=== PATIENT | female | born 1970 | race Hispanic/Latino ===

== ENCOUNTER 2025-07-07 06:24 | Day surgery (SDC) | payer OTHER ==
[~2025-07-07] VITALS: Ht 152.4 cm; Wt 68.0 kg
[2025-07-07] VITALS (13 sets, daily range): BP systolic 85–130; BP diastolic 37–64; PULSE 3–99; RESP 15–18; TEMP 97.1–98
[~2025-07-07 06:24] MED LIST: CHOL200013 PO; IRON1CAP32 PO; MEDR10TA PO; METF-444 PO; MONT-39 PO; PANT40TA54 PO; PRAV10TA37 PO; PROP10TA10 PO
[2025-07-07] MEDS ORDERED: METR-172 PO (07:22)
[2025-07-07] MEDS ORDERED: CLAR-44 PO (07:22)
[2025-07-07] MEDS ORDERED: LIDOCAINE PF 100MG/5ML (2%) SYRINGE 5ML ONE (07:58)
--- NOTE | 2025-07-07 10:02 | NUR ---
PENDING DAUGHTER TO ARRIVE TO CERTIFIED PHARMACIST ASSISTANT PT.
--- NOTE | 2025-07-07 10:45 | NUR ---
PT TAKEN OUT VIA WHEELCHAIR DISCHARGE INSTRUCTIONS BOTH WRITTEN AND VERBAL GIVEN TO BOTH PT AND DAUGHTER CURBSIDE BY CAR. DAUGHTER DRIVING PT HOME
[2025-07-07] MEDS: 0.9%NACL 1000ML 1,000 ML IV ONE (11:29)
[2025-07-10] MEDS ORDERED: LACT-441 PO (08:39)
== END 2025-07-07 10:45 | disposition home or self-care (01) ==
LOC: ENDO 06:24 → DAH 06:24 → ENDO 10:45
PROVIDERS: ATTEND Student in an Organized Health Care Education/Training Program
DX: K63.2 Fistula of intestine (principal); K57.30 Diverticulosis of large intestine without perforation or abscess without bleeding; K21.9 Gastro-esophageal reflux disease without esophagitis; E11.9 Type 2 diabetes mellitus without complications; E03.9 Hypothyroidism, unspecified; I10 Essential (primary) hypertension; Z88.8 Allergy status to other drugs, medicaments and biological substances; Z88.6 Allergy status to analgesic agent; Z79.899 Other long term (current) drug therapy
CPT/HCPCS: 45378; 82948; 81025; J7030 ×2; J2003; J2704 ×2; A4620; A4215; J3490

== ENCOUNTER 2025-07-20 18:07 | Inpatient (IN) | payer OTHER ==
[~2025-07-20] VITALS: Ht 152.4 cm; Wt 55.2 kg
[~2025-07-20 18:07] MED LIST changes: +LACT-441 PO
--- NOTE | 2025-07-20 18:21 | ERN ---
ED Note History of Present Illness Stated Complaint: ABDOMINAL DISTENTION Chief Complaint: Abdominal Pain Time Seen by MD: 18:10 Dictation: PATIENT IS A 55-YEAR-OLD FEMALE COMING IN TODAY STATUS POST A COLOVESICULAR TAKE DOWN ON 07/[address] JHAVERI. SHE IS COMING IN TODAY WITH COMPLAINTS OF ABDOMINAL BLOATING UNABLE TO HAVE A BOWEL MOVEMENT NAUSEA FEVER CHILLS. OTHER COMPLAINT IS SHE HAS A SUNG CATHETER IN PLACE WITH HEMATURIA URINE. STATES SHE WAS DISCHARGED ON 07/13/2025 HOWEVER DOES NOT FEEL GOOD. PATIENT NOTED TO HAVE FEVER IN TRIAGE AND TACHYCARDIC/HEART RATE 130S. Allergies: Coded Allergies: aspirin (Unverified Allergy, Unknown, 07/02/25) bismuth subsalicylate (Unverified Allergy, Unknown, 07/02/25) pork derived (porcine) (Unverified Allergy, Unknown, 07/02/25) Uncoded Allergies: BISMUTH (Allergy, Unknown, 07/02/25) Home Meds Reported Medications Cyclobenzaprine HCl (Cyclobenzaprine HCl) 5 Mg Tablet, 1 TAB PO TIDP PRN for muscle spasms for 10 Days, #30 TAB 0 Refills 07/21/25 Propranolol HCl (Propranolol HCl) 10 Mg Tablet, 2 TAB PO BID for 30 Days, #60 TAB 0 Refills 07/21/25 Acetaminophen with Codeine (Acetaminophen-Cod #3 Tablet) 300 Mg-30 Mg Tablet, 1 TAB PO Q6HPRN PRN for pain for 7 Days, #28 TAB 0 Refills 07/21/25 Acetaminophen with Codeine (Acetaminophen-Cod #3 Tablet) 300 Mg-30 Mg Tablet, 1 TAB PO [id number] PRN for pain for 30 Days, #60 TAB 0 Refills 07/21/25 Doxycycline Hyclate (Doxycycline Hyclate) 100 Mg Capsule, 100 CAP PO BID for 10 Days, #20 CAP 0 Refills 07/21/25 Ibuprofen (Ibuprofen 800 mg Tab) 800 Mg Tab, 1 TAB PO TID for pain for 10 Days, #30 TAB 0 Refills 07/21/25 Ondansetron HCl (Ondansetron HCl) 4 Mg Tablet, 1 TAB PO Q6HPRN PRN for nausea/vomiting, #10 TAB 0 Refills 07/21/25 Pantoprazole Sodium (Pantoprazole Sodium) 40 Mg Tablet., 40 MG PO BID, TAB 8/29/25 Iron Fum & P/FA/Vit B & C No.9 (Integra Plus Capsule) 125 Mg Iron-1 Mg Capsule, 1 EACH PO HS, CAP 07/02/25 Medroxyprogesterone Acetate (Provera) 10 Mg Tablet, 10 MG PO DAILY, TAB 07/02/25 Metformin HCl (Metformin HCl) 500 Mg Tablet, 500 MG PO BID, TAB 07/02/25 Montelukast Sodium (Montelukast Sodium) 10 Mg Tablet, 10 MG PO HS, TAB 07/02/25 Pravastatin Sodium (Pravastatin Sodium) 10 Mg Tablet, 10 MG PO HS, TAB 07/02/25 Cholecalciferol (Vitamin D3) (Vitamin D3) 50 Mcg (2000 Unit) Capsule, 50 MCG PO DAILY, CAP 07/02/25 Past Medical History Past Medical History: Diabetes-Type II, Hypotension Surgical History: Other Surgical History Other: BOWEL SURGERY History: Not Applicable RN Note Reviewed/Agreed w/PFSH: Yes Review of System Dictation CONSTITUTIONAL: NEGATIVE EXCEPT FOR HPI FEVER CHILLS HEAD/FACE: NEGATIVE EXCEPT FOR HPI EENT: NEGATIVE EXCEPT FOR HPI RESPIRATORY: NEGATIVE EXCEPT FOR HPI GASTROINTESTINAL/ABDOMINAL: NEGATIVE EXCEPT FOR HPI NAUSEA VOMITING WITH ABDOMINAL DISTENTION GENITOURINARY: NEGATIVE EXCEPT FOR HPI SUNG CATHETER WITH HEMATURIA MUSCULOSKELETAL: NEGATIVE EXCEPT FOR HPI INTEGUMENTARY: NEGATIVE EXCEPT FOR HPI NEUROLOGICAL/PSYCH: NEGATIVE EXCEPT FOR HPI HEMATOLOGIC/LYMPHATIC: NEGATIVE EXCEPT FOR HPI ALL SYSTEMS NEGATIVE, EXCEPT NOTED ABOVE. 13 POINT REVIEW OF SYSTEMS ASSESSED AND ALL NEGATIVE EXCEPT FOR ABOVE. Initial Vital Sign VS Vital Signs Date Time Temp Pulse Resp B/P (MAP) Pulse Ox O2 Delivery O2 Flow Rate FiO2 07/20/25 18:09 98.4 125 20 96 Room Air 07/20/25 19:35 92/46 0 21 Physical Exam Dictation VITAL SIGNS REVIEWED GENERAL APPEARANCE: ALERT, ORIENTED X 3, N MODERATE ACUTE DISTRESS, WELL DEVELOPED, NOURISHED. HEAD AND FACE: NON-TRAUMATIC. EYES: PERRL, PINK CONJUNCTIVAS, EYELID NO TRAUMA, ANTERIOR CHAMBER WITH ARCUS SENILIS. EARS: PINNAS INTACT AND NO SIGNS OF TRAUMA OR ERYTHEMA EAR CANALS CLEAR AND NO DISCHARGE TM NO ERYTHEMA NOSE: NO DISCHARGE, NO BLEEDING. OROPHARYNX: MOUTH NORMAL, TONGUE PINK, PHARYNX CLEAR,NO ERYTHEMA, TONSILS NO EXUDATES, NO ABSCESSES NOTED, MUCOUS MEM BRANE MOIST NECK: SUPPLE, NON-TENDER, NO THYROMEGALY, NO MASSES, NO JVD, NO BRUITS BREAST:DEFERRED CHEST:NO TENDERNESS, NO CREPITUS, NO PARADOXICAL MOVEMENT, NO RETRACTIONS LUNGS:CLEAR, WELL-VENTILATED, SYMMETRIC, NO RALES, NO WHEEZING, NO RHONCHI, NO STRIDOR, GOOD BREATH SOUNDS BILATERALLY HEART: REGULAR RATE, REGULAR RHYTHM, NO MURMUR, NO GALLOPS VASCULAR: NO PERIPHERAL EDEMA, ABDOMEN: SOFT, HYPOACTIVE BOWEL SOUNDS WITH ABDOMINAL DISTENTION NOTED. RECTAL: DEFERRED GENITAL: DEFERRED NEUROLOGICAL: NORMAL SPEECH, MOTOR FUNCTION INTACT, SENSORY FUNCTION INTACT MUSCULOSKELETAL: NECK NONTENDER, FULL RANGE OF MOTION, BACK NONTENDER, FULL RANGE OF MOTION, EXTREMITIES: NONTENDER, FULL RANGE OF MOTION SKIN: COLOR PINK, DRY, NO TURGOR, NO RASH, NO LACERATIONS, NO ABRASIONS, NO CONTUSIONS. LYMPHATIC: DEFERRED Results (Laboratory/Radiology) Laboratory/Radiology Laboratory Tests Test 08/10/25 11:32 08/10/25 16:55 08/10/25 20:16 08/11/25 02:06 Whole Blood Glucose 161 MG/DL (70-110) H 148 MG/DL (70-110) H 200 MG/DL (70-110) H White Blood Count 5.1 K/uL (4.8-10.8) Red Blood Count 3.00 MIL/uL (4.00-5.50) L Hemoglobin 8.8 g/dL (12.0-16.0) L Hematocrit 27.4 % (36-48) L Mean Corpuscular Volume 91.3 fL (79-99) Mean Corpuscular Hemoglobin 29.3 pg (27.0-33.0) Mean Corpuscular Hemoglobin Concent 32.1 g/dL (32.0-36.0) Red Cell Distribution Width 17.4 % (11.0-15.5) H Platelet Count 182 K/uL (130-400) Mean Platelet Volume 10.0 fL (7.5-10.5) Nucleated Red Blood Cells 0.0 % (0.0-0.19) Prothrombin Time 13.8 SEC (9.6-11.6) H Prothromb Time International Ratio 1.34 (0.85-1.15) H Activated Partial Thromboplast Time 32.2 SEC (26.3-35.5) Sodium Level 135 mmol/L (136-145) L Potassium Level 4.4 mmol/L (3.5-5.1) Chloride Level 104 mmol/L (101-111) Carbon Dioxide Level 22 mmol/L (21-32) Blood Urea Nitrogen 16 mg/dL (7-18) Creatinine 0.6 mg/dL (0.5-1.0) Glomerular Filtration Rate Calc 105 mL/min (>90) Random Glucose 112 mg/dL (70-105) H Total Calcium 8.6 mg/dL (8.5-10.1) Phosphorus Level 2.7 mg/dL (2.5-4.9) Magnesium Level 1.90 mg/dL (1.80-2.40) Total Bilirubin 0.5 mg/dL (0.2-1.0) Aspartate Amino Transf (AST/SGOT) 34 U/L (10-37) Alanine Aminotransferase (ALT/SGPT) 14 U/L (12-78) Alkaline Phosphatase 121 U/L (50-136) Total Protein 7.2 g/dL (6.0-8.3) Albumin 2.5 g/dL (3.5-5.0) L Test 08/11/25 05:21 08/11/25 11:44 08/11/25 15:48 08/11/25 19:56 Whole Blood Glucose 100 MG/DL (70-110) 123 MG/DL (70-110) H 177 MG/DL (70-110) H 112 MG/DL (70-110) H Test 08/12/25 04:14 08/12/25 05:36 08/12/25 11:15 08/12/25 16:38 White Blood Count 4.6 K/uL (4.8-10.8) L Red Blood Count 2.84 MIL/uL (4.00-5.50) L Hemoglobin 8.3 g/dL (12.0-16.0) L Hematocrit 26.5 % (36-48) L Mean Corpuscular Volume 93.3 fL (79-99) Mean Corpuscular Hemoglobin 29.2 pg (27.0-33.0) Mean Corpuscular Hemoglobin Concent 31.3 g/dL (32.0-36.0) L Red Cell Distribution Width 17.6 % (11.0-15.5) H Platelet Count 195 K/uL (130-400) Mean Platelet Volume 10.0 fL (7.5-10.5) Nucleated Red Blood Cells 0.0 % (0.0-0.19) Sodium Level 135 mmol/L (136-145) L Potassium Level 3.8 mmol/L (3.5-5.1) Chloride Level 103 mmol/L (101-111) Carbon Dioxide Level 21 mmol/L (21-32) Blood Urea Nitrogen 15 mg/dL (7-18) Creatinine 0.7 mg/dL (0.5-1.0) Glomerular Filtration Rate Calc 101 mL/min (>90) Random Glucose 169 mg/dL (70-105) H Total Calcium 8.4 mg/dL (8.5-10.1) L Whole Blood Glucose 161 MG/DL (70-110) H 187 MG/DL (70-110) H 111 MG/DL (70-110) H Test 08/12/25 19:37 08/13/25 04:53 08/13/25 05:07 Whole Blood Glucose 217 MG/DL (70-110) #H 117 MG/DL (70-110) H White Blood Count 3.9 K/uL (4.8-10.8) L Red Blood Count 2.97 MIL/uL (4.00-5.50) L Hemoglobin 8.9 g/dL (12.0-16.0) L Hematocrit 27.6 % (36-48) L Mean Corpuscular Volume 92.9 fL (79-99) Mean Corpuscular Hemoglobin 30.0 pg (27.0-33.0) Mean Corpuscular Hemoglobin Concent 32.2 g/dL (32.0-36.0) Red Cell Distribution Width 17.3 % (11.0-15.5) H Platelet Count 183 K/uL (130-400) Mean Platelet Volume 9.4 fL (7.5-10.5) Nucleated Red Blood Cells 0.0 % (0.0-0.19) Sodium Level 137 mmol/L (136-145) Potassium Level 4.0 mmol/L (3.5-5.1) Chloride Level 106 mmol/L (101-111) Carbon Dioxide Level 21 mmol/L (21-32) Blood Urea Nitrogen 9 mg/dL (7-18) Creatinine 0.7 mg/dL (0.5-1.0) Glomerular Filtration Rate Calc 101 mL/min (>90) Random Glucose 124 mg/dL (70-105) H Total Calcium 8.5 mg/dL (8.5-10.1) Labs Reviewed?: Yes EKG Comment: EKG SINUS TACHYCARDIA/HEART RATE 128/AXIS NORMAL/NO ECTOPY ED Course ED Course Orders Procedure Category Date Status Time Zosyn 3.375gm+Ns 50ml PHA 08/10/25 In Process (Zosyn 3.375gm+Ns 13:00 Cbc Without LAB 08/11/25 Complete Differential 04:00 Comprehensive LAB 08/11/25 Complete Metabolic Panel 04:00 Magnesium LAB 08/11/25 Complete 04:00 Phosphorus LAB 08/11/25 Complete 04:00 Clear Liquid DIET 08/10/[address] Midline Access CPOE 08/11/25 Transmitted 01:56 Pt And Ptt LAB 08/11/25 Complete 01:56 Chest 1vw RAD 08/11/25 Resulted 06:41 Hydromorphone 0.5mg PHA 08/11/25 In Process Syg (Dilaudid 0.5mg 11:00 Fentanyl 25 Mcg/Hr PHA 08/12/25 Complete Patch (Duragesic 25 M 15:30 Methocarbamol PHA 08/11/25 In Process (Methocarbamol) 16:00 Gabapentin 100 Mg Cap PHA 08/11/25 In Process (Neurontin 100 Mg 21:00 Cbc Without LAB 08/12/25 Complete Differential 04:00 Basic Metabolic Panel LAB 08/12/25 Complete 04:00 M.V.I. Iv [Adult] PHA 08/12/25 In Process (M.V.I. Iv [Adult])... 20:00 Fat Emulsions 20% PHA 08/13/25 In Process 250ml (Intralipid 20% 10:00 Full Liquid DIET 08/12/25 Transmitted Dinner Fentanyl 25 Mcg/Hr PHA 08/12/25 In Process Patch (Duragesic 25 M 21:00 *Nursing CPOE 08/12/25 Transmitted Communication: 16:18 Hydrocodone/Apap PHA 08/12/25 In Process 5/325 ([place] 5/325mg) 16:30 Compound Po Narcotic PHA 08/12/25 In Process (Compound Po Narcot 21:00 Cbc Without LAB 08/13/25 Complete Differential 04:00 Basic Metabolic Panel LAB 08/13/25 Complete 04:00 Vital Signs Date Time Temp Pulse Resp B/P (MAP) Pulse Ox O2 Delivery O2 Flow Rate FiO2 08/13/25 08:00 98.2 85 18 112/67 97 Room Air 08/13/25 04:00 98.1 79 20 100/54 95 Room Air 08/13/25 00:00 98.2 96 18 107/56 96 Room Air 08/12/25 22:20 93 110/60 08/12/25 22:05 96 Room Air* 0 21 08/12/25 20:00 98.8 92 18 107/66 96 Room Air 08/12/25 13:01 95 Room Air* 0 21 08/12/25 11:59 97.9 83 19 100/65 96 Room Air 08/12/25 08:03 97.9 88 19 99/55 97 Room Air 08/12/25 04:00 97.9 82 18 94/55 95 Room Air 08/12/25 00:00 100.0 98 20 112/70 99 Room Air 08/11/25 22:30 95 Room Air* 0 21 08/11/25 20:00 97.9 92 20 112/65 96 Room Air 08/11/25 12:00 97.5 82 16 96/60 97 Room Air 08/11/25 08:00 97.9 78 20 88/62 99 Room Air 08/11/25 08:00 96 Room Air* 0 08/11/25 03:37 98.2 91 18 99/51 96 Room Air 08/10/25 23:44 98.1 88 18 111/59 96 Room Air 21 08/10/25 19:45 98.2 94 18 106/70 96 Room Air 21 08/10/25 19:15 96 Room Air* 0 08/10/25 16:00 98.4 83 18 112/58 94 Room Air 08/10/25 12:00 97.3 73 18 98/61 93 Room Air 1915/patient has a 21.5 WBCs with lactic acid of 8.0. We will initiate resuscitation with 30 per kilos fluids and Zosyn 3.375. Patient will be monitored for hemodynamic stability 2125/SPOKE WITH DR. JHAVERI. REVIEWED CT PRELIMINARY FINDINGS AND INTERVENTIONS FOR LACTIC ACID EIGHT AND WBCS 21.5 SHE SAID ADMIT PATIENT TO THE HOSPITAL AND CALL HER BACK TO WITH THE RESULTS OF THE CT SCAN. Medical Decision Making MDM MDM: DIFFERENTIAL DIAGNOSIS: SEPSIS/DEHYDRATION/RENAL FAILURE/INTRA-ABDOMINAL ABSCESS/DEHYDRATION/ELECTROLYTE IMBALANCE/ACS/AMI RATIONALE: TESTS CONSIDERED AND ORDERED SECONDARY TO SHARED DECISION EKG/LABS/RADIOLOGY MEDICATIONS-PER MEDICATION RECONCILIATION NEED FOR HOSPITALIZATION: PATIENT DOES MEET CRITERIA FOR HOSPITALIZATION. NPO/FLUID RESUSCITATION WITH BROAD-SPECTRUM ANTIBIOTICS NEED FOR EMERGENCY MAJOR/MINOR SURGERY: CONSULTATION WITH POSSIBLE REVISION THERE ARE NO SOCIAL CONCERNS WITH THIS PATIENT. PRESCRIPTION DRUG MANAGEMENT PRESCRIPTIONS WILL INCLUDE SYMPTOMATIC CARE PATIENT'S PRIOR EXTERNAL MEDICAL RECORDS FROM OTHER ER VISITS WERE REVIEWED BY ME INDICATED. PRIOR TESTING AND RESULTS FROM PREVIOUS VISITS WERE REVIEWED. PRIOR TESTS WERE TAKEN INTO ACCOUNT WITH MEDICAL DECISION MAKING AND RESOURCE UTILIZATION, INDEPENDENT HISTORIAN/HISTORIANS WERE USED TO OBTAIN COMPLETE MEDICAL HISTORY. I INDEPENDENTLY INTERPRETED THE TEST THAT WERE PERFORMED, RESULTS WERE REVIEWED BY ME AND CONSIDERED FINDINGS ON RADIOLOGY IF ORDERED. MEDICAL MANAGEMENT AND EXAMINATION INTERPRETATION DISCUSSIONS WERE HAD BY ME WITH OTHER QUALIFIED HEALTHCARE PROFESSIONALS INDICATED FOR THE PATIENT'S CARE. DX & DISP Disposition: Inpatient Decision to Admit Time: 21:32 Departure Condition: Stable Referrals: SUSAN SEBASTIAN DO (PCP) Time of Disposition: 21:32 I have reviewed the case, and I agree with, Diagnosis and Plan ALHAJI SHINE DATA COLLECTION TECHNICIAN Jul 20, 2025 18:21
[2025-07-20] MEDS: 0.9%NACL 1000ML 1,000 ML IV ONE (18:30)
--- NOTE | 2025-07-20 18:51 | EKG ---
[facility] Test Date: 2025-07-20 Test Time: 18:45:50 Pat Name: DALLAS JULIEN Department: [facility] [address] Room: 206 Gender: F Validation Consultant: [id number] : 1970 Requested By: ALHAJI SHINE Order Number: [id number] Reading MD: Jalen Baig Measurements Intervals [place] Rate: 128 P: 23 MT: 126 QRS: 38 QRSD: 85 T: 0 QT: 325 QTc: 475 Interpretive Statements Sinus tachycardia Compared to ECG 07/02/2025 09:03:10 Sinus rhythm no longer present Electronically Signed On 07-21-2025 14:37:31 CDT by Jalen Baig Please click the below link to view image of tracing.
[2025-07-20 18:54] LABS: IMMATURE GRANULOCYTE ABSOLUTE 0.43 K/uL (0-1); NUCLEATED RED BLOOD CELLS 0.0 % (0.0-0.19); PLATELET COUNT (AUTO) 339 K/uL (130-400); RED BLOOD CELL COUNT(AUTO) 4.42 MIL/uL (4.00-5.50); RED CELL DISTRIBUTION WIDTH 17.1 % (11.0-15.5); WHITE BLOOD COUNT (AUTO) 21.2 K/uL (4.8-10.8)
[2025-07-20 19:17] LABS: CREATININE 3.1 mg/dL (0.5-1.0); GLOMERULAR FILTR. RATE CALC 17.0 mL/min (>90); GLUCOSE,RANDOM 92.0 mg/dL (70-105); SODIUM SERUM 132.0 mmol/L (136-145); UREA NITROGEN, BLOOD 26.0 mg/dL (7-18)
--- NOTE | 2025-07-20 19:35 | NUR ---
ASSUMED PT CARE AT THIS TIME
--- NOTE | 2025-07-20 19:41 | NUR ---
Izabela martinez in [facility] - 07/20/25 at 2110 by MARGOT ASSUMED PT CARE AT THIS TIME
--- NOTE | 2025-07-20 19:48 | HMCIMG ---
EXAM: XR Chest, 1 View. CLINICAL HISTORY: 55 year old female with chest pain and cough. COMPARISON: None provided. FINDINGS: LUNGS: The lungs demonstrate evidence of atelectasis. PLEURAL SPACES: A small right pleural effusion is present. HEART: The heart size is normal. BONES: No acute osseous abnormality. IMPRESSION: 1. Small right pleural effusion and right lung base atelectasis. /Emily
[2025-07-20] MEDS: 0.9%NACL 1000ML 2,109 ML IV ONE (20:28)
[2025-07-20] MEDS ORDERED: IOHEXOL-350 75 ML VIAL IV ONE (20:31)
[2025-07-20] MEDS: ZOSYN 3.375GM+NS 50ML 50 ML IVPB STA (20:32)
[2025-07-20] MEDS: VANCOMYCIN KIT 1 GM/250 ML IV.KIT IV STA (22:06)
--- NOTE | 2025-07-20 22:19 | HMCIMG ---
EXAM: CT Abdomen and Pelvis with Intravenous Contrast CLINICAL HISTORY: 55-year-old female with abdominal pain. TECHNIQUE: Axial computed tomography images of the abdomen and pelvis with intravenous contrast. Dose reduction technique was used including one or more of the following: automated exposure control, adjustment of mA and kV according to patient size, and/or iterative reconstruction. CONTRAST: Omnipaque 350, 75 mL COMPARISON: None provided. FINDINGS: LUNG BASES: Atelectasis and scarring at the lung bases. LIVER: Unremarkable. GALLBLADDER AND BILE DUCTS: Tiny gallstone seen. PANCREAS: Unremarkable. SPLEEN: Unremarkable. ADRENAL GLANDS: Unremarkable. KIDNEYS, URETERS, AND BLADDER: Dueñas catheter seen in the bladder lumen. No hydronephrosis or nephrolithiasis. No ureteral calculi. STOMACH AND BOWEL: Edema or loops of small bowel suggesting moderate small bowel enteritis. Free air in the upper abdomen is seen, suggesting perforated bowel. No obstruction. APPENDIX: No CT evidence for appendicitis. PERITONEUM: Moderate ascites in the abdomen and pelvis. No free air under the diaphragm. LYMPH NODES: No lymphadenopathy. REPRODUCTIVE: Unremarkable as visualized. VASCULATURE: No aortic aneurysm. ABDOMINAL WALL AND SOFT TISSUES: There is air in the subcutaneous soft tissue seen anteriorly, suggesting recent postsurgical changes; please correlate with surgical history. BONES: No fracture or suspicious osseous abnormality. IMPRESSION: 1. Moderate small bowel enteritis with free air in the upper abdomen, suggesting perforated bowel versus post surgical changes. No obstruction. 2. Moderate ascites in the abdomen and pelvis. 3. Air in the subcutaneous soft tissue anteriorly, suggesting recent postsurgical changes; please correlate with surgical history. /Rapidan
--- NOTE | 2025-07-20 23:10 | HP ---
History of Present Illness Reason for Visit: abdominal pain History of Present Illness Ms. Gray is a 55-year-old female that was seen and examined today on 07/20/2025. Patient is a good historian of personal health Patient reports that she came to the emergency department with a chief complaint of abdominal pain. Onset was 07/09/2025. Location is all four quadrants. Duration is constant. Character is described as pressure and " like I have a lo t of gas trapped. " there was no alleviating factors. There was no aggravating factors. Patient reports associated abdominal swelling. Today in the emergency department WBCs 21.2, left shift neutrophils 85.5%, BUN 26, creatinine 3.1, GFR 17, lactic acid 8.0, no urinalysis has been collected or sent to lab, CT of abdomen and pelvis showed of free air in the abdomen which could be a suspected bowel perforation versus postsurgical changes, moderate ascites, fissure post surgical changes. Chest x-ray shows right pleural effusion. Additionally patient had a heart rate of 125, respirations 26, together with leukocytosis and lactic acidosis patient met clinical sepsis criteria additionally patient's blood pressure dropped to 85/50 mmHg requiring vasopressor support therefore meeting criteria for septic shock. Patient will be admitted to the intensive care unit. Emergency room physician spoke with patient's surgeon, Dr. Gann who requested patient be admitted under hospitalist service and she will follow this case along. Past Medical History Patient History: Alzheimer's disease MOTHER, Asthma 19 SON (childhood) Carcinomas FATHER, (throat and colon then simran) Completed stroke MOTHER, (mini) Diabetes mellitus MOTHER, FATHER, Hypertension MOTHER, ADDITIONAL PAST MEDICAL HISTORY: [Diabetes mellitius type2, liver cirrhosis, esophageal varices] SOCIAL HISTORY: [Negative for smoking, alcohol use, drug use. Patient lives with the daughter, Jennifer Wood. Patient is typically independent of all her ADLs. Patient denies difficulty paying her bills.] SURGICAL HISTORY: [Right knee surgery, on 07/09/2025 repair of colo vesicular fistula with sigmoid colon resection and anastomosis.] Review of Systems General: No Fever, No Chills, No Night Sweats, No Fatigue, No Malaise, No Appetite, No Other HEENT: No Head Aches, No Visual Changes, No Eye Pain, No Ear Pain, No Dysphasia, No Sinus Congestion, No Post Nasal Drip, No Sore Throat, No Other Pulmonary: No Dyspnea, No Cough, No Pleuritic Chest Pain, No Other Cardiovascular: No: Chest Pain, Palpitations, Orthopnea, Paroxysmal Noc. Dyspnea, Edema, Lt Headedness, Other Gastrointestinal: Abdominal Pain; No: Nausea, Vomiting, Diarrhea, Constipation, Melena, Hematochezia, Other Genitourinary: No Dysuria, No Frequency, No Incontinence, No Hematuria, No Retention, No Other Musculoskeletal: No: other, neck pain, shoulder pain, arm pain, back pain, hand pain, leg pain, foot pain Skin: No Urticaria, No Rash, No Other Neurological: No: Weakness, Numbness, Incoordination, Change in speech, Confusion, Seizures, Other Allergies: Coded Allergies: aspirin (Unverified Allergy, Unknown, 07/02/25) bismuth subsalicylate (Unverified Allergy, Unknown, 07/02/25) pork derived (porcine) (Unverified Allergy, Unknown, 07/02/25) Uncoded Allergies: BISMUTH (Allergy, Unknown, 07/02/25) Scheduled Cholecalciferol (Vitamin D3) (Vitamin D3), 50 MCG PO DAILY, (Reported) Iron Fum & P/FA/Vit B & C No.9 (Integra Plus Capsule), 1 EACH PO HS, (Reported) Lactulose (Lactulose), 15 ML PO BID, (Reported) Medroxyprogesterone Acetate (Provera), 10 MG PO DAILY, (Reported) Metformin HCl (Metformin HCl), 500 MG PO BID, (Reported) Montelukast Sodium (Montelukast Sodium), 10 MG PO HS, (Reported) Pantoprazole Sodium (Pantoprazole Sodium), 40 MG PO BID, (Reported) Pravastatin Sodium (Pravastatin Sodium), 10 MG PO HS, (Reported) Propranolol HCl (Propranolol HCl), 10 MG PO AM, (Reported) Exam Vital Signs Vital Signs Date Time Temp Pulse Resp B/P (MAP) Pulse Ox O2 Delivery O2 Flow Rate FiO2 07/20/25 22:27 105 26 100/57 95 Room Air* 0 21 07/20/25 19:35 98.1 General Appearance: Alert, Oriented X3, Cooperative, severe distress HEENT: Atraumatic, EOMI Respiratory: Other (Diminished air entry to bilateral lower lobes, positive right lower lobe rales) Cardiovascular: Normal S1, Normal S2, Other (Tachycardia) Abdominal: Other (Has been large and rounded, positive moderate distention) Extremities: Other (+1-2 2 pitting edema to bilateral lower extremities) Skin: No significant lesion (Well-approximated abdominal surgical incisions) Neuro: Normal gait, Normal speech, Strength at 5/5 X4 ext, Sensation intact, Cranial nerves 3-12 NL Psych/Mental Status: Mental status NL, Mood NL, Thoughts/Content NL Additional PE Genitourinary: Positive Dueñas catheter in place Assessment/Plan ASSESSMENT: [ Septic shock, POA, requiring vasopressor support with Levophed Hypotension, POA, secondary to above lactic acidosis, poa leukocytosis, POA Suspected bowel perforation versus postsurgical changes by CT of abdomen on Ascites, POA Right pleural effusion, POA CYNTHIA versus CKD, POA Diabetes mellitius type2 Liver cirrhosis] PLAN: [ Admit patient to intensive care unit as inpatient status. Place patient on telemetry monitoring. Patient will be followed by critical care service. Septic shock, lactic acidosis, leukocytosis: Place patient received fluid resuscitation with 0.9% NS 30 mL/kg Start empiric antibiotic therapy with Zosyn Check procalcitonin, follow up with the results Repeat lactic acid in a.m. Consult infectious disease service, Dr. Tripathi Hypotension: Start Levophed per hospital protocol Further vasopressor support recommendations from critical care service Suspected bowel perforation versus postsurgical changes: Patient will be followed by General surgery Service, Dr. Gann Keep patient NPO Check preprocedure labs, CBC, BMP, magnesium, phosphorus, PTT, UA, type and screen, EKG, CXR As needed analgesia with morphine Liver cirrhosis, ascites, right pleural effusion: Avoid diuresis at this time given patient's renal insufficiency. Monitor intake and output every shift. Weight patient daily. Check ammonia level, follow up with the results. Avoid oral lactulose until further guidance given from general surgery service as patient recently had a colon resection. Consider consulting Interventional Radiology for paracentesis if deemed ne cessary and recommended by General surgery Service CYNTHIA versus CKD: Acute kidney injury: Calculate FENA Check urine sodium, creatinine, osmolality Avoid nephrotoxic agents when possible Renally dose all medications when possible Consult Nephrology Service, Dr. Bhatla Monitor patient's labs. Weight patient daily. Monitor intake and output. Diabetes mellitus type 2: Check hemoglobin A1c in a.m. Glucometer checks a.c. and HS 1800 ADA diet Humalog sliding scale full-dose GI prophylaxis, Protonix DVT prophylaxis, Deep's and SCDs avoid anticoagulation at this time due to impending surgical evaluation. Critical Care Time: I spent ___51___ minutes of critical care time with the patient. I reviewed lab work, change the patient's medication, and coordinated protocol in the event of tachycardia or desaturation. The patient status remains unchanged ADVANCED CARE PLANNING 1. Which of the following were discussed? Hospice Care - Yes Therapeutic options - yes Advance Directives - Yes - patient states she does not have any advance directives in place at this time, however her daughter can make decisions for her if she becomes unable. Other discussions - patient wishes to remain a full code 2. Discussed with who? Patient 3. Voluntary nature of this service was explained to the patient? Yes 4. Amount of time spent - ___16 minutes____ 5. Reviewed by Physician? (if this service was performed by NPP) Yes This document was generated in part using voice recognition software, occasional wrong word or sound alike substitutions may have occurred due to the inherent limitations of voice recognition software. Read the chart carefully and recognize using context, where the substitutions have occurred. Although every effort was made to edit the content, life insurance salesperson and typing errors may occur ATTESTATION BY PHYSICIAN I have seen and examined the patient. I reviewed the documentation, medical decision making, and treatment plan as noted by the mid-level provider above. I agree with the findings and plan of care.] JOSELINE BA [facility] Jul 20, 2025 23:10
--- NOTE | 2025-07-20 23:50 | NUR ---
PENDING HOME MEDICATIONS LIST, PATIENT'S DAUGHTER STATED SHE WILL BRING MEDICATIONS IN THE AM
[2025-07-20] MEDS: NOREPINEPHRIN 4MG/NS 250ML 250 ML IV SCH (23:55)
[2025-07-21] VITALS (74 sets, daily range): BP systolic 82–156; BP diastolic 35–90; PULSE 79–116; RESP 10–37; TEMP 96.6–98.3; O2SAT 93–100
[2025-07-21] MEDS: VASOpressin 20 UNITS/ML 1ML Vi 20 UNITS in 0.9%NACL 100ML 100 ML IV SCH (00:10)
[2025-07-21 00:30] LABS: APPEARANCE,URINE CLOUDY (CLEAR); GLUCOSE, URINE (UA) NEGATIVE (NEGATIVE); LEUKOCYTE ESTERASE ,URINE NEGATIVE Leu/uL (NEGATIVE); NITRATE,URINE NEGATIVE (NEGATIVE); OCCULT BLOOD,URINE +- (TRACE) (NEGATIVE)
[2025-07-21 00:42] LABS: ADD UA MICROSCOPIC YES
[2025-07-21 00:46] LABS: SQUAMOUS EPITHELIAL CELL,UR Few /HPF (0-2)
[2025-07-21 00:47] LABS: CREATININE,URINE RANDOM 132.17 mg/dL (30-135)
--- NOTE | 2025-07-21 01:23 | NUR ---
REPORT GIVEN TO PRINCESS PENA
[2025-07-21] MEDS: ZOSYN 3.375GM +NS 50ML IV SCH (02:56)
[2025-07-21] MEDS: LACTATED RINGERS 1000ML 1,000 ML IV SCH ×2 (02:57→14:28)
[2025-07-21 06:07] LABS: IMMATURE GRANULOCYTE ABSOLUTE 0.43 K/uL (0-1); NUCLEATED RED BLOOD CELLS 0.1 % (0.0-0.19); PLATELET COUNT (AUTO) 284 K/uL (130-400); RED BLOOD CELL COUNT(AUTO) 3.57 MIL/uL (4.00-5.50); RED CELL DISTRIBUTION WIDTH 17.4 % (11.0-15.5); WHITE BLOOD COUNT (AUTO) 25.3 K/uL (4.8-10.8)
[2025-07-21 06:18] LABS: INR 1.54 (0.85-1.15)
[2025-07-21 06:32] LABS: CREATININE 2.0 mg/dL (0.5-1.0); GLOMERULAR FILTR. RATE CALC 29.0 mL/min (>90); GLUCOSE,RANDOM 96.0 mg/dL (70-105); PHOSPHORUS 4.8 mg/dL (2.5-4.9); SODIUM SERUM 133.0 mmol/L (136-145); UREA NITROGEN, BLOOD 28.0 mg/dL (7-18)
--- NOTE | 2025-07-21 07:18 | HMCIMG ---
EXAM: CR Chest, single view. CLINICAL HISTORY: PICC line COMPARISON: Prior same day chest radiograph. FINDINGS: Right-sided PICC catheter with tip in the cavoatrial junction. Subsegmental atelectasis in the right lower lobe. No evidence of pleural effusion or pneumothorax. The cardiomediastinal silhouette is within normal limits. No acute osseous abnormality. IMPRESSION: Right-sided PICC catheter with tip in the cavoatrial junction. Subsegmental atelectasis in the right lower lobe. No evidence of pleural effusion or pneumothorax. Compared to the prior study, there is interval placement of the right-sided PICC line and interval resolution of the subsegmental atelectasis in the left lower lobe. /[place]
--- NOTE | 2025-07-21 09:29 | PN ---
[facility] PROGRESS NOTE Date of Service: Jul 21, 2025 Time of Service: 09:20 SUBJECTIVE: Ms. Gray is a 55-year-old female that was seen and examined today on 07/20/2025. Patient reports that she came to the emergency department with a chief complaint of abdominal pain. Onset was 07/09/2025. Location is all four quadrants. Duration is constant. Character is described as pressure and " like I have a lot of gas trapped. " there was no alleviating factors. There was no aggravating factors. Patient reports associated abdominal swelling. 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 After the discharge she was taking pain medications and her condition started worsening after few days. She is in constant follow up with Dr Gann. Today in the emergency department WBCs 21.2, left shift neutrophils 85.5%, BUN 26, creatinine 3.1, GFR 17, lactic acid 8.0, no urinalysis has been collected or sent to lab, CT of abdomen and pelvis showed of free air in the abdomen which could be a suspected bowel perforation versus postsurgical changes, moderate ascites, fissure post surgical changes. Chest x-ray shows right pleural effusion. Additionally patient had a heart rate of 125, respirations 26, together with leukocytosis and lactic acidosis patient met clinical sepsis criteria additionally patient's blood pressure dropped to 85/50 mmHg requiring vasopressor support therefore meeting criteria for septic shock. Patient will be admitted to the intensive care unit. Emergency room physician spoke with patient's surgeon, Dr. Gann who requested patient be admitted under hospitalist service and she will follow this case along. 07/21/25 Patient was evaluated at the bedside. She was accompanied by her daughter. She is oriented to the time, place and person. She complained of abdominal pain in all the quadrants. She hasn't had bowel movement since Saturday and also is unable to pass flatus at this time. She has guarding, rigidity and tenderness all over the abdomen, showing the signs of peritonitis. She was seen by Dr Gann this morning and is planned to be taken to OR this afternoon. Dueñas catheter is in place, as she wasn't able to pass the urine. There is no fever, chills and any other signs of infection. REVIEW OF SYSTEMS CONSTITUTIONAL: No fever, chills, or night sweats. NEUROLOGICAL: Denies headache, sensory and motor deficit. CARDIOVASCULAR: Denies any exertional angina, dyspnea on exertion, palpitations. PULMONARY: Denies any shortness of breath, cough, phlegm/sputum, hemoptysis, pleuritic chest pain. GASTROINTESTINAL: Patient complains of diffuse abdominal pain and bloating. Denies nausea, vomiting. GENITOURINARY: Denies frequency, urgency, nocturia, hematuria or incontinence. PHYSICAL EXAM GENERAL APPEARANCE: The patient is alert, awake and oriented and bedbound. NEUROLOGICAL: No sensory and motor deficits. CHEST: Normal chest expansion. LUNGS: Normal Vesicular breath sound. Absence of any rales, rhonchi or any wheezing. CARDIOVASCULAR: Regular. S1 and S2 normal. No appreciable rubs, murmurs or gallops. ABDOMEN: Abdomen is distended and tender. There is rebound, voluntary guarding and rigidity. GENITOURINARY: No suprapubic tenderness. No costovertebral angle tenderness. Vital Signs (last 8hr) Date Time Temp Pulse Resp B/P (MAP) Pulse Ox O2 Delivery O2 Flow Rate FiO2 07/21/25 06:00 100 14 104/82 (89) 96 07/21/25 05:45 91 16 99/68 (78) 92 07/21/25 05:30 93 15 107/62 (77) 92 07/21/25 05:15 94 15 108/72 (84) 92 07/21/25 05:00 95 21 109/36 (60) 94 07/21/25 04:45 94 19 104/64 (77) 93 07/21/25 04:30 91 19 112/64 (80) 94 07/21/25 04:15 93 24 124/81 (95) 93 07/21/25 04:00 94 Room Air* 0 21 07/21/25 04:00 97.7 92 17 109/67 (81) 94 21 07/21/25 03:45 97 16 111/66 (81) 92 07/21/25 03:30 93 18 116/64 (81) 94 07/21/25 03:15 96 17 98/62 (74) 94 07/21/25 03:00 97 14 110/68 (82) 93 21 07/21/25 02:45 96 16 110/67 (81) 92 07/21/25 02:30 105 15 113/72 (86) 93 07/21/25 02:15 96 16 106/64 (78) 94 07/21/25 02:00 93 Room Air* 0 21 07/21/25 02:00 98.1 92 19 106/62 (77) 21 07/21/25 01:45 95 22 103/48 (66) 07/21/25 01:30 94 17 102/67 (79) 07/21/25 01:21 98.2 94 20 109/56 94 Room Air* 0 21 LABS: Laboratory: Test 07/21/25 08:57 07/21/25 05:45 07/21/25 00:25 07/21/25 00:11 Range/Units Whole Blood Glucose 98 70-110 MG/DL White Blood Count 25.3 H 4.8-10.8 K/uL Red Blood Count 3.57 L 4.00-5.50 MIL/uL Hemoglobin 10.7 L 12.0-16.0 g/dL Hematocrit 33.0 L 36-48 % Mean Corpuscular Volume 92.4 79-99 fL Mean Corpuscular Hemoglobin 30.0 27.0-33.0 pg Mean Corpuscular Hemoglobin Concent 32.4 32.0-36.0 g/dL Red Cell Distribution Width 17.4 H 11.0-15.5 % Platelet Count 284 130-400 K/uL Mean Platelet Volume 10.1 7.5-10.5 fL Immature Granulocyte % (Auto) 1.7 H 0-1 % Neutrophils (%) (Auto) 86.5 H 40.0-77.0 % Lymphocytes (%) (Auto) 3.7 L 21.0-51.0 % Monocytes (%) (Auto) 7.5 3.0-13.0 % Eosinophils (%) (Auto) 0.0 0.0-8.0 % Basophils (%) (Auto) 0.6 0.0-5.0 % Neutrophils # (Auto) 21.9 H 1.8-7.7 K/uL Lymphocytes # (Auto) 1.0 1.0-4.8 K/uL Monocytes # (Auto) 1.9 H 0.1-1.0 K/uL Eosinophils # (Auto) 0.01 0.00-0.70 K/uL Basophils # (Auto) 0.14 0.00-0.20 K/uL Absolute Immature Granulocyte (auto 0.43 0-1 K/uL Nucleated Red Blood Cells 0.1 0.0-0.19 % Prothrombin Time 15.6 H 9.6-11.6 SEC Prothromb Time International Ratio 1.54 H 0.85-1.15 Activated Partial Thromboplast Time 37.0 H 26.3-35.5 SEC Sodium Level 133 L 136-145 mmol/L Potassium Level 4.4 3.5-5.1 mmol/L Chloride Level 100 L 101-111 mmol/L Carbon Dioxide Level 18 L 21-32 mmol/L Blood Urea Nitrogen 28 H 7-18 mg/dL Creatinine 2.0 H 0.5-1.0 mg/dL Glomerular Filtration Rate Calc 29 >90 mL/min Random Glucose 96 70-105 mg/dL Lactic Acid Level 3.4 H 0.8-2.5 mmol/L Total Calcium 7.7 L 8.5-10.1 mg/dL Phosphorus Level 4.8 2.5-4.9 mg/dL Magnesium Level 1.60 L 1.80-2.40 mg/dL Ammonia 40 H 11-32 umol/L Procalcitonin 10.32 H 0.05-0.5 ng/mL Urine Color YELLOW YELLOW Urine Appearance CLOUDY H CLEAR Urine pH 5.5 5.0-8.0 Urine Specific [place] >1.050 1.001-1.031 Urine Protein 30 H NEGATIVE mg/dL Urine Glucose (UA) NEGATIVE NEGATIVE mg/dL Urine Ketones NEGATIVE NEGATIVE mg/dL Urine Occult Blood +- (TRACE) H NEGATIVE Urine Nitrate NEGATIVE NEGATIVE Urine Bilirubin NEGATIVE NEGATIVE mg/dL Urine Urobilinogen 0.2 0.2-1.0 mg/dL Urine Leukocyte Esterase NEGATIVE NEGATIVE Regino/uL Urine RBC 11-25 H 0-1 /HPF Urine WBC 26-50 H 0-1 /HPF Urine Squamous Epithelial Cells Few 0-2 /HPF Urine Bacteria RARE None Seen /HPF Urine Random Creatinine 132.17 30-135 mg/dL Urine Random Sodium < 13 L 40-220 mmol/l SARS-CoV-2 Antigen (Rapid) PRESUMPTIVE NEGATIVE NEGATIVE Test 07/20/25 18:46 Range/Units White Cell Morphology Comment See comments Hemoglobin A1c 5.5 4.0-6.0 % Estimated Average Glucose (eAG) 111 70-126 mg/dL Troponin I High Sensitivity 11 4-50 ng/L B-Type Natriuretic Peptide 68 0-100 pg/mL Lipase 11 L 16-77 U/L Current Medications Medications (Trade) Dose Ordered Sig/Gregory Route PRN Reason Start Time Stop Time Status Last Admin Dose Admin Acetaminophen (TYLenol 650MG SUPPOSITORY) 650 mg Q6H PRN RC MILD PAIN (1-3) 07/21/25 00:00 08/20/25 00:00 Insulin Human Regular (humuLIN R 100 UNIT/ML 3ML) INSULIN SLIDING SCAL... ACHS SQ 07/21/25 07:30 08/20/25 07:29 Lactated Ringer's 1,000 ml @ 75 mls/hr [id number] IV 07/21/25 00:00 08/20/25 00:00 07/21/25 02:57 75 MLS/HR Magnesium Sulfate 50 ml @ 0 mls/hr PROTOCOL PRN IV MAGNESIUM PROTOCOL 07/21/25 07:00 08/20/25 06:59 Morphine Sulfate (morPHINE 2MG SYG) 2 mg Q4H PRN IVP SEVERE PAIN (7-10) 07/21/25 00:30 07/28/25 00:29 07/21/25 04:46 2 MG Norepinephrine 250 ml @ 0 mls/hr PROTOCOL IV 07/20/25 23:30 08/19/25 23:29 07/20/25 23:55 26 MLS/HR Ondansetron HCl (zoFRAN 4MG INJ) 4 mg Q6H PRN IV NAUSEA/VOMITING 07/21/25 00:00 08/20/25 00:00 Pantoprazole Sodium (PROTonix 40MG INJ) 40 mg DAILY IV 07/21/25 09:00 08/20/25 08:59 07/21/25 09:00 40 MG Piperacillin Sod/ Tazobactam Sod 50 ml @ 200 mls/hr ONCE STAT IVPB 07/20/25 19:15 07/20/25 19:29 DC 07/20/25 20:32 200 MLS/HR Piperacillin Sod/ Tazobactam Sod (Zosyn 3.375gm+NS 50ml) 3.375 gm Q12H IV 07/21/25 00:00 07/31/25 00:00 07/21/25 02:56 3.375 GM Vancomycin HCl (Vancomycin 1g/ 250ml Kit) 1 gm ONCE STAT IV 07/20/25 21:23 07/20/25 21:26 DC 07/20/25 22:06 1 GM Vasopressin 20 units/Sodium Chloride 100 ml @ 0 mls/hr PROTOCOL IV 07/21/25 00:30 08/20/25 00:29 07/21/25 00:10 9 MLS/HR DIAGNOSTICS / RADIOLOGY: [facility] [address] [place] [address] [id number] IMAGING REPORT Signed PATIENT: DALLAS BUCHANAN MR#: [id number] : 1970 SEX: F AGE: 55 LOCATION: 2BH ORDER STATUS: ADM IN REPORT#: [id number] SERVICE REASON: PICC LINE ORDERING PHYSICIAN: HEATHER LEACH APRN PROCEDURE: CXR1VW - CHEST 1VW EXAM: CR Chest, single view. CLINICAL HISTORY: PICC line COMPARISON: Prior same day chest radiograph. FINDINGS: Right-sided PICC catheter with tip in the cavoatrial junction. Subsegmental atelectasis in the right lower lobe. No evidence of pleural effusion or pneumothorax. The cardiomediastinal silhouette is within normal limits. No acute osseous abnormality. IMPRESSION: Right-sided PICC catheter with tip in the cavoatrial junction. Subsegmental atelectasis in the right lower lobe. No evidence of pleural effusion or pneumothorax. Compared to the prior study, there is interval placement of the right-sided PICC line and interval resolution of the subsegmental atelectasis in the left lower lobe. /[place] DICTATED BY: ELDON MILLER Jr., MD DATE: 07/21/25816 ELECTRONICALLY SIGNED BY: ELDON MILLER Jr., MD DATE: 07/21/25816 [facility] [address] [place] [address] [id number] IMAGING REPORT Addendum PATIENT: DALLAS BUCHANAN MR#: [id number] : 1970 SEX: F AGE: 55 LOCATION: EDH ORDER 14 STATUS: REG ER REPORT#: [id number] SERVICE 12 REASON: Abdominal Pain ORDERING PHYSICIAN: ALHAJI SHINE NP PROCEDURE: ABD PEL W - CT ABDOMEN/PELVIS W/CONTRAST ADDENDUM REPORT ADDENDUM: Results were shared by telephone at 23:23 pm on 07-20-2025 and acknowledged by Pt nurse Ms. SHIN BOYKIN. /[place] EXAM: CT Abdomen and Pelvis with Intravenous Contrast CLINICAL HISTORY: 55-year-old female with abdominal pain. TECHNIQUE: Axial computed tomography images of the abdomen and pelvis with intravenous contrast. Dose reduction technique was used including one or more of the following: automated exposure control, adjustment of mA and kV according to patient size, and/or iterative reconstruction. CONTRAST: Omnipaque 350, 75 mL COMPARISON: None provided. FINDINGS: LUNG BASES: Atelectasis and scarring at the lung bases. LIVER: Unremarkable. GALLBLADDER AND BILE DUCTS: Tiny gallstone seen. PANCREAS: Unremarkable. SPLEEN: Unremarkable. ADRENAL GLANDS: Unremarkable. KIDNEYS, URETERS, AND BLADDER: Dueñas catheter seen in the bladder lumen. No hydronephrosis or nephrolithiasis. No ureteral calculi. STOMACH AND BOWEL: Edema or loops of small bowel suggesting moderate small bowel enteritis. Free air in the upper abdomen is seen, suggesting perforated bowel. No obstruction. APPENDIX: No CT evidence for appendicitis. PERITONEUM: Moderate ascites in the abdomen and pelvis. No free air under the diaphragm. LYMPH NODES: No lymphadenopathy. REPRODUCTIVE: Unremarkable as visualized. VASCULATURE: No aortic aneurysm. ABDOMINAL WALL AND SOFT TISSUES: There is air in the subcutaneous soft tissue seen anteriorly, suggesting recent postsurgical changes; please correlate with surgical history. BONES: No fracture or suspicious osseous abnormality. IMPRESSION: 1. Moderate small bowel enteritis with free air in the upper abdomen, suggesting perforated bowel versus post surgical changes. No obstruction. 2. Moderate ascites in the abdomen and pelvis. 3. Air in the subcutaneous soft tissue anteriorly, suggesting recent postsurgical changes; please correlate with surgical history. /[place] DICTATED BY: EDWIGE LEDESMA MD DATE: 07/20/252336 ELECTRONICALLY SIGNED BY: DATE: EXAM: CT Abdomen and Pelvis with Intravenous Contrast CLINICAL HISTORY: 55-year-old female with abdominal pain. TECHNIQUE: Axial computed tomography images of the abdomen and pelvis with intravenous contrast. Dose reduction technique was used including one or more of the following: automated exposure control, adjustment of mA and kV according to patient size, and/or iterative reconstruction. CONTRAST: Omnipaque 350, 75 mL COMPARISON: None provided. FINDINGS: LUNG BASES: Atelectasis and scarring at the lung bases. LIVER: Unremarkable. GALLBLADDER AND BILE DUCTS: Tiny gallstone seen. PANCREAS: Unremarkable. SPLEEN: Unremarkable. ADRENAL GLANDS: Unremarkable. KIDNEYS, URETERS, AND BLADDER: Dueñas catheter seen in the bladder lumen. No hydronephrosis or nephrolithiasis. No ureteral calculi. STOMACH AND BOWEL: Edema or loops of small bowel suggesting moderate small bowel enteritis. Free air in the upper abdomen is seen, suggesting perforated bowel. No obstruction. APPENDIX: No CT evidence for appendicitis. PERITONEUM: Moderate ascites in the abdomen and pelvis. No free air under the diaphragm. LYMPH NODES: No lymphadenopathy. REPRODUCTIVE: Unremarkable as visualized. VASCULATURE: No aortic aneurysm. ABDOMINAL WALL AND SOFT TISSUES: There is air in the subcutaneous soft tissue seen anteriorly, suggesting recent postsurgical changes; please correlate with surgical history. BONES: No fracture or suspicious osseous abnormality. IMPRESSION: 1. Moderate small bowel enteritis with free air in the upper abdomen, suggesting perforated bowel versus post surgical changes. No obstruction. 2. Moderate ascites in the abdomen and pelvis. 3. Air in the subcutaneous soft tissue anteriorly, suggesting recent postsurgical changes; please correlate with surgical history. /[place] DICTATED BY: EDWIGE LEDESMA MD DATE: 07/20/252317 ELECTRONICALLY SIGNED BY: EDWIGE LEDESMA MD DATE: 07/20/252317 ASSESSMENT: Suspected Bowel Perforation POA Robotic takedown of splenic flexure mobilization, robotic takedown of colovesical fistula with sigmoid colectomy and end-to-end anastomosis Diabetes Mellitus Type 2 POA Acute Kidney Injury POA Septic Shock POA Cirrhosis of liver POA Oesophageal Varices PLAN: Suspected Bowel Perforation - Patient had repair of colo vesicular fistula with sigmoid colon resection and anastomosis on 07/09/25. - CT abdominal pelvis w/contrast showed Free air in the upper abdomen is seen, suggesting perforated bowel vs post surgical changes. No obstruction. - As per Dr Gann patient is planned to be taken to OR this afternoon for further assessment and management. - Patient had signs of Peritonitis like guarding, rigidity and the tenderness, post surgery. - She has bloating and abdominal distension. Septic Shock - Her WBC during the presentation was 21.2 and today its 25.3. 07/21/25 - Blood pressure initially 85/50, Pulse 125, Temperature 98.4. 07/20/25 - Lactic acid similarly was 8.0 and today it trended down to 3.4. 07/21/25 - Procalcitonin level is 10.32. - She was given Ringer's Lactate and Vasopressin along with Norepinephrine on 07/20/25. Acute Kidney Injury - FeNA is 0.1 %, secondary to dehydration and NSAIDs overuse. - Creatinine is trending down from 3.1 to 2.0. 07/21/25 - She received Ringers Lactate. -Urine sodium is < 13 and urine creatinine is 132.17. -Avoid nephrotoxic agents, eg. NSAIDS. -Weight patient daily. -Monitor intake and output. Supportive measures -Maintain IV fluids, correct electrolytes -Serial abdominal exams -Station Gateman on avoidance of NSAIDS and other related triggers. -Monitor Vitals and perform morning labs regularly ATTESTATION BY PHYSICIAN I have seen and examined the patient. I reviewed the documentation, medical decision making, and treatment plan as noted by the mid-level provider above. I agree with the findings and plan of care. Miguel Conley MD PREET CARR MD Jul 21, 2025 09:29
[2025-07-21] MEDS: FAMOTIDINE 20MG VIAL IV ONE (09:42)
[2025-07-21] MEDS: SUGAMMADEX SODIUM 200 MG/2 ML VIAL IV ONE (09:43)
[2025-07-21] MEDS ORDERED: ALBUMIN (HUMAN) 5% 500 ML IV ONE (09:45)
[2025-07-21] MEDS ORDERED: LIDOCAINE PF 100MG/5ML (2%) SYRINGE 5ML ONE (09:52)
[2025-07-21] MEDS ORDERED: SUCCINYLCHOLINE CHLORIDE 20 MG/ML 10 ML VIAL ONE (09:53)
[2025-07-21] MEDS ORDERED: GLYCOPYRROLATE 0.2 MG/ML 5 ML VIAL ONE (09:53)
[2025-07-21] MEDS ORDERED: NEOSTIGMINE METHYLSULFATE 1MG/ML IV ONE (09:54)
[2025-07-21] MEDS ORDERED: MIDAZOLAM HCL 1 MG/ML 2ML VIAL ONE (10:05)
[2025-07-21] MEDS: INDOCYANINE GREEN 25 MG VIAL IJ ONE (10:49)
--- NOTE | 2025-07-21 11:35 | NUR ---
PATIENT TAKEN TO OR AT THIS TIME
--- NOTE | 2025-07-21 11:50 | CONS ---
[facility] CONSULTATION NOTE Date Patient Seen: Jul 21, 2025 Time of Visit: 11:44 Supervising Physician: Dr Cecilio Mcgrath Reason for Consultation: ICU medical management Primary Care Physician: [ ] Outpatient Specialists: [ ] Inpatient Consults: General surgery PROBLEM LIST: Suspected bowel perforation Septic shock Right pleural effusion CYNTHIA versus CKD Diabetes mellitius type2 Liver cirrhosis w Ascites HPI: 55-year-old female with a history of a recent robotic sigmoid colectomy secondary to a colovesicular fistula presented to the emergency department yesterday reporting severe abdominal pain. Patient found to have an elevated white count, CT of the abdomen revealed a possible bowel perforation. Patient hypotensive started on vaso and levo along with antibiotics of Zosyn, patient's lactic was 4.7. Admitted to the ICU with surgical consultation. Patient seen and examined this morning in the ICU. Comfortable, on room air alert and oriented and no fevers. White count improving and lactic is down to 3.4. She has an elevated procalcitonin, surgical plan is to take the patient back to the OR. PAST MEDICAL HX: see above PAST SURGICAL HX: noncontributory SOCIAL HISTORY: No tobacco, ETOH, or illicit drug use Coded Allergies: aspirin (Unverified Allergy, Unknown, 07/02/25) bismuth subsalicylate (Unverified Allergy, Unknown, 07/02/25) pork derived (porcine) (Unverified Allergy, Unknown, 07/02/25) Uncoded Allergies: BISMUTH (Allergy, Unknown, 07/02/25) REVIEW OF SYSTEMS: 12 point ROS reviewed with patient. Pertinent positives mentioned above. Otherwise negative. PHYSICAL EXAM: GENERAL: alert, weak, awake oriented x 3 HEENT: EOMI, Sclera non icteric, moist mucosa NECK: Supple, no JVD, trachea midline LUNGS: Clear breath sounds bilaterally. No wheezes HEART: Regular rate and rhythm. Normal S1 and S2, without murmurs ABD: Abdomen soft, nontender. Bowel sounds present EXT: No clubbing cyanosis or edema NEURO: Alert and oriented to person, follows commands Vital Signs (last 8hr) Date Time Temp Pulse Resp B/P (MAP) Pulse Ox O2 Delivery O2 Flow Rate FiO2 07/21/25 11:15 97 14 100/58 (72) 95 07/21/25 11:00 94 16 103/62 (76) 95 07/21/25 10:56 87/57 07/21/25 10:45 94 20 107/57 (74) 100 07/21/25 10:30 93 14 87/57 (67) 96 07/21/25 10:15 97 12 100/58 (72) 95 07/21/25 10:00 89 19 92/65 (74) 90 07/21/25 09:45 89 16 95/74 (81) 93 07/21/25 09:30 116 29 94/35 (54) 99 07/21/25 09:15 111 28 139/68 (91) 96 07/21/25 09:00 89 23 101/67 (78) 95 07/21/25 08:45 90 29 114/63 (80) 94 07/21/25 08:30 90 17 100/49 (66) 94 07/21/25 08:15 90 29 116/90 (99) 73 07/21/25 08:00 97.9 07/21/25 08:00 95 Room Air* 0 21 07/21/25 08:00 88 13 120/73 (89) 86 07/21/25 07:45 91 15 101/68 (79) 95 07/21/25 07:30 86 19 95 07/21/25 07:15 90 21 112/60 (77) 94 07/21/25 07:00 89 15 103/66 (78) 95 07/21/25 06:00 100 14 104/82 (89) 96 07/21/25 05:45 91 16 99/68 (78) 92 07/21/25 05:30 93 15 107/62 (77) 92 07/21/25 05:15 94 15 108/72 (84) 92 07/21/25 05:00 95 21 109/36 (60) 94 07/21/25 04:45 94 19 104/64 (77) 93 07/21/25 04:30 91 19 112/64 (80) 94 07/21/25 04:15 93 24 124/81 (95) 93 07/21/25 04:00 94 Room Air* 0 21 07/21/25 04:00 97.7 92 17 109/67 (81) 94 21 07/21/25 03:45 97 16 111/66 (81) 92 LABS: Hematology Labs: Test 07/21/25 05:45 9/16/25 18:46 Range/Units White Blood Count 25.3 H 4.8-10.8 K/uL Red Blood Count 3.57 L 4.00-5.50 MIL/uL Hemoglobin 10.7 L 12.0-16.0 g/dL Hematocrit 33.0 L 36-48 % Mean Corpuscular Volume 92.4 79-99 fL Mean Corpuscular Hemoglobin 30.0 27.0-33.0 pg Mean Corpuscular Hemoglobin Concent 32.4 32.0-36.0 g/dL Red Cell Distribution Width 17.4 H 11.0-15.5 % Platelet Count 284 130-400 K/uL Mean Platelet Volume 10.1 7.5-10.5 fL Immature Granulocyte % (Auto) 1.7 H 0-1 % Neutrophils (%) (Auto) 86.5 H 40.0-77.0 % Lymphocytes (%) (Auto) 3.7 L 21.0-51.0 % Monocytes (%) (Auto) 7.5 3.0-13.0 % Eosinophils (%) (Auto) 0.0 0.0-8.0 % Basophils (%) (Auto) 0.6 0.0-5.0 % Neutrophils # (Auto) 21.9 H 1.8-7.7 K/uL Lymphocytes # (Auto) 1.0 1.0-4.8 K/uL Monocytes # (Auto) 1.9 H 0.1-1.0 K/uL Eosinophils # (Auto) 0.01 0.00-0.70 K/uL Basophils # (Auto) 0.14 0.00-0.20 K/uL Absolute Immature Granulocyte (auto 0.43 0-1 K/uL Nucleated Red Blood Cells 0.1 0.0-0.19 % White Cell Morphology Comment See comments Chemistry Labs: Test 07/21/25 08:57 07/21/25 05:45 07/21/25 00:25 07/20/25 18:46 Range/Units Whole Blood Glucose 98 70-110 MG/DL Sodium Level 133 L 136-145 mmol/L Potassium Level 4.4 3.5-5.1 mmol/L Chloride Level 100 L 101-111 mmol/L Carbon Dioxide Level 18 L 21-32 mmol/L Blood Urea Nitrogen 28 H 7-18 mg/dL Creatinine 2.0 H 0.5-1.0 mg/dL Glomerular Filtration Rate Calc 29 >90 mL/min Random Glucose 96 70-105 mg/dL Lactic Acid Level 3.4 H 0.8-2.5 mmol/L Total Calcium 7.7 L 8.5-10.1 mg/dL Phosphorus Level 4.8 2.5-4.9 mg/dL Magnesium Level 1.60 L 1.80-2.40 mg/dL Ammonia 40 H 11-32 umol/L Procalcitonin 10.32 H 0.05-0.5 ng/mL Hemoglobin A1c 5.5 4.0-6.0 % Estimated Average Glucose (eAG) 111 70-126 mg/dL Troponin I High Sensitivity 11 4-50 ng/L B-Type Natriuretic Peptide 68 0-100 pg/mL Lipase 11 L 16-77 U/L Coagulation Labs: Test 07/21/25 05:45 Range/Units Prothrombin Time 15.6 H 9.6-11.6 SEC Prothromb Time International Ratio 1.54 H 0.85-1.15 Activated Partial Thromboplast Time 37.0 H 26.3-35.5 SEC DIAGNOSTICS / RADIOLOGY RESULTS: [ ] PLAN Antibiotics, we are following cultures Weaning pressors Follow surgical recs NEURO: Minimize central acting medications as possible. Fall Precautions. Well lighted room through the day and minimize interruptions through the night to prevent acute delirium. PULMONARY: Supplemental 02 as needed Titrate Fio2 to keep Spo2 > or = 90% DuoNebs and CPT as needed IS hourly while awake for pulmonary hygiene Out of bed to chair as tolerated VAP Bundle Vent/BIPAP Settings: [ ] Driving pressure: [ ] P Plat: [ ] Static C: [ ] Static R: [ ] P/F Ratio: [ ] CARDIOVASCULAR: Follow hemodynamics. Titrate vasopressor to keep MAP >65 or systolic blood pressure >95mmHg DIPS: [ ] LINES: [ ] GI & NUTRITION: Continue nutritional support Aspirations precautions Prokinetic agents and laxatives as needed KIDNEYS & ELECTROLYTES: Strict monitoring of intake and output Daily weights Avoid nephrotoxic agents Monitor electrolytes and replace as needed Goal urine output of 30mL/hr or 0.5mL/kg/hr Urine output: [ ] Fluid Balance: [ ] ENDOCRINE: Maintain blood glucose between 100-180 at all times. Insulin sliding scale for blood glucose management INFECTIOUS DISEASE: Trend temperature. Hull-culture if febrile. Micro: [ ] Antibiotics: [ ] HEMATOLOGY & COAGULATION: Monitor H&H. Keep Hgb > 7 Transfuse 1 unit of PRBC for Hgb < 7 Transfuse 1 pack of platelets of platelets < 20, 000 Watch for any signs and symptoms of bleeding SKIN: Pressure ulcer prevention per facility protocol Rehab: PT/OT Prophylaxis: GI and DVT Code Status: Full Resuscitation Other: Total critical care time spent greater than 40 minutes, this excludes any procedures performed or any time spent in educational or teaching. Case was discussed and seen with my supervising physician. The above plan was formulated and agreed upon. JARED BASURTO Jul 21, 2025 11:50
[2025-07-21 12:06] LABS: ABG BASE EXCESS -11.8 mmol/L (-2.0-3.0); ABG HCO3 15.0 mmol/L (21.0-28.0); ABG OXYGEN SATURATION 99.7 % (94.0-98.0); ABG PCO2 37 mmHg (32-45); ABG PH 7.227 (7.350-7.450); CARBON MONOXIDE 0 % (0.5-1.5); DEVICE COMMENT ALINE,RAUL; PO2, ARTERIAL BG 271.0 mmHg (83.0-108.0); TEMPERATURE, CELSIUS BG 27.0 CELSIUS (35.5-37.0); VENT MODE, BG ANT VENT (ROOM AIR)
--- NOTE | 2025-07-21 12:11 | CONS ---
GENERAL SURGERY CONSULTATION NOTE DATE OF CONSULTATION: Jul 21, 2025 TIME OF CONSULTATION: 12:06 CONSULTING SERVICE: Luz Rodriguez MD REQUESTING PHYSICAIN: [ ] REASON FOR CONSULTATION: [ ] HISTORY OF PRESENT ILLNESS: 55-year-old female 12 days postop after robotic sigmoid resection and takedown of colovesical fistula. Had been doing well until over the weekend when she started with worsening abdominal pain mostly in the upper abdomen with bloating she had been having bowel movements. But it started having nausea. We saw her Saturday in the office she was still having urine output. And we recommended antibiotics and medicine however by yesterday she was feeling worse with no urine output we centered to the ER was found to be in acute kidney injury and with free air and feet free fluid within the abdomen on the CT scan. Patient denies any fevers or chills. Has been hydrated and is in the ICU no pressors on board. Patient alert and awake answering all questions PAST MEDICAL HISTORY: Hypertension diabetes, recurrent UTIs. History of cirrhosis. History of esophageal varices PAST SURGICAL HISTORY: Robotic sigmoid colectomy as above Current Medications Medications (Trade) Dose Ordered Sig/Gregory Route Start Time Stop Time Status Last Admin Dose Admin Insulin Human Regular (humuLIN R 100 UNIT/ML 3ML) INSULIN SLIDING SCAL... ACHS SQ 07/21/25 07:30 08/20/25 07:29 Lactated Ringer's 1,000 ml @ 75 mls/hr [id number] IV 07/21/25 00:00 08/20/25 00:00 07/21/25 02:57 75 MLS/HR Norepinephrine 250 ml @ 0 mls/hr PROTOCOL IV 07/20/25 23:30 08/19/25 23:29 07/21/25 10:56 18.45 MLS/HR Pantoprazole Sodium (PROTonix 40MG INJ) 40 mg DAILY IV 07/21/25 09:00 08/20/25 08:59 07/21/25 09:00 40 MG Piperacillin Sod/ Tazobactam Sod 50 ml @ 200 mls/hr ONCE STAT IVPB 07/20/25 19:15 07/20/25 19:29 DC 07/20/25 20:32 200 MLS/HR Piperacillin Sod/ Tazobactam Sod (Zosyn 3.375gm+NS 50ml) 3.375 gm Q12H IV 07/21/25 00:00 07/31/25 00:00 07/21/25 02:56 3.375 GM Vancomycin HCl (Vancomycin 1g/ 250ml Kit) 1 gm ONCE STAT IV 07/20/25 21:23 07/20/25 21:26 DC 07/20/25 22:06 1 GM Vasopressin 20 units/Sodium Chloride 100 ml @ 0 mls/hr PROTOCOL IV 07/21/25 00:30 08/20/25 00:29 07/21/25 00:10 9 MLS/HR Allergies: Coded Allergies: aspirin (Unverified Allergy, Unknown, 07/02/25) bismuth subsalicylate (Unverified Allergy, Unknown, 07/02/25) pork derived (porcine) (Unverified Allergy, Unknown, 07/02/25) Uncoded Allergies: BISMUTH (Allergy, Unknown, 07/02/25) 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 PHYSICAL EXAMINATION: GENERAL: [Patient is lying comfortably in bed, not in any obvious distress.] HEAD: [Normal with no signs of head trauma.] NECK: Trachea midline LUNGS: [No wheezing HEART: [Regular rate and rhythm. ABD: Distended, positive tenderness throughout the abdomen with a peritonitis in the upper abdomen. No rigidity. EXT: No swelling SKIN: [ No rashes or lesions.] NEURO: [ Awake Alert and oriented x3.] Vital Signs (last 8hr) Date Time Temp Pulse Resp B/P (MAP) Pulse Ox O2 Delivery O2 Flow Rate FiO2 07/21/25 11:15 97 14 100/58 (72) 95 07/21/25 11:00 94 16 103/62 (76) 95 07/21/25 10:56 87/57 07/21/25 10:45 94 20 107/57 (74) 100 07/21/25 10:30 93 14 87/57 (67) 96 07/21/25 10:15 97 12 100/58 (72) 95 07/21/25 10:00 89 19 92/65 (74) 90 07/21/25 09:45 89 16 95/74 (81) 93 07/21/25 09:30 116 29 94/35 (54) 99 07/21/25 09:15 111 28 139/68 (91) 96 07/21/25 09:00 89 23 101/67 (78) 95 07/21/25 08:45 90 29 114/63 (80) 94 07/21/25 08:30 90 17 100/49 (66) 94 07/21/25 08:15 90 29 116/90 (99) 73 07/21/25 08:00 97.9 07/21/25 08:00 95 Room Air* 0 21 07/21/25 08:00 88 13 120/73 (89) 86 07/21/25 07:45 91 15 101/68 (79) 95 07/21/25 07:30 86 19 95 07/21/25 07:15 90 21 112/60 (77) 94 07/21/25 07:00 89 15 103/66 (78) 95 07/21/25 06:00 100 14 104/82 (89) 96 07/21/25 05:45 91 16 99/68 (78) 92 07/21/25 05:30 93 15 107/62 (77) 92 07/21/25 05:15 94 15 108/72 (84) 92 07/21/25 05:00 95 21 109/36 (60) 94 07/21/25 04:45 94 19 104/64 (77) 93 07/21/25 04:30 91 19 112/64 (80) 94 07/21/25 04:15 93 24 124/81 (95) 93 LABORATORY: [ ] Hematology Labs: Test 07/21/25 05:45 07/20/25 18:46 Range/Units White Blood Count 25.3 H 4.8-10.8 K/uL Red Blood Count 3.57 L 4.00-5.50 MIL/uL Hemoglobin 10.7 L 12.0-16.0 g/dL Hematocrit 33.0 L 36-48 % Mean Corpuscular Volume 92.4 79-99 fL Mean Corpuscular Hemoglobin 30.0 27.0-33.0 pg Mean Corpuscular Hemoglobin Concent 32.4 32.0-36.0 g/dL Red Cell Distribution Width 17.4 H 11.0-15.5 % Platelet Count 284 130-400 K/uL Mean Platelet Volume 10.1 7.5-10.5 fL Immature Granulocyte % (Auto) 1.7 H 0-1 % Neutrophils (%) (Auto) 86.5 H 40.0-77.0 % Lymphocytes (%) (Auto) 3.7 L 21.0-51.0 % Monocytes (%) (Auto) 7.5 3.0-13.0 % Eosinophils (%) (Auto) 0.0 0.0-8.0 % Basophils (%) (Auto) 0.6 0.0-5.0 % Neutrophils # (Auto) 21.9 H 1.8-7.7 K/uL Lymphocytes # (Auto) 1.0 1.0-4.8 K/uL Monocytes # (Auto) 1.9 H 0.1-1.0 K/uL Eosinophils # (Auto) 0.01 0.00-0.70 K/uL Basophils # (Auto) 0.14 0.00-0.20 K/uL Absolute Immature Granulocyte (auto 0.43 0-1 K/uL Nucleated Red Blood Cells 0.1 0.0-0.19 % White Cell Morphology Comment See comments Chemistry Labs: Test 07/21/25 08:57 07/21/25 05:45 07/21/25 00:25 07/20/25 18:46 Range/Units Whole Blood Glucose 98 70-110 MG/DL Sodium Level 133 L 136-145 mmol/L Potassium Level 4.4 3.5-5.1 mmol/L Chloride Level 100 L 101-111 mmol/L Carbon Dioxide Level 18 L 21-32 mmol/L Blood Urea Nitrogen 28 H 7-18 mg/dL Creatinine 2.0 H 0.5-1.0 mg/dL Glomerular Filtration Rate Calc 29 >90 mL/min Random Glucose 96 70-105 mg/dL Lactic Acid Level 3.4 H 0.8-2.5 mmol/L Total Calcium 7.7 L 8.5-10.1 mg/dL Phosphorus Level 4.8 2.5-4.9 mg/dL Magnesium Level 1.60 L 1.80-2.40 mg/dL Ammonia 40 H 11-32 umol/L Procalcitonin 10.32 H 0.05-0.5 ng/mL Hemoglobin A1c 5.5 4.0-6.0 % Estimated Average Glucose (eAG) 111 70-126 mg/dL Troponin I High Sensitivity 11 4-50 ng/L B-Type Natriuretic Peptide 68 0-100 pg/mL Lipase 11 L 16-77 U/L Coagulation Labs: Test 07/21/25 05:45 Range/Units Prothrombin Time 15.6 H 9.6-11.6 SEC Prothromb Time International Ratio 1.54 H 0.85-1.15 Activated Partial Thromboplast Time 37.0 H 26.3-35.5 SEC DIAGNOSTICS / RADIOLOGY: [Copy/Paste Echos/Imaging Report here] ASSESSMENT: Patient with a status post sigmoid resection that had been having bowel movements but has free air and fluid fluid in the abdomen. And a has a leukocytosis and acute kidney injury that is resolving. On my personal review of the CT scan I am concerned for maybe a gastric perforation. Since the areas mostly in the upper abdomen. But we can not rule out a perforation of the small intestine or the anastomosis. PLAN: Discussed with patient that we will plan for a laparoscopy. To evaluate the so urce of the free air and the fluid. And depending with the source what we might do. If the sources in the anastomosis we will do a diverting loop ileostomy. If the sources somewhere else we will repair that and place a drain. Discuss this with the patient and her daughter and they agreed to proceed. SUSAN JHAVERI MD Jul 21, 2025 12:10
[2025-07-21] MEDS ORDERED: SODIUM BICARB 50MEQ 50ML VIAL 200 ML ONE (12:19)
[2025-07-21] MEDS ORDERED: PHYTONADIONE 10 MG/1 ML AMP ONE (13:05)
--- NOTE | 2025-07-21 13:15 | OP ---
Operative Note: DATE OF PROCEDURE: 07/21/25 SURGEON: SUSAN JHAVERI MD MANUFACTURING TECH: [] ANESTHESIA: general ANESTHESIOLOGIST/WHEEL AND CASTER REPAIRER: : Bro FLOR PREOPERATIVE DIAGNOSIS: Free air POSTOPERATIVE DIAGNOSIS: Bilious peritonitis, 2 mm perforation of the colonic anastomosis SYNOPSIS: [] PROCEDURE: Diagnostic laparoscopy, abdominal washout, drain placement and diverting loop ileostomy creation ESTIMATED BLOOD LOSS: 5 cc INDICATIONS: Patient with a leukocytosis, acute kidney injury and free air with the acute abdomen suspected perforation. Devices left in place: CHRIS drain 10 Wallisian DESCRIPTION OF PROCEDURE: The patient is brought to the operating room placed on the operating table in a supine position. Once general endotracheal anesthesia was achieved patient's abdomen is prepped and draped in sterile fashion. I then proceeded to create a transverse incision in the left upper quadrant over top of the patient's previous 8 mm incision and under direct visualization with Optiview proceeded to place a 5 mm trocar. Entered the abdominal cavity and obtained pneumoperitoneum. There was a rebecca bilious pe ritonitis. We proceeded to suck out all the bile we suctioned out 2500 cc. I placed another 5 mm trocar at the epigastrium at another previous 8 mm trocar site. Another 5 mm trocar at the left flank and one in the right flank. We evaluated the stomach and there was no signs of perforation and it was very distended. We then proceeded to turn our attention to the patient's criss stomosis. It seemed to be very well healed on compression of the anastomosis we saw small area of bubbling there was a 2 mm dehiscence of the anastomosis with perforation. With minimal spillage of rebecca stool. We then proceeded to irrigate with copious amounts of saline. We then proceeded to identify the cecum. And then found the terminal ileum and run back about 30 cm to find a loop of small bowel that was nice and free and able to come to the abdominal wall without any tension for a loop ileostomy and marked it with a Mellott. We then proceeded to introduce a 10 Wallisian flat drain into the pelvis and placed it near the axilla perforation brought it out through the left flank incision and removed the 5 mm trocar secured it to the skin with 2-0 nylon suture. In the right lower quadrant and I then created a circular incision over top of the rectus muscle just to the right of the midline. Dissected through the skin and subcutaneous tissue. I identified the anterior rectus sheath created a cruciate incision over top. Split the muscle and created a cruciate incision of the posterior rectus sheath. Brought up a loop of small bowel made sure was not twisted. It had good circulation once we brought it through the abdominal wall and then proceeded to mature it with a Heidi fashion with 3-0 Vicryl pop offs. Placed a bridge underneath. We then proceeded to close all the incisions with a 4-0 Monocryl in subcuticular fashion and Dermabond. Ostomy dressings are applied. All counts were correct x2 at the end of the procedure. Patient tolerated the procedure well. SUSAN JHAVERI MD Jul 21, 2025 13:15
[2025-07-21] MEDS ORDERED: SODIUM BICARB 50MEQ 50ML VIAL IV ONE (14:00)
[2025-07-21] MEDS ORDERED: SODIUM BICARB 8.4% 50ML SYRING 150 MEQ in 0.9%NACL 1000ML 1,000 ML IVP SCH (14:00)
--- NOTE | 2025-07-21 15:20 | CONS ---
NEPHROLOGY CONSULTATION NOTE Date/Time Patient Seen: Jul 21, 2025 1430 Reason for Consultation: Renal failure HISTORY OF PRESENT ILLNESS: This is a 55-year-old female with a past medical history of diabetes mellitus type 2, liver cirrhosis, esophageal varices. He presented to the emergency room with chief complain of abdominal pain. CT of the abdomen showed moderate small bowel enteritis with free air in the upper abdomen, suggesting perforated bowel versus post surgical changes. No obstruction. S/p diagnostic laparoscopy, abdominal washout, drain placement and diverting loop ileostomy creation with CHRIS drain 10 [place] on 07/21 She continues to require vasopressors to maintain blood pressure. She was noted to have elevated BUN/creatinine We are consulted for renal failure Renal function is improving Electrolytes are stable. She was seen in the ICU, in no acute distress No family at the bedside REVIEW OF SYSTEMS: GENERAL: Positive for abdominal pain and nausea NEUROLOGIC: Negative for any blurry vision, blind spots, double vision, facial asymmetry, dysphagia, dysarthria, hemiparesis, hemisensory deficits, vertigo, ataxia. HEENT: Negative for any head trauma, neck trauma, neck stiffness, photophobia, phonophobia, sinusitis, rhinitis. CARDIAC: Negative for any chest pain, dyspnea on exertion, paroxysmal nocturnal dyspnea, peripheral edema. PULMONARY: Negative for any shortness of breath, wheezing, COPD, or TB exposure. GASTROINTESTINAL: Negative for any abdominal pain, nausea, vomiting, bright red blood per rectum, melena. GENITOURINARY: Negative for any dysuria, hematuria, incontinence. INTEGUMENTARY: Negative for any rashes, cuts, insect bites. RHEUMATOLOGIC: Negative for any joint pains, photosensitive rashes, history of vasculitis or kidney problems. HEMATOLOGIC: Negative for any abnormal bruising, frequent infections or bl eeding. PAST MEDICAL HISTORY: diabetes mellitus type 2, liver cirrhosis, esophageal varices. PAST SURGICAL HISTORY: Right knee surgery, on 07/09/2025 repair of colo vesicular fistula with sigmoid colon resection and anastomosis. PAST SOCIAL HISTORY: Denies use of alcohol, tobacco or illicit drugs FAMILY HISTORY: Noncontributory PHYSICAL EXAM: GENERAL: Alert and oriented x 3. No acute distress. Well-nourished. EYES: EOMI. Anicteric. HENT: Moist mucous membranes. No scleral icterus. No cervical lymphadenopathy. LUNGS: Clear to auscultation bilaterally. No accessory muscle use. CARDIOVASCULAR: Regular rate and rhythm. No murmur. No JVD. ABDOMEN: Soft, non-tender and non-distended. No palpable masses. EXTREMITIES: No edema. Non-tender SKIN: No rashes or lesions. Warm. NEUROLOGIC: No focal neurological deficits. CN II-XII grossly intact, but not individually tested. PSYCHIATRIC: Cooperative. Appropriate mood and affect. MEDICATIONS: [ ] Current Medications Medications (Trade) Dose Ordered Sig/Gregory Route PRN Reason Start Time Stop Time Status Last Admin Dose Admin Acetaminophen (TYLenol 650MG SUPPOSITORY) 650 mg Q6H PRN RC MILD PAIN (1-3) 07/21/25 00:00 08/20/25 00:00 Fluconazole/ Sodium Chloride (DiFLUCan 200 MG/ NS 100 ML) 200 mg Q24H IVPB 07/21/25 21:00 08/20/25 20:59 Insulin Human Regular (humuLIN R 100 UNIT/ML 3ML) INSULIN SLIDING SCAL... ACHS SQ 07/21/25 07:30 08/20/25 07:29 Lactated Ringer's 1,000 ml @ 75 mls/hr [id number] IV 07/21/25 00:00 07/21/25 13:17 DC 07/21/25 02:57 75 MLS/HR Lactated Ringer's 1,000 ml @ 75 mls/hr [id number] IV 07/21/25 13:30 08/20/25 13:29 07/21/25 14:28 75 MLS/HR Magnesium Sulfate 50 ml @ 0 mls/hr PROTOCOL PRN IV MAGNESIUM PROTOCOL 07/21/25 07:00 08/20/25 06:59 Metronidazole/ Sodium Chloride (flaGYL) 500 mg Q8H IV 07/21/25 14:00 07/21/25 13:40 DC Morphine Sulfate (morPHINE 2MG SYG) 2 mg Q4H PRN IVP SEVERE PAIN (7-10) 07/21/25 00:30 07/21/25 13:18 DC 07/21/25 04:46 2 MG Morphine Sulfate (morPHINE 4MG SYG) 4 mg Q3H PRN IV SEVERE PAIN (7-10) 07/21/25 13:30 07/28/25 13:29 Norepinephrine 250 ml @ 0 mls/hr PROTOCOL IV 07/20/25 23:30 08/19/25 23:29 07/21/25 10:56 18.45 MLS/HR Ondansetron HCl (zoFRAN 4MG INJ) 4 mg Q4H PRN IVP NAUSEA 07/21/25 13:30 08/20/25 13:29 Ondansetron HCl (zoFRAN 4MG INJ) 4 mg Q6H PRN IV NAUSEA/VOMITING 07/21/25 00:00 07/21/25 13:18 DC Pantoprazole Sodium (PROTonix 40MG INJ) 40 mg DAILY IV 07/21/25 09:00 08/20/25 08:59 07/21/25 09:00 40 MG Piperacillin Sod/ Tazobactam Sod 50 ml @ 200 mls/hr ONCE STAT IVPB 07/20/25 19:15 07/20/25 19:29 DC 07/20/25 20:32 200 MLS/HR Piperacillin Sod/ Tazobactam Sod (Zosyn 3.375gm+NS 50ml) 3.375 gm Q12H IV 07/21/25 00:00 07/31/25 00:00 07/21/25 14:25 3.375 GM Sodium Bicarbonate 150 meq/Sodium Chloride 1,150 ml @ 0 mls/hr Q0M IVP 07/21/25 14:00 08/20/25 13:59 Vancomycin HCl (Vancomycin 1g/ 250ml Kit) 1 gm ONCE STAT IV 07/20/25 21:23 07/20/25 21:26 DC 07/20/25 22:06 1 GM Vasopressin 20 units/Sodium Chloride 100 ml @ 0 mls/hr PROTOCOL IV 07/21/25 00:30 08/20/25 00:29 07/21/25 00:10 9 MLS/HR Vital Signs (last 8hr) Date Time Temp Pulse Resp B/P (MAP) Pulse Ox O2 Delivery O2 Flow Rate FiO2 07/21/25 11:15 97 14 100/58 (72) 95 07/21/25 11:00 94 16 103/62 (76) 95 07/21/25 10:56 87/57 07/21/25 10:45 94 20 107/57 (74) 100 07/21/25 10:30 93 14 87/57 (67) 96 07/21/25 10:15 97 12 100/58 (72) 95 07/21/25 10:00 89 19 92/65 (74) 90 07/21/25 09:45 89 16 95/74 (81) 93 07/21/25 09:30 116 29 94/35 (54) 99 07/21/25 09:15 111 28 139/68 (91) 96 07/21/25 09:00 89 23 101/67 (78) 95 07/21/25 08:45 90 29 114/63 (80) 94 07/21/25 08:30 90 17 100/49 (66) 94 07/21/25 08:15 90 29 116/90 (99) 73 07/21/25 08:00 97.9 07/21/25 08:00 95 Room Air* 0 21 07/21/25 08:00 88 13 120/73 (89) 86 07/21/25 07:45 91 15 101/68 (79) 95 07/21/25 07:30 86 19 95 07/21/25 07:15 90 21 112/60 (77) 94 DIAGNOSTICS / RADIOLOGY: [place] [id number] [address] IMAGING REPORT Signed PATIENT: DALLAS BUCHANAN MR#: [id number] : 1970 SEX: F AGE: 55 LOCATION: 2BH ORDER STATUS: ADM IN REPORT#: [id number] SERVICE REASON: PICC LINE ORDERING PHYSICIAN: HEATHER LEACH APRN PROCEDURE: CXR1VW - CHEST 1VW EXAM: CR Chest, single view. CLINICAL HISTORY: PICC line COMPARISON: Prior same day chest radiograph. FINDINGS: Right-sided PICC catheter with tip in the cavoatrial junction. Subsegmental atelectasis in the right lower lobe. No evidence of pleural effusion or pneumothorax. The cardiomediastinal silhouette is within normal limits. No acute osseous abnormality. IMPRESSION: Right-sided PICC catheter with tip in the cavoatrial junction. Subsegmental atelectasis in the right lower lobe. No evidence of pleural effusion or pneumothorax. Compared to the prior study, there is interval placement of the right-sided PICC line and interval resolution of the subsegmental atelectasis in the left lower lobe. /[place] DICTATED BY: ELDON MILLER Jr., MD DATE: 07/21/25816 ELECTRONICALLY SIGNED BY: ELDON MILLER Jr., MD DATE: 07/21/25816 PATIENT: DALLAS BUCHANAN MR#: [id number] : 1970 SEX: F AGE: 55 LOCATION: [facility] ORDER 14 STATUS: REG ER [facility] REPORT#: [id number] SERVICE 12 REASON: CHEST PAIN/COUGH ORDERING PHYSICIAN: ALHAJI SHINE NP PROCEDURE: CXR1VW - CHEST 1VW EXAM: XR Chest, 1 View. CLINICAL HISTORY: 55 year old female with chest pain and cough. COMPARISON: None provided. FINDINGS: LUNGS: The lungs demonstrate evidence of atelectasis. PLEURAL SPACES: A small right pleural effusion is present. HEART: The heart size is normal. BONES: No acute osseous abnormality. IMPRESSION: 1. Small right pleural effusion and right lung base atelectasis. /[place] DICTATED BY: EDWIGE LEDESMA MD DATE: 07/20/252046 ELECTRONICALLY SIGNED BY: EDWIGE LEDESMA MD DATE: 07/20/252046 PATIENT: DALLAS BUCHANAN MR#: [id number] : 1970 SEX: F AGE: 55 LOCATION: [facility] ORDER 14 STATUS: REG ER REPORT#: [id number] SERVICE 12 REASON: Abdominal Pain ORDERING PHYSICIAN: ALHAJI SHINE NP PROCEDURE: ABD PEL W - CT ABDOMEN/PELVIS W/CONTRAST ADDENDUM REPORT ADDENDUM: Results were shared by telephone at 23:23 pm on 07-20-2025 and acknowledged by Pt nurse Ms. SHIN BOYKIN. /[place] EXAM: CT Abdomen and Pelvis with Intravenous Contrast CLINICAL HISTORY: 55-year-old female with abdominal pain. TECHNIQUE: Axial computed tomography images of the abdomen and pelvis with intravenous contrast. Dose reduction technique was used including one or more of the following: automated exposure control, adjustment of mA and kV according to patient size, and/or iterative reconstruction. CONTRAST: Omnipaque 350, 75 mL COMPARISON: None provided. FINDINGS: LUNG BASES: Atelectasis and scarring at the lung bases. LIVER: Unremarkable. GALLBLADDER AND BILE DUCTS: Tiny gallstone seen. PANCREAS: Unremarkable. SPLEEN: Unremarkable. ADRENAL GLANDS: Unremarkable. KIDNEYS, URETERS, AND BLADDER: Dueñas catheter seen in the bladder lumen. No hydronephrosis or nephrolithiasis. No ureteral calculi. STOMACH AND BOWEL: Edema or loops of small bowel suggesting moderate small bowel enteritis. Free air in the upper abdomen is seen, suggesting perforated bowel. No obstruction. APPENDIX: No CT evidence for appendicitis. PERITONEUM: Moderate ascites in the abdomen and pelvis. No free air under the diaphragm. LYMPH NODES: No lymphadenopathy. REPRODUCTIVE: Unremarkable as visualized. VASCULATURE: No aortic aneurysm. ABDOMINAL WALL AND SOFT TISSUES: There is air in the subcutaneous soft tissue seen anteriorly, suggesting recent postsurgical changes; please correlate with surgical history. BONES: No fracture or suspicious osseous abnormality. IMPRESSION: 1. Moderate small bowel enteritis with free air in the upper abdomen, suggesting perforated bowel versus post surgical changes. No obstruction. 2. Moderate ascites in the abdomen and pelvis. 3. Air in the subcutaneous soft tissue anteriorly, suggesting recent postsurgical changes; please correlate with surgical history. /[place] DICTATED BY: EDWIGE LEDESMA MD DATE: 07/20/25 1297 ELECTRONICALLY SIGNED BY: DATE: EXAM: CT Abdomen and Pelvis with Intravenous Contrast CLINICAL HISTORY: 55-year-old female with abdominal pain. TECHNIQUE: Axial computed tomography images of the abdomen and pelvis with intravenous contrast. Dose reduction technique was used including one or more of the following: automated exposure control, adjustment of mA and kV according to patient size, and/or iterative reconstruction. CONTRAST: Omnipaque 350, 75 mL COMPARISON: None provided. FINDINGS: LUNG BASES: Atelectasis and scarring at the lung bases. LIVER: Unremarkable. GALLBLADDER AND BILE DUCTS: Tiny gallstone seen. PANCREAS: Unremarkable. SPLEEN: Unremarkable. ADRENAL GLANDS: Unremarkable. KIDNEYS, URETERS, AND BLADDER: Dueñas catheter seen in the bladder lumen. No hydronephrosis or nephrolithiasis. No ureteral calculi. STOMACH AND BOWEL: Edema or loops of small bowel suggesting moderate small bowel enteritis. Free air in the upper abdomen is seen, suggesting perforated bowel. No obstruction. APPENDIX: No CT evidence for appendicitis. PERITONEUM: Moderate ascites in the abdomen and pelvis. No free air under the diaphragm. LYMPH NODES: No lymphadenopathy. REPRODUCTIVE: Unremarkable as visualized. VASCULATURE: No aortic aneurysm. ABDOMINAL WALL AND SOFT TISSUES: There is air in the subcutaneous soft tissue seen anteriorly, suggesting recent postsurgical changes; please correlate with surgical history. BONES: No fracture or suspicious osseous abnormality. IMPRESSION: 1. Moderate small bowel enteritis with free air in the upper abdomen, suggesting perforated bowel versus post surgical changes. No obstruction. 2. Moderate ascites in the abdomen and pelvis. 3. Air in the subcutaneous soft tissue anteriorly, suggesting recent postsurgical changes; please correlate with surgical history. /[place] DICTATED BY: EDWIGE LEDESMA MD DATE: 07/20/252317 ELECTRONICALLY SIGNED BY: EDWIGE LEDESMA MD DATE: 07/20/252317 LABORATORY: [ ] Hematology Labs: Test 07/21/25 05:45 07/20/25 18:46 Range/Units White Blood Count 25.3 H 4.8-10.8 K/uL Red Blood Count 3.57 L 4.00-5.50 MIL/uL Hemoglobin 10.7 L 12.0-16.0 g/dL Hematocrit 33.0 L 36-48 % Mean Corpuscular Volume 92.4 79-99 fL Mean Corpuscular Hemoglobin 30.0 27.0-33.0 pg Mean Corpuscular Hemoglobin Concent 32.4 32.0-36.0 g/dL Red Cell Distribution Width 17.4 H 11.0-15.5 % Platelet Count 284 130-400 K/uL Mean Platelet Volume 10.1 7.5-10.5 fL Immature Granulocyte % (Auto) 1.7 H 0-1 % Neutrophils (%) (Auto) 86.5 H 40.0-77.0 % Lymphocytes (%) (Auto) 3.7 L 21.0-51.0 % Monocytes (%) (Auto) 7.5 3.0-13.0 % Eosinophils (%) (Auto) 0.0 0.0-8.0 % Basophils (%) (Auto) 0.6 0.0-5.0 % Neutrophils # (Auto) 21.9 H 1.8-7.7 K/uL Lymphocytes # (Auto) 1.0 1.0-4.8 K/uL Monocytes # (Auto) 1.9 H 0.1-1.0 K/uL Eosinophils # (Auto) 0.01 0.00-0.70 K/uL Basophils # (Auto) 0.14 0.00-0.20 K/uL Absolute Immature Granulocyte (auto 0.43 0-1 K/uL Nucleated Red Blood Cells 0.1 0.0-0.19 % White Cell Morphology Comment See comments Chemistry Labs: Test 07/21/25 08:57 07/21/25 05:45 07/21/25 00:25 07/20/25 18:46 Range/Units Whole Blood Glucose 98 70-110 MG/DL Sodium Level 133 L 136-145 mmol/L Potassium Level 4.4 3.5-5.1 mmol/L Chloride Level 100 L 101-111 mmol/L Carbon Dioxide Level 18 L 21-32 mmol/L Blood Urea Nitrogen 28 H 7-18 mg/dL Creatinine 2.0 H 0.5-1.0 mg/dL Glomerular Filtration Rate Calc 29 >90 mL/min Random Glucose 96 70-105 mg/dL Lactic Acid Level 3.4 H 0.8-2.5 mmol/L Total Calcium 7.7 L 8.5-10.1 mg/dL Phosphorus Level 4.8 2.5-4.9 mg/dL Magnesium Level 1.60 L 1.80-2.40 mg/dL Ammonia 40 H 11-32 umol/L Procalcitonin 10.32 H 0.05-0.5 ng/mL Hemoglobin A1c 5.5 4.0-6.0 % Estimated Average Glucose (eAG) 111 70-126 mg/dL Troponin I High Sensitivity 11 4-50 ng/L B-Type Natriuretic Peptide 68 0-100 pg/mL Lipase 11 L 16-77 U/L Coagulation Labs: Test 07/21/25 05:45 Range/Units Prothrombin Time 15.6 H 9.6-11.6 SEC Prothromb Time International Ratio 1.54 H 0.85-1.15 Activated Partial Thromboplast Time 37.0 H 26.3-35.5 SEC ASSESSMENT: Acute kidney injury Bilious peritonitis 2 mm perforation of the colonic anastomosis Diabetes Mellitus Type 2 Septic Shock Cirrhosis of liver Oesophageal Varices PLAN: Labs, diagnostic, radiologic exams reviewed and interpreted by myself and supervising physician. We have reviewed external records in detail Obtain UA, urine electrolytes, urine creatinine, urine osmolality and complete renal ultrasound Start thiamine 100 mg IV daily Please list home medications Require close monitoring of renal function and electrolytes Order CBC, CMP, uric acid, TSH and electrolytes in am Continue with antibiotics BiPAP as necessary, for respiratory distress IV pressors as needed Monitor blood pressure adjust medication doses as needed Avoid hypotensive episodes May use Dilaudid 0.5 mg IV every 6 hours as needed for severe pain Monitor blood sugars Strict intake, output, and daily weight should be monitored Please renally adjust medications Avoid nephrotoxic and nonsteroidal drugs Avoid contrast if possible Will continue to monitor renal function, anemia, electrolytes Treatment plan discussed with patient Questions were answered We have discussed with the other team physicians in detail about the care plan We will continue to monitor the patient closely Thank you for allowing us to participate in the care of this patient Total critical care time spent with patient, nursing staff, critical care team over 35 minutes ATTESTATION BY PHYSICIAN I have seen and examined the patient. I reviewed the documentation, medical decision making, and treatment plan as noted by the mid-level provider above. I agree with the findings and plan of care. CIELO PORTILLO MD, [facility] Jul 21, 2025 15:20
[2025-07-21] MEDS ORDERED: PHARMACY COMMUNICATION MISC SCH (15:30)
[2025-07-21] MEDS ORDERED: THIAMINE HCL IM SCH (15:30)
[2025-07-21] MEDS ORDERED: [UNRECOGNIZED DRUG - OTHER] IM SCH (15:30)
[2025-07-21 16:10] LABS: ABG BASE EXCESS -5.5 mmol/L (-2.0-3.0); ABG HCO3 19.3 mmol/L (21.0-28.0); ABG OXYGEN SATURATION 98.6 % (94.0-98.0); ABG PCO2 36 mmHg (32-45); ABG PH 7.353 (7.350-7.450); CARBON MONOXIDE 0.2 % (0.5-1.5); PO2, ARTERIAL BG 142.4 mmHg (83.0-108.0); TEMPERATURE, CELSIUS BG 37.0 CELSIUS (35.5-37.0); VENT MODE, BG NRB (ROOM AIR)
[2025-07-21] MEDS: SODIUM BICARB 50MEQ 50ML VIAL IV ONE (16:42)
[2025-07-21] MEDS ORDERED: ACET-2079 PO ×2 (17:50)
[2025-07-21] MEDS ORDERED: IBUP-2077 PO (17:50)
[2025-07-21] MEDS ORDERED: DOXY100C5 PO (17:50)
[2025-07-21] MEDS ORDERED: ONDA-104 PO (17:50)
[2025-07-21] MEDS ORDERED: CYCL5TAB3 PO (17:50)
[2025-07-21] MEDS ORDERED: PROP10TA10 PO (17:50)
[2025-07-22] VITALS (54 sets, daily range): BP systolic 95–167; BP diastolic 50–104; PULSE 59–87; RESP 9–44; TEMP 97.9–98.6; O2SAT 93–96
--- NOTE | 2025-07-22 02:36 | CONS ---
INFECTIOUS DISEASE CONSULTATION DATE OF SERVICE: 07/21/2025. REQUESTING PHYSICIAN: Bob Larson NP REASON FOR CONSULTATION: Septic shock. HISTORY OF PRESENT ILLNESS: This is a 55-year-old female with history of diabetes mellitus, liver cirrhosis, esophageal varices, who was admitted with abdominal pain. Imaging was done, showed the patient to have an intraperitoneal air. The patient was taken to surgery today with bowel resection, placement of ileostomy and drainage of intra-abdominal collection. PAST MEDICAL HISTORY: * Diabetes mellitus. * Liver cirrhosis. * Esophageal varices. PAST SURGICAL HISTORY: * Right knee surgery. * EGD. ALLERGIES: ASPIRIN. CURRENT MEDICATIONS: Reviewed include Zosyn. SOCIAL HISTORY: The patient is unable to give, intubated and sedated. FAMILY HISTORY: Unable to obtain. PHYSICAL EXAMINATION: GENERAL: Elderly female, awake, intubated and sedated. VITAL SIGNS: Temperature 97.9, pulse 97, respiratory rate 14, BP 100/50. EYES: No icterus. PERRLA. HENT: Orally intubated, on ventilatory support. NECK: Supple. No JVD or thyromegaly. LUNGS: Good air entry. No rales. No rhonchi. CARDIOVASCULAR SYSTEM: S1 and S2, regular. Tachycardic. No murmur heard. ABDOMEN: Full, in place, ileostomy on the left side. CENTRAL NERVOUS SYSTEM: Sedated, bedbound. SKIN: No rashes, no itchiness. MUSCULOSKELETAL: No joint swelling, erythema, or tenderness. LABORATORY DATA: Sodium 133, potassium 4.4, BUN 28, creatinine 2.0. WBC 25.3, hemoglobin 10.7, platelets 284. RADIOLOGY: CT of the abdomen results reviewed. ASSESSMENT: A 55-year-old female admitted with abdominal pain. Current problems include: * Septic shock. * Intestinal perforation, status post surgery. * Generalized peritonitis. * Respiratory failure. * Leukocytosis. PLAN: * Continue Zosyn. * Start the patient on fluconazole. * Continue critical care support. * Continue pain management. * Continue DVT prophylaxis. * Monitor electrolytes. * The patient will be followed up closely. TID: [id number] RECEIPT: [id number] [facility]
[2025-07-22 05:12] LABS: IMMATURE GRANULOCYTE ABSOLUTE 0.38 K/uL (0-1); NUCLEATED RED BLOOD CELLS 0.0 % (0.0-0.19); PLATELET COUNT (AUTO) 197 K/uL (130-400); RED BLOOD CELL COUNT(AUTO) 3.31 MIL/uL (4.00-5.50); RED CELL DISTRIBUTION WIDTH 17.7 % (11.0-15.5); WHITE BLOOD COUNT (AUTO) 13.3 K/uL (4.8-10.8)
[2025-07-22 05:31] LABS: ASPARTATE AMINOTRANSFERASE 23.0 U/L (10-37); CREATININE 1.4 mg/dL (0.5-1.0); GLOMERULAR FILTR. RATE CALC 44.0 mL/min (>90); GLUCOSE,RANDOM 141.0 mg/dL (70-105); PHOSPHORUS 4.1 mg/dL (2.5-4.9); SODIUM SERUM 142.0 mmol/L (136-145); TOTAL PROTEIN, SERUM 5.0 g/dL (6.0-8.3); UREA NITROGEN, BLOOD 36.0 mg/dL (7-18)
--- NOTE | 2025-07-22 09:38 | PN ---
[facility] PROGRESS NOTE Date of Service: Jul 22, 2025 Time of Service: 09:19 SUBJECTIVE: Ms. Gray is a 55-year-old female that was seen and examined today on 07/20/2025. Patient reports that she came to the emergency department with a chief complaint of abdominal pain. Onset was 07/09/2025. Location is all four quadrants. Duration is constant. Character is described as pressure and " like I have a lot of gas trapped. " there was no alleviating factors. There was no aggravating factors. Patient reports associated abdominal swelling. 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 After the discharge she was taking pain medications and her condition started worsening after few days. She is in constant follow up with Dr Gann. Today in the emergency department WBCs 21.2, left shift neutrophils 85.5%, BUN 26, creatinine 3.1, GFR 17, lactic acid 8.0, no urinalysis has been collected or sent to lab, CT of abdomen and pelvis showed of free air in the abdomen which could be a suspected bowel perforation versus postsurgical changes, moderate ascites, fissure post surgical changes. Chest x-ray shows right pleural effusion. Additionally patient had a heart rate of 125, respirations 26, together with leukocytosis and lactic acidosis patient met clinical sepsis criteria additionally patient's blood pressure dropped to 85/50 mmHg requiring vasopressor support therefore meeting criteria for septic shock. Patient will be admitted to the intensive care unit. Emergency room physician spoke with patient's surgeon, Dr. Gann who requested patient be admitted under hospitalist service and she will follow this case along. 07/21/25 Patient was evaluated at the bedside. She was accompanied by her daughter. She is oriented to the time, place and person. She complained of abdominal pain in all the quadrants. She hasn't had bowel movement since Saturday and also is unable to pass flatus at this time. She has guarding, rigidity and tenderness all over the abdomen, showing the signs of peritonitis. She was seen by Dr Gann this mo rning and is planned to be taken to OR this afternoon. Dueñas catheter is in place, as she wasn't able to pass the urine. There is no fever, chills and any other signs of infection. 07/22/25 Patient was evaluated at the bedside. She was accompanied by her daughter. She is oriented to the time, place and person. She underwent Diagnostic laparoscopy, abdominal washout, drain placement and diverting loop ileostomy creation, The procedure revealed Bilious peritonitis, 2 mm perforation of the colonic anastomosis. She is hemodynamically stable with Blood pressure of 110/73 and HR of 83. Currently she complains of abdominal pain which is getting better than yesterday, its 3-4/10 intensity. There is no rigidity. She is anxious about the outcomes and had discussion regarding her current clinical status and lab parameters. There is no fever, chills and any other signs of infection. REVIEW OF SYSTEMS CONSTITUTIONAL: No fever, chills, or night sweats. NEUROLOGICAL: Denies headache, sensory and motor deficit. CARDIOVASCULAR: Denies any exertional angina, dyspnea on exertion, palpitations. PULMONARY: Denies any shortness of breath, cough, phlegm/sputum, hemoptysis, pleuritic chest pain. GASTROINTESTINAL: Patient complains of diffuse abdominal pain 3-4/10 intensity. Denies nausea, vomiting. GENITOURINARY: Denies frequency, urgency, nocturia, hematuria or incontinence. PHYSICAL EXAM GENERAL APPEARANCE: The patient is alert, awake and oriented and bedbound. NEUROLOGICAL: No sensory and motor deficits. CHEST: Normal chest expansion. LUNGS: Normal Vesicular breath sound. Absence of any rales, rhonchi or any wheezing. CARDIOVASCULAR: Regular. S1 and S2 normal. No appreciable rubs, murmurs or gallops. ABDOMEN: Abdomen is slightly tender. Absence of guarding and rigidity. GENITOURINARY: No suprapubic tenderness. No costovertebral angle tenderness. Vital Signs (last 8hr) Date Time Temp Pulse Resp B/P (MAP) Pulse Ox O2 Delivery O2 Flow Rate FiO2 07/22/25 04:15 83 12 110/73 (85) 90 104/51 (68) 07/22/25 04:00 98.2 81 19 104/52 (69) 93 07/22/25 04:00 93 Room Air* 0 N/A Non-Rebreather+ 07/22/25 03:45 80 11 126/72 (90) 94 113/57 (75) 07/22/25 03:30 81 14 112/55 (74) 94 07/22/25 03:15 79 11 128/72 (90) 94 116/59 (78) 07/22/25 03:00 80 12 116/58 (77) 95 07/22/25 02:45 80 12 115/75 (88) 95 112/57 (75) 07/22/25 02:30 86 44 111/54 (73) 97 07/22/25 02:15 81 11 129/76 (93) 96 115/59 (77) 07/22/25 02:00 82 11 112/56 (74) 96 07/22/25 01:45 85 10 127/71 (89) 96 110/54 (72) 07/22/25 01:30 80 12 109/55 (73) 95 LABS: Laboratory: Test 07/22/25 04:20 07/21/25 20:17 07/21/25 16:09 07/21/25 05:45 Range/Units White Blood Count 13.3 #H 4.8-10.8 K/uL Red Blood Count 3.31 L 4.00-5.50 MIL/uL Hemoglobin 9.8 L 12.0-16.0 g/dL Hematocrit 30.9 L 36-48 % Mean Corpuscular Volume 93.4 79-99 fL Mean Corpuscular Hemoglobin 29.6 27.0-33.0 pg Mean Corpuscular Hemoglobin Concent 31.7 L 32.0-36.0 g/dL Red Cell Distribution Width 17.7 H 11.0-15.5 % Platelet Count 197 # 130-400 K/uL Mean Platelet Volume 9.9 7.5-10.5 fL Immature Granulocyte % (Auto) 2.8 H 0-1 % Neutrophils (%) (Auto) 82.4 H 40.0-77.0 % Lymphocytes (%) (Auto) 7.3 L 21.0-51.0 % Monocytes (%) (Auto) 5.6 3.0-13.0 % Eosinophils (%) (Auto) 1.5 0.0-8.0 % Basophils (%) (Auto) 0.4 0.0-5.0 % Neutrophils # (Auto) 11.0 H 1.8-7.7 K/uL Lymphocytes # (Auto) 1.0 1.0-4.8 K/uL Monocytes # (Auto) 0.8 0.1-1.0 K/uL Eosinophils # (Auto) 0.20 0.00-0.70 K/uL Basophils # (Auto) 0.06 0.00-0.20 K/uL Absolute Immature Granulocyte (auto 0.38 0-1 K/uL Nucleated Red Blood Cells 0.0 0.0-0.19 % Sodium Level 142 136-145 mmol/L Potassium Level 3.8 3.5-5.1 mmol/L Chloride Level 105 101-111 mmol/L Carbon Dioxide Level 20 L 21-32 mmol/L Blood Urea Nitrogen 36 H 7-18 mg/dL Creatinine 1.4 H 0.5-1.0 mg/dL Glomerular Filtration Rate Calc 44 >90 mL/min Random Glucose 141 H 70-105 mg/dL Uric Acid 6.4 2.6-7.2 mg/dL Total Calcium 7.6 L 8.5-10.1 mg/dL Phosphorus Level 4.1 2.5-4.9 mg/dL Magnesium Level 1.90 1.80-2.40 mg/dL Total Bilirubin 0.7 0.2-1.0 mg/dL Aspartate Amino Transf (AST/SGOT) 23 10-37 U/L Alanine Aminotransferase (ALT/SGPT) 12 12-78 U/L Alkaline Phosphatase 108 50-136 U/L Total Protein 5.0 L 6.0-8.3 g/dL Albumin 1.8 L 3.5-5.0 g/dL Thyroid Stimulating Hormone (TSH) 0.27 L 0.36-3.74 uIU/mL Whole Blood Glucose 106 70-110 MG/DL Blood Gas Specimen Type Arterial Arterial Blood pH 7.353 7.350-7.450 Arterial Blood Partial Pressure CO2 36 32-45 mmHg Arterial Blood Partial Pressure O2 142.4 H 83.0-108.0 mmHg Arterial Blood HCO3 19.3 L 21.0-28.0 mmol/L Arterial Blood Oxygen Saturation 98.6 H 94.0-98.0 % Arterial Blood Base Excess -5.5 L -2.0-3.0 mmol/L Hemoglobin (Blood Gas) 11.2 L 12.0-16.0 g/dL Sodium (Blood Gas) 137 136-145 MMOL/L Bedside Potassium (Blood Gas) 4.0 3.4-4.5 MMOL/L Bedside Chloride (Blood Gas) 107 98-107 MMOL/L Bedside Glucose (Blood Gas) 92 65-95 MG/DL Bedside Ionized Calcium (Blood Gas) 0.99 L 1.15-1.33 MMOL/L Bedside Lactic Acid (Blood Gas) 2.30 H 0.36-0.75 MMOL/L Blood Gas Temperature 37.0 35.5-37.0 CELSIUS Blood Gas Vent Mode NRB ROOM AIR FiO2 100.0 % Blood Gas Specimen Comment KRISHNA COLEMAN Prothrombin Time 15.6 H 9.6-11.6 SEC Prothromb Time International Ratio 1.54 H 0.85-1.15 Activated Partial Thromboplast Time 37.0 H 26.3-35.5 SEC Lactic Acid Level 3.4 H 0.8-2.5 mmol/L Test 07/21/25 00:25 07/21/25 00:11 07/20/25 18:46 Range/Units Ammonia 40 H 11-32 umol/L Procalcitonin 10.32 H 0.05-0.5 ng/mL Urine Color YELLOW YELLOW Urine Appearance CLOUDY H CLEAR Urine pH 5.5 5.0-8.0 Urine Specific [place] >1.050 1.001-1.031 Urine Protein 30 H NEGATIVE mg/dL Urine Glucose (UA) NEGATIVE NEGATIVE mg/dL Urine Ketones NEGATIVE NEGATIVE mg/dL Urine Occult Blood +- (TRACE) H NEGATIVE Urine Nitrate NEGATIVE NEGATIVE Urine Bilirubin NEGATIVE NEGATIVE mg/dL Urine Urobilinogen 0.2 0.2-1.0 mg/dL Urine Leukocyte Esterase NEGATIVE NEGATIVE Regino/uL Urine RBC 11-25 H 0-1 /HPF Urine WBC 26-50 H 0-1 /HPF Urine Squamous Epithelial Cells Few 0-2 /HPF Urine Bacteria RARE None Seen /HPF Urine Osmolality 335 50-1200 mOsm/kg Urine Random Creatinine 132.17 30-135 mg/dL Urine Random Sodium < 13 L 40-220 mmol/l Urine Random Potassium 32 25-125 mmol/L Urine Random Chloride < 21 L 110-250 mmol/L SARS-CoV-2 Antigen (Rapid) PRESUMPTIVE NEGATIVE NEGATIVE White Cell Morphology Comment See comments Hemoglobin A1c 5.5 4.0-6.0 % Estimated Average Glucose (eAG) 111 70-126 mg/dL Troponin I High Sensitivity 11 4-50 ng/L B-Type Natriuretic Peptide 68 0-100 pg/mL Lipase 11 L 16-77 U/L Current Medications Medications (Trade) Dose Ordered Sig/Gregory Route PRN Reason Start Time Stop Time Status Last Admin Dose Admin Acetaminophen (TYLenol 650MG SUPPOSITORY) 650 mg Q6H PRN RC MILD PAIN (1-3) 07/21/25 00:00 08/20/25 00:00 Fluconazole/ Sodium Chloride (DiFLUCan 200 MG/ NS 100 ML) 200 mg Q24H IVPB 07/21/25 21:00 08/20/25 20:59 07/21/25 21:03 200 MG Insulin Human Regular (humuLIN R 100 UNIT/ML 3ML) INSULIN SLIDING SCAL... ACHS SQ 07/21/25 07:30 08/20/25 07:29 Lactated Ringer's 1,000 ml @ 75 mls/hr [id number] IV 07/21/25 00:00 07/21/25 13:17 DC 07/21/25 02:57 75 MLS/HR Lactated Ringer's 1,000 ml @ 75 mls/hr [id number] IV 07/21/25 13:30 08/20/25 13:29 07/22/25 03:00 75 MLS/HR Magnesium Sulfate 50 ml @ 0 mls/hr PROTOCOL PRN IV MAGNESIUM PROTOCOL 07/21/25 07:00 08/20/25 06:59 Metronidazole/ Sodium Chloride (flaGYL) 500 mg Q8H IV 07/21/25 14:00 07/21/25 13:40 DC Morphine Sulfate (morPHINE 2MG SYG) 2 mg Q4H PRN IVP SEVERE PAIN (7-10) 07/21/25 00:30 07/21/25 13:18 DC 07/21/25 04:46 2 MG Morphine Sulfate (morPHINE 4MG SYG) 4 mg Q3H PRN IV SEVERE PAIN (7-10) 07/21/25 13:30 07/28/25 13:29 Norepinephrine 250 ml @ 0 mls/hr PROTOCOL IV 07/20/25 23:30 08/19/25 23:29 07/21/25 10:56 18.45 MLS/HR Ondansetron HCl (zoFRAN 4MG INJ) 4 mg Q4H PRN IVP NAUSEA 07/21/25 13:30 08/20/25 13:29 Ondansetron HCl (zoFRAN 4MG INJ) 4 mg Q6H PRN IV NAUSEA/VOMITING 07/21/25 00:00 07/21/25 13:18 DC Pantoprazole Sodium (PROTonix 40MG INJ) 40 mg DAILY IV 07/21/25 09:00 08/20/25 08:59 07/21/25 09:00 40 MG Pharmacy Profile Note (Pharmacy Communication) 1 each ONCE MISC 07/21/25 15:30 07/21/25 15:16 DC Piperacillin Sod/ Tazobactam Sod 50 ml @ 200 mls/hr ONCE STAT IVPB 07/20/25 19:15 07/20/25 19:29 DC 07/20/25 20:32 200 MLS/HR Piperacillin Sod/ Tazobactam Sod (Zosyn 3.375gm+NS 50ml) 3.375 gm Q12H IV 07/21/25 00:00 07/31/25 00:00 07/21/25 23:18 3.375 GM Sodium Bicarbonate 150 meq/Sodium Chloride 1,150 ml @ 0 mls/hr Q0M IVP 07/21/25 14:00 08/20/25 13:59 Thiamine HCl (Vitamin B-1) 100 mg DAILY IVP 07/22/25 21:00 08/21/25 20:59 Thiamine HCl 100 mg/Sodium Chloride 50 ml @ 100 mls/hr Q24H IM 07/21/25 15:30 07/21/25 16:25 DC Vancomycin HCl (Vancomycin 1g/ 250ml Kit) 1 gm ONCE STAT IV 07/20/25 21:23 07/20/25 21:26 DC 07/20/25 22:06 1 GM Vasopressin 20 units/Sodium Chloride 100 ml @ 0 mls/hr PROTOCOL IV 07/21/25 00:30 08/20/25 00:29 07/21/25 00:10 9 MLS/HR DIAGNOSTICS / RADIOLOGY: [place] [address] IMAGING REPORT Signed PATIENT: DALLAS BUCHANAN MR#: [id number] : 1970 SEX: F AGE: 55 LOCATION: 2BH ORDER STATUS: ADM IN REPORT#: [id number] SERVICE REASON: PICC LINE ORDERING PHYSICIAN: HEATHER LEACH APRN PROCEDURE: CXR1VW - CHEST 1VW EXAM: CR Chest, single view. CLINICAL HISTORY: PICC line COMPARISON: Prior same day chest radiograph. FINDINGS: Right-sided PICC catheter with tip in the cavoatrial junction. Subsegmental atelectasis in the right lower lobe. No evidence of pleural effusion or pneumothorax. The cardiomediastinal silhouette is within normal limits. No acute osseous abnormality. IMPRESSION: Right-sided PICC catheter with tip in the cavoatrial junction. Subsegmental atelectasis in the right lower lobe. No evidence of pleural effusion or pneumothorax. Compared to the prior study, there is interval placement of the right-sided PICC line and interval resolution of the subsegmental atelectasis in the left lower lobe. /[place] DICTATED BY: ELDON MILLER Jr., MD DATE: 07/21/25816 ELECTRONICALLY SIGNED BY: ELDON MILLER Jr., MD DATE: 07/21/25816 ASSESSMENT: Diagnostic laparoscopy, abdominal washout, drain placement and diverting loop ileostomy creation, Status Post Day 1 Suspected Bowel Perforation POA Robotic takedown of splenic flexure mobilization, robotic takedown of coloves ical fistula with sigmoid colectomy and end-to-end anastomosis Diabetes Mellitus Type 2 POA Acute Kidney Injury POA Septic Shock POA Cirrhosis of liver POA Oesophageal Varices PLAN: Diagnostic laparoscopy, abdominal washout, drain placement and diverting loop ileostomy creation, Status Post Day [address] Gann -Abdominal cavity showed pneumoperitoneum and rebecca bilious peritonitis. Bile was suctioned out 2500 cc. -Evaluated the stomach and there was no signs of perforation and it was very distended. -Colonic anastomosis had area of bubbling and there was a 2 mm dehiscence of the anastomosis with perforation. -Abdominal washout, drain placement and diverting loop ileostomy creation was performed. - After the surgery She is now hemodynamically stable. She has been counseled about her current clinical status and was reassured. - Continue Lactated Ringer's at 75 ml/hr for volume resuscitation and electrolyte replacement. Bowel Perforation, Dehiscence of the anastomosis - Patient had repair of colo vesicular fistula with sigmoid colon resection and anastomosis on 07/09/25. - CT abdominal pelvis w/contrast showed Free air in the upper abdomen is seen, suggesting perforated bowel vs post surgical changes. No obstruction. - As per Dr Gann patient is planned to be taken to OR this afternoon for further assessment and management. - Patient had signs of Peritonitis like guarding, rigidity and the tenderness, post surgery. - She has bloating and abdominal distension. - Currently on Zosyn (Day 2) and Fluconazole (Day 2). Septic Shock -White blood cells has trended down to 13.3. 05/21/25 -Her WBC during the presentation was 21.2 and today its 25.3. 07/21/25 - Blood pressure initially 85/50, Pulse 125, Temperature 98.4. 07/20/25 - Lactic acid similarly was 8.0 and today it trended down to 3.4. 07/21/25 - Procalcitonin level is 10.32. - She was given Ringer's Lactate and Vasopressin along with Norepinephrine on 07/20/25. Acute Kidney Injury - Renal function is improving with creatinine level of 1.4. 07/22/25 -FeNA is 0.1 %, secondary to dehydration and NSAIDs overuse. - Creatinine is trending down from 3.1 to 2.0. 07/21/25 - She received Ringers Lactate. -Urine sodium is < 13 and urine creatinine is 132.17. -Avoid nephrotoxic agents, eg. NSAIDS. -Weight patient daily. -Monitor intake and output. Cirrhosis of liver -Patient has a past history of cirrhosis of liver. -Ammonia level was 40 as of 07/21/25. - Liver functions are within normal limits. AST 23, ALT 12 and ALP 108. - Avoid NSAIDs and high dose acetaminophen. -Maintain appropriate volume of the patient. Supportive measures -Maintain IV fluids, correct electrolytes -Serial abdominal exams -Engine [employer]r Service on avoidance of NSAIDS and other related triggers. -Monitor Vitals and perform morning labs regularly ATTESTATION BY PHYSICIAN I have seen and examined the patient. I reviewed the documentation, medical decision making, and treatment plan as noted by the resident provider above. I agree with the findings and plan of care. Miguel Conley MD [facility] MD Jul 22, 2025 09:38
--- NOTE | 2025-07-22 09:40 | NUR ---
Dr. Givens rounded on patient. Updated MD on patient status. MD gave orders for morning labs.
--- NOTE | 2025-07-22 10:21 | PN ---
NEPHROLOGY PROGRESS NOTE Date/Time Patient Seen: Jul 22, 2025 SUBJECTIVE: This is a 55-year-old female with a past medical history of diabetes mellitus type 2, liver cirrhosis, esophageal varices. He presented to the emergency room with chief complain of abdominal pain. CT of the abdomen showed moderate small bowel enteritis with free air in the upper abdomen, suggesting perforated bowel versus post surgical changes. No obs truction. S/p diagnostic laparoscopy, abdominal washout, drain placement and diverting loop ileostomy creation with CHRIS drain 10 [place] on 07/21 Vasopressors have been discontinued She was noted to have elevated BUN/creatinine We are consulted for renal failure Renal function is improving Electrolytes are stable. She was seen in the ICU, in no acute distress No family at the bedside REVIEW OF SYSTEMS: GENERAL: Positive for abdominal pain and nausea NEUROLOGIC: Negative for any blurry vision, blind spots, double vision, facial asymmetry, dysphagia, dysarthria, hemiparesis, hemisensory deficits, vertigo, ataxia. HEENT: Negative for any head trauma, neck trauma, neck stiffness, photophobia, phonophobia, sinusitis, rhinitis. CARDIAC: Negative for any chest pain, dyspnea on exertion, paroxysmal nocturnal dyspnea, peripheral edema. PULMONARY: Negative for any shortness of breath, wheezing, COPD, or TB exposure. GASTROINTESTINAL: Negative for any abdominal pain, nausea, vomiting, bright red blood per rectum, melena. GENITOURINARY: Negative for any dysuria, hematuria, incontinence. INTEGUMENTARY: Negative for any rashes, cuts, insect bites. RHEUMATOLOGIC: Negative for any joint pains, photosensitive rashes, history of vasculitis or kidney problems. HEMATOLOGIC: Negative for any abnormal bruising, frequent infections or bleeding. PHYSICAL EXAM: GENERAL: Alert and oriented x 3. No acute distress. Well-nourished. EYES: EOMI. Anicteric. HENT: Moist mucous membranes. No scleral icterus. No cervical lymphadenopathy. LUNGS: Clear to auscultation bilaterally. No accessory muscle use. CARDIOVASCULAR: Regular rate and rhythm. No murmur. No JVD. ABDOMEN: Soft, non-tender and non-distended. No palpable masses. EXTREMITIES: No edema. Non-tender SKIN: No rashes or lesions. Warm. NEUROLOGIC: No focal neurological deficits. CN II-XII grossly intact, but not individually tested. PSYCHIATRIC: Cooperative. Appropriate mood and affect. LABORATORY: [ ] Hematology Labs: Test 07/22/25 04:20 07/20/25 18:46 Range/Units White Blood Count 13.3 #H 4.8-10.8 K/uL Red Blood Count 3.31 L 4.00-5.50 MIL/uL Hemoglobin 9.8 L 12.0-16.0 g/dL Hematocrit 30.9 L 36-48 % Mean Corpuscular Volume 93.4 79-99 fL Mean Corpuscular Hemoglobin 29.6 27.0-33.0 pg Mean Corpuscular Hemoglobin Concent 31.7 L 32.0-36.0 g/dL Red Cell Distribution Width 17.7 H 11.0-15.5 % Platelet Count 197 # 130-400 K/uL Mean Platelet Volume 9.9 7.5-10.5 fL Immature Granulocyte % (Auto) 2.8 H 0-1 % Neutrophils (%) (Auto) 82.4 H 40.0-77.0 % Lymphocytes (%) (Auto) 7.3 L 21.0-51.0 % Monocytes (%) (Auto) 5.6 3.0-13.0 % Eosinophils (%) (Auto) 1.5 0.0-8.0 % Basophils (%) (Auto) 0.4 0.0-5.0 % Neutrophils # (Auto) 11.0 H 1.8-7.7 K/uL Lymphocytes # (Auto) 1.0 1.0-4.8 K/uL Monocytes # (Auto) 0.8 0.1-1.0 K/uL Eosinophils # (Auto) 0.20 0.00-0.70 K/uL Basophils # (Auto) 0.06 0.00-0.20 K/uL Absolute Immature Granulocyte (auto 0.38 0-1 K/uL Nucleated Red Blood Cells 0.0 0.0-0.19 % White Cell Morphology Comment See comments Chemistry Labs: Test 07/22/25 04:20 07/21/25 20:17 07/21/25 05:45 07/21/25 00:25 Range/Units Sodium Level 142 136-145 mmol/L Potassium Level 3.8 3.5-5.1 mmol/L Chloride Level 105 101-111 mmol/L Carbon Dioxide Level 20 L 21-32 mmol/L Blood Urea Nitrogen 36 H 7-18 mg/dL Creatinine 1.4 H 0.5-1.0 mg/dL Glomerular Filtration Rate Calc 44 >90 mL/min Random Glucose 141 H 70-105 mg/dL Uric Acid 6.4 2.6-7.2 mg/dL Total Calcium 7.6 L 8.5-10.1 mg/dL Phosphorus Level 4.1 2.5-4.9 mg/dL Magnesium Level 1.90 1.80-2.40 mg/dL Total Bilirubin 0.7 0.2-1.0 mg/dL Aspartate Amino Transf (AST/SGOT) 23 10-37 U/L Alanine Aminotransferase (ALT/SGPT) 12 12-78 U/L Alkaline Phosphatase 108 50-136 U/L Total Protein 5.0 L 6.0-8.3 g/dL Albumin 1.8 L 3.5-5.0 g/dL Thyroid Stimulating Hormone (TSH) 0.27 L 0.36-3.74 uIU/mL Whole Blood Glucose 106 70-110 MG/DL Lactic Acid Level 3.4 H 0.8-2.5 mmol/L Ammonia 40 H 11-32 umol/L Procalcitonin 10.32 H 0.05-0.5 ng/mL Test 07/20/25 18:46 Range/Units Hemoglobin A1c 5.5 4.0-6.0 % Estimated Average Glucose (eAG) 111 70-126 mg/dL Troponin I High Sensitivity 11 4-50 ng/L B-Type Natriuretic Peptide 68 0-100 pg/mL Lipase 11 L 16-77 U/L Coagulation Labs: Test 07/21/25 05:45 Range/Units Prothrombin Time 15.6 H 9.6-11.6 SEC Prothromb Time International Ratio 1.54 H 0.85-1.15 Activated Partial Thromboplast Time 37.0 H 26.3-35.5 [facility] / RADIOLOGY: [place] [id number] [address] IMAGING REPORT Signed PATIENT: DALLAS BUCHANAN MR#: [id number] : 1970 SEX: F AGE: 55 LOCATION: 2BH ORDER 0100 STATUS: ADM IN REPORT#: [id number] SERVICE 0100 REASON: PICC LINE ORDERING PHYSICIAN: HEATHER LEACH APRN PROCEDURE: CXR1VW - CHEST 1VW EXAM: CR Chest, single view. CLINICAL HISTORY: PICC line COMPARISON: Prior same day chest radiograph. FINDINGS: Right-sided PICC catheter with tip in the cavoatrial junction. Subsegmental atelectasis in the right lower lobe. No evidence of pleural effusion or pneumothorax. The cardiomediastinal silhouette is within normal limits. No acute osseous abnormality. IMPRESSION: Right-sided PICC catheter with tip in the cavoatrial junction. Subsegmental atelectasis in the right lower lobe. No evidence of pleural effusion or pneumothorax. Compared to the prior study, there is interval placement of the right-sided PICC line and interval resolution of the subsegmental atelectasis in the left lower lobe. /[facility] DICTATED BY: ELDON MILLER Jr., MD DATE: 07/21/25816 ELECTRONICALLY SIGNED BY: ELDON MILLER Jr., MD DATE: 07/21/25816 PATIENT: DALLAS BUCHANAN MR#: [id number] : 1970 SEX: F AGE: 55 LOCATION: EDH ORDER 14 STATUS: [facility] REPORT#: [id number] SERVICE 12 REASON: CHEST PAIN/COUGH ORDERING PHYSICIAN: ALHAJI SHINE NP PROCEDURE: CXR1VW - CHEST 1VW EXAM: XR Chest, 1 View. CLINICAL HISTORY: 55 year old female with chest pain and cough. COMPARISON: None provided. FINDINGS: LUNGS: The lungs demonstrate evidence of atelectasis. PLEURAL SPACES: A small right pleural effusion is present. HEART: The heart size is normal. BONES: No acute osseous abnormality. IMPRESSION: 1. Small right pleural effusion and right lung base atelectasis. /[facility] DICTATED BY: EDWIGE LEDESMA MD DATE: 07/20/252046 ELECTRONICALLY SIGNED BY: EDWIGE LEDESMA MD DATE: 07/20/252046 PATIENT: DALLAS BUCHANAN MR#: [id number] : 1970 SEX: F AGE: 55 LOCATION: EDH ORDER 14 STATUS: REG REPORT#: [id number] SERVICE 12 REASON: Abdominal Pain ORDERING PHYSICIAN: ALHAJI SHINE NP PROCEDURE: ABD PEL W - CT ABDOMEN/PELVIS W/CONTRAST ADDENDUM REPORT ADDENDUM: Results were shared by telephone at 23:23 pm on 07-20-2025 and acknowledged by Pt nurse Ms. SHIN BOYKIN. /[facility] EXAM: CT Abdomen and Pelvis with Intravenous Contrast CLINICAL HISTORY: 55-year-old female with abdominal pain. TECHNIQUE: Axial computed tomography images of the abdomen and pelvis with intravenous contrast. Dose reduction technique was used including one or more of the following: automated exposure control, adjustment of mA and kV according to patient size, and/or iterative reconstruction. CONTRAST: Omnipaque 350, 75 mL COMPARISON: None provided. FINDINGS: LUNG BASES: Atelectasis and scarring at the lung bases. LIVER: Unremarkable. GALLBLADDER AND BILE DUCTS: Tiny gallstone seen. PANCREAS: Unremarkable. SPLEEN: Unremarkable. ADRENAL GLANDS: Unremarkable. KIDNEYS, URETERS, AND BLADDER: Dueñas catheter seen in the bladder lumen. No hydronephrosis or nephrolithiasis. No ureteral calculi. STOMACH AND BOWEL: Edema or loops of small bowel suggesting moderate small bowel enteritis. Free air in the upper abdomen is seen, suggesting perforated bowel. No obstruction. APPENDIX: No CT evidence for appendicitis. PERITONEUM: Moderate ascites in the abdomen and pelvis. No free air under the diaphragm. LYMPH NODES: No lymphadenopathy. REPRODUCTIVE: Unremarkable as visualized. VASCULATURE: No aortic aneurysm. ABDOMINAL WALL AND SOFT TISSUES: There is air in the subcutaneous soft tissue seen anteriorly, suggesting recent postsurgical changes; please correlate with surgical history. BONES: No fracture or suspicious osseous abnormality. IMPRESSION: 1. Moderate small bowel enteritis with free air in the upper abdomen, suggesting perforated bowel versus post surgical changes. No obstruction. 2. Moderate ascites in the abdomen and pelvis. 3. Air in the subcutaneous soft tissue anteriorly, suggesting recent postsurgical changes; please correlate with surgical history. /[facility] DICTATED BY: EDWIGE LEDESMA MD DATE: 07/20/25 7307 ELECTRONICALLY SIGNED BY: DATE: EXAM: CT Abdomen and Pelvis with Intravenous Contrast CLINICAL HISTORY: 55-year-old female with abdominal pain. TECHNIQUE: Axial computed tomography images of the abdomen and pelvis with intravenous contrast. Dose reduction technique was used including one or more of the following: automated exposure control, adjustment of mA and kV according to patient size, and/or iterative reconstruction. CONTRAST: Omnipaque 350, 75 mL COMPARISON: None provided. FINDINGS: LUNG BASES: Atelectasis and scarring at the lung bases. LIVER: Unremarkable. GALLBLADDER AND BILE DUCTS: Tiny gallstone seen. PANCREAS: Unremarkable. SPLEEN: Unremarkable. ADRENAL GLANDS: Unremarkable. KIDNEYS, URETERS, AND BLADDER: Dueñas catheter seen in the bladder lumen. No hydronephrosis or nephrolithiasis. No ureteral calculi. STOMACH AND BOWEL: Edema or loops of small bowel suggesting moderate small bowel enteritis. Free air in the upper abdomen is seen, suggesting perforated bowel. No obstruction. APPENDIX: No CT evidence for appendicitis. PERITONEUM: Moderate ascites in the abdomen and pelvis. No free air under the diaphragm. LYMPH NODES: No lymphadenopathy. REPRODUCTIVE: Unremarkable as visualized. VASCULATURE: No aortic aneurysm. ABDOMINAL WALL AND SOFT TISSUES: There is air in the subcutaneous soft tissue seen anteriorly, suggesting recent postsurgical changes; please correlate with surgical history. BONES: No fracture or suspicious osseous abnormality. IMPRESSION: 1. Moderate small bowel enteritis with free air in the upper abdomen, suggesting perforated bowel versus post surgical changes. No obstruction. 2. Moderate ascites in the abdomen and pelvis. 3. Air in the subcutaneous soft tissue anteriorly, suggesting recent postsurgical changes; please correlate with surgical history. /[facility] DICTATED BY: EDWIGE LEDESMA MD DATE: 07/20/252317 ELECTRONICALLY SIGNED BY: EDWIGE LEDESMA MD DATE: 07/20/252317 ASSESSMENT: Acute kidney injury Bilious peritonitis 2 mm perforation of the colonic anastomosis Diabetes Mellitus Type 2 Septic Shock Cirrhosis of liver Oesophageal Varices PLAN: Labs, diagnostic, radiologic exams reviewed and interpreted by myself and supervising physician. We have reviewed external records in detail There is no need for renal replacement therapy at this time. Require close monitoring of renal function and electrolytes Order CBC, CMP, and electrolytes in am Continue with antibiotics BiPAP as necessary, for respiratory distress IV pressors as needed Monitor blood pressure adjust medication doses as needed Avoid hypotensive episodes May use Dilaudid 0.5 mg IV every 6 hours as needed for severe pain Monitor blood sugars Strict intake, output, and daily weight should be monitored Please renally adjust medications Avoid nephrotoxic and nonsteroidal drugs Avoid contrast if possible Will continue to monitor renal function, anemia, electrolytes Treatment plan discussed with patient Questions were answered We have discussed with the other team physicians in detail about the care plan We will continue to monitor the patient closely Total critical care time spent with patient, nursing staff, critical care team over 35 minutes ATTESTATION BY PHYSICIAN I have seen and examined the patient. I reviewed the documentation, medical decision making, and treatment plan as noted by the mid-level provider above. I agree with the findings and plan of care. CIELO PORTILLO MD, [facility] Jul 22, 2025 10:20
--- NOTE | 2025-07-22 12:05 | PN ---
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 Patient found to have an elevated white count, CT of the abdomen revealed a possible bowel perforation. Patient hypotensive started on vaso and levo along with antibiotics of Zosyn, patient's lactic was 4.7. Admitted to the ICU with surgical consultation. Patient seen and examined this morning in the ICU. Comfortable, on room air alert and oriented and no fevers. White count improving and lactic is down to 3.4. She has an elevated procalcitonin, surgical plan is to take the patient back to the OR. Interval history: Patient has been seen and examined, all labs and imaging have been reviewed. Nursing reports: No acute events overnight Patient is awake alert and oriented, reporting her pain controlled. She has good saturations on room air. No fevers Cultures negative, continues on Zosyn and Flagyl White count improved to 13, renal function improved, and her bicarb has also improved. CHRIS minimal, NG 512 hours She has been off Moiz since 4:00 a.m. Pending ammonia level Plan: Follow surgical recs, discontinue bicarb drip Antibiotics, follow cultures I&Os Ammonia level Patient downgraded to PCCU Code Status: Full Resuscitation GI & DVT Prophylaxis REVIEW OF SYSTEMS: General: No malaise or fever. Neurological: - anxiety - HEENT: No nasal congestion or nasal secretion. Respiratory: No cough, shortness of breath, or wheezing Cardiac: No chest pain or palpitations. Gastrointestinal: No vomiting or diarrhea. Genitourinary: No dysuria hematuria. Skin: No rashes or lesions. Hematological: No bruises or bleeding. Musculoskeletal: No joint pains or arthralgias. Psychiatric: No depression or panic attacks. PHYSICAL EXAM: GENERAL: alert, weak, awake oriented x 3 HEENT: EOMI, Sclera non icteric, moist mucosa NECK: Supple, no JVD, trachea midline LUNGS: Clear breath sounds bilaterally. No wheezes HEART: Regular rate and rhythm. Normal S1 and S2, without murmurs ABD: Obese Abdomen soft, nontender. Bowel sounds present EXT: No clubbing cyanosis or edema. NEURO: Alert and oriented to person, follows commands PLAN GI & NUTRITION: Continue nutritional support Aspirations precautions Prokinetic agents and laxatives as needed KIDNEYS & ELECTROLYTES: Strict monitoring of intake and output NEURO: Minimize central acting medications as possible. Fall Precautions. Well lighted room through the day and minimize interruptions through the night to prevent acute delirium. PULMONARY: Supplemental 02 as needed Titrate Fio2 to keep Spo2 > or = 90% DuoNebs and CPT as needed CARDIOVASCULAR: Follow hemodynamics. Titrate vasopressor to keep MAP >65 or systolic blood pressure >95mmHg ENDOCRINE: Maintain blood glucose between 100-180 at all times. Insulin sliding scale for blood glucose management RENAL: Avoid nephrotoxic agents INFECTIOUS DISEASE: Trend temperature. Hull-culture if febrile. HEMATOLOGY & COAGULATION: Monitor H&H. Keep Hgb > 7 Transfuse 1 unit of PRBC for Hgb < 7 Watch for any signs and symptoms of bleeding SKIN: Pressure ulcer prevention per facility protocol Total time spent in the care of this patient greater than 40 minutes, this excludes any time spent on procedures teaching or education. ATTESTATION BY PHYSICIAN The patient has been seen and evaluated, the case has been discussed with the PA, I agree with the clinical findings and plan of care. Vitals/Labs Vital Signs Date Time Temp Pulse Resp B/P (MAP) Pulse Ox O2 Delivery O2 Flow Rate FiO2 07/22/25 04:15 83 12 110/73 (85) 90 104/51 (68) 07/22/25 04:00 98.2 07/22/25 04:00 Room Air* 0 N/A Non-Rebreather+ Laboratory Tests 07/22/25 04:20 Medications Current Medications Sodium Chloride 1,000 ml @ 0 mls/hr ONCE ONCE IV; Start 07/20/25 at 18:30; Stop 07/20/25 at 18:31; Status DC Piperacillin Sod/ Tazobactam Sod 50 ml @ 200 mls/hr ONCE STAT IVPB Last administered on 07/20/25at 20:32; Start 07/20/25 at 19:15; Stop 07/20/25 at 19:29; Status DC Sodium Chloride 2,109 ml @ 703 mls/hr ONCE ONCE IV Last administered on 07/20/25at 20:28; Start 07/20/25 at 19:30; Stop 07/20/25 at 22:29; Status DC Iohexol 75 ml STK-MED ONCE IV; Start 07/20/25 at 20:31; Stop 07/20/25 at 20:31; Status DC Vancomycin HCl 1 gm ONCE STAT IV Last administered on 07/20/25at 22:06; Start 07/20/25 at 21:23; Stop 07/20/25 at 21:26; Status DC Morphine Sulfate 4 mg ONCE ONCE IVP Last administered on 07/20/25at 23:15; Start 07/20/25 at 23:30; Stop 07/20/25 at 23:31; Status DC Ondansetron HCl 4 mg ONCE ONCE IVP Last administered on 07/20/25at 23:14; Start 07/20/25 at 23:30; Stop 07/20/25 at 23:31; Status DC Norepinephrine 250 ml @ 0 mls/hr PROTOCOL IV Last administered on 07/21/25at 10:56; Start 07/20/25 at 23:30; Stop 08/19/25 at 23:29 Piperacillin Sod/ Tazobactam Sod 3.375 gm Q12H IV Last administered on 07/22/25at 11:46; Start 07/21/25 at 00:00; Stop 07/31/25 at 00:00 Acetaminophen 650 mg Q6H PRN RC; Start 07/21/25 at 00:00; Stop 08/20/25 at 00:00 Pantoprazole Sodium 40 mg DAILY IV Last administered on 07/22/25at 09:42; Start 07/21/25 at 09:00; Stop 08/20/25 at 08:59 Ondansetron HCl 4 mg Q6H PRN IV; Start 07/21/25 at 00:00; Stop 07/21/25 at 13:18; Status DC Morphine Sulfate 2 mg Q4H PRN IVP Last administered on 07/21/25at 04:46; Start 07/21/25 at 00:30; Stop 07/21/25 at 13:18; Status DC Lactated Ringer's 1,000 ml @ 75 mls/hr [id number] IV Last administered on 07/21/25at 02:57; Start 07/21/25 at 00:00; Stop 07/21/25 at 13:17; Status DC Insulin Human Regular INSULIN SLIDING SCAL... ACHS SQ; Start 07/21/25 at 07:30; Stop 08/20/25 at 07:29 Vasopressin 20 units/Sodium Chloride 100 ml @ 0 mls/hr PROTOCOL IV Last administered on 07/21/25at 00:10; Start 07/21/25 at 00:30; Stop 08/20/25 at 00:29 Vasopressin 20 units STK-MED ONCE .ROUTE; Start 07/21/25 at 00:10; Stop 07/21/25 at 00:11; Status DC Magnesium Sulfate 50 ml @ 0 mls/hr PROTOCOL PRN IV; Start 07/21/25 at 07:00; Stop 08/20/25 at 06:59 Acetaminophen 100 ml @ As Directed STK-MED ONCE .ROUTE; Start 07/21/25 at 09:42; Stop 07/21/25 at 09:42; Status DC Famotidine 20 mg STK-MED ONCE IV; Start 07/21/25 at 09:42; Stop 07/21/25 at 09:42; Status DC Albumin Human 500 ml @ As Directed STK-MED ONCE IV; Start 07/21/25 at 09:45; Stop 07/21/25 at 09:45; Status DC Phenylephrine HCl 10 mg STK-MED ONCE IV; Start 07/21/25 at 09:48; Stop 07/21/25 at 09:48; Status DC Dexamethasone Sodium Phosphate 10 mg STK-MED ONCE .ROUTE; Start 07/21/25 at 09:52; Stop 07/21/25 at 09:52; Status DC Ondansetron HCl 4 mg STK-MED ONCE .ROUTE; Start 07/21/25 at 09:52; Stop 07/21/25 at 09:52; Status DC Lidocaine HCl 100 mg STK-MED ONCE .ROUTE; Start 07/21/25 at 09:52; Stop 07/21/25 at 09:52; Status DC Succinylcholine Chloride 200 mg STK-MED ONCE .ROUTE; Start 07/21/25 at 09:53; Stop 07/21/25 at 09:53; Status DC Glycopyrrolate 1 mg STK-MED ONCE .ROUTE; Start 07/21/25 at 09:53; Stop 07/21/25 at 09:53; Status DC Fentanyl Citrate 100 mcg STK-MED ONCE .ROUTE; Start 07/21/25 at 09:54; Stop 07/21/25 at 09:54; Status DC Propofol 200 mg STK-MED ONCE IV; Start 07/21/25 at 09:54; Stop 07/21/25 at 09:54; Status DC Neostigmine Methylsulfate 10 mg STK-MED ONCE IV; Start 07/21/25 at 09:54; Stop 07/21/25 at 09:54; Status DC Rocuronium [place] 50 mg STK-MED ONCE .ROUTE; Start 07/21/25 at 09:54; Stop 07/21/25 at 09:54; Status DC Ketamine HCl 50 mg STK-MED ONCE .ROUTE; Start 07/21/25 at 09:55; Stop 07/21/25 at 09:56; Status DC Epinephrine HCl 1 mg STK-MED ONCE .ROUTE; Start 07/21/25 at 10:03; Stop 07/21/25 at 10:03; Status DC Midazolam HCl 2 mg STK-MED ONCE .ROUTE; Start 07/21/25 at 10:05; Stop 07/21/25 at 10:05; Status DC Indocyanine Green 25 mg STK-MED ONCE IJ; Start 07/21/25 at 10:49; Stop 07/21/25 at 10:49; Status DC Ephedrine Sulfate 50 mg STK-MED ONCE .ROUTE; Start 07/21/25 at 11:17; Stop 07/21/25 at 11:17; Status DC Bupivacaine HCl 5 mg STK-MED ONCE .ROUTE Last administered on 07/21/25at 12:14; Start 07/21/25 at 11:49; Stop 07/21/25 at 11:49; Status DC Sodium Bicarbonate 200 ml @ As Directed STK-MED ONCE .ROUTE; Start 07/21/25 at 12:19; Stop 07/21/25 at 12:19; Status DC Fentanyl Citrate 100 mcg STK-MED ONCE .ROUTE; Start 07/21/25 at 12:23; Stop 07/21/25 at 12:23; Status DC Phytonadione 10 mg STK-MED ONCE .ROUTE; Start 07/21/25 at 13:05; Stop 07/21/25 at 13:05; Status DC Lactated Ringer's 1,000 ml @ 75 mls/hr [id number] IV Last administered on 07/22/25at 03:00; Start 07/21/25 at 13:30; Stop 08/20/25 at 13:29 Morphine Sulfate 4 mg Q3H PRN IV Last administered on 07/22/25at 09:57; Start 07/21/25 at 13:30; Stop 07/28/25 at 13:29 Ondansetron HCl 4 mg Q4H PRN IVP; Start 07/21/25 at 13:30; Stop 08/20/25 at 13:29 Fentanyl Citrate 100 mcg STK-MED ONCE .ROUTE; Start 07/21/25 at 13:26; Stop 07/21/25 at 13:26; Status DC Sodium Bicarbonate 150 meq/Sodium Chloride 1,150 ml @ 0 mls/hr Q0M IVP; Start 07/21/25 at 14:00; Stop 08/20/25 at 13:59 Sodium Bicarbonate 100 meq ONCE ONCE IV; Start 07/21/25 at 14:00; Stop 07/21/25 at 14:23; Status DC Metronidazole/ Sodium Chloride 500 mg Q8H IV; Start 07/21/25 at 14:00; Stop 07/21/25 at 13:40; Status DC Fluconazole/ Sodium Chloride 200 mg Q24H IVPB Last administered on 07/21/25at 21:03; Start 07/21/25 at 21:00; Stop 08/20/25 at 20:59 Pharmacy Profile Note 1 each ONCE MISC; Start 07/21/25 at 15:30; Stop 07/21/25 at 15:16; Status DC Thiamine HCl 100 mg/Sodium Chloride 50 ml @ 100 mls/hr Q24H IM; Start 07/21/25 at 15:30; Stop 07/21/25 at 16:25; Status DC Sodium Bicarbonate 100 meq ONCE ONCE IV Last administered on 07/21/25at 16:42; Start 07/21/25 at 16:30; Stop 07/21/25 at 16:31; Status DC Thiamine HCl 100 mg DAILY IVP; Start 07/22/25 at 21:00; Stop 08/21/25 at 20:59 JARED BASURTO Jul 22, 2025 12:05
--- NOTE | 2025-07-22 12:08 | NUR ---
DCP: HOME met with pt who currently lives at her home, a mobile home with ramp. Daughter Jennifer Wood [phone] and pt's grandson. Pt has Indigent Program assistance, has no govt assistance. Prior to admission, pt was independent of all ADLS, uses a cane as needed, does not qualify for provider services, PCP is Danny Olviera at [facility] for medical care and meds. Pt states she will go to her mother's at ar, which will allow her easier access in home. Daughter Jennifer to go with pt and assist pt as needed. Addendum: 07/22/25 at 1230 by FLY WILKINS SS Amended: Links added.
--- NOTE | 2025-07-22 13:54 | HMCIMG ---
CHEST 1VW REASON: sob COMPARISON: Study from 07/21/2025 is available. FINDINGS: Single view of the chest was obtained. Lungs are clear. Heart size is normal. There is no pulmonary vascular congestion. There is a right-sided PIC catheter with tip in superior vena cava. There is a nasogastric tube with the tip in the fundus of the stomach. Mediastinum and bony thorax appear unremarkable. IMPRESSION: 1. No acute cardiopulmonary process 2. The support lines are in satisfactory position..
--- NOTE | 2025-07-22 16:51 | PN ---
GENERAL SURGERY PROGRESS NOTE Date/Time Patient Seen: [07/22/2025 12:30 PM ] Problem List: [ ] Interval History: [55-year-old female, postop day 1, Diagnostic laparoscopy, abdominal washout, drain placement and diverting loop ileostomy creation by Dr. Gann Expected soreness over surgical incisions but tolerable as per patient NG tube in place at low intermittent wall suction with about 100 cc output since 7:00 a.m. 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 ACHS SQ 07/21/25 07:30 08/20/25 07:29 Lactated Ringer's 1,000 ml @ 75 mls/hr [id number] IV 07/21/25 00:00 07/21/25 13:17 DC 07/21/25 02:57 75 MLS/HR Lactated Ringer's 1,000 ml @ 75 mls/hr [id number] IV 07/21/25 13:30 08/20/25 13:29 07/22/25 15:27 75 MLS/HR Metronidazole/ Sodium Chloride (flaGYL) 500 mg Q8H IV 07/21/25 14:00 07/21/25 13:40 DC Norepinephrine 250 ml @ 0 mls/hr PROTOCOL IV 07/20/25 23:30 08/19/25 23:29 07/21/25 10:56 18.45 MLS/HR Pantoprazole Sodium (PROTonix 40MG INJ) 40 mg DAILY IV 07/21/25 09:00 08/20/25 08:59 07/22/25 09:42 40 MG Pharmacy Profile Note (Pharmacy Communication) 1 each ONCE MISC 07/21/25 15:30 07/21/25 15:16 DC Piperacillin Sod/ Tazobactam Sod 50 ml @ 200 mls/hr ONCE STAT IVPB 07/20/25 19:15 07/20/25 19:29 DC 07/20/25 20:32 200 MLS/HR Piperacillin Sod/ Tazobactam Sod (Zosyn 3.375gm+NS 50ml) 3.375 gm Q12H IV 07/21/25 00:00 07/31/25 00:00 07/22/25 11:46 3.375 GM Sodium Bicarbonate 150 meq/Sodium Chloride 1,150 ml @ 0 mls/hr Q0M IVP 07/21/25 14:00 08/20/25 13:59 Thiamine HCl (Vitamin B-1) 100 mg DAILY IVP 07/22/25 21:00 08/21/25 20:59 Thiamine HCl 100 mg/Sodium Chloride 50 ml @ 100 mls/hr Q24H IM 07/21/25 15:30 07/21/25 16:25 DC Vancomycin HCl (Vancomycin 1g/ 250ml Kit) 1 gm ONCE STAT IV 07/20/25 21:23 07/20/25 21:26 DC 07/20/25 22:06 1 GM Vasopressin 20 units/Sodium Chloride 100 ml @ 0 mls/hr PROTOCOL IV 07/21/25 00:30 08/20/25 00:29 07/21/25 00:10 9 MLS/HR Physical Examination: GENERAL: [No acute distress, female, comfortably resting in bed, family at bedside.] HEAD: [Normocephalic.] EYES: [Normal conjunctiva l.] ENT: [Hearing grossly intact.] NECK: [Supple.] LUNGS: [Clear breath sounds bilaterally] HEART: [Normal rate and rhythm.] VASC: [Peripheral pulses +2 bilaterally.] ABD: [Bowel sounds normal, soft, nondistended, ileostomy with healthy functioning stoma, surgical incisions with edges well approximated with Dermabond, no erythema or drainage, CHRIS in place with serosanguineous output.] : [Indwelling Dueñas catheter in place] EXT: [No edema.] SKIN: [No rashes or lesions noted.] NEURO: [Awake, alert, and oriented x3. No focal sensory or strength deficits noted.] Vital Signs (last 8hr) Date Time Temp Pulse Resp B/P (MAP) Pulse Ox O2 Delivery O2 Flow Rate FiO2 07/22/25 16:00 98.6 79 19 127/77 (94) 95 153/100 (117) 07/22/25 15:00 71 15 120/80 (93) 93 157/101 (119) 07/22/25 14:00 77 13 128/76 (93) 92 165/104 (124) 07/22/25 13:00 76 20 117/71 (86) 94 154/99 (117) 07/22/25 12:00 98.4 78 16 130/73 (92) 93 111/58 (75) 07/22/25 12:00 95 Room Air* 0 N/A Non-Rebreather+ 07/22/25 11:00 79 21 118/59 (78) 95 07/22/25 10:00 82 28 121/59 (79) 95 07/22/25 09:00 80 12 118/59 (78) 92 Laboratory: [ ] Hematology Labs: Test 07/22/25 04:20 07/20/25 18:46 Range/Units White Blood Count 13.3 #H 4.8-10.8 K/uL Red Blood Count 3.31 L 4.00-5.50 MIL/uL Hemoglobin 9.8 L 12.0-16.0 g/dL Hematocrit 30.9 L 36-48 % Mean Corpuscular Volume 93.4 79-99 fL Mean Corpuscular Hemoglobin 29.6 27.0-33.0 pg Mean Corpuscular Hemoglobin Concent 31.7 L 32.0-36.0 g/dL Red Cell Distribution Width 17.7 H 11.0-15.5 % Platelet Count 197 # 130-400 K/uL Mean Platelet Volume 9.9 7.5-10.5 fL Immature Granulocyte % (Auto) 2.8 H 0-1 % Neutrophils (%) (Auto) 82.4 H 40.0-77.0 % Lymphocytes (%) (Auto) 7.3 L 21.0-51.0 % Monocytes (%) (Auto) 5.6 3.0-13.0 % Eosinophils (%) (Auto) 1.5 0.0-8.0 % Basophils (%) (Auto) 0.4 0.0-5.0 % Neutrophils # (Auto) 11.0 H 1.8-7.7 K/uL Lymphocytes # (Auto) 1.0 1.0-4.8 K/uL Monocytes # (Auto) 0.8 0.1-1.0 K/uL Eosinophils # (Auto) 0.20 0.00-0.70 K/uL Basophils # (Auto) 0.06 0.00-0.20 K/uL Absolute Immature Granulocyte (auto 0.38 0-1 K/uL Nucleated Red Blood Cells 0.0 0.0-0.19 % White Cell Morphology Comment See comments Chemistry Labs: Test 07/22/25 15:31 07/22/25 11:57 07/22/25 04:20 07/21/25 05:45 Range/Units Whole Blood Glucose 147 H 70-110 MG/DL Ammonia 26 11-32 umol/L Sodium Level 142 136-145 mmol/L Potassium Level 3.8 3.5-5.1 mmol/L Chloride Level 105 101-111 mmol/L Carbon Dioxide Level 20 L 21-32 mmol/L Blood Urea Nitrogen 36 H 7-18 mg/dL Creatinine 1.4 H 0.5-1.0 mg/dL Glomerular Filtration Rate Calc 44 >90 mL/min Random Glucose 141 H 70-105 mg/dL Uric Acid 6.4 2.6-7.2 mg/dL Total Calcium 7.6 L 8.5-10.1 mg/dL Phosphorus Level 4.1 2.5-4.9 mg/dL Magnesium Level 1.90 1.80-2.40 mg/dL Total Bilirubin 0.7 0.2-1.0 mg/dL Aspartate Amino Transf (AST/SGOT) 23 10-37 U/L Alanine Aminotransferase (ALT/SGPT) 12 12-78 U/L Alkaline Phosphatase 108 50-136 U/L Total Protein 5.0 L 6.0-8.3 g/dL Albumin 1.8 L 3.5-5.0 g/dL Thyroid Stimulating Hormone (TSH) 0.27 L 0.36-3.74 uIU/mL Lactic Acid Level 3.4 H 0.8-2.5 mmol/L Test 07/21/25 00:25 07/20/25 18:46 Range/Units Procalcitonin 10.32 H 0.05-0.5 ng/mL Hemoglobin A1c 5.5 4.0-6.0 % Estimated Average Glucose (eAG) 111 70-126 mg/dL Troponin I High Sensitivity 11 4-50 ng/L B-Type Natriuretic Peptide 68 0-100 pg/mL Lipase 11 L 16-77 U/L Coagulation Labs: Test 07/21/25 05:45 Range/Units Prothrombin Time 15.6 H 9.6-11.6 SEC Prothromb Time International Ratio 1.54 H 0.85-1.15 Activated Partial Thromboplast Time 37.0 H 26.3-35.5 SEC Diagnostics / Radiology: [Copy/Paste Echos/Imaging Report here] Impression and Plan: [55-year-old female, postop day 1., diagnostic laparoscopy, abdominal washout, drain placement and diverting loop ileostomy creation by Dr. Gann WBCs trending down Stable H&H Decreased output from NG tube at LIWS As ordered by Dr. Gann when I spoke with her she may start clear liquids Recommend clamping NG tube and start patient on clear liquids today, DO NOT advance diet If patient tolerates clear liquids without any nausea or vomiting, may remove NG tube later today or tonight If patient starts having nausea or vomiting, reconnect NG tube to low intermittent wall suction Continue close monitoring of output from CHRIS Continue with IV fluids and IV antibiotics Repeat labs in a.m. Surgical team will continue to follow closely Dr. Gann has been updated on patient's status, thank you for allowing us to participate in patient care Time spent reviewing chart, evaluating patient and dictating plan of care greater than [address] Gann updated on patient's status ] ATTESTATION BY PHYSICIAN I have seen and examined the patient. I reviewed the documentation, medical decision making, and treatment plan as noted by the mid-level provider above. I agree with the findings and plan of care. MD LEANA ISRAEL [facility] Jul 22, 2025 16:51
--- NOTE | 2025-07-22 17:41 | PN ---
INFECTIOUS DISEASE PROGRESS NOTE Date of Service: Jul 22, 2025 SUBJECTIVE: This is a 55 year old female patient with a history of a recent colovesical fistula repair with sigmoid colon resection and anastomosis on 07/09/2025 who comes in today with a chief complaint of generalized. A CT of the abdomen and pelvis was done on admission which showed moderate small-bowel enteritis with free air in the upper abdomen suggesting perforated bowel versus surgical changes as well as ascites. General surgery was consulted and patient underwent a diagnostic laparoscopy, abdominal washout, ileostomy creation and CHRIS drain placement yesterday. Patient has been started on fluconazole and and Zosyn. Patient is afebrile this morning, temperature is 97.9 with a WBC of 13.3 today which is down from 25.3 yesterday. Large amount of serous drainage noted on the CHRIS drain. We will continue to monitor patient. PHYSICAL EXAM EYES: Anicteric. Pupils equal and reactive. HENT: No oral thrush seen, moist Oral mucosa NECK: Supple, no JVD or thyromegaly. LUNGS: Good air entry. No rales, no rhonchi. CARDIOVASCULAR: S1, S2 regular. No murmur heard. ABDOMEN: Soft, non tender, bowel sounds present, no organomegaly. CHRIS drain. Ileostomy creation. CENTRAL NERVOUS SYSTEM: Awake, alert, oriented x 3. SKIN: No rashes, no swelling. LYMPHATICS: No peripheral lymphadenopathy. MUSCULOSKELETAL: No joint swelling, erythema or tenderness. EXTREMITIES: No cyanosis or clubbing BACK: No deformity, no pressure ulcer. GENITOURINARY: No dysuria or hematuria. Dueñas catheter. Vital Sign (Last 12 Hours) 07/22/25 07/22/25 07/22/25 07/22/25 07:00 08:00 08:00 09:00 Temp 97.9 Pulse 78 82 80 Resp 18 15 12 B/P (MAP) 106/52 (70) 110/55 (73) 118/59 (78) Pulse Ox 95 94 95 92 O2 Delivery Room Air* Non-Rebreather+ O2 Flow Rate 0 FiO2 N/A 07/22/25 07/22/25 07/22/25 07/22/25 10:00 11:00 12:00 12:00 Temp 98.4 Pulse 82 79 78 Resp 28 21 16 B/P (MAP) 121/59 (79) 118/59 (78) 130/73 (92) 111/58 (75) Pulse Ox 95 95 95 93 O2 Delivery Room Air* Non-Rebreather+ O2 Flow Rate 0 FiO2 N/A 07/22/25 07/22/25 07/22/25 07/22/25 13:00 14:00 15:00 16:00 Temp 98.6 Pulse 76 77 71 79 Resp 20 13 15 19 B/P (MAP) 117/71 (86) 128/76 (93) 120/80 (93) 127/77 (94) 154/99 (117) 165/104 (124) 157/101 (119) 153/100 (117) Pulse Ox 94 92 93 95 Intake & Output (last 24hrs) 07/21/25 07/21/25 07/22/25 15:00 23:00 07:00 Intake Total 598.2 ml 852.0 ml 689.5 ml Output Total 375 ml 1270 ml 1270 ml Balance 223.2 ml -418.0 ml -580.5 ml LABS: Laboratory: Test 07/22/25 15:31 07/22/25 11:57 07/22/25 04:20 07/21/25 16:09 Range/Units Whole Blood Glucose 147 H 70-110 MG/DL Ammonia 26 11-32 umol/L White Blood Count 13.3 #H 4.8-10.8 K/uL Red Blood Count 3.31 L 4.00-5.50 MIL/uL Hemoglobin 9.8 L 12.0-16.0 g/dL Hematocrit 30.9 L 36-48 % Mean Corpuscular Volume 93.4 79-99 fL Mean Corpuscular Hemoglobin 29.6 27.0-33.0 pg Mean Corpuscular Hemoglobin Concent 31.7 L 32.0-36.0 g/dL Red Cell Distribution Width 17.7 H 11.0-15.5 % Platelet Count 197 # 130-400 K/uL Mean Platelet Volume 9.9 7.5-10.5 fL Immature Granulocyte % (Auto) 2.8 H 0-1 % Neutrophils (%) (Auto) 82.4 H 40.0-77.0 % Lymphocytes (%) (Auto) 7.3 L 21.0-51.0 % Monocytes (%) (Auto) 5.6 3.0-13.0 % Eosinophils (%) (Auto) 1.5 0.0-8.0 % Basophils (%) (Auto) 0.4 0.0-5.0 % Neutrophils # (Auto) 11.0 H 1.8-7.7 K/uL Lymphocytes # (Auto) 1.0 1.0-4.8 K/uL Monocytes # (Auto) 0.8 0.1-1.0 K/uL Eosinophils # (Auto) 0.20 0.00-0.70 K/uL Basophils # (Auto) 0.06 0.00-0.20 K/uL Absolute Immature Granulocyte (auto 0.38 0-1 K/uL Nucleated Red Blood Cells 0.0 0.0-0.19 % Sodium Level 142 136-145 mmol/L Potassium Level 3.8 3.5-5.1 mmol/L Chloride Level 105 101-111 mmol/L Carbon Dioxide Level 20 L 21-32 mmol/L Blood Urea Nitrogen 36 H 7-18 mg/dL Creatinine 1.4 H 0.5-1.0 mg/dL Glomerular Filtration Rate Calc 44 >90 mL/min Random Glucose 141 H 70-105 mg/dL Uric Acid 6.4 2.6-7.2 mg/dL Total Calcium 7.6 L 8.5-10.1 mg/dL Phosphorus Level 4.1 2.5-4.9 mg/dL Magnesium Level 1.90 1.80-2.40 mg/dL Total Bilirubin 0.7 0.2-1.0 mg/dL Aspartate Amino Transf (AST/SGOT) 23 10-37 U/L Alanine Aminotransferase (ALT/SGPT) 12 12-78 U/L Alkaline Phosphatase 108 50-136 U/L Total Protein 5.0 L 6.0-8.3 g/dL Albumin 1.8 L 3.5-5.0 g/dL Thyroid Stimulating Hormone (TSH) 0.27 L 0.36-3.74 uIU/mL Blood Gas Specimen Type Arterial Arterial Blood pH 7.353 7.350-7.450 Arterial Blood Partial Pressure CO2 36 32-45 mmHg Arterial Blood Partial Pressure O2 142.4 H 83.0-108.0 mmHg Arterial Blood HCO3 19.3 L 21.0-28.0 mmol/L Arterial Blood Oxygen Saturation 98.6 H 94.0-98.0 % Arterial Blood Base Excess -5.5 L -2.0-3.0 mmol/L Hemoglobin (Blood Gas) 11.2 L 12.0-16.0 g/dL Sodium (Blood Gas) 137 136-145 MMOL/L Bedside Potassium (Blood Gas) 4.0 3.4-4.5 MMOL/L Bedside Chloride (Blood Gas) 107 98-107 MMOL/L Bedside Glucose (Blood Gas) 92 65-95 MG/DL Bedside Ionized Calcium (Blood Gas) 0.99 L 1.15-1.33 MMOL/L Bedside Lactic Acid (Blood Gas) 2.30 H 0.36-0.75 MMOL/L Blood Gas Temperature 37.0 35.5-37.0 CELSIUS Blood Gas Vent Mode NRB ROOM AIR FiO2 100.0 % Blood Gas Specimen Comment KRISHNA COLEMAN Test 07/21/25 05:45 07/21/25 00:25 07/21/25 00:11 07/20/25 18:46 Range/Units Prothrombin Time 15.6 H 9.6-11.6 SEC Prothromb Time International Ratio 1.54 H 0.85-1.15 Activated Partial Thromboplast Time 37.0 H 26.3-35.5 SEC Lactic Acid Level 3.4 H 0.8-2.5 mmol/L Procalcitonin 10.32 H 0.05-0.5 ng/mL Urine Color YELLOW YELLOW Urine Appearance CLOUDY H CLEAR Urine pH 5.5 5.0-8.0 Urine Specific Lowry >1.050 1.001-1.031 Urine Protein 30 H NEGATIVE mg/dL Urine Glucose (UA) NEGATIVE NEGATIVE mg/dL Urine Ketones NEGATIVE NEGATIVE mg/dL Urine Occult Blood +- (TRACE) H NEGATIVE Urine Nitrate NEGATIVE NEGATIVE Urine Bilirubin NEGATIVE NEGATIVE mg/dL Urine Urobilinogen 0.2 0.2-1.0 mg/dL Urine Leukocyte Esterase NEGATIVE NEGATIVE Regino/uL Urine RBC 11-25 H 0-1 /HPF Urine WBC 26-50 H 0-1 /HPF Urine Squamous Epithelial Cells Few 0-2 /HPF Urine Bacteria RARE None Seen /HPF Urine Osmolality 335 50-1200 mOsm/kg Urine Random Creatinine 132.17 30-135 mg/dL Urine Random Sodium < 13 L 40-220 mmol/l Urine Random Potassium 32 25-125 mmol/L Urine Random Chloride < 21 L 110-250 mmol/L SARS-CoV-2 Antigen (Rapid) PRESUMPTIVE NEGATIVE NEGATIVE White Cell Morphology Comment See comments Hemoglobin A1c 5.5 4.0-6.0 % Estimated Average Glucose (eAG) 111 70-126 mg/dL Troponin I High Sensitivity 11 4-50 ng/L B-Type Natriuretic Peptide 68 0-100 pg/mL Lipase 11 L 16-77 U/L DIAGNOSTICS / RADIOLOGY: PATIENT: DALLAS BUCHANAN MR#: [id number] : 1970 SEX: F AGE: 55 LOCATION: [facility] ORDER 14 STATUS: REG ER REPORT#: [id number] SERVICE 12 REASON: Abdominal Pain ORDERING PHYSICIAN: ALHAJI SHINE NP PROCEDURE: ABD PEL W - CT ABDOMEN/PELVIS W/CONTRAST ADDENDUM REPORT ADDENDUM: Results were shared by telephone at 23:23 pm on 07-20-2025 and acknowledged by Pt nurse Ms. SHIN BOYKIN. /[place] EXAM: CT Abdomen and Pelvis with Intravenous Contrast CLINICAL HISTORY: 55-year-old female with abdominal pain. TECHNIQUE: Axial computed tomography images of the abdomen and pelvis with intravenous contrast. Dose reduction technique was used including one or more of the following: automated exposure control, adjustment of mA and kV according to patient size, and/or iterative reconstruction. CONTRAST: Omnipaque 350, 75 mL COMPARISON: None provided. FINDINGS: LUNG BASES: Atelectasis and scarring at the lung bases. LIVER: Unremarkable. GALLBLADDER AND BILE DUCTS: Tiny gallstone seen. PANCREAS: Unremarkable. SPLEEN: Unremarkable. ADRENAL GLANDS: Unremarkable. KIDNEYS, URETERS, AND BLADDER: Dueñas catheter seen in the bladder lumen. No hydronephrosis or nephrolithiasis. No ureteral calculi. STOMACH AND BOWEL: Edema or loops of small bowel suggesting moderate small bowel enteritis. Free air in the upper abdomen is seen, suggesting perforated bowel. No obstruction. APPENDIX: No CT evidence for appendicitis. PERITONEUM: Moderate ascites in the abdomen and pelvis. No free air under the diaphragm. LYMPH NODES: No lymphadenopathy. REPRODUCTIVE: Unremarkable as visualized. VASCULATURE: No aortic aneurysm. ABDOMINAL WALL AND SOFT TISSUES: There is air in the subcutaneous soft tissue seen anteriorly, suggesting recent postsurgical changes; please correlate with surgical history. BONES: No fracture or suspicious osseous abnormality. IMPRESSION: 1. Moderate small bowel enteritis with free air in the upper abdomen, suggesting perforated bowel versus post surgical changes. No obstruction. 2. Moderate ascites in the abdomen and pelvis. 3. Air in the subcutaneous soft tissue anteriorly, suggesting recent postsurgical changes; please correlate with surgical history. /[place] DICTATED BY: EDWIGE LEDESMA MD DATE: 07/20/25 9433 ASSESSMENT: Hypoxic respiratory failure requiring oxygen support. Septic shock. Generalized peritonitis. Suspected bowel perforation, s/p diagnostic laparoscopy, abdominal washout, ileostomy creation and CHRIS drain placement on 07/21/2025. Leukocytosis. Acute renal failure. Diabetes mellitus. Recent colovesical fistula repair with sigmoid colon resection and anastomosis on 07/09/2025 PLAN: Continue fluconazole. Continue Zosyn. Continue critical care support. Continue pain management. Avoid nephrotoxic medications. We will follow up on the final culture results. This case was reviewed and discussed with my supervising physician Dr. Roger and the above assessment and plan was formulated and agreed upon. ATTESTATION BY PHYSICIAN I have seen and examined the patient. I reviewed the documentation, medical decision making, and treatment plan as noted by the mid-level provider above. I agree with the findings and plan of care. AMIE ROGER MD, MIRTA L [facility] Jul 22, 2025 17:41
--- NOTE | 2025-07-22 18:19 | NUR ---
NG tube removed as per MD orders. Tube removed completely without issue. No bleeding noted. Patient tolerated removal well. Will continue to monitor patient.
[2025-07-22] MEDS: THIAMINE HCL 100 MG/ML 2ML VIAL IVP SCH (20:11)
[2025-07-23] VITALS (51 sets, daily range): BP systolic 100–173; BP diastolic 40–92; PULSE 48–65; RESP 10–49; TEMP 97.5–98.1; O2SAT 95–97
[2025-07-23 04:13] LABS: IMMATURE GRANULOCYTE ABSOLUTE 0.31 K/uL (0-1); NUCLEATED RED BLOOD CELLS 0.0 % (0.0-0.19); PLATELET COUNT (AUTO) 138 K/uL (130-400); RED BLOOD CELL COUNT(AUTO) 2.91 MIL/uL (4.00-5.50); RED CELL DISTRIBUTION WIDTH 18.0 % (11.0-15.5); WHITE BLOOD COUNT (AUTO) 8.2 K/uL (4.8-10.8)
[2025-07-23 04:37] LABS: ASPARTATE AMINOTRANSFERASE 28.0 U/L (10-37); CREATININE 1.6 mg/dL (0.5-1.0); GLOMERULAR FILTR. RATE CALC 37.0 mL/min (>90); GLUCOSE,RANDOM 152.0 mg/dL (70-105); PHOSPHORUS 4.7 mg/dL (2.5-4.9); SODIUM SERUM 138.0 mmol/L (136-145); TOTAL PROTEIN, SERUM 5.0 g/dL (6.0-8.3); UREA NITROGEN, BLOOD 55.0 mg/dL (7-18)
--- NOTE | 2025-07-23 09:52 | PN ---
SUBJECTIVE: A 55-year-old female with a history of diabetes mellitus and hypertension. The patient initially admitted to the hospital with acute renal failure. The patient's renal function continues to slowly improve. The patient initially presented with perforated bowel. The patient with drain placement and diverting ileostomy. The patient has been weaned off all the pressors and she is being seen as a followup visit for all of the above. REVIEW OF SYSTEMS: CONSTITUTIONAL: She is feeling improved. HEENT: No change in vision. No change in hearing. CARDIOVASCULAR: No current chest pain or palpitations. PULMONARY: No shortness of breath. GASTROINTESTINAL: She has been started on a diet. MUSCULOSKELETAL: Complaints of weakness. PHYSICAL EXAMINATION: VITAL SIGNS: Blood pressure is 106/74, pulse 80. She is afebrile. GENERAL: She is a chronically ill female, much older than appearing. HEENT: Atraumatic. Pupils equal, round, and reactive to light. Oropharynx is without exudate. Nares are clear. NECK: There is no JVP. There is no thyromegaly. CARDIOVASCULAR: Regular. There is no S3 or S4 gallop. LUNGS: Coarse with equal thoracic movement. ABDOMEN: Soft, nondistended, nontender. EXTREMITIES: Reveal no clubbing or cyanosis. NEUROLOGICAL: She is awake. She is alert. She is oriented. LABORATORY DATA: Hemoglobin 8.6, hematocrit 26, white blood cell count 8000. Sodium 138, potassium 4, BUN 55, and creatinine is 1.6. IMPRESSION: 1. Acute on chronic renal failure. 2. History of cirrhosis with varices. 3. Diabetes mellitus. 4. Peritonitis. PLAN: The patient's creatinine continues to slowly improve. The patient has become much more hemodynamically stable. She has been weaned off all of the pressures. She remains on the broad spectrum IV antibiotics. Electrolytes have all been aggressively repleted. She has been started on a diet. We will continue to follow closely. All labs can be repeated in the morning. Patient and family at the bedside. Multiple questions were answered. TID: [id number] RECEIPT: [id number]
--- NOTE | 2025-07-23 13:46 | PN ---
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 Patient found to have an elevated white count, CT of the abdomen revealed a possible bowel perforation. Patient hypotensive started on vaso and levo along with antibiotics of Zosyn, patient's lactic was 4.7. Admitted to the ICU with surgical consultation. Patient seen and examined this morning in the ICU. Comfortable, on room air alert and oriented and no fevers. White count improving and lactic is down to 3.4. She has an elevated procalcitonin, surgical plan is to take the patient back to the OR. Interval history: Patient seen and examined, she is resting comfortably in bed, alert and oriented x4 On room air Off any pressors, no drips Tolerating a clear diet, a CHRIS with 450 out overnight Labs continued no growth Renal function improving Plan: Following surgical recs Diet per surgeon Continued antibiotics, follow cultures, I&Os Ammonia level Follow nephrology recs Code Status: Full Resuscitation GI & DVT Prophylaxis REVIEW OF SYSTEMS: General: No malaise or fever. Neurological: Comfortable HEENT: No nasal congestion or nasal secretion. Respiratory: No cough, shortness of breath, or wheezing Cardiac: No chest pain or palpitations. Gastrointestinal: No vomiting or diarrhea. Genitourinary: No dysuria hematuria. Skin: No rashes or lesions. Hematological: No bruises or bleeding. Musculoskeletal: No joint pains or arthralgias. Psychiatric: No depression or panic attacks. PHYSICAL EXAM: GENERAL: alert, weak, awake oriented x 3 HEENT: EOMI, Sclera non icteric, moist mucosa NECK: Supple, no JVD, trachea midline LUNGS: Clear breath sounds bilaterally. No wheezes HEART: Regular rate and rhythm. Normal S1 and S2, without murmurs ABD: Dressing stable, a CHRIS drain EXT: No clubbing cyanosis or edema. NEURO: Alert and oriented to person, follows commands PLAN GI & NUTRITION: Continue nutritional support Aspirations precautions Prokinetic agents and laxatives as needed KIDNEYS & ELECTROLYTES: Strict monitoring of intake and output NEURO: Minimize central acting medications as possible. Fall Precautions. Well lighted room through the day and minimize interruptions through the night to prevent acute delirium. PULMONARY: Supplemental 02 as needed Titrate Fio2 to keep Spo2 > or = 90% DuoNebs and CPT as needed CARDIOVASCULAR: Follow hemodynamics. Titrate vasopressor to keep MAP >65 or systolic blood pressure >95mmHg ENDOCRINE: Maintain blood glucose between 100-180 at all times. Insulin sliding scale for blood glucose management RENAL: Avoid nephrotoxic agents INFECTIOUS DISEASE: Trend temperature. Hull-culture if febrile. HEMATOLOGY & COAGULATION: Monitor H&H. Keep Hgb > 7 Transfuse 1 unit of PRBC for Hgb < 7 Watch for any signs and symptoms of bleeding SKIN: Pressure ulcer prevention per facility protocol Total patient critical care time 45 minutes excluding all procedures. ATTESTATION BY PHYSICIAN The patient has been seen and evaluated, the case has been discussed with the PA, I agree with the clinical findings and plan of care. Vitals/Labs Vital Signs Date Time Temp Pulse Resp B/P (MAP) Pulse Ox O2 Delivery O2 Flow Rate FiO2 07/23/25 11:00 65 23 110/67 (81) 97 106/80 (89) 07/23/25 08:09 Room Air* 0 N/A Non-Rebreather+ 07/23/25 08:05 98.1 Laboratory Tests 07/23/25 04:00 Medications Current Medications Sodium Chloride 1,000 ml @ 0 mls/hr ONCE ONCE IV; Start 07/20/25 at 18:30; Stop 07/20/25 at 18:31; Status DC Piperacillin Sod/ Tazobactam Sod 50 ml @ 200 mls/hr ONCE STAT IVPB Last administered on 07/20/25at 20:32; Start 07/20/25 at 19:15; Stop 07/20/25 at 19:29; Status DC Sodium Chloride 2,109 ml @ 703 mls/hr ONCE ONCE IV Last administered on 07/20/25at 20:28; Start 07/20/25 at 19:30; Stop 07/20/25 at 22:29; Status DC Iohexol 75 ml STK-MED ONCE IV; Start 07/20/25 at 20:31; Stop 07/20/25 at 20:31; Status DC Vancomycin HCl 1 gm ONCE STAT IV Last administered on 07/20/25at 22:06; Start 07/20/25 at 21:23; Stop 07/20/25 at 21:26; Status DC Morphine Sulfate 4 mg ONCE ONCE IVP Last administered on 07/20/25at 23:15; Start 07/20/25 at 23:30; Stop 07/20/25 at 23:31; Status DC Ondansetron HCl 4 mg ONCE ONCE IVP Last administered on 07/20/25at 23:14; Start 07/20/25 at 23:30; Stop 07/20/25 at 23:31; Status DC Norepinephrine 250 ml @ 0 mls/hr PROTOCOL IV Last administered on 07/21/25at 10:56; Start 07/20/25 at 23:30; Stop 08/19/25 at 23:29 Piperacillin Sod/ Tazobactam Sod 3.375 gm Q12H IV Last administered on 07/23/25at 12:21; Start 07/21/25 at 00:00; Stop 07/31/25 at 00:00 Acetaminophen 650 mg Q6H PRN RC; Start 07/21/25 at 00:00; Stop 08/20/25 at 00:00 Pantoprazole Sodium 40 mg DAILY IV Last administered on 07/23/25at 10:03; Start 07/21/25 at 09:00; Stop 08/20/25 at 08:59 Ondansetron HCl 4 mg Q6H PRN IV; Start 07/21/25 at 00:00; Stop 07/21/25 at 13:18; Status DC Morphine Sulfate 2 mg Q4H PRN IVP Last administered on 07/21/25at 04:46; Start 07/21/25 at 00:30; Stop 07/21/25 at 13:18; Status DC Lactated Ringer's 1,000 ml @ 75 mls/hr [id number] IV Last administered on 07/21/25at 02:57; Start 07/21/25 at 00:00; Stop 07/21/25 at 13:17; Status DC Insulin Human Regular INSULIN SLIDING SCAL... ACHS SQ Last administered on 07/22/25at 20:40; Start 07/21/25 at 07:30; Stop 08/20/25 at 07:29 Vasopressin 20 units/Sodium Chloride 100 ml @ 0 mls/hr PROTOCOL IV Last administered on 07/21/25at 00:10; Start 07/21/25 at 00:30; Stop 08/20/25 at 00:29 Vasopressin 20 units STK-MED ONCE .ROUTE; Start 07/21/25 at 00:10; Stop 07/21/25 at 00:11; Status DC Magnesium Sulfate 50 ml @ 0 mls/hr PROTOCOL PRN IV; Start 07/21/25 at 07:00; Stop 08/20/25 at 06:59 Acetaminophen 100 ml @ As Directed STK-MED ONCE .ROUTE; Start 07/21/25 at 09:42; Stop 07/21/25 at 09:42; Status DC Famotidine 20 mg STK-MED ONCE IV; Start 07/21/25 at 09:42; Stop 07/21/25 at 09:42; Status DC Albumin Human 500 ml @ As Directed STK-MED ONCE IV; Start 07/21/25 at 09:45; Stop 07/21/25 at 09:45; Status DC Phenylephrine HCl 10 mg STK-MED ONCE IV; Start 07/21/25 at 09:48; Stop 07/21/25 at 09:48; Status DC Dexamethasone Sodium Phosphate 10 mg STK-MED ONCE .ROUTE; Start 07/21/25 at 09:52; Stop 07/21/25 at 09:52; Status DC Ondansetron HCl 4 mg STK-MED ONCE .ROUTE; Start 07/21/25 at 09:52; Stop 07/21/25 at 09:52; Status DC Lidocaine HCl 100 mg STK-MED ONCE .ROUTE; Start 07/21/25 at 09:52; Stop 07/21/25 at 09:52; Status DC Succinylcholine Chloride 200 mg STK-MED ONCE .ROUTE; Start 07/21/25 at 09:53; Stop 07/21/25 at 09:53; Status DC Glycopyrrolate 1 mg STK-MED ONCE .ROUTE; Start 07/21/25 at 09:53; Stop 07/21/25 at 09:53; Status DC Fentanyl Citrate 100 mcg STK-MED ONCE .ROUTE; Start 07/21/25 at 09:54; Stop 07/21/25 at 09:54; Status DC Propofol 200 mg STK-MED ONCE IV; Start 07/21/25 at 09:54; Stop 07/21/25 at 09:54; Status DC Neostigmine Methylsulfate 10 mg STK-MED ONCE IV; Start 07/21/25 at 09:54; Stop 07/21/25 at 09:54; Status DC Rocuronium [place] 50 mg STK-MED ONCE .ROUTE; Start 07/21/25 at 09:54; Stop 07/21/25 at 09:54; Status DC Ketamine HCl 50 mg STK-MED ONCE .ROUTE; Start 07/21/25 at 09:55; Stop 07/21/25 at 09:56; Status DC Epinephrine HCl 1 mg STK-MED ONCE .ROUTE; Start 07/21/25 at 10:03; Stop 07/21/25 at 10:03; Status DC Midazolam HCl 2 mg STK-MED ONCE .ROUTE; Start 07/21/25 at 10:05; Stop 07/21/25 at 10:05; Status DC Indocyanine Green 25 mg STK-MED ONCE IJ; Start 07/21/25 at 10:49; Stop 07/21/25 at 10:49; Status DC Ephedrine Sulfate 50 mg STK-MED ONCE .ROUTE; Start 07/21/25 at 11:17; Stop 07/21/25 at 11:17; Status DC Bupivacaine HCl 5 mg STK-MED ONCE .ROUTE Last administered on 07/21/25at 12:14; Start 07/21/25 at 11:49; Stop 07/21/25 at 11:49; Status DC Sodium Bicarbonate 200 ml @ As Directed STK-MED ONCE .ROUTE; Start 07/21/25 at 12:19; Stop 07/21/25 at 12:19; Status DC Fentanyl Citrate 100 mcg STK-MED ONCE .ROUTE; Start 07/21/25 at 12:23; Stop 07/21/25 at 12:23; Status DC Phytonadione 10 mg STK-MED ONCE .ROUTE; Start 07/21/25 at 13:05; Stop 07/21/25 at 13:05; Status DC Lactated Ringer's 1,000 ml @ 75 mls/hr [id number] IV Last administered on 07/23/25at 06:47; Start 07/21/25 at 13:30; Stop 08/20/25 at 13:29 Morphine Sulfate 4 mg Q3H PRN IV Last administered on 07/23/25at 10:12; Start 07/21/25 at 13:30; Stop 07/28/25 at 13:29 Ondansetron HCl 4 mg Q4H PRN IVP; Start 07/21/25 at 13:30; Stop 08/20/25 at 13:29 Fentanyl Citrate 100 mcg STK-MED ONCE .ROUTE; Start 07/21/25 at 13:26; Stop 07/21/25 at 13:26; Status DC Sodium Bicarbonate 150 meq/Sodium Chloride 1,150 ml @ 0 mls/hr Q0M IVP; Start 07/21/25 at 14:00; Stop 08/20/25 at 13:59 Sodium Bicarbonate 100 meq ONCE ONCE IV; Start 07/21/25 at 14:00; Stop 07/21/25 at 14:23; Status DC Metronidazole/ Sodium Chloride 500 mg Q8H IV; Start 07/21/25 at 14:00; Stop 07/21/25 at 13:40; Status DC Fluconazole/ Sodium Chloride 200 mg Q24H IVPB Last administered on 07/22/25at 20:11; Start 07/21/25 at 21:00; Stop 08/20/25 at 20:59 Pharmacy Profile Note 1 each ONCE MISC; Start 07/21/25 at 15:30; Stop 07/21/25 at 15:16; Status DC Thiamine HCl 100 mg/Sodium Chloride 50 ml @ 100 mls/hr Q24H IM; Start 07/21/25 at 15:30; Stop 07/21/25 at 16:25; Status DC Sodium Bicarbonate 100 meq ONCE ONCE IV Last administered on 07/21/25at 16:42; Start 07/21/25 at 16:30; Stop 07/21/25 at 16:31; Status DC Thiamine HCl 100 mg DAILY IVP Last administered on 07/23/25at 10:03; Start 07/22/25 at 21:00; Stop 08/21/25 at 20:59 JARED BASURTO Jul 23, 2025 13:45
[2025-07-23] MEDS ORDERED: DIATR MEGLU/DIATRIZOATE SODIUM 30 ML BOTTLE ONE (15:13)
--- NOTE | 2025-07-23 15:56 | PN ---
[facility] PROGRESS NOTE Date of Service: Jul 23, 2025 Time of Service: 15:51 SUBJECTIVE: Ms. Gray is a 55-year-old female that was seen and examined today on 07/20/2025. Patient reports that she came to the emergency department with a chief complaint of abdominal pain. Onset was 07/09/2025. Location is all four quadrants. Duration is constant. Character is described as pressure and " like I have a lot of gas trapped. " there was no alleviating factors. There was no aggravating factors. Patient reports associated abdominal swelling. 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 After the discharge she was taking pain medications and her condition started worsening after few days. She is in constant follow up with Dr Gann. Today in the emergency department WBCs 21.2, left shift neutrophils 85.5%, BUN 26, creatinine 3.1, GFR 17, lactic acid 8.0, no urinalysis has been collected or sent to lab, CT of abdomen and pelvis showed of free air in the abdomen which could be a suspected bowel perforation versus postsurgical changes, moderate ascites, fissure post surgical changes. Chest x-ray shows right pleural effusion. Additionally patient had a heart rate of 125, respirations 26, together with leukocytosis and lactic acidosis patient met clinical sepsis criteria additionally patient's blood pressure dropped to 85/50 mmHg requiring vasopressor support therefore meeting criteria for septic shock. Patient will be admitted to the intensive care unit. Emergency room physician spoke with patient's surgeon, Dr. Gann who requested patient be admitted under hospitalist service and she will follow this case along. 07/21/25 Patient was evaluated at the bedside. She was accompanied by her daughter. She is oriented to the time, place and person. She complained of abdominal pain in all the quadrants. She hasn't had bowel movement since Saturday and also is unable to pass flatus at this time. She has guarding, rigidity and tenderness all over the abdomen, showing the signs of peritonitis. She was seen by Dr Gann this mo rning and is planned to be taken to OR this afternoon. Dueñas catheter is in place, as she wasn't able to pass the urine. There is no fever, chills and any other signs of infection. 07/22/25 Patient was evaluated at the bedside. She was accompanied by her daughter. She is oriented to the time, place and person. She status post diagnostic laparoscopy, abdominal washout, drain placement and diverting loop ileostomy creation. Currently she complains of abdominal pain which is 5/10 intensity. She also complaints of mild lower back pain There is no fever, chills and any other signs of infection. She has CHRIS drain in-situ with clear fluid along with colostomy bag. She is currently tolerating clear liquid diet. REVIEW OF SYSTEMS CONSTITUTIONAL: No fever, chills, or night sweats. NEUROLOGICAL: Denies headache, sensory and motor deficit. CARDIOVASCULAR: Denies any exertional angina, dyspnea on exertion, palpitations. PULMONARY: Denies any shortness of breath, cough, phlegm/sputum, hemoptysis, pleuritic chest pain. GASTROINTESTINAL: Patient complains of diffuse abdominal pain 3-4/10 intensity. Denies nausea, vomiting. GENITOURINARY: Denies frequency, urgency, nocturia, hematuria or incontinence. PHYSICAL EXAM GENERAL APPEARANCE: The patient is alert, awake and oriented and bedbound. NEUROLOGICAL: No sensory and motor deficits. CHEST: Normal chest expansion. LUNGS: Normal Vesicular breath sound. Absence of any rales, rhonchi or any wheezing. CARDIOVASCULAR: Regular. S1 and S2 normal. No appreciable rubs, murmurs or gallops. ABDOMEN: Abdomen is slightly tender. Absence of guarding and rigidity. GENITOURINARY: No suprapubic tenderness. No costovertebral angle tenderness. Vital Signs (last 8hr) Date Time Temp Pulse Resp B/P (MAP) Pulse Ox O2 Delivery O2 Flow Rate FiO2 07/23/25 12:00 95 Room Air* 0 N/A Non-Rebreather+ 07/23/25 11:00 65 23 110/67 (81) 97 106/80 (89) 07/23/25 10:00 63 22 128/84 (99) 94 110/80 (90) 07/23/25 09:00 60 18 129/83 (98) 97 127/85 (99) 07/23/25 08:09 95 Room Air* 0 N/A Non-Rebreather+ 07/23/25 08:05 98.1 07/23/25 08:00 56 15 119/82 (94) 97 106/82 (90) LABS: Laboratory: Test 07/23/25 12:01 07/23/25 04:00 07/22/25 04:20 07/21/25 16:09 Range/Units Whole Blood Glucose 152 H 70-110 MG/DL White Blood Count 8.2 # 4.8-10.8 K/uL Red Blood Count 2.91 L 4.00-5.50 MIL/uL Hemoglobin 8.6 L 12.0-16.0 g/dL Hematocrit 26.3 L 36-48 % Mean Corpuscular Volume 90.4 79-99 fL Mean Corpuscular Hemoglobin 29.6 27.0-33.0 pg Mean Corpuscular Hemoglobin Concent 32.7 32.0-36.0 g/dL Red Cell Distribution Width 18.0 H 11.0-15.5 % Platelet Count 138 # 130-400 K/uL Mean Platelet Volume 10.4 7.5-10.5 fL Immature Granulocyte % (Auto) 3.8 H 0-1 % Neutrophils (%) (Auto) 78.7 H 40.0-77.0 % Lymphocytes (%) (Auto) 9.5 L 21.0-51.0 % Monocytes (%) (Auto) 7.8 3.0-13.0 % Eosinophils (%) (Auto) 0.0 0.0-8.0 % Basophils (%) (Auto) 0.2 0.0-5.0 % Neutrophils # (Auto) 6.5 1.8-7.7 K/uL Lymphocytes # (Auto) 0.8 L 1.0-4.8 K/uL Monocytes # (Auto) 0.6 0.1-1.0 K/uL Eosinophils # (Auto) 0.00 0.00-0.70 K/uL Basophils # (Auto) 0.02 0.00-0.20 K/uL Absolute Immature Granulocyte (auto 0.31 0-1 K/uL Nucleated Red Blood Cells 0.0 0.0-0.19 % Red Blood Cell Morphology See comments Sodium Level 138 136-145 mmol/L Potassium Level 4.0 3.5-5.1 mmol/L Chloride Level 105 101-111 mmol/L Carbon Dioxide Level 25 21-32 mmol/L Blood Urea Nitrogen 55 H 7-18 mg/dL Creatinine 1.6 H 0.5-1.0 mg/dL Glomerular Filtration Rate Calc 37 >90 mL/min Random Glucose 152 H 70-105 mg/dL Total Calcium 7.8 L 8.5-10.1 mg/dL Phosphorus Level 4.7 2.5-4.9 mg/dL Magnesium Level 2.10 1.80-2.40 mg/dL Total Bilirubin 0.3 # 0.2-1.0 mg/dL Aspartate Amino Transf (AST/SGOT) 28 10-37 U/L Alanine Aminotransferase (ALT/SGPT) 14 12-78 U/L Alkaline Phosphatase 95 50-136 U/L Ammonia 33 H 11-32 umol/L Total Protein 5.0 L 6.0-8.3 g/dL Albumin 1.6 L 3.5-5.0 g/dL Uric Acid 6.4 2.6-7.2 mg/dL Thyroid Stimulating Hormone (TSH) 0.27 L 0.36-3.74 uIU/mL Blood Gas Specimen Type Arterial Arterial Blood pH 7.353 7.350-7.450 Arterial Blood Partial Pressure CO2 36 32-45 mmHg Arterial Blood Partial Pressure O2 142.4 H 83.0-108.0 mmHg Arterial Blood HCO3 19.3 L 21.0-28.0 mmol/L Arterial Blood Oxygen Saturation 98.6 H 94.0-98.0 % Arterial Blood Base Excess -5.5 L -2.0-3.0 mmol/L Hemoglobin (Blood Gas) 11.2 L 12.0-16.0 g/dL Sodium (Blood Gas) 137 136-145 MMOL/L Bedside Potassium (Blood Gas) 4.0 3.4-4.5 MMOL/L Bedside Chloride (Blood Gas) 107 98-107 MMOL/L Bedside Glucose (Blood Gas) 92 65-95 MG/DL Bedside Ionized Calcium (Blood Gas) 0.99 L 1.15-1.33 MMOL/L Bedside Lactic Acid (Blood Gas) 2.30 H 0.36-0.75 MMOL/L Blood Gas Temperature 37.0 35.5-37.0 CELSIUS Blood Gas Vent Mode NRB ROOM AIR FiO2 100.0 % Blood Gas Specimen Comment KRISHNA COLEMAN Current Medications Medications (Trade) Dose Ordered Sig/Gregory Route PRN Reason Start Time Stop Time Status Last Admin Dose Admin Acetaminophen (TYLenol 650MG SUPPOSITORY) 650 mg Q6H PRN RC MILD PAIN (1-3) 07/21/25 00:00 08/20/25 00:00 Fluconazole/ Sodium Chloride (DiFLUCan 200 MG/ NS 100 ML) 200 mg Q24H IVPB 07/21/25 21:00 08/20/25 20:59 07/22/25 20:11 200 MG Insulin Human Regular (humuLIN R 100 UNIT/ML 3ML) INSULIN SLIDING SCAL... ACHS SQ 07/21/25 07:30 08/20/25 07:29 07/22/25 20:40 3 UNIT Lactated Ringer's 1,000 ml @ 75 mls/hr [id number] IV 07/21/25 00:00 07/21/25 13:17 DC 07/21/25 02:57 75 MLS/HR Lactated Ringer's 1,000 ml @ 75 mls/hr [id number] IV 07/21/25 13:30 08/20/25 13:29 07/23/25 06:47 75 MLS/HR Magnesium Sulfate 50 ml @ 0 mls/hr PROTOCOL PRN IV MAGNESIUM PROTOCOL 07/21/25 07:00 08/20/25 06:59 Metronidazole/ Sodium Chloride (flaGYL) 500 mg Q8H IV 07/21/25 14:00 07/21/25 13:40 DC Morphine Sulfate (morPHINE 2MG SYG) 2 mg Q4H PRN IVP SEVERE PAIN (7-10) 07/21/25 00:30 07/21/25 13:18 DC 07/21/25 04:46 2 MG Morphine Sulfate (morPHINE 4MG SYG) 4 mg Q3H PRN IV SEVERE PAIN (7-10) 07/21/25 13:30 07/28/25 13:29 07/23/25 10:12 4 MG Norepinephrine 250 ml @ 0 mls/hr PROTOCOL IV 07/20/25 23:30 08/19/25 23:29 07/21/25 10:56 18.45 MLS/HR Ondansetron HCl (zoFRAN 4MG INJ) 4 mg Q4H PRN IVP NAUSEA 07/21/25 13:30 08/20/25 13:29 Ondansetron HCl (zoFRAN 4MG INJ) 4 mg Q6H PRN IV NAUSEA/VOMITING 07/21/25 00:00 07/21/25 13:18 DC Pantoprazole Sodium (PROTonix 40MG INJ) 40 mg DAILY IV 07/21/25 09:00 08/20/25 08:59 07/23/25 10:03 40 MG Pharmacy Profile Note (Pharmacy Communication) 1 each ONCE MISC 07/21/25 15:30 07/21/25 15:16 DC Piperacillin Sod/ Tazobactam Sod 50 ml @ 200 mls/hr ONCE STAT IVPB 07/20/25 19:15 07/20/25 19:29 DC 07/20/25 20:32 200 MLS/HR Piperacillin Sod/ Tazobactam Sod (Zosyn 3.375gm+NS 50ml) 3.375 gm Q12H IV 07/21/25 00:00 07/31/25 00:00 07/23/25 12:21 3.375 GM Sodium Bicarbonate 150 meq/Sodium Chloride 1,150 ml @ 0 mls/hr Q0M IVP 07/21/25 14:00 08/20/25 13:59 Thiamine HCl (Vitamin B-1) 100 mg DAILY IVP 07/22/25 21:00 08/21/25 20:59 07/23/25 10:03 100 MG Thiamine HCl 100 mg/Sodium Chloride 50 ml @ 100 mls/hr Q24H IM 07/21/25 15:30 07/21/25 16:25 DC Vancomycin HCl (Vancomycin 1g/ 250ml Kit) 1 gm ONCE STAT IV 07/20/25 21:23 07/20/25 21:26 DC 07/20/25 22:06 1 GM Vasopressin 20 units/Sodium Chloride 100 ml @ 0 mls/hr PROTOCOL IV 07/21/25 00:30 08/20/25 00:29 07/21/25 00:10 9 MLS/HR DIAGNOSTICS / RADIOLOGY: [address] [address] IMAGING REPORT Signed PATIENT: DALLAS BUCHANAN MR#: [id number] : 1970 SEX: F AGE: 55 LOCATION: 2BH ORDER [id number] STATUS: ADM IN REPORT#: [id number] SERVICE 1106 REASON: sob ORDERING PHYSICIAN: PREET BOSTON MD PROCEDURE: CXR1VW - CHEST 1VW CHEST 1VW REASON: sob COMPARISON: Study from 07/21/2025 is available. FINDINGS: Single view of the chest was obtained. Lungs are clear. Heart size is normal. There is no pulmonary vascular congestion. There is a right-sided PIC catheter with tip in superior vena cava. There is a nasogastric tube with the tip in the fundus of the stomach. Mediastinum and bony thorax appear unremarkable. IMPRESSION: 1. No acute cardiopulmonary process 2. The support lines are in satisfactory position.. DICTATED BY: GREER FIORE MD DATE: 07/22/25 1350 ELECTRONICALLY SIGNED BY: GREER FIORE MD DATE: 07/22/25 1356 ASSESSMENT: Diagnostic laparoscopy, abdominal washout, drain placement and diverting loop ileostomy creation, Status Post Day 1 Suspected Bowel Perforation POA Robotic takedown of splenic flexure mobilization, robotic takedown of colovesical fistula with sigmoid colectomy and end-to-end anastomosis Diabetes Mellitus Type 2 POA Acute Kidney Injury POA Septic Shock POA Cirrhosis of liver POA Oesophageal Varices PLAN: Diagnostic laparoscopy, abdominal washout, drain placement and diverting loop ileostomy creation, Status Post Day 1 -Patient is gradually improving but still complaints of abdominal and lower back pain. 07/23/25 - Plan is to ambulate the patient as tolerated -She is able to tolerate the liquid diet -Continue close monitoring of the patient As per Dr Gann. 07/22/25 -Abdominal cavity showed pneumoperitoneum and rebecca bilious peritonitis. Bile was suctioned out 2500 cc. -Evaluated the stomach and there was no signs of perforation and it was very distended. -Colonic anastomosis had area of bubbling and there was a 2 mm dehiscence of the anastomosis with perforation. -Abdominal washout, drain placement and diverting loop ileostomy creation was performed. - After the surgery She is now hemodynamically stable. She has been counseled about her current clinical status and was reassured. - Continue Lactated Ringer's at 75 ml/hr for volume resuscitation and electrolyte replacement. Bowel Perforation, Dehiscence of the anastomosis - Patient had repair of colo vesicular fistula with sigmoid colon resection and anastomosis on 07/09/25. - CT abdominal pelvis w/contrast showed Free air in the upper abdomen is seen, suggesting perforated bowel vs post surgical changes. No obstruction. - As per Dr Gann patient is planned to be taken to OR this afternoon for further assessment and management. - Patient had signs of Peritonitis like guarding, rigidity and the tenderness, post surgery. - She has bloating and abdominal distension. - Currently on Zosyn (Day 3) and Fluconazole (Day 3). Septic Shock -White blood cells has trended down to 8.2 from 13.3. 07/23/25 -Her WBC during the presentation was 21.2 and today its 25.3. 07/21/25 - Blood pressure initially 85/50, Pulse 125, Temperature 98.4. 07/20/25 - Lactic acid similarly was 8.0 and today it trended down to 3.4. 07/21/25 - Procalcitonin level is 10.32. - She was given Ringer's Lactate and Vasopressin along with Norepinephrine on 07/20/25. Acute Kidney Injury - Renal function is improving with creatinine level of 1.4. 07/22/25 -FeNA is 0.1 %, secondary to dehydration and NSAIDs overuse. - Creatinine is trending down from 3.1 to 2.0 to 1.6. 07/23/25 - She received Ringers Lactate. -Urine sodium is < 13 and urine creatinine is 132.17. -Avoid nephrotoxic agents, eg. NSAIDS. -Weight patient daily. -Monitor intake and output. Cirrhosis of liver -Patient has a past history of cirrhosis of liver. -Ammonia level was 33 which reduced from 40. 9. - Liver functions are within normal limits. AST 23, ALT 12 and ALP 108. - Avoid NSAIDs and high dose acetaminophen. -Maintain appropriate volume of the patient. Supportive measures -Maintain IV fluids, correct electrolytes -Serial abdominal exams -Halal Butcher on avoidance of NSAIDS and other related triggers. -Monitor Vitals and perform morning labs regularly ATTESTATION BY PHYSICIAN I have seen and examined the patient. I reviewed the documentation, medical decision making, and treatment plan as noted by the resident provider above. I agree with the findings and plan of care. Miguel Conley MD [facility] MD Jul 23, 2025 15:56
--- NOTE | 2025-07-23 16:05 | NUR ---
[facility] ICU Skin Assessment: Patient assessed by wound healing team. Patient with no wounds or skin breakdown noted. Assessment and recommendations provided to primary nurse. Education provided. Addendum: 07/23/25 at 1724 by LAKIA LUCIO RN RN/ Amended: Links added.
--- NOTE | 2025-07-23 16:11 | PN ---
This is a 55-year-old female postop day two for diagnostic laparoscopy with the abdominal washout and drain placement with diverting loop ileostomy creation by Dr. Gann Interval history: This 55-year-old female seen by Dr. Gann in her room resting Patient with high output through CHRIS is primary team concerned and ordered CT CHRIS output however serosanguineous Patient is however with normal white count Vitals remained stable Hemoglobin slightly down to 8.6 No fevers Patient's abdominal discomfort improving Ostomy with good output patient tolerating clear liquid diet Physical exam General: Awake alert and oriented Heart: Regular rate and rhythm} Lungs: [Clear to auscultation no distress Abdomen: [Incisions clean and dry ostomy with notable output CHRIS drains with serosanguineous output Assessment : This is a 55-year-old female postop day two for diagnostic laparoscopy with the abdominal washout and drain placement with diverting loop ileostomy creation by Dr. Gann Plan: After assessing patient, Dr. Gann making recommendations to cancel CT order Patient to remain on clear liquid diet We will get Physical therapy to evaluate and work with the patient Patient to continue with the aggressive IS Continue with strict I's and O's of CHRIS drain Patient to continue with current antibiotics Repeat CBC and CMP tomorrow Surgical case has been discussed with my supervising physician in the above plan was formulated and agreed upon We appreciate the hospitalist team for us to participate in patient's care. Greater than 45 minutes of time spent patient, reviewing chart, working on documentation Vitals/Labs Vital Signs Date Time Temp Pulse Resp B/P (MAP) Pulse Ox O2 Delivery O2 Flow Rate FiO2 07/23/25 12:00 95 Room Air* 0 N/A Non-Rebreather+ 07/23/25 11:00 65 23 110/67 (81) 106/80 (89) 07/23/25 08:05 98.1 Laboratory Tests 07/23/25 04:00 Medications Current Medications Sodium Chloride 1,000 ml @ 0 mls/hr ONCE ONCE IV; Start 07/20/25 at 18:30; Stop 07/20/25 at 18:31; Status DC Piperacillin Sod/ Tazobactam Sod 50 ml @ 200 mls/hr ONCE STAT IVPB Last administered on 07/20/25at 20:32; Start 07/20/25 at 19:15; Stop 07/20/25 at 19:29; Status DC Sodium Chloride 2,109 ml @ 703 mls/hr ONCE ONCE IV Last administered on 07/20/25at 20:28; Start 07/20/25 at 19:30; Stop 07/20/25 at 22:29; Status DC Iohexol 75 ml STK-MED ONCE IV; Start 07/20/25 at 20:31; Stop 07/20/25 at 20:31; Status DC Vancomycin HCl 1 gm ONCE STAT IV Last administered on 07/20/25at 22:06; Start 07/20/25 at 21:23; Stop 07/20/25 at 21:26; Status DC Morphine Sulfate 4 mg ONCE ONCE IVP Last administered on 07/20/25at 23:15; Start 07/20/25 at 23:30; Stop 07/20/25 at 23:31; Status DC Ondansetron HCl 4 mg ONCE ONCE IVP Last administered on 07/20/25at 23:14; Start 07/20/25 at 23:30; Stop 07/20/25 at 23:31; Status DC Norepinephrine 250 ml @ 0 mls/hr PROTOCOL IV Last administered on 07/21/25at 10:56; Start 07/20/25 at 23:30; Stop 08/19/25 at 23:29 Piperacillin Sod/ Tazobactam Sod 3.375 gm Q12H IV Last administered on 07/23/25at 12:21; Start 07/21/25 at 00:00; Stop 07/31/25 at 00:00 Acetaminophen 650 mg Q6H PRN RC; Start 07/21/25 at 00:00; Stop 08/20/25 at 00:00 Pantoprazole Sodium 40 mg DAILY IV Last administered on 07/23/25at 10:03; Start 07/21/25 at 09:00; Stop 08/20/25 at 08:59 Ondansetron HCl 4 mg Q6H PRN IV; Start 07/21/25 at 00:00; Stop 07/21/25 at 13:18; Status DC Morphine Sulfate 2 mg Q4H PRN IVP Last administered on 07/21/25at 04:46; Start 07/21/25 at 00:30; Stop 07/21/25 at 13:18; Status DC Lactated Ringer's 1,000 ml @ 75 mls/hr [id number] IV Last administered on 07/21/25at 02:57; Start 07/21/25 at 00:00; Stop 07/21/25 at 13:17; Status DC Insulin Human Regular INSULIN SLIDING SCAL... ACHS SQ Last administered on 07/22/25at 20:40; Start 07/21/25 at 07:30; Stop 08/20/25 at 07:29 Vasopressin 20 units/Sodium Chloride 100 ml @ 0 mls/hr PROTOCOL IV Last administered on 07/21/25at 00:10; Start 07/21/25 at 00:30; Stop 08/20/25 at 00:29 Vasopressin 20 units STK-MED ONCE .ROUTE; Start 07/21/25 at 00:10; Stop 07/21/25 at 00:11; Status DC Magnesium Sulfate 50 ml @ 0 mls/hr PROTOCOL PRN IV; Start 07/21/25 at 07:00; Stop 08/20/25 at 06:59 Acetaminophen 100 ml @ As Directed STK-MED ONCE .ROUTE; Start 07/21/25 at 09:42; Stop 07/21/25 at 09:42; Status DC Famotidine 20 mg STK-MED ONCE IV; Start 07/21/25 at 09:42; Stop 07/21/25 at 09:42; Status DC Albumin Human 500 ml @ As Directed STK-MED ONCE IV; Start 07/21/25 at 09:45; Stop 07/21/25 at 09:45; Status DC Phenylephrine HCl 10 mg STK-MED ONCE IV; Start 07/21/25 at 09:48; Stop 07/21/25 at 09:48; Status DC Dexamethasone Sodium Phosphate 10 mg STK-MED ONCE .ROUTE; Start 07/21/25 at 09:52; Stop 07/21/25 at 09:52; Status DC Ondansetron HCl 4 mg STK-MED ONCE .ROUTE; Start 07/21/25 at 09:52; Stop 07/21/25 at 09:52; Status DC Lidocaine HCl 100 mg STK-MED ONCE .ROUTE; Start 07/21/25 at 09:52; Stop 07/21/25 at 09:52; Status DC Succinylcholine Chloride 200 mg STK-MED ONCE .ROUTE; Start 07/21/25 at 09:53; Stop 07/21/25 at 09:53; Status DC Glycopyrrolate 1 mg STK-MED ONCE .ROUTE; Start 07/21/25 at 09:53; Stop 07/21/25 at 09:53; Status DC Fentanyl Citrate 100 mcg STK-MED ONCE .ROUTE; Start 07/21/25 at 09:54; Stop 07/21/25 at 09:54; Status DC Propofol 200 mg STK-MED ONCE IV; Start 07/21/25 at 09:54; Stop 07/21/25 at 09:54; Status DC Neostigmine Methylsulfate 10 mg STK-MED ONCE IV; Start 07/21/25 at 09:54; Stop 07/21/25 at 09:54; Status DC Rocuronium [place] 50 mg STK-MED ONCE .ROUTE; Start 07/21/25 at 09:54; Stop 07/21/25 at 09:54; Status DC Ketamine HCl 50 mg STK-MED ONCE .ROUTE; Start 07/21/25 at 09:55; Stop 07/21/25 at 09:56; Status DC Epinephrine HCl 1 mg STK-MED ONCE .ROUTE; Start 07/21/25 at 10:03; Stop 07/21/25 at 10:03; Status DC Midazolam HCl 2 mg STK-MED ONCE .ROUTE; Start 07/21/25 at 10:05; Stop 07/21/25 at 10:05; Status DC Indocyanine Green 25 mg STK-MED ONCE IJ; Start 07/21/25 at 10:49; Stop 07/21/25 at 10:49; Status DC Ephedrine Sulfate 50 mg STK-MED ONCE .ROUTE; Start 07/21/25 at 11:17; Stop 07/21/25 at 11:17; Status DC Bupivacaine HCl 5 mg STK-MED ONCE .ROUTE Last administered on 07/21/25at 12:14; Start 07/21/25 at 11:49; Stop 07/21/25 at 11:49; Status DC Sodium Bicarbonate 200 ml @ As Directed STK-MED ONCE .ROUTE; Start 07/21/25 at 12:19; Stop 07/21/25 at 12:19; Status DC Fentanyl Citrate 100 mcg STK-MED ONCE .ROUTE; Start 07/21/25 at 12:23; Stop 07/21/25 at 12:23; Status DC Phytonadione 10 mg STK-MED ONCE .ROUTE; Start 07/21/25 at 13:05; Stop 07/21/25 at 13:05; Status DC Lactated Ringer's 1,000 ml @ 75 mls/hr [id number] IV Last administered on 07/23/25at 06:47; Start 07/21/25 at 13:30; Stop 08/20/25 at 13:29 Morphine Sulfate 4 mg Q3H PRN IV Last administered on 07/23/25at 10:12; Start 07/21/25 at 13:30; Stop 07/28/25 at 13:29 Ondansetron HCl 4 mg Q4H PRN IVP; Start 07/21/25 at 13:30; Stop 08/20/25 at 13:29 Fentanyl Citrate 100 mcg STK-MED ONCE .ROUTE; Start 07/21/25 at 13:26; Stop 07/21/25 at 13:26; Status DC Sodium Bicarbonate 150 meq/Sodium Chloride 1,150 ml @ 0 mls/hr Q0M IVP; Start 07/21/25 at 14:00; Stop 08/20/25 at 13:59 Sodium Bicarbonate 100 meq ONCE ONCE IV; Start 07/21/25 at 14:00; Stop 07/21/25 at 14:23; Status DC Metronidazole/ Sodium Chloride 500 mg Q8H IV; Start 07/21/25 at 14:00; Stop 07/21/25 at 13:40; Status DC Fluconazole/ Sodium Chloride 200 mg Q24H IVPB Last administered on 07/22/25at 20:11; Start 07/21/25 at 21:00; Stop 08/20/25 at 20:59 Pharmacy Profile Note 1 each ONCE MISC; Start 07/21/25 at 15:30; Stop 07/21/25 at 15:16; Status DC Thiamine HCl 100 mg/Sodium Chloride 50 ml @ 100 mls/hr Q24H IM; Start 07/21/25 at 15:30; Stop 07/21/25 at 16:25; Status DC Sodium Bicarbonate 100 meq ONCE ONCE IV Last administered on 07/21/25at 16:42; Start 07/21/25 at 16:30; Stop 07/21/25 at 16:31; Status DC Thiamine HCl 100 mg DAILY IVP Last administered on 07/23/25at 10:03; Start 07/22/25 at 21:00; Stop 08/21/25 at 20:59 Diatrizoate Meglum/ Diatrizoate Sod 30 ml STK-MED ONCE .ROUTE; Start 07/23/25 at 15:13; Stop 07/23/25 at 15:13; Status DC BENEDICTO OBRIEN Jr. Jul 23, 2025 16:11
--- NOTE | 2025-07-23 21:46 | PN ---
INFECTIOUS DISEASE PROGRESS NOTE Date of Service: Jul 23, 2025 SUBJECTIVE: This is a 55 year old female patient who was seen and examined at bedside in room 206. Patient is awake, alert and oriented x3. Patient is status post diagnostic laparoscopy, abdominal washout, ileostomy creation and CHRIS drain placement on 07/21/2025. Per nursing report the CHRIS drain put out about [address] of the abdomen and pelvis being Obtain to rule out leakage. Patient is afebrile, temperature is 98.1 and the WBC continues to improve and is 8.2 today. We will continue on fluconazole and Zosyn. PHYSICAL EXAM EYES: Anicteric. Pupils equal and reactive. HENT: No oral thrush seen, moist Oral mucosa. NECK: Supple, no JVD or thyromegaly. LUNGS: Good air entry. No rales, no rhonchi. CARDIOVASCULAR: S1, S2 regular. No murmur heard. ABDOMEN: Soft, non tender, bowel sounds present, no organomegaly. CHRIS drain. Ileostomy creation. CENTRAL NERVOUS SYSTEM: Awake, alert, oriented x 3. SKIN: No rashes, no swelling. LYMPHATICS: No peripheral lymphadenopathy. MUSCULOSKELETAL: No joint swelling, erythema or tenderness. EXTREMITIES: No cyanosis or clubbing. BACK: No deformity, no pressure ulcer. GENITOURINARY: No dysuria or hematuria. Dueñas catheter. Vital Sign (Last 12 Hours) 07/23/25 07/23/25 07/23/25 07/23/25 10:00 11:00 12:00 12:00 Pulse 63 65 62 Resp 22 23 19 B/P (MAP) 128/84 (99) 110/67 (81) 106/61 (76) 110/80 (90) 106/80 (89) 113/73 (86) Pulse Ox 94 97 97 95 O2 Delivery Room Air* Non-Rebreather+ O2 Flow Rate 0 FiO2 N/A 07/23/25 07/23/25 07/23/25 07/23/25 13:00 14:00 15:00 16:00 Pulse 61 61 62 Resp 15 14 21 B/P (MAP) 117/67 (84) 108/62 (77) 117/69 (85) 115/73 (87) 114/76 (89) 137/92 (107) Pulse Ox 90 94 95 95 O2 Delivery Room Air* Non-Rebreather+ O2 Flow Rate 0 FiO2 N/A 07/23/25 07/23/25 07/23/25 16:00 17:00 18:00 Pulse 57 62 61 Resp 17 49 29 B/P (MAP) 127/73 (91) 131/57 (81) 116/60 (78) 124/70 (88) Pulse Ox 95 99 98 Intake & Output (last 24hrs) 07/22/25 07/22/25 07/23/25 15:00 23:00 07:00 Intake Total 850.0 ml 1000.0 ml 650.0 ml Output Total 280 ml 1050 ml 550 ml Balance 570.0 ml -50.0 ml 100.0 ml LABS: Laboratory: Test 07/23/25 20:54 07/23/25 16:05 07/23/25 04:00 07/22/25 04:20 Range/Units Whole Blood Glucose 118 H 70-110 MG/DL Lactic Acid Level 1.6 0.8-2.5 mmol/L White Blood Count 8.2 # 4.8-10.8 K/uL Red Blood Count 2.91 L 4.00-5.50 MIL/uL Hemoglobin 8.6 L 12.0-16.0 g/dL Hematocrit 26.3 L 36-48 % Mean Corpuscular Volume 90.4 79-99 fL Mean Corpuscular Hemoglobin 29.6 27.0-33.0 pg Mean Corpuscular Hemoglobin Concent 32.7 32.0-36.0 g/dL Red Cell Distribution Width 18.0 H 11.0-15.5 % Platelet Count 138 # 130-400 K/uL Mean Platelet Volume 10.4 7.5-10.5 fL Immature Granulocyte % (Auto) 3.8 H 0-1 % Neutrophils (%) (Auto) 78.7 H 40.0-77.0 % Lymphocytes (%) (Auto) 9.5 L 21.0-51.0 % Monocytes (%) (Auto) 7.8 3.0-13.0 % Eosinophils (%) (Auto) 0.0 0.0-8.0 % Basophils (%) (Auto) 0.2 0.0-5.0 % Neutrophils # (Auto) 6.5 1.8-7.7 K/uL Lymphocytes # (Auto) 0.8 L 1.0-4.8 K/uL Monocytes # (Auto) 0.6 0.1-1.0 K/uL Eosinophils # (Auto) 0.00 0.00-0.70 K/uL Basophils # (Auto) 0.02 0.00-0.20 K/uL Absolute Immature Granulocyte (auto 0.31 0-1 K/uL Nucleated Red Blood Cells 0.0 0.0-0.19 % Red Blood Cell Morphology See comments Sodium Level 138 136-145 mmol/L Potassium Level 4.0 3.5-5.1 mmol/L Chloride Level 105 101-111 mmol/L Carbon Dioxide Level 25 21-32 mmol/L Blood Urea Nitrogen 55 H 7-18 mg/dL Creatinine 1.6 H 0.5-1.0 mg/dL Glomerular Filtration Rate Calc 37 >90 mL/min Random Glucose 152 H 70-105 mg/dL Total Calcium 7.8 L 8.5-10.1 mg/dL Phosphorus Level 4.7 2.5-4.9 mg/dL Magnesium Level 2.10 1.80-2.40 mg/dL Total Bilirubin 0.3 # 0.2-1.0 mg/dL Aspartate Amino Transf (AST/SGOT) 28 10-37 U/L Alanine Aminotransferase (ALT/SGPT) 14 12-78 U/L Alkaline Phosphatase 95 50-136 U/L Ammonia 33 H 11-32 umol/L Total Protein 5.0 L 6.0-8.3 g/dL Albumin 1.6 L 3.5-5.0 g/dL Uric Acid 6.4 2.6-7.2 mg/dL Thyroid Stimulating Hormone (TSH) 0.27 L 0.36-3.74 uIU/mL ASSESSMENT: Hypoxic respiratory failure requiring oxygen support. Septic shock. Generalized peritonitis. Suspected bowel perforation, s/p diagnostic laparoscopy, abdominal washout, ileostomy creation and CHRIS drain placement on 07/21/2025. Leukocytosis. Acute renal failure. Diabetes mellitus. Recent colovesical fistula repair with sigmoid colon resection and anastomosis on 07/09/2025 PLAN: Continue fluconazole. Continue Zosyn. Continue critical care support. Continue pain management. Avoid nephrotoxic medications. Obtain CT of the abdomen and pelvis with and without contrast This case was reviewed and discussed with my supervising physician Dr. Tripathi and the above assessment and plan was formulated and agreed upon. ATTESTATION BY PHYSICIAN I have seen and examined the patient. I reviewed the documentation, medical decision making, and treatment plan as noted by the mid-level provider above. I agree with the findings and plan of care. AMIE TRIPATHI MD, [facility] Jul 23, 2025 21:46
[2025-07-24] VITALS (11 sets, daily range): BP systolic 104–121; BP diastolic 54–79; PULSE 57–75; RESP 14–24; TEMP 98–99.7; O2SAT 96
[2025-07-24 05:17] LABS: IMMATURE GRANULOCYTE ABSOLUTE 0.49 K/uL (0-1); NUCLEATED RED BLOOD CELLS 1.0 % (0.0-0.19); PLATELET COUNT (AUTO) 111 K/uL (130-400); RED BLOOD CELL COUNT(AUTO) 3.28 MIL/uL (4.00-5.50); RED CELL DISTRIBUTION WIDTH 17.8 % (11.0-15.5); WHITE BLOOD COUNT (AUTO) 6.2 K/uL (4.8-10.8)
[2025-07-24 05:47] LABS: ASPARTATE AMINOTRANSFERASE 33.0 U/L (10-37); CREATININE 1.1 mg/dL (0.5-1.0); GLOMERULAR FILTR. RATE CALC 59.0 mL/min (>90); GLUCOSE,RANDOM 96.0 mg/dL (70-105); SODIUM SERUM 138.0 mmol/L (136-145); TOTAL PROTEIN, SERUM 5.0 g/dL (6.0-8.3); UREA NITROGEN, BLOOD 38.0 mg/dL (7-18)
[2025-07-24] MEDS: MAGNESIUM 2GM PREMIX 50ML 50 ML IV PRN (05:55)
[2025-07-24] MEDS: PoTASSium chloRIDE 20MEQ ER 20 MEQ ERTAB PO PRN (09:23)
--- NOTE | 2025-07-24 13:10 | PN ---
FOLLOWUP PROGRESS NOTE SUBJECTIVE: A 55-year-old female with a history of diabetes mellitus and hypertension. The patient was initially admitted and found to have acute on chronic renal dysfunction. The patient with bowel perforation. She is status post laparoscopy with ileostomy placement. The patient's renal function continues to stabilize here now but has improved. She remains on a clear liquid diet and she is being seen for all of the above. REVIEW OF SYSTEMS: GENERAL: She is feeling improved. HEENT: No change in vision. No change in hearing. CARDIOVASCULAR: There is no current chest pains or palpitations. PULMONARY: There is no shortness of breath. GASTROINTESTINAL: As described above. MUSCULOSKELETAL: Complains of weakness. PHYSICAL EXAMINATION: VITAL SIGNS: Blood pressure 111/54, pulse 60, afebrile. GENERAL: Chronically ill female, much older than appearing. HEENT: Head is atraumatic. Pupils are equal, round, and reactive to light. Oropharynx is without exudate. Nose is clear. NECK: There is no JVP. There is no thyromegaly. No mass. CARDIOVASCULAR: Regular. There is no S3 or S4 gallop. LUNGS: Coarse with equal thoracic movement. ABDOMEN: Soft, nondistended, and nontender. EXTREMITIES: Reveal no clubbing, no cyanosis. NEUROLOGICAL: She is awake. She is alert. LABORATORY DATA: Hemoglobin 9.8, hematocrit 29. BUN 38, creatinine is 1. IMPRESSION: * Acute renal failure. * Perforated bowel status post surgery. * Diabetes mellitus. * Hypertension. * Electrolyte abnormalities. PLAN: The patient's creatinine is much improved. The patient has been started on a clear liquid diet. Diet will be advanced per surgical recommendation. The patient's electrolytes have all been aggressively repleted. Blood pressure is under adequate control. She has been started on physical therapy. We will continue to follow closely. The patient and family at the bedside. Multiple questions were all answered. TID: [id number] RECEIPT: [id number]
--- NOTE | 2025-07-24 13:25 | PN ---
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 Patient found to have an elevated white count, CT of the abdomen revealed a possible bowel perforation. Patient hypotensive started on vaso and levo along with antibiotics of Zosyn, patient's lactic was 4.7. Admitted to the ICU with surgical consultation. Patient seen and examined this morning in the ICU. Comfortable, on room air alert and oriented and no fevers. White count improving and lactic is down to 3.4. She has an elevated procalcitonin, surgical plan is to take the patient back to the OR. Interval history: Patient seen and examined, she is resting comfortably in bed, alert and oriented x4 , afebrile Reporting pain still present to the right flank but down from yesterday Patient is a urine output of 1200 in 12 Tolerating clears CHRIS is 600/12, ileostomy with 200/12 No drips, tolerating clear diet Renal function improved Plan: Follow surgical recs, CT scan canceled by surgery Follow I&Os Antibiotics Telemetry Discussion with family at bedside Critical care will sign off at this time, thank you for allowing us to participate with the care of your patient. Please contact if needed. Code Status: Full Resuscitation GI & DVT Prophylaxis REVIEW OF SYSTEMS: General: No malaise or fever. Neurological: No distress HEENT: No nasal congestion or nasal secretion. Respiratory: No cough, shortness of breath, or wheezing Cardiac: No chest pain or palpitations. Gastrointestinal: No vomiting or diarrhea. Genitourinary: No dysuria hematuria. Skin: No rashes or lesions. Hematological: No bruises or bleeding. Musculoskeletal: No joint pains or arthralgias. Psychiatric: No depression or panic attacks. PHYSICAL EXAM: GENERAL: alert, weak, awake oriented x 3 HEENT: EOMI, Sclera non icteric, moist mucosa NECK: Supple, no JVD, trachea midline LUNGS: Clear breath sounds bilaterally. No wheezes HEART: Regular rate and rhythm. Normal S1 and S2, without murmurs ABD: CHRIS drains present, ileostomy t EXT: No clubbing cyanosis or edema. NEURO: Alert and oriented to person, follows commands PLAN GI & NUTRITION: Continue nutritional support Aspirations precautions Prokinetic agents and laxatives as needed KIDNEYS & ELECTROLYTES: Strict monitoring of intake and output NEURO: Minimize central acting medications as possible. Fall Precautions. Well lighted room through the day and minimize interruptions through the night to prevent acute delirium. PULMONARY: Supplemental 02 as needed Titrate Fio2 to keep Spo2 > or = 90% DuoNebs and CPT as needed CARDIOVASCULAR: Follow hemodynamics. Titrate vasopressor to keep MAP >65 or systolic blood pressure >95mmHg ENDOCRINE: Maintain blood glucose between 100-180 at all times. Insulin sliding scale for blood glucose management RENAL: Avoid nephrotoxic agents INFECTIOUS DISEASE: Trend temperature. Hull-culture if febrile. HEMATOLOGY & COAGULATION: Monitor H&H. Keep Hgb > 7 Transfuse 1 unit of PRBC for Hgb < 7 Watch for any signs and symptoms of bleeding SKIN: Pressure ulcer prevention per facility protocol Total patient critical care time 45 minutes excluding all procedures. ATTESTATION BY PHYSICIAN The patient has been seen and evaluated, the case has been discussed with the PA, I agree with the clinical findings and plan of care. Vitals/Labs Vital Signs Date Time Temp Pulse Resp B/P (MAP) Pulse Ox O2 Delivery O2 Flow Rate FiO2 07/24/25 08:00 98.1 64 17 111/54 94 Room Air 07/24/25 04:00 21 07/23/25 20:00 0 Laboratory Tests 07/24/25 04:43 Medications Current Medications Sodium Chloride 1,000 ml @ 0 mls/hr ONCE ONCE IV; Start 07/20/25 at 18:30; Stop 07/20/25 at 18:31; Status DC Piperacillin Sod/ Tazobactam Sod 50 ml @ 200 mls/hr ONCE STAT IVPB Last administered on 07/20/25at 20:32; Start 07/20/25 at 19:15; Stop 07/20/25 at 19:29; Status DC Sodium Chloride 2,109 ml @ 703 mls/hr ONCE ONCE IV Last administered on 07/20/25at 20:28; Start 07/20/25 at 19:30; Stop 07/20/25 at 22:29; Status DC Iohexol 75 ml STK-MED ONCE IV; Start 07/20/25 at 20:31; Stop 07/20/25 at 20:31; Status DC Vancomycin HCl 1 gm ONCE STAT IV Last administered on 07/20/25at 22:06; Start 07/20/25 at 21:23; Stop 07/20/25 at 21:26; Status DC Morphine Sulfate 4 mg ONCE ONCE IVP Last administered on 07/20/25at 23:15; Start 07/20/25 at 23:30; Stop 07/20/25 at 23:31; Status DC Ondansetron HCl 4 mg ONCE ONCE IVP Last administered on 07/20/25at 23:14; Start 07/20/25 at 23:30; Stop 07/20/25 at 23:31; Status DC Norepinephrine 250 ml @ 0 mls/hr PROTOCOL IV Last administered on 07/21/25at 10:56; Start 07/20/25 at 23:30; Stop 08/19/25 at 23:29 Piperacillin Sod/ Tazobactam Sod 3.375 gm Q12H IV Last administered on 07/24/25at 12:50; Start 07/21/25 at 00:00; Stop 07/31/25 at 00:00 Acetaminophen 650 mg Q6H PRN RC; Start 07/21/25 at 00:00; Stop 08/20/25 at 00:00 Pantoprazole Sodium 40 mg DAILY IV Last administered on 07/24/25at 09:20; Start 07/21/25 at 09:00; Stop 08/20/25 at 08:59 Ondansetron HCl 4 mg Q6H PRN IV; Start 07/21/25 at 00:00; Stop 07/21/25 at 13:18; Status DC Morphine Sulfate 2 mg Q4H PRN IVP Last administered on 07/21/25at 04:46; Start 07/21/25 at 00:30; Stop 07/21/25 at 13:18; Status DC Lactated Ringer's 1,000 ml @ 75 mls/hr [id number] IV Last administered on 07/21/25at 02:57; Start 07/21/25 at 00:00; Stop 07/21/25 at 13:17; Status DC Insulin Human Regular INSULIN SLIDING SCAL... ACHS SQ Last administered on 07/22/25at 20:40; Start 07/21/25 at 07:30; Stop 08/20/25 at 07:29 Vasopressin 20 units/Sodium Chloride 100 ml @ 0 mls/hr PROTOCOL IV Last administered on 07/21/25at 00:10; Start 07/21/25 at 00:30; Stop 08/20/25 at 00:29 Vasopressin 20 units STK-MED ONCE .ROUTE; Start 07/21/25 at 00:10; Stop 07/21/25 at 00:11; Status DC Magnesium Sulfate 50 ml @ 0 mls/hr PROTOCOL PRN IV Last administered on 07/24/25at 05:55; Start 07/21/25 at 07:00; Stop 08/20/25 at 06:59 Acetaminophen 100 ml @ As Directed STK-MED ONCE .ROUTE; Start 07/21/25 at 09:42; Stop 07/21/25 at 09:42; Status DC Famotidine 20 mg STK-MED ONCE IV; Start 07/21/25 at 09:42; Stop 07/21/25 at 09:42; Status DC Albumin Human 500 ml @ As Directed STK-MED ONCE IV; Start 07/21/25 at 09:45; Stop 07/21/25 at 09:45; Status DC Phenylephrine HCl 10 mg STK-MED ONCE IV; Start 07/21/25 at 09:48; Stop 07/21/25 at 09:48; Status DC Dexamethasone Sodium Phosphate 10 mg STK-MED ONCE .ROUTE; Start 07/21/25 at 09:52; Stop 07/21/25 at 09:52; Status DC Ondansetron HCl 4 mg STK-MED ONCE .ROUTE; Start 07/21/25 at 09:52; Stop 07/21/25 at 09:52; Status DC Lidocaine HCl 100 mg STK-MED ONCE .ROUTE; Start 07/21/25 at 09:52; Stop 07/21/25 at 09:52; Status DC Succinylcholine Chloride 200 mg STK-MED ONCE .ROUTE; Start 07/21/25 at 09:53; Stop 07/21/25 at 09:53; Status DC Glycopyrrolate 1 mg STK-MED ONCE .ROUTE; Start 07/21/25 at 09:53; Stop 07/21/25 at 09:53; Status DC Fentanyl Citrate 100 mcg STK-MED ONCE .ROUTE; Start 07/21/25 at 09:54; Stop 07/21/25 at 09:54; Status DC Propofol 200 mg STK-MED ONCE IV; Start 07/21/25 at 09:54; Stop 07/21/25 at 09:54; Status DC Neostigmine Methylsulfate 10 mg STK-MED ONCE IV; Start 07/21/25 at 09:54; Stop 07/21/25 at 09:54; Status DC Rocuronium [place] 50 mg STK-MED ONCE .ROUTE; Start 07/21/25 at 09:54; Stop 07/21/25 at 09:54; Status DC Ketamine HCl 50 mg STK-MED ONCE .ROUTE; Start 07/21/25 at 09:55; Stop 07/21/25 at 09:56; Status DC Epinephrine HCl 1 mg STK-MED ONCE .ROUTE; Start 07/21/25 at 10:03; Stop 07/21/25 at 10:03; Status DC Midazolam HCl 2 mg STK-MED ONCE .ROUTE; Start 07/21/25 at 10:05; Stop 07/21/25 at 10:05; Status DC Indocyanine Green 25 mg STK-MED ONCE IJ; Start 07/21/25 at 10:49; Stop 07/21/25 at 10:49; Status DC Ephedrine Sulfate 50 mg STK-MED ONCE .ROUTE; Start 07/21/25 at 11:17; Stop 07/21/25 at 11:17; Status DC Bupivacaine HCl 5 mg STK-MED ONCE .ROUTE Last administered on 07/21/25at 12:14; Start 07/21/25 at 11:49; Stop 07/21/25 at 11:49; Status DC Sodium Bicarbonate 200 ml @ As Directed STK-MED ONCE .ROUTE; Start 07/21/25 at 12:19; Stop 07/21/25 at 12:19; Status DC Fentanyl Citrate 100 mcg STK-MED ONCE .ROUTE; Start 07/21/25 at 12:23; Stop 07/21/25 at 12:23; Status DC Phytonadione 10 mg STK-MED ONCE .ROUTE; Start 07/21/25 at 13:05; Stop 07/21/25 at 13:05; Status DC Lactated Ringer's 1,000 ml @ 75 mls/hr [id number] IV Last administered on 07/24/25at 09:27; Start 07/21/25 at 13:30; Stop 07/24/25 at 11:09; Status DC Morphine Sulfate 4 mg Q3H PRN IV Last administered on 07/23/25at 23:57; Start 07/21/25 at 13:30; Stop 07/28/25 at 13:29 Ondansetron HCl 4 mg Q4H PRN IVP; Start 07/21/25 at 13:30; Stop 08/20/25 at 13:29 Fentanyl Citrate 100 mcg STK-MED ONCE .ROUTE; Start 07/21/25 at 13:26; Stop 07/21/25 at 13:26; Status DC Sodium Bicarbonate 150 meq/Sodium Chloride 1,150 ml @ 0 mls/hr Q0M IVP; Start 07/21/25 at 14:00; Stop 08/20/25 at 13:59 Sodium Bicarbonate 100 meq ONCE ONCE IV; Start 07/21/25 at 14:00; Stop 07/21/25 at 14:23; Status DC Metronidazole/ Sodium Chloride 500 mg Q8H IV; Start 07/21/25 at 14:00; Stop 07/21/25 at 13:40; Status DC Fluconazole/ Sodium Chloride 200 mg Q24H IVPB Last administered on 07/23/25at 21:06; Start 07/21/25 at 21:00; Stop 08/20/25 at 20:59 Pharmacy Profile Note 1 each ONCE MISC; Start 07/21/25 at 15:30; Stop 07/21/25 at 15:16; Status DC Thiamine HCl 100 mg/Sodium Chloride 50 ml @ 100 mls/hr Q24H IM; Start 07/21/25 at 15:30; Stop 07/21/25 at 16:25; Status DC Sodium Bicarbonate 100 meq ONCE ONCE IV Last administered on 07/21/25at 16:42; Start 07/21/25 at 16:30; Stop 07/21/25 at 16:31; Status DC Thiamine HCl 100 mg DAILY IVP Last administered on 07/24/25at 09:22; Start 07/22/25 at 21:00; Stop 08/21/25 at 20:59 Diatrizoate Meglum/ Diatrizoate Sod 30 ml STK-MED ONCE .ROUTE; Start 07/23/25 at 15:13; Stop 07/23/25 at 15:13; Status DC Potassium Chloride 100 ml @ 100 mls/hr AD PRN IV; Start 07/24/25 at 08:30; Stop 08/23/25 at 08:29 Potassium Chloride 20 meq AD PRN PO; Start 07/24/25 at 08:30; Stop 08/23/25 at 08:29 Potassium Chloride 20 meq AD PRN PO Last administered on 07/24/25at 12:50; Start 07/24/25 at 08:30; Stop 08/23/25 at 08:29 Hydromorphone HCl 0.5 mg Q4H PRN IVP Last administered on 07/24/25at 10:25; Start 07/24/25 at 10:00; Stop 07/29/25 at 09:59 JARED BASURTO Jul 24, 2025 13:25
--- NOTE | 2025-07-24 14:25 | PN ---
[facility] PROGRESS NOTE Date of Service: Jul 24, 2025 Time of Service: 14:25 SUBJECTIVE: Ms. Gray is a 55-year-old female that was seen and examined today on 07/20/2025. Patient reports that she came to the emergency department with a chief complaint of abdominal pain. Onset was 07/09/2025. Location is all four quadrants. Duration is constant. Character is described as pressure and " like I have a lot of gas trapped. " there was no alleviating factors. There was no aggravating factors. Patient reports associated abdominal swelling. 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 After the discharge she was taking pain medications and her condition started worsening after few days. She is in constant follow up with Dr Gann. Today in the emergency department WBCs 21.2, left shift neutrophils 85.5%, BUN 26, creatinine 3.1, GFR 17, lactic acid 8.0, no urinalysis has been collected or sent to lab, CT of abdomen and pelvis showed of free air in the abdomen which could be a suspected bowel perforation versus postsurgical changes, moderate ascites, fissure post surgical changes. Chest x-ray shows right pleural effusion. Additionally patient had a heart rate of 125, respirations 26, together with leukocytosis and lactic acidosis patient met clinical sepsis criteria additionally patient's blood pressure dropped to 85/50 mmHg requiring vasopressor support therefore meeting criteria for septic shock. Patient will be admitted to the intensive care unit. Emergency room physician spoke with patient's surgeon, Dr. Gann who requested patient be admitted under hospitalist service and she will follow this case along. 07/21/25 Patient was evaluated at the bedside. She was accompanied by her daughter. She is oriented to the time, place and person. She complained of abdominal pain in all the quadrants. She hasn't had bowel movement since Saturday and also is unable to pass flatus at this time. She has guarding, rigidity and tenderness all over the abdomen, showing the signs of peritonitis. She was seen by Dr Gann this mo rning and is planned to be taken to OR this afternoon. Dueñas catheter is in place, as she wasn't able to pass the urine. There is no fever, chills and any other signs of infection. 07/22/25 Patient was evaluated at the bedside. She was accompanied by her daughter. She is oriented to the time, place and person. She underwent Diagnostic laparoscopy, abdominal washout, drain placement and diverting loop ileostomy creation, The procedure revealed Bilious peritonitis, 2 mm perforation of the colonic anastomosis. She is hemodynamically stable with Blood pressure of 110/73 and HR of 83. Currently she complains of abdominal pain which is getting better than yesterday, its 3-4/10 intensity. There is no rigidity. She is anxious about the outcomes and had discussion regarding her current clinical status and lab parameters. There is no fever, chills and any other signs of infection. 07/23/25 Patient was evaluated at the bedside. She was accompanied by her daughter. She is oriented to the time, place and person. She status post diagnostic laparoscopy, abdominal washout, drain placement and diverting loop ileostomy creation. Currently she complains of abdominal pain which is 5/10 intensity. She also complaints of mild lower back pain There is no fever, chills and any other signs of infection. She has CHRIS drain in-situ with clear fluid along with colostomy bag. She is currently tolerating clear liquid diet. 07/24/2025 Patient is seen and examined at the bedside. Vitals blood pressure ranging in 100s/50s, pulse rate 50s, SpO2 greater than 95% on room air. She mentions about experiencing pressure-like discomfort on the right side of the abdomen and pain when she tries to eat. No acute events last night. She denies fever, chills, nausea, vomiting, chest pain. CHRIS output approximately 100cc/hr, serosanguineous fluid. Ileostomy bag in place. She is tolerating clear liquid diet without any nausea/vomiting. Labs hemoglobin 9.8, BUN 38, creatinine improved from 1.6-1.1. REVIEW OF SYSTEMS CONSTITUTIONAL: No fever, chills, or night sweats. NEUROLOGICAL: Denies headache, sensory and motor deficit. CARDIOVASCULAR: Denies any exertional angina, dyspnea on exertion, palpitatio ns. PULMONARY: Denies any shortness of breath, cough, phlegm/sputum, hemoptysis, pleuritic chest pain. GASTROINTESTINAL: Patient complains of diffuse abdominal pain 3-4/10 intensity, . Denies nausea, vomiting. GENITOURINARY: Denies frequency, urgency, nocturia, hematuria or incontinence. PHYSICAL EXAM GENERAL APPEARANCE: The patient is alert, awake and oriented and bedbound. NEUROLOGICAL: No sensory and motor deficits. CHEST: Normal chest expansion. LUNGS: Normal Vesicular breath sound. Absence of any rales, rhonchi or any wheezing. CARDIOVASCULAR: Regular. S1 and S2 normal. No appreciable rubs, murmurs or gallops. ABDOMEN: Abdomen is slightly tender. Absence of guarding, rigidity and rebound tenderness. GENITOURINARY: No suprapubic tenderness. No costovertebral angle tenderness. Vital Signs (last 8hr) Date Time Temp Pulse Resp B/P (MAP) Pulse Ox O2 Delivery O2 Flow Rate FiO2 07/24/25 08:00 98.1 64 17 111/54 94 Room Air LABS: Laboratory: Test 07/24/25 11:48 07/24/25 04:43 07/23/25 16:05 07/23/25 04:00 Range/Units Whole Blood Glucose 106 70-110 MG/DL White Blood Count 6.2 4.8-10.8 K/uL Red Blood Count 3.28 L 4.00-5.50 MIL/uL Hemoglobin 9.8 L 12.0-16.0 g/dL Hematocrit 29.9 L 36-48 % Mean Corpuscular Volume 91.2 79-99 fL Mean Corpuscular Hemoglobin 29.9 27.0-33.0 pg Mean Corpuscular Hemoglobin Concent 32.8 32.0-36.0 g/dL Red Cell Distribution Width 17.8 H 11.0-15.5 % Platelet Count 111 L 130-400 K/uL Mean Platelet Volume 10.0 7.5-10.5 fL Immature Granulocyte % (Auto) 7.9 H 0-1 % Neutrophils (%) (Auto) 60.6 40.0-77.0 % Lymphocytes (%) (Auto) 15.0 L 21.0-51.0 % Monocytes (%) (Auto) 14.6 H 3.0-13.0 % Eosinophils (%) (Auto) 1.1 0.0-8.0 % Basophils (%) (Auto) 0.8 0.0-5.0 % Neutrophils # (Auto) 3.8 1.8-7.7 K/uL Lymphocytes # (Auto) 0.9 L 1.0-4.8 K/uL Monocytes # (Auto) 0.9 0.1-1.0 K/uL Eosinophils # (Auto) 0.07 0.00-0.70 K/uL Basophils # (Auto) 0.05 0.00-0.20 K/uL Absolute Immature Granulocyte (auto 0.49 0-1 K/uL Nucleated Red Blood Cells 1.0 H 0.0-0.19 % Sodium Level 138 136-145 mmol/L Potassium Level 3.8 3.5-5.1 mmol/L Chloride Level 104 101-111 mmol/L Carbon Dioxide Level 29 21-32 mmol/L Blood Urea Nitrogen 38 H 7-18 mg/dL Creatinine 1.1 H 0.5-1.0 mg/dL Glomerular Filtration Rate Calc 59 >90 mL/min Random Glucose 96 70-105 mg/dL Total Calcium 7.5 L 8.5-10.1 mg/dL Magnesium Level 1.90 1.80-2.40 mg/dL Total Bilirubin 0.4 0.2-1.0 mg/dL Aspartate Amino Transf (AST/SGOT) 33 10-37 U/L Alanine Aminotransferase (ALT/SGPT) 12 12-78 U/L Alkaline Phosphatase 87 50-136 U/L Total Protein 5.0 L 6.0-8.3 g/dL Albumin 1.6 L 3.5-5.0 g/dL Lactic Acid Level 1.6 0.8-2.5 mmol/L Red Blood Cell Morphology See comments Phosphorus Level 4.7 2.5-4.9 mg/dL Ammonia 33 H 11-32 umol/L Current Medications Medications (Trade) Dose Ordered Sig/Gregory Route PRN Reason Start Time Stop Time Status Last Admin Dose Admin Acetaminophen (TYLenol 650MG SUPPOSITORY) 650 mg Q6H PRN RC MILD PAIN (1-3) 07/21/25 00:00 08/20/25 00:00 Fluconazole/ Sodium Chloride (DiFLUCan 200 MG/ NS 100 ML) 200 mg Q24H IVPB 07/21/25 21:00 08/20/25 20:59 07/23/25 21:06 200 MG Hydromorphone HCl (DiLAUDid 0.5MG INJ) 0.5 mg Q4H PRN IVP SEVERE PAIN (7-10) 07/24/25 10:00 07/29/25 09:59 07/24/25 10:25 0.5 MG Insulin Human Regular (humuLIN R 100 UNIT/ML 3ML) INSULIN SLIDING SCAL... ACHS SQ 07/21/25 07:30 08/20/25 07:29 07/22/25 20:40 3 UNIT Lactated Ringer's 1,000 ml @ 75 mls/hr [id number] IV 07/21/25 00:00 07/21/25 13:17 DC 07/21/25 02:57 75 MLS/HR Lactated Ringer's 1,000 ml @ 75 mls/hr [id number] IV 07/21/25 13:30 07/24/25 11:09 DC 07/24/25 09:27 75 MLS/HR Magnesium Sulfate 50 ml @ 0 mls/hr PROTOCOL PRN IV MAGNESIUM PROTOCOL 07/21/25 07:00 08/20/25 06:59 07/24/25 05:55 25 MLS/HR Metronidazole/ Sodium Chloride (flaGYL) 500 mg Q8H IV 07/21/25 14:00 07/21/25 13:40 DC Morphine Sulfate (morPHINE 2MG SYG) 2 mg Q4H PRN IVP SEVERE PAIN (7-10) 07/21/25 00:30 07/21/25 13:18 DC 07/21/25 04:46 2 MG Morphine Sulfate (morPHINE 4MG SYG) 4 mg Q3H PRN IV MODERATE PAIN (4-6) 07/21/25 13:30 07/28/25 13:29 07/23/25 23:57 4 MG Norepinephrine 250 ml @ 0 mls/hr PROTOCOL IV 07/20/25 23:30 08/19/25 23:29 07/21/25 10:56 18.45 MLS/HR Ondansetron HCl (zoFRAN 4MG INJ) 4 mg Q4H PRN IVP NAUSEA 07/21/25 13:30 08/20/25 13:29 Ondansetron HCl (zoFRAN 4MG INJ) 4 mg Q6H PRN IV NAUSEA/VOMITING 07/21/25 00:00 07/21/25 13:18 DC Pantoprazole Sodium (PROTonix 40MG INJ) 40 mg DAILY IV 07/21/25 09:00 08/20/25 08:59 07/24/25 09:20 40 MG Pharmacy Profile Note (Pharmacy Communication) 1 each ONCE MISC 07/21/25 15:30 07/21/25 15:16 DC Piperacillin Sod/ Tazobactam Sod 50 ml @ 200 mls/hr ONCE STAT IVPB 07/20/25 19:15 07/20/25 19:29 DC 07/20/25 20:32 200 MLS/HR Piperacillin Sod/ Tazobactam Sod (Zosyn 3.375gm+NS 50ml) 3.375 gm Q12H IV 07/21/25 00:00 07/31/25 00:00 07/24/25 12:50 3.375 GM Potassium Chloride 100 ml @ 100 mls/hr AD PRN IV POTASSIUM PROTOCOL 07/24/25 08:30 08/23/25 08:29 Potassium Chloride (K-Dur/Klor-Con 20meq) 20 meq AD PRN PO POTASSIUM PROTOCOL 07/24/25 08:30 08/23/25 08:29 07/24/25 12:50 20 MEQ Potassium Chloride (KCl 10% Elixir 20meq/15ml) 20 meq AD PRN PO POTASSIUM PROTOCOL 07/24/25 08:30 08/23/25 08:29 Sodium Bicarbonate 150 meq/Sodium Chloride 1,150 ml @ 0 mls/hr Q0M IVP 07/21/25 14:00 08/20/25 13:59 Thiamine HCl (Vitamin B-1) 100 mg DAILY IVP 07/22/25 21:00 08/21/25 20:59 07/24/25 09:22 100 MG Thiamine HCl 100 mg/Sodium Chloride 50 ml @ 100 mls/hr Q24H IM 07/21/25 15:30 07/21/25 16:25 DC Vancomycin HCl (Vancomycin 1g/ 250ml Kit) 1 gm ONCE STAT IV 07/20/25 21:23 07/20/25 21:26 DC 07/20/25 22:06 1 GM Vasopressin 20 units/Sodium Chloride 100 ml @ 0 mls/hr PROTOCOL IV 07/21/25 00:30 08/20/25 00:29 07/21/25 00:10 9 MLS/HR DIAGNOSTICS / RADIOLOGY: [ ] ASSESSMENT: Suspected Bowel Perforation POA Bilious peritonitis s/p Diagnostic laparoscopy, abdominal washout, drain placement and diverting loop ileostomy creation Diabetes Mellitus Type 2 POA Acute Kidney Injury POA Septic Shock POA Cirrhosis of liver POA Esophageal Varices Recent Robotic takedown of splenic flexure mobilization, robotic takedown of colovesical fistula with sigmoid colectomy and end-to-end anastomosis surgery PLAN: Bilious peritonitis status post Diagnostic laparoscopy, abdominal washout, drain placement and diverting loop ileostomy creation -She is able to tolerate the clear liquid diet -Continue close monitoring of the patient -continue physical therapy -Monitor CHRIS drain output -Continue Lactated Ringer's at 75 ml/hr for volume resuscitation and electrolyte replacement -continue Zosyn [day 4 ] and fluconazole [day 4] Bowel Perforation, Dehiscence of the anastomosis - Patient had repair of colo vesicular fistula with sigmoid colon resection and anastomosis on 07/09/25. - CT abdominal pelvis w/contrast done on 07/20/2025 showed Free air in the upper abdomen is seen, suggesting perforated bowel vs post surgical changes. No obstruction. -underwent Diagnostic laparoscopy, abdominal washout, drain placement and diverting loop ileostomy creation for biliary peritonitis Septic Shock -resolved -Her WBC during the presentation was 21.2 and today its 6.2 -lactic acid normal at 1.6 yesterday -blood and urine culture results are negative Acute Kidney Injury -resolving, creatinine improved from 1.6-1.1 -Initial FeNA is 0.1 %, probably secondary to dehydration and NSAIDs overuse. -initial Urine sodium is < 13 and urine creatinine is 132.17. -Avoid nephrotoxic agents, eg. NSAIDS. -Weight patient daily. -Monitor intake and output. Cirrhosis of liver -Patient has a past history of cirrhosis of liver. -Ammonia level was 33 which reduced from 40. 9/. - Liver functions are within normal limits. AST 23, ALT 12 and ALP 108. - Avoid NSAIDs and high dose acetaminophen. -Maintain appropriate volume of the patient. Supportive measures -Maintain IV fluids, correct electrolytes -Serial abdominal exams -Motor Vehicles Inspector on avoidance of NSAIDS and other related triggers. -Monitor Vitals and perform morning labs regularly Continue GI prophylaxis with Pantop Continue DVT prophylaxis with SCDs, we will avoid heparin due to history of allergies to porcine, we will coordinate with surgery consult on initiation of other anticoagulants ATTESTATION BY PHYSICIAN I have seen and examined the patient. I reviewed the documentation, medical decision making, and treatment plan as noted by the resident above. I agree with the findings and plan of care. Miguel Conley MD, PRIYANKA MD Jul 24, 2025 14:25
--- NOTE | 2025-07-24 20:21 | PN ---
GENERAL SURGERY PROGRESS NOTE Date/Time Patient Seen: [07/24/2025 5:15 PM ] Problem List: [ ] Interval History: [55-year-old female, postop day 3, Diagnostic laparoscopy, abdominal washout, drain placement and diverting loop ileostomy creation by Dr. Gann Complaints of abdominal pain but mainly to lateral areas extending to the back Nurse reports patient continues with high output from CHRIS drain, about 100 cc clear serous fluid emptied out every hour Patient has been tolerating clear liquids without any nausea or vomiting Ileostomy functioning, producing gas and stool WBCs down to 6.2 H&H 9.8 and 299, platelets 111 Patient does have a history of cirrhosis and ascites Vital signs have remained stable] Current Medications Medications (Trade) Dose Ordered Sig/Gregory Route Start Time Stop Time Status Last Admin Dose Admin Fluconazole/ Sodium Chloride (DiFLUCan 200 MG/ NS 100 ML) 200 mg Q24H IVPB 07/21/25 21:00 08/20/25 20:59 07/23/25 21:06 200 MG Insulin Human Regular (humuLIN R 100 UNIT/ML 3ML) INSULIN SLIDING SCAL... ACHS SQ 07/21/25 07:30 08/20/25 07:29 07/22/25 20:40 3 UNIT Lactated Ringer's 1,000 ml @ 75 mls/hr [id number] IV 07/21/25 00:00 07/21/25 13:17 DC 07/21/25 02:57 75 MLS/HR Lactated Ringer's 1,000 ml @ 75 mls/hr [id number] IV 07/21/25 13:30 07/24/25 11:09 DC 07/24/25 09:27 75 MLS/HR Metronidazole/ Sodium Chloride (flaGYL) 500 mg Q8H IV 07/21/25 14:00 07/21/25 13:40 DC Norepinephrine 250 ml @ 0 mls/hr PROTOCOL IV 07/20/25 23:30 08/19/25 23:29 07/21/25 10:56 18.45 MLS/HR Pantoprazole Sodium (PROTonix 40MG INJ) 40 mg DAILY IV 07/21/25 09:00 08/20/25 08:59 07/24/25 09:20 40 MG Pharmacy Profile Note (Pharmacy Communication) 1 each ONCE MISC 07/21/25 15:30 07/21/25 15:16 DC Piperacillin Sod/ Tazobactam Sod 50 ml @ 200 mls/hr ONCE STAT IVPB 07/20/25 19:15 07/20/25 19:29 DC 07/20/25 20:32 200 MLS/HR Piperacillin Sod/ Tazobactam Sod (Zosyn 3.375gm+NS 50ml) 3.375 gm Q12H IV 07/21/25 00:00 07/31/25 00:00 07/24/25 12:50 3.375 GM Sodium Bicarbonate 150 meq/Sodium Chloride 1,150 ml @ 0 mls/hr Q0M IVP 07/21/25 14:00 08/20/25 13:59 Thiamine HCl (Vitamin B-1) 100 mg DAILY IVP 07/22/25 21:00 08/21/25 20:59 07/24/25 09:22 100 MG Thiamine HCl 100 mg/Sodium Chloride 50 ml @ 100 mls/hr Q24H IM 07/21/25 15:30 07/21/25 16:25 DC Vancomycin HCl (Vancomycin 1g/ 250ml Kit) 1 gm ONCE STAT IV 07/20/25 21:23 07/20/25 21:26 DC 07/20/25 22:06 1 GM Vasopressin 20 units/Sodium Chloride 100 ml @ 0 mls/hr PROTOCOL IV 07/21/25 00:30 08/20/25 00:29 07/21/25 00:10 9 MLS/HR Physical Examination: GENERAL: [No acute distress, female, comfortably resting in bed.] HEAD: [Normocephalic.] EYES: [Normal conjunctiva l.] ENT: [Hearing grossly intact.] NECK: [Supple.] LUNGS: [Clear breath sounds bilaterally] HEART: [Normal rate and rhythm.] VASC: [Peripheral pulses +2 bilaterally.] ABD: [Bowel sounds normal, soft, nondistended, ileostomy with healthy functioning stoma, surgical incisions with edges well approximated with Dermabond, no erythema or drainage, CHRIS in place with clear serous output, dependent edema noted 2 areas were patient is complaining of pain to] : [Indwelling Dueñas catheter in place] EXT: [mild edema to bilateral legs.] SKIN: [No rashes or lesions noted.] NEURO: [Awake, alert, and oriented x3. No focal sensory or strength deficits noted. Vital Signs (last 8hr) Date Time Temp Pulse Resp B/P (MAP) Pulse Ox O2 Delivery O2 Flow Rate FiO2 07/24/25 16:00 98.1 71 23 113/63 98 Room Air Laboratory: [ ] Hematology Labs: Test 07/24/25 04:43 07/23/25 04:00 Range/Units White Blood Count 6.2 4.8-10.8 K/uL Red Blood Count 3.28 L 4.00-5.50 MIL/uL Hemoglobin 9.8 L 12.0-16.0 g/dL Hematocrit 29.9 L 36-48 % Mean Corpuscular Volume 91.2 79-99 fL Mean Corpuscular Hemoglobin 29.9 27.0-33.0 pg Mean Corpuscular Hemoglobin Concent 32.8 32.0-36.0 g/dL Red Cell Distribution Width 17.8 H 11.0-15.5 % Platelet Count 111 L 130-400 K/uL Mean Platelet Volume 10.0 7.5-10.5 fL Immature Granulocyte % (Auto) 7.9 H 0-1 % Neutrophils (%) (Auto) 60.6 40.0-77.0 % Lymphocytes (%) (Auto) 15.0 L 21.0-51.0 % Monocytes (%) (Auto) 14.6 H 3.0-13.0 % Eosinophils (%) (Auto) 1.1 0.0-8.0 % Basophils (%) (Auto) 0.8 0.0-5.0 % Neutrophils # (Auto) 3.8 1.8-7.7 K/uL Lymphocytes # (Auto) 0.9 L 1.0-4.8 K/uL Monocytes # (Auto) 0.9 0.1-1.0 K/uL Eosinophils # (Auto) 0.07 0.00-0.70 K/uL Basophils # (Auto) 0.05 0.00-0.20 K/uL Absolute Immature Granulocyte (auto 0.49 0-1 K/uL Nucleated Red Blood Cells 1.0 H 0.0-0.19 % Red Blood Cell Morphology See comments Chemistry Labs: Test 07/24/25 16:30 07/24/25 04:43 07/23/25 16:05 9/19/25 04:00 Range/Units Whole Blood Glucose 113 H 70-110 MG/DL Sodium Level 138 136-145 mmol/L Potassium Level 3.8 3.5-5.1 mmol/L Chloride Level 104 101-111 mmol/L Carbon Dioxide Level 29 21-32 mmol/L Blood Urea Nitrogen 38 H 7-18 mg/dL Creatinine 1.1 H 0.5-1.0 mg/dL Glomerular Filtration Rate Calc 59 >90 mL/min Random Glucose 96 70-105 mg/dL Total Calcium 7.5 L 8.5-10.1 mg/dL Magnesium Level 1.90 1.80-2.40 mg/dL Total Bilirubin 0.4 0.2-1.0 mg/dL Aspartate Amino Transf (AST/SGOT) 33 10-37 U/L Alanine Aminotransferase (ALT/SGPT) 12 12-78 U/L Alkaline Phosphatase 87 50-136 U/L Total Protein 5.0 L 6.0-8.3 g/dL Albumin 1.6 L 3.5-5.0 g/dL Lactic Acid Level 1.6 0.8-2.5 mmol/L Phosphorus Level 4.7 2.5-4.9 mg/dL Ammonia 33 H 11-32 umol/L Diagnostics / Radiology: [Copy/Paste Echos/Imaging Report here] Impression and Plan: [55-year-old female, postop day 3., diagnostic laparoscopy, abdominal washout, drain placement and diverting loop ileostomy creation by Dr. Gann Continues with high output from CHRIS but it is clear serous, most likely related to her ascites from her history of liver cirrhosis Dr. Gann recommends to only empty out her CHRIS drain every 3-4 hours instead of hourly WBCs trending down Stable H&H Continue close monitoring of output from CHRIS Continue with IV fluids and IV antibiotics Repeat labs in a.m. Surgical team will continue to follow closely Dr. Gann has been updated on patient's status Surgical case has been discussed with my supervising physician Plan was formulated and agreed upon We appreciate the hospitalist team for allowing us to participate in this patient's care Greater than 45 minutes spent examining patient, reviewing chart and working on documentation Time spent reviewing chart, evaluating patient and dictating plan of care greater than 45 minutes ] ATTESTATION BY PHYSICIAN I have seen and examined the patient. I reviewed the documentation, medical decision making, and treatment plan as noted by the mid-level provider above. I agree with the findings and plan of care. MD LEANA ISRAEL LETICIA A [employer]ANKING SUPERVIS[employer] Jul 24, 2025 20:21
[2025-07-25] VITALS (11 sets, daily range): BP systolic 101–121; BP diastolic 54–77; PULSE 70–81; RESP 13–21; TEMP 98.2–99.1; O2SAT 95–98
[2025-07-25 04:14] LABS: IMMATURE GRANULOCYTE ABSOLUTE 0.93 K/uL (0-1); NUCLEATED RED BLOOD CELLS 0.5 % (0.0-0.19); PLATELET COUNT (AUTO) 121 K/uL (130-400); RED BLOOD CELL COUNT(AUTO) 3.51 MIL/uL (4.00-5.50); RED CELL DISTRIBUTION WIDTH 17.7 % (11.0-15.5); WHITE BLOOD COUNT (AUTO) 8.3 K/uL (4.8-10.8)
[2025-07-25 04:39] LABS: ASPARTATE AMINOTRANSFERASE 44.0 U/L (10-37); CREATININE 0.7 mg/dL (0.5-1.0); GLOMERULAR FILTR. RATE CALC 101.0 mL/min (>90); GLUCOSE,RANDOM 125.0 mg/dL (70-105); SODIUM SERUM 137.0 mmol/L (136-145); TOTAL PROTEIN, SERUM 4.9 g/dL (6.0-8.3); UREA NITROGEN, BLOOD 20.0 mg/dL (7-18)
--- NOTE | 2025-07-25 10:37 | PN ---
GENERAL SURGERY PROGRESS NOTE Date/Time Patient Seen: [ 07/25/2025 08:15 ] Interval History: [55-year-old female, postop day 4, Diagnostic laparoscopy, abdominal washout, drain placement and diverting loop ileostomy creation by Dr. Gann Continues to complain of abdominal pain but mainly to lateral areas extending to the back, where patient is also having some dependent edema Patient does have a history of liver cirrhosis with possible ascites causing the large serous output from CHRIS drain Nurses have been emptying CHRIS reservoir every 3-4 hours to prevent large volume fluid loss Albumin level continues low at 1.6, can be contributing to dependent edema May advance diet to full liquid Ileostomy functioning, producing gas and stool WBCs down to 8.3 H&H 10.3/31.8 and 299, platelets improved to 121 Vital signs have remained stable] Current Medications Medications (Trade) Dose Ordered Sig/Gregory Route Start Time Stop Time Status Last Admin Dose Admin Albumin Human 100 ml @ 0 mls/hr ONCE IV 07/25/25 12:00 07/26/25 11:59 Cyclobenzaprine HCl (Cyclobenzaprine HCl) 5 mg TID PO 07/25/25 14:00 07/26/25 14:00 Fluconazole/ Sodium Chloride (DiFLUCan 200 MG/ NS 100 ML) 200 mg Q24H IVPB 07/21/25 21:00 08/20/25 20:59 07/24/25 21:02 200 MG Insulin Human Regular (humuLIN R 100 UNIT/ML 3ML) INSULIN SLIDING SCAL... ACHS SQ 07/21/25 07:30 08/20/25 07:29 07/22/25 20:40 3 UNIT Lactated Ringer's 1,000 ml @ 75 mls/hr [id number] IV 07/21/25 00:00 07/21/25 13:17 DC 07/21/25 02:57 75 MLS/HR Lactated Ringer's 1,000 ml @ 75 mls/hr [id number] IV 07/21/25 13:30 07/24/25 11:09 DC 07/24/25 09:27 75 MLS/HR Metronidazole/ Sodium Chloride (flaGYL) 500 mg Q8H IV 07/21/25 14:00 07/21/25 13:40 DC Norepinephrine 250 ml @ 0 mls/hr PROTOCOL IV 07/20/25 23:30 08/19/25 23:29 07/21/25 10:56 18.45 MLS/HR Pantoprazole Sodium (PROTonix 40MG INJ) 40 mg DAILY IV 07/21/25 09:00 08/20/25 08:59 07/25/25 08:15 40 MG Pharmacy Profile Note (Pharmacy Communication) 1 each ONCE MISC 07/21/25 15:30 07/21/25 15:16 DC Piperacillin Sod/ Tazobactam Sod 50 ml @ 200 mls/hr ONCE STAT IVPB 07/20/25 19:15 07/20/25 19:29 DC 07/20/25 20:32 200 MLS/HR Piperacillin Sod/ Tazobactam Sod (Zosyn 3.375gm+NS 50ml) 3.375 gm Q12H IV 07/21/25 00:00 07/31/25 00:00 07/24/25 22:48 3.375 GM Sodium Bicarbonate 150 meq/Sodium Chloride 1,150 ml @ 0 mls/hr Q0M IVP 07/21/25 14:00 08/20/25 13:59 Spironolactone (Aldactone 25mg) 25 mg BID PO 07/25/25 21:00 07/26/25 09:01 Thiamine HCl (Vitamin B-1) 100 mg DAILY IVP 07/22/25 21:00 08/21/25 20:59 07/25/25 08:15 100 MG Thiamine HCl 100 mg/Sodium Chloride 50 ml @ 100 mls/hr Q24H IM 07/21/25 15:30 07/21/25 16:25 DC Vancomycin HCl (Vancomycin 1g/ 250ml Kit) 1 gm ONCE STAT IV 07/20/25 21:23 07/20/25 21:26 DC 07/20/25 22:06 1 GM Vasopressin 20 units/Sodium Chloride 100 ml @ 0 mls/hr PROTOCOL IV 07/21/25 00:30 08/20/25 00:29 07/21/25 00:10 9 MLS/HR Physical Examination: GENERAL: [No acute distress, female, comfortably resting in bed, family at bedside.] HEAD: [Normocephalic.] EYES: [Normal conjunctiva l.] ENT: [Hearing grossly intact.] NECK: [Supple.] LUNGS: [Clear breath sounds bilaterally] HEART: [Normal rate and rhythm.] VASC: [Peripheral pulses +2 bilaterally.] ABD: [Bowel sounds normal, soft, nondistended, ileostomy with healthy functioning stoma, surgical incisions with edges well approximated with Dermabond, no erythema or drainage, CHRIS in place with serous output.] : [no bladder distention] EXT: [No edema.] SKIN: [No rashes or lesions noted.] NEURO: [Awake, alert, and oriented x3. No focal sensory or strength deficits noted.] Vital Signs (last 8hr) Date Time Temp Pulse Resp B/P (MAP) Pulse Ox O2 Delivery O2 Flow Rate FiO2 07/25/25 08:00 98.2 81 21 121/65 98 Room Air 07/25/25 04:40 99.0 73 20 101/54 97 Room Air 07/25/25 03:40 70 15 104/63 98 Room Air 07/25/25 02:40 70 16 110/62 95 Room Air Laboratory: [ ] Hematology Labs: Test 07/25/25 03:59 Range/Units White Blood Count 8.3 # 4.8-10.8 K/uL Red Blood Count 3.51 L 4.00-5.50 MIL/uL Hemoglobin 10.3 L 12.0-16.0 g/dL Hematocrit 31.8 L 36-48 % Mean Corpuscular Volume 90.6 79-99 fL Mean Corpuscular Hemoglobin 29.3 27.0-33.0 pg Mean Corpuscular Hemoglobin Concent 32.4 32.0-36.0 g/dL Red Cell Distribution Width 17.7 H 11.0-15.5 % Platelet Count 121 L 130-400 K/uL Mean Platelet Volume 9.8 7.5-10.5 fL Immature Granulocyte % (Auto) 11.2 H 0-1 % Neutrophils (%) (Auto) 61.2 40.0-77.0 % Lymphocytes (%) (Auto) 11.1 L 21.0-51.0 % Monocytes (%) (Auto) 11.5 3.0-13.0 % Eosinophils (%) (Auto) 3.9 0.0-8.0 % Basophils (%) (Auto) 1.1 0.0-5.0 % Neutrophils # (Auto) 5.1 1.8-7.7 K/uL Lymphocytes # (Auto) 0.9 L 1.0-4.8 K/uL Monocytes # (Auto) 1.0 0.1-1.0 K/uL Eosinophils # (Auto) 0.32 0.00-0.70 K/uL Basophils # (Auto) 0.09 0.00-0.20 K/uL Absolute Immature Granulocyte (auto 0.93 0-1 K/uL Nucleated Red Blood Cells 0.5 H 0.0-0.19 % Chemistry Labs: Test 07/25/25 06:26 07/25/25 03:59 07/23/25 16:05 Range/Units Whole Blood Glucose 97 70-110 MG/DL Sodium Level 137 136-145 mmol/L Potassium Level 4.2 3.5-5.1 mmol/L Chloride Level 106 101-111 mmol/L Carbon Dioxide Level 25 21-32 mmol/L Blood Urea Nitrogen 20 H 7-18 mg/dL Creatinine 0.7 0.5-1.0 mg/dL Glomerular Filtration Rate Calc 101 >90 mL/min Random Glucose 125 H 70-105 mg/dL Total Calcium 7.6 L 8.5-10.1 mg/dL Magnesium Level 1.80 1.80-2.40 mg/dL Total Bilirubin 0.6 # 0.2-1.0 mg/dL Aspartate Amino Transf (AST/SGOT) 44 H 10-37 U/L Alanine Aminotransferase (ALT/SGPT) 20 # 12-78 U/L Alkaline Phosphatase 88 50-136 U/L Total Protein 4.9 L 6.0-8.3 g/dL Albumin 1.6 L 3.5-5.0 g/dL Lactic Acid Level 1.6 0.8-2.5 mmol/L Diagnostics / Radiology: [Copy/Paste Echos/Imaging Report here] Impression and Plan: [55-year-old female, postop day 4., diagnostic laparoscopy, abdominal washout, drain placement and diverting loop ileostomy creation by Dr. Gann Patient continues to complain of pain mainly to the lateral abdomen and back area where patient has dependent edema We will order Flexeril 5 mg t.i.d. PT to evaluate to improve mobility and ambulation Continues with high output from CHRIS but it is clear serous, most likely related to her ascites from her history of liver cirrhosis We will transfuse albumin x2 doses Start spironolactone 25 mg b.i.d. to see if that helps with dependent edema Continue emptying CHRIS drain every 3-4 hours to prevent large volume fluid loss, m onitor output WBCs stable Stable H&H with platelets improving Repeat labs in a.m. Surgical team will continue to follow closely Dr. Gann has been updated on patient's status Surgical case has been discussed with my supervising physician Plan was formulated and agreed upon We appreciate the hospitalist team for allowing us to participate in this patient's care Greater than 45 minutes spent examining patient, reviewing chart and working on documentation Time spent reviewing chart, evaluating patient and dictating plan of care greater than 45 minutes ] ATTESTATION BY PHYSICIAN I have seen and examined the patient. I reviewed the documentation, medical decision making, and treatment plan as noted by the mid-level provider above. I agree with the findings and plan of care. MD LEANA ISRAEL LETICIA A APRN Jul 25, 2025 10:37
--- NOTE | 2025-07-25 11:30 | NUR ---
RECEIVED PATIENT INTO ROOM 432 [id number] PATIENT WITH OSTOMY BAG PATENT TO ABDOMINAL WALL, CHRIS DRAIN DRAINING YELLOW CLEAR ODORLESS FLUID IN MODERATE AMOUNTS.PATIENT VOICES NO PAIN AT PRESENT. ORIENTED TO ROOM.
--- NOTE | 2025-07-25 13:25 | PN ---
[facility] PROGRESS NOTE Date of Service: Jul 25, 2025 Time of Service: 13:22 SUBJECTIVE: Ms. Gray is a 55-year-old female that was seen and examined today on 07/20/2025. Patient reports that she came to the emergency department with a chief complaint of abdominal pain. Onset was 07/09/2025. Location is all four quadrants. Duration is constant. Character is described as pressure and " like I have a lot of gas trapped. " there was no alleviating factors. There was no aggravating factors. Patient reports associated abdominal swelling. 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 After the discharge she was taking pain medications and her condition started worsening after few days. She is in constant follow up with Dr Gann. Today in the emergency department WBCs 21.2, left shift neutrophils 85.5%, BUN 26, creatinine 3.1, GFR 17, lactic acid 8.0, no urinalysis has been collected or sent to lab, CT of abdomen and pelvis showed of free air in the abdomen which could be a suspected bowel perforation versus postsurgical changes, moderate ascites, fissure post surgical changes. Chest x-ray shows right pleural effusion. Additionally patient had a heart rate of 125, respirations 26, together with leukocytosis and lactic acidosis patient met clinical sepsis criteria additionally patient's blood pressure dropped to 85/50 mmHg requiring vasopressor support therefore meeting criteria for septic shock. Patient will be admitted to the intensive care unit. Emergency room physician spoke with patient's surgeon, Dr. Gann who requested patient be admitted under hospitalist service and she will follow this case along. 07/21/25 Patient was evaluated at the bedside. She was accompanied by her daughter. She is oriented to the time, place and person. She complained of abdominal pain in all the quadrants. She hasn't had bowel movement since Saturday and also is unable to pass flatus at this time. She has guarding, rigidity and tenderness all over the abdomen, showing the signs of peritonitis. She was seen by Dr Gann this mo rning and is planned to be taken to OR this afternoon. Dueñas catheter is in place, as she wasn't able to pass the urine. There is no fever, chills and any other signs of infection. 07/22/25 Patient was evaluated at the bedside. She was accompanied by her daughter. She is oriented to the time, place and person. She underwent Diagnostic laparoscopy, abdominal washout, drain placement and diverting loop ileostomy creation, The procedure revealed Bilious peritonitis, 2 mm perforation of the colonic anastomosis. She is hemodynamically stable with Blood pressure of 110/73 and HR of 83. Currently she complains of abdominal pain which is getting better than yesterday, its 3-4/10 intensity. There is no rigidity. She is anxious about the outcomes and had discussion regarding her current clinical status and lab parameters. There is no fever, chills and any other signs of infection. 07/23/25 Patient was evaluated at the bedside. She was accompanied by her daughter. She is oriented to the time, place and person. She status post diagnostic laparoscopy, abdominal washout, drain placement and diverting loop ileostomy creation. Currently she complains of abdominal pain which is 5/10 intensity. She also complaints of mild lower back pain There is no fever, chills and any other signs of infection. She has CHRIS drain in-situ with clear fluid along with colostomy bag. She is currently tolerating clear liquid diet. 07/24/2025 Patient is seen and examined at the bedside. Vitals blood pressure ranging in 100s/50s, pulse rate 50s, SpO2 greater than 95% on room air. She mentions about experiencing pressure-like discomfort on the right side of the abdomen and pain when she tries to eat. No acute events last night. She denies fever, chills, nausea, vomiting, chest pain. CHRIS output approximately 100cc/hr, serosanguineous fluid. Ileostomy bag in place. She is tolerating clear liquid diet without any nausea/vomiting. Labs hemoglobin 9.8, BUN 38, creatinine improved from 1.6-1.1. 07/24/2025 Patient is seen and examined at the bedside. She complains of abdominal pain which is 7/10 in intensity. No acute events last night. She denies fever, chills, nausea, vomiting, chest pain. CHRIS output approximately 100cc/hr, serosanguineous fluid. Ileostomy bag in place. The patient has been started on spironolactone 25mg BID and Lasix 20 mg once daily. There is high output from CHRIS but it is clear serous, most likely related to her ascites from her history of liver cirrhosis. She is tolerating clear liquid diet without any nausea/vomiting. REVIEW OF SYSTEMS CONSTITUTIONAL: No fever, chills, or night sweats. NEUROLOGICAL: Denies headache, sensory and motor deficit. CARDIOVASCULAR: Denies any exertional angina, dyspnea on exertion, palpitations. PULMONARY: Denies any shortness of breath, cough, phlegm/sputum, hemoptysis, pleuritic chest pain. GASTROINTESTINAL: Patient complains of diffuse abdominal pain 7/10 intensity, . Denies nausea, vomiting. GENITOURINARY: Denies frequency, urgency, nocturia, hematuria or incontinence. PHYSICAL EXAM GENERAL APPEARANCE: The patient is alert, awake and oriented and bedbound. NEUROLOGICAL: No sensory and motor deficits. CHEST: Normal chest expansion. LUNGS: Normal Vesicular breath sound. Absence of any rales, rhonchi or any wheezing. CARDIOVASCULAR: Regular. S1 and S2 normal. No appreciable rubs, murmurs or gallops. ABDOMEN: Abdomen is slightly tender. Absence of guarding, rigidity and rebound tenderness. GENITOURINARY: No suprapubic tenderness. No costovertebral angle tenderness. Vital Signs (last 8hr) Date Time Temp Pulse Resp B/P (MAP) Pulse Ox O2 Delivery O2 Flow Rate FiO2 07/25/25 12:00 98.2 81 18 106/61 96 Room Air 07/25/25 08:25 98 Room Air* 0 N/A Non-Rebreather+ 07/25/25 08:00 98.2 81 21 121/65 98 Room Air LABS: Laboratory: Test 07/25/25 06:26 07/25/25 03:59 07/23/25 16:05 Range/Units Whole Blood Glucose 97 70-110 MG/DL White Blood Count 8.3 # 4.8-10.8 K/uL Red Blood Count 3.51 L 4.00-5.50 MIL/uL Hemoglobin 10.3 L 12.0-16.0 g/dL Hematocrit 31.8 L 36-48 % Mean Corpuscular Volume 90.6 79-99 fL Mean Corpuscular Hemoglobin 29.3 27.0-33.0 pg Mean Corpuscular Hemoglobin Concent 32.4 32.0-36.0 g/dL Red Cell Distribution Width 17.7 H 11.0-15.5 % Platelet Count 121 L 130-400 K/uL Mean Platelet Volume 9.8 7.5-10.5 fL Immature Granulocyte % (Auto) 11.2 H 0-1 % Neutrophils (%) (Auto) 61.2 40.0-77.0 % Lymphocytes (%) (Auto) 11.1 L 21.0-51.0 % Monocytes (%) (Auto) 11.5 3.0-13.0 % Eosinophils (%) (Auto) 3.9 0.0-8.0 % Basophils (%) (Auto) 1.1 0.0-5.0 % Neutrophils # (Auto) 5.1 1.8-7.7 K/uL Lymphocytes # (Auto) 0.9 L 1.0-4.8 K/uL Monocytes # (Auto) 1.0 0.1-1.0 K/uL Eosinophils # (Auto) 0.32 0.00-0.70 K/uL Basophils # (Auto) 0.09 0.00-0.20 K/uL Absolute Immature Granulocyte (auto 0.93 0-1 K/uL Nucleated Red Blood Cells 0.5 H 0.0-0.19 % Sodium Level 137 136-145 mmol/L Potassium Level 4.2 3.5-5.1 mmol/L Chloride Level 106 101-111 mmol/L Carbon Dioxide Level 25 21-32 mmol/L Blood Urea Nitrogen 20 H 7-18 mg/dL Creatinine 0.7 0.5-1.0 mg/dL Glomerular Filtration Rate Calc 101 >90 mL/min Random Glucose 125 H 70-105 mg/dL Total Calcium 7.6 L 8.5-10.1 mg/dL Magnesium Level 1.80 1.80-2.40 mg/dL Total Bilirubin 0.6 # 0.2-1.0 mg/dL Aspartate Amino Transf (AST/SGOT) 44 H 10-37 U/L Alanine Aminotransferase (ALT/SGPT) 20 # 12-78 U/L Alkaline Phosphatase 88 50-136 U/L Total Protein 4.9 L 6.0-8.3 g/dL Albumin 1.6 L 3.5-5.0 g/dL Lactic Acid Level 1.6 0.8-2.5 mmol/L Current Medications Medications (Trade) Dose Ordered Sig/Gregory Route PRN Reason Start Time Stop Time Status Last Admin Dose Admin Acetaminophen (TYLenol 650MG SUPPOSITORY) 650 mg Q6H PRN RC MILD PAIN (1-3) 07/21/25 00:00 08/20/25 00:00 Albumin Human 100 ml @ 0 mls/hr ONCE IV 07/25/25 12:00 07/26/25 11:59 Cyclobenzaprine HCl (Cyclobenzaprine HCl) 5 mg TID PO 07/25/25 14:00 07/26/25 14:00 Fluconazole/ Sodium Chloride (DiFLUCan 200 MG/ NS 100 ML) 200 mg Q24H IVPB 07/21/25 21:00 08/20/25 20:59 07/24/25 21:02 200 MG Furosemide (LASix 20MG TAB) 20 mg DAILY PO 07/25/25 11:00 08/24/25 10:59 Hydromorphone HCl (DiLAUDid 0.5MG INJ) 0.5 mg Q4H PRN IVP SEVERE PAIN (7-10) 07/24/25 10:00 07/29/25 09:59 07/25/25 08:16 0.5 MG Insulin Human Regular (humuLIN R 100 UNIT/ML 3ML) INSULIN SLIDING SCAL... ACHS SQ 07/21/25 07:30 08/20/25 07:29 07/22/25 20:40 3 UNIT Lactated Ringer's 1,000 ml @ 75 mls/hr [id number] IV 07/21/25 00:00 07/21/25 13:17 DC 07/21/25 02:57 75 MLS/HR Lactated Ringer's 1,000 ml @ 75 mls/hr [id number] IV 07/21/25 13:30 07/24/25 11:09 DC 07/24/25 09:27 75 MLS/HR Magnesium Sulfate 50 ml @ 0 mls/hr PROTOCOL PRN IV MAGNESIUM PROTOCOL 07/21/25 07:00 08/20/25 06:59 07/25/25 09:36 25 MLS/HR Metronidazole/ Sodium Chloride (flaGYL) 500 mg Q8H IV 07/21/25 14:00 07/21/25 13:40 DC Morphine Sulfate (morPHINE 2MG SYG) 2 mg Q4H PRN IVP SEVERE PAIN (7-10) 07/21/25 00:30 07/21/25 13:18 DC 07/21/25 04:46 2 MG Morphine Sulfate (morPHINE 4MG SYG) 4 mg Q3H PRN IV MODERATE PAIN (4-6) 07/21/25 13:30 07/28/25 13:29 07/23/25 23:57 4 MG Norepinephrine 250 ml @ 0 mls/hr PROTOCOL IV 07/20/25 23:30 08/19/25 23:29 07/21/25 10:56 18.45 MLS/HR Ondansetron HCl (zoFRAN 4MG INJ) 4 mg Q4H PRN IVP NAUSEA 07/21/25 13:30 08/20/25 13:29 Ondansetron HCl (zoFRAN 4MG INJ) 4 mg Q6H PRN IV NAUSEA/VOMITING 07/21/25 00:00 07/21/25 13:18 DC Pantoprazole Sodium (PROTonix 40MG INJ) 40 mg DAILY IV 07/21/25 09:00 08/20/25 08:59 07/25/25 08:15 40 MG Pharmacy Profile Note (Pharmacy Communication) 1 each ONCE MISC 07/21/25 15:30 07/21/25 15:16 DC Piperacillin Sod/ Tazobactam Sod 50 ml @ 200 mls/hr ONCE STAT IVPB 07/20/25 19:15 07/20/25 19:29 DC 07/20/25 20:32 200 MLS/HR Piperacillin Sod/ Tazobactam Sod (Zosyn 3.375gm+NS 50ml) 3.375 gm Q12H IV 07/21/25 00:00 07/31/25 00:00 07/24/25 22:48 3.375 GM Potassium Chloride 100 ml @ 100 mls/hr AD PRN IV POTASSIUM PROTOCOL 07/24/25 08:30 08/23/25 08:29 Potassium Chloride (K-Dur/Klor-Con 20meq) 20 meq AD PRN PO POTASSIUM PROTOCOL 07/24/25 08:30 08/23/25 08:29 07/24/25 12:50 20 MEQ Potassium Chloride (KCl 10% Elixir 20meq/15ml) 20 meq AD PRN PO POTASSIUM PROTOCOL 07/24/25 08:30 08/23/25 08:29 Sodium Bicarbonate 150 meq/Sodium Chloride 1,150 ml @ 0 mls/hr Q0M IVP 07/21/25 14:00 08/20/25 13:59 Spironolactone (Aldactone 25mg) 25 mg BID PO 07/25/25 21:00 07/26/25 09:01 Thiamine HCl (Vitamin B-1) 100 mg DAILY IVP 07/22/25 21:00 08/21/25 20:59 07/25/25 08:15 100 MG Thiamine HCl 100 mg/Sodium Chloride 50 ml @ 100 mls/hr Q24H IM 07/21/25 15:30 07/21/25 16:25 DC Vancomycin HCl (Vancomycin 1g/ 250ml Kit) 1 gm ONCE STAT IV 07/20/25 21:23 07/20/25 21:26 DC 07/20/25 22:06 1 GM Vasopressin 20 units/Sodium Chloride 100 ml @ 0 mls/hr PROTOCOL IV 07/21/25 00:30 08/20/25 00:29 07/21/25 00:10 9 MLS/HR DIAGNOSTICS / RADIOLOGY: [ ] ASSESSMENT: Suspected Bowel Perforation POA Bilious peritonitis s/p Diagnostic laparoscopy, abdominal washout, drain placement and diverting loop ileostomy creation Diabetes Mellitus Type 2 POA Acute Kidney Injury POA Septic Shock POA Cirrhosis of liver POA Esophageal Varices Recent Robotic takedown of splenic flexure mobilization, robotic takedown of colovesical fistula with sigmoid colectomy and end-to-end anastomosis surgery PLAN: Bilious peritonitis status post Diagnostic laparoscopy, abdominal washout, drain placement and diverting loop ileostomy creation -She is able to tolerate the clear liquid diet -Continue close monitoring of the patient -continue physical therapy -Monitor CHRIS drain output -Continues with high output from CHRIS but it is clear serous, most likely related to her ascites from her history of liver cirrhosis -Continue Lactated Ringer's at 75 ml/hr for volume resuscitation and electrolyte replacement -continue Zosyn [day 4 ] and fluconazole [day 4] * Patient has ongoing abdominal pain, currently awaiting for the clinical symptoms to improve for the discharge in 24-48 hrs. 07/25/25 * Flexeril 5 mg t.i.d. has been started by the Surgery team. Bowel Perforation, Dehiscence of the anastomosis - Patient had repair of colo vesicular fistula with sigmoid colon resection and anastomosis on 07/09/25. - CT abdominal pelvis w/contrast done on 07/20/2025 showed Free air in the upper abdomen is seen, suggesting perforated bowel vs post surgical changes. No obstruction. -underwent Diagnostic laparoscopy, abdominal washout, drain placement and diverting loop ileostomy creation for biliary peritonitis Septic Shock -resolved -Her WBC during the presentation was 21.2 and today its 6.2 -lactic acid normal at 1.6 yesterday -blood and urine culture results are negative Acute Kidney Injury Resolved -Creatinine improved from 1.6-1.1-0.7. 07/25/25 -Initial FeNA is 0.1 %, probably secondary to dehydration and NSAIDs overuse. -initial Urine sodium is < 13 and urine creatinine is 132.17. -Avoid nephrotoxic agents, eg. NSAIDS. -Weight patient daily. -Monitor intake and output. Cirrhosis of liver -Patient has a past history of cirrhosis of liver. -Ammonia level was 33 which reduced from 40. 9/. - Liver functions are within normal limits. AST 23, ALT 12 and ALP 108. - Avoid NSAIDs and high dose acetaminophen. -Maintain appropriate volume of the patient. * Patient has been started on Spironolactone 25 mg b.i.d. and Lasix 20 mg once daily. 07/25/25 Supportive measures -Maintain IV fluids, correct electrolytes -Serial abdominal exams -Commercial Service Technician on avoidance of NSAIDS and other related triggers. -Monitor Vitals and perform morning labs regularly Continue GI prophylaxis with Pantop Continue DVT prophylaxis with SCDs, we will avoid heparin due to history of allergies to porcine, we will coordinate with surgery consult on initiation of other anticoagulants ATTESTATION BY PHYSICIAN I have seen and examined the patient. I reviewed the documentation, medical decision making, and treatment plan as noted by the resident provider above. I agree with the findings and plan of care. Miguel Conley MD PREET CARR MD Jul 25, 2025 13:25
[2025-07-25] MEDS: ALBUMIN HUMAN 25% 100 ML IV SCH (13:43)
[2025-07-25] MEDS: CYCLOBENZAPRINE HCL 10 MG TABLET PO SCH (13:43)
--- NOTE | 2025-07-25 15:00 | NUR ---
STOMA WAFER WITH COMPLETE OSTOMY BAG SYSTEM CHANGED AT THIS TIME STOMA PRODUCING PIECES OF FECES BROWN COLORED WITH LIQUID STOOL, DAUGHTER AT BEDSIDE ABLE TO OBSERVE PRTOCEDURE FOR INITIAL EDUCATION ON MEASUREMENT AND EQUIPMENT PREP PRIOR TO CHANGING OSTOMY BAG.
[2025-07-25 15:45] LABS: % IRON SATURATION 11.9 % (22-44); IRON, SERUM 20.0 mcg/dL (50-170)
--- NOTE | 2025-07-25 16:06 | PN ---
FOLLOWUP PROGRESS NOTE SUBJECTIVE: A 55-year-old female who has had a prolonged hospital course. The patient has a history of diabetes mellitus, hypertension. She is admitted to the hospital with bowel perforation. She is status post laparoscopy as well as ileostomy placement. She remains on a clear liquid diet. The patient has had acute on chronic renal failure in the hospital. Creatinine is actually much improved and she is being seen as a followup visit for all of the above. REVIEW OF SYSTEMS: GENERAL: The patient is feeling weak and tired. HEENT: No change in vision. No change in hearing. CARDIOVASCULAR: There are no current chest pains or palpitations. PULMONARY: There is no shortness of breath. GASTROINTESTINAL: As described above. MUSCULOSKELETAL: Complains of weakness. PHYSICAL EXAMINATION: VITAL SIGNS: Blood pressure 121/65. Pulse 80s. She is afebrile. GENERAL: Chronically ill female, much older than appearing. HEENT: Head is atraumatic. Pupils are equal, round, and reactive to light. Oropharynx is without exudate. Nares clear. NECK: There is no JVP. There is no thyromegaly. No masses. CARDIOVASCULAR: Regular. There is no S3 or S4 gallop. LUNGS: Coarse with equal thoracic movement. ABDOMEN: Soft, nondistended, and nontender. EXTREMITIES: There is no clubbing, no cyanosis. NEUROLOGICAL: She is awake. She is alert. LABORATORY DATA: White blood cell count 8000. BUN 20, creatinine 0.7, albumin is 1.6. Hemoglobin 10, hematocrit 30. IMPRESSION: * Acute on chronic renal failure. * Bowel obstruction, status post surgery. * Diabetes mellitus. * Hypertension. * Anemia. PLAN: The patient's renal function is much improved. The patient has become much more hemodynamically stable. She remains on a clear liquid diet. Workup is ongoing per Surgical service. The patient is pending transfer out of the ICU. Electrolytes have all been aggressively repleted. We will follow closely. TID: [id number] RECEIPT: [id number]
[2025-07-25 16:59] LABS: APPEARANCE BODY FLUID SLIGHTLY CLOUDY (CLEAR); COLOR,BODY FLUID LT YELLOW (LT YELLOW); SPECIMENTYPE,BODY FLUID PERITONEAL; TOTAL VOLUME,BODY FLUID 100 mL
[2025-07-25 17:01] LABS: BODY FLUID RBC 702 /cu. mm.; BODY FLUID WBC 1085 /cu. mm.
[2025-07-25] MEDS: ALBUMIN HUMAN 25% 100 ML IV ONE (17:05)
[2025-07-25 17:11] LABS: PH, BODY FLUID 8
[2025-07-25 18:31] LABS: BF LYMPHOCYTE 4 %; BF NEUTROPHIL 94.0 %; BF OTHER CELLS 2; BF TOTAL CELLS COUNTED 100
[2025-07-25] MEDS: SPIRONOLACTONE 25 MG TAB PO SCH (20:48)
[2025-07-26] VITALS (7 sets, daily range): BP systolic 100–112; BP diastolic 48–72; PULSE 70–86; RESP 18; TEMP 98.1–99.5; O2SAT 97
[2025-07-26 03:25] LABS: IMMATURE GRANULOCYTE ABSOLUTE 0.54 K/uL (0-1); NUCLEATED RED BLOOD CELLS 0.3 % (0.0-0.19); PLATELET COUNT (AUTO) 100 K/uL (130-400); RED BLOOD CELL COUNT(AUTO) 3.05 MIL/uL (4.00-5.50); RED CELL DISTRIBUTION WIDTH 17.7 % (11.0-15.5); WHITE BLOOD COUNT (AUTO) 7.3 K/uL (4.8-10.8)
[2025-07-26 03:42] LABS: ASPARTATE AMINOTRANSFERASE 31.0 U/L (10-37); CREATININE 0.6 mg/dL (0.5-1.0); GLOMERULAR FILTR. RATE CALC 105.0 mL/min (>90); GLUCOSE,RANDOM 108.0 mg/dL (70-105); SODIUM SERUM 137.0 mmol/L (136-145); TOTAL PROTEIN, SERUM 4.8 g/dL (6.0-8.3); UREA NITROGEN, BLOOD 11.0 mg/dL (7-18)
--- NOTE | 2025-07-26 09:41 | PN ---
[facility] PROGRESS NOTE Date of Service: Jul 26, 2025 Time of Service: :22 SUBJECTIVE: Ms. Gray is a 55-year-old female that was seen and examined today on 07/20/2025. Patient reports that she came to the emergency department with a chief complaint of abdominal pain. Onset was 07/09/2025. Location is all four quadrants. Duration is constant. Character is described as pressure and " like I have a lot of gas trapped. " there was no alleviating factors. There was no aggravating factors. Patient reports associated abdominal swelling. 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 After the discharge she was taking pain medications and her condition started worsening after few days. She is in constant follow up with Dr Gann. Today in the emergency department WBCs 21.2, left shift neutrophils 85.5%, BUN 26, creatinine 3.1, GFR 17, lactic acid 8.0, no urinalysis has been collected or sent to lab, CT of abdomen and pelvis showed of free air in the abdomen which could be a suspected bowel perforation versus postsurgical changes, moderate ascites, fissure post surgical changes. Chest x-ray shows right pleural effusion. Additionally patient had a heart rate of 125, respirations 26, together with leukocytosis and lactic acidosis patient met clinical sepsis criteria additionally patient's blood pressure dropped to 85/50 mmHg requiring vasopressor support therefore meeting criteria for septic shock. Patient will be admitted to the intensive care unit. Emergency room physician spoke with patient's surgeon, Dr. Gann who requested patient be admitted under hospitalist service and she will follow this case along. 07/21/25 Patient was evaluated at the bedside. She was accompanied by her daughter. She is oriented to the time, place and person. She complained of abdominal pain in all the quadrants. She hasn't had bowel movement since Saturday and also is unable to pass flatus at this time. She has guarding, rigidity and tenderness all over the abdomen, showing the signs of peritonitis. She was seen by Dr Gann this mo rning and is planned to be taken to OR this afternoon. Dueñas catheter is in place, as she wasn't able to pass the urine. There is no fever, chills and any other signs of infection. 07/22/25 Patient was evaluated at the bedside. She was accompanied by her daughter. She is oriented to the time, place and person. She underwent Diagnostic laparoscopy, abdominal washout, drain placement and diverting loop ileostomy creation, The procedure revealed Bilious peritonitis, 2 mm perforation of the colonic anastomosis. She is hemodynamically stable with Blood pressure of 110/73 and HR of 83. Currently she complains of abdominal pain which is getting better than yesterday, its 3-4/10 intensity. There is no rigidity. She is anxious about the outcomes and had discussion regarding her current clinical status and lab parameters. There is no fever, chills and any other signs of infection. 07/23/25 Patient was evaluated at the bedside. She was accompanied by her daughter. She is oriented to the time, place and person. She status post diagnostic laparoscopy, abdominal washout, drain placement and diverting loop ileostomy creation. Currently she complains of abdominal pain which is 5/10 intensity. She also complaints of mild lower back pain There is no fever, chills and any other signs of infection. She has CHRIS drain in-situ with clear fluid along with colostomy bag. She is currently tolerating clear liquid diet. 07/24/2025 Patient is seen and examined at the bedside. Vitals blood pressure ranging in 100s/50s, pulse rate 50s, SpO2 greater than 95% on room air. She mentions about experiencing pressure-like discomfort on the right side of the abdomen and pain when she tries to eat. No acute events last night. She denies fever, chills, nausea, vomiting, chest pain. CHRIS output approximately 100cc/hr, serosanguineous fluid. Ileostomy bag in place. She is tolerating clear liquid diet without any nausea/vomiting. Labs hemoglobin 9.8, BUN 38, creatinine improved from 1.6-1.1. 07/25/2025 Patient is seen and examined at the bedside. She complains of abdominal pain which is 7/10 in intensity. No acute events last night. She denies fever, chills, nausea, vomiting, chest pain. CHRIS output approximately 100cc/hr, serosanguineous fluid. Ileostomy bag in place. The patient has been started on spironolactone 25mg BID and Lasix 20 mg once daily. There is high output from CHRIS but it is clear serous, most likely related to her ascites from her history of liver cirrhosis. She is tolerating clear liquid diet without any nausea/vomiting. 07/26/2025 Patient is seen and examined at the bedside. She complains of abdominal pain which remains constant. No acute events last night. She denies fever, chills, nausea, vomiting, chest pain. Patient is status post with a CHRIS drain. The drain has been collecting the serosanguineous fluid secondary to ascites. She has been tolerating liquid diet and her diet has been advanced to soft diet. She still nielsen s bloating for which probiotics and fibers has been recommended. Hemoglobin has gradually trended down to 9.2 and was given IV Venofer. Patient to get up and ambulate and work with physical therapy. REVIEW OF SYSTEMS CONSTITUTIONAL: No fever, chills, or night sweats. NEUROLOGICAL: Denies headache, sensory and motor deficit. CARDIOVASCULAR: Denies any exertional angina, dyspnea on exertion, palpitations. PULMONARY: Denies any shortness of breath, cough, phlegm/sputum, hemoptysis, pleuritic chest pain. GASTROINTESTINAL: Patient complains of diffuse abdominal pain 7/10 intensity. She also has bloating. Denies nausea, vomiting. GENITOURINARY: Denies frequency, urgency, nocturia, hematuria or incontinence. PHYSICAL EXAM GENERAL APPEARANCE: The patient is alert, awake and oriented and bedbound. NEUROLOGICAL: No sensory and motor deficits. CHEST: Normal chest expansion. LUNGS: Normal Vesicular breath sound. Absence of any rales, rhonchi or any wh eezing. CARDIOVASCULAR: Regular. S1 and S2 normal. No appreciable rubs, murmurs or gallops. ABDOMEN: Abdomen is soft and slightly tender. Absence of guarding, rigidity and rebound tenderness. GENITOURINARY: No suprapubic tenderness. No costovertebral angle tenderness. Vital Signs (last 8hr) Date Time Temp Pulse Resp B/P (MAP) Pulse Ox O2 Delivery O2 Flow Rate FiO2 07/26/25 04:00 98.2 80 18 110/62 94 Nasal Cannula LABS: Laboratory: Test 07/26/25 05:15 07/26/25 03:00 07/25/25 15:03 07/25/25 12:12 Range/Units Whole Blood Glucose 102 70-110 MG/DL White Blood Count 7.3 4.8-10.8 K/uL Red Blood Count 3.05 L 4.00-5.50 MIL/uL Hemoglobin 9.2 L 12.0-16.0 g/dL Hematocrit 28.3 L 36-48 % Mean Corpuscular Volume 92.8 79-99 fL Mean Corpuscular Hemoglobin 30.2 27.0-33.0 pg Mean Corpuscular Hemoglobin Concent 32.5 32.0-36.0 g/dL Red Cell Distribution Width 17.7 H 11.0-15.5 % Platelet Count 100 L 130-400 K/uL Mean Platelet Volume 10.4 7.5-10.5 fL Immature Granulocyte % (Auto) 7.4 H 0-1 % Neutrophils (%) (Auto) 67.1 40.0-77.0 % Lymphocytes (%) (Auto) 11.7 L 21.0-51.0 % Monocytes (%) (Auto) 9.9 3.0-13.0 % Eosinophils (%) (Auto) 3.4 0.0-8.0 % Basophils (%) (Auto) 0.5 0.0-5.0 % Neutrophils # (Auto) 4.9 1.8-7.7 K/uL Lymphocytes # (Auto) 0.9 L 1.0-4.8 K/uL Monocytes # (Auto) 0.7 0.1-1.0 K/uL Eosinophils # (Auto) 0.25 0.00-0.70 K/uL Basophils # (Auto) 0.04 0.00-0.20 K/uL Absolute Immature Granulocyte (auto 0.54 0-1 K/uL Nucleated Red Blood Cells 0.3 H 0.0-0.19 % Sodium Level 137 136-145 mmol/L Potassium Level 3.9 3.5-5.1 mmol/L Chloride Level 104 101-111 mmol/L Carbon Dioxide Level 28 21-32 mmol/L Blood Urea Nitrogen 11 7-18 mg/dL Creatinine 0.6 0.5-1.0 mg/dL Glomerular Filtration Rate Calc 105 >90 mL/min Random Glucose 108 H 70-105 mg/dL Total Calcium 7.8 L 8.5-10.1 mg/dL Total Bilirubin 0.9 # 0.2-1.0 mg/dL Aspartate Amino Transf (AST/SGOT) 31 10-37 U/L Alanine Aminotransferase (ALT/SGPT) 17 12-78 U/L Alkaline Phosphatase 68 50-136 U/L Total Protein 4.8 L 6.0-8.3 g/dL Albumin 2.2 #L 3.5-5.0 g/dL Free Thyroxine (T4) Direct 1.45 0.76-1.46 ng/dL Free Triiodothyronine (T3) pg/mL 1.68 L 2.18-3.98 pg/mL Reticulocyte Count (auto) 2.64094 H 0.42-2.23 % Immature Reticulocyte Fraction 47.10 H 0.18-0.48 % Iron Level 20 L 50-170 mcg/dL Total Iron Binding Capacity 167 L 250-450 mcg/dL Percent Iron Saturation 11.9 L 22-44 % Ferritin 129 15-150 ng/mL Vitamin B12 Level 5963 H 193-986 pg/mL Body Fluid Source PERITONEAL Body Fluid Volume 100 mL Body Fluid Color LT YELLOW LT YELLOW Body Fluid pH 8 Body Fluid Supernatant Appearance SLIGHTLY CLOUDY H CLEAR Body Fluid WBC 1085 /cu. mm. Body Fluid RBC 702 /cu. mm. Body Fluid Neutrophils 94.0 % Body Fluid Lymphocytes 4 % Body Fluid Other Cells (%) 2 Test 07/25/25 03:59 Range/Units Magnesium Level 1.80 1.80-2.40 mg/dL Current Medications Medications (Trade) Dose Ordered Sig/Gregory Route PRN Reason Start Time Stop Time Status Last Admin Dose Admin Acetaminophen (TYLenol 650MG SUPPOSITORY) 650 mg Q6H PRN RC MILD PAIN (1-3) 07/21/25 00:00 08/20/25 00:00 Albumin Human 100 ml @ 0 mls/hr ONCE IV 07/25/25 12:00 07/26/25 11:59 07/25/25 13:43 100 MLS/HR Cyclobenzaprine HCl (Cyclobenzaprine HCl) 5 mg TID PO 07/25/25 14:00 07/26/25 14:00 07/26/25 08:55 5 MG Fluconazole/ Sodium Chloride (DiFLUCan 200 MG/ NS 100 ML) 200 mg Q24H IVPB 07/21/25 21:00 08/20/25 20:59 07/25/25 20:47 200 MG Furosemide (LASix 20MG TAB) 20 mg DAILY PO 07/25/25 11:00 08/24/25 10:59 07/26/25 08:56 20 MG Hydromorphone HCl (DiLAUDid 0.5MG INJ) 0.5 mg Q4H PRN IVP SEVERE PAIN (7-10) 07/24/25 10:00 07/29/25 09:59 07/26/25 03:09 0.5 MG Insulin Human Regular (humuLIN R 100 UNIT/ML 3ML) INSULIN SLIDING SCAL... ACHS SQ 07/21/25 07:30 08/20/25 07:29 07/22/25 20:40 3 UNIT Lactated Ringer's 1,000 ml @ 75 mls/hr [id number] IV 07/21/25 00:00 07/21/25 13:17 DC 07/21/25 02:57 75 MLS/HR Lactated Ringer's 1,000 ml @ 75 mls/hr [id number] IV 07/21/25 13:30 07/24/25 11:09 DC 07/24/25 09:27 75 MLS/HR Magnesium Sulfate 50 ml @ 0 mls/hr PROTOCOL PRN IV MAGNESIUM PROTOCOL 07/21/25 07:00 08/20/25 06:59 07/25/25 09:36 25 MLS/HR Metronidazole/ Sodium Chloride (flaGYL) 500 mg Q8H IV 07/21/25 14:00 07/21/25 13:40 DC Morphine Sulfate (morPHINE 2MG SYG) 2 mg Q4H PRN IVP SEVERE PAIN (7-10) 07/21/25 00:30 07/21/25 13:18 DC 07/21/25 04:46 2 MG Morphine Sulfate (morPHINE 4MG SYG) 4 mg Q3H PRN IV MODERATE PAIN (4-6) 07/21/25 13:30 07/28/25 13:29 07/25/25 23:39 4 MG Norepinephrine 250 ml @ 0 mls/hr PROTOCOL IV 07/20/25 23:30 08/19/25 23:29 07/21/25 10:56 18.45 MLS/HR Ondansetron HCl (zoFRAN 4MG INJ) 4 mg Q4H PRN IVP NAUSEA 07/21/25 13:30 08/20/25 13:29 Ondansetron HCl (zoFRAN 4MG INJ) 4 mg Q6H PRN IV NAUSEA/VOMITING 07/21/25 00:00 07/21/25 13:18 DC Pantoprazole Sodium (PROTonix 40MG INJ) 40 mg DAILY IV 07/21/25 09:00 08/20/25 08:59 07/26/25 08:55 40 MG Pharmacy Profile Note (Pharmacy Communication) 1 each ONCE MISC 07/21/25 15:30 07/21/25 15:16 DC Piperacillin Sod/ Tazobactam Sod 50 ml @ 200 mls/hr ONCE STAT IVPB 07/20/25 19:15 07/20/25 19:29 DC 07/20/25 20:32 200 MLS/HR Piperacillin Sod/ Tazobactam Sod (Zosyn 3.375gm+NS 50ml) 3.375 gm Q12H IV 07/21/25 00:00 07/31/25 00:00 07/25/25 23:39 3.375 GM Potassium Chloride 100 ml @ 100 mls/hr AD PRN IV POTASSIUM PROTOCOL 07/24/25 08:30 08/23/25 08:29 Potassium Chloride (K-Dur/Klor-Con 20meq) 20 meq AD PRN PO POTASSIUM PROTOCOL 07/24/25 08:30 08/23/25 08:29 07/24/25 12:50 20 MEQ Potassium Chloride (KCl 10% Elixir 20meq/15ml) 20 meq AD PRN PO POTASSIUM PROTOCOL 07/24/25 08:30 08/23/25 08:29 Sodium Bicarbonate 150 meq/Sodium Chloride 1,150 ml @ 0 mls/hr Q0M IVP 07/21/25 14:00 08/20/25 13:59 Spironolactone (Aldactone 25mg) 25 mg BID PO 07/25/25 21:00 07/26/25 09:01 DC 07/26/25 08:56 25 MG Thiamine HCl (Vitamin B-1) 100 mg DAILY IVP 07/22/25 21:00 08/21/25 20:59 07/26/25 08:55 100 MG Thiamine HCl 100 mg/Sodium Chloride 50 ml @ 100 mls/hr Q24H IM 07/21/25 15:30 07/21/25 16:25 DC Vancomycin HCl (Vancomycin 1g/ 250ml Kit) 1 gm ONCE STAT IV 07/20/25 21:23 07/20/25 21:26 DC 07/20/25 22:06 1 GM Vasopressin 20 units/Sodium Chloride 100 ml @ 0 mls/hr PROTOCOL IV 07/21/25 00:30 08/20/25 00:29 07/21/25 00:10 9 MLS/HR DIAGNOSTICS / RADIOLOGY: [ ] ASSESSMENT: Suspected Bowel Perforation POA Bilious peritonitis s/p Diagnostic laparoscopy, abdominal washout, drain placement and diverting loop ileostomy creation Diabetes Mellitus Type 2 POA Acute Kidney Injury POA Septic Shock POA Cirrhosis of liver POA Esophageal Varices Recent Robotic takedown of splenic flexure mobilization, robotic takedown of colovesical fistula with sigmoid colectomy and end-to-end anastomosis surgery PLAN: Bilious peritonitis status post Diagnostic laparoscopy, abdominal washout, drain placement and diverting loop ileostomy creation She is able to tolerate the clear liquid diet -Continue close monitoring of the patient -continue physical therapy -Monitor CHRIS drain output -Continues with high output from CHRIS but it is clear serous, most likely related to her ascites from her history of liver cirrhosis -Continue Lactated Ringer's at 75 ml/hr for volume resuscitation and electrolyte replacement -continue Zosyn [day 4 ] and fluconazole [day 4] -Patient has ongoing abdominal pain, currently awaiting for the clinical symptoms to improve for the discharge in 24-48 hrs. 07/25/25 -Flexeril 5 mg t.i.d. has been started by the Surgery team. * Hemoglobin has gradually trended down to 9.2 and planning to start her on IV Venofer. 07/26/25 * Advance diet to Soft diet * Probiotics and Fibers have been added for bloating. * As per the Surgery: Waiting for the symptoms to resolve and see if she can tolerate the advanced diet for proper discharge timeline. * Protonix IV increased to twice daily. Bowel Perforation, Dehiscence of the anastomosis - Patient had repair of colo vesicular fistula with sigmoid colon resection and anastomosis on 07/09/25. - CT abdominal pelvis w/contrast done on 07/20/2025 showed Free air in the upper abdomen is seen, suggesting perforated bowel vs post surgical changes. No obstruction. -underwent Diagnostic laparoscopy, abdominal washout, drain placement and diverting loop ileostomy creation for biliary peritonitis Septic Shock -resolved -Her WBC during the presentation was 21.2 and today its 7.3. 07/26/25 -lactic acid normal at 1.6 yesterday -blood and urine culture results are negative Acute Kidney Injury Resolved -Creatinine improved from 1.6-1.1-0.7-0.6. 07/26/25 -Initial FeNA is 0.1 %, probably secondary to dehydration and NSAIDs overuse. -initial Urine sodium is < 13 and urine creatinine is 132.17. -Avoid nephrotoxic agents, eg. NSAIDS. -Weight patient daily. -Monitor intake and output. Cirrhosis of liver -Patient has a past history of cirrhosis of liver. -Ammonia level was 33 which reduced from 40. 07/23/25. - Liver functions are within normal limits. AST 23, ALT 12 and ALP 108. - Avoid NSAIDs and high dose acetaminophen. -Maintain appropriate volume of the patient. * Patient has been started on Spironolactone 25 mg b.i.d. and Lasix 20 mg once daily. 07/25/25 Supportive measures -Maintain IV fluids, correct electrolytes -Serial abdominal exams -Paper Stripper on avoidance of NSAIDS and other related triggers. -Monitor Vitals and perform morning labs regularly Continue GI prophylaxis with Pantop Continue DVT prophylaxis with SCDs, we will avoid heparin due to history of allergies to porcine, we will coordinate with surgery consult on initiation of other anticoagulants ATTESTATION BY PHYSICIAN I have seen and examined the patient. I reviewed the documentation, medical decision making, and treatment plan as noted by the resident provider above. I agree with the findings and plan of care. Hiren Castillo MD [facility] Jul 26, 2025 09:41
--- NOTE | 2025-07-26 09:51 | PN ---
Postop day five after laparoscopic washout and drain placement and ileostomy creation. No acute events reported per nursing. Patient reports that every time she eats her full liquids her stomach gets bloated. She is still having the flank pain. The drain output is still high and leaking around the drain site whenever it is full. Ostomy leak to one time. Vital signs reviewed unstable no fevers Patient in no distress. Incisions clean dry and intact Ostomy is pink patent and productive very liquid CHRIS drain is serosanguineous ascites fluid Tender to the flanks but no rebound no peritonitis Assessment and plan We will increase Protonix to b.i.d.. We will add lactobacillus to help patient with her bloating. We will add fiber to bulk up the fluid from the ostomy output. We will med lock her fluids. Continue with diuretics to decrease the ascites fluids. We will increase her diet to a soft GI diet. At this time patient is still not cleared for discharge. We will continue to follow. Patient to get up and ambulate and work with physical therapy. Aggressive pulmonary toilet. Vitals/Labs Vital Signs Date Time Temp Pulse Resp B/P (MAP) Pulse Ox O2 Delivery O2 Flow Rate FiO2 07/26/25 08:00 98.2 70 18 112/72 97 Room Air 07/25/25 20:45 0 21 Laboratory Tests 07/26/25 03:00 Medications Current Medications Sodium Chloride 1,000 ml @ 0 mls/hr ONCE ONCE IV; Start 07/20/25 at 18:30; Stop 07/20/25 at 18:31; Status DC Piperacillin Sod/ Tazobactam Sod 50 ml @ 200 mls/hr ONCE STAT IVPB Last administered on 07/20/25at 20:32; Start 07/20/25 at 19:15; Stop 07/20/25 at 19:29; Status DC Sodium Chloride 2,109 ml @ 703 mls/hr ONCE ONCE IV Last administered on 07/20/25at 20:28; Start 07/20/25 at 19:30; Stop 07/20/25 at 22:29; Status DC Iohexol 75 ml STK-MED ONCE IV; Start 07/20/25 at 20:31; Stop 07/20/25 at 20:31; Status DC Vancomycin HCl 1 gm ONCE STAT IV Last administered on 07/20/25at 22:06; Start 07/20/25 at 21:23; Stop 07/20/25 at 21:26; Status DC Morphine Sulfate 4 mg ONCE ONCE IVP Last administered on 07/20/25at 23:15; Start 07/20/25 at 23:30; Stop 07/20/25 at 23:31; Status DC Ondansetron HCl 4 mg ONCE ONCE IVP Last administered on 07/20/25at 23:14; Start 07/20/25 at 23:30; Stop 07/20/25 at 23:31; Status DC Norepinephrine 250 ml @ 0 mls/hr PROTOCOL IV Last administered on 07/21/25at 10:56; Start 07/20/25 at 23:30; Stop 08/19/25 at 23:29 Piperacillin Sod/ Tazobactam Sod 3.375 gm Q12H IV Last administered on 07/25/25at 23:39; Start 07/21/25 at 00:00; Stop 07/31/25 at 00:00 Acetaminophen 650 mg Q6H PRN RC; Start 07/21/25 at 00:00; Stop 08/20/25 at 00:00 Pantoprazole Sodium 40 mg DAILY IV Last administered on 07/26/25at 08:55; Start 07/21/25 at 09:00; Stop 07/26/25 at 09:31; Status DC Ondansetron HCl 4 mg Q6H PRN IV; Start 07/21/25 at 00:00; Stop 07/21/25 at 13:18; Status DC Morphine Sulfate 2 mg Q4H PRN IVP Last administered on 07/21/25at 04:46; Start 07/21/25 at 00:30; Stop 07/21/25 at 13:18; Status DC Lactated Ringer's 1,000 ml @ 75 mls/hr [id number] IV Last administered on 07/21/25at 02:57; Start 07/21/25 at 00:00; Stop 07/21/25 at 13:17; Status DC Insulin Human Regular INSULIN SLIDING SCAL... ACHS SQ Last administered on 07/22/25at 20:40; Start 07/21/25 at 07:30; Stop 08/20/25 at 07:29 Vasopressin 20 units/Sodium Chloride 100 ml @ 0 mls/hr PROTOCOL IV Last administered on 07/21/25at 00:10; Start 07/21/25 at 00:30; Stop 08/20/25 at 00:29 Vasopressin 20 units STK-MED ONCE .ROUTE; Start 07/21/25 at 00:10; Stop 07/21/25 at 00:11; Status DC Magnesium Sulfate 50 ml @ 0 mls/hr PROTOCOL PRN IV Last administered on 07/25/25at 09:36; Start 07/21/25 at 07:00; Stop 08/20/25 at 06:59 Acetaminophen 100 ml @ As Directed STK-MED ONCE .ROUTE; Start 07/21/25 at 09:42; Stop 07/21/25 at 09:42; Status DC Famotidine 20 mg STK-MED ONCE IV; Start 07/21/25 at 09:42; Stop 07/21/25 at 09:42; Status DC Albumin Human 500 ml @ As Directed STK-MED ONCE IV; Start 07/21/25 at 09:45; Stop 07/21/25 at 09:45; Status DC Phenylephrine HCl 10 mg STK-MED ONCE IV; Start 07/21/25 at 09:48; Stop 07/21/25 at 09:48; Status DC Dexamethasone Sodium Phosphate 10 mg STK-MED ONCE .ROUTE; Start 07/21/25 at 09:52; Stop 07/21/25 at 09:52; Status DC Ondansetron HCl 4 mg STK-MED ONCE .ROUTE; Start 07/21/25 at 09:52; Stop 07/21/25 at 09:52; Status DC Lidocaine HCl 100 mg STK-MED ONCE .ROUTE; Start 07/21/25 at 09:52; Stop 07/21/25 at 09:52; Status DC Succinylcholine Chloride 200 mg STK-MED ONCE .ROUTE; Start 07/21/25 at 09:53; Stop 07/21/25 at 09:53; Status DC Glycopyrrolate 1 mg STK-MED ONCE .ROUTE; Start 07/21/25 at 09:53; Stop 07/21/25 at 09:53; Status DC Fentanyl Citrate 100 mcg STK-MED ONCE .ROUTE; Start 07/21/25 at 09:54; Stop 07/21/25 at 09:54; Status DC Propofol 200 mg STK-MED ONCE IV; Start 07/21/25 at 09:54; Stop 07/21/25 at 09:54; Status DC Neostigmine Methylsulfate 10 mg STK-MED ONCE IV; Start 07/21/25 at 09:54; Stop 07/21/25 at 09:54; Status DC Rocuronium [place] 50 mg STK-MED ONCE .ROUTE; Start 07/21/25 at 09:54; Stop 07/21/25 at 09:54; Status DC Ketamine HCl 50 mg STK-MED ONCE .ROUTE; Start 07/21/25 at 09:55; Stop 07/21/25 at 09:56; Status DC Epinephrine HCl 1 mg STK-MED ONCE .ROUTE; Start 07/21/25 at 10:03; Stop 07/21/25 at 10:03; Status DC Midazolam HCl 2 mg STK-MED ONCE .ROUTE; Start 07/21/25 at 10:05; Stop 07/21/25 at 10:05; Status DC Indocyanine Green 25 mg STK-MED ONCE IJ; Start 07/21/25 at 10:49; Stop 07/21/25 at 10:49; Status DC Ephedrine Sulfate 50 mg STK-MED ONCE .ROUTE; Start 07/21/25 at 11:17; Stop 07/21/25 at 11:17; Status DC Bupivacaine HCl 5 mg STK-MED ONCE .ROUTE Last administered on 07/21/25at 12:14; Start 07/21/25 at 11:49; Stop 07/21/25 at 11:49; Status DC Sodium Bicarbonate 200 ml @ As Directed STK-MED ONCE .ROUTE; Start 07/21/25 at 12:19; Stop 07/21/25 at 12:19; Status DC Fentanyl Citrate 100 mcg STK-MED ONCE .ROUTE; Start 07/21/25 at 12:23; Stop 07/21/25 at 12:23; Status DC Phytonadione 10 mg STK-MED ONCE .ROUTE; Start 07/21/25 at 13:05; Stop 07/21/25 at 13:05; Status DC Lactated Ringer's 1,000 ml @ 75 mls/hr [id number] IV Last administered on 07/24/25at 09:27; Start 07/21/25 at 13:30; Stop 07/24/25 at 11:09; Status DC Morphine Sulfate 4 mg Q3H PRN IV Last administered on 07/25/25at 23:39; Start 07/21/25 at 13:30; Stop 07/28/25 at 13:29 Ondansetron HCl 4 mg Q4H PRN IVP; Start 07/21/25 at 13:30; Stop 08/20/25 at 13:29 Fentanyl Citrate 100 mcg STK-MED ONCE .ROUTE; Start 07/21/25 at 13:26; Stop 07/21/25 at 13:26; Status DC Sodium Bicarbonate 150 meq/Sodium Chloride 1,150 ml @ 0 mls/hr Q0M IVP; Start 07/21/25 at 14:00; Stop 07/26/25 at 09:31; Status DC Sodium Bicarbonate 100 meq ONCE ONCE IV; Start 07/21/25 at 14:00; Stop 07/21/25 at 14:23; Status DC Metronidazole/ Sodium Chloride 500 mg Q8H IV; Start 07/21/25 at 14:00; Stop 07/21/25 at 13:40; Status DC Fluconazole/ Sodium Chloride 200 mg Q24H IVPB Last administered on 07/25/25at 20:47; Start 07/21/25 at 21:00; Stop 08/20/25 at 20:59 Pharmacy Profile Note 1 each ONCE MISC; Start 07/21/25 at 15:30; Stop 07/21/25 at 15:16; Status DC Thiamine HCl 100 mg/Sodium Chloride 50 ml @ 100 mls/hr Q24H IM; Start 07/21/25 at 15:30; Stop 07/21/25 at 16:25; Status DC Sodium Bicarbonate 100 meq ONCE ONCE IV Last administered on 07/21/25at 16:42; Start 07/21/25 at 16:30; Stop 07/21/25 at 16:31; Status DC Thiamine HCl 100 mg DAILY IVP Last administered on 07/26/25at 08:55; Start 07/22/25 at 21:00; Stop 08/21/25 at 20:59 Diatrizoate Meglum/ Diatrizoate Sod 30 ml STK-MED ONCE .ROUTE; Start 07/23/25 at 15:13; Stop 07/23/25 at 15:13; Status DC Potassium Chloride 100 ml @ 100 mls/hr AD PRN IV; Start 07/24/25 at 08:30; Stop 08/23/25 at 08:29 Potassium Chloride 20 meq AD PRN PO; Start 07/24/25 at 08:30; Stop 08/23/25 at 08:29 Potassium Chloride 20 meq AD PRN PO Last administered on 07/24/25at 12:50; Start 07/24/25 at 08:30; Stop 08/23/25 at 08:29 Hydromorphone HCl 0.5 mg Q4H PRN IVP Last administered on 07/26/25at 03:09; Start 07/24/25 at 10:00; Stop 07/29/25 at 09:59 Spironolactone 25 mg BID PO Last administered on 07/26/25at 08:56; Start 07/25/25 at 21:00; Stop 07/26/25 at 09:01; Status DC Albumin Human 100 ml @ 0 mls/hr ONCE ONCE IV Last administered on 07/25/25at 17:05; Start 07/25/25 at 10:30; Stop 07/25/25 at 10:31; Status DC Albumin Human 100 ml @ 0 mls/hr ONCE IV Last administered on 07/25/25at 13:43; Start 07/25/25 at 12:00; Stop 07/26/25 at 11:59 Cyclobenzaprine HCl 5 mg TID PO Last administered on 07/26/25at 08:55; Start 07/25/25 at 14:00; Stop 07/26/25 at 14:00 Furosemide 20 mg DAILY PO Last administered on 07/26/25at 08:56; Start 07/25/25 at 11:00; Stop 08/24/25 at 10:59 Pantoprazole Sodium 40 mg BID IV; Start 07/26/25 at 21:00; Stop 08/20/25 at 08:59 Psyllium Hydrophilic Mucilloid 1 tbs BID PO; Start 07/26/25 at 21:00; Stop 08/25/25 at 20:59 Lactobacillus Rhamnosus 1 each DAILY20 PO; Start 07/26/25 at 20:00; Stop 08/25/25 at 19:59 SUSAN JHAVERI MD Jul 26, 2025 09:51
--- NOTE | 2025-07-26 15:09 | PN ---
NEPHROLOGY PROGRESS NOTE Date/Time Patient Seen: Jul 26, 2025 SUBJECTIVE: This is a 55-year-old female with a past medical history of diabetes mellitus type 2, liver cirrhosis, esophageal varices. He presented to the emergency room with chief complain of abdominal pain. CT of the abdomen showed moderate small bowel enteritis with free air in the upper abdomen, suggesting perforated bowel versus post surgical changes. No obs truction. S/p diagnostic laparoscopy, abdominal washout, drain placement and diverting loop ileostomy creation with CHRIS drain 10 [place] on 07/21 Vasopressors have been discontinued She was noted to have elevated BUN/creatinine We are consulted for renal failure Renal function is stable Electrolytes are stable. Tolerating diet She was seen in the medial floor, in no acute distress No family at the bedside REVIEW OF SYSTEMS: GENERAL: Positive for abdominal pain and nausea NEUROLOGIC: Negative for any blurry vision, blind spots, double vision, facial asymmetry, dysphagia, dysarthria, hemiparesis, hemisensory deficits, vertigo, ataxia. HEENT: Negative for any head trauma, neck trauma, neck stiffness, photophobia, phonophobia, sinusitis, rhinitis. CARDIAC: Negative for any chest pain, dyspnea on exertion, paroxysmal nocturnal dyspnea, peripheral edema. PULMONARY: Negative for any shortness of breath, wheezing, COPD, or TB exposure. GASTROINTESTINAL: Negative for any abdominal pain, nausea, vomiting, bright red blood per rectum, melena. GENITOURINARY: Negative for any dysuria, hematuria, incontinence. INTEGUMENTARY: Negative for any rashes, cuts, insect bites. RHEUMATOLOGIC: Negative for any joint pains, photosensitive rashes, history of vasculitis or kidney problems. HEMATOLOGIC: Negative for any abnormal bruising, frequent infections or bleeding. Vital Signs (last 8hr) Date Time Temp Pulse Resp B/P (MAP) Pulse Ox O2 Delivery O2 Flow Rate FiO2 07/26/25 12:00 98.8 77 18 111/57 94 Room Air 07/26/25 08:00 98.2 70 18 112/72 97 Room Air PHYSICAL EXAM: GENERAL: Alert and oriented x 3. No acute distress. Well-nourished. EYES: EOMI. Anicteric. HENT: Moist mucous membranes. No scleral icterus. No cervical lymphadenopathy. LUNGS: Clear to auscultation bilaterally. No accessory muscle use. CARDIOVASCULAR: Regular rate and rhythm. No murmur. No JVD. ABDOMEN: Soft, non-tender and non-distended. No palpable masses. EXTREMITIES: No edema. Non-tender SKIN: No rashes or lesions. Warm. NEUROLOGIC: No focal neurological deficits. CN II-XII grossly intact, but not individually tested. PSYCHIATRIC: Cooperative. Appropriate mood and affect. Current Medications Medications (Trade) Dose Ordered Sig/Gregory Route Start Time Stop Time Status Last Admin Dose Admin Albumin Human 100 ml @ 0 mls/hr ONCE IV 07/25/25 12:00 07/26/25 11:59 DC 07/25/25 13:43 100 MLS/HR Cyclobenzaprine HCl (Cyclobenzaprine HCl) 5 mg TID PO 07/25/25 14:00 07/26/25 14:00 DC 07/26/25 14:19 5 MG Fluconazole/ Sodium Chloride (DiFLUCan 200 MG/ NS 100 ML) 200 mg Q24H IVPB 07/21/25 21:00 08/20/25 20:59 07/25/25 20:47 200 MG Furosemide (LASix 20MG TAB) 20 mg DAILY PO 07/25/25 11:00 08/24/25 10:59 07/26/25 08:56 20 MG Insulin Human Regular (humuLIN R 100 UNIT/ML 3ML) INSULIN SLIDING SCAL... ACHS SQ 07/21/25 07:30 08/20/25 07:29 07/22/25 20:40 3 UNIT Lactated Ringer's 1,000 ml @ 75 mls/hr [id number] IV 07/21/25 00:00 07/21/25 13:17 DC 07/21/25 02:57 75 MLS/HR Lactated Ringer's 1,000 ml @ 75 mls/hr [id number] IV 07/21/25 13:30 07/24/25 11:09 DC 07/24/25 09:27 75 MLS/HR Lactobacillus Rhamnosus ([facility] [employer]) 1 each DAILY20 PO 07/26/25 20:00 08/25/25 19:59 Metronidazole/ Sodium Chloride (flaGYL) 500 mg Q8H IV 07/21/25 14:00 07/21/25 13:40 DC Norepinephrine 250 ml @ 0 mls/hr PROTOCOL IV 07/20/25 23:30 08/19/25 23:29 07/21/25 10:56 18.45 MLS/HR Pantoprazole Sodium (PROTonix 40MG INJ) 40 mg BID IV 07/26/25 21:00 08/20/25 08:59 Pantoprazole Sodium (PROTonix 40MG INJ) 40 mg DAILY IV 07/21/25 09:00 07/26/25 09:31 DC 07/26/25 08:55 40 MG Pharmacy Profile Note (Pharmacy Communication) 1 each ONCE MISC 07/21/25 15:30 07/21/25 15:16 DC Piperacillin Sod/ Tazobactam Sod 50 ml @ 200 mls/hr ONCE STAT IVPB 07/20/25 19:15 07/20/25 19:29 DC 07/20/25 20:32 200 MLS/HR Piperacillin Sod/ Tazobactam Sod (Zosyn 3.375gm+NS 50ml) 3.375 gm Q12H IV 07/21/25 00:00 07/31/25 00:00 07/26/25 12:10 3.375 GM Psyllium Hydrophilic Mucilloid (Metamucil) 1 tbs BID PO 07/26/25 21:00 08/25/25 20:59 Sodium Bicarbonate 150 meq/Sodium Chloride 1,150 ml @ 0 mls/hr Q0M IVP 07/21/25 14:00 07/26/25 09:31 DC Spironolactone (Aldactone 25mg) 25 mg BID PO 07/25/25 21:00 07/26/25 09:01 DC 07/26/25 08:56 25 MG Thiamine HCl (Vitamin B-1) 100 mg DAILY IVP 07/22/25 21:00 08/21/25 20:59 07/26/25 08:55 100 MG Thiamine HCl 100 mg/Sodium Chloride 50 ml @ 100 mls/hr Q24H IM 07/21/25 15:30 07/21/25 16:25 DC Vancomycin HCl (Vancomycin 1g/ 250ml Kit) 1 gm ONCE STAT IV 07/20/25 21:23 07/20/25 21:26 DC 07/20/25 22:06 1 GM Vasopressin 20 units/Sodium Chloride 100 ml @ 0 mls/hr PROTOCOL IV 07/21/25 00:30 08/20/25 00:29 07/21/25 00:10 9 MLS/HR LABORATORY: [ ] Hematology Labs: Test 07/26/25 03:00 07/25/25 15:03 Range/Units White Blood Count 7.3 4.8-10.8 K/uL Red Blood Count 3.05 L 4.00-5.50 MIL/uL Hemoglobin 9.2 L 12.0-16.0 g/dL Hematocrit 28.3 L 36-48 % Mean Corpuscular Volume 92.8 79-99 fL Mean Corpuscular Hemoglobin 30.2 27.0-33.0 pg Mean Corpuscular Hemoglobin Concent 32.5 32.0-36.0 g/dL Red Cell Distribution Width 17.7 H 11.0-15.5 % Platelet Count 100 L 130-400 K/uL Mean Platelet Volume 10.4 7.5-10.5 fL Immature Granulocyte % (Auto) 7.4 H 0-1 % Neutrophils (%) (Auto) 67.1 40.0-77.0 % Lymphocytes (%) (Auto) 11.7 L 21.0-51.0 % Monocytes (%) (Auto) 9.9 3.0-13.0 % Eosinophils (%) (Auto) 3.4 0.0-8.0 % Basophils (%) (Auto) 0.5 0.0-5.0 % Neutrophils # (Auto) 4.9 1.8-7.7 K/uL Lymphocytes # (Auto) 0.9 L 1.0-4.8 K/uL Monocytes # (Auto) 0.7 0.1-1.0 K/uL Eosinophils # (Auto) 0.25 0.00-0.70 K/uL Basophils # (Auto) 0.04 0.00-0.20 K/uL Absolute Immature Granulocyte (auto 0.54 0-1 K/uL Nucleated Red Blood Cells 0.3 H 0.0-0.19 % Reticulocyte Count (auto) 2.62313 H 0.42-2.23 % Immature Reticulocyte Fraction 47.10 H 0.18-0.48 % Chemistry Labs: Test 07/26/25 11:18 07/26/25 03:00 07/25/25 15:03 07/25/25 03:59 Range/Units Whole Blood Glucose 94 70-110 MG/DL Sodium Level 137 136-145 mmol/L Potassium Level 3.9 3.5-5.1 mmol/L Chloride Level 104 101-111 mmol/L Carbon Dioxide Level 28 21-32 mmol/L Blood Urea Nitrogen 11 7-18 mg/dL Creatinine 0.6 0.5-1.0 mg/dL Glomerular Filtration Rate Calc 105 >90 mL/min Random Glucose 108 H 70-105 mg/dL Total Calcium 7.8 L 8.5-10.1 mg/dL Total Bilirubin 0.9 # 0.2-1.0 mg/dL Aspartate Amino Transf (AST/SGOT) 31 10-37 U/L Alanine Aminotransferase (ALT/SGPT) 17 12-78 U/L Alkaline Phosphatase 68 50-136 U/L Total Protein 4.8 L 6.0-8.3 g/dL Albumin 2.2 #L 3.5-5.0 g/dL Free Thyroxine (T4) Direct 1.45 0.76-1.46 ng/dL Free Triiodothyronine (T3) pg/mL 1.68 L 2.18-3.98 pg/mL Iron Level 20 L 50-170 mcg/dL Total Iron Binding Capacity 167 L 250-450 mcg/dL Percent Iron Saturation 11.9 L 22-44 % Ferritin 129 15-150 ng/mL Vitamin B12 Level 5963 H 193-986 pg/mL Magnesium Level 1.80 1.80-2.40 mg/dL DIAGNOSTICS / RADIOLOGY: [place] [address] IMAGING REPORT Signed PATIENT: DALLAS BUCHANAN MR#: [id number] : 1970 SEX: F AGE: 55 LOCATION: 2BH ORDER STATUS: ADM IN REPORT#: [id number] SERVICE REASON: PICC LINE ORDERING PHYSICIAN: HEATHER LEACH APRN PROCEDURE: CXR1VW - CHEST 1VW EXAM: CR Chest, single view. CLINICAL HISTORY: PICC line COMPARISON: Prior same day chest radiograph. FINDINGS: Right-sided PICC catheter with tip in the cavoatrial junction. Subsegmental atelectasis in the right lower lobe. No evidence of pleural effusion or pneumothorax. The cardiomediastinal silhouette is within normal limits. No acute osseous abnormality. IMPRESSION: Right-sided PICC catheter with tip in the cavoatrial junction. Subsegmental atelectasis in the right lower lobe. No evidence of pleural effusion or pneumothorax. Compared to the prior study, there is interval placement of the right-sided PICC line and interval resolution of the subsegmental atelectasis in the left lower lobe. /[place] DICTATED BY: ELDON MILLER Jr., MD DATE: 07/21/25816 ELECTRONICALLY SIGNED BY: ELDON MILLER Jr., MD DATE: 07/21/25816 PATIENT: DALLAS BUCHANAN MR#: [id number] : 1970 SEX: F AGE: 55 LOCATION: [facility] ORDER 14 STATUS: REG ER [facility]OSP[facility] REPORT#: [id number] SERVICE 12 REASON: CHEST PAIN/COUGH ORDERING PHYSICIAN: ALHAJI SHINE NP PROCEDURE: CXR1VW - CHEST 1VW EXAM: XR Chest, 1 View. CLINICAL HISTORY: 55 year old female with chest pain and cough. COMPARISON: None provided. FINDINGS: LUNGS: The lungs demonstrate evidence of atelectasis. PLEURAL SPACES: A small right pleural effusion is present. HEART: The heart size is normal. BONES: No acute osseous abnormality. IMPRESSION: 1. Small right pleural effusion and right lung base atelectasis. /[place] DICTATED BY: EDWIGE LEDESMA MD DATE: 07/20/252046 ELECTRONICALLY SIGNED BY: EDWIGE LEDESMA MD DATE: 07/20/252046 PATIENT: DALLAS BUCHANAN MR#: [id number] : 1970 SEX: F AGE: 55 LOCATION: [facility] ORDER 14 STATUS: REG ER REPORT#: [id number] SERVICE 12 REASON: Abdominal Pain ORDERING PHYSICIAN: ALHAJI SHINE NP PROCEDURE: ABD PEL W - CT ABDOMEN/PELVIS W/CONTRAST ADDENDUM REPORT ADDENDUM: Results were shared by telephone at 23:23 pm on 07-20-2025 and acknowledged by Pt nurse Ms. SHIN BOYKIN. /[place] EXAM: CT Abdomen and Pelvis with Intravenous Contrast CLINICAL HISTORY: 55-year-old female with abdominal pain. TECHNIQUE: Axial computed tomography images of the abdomen and pelvis with intravenous contrast. Dose reduction technique was used including one or more of the following: automated exposure control, adjustment of mA and kV according to patient size, and/or iterative reconstruction. CONTRAST: Omnipaque 350, 75 mL COMPARISON: None provided. FINDINGS: LUNG BASES: Atelectasis and scarring at the lung bases. LIVER: Unremarkable. GALLBLADDER AND BILE DUCTS: Tiny gallstone seen. PANCREAS: Unremarkable. SPLEEN: Unremarkable. ADRENAL GLANDS: Unremarkable. KIDNEYS, URETERS, AND BLADDER: Dueñas catheter seen in the bladder lumen. No hydronephrosis or nephrolithiasis. No ureteral calculi. STOMACH AND BOWEL: Edema or loops of small bowel suggesting moderate small bowel enteritis. Free air in the upper abdomen is seen, suggesting perforated bowel. No obstruction. APPENDIX: No CT evidence for appendicitis. PERITONEUM: Moderate ascites in the abdomen and pelvis. No free air under the diaphragm. LYMPH NODES: No lymphadenopathy. REPRODUCTIVE: Unremarkable as visualized. VASCULATURE: No aortic aneurysm. ABDOMINAL WALL AND SOFT TISSUES: There is air in the subcutaneous soft tissue seen anteriorly, suggesting recent postsurgical changes; please correlate with surgical history. BONES: No fracture or suspicious osseous abnormality. IMPRESSION: 1. Moderate small bowel enteritis with free air in the upper abdomen, suggesting perforated bowel versus post surgical changes. No obstruction. 2. Moderate ascites in the abdomen and pelvis. 3. Air in the subcutaneous soft tissue anteriorly, suggesting recent postsurgical changes; please correlate with surgical history. /[place] DICTATED BY: EDWIGE LEDESMA MD DATE: 07/20/252336 ELECTRONICALLY SIGNED BY: DATE: EXAM: CT Abdomen and Pelvis with Intravenous Contrast CLINICAL HISTORY: 55-year-old female with abdominal pain. TECHNIQUE: Axial computed tomography images of the abdomen and pelvis with intravenous contrast. Dose reduction technique was used including one or more of the following: automated exposure control, adjustment of mA and kV according to patient size, and/or iterative reconstruction. CONTRAST: Omnipaque 350, 75 mL COMPARISON: None provided. FINDINGS: LUNG BASES: Atelectasis and scarring at the lung bases. LIVER: Unremarkable. GALLBLADDER AND BILE DUCTS: Tiny gallstone seen. PANCREAS: Unremarkable. SPLEEN: Unremarkable. ADRENAL GLANDS: Unremarkable. KIDNEYS, URETERS, AND BLADDER: Dueñas catheter seen in the bladder lumen. No hydronephrosis or nephrolithiasis. No ureteral calculi. STOMACH AND BOWEL: Edema or loops of small bowel suggesting moderate small bowel enteritis. Free air in the upper abdomen is seen, suggesting perforated bowel. No obstruction. APPENDIX: No CT evidence for appendicitis. PERITONEUM: Moderate ascites in the abdomen and pelvis. No free air under the diaphragm. LYMPH NODES: No lymphadenopathy. REPRODUCTIVE: Unremarkable as visualized. VASCULATURE: No aortic aneurysm. ABDOMINAL WALL AND SOFT TISSUES: There is air in the subcutaneous soft tissue seen anteriorly, suggesting recent postsurgical changes; please correlate with surgical history. BONES: No fracture or suspicious osseous abnormality. IMPRESSION: 1. Moderate small bowel enteritis with free air in the upper abdomen, suggesting perforated bowel versus post surgical changes. No obstruction. 2. Moderate ascites in the abdomen and pelvis. 3. Air in the subcutaneous soft tissue anteriorly, suggesting recent postsurgical changes; please correlate with surgical history. /[place] DICTATED BY: EDWIGE LEDESMA MD DATE: 07/20/252317 ELECTRONICALLY SIGNED BY: EDWIGE LEDESMA MD DATE: 07/20/252317 ASSESSMENT: Acute kidney injury Bilious peritonitis 2 mm perforation of the colonic anastomosis Diabetes Mellitus Type 2 Septic Shock Cirrhosis of liver Oesophageal Varices PLAN: Labs, diagnostic, radiologic exams reviewed and interpreted by myself and supervising physician. We have reviewed external records in detail There is no need for renal replacement therapy at this time. Require close monitoring of renal function and electrolytes Order CBC, CMP, and electrolytes in am Continue with antibiotics BiPAP as necessary, for respiratory distress Monitor blood pressure adjust medication doses as needed Avoid hypotensive episodes May use Dilaudid 0.5 mg IV every 6 hours as needed for severe pain Monitor blood sugars Strict intake, output, and daily weight should be monitored Please renally adjust medications Avoid nephrotoxic and nonsteroidal drugs Avoid contrast if possible Will continue to monitor renal function, anemia, electrolytes Treatment plan discussed with patient Questions were answered We have discussed with the other team physicians in detail about the care plan We will continue to monitor the patient closely ATTESTATION BY PHYSICIAN I have seen and examined the patient. I reviewed the documentation, medical decision making, and treatment plan as noted by the mid-level provider above. I agree with the findings and plan of care. CIELO PORTILLO MD, [facility] Jul 26, 2025 15:09
[2025-07-26] MEDS: LACTOBACILLUS RHAMNOSUS GG 1 EACH CAP.SPRINK PO SCH (21:32)
[2025-07-26] MEDS: PSYLLIUM SEED 1 EACH PACKET PO SCH (21:32)
--- NOTE | 2025-07-26 22:42 | PN ---
INFECTIOUS DISEASE PROGRESS NOTE Date of Service: Jul 26, 2025 SUBJECTIVE: This is a 55 year old female patient who was seen and examined at bedside in room 432. Patient is awake, alert and oriented x3. Patient is status post diagnostic laparoscopy, abdominal washout, ileostomy creation and CHRIS drain placement on 07/21/2025. The CHRIS drain continues to put out a lot of drainage, per nursing report however not draining it frequently due to albumin dropped.. Small amount of drainage observe in the right ileostomy. We will continue on fluconazole and Zosyn. No reports of nausea or vomiting. We will continue to follow patient's care. PHYSICAL EXAM EYES: Anicteric. Pupils equal and reactive. HENT: No oral thrush seen, moist Oral mucosa. NECK: Supple, no JVD or thyromegaly. LUNGS: Good air entry. No rales, no rhonchi. CARDIOVASCULAR: S1, S2 regular. No murmur heard. ABDOMEN: Soft, non tender, bowel sounds present, no organomegaly. CHRIS drain. Ileostomy creation. CENTRAL NERVOUS SYSTEM: Awake, alert, oriented x 3. SKIN: No rashes, no swelling. LYMPHATICS: No peripheral lymphadenopathy. MUSCULOSKELETAL: No joint swelling, erythema or tenderness. EXTREMITIES: No cyanosis or clubbing. BACK: No deformity, no pressure ulcer. GENITOURINARY: No dysuria or hematuria. Dueñas catheter. Vital Sign (Last 12 Hours) 07/26/25 07/26/25 07/26/25 07/26/25 12:00 15:58 16:00 20:00 Temp 98.8 99.5 98.4 Pulse 77 86 86 Resp 18 18 18 B/P (MAP) 111/57 100/69 101/48 Pulse Ox 94 97 94 96 O2 Delivery Room Air Room Air* Room Air Room Air O2 Flow Rate 0 FiO2 21 Intake & Output (last 24hrs) 07/25/25 07/25/25 07/26/25 15:00 23:00 07:00 Intake Total 50.0 ml 240 ml 100 ml Output Total 820 ml 1300 ml 1925 ml Balance -770.0 ml -1060 ml -1825 ml LABS: Laboratory: Test 07/26/25 20:26 07/26/25 03:00 07/25/25 15:03 07/25/25 12:12 Range/Units Whole Blood Glucose 171 H 70-110 MG/DL White Blood Count 7.3 4.8-10.8 K/uL Red Blood Count 3.05 L 4.00-5.50 MIL/uL Hemoglobin 9.2 L 12.0-16.0 g/dL Hematocrit 28.3 L 36-48 % Mean Corpuscular Volume 92.8 79-99 fL Mean Corpuscular Hemoglobin 30.2 27.0-33.0 pg Mean Corpuscular Hemoglobin Concent 32.5 32.0-36.0 g/dL Red Cell Distribution Width 17.7 H 11.0-15.5 % Platelet Count 100 L 130-400 K/uL Mean Platelet Volume 10.4 7.5-10.5 fL Immature Granulocyte % (Auto) 7.4 H 0-1 % Neutrophils (%) (Auto) 67.1 40.0-77.0 % Lymphocytes (%) (Auto) 11.7 L 21.0-51.0 % Monocytes (%) (Auto) 9.9 3.0-13.0 % Eosinophils (%) (Auto) 3.4 0.0-8.0 % Basophils (%) (Auto) 0.5 0.0-5.0 % Neutrophils # (Auto) 4.9 1.8-7.7 K/uL Lymphocytes # (Auto) 0.9 L 1.0-4.8 K/uL Monocytes # (Auto) 0.7 0.1-1.0 K/uL Eosinophils # (Auto) 0.25 0.00-0.70 K/uL Basophils # (Auto) 0.04 0.00-0.20 K/uL Absolute Immature Granulocyte (auto 0.54 0-1 K/uL Nucleated Red Blood Cells 0.3 H 0.0-0.19 % Sodium Level 137 136-145 mmol/L Potassium Level 3.9 3.5-5.1 mmol/L Chloride Level 104 101-111 mmol/L Carbon Dioxide Level 28 21-32 mmol/L Blood Urea Nitrogen 11 7-18 mg/dL Creatinine 0.6 0.5-1.0 mg/dL Glomerular Filtration Rate Calc 105 >90 mL/min Random Glucose 108 H 70-105 mg/dL Total Calcium 7.8 L 8.5-10.1 mg/dL Total Bilirubin 0.9 # 0.2-1.0 mg/dL Aspartate Amino Transf (AST/SGOT) 31 10-37 U/L Alanine Aminotransferase (ALT/SGPT) 17 12-78 U/L Alkaline Phosphatase 68 50-136 U/L Total Protein 4.8 L 6.0-8.3 g/dL Albumin 2.2 #L 3.5-5.0 g/dL Free Thyroxine (T4) Direct 1.45 0.76-1.46 ng/dL Free Triiodothyronine (T3) pg/mL 1.68 L 2.18-3.98 pg/mL Reticulocyte Count (auto) 2.32869 H 0.42-2.23 % Immature Reticulocyte Fraction 47.10 H 0.18-0.48 % Iron Level 20 L 50-170 mcg/dL Total Iron Binding Capacity 167 L 250-450 mcg/dL Percent Iron Saturation 11.9 L 22-44 % Ferritin 129 15-150 ng/mL Vitamin B12 Level 5963 H 193-986 pg/mL Body Fluid Source PERITONEAL Body Fluid Volume 100 mL Body Fluid Color LT YELLOW LT YELLOW Body Fluid pH 8 Body Fluid Supernatant Appearance SLIGHTLY CLOUDY H CLEAR Body Fluid WBC 1085 /cu. mm. Body Fluid RBC 702 /cu. mm. Body Fluid Neutrophils 94.0 % Body Fluid Lymphocytes 4 % Body Fluid Other Cells (%) 2 Test 07/25/25 03:59 Range/Units Magnesium Level 1.80 1.80-2.40 mg/dL ASSESSMENT: Hypoxic respiratory failure requiring oxygen support. Septic shock. Generalized peritonitis. Suspected bowel perforation, s/p diagnostic laparoscopy, abdominal washout, ileostomy creation and CHRIS drain placement on 07/21/2025. Leukocytosis. Acute renal failure. Diabetes mellitus. Recent colovesical fistula repair with sigmoid colon resection and anastomosis on 07/09/2025 PLAN: Continue Zosyn. Continue fluconazole. Continue pain management. Avoid nephrotoxic medications. Continue GI prophylaxis. Continue anti diabetics. This case was reviewed and discussed with my supervising physician Dr. Tripathi and the above assessment and plan was formulated and agreed upon. ATTESTATION BY PHYSICIAN I have seen and examined the patient. I reviewed the documentation, medical decision making, and treatment plan as noted by the mid-level provider above. I agree with the findings and plan of care. AMIE TRIPATHI MD, [facility] Jul 26, 2025 22:42
[2025-07-27] VITALS (7 sets, daily range): BP systolic 95–107; BP diastolic 52–65; PULSE 77–92; RESP 18–19; TEMP 97.9–98.6; O2SAT 97–99
[2025-07-27 05:23] LABS: IMMATURE GRANULOCYTE ABSOLUTE 0.89 K/uL (0-1); NUCLEATED RED BLOOD CELLS 0.0 % (0.0-0.19); PLATELET COUNT (AUTO) 123 K/uL (130-400); RED BLOOD CELL COUNT(AUTO) 3.40 MIL/uL (4.00-5.50); RED CELL DISTRIBUTION WIDTH 17.3 % (11.0-15.5); WHITE BLOOD COUNT (AUTO) 11.1 K/uL (4.8-10.8)
[2025-07-27 06:08] LABS: ASPARTATE AMINOTRANSFERASE 27.0 U/L (10-37); CREATININE 0.6 mg/dL (0.5-1.0); GLOMERULAR FILTR. RATE CALC 105.0 mL/min (>90); GLUCOSE,RANDOM 125.0 mg/dL (70-105); SODIUM SERUM 135.0 mmol/L (136-145); TOTAL PROTEIN, SERUM 5.0 g/dL (6.0-8.3); UREA NITROGEN, BLOOD 10.0 mg/dL (7-18)
--- NOTE | 2025-07-27 09:59 | PN ---
[facility] PROGRESS NOTE Date of Service: Jul 27, 2025 Time of Service: 09:39 SUBJECTIVE: Ms. Gray is a 55-year-old female that was seen and examined today on 07/20/2025. Patient reports that she came to the emergency department with a chief complaint of abdominal pain. Onset was 07/09/2025. Location is all four quadrants. Duration is constant. Character is described as pressure and " like I have a lot of gas trapped. " there was no alleviating factors. There was no aggravating factors. Patient reports associated abdominal swelling. 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 After the discharge she was taking pain medications and her condition started worsening after few days. She is in constant follow up with Dr Gann. Today in the emergency department WBCs 21.2, left shift neutrophils 85.5%, BUN 26, creatinine 3.1, GFR 17, lactic acid 8.0, no urinalysis has been collected or sent to lab, CT of abdomen and pelvis showed of free air in the abdomen which could be a suspected bowel perforation versus postsurgical changes, moderate ascites, fissure post surgical changes. Chest x-ray shows right pleural effusion. Additionally patient had a heart rate of 125, respirations 26, together with leukocytosis and lactic acidosis patient met clinical sepsis criteria additionally patient's blood pressure dropped to 85/50 mmHg requiring vasopressor support therefore meeting criteria for septic shock. Patient will be admitted to the intensive care unit. Emergency room physician spoke with patient's surgeon, Dr. Gann who requested patient be admitted under hospitalist service and she will follow this case along. 07/21/25 Patient was evaluated at the bedside. She was accompanied by her daughter. She is oriented to the time, place and person. She complained of abdominal pain in all the quadrants. She hasn't had bowel movement since Saturday and also is unable to pass flatus at this time. She has guarding, rigidity and tenderness all over the abdomen, showing the signs of peritonitis. She was seen by Dr Gann this mo rning and is planned to be taken to OR this afternoon. Dueñas catheter is in place, as she wasn't able to pass the urine. There is no fever, chills and any other signs of infection. 07/22/25 Patient was evaluated at the bedside. She was accompanied by her daughter. She is oriented to the time, place and person. She underwent Diagnostic laparoscopy, abdominal washout, drain placement and diverting loop ileostomy creation, The procedure revealed Bilious peritonitis, 2 mm perforation of the colonic anastomosis. She is hemodynamically stable with Blood pressure of 110/73 and HR of 83. Currently she complains of abdominal pain which is getting better than yesterday, its 3-4/10 intensity. There is no rigidity. She is anxious about the outcomes and had discussion regarding her current clinical status and lab parameters. There is no fever, chills and any other signs of infection. 07/23/25 Patient was evaluated at the bedside. She was accompanied by her daughter. She is oriented to the time, place and person. She status post diagnostic laparoscopy, abdominal washout, drain placement and diverting loop ileostomy creation. Currently she complains of abdominal pain which is 5/10 intensity. She also complaints of mild lower back pain There is no fever, chills and any other signs of infection. She has CHRIS drain in-situ with clear fluid along with colostomy bag. She is currently tolerating clear liquid diet. 07/24/2025 Patient is seen and examined at the bedside. Vitals blood pressure ranging in 100s/50s, pulse rate 50s, SpO2 greater than 95% on room air. She mentions about experiencing pressure-like discomfort on the right side of the abdomen and pain when she tries to eat. No acute events last night. She denies fever, chills, nausea, vomiting, chest pain. CHRIS output approximately 100cc/hr, serosanguineous fluid. Ileostomy bag in place. She is tolerating clear liquid diet without any nausea/vomiting. Labs hemoglobin 9.8, BUN 38, creatinine improved from 1.6-1.1. 07/25/2025 Patient is seen and examined at the bedside. She complains of abdominal pain which is 7/10 in intensity. No acute events last night. She denies fever, chills, nausea, vomiting, chest pain. CHRIS output approximately 100cc/hr, serosanguineous fluid. Ileostomy bag in place. The patient has been started on spironolactone 25mg BID and Lasix 20 mg once daily. There is high output from CHRIS but it is clear serous, most likely related to her ascites from her history of liver cirrhosis. She is tolerating clear liquid diet without any nausea/vomiting. 07/26/2025 Patient is seen and examined at the bedside. She complains of abdominal pain which remains constant. No acute events last night. She denies fever, chills, nausea, vomiting, chest pain. Patient is status post with a CHRIS drain. The drain has been collecting the serosanguineous fluid secondary to ascites. She has been tolerating liquid diet and her diet has been advanced to soft diet. She still nielsen s bloating for which probiotics and fibers has been recommended. Hemoglobin has gradually trended down to 9.2 and was given IV Venofer. Patient to get up and ambulate and work with physical therapy. 07/27/2025 Patient is seen and examined at the bedside. She complains of abdominal pain which is 6/10 in intensity. No acute events last night. She denies fever, chills, nausea, vomiting, chest pain. Patient is unable to tolerate the soft diet, hence she is currently receiving the liquid diets. The CHRIS drain output is still high and there was small amount of drainage observed in the right ileostomy. REVIEW OF SYSTEMS CONSTITUTIONAL: No fever, chills, or night sweats. NEUROLOGICAL: Denies headache, sensory and motor deficit. CARDIOVASCULAR: Denies any exertional angina, dyspnea on exertion, palpitations. PULMONARY: Denies any shortness of breath, cough, phlegm/sputum, hemoptysis, pleuritic chest pain. GASTROINTESTINAL: Patient complains of diffuse abdominal pain 7/10 intensity. She also has bloating. Denies nausea, vomiting. GENITOURINARY: Denies frequency, urgency, nocturia, hematuria or incontinence. PHYSICAL EXAM GENERAL APPEARANCE: The patient is alert, awake and oriented and bedbound. NEUROLOGICAL: No sensory and motor deficits. CHEST: Normal chest expansion. LUNGS: Normal Vesicular breath sound. Absence of any rales, rhonchi or any wheezing. CARDIOVASCULAR: Regular. S1 and S2 normal. No appreciable rubs, murmurs or gallops. ABDOMEN: Abdomen is soft and slightly tender. CHRIS drain is placed. Ileostomy creation. Absence of guarding, rigidity and rebound tenderness. GENITOURINARY: No suprapubic tenderness. No costovertebral angle tenderness. Vital Signs (last 8hr) Date Time Temp Pulse Resp B/P (MAP) Pulse Ox O2 Delivery O2 Flow Rate FiO2 07/27/25 08:00 97.9 77 18 101/62 97 Room Air 07/27/25 04:00 98.2 81 18 100/54 94 Room Air LABS: Laboratory: Test 07/27/25 05:10 07/27/25 05:06 07/26/25 03:00 07/25/25 15:03 Range/Units White Blood Count 11.1 H 4.8-10.8 K/uL Red Blood Count 3.40 L 4.00-5.50 MIL/uL Hemoglobin 10.2 L 12.0-16.0 g/dL Hematocrit 30.6 L 36-48 % Mean Corpuscular Volume 90.0 79-99 fL Mean Corpuscular Hemoglobin 30.0 27.0-33.0 pg Mean Corpuscular Hemoglobin Concent 33.3 32.0-36.0 g/dL Red Cell Distribution Width 17.3 H 11.0-15.5 % Platelet Count 123 L 130-400 K/uL Mean Platelet Volume 10.8 H 7.5-10.5 fL Immature Granulocyte % (Auto) 8.0 H 0-1 % Neutrophils (%) (Auto) 71.9 40.0-77.0 % Lymphocytes (%) (Auto) 8.6 L 21.0-51.0 % Monocytes (%) (Auto) 8.7 3.0-13.0 % Eosinophils (%) (Auto) 2.2 0.0-8.0 % Basophils (%) (Auto) 0.6 0.0-5.0 % Neutrophils # (Auto) 8.0 H 1.8-7.7 K/uL Lymphocytes # (Auto) 1.0 1.0-4.8 K/uL Monocytes # (Auto) 1.0 0.1-1.0 K/uL Eosinophils # (Auto) 0.24 0.00-0.70 K/uL Basophils # (Auto) 0.07 0.00-0.20 K/uL Absolute Immature Granulocyte (auto 0.89 0-1 K/uL Nucleated Red Blood Cells 0.0 0.0-0.19 % Sodium Level 135 L 136-145 mmol/L Potassium Level 3.6 3.5-5.1 mmol/L Chloride Level 104 101-111 mmol/L Carbon Dioxide Level 25 21-32 mmol/L Blood Urea Nitrogen 10 7-18 mg/dL Creatinine 0.6 0.5-1.0 mg/dL Glomerular Filtration Rate Calc 105 >90 mL/min Random Glucose 125 H 70-105 mg/dL Total Calcium 7.8 L 8.5-10.1 mg/dL Magnesium Level 1.70 L 1.80-2.40 mg/dL Total Bilirubin 0.8 0.2-1.0 mg/dL Aspartate Amino Transf (AST/SGOT) 27 10-37 U/L Alanine Aminotransferase (ALT/SGPT) 11 L 12-78 U/L Alkaline Phosphatase 73 50-136 U/L Total Protein 5.0 L 6.0-8.3 g/dL Albumin 2.1 L 3.5-5.0 g/dL Whole Blood Glucose 132 H 70-110 MG/DL Free Thyroxine (T4) Direct 1.45 0.76-1.46 ng/dL Free Triiodothyronine (T3) pg/mL 1.68 L 2.18-3.98 pg/mL Reticulocyte Count (auto) 2.22137 H 0.42-2.23 % Immature Reticulocyte Fraction 47.10 H 0.18-0.48 % Iron Level 20 L 50-170 mcg/dL Total Iron Binding Capacity 167 L 250-450 mcg/dL Percent Iron Saturation 11.9 L 22-44 % Ferritin 129 15-150 ng/mL Vitamin B12 Level 5963 H 193-986 pg/mL Test 07/25/25 12:12 Range/Units Body Fluid Source PERITONEAL Body Fluid Volume 100 mL Body Fluid Color LT YELLOW LT YELLOW Body Fluid pH 8 Body Fluid Supernatant Appearance SLIGHTLY CLOUDY H CLEAR Body Fluid WBC 1085 /cu. mm. Body Fluid RBC 702 /cu. mm. Body Fluid Neutrophils 94.0 % Body Fluid Lymphocytes 4 % Body Fluid Other Cells (%) 2 Current Medications Medications (Trade) Dose Ordered Sig/Gregory Route PRN Reason Start Time Stop Time Status Last Admin Dose Admin Acetaminophen (TYLenol 650MG SUPPOSITORY) 650 mg Q6H PRN RC MILD PAIN (1-3) 07/21/25 00:00 08/20/25 00:00 Albumin Human 100 ml @ 0 mls/hr ONCE IV 07/25/25 12:00 07/26/25 11:59 DC 07/25/25 13:43 100 MLS/HR Cyclobenzaprine HCl (Cyclobenzaprine HCl) 5 mg TID PO 07/25/25 14:00 07/26/25 14:00 DC 07/26/25 14:19 5 MG Fluconazole/ Sodium Chloride (DiFLUCan 200 MG/ NS 100 ML) 200 mg Q24H IVPB 07/21/25 21:00 08/20/25 20:59 07/26/25 21:32 200 MG Furosemide (LASix 20MG TAB) 20 mg DAILY PO 07/25/25 11:00 08/24/25 10:59 07/27/25 09:22 20 MG Hydromorphone HCl (DiLAUDid 0.5MG INJ) 0.5 mg Q4H PRN IVP SEVERE PAIN (7-10) 07/24/25 10:00 07/29/25 09:59 07/27/25 09:30 0.5 MG Insulin Human Regular (humuLIN R 100 UNIT/ML 3ML) INSULIN SLIDING SCAL... ACHS SQ 07/21/25 07:30 08/20/25 07:29 07/22/25 20:40 3 UNIT Lactated Ringer's 1,000 ml @ 75 mls/hr [id number] IV 07/21/25 00:00 07/21/25 13:17 DC 07/21/25 02:57 75 MLS/HR Lactated Ringer's 1,000 ml @ 75 mls/hr [id number] IV 07/21/25 13:30 07/24/25 11:09 DC 07/24/25 09:27 75 MLS/HR Lactobacillus Rhamnosus ([facility]) 1 each DAILY20 PO 07/26/25 20:00 08/25/25 19:59 07/26/25 21:32 1 EACH Magnesium Sulfate 50 ml @ 0 mls/hr PROTOCOL PRN IV MAGNESIUM PROTOCOL 07/21/25 07:00 08/20/25 06:59 07/25/25 09:36 25 MLS/HR Metronidazole/ Sodium Chloride (flaGYL) 500 mg Q8H IV 07/21/25 14:00 07/21/25 13:40 DC Morphine Sulfate (morPHINE 2MG SYG) 2 mg Q4H PRN IVP SEVERE PAIN (7-10) 07/21/25 00:30 07/21/25 13:18 DC 07/21/25 04:46 2 MG Morphine Sulfate (morPHINE 4MG SYG) 4 mg Q3H PRN IV MODERATE PAIN (4-6) 07/21/25 13:30 07/26/25 16:29 DC 07/26/25 10:51 4 MG Norepinephrine 250 ml @ 0 mls/hr PROTOCOL IV 07/20/25 23:30 08/19/25 23:29 07/21/25 10:56 18.45 MLS/HR Ondansetron HCl (zoFRAN 4MG INJ) 4 mg Q4H PRN IVP NAUSEA 07/21/25 13:30 08/20/25 13:29 Ondansetron HCl (zoFRAN 4MG INJ) 4 mg Q6H PRN IV NAUSEA/VOMITING 07/21/25 00:00 07/21/25 13:18 DC Pantoprazole Sodium (PROTonix 40MG INJ) 40 mg BID IV 07/26/25 21:00 08/20/25 08:59 07/27/25 09:22 40 MG Pantoprazole Sodium (PROTonix 40MG INJ) 40 mg DAILY IV 07/21/25 09:00 07/26/25 09:31 DC 07/26/25 08:55 40 MG Pharmacy Profile Note (Pharmacy Communication) 1 each ONCE MISC 07/21/25 15:30 07/21/25 15:16 DC Piperacillin Sod/ Tazobactam Sod 50 ml @ 200 mls/hr ONCE STAT IVPB 07/20/25 19:15 07/20/25 19:29 DC 07/20/25 20:32 200 MLS/HR Piperacillin Sod/ Tazobactam Sod (Zosyn 3.375gm+NS 50ml) 3.375 gm Q12H IV 07/21/25 00:00 07/31/25 00:00 07/27/25 00:34 3.375 GM Potassium Chloride 100 ml @ 100 mls/hr AD PRN IV POTASSIUM PROTOCOL 07/24/25 08:30 08/23/25 08:29 Potassium Chloride (K-Dur/Klor-Con 20meq) 20 meq AD PRN PO POTASSIUM PROTOCOL 07/24/25 08:30 08/23/25 08:29 07/24/25 12:50 20 MEQ Potassium Chloride (KCl 10% Elixir 20meq/15ml) 20 meq AD PRN PO POTASSIUM PROTOCOL 07/24/25 08:30 08/23/25 08:29 Psyllium Hydrophilic Mucilloid (Metamucil) 1 tbs BID PO 07/26/25 21:00 08/25/25 20:59 07/27/25 09:23 1 TBS Sodium Bicarbonate 150 meq/Sodium Chloride 1,150 ml @ 0 mls/hr Q0M IVP 07/21/25 14:00 07/26/25 09:31 DC Spironolactone (Aldactone 25mg) 25 mg BID PO 07/25/25 21:00 07/26/25 09:01 DC 07/26/25 08:56 25 MG Thiamine HCl (Vitamin B-1) 100 mg DAILY IVP 07/22/25 21:00 08/21/25 20:59 07/27/25 09:23 100 MG Thiamine HCl 100 mg/Sodium Chloride 50 ml @ 100 mls/hr Q24H IM 07/21/25 15:30 07/21/25 16:25 DC Vancomycin HCl (Vancomycin 1g/ 250ml Kit) 1 gm ONCE STAT IV 07/20/25 21:23 07/20/25 21:26 DC 07/20/25 22:06 1 GM Vasopressin 20 units/Sodium Chloride 100 ml @ 0 mls/hr PROTOCOL IV 07/21/25 00:30 08/20/25 00:29 07/21/25 00:10 9 MLS/HR DIAGNOSTICS / RADIOLOGY: [ ] ASSESSMENT: Suspected Bowel Perforation POA Bilious peritonitis s/p Diagnostic laparoscopy, abdominal washout, drain placement and diverting loop ileostomy creation Diabetes Mellitus Type 2 POA Acute Kidney Injury POA Septic Shock POA Cirrhosis of liver POA Esophageal Varices Recent Robotic takedown of splenic flexure mobilization, robotic takedown of colovesical fistula with sigmoid colectomy and end-to-end anastomosis surgery PLAN: Bilious peritonitis status post Diagnostic laparoscopy, abdominal washout, drain placement and diverting loop ileostomy creation She is able to tolerate the clear liquid diet -Continue close monitoring of the patient -continue physical therapy -Monitor CHRIS drain output -Continues with high output from CHRIS but it is clear serous, most likely related to her ascites from her history of liver cirrhosis -Continue Lactated Ringer's at 75 ml/hr for volume resuscitation and electrolyte replacement -continue Zosyn [day 4 ] and fluconazole [day 4] -Patient has ongoing abdominal pain, currently awaiting for the clinical symptoms to improve for the discharge in 24-48 hrs. 07/25/25 -Flexeril 5 mg t.i.d. has been started by the Surgery team. -Hemoglobin has gradually trended down to 9.2 and planning to start her on IV V enofer. 07/26/25 -Advance diet to Soft diet -Probiotics and Fibers have been added for bloating. -As per the Surgery: Waiting for the symptoms to resolve and see if she can tolerate the advanced diet for proper discharge timeline. -Protonix IV increased to twice daily. * Patient could not tolerate soft diet, currently receiving liquid diet only. 07/27/25 * Her WBC has trended up (11.3), we will closely monitor the patient * General Surgery team is following up the patient closely. Bowel Perforation, Dehiscence of the anastomosis - Patient had repair of colo vesicular fistula with sigmoid colon resection and anastomosis on 07/09/25. - CT abdominal pelvis w/contrast done on 07/20/2025 showed Free air in the upper abdomen is seen, suggesting perforated bowel vs post surgical changes. No obstruction. -underwent Diagnostic laparoscopy, abdominal washout, drain placement and diverting loop ileostomy creation for biliary peritonitis Septic Shock -resolved -WBC has trended up from 7.3 to 11.1. 07/27/25 -Her WBC during the presentation was 21.2 and today its 7.3. 07/26/25 -lactic acid normal at 1.6 yesterday -blood and urine culture results are negative Acute Kidney Injury Resolved -Creatinine improved from 1.6-1.1-0.7-0.6-0.6. 07/27/25 -Initial FeNA is 0.1 %, probably secondary to dehydration and NSAIDs overuse. -initial Urine sodium is < 13 and urine creatinine is 132.17. -Avoid nephrotoxic agents, eg. NSAIDS. -Weight patient daily. -Monitor intake and output. Cirrhosis of liver -Patient has a past history of cirrhosis of liver. -Ammonia level was 33 which reduced from 40. 07/23/25. - Liver functions are within normal limits. AST 23, ALT 12 and ALP 108. - Avoid NSAIDs and high dose acetaminophen. -Maintain appropriate volume of the patient. * Patient has been started on Spironolactone 25 mg b.i.d. and Lasix 20 mg once daily. 07/25/25 Supportive measures -Maintain IV fluids, correct electrolytes -Serial abdominal exams -Stratigraphy Teacher on avoidance of NSAIDS and other related triggers. -Monitor Vitals and perform morning labs regularly Continue GI prophylaxis with Pantop Continue DVT prophylaxis with SCDs, we will avoid heparin due to history of allergies to porcine, we will coordinate with surgery consult on initiation of other anticoagulants ATTESTATION BY PHYSICIAN I have seen and examined the patient. I reviewed the documentation, medical decision making, and treatment plan as noted by the resident provider above. I agree with the findings and plan of care. Hiren Castillo MD, SUZIT MD Jul 27, 2025 09:59
[2025-07-27] MEDS: SIMETHICONE 80 MG TAB.CHEW PO SCH (11:35)
--- NOTE | 2025-07-27 13:57 | PN ---
NEPHROLOGY PROGRESS NOTE Date/Time Patient Seen: Jul 27, 2025 SUBJECTIVE: This is a 55-year-old female with a past medical history of diabetes mellitus type 2, liver cirrhosis, esophageal varices. He presented to the emergency room with chief complain of abdominal pain. CT of the abdomen showed moderate small bowel enteritis with free air in the upper abdomen, suggesting perforated bowel versus post surgical changes. No obs truction. S/p diagnostic laparoscopy, abdominal washout, drain placement and diverting loop ileostomy creation with CHRIS drain 10 [place] on 07/21 Vasopressors have been discontinued She was noted to have elevated BUN/creatinine We are consulted for renal failure Renal function and lectrolytes are stable. Tolerating clear liquid diet She was seen in the medial floor, in no acute distress No family at the bedside REVIEW OF SYSTEMS: GENERAL: Positive for abdominal pain and nausea NEUROLOGIC: Negative for any blurry vision, blind spots, double vision, facial asymmetry, dysphagia, dysarthria, hemiparesis, hemisensory deficits, vertigo, ataxia. HEENT: Negative for any head trauma, neck trauma, neck stiffness, photophobia, phonophobia, sinusitis, rhinitis. CARDIAC: Negative for any chest pain, dyspnea on exertion, paroxysmal nocturnal dyspnea, peripheral edema. PULMONARY: Negative for any shortness of breath, wheezing, COPD, or TB exposure. GASTROINTESTINAL: Negative for any abdominal pain, nausea, vomiting, bright red blood per rectum, melena. GENITOURINARY: Negative for any dysuria, hematuria, incontinence. INTEGUMENTARY: Negative for any rashes, cuts, insect bites. RHEUMATOLOGIC: Negative for any joint pains, photosensitive rashes, history of vasculitis or kidney problems. HEMATOLOGIC: Negative for any abnormal bruising, frequent infections or bleeding. Vital Signs (last 8hr) Date Time Temp Pulse Resp B/P (MAP) Pulse Ox O2 Delivery O2 Flow Rate FiO2 07/27/25 08:00 97.9 77 18 101/62 97 Room Air PHYSICAL EXAM: GENERAL: Alert and oriented x 3. No acute distress. Well-nourished. EYES: EOMI. Anicteric. HENT: Moist mucous membranes. No scleral icterus. No cervical lymphadenopathy. LUNGS: Clear to auscultation bilaterally. No accessory muscle use. CARDIOVASCULAR: Regular rate and rhythm. No murmur. No JVD. ABDOMEN: Soft, non-tender and non-distended. No palpable masses. EXTREMITIES: No edema. Non-tender SKIN: No rashes or lesions. Warm. NEUROLOGIC: No focal neurological deficits. CN II-XII grossly intact, but not individually tested. PSYCHIATRIC: Cooperative. Appropriate mood and affect. Current Medications Medications (Trade) Dose Ordered Sig/Gregory Route Start Time Stop Time Status Last Admin Dose Admin Albumin Human 100 ml @ 0 mls/hr ONCE IV 07/25/25 12:00 07/26/25 11:59 DC 07/25/25 13:43 100 MLS/HR Cyclobenzaprine HCl (Cyclobenzaprine HCl) 5 mg TID PO 07/25/25 14:00 07/26/25 14:00 DC 07/26/25 14:19 5 MG Fluconazole/ Sodium Chloride (DiFLUCan 200 MG/ NS 100 ML) 200 mg Q24H IVPB 07/21/25 21:00 08/20/25 20:59 07/25/25 20:47 200 MG Furosemide (LASix 20MG TAB) 20 mg DAILY PO 07/25/25 11:00 08/24/25 10:59 07/26/25 08:56 20 MG Insulin Human Regular (humuLIN R 100 UNIT/ML 3ML) INSULIN SLIDING SCAL... ACHS SQ 07/21/25 07:30 08/20/25 07:29 07/22/25 20:40 3 UNIT Lactated Ringer's 1,000 ml @ 75 mls/hr [id number] IV 07/21/25 00:00 07/21/25 13:17 DC 07/21/25 02:57 75 MLS/HR Lactated Ringer's 1,000 ml @ 75 mls/hr [id number] IV 07/21/25 13:30 07/24/25 11:09 DC 07/24/25 09:27 75 MLS/HR Lactobacillus Rhamnosus ([facility] [employer]) 1 each DAILY20 PO 07/26/25 20:00 08/25/25 19:59 Metronidazole/ Sodium Chloride (flaGYL) 500 mg Q8H IV 07/21/25 14:00 07/21/25 13:40 DC Norepinephrine 250 ml @ 0 mls/hr PROTOCOL IV 07/20/25 23:30 08/19/25 23:29 07/21/25 10:56 18.45 MLS/HR Pantoprazole Sodium (PROTonix 40MG INJ) 40 mg BID IV 07/26/25 21:00 08/20/25 08:59 Pantoprazole Sodium (PROTonix 40MG INJ) 40 mg DAILY IV 07/21/25 09:00 07/26/25 09:31 DC 07/26/25 08:55 40 MG Pharmacy Profile Note (Pharmacy Communication) 1 each ONCE MISC 07/21/25 15:30 07/21/25 15:16 DC Piperacillin Sod/ Tazobactam Sod 50 ml @ 200 mls/hr ONCE STAT IVPB 07/20/25 19:15 07/20/25 19:29 DC 07/20/25 20:32 200 MLS/HR Piperacillin Sod/ Tazobactam Sod (Zosyn 3.375gm+NS 50ml) 3.375 gm Q12H IV 07/21/25 00:00 07/31/25 00:00 07/26/25 12:10 3.375 GM Psyllium Hydrophilic Mucilloid (Metamucil) 1 tbs BID PO 07/26/25 21:00 08/25/25 20:59 Sodium Bicarbonate 150 meq/Sodium Chloride 1,150 ml @ 0 mls/hr Q0M IVP 07/21/25 14:00 07/26/25 09:31 DC Spironolactone (Aldactone 25mg) 25 mg BID PO 07/25/25 21:00 07/26/25 09:01 DC 07/26/25 08:56 25 MG Thiamine HCl (Vitamin B-1) 100 mg DAILY IVP 07/22/25 21:00 08/21/25 20:59 07/26/25 08:55 100 MG Thiamine HCl 100 mg/Sodium Chloride 50 ml @ 100 mls/hr Q24H IM 07/21/25 15:30 07/21/25 16:25 DC Vancomycin HCl (Vancomycin 1g/ 250ml Kit) 1 gm ONCE STAT IV 07/20/25 21:23 07/20/25 21:26 DC 07/20/25 22:06 1 GM Vasopressin 20 units/Sodium Chloride 100 ml @ 0 mls/hr PROTOCOL IV 07/21/25 00:30 08/20/25 00:29 07/21/25 00:10 9 MLS/HR LABORATORY: [ ] Hematology Labs: Test 07/27/25 05:10 07/25/25 15:03 Range/Units White Blood Count 11.1 H 4.8-10.8 K/uL Red Blood Count 3.40 L 4.00-5.50 MIL/uL Hemoglobin 10.2 L 12.0-16.0 g/dL Hematocrit 30.6 L 36-48 % Mean Corpuscular Volume 90.0 79-99 fL Mean Corpuscular Hemoglobin 30.0 27.0-33.0 pg Mean Corpuscular Hemoglobin Concent 33.3 32.0-36.0 g/dL Red Cell Distribution Width 17.3 H 11.0-15.5 % Platelet Count 123 L 130-400 K/uL Mean Platelet Volume 10.8 H 7.5-10.5 fL Immature Granulocyte % (Auto) 8.0 H 0-1 % Neutrophils (%) (Auto) 71.9 40.0-77.0 % Lymphocytes (%) (Auto) 8.6 L 21.0-51.0 % Monocytes (%) (Auto) 8.7 3.0-13.0 % Eosinophils (%) (Auto) 2.2 0.0-8.0 % Basophils (%) (Auto) 0.6 0.0-5.0 % Neutrophils # (Auto) 8.0 H 1.8-7.7 K/uL Lymphocytes # (Auto) 1.0 1.0-4.8 K/uL Monocytes # (Auto) 1.0 0.1-1.0 K/uL Eosinophils # (Auto) 0.24 0.00-0.70 K/uL Basophils # (Auto) 0.07 0.00-0.20 K/uL Absolute Immature Granulocyte (auto 0.89 0-1 K/uL Nucleated Red Blood Cells 0.0 0.0-0.19 % Reticulocyte Count (auto) 2.35170 H 0.42-2.23 % Immature Reticulocyte Fraction 47.10 H 0.18-0.48 % Chemistry Labs: Test 07/27/25 12:06 07/27/25 05:10 07/26/25 03:00 07/25/25 15:03 Range/Units Whole Blood Glucose 98 70-110 MG/DL Sodium Level 135 L 136-145 mmol/L Potassium Level 3.6 3.5-5.1 mmol/L Chloride Level 104 101-111 mmol/L Carbon Dioxide Level 25 21-32 mmol/L Blood Urea Nitrogen 10 7-18 mg/dL Creatinine 0.6 0.5-1.0 mg/dL Glomerular Filtration Rate Calc 105 >90 mL/min Random Glucose 125 H 70-105 mg/dL Total Calcium 7.8 L 8.5-10.1 mg/dL Magnesium Level 1.70 L 1.80-2.40 mg/dL Total Bilirubin 0.8 0.2-1.0 mg/dL Aspartate Amino Transf (AST/SGOT) 27 10-37 U/L Alanine Aminotransferase (ALT/SGPT) 11 L 12-78 U/L Alkaline Phosphatase 73 50-136 U/L Total Protein 5.0 L 6.0-8.3 g/dL Albumin 2.1 L 3.5-5.0 g/dL Free Thyroxine (T4) Direct 1.45 0.76-1.46 ng/dL Free Triiodothyronine (T3) pg/mL 1.68 L 2.18-3.98 pg/mL Iron Level 20 L 50-170 mcg/dL Total Iron Binding Capacity 167 L 250-450 mcg/dL Percent Iron Saturation 11.9 L 22-44 % Ferritin 129 15-150 ng/mL Vitamin B12 Level 5963 H 193-986 pg/mL DIAGNOSTICS / RADIOLOGY: [place] [address] IMAGING REPORT Signed PATIENT: AYDEN KAHN MR#: [id number] : 01/24/1947 SEX: M AGE: 78 LOCATION: [facility] ORDER 1025 STATUS: ADM IN REPORT#: [id number] SERVICE 1024 REASON: Evaluate infectious process both lung apices. ORDERING PHYSICIAN: GEN KAISER MD PROCEDURE: CHEST WO - CT CHEST W/O CONTRAST EXAM: CT Chest Without IV contrast. CLINICAL HISTORY: Evaluate infectious process both lung apices. TECHNIQUE: Axial computed tomography images of the chest without intravenous contrast. COMPARISON: 07/24/2025. FINDINGS: LUNGS: There is diffuse reticulation of the lung. Underlying interstitial lung disease not excluded. There are scattered bilateral airspace opacities which have worsened compared to prior. PLEURAL SPACES: No pneumothorax evident. No pleural effusions. HEART: Cardiomegaly. Coronary artery calcifications. LYMPH NODES: No lymphadenopathy is evident. UPPER ABDOMEN: Cholelithiasis. BONES: Severe degenerative changes of the spine. MISCELLANEOUS: Status post median sternotomy. IMPRESSION: 1. Worsening bilateral airspace opacities, concerning for infectious process. 2. Diffuse pulmonary reticulation, possibly representing interstitial lung disease. 3. Cardiomegaly. 4. Cholelithiasis. 5. Severe degenerative changes of the spine. 6. Status post median sternotomy. /[place] DICTATED BY: CYNTHIA JULIAN MD DATE: 07/27/251103 ELECTRONICALLY SIGNED BY: CYNTHIA JULIAN MD DATE: 07/27/251103 PATIENT: DALLAS BUCHANAN MR#: [id number] : 1970 SEX: F AGE: 55 LOCATION: [facility] ORDER STATUS: ADM IN REPORT#: [id number] SERVICE REASON: PICC LINE ORDERING PHYSICIAN: HEATHER LEACH APRN PROCEDURE: CXR1VW - CHEST 1VW EXAM: CR Chest, single view. CLINICAL HISTORY: PICC line COMPARISON: Prior same day chest radiograph. FINDINGS: Right-sided PICC catheter with tip in the cavoatrial junction. Subsegmental atelectasis in the right lower lobe. No evidence of pleural effusion or pneumothorax. The cardiomediastinal silhouette is within normal limits. No acute osseous abnormality. IMPRESSION: Right-sided PICC catheter with tip in the cavoatrial junction. Subsegmental atelectasis in the right lower lobe. No evidence of pleural effusion or pneumothorax. Compared to the prior study, there is interval placement of the right-sided PICC line and interval resolution of the subsegmental atelectasis in the left lower lobe. /[place] DICTATED BY: ELDON MILLER Jr., MD DATE: 07/21/25816 ELECTRONICALLY SIGNED BY: ELDON MILLER Jr., MD DATE: 07/21/25816 PATIENT: DALLAS BUCHANAN MR#: [id number] : 1970 SEX: F AGE: 55 LOCATION: [facility] ORDER 14 STATUS: [facility] REPORT#: [id number] SERVICE 12 REASON: CHEST PAIN/COUGH ORDERING PHYSICIAN: ALHAJI SHINE NP PROCEDURE: CXR1VW - CHEST 1VW EXAM: XR Chest, 1 View. CLINICAL HISTORY: 55 year old female with chest pain and cough. COMPARISON: None provided. FINDINGS: LUNGS: The lungs demonstrate evidence of atelectasis. PLEURAL SPACES: A small right pleural effusion is present. HEART: The heart size is normal. BONES: No acute osseous abnormality. IMPRESSION: 1. Small right pleural effusion and right lung base atelectasis. /[place] DICTATED BY: EDWIGE LEDESMA MD DATE: 07/20/252046 ELECTRONICALLY SIGNED BY: EDWIGE LEDESMA MD DATE: 07/20/252046 PATIENT: DALLAS BUCHANAN MR#: [id number] : 1970 SEX: F AGE: 55 LOCATION: [facility] ORDER 14 STATUS: REG ER REPORT#: [id number] SERVICE 12 REASON: Abdominal Pain ORDERING PHYSICIAN: ALHAJI SHINE NP PROCEDURE: ABD PEL W - CT ABDOMEN/PELVIS W/CONTRAST ADDENDUM REPORT ADDENDUM: Results were shared by telephone at 23:23 pm on 07-20-2025 and acknowledged by Pt nurse Ms. SHIN BOYKIN. /[place] EXAM: CT Abdomen and Pelvis with Intravenous Contrast CLINICAL HISTORY: 55-year-old female with abdominal pain. TECHNIQUE: Axial computed tomography images of the abdomen and pelvis with intravenous contrast. Dose reduction technique was used including one or more of the following: automated exposure control, adjustment of mA and kV according to patient size, and/or iterative reconstruction. CONTRAST: Omnipaque 350, 75 mL COMPARISON: None provided. FINDINGS: LUNG BASES: Atelectasis and scarring at the lung bases. LIVER: Unremarkable. GALLBLADDER AND BILE DUCTS: Tiny gallstone seen. PANCREAS: Unremarkable. SPLEEN: Unremarkable. ADRENAL GLANDS: Unremarkable. KIDNEYS, URETERS, AND BLADDER: Dueñas catheter seen in the bladder lumen. No hydronephrosis or nephrolithiasis. No ureteral calculi. STOMACH AND BOWEL: Edema or loops of small bowel suggesting moderate small bowel enteritis. Free air in the upper abdomen is seen, suggesting perforated bowel. No obstruction. APPENDIX: No CT evidence for appendicitis. PERITONEUM: Moderate ascites in the abdomen and pelvis. No free air under the diaphragm. LYMPH NODES: No lymphadenopathy. REPRODUCTIVE: Unremarkable as visualized. VASCULATURE: No aortic aneurysm. ABDOMINAL WALL AND SOFT TISSUES: There is air in the subcutaneous soft tissue seen anteriorly, suggesting recent postsurgical changes; please correlate with surgical history. BONES: No fracture or suspicious osseous abnormality. IMPRESSION: 1. Moderate small bowel enteritis with free air in the upper abdomen, suggesting perforated bowel versus post surgical changes. No obstruction. 2. Moderate ascites in the abdomen and pelvis. 3. Air in the subcutaneous soft tissue anteriorly, suggesting recent postsurgical changes; please correlate with surgical history. /[place] DICTATED BY: EDWIGE LEDESMA MD DATE: 07/20/25 9362 ELECTRONICALLY SIGNED BY: DATE: EXAM: CT Abdomen and Pelvis with Intravenous Contrast CLINICAL HISTORY: 55-year-old female with abdominal pain. TECHNIQUE: Axial computed tomography images of the abdomen and pelvis with intravenous contrast. Dose reduction technique was used including one or more of the following: automated exposure control, adjustment of mA and kV according to patient size, and/or iterative reconstruction. CONTRAST: Omnipaque 350, 75 mL COMPARISON: None provided. FINDINGS: LUNG BASES: Atelectasis and scarring at the lung bases. LIVER: Unremarkable. GALLBLADDER AND BILE DUCTS: Tiny gallstone seen. PANCREAS: Unremarkable. SPLEEN: Unremarkable. ADRENAL GLANDS: Unremarkable. KIDNEYS, URETERS, AND BLADDER: Dueñas catheter seen in the bladder lumen. No hydronephrosis or nephrolithiasis. No ureteral calculi. STOMACH AND BOWEL: Edema or loops of small bowel suggesting moderate small bowel enteritis. Free air in the upper abdomen is seen, suggesting perforated bowel. No obstruction. APPENDIX: No CT evidence for appendicitis. PERITONEUM: Moderate ascites in the abdomen and pelvis. No free air under the diaphragm. LYMPH NODES: No lymphadenopathy. REPRODUCTIVE: Unremarkable as visualized. VASCULATURE: No aortic aneurysm. ABDOMINAL WALL AND SOFT TISSUES: There is air in the subcutaneous soft tissue seen anteriorly, suggesting recent postsurgical changes; please correlate with surgical history. BONES: No fracture or suspicious osseous abnormality. IMPRESSION: 1. Moderate small bowel enteritis with free air in the upper abdomen, suggesting perforated bowel versus post surgical changes. No obstruction. 2. Moderate ascites in the abdomen and pelvis. 3. Air in the subcutaneous soft tissue anteriorly, suggesting recent postsurgical changes; please correlate with surgical history. /[place] DICTATED BY: EDWIGE LEDESMA MD DATE: 07/20/252317 ELECTRONICALLY SIGNED BY: EDWIGE LEDESMA MD DATE: 07/20/252317 ASSESSMENT: Acute kidney injury Bilious peritonitis 2 mm perforation of the colonic anastomosis Diabetes Mellitus Type 2 Septic Shock Cirrhosis of liver Oesophageal Varices PLAN: Labs, diagnostic, radiologic exams reviewed and interpreted by myself and supervising physician. We have reviewed external records in detail Require close monitoring of renal function and electrolytes Order CBC, CMP, and electrolytes in am Continue with antibiotics BiPAP as necessary, for respiratory distress Monitor blood pressure adjust medication doses as needed Avoid hypotensive episodes May use Dilaudid 0.5 mg IV every 6 hours as needed for severe pain Monitor blood sugars Strict intake, output, and daily weight should be monitored Please renally adjust medications Avoid nephrotoxic and nonsteroidal drugs Avoid contrast if possible Will continue to monitor renal function, anemia, electrolytes Treatment plan discussed with patient Questions were answered We have discussed with the other team physicians in detail about the care plan We will continue to monitor the patient closely ATTESTATION BY PHYSICIAN I have seen and examined the patient. I reviewed the documentation, medical decision making, and treatment plan as noted by the mid-level provider above. I agree with the findings and plan of care. CIELO PORTILLO MD, [facility] Jul 27, 2025 13:57
--- NOTE | 2025-07-27 15:35 | NUR ---
GI CONSULT REQUEST DAUGHTER, MADINA JAFFE, REQUESTING FOR GI CONSULT TO BE PLACED IN MOTHER'S CASE. STATED PATIENT IS NOT GETTING ANY BETTER AND IS STILL C/O PAIN. REQUESTING FOR DR. BECK TO EVALUATE CHART FOR ANY RECOMMENDATIONS. NOTIFIED PRIMARY. PENDING CALLBACK.
--- NOTE | 2025-07-27 16:14 | PN ---
GENERAL SURGERY PROGRESS NOTE Date/Time Patient Seen: [ 07/27/2025 10:15 AM] Interval History: [55-year-old female, postop day #6, diagnostic laparoscopy, abdominal washout, drain placement and diverting loop ileostomy creation by Dr. Gann Continues to complain of abdominal pain but mainly to lateral areas extending to the back, where patient is also having some dependent edema Patient does have a history of liver cirrhosis with possible ascites causing the large serous output from CHRIS drain Nurses have been emptying CHRIS reservoir every 3-4 hours to prevent large volume fluid loss Albumin level continue slow but improved to 2.1 Dr. Gann advance diet yesterday but patient states she continues to feel very bloated when she eats Ileostomy functioning, producing gas and stool WBCs down to 11.8 H&H 10.2/30.6, platelets improved to 123 Vital signs have remained stable] Current Medications Medications (Trade) Dose Ordered Sig/Gregory Route Start Time Stop Time Status Last Admin Dose Admin Albumin Human 100 ml @ 0 mls/hr ONCE IV 07/25/25 12:00 07/26/25 11:59 DC 07/25/25 13:43 100 MLS/HR Cyclobenzaprine HCl (Cyclobenzaprine HCl) 5 mg TID PO 07/25/25 14:00 07/26/25 14:00 DC 07/26/25 14:19 5 MG Fluconazole/ Sodium Chloride (DiFLUCan 200 MG/ NS 100 ML) 200 mg Q24H IVPB 07/21/25 21:00 08/20/25 20:59 07/26/25 21:32 200 MG Furosemide (LASix 20MG TAB) 20 mg DAILY PO 07/25/25 11:00 08/24/25 10:59 07/27/25 09:22 20 MG Insulin Human Regular (humuLIN R 100 UNIT/ML 3ML) INSULIN SLIDING SCAL... ACHS SQ 07/21/25 07:30 08/20/25 07:29 07/22/25 20:40 3 UNIT Lactated Ringer's 1,000 ml @ 75 mls/hr [id number] IV 07/21/25 00:00 07/21/25 13:17 DC 07/21/25 02:57 75 MLS/HR Lactated Ringer's 1,000 ml @ 75 mls/hr [id number] IV 07/21/25 13:30 07/24/25 11:09 DC 07/24/25 09:27 75 MLS/HR Lactobacillus Rhamnosus ([facility] [employer]) 1 each DAILY20 PO 07/26/25 20:00 08/25/25 19:59 07/26/25 21:32 1 EACH Lidocaine (Lidoderm Patch 5%) 1 patch DAILY TP 07/28/25 09:00 08/27/25 08:59 Metronidazole/ Sodium Chloride (flaGYL) 500 mg Q8H IV 07/21/25 14:00 07/21/25 13:40 DC Norepinephrine 250 ml @ 0 mls/hr PROTOCOL IV 07/20/25 23:30 08/19/25 23:29 07/21/25 10:56 18.45 MLS/HR Pantoprazole Sodium (PROTonix 40MG INJ) 40 mg BID IV 07/26/25 21:00 08/20/25 08:59 07/27/25 09:22 40 MG Pantoprazole Sodium (PROTonix 40MG INJ) 40 mg DAILY IV 07/21/25 09:00 07/26/25 09:31 DC 07/26/25 08:55 40 MG Pharmacy Profile Note (Pharmacy Communication) 1 each ONCE MISC 07/21/25 15:30 07/21/25 15:16 DC Piperacillin Sod/ Tazobactam Sod 50 ml @ 200 mls/hr ONCE STAT IVPB 07/20/25 19:15 07/20/25 19:29 DC 07/20/25 20:32 200 MLS/HR Piperacillin Sod/ Tazobactam Sod (Zosyn 3.375gm+NS 50ml) 3.375 gm Q12H IV 07/21/25 00:00 07/31/25 00:00 07/27/25 11:28 3.375 GM Psyllium Hydrophilic Mucilloid (Metamucil) 1 tbs BID PO 07/26/25 21:00 08/25/25 20:59 07/27/25 09:23 1 TBS Simethicone (Mylicon) 80 mg Q6H6 PO 07/27/25 12:00 08/26/25 11:59 07/27/25 11:35 80 MG Sodium Bicarbonate 150 meq/Sodium Chloride 1,150 ml @ 0 mls/hr Q0M IVP 07/21/25 14:00 07/26/25 09:31 DC Spironolactone (Aldactone 25mg) 25 mg BID PO 07/25/25 21:00 07/26/25 09:01 DC 07/26/25 08:56 25 MG Thiamine HCl (Vitamin B-1) 100 mg DAILY IVP 07/22/25 21:00 08/21/25 20:59 07/27/25 09:23 100 MG Thiamine HCl 100 mg/Sodium Chloride 50 ml @ 100 mls/hr Q24H IM 07/21/25 15:30 07/21/25 16:25 DC Vancomycin HCl (Vancomycin 1g/ 250ml Kit) 1 gm ONCE STAT IV 07/20/25 21:23 07/20/25 21:26 DC 07/20/25 22:06 1 GM Vasopressin 20 units/Sodium Chloride 100 ml @ 0 mls/hr PROTOCOL IV 07/21/25 00:30 08/20/25 00:29 07/21/25 00:10 9 MLS/HR Physical Examination: GENERAL: [No acute distress, female, comfortably resting in bed.] HEAD: [Normocephalic.] EYES: [Normal conjunctiva l.] ENT: [Hearing grossly intact.] NECK: [Supple.] LUNGS: [Clear breath sounds bilaterally] HEART: [Normal rate and rhythm.] VASC: [Peripheral pulses +2 bilaterally.] ABD: [Bowel sounds normal, soft, nondistended, ileostomy with healthy functi oning stoma, surgical incisions with edges well approximated with Dermabond, no erythema or drainage, CHRIS in place with serous output, dependent edema bilateral flank area.] : [no bladder distention] EXT: [No edema.] SKIN: [No rashes or lesions noted.] NEURO: [Awake, alert, and oriented x3. No focal sensory or strength deficits noted.] Vital Signs (last 8hr) Date Time Temp Pulse Resp B/P (MAP) Pulse Ox O2 Delivery O2 Flow Rate FiO2 07/27/25 12:00 98.2 82 18 102/64 99 Room Air Laboratory: [ ] Hematology Labs: Test 07/27/25 05:10 Range/Units White Blood Count 11.1 H 4.8-10.8 K/uL Red Blood Count 3.40 L 4.00-5.50 MIL/uL Hemoglobin 10.2 L 12.0-16.0 g/dL Hematocrit 30.6 L 36-48 % Mean Corpuscular Volume 90.0 79-99 fL Mean Corpuscular Hemoglobin 30.0 27.0-33.0 pg Mean Corpuscular Hemoglobin Concent 33.3 32.0-36.0 g/dL Red Cell Distribution Width 17.3 H 11.0-15.5 % Platelet Count 123 L 130-400 K/uL Mean Platelet Volume 10.8 H 7.5-10.5 fL Immature Granulocyte % (Auto) 8.0 H 0-1 % Neutrophils (%) (Auto) 71.9 40.0-77.0 % Lymphocytes (%) (Auto) 8.6 L 21.0-51.0 % Monocytes (%) (Auto) 8.7 3.0-13.0 % Eosinophils (%) (Auto) 2.2 0.0-8.0 % Basophils (%) (Auto) 0.6 0.0-5.0 % Neutrophils # (Auto) 8.0 H 1.8-7.7 K/uL Lymphocytes # (Auto) 1.0 1.0-4.8 K/uL Monocytes # (Auto) 1.0 0.1-1.0 K/uL Eosinophils # (Auto) 0.24 0.00-0.70 K/uL Basophils # (Auto) 0.07 0.00-0.20 K/uL Absolute Immature Granulocyte (auto 0.89 0-1 K/uL Nucleated Red Blood Cells 0.0 0.0-0.19 % Chemistry Labs: Test 07/27/25 12:06 07/27/25 05:10 07/26/25 03:00 Range/Units Whole Blood Glucose 98 70-110 MG/DL Sodium Level 135 L 136-145 mmol/L Potassium Level 3.6 3.5-5.1 mmol/L Chloride Level 104 101-111 mmol/L Carbon Dioxide Level 25 21-32 mmol/L Blood Urea Nitrogen 10 7-18 mg/dL Creatinine 0.6 0.5-1.0 mg/dL Glomerular Filtration Rate Calc 105 >90 mL/min Random Glucose 125 H 70-105 mg/dL Total Calcium 7.8 L 8.5-10.1 mg/dL Magnesium Level 1.70 L 1.80-2.40 mg/dL Total Bilirubin 0.8 0.2-1.0 mg/dL Aspartate Amino Transf (AST/SGOT) 27 10-37 U/L Alanine Aminotransferase (ALT/SGPT) 11 L 12-78 U/L Alkaline Phosphatase 73 50-136 U/L Total Protein 5.0 L 6.0-8.3 g/dL Albumin 2.1 L 3.5-5.0 g/dL Free Thyroxine (T4) Direct 1.45 0.76-1.46 ng/dL Free Triiodothyronine (T3) pg/mL 1.68 L 2.18-3.98 pg/mL Diagnostics / Radiology: [Copy/Paste Echos/Imaging Report here] Impression and Plan: [55-year-old female, postop day #4., diagnostic laparoscopy, abdominal washout, drain placement and diverting loop ileostomy creation by Dr. Gann Patient continues to complain of pain mainly to the lateral abdomen and back area where patient has dependent edema Start lidocaine patch Simethicone 80 mg q.6 hours PT to continue ambulating patient Continues with high output from CHRIS but it is clear serous, most likely related to her ascites from her history of liver cirrhosis Continue spironolactone 25 mg b.i.d. to see if that helps with dependent edema Continue emptying CHRIS drain every 3-4 hours to prevent large volume fluid loss, monitor output Repeat labs in a.m. Surgical team will continue to follow closely Dr. Gann has been updated on patient's status Surgical case has been discussed with my supervising physician Plan was formulated and agreed upon We appreciate the hospitalist team for allowing us to participate in this patient's care Greater than 45 minutes spent examining patient, reviewing chart and working on documentation Time spent reviewing chart, evaluating patient and dictating plan of care greater than 45 minutes ] ATTESTATION BY PHYSICIAN I have seen and examined the patient. I reviewed the documentation, medical d ecision making, and treatment plan as noted by the mid-level provider above. I agree with the findings and plan of care. MD LEANA ISRAEL LETICIA A APRN Jul 27, 2025 16:14
--- NOTE | 2025-07-27 16:30 | NUR ---
GI CONSULT REQUEST PER DARVIN, (RESIDENT), NO NEED FOR GI CONSULT AT THIS TIME. PATIENT CAN FOLLOW UP OUTPATIENT IF NEEDED. NO ORDERS GIVEN. PATIENT NOTIFIED AND VOICED UNDERSTANDING.
[2025-07-27] MEDS: LIDOCAINE 5% TOPICAL PATCH TP ONE (19:25)
--- NOTE | 2025-07-27 23:22 | PN ---
INFECTIOUS DISEASE PROGRESS NOTE Date of Service: Jul 27, 2025 SUBJECTIVE: This is a 55 year old female patient who was seen and examined at bedside in room 432. Patient is awake, alert and oriented x3. Patient is sitting up to the bedside chair. Patient reported pain after eating but no nausea or vomiting. Patient's diet has been advanced to full liquid diet. Per report the CHRIS drain site has been leaking. The WBC is slightly elevated at 11.1 but no fever, temperature is 98.2. We will continue on fluconazole and Zosyn IV. PHYSICAL EXAM EYES: Anicteric. Pupils equal and reactive. HENT: No oral thrush seen, moist Oral mucosa. NECK: Supple, no JVD or thyromegaly. LUNGS: Good air entry. No rales, no rhonchi. CARDIOVASCULAR: S1, S2 regular. No murmur heard. ABDOMEN: Soft, non tender, bowel sounds present, no organomegaly. CHRIS drain. Ileostomy creation. CENTRAL NERVOUS SYSTEM: Awake, alert, oriented x 3. SKIN: No rashes, no swelling. LYMPHATICS: No peripheral lymphadenopathy. MUSCULOSKELETAL: No joint swelling, erythema or tenderness. EXTREMITIES: No cyanosis or clubbing. BACK: No deformity, no pressure ulcer. GENITOURINARY: No dysuria or hematuria. Vital Sign (Last 12 Hours) 07/27/25 07/27/25 12:00 20:00 Temp 98.2 98.6 Pulse 82 92 Resp 18 19 B/P (MAP) 102/64 107/65 Pulse Ox 99 99 O2 Delivery Room Air Room Air Intake & Output (last 24hrs) 07/26/25 07/26/25 07/27/25 15:00 23:00 07:00 Intake Total 750 ml Output Total 1520 ml 680 ml Balance -770 ml -680 ml LABS: Laboratory: Test 07/27/25 19:55 07/27/25 05:10 07/26/25 03:00 Range/Units Whole Blood Glucose 120 H 70-110 MG/DL White Blood Count 11.1 H 4.8-10.8 K/uL Red Blood Count 3.40 L 4.00-5.50 MIL/uL Hemoglobin 10.2 L 12.0-16.0 g/dL Hematocrit 30.6 L 36-48 % Mean Corpuscular Volume 90.0 79-99 fL Mean Corpuscular Hemoglobin 30.0 27.0-33.0 pg Mean Corpuscular Hemoglobin Concent 33.3 32.0-36.0 g/dL Red Cell Distribution Width 17.3 H 11.0-15.5 % Platelet Count 123 L 130-400 K/uL Mean Platelet Volume 10.8 H 7.5-10.5 fL Immature Granulocyte % (Auto) 8.0 H 0-1 % Neutrophils (%) (Auto) 71.9 40.0-77.0 % Lymphocytes (%) (Auto) 8.6 L 21.0-51.0 % Monocytes (%) (Auto) 8.7 3.0-13.0 % Eosinophils (%) (Auto) 2.2 0.0-8.0 % Basophils (%) (Auto) 0.6 0.0-5.0 % Neutrophils # (Auto) 8.0 H 1.8-7.7 K/uL Lymphocytes # (Auto) 1.0 1.0-4.8 K/uL Monocytes # (Auto) 1.0 0.1-1.0 K/uL Eosinophils # (Auto) 0.24 0.00-0.70 K/uL Basophils # (Auto) 0.07 0.00-0.20 K/uL Absolute Immature Granulocyte (auto 0.89 0-1 K/uL Nucleated Red Blood Cells 0.0 0.0-0.19 % Sodium Level 135 L 136-145 mmol/L Potassium Level 3.6 3.5-5.1 mmol/L Chloride Level 104 101-111 mmol/L Carbon Dioxide Level 25 21-32 mmol/L Blood Urea Nitrogen 10 7-18 mg/dL Creatinine 0.6 0.5-1.0 mg/dL Glomerular Filtration Rate Calc 105 >90 mL/min Random Glucose 125 H 70-105 mg/dL Total Calcium 7.8 L 8.5-10.1 mg/dL Magnesium Level 1.70 L 1.80-2.40 mg/dL Total Bilirubin 0.8 0.2-1.0 mg/dL Aspartate Amino Transf (AST/SGOT) 27 10-37 U/L Alanine Aminotransferase (ALT/SGPT) 11 L 12-78 U/L Alkaline Phosphatase 73 50-136 U/L Total Protein 5.0 L 6.0-8.3 g/dL Albumin 2.1 L 3.5-5.0 g/dL Free Thyroxine (T4) Direct 1.45 0.76-1.46 ng/dL Free Triiodothyronine (T3) pg/mL 1.68 L 2.18-3.98 pg/mL ASSESSMENT: Hypoxic respiratory failure requiring oxygen support. Septic shock. Generalized peritonitis. Suspected bowel perforation, s/p diagnostic laparoscopy, abdominal washout, ileostomy creation and CHRIS drain placement on 07/21/2025. Leukocytosis. Acute renal failure. Diabetes mellitus. Recent colovesical fistula repair with sigmoid colon resection and anastomosis on 07/09/2025 PLAN: Continue Zosyn. Continue fluconazole. Continue pain management. Avoid nephrotoxic medications. Continue GI prophylaxis. Continue antidiabetics. Continue physical therapy. This case was reviewed and discussed with my supervising physician Dr. Roger and the above assessment and plan was formulated and agreed upon. ATTESTATION BY PHYSICIAN I have seen and examined the patient. I reviewed the documentation, medical decision making, and treatment plan as noted by the mid-level provider above. I agree with the findings and plan of care. AMIE ROGER MD, [facility] Jul 27, 2025 23:22
[2025-07-28] VITALS (7 sets, daily range): BP systolic 96–128; BP diastolic 48–61; PULSE 74–83; RESP 18–20; TEMP 98–98.4
[2025-07-28 03:55] LABS: IMMATURE GRANULOCYTE ABSOLUTE 0.76 K/uL (0-1); NUCLEATED RED BLOOD CELLS 0.0 % (0.0-0.19); PLATELET COUNT (AUTO) 161 K/uL (130-400); RED BLOOD CELL COUNT(AUTO) 3.27 MIL/uL (4.00-5.50); RED CELL DISTRIBUTION WIDTH 17.6 % (11.0-15.5); WHITE BLOOD COUNT (AUTO) 11.8 K/uL (4.8-10.8)
[2025-07-28 04:19] LABS: ASPARTATE AMINOTRANSFERASE 25.0 U/L (10-37); CREATININE 0.6 mg/dL (0.5-1.0); GLOMERULAR FILTR. RATE CALC 105.0 mL/min (>90); GLUCOSE,RANDOM 119.0 mg/dL (70-105); SODIUM SERUM 131.0 mmol/L (136-145); TOTAL PROTEIN, SERUM 5.1 g/dL (6.0-8.3); UREA NITROGEN, BLOOD 6.0 mg/dL (7-18)
[2025-07-28] MEDS: LIDOCAINE 5% TOPICAL PATCH TP SCH (09:07)
--- NOTE | 2025-07-28 12:05 | PN ---
NEPHROLOGY PROGRESS NOTE Date/Time Patient Seen: Jul 28, 2025 SUBJECTIVE: This is a 55-year-old female with a past medical history of diabetes mellitus type 2, liver cirrhosis, esophageal varices. He presented to the emergency room with chief complain of abdominal pain. CT of the abdomen showed moderate small bowel enteritis with free air in the upper abdomen, suggesting perforated bowel versus post surgical changes. No obs truction. S/p diagnostic laparoscopy, abdominal washout, drain placement and diverting loop ileostomy creation with CHRIS drain 10 Fij[place] on 07/21 She was noted to have elevated BUN/creatinine We are consulted for renal failure Renal function and electrolytes are stable. Family reported patient not tolerating clear liquid diet, pending further surgery recommendations She was seen in the medial floor, in no acute distress No family at the bedside REVIEW OF SYSTEMS: GENERAL: Positive for abdominal pain and nausea NEUROLOGIC: Negative for any blurry vision, blind spots, double vision, facial asymmetry, dysphagia, dysarthria, hemiparesis, hemisensory deficits, vertigo, ataxia. HEENT: Negative for any head trauma, neck trauma, neck stiffness, photophobia, phonophobia, sinusitis, rhinitis. CARDIAC: Negative for any chest pain, dyspnea on exertion, paroxysmal nocturnal dyspnea, peripheral edema. PULMONARY: Negative for any shortness of breath, wheezing, COPD, or TB exposure. GASTROINTESTINAL: Negative for any abdominal pain, nausea, vomiting, bright red blood per rectum, melena. GENITOURINARY: Negative for any dysuria, hematuria, incontinence. INTEGUMENTARY: Negative for any rashes, cuts, insect bites. RHEUMATOLOGIC: Negative for any joint pains, photosensitive rashes, history of vasculitis or kidney problems. HEMATOLOGIC: Negative for any abnormal bruising, frequent infections or bleeding. Vital Signs (last 8hr) Date Time Temp Pulse Resp B/P (MAP) Pulse Ox O2 Delivery O2 Flow Rate FiO2 07/28/25 08:00 98.2 78 18 96/58 94 Room Air PHYSICAL EXAM: GENERAL: Alert and oriented x 3. No acute distress. Well-nourished. EYES: EOMI. Anicteric. HENT: Moist mucous membranes. No scleral icterus. No cervical lymphadenopathy. LUNGS: Clear to auscultation bilaterally. No accessory muscle use. CARDIOVASCULAR: Regular rate and rhythm. No murmur. No JVD. ABDOMEN: Soft, non-tender and non-distended. No palpable masses. EXTREMITIES: No edema. Non-tender SKIN: No rashes or lesions. Warm. NEUROLOGIC: No focal neurological deficits. CN II-XII grossly intact, but not individually tested. PSYCHIATRIC: Cooperative. Appropriate mood and affect. Current Medications Medications (Trade) Dose Ordered Sig/Gregory Route Start Time Stop Time Status Last Admin Dose Admin Albumin Human 100 ml @ 0 mls/hr ONCE IV 07/25/25 12:00 07/26/25 11:59 DC 07/25/25 13:43 100 MLS/HR Cyclobenzaprine HCl (Cyclobenzaprine HCl) 5 mg TID PO 07/25/25 14:00 07/26/25 14:00 DC 07/26/25 14:19 5 MG Fluconazole/ Sodium Chloride (DiFLUCan 200 MG/ NS 100 ML) 200 mg Q24H IVPB 07/21/25 21:00 08/20/25 20:59 07/25/25 20:47 200 MG Furosemide (LASix 20MG TAB) 20 mg DAILY PO 07/25/25 11:00 08/24/25 10:59 07/26/25 08:56 20 MG Insulin Human Regular (humuLIN R 100 UNIT/ML 3ML) INSULIN SLIDING SCAL... ACHS SQ 07/21/25 07:30 08/20/25 07:29 07/22/25 20:40 3 UNIT Lactated Ringer's 1,000 ml @ 75 mls/hr [id number] IV 07/21/25 00:00 07/21/25 13:17 DC 07/21/25 02:57 75 MLS/HR Lactated Ringer's 1,000 ml @ 75 mls/hr [id number] IV 07/21/25 13:30 07/24/25 11:09 DC 07/24/25 09:27 75 MLS/HR Lactobacillus Rhamnosus ([facility] [employer]) 1 each DAILY20 PO 07/26/25 20:00 08/25/25 19:59 Metronidazole/ Sodium Chloride (flaGYL) 500 mg Q8H IV 07/21/25 14:00 07/21/25 13:40 DC Norepinephrine 250 ml @ 0 mls/hr PROTOCOL IV 07/20/25 23:30 08/19/25 23:29 07/21/25 10:56 18.45 MLS/HR Pantoprazole Sodium (PROTonix 40MG INJ) 40 mg BID IV 07/26/25 21:00 08/20/25 08:59 Pantoprazole Sodium (PROTonix 40MG INJ) 40 mg DAILY IV 07/21/25 09:00 07/26/25 09:31 DC 07/26/25 08:55 40 MG Pharmacy Profile Note (Pharmacy Communication) 1 each ONCE MISC 07/21/25 15:30 07/21/25 15:16 DC Piperacillin Sod/ Tazobactam Sod 50 ml @ 200 mls/hr ONCE STAT IVPB 07/20/25 19:15 07/20/25 19:29 DC 07/20/25 20:32 200 MLS/HR Piperacillin Sod/ Tazobactam Sod (Zosyn 3.375gm+NS 50ml) 3.375 gm Q12H IV 07/21/25 00:00 07/31/25 00:00 07/26/25 12:10 3.375 GM Psyllium Hydrophilic Mucilloid (Metamucil) 1 tbs BID PO 07/26/25 21:00 08/25/25 20:59 Sodium Bicarbonate 150 meq/Sodium Chloride 1,150 ml @ 0 mls/hr Q0M IVP 07/21/25 14:00 07/26/25 09:31 DC Spironolactone (Aldactone 25mg) 25 mg BID PO 07/25/25 21:00 07/26/25 09:01 DC 07/26/25 08:56 25 MG Thiamine HCl (Vitamin B-1) 100 mg DAILY IVP 07/22/25 21:00 08/21/25 20:59 07/26/25 08:55 100 MG Thiamine HCl 100 mg/Sodium Chloride 50 ml @ 100 mls/hr Q24H IM 07/21/25 15:30 07/21/25 16:25 DC Vancomycin HCl (Vancomycin 1g/ 250ml Kit) 1 gm ONCE STAT IV 07/20/25 21:23 07/20/25 21:26 DC 07/20/25 22:06 1 GM Vasopressin 20 units/Sodium Chloride 100 ml @ 0 mls/hr PROTOCOL IV 07/21/25 00:30 08/20/25 00:29 07/21/25 00:10 9 MLS/HR LABORATORY: [ ] Hematology Labs: Test 07/28/25 03:27 Range/Units White Blood Count 11.8 H 4.8-10.8 K/uL Red Blood Count 3.27 L 4.00-5.50 MIL/uL Hemoglobin 9.7 L 12.0-16.0 g/dL Hematocrit 30.2 L 36-48 % Mean Corpuscular Volume 92.4 79-99 fL Mean Corpuscular Hemoglobin 29.7 27.0-33.0 pg Mean Corpuscular Hemoglobin Concent 32.1 32.0-36.0 g/dL Red Cell Distribution Width 17.6 H 11.0-15.5 % Platelet Count 161 # 130-400 K/uL Mean Platelet Volume 10.2 7.5-10.5 fL Immature Granulocyte % (Auto) 6.4 H 0-1 % Neutrophils (%) (Auto) 72.8 40.0-77.0 % Lymphocytes (%) (Auto) 8.6 L 21.0-51.0 % Monocytes (%) (Auto) 9.7 3.0-13.0 % Eosinophils (%) (Auto) 2.2 0.0-8.0 % Basophils (%) (Auto) 0.3 0.0-5.0 % Neutrophils # (Auto) 8.6 H 1.8-7.7 K/uL Lymphocytes # (Auto) 1.0 1.0-4.8 K/uL Monocytes # (Auto) 1.2 H 0.1-1.0 K/uL Eosinophils # (Auto) 0.26 0.00-0.70 K/uL Basophils # (Auto) 0.04 0.00-0.20 K/uL Absolute Immature Granulocyte (auto 0.76 0-1 K/uL Nucleated Red Blood Cells 0.0 0.0-0.19 % White Cell Morphology Comment See comments Chemistry Labs: Test 07/28/25 11:07 07/28/25 03:27 Range/Units Whole Blood Glucose 95 70-110 MG/DL Sodium Level 131 L 136-145 mmol/L Potassium Level 3.9 3.5-5.1 mmol/L Chloride Level 101 101-111 mmol/L Carbon Dioxide Level 24 21-32 mmol/L Blood Urea Nitrogen 6 L 7-18 mg/dL Creatinine 0.6 0.5-1.0 mg/dL Glomerular Filtration Rate Calc 105 >90 mL/min Random Glucose 119 H 70-105 mg/dL Total Calcium 7.4 L 8.5-10.1 mg/dL Magnesium Level 2.10 1.80-2.40 mg/dL Total Bilirubin 0.8 0.2-1.0 mg/dL Aspartate Amino Transf (AST/SGOT) 25 10-37 U/L Alanine Aminotransferase (ALT/SGPT) 10 L 12-78 U/L Alkaline Phosphatase 73 50-136 U/L Total Protein 5.1 L 6.0-8.3 g/dL Albumin 1.9 L 3.5-5.0 g/dL DIAGNOSTICS / RADIOLOGY: [address] [id number] IMAGING REPORT Signed PATIENT: DALLAS BUCHANAN MR#: [id number] : 1970 SEX: F AGE: 55 LOCATION: 2BH ORDER 1108 STATUS: ADM IN REPORT#: [id number] SERVICE 1106 REASON: sob ORDERING PHYSICIAN: PREET BOSTON MD PROCEDURE: CXR1VW - CHEST 1VW CHEST 1VW REASON: sob COMPARISON: Study from 07/21/2025 is available. FINDINGS: Single view of the chest was obtained. Lungs are clear. Heart size is normal. There is no pulmonary vascular congestion. There is a right-sided PIC catheter with tip in superior vena cava. There is a nasogastric tube with the tip in the fundus of the stomach. Mediastinum and bony thorax appear unremarkable. IMPRESSION: 1. No acute cardiopulmonary process 2. The support lines are in satisfactory position.. DICTATED BY: GREER FIORE MD DATE: 07/22/25 1350 ELECTRONICALLY SIGNED BY: GREER FIORE MD DATE: 07/22/25 135 PATIENT: DALLAS BUCHANAN MR#: [id number] : 1970 SEX: F AGE: 55 LOCATION: 2BH ORDER 0100 STATUS: ADM IN REPORT#: [id number] SERVICE 0100 REASON: PICC LINE ORDERING PHYSICIAN: HEATHER LEACH APRN PROCEDURE: CXR1VW - CHEST 1VW EXAM: CR Chest, single view. CLINICAL HISTORY: PICC line COMPARISON: Prior same day chest radiograph. FINDINGS: Right-sided PICC catheter with tip in the cavoatrial junction. Subsegmental atelectasis in the right lower lobe. No evidence of pleural effusion or pneumothorax. The cardiomediastinal silhouette is within normal limits. No acute osseous abnormality. IMPRESSION: Right-sided PICC catheter with tip in the cavoatrial junction. Subsegmental atelectasis in the right lower lobe. No evidence of pleural effusion or pneumothorax. Compared to the prior study, there is interval placement of the right-sided PICC line and interval resolution of the subsegmental atelectasis in the left lower lobe. /[facility] DICTATED BY: ELDON MILLER Jr., MD DATE: 07/21/25816 ELECTRONICALLY SIGNED BY: ELDON MILLER Jr., MD DATE: 07/21/25816 PATIENT: DALLAS BUCHANAN MR#: [id number] : 1970 SEX: F AGE: 55 LOCATION: [facility] ORDER 14 STATUS: [facility] REPORT#: [id number] SERVICE 12 REASON: CHEST PAIN/COUGH ORDERING PHYSICIAN: ALHAJI SHINE NP PROCEDURE: CXR1VW - CHEST 1VW EXAM: XR Chest, 1 View. CLINICAL HISTORY: 55 year old female with chest pain and cough. COMPARISON: None provided. FINDINGS: LUNGS: The lungs demonstrate evidence of atelectasis. PLEURAL SPACES: A small right pleural effusion is present. HEART: The heart size is normal. BONES: No acute osseous abnormality. IMPRESSION: 1. Small right pleural effusion and right lung base atelectasis. /[facility] DICTATED BY: EDWIGE LEDESMA MD DATE: 07/20/252046 ELECTRONICALLY SIGNED BY: EDWIGE LEDESMA MD DATE: 07/20/252046 PATIENT: DALLAS BUCHANAN MR#: [id number] : 1970 SEX: F AGE: 55 LOCATION: [facility] ORDER 14 STATUS: REG REPORT#: [id number] SERVICE 12 REASON: Abdominal Pain ORDERING PHYSICIAN: ALHAJI SHINE NP PROCEDURE: ABD PEL W - CT ABDOMEN/PELVIS W/CONTRAST ADDENDUM REPORT ADDENDUM: Results were shared by telephone at 23:23 pm on 07-20-2025 and acknowledged by Pt nurse Ms. SHIN BOYKIN. /[facility] EXAM: CT Abdomen and Pelvis with Intravenous Contrast CLINICAL HISTORY: 55-year-old female with abdominal pain. TECHNIQUE: Axial computed tomography images of the abdomen and pelvis with intravenous contrast. Dose reduction technique was used including one or more of the following: automated exposure control, adjustment of mA and kV according to patient size, and/or iterative reconstruction. CONTRAST: Omnipaque 350, 75 mL COMPARISON: None provided. FINDINGS: LUNG BASES: Atelectasis and scarring at the lung bases. LIVER: Unremarkable. GALLBLADDER AND BILE DUCTS: Tiny gallstone seen. PANCREAS: Unremarkable. SPLEEN: Unremarkable. ADRENAL GLANDS: Unremarkable. KIDNEYS, URETERS, AND BLADDER: Dueñas catheter seen in the bladder lumen. No hydronephrosis or nephrolithiasis. No ureteral calculi. STOMACH AND BOWEL: Edema or loops of small bowel suggesting moderate small bowel enteritis. Free air in the upper abdomen is seen, suggesting perforated bowel. No obstruction. APPENDIX: No CT evidence for appendicitis. PERITONEUM: Moderate ascites in the abdomen and pelvis. No free air under the diaphragm. LYMPH NODES: No lymphadenopathy. REPRODUCTIVE: Unremarkable as visualized. VASCULATURE: No aortic aneurysm. ABDOMINAL WALL AND SOFT TISSUES: There is air in the subcutaneous soft tissue seen anteriorly, suggesting recent postsurgical changes; please correlate with surgical history. BONES: No fracture or suspicious osseous abnormality. IMPRESSION: 1. Moderate small bowel enteritis with free air in the upper abdomen, suggesting perforated bowel versus post surgical changes. No obstruction. 2. Moderate ascites in the abdomen and pelvis. 3. Air in the subcutaneous soft tissue anteriorly, suggesting recent postsurgical changes; please correlate with surgical history. /[facility] DICTATED BY: EDWIGE LEDESMA MD DATE: 07/20/25 6537 ELECTRONICALLY SIGNED BY: DATE: EXAM: CT Abdomen and Pelvis with Intravenous Contrast CLINICAL HISTORY: 55-year-old female with abdominal pain. TECHNIQUE: Axial computed tomography images of the abdomen and pelvis with intravenous contrast. Dose reduction technique was used including one or more of the following: automated exposure control, adjustment of mA and kV according to patient size, and/or iterative reconstruction. CONTRAST: Omnipaque 350, 75 mL COMPARISON: None provided. FINDINGS: LUNG BASES: Atelectasis and scarring at the lung bases. LIVER: Unremarkable. GALLBLADDER AND BILE DUCTS: Tiny gallstone seen. PANCREAS: Unremarkable. SPLEEN: Unremarkable. ADRENAL GLANDS: Unremarkable. KIDNEYS, URETERS, AND BLADDER: Dueñas catheter seen in the bladder lumen. No hydronephrosis or nephrolithiasis. No ureteral calculi. STOMACH AND BOWEL: Edema or loops of small bowel suggesting moderate small bowel enteritis. Free air in the upper abdomen is seen, suggesting perforated bowel. No obstruction. APPENDIX: No CT evidence for appendicitis. PERITONEUM: Moderate ascites in the abdomen and pelvis. No free air under the diaphragm. LYMPH NODES: No lymphadenopathy. REPRODUCTIVE: Unremarkable as visualized. VASCULATURE: No aortic aneurysm. ABDOMINAL WALL AND SOFT TISSUES: There is air in the subcutaneous soft tissue seen anteriorly, suggesting recent postsurgical changes; please correlate with surgical history. BONES: No fracture or suspicious osseous abnormality. IMPRESSION: 1. Moderate small bowel enteritis with free air in the upper abdomen, suggesting perforated bowel versus post surgical changes. No obstruction. 2. Moderate ascites in the abdomen and pelvis. 3. Air in the subcutaneous soft tissue anteriorly, suggesting recent postsurgical changes; please correlate with surgical history. /[facility] DICTATED BY: EDWIGE LEDESMA MD DATE: 07/20/25 5688 ELECTRONICALLY SIGNED BY: EDWIGE LEDESMA MD DATE: 07/20/25 9182 ASSESSMENT: Acute kidney injury Bilious peritonitis 2 mm perforation of the colonic anastomosis Diabetes Mellitus Type 2 Septic Shock Cirrhosis of liver Oesophageal Varices PLAN: Labs, diagnostic, radiologic exams reviewed and interpreted by myself and supervising physician. We have reviewed external records in detail Pending further surgery recommendations Require close monitoring of renal function and electrolytes Order CBC, CMP, and electrolytes in am Continue with antibiotics BiPAP as necessary, for respiratory distress Monitor blood pressure adjust medication doses as needed Avoid hypotensive episodes May use Dilaudid 0.5 mg IV every 6 hours as needed for severe pain Monitor blood sugars Strict intake, output, and daily weight should be monitored Please renally adjust medications Avoid nephrotoxic and nonsteroidal drugs Avoid contrast if possible Will continue to monitor renal function, anemia, electrolytes Treatment plan discussed with patient Questions were answered We have discussed with the other team physicians in detail about the care plan We will continue to monitor the patient closely ATTESTATION BY PHYSICIAN I have seen and examined the patient. I reviewed the documentation, medical decision making, and treatment plan as noted by the mid-level provider above. I agree with the findings and plan of care. CIELO PORTILLO MD, [facility] Jul 28, 2025 12:05
--- NOTE | 2025-07-28 15:02 | PN ---
[facility] PROGRESS NOTE Date of Service: Jul 28, 2025 Time of Service: 14:51 SUBJECTIVE: Ms. Gray is a 55-year-old female that was seen and examined today on 07/20/2025. Patient reports that she came to the emergency department with a chief complaint of abdominal pain. Onset was 07/09/2025. Location is all four quadrants. Duration is constant. Character is described as pressure and " like I have a lot of gas trapped. " there was no alleviating factors. There was no aggravating factors. Patient reports associated abdominal swelling. 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 After the discharge she was taking pain medications and her condition started worsening after few days. She is in constant follow up with Dr Gann. Today in the emergency department WBCs 21.2, left shift neutrophils 85.5%, BUN 26, creatinine 3.1, GFR 17, lactic acid 8.0, no urinalysis has been collected or sent to lab, CT of abdomen and pelvis showed of free air in the abdomen which could be a suspected bowel perforation versus postsurgical changes, moderate ascites, fissure post surgical changes. Chest x-ray shows right pleural effusion. Additionally patient had a heart rate of 125, respirations 26, together with leukocytosis and lactic acidosis patient met clinical sepsis criteria additionally patient's blood pressure dropped to 85/50 mmHg requiring vasopressor support therefore meeting criteria for septic shock. Patient will be admitted to the intensive care unit. Emergency room physician spoke with patient's surgeon, Dr. Gann who requested patient be admitted under hospitalist service and she will follow this case along. 07/21/25 Patient was evaluated at the bedside. She was accompanied by her daughter. She is oriented to the time, place and person. She complained of abdominal pain in all the quadrants. She hasn't had bowel movement since Saturday and also is unable to pass flatus at this time. She has guarding, rigidity and tenderness all over the abdomen, showing the signs of peritonitis. She was seen by Dr Gann this mo rning and is planned to be taken to OR this afternoon. Dueñas catheter is in place, as she wasn't able to pass the urine. There is no fever, chills and any other signs of infection. 07/22/25 Patient was evaluated at the bedside. She was accompanied by her daughter. She is oriented to the time, place and person. She underwent Diagnostic laparoscopy, abdominal washout, drain placement and diverting loop ileostomy creation, The procedure revealed Bilious peritonitis, 2 mm perforation of the colonic anastomosis. She is hemodynamically stable with Blood pressure of 110/73 and HR of 83. Currently she complains of abdominal pain which is getting better than yesterday, its 3-4/10 intensity. There is no rigidity. She is anxious about the outcomes and had discussion regarding her current clinical status and lab parameters. There is no fever, chills and any other signs of infection. 07/23/25 Patient was evaluated at the bedside. She was accompanied by her daughter. She is oriented to the time, place and person. She status post diagnostic laparoscopy, abdominal washout, drain placement and diverting loop ileostomy creation. Currently she complains of abdominal pain which is 5/10 intensity. She also complaints of mild lower back pain There is no fever, chills and any other signs of infection. She has CHRIS drain in-situ with clear fluid along with colostomy bag. She is currently tolerating clear liquid diet. 07/24/2025 Patient is seen and examined at the bedside. Vitals blood pressure ranging in 100s/50s, pulse rate 50s, SpO2 greater than 95% on room air. She mentions about experiencing pressure-like discomfort on the right side of the abdomen and pain when she tries to eat. No acute events last night. She denies fever, chills, nausea, vomiting, chest pain. CHRIS output approximately 100cc/hr, serosanguineous fluid. Ileostomy bag in place. She is tolerating clear liquid diet without any nausea/vomiting. Labs hemoglobin 9.8, BUN 38, creatinine improved from 1.6-1.1. 07/25/2025 Patient is seen and examined at the bedside. She complains of abdominal pain which is 7/10 in intensity. No acute events last night. She denies fever, chills, nausea, vomiting, chest pain. CHRIS output approximately 100cc/hr, serosanguineous fluid. Ileostomy bag in place. The patient has been started on spironolactone 25mg BID and Lasix 20 mg once daily. There is high output from CHRIS but it is clear serous, most likely related to her ascites from her history of liver cirrhosis. She is tolerating clear liquid diet without any nausea/vomiting. 07/26/2025 Patient is seen and examined at the bedside. She complains of abdominal pain which remains constant. No acute events last night. She denies fever, chills, nausea, vomiting, chest pain. Patient is status post with a CHRIS drain. The drain has been collecting the serosanguineous fluid secondary to ascites. She has been tolerating liquid diet and her diet has been advanced to soft diet. She still nielsen s bloating for which probiotics and fibers has been recommended. Hemoglobin has gradually trended down to 9.2 and was given IV Venofer. Patient to get up and ambulate and work with physical therapy. 07/27/2025 Patient is seen and examined at the bedside. She complains of abdominal pain which is 6/10 in intensity. No acute events last night. She denies fever, chills, nausea, vomiting, chest pain. Patient is unable to tolerate the soft diet, hence she is currently receiving the liquid diets. The CHRIS drain output is still high and there was small amount of drainage observed in the right ileostomy. 07/28/2025 Patient is seen and examined at the bedside. She complains of abdominal pain which is 9/10 in intensity. No acute events last night. She denies fever, chills, nausea, vomiting, chest pain. Patient reported pain after eating but no nausea or vomiting. WBC is gradually trending up from 8.3-7.3-11.1-11.8. She had lidocaine patch placed this morning. She was started on simethicone 80 mg yesterday. Pertinent she is currently receiving Dilaudid 0.5 mg. Abdominal ultrasound has been ordered for further assessment. REVIEW OF SYSTEMS CONSTITUTIONAL: No fever, chills, or night sweats. NEUROLOGICAL: Denies headache, sensory and motor deficit. CARDIOVASCULAR: Denies any exertional angina, dyspnea on exertion, palpitations. PULMONARY: Denies any shortness of breath, cough, phlegm/sputum, hemoptysis, pleuritic chest pain. GASTROINTESTINAL: Patient complains of diffuse abdominal pain 9/10 intensity. She also has bloating. Denies nausea, vomiting. GENITOURINARY: Denies frequency, urgency, nocturia, hematuria or incontinence. PHYSICAL EXAM GENERAL APPEARANCE: The patient is alert, awake and oriented and bedbound. NEUROLOGICAL: No sensory and motor deficits. CHEST: Normal chest expansion. LUNGS: Normal Vesicular breath sound. Absence of any rales, rhonchi or any wheezing. CARDIOVASCULAR: Regular. S1 and S2 normal. No appreciable rubs, murmurs or ga llops. ABDOMEN: Abdomen is soft and slightly tender. CHRIS drain is placed. Ileostomy creation. Absence of guarding, rigidity and rebound tenderness. GENITOURINARY: No suprapubic tenderness. No costovertebral angle tenderness. Vital Signs (last 8hr) Date Time Temp Pulse Resp B/P (MAP) Pulse Ox O2 Delivery O2 Flow Rate FiO2 07/28/25 12:00 98.1 78 18 99/61 93 Room Air 21 07/28/25 08:00 98.2 78 18 96/58 94 Room Air LABS: Laboratory: Test 07/28/25 11:07 07/28/25 03:27 Range/Units Whole Blood Glucose 95 70-110 MG/DL White Blood Count 11.8 H 4.8-10.8 K/uL Red Blood Count 3.27 L 4.00-5.50 MIL/uL Hemoglobin 9.7 L 12.0-16.0 g/dL Hematocrit 30.2 L 36-48 % Mean Corpuscular Volume 92.4 79-99 fL Mean Corpuscular Hemoglobin 29.7 27.0-33.0 pg Mean Corpuscular Hemoglobin Concent 32.1 32.0-36.0 g/dL Red Cell Distribution Width 17.6 H 11.0-15.5 % Platelet Count 161 # 130-400 K/uL Mean Platelet Volume 10.2 7.5-10.5 fL Immature Granulocyte % (Auto) 6.4 H 0-1 % Neutrophils (%) (Auto) 72.8 40.0-77.0 % Lymphocytes (%) (Auto) 8.6 L 21.0-51.0 % Monocytes (%) (Auto) 9.7 3.0-13.0 % Eosinophils (%) (Auto) 2.2 0.0-8.0 % Basophils (%) (Auto) 0.3 0.0-5.0 % Neutrophils # (Auto) 8.6 H 1.8-7.7 K/uL Lymphocytes # (Auto) 1.0 1.0-4.8 K/uL Monocytes # (Auto) 1.2 H 0.1-1.0 K/uL Eosinophils # (Auto) 0.26 0.00-0.70 K/uL Basophils # (Auto) 0.04 0.00-0.20 K/uL Absolute Immature Granulocyte (auto 0.76 0-1 K/uL Nucleated Red Blood Cells 0.0 0.0-0.19 % White Cell Morphology Comment See comments Sodium Level 131 L 136-145 mmol/L Potassium Level 3.9 3.5-5.1 mmol/L Chloride Level 101 101-111 mmol/L Carbon Dioxide Level 24 21-32 mmol/L Blood Urea Nitrogen 6 L 7-18 mg/dL Creatinine 0.6 0.5-1.0 mg/dL Glomerular Filtration Rate Calc 105 >90 mL/min Random Glucose 119 H 70-105 mg/dL Total Calcium 7.4 L 8.5-10.1 mg/dL Magnesium Level 2.10 1.80-2.40 mg/dL Total Bilirubin 0.8 0.2-1.0 mg/dL Aspartate Amino Transf (AST/SGOT) 25 10-37 U/L Alanine Aminotransferase (ALT/SGPT) 10 L 12-78 U/L Alkaline Phosphatase 73 50-136 U/L Total Protein 5.1 L 6.0-8.3 g/dL Albumin 1.9 L 3.5-5.0 g/dL Current Medications Medications (Trade) Dose Ordered Sig/Gregory Route PRN Reason Start Time Stop Time Status Last Admin Dose Admin Acetaminophen (TYLenol 500MG TAB) 500 mg Q6H6 PRN PO MILD PAIN (1-3) 07/27/25 16:30 08/26/25 16:29 Acetaminophen (TYLenol 650MG SUPPOSITORY) 650 mg Q6H PRN RC MILD PAIN (1-3) 07/21/25 00:00 07/27/25 16:22 DC Albumin Human 100 ml @ 0 mls/hr ONCE IV 07/25/25 12:00 07/26/25 11:59 DC 07/25/25 13:43 100 MLS/HR Cyclobenzaprine HCl (Cyclobenzaprine HCl) 5 mg TID PO 07/25/25 14:00 07/26/25 14:00 DC 07/26/25 14:19 5 MG Fluconazole/ Sodium Chloride (DiFLUCan 200 MG/ NS 100 ML) 200 mg Q24H IVPB 07/21/25 21:00 08/20/25 20:59 07/27/25 20:32 200 MG Furosemide (LASix 20MG TAB) 20 mg DAILY PO 07/25/25 11:00 08/24/25 10:59 07/28/25 09:07 20 MG Hydromorphone HCl (DiLAUDid 0.5MG INJ) 0.5 mg Q4H PRN IVP SEVERE PAIN (7-10) 07/24/25 10:00 07/29/25 09:59 07/28/25 13:29 0.5 MG Insulin Human Regular (humuLIN R 100 UNIT/ML 3ML) INSULIN SLIDING SCAL... ACHS SQ 07/21/25 07:30 08/20/25 07:29 07/22/25 20:40 3 UNIT Lactated Ringer's 1,000 ml @ 75 mls/hr [id number] IV 07/21/25 00:00 07/21/25 13:17 DC 07/21/25 02:57 75 MLS/HR Lactated Ringer's 1,000 ml @ 75 mls/hr [id number] IV 07/21/25 13:30 07/24/25 11:09 DC 07/24/25 09:27 75 MLS/HR Lactobacillus Rhamnosus ([facility] [employer]) 1 each DAILY20 PO 07/26/25 20:00 08/25/25 19:59 07/27/25 19:26 1 EACH Lidocaine (Lidoderm Patch 5%) 1 patch DAILY TP 07/28/25 09:00 08/27/25 08:59 07/28/25 09:07 1 PATCH Magnesium Sulfate 50 ml @ 0 mls/hr PROTOCOL PRN IV MAGNESIUM PROTOCOL 07/21/25 07:00 08/20/25 06:59 07/27/25 17:54 25 MLS/HR Metronidazole/ Sodium Chloride (flaGYL) 500 mg Q8H IV 07/21/25 14:00 07/21/25 13:40 DC Morphine Sulfate (morPHINE 2MG SYG) 2 mg Q4H PRN IVP SEVERE PAIN (7-10) 07/21/25 00:30 07/21/25 13:18 DC 07/21/25 04:46 2 MG Morphine Sulfate (morPHINE 4MG SYG) 4 mg Q3H PRN IV MODERATE PAIN (4-6) 07/21/25 13:30 07/26/25 16:29 DC 07/26/25 10:51 4 MG Norepinephrine 250 ml @ 0 mls/hr PROTOCOL IV 07/20/25 23:30 08/19/25 23:29 07/21/25 10:56 18.45 MLS/HR Ondansetron HCl (zoFRAN 4MG INJ) 4 mg Q4H PRN IVP NAUSEA 07/21/25 13:30 08/20/25 13:29 Ondansetron HCl (zoFRAN 4MG INJ) 4 mg Q6H PRN IV NAUSEA/VOMITING 07/21/25 00:00 07/21/25 13:18 DC Pantoprazole Sodium (PROTonix 40MG INJ) 40 mg BID IV 07/26/25 21:00 08/20/25 08:59 07/28/25 09:07 40 MG Pantoprazole Sodium (PROTonix 40MG INJ) 40 mg DAILY IV 07/21/25 09:00 07/26/25 09:31 DC 07/26/25 08:55 40 MG Pharmacy Profile Note (Pharmacy Communication) 1 each ONCE MISC 07/21/25 15:30 07/21/25 15:16 DC Piperacillin Sod/ Tazobactam Sod 50 ml @ 200 mls/hr ONCE STAT IVPB 07/20/25 19:15 07/20/25 19:29 DC 07/20/25 20:32 200 MLS/HR Piperacillin Sod/ Tazobactam Sod (Zosyn 3.375gm+NS 50ml) 3.375 gm Q12H IV 07/21/25 00:00 07/31/25 00:00 07/28/25 11:46 3.375 GM Potassium Chloride 100 ml @ 100 mls/hr AD PRN IV POTASSIUM PROTOCOL 07/24/25 08:30 08/23/25 08:29 Potassium Chloride (K-Dur/Klor-Con 20meq) 20 meq AD PRN PO POTASSIUM PROTOCOL 07/24/25 08:30 08/23/25 08:29 07/27/25 20:33 20 MEQ Potassium Chloride (KCl 10% Elixir 20meq/15ml) 20 meq AD PRN PO POTASSIUM PROTOCOL 07/24/25 08:30 08/23/25 08:29 Psyllium Hydrophilic Mucilloid (Metamucil) 1 tbs BID PO 07/26/25 21:00 08/25/25 20:59 07/28/25 09:07 1 TBS Simethicone (Mylicon) 80 mg Q6H6 PO 07/27/25 12:00 08/26/25 11:59 07/28/25 11:46 80 MG Sodium Bicarbonate 150 meq/Sodium Chloride 1,150 ml @ 0 mls/hr Q0M IVP 07/21/25 14:00 07/26/25 09:31 DC Spironolactone (Aldactone 25mg) 25 mg BID PO 07/25/25 21:00 07/26/25 09:01 DC 07/26/25 08:56 25 MG Thiamine HCl (Vitamin B-1) 100 mg DAILY IVP 07/22/25 21:00 08/21/25 20:59 07/28/25 09:07 100 MG Thiamine HCl 100 mg/Sodium Chloride 50 ml @ 100 mls/hr Q24H IM 07/21/25 15:30 07/21/25 16:25 DC Vancomycin HCl (Vancomycin 1g/ 250ml Kit) 1 gm ONCE STAT IV 07/20/25 21:23 07/20/25 21:26 DC 07/20/25 22:06 1 GM Vasopressin 20 units/Sodium Chloride 100 ml @ 0 mls/hr PROTOCOL IV 07/21/25 00:30 08/20/25 00:29 07/21/25 00:10 9 MLS/HR DIAGNOSTICS / RADIOLOGY: [ ] ASSESSMENT: Suspected Bowel Perforation POA Bilious peritonitis s/p Diagnostic laparoscopy, abdominal washout, drain placement and diverting loop ileostomy creation Diabetes Mellitus Type 2 POA Acute Kidney Injury POA Septic Shock POA Cirrhosis of liver POA Esophageal Varices Recent Robotic takedown of splenic flexure mobilization, robotic takedown of colovesical fistula with sigmoid colectomy and end-to-end anastomosis surgery PLAN: Bilious peritonitis status post Diagnostic laparoscopy, abdominal washout, drain placement and diverting loop ileostomy creation She is able to tolerate the clear liquid diet -Continue close monitoring of the patient -continue physical therapy -Monitor CHRIS drain output -Continues with high output from CHRIS but it is clear serous, most likely related to her ascites from her history of liver cirrhosis -Continue Lactated Ringer's at 75 ml/hr for volume resuscitation and electrolyte replacement -continue Zosyn [day 4 ] and fluconazole [day 4] -Patient has ongoing abdominal pain, currently awaiting for the clinical symptoms to improve for the discharge in 24-48 hrs. 07/25/25 -Flexeril 5 mg t.i.d. has been started by the Surgery team. -Hemoglobin has gradually trended down to 9.2 and planning to start her on IV Venofer. 07/26/25 -Advance diet to Soft diet -Probiotics and Fibers have been added for bloating. -As per the Surgery: Waiting for the symptoms to resolve and see if she can tolerate the advanced diet for proper discharge timeline. -Protonix IV increased to twice daily. * Patient could not tolerate soft diet, currently receiving liquid diet only. 07/27/25 * Her WBC has trended up (11.3), we will closely monitor the patient * General Surgery team is following up the patient closely. * Patient reported pain after eating but no nausea or vomiting. She had lidocaine patch placed this morning. * Currently receiving Dilaudid 0.5 mg. * Abdominal ultrasound has been ordered for further assessment. * PT to continue ambulating patient * Albumin 25% as IV, 50ml administered on 07/28/2025. * Continue emptying CHRIS drain every 3-4 hours to prevent large volume fluid loss, monitor output. * Started on simethicone 80 mg q.6 per oral. 07/28/25 Bowel Perforation, Dehiscence of the anastomosis - Patient had repair of colo vesicular fistula with sigmoid colon resection and anastomosis on 07/09/25. - CT abdominal pelvis w/contrast done on 07/20/2025 showed Free air in the upper abdomen is seen, suggesting perforated bowel vs post surgical changes. No obstruction. -underwent Diagnostic laparoscopy, abdominal washout, drain placement and diverting loop ileostomy creation for biliary peritonitis Septic Shock -resolved -WBC is gradually trending up from 8.3-7.3-11.1-11.8. 07/28/25 -Her WBC during the presentation was 21.2 and today its 7.3. 07/26/25 -lactic acid normal at 1.6 yesterday -blood and urine culture results are negative Acute Kidney Injury Resolved -Creatinine improved from 1.6-1.1-0.7-0.6-0.6-0.6. 07/28/25 -Initial FeNA is 0.1 %, probably secondary to dehydration and NSAIDs overuse. -initial Urine sodium is < 13 and urine creatinine is 132.17. -Avoid nephrotoxic agents, eg. NSAIDS. -Weight patient daily. -Monitor intake and output. Cirrhosis of liver -Patient has a past history of cirrhosis of liver. -Ammonia level was 33 which reduced from 40. 07/23/25. - Liver functions are within normal limits. AST 23, ALT 12 and ALP 108. - Avoid NSAIDs and high dose acetaminophen. -Maintain appropriate volume of the patient. * Patient has been started on Spironolactone 25 mg b.i.d. and Lasix 20 mg once daily. 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 -Monitor Vitals and perform morning labs regularly Continue GI prophylaxis with Pantop Continue DVT prophylaxis with SCDs, we will avoid heparin due to history of allergies to porcine, we will coordinate with surgery consult on initiation of other anticoagulants ATTESTATION BY PHYSICIAN I have seen and examined the patient. I reviewed the documentation, medical decision making, and treatment plan as noted by the resident provider above. I agree with the findings and plan of care. Hiren Castillo MD, SUZIT MD Jul 28, 2025 15:02
--- NOTE | 2025-07-28 16:49 | PN ---
This is a 55-year-old female postop day seven for diagnostic laparoscopy with the abdominal washout and drain placement and diverting loop ileostomy creation by Dr. Gann Interval history: This 55-year-old female seen in her room resting Patient continues to have high output from CHRIS drains likely ascites Ostomy functioning properly with a bridge still in place Patient is however reporting upper quadrant discomfort which likely is related to ascites Patient reports discomfort with every meal currently on clear liquids Labs and vitals stable Dueñas still in place Physical exam General: Awake alert and oriented Heart: Regular rate and rhythm} Lungs: Clear to auscultation no distress Abdomen: [Soft, nontender, nondistended right upper quadrant discomfort likely related to ascites Stomach good color and bridge in place CHRIS with with a high volume output of serous fluid Dueñas in place Assessment : This is a 55-year-old female postop day seven for diagnostic laparoscopy with the abdominal washout and drain placement and diverting loop ileostomy creation by Dr. Gann Plan: This point in time Dr. Gann to be updated on patient's status Patient to remain on diet Continue to monitor output of CHRIS drains with scheduled fluid removal to avoid episodes of hypotension Dr. Gann to be communicated with the about removal of Dueñas Stoma bridge likely to be removed tomorrow Surgical team to follow patient closely nursing report any further acute events Surgical case has been discussed with my supervising physician in the above plan was formulated and agreed upon We appreciate the hospitalist team for us to participate in patient's care. Greater than 45 minutes of time spent patient, reviewing chart, working on documentation Vitals/Labs Vital Signs Date Time Temp Pulse Resp B/P (MAP) Pulse Ox O2 Delivery O2 Flow Rate FiO2 07/28/25 12:00 98.1 78 18 99/61 93 Room Air 21 07/27/25 19:15 0 Laboratory Tests 07/28/25 03:27 Medications Current Medications Sodium Chloride 1,000 ml @ 0 mls/hr ONCE ONCE IV; Start 07/20/25 at 18:30; Stop 07/20/25 at 18:31; Status DC Piperacillin Sod/ Tazobactam Sod 50 ml @ 200 mls/hr ONCE STAT IVPB Last administered on 07/20/25at 20:32; Start 07/20/25 at 19:15; Stop 07/20/25 at 19:29; Status DC Sodium Chloride 2,109 ml @ 703 mls/hr ONCE ONCE IV Last administered on 07/20/25at 20:28; Start 07/20/25 at 19:30; Stop 07/20/25 at 22:29; Status DC Iohexol 75 ml STK-MED ONCE IV; Start 07/20/25 at 20:31; Stop 07/20/25 at 20:31; Status DC Vancomycin HCl 1 gm ONCE STAT IV Last administered on 07/20/25at 22:06; Start 07/20/25 at 21:23; Stop 07/20/25 at 21:26; Status DC Morphine Sulfate 4 mg ONCE ONCE IVP Last administered on 07/20/25at 23:15; Start 07/20/25 at 23:30; Stop 07/20/25 at 23:31; Status DC Ondansetron HCl 4 mg ONCE ONCE IVP Last administered on 07/20/25at 23:14; Start 07/20/25 at 23:30; Stop 07/20/25 at 23:31; Status DC Norepinephrine 250 ml @ 0 mls/hr PROTOCOL IV Last administered on 07/21/25at 10:56; Start 07/20/25 at 23:30; Stop 08/19/25 at 23:29 Piperacillin Sod/ Tazobactam Sod 3.375 gm Q12H IV Last administered on 07/28/25at 11:46; Start 07/21/25 at 00:00; Stop 07/31/25 at 00:00 Acetaminophen 650 mg Q6H PRN RC; Start 07/21/25 at 00:00; Stop 07/27/25 at 16:22; Status DC Pantoprazole Sodium 40 mg DAILY IV Last administered on 07/26/25at 08:55; Start 07/21/25 at 09:00; Stop 07/26/25 at 09:31; Status DC Ondansetron HCl 4 mg Q6H PRN IV; Start 07/21/25 at 00:00; Stop 07/21/25 at 13:18; Status DC Morphine Sulfate 2 mg Q4H PRN IVP Last administered on 07/21/25at 04:46; Start 07/21/25 at 00:30; Stop 07/21/25 at 13:18; Status DC Lactated Ringer's 1,000 ml @ 75 mls/hr [id number] IV Last administered on 07/21/25at 02:57; Start 07/21/25 at 00:00; Stop 07/21/25 at 13:17; Status DC Insulin Human Regular INSULIN SLIDING SCAL... ACHS SQ Last administered on 07/22/25at 20:40; Start 07/21/25 at 07:30; Stop 08/20/25 at 07:29 Vasopressin 20 units/Sodium Chloride 100 ml @ 0 mls/hr PROTOCOL IV Last administered on 07/21/25at 00:10; Start 07/21/25 at 00:30; Stop 08/20/25 at 00:29 Vasopressin 20 units STK-MED ONCE .ROUTE; Start 07/21/25 at 00:10; Stop 07/21/25 at 00:11; Status DC Magnesium Sulfate 50 ml @ 0 mls/hr PROTOCOL PRN IV Last administered on 07/27/25at 17:54; Start 07/21/25 at 07:00; Stop 08/20/25 at 06:59 Acetaminophen 100 ml @ As Directed STK-MED ONCE .ROUTE; Start 07/21/25 at 09:42; Stop 07/21/25 at 09:42; Status DC Famotidine 20 mg STK-MED ONCE IV; Start 07/21/25 at 09:42; Stop 07/21/25 at 09:42; Status DC Albumin Human 500 ml @ As Directed STK-MED ONCE IV; Start 07/21/25 at 09:45; Stop 07/21/25 at 09:45; Status DC Phenylephrine HCl 10 mg STK-MED ONCE IV; Start 07/21/25 at 09:48; Stop 07/21/25 at 09:48; Status DC Dexamethasone Sodium Phosphate 10 mg STK-MED ONCE .ROUTE; Start 07/21/25 at 09:52; Stop 07/21/25 at 09:52; Status DC Ondansetron HCl 4 mg STK-MED ONCE .ROUTE; Start 07/21/25 at 09:52; Stop 07/21/25 at 09:52; Status DC Lidocaine HCl 100 mg STK-MED ONCE .ROUTE; Start 07/21/25 at 09:52; Stop 07/21/25 at 09:52; Status DC Succinylcholine Chloride 200 mg STK-MED ONCE .ROUTE; Start 07/21/25 at 09:53; Stop 07/21/25 at 09:53; Status DC Glycopyrrolate 1 mg STK-MED ONCE .ROUTE; Start 07/21/25 at 09:53; Stop 07/21/25 at 09:53; Status DC Fentanyl Citrate 100 mcg STK-MED ONCE .ROUTE; Start 07/21/25 at 09:54; Stop 07/21/25 at 09:54; Status DC Propofol 200 mg STK-MED ONCE IV; Start 07/21/25 at 09:54; Stop 07/21/25 at 09:54; Status DC Neostigmine Methylsulfate 10 mg STK-MED ONCE IV; Start 07/21/25 at 09:54; Stop 07/21/25 at 09:54; Status DC Rocuronium Offerman 50 mg STK-MED ONCE .ROUTE; Start 07/21/25 at 09:54; Stop 07/21/25 at 09:54; Status DC Ketamine HCl 50 mg STK-MED ONCE .ROUTE; Start 07/21/25 at 09:55; Stop 07/21/25 at 09:56; Status DC Epinephrine HCl 1 mg STK-MED ONCE .ROUTE; Start 07/21/25 at 10:03; Stop 07/21/25 at 10:03; Status DC Midazolam HCl 2 mg STK-MED ONCE .ROUTE; Start 07/21/25 at 10:05; Stop 07/21/25 at 10:05; Status DC Indocyanine Green 25 mg STK-MED ONCE IJ; Start 07/21/25 at 10:49; Stop 07/21/25 at 10:49; Status DC Ephedrine Sulfate 50 mg STK-MED ONCE .ROUTE; Start 07/21/25 at 11:17; Stop 07/21/25 at 11:17; Status DC Bupivacaine HCl 5 mg STK-MED ONCE .ROUTE Last administered on 07/21/25at 12:14; Start 07/21/25 at 11:49; Stop 07/21/25 at 11:49; Status DC Sodium Bicarbonate 200 ml @ As Directed STK-MED ONCE .ROUTE; Start 07/21/25 at 12:19; Stop 07/21/25 at 12:19; Status DC Fentanyl Citrate 100 mcg STK-MED ONCE .ROUTE; Start 07/21/25 at 12:23; Stop 07/21/25 at 12:23; Status DC Phytonadione 10 mg STK-MED ONCE .ROUTE; Start 07/21/25 at 13:05; Stop 07/21/25 at 13:05; Status DC Lactated Ringer's 1,000 ml @ 75 mls/hr [id number] IV Last administered on 07/24/25at 09:27; Start 07/21/25 at 13:30; Stop 07/24/25 at 11:09; Status DC Morphine Sulfate 4 mg Q3H PRN IV Last administered on 07/26/25at 10:51; Start 07/21/25 at 13:30; Stop 07/26/25 at 16:29; Status DC Ondansetron HCl 4 mg Q4H PRN IVP; Start 07/21/25 at 13:30; Stop 08/20/25 at 13:29 Fentanyl Citrate 100 mcg STK-MED ONCE .ROUTE; Start 07/21/25 at 13:26; Stop 07/21/25 at 13:26; Status DC Sodium Bicarbonate 150 meq/Sodium Chloride 1,150 ml @ 0 mls/hr Q0M IVP; Start 07/21/25 at 14:00; Stop 07/26/25 at 09:31; Status DC Sodium Bicarbonate 100 meq ONCE ONCE IV; Start 07/21/25 at 14:00; Stop 07/21/25 at 14:23; Status DC Metronidazole/ Sodium Chloride 500 mg Q8H IV; Start 07/21/25 at 14:00; Stop 07/21/25 at 13:40; Status DC Fluconazole/ Sodium Chloride 200 mg Q24H IVPB Last administered on 07/27/25at 20:32; Start 07/21/25 at 21:00; Stop 08/20/25 at 20:59 Pharmacy Profile Note 1 each ONCE MISC; Start 07/21/25 at 15:30; Stop 07/21/25 at 15:16; Status DC Thiamine HCl 100 mg/Sodium Chloride 50 ml @ 100 mls/hr Q24H IM; Start 07/21/25 at 15:30; Stop 07/21/25 at 16:25; Status DC Sodium Bicarbonate 100 meq ONCE ONCE IV Last administered on 07/21/25at 16:42; Start 07/21/25 at 16:30; Stop 07/21/25 at 16:31; Status DC Thiamine HCl 100 mg DAILY IVP Last administered on 07/28/25at 09:07; Start 07/22/25 at 21:00; Stop 08/21/25 at 20:59 Diatrizoate Meglum/ Diatrizoate Sod 30 ml STK-MED ONCE .ROUTE; Start 07/23/25 at 15:13; Stop 07/23/25 at 15:13; Status DC Potassium Chloride 100 ml @ 100 mls/hr AD PRN IV; Start 07/24/25 at 08:30; Stop 08/23/25 at 08:29 Potassium Chloride 20 meq AD PRN PO; Start 07/24/25 at 08:30; Stop 08/23/25 at 08:29 Potassium Chloride 20 meq AD PRN PO Last administered on 07/27/25at 20:33; Start 07/24/25 at 08:30; Stop 08/23/25 at 08:29 Hydromorphone HCl 0.5 mg Q4H PRN IVP Last administered on 07/28/25at 13:29; Start 07/24/25 at 10:00; Stop 07/29/25 at 09:59 Spironolactone 25 mg BID PO Last administered on 07/26/25at 08:56; Start 07/25/25 at 21:00; Stop 07/26/25 at 09:01; Status DC Albumin Human 100 ml @ 0 mls/hr ONCE ONCE IV Last administered on 07/25/25at 17:05; Start 07/25/25 at 10:30; Stop 07/25/25 at 10:31; Status DC Albumin Human 100 ml @ 0 mls/hr ONCE IV Last administered on 07/25/25at 13:43; Start 07/25/25 at 12:00; Stop 07/26/25 at 11:59; Status DC Cyclobenzaprine HCl 5 mg TID PO Last administered on 07/26/25at 14:19; Start 07/25/25 at 14:00; Stop 07/26/25 at 14:00; Status DC Furosemide 20 mg DAILY PO Last administered on 07/28/25at 09:07; Start 07/25/25 at 11:00; Stop 08/24/25 at 10:59 Pantoprazole Sodium 40 mg BID IV Last administered on 07/28/25at 09:07; Start 07/26/25 at 21:00; Stop 08/20/25 at 08:59 Psyllium Hydrophilic Mucilloid 1 tbs BID PO Last administered on 07/28/25at 09:07; Start 07/26/25 at 21:00; Stop 08/25/25 at 20:59 Lactobacillus Rhamnosus 1 each DAILY20 PO Last administered on 07/27/25at 19:26; Start 07/26/25 at 20:00; Stop 08/25/25 at 19:59 Iron Sucrose 200 mg ONCE ONCE IV Last administered on 07/26/25at 14:19; Start 07/26/25 at 14:00; Stop 07/26/25 at 14:01; Status DC Lidocaine 1 patch DAILY TP Last administered on 07/28/25at 09:07; Start 07/28/25 at 09:00; Stop 08/27/25 at 08:59 Simethicone 80 mg Q6H6 PO Last administered on 07/28/25at 11:46; Start 07/27/25 at 12:00; Stop 08/26/25 at 11:59 Acetaminophen 500 mg Q6H6 PRN PO; Start 07/27/25 at 16:30; Stop 08/26/25 at 16:29 Lidocaine 1 patch ONCE ONCE TP Last administered on 07/27/25at 19:25; Start 07/27/25 at 19:30; Stop 07/27/25 at 19:31; Status DC Albumin Human 50 ml @ 0 mls/hr AD ONCE IV; Start 07/28/25 at 15:30; Stop 07/28/25 at 15:31; Status DC BENEDICTO OBRIEN Jr. Jul 28, 2025 16:49
[2025-07-28] MEDS: ALBUMIN (HUMAN) 25% 50 ML IV ONE (17:44)
--- NOTE | 2025-07-28 17:51 | PN ---
INFECTIOUS DISEASE PROGRESS NOTE Date of Service: Jul 28, 2025 SUBJECTIVE: This is a 55 year old female patient who was seen at bedside in room 432. Patient is awake, alert and oriented x3. Preliminary peritoneal fluid culture results is growing gram negative rods. We will continue on fluconazole and Zosyn IV and follow up on the final culture results. We will discontinue Dueñas catheter and patient was encouraged to ambulate. Patient's daughter present at bedside PHYSICAL EXAM EYES: Anicteric. Pupils equal and reactive. HENT: No oral thrush seen, moist Oral mucosa. NECK: Supple, no JVD or thyromegaly. LUNGS: Good air entry. No rales, no rhonchi. CARDIOVASCULAR: S1, S2 regular. No murmur heard. ABDOMEN: Soft, non tender, bowel sounds present, no organomegaly. CHRIS drain. Ileostomy creation. CENTRAL NERVOUS SYSTEM: Awake, alert, oriented x 3. SKIN: No rashes, no swelling. LYMPHATICS: No peripheral lymphadenopathy. MUSCULOSKELETAL: No joint swelling, erythema or tenderness. EXTREMITIES: No cyanosis or clubbing. BACK: No deformity, no pressure ulcer. GENITOURINARY: No dysuria or hematuria. Dueñas catheter will be removed today. Vital Sign (Last 12 Hours) 07/28/25 07/28/25 08:00 12:00 Temp 98.2 98.1 Pulse 78 78 Resp 18 18 B/P (MAP) 96/58 99/61 Pulse Ox 94 93 O2 Delivery Room Air Room Air FiO2 21 Intake & Output (last 24hrs) 07/27/25 07/27/25 07/28/25 15:00 23:00 07:00 Output Total 1400 ml 1150 ml Balance -1400 ml -1150 ml LABS: Laboratory: Test 07/28/25 16:31 07/28/25 03:27 Range/Units Whole Blood Glucose 87 70-110 MG/DL White Blood Count 11.8 H 4.8-10.8 K/uL Red Blood Count 3.27 L 4.00-5.50 MIL/uL Hemoglobin 9.7 L 12.0-16.0 g/dL Hematocrit 30.2 L 36-48 % Mean Corpuscular Volume 92.4 79-99 fL Mean Corpuscular Hemoglobin 29.7 27.0-33.0 pg Mean Corpuscular Hemoglobin Concent 32.1 32.0-36.0 g/dL Red Cell Distribution Width 17.6 H 11.0-15.5 % Platelet Count 161 # 130-400 K/uL Mean Platelet Volume 10.2 7.5-10.5 fL Immature Granulocyte % (Auto) 6.4 H 0-1 % Neutrophils (%) (Auto) 72.8 40.0-77.0 % Lymphocytes (%) (Auto) 8.6 L 21.0-51.0 % Monocytes (%) (Auto) 9.7 3.0-13.0 % Eosinophils (%) (Auto) 2.2 0.0-8.0 % Basophils (%) (Auto) 0.3 0.0-5.0 % Neutrophils # (Auto) 8.6 H 1.8-7.7 K/uL Lymphocytes # (Auto) 1.0 1.0-4.8 K/uL Monocytes # (Auto) 1.2 H 0.1-1.0 K/uL Eosinophils # (Auto) 0.26 0.00-0.70 K/uL Basophils # (Auto) 0.04 0.00-0.20 K/uL Absolute Immature Granulocyte (auto 0.76 0-1 K/uL Nucleated Red Blood Cells 0.0 0.0-0.19 % White Cell Morphology Comment See comments Sodium Level 131 L 136-145 mmol/L Potassium Level 3.9 3.5-5.1 mmol/L Chloride Level 101 101-111 mmol/L Carbon Dioxide Level 24 21-32 mmol/L Blood Urea Nitrogen 6 L 7-18 mg/dL Creatinine 0.6 0.5-1.0 mg/dL Glomerular Filtration Rate Calc 105 >90 mL/min Random Glucose 119 H 70-105 mg/dL Total Calcium 7.4 L 8.5-10.1 mg/dL Magnesium Level 2.10 1.80-2.40 mg/dL Total Bilirubin 0.8 0.2-1.0 mg/dL Aspartate Amino Transf (AST/SGOT) 25 10-37 U/L Alanine Aminotransferase (ALT/SGPT) 10 L 12-78 U/L Alkaline Phosphatase 73 50-136 U/L Total Protein 5.1 L 6.0-8.3 g/dL Albumin 1.9 L 3.5-5.0 g/dL ASSESSMENT: Hypoxic respiratory failure requiring oxygen support. Septic shock. Generalized peritonitis. Suspected bowel perforation, s/p diagnostic laparoscopy, abdominal washout, ileostomy creation and CHRIS drain placement on 07/21/2025. Leukocytosis. Acute renal failure. Diabetes mellitus. Recent colovesical fistula repair with sigmoid colon resection and anastomosis on 07/09/2025 PLAN: Continue Zosyn. Continue fluconazole. Continue pain management. Avoid nephrotoxic medications. Continue GI prophylaxis. Continue antidiabetics. Discontinue Dueñas catheter. Patient encouraged to ambulate. We will follow up on the final peritoneal fluid cultures results. This case was reviewed and discussed with my supervising physician Dr. Tripathi and the above assessment and plan was formulated and agreed upon. ATTESTATION BY PHYSICIAN I have seen and examined the patient. I reviewed the documentation, medical decision making, and treatment plan as noted by the mid-level provider above. I agree with the findings and plan of care. AMIE TRIPATHI MD, [facility] Jul 28, 2025 17:51
--- NOTE | 2025-07-28 18:09 | CONS ---
GASTROENTEROLOGY CONSULTATION NOTE Date of Consultation: Jul 28, 2025 Time of Consultation: 18:05 [id number] History of Present Illness: [55 yo female patient with past medical history of cirrhosis liver who was found to have pneumoperitoneum and underwent a diagnostic laparoscopy, abdominal washout, drain placement and diverting loop ileostomy creation. She was found to have bilious peritonitis, 2 mm perforation of the colonic anastomosis. WBC 11.8, hemoglobin 9.7, platelets 161. Sodium 131, BUN six, calcium 7.4, AST, ALT and alkaline phosphatase are normal. Total bilirubin 0.8, total protein 5.1, and albumin 1.9. On exam, patient is awake alert and oriented x3 in no acute distress. Bilateral breath sounds are clear. Abdomen is soft but tender to upper abdomen and distended. Patient stated she has not had a distended abdomen before. Abdomen noted to having more distention on the right upper quadrant. Ileostomy in place with watery succus noted. Review of Systems: CONSTITUTIONAL: No malaise or change in sensation of wellbeing. ENMT: No rhinorrhea, otorrhea, sinus pain, ear ache. CARDIOVASCULAR: No angina, palpitations, orthopnea or paroxysmal dyspnea. RESPIRATORY: No SOB. GASTROINTESTINAL: No abdominal pain, nausea, vomiting, diarrhea, hematemesis, melena or change in the patient's habitual bowel movements consistency/number. GENITOURINARY: No dysuria, hematuria or change in bladder continence. MUSCULOSKELETAL: No new muscle pain or decrease in muscular strength. No new joint swelling, redness or tenderness. SKIN: No new rash. Past Medical History: [Diabetes mellitius type2, liver cirrhosis, esophageal varices Family History] Alzheimer's disease MOTHER, Asthma 19 SON (childhood) Carcinomas FATHER, (throat and colon then simran) Completed stroke MOTHER, (mini) Diabetes mellitus MOTHER, FATHER, Hypertension MOTHER, Coded Allergies: aspirin (Unverified Allergy, Unknown, 07/02/25) bismuth subsalicylate (Unverified Allergy, Unknown, 07/02/25) pork derived (porcine) (Unverified Allergy, Unknown, 07/02/25) Uncoded Allergies: BISMUTH (Allergy, Unknown, 07/02/25) Physical Exam: GEN: Awake, alert, oriented in person, time and place, and in no acute distress. HEENT: No rhinorrhea. Oral mucosa is pink, moist and within normal limits. CHEST: Lung auscultation revealed normal breath sounds bilaterally. CARDIAC:Heart sounds are regular. ABD: Soft, tender to right upper abdomen, and distended. No peritoneal signs on palpation. Normal bowel sounds. Last bm 07/27/25 EXT: No cyanosis or clubbing. No edema. SKIN: Intact. No rashes. NEURO: Alert and oriented to name, place and person.No focal motor deficits. Normal speech. Vital Sign (Last 24 Hours) 07/27/25 07/28/25 19:15 16:00 Temp 98.2 Pulse 77 Resp 18 B/P (MAP) 114/60 Pulse Ox 97 O2 Delivery Room Air O2 Flow Rate 0 FiO2 21 Intake & Output (last 24hrs) 07/27/25 07/27/25 07/28/25 15:00 23:00 07:00 Output Total 1400 ml 1150 ml Balance -1400 ml -1150 ml Laboratory: [ ] Laboratory: Test 07/28/25 16:31 07/28/25 03:27 Range/Units Whole Blood Glucose 87 70-110 MG/DL White Blood Count 11.8 H 4.8-10.8 K/uL Red Blood Count 3.27 L 4.00-5.50 MIL/uL Hemoglobin 9.7 L 12.0-16.0 g/dL Hematocrit 30.2 L 36-48 % Mean Corpuscular Volume 92.4 79-99 fL Mean Corpuscular Hemoglobin 29.7 27.0-33.0 pg Mean Corpuscular Hemoglobin Concent 32.1 32.0-36.0 g/dL Red Cell Distribution Width 17.6 H 11.0-15.5 % Platelet Count 161 # 130-400 K/uL Mean Platelet Volume 10.2 7.5-10.5 fL Immature Granulocyte % (Auto) 6.4 H 0-1 % Neutrophils (%) (Auto) 72.8 40.0-77.0 % Lymphocytes (%) (Auto) 8.6 L 21.0-51.0 % Monocytes (%) (Auto) 9.7 3.0-13.0 % Eosinophils (%) (Auto) 2.2 0.0-8.0 % Basophils (%) (Auto) 0.3 0.0-5.0 % Neutrophils # (Auto) 8.6 H 1.8-7.7 K/uL Lymphocytes # (Auto) 1.0 1.0-4.8 K/uL Monocytes # (Auto) 1.2 H 0.1-1.0 K/uL Eosinophils # (Auto) 0.26 0.00-0.70 K/uL Basophils # (Auto) 0.04 0.00-0.20 K/uL Absolute Immature Granulocyte (auto 0.76 0-1 K/uL Nucleated Red Blood Cells 0.0 0.0-0.19 % White Cell Morphology Comment See comments Sodium Level 131 L 136-145 mmol/L Potassium Level 3.9 3.5-5.1 mmol/L Chloride Level 101 101-111 mmol/L Carbon Dioxide Level 24 21-32 mmol/L Blood Urea Nitrogen 6 L 7-18 mg/dL Creatinine 0.6 0.5-1.0 mg/dL Glomerular Filtration Rate Calc 105 >90 mL/min Random Glucose 119 H 70-105 mg/dL Total Calcium 7.4 L 8.5-10.1 mg/dL Magnesium Level 2.10 1.80-2.40 mg/dL Total Bilirubin 0.8 0.2-1.0 mg/dL Aspartate Amino Transf (AST/SGOT) 25 10-37 U/L Alanine Aminotransferase (ALT/SGPT) 10 L 12-78 U/L Alkaline Phosphatase 73 50-136 U/L Total Protein 5.1 L 6.0-8.3 g/dL Albumin 1.9 L 3.5-5.0 g/dL Current Medications Medications (Trade) Dose Ordered Sig/Gregory Route PRN Reason Start Time Stop Time Status Last Admin Dose Admin Acetaminophen (TYLenol 500MG TAB) 500 mg Q6H6 PRN PO MILD PAIN (1-3) 07/27/25 16:30 08/26/25 16:29 Acetaminophen (TYLenol 650MG SUPPOSITORY) 650 mg Q6H PRN RC MILD PAIN (1-3) 07/21/25 00:00 07/27/25 16:22 DC Albumin Human 100 ml @ 0 mls/hr ONCE IV 07/25/25 12:00 07/26/25 11:59 DC 07/25/25 13:43 100 MLS/HR Cyclobenzaprine HCl (Cyclobenzaprine HCl) 5 mg TID PO 07/25/25 14:00 07/26/25 14:00 DC 07/26/25 14:19 5 MG Fluconazole/ Sodium Chloride (DiFLUCan 200 MG/ NS 100 ML) 200 mg Q24H IVPB 07/21/25 21:00 08/20/25 20:59 07/27/25 20:32 200 MG Furosemide (LASix 20MG TAB) 20 mg DAILY PO 07/25/25 11:00 08/24/25 10:59 07/28/25 09:07 20 MG Hydromorphone HCl (DiLAUDid 0.5MG INJ) 0.5 mg Q4H PRN IVP SEVERE PAIN (7-10) 07/24/25 10:00 07/29/25 09:59 07/28/25 17:46 0.5 MG Insulin Human Regular (humuLIN R 100 UNIT/ML 3ML) INSULIN SLIDING SCAL... ACHS SQ 07/21/25 07:30 08/20/25 07:29 07/22/25 20:40 3 UNIT Lactated Ringer's 1,000 ml @ 75 mls/hr [id number] IV 07/21/25 00:00 07/21/25 13:17 DC 07/21/25 02:57 75 MLS/HR Lactated Ringer's 1,000 ml @ 75 mls/hr [id number] IV 07/21/25 13:30 07/24/25 11:09 DC 07/24/25 09:27 75 MLS/HR Lactobacillus Rhamnosus ([facility]) 1 each DAILY20 PO 07/26/25 20:00 08/25/25 19:59 07/27/25 19:26 1 EACH Lidocaine (Lidoderm Patch 5%) 1 patch DAILY TP 07/28/25 09:00 08/27/25 08:59 07/28/25 09:07 1 PATCH Magnesium Sulfate 50 ml @ 0 mls/hr PROTOCOL PRN IV MAGNESIUM PROTOCOL 07/21/25 07:00 08/20/25 06:59 07/27/25 17:54 25 MLS/HR Metronidazole/ Sodium Chloride (flaGYL) 500 mg Q8H IV 07/21/25 14:00 07/21/25 13:40 DC Morphine Sulfate (morPHINE 2MG SYG) 2 mg Q4H PRN IVP SEVERE PAIN (7-10) 07/21/25 00:30 07/21/25 13:18 DC 07/21/25 04:46 2 MG Morphine Sulfate (morPHINE 4MG SYG) 4 mg Q3H PRN IV MODERATE PAIN (4-6) 07/21/25 13:30 07/26/25 16:29 DC 07/26/25 10:51 4 MG Norepinephrine 250 ml @ 0 mls/hr PROTOCOL IV 07/20/25 23:30 08/19/25 23:29 07/21/25 10:56 18.45 MLS/HR Ondansetron HCl (zoFRAN 4MG INJ) 4 mg Q4H PRN IVP NAUSEA 07/21/25 13:30 08/20/25 13:29 Ondansetron HCl (zoFRAN 4MG INJ) 4 mg Q6H PRN IV NAUSEA/VOMITING 07/21/25 00:00 07/21/25 13:18 DC Pantoprazole Sodium (PROTonix 40MG INJ) 40 mg BID IV 07/26/25 21:00 08/20/25 08:59 07/28/25 09:07 40 MG Pantoprazole Sodium (PROTonix 40MG INJ) 40 mg DAILY IV 07/21/25 09:00 07/26/25 09:31 DC 07/26/25 08:55 40 MG Pharmacy Profile Note (Pharmacy Communication) 1 each ONCE MISC 07/21/25 15:30 07/21/25 15:16 DC Piperacillin Sod/ Tazobactam Sod 50 ml @ 200 mls/hr ONCE STAT IVPB 07/20/25 19:15 07/20/25 19:29 DC 07/20/25 20:32 200 MLS/HR Piperacillin Sod/ Tazobactam Sod (Zosyn 3.375gm+NS 50ml) 3.375 gm Q12H IV 07/21/25 00:00 07/31/25 00:00 07/28/25 11:46 3.375 GM Potassium Chloride 100 ml @ 100 mls/hr AD PRN IV POTASSIUM PROTOCOL 07/24/25 08:30 08/23/25 08:29 Potassium Chloride (K-Dur/Klor-Con 20meq) 20 meq AD PRN PO POTASSIUM PROTOCOL 07/24/25 08:30 08/23/25 08:29 07/27/25 20:33 20 MEQ Potassium Chloride (KCl 10% Elixir 20meq/15ml) 20 meq AD PRN PO POTASSIUM PROTOCOL 07/24/25 08:30 08/23/25 08:29 Psyllium Hydrophilic Mucilloid (Metamucil) 1 tbs BID PO 07/26/25 21:00 08/25/25 20:59 07/28/25 09:07 1 TBS Simethicone (Mylicon) 80 mg Q6H6 PO 07/27/25 12:00 08/26/25 11:59 07/28/25 11:46 80 MG Sodium Bicarbonate 150 meq/Sodium Chloride 1,150 ml @ 0 mls/hr Q0M IVP 07/21/25 14:00 07/26/25 09:31 DC Spironolactone (Aldactone 25mg) 25 mg BID PO 07/25/25 21:00 07/26/25 09:01 DC 07/26/25 08:56 25 MG Thiamine HCl (Vitamin B-1) 100 mg DAILY IVP 07/22/25 21:00 08/21/25 20:59 07/28/25 09:07 100 MG Thiamine HCl 100 mg/Sodium Chloride 50 ml @ 100 mls/hr Q24H IM 07/21/25 15:30 07/21/25 16:25 DC Vancomycin HCl (Vancomycin 1g/ 250ml Kit) 1 gm ONCE STAT IV 07/20/25 21:23 07/20/25 21:26 DC 07/20/25 22:06 1 GM Vasopressin 20 units/Sodium Chloride 100 ml @ 0 mls/hr PROTOCOL IV 07/21/25 00:30 08/20/25 00:29 07/21/25 00:10 9 MLS/HR Diagnostics / Radiology: [COPY/PASTE HERE IF NO REPORTS PLEASE DELETE SECTION] Assessment: [Cirrhosis of liver History of Esophageal Varices Bilious peritonitis Type 2 Diabetes ] Plan: Case discussed with Dr. Adams [ No Gi endoscopic intervention recommended at this time. KUB ordered Recommend trending Hgb and transfuse as needed to goal HGB >7. Will defer to Surgical recommendations Please call with questions, concerns, and change in clinical status. Thank you for this consult. ] NIKKI MUNOZ NP Jul 28, 2025 18:09
[2025-07-29] VITALS: BP 97/53; PULSE 80; RESP 18; TEMP 98.4
[2025-07-29 04:00] VITALS: BP 102/53; PULSE 64; RESP 18; TEMP 98.1
[2025-07-29 05:30] LABS: NUCLEATED RED BLOOD CELLS 0.0 % (0.0-0.19); PLATELET COUNT (AUTO) 179.0 K/uL (130-400); RED BLOOD CELL COUNT(AUTO) 3.04 MIL/uL (4.00-5.50); RED CELL DISTRIBUTION WIDTH 17.6 % (11.0-15.5); WHITE BLOOD COUNT (AUTO) 9.2 K/uL (4.8-10.8)
[2025-07-29 05:53] LABS: CREATININE 0.6 mg/dL (0.5-1.0); GLOMERULAR FILTR. RATE CALC 105.0 mL/min (>90); GLUCOSE,RANDOM 88.0 mg/dL (70-105); SODIUM SERUM 132.0 mmol/L (136-145); UREA NITROGEN, BLOOD 6.0 mg/dL (7-18)
[2025-07-29 08:00] VITALS: BP 98/54; PULSE 76; RESP 18; TEMP 97.9
--- NOTE | 2025-07-29 09:34 | HMCIMG ---
EXAM: CR Abdomen, 1 view. CLINICAL HISTORY: Pain. COMPARISON: None provided. FINDINGS: Dilated small bowel loops are seen in mid abdomen. There is a density in the pelvis which may represent a send drainage catheter. No free air is evident. No abnormal calcification. No aggressive appearing osseous lesion. IMPRESSION: Dilated small bowel loops are seen in mid abdomen. Density in the pelvis which may represent a send drainage catheter. /[place]
--- NOTE | 2025-07-29 09:57 | HMCIMG ---
EXAM: US Abdomen complete CLINICAL HISTORY: Liver cirrhosis TECHNIQUE: Real-time ultrasound of the abdomen (complete) with image documentation. COMPARISON: None provided. FINDINGS: LIVER: Liver measures 12.3 cm with a heterogeneous coarse echotexture. GALLBLADDER: Gallbladder contains stones and sludge. Gallbladder is distended. COMMON BILE DUCT: No dilation. PANCREAS: Pancreas not well-visualized due to overlying bowel gas KIDNEYS: Normal renal contours. No renal mass or calculus. No hydronephrosis. SPLEEN: Normal in size and echogenicity. No mass identified. AORTA: No aneurysm. IVC: Unremarkable as visualized. MISCELLANEOUS: Small amount of abdominal ascites. IMPRESSION: 1. Cirrhotic-appearing liver. 2. Cholelithiasis and biliary sludge with gallbladder distension. 3. Small volume ascites. /[place]
--- NOTE | 2025-07-29 10:08 | PN ---
[facility] PROGRESS NOTE Date of Service: Jul 29, 2025 Time of Service: 09:37 SUBJECTIVE: Ms. Gray is a 55-year-old female that was seen and examined today on 07/20/2025. Patient reports that she came to the emergency department with a chief complaint of abdominal pain. Onset was 07/09/2025. Location is all four quadrants. Duration is constant. Character is described as pressure and " like I have a lot of gas trapped. " there was no alleviating factors. There was no aggravating factors. Patient reports associated abdominal swelling. 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 After the discharge she was taking pain medications and her condition started worsening after few days. She is in constant follow up with Dr Gann. Today in the emergency department WBCs 21.2, left shift neutrophils 85.5%, BUN 26, creatinine 3.1, GFR 17, lactic acid 8.0, no urinalysis has been collected or sent to lab, CT of abdomen and pelvis showed of free air in the abdomen which could be a suspected bowel perforation versus postsurgical changes, moderate ascites, fissure post surgical changes. Chest x-ray shows right pleural effusion. Additionally patient had a heart rate of 125, respirations 26, together with leukocytosis and lactic acidosis patient met clinical sepsis criteria additionally patient's blood pressure dropped to 85/50 mmHg requiring vasopressor support therefore meeting criteria for septic shock. Patient will be admitted to the intensive care unit. Emergency room physician spoke with patient's surgeon, Dr. Gann who requested patient be admitted under hospitalist service and she will follow this case along. 07/21/25 Patient was evaluated at the bedside. She was accompanied by her daughter. She is oriented to the time, place and person. She complained of abdominal pain in all the quadrants. She hasn't had bowel movement since Saturday and also is unable to pass flatus at this time. She has guarding, rigidity and tenderness all over the abdomen, showing the signs of peritonitis. She was seen by Dr Gann this mo rning and is planned to be taken to OR this afternoon. Dueñas catheter is in place, as she wasn't able to pass the urine. There is no fever, chills and any other signs of infection. 07/22/25 Patient was evaluated at the bedside. She was accompanied by her daughter. She is oriented to the time, place and person. She underwent Diagnostic laparoscopy, abdominal washout, drain placement and diverting loop ileostomy creation, The procedure revealed Bilious peritonitis, 2 mm perforation of the colonic anastomosis. She is hemodynamically stable with Blood pressure of 110/73 and HR of 83. Currently she complains of abdominal pain which is getting better than yesterday, its 3-4/10 intensity. There is no rigidity. She is anxious about the outcomes and had discussion regarding her current clinical status and lab parameters. There is no fever, chills and any other signs of infection. 07/23/25 Patient was evaluated at the bedside. She was accompanied by her daughter. She is oriented to the time, place and person. She status post diagnostic laparoscopy, abdominal washout, drain placement and diverting loop ileostomy creation. Currently she complains of abdominal pain which is 5/10 intensity. She also complaints of mild lower back pain There is no fever, chills and any other signs of infection. She has CHRIS drain in-situ with clear fluid along with colostomy bag. She is currently tolerating clear liquid diet. 07/24/2025 Patient is seen and examined at the bedside. Vitals blood pressure ranging in 100s/50s, pulse rate 50s, SpO2 greater than 95% on room air. She mentions about experiencing pressure-like discomfort on the right side of the abdomen and pain when she tries to eat. No acute events last night. She denies fever, chills, nausea, vomiting, chest pain. CHRIS output approximately 100cc/hr, serosanguineous fluid. Ileostomy bag in place. She is tolerating clear liquid diet without any nausea/vomiting. Labs hemoglobin 9.8, BUN 38, creatinine improved from 1.6-1.1. 07/25/2025 Patient is seen and examined at the bedside. She complains of abdominal pain which is 7/10 in intensity. No acute events last night. She denies fever, chills, nausea, vomiting, chest pain. CHRIS output approximately 100cc/hr, serosanguineous fluid. Ileostomy bag in place. The patient has been started on spironolactone 25mg BID and Lasix 20 mg once daily. There is high output from CHRIS but it is clear serous, most likely related to her ascites from her history of liver cirrhosis. She is tolerating clear liquid diet without any nausea/vomiting. 07/26/2025 Patient is seen and examined at the bedside. She complains of abdominal pain which remains constant. No acute events last night. She denies fever, chills, nausea, vomiting, chest pain. Patient is status post with a CHRIS drain. The drain has been collecting the serosanguineous fluid secondary to ascites. She has been tolerating liquid diet and her diet has been advanced to soft diet. She still nielsen s bloating for which probiotics and fibers has been recommended. Hemoglobin has gradually trended down to 9.2 and was given IV Venofer. Patient to get up and ambulate and work with physical therapy. 07/27/2025 Patient is seen and examined at the bedside. She complains of abdominal pain which is 6/10 in intensity. No acute events last night. She denies fever, chills, nausea, vomiting, chest pain. Patient is unable to tolerate the soft diet, hence she is currently receiving the liquid diets. The CHRIS drain output is still high and there was small amount of drainage observed in the right ileostomy. 07/28/2025 Patient is seen and examined at the bedside. She complains of abdominal pain which is 9/10 in intensity. No acute events last night. She denies fever, chills, nausea, vomiting, chest pain. Patient reported pain after eating but no nausea or vomiting. WBC is gradually trending up from 8.3-7.3-11.1-11.8. She had lidocaine patch placed this morning. She was started on simethicone 80 mg yesterday. Pertinent she is currently receiving Dilaudid 0.5 mg. Abdominal ultrasound has been ordered for further assessment. 07/29/2025 Patient is seen and examined at the bedside. She continues to complain of severe abdominal pain, rated 9/10 in intensity, unchanged from prior. She is currently receiving Dilaudid 0.5 mg for pain. She reports discomfort related to Dueñas catheterization. She denies fever, chest pain, nausea or vomiting at this time. No acute events were reported overnight. Blood pressure noted today is noted to be 98/54 mm Hg which is slightly low. Per surgery team, stoma is likely to be removed today. Hemoglobin has trended down from 9.7 g/dl to 9.0 g/dl. REVIEW OF SYSTEMS CONSTITUTIONAL: No fever, chills, or night sweats. NEUROLOGICAL: Denies headache, sensory and motor deficit. CARDIOVASCULAR: Denies any exertional angina, dyspnea on exertion, palpitations. PULMONARY: Denies any shortness of breath, cough, phlegm/sputum, hemoptysis, pleuritic chest pain. GASTROINTESTINAL: Patient complains of diffuse abdominal pain 9/10 intensity. She also has bloating. Denies nausea, vomiting. GENITOURINARY: Denies frequency, urgency, nocturia, hematuria or incontinence. PHYSICAL EXAM GENERAL APPEARANCE: The patient is alert, awake and oriented and bedbound. NEUROLOGICAL: No sensory and motor deficits. CHEST: Normal chest expansion. LUNGS: Normal Vesicular breath sound. Absence of any rales, rhonchi or any wheezing. CARDIOVASCULAR: Regular. S1 and S2 normal. No appreciable rubs, murmurs or gallops. ABDOMEN: Abdomen is soft and slightly tender. CHRIS drain is placed. Ileostomy creation. Absence of guarding, rigidity and rebound tenderness. GENITOURINARY: No suprapubic tenderness. No costovertebral angle tenderness. Vital Signs (last 8hr) Date Time Temp Pulse Resp B/P (MAP) Pulse Ox O2 Delivery O2 Flow Rate FiO2 07/29/25 08:00 97.9 76 18 98/54 98 Room Air 21 07/29/25 04:00 98.1 64 18 102/53 98 Room Air LABS: Laboratory: Test 07/29/25 05:25 07/29/25 05:07 07/28/25 03:27 Range/Units Whole Blood Glucose 89 70-110 MG/DL White Blood Count 9.2 4.8-10.8 K/uL Red Blood Count 3.04 L 4.00-5.50 MIL/uL Hemoglobin 9.0 L 12.0-16.0 g/dL Hematocrit 27.6 L 36-48 % Mean Corpuscular Volume 90.8 79-99 fL Mean Corpuscular Hemoglobin 29.6 27.0-33.0 pg Mean Corpuscular Hemoglobin Concent 32.6 32.0-36.0 g/dL Red Cell Distribution Width 17.6 H 11.0-15.5 % Platelet Count 179 130-400 K/uL Mean Platelet Volume 10.3 7.5-10.5 fL Nucleated Red Blood Cells 0.0 0.0-0.19 % Sodium Level 132 L 136-145 mmol/L Potassium Level 3.9 3.5-5.1 mmol/L Chloride Level 105 101-111 mmol/L Carbon Dioxide Level 20 L 21-32 mmol/L Blood Urea Nitrogen 6 L 7-18 mg/dL Creatinine 0.6 0.5-1.0 mg/dL Glomerular Filtration Rate Calc 105 >90 mL/min Random Glucose 88 70-105 mg/dL Total Calcium 7.8 L 8.5-10.1 mg/dL Immature Granulocyte % (Auto) 6.4 H 0-1 % Neutrophils (%) (Auto) 72.8 40.0-77.0 % Lymphocytes (%) (Auto) 8.6 L 21.0-51.0 % Monocytes (%) (Auto) 9.7 3.0-13.0 % Eosinophils (%) (Auto) 2.2 0.0-8.0 % Basophils (%) (Auto) 0.3 0.0-5.0 % Neutrophils # (Auto) 8.6 H 1.8-7.7 K/uL Lymphocytes # (Auto) 1.0 1.0-4.8 K/uL Monocytes # (Auto) 1.2 H 0.1-1.0 K/uL Eosinophils # (Auto) 0.26 0.00-0.70 K/uL Basophils # (Auto) 0.04 0.00-0.20 K/uL Absolute Immature Granulocyte (auto 0.76 0-1 K/uL White Cell Morphology Comment See comments Magnesium Level 2.10 1.80-2.40 mg/dL Total Bilirubin 0.8 0.2-1.0 mg/dL Aspartate Amino Transf (AST/SGOT) 25 10-37 U/L Alanine Aminotransferase (ALT/SGPT) 10 L 12-78 U/L Alkaline Phosphatase 73 50-136 U/L Total Protein 5.1 L 6.0-8.3 g/dL Albumin 1.9 L 3.5-5.0 g/dL Current Medications Medications (Trade) Dose Ordered Sig/Gregory Route PRN Reason Start Time Stop Time Status Last Admin Dose Admin Acetaminophen (TYLenol 500MG TAB) 500 mg Q6H6 PRN PO MILD PAIN (1-3) 07/27/25 16:30 08/26/25 16:29 Acetaminophen (TYLenol 650MG SUPPOSITORY) 650 mg Q6H PRN RC MILD PAIN (1-3) 07/21/25 00:00 07/27/25 16:22 DC Albumin Human 100 ml @ 0 mls/hr ONCE IV 07/25/25 12:00 07/26/25 11:59 DC 07/25/25 13:43 100 MLS/HR Cyclobenzaprine HCl (Cyclobenzaprine HCl) 5 mg TID PO 07/25/25 14:00 07/26/25 14:00 DC 07/26/25 14:19 5 MG Fluconazole/ Sodium Chloride (DiFLUCan 200 MG/ NS 100 ML) 200 mg Q24H IVPB 07/21/25 21:00 08/20/25 20:59 07/28/25 20:50 200 MG Furosemide (LASix 20MG TAB) 20 mg DAILY PO 07/25/25 11:00 08/24/25 10:59 07/29/25 08:21 20 MG Hydromorphone HCl (DiLAUDid 0.5MG INJ) 0.5 mg Q4H PRN IVP SEVERE PAIN (7-10) 07/24/25 10:00 07/29/25 09:59 07/29/25 08:22 0.5 MG Insulin Human Regular (humuLIN R 100 UNIT/ML 3ML) INSULIN SLIDING SCAL... ACHS SQ 07/21/25 07:30 08/20/25 07:29 07/22/25 20:40 3 UNIT Lactated Ringer's 1,000 ml @ 75 mls/hr [id number] IV 07/21/25 00:00 07/21/25 13:17 DC 07/21/25 02:57 75 MLS/HR Lactated Ringer's 1,000 ml @ 75 mls/hr [id number] IV 07/21/25 13:30 07/24/25 11:09 DC 07/24/25 09:27 75 MLS/HR Lactobacillus Rhamnosus ([facility] [employer]) 1 each DAILY20 PO 07/26/25 20:00 08/25/25 19:59 07/28/25 20:50 1 EACH Lidocaine (Lidoderm Patch 5%) 1 patch DAILY TP 07/28/25 09:00 08/27/25 08:59 07/29/25 08:21 1 PATCH Magnesium Sulfate 50 ml @ 0 mls/hr PROTOCOL PRN IV MAGNESIUM PROTOCOL 07/21/25 07:00 08/20/25 06:59 07/27/25 17:54 25 MLS/HR Metronidazole/ Sodium Chloride (flaGYL) 500 mg Q8H IV 07/21/25 14:00 07/21/25 13:40 DC Morphine Sulfate (morPHINE 2MG SYG) 2 mg Q4H PRN IVP SEVERE PAIN (7-10) 07/21/25 00:30 07/21/25 13:18 DC 07/21/25 04:46 2 MG Morphine Sulfate (morPHINE 4MG SYG) 4 mg Q3H PRN IV MODERATE PAIN (4-6) 07/21/25 13:30 07/26/25 16:29 DC 07/26/25 10:51 4 MG Norepinephrine 250 ml @ 0 mls/hr PROTOCOL IV 07/20/25 23:30 08/19/25 23:29 07/21/25 10:56 18.45 MLS/HR Ondansetron HCl (zoFRAN 4MG INJ) 4 mg Q4H PRN IVP NAUSEA 07/21/25 13:30 08/20/25 13:29 Ondansetron HCl (zoFRAN 4MG INJ) 4 mg Q6H PRN IV NAUSEA/VOMITING 07/21/25 00:00 07/21/25 13:18 DC Pantoprazole Sodium (PROTonix 40MG INJ) 40 mg BID IV 07/26/25 21:00 08/20/25 08:59 07/29/25 08:21 40 MG Pantoprazole Sodium (PROTonix 40MG INJ) 40 mg DAILY IV 07/21/25 09:00 07/26/25 09:31 DC 07/26/25 08:55 40 MG Pharmacy Profile Note (Pharmacy Communication) 1 each ONCE MISC 07/21/25 15:30 07/21/25 15:16 DC Piperacillin Sod/ Tazobactam Sod 50 ml @ 200 mls/hr ONCE STAT IVPB 07/20/25 19:15 07/20/25 19:29 DC 07/20/25 20:32 200 MLS/HR Piperacillin Sod/ Tazobactam Sod (Zosyn 3.375gm+NS 50ml) 3.375 gm Q12H IV 07/21/25 00:00 07/31/25 00:00 07/28/25 23:55 3.375 GM Potassium Chloride 100 ml @ 100 mls/hr AD PRN IV POTASSIUM PROTOCOL 07/24/25 08:30 08/23/25 08:29 Potassium Chloride (K-Dur/Klor-Con 20meq) 20 meq AD PRN PO POTASSIUM PROTOCOL 07/24/25 08:30 08/23/25 08:29 07/27/25 20:33 20 MEQ Potassium Chloride (KCl 10% Elixir 20meq/15ml) 20 meq AD PRN PO POTASSIUM PROTOCOL 07/24/25 08:30 08/23/25 08:29 Psyllium Hydrophilic Mucilloid (Metamucil) 1 tbs BID PO 07/26/25 21:00 08/25/25 20:59 07/29/25 08:21 1 TBS Simethicone (Mylicon) 80 mg Q6H6 PO 07/27/25 12:00 08/26/25 11:59 07/29/25 06:17 80 MG Sodium Bicarbonate 150 meq/Sodium Chloride 1,150 ml @ 0 mls/hr Q0M IVP 07/21/25 14:00 07/26/25 09:31 DC Spironolactone (Aldactone 25mg) 25 mg BID PO 07/25/25 21:00 07/26/25 09:01 DC 07/26/25 08:56 25 MG Thiamine HCl (Vitamin B-1) 100 mg DAILY IVP 07/22/25 21:00 08/21/25 20:59 07/29/25 08:21 100 MG Thiamine HCl 100 mg/Sodium Chloride 50 ml @ 100 mls/hr Q24H IM 07/21/25 15:30 07/21/25 16:25 DC Vancomycin HCl (Vancomycin 1g/ 250ml Kit) 1 gm ONCE STAT IV 07/20/25 21:23 07/20/25 21:26 DC 07/20/25 22:06 1 GM Vasopressin 20 units/Sodium Chloride 100 ml @ 0 mls/hr PROTOCOL IV 07/21/25 00:30 08/20/25 00:29 07/21/25 00:10 9 MLS/HR DIAGNOSTICS / RADIOLOGY: [place] [address] [place] [id number] IMAGING REPORT Signed PATIENT: DALLAS BUCHANAN MR#: [id number] : 1970 SEX: F AGE: 55 LOCATION: 4AH ORDER 18 STATUS: ADM IN REPORT#: [id number] SERVICE 15 REASON: Liver cirrhosis ORDERING PHYSICIAN: LISET DOUGLAS MD PROCEDURE: ABDOMEN - US ABDOMINAL COMPLETE EXAM: US Abdomen complete CLINICAL HISTORY: Liver cirrhosis TECHNIQUE: Real-time ultrasound of the abdomen (complete) with image documentation. COMPARISON: None provided. FINDINGS: LIVER: Liver measures 12.3 cm with a heterogeneous coarse echotexture. GALLBLADDER: Gallbladder contains stones and sludge. Gallbladder is distended. COMMON BILE DUCT: No dilation. PANCREAS: Pancreas not well-visualized due to overlying bowel gas KIDNEYS: Normal renal contours. No renal mass or calculus. No hydronephrosis. SPLEEN: Normal in size and echogenicity. No mass identified. AORTA: No aneurysm. IVC: Unremarkable as visualized. MISCELLANEOUS: Small amount of abdominal ascites. IMPRESSION: 1. Cirrhotic-appearing liver. 2. Cholelithiasis and biliary sludge with gallbladder distension. 3. Small volume ascites. /[place] DICTATED BY: CYNTHIA JULIAN MD DATE: 07/29/251055 ELECTRONICALLY SIGNED BY: CYNTHIA JULIAN MD DATE: 07/29/251055 [place] [address] IMAGING REPORT Signed PATIENT: DALLAS BUCHANAN MR#: [id number] : 1970 SEX: F AGE: 55 LOCATION: 4AH ORDER 10 STATUS: ADM IN REPORT#: [id number] SERVICE 09 REASON: ABD PAIN ORDERING PHYSICIAN: NIKKI MUNOZ NP PROCEDURE: ABD 1VW - ABD 1VW EXAM: CR Abdomen, 1 view. CLINICAL HISTORY: Pain. COMPARISON: None provided. FINDINGS: Dilated small bowel loops are seen in mid abdomen. There is a density in the pelvis which may represent a send drainage catheter. No free air is evident. No abnormal calcification. No aggressive appearing osseous lesion. IMPRESSION: Dilated small bowel loops are seen in mid abdomen. Density in the pelvis which may represent a send drainage catheter. /[place] DICTATED BY: TOBI LEAHY MD DATE: 07/29/25 1033 ELECTRONICALLY SIGNED BY: TOBI LEAHY MD DATE: 07/29/25 1033 ASSESSMENT: Suspected Bowel Perforation POA Bacterial peritonitis Cholelithiasis Small Bowel Obstruction, Suspected Bilious peritonitis s/p Diagnostic laparoscopy, abdominal washout, drain placement and diverting loop ileostomy creation Iron Deficiency anemia Diabetes Mellitus Type 2 POA Acute Kidney Injury POA Septic Shock POA Cirrhosis of liver POA Esophageal Varices Recent Robotic takedown of splenic flexure mobilization, robotic takedown of colovesical fistula with sigmoid colectomy and end-to-end anastomosis surgery PLAN: Bilious peritonitis status post Diagnostic laparoscopy, abdominal washout, drain placement and diverting loop ileostomy creation She is able to tolerate the clear liquid diet -Continue close monitoring of the patient -continue physical therapy -Monitor CHRIS drain output -Continues with high output from CHRIS but it is clear serous, most likely related to her ascites from her history of liver cirrhosis -Continue Lactated Ringer's at 75 ml/hr for volume resuscitation and electrolyte replacement -continue Zosyn [day 8 ] and fluconazole [day 8] -Patient has ongoing abdominal pain, currently awaiting for the clinical symptoms to improve for the discharge in 24-48 hrs. 07/25/25 -Flexeril 5 mg t.i.d. has been started by the Surgery team. -Hemoglobin has gradually trended down to 9.2 and planning to start her on IV Venofer. 07/26/25 -Advance diet to Soft diet -Probiotics and Fibers have been added for bloating. -As per the Surgery: Waiting for the symptoms to resolve and see if she can tolerate the advanced diet for proper discharge timeline. -Protonix IV increased to twice daily. * Patient could not tolerate soft diet, currently receiving liquid diet only. * Her WBC has trended up (11.3), we will closely monitor the patient * General Surgery team is following up the patient closely. * Patient reported pain after eating but no nausea or vomiting. She had lidocaine patch placed this morning. * Currently receiving Dilaudid 0.5 mg. * Abdominal ultrasound has been ordered for further assessment. * PT to continue ambulating patient * Continue emptying CHRIS drain every 3-4 hours to prevent large volume fluid loss, monitor output. * Albumin 25% as IV, 50ml administered on 07/28/2025. * Started on simethicone 80 mg q.6 per oral. 07/28/25 * Per surgery team, stoma is likely to be removed today. 07/29/25 * Blood pressure noted today is noted to be 98/54 mm Hg which is slightly low. * As per Dr. Adams, from Gastroenterology: No GI endoscopic intervention recommended at this time, we will defer to surgical recommendations. * Patient will be given 2 doses of Albumin 25% as IV today. * Morning Cortisol AM will be ordered to assess low blood pressure. * As per the surgery: Order HIDA scan to evaluate gallbladder and if consistent with cholecystitis patient will need cholecystostomy tube placement. Dueñas dr martino to be removed. 07/29/25 Bacterial Peritonitis * Post Surgical patient with Bacterial peritonitis positive for ESBL * Culture and sensitivity shows susceptibility to Zosyn, Gentamicin and Meropenem. * Likely secondary to post-operative intraabdominal infection with risk of ongoing contamination. * Currently patient is on Zosyn (Day 8) Cholelithiasis * Patient complained of upper abdominal pain * Ultrasound abdomen showed: Cirrhotic-appearing liver * Cholelithiasis and biliary sludge with gallbladder distension and Small volume ascites. * Surgery is on the board and awaiting further recommendations. 07/29/25 Small Bowel Obstruction, Suspected * Patient complaints of abdominal pain which is 9/10 on intensity * Abdominal Xray showed: Dilated small bowel loops are seen in mid abdomen * Perform Serial abdominal exams * Pain management(avoid excess opioids if ileus is suspected) * Evaluate drain, bowel status * Monitor for resolution vs progression of Ileus/obstruction. 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 - CT abdominal pelvis w/contrast done on 07/20/2025 showed Free air in the upper abdomen is seen, suggesting perforated bowel vs post surgical changes. No obstruction. -underwent Diagnostic laparoscopy, abdominal washout, drain placement and diverting loop ileostomy creation for biliary peritonitis Iron Deficiency anemia * Hemoglobin has trended down from 9.7 g/dl to 9.0 g/dl. 07/29/25 * Recommend trending Hgb and transfuse as needed to goal Hgb >7. * Plan to initiate the patient on Venofer, her last dose of Venofer was 200 mg on 07/26/2025 * Iron level is 20L, % saturation 11.9, TIBC 167L, Ferritin 129. 9 Septic Shock -resolved -WBC is gradually trending up from 8.3-7.3-11.1-11.8-9.2. 07/29/25 -Her WBC during the presentation was 21.2 and today its 7.3. 07/26/25 -lactic acid normal at 1.6 yesterday -blood and urine culture results are negative Acute Kidney Injury Resolved -Creatinine improved from 1.6-1.1-0.7-0.6-0.6-0.6-0.6. 07/29/25 -Initial FeNA is 0.1 %, probably secondary to dehydration and NSAIDs overuse. -initial Urine sodium is < 13 and urine creatinine is 132.17. -Avoid nephrotoxic agents, eg. NSAIDS. -Weight patient daily. -Monitor intake and output. Cirrhosis of liver -Patient has a past history of cirrhosis of liver. -Ammonia level was 33 which reduced from 40. 9/. - Liver functions are within normal limits. AST 23, ALT 12 and ALP 108. - Avoid NSAIDs and high dose acetaminophen. -Maintain appropriate volume of the patient. * Patient has been started on Spironolactone 25 mg b.i.d. and Lasix 20 mg once daily. 07/25/25 Supportive measures -Maintain IV fluids, correct electrolytes -Serial abdominal exams -Php Programmer on avoidance of NSAIDS and other related triggers. -Monitor Vitals and perform morning labs regularly Continue GI prophylaxis with Pantop Continue DVT prophylaxis with SCDs, we will avoid heparin due to history of allergies to porcine, we will coordinate with surgery consult on initiation of other anticoagulants ATTESTATION BY PHYSICIAN I have seen and examined the patient. I reviewed the documentation, medical decision making, and treatment plan as noted by the resident provider above. I agree with the findings and plan of care. Miguel Conley MD PREET CARR MD Jul 29, 2025 10:08
[2025-07-29 12:00] VITALS: BP 105/39; PULSE 79; RESP 18; TEMP 98.6
--- NOTE | 2025-07-29 12:09 | PN ---
INFECTIOUS DISEASE PROGRESS NOTE Date of Service: Jul 29, 2025 SUBJECTIVE: This is a 55 year old female patient who was seen at bedside in room 432. Patient is awake, alert and oriented x3. No dyspnea observe. The final culture results from the peritoneal fluid came back positive for ESBL, E coli. We will continue on fluconazole and Zosyn IV. Patient is voiding well after the Dueñas catheter removal. Continues with low albumin level of 1.9. Per nursing report albumin was given last night. Patient needs a high-protein diet. We will obtain dietitian consult for evaluation. We will continue to follow patient's care. PHYSICAL EXAM EYES: Anicteric. Pupils equal and reactive. HENT: No oral thrush seen, moist Oral mucosa. NECK: Supple, no JVD or thyromegaly. LUNGS: Good air entry. No rales, no rhonchi. CARDIOVASCULAR: S1, S2 regular. No murmur heard. ABDOMEN: Soft, non tender, bowel sounds present, no organomegaly. CHRIS drain. Ileostomy creation. CENTRAL NERVOUS SYSTEM: Awake, alert, oriented x 3. SKIN: No rashes, no swelling. LYMPHATICS: No peripheral lymphadenopathy. MUSCULOSKELETAL: No joint swelling, erythema or tenderness. EXTREMITIES: No cyanosis or clubbing. BACK: No deformity, no pressure ulcer. GENITOURINARY: No dysuria or hematuria. Vital Sign (Last 12 Hours) 07/29/25 07/29/25 04:00 08:00 Temp 98.1 97.9 Pulse 64 76 Resp 18 18 B/P (MAP) 102/53 98/54 Pulse Ox 98 98 O2 Delivery Room Air Room Air FiO2 21 Intake & Output (last 24hrs) 07/28/25 07/28/25 07/29/25 15:00 23:00 07:00 Intake Total 150.0 ml Output Total 1200 ml 900 ml Balance -1200 ml -750.0 ml LABS: Laboratory: Test 07/29/25 10:54 07/29/25 05:07 07/28/25 03:27 Range/Units Whole Blood Glucose 112 H 70-110 MG/DL Bedside Glucose Comment Notified Nurse White Blood Count 9.2 4.8-10.8 K/uL Red Blood Count 3.04 L 4.00-5.50 MIL/uL Hemoglobin 9.0 L 12.0-16.0 g/dL Hematocrit 27.6 L 36-48 % Mean Corpuscular Volume 90.8 79-99 fL Mean Corpuscular Hemoglobin 29.6 27.0-33.0 pg Mean Corpuscular Hemoglobin Concent 32.6 32.0-36.0 g/dL Red Cell Distribution Width 17.6 H 11.0-15.5 % Platelet Count 179 130-400 K/uL Mean Platelet Volume 10.3 7.5-10.5 fL Nucleated Red Blood Cells 0.0 0.0-0.19 % Sodium Level 132 L 136-145 mmol/L Potassium Level 3.9 3.5-5.1 mmol/L Chloride Level 105 101-111 mmol/L Carbon Dioxide Level 20 L 21-32 mmol/L Blood Urea Nitrogen 6 L 7-18 mg/dL Creatinine 0.6 0.5-1.0 mg/dL Glomerular Filtration Rate Calc 105 >90 mL/min Random Glucose 88 70-105 mg/dL Total Calcium 7.8 L 8.5-10.1 mg/dL Immature Granulocyte % (Auto) 6.4 H 0-1 % Neutrophils (%) (Auto) 72.8 40.0-77.0 % Lymphocytes (%) (Auto) 8.6 L 21.0-51.0 % Monocytes (%) (Auto) 9.7 3.0-13.0 % Eosinophils (%) (Auto) 2.2 0.0-8.0 % Basophils (%) (Auto) 0.3 0.0-5.0 % Neutrophils # (Auto) 8.6 H 1.8-7.7 K/uL Lymphocytes # (Auto) 1.0 1.0-4.8 K/uL Monocytes # (Auto) 1.2 H 0.1-1.0 K/uL Eosinophils # (Auto) 0.26 0.00-0.70 K/uL Basophils # (Auto) 0.04 0.00-0.20 K/uL Absolute Immature Granulocyte (auto 0.76 0-1 K/uL White Cell Morphology Comment See comments Magnesium Level 2.10 1.80-2.40 mg/dL Total Bilirubin 0.8 0.2-1.0 mg/dL Aspartate Amino Transf (AST/SGOT) 25 10-37 U/L Alanine Aminotransferase (ALT/SGPT) 10 L 12-78 U/L Alkaline Phosphatase 73 50-136 U/L Total Protein 5.1 L 6.0-8.3 g/dL Albumin 1.9 L 3.5-5.0 g/dL ASSESSMENT: Hypoxic respiratory failure requiring oxygen support. Septic shock. Generalized peritonitis with ESBL and E coli infection. Infection with multidrug resistant organism. Hypoalbuminemia. Suspected bowel perforation, s/p diagnostic laparoscopy, abdominal washout, ileostomy creation and CHRIS drain placement on 07/21/2025. Leukocytosis. Acute renal failure. Diabetes mellitus. Recent colovesical fistula repair with sigmoid colon resection and anastomosis on 07/09/2025 PLAN: Continue Zosyn. Continue fluconazole. Continue pain management. Avoid nephrotoxic medications. Continue GI prophylaxis. Continue antidiabetics. Dietitian consult patient needs a high-protein diet. This case was reviewed and discussed with my supervising physician Dr. Tripathi and the above assessment and plan was formulated and agreed upon. ATTESTATION BY PHYSICIAN I have seen and examined the patient. I reviewed the documentation, medical decision making, and treatment plan as noted by the mid-level provider above. I agree with the findings and plan of care. AMIE TRIPATHI MD, [facility] Jul 29, 2025 12:09
[2025-07-29] MEDS: ALBUMIN HUMAN 25% 100 ML IV ONE (14:26)
--- NOTE | 2025-07-29 15:24 | PN ---
This is a 55-year-old female postop day seven for diagnostic laparoscopy with the abdominal washout and drain placement and diverting loop ileostomy creation by Dr. Gann Interval history: This 55-year-old female seen in her room resting Patient reporting discomfort with any oral intake and meals Patient according to nursing requiring around the clock pain medication WBCs 9.2 with a hemoglobin of 9 Stoma bar was going to be removed today but patient requesting to hold off until tomorrow because nursing has just placed new ostomy bag due to high output that popped bag Vitals remained stable Ultrasound of abdomen ordered concerning for cholelithiasis with biliary sludge and gallbladder distention Patient continues Dueñas catheter in place with family reporting very little bleeding Physical exam General: Awake alert and oriented Heart: Regular rate and rhythm} Lungs: [Clear to auscultation no distress Abdomen: Soft Abdomen ostomy bar in place with good color to stoma CHRIS drain with serous output Assessment : This is a 55-year-old female postop day seven for diagnostic laparoscopy with the abdominal washout and drain placement and diverting loop ileostomy creation by Dr. Gann Plan: At this point in time we will order HIDA scan to evaluate gallbladder and if consistent with cholecystitis patient will need cholecystostomy tube placement Dueñas drain to be removed Nursing not to change bag until evaluated tomorrow for ostomy bar removal Continue with current pain management Dr. Gann has been updated on patient's status and evaluate patient's later today Surgical case has been discussed with my supervising physician in the above plan was formulated and agreed upon We appreciate the hospitalist team for us to participate in patient's care. Greater than 45 minutes of time spent patient, reviewing chart, working on documentation Vitals/Labs Vital Signs Date Time Temp Pulse Resp B/P (MAP) Pulse Ox O2 Delivery O2 Flow Rate FiO2 07/29/25 12:00 98.6 79 18 105/39 98 Room Air 07/29/25 08:00 21 07/28/25 20:00 0 Laboratory Tests 07/29/25 05:07 Medications Current Medications Sodium Chloride 1,000 ml @ 0 mls/hr ONCE ONCE IV; Start 07/20/25 at 18:30; Stop 07/20/25 at 18:31; Status DC Piperacillin Sod/ Tazobactam Sod 50 ml @ 200 mls/hr ONCE STAT IVPB Last administered on 07/20/25at 20:32; Start 07/20/25 at 19:15; Stop 07/20/25 at 19:29; Status DC Sodium Chloride 2,109 ml @ 703 mls/hr ONCE ONCE IV Last administered on 07/20/25at 20:28; Start 07/20/25 at 19:30; Stop 07/20/25 at 22:29; Status DC Iohexol 75 ml STK-MED ONCE IV; Start 07/20/25 at 20:31; Stop 07/20/25 at 20:31; Status DC Vancomycin HCl 1 gm ONCE STAT IV Last administered on 07/20/25at 22:06; Start 07/20/25 at 21:23; Stop 07/20/25 at 21:26; Status DC Morphine Sulfate 4 mg ONCE ONCE IVP Last administered on 07/20/25at 23:15; Start 07/20/25 at 23:30; Stop 07/20/25 at 23:31; Status DC Ondansetron HCl 4 mg ONCE ONCE IVP Last administered on 07/20/25at 23:14; Start 07/20/25 at 23:30; Stop 07/20/25 at 23:31; Status DC Norepinephrine 250 ml @ 0 mls/hr PROTOCOL IV Last administered on 07/21/25at 10:56; Start 07/20/25 at 23:30; Stop 08/19/25 at 23:29 Piperacillin Sod/ Tazobactam Sod 3.375 gm Q12H IV Last administered on 07/29/25at 14:25; Start 07/21/25 at 00:00; Stop 07/31/25 at 00:00 Acetaminophen 650 mg Q6H PRN RC; Start 07/21/25 at 00:00; Stop 07/27/25 at 16:22; Status DC Pantoprazole Sodium 40 mg DAILY IV Last administered on 07/26/25at 08:55; Start 07/21/25 at 09:00; Stop 07/26/25 at 09:31; Status DC Ondansetron HCl 4 mg Q6H PRN IV; Start 07/21/25 at 00:00; Stop 07/21/25 at 13:18; Status DC Morphine Sulfate 2 mg Q4H PRN IVP Last administered on 07/21/25at 04:46; Start 07/21/25 at 00:30; Stop 07/21/25 at 13:18; Status DC Lactated Ringer's 1,000 ml @ 75 mls/hr [id number] IV Last administered on 07/21/25at 02:57; Start 07/21/25 at 00:00; Stop 07/21/25 at 13:17; Status DC Insulin Human Regular INSULIN SLIDING SCAL... ACHS SQ Last administered on 07/22/25at 20:40; Start 07/21/25 at 07:30; Stop 08/20/25 at 07:29 Vasopressin 20 units/Sodium Chloride 100 ml @ 0 mls/hr PROTOCOL IV Last administered on 07/21/25at 00:10; Start 07/21/25 at 00:30; Stop 08/20/25 at 00:29 Vasopressin 20 units STK-MED ONCE .ROUTE; Start 07/21/25 at 00:10; Stop 07/21/25 at 00:11; Status DC Magnesium Sulfate 50 ml @ 0 mls/hr PROTOCOL PRN IV Last administered on 07/27/25at 17:54; Start 07/21/25 at 07:00; Stop 08/20/25 at 06:59 Acetaminophen 100 ml @ As Directed STK-MED ONCE .ROUTE; Start 07/21/25 at 09:42; Stop 07/21/25 at 09:42; Status DC Famotidine 20 mg STK-MED ONCE IV; Start 07/21/25 at 09:42; Stop 07/21/25 at 09:42; Status DC Albumin Human 500 ml @ As Directed STK-MED ONCE IV; Start 07/21/25 at 09:45; Stop 07/21/25 at 09:45; Status DC Phenylephrine HCl 10 mg STK-MED ONCE IV; Start 07/21/25 at 09:48; Stop 07/21/25 at 09:48; Status DC Dexamethasone Sodium Phosphate 10 mg STK-MED ONCE .ROUTE; Start 07/21/25 at 09:52; Stop 07/21/25 at 09:52; Status DC Ondansetron HCl 4 mg STK-MED ONCE .ROUTE; Start 07/21/25 at 09:52; Stop 07/21/25 at 09:52; Status DC Lidocaine HCl 100 mg STK-MED ONCE .ROUTE; Start 07/21/25 at 09:52; Stop 07/21/25 at 09:52; Status DC Succinylcholine Chloride 200 mg STK-MED ONCE .ROUTE; Start 07/21/25 at 09:53; Stop 07/21/25 at 09:53; Status DC Glycopyrrolate 1 mg STK-MED ONCE .ROUTE; Start 07/21/25 at 09:53; Stop 07/21/25 at 09:53; Status DC Fentanyl Citrate 100 mcg STK-MED ONCE .ROUTE; Start 07/21/25 at 09:54; Stop 07/21/25 at 09:54; Status DC Propofol 200 mg STK-MED ONCE IV; Start 07/21/25 at 09:54; Stop 07/21/25 at 09:54; Status DC Neostigmine Methylsulfate 10 mg STK-MED ONCE IV; Start 07/21/25 at 09:54; Stop 07/21/25 at 09:54; Status DC Rocuronium [place] 50 mg STK-MED ONCE .ROUTE; Start 07/21/25 at 09:54; Stop 07/21/25 at 09:54; Status DC Ketamine HCl 50 mg STK-MED ONCE .ROUTE; Start 07/21/25 at 09:55; Stop 07/21/25 at 09:56; Status DC Epinephrine HCl 1 mg STK-MED ONCE .ROUTE; Start 07/21/25 at 10:03; Stop 07/21/25 at 10:03; Status DC Midazolam HCl 2 mg STK-MED ONCE .ROUTE; Start 07/21/25 at 10:05; Stop 07/21/25 at 10:05; Status DC Indocyanine Green 25 mg STK-MED ONCE IJ; Start 07/21/25 at 10:49; Stop 07/21/25 at 10:49; Status DC Ephedrine Sulfate 50 mg STK-MED ONCE .ROUTE; Start 07/21/25 at 11:17; Stop 07/21/25 at 11:17; Status DC Bupivacaine HCl 5 mg STK-MED ONCE .ROUTE Last administered on 07/21/25at 12:14; Start 07/21/25 at 11:49; Stop 07/21/25 at 11:49; Status DC Sodium Bicarbonate 200 ml @ As Directed STK-MED ONCE .ROUTE; Start 07/21/25 at 12:19; Stop 07/21/25 at 12:19; Status DC Fentanyl Citrate 100 mcg STK-MED ONCE .ROUTE; Start 07/21/25 at 12:23; Stop 07/21/25 at 12:23; Status DC Phytonadione 10 mg STK-MED ONCE .ROUTE; Start 07/21/25 at 13:05; Stop 07/21/25 at 13:05; Status DC Lactated Ringer's 1,000 ml @ 75 mls/hr [id number] IV Last administered on 07/24/25at 09:27; Start 07/21/25 at 13:30; Stop 07/24/25 at 11:09; Status DC Morphine Sulfate 4 mg Q3H PRN IV Last administered on 07/26/25at 10:51; Start 07/21/25 at 13:30; Stop 07/26/25 at 16:29; Status DC Ondansetron HCl 4 mg Q4H PRN IVP; Start 07/21/25 at 13:30; Stop 08/20/25 at 13:29 Fentanyl Citrate 100 mcg STK-MED ONCE .ROUTE; Start 07/21/25 at 13:26; Stop 07/21/25 at 13:26; Status DC Sodium Bicarbonate 150 meq/Sodium Chloride 1,150 ml @ 0 mls/hr Q0M IVP; Start 07/21/25 at 14:00; Stop 07/26/25 at 09:31; Status DC Sodium Bicarbonate 100 meq ONCE ONCE IV; Start 07/21/25 at 14:00; Stop 07/21/25 at 14:23; Status DC Metronidazole/ Sodium Chloride 500 mg Q8H IV; Start 07/21/25 at 14:00; Stop 07/21/25 at 13:40; Status DC Fluconazole/ Sodium Chloride 200 mg Q24H IVPB Last administered on 07/28/25at 20:50; Start 07/21/25 at 21:00; Stop 08/20/25 at 20:59 Pharmacy Profile Note 1 each ONCE MISC; Start 07/21/25 at 15:30; Stop 07/21/25 at 15:16; Status DC Thiamine HCl 100 mg/Sodium Chloride 50 ml @ 100 mls/hr Q24H IM; Start 07/21/25 at 15:30; Stop 07/21/25 at 16:25; Status DC Sodium Bicarbonate 100 meq ONCE ONCE IV Last administered on 07/21/25at 16:42; Start 07/21/25 at 16:30; Stop 07/21/25 at 16:31; Status DC Thiamine HCl 100 mg DAILY IVP Last administered on 07/29/25at 08:21; Start 07/22/25 at 21:00; Stop 08/21/25 at 20:59 Diatrizoate Meglum/ Diatrizoate Sod 30 ml STK-MED ONCE .ROUTE; Start 07/23/25 at 15:13; Stop 07/23/25 at 15:13; Status DC Potassium Chloride 100 ml @ 100 mls/hr AD PRN IV; Start 07/24/25 at 08:30; Stop 08/23/25 at 08:29 Potassium Chloride 20 meq AD PRN PO; Start 07/24/25 at 08:30; Stop 08/23/25 at 08:29 Potassium Chloride 20 meq AD PRN PO Last administered on 07/27/25at 20:33; Start 07/24/25 at 08:30; Stop 08/23/25 at 08:29 Hydromorphone HCl 0.5 mg Q4H PRN IVP Last administered on 07/29/25at 08:22; Start 07/24/25 at 10:00; Stop 07/29/25 at 09:59; Status DC Spironolactone 25 mg BID PO Last administered on 07/26/25at 08:56; Start 07/25/25 at 21:00; Stop 07/26/25 at 09:01; Status DC Albumin Human 100 ml @ 0 mls/hr ONCE ONCE IV Last administered on 07/25/25at 17:05; Start 07/25/25 at 10:30; Stop 07/25/25 at 10:31; Status DC Albumin Human 100 ml @ 0 mls/hr ONCE IV Last administered on 07/25/25at 13:43; Start 07/25/25 at 12:00; Stop 07/26/25 at 11:59; Status DC Cyclobenzaprine HCl 5 mg TID PO Last administered on 07/26/25at 14:19; Start 07/25/25 at 14:00; Stop 07/26/25 at 14:00; Status DC Furosemide 20 mg DAILY PO Last administered on 07/29/25at 08:21; Start 07/25/25 at 11:00; Stop 08/24/25 at 10:59 Pantoprazole Sodium 40 mg BID IV Last administered on 07/29/25at 08:21; Start 07/26/25 at 21:00; Stop 08/20/25 at 08:59 Psyllium Hydrophilic Mucilloid 1 tbs BID PO Last administered on 07/29/25at 08:21; Start 07/26/25 at 21:00; Stop 08/25/25 at 20:59 Lactobacillus Rhamnosus 1 each DAILY20 PO Last administered on 07/28/25at 20:50; Start 07/26/25 at 20:00; Stop 08/25/25 at 19:59 Iron Sucrose 200 mg ONCE ONCE IV Last administered on 07/26/25at 14:19; Start 07/26/25 at 14:00; Stop 07/26/25 at 14:01; Status DC Lidocaine 1 patch DAILY TP Last administered on 07/29/25at 08:21; Start 07/28/25 at 09:00; Stop 08/27/25 at 08:59 Simethicone 80 mg Q6H6 PO Last administered on 07/29/25at 14:27; Start 07/27/25 at 12:00; Stop 08/26/25 at 11:59 Acetaminophen 500 mg Q6H6 PRN PO; Start 07/27/25 at 16:30; Stop 08/26/25 at 16:29 Lidocaine 1 patch ONCE ONCE TP Last administered on 07/27/25at 19:25; Start 07/27/25 at 19:30; Stop 07/27/25 at 19:31; Status DC Albumin Human 50 ml @ 0 mls/hr AD ONCE IV Last administered on 07/28/25at 17:44; Start 07/28/25 at 15:30; Stop 07/28/25 at 15:31; Status DC Albumin Human 100 ml @ 0 mls/hr AD ONCE IV Last administered on 07/29/25at 14:26; Start 07/29/25 at 12:30; Stop 07/29/25 at 12:31; Status DC Hydromorphone HCl 0.5 mg Q4H PRN IVP Last administered on 07/29/25at 13:53; Start 07/29/25 at 13:30; Stop 08/03/25 at 13:29 Gabapentin 100 mg TID PO Last administered on 07/29/25at 14:25; Start 07/29/25 at 14:00; Stop 08/28/25 at 13:59 BENEDICTO OBRINE Jr. Jul 29, 2025 15:24
[2025-07-29 16:00] VITALS: BP 106/58; PULSE 82; RESP 18; TEMP 98.3
[2025-07-29 16:30] LABS: ASPARTATE AMINOTRANSFERASE 23.0 U/L (10-37); TOTAL PROTEIN, SERUM 5.6 g/dL (6.0-8.3)
--- NOTE | 2025-07-29 18:39 | NUR ---
SUNG CATHETER DISCONTINUED AT THIS TIME WITHOUT DIFFICULTY.
[2025-07-29] MEDS: CLOTRIMAZOLE 30 GM CREAM.GM. TP SCH (19:37)
[2025-07-29 20:00] VITALS: BP 108/59; PULSE 83; RESP 20; TEMP 99.4
[2025-07-29] MEDS: SUCRALFATE 1 GM/10 ML PO SCH (20:28)
[2025-07-30] VITALS: BP 102/56; PULSE 85; RESP 18; TEMP 98.7
[2025-07-30 04:00] VITALS: BP 99/61; PULSE 84; RESP 20; TEMP 98.3
[2025-07-30 04:00] LABS: NUCLEATED RED BLOOD CELLS 0.0 % (0.0-0.19); PLATELET COUNT (AUTO) 206.0 K/uL (130-400); RED BLOOD CELL COUNT(AUTO) 2.92 MIL/uL (4.00-5.50); RED CELL DISTRIBUTION WIDTH 17.5 % (11.0-15.5); WHITE BLOOD COUNT (AUTO) 9.2 K/uL (4.8-10.8)
[2025-07-30 04:10] LABS: ASPARTATE AMINOTRANSFERASE 22.0 U/L (10-37); CREATININE 0.6 mg/dL (0.5-1.0); GLOMERULAR FILTR. RATE CALC 105.0 mL/min (>90); GLUCOSE,RANDOM 107.0 mg/dL (70-105); SODIUM SERUM 133.0 mmol/L (136-145); TOTAL PROTEIN, SERUM 5.6 g/dL (6.0-8.3); UREA NITROGEN, BLOOD 4.0 mg/dL (7-18)
[2025-07-30 08:00] VITALS: BP 106/64; PULSE 81; RESP 17; TEMP 98.6; O2SAT 100
--- NOTE | 2025-07-30 12:57 | PN ---
NEPHROLOGY NOTE SUBJECTIVE: This patient has multiple problems including renal failure, anemia in a patient who recently had diverting colostomy, abdominal washout, and laparoscopic diagnosis with no fever or chills. The patient is being considered for HIDA scan. No other associated findings. Creatinine is stable. Electrolytes have been deranged. Anemia is present. PHYSICAL EXAMINATION: GENERAL: Pale, no other distress or deformities lying in bed. VITAL SIGNS: Blood pressure is 105/39. Pulse is 79. Respiratory rate is 18. Afebrile. HEENT: Head is atraumatic, normocephalic. Pupils are round and reactive to light. Sclerae are anicteric. Conjunctivae not pale. Oral mucosa is not dry. NECK: Supple, no masses or bruits. Thyroid is palpable. Neck has no bruits. LUNGS: Shows equal thoracic percussion, note being resonant in all areas. CARDIAC: Regular rhythm. No rub. No S3 or S4. No parasternal heave. ABDOMEN: Tenderness. Negative bowel sounds. LABORATORY DATA: Labs have been reviewed, old records have been reviewed. Hemoglobin is low 9. The patient's sodium has been low, creatinine for 0.6. PROBLEMS: * Renal dysfunction * Electrolyte problems * Underlying abdominal pain * Respiratory failure * Sepsis * Peritonitis. * Extended-spectrum beta-lactamase infections. * Suspected bowel perforation, status post diagnostic laparoscopy. * Ileostomy * Suspected cholecystitis. * Diabetes. * Recent colovesicular fistula repair. PLAN: Continue with antibiotic. Continue monitoring. Follow up on renal function. IV Dilaudid for muscle pain 0.56. Follow-up on renal function, electrolytes, and anemia seen several times. I have discussed with other team physicians. TID: [id number] RECEIPT: [id number]
--- NOTE | 2025-07-30 13:01 | PN ---
NEPHROLOGY PROGRESS NOTE Date/Time Patient Seen: Jul 30, 2025 SUBJECTIVE: This is a 55-year-old female with a past medical history of diabetes mellitus type 2, liver cirrhosis, esophageal varices. He presented to the emergency room with chief complain of abdominal pain. CT of the abdomen showed moderate small bowel enteritis with free air in the upper abdomen, suggesting perforated bowel versus post surgical changes. No obs truction. S/p diagnostic laparoscopy, abdominal washout, drain placement and diverting loop ileostomy creation with CHRIS drain 10 [place] on 07/21 Pending HIDA scan to evaluate gallbladder She was noted to have elevated BUN/creatinine We are consulted for renal failure Renal function and electrolytes are stable. Nurse reports high in the ostomy output Pending further surgery recommendations She was seen in the medial floor, in no acute distress No family at the bedside REVIEW OF SYSTEMS: GENERAL: Positive for abdominal pain and nausea NEUROLOGIC: Negative for any blurry vision, blind spots, double vision, facial asymmetry, dysphagia, dysarthria, hemiparesis, hemisensory deficits, vertigo, ataxia. HEENT: Negative for any head trauma, neck trauma, neck stiffness, photophobia, phonophobia, sinusitis, rhinitis. CARDIAC: Negative for any chest pain, dyspnea on exertion, paroxysmal nocturnal dyspnea, peripheral edema. PULMONARY: Negative for any shortness of breath, wheezing, COPD, or TB exposure. GASTROINTESTINAL: Negative for any abdominal pain, nausea, vomiting, bright red blood per rectum, melena. GENITOURINARY: Negative for any dysuria, hematuria, incontinence. INTEGUMENTARY: Negative for any rashes, cuts, insect bites. RHEUMATOLOGIC: Negative for any joint pains, photosensitive rashes, history of vasculitis or kidney problems. HEMATOLOGIC: Negative for any abnormal bruising, frequent infections or bleeding. Vital Signs (last 8hr) Date Time Temp Pulse Resp B/P (MAP) Pulse Ox O2 Delivery O2 Flow Rate FiO2 07/30/25 08:00 98.6 81 17 106/64 100 Room Air PHYSICAL EXAM: GENERAL: Alert and oriented x 3. No acute distress. Well-nourished. EYES: EOMI. Anicteric. HENT: Moist mucous membranes. No scleral icterus. No cervical lymphadenopathy. LUNGS: Clear to auscultation bilaterally. No accessory muscle use. CARDIOVASCULAR: Regular rate and rhythm. No murmur. No JVD. ABDOMEN: Soft, non-tender and non-distended. No palpable masses. EXTREMITIES: No edema. Non-tender SKIN: No rashes or lesions. Warm. NEUROLOGIC: No focal neurological deficits. CN II-XII grossly intact, but not individually tested. PSYCHIATRIC: Cooperative. Appropriate mood and affect. Current Medications Medications (Trade) Dose Ordered Sig/Gregory Route Start Time Stop Time Status Last Admin Dose Admin Albumin Human 100 ml @ 0 mls/hr ONCE IV 07/25/25 12:00 07/26/25 11:59 DC 07/25/25 13:43 100 MLS/HR Cyclobenzaprine HCl (Cyclobenzaprine HCl) 5 mg TID PO 07/25/25 14:00 07/26/25 14:00 DC 07/26/25 14:19 5 MG Fluconazole/ Sodium Chloride (DiFLUCan 200 MG/ NS 100 ML) 200 mg Q24H IVPB 07/21/25 21:00 08/20/25 20:59 07/25/25 20:47 200 MG Furosemide (LASix 20MG TAB) 20 mg DAILY PO 07/25/25 11:00 08/24/25 10:59 07/26/25 08:56 20 MG Insulin Human Regular (humuLIN R 100 UNIT/ML 3ML) INSULIN SLIDING SCAL... ACHS SQ 07/21/25 07:30 08/20/25 07:29 07/22/25 20:40 3 UNIT Lactated Ringer's 1,000 ml @ 75 mls/hr [id number] IV 07/21/25 00:00 07/21/25 13:17 DC 07/21/25 02:57 75 MLS/HR Lactated Ringer's 1,000 ml @ 75 mls/hr [id number] IV 07/21/25 13:30 07/24/25 11:09 DC 07/24/25 09:27 75 MLS/HR Lactobacillus Rhamnosus ([facility] [employer]) 1 each DAILY20 PO 07/26/25 20:00 08/25/25 19:59 Metronidazole/ Sodium Chloride (flaGYL) 500 mg Q8H IV 07/21/25 14:00 07/21/25 13:40 DC Norepinephrine 250 ml @ 0 mls/hr PROTOCOL IV 07/20/25 23:30 08/19/25 23:29 07/21/25 10:56 18.45 MLS/HR Pantoprazole Sodium (PROTonix 40MG INJ) 40 mg BID IV 07/26/25 21:00 08/20/25 08:59 Pantoprazole Sodium (PROTonix 40MG INJ) 40 mg DAILY IV 07/21/25 09:00 07/26/25 09:31 DC 07/26/25 08:55 40 MG Pharmacy Profile Note (Pharmacy Communication) 1 each ONCE MISC 07/21/25 15:30 07/21/25 15:16 DC Piperacillin Sod/ Tazobactam Sod 50 ml @ 200 mls/hr ONCE STAT IVPB 07/20/25 19:15 07/20/25 19:29 DC 07/20/25 20:32 200 MLS/HR Piperacillin Sod/ Tazobactam Sod (Zosyn 3.375gm+NS 50ml) 3.375 gm Q12H IV 07/21/25 00:00 07/31/25 00:00 07/26/25 12:10 3.375 GM Psyllium Hydrophilic Mucilloid (Metamucil) 1 tbs BID PO 07/26/25 21:00 08/25/25 20:59 Sodium Bicarbonate 150 meq/Sodium Chloride 1,150 ml @ 0 mls/hr Q0M IVP 07/21/25 14:00 07/26/25 09:31 DC Spironolactone (Aldactone 25mg) 25 mg BID PO 07/25/25 21:00 07/26/25 09:01 DC 07/26/25 08:56 25 MG Thiamine HCl (Vitamin B-1) 100 mg DAILY IVP 07/22/25 21:00 08/21/25 20:59 07/26/25 08:55 100 MG Thiamine HCl 100 mg/Sodium Chloride 50 ml @ 100 mls/hr Q24H IM 07/21/25 15:30 07/21/25 16:25 DC Vancomycin HCl (Vancomycin 1g/ 250ml Kit) 1 gm ONCE STAT IV 07/20/25 21:23 07/20/25 21:26 DC 07/20/25 22:06 1 GM Vasopressin 20 units/Sodium Chloride 100 ml @ 0 mls/hr PROTOCOL IV 07/21/25 00:30 08/20/25 00:29 07/21/25 00:10 9 MLS/HR LABORATORY: [ ] Hematology Labs: Test 07/30/25 03:34 Range/Units White Blood Count 9.2 4.8-10.8 K/uL Red Blood Count 2.92 L 4.00-5.50 MIL/uL Hemoglobin 8.9 L 12.0-16.0 g/dL Hematocrit 26.7 L 36-48 % Mean Corpuscular Volume 91.4 79-99 fL Mean Corpuscular Hemoglobin 30.5 27.0-33.0 pg Mean Corpuscular Hemoglobin Concent 33.3 32.0-36.0 g/dL Red Cell Distribution Width 17.5 H 11.0-15.5 % Platelet Count 206 130-400 K/uL Mean Platelet Volume 9.8 7.5-10.5 fL Nucleated Red Blood Cells 0.0 0.0-0.19 % Chemistry Labs: Test 07/30/25 07:15 07/30/25 05:32 07/30/25 03:34 07/29/25 16:29 Range/Units Serum Osmolality 274 L 278-305 mOsm/kg Whole Blood Glucose 107 70-110 MG/DL Sodium Level 133 L 136-145 mmol/L Potassium Level 3.5 3.5-5.1 mmol/L Chloride Level 102 101-111 mmol/L Carbon Dioxide Level 24 21-32 mmol/L Blood Urea Nitrogen 4 L 7-18 mg/dL Creatinine 0.6 0.5-1.0 mg/dL Glomerular Filtration Rate Calc 105 >90 mL/min Random Glucose 107 H 70-105 mg/dL Total Calcium 7.9 L 8.5-10.1 mg/dL Phosphorus Level 2.3 L 2.5-4.9 mg/dL Total Bilirubin 0.8 0.2-1.0 mg/dL Aspartate Amino Transf (AST/SGOT) 22 10-37 U/L Alanine Aminotransferase (ALT/SGPT) 11 L 12-78 U/L Alkaline Phosphatase 69 50-136 U/L Total Protein 5.6 L 6.0-8.3 g/dL Albumin 2.3 L 3.5-5.0 g/dL Bedside Glucose Comment Notified Nurse Test 07/29/25 16:10 Range/Units Direct Bilirubin 0.4 H 0.0-0.3 mg/dL DIAGNOSTICS / RADIOLOGY: [place] [address] [address] IMAGING REPORT Signed PATIENT: DALLAS BUCHANAN MR#: [id number] : 1970 SEX: F AGE: 55 LOCATION: 4AH ORDER 10 STATUS: ADM IN REPORT#: [id number] SERVICE 09 REASON: ABD PAIN ORDERING PHYSICIAN: NIKKI MUNOZ NP PROCEDURE: ABD 1VW - ABD 1VW EXAM: CR Abdomen, 1 view. CLINICAL HISTORY: Pain. COMPARISON: None provided. FINDINGS: Dilated small bowel loops are seen in mid abdomen. There is a density in the pelvis which may represent a send drainage catheter. No free air is evident. No abnormal calcification. No aggressive appearing osseous lesion. IMPRESSION: Dilated small bowel loops are seen in mid abdomen. Density in the pelvis which may represent a send drainage catheter. /[facility] DICTATED BY: TOBI LEAHY MD DATE: 07/29/251032 ELECTRONICALLY SIGNED BY: TOBI LEAHY MD DATE: 07/29/251032 PATIENT: DALLAS BUCHANAN MR#: [id number] : 1970 SEX: F AGE: 55 LOCATION: 4AH ORDER 18 STATUS: ADM IN REPORT#: [id number] SERVICE 15 REASON: Liver cirrhosis ORDERING PHYSICIAN: LISET DOUGLAS MD PROCEDURE: ABDOMEN - US ABDOMINAL COMPLETE EXAM: US Abdomen complete CLINICAL HISTORY: Liver cirrhosis TECHNIQUE: Real-time ultrasound of the abdomen (complete) with image documentation. COMPARISON: None provided. FINDINGS: LIVER: Liver measures 12.3 cm with a heterogeneous coarse echotexture. GALLBLADDER: Gallbladder contains stones and sludge. Gallbladder is distended. COMMON BILE DUCT: No dilation. PANCREAS: Pancreas not well-visualized due to overlying bowel gas KIDNEYS: Normal renal contours. No renal mass or calculus. No hydronephrosis. SPLEEN: Normal in size and echogenicity. No mass identified. AORTA: No aneurysm. IVC: Unremarkable as visualized. MISCELLANEOUS: Small amount of abdominal ascites. IMPRESSION: 1. Cirrhotic-appearing liver. 2. Cholelithiasis and biliary sludge with gallbladder distension. 3. Small volume ascites. /[place] DICTATED BY: CYNTHIA JULIAN MD DATE: 07/29/251055 ELECTRONICALLY SIGNED BY: CYNTHIA JULIAN MD DATE: 07/29/251055 PATIENT: DALLAS BUCHANAN MR#: [id number] : 1970 SEX: F AGE: 55 LOCATION: 2BH ORDER STATUS: ADM IN REPORT#: [id number] SERVICE 05 REASON: sob ORDERING PHYSICIAN: PREET BOSTON MD PROCEDURE: CXR1VW - CHEST 1VW CHEST 1VW REASON: sob COMPARISON: Study from 07/21/2025 is available. FINDINGS: Single view of the chest was obtained. Lungs are clear. Heart size is normal. There is no pulmonary vascular congestion. There is a right-sided PIC catheter with tip in superior vena cava. There is a nasogastric tube with the tip in the fundus of the stomach. Mediastinum and bony thorax appear unremarkable. IMPRESSION: 1. No acute cardiopulmonary process 2. The support lines are in satisfactory position.. DICTATED BY: GREER FIORE MD DATE: 07/22/251349 ELECTRONICALLY SIGNED BY: GREER FIORE MD DATE: 07/22/25 135 PATIENT: DALLAS BUCHANAN MR#: [id number] : 1970 SEX: F AGE: 55 LOCATION: 2BH ORDER STATUS: ADM IN REPORT#: [id number] SERVICE REASON: PICC LINE ORDERING PHYSICIAN: HEATHER LEACH APRN PROCEDURE: CXR1VW - CHEST 1VW EXAM: CR Chest, single view. CLINICAL HISTORY: PICC line COMPARISON: Prior same day chest radiograph. FINDINGS: Right-sided PICC catheter with tip in the cavoatrial junction. Subsegmental atelectasis in the right lower lobe. No evidence of pleural effusion or pneumothorax. The cardiomediastinal silhouette is within normal limits. No acute osseous abnormality. IMPRESSION: Right-sided PICC catheter with tip in the cavoatrial junction. Subsegmental atelectasis in the right lower lobe. No evidence of pleural effusion or pneumothorax. Compared to the prior study, there is interval placement of the right-sided PICC line and interval resolution of the subsegmental atelectasis in the left lower lobe. /[facility] DICTATED BY: ELDON MILLER Jr., MD DATE: 07/21/25816 ELECTRONICALLY SIGNED BY: ELDON MILLER Jr., MD DATE: 07/21/25816 PATIENT: DALLAS BUCHANAN MR#: [id number] : 1970 SEX: F AGE: 55 LOCATION: [facility] ORDER 14 STATUS: [facility] REPORT#: [id number] SERVICE 12 REASON: CHEST PAIN/COUGH ORDERING PHYSICIAN: ALHAJI SHINE NP PROCEDURE: CXR1VW - CHEST 1VW EXAM: XR Chest, 1 View. CLINICAL HISTORY: 55 year old female with chest pain and cough. COMPARISON: None provided. FINDINGS: LUNGS: The lungs demonstrate evidence of atelectasis. PLEURAL SPACES: A small right pleural effusion is present. HEART: The heart size is normal. BONES: No acute osseous abnormality. IMPRESSION: 1. Small right pleural effusion and right lung base atelectasis. /[facility] DICTATED BY: EDWIGE LEDESMA MD DATE: 07/20/252046 ELECTRONICALLY SIGNED BY: EDWIGE LEDESMA MD DATE: 07/20/252046 PATIENT: DALLAS BUCHANAN MR#: [id number] : 1970 SEX: F AGE: 55 LOCATION: [facility] ORDER 14 STATUS: REG ER REPORT#: [id number] SERVICE 12 REASON: Abdominal Pain ORDERING PHYSICIAN: ALHAJI SHINE NP PROCEDURE: ABD PEL W - CT ABDOMEN/PELVIS W/CONTRAST ADDENDUM REPORT ADDENDUM: Results were shared by telephone at 23:23 pm on 07-20-2025 and acknowledged by Pt nurse Ms. SHIN BOYKIN. /[facility] EXAM: CT Abdomen and Pelvis with Intravenous Contrast CLINICAL HISTORY: 55-year-old female with abdominal pain. TECHNIQUE: Axial computed tomography images of the abdomen and pelvis with intravenous contrast. Dose reduction technique was used including one or more of the following: automated exposure control, adjustment of mA and kV according to patient size, and/or iterative reconstruction. CONTRAST: Omnipaque 350, 75 mL COMPARISON: None provided. FINDINGS: LUNG BASES: Atelectasis and scarring at the lung bases. LIVER: Unremarkable. GALLBLADDER AND BILE DUCTS: Tiny gallstone seen. PANCREAS: Unremarkable. SPLEEN: Unremarkable. ADRENAL GLANDS: Unremarkable. KIDNEYS, URETERS, AND BLADDER: Dueñas catheter seen in the bladder lumen. No hydronephrosis or nephrolithiasis. No ureteral calculi. STOMACH AND BOWEL: Edema or loops of small bowel suggesting moderate small bowel enteritis. Free air in the upper abdomen is seen, suggesting perforated bowel. No obstruction. APPENDIX: No CT evidence for appendicitis. PERITONEUM: Moderate ascites in the abdomen and pelvis. No free air under the diaphragm. LYMPH NODES: No lymphadenopathy. REPRODUCTIVE: Unremarkable as visualized. VASCULATURE: No aortic aneurysm. ABDOMINAL WALL AND SOFT TISSUES: There is air in the subcutaneous soft tissue seen anteriorly, suggesting recent postsurgical changes; please correlate with surgical history. BONES: No fracture or suspicious osseous abnormality. IMPRESSION: 1. Moderate small bowel enteritis with free air in the upper abdomen, suggesting perforated bowel versus post surgical changes. No obstruction. 2. Moderate ascites in the abdomen and pelvis. 3. Air in the subcutaneous soft tissue anteriorly, suggesting recent postsurgical changes; please correlate with surgical history. /[facility] DICTATED BY: EDWIGE LEDESMA MD DATE: 07/20/252336 ELECTRONICALLY SIGNED BY: DATE: EXAM: CT Abdomen and Pelvis with Intravenous Contrast CLINICAL HISTORY: 55-year-old female with abdominal pain. TECHNIQUE: Axial computed tomography images of the abdomen and pelvis with intravenous contrast. Dose reduction technique was used including one or more of the following: automated exposure control, adjustment of mA and kV according to patient size, and/or iterative reconstruction. CONTRAST: Omnipaque 350, 75 mL COMPARISON: None provided. FINDINGS: LUNG BASES: Atelectasis and scarring at the lung bases. LIVER: Unremarkable. GALLBLADDER AND BILE DUCTS: Tiny gallstone seen. PANCREAS: Unremarkable. SPLEEN: Unremarkable. ADRENAL GLANDS: Unremarkable. KIDNEYS, URETERS, AND BLADDER: Dueñas catheter seen in the bladder lumen. No hydronephrosis or nephrolithiasis. No ureteral calculi. STOMACH AND BOWEL: Edema or loops of small bowel suggesting moderate small bowel enteritis. Free air in the upper abdomen is seen, suggesting perforated bowel. No obstruction. APPENDIX: No CT evidence for appendicitis. PERITONEUM: Moderate ascites in the abdomen and pelvis. No free air under the diaphragm. LYMPH NODES: No lymphadenopathy. REPRODUCTIVE: Unremarkable as visualized. VASCULATURE: No aortic aneurysm. ABDOMINAL WALL AND SOFT TISSUES: There is air in the subcutaneous soft tissue seen anteriorly, suggesting recent postsurgical changes; please correlate with surgical history. BONES: No fracture or suspicious osseous abnormality. IMPRESSION: 1. Moderate small bowel enteritis with free air in the upper abdomen, suggesting perforated bowel versus post surgical changes. No obstruction. 2. Moderate ascites in the abdomen and pelvis. 3. Air in the subcutaneous soft tissue anteriorly, suggesting recent postsurgical changes; please correlate with surgical history. /[place] DICTATED BY: EDWIGE LEDESMA MD DATE: 07/20/252317 ELECTRONICALLY SIGNED BY: EDWIGE LEDESMA MD DATE: 07/20/252317 ASSESSMENT: Acute kidney injury Bilious peritonitis 2 mm perforation of the colonic anastomosis Diabetes Mellitus Type 2 Septic Shock Cirrhosis of liver Oesophageal Varices PLAN: Labs, diagnostic, radiologic exams reviewed and interpreted by myself and supervising physician. We have reviewed external records in detail Pending further surgery recommendations Require close monitoring of renal function and electrolytes Order CBC, CMP, and electrolytes in am Continue with antibiotics BiPAP as necessary, for respiratory distress Monitor blood pressure adjust medication doses as needed Avoid hypotensive episodes May use Dilaudid 0.5 mg IV every 6 hours as needed for severe pain Monitor blood sugars Strict intake, output, and daily weight should be monitored Please renally adjust medications Avoid nephrotoxic and nonsteroidal drugs Avoid contrast if possible Will continue to monitor renal function, anemia, electrolytes Treatment plan discussed with patient Questions were answered We have discussed with the other team physicians in detail about the care plan We will continue to monitor the patient closely ATTESTATION BY PHYSICIAN I have seen and examined the patient. I reviewed the documentation, medical decision making, and treatment plan as noted by the mid-level provider above. I agree with the findings and plan of care. CIELO PORTILLO MD, [facility] Jul 30, 2025 13:01
[2025-07-30 14:19] LABS: % IRON SATURATION 16.3 % (22-44); IRON, SERUM 24.0 mcg/dL (50-170)
--- NOTE | 2025-07-30 15:56 | PN ---
This is a 55-year-old female postop day nine for diagnostic laparoscopy with the abdominal washout and drain placement and diverting loop ileostomy creation by Dr. Gann Interval history: This 55-year-old female seen resting Patient is still reporting upper quadrant discomfort HIDA scan currently pending Ostomy bar removed at bedside Patient continues with high output from CHRIS drain with a appears to be ascites fluid Physical exam General: Awake alert and oriented Heart: Regular rate and rhythm} Lungs: Clear to auscultation no distress Abdomen: [Soft, nontender, nondistended stoma with good color and was functioning properly CHRIS with the ascites fluid Assessment : This is a 55-year-old female postop day nine for diagnostic laparoscopy with the abdominal washout and drain placement and diverting loop ileostomy creation by Dr. Gann Plan: At this point in time we will await HIDA scan findings If consistent with cholecystitis recommendation will be for cholecystostomy tube placement Continue with current pain management Team with diet as tolerated Continue with scheduled removal of the ascites fluid and from CHRIS bulb Dr. Gann to be updated in patient's status and nursing report any further acute events Surgical case has been discussed with my supervising physician in the above plan was formulated and agreed upon We appreciate the hospitalist team for us to participate in patient's care. Greater than 45 minutes of time spent patient, reviewing chart, working on documentation Vitals/Labs Vital Signs Date Time Temp Pulse Resp B/P (MAP) Pulse Ox O2 Delivery O2 Flow Rate FiO2 07/30/25 08:00 98.6 81 17 106/64 100 Room Air 07/29/25 21:22 0 21 Laboratory Tests 07/30/25 03:34 Medications Current Medications Sodium Chloride 1,000 ml @ 0 mls/hr ONCE ONCE IV; Start 07/20/25 at 18:30; Stop 07/20/25 at 18:31; Status DC Piperacillin Sod/ Tazobactam Sod 50 ml @ 200 mls/hr ONCE STAT IVPB Last administered on 07/20/25at 20:32; Start 07/20/25 at 19:15; Stop 07/20/25 at 19:29; Status DC Sodium Chloride 2,109 ml @ 703 mls/hr ONCE ONCE IV Last administered on 07/20/25at 20:28; Start 07/20/25 at 19:30; Stop 07/20/25 at 22:29; Status DC Iohexol 75 ml STK-MED ONCE IV; Start 07/20/25 at 20:31; Stop 07/20/25 at 20:31; Status DC Vancomycin HCl 1 gm ONCE STAT IV Last administered on 07/20/25at 22:06; Start 07/20/25 at 21:23; Stop 07/20/25 at 21:26; Status DC Morphine Sulfate 4 mg ONCE ONCE IVP Last administered on 07/20/25at 23:15; Start 07/20/25 at 23:30; Stop 07/20/25 at 23:31; Status DC Ondansetron HCl 4 mg ONCE ONCE IVP Last administered on 07/20/25at 23:14; Start 07/20/25 at 23:30; Stop 07/20/25 at 23:31; Status DC Norepinephrine 250 ml @ 0 mls/hr PROTOCOL IV Last administered on 07/21/25at 10:56; Start 07/20/25 at 23:30; Stop 08/19/25 at 23:29 Piperacillin Sod/ Tazobactam Sod 3.375 gm Q12H IV Last administered on 07/30/25at 13:57; Start 07/21/25 at 00:00; Stop 07/31/25 at 00:00 Acetaminophen 650 mg Q6H PRN RC; Start 07/21/25 at 00:00; Stop 07/27/25 at 16:22; Status DC Pantoprazole Sodium 40 mg DAILY IV Last administered on 07/26/25at 08:55; Start 07/21/25 at 09:00; Stop 07/26/25 at 09:31; Status DC Ondansetron HCl 4 mg Q6H PRN IV; Start 07/21/25 at 00:00; Stop 07/21/25 at 13:18; Status DC Morphine Sulfate 2 mg Q4H PRN IVP Last administered on 07/21/25at 04:46; Start 07/21/25 at 00:30; Stop 07/21/25 at 13:18; Status DC Lactated Ringer's 1,000 ml @ 75 mls/hr [id number] IV Last administered on 07/21/25at 02:57; Start 07/21/25 at 00:00; Stop 07/21/25 at 13:17; Status DC Insulin Human Regular INSULIN SLIDING SCAL... ACHS SQ Last administered on 07/22/25at 20:40; Start 07/21/25 at 07:30; Stop 08/20/25 at 07:29 Vasopressin 20 units/Sodium Chloride 100 ml @ 0 mls/hr PROTOCOL IV Last administered on 07/21/25at 00:10; Start 07/21/25 at 00:30; Stop 08/20/25 at 00:29 Vasopressin 20 units STK-MED ONCE .ROUTE; Start 07/21/25 at 00:10; Stop 07/21/25 at 00:11; Status DC Magnesium Sulfate 50 ml @ 0 mls/hr PROTOCOL PRN IV Last administered on 07/27/25at 17:54; Start 07/21/25 at 07:00; Stop 08/20/25 at 06:59 Acetaminophen 100 ml @ As Directed STK-MED ONCE .ROUTE; Start 07/21/25 at 09:42; Stop 07/21/25 at 09:42; Status DC Famotidine 20 mg STK-MED ONCE IV; Start 07/21/25 at 09:42; Stop 07/21/25 at 09:42; Status DC Albumin Human 500 ml @ As Directed STK-MED ONCE IV; Start 07/21/25 at 09:45; Stop 07/21/25 at 09:45; Status DC Phenylephrine HCl 10 mg STK-MED ONCE IV; Start 07/21/25 at 09:48; Stop 07/21/25 at 09:48; Status DC Dexamethasone Sodium Phosphate 10 mg STK-MED ONCE .ROUTE; Start 07/21/25 at 09:52; Stop 07/21/25 at 09:52; Status DC Ondansetron HCl 4 mg STK-MED ONCE .ROUTE; Start 07/21/25 at 09:52; Stop 07/21/25 at 09:52; Status DC Lidocaine HCl 100 mg STK-MED ONCE .ROUTE; Start 07/21/25 at 09:52; Stop 07/21/25 at 09:52; Status DC Succinylcholine Chloride 200 mg STK-MED ONCE .ROUTE; Start 07/21/25 at 09:53; Stop 07/21/25 at 09:53; Status DC Glycopyrrolate 1 mg STK-MED ONCE .ROUTE; Start 07/21/25 at 09:53; Stop 07/21/25 at 09:53; Status DC Fentanyl Citrate 100 mcg STK-MED ONCE .ROUTE; Start 07/21/25 at 09:54; Stop 07/21/25 at 09:54; Status DC Propofol 200 mg STK-MED ONCE IV; Start 07/21/25 at 09:54; Stop 07/21/25 at 09:54; Status DC Neostigmine Methylsulfate 10 mg STK-MED ONCE IV; Start 07/21/25 at 09:54; Stop 07/21/25 at 09:54; Status DC Rocuronium [place] 50 mg STK-MED ONCE .ROUTE; Start 07/21/25 at 09:54; Stop 07/21/25 at 09:54; Status DC Ketamine HCl 50 mg STK-MED ONCE .ROUTE; Start 07/21/25 at 09:55; Stop 07/21/25 at 09:56; Status DC Epinephrine HCl 1 mg STK-MED ONCE .ROUTE; Start 07/21/25 at 10:03; Stop 07/21/25 at 10:03; Status DC Midazolam HCl 2 mg STK-MED ONCE .ROUTE; Start 07/21/25 at 10:05; Stop 07/21/25 at 10:05; Status DC Indocyanine Green 25 mg STK-MED ONCE IJ; Start 07/21/25 at 10:49; Stop 07/21/25 at 10:49; Status DC Ephedrine Sulfate 50 mg STK-MED ONCE .ROUTE; Start 07/21/25 at 11:17; Stop 07/21/25 at 11:17; Status DC Bupivacaine HCl 5 mg STK-MED ONCE .ROUTE Last administered on 07/21/25at 12:14; Start 07/21/25 at 11:49; Stop 07/21/25 at 11:49; Status DC Sodium Bicarbonate 200 ml @ As Directed STK-MED ONCE .ROUTE; Start 07/21/25 at 12:19; Stop 07/21/25 at 12:19; Status DC Fentanyl Citrate 100 mcg STK-MED ONCE .ROUTE; Start 07/21/25 at 12:23; Stop 07/21/25 at 12:23; Status DC Phytonadione 10 mg STK-MED ONCE .ROUTE; Start 07/21/25 at 13:05; Stop 07/21/25 at 13:05; Status DC Lactated Ringer's 1,000 ml @ 75 mls/hr [id number] IV Last administered on 07/24/25at 09:27; Start 07/21/25 at 13:30; Stop 07/24/25 at 11:09; Status DC Morphine Sulfate 4 mg Q3H PRN IV Last administered on 07/26/25at 10:51; Start 07/21/25 at 13:30; Stop 07/26/25 at 16:29; Status DC Ondansetron HCl 4 mg Q4H PRN IVP; Start 07/21/25 at 13:30; Stop 08/20/25 at 13:29 Fentanyl Citrate 100 mcg STK-MED ONCE .ROUTE; Start 07/21/25 at 13:26; Stop 07/21/25 at 13:26; Status DC Sodium Bicarbonate 150 meq/Sodium Chloride 1,150 ml @ 0 mls/hr Q0M IVP; Start 07/21/25 at 14:00; Stop 07/26/25 at 09:31; Status DC Sodium Bicarbonate 100 meq ONCE ONCE IV; Start 07/21/25 at 14:00; Stop 07/21/25 at 14:23; Status DC Metronidazole/ Sodium Chloride 500 mg Q8H IV; Start 07/21/25 at 14:00; Stop 07/21/25 at 13:40; Status DC Fluconazole/ Sodium Chloride 200 mg Q24H IVPB Last administered on 07/29/25at 20:28; Start 07/21/25 at 21:00; Stop 08/20/25 at 20:59 Pharmacy Profile Note 1 each ONCE MISC; Start 07/21/25 at 15:30; Stop 07/21/25 at 15:16; Status DC Thiamine HCl 100 mg/Sodium Chloride 50 ml @ 100 mls/hr Q24H IM; Start 07/21/25 at 15:30; Stop 07/21/25 at 16:25; Status DC Sodium Bicarbonate 100 meq ONCE ONCE IV Last administered on 07/21/25at 16:42; Start 07/21/25 at 16:30; Stop 07/21/25 at 16:31; Status DC Thiamine HCl 100 mg DAILY IVP Last administered on 07/29/25at 08:21; Start 07/22/25 at 21:00; Stop 08/21/25 at 20:59 Diatrizoate Meglum/ Diatrizoate Sod 30 ml STK-MED ONCE .ROUTE; Start 07/23/25 at 15:13; Stop 07/23/25 at 15:13; Status DC Potassium Chloride 100 ml @ 100 mls/hr AD PRN IV Last administered on 07/30/25at 06:23; Start 07/24/25 at 08:30; Stop 08/23/25 at 08:29 Potassium Chloride 20 meq AD PRN PO; Start 07/24/25 at 08:30; Stop 08/23/25 at 08:29 Potassium Chloride 20 meq AD PRN PO Last administered on 07/27/25at 20:33; Start 07/24/25 at 08:30; Stop 08/23/25 at 08:29 Hydromorphone HCl 0.5 mg Q4H PRN IVP Last administered on 07/29/25at 08:22; Start 07/24/25 at 10:00; Stop 07/29/25 at 09:59; Status DC Spironolactone 25 mg BID PO Last administered on 07/26/25at 08:56; Start 07/25/25 at 21:00; Stop 07/26/25 at 09:01; Status DC Albumin Human 100 ml @ 0 mls/hr ONCE ONCE IV Last administered on 07/25/25at 17:05; Start 07/25/25 at 10:30; Stop 07/25/25 at 10:31; Status DC Albumin Human 100 ml @ 0 mls/hr ONCE IV Last administered on 07/25/25at 13:43; Start 07/25/25 at 12:00; Stop 07/26/25 at 11:59; Status DC Cyclobenzaprine HCl 5 mg TID PO Last administered on 07/26/25at 14:19; Start 07/25/25 at 14:00; Stop 07/26/25 at 14:00; Status DC Furosemide 20 mg DAILY PO Last administered on 07/29/25at 08:21; Start 07/25/25 at 11:00; Stop 08/24/25 at 10:59 Pantoprazole Sodium 40 mg BID IV Last administered on 07/30/25at 07:52; Start 07/26/25 at 21:00; Stop 08/20/25 at 08:59 Psyllium Hydrophilic Mucilloid 1 tbs BID PO Last administered on 07/29/25at 20:28; Start 07/26/25 at 21:00; Stop 08/25/25 at 20:59 Lactobacillus Rhamnosus 1 each DAILY20 PO Last administered on 07/29/25at 20:28; Start 07/26/25 at 20:00; Stop 08/25/25 at 19:59 Iron Sucrose 200 mg ONCE ONCE IV Last administered on 07/26/25at 14:19; Start 07/26/25 at 14:00; Stop 07/26/25 at 14:01; Status DC Lidocaine 1 patch DAILY TP Last administered on 07/30/25at 07:54; Start 07/28/25 at 09:00; Stop 08/27/25 at 08:59 Simethicone 80 mg Q6H6 PO Last administered on 07/29/25at 23:25; Start 07/27/25 at 12:00; Stop 08/26/25 at 11:59 Acetaminophen 500 mg Q6H6 PRN PO; Start 07/27/25 at 16:30; Stop 08/26/25 at 16:29 Lidocaine 1 patch ONCE ONCE TP Last administered on 07/27/25at 19:25; Start 07/27/25 at 19:30; Stop 07/27/25 at 19:31; Status DC Albumin Human 50 ml @ 0 mls/hr AD ONCE IV Last administered on 07/28/25at 17:44; Start 07/28/25 at 15:30; Stop 07/28/25 at 15:31; Status DC Albumin Human 100 ml @ 0 mls/hr AD ONCE IV Last administered on 07/29/25at 14:26; Start 07/29/25 at 12:30; Stop 07/29/25 at 12:31; Status DC Hydromorphone HCl 0.5 mg Q4H PRN IVP Last administered on 07/30/25at 13:57; Start 07/29/25 at 13:30; Stop 08/03/25 at 13:29 Gabapentin 100 mg TID PO Last administered on 07/30/25at 13:58; Start 07/29/25 at 14:00; Stop 08/28/25 at 13:59 Clotrimazole 1 GM BID TP Last administered on 07/30/25at 08:40; Start 07/29/25 at 21:00; Stop 08/28/25 at 20:59 Sucralfate 1 gm ACHS PO Last administered on 07/29/25at 20:28; Start 07/29/25 at 21:00; Stop 08/28/25 at 20:59 BENEDICTO OBRIEN Jr. Jul 30, 2025 15:56
[2025-07-30 16:00] VITALS: BP 99/70; PULSE 65; RESP 18; TEMP 98.1
--- NOTE | 2025-07-30 16:16 | PN ---
[facility] PROGRESS NOTE Date of Service: Jul 30, 2025 Time of Service: 16:06 SUBJECTIVE: Ms. Gray is a 55-year-old female that was seen and examined today on 07/20/2025. Patient reports that she came to the emergency department with a chief complaint of abdominal pain. Onset was 07/09/2025. Location is all four quadrants. Duration is constant. Character is described as pressure and " like I have a lot of gas trapped. " there was no alleviating factors. There was no aggravating factors. Patient reports associated abdominal swelling. 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 After the discharge she was taking pain medications and her condition started worsening after few days. She is in constant follow up with Dr Gann. Today in the emergency department WBCs 21.2, left shift neutrophils 85.5%, BUN 26, creatinine 3.1, GFR 17, lactic acid 8.0, no urinalysis has been collected or sent to lab, CT of abdomen and pelvis showed of free air in the abdomen which could be a suspected bowel perforation versus postsurgical changes, moderate ascites, fissure post surgical changes. Chest x-ray shows right pleural effusion. Additionally patient had a heart rate of 125, respirations 26, together with leukocytosis and lactic acidosis patient met clinical sepsis criteria additionally patient's blood pressure dropped to 85/50 mmHg requiring vasopressor support therefore meeting criteria for septic shock. Patient will be admitted to the intensive care unit. Emergency room physician spoke with patient's surgeon, Dr. Gann who requested patient be admitted under hospitalist service and she will follow this case along. 07/21/25 Patient was evaluated at the bedside. She was accompanied by her daughter. She is oriented to the time, place and person. She complained of abdominal pain in all the quadrants. She hasn't had bowel movement since Saturday and also is unable to pass flatus at this time. She has guarding, rigidity and tenderness all over the abdomen, showing the signs of peritonitis. She was seen by Dr Gann this mo rning and is planned to be taken to OR this afternoon. Dueñas catheter is in place, as she wasn't able to pass the urine. There is no fever, chills and any other signs of infection. 07/22/25 Patient was evaluated at the bedside. She was accompanied by her daughter. She is oriented to the time, place and person. She underwent Diagnostic laparoscopy, abdominal washout, drain placement and diverting loop ileostomy creation, The procedure revealed Bilious peritonitis, 2 mm perforation of the colonic anastomosis. She is hemodynamically stable with Blood pressure of 110/73 and HR of 83. Currently she complains of abdominal pain which is getting better than yesterday, its 3-4/10 intensity. There is no rigidity. She is anxious about the outcomes and had discussion regarding her current clinical status and lab parameters. There is no fever, chills and any other signs of infection. 07/23/25 Patient was evaluated at the bedside. She was accompanied by her daughter. She is oriented to the time, place and person. She status post diagnostic laparoscopy, abdominal washout, drain placement and diverting loop ileostomy creation. Currently she complains of abdominal pain which is 5/10 intensity. She also complaints of mild lower back pain There is no fever, chills and any other signs of infection. She has CHRIS drain in-situ with clear fluid along with colostomy bag. She is currently tolerating clear liquid diet. 07/24/2025 Patient is seen and examined at the bedside. Vitals blood pressure ranging in 100s/50s, pulse rate 50s, SpO2 greater than 95% on room air. She mentions about experiencing pressure-like discomfort on the right side of the abdomen and pain when she tries to eat. No acute events last night. She denies fever, chills, nausea, vomiting, chest pain. CHRIS output approximately 100cc/hr, serosanguineous fluid. Ileostomy bag in place. She is tolerating clear liquid diet without any nausea/vomiting. Labs hemoglobin 9.8, BUN 38, creatinine improved from 1.6-1.1. 07/25/2025 Patient is seen and examined at the bedside. She complains of abdominal pain which is 7/10 in intensity. No acute events last night. She denies fever, chills, nausea, vomiting, chest pain. CHRIS output approximately 100cc/hr, serosanguineous fluid. Ileostomy bag in place. The patient has been started on spironolactone 25mg BID and Lasix 20 mg once daily. There is high output from CHRIS but it is clear serous, most likely related to her ascites from her history of liver cirrhosis. She is tolerating clear liquid diet without any nausea/vomiting. 07/26/2025 Patient is seen and examined at the bedside. She complains of abdominal pain which remains constant. No acute events last night. She denies fever, chills, nausea, vomiting, chest pain. Patient is status post with a CHRIS drain. The drain has been collecting the serosanguineous fluid secondary to ascites. She has been tolerating liquid diet and her diet has been advanced to soft diet. She still nielsen s bloating for which probiotics and fibers has been recommended. Hemoglobin has gradually trended down to 9.2 and was given IV Venofer. Patient to get up and ambulate and work with physical therapy. 07/27/2025 Patient is seen and examined at the bedside. She complains of abdominal pain which is 6/10 in intensity. No acute events last night. She denies fever, chills, nausea, vomiting, chest pain. Patient is unable to tolerate the soft diet, hence she is currently receiving the liquid diets. The CHRIS drain output is still high and there was small amount of drainage observed in the right ileostomy. 07/28/2025 Patient is seen and examined at the bedside. She complains of abdominal pain which is 9/10 in intensity. No acute events last night. She denies fever, chills, nausea, vomiting, chest pain. Patient reported pain after eating but no nausea or vomiting. WBC is gradually trending up from 8.3-7.3-11.1-11.8. She had lidocaine patch placed this morning. She was started on simethicone 80 mg yesterday. Pertinent she is currently receiving Dilaudid 0.5 mg. Abdominal ultrasound has been ordered for further assessment. 07/29/2025 Patient is seen and examined at the bedside. She continues to complain of severe abdominal pain, rated 9/10 in intensity, unchanged from prior. She is currently receiving Dilaudid 0.5 mg for pain. She reports discomfort related to Dueñas catheterization. She denies fever, chest pain, nausea or vomiting at this time. No acute events were reported overnight. Blood pressure noted today is noted to be 98/54 mm Hg which is slightly low. Per surgery team, stoma is likely to be removed today. Hemoglobin has trended down from 9.7 g/dl to 9.0 g/dl. 07/30/2025 Patient is seen and examined at the bedside. She continues to complain of severe abdominal pain. Her abdominal distention has slightly improved. Dueñas's catheter was removed due to persistent discomfort. We will continue with scheduled removal of the ascites fluid and from CHRIS bulb. Ultrasound of abdomen was concerning for cholelithiasis with biliary sludge and gallbladder distention. HIDA scan was performed today. If consistent with cholecystitis patient will need cholecystostomy tube placement. REVIEW OF SYSTEMS CONSTITUTIONAL: No fever, chills, or night sweats. NEUROLOGICAL: Denies headache, sensory and motor deficit. CARDIOVASCULAR: Denies any exertional angina, dyspnea on exertion, palp itations. PULMONARY: Denies any shortness of breath, cough, phlegm/sputum, hemoptysis, pleuritic chest pain. GASTROINTESTINAL: Patient complains of diffuse abdominal pain 9/10 intensity. She also has bloating. Denies nausea, vomiting. GENITOURINARY: Denies frequency, urgency, nocturia, hematuria or incontinence. PHYSICAL EXAM GENERAL APPEARANCE: The patient is alert, awake and oriented and bedbound. NEUROLOGICAL: No sensory and motor deficits. CHEST: Normal chest expansion. LUNGS: Normal Vesicular breath sound. Absence of any rales, rhonchi or any wheezing. CARDIOVASCULAR: Regular. S1 and S2 normal. No appreciable rubs, murmurs or gallops. ABDOMEN: Abdomen is soft and slightly tender. CHRIS drain is placed. Ileostomy creation. Absence of guarding, rigidity and rebound tenderness. GENITOURINARY: No suprapubic tenderness. No costovertebral angle tenderness. LABS: Laboratory: Test 07/30/25 13:35 07/30/25 07:15 07/30/25 05:32 07/30/25 03:34 Range/Units Iron Level 24 L 50-170 mcg/dL Total Iron Binding Capacity 147 L 250-450 mcg/dL Percent Iron Saturation 16.3 L 22-44 % Serum Osmolality 274 L 278-305 mOsm/kg Whole Blood Glucose 107 70-110 MG/DL White Blood Count 9.2 4.8-10.8 K/uL Red Blood Count 2.92 L 4.00-5.50 MIL/uL Hemoglobin 8.9 L 12.0-16.0 g/dL Hematocrit 26.7 L 36-48 % Mean Corpuscular Volume 91.4 79-99 fL Mean Corpuscular Hemoglobin 30.5 27.0-33.0 pg Mean Corpuscular Hemoglobin Concent 33.3 32.0-36.0 g/dL Red Cell Distribution Width 17.5 H 11.0-15.5 % Platelet Count 206 130-400 K/uL Mean Platelet Volume 9.8 7.5-10.5 fL Nucleated Red Blood Cells 0.0 0.0-0.19 % Sodium Level 133 L 136-145 mmol/L Potassium Level 3.5 3.5-5.1 mmol/L Chloride Level 102 101-111 mmol/L Carbon Dioxide Level 24 21-32 mmol/L Blood Urea Nitrogen 4 L 7-18 mg/dL Creatinine 0.6 0.5-1.0 mg/dL Glomerular Filtration Rate Calc 105 >90 mL/min Random Glucose 107 H 70-105 mg/dL Total Calcium 7.9 L 8.5-10.1 mg/dL Phosphorus Level 2.3 L 2.5-4.9 mg/dL Total Bilirubin 0.8 0.2-1.0 mg/dL Aspartate Amino Transf (AST/SGOT) 22 10-37 U/L Alanine Aminotransferase (ALT/SGPT) 11 L 12-78 U/L Alkaline Phosphatase 69 50-136 U/L Total Protein 5.6 L 6.0-8.3 g/dL Albumin 2.3 L 3.5-5.0 g/dL Test 07/29/25 16:29 07/29/25 16:10 Range/Units Bedside Glucose Comment Notified Nurse Direct Bilirubin 0.4 H 0.0-0.3 mg/dL Current Medications Medications (Trade) Dose Ordered Sig/Gregory Route PRN Reason Start Time Stop Time Status Last Admin Dose Admin Acetaminophen (TYLenol 500MG TAB) 500 mg Q6H6 PRN PO MILD PAIN (1-3) 07/27/25 16:30 08/26/25 16:29 Acetaminophen (TYLenol 650MG SUPPOSITORY) 650 mg Q6H PRN RC MILD PAIN (1-3) 07/21/25 00:00 07/27/25 16:22 DC Albumin Human 100 ml @ 0 mls/hr ONCE IV 07/25/25 12:00 07/26/25 11:59 DC 07/25/25 13:43 100 MLS/HR Clotrimazole (Lotrimin) 1 GM BID TP 07/29/25 21:00 08/28/25 20:59 07/30/25 08:40 1 GM Cyclobenzaprine HCl (Cyclobenzaprine HCl) 5 mg TID PO 07/25/25 14:00 07/26/25 14:00 DC 07/26/25 14:19 5 MG Fluconazole/ Sodium Chloride (DiFLUCan 200 MG/ NS 100 ML) 200 mg Q24H IVPB 07/21/25 21:00 08/20/25 20:59 07/29/25 20:28 200 MG Furosemide (LASix 20MG TAB) 20 mg DAILY PO 07/25/25 11:00 08/24/25 10:59 07/29/25 08:21 20 MG Gabapentin (NEURontin 100 mg CAP) 100 mg TID PO 07/29/25 14:00 08/28/25 13:59 07/30/25 13:58 100 MG Hydromorphone HCl (DiLAUDid 0.5MG INJ) 0.5 mg Q4H PRN IVP SEVERE PAIN (7-10) 07/24/25 10:00 07/29/25 09:59 DC 07/29/25 08:22 0.5 MG Hydromorphone HCl (DiLAUDid 0.5MG INJ) 0.5 mg Q4H PRN IVP SEVERE PAIN (7-10) 07/29/25 13:30 08/03/25 13:29 07/30/25 13:57 0.5 MG Insulin Human Regular (humuLIN R 100 UNIT/ML 3ML) INSULIN SLIDING SCAL... ACHS SQ 07/21/25 07:30 08/20/25 07:29 07/22/25 20:40 3 UNIT Lactated Ringer's 1,000 ml @ 75 mls/hr [id number] IV 07/21/25 00:00 07/21/25 13:17 DC 07/21/25 02:57 75 MLS/HR Lactated Ringer's 1,000 ml @ 75 mls/hr [id number] IV 07/21/25 13:30 07/24/25 11:09 DC 07/24/25 09:27 75 MLS/HR Lactobacillus Rhamnosus ([facility]) 1 each DAILY20 PO 07/26/25 20:00 08/25/25 19:59 07/29/25 20:28 1 EACH Lidocaine (Lidoderm Patch 5%) 1 patch DAILY TP 07/28/25 09:00 08/27/25 08:59 07/30/25 07:54 1 PATCH Magnesium Sulfate 50 ml @ 0 mls/hr PROTOCOL PRN IV MAGNESIUM PROTOCOL 07/21/25 07:00 08/20/25 06:59 07/27/25 17:54 25 MLS/HR Metronidazole/ Sodium Chloride (flaGYL) 500 mg Q8H IV 07/21/25 14:00 07/21/25 13:40 DC Morphine Sulfate (morPHINE 2MG SYG) 2 mg Q4H PRN IVP SEVERE PAIN (7-10) 07/21/25 00:30 07/21/25 13:18 DC 07/21/25 04:46 2 MG Morphine Sulfate (morPHINE 4MG SYG) 4 mg Q3H PRN IV MODERATE PAIN (4-6) 07/21/25 13:30 07/26/25 16:29 DC 07/26/25 10:51 4 MG Norepinephrine 250 ml @ 0 mls/hr PROTOCOL IV 07/20/25 23:30 08/19/25 23:29 07/21/25 10:56 18.45 MLS/HR Ondansetron HCl (zoFRAN 4MG INJ) 4 mg Q4H PRN IVP NAUSEA 07/21/25 13:30 08/20/25 13:29 Ondansetron HCl (zoFRAN 4MG INJ) 4 mg Q6H PRN IV NAUSEA/VOMITING 07/21/25 00:00 07/21/25 13:18 DC Pantoprazole Sodium (PROTonix 40MG INJ) 40 mg BID IV 07/26/25 21:00 08/20/25 08:59 07/30/25 07:52 40 MG Pantoprazole Sodium (PROTonix 40MG INJ) 40 mg DAILY IV 07/21/25 09:00 07/26/25 09:31 DC 07/26/25 08:55 40 MG Pharmacy Profile Note (Pharmacy Communication) 1 each ONCE MISC 07/21/25 15:30 07/21/25 15:16 DC Piperacillin Sod/ Tazobactam Sod 50 ml @ 200 mls/hr ONCE STAT IVPB 07/20/25 19:15 07/20/25 19:29 DC 07/20/25 20:32 200 MLS/HR Piperacillin Sod/ Tazobactam Sod (Zosyn 3.375gm+NS 50ml) 3.375 gm Q12H IV 07/21/25 00:00 07/31/25 00:00 07/30/25 13:57 3.375 GM Potassium Chloride 100 ml @ 100 mls/hr AD PRN IV POTASSIUM PROTOCOL 07/24/25 08:30 08/23/25 08:29 07/30/25 06:23 100 MLS/HR Potassium Chloride (K-Dur/Klor-Con 20meq) 20 meq AD PRN PO POTASSIUM PROTOCOL 07/24/25 08:30 08/23/25 08:29 07/27/25 20:33 20 MEQ Potassium Chloride (KCl 10% Elixir 20meq/15ml) 20 meq AD PRN PO POTASSIUM PROTOCOL 07/24/25 08:30 08/23/25 08:29 Psyllium Hydrophilic Mucilloid (Metamucil) 1 tbs BID PO 07/26/25 21:00 08/25/25 20:59 07/29/25 20:28 1 TBS Simethicone (Mylicon) 80 mg Q6H6 PO 07/27/25 12:00 08/26/25 11:59 07/29/25 23:25 80 MG Sodium Bicarbonate 150 meq/Sodium Chloride 1,150 ml @ 0 mls/hr Q0M IVP 07/21/25 14:00 07/26/25 09:31 DC Spironolactone (Aldactone 25mg) 25 mg BID PO 07/25/25 21:00 07/26/25 09:01 DC 07/26/25 08:56 25 MG Sucralfate (Carafate) 1 gm ACHS PO 07/29/25 21:00 08/28/25 20:59 07/29/25 20:28 1 GM Thiamine HCl (Vitamin B-1) 100 mg DAILY IVP 07/22/25 21:00 08/21/25 20:59 07/29/25 08:21 100 MG Thiamine HCl 100 mg/Sodium Chloride 50 ml @ 100 mls/hr Q24H IM 07/21/25 15:30 07/21/25 16:25 DC Vancomycin HCl (Vancomycin 1g/ 250ml Kit) 1 gm ONCE STAT IV 07/20/25 21:23 07/20/25 21:26 DC 07/20/25 22:06 1 GM Vasopressin 20 units/Sodium Chloride 100 ml @ 0 mls/hr PROTOCOL IV 07/21/25 00:30 08/20/25 00:29 07/21/25 00:10 9 MLS/HR DIAGNOSTICS / RADIOLOGY: [ ] ASSESSMENT: Suspected Bowel Perforation POA Bacterial peritonitis Cholelithiasis Small Bowel Obstruction, Suspected Anastomotic Leak Bilious peritonitis s/p Diagnostic laparoscopy, abdominal washout, drain placement and diverting loop ileostomy creation Iron Deficiency anemia Diabetes Mellitus Type 2 POA Acute Kidney Injury POA Septic Shock POA Cirrhosis of liver POA Esophageal Varices Recent Robotic takedown of splenic flexure mobilization, robotic takedown of colovesical fistula with sigmoid colectomy and end-to-end anastomosis surgery PLAN: Bilious peritonitis status post Diagnostic laparoscopy, abdominal washout, drain placement and diverting loop ileostomy creation She is able to tolerate the clear liquid diet -Continue close monitoring of the patient -continue physical therapy -Monitor CHRIS drain output -Continues with high output from CHRIS but it is clear serous, most likely related to her ascites from her history of liver cirrhosis -Continue Lactated Ringer's at 75 ml/hr for volume resuscitation and electrolyte replacement -continue Zosyn [day 10 ] and fluconazole [day 10] -Patient has ongoing abdominal pain, currently awaiting for the clinical symptoms to improve for the discharge in 24-48 hrs. 07/25/25 -Flexeril 5 mg t.i.d. has been started by the Surgery team. -Hemoglobin has gradually trended down to 9.2 and planning to start her on IV Venofer. 07/26/25 -Advance diet to Soft diet -Probiotics and Fibers have been added for bloating. -As per the Surgery: Waiting for the symptoms to resolve and see if she can tolerate the advanced diet for proper discharge timeline. -Protonix IV increased to twice daily. * Patient could not tolerate soft diet, currently receiving liquid diet only. 07/27/25 * Her WBC has trended up (11.3), we will closely monitor the patient * General Surgery team is following up the patient closely. * Patient reported pain after eating but no nausea or vomiting. She had lidocaine patch placed this morning. * Currently receiving Dilaudid 0.5 mg. * Abdominal ultrasound has been ordered for further assessment. * PT to continue ambulating patient * Continue emptying CHRIS drain every 3-4 hours to prevent large volume fluid loss, monitor output. * Albumin 25% as IV, 50ml administered on 07/28/2025. * Started on simethicone 80 mg q.6 per oral. 07/28/25 * Per surgery team, stoma is likely to be removed today. 07/29/25 * Blood pressure noted today is noted to be 98/54 mm Hg which is slightly low. * As per Dr. Adams, from Gastroenterology: No GI endoscopic intervention recommended at this time, we will defer to surgical recommendations. * Patient will be given 2 doses of Albumin 25% as IV today. * Morning Cortisol AM will be ordered to assess low blood pressure. * As per the surgery: Order HIDA scan to evaluate gallbladder and if consistent with cholecystitis patient will need cholecystostomy tube placement. Dueñas drain to be removed. 07/29/25 * HIDA scan was performed today. Pending reports. 07/30/25 * Bacterial Peritonitis * Post Surgical patient with Bacterial peritonitis positive for ESBL * Culture and sensitivity shows susceptibility to Zosyn, Gentamicin and Meropenem. * Likely secondary to post-operative intraabdominal infection with risk of ongoing contamination. * Currently patient is on Zosyn (Day 10) Cholelithiasis * Patient complained of upper abdominal pain * Ultrasound abdomen showed: Cirrhotic-appearing liver * Cholelithiasis and biliary sludge with gallbladder distension and Small volume ascites. * Surgery is on the board and awaiting further recommendations. 07/29/25 Small Bowel Obstruction, Suspected * Patient complaints of abdominal pain which is 9/10 on intensity * Abdominal Xray showed: Dilated small bowel loops are seen in mid abdomen * Perform Serial abdominal exams * Pain management(avoid excess opioids if ileus is suspected) * Evaluate drain, bowel status * Monitor for resolution vs progression of Ileus/obstruction. 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 - CT abdominal pelvis w/contrast done on 07/20/2025 showed Free air in the upper abdomen is seen, suggesting perforated bowel vs post surgical changes. No obstruction. -underwent Diagnostic laparoscopy, abdominal washout, drain placement and diverting loop ileostomy creation for biliary peritonitis Iron Deficiency anemia * Hemoglobin has trended down from 9.7 g/dl to 9.0- 8.9 g/dl. 07/30/25 * Anemia panel has been ordered. Results showed Iron 24L, %sat 16.3 and TIBC 147L. 07/30/25 * Recommend trending Hgb and transfuse as needed to goal Hgb >7. * Plan to initiate the patient on Venofer, her last dose of Venofer was 200 mg on 07/26/2025 * Iron level is 20L, % saturation 11.9, TIBC 167L, Ferritin 129. 9 Septic Shock -resolved -WBC is gradually trending up from 8.3-7.3-11.1-11.8-9.2. 07/29/25 -Her WBC during the presentation was 21.2 and today its 7.3. 07/26/25 -lactic acid normal at 1.6 yesterday -blood and urine culture results are negative Acute Kidney Injury Resolved -Creatinine improved from 1.6-1.1-0.7-0.6-0.6-0.6-0.6. 07/29/25 -Initial FeNA is 0.1 %, probably secondary to dehydration and NSAIDs overuse. -initial Urine sodium is < 13 and urine creatinine is 132.17. -Avoid nephrotoxic agents, eg. NSAIDS. -Weight patient daily. -Monitor intake and output. Cirrhosis of liver -Patient has a past history of cirrhosis of liver. -Ammonia level was 33 which reduced from 40. 9/. - Liver functions are within normal limits. AST 23, ALT 12 and ALP 108. - Avoid NSAIDs and high dose acetaminophen. -Maintain appropriate volume of the patient. * Patient has been started on Spironolactone 25 mg b.i.d. and Lasix 20 mg once daily. 07/25/25 Supportive measures -Maintain IV fluids, correct electrolytes -Serial abdominal exams -Management Services Technician on avoidance of NSAIDS and other related triggers. -Monitor Vitals and perform morning labs regularly Continue GI prophylaxis with Pantop Continue DVT prophylaxis with SCDs, we will avoid heparin due to history of allergies to porcine, we will coordinate with surgery consult on initiation of other anticoagulants ATTESTATION BY PHYSICIAN I have seen and examined the patient. I reviewed the documentation, medical decision making, and treatment plan as noted by the resident provider above. I agree with the findings and plan of care. Miguel Conley MD [facility] [place] Jul 30, 2025 16:16
--- NOTE | 2025-07-30 16:44 | PN ---
INFECTIOUS DISEASE PROGRESS NOTE Date of Service: Jul 30, 2025 SUBJECTIVE: This 55 year old female patient is being seen today at bedside. NO fever or chills. no nausea or vomiting. Patient remains on antibiotics, fluconazole and Zosyn for positive ESBL, E.coli to peritoneal fluid. She does stated to have abdominal discomfort at this time. We continue to follow patient closely. Pending HIDA scan results. Patient Dueñas catheter has been removed and is voiding. We continue to follow patient closely. PHYSICAL EXAM EYES: Anicteric. Pupils equal and reactive. HENT: No oral thrush seen, moist Oral mucosa. NECK: Supple, no JVD or thyromegaly. LUNGS: Good air entry. No rales, no rhonchi. CARDIOVASCULAR: S1, S2 regular. No murmur heard. ABDOMEN: Soft, non tender, bowel sounds present, no organomegaly. CHRIS drain. Ileostomy creation. CENTRAL NERVOUS SYSTEM: Awake, alert, oriented x 3. SKIN: No rashes, no swelling. LYMPHATICS: No peripheral lymphadenopathy. MUSCULOSKELETAL: No joint swelling, erythema or tenderness. EXTREMITIES: No cyanosis or clubbing. BACK: No deformity, no pressure ulcer. GENITOURINARY: No dysuria or hematuria. Vital Sign (Last 12 Hours) 07/30/25 08:00 Temp 98.6 Pulse 81 Resp 17 B/P (MAP) 106/64 Pulse Ox 100 O2 Delivery Room Air Intake & Output (last 24hrs) 07/29/25 07/29/25 07/30/25 15:00 23:00 07:00 Intake Total 300.0 ml Output Total 2100 ml 460 ml Balance -2100 ml -160.0 ml LABS: Laboratory: Test 07/30/25 16:24 07/30/25 13:35 07/30/25 07:15 07/30/25 03:34 Range/Units Whole Blood Glucose 81 70-110 MG/DL Bedside Glucose Comment Notified Nurse Iron Level 24 L 50-170 mcg/dL Total Iron Binding Capacity 147 L 250-450 mcg/dL Percent Iron Saturation 16.3 L 22-44 % Serum Osmolality 274 L 278-305 mOsm/kg White Blood Count 9.2 4.8-10.8 K/uL Red Blood Count 2.92 L 4.00-5.50 MIL/uL Hemoglobin 8.9 L 12.0-16.0 g/dL Hematocrit 26.7 L 36-48 % Mean Corpuscular Volume 91.4 79-99 fL Mean Corpuscular Hemoglobin 30.5 27.0-33.0 pg Mean Corpuscular Hemoglobin Concent 33.3 32.0-36.0 g/dL Red Cell Distribution Width 17.5 H 11.0-15.5 % Platelet Count 206 130-400 K/uL Mean Platelet Volume 9.8 7.5-10.5 fL Nucleated Red Blood Cells 0.0 0.0-0.19 % Sodium Level 133 L 136-145 mmol/L Potassium Level 3.5 3.5-5.1 mmol/L Chloride Level 102 101-111 mmol/L Carbon Dioxide Level 24 21-32 mmol/L Blood Urea Nitrogen 4 L 7-18 mg/dL Creatinine 0.6 0.5-1.0 mg/dL Glomerular Filtration Rate Calc 105 >90 mL/min Random Glucose 107 H 70-105 mg/dL Total Calcium 7.9 L 8.5-10.1 mg/dL Phosphorus Level 2.3 L 2.5-4.9 mg/dL Total Bilirubin 0.8 0.2-1.0 mg/dL Aspartate Amino Transf (AST/SGOT) 22 10-37 U/L Alanine Aminotransferase (ALT/SGPT) 11 L 12-78 U/L Alkaline Phosphatase 69 50-136 U/L Total Protein 5.6 L 6.0-8.3 g/dL Albumin 2.3 L 3.5-5.0 g/dL Test 07/29/25 16:10 Range/Units Direct Bilirubin 0.4 H 0.0-0.3 mg/dL ASSESSMENT: Hypoxic respiratory failure requiring oxygen support. Septic shock. Generalized peritonitis with ESBL and E coli infection. Infection with multidrug resistant organism. Hypoalbuminemia. Suspected bowel perforation, s/p diagnostic laparoscopy, abdominal washout, ileostomy creation and CHRIS drain placement on 07/21/2025. Leukocytosis. Acute renal failure. Diabetes mellitus. Recent colovesical fistula repair with sigmoid colon resection and anastomosis on 07/09/2025 PLAN: Continue Zosyn. Continue fluconazole. Continue pain management. Avoid nephrotoxic medications. Continue GI prophylaxis. Continue antidiabetics. Dietitian consult patient needs a high-protein diet. This case was reviewed and discussed with my supervising physician Dr. Tripathi and the above assessment and plan was formulated and agreed upon. [facility] Jul 30, 2025 16:44
[2025-07-30 20:00] VITALS: BP 103/50; PULSE 88; RESP 20; TEMP 99.3
[2025-07-31] VITALS: BP 111/58; PULSE 82; RESP 18; TEMP 98.1
[2025-07-31 04:00] VITALS: BP 101/62; PULSE 81; RESP 18; TEMP 98.2
[2025-07-31 04:10] LABS: NUCLEATED RED BLOOD CELLS 0.0 % (0.0-0.19); PLATELET COUNT (AUTO) 217.0 K/uL (130-400); RED BLOOD CELL COUNT(AUTO) 2.96 MIL/uL (4.00-5.50); RED CELL DISTRIBUTION WIDTH 17.7 % (11.0-15.5); WHITE BLOOD COUNT (AUTO) 8.8 K/uL (4.8-10.8)
[2025-07-31 04:56] LABS: ASPARTATE AMINOTRANSFERASE 23.0 U/L (10-37); CREATININE 0.5 mg/dL (0.5-1.0); GLOMERULAR FILTR. RATE CALC 109.0 mL/min (>90); GLUCOSE,RANDOM 88.0 mg/dL (70-105); PHOSPHORUS 2.1 mg/dL (2.5-4.9); SODIUM SERUM 133.0 mmol/L (136-145); TOTAL PROTEIN, SERUM 5.4 g/dL (6.0-8.3); UREA NITROGEN, BLOOD 5.0 mg/dL (7-18)
[2025-07-31 08:00] VITALS: BP 93/52; PULSE 81; RESP 16; TEMP 98.3; O2SAT 98
[2025-07-31] MEDS: PoTASSium chl 10% ELIXIR 20MEQ 20 MEQ/15 ML UDCUP PO PRN (08:15)
--- NOTE | 2025-07-31 09:47 | PN ---
[facility] PROGRESS NOTE Date of Service: Jul 31, 2025 Time of Service: 09:30 SUBJECTIVE: Ms. Gray is a 55-year-old female that was seen and examined today on 07/20/2025. Patient reports that she came to the emergency department with a chief complaint of abdominal pain. Onset was 07/09/2025. Location is all four quadrants. Duration is constant. Character is described as pressure and " like I have a lot of gas trapped. " there was no alleviating factors. There was no aggravating factors. Patient reports associated abdominal swelling. 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 After the discharge she was taking pain medications and her condition started worsening after few days. She is in constant follow up with Dr Gann. Today in the emergency department WBCs 21.2, left shift neutrophils 85.5%, BUN 26, creatinine 3.1, GFR 17, lactic acid 8.0, no urinalysis has been collected or sent to lab, CT of abdomen and pelvis showed of free air in the abdomen which could be a suspected bowel perforation versus postsurgical changes, moderate ascites, fissure post surgical changes. Chest x-ray shows right pleural effusion. Additionally patient had a heart rate of 125, respirations 26, together with leukocytosis and lactic acidosis patient met clinical sepsis criteria additionally patient's blood pressure dropped to 85/50 mmHg requiring vasopressor support therefore meeting criteria for septic shock. Patient will be admitted to the intensive care unit. Emergency room physician spoke with patient's surgeon, Dr. Gann who requested patient be admitted under hospitalist service and she will follow this case along. 07/21/25 Patient was evaluated at the bedside. She was accompanied by her daughter. She is oriented to the time, place and person. She complained of abdominal pain in all the quadrants. She hasn't had bowel movement since Saturday and also is unable to pass flatus at this time. She has guarding, rigidity and tenderness all over the abdomen, showing the signs of peritonitis. She was seen by Dr Gann this mo rning and is planned to be taken to OR this afternoon. Dueñas catheter is in place, as she wasn't able to pass the urine. There is no fever, chills and any other signs of infection. 07/22/25 Patient was evaluated at the bedside. She was accompanied by her daughter. She is oriented to the time, place and person. She underwent Diagnostic laparoscopy, abdominal washout, drain placement and diverting loop ileostomy creation, The procedure revealed Bilious peritonitis, 2 mm perforation of the colonic anastomosis. She is hemodynamically stable with Blood pressure of 110/73 and HR of 83. Currently she complains of abdominal pain which is getting better than yesterday, its 3-4/10 intensity. There is no rigidity. She is anxious about the outcomes and had discussion regarding her current clinical status and lab parameters. There is no fever, chills and any other signs of infection. 07/23/25 Patient was evaluated at the bedside. She was accompanied by her daughter. She is oriented to the time, place and person. She status post diagnostic laparoscopy, abdominal washout, drain placement and diverting loop ileostomy creation. Currently she complains of abdominal pain which is 5/10 intensity. She also complaints of mild lower back pain There is no fever, chills and any other signs of infection. She has CHRIS drain in-situ with clear fluid along with colostomy bag. She is currently tolerating clear liquid diet. 07/24/2025 Patient is seen and examined at the bedside. Vitals blood pressure ranging in 100s/50s, pulse rate 50s, SpO2 greater than 95% on room air. She mentions about experiencing pressure-like discomfort on the right side of the abdomen and pain when she tries to eat. No acute events last night. She denies fever, chills, nausea, vomiting, chest pain. CHRIS output approximately 100cc/hr, serosanguineous fluid. Ileostomy bag in place. She is tolerating clear liquid diet without any nausea/vomiting. Labs hemoglobin 9.8, BUN 38, creatinine improved from 1.6-1.1. 07/25/2025 Patient is seen and examined at the bedside. She complains of abdominal pain which is 7/10 in intensity. No acute events last night. She denies fever, chills, nausea, vomiting, chest pain. CHRIS output approximately 100cc/hr, serosanguineous fluid. Ileostomy bag in place. The patient has been started on spironolactone 25mg BID and Lasix 20 mg once daily. There is high output from CHRIS but it is clear serous, most likely related to her ascites from her history of liver cirrhosis. She is tolerating clear liquid diet without any nausea/vomiting. 07/26/2025 Patient is seen and examined at the bedside. She complains of abdominal pain which remains constant. No acute events last night. She denies fever, chills, nausea, vomiting, chest pain. Patient is status post with a CHRIS drain. The drain has been collecting the serosanguineous fluid secondary to ascites. She has been tolerating liquid diet and her diet has been advanced to soft diet. She still nielsen s bloating for which probiotics and fibers has been recommended. Hemoglobin has gradually trended down to 9.2 and was given IV Venofer. Patient to get up and ambulate and work with physical therapy. 07/27/2025 Patient is seen and examined at the bedside. She complains of abdominal pain which is 6/10 in intensity. No acute events last night. She denies fever, chills, nausea, vomiting, chest pain. Patient is unable to tolerate the soft diet, hence she is currently receiving the liquid diets. The CHRIS drain output is still high and there was small amount of drainage observed in the right ileostomy. 07/28/2025 Patient is seen and examined at the bedside. She complains of abdominal pain which is 9/10 in intensity. No acute events last night. She denies fever, chills, nausea, vomiting, chest pain. Patient reported pain after eating but no nausea or vomiting. WBC is gradually trending up from 8.3-7.3-11.1-11.8. She had lidocaine patch placed this morning. She was started on simethicone 80 mg yesterday. Pertinent she is currently receiving Dilaudid 0.5 mg. Abdominal ultrasound has been ordered for further assessment. 07/29/2025 Patient is seen and examined at the bedside. She continues to complain of severe abdominal pain, rated 9/10 in intensity, unchanged from prior. She is currently receiving Dilaudid 0.5 mg for pain. She reports discomfort related to Dueñas catheterization. She denies fever, chest pain, nausea or vomiting at this time. No acute events were reported overnight. Blood pressure noted today is noted to be 98/54 mm Hg which is slightly low. Per surgery team, stoma is likely to be removed today. Hemoglobin has trended down from 9.7 g/dl to 9.0 g/dl. 07/30/2025 Patient is seen and examined at the bedside. She continues to complain of severe abdominal pain. Her abdominal distention has slightly improved. Dueñas's catheter was removed due to persistent discomfort. We will continue with scheduled removal of the ascites fluid and from CHRIS bulb. Ultrasound of abdomen was concerning for cholelithiasis with biliary sludge and gallbladder distention. HIDA scan was performed today. If consistent with cholecystitis patient will need cholecystostomy tube placement. 07/31/2025 Patient is seen and examined at the bedside. She was accompanied by her daughter. She continues to complain of severe abdominal pain. She is currently on Dilaudid 0.5mg Q4H PRN, which relieves the symptoms for 2-3 hours, after that she develops same level of pain and discomfort again. Currently awaiting the HIDA scan results. Her sodium level is 133 and albumin level is trending downwards from 2.3 to 2.1. Her Iron panel results showed: Iron 20L, TIBC 147L and %sat 16.3L. For her continuos pain she is started on Fentanyl 25mcg. CHRIS drain culture has beens sent. Based on the results of HIDA scan, CT chest will be planned. REVIEW OF SYSTEMS CONSTITUTIONAL: No fever, chills, or night sweats. NEUROLOGICAL: Denies headache, sensory and motor deficit. CARDIOVASCULAR: Denies any exertional angina, dyspnea on exertion, palpitations. PULMONARY: Denies any shortness of breath, cough, phlegm/sputum, hemoptysis, pleuritic chest pain. GASTROINTESTINAL: Patient complains of diffuse abdominal pain 9/10 intensity. She also has bloating. Denies nausea, vomiting. GENITOURINARY: Denies frequency, urgency, nocturia, hematuria or incontinence. PHYSICAL EXAM GENERAL APPEARANCE: The patient is alert, awake and oriented and bedbound. NEUROLOGICAL: No sensory and motor deficits. CHEST: Normal chest expansion. LUNGS: Normal Vesicular breath sound. Absence of any rales, rhonchi or any wheezing. CARDIOVASCULAR: Regular. S1 and S2 normal. No appreciable rubs, murmurs or gallops. ABDOMEN: Abdomen is soft and slightly tender. CHRIS drain is placed. Ileostomy creation. Absence of guarding, rigidity and rebound tenderness. GENITOURINARY: No suprapubic tenderness. No costovertebral angle tenderness. Vital Signs (last 8hr) Date Time Temp Pulse Resp B/P (MAP) Pulse Ox O2 Delivery O2 Flow Rate FiO2 07/31/25 08:00 98 Room Air* 0 21 07/31/25 04:00 98.2 81 18 101/62 97 Room Air LABS: Laboratory: Test 07/31/25 05:19 07/31/25 03:49 07/30/25 22:42 07/30/25 16:24 Range/Units Whole Blood Glucose 92 70-110 MG/DL White Blood Count 8.8 4.8-10.8 K/uL Red Blood Count 2.96 L 4.00-5.50 MIL/uL Hemoglobin 8.9 L 12.0-16.0 g/dL Hematocrit 27.5 L 36-48 % Mean Corpuscular Volume 92.9 79-99 fL Mean Corpuscular Hemoglobin 30.1 27.0-33.0 pg Mean Corpuscular Hemoglobin Concent 32.4 32.0-36.0 g/dL Red Cell Distribution Width 17.7 H 11.0-15.5 % Platelet Count 217 130-400 K/uL Mean Platelet Volume 9.8 7.5-10.5 fL Nucleated Red Blood Cells 0.0 0.0-0.19 % Sodium Level 133 L 136-145 mmol/L Potassium Level 3.7 3.5-5.1 mmol/L Chloride Level 101 101-111 mmol/L Carbon Dioxide Level 23 21-32 mmol/L Blood Urea Nitrogen 5 L 7-18 mg/dL Creatinine 0.5 0.5-1.0 mg/dL Glomerular Filtration Rate Calc 109 >90 mL/min Random Glucose 88 70-105 mg/dL Total Calcium 8.1 L 8.5-10.1 mg/dL Phosphorus Level 2.1 L 2.5-4.9 mg/dL Total Bilirubin 0.7 0.2-1.0 mg/dL Aspartate Amino Transf (AST/SGOT) 23 10-37 U/L Alanine Aminotransferase (ALT/SGPT) 9 L 12-78 U/L Alkaline Phosphatase 67 50-136 U/L Total Protein 5.4 L 6.0-8.3 g/dL Albumin 2.1 L 3.5-5.0 g/dL Urine Random Sodium 60 40-220 mmol/l Urine Random Potassium 20 L 25-125 mmol/L Urine Random Chloride 72 L 110-250 mmol/L Bedside Glucose Comment Notified Nurse Test 07/30/25 13:35 07/30/25 07:15 07/29/25 16:10 Range/Units Iron Level 24 L 50-170 mcg/dL Total Iron Binding Capacity 147 L 250-450 mcg/dL Percent Iron Saturation 16.3 L 22-44 % Serum Osmolality 274 L 278-305 mOsm/kg Direct Bilirubin 0.4 H 0.0-0.3 mg/dL Current Medications Medications (Trade) Dose Ordered Sig/Gregory Route PRN Reason Start Time Stop Time Status Last Admin Dose Admin Acetaminophen (TYLenol 500MG TAB) 500 mg Q6H6 PRN PO MILD PAIN (1-3) 07/27/25 16:30 08/26/25 16:29 Acetaminophen (TYLenol 650MG SUPPOSITORY) 650 mg Q6H PRN RC MILD PAIN (1-3) 07/21/25 00:00 07/27/25 16:22 DC Albumin Human 100 ml @ 0 mls/hr ONCE IV 07/25/25 12:00 07/26/25 11:59 DC 07/25/25 13:43 100 MLS/HR Clotrimazole (Lotrimin) 1 GM BID TP 07/29/25 21:00 08/28/25 20:59 07/31/25 08:16 1 GM Cyclobenzaprine HCl (Cyclobenzaprine HCl) 5 mg TID PO 07/25/25 14:00 07/26/25 14:00 DC 07/26/25 14:19 5 MG Fluconazole/ Sodium Chloride (DiFLUCan 200 MG/ NS 100 ML) 200 mg Q24H IVPB 07/21/25 21:00 08/20/25 20:59 07/30/25 19:43 200 MG Furosemide (LASix 20MG TAB) 20 mg DAILY PO 07/25/25 11:00 08/24/25 10:59 07/29/25 08:21 20 MG Gabapentin (NEURontin 100 mg CAP) 100 mg TID PO 07/29/25 14:00 08/28/25 13:59 07/31/25 08:13 100 MG Hydromorphone HCl (DiLAUDid 0.5MG INJ) 0.5 mg Q4H PRN IVP SEVERE PAIN (7-10) 07/24/25 10:00 07/29/25 09:59 DC 07/29/25 08:22 0.5 MG Hydromorphone HCl (DiLAUDid 0.5MG INJ) 0.5 mg Q4H PRN IVP SEVERE PAIN (7-10) 07/29/25 13:30 08/03/25 13:29 07/31/25 08:13 0.5 MG Insulin Human Regular (humuLIN R 100 UNIT/ML 3ML) INSULIN SLIDING SCAL... ACHS SQ 07/21/25 07:30 08/20/25 07:29 07/22/25 20:40 3 UNIT Lactated Ringer's 1,000 ml @ 75 mls/hr [id number] IV 07/21/25 00:00 07/21/25 13:17 DC 07/21/25 02:57 75 MLS/HR Lactated Ringer's 1,000 ml @ 75 mls/hr [id number] IV 07/21/25 13:30 07/24/25 11:09 DC 07/24/25 09:27 75 MLS/HR Lactobacillus Rhamnosus ([facility] Streamline) 1 each DAILY20 PO 07/26/25 20:00 08/25/25 19:59 07/30/25 19:43 1 EACH Lidocaine (Lidoderm Patch 5%) 1 patch DAILY TP 07/28/25 09:00 08/27/25 08:59 07/31/25 08:13 1 PATCH Magnesium Sulfate 50 ml @ 0 mls/hr PROTOCOL PRN IV MAGNESIUM PROTOCOL 07/21/25 07:00 08/20/25 06:59 07/27/25 17:54 25 MLS/HR Metronidazole/ Sodium Chloride (flaGYL) 500 mg Q8H IV 07/21/25 14:00 07/21/25 13:40 DC Morphine Sulfate (morPHINE 2MG SYG) 2 mg Q4H PRN IVP SEVERE PAIN (7-10) 07/21/25 00:30 07/21/25 13:18 DC 07/21/25 04:46 2 MG Morphine Sulfate (morPHINE 4MG SYG) 4 mg Q3H PRN IV MODERATE PAIN (4-6) 07/21/25 13:30 07/26/25 16:29 DC 07/26/25 10:51 4 MG Norepinephrine 250 ml @ 0 mls/hr PROTOCOL IV 07/20/25 23:30 08/19/25 23:29 07/21/25 10:56 18.45 MLS/HR Ondansetron HCl (zoFRAN 4MG INJ) 4 mg Q4H PRN IVP NAUSEA 07/21/25 13:30 08/20/25 13:29 Ondansetron HCl (zoFRAN 4MG INJ) 4 mg Q6H PRN IV NAUSEA/VOMITING 07/21/25 00:00 07/21/25 13:18 DC Pantoprazole Sodium (PROTonix 40MG INJ) 40 mg BID IV 07/26/25 21:00 08/20/25 08:59 07/31/25 08:13 40 MG Pantoprazole Sodium (PROTonix 40MG INJ) 40 mg DAILY IV 07/21/25 09:00 07/26/25 09:31 DC 07/26/25 08:55 40 MG Pharmacy Profile Note (Pharmacy Communication) 1 each ONCE MISC 07/21/25 15:30 07/21/25 15:16 DC Piperacillin Sod/ Tazobactam Sod 50 ml @ 200 mls/hr ONCE STAT IVPB 07/20/25 19:15 07/20/25 19:29 DC 07/20/25 20:32 200 MLS/HR Piperacillin Sod/ Tazobactam Sod (Zosyn 3.375gm+NS 50ml) 3.375 gm Q12H IV 07/21/25 00:00 07/31/25 00:00 DC 07/30/25 23:55 3.375 GM Potassium Chloride 100 ml @ 100 mls/hr AD PRN IV POTASSIUM PROTOCOL 07/24/25 08:30 08/23/25 08:29 07/30/25 06:23 100 MLS/HR Potassium Chloride (K-Dur/Klor-Con 20meq) 20 meq AD PRN PO POTASSIUM PROTOCOL 07/24/25 08:30 08/23/25 08:29 07/27/25 20:33 20 MEQ Potassium Chloride (KCl 10% Elixir 20meq/15ml) 20 meq AD PRN PO POTASSIUM PROTOCOL 07/24/25 08:30 08/23/25 08:29 07/31/25 08:15 20 MEQ Psyllium Hydrophilic Mucilloid (Metamucil) 1 tbs BID PO 07/26/25 21:00 08/25/25 20:59 07/31/25 08:13 1 TBS Simethicone (Mylicon) 80 mg Q6H6 PO 07/27/25 12:00 08/26/25 11:59 07/31/25 05:42 80 MG Sodium Bicarbonate 150 meq/Sodium Chloride 1,150 ml @ 0 mls/hr Q0M IVP 07/21/25 14:00 07/26/25 09:31 DC Spironolactone (Aldactone 25mg) 25 mg BID PO 07/25/25 21:00 07/26/25 09:01 DC 07/26/25 08:56 25 MG Sucralfate (Carafate) 1 gm ACHS PO 07/29/25 21:00 08/28/25 20:59 07/31/25 06:10 1 GM Thiamine HCl (Vitamin B-1) 100 mg DAILY IVP 07/22/25 21:00 08/21/25 20:59 07/31/25 08:12 100 MG Thiamine HCl 100 mg/Sodium Chloride 50 ml @ 100 mls/hr Q24H IM 07/21/25 15:30 07/21/25 16:25 DC Vancomycin HCl (Vancomycin 1g/ 250ml Kit) 1 gm ONCE STAT IV 07/20/25 21:23 07/20/25 21:26 DC 07/20/25 22:06 1 GM Vasopressin 20 units/Sodium Chloride 100 ml @ 0 mls/hr PROTOCOL IV 07/21/25 00:30 08/20/25 00:29 07/21/25 00:10 9 MLS/HR DIAGNOSTICS / RADIOLOGY: [ ] ASSESSMENT: Suspected Bowel Perforation POA Bacterial peritonitis Cholelithiasis Small Bowel Obstruction, Suspected Anastomotic Leak Bilious peritonitis s/p Diagnostic laparoscopy, abdominal washout, drain placement and diverting loop ileostomy creation Iron Deficiency anemia Diabetes Mellitus Type 2 POA Acute Kidney Injury POA Septic Shock POA Cirrhosis of liver POA Esophageal Varices Recent Robotic takedown of splenic flexure mobilization, robotic takedown of colovesical fistula with sigmoid colectomy and end-to-end anastomosis surgery PLAN: Bilious peritonitis status post Diagnostic laparoscopy, abdominal washout, drain placement and diverting loop ileostomy creation She is able to tolerate the clear liquid diet -Continue close monitoring of the patient -continue physical therapy -Monitor CHRIS drain output -Continues with high output from CHRIS but it is clear serous, most likely related to her ascites from her history of liver cirrhosis -Continue Lactated Ringer's at 75 ml/hr for volume resuscitation and electrolyte replacement -continue Zosyn [day 11] and fluconazole [day 11] -Patient has ongoing abdominal pain, currently awaiting for the clinical symptoms to improve for the discharge in 24-48 hrs. 07/25/25 -Flexeril 5 mg t.i.d. has been started by the Surgery team. -Hemoglobin has gradually trended down to 9.2 and planning to start her on IV Venofer. 07/26/25 -Advance diet to Soft diet -Probiotics and Fibers have been added for bloating. -As per the Surgery: Waiting for the symptoms to resolve and see if she can tolerate the advanced diet for proper discharge timeline. -Protonix IV increased to twice daily. * Patient could not tolerate soft diet, currently receiving liquid diet only. * Her WBC has trended up (11.3), we will closely monitor the patient * General Surgery team is following up the patient closely. * Patient reported pain after eating but no nausea or vomiting. She had lidocaine patch placed this morning. * Currently receiving Dilaudid 0.5 mg. * Abdominal ultrasound has been ordered for further assessment. * PT to continue ambulating patient * Continue emptying CHRIS drain every 3-4 hours to prevent large volume fluid loss, monitor output. * Albumin 25% as IV, 50ml administered on 07/28/2025. * Started on simethicone 80 mg q.6 per oral. 07/28/25 * Per surgery team, stoma is likely to be removed today. 07/29/25 * Blood pressure noted today is noted to be 98/54 mm Hg which is slightly low. * As per Dr. Adams, from Gastroenterology: No GI endoscopic intervention recommended at this time, we will defer to surgical recommendations. * Patient will be given 2 doses of Albumin 25% as IV today. * Morning Cortisol AM will be ordered to assess low blood pressure. Bacterial Peritonitis * Post Surgical patient with Bacterial peritonitis positive for ESBL * Culture and sensitivity shows susceptibility to Zosyn, Gentamicin and Meropenem. * Likely secondary to post-operative intraabdominal infection with risk of ongoing contamination. * Currently patient is on Zosyn (Day 11) * For her continuos pain she is started on Fentanyl 25mcg. CHRIS drain culture has beens sent. Based on the results of HIDA scan, CT chest will be planned. 07/31/25 Cholelithiasis * Patient complained of upper abdominal pain * Ultrasound abdomen showed: Cirrhotic-appearing liver * Cholelithiasis and biliary sludge with gallbladder distension and Small volume ascites. * Surgery is on the board and awaiting further recommendations. 07/29/25 * Currently awaiting the reports of HIDA scan. * Per Suregry: If consistent with cholecystitis recommendation will be for cholecystostomy tube placement. 07/31/25 Small Bowel Obstruction, Suspected * Patient complaints of abdominal pain which is 07/14 on intensity * Abdominal Xray showed: Dilated small bowel loops are seen in mid abdomen * Perform Serial abdominal exams * Pain management(avoid excess opioids if ileus is suspected) * Evaluate drain, bowel status * Monitor for resolution vs progression of Ileus/obstruction. 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 - CT abdominal pelvis w/contrast done on 07/20/2025 showed Free air in the upper abdomen is seen, suggesting perforated bowel vs post surgical changes. No obstruction. -underwent Diagnostic laparoscopy, abdominal washout, drain placement and diverting loop ileostomy creation for biliary peritonitis Iron Deficiency anemia * Hemoglobin has trended down from 9.7 g/dl to 9.0- 8.9 g/dl. 07/31/25 * Iron sucrose (venofer) has been ordered. * Anemia panel has been ordered. Results showed Iron 24L, %sat 16.3 and TIBC 147L. 07/30/25 * Recommend trending Hgb and transfuse as needed to goal Hgb >7. * Plan to initiate the patient on Venofer, her last dose of Venofer was 200 mg on 07/26/2025 * Iron level is 20L, % saturation 11.9, TIBC 167L, Ferritin 129. 07/25/25 Septic Shock -resolved -Her WBC is 8.8 today. 07/31/25 -WBC is gradually trending up from 8.3-7.3-11.1-11.8-9.2. 07/29/25 -Her WBC during the presentation was 21.2 and today its 7.3. 07/26/25 -lactic acid normal at 1.6 yesterday -blood and urine culture results are negative Acute Kidney Injury Resolved -Creatinine improved from 1.6-1.1-0.7-0.6-0.6-0.6-0.6. 07/29/25 -Initial FeNA is 0.1 %, probably secondary to dehydration and NSAIDs overuse. -initial Urine sodium is < 13 and urine creatinine is 132.17. -Avoid nephrotoxic agents, eg. NSAIDS. -Weight patient daily. -Monitor intake and output. Cirrhosis of liver -Patient has a past history of cirrhosis of liver. -Ammonia level was 33 which reduced from 40. 07/23/25. - Liver functions are within normal limits. AST 23, ALT 12 and ALP 108. - Avoid NSAIDs and high dose acetaminophen. -Maintain appropriate volume of the patient. * Patient has been started on Spironolactone 25 mg b.i.d. and Lasix 20 mg once daily. 07/25/25 Supportive measures -Maintain IV fluids, correct electrolytes -Serial abdominal exams -Sound Installation Worker on avoidance of NSAIDS and other related triggers. -Monitor Vitals and perform morning labs regularly Continue GI prophylaxis with Pantop Continue DVT prophylaxis with SCDs, we will avoid heparin due to history of allergies to porcine, we will coordinate with surgery consult on initiation of other anticoagulants ATTESTATION BY PHYSICIAN I have seen and examined the patient. I reviewed the documentation, medical decision making, and treatment plan as noted by the resident provider above. I agree with the findings and plan of care. Miguel Conley MD [facility] MD Jul 31, 2025 09:47
--- NOTE | 2025-07-31 10:08 | PN ---
NEPHROLOGY PROGRESS NOTE Date/Time Patient Seen: Jul 31, 2025 SUBJECTIVE: This is a 55-year-old female with a past medical history of diabetes mellitus type 2, liver cirrhosis, esophageal varices. He presented to the emergency room with chief complain of abdominal pain. CT of the abdomen showed moderate small bowel enteritis with free air in the upper abdomen, suggesting perforated bowel versus post surgical changes. No obs truction. S/p diagnostic laparoscopy, abdominal washout, drain placement and diverting loop ileostomy creation with CHRIS drain 10 Thai on 07/21 Pending HIDA scan results to evaluate gallbladder She was noted to have elevated BUN/creatinine We are consulted for renal failure Renal function and electrolytes are stable. Pending further surgery recommendations She was seen in the medial floor, in no acute distress No family at the bedside REVIEW OF SYSTEMS: GENERAL: Positive for abdominal pain and nausea NEUROLOGIC: Negative for any blurry vision, blind spots, double vision, facial asymmetry, dysphagia, dysarthria, hemiparesis, hemisensory deficits, vertigo, ataxia. HEENT: Negative for any head trauma, neck trauma, neck stiffness, photophobia, phonophobia, sinusitis, rhinitis. CARDIAC: Negative for any chest pain, dyspnea on exertion, paroxysmal nocturnal dyspnea, peripheral edema. PULMONARY: Negative for any shortness of breath, wheezing, COPD, or TB exposure. GASTROINTESTINAL: Negative for any abdominal pain, nausea, vomiting, bright red blood per rectum, melena. GENITOURINARY: Negative for any dysuria, hematuria, incontinence. INTEGUMENTARY: Negative for any rashes, cuts, insect bites. RHEUMATOLOGIC: Negative for any joint pains, photosensitive rashes, history of vasculitis or kidney problems. HEMATOLOGIC: Negative for any abnormal bruising, frequent infections or bleeding. Vital Signs (last 8hr) Date Time Temp Pulse Resp B/P (MAP) Pulse Ox O2 Delivery O2 Flow Rate FiO2 07/30/25 08:00 98.6 81 17 106/64 100 Room Air PHYSICAL EXAM: GENERAL: Alert and oriented x 3. No acute distress. Well-nourished. EYES: EOMI. Anicteric. HENT: Moist mucous membranes. No scleral icterus. No cervical lymphadenopathy. LUNGS: Clear to auscultation bilaterally. No accessory muscle use. CARDIOVASCULAR: Regular rate and rhythm. No murmur. No JVD. ABDOMEN: Soft, non-tender and non-distended. No palpable masses. EXTREMITIES: No edema. Non-tender SKIN: No rashes or lesions. Warm. NEUROLOGIC: No focal neurological deficits. CN II-XII grossly intact, but not individually tested. PSYCHIATRIC: Cooperative. Appropriate mood and affect. Current Medications Medications (Trade) Dose Ordered Sig/Gregory Route Start Time Stop Time Status Last Admin Dose Admin Albumin Human 100 ml @ 0 mls/hr ONCE IV 07/25/25 12:00 07/26/25 11:59 DC 07/25/25 13:43 100 MLS/HR Cyclobenzaprine HCl (Cyclobenzaprine HCl) 5 mg TID PO 07/25/25 14:00 07/26/25 14:00 DC 07/26/25 14:19 5 MG Fluconazole/ Sodium Chloride (DiFLUCan 200 MG/ NS 100 ML) 200 mg Q24H IVPB 07/21/25 21:00 08/20/25 20:59 07/25/25 20:47 200 MG Furosemide (LASix 20MG TAB) 20 mg DAILY PO 07/25/25 11:00 08/24/25 10:59 07/26/25 08:56 20 MG Insulin Human Regular (humuLIN R 100 UNIT/ML 3ML) INSULIN SLIDING SCAL... ACHS SQ 07/21/25 07:30 08/20/25 07:29 07/22/25 20:40 3 UNIT Lactated Ringer's 1,000 ml @ 75 mls/hr [id number] IV 07/21/25 00:00 07/21/25 13:17 DC 07/21/25 02:57 75 MLS/HR Lactated Ringer's 1,000 ml @ 75 mls/hr [id number] IV 07/21/25 13:30 07/24/25 11:09 DC 07/24/25 09:27 75 MLS/HR Lactobacillus Rhamnosus ([facility]) 1 each DAILY20 PO 07/26/25 20:00 08/25/25 19:59 Metronidazole/ Sodium Chloride (flaGYL) 500 mg Q8H IV 07/21/25 14:00 07/21/25 13:40 DC Norepinephrine 250 ml @ 0 mls/hr PROTOCOL IV 07/20/25 23:30 08/19/25 23:29 07/21/25 10:56 18.45 MLS/HR Pantoprazole Sodium (PROTonix 40MG INJ) 40 mg BID IV 07/26/25 21:00 08/20/25 08:59 Pantoprazole Sodium (PROTonix 40MG INJ) 40 mg DAILY IV 07/21/25 09:00 07/26/25 09:31 DC 07/26/25 08:55 40 MG Pharmacy Profile Note (Pharmacy Communication) 1 each ONCE MISC 07/21/25 15:30 07/21/25 15:16 DC Piperacillin Sod/ Tazobactam Sod 50 ml @ 200 mls/hr ONCE STAT IVPB 07/20/25 19:15 07/20/25 19:29 DC 07/20/25 20:32 200 MLS/HR Piperacillin Sod/ Tazobactam Sod (Zosyn 3.375gm+NS 50ml) 3.375 gm Q12H IV 07/21/25 00:00 07/31/25 00:00 07/26/25 12:10 3.375 GM Psyllium Hydrophilic Mucilloid (Metamucil) 1 tbs BID PO 07/26/25 21:00 08/25/25 20:59 Sodium Bicarbonate 150 meq/Sodium Chloride 1,150 ml @ 0 mls/hr Q0M IVP 07/21/25 14:00 07/26/25 09:31 DC Spironolactone (Aldactone 25mg) 25 mg BID PO 07/25/25 21:00 07/26/25 09:01 DC 07/26/25 08:56 25 MG Thiamine HCl (Vitamin B-1) 100 mg DAILY IVP 07/22/25 21:00 08/21/25 20:59 07/26/25 08:55 100 MG Thiamine HCl 100 mg/Sodium Chloride 50 ml @ 100 mls/hr Q24H IM 07/21/25 15:30 07/21/25 16:25 DC Vancomycin HCl (Vancomycin 1g/ 250ml Kit) 1 gm ONCE STAT IV 07/20/25 21:23 07/20/25 21:26 DC 07/20/25 22:06 1 GM Vasopressin 20 units/Sodium Chloride 100 ml @ 0 mls/hr PROTOCOL IV 07/21/25 00:30 08/20/25 00:29 07/21/25 00:10 9 MLS/HR LABORATORY: [ ] Hematology Labs: Test 07/31/25 03:49 Range/Units White Blood Count 8.8 4.8-10.8 K/uL Red Blood Count 2.96 L 4.00-5.50 MIL/uL Hemoglobin 8.9 L 12.0-16.0 g/dL Hematocrit 27.5 L 36-48 % Mean Corpuscular Volume 92.9 79-99 fL Mean Corpuscular Hemoglobin 30.1 27.0-33.0 pg Mean Corpuscular Hemoglobin Concent 32.4 32.0-36.0 g/dL Red Cell Distribution Width 17.7 H 11.0-15.5 % Platelet Count 217 130-400 K/uL Mean Platelet Volume 9.8 7.5-10.5 fL Nucleated Red Blood Cells 0.0 0.0-0.19 % Chemistry Labs: Test 07/31/25 05:19 07/31/25 03:49 07/30/25 16:24 07/30/25 13:35 Range/Units Whole Blood Glucose 92 70-110 MG/DL Sodium Level 133 L 136-145 mmol/L Potassium Level 3.7 3.5-5.1 mmol/L Chloride Level 101 101-111 mmol/L Carbon Dioxide Level 23 21-32 mmol/L Blood Urea Nitrogen 5 L 7-18 mg/dL Creatinine 0.5 0.5-1.0 mg/dL Glomerular Filtration Rate Calc 109 >90 mL/min Random Glucose 88 70-105 mg/dL Total Calcium 8.1 L 8.5-10.1 mg/dL Phosphorus Level 2.1 L 2.5-4.9 mg/dL Total Bilirubin 0.7 0.2-1.0 mg/dL Aspartate Amino Transf (AST/SGOT) 23 10-37 U/L Alanine Aminotransferase (ALT/SGPT) 9 L 12-78 U/L Alkaline Phosphatase 67 50-136 U/L Total Protein 5.4 L 6.0-8.3 g/dL Albumin 2.1 L 3.5-5.0 g/dL Bedside Glucose Comment Notified Nurse Iron Level 24 L 50-170 mcg/dL Total Iron Binding Capacity 147 L 250-450 mcg/dL Percent Iron Saturation 16.3 L 22-44 % Test 07/30/25 07:15 07/29/25 16:10 Range/Units Serum Osmolality 274 L 278-305 mOsm/kg Direct Bilirubin 0.4 H 0.0-0.3 mg/dL DIAGNOSTICS / RADIOLOGY: [place] [id number] [place], [place] [id number] IMAGING REPORT Signed PATIENT: DALLAS BUCHANAN MR#: [id number] : 1970 SEX: F AGE: 55 LOCATION: 4AH ORDER 10 STATUS: ADM IN REPORT#: [id number] SERVICE 09 REASON: ABD PAIN ORDERING PHYSICIAN: NIKKI MUNOZ NP PROCEDURE: ABD 1VW - ABD 1VW EXAM: CR Abdomen, 1 view. CLINICAL HISTORY: Pain. COMPARISON: None provided. FINDINGS: Dilated small bowel loops are seen in mid abdomen. There is a density in the pelvis which may represent a send drainage catheter. No free air is evident. No abnormal calcification. No aggressive appearing osseous lesion. IMPRESSION: Dilated small bowel loops are seen in mid abdomen. Density in the pelvis which may represent a send drainage catheter. /[place] DICTATED BY: TOBI LEAHY MD DATE: 07/29/251032 ELECTRONICALLY SIGNED BY: TOBI LEAHY MD DATE: 07/29/251032 PATIENT: DALLAS BUCHANAN MR#: [id number] : 1970 SEX: F AGE: 55 LOCATION: 4AH ORDER 18 STATUS: ADM IN REPORT#: [id number] SERVICE 15 REASON: Liver cirrhosis ORDERING PHYSICIAN: LISET DOUGLAS MD PROCEDURE: ABDOMEN - US ABDOMINAL COMPLETE EXAM: US Abdomen complete CLINICAL HISTORY: Liver cirrhosis TECHNIQUE: Real-time ultrasound of the abdomen (complete) with image documentation. COMPARISON: None provided. FINDINGS: LIVER: Liver measures 12.3 cm with a heterogeneous coarse echotexture. GALLBLADDER: Gallbladder contains stones and sludge. Gallbladder is distended. COMMON BILE DUCT: No dilation. PANCREAS: Pancreas not well-visualized due to overlying bowel gas KIDNEYS: Normal renal contours. No renal mass or calculus. No hydronephrosis. SPLEEN: Normal in size and echogenicity. No mass identified. AORTA: No aneurysm. IVC: Unremarkable as visualized. MISCELLANEOUS: Small amount of abdominal ascites. IMPRESSION: 1. Cirrhotic-appearing liver. 2. Cholelithiasis and biliary sludge with gallbladder distension. 3. Small volume ascites. /[place] DICTATED BY: CYNTHIA JULIAN MD DATE: 07/29/251055 ELECTRONICALLY SIGNED BY: CYNTHIA JULIAN MD DATE: 07/29/25 105 PATIENT: DALLAS BUCHANAN MR#: [id number] : 1970 SEX: F AGE: 55 LOCATION: 2BH ORDER 1108 STATUS: ADM IN REPORT#: [id number] SERVICE 110 REASON: sob ORDERING PHYSICIAN: PREET BOSTON MD PROCEDURE: CXR1VW - CHEST 1VW CHEST 1VW REASON: sob COMPARISON: Study from 07/21/2025 is available. FINDINGS: Single view of the chest was obtained. Lungs are clear. Heart size is normal. There is no pulmonary vascular congestion. There is a right-sided PIC catheter with tip in superior vena cava. There is a nasogastric tube with the tip in the fundus of the stomach. Mediastinum and bony thorax appear unremarkable. IMPRESSION: 1. No acute cardiopulmonary process 2. The support lines are in satisfactory position.. DICTATED BY: GREER FIORE MD DATE: 07/22/25 135 ELECTRONICALLY SIGNED BY: GREER FIORE MD DATE: 07/22/25 135 PATIENT: DALLAS BUCHANAN MR#: [id number] : 1970 SEX: F AGE: 55 LOCATION: 2BH ORDER 0100 STATUS: ADM IN REPORT#: [id number] SERVICE 0100 REASON: PICC LINE ORDERING PHYSICIAN: HEATHER LEACH APRN PROCEDURE: CXR1VW - CHEST 1VW EXAM: CR Chest, single view. CLINICAL HISTORY: PICC line COMPARISON: Prior same day chest radiograph. FINDINGS: Right-sided PICC catheter with tip in the cavoatrial junction. Subsegmental atelectasis in the right lower lobe. No evidence of pleural effusion or pneumothorax. The cardiomediastinal silhouette is within normal limits. No acute osseous abnormality. IMPRESSION: Right-sided PICC catheter with tip in the cavoatrial junction. Subsegmental atelectasis in the right lower lobe. No evidence of pleural effusion or pneumothorax. Compared to the prior study, there is interval placement of the right-sided PICC line and interval resolution of the subsegmental atelectasis in the left lower lobe. /[place] DICTATED BY: ELDON MILLER Jr., MD DATE: 07/21/25816 ELECTRONICALLY SIGNED BY: ELDON MILLER Jr., MD DATE: 07/21/25816 PATIENT: DALLAS BUCHANAN MR#: [id number] : 1970 SEX: F AGE: 55 LOCATION: [facility] ORDER 14 STATUS: [facility] REPORT#: [id number] SERVICE 12 REASON: CHEST PAIN/COUGH ORDERING PHYSICIAN: ALHAJI SHINE NP PROCEDURE: CXR1VW - CHEST 1VW EXAM: XR Chest, 1 View. CLINICAL HISTORY: 55 year old female with chest pain and cough. COMPARISON: None provided. FINDINGS: LUNGS: The lungs demonstrate evidence of atelectasis. PLEURAL SPACES: A small right pleural effusion is present. HEART: The heart size is normal. BONES: No acute osseous abnormality. IMPRESSION: 1. Small right pleural effusion and right lung base atelectasis. /[place] DICTATED BY: EDWGIE LEDESMA MD DATE: 07/20/252046 ELECTRONICALLY SIGNED BY: EDWIGE LEDESMA MD DATE: 07/20/252046 PATIENT: DALLAS BUCHANAN MR#: [id number] : 1970 SEX: F AGE: 55 LOCATION: [facility] ORDER 14 STATUS: REG ER REPORT#: [id number] SERVICE 12 REASON: Abdominal Pain ORDERING PHYSICIAN: ALHAJI SHINE NP PROCEDURE: ABD PEL W - CT ABDOMEN/PELVIS W/CONTRAST ADDENDUM REPORT ADDENDUM: Results were shared by telephone at 23:23 pm on 07-20-2025 and acknowledged by Pt nurse Ms. SHIN BOYKIN. /[place] EXAM: CT Abdomen and Pelvis with Intravenous Contrast CLINICAL HISTORY: 55-year-old female with abdominal pain. TECHNIQUE: Axial computed tomography images of the abdomen and pelvis with intravenous contrast. Dose reduction technique was used including one or more of the following: automated exposure control, adjustment of mA and kV according to patient size, and/or iterative reconstruction. CONTRAST: Omnipaque 350, 75 mL COMPARISON: None provided. FINDINGS: LUNG BASES: Atelectasis and scarring at the lung bases. LIVER: Unremarkable. GALLBLADDER AND BILE DUCTS: Tiny gallstone seen. PANCREAS: Unremarkable. SPLEEN: Unremarkable. ADRENAL GLANDS: Unremarkable. KIDNEYS, URETERS, AND BLADDER: Dueñas catheter seen in the bladder lumen. No hydronephrosis or nephrolithiasis. No ureteral calculi. STOMACH AND BOWEL: Edema or loops of small bowel suggesting moderate small bowel enteritis. Free air in the upper abdomen is seen, suggesting perforated bowel. No obstruction. APPENDIX: No CT evidence for appendicitis. PERITONEUM: Moderate ascites in the abdomen and pelvis. No free air under the diaphragm. LYMPH NODES: No lymphadenopathy. REPRODUCTIVE: Unremarkable as visualized. VASCULATURE: No aortic aneurysm. ABDOMINAL WALL AND SOFT TISSUES: There is air in the subcutaneous soft tissue seen anteriorly, suggesting recent postsurgical changes; please correlate with surgical history. BONES: No fracture or suspicious osseous abnormality. IMPRESSION: 1. Moderate small bowel enteritis with free air in the upper abdomen, suggesting perforated bowel versus post surgical changes. No obstruction. 2. Moderate ascites in the abdomen and pelvis. 3. Air in the subcutaneous soft tissue anteriorly, suggesting recent postsurgical changes; please correlate with surgical history. /[place] DICTATED BY: EDWIGE LEDESMA MD DATE: 07/20/252336 ELECTRONICALLY SIGNED BY: DATE: EXAM: CT Abdomen and Pelvis with Intravenous Contrast CLINICAL HISTORY: 55-year-old female with abdominal pain. TECHNIQUE: Axial computed tomography images of the abdomen and pelvis with intravenous contrast. Dose reduction technique was used including one or more of the following: automated exposure control, adjustment of mA and kV according to patient size, and/or iterative reconstruction. CONTRAST: Omnipaque 350, 75 mL COMPARISON: None provided. FINDINGS: LUNG BASES: Atelectasis and scarring at the lung bases. LIVER: Unremarkable. GALLBLADDER AND BILE DUCTS: Tiny gallstone seen. PANCREAS: Unremarkable. SPLEEN: Unremarkable. ADRENAL GLANDS: Unremarkable. KIDNEYS, URETERS, AND BLADDER: Dueñas catheter seen in the bladder lumen. No hydronephrosis or nephrolithiasis. No ureteral calculi. STOMACH AND BOWEL: Edema or loops of small bowel suggesting moderate small bowel enteritis. Free air in the upper abdomen is seen, suggesting perforated bowel. No obstruction. APPENDIX: No CT evidence for appendicitis. PERITONEUM: Moderate ascites in the abdomen and pelvis. No free air under the diaphragm. LYMPH NODES: No lymphadenopathy. REPRODUCTIVE: Unremarkable as visualized. VASCULATURE: No aortic aneurysm. ABDOMINAL WALL AND SOFT TISSUES: There is air in the subcutaneous soft tissue seen anteriorly, suggesting recent postsurgical changes; please correlate with surgical history. BONES: No fracture or suspicious osseous abnormality. IMPRESSION: 1. Moderate small bowel enteritis with free air in the upper abdomen, suggesting perforated bowel versus post surgical changes. No obstruction. 2. Moderate ascites in the abdomen and pelvis. 3. Air in the subcutaneous soft tissue anteriorly, suggesting recent postsurgical changes; please correlate with surgical history. /[place] DICTATED BY: EDWIGE LEDESMA MD DATE: 07/20/252317 ELECTRONICALLY SIGNED BY: EDWIGE LEDESMA MD DATE: 07/20/252317 ASSESSMENT: Acute kidney injury Bilious peritonitis 2 mm perforation of the colonic anastomosis Diabetes Mellitus Type 2 Septic Shock Cirrhosis of liver Oesophageal Varices PLAN: Labs, diagnostic, radiologic exams reviewed and interpreted by myself and supervising physician. We have reviewed external records in detail Pending further surgery recommendations Require close monitoring of renal function and electrolytes Order CBC, CMP, and electrolytes in am Continue with antibiotics BiPAP as necessary, for respiratory distress Monitor blood pressure adjust medication doses as needed Avoid hypotensive episodes May use Dilaudid 0.5 mg IV every 6 hours as needed for severe pain Monitor blood sugars Strict intake, output, and daily weight should be monitored Please renally adjust medications Avoid nephrotoxic and nonsteroidal drugs Avoid contrast if possible Will continue to monitor renal function, anemia, electrolytes Treatment plan discussed with patient Questions were answered We have discussed with the other team physicians in detail about the care plan We will continue to monitor the patient closely ATTESTATION BY PHYSICIAN I have seen and examined the patient. I reviewed the documentation, medical decision making, and treatment plan as noted by the mid-level provider above. I agree with the findings and plan of care. CIELO PORTILLO MD, [facility] Jul 31, 2025 10:08
[2025-07-31] MEDS ORDERED: 0.9%NACL 50ML IV SCH (11:30)
[2025-07-31] MEDS ORDERED: COMPOUND IV MISC 1 EACH IVSOLN MISC PRN (11:30)
[2025-07-31 12:00] VITALS: BP 103/46; PULSE 73; RESP 16; TEMP 98.2
[2025-07-31] MEDS: ZOSYN 3.375GM +NS 50ML IVPB SCH (12:15)
--- NOTE | 2025-07-31 15:44 | PN ---
INFECTIOUS DISEASE PROGRESS NOTE Date of Service: Jul 31, 2025 SUBJECTIVE: This 55 year old female patient who continues with the abdominal pain with the full liquid diet. The abdominal x-ray showed dilated small bowel loops in the mid abdomen and an abdominal ultrasound showed cholelithiasis and b iliary/gallbladder distention. A HIDA scan was done and pending interpretation. Denying nausea and vomiting. No fever this morning, temperature is 98.2. We will continue on Zosyn and fluconazole. Patient is participating well with physical therapy and ambulated in hallways using the walker. PHYSICAL EXAM EYES: Anicteric. Pupils equal and reactive. HENT: No oral thrush seen, moist Oral mucosa. NECK: Supple, no JVD or thyromegaly. LUNGS: Good air entry. No rales, no rhonchi. CARDIOVASCULAR: S1, S2 regular. No murmur heard. ABDOMEN: Soft, non tender, bowel sounds present, no organomegaly. CHRIS drain. Ileostomy creation. CENTRAL NERVOUS SYSTEM: Awake, alert, oriented x 3. SKIN: No rashes, no swelling. LYMPHATICS: No peripheral lymphadenopathy. MUSCULOSKELETAL: No joint swelling, erythema or tenderness. EXTREMITIES: No cyanosis or clubbing. BACK: No deformity, no pressure ulcer. GENITOURINARY: No dysuria or hematuria. Vital Sign (Last 12 Hours) 07/31/25 07/31/25 07/31/25 07/31/25 04:00 08:00 08:00 12:00 Temp 98.2 98.2 98.2 Pulse 81 81 73 Resp 18 16 16 B/P (MAP) 101/62 93/52 103/46 Pulse Ox 97 98 98 96 O2 Delivery Room Air Room Air* Room Air Room Air O2 Flow Rate 0 FiO2 21 21 21 Intake & Output (last 24hrs) 07/30/25 07/30/25 07/31/25 15:00 23:00 07:00 Intake Total 440.0 ml Output Total 290 ml 500 ml Balance -290 ml -60.0 ml LABS: Laboratory: Test 07/31/25 14:59 07/31/25 11:58 07/31/25 03:49 07/30/25 22:42 Range/Units Lactic Acid Level 1.5 0.8-2.5 mmol/L C-Reactive Protein, Quantitative 105.60 H 0.5-3.0 mg/L Whole Blood Glucose 107 70-110 MG/DL White Blood Count 8.8 4.8-10.8 K/uL Red Blood Count 2.96 L 4.00-5.50 MIL/uL Hemoglobin 8.9 L 12.0-16.0 g/dL Hematocrit 27.5 L 36-48 % Mean Corpuscular Volume 92.9 79-99 fL Mean Corpuscular Hemoglobin 30.1 27.0-33.0 pg Mean Corpuscular Hemoglobin Concent 32.4 32.0-36.0 g/dL Red Cell Distribution Width 17.7 H 11.0-15.5 % Platelet Count 217 130-400 K/uL Mean Platelet Volume 9.8 7.5-10.5 fL Nucleated Red Blood Cells 0.0 0.0-0.19 % Sodium Level 133 L 136-145 mmol/L Potassium Level 3.7 3.5-5.1 mmol/L Chloride Level 101 101-111 mmol/L Carbon Dioxide Level 23 21-32 mmol/L Blood Urea Nitrogen 5 L 7-18 mg/dL Creatinine 0.5 0.5-1.0 mg/dL Glomerular Filtration Rate Calc 109 >90 mL/min Random Glucose 88 70-105 mg/dL Total Calcium 8.1 L 8.5-10.1 mg/dL Phosphorus Level 2.1 L 2.5-4.9 mg/dL Total Bilirubin 0.7 0.2-1.0 mg/dL Aspartate Amino Transf (AST/SGOT) 23 10-37 U/L Alanine Aminotransferase (ALT/SGPT) 9 L 12-78 U/L Alkaline Phosphatase 67 50-136 U/L Total Protein 5.4 L 6.0-8.3 g/dL Albumin 2.1 L 3.5-5.0 g/dL Urine Random Sodium 60 40-220 mmol/l Urine Random Potassium 20 L 25-125 mmol/L Urine Random Chloride 72 L 110-250 mmol/L Test 07/30/25 16:24 07/30/25 13:35 07/30/25 07:15 07/29/25 16:10 Range/Units Bedside Glucose Comment Notified Nurse Iron Level 24 L 50-170 mcg/dL Total Iron Binding Capacity 147 L 250-450 mcg/dL Percent Iron Saturation 16.3 L 22-44 % Serum Osmolality 274 L 278-305 mOsm/kg Direct Bilirubin 0.4 H 0.0-0.3 mg/dL ASSESSMENT: Hypoxic respiratory failure requiring oxygen support. Septic shock. Generalized peritonitis with ESBL and E coli infection. Infection with multidrug resistant organism. Abdominal pain. Hypoalbuminemia. Suspected bowel perforation, s/p diagnostic laparoscopy, abdominal washout, ileostomy creation and CHRIS drain placement on 07/21/2025. Leukocytosis, resolved. Acute renal failure, resolved. Diabetes mellitus. Recent colovesical fistula repair with sigmoid colon resection and anastomosis on 07/09/2025 PLAN: Continue Zosyn. Continue fluconazole. Continue pain management. Avoid nephrotoxic medications. Continue GI prophylaxis. Continue antidiabetics. Continue physical therapy. Patient pending a HIDA scan results. This case was reviewed and discussed with my supervising physician Dr. Roger and the above assessment and plan was formulated and agreed upon. ATTESTATION BY PHYSICIAN I have seen and examined the patient. I reviewed the documentation, medical decision making, and treatment plan as noted by the mid-level provider above. I agree with the findings and plan of care. AMIE ROGER MD, [facility] Jul 31, 2025 15:44
[2025-07-31 16:00] VITALS: BP 112/78; PULSE 87; RESP 16; TEMP 97.9
--- NOTE | 2025-07-31 17:06 | PN ---
GENERAL SURGERY PROGRESS NOTE Date/Time Patient Seen: [ ] Interval History: [55-year-old female, postop day #10, diagnostic laparoscopy, abdominal washout, drain placement and diverting loop ileostomy creation by Dr. Gann Patient reports that she is having epigastric and right upper quadrant abdominal pain after eating. Denies nausea and vomiting. This is on top of her generalized abdominal pain. She has taking Dilaudid IV every 4 hours I told her that HIDA scan is currently pending CHRIS drain is serous 190 cc in last24 hours Current Medications Medications (Trade) Dose Ordered Sig/Gregory Route Start Time Stop Time Status Last Admin Dose Admin Albumin Human 100 ml @ 0 mls/hr ONCE IV 07/25/25 12:00 07/26/25 11:59 DC 07/25/25 13:43 100 MLS/HR Clotrimazole (Lotrimin) 1 GM BID TP 07/29/25 21:00 08/28/25 20:59 07/31/25 08:16 1 GM Cyclobenzaprine HCl (Cyclobenzaprine HCl) 5 mg TID PO 07/25/25 14:00 07/26/25 14:00 DC 07/26/25 14:19 5 MG Fentanyl (DURAgesic 25 MCG/HR PATCH) 25 mcg Q72H TD 07/31/25 14:30 07/31/25 14:44 DC Fluconazole/ Sodium Chloride (DiFLUCan 200 MG/ NS 100 ML) 200 mg Q24H IVPB 07/21/25 21:00 08/20/25 20:59 07/30/25 19:43 200 MG Furosemide (LASix 20MG TAB) 20 mg DAILY PO 07/25/25 11:00 08/24/25 10:59 07/29/25 08:21 20 MG Gabapentin (NEURontin 100 mg CAP) 100 mg TID PO 07/29/25 14:00 08/28/25 13:59 07/31/25 13:36 100 MG Insulin Human Regular (humuLIN R 100 UNIT/ML 3ML) INSULIN SLIDING SCAL... ACHS SQ 07/21/25 07:30 08/20/25 07:29 07/22/25 20:40 3 UNIT Lactated Ringer's 1,000 ml @ 75 mls/hr [id number] IV 07/21/25 00:00 07/21/25 13:17 DC 07/21/25 02:57 75 MLS/HR Lactated Ringer's 1,000 ml @ 75 mls/hr [id number] IV 07/21/25 13:30 07/24/25 11:09 DC 07/24/25 09:27 75 MLS/HR Lactobacillus Rhamnosus ([facility]) 1 each DAILY20 PO 07/26/25 20:00 08/25/25 19:59 07/30/25 19:43 1 EACH Lidocaine (Lidoderm Patch 5%) 1 patch DAILY TP 07/28/25 09:00 08/27/25 08:59 07/31/25 08:13 1 PATCH Metronidazole/ Sodium Chloride (flaGYL) 500 mg Q8H IV 07/21/25 14:00 07/21/25 13:40 DC Norepinephrine 250 ml @ 0 mls/hr PROTOCOL IV 07/20/25 23:30 08/19/25 23:29 07/21/25 10:56 18.45 MLS/HR Pantoprazole Sodium (PROTonix 40MG INJ) 40 mg BID IV 07/26/25 21:00 08/20/25 08:59 07/31/25 08:13 40 MG Pantoprazole Sodium (PROTonix 40MG INJ) 40 mg DAILY IV 07/21/25 09:00 07/26/25 09:31 DC 07/26/25 08:55 40 MG Pharmacy Profile Note (Pharmacy Communication) 1 each ONCE MISC 07/21/25 15:30 07/21/25 15:16 DC Piperacillin Sod/ Tazobactam Sod 50 ml @ 200 mls/hr ONCE STAT IVPB 07/20/25 19:15 07/20/25 19:29 DC 07/20/25 20:32 200 MLS/HR Piperacillin Sod/ Tazobactam Sod (Zosyn 3.375gm+NS 50ml) 3.375 gm Q12H IV 07/21/25 00:00 07/31/25 00:00 DC 07/30/25 23:55 3.375 GM Piperacillin Sod/ Tazobactam Sod (Zosyn 3.375gm+NS 50ml) 3.375 gm Q8H IVPB 07/31/25 11:30 08/10/25 11:29 07/31/25 12:15 3.375 GM Psyllium Hydrophilic Mucilloid (Metamucil) 1 tbs BID PO 07/26/25 21:00 08/25/25 20:59 07/31/25 08:13 1 TBS Simethicone (Mylicon) 80 mg Q6H6 PO 07/27/25 12:00 08/26/25 11:59 07/31/25 12:15 80 MG Sodium Bicarbonate 150 meq/Sodium Chloride 1,150 ml @ 0 mls/hr Q0M IVP 07/21/25 14:00 07/26/25 09:31 DC Sodium Chloride (NS 50ml) 50 ml AD IV 07/31/25 11:30 07/31/25 11:12 DC Spironolactone (Aldactone 25mg) 25 mg BID PO 07/25/25 21:00 07/26/25 09:01 DC 07/26/25 08:56 25 MG Sucralfate (Carafate) 1 gm ACHS PO 07/29/25 21:00 08/28/25 20:59 07/31/25 16:28 1 GM Thiamine HCl (Vitamin B-1) 100 mg DAILY IVP 07/22/25 21:00 08/21/25 20:59 07/31/25 08:12 100 MG Thiamine HCl 100 mg/Sodium Chloride 50 ml @ 100 mls/hr Q24H IM 07/21/25 15:30 07/21/25 16:25 DC Vancomycin HCl (Vancomycin 1g/ 250ml Kit) 1 gm ONCE STAT IV 07/20/25 21:23 07/20/25 21:26 DC 07/20/25 22:06 1 GM Vasopressin 20 units/Sodium Chloride 100 ml @ 0 mls/hr PROTOCOL IV 07/21/25 00:30 08/20/25 00:29 07/21/25 00:10 9 MLS/HR Physical Examination: GENERAL: [No acute distress.] HEAD: [Normal with no signs of head trauma.] EYES: [PERRLA, EOMI, conjunctiva and sclera normal.] ENT: [Hearing grossly intact, normal oropharynx.] NECK: [Supple without JVD. There is no tenderness, lymphadenopathy, or masses. No thyromegaly. Normal carotid upstrokes without bruits.] LUNGS: [Clear breath sounds bilaterally. There are right basilar rales one third of the way up the chest. No wheezes, or rhonchi.] HEART: [Normal rate and rhythm. Normal S1 and S2 without mumurs, gallop or rub.] VASC: [Peripheral pulses +2 bilaterally.] ABD: [Bowel sounds normal, soft, obese some right upper quadrant tenderness, incisions are clean dry and intact : [Not examined] LYMPH: [No lymphadenopathy noted.] EXT: [No clubbing, cyanosis or edema.] SKIN: [No rashes or lesions noted.] NEURO: [Awake, alert, and oriented x3. No focal sensory or strength deficits noted.] Vital Signs (last 8hr) Date Time Temp Pulse Resp B/P (MAP) Pulse Ox O2 Delivery O2 Flow Rate FiO2 07/31/25 12:00 98.2 73 16 103/46 96 Room Air 21 Laboratory: [ ] Hematology Labs: Test 07/31/25 03:49 Range/Units White Blood Count 8.8 4.8-10.8 K/uL Red Blood Count 2.96 L 4.00-5.50 MIL/uL Hemoglobin 8.9 L 12.0-16.0 g/dL Hematocrit 27.5 L 36-48 % Mean Corpuscular Volume 92.9 79-99 fL Mean Corpuscular Hemoglobin 30.1 27.0-33.0 pg Mean Corpuscular Hemoglobin Concent 32.4 32.0-36.0 g/dL Red Cell Distribution Width 17.7 H 11.0-15.5 % Platelet Count 217 130-400 K/uL Mean Platelet Volume 9.8 7.5-10.5 fL Nucleated Red Blood Cells 0.0 0.0-0.19 % Chemistry Labs: Test 07/31/25 16:36 07/31/25 14:59 07/31/25 03:49 07/30/25 16:24 Range/Units Whole Blood Glucose 116 H 70-110 MG/DL Lactic Acid Level 1.5 0.8-2.5 mmol/L C-Reactive Protein, Quantitative 105.60 H 0.5-3.0 mg/L Sodium Level 133 L 136-145 mmol/L Potassium Level 3.7 3.5-5.1 mmol/L Chloride Level 101 101-111 mmol/L Carbon Dioxide Level 23 21-32 mmol/L Blood Urea Nitrogen 5 L 7-18 mg/dL Creatinine 0.5 0.5-1.0 mg/dL Glomerular Filtration Rate Calc 109 >90 mL/min Random Glucose 88 70-105 mg/dL Total Calcium 8.1 L 8.5-10.1 mg/dL Phosphorus Level 2.1 L 2.5-4.9 mg/dL Total Bilirubin 0.7 0.2-1.0 mg/dL Aspartate Amino Transf (AST/SGOT) 23 10-37 U/L Alanine Aminotransferase (ALT/SGPT) 9 L 12-78 U/L Alkaline Phosphatase 67 50-136 U/L Total Protein 5.4 L 6.0-8.3 g/dL Albumin 2.1 L 3.5-5.0 g/dL Bedside Glucose Comment Notified Nurse Test 07/30/25 13:35 07/30/25 07:15 Range/Units Iron Level 24 L 50-170 mcg/dL Total Iron Binding Capacity 147 L 250-450 mcg/dL Percent Iron Saturation 16.3 L 22-44 % Serum Osmolality 274 L 278-305 mOsm/kg Diagnostics / Radiology: HIDA is pending Impression and Plan: [55-year-old female, postop day #10., diagnostic laparoscopy, abdominal washout, drain placement and diverting loop ileostomy creation by Dr. Gann Follow up HIDA scan. If the HIDA scan is positive for acute cholecystitis then she will need a cholecystostomy tube. If the HIDA scan is negative I did tell the daughter and the patient at the bedside maybe this is possibly gastritis since she is having upper abdominal pain shortly after she eats I also did tell her that ascites with the cirrhosis can cause generalized abdominal pressure and pain Since she is able to take pills I did start her on Sallis. I did encourage her to take that and to use the Dilaudid only for breakthrough. I encouraged ambulation Would also recommend starting PPN or TPN since she has had little intake for the last 10 days TAMMI DENG MD Jul 31, 2025 17:06
[2025-07-31] MEDS: HYDROcodone/APAP 5/325 1 TAB TABLET PO PRN (17:53)
[2025-07-31 22:00] VITALS: BP 96/100; PULSE 88; RESP 20; TEMP 98.3
[2025-08-01] VITALS: BP 98/63; PULSE 89; RESP 18; TEMP 98.1
[2025-08-01 05:26] LABS: IMMATURE GRANULOCYTE ABSOLUTE 0.10 K/uL (0-1); NUCLEATED RED BLOOD CELLS 0.0 % (0.0-0.19); PLATELET COUNT (AUTO) 200 K/uL (130-400); RED BLOOD CELL COUNT(AUTO) 2.97 MIL/uL (4.00-5.50); RED CELL DISTRIBUTION WIDTH 17.5 % (11.0-15.5); WHITE BLOOD COUNT (AUTO) 7.7 K/uL (4.8-10.8)
[2025-08-01 05:53] LABS: CREATININE 0.6 mg/dL (0.5-1.0); GLOMERULAR FILTR. RATE CALC 105.0 mL/min (>90); GLUCOSE,RANDOM 85.0 mg/dL (70-105); SODIUM SERUM 136.0 mmol/L (136-145); UREA NITROGEN, BLOOD 5.0 mg/dL (7-18)
[2025-08-01 07:35] LABS: BODY FLUID RBC 1280 /cu. mm.; BODY FLUID WBC 865 /cu. mm.
[2025-08-01 08:00] VITALS: BP 87/54; PULSE 83; RESP 18; TEMP 98.2
[2025-08-01 08:10] VITALS: O2SAT 94
[2025-08-01 08:52] LABS: APPEARANCE BODY FLUID CLOUDY (CLEAR); COLOR,BODY FLUID YELLOW (LT YELLOW); SPECIMENTYPE,BODY FLUID JP DRAIN; TOTAL VOLUME,BODY FLUID 35 mL
[2025-08-01 08:57] LABS: BF MACROPHAGE 3; BF MESOTHELIAL 2 %
[2025-08-01 08:58] LABS: BF LYMPHOCYTE 72 %; BF MONOCYTE 8 %; BF NEUTROPHIL 15.0 %
--- NOTE | 2025-08-01 09:11 | HMCIMG ---
EXAM: HIDA scan. INDICATION: Severe RUQ Pain to rule out cholecystitis. REFERENCE EXAMINATION: [facility] July 29, 2025. TECHNIQUE: Sequential images of the abdomen were obtained in the anterior projection after IV administration of 6.0 mCi of Tc99m Mebrofenin. FINDINGS: Tracer activity throughout the liver is homogeneous without focal defects. There is prompt excretion of the pharmaceutical into the bile ducts and into the small bowel, without evidence of obstruction. There is no visualization of the gallbladder at the conclusion of the examination. IMPRESSION: Scintigraphic findings are compatible with acute cholecystitis. /Braden
--- NOTE | 2025-08-01 09:35 | PN ---
NEPHROLOGY PROGRESS NOTE Date/Time Patient Seen: Aug 01, 2025 SUBJECTIVE: This is a 55-year-old female with a past medical history of diabetes mellitus type 2, liver cirrhosis, esophageal varices. He presented to the emergency room with chief complain of abdominal pain. CT of the abdomen showed moderate small bowel enteritis with free air in the upper abdomen, suggesting perforated bowel versus post surgical changes. No o bstruction. S/p diagnostic laparoscopy, abdominal washout, drain placement and diverting loop ileostomy creation with CHRIS drain 10 Kazakh on 07/21 HIDA scan results were noted, pending further surgery recommendations She was noted to have elevated BUN/creatinine We are consulted for renal failure Renal function and electrolytes are stable. Pending further surgery recommendations She was seen in the medial floor, in no acute distress No family at the bedside REVIEW OF SYSTEMS: GENERAL: Positive for abdominal pain and nausea NEUROLOGIC: Negative for any blurry vision, blind spots, double vision, facial asymmetry, dysphagia, dysarthria, hemiparesis, hemisensory deficits, vertigo, ataxia. HEENT: Negative for any head trauma, neck trauma, neck stiffness, photophobia, phonophobia, sinusitis, rhinitis. CARDIAC: Negative for any chest pain, dyspnea on exertion, paroxysmal nocturnal dyspnea, peripheral edema. PULMONARY: Negative for any shortness of breath, wheezing, COPD, or TB exposure. GASTROINTESTINAL: Negative for any abdominal pain, nausea, vomiting, bright red blood per rectum, melena. GENITOURINARY: Negative for any dysuria, hematuria, incontinence. INTEGUMENTARY: Negative for any rashes, cuts, insect bites. RHEUMATOLOGIC: Negative for any joint pains, photosensitive rashes, history of vasculitis or kidney problems. HEMATOLOGIC: Negative for any abnormal bruising, frequent infections or bleeding. Vital Signs (last 8hr) Date Time Temp Pulse Resp B/P (MAP) Pulse Ox O2 Delivery O2 Flow Rate FiO2 08/01/25 08:00 98.2 83 18 87/54 94 Room Air 21 PHYSICAL EXAM: GENERAL: Alert and oriented x 3. No acute distress. Well-nourished. EYES: EOMI. Anicteric. HENT: Moist mucous membranes. No scleral icterus. No cervical lymphadenopathy. LUNGS: Clear to auscultation bilaterally. No accessory muscle use. CARDIOVASCULAR: Regular rate and rhythm. No murmur. No JVD. ABDOMEN: Soft, non-tender and non-distended. No palpable masses. EXTREMITIES: No edema. Non-tender SKIN: No rashes or lesions. Warm. NEUROLOGIC: No focal neurological deficits. CN II-XII grossly intact, but not individually tested. PSYCHIATRIC: Cooperative. Appropriate mood and affect. Current Medications Medications (Trade) Dose Ordered Sig/Gregory Route Start Time Stop Time Status Last Admin Dose Admin Albumin Human 100 ml @ 0 mls/hr ONCE IV 07/25/25 12:00 07/26/25 11:59 DC 07/25/25 13:43 100 MLS/HR Cyclobenzaprine HCl (Cyclobenzaprine HCl) 5 mg TID PO 07/25/25 14:00 07/26/25 14:00 DC 07/26/25 14:19 5 MG Fluconazole/ Sodium Chloride (DiFLUCan 200 MG/ NS 100 ML) 200 mg Q24H IVPB 07/21/25 21:00 08/20/25 20:59 07/25/25 20:47 200 MG Furosemide (LASix 20MG TAB) 20 mg DAILY PO 07/25/25 11:00 08/24/25 10:59 07/26/25 08:56 20 MG Insulin Human Regular (humuLIN R 100 UNIT/ML 3ML) INSULIN SLIDING SCAL... ACHS SQ 07/21/25 07:30 08/20/25 07:29 07/22/25 20:40 3 UNIT Lactated Ringer's 1,000 ml @ 75 mls/hr [id number] IV 07/21/25 00:00 07/21/25 13:17 DC 07/21/25 02:57 75 MLS/HR Lactated Ringer's 1,000 ml @ 75 mls/hr [id number] IV 07/21/25 13:30 07/24/25 11:09 DC 07/24/25 09:27 75 MLS/HR Lactobacillus Rhamnosus ([facility]) 1 each DAILY20 PO 07/26/25 20:00 08/25/25 19:59 Metronidazole/ Sodium Chloride (flaGYL) 500 mg Q8H IV 07/21/25 14:00 07/21/25 13:40 DC Norepinephrine 250 ml @ 0 mls/hr PROTOCOL IV 07/20/25 23:30 08/19/25 23:29 07/21/25 10:56 18.45 MLS/HR Pantoprazole Sodium (PROTonix 40MG INJ) 40 mg BID IV 07/26/25 21:00 08/20/25 08:59 Pantoprazole Sodium (PROTonix 40MG INJ) 40 mg DAILY IV 07/21/25 09:00 07/26/25 09:31 DC 07/26/25 08:55 40 MG Pharmacy Profile Note (Pharmacy Communication) 1 each ONCE MISC 07/21/25 15:30 07/21/25 15:16 DC Piperacillin Sod/ Tazobactam Sod 50 ml @ 200 mls/hr ONCE STAT IVPB 07/20/25 19:15 07/20/25 19:29 DC 07/20/25 20:32 200 MLS/HR Piperacillin Sod/ Tazobactam Sod (Zosyn 3.375gm+NS 50ml) 3.375 gm Q12H IV 07/21/25 00:00 07/31/25 00:00 07/26/25 12:10 3.375 GM Psyllium Hydrophilic Mucilloid (Metamucil) 1 tbs BID PO 07/26/25 21:00 08/25/25 20:59 Sodium Bicarbonate 150 meq/Sodium Chloride 1,150 ml @ 0 mls/hr Q0M IVP 07/21/25 14:00 07/26/25 09:31 DC Spironolactone (Aldactone 25mg) 25 mg BID PO 07/25/25 21:00 07/26/25 09:01 DC 07/26/25 08:56 25 MG Thiamine HCl (Vitamin B-1) 100 mg DAILY IVP 07/22/25 21:00 08/21/25 20:59 07/26/25 08:55 100 MG Thiamine HCl 100 mg/Sodium Chloride 50 ml @ 100 mls/hr Q24H IM 07/21/25 15:30 07/21/25 16:25 DC Vancomycin HCl (Vancomycin 1g/ 250ml Kit) 1 gm ONCE STAT IV 07/20/25 21:23 07/20/25 21:26 DC 07/20/25 22:06 1 GM Vasopressin 20 units/Sodium Chloride 100 ml @ 0 mls/hr PROTOCOL IV 07/21/25 00:30 08/20/25 00:29 07/21/25 00:10 9 MLS/HR LABORATORY: [ ] Hematology Labs: Test 08/01/25 05:13 Range/Units White Blood Count 7.7 4.8-10.8 K/uL Red Blood Count 2.97 L 4.00-5.50 MIL/uL Hemoglobin 8.9 L 12.0-16.0 g/dL Hematocrit 27.8 L 36-48 % Mean Corpuscular Volume 93.6 79-99 fL Mean Corpuscular Hemoglobin 30.0 27.0-33.0 pg Mean Corpuscular Hemoglobin Concent 32.0 32.0-36.0 g/dL Red Cell Distribution Width 17.5 H 11.0-15.5 % Platelet Count 200 130-400 K/uL Mean Platelet Volume 9.5 7.5-10.5 fL Immature Granulocyte % (Auto) 1.3 H 0-1 % Neutrophils (%) (Auto) 75.5 40.0-77.0 % Lymphocytes (%) (Auto) 8.8 L 21.0-51.0 % Monocytes (%) (Auto) 12.5 3.0-13.0 % Eosinophils (%) (Auto) 1.4 0.0-8.0 % Basophils (%) (Auto) 0.5 0.0-5.0 % Neutrophils # (Auto) 5.8 1.8-7.7 K/uL Lymphocytes # (Auto) 0.7 L 1.0-4.8 K/uL Monocytes # (Auto) 1.0 0.1-1.0 K/uL Eosinophils # (Auto) 0.11 0.00-0.70 K/uL Basophils # (Auto) 0.04 0.00-0.20 K/uL Absolute Immature Granulocyte (auto 0.10 0-1 K/uL Nucleated Red Blood Cells 0.0 0.0-0.19 % Chemistry Labs: Test 08/01/25 05:22 08/01/25 05:13 07/31/25 14:59 07/31/25 03:49 Range/Units Whole Blood Glucose 88 70-110 MG/DL Sodium Level 136 136-145 mmol/L Potassium Level 4.0 3.5-5.1 mmol/L Chloride Level 105 101-111 mmol/L Carbon Dioxide Level 22 21-32 mmol/L Blood Urea Nitrogen 5 L 7-18 mg/dL Creatinine 0.6 0.5-1.0 mg/dL Glomerular Filtration Rate Calc 105 >90 mL/min Random Glucose 85 70-105 mg/dL Total Calcium 7.9 L 8.5-10.1 mg/dL Magnesium Level 1.70 L 1.80-2.40 mg/dL Lactic Acid Level 1.5 0.8-2.5 mmol/L C-Reactive Protein, Quantitative 105.60 H 0.5-3.0 mg/L Phosphorus Level 2.1 L 2.5-4.9 mg/dL Total Bilirubin 0.7 0.2-1.0 mg/dL Aspartate Amino Transf (AST/SGOT) 23 10-37 U/L Alanine Aminotransferase (ALT/SGPT) 9 L 12-78 U/L Alkaline Phosphatase 67 50-136 U/L Total Protein 5.4 L 6.0-8.3 g/dL Albumin 2.1 L 3.5-5.0 g/dL Test 07/30/25 16:24 07/30/25 13:35 Range/Units Bedside Glucose Comment Notified Nurse Iron Level 24 L 50-170 mcg/dL Total Iron Binding Capacity 147 L 250-450 mcg/dL Percent Iron Saturation 16.3 L 22-44 % DIAGNOSTICS / RADIOLOGY: [place] [address] IMAGING REPORT Signed PATIENT: DALLAS BUCHANAN MR#: [id number] : 1970 SEX: F AGE: 55 [facility]: [facility] ORDER 1524 STATUS: ADM IN REPORT#: [id number] SERVICE 1523 REASON: cholecystitis ORDERING PHYSICIAN: EBNEDICTO OBRIEN Jr. PROCEDURE: HIDA PHARM - NM HIDA/HEPATOBILI W/ PHARMACO EXAM: HIDA scan. INDICATION: Severe RUQ Pain to rule out cholecystitis. REFERENCE EXAMINATION: [facility] July 29, 2025. TECHNIQUE: Sequential images of the abdomen were obtained in the anterior projection after IV administration of 6.0 mCi of Tc99m Mebrofenin. FINDINGS: Tracer activity throughout the liver is homogeneous without focal defects. There is prompt excretion of the pharmaceutical into the bile ducts and into the small bowel, without evidence of obstruction. There is no visualization of the gallbladder at the conclusion of the examination. IMPRESSION: Scintigraphic findings are compatible with acute cholecystitis. /[place] DICTATED BY: ELDON MILLER Jr., MD DATE: 08/01/25 1011 ELECTRONICALLY SIGNED BY: ELDON MILLER Jr., MD DATE: 08/01/25 1011 PATIENT: DALLAS BUCHANAN MR#: [id number] : 1970 SEX: F AGE: 55 LOCATION: [facility] ORDER 10 STATUS: ADM IN REPORT#: [id number] SERVICE 09 REASON: ABD PAIN ORDERING PHYSICIAN: NIKKI MUNOZ NP PROCEDURE: ABD 1VW - ABD 1VW EXAM: CR Abdomen, 1 view. CLINICAL HISTORY: Pain. COMPARISON: None provided. FINDINGS: Dilated small bowel loops are seen in mid abdomen. There is a density in the pelvis which may represent a send drainage catheter. No free air is evident. No abnormal calcification. No aggressive appearing osseous lesion. IMPRESSION: Dilated small bowel loops are seen in mid abdomen. Density in the pelvis which may represent a send drainage catheter. /[facility] DICTATED BY: TOBI LEAHY MD DATE: 07/29/25 1033 ELECTRONICALLY SIGNED BY: TOBI LEAHY MD DATE: 07/29/25 103 PATIENT: DALLAS BUCHANAN MR#: [id number] : 1970 SEX: F AGE: 55 LOCATION: [facility] ORDER 18 STATUS: ADM IN REPORT#: [id number] SERVICE 15 REASON: Liver cirrhosis ORDERING PHYSICIAN: LISET DOUGLAS MD PROCEDURE: ABDOMEN - US ABDOMINAL COMPLETE EXAM: US Abdomen complete CLINICAL HISTORY: Liver cirrhosis TECHNIQUE: Real-time ultrasound of the abdomen (complete) with image documentation. COMPARISON: None provided. FINDINGS: LIVER: Liver measures 12.3 cm with a heterogeneous coarse echotexture. GALLBLADDER: Gallbladder contains stones and sludge. Gallbladder is distended. COMMON BILE DUCT: No dilation. PANCREAS: Pancreas not well-visualized due to overlying bowel gas KIDNEYS: Normal renal contours. No renal mass or calculus. No hydronephrosis. SPLEEN: Normal in size and echogenicity. No mass identified. AORTA: No aneurysm. IVC: Unremarkable as visualized. MISCELLANEOUS: Small amount of abdominal ascites. IMPRESSION: 1. Cirrhotic-appearing liver. 2. Cholelithiasis and biliary sludge with gallbladder distension. 3. Small volume ascites. /[place] DICTATED BY: CYNTHIA JULIAN MD DATE: 07/29/251055 ELECTRONICALLY SIGNED BY: CYNTHIA JULIAN MD DATE: 07/29/25 105 PATIENT: DALLAS BUCHANAN MR#: [id number] : 1970 SEX: F AGE: 55 LOCATION: [facility] ORDER 1108 STATUS: ADM IN REPORT#: [id number] SERVICE 1106 REASON: sob ORDERING PHYSICIAN: PREET BOSTON MD PROCEDURE: CXR1VW - CHEST 1VW CHEST 1VW REASON: sob COMPARISON: Study from 07/21/2025 is available. FINDINGS: Single view of the chest was obtained. Lungs are clear. Heart size is normal. There is no pulmonary vascular congestion. There is a right-sided PIC catheter with tip in superior vena cava. There is a nasogastric tube with the tip in the fundus of the stomach. Mediastinum and bony thorax appear unremarkable. IMPRESSION: 1. No acute cardiopulmonary process 2. The support lines are in satisfactory position.. DICTATED BY: GREER FIORE MD DATE: 07/22/25 1350 ELECTRONICALLY SIGNED BY: GREER FIORE MD DATE: 07/22/25 1355 PATIENT: DALLAS BUCHANAN MR#: [id number] : 1970 SEX: F AGE: 55 LOCATION: [facility] ORDER STATUS: ADM IN REPORT#: [id number] SERVICE REASON: PICC LINE ORDERING PHYSICIAN: HEATHER LEACH APRN PROCEDURE: CXR1VW - CHEST 1VW EXAM: CR Chest, single view. CLINICAL HISTORY: PICC line COMPARISON: Prior same day chest radiograph. FINDINGS: Right-sided PICC catheter with tip in the cavoatrial junction. Subsegmental atelectasis in the right lower lobe. No evidence of pleural effusion or pneumothorax. The cardiomediastinal silhouette is within normal limits. No acute osseous abnormality. IMPRESSION: Right-sided PICC catheter with tip in the cavoatrial junction. Subsegmental atelectasis in the right lower lobe. No evidence of pleural effusion or pneumothorax. Compared to the prior study, there is interval placement of the right-sided PICC line and interval resolution of the subsegmental atelectasis in the left lower lobe. /[place] DICTATED BY: ELDON MILLER Jr., MD DATE: 07/21/25816 ELECTRONICALLY SIGNED BY: ELDON MILLER Jr., MD DATE: 07/21/25816 PATIENT: DALLAS BUCHANAN MR#: [id number] : 1970 SEX: F AGE: 55 LOCATION: [facility] ORDER 14 STATUS: [facility] REPORT#: [id number] SERVICE 12 REASON: CHEST PAIN/COUGH ORDERING PHYSICIAN: ALHAJI SHINE NP PROCEDURE: CXR1VW - CHEST 1VW EXAM: XR Chest, 1 View. CLINICAL HISTORY: 55 year old female with chest pain and cough. COMPARISON: None provided. FINDINGS: LUNGS: The lungs demonstrate evidence of atelectasis. PLEURAL SPACES: A small right pleural effusion is present. HEART: The heart size is normal. BONES: No acute osseous abnormality. IMPRESSION: 1. Small right pleural effusion and right lung base atelectasis. /[facility] DICTATED BY: EDWIGE LEDESMA MD DATE: 07/20/252046 ELECTRONICALLY SIGNED BY: EDWIGE LEDESMA MD DATE: 07/20/252046 PATIENT: DALLAS BUCHANAN MR#: [id number] : 1970 SEX: F AGE: 55 LOCATION: [facility] ORDER 14 STATUS: REG REPORT#: [id number] SERVICE 12 REASON: Abdominal Pain ORDERING PHYSICIAN: ALHAJI SHINE NP PROCEDURE: ABD PEL W - CT ABDOMEN/PELVIS W/CONTRAST ADDENDUM REPORT ADDENDUM: Results were shared by telephone at 23:23 pm on 07-20-2025 and acknowledged by Pt nurse Ms. SHIN BOYKIN. /[facility] EXAM: CT Abdomen and Pelvis with Intravenous Contrast CLINICAL HISTORY: 55-year-old female with abdominal pain. TECHNIQUE: Axial computed tomography images of the abdomen and pelvis with intravenous contrast. Dose reduction technique was used including one or more of the following: automated exposure control, adjustment of mA and kV according to patient size, and/or iterative reconstruction. CONTRAST: Omnipaque 350, 75 mL COMPARISON: None provided. FINDINGS: LUNG BASES: Atelectasis and scarring at the lung bases. LIVER: Unremarkable. GALLBLADDER AND BILE DUCTS: Tiny gallstone seen. PANCREAS: Unremarkable. SPLEEN: Unremarkable. ADRENAL GLANDS: Unremarkable. KIDNEYS, URETERS, AND BLADDER: Dueñas catheter seen in the bladder lumen. No hydronephrosis or nephrolithiasis. No ureteral calculi. STOMACH AND BOWEL: Edema or loops of small bowel suggesting moderate small bowel enteritis. Free air in the upper abdomen is seen, suggesting perforated bowel. No obstruction. APPENDIX: No CT evidence for appendicitis. PERITONEUM: Moderate ascites in the abdomen and pelvis. No free air under the diaphragm. LYMPH NODES: No lymphadenopathy. REPRODUCTIVE: Unremarkable as visualized. VASCULATURE: No aortic aneurysm. ABDOMINAL WALL AND SOFT TISSUES: There is air in the subcutaneous soft tissue seen anteriorly, suggesting recent postsurgical changes; please correlate with surgical history. BONES: No fracture or suspicious osseous abnormality. IMPRESSION: 1. Moderate small bowel enteritis with free air in the upper abdomen, suggesting perforated bowel versus post surgical changes. No obstruction. 2. Moderate ascites in the abdomen and pelvis. 3. Air in the subcutaneous soft tissue anteriorly, suggesting recent postsurgical changes; please correlate with surgical history. /[place] DICTATED BY: EDWIGE LEDESMA MD DATE: 07/20/25 8627 ELECTRONICALLY SIGNED BY: DATE: EXAM: CT Abdomen and Pelvis with Intravenous Contrast CLINICAL HISTORY: 55-year-old female with abdominal pain. TECHNIQUE: Axial computed tomography images of the abdomen and pelvis with intravenous contrast. Dose reduction technique was used including one or more of the following: automated exposure control, adjustment of mA and kV according to patient size, and/or iterative reconstruction. CONTRAST: Omnipaque 350, 75 mL COMPARISON: None provided. FINDINGS: LUNG BASES: Atelectasis and scarring at the lung bases. LIVER: Unremarkable. GALLBLADDER AND BILE DUCTS: Tiny gallstone seen. PANCREAS: Unremarkable. SPLEEN: Unremarkable. ADRENAL GLANDS: Unremarkable. KIDNEYS, URETERS, AND BLADDER: Dueñas catheter seen in the bladder lumen. No hydronephrosis or nephrolithiasis. No ureteral calculi. STOMACH AND BOWEL: Edema or loops of small bowel suggesting moderate small bowel enteritis. Free air in the upper abdomen is seen, suggesting perforated bowel. No obstruction. APPENDIX: No CT evidence for appendicitis. PERITONEUM: Moderate ascites in the abdomen and pelvis. No free air under the diaphragm. LYMPH NODES: No lymphadenopathy. REPRODUCTIVE: Unremarkable as visualized. VASCULATURE: No aortic aneurysm. ABDOMINAL WALL AND SOFT TISSUES: There is air in the subcutaneous soft tissue seen anteriorly, suggesting recent postsurgical changes; please correlate with surgical history. BONES: No fracture or suspicious osseous abnormality. IMPRESSION: 1. Moderate small bowel enteritis with free air in the upper abdomen, suggesting perforated bowel versus post surgical changes. No obstruction. 2. Moderate ascites in the abdomen and pelvis. 3. Air in the subcutaneous soft tissue anteriorly, suggesting recent postsurgical changes; please correlate with surgical history. /[place] DICTATED BY: EDWIGE LEDESMA MD DATE: 07/20/252317 ELECTRONICALLY SIGNED BY: EDWIGE LEDESMA MD DATE: 07/20/252317 ASSESSMENT: Acute kidney injury Bilious peritonitis 2 mm perforation of the colonic anastomosis Diabetes Mellitus Type 2 Septic Shock Cirrhosis of liver Oesophageal Varices PLAN: Labs, diagnostic, radiologic exams reviewed and interpreted by myself and supervising physician. We have reviewed external records in detail Pending further surgery recommendations Require close monitoring of renal function and electrolytes Order CBC, CMP, and electrolytes in am Continue with antibiotics BiPAP as necessary, for respiratory distress Monitor blood pressure adjust medication doses as needed Avoid hypotensive episodes May use Dilaudid 0.5 mg IV every 6 hours as needed for severe pain Monitor blood sugars Strict intake, output, and daily weight should be monitored Please renally adjust medications Avoid nephrotoxic and nonsteroidal drugs Avoid contrast if possible Will continue to monitor renal function, anemia, electrolytes Treatment plan discussed with patient Questions were answered We have discussed with the other team physicians in detail about the care plan We will continue to monitor the patient closely ATTESTATION BY PHYSICIAN I have seen and examined the patient. I reviewed the documentation, medical decision making, and treatment plan as noted by the mid-level provider above. I agree with the findings and plan of care. CIELO PORTILLO MD, [facility] Aug 01, 2025 09:35
--- NOTE | 2025-08-01 13:51 | PN ---
[facility] PROGRESS NOTE Date of Service: Aug 01, 2025 Time of Service: 13:33 SUBJECTIVE: Ms. Gray is a 55-year-old female that was seen and examined today on 07/20/2025. Patient reports that she came to the emergency department with a chief complaint of abdominal pain. Onset was 07/09/2025. Location is all four quadrants. Duration is constant. Character is described as pressure and " like I have a lot of gas trapped. " there was no alleviating factors. There was no aggravating factors. Patient reports associated abdominal swelling. 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 After the discharge she was taking pain medications and her condition started worsening after few days. She is in constant follow up with Dr Gann. Today in the emergency department WBCs 21.2, left shift neutrophils 85.5%, BUN 26, creatinine 3.1, GFR 17, lactic acid 8.0, no urinalysis has been collected or sent to lab, CT of abdomen and pelvis showed of free air in the abdomen which could be a suspected bowel perforation versus postsurgical changes, moderate ascites, fissure post surgical changes. Chest x-ray shows right pleural effusion. Additionally patient had a heart rate of 125, respirations 26, together with leukocytosis and lactic acidosis patient met clinical sepsis criteria additionally patient's blood pressure dropped to 85/50 mmHg requiring vasopressor support therefore meeting criteria for septic shock. Patient will be admitted to the intensive care unit. Emergency room physician spoke with patient's surgeon, Dr. Gann who requested patient be admitted under hospitalist service and she will follow this case along. 07/21/25 Patient was evaluated at the bedside. She was accompanied by her daughter. She is oriented to the time, place and person. She complained of abdominal pain in all the quadrants. She hasn't had bowel movement since Saturday and also is unable to pass flatus at this time. She has guarding, rigidity and tenderness all over the abdomen, showing the signs of peritonitis. She was seen by Dr Gann this mo rning and is planned to be taken to OR this afternoon. Dueñas catheter is in place, as she wasn't able to pass the urine. There is no fever, chills and any other signs of infection. 07/22/25 Patient was evaluated at the bedside. She was accompanied by her daughter. She is oriented to the time, place and person. She underwent Diagnostic laparoscopy, abdominal washout, drain placement and diverting loop ileostomy creation, The procedure revealed Bilious peritonitis, 2 mm perforation of the colonic anastomosis. She is hemodynamically stable with Blood pressure of 110/73 and HR of 83. Currently she complains of abdominal pain which is getting better than yesterday, its 3-4/10 intensity. There is no rigidity. She is anxious about the outcomes and had discussion regarding her current clinical status and lab parameters. There is no fever, chills and any other signs of infection. 07/23/25 Patient was evaluated at the bedside. She was accompanied by her daughter. She is oriented to the time, place and person. She status post diagnostic laparoscopy, abdominal washout, drain placement and diverting loop ileostomy creation. Currently she complains of abdominal pain which is 5/10 intensity. She also complaints of mild lower back pain There is no fever, chills and any other signs of infection. She has CHRIS drain in-situ with clear fluid along with colostomy bag. She is currently tolerating clear liquid diet. 07/24/2025 Patient is seen and examined at the bedside. Vitals blood pressure ranging in 100s/50s, pulse rate 50s, SpO2 greater than 95% on room air. She mentions about experiencing pressure-like discomfort on the right side of the abdomen and pain when she tries to eat. No acute events last night. She denies fever, chills, nausea, vomiting, chest pain. CHRIS output approximately 100cc/hr, serosanguineous fluid. Ileostomy bag in place. She is tolerating clear liquid diet without any nausea/vomiting. Labs hemoglobin 9.8, BUN 38, creatinine improved from 1.6-1.1. 07/25/2025 Patient is seen and examined at the bedside. She complains of abdominal pain which is 7/10 in intensity. No acute events last night. She denies fever, chills, nausea, vomiting, chest pain. CHRIS output approximately 100cc/hr, serosanguineous fluid. Ileostomy bag in place. The patient has been started on spironolactone 25mg BID and Lasix 20 mg once daily. There is high output from CHRIS but it is clear serous, most likely related to her ascites from her history of liver cirrhosis. She is tolerating clear liquid diet without any nausea/vomiting. 07/26/2025 Patient is seen and examined at the bedside. She complains of abdominal pain which remains constant. No acute events last night. She denies fever, chills, nausea, vomiting, chest pain. Patient is status post with a CHRIS drain. The drain has been collecting the serosanguineous fluid secondary to ascites. She has been tolerating liquid diet and her diet has been advanced to soft diet. She still nielsen s bloating for which probiotics and fibers has been recommended. Hemoglobin has gradually trended down to 9.2 and was given IV Venofer. Patient to get up and ambulate and work with physical therapy. 07/27/2025 Patient is seen and examined at the bedside. She complains of abdominal pain which is 6/10 in intensity. No acute events last night. She denies fever, chills, nausea, vomiting, chest pain. Patient is unable to tolerate the soft diet, hence she is currently receiving the liquid diets. The CHRIS drain output is still high and there was small amount of drainage observed in the right ileostomy. 07/28/2025 Patient is seen and examined at the bedside. She complains of abdominal pain which is 9/10 in intensity. No acute events last night. She denies fever, chills, nausea, vomiting, chest pain. Patient reported pain after eating but no nausea or vomiting. WBC is gradually trending up from 8.3-7.3-11.1-11.8. She had lidocaine patch placed this morning. She was started on simethicone 80 mg yesterday. Pertinent she is currently receiving Dilaudid 0.5 mg. Abdominal ultrasound has been ordered for further assessment. 07/29/2025 Patient is seen and examined at the bedside. She continues to complain of severe abdominal pain, rated 9/10 in intensity, unchanged from prior. She is currently receiving Dilaudid 0.5 mg for pain. She reports discomfort related to Dueñas catheterization. She denies fever, chest pain, nausea or vomiting at this time. No acute events were reported overnight. Blood pressure noted today is noted to be 98/54 mm Hg which is slightly low. Per surgery team, stoma is likely to be removed today. Hemoglobin has trended down from 9.7 g/dl to 9.0 g/dl. 07/30/2025 Patient is seen and examined at the bedside. She continues to complain of severe abdominal pain. Her abdominal distention has slightly improved. Dueñas's catheter was removed due to persistent discomfort. We will continue with scheduled removal of the ascites fluid and from CHRIS bulb. Ultrasound of abdomen was concerning for cholelithiasis with biliary sludge and gallbladder distention. HIDA scan was performed today. If consistent with cholecystitis patient will need cholecystostomy tube placement. 07/31/2025 Patient is seen and examined at the bedside. She was accompanied by her daughter. She continues to complain of severe abdominal pain. She is currently on Dilaudid 0.5mg Q4H PRN, which relieves the symptoms for 2-3 hours, after that she develops same level of pain and discomfort again. Currently awaiting the HIDA scan results. Her sodium level is 133 and albumin level is trending downwards from 2.3 to 2.1. Her Iron panel results showed: Iron 20L, TIBC 147L and %sat 16.3L. For her continuos pain she is started on Fentanyl 25mcg. CHRIS drain culture has beens sent. Based on the results of HIDA scan, CT chest will be planned. 08/01/2025: Patient is seen and examined this morning at bedside. She was accompanied by her daughter. The patient complains of severe abdominal pain. She is currently being managed with [place], and Dilaudid for breakthrough pain. HIDA scan results are back, and show acute cholecystitis. Surgery has been made aware of the results. IR has been consulted for cholecystostomy tube placement. The patient will be started on PPN, as recommended by general surgery. The patient follows with Dr. Sol outpatient for her liver cirrhosis. The patients daughter would like her production team advisor Dr. Sol to be involved in the patients care, and be updated with her status. REVIEW OF SYSTEMS CONSTITUTIONAL: No fever, chills, or night sweats. NEUROLOGICAL: Denies headache, sensory and motor deficit. CARDIOVASCULAR: Denies any exertional angina, dyspnea on exertion, palpitations. PULMONARY: Denies any shortness of breath, cough, phlegm/sputum, hemoptysis, pleuritic chest pain. GASTROINTESTINAL: Patient complains of diffuse abdominal pain 9/10 intensity. She also has bloating. Denies nausea, vomiting. GENITOURINARY: Denies frequency, urgency, nocturia, hematuria or incontinence. PHYSICAL EXAM GENERAL APPEARANCE: The patient is alert, awake and oriented and bedbound. NEUROLOGICAL: No sensory and motor deficits. CHEST: Normal chest expansion. LUNGS: Normal Vesicular breath sound. Absence of any rales, rhonchi or any wheezing. CARDIOVASCULAR: Regular. S1 and S2 normal. No appreciable rubs, murmurs or gallops. ABDOMEN: Abdomen is soft and slightly tender. CHRIS drain is placed. Ileostomy creation. Absence of guarding, rigidity and rebound tenderness. GENITOURINARY: No suprapubic tenderness. No costovertebral angle tenderness. Vital Signs (last 8hr) Date Time Temp Pulse Resp B/P (MAP) Pulse Ox O2 Delivery O2 Flow Rate FiO2 08/01/25 08:10 94 Room Air* 0 21 08/01/25 08:00 98.2 83 18 87/54 94 Room Air 21 LABS: Laboratory: Test 08/01/25 11:36 08/01/25 05:13 08/01/25 04:07 07/31/25 14:59 Range/Units Whole Blood Glucose 108 70-110 MG/DL White Blood Count 7.7 4.8-10.8 K/uL Red Blood Count 2.97 L 4.00-5.50 MIL/uL Hemoglobin 8.9 L 12.0-16.0 g/dL Hematocrit 27.8 L 36-48 % Mean Corpuscular Volume 93.6 79-99 fL Mean Corpuscular Hemoglobin 30.0 27.0-33.0 pg Mean Corpuscular Hemoglobin Concent 32.0 32.0-36.0 g/dL Red Cell Distribution Width 17.5 H 11.0-15.5 % Platelet Count 200 130-400 K/uL Mean Platelet Volume 9.5 7.5-10.5 fL Immature Granulocyte % (Auto) 1.3 H 0-1 % Neutrophils (%) (Auto) 75.5 40.0-77.0 % Lymphocytes (%) (Auto) 8.8 L 21.0-51.0 % Monocytes (%) (Auto) 12.5 3.0-13.0 % Eosinophils (%) (Auto) 1.4 0.0-8.0 % Basophils (%) (Auto) 0.5 0.0-5.0 % Neutrophils # (Auto) 5.8 1.8-7.7 K/uL Lymphocytes # (Auto) 0.7 L 1.0-4.8 K/uL Monocytes # (Auto) 1.0 0.1-1.0 K/uL Eosinophils # (Auto) 0.11 0.00-0.70 K/uL Basophils # (Auto) 0.04 0.00-0.20 K/uL Absolute Immature Granulocyte (auto 0.10 0-1 K/uL Nucleated Red Blood Cells 0.0 0.0-0.19 % Sodium Level 136 136-145 mmol/L Potassium Level 4.0 3.5-5.1 mmol/L Chloride Level 105 101-111 mmol/L Carbon Dioxide Level 22 21-32 mmol/L Blood Urea Nitrogen 5 L 7-18 mg/dL Creatinine 0.6 0.5-1.0 mg/dL Glomerular Filtration Rate Calc 105 >90 mL/min Random Glucose 85 70-105 mg/dL Total Calcium 7.9 L 8.5-10.1 mg/dL Magnesium Level 1.70 L 1.80-2.40 mg/dL Body Fluid Source CHRIS DRAIN Body Fluid Volume 35 mL Body Fluid Color YELLOW LT YELLOW Body Fluid Supernatant Appearance CLOUDY H CLEAR Body Fluid WBC 865 /cu. mm. Body Fluid RBC 1280 /cu. mm. Body Fluid Neutrophils 15.0 % Body Fluid Lymphocytes 72 % Body Fluid Monocytes % 8 % Body Fluid Macrophages (%) 3 Body Fluid Mesothelial Cells (%) 2 % Lactic Acid Level 1.5 0.8-2.5 mmol/L C-Reactive Protein, Quantitative 105.60 H 0.5-3.0 mg/L Test 07/31/25 03:49 07/30/25 22:42 07/30/25 16:24 07/30/25 13:35 Range/Units Phosphorus Level 2.1 L 2.5-4.9 mg/dL Total Bilirubin 0.7 0.2-1.0 mg/dL Aspartate Amino Transf (AST/SGOT) 23 10-37 U/L Alanine Aminotransferase (ALT/SGPT) 9 L 12-78 U/L Alkaline Phosphatase 67 50-136 U/L Total Protein 5.4 L 6.0-8.3 g/dL Albumin 2.1 L 3.5-5.0 g/dL Urine Random Sodium 60 40-220 mmol/l Urine Random Potassium 20 L 25-125 mmol/L Urine Random Chloride 72 L 110-250 mmol/L Bedside Glucose Comment Notified Nurse Iron Level 24 L 50-170 mcg/dL Total Iron Binding Capacity 147 L 250-450 mcg/dL Percent Iron Saturation 16.3 L 22-44 % Current Medications Medications (Trade) Dose Ordered Sig/Gregory Route PRN Reason Start Time Stop Time Status Last Admin Dose Admin Acetaminophen (TYLenol 500MG TAB) 500 mg Q6H6 PRN PO MILD PAIN (1-3) 07/27/25 16:30 08/26/25 16:29 Acetaminophen (TYLenol 650MG SUPPOSITORY) 650 mg Q6H PRN RC MILD PAIN (1-3) 07/21/25 00:00 07/27/25 16:22 DC Acetaminophen/ Hydrocodone Bitart (NORco 5/325MG) 1 tab Q4H PRN PO MODERATE PAIN (4-6) 07/31/25 16:30 08/05/25 16:29 08/01/25 10:13 1 TAB Albumin Human 100 ml @ 0 mls/hr ONCE IV 07/25/25 12:00 07/26/25 11:59 DC 07/25/25 13:43 100 MLS/HR Clotrimazole (Lotrimin) 1 GM BID TP 07/29/25 21:00 08/28/25 20:59 08/01/25 10:16 30 GM Cyclobenzaprine HCl (Cyclobenzaprine HCl) 5 mg TID PO 07/25/25 14:00 07/26/25 14:00 DC 07/26/25 14:19 5 MG Fentanyl (DURAgesic 25 MCG/HR PATCH) 25 mcg Q72H TD 07/31/25 14:30 07/31/25 14:44 DC Fluconazole/ Sodium Chloride (DiFLUCan 200 MG/ NS 100 ML) 200 mg Q24H IVPB 07/21/25 21:00 08/20/25 20:59 07/31/25 19:29 200 MG Furosemide (LASix 20MG TAB) 20 mg DAILY PO 07/25/25 11:00 08/24/25 10:59 08/01/25 10:14 20 MG Gabapentin (NEURontin 100 mg CAP) 100 mg TID PO 07/29/25 14:00 08/28/25 13:59 08/01/25 10:13 100 MG Hydromorphone HCl (DiLAUDid 0.5MG INJ) 0.5 mg Q4H PRN IVP SEVERE PAIN (7-10) 07/24/25 10:00 07/29/25 09:59 DC 07/29/25 08:22 0.5 MG Hydromorphone HCl (DiLAUDid 0.5MG INJ) 0.5 mg Q4H PRN IVP SEVERE PAIN (7-10) 07/29/25 13:30 08/03/25 13:29 08/01/25 05:48 0.5 MG Insulin Human Regular (humuLIN R 100 UNIT/ML 3ML) INSULIN SLIDING SCAL... ACHS SQ 07/21/25 07:30 08/20/25 07:29 07/22/25 20:40 3 UNIT Lactated Ringer's 1,000 ml @ 75 mls/hr [id number] IV 07/21/25 00:00 07/21/25 13:17 DC 07/21/25 02:57 75 MLS/HR Lactated Ringer's 1,000 ml @ 75 mls/hr [id number] IV 07/21/25 13:30 07/24/25 11:09 DC 07/24/25 09:27 75 MLS/HR Lactobacillus Rhamnosus ([facility] [email or web address]) 1 each DAILY20 PO 07/26/25 20:00 08/25/25 19:59 07/31/25 19:29 1 EACH Lidocaine (Lidoderm Patch 5%) 1 patch DAILY TP 07/28/25 09:00 08/27/25 08:59 08/01/25 10:16 1 PATCH Magnesium Sulfate 50 ml @ 0 mls/hr PROTOCOL PRN IV MAGNESIUM PROTOCOL 07/21/25 07:00 08/20/25 06:59 08/01/25 06:05 25 MLS/HR Metronidazole/ Sodium Chloride (flaGYL) 500 mg Q8H IV 07/21/25 14:00 07/21/25 13:40 DC Morphine Sulfate (morPHINE 2MG SYG) 2 mg Q4H PRN IVP SEVERE PAIN (7-10) 07/21/25 00:30 07/21/25 13:18 DC 07/21/25 04:46 2 MG Morphine Sulfate (morPHINE 4MG SYG) 4 mg Q3H PRN IV MODERATE PAIN (4-6) 07/21/25 13:30 07/26/25 16:29 DC 07/26/25 10:51 4 MG Norepinephrine 250 ml @ 0 mls/hr PROTOCOL IV 07/20/25 23:30 08/19/25 23:29 07/21/25 10:56 18.45 MLS/HR Ondansetron HCl (zoFRAN 4MG INJ) 4 mg Q4H PRN IVP NAUSEA 07/21/25 13:30 08/20/25 13:29 Ondansetron HCl (zoFRAN 4MG INJ) 4 mg Q6H PRN IV NAUSEA/VOMITING 07/21/25 00:00 07/21/25 13:18 DC Pantoprazole Sodium (PROTonix 40MG INJ) 40 mg BID IV 07/26/25 21:00 08/20/25 08:59 08/01/25 10:15 40 MG Pantoprazole Sodium (PROTonix 40MG INJ) 40 mg DAILY IV 07/21/25 09:00 07/26/25 09:31 DC 07/26/25 08:55 40 MG Pharmacy Profile Note (Pharmacy Communication) 1 each ONCE MISC 07/21/25 15:30 07/21/25 15:16 DC Piperacillin Sod/ Tazobactam Sod 50 ml @ 200 mls/hr ONCE STAT IVPB 07/20/25 19:15 07/20/25 19:29 DC 07/20/25 20:32 200 MLS/HR Piperacillin Sod/ Tazobactam Sod (Zosyn 3.375gm+NS 50ml) 3.375 gm Q12H IV 07/21/25 00:00 07/31/25 00:00 DC 07/30/25 23:55 3.375 GM Piperacillin Sod/ Tazobactam Sod (Zosyn 3.375gm+NS 50ml) 3.375 gm Q8H IVPB 07/31/25 11:30 08/10/25 11:29 08/01/25 12:00 3.375 GM Potassium Chloride 100 ml @ 100 mls/hr AD PRN IV POTASSIUM PROTOCOL 07/24/25 08:30 08/23/25 08:29 07/30/25 06:23 100 MLS/HR Potassium Chloride (K-Dur/Klor-Con 20meq) 20 meq AD PRN PO POTASSIUM PROTOCOL 07/24/25 08:30 08/23/25 08:29 07/27/25 20:33 20 MEQ Potassium Chloride (KCl 10% Elixir 20meq/15ml) 20 meq AD PRN PO POTASSIUM PROTOCOL 07/24/25 08:30 08/23/25 08:29 07/31/25 08:15 20 MEQ Psyllium Hydrophilic Mucilloid (Metamucil) 1 tbs BID PO 07/26/25 21:00 08/25/25 20:59 08/01/25 10:16 1 TBS Simethicone (Mylicon) 80 mg Q6H6 PO 07/27/25 12:00 08/26/25 11:59 08/01/25 12:00 80 MG Sodium Bicarbonate 150 meq/Sodium Chloride 1,150 ml @ 0 mls/hr Q0M IVP 07/21/25 14:00 07/26/25 09:31 DC Sodium Chloride (NS 50ml) 50 ml AD IV 07/31/25 11:30 07/31/25 11:12 DC Spironolactone (Aldactone 25mg) 25 mg BID PO 07/25/25 21:00 07/26/25 09:01 DC 07/26/25 08:56 25 MG Sucralfate (Carafate) 1 gm ACHS PO 07/29/25 21:00 08/28/25 20:59 08/01/25 12:00 1 GM Thiamine HCl (Vitamin B-1) 100 mg DAILY IVP 07/22/25 21:00 08/21/25 20:59 08/01/25 10:16 100 MG Thiamine HCl 100 mg/Sodium Chloride 50 ml @ 100 mls/hr Q24H IM 07/21/25 15:30 07/21/25 16:25 DC Vancomycin HCl (Vancomycin 1g/ 250ml Kit) 1 gm ONCE STAT IV 07/20/25 21:23 07/20/25 21:26 DC 07/20/25 22:06 1 GM Vasopressin 20 units/Sodium Chloride 100 ml @ 0 mls/hr PROTOCOL IV 07/21/25 00:30 08/20/25 00:29 07/21/25 00:10 9 MLS/HR DIAGNOSTICS / RADIOLOGY: [place] [address] [address] IMAGING REPORT Signed PATIENT: DALLAS BUCHANAN MR#: [id number] : 1970 SEX: F AGE: 55 LOCATION: 4AH ORDER 1524 STATUS: ADM IN REPORT#: [id number] SERVICE 1523 REASON: cholecystitis ORDERING PHYSICIAN: BENEDICTO OBRIEN Jr. PROCEDURE: HIDA PHARM - NM HIDA/HEPATOBILI W/ PHARMACO EXAM: HIDA scan. INDICATION: Severe RUQ Pain to rule out cholecystitis. REFERENCE EXAMINATION: [facility] July 29, 2025. TECHNIQUE: Sequential images of the abdomen were obtained in the anterior projection after IV administration of 6.0 mCi of Tc99m Mebrofenin. FINDINGS: Tracer activity throughout the liver is homogeneous without focal defects. There is prompt excretion of the pharmaceutical into the bile ducts and into the small bowel, without evidence of obstruction. There is no visualization of the gallbladder at the conclusion of the examination. IMPRESSION: Scintigraphic findings are compatible with acute cholecystitis. /[place] DICTATED BY: ELDON MILLER Jr., MD DATE: 08/01/25 1011 ELECTRONICALLY SIGNED BY: ELDON MILLER Jr., MD DATE: 08/01/25 1011 ASSESSMENT: Suspected Bowel Perforation POA Bacterial peritonitis Cholelithiasis Small Bowel Obstruction, Suspected Anastomotic Leak Bilious peritonitis s/p Diagnostic laparoscopy, abdominal washout, drain placement and diverting loop ileostomy creation Iron Deficiency anemia Diabetes Mellitus Type 2 POA Acute Kidney Injury POA Septic Shock POA Cirrhosis of liver POA Esophageal Varices Recent Robotic takedown of splenic flexure mobilization, robotic takedown of colovesical fistula with sigmoid colectomy and end-to-end anastomosis surgery PLAN: Bilious peritonitis status post Diagnostic laparoscopy, abdominal washout, drain placement and diverting loop ileostomy creation She is able to tolerate the clear liquid diet -Continue close monitoring of the patient -continue physical therapy -Monitor CHRIS drain output -Continues with high output from CHRIS but it is clear serous, most likely related to her ascites from her history of liver cirrhosis -Continue Lactated Ringer's at 75 ml/hr for volume resuscitation and electrolyte replacement -continue Zosyn [day 12] and fluconazole [day 12] -Flexeril 5 mg t.i.d. has been started by the Surgery team. -Probiotics and Fibers have been added for bloating. -Protonix IV increased to twice daily. - Patient has been started on [place] by general surgery for abdominal pain, and is advised to take Diluadid only for breakthrough pain. -HIDA scan positive for acute cholecystitis. Surgery has been made aware. IR will be consulted for cholecystostomy tube tomorrow. -The patients family are requesting their production team advisor Dr. Sol to be involved with the patients care. Bacterial Peritonitis * Post Surgical patient with Bacterial peritonitis positive for ESBL * Culture and sensitivity shows susceptibility to Zosyn, Gentamicin and Meropenem. * Likely secondary to post-operative intraabdominal infection with risk of ongoi ng contamination. * Currently patient is on Zosyn (Day 12) * For her continuos pain she is started on Fentanyl 25mcg. CHRIS drain culture has beens sent. Cholelithiasis * Patient complained of upper abdominal pain * Ultrasound abdomen showed: Cirrhotic-appearing liver * Cholelithiasis and biliary sludge with gallbladder distension and Small volume ascites. * Hida scan shows acute cholecystitis. * Per Surgery: IR to be consulted for cholecystostomy tube placement. Small Bowel Obstruction, Suspected * Patient complaints of abdominal pain which is 9/10 on intensity * Abdominal Xray showed: Dilated small bowel loops are seen in mid abdomen * Perform Serial abdominal exams * Pain management(avoid excess opioids if ileus is suspected) * Evaluate drain, bowel status * Monitor for resolution vs progression of Ileus/obstruction. 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 - CT abdominal pelvis w/contrast done on 07/20/2025 showed Free air in the upper abdomen is seen, suggesting perforated bowel vs post surgical changes. No obstruction. -underwent Diagnostic laparoscopy, abdominal washout, drain placement and diverting loop ileostomy creation for biliary peritonitis Iron Deficiency anemia * Hemoglobin has trended down from 9.7 g/dl to 9.0- 8.9 g/dl. 07/31/25 * Iron sucrose (venofer) has been ordered. * Anemia panel has been ordered. Results showed Iron 24L, %sat 16.3 and TIBC 147L. 07/30/25 * Recommend trending Hgb and transfuse as needed to goal Hgb >7. * Plan to initiate the patient on Venofer, her last dose of Venofer was 200 mg on 07/26/2025 * Iron level is 20L, % saturation 11.9, TIBC 167L, Ferritin 129. 07/25/25 Septic Shock -resolved -Her WBC is 8.8 today. 07/31/25 -WBC is gradually trending up from 8.3-7.3-11.1-11.8-9.2. 07/29/25 -Her WBC during the presentation was 21.2 and today its 7.3. 07/26/25 -lactic acid normal at 1.6 yesterday -blood and urine culture results are negative Acute Kidney Injury Resolved -Creatinine improved from 1.6-1.1-0.7-0.6-0.6-0.6-0.6. 07/29/25 -Initial FeNA is 0.1 %, probably secondary to dehydration and NSAIDs overuse. -initial Urine sodium is < 13 and urine creatinine is 132.17. -Avoid nephrotoxic agents, eg. NSAIDS. -Weight patient daily. -Monitor intake and output. Cirrhosis of liver -Patient has a past history of cirrhosis of liver. - Liver functions are within normal limits. AST 23, ALT 12 and ALP 108. - Avoid NSAIDs and high dose acetaminophen. -Maintain appropriate volume of the patient. -Patient has been started on Spironolactone 25 mg b.i.d. and Lasix 20 mg once daily. 07/25/25 -Patients family is requesting that Dr. Sol be involved in the patients care. Supportive measures -Maintain IV fluids, correct electrolytes -Serial abdominal exams -Coat Operator on avoidance of NSAIDS and other related triggers. -Monitor Vitals and perform morning labs regularly Continue GI prophylaxis with Pantop Continue DVT prophylaxis with SCDs, we will avoid heparin due to history of allergies to porcine, we will coordinate with surgery consult on initiation of other anticoagulants LISET DOUGLAS MD Aug 01, 2025 13:51
--- NOTE | 2025-08-01 14:42 | PN ---
GENERAL SURGERY PROGRESS NOTE Date/Time Patient Seen: [ ] Interval History: [55-year-old female, postop day #11, diagnostic laparoscopy, abdominal washout, drain placement and diverting loop ileostomy creation by Dr. Gann Patient reports that she is having epigastric and right upper quadrant abdominal pain after eating. Denies nausea and vomiting. This is on top of her generalized abdominal pain. She has taking Dilaudid IV every 4 hours I told her that HIDA scan showed acute cholecystitis She is on TPN Daughter wants Dr. Sol from GI to evaluate her mother CHRIS drain is serous 100 cc in last24 hours Current Medications Medications (Trade) Dose Ordered Sig/Gregory Route Start Time Stop Time Status Last Admin Dose Admin Albumin Human 100 ml @ 0 mls/hr ONCE IV 07/25/25 12:00 07/26/25 11:59 DC 07/25/25 13:43 100 MLS/HR Clotrimazole (Lotrimin) 1 GM BID TP 07/29/25 21:00 08/28/25 20:59 08/01/25 10:16 30 GM Cyclobenzaprine HCl (Cyclobenzaprine HCl) 5 mg TID PO 07/25/25 14:00 07/26/25 14:00 DC 07/26/25 14:19 5 MG Fentanyl (DURAgesic 25 MCG/HR PATCH) 25 mcg Q72H TD 07/31/25 14:30 07/31/25 14:44 DC Fluconazole/ Sodium Chloride (DiFLUCan 200 MG/ NS 100 ML) 200 mg Q24H IVPB 07/21/25 21:00 08/20/25 20:59 07/31/25 19:29 200 MG Furosemide (LASix 20MG TAB) 20 mg DAILY PO 07/25/25 11:00 08/24/25 10:59 08/01/25 10:14 20 MG Gabapentin (NEURontin 100 mg CAP) 100 mg TID PO 07/29/25 14:00 08/28/25 13:59 08/01/25 14:20 100 MG Insulin Human Regular (humuLIN R 100 UNIT/ML 3ML) INSULIN SLIDING SCAL... ACHS SQ 07/21/25 07:30 08/20/25 07:29 07/22/25 20:40 3 UNIT Lactated Ringer's 1,000 ml @ 75 mls/hr [id number] IV 07/21/25 00:00 07/21/25 13:17 DC 07/21/25 02:57 75 MLS/HR Lactated Ringer's 1,000 ml @ 75 mls/hr [id number] IV 07/21/25 13:30 07/24/25 11:09 DC 07/24/25 09:27 75 MLS/HR Lactobacillus Rhamnosus ([facility] [employer]) 1 each DAILY20 PO 07/26/25 20:00 08/25/25 19:59 07/31/25 19:29 1 EACH Lidocaine (Lidoderm Patch 5%) 1 patch DAILY TP 07/28/25 09:00 08/27/25 08:59 08/01/25 10:16 1 PATCH Metronidazole/ Sodium Chloride (flaGYL) 500 mg Q8H IV 07/21/25 14:00 07/21/25 13:40 DC Norepinephrine 250 ml @ 0 mls/hr PROTOCOL IV 07/20/25 23:30 08/19/25 23:29 07/21/25 10:56 18.45 MLS/HR Pantoprazole Sodium (PROTonix 40MG INJ) 40 mg BID IV 07/26/25 21:00 08/20/25 08:59 08/01/25 10:15 40 MG Pantoprazole Sodium (PROTonix 40MG INJ) 40 mg DAILY IV 07/21/25 09:00 07/26/25 09:31 DC 07/26/25 08:55 40 MG Pharmacy Profile Note (Pharmacy Communication) 1 each ONCE MISC 07/21/25 15:30 07/21/25 15:16 DC Piperacillin Sod/ Tazobactam Sod 50 ml @ 200 mls/hr ONCE STAT IVPB 07/20/25 19:15 07/20/25 19:29 DC 07/20/25 20:32 200 MLS/HR Piperacillin Sod/ Tazobactam Sod (Zosyn 3.375gm+NS 50ml) 3.375 gm Q12H IV 07/21/25 00:00 07/31/25 00:00 DC 07/30/25 23:55 3.375 GM Piperacillin Sod/ Tazobactam Sod (Zosyn 3.375gm+NS 50ml) 3.375 gm Q8H IVPB 07/31/25 11:30 08/10/25 11:29 08/01/25 12:00 3.375 GM Psyllium Hydrophilic Mucilloid (Metamucil) 1 tbs BID PO 07/26/25 21:00 08/25/25 20:59 08/01/25 10:16 1 TBS Simethicone (Mylicon) 80 mg Q6H6 PO 07/27/25 12:00 08/26/25 11:59 08/01/25 12:00 80 MG Sodium Bicarbonate 150 meq/Sodium Chloride 1,150 ml @ 0 mls/hr Q0M IVP 07/21/25 14:00 07/26/25 09:31 DC Sodium Chloride (NS 50ml) 50 ml AD IV 07/31/25 11:30 07/31/25 11:12 DC Spironolactone (Aldactone 25mg) 25 mg BID PO 07/25/25 21:00 07/26/25 09:01 DC 07/26/25 08:56 25 MG Sucralfate (Carafate) 1 gm ACHS PO 07/29/25 21:00 08/28/25 20:59 08/01/25 12:00 1 GM Thiamine HCl (Vitamin B-1) 100 mg DAILY IVP 07/22/25 21:00 08/21/25 20:59 08/01/25 10:16 100 MG Thiamine HCl 100 mg/Sodium Chloride 50 ml @ 100 mls/hr Q24H IM 07/21/25 15:30 07/21/25 16:25 DC Vancomycin HCl (Vancomycin 1g/ 250ml Kit) 1 gm ONCE STAT IV 07/20/25 21:23 07/20/25 21:26 DC 07/20/25 22:06 1 GM Vasopressin 20 units/Sodium Chloride 100 ml @ 0 mls/hr PROTOCOL IV 07/21/25 00:30 08/20/25 00:29 07/21/25 00:10 9 MLS/HR Physical Examination: GENERAL: [No acute distress.] HEAD: [Normal with no signs of head trauma.] EYES: [PERRLA, EOMI, conjunctiva and sclera normal.] ENT: [Hearing grossly intact, normal oropharynx.] NECK: [Supple without JVD. There is no tenderness, lymphadenopathy, or masses. No thyromegaly. Normal carotid upstrokes without bruits.] LUNGS: [Clear breath sounds bilaterally. There are right basilar rales one third of the way up the chest. No wheezes, or rhonchi.] HEART: [Normal rate and rhythm. Normal S1 and S2 without mumurs, gallop or rub.] VASC: [Peripheral pulses +2 bilaterally.] ABD: [Bowel sounds normal, soft, right upper quadrant tenderness, incisions are clean dry and intact : [Not examined] LYMPH: [No lymphadenopathy noted.] EXT: [No clubbing, cyanosis or edema.] SKIN: [No rashes or lesions noted.] NEURO: [Awake, alert, and oriented x3. No focal sensory or strength deficits noted.] Vital Signs (last 8hr) Date Time Temp Pulse Resp B/P (MAP) Pulse Ox O2 Delivery O2 Flow Rate FiO2 08/01/25 08:10 94 Room Air* 0 21 08/01/25 08:00 98.2 83 18 87/54 94 Room Air 21 Laboratory: [ ] Hematology Labs: Test 08/01/25 05:13 Range/Units White Blood Count 7.7 4.8-10.8 K/uL Red Blood Count 2.97 L 4.00-5.50 MIL/uL Hemoglobin 8.9 L 12.0-16.0 g/dL Hematocrit 27.8 L 36-48 % Mean Corpuscular Volume 93.6 79-99 fL Mean Corpuscular Hemoglobin 30.0 27.0-33.0 pg Mean Corpuscular Hemoglobin Concent 32.0 32.0-36.0 g/dL Red Cell Distribution Width 17.5 H 11.0-15.5 % Platelet Count 200 130-400 K/uL Mean Platelet Volume 9.5 7.5-10.5 fL Immature Granulocyte % (Auto) 1.3 H 0-1 % Neutrophils (%) (Auto) 75.5 40.0-77.0 % Lymphocytes (%) (Auto) 8.8 L 21.0-51.0 % Monocytes (%) (Auto) 12.5 3.0-13.0 % Eosinophils (%) (Auto) 1.4 0.0-8.0 % Basophils (%) (Auto) 0.5 0.0-5.0 % Neutrophils # (Auto) 5.8 1.8-7.7 K/uL Lymphocytes # (Auto) 0.7 L 1.0-4.8 K/uL Monocytes # (Auto) 1.0 0.1-1.0 K/uL Eosinophils # (Auto) 0.11 0.00-0.70 K/uL Basophils # (Auto) 0.04 0.00-0.20 K/uL Absolute Immature Granulocyte (auto 0.10 0-1 K/uL Nucleated Red Blood Cells 0.0 0.0-0.19 % Chemistry Labs: Test 08/01/25 11:36 08/01/25 05:13 07/31/25 14:59 07/31/25 03:49 Range/Units Whole Blood Glucose 108 70-110 MG/DL Sodium Level 136 136-145 mmol/L Potassium Level 4.0 3.5-5.1 mmol/L Chloride Level 105 101-111 mmol/L Carbon Dioxide Level 22 21-32 mmol/L Blood Urea Nitrogen 5 L 7-18 mg/dL Creatinine 0.6 0.5-1.0 mg/dL Glomerular Filtration Rate Calc 105 >90 mL/min Random Glucose 85 70-105 mg/dL Total Calcium 7.9 L 8.5-10.1 mg/dL Magnesium Level 1.70 L 1.80-2.40 mg/dL Lactic Acid Level 1.5 0.8-2.5 mmol/L C-Reactive Protein, Quantitative 105.60 H 0.5-3.0 mg/L Phosphorus Level 2.1 L 2.5-4.9 mg/dL Total Bilirubin 0.7 0.2-1.0 mg/dL Aspartate Amino Transf (AST/SGOT) 23 10-37 U/L Alanine Aminotransferase (ALT/SGPT) 9 L 12-78 U/L Alkaline Phosphatase 67 50-136 U/L Total Protein 5.4 L 6.0-8.3 g/dL Albumin 2.1 L 3.5-5.0 g/dL Test 07/30/25 16:24 Range/Units Bedside Glucose Comment Notified Nurse Diagnostics / Radiology: HIDA positive for acute cholecystitis Impression and Plan: [55-year-old female, postop day #11, diagnostic laparoscopy, abdominal washout, drain placement and diverting loop ileostomy creation by Dr. Gann HIDA scan is positive for acute cholecystitis and cholecystostomy tube ordered by IR placement tomorrow. Order coags for tomorrow morning and made her NPO for the procedure tomorrow by EVANGELISTA DENGNOVEMBER Roel CERVANTES Aug 01, 2025 14:42
[2025-08-01 16:00] VITALS: BP 107/63; PULSE 88; RESP 16; TEMP 97.8
[2025-08-01 20:00] VITALS: BP 91/58; PULSE 84; RESP 20; TEMP 98.3; O2SAT 90
[2025-08-01] MEDS: MULTITRACE-4 ADULT 10ML VIAL 3 ML, M.V.I. IV [ADULT] 10 ML in CLINIMIX-E4.25%AA/D5+LYT2... IV ONE (20:25)
[2025-08-02] VITALS (14 sets, daily range): BP systolic 93–117; BP diastolic 55–76; PULSE 84–95; RESP 16–20; TEMP 98.2–99.1; O2SAT 94
[2025-08-02 04:40] LABS: IMMATURE GRANULOCYTE ABSOLUTE 0.05 K/uL (0-1); NUCLEATED RED BLOOD CELLS 0.0 % (0.0-0.19); PLATELET COUNT (AUTO) 246 K/uL (130-400); RED BLOOD CELL COUNT(AUTO) 2.94 MIL/uL (4.00-5.50); RED CELL DISTRIBUTION WIDTH 17.4 % (11.0-15.5); WHITE BLOOD COUNT (AUTO) 7.4 K/uL (4.8-10.8)
[2025-08-02 04:56] LABS: INR 1.32 (0.85-1.15)
[2025-08-02 05:21] LABS: ASPARTATE AMINOTRANSFERASE 20.0 U/L (10-37); CREATININE 0.6 mg/dL (0.5-1.0); GLOMERULAR FILTR. RATE CALC 105.0 mL/min (>90); GLUCOSE,RANDOM 244.0 mg/dL (70-105); PHOSPHORUS 3.7 mg/dL (2.5-4.9); SODIUM SERUM 135.0 mmol/L (136-145); TOTAL PROTEIN, SERUM 5.6 g/dL (6.0-8.3); UREA NITROGEN, BLOOD 4.0 mg/dL (7-18)
[2025-08-02] MEDS: ALBUMIN HUMAN 25% 100 ML IV ONE (09:41)
[2025-08-02] MEDS ORDERED: IOHEXOL-350 50ML VIAL IV ONE (11:24)
[2025-08-02] MEDS ORDERED: LIDOCAINE HCL 400MG/20ML VIAL ONE (11:24)
[2025-08-02] MEDS ORDERED: MIDAZOLAM HCL 1 MG/ML 2ML VIAL ONE ×2 (11:54→12:15)
[2025-08-02] MEDS: ESTROGENS,CONJUGATED 0.625 MG/GM 42.5 GM VAG CRM VG ONE ×2 (12:00→18:47)
--- NOTE | 2025-08-02 12:40 | OP ---
DATE OF PROCEDURE: 08/02/2025 STUDY: Fluoroscopy and ultrasound-guided placement of cholecystotomy tube and cholecystogram. The patient was given IV conscious sedation for 10 minutes, was titrated with 75 mcg of fentanyl and 3 mg of Versed. PROCEDURE IN DETAIL: After sterile prep and drape, under ultrasound guidance, the gallbladder was localized using a right anterior mid axillary approach. A Chiba needle was placed into the gallbladder. This was exchanged over an angiographic wire. An 8-Serbian multipurpose drainage catheter was placed in the gallbladder lumen, which appears to be in satisfactory position. Cholecystogram was performed. The study demonstrates the catheter to be in satisfactory position. The cystic duct appears to be obstructed. The catheter was secured with 3-0 silk suture and connected to a drainage bag. IMPRESSION: Percutaneous ultrasound fluoroscopy guided placement of a cholecystostomy tube 8-Serbian, which appears to be in satisfactory position. I would recommend the catheter be flushed daily with 10 mL of saline and to measure the output daily. TID: [id number] RECEIPT: [id number]
--- NOTE | 2025-08-02 13:15 | PN ---
NEPHROLOGY PROGRESS NOTE Date/Time Patient Seen: Aug 02, 2025 SUBJECTIVE: This is a 55-year-old female with a past medical history of diabetes mellitus type 2, liver cirrhosis, esophageal varices. He presented to the emergency room with chief complain of abdominal pain. CT of the abdomen showed moderate small bowel enteritis with free air in the upper abdomen, suggesting perforated bowel versus post surgical changes. No obs truction. S/p diagnostic laparoscopy, abdominal washout, drain placement and diverting loop ileostomy creation with CHRIS drain 10 Romanian on 07/21 HIDA scan results were noted S/P fluoroscopy and ultrasound-guided placement of cholecystotomy tube and cholecystogram. She was noted to have elevated BUN/creatinine We are consulted for renal failure Renal function and electrolytes are stable. She was seen in the medial floor, in no acute distress No family at the bedside REVIEW OF SYSTEMS: GENERAL: Positive for abdominal pain and nausea NEUROLOGIC: Negative for any blurry vision, blind spots, double vision, facial asymmetry, dysphagia, dysarthria, hemiparesis, hemisensory deficits, vertigo, ataxia. HEENT: Negative for any head trauma, neck trauma, neck stiffness, photophobia, phonophobia, sinusitis, rhinitis. CARDIAC: Negative for any chest pain, dyspnea on exertion, paroxysmal nocturnal dyspnea, peripheral edema. PULMONARY: Negative for any shortness of breath, wheezing, COPD, or TB exposure. GASTROINTESTINAL: Negative for any abdominal pain, nausea, vomiting, bright red blood per rectum, melena. GENITOURINARY: Negative for any dysuria, hematuria, incontinence. INTEGUMENTARY: Negative for any rashes, cuts, insect bites. RHEUMATOLOGIC: Negative for any joint pains, photosensitive rashes, history of vasculitis or kidney problems. HEMATOLOGIC: Negative for any abnormal bruising, frequent infections or bleeding. Vital Signs (last 8hr) Date Time Temp Pulse Resp B/P (MAP) Pulse Ox O2 Delivery O2 Flow Rate FiO2 08/02/25 12:55 98.2 91 17 116/68 95 Room Air 08/02/25 07:23 98.8 89 16 93/56 98 Room Air PHYSICAL EXAM: GENERAL: Alert and oriented x 3. No acute distress. Well-nourished. EYES: EOMI. Anicteric. HENT: Moist mucous membranes. No scleral icterus. No cervical lymphadenopathy. LUNGS: Clear to auscultation bilaterally. No accessory muscle use. CARDIOVASCULAR: Regular rate and rhythm. No murmur. No JVD. ABDOMEN: Soft, non-tender and non-distended. No palpable masses. EXTREMITIES: No edema. Non-tender SKIN: No rashes or lesions. Warm. NEUROLOGIC: No focal neurological deficits. CN II-XII grossly intact, but not individually tested. PSYCHIATRIC: Cooperative. Appropriate mood and affect. Current Medications Medications (Trade) Dose Ordered Sig/Gregory Route Start Time Stop Time Status Last Admin Dose Admin Albumin Human 100 ml @ 0 mls/hr ONCE IV 07/25/25 12:00 07/26/25 11:59 DC 07/25/25 13:43 100 MLS/HR Cyclobenzaprine HCl (Cyclobenzaprine HCl) 5 mg TID PO 07/25/25 14:00 07/26/25 14:00 DC 07/26/25 14:19 5 MG Fluconazole/ Sodium Chloride (DiFLUCan 200 MG/ NS 100 ML) 200 mg Q24H IVPB 07/21/25 21:00 08/20/25 20:59 07/25/25 20:47 200 MG Furosemide (LASix 20MG TAB) 20 mg DAILY PO 07/25/25 11:00 08/24/25 10:59 07/26/25 08:56 20 MG Insulin Human Regular (humuLIN R 100 UNIT/ML 3ML) INSULIN SLIDING SCAL... ACHS SQ 07/21/25 07:30 08/20/25 07:29 07/22/25 20:40 3 UNIT Lactated Ringer's 1,000 ml @ 75 mls/hr [id number] IV 07/21/25 00:00 07/21/25 13:17 DC 07/21/25 02:57 75 MLS/HR Lactated Ringer's 1,000 ml @ 75 mls/hr [id number] IV 07/21/25 13:30 07/24/25 11:09 DC 07/24/25 09:27 75 MLS/HR Lactobacillus Rhamnosus ([facility] [employer]) 1 each DAILY20 PO 07/26/25 20:00 08/25/25 19:59 Metronidazole/ Sodium Chloride (flaGYL) 500 mg Q8H IV 07/21/25 14:00 07/21/25 13:40 DC Norepinephrine 250 ml @ 0 mls/hr PROTOCOL IV 07/20/25 23:30 08/19/25 23:29 07/21/25 10:56 18.45 MLS/HR Pantoprazole Sodium (PROTonix 40MG INJ) 40 mg BID IV 07/26/25 21:00 08/20/25 08:59 Pantoprazole Sodium (PROTonix 40MG INJ) 40 mg DAILY IV 07/21/25 09:00 07/26/25 09:31 DC 07/26/25 08:55 40 MG Pharmacy Profile Note (Pharmacy Communication) 1 each ONCE MISC 07/21/25 15:30 07/21/25 15:16 DC Piperacillin Sod/ Tazobactam Sod 50 ml @ 200 mls/hr ONCE STAT IVPB 07/20/25 19:15 07/20/25 19:29 DC 07/20/25 20:32 200 MLS/HR Piperacillin Sod/ Tazobactam Sod (Zosyn 3.375gm+NS 50ml) 3.375 gm Q12H IV 07/21/25 00:00 07/31/25 00:00 07/26/25 12:10 3.375 GM Psyllium Hydrophilic Mucilloid (Metamucil) 1 tbs BID PO 07/26/25 21:00 08/25/25 20:59 Sodium Bicarbonate 150 meq/Sodium Chloride 1,150 ml @ 0 mls/hr Q0M IVP 07/21/25 14:00 07/26/25 09:31 DC Spironolactone (Aldactone 25mg) 25 mg BID PO 07/25/25 21:00 07/26/25 09:01 DC 07/26/25 08:56 25 MG Thiamine HCl (Vitamin B-1) 100 mg DAILY IVP 07/22/25 21:00 08/21/25 20:59 07/26/25 08:55 100 MG Thiamine HCl 100 mg/Sodium Chloride 50 ml @ 100 mls/hr Q24H IM 07/21/25 15:30 07/21/25 16:25 DC Vancomycin HCl (Vancomycin 1g/ 250ml Kit) 1 gm ONCE STAT IV 07/20/25 21:23 07/20/25 21:26 DC 07/20/25 22:06 1 GM Vasopressin 20 units/Sodium Chloride 100 ml @ 0 mls/hr PROTOCOL IV 07/21/25 00:30 08/20/25 00:29 07/21/25 00:10 9 MLS/HR LABORATORY: [ ] Hematology Labs: Test 08/02/25 04:30 Range/Units White Blood Count 7.4 4.8-10.8 K/uL Red Blood Count 2.94 L 4.00-5.50 MIL/uL Hemoglobin 8.6 L 12.0-16.0 g/dL Hematocrit 27.9 L 36-48 % Mean Corpuscular Volume 94.9 79-99 fL Mean Corpuscular Hemoglobin 29.3 27.0-33.0 pg Mean Corpuscular Hemoglobin Concent 30.8 L 32.0-36.0 g/dL Red Cell Distribution Width 17.4 H 11.0-15.5 % Platelet Count 246 130-400 K/uL Mean Platelet Volume 9.5 7.5-10.5 fL Immature Granulocyte % (Auto) 0.7 0-1 % Neutrophils (%) (Auto) 74.7 40.0-77.0 % Lymphocytes (%) (Auto) 11.7 L 21.0-51.0 % Monocytes (%) (Auto) 11.3 3.0-13.0 % Eosinophils (%) (Auto) 1.2 0.0-8.0 % Basophils (%) (Auto) 0.4 0.0-5.0 % Neutrophils # (Auto) 5.5 1.8-7.7 K/uL Lymphocytes # (Auto) 0.9 L 1.0-4.8 K/uL Monocytes # (Auto) 0.8 0.1-1.0 K/uL Eosinophils # (Auto) 0.09 0.00-0.70 K/uL Basophils # (Auto) 0.03 0.00-0.20 K/uL Absolute Immature Granulocyte (auto 0.05 0-1 K/uL Nucleated Red Blood Cells 0.0 0.0-0.19 % Red Blood Cell Morphology See comments Chemistry Labs: Test 08/02/25 12:59 08/02/25 06:10 08/02/25 04:30 08/01/25 05:13 Range/Units Potassium Level 4.7 3.5-5.1 mmol/L Whole Blood Glucose 132 H 70-110 MG/DL Sodium Level 135 L 136-145 mmol/L Chloride Level 104 101-111 mmol/L Carbon Dioxide Level 23 21-32 mmol/L Blood Urea Nitrogen 4 L 7-18 mg/dL Creatinine 0.6 0.5-1.0 mg/dL Glomerular Filtration Rate Calc 105 >90 mL/min Random Glucose 244 #H 70-105 mg/dL Total Calcium 8.1 L 8.5-10.1 mg/dL Phosphorus Level 3.7 2.5-4.9 mg/dL Total Bilirubin 0.5 0.2-1.0 mg/dL Aspartate Amino Transf (AST/SGOT) 20 10-37 U/L Alanine Aminotransferase (ALT/SGPT) 9 L 12-78 U/L Alkaline Phosphatase 67 50-136 U/L C-Reactive Protein, Quantitative 103.90 H 0.5-3.0 mg/L Total Protein 5.6 L 6.0-8.3 g/dL Albumin 2.0 L 3.5-5.0 g/dL Procalcitonin 0.11 0.05-0.5 ng/mL Magnesium Level 1.70 L 1.80-2.40 mg/dL Test 07/31/25 14:59 Range/Units Lactic Acid Level 1.5 0.8-2.5 mmol/L Coagulation Labs: Test 08/02/25 04:30 Range/Units Prothrombin Time 13.6 H 9.6-11.6 SEC Prothromb Time International Ratio 1.32 H 0.85-1.15 Activated Partial Thromboplast Time 35.3 26.3-35.5 [facility] / RADIOLOGY: [place] [address] IMAGING REPORT Signed PATIENT: DALLAS BUCHANAN MR#: [id number] : 1970 SEX: F AGE: 55 LOCATION: [facility] ORDER 1524 STATUS: ADM IN REPORT#: [id number] SERVICE 1523 REASON: cholecystitis ORDERING PHYSICIAN: BENEDICTO OBRIEN Jr. PROCEDURE: HIDA PHARM - NM HIDA/HEPATOBILI W/ PHARMACO EXAM: HIDA scan. INDICATION: Severe RUQ Pain to rule out cholecystitis. REFERENCE EXAMINATION: [facility] July 29, 2025. TECHNIQUE: Sequential images of the abdomen were obtained in the anterior projection after IV administration of 6.0 mCi of Tc99m Mebrofenin. FINDINGS: Tracer activity throughout the liver is homogeneous without focal defects. There is prompt excretion of the pharmaceutical into the bile ducts and into the small bowel, without evidence of obstruction. There is no visualization of the gallbladder at the conclusion of the examination. IMPRESSION: Scintigraphic findings are compatible with acute cholecystitis. /[place] DICTATED BY: ELDON MILLER Jr., MD DATE: 08/01/25 101 ELECTRONICALLY SIGNED BY: ELDON MILLER Jr., MD DATE: 08/01/25 101 PATIENT: DALLAS BUCHANAN MR#: [id number] : 1970 SEX: F AGE: 55 LOCATION: [facility] ORDER 10 STATUS: ADM IN REPORT#: [id number] SERVICE 09 REASON: ABD PAIN ORDERING PHYSICIAN: NIKKI MUNOZ NP PROCEDURE: ABD 1VW - ABD 1VW EXAM: CR Abdomen, 1 view. CLINICAL HISTORY: Pain. COMPARISON: None provided. FINDINGS: Dilated small bowel loops are seen in mid abdomen. There is a density in the pelvis which may represent a send drainage catheter. No free air is evident. No abnormal calcification. No aggressive appearing osseous lesion. IMPRESSION: Dilated small bowel loops are seen in mid abdomen. Density in the pelvis which may represent a send drainage catheter. /[place] DICTATED BY: TOBI LEAHY MD DATE: 07/29/251032 ELECTRONICALLY SIGNED BY: TOBI LEAHY MD DATE: 07/29/251032 PATIENT: DALLAS BUCHANAN MR#: [id number] : 1970 SEX: F AGE: 55 LOCATION: [facility] ORDER 1519 STATUS: ADM IN REPORT#: [id number] SERVICE 1516 REASON: Liver cirrhosis ORDERING PHYSICIAN: LISET DOUGLAS MD PROCEDURE: ABDOMEN - US ABDOMINAL COMPLETE EXAM: US Abdomen complete CLINICAL HISTORY: Liver cirrhosis TECHNIQUE: Real-time ultrasound of the abdomen (complete) with image documentation. COMPARISON: None provided. FINDINGS: LIVER: Liver measures 12.3 cm with a heterogeneous coarse echotexture. GALLBLADDER: Gallbladder contains stones and sludge. Gallbladder is distended. COMMON BILE DUCT: No dilation. PANCREAS: Pancreas not well-visualized due to overlying bowel gas KIDNEYS: Normal renal contours. No renal mass or calculus. No hydronephrosis. SPLEEN: Normal in size and echogenicity. No mass identified. AORTA: No aneurysm. IVC: Unremarkable as visualized. MISCELLANEOUS: Small amount of abdominal ascites. IMPRESSION: 1. Cirrhotic-appearing liver. 2. Cholelithiasis and biliary sludge with gallbladder distension. 3. Small volume ascites. /[place] DICTATED BY: CYNTHIA JULIAN MD DATE: 07/29/25 105 ELECTRONICALLY SIGNED BY: CYNTHIA JULIAN MD DATE: 07/29/251055 PATIENT: DALLAS BUCHANAN MR#: [id number] : 1970 SEX: F AGE: 55 LOCATION: [facility] ORDER 1108 STATUS: ADM IN REPORT#: [id number] SERVICE 1106 REASON: sob ORDERING PHYSICIAN: PREET BOSTON MD PROCEDURE: CXR1VW - CHEST 1VW CHEST 1VW REASON: sob COMPARISON: Study from 07/21/2025 is available. FINDINGS: Single view of the chest was obtained. Lungs are clear. Heart size is normal. There is no pulmonary vascular congestion. There is a right-sided PIC catheter with tip in superior vena cava. There is a nasogastric tube with the tip in the fundus of the stomach. Mediastinum and bony thorax appear unremarkable. IMPRESSION: 1. No acute cardiopulmonary process 2. The support lines are in satisfactory position.. DICTATED BY: GREER FIORE MD DATE: 07/22/251349 ELECTRONICALLY SIGNED BY: GREER FIORE MD DATE: 07/22/251353 PATIENT: DALLAS BUCHANAN MR#: [id number] : 1970 SEX: F AGE: 55 LOCATION: [facility] ORDER STATUS: ADM IN REPORT#: [id number] SERVICE REASON: PICC LINE ORDERING PHYSICIAN: HEATHER LEACH APRN PROCEDURE: CXR1VW - CHEST 1VW EXAM: CR Chest, single view. CLINICAL HISTORY: PICC line COMPARISON: Prior same day chest radiograph. FINDINGS: Right-sided PICC catheter with tip in the cavoatrial junction. Subsegmental atelectasis in the right lower lobe. No evidence of pleural effusion or pneumothorax. The cardiomediastinal silhouette is within normal limits. No acute osseous abnormality. IMPRESSION: Right-sided PICC catheter with tip in the cavoatrial junction. Subsegmental atelectasis in the right lower lobe. No evidence of pleural effusion or pneumothorax. Compared to the prior study, there is interval placement of the right-sided PICC line and interval resolution of the subsegmental atelectasis in the left lower lobe. /[place] DICTATED BY: ELDON MILLER Jr., MD DATE: 07/21/25816 ELECTRONICALLY SIGNED BY: ELDON MILLER Jr., MD DATE: 07/21/25816 PATIENT: DALLAS BUCHANAN MR#: [id number] : 1970 SEX: F AGE: 55 LOCATION: [facility] ORDER 14 STATUS: [facility] REPORT#: [id number] SERVICE 12 REASON: CHEST PAIN/COUGH ORDERING PHYSICIAN: ALHAJI SHINE NP PROCEDURE: CXR1VW - CHEST 1VW EXAM: XR Chest, 1 View. CLINICAL HISTORY: 55 year old female with chest pain and cough. COMPARISON: None provided. FINDINGS: LUNGS: The lungs demonstrate evidence of atelectasis. PLEURAL SPACES: A small right pleural effusion is present. HEART: The heart size is normal. BONES: No acute osseous abnormality. IMPRESSION: 1. Small right pleural effusion and right lung base atelectasis. /[place] DICTATED BY: EDWIGE LEDESMA MD DATE: 07/20/252046 ELECTRONICALLY SIGNED BY: EDWIGE LEDESMA MD DATE: 07/20/252046 PATIENT: DALLAS BUCHANAN MR#: [id number] : 1970 SEX: F AGE: 55 LOCATION: [facility] ORDER 14 STATUS: [facility] REPORT#: [id number] SERVICE 12 REASON: Abdominal Pain ORDERING PHYSICIAN: ALHAJI SHINE NP PROCEDURE: ABD PEL W - CT ABDOMEN/PELVIS W/CONTRAST ADDENDUM REPORT ADDENDUM: Results were shared by telephone at 23:23 pm on 07-20-2025 and acknowledged by Pt nurse Ms. SHIN BOYKIN. /[place] EXAM: CT Abdomen and Pelvis with Intravenous Contrast CLINICAL HISTORY: 55-year-old female with abdominal pain. TECHNIQUE: Axial computed tomography images of the abdomen and pelvis with intravenous contrast. Dose reduction technique was used including one or more of the following: automated exposure control, adjustment of mA and kV according to patient size, and/or iterative reconstruction. CONTRAST: Omnipaque 350, 75 mL COMPARISON: None provided. FINDINGS: LUNG BASES: Atelectasis and scarring at the lung bases. LIVER: Unremarkable. GALLBLADDER AND BILE DUCTS: Tiny gallstone seen. PANCREAS: Unremarkable. SPLEEN: Unremarkable. ADRENAL GLANDS: Unremarkable. KIDNEYS, URETERS, AND BLADDER: Dueñas catheter seen in the bladder lumen. No hydronephrosis or nephrolithiasis. No ureteral calculi. STOMACH AND BOWEL: Edema or loops of small bowel suggesting moderate small bowel enteritis. Free air in the upper abdomen is seen, suggesting perforated bowel. No obstruction. APPENDIX: No CT evidence for appendicitis. PERITONEUM: Moderate ascites in the abdomen and pelvis. No free air under the diaphragm. LYMPH NODES: No lymphadenopathy. REPRODUCTIVE: Unremarkable as visualized. VASCULATURE: No aortic aneurysm. ABDOMINAL WALL AND SOFT TISSUES: There is air in the subcutaneous soft tissue seen anteriorly, suggesting recent postsurgical changes; please correlate with surgical history. BONES: No fracture or suspicious osseous abnormality. IMPRESSION: 1. Moderate small bowel enteritis with free air in the upper abdomen, suggesting perforated bowel versus post surgical changes. No obstruction. 2. Moderate ascites in the abdomen and pelvis. 3. Air in the subcutaneous soft tissue anteriorly, suggesting recent postsurgical changes; please correlate with surgical history. /[place] DICTATED BY: EDWIGE LEDESMA MD DATE: 07/20/25 9832 ELECTRONICALLY SIGNED BY: DATE: EXAM: CT Abdomen and Pelvis with Intravenous Contrast CLINICAL HISTORY: 55-year-old female with abdominal pain. TECHNIQUE: Axial computed tomography images of the abdomen and pelvis with intravenous contrast. Dose reduction technique was used including one or more of the following: automated exposure control, adjustment of mA and kV according to patient size, and/or iterative reconstruction. CONTRAST: Omnipaque 350, 75 mL COMPARISON: None provided. FINDINGS: LUNG BASES: Atelectasis and scarring at the lung bases. LIVER: Unremarkable. GALLBLADDER AND BILE DUCTS: Tiny gallstone seen. PANCREAS: Unremarkable. SPLEEN: Unremarkable. ADRENAL GLANDS: Unremarkable. KIDNEYS, URETERS, AND BLADDER: Dueñas catheter seen in the bladder lumen. No hydronephrosis or nephrolithiasis. No ureteral calculi. STOMACH AND BOWEL: Edema or loops of small bowel suggesting moderate small bowel enteritis. Free air in the upper abdomen is seen, suggesting perforated bowel. No obstruction. APPENDIX: No CT evidence for appendicitis. PERITONEUM: Moderate ascites in the abdomen and pelvis. No free air under the diaphragm. LYMPH NODES: No lymphadenopathy. REPRODUCTIVE: Unremarkable as visualized. VASCULATURE: No aortic aneurysm. ABDOMINAL WALL AND SOFT TISSUES: There is air in the subcutaneous soft tissue seen anteriorly, suggesting recent postsurgical changes; please correlate with surgical history. BONES: No fracture or suspicious osseous abnormality. IMPRESSION: 1. Moderate small bowel enteritis with free air in the upper abdomen, suggesting perforated bowel versus post surgical changes. No obstruction. 2. Moderate ascites in the abdomen and pelvis. 3. Air in the subcutaneous soft tissue anteriorly, suggesting recent postsurgical changes; please correlate with surgical history. /[place] DICTATED BY: EDWIGE LEDESMA MD DATE: 07/20/252317 ELECTRONICALLY SIGNED BY: EDWIGE LEDESMA MD DATE: 07/20/252317 ASSESSMENT: Acute kidney injury Bilious peritonitis 2 mm perforation of the colonic anastomosis Diabetes Mellitus Type 2 Septic Shock Cirrhosis of liver Oesophageal Varices PLAN: Labs, diagnostic, radiologic exams reviewed and interpreted by myself and supervising physician. We have reviewed external records in detail Require close monitoring of renal function and electrolytes Order CBC, CMP, and electrolytes in am Continue with antibiotics BiPAP as necessary, for respiratory distress Monitor blood pressure adjust medication doses as needed Avoid hypotensive episodes May use Dilaudid 0.5 mg IV every 6 hours as needed for severe pain Monitor blood sugars Strict intake, output, and daily weight should be monitored Please renally adjust medications Avoid nephrotoxic and nonsteroidal drugs Avoid contrast if possible Will continue to monitor renal function, anemia, electrolytes Treatment plan discussed with patient Questions were answered We have discussed with the other team physicians in detail about the care plan We will continue to monitor the patient closely ATTESTATION BY PHYSICIAN I have seen and examined the patient. I reviewed the documentation, medical decision making, and treatment plan as noted by the mid-level provider above. I agree with the findings and plan of care. CIELO PORTILLO MD, [facility] Aug 02, 2025 13:15
--- NOTE | 2025-08-02 14:19 | NUR ---
Nutritional Note: Chart, meds, and labs Reviewed. Pt on climinix 4.25/5% @80ml/hr provides 82gm pro, 102gm dextrose, 653kcal. Recommend: -continue PPN until pt able to toleate > 75% of meals. -Consider alternate nutrition support if oral intake inadequate and prolonged >3-5days. -If GI status allows consider advancement to GI soft diet for increased calorie/protein density. - Electrolyte replacements per protocol -Nephrovite MVI combination of B vitamins may be used to treat or prevent vitamin deficiency due to poor diet. -Magic Cup 4oz w/ PM tray: Provides 9gm pro/ 290kcal and 20 vitamins and minerals. [place] to serve with meals as a means of adding calories and protein for unintended weight loss. -ProStat BID (30 ml) JELLO Which will aid in wound healing. Balance protein calorie intake to promote wound healing. This provides 3.3 mg L-arginine, 15 gm protein and 100 kcal per 30 ml -Monitor feeding tolerance, %, wt, and labs -Document PO intake and wt daily. -If No BM >3days consider bowel stimulant. -Consider appetite stimulant if intake remains <75%for 3 days. -Schedule outpatient RD f/u for long-term nutrition care. - Notify RD if additional nutrition concerns arise. SEE RD Nutritional Assessment for additional assessment information. Addendum: 08/02/25 at [address] Amended: Links added.
--- NOTE | 2025-08-02 17:07 | PN ---
[facility] PROGRESS NOTE Date of Service: Aug 02, 2025 Time of Service: 17:02 SUBJECTIVE: Ms. Gray is a 55-year-old female that was seen and examined today on 07/20/2025. Patient reports that she came to the emergency department with a chief complaint of abdominal pain. Onset was 07/09/2025. Location is all four quadrants. Duration is constant. Character is described as pressure and " like I have a lot of gas trapped. " there was no alleviating factors. There was no aggravating factors. Patient reports associated abdominal swelling. 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 After the discharge she was taking pain medications and her condition started worsening after few days. She is in constant follow up with Dr Gann. Today in the emergency department WBCs 21.2, left shift neutrophils 85.5%, BUN 26, creatinine 3.1, GFR 17, lactic acid 8.0, no urinalysis has been collected or sent to lab, CT of abdomen and pelvis showed of free air in the abdomen which could be a suspected bowel perforation versus postsurgical changes, moderate ascites, fissure post surgical changes. Chest x-ray shows right pleural effusion. Additionally patient had a heart rate of 125, respirations 26, together with leukocytosis and lactic acidosis patient met clinical sepsis criteria additionally patient's blood pressure dropped to 85/50 mmHg requiring vasopressor support therefore meeting criteria for septic shock. Patient will be admitted to the intensive care unit. Emergency room physician spoke with patient's surgeon, Dr. Gann who requested patient be admitted under hospitalist service and she will follow this case along. 07/21/25 Patient was evaluated at the bedside. She was accompanied by her daughter. She is oriented to the time, place and person. She complained of abdominal pain in all the quadrants. She hasn't had bowel movement since Saturday and also is unable to pass flatus at this time. She has guarding, rigidity and tenderness all over the abdomen, showing the signs of peritonitis. She was seen by Dr Gann this mo rning and is planned to be taken to OR this afternoon. Dueñas catheter is in place, as she wasn't able to pass the urine. There is no fever, chills and any other signs of infection. 07/22/25 Patient was evaluated at the bedside. She was accompanied by her daughter. She is oriented to the time, place and person. She underwent Diagnostic laparoscopy, abdominal washout, drain placement and diverting loop ileostomy creation, The procedure revealed Bilious peritonitis, 2 mm perforation of the colonic anastomosis. She is hemodynamically stable with Blood pressure of 110/73 and HR of 83. Currently she complains of abdominal pain which is getting better than yesterday, its 3-4/10 intensity. There is no rigidity. She is anxious about the outcomes and had discussion regarding her current clinical status and lab parameters. There is no fever, chills and any other signs of infection. 07/23/25 Patient was evaluated at the bedside. She was accompanied by her daughter. She is oriented to the time, place and person. She status post diagnostic laparoscopy, abdominal washout, drain placement and diverting loop ileostomy creation. Currently she complains of abdominal pain which is 5/10 intensity. She also complaints of mild lower back pain There is no fever, chills and any other signs of infection. She has CHRIS drain in-situ with clear fluid along with colostomy bag. She is currently tolerating clear liquid diet. 07/24/2025 Patient is seen and examined at the bedside. Vitals blood pressure ranging in 100s/50s, pulse rate 50s, SpO2 greater than 95% on room air. She mentions about experiencing pressure-like discomfort on the right side of the abdomen and pain when she tries to eat. No acute events last night. She denies fever, chills, nausea, vomiting, chest pain. CHRIS output approximately 100cc/hr, serosanguineous fluid. Ileostomy bag in place. She is tolerating clear liquid diet without any nausea/vomiting. Labs hemoglobin 9.8, BUN 38, creatinine improved from 1.6-1.1. 07/25/2025 Patient is seen and examined at the bedside. She complains of abdominal pain which is 7/10 in intensity. No acute events last night. She denies fever, chills, nausea, vomiting, chest pain. CHRIS output approximately 100cc/hr, serosanguineous fluid. Ileostomy bag in place. The patient has been started on spironolactone 25mg BID and Lasix 20 mg once daily. There is high output from CHRIS but it is clear serous, most likely related to her ascites from her history of liver cirrhosis. She is tolerating clear liquid diet without any nausea/vomiting. 07/26/2025 Patient is seen and examined at the bedside. She complains of abdominal pain which remains constant. No acute events last night. She denies fever, chills, nausea, vomiting, chest pain. Patient is status post with a CHRIS drain. The drain has been collecting the serosanguineous fluid secondary to ascites. She has been tolerating liquid diet and her diet has been advanced to soft diet. She still nielsen s bloating for which probiotics and fibers has been recommended. Hemoglobin has gradually trended down to 9.2 and was given IV Venofer. Patient to get up and ambulate and work with physical therapy. 07/27/2025 Patient is seen and examined at the bedside. She complains of abdominal pain which is 6/10 in intensity. No acute events last night. She denies fever, chills, nausea, vomiting, chest pain. Patient is unable to tolerate the soft diet, hence she is currently receiving the liquid diets. The CHRIS drain output is still high and there was small amount of drainage observed in the right ileostomy. 07/28/2025 Patient is seen and examined at the bedside. She complains of abdominal pain which is 9/10 in intensity. No acute events last night. She denies fever, chills, nausea, vomiting, chest pain. Patient reported pain after eating but no nausea or vomiting. WBC is gradually trending up from 8.3-7.3-11.1-11.8. She had lidocaine patch placed this morning. She was started on simethicone 80 mg yesterday. Pertinent she is currently receiving Dilaudid 0.5 mg. Abdominal ultrasound has been ordered for further assessment. 07/29/2025 Patient is seen and examined at the bedside. She continues to complain of severe abdominal pain, rated 9/10 in intensity, unchanged from prior. She is currently receiving Dilaudid 0.5 mg for pain. She reports discomfort related to Dueñas catheterization. She denies fever, chest pain, nausea or vomiting at this time. No acute events were reported overnight. Blood pressure noted today is noted to be 98/54 mm Hg which is slightly low. Per surgery team, stoma is likely to be removed today. Hemoglobin has trended down from 9.7 g/dl to 9.0 g/dl. 07/30/2025 Patient is seen and examined at the bedside. She continues to complain of severe abdominal pain. Her abdominal distention has slightly improved. Dueñas's catheter was removed due to persistent discomfort. We will continue with scheduled removal of the ascites fluid and from CHRIS bulb. Ultrasound of abdomen was concerning for cholelithiasis with biliary sludge and gallbladder distention. HIDA scan was performed today. If consistent with cholecystitis patient will need cholecystostomy tube placement. 07/31/2025 Patient is seen and examined at the bedside. She was accompanied by her daughter. She continues to complain of severe abdominal pain. She is currently on Dilaudid 0.5mg Q4H PRN, which relieves the symptoms for 2-3 hours, after that she develops same level of pain and discomfort again. Currently awaiting the HIDA scan results. Her sodium level is 133 and albumin level is trending downwards from 2.3 to 2.1. Her Iron panel results showed: Iron 20L, TIBC 147L and %sat 16.3L. For her continuos pain she is started on Fentanyl 25mcg. CHRIS drain culture has beens sent. Based on the results of HIDA scan, CT chest will be planned. 08/01/2025: Patient is seen and examined this morning at bedside. She was accompanied by her daughter. The patient complains of severe abdominal pain. She is currently being managed with Coleman, and Dilaudid for breakthrough pain. HIDA scan results are back, and show acute cholecystitis. Surgery has been made aware of the results. IR has been consulted for cholecystostomy tube placement. The patient will be started on PPN, as recommended by general surgery. The patient follows with Dr. Sol outpatient for her liver cirrhosis. The patients daughter would like her boil off machine operator cloth Dr. Sol to be involved in the patients care, and be updated with her status. 08/02/2025: Patient is seen and evaluated in the room 432. She was accompanied by her daughter. She complains of severe abdominal pain. She also complained of bleeding through her vagina, pink tinged urine. Her vitals are in the normal range. Her labs are in the normal range except for Hb is 8.6, Na is 135, K is 5.2, BUN is 4, Glucose is 150, CRP is 103.90. She went for placement of cholecystectomy tube by IR. We did a pelvic exam and ordered a vaginal estrogen cream and urinalysis. Also for her hyperkalemia we checked the potassium again and its 4.1. So we will repeat the labs tomorrow. We ordered a dose of albumin for her. REVIEW OF SYSTEMS CONSTITUTIONAL: No fever, chills, or night sweats. NEUROLOGICAL: Denies headache, sensory and motor deficit. CARDIOVASCULAR: Denies any exertional angina, dyspnea on exertion, palpitations . PULMONARY: Denies any shortness of breath, cough, phlegm/sputum, hemoptysis, pleuritic chest pain. GASTROINTESTINAL: Patient complains of diffuse abdominal pain 9/10 intensity. She also has bloating. Denies nausea, vomiting. GENITOURINARY: Denies frequency, urgency, nocturia, hematuria or incontinence. PHYSICAL EXAM GENERAL APPEARANCE: The patient is alert, awake and oriented and bedbound. NEUROLOGICAL: No sensory and motor deficits. CHEST: Normal chest expansion. LUNGS: Normal Vesicular breath sound. Absence of any rales, rhonchi or any wheezing. CARDIOVASCULAR: Regular. S1 and S2 normal. No appreciable rubs, murmurs or gallops. ABDOMEN: Abdomen is soft and slightly tender. CHRIS drain is placed. Ileostomy creation. Absence of guarding, rigidity and rebound tenderness. GENITOURINARY: No suprapubic tenderness. No costovertebral angle tenderness. Vital Signs (last 8hr) Date Time Temp Pulse Resp B/P (MAP) Pulse Ox O2 Delivery O2 Flow Rate FiO2 08/02/25 16:40 90 16 110/68 97 Room Air 08/02/25 15:40 89 16 111/67 98 Room Air 08/02/25 14:40 84 16 110/64 99 Room Air 08/02/25 14:10 98.2 89 16 106/60 97 Room Air 08/02/25 13:40 89 16 104/58 94 Room Air 08/02/25 13:25 89 17 102/55 97 Room Air 08/02/25 13:10 90 17 99/59 93 Room Air 08/02/25 12:55 98.2 91 17 116/68 95 Room Air LABS: Laboratory: Test 08/02/25 15:59 08/02/25 12:59 08/02/25 04:30 08/01/25 05:13 Range/Units Whole Blood Glucose 150 H 70-110 MG/DL Potassium Level 4.7 3.5-5.1 mmol/L White Blood Count 7.4 4.8-10.8 K/uL Red Blood Count 2.94 L 4.00-5.50 MIL/uL Hemoglobin 8.6 L 12.0-16.0 g/dL Hematocrit 27.9 L 36-48 % Mean Corpuscular Volume 94.9 79-99 fL Mean Corpuscular Hemoglobin 29.3 27.0-33.0 pg Mean Corpuscular Hemoglobin Concent 30.8 L 32.0-36.0 g/dL Red Cell Distribution Width 17.4 H 11.0-15.5 % Platelet Count 246 130-400 K/uL Mean Platelet Volume 9.5 7.5-10.5 fL Immature Granulocyte % (Auto) 0.7 0-1 % Neutrophils (%) (Auto) 74.7 40.0-77.0 % Lymphocytes (%) (Auto) 11.7 L 21.0-51.0 % Monocytes (%) (Auto) 11.3 3.0-13.0 % Eosinophils (%) (Auto) 1.2 0.0-8.0 % Basophils (%) (Auto) 0.4 0.0-5.0 % Neutrophils # (Auto) 5.5 1.8-7.7 K/uL Lymphocytes # (Auto) 0.9 L 1.0-4.8 K/uL Monocytes # (Auto) 0.8 0.1-1.0 K/uL Eosinophils # (Auto) 0.09 0.00-0.70 K/uL Basophils # (Auto) 0.03 0.00-0.20 K/uL Absolute Immature Granulocyte (auto 0.05 0-1 K/uL Nucleated Red Blood Cells 0.0 0.0-0.19 % Red Blood Cell Morphology See comments Prothrombin Time 13.6 H 9.6-11.6 SEC Prothromb Time International Ratio 1.32 H 0.85-1.15 Activated Partial Thromboplast Time 35.3 26.3-35.5 SEC Sodium Level 135 L 136-145 mmol/L Chloride Level 104 101-111 mmol/L Carbon Dioxide Level 23 21-32 mmol/L Blood Urea Nitrogen 4 L 7-18 mg/dL Creatinine 0.6 0.5-1.0 mg/dL Glomerular Filtration Rate Calc 105 >90 mL/min Random Glucose 244 #H 70-105 mg/dL Total Calcium 8.1 L 8.5-10.1 mg/dL Phosphorus Level 3.7 2.5-4.9 mg/dL Total Bilirubin 0.5 0.2-1.0 mg/dL Aspartate Amino Transf (AST/SGOT) 20 10-37 U/L Alanine Aminotransferase (ALT/SGPT) 9 L 12-78 U/L Alkaline Phosphatase 67 50-136 U/L C-Reactive Protein, Quantitative 103.90 H 0.5-3.0 mg/L Total Protein 5.6 L 6.0-8.3 g/dL Albumin 2.0 L 3.5-5.0 g/dL Procalcitonin 0.11 0.05-0.5 ng/mL Magnesium Level 1.70 L 1.80-2.40 mg/dL Test 08/01/25 04:07 Range/Units Body Fluid Source CHRIS DRAIN Body Fluid Volume 35 mL Body Fluid Color YELLOW LT YELLOW Body Fluid Supernatant Appearance CLOUDY H CLEAR Body Fluid WBC 865 /cu. mm. Body Fluid RBC 1280 /cu. mm. Body Fluid Neutrophils 15.0 % Body Fluid Lymphocytes 72 % Body Fluid Monocytes % 8 % Body Fluid Macrophages (%) 3 Body Fluid Mesothelial Cells (%) 2 % Current Medications Medications (Trade) Dose Ordered Sig/Gregory Route PRN Reason Start Time Stop Time Status Last Admin Dose Admin Acetaminophen (TYLenol 500MG TAB) 500 mg Q6H6 PRN PO MILD PAIN (1-3) 07/27/25 16:30 08/26/25 16:29 Acetaminophen (TYLenol 650MG SUPPOSITORY) 650 mg Q6H PRN RC MILD PAIN (1-3) 07/21/25 00:00 07/27/25 16:22 DC Acetaminophen/ Hydrocodone Bitart (NORco 5/325MG) 1 tab Q4H PRN PO MODERATE PAIN (4-6) 07/31/25 16:30 08/05/25 16:29 08/02/25 03:00 1 TAB Albumin Human 100 ml @ 0 mls/hr ONCE IV 07/25/25 12:00 07/26/25 11:59 DC 07/25/25 13:43 100 MLS/HR Clotrimazole (Lotrimin) 1 GM BID TP 07/29/25 21:00 08/28/25 20:59 08/02/25 09:43 1 GM Cyclobenzaprine HCl (Cyclobenzaprine HCl) 5 mg TID PO 07/25/25 14:00 07/26/25 14:00 DC 07/26/25 14:19 5 MG Fentanyl (DURAgesic 25 MCG/HR PATCH) 25 mcg Q72H TD 07/31/25 14:30 07/31/25 14:44 DC Fluconazole/ Sodium Chloride (DiFLUCan 200 MG/ NS 100 ML) 200 mg Q24H IVPB 07/21/25 21:00 08/20/25 20:59 08/01/25 20:14 200 MG Furosemide (LASix 20MG TAB) 20 mg DAILY PO 07/25/25 11:00 08/02/25 11:53 DC 08/02/25 09:42 20 MG Gabapentin (NEURontin 100 mg CAP) 100 mg TID PO 07/29/25 14:00 08/02/25 09:21 DC 08/01/25 20:14 100 MG Hydromorphone HCl (DiLAUDid 0.5MG INJ) 0.5 mg Q4H PRN IVP SEVERE PAIN (7-10) 07/24/25 10:00 07/29/25 09:59 DC 07/29/25 08:22 0.5 MG Hydromorphone HCl (DiLAUDid 0.5MG INJ) 0.5 mg Q4H PRN IVP SEVERE PAIN (7-10) 07/29/25 13:30 08/03/25 13:29 08/02/25 16:06 0.5 MG Insulin Human Regular (humuLIN R 100 UNIT/ML 3ML) INSULIN SLIDING SCAL... ACHS SQ 07/21/25 07:30 08/20/25 07:29 07/22/25 20:40 3 UNIT Lactated Ringer's 1,000 ml @ 75 mls/hr [id number] IV 07/21/25 00:00 07/21/25 13:17 DC 07/21/25 02:57 75 MLS/HR Lactated Ringer's 1,000 ml @ 75 mls/hr [id number] IV 07/21/25 13:30 07/24/25 11:09 DC 07/24/25 09:27 75 MLS/HR Lactobacillus Rhamnosus ([facility]) 1 each DAILY20 PO 07/26/25 20:00 08/25/25 19:59 08/01/25 20:14 1 EACH Lidocaine (Lidoderm Patch 5%) 1 patch DAILY TP 07/28/25 09:00 08/27/25 08:59 08/02/25 09:42 1 PATCH Magnesium Sulfate 50 ml @ 0 mls/hr PROTOCOL PRN IV MAGNESIUM PROTOCOL 07/21/25 07:00 08/20/25 06:59 08/01/25 06:05 25 MLS/HR Metronidazole/ Sodium Chloride (flaGYL) 500 mg Q8H IV 07/21/25 14:00 07/21/25 13:40 DC Morphine Sulfate (morPHINE 2MG SYG) 2 mg Q4H PRN IVP SEVERE PAIN (7-10) 07/21/25 00:30 07/21/25 13:18 DC 07/21/25 04:46 2 MG Morphine Sulfate (morPHINE 4MG SYG) 4 mg Q3H PRN IV MODERATE PAIN (4-6) 07/21/25 13:30 07/26/25 16:29 DC 07/26/25 10:51 4 MG Norepinephrine 250 ml @ 0 mls/hr PROTOCOL IV 07/20/25 23:30 08/19/25 23:29 07/21/25 10:56 18.45 MLS/HR Ondansetron HCl (zoFRAN 4MG INJ) 4 mg Q4H PRN IVP NAUSEA 07/21/25 13:30 08/20/25 13:29 Ondansetron HCl (zoFRAN 4MG INJ) 4 mg Q6H PRN IV NAUSEA/VOMITING 07/21/25 00:00 07/21/25 13:18 DC Pantoprazole Sodium (PROTonix 40MG INJ) 40 mg BID IV 07/26/25 21:00 08/20/25 08:59 08/02/25 09:42 40 MG Pantoprazole Sodium (PROTonix 40MG INJ) 40 mg DAILY IV 07/21/25 09:00 07/26/25 09:31 DC 07/26/25 08:55 40 MG Pharmacy Profile Note (Pharmacy Communication) 1 each ONCE MISC 07/21/25 15:30 07/21/25 15:16 DC Piperacillin Sod/ Tazobactam Sod 50 ml @ 200 mls/hr ONCE STAT IVPB 07/20/25 19:15 07/20/25 19:29 DC 07/20/25 20:32 200 MLS/HR Piperacillin Sod/ Tazobactam Sod (Zosyn 3.375gm+NS 50ml) 3.375 gm Q12H IV 07/21/25 00:00 07/31/25 00:00 DC 07/30/25 23:55 3.375 GM Piperacillin Sod/ Tazobactam Sod (Zosyn 3.375gm+NS 50ml) 3.375 gm Q8H IVPB 07/31/25 11:30 08/10/25 11:29 08/02/25 14:09 3.375 GM Potassium Chloride 100 ml @ 100 mls/hr AD PRN IV POTASSIUM PROTOCOL 07/24/25 08:30 08/23/25 08:29 07/30/25 06:23 100 MLS/HR Potassium Chloride (K-Dur/Klor-Con 20meq) 20 meq AD PRN PO POTASSIUM PROTOCOL 07/24/25 08:30 08/23/25 08:29 07/27/25 20:33 20 MEQ Potassium Chloride (KCl 10% Elixir 20meq/15ml) 20 meq AD PRN PO POTASSIUM PROTOCOL 07/24/25 08:30 08/23/25 08:29 07/31/25 08:15 20 MEQ Psyllium Hydrophilic Mucilloid (Metamucil) 1 tbs BID PO 07/26/25 21:00 08/25/25 20:59 08/01/25 20:25 1 TBS Simethicone (Mylicon) 80 mg Q6H6 PO 07/27/25 12:00 08/26/25 11:59 08/02/25 06:27 80 MG Sodium Bicarbonate 150 meq/Sodium Chloride 1,150 ml @ 0 mls/hr Q0M IVP 07/21/25 14:00 07/26/25 09:31 DC Sodium Chloride (NS 50ml) 50 ml AD IV 07/31/25 11:30 07/31/25 11:12 DC Spironolactone (Aldactone 25mg) 25 mg BID PO 07/25/25 21:00 07/26/25 09:01 DC 07/26/25 08:56 25 MG Sucralfate (Carafate) 1 gm ACHS PO 07/29/25 21:00 08/28/25 20:59 08/02/25 16:05 1 GM Thiamine HCl (Vitamin B-1) 100 mg DAILY IVP 07/22/25 21:00 08/21/25 20:59 08/02/25 09:42 100 MG Thiamine HCl 100 mg/Sodium Chloride 50 ml @ 100 mls/hr Q24H IM 07/21/25 15:30 07/21/25 16:25 DC Vancomycin HCl (Vancomycin 1g/ 250ml Kit) 1 gm ONCE STAT IV 07/20/25 21:23 07/20/25 21:26 DC 07/20/25 22:06 1 GM Vasopressin 20 units/Sodium Chloride 100 ml @ 0 mls/hr PROTOCOL IV 07/21/25 00:30 08/20/25 00:29 07/21/25 00:10 9 MLS/HR DIAGNOSTICS / RADIOLOGY: [ ] ASSESSMENT: Suspected Bowel Perforation POA Bacterial peritonitis Cholelithiasis Small Bowel Obstruction, Suspected Anastomotic Leak Bilious peritonitis s/p Diagnostic laparoscopy, abdominal washout, drain placement and diverting loop ileostomy creation Atrophic vaginitis hyperkalemia Iron Deficiency anemia Diabetes Mellitus Type 2 POA Acute Kidney Injury POA Septic Shock POA Cirrhosis of liver POA Esophageal Varices Recent Robotic takedown of splenic flexure mobilization, robotic takedown of colovesical fistula with sigmoid colectomy and end-to-end anastomosis surgery PLAN: Bilious peritonitis status post Diagnostic laparoscopy, abdominal washout, drain placement and diverting loop ileostomy creation She is on full liquid diet. -Continue close monitoring of the patient -continue physical therapy -Monitor CHRIS drain output -Continues with high output from CHRIS but it is clear serous, most likely related to her ascites from her history of liver cirrhosis -Continue Lactated Ringer's at 75 ml/hr for volume resuscitation and electrolyte replacement -continue Zosyn [day 13] and fluconazole [day 13] -Flexeril 5 mg t.i.d. has been started by the Surgery team. -Probiotics and Fibers have been added for bloating. -Protonix IV increased to twice daily. - Patient has been started on Coleman by general surgery for abdominal pain, and is advised to take Diluadid only for breakthrough pain. -HIDA scan positive for acute cholecystitis. Surgery has been made aware. - IR did a Fluoroscopy and ultrasound-guided placement of cholecystotomy tube and cholecystogram today. -The patients family are requesting their boil off machine operator cloth Dr. Sol to be involved with the patients care. Bacterial Peritonitis * Post Surgical patient with Bacterial peritonitis positive for ESBL * Culture and sensitivity shows susceptibility to Zosyn, Gentamicin and Meropenem. * Likely secondary to post-operative intraabdominal infection with risk of ongoing contamination. * Currently patient is on Zosyn (Day 13) * For her continuos pain she is started on Fentanyl 25mcg. CHRIS drain culture has beens sent. Cholelithiasis * Patient complained of upper abdominal pain * Ultrasound abdomen showed: Cirrhotic-appearing liver * Cholelithiasis and biliary sludge with gallbladder distension and Small volume ascites. * Hida scan shows acute cholecystitis. * Per Surgery: IR to be consulted for cholecystostomy tube placement. * IR did a Fluoroscopy and ultrasound-guided placement of cholecystotomy tube and cholecystogram today. Small Bowel Obstruction, Suspected * Patient complaints of abdominal pain which is 9/10 on intensity * Abdominal Xray showed: Dilated small bowel loops are seen in mid abdomen * Perform Serial abdominal exams * Pain management(avoid excess opioids if ileus is suspected) * Evaluate drain, bowel status * Monitor for resolution vs progression of Ileus/obstruction. 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 - CT abdominal pelvis w/contrast done on 07/20/2025 showed Free air in the upper abdomen is seen, suggesting perforated bowel vs post surgical changes. No obstruction. -underwent Diagnostic laparoscopy, abdominal washout, drain placement and diverting loop ileostomy creation for biliary peritonitis Atrophic vaginitis * She complained of bleeding through her vagina. * We did a pelvic examination. * Ordered a urinalysis and topical estrogen. hyperkalemia * Today his potassium is 5.2 * We rechecked her potassium. The repeat value is 4.7 * Will repeat her labs tomorrow. Iron Deficiency anemia * Hemoglobin has trended down from 8.9 to 8.6. 08/02/25 * Iron sucrose (venofer) has been ordered. * Anemia panel has been ordered. Results showed Iron 24L, %sat 16.3 and TIBC 147L. 07/30/25 * Recommend trending Hgb and transfuse as needed to goal Hgb >7. * Plan to initiate the patient on Venofer, her last dose of Venofer was 200 mg on 07/26/2025 * Iron level is 20L, % saturation 11.9, TIBC 167L, Ferritin 129. 9 Septic Shock -resolved -Her WBC is 8.6 today. 08/02/25 -Her WBC during the presentation was 21.2 and today its 7.3. 07/26/25 -lactic acid is 1.5 on 07/31/2025 -blood and urine culture results are negative Acute Kidney Injury Resolved -Creatinine improved from 1.6-1.1-0.7-0.6-0.6-0.6-0.6-0.6-0.5-0.6-0.6. 08/02/25 -Initial FeNA is 0.1 %, probably secondary to dehydration and NSAIDs overuse. -initial Urine sodium is < 13 and urine creatinine is 132.17. -Avoid nephrotoxic agents, eg. NSAIDS. -Weight patient daily. -Monitor intake and output. -Ordered urinalysis Cirrhosis of liver -Patient has a past history of cirrhosis of liver. - Liver functions are within normal limits. AST 20, ALT 9 and ALP 67. - Avoid NSAIDs and high dose acetaminophen. -Maintain appropriate volume of the patient. -Patient has been started on Spironolactone 25 mg b.i.d. and Lasix 20 mg once daily. 07/25/25 -Albumin is given today for the hypotension. -Patients family is requesting that Dr. Sol be involved in the patients care. Supportive measures -Maintain IV fluids, correct electrolytes -Serial abdominal exams -Cyber Intelligence Analyst on avoidance of NSAIDS and other related triggers. -Monitor Vitals and perform morning labs regularly Continue GI prophylaxis with Pantop Continue DVT prophylaxis with SCDs, we will avoid heparin due to history of al lergies to porcine, we will coordinate with surgery consult on initiation of other anticoagulants ATTESTATION BY PHYSICIAN I have seen and examined the patient. I reviewed the documentation, medical decision making, and treatment plan as noted by the resident provider above. I agree with the findings and plan of care. Miguel Conley MD, AKSHAY MD Aug 02, 2025 17:07
[2025-08-02] MEDS ORDERED: ALBUMIN (HUMAN) 25% 50 ML IV SCH (18:30)
[2025-08-02] MEDS: M.V.I. IV [ADULT] 10 ML, MULTITRACE-4 ADULT 10ML VIAL 3 ML in CLINIMIX-E4.25%AA/D5+LYT2... IV ONE (21:08)
[2025-08-02] MEDS: ALBUMIN (HUMAN) 25% 50 ML IV SCH (21:37)
--- NOTE | 2025-08-02 23:25 | PN ---
INFECTIOUS DISEASE PROGRESS NOTE Date of Service: Aug 02, 2025 SUBJECTIVE: This 55 year old female patient who was seen at bedside in room 432 this afternoon. A HIDA scan resulted in acute cholecystitis and during visit today patient had just come back from a cholecystostomy tube placement to the right side which is draining yellowish drainage. No fever, temperature is 98.2. Continues on Zosyn and fluconazole. We will follow up on the cultures results. PHYSICAL EXAM EYES: Anicteric. Pupils equal and reactive. HENT: No oral thrush seen, moist Oral mucosa. NECK: Supple, no JVD or thyromegaly. LUNGS: Good air entry. No rales, no rhonchi. CARDIOVASCULAR: S1, S2 regular. No murmur heard. ABDOMEN: Soft, non tender, bowel sounds present, no organomegaly. CHRIS drain. Ileostomy creation. CENTRAL NERVOUS SYSTEM: Awake, alert, oriented x 3. SKIN: No rashes, no swelling. LYMPHATICS: No peripheral lymphadenopathy. MUSCULOSKELETAL: No joint swelling, erythema or tenderness. EXTREMITIES: No cyanosis or clubbing. BACK: No deformity, no pressure ulcer. GENITOURINARY: No dysuria or hematuria. Vital Sign (Last 12 Hours) 08/02/25 08/02/25 08/02/25 08/02/25 12:55 13:10 13:25 13:40 Temp 98.2 Pulse 91 90 89 89 Resp 17 17 17 16 B/P (MAP) 116/68 99/59 102/55 104/58 Pulse Ox 95 93 97 94 O2 Delivery Room Air Room Air Room Air Room Air 08/02/25 08/02/25 08/02/25 08/02/25 14:10 14:40 15:40 16:40 Temp 98.2 Pulse 89 84 89 90 Resp 16 16 16 16 B/P (MAP) 106/60 110/64 111/67 110/68 Pulse Ox 97 99 98 97 O2 Delivery Room Air Room Air Room Air Room Air 08/02/25 08/02/25 20:00 20:59 Temp 99.1 Pulse 90 Resp 18 B/P (MAP) 113/59 Pulse Ox 95 O2 Delivery Room Air Room Air* O2 Flow Rate 0 FiO2 21 Intake & Output (last 24hrs) 08/01/25 08/01/25 08/02/25 15:00 23:00 07:00 Intake Total 140.0 ml Output Total 100 ml 1360 ml 950 ml Balance -100 ml -1220.0 ml -950 ml LABS: Laboratory: Test 08/02/25 21:06 08/02/25 12:59 08/02/25 04:30 08/01/25 05:13 Range/Units Whole Blood Glucose 163 H 70-110 MG/DL Potassium Level 4.7 3.5-5.1 mmol/L White Blood Count 7.4 4.8-10.8 K/uL Red Blood Count 2.94 L 4.00-5.50 MIL/uL Hemoglobin 8.6 L 12.0-16.0 g/dL Hematocrit 27.9 L 36-48 % Mean Corpuscular Volume 94.9 79-99 fL Mean Corpuscular Hemoglobin 29.3 27.0-33.0 pg Mean Corpuscular Hemoglobin Concent 30.8 L 32.0-36.0 g/dL Red Cell Distribution Width 17.4 H 11.0-15.5 % Platelet Count 246 130-400 K/uL Mean Platelet Volume 9.5 7.5-10.5 fL Immature Granulocyte % (Auto) 0.7 0-1 % Neutrophils (%) (Auto) 74.7 40.0-77.0 % Lymphocytes (%) (Auto) 11.7 L 21.0-51.0 % Monocytes (%) (Auto) 11.3 3.0-13.0 % Eosinophils (%) (Auto) 1.2 0.0-8.0 % Basophils (%) (Auto) 0.4 0.0-5.0 % Neutrophils # (Auto) 5.5 1.8-7.7 K/uL Lymphocytes # (Auto) 0.9 L 1.0-4.8 K/uL Monocytes # (Auto) 0.8 0.1-1.0 K/uL Eosinophils # (Auto) 0.09 0.00-0.70 K/uL Basophils # (Auto) 0.03 0.00-0.20 K/uL Absolute Immature Granulocyte (auto 0.05 0-1 K/uL Nucleated Red Blood Cells 0.0 0.0-0.19 % Red Blood Cell Morphology See comments Prothrombin Time 13.6 H 9.6-11.6 SEC Prothromb Time International Ratio 1.32 H 0.85-1.15 Activated Partial Thromboplast Time 35.3 26.3-35.5 SEC Sodium Level 135 L 136-145 mmol/L Chloride Level 104 101-111 mmol/L Carbon Dioxide Level 23 21-32 mmol/L Blood Urea Nitrogen 4 L 7-18 mg/dL Creatinine 0.6 0.5-1.0 mg/dL Glomerular Filtration Rate Calc 105 >90 mL/min Random Glucose 244 #H 70-105 mg/dL Total Calcium 8.1 L 8.5-10.1 mg/dL Phosphorus Level 3.7 2.5-4.9 mg/dL Total Bilirubin 0.5 0.2-1.0 mg/dL Aspartate Amino Transf (AST/SGOT) 20 10-37 U/L Alanine Aminotransferase (ALT/SGPT) 9 L 12-78 U/L Alkaline Phosphatase 67 50-136 U/L C-Reactive Protein, Quantitative 103.90 H 0.5-3.0 mg/L Total Protein 5.6 L 6.0-8.3 g/dL Albumin 2.0 L 3.5-5.0 g/dL Procalcitonin 0.11 0.05-0.5 ng/mL Magnesium Level 1.70 L 1.80-2.40 mg/dL Test 08/01/25 04:07 Range/Units Body Fluid Source CHRIS DRAIN Body Fluid Volume 35 mL Body Fluid Color YELLOW LT YELLOW Body Fluid Supernatant Appearance CLOUDY H CLEAR Body Fluid WBC 865 /cu. mm. Body Fluid RBC 1280 /cu. mm. Body Fluid Neutrophils 15.0 % Body Fluid Lymphocytes 72 % Body Fluid Monocytes % 8 % Body Fluid Macrophages (%) 3 Body Fluid Mesothelial Cells (%) 2 % ASSESSMENT: Acute cholecystitis, status post cholecystostomy tube. Hypoxic respiratory failure requiring oxygen support. Septic shock. Generalized peritonitis with ESBL and E coli infection. Infection with multidrug resistant organism. Abdominal pain. Hypoalbuminemia. Suspected bowel perforation, s/p diagnostic laparoscopy, abdominal washout, ileostomy creation and CHRIS drain placement on 07/21/2025. Leukocytosis, resolved. Acute renal failure, resolved. Diabetes mellitus. Recent colovesical fistula repair with sigmoid colon resection and anastomosis on 07/09/2025 PLAN: Continue Zosyn. Continue fluconazole. Continue pain management. Avoid nephrotoxic medications. Continue GI prophylaxis. Continue antidiabetics. Continue physical therapy. We will follow up on the culture results. This case was reviewed and discussed with my supervising physician Dr. Roger and the above assessment and plan was formulated and agreed upon. ATTESTATION BY PHYSICIAN I have seen and examined the patient. I reviewed the documentation, medical decision making, and treatment plan as noted by the mid-level provider above. I agree with the findings and plan of care. AMIE ROGER MD, [facility] Aug 02, 2025 23:25
[2025-08-03] VITALS (7 sets, daily range): BP systolic 95–164; BP diastolic 55–76; PULSE 73–94; RESP 16–20; TEMP 98–98.5; O2SAT 96
[2025-08-03 04:45] LABS: NUCLEATED RED BLOOD CELLS 0.0 % (0.0-0.19); PLATELET COUNT (AUTO) 201.0 K/uL (130-400); RED BLOOD CELL COUNT(AUTO) 2.77 MIL/uL (4.00-5.50); RED CELL DISTRIBUTION WIDTH 17.3 % (11.0-15.5); WHITE BLOOD COUNT (AUTO) 6.7 K/uL (4.8-10.8)
[2025-08-03 05:07] LABS: ASPARTATE AMINOTRANSFERASE 16.0 U/L (10-37); CREATININE 0.5 mg/dL (0.5-1.0); GLOMERULAR FILTR. RATE CALC 109.0 mL/min (>90); GLUCOSE,RANDOM 133.0 mg/dL (70-105); SODIUM SERUM 136.0 mmol/L (136-145); TOTAL PROTEIN, SERUM 5.8 g/dL (6.0-8.3); UREA NITROGEN, BLOOD 10.0 mg/dL (7-18)
--- NOTE | 2025-08-03 08:15 | HMCIMG ---
Ultrasound assistance for placement of cholecystotomy tube.. CLINICAL INDICATION: Infected gallbladder for placement of cholecystotomy tube.. FINDINGS: Ultrasound was used to access the gallbladder for placement of cholecystotomy tube.. IMPRESSION: Ultrasound guided to access the gallbladder for placement of a cholecystotomy tube..
--- NOTE | 2025-08-03 12:30 | CONS ---
GASTROENTEROLOGY CONSULTATION REASON FOR CONSULTATION: Persistent abdominal pain, hepatic cirrhosis, and ascites plus anemia. HISTORY OF PRESENT ILLNESS: The patient is a 55-year-old female with a history of diabetes mellitus, hyperlipidemia, diverticulitis, and decompensated hepatic cirrhosis with ascites and esophageal varices, who was admitted with abdominal pain and was found to have colovesicular fistula involving the sigmoid colon region and she has undergone resection of this area of the sigmoid colon and with reanastomosis of her colon, and who was discharged home, but returned to the hospital with septic shock and peritonitis, who is now status post resection of bowel with ileostomy placement and drainage of intra-abdominal collection, but who has been having persistent upper abdominal pain along with generalized abdominal pain, and who is now status post cholecystostomy placement, still complaining of upper abdominal pain, for which GI evaluation and management are sought. The patient also anemic on lab. According to the patient, her abdominal pain in the upper region has persisted. At times it is pressure-type, but also sharp radiating across upper abdomen, constant, worse with p.o. intake, but has no associated fever or chills. The patient denies nausea, vomiting, or gross GI bleed in her ileostomy. She had cholecystostomy tube placed 1 hour ago. The patient has no family history of colon cancer, stomach cancer, or IBD. ALLERGIES: ASPIRIN. PAST MEDICAL AND SURGICAL HISTORY: See above, also history of diabetes mellitus, hyperlipidemia, diverticulitis, hepatic cirrhosis having decompensation with known ascites and esophageal varices. The patient has no history of CAD, DE, CVA, seizure disorder, PUD, or asthma. She has undergone a right knee surgery and also repair of colovesicular fistula with resection of sigmoid colon involved and reanastomosis of the colonic lumen. She has repair of bowel leak and is status post ileostomy placement. MEDICATIONS: Multivitamin, minerals, conjugated estrogen, midazolam, fentanyl citrate, hydrocodone bitartrate/acetaminophen, IV Zosyn, sucralfate, clotrimazole, gabapentin, simethicone, acetaminophen, psyllium, pantoprazole, lactobacillus rhamnosus, furosemide, potassium chloride supplement, thiamine, fluconazole, ondansetron, insulin, magnesium sulfate. SOCIAL HISTORY: No alcohol use, tobacco use, or illicit drug use. FAMILY HISTORY: No colon cancer, stomach cancer, esophageal disorders, liver or gallbladder disease. REVIEW OF SYSTEMS: CONSTITUTIONAL: The patient reports upper abdominal pain superimposed on generalized abdominal pain, but no fever, chills, or gross GI bleed. DERMATOLOGY: Denies any rash, bruise, excessive dry skin. OPHTHALMOLOGY: She has no vision change, eye pain, periorbital swelling, redness, or drainage. RESPIRATORY: No wheezes, rhinorrhea, epistaxis, chest congestion, or cough. CARDIOVASCULAR: No chest pain, palpitations, or leg swelling. GENITOURINARY: No dysuria, hematuria, urgency, or frequency. GASTROINTESTINAL: She has been having upper abdominal pain superimposed on generalized abdominal pain, but no gross GI bleed, nausea, vomiting, or heartburn. MUSCULOSKELETAL: No joint pain, joint swelling, or backache. NEUROLOGY: No tingling, numbness, vision changes, or hearing loss. PSYCHIATRY: No history of depression, anxiety, suicidal plans or ideation. ENDOCRINOLOGY: She has a history of diabetes mellitus and hyperlipidemia, but no documented thyroid disease. PSYCHIATRY: No history of depression, anxiety, suicidal plans, or ideation. PHYSICAL EXAMINATION: GENERAL: The patient is a 55-year-old female who appears stated age, seen resting in bed, in no acute respiratory distress. VITAL SIGNS: Blood pressure 106/60, heart rate 89, respirations 16, temperature 98.2 degrees Fahrenheit. HEENT: The patient's head was normocephalic, atraumatic. Pupils reactive. Sclerae nonicteric. Oral mucosa was moist. No obvious lesion. No blood noted. Nasal mucosa showed no epistaxis, septal deviation, or perforation. NECK: No obvious masses. No jugular venous distention. No lymphadenopathy. No thyromegaly. LUNGS: Clear to auscultation bilaterally. HEART: S1, S2. No obvious murmurs, rubs, or gallops are auscultated. ABDOMEN: Postop CHRIS drain noted in left abdomen, right lower abdomen has ileostomy with liquid brown stool. Bowel sounds were active. Tenderness noted in epigastrium, right upper quadrant, and left upper quadrant. Right lower quadrant tenderness noted also. No rebound or guarding noted in all 4 quadrants. EXTREMITIES: No cyanosis, clubbing, or edema. RECTAL: Deferred. LABORATORY DATA: WBC 7.4 today, hemoglobin 8.6, hematocrit 27.9, MCV of 94.9, platelet count of 246. PT 13.6, INR 1.32, APTT 35.3. Serum chemistries revealed sodium 135, potassium 5.2, chloride of 104, CO2 of 23, BUN of 4, creatinine 0.6, GFR 106, random glucose 244, total calcium of 8.1, phosphorus of 3.7. Total bilirubin of 0.5, AST 20, ALT 9, alkaline phosphatase 67, C-reactive protein 103.9, total protein of 5.6, albumin of 2. DIAGNOSTIC DATA: HIDA scan done on 08/01/2025 showed scintigraphic findings compatible with acute cholecystitis with trace activity throughout the liver with excretion into the bile duct and small bowel without evidence of obstruction and non-visualization of the gallbladder. Ultrasound of the abdomen done on 07/28/2025 had shown cirrhotic-appearing liver, cholelithiasis, and biliary sludge with gallbladder distention, and small-volume ascites. Prior to that, CT scan of the abdomen was done and it showed moderate small bowel enteritis with free air in the upper abdomen suggesting perforated bowel versus post-surgical changes, moderate ascites. IMPRESSION: * Upper abdominal pain, likely from her cholecystitis and symptoms expected to improve with placement of cholecystostomy tube. * Generalized abdominal pain probably from her peritonitis which appeared to be improving. * Decompensated hepatic cirrhosis with ascites and esophageal varices - portal hypertension. * Diabetes mellitus. * Hyperlipidemia. * Ileostomy status. PLAN: * Continue with IV antibiotics. * Give 25 grams of 25% IV albumin q.12 hours for at least 3 days. * Continue with pain medication and antiemetics as needed. * No endoscopic GI intervention needed at this time. * Continue to monitor CBC and transfuse PRBC as needed, keep hemoglobin at least 7. * Monitor and supplement electrolytes, keep potassium at least 4 and magnesium at least 2. * We will continue to follow this patient. The above labs, imaging studies, and physical findings on examination were discussed with the patient and her daughter at bedside. The management plan as above was also discussed with the patient and her daughter at bedside. They verbalized understanding of the management plan as noted above and agree with management plan. All questions were answered. Dr. Conley, thank you for allowing me to participate in the care of this patient. TID: [id number] RECEIPT: [id number] cc: Miguel Conley MD
--- NOTE | 2025-08-03 13:47 | PN ---
NEPHROLOGY PROGRESS NOTE Date/Time Patient Seen: Aug 03, 2025 SUBJECTIVE: This is a 55-year-old female with a past medical history of diabetes mellitus type 2, liver cirrhosis, esophageal varices. He presented to the emergency room with chief complain of abdominal pain. CT of the abdomen showed moderate small bowel enteritis with free air in the upper abdomen, suggesting perforated bowel versus post surgical changes. No obs truction. S/p diagnostic laparoscopy, abdominal washout, drain placement and diverting loop ileostomy creation with CHRIS drain 10 Kinyarwanda on 07/21 S/P fluoroscopy and ultrasound-guided placement of cholecystotomy tube and cholecystogram. She was noted to have elevated BUN/creatinine We are consulted for renal failure Renal function and electrolytes are stable. She was seen in the medial floor, in no acute distress No family at the bedside REVIEW OF SYSTEMS: GENERAL: Positive for abdominal pain and nausea NEUROLOGIC: Negative for any blurry vision, blind spots, double vision, facial asymmetry, dysphagia, dysarthria, hemiparesis, hemisensory deficits, vertigo, ataxia. HEENT: Negative for any head trauma, neck trauma, neck stiffness, photophobia, phonophobia, sinusitis, rhinitis. CARDIAC: Negative for any chest pain, dyspnea on exertion, paroxysmal nocturnal dyspnea, peripheral edema. PULMONARY: Negative for any shortness of breath, wheezing, COPD, or TB exposure. GASTROINTESTINAL: Negative for any abdominal pain, nausea, vomiting, bright red blood per rectum, melena. GENITOURINARY: Negative for any dysuria, hematuria, incontinence. INTEGUMENTARY: Negative for any rashes, cuts, insect bites. RHEUMATOLOGIC: Negative for any joint pains, photosensitive rashes, history of vasculitis or kidney problems. HEMATOLOGIC: Negative for any abnormal bruising, frequent infections or bleeding. Vital Signs (last 8hr) Date Time Temp Pulse Resp B/P (MAP) Pulse Ox O2 Delivery O2 Flow Rate FiO2 08/03/25 11:04 98.1 86 17 110/74 96 Room Air 08/03/25 07:36 98.4 73 18 164/76 97 Room Air 08/03/25 07:34 98.1 84 18 101/64 98 Room Air PHYSICAL EXAM: GENERAL: Alert and oriented x 3. No acute distress. Well-nourished. EYES: EOMI. Anicteric. HENT: Moist mucous membranes. No scleral icterus. No cervical lymphadenopathy. LUNGS: Clear to auscultation bilaterally. No accessory muscle use. CARDIOVASCULAR: Regular rate and rhythm. No murmur. No JVD. ABDOMEN: Soft, non-tender and non-distended. No palpable masses. EXTREMITIES: No edema. Non-tender SKIN: No rashes or lesions. Warm. NEUROLOGIC: No focal neurological deficits. CN II-XII grossly intact, but not individually tested. PSYCHIATRIC: Cooperative. Appropriate mood and affect. Current Medications Medications (Trade) Dose Ordered Sig/Gregory Route Start Time Stop Time Status Last Admin Dose Admin Albumin Human 100 ml @ 0 mls/hr ONCE IV 07/25/25 12:00 07/26/25 11:59 DC 07/25/25 13:43 100 MLS/HR Cyclobenzaprine HCl (Cyclobenzaprine HCl) 5 mg TID PO 07/25/25 14:00 07/26/25 14:00 DC 07/26/25 14:19 5 MG Fluconazole/ Sodium Chloride (DiFLUCan 200 MG/ NS 100 ML) 200 mg Q24H IVPB 07/21/25 21:00 08/20/25 20:59 07/25/25 20:47 200 MG Furosemide (LASix 20MG TAB) 20 mg DAILY PO 07/25/25 11:00 08/24/25 10:59 07/26/25 08:56 20 MG Insulin Human Regular (humuLIN R 100 UNIT/ML 3ML) INSULIN SLIDING SCAL... ACHS SQ 07/21/25 07:30 08/20/25 07:29 07/22/25 20:40 3 UNIT Lactated Ringer's 1,000 ml @ 75 mls/hr [id number] IV 07/21/25 00:00 07/21/25 13:17 DC 07/21/25 02:57 75 MLS/HR Lactated Ringer's 1,000 ml @ 75 mls/hr [id number] IV 07/21/25 13:30 07/24/25 11:09 DC 07/24/25 09:27 75 MLS/HR Lactobacillus Rhamnosus ([facility]) 1 each DAILY20 PO 07/26/25 20:00 08/25/25 19:59 Metronidazole/ Sodium Chloride (flaGYL) 500 mg Q8H IV 07/21/25 14:00 07/21/25 13:40 DC Norepinephrine 250 ml @ 0 mls/hr PROTOCOL IV 07/20/25 23:30 08/19/25 23:29 07/21/25 10:56 18.45 MLS/HR Pantoprazole Sodium (PROTonix 40MG INJ) 40 mg BID IV 07/26/25 21:00 08/20/25 08:59 Pantoprazole Sodium (PROTonix 40MG INJ) 40 mg DAILY IV 07/21/25 09:00 07/26/25 09:31 DC 07/26/25 08:55 40 MG Pharmacy Profile Note (Pharmacy Communication) 1 each ONCE MISC 07/21/25 15:30 07/21/25 15:16 DC Piperacillin Sod/ Tazobactam Sod 50 ml @ 200 mls/hr ONCE STAT IVPB 07/20/25 19:15 07/20/25 19:29 DC 07/20/25 20:32 200 MLS/HR Piperacillin Sod/ Tazobactam Sod (Zosyn 3.375gm+NS 50ml) 3.375 gm Q12H IV 07/21/25 00:00 07/31/25 00:00 07/26/25 12:10 3.375 GM Psyllium Hydrophilic Mucilloid (Metamucil) 1 tbs BID PO 07/26/25 21:00 08/25/25 20:59 Sodium Bicarbonate 150 meq/Sodium Chloride 1,150 ml @ 0 mls/hr Q0M IVP 07/21/25 14:00 07/26/25 09:31 DC Spironolactone (Aldactone 25mg) 25 mg BID PO 07/25/25 21:00 07/26/25 09:01 DC 07/26/25 08:56 25 MG Thiamine HCl (Vitamin B-1) 100 mg DAILY IVP 07/22/25 21:00 08/21/25 20:59 07/26/25 08:55 100 MG Thiamine HCl 100 mg/Sodium Chloride 50 ml @ 100 mls/hr Q24H IM 07/21/25 15:30 07/21/25 16:25 DC Vancomycin HCl (Vancomycin 1g/ 250ml Kit) 1 gm ONCE STAT IV 07/20/25 21:23 07/20/25 21:26 DC 07/20/25 22:06 1 GM Vasopressin 20 units/Sodium Chloride 100 ml @ 0 mls/hr PROTOCOL IV 07/21/25 00:30 08/20/25 00:29 07/21/25 00:10 9 MLS/HR LABORATORY: [ ] Hematology Labs: Test 08/03/25 04:30 08/02/25 04:30 Range/Units White Blood Count 6.7 4.8-10.8 K/uL Red Blood Count 2.77 L 4.00-5.50 MIL/uL Hemoglobin 8.2 L 12.0-16.0 g/dL Hematocrit 25.7 L 36-48 % Mean Corpuscular Volume 92.8 79-99 fL Mean Corpuscular Hemoglobin 29.6 27.0-33.0 pg Mean Corpuscular Hemoglobin Concent 31.9 L 32.0-36.0 g/dL Red Cell Distribution Width 17.3 H 11.0-15.5 % Platelet Count 201 130-400 K/uL Mean Platelet Volume 9.9 7.5-10.5 fL Nucleated Red Blood Cells 0.0 0.0-0.19 % Immature Granulocyte % (Auto) 0.7 0-1 % Neutrophils (%) (Auto) 74.7 40.0-77.0 % Lymphocytes (%) (Auto) 11.7 L 21.0-51.0 % Monocytes (%) (Auto) 11.3 3.0-13.0 % Eosinophils (%) (Auto) 1.2 0.0-8.0 % Basophils (%) (Auto) 0.4 0.0-5.0 % Neutrophils # (Auto) 5.5 1.8-7.7 K/uL Lymphocytes # (Auto) 0.9 L 1.0-4.8 K/uL Monocytes # (Auto) 0.8 0.1-1.0 K/uL Eosinophils # (Auto) 0.09 0.00-0.70 K/uL Basophils # (Auto) 0.03 0.00-0.20 K/uL Absolute Immature Granulocyte (auto 0.05 0-1 K/uL Red Blood Cell Morphology See comments Chemistry Labs: Test 08/03/25 10:38 08/03/25 04:30 08/02/25 04:30 Range/Units Whole Blood Glucose 126 H 70-110 MG/DL Sodium Level 136 136-145 mmol/L Potassium Level 4.1 3.5-5.1 mmol/L Chloride Level 105 101-111 mmol/L Carbon Dioxide Level 27 21-32 mmol/L Blood Urea Nitrogen 10 7-18 mg/dL Creatinine 0.5 0.5-1.0 mg/dL Glomerular Filtration Rate Calc 109 >90 mL/min Random Glucose 133 H 70-105 mg/dL Total Calcium 8.1 L 8.5-10.1 mg/dL Magnesium Level 1.80 1.80-2.40 mg/dL Total Bilirubin 0.6 0.2-1.0 mg/dL Aspartate Amino Transf (AST/SGOT) 16 10-37 U/L Alanine Aminotransferase (ALT/SGPT) 9 L 12-78 U/L Alkaline Phosphatase 67 50-136 U/L C-Reactive Protein, Quantitative 89.80 H 0.5-3.0 mg/L Total Protein 5.8 L 6.0-8.3 g/dL Albumin 2.4 L 3.5-5.0 g/dL Phosphorus Level 3.7 2.5-4.9 mg/dL Procalcitonin 0.11 0.05-0.5 ng/mL Coagulation Labs: Test 08/02/25 04:30 Range/Units Prothrombin Time 13.6 H 9.6-11.6 SEC Prothromb Time International Ratio 1.32 H 0.85-1.15 Activated Partial Thromboplast Time 35.3 26.3-35.5 [facility] / RADIOLOGY: [place] [address] IMAGING REPORT Signed PATIENT: DALLAS BUCHANAN MR#: [id number] : 1970 SEX: F AGE: 55 LOCATION: [facility] ORDER 1524 STATUS: ADM IN REPORT#: [id number] SERVICE 1523 REASON: cholecystitis ORDERING PHYSICIAN: BENEDICTO OBRIEN Jr. PROCEDURE: HIDA PHARM - NM HIDA/HEPATOBILI W/ PHARMACO EXAM: HIDA scan. INDICATION: Severe RUQ Pain to rule out cholecystitis. REFERENCE EXAMINATION: [facility] July 29, 2025. TECHNIQUE: Sequential images of the abdomen were obtained in the anterior projection after IV administration of 6.0 mCi of Tc99m Mebrofenin. FINDINGS: Tracer activity throughout the liver is homogeneous without focal defects. There is prompt excretion of the pharmaceutical into the bile ducts and into the small bowel, without evidence of obstruction. There is no visualization of the gallbladder at the conclusion of the examination. IMPRESSION: Scintigraphic findings are compatible with acute cholecystitis. /[place] DICTATED BY: ELDON MILLER Jr., MD DATE: 08/01/25 101 ELECTRONICALLY SIGNED BY: ELDON MILLER Jr., MD DATE: 08/01/25 1011 PATIENT: DALLAS BUCHANAN MR#: [id number] : 1970 SEX: F AGE: 55 LOCATION: [facility] ORDER 10 STATUS: ADM IN REPORT#: [id number] SERVICE 09 REASON: ABD PAIN ORDERING PHYSICIAN: NIKKI MUNOZ NP PROCEDURE: ABD 1VW - ABD 1VW EXAM: CR Abdomen, 1 view. CLINICAL HISTORY: Pain. COMPARISON: None provided. FINDINGS: Dilated small bowel loops are seen in mid abdomen. There is a density in the pelvis which may represent a send drainage catheter. No free air is evident. No abnormal calcification. No aggressive appearing osseous lesion. IMPRESSION: Dilated small bowel loops are seen in mid abdomen. Density in the pelvis which may represent a send drainage catheter. /[place] DICTATED BY: TOBI LEAHY MD DATE: 07/29/25 1033 ELECTRONICALLY SIGNED BY: TOBI LEAHY MD DATE: 07/29/25 103 PATIENT: DALLAS BUCHANAN MR#: [id number] : 1970 SEX: F AGE: 55 LOCATION: [facility] ORDER 1519 STATUS: ADM IN REPORT#: [id number] SERVICE 1516 REASON: Liver cirrhosis ORDERING PHYSICIAN: LISET DOUGLAS MD PROCEDURE: ABDOMEN - US ABDOMINAL COMPLETE EXAM: US Abdomen complete CLINICAL HISTORY: Liver cirrhosis TECHNIQUE: Real-time ultrasound of the abdomen (complete) with image documentation. COMPARISON: None provided. FINDINGS: LIVER: Liver measures 12.3 cm with a heterogeneous coarse echotexture. GALLBLADDER: Gallbladder contains stones and sludge. Gallbladder is distended. COMMON BILE DUCT: No dilation. PANCREAS: Pancreas not well-visualized due to overlying bowel gas KIDNEYS: Normal renal contours. No renal mass or calculus. No hydronephrosis. SPLEEN: Normal in size and echogenicity. No mass identified. AORTA: No aneurysm. IVC: Unremarkable as visualized. MISCELLANEOUS: Small amount of abdominal ascites. IMPRESSION: 1. Cirrhotic-appearing liver. 2. Cholelithiasis and biliary sludge with gallbladder distension. 3. Small volume ascites. /[place] DICTATED BY: CYNTHIA JULIAN MD DATE: 07/29/25 105 ELECTRONICALLY SIGNED BY: CYNTHIA JULIAN MD DATE: 07/29/25 105 PATIENT: DALLAS BUCHANAN MR#: [id number] : 1970 SEX: F AGE: 55 LOCATION: [facility] ORDER 1108 STATUS: ADM IN REPORT#: [id number] SERVICE 1106 REASON: sob ORDERING PHYSICIAN: PREET BOSTON MD PROCEDURE: CXR1VW - CHEST 1VW CHEST 1VW REASON: sob COMPARISON: Study from 07/21/2025 is available. FINDINGS: Single view of the chest was obtained. Lungs are clear. Heart size is normal. There is no pulmonary vascular congestion. There is a right-sided PIC catheter with tip in superior vena cava. There is a nasogastric tube with the tip in the fundus of the stomach. Mediastinum and bony thorax appear unremarkable. IMPRESSION: 1. No acute cardiopulmonary process 2. The support lines are in satisfactory position.. DICTATED BY: GREER FIORE MD DATE: 07/22/25 1350 ELECTRONICALLY SIGNED BY: GREER FIORE MD DATE: 07/22/25 1354 PATIENT: DALLAS BUCHANAN MR#: [id number] : 1970 SEX: F AGE: 55 LOCATION: [facility] ORDER STATUS: ADM IN REPORT#: [id number] SERVICE REASON: PICC LINE ORDERING PHYSICIAN: HEATHER LEACH APRN PROCEDURE: CXR1VW - CHEST 1VW EXAM: CR Chest, single view. CLINICAL HISTORY: PICC line COMPARISON: Prior same day chest radiograph. FINDINGS: Right-sided PICC catheter with tip in the cavoatrial junction. Subsegmental atelectasis in the right lower lobe. No evidence of pleural effusion or pneumothorax. The cardiomediastinal silhouette is within normal limits. No acute osseous abnormality. IMPRESSION: Right-sided PICC catheter with tip in the cavoatrial junction. Subsegmental atelectasis in the right lower lobe. No evidence of pleural effusion or pneumothorax. Compared to the prior study, there is interval placement of the right-sided PICC line and interval resolution of the subsegmental atelectasis in the left lower lobe. /[place] DICTATED BY: ELDON MILLER Jr., MD DATE: 07/21/25816 ELECTRONICALLY SIGNED BY: ELDON MILLER Jr., MD DATE: 07/21/25816 PATIENT: DALLAS BUCHANAN MR#: [id number] : 1970 SEX: F AGE: 55 LOCATION: [facility] ORDER 14 STATUS: [facility] REPORT#: [id number] SERVICE 12 REASON: CHEST PAIN/COUGH ORDERING PHYSICIAN: ALHAJI SHINE NP PROCEDURE: CXR1VW - CHEST 1VW EXAM: XR Chest, 1 View. CLINICAL HISTORY: 55 year old female with chest pain and cough. COMPARISON: None provided. FINDINGS: LUNGS: The lungs demonstrate evidence of atelectasis. PLEURAL SPACES: A small right pleural effusion is present. HEART: The heart size is normal. BONES: No acute osseous abnormality. IMPRESSION: 1. Small right pleural effusion and right lung base atelectasis. /[place] DICTATED BY: EDWIGE LEDESMA MD DATE: 07/20/252046 ELECTRONICALLY SIGNED BY: EDWIGE LEDESMA MD DATE: 07/20/252046 PATIENT: DALLAS BUCHANAN MR#: [id number] : 1970 SEX: F AGE: 55 LOCATION: [facility] ORDER 14 STATUS: [facility] REPORT#: [id number] SERVICE 12 REASON: Abdominal Pain ORDERING PHYSICIAN: ALHAJI SHINE NP PROCEDURE: ABD PEL W - CT ABDOMEN/PELVIS W/CONTRAST ADDENDUM REPORT ADDENDUM: Results were shared by telephone at 23:23 pm on 07-20-2025 and acknowledged by Pt nurse Ms. SHIN BOYKIN. /[place] EXAM: CT Abdomen and Pelvis with Intravenous Contrast CLINICAL HISTORY: 55-year-old female with abdominal pain. TECHNIQUE: Axial computed tomography images of the abdomen and pelvis with intravenous contrast. Dose reduction technique was used including one or more of the following: automated exposure control, adjustment of mA and kV according to patient size, and/or iterative reconstruction. CONTRAST: Omnipaque 350, 75 mL COMPARISON: None provided. FINDINGS: LUNG BASES: Atelectasis and scarring at the lung bases. LIVER: Unremarkable. GALLBLADDER AND BILE DUCTS: Tiny gallstone seen. PANCREAS: Unremarkable. SPLEEN: Unremarkable. ADRENAL GLANDS: Unremarkable. KIDNEYS, URETERS, AND BLADDER: Dueñas catheter seen in the bladder lumen. No hydronephrosis or nephrolithiasis. No ureteral calculi. STOMACH AND BOWEL: Edema or loops of small bowel suggesting moderate small bowel enteritis. Free air in the upper abdomen is seen, suggesting perforated bowel. No obstruction. APPENDIX: No CT evidence for appendicitis. PERITONEUM: Moderate ascites in the abdomen and pelvis. No free air under the diaphragm. LYMPH NODES: No lymphadenopathy. REPRODUCTIVE: Unremarkable as visualized. VASCULATURE: No aortic aneurysm. ABDOMINAL WALL AND SOFT TISSUES: There is air in the subcutaneous soft tissue seen anteriorly, suggesting recent postsurgical changes; please correlate with surgical history. BONES: No fracture or suspicious osseous abnormality. IMPRESSION: 1. Moderate small bowel enteritis with free air in the upper abdomen, suggesting perforated bowel versus post surgical changes. No obstruction. 2. Moderate ascites in the abdomen and pelvis. 3. Air in the subcutaneous soft tissue anteriorly, suggesting recent postsurgical changes; please correlate with surgical history. /[place] DICTATED BY: EDWIGE LEDESMA MD DATE: 07/20/25 0517 ELECTRONICALLY SIGNED BY: DATE: EXAM: CT Abdomen and Pelvis with Intravenous Contrast CLINICAL HISTORY: 55-year-old female with abdominal pain. TECHNIQUE: Axial computed tomography images of the abdomen and pelvis with intravenous contrast. Dose reduction technique was used including one or more of the following: automated exposure control, adjustment of mA and kV according to patient size, and/or iterative reconstruction. CONTRAST: Omnipaque 350, 75 mL COMPARISON: None provided. FINDINGS: LUNG BASES: Atelectasis and scarring at the lung bases. LIVER: Unremarkable. GALLBLADDER AND BILE DUCTS: Tiny gallstone seen. PANCREAS: Unremarkable. SPLEEN: Unremarkable. ADRENAL GLANDS: Unremarkable. KIDNEYS, URETERS, AND BLADDER: Dueñas catheter seen in the bladder lumen. No hydronephrosis or nephrolithiasis. No ureteral calculi. STOMACH AND BOWEL: Edema or loops of small bowel suggesting moderate small bowel enteritis. Free air in the upper abdomen is seen, suggesting perforated bowel. No obstruction. APPENDIX: No CT evidence for appendicitis. PERITONEUM: Moderate ascites in the abdomen and pelvis. No free air under the diaphragm. LYMPH NODES: No lymphadenopathy. REPRODUCTIVE: Unremarkable as visualized. VASCULATURE: No aortic aneurysm. ABDOMINAL WALL AND SOFT TISSUES: There is air in the subcutaneous soft tissue seen anteriorly, suggesting recent postsurgical changes; please correlate with surgical history. BONES: No fracture or suspicious osseous abnormality. IMPRESSION: 1. Moderate small bowel enteritis with free air in the upper abdomen, suggesting perforated bowel versus post surgical changes. No obstruction. 2. Moderate ascites in the abdomen and pelvis. 3. Air in the subcutaneous soft tissue anteriorly, suggesting recent postsurgical changes; please correlate with surgical history. /[place] DICTATED BY: EDWIGE LEDESMA MD DATE: 07/20/252317 ELECTRONICALLY SIGNED BY: EDWIGE LEDESMA MD DATE: 07/20/252317 ASSESSMENT: Acute kidney injury Bacterial peritonitis Cholelithiasis 2 mm perforation of the colonic anastomosis Anastomosis leak Bilious peritonitis S/p Diagnostic laparoscopy, abdominal washout, drain placement and diverting loop ileostomy creation Atrophic vaginitis Anemia Diabetes Mellitus Type 2 Septic Shock Cirrhosis of liver Oesophageal Varices PLAN: Labs, diagnostic, radiologic exams reviewed and interpreted by myself and supervising physician. We have reviewed external records in detail Require close monitoring of renal function and electrolytes Order CBC, CMP, and electrolytes in am Continue with antibiotics BiPAP as necessary, for respiratory distress Monitor blood pressure adjust medication doses as needed Avoid hypotensive episodes May use Dilaudid 0.5 mg IV every 6 hours as needed for severe pain Monitor blood sugars Strict intake, output, and daily weight should be monitored Please renally adjust medications Avoid nephrotoxic and nonsteroidal drugs Avoid contrast if possible Will continue to monitor renal function, anemia, electrolytes Treatment plan discussed with patient Questions were answered We have discussed with the other team physicians in detail about the care plan We will continue to monitor the patient closely ATTESTATION BY PHYSICIAN I have seen and examined the patient. I reviewed the documentation, medical decision making, and treatment plan as noted by the mid-level provider above. I agree with the findings and plan of care. CIELO PORTILLO MD, [facility] Aug 03, 2025 13:47
--- NOTE | 2025-08-03 16:46 | PN ---
This is a 55-year-old female status post diagnostic laparoscopy with the abdominal washout and drain placement with diverting loop ileostomy creation by Dr. Gann Interval history: This 55-year-old female seen in her room resting IR drain placed yesterday CHRIS drain with lessening output Patient is able to ambulate significantly today Patient with little appetite with clear liquids requesting solid diet Patient's pain better today Ostomy productive Patient continues with TPN Labs and vitals stable Physical exam General: Awake alert and oriented Heart: Regular rate and rhythm} Lungs: Clear to auscultation no distress Abdomen: [Soft, nontender, nondistended ostomy with good color to stoma CHRIS in place Cholecystostomy tube in place Assessment : This is a 55-year-old female status post diagnostic laparoscopy with the abdominal washout and drain placement with diverting loop ileostomy creation by Dr. Gann Plan: At this point in time we will attempt soft diet with the patient Patient to continue ambulating Continue with current pain management but we will talk about possible adjustments in the next few days if patient is able to tolerate diet Continue with TPN for now Dr. Gann to be updated on patient's status Surgical case has been discussed with my supervising physician in the above plan was formulated and agreed upon We appreciate the hospitalist team for us to participate in patient's care. Greater than 45 minutes of time spent patient, reviewing chart, working on documentation Vitals/Labs Vital Signs Date Time Temp Pulse Resp B/P (MAP) Pulse Ox O2 Delivery O2 Flow Rate FiO2 08/03/25 15:35 98.4 94 16 114/67 95 Room Air 08/02/25 20:59 0 21 Laboratory Tests 08/03/25 04:30 Medications Current Medications Sodium Chloride 1,000 ml @ 0 mls/hr ONCE ONCE IV; Start 07/20/25 at 18:30; Stop 07/20/25 at 18:31; Status DC Piperacillin Sod/ Tazobactam Sod 50 ml @ 200 mls/hr ONCE STAT IVPB Last administered on 07/20/25at 20:32; Start 07/20/25 at 19:15; Stop 07/20/25 at 19:29; Status DC Sodium Chloride 2,109 ml @ 703 mls/hr ONCE ONCE IV Last administered on 07/20/25at 20:28; Start 07/20/25 at 19:30; Stop 07/20/25 at 22:29; Status DC Iohexol 75 ml STK-MED ONCE IV; Start 07/20/25 at 20:31; Stop 07/20/25 at 20:31; Status DC Vancomycin HCl 1 gm ONCE STAT IV Last administered on 07/20/25at 22:06; Start 07/20/25 at 21:23; Stop 07/20/25 at 21:26; Status DC Morphine Sulfate 4 mg ONCE ONCE IVP Last administered on 07/20/25at 23:15; Start 07/20/25 at 23:30; Stop 07/20/25 at 23:31; Status DC Ondansetron HCl 4 mg ONCE ONCE IVP Last administered on 07/20/25at 23:14; Start 07/20/25 at 23:30; Stop 07/20/25 at 23:31; Status DC Norepinephrine 250 ml @ 0 mls/hr PROTOCOL IV Last administered on 07/21/25at 10:56; Start 07/20/25 at 23:30; Stop 08/03/25 at 08:27; Status DC Piperacillin Sod/ Tazobactam Sod 3.375 gm Q12H IV Last administered on 07/30/25at 23:55; Start 07/21/25 at 00:00; Stop 07/31/25 at 00:00; Status DC Acetaminophen 650 mg Q6H PRN RC; Start 07/21/25 at 00:00; Stop 07/27/25 at 16:22; Status DC Pantoprazole Sodium 40 mg DAILY IV Last administered on 07/26/25at 08:55; Start 07/21/25 at 09:00; Stop 07/26/25 at 09:31; Status DC Ondansetron HCl 4 mg Q6H PRN IV; Start 07/21/25 at 00:00; Stop 07/21/25 at 13:18; Status DC Morphine Sulfate 2 mg Q4H PRN IVP Last administered on 07/21/25at 04:46; Start 07/21/25 at 00:30; Stop 07/21/25 at 13:18; Status DC Lactated Ringer's 1,000 ml @ 75 mls/hr [id number] IV Last administered on 07/21/25at 02:57; Start 07/21/25 at 00:00; Stop 07/21/25 at 13:17; Status DC Insulin Human Regular INSULIN SLIDING SCAL... ACHS SQ Last administered on 07/22/25at 20:40; Start 07/21/25 at 07:30; Stop 08/20/25 at 07:29 Vasopressin 20 units/Sodium Chloride 100 ml @ 0 mls/hr PROTOCOL IV Last administered on 07/21/25at 00:10; Start 07/21/25 at 00:30; Stop 08/03/25 at 08:27; Status DC Vasopressin 20 units STK-MED ONCE .ROUTE; Start 07/21/25 at 00:10; Stop 07/21/25 at 00:11; Status DC Magnesium Sulfate 50 ml @ 0 mls/hr PROTOCOL PRN IV Last administered on 08/01/25at 06:05; Start 07/21/25 at 07:00; Stop 08/20/25 at 06:59 Acetaminophen 100 ml @ As Directed STK-MED ONCE .ROUTE; Start 07/21/25 at 09:42; Stop 07/21/25 at 09:42; Status DC Famotidine 20 mg STK-MED ONCE IV; Start 07/21/25 at 09:42; Stop 07/21/25 at 09:42; Status DC Albumin Human 500 ml @ As Directed STK-MED ONCE IV; Start 07/21/25 at 09:45; Stop 07/21/25 at 09:45; Status DC Phenylephrine HCl 10 mg STK-MED ONCE IV; Start 07/21/25 at 09:48; Stop 07/21/25 at 09:48; Status DC Dexamethasone Sodium Phosphate 10 mg STK-MED ONCE .ROUTE; Start 07/21/25 at 09:52; Stop 07/21/25 at 09:52; Status DC Ondansetron HCl 4 mg STK-MED ONCE .ROUTE; Start 07/21/25 at 09:52; Stop 07/21/25 at 09:52; Status DC Lidocaine HCl 100 mg STK-MED ONCE .ROUTE; Start 07/21/25 at 09:52; Stop 07/21/25 at 09:52; Status DC Succinylcholine Chloride 200 mg STK-MED ONCE .ROUTE; Start 07/21/25 at 09:53; Stop 07/21/25 at 09:53; Status DC Glycopyrrolate 1 mg STK-MED ONCE .ROUTE; Start 07/21/25 at 09:53; Stop 07/21/25 at 09:53; Status DC Fentanyl Citrate 100 mcg STK-MED ONCE .ROUTE; Start 07/21/25 at 09:54; Stop 07/21/25 at 09:54; Status DC Propofol 200 mg STK-MED ONCE IV; Start 07/21/25 at 09:54; Stop 07/21/25 at 09:54; Status DC Neostigmine Methylsulfate 10 mg STK-MED ONCE IV; Start 07/21/25 at 09:54; Stop 07/21/25 at 09:54; Status DC Rocuronium [place] 50 mg STK-MED ONCE .ROUTE; Start 07/21/25 at 09:54; Stop 07/21/25 at 09:54; Status DC Ketamine HCl 50 mg STK-MED ONCE .ROUTE; Start 07/21/25 at 09:55; Stop 07/21/25 at 09:56; Status DC Epinephrine HCl 1 mg STK-MED ONCE .ROUTE; Start 07/21/25 at 10:03; Stop 07/21/25 at 10:03; Status DC Midazolam HCl 2 mg STK-MED ONCE .ROUTE; Start 07/21/25 at 10:05; Stop 07/21/25 at 10:05; Status DC Indocyanine Green 25 mg STK-MED ONCE IJ; Start 07/21/25 at 10:49; Stop 07/21/25 at 10:49; Status DC Ephedrine Sulfate 50 mg STK-MED ONCE .ROUTE; Start 07/21/25 at 11:17; Stop 07/21/25 at 11:17; Status DC Bupivacaine HCl 5 mg STK-MED ONCE .ROUTE Last administered on 07/21/25at 12:14; Start 07/21/25 at 11:49; Stop 07/21/25 at 11:49; Status DC Sodium Bicarbonate 200 ml @ As Directed STK-MED ONCE .ROUTE; Start 07/21/25 at 12:19; Stop 07/21/25 at 12:19; Status DC Fentanyl Citrate 100 mcg STK-MED ONCE .ROUTE; Start 07/21/25 at 12:23; Stop 07/21/25 at 12:23; Status DC Phytonadione 10 mg STK-MED ONCE .ROUTE; Start 07/21/25 at 13:05; Stop 07/21/25 at 13:05; Status DC Lactated Ringer's 1,000 ml @ 75 mls/hr [id number] IV Last administered on 07/24/25at 09:27; Start 07/21/25 at 13:30; Stop 07/24/25 at 11:09; Status DC Morphine Sulfate 4 mg Q3H PRN IV Last administered on 07/26/25at 10:51; Start 07/21/25 at 13:30; Stop 07/26/25 at 16:29; Status DC Ondansetron HCl 4 mg Q4H PRN IVP; Start 07/21/25 at 13:30; Stop 08/20/25 at 13:29 Fentanyl Citrate 100 mcg STK-MED ONCE .ROUTE; Start 07/21/25 at 13:26; Stop 07/21/25 at 13:26; Status DC Sodium Bicarbonate 150 meq/Sodium Chloride 1,150 ml @ 0 mls/hr Q0M IVP; Start 07/21/25 at 14:00; Stop 07/26/25 at 09:31; Status DC Sodium Bicarbonate 100 meq ONCE ONCE IV; Start 07/21/25 at 14:00; Stop 07/21/25 at 14:23; Status DC Metronidazole/ Sodium Chloride 500 mg Q8H IV; Start 07/21/25 at 14:00; Stop 07/21/25 at 13:40; Status DC Fluconazole/ Sodium Chloride 200 mg Q24H IVPB Last administered on 08/02/25at 21:04; Start 07/21/25 at 21:00; Stop 08/20/25 at 20:59 Pharmacy Profile Note 1 each ONCE MISC; Start 07/21/25 at 15:30; Stop 07/21/25 at 15:16; Status DC Thiamine HCl 100 mg/Sodium Chloride 50 ml @ 100 mls/hr Q24H IM; Start 07/21/25 at 15:30; Stop 07/21/25 at 16:25; Status DC Sodium Bicarbonate 100 meq ONCE ONCE IV Last administered on 07/21/25at 16:42; Start 07/21/25 at 16:30; Stop 07/21/25 at 16:31; Status DC Thiamine HCl 100 mg DAILY IVP Last administered on 08/03/25at 08:56; Start 07/22/25 at 21:00; Stop 08/21/25 at 20:59 Diatrizoate Meglum/ Diatrizoate Sod 30 ml STK-MED ONCE .ROUTE; Start 07/23/25 at 15:13; Stop 07/23/25 at 15:13; Status DC Potassium Chloride 100 ml @ 100 mls/hr AD PRN IV Last administered on 07/30/25at 06:23; Start 07/24/25 at 08:30; Stop 08/23/25 at 08:29 Potassium Chloride 20 meq AD PRN PO Last administered on 07/31/25at 08:15; Start 07/24/25 at 08:30; Stop 08/23/25 at 08:29 Potassium Chloride 20 meq AD PRN PO Last administered on 07/27/25at 20:33; Start 07/24/25 at 08:30; Stop 08/23/25 at 08:29 Hydromorphone HCl 0.5 mg Q4H PRN IVP Last administered on 07/29/25at 08:22; Start 07/24/25 at 10:00; Stop 07/29/25 at 09:59; Status DC Spironolactone 25 mg BID PO Last administered on 07/26/25at 08:56; Start 07/25/25 at 21:00; Stop 07/26/25 at 09:01; Status DC Albumin Human 100 ml @ 0 mls/hr ONCE ONCE IV Last administered on 07/25/25at 17:05; Start 07/25/25 at 10:30; Stop 07/25/25 at 10:31; Status DC Albumin Human 100 ml @ 0 mls/hr ONCE IV Last administered on 07/25/25at 13:43; Start 07/25/25 at 12:00; Stop 07/26/25 at 11:59; Status DC Cyclobenzaprine HCl 5 mg TID PO Last administered on 07/26/25at 14:19; Start 07/25/25 at 14:00; Stop 07/26/25 at 14:00; Status DC Furosemide 20 mg DAILY PO Last administered on 08/02/25at 09:42; Start 07/25/25 at 11:00; Stop 08/02/25 at 11:53; Status DC Pantoprazole Sodium 40 mg BID IV Last administered on 08/03/25at 08:55; Start 07/26/25 at 21:00; Stop 08/20/25 at 08:59 Psyllium Hydrophilic Mucilloid 1 tbs BID PO Last administered on 08/03/25at 08:56; Start 07/26/25 at 21:00; Stop 08/25/25 at 20:59 Lactobacillus Rhamnosus 1 each DAILY20 PO Last administered on 08/02/25at 21:04; Start 07/26/25 at 20:00; Stop 08/25/25 at 19:59 Iron Sucrose 200 mg ONCE ONCE IV Last administered on 07/26/25at 14:19; Start 07/26/25 at 14:00; Stop 07/26/25 at 14:01; Status DC Lidocaine 1 patch DAILY TP Last administered on 08/03/25at 08:56; Start 07/28/25 at 09:00; Stop 08/27/25 at 08:59 Simethicone 80 mg Q6H6 PO Last administered on 08/03/25at 12:50; Start 07/27/25 at 12:00; Stop 08/26/25 at 11:59 Acetaminophen 500 mg Q6H6 PRN PO; Start 07/27/25 at 16:30; Stop 08/26/25 at 16:29 Lidocaine 1 patch ONCE ONCE TP Last administered on 07/27/25at 19:25; Start 07/27/25 at 19:30; Stop 07/27/25 at 19:31; Status DC Albumin Human 50 ml @ 0 mls/hr AD ONCE IV Last administered on 07/28/25at 17:44; Start 07/28/25 at 15:30; Stop 07/28/25 at 15:31; Status DC Albumin Human 100 ml @ 0 mls/hr AD ONCE IV Last administered on 07/29/25at 14:26; Start 07/29/25 at 12:30; Stop 07/29/25 at 12:31; Status DC Hydromorphone HCl 0.5 mg Q4H PRN IVP Last administered on 08/03/25at 13:09; Start 07/29/25 at 13:30; Stop 08/03/25 at 13:29; Status DC Gabapentin 100 mg TID PO Last administered on 08/01/25at 20:14; Start 07/29/25 at 14:00; Stop 08/02/25 at 09:21; Status DC Clotrimazole 1 GM BID TP Last administered on 08/03/25at 08:58; Start 07/29/25 at 21:00; Stop 08/28/25 at 20:59 Sucralfate 1 gm ACHS PO Last administered on 08/03/25at 08:55; Start 07/29/25 at 21:00; Stop 08/28/25 at 20:59 Piperacillin Sod/ Tazobactam Sod 3.375 gm Q8H IVPB Last administered on 08/03/25at 12:45; Start 07/31/25 at 11:30; Stop 08/10/25 at 11:29 Sodium Chloride 50 ml AD IV; Start 07/31/25 at 11:30; Stop 07/31/25 at 11:12; Status DC Iron Sucrose 300 mg/Sodium Chloride 250 ml @ 83 mls/hr ONCE ONCE IV Last administered on 07/31/25at 13:36; Start 07/31/25 at 12:00; Stop 07/31/25 at 15:00; Status DC Fentanyl 25 mcg Q72H TD; Start 07/31/25 at 14:30; Stop 07/31/25 at 14:44; Status DC Acetaminophen/ Hydrocodone Bitart 1 tab Q4H PRN PO Last administered on 08/03/25at 03:25; Start 07/31/25 at 16:30; Stop 08/05/25 at 16:29 Chromium/Copper/ Manganese/Zinc 3 ml/Multivitamins/ Minerals 10 ml/ Amino Acids/ Electrolytes/ Dextrose 2,000 ml @ 80 mls/hr ONCE ONCE IV Last administered on 08/01/25at 20:25; Start 08/01/25 at 20:00; Stop 08/02/25 at 20:59; Status DC Albumin Human 100 ml @ 0 mls/hr AD ONCE IV Last administered on 08/02/25at 09:41; Start 08/02/25 at 09:30; Stop 08/02/25 at 09:33; Status DC Lidocaine HCl 20 ml STK-MED ONCE .ROUTE; Start 08/02/25 at 11:24; Stop 08/02/25 at 11:24; Status DC Iohexol 50 ml STK-MED ONCE IV; Start 08/02/25 at 11:24; Stop 08/02/25 at 11:25; Status DC Estrogens Conjugated 1 appl ONCE ONCE VG; Start 08/02/25 at 12:00; Stop 08/02/25 at 12:01; Status DC Fentanyl Citrate 100 mcg STK-MED ONCE .ROUTE; Start 08/02/25 at 11:53; Stop 08/02/25 at 11:53; Status DC Midazolam HCl 2 mg STK-MED ONCE .ROUTE; Start 08/02/25 at 11:54; Stop 08/02/25 at 11:54; Status DC Midazolam HCl 2 mg STK-MED ONCE .ROUTE; Start 08/02/25 at 12:15; Stop 08/02/25 at 12:16; Status DC Multivitamins/ Minerals 10 ml/ Chromium/Copper/ Manganese/Zinc 3 ml/Amino Acids/ Electrolytes/ Dextrose 2,000 ml @ 80 mls/hr ONCE ONCE IV Last administered on 08/02/25at 21:08; Start 08/02/25 at 20:00; Stop 08/03/25 at 20:59 Estrogens Conjugated 1 appl ONCE ONCE VG Last administered on 08/02/25at 18:47; Start 08/02/25 at 18:30; Stop 08/02/25 at 18:31; Status DC Albumin Human 50 ml @ 0 mls/hr Q12H IV; Start 08/02/25 at 18:30; Stop 08/02/25 at 20:04; Status DC Albumin Human 50 ml @ 100 mls/hr Q12H IV Last administered on 08/03/25at 08:55; Start 08/02/25 at 21:30; Stop 08/05/25 at 09:59 BENEDICTO OBRIEN Jr. Aug 03, 2025 16:45
--- NOTE | 2025-08-03 17:25 | PN ---
[facility] PROGRESS NOTE Date of Service: Aug 03, 2025 Time of Service: 17:02 SUBJECTIVE: Ms. Gray is a 55-year-old female that was seen and examined today on 07/20/2025. Patient reports that she came to the emergency department with a chief complaint of abdominal pain. Onset was 07/09/2025. Location is all four quadrants. Duration is constant. Character is described as pressure and " like I have a lot of gas trapped. " there was no alleviating factors. There was no aggravating factors. Patient reports associated abdominal swelling. 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 After the discharge she was taking pain medications and her condition started worsening after few days. She is in constant follow up with Dr Gann. Today in the emergency department WBCs 21.2, left shift neutrophils 85.5%, BUN 26, creatinine 3.1, GFR 17, lactic acid 8.0, no urinalysis has been collected or sent to lab, CT of abdomen and pelvis showed of free air in the abdomen which could be a suspected bowel perforation versus postsurgical changes, moderate ascites, fissure post surgical changes. Chest x-ray shows right pleural effusion. Additionally patient had a heart rate of 125, respirations 26, together with leukocytosis and lactic acidosis patient met clinical sepsis criteria additionally patient's blood pressure dropped to 85/50 mmHg requiring vasopressor support therefore meeting criteria for septic shock. Patient will be admitted to the intensive care unit. Emergency room physician spoke with patient's surgeon, Dr. Gann who requested patient be admitted under hospitalist service and she will follow this case along. 07/21/25 Patient was evaluated at the bedside. She was accompanied by her daughter. She is oriented to the time, place and person. She complained of abdominal pain in all the quadrants. She hasn't had bowel movement since Saturday and also is unable to pass flatus at this time. She has guarding, rigidity and tenderness all over the abdomen, showing the signs of peritonitis. She was seen by Dr Gann this mo rning and is planned to be taken to OR this afternoon. Dueñas catheter is in place, as she wasn't able to pass the urine. There is no fever, chills and any other signs of infection. 07/22/25 Patient was evaluated at the bedside. She was accompanied by her daughter. She is oriented to the time, place and person. She underwent Diagnostic laparoscopy, abdominal washout, drain placement and diverting loop ileostomy creation, The procedure revealed Bilious peritonitis, 2 mm perforation of the colonic anastomosis. She is hemodynamically stable with Blood pressure of 110/73 and HR of 83. Currently she complains of abdominal pain which is getting better than yesterday, its 3-4/10 intensity. There is no rigidity. She is anxious about the outcomes and had discussion regarding her current clinical status and lab parameters. There is no fever, chills and any other signs of infection. 07/23/25 Patient was evaluated at the bedside. She was accompanied by her daughter. She is oriented to the time, place and person. She status post diagnostic laparoscopy, abdominal washout, drain placement and diverting loop ileostomy creation. Currently she complains of abdominal pain which is 5/10 intensity. She also complaints of mild lower back pain There is no fever, chills and any other signs of infection. She has CHRIS drain in-situ with clear fluid along with colostomy bag. She is currently tolerating clear liquid diet. 07/24/2025 Patient is seen and examined at the bedside. Vitals blood pressure ranging in 100s/50s, pulse rate 50s, SpO2 greater than 95% on room air. She mentions about experiencing pressure-like discomfort on the right side of the abdomen and pain when she tries to eat. No acute events last night. She denies fever, chills, nausea, vomiting, chest pain. CHRIS output approximately 100cc/hr, serosanguineous fluid. Ileostomy bag in place. She is tolerating clear liquid diet without any nausea/vomiting. Labs hemoglobin 9.8, BUN 38, creatinine improved from 1.6-1.1. 07/25/2025 Patient is seen and examined at the bedside. She complains of abdominal pain which is 7/10 in intensity. No acute events last night. She denies fever, chills, nausea, vomiting, chest pain. CHRIS output approximately 100cc/hr, serosanguineous fluid. Ileostomy bag in place. The patient has been started on spironolactone 25mg BID and Lasix 20 mg once daily. There is high output from CHRIS but it is clear serous, most likely related to her ascites from her history of liver cirrhosis. She is tolerating clear liquid diet without any nausea/vomiting. 07/26/2025 Patient is seen and examined at the bedside. She complains of abdominal pain which remains constant. No acute events last night. She denies fever, chills, nausea, vomiting, chest pain. Patient is status post with a CHRIS drain. The drain has been collecting the serosanguineous fluid secondary to ascites. She has been tolerating liquid diet and her diet has been advanced to soft diet. She still nielsen s bloating for which probiotics and fibers has been recommended. Hemoglobin has gradually trended down to 9.2 and was given IV Venofer. Patient to get up and ambulate and work with physical therapy. 07/27/2025 Patient is seen and examined at the bedside. She complains of abdominal pain which is 6/10 in intensity. No acute events last night. She denies fever, chills, nausea, vomiting, chest pain. Patient is unable to tolerate the soft diet, hence she is currently receiving the liquid diets. The CHRIS drain output is still high and there was small amount of drainage observed in the right ileostomy. 07/28/2025 Patient is seen and examined at the bedside. She complains of abdominal pain which is 9/10 in intensity. No acute events last night. She denies fever, chills, nausea, vomiting, chest pain. Patient reported pain after eating but no nausea or vomiting. WBC is gradually trending up from 8.3-7.3-11.1-11.8. She had lidocaine patch placed this morning. She was started on simethicone 80 mg yesterday. Pertinent she is currently receiving Dilaudid 0.5 mg. Abdominal ultrasound has been ordered for further assessment. 07/29/2025 Patient is seen and examined at the bedside. She continues to complain of severe abdominal pain, rated 9/10 in intensity, unchanged from prior. She is currently receiving Dilaudid 0.5 mg for pain. She reports discomfort related to Dueñas catheterization. She denies fever, chest pain, nausea or vomiting at this time. No acute events were reported overnight. Blood pressure noted today is noted to be 98/54 mm Hg which is slightly low. Per surgery team, stoma is likely to be removed today. Hemoglobin has trended down from 9.7 g/dl to 9.0 g/dl. 07/30/2025 Patient is seen and examined at the bedside. She continues to complain of severe abdominal pain. Her abdominal distention has slightly improved. Dueñas's catheter was removed due to persistent discomfort. We will continue with scheduled removal of the ascites fluid and from CHRIS bulb. Ultrasound of abdomen was concerning for cholelithiasis with biliary sludge and gallbladder distention. HIDA scan was performed today. If consistent with cholecystitis patient will need cholecystostomy tube placement. 07/31/2025 Patient is seen and examined at the bedside. She was accompanied by her daughter. She continues to complain of severe abdominal pain. She is currently on Dilaudid 0.5mg Q4H PRN, which relieves the symptoms for 2-3 hours, after that she develops same level of pain and discomfort again. Currently awaiting the HIDA scan results. Her sodium level is 133 and albumin level is trending downwards from 2.3 to 2.1. Her Iron panel results showed: Iron 20L, TIBC 147L and %sat 16.3L. For her continuos pain she is started on Fentanyl 25mcg. CHRIS drain culture has beens sent. Based on the results of HIDA scan, CT chest will be planned. 08/01/2025: Patient is seen and examined this morning at bedside. She was accompanied by her daughter. The patient complains of severe abdominal pain. She is currently being managed with Veguita, and Dilaudid for breakthrough pain. HIDA scan results are back, and show acute cholecystitis. Surgery has been made aware of the results. IR has been consulted for cholecystostomy tube placement. The patient will be started on PPN, as recommended by general surgery. The patient follows with Dr. Sol outpatient for her liver cirrhosis. The patients daughter would like her youth support worker Dr. Sol to be involved in the patients care, and be updated with her status. 08/02/2025: Patient is seen and evaluated in the room 432. She was accompanied by her daughter. She complains of severe abdominal pain. She also complained of bleeding through her vagina, pink tinged urine. Her vitals are in the normal range. Her labs are in the normal range except for Hb is 8.6, Na is 135, K is 5.2, BUN is 4, Glucose is 150, CRP is 103.90. She went for placement of cholecystectomy tube by IR. We did a pelvic exam and ordered a vaginal estrogen cream and urinalysis. Also for her hyperkalemia we checked the potassium again and its 4.1. So we will repeat the labs tomorrow. We ordered a dose of albumin for her. 08/03/2025: Patient is seen and evaluated in the room 432. She has mild abdominal pain today. Her pain improved after the placement for cholecystotomy tube. Her vitals are in the normal range. Her labs are normal except for hemoglobin 8.2, glucose 156, CRP 89.8. Her aerobic and anaerobic culture of drain showed no growth. Gastroenterology saw the patient and they recommended 25 grams of 25% IV albumin q12H for 3 days. Her bleeding through the vagina decreased. The drainage through the left abdomen is 100ml, right abdomen is 20ml, left anterior abdomen 5ml. REVIEW OF SYSTEMS CONSTITUTIONAL: No fever, chills, or night sweats. NEUROLOGICAL: Denies headache, sensory and motor deficit. CARDIOVASCULAR: Denies any exertional angina, dyspnea on exertion, palpitations. PULMONARY: Denies any shortness of breath, cough, phlegm/sputum, hemoptysis, pleuritic chest pain. GASTROINTESTINAL: Patient complains of diffuse abdominal pain. She also has bloating. Denies nausea, vomiting. GENITOURINARY: Denies frequency, urgency, nocturia, hematuria or incontinence. PHYSICAL EXAM GENERAL APPEARANCE: The patient is alert, awake and oriented and bedbound. NEUROLOGICAL: No sensory and motor deficits. CHEST: Normal chest expansion. LUNGS: Normal Vesicular breath sound. Absence of any rales, rhonchi or any wheezing. CARDIOVASCULAR: Regular. S1 and S2 normal. No appreciable rubs, murmurs or gallops. ABDOMEN: Abdomen is soft and slightly tender. CHRIS drain is placed. Ileostomy creation. Cholecystostomy tube is placed. Absence of guarding, rigidity and rebound tenderness. GENITOURINARY: No suprapubic tenderness. No costovertebral angle tenderness. Vital Signs (last 8hr) Date Time Temp Pulse Resp B/P (MAP) Pulse Ox O2 Delivery O2 Flow Rate FiO2 08/03/25 15:35 98.4 94 16 114/67 95 Room Air 08/03/25 11:04 98.1 86 17 110/74 96 Room Air LABS: Laboratory: Test 08/03/25 15:26 08/03/25 04:08/02/25 04:30 Range/Units Whole Blood Glucose 156 H 70-110 MG/DL White Blood Count 6.7 4.8-10.8 K/uL Red Blood Count 2.77 L 4.00-5.50 MIL/uL Hemoglobin 8.2 L 12.0-16.0 g/dL Hematocrit 25.7 L 36-48 % Mean Corpuscular Volume 92.8 79-99 fL Mean Corpuscular Hemoglobin 29.6 27.0-33.0 pg Mean Corpuscular Hemoglobin Concent 31.9 L 32.0-36.0 g/dL Red Cell Distribution Width 17.3 H 11.0-15.5 % Platelet Count 201 130-400 K/uL Mean Platelet Volume 9.9 7.5-10.5 fL Nucleated Red Blood Cells 0.0 0.0-0.19 % Sodium Level 136 136-145 mmol/L Potassium Level 4.1 3.5-5.1 mmol/L Chloride Level 105 101-111 mmol/L Carbon Dioxide Level 27 21-32 mmol/L Blood Urea Nitrogen 10 7-18 mg/dL Creatinine 0.5 0.5-1.0 mg/dL Glomerular Filtration Rate Calc 109 >90 mL/min Random Glucose 133 H 70-105 mg/dL Total Calcium 8.1 L 8.5-10.1 mg/dL Magnesium Level 1.80 1.80-2.40 mg/dL Total Bilirubin 0.6 0.2-1.0 mg/dL Aspartate Amino Transf (AST/SGOT) 16 10-37 U/L Alanine Aminotransferase (ALT/SGPT) 9 L 12-78 U/L Alkaline Phosphatase 67 50-136 U/L C-Reactive Protein, Quantitative 89.80 H 0.5-3.0 mg/L Total Protein 5.8 L 6.0-8.3 g/dL Albumin 2.4 L 3.5-5.0 g/dL Immature Granulocyte % (Auto) 0.7 0-1 % Neutrophils (%) (Auto) 74.7 40.0-77.0 % Lymphocytes (%) (Auto) 11.7 L 21.0-51.0 % Monocytes (%) (Auto) 11.3 3.0-13.0 % Eosinophils (%) (Auto) 1.2 0.0-8.0 % Basophils (%) (Auto) 0.4 0.0-5.0 % Neutrophils # (Auto) 5.5 1.8-7.7 K/uL Lymphocytes # (Auto) 0.9 L 1.0-4.8 K/uL Monocytes # (Auto) 0.8 0.1-1.0 K/uL Eosinophils # (Auto) 0.09 0.00-0.70 K/uL Basophils # (Auto) 0.03 0.00-0.20 K/uL Absolute Immature Granulocyte (auto 0.05 0-1 K/uL Red Blood Cell Morphology See comments Prothrombin Time 13.6 H 9.6-11.6 SEC Prothromb Time International Ratio 1.32 H 0.85-1.15 Activated Partial Thromboplast Time 35.3 26.3-35.5 SEC Phosphorus Level 3.7 2.5-4.9 mg/dL Procalcitonin 0.11 0.05-0.5 ng/mL Current Medications Medications (Trade) Dose Ordered Sig/Gregory Route PRN Reason Start Time Stop Time Status Last Admin Dose Admin Acetaminophen (TYLenol 500MG TAB) 500 mg Q6H6 PRN PO MILD PAIN (1-3) 07/27/25 16:30 08/26/25 16:29 Acetaminophen (TYLenol 650MG SUPPOSITORY) 650 mg Q6H PRN RC MILD PAIN (1-3) 07/21/25 00:00 07/27/25 16:22 DC Acetaminophen/ Hydrocodone Bitart (NORco 5/325MG) 1 tab Q4H PRN PO MODERATE PAIN (4-6) 07/31/25 16:30 08/05/25 16:29 08/03/25 03:25 1 TAB Albumin Human 50 ml @ 100 mls/hr Q12H IV 08/02/25 21:30 08/05/25 09:59 08/03/25 08:55 100 MLS/HR Albumin Human 50 ml @ 0 mls/hr Q12H IV 08/02/25 18:30 08/02/25 20:04 DC Albumin Human 100 ml @ 0 mls/hr ONCE IV 07/25/25 12:00 07/26/25 11:59 DC 07/25/25 13:43 100 MLS/HR Clotrimazole (Lotrimin) 1 GM BID TP 07/29/25 21:00 08/28/25 20:59 08/03/25 08:58 1 GM Cyclobenzaprine HCl (Cyclobenzaprine HCl) 5 mg TID PO 07/25/25 14:00 07/26/25 14:00 DC 07/26/25 14:19 5 MG Fentanyl (DURAgesic 25 MCG/HR PATCH) 25 mcg Q72H TD 07/31/25 14:30 07/31/25 14:44 DC Fluconazole/ Sodium Chloride (DiFLUCan 200 MG/ NS 100 ML) 200 mg Q24H IVPB 07/21/25 21:00 08/20/25 20:59 08/02/25 21:04 200 MG Furosemide (LASix 20MG TAB) 20 mg DAILY PO 07/25/25 11:00 08/02/25 11:53 DC 08/02/25 09:42 20 MG Gabapentin (NEURontin 100 mg CAP) 100 mg TID PO 07/29/25 14:00 08/02/25 09:21 DC 08/01/25 20:14 100 MG Hydromorphone HCl (DiLAUDid 0.5MG INJ) 0.5 mg Q4H PRN IVP SEVERE PAIN (7-10) 07/24/25 10:00 07/29/25 09:59 DC 07/29/25 08:22 0.5 MG Hydromorphone HCl (DiLAUDid 0.5MG INJ) 0.5 mg Q4H PRN IVP SEVERE PAIN (7-10) 07/29/25 13:30 08/03/25 13:29 DC 08/03/25 13:09 0.5 MG Insulin Human Regular (humuLIN R 100 UNIT/ML 3ML) INSULIN SLIDING SCAL... ACHS SQ 07/21/25 07:30 08/20/25 07:29 07/22/25 20:40 3 UNIT Lactated Ringer's 1,000 ml @ 75 mls/hr [id number] IV 07/21/25 00:00 07/21/25 13:17 DC 07/21/25 02:57 75 MLS/HR Lactated Ringer's 1,000 ml @ 75 mls/hr [id number] IV 07/21/25 13:30 07/24/25 11:09 DC 07/24/25 09:27 75 MLS/HR Lactobacillus Rhamnosus (Culturelle [employer] & INXPO) 1 each DAILY20 PO 07/26/25 20:00 08/25/25 19:59 08/02/25 21:04 1 EACH Lidocaine (Lidoderm Patch 5%) 1 patch DAILY TP 07/28/25 09:00 08/27/25 08:59 08/03/25 08:56 1 PATCH Magnesium Sulfate 50 ml @ 0 mls/hr PROTOCOL PRN IV MAGNESIUM PROTOCOL 07/21/25 07:00 08/20/25 06:59 08/01/25 06:05 25 MLS/HR Metronidazole/ Sodium Chloride (flaGYL) 500 mg Q8H IV 07/21/25 14:00 07/21/25 13:40 DC Morphine Sulfate (morPHINE 2MG SYG) 2 mg Q4H PRN IVP SEVERE PAIN (7-10) 07/21/25 00:30 07/21/25 13:18 DC 07/21/25 04:46 2 MG Morphine Sulfate (morPHINE 4MG SYG) 4 mg Q3H PRN IV MODERATE PAIN (4-6) 07/21/25 13:30 07/26/25 16:29 DC 07/26/25 10:51 4 MG Norepinephrine 250 ml @ 0 mls/hr PROTOCOL IV 07/20/25 23:30 08/03/25 08:27 DC 07/21/25 10:56 18.45 MLS/HR Ondansetron HCl (zoFRAN 4MG INJ) 4 mg Q4H PRN IVP NAUSEA 07/21/25 13:30 08/20/25 13:29 Ondansetron HCl (zoFRAN 4MG INJ) 4 mg Q6H PRN IV NAUSEA/VOMITING 07/21/25 00:00 07/21/25 13:18 DC Pantoprazole Sodium (PROTonix 40MG INJ) 40 mg BID IV 07/26/25 21:00 08/20/25 08:59 08/03/25 08:55 40 MG Pantoprazole Sodium (PROTonix 40MG INJ) 40 mg DAILY IV 07/21/25 09:00 07/26/25 09:31 DC 07/26/25 08:55 40 MG Pharmacy Profile Note (Pharmacy Communication) 1 each ONCE MISC 07/21/25 15:30 07/21/25 15:16 DC Piperacillin Sod/ Tazobactam Sod 50 ml @ 200 mls/hr ONCE STAT IVPB 07/20/25 19:15 07/20/25 19:29 DC 07/20/25 20:32 200 MLS/HR Piperacillin Sod/ Tazobactam Sod (Zosyn 3.375gm+NS 50ml) 3.375 gm Q12H IV 07/21/25 00:00 07/31/25 00:00 DC 07/30/25 23:55 3.375 GM Piperacillin Sod/ Tazobactam Sod (Zosyn 3.375gm+NS 50ml) 3.375 gm Q8H IVPB 07/31/25 11:30 08/10/25 11:29 08/03/25 12:45 3.375 GM Potassium Chloride 100 ml @ 100 mls/hr AD PRN IV POTASSIUM PROTOCOL 07/24/25 08:30 08/23/25 08:29 07/30/25 06:23 100 MLS/HR Potassium Chloride (K-Dur/Klor-Con 20meq) 20 meq AD PRN PO POTASSIUM PROTOCOL 07/24/25 08:30 08/23/25 08:29 07/27/25 20:33 20 MEQ Potassium Chloride (KCl 10% Elixir 20meq/15ml) 20 meq AD PRN PO POTASSIUM PROTOCOL 07/24/25 08:30 08/23/25 08:29 07/31/25 08:15 20 MEQ Psyllium Hydrophilic Mucilloid (Metamucil) 1 tbs BID PO 07/26/25 21:00 08/25/25 20:59 08/03/25 08:56 1 TBS Simethicone (Mylicon) 80 mg Q6H6 PO 07/27/25 12:00 08/26/25 11:59 08/03/25 12:50 80 MG Sodium Bicarbonate 150 meq/Sodium Chloride 1,150 ml @ 0 mls/hr Q0M IVP 07/21/25 14:00 07/26/25 09:31 DC Sodium Chloride (NS 50ml) 50 ml AD IV 07/31/25 11:30 07/31/25 11:12 DC Spironolactone (Aldactone 25mg) 25 mg BID PO 07/25/25 21:00 07/26/25 09:01 DC 07/26/25 08:56 25 MG Sucralfate (Carafate) 1 gm ACHS PO 07/29/25 21:00 08/28/25 20:59 08/03/25 08:55 1 GM Thiamine HCl (Vitamin B-1) 100 mg DAILY IVP 07/22/25 21:00 08/21/25 20:59 08/03/25 08:56 100 MG Thiamine HCl 100 mg/Sodium Chloride 50 ml @ 100 mls/hr Q24H IM 07/21/25 15:30 07/21/25 16:25 DC Vancomycin HCl (Vancomycin 1g/ 250ml Kit) 1 gm ONCE STAT IV 07/20/25 21:23 07/20/25 21:26 DC 07/20/25 22:06 1 GM Vasopressin 20 units/Sodium Chloride 100 ml @ 0 mls/hr PROTOCOL IV 07/21/25 00:30 08/03/25 08:27 DC 07/21/25 00:10 9 MLS/HR DIAGNOSTICS / RADIOLOGY: [place] [id number] IMAGING REPORT Signed PATIENT: DALLAS BUCHANAN MR#: [id number] : 1970 SEX: F AGE: 55 LOCATION: [facility] ORDER [id number] STATUS: ADM IN REPORT#: [id number] SERVICE REASON: DILATED GB ORDERING PHYSICIAN: MIGUEL CONLEY MD PROCEDURE: JULI PERC - US PERCUTANEOUS DRNG IR Ultrasound assistance for placement of cholecystotomy tube.. CLINICAL INDICATION: Infected gallbladder for placement of cholecystotomy tube.. FINDINGS: Ultrasound was used to access the gallbladder for placement of cholecystotomy tube.. IMPRESSION: Ultrasound guided to access the gallbladder for placement of a cholecystotomy tube.. DICTATED BY: GREER FIORE MD DATE: 08/03/25804 ELECTRONICALLY SIGNED BY: GREER FIORE MD DATE: 08/03/25814 ASSESSMENT: Suspected Bowel Perforation POA Bacterial peritonitis Cholelithiasis Small Bowel Obstruction, Suspected Anastomotic Leak Bilious peritonitis s/p Diagnostic laparoscopy, abdominal washout, drain placement and diverting loop ileostomy creation Atrophic vaginitis hyperkalemia Iron Deficiency anemia Diabetes Mellitus Type 2 POA Acute Kidney Injury POA Septic Shock POA Cirrhosis of liver POA Esophageal Varices Recent Robotic takedown of splenic flexure mobilization, robotic takedown of colovesical fistula with sigmoid colectomy and end-to-end anastomosis surgery PLAN: Bilious peritonitis status post Diagnostic laparoscopy, abdominal washout, drain placement and diverting loop ileostomy creation -Continue close monitoring of the patient -continue physical therapy -Monitor CHRIS drain output -Continues with high output from CHRIS but it is clear serous, most likely related to her ascites from her history of liver cirrhosis -Continue Lactated Ringer's at 75 ml/hr for volume resuscitation and electrolyte replacement -continue Zosyn [day 14] and fluconazole [day 14] -Flexeril 5 mg t.i.d. has been started by the Surgery team. -Probiotics and Fibers have been added for bloating. -Protonix IV increased to twice daily. - Patient has been started on Veguita by general surgery for abdominal pain, and is advised to take Diluadid only for breakthrough pain. -HIDA scan positive for acute cholecystitis. Surgery has been made aware. - IR did a Fluoroscopy and ultrasound-guided placement of cholecystotomy tube and cholecystogram on 08/02/2025. -Dr. Sol saw the patient and he recommended 25g of 25% albumin for 3 days. -Currently she is on PPN. Bacterial Peritonitis * Post Surgical patient with Bacterial peritonitis positive for ESBL * Culture and sensitivity shows susceptibility to Zosyn, Gentamicin and Meropenem. * Likely secondary to post-operative intraabdominal infection with risk of ongoing contamination. * Currently patient is on Zosyn (Day 14) * For her continuos pain she is started on Fentanyl 25mcg. CHRIS drain culture has beens sent. Cholelithiasis * Patient complained of upper abdominal pain * Ultrasound abdomen showed: Cirrhotic-appearing liver * Cholelithiasis and biliary sludge with gallbladder distension and Small volume ascites. * Hida scan shows acute cholecystitis. * Per Surgery: IR to be consulted for cholecystostomy tube placement. * IR did a Fluoroscopy and ultrasound-guided placement of cholecystotomy tube and cholecystogram on 08/02/2025. * After the procedure her abdominal pain is decreased. Small Bowel Obstruction, Suspected * Patient complaints of abdominal pain which is 9/10 on intensity * Abdominal Xray showed: Dilated small bowel loops are seen in mid abdomen * Perform Serial abdominal exams * Pain management(avoid excess opioids if ileus is suspected) * Evaluate drain, bowel status * Monitor for resolution vs progression of Ileus/obstruction. 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 - CT abdominal pelvis w/contrast done on 07/20/2025 showed Free air in the upper abdomen is seen, suggesting perforated bowel vs post surgical changes. No obstruction. -underwent Diagnostic laparoscopy, abdominal washout, drain placement and diverting loop ileostomy creation for biliary peritonitis Atrophic vaginitis * Today her bleeding is resolved * We did a pelvic examination. * Ordered a urinalysis and topical estrogen. hyperkalemia * Today his potassium is 4.1 * Will repeat her labs tomorrow. Iron Deficiency anemia * Hemoglobin has trended down from 8.6 to 8.2. 08/03/25 * Iron sucrose (venofer) has been ordered. * Anemia panel has been ordered. Results showed Iron 24L, %sat 16.3 and TIBC 147L. 07/30/25 * Recommend trending Hgb and transfuse as needed to goal Hgb >7. * Plan to initiate the patient on Venofer, her last dose of Venofer was 200 mg on 07/26/2025 * Iron level is 20L, % saturation 11.9, TIBC 167L, Ferritin 129. 07/25/25 Septic Shock -resolved -Her WBC is 6.7 today. 08/03/25 -Her WBC during the presentation was 21.2 and today its 7.3. 07/26/25 -lactic acid is 1.5 on 07/31/2025 -blood and urine culture results are negative Acute Kidney Injury Resolved -Creatinine improved from 1.6-1.1-0.7-0.6-0.6-0.6-0.6-0.6-0.5-0.6-0.6-0.5. 08/03/25 -Initial FeNA is 0.1 %, probably secondary to dehydration and NSAIDs overuse. -initial Urine sodium is < 13 and urine creatinine is 132.17. -Avoid nephrotoxic agents, eg. NSAIDS. -Weight patient daily. -Monitor intake and output. -Ordered urinalysis Cirrhosis of liver -Patient has a past history of cirrhosis of liver. - Liver functions are within normal limits. AST 20, ALT 9 and ALP 67. - Avoid NSAIDs and high dose acetaminophen. -Maintain appropriate volume of the patient. -Patient has been started on Spironolactone 25 mg b.i.d. and Lasix 20 mg once daily. 07/25/25 -Albumin is given today for the hypotension. -Patients family is requesting that Dr. Sol be involved in the patients care. Supportive measures -Maintain IV fluids, correct electrolytes -Serial abdominal exams -[employer] on avoidance of NSAIDS and other related triggers. -Monitor Vitals and perform morning labs regularly Continue GI prophylaxis with Pantop Continue DVT prophylaxis with SCDs, we will avoid heparin due to history of allergies to porcine, we will coordinate with surgery consult on initiation of other anticoagulants ATTESTATION BY PHYSICIAN I have seen and examined the patient. I reviewed the documentation, medical decision making, and treatment plan as noted by the resident provider above. I agree with the findings and plan of care. Miguel Conley MD, AKSHAY MD Aug 03, 2025 17:25
[2025-08-03] MEDS: MULTITRACE-4 ADULT 10ML VIAL 3 ML, M.V.I. IV [ADULT] 10 ML in CLINIMIX-E4.25%AA/D5+LYT2... IV ONE (21:51)
--- NOTE | 2025-08-03 23:21 | PN ---
INFECTIOUS DISEASE PROGRESS NOTE Date of Service: Aug 03, 2025 SUBJECTIVE: Patient is status post cholecystostomy tube placement to the right side day # 1. Remaining afebrile and the WBC is 6.7. Continues on Zosyn and fluconazole. Participating well with physical therapy. No other issues reported by nursing. PHYSICAL EXAM EYES: Anicteric. Pupils equal and reactive. HENT: No oral thrush seen, moist Oral mucosa. NECK: Supple, no JVD or thyromegaly. LUNGS: Good air entry. No rales, no rhonchi. CARDIOVASCULAR: S1, S2 regular. No murmur heard. ABDOMEN: Soft, non tender, bowel sounds present, no organomegaly. CHRIS drain. Ileostomy creation. Right cholecystostomy tube. CENTRAL NERVOUS SYSTEM: Awake, alert, oriented x 3. SKIN: No rashes, no swelling. LYMPHATICS: No peripheral lymphadenopathy. MUSCULOSKELETAL: No joint swelling, erythema or tenderness. EXTREMITIES: No cyanosis or clubbing. BACK: No deformity, no pressure ulcer. GENITOURINARY: No dysuria or hematuria. Vital Sign (Last 12 Hours) 08/03/25 08/03/25 15:35 20:00 Temp 98.4 98.4 Pulse 94 94 Resp 16 20 B/P (MAP) 114/67 122/57 Pulse Ox 95 96 O2 Delivery Room Air Room Air Intake & Output (last 24hrs) 08/02/25 08/02/25 08/03/25 15:00 23:00 07:00 Intake Total 150 ml 1100.0 ml 960.0 ml Output Total 500 ml 1525 ml Balance 150 ml 600.0 ml -565.0 ml LABS: Laboratory: Test 08/03/25 19:43 08/03/25 04:30 08/02/25 04:30 Range/Units Whole Blood Glucose 152 H 70-110 MG/DL White Blood Count 6.7 4.8-10.8 K/uL Red Blood Count 2.77 L 4.00-5.50 MIL/uL Hemoglobin 8.2 L 12.0-16.0 g/dL Hematocrit 25.7 L 36-48 % Mean Corpuscular Volume 92.8 79-99 fL Mean Corpuscular Hemoglobin 29.6 27.0-33.0 pg Mean Corpuscular Hemoglobin Concent 31.9 L 32.0-36.0 g/dL Red Cell Distribution Width 17.3 H 11.0-15.5 % Platelet Count 201 130-400 K/uL Mean Platelet Volume 9.9 7.5-10.5 fL Nucleated Red Blood Cells 0.0 0.0-0.19 % Sodium Level 136 136-145 mmol/L Potassium Level 4.1 3.5-5.1 mmol/L Chloride Level 105 101-111 mmol/L Carbon Dioxide Level 27 21-32 mmol/L Blood Urea Nitrogen 10 7-18 mg/dL Creatinine 0.5 0.5-1.0 mg/dL Glomerular Filtration Rate Calc 109 >90 mL/min Random Glucose 133 H 70-105 mg/dL Total Calcium 8.1 L 8.5-10.1 mg/dL Magnesium Level 1.80 1.80-2.40 mg/dL Total Bilirubin 0.6 0.2-1.0 mg/dL Aspartate Amino Transf (AST/SGOT) 16 10-37 U/L Alanine Aminotransferase (ALT/SGPT) 9 L 12-78 U/L Alkaline Phosphatase 67 50-136 U/L C-Reactive Protein, Quantitative 89.80 H 0.5-3.0 mg/L Total Protein 5.8 L 6.0-8.3 g/dL Albumin 2.4 L 3.5-5.0 g/dL Immature Granulocyte % (Auto) 0.7 0-1 % Neutrophils (%) (Auto) 74.7 40.0-77.0 % Lymphocytes (%) (Auto) 11.7 L 21.0-51.0 % Monocytes (%) (Auto) 11.3 3.0-13.0 % Eosinophils (%) (Auto) 1.2 0.0-8.0 % Basophils (%) (Auto) 0.4 0.0-5.0 % Neutrophils # (Auto) 5.5 1.8-7.7 K/uL Lymphocytes # (Auto) 0.9 L 1.0-4.8 K/uL Monocytes # (Auto) 0.8 0.1-1.0 K/uL Eosinophils # (Auto) 0.09 0.00-0.70 K/uL Basophils # (Auto) 0.03 0.00-0.20 K/uL Absolute Immature Granulocyte (auto 0.05 0-1 K/uL Red Blood Cell Morphology See comments Prothrombin Time 13.6 H 9.6-11.6 SEC Prothromb Time International Ratio 1.32 H 0.85-1.15 Activated Partial Thromboplast Time 35.3 26.3-35.5 SEC Phosphorus Level 3.7 2.5-4.9 mg/dL Procalcitonin 0.11 0.05-0.5 ng/mL ASSESSMENT: Acute cholecystitis, status post cholecystostomy tube placement. Hypoxic respiratory failure requiring oxygen support, resolved. Septic shock. Generalized peritonitis with ESBL and E coli infection. Infection with multidrug resistant organism. Abdominal pain. Hypoalbuminemia. Suspected bowel perforation, s/p diagnostic laparoscopy, abdominal washout, ileostomy creation and CHRIS drain placement on 07/21/2025. Diabetes mellitus. Recent colovesical fistula repair with sigmoid colon resection and anastomosis on 07/09/2025 PLAN: Continue Zosyn. Continue fluconazole. Continue pain management. Avoid nephrotoxic medications. Continue GI prophylaxis. Continue antidiabetics. Continue physical therapy. We will follow up on the culture results. This case was reviewed and discussed with my supervising physician Dr. Roger and the above assessment and plan was formulated and agreed upon. ATTESTATION BY PHYSICIAN I have seen and examined the patient. I reviewed the documentation, medical decision making, and treatment plan as noted by the mid-level provider above. I agree with the findings and plan of care. AMIE ROGER MD, [facility] Aug 03, 2025 23:21
[2025-08-04] VITALS (10 sets, daily range): BP systolic 93–109; BP diastolic 42–75; PULSE 76–94; RESP 16–20; TEMP 98–98.7; O2SAT 98
[2025-08-04 03:59] LABS: NUCLEATED RED BLOOD CELLS 0.0 % (0.0-0.19); PLATELET COUNT (AUTO) 180.0 K/uL (130-400); RED BLOOD CELL COUNT(AUTO) 2.71 MIL/uL (4.00-5.50); RED CELL DISTRIBUTION WIDTH 17.7 % (11.0-15.5); WHITE BLOOD COUNT (AUTO) 5.7 K/uL (4.8-10.8)
[2025-08-04 04:17] LABS: CREATININE 0.5 mg/dL (0.5-1.0); GLOMERULAR FILTR. RATE CALC 109.0 mL/min (>90); GLUCOSE,RANDOM 138.0 mg/dL (70-105); SODIUM SERUM 136.0 mmol/L (136-145); UREA NITROGEN, BLOOD 9.0 mg/dL (7-18)
--- NOTE | 2025-08-04 13:36 | PN ---
55-year-old female status post diverting ileostomy and drain placement two weeks ago. Had cholecystostomy tube placed two days ago. Has had some improvement of her pain since then but not significant enough to tolerate a diet. Reports the pain is in the upper abdomen radiating to both right upper and left upper quadrant and towards her back. Has been ambulating today. Could not really have more than two bites of her food plate today. No nausea. No vomiting is just severe pain. That she describes as burning Exam Patient in no distress Cholecystostomy tube in place with minimal bilious output Ileostomy pink patent and productive CHRIS drain with minimal serous output Laparoscopic incisions clean dry and intact healing well Assessment and plan Patient with minimal to no improvement after cholecystostomy tube. Still not tolerating her diet. Had a conversation with Dr. Sol he plans to do an EGD tomorrow. We are planning to do a CT abdomen and pelvis with IV contrast only since patient does not think she can tolerate the oral contrast. We will do it a stat today. Vitals/Labs Vital Signs Date Time Temp Pulse Resp B/P (MAP) Pulse Ox O2 Delivery O2 Flow Rate FiO2 08/04/25 11:33 98.4 82 16 97/64 98 Room Air 08/04/25 08:30 0 21 Laboratory Tests 08/04/25 03:40 Medications Current Medications Sodium Chloride 1,000 ml @ 0 mls/hr ONCE ONCE IV; Start 07/20/25 at 18:30; Stop 07/20/25 at 18:31; Status DC Piperacillin Sod/ Tazobactam Sod 50 ml @ 200 mls/hr ONCE STAT IVPB Last administered on 07/20/25at 20:32; Start 07/20/25 at 19:15; Stop 07/20/25 at 19:29; Status DC Sodium Chloride 2,109 ml @ 703 mls/hr ONCE ONCE IV Last administered on 07/20/25at 20:28; Start 07/20/25 at 19:30; Stop 07/20/25 at 22:29; Status DC Iohexol 75 ml STK-MED ONCE IV; Start 07/20/25 at 20:31; Stop 07/20/25 at 20:31; Status DC Vancomycin HCl 1 gm ONCE STAT IV Last administered on 07/20/25at 22:06; Start 07/20/25 at 21:23; Stop 07/20/25 at 21:26; Status DC Morphine Sulfate 4 mg ONCE ONCE IVP Last administered on 07/20/25at 23:15; Start 07/20/25 at 23:30; Stop 07/20/25 at 23:31; Status DC Ondansetron HCl 4 mg ONCE ONCE IVP Last administered on 07/20/25at 23:14; Start 07/20/25 at 23:30; Stop 07/20/25 at 23:31; Status DC Norepinephrine 250 ml @ 0 mls/hr PROTOCOL IV Last administered on 07/21/25at 10:56; Start 07/20/25 at 23:30; Stop 08/03/25 at 08:27; Status DC Piperacillin Sod/ Tazobactam Sod 3.375 gm Q12H IV Last administered on 07/30/25at 23:55; Start 07/21/25 at 00:00; Stop 07/31/25 at 00:00; Status DC Acetaminophen 650 mg Q6H PRN RC; Start 07/21/25 at 00:00; Stop 07/27/25 at 16:22; Status DC Pantoprazole Sodium 40 mg DAILY IV Last administered on 07/26/25at 08:55; Start 07/21/25 at 09:00; Stop 07/26/25 at 09:31; Status DC Ondansetron HCl 4 mg Q6H PRN IV; Start 07/21/25 at 00:00; Stop 07/21/25 at 13:18; Status DC Morphine Sulfate 2 mg Q4H PRN IVP Last administered on 07/21/25at 04:46; Start 07/21/25 at 00:30; Stop 07/21/25 at 13:18; Status DC Lactated Ringer's 1,000 ml @ 75 mls/hr [id number] IV Last administered on 07/21/25at 02:57; Start 07/21/25 at 00:00; Stop 07/21/25 at 13:17; Status DC Insulin Human Regular INSULIN SLIDING SCAL... ACHS SQ Last administered on 07/22/25at 20:40; Start 07/21/25 at 07:30; Stop 08/20/25 at 07:29 Vasopressin 20 units/Sodium Chloride 100 ml @ 0 mls/hr PROTOCOL IV Last administered on 07/21/25at 00:10; Start 07/21/25 at 00:30; Stop 08/03/25 at 08:27; Status DC Vasopressin 20 units STK-MED ONCE .ROUTE; Start 07/21/25 at 00:10; Stop 07/21/25 at 00:11; Status DC Magnesium Sulfate 50 ml @ 0 mls/hr PROTOCOL PRN IV Last administered on 08/01/25at 06:05; Start 07/21/25 at 07:00; Stop 08/20/25 at 06:59 Acetaminophen 100 ml @ As Directed STK-MED ONCE .ROUTE; Start 07/21/25 at 09:42; Stop 07/21/25 at 09:42; Status DC Famotidine 20 mg STK-MED ONCE IV; Start 07/21/25 at 09:42; Stop 07/21/25 at 09:42; Status DC Albumin Human 500 ml @ As Directed STK-MED ONCE IV; Start 07/21/25 at 09:45; Stop 07/21/25 at 09:45; Status DC Phenylephrine HCl 10 mg STK-MED ONCE IV; Start 07/21/25 at 09:48; Stop 07/21/25 at 09:48; Status DC Dexamethasone Sodium Phosphate 10 mg STK-MED ONCE .ROUTE; Start 07/21/25 at 09:52; Stop 07/21/25 at 09:52; Status DC Ondansetron HCl 4 mg STK-MED ONCE .ROUTE; Start 07/21/25 at 09:52; Stop 07/21/25 at 09:52; Status DC Lidocaine HCl 100 mg STK-MED ONCE .ROUTE; Start 07/21/25 at 09:52; Stop 07/21/25 at 09:52; Status DC Succinylcholine Chloride 200 mg STK-MED ONCE .ROUTE; Start 07/21/25 at 09:53; Stop 07/21/25 at 09:53; Status DC Glycopyrrolate 1 mg STK-MED ONCE .ROUTE; Start 07/21/25 at 09:53; Stop 07/21/25 at 09:53; Status DC Fentanyl Citrate 100 mcg STK-MED ONCE .ROUTE; Start 07/21/25 at 09:54; Stop 07/21/25 at 09:54; Status DC Propofol 200 mg STK-MED ONCE IV; Start 07/21/25 at 09:54; Stop 07/21/25 at 09:54; Status DC Neostigmine Methylsulfate 10 mg STK-MED ONCE IV; Start 07/21/25 at 09:54; Stop 07/21/25 at 09:54; Status DC Rocuronium [place] 50 mg STK-MED ONCE .ROUTE; Start 07/21/25 at 09:54; Stop 07/21/25 at 09:54; Status DC Ketamine HCl 50 mg STK-MED ONCE .ROUTE; Start 07/21/25 at 09:55; Stop 07/21/25 at 09:56; Status DC Epinephrine HCl 1 mg STK-MED ONCE .ROUTE; Start 07/21/25 at 10:03; Stop 07/21/25 at 10:03; Status DC Midazolam HCl 2 mg STK-MED ONCE .ROUTE; Start 07/21/25 at 10:05; Stop 07/21/25 at 10:05; Status DC Indocyanine Green 25 mg STK-MED ONCE IJ; Start 07/21/25 at 10:49; Stop 07/21/25 at 10:49; Status DC Ephedrine Sulfate 50 mg STK-MED ONCE .ROUTE; Start 07/21/25 at 11:17; Stop 07/21/25 at 11:17; Status DC Bupivacaine HCl 5 mg STK-MED ONCE .ROUTE Last administered on 07/21/25at 12:14; Start 07/21/25 at 11:49; Stop 07/21/25 at 11:49; Status DC Sodium Bicarbonate 200 ml @ As Directed STK-MED ONCE .ROUTE; Start 07/21/25 at 12:19; Stop 07/21/25 at 12:19; Status DC Fentanyl Citrate 100 mcg STK-MED ONCE .ROUTE; Start 07/21/25 at 12:23; Stop 07/21/25 at 12:23; Status DC Phytonadione 10 mg STK-MED ONCE .ROUTE; Start 07/21/25 at 13:05; Stop 07/21/25 at 13:05; Status DC Lactated Ringer's 1,000 ml @ 75 mls/hr [id number] IV Last administered on 07/24/25at 09:27; Start 07/21/25 at 13:30; Stop 07/24/25 at 11:09; Status DC Morphine Sulfate 4 mg Q3H PRN IV Last administered on 07/26/25at 10:51; Start 07/21/25 at 13:30; Stop 07/26/25 at 16:29; Status DC Ondansetron HCl 4 mg Q4H PRN IVP; Start 07/21/25 at 13:30; Stop 08/20/25 at 13:29 Fentanyl Citrate 100 mcg STK-MED ONCE .ROUTE; Start 07/21/25 at 13:26; Stop 07/21/25 at 13:26; Status DC Sodium Bicarbonate 150 meq/Sodium Chloride 1,150 ml @ 0 mls/hr Q0M IVP; Start 07/21/25 at 14:00; Stop 07/26/25 at 09:31; Status DC Sodium Bicarbonate 100 meq ONCE ONCE IV; Start 07/21/25 at 14:00; Stop 07/21/25 at 14:23; Status DC Metronidazole/ Sodium Chloride 500 mg Q8H IV; Start 07/21/25 at 14:00; Stop 07/21/25 at 13:40; Status DC Fluconazole/ Sodium Chloride 200 mg Q24H IVPB Last administered on 08/03/25at 21:43; Start 07/21/25 at 21:00; Stop 08/20/25 at 20:59 Pharmacy Profile Note 1 each ONCE MISC; Start 07/21/25 at 15:30; Stop 07/21/25 at 15:16; Status DC Thiamine HCl 100 mg/Sodium Chloride 50 ml @ 100 mls/hr Q24H IM; Start 07/21/25 at 15:30; Stop 07/21/25 at 16:25; Status DC Sodium Bicarbonate 100 meq ONCE ONCE IV Last administered on 07/21/25at 16:42; Start 07/21/25 at 16:30; Stop 07/21/25 at 16:31; Status DC Thiamine HCl 100 mg DAILY IVP Last administered on 08/04/25at 08:58; Start 07/22/25 at 21:00; Stop 08/21/25 at 20:59 Diatrizoate Meglum/ Diatrizoate Sod 30 ml STK-MED ONCE .ROUTE; Start 07/23/25 at 15:13; Stop 07/23/25 at 15:13; Status DC Potassium Chloride 100 ml @ 100 mls/hr AD PRN IV Last administered on 07/30/25at 06:23; Start 07/24/25 at 08:30; Stop 08/23/25 at 08:29 Potassium Chloride 20 meq AD PRN PO Last administered on 07/31/25at 08:15; Start 07/24/25 at 08:30; Stop 08/23/25 at 08:29 Potassium Chloride 20 meq AD PRN PO Last administered on 07/27/25at 20:33; Start 07/24/25 at 08:30; Stop 08/23/25 at 08:29 Hydromorphone HCl 0.5 mg Q4H PRN IVP Last administered on 07/29/25at 08:22; Start 07/24/25 at 10:00; Stop 07/29/25 at 09:59; Status DC Spironolactone 25 mg BID PO Last administered on 07/26/25at 08:56; Start 07/25/25 at 21:00; Stop 07/26/25 at 09:01; Status DC Albumin Human 100 ml @ 0 mls/hr ONCE ONCE IV Last administered on 07/25/25at 17:05; Start 07/25/25 at 10:30; Stop 07/25/25 at 10:31; Status DC Albumin Human 100 ml @ 0 mls/hr ONCE IV Last administered on 07/25/25at 13:43; Start 07/25/25 at 12:00; Stop 07/26/25 at 11:59; Status DC Cyclobenzaprine HCl 5 mg TID PO Last administered on 07/26/25at 14:19; Start 07/25/25 at 14:00; Stop 07/26/25 at 14:00; Status DC Furosemide 20 mg DAILY PO Last administered on 08/02/25at 09:42; Start 07/25/25 at 11:00; Stop 08/02/25 at 11:53; Status DC Pantoprazole Sodium 40 mg BID IV Last administered on 08/04/25at 08:58; Start 07/26/25 at 21:00; Stop 08/20/25 at 08:59 Psyllium Hydrophilic Mucilloid 1 tbs BID PO Last administered on 08/03/25at 21:43; Start 07/26/25 at 21:00; Stop 08/25/25 at 20:59 Lactobacillus Rhamnosus 1 each DAILY20 PO Last administered on 08/03/25at 21:44; Start 07/26/25 at 20:00; Stop 08/25/25 at 19:59 Iron Sucrose 200 mg ONCE ONCE IV Last administered on 07/26/25at 14:19; Start 07/26/25 at 14:00; Stop 07/26/25 at 14:01; Status DC Lidocaine 1 patch DAILY TP Last administered on 08/04/25at 08:55; Start 07/28/25 at 09:00; Stop 08/27/25 at 08:59 Simethicone 80 mg Q6H6 PO Last administered on 08/04/25at 12:38; Start 07/27/25 at 12:00; Stop 08/26/25 at 11:59 Acetaminophen 500 mg Q6H6 PRN PO; Start 07/27/25 at 16:30; Stop 08/26/25 at 16:29 Lidocaine 1 patch ONCE ONCE TP Last administered on 07/27/25at 19:25; Start 07/27/25 at 19:30; Stop 07/27/25 at 19:31; Status DC Albumin Human 50 ml @ 0 mls/hr AD ONCE IV Last administered on 07/28/25at 17:44; Start 07/28/25 at 15:30; Stop 07/28/25 at 15:31; Status DC Albumin Human 100 ml @ 0 mls/hr AD ONCE IV Last administered on 07/29/25at 14:26; Start 07/29/25 at 12:30; Stop 07/29/25 at 12:31; Status DC Hydromorphone HCl 0.5 mg Q4H PRN IVP Last administered on 08/03/25at 13:09; Start 07/29/25 at 13:30; Stop 08/03/25 at 13:29; Status DC Gabapentin 100 mg TID PO Last administered on 08/01/25at 20:14; Start 07/29/25 at 14:00; Stop 08/02/25 at 09:21; Status DC Clotrimazole 1 GM BID TP Last administered on 08/04/25at 12:43; Start 07/29/25 at 21:00; Stop 08/28/25 at 20:59 Sucralfate 1 gm ACHS PO Last administered on 08/04/25at 12:38; Start 07/29/25 at 21:00; Stop 08/28/25 at 20:59 Piperacillin Sod/ Tazobactam Sod 3.375 gm Q8H IVPB Last administered on 08/04/25at 12:38; Start 07/31/25 at 11:30; Stop 08/10/25 at 11:29 Sodium Chloride 50 ml AD IV; Start 07/31/25 at 11:30; Stop 07/31/25 at 11:12; Status DC Iron Sucrose 300 mg/Sodium Chloride 250 ml @ 83 mls/hr ONCE ONCE IV Last administered on 07/31/25at 13:36; Start 07/31/25 at 12:00; Stop 07/31/25 at 15:00; Status DC Fentanyl 25 mcg Q72H TD; Start 07/31/25 at 14:30; Stop 07/31/25 at 14:44; Status DC Acetaminophen/ Hydrocodone Bitart 1 tab Q4H PRN PO Last administered on 08/04/25at 09:08; Start 07/31/25 at 16:30; Stop 08/05/25 at 16:29 Chromium/Copper/ Manganese/Zinc 3 ml/Multivitamins/ Minerals 10 ml/ Amino Acids/ Electrolytes/ Dextrose 2,000 ml @ 80 mls/hr ONCE ONCE IV Last administered on 08/01/25at 20:25; Start 08/01/25 at 20:00; Stop 08/02/25 at 20:59; Status DC Albumin Human 100 ml @ 0 mls/hr AD ONCE IV Last administered on 08/02/25at 09:41; Start 08/02/25 at 09:30; Stop 08/02/25 at 09:33; Status DC Lidocaine HCl 20 ml STK-MED ONCE .ROUTE; Start 08/02/25 at 11:24; Stop 08/02/25 at 11:24; Status DC Iohexol 50 ml STK-MED ONCE IV; Start 08/02/25 at 11:24; Stop 08/02/25 at 11:25; Status DC Estrogens Conjugated 1 appl ONCE ONCE VG; Start 08/02/25 at 12:00; Stop 08/02/25 at 12:01; Status DC Fentanyl Citrate 100 mcg STK-MED ONCE .ROUTE; Start 08/02/25 at 11:53; Stop 08/02/25 at 11:53; Status DC Midazolam HCl 2 mg STK-MED ONCE .ROUTE; Start 08/02/25 at 11:54; Stop 08/02/25 at 11:54; Status DC Midazolam HCl 2 mg STK-MED ONCE .ROUTE; Start 08/02/25 at 12:15; Stop 08/02/25 at 12:16; Status DC Multivitamins/ Minerals 10 ml/ Chromium/Copper/ Manganese/Zinc 3 ml/Amino Acids/ Electrolytes/ Dextrose 2,000 ml @ 80 mls/hr ONCE ONCE IV Last administered on 08/02/25at 21:08; Start 08/02/25 at 20:00; Stop 08/03/25 at 18:39; Status DC Estrogens Conjugated 1 appl ONCE ONCE VG Last administered on 08/02/25at 18:47; Start 08/02/25 at 18:30; Stop 08/02/25 at 18:31; Status DC Albumin Human 50 ml @ 0 mls/hr Q12H IV; Start 08/02/25 at 18:30; Stop 08/02/25 at 20:04; Status DC Albumin Human 50 ml @ 100 mls/hr Q12H IV Last administered on 08/04/25at 08:59; Start 08/02/25 at 21:30; Stop 08/05/25 at 09:59 Hydromorphone HCl 0.5 mg Q4H PRN IVP Last administered on 08/04/25at 03:47; Start 08/03/25 at 18:00; Stop 08/08/25 at 17:59 Chromium/Copper/ Manganese/Zinc 3 ml/Multivitamins/ Minerals 10 ml/ Amino Acids/ Electrolytes/ Dextrose 2,000 ml @ 80 mls/hr ONCE ONCE IV Last administered on 08/03/25at 21:51; Start 08/03/25 at 20:00; Stop 08/04/25 at 12:47; Status DC Chromium/Copper/ Manganese/Zinc 3 ml/Multivitamins/ Minerals 10 ml/ Amino Acids/ Electrolytes/ Dextrose 2,000 ml @ 80 mls/hr ONCE ONCE IV; Start 08/04/25 at 21:00; Stop 08/05/25 at 21:59 SUSAN JHAVERI MD Aug 04, 2025 13:36
--- NOTE | 2025-08-04 14:20 | PN ---
NEPHROLOGY PROGRESS NOTE Date/Time Patient Seen: Aug 04, 2025 SUBJECTIVE: This is a 55-year-old female with a past medical history of diabetes mellitus type 2, liver cirrhosis, esophageal varices. He presented to the emergency room with chief complain of abdominal pain. CT of the abdomen showed moderate small bowel enteritis with free air in the upper abdomen, suggesting perforated bowel versus post surgical changes. No obst ruction. S/p diagnostic laparoscopy, abdominal washout, drain placement and diverting loop ileostomy creation with CHRIS drain 10 [place] on 07/21 S/P fluoroscopy and ultrasound-guided placement of cholecystotomy tube and cholecystogram. She was noted to have elevated BUN/creatinine We are consulted for renal failure Renal function and electrolytes are stable. She is not tolerating diet, pending EGD and CT scan of the abdomen and pelvis She was seen in the medial floor, in no acute distress No family at the bedside REVIEW OF SYSTEMS: GENERAL: Positive for abdominal pain and nausea NEUROLOGIC: Negative for any blurry vision, blind spots, double vision, facial asymmetry, dysphagia, dysarthria, hemiparesis, hemisensory deficits, vertigo, ataxia. HEENT: Negative for any head trauma, neck trauma, neck stiffness, photophobia, phonophobia, sinusitis, rhinitis. CARDIAC: Negative for any chest pain, dyspnea on exertion, paroxysmal nocturnal dyspnea, peripheral edema. PULMONARY: Negative for any shortness of breath, wheezing, COPD, or TB exposure. GASTROINTESTINAL: Negative for any abdominal pain, nausea, vomiting, bright red blood per rectum, melena. GENITOURINARY: Negative for any dysuria, hematuria, incontinence. INTEGUMENTARY: Negative for any rashes, cuts, insect bites. RHEUMATOLOGIC: Negative for any joint pains, photosensitive rashes, history of vasculitis or kidney problems. HEMATOLOGIC: Negative for any abnormal bruising, frequent infections or bleeding. Vital Signs (last 8hr) Date Time Temp Pulse Resp B/P (MAP) Pulse Ox O2 Delivery O2 Flow Rate FiO2 08/04/25 11:33 98.4 82 16 97/64 98 Room Air 08/04/25 08:30 98 Room Air* 0 21 08/04/25 07:43 98.2 81 18 109/57 98 Room Air PHYSICAL EXAM: GENERAL: Alert and oriented x 3. No acute distress. Well-nourished. EYES: EOMI. Anicteric. HENT: Moist mucous membranes. No scleral icterus. No cervical lymphadenopathy. LUNGS: Clear to auscultation bilaterally. No accessory muscle use. CARDIOVASCULAR: Regular rate and rhythm. No murmur. No JVD. ABDOMEN: Soft, non-tender and non-distended. No palpable masses. EXTREMITIES: No edema. Non-tender SKIN: No rashes or lesions. Warm. NEUROLOGIC: No focal neurological deficits. CN II-XII grossly intact, but not i ndividually tested. PSYCHIATRIC: Cooperative. Appropriate mood and affect. Current Medications Medications (Trade) Dose Ordered Sig/Gregory Route Start Time Stop Time Status Last Admin Dose Admin Albumin Human 100 ml @ 0 mls/hr ONCE IV 07/25/25 12:00 07/26/25 11:59 DC 07/25/25 13:43 100 MLS/HR Cyclobenzaprine HCl (Cyclobenzaprine HCl) 5 mg TID PO 07/25/25 14:00 07/26/25 14:00 DC 07/26/25 14:19 5 MG Fluconazole/ Sodium Chloride (DiFLUCan 200 MG/ NS 100 ML) 200 mg Q24H IVPB 07/21/25 21:00 08/20/25 20:59 07/25/25 20:47 200 MG Furosemide (LASix 20MG TAB) 20 mg DAILY PO 07/25/25 11:00 08/24/25 10:59 07/26/25 08:56 20 MG Insulin Human Regular (humuLIN R 100 UNIT/ML 3ML) INSULIN SLIDING SCAL... ACHS SQ 07/21/25 07:30 08/20/25 07:29 07/22/25 20:40 3 UNIT Lactated Ringer's 1,000 ml @ 75 mls/hr [id number] IV 07/21/25 00:00 07/21/25 13:17 DC 07/21/25 02:57 75 MLS/HR Lactated Ringer's 1,000 ml @ 75 mls/hr [id number] IV 07/21/25 13:30 07/24/25 11:09 DC 07/24/25 09:27 75 MLS/HR Lactobacillus Rhamnosus ([facility] [email or web address]) 1 each DAILY20 PO 07/26/25 20:00 08/25/25 19:59 Metronidazole/ Sodium Chloride (flaGYL) 500 mg Q8H IV 07/21/25 14:00 07/21/25 13:40 DC Norepinephrine 250 ml @ 0 mls/hr PROTOCOL IV 07/20/25 23:30 08/19/25 23:29 07/21/25 10:56 18.45 MLS/HR Pantoprazole Sodium (PROTonix 40MG INJ) 40 mg BID IV 07/26/25 21:00 08/20/25 08:59 Pantoprazole Sodium (PROTonix 40MG INJ) 40 mg DAILY IV 07/21/25 09:00 07/26/25 09:31 DC 07/26/25 08:55 40 MG Pharmacy Profile Note (Pharmacy Communication) 1 each ONCE MISC 07/21/25 15:30 07/21/25 15:16 DC Piperacillin Sod/ Tazobactam Sod 50 ml @ 200 mls/hr ONCE STAT IVPB 07/20/25 19:15 07/20/25 19:29 DC 07/20/25 20:32 200 MLS/HR Piperacillin Sod/ Tazobactam Sod (Zosyn 3.375gm+NS 50ml) 3.375 gm Q12H IV 07/21/25 00:00 07/31/25 00:00 07/26/25 12:10 3.375 GM Psyllium Hydrophilic Mucilloid (Metamucil) 1 tbs BID PO 07/26/25 21:00 08/25/25 20:59 Sodium Bicarbonate 150 meq/Sodium Chloride 1,150 ml @ 0 mls/hr Q0M IVP 07/21/25 14:00 07/26/25 09:31 DC Spironolactone (Aldactone 25mg) 25 mg BID PO 07/25/25 21:00 07/26/25 09:01 DC 07/26/25 08:56 25 MG Thiamine HCl (Vitamin B-1) 100 mg DAILY IVP 07/22/25 21:00 08/21/25 20:59 07/26/25 08:55 100 MG Thiamine HCl 100 mg/Sodium Chloride 50 ml @ 100 mls/hr Q24H IM 07/21/25 15:30 07/21/25 16:25 DC Vancomycin HCl (Vancomycin 1g/ 250ml Kit) 1 gm ONCE STAT IV 07/20/25 21:23 07/20/25 21:26 DC 07/20/25 22:06 1 GM Vasopressin 20 units/Sodium Chloride 100 ml @ 0 mls/hr PROTOCOL IV 07/21/25 00:30 08/20/25 00:29 07/21/25 00:10 9 MLS/HR LABORATORY: [ ] Hematology Labs: Test 08/04/25 03:40 Range/Units White Blood Count 5.7 4.8-10.8 K/uL Red Blood Count 2.71 L 4.00-5.50 MIL/uL Hemoglobin 8.0 L 12.0-16.0 g/dL Hematocrit 25.6 L 36-48 % Mean Corpuscular Volume 94.5 79-99 fL Mean Corpuscular Hemoglobin 29.5 27.0-33.0 pg Mean Corpuscular Hemoglobin Concent 31.3 L 32.0-36.0 g/dL Red Cell Distribution Width 17.7 H 11.0-15.5 % Platelet Count 180 130-400 K/uL Mean Platelet Volume 9.4 7.5-10.5 fL Nucleated Red Blood Cells 0.0 0.0-0.19 % Chemistry Labs: Test 08/04/25 11:05 08/04/25 03:40 08/03/25 04:30 Range/Units Whole Blood Glucose 145 H 70-110 MG/DL Sodium Level 136 136-145 mmol/L Potassium Level 4.3 3.5-5.1 mmol/L Chloride Level 104 101-111 mmol/L Carbon Dioxide Level 24 21-32 mmol/L Blood Urea Nitrogen 9 7-18 mg/dL Creatinine 0.5 0.5-1.0 mg/dL Glomerular Filtration Rate Calc 109 >90 mL/min Random Glucose 138 H 70-105 mg/dL Total Calcium 8.3 L 8.5-10.1 mg/dL C-Reactive Protein, Quantitative 72.10 H 0.5-3.0 mg/L Magnesium Level 1.80 1.80-2.40 mg/dL Total Bilirubin 0.6 0.2-1.0 mg/dL Aspartate Amino Transf (AST/SGOT) 16 10-37 U/L Alanine Aminotransferase (ALT/SGPT) 9 L 12-78 U/L Alkaline Phosphatase 67 50-136 U/L Total Protein 5.8 L 6.0-8.3 g/dL Albumin 2.4 L 3.5-5.0 g/dL DIAGNOSTICS / RADIOLOGY: [facility] [address] [place] [address] IMAGING REPORT Signed PATIENT: DALLAS BUCHANAN MR#: [id number] : 1970 SEX: F AGE: 55 LOCATION: 4AH ORDER 1524 STATUS: ADM IN REPORT#: [id number] SERVICE 1523 REASON: cholecystitis ORDERING PHYSICIAN: BENEDICTO OBRIEN Jr. PROCEDURE: HIDA PHARM - NM HIDA/HEPATOBILI W/ PHARMACO EXAM: HIDA scan. INDICATION: Severe RUQ Pain to rule out cholecystitis. REFERENCE EXAMINATION: [facility] July 29, 2025. TECHNIQUE: Sequential images of the abdomen were obtained in the anterior projection after IV administration of 6.0 mCi of Tc99m Mebrofenin. FINDINGS: Tracer activity throughout the liver is homogeneous without focal defects. There is prompt excretion of the pharmaceutical into the bile ducts and into the small bowel, without evidence of obstruction. There is no visualization of the gallbladder at the conclusion of the examination. IMPRESSION: Scintigraphic findings are compatible with acute cholecystitis. /[place] DICTATED BY: ELDON MILLER Jr., MD DATE: 08/01/25 101 ELECTRONICALLY SIGNED BY: ELDON MILLER Jr., MD DATE: 08/01/25 1011 PATIENT: DALLAS BUCHANAN MR#: [id number] : 1970 SEX: F AGE: 55 LOCATION: 4AH ORDER 10 STATUS: ADM IN REPORT#: [id number] SERVICE 09 REASON: ABD PAIN ORDERING PHYSICIAN: NIKKI MUNOZ NP PROCEDURE: ABD 1VW - ABD 1VW EXAM: CR Abdomen, 1 view. CLINICAL HISTORY: Pain. COMPARISON: None provided. FINDINGS: Dilated small bowel loops are seen in mid abdomen. There is a density in the pelvis which may represent a send drainage catheter. No free air is evident. No abnormal calcification. No aggressive appearing osseous lesion. IMPRESSION: Dilated small bowel loops are seen in mid abdomen. Density in the pelvis which may represent a send drainage catheter. /[place] DICTATED BY: TOBI LEAHY MD DATE: 07/29/25 1033 ELECTRONICALLY SIGNED BY: TOBI LEAHY MD DATE: 07/29/25 103 PATIENT: DALLAS BUCHANAN MR#: [id number] : 1970 SEX: F AGE: 55 LOCATION: 4AH ORDER 18 STATUS: ADM IN REPORT#: [id number] SERVICE 15 REASON: Liver cirrhosis ORDERING PHYSICIAN: LISET DOUGLAS MD PROCEDURE: ABDOMEN - US ABDOMINAL COMPLETE EXAM: US Abdomen complete CLINICAL HISTORY: Liver cirrhosis TECHNIQUE: Real-time ultrasound of the abdomen (complete) with image documentation. COMPARISON: None provided. FINDINGS: LIVER: Liver measures 12.3 cm with a heterogeneous coarse echotexture. GALLBLADDER: Gallbladder contains stones and sludge. Gallbladder is distended. COMMON BILE DUCT: No dilation. PANCREAS: Pancreas not well-visualized due to overlying bowel gas KIDNEYS: Normal renal contours. No renal mass or calculus. No hydronephrosis. SPLEEN: Normal in size and echogenicity. No mass identified. AORTA: No aneurysm. IVC: Unremarkable as visualized. MISCELLANEOUS: Small amount of abdominal ascites. IMPRESSION: 1. Cirrhotic-appearing liver. 2. Cholelithiasis and biliary sludge with gallbladder distension. 3. Small volume ascites. /[place] DICTATED BY: CYNTHIA JULIAN MD DATE: 07/29/25 105 ELECTRONICALLY SIGNED BY: CYNTHIA JULIAN MD DATE: 07/29/25 105 PATIENT: DALLAS BUCHANAN MR#: [id number] : 1970 SEX: F AGE: 55 LOCATION: 2BH ORDER 1108 STATUS: ADM IN REPORT#: [id number] SERVICE 1106 REASON: sob ORDERING PHYSICIAN: PREET BOSTON MD PROCEDURE: CXR1VW - CHEST 1VW CHEST 1VW REASON: sob COMPARISON: Study from 07/21/2025 is available. FINDINGS: Single view of the chest was obtained. Lungs are clear. Heart size is normal. There is no pulmonary vascular congestion. There is a right-sided PIC catheter with tip in superior vena cava. There is a nasogastric tube with the tip in the fundus of the stomach. Mediastinum and bony thorax appear unremarkable. IMPRESSION: 1. No acute cardiopulmonary process 2. The support lines are in satisfactory position.. DICTATED BY: GREER FIORE MD DATE: 07/22/251349 ELECTRONICALLY SIGNED BY: GREER FIORE MD DATE: 07/22/251353 PATIENT: DALLAS BUCHANAN MR#: [id number] : 1970 SEX: F AGE: 55 LOCATION: 2BH ORDER 0100 STATUS: ADM IN REPORT#: [id number] SERVICE 0100 REASON: PICC LINE ORDERING PHYSICIAN: HEATHER LEACH APRN PROCEDURE: CXR1VW - CHEST 1VW EXAM: CR Chest, single view. CLINICAL HISTORY: PICC line COMPARISON: Prior same day chest radiograph. FINDINGS: Right-sided PICC catheter with tip in the cavoatrial junction. Subsegmental atelectasis in the right lower lobe. No evidence of pleural effusion or pneumothorax. The cardiomediastinal silhouette is within normal limits. No acute osseous abnormality. IMPRESSION: Right-sided PICC catheter with tip in the cavoatrial junction. Subsegmental atelectasis in the right lower lobe. No evidence of pleural effusion or pneumothorax. Compared to the prior study, there is interval placement of the right-sided PICC line and interval resolution of the subsegmental atelectasis in the left lower lobe. /[place] DICTATED BY: ELDON MILLER Jr., MD DATE: 07/21/25816 ELECTRONICALLY SIGNED BY: ELDON MILLER Jr., MD DATE: 07/21/25816 PATIENT: DALLAS BUCHANAN MR#: [id number] : 1970 SEX: F AGE: 55 LOCATION: EDH ORDER 14 STATUS: REG [facility] REPORT#: [id number] SERVICE 12 REASON: CHEST PAIN/COUGH ORDERING PHYSICIAN: ALHAJI SHINE NP PROCEDURE: CXR1VW - CHEST 1VW EXAM: XR Chest, 1 View. CLINICAL HISTORY: 55 year old female with chest pain and cough. COMPARISON: None provided. FINDINGS: LUNGS: The lungs demonstrate evidence of atelectasis. PLEURAL SPACES: A small right pleural effusion is present. HEART: The heart size is normal. BONES: No acute osseous abnormality. IMPRESSION: 1. Small right pleural effusion and right lung base atelectasis. /[place] DICTATED BY: EDWIGE LEDESMA MD DATE: 07/20/252046 ELECTRONICALLY SIGNED BY: EDWIGE LEDESMA MD DATE: 07/20/252046 PATIENT: DALLAS BUCHANAN MR#: [id number] : 1970 SEX: F AGE: 55 LOCATION: EDH ORDER 14 STATUS: REG ER REPORT#: [id number] SERVICE 12 REASON: Abdominal Pain ORDERING PHYSICIAN: ALHAJI SHINE NP PROCEDURE: ABD PEL W - CT ABDOMEN/PELVIS W/CONTRAST ADDENDUM REPORT ADDENDUM: Results were shared by telephone at 23:23 pm on 07-20-2025 and acknowledged by Pt nurse Ms. SHIN BOYKIN. /[place] EXAM: CT Abdomen and Pelvis with Intravenous Contrast CLINICAL HISTORY: 55-year-old female with abdominal pain. TECHNIQUE: Axial computed tomography images of the abdomen and pelvis with intravenous contrast. Dose reduction technique was used including one or more of the following: automated exposure control, adjustment of mA and kV according to patient size, and/or iterative reconstruction. CONTRAST: Omnipaque 350, 75 mL COMPARISON: None provided. FINDINGS: LUNG BASES: Atelectasis and scarring at the lung bases. LIVER: Unremarkable. GALLBLADDER AND BILE DUCTS: Tiny gallstone seen. PANCREAS: Unremarkable. SPLEEN: Unremarkable. ADRENAL GLANDS: Unremarkable. KIDNEYS, URETERS, AND BLADDER: Dueñas catheter seen in the bladder lumen. No hydronephrosis or nephrolithiasis. No ureteral calculi. STOMACH AND BOWEL: Edema or loops of small bowel suggesting moderate small bowel enteritis. Free air in the upper abdomen is seen, suggesting perforated bowel. No obstruction. APPENDIX: No CT evidence for appendicitis. PERITONEUM: Moderate ascites in the abdomen and pelvis. No free air under the diaphragm. LYMPH NODES: No lymphadenopathy. REPRODUCTIVE: Unremarkable as visualized. VASCULATURE: No aortic aneurysm. ABDOMINAL WALL AND SOFT TISSUES: There is air in the subcutaneous soft tissue seen anteriorly, suggesting recent postsurgical changes; please correlate with surgical history. BONES: No fracture or suspicious osseous abnormality. IMPRESSION: 1. Moderate small bowel enteritis with free air in the upper abdomen, suggesting perforated bowel versus post surgical changes. No obstruction. 2. Moderate ascites in the abdomen and pelvis. 3. Air in the subcutaneous soft tissue anteriorly, suggesting recent postsurgical changes; please correlate with surgical history. /[place] DICTATED BY: EDWIGE LEDESMA MD DATE: 07/20/25 2337 ELECTRONICALLY SIGNED BY: DATE: EXAM: CT Abdomen and Pelvis with Intravenous Contrast CLINICAL HISTORY: 55-year-old female with abdominal pain. TECHNIQUE: Axial computed tomography images of the abdomen and pelvis with intravenous contrast. Dose reduction technique was used including one or more of the following: automated exposure control, adjustment of mA and kV according to patient size, and/or iterative reconstruction. CONTRAST: Omnipaque 350, 75 mL COMPARISON: None provided. FINDINGS: LUNG BASES: Atelectasis and scarring at the lung bases. LIVER: Unremarkable. GALLBLADDER AND BILE DUCTS: Tiny gallstone seen. PANCREAS: Unremarkable. SPLEEN: Unremarkable. ADRENAL GLANDS: Unremarkable. KIDNEYS, URETERS, AND BLADDER: Dueñas catheter seen in the bladder lumen. No hydronephrosis or nephrolithiasis. No ureteral calculi. STOMACH AND BOWEL: Edema or loops of small bowel suggesting moderate small bowel enteritis. Free air in the upper abdomen is seen, suggesting perforated bowel. No obstruction. APPENDIX: No CT evidence for appendicitis. PERITONEUM: Moderate ascites in the abdomen and pelvis. No free air under the diaphragm. LYMPH NODES: No lymphadenopathy. REPRODUCTIVE: Unremarkable as visualized. VASCULATURE: No aortic aneurysm. ABDOMINAL WALL AND SOFT TISSUES: There is air in the subcutaneous soft tissue seen anteriorly, suggesting recent postsurgical changes; please correlate with surgical history. BONES: No fracture or suspicious osseous abnormality. IMPRESSION: 1. Moderate small bowel enteritis with free air in the upper abdomen, suggesting perforated bowel versus post surgical changes. No obstruction. 2. Moderate ascites in the abdomen and pelvis. 3. Air in the subcutaneous soft tissue anteriorly, suggesting recent postsurgical changes; please correlate with surgical history. /[place] DICTATED BY: EDWIGE LEDESMA MD DATE: 07/20/252317 ELECTRONICALLY SIGNED BY: EDWIGE LEDESMA MD DATE: 07/20/252317 ASSESSMENT: Acute kidney injury Bacterial peritonitis Cholelithiasis 2 mm perforation of the colonic anastomosis Anastomosis leak Bilious peritonitis S/p Diagnostic laparoscopy, abdominal washout, drain placement and diverting loop ileostomy creation Atrophic vaginitis Anemia Diabetes Mellitus Type 2 Septic Shock Cirrhosis of liver Oesophageal Varices PLAN: Labs, diagnostic, radiologic exams reviewed and interpreted by myself and supervising physician. We have reviewed external records in detail Pending EGD and CT scan of the abdomen and pelvis Require close monitoring of renal function and electrolytes Order CBC, CMP, and electrolytes in am Continue with antibiotics BiPAP as necessary, for respiratory distress Monitor blood pressure adjust medication doses as needed Avoid hypotensive episodes May use Dilaudid 0.5 mg IV every 6 hours as needed for severe pain Monitor blood sugars Strict intake, output, and daily weight should be monitored Please renally adjust medications Avoid nephrotoxic and nonsteroidal drugs Avoid contrast if possible Will continue to monitor renal function, anemia, electrolytes Treatment plan discussed with patient Questions were answered We have discussed with the other team physicians in detail about the care plan We will continue to monitor the patient closely ATTESTATION BY PHYSICIAN I have seen and examined the patient. I reviewed the documentation, medical decision making, and treatment plan as noted by the mid-level provider above. I agree with the findings and plan of care. CIELO PORTILLO MD, [facility] Aug 04, 2025 14:19
[2025-08-04] MEDS ORDERED: IOHEXOL-350 75 ML VIAL IV ONE (14:27)
--- NOTE | 2025-08-04 15:38 | HMCIMG ---
EXAM: CT Abdomen and Pelvis with IV contrast CLINICAL HISTORY: epigastric pain. not tolerating meals. TECHNIQUE: Axial computed tomography images of the abdomen and pelvis with intravenous contrast. CONTRAST: with intravenous contrast. COMPARISON: Compared with the previous CT dated 07/20 and [facility] dated 07/29 FINDINGS: LUNG BASES: Grossly stable atelectasis and scarring at the lung bases. LIVER: Unremarkable. GALLBLADDER AND BILE DUCTS: The gallbladder is decompressed with a cholecystostomy tube in situ. PANCREAS: Unremarkable. SPLEEN: The spleen is enlarged in size, measuring 15.2 cm. ADRENAL GLANDS: Unremarkable. KIDNEYS, URETERS, AND BLADDER: No hydronephrosis or nephrolithiasis. No ureteral calculi. The urinary bladder is unremarkable. STOMACH AND BOWEL: The ileostomy site appears unremarkable. Interval resolution of previously seen moderate small bowel enteritis. No obstruction. APPENDIX: No CT evidence for appendicitis. PERITONEUM: Near complete interval resolution of previously seen moderate ascites in the abdomen and pelvis. Collection in the perisplenic and infra-splenic region measuring 6.0 x 6.1 x 8.9 cm. Interval resolution of previously seen pneumoperitoneum. Diffuse mesenteric fat stranding, likely postoperative changes. LYMPH NODES: No lymphadenopathy. REPRODUCTIVE: Unremarkable as visualized. VASCULATURE: No aortic aneurysm. ABDOMINAL WALL AND SOFT TISSUES: Interval resolution of previously seen subcutaneous emphysema in the anterior abdominal wall and left lateral chest wall. Abdominal drain in situ with tip in the pelvis. BONES: No fracture or suspicious osseous abnormality. IMPRESSION: 1. Perisplenic and infrasplenic fluid collection measuring 6.0 x 6.1 x 8.9 cm. 2. Splenomegaly, with spleen measuring 15.2 cm. 3. Cholecystostomy tube in situ with decompressed gallbladder. 4. Abdominal drain in situ with tip in the pelvis. 5. No acute findings in the remainder of the abdomen and pelvis. /[place]
--- NOTE | 2025-08-04 18:01 | PN ---
[facility] PROGRESS NOTE Date of Service: Aug 04, 2025 Time of Service: 17:46 SUBJECTIVE: Ms. Gray is a 55-year-old female that was seen and examined today on 07/20/2025. Patient reports that she came to the emergency department with a chief complaint of abdominal pain. Onset was 07/09/2025. Location is all four quadrants. Duration is constant. Character is described as pressure and " like I have a lot of gas trapped. " there was no alleviating factors. There was no aggravating factors. Patient reports associated abdominal swelling. 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 After the discharge she was taking pain medications and her condition started worsening after few days. She is in constant follow up with Dr Gann. Today in the emergency department WBCs 21.2, left shift neutrophils 85.5%, BUN 26, creatinine 3.1, GFR 17, lactic acid 8.0, no urinalysis has been collected or sent to lab, CT of abdomen and pelvis showed of free air in the abdomen which could be a suspected bowel perforation versus postsurgical changes, moderate ascites, fissure post surgical changes. Chest x-ray shows right pleural effusion. Additionally patient had a heart rate of 125, respirations 26, together with leukocytosis and lactic acidosis patient met clinical sepsis criteria additionally patient's blood pressure dropped to 85/50 mmHg requiring vasopressor support therefore meeting criteria for septic shock. Patient will be admitted to the intensive care unit. Emergency room physician spoke with patient's surgeon, Dr. Gann who requested patient be admitted under hospitalist service and she will follow this case along. 07/21/25 Patient was evaluated at the bedside. She was accompanied by her daughter. She is oriented to the time, place and person. She complained of abdominal pain in all the quadrants. She hasn't had bowel movement since Saturday and also is unable to pass flatus at this time. She has guarding, rigidity and tenderness all over the abdomen, showing the signs of peritonitis. She was seen by Dr Gann this alba and is planned to be taken to OR this afternoon. Dueñas catheter is in place, as she wasn't able to pass the urine. There is no fever, chills and any other signs of infection. 07/22/25 Patient was evaluated at the bedside. She was accompanied by her daughter. She is oriented to the time, place and person. She underwent Diagnostic laparoscopy, abdominal washout, drain placement and diverting loop ileostomy creation, The procedure revealed Bilious peritonitis, 2 mm perforation of the colonic anastomosis. She is hemodynamically stable with Blood pressure of 110/73 and HR of 83. Currently she complains of abdominal pain which is getting better than yesterday, its 3-4/10 intensity. There is no rigidity. She is anxious about the outcomes and had discussion regarding her current clinical status and lab parameters. There is no fever, chills and any other signs of infection. 07/23/25 Patient was evaluated at the bedside. She was accompanied by her daughter. She is oriented to the time, place and person. She status post diagnostic laparoscopy, abdominal washout, drain placement and diverting loop ileostomy creation. Currently she complains of abdominal pain which is 5/10 intensity. She also complaints of mild lower back pain There is no fever, chills and any other signs of infection. She has CHRIS drain in-situ with clear fluid along with colostomy bag. She is currently tolerating clear liquid diet. 07/24/2025 Patient is seen and examined at the bedside. Vitals blood pressure ranging in 100s/50s, pulse rate 50s, SpO2 greater than 95% on room air. She mentions about experiencing pressure-like discomfort on the right side of the abdomen and pain when she tries to eat. No acute events last night. She denies fever, chills, nausea, vomiting, chest pain. CHRIS output approximately 100cc/hr, serosanguineous fluid. Ileostomy bag in place. She is tolerating clear liquid diet without any nausea/vomiting. Labs hemoglobin 9.8, BUN 38, creatinine improved from 1.6-1.1. 07/25/2025 Patient is seen and examined at the bedside. She complains of abdominal pain which is 7/10 in intensity. No acute events last night. She denies fever, chills, nausea, vomiting, chest pain. CHRIS output approximately 100cc/hr, serosanguineous fluid. Ileostomy bag in place. The patient has been started on spironolactone 25mg BID and Lasix 20 mg once daily. There is high output from CHRIS but it is clear serous, most likely related to her ascites from her history of liver cirrhosis. She is tolerating clear liquid diet without any nausea/vomiting. 07/26/2025 Patient is seen and examined at the bedside. She complains of abdominal pain which remains constant. No acute events last night. She denies fever, chills, nausea, vomiting, chest pain. Patient is status post with a CHRIS drain. The drain has been collecting the serosanguineous fluid secondary to ascites. She has been tolerating liquid diet and her diet has been advanced to soft diet. She still has bloating for which probiotics and fibers has been recommended. Hemoglobin has gradually trended down to 9.2 and was given IV Venofer. Patient to get up and ambulate and work with physical therapy. 07/27/2025 Patient is seen and examined at the bedside. She complains of abdominal pain which is 6/10 in intensity. No acute events last night. She denies fever, chills, nausea, vomiting, chest pain. Patient is unable to tolerate the soft diet, hence she is currently receiving the liquid diets. The CHRIS drain output is still high and there was small amount of drainage observed in the right ileostomy. 07/28/2025 Patient is seen and examined at the bedside. She complains of abdominal pain which is 9/10 in intensity. No acute events last night. She denies fever, chills, nausea, vomiting, chest pain. Patient reported pain after eating but no nausea or vomiting. WBC is gradually trending up from 8.3-7.3-11.1-11.8. She had lidocaine patch placed this morning. She was started on simethicone 80 mg yesterday. Pertinent she is currently receiving Dilaudid 0.5 mg. Abdominal ultrasound has been ordered for further assessment. 07/29/2025 Patient is seen and examined at the bedside. She continues to complain of severe abdominal pain, rated 9/10 in intensity, unchanged from prior. She is currently receiving Dilaudid 0.5 mg for pain. She reports discomfort related to Dueñas catheterization. She denies fever, chest pain, nausea or vomiting at this time. No acute events were reported overnight. Blood pressure noted today is noted to be 98/54 mm Hg which is slightly low. Per surgery team, stoma is likely to be removed today. Hemoglobin has trended down from 9.7 g/dl to 9.0 g/dl. 07/30/2025 Patient is seen and examined at the bedside. She continues to complain of severe abdominal pain. Her abdominal distention has slightly improved. Dueñas's catheter was removed due to persistent discomfort. We will continue with scheduled removal of the ascites fluid and from CHRIS bulb. Ultrasound of abdomen was concerning for cholelithiasis with biliary sludge and gallbladder distention. HIDA scan was performed today. If consistent with cholecystitis patient will need cholecystostomy tube placement. 07/31/2025 Patient is seen and examined at the bedside. She was accompanied by her daughter. She continues to complain of severe abdominal pain. She is currently on Dilaudid 0.5mg Q4H PRN, which relieves the symptoms for 2-3 hours, after that she develops same level of pain and discomfort again. Currently awaiting the HIDA scan results. Her sodium level is 133 and albumin level is trending downwards from 2.3 to 2.1. Her Iron panel results showed: Iron 20L, TIBC 147L and %sat 16.3L. For her continuos pain she is started on Fentanyl 25mcg. CHRIS drain culture has beens sent. Based on the results of HIDA scan, CT chest will be planned. 08/01/2025: Patient is seen and examined this morning at bedside. She was accompanied by her daughter. The patient complains of severe abdominal pain. She is currently being managed with Lincoln, and Dilaudid for breakthrough pain. HIDA scan results are back, and show acute cholecystitis. Surgery has been made aware of the results. IR has been consulted for cholecystostomy tube placement. The patient will be started on PPN, as recommended by general surgery. The patient follows with Dr. Sol outpatient for her liver cirrhosis. The patients daughter would like her fortune cookie maker Dr. Sol to be involved in the patients care, and be updated with her status. 08/02/2025: Patient is seen and evaluated in the room 432. She was accompanied by her daughter. She complains of severe abdominal pain. She also complained of bleeding through her vagina, pink tinged urine. Her vitals are in the normal range. Her labs are in the normal range except for Hb is 8.6, Na is 135, K is 5.2, BUN is 4, Glucose is 150, CRP is 103.90. She went for placement of cholecystectomy tube by IR. We did a pelvic exam and ordered a vaginal estrogen cream and urinalysis. Also for her hyperkalemia we checked the potassium again and its 4.1. So we will repeat the labs tomorrow. We ordered a dose of albumin for her. 08/03/2025: Patient is seen and evaluated in the room 432. She has mild abdominal pain today. Her pain improved after the placement for cholecystotomy tube. Her vitals are in the normal range. Her labs are normal except for hemoglobin 8.2, glucose 156, CRP 89.8. Her aerobic and anaerobic culture of drain showed no growth. Gastroenterology saw the patient and they recommended 25 grams of 25% IV albumin q12H for 3 days. Her bleeding through the vagina decreased. The drainage through the left abdomen is 100ml, right abdomen is 20ml, left anterior abdomen 5ml. 08/04/2025: Patient is seen and evaluated in the room 432. She has abdominal pain today. Her vitals are in the normal range. Her labs are normal except for Hb is 8, CRP is 72.10, glucose is 130. Aerobic and anaerobic drain culture showed no growth. She is not able to tolerate her food. The drainage through the left abdomen is 100ml, right abdomen is 20ml, left anterior abdomen 5ml. Gastroenterology is planning to do EGD tomorrow. Surgery wanted to do a CT abdomen and pelvis with IV contrast. CT scan showed perisplenic and infrasplenic fluid collection measuring 6.0 x 6.1 x 8.9 cm, splenomegaly, with spleen measuring 15.2 cm, cholecystostomy tube in situ with decompressed gallbladder, abdominal drain in situ with tip in the pelvis. We ordered T.bilirubin and we will monitor the output from colostomy tube. We are also planning to add metoclopramide. REVIEW OF SYSTEMS CONSTITUTIONAL: No fever, chills, or night sweats. NEUROLOGICAL: Denies headache, sensory and motor deficit. CARDIOVASCULAR: Denies any exertional angina, dyspnea on exertion, palpitations. PULMONARY: Denies any shortness of breath, cough, phlegm/sputum, hemoptysis, pleuritic chest pain. GASTROINTESTINAL: Patient complains of diffuse abdominal pain. She also has bloating. Denies nausea, vomiting. GENITOURINARY: Denies frequency, urgency, nocturia, hematuria or incontinence. PHYSICAL EXAM GENERAL APPEARANCE: The patient is alert, awake and oriented and bedbound. NEUROLOGICAL: No sensory and motor deficits. CHEST: Normal chest expansion. LUNGS: Normal Vesicular breath sound. Absence of any rales, rhonchi or any wheezing. CARDIOVASCULAR: Regular. S1 and S2 normal. No appreciable rubs, murmurs or gallops. ABDOMEN: Abdomen is soft and slightly tender. CHRIS drain is placed. Ileostomy creation. Cholecystostomy tube is placed. Absence of guarding, rigidity and rebound tenderness. GENITOURINARY: No suprapubic tenderness. No costovertebral angle tenderness. Vital Signs (last 8hr) Date Time Temp Pulse Resp B/P (MAP) Pulse Ox O2 Delivery O2 Flow Rate FiO2 08/04/25 16:13 98.4 76 18 108/66 100 Room Air 08/04/25 11:33 98.4 82 16 97/64 98 Room Air LABS: Laboratory: Test 08/04/25 15:36 08/04/25 03:40 08/03/25 04:30 Range/Units Whole Blood Glucose 130 H 70-110 MG/DL White Blood Count 5.7 4.8-10.8 K/uL Red Blood Count 2.71 L 4.00-5.50 MIL/uL Hemoglobin 8.0 L 12.0-16.0 g/dL Hematocrit 25.6 L 36-48 % Mean Corpuscular Volume 94.5 79-99 fL Mean Corpuscular Hemoglobin 29.5 27.0-33.0 pg Mean Corpuscular Hemoglobin Concent 31.3 L 32.0-36.0 g/dL Red Cell Distribution Width 17.7 H 11.0-15.5 % Platelet Count 180 130-400 K/uL Mean Platelet Volume 9.4 7.5-10.5 fL Nucleated Red Blood Cells 0.0 0.0-0.19 % Sodium Level 136 136-145 mmol/L Potassium Level 4.3 3.5-5.1 mmol/L Chloride Level 104 101-111 mmol/L Carbon Dioxide Level 24 21-32 mmol/L Blood Urea Nitrogen 9 7-18 mg/dL Creatinine 0.5 0.5-1.0 mg/dL Glomerular Filtration Rate Calc 109 >90 mL/min Random Glucose 138 H 70-105 mg/dL Total Calcium 8.3 L 8.5-10.1 mg/dL C-Reactive Protein, Quantitative 72.10 H 0.5-3.0 mg/L Magnesium Level 1.80 1.80-2.40 mg/dL Total Bilirubin 0.6 0.2-1.0 mg/dL Aspartate Amino Transf (AST/SGOT) 16 10-37 U/L Alanine Aminotransferase (ALT/SGPT) 9 L 12-78 U/L Alkaline Phosphatase 67 50-136 U/L Total Protein 5.8 L 6.0-8.3 g/dL Albumin 2.4 L 3.5-5.0 g/dL Current Medications Medications (Trade) Dose Ordered Sig/Gregory Route PRN Reason Start Time Stop Time Status Last Admin Dose Admin Acetaminophen (TYLenol 500MG TAB) 500 mg Q6H6 PRN PO MILD PAIN (1-3) 07/27/25 16:30 08/26/25 16:29 Acetaminophen (TYLenol 650MG SUPPOSITORY) 650 mg Q6H PRN RC MILD PAIN (1-3) 07/21/25 00:00 07/27/25 16:22 DC Acetaminophen/ Hydrocodone Bitart (NORco 5/325MG) 1 tab Q4H PRN PO MODERATE PAIN (4-6) 07/31/25 16:30 08/05/25 16:29 08/04/25 13:37 1 TAB Albumin Human 50 ml @ 100 mls/hr Q12H IV 08/02/25 21:30 08/05/25 09:59 08/04/25 08:59 100 MLS/HR Albumin Human 50 ml @ 0 mls/hr Q12H IV 08/02/25 18:30 08/02/25 20:04 DC Albumin Human 100 ml @ 0 mls/hr ONCE IV 07/25/25 12:00 07/26/25 11:59 DC 07/25/25 13:43 100 MLS/HR Clotrimazole (Lotrimin) 1 GM BID TP 07/29/25 21:00 08/28/25 20:59 08/04/25 12:43 1 GM Cyclobenzaprine HCl (Cyclobenzaprine HCl) 5 mg TID PO 07/25/25 14:00 07/26/25 14:00 DC 07/26/25 14:19 5 MG Fentanyl (DURAgesic 25 MCG/HR PATCH) 25 mcg Q72H TD 07/31/25 14:30 07/31/25 14:44 DC Fluconazole/ Sodium Chloride (DiFLUCan 200 MG/ NS 100 ML) 200 mg Q24H IVPB 07/21/25 21:00 08/20/25 20:59 08/03/25 21:43 200 MG Furosemide (LASix 20MG TAB) 20 mg DAILY PO 07/25/25 11:00 08/02/25 11:53 DC 08/02/25 09:42 20 MG Gabapentin (NEURontin 100 mg CAP) 100 mg TID PO 07/29/25 14:00 08/02/25 09:21 DC 08/01/25 20:14 100 MG Hydromorphone HCl (DiLAUDid 0.5MG INJ) 0.5 mg Q4H PRN IVP SEVERE PAIN (7-10) 07/24/25 10:00 07/29/25 09:59 DC 07/29/25 08:22 0.5 MG Hydromorphone HCl (DiLAUDid 0.5MG INJ) 0.5 mg Q4H PRN IVP SEVERE PAIN (7-10) 07/29/25 13:30 08/03/25 13:29 DC 08/03/25 13:09 0.5 MG Hydromorphone HCl (DiLAUDid 0.5MG INJ) 0.5 mg Q4H PRN IVP SEVERE PAIN (7-10) 08/03/25 18:00 08/08/25 17:59 08/04/25 14:59 0.5 MG Insulin Human Regular (humuLIN R 100 UNIT/ML 3ML) INSULIN SLIDING SCAL... ACHS SQ 07/21/25 07:30 08/20/25 07:29 07/22/25 20:40 3 UNIT Lactated Ringer's 1,000 ml @ 75 mls/hr [id number] IV 07/21/25 00:00 07/21/25 13:17 DC 07/21/25 02:57 75 MLS/HR Lactated Ringer's 1,000 ml @ 75 mls/hr [id number] IV 07/21/25 13:30 07/24/25 11:09 DC 07/24/25 09:27 75 MLS/HR Lactobacillus Rhamnosus (Formerly [facility]) 1 each DAILY20 PO 07/26/25 20:00 08/25/25 19:59 08/03/25 21:44 1 EACH Lidocaine (Lidoderm Patch 5%) 1 patch DAILY TP 07/28/25 09:00 08/27/25 08:59 08/04/25 08:55 1 PATCH Magnesium Sulfate 50 ml @ 0 mls/hr PROTOCOL PRN IV MAGNESIUM PROTOCOL 07/21/25 07:00 08/20/25 06:59 08/01/25 06:05 25 MLS/HR Metoclopramide HCl (regLAN 10MG IV) 5 mg BID IVP 08/04/25 21:00 09/03/25 20:59 Metronidazole/ Sodium Chloride (flaGYL) 500 mg Q8H IV 07/21/25 14:00 07/21/25 13:40 DC Morphine Sulfate (morPHINE 2MG SYG) 2 mg Q4H PRN IVP SEVERE PAIN (7-10) 07/21/25 00:30 07/21/25 13:18 DC 07/21/25 04:46 2 MG Morphine Sulfate (morPHINE 4MG SYG) 4 mg Q3H PRN IV MODERATE PAIN (4-6) 07/21/25 13:30 07/26/25 16:29 DC 07/26/25 10:51 4 MG Norepinephrine 250 ml @ 0 mls/hr PROTOCOL IV 07/20/25 23:30 08/03/25 08:27 DC 07/21/25 10:56 18.45 MLS/HR Ondansetron HCl (zoFRAN 4MG INJ) 4 mg Q4H PRN IVP NAUSEA 07/21/25 13:30 08/20/25 13:29 Ondansetron HCl (zoFRAN 4MG INJ) 4 mg Q6H PRN IV NAUSEA/VOMITING 07/21/25 00:00 07/21/25 13:18 DC Pantoprazole Sodium (PROTonix 40MG INJ) 40 mg BID IV 07/26/25 21:00 08/20/25 08:59 08/04/25 08:58 40 MG Pantoprazole Sodium (PROTonix 40MG INJ) 40 mg DAILY IV 07/21/25 09:00 07/26/25 09:31 DC 07/26/25 08:55 40 MG Pharmacy Profile Note (Pharmacy Communication) 1 each ONCE MISC 07/21/25 15:30 07/21/25 15:16 DC Piperacillin Sod/ Tazobactam Sod 50 ml @ 200 mls/hr ONCE STAT IVPB 07/20/25 19:15 07/20/25 19:29 DC 07/20/25 20:32 200 MLS/HR Piperacillin Sod/ Tazobactam Sod (Zosyn 3.375gm+NS 50ml) 3.375 gm Q12H IV 07/21/25 00:00 07/31/25 00:00 DC 07/30/25 23:55 3.375 GM Piperacillin Sod/ Tazobactam Sod (Zosyn 3.375gm+NS 50ml) 3.375 gm Q8H IVPB 07/31/25 11:30 08/10/25 11:29 08/04/25 12:38 3.375 GM Potassium Chloride 100 ml @ 100 mls/hr AD PRN IV POTASSIUM PROTOCOL 07/24/25 08:30 08/23/25 08:29 07/30/25 06:23 100 MLS/HR Potassium Chloride (K-Dur/Klor-Con 20meq) 20 meq AD PRN PO POTASSIUM PROTOCOL 07/24/25 08:30 08/23/25 08:29 07/27/25 20:33 20 MEQ Potassium Chloride (KCl 10% Elixir 20meq/15ml) 20 meq AD PRN PO POTASSIUM PROTOCOL 07/24/25 08:30 08/23/25 08:29 07/31/25 08:15 20 MEQ Psyllium Hydrophilic Mucilloid (Metamucil) 1 tbs BID PO 07/26/25 21:00 08/25/25 20:59 08/03/25 21:43 1 TBS Simethicone (Mylicon) 80 mg Q6H6 PO 07/27/25 12:00 08/26/25 11:59 08/04/25 17:26 80 MG Sodium Bicarbonate 150 meq/Sodium Chloride 1,150 ml @ 0 mls/hr Q0M IVP 07/21/25 14:00 07/26/25 09:31 DC Sodium Chloride (NS 50ml) 50 ml AD IV 07/31/25 11:30 07/31/25 11:12 DC Spironolactone (Aldactone 25mg) 25 mg BID PO 07/25/25 21:00 07/26/25 09:01 DC 07/26/25 08:56 25 MG Sucralfate (Carafate) 1 gm ACHS PO 07/29/25 21:00 08/28/25 20:59 08/04/25 17:26 1 GM Thiamine HCl (Vitamin B-1) 100 mg DAILY IVP 07/22/25 21:00 08/21/25 20:59 08/04/25 08:58 100 MG Thiamine HCl 100 mg/Sodium Chloride 50 ml @ 100 mls/hr Q24H IM 07/21/25 15:30 07/21/25 16:25 DC Vancomycin HCl (Vancomycin 1g/ 250ml Kit) 1 gm ONCE STAT IV 07/20/25 21:23 07/20/25 21:26 DC 07/20/25 22:06 1 GM Vasopressin 20 units/Sodium Chloride 100 ml @ 0 mls/hr PROTOCOL IV 07/21/25 00:30 08/03/25 08:27 DC 07/21/25 00:10 9 MLS/HR DIAGNOSTICS / RADIOLOGY: [place] [address] IMAGING REPORT Signed PATIENT: DALLAS BUCHANAN MR#: [id number] : 1970 SEX: F AGE: 55 LOCATION: 4AH ORDER 36 STATUS: ADM IN REPORT#: [id number] SERVICE 35 REASON: epigastric pain. not tolerating meals. ORDERING PHYSICIAN: SUSAN GANN MD PROCEDURE: ABD PEL W - CT ABDOMEN/PELVIS W/CONTRAST EXAM: CT Abdomen and Pelvis with IV contrast CLINICAL HISTORY: epigastric pain. not tolerating meals. TECHNIQUE: Axial computed tomography images of the abdomen and pelvis with intravenous contrast. CONTRAST: with intravenous contrast. COMPARISON: Compared with the previous CT dated 07/20 and [facility] dated 07/29 FINDINGS: LUNG BASES: Grossly stable atelectasis and scarring at the lung bases. LIVER: Unremarkable. GALLBLADDER AND BILE DUCTS: The gallbladder is decompressed with a cholecystostomy tube in situ. PANCREAS: Unremarkable. SPLEEN: The spleen is enlarged in size, measuring 15.2 cm. ADRENAL GLANDS: Unremarkable. KIDNEYS, URETERS, AND BLADDER: No hydronephrosis or nephrolithiasis. No ureteral calculi. The urinary bladder is unremarkable. STOMACH AND BOWEL: The ileostomy site appears unremarkable. Interval resolution of previously seen moderate small bowel enteritis. No obstruction. APPENDIX: No CT evidence for appendicitis. PERITONEUM: Near complete interval resolution of previously seen moderate ascites in the abdomen and pelvis. Collection in the perisplenic and infra-splenic region measuring 6.0 x 6.1 x 8.9 cm. Interval resolution of previously seen pneumoperitoneum. Diffuse mesenteric fat stranding, likely postoperative changes. LYMPH NODES: No lymphadenopathy. REPRODUCTIVE: Unremarkable as visualized. VASCULATURE: No aortic aneurysm. ABDOMINAL WALL AND SOFT TISSUES: Interval resolution of previously seen subcutaneous emphysema in the anterior abdominal wall and left lateral chest wall. Abdominal drain in situ with tip in the pelvis. BONES: No fracture or suspicious osseous abnormality. IMPRESSION: 1. Perisplenic and infrasplenic fluid collection measuring 6.0 x 6.1 x 8.9 cm. 2. Splenomegaly, with spleen measuring 15.2 cm. 3. Cholecystostomy tube in situ with decompressed gallbladder. 4. Abdominal drain in situ with tip in the pelvis. 5. No acute findings in the remainder of the abdomen and pelvis. /[place] DICTATED BY: ELDON MILLER Jr., MD DATE: 08/04/251636 ELECTRONICALLY SIGNED BY: ELDON MILLER Jr., MD DATE: 08/04/251636 ASSESSMENT: Suspected Bowel Perforation POA Bacterial peritonitis Cholelithiasis Small Bowel Obstruction, Suspected Anastomotic Leak Bilious peritonitis s/p Diagnostic laparoscopy, abdominal washout, drain placement and diverting loop ileostomy creation Atrophic vaginitis hyperkalemia Iron Deficiency anemia Diabetes Mellitus Type 2 POA Acute Kidney Injury POA Septic Shock POA Cirrhosis of liver POA Esophageal Varices Recent Robotic takedown of splenic flexure mobilization, robotic takedown of colovesical fistula with sigmoid colectomy and end-to-end anastomosis surgery PLAN: Bilious peritonitis status post Diagnostic laparoscopy, abdominal washout, drain placement and diverting loop ileostomy creation -Continue close monitoring of the patient -continue physical therapy -Monitor CHRIS drain output -Continues with high output from CHRIS but it is clear serous, most likely related to her ascites from her history of liver cirrhosis -Continue Lactated Ringer's at 75 ml/hr for volume resuscitation and electrolyte replacement -continue Zosyn [day 15] and fluconazole [day 15] -Flexeril 5 mg t.i.d. has been started by the Surgery team. -Probiotics and Fibers have been added for bloating. -Protonix IV increased to twice daily. - Patient has been started on Lincoln by general surgery for abdominal pain, and is advised to take Diluadid only for breakthrough pain. -HIDA scan positive for acute cholecystitis. Surgery has been made aware. - IR did a Fluoroscopy and ultrasound-guided placement of cholecystotomy tube and cholecystogram on 08/02/2025. -Dr. Sol saw the patient and he recommended 25g of 25% albumin for 3 days. -Gastroenterology is planning to do EGD tomorrow. -Surgery wanted to do a CT abdomen and pelvis with IV contrast. CT scan showed perisplenic and infrasplenic fluid collection measuring 6.0 x 6.1 x 8.9 cm, splenomegaly, with spleen measuring 15.2 cm, cholecystostomy tube in situ with decompressed gallbladder, abdominal drain in situ with tip in the pelvis. -We ordered T.bilirubin and we will monitor the output from colostomy tube. -We are also planning to add metoclopramide. -Currently she is on PPN. Bacterial Peritonitis * Post Surgical patient with Bacterial peritonitis positive for ESBL * Culture and sensitivity shows susceptibility to Zosyn, Gentamicin and Meropenem. * Likely secondary to post-operative intraabdominal infection with risk of ongoing contamination. * Currently patient is on Zosyn (Day 15) * For her continuos pain she is started on Fentanyl 25mcg. CHRIS drain culture has beens sent. Cholelithiasis * Patient complained of upper abdominal pain * Ultrasound abdomen showed: Cirrhotic-appearing liver * Cholelithiasis and biliary sludge with gallbladder distension and Small volume ascites. * Hida scan shows acute cholecystitis. * Per Surgery: IR to be consulted for cholecystostomy tube placement. * IR did a Fluoroscopy and ultrasound-guided placement of cholecystotomy tube and cholecystogram on 08/02/2025. Small Bowel Obstruction, Suspected * Patient complaints of abdominal pain which is 9/10 on intensity * Abdominal Xray showed: Dilated small bowel loops are seen in mid abdomen * Perform Serial abdominal exams * Pain management(avoid excess opioids if ileus is suspected) * Evaluate drain, bowel status * Monitor for resolution vs progression of Ileus/obstruction. 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 - CT abdominal pelvis w/contrast done on 07/20/2025 showed Free air in the upper abdomen is seen, suggesting perforated bowel vs post surgical changes. No obstruction. -underwent Diagnostic laparoscopy, abdominal washout, drain placement and diverting loop ileostomy creation for biliary peritonitis Atrophic vaginitis * Today her bleeding is resolved * We did a pelvic examination. * Ordered a urinalysis and topical estrogen. hyperkalemia * Today his potassium is 4.3 * Will repeat her labs tomorrow. Iron Deficiency anemia * Hemoglobin has trended down from 8.2 to 8. 08/04/2025 * Iron sucrose (venofer) has been ordered. * Anemia panel has been ordered. Results showed Iron 24L, %sat 16.3 and TIBC 147L. 07/30/25 * Recommend trending Hgb and transfuse as needed to goal Hgb >7. * Plan to initiate the patient on Venofer, her last dose of Venofer was 200 mg on 07/26/2025 * Iron level is 20L, % saturation 11.9, TIBC 167L, Ferritin 129. 07/25/25 Septic Shock -resolved -Her WBC is 5.7 today. 08/04/2025 -Her WBC during the presentation was 21.2 and today its 5.7 today. 08/04/2025 -lactic acid is 1.5 on 07/31/2025 -blood and urine culture results are negative Acute Kidney Injury Resolved -Creatinine improved from 1.6-1.1-0.7-0.6-0.6-0.6-0.6-0.6-0.5-0.6-0.6-0.5-0.5. 08/04/2025 -Initial FeNA is 0.1 %, probably secondary to dehydration and NSAIDs overuse. -initial Urine sodium is < 13 and urine creatinine is 132.17. -Avoid nephrotoxic agents, eg. NSAIDS. -Weight patient daily. -Monitor intake and output. -Ordered urinalysis Cirrhosis of liver -Patient has a past history of cirrhosis of liver. - Liver functions are within normal limits. AST 20, ALT 9 and ALP 67. - Avoid NSAIDs and high dose acetaminophen. -Maintain appropriate volume of the patient. -Patient has been started on Spironolactone 25 mg b.i.d. and Lasix 20 mg once daily. 07/25/25 -Albumin is given today for the hypotension. -Patients family is requesting that Dr. Sol be involved in the patients care. Supportive measures -Maintain IV fluids, correct electrolytes -Serial abdominal exams -Customer Support Executive on avoidance of NSAIDS and other related triggers. -Monitor Vitals and perform morning labs regularly Continue GI prophylaxis with Pantop Continue DVT prophylaxis with SCDs, we will avoid heparin due to history of allergies to porcine, we will coordinate with surgery consult on initiation of other anticoagulants ATTESTATION BY PHYSICIAN I have seen and examined the patient. I reviewed the documentation, medical decision making, and treatment plan as noted by the resident provider above. I agree with the findings and plan of care. Denzel Coello IV, MD, AKSHAY MD Aug 04, 2025 18:01
[2025-08-04] MEDS: MULTITRACE-4 ADULT 10ML VIAL 3 ML, M.V.I. IV [ADULT] 10 ML in CLINIMIX-E4.25%AA/D5+LYT2... IV ONE (21:54)
--- NOTE | 2025-08-04 22:49 | PN ---
INFECTIOUS DISEASE PROGRESS NOTE Date of Service: Aug 04, 2025 SUBJECTIVE: Patient is status post cholecystostomy tube placement to the right side on 08/02/2025. Per report patient continues with abdominal pain after meals. No vomiting. Has been started on PPN and will undergo an EGD tomorrow. We will continue on Zosyn and fluconazole. PHYSICAL EXAM EYES: Anicteric. Pupils equal and reactive. HENT: No oral thrush seen, moist Oral mucosa. NECK: Supple, no JVD or thyromegaly. LUNGS: Good air entry. No rales, no rhonchi. CARDIOVASCULAR: S1, S2 regular. No murmur heard. ABDOMEN: Soft, non tender, bowel sounds present, no organomegaly. CHRIS drain. Ileostomy creation. Right cholecystostomy tube. CENTRAL NERVOUS SYSTEM: Awake, alert, oriented x 3. SKIN: No rashes, no swelling. LYMPHATICS: No peripheral lymphadenopathy. MUSCULOSKELETAL: No joint swelling, erythema or tenderness. EXTREMITIES: No cyanosis or clubbing. BACK: No deformity, no pressure ulcer. GENITOURINARY: No dysuria or hematuria. Vital Sign (Last 12 Hours) 08/04/25 08/04/25 08/04/25 08/04/25 11:33 16:13 19:53 20:14 Temp 98.4 98.4 98.4 Pulse 82 76 90 91 Resp 16 18 20 B/P (MAP) 97/64 108/66 104/42 103/75 Pulse Ox 98 100 98 O2 Delivery Room Air Room Air Room Air Intake & Output (last 24hrs) 08/03/25 08/03/25 08/04/25 15:00 23:00 07:00 Intake Total 250 ml 960.0 ml Output Total 600 ml 900 ml 400 ml Balance -350 ml -900 ml 560.0 ml LABS: Laboratory: Test 08/04/25 15:36 08/04/25 03:40 08/03/25 04:30 Range/Units Whole Blood Glucose 130 H 70-110 MG/DL White Blood Count 5.7 4.8-10.8 K/uL Red Blood Count 2.71 L 4.00-5.50 MIL/uL Hemoglobin 8.0 L 12.0-16.0 g/dL Hematocrit 25.6 L 36-48 % Mean Corpuscular Volume 94.5 79-99 fL Mean Corpuscular Hemoglobin 29.5 27.0-33.0 pg Mean Corpuscular Hemoglobin Concent 31.3 L 32.0-36.0 g/dL Red Cell Distribution Width 17.7 H 11.0-15.5 % Platelet Count 180 130-400 K/uL Mean Platelet Volume 9.4 7.5-10.5 fL Nucleated Red Blood Cells 0.0 0.0-0.19 % Sodium Level 136 136-145 mmol/L Potassium Level 4.3 3.5-5.1 mmol/L Chloride Level 104 101-111 mmol/L Carbon Dioxide Level 24 21-32 mmol/L Blood Urea Nitrogen 9 7-18 mg/dL Creatinine 0.5 0.5-1.0 mg/dL Glomerular Filtration Rate Calc 109 >90 mL/min Random Glucose 138 H 70-105 mg/dL Total Calcium 8.3 L 8.5-10.1 mg/dL C-Reactive Protein, Quantitative 72.10 H 0.5-3.0 mg/L Magnesium Level 1.80 1.80-2.40 mg/dL Total Bilirubin 0.6 0.2-1.0 mg/dL Aspartate Amino Transf (AST/SGOT) 16 10-37 U/L Alanine Aminotransferase (ALT/SGPT) 9 L 12-78 U/L Alkaline Phosphatase 67 50-136 U/L Total Protein 5.8 L 6.0-8.3 g/dL Albumin 2.4 L 3.5-5.0 g/dL ASSESSMENT: Acute cholecystitis, status post cholecystostomy tube placement. Persistent abdominal pain. Hypoxic respiratory failure requiring oxygen support, resolved. Septic shock. Generalized peritonitis with ESBL and E coli infection. Infection with multidrug resistant organism. Hypoalbuminemia. Suspected bowel perforation, s/p diagnostic laparoscopy, abdominal washout, ileostomy creation and CHRIS drain placement on 07/21/2025. Diabetes mellitus. Recent colovesical fistula repair with sigmoid colon resection and anastomosis on 07/09/2025 PLAN: Continue Zosyn. Continue fluconazole. Continue pain management. Avoid nephrotoxic medications. Continue GI prophylaxis. Continue antidiabetics. Continue physical therapy. Patient has been started on PPN. Patient is scheduled for EGD for tomorrow. This case was reviewed and discussed with my supervising physician Dr. Roger and the above assessment and plan was formulated and agreed upon. ATTESTATION BY PHYSICIAN I have seen and examined the patient. I reviewed the documentation, medical decision making, and treatment plan as noted by the mid-level provider above. I agree with the findings and plan of care. AMIE ROGER MD, [facility] Aug 04, 2025 22:49
[2025-08-05] VITALS (20 sets, daily range): BP systolic 88–122; BP diastolic 45–85; PULSE 79–99; RESP 16–20; TEMP 97.2–98.2
[2025-08-05 04:04] LABS: NUCLEATED RED BLOOD CELLS 0.0 % (0.0-0.19); PLATELET COUNT (AUTO) 170.0 K/uL (130-400); RED BLOOD CELL COUNT(AUTO) 2.75 MIL/uL (4.00-5.50); RED CELL DISTRIBUTION WIDTH 17.7 % (11.0-15.5); WHITE BLOOD COUNT (AUTO) 4.5 K/uL (4.8-10.8)
[2025-08-05 04:15] LABS: CREATININE 0.3 mg/dL (0.5-1.0); GLOMERULAR FILTR. RATE CALC 124.0 mL/min (>90); GLUCOSE,RANDOM 144.0 mg/dL (70-105); SODIUM SERUM 135.0 mmol/L (136-145); UREA NITROGEN, BLOOD 10.0 mg/dL (7-18)
[2025-08-05] MEDS ORDERED: LIDOCAINE PF 100MG/5ML (2%) SYRINGE 5ML ONE (12:54)
--- NOTE | 2025-08-05 13:45 | NUR ---
RECEIVED RECOVERY EGD COMPLETED COND STABLE
--- NOTE | 2025-08-05 15:48 | PN ---
This is a 55-year-old female status post diagnostic laparoscopy with the abdominal washout and drain placement with diverting loop ileostomy creation by Dr. Gann Interval history: This is a 55-year-old female resting in her room Patient went for endoscopy today with a what appears to be gastritis biopsies taken Patient is still complaining of what appears to be flank pain CT imaging showing perisplenic fluid collection but no other acute findings noted Cholecystostomy tube with what appears to be serous fluid not appearing to be completely bilious Patient is currently on clear liquid diet but reports discomfort now every time she eats Ostomy productive Physical exam General: Awake alert and oriented Heart: Regular rate and rhythm} Lungs: Clear to auscultation no distress Abdomen: [Soft, nontender, nondistended ostomy with good color to stoma CHRIS in place Cholecystostomy tube in place Assessment : This is a 55-year-old female status post diagnostic laparoscopy with the abdominal washout and drain placement with diverting loop ileostomy creation by Dr. Gann Plan: At this point in time we will request IR to evaluate perisplenic fluid collection for potential aspiration We will also request Radiology to evaluate location of cholecystostomy tube No immediate surgical intervention at this time continue with current pain management regimen Dr. Gann to be updated in patient's status and nursing report any further acute events Surgical case has been discussed with my supervising physician in the above plan was formulated and agreed upon We appreciate the hospitalist team for us to participate in patient's care. Greater than 45 minutes of time spent patient, reviewing chart, working on documentation Vitals/Labs Vital Signs Date Time Temp Pulse Resp B/P (MAP) Pulse Ox O2 Delivery O2 Flow Rate FiO2 08/05/25 14:37 Mask 08/05/25 14:36 10.0 08/05/25 14:36 85 16 117/45 100 08/05/25 13:46 97.9 08/05/25 08:30 21 Laboratory Tests 08/05/25 03:43 Medications Current Medications Sodium Chloride 1,000 ml @ 0 mls/hr ONCE ONCE IV; Start 07/20/25 at 18:30; Stop 07/20/25 at 18:31; Status DC Piperacillin Sod/ Tazobactam Sod 50 ml @ 200 mls/hr ONCE STAT IVPB Last administered on 07/20/25at 20:32; Start 07/20/25 at 19:15; Stop 07/20/25 at 19:29; Status DC Sodium Chloride 2,109 ml @ 703 mls/hr ONCE ONCE IV Last administered on 07/20/25at 20:28; Start 07/20/25 at 19:30; Stop 07/20/25 at 22:29; Status DC Iohexol 75 ml STK-MED ONCE IV; Start 07/20/25 at 20:31; Stop 07/20/25 at 20:31; Status DC Vancomycin HCl 1 gm ONCE STAT IV Last administered on 07/20/25at 22:06; Start 07/20/25 at 21:23; Stop 07/20/25 at 21:26; Status DC Morphine Sulfate 4 mg ONCE ONCE IVP Last administered on 07/20/25at 23:15; Start 07/20/25 at 23:30; Stop 07/20/25 at 23:31; Status DC Ondansetron HCl 4 mg ONCE ONCE IVP Last administered on 07/20/25at 23:14; Start 07/20/25 at 23:30; Stop 07/20/25 at 23:31; Status DC Norepinephrine 250 ml @ 0 mls/hr PROTOCOL IV Last administered on 07/21/25at 10:56; Start 07/20/25 at 23:30; Stop 08/03/25 at 08:27; Status DC Piperacillin Sod/ Tazobactam Sod 3.375 gm Q12H IV Last administered on 07/30/25at 23:55; Start 07/21/25 at 00:00; Stop 07/31/25 at 00:00; Status DC Acetaminophen 650 mg Q6H PRN RC; Start 07/21/25 at 00:00; Stop 07/27/25 at 16:22; Status DC Pantoprazole Sodium 40 mg DAILY IV Last administered on 07/26/25at 08:55; Start 07/21/25 at 09:00; Stop 07/26/25 at 09:31; Status DC Ondansetron HCl 4 mg Q6H PRN IV; Start 07/21/25 at 00:00; Stop 07/21/25 at 13:18; Status DC Morphine Sulfate 2 mg Q4H PRN IVP Last administered on 07/21/25at 04:46; Start 07/21/25 at 00:30; Stop 07/21/25 at 13:18; Status DC Lactated Ringer's 1,000 ml @ 75 mls/hr [id number] IV Last administered on 07/21/25at 02:57; Start 07/21/25 at 00:00; Stop 07/21/25 at 13:17; Status DC Insulin Human Regular INSULIN SLIDING SCAL... ACHS SQ Last administered on 07/22/25at 20:40; Start 07/21/25 at 07:30; Stop 08/20/25 at 07:29 Vasopressin 20 units/Sodium Chloride 100 ml @ 0 mls/hr PROTOCOL IV Last administered on 07/21/25at 00:10; Start 07/21/25 at 00:30; Stop 08/03/25 at 08:27; Status DC Vasopressin 20 units STK-MED ONCE .ROUTE; Start 07/21/25 at 00:10; Stop 07/21/25 at 00:11; Status DC Magnesium Sulfate 50 ml @ 0 mls/hr PROTOCOL PRN IV Last administered on 08/01/25at 06:05; Start 07/21/25 at 07:00; Stop 08/20/25 at 06:59 Acetaminophen 100 ml @ As Directed STK-MED ONCE .ROUTE; Start 07/21/25 at 09:42; Stop 07/21/25 at 09:42; Status DC Famotidine 20 mg STK-MED ONCE IV; Start 07/21/25 at 09:42; Stop 07/21/25 at 09:42; Status DC Albumin Human 500 ml @ As Directed STK-MED ONCE IV; Start 07/21/25 at 09:45; Stop 07/21/25 at 09:45; Status DC Phenylephrine HCl 10 mg STK-MED ONCE IV; Start 07/21/25 at 09:48; Stop 07/21/25 at 09:48; Status DC Dexamethasone Sodium Phosphate 10 mg STK-MED ONCE .ROUTE; Start 07/21/25 at 09:52; Stop 07/21/25 at 09:52; Status DC Ondansetron HCl 4 mg STK-MED ONCE .ROUTE; Start 07/21/25 at 09:52; Stop 07/21/25 at 09:52; Status DC Lidocaine HCl 100 mg STK-MED ONCE .ROUTE; Start 07/21/25 at 09:52; Stop 07/21/25 at 09:52; Status DC Succinylcholine Chloride 200 mg STK-MED ONCE .ROUTE; Start 07/21/25 at 09:53; Stop 07/21/25 at 09:53; Status DC Glycopyrrolate 1 mg STK-MED ONCE .ROUTE; Start 07/21/25 at 09:53; Stop 07/21/25 at 09:53; Status DC Fentanyl Citrate 100 mcg STK-MED ONCE .ROUTE; Start 07/21/25 at 09:54; Stop 07/21/25 at 09:54; Status DC Propofol 200 mg STK-MED ONCE IV; Start 07/21/25 at 09:54; Stop 07/21/25 at 09:54; Status DC Neostigmine Methylsulfate 10 mg STK-MED ONCE IV; Start 07/21/25 at 09:54; Stop 07/21/25 at 09:54; Status DC Rocuronium Fedscreek 50 mg STK-MED ONCE .ROUTE; Start 07/21/25 at 09:54; Stop 07/21/25 at 09:54; Status DC Ketamine HCl 50 mg STK-MED ONCE .ROUTE; Start 07/21/25 at 09:55; Stop 07/21/25 at 09:56; Status DC Epinephrine HCl 1 mg STK-MED ONCE .ROUTE; Start 07/21/25 at 10:03; Stop 07/21/25 at 10:03; Status DC Midazolam HCl 2 mg STK-MED ONCE .ROUTE; Start 07/21/25 at 10:05; Stop 07/21/25 at 10:05; Status DC Indocyanine Green 25 mg STK-MED ONCE IJ; Start 07/21/25 at 10:49; Stop 07/21/25 at 10:49; Status DC Ephedrine Sulfate 50 mg STK-MED ONCE .ROUTE; Start 07/21/25 at 11:17; Stop 07/21/25 at 11:17; Status DC Bupivacaine HCl 5 mg STK-MED ONCE .ROUTE Last administered on 07/21/25at 12:14; Start 07/21/25 at 11:49; Stop 07/21/25 at 11:49; Status DC Sodium Bicarbonate 200 ml @ As Directed STK-MED ONCE .ROUTE; Start 07/21/25 at 12:19; Stop 07/21/25 at 12:19; Status DC Fentanyl Citrate 100 mcg STK-MED ONCE .ROUTE; Start 07/21/25 at 12:23; Stop 07/21/25 at 12:23; Status DC Phytonadione 10 mg STK-MED ONCE .ROUTE; Start 07/21/25 at 13:05; Stop 07/21/25 at 13:05; Status DC Lactated Ringer's 1,000 ml @ 75 mls/hr [id number] IV Last administered on 07/24/25at 09:27; Start 07/21/25 at 13:30; Stop 07/24/25 at 11:09; Status DC Morphine Sulfate 4 mg Q3H PRN IV Last administered on 07/26/25at 10:51; Start 07/21/25 at 13:30; Stop 07/26/25 at 16:29; Status DC Ondansetron HCl 4 mg Q4H PRN IVP; Start 07/21/25 at 13:30; Stop 08/20/25 at 13:29 Fentanyl Citrate 100 mcg STK-MED ONCE .ROUTE; Start 07/21/25 at 13:26; Stop 07/21/25 at 13:26; Status DC Sodium Bicarbonate 150 meq/Sodium Chloride 1,150 ml @ 0 mls/hr Q0M IVP; Start 07/21/25 at 14:00; Stop 07/26/25 at 09:31; Status DC Sodium Bicarbonate 100 meq ONCE ONCE IV; Start 07/21/25 at 14:00; Stop 07/21/25 at 14:23; Status DC Metronidazole/ Sodium Chloride 500 mg Q8H IV; Start 07/21/25 at 14:00; Stop 07/21/25 at 13:40; Status DC Fluconazole/ Sodium Chloride 200 mg Q24H IVPB Last administered on 08/04/25at 20:46; Start 07/21/25 at 21:00; Stop 08/20/25 at 20:59 Pharmacy Profile Note 1 each ONCE MISC; Start 07/21/25 at 15:30; Stop 07/21/25 at 15:16; Status DC Thiamine HCl 100 mg/Sodium Chloride 50 ml @ 100 mls/hr Q24H IM; Start 07/21/25 at 15:30; Stop 07/21/25 at 16:25; Status DC Sodium Bicarbonate 100 meq ONCE ONCE IV Last administered on 07/21/25at 16:42; Start 07/21/25 at 16:30; Stop 07/21/25 at 16:31; Status DC Thiamine HCl 100 mg DAILY IVP Last administered on 08/05/25at 10:14; Start 07/22/25 at 21:00; Stop 08/21/25 at 20:59 Diatrizoate Meglum/ Diatrizoate Sod 30 ml STK-MED ONCE .ROUTE; Start 07/23/25 at 15:13; Stop 07/23/25 at 15:13; Status DC Potassium Chloride 100 ml @ 100 mls/hr AD PRN IV Last administered on 07/30/25at 06:23; Start 07/24/25 at 08:30; Stop 08/23/25 at 08:29 Potassium Chloride 20 meq AD PRN PO Last administered on 07/31/25at 08:15; Start 07/24/25 at 08:30; Stop 08/23/25 at 08:29 Potassium Chloride 20 meq AD PRN PO Last administered on 07/27/25at 20:33; Start 07/24/25 at 08:30; Stop 08/23/25 at 08:29 Hydromorphone HCl 0.5 mg Q4H PRN IVP Last administered on 07/29/25at 08:22; Start 07/24/25 at 10:00; Stop 07/29/25 at 09:59; Status DC Spironolactone 25 mg BID PO Last administered on 07/26/25at 08:56; Start 07/25/25 at 21:00; Stop 07/26/25 at 09:01; Status DC Albumin Human 100 ml @ 0 mls/hr ONCE ONCE IV Last administered on 07/25/25at 17:05; Start 07/25/25 at 10:30; Stop 07/25/25 at 10:31; Status DC Albumin Human 100 ml @ 0 mls/hr ONCE IV Last administered on 07/25/25at 13:43; Start 07/25/25 at 12:00; Stop 07/26/25 at 11:59; Status DC Cyclobenzaprine HCl 5 mg TID PO Last administered on 07/26/25at 14:19; Start 07/25/25 at 14:00; Stop 07/26/25 at 14:00; Status DC Furosemide 20 mg DAILY PO Last administered on 08/02/25at 09:42; Start 07/25/25 at 11:00; Stop 08/02/25 at 11:53; Status DC Pantoprazole Sodium 40 mg BID IV Last administered on 08/05/25at 10:13; Start 07/26/25 at 21:00; Stop 08/20/25 at 08:59 Psyllium Hydrophilic Mucilloid 1 tbs BID PO Last administered on 08/05/25at 10:14; Start 07/26/25 at 21:00; Stop 08/25/25 at 20:59 Lactobacillus Rhamnosus 1 each DAILY20 PO Last administered on 08/04/25at 20:44; Start 07/26/25 at 20:00; Stop 08/25/25 at 19:59 Iron Sucrose 200 mg ONCE ONCE IV Last administered on 07/26/25at 14:19; Start 07/26/25 at 14:00; Stop 07/26/25 at 14:01; Status DC Lidocaine 1 patch DAILY TP Last administered on 08/05/25at 10:14; Start 07/28/25 at 09:00; Stop 08/27/25 at 08:59 Simethicone 80 mg Q6H6 PO Last administered on 08/04/25at 17:26; Start 07/27/25 at 12:00; Stop 08/26/25 at 11:59 Acetaminophen 500 mg Q6H6 PRN PO; Start 07/27/25 at 16:30; Stop 08/26/25 at 16:29 Lidocaine 1 patch ONCE ONCE TP Last administered on 07/27/25at 19:25; Start 07/27/25 at 19:30; Stop 07/27/25 at 19:31; Status DC Albumin Human 50 ml @ 0 mls/hr AD ONCE IV Last administered on 07/28/25at 17:44; Start 07/28/25 at 15:30; Stop 07/28/25 at 15:31; Status DC Albumin Human 100 ml @ 0 mls/hr AD ONCE IV Last administered on 07/29/25at 14:26; Start 07/29/25 at 12:30; Stop 07/29/25 at 12:31; Status DC Hydromorphone HCl 0.5 mg Q4H PRN IVP Last administered on 08/03/25at 13:09; Start 07/29/25 at 13:30; Stop 08/03/25 at 13:29; Status DC Gabapentin 100 mg TID PO Last administered on 08/01/25at 20:14; Start 07/29/25 at 14:00; Stop 08/02/25 at 09:21; Status DC Clotrimazole 1 GM BID TP Last administered on 08/05/25at 10:22; Start 07/29/25 at 21:00; Stop 08/28/25 at 20:59 Sucralfate 1 gm ACHS PO Last administered on 08/04/25at 20:44; Start 07/29/25 at 21:00; Stop 08/28/25 at 20:59 Piperacillin Sod/ Tazobactam Sod 3.375 gm Q8H IVPB Last administered on 08/05/25at 11:14; Start 07/31/25 at 11:30; Stop 08/10/25 at 11:29 Sodium Chloride 50 ml AD IV; Start 07/31/25 at 11:30; Stop 07/31/25 at 11:12; Status DC Iron Sucrose 300 mg/Sodium Chloride 250 ml @ 83 mls/hr ONCE ONCE IV Last administered on 07/31/25at 13:36; Start 07/31/25 at 12:00; Stop 07/31/25 at 15:00; Status DC Fentanyl 25 mcg Q72H TD; Start 07/31/25 at 14:30; Stop 07/31/25 at 14:44; Status DC Acetaminophen/ Hydrocodone Bitart 1 tab Q4H PRN PO Last administered on 08/05/25at 14:57; Start 07/31/25 at 16:30; Stop 08/05/25 at 16:29 Chromium/Copper/ Manganese/Zinc 3 ml/Multivitamins/ Minerals 10 ml/ Amino Acids/ Electrolytes/ Dextrose 2,000 ml @ 80 mls/hr ONCE ONCE IV Last administered on 08/01/25at 20:25; Start 08/01/25 at 20:00; Stop 08/02/25 at 20:59; Status DC Albumin Human 100 ml @ 0 mls/hr AD ONCE IV Last administered on 08/02/25at 09:41; Start 08/02/25 at 09:30; Stop 08/02/25 at 09:33; Status DC Lidocaine HCl 20 ml STK-MED ONCE .ROUTE; Start 08/02/25 at 11:24; Stop 08/02/25 at 11:24; Status DC Iohexol 50 ml STK-MED ONCE IV; Start 08/02/25 at 11:24; Stop 08/02/25 at 11:25; Status DC Estrogens Conjugated 1 appl ONCE ONCE VG; Start 08/02/25 at 12:00; Stop 08/02/25 at 12:01; Status DC Fentanyl Citrate 100 mcg STK-MED ONCE .ROUTE; Start 08/02/25 at 11:53; Stop 08/02/25 at 11:53; Status DC Midazolam HCl 2 mg STK-MED ONCE .ROUTE; Start 08/02/25 at 11:54; Stop 08/02/25 at 11:54; Status DC Midazolam HCl 2 mg STK-MED ONCE .ROUTE; Start 08/02/25 at 12:15; Stop 08/02/25 at 12:16; Status DC Multivitamins/ Minerals 10 ml/ Chromium/Copper/ Manganese/Zinc 3 ml/Amino Acids/ Electrolytes/ Dextrose 2,000 ml @ 80 mls/hr ONCE ONCE IV Last administered on 08/02/25at 21:08; Start 08/02/25 at 20:00; Stop 08/03/25 at 18:39; Status DC Estrogens Conjugated 1 appl ONCE ONCE VG Last administered on 08/02/25at 18:47; Start 08/02/25 at 18:30; Stop 08/02/25 at 18:31; Status DC Albumin Human 50 ml @ 0 mls/hr Q12H IV; Start 08/02/25 at 18:30; Stop 08/02/25 at 20:04; Status DC Albumin Human 50 ml @ 100 mls/hr Q12H IV Last administered on 08/05/25at 10:12; Start 08/02/25 at 21:30; Stop 08/05/25 at 09:59; Status DC Hydromorphone HCl 0.5 mg Q4H PRN IVP Last administered on 08/05/25at 11:14; Start 08/03/25 at 18:00; Stop 08/08/25 at 17:59 Chromium/Copper/ Manganese/Zinc 3 ml/Multivitamins/ Minerals 10 ml/ Amino Acids/ Electrolytes/ Dextrose 2,000 ml @ 80 mls/hr ONCE ONCE IV Last administered on 08/03/25at 21:51; Start 08/03/25 at 20:00; Stop 08/04/25 at 12:47; Status DC Chromium/Copper/ Manganese/Zinc 3 ml/Multivitamins/ Minerals 10 ml/ Amino Acids/ Electrolytes/ Dextrose 2,000 ml @ 80 mls/hr ONCE ONCE IV Last administered on 08/04/25at 21:54; Start 08/04/25 at 21:00; Stop 08/05/25 at 21:59 Metoclopramide HCl 5 mg BID IVP Last administered on 08/05/25at 10:14; Start 08/04/25 at 21:00; Stop 09/03/25 at 20:59 Iohexol 75 ml STK-MED ONCE IV; Start 08/04/25 at 14:27; Stop 08/04/25 at 14:26; Status DC Propofol 200 mg STK-MED ONCE IV; Start 08/05/25 at 12:54; Stop 08/05/25 at 12:54; Status DC Lidocaine HCl 100 mg STK-MED ONCE .ROUTE; Start 08/05/25 at 12:54; Stop 08/05/25 at 12:55; Status DC BENEDICTO OBRIEN Jr. Aug 05, 2025 15:48
--- NOTE | 2025-08-05 17:31 | PN ---
[facility] PROGRESS NOTE Date of Service: Aug 05, 2025 Time of Service: 17:12 SUBJECTIVE: Ms. Gray is a 55-year-old female that was seen and examined today on 07/20/2025. Patient reports that she came to the emergency department with a chief complaint of abdominal pain. Onset was 07/09/2025. Location is all four quadrants. Duration is constant. Character is described as pressure and " like I have a lot of gas trapped. " there was no alleviating factors. There was no aggravating factors. Patient reports associated abdominal swelling. 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 After the discharge she was taking pain medications and her condition started worsening after few days. She is in constant follow up with Dr Gann. Today in the emergency department WBCs 21.2, left shift neutrophils 85.5%, BUN 26, creatinine 3.1, GFR 17, lactic acid 8.0, no urinalysis has been collected or sent to lab, CT of abdomen and pelvis showed of free air in the abdomen which could be a suspected bowel perforation versus postsurgical changes, moderate ascites, fissure post surgical changes. Chest x-ray shows right pleural effusion. Additionally patient had a heart rate of 125, respirations 26, together with leukocytosis and lactic acidosis patient met clinical sepsis criteria additionally patient's blood pressure dropped to 85/50 mmHg requiring vasopressor support therefore meeting criteria for septic shock. Patient will be admitted to the intensive care unit. Emergency room physician spoke with patient's surgeon, Dr. Gann who requested patient be admitted under hospitalist service and she will follow this case along. 07/21/25 Patient was evaluated at the bedside. She was accompanied by her daughter. She is oriented to the time, place and person. She complained of abdominal pain in all the quadrants. She hasn't had bowel movement since Saturday and also is unable to pass flatus at this time. She has guarding, rigidity and tenderness all over the abdomen, showing the signs of peritonitis. She was seen by Dr Gann this alba and is planned to be taken to OR this afternoon. Dueñas catheter is in place, as she wasn't able to pass the urine. There is no fever, chills and any other signs of infection. 07/22/25 Patient was evaluated at the bedside. She was accompanied by her daughter. She is oriented to the time, place and person. She underwent Diagnostic laparoscopy, abdominal washout, drain placement and diverting loop ileostomy creation, The procedure revealed Bilious peritonitis, 2 mm perforation of the colonic anastomosis. She is hemodynamically stable with Blood pressure of 110/73 and HR of 83. Currently she complains of abdominal pain which is getting better than yesterday, its 3-4/10 intensity. There is no rigidity. She is anxious about the outcomes and had discussion regarding her current clinical status and lab parameters. There is no fever, chills and any other signs of infection. 07/23/25 Patient was evaluated at the bedside. She was accompanied by her daughter. She is oriented to the time, place and person. She status post diagnostic laparoscopy, abdominal washout, drain placement and diverting loop ileostomy creation. Currently she complains of abdominal pain which is 5/10 intensity. She also complaints of mild lower back pain There is no fever, chills and any other signs of infection. She has CHRIS drain in-situ with clear fluid along with colostomy bag. She is currently tolerating clear liquid diet. 07/24/2025 Patient is seen and examined at the bedside. Vitals blood pressure ranging in 100s/50s, pulse rate 50s, SpO2 greater than 95% on room air. She mentions about experiencing pressure-like discomfort on the right side of the abdomen and pain when she tries to eat. No acute events last night. She denies fever, chills, nausea, vomiting, chest pain. CHRIS output approximately 100cc/hr, serosanguineous fluid. Ileostomy bag in place. She is tolerating clear liquid diet without any nausea/vomiting. Labs hemoglobin 9.8, BUN 38, creatinine improved from 1.6-1.1. 07/25/2025 Patient is seen and examined at the bedside. She complains of abdominal pain which is 7/10 in intensity. No acute events last night. She denies fever, chills, nausea, vomiting, chest pain. CHRIS output approximately 100cc/hr, serosanguineous fluid. Ileostomy bag in place. The patient has been started on spironolactone 25mg BID and Lasix 20 mg once daily. There is high output from CHRIS but it is clear serous, most likely related to her ascites from her history of liver cirrhosis. She is tolerating clear liquid diet without any nausea/vomiting. 07/26/2025 Patient is seen and examined at the bedside. She complains of abdominal pain which remains constant. No acute events last night. She denies fever, chills, nausea, vomiting, chest pain. Patient is status post with a CHRIS drain. The drain has been collecting the serosanguineous fluid secondary to ascites. She has been tolerating liquid diet and her diet has been advanced to soft diet. She still has bloating for which probiotics and fibers has been recommended. Hemoglobin has gradually trended down to 9.2 and was given IV Venofer. Patient to get up and ambulate and work with physical therapy. 07/27/2025 Patient is seen and examined at the bedside. She complains of abdominal pain which is 6/10 in intensity. No acute events last night. She denies fever, chills, nausea, vomiting, chest pain. Patient is unable to tolerate the soft diet, hence she is currently receiving the liquid diets. The CHRIS drain output is still high and there was small amount of drainage observed in the right ileostomy. 07/28/2025 Patient is seen and examined at the bedside. She complains of abdominal pain which is 9/10 in intensity. No acute events last night. She denies fever, chills, nausea, vomiting, chest pain. Patient reported pain after eating but no nausea or vomiting. WBC is gradually trending up from 8.3-7.3-11.1-11.8. She had lidocaine patch placed this morning. She was started on simethicone 80 mg yesterday. Pertinent she is currently receiving Dilaudid 0.5 mg. Abdominal ultrasound has been ordered for further assessment. 07/29/2025 Patient is seen and examined at the bedside. She continues to complain of severe abdominal pain, rated 9/10 in intensity, unchanged from prior. She is currently receiving Dilaudid 0.5 mg for pain. She reports discomfort related to Dueñas catheterization. She denies fever, chest pain, nausea or vomiting at this time. No acute events were reported overnight. Blood pressure noted today is noted to be 98/54 mm Hg which is slightly low. Per surgery team, stoma is likely to be removed today. Hemoglobin has trended down from 9.7 g/dl to 9.0 g/dl. 07/30/2025 Patient is seen and examined at the bedside. She continues to complain of severe abdominal pain. Her abdominal distention has slightly improved. Dueñas's catheter was removed due to persistent discomfort. We will continue with scheduled removal of the ascites fluid and from CHRIS bulb. Ultrasound of abdomen was concerning for cholelithiasis with biliary sludge and gallbladder distention. HIDA scan was performed today. If consistent with cholecystitis patient will need cholecystostomy tube placement. 07/31/2025 Patient is seen and examined at the bedside. She was accompanied by her daughter. She continues to complain of severe abdominal pain. She is currently on Dilaudid 0.5mg Q4H PRN, which relieves the symptoms for 2-3 hours, after that she develops same level of pain and discomfort again. Currently awaiting the HIDA scan results. Her sodium level is 133 and albumin level is trending downwards from 2.3 to 2.1. Her Iron panel results showed: Iron 20L, TIBC 147L and %sat 16.3L. For her continuos pain she is started on Fentanyl 25mcg. CHRIS drain culture has beens sent. Based on the results of HIDA scan, CT chest will be planned. 08/01/2025: Patient is seen and examined this morning at bedside. She was accompanied by her daughter. The patient complains of severe abdominal pain. She is currently being managed with Brewster, and Dilaudid for breakthrough pain. HIDA scan results are back, and show acute cholecystitis. Surgery has been made aware of the results. IR has been consulted for cholecystostomy tube placement. The patient will be started on PPN, as recommended by general surgery. The patient follows with Dr. Sol outpatient for her liver cirrhosis. The patients daughter would like her dietitian helper Dr. Sol to be involved in the patients care, and be updated with her status. 08/02/2025: Patient is seen and evaluated in the room 432. She was accompanied by her daughter. She complains of severe abdominal pain. She also complained of bleeding through her vagina, pink tinged urine. Her vitals are in the normal range. Her labs are in the normal range except for Hb is 8.6, Na is 135, K is 5.2, BUN is 4, Glucose is 150, CRP is 103.90. She went for placement of cholecystectomy tube by IR. We did a pelvic exam and ordered a vaginal estrogen cream and urinalysis. Also for her hyperkalemia we checked the potassium again and its 4.1. So we will repeat the labs tomorrow. We ordered a dose of albumin for her. 08/03/2025: Patient is seen and evaluated in the room 432. She has mild abdominal pain today. Her pain improved after the placement for cholecystotomy tube. Her vitals are in the normal range. Her labs are normal except for hemoglobin 8.2, glucose 156, CRP 89.8. Her aerobic and anaerobic culture of drain showed no growth. Gastroenterology saw the patient and they recommended 25 grams of 25% IV albumin q12H for 3 days. Her bleeding through the vagina decreased. The drainage through the left abdomen is 100ml, right abdomen is 20ml, left anterior abdomen 5ml. 08/04/2025: Patient is seen and evaluated in the room 432. She has abdominal pain today. Her vitals are in the normal range. Her labs are normal except for Hb is 8, CRP is 72.10, glucose is 130. Aerobic and anaerobic drain culture showed no growth. She is not able to tolerate her food. The drainage through the left abdomen is 100ml, right abdomen is 20ml, left anterior abdomen 5ml. Gastroenterology is planning to do EGD tomorrow. Surgery wanted to do a CT abdomen and pelvis with IV contrast. CT scan showed perisplenic and infrasplenic fluid collection measuring 6.0 x 6.1 x 8.9 cm, splenomegaly, with spleen measuring 15.2 cm, cholecystostomy tube in situ with decompressed gallbladder, abdominal drain in situ with tip in the pelvis. We ordered T.bilirubin and we will monitor the output from colostomy tube. We are also planning to add metoclopramide. 08/05/2025: Patient is seen and evaluated in the room 432. She has abdominal pain today. Her abdomen is tender to touch and warm. Her vital signs are in the normal range except for BP is 117/45. Her labs are normal except for Hb is 8.2, sodium is 135, creatinine is 0.3, CRP is 60.9 The drain output from left abdomen is 40ml, left anterior abdomen 0ml, right abdomen 0ml. Her saturation is 100% on 10L of O2. Her labs are in the normal range except for Hb is 8.2, HCT is 25.9, sodium is 135, glucose is 107, CRP is 60.90. She underwent endoscopy today and they did biopsy from 3 sites. GI said that they will consult radiology to check whether CHRIS drain and cholecystostomy tube are in place. General surgery will consult IR to evaluate perisplenic fluid collection for potential aspiration. REVIEW OF SYSTEMS CONSTITUTIONAL: No fever, chills, or night sweats. NEUROLOGICAL: Denies headache, sensory and motor deficit. CARDIOVASCULAR: Denies any exertional angina, dyspnea on exertion, palpitations. PULMONARY: Denies any shortness of breath, cough, phlegm/sputum, hemoptysis, pleuritic chest pain. GASTROINTESTINAL: Patient complains of diffuse abdominal pain. She also has bloating. Denies nausea, vomiting. GENITOURINARY: Denies frequency, urgency, nocturia, hematuria or incontinence. PHYSICAL EXAM GENERAL APPEARANCE: The patient is alert, awake and oriented and bedbound. NEUROLOGICAL: No sensory and motor deficits. CHEST: Normal chest expansion. LUNGS: Normal Vesicular breath sound. Absence of any rales, rhonchi or any wheezing. CARDIOVASCULAR: Regular. S1 and S2 normal. No appreciable rubs, murmurs or gallops. ABDOMEN: Abdomen is soft and slightly tender. CHRIS drain is placed. Ileostomy creation. Cholecystostomy tube is placed. Absence of guarding, rigidity and rebound tenderness. GENITOURINARY: No suprapubic tenderness. No costovertebral angle tenderness. Vital Signs (last 8hr) Date Time Temp Pulse Resp B/P (MAP) Pulse Ox O2 Delivery O2 Flow Rate FiO2 08/05/25 14:37 Mask 08/05/25 14:36 Mask 10.0 08/05/25 14:36 85 16 117/45 100 mask 08/05/25 13:46 97.9 82 17 97/55 95 Room Air 08/05/25 13:41 85 16 102/53 94 Room Air 08/05/25 13:36 87 17 99/55 95 Room Air 08/05/25 13:31 90 16 96/51 96 Room Air 08/05/25 13:26 79 17 95/52 100 Nonrebreathing Mask 08/05/25 13:21 81 16 92/51 100 Nonrebreathing Mask 08/05/25 13:16 97.5 83 16 88/49 100 Nonrebreathing Mask 08/05/25 12:00 97.2 99 18 110/63 95 Room Air LABS: Laboratory: Test 08/05/25 16:25 08/05/25 03:43 Range/Units Whole Blood Glucose 107 70-110 MG/DL White Blood Count 4.5 L 4.8-10.8 K/uL Red Blood Count 2.75 L 4.00-5.50 MIL/uL Hemoglobin 8.2 L 12.0-16.0 g/dL Hematocrit 25.9 L 36-48 % Mean Corpuscular Volume 94.2 79-99 fL Mean Corpuscular Hemoglobin 29.8 27.0-33.0 pg Mean Corpuscular Hemoglobin Concent 31.7 L 32.0-36.0 g/dL Red Cell Distribution Width 17.7 H 11.0-15.5 % Platelet Count 170 130-400 K/uL Mean Platelet Volume 9.7 7.5-10.5 fL Nucleated Red Blood Cells 0.0 0.0-0.19 % Sodium Level 135 L 136-145 mmol/L Potassium Level 4.8 3.5-5.1 mmol/L Chloride Level 105 101-111 mmol/L Carbon Dioxide Level 22 21-32 mmol/L Blood Urea Nitrogen 10 7-18 mg/dL Creatinine 0.3 L 0.5-1.0 mg/dL Glomerular Filtration Rate Calc 124 >90 mL/min Random Glucose 144 H 70-105 mg/dL Total Calcium 8.4 L 8.5-10.1 mg/dL Total Bilirubin 0.6 0.2-1.0 mg/dL Direct Bilirubin 0.1 0.0-0.3 mg/dL C-Reactive Protein, Quantitative 60.90 H 0.5-3.0 mg/L Current Medications Medications (Trade) Dose Ordered Sig/Gregory Route PRN Reason Start Time Stop Time Status Last Admin Dose Admin Acetaminophen (TYLenol 500MG TAB) 500 mg Q6H6 PRN PO MILD PAIN (1-3) 07/27/25 16:30 08/26/25 16:29 Acetaminophen (TYLenol 650MG SUPPOSITORY) 650 mg Q6H PRN RC MILD PAIN (1-3) 07/21/25 00:00 07/27/25 16:22 DC Acetaminophen/ Hydrocodone Bitart (NORco 5/325MG) 1 tab Q4H PRN PO MODERATE PAIN (4-6) 07/31/25 16:30 08/05/25 16:29 DC 08/05/25 14:57 1 TAB Albumin Human 50 ml @ 100 mls/hr Q12H IV 08/02/25 21:30 08/05/25 09:59 DC 08/05/25 10:12 100 MLS/HR Albumin Human 50 ml @ 0 mls/hr Q12H IV 08/02/25 18:30 08/02/25 20:04 DC Albumin Human 100 ml @ 0 mls/hr ONCE IV 07/25/25 12:00 07/26/25 11:59 DC 07/25/25 13:43 100 MLS/HR Clotrimazole (Lotrimin) 1 GM BID TP 07/29/25 21:00 08/28/25 20:59 08/05/25 10:22 1 GM Cyclobenzaprine HCl (Cyclobenzaprine HCl) 5 mg TID PO 07/25/25 14:00 07/26/25 14:00 DC 07/26/25 14:19 5 MG Fentanyl (DURAgesic 25 MCG/HR PATCH) 25 mcg Q72H TD 07/31/25 14:30 07/31/25 14:44 DC Fluconazole/ Sodium Chloride (DiFLUCan 200 MG/ NS 100 ML) 200 mg Q24H IVPB 07/21/25 21:00 08/20/25 20:59 08/04/25 20:46 200 MG Furosemide (LASix 20MG TAB) 20 mg DAILY PO 07/25/25 11:00 08/02/25 11:53 DC 08/02/25 09:42 20 MG Gabapentin (NEURontin 100 mg CAP) 100 mg TID PO 07/29/25 14:00 08/02/25 09:21 DC 08/01/25 20:14 100 MG Hydromorphone HCl (DiLAUDid 0.5MG INJ) 0.5 mg Q4H PRN IVP SEVERE PAIN (7-10) 07/24/25 10:00 07/29/25 09:59 DC 07/29/25 08:22 0.5 MG Hydromorphone HCl (DiLAUDid 0.5MG INJ) 0.5 mg Q4H PRN IVP SEVERE PAIN (7-10) 07/29/25 13:30 08/03/25 13:29 DC 08/03/25 13:09 0.5 MG Hydromorphone HCl (DiLAUDid 0.5MG INJ) 0.5 mg Q4H PRN IVP SEVERE PAIN (7-10) 08/03/25 18:00 08/08/25 17:59 08/05/25 11:14 0.5 MG Insulin Human Regular (humuLIN R 100 UNIT/ML 3ML) INSULIN SLIDING SCAL... ACHS SQ 07/21/25 07:30 08/20/25 07:29 07/22/25 20:40 3 UNIT Lactated Ringer's 1,000 ml @ 75 mls/hr [id number] IV 07/21/25 00:00 07/21/25 13:17 DC 07/21/25 02:57 75 MLS/HR Lactated Ringer's 1,000 ml @ 75 mls/hr [id number] IV 07/21/25 13:30 07/24/25 11:09 DC 07/24/25 09:27 75 MLS/HR Lactobacillus Rhamnosus ([facility]) 1 each DAILY20 PO 07/26/25 20:00 08/25/25 19:59 08/04/25 20:44 1 EACH Lidocaine (Lidoderm Patch 5%) 1 patch DAILY TP 07/28/25 09:00 08/27/25 08:59 08/05/25 10:14 1 PATCH Magnesium Sulfate 50 ml @ 0 mls/hr PROTOCOL PRN IV MAGNESIUM PROTOCOL 07/21/25 07:00 08/20/25 06:59 08/01/25 06:05 25 MLS/HR Metoclopramide HCl (regLAN 10MG IV) 5 mg BID IVP 08/04/25 21:00 09/03/25 20:59 08/05/25 10:14 5 MG Metronidazole/ Sodium Chloride (flaGYL) 500 mg Q8H IV 07/21/25 14:00 07/21/25 13:40 DC Morphine Sulfate (morPHINE 2MG SYG) 2 mg Q4H PRN IVP SEVERE PAIN (7-10) 07/21/25 00:30 07/21/25 13:18 DC 07/21/25 04:46 2 MG Morphine Sulfate (morPHINE 4MG SYG) 4 mg Q3H PRN IV MODERATE PAIN (4-6) 07/21/25 13:30 07/26/25 16:29 DC 07/26/25 10:51 4 MG Norepinephrine 250 ml @ 0 mls/hr PROTOCOL IV 07/20/25 23:30 08/03/25 08:27 DC 07/21/25 10:56 18.45 MLS/HR Ondansetron HCl (zoFRAN 4MG INJ) 4 mg Q4H PRN IVP NAUSEA 07/21/25 13:30 08/20/25 13:29 Ondansetron HCl (zoFRAN 4MG INJ) 4 mg Q6H PRN IV NAUSEA/VOMITING 07/21/25 00:00 07/21/25 13:18 DC Pantoprazole Sodium (PROTonix 40MG INJ) 40 mg BID IV 07/26/25 21:00 08/20/25 08:59 08/05/25 10:13 40 MG Pantoprazole Sodium (PROTonix 40MG INJ) 40 mg DAILY IV 07/21/25 09:00 07/26/25 09:31 DC 07/26/25 08:55 40 MG Pharmacy Profile Note (Pharmacy Communication) 1 each ONCE MISC 07/21/25 15:30 07/21/25 15:16 DC Piperacillin Sod/ Tazobactam Sod 50 ml @ 200 mls/hr ONCE STAT IVPB 07/20/25 19:15 07/20/25 19:29 DC 07/20/25 20:32 200 MLS/HR Piperacillin Sod/ Tazobactam Sod (Zosyn 3.375gm+NS 50ml) 3.375 gm Q12H IV 07/21/25 00:00 07/31/25 00:00 DC 07/30/25 23:55 3.375 GM Piperacillin Sod/ Tazobactam Sod (Zosyn 3.375gm+NS 50ml) 3.375 gm Q8H IVPB 07/31/25 11:30 08/10/25 11:29 08/05/25 11:14 3.375 GM Potassium Chloride 100 ml @ 100 mls/hr AD PRN IV POTASSIUM PROTOCOL 07/24/25 08:30 08/23/25 08:29 07/30/25 06:23 100 MLS/HR Potassium Chloride (K-Dur/Klor-Con 20meq) 20 meq AD PRN PO POTASSIUM PROTOCOL 07/24/25 08:30 08/23/25 08:29 07/27/25 20:33 20 MEQ Potassium Chloride (KCl 10% Elixir 20meq/15ml) 20 meq AD PRN PO POTASSIUM PROTOCOL 07/24/25 08:30 08/23/25 08:29 07/31/25 08:15 20 MEQ Psyllium Hydrophilic Mucilloid (Metamucil) 1 tbs BID PO 07/26/25 21:00 08/25/25 20:59 08/05/25 10:14 1 TBS Simethicone (Mylicon) 80 mg Q6H6 PO 07/27/25 12:00 08/26/25 11:59 08/04/25 17:26 80 MG Sodium Bicarbonate 150 meq/Sodium Chloride 1,150 ml @ 0 mls/hr Q0M IVP 07/21/25 14:00 07/26/25 09:31 DC Sodium Chloride (NS 50ml) 50 ml AD IV 07/31/25 11:30 07/31/25 11:12 DC Spironolactone (Aldactone 25mg) 25 mg BID PO 07/25/25 21:00 07/26/25 09:01 DC 07/26/25 08:56 25 MG Sucralfate (Carafate) 1 gm ACHS PO 07/29/25 21:00 08/28/25 20:59 08/04/25 20:44 1 GM Thiamine HCl (Vitamin B-1) 100 mg DAILY IVP 07/22/25 21:00 08/21/25 20:59 08/05/25 10:14 100 MG Thiamine HCl 100 mg/Sodium Chloride 50 ml @ 100 mls/hr Q24H IM 07/21/25 15:30 07/21/25 16:25 DC Vancomycin HCl (Vancomycin 1g/ 250ml Kit) 1 gm ONCE STAT IV 07/20/25 21:23 07/20/25 21:26 DC 07/20/25 22:06 1 GM Vasopressin 20 units/Sodium Chloride 100 ml @ 0 mls/hr PROTOCOL IV 07/21/25 00:30 08/03/25 08:27 DC 07/21/25 00:10 9 MLS/HR DIAGNOSTICS / RADIOLOGY: [place] [address] [address] IMAGING REPORT Signed PATIENT: DALLAS BUCHANAN MR#: [id number] : 1970 SEX: F AGE: 55 LOCATION: 4AH ORDER 36 STATUS: ADM IN REPORT#: [id number] SERVICE 35 REASON: epigastric pain. not tolerating meals. ORDERING PHYSICIAN: SUSAN GANN MD PROCEDURE: ABD PEL W - CT ABDOMEN/PELVIS W/CONTRAST EXAM: CT Abdomen and Pelvis with IV contrast CLINICAL HISTORY: epigastric pain. not tolerating meals. TECHNIQUE: Axial computed tomography images of the abdomen and pelvis with intravenous contrast. CONTRAST: with intravenous contrast. COMPARISON: Compared with the previous CT dated 07/20 and [facility] dated 07/29 FINDINGS: LUNG BASES: Grossly stable atelectasis and scarring at the lung bases. LIVER: Unremarkable. GALLBLADDER AND BILE DUCTS: The gallbladder is decompressed with a cholecystostomy tube in situ. PANCREAS: Unremarkable. SPLEEN: The spleen is enlarged in size, measuring 15.2 cm. ADRENAL GLANDS: Unremarkable. KIDNEYS, URETERS, AND BLADDER: No hydronephrosis or nephrolithiasis. No ureteral calculi. The urinary bladder is unremarkable. STOMACH AND BOWEL: The ileostomy site appears unremarkable. Interval resolution of previously seen moderate small bowel enteritis. No obstruction. APPENDIX: No CT evidence for appendicitis. PERITONEUM: Near complete interval resolution of previously seen moderate ascites in the abdomen and pelvis. Collection in the perisplenic and infra-splenic region measuring 6.0 x 6.1 x 8.9 cm. Interval resolution of previously seen pneumoperitoneum. Diffuse mesenteric fat stranding, likely postoperative changes. LYMPH NODES: No lymphadenopathy. REPRODUCTIVE: Unremarkable as visualized. VASCULATURE: No aortic aneurysm. ABDOMINAL WALL AND SOFT TISSUES: Interval resolution of previously seen subcutaneous emphysema in the anterior abdominal wall and left lateral chest wall. Abdominal drain in situ with tip in the pelvis. BONES: No fracture or suspicious osseous abnormality. IMPRESSION: 1. Perisplenic and infrasplenic fluid collection measuring 6.0 x 6.1 x 8.9 cm. 2. Splenomegaly, with spleen measuring 15.2 cm. 3. Cholecystostomy tube in situ with decompressed gallbladder. 4. Abdominal drain in situ with tip in the pelvis. 5. No acute findings in the remainder of the abdomen and pelvis. /[place] DICTATED BY: ELDON MILLER Jr., MD DATE: 08/04/251636 ELECTRONICALLY SIGNED BY: ELDON MILLER Jr., MD DATE: 08/04/251636 ASSESSMENT: Suspected Bowel Perforation POA Perisplenic and infrasplenic fluid collection with splenomegaly Hyponatremia Bacterial peritonitis Cholelithiasis Small Bowel Obstruction, Suspected Anastomotic Leak Bilious peritonitis s/p Diagnostic laparoscopy, abdominal washout, drain placement and diverting loop ileostomy creation Atrophic vaginitis hyperkalemia Iron Deficiency anemia Diabetes Mellitus Type 2 POA Acute Kidney Injury POA Septic Shock POA Cirrhosis of liver POA Esophageal Varices Recent Robotic takedown of splenic flexure mobilization, robotic takedown of colovesical fistula with sigmoid colectomy and end-to-end anastomosis surgery PLAN: Bilious peritonitis status post Diagnostic laparoscopy, abdominal washout, drain placement and diverting loop ileostomy creation -Continue close monitoring of the patient -continue physical therapy -Monitor CHRIS drain output -Continues with high output from CHRIS but it is clear serous, most likely related to her ascites from her history of liver cirrhosis -Continue Lactated Ringer's at 75 ml/hr for volume resuscitation and electrolyte replacement -continue Zosyn [day 16] and fluconazole [day 16] -Flexeril 5 mg t.i.d. has been started by the Surgery team. -Probiotics and Fibers have been added for bloating. -Protonix IV increased to twice daily. - Patient has been started on Brewster by general surgery for abdominal pain, and is advised to take Diluadid only for breakthrough pain. -HIDA scan positive for acute cholecystitis. Surgery has been made aware. - IR did a Fluoroscopy and ultrasound-guided placement of cholecystotomy tube and cholecystogram on 08/02/2025. -Dr. Sol saw the patient and he recommended 25g of 25% albumin for 3 days. -Gastroenterology is planning to do EGD and they did biopsy from 3 sites. GI said that they will consult radiology to check whether CHRIS drain and cholecyst ostomy tube are in place. -Surgery wanted to do a CT abdomen and pelvis with IV contrast. CT scan showed perisplenic and infrasplenic fluid collection measuring 6.0 x 6.1 x 8.9 cm, splenomegaly, with spleen measuring 15.2 cm, cholecystostomy tube in situ with decompressed gallbladder, abdominal drain in situ with tip in the pelvis. -GI said that they will consult radiology to check whether CHRIS drain and cholecystostomy tube are in place. -We ordered T.bilirubin and we will monitor the output from colostomy tube. -We are also planning to add metoclopramide. -Currently she is on PPN. Perisplenic and infrasplenic fluid collection with splenomegaly * CT scan showed perisplenic and infrasplenic fluid collection measuring 6.0 x 6.1 x 8.9 cm, splenomegaly, with spleen measuring 15.2 cm * General surgery will consult IR to evaluate perisplenic fluid collection for potential aspiration. Hyponatremia * Today her sodium level is 135. * Will repeat her labs tomorrow. Bacterial Peritonitis * Post Surgical patient with Bacterial peritonitis positive for ESBL * Culture and sensitivity shows susceptibility to Zosyn, Gentamicin and Meropenem. * Likely secondary to post-operative intraabdominal infection with risk of ongoing contamination. * Currently patient is on Zosyn (Day 16) * For her continuos pain she is started on Fentanyl 25mcg. CHRIS drain culture has beens sent. Cholelithiasis * Patient complained of upper abdominal pain * Ultrasound abdomen showed: Cirrhotic-appearing liver * Cholelithiasis and biliary sludge with gallbladder distension and Small volume ascites. * Hida scan shows acute cholecystitis. * Per Surgery: IR to be consulted for cholecystostomy tube placement. * IR did a Fluoroscopy and ultrasound-guided placement of cholecystotomy tube and cholecystogram on 08/02/2025. Small Bowel Obstruction, Suspected * Patient complaints of abdominal pain which is 9/10 on intensity * Abdominal Xray showed: Dilated small bowel loops are seen in mid abdomen * Perform Serial abdominal exams * Pain management(avoid excess opioids if ileus is suspected) * Evaluate drain, bowel status * Monitor for resolution vs progression of Ileus/obstruction. 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 - CT abdominal pelvis w/contrast done on 07/20/2025 showed Free air in the upper abdomen is seen, suggesting perforated bowel vs post surgical changes. No obstruction. -underwent Diagnostic laparoscopy, abdominal washout, drain placement and diverting loop ileostomy creation for biliary peritonitis Atrophic vaginitis * Today her bleeding is resolved * We did a pelvic examination. * Ordered topical estrogen. * Urinalysis showed cloudy urine, protein 30, trace occult blood, RBC is 11 to 25, WBC is 26 to 50. hyperkalemia * Today his potassium is 4.3 * Will repeat her labs tomorrow. Iron Deficiency anemia * Hemoglobin today is 8.2. * Iron sucrose (venofer) has been ordered. * Anemia panel has been ordered. Results showed Iron 24L, %sat 16.3 and TIBC 147L. 07/30/25 * Recommend trending Hgb and transfuse as needed to goal Hgb >7. * Plan to initiate the patient on Venofer, her last dose of Venofer was 200 mg on 07/26/2025 * Iron level is 20L, % saturation 11.9, TIBC 167L, Ferritin 129. 07/25/25 Septic Shock -resolved -Her WBC is 4.5 today. 08/05/2025 -Her WBC during the presentation was 21.2 -lactic acid is 1.5 on 07/31/2025 -blood and urine culture results are negative Acute Kidney Injury Resolved -Creatinine improved from 1.6-1.1-0.7-0.6-0.6-0.6-0.6-0.6-0.5-0.6-0.6-0.5-0.5-. 08/04/2025 -Initial FeNA is 0.1 %, probably secondary to dehydration and NSAIDs overuse. -initial Urine sodium is < 13 and urine creatinine is 132.17. -Avoid nephrotoxic agents, eg. NSAIDS. -Weight patient daily. -Monitor intake and output. -Ordered urinalysis Cirrhosis of liver -Patient has a past history of cirrhosis of liver. - Liver functions are within normal limits. AST 20, ALT 9 and ALP 67. - Avoid NSAIDs and high dose acetaminophen. -Maintain appropriate volume of the patient. -Patient has been started on Spironolactone 25 mg b.i.d. and Lasix 20 mg once daily. 07/25/25 -Albumin is given today for the hypotension. -Patients family is requesting that Dr. Sol be involved in the patients care. Supportive measures -Maintain IV fluids, correct electrolytes -Serial abdominal exams -Personal Care Aid on avoidance of NSAIDS and other related triggers. -Monitor Vitals and perform morning labs regularly Continue GI prophylaxis with Pantop Continue DVT prophylaxis with SCDs, we will avoid heparin due to history of allergies to porcine, we will coordinate with surgery consult on initiation of other anticoagulants ATTESTATION BY PHYSICIAN I have seen and examined the patient. I reviewed the documentation, medical decision making, and treatment plan as noted by the resident provider above. I agree with the findings and plan of care. Denzel Coello IV, MD, AKSHAY MD Aug 05, 2025 17:31
--- NOTE | 2025-08-05 17:49 | PN ---
INFECTIOUS DISEASE PROGRESS NOTE Date of Service: Aug 05, 2025 SUBJECTIVE: Patient is status post EGD today with findings of acute gastritis. Very minimal bloody drainage observe in the cholecystostomy tube bag. No episodes of nausea or vomiting reported and continues on on PPN. We will continue on Zosyn and fluconazole. PHYSICAL EXAM EYES: Anicteric. Pupils equal and reactive. HENT: No oral thrush seen, moist Oral mucosa. NECK: Supple, no JVD or thyromegaly. LUNGS: Good air entry. No rales, no rhonchi. CARDIOVASCULAR: S1, S2 regular. No murmur heard. ABDOMEN: Soft, non tender, bowel sounds present, no organomegaly. CHRIS drain. Ileostomy creation. Right cholecystostomy tube. CENTRAL NERVOUS SYSTEM: Awake, alert, oriented x 3. SKIN: No rashes, no swelling. LYMPHATICS: No peripheral lymphadenopathy. MUSCULOSKELETAL: No joint swelling, erythema or tenderness. EXTREMITIES: No cyanosis or clubbing. BACK: No deformity, no pressure ulcer. GENITOURINARY: No dysuria or hematuria. Vital Sign (Last 12 Hours) 08/05/25 08/05/25 08/05/25 08/05/25 08:00 08:30 12:00 13:16 Temp 98.1 97.2 97.5 Pulse 86 99 83 Resp 18 18 16 B/P (MAP) 104/68 110/63 88/49 Pulse Ox 98 95 100 O2 Delivery Room Air Room Air* Room Air Nonrebreathing Mask O2 Flow Rate 0 FiO2 21 08/05/25 08/05/25 08/05/25 08/05/25 13:21 13:26 13:31 13:36 Pulse 81 79 90 87 Resp 16 17 16 17 B/P (MAP) 92/51 95/52 96/51 99/55 Pulse Ox 100 100 96 95 O2 Delivery Nonrebreathing Mask Nonrebreathing Mask Room Air Room Air 08/05/25 08/05/25 08/05/25 08/05/25 13:41 13:46 13:50 14:15 Temp 97.9 98.2 Pulse 85 82 83 85 Resp 16 17 20 20 B/P (MAP) 102/53 97/55 97/61 103/68 Pulse Ox 94 95 97 96 O2 Delivery Room Air Room Air Room Air Room Air 08/05/25 08/05/25 08/05/25 08/05/25 14:36 14:36 14:37 14:45 Pulse 85 83 Resp 16 20 B/P (MAP) 117/45 114/85 Pulse Ox 100 99 O2 Delivery mask Mask Mask Room Air O2 Flow Rate 10.0 08/05/25 08/05/25 15:45 16:45 Pulse 82 86 Resp 18 18 B/P (MAP) 96/63 117/73 Pulse Ox 98 99 O2 Delivery Room Air Room Air Intake & Output (last 24hrs) 08/04/25 08/04/25 08/05/25 15:00 23:00 07:00 Intake Total 300 ml 1380 ml 1400.0 ml Output Total 600 ml 2440 ml 900 ml Balance -300 ml -1060 ml 500.0 ml LABS: Laboratory: Test 08/05/25 16:25 08/05/25 03:43 Range/Units Whole Blood Glucose 107 70-110 MG/DL White Blood Count 4.5 L 4.8-10.8 K/uL Red Blood Count 2.75 L 4.00-5.50 MIL/uL Hemoglobin 8.2 L 12.0-16.0 g/dL Hematocrit 25.9 L 36-48 % Mean Corpuscular Volume 94.2 79-99 fL Mean Corpuscular Hemoglobin 29.8 27.0-33.0 pg Mean Corpuscular Hemoglobin Concent 31.7 L 32.0-36.0 g/dL Red Cell Distribution Width 17.7 H 11.0-15.5 % Platelet Count 170 130-400 K/uL Mean Platelet Volume 9.7 7.5-10.5 fL Nucleated Red Blood Cells 0.0 0.0-0.19 % Sodium Level 135 L 136-145 mmol/L Potassium Level 4.8 3.5-5.1 mmol/L Chloride Level 105 101-111 mmol/L Carbon Dioxide Level 22 21-32 mmol/L Blood Urea Nitrogen 10 7-18 mg/dL Creatinine 0.3 L 0.5-1.0 mg/dL Glomerular Filtration Rate Calc 124 >90 mL/min Random Glucose 144 H 70-105 mg/dL Total Calcium 8.4 L 8.5-10.1 mg/dL Total Bilirubin 0.6 0.2-1.0 mg/dL Direct Bilirubin 0.1 0.0-0.3 mg/dL C-Reactive Protein, Quantitative 60.90 H 0.5-3.0 mg/L ASSESSMENT: Acute cholecystitis, status post cholecystostomy tube placement. Persistent abdominal pain, status post EGD with findings acute gastritis.. Hypoxic respiratory failure requiring oxygen support, resolved. Septic shock. Generalized peritonitis with ESBL and E coli infection. Infection with multidrug resistant organism. Hypoalbuminemia. Suspected bowel perforation, s/p diagnostic laparoscopy, abdominal washout, ileostomy creation and CHRIS drain placement on 07/21/2025. Diabetes mellitus. Recent colovesical fistula repair with sigmoid colon resection and anastomosis on 07/09/2025 PLAN: Continue Zosyn. Continue fluconazole. Continue pain management. Avoid nephrotoxic medications. Continue GI prophylaxis. Continue antidiabetics. Continue nutritional support, currently on PPN. This case was reviewed and discussed with my supervising physician Dr. Roger and the above assessment and plan was formulated and agreed upon. ATTESTATION BY PHYSICIAN I have seen and examined the patient. I reviewed the documentation, medical decision making, and treatment plan as noted by the mid-level provider above. I agree with the findings and plan of care. AMIE RGOER MD, MIRTA L [facility] Aug 05, 2025 17:49
[2025-08-06 03:59] VITALS: BP 118/66; PULSE 84; RESP 16; TEMP 98
[2025-08-06 04:27] LABS: NUCLEATED RED BLOOD CELLS 0.0 % (0.0-0.19); PLATELET COUNT (AUTO) 155.0 K/uL (130-400); RED BLOOD CELL COUNT(AUTO) 2.68 MIL/uL (4.00-5.50); RED CELL DISTRIBUTION WIDTH 17.8 % (11.0-15.5); WHITE BLOOD COUNT (AUTO) 4.3 K/uL (4.8-10.8)
[2025-08-06 04:37] LABS: CREATININE 0.6 mg/dL (0.5-1.0); GLOMERULAR FILTR. RATE CALC 105.0 mL/min (>90); GLUCOSE,RANDOM 149.0 mg/dL (70-105); SODIUM SERUM 135.0 mmol/L (136-145); UREA NITROGEN, BLOOD 9.0 mg/dL (7-18)
[2025-08-06] MEDS: M.V.I. IV [ADULT] 10 ML in CLINIMIX-E4.25%AA/D5+LYT2000ML 2,000 ML IV ONE (04:53)
[2025-08-06 08:00] VITALS: BP 121/63; PULSE 80; RESP 18; TEMP 98.9; O2SAT 96
[2025-08-06 12:00] VITALS: BP 97/63; PULSE 78; RESP 18; TEMP 98.1
--- NOTE | 2025-08-06 14:09 | PN ---
NEPHROLOGY PROGRESS NOTE Date/Time Patient Seen: Aug 06, 2025 SUBJECTIVE: This is a 55-year-old female with a past medical history of diabetes mellitus type 2, liver cirrhosis, esophageal varices. He presented to the emergency room with chief complain of abdominal pain. CT of the abdomen showed moderate small bowel enteritis with free air in the upper abdomen, suggesting perforated bowel versus post surgical changes. No obst ruction. S/p diagnostic laparoscopy, abdominal washout, drain placement and diverting loop ileostomy creation with CHRIS drain 10 Taiwanese on 07/21 S/P fluoroscopy and ultrasound-guided placement of cholecystotomy tube and cholecystogram. She was noted to have elevated BUN/creatinine We are consulted for renal failure Renal function and electrolytes are stable. She was seen in the medial floor, in no acute distress No family at the bedside REVIEW OF SYSTEMS: GENERAL: Positive for abdominal pain and nausea NEUROLOGIC: Negative for any blurry vision, blind spots, double vision, facial asymmetry, dysphagia, dysarthria, hemiparesis, hemisensory deficits, vertigo, ataxia. HEENT: Negative for any head trauma, neck trauma, neck stiffness, photophobia, phonophobia, sinusitis, rhinitis. CARDIAC: Negative for any chest pain, dyspnea on exertion, paroxysmal nocturnal dyspnea, peripheral edema. PULMONARY: Negative for any shortness of breath, wheezing, COPD, or TB exposure. GASTROINTESTINAL: Negative for any abdominal pain, nausea, vomiting, bright red blood per rectum, melena. GENITOURINARY: Negative for any dysuria, hematuria, incontinence. INTEGUMENTARY: Negative for any rashes, cuts, insect bites. RHEUMATOLOGIC: Negative for any joint pains, photosensitive rashes, history of vasculitis or kidney problems. HEMATOLOGIC: Negative for any abnormal bruising, frequent infections or bleeding. Vital Signs (last 8hr) Date Time Temp Pulse Resp B/P (MAP) Pulse Ox O2 Delivery O2 Flow Rate FiO2 08/06/25 12:00 98.1 78 18 97/63 97 Room Air 21 08/06/25 08:00 99.0 80 18 121/63 96 Room Air PHYSICAL EXAM: GENERAL: Alert and oriented x 3. No acute distress. Well-nourished. EYES: EOMI. Anicteric. HENT: Moist mucous membranes. No scleral icterus. No cervical lymphadenopathy. LUNGS: Clear to auscultation bilaterally. No accessory muscle use. CARDIOVASCULAR: Regular rate and rhythm. No murmur. No JVD. ABDOMEN: Soft, non-tender and non-distended. No palpable masses. EXTREMITIES: No edema. Non-tender SKIN: No rashes or lesions. Warm. NEUROLOGIC: No focal neurological deficits. CN II-XII grossly intact, but not individually tested. PSYCHIATRIC: Cooperative. Appropriate mood and affect. Current Medications Medications (Trade) Dose Ordered Sig/Gregory Route Start Time Stop Time Status Last Admin Dose Admin Albumin Human 100 ml @ 0 mls/hr ONCE IV 07/25/25 12:00 07/26/25 11:59 DC 07/25/25 13:43 100 MLS/HR Cyclobenzaprine HCl (Cyclobenzaprine HCl) 5 mg TID PO 07/25/25 14:00 07/26/25 14:00 DC 07/26/25 14:19 5 MG Fluconazole/ Sodium Chloride (DiFLUCan 200 MG/ NS 100 ML) 200 mg Q24H IVPB 07/21/25 21:00 08/20/25 20:59 07/25/25 20:47 200 MG Furosemide (LASix 20MG TAB) 20 mg DAILY PO 07/25/25 11:00 08/24/25 10:59 07/26/25 08:56 20 MG Insulin Human Regular (humuLIN R 100 UNIT/ML 3ML) INSULIN SLIDING SCAL... ACHS SQ 07/21/25 07:30 08/20/25 07:29 07/22/25 20:40 3 UNIT Lactated Ringer's 1,000 ml @ 75 mls/hr [id number] IV 07/21/25 00:00 07/21/25 13:17 DC 07/21/25 02:57 75 MLS/HR Lactated Ringer's 1,000 ml @ 75 mls/hr [id number] IV 07/21/25 13:30 07/24/25 11:09 DC 07/24/25 09:27 75 MLS/HR Lactobacillus Rhamnosus ([facility] [employer]) 1 each DAILY20 PO 07/26/25 20:00 08/25/25 19:59 Metronidazole/ Sodium Chloride (flaGYL) 500 mg Q8H IV 07/21/25 14:00 07/21/25 13:40 DC Norepinephrine 250 ml @ 0 mls/hr PROTOCOL IV 07/20/25 23:30 08/19/25 23:29 07/21/25 10:56 18.45 MLS/HR Pantoprazole Sodium (PROTonix 40MG INJ) 40 mg BID IV 07/26/25 21:00 08/20/25 08:59 Pantoprazole Sodium (PROTonix 40MG INJ) 40 mg DAILY IV 07/21/25 09:00 07/26/25 09:31 DC 07/26/25 08:55 40 MG Pharmacy Profile Note (Pharmacy Communication) 1 each ONCE MISC 07/21/25 15:30 07/21/25 15:16 DC Piperacillin Sod/ Tazobactam Sod 50 ml @ 200 mls/hr ONCE STAT IVPB 07/20/25 19:15 07/20/25 19:29 DC 07/20/25 20:32 200 MLS/HR Piperacillin Sod/ Tazobactam Sod (Zosyn 3.375gm+NS 50ml) 3.375 gm Q12H IV 07/21/25 00:00 07/31/25 00:00 07/26/25 12:10 3.375 GM Psyllium Hydrophilic Mucilloid (Metamucil) 1 tbs BID PO 07/26/25 21:00 08/25/25 20:59 Sodium Bicarbonate 150 meq/Sodium Chloride 1,150 ml @ 0 mls/hr Q0M IVP 07/21/25 14:00 07/26/25 09:31 DC Spironolactone (Aldactone 25mg) 25 mg BID PO 07/25/25 21:00 07/26/25 09:01 DC 07/26/25 08:56 25 MG Thiamine HCl (Vitamin B-1) 100 mg DAILY IVP 07/22/25 21:00 08/21/25 20:59 07/26/25 08:55 100 MG Thiamine HCl 100 mg/Sodium Chloride 50 ml @ 100 mls/hr Q24H IM 07/21/25 15:30 07/21/25 16:25 DC Vancomycin HCl (Vancomycin 1g/ 250ml Kit) 1 gm ONCE STAT IV 07/20/25 21:23 07/20/25 21:26 DC 07/20/25 22:06 1 GM Vasopressin 20 units/Sodium Chloride 100 ml @ 0 mls/hr PROTOCOL IV 07/21/25 00:30 08/20/25 00:29 07/21/25 00:10 9 MLS/HR LABORATORY: [ ] Hematology Labs: Test 08/06/25 04:20 Range/Units White Blood Count 4.3 L 4.8-10.8 K/uL Red Blood Count 2.68 L 4.00-5.50 MIL/uL Hemoglobin 8.1 L 12.0-16.0 g/dL Hematocrit 25.1 L 36-48 % Mean Corpuscular Volume 93.7 79-99 fL Mean Corpuscular Hemoglobin 30.2 27.0-33.0 pg Mean Corpuscular Hemoglobin Concent 32.3 32.0-36.0 g/dL Red Cell Distribution Width 17.8 H 11.0-15.5 % Platelet Count 155 130-400 K/uL Mean Platelet Volume 9.6 7.5-10.5 fL Nucleated Red Blood Cells 0.0 0.0-0.19 % Chemistry Labs: Test 08/06/25 11:01 08/06/25 04:20 08/05/25 03:43 Range/Units Whole Blood Glucose 151 H 70-110 MG/DL Sodium Level 135 L 136-145 mmol/L Potassium Level 4.2 3.5-5.1 mmol/L Chloride Level 105 101-111 mmol/L Carbon Dioxide Level 23 21-32 mmol/L Blood Urea Nitrogen 9 7-18 mg/dL Creatinine 0.6 0.5-1.0 mg/dL Glomerular Filtration Rate Calc 105 >90 mL/min Random Glucose 149 H 70-105 mg/dL Total Calcium 8.2 L 8.5-10.1 mg/dL C-Reactive Protein, Quantitative 53.60 H 0.5-3.0 mg/L Total Bilirubin 0.6 0.2-1.0 mg/dL Direct Bilirubin 0.1 0.0-0.3 mg/dL DIAGNOSTICS / RADIOLOGY: [place] [id number] [address] IMAGING REPORT Signed PATIENT: DALLAS BUCHANAN MR#: [id number] : 1970 SEX: F AGE: 55 LOCATION: [facility] ORDER 1337 STATUS: ADM IN REPORT#: [id number] SERVICE 1336 REASON: epigastric pain. not tolerating meals. ORDERING PHYSICIAN: SUSAN JHAVERI MD PROCEDURE: ABD PEL W - CT ABDOMEN/PELVIS W/CONTRAST EXAM: CT Abdomen and Pelvis with IV contrast CLINICAL HISTORY: epigastric pain. not tolerating meals. TECHNIQUE: Axial computed tomography images of the abdomen and pelvis with intravenous contrast. CONTRAST: with intravenous contrast. COMPARISON: Compared with the previous CT dated 07/20 and USG dated 07/29 FINDINGS: LUNG BASES: Grossly stable atelectasis and scarring at the lung bases. LIVER: Unremarkable. GALLBLADDER AND BILE DUCTS: The gallbladder is decompressed with a cholecystostomy tube in situ. PANCREAS: Unremarkable. SPLEEN: The spleen is enlarged in size, measuring 15.2 cm. ADRENAL GLANDS: Unremarkable. KIDNEYS, URETERS, AND BLADDER: No hydronephrosis or nephrolithiasis. No ureteral calculi. The urinary bladder is unremarkable. STOMACH AND BOWEL: The ileostomy site appears unremarkable. Interval resolution of previously seen moderate small bowel enteritis. No obstruction. APPENDIX: No CT evidence for appendicitis. PERITONEUM: Near complete interval resolution of previously seen moderate ascites in the abdomen and pelvis. Collection in the perisplenic and infra-splenic region measuring 6.0 x 6.1 x 8.9 cm. Interval resolution of previously seen pneumoperitoneum. Diffuse mesenteric fat stranding, likely postoperative changes. LYMPH NODES: No lymphadenopathy. REPRODUCTIVE: Unremarkable as visualized. VASCULATURE: No aortic aneurysm. ABDOMINAL WALL AND SOFT TISSUES: Interval resolution of previously seen subcutaneous emphysema in the anterior abdominal wall and left lateral chest wall. Abdominal drain in situ with tip in the pelvis. BONES: No fracture or suspicious osseous abnormality. IMPRESSION: 1. Perisplenic and infrasplenic fluid collection measuring 6.0 x 6.1 x 8.9 cm. 2. Splenomegaly, with spleen measuring 15.2 cm. 3. Cholecystostomy tube in situ with decompressed gallbladder. 4. Abdominal drain in situ with tip in the pelvis. 5. No acute findings in the remainder of the abdomen and pelvis. /[place] DICTATED BY: ELDON MILLER Jr., MD DATE: 08/04/25 0745 ELECTRONICALLY SIGNED BY: ELDON MILLER Jr., MD DATE: 08/04/25 1637 PATIENT: DALLAS BUCHANAN MR#: [id number] : 1970 SEX: F AGE: 55 LOCATION: [facility] ORDER 1524 STATUS: ADM IN REPORT#: [id number] SERVICE 1523 REASON: cholecystitis ORDERING PHYSICIAN: BENEDICTO OBRIEN Jr. PROCEDURE: HIDA PHARM - NM HIDA/HEPATOBILI W/ PHARMACO EXAM: HIDA scan. INDICATION: Severe RUQ Pain to rule out cholecystitis. REFERENCE EXAMINATION: USG July 29, 2025. TECHNIQUE: Sequential images of the abdomen were obtained in the anterior projection after IV administration of 6.0 mCi of Tc99m Mebrofenin. FINDINGS: Tracer activity throughout the liver is homogeneous without focal defects. There is prompt excretion of the pharmaceutical into the bile ducts and into the small bowel, without evidence of obstruction. There is no visualization of the gallbladder at the conclusion of the examination. IMPRESSION: Scintigraphic findings are compatible with acute cholecystitis. /[place] DICTATED BY: ELDON MILLER Jr., MD DATE: 08/01/25 1011 ELECTRONICALLY SIGNED BY: ELDON MILLER Jr., MD DATE: 08/01/25 1011 PATIENT: DALLAS BUCHANAN MR#: [id number] : 1970 SEX: F AGE: 55 LOCATION: [facility] ORDER 10 STATUS: ADM IN REPORT#: [id number] SERVICE 09 REASON: ABD PAIN ORDERING PHYSICIAN: NIKKI MUNOZ NP PROCEDURE: ABD 1VW - ABD 1VW EXAM: CR Abdomen, 1 view. CLINICAL HISTORY: Pain. COMPARISON: None provided. FINDINGS: Dilated small bowel loops are seen in mid abdomen. There is a density in the pelvis which may represent a send drainage catheter. No free air is evident. No abnormal calcification. No aggressive appearing osseous lesion. IMPRESSION: Dilated small bowel loops are seen in mid abdomen. Density in the pelvis which may represent a send drainage catheter. /[place] DICTATED BY: TOBI LEAHY MD DATE: 07/29/25 1033 ELECTRONICALLY SIGNED BY: TOBI LEAHY MD DATE: 07/29/25 103 PATIENT: DALLAS BUCHANAN MR#: [id number] : 1970 SEX: F AGE: 55 LOCATION: [facility] ORDER 1519 STATUS: ADM IN REPORT#: [id number] SERVICE 15 REASON: Liver cirrhosis ORDERING PHYSICIAN: LISET DOUGLAS MD PROCEDURE: ABDOMEN - US ABDOMINAL COMPLETE EXAM: US Abdomen complete CLINICAL HISTORY: Liver cirrhosis TECHNIQUE: Real-time ultrasound of the abdomen (complete) with image documentation. COMPARISON: None provided. FINDINGS: LIVER: Liver measures 12.3 cm with a heterogeneous coarse echotexture. GALLBLADDER: Gallbladder contains stones and sludge. Gallbladder is distended. COMMON BILE DUCT: No dilation. PANCREAS: Pancreas not well-visualized due to overlying bowel gas KIDNEYS: Normal renal contours. No renal mass or calculus. No hydronephrosis. SPLEEN: Normal in size and echogenicity. No mass identified. AORTA: No aneurysm. IVC: Unremarkable as visualized. MISCELLANEOUS: Small amount of abdominal ascites. IMPRESSION: 1. Cirrhotic-appearing liver. 2. Cholelithiasis and biliary sludge with gallbladder distension. 3. Small volume ascites. /[place] DICTATED BY: CYNTHIA JULIAN MD DATE: 07/29/25 105 ELECTRONICALLY SIGNED BY: CYNTHIA JULIAN MD DATE: 07/29/25 105 PATIENT: DALLAS BUCHANAN MR#: [id number] : 1970 SEX: F AGE: 55 LOCATION: [facility] ORDER 1108 STATUS: ADM IN REPORT#: [id number] SERVICE 1106 REASON: sob ORDERING PHYSICIAN: PREET BOSTON MD PROCEDURE: CXR1VW - CHEST 1VW CHEST 1VW REASON: sob COMPARISON: Study from 07/21/2025 is available. FINDINGS: Single view of the chest was obtained. Lungs are clear. Heart size is normal. There is no pulmonary vascular congestion. There is a right-sided PIC catheter with tip in superior vena cava. There is a nasogastric tube with the tip in the fundus of the stomach. Mediastinum and bony thorax appear unremarkable. IMPRESSION: 1. No acute cardiopulmonary process 2. The support lines are in satisfactory position.. DICTATED BY: GREER FIORE MD DATE: 07/22/251349 ELECTRONICALLY SIGNED BY: GREER FIORE MD DATE: 07/22/251353 PATIENT: DALLAS BUCHANAN MR#: [id number] : 1970 SEX: F AGE: 55 LOCATION: [facility] ORDER STATUS: ADM IN REPORT#: [id number] SERVICE REASON: PICC LINE ORDERING PHYSICIAN: HEATHER LEACH APRN PROCEDURE: CXR1VW - CHEST 1VW EXAM: CR Chest, single view. CLINICAL HISTORY: PICC line COMPARISON: Prior same day chest radiograph. FINDINGS: Right-sided PICC catheter with tip in the cavoatrial junction. Subsegmental atelectasis in the right lower lobe. No evidence of pleural effusion or pneumothorax. The cardiomediastinal silhouette is within normal limits. No acute osseous abnormality. IMPRESSION: Right-sided PICC catheter with tip in the cavoatrial junction. Subsegmental atelectasis in the right lower lobe. No evidence of pleural effusion or pneumothorax. Compared to the prior study, there is interval placement of the right-sided PICC line and interval resolution of the subsegmental atelectasis in the left lower lobe. /[place] DICTATED BY: ELDON MILLER Jr., MD DATE: 07/21/25816 ELECTRONICALLY SIGNED BY: ELDON MILLER Jr., MD DATE: 07/21/25816 PATIENT: DALLAS BUCHANAN MR#: [id number] : 1970 SEX: F AGE: 55 LOCATION: [facility] ORDER 14 STATUS: REG [facility] REPORT#: [id number] SERVICE 12 REASON: CHEST PAIN/COUGH ORDERING PHYSICIAN: ALHAJI SHINE NP PROCEDURE: CXR1VW - CHEST 1VW EXAM: XR Chest, 1 View. CLINICAL HISTORY: 55 year old female with chest pain and cough. COMPARISON: None provided. FINDINGS: LUNGS: The lungs demonstrate evidence of atelectasis. PLEURAL SPACES: A small right pleural effusion is present. HEART: The heart size is normal. BONES: No acute osseous abnormality. IMPRESSION: 1. Small right pleural effusion and right lung base atelectasis. /[place] DICTATED BY: EDWIGE LEDESMA MD DATE: 07/20/252046 ELECTRONICALLY SIGNED BY: EDWIGE LEDESMA MD DATE: 07/20/252046 PATIENT: DALLAS BUCHANAN MR#: [id number] : 1970 SEX: F AGE: 55 LOCATION: [facility] ORDER 14 STATUS: REG ER REPORT#: [id number] SERVICE 12 REASON: Abdominal Pain ORDERING PHYSICIAN: ALHAJI SHINE NP PROCEDURE: ABD PEL W - CT ABDOMEN/PELVIS W/CONTRAST ADDENDUM REPORT ADDENDUM: Results were shared by telephone at 23:23 pm on 07-20-2025 and acknowledged by Pt nurse Ms. SHIN BOYKIN. /[place] EXAM: CT Abdomen and Pelvis with Intravenous Contrast CLINICAL HISTORY: 55-year-old female with abdominal pain. TECHNIQUE: Axial computed tomography images of the abdomen and pelvis with intravenous contrast. Dose reduction technique was used including one or more of the following: automated exposure control, adjustment of mA and kV according to patient size, and/or iterative reconstruction. CONTRAST: Omnipaque 350, 75 mL COMPARISON: None provided. FINDINGS: LUNG BASES: Atelectasis and scarring at the lung bases. LIVER: Unremarkable. GALLBLADDER AND BILE DUCTS: Tiny gallstone seen. PANCREAS: Unremarkable. SPLEEN: Unremarkable. ADRENAL GLANDS: Unremarkable. KIDNEYS, URETERS, AND BLADDER: Dueñas catheter seen in the bladder lumen. No hydronephrosis or nephrolithiasis. No ureteral calculi. STOMACH AND BOWEL: Edema or loops of small bowel suggesting moderate small bowel enteritis. Free air in the upper abdomen is seen, suggesting perforated bowel. No obstruction. APPENDIX: No CT evidence for appendicitis. PERITONEUM: Moderate ascites in the abdomen and pelvis. No free air under the diaphragm. LYMPH NODES: No lymphadenopathy. REPRODUCTIVE: Unremarkable as visualized. VASCULATURE: No aortic aneurysm. ABDOMINAL WALL AND SOFT TISSUES: There is air in the subcutaneous soft tissue seen anteriorly, suggesting recent postsurgical changes; please correlate with surgical history. BONES: No fracture or suspicious osseous abnormality. IMPRESSION: 1. Moderate small bowel enteritis with free air in the upper abdomen, suggesting perforated bowel versus post surgical changes. No obstruction. 2. Moderate ascites in the abdomen and pelvis. 3. Air in the subcutaneous soft tissue anteriorly, suggesting recent postsurgical changes; please correlate with surgical history. /[place] DICTATED BY: EDWIGE LEDESMA MD DATE: 07/20/25 5995 ELECTRONICALLY SIGNED BY: DATE: EXAM: CT Abdomen and Pelvis with Intravenous Contrast CLINICAL HISTORY: 55-year-old female with abdominal pain. TECHNIQUE: Axial computed tomography images of the abdomen and pelvis with intravenous contrast. Dose reduction technique was used including one or more of the following: automated exposure control, adjustment of mA and kV according to patient size, and/or iterative reconstruction. CONTRAST: Omnipaque 350, 75 mL COMPARISON: None provided. FINDINGS: LUNG BASES: Atelectasis and scarring at the lung bases. LIVER: Unremarkable. GALLBLADDER AND BILE DUCTS: Tiny gallstone seen. PANCREAS: Unremarkable. SPLEEN: Unremarkable. ADRENAL GLANDS: Unremarkable. KIDNEYS, URETERS, AND BLADDER: Dueñas catheter seen in the bladder lumen. No hydronephrosis or nephrolithiasis. No ureteral calculi. STOMACH AND BOWEL: Edema or loops of small bowel suggesting moderate small bowel enteritis. Free air in the upper abdomen is seen, suggesting perforated bowel. No obstruction. APPENDIX: No CT evidence for appendicitis. PERITONEUM: Moderate ascites in the abdomen and pelvis. No free air under the diaphragm. LYMPH NODES: No lymphadenopathy. REPRODUCTIVE: Unremarkable as visualized. VASCULATURE: No aortic aneurysm. ABDOMINAL WALL AND SOFT TISSUES: There is air in the subcutaneous soft tissue seen anteriorly, suggesting recent postsurgical changes; please correlate with surgical history. BONES: No fracture or suspicious osseous abnormality. IMPRESSION: 1. Moderate small bowel enteritis with free air in the upper abdomen, suggesting perforated bowel versus post surgical changes. No obstruction. 2. Moderate ascites in the abdomen and pelvis. 3. Air in the subcutaneous soft tissue anteriorly, suggesting recent postsurgical changes; please correlate with surgical history. /[place] DICTATED BY: EDWIGE LEDESMA MD DATE: 07/20/252317 ELECTRONICALLY SIGNED BY: EDWIGE LEDESMA MD DATE: 07/20/252317 ASSESSMENT: Acute kidney injury Bacterial peritonitis Cholelithiasis 2 mm perforation of the colonic anastomosis Anastomosis leak Bilious peritonitis S/p Diagnostic laparoscopy, abdominal washout, drain placement and diverting loop ileostomy creation Atrophic vaginitis Anemia Diabetes Mellitus Type 2 Septic Shock Cirrhosis of liver Oesophageal Varices PLAN: Labs, diagnostic, radiologic exams reviewed and interpreted by myself and supervising physician. We have reviewed external records in detail Require close monitoring of renal function and electrolytes Order CBC, CMP, and electrolytes in am Continue with antibiotics BiPAP as necessary, for respiratory distress Monitor blood pressure adjust medication doses as needed Avoid hypotensive episodes May use Dilaudid 0.5 mg IV every 6 hours as needed for severe pain Monitor blood sugars Strict intake, output, and daily weight should be monitored Please renally adjust medications Avoid nephrotoxic and nonsteroidal drugs Avoid contrast if possible Will continue to monitor renal function, anemia, electrolytes Treatment plan discussed with patient Questions were answered We have discussed with the other team physicians in detail about the care plan We will continue to monitor the patient closely ATTESTATION BY PHYSICIAN I have seen and examined the patient. I reviewed the documentation, medical decision making, and treatment plan as noted by the mid-level provider above. I agree with the findings and plan of care. CIELO PORTILLO MD, [facility] Aug 06, 2025 14:09
--- NOTE | 2025-08-06 14:35 | PN ---
[facility] PROGRESS NOTE Date of Service: Aug 06, 2025 Time of Service: 14:20 SUBJECTIVE: Ms. Gray is a 55-year-old female that was seen and examined today on 07/20/2025. Patient reports that she came to the emergency department with a chief complaint of abdominal pain. Onset was 07/09/2025. Location is all four quadrants. Duration is constant. Character is described as pressure and " like I have a lot of gas trapped. " there was no alleviating factors. There was no aggravating factors. Patient reports associated abdominal swelling. 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 After the discharge she was taking pain medications and her condition started worsening after few days. She is in constant follow up with Dr Gann. Today in the emergency department WBCs 21.2, left shift neutrophils 85.5%, BUN 26, creatinine 3.1, GFR 17, lactic acid 8.0, no urinalysis has been collected or sent to lab, CT of abdomen and pelvis showed of free air in the abdomen which could be a suspected bowel perforation versus postsurgical changes, moderate ascites, fissure post surgical changes. Chest x-ray shows right pleural effusion. Additionally patient had a heart rate of 125, respirations 26, together with leukocytosis and lactic acidosis patient met clinical sepsis criteria additionally patient's blood pressure dropped to 85/50 mmHg requiring vasopressor support therefore meeting criteria for septic shock. Patient will be admitted to the intensive care unit. Emergency room physician spoke with patient's surgeon, Dr. Gann who requested patient be admitted under hospitalist service and she will follow this case along. 07/21/25 Patient was evaluated at the bedside. She was accompanied by her daughter. She is oriented to the time, place and person. She complained of abdominal pain in all the quadrants. She hasn't had bowel movement since Saturday and also is unable to pass flatus at this time. She has guarding, rigidity and tenderness all over the abdomen, showing the signs of peritonitis. She was seen by Dr Gann this alba and is planned to be taken to OR this afternoon. Dueñas catheter is in place, as she wasn't able to pass the urine. There is no fever, chills and any other signs of infection. 07/22/25 Patient was evaluated at the bedside. She was accompanied by her daughter. She is oriented to the time, place and person. She underwent Diagnostic laparoscopy, abdominal washout, drain placement and diverting loop ileostomy creation, The procedure revealed Bilious peritonitis, 2 mm perforation of the colonic anastomosis. She is hemodynamically stable with Blood pressure of 110/73 and HR of 83. Currently she complains of abdominal pain which is getting better than yesterday, its 3-4/10 intensity. There is no rigidity. She is anxious about the outcomes and had discussion regarding her current clinical status and lab parameters. There is no fever, chills and any other signs of infection. 07/23/25 Patient was evaluated at the bedside. She was accompanied by her daughter. She is oriented to the time, place and person. She status post diagnostic laparoscopy, abdominal washout, drain placement and diverting loop ileostomy creation. Currently she complains of abdominal pain which is 5/10 intensity. She also complaints of mild lower back pain There is no fever, chills and any other signs of infection. She has CHRIS drain in-situ with clear fluid along with colostomy bag. She is currently tolerating clear liquid diet. 07/24/2025 Patient is seen and examined at the bedside. Vitals blood pressure ranging in 100s/50s, pulse rate 50s, SpO2 greater than 95% on room air. She mentions about experiencing pressure-like discomfort on the right side of the abdomen and pain when she tries to eat. No acute events last night. She denies fever, chills, nausea, vomiting, chest pain. CHRIS output approximately 100cc/hr, serosanguineous fluid. Ileostomy bag in place. She is tolerating clear liquid diet without any nausea/vomiting. Labs hemoglobin 9.8, BUN 38, creatinine improved from 1.6-1.1. 07/25/2025 Patient is seen and examined at the bedside. She complains of abdominal pain which is 7/10 in intensity. No acute events last night. She denies fever, chills, nausea, vomiting, chest pain. CHRIS output approximately 100cc/hr, serosanguineous fluid. Ileostomy bag in place. The patient has been started on spironolactone 25mg BID and Lasix 20 mg once daily. There is high output from CHRIS but it is clear serous, most likely related to her ascites from her history of liver cirrhosis. She is tolerating clear liquid diet without any nausea/vomiting. 07/26/2025 Patient is seen and examined at the bedside. She complains of abdominal pain which remains constant. No acute events last night. She denies fever, chills, nausea, vomiting, chest pain. Patient is status post with a CHRIS drain. The drain has been collecting the serosanguineous fluid secondary to ascites. She has been tolerating liquid diet and her diet has been advanced to soft diet. She still has bloating for which probiotics and fibers has been recommended. Hemoglobin has gradually trended down to 9.2 and was given IV Venofer. Patient to get up and ambulate and work with physical therapy. 07/27/2025 Patient is seen and examined at the bedside. She complains of abdominal pain which is 6/10 in intensity. No acute events last night. She denies fever, chills, nausea, vomiting, chest pain. Patient is unable to tolerate the soft diet, hence she is currently receiving the liquid diets. The CHRIS drain output is still high and there was small amount of drainage observed in the right ileostomy. 07/28/2025 Patient is seen and examined at the bedside. She complains of abdominal pain which is 9/10 in intensity. No acute events last night. She denies fever, chills, nausea, vomiting, chest pain. Patient reported pain after eating but no nausea or vomiting. WBC is gradually trending up from 8.3-7.3-11.1-11.8. She had lidocaine patch placed this morning. She was started on simethicone 80 mg yesterday. Pertinent she is currently receiving Dilaudid 0.5 mg. Abdominal ultrasound has been ordered for further assessment. 07/29/2025 Patient is seen and examined at the bedside. She continues to complain of severe abdominal pain, rated 9/10 in intensity, unchanged from prior. She is currently receiving Dilaudid 0.5 mg for pain. She reports discomfort related to Dueñas catheterization. She denies fever, chest pain, nausea or vomiting at this time. No acute events were reported overnight. Blood pressure noted today is noted to be 98/54 mm Hg which is slightly low. Per surgery team, stoma is likely to be removed today. Hemoglobin has trended down from 9.7 g/dl to 9.0 g/dl. 07/30/2025 Patient is seen and examined at the bedside. She continues to complain of severe abdominal pain. Her abdominal distention has slightly improved. Dueñas's catheter was removed due to persistent discomfort. We will continue with scheduled removal of the ascites fluid and from CHRIS bulb. Ultrasound of abdomen was concerning for cholelithiasis with biliary sludge and gallbladder distention. HIDA scan was performed today. If consistent with cholecystitis patient will need cholecystostomy tube placement. 07/31/2025 Patient is seen and examined at the bedside. She was accompanied by her daughter. She continues to complain of severe abdominal pain. She is currently on Dilaudid 0.5mg Q4H PRN, which relieves the symptoms for 2-3 hours, after that she develops same level of pain and discomfort again. Currently awaiting the HIDA scan results. Her sodium level is 133 and albumin level is trending downwards from 2.3 to 2.1. Her Iron panel results showed: Iron 20L, TIBC 147L and %sat 16.3L. For her continuos pain she is started on Fentanyl 25mcg. CHRIS drain culture has beens sent. Based on the results of HIDA scan, CT chest will be planned. 08/01/2025: Patient is seen and examined this morning at bedside. She was accompanied by her daughter. The patient complains of severe abdominal pain. She is currently being managed with Parnell, and Dilaudid for breakthrough pain. HIDA scan results are back, and show acute cholecystitis. Surgery has been made aware of the results. IR has been consulted for cholecystostomy tube placement. The patient will be started on PPN, as recommended by general surgery. The patient follows with Dr. Sol outpatient for her liver cirrhosis. The patients daughter would like her sequins spooler Dr. Sol to be involved in the patients care, and be updated with her status. 08/02/2025: Patient is seen and evaluated in the room 432. She was accompanied by her daughter. She complains of severe abdominal pain. She also complained of bleeding through her vagina, pink tinged urine. Her vitals are in the normal range. Her labs are in the normal range except for Hb is 8.6, Na is 135, K is 5.2, BUN is 4, Glucose is 150, CRP is 103.90. She went for placement of cholecystectomy tube by IR. We did a pelvic exam and ordered a vaginal estrogen cream and urinalysis. Also for her hyperkalemia we checked the potassium again and its 4.1. So we will repeat the labs tomorrow. We ordered a dose of albumin for her. 08/03/2025: Patient is seen and evaluated in the room 432. She has mild abdominal pain today. Her pain improved after the placement for cholecystotomy tube. Her vitals are in the normal range. Her labs are normal except for hemoglobin 8.2, glucose 156, CRP 89.8. Her aerobic and anaerobic culture of drain showed no growth. Gastroenterology saw the patient and they recommended 25 grams of 25% IV albumin q12H for 3 days. Her bleeding through the vagina decreased. The drainage through the left abdomen is 100ml, right abdomen is 20ml, left anterior abdomen 5ml. 08/04/2025: Patient is seen and evaluated in the room 432. She has abdominal pain today. Her vitals are in the normal range. Her labs are normal except for Hb is 8, CRP is 72.10, glucose is 130. Aerobic and anaerobic drain culture showed no growth. She is not able to tolerate her food. The drainage through the left abdomen is 100ml, right abdomen is 20ml, left anterior abdomen 5ml. Gastroenterology is planning to do EGD tomorrow. Surgery wanted to do a CT abdomen and pelvis with IV contrast. CT scan showed perisplenic and infrasplenic fluid collection measuring 6.0 x 6.1 x 8.9 cm, splenomegaly, with spleen measuring 15.2 cm, cholecystostomy tube in situ with decompressed gallbladder, abdominal drain in situ with tip in the pelvis. We ordered T.bilirubin and we will monitor the output from colostomy tube. We are also planning to add metoclopramide. 08/05/2025: Patient is seen and evaluated in the room 432. She has abdominal pain today. Her abdomen is tender to touch and warm. Her vital signs are in the normal range except for BP is 117/45. Her labs are normal except for Hb is 8.2, sodium is 135, creatinine is 0.3, CRP is 60.9 The drain output from left abdomen is 40ml, left anterior abdomen 0ml, right abdomen 0ml. Her saturation is 100% on 10L of O2. Her labs are in the normal range except for Hb is 8.2, HCT is 25.9, sodium is 135, glucose is 107, CRP is 60.90. She underwent endoscopy today and they did biopsy from 3 sites. GI said that they will consult radiology to check whether CHRIS drain and cholecystostomy tube are in place. General surgery will consult IR to evaluate perisplenic fluid collection for potential aspiration. 08/06/2025: Patient is seen and evaluated in the room 432. She has abdominal pain today. Her abdomen is tender to touch and warm. Her vital signs are in the normal range except for 97/63. Her labs are in the normal range except for Hb is 8.1, sodium is 135, blood glucose is 151, CRP 53.60. We are waiting for IR consult for evaluation and for potential aspiration of perisplenic fluid. The drain output from right abdomen is 20ml. REVIEW OF SYSTEMS CONSTITUTIONAL: No fever, chills, or night sweats. NEUROLOGICAL: Denies headache, sensory and motor deficit. CARDIOVASCULAR: Denies any exertional angina, dyspnea on exertion, palpitations. PULMONARY: Denies any shortness of breath, cough, phlegm/sputum, hemoptysis, pleuritic chest pain. GASTROINTESTINAL: Patient complains of diffuse abdominal pain. She also has bloating. Denies nausea, vomiting. GENITOURINARY: Denies frequency, urgency, nocturia, hematuria or incontinence. PHYSICAL EXAM GENERAL APPEARANCE: The patient is alert, awake and oriented and bedbound. NEUROLOGICAL: No sensory and motor deficits. CHEST: Normal chest expansion. LUNGS: Normal Vesicular breath sound. Absence of any rales, rhonchi or any wheezing. CARDIOVASCULAR: Regular. S1 and S2 normal. No appreciable rubs, murmurs or gallops. ABDOMEN: Abdomen is soft and slightly tender. CHRIS drain is placed. Ileostomy creation. Cholecystostomy tube is placed. Absence of guarding, rigidity and rebound tenderness. GENITOURINARY: No suprapubic tenderness. No costovertebral angle tenderness. Vital Signs (last 8hr) Date Time Temp Pulse Resp B/P (MAP) Pulse Ox O2 Delivery O2 Flow Rate FiO2 08/06/25 12:00 98.1 78 18 97/63 97 Room Air 21 08/06/25 08:00 99.0 80 18 121/63 96 Room Air LABS: Laboratory: Test 08/06/25 11:01 08/06/25 04:20 08/05/25 03:43 Range/Units Whole Blood Glucose 151 H 70-110 MG/DL White Blood Count 4.3 L 4.8-10.8 K/uL Red Blood Count 2.68 L 4.00-5.50 MIL/uL Hemoglobin 8.1 L 12.0-16.0 g/dL Hematocrit 25.1 L 36-48 % Mean Corpuscular Volume 93.7 79-99 fL Mean Corpuscular Hemoglobin 30.2 27.0-33.0 pg Mean Corpuscular Hemoglobin Concent 32.3 32.0-36.0 g/dL Red Cell Distribution Width 17.8 H 11.0-15.5 % Platelet Count 155 130-400 K/uL Mean Platelet Volume 9.6 7.5-10.5 fL Nucleated Red Blood Cells 0.0 0.0-0.19 % Sodium Level 135 L 136-145 mmol/L Potassium Level 4.2 3.5-5.1 mmol/L Chloride Level 105 101-111 mmol/L Carbon Dioxide Level 23 21-32 mmol/L Blood Urea Nitrogen 9 7-18 mg/dL Creatinine 0.6 0.5-1.0 mg/dL Glomerular Filtration Rate Calc 105 >90 mL/min Random Glucose 149 H 70-105 mg/dL Total Calcium 8.2 L 8.5-10.1 mg/dL C-Reactive Protein, Quantitative 53.60 H 0.5-3.0 mg/L Total Bilirubin 0.6 0.2-1.0 mg/dL Direct Bilirubin 0.1 0.0-0.3 mg/dL Current Medications Medications (Trade) Dose Ordered Sig/Gregory Route PRN Reason Start Time Stop Time Status Last Admin Dose Admin Acetaminophen (TYLenol 500MG TAB) 500 mg Q6H6 PRN PO MILD PAIN (1-3) 07/27/25 16:30 08/26/25 16:29 Acetaminophen (TYLenol 650MG SUPPOSITORY) 650 mg Q6H PRN RC MILD PAIN (1-3) 07/21/25 00:00 07/27/25 16:22 DC Acetaminophen/ Hydrocodone Bitart (NORco 5/325MG) 1 tab Q4H PRN PO MODERATE PAIN (4-6) 07/31/25 16:30 08/05/25 16:29 DC 08/05/25 14:57 1 TAB Albumin Human 50 ml @ 100 mls/hr Q12H IV 08/02/25 21:30 08/05/25 09:59 DC 08/05/25 10:12 100 MLS/HR Albumin Human 50 ml @ 0 mls/hr Q12H IV 08/02/25 18:30 08/02/25 20:04 DC Albumin Human 100 ml @ 0 mls/hr ONCE IV 07/25/25 12:00 07/26/25 11:59 DC 07/25/25 13:43 100 MLS/HR Clotrimazole (Lotrimin) 1 GM BID TP 07/29/25 21:00 08/28/25 20:59 08/06/25 09:09 1 GM Cyclobenzaprine HCl (Cyclobenzaprine HCl) 5 mg TID PO 07/25/25 14:00 07/26/25 14:00 DC 07/26/25 14:19 5 MG Fentanyl (DURAgesic 25 MCG/HR PATCH) 25 mcg Q72H TD 07/31/25 14:30 07/31/25 14:44 DC Fluconazole/ Sodium Chloride (DiFLUCan 200 MG/ NS 100 ML) 200 mg Q24H IVPB 07/21/25 21:00 08/20/25 20:59 08/05/25 20:24 200 MG Furosemide (LASix 20MG TAB) 20 mg DAILY PO 07/25/25 11:00 08/02/25 11:53 DC 08/02/25 09:42 20 MG Gabapentin (NEURontin 100 mg CAP) 100 mg TID PO 07/29/25 14:00 08/02/25 09:21 DC 08/01/25 20:14 100 MG Hydromorphone HCl (DiLAUDid 0.5MG INJ) 0.5 mg Q4H PRN IVP SEVERE PAIN (7-10) 07/24/25 10:00 07/29/25 09:59 DC 07/29/25 08:22 0.5 MG Hydromorphone HCl (DiLAUDid 0.5MG INJ) 0.5 mg Q4H PRN IVP SEVERE PAIN (7-10) 07/29/25 13:30 08/03/25 13:29 DC 08/03/25 13:09 0.5 MG Hydromorphone HCl (DiLAUDid 0.5MG INJ) 0.5 mg Q4H PRN IVP SEVERE PAIN (7-10) 08/03/25 18:00 08/08/25 17:59 08/06/25 12:21 0.5 MG Insulin Human Regular (humuLIN R 100 UNIT/ML 3ML) INSULIN SLIDING SCAL... ACHS SQ 07/21/25 07:30 08/20/25 07:29 07/22/25 20:40 3 UNIT Lactated Ringer's 1,000 ml @ 75 mls/hr [id number] IV 07/21/25 00:00 07/21/25 13:17 DC 07/21/25 02:57 75 MLS/HR Lactated Ringer's 1,000 ml @ 75 mls/hr [id number] IV 07/21/25 13:30 07/24/25 11:09 DC 07/24/25 09:27 75 MLS/HR Lactobacillus Rhamnosus ([facility]'s) 1 each DAILY20 PO 07/26/25 20:00 08/25/25 19:59 08/05/25 20:29 1 EACH Lidocaine (Lidoderm Patch 5%) 1 patch DAILY TP 07/28/25 09:00 08/27/25 08:59 08/06/25 09:01 1 PATCH Magnesium Sulfate 50 ml @ 0 mls/hr PROTOCOL PRN IV MAGNESIUM PROTOCOL 07/21/25 07:00 08/20/25 06:59 08/01/25 06:05 25 MLS/HR Metoclopramide HCl (regLAN 10MG IV) 5 mg BID IVP 08/04/25 21:00 09/03/25 20:59 08/06/25 09:01 5 MG Metronidazole/ Sodium Chloride (flaGYL) 500 mg Q8H IV 07/21/25 14:00 07/21/25 13:40 DC Morphine Sulfate (morPHINE 2MG SYG) 2 mg Q4H PRN IVP SEVERE PAIN (7-10) 07/21/25 00:30 07/21/25 13:18 DC 07/21/25 04:46 2 MG Morphine Sulfate (morPHINE 4MG SYG) 4 mg Q3H PRN IV MODERATE PAIN (4-6) 07/21/25 13:30 07/26/25 16:29 DC 07/26/25 10:51 4 MG Norepinephrine 250 ml @ 0 mls/hr PROTOCOL IV 07/20/25 23:30 08/03/25 08:27 DC 07/21/25 10:56 18.45 MLS/HR Ondansetron HCl (zoFRAN 4MG INJ) 4 mg Q4H PRN IVP NAUSEA 07/21/25 13:30 08/20/25 13:29 Ondansetron HCl (zoFRAN 4MG INJ) 4 mg Q6H PRN IV NAUSEA/VOMITING 07/21/25 00:00 07/21/25 13:18 DC Pantoprazole Sodium (PROTonix 40MG INJ) 40 mg BID IV 07/26/25 21:00 08/20/25 08:59 08/06/25 09:08 40 MG Pantoprazole Sodium (PROTonix 40MG INJ) 40 mg BID IVP 08/05/25 21:00 08/06/25 08:39 DC 08/05/25 20:25 40 MG Pantoprazole Sodium (PROTonix 40MG INJ) 40 mg DAILY IV 07/21/25 09:00 07/26/25 09:31 DC 07/26/25 08:55 40 MG Pharmacy Profile Note (Pharmacy Communication) 1 each ONCE MISC 07/21/25 15:30 07/21/25 15:16 DC Piperacillin Sod/ Tazobactam Sod 50 ml @ 200 mls/hr ONCE STAT IVPB 07/20/25 19:15 07/20/25 19:29 DC 07/20/25 20:32 200 MLS/HR Piperacillin Sod/ Tazobactam Sod (Zosyn 3.375gm+NS 50ml) 3.375 gm Q12H IV 07/21/25 00:00 07/31/25 00:00 DC 07/30/25 23:55 3.375 GM Piperacillin Sod/ Tazobactam Sod (Zosyn 3.375gm+NS 50ml) 3.375 gm Q8H IVPB 07/31/25 11:30 08/10/25 11:29 08/06/25 12:23 3.375 GM Potassium Chloride 100 ml @ 100 mls/hr AD PRN IV POTASSIUM PROTOCOL 07/24/25 08:30 08/23/25 08:29 07/30/25 06:23 100 MLS/HR Potassium Chloride (K-Dur/Klor-Con 20meq) 20 meq AD PRN PO POTASSIUM PROTOCOL 07/24/25 08:30 08/23/25 08:29 07/27/25 20:33 20 MEQ Potassium Chloride (KCl 10% Elixir 20meq/15ml) 20 meq AD PRN PO POTASSIUM PROTOCOL 07/24/25 08:30 08/23/25 08:29 07/31/25 08:15 20 MEQ Psyllium Hydrophilic Mucilloid (Metamucil) 1 tbs BID PO 07/26/25 21:00 08/25/25 20:59 08/06/25 09:00 1 TBS Simethicone (Mylicon) 80 mg Q6H6 PO 07/27/25 12:00 08/26/25 11:59 08/06/25 12:23 80 MG Sodium Bicarbonate 150 meq/Sodium Chloride 1,150 ml @ 0 mls/hr Q0M IVP 07/21/25 14:00 07/26/25 09:31 DC Sodium Chloride (NS 50ml) 50 ml AD IV 07/31/25 11:30 07/31/25 11:12 DC Spironolactone (Aldactone 25mg) 25 mg BID PO 07/25/25 21:00 07/26/25 09:01 DC 07/26/25 08:56 25 MG Sucralfate (Carafate) 1 gm ACHS PO 07/29/25 21:00 08/28/25 20:59 08/06/25 12:23 1 GM Thiamine HCl (Vitamin B-1) 100 mg DAILY IVP 07/22/25 21:00 08/21/25 20:59 08/06/25 09:01 100 MG Thiamine HCl 100 mg/Sodium Chloride 50 ml @ 100 mls/hr Q24H IM 07/21/25 15:30 07/21/25 16:25 DC Vancomycin HCl (Vancomycin 1g/ 250ml Kit) 1 gm ONCE STAT IV 07/20/25 21:23 07/20/25 21:26 DC 07/20/25 22:06 1 GM Vasopressin 20 units/Sodium Chloride 100 ml @ 0 mls/hr PROTOCOL IV 07/21/25 00:30 08/03/25 08:27 DC 07/21/25 00:10 9 MLS/HR DIAGNOSTICS / RADIOLOGY: [ ] ASSESSMENT: Suspected Bowel Perforation POA Perisplenic and infrasplenic fluid collection with splenomegaly Hyponatremia Bacterial peritonitis Cholelithiasis Small Bowel Obstruction, Suspected Anastomotic Leak Bilious peritonitis s/p Diagnostic laparoscopy, abdominal washout, drain placement and diverting loop ileostomy creation Atrophic vaginitis hyperkalemia Iron Deficiency anemia Diabetes Mellitus Type 2 POA Acute Kidney Injury POA Septic Shock POA Cirrhosis of liver POA Esophageal Varices Recent Robotic takedown of splenic flexure mobilization, robotic takedown of colovesical fistula with sigmoid colectomy and end-to-end anastomosis surgery PLAN: Bilious peritonitis status post Diagnostic laparoscopy, abdominal washout, drain placement and diverting loop ileostomy creation -Continue close monitoring of the patient -continue physical therapy -Monitor CHRIS drain output -Continues with high output from CHRIS but it is clear serous, most likely related to her ascites from her history of liver cirrhosis -Continue Lactated Ringer's at 75 ml/hr for volume resuscitation and electrolyte replacement -continue Zosyn [day 17] and fluconazole [day 17] -Flexeril 5 mg t.i.d. has been started by the Surgery team. -Probiotics and Fibers have been added for bloating. -Protonix IV increased to twice daily. - Patient has been started on Parnell by general surgery for abdominal pain, and is advised to take Diluadid only for breakthrough pain. -HIDA scan positive for acute cholecystitis. Surgery has been made aware. - IR did a Fluoroscopy and ultrasound-guided placement of cholecystotomy tube and cholecystogram on 08/02/2025. -Dr. Sol saw the patient and he recommended 25g of 25% albumin for 3 days. -Gastroenterology is planning to do EGD and they did biopsy from 3 sites. GI said that they will consult radiology to check whether CHRIS drain and cholecystostomy tube are in place. -Surgery wanted to do a CT abdomen and pelvis with IV contrast. CT scan showed perisplenic and infrasplenic fluid collection measuring 6.0 x 6.1 x 8.9 cm, splenomegaly, with spleen measuring 15.2 cm, cholecystostomy tube in situ with decompressed gallbladder, abdominal drain in situ with tip in the pelvis. -GI said that they will consult radiology to check whether CHRIS drain and cholecystostomy tube are in place. -We ordered T.bilirubin and we will monitor the output from colostomy tube. -We are also planning to add metoclopramide. -Currently she is on PPN. Perisplenic and infrasplenic fluid collection with splenomegaly * CT scan showed perisplenic and infrasplenic fluid collection measuring 6.0 x 6.1 x 8.9 cm, splenomegaly, with spleen measuring 15.2 cm * General surgery will consult IR to evaluate perisplenic fluid collection for potential aspiration. Hyponatremia * Today her sodium level is 135. * Will repeat her labs tomorrow. Bacterial Peritonitis * Post Surgical patient with Bacterial peritonitis positive for ESBL * Culture and sensitivity shows susceptibility to Zosyn, Gentamicin and Meropenem. * Likely secondary to post-operative intraabdominal infection with risk of ongoing contamination. * Currently patient is on Zosyn (Day 17) * For her continuos pain she is started on Fentanyl 25mcg. CHRIS drain culture has beens sent. Cholelithiasis * Patient complained of upper abdominal pain * Ultrasound abdomen showed: Cirrhotic-appearing liver * Cholelithiasis and biliary sludge with gallbladder distension and Small volume ascites. * Hida scan shows acute cholecystitis. * Per Surgery: IR to be consulted for cholecystostomy tube placement. * IR did a Fluoroscopy and ultrasound-guided placement of cholecystotomy tube and cholecystogram on 08/02/2025. Small Bowel Obstruction, Suspected * Patient complaints of abdominal pain which is 9/10 on intensity * Abdominal Xray showed: Dilated small bowel loops are seen in mid abdomen * Perform Serial abdominal exams * Pain management(avoid excess opioids if ileus is suspected) * Evaluate drain, bowel status * Monitor for resolution vs progression of Ileus/obstruction. 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 - CT abdominal pelvis w/contrast done on 07/20/2025 showed Free air in the upper abdomen is seen, suggesting perforated bowel vs post surgical changes. No obstruction. -underwent Diagnostic laparoscopy, abdominal washout, drain placement and diverting loop ileostomy creation for biliary peritonitis Atrophic vaginitis * Her bleeding is resolved * We did a pelvic examination. * Ordered topical estrogen. * Urinalysis showed cloudy urine, protein 30, trace occult blood, RBC is 11 to 25, WBC is 26 to 50. hyperkalemia * Today his potassium is 4.2 * Will repeat her labs tomorrow. Iron Deficiency anemia * Hemoglobin today is 8.1. * Iron sucrose (venofer) has been ordered. * Anemia panel has been ordered. Results showed Iron 24L, %sat 16.3 and TIBC 147L. 07/30/25 * Recommend trending Hgb and transfuse as needed to goal Hgb >7. * Plan to initiate the patient on Venofer, her last dose of Venofer was 200 mg on 07/26/2025 * Iron level is 20L, % saturation 11.9, TIBC 167L, Ferritin 129. 07/25/25 Septic Shock -resolved -Her WBC is 4.3 today. 08/06/2025 -Her WBC during the presentation was 21.2 -lactic acid is 1.5 on 07/31/2025 -blood and urine culture results are negative Acute Kidney Injury Resolved -Creatinine improved from 1.6-1.1-0.7-0.6-0.6-0.6-0.6-0.6-0.5-0.6-0.6-0.5-0.5-0.3-0.6. 08/06/2025 -Initial FeNA is 0.1 %, probably secondary to dehydration and NSAIDs overuse. -initial Urine sodium is < 13 and urine creatinine is 132.17. -Avoid nephrotoxic agents, eg. NSAIDS. -Weight patient daily. -Monitor intake and output. -Ordered urinalysis Cirrhosis of liver -Patient has a past history of cirrhosis of liver. - Liver functions are within normal limits. AST 20, ALT 9 and ALP 67. - Avoid NSAIDs and high dose acetaminophen. -Maintain appropriate volume of the patient. -Patient has been started on Spironolactone 25 mg b.i.d. and Lasix 20 mg once daily. 07/25/25 -Albumin is given today for the hypotension. -Patients family is requesting that Dr. Sol be involved in the patients care. Supportive measures -Maintain IV fluids, correct electrolytes -Serial abdominal exams -Rigging [employer]ft [employer] on avoidance of NSAIDS and other related triggers. -Monitor Vitals and perform morning labs regularly Continue GI prophylaxis with Pantop Continue DVT prophylaxis with SCDs, we will avoid heparin due to history of allergies to porcine, we will coordinate with surgery consult on initiation of other anticoagulants ATTESTATION BY PHYSICIAN I have seen and examined the patient. I reviewed the documentation, medical decision making, and treatment plan as noted by the resident provider above. I agree with the findings and plan of care. Denzel Coello IV, MD, AKSHAY MD Aug 06, 2025 14:35
[2025-08-06 16:00] VITALS: BP 109/53; PULSE 83; RESP 18; TEMP 98.8
[2025-08-06] MEDS: PHARMACY COMMUNICATION MISC SCH (16:00)
--- NOTE | 2025-08-06 16:22 | PN ---
NEPHROLOGY NOTE SUBJECTIVE: This patient has renal dysfunction, anemia. The patient has sepsis, hypotension, bowel perforation before inspected with abdominal surgery. The patient had cholecystostomy tube also placed. She remains weak and remains on antibiotics. No other associated findings. The patient continues on Zosyn, fluconazole. The patient has persistent abdominal pain, previous sepsis, recent acute renal failure, multiple electrolyte abnormalities. PHYSICAL EXAMINATION: VITAL SIGNS: Blood pressure is 102/66, pulse is 82, and respiratory rate is 18. HEENT: Head is atraumatic, normocephalic. Pupils are round and reactive to light. Sclerae are anicteric. Conjunctivae not pale. Oral mucosa is not dry. NECK: Without masses or bruits. Thyroid is palpable. Neck has no bruits. CHEST: Shows equal thoracic percussion, note being resonant in all areas. LABORATORY DATA: Have been reviewed in old records. IMAGING STUDIES: Imaging studies are reviewed. PROBLEMS: * Renal failure. * Anemia. * Multiple other comorbidities PLAN: Continue supportive care. No need for dialysis. Continue monitoring of anemia and renal function and electrolyte. Renal function is better. Electrolytes will be monitored. Sodium is low. Please avoid any nephrotoxic agents. We will follow up closely. TID: [id number] RECEIPT: [id number]
[2025-08-06] MEDS ORDERED: COMPOUND PO MISCELLANEOUS 1 EACH MISC MISC PRN (16:30)
[2025-08-06] MEDS: LIDO 2% VISC 30ML+MAG/AL/SIMETH 30ML+DICYCLOMINE 20MG 10ML PO SCH (16:45)
--- NOTE | 2025-08-06 17:08 | PN ---
This is a 55-year-old female status post diagnostic laparoscopy with the abdominal washout and drain placement with diverting loop ileostomy creation by Dr. Gann Interval history: This is a 55-year-old female resting in her room Patient is still complaining of what appears to be flank pain IR consulted for perisplenic fluid collection but we will see patient Saturday Cholecystostomy tube with what appears to be serous fluid not appearing to be completely bilious Patient is currently on clear liquid diet but reports discomfort now every time she eats Ostomy productive Biopsies pending Physical exam General: Awake alert and oriented Heart: Regular rate and rhythm} Lungs: Clear to auscultation no distress Abdomen: [Soft, nontender, nondistended ostomy with good color to stoma CHRIS in place Cholecystostomy tube in place Assessment : This is a 55-year-old female status post diagnostic laparoscopy with the abdominal washout and drain placement with diverting loop ileostomy creation by Dr. Gann Plan After discussing case with Dr. Azeem Gann recommending GI cocktail to assess if discomfort coming from gastritis Patient is cleared to advance diet to food she feels that she will enjoy more Continue with the current pain management regimen Nursing report any further acute events Surgical team to follow patient closely Surgical case has been discussed with my supervising physician in the above plan was formulated and agreed upon We appreciate the hospitalist team for us to participate in patient's care. Greater than 45 minutes of time spent patient, reviewing chart, working on documentation Vitals/Labs Vital Signs Date Time Temp Pulse Resp B/P (MAP) Pulse Ox O2 Delivery O2 Flow Rate FiO2 08/06/25 16:00 98.8 83 18 109/53 98 Room Air 08/06/25 12:00 21 08/05/25 20:00 0 Laboratory Tests 08/06/25 04:20 Medications Current Medications Sodium Chloride 1,000 ml @ 0 mls/hr ONCE ONCE IV; Start 07/20/25 at 18:30; Stop 07/20/25 at 18:31; Status DC Piperacillin Sod/ Tazobactam Sod 50 ml @ 200 mls/hr ONCE STAT IVPB Last administered on 07/20/25at 20:32; Start 07/20/25 at 19:15; Stop 07/20/25 at 19:29; Status DC Sodium Chloride 2,109 ml @ 703 mls/hr ONCE ONCE IV Last administered on 07/20/25at 20:28; Start 07/20/25 at 19:30; Stop 07/20/25 at 22:29; Status DC Iohexol 75 ml STK-MED ONCE IV; Start 07/20/25 at 20:31; Stop 07/20/25 at 20:31; Status DC Vancomycin HCl 1 gm ONCE STAT IV Last administered on 07/20/25at 22:06; Start 07/20/25 at 21:23; Stop 07/20/25 at 21:26; Status DC Morphine Sulfate 4 mg ONCE ONCE IVP Last administered on 07/20/25at 23:15; Start 07/20/25 at 23:30; Stop 07/20/25 at 23:31; Status DC Ondansetron HCl 4 mg ONCE ONCE IVP Last administered on 07/20/25at 23:14; Start 07/20/25 at 23:30; Stop 07/20/25 at 23:31; Status DC Norepinephrine 250 ml @ 0 mls/hr PROTOCOL IV Last administered on 07/21/25at 10:56; Start 07/20/25 at 23:30; Stop 08/03/25 at 08:27; Status DC Piperacillin Sod/ Tazobactam Sod 3.375 gm Q12H IV Last administered on 07/30/25at 23:55; Start 07/21/25 at 00:00; Stop 07/31/25 at 00:00; Status DC Acetaminophen 650 mg Q6H PRN RC; Start 07/21/25 at 00:00; Stop 07/27/25 at 16:22; Status DC Pantoprazole Sodium 40 mg DAILY IV Last administered on 07/26/25at 08:55; Start 07/21/25 at 09:00; Stop 07/26/25 at 09:31; Status DC Ondansetron HCl 4 mg Q6H PRN IV; Start 07/21/25 at 00:00; Stop 07/21/25 at 13:18; Status DC Morphine Sulfate 2 mg Q4H PRN IVP Last administered on 07/21/25at 04:46; Start 07/21/25 at 00:30; Stop 07/21/25 at 13:18; Status DC Lactated Ringer's 1,000 ml @ 75 mls/hr [id number] IV Last administered on 07/21/25at 02:57; Start 07/21/25 at 00:00; Stop 07/21/25 at 13:17; Status DC Insulin Human Regular INSULIN SLIDING SCAL... ACHS SQ Last administered on 07/22/25at 20:40; Start 07/21/25 at 07:30; Stop 08/20/25 at 07:29 Vasopressin 20 units/Sodium Chloride 100 ml @ 0 mls/hr PROTOCOL IV Last administered on 07/21/25at 00:10; Start 07/21/25 at 00:30; Stop 08/03/25 at 08:27; Status DC Vasopressin 20 units STK-MED ONCE .ROUTE; Start 07/21/25 at 00:10; Stop 07/21/25 at 00:11; Status DC Magnesium Sulfate 50 ml @ 0 mls/hr PROTOCOL PRN IV Last administered on 08/01/25at 06:05; Start 07/21/25 at 07:00; Stop 08/20/25 at 06:59 Acetaminophen 100 ml @ As Directed STK-MED ONCE .ROUTE; Start 07/21/25 at 09:42; Stop 07/21/25 at 09:42; Status DC Famotidine 20 mg STK-MED ONCE IV; Start 07/21/25 at 09:42; Stop 07/21/25 at 09:42; Status DC Albumin Human 500 ml @ As Directed STK-MED ONCE IV; Start 07/21/25 at 09:45; Stop 07/21/25 at 09:45; Status DC Phenylephrine HCl 10 mg STK-MED ONCE IV; Start 07/21/25 at 09:48; Stop 07/21/25 at 09:48; Status DC Dexamethasone Sodium Phosphate 10 mg STK-MED ONCE .ROUTE; Start 07/21/25 at 09:52; Stop 07/21/25 at 09:52; Status DC Ondansetron HCl 4 mg STK-MED ONCE .ROUTE; Start 07/21/25 at 09:52; Stop 07/21/25 at 09:52; Status DC Lidocaine HCl 100 mg STK-MED ONCE .ROUTE; Start 07/21/25 at 09:52; Stop 07/21/25 at 09:52; Status DC Succinylcholine Chloride 200 mg STK-MED ONCE .ROUTE; Start 07/21/25 at 09:53; Stop 07/21/25 at 09:53; Status DC Glycopyrrolate 1 mg STK-MED ONCE .ROUTE; Start 07/21/25 at 09:53; Stop 07/21/25 at 09:53; Status DC Fentanyl Citrate 100 mcg STK-MED ONCE .ROUTE; Start 07/21/25 at 09:54; Stop 07/21/25 at 09:54; Status DC Propofol 200 mg STK-MED ONCE IV; Start 07/21/25 at 09:54; Stop 07/21/25 at 09:54; Status DC Neostigmine Methylsulfate 10 mg STK-MED ONCE IV; Start 07/21/25 at 09:54; Stop 07/21/25 at 09:54; Status DC Rocuronium [place] 50 mg STK-MED ONCE .ROUTE; Start 07/21/25 at 09:54; Stop 07/21/25 at 09:54; Status DC Ketamine HCl 50 mg STK-MED ONCE .ROUTE; Start 07/21/25 at 09:55; Stop 07/21/25 at 09:56; Status DC Epinephrine HCl 1 mg STK-MED ONCE .ROUTE; Start 07/21/25 at 10:03; Stop 07/21/25 at 10:03; Status DC Midazolam HCl 2 mg STK-MED ONCE .ROUTE; Start 07/21/25 at 10:05; Stop 07/21/25 at 10:05; Status DC Indocyanine Green 25 mg STK-MED ONCE IJ; Start 07/21/25 at 10:49; Stop 07/21/25 at 10:49; Status DC Ephedrine Sulfate 50 mg STK-MED ONCE .ROUTE; Start 07/21/25 at 11:17; Stop 07/21/25 at 11:17; Status DC Bupivacaine HCl 5 mg STK-MED ONCE .ROUTE Last administered on 07/21/25at 12:14; Start 07/21/25 at 11:49; Stop 07/21/25 at 11:49; Status DC Sodium Bicarbonate 200 ml @ As Directed STK-MED ONCE .ROUTE; Start 07/21/25 at 12:19; Stop 07/21/25 at 12:19; Status DC Fentanyl Citrate 100 mcg STK-MED ONCE .ROUTE; Start 07/21/25 at 12:23; Stop 07/21/25 at 12:23; Status DC Phytonadione 10 mg STK-MED ONCE .ROUTE; Start 07/21/25 at 13:05; Stop 07/21/25 at 13:05; Status DC Lactated Ringer's 1,000 ml @ 75 mls/hr [id number] IV Last administered on 07/24/25at 09:27; Start 07/21/25 at 13:30; Stop 07/24/25 at 11:09; Status DC Morphine Sulfate 4 mg Q3H PRN IV Last administered on 07/26/25at 10:51; Start 07/21/25 at 13:30; Stop 07/26/25 at 16:29; Status DC Ondansetron HCl 4 mg Q4H PRN IVP; Start 07/21/25 at 13:30; Stop 08/20/25 at 13:29 Fentanyl Citrate 100 mcg STK-MED ONCE .ROUTE; Start 07/21/25 at 13:26; Stop 07/21/25 at 13:26; Status DC Sodium Bicarbonate 150 meq/Sodium Chloride 1,150 ml @ 0 mls/hr Q0M IVP; Start 07/21/25 at 14:00; Stop 07/26/25 at 09:31; Status DC Sodium Bicarbonate 100 meq ONCE ONCE IV; Start 07/21/25 at 14:00; Stop 07/21/25 at 14:23; Status DC Metronidazole/ Sodium Chloride 500 mg Q8H IV; Start 07/21/25 at 14:00; Stop 07/21/25 at 13:40; Status DC Fluconazole/ Sodium Chloride 200 mg Q24H IVPB Last administered on 08/05/25at 20:24; Start 07/21/25 at 21:00; Stop 08/20/25 at 20:59 Pharmacy Profile Note 1 each ONCE MISC; Start 07/21/25 at 15:30; Stop 07/21/25 at 15:16; Status DC Thiamine HCl 100 mg/Sodium Chloride 50 ml @ 100 mls/hr Q24H IM; Start 07/21/25 at 15:30; Stop 07/21/25 at 16:25; Status DC Sodium Bicarbonate 100 meq ONCE ONCE IV Last administered on 07/21/25at 16:42; Start 07/21/25 at 16:30; Stop 07/21/25 at 16:31; Status DC Thiamine HCl 100 mg DAILY IVP Last administered on 08/06/25at 09:01; Start 07/22/25 at 21:00; Stop 08/21/25 at 20:59 Diatrizoate Meglum/ Diatrizoate Sod 30 ml STK-MED ONCE .ROUTE; Start 07/23/25 at 15:13; Stop 07/23/25 at 15:13; Status DC Potassium Chloride 100 ml @ 100 mls/hr AD PRN IV Last administered on 07/30/25at 06:23; Start 07/24/25 at 08:30; Stop 08/23/25 at 08:29 Potassium Chloride 20 meq AD PRN PO Last administered on 07/31/25at 08:15; Start 07/24/25 at 08:30; Stop 08/23/25 at 08:29 Potassium Chloride 20 meq AD PRN PO Last administered on 07/27/25at 20:33; Start 07/24/25 at 08:30; Stop 08/23/25 at 08:29 Hydromorphone HCl 0.5 mg Q4H PRN IVP Last administered on 07/29/25at 08:22; Start 07/24/25 at 10:00; Stop 07/29/25 at 09:59; Status DC Spironolactone 25 mg BID PO Last administered on 07/26/25at 08:56; Start 07/25/25 at 21:00; Stop 07/26/25 at 09:01; Status DC Albumin Human 100 ml @ 0 mls/hr ONCE ONCE IV Last administered on 07/25/25at 17:05; Start 07/25/25 at 10:30; Stop 07/25/25 at 10:31; Status DC Albumin Human 100 ml @ 0 mls/hr ONCE IV Last administered on 07/25/25at 13:43; Start 07/25/25 at 12:00; Stop 07/26/25 at 11:59; Status DC Cyclobenzaprine HCl 5 mg TID PO Last administered on 07/26/25at 14:19; Start 07/25/25 at 14:00; Stop 07/26/25 at 14:00; Status DC Furosemide 20 mg DAILY PO Last administered on 08/02/25at 09:42; Start 07/25/25 at 11:00; Stop 08/02/25 at 11:53; Status DC Pantoprazole Sodium 40 mg BID IV Last administered on 08/06/25 09:08; Start 07/26/25 at 21:00; Stop 08/20/25 at 08:59 Psyllium Hydrophilic Mucilloid 1 tbs BID PO Last administered on 08/06/25at 09:00; Start 07/26/25 at 21:00; Stop 08/25/25 at 20:59 Lactobacillus Rhamnosus 1 each DAILY20 PO Last administered on 08/05/25at 20:29; Start 07/26/25 at 20:00; Stop 08/25/25 at 19:59 Iron Sucrose 200 mg ONCE ONCE IV Last administered on 07/26/25at 14:19; Start 07/26/25 at 14:00; Stop 07/26/25 at 14:01; Status DC Lidocaine 1 patch DAILY TP Last administered on 08/06/25 09:01; Start 07/28/25 at 09:00; Stop 08/27/25 at 08:59 Simethicone 80 mg Q6H6 PO Last administered on 08/06/25at 12:23; Start 07/27/25 at 12:00; Stop 08/26/25 at 11:59 Acetaminophen 500 mg Q6H6 PRN PO; Start 07/27/25 at 16:30; Stop 08/26/25 at 16:29 Lidocaine 1 patch ONCE ONCE TP Last administered on 07/27/25at 19:25; Start 07/27/25 at 19:30; Stop 07/27/25 at 19:31; Status DC Albumin Human 50 ml @ 0 mls/hr AD ONCE IV Last administered on 07/28/25at 17:44; Start 07/28/25 at 15:30; Stop 07/28/25 at 15:31; Status DC Albumin Human 100 ml @ 0 mls/hr AD ONCE IV Last administered on 07/29/25at 14:26; Start 07/29/25 at 12:30; Stop 07/29/25 at 12:31; Status DC Hydromorphone HCl 0.5 mg Q4H PRN IVP Last administered on 08/03/25at 13:09; Start 07/29/25 at 13:30; Stop 08/03/25 at 13:29; Status DC Gabapentin 100 mg TID PO Last administered on 08/01/25at 20:14; Start 07/29/25 at 14:00; Stop 08/02/25 at 09:21; Status DC Clotrimazole 1 GM BID TP Last administered on 08/06/25at 09:09; Start 07/29/25 at 21:00; Stop 08/28/25 at 20:59 Sucralfate 1 gm ACHS PO Last administered on 08/06/25at 16:45; Start 07/29/25 at 21:00; Stop 08/28/25 at 20:59 Piperacillin Sod/ Tazobactam Sod 3.375 gm Q8H IVPB Last administered on 08/06/25at 12:23; Start 07/31/25 at 11:30; Stop 08/10/25 at 11:29 Sodium Chloride 50 ml AD IV; Start 07/31/25 at 11:30; Stop 07/31/25 at 11:12; Status DC Iron Sucrose 300 mg/Sodium Chloride 250 ml @ 83 mls/hr ONCE ONCE IV Last administered on 07/31/25at 13:36; Start 07/31/25 at 12:00; Stop 07/31/25 at 15:00; Status DC Fentanyl 25 mcg Q72H TD; Start 07/31/25 at 14:30; Stop 07/31/25 at 14:44; Status DC Acetaminophen/ Hydrocodone Bitart 1 tab Q4H PRN PO Last administered on 08/05/25at 14:57; Start 07/31/25 at 16:30; Stop 08/05/25 at 16:29; Status DC Chromium/Copper/ Manganese/Zinc 3 ml/Multivitamins/ Minerals 10 ml/ Amino Acids/ Electrolytes/ Dextrose 2,000 ml @ 80 mls/hr ONCE ONCE IV Last administered on 08/01/25at 20:25; Start 08/01/25 at 20:00; Stop 08/02/25 at 20:59; Status DC Albumin Human 100 ml @ 0 mls/hr AD ONCE IV Last administered on 08/02/25at 09:41; Start 08/02/25 at 09:30; Stop 08/02/25 at 09:33; Status DC Lidocaine HCl 20 ml STK-MED ONCE .ROUTE; Start 08/02/25 at 11:24; Stop 08/02/25 at 11:24; Status DC Iohexol 50 ml STK-MED ONCE IV; Start 08/02/25 at 11:24; Stop 08/02/25 at 11:25; Status DC Estrogens Conjugated 1 appl ONCE ONCE VG; Start 08/02/25 at 12:00; Stop 08/02/25 at 12:01; Status DC Fentanyl Citrate 100 mcg STK-MED ONCE .ROUTE; Start 08/02/25 at 11:53; Stop 08/02/25 at 11:53; Status DC Midazolam HCl 2 mg STK-MED ONCE .ROUTE; Start 08/02/25 at 11:54; Stop 08/02/25 at 11:54; Status DC Midazolam HCl 2 mg STK-MED ONCE .ROUTE; Start 08/02/25 at 12:15; Stop 08/02/25 at 12:16; Status DC Multivitamins/ Minerals 10 ml/ Chromium/Copper/ Manganese/Zinc 3 ml/Amino Acids/ Electrolytes/ Dextrose 2,000 ml @ 80 mls/hr ONCE ONCE IV Last administered on 08/02/25at 21:08; Start 08/02/25 at 20:00; Stop 08/03/25 at 18:39; Status DC Estrogens Conjugated 1 appl ONCE ONCE VG Last administered on 08/02/25at 18:47; Start 08/02/25 at 18:30; Stop 08/02/25 at 18:31; Status DC Albumin Human 50 ml @ 0 mls/hr Q12H IV; Start 08/02/25 at 18:30; Stop 08/02/25 at 20:04; Status DC Albumin Human 50 ml @ 100 mls/hr Q12H IV Last administered on 08/05/25at 10:12; Start 08/02/25 at 21:30; Stop 08/05/25 at 09:59; Status DC Hydromorphone HCl 0.5 mg Q4H PRN IVP Last administered on 08/06/25at 16:45; Start 08/03/25 at 18:00; Stop 08/08/25 at 17:59 Chromium/Copper/ Manganese/Zinc 3 ml/Multivitamins/ Minerals 10 ml/ Amino Acids/ Electrolytes/ Dextrose 2,000 ml @ 80 mls/hr ONCE ONCE IV Last administered on 08/03/25at 21:51; Start 08/03/25 at 20:00; Stop 08/04/25 at 12:47; Status DC Chromium/Copper/ Manganese/Zinc 3 ml/Multivitamins/ Minerals 10 ml/ Amino Acids/ Electrolytes/ Dextrose 2,000 ml @ 80 mls/hr ONCE ONCE IV Last administered on 08/04/25at 21:54; Start 08/04/25 at 21:00; Stop 08/05/25 at 21:59; Status DC Metoclopramide HCl 5 mg BID IVP Last administered on 08/06/25at 09:01; Start 08/04/25 at 21:00; Stop 09/03/25 at 20:59 Iohexol 75 ml STK-MED ONCE IV; Start 08/04/25 at 14:27; Stop 08/04/25 at 14:26; Status DC Propofol 200 mg STK-MED ONCE IV; Start 08/05/25 at 12:54; Stop 08/05/25 at 12:54; Status DC Lidocaine HCl 100 mg STK-MED ONCE .ROUTE; Start 08/05/25 at 12:54; Stop 08/05/25 at 12:55; Status DC Pantoprazole Sodium 40 mg BID IVP Last administered on 08/05/25at 20:25; Start 08/05/25 at 21:00; Stop 08/06/25 at 08:39; Status DC Multivitamins/ Minerals 10 ml/ Amino Acids/ Electrolytes/ Dextrose 2,000 ml @ 80 mls/hr ONCE ONCE IV Last administered on 08/06/25at 04:53; Start 08/06/25 at 05:00; Stop 08/07/25 at 05:59 Pharmacy Profile Note 1 each ONCE MISC; Start 08/06/25 at 16:00; Stop 08/13/25 at 15:59 Lidocaine HCl/Al Hydroxide/Mg Hydroxide/ Dicyclomine HCl 20ML OR AD ONCE PO Last administered on 08/06/25at 16:45; Start 08/06/25 at 16:30; Stop 08/07/25 at 16:29 BENEDICTO OBRIEN Jr. Aug 06, 2025 17:08
[2025-08-06 20:00] VITALS: BP 113/70; PULSE 88; RESP 18; TEMP 99
--- NOTE | 2025-08-06 21:59 | PN ---
INFECTIOUS DISEASE PROGRESS NOTE Date of Service: Aug 06, 2025 SUBJECTIVE: Patient is s/p EGD day #1. No nausea or vomiting during visit today. Very little yellowish drainage observe in the cholecystostomy tube drainage bag with concern of dislodgement. Per report the tube will be evaluated cardiology on Saturday. Continues on Zosyn and fluconazole. Patient has been a clear liquid diet and continues on TPN. PHYSICAL EXAM EYES: Anicteric. Pupils equal and reactive. HENT: No oral thrush seen, moist Oral mucosa. NECK: Supple, no JVD or thyromegaly. LUNGS: Good air entry. No rales, no rhonchi. CARDIOVASCULAR: S1, S2 regular. No murmur heard. ABDOMEN: Soft, non tender, bowel sounds present, no organomegaly. CHRIS drain. Ileostomy creation. Right cholecystostomy tube. CENTRAL NERVOUS SYSTEM: Awake, alert, oriented x 3. SKIN: No rashes, no swelling. LYMPHATICS: No peripheral lymphadenopathy. MUSCULOSKELETAL: No joint swelling, erythema or tenderness. EXTREMITIES: No cyanosis or clubbing. BACK: No deformity, no pressure ulcer. GENITOURINARY: No dysuria or hematuria. Vital Sign (Last 12 Hours) 08/06/25 08/06/25 08/06/25 12:00 16:00 20:00 Temp 98.1 98.8 99.0 Pulse 78 83 88 Resp 18 18 18 B/P (MAP) 97/63 109/53 113/70 Pulse Ox 97 98 95 O2 Delivery Room Air Room Air Room Air FiO2 21 Intake & Output (last 24hrs) 08/05/25 08/05/25 08/06/25 15:00 23:00 07:00 Intake Total 50.0 ml 480.0 ml 1850.0 ml Output Total 1570 ml Balance 50.0 ml 480.0 ml 280.0 ml LABS: Laboratory: Test 08/06/25 19:55 08/06/25 04:20 08/05/25 03:43 Range/Units Whole Blood Glucose 152 H 70-110 MG/DL White Blood Count 4.3 L 4.8-10.8 K/uL Red Blood Count 2.68 L 4.00-5.50 MIL/uL Hemoglobin 8.1 L 12.0-16.0 g/dL Hematocrit 25.1 L 36-48 % Mean Corpuscular Volume 93.7 79-99 fL Mean Corpuscular Hemoglobin 30.2 27.0-33.0 pg Mean Corpuscular Hemoglobin Concent 32.3 32.0-36.0 g/dL Red Cell Distribution Width 17.8 H 11.0-15.5 % Platelet Count 155 130-400 K/uL Mean Platelet Volume 9.6 7.5-10.5 fL Nucleated Red Blood Cells 0.0 0.0-0.19 % Sodium Level 135 L 136-145 mmol/L Potassium Level 4.2 3.5-5.1 mmol/L Chloride Level 105 101-111 mmol/L Carbon Dioxide Level 23 21-32 mmol/L Blood Urea Nitrogen 9 7-18 mg/dL Creatinine 0.6 0.5-1.0 mg/dL Glomerular Filtration Rate Calc 105 >90 mL/min Random Glucose 149 H 70-105 mg/dL Total Calcium 8.2 L 8.5-10.1 mg/dL C-Reactive Protein, Quantitative 53.60 H 0.5-3.0 mg/L Total Bilirubin 0.6 0.2-1.0 mg/dL Direct Bilirubin 0.1 0.0-0.3 mg/dL ASSESSMENT: Acute cholecystitis, s/p cholecystostomy tube placement on 08/02/2025. Persistent abdominal pain, s/p EGD with findings acute gastritis.. Hypoxic respiratory failure requiring oxygen support, resolved. Septic shock. Generalized peritonitis with ESBL and E coli infection. Infection with multidrug resistant organism. Hypoalbuminemia. Suspected bowel perforation, s/p diagnostic laparoscopy, abdominal washout, ileostomy creation and CHRIS drain placement on 07/21/2025. Diabetes mellitus. Recent colovesical fistula repair with sigmoid colon resection and anastomosis on 07/09/2025 PLAN: Continue Zosyn. Continue fluconazole. Continue pain management. Avoid nephrotoxic medications. Continue GI prophylaxis. Continue antidiabetics. Continue nutritional support, on clear liquids and PPN. Radiology to evaluate cholecystostomy tube on Saturday due to concern of dislo dgment. This case was reviewed and discussed with my supervising physician Dr. Roger and the above assessment and plan was formulated and agreed upon. ATTESTATION BY PHYSICIAN I have seen and examined the patient. I reviewed the documentation, medical decision making, and treatment plan as noted by the mid-level provider above. I agree with the findings and plan of care. AMIE ROGER MD, [facility] Aug 06, 2025 21:59
[2025-08-07] VITALS: BP 112/70; PULSE 82; RESP 18; TEMP 99
[2025-08-07 04:00] VITALS: BP 104/59; PULSE 85; RESP 18; TEMP 98.7
[2025-08-07 04:56] LABS: NUCLEATED RED BLOOD CELLS 0.0 % (0.0-0.19); PLATELET COUNT (AUTO) 133.0 K/uL (130-400); RED BLOOD CELL COUNT(AUTO) 2.89 MIL/uL (4.00-5.50); RED CELL DISTRIBUTION WIDTH 17.3 % (11.0-15.5); WHITE BLOOD COUNT (AUTO) 4.4 K/uL (4.8-10.8)
[2025-08-07 05:31] LABS: CREATININE 0.4 mg/dL (0.5-1.0); GLOMERULAR FILTR. RATE CALC 115.0 mL/min (>90); GLUCOSE,RANDOM 126.0 mg/dL (70-105); SODIUM SERUM 134.0 mmol/L (136-145); UREA NITROGEN, BLOOD 12.0 mg/dL (7-18)
[2025-08-07] MEDS: M.V.I. IV [ADULT] 10 ML, MULTITRACE-4 ADULT 10ML VIAL 3 ML in CLINIMIX-E4.25%AA/D5+LYT2... IV ONE (06:41)
[2025-08-07] MEDS ORDERED: M.V.I. IV [ADULT] 10 ML in CLINIMIX-E4.25%AA/D5+LYT2000ML 2,000 ML IV ONE (07:00)
[2025-08-07 07:38] LABS: PHOSPHORUS 2.7 mg/dL (2.5-4.9)
[2025-08-07 08:00] VITALS: BP 113/68; PULSE 82; RESP 18; TEMP 98; O2SAT 97
--- NOTE | 2025-08-07 09:45 | PN ---
NEPHROLOGY PROGRESS NOTE Date/Time Patient Seen: Aug 07, 2025 SUBJECTIVE: This is a 55-year-old female with a past medical history of diabetes mellitus type 2, liver cirrhosis, esophageal varices. He presented to the emergency room with chief complain of abdominal pain. CT of the abdomen showed moderate small bowel enteritis with free air in the upper abdomen, suggesting perforated bowel versus post surgical changes. No obst ruction. S/p diagnostic laparoscopy, abdominal washout, drain placement and diverting loop ileostomy creation with CHRIS drain 10 Martiniquais on 07/21 S/P fluoroscopy and ultrasound-guided placement of cholecystotomy tube and cholecystogram. She was noted to have elevated BUN/creatinine We are consulted for renal failure Renal function and electrolytes are stable. She continues to be followed by surgery. She was seen in the medial floor, in no acute distress No family at the bedside REVIEW OF SYSTEMS: GENERAL: Positive for abdominal pain and nausea NEUROLOGIC: Negative for any blurry vision, blind spots, double vision, facial asymmetry, dysphagia, dysarthria, hemiparesis, hemisensory deficits, vertigo, ataxia. HEENT: Negative for any head trauma, neck trauma, neck stiffness, photophobia, phonophobia, sinusitis, rhinitis. CARDIAC: Negative for any chest pain, dyspnea on exertion, paroxysmal nocturnal dyspnea, peripheral edema. PULMONARY: Negative for any shortness of breath, wheezing, COPD, or TB exposure. GASTROINTESTINAL: Negative for any abdominal pain, nausea, vomiting, bright red blood per rectum, melena. GENITOURINARY: Negative for any dysuria, hematuria, incontinence. INTEGUMENTARY: Negative for any rashes, cuts, insect bites. RHEUMATOLOGIC: Negative for any joint pains, photosensitive rashes, history of vasculitis or kidney problems. HEMATOLOGIC: Negative for any abnormal bruising, frequent infections or bleeding. Vital Signs (last 8hr) Date Time Temp Pulse Resp B/P (MAP) Pulse Ox O2 Delivery O2 Flow Rate FiO2 08/07/25 08:00 98.1 82 18 113/68 97 Room Air 08/07/25 04:00 98.8 85 18 104/59 96 Room Air PHYSICAL EXAM: GENERAL: Alert and oriented x 3. No acute distress. Well-nourished. EYES: EOMI. Anicteric. HENT: Moist mucous membranes. No scleral icterus. No cervical lymphadenopathy. LUNGS: Clear to auscultation bilaterally. No accessory muscle use. CARDIOVASCULAR: Regular rate and rhythm. No murmur. No JVD. ABDOMEN: Soft, non-tender and non-distended. No palpable masses. EXTREMITIES: No edema. Non-tender SKIN: No rashes or lesions. Warm. NEUROLOGIC: No focal neurological deficits. CN II-XII grossly intact, but not individually tested. PSYCHIATRIC: Cooperative. Appropriate mood and affect. Current Medications Medications (Trade) Dose Ordered Sig/Gregory Route Start Time Stop Time Status Last Admin Dose Admin Albumin Human 100 ml @ 0 mls/hr ONCE IV 07/25/25 12:00 07/26/25 11:59 DC 07/25/25 13:43 100 MLS/HR Cyclobenzaprine HCl (Cyclobenzaprine HCl) 5 mg TID PO 07/25/25 14:00 07/26/25 14:00 DC 07/26/25 14:19 5 MG Fluconazole/ Sodium Chloride (DiFLUCan 200 MG/ NS 100 ML) 200 mg Q24H IVPB 07/21/25 21:00 08/20/25 20:59 07/25/25 20:47 200 MG Furosemide (LASix 20MG TAB) 20 mg DAILY PO 07/25/25 11:00 08/24/25 10:59 07/26/25 08:56 20 MG Insulin Human Regular (humuLIN R 100 UNIT/ML 3ML) INSULIN SLIDING SCAL... ACHS SQ 07/21/25 07:30 08/20/25 07:29 07/22/25 20:40 3 UNIT Lactated Ringer's 1,000 ml @ 75 mls/hr [id number] IV 07/21/25 00:00 07/21/25 13:17 DC 07/21/25 02:57 75 MLS/HR Lactated Ringer's 1,000 ml @ 75 mls/hr [id number] IV 07/21/25 13:30 07/24/25 11:09 DC 07/24/25 09:27 75 MLS/HR Lactobacillus Rhamnosus ([facility] [employer]) 1 each DAILY20 PO 07/26/25 20:00 08/25/25 19:59 Metronidazole/ Sodium Chloride (flaGYL) 500 mg Q8H IV 07/21/25 14:00 07/21/25 13:40 DC Norepinephrine 250 ml @ 0 mls/hr PROTOCOL IV 07/20/25 23:30 08/19/25 23:29 07/21/25 10:56 18.45 MLS/HR Pantoprazole Sodium (PROTonix 40MG INJ) 40 mg BID IV 07/26/25 21:00 08/20/25 08:59 Pantoprazole Sodium (PROTonix 40MG INJ) 40 mg DAILY IV 07/21/25 09:00 07/26/25 09:31 DC 07/26/25 08:55 40 MG Pharmacy Profile Note (Pharmacy Communication) 1 each ONCE MISC 07/21/25 15:30 07/21/25 15:16 DC Piperacillin Sod/ Tazobactam Sod 50 ml @ 200 mls/hr ONCE STAT IVPB 07/20/25 19:15 07/20/25 19:29 DC 07/20/25 20:32 200 MLS/HR Piperacillin Sod/ Tazobactam Sod (Zosyn 3.375gm+NS 50ml) 3.375 gm Q12H IV 07/21/25 00:00 07/31/25 00:00 07/26/25 12:10 3.375 GM Psyllium Hydrophilic Mucilloid (Metamucil) 1 tbs BID PO 07/26/25 21:00 08/25/25 20:59 Sodium Bicarbonate 150 meq/Sodium Chloride 1,150 ml @ 0 mls/hr Q0M IVP 07/21/25 14:00 07/26/25 09:31 DC Spironolactone (Aldactone 25mg) 25 mg BID PO 07/25/25 21:00 07/26/25 09:01 DC 07/26/25 08:56 25 MG Thiamine HCl (Vitamin B-1) 100 mg DAILY IVP 07/22/25 21:00 08/21/25 20:59 07/26/25 08:55 100 MG Thiamine HCl 100 mg/Sodium Chloride 50 ml @ 100 mls/hr Q24H IM 07/21/25 15:30 07/21/25 16:25 DC Vancomycin HCl (Vancomycin 1g/ 250ml Kit) 1 gm ONCE STAT IV 07/20/25 21:23 07/20/25 21:26 DC 07/20/25 22:06 1 GM Vasopressin 20 units/Sodium Chloride 100 ml @ 0 mls/hr PROTOCOL IV 07/21/25 00:30 08/20/25 00:29 07/21/25 00:10 9 MLS/HR LABORATORY: [ ] Hematology Labs: Test 08/07/25 04:27 Range/Units White Blood Count 4.4 L 4.8-10.8 K/uL Red Blood Count 2.89 L 4.00-5.50 MIL/uL Hemoglobin 8.5 L 12.0-16.0 g/dL Hematocrit 27.1 L 36-48 % Mean Corpuscular Volume 93.8 79-99 fL Mean Corpuscular Hemoglobin 29.4 27.0-33.0 pg Mean Corpuscular Hemoglobin Concent 31.4 L 32.0-36.0 g/dL Red Cell Distribution Width 17.3 H 11.0-15.5 % Platelet Count 133 130-400 K/uL Mean Platelet Volume 9.5 7.5-10.5 fL Nucleated Red Blood Cells 0.0 0.0-0.19 % Chemistry Labs: Test 08/07/25 05:03 08/07/25 04:27 08/06/25 04:20 Range/Units Whole Blood Glucose 129 H 70-110 MG/DL Sodium Level 134 L 136-145 mmol/L Potassium Level 4.2 3.5-5.1 mmol/L Chloride Level 104 101-111 mmol/L Carbon Dioxide Level 22 21-32 mmol/L Blood Urea Nitrogen 12 7-18 mg/dL Creatinine 0.4 L 0.5-1.0 mg/dL Glomerular Filtration Rate Calc 115 >90 mL/min Random Glucose 126 H 70-105 mg/dL Total Calcium 8.5 8.5-10.1 mg/dL Phosphorus Level 2.7 2.5-4.9 mg/dL Magnesium Level 1.90 1.80-2.40 mg/dL C-Reactive Protein, Quantitative 53.60 H 0.5-3.0 mg/L DIAGNOSTICS / RADIOLOGY: [place] [address] [address] IMAGING REPORT Signed PATIENT: DALLAS BUCHANAN MR#: [id number] : 1970 SEX: F AGE: 55 LOCATION: [facility] ORDER 1337 STATUS: ADM IN REPORT#: [id number] SERVICE 1336 REASON: epigastric pain. not tolerating meals. ORDERING PHYSICIAN: SUSAN JHAVERI MD PROCEDURE: ABD PEL W - CT ABDOMEN/PELVIS W/CONTRAST EXAM: CT Abdomen and Pelvis with IV contrast CLINICAL HISTORY: epigastric pain. not tolerating meals. TECHNIQUE: Axial computed tomography images of the abdomen and pelvis with intravenous contrast. CONTRAST: with intravenous contrast. COMPARISON: Compared with the previous CT dated 07/20 and USG dated 07/29 FINDINGS: LUNG BASES: Grossly stable atelectasis and scarring at the lung bases. LIVER: Unremarkable. GALLBLADDER AND BILE DUCTS: The gallbladder is decompressed with a cholecystostomy tube in situ. PANCREAS: Unremarkable. SPLEEN: The spleen is enlarged in size, measuring 15.2 cm. ADRENAL GLANDS: Unremarkable. KIDNEYS, URETERS, AND BLADDER: No hydronephrosis or nephrolithiasis. No ureteral calculi. The urinary bladder is unremarkable. STOMACH AND BOWEL: The ileostomy site appears unremarkable. Interval resolution of previously seen moderate small bowel enteritis. No obstruction. APPENDIX: No CT evidence for appendicitis. PERITONEUM: Near complete interval resolution of previously seen moderate ascites in the abdomen and pelvis. Collection in the perisplenic and infra-splenic region measuring 6.0 x 6.1 x 8.9 cm. Interval resolution of previously seen pneumoperitoneum. Diffuse mesenteric fat stranding, likely postoperative changes. LYMPH NODES: No lymphadenopathy. REPRODUCTIVE: Unremarkable as visualized. VASCULATURE: No aortic aneurysm. ABDOMINAL WALL AND SOFT TISSUES: Interval resolution of previously seen subcutaneous emphysema in the anterior abdominal wall and left lateral chest wall. Abdominal drain in situ with tip in the pelvis. BONES: No fracture or suspicious osseous abnormality. IMPRESSION: 1. Perisplenic and infrasplenic fluid collection measuring 6.0 x 6.1 x 8.9 cm. 2. Splenomegaly, with spleen measuring 15.2 cm. 3. Cholecystostomy tube in situ with decompressed gallbladder. 4. Abdominal drain in situ with tip in the pelvis. 5. No acute findings in the remainder of the abdomen and pelvis. /[place] DICTATED BY: ELDON MILLER Jr., MD DATE: 08/04/25 6104 ELECTRONICALLY SIGNED BY: ELDON MILLER Jr., MD DATE: 08/04/25 163 PATIENT: DALLAS BUCHANAN MR#: [id number] : 1970 SEX: F AGE: 55 LOCATION: [facility] ORDER 1524 STATUS: ADM IN REPORT#: [id number] SERVICE 1523 REASON: cholecystitis ORDERING PHYSICIAN: BENEDICTO OBRIEN Jr. PROCEDURE: HIDA PHARM - NM HIDA/HEPATOBILI W/ PHARMACO EXAM: HIDA scan. INDICATION: Severe RUQ Pain to rule out cholecystitis. REFERENCE EXAMINATION: USG July 29, 2025. TECHNIQUE: Sequential images of the abdomen were obtained in the anterior projection after IV administration of 6.0 mCi of Tc99m Mebrofenin. FINDINGS: Tracer activity throughout the liver is homogeneous without focal defects. There is prompt excretion of the pharmaceutical into the bile ducts and into the small bowel, without evidence of obstruction. There is no visualization of the gallbladder at the conclusion of the examination. IMPRESSION: Scintigraphic findings are compatible with acute cholecystitis. /[place] DICTATED BY: ELDON MILLER Jr., MD DATE: 08/01/25 1011 ELECTRONICALLY SIGNED BY: ELDON MILLER Jr., MD DATE: 08/01/25 1011 PATIENT: DALLAS BUCHANAN MR#: [id number] : 1970 SEX: F AGE: 55 LOCATION: [facility] ORDER 191 STATUS: ADM IN REPORT#: [id number] SERVICE 191 REASON: ABD PAIN ORDERING PHYSICIAN: NIKKI MUNOZ NP PROCEDURE: ABD 1VW - ABD 1VW EXAM: CR Abdomen, 1 view. CLINICAL HISTORY: Pain. COMPARISON: None provided. FINDINGS: Dilated small bowel loops are seen in mid abdomen. There is a density in the pelvis which may represent a send drainage catheter. No free air is evident. No abnormal calcification. No aggressive appearing osseous lesion. IMPRESSION: Dilated small bowel loops are seen in mid abdomen. Density in the pelvis which may represent a send drainage catheter. /[place] DICTATED BY: TOBI LEAHY MD DATE: 07/29/25 1033 ELECTRONICALLY SIGNED BY: TOBI LEAHY MD DATE: 07/29/25 103 PATIENT: DALLAS BUCHANAN MR#: [id number] : 1970 SEX: F AGE: 55 LOCATION: [facility] ORDER 1519 STATUS: ADM IN REPORT#: [id number] SERVICE 151 REASON: Liver cirrhosis ORDERING PHYSICIAN: LISET DOUGLAS MD PROCEDURE: ABDOMEN - US ABDOMINAL COMPLETE EXAM: US Abdomen complete CLINICAL HISTORY: Liver cirrhosis TECHNIQUE: Real-time ultrasound of the abdomen (complete) with image documentation. COMPARISON: None provided. FINDINGS: LIVER: Liver measures 12.3 cm with a heterogeneous coarse echotexture. GALLBLADDER: Gallbladder contains stones and sludge. Gallbladder is distended. COMMON BILE DUCT: No dilation. PANCREAS: Pancreas not well-visualized due to overlying bowel gas KIDNEYS: Normal renal contours. No renal mass or calculus. No hydronephrosis. SPLEEN: Normal in size and echogenicity. No mass identified. AORTA: No aneurysm. IVC: Unremarkable as visualized. MISCELLANEOUS: Small amount of abdominal ascites. IMPRESSION: 1. Cirrhotic-appearing liver. 2. Cholelithiasis and biliary sludge with gallbladder distension. 3. Small volume ascites. /[place] DICTATED BY: CYNTHIA JULIAN MD DATE: 07/29/25 105 ELECTRONICALLY SIGNED BY: CYNTHIA JULIAN MD DATE: 07/29/25 105 PATIENT: DALLAS BUCHANAN MR#: [id number] : 1970 SEX: F AGE: 55 LOCATION: [facility] ORDER 1108 STATUS: ADM IN REPORT#: [id number] SERVICE 1106 REASON: sob ORDERING PHYSICIAN: PREET BOSTON MD PROCEDURE: CXR1VW - CHEST 1VW CHEST 1VW REASON: sob COMPARISON: Study from 07/21/2025 is available. FINDINGS: Single view of the chest was obtained. Lungs are clear. Heart size is normal. There is no pulmonary vascular congestion. There is a right-sided PIC catheter with tip in superior vena cava. There is a nasogastric tube with the tip in the fundus of the stomach. Mediastinum and bony thorax appear unremarkable. IMPRESSION: 1. No acute cardiopulmonary process 2. The support lines are in satisfactory position.. DICTATED BY: GREER FIORE MD DATE: 07/22/251349 ELECTRONICALLY SIGNED BY: GREER FIORE MD DATE: 07/22/251353 PATIENT: DALLAS BUCHANAN MR#: [id number] : 1970 SEX: F AGE: 55 LOCATION: [facility] ORDER STATUS: ADM IN REPORT#: [id number] SERVICE REASON: PICC LINE ORDERING PHYSICIAN: HEATHER LEACH APRN PROCEDURE: CXR1VW - CHEST 1VW EXAM: CR Chest, single view. CLINICAL HISTORY: PICC line COMPARISON: Prior same day chest radiograph. FINDINGS: Right-sided PICC catheter with tip in the cavoatrial junction. Subsegmental atelectasis in the right lower lobe. No evidence of pleural effusion or pneumothorax. The cardiomediastinal silhouette is within normal limits. No acute osseous abnormality. IMPRESSION: Right-sided PICC catheter with tip in the cavoatrial junction. Subsegmental atelectasis in the right lower lobe. No evidence of pleural effusion or pneumothorax. Compared to the prior study, there is interval placement of the right-sided PICC line and interval resolution of the subsegmental atelectasis in the left lower lobe. /[place] DICTATED BY: ELDON MILLER Jr., MD DATE: 07/21/25816 ELECTRONICALLY SIGNED BY: ELDON MILLER Jr., MD DATE: 07/21/25816 PATIENT: DALLAS BUCHANAN MR#: [id number] : 1970 SEX: F AGE: 55 LOCATION: [facility] ORDER 14 STATUS: REG [facility] REPORT#: [id number] SERVICE 12 REASON: CHEST PAIN/COUGH ORDERING PHYSICIAN: ALHAJI SHINE NP PROCEDURE: CXR1VW - CHEST 1VW EXAM: XR Chest, 1 View. CLINICAL HISTORY: 55 year old female with chest pain and cough. COMPARISON: None provided. FINDINGS: LUNGS: The lungs demonstrate evidence of atelectasis. PLEURAL SPACES: A small right pleural effusion is present. HEART: The heart size is normal. BONES: No acute osseous abnormality. IMPRESSION: 1. Small right pleural effusion and right lung base atelectasis. /[place] DICTATED BY: EDWIGE LEDESMA MD DATE: 07/20/252046 ELECTRONICALLY SIGNED BY: EDWIGE LEDESMA MD DATE: 07/20/252046 PATIENT: DALLAS BUCHANAN MR#: [id number] : 1970 SEX: F AGE: 55 LOCATION: [facility] ORDER 14 STATUS: REG ER REPORT#: [id number] SERVICE 12 REASON: Abdominal Pain ORDERING PHYSICIAN: ALHAJI SHINE NP PROCEDURE: ABD PEL W - CT ABDOMEN/PELVIS W/CONTRAST ADDENDUM REPORT ADDENDUM: Results were shared by telephone at 23:23 pm on 07-20-2025 and acknowledged by Pt nurse Ms. SHIN BOYKIN. /[place] EXAM: CT Abdomen and Pelvis with Intravenous Contrast CLINICAL HISTORY: 55-year-old female with abdominal pain. TECHNIQUE: Axial computed tomography images of the abdomen and pelvis with intravenous contrast. Dose reduction technique was used including one or more of the following: automated exposure control, adjustment of mA and kV according to patient size, and/or iterative reconstruction. CONTRAST: Omnipaque 350, 75 mL COMPARISON: None provided. FINDINGS: LUNG BASES: Atelectasis and scarring at the lung bases. LIVER: Unremarkable. GALLBLADDER AND BILE DUCTS: Tiny gallstone seen. PANCREAS: Unremarkable. SPLEEN: Unremarkable. ADRENAL GLANDS: Unremarkable. KIDNEYS, URETERS, AND BLADDER: Dueñas catheter seen in the bladder lumen. No hydronephrosis or nephrolithiasis. No ureteral calculi. STOMACH AND BOWEL: Edema or loops of small bowel suggesting moderate small bowel enteritis. Free air in the upper abdomen is seen, suggesting perforated bowel. No obstruction. APPENDIX: No CT evidence for appendicitis. PERITONEUM: Moderate ascites in the abdomen and pelvis. No free air under the diaphragm. LYMPH NODES: No lymphadenopathy. REPRODUCTIVE: Unremarkable as visualized. VASCULATURE: No aortic aneurysm. ABDOMINAL WALL AND SOFT TISSUES: There is air in the subcutaneous soft tissue seen anteriorly, suggesting recent postsurgical changes; please correlate with surgical history. BONES: No fracture or suspicious osseous abnormality. IMPRESSION: 1. Moderate small bowel enteritis with free air in the upper abdomen, suggesting perforated bowel versus post surgical changes. No obstruction. 2. Moderate ascites in the abdomen and pelvis. 3. Air in the subcutaneous soft tissue anteriorly, suggesting recent postsurgical changes; please correlate with surgical history. /[place] DICTATED BY: EDWIGE LEDESMA MD DATE: 07/20/25 4167 ELECTRONICALLY SIGNED BY: DATE: EXAM: CT Abdomen and Pelvis with Intravenous Contrast CLINICAL HISTORY: 55-year-old female with abdominal pain. TECHNIQUE: Axial computed tomography images of the abdomen and pelvis with intravenous contrast. Dose reduction technique was used including one or more of the following: automated exposure control, adjustment of mA and kV according to patient size, and/or iterative reconstruction. CONTRAST: Omnipaque 350, 75 mL COMPARISON: None provided. FINDINGS: LUNG BASES: Atelectasis and scarring at the lung bases. LIVER: Unremarkable. GALLBLADDER AND BILE DUCTS: Tiny gallstone seen. PANCREAS: Unremarkable. SPLEEN: Unremarkable. ADRENAL GLANDS: Unremarkable. KIDNEYS, URETERS, AND BLADDER: Dueñas catheter seen in the bladder lumen. No hydronephrosis or nephrolithiasis. No ureteral calculi. STOMACH AND BOWEL: Edema or loops of small bowel suggesting moderate small bowel enteritis. Free air in the upper abdomen is seen, suggesting perforated bowel. No obstruction. APPENDIX: No CT evidence for appendicitis. PERITONEUM: Moderate ascites in the abdomen and pelvis. No free air under the diaphragm. LYMPH NODES: No lymphadenopathy. REPRODUCTIVE: Unremarkable as visualized. VASCULATURE: No aortic aneurysm. ABDOMINAL WALL AND SOFT TISSUES: There is air in the subcutaneous soft tissue seen anteriorly, suggesting recent postsurgical changes; please correlate with surgical history. BONES: No fracture or suspicious osseous abnormality. IMPRESSION: 1. Moderate small bowel enteritis with free air in the upper abdomen, suggesting perforated bowel versus post surgical changes. No obstruction. 2. Moderate ascites in the abdomen and pelvis. 3. Air in the subcutaneous soft tissue anteriorly, suggesting recent postsurgical changes; please correlate with surgical history. /[place] DICTATED BY: EDWIGE LEDESMA MD DATE: 07/20/252317 ELECTRONICALLY SIGNED BY: EDWIGE LEDESMA MD DATE: 07/20/252317 ASSESSMENT: Acute kidney injury Bacterial peritonitis Cholelithiasis 2 mm perforation of the colonic anastomosis Anastomosis leak Bilious peritonitis S/p Diagnostic laparoscopy, abdominal washout, drain placement and diverting loop ileostomy creation Atrophic vaginitis Anemia Diabetes Mellitus Type 2 Septic Shock Cirrhosis of liver Oesophageal Varices PLAN: Labs, diagnostic, radiologic exams reviewed and interpreted by myself and supervising physician. We have reviewed external records in detail Follow surgery recommendations Require close monitoring of renal function and electrolytes Order CBC, CMP, and electrolytes in am Continue with antibiotics BiPAP as necessary, for respiratory distress Monitor blood pressure adjust medication doses as needed Avoid hypotensive episodes May use Dilaudid 0.5 mg IV every 6 hours as needed for severe pain Monitor blood sugars Strict intake, output, and daily weight should be monitored Please renally adjust medications Avoid nephrotoxic and nonsteroidal drugs Avoid contrast if possible Will continue to monitor renal function, anemia, electrolytes Treatment plan discussed with patient Questions were answered We have discussed with the other team physicians in detail about the care plan We will continue to monitor the patient closely ATTESTATION BY PHYSICIAN I have seen and examined the patient. I reviewed the documentation, medical decision making, and treatment plan as noted by the mid-level provider above. I agree with the findings and plan of care. CIELO PORTILLO MD, [facility] Aug 07, 2025 09:45
[2025-08-07 12:00] VITALS: BP 113/64; PULSE 83; RESP 16; TEMP 98.3
[2025-08-07] MEDS: HYDROcodone/APAP 5/325 1 TAB TABLET PO PRN (12:31)
--- NOTE | 2025-08-07 15:00 | PN ---
This is a 55-year-old female several weeks status post partial colectomy and subsequent washout and drain placement with diverting ileostomy. Patient reports she continues to have bilateral flank pain. Percutaneous cholecystostomy tube is putting out almost nothing. Last CT scan showed a fluid collection over by the spleen. Patient also reports that her narcotic fell off in her pain is not well controlled. Plan to restore Ulysses every 4 hours. We will consult IR for aspiration and possible drain placement of the left upper quadrant fluid collection. I would also like them to evaluate the cholecystostomy tube to make sure it is in correct position. Surgery will follow. Vitals/Labs Vital Signs Date Time Temp Pulse Resp B/P (MAP) Pulse Ox O2 Delivery O2 Flow Rate FiO2 08/07/25 12:00 98.2 83 16 113/64 95 Room Air 08/06/25 20:00 0 21 Laboratory Tests 08/07/25 04:27 JARED ACOSTA DO Aug 07, 2025 15:00
[2025-08-07 16:00] VITALS: BP 102/60; PULSE 85; RESP 16; TEMP 97.9
--- NOTE | 2025-08-07 19:05 | PN ---
[facility] PROGRESS NOTE Date of Service: Aug 07, 2025 Time of Service: 18:51 SUBJECTIVE: Ms. Gray is a 55-year-old female that was seen and examined today on 07/20/2025. Patient reports that she came to the emergency department with a chief complaint of abdominal pain. Onset was 07/09/2025. Location is all four quadrants. Duration is constant. Character is described as pressure and " like I have a lot of gas trapped. " there was no alleviating factors. There was no aggravating factors. Patient reports associated abdominal swelling. 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 After the discharge she was taking pain medications and her condition started worsening after few days. She is in constant follow up with Dr Gann. Today in the emergency department WBCs 21.2, left shift neutrophils 85.5%, BUN 26, creatinine 3.1, GFR 17, lactic acid 8.0, no urinalysis has been collected or sent to lab, CT of abdomen and pelvis showed of free air in the abdomen which could be a suspected bowel perforation versus postsurgical changes, moderate ascites, fissure post surgical changes. Chest x-ray shows right pleural effusion. Additionally patient had a heart rate of 125, respirations 26, together with leukocytosis and lactic acidosis patient met clinical sepsis criteria additionally patient's blood pressure dropped to 85/50 mmHg requiring vasopressor support therefore meeting criteria for septic shock. Patient will be admitted to the intensive care unit. Emergency room physician spoke with patient's surgeon, Dr. Gann who requested patient be admitted under hospitalist service and she will follow this case along. 07/21/25 Patient was evaluated at the bedside. She was accompanied by her daughter. She is oriented to the time, place and person. She complained of abdominal pain in all the quadrants. She hasn't had bowel movement since Saturday and also is unable to pass flatus at this time. She has guarding, rigidity and tenderness all over the abdomen, showing the signs of peritonitis. She was seen by Dr Gann this alba and is planned to be taken to OR this afternoon. Dueñas catheter is in place, as she wasn't able to pass the urine. There is no fever, chills and any other signs of infection. 07/22/25 Patient was evaluated at the bedside. She was accompanied by her daughter. She is oriented to the time, place and person. She underwent Diagnostic laparoscopy, abdominal washout, drain placement and diverting loop ileostomy creation, The procedure revealed Bilious peritonitis, 2 mm perforation of the colonic anastomosis. She is hemodynamically stable with Blood pressure of 110/73 and HR of 83. Currently she complains of abdominal pain which is getting better than yesterday, its 3-4/10 intensity. There is no rigidity. She is anxious about the outcomes and had discussion regarding her current clinical status and lab parameters. There is no fever, chills and any other signs of infection. 07/23/25 Patient was evaluated at the bedside. She was accompanied by her daughter. She is oriented to the time, place and person. She status post diagnostic laparoscopy, abdominal washout, drain placement and diverting loop ileostomy creation. Currently she complains of abdominal pain which is 5/10 intensity. She also complaints of mild lower back pain There is no fever, chills and any other signs of infection. She has CHRIS drain in-situ with clear fluid along with colostomy bag. She is currently tolerating clear liquid diet. 07/24/2025 Patient is seen and examined at the bedside. Vitals blood pressure ranging in 100s/50s, pulse rate 50s, SpO2 greater than 95% on room air. She mentions about experiencing pressure-like discomfort on the right side of the abdomen and pain when she tries to eat. No acute events last night. She denies fever, chills, nausea, vomiting, chest pain. CHRIS output approximately 100cc/hr, serosanguineous fluid. Ileostomy bag in place. She is tolerating clear liquid diet without any nausea/vomiting. Labs hemoglobin 9.8, BUN 38, creatinine improved from 1.6-1.1. 07/25/2025 Patient is seen and examined at the bedside. She complains of abdominal pain which is 7/10 in intensity. No acute events last night. She denies fever, chills, nausea, vomiting, chest pain. CHRIS output approximately 100cc/hr, serosanguineous fluid. Ileostomy bag in place. The patient has been started on spironolactone 25mg BID and Lasix 20 mg once daily. There is high output from CHRIS but it is clear serous, most likely related to her ascites from her history of liver cirrhosis. She is tolerating clear liquid diet without any nausea/vomiting. 07/26/2025 Patient is seen and examined at the bedside. She complains of abdominal pain which remains constant. No acute events last night. She denies fever, chills, nausea, vomiting, chest pain. Patient is status post with a CHRIS drain. The drain has been collecting the serosanguineous fluid secondary to ascites. She has been tolerating liquid diet and her diet has been advanced to soft diet. She still has bloating for which probiotics and fibers has been recommended. Hemoglobin has gradually trended down to 9.2 and was given IV Venofer. Patient to get up and ambulate and work with physical therapy. 07/27/2025 Patient is seen and examined at the bedside. She complains of abdominal pain which is 6/10 in intensity. No acute events last night. She denies fever, chills, nausea, vomiting, chest pain. Patient is unable to tolerate the soft diet, hence she is currently receiving the liquid diets. The CHRIS drain output is still high and there was small amount of drainage observed in the right ileostomy. 07/28/2025 Patient is seen and examined at the bedside. She complains of abdominal pain which is 9/10 in intensity. No acute events last night. She denies fever, chills, nausea, vomiting, chest pain. Patient reported pain after eating but no nausea or vomiting. WBC is gradually trending up from 8.3-7.3-11.1-11.8. She had lidocaine patch placed this morning. She was started on simethicone 80 mg yesterday. Pertinent she is currently receiving Dilaudid 0.5 mg. Abdominal ultrasound has been ordered for further assessment. 07/29/2025 Patient is seen and examined at the bedside. She continues to complain of severe abdominal pain, rated 9/10 in intensity, unchanged from prior. She is currently receiving Dilaudid 0.5 mg for pain. She reports discomfort related to Dueñas catheterization. She denies fever, chest pain, nausea or vomiting at this time. No acute events were reported overnight. Blood pressure noted today is noted to be 98/54 mm Hg which is slightly low. Per surgery team, stoma is likely to be removed today. Hemoglobin has trended down from 9.7 g/dl to 9.0 g/dl. 07/30/2025 Patient is seen and examined at the bedside. She continues to complain of severe abdominal pain. Her abdominal distention has slightly improved. Dueñas's catheter was removed due to persistent discomfort. We will continue with scheduled removal of the ascites fluid and from CHRIS bulb. Ultrasound of abdomen was concerning for cholelithiasis with biliary sludge and gallbladder distention. HIDA scan was performed today. If consistent with cholecystitis patient will need cholecystostomy tube placement. 07/31/2025 Patient is seen and examined at the bedside. She was accompanied by her daughter. She continues to complain of severe abdominal pain. She is currently on Dilaudid 0.5mg Q4H PRN, which relieves the symptoms for 2-3 hours, after that she develops same level of pain and discomfort again. Currently awaiting the HIDA scan results. Her sodium level is 133 and albumin level is trending downwards from 2.3 to 2.1. Her Iron panel results showed: Iron 20L, TIBC 147L and %sat 16.3L. For her continuos pain she is started on Fentanyl 25mcg. CHRIS drain culture has beens sent. Based on the results of HIDA scan, CT chest will be planned. 08/01/2025: Patient is seen and examined this morning at bedside. She was accompanied by her daughter. The patient complains of severe abdominal pain. She is currently being managed with [place], and Dilaudid for breakthrough pain. HIDA scan results are back, and show acute cholecystitis. Surgery has been made aware of the results. IR has been consulted for cholecystostomy tube placement. The patient will be started on PPN, as recommended by general surgery. The patient follows with Dr. Sol outpatient for her liver cirrhosis. The patients daughter would like her contact center analyst Dr. Sol to be involved in the patients care, and be updated with her status. 08/02/2025: Patient is seen and evaluated in the room 432. She was accompanied by her daughter. She complains of severe abdominal pain. She also complained of bleeding through her vagina, pink tinged urine. Her vitals are in the normal range. Her labs are in the normal range except for Hb is 8.6, Na is 135, K is 5.2, BUN is 4, Glucose is 150, CRP is 103.90. She went for placement of cholecystectomy tube by IR. We did a pelvic exam and ordered a vaginal estrogen cream and urinalysis. Also for her hyperkalemia we checked the potassium again and its 4.1. So we will repeat the labs tomorrow. We ordered a dose of albumin for her. 08/03/2025: Patient is seen and evaluated in the room 432. She has mild abdominal pain today. Her pain improved after the placement for cholecystotomy tube. Her vitals are in the normal range. Her labs are normal except for hemoglobin 8.2, glucose 156, CRP 89.8. Her aerobic and anaerobic culture of drain showed no growth. Gastroenterology saw the patient and they recommended 25 grams of 25% IV albumin q12H for 3 days. Her bleeding through the vagina decreased. The drainage through the left abdomen is 100ml, right abdomen is 20ml, left anterior abdomen 5ml. 08/04/2025: Patient is seen and evaluated in the room 432. She has abdominal pain today. Her vitals are in the normal range. Her labs are normal except for Hb is 8, CRP is 72.10, glucose is 130. Aerobic and anaerobic drain culture showed no growth. She is not able to tolerate her food. The drainage through the left abdomen is 100ml, right abdomen is 20ml, left anterior abdomen 5ml. Gastroenterology is planning to do EGD tomorrow. Surgery wanted to do a CT abdomen and pelvis with IV contrast. CT scan showed perisplenic and infrasplenic fluid collection measuring 6.0 x 6.1 x 8.9 cm, splenomegaly, with spleen measuring 15.2 cm, cholecystostomy tube in situ with decompressed gallbladder, abdominal drain in situ with tip in the pelvis. We ordered T.bilirubin and we will monitor the output from colostomy tube. We are also planning to add metoclopramide. 08/05/2025: Patient is seen and evaluated in the room 432. She has abdominal pain today. Her abdomen is tender to touch and warm. Her vital signs are in the normal range except for BP is 117/45. Her labs are normal except for Hb is 8.2, sodium is 135, creatinine is 0.3, CRP is 60.9 The drain output from left abdomen is 40ml, left anterior abdomen 0ml, right abdomen 0ml. Her saturation is 100% on 10L of O2. Her labs are in the normal range except for Hb is 8.2, HCT is 25.9, sodium is 135, glucose is 107, CRP is 60.90. She underwent endoscopy today and they did biopsy from 3 sites. GI said that they will consult radiology to check whether CHRIS drain and cholecystostomy tube are in place. General surgery will consult IR to evaluate perisplenic fluid collection for potential aspiration. 08/06/2025: Patient is seen and evaluated in the room 432. She has abdominal pain today. Her abdomen is tender to touch and warm. Her vital signs are in the normal range except for 97/63. Her labs are in the normal range except for Hb is 8.1, sodium is 135, blood glucose is 151, CRP 53.60. We are waiting for IR consult for evaluation and for potential aspiration of perisplenic fluid. The drain output from right abdomen is 20ml. 08/07/2025: Patient is seen and evaluated in the room 432. She has abdominal pain today. Her abdomen is tender to touch and warm. Her vital signs are in the normal range except for blood pressure which is 102/60. Her labs are in the normal range except for Hb is 8.5, WBC is 4.4, RDW is 17.3, sodium is 134, gl ucose is 147. We are waiting for IR consult for evaluation and for potential aspiration of perisplenic fluid. The drain output from right abdomen is 20ml. The ADVICE NURSE told me that she eats her food after taking her pain medications. Nurse is planning to start full liquid diet for lunch. REVIEW OF SYSTEMS CONSTITUTIONAL: No fever, chills, or night sweats. NEUROLOGICAL: Denies headache, sensory and motor deficit. CARDIOVASCULAR: Denies any exertional angina, dyspnea on exertion, palpitations. PULMONARY: Denies any shortness of breath, cough, phlegm/sputum, hemoptysis, pleuritic chest pain. GASTROINTESTINAL: Patient complains of diffuse abdominal pain. She also has bloating. Denies nausea, vomiting. GENITOURINARY: Denies frequency, urgency, nocturia, hematuria or incontinence. PHYSICAL EXAM GENERAL APPEARANCE: The patient is alert, awake and oriented and bedbound. NEUROLOGICAL: No sensory and motor deficits. CHEST: Normal chest expansion. LUNGS: Normal Vesicular breath sound. Absence of any rales, rhonchi or any wheezing. CARDIOVASCULAR: Regular. S1 and S2 normal. No appreciable rubs, murmurs or gallops. ABDOMEN: Abdomen is soft and slightly tender. CHRIS drain is placed. Ileostomy creation. Cholecystostomy tube is placed. Absence of guarding, rigidity and rebound tenderness. GENITOURINARY: No suprapubic tenderness. No costovertebral angle tenderness. Vital Signs (last 8hr) Date Time Temp Pulse Resp B/P (MAP) Pulse Ox O2 Delivery O2 Flow Rate FiO2 08/07/25 16:00 97.9 85 16 102/60 97 Room Air 08/07/25 12:00 98.2 83 16 113/64 95 Room Air LABS: Laboratory: Test 08/07/25 16:07 08/07/25 04:27 08/06/25 04:20 Range/Units Whole Blood Glucose 147 H 70-110 MG/DL Bedside Glucose Comment Notified Nurse White Blood Count 4.4 L 4.8-10.8 K/uL Red Blood Count 2.89 L 4.00-5.50 MIL/uL Hemoglobin 8.5 L 12.0-16.0 g/dL Hematocrit 27.1 L 36-48 % Mean Corpuscular Volume 93.8 79-99 fL Mean Corpuscular Hemoglobin 29.4 27.0-33.0 pg Mean Corpuscular Hemoglobin Concent 31.4 L 32.0-36.0 g/dL Red Cell Distribution Width 17.3 H 11.0-15.5 % Platelet Count 133 130-400 K/uL Mean Platelet Volume 9.5 7.5-10.5 fL Nucleated Red Blood Cells 0.0 0.0-0.19 % Sodium Level 134 L 136-145 mmol/L Potassium Level 4.2 3.5-5.1 mmol/L Chloride Level 104 101-111 mmol/L Carbon Dioxide Level 22 21-32 mmol/L Blood Urea Nitrogen 12 7-18 mg/dL Creatinine 0.4 L 0.5-1.0 mg/dL Glomerular Filtration Rate Calc 115 >90 mL/min Random Glucose 126 H 70-105 mg/dL Total Calcium 8.5 8.5-10.1 mg/dL Phosphorus Level 2.7 2.5-4.9 mg/dL Magnesium Level 1.90 1.80-2.40 mg/dL C-Reactive Protein, Quantitative 53.60 H 0.5-3.0 mg/L Current Medications Medications (Trade) Dose Ordered Sig/Gregory Route PRN Reason Start Time Stop Time Status Last Admin Dose Admin Acetaminophen (TYLenol 500MG TAB) 500 mg Q6H6 PRN PO MILD PAIN (1-3) 07/27/25 16:30 08/07/25 12:15 DC Acetaminophen (TYLenol 500MG TAB) 500 mg Q6H6 PRN PO MILD PAIN (1-3) 08/07/25 10:00 08/07/25 10:03 DC Acetaminophen (TYLenol 650MG SUPPOSITORY) 650 mg Q6H PRN RC MILD PAIN (1-3) 07/21/25 00:00 07/27/25 16:22 DC Acetaminophen/ Hydrocodone Bitart (NORco 5/325MG) 1 tab Q4H PRN PO MODERATE PAIN (4-6) 07/31/25 16:30 08/05/25 16:29 DC 08/05/25 14:57 1 TAB Acetaminophen/ Hydrocodone Bitart (NORco 5/325MG) 1 tab Q4H PRN PO MODERATE PAIN (4-6) 08/07/25 12:30 08/12/25 12:29 08/07/25 12:31 1 TAB Albumin Human 50 ml @ 100 mls/hr Q12H IV 08/02/25 21:30 08/05/25 09:59 DC 08/05/25 10:12 100 MLS/HR Albumin Human 50 ml @ 0 mls/hr Q12H IV 08/02/25 18:30 08/02/25 20:04 DC Albumin Human 100 ml @ 0 mls/hr ONCE IV 07/25/25 12:00 07/26/25 11:59 DC 07/25/25 13:43 100 MLS/HR Clotrimazole (Lotrimin) 1 GM BID TP 07/29/25 21:00 08/28/25 20:59 08/07/25 12:03 1 GM Cyclobenzaprine HCl (Cyclobenzaprine HCl) 5 mg TID PO 07/25/25 14:00 07/26/25 14:00 DC 07/26/25 14:19 5 MG Fentanyl (DURAgesic 25 MCG/HR PATCH) 25 mcg Q72H TD 07/31/25 14:30 07/31/25 14:44 DC Fluconazole/ Sodium Chloride (DiFLUCan 200 MG/ NS 100 ML) 200 mg Q24H IVPB 07/21/25 21:00 08/20/25 20:59 08/06/25 19:32 200 MG Furosemide (LASix 20MG TAB) 20 mg DAILY PO 07/25/25 11:00 08/02/25 11:53 DC 08/02/25 09:42 20 MG Gabapentin (NEURontin 100 mg CAP) 100 mg TID PO 07/29/25 14:00 08/02/25 09:21 DC 08/01/25 20:14 100 MG Hydromorphone HCl (DiLAUDid 0.5MG INJ) 0.5 mg Q4H PRN IVP SEVERE PAIN (7-10) 07/24/25 10:00 07/29/25 09:59 DC 07/29/25 08:22 0.5 MG Hydromorphone HCl (DiLAUDid 0.5MG INJ) 0.5 mg Q4H PRN IVP SEVERE PAIN (7-10) 07/29/25 13:30 08/03/25 13:29 DC 08/03/25 13:09 0.5 MG Hydromorphone HCl (DiLAUDid 0.5MG INJ) 0.5 mg Q4H PRN IVP SEVERE PAIN (7-10) 08/03/25 18:00 08/07/25 10:03 DC 08/07/25 05:09 0.5 MG Hydromorphone HCl (DiLAUDid 0.5MG INJ) 0.5 mg Q4H PRN IVP SEVERE PAIN (7-10) 08/07/25 10:00 08/12/25 09:59 08/07/25 16:43 0.5 MG Insulin Human Regular (humuLIN R 100 UNIT/ML 3ML) INSULIN SLIDING SCAL... ACHS SQ 07/21/25 07:30 08/20/25 07:29 07/22/25 20:40 3 UNIT Lactated Ringer's 1,000 ml @ 75 mls/hr [id number] IV 07/21/25 00:00 07/21/25 13:17 DC 07/21/25 02:57 75 MLS/HR Lactated Ringer's 1,000 ml @ 75 mls/hr [id number] IV 07/21/25 13:30 07/24/25 11:09 DC 07/24/25 09:27 75 MLS/HR Lactobacillus Rhamnosus ([facility] [employer]) 1 each DAILY20 PO 07/26/25 20:00 08/25/25 19:59 08/06/25 19:31 1 EACH Lidocaine (Lidoderm Patch 5%) 1 patch DAILY TP 07/28/25 09:00 08/27/25 08:59 08/07/25 09:20 1 PATCH Lidocaine HCl/Al Hydroxide/Mg Hydroxide/ Dicyclomine HCl 20ML OR AD ONCE PO 08/06/25 16:30 08/07/25 16:29 DC 08/06/25 16:45 20 ML Magnesium Sulfate 50 ml @ 0 mls/hr PROTOCOL PRN IV MAGNESIUM PROTOCOL 07/21/25 07:00 08/20/25 06:59 08/01/25 06:05 25 MLS/HR Metoclopramide HCl (regLAN 10MG IV) 5 mg BID IVP 08/04/25 21:00 09/03/25 20:59 08/07/25 09:20 5 MG Metronidazole/ Sodium Chloride (flaGYL) 500 mg Q8H IV 07/21/25 14:00 07/21/25 13:40 DC Morphine Sulfate (morPHINE 2MG SYG) 2 mg Q4H PRN IVP SEVERE PAIN (7-10) 07/21/25 00:30 07/21/25 13:18 DC 07/21/25 04:46 2 MG Morphine Sulfate (morPHINE 4MG SYG) 4 mg Q3H PRN IV MODERATE PAIN (4-6) 07/21/25 13:30 07/26/25 16:29 DC 07/26/25 10:51 4 MG Norepinephrine 250 ml @ 0 mls/hr PROTOCOL IV 07/20/25 23:30 08/03/25 08:27 DC 07/21/25 10:56 18.45 MLS/HR Ondansetron HCl (zoFRAN 4MG INJ) 4 mg Q4H PRN IVP NAUSEA 07/21/25 13:30 08/20/25 13:29 Ondansetron HCl (zoFRAN 4MG INJ) 4 mg Q6H PRN IV NAUSEA/VOMITING 07/21/25 00:00 07/21/25 13:18 DC Pantoprazole Sodium (PROTonix 40MG INJ) 40 mg BID IV 07/26/25 21:00 08/20/25 08:59 08/07/25 09:20 40 MG Pantoprazole Sodium (PROTonix 40MG INJ) 40 mg BID IVP 08/05/25 21:00 08/06/25 08:39 DC 08/05/25 20:25 40 MG Pantoprazole Sodium (PROTonix 40MG INJ) 40 mg DAILY IV 07/21/25 09:00 07/26/25 09:31 DC 07/26/25 08:55 40 MG Pharmacy Profile Note (Pharmacy Communication) 1 each ONCE MISC 07/21/25 15:30 07/21/25 15:16 DC Pharmacy Profile Note (Pharmacy Communication) 1 each ONCE MISC 08/06/25 16:00 08/07/25 07:07 DC Piperacillin Sod/ Tazobactam Sod 50 ml @ 200 mls/hr ONCE STAT IVPB 07/20/25 19:15 07/20/25 19:29 DC 07/20/25 20:32 200 MLS/HR Piperacillin Sod/ Tazobactam Sod (Zosyn 3.375gm+NS 50ml) 3.375 gm Q12H IV 07/21/25 00:00 07/31/25 00:00 DC 07/30/25 23:55 3.375 GM Piperacillin Sod/ Tazobactam Sod (Zosyn 3.375gm+NS 50ml) 3.375 gm Q8H IVPB 07/31/25 11:30 08/10/25 11:29 08/07/25 12:03 3.375 GM Potassium Chloride 100 ml @ 100 mls/hr AD PRN IV POTASSIUM PROTOCOL 07/24/25 08:30 08/23/25 08:29 07/30/25 06:23 100 MLS/HR Potassium Chloride (K-Dur/Klor-Con 20meq) 20 meq AD PRN PO POTASSIUM PROTOCOL 07/24/25 08:30 08/23/25 08:29 07/27/25 20:33 20 MEQ Potassium Chloride (KCl 10% Elixir 20meq/15ml) 20 meq AD PRN PO POTASSIUM PROTOCOL 07/24/25 08:30 08/23/25 08:29 07/31/25 08:15 20 MEQ Psyllium Hydrophilic Mucilloid (Metamucil) 1 tbs BID PO 07/26/25 21:00 08/25/25 20:59 10/4/25 09:20 1 TBS Simethicone (Mylicon) 80 mg Q6H6 PO 07/27/25 12:00 08/26/25 11:59 08/07/25 18:25 80 MG Sodium Bicarbonate 150 meq/Sodium Chloride 1,150 ml @ 0 mls/hr Q0M IVP 07/21/25 14:00 07/26/25 09:31 DC Sodium Chloride (NS 50ml) 50 ml AD IV 07/31/25 11:30 07/31/25 11:12 DC Spironolactone (Aldactone 25mg) 25 mg BID PO 07/25/25 21:00 07/26/25 09:01 DC 07/26/25 08:56 25 MG Sucralfate (Carafate) 1 gm ACHS PO 07/29/25 21:00 08/28/25 20:59 08/07/25 16:27 1 GM Thiamine HCl (Vitamin B-1) 100 mg DAILY IVP 07/22/25 21:00 08/21/25 20:59 08/07/25 09:20 100 MG Thiamine HCl 100 mg/Sodium Chloride 50 ml @ 100 mls/hr Q24H IM 07/21/25 15:30 07/21/25 16:25 DC Vancomycin HCl (Vancomycin 1g/ 250ml Kit) 1 gm ONCE STAT IV 07/20/25 21:23 07/20/25 21:26 DC 07/20/25 22:06 1 GM Vasopressin 20 units/Sodium Chloride 100 ml @ 0 mls/hr PROTOCOL IV 07/21/25 00:30 08/03/25 08:27 DC 07/21/25 00:10 9 MLS/HR DIAGNOSTICS / RADIOLOGY: [ ] ASSESSMENT: Suspected Bowel Perforation POA Perisplenic and infrasplenic fluid collection with splenomegaly Hyponatremia Bacterial peritonitis Cholelithiasis Small Bowel Obstruction, Suspected Anastomotic Leak Bilious peritonitis s/p Diagnostic laparoscopy, abdominal washout, drain placement and diverting loop ileostomy creation Atrophic vaginitis hyperkalemia Iron Deficiency anemia Diabetes Mellitus Type 2 POA Acute Kidney Injury POA Septic Shock POA Cirrhosis of liver POA Esophageal Varices Recent Robotic takedown of splenic flexure mobilization, robotic takedown of colovesical fistula with sigmoid colectomy and end-to-end anastomosis surgery PLAN: Bilious peritonitis status post Diagnostic laparoscopy, abdominal washout, drain placement and diverting loop ileostomy creation -Continue close monitoring of the patient -continue physical therapy -Monitor CHRIS drain output -Continues with high output from CHRIS but it is clear serous, most likely related to her ascites from her history of liver cirrhosis -Continue Lactated Ringer's at 75 ml/hr for volume resuscitation and electrolyte replacement -continue Zosyn [day 18] and fluconazole [day 18] -Flexeril 5 mg t.i.d. has been started by the Surgery team. -Probiotics and Fibers have been added for bloating. -Protonix IV increased to twice daily. - Patient has been started on [place] by general surgery for abdominal pain, and is advised to take Diluadid only for breakthrough pain. -HIDA scan positive for acute cholecystitis. Surgery has been made aware. - IR did a Fluoroscopy and ultrasound-guided placement of cholecystotomy tube and cholecystogram on 08/02/2025. -Dr. Sol saw the patient and he recommended 25g of 25% albumin for 3 days. -Gastroenterology is planning to do EGD and they did biopsy from 3 sites. GI said that they will consult radiology to check whether CHRIS drain and cholecystostomy tube are in place. -Surgery wanted to do a CT abdomen and pelvis with IV contrast. CT scan showed perisplenic and infrasplenic fluid collection measuring 6.0 x 6.1 x 8.9 cm, splenomegaly, with spleen measuring 15.2 cm, cholecystostomy tube in situ with decompressed gallbladder, abdominal drain in situ with tip in the pelvis. -GI said that they will consult radiology to check whether CHRIS drain and cholecystostomy tube are in place. -We ordered T.bilirubin and we will monitor the output from colostomy tube. -We are also planning to add metoclopramide. -Currently she is on PPN. Perisplenic and infrasplenic fluid collection with splenomegaly * CT scan showed perisplenic and infrasplenic fluid collection measuring 6.0 x 6.1 x 8.9 cm, splenomegaly, with spleen measuring 15.2 cm * General surgery will consult IR to evaluate perisplenic fluid collection for potential aspiration. Hyponatremia * Today her sodium level is 134. * Will repeat her labs tomorrow. Bacterial Peritonitis * Post Surgical patient with Bacterial peritonitis positive for ESBL * Culture and sensitivity shows susceptibility to Zosyn, Gentamicin and Meropenem. * Likely secondary to post-operative intraabdominal infection with risk of ongoing contamination. * Currently patient is on Zosyn (Day 18) * For her continuos pain she is started on Fentanyl 25mcg. CHRIS drain culture has beens sent. Cholelithiasis * Patient complained of upper abdominal pain * Ultrasound abdomen showed: Cirrhotic-appearing liver * Cholelithiasis and biliary sludge with gallbladder distension and Small volume ascites. * Hida scan shows acute cholecystitis. * Per Surgery: IR to be consulted for cholecystostomy tube placement. * IR did a Fluoroscopy and ultrasound-guided placement of cholecystotomy tube an d cholecystogram on 08/02/2025. Small Bowel Obstruction, Suspected * Patient complaints of abdominal pain which is 07/14 on intensity * Abdominal Xray showed: Dilated small bowel loops are seen in mid abdomen * Perform Serial abdominal exams * Pain management(avoid excess opioids if ileus is suspected) * Evaluate drain, bowel status * Monitor for resolution vs progression of Ileus/obstruction. 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 - CT abdominal pelvis w/contrast done on 07/20/2025 showed Free air in the upper abdomen is seen, suggesting perforated bowel vs post surgical changes. No obstruction. -underwent Diagnostic laparoscopy, abdominal washout, drain placement and diverting loop ileostomy creation for biliary peritonitis Atrophic vaginitis * Her bleeding is resolved * We did a pelvic examination. * Ordered topical estrogen. * Urinalysis showed cloudy urine, protein 30, trace occult blood, RBC is 11 to 25, WBC is 26 to 50. hyperkalemia * Today his potassium is 4.2 * Will repeat her labs tomorrow. Iron Deficiency anemia * Hemoglobin today is 8.5. * Iron sucrose (venofer) has been ordered. * Anemia panel has been ordered. Results showed Iron 24L, %sat 16.3 and TIBC 147L. 07/30/25 * Recommend trending Hgb and transfuse as needed to goal Hgb >7. * Plan to initiate the patient on Venofer, her last dose of Venofer was 200 mg on 07/26/2025 * Iron level is 20L, % saturation 11.9, TIBC 167L, Ferritin 129. 9/ Septic Shock -resolved -Her WBC is 4.4 today. 08/07/2025 -Her WBC during the presentation was 21.2 -lactic acid is 1.5 on 07/31/2025 -blood and urine culture results are negative Acute Kidney Injury Resolved -Creatinine improved from 1.6-1.1-0.7-0.6-0.6-0.6-0.6-0.6-0.5-0.6-0.6- 0.5-0.5-0.3-0.6-0.4. 08/07/2025 -Initial FeNA is 0.1 %, probably secondary to dehydration and NSAIDs overuse. -initial Urine sodium is < 13 and urine creatinine is 132.17. -Avoid nephrotoxic agents, eg. NSAIDS. -Weight patient daily. -Monitor intake and output. -Ordered urinalysis Cirrhosis of liver -Patient has a past history of cirrhosis of liver. - Liver functions are within normal limits. AST 20, ALT 9 and ALP 67. - Avoid NSAIDs and high dose acetaminophen. -Maintain appropriate volume of the patient. -Patient has been started on Spironolactone 25 mg b.i.d. and Lasix 20 mg once daily. 07/25/25 -Albumin is given today for the hypotension. -Patients family is requesting that Dr. Sol be involved in the patients care. Supportive measures -Maintain IV fluids, correct electrolytes -Serial abdominal exams -R D Manager on avoidance of NSAIDS and other related triggers. -Monitor Vitals and perform morning labs regularly Continue GI prophylaxis with Pantop Continue DVT prophylaxis with SCDs, we will avoid heparin due to history of allergies to porcine, we will coordinate with surgery consult on initiation of other anticoagulants ATTESTATION BY PHYSICIAN I have seen and examined the patient. I reviewed the documentation, medical decision making, and treatment plan as noted by the resident provider above. I agree with the findings and plan of care. Denzel Coello IV, MD, AKSHAY MD Aug 07, 2025 19:05
[2025-08-07 21:45] VITALS: BP 107/49; PULSE 88; RESP 17; TEMP 98.6
[2025-08-08] VITALS (8 sets, daily range): BP systolic 96–111; BP diastolic 46–71; PULSE 80–87; RESP 17–18; TEMP 97.7–98.6; O2SAT 92–96
[2025-08-08 04:11] LABS: NUCLEATED RED BLOOD CELLS 0.0 % (0.0-0.19); PLATELET COUNT (AUTO) 145.0 K/uL (130-400); RED BLOOD CELL COUNT(AUTO) 3.06 MIL/uL (4.00-5.50); RED CELL DISTRIBUTION WIDTH 17.7 % (11.0-15.5); WHITE BLOOD COUNT (AUTO) 4.8 K/uL (4.8-10.8)
[2025-08-08 04:46] LABS: CREATININE 0.5 mg/dL (0.5-1.0); GLOMERULAR FILTR. RATE CALC 109.0 mL/min (>90); GLUCOSE,RANDOM 126.0 mg/dL (70-105); SODIUM SERUM 135.0 mmol/L (136-145); UREA NITROGEN, BLOOD 15.0 mg/dL (7-18)
[2025-08-08] MEDS ORDERED: [UNRECOGNIZED DRUG - NUTRITION] IV ONE (05:00)
[2025-08-08] MEDS: [UNRECOGNIZED DRUG - NUTRITION] IV ONE (05:51)
--- NOTE | 2025-08-08 10:27 | PN ---
NEPHROLOGY PROGRESS NOTE Date/Time Patient Seen: Aug 08, 2025 SUBJECTIVE: This is a 55-year-old female with a past medical history of diabetes mellitus type 2, liver cirrhosis, esophageal varices. He presented to the emergency room with chief complain of abdominal pain. CT of the abdomen showed moderate small bowel enteritis with free air in the upper abdomen, suggesting perforated bowel versus post surgical changes. No obst ruction. S/p diagnostic laparoscopy, abdominal washout, drain placement and diverting loop ileostomy creation with CHRIS drain 10 Citizen Of [place] on 07/21 S/P fluoroscopy and ultrasound-guided placement of cholecystotomy tube and cholecystogram. Surgery has ordered to check placement of cholecystostomy tube and aspiration of perisplenic fluid by IR She was noted to have elevated BUN/creatinine We are consulted for renal failure Renal function and electrolytes are stable. She was seen in the medial floor, in no acute distress No family at the bedside REVIEW OF SYSTEMS: GENERAL: Positive for abdominal pain and nausea NEUROLOGIC: Negative for any blurry vision, blind spots, double vision, facial asymmetry, dysphagia, dysarthria, hemiparesis, hemisensory deficits, vertigo, ataxia. HEENT: Negative for any head trauma, neck trauma, neck stiffness, photophobia, phonophobia, sinusitis, rhinitis. CARDIAC: Negative for any chest pain, dyspnea on exertion, paroxysmal nocturnal dyspnea, peripheral edema. PULMONARY: Negative for any shortness of breath, wheezing, COPD, or TB exposure. GASTROINTESTINAL: Negative for any abdominal pain, nausea, vomiting, bright red blood per rectum, melena. GENITOURINARY: Negative for any dysuria, hematuria, incontinence. INTEGUMENTARY: Negative for any rashes, cuts, insect bites. RHEUMATOLOGIC: Negative for any joint pains, photosensitive rashes, history of vasculitis or kidney problems. HEMATOLOGIC: Negative for any abnormal bruising, frequent infections or bleeding. Vital Signs (last 8hr) Date Time Temp Pulse Resp B/P (MAP) Pulse Ox O2 Delivery O2 Flow Rate FiO2 08/08/25 08:12 97.9 80 17 99/46 92 Room Air 08/08/25 04:38 98.2 81 17 96/54 95 Room Air PHYSICAL EXAM: GENERAL: Alert and oriented x 3. No acute distress. Well-nourished. EYES: EOMI. Anicteric. HENT: Moist mucous membranes. No scleral icterus. No cervical lymphadenopathy. LUNGS: Clear to auscultation bilaterally. No accessory muscle use. CARDIOVASCULAR: Regular rate and rhythm. No murmur. No JVD. ABDOMEN: Soft, non-tender and non-distended. No palpable masses. EXTREMITIES: No edema. Non-tender SKIN: No rashes or lesions. Warm. NEUROLOGIC: No focal neurological deficits. CN II-XII grossly intact, but not individually tested. PSYCHIATRIC: Cooperative. Appropriate mood and affect. Current Medications Medications (Trade) Dose Ordered Sig/Gregory Route Start Time Stop Time Status Last Admin Dose Admin Albumin Human 100 ml @ 0 mls/hr ONCE IV 07/25/25 12:00 07/26/25 11:59 DC 07/25/25 13:43 100 MLS/HR Cyclobenzaprine HCl (Cyclobenzaprine HCl) 5 mg TID PO 07/25/25 14:00 07/26/25 14:00 DC 07/26/25 14:19 5 MG Fluconazole/ Sodium Chloride (DiFLUCan 200 MG/ NS 100 ML) 200 mg Q24H IVPB 07/21/25 21:00 08/20/25 20:59 07/25/25 20:47 200 MG Furosemide (LASix 20MG TAB) 20 mg DAILY PO 07/25/25 11:00 08/24/25 10:59 07/26/25 08:56 20 MG Insulin Human Regular (humuLIN R 100 UNIT/ML 3ML) INSULIN SLIDING SCAL... ACHS SQ 07/21/25 07:30 08/20/25 07:29 07/22/25 20:40 3 UNIT Lactated Ringer's 1,000 ml @ 75 mls/hr [id number] IV 07/21/25 00:00 07/21/25 13:17 DC 07/21/25 02:57 75 MLS/HR Lactated Ringer's 1,000 ml @ 75 mls/hr [id number] IV 07/21/25 13:30 07/24/25 11:09 DC 07/24/25 09:27 75 MLS/HR Lactobacillus Rhamnosus ([facility] [employer]) 1 each DAILY20 PO 07/26/25 20:00 08/25/25 19:59 Metronidazole/ Sodium Chloride (flaGYL) 500 mg Q8H IV 07/21/25 14:00 07/21/25 13:40 DC Norepinephrine 250 ml @ 0 mls/hr PROTOCOL IV 07/20/25 23:30 08/19/25 23:29 07/21/25 10:56 18.45 MLS/HR Pantoprazole Sodium (PROTonix 40MG INJ) 40 mg BID IV 07/26/25 21:00 08/20/25 08:59 Pantoprazole Sodium (PROTonix 40MG INJ) 40 mg DAILY IV 07/21/25 09:00 07/26/25 09:31 DC 07/26/25 08:55 40 MG Pharmacy Profile Note (Pharmacy Communication) 1 each ONCE MISC 07/21/25 15:30 07/21/25 15:16 DC Piperacillin Sod/ Tazobactam Sod 50 ml @ 200 mls/hr ONCE STAT IVPB 07/20/25 19:15 07/20/25 19:29 DC 07/20/25 20:32 200 MLS/HR Piperacillin Sod/ Tazobactam Sod (Zosyn 3.375gm+NS 50ml) 3.375 gm Q12H IV 07/21/25 00:00 07/31/25 00:00 07/26/25 12:10 3.375 GM Psyllium Hydrophilic Mucilloid (Metamucil) 1 tbs BID PO 07/26/25 21:00 08/25/25 20:59 Sodium Bicarbonate 150 meq/Sodium Chloride 1,150 ml @ 0 mls/hr Q0M IVP 07/21/25 14:00 07/26/25 09:31 DC Spironolactone (Aldactone 25mg) 25 mg BID PO 07/25/25 21:00 07/26/25 09:01 DC 07/26/25 08:56 25 MG Thiamine HCl (Vitamin B-1) 100 mg DAILY IVP 07/22/25 21:00 08/21/25 20:59 07/26/25 08:55 100 MG Thiamine HCl 100 mg/Sodium Chloride 50 ml @ 100 mls/hr Q24H IM 07/21/25 15:30 07/21/25 16:25 DC Vancomycin HCl (Vancomycin 1g/ 250ml Kit) 1 gm ONCE STAT IV 07/20/25 21:23 07/20/25 21:26 DC 07/20/25 22:06 1 GM Vasopressin 20 units/Sodium Chloride 100 ml @ 0 mls/hr PROTOCOL IV 07/21/25 00:30 08/20/25 00:29 07/21/25 00:10 9 MLS/HR LABORATORY: [ ] Hematology Labs: Test 08/08/25 03:43 Range/Units White Blood Count 4.8 4.8-10.8 K/uL Red Blood Count 3.06 L 4.00-5.50 MIL/uL Hemoglobin 9.0 L 12.0-16.0 g/dL Hematocrit 29.1 L 36-48 % Mean Corpuscular Volume 95.1 79-99 fL Mean Corpuscular Hemoglobin 29.4 27.0-33.0 pg Mean Corpuscular Hemoglobin Concent 30.9 L 32.0-36.0 g/dL Red Cell Distribution Width 17.7 H 11.0-15.5 % Platelet Count 145 130-400 K/uL Mean Platelet Volume 10.2 7.5-10.5 fL Nucleated Red Blood Cells 0.0 0.0-0.19 % Chemistry Labs: Test 08/08/25 05:43 08/08/25 03:43 08/07/25 16:07 08/07/25 04:27 Range/Units Whole Blood Glucose 135 H 70-110 MG/DL Sodium Level 135 L 136-145 mmol/L Potassium Level 4.4 3.5-5.1 mmol/L Chloride Level 104 101-111 mmol/L Carbon Dioxide Level 23 21-32 mmol/L Blood Urea Nitrogen 15 7-18 mg/dL Creatinine 0.5 0.5-1.0 mg/dL Glomerular Filtration Rate Calc 109 >90 mL/min Random Glucose 126 H 70-105 mg/dL Total Calcium 8.8 8.5-10.1 mg/dL C-Reactive Protein, Quantitative 43.90 H 0.5-3.0 mg/L Bedside Glucose Comment Notified Nurse Phosphorus Level 2.7 2.5-4.9 mg/dL Magnesium Level 1.90 1.80-2.40 mg/dL DIAGNOSTICS / RADIOLOGY: [place] [address] [place] [id number] IMAGING REPORT Signed PATIENT: DALLAS BUCHANAN MR#: [id number] : 1970 SEX: F AGE: 55 LOCATION: 4AH ORDER 36 STATUS: ADM IN REPORT#: [id number] SERVICE 35 REASON: epigastric pain. not tolerating meals. ORDERING PHYSICIAN: SUSAN JHAVERI MD PROCEDURE: ABD PEL W - CT ABDOMEN/PELVIS W/CONTRAST EXAM: CT Abdomen and Pelvis with IV contrast CLINICAL HISTORY: epigastric pain. not tolerating meals. TECHNIQUE: Axial computed tomography images of the abdomen and pelvis with intravenous contrast. CONTRAST: with intravenous contrast. COMPARISON: Compared with the previous CT dated 07/20 and [facility] dated 07/29 FINDINGS: LUNG BASES: Grossly stable atelectasis and scarring at the lung bases. LIVER: Unremarkable. GALLBLADDER AND BILE DUCTS: The gallbladder is decompressed with a cholecystostomy tube in situ. PANCREAS: Unremarkable. SPLEEN: The spleen is enlarged in size, measuring 15.2 cm. ADRENAL GLANDS: Unremarkable. KIDNEYS, URETERS, AND BLADDER: No hydronephrosis or nephrolithiasis. No ureteral calculi. The urinary bladder is unremarkable. STOMACH AND BOWEL: The ileostomy site appears unremarkable. Interval resolution of previously seen moderate small bowel enteritis. No obstruction. APPENDIX: No CT evidence for appendicitis. PERITONEUM: Near complete interval resolution of previously seen moderate ascites in the abdomen and pelvis. Collection in the perisplenic and infra-splenic region measuring 6.0 x 6.1 x 8.9 cm. Interval resolution of previously seen pneumoperitoneum. Diffuse mesenteric fat stranding, likely postoperative changes. LYMPH NODES: No lymphadenopathy. REPRODUCTIVE: Unremarkable as visualized. VASCULATURE: No aortic aneurysm. ABDOMINAL WALL AND SOFT TISSUES: Interval resolution of previously seen subcutaneous emphysema in the anterior abdominal wall and left lateral chest wall. Abdominal drain in situ with tip in the pelvis. BONES: No fracture or suspicious osseous abnormality. IMPRESSION: 1. Perisplenic and infrasplenic fluid collection measuring 6.0 x 6.1 x 8.9 cm. 2. Splenomegaly, with spleen measuring 15.2 cm. 3. Cholecystostomy tube in situ with decompressed gallbladder. 4. Abdominal drain in situ with tip in the pelvis. 5. No acute findings in the remainder of the abdomen and pelvis. /[place] DICTATED BY: ELDON MILLER Jr., MD DATE: 08/04/251636 ELECTRONICALLY SIGNED BY: ELDON MILLER Jr., MD DATE: 08/04/251636 PATIENT: DALLAS BUCHANAN MR#: [id number] : 1970 SEX: F AGE: 55 LOCATION: 4AH ORDER 1524 STATUS: ADM IN REPORT#: [id number] SERVICE 1523 REASON: cholecystitis ORDERING PHYSICIAN: BENEDICTO OBRIEN Jr. PROCEDURE: HIDA PHARM - NM HIDA/HEPATOBILI W/ PHARMACO EXAM: HIDA scan. INDICATION: Severe RUQ Pain to rule out cholecystitis. REFERENCE EXAMINATION: [facility] July 29, 2025. TECHNIQUE: Sequential images of the abdomen were obtained in the anterior projection after IV administration of 6.0 mCi of Tc99m Mebrofenin. FINDINGS: Tracer activity throughout the liver is homogeneous without focal defects. There is prompt excretion of the pharmaceutical into the bile ducts and into the small bowel, without evidence of obstruction. There is no visualization of the gallbladder at the conclusion of the examination. IMPRESSION: Scintigraphic findings are compatible with acute cholecystitis. /[place] DICTATED BY: ELDON MILLER Jr., MD DATE: 08/01/25 1011 ELECTRONICALLY SIGNED BY: ELDON MILLER Jr., MD DATE: 08/01/25 1011 PATIENT: DALLAS BUCHANAN MR#: [id number] : 1970 SEX: F AGE: 55 LOCATION: 4AH ORDER 10 STATUS: ADM IN REPORT#: [id number] SERVICE 09 REASON: ABD PAIN ORDERING PHYSICIAN: NIKKI MUNOZ NP PROCEDURE: ABD 1VW - ABD 1VW EXAM: CR Abdomen, 1 view. CLINICAL HISTORY: Pain. COMPARISON: None provided. FINDINGS: Dilated small bowel loops are seen in mid abdomen. There is a density in the pelvis which may represent a send drainage catheter. No free air is evident. No abnormal calcification. No aggressive appearing osseous lesion. IMPRESSION: Dilated small bowel loops are seen in mid abdomen. Density in the pelvis which may represent a send drainage catheter. /[place] DICTATED BY: TOBI LEAHY MD DATE: 07/29/25 103 ELECTRONICALLY SIGNED BY: TOBI LEAHY MD DATE: 07/29/25 103 PATIENT: DALLAS BUCHANAN MR#: [id number] : 1970 SEX: F AGE: 55 LOCATION: [facility] ORDER 18 STATUS: ADM IN REPORT#: [id number] SERVICE 15 REASON: Liver cirrhosis ORDERING PHYSICIAN: LISET DOUGLAS MD PROCEDURE: ABDOMEN - US ABDOMINAL COMPLETE EXAM: US Abdomen complete CLINICAL HISTORY: Liver cirrhosis TECHNIQUE: Real-time ultrasound of the abdomen (complete) with image documentation. COMPARISON: None provided. FINDINGS: LIVER: Liver measures 12.3 cm with a heterogeneous coarse echotexture. GALLBLADDER: Gallbladder contains stones and sludge. Gallbladder is distended. COMMON BILE DUCT: No dilation. PANCREAS: Pancreas not well-visualized due to overlying bowel gas KIDNEYS: Normal renal contours. No renal mass or calculus. No hydronephrosis. SPLEEN: Normal in size and echogenicity. No mass identified. AORTA: No aneurysm. IVC: Unremarkable as visualized. MISCELLANEOUS: Small amount of abdominal ascites. IMPRESSION: 1. Cirrhotic-appearing liver. 2. Cholelithiasis and biliary sludge with gallbladder distension. 3. Small volume ascites. /[place] DICTATED BY: CYNTHIA JULIAN MD DATE: 07/29/25 105 ELECTRONICALLY SIGNED BY: CYNTHIA JULIAN MD DATE: 07/29/25 105 PATIENT: DALLAS BUCHANAN MR#: [id number] : 1970 SEX: F AGE: 55 LOCATION: 2BH ORDER 1108 STATUS: ADM IN REPORT#: [id number] SERVICE 1106 REASON: sob ORDERING PHYSICIAN: PREET BOSTON MD PROCEDURE: CXR1VW - CHEST 1VW CHEST 1VW REASON: sob COMPARISON: Study from 07/21/2025 is available. FINDINGS: Single view of the chest was obtained. Lungs are clear. Heart size is normal. There is no pulmonary vascular congestion. There is a right-sided PIC catheter with tip in superior vena cava. There is a nasogastric tube with the tip in the fundus of the stomach. Mediastinum and bony thorax appear unremarkable. IMPRESSION: 1. No acute cardiopulmonary process 2. The support lines are in satisfactory position.. DICTATED BY: GREER FIORE MD DATE: 07/22/251349 ELECTRONICALLY SIGNED BY: GREER FIORE MD DATE: 07/22/251353 PATIENT: DALLAS BUCHANAN MR#: [id number] : 1970 SEX: F AGE: 55 LOCATION: 2BH ORDER 0100 STATUS: ADM IN REPORT#: [id number] SERVICE 0100 REASON: PICC LINE ORDERING PHYSICIAN: HEATHER LEACH APRN PROCEDURE: CXR1VW - CHEST 1VW EXAM: CR Chest, single view. CLINICAL HISTORY: PICC line COMPARISON: Prior same day chest radiograph. FINDINGS: Right-sided PICC catheter with tip in the cavoatrial junction. Subsegmental atelectasis in the right lower lobe. No evidence of pleural effusion or pneumothorax. The cardiomediastinal silhouette is within normal limits. No acute osseous abnormality. IMPRESSION: Right-sided PICC catheter with tip in the cavoatrial junction. Subsegmental atelectasis in the right lower lobe. No evidence of pleural effusion or pneumothorax. Compared to the prior study, there is interval placement of the right-sided PICC line and interval resolution of the subsegmental atelectasis in the left lower lobe. /[place] DICTATED BY: ELDON MILLER Jr., MD DATE: 07/21/25816 ELECTRONICALLY SIGNED BY: ELDON MILLER Jr., MD DATE: 07/21/25816 PATIENT: DALLAS BUCHANAN MR#: [id number] : 1970 SEX: F AGE: 55 LOCATION: [facility] ORDER 14 STATUS: [facility] REPORT#: [id number] SERVICE 12 REASON: CHEST PAIN/COUGH ORDERING PHYSICIAN: ALHAJI SHINE NP PROCEDURE: CXR1VW - CHEST 1VW EXAM: XR Chest, 1 View. CLINICAL HISTORY: 55 year old female with chest pain and cough. COMPARISON: None provided. FINDINGS: LUNGS: The lungs demonstrate evidence of atelectasis. PLEURAL SPACES: A small right pleural effusion is present. HEART: The heart size is normal. BONES: No acute osseous abnormality. IMPRESSION: 1. Small right pleural effusion and right lung base atelectasis. /[place] DICTATED BY: EDWIGE LEDESMA MD DATE: 07/20/252046 ELECTRONICALLY SIGNED BY: EDWIGE LEDESMA MD DATE: 07/20/252046 PATIENT: DALLAS BUCHANAN MR#: [id number] : 1970 SEX: F AGE: 55 LOCATION: [facility] ORDER 14 STATUS: REG ER REPORT#: [id number] SERVICE 12 REASON: Abdominal Pain ORDERING PHYSICIAN: ALHAJI SHINE NP PROCEDURE: ABD PEL W - CT ABDOMEN/PELVIS W/CONTRAST ADDENDUM REPORT ADDENDUM: Results were shared by telephone at 23:23 pm on 07-20-2025 and acknowledged by Pt nurse Ms. SHIN BOYKIN. /[place] EXAM: CT Abdomen and Pelvis with Intravenous Contrast CLINICAL HISTORY: 55-year-old female with abdominal pain. TECHNIQUE: Axial computed tomography images of the abdomen and pelvis with intravenous contrast. Dose reduction technique was used including one or more of the following: automated exposure control, adjustment of mA and kV according to patient size, and/or iterative reconstruction. CONTRAST: Omnipaque 350, 75 mL COMPARISON: None provided. FINDINGS: LUNG BASES: Atelectasis and scarring at the lung bases. LIVER: Unremarkable. GALLBLADDER AND BILE DUCTS: Tiny gallstone seen. PANCREAS: Unremarkable. SPLEEN: Unremarkable. ADRENAL GLANDS: Unremarkable. KIDNEYS, URETERS, AND BLADDER: Dueñas catheter seen in the bladder lumen. No hydronephrosis or nephrolithiasis. No ureteral calculi. STOMACH AND BOWEL: Edema or loops of small bowel suggesting moderate small bowel enteritis. Free air in the upper abdomen is seen, suggesting perforated bowel. No obstruction. APPENDIX: No CT evidence for appendicitis. PERITONEUM: Moderate ascites in the abdomen and pelvis. No free air under the diaphragm. LYMPH NODES: No lymphadenopathy. REPRODUCTIVE: Unremarkable as visualized. VASCULATURE: No aortic aneurysm. ABDOMINAL WALL AND SOFT TISSUES: There is air in the subcutaneous soft tissue seen anteriorly, suggesting recent postsurgical changes; please correlate with surgical history. BONES: No fracture or suspicious osseous abnormality. IMPRESSION: 1. Moderate small bowel enteritis with free air in the upper abdomen, suggesting perforated bowel versus post surgical changes. No obstruction. 2. Moderate ascites in the abdomen and pelvis. 3. Air in the subcutaneous soft tissue anteriorly, suggesting recent postsurgical changes; please correlate with surgical history. /[place] DICTATED BY: EDWIGE LEDESMA MD DATE: 07/20/25 2337 ELECTRONICALLY SIGNED BY: DATE: EXAM: CT Abdomen and Pelvis with Intravenous Contrast CLINICAL HISTORY: 55-year-old female with abdominal pain. TECHNIQUE: Axial computed tomography images of the abdomen and pelvis with intravenous contrast. Dose reduction technique was used including one or more of the following: automated exposure control, adjustment of mA and kV according to patient size, and/or iterative reconstruction. CONTRAST: Omnipaque 350, 75 mL COMPARISON: None provided. FINDINGS: LUNG BASES: Atelectasis and scarring at the lung bases. LIVER: Unremarkable. GALLBLADDER AND BILE DUCTS: Tiny gallstone seen. PANCREAS: Unremarkable. SPLEEN: Unremarkable. ADRENAL GLANDS: Unremarkable. KIDNEYS, URETERS, AND BLADDER: Dueñas catheter seen in the bladder lumen. No hydronephrosis or nephrolithiasis. No ureteral calculi. STOMACH AND BOWEL: Edema or loops of small bowel suggesting moderate small bowel enteritis. Free air in the upper abdomen is seen, suggesting perforated bowel. No obstruction. APPENDIX: No CT evidence for appendicitis. PERITONEUM: Moderate ascites in the abdomen and pelvis. No free air under the diaphragm. LYMPH NODES: No lymphadenopathy. REPRODUCTIVE: Unremarkable as visualized. VASCULATURE: No aortic aneurysm. ABDOMINAL WALL AND SOFT TISSUES: There is air in the subcutaneous soft tissue seen anteriorly, suggesting recent postsurgical changes; please correlate with surgical history. BONES: No fracture or suspicious osseous abnormality. IMPRESSION: 1. Moderate small bowel enteritis with free air in the upper abdomen, suggesting perforated bowel versus post surgical changes. No obstruction. 2. Moderate ascites in the abdomen and pelvis. 3. Air in the subcutaneous soft tissue anteriorly, suggesting recent postsurgical changes; please correlate with surgical history. /[place] DICTATED BY: EDWIGE LEDESMA MD DATE: 07/20/252317 ELECTRONICALLY SIGNED BY: EDWIGE LEDESMA MD DATE: 07/20/252317 ASSESSMENT: Acute kidney injury Bacterial peritonitis Cholelithiasis 2 mm perforation of the colonic anastomosis Anastomosis leak Bilious peritonitis S/p Diagnostic laparoscopy, abdominal washout, drain placement and diverting loop ileostomy creation Atrophic vaginitis Anemia Diabetes Mellitus Type 2 Septic Shock Cirrhosis of liver Oesophageal Varices PLAN: Labs, diagnostic, radiologic exams reviewed and interpreted by myself and supervising physician. We have reviewed external records in detail Pending placement check of cholecystostomy tube and aspiration of perisplenic fluid by IR Follow surgery recommendations Require close monitoring of renal function and electrolytes Order CBC, CMP, and electrolytes in am Continue with antibiotics BiPAP as necessary, for respiratory distress Monitor blood pressure adjust medication doses as needed Avoid hypotensive episodes May use Dilaudid 0.5 mg IV every 6 hours as needed for severe pain Monitor blood sugars Strict intake, output, and daily weight should be monitored Please renally adjust medications Avoid nephrotoxic and nonsteroidal drugs Avoid contrast if possible Will continue to monitor renal function, anemia, electrolytes Treatment plan discussed with patient Questions were answered We have discussed with the other team physicians in detail about the care plan We will continue to monitor the patient closely ATTESTATION BY PHYSICIAN I have seen and examined the patient. I reviewed the documentation, medical decision making, and treatment plan as noted by the mid-level provider above. I agree with the findings and plan of care. CIELO PORTILLO MD, [facility] Aug 08, 2025 10:27
--- NOTE | 2025-08-08 15:11 | NUR ---
OSTOMY CHANGE. CHANGED OSTOMY APPLANCE ONE PIECE. CLEANED SKIN AROUND PINK. BEEFY RED STOMA.
--- NOTE | 2025-08-08 15:33 | PN ---
[facility] PROGRESS NOTE Date of Service: Aug 08, 2025 Time of Service: 15:16 SUBJECTIVE: Ms. Gray is a 55-year-old female that was seen and examined today on 07/20/2025. Patient reports that she came to the emergency department with a chief complaint of abdominal pain. Onset was 07/09/2025. Location is all four quadrants. Duration is constant. Character is described as pressure and " like I have a lot of gas trapped. " there was no alleviating factors. There was no aggravating factors. Patient reports associated abdominal swelling. 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 After the discharge she was taking pain medications and her condition started worsening after few days. She is in constant follow up with Dr Gann. Today in the emergency department WBCs 21.2, left shift neutrophils 85.5%, BUN 26, creatinine 3.1, GFR 17, lactic acid 8.0, no urinalysis has been collected or sent to lab, CT of abdomen and pelvis showed of free air in the abdomen which could be a suspected bowel perforation versus postsurgical changes, moderate ascites, fissure post surgical changes. Chest x-ray shows right pleural effusion. Additionally patient had a heart rate of 125, respirations 26, together with leukocytosis and lactic acidosis patient met clinical sepsis criteria additionally patient's blood pressure dropped to 85/50 mmHg requiring vasopressor support therefore meeting criteria for septic shock. Patient will be admitted to the intensive care unit. Emergency room physician spoke with patient's surgeon, Dr. Gann who requested patient be admitted under hospitalist service and she will follow this case along. 07/21/25 Patient was evaluated at the bedside. She was accompanied by her daughter. She is oriented to the time, place and person. She complained of abdominal pain in all the quadrants. She hasn't had bowel movement since Saturday and also is unable to pass flatus at this time. She has guarding, rigidity and tenderness all over the abdomen, showing the signs of peritonitis. She was seen by Dr Gann this alba and is planned to be taken to OR this afternoon. Dueñas catheter is in place, as she wasn't able to pass the urine. There is no fever, chills and any other signs of infection. 07/22/25 Patient was evaluated at the bedside. She was accompanied by her daughter. She is oriented to the time, place and person. She underwent Diagnostic laparoscopy, abdominal washout, drain placement and diverting loop ileostomy creation, The procedure revealed Bilious peritonitis, 2 mm perforation of the colonic anastomosis. She is hemodynamically stable with Blood pressure of 110/73 and HR of 83. Currently she complains of abdominal pain which is getting better than yesterday, its 3-4/10 intensity. There is no rigidity. She is anxious about the outcomes and had discussion regarding her current clinical status and lab parameters. There is no fever, chills and any other signs of infection. 07/23/25 Patient was evaluated at the bedside. She was accompanied by her daughter. She is oriented to the time, place and person. She status post diagnostic laparoscopy, abdominal washout, drain placement and diverting loop ileostomy creation. Currently she complains of abdominal pain which is 5/10 intensity. She also complaints of mild lower back pain There is no fever, chills and any other signs of infection. She has CHRIS drain in-situ with clear fluid along with colostomy bag. She is currently tolerating clear liquid diet. 07/24/2025 Patient is seen and examined at the bedside. Vitals blood pressure ranging in 100s/50s, pulse rate 50s, SpO2 greater than 95% on room air. She mentions about experiencing pressure-like discomfort on the right side of the abdomen and pain when she tries to eat. No acute events last night. She denies fever, chills, nausea, vomiting, chest pain. CHRIS output approximately 100cc/hr, serosanguineous fluid. Ileostomy bag in place. She is tolerating clear liquid diet without any nausea/vomiting. Labs hemoglobin 9.8, BUN 38, creatinine improved from 1.6-1.1. 07/25/2025 Patient is seen and examined at the bedside. She complains of abdominal pain which is 7/10 in intensity. No acute events last night. She denies fever, chills, nausea, vomiting, chest pain. CHRIS output approximately 100cc/hr, serosanguineous fluid. Ileostomy bag in place. The patient has been started on spironolactone 25mg BID and Lasix 20 mg once daily. There is high output from CHRIS but it is clear serous, most likely related to her ascites from her history of liver cirrhosis. She is tolerating clear liquid diet without any nausea/vomiting. 07/26/2025 Patient is seen and examined at the bedside. She complains of abdominal pain which remains constant. No acute events last night. She denies fever, chills, nausea, vomiting, chest pain. Patient is status post with a CHRIS drain. The drain has been collecting the serosanguineous fluid secondary to ascites. She has been tolerating liquid diet and her diet has been advanced to soft diet. She still has bloating for which probiotics and fibers has been recommended. Hemoglobin has gradually trended down to 9.2 and was given IV Venofer. Patient to get up and ambulate and work with physical therapy. 07/27/2025 Patient is seen and examined at the bedside. She complains of abdominal pain which is 6/10 in intensity. No acute events last night. She denies fever, chills, nausea, vomiting, chest pain. Patient is unable to tolerate the soft diet, hence she is currently receiving the liquid diets. The CHRIS drain output is still high and there was small amount of drainage observed in the right ileostomy. 07/28/2025 Patient is seen and examined at the bedside. She complains of abdominal pain which is 9/10 in intensity. No acute events last night. She denies fever, chills, nausea, vomiting, chest pain. Patient reported pain after eating but no nausea or vomiting. WBC is gradually trending up from 8.3-7.3-11.1-11.8. She had lidocaine patch placed this morning. She was started on simethicone 80 mg yesterday. Pertinent she is currently receiving Dilaudid 0.5 mg. Abdominal ultrasound has been ordered for further assessment. 07/29/2025 Patient is seen and examined at the bedside. She continues to complain of severe abdominal pain, rated 9/10 in intensity, unchanged from prior. She is currently receiving Dilaudid 0.5 mg for pain. She reports discomfort related to Dueñas catheterization. She denies fever, chest pain, nausea or vomiting at this time. No acute events were reported overnight. Blood pressure noted today is noted to be 98/54 mm Hg which is slightly low. Per surgery team, stoma is likely to be removed today. Hemoglobin has trended down from 9.7 g/dl to 9.0 g/dl. 07/30/2025 Patient is seen and examined at the bedside. She continues to complain of severe abdominal pain. Her abdominal distention has slightly improved. Dueñas's catheter was removed due to persistent discomfort. We will continue with scheduled removal of the ascites fluid and from CHRIS bulb. Ultrasound of abdomen was concerning for cholelithiasis with biliary sludge and gallbladder distention. HIDA scan was performed today. If consistent with cholecystitis patient will need cholecystostomy tube placement. 07/31/2025 Patient is seen and examined at the bedside. She was accompanied by her daughter. She continues to complain of severe abdominal pain. She is currently on Dilaudid 0.5mg Q4H PRN, which relieves the symptoms for 2-3 hours, after that she develops same level of pain and discomfort again. Currently awaiting the HIDA scan results. Her sodium level is 133 and albumin level is trending downwards from 2.3 to 2.1. Her Iron panel results showed: Iron 20L, TIBC 147L and %sat 16.3L. For her continuos pain she is started on Fentanyl 25mcg. CHRIS drain culture has beens sent. Based on the results of HIDA scan, CT chest will be planned. 08/01/2025: Patient is seen and examined this morning at bedside. She was accompanied by her daughter. The patient complains of severe abdominal pain. She is currently being managed with Armstrong, and Dilaudid for breakthrough pain. HIDA scan results are back, and show acute cholecystitis. Surgery has been made aware of the results. IR has been consulted for cholecystostomy tube placement. The patient will be started on PPN, as recommended by general surgery. The patient follows with Dr. Sol outpatient for her liver cirrhosis. The patients daughter would like her network technical analyst Dr. Sol to be involved in the patients care, and be updated with her status. 08/02/2025: Patient is seen and evaluated in the room 432. She was accompanied by her daughter. She complains of severe abdominal pain. She also complained of bleeding through her vagina, pink tinged urine. Her vitals are in the normal range. Her labs are in the normal range except for Hb is 8.6, Na is 135, K is 5.2, BUN is 4, Glucose is 150, CRP is 103.90. She went for placement of cholecystectomy tube by IR. We did a pelvic exam and ordered a vaginal estrogen cream and urinalysis. Also for her hyperkalemia we checked the potassium again and its 4.1. So we will repeat the labs tomorrow. We ordered a dose of albumin for her. 08/03/2025: Patient is seen and evaluated in the room 432. She has mild abdominal pain today. Her pain improved after the placement for cholecystotomy tube. Her vitals are in the normal range. Her labs are normal except for hemoglobin 8.2, glucose 156, CRP 89.8. Her aerobic and anaerobic culture of drain showed no growth. Gastroenterology saw the patient and they recommended 25 grams of 25% IV albumin q12H for 3 days. Her bleeding through the vagina decreased. The drainage through the left abdomen is 100ml, right abdomen is 20ml, left anterior abdomen 5ml. 08/04/2025: Patient is seen and evaluated in the room 432. She has abdominal pain today. Her vitals are in the normal range. Her labs are normal except for Hb is 8, CRP is 72.10, glucose is 130. Aerobic and anaerobic drain culture showed no growth. She is not able to tolerate her food. The drainage through the left abdomen is 100ml, right abdomen is 20ml, left anterior abdomen 5ml. Gastroenterology is planning to do EGD tomorrow. Surgery wanted to do a CT abdomen and pelvis with IV contrast. CT scan showed perisplenic and infrasplenic fluid collection measuring 6.0 x 6.1 x 8.9 cm, splenomegaly, with spleen measuring 15.2 cm, cholecystostomy tube in situ with decompressed gallbladder, abdominal drain in situ with tip in the pelvis. We ordered T.bilirubin and we will monitor the output from colostomy tube. We are also planning to add metoclopramide. 08/05/2025: Patient is seen and evaluated in the room 432. She has abdominal pain today. Her abdomen is tender to touch and warm. Her vital signs are in the normal range except for BP is 117/45. Her labs are normal except for Hb is 8.2, sodium is 135, creatinine is 0.3, CRP is 60.9 The drain output from left abdomen is 40ml, left anterior abdomen 0ml, right abdomen 0ml. Her saturation is 100% on 10L of O2. Her labs are in the normal range except for Hb is 8.2, HCT is 25.9, sodium is 135, glucose is 107, CRP is 60.90. She underwent endoscopy today and they did biopsy from 3 sites. GI said that they will consult radiology to check whether CHRIS drain and cholecystostomy tube are in place. General surgery will consult IR to evaluate perisplenic fluid collection for potential aspiration. 08/06/2025: Patient is seen and evaluated in the room 432. She has abdominal pain today. Her abdomen is tender to touch and warm. Her vital signs are in the normal range except for 97/63. Her labs are in the normal range except for Hb is 8.1, sodium is 135, blood glucose is 151, CRP 53.60. We are waiting for IR consult for evaluation and for potential aspiration of perisplenic fluid. The drain output from right abdomen is 20ml. 08/07/2025: Patient is seen and evaluated in the room 432. She has abdominal pain today. Her abdomen is tender to touch and warm. Her vital signs are in the normal range except for blood pressure which is 102/60. Her labs are in the normal range except for Hb is 8.5, WBC is 4.4, RDW is 17.3, sodium is 134, glucose is 147. We are waiting for IR consult for evaluation and for potential aspiration of perisplenic fluid. The drain output from right abdomen is 20ml. The [employer]IGH [employer]CHO[employer]OT[employer]ACH told me that she eats her food after taking her pain medications. Nurse is planning to start full liquid diet for lunch. 08/08/2025: She was evaluated at the bedside this morning. She is AAO x3. she complained of epigastric pain which gets worse with food . Moderate tenderness was appreciated on the epigastric region. Her blood pressure is 99/46, pulse 80. Remarkable lab is for WBC of 4.8, hemoglobin 9, CRP 43.90. She is scheduled with IR for perisplenic fluid aspiration and checking the position of cholecystostomy tube. She is on full liquid diet. She is on Zosyn, fluconazole. Surgery, GI, ID on the board. Rest of the plan as discussed below. REVIEW OF SYSTEMS CONSTITUTIONAL: No fever, chills, or night sweats. NEUROLOGICAL: Denies headache, sensory and motor deficit. CARDIOVASCULAR: Denies any exertional angina, dyspnea on exertion, palpitations. PULMONARY: Denies any shortness of breath, cough, phlegm/sputum, hemoptysis, pleuritic chest pain. GASTROINTESTINAL: Patient complains of diffuse abdominal pain. She also has bloating. Denies nausea, vomiting. GENITOURINARY: Denies frequency, urgency, nocturia, hematuria or incontinence. PHYSICAL EXAM GENERAL APPEARANCE: The patient is alert, awake and oriented and bedbound. NEUROLOGICAL: No sensory and motor deficits. CHEST: Normal chest expansion. LUNGS: Normal Vesicular breath sound. Absence of any rales, rhonchi or any wheezing. CARDIOVASCULAR: Regular. S1 and S2 normal. No appreciable rubs, murmurs or gallops. ABDOMEN: Abdomen is soft and slightly tender. CHRIS drain is placed. Ileostomy creation. Cholecystostomy tube is placed. Absence of guarding, rigidity and rebound tenderness. GENITOURINARY: No suprapubic tenderness. No costovertebral angle tenderness. Vital Signs (last 8hr) Date Time Temp Pulse Resp B/P (MAP) Pulse Ox O2 Delivery O2 Flow Rate FiO2 08/08/25 11:45 97.7 81 18 111/59 95 Room Air 08/08/25 08:12 97.9 80 17 99/46 92 Room Air 08/08/25 08:00 92 Room Air* 0 21 LABS: Laboratory: Test 08/08/25 15:09 08/08/25 03:43 08/07/25 16:07 08/07/25 04:27 Range/Units Whole Blood Glucose 126 H 70-110 MG/DL White Blood Count 4.8 4.8-10.8 K/uL Red Blood Count 3.06 L 4.00-5.50 MIL/uL Hemoglobin 9.0 L 12.0-16.0 g/dL Hematocrit 29.1 L 36-48 % Mean Corpuscular Volume 95.1 79-99 fL Mean Corpuscular Hemoglobin 29.4 27.0-33.0 pg Mean Corpuscular Hemoglobin Concent 30.9 L 32.0-36.0 g/dL Red Cell Distribution Width 17.7 H 11.0-15.5 % Platelet Count 145 130-400 K/uL Mean Platelet Volume 10.2 7.5-10.5 fL Nucleated Red Blood Cells 0.0 0.0-0.19 % Sodium Level 135 L 136-145 mmol/L Potassium Level 4.4 3.5-5.1 mmol/L Chloride Level 104 101-111 mmol/L Carbon Dioxide Level 23 21-32 mmol/L Blood Urea Nitrogen 15 7-18 mg/dL Creatinine 0.5 0.5-1.0 mg/dL Glomerular Filtration Rate Calc 109 >90 mL/min Random Glucose 126 H 70-105 mg/dL Total Calcium 8.8 8.5-10.1 mg/dL C-Reactive Protein, Quantitative 43.90 H 0.5-3.0 mg/L Bedside Glucose Comment Notified Nurse Phosphorus Level 2.7 2.5-4.9 mg/dL Magnesium Level 1.90 1.80-2.40 mg/dL Current Medications Medications (Trade) Dose Ordered Sig/Gregory Route PRN Reason Start Time Stop Time Status Last Admin Dose Admin Acetaminophen (TYLenol 500MG TAB) 500 mg Q6H6 PRN PO MILD PAIN (1-3) 07/27/25 16:30 08/07/25 12:15 DC Acetaminophen (TYLenol 500MG TAB) 500 mg Q6H6 PRN PO MILD PAIN (1-3) 08/07/25 10:00 08/07/25 10:03 DC Acetaminophen (TYLenol 650MG SUPPOSITORY) 650 mg Q6H PRN RC MILD PAIN (1-3) 07/21/25 00:00 07/27/25 16:22 DC Acetaminophen/ Hydrocodone Bitart (NORco 5/325MG) 1 tab Q4H PRN PO MODERATE PAIN (4-6) 07/31/25 16:30 08/05/25 16:29 DC 08/05/25 14:57 1 TAB Acetaminophen/ Hydrocodone Bitart (NORco 5/325MG) 1 tab Q4H PRN PO MODERATE PAIN (4-6) 08/07/25 12:30 08/12/25 12:29 08/08/25 10:53 1 TAB Albumin Human 50 ml @ 100 mls/hr Q12H IV 08/02/25 21:30 08/05/25 09:59 DC 08/05/25 10:12 100 MLS/HR Albumin Human 50 ml @ 0 mls/hr Q12H IV 08/02/25 18:30 08/02/25 20:04 DC Albumin Human 100 ml @ 0 mls/hr ONCE IV 07/25/25 12:00 07/26/25 11:59 DC 07/25/25 13:43 100 MLS/HR Clotrimazole (Lotrimin) 1 GM BID TP 07/29/25 21:00 08/28/25 20:59 08/07/25 19:43 1 GM Cyclobenzaprine HCl (Cyclobenzaprine HCl) 5 mg TID PO 07/25/25 14:00 07/26/25 14:00 DC 07/26/25 14:19 5 MG Fentanyl (DURAgesic 25 MCG/HR PATCH) 25 mcg Q72H TD 07/31/25 14:30 07/31/25 14:44 DC Fluconazole/ Sodium Chloride (DiFLUCan 200 MG/ NS 100 ML) 200 mg Q24H IVPB 07/21/25 21:00 08/20/25 20:59 08/07/25 19:41 200 MG Furosemide (LASix 20MG TAB) 20 mg DAILY PO 07/25/25 11:00 08/02/25 11:53 DC 08/02/25 09:42 20 MG Gabapentin (NEURontin 100 mg CAP) 100 mg TID PO 07/29/25 14:00 08/02/25 09:21 DC 08/01/25 20:14 100 MG Hydromorphone HCl (DiLAUDid 0.5MG INJ) 0.5 mg Q4H PRN IVP SEVERE PAIN (7-10) 07/24/25 10:00 07/29/25 09:59 DC 07/29/25 08:22 0.5 MG Hydromorphone HCl (DiLAUDid 0.5MG INJ) 0.5 mg Q4H PRN IVP SEVERE PAIN (7-10) 07/29/25 13:30 08/03/25 13:29 DC 08/03/25 13:09 0.5 MG Hydromorphone HCl (DiLAUDid 0.5MG INJ) 0.5 mg Q4H PRN IVP SEVERE PAIN (7-10) 08/03/25 18:00 08/07/25 10:03 DC 08/07/25 05:09 0.5 MG Hydromorphone HCl (DiLAUDid 0.5MG INJ) 0.5 mg Q4H PRN IVP SEVERE PAIN (7-10) 08/07/25 10:00 08/12/25 09:59 08/08/25 14:42 0.5 MG Insulin Human Regular (humuLIN R 100 UNIT/ML 3ML) INSULIN SLIDING SCAL... ACHS SQ 07/21/25 07:30 08/20/25 07:29 07/22/25 20:40 3 UNIT Lactated Ringer's 1,000 ml @ 75 mls/hr [id number] IV 07/21/25 00:00 07/21/25 13:17 DC 07/21/25 02:57 75 MLS/HR Lactated Ringer's 1,000 ml @ 75 mls/hr [id number] IV 07/21/25 13:30 07/24/25 11:09 DC 07/24/25 09:27 75 MLS/HR Lactobacillus Rhamnosus ([facility] [employer]) 1 each DAILY20 PO 07/26/25 20:00 08/25/25 19:59 08/07/25 19:41 1 EACH Lidocaine (Lidoderm Patch 5%) 1 patch DAILY TP 07/28/25 09:00 08/27/25 08:59 08/08/25 08:18 1 PATCH Lidocaine HCl/Al Hydroxide/Mg Hydroxide/ Dicyclomine HCl 20ML OR AD ONCE PO 08/06/25 16:30 08/07/25 16:29 DC 08/06/25 16:45 20 ML Magnesium Sulfate 50 ml @ 0 mls/hr PROTOCOL PRN IV MAGNESIUM PROTOCOL 07/21/25 07:00 08/20/25 06:59 08/01/25 06:05 25 MLS/HR Metoclopramide HCl (regLAN 10MG IV) 5 mg BID IVP 08/04/25 21:00 09/03/25 20:59 08/08/25 08:19 5 MG Metronidazole/ Sodium Chloride (flaGYL) 500 mg Q8H IV 07/21/25 14:00 07/21/25 13:40 DC Morphine Sulfate (morPHINE 2MG SYG) 2 mg Q4H PRN IVP SEVERE PAIN (7-10) 07/21/25 00:30 07/21/25 13:18 DC 07/21/25 04:46 2 MG Morphine Sulfate (morPHINE 4MG SYG) 4 mg Q3H PRN IV MODERATE PAIN (4-6) 07/21/25 13:30 07/26/25 16:29 DC 07/26/25 10:51 4 MG Norepinephrine 250 ml @ 0 mls/hr PROTOCOL IV 07/20/25 23:30 08/03/25 08:27 DC 07/21/25 10:56 18.45 MLS/HR Ondansetron HCl (zoFRAN 4MG INJ) 4 mg Q4H PRN IVP NAUSEA 07/21/25 13:30 08/20/25 13:29 Ondansetron HCl (zoFRAN 4MG INJ) 4 mg Q6H PRN IV NAUSEA/VOMITING 07/21/25 00:00 07/21/25 13:18 DC Pantoprazole Sodium (PROTonix 40MG INJ) 40 mg BID IV 07/26/25 21:00 08/20/25 08:59 08/08/25 08:22 40 MG Pantoprazole Sodium (PROTonix 40MG INJ) 40 mg BID IVP 08/05/25 21:00 08/06/25 08:39 DC 08/05/25 20:25 40 MG Pantoprazole Sodium (PROTonix 40MG INJ) 40 mg DAILY IV 07/21/25 09:00 07/26/25 09:31 DC 07/26/25 08:55 40 MG Pharmacy Profile Note (Pharmacy Communication) 1 each ONCE MISC 07/21/25 15:30 07/21/25 15:16 DC Pharmacy Profile Note (Pharmacy Communication) 1 each ONCE MISC 08/06/25 16:00 08/07/25 07:07 DC Piperacillin Sod/ Tazobactam Sod 50 ml @ 200 mls/hr ONCE STAT IVPB 07/20/25 19:15 07/20/25 19:29 DC 07/20/25 20:32 200 MLS/HR Piperacillin Sod/ Tazobactam Sod (Zosyn 3.375gm+NS 50ml) 3.375 gm Q12H IV 07/21/25 00:00 07/31/25 00:00 DC 07/30/25 23:55 3.375 GM Piperacillin Sod/ Tazobactam Sod (Zosyn 3.375gm+NS 50ml) 3.375 gm Q8H IVPB 07/31/25 11:30 08/10/25 11:29 08/08/25 12:30 3.375 GM Potassium Chloride 100 ml @ 100 mls/hr AD PRN IV POTASSIUM PROTOCOL 07/24/25 08:30 08/23/25 08:29 07/30/25 06:23 100 MLS/HR Potassium Chloride (K-Dur/Klor-Con 20meq) 20 meq AD PRN PO POTASSIUM PROTOCOL 07/24/25 08:30 08/23/25 08:29 07/27/25 20:33 20 MEQ Potassium Chloride (KCl 10% Elixir 20meq/15ml) 20 meq AD PRN PO POTASSIUM PROTOCOL 07/24/25 08:30 08/23/25 08:29 07/31/25 08:15 20 MEQ Psyllium Hydrophilic Mucilloid (Metamucil) 1 tbs BID PO 07/26/25 21:00 08/25/25 20:59 08/07/25 19:41 1 TBS Simethicone (Mylicon) 80 mg Q6H6 PO 07/27/25 12:00 08/26/25 11:59 08/08/25 12:30 80 MG Sodium Bicarbonate 150 meq/Sodium Chloride 1,150 ml @ 0 mls/hr Q0M IVP 07/21/25 14:00 07/26/25 09:31 DC Sodium Chloride (NS 50ml) 50 ml AD IV 07/31/25 11:30 07/31/25 11:12 DC Spironolactone (Aldactone 25mg) 25 mg BID PO 07/25/25 21:00 07/26/25 09:01 DC 07/26/25 08:56 25 MG Sucralfate (Carafate) 1 gm ACHS PO 07/29/25 21:00 08/28/25 20:59 08/08/25 12:30 1 GM Thiamine HCl (Vitamin B-1) 100 mg DAILY IVP 07/22/25 21:00 08/21/25 20:59 08/08/25 08:19 100 MG Thiamine HCl 100 mg/Sodium Chloride 50 ml @ 100 mls/hr Q24H IM 07/21/25 15:30 07/21/25 16:25 DC Vancomycin HCl (Vancomycin 1g/ 250ml Kit) 1 gm ONCE STAT IV 07/20/25 21:23 07/20/25 21:26 DC 07/20/25 22:06 1 GM Vasopressin 20 units/Sodium Chloride 100 ml @ 0 mls/hr PROTOCOL IV 07/21/25 00:30 08/03/25 08:27 DC 07/21/25 00:10 9 MLS/HR DIAGNOSTICS / RADIOLOGY: [ ] ASSESSMENT: Suspected Bowel Perforation POA Perisplenic and infrasplenic fluid collection with splenomegaly Hyponatremia Bacterial peritonitis Cholelithiasis Small Bowel Obstruction, Suspected Anastomotic Leak Bilious peritonitis s/p Diagnostic laparoscopy, abdominal washout, drain placement and diverting loop ileostomy creation Atrophic vaginitis hyperkalemia Iron Deficiency anemia Diabetes Mellitus Type 2 POA Acute Kidney Injury POA Septic Shock POA Cirrhosis of liver POA Esophageal Varices Recent Robotic takedown of splenic flexure mobilization, robotic takedown of colovesical fistula with sigmoid colectomy and end-to-end anastomosis surgery PLAN: Bilious peritonitis status post Diagnostic laparoscopy, abdominal washout, drain placement and diverting loop ileostomy creation -Continue close monitoring of the patient -continue physical therapy -Monitor CHRIS drain output -Continues with high output from CHRIS but it is clear serous, most likely related to her ascites from her history of liver cirrhosis -Continue Lactated Ringer's at 75 ml/hr for volume resuscitation and electrolyte replacement -continue Zosyn [day 19] and fluconazole [day 19] -Flexeril 5 mg t.i.d. has been started by the Surgery team. -Probiotics and Fibers have been added for bloating. -Protonix IV increased to twice daily. - Patient has been started on Armstrong by general surgery for abdominal pain, and is advised to take Diluadid only for breakthrough pain. -HIDA scan positive for acute cholecystitis. Surgery has been made aware. - IR did a Fluoroscopy and ultrasound-guided placement of cholecystotomy tube and cholecystogram on 08/02/2025. -Dr. Sol saw the patient and he recommended 25g of 25% albumin for 3 days. -Gastroenterology is planning to do EGD and they did biopsy from 3 sites. GI said that they will consult radiology to check whether CHRIS drain and cholecystostomy tube are in place. -Surgery wanted to do a CT abdomen and pelvis with IV contrast. CT scan showed perisplenic and infrasplenic fluid collection measuring 6.0 x 6.1 x 8.9 cm, splenomegaly, with spleen measuring 15.2 cm, cholecystostomy tube in situ with decompressed gallbladder, abdominal drain in situ with tip in the pelvis. -GI said that they will consult radiology to check whether CHRIS drain and cholecystostomy tube are in place. -We ordered T.bilirubin and we will monitor the output from colostomy tube. -We are also planning to add metoclopramide. -started on full liquid diet Perisplenic and infrasplenic fluid collection with splenomegaly * CT scan showed perisplenic and infrasplenic fluid collection measuring 6.0 x 6.1 x 8.9 cm, splenomegaly, with spleen measuring 15.2 cm * IR to drain the perisplenic and intra splenic fluid tomorrow. Hyponatremia * Today her sodium level is 135. * Will repeat her labs tomorrow. Bacterial Peritonitis * Post Surgical patient with Bacterial peritonitis positive for ESBL * Culture and sensitivity shows susceptibility to Zosyn, Gentamicin and Meropenem. * Likely secondary to post-operative intraabdominal infection with risk of ongoing contamination. * Currently patient is on Zosyn (Day 19) * For her continuos pain she is started on Fentanyl 25mcg. CHRIS drain culture has beens sent. Cholelithiasis * Patient complained of upper abdominal pain * Ultrasound abdomen showed: Cirrhotic-appearing liver * Cholelithiasis and biliary sludge with gallbladder distension and Small volume ascites. * Hida scan shows acute cholecystitis. * Per Surgery: IR to be consulted for cholecystostomy tube placement. * IR did a Fluoroscopy and ultrasound-guided placement of cholecystotomy tube and cholecystogram on 08/02/2025. * IR to evaluate the position of cholecystostomy tube tomorrow. Small Bowel Obstruction (Resolved) * Patient complaints of abdominal pain which is 9/10 on intensity * Abdominal Xray showed: Dilated small bowel loops are seen in mid abdomen * Perform Serial abdominal exams * Pain management(avoid excess opioids if ileus is suspected) * Evaluate drain, bowel status * Monitor for resolution vs progression of Ileus/obstruction. 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 - CT abdominal pelvis w/contrast done on 07/20/2025 showed Free air in the upper abdomen is seen, suggesting perforated bowel vs post surgical changes. No obstruction. -underwent Diagnostic laparoscopy, abdominal washout, drain placement and diverting loop ileostomy creation for biliary peritonitis Atrophic vaginitis * Her bleeding is resolved * We did a pelvic examination. * Ordered topical estrogen. * Urinalysis showed cloudy urine, protein 30, trace occult blood, RBC is 11 to 25, WBC is 26 to 50. hyperkalemia * Today his potassium is 4.4 * Will repeat her labs tomorrow. Iron Deficiency anemia * Hemoglobin today is 9. * Iron sucrose (venofer) has been ordered. * Anemia panel has been ordered. Results showed Iron 24L, %sat 16.3 and TIBC 147L. 07/30/25 * Recommend trending Hgb and transfuse as needed to goal Hgb >7. * Plan to initiate the patient on Venofer, her last dose of Venofer was 200 mg on 07/26/2025 * Iron level is 20L, % saturation 11.9, TIBC 167L, Ferritin 129. 07/25/25 Septic Shock -resolved -Her WBC is 4.4 today. 08/07/2025 -Her WBC during the presentation was 21.2 -lactic acid is 1.5 on 07/31/2025 -blood and urine culture results are negative Acute Kidney Injury Resolved -Creatinine improved from 1.6-1.1-0.7-0.6-0.6-0.6-0.6-0.6-0.5-0.6-0.6-0.5-0.5-0.3-0.6-0.4. 08/07/2025 -Initial FeNA is 0.1 %, probably secondary to dehydration and NSAIDs overuse. -initial Urine sodium is < 13 and urine creatinine is 132.17. -Avoid nephrotoxic agents, eg. NSAIDS. -Weight patient daily. -Monitor intake and output. -Ordered urinalysis Cirrhosis of liver -Patient has a past history of cirrhosis of liver. - Liver functions are within normal limits. AST 20, ALT 9 and ALP 67. - Avoid NSAIDs and high dose acetaminophen. -Maintain appropriate volume of the patient. -Patient has been started on Spironolactone 25 mg b.i.d. and Lasix 20 mg once daily. 07/25/25 -Albumin is given today for the hypotension. -Patients family is requesting that Dr. Sol be involved in the patients care. Supportive measures -Maintain IV fluids, correct electrolytes -Serial abdominal exams -Counter Tender on avoidance of NSAIDS and other related triggers. -Monitor Vitals and perform morning labs regularly Continue GI prophylaxis with Pantop Continue DVT prophylaxis with SCDs, we will avoid heparin due to history of allergies to porcine, we will coordinate with surgery consult on initiation of other anticoagulants ATTESTATION BY PHYSICIAN I have seen and examined the patient. I reviewed the documentation, medical decision making, and treatment plan as noted by the resident provider above. I agree with the findings and plan of care. Denzel Coello IV, MD, SUNIL MD Aug 08, 2025 15:33
--- NOTE | 2025-08-08 19:45 | PN ---
This is a 55-year-old female status post colectomy with subsequent anastomotic leak requiring repeat laparoscopy with drain placement and diverting loop ileostomy. Patient reports pain is better controlled today. Abdomen is soft, nondistended, nontender, no rebound, no guarding. Vitals remained stable and white count is normal. Plan is for interventional radiology to evaluate the patient's recent CT scan for possible aspiration versus drain placement in the left upper quadrant splenic fluid collection as well as interrogate the percutaneous cholecystostomy tube drain. Continue present management. NPO at midnight. Surgery will follow. Vitals/Labs Vital Signs Date Time Temp Pulse Resp B/P (MAP) Pulse Ox O2 Delivery O2 Flow Rate FiO2 08/08/25 15:34 97.9 86 18 108/58 96 Room Air 08/08/25 08:00 0 21 Laboratory Tests 08/08/25 03:43 JARED ACOSTA DO Aug 08, 2025 19:45
[2025-08-09] VITALS (12 sets, daily range): BP systolic 98–125; BP diastolic 50–72; PULSE 83–116; RESP 17–22; TEMP 98–99.3; O2SAT 93
[2025-08-09 04:10] LABS: IMMATURE GRANULOCYTE ABSOLUTE 0.07 K/uL (0-1); NUCLEATED RED BLOOD CELLS 0.0 % (0.0-0.19); PLATELET COUNT (AUTO) 153 K/uL (130-400); RED BLOOD CELL COUNT(AUTO) 3.13 MIL/uL (4.00-5.50); RED CELL DISTRIBUTION WIDTH 17.6 % (11.0-15.5); WHITE BLOOD COUNT (AUTO) 4.3 K/uL (4.8-10.8)
[2025-08-09 04:50] LABS: ASPARTATE AMINOTRANSFERASE 30.0 U/L (10-37); CREATININE 0.6 mg/dL (0.5-1.0); GLOMERULAR FILTR. RATE CALC 105.0 mL/min (>90); GLUCOSE,RANDOM 128.0 mg/dL (70-105); SODIUM SERUM 135.0 mmol/L (136-145); TOTAL PROTEIN, SERUM 7.1 g/dL (6.0-8.3); UREA NITROGEN, BLOOD 12.0 mg/dL (7-18)
[2025-08-09] MEDS: [UNRECOGNIZED DRUG - NUTRITION] IV ONE (06:11)
[2025-08-09 07:58] LABS: INR 1.34 (0.85-1.15)
--- NOTE | 2025-08-09 09:55 | NUR ---
PT OFF UNIT AT THIS TIME FOR IR AND DIRECT SUPPORT PROFESSIONAL CAREGIVER PROCEDURE.
[2025-08-09] MEDS ORDERED: LIDOCAINE HCL 1% MDV 50ML VIAL ONE (09:59)
[2025-08-09] MEDS ORDERED: IOHEXOL-350 50ML VIAL IV ONE (09:59)
[2025-08-09] MEDS: SODIUM CHLORIDE 0.9 % (FLUSH) 10 ML SYG IJ SCH (11:00)
--- NOTE | 2025-08-09 12:57 | PN ---
NEPHROLOGY PROGRESS NOTE Date/Time Patient Seen: Aug 09, 2025 SUBJECTIVE: This is a 55-year-old female with a past medical history of diabetes mellitus type 2, liver cirrhosis, esophageal varices. He presented to the emergency room with chief complain of abdominal pain. CT of the abdomen showed moderate small bowel enteritis with free air in the upper abdomen, suggesting perforated bowel versus post surgical changes. No obst ruction. S/p diagnostic laparoscopy, abdominal washout, drain placement and diverting loop ileostomy creation with CHRIS drain 10 [place] on 07/21 S/P Cholecystogram showed cholecystotomy tube in satisfactory position with multiple large gallstones seen in the gallbladder lumen. S/P drain placement by IR pending official report She was noted to have elevated BUN/creatinine We are consulted for renal failure Renal function and electrolytes are stable. She was seen in the medial floor, in no acute distress No family at the bedside REVIEW OF SYSTEMS: GENERAL: Positive for abdominal pain and nausea NEUROLOGIC: Negative for any blurry vision, blind spots, double vision, facial asymmetry, dysphagia, dysarthria, hemiparesis, hemisensory deficits, vertigo, ataxia. HEENT: Negative for any head trauma, neck trauma, neck stiffness, photophobia, phonophobia, sinusitis, rhinitis. CARDIAC: Negative for any chest pain, dyspnea on exertion, paroxysmal nocturnal dyspnea, peripheral edema. PULMONARY: Negative for any shortness of breath, wheezing, COPD, or TB exposure. GASTROINTESTINAL: Negative for any abdominal pain, nausea, vomiting, bright red blood per rectum, melena. GENITOURINARY: Negative for any dysuria, hematuria, incontinence. INTEGUMENTARY: Negative for any rashes, cuts, insect bites. RHEUMATOLOGIC: Negative for any joint pains, photosensitive rashes, history of vasculitis or kidney problems. HEMATOLOGIC: Negative for any abnormal bruising, frequent infections or bleeding. Vital Signs (last 8hr) Date Time Temp Pulse Resp B/P (MAP) Pulse Ox O2 Delivery O2 Flow Rate FiO2 08/09/25 12:00 98.4 87 20 100/66 95 Room Air 08/09/25 08:08 98.1 90 18 98/58 96 Room Air 08/09/25 08:00 Room Air* 0 21 08/09/25 05:59 98.2 83 19 117/71 99 Room Air PHYSICAL EXAM: GENERAL: Alert and oriented x 3. No acute distress. Well-nourished. EYES: EOMI. Anicteric. HENT: Moist mucous membranes. No scleral icterus. No cervical lymphadenopathy. LUNGS: Clear to auscultation bilaterally. No accessory muscle use. CARDIOVASCULAR: Regular rate and rhythm. No murmur. No JVD. ABDOMEN: Soft, non-tender and non-distended. No palpable masses. EXTREMITIES: No edema. Non-tender SKIN: No rashes or lesions. Warm. NEUROLOGIC: No focal neurological deficits. CN II-XII grossly intact, but not individually tested. PSYCHIATRIC: Cooperative. Appropriate mood and affect. Current Medications Medications (Trade) Dose Ordered Sig/Gregory Route Start Time Stop Time Status Last Admin Dose Admin Albumin Human 100 ml @ 0 mls/hr ONCE IV 07/25/25 12:00 07/26/25 11:59 DC 07/25/25 13:43 100 MLS/HR Cyclobenzaprine HCl (Cyclobenzaprine HCl) 5 mg TID PO 07/25/25 14:00 07/26/25 14:00 DC 07/26/25 14:19 5 MG Fluconazole/ Sodium Chloride (DiFLUCan 200 MG/ NS 100 ML) 200 mg Q24H IVPB 07/21/25 21:00 08/20/25 20:59 07/25/25 20:47 200 MG Furosemide (LASix 20MG TAB) 20 mg DAILY PO 07/25/25 11:00 08/24/25 10:59 07/26/25 08:56 20 MG Insulin Human Regular (humuLIN R 100 UNIT/ML 3ML) INSULIN SLIDING SCAL... ACHS SQ 07/21/25 07:30 08/20/25 07:29 07/22/25 20:40 3 UNIT Lactated Ringer's 1,000 ml @ 75 mls/hr [id number] IV 07/21/25 00:00 07/21/25 13:17 DC 07/21/25 02:57 75 MLS/HR Lactated Ringer's 1,000 ml @ 75 mls/hr [id number] IV 07/21/25 13:30 07/24/25 11:09 DC 07/24/25 09:27 75 MLS/HR Lactobacillus Rhamnosus ([facility] [employer]) 1 each DAILY20 PO 07/26/25 20:00 08/25/25 19:59 Metronidazole/ Sodium Chloride (flaGYL) 500 mg Q8H IV 07/21/25 14:00 07/21/25 13:40 DC Norepinephrine 250 ml @ 0 mls/hr PROTOCOL IV 07/20/25 23:30 08/19/25 23:29 07/21/25 10:56 18.45 MLS/HR Pantoprazole Sodium (PROTonix 40MG INJ) 40 mg BID IV 07/26/25 21:00 08/20/25 08:59 Pantoprazole Sodium (PROTonix 40MG INJ) 40 mg DAILY IV 07/21/25 09:00 07/26/25 09:31 DC 07/26/25 08:55 40 MG Pharmacy Profile Note (Pharmacy Communication) 1 each ONCE MISC 07/21/25 15:30 07/21/25 15:16 DC Piperacillin Sod/ Tazobactam Sod 50 ml @ 200 mls/hr ONCE STAT IVPB 07/20/25 19:15 07/20/25 19:29 DC 07/20/25 20:32 200 MLS/HR Piperacillin Sod/ Tazobactam Sod (Zosyn 3.375gm+NS 50ml) 3.375 gm Q12H IV 07/21/25 00:00 07/31/25 00:00 07/26/25 12:10 3.375 GM Psyllium Hydrophilic Mucilloid (Metamucil) 1 tbs BID PO 07/26/25 21:00 08/25/25 20:59 Sodium Bicarbonate 150 meq/Sodium Chloride 1,150 ml @ 0 mls/hr Q0M IVP 07/21/25 14:00 07/26/25 09:31 DC Spironolactone (Aldactone 25mg) 25 mg BID PO 07/25/25 21:00 07/26/25 09:01 DC 07/26/25 08:56 25 MG Thiamine HCl (Vitamin B-1) 100 mg DAILY IVP 07/22/25 21:00 08/21/25 20:59 07/26/25 08:55 100 MG Thiamine HCl 100 mg/Sodium Chloride 50 ml @ 100 mls/hr Q24H IM 07/21/25 15:30 07/21/25 16:25 DC Vancomycin HCl (Vancomycin 1g/ 250ml Kit) 1 gm ONCE STAT IV 07/20/25 21:23 07/20/25 21:26 DC 07/20/25 22:06 1 GM Vasopressin 20 units/Sodium Chloride 100 ml @ 0 mls/hr PROTOCOL IV 07/21/25 00:30 08/20/25 00:29 07/21/25 00:10 9 MLS/HR LABORATORY: [ ] Hematology Labs: Test 08/09/25 03:33 Range/Units White Blood Count 4.3 L 4.8-10.8 K/uL Red Blood Count 3.13 L 4.00-5.50 MIL/uL Hemoglobin 9.3 L 12.0-16.0 g/dL Hematocrit 29.6 L 36-48 % Mean Corpuscular Volume 94.6 79-99 fL Mean Corpuscular Hemoglobin 29.7 27.0-33.0 pg Mean Corpuscular Hemoglobin Concent 31.4 L 32.0-36.0 g/dL Red Cell Distribution Width 17.6 H 11.0-15.5 % Platelet Count 153 130-400 K/uL Mean Platelet Volume 10.2 7.5-10.5 fL Immature Granulocyte % (Auto) 1.6 H 0-1 % Neutrophils (%) (Auto) 64.0 40.0-77.0 % Lymphocytes (%) (Auto) 14.4 L 21.0-51.0 % Monocytes (%) (Auto) 13.5 H 3.0-13.0 % Eosinophils (%) (Auto) 5.8 0.0-8.0 % Basophils (%) (Auto) 0.7 0.0-5.0 % Neutrophils # (Auto) 2.8 1.8-7.7 K/uL Lymphocytes # (Auto) 0.6 L 1.0-4.8 K/uL Monocytes # (Auto) 0.6 0.1-1.0 K/uL Eosinophils # (Auto) 0.25 0.00-0.70 K/uL Basophils # (Auto) 0.03 0.00-0.20 K/uL Absolute Immature Granulocyte (auto 0.07 0-1 K/uL Nucleated Red Blood Cells 0.0 0.0-0.19 % Chemistry Labs: Test 08/09/25 11:38 08/09/25 03:33 08/08/25 03:43 08/07/25 16:07 Range/Units Whole Blood Glucose 107 70-110 MG/DL Sodium Level 135 L 136-145 mmol/L Potassium Level 4.4 3.5-5.1 mmol/L Chloride Level 104 101-111 mmol/L Carbon Dioxide Level 22 21-32 mmol/L Blood Urea Nitrogen 12 7-18 mg/dL Creatinine 0.6 0.5-1.0 mg/dL Glomerular Filtration Rate Calc 105 >90 mL/min Random Glucose 128 H 70-105 mg/dL Total Calcium 8.6 8.5-10.1 mg/dL Magnesium Level 2.00 1.80-2.40 mg/dL Total Bilirubin 0.5 0.2-1.0 mg/dL Aspartate Amino Transf (AST/SGOT) 30 10-37 U/L Alanine Aminotransferase (ALT/SGPT) 13 12-78 U/L Alkaline Phosphatase 107 50-136 U/L Total Protein 7.1 6.0-8.3 g/dL Albumin 2.6 L 3.5-5.0 g/dL C-Reactive Protein, Quantitative 43.90 H 0.5-3.0 mg/L Bedside Glucose Comment Notified Nurse Coagulation Labs: Test 08/09/25 07:42 Range/Units Prothrombin Time 13.8 H 9.6-11.6 SEC Prothromb Time International Ratio 1.34 H 0.85-1.15 Activated Partial Thromboplast Time 32.9 26.3-35.5 [facility] / RADIOLOGY: [place] [address] IMAGING REPORT Signed PATIENT: DALLAS BUCHANAN MR#: [id number] : 1970 SEX: F AGE: 55 LOCATION: [facility] ORDER 36 STATUS: ADM IN REPORT#: [id number] SERVICE 35 REASON: epigastric pain. not tolerating meals. ORDERING PHYSICIAN: SUSAN JHAVERI MD PROCEDURE: ABD PEL W - CT ABDOMEN/PELVIS W/CONTRAST EXAM: CT Abdomen and Pelvis with IV contrast CLINICAL HISTORY: epigastric pain. not tolerating meals. TECHNIQUE: Axial computed tomography images of the abdomen and pelvis with intravenous contrast. CONTRAST: with intravenous contrast. COMPARISON: Compared with the previous CT dated 07/20 and [facility] dated 07/29 FINDINGS: LUNG BASES: Grossly stable atelectasis and scarring at the lung bases. LIVER: Unremarkable. GALLBLADDER AND BILE DUCTS: The gallbladder is decompressed with a cholecystostomy tube in situ. PANCREAS: Unremarkable. SPLEEN: The spleen is enlarged in size, measuring 15.2 cm. ADRENAL GLANDS: Unremarkable. KIDNEYS, URETERS, AND BLADDER: No hydronephrosis or nephrolithiasis. No ureteral calculi. The urinary bladder is unremarkable. STOMACH AND BOWEL: The ileostomy site appears unremarkable. Interval resolution of previously seen moderate small bowel enteritis. No obstruction. APPENDIX: No CT evidence for appendicitis. PERITONEUM: Near complete interval resolution of previously seen moderate ascites in the abdomen and pelvis. Collection in the perisplenic and infra-splenic region measuring 6.0 x 6.1 x 8.9 cm. Interval resolution of previously seen pneumoperitoneum. Diffuse mesenteric fat stranding, likely postoperative changes. LYMPH NODES: No lymphadenopathy. REPRODUCTIVE: Unremarkable as visualized. VASCULATURE: No aortic aneurysm. ABDOMINAL WALL AND SOFT TISSUES: Interval resolution of previously seen subcutaneous emphysema in the anterior abdominal wall and left lateral chest wall. Abdominal drain in situ with tip in the pelvis. BONES: No fracture or suspicious osseous abnormality. IMPRESSION: 1. Perisplenic and infrasplenic fluid collection measuring 6.0 x 6.1 x 8.9 cm. 2. Splenomegaly, with spleen measuring 15.2 cm. 3. Cholecystostomy tube in situ with decompressed gallbladder. 4. Abdominal drain in situ with tip in the pelvis. 5. No acute findings in the remainder of the abdomen and pelvis. /[place] DICTATED BY: ELDON MILLER Jr., MD DATE: 08/04/251636 ELECTRONICALLY SIGNED BY: ELDON MILLER Jr., MD DATE: 08/04/251636 PATIENT: DALLAS BUCHANAN MR#: [id number] : 1970 SEX: F AGE: 55 LOCATION: [facility] ORDER 1524 STATUS: ADM IN REPORT#: [id number] SERVICE 1523 REASON: cholecystitis ORDERING PHYSICIAN: BENEDICTO OBRIEN Jr. PROCEDURE: HIDA PHARM - NM HIDA/HEPATOBILI W/ PHARMACO EXAM: HIDA scan. INDICATION: Severe RUQ Pain to rule out cholecystitis. REFERENCE EXAMINATION: [facility] July 29, 2025. TECHNIQUE: Sequential images of the abdomen were obtained in the anterior projection after IV administration of 6.0 mCi of Tc99m Mebrofenin. FINDINGS: Tracer activity throughout the liver is homogeneous without focal defects. There is prompt excretion of the pharmaceutical into the bile ducts and into the small bowel, without evidence of obstruction. There is no visualization of the gallbladder at the conclusion of the examination. IMPRESSION: Scintigraphic findings are compatible with acute cholecystitis. /[place] DICTATED BY: ELDON MILLER Jr., MD DATE: 08/01/25 1011 ELECTRONICALLY SIGNED BY: ELDON MILLER Jr., MD DATE: 08/01/25 1011 PATIENT: DALLAS BUCHANAN MR#: [id number] : 1970 SEX: F AGE: 55 LOCATION: [facility] ORDER 10 STATUS: ADM IN REPORT#: [id number] SERVICE 09 REASON: ABD PAIN ORDERING PHYSICIAN: NIKKI MUNOZ NP PROCEDURE: ABD 1VW - ABD 1VW EXAM: CR Abdomen, 1 view. CLINICAL HISTORY: Pain. COMPARISON: None provided. FINDINGS: Dilated small bowel loops are seen in mid abdomen. There is a density in the pelvis which may represent a send drainage catheter. No free air is evident. No abnormal calcification. No aggressive appearing osseous lesion. IMPRESSION: Dilated small bowel loops are seen in mid abdomen. Density in the pelvis which may represent a send drainage catheter. /[place] DICTATED BY: TOBI LEAHY MD DATE: 07/29/25 1033 ELECTRONICALLY SIGNED BY: TOBI LEAHY MD DATE: 07/29/25 1033 PATIENT: DALLAS BUCHANAN MR#: [id number] : 1970 SEX: F AGE: 55 LOCATION: [facility] ORDER 1519 STATUS: ADM IN REPORT#: [id number] SERVICE 1516 REASON: Liver cirrhosis ORDERING PHYSICIAN: LISET DOUGLAS MD PROCEDURE: ABDOMEN - US ABDOMINAL COMPLETE EXAM: US Abdomen complete CLINICAL HISTORY: Liver cirrhosis TECHNIQUE: Real-time ultrasound of the abdomen (complete) with image documentation. COMPARISON: None provided. FINDINGS: LIVER: Liver measures 12.3 cm with a heterogeneous coarse echotexture. GALLBLADDER: Gallbladder contains stones and sludge. Gallbladder is distended. COMMON BILE DUCT: No dilation. PANCREAS: Pancreas not well-visualized due to overlying bowel gas KIDNEYS: Normal renal contours. No renal mass or calculus. No hydronephrosis. SPLEEN: Normal in size and echogenicity. No mass identified. AORTA: No aneurysm. IVC: Unremarkable as visualized. MISCELLANEOUS: Small amount of abdominal ascites. IMPRESSION: 1. Cirrhotic-appearing liver. 2. Cholelithiasis and biliary sludge with gallbladder distension. 3. Small volume ascites. /[place] DICTATED BY: CYNTHIA JULIAN MD DATE: 07/29/25 105 ELECTRONICALLY SIGNED BY: CYNTHIA JULIAN MD DATE: 07/29/25 105 PATIENT: DALLAS BUCHANAN MR#: [id number] : 1970 SEX: F AGE: 55 LOCATION: [facility] ORDER 1108 STATUS: ADM IN REPORT#: [id number] SERVICE 1106 REASON: sob ORDERING PHYSICIAN: PREET BOSTON MD PROCEDURE: CXR1VW - CHEST 1VW CHEST 1VW REASON: sob COMPARISON: Study from 07/21/2025 is available. FINDINGS: Single view of the chest was obtained. Lungs are clear. Heart size is normal. There is no pulmonary vascular congestion. There is a right-sided PIC catheter with tip in superior vena cava. There is a nasogastric tube with the tip in the fundus of the stomach. Mediastinum and bony thorax appear unremarkable. IMPRESSION: 1. No acute cardiopulmonary process 2. The support lines are in satisfactory position.. DICTATED BY: GREER FIORE MD DATE: 07/22/251349 ELECTRONICALLY SIGNED BY: GREER FIORE MD DATE: 07/22/251353 PATIENT: DALLAS BUCHANAN MR#: [id number] : 1970 SEX: F AGE: 55 LOCATION: [facility] ORDER STATUS: ADM IN REPORT#: [id number] SERVICE REASON: PICC LINE ORDERING PHYSICIAN: HEATHER LEACH APRN PROCEDURE: CXR1VW - CHEST 1VW EXAM: CR Chest, single view. CLINICAL HISTORY: PICC line COMPARISON: Prior same day chest radiograph. FINDINGS: Right-sided PICC catheter with tip in the cavoatrial junction. Subsegmental atelectasis in the right lower lobe. No evidence of pleural effusion or pneumothorax. The cardiomediastinal silhouette is within normal limits. No acute osseous abnormality. IMPRESSION: Right-sided PICC catheter with tip in the cavoatrial junction. Subsegmental atelectasis in the right lower lobe. No evidence of pleural effusion or pneumothorax. Compared to the prior study, there is interval placement of the right-sided PICC line and interval resolution of the subsegmental atelectasis in the left lower lobe. /[place] DICTATED BY: ELDON MILLER Jr., MD DATE: 07/21/25816 ELECTRONICALLY SIGNED BY: ELDON MILLER Jr., MD DATE: 07/21/25816 PATIENT: DALLAS BUCHANAN MR#: [id number] : 1970 SEX: F AGE: 55 LOCATION: [facility] ORDER 14 STATUS: [facility] REPORT#: [id number] SERVICE 12 REASON: CHEST PAIN/COUGH ORDERING PHYSICIAN: ALHAJI SHINE NP PROCEDURE: CXR1VW - CHEST 1VW EXAM: XR Chest, 1 View. CLINICAL HISTORY: 55 year old female with chest pain and cough. COMPARISON: None provided. FINDINGS: LUNGS: The lungs demonstrate evidence of atelectasis. PLEURAL SPACES: A small right pleural effusion is present. HEART: The heart size is normal. BONES: No acute osseous abnormality. IMPRESSION: 1. Small right pleural effusion and right lung base atelectasis. /[place] DICTATED BY: EDWIGE LEDESMA MD DATE: 07/20/252046 ELECTRONICALLY SIGNED BY: EDWIGE LEDESMA MD DATE: 07/20/252046 PATIENT: DALLAS BUCHANAN MR#: [id number] : 1970 SEX: F AGE: 55 LOCATION: [facility] ORDER 14 STATUS: [facility] REPORT#: [id number] SERVICE 12 REASON: Abdominal Pain ORDERING PHYSICIAN: ALHAJI SHINE NP PROCEDURE: ABD PEL W - CT ABDOMEN/PELVIS W/CONTRAST ADDENDUM REPORT ADDENDUM: Results were shared by telephone at 23:23 pm on 07-20-2025 and acknowledged by Pt nurse Ms. SHIN BOYKIN. /[place] EXAM: CT Abdomen and Pelvis with Intravenous Contrast CLINICAL HISTORY: 55-year-old female with abdominal pain. TECHNIQUE: Axial computed tomography images of the abdomen and pelvis with intravenous contrast. Dose reduction technique was used including one or more of the following: automated exposure control, adjustment of mA and kV according to patient size, and/or iterative reconstruction. CONTRAST: Omnipaque 350, 75 mL COMPARISON: None provided. FINDINGS: LUNG BASES: Atelectasis and scarring at the lung bases. LIVER: Unremarkable. GALLBLADDER AND BILE DUCTS: Tiny gallstone seen. PANCREAS: Unremarkable. SPLEEN: Unremarkable. ADRENAL GLANDS: Unremarkable. KIDNEYS, URETERS, AND BLADDER: Dueñas catheter seen in the bladder lumen. No hydronephrosis or nephrolithiasis. No ureteral calculi. STOMACH AND BOWEL: Edema or loops of small bowel suggesting moderate small bowel enteritis. Free air in the upper abdomen is seen, suggesting perforated bowel. No obstruction. APPENDIX: No CT evidence for appendicitis. PERITONEUM: Moderate ascites in the abdomen and pelvis. No free air under the diaphragm. LYMPH NODES: No lymphadenopathy. REPRODUCTIVE: Unremarkable as visualized. VASCULATURE: No aortic aneurysm. ABDOMINAL WALL AND SOFT TISSUES: There is air in the subcutaneous soft tissue seen anteriorly, suggesting recent postsurgical changes; please correlate with surgical history. BONES: No fracture or suspicious osseous abnormality. IMPRESSION: 1. Moderate small bowel enteritis with free air in the upper abdomen, suggesting perforated bowel versus post surgical changes. No obstruction. 2. Moderate ascites in the abdomen and pelvis. 3. Air in the subcutaneous soft tissue anteriorly, suggesting recent postsurgical changes; please correlate with surgical history. /[place] DICTATED BY: EDWIGE LEDESMA MD DATE: 07/20/25 9084 ELECTRONICALLY SIGNED BY: DATE: EXAM: CT Abdomen and Pelvis with Intravenous Contrast CLINICAL HISTORY: 55-year-old female with abdominal pain. TECHNIQUE: Axial computed tomography images of the abdomen and pelvis with intravenous contrast. Dose reduction technique was used including one or more of the following: automated exposure control, adjustment of mA and kV according to patient size, and/or iterative reconstruction. CONTRAST: Omnipaque 350, 75 mL COMPARISON: None provided. FINDINGS: LUNG BASES: Atelectasis and scarring at the lung bases. LIVER: Unremarkable. GALLBLADDER AND BILE DUCTS: Tiny gallstone seen. PANCREAS: Unremarkable. SPLEEN: Unremarkable. ADRENAL GLANDS: Unremarkable. KIDNEYS, URETERS, AND BLADDER: Dueñas catheter seen in the bladder lumen. No hydronephrosis or nephrolithiasis. No ureteral calculi. STOMACH AND BOWEL: Edema or loops of small bowel suggesting moderate small bowel enteritis. Free air in the upper abdomen is seen, suggesting perforated bowel. No obstruction. APPENDIX: No CT evidence for appendicitis. PERITONEUM: Moderate ascites in the abdomen and pelvis. No free air under the diaphragm. LYMPH NODES: No lymphadenopathy. REPRODUCTIVE: Unremarkable as visualized. VASCULATURE: No aortic aneurysm. ABDOMINAL WALL AND SOFT TISSUES: There is air in the subcutaneous soft tissue seen anteriorly, suggesting recent postsurgical changes; please correlate with surgical history. BONES: No fracture or suspicious osseous abnormality. IMPRESSION: 1. Moderate small bowel enteritis with free air in the upper abdomen, suggesting perforated bowel versus post surgical changes. No obstruction. 2. Moderate ascites in the abdomen and pelvis. 3. Air in the subcutaneous soft tissue anteriorly, suggesting recent postsurgical changes; please correlate with surgical history. /[place] DICTATED BY: EDWIGE LEDESMA MD DATE: 07/20/252317 ELECTRONICALLY SIGNED BY: EDWIGE LEDESMA MD DATE: 07/20/252317 ASSESSMENT: Acute kidney injury Bacterial peritonitis Cholelithiasis 2 mm perforation of the colonic anastomosis Anastomosis leak Bilious peritonitis S/p Diagnostic laparoscopy, abdominal washout, drain place ment and diverting loop ileostomy creation Atrophic vaginitis Anemia Diabetes Mellitus Type 2 Septic Shock Cirrhosis of liver Oesophageal Varices PLAN: Labs, diagnostic, radiologic exams reviewed and interpreted by myself and taylor abel physician. We have reviewed external records in detail Require close monitoring of renal function and electrolytes Order CBC, CMP, and electrolytes in am Continue with antibiotics BiPAP as necessary, for respiratory distress Monitor blood pressure adjust medication doses as needed Avoid hypotensive episodes May use Dilaudid 0.5 mg IV every 6 hours as needed for severe pain Monitor blood sugars Strict intake, output, and daily weight should be monitored Please renally adjust medications Avoid nephrotoxic and nonsteroidal drugs Avoid contrast if possible Will continue to monitor renal function, anemia, electrolytes Treatment plan discussed with patient Questions were answered We have discussed with the other team physicians in detail about the care plan We will continue to monitor the patient closely ATTESTATION BY PHYSICIAN I have seen and examined the patient. I reviewed the documentation, medical decision making, and treatment plan as noted by the mid-level provider above. I agree with the findings and plan of care. CIELO PORTILLO MD, [facility] Aug 09, 2025 12:57
--- NOTE | 2025-08-09 13:08 | PN ---
[facility] PROGRESS NOTE Date of Service: Aug 09, 2025 Time of Service: 9:00 SUBJECTIVE: Ms. Gray is a 55-year-old female that was seen and examined today on 07/20/2025. Patient reports that she came to the emergency department with a chief complaint of abdominal pain. Onset was 07/09/2025. Location is all four quadrants. Duration is constant. Character is described as pressure and " like I have a lot of gas trapped. " there was no alleviating factors. There was no aggravating factors. Patient reports associated abdominal swelling. 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 After the discharge she was taking pain medications and her condition started worsening after few days. She is in constant follow up with Dr Gann. Today in the emergency department WBCs 21.2, left shift neutrophils 85.5%, BUN 26, creatinine 3.1, GFR 17, lactic acid 8.0, no urinalysis has been collected or sent to lab, CT of abdomen and pelvis showed of free air in the abdomen which could be a suspected bowel perforation versus postsurgical changes, moderate ascites, fissure post surgical changes. Chest x-ray shows right pleural effusion. Additionally patient had a heart rate of 125, respirations 26, together with leukocytosis and lactic acidosis patient met clinical sepsis criteria additionally patient's blood pressure dropped to 85/50 mmHg requiring vasopressor support therefore meeting criteria for septic shock. Patient will be admitted to the intensive care unit. Emergency room physician spoke with patient's surgeon, Dr. Gann who requested patient be admitted under hospitalist service and she will follow this case along. 07/21/25 Patient was evaluated at the bedside. She was accompanied by her daughter. She is oriented to the time, place and person. She complained of abdominal pain in all the quadrants. She hasn't had bowel movement since Saturday and also is unable to pass flatus at this time. She has guarding, rigidity and tenderness all over the abdomen, showing the signs of peritonitis. She was seen by Dr Gann this morning and is planned to be taken to OR this afternoon. Dueñas catheter is in place, as she wasn't able to pass the urine. There is no fever, chills and any other signs of infection. 07/22/25 Patient was evaluated at the bedside. She was accompanied by her daughter. She is oriented to the time, place and person. She underwent Diagnostic laparoscopy, abdominal washout, drain placement and diverting loop ileostomy creation, The procedure revealed Bilious peritonitis, 2 mm perforation of the colonic anastomosis. She is hemodynamically stable with Blood pressure of 110/73 and HR of 83. Currently she complains of abdominal pain which is getting better than yesterday, its 3-4/10 intensity. There is no rigidity. She is anxious about the outcomes and had discussion regarding her current clinical status and lab parameters. There is no fever, chills and any other signs of infection. 07/23/25 Patient was evaluated at the bedside. She was accompanied by her daughter. She is oriented to the time, place and person. She status post diagnostic laparoscopy, abdominal washout, drain placement and diverting loop ileostomy creation. Currently she complains of abdominal pain which is 5/10 intensity. She also complaints of mild lower back pain There is no fever, chills and any other signs of infection. She has CHRIS drain in-situ with clear fluid along with colostomy bag. She is currently tolerating clear liquid diet. 07/24/2025 Patient is seen and examined at the bedside. Vitals blood pressure ranging in 100s/50s, pulse rate 50s, SpO2 greater than 95% on room air. She mentions about experiencing pressure-like discomfort on the right side of the abdomen and pain when she tries to eat. No acute events last night. She denies fever, chills, nausea, vomiting, chest pain. CHRIS output approximately 100cc/hr, serosanguineous fluid. Ileostomy bag in place. She is tolerating clear liquid diet without any nausea/vomiting. Labs hemoglobin 9.8, BUN 38, creatinine improved from 1.6-1.1. 07/25/2025 Patient is seen and examined at the bedside. She complains of abdominal pain which is 7/10 in intensity. No acute events last night. She denies fever, chills, nausea, vomiting, chest pain. CHRIS output approximately 100cc/hr, serosanguineous fluid. Ileostomy bag in place. The patient has been started on spironolactone 25mg BID and Lasix 20 mg once daily. There is high output from CHRIS but it is clear serous, most likely related to her ascites from her history of liver cirrhosis. She is tolerating clear liquid diet without any nausea/vomiting. 07/26/2025 Patient is seen and examined at the bedside. She complains of abdominal pain which remains constant. No acute events last night. She denies fever, chills, nausea, vomiting, chest pain. Patient is status post with a CHRIS drain. The drain has been collecting the serosanguineous fluid secondary to ascites. She has been tolerating liquid diet and her diet has been advanced to soft diet. She still has bloating for which probiotics and fibers has been recommended. Hemoglobin has gradually trended down to 9.2 and was given IV Venofer. Patient to get up and ambulate and work with physical therapy. 07/27/2025 Patient is seen and examined at the bedside. She complains of abdominal pain which is 6/10 in intensity. No acute events last night. She denies fever, chills, nausea, vomiting, chest pain. Patient is unable to tolerate the soft diet, hence she is currently receiving the liquid diets. The CHRIS drain output is still high and there was small amount of drainage observed in the right ileostomy. 07/28/2025 Patient is seen and examined at the bedside. She complains of abdominal pain which is 9/10 in intensity. No acute events last night. She denies fever, chills, nausea, vomiting, chest pain. Patient reported pain after eating but no nausea or vomiting. WBC is gradually trending up from 8.3-7.3-11.1-11.8. She had lidocaine patch placed this morning. She was started on simethicone 80 mg yesterday. Pertinent she is currently receiving Dilaudid 0.5 mg. Abdominal ultrasound has been ordered for further assessment. 07/29/2025 Patient is seen and examined at the bedside. She continues to complain of severe abdominal pain, rated 9/10 in intensity, unchanged from prior. She is currently receiving Dilaudid 0.5 mg for pain. She reports discomfort related to Dueñas catheterization. She denies fever, chest pain, nausea or vomiting at this time. No acute events were reported overnight. Blood pressure noted today is noted to be 98/54 mm Hg which is slightly low. Per surgery team, stoma is likely to be removed today. Hemoglobin has trended down from 9.7 g/dl to 9.0 g/dl. 07/30/2025 Patient is seen and examined at the bedside. She continues to complain of severe abdominal pain. Her abdominal distention has slightly improved. Dueñas's catheter was removed due to persistent discomfort. We will continue with scheduled removal of the ascites fluid and from CHRIS bulb. Ultrasound of abdomen was concerning for cholelithiasis with biliary sludge and gallbladder distention. HIDA scan was performed today. If consistent with cholecystitis patient will need cholecystostomy tube placement. 07/31/2025 Patient is seen and examined at the bedside. She was accompanied by her daughter. She continues to complain of severe abdominal pain. She is currently on Dilaudid 0.5mg Q4H PRN, which relieves the symptoms for 2-3 hours, after that she develops same level of pain and discomfort again. Currently awaiting the HIDA scan results. Her sodium level is 133 and albumin level is trending downwards from 2.3 to 2.1. Her Iron panel results showed: Iron 20L, TIBC 147L and %sat 16.3L. For her continuos pain she is started on Fentanyl 25mcg. CHRIS drain culture has beens sent. Based on the results of HIDA scan, CT chest will be planned. 08/01/2025: Patient is seen and examined this morning at bedside. She was accompanied by her daughter. The patient complains of severe abdominal pain. She is currently being managed with [place], and Dilaudid for breakthrough pain. HIDA scan results are back, and show acute cholecystitis. Surgery has been made aware of the results. IR has been consulted for cholecystostomy tube placement. The patient will be started on PPN, as recommended by general surgery. The patient follows with Dr. Sol outpatient for her liver cirrhosis. The patients daughter would like her marine resource economist Dr. Sol to be involved in the patients care, and be updated with her status. 08/02/2025: Patient is seen and evaluated in the room 432. She was accompanied by her daughter. She complains of severe abdominal pain. She also complained of bleeding through her vagina, pink tinged urine. Her vitals are in the normal range. Her labs are in the normal range except for Hb is 8.6, Na is 135, K is 5.2, BUN is 4, Glucose is 150, CRP is 103.90. She went for placement of cholecystectomy tube by IR. We did a pelvic exam and ordered a vaginal estrogen cream and urinalysis. Also for her hyperkalemia we checked the potassium again and its 4.1. So we will repeat the labs tomorrow. We ordered a dose of albumin for her. 08/03/2025: Patient is seen and evaluated in the room 432. She has mild abdominal pain today. Her pain improved after the placement for cholecystotomy tube. Her vitals are in the normal range. Her labs are normal except for hemoglobin 8.2, glucose 156, CRP 89.8. Her aerobic and anaerobic culture of drain showed no growth. Gastroenterology saw the patient and they recommended 25 grams of 25% IV albumin q12H for 3 days. Her bleeding through the vagina decreased. The drainage through the left abdomen is 100ml, right abdomen is 20ml, left anterior abdomen 5ml. 08/04/2025: Patient is seen and evaluated in the room 432. She has abdominal pain today. Her vitals are in the normal range. Her labs are normal except for Hb is 8, CRP is 72.10, glucose is 130. Aerobic and anaerobic drain culture showed no growth. She is not able to tolerate her food. The drainage through the left abdomen is 100ml, right abdomen is 20ml, left anterior abdomen 5ml. Gastroenterology is planning to do EGD tomorrow. Surgery wanted to do a CT abdomen and pelvis with IV contrast. CT scan showed perisplenic and infrasplenic fluid collection measuring 6.0 x 6.1 x 8.9 cm, splenomegaly, with spleen measuring 15.2 cm, cholecystostomy tube in situ with decompressed gallbladder, abdominal drain in situ with tip in the pelvis. We ordered T.bilirubin and we will monitor the output from colostomy tube. We are also planning to add metoclopramide. 08/05/2025: Patient is seen and evaluated in the room 432. She has abdominal pain today. Her abdomen is tender to touch and warm. Her vital signs are in the normal range except for BP is 117/45. Her labs are normal except for Hb is 8.2, sodium is 135, creatinine is 0.3, CRP is 60.9 The drain output from left abdomen is 40ml, left anterior abdomen 0ml, right abdomen 0ml. Her saturation is 100% on 10L of O2. Her labs are in the normal range except for Hb is 8.2, HCT is 25.9, sodium is 135, glucose is 107, CRP is 60.90. She underwent endoscopy today and they did biopsy from 3 sites. GI said that they will consult radiology to check whether CHRIS drain and cholecystostomy tube are in place. General surgery will consult IR to evaluate perisplenic fluid collection for potential aspiration. 08/06/2025: Patient is seen and evaluated in the room 432. She has abdominal pain today. Her abdomen is tender to touch and warm. Her vital signs are in the normal range except for 97/63. Her labs are in the normal range except for Hb is 8.1, sodium is 135, blood glucose is 151, CRP 53.60. We are waiting for IR consult for evaluation and for potential aspiration of perisplenic fluid. The drain output from right abdomen is 20ml. 08/07/2025: Patient is seen and evaluated in the room 432. She has abdominal pain today. Her abdomen is tender to touch and warm. Her vital signs are in the normal range except for blood pressure which is 102/60. Her labs are in the normal range except for Hb is 8.5, WBC is 4.4, RDW is 17.3, sodium is 134, glucose is 147. We are waiting for IR consult for evaluation and for potential aspiration of perisplenic fluid. The drain output from right abdomen is 20ml. The LOGISTICS SUPERVISOR told me that she eats her food after taking her pain medications. Nurse is planning to start full liquid diet for lunch. 08/08/2025: She was evaluated at the bedside this morning. She is AAO x3. she complained of epigastric pain which gets worse with food . Moderate tenderness was appreciated on the epigastric region. Her blood pressure is 99/46, pulse 80. Remarkable lab is for WBC of 4.8, hemoglobin 9, CRP 43.90. She is scheduled with IR for perisplenic fluid aspiration and checking the position of cholecystostomy tube. She is on full liquid diet. She is on Zosyn, fluconazole. Surgery, GI, ID on the board. Rest of the plan as discussed below. 08/09/2025: Patient went to custodial laborer for PROCEDURE. As per nurse, her cholecystostomy tube was already correctly positioned but had some stones so tube was flushed. She complained of epigastric and pelvic pain. For pain control, fentanyl patch has been ordered. She is pending perisplenic fluid aspiration by IR. Her blood pressure is 98/58, pulse 90. She is currently NPO. She is on Zosyn, fluconazole. Surgery, GI, ID on the board. Rest of the plan as discussed below. REVIEW OF SYSTEMS CONSTITUTIONAL: No fever, chills, or night sweats. NEUROLOGICAL: Denies headache, sensory and motor deficit. CARDIOVASCULAR: Denies any exertional angina, dyspnea on exertion, palpitations. PULMONARY: Denies any shortness of breath, cough, phlegm/sputum, hemoptysis, pleuritic chest pain. GASTROINTESTINAL: Patient complains of diffuse abdominal pain. She also has bloating. Denies nausea, vomiting. GENITOURINARY: Denies frequency, urgency, nocturia, hematuria or incontinence. PHYSICAL EXAM GENERAL APPEARANCE: The patient is alert, awake and oriented and bedbound. NEUROLOGICAL: No sensory and motor deficits. CHEST: Normal chest expansion. LUNGS: Normal Vesicular breath sound. Absence of any rales, rhonchi or any wheezing. CARDIOVASCULAR: Regular. S1 and S2 normal. No appreciable rubs, murmurs or gallops. ABDOMEN: Abdomen is soft and slightly tender. CHRIS drain is placed. Ileostomy creation. Cholecystostomy tube is placed. Absence of guarding, rigidity and rebound tenderness. GENITOURINARY: No suprapubic tenderness. No costovertebral angle tenderness. Vital Signs (last 8hr) Date Time Temp Pulse Resp B/P (MAP) Pulse Ox O2 Delivery O2 Flow Rate FiO2 08/09/25 12:00 98.4 87 20 100/66 95 Room Air 08/09/25 08:08 98.1 90 18 98/58 96 Room Air 08/09/25 08:00 Room Air* 0 21 08/09/25 05:59 98.2 83 19 117/71 99 Room Air LABS: Laboratory: Test 08/09/25 11:38 08/09/25 07:42 08/09/25 03:33 08/08/25 03:43 Range/Units Whole Blood Glucose 107 70-110 MG/DL Prothrombin Time 13.8 H 9.6-11.6 SEC Prothromb Time International Ratio 1.34 H 0.85-1.15 Activated Partial Thromboplast Time 32.9 26.3-35.5 SEC White Blood Count 4.3 L 4.8-10.8 K/uL Red Blood Count 3.13 L 4.00-5.50 MIL/uL Hemoglobin 9.3 L 12.0-16.0 g/dL Hematocrit 29.6 L 36-48 % Mean Corpuscular Volume 94.6 79-99 fL Mean Corpuscular Hemoglobin 29.7 27.0-33.0 pg Mean Corpuscular Hemoglobin Concent 31.4 L 32.0-36.0 g/dL Red Cell Distribution Width 17.6 H 11.0-15.5 % Platelet Count 153 130-400 K/uL Mean Platelet Volume 10.2 7.5-10.5 fL Immature Granulocyte % (Auto) 1.6 H 0-1 % Neutrophils (%) (Auto) 64.0 40.0-77.0 % Lymphocytes (%) (Auto) 14.4 L 21.0-51.0 % Monocytes (%) (Auto) 13.5 H 3.0-13.0 % Eosinophils (%) (Auto) 5.8 0.0-8.0 % Basophils (%) (Auto) 0.7 0.0-5.0 % Neutrophils # (Auto) 2.8 1.8-7.7 K/uL Lymphocytes # (Auto) 0.6 L 1.0-4.8 K/uL Monocytes # (Auto) 0.6 0.1-1.0 K/uL Eosinophils # (Auto) 0.25 0.00-0.70 K/uL Basophils # (Auto) 0.03 0.00-0.20 K/uL Absolute Immature Granulocyte (auto 0.07 0-1 K/uL Nucleated Red Blood Cells 0.0 0.0-0.19 % Sodium Level 135 L 136-145 mmol/L Potassium Level 4.4 3.5-5.1 mmol/L Chloride Level 104 101-111 mmol/L Carbon Dioxide Level 22 21-32 mmol/L Blood Urea Nitrogen 12 7-18 mg/dL Creatinine 0.6 0.5-1.0 mg/dL Glomerular Filtration Rate Calc 105 >90 mL/min Random Glucose 128 H 70-105 mg/dL Total Calcium 8.6 8.5-10.1 mg/dL Magnesium Level 2.00 1.80-2.40 mg/dL Total Bilirubin 0.5 0.2-1.0 mg/dL Aspartate Amino Transf (AST/SGOT) 30 10-37 U/L Alanine Aminotransferase (ALT/SGPT) 13 12-78 U/L Alkaline Phosphatase 107 50-136 U/L Total Protein 7.1 6.0-8.3 g/dL Albumin 2.6 L 3.5-5.0 g/dL C-Reactive Protein, Quantitative 43.90 H 0.5-3.0 mg/L Test 08/07/25 16:07 Range/Units Bedside Glucose Comment Notified Nurse Current Medications Medications (Trade) Dose Ordered Sig/Gergory Route PRN Reason Start Time Stop Time Status Last Admin Dose Admin Acetaminophen (TYLenol 500MG TAB) 500 mg Q6H6 PRN PO MILD PAIN (1-3) 07/27/25 16:30 08/07/25 12:15 DC Acetaminophen (TYLenol 500MG TAB) 500 mg Q6H6 PRN PO MILD PAIN (1-3) 08/07/25 10:00 08/07/25 10:03 DC Acetaminophen (TYLenol 650MG SUPPOSITORY) 650 mg Q6H PRN RC MILD PAIN (1-3) 07/21/25 00:00 07/27/25 16:22 DC Acetaminophen/ Hydrocodone Bitart (NORco 5/325MG) 1 tab Q4H PRN PO MODERATE PAIN (4-6) 07/31/25 16:30 08/05/25 16:29 DC 08/05/25 14:57 1 TAB Acetaminophen/ Hydrocodone Bitart (NORco 5/325MG) 1 tab Q4H PRN PO MODERATE PAIN (4-6) 08/07/25 12:30 08/12/25 12:29 08/08/25 22:09 1 TAB Albumin Human 50 ml @ 100 mls/hr Q12H IV 08/02/25 21:30 08/05/25 09:59 DC 08/05/25 10:12 100 MLS/HR Albumin Human 50 ml @ 0 mls/hr Q12H IV 08/02/25 18:30 08/02/25 20:04 DC Albumin Human 100 ml @ 0 mls/hr ONCE IV 07/25/25 12:00 07/26/25 11:59 DC 07/25/25 13:43 100 MLS/HR Clotrimazole (Lotrimin) 1 GM BID TP 07/29/25 21:00 08/28/25 20:59 08/08/25 20:21 30 GM Cyclobenzaprine HCl (Cyclobenzaprine HCl) 5 mg TID PO 07/25/25 14:00 07/26/25 14:00 DC 07/26/25 14:19 5 MG Fentanyl (DURAgesic 12 MCG/HR PATCH) 12 mcg Q72H TD 08/09/25 13:00 08/14/25 12:59 Fentanyl (DURAgesic 25 MCG/HR PATCH) 25 mcg Q72H TD 07/31/25 14:30 07/31/25 14:44 DC Fluconazole/ Sodium Chloride (DiFLUCan 200 MG/ NS 100 ML) 200 mg Q24H IVPB 07/21/25 21:00 08/20/25 20:59 08/08/25 20:20 200 MG Furosemide (LASix 20MG TAB) 20 mg DAILY PO 07/25/25 11:00 08/02/25 11:53 DC 08/02/25 09:42 20 MG Gabapentin (NEURontin 100 mg CAP) 100 mg TID PO 07/29/25 14:00 08/02/25 09:21 DC 08/01/25 20:14 100 MG Hydromorphone HCl (DiLAUDid 0.5MG INJ) 0.5 mg Q4H PRN IVP SEVERE PAIN (7-10) 07/24/25 10:00 07/29/25 09:59 DC 07/29/25 08:22 0.5 MG Hydromorphone HCl (DiLAUDid 0.5MG INJ) 0.5 mg Q4H PRN IVP SEVERE PAIN (7-10) 07/29/25 13:30 08/03/25 13:29 DC 08/03/25 13:09 0.5 MG Hydromorphone HCl (DiLAUDid 0.5MG INJ) 0.5 mg Q4H PRN IVP SEVERE PAIN (7-10) 08/03/25 18:00 08/07/25 10:03 DC 08/07/25 05:09 0.5 MG Hydromorphone HCl (DiLAUDid 0.5MG INJ) 0.5 mg Q4H PRN IVP SEVERE PAIN (7-10) 08/07/25 10:00 08/12/25 09:59 08/09/25 11:51 0.5 MG Insulin Human Regular (humuLIN R 100 UNIT/ML 3ML) INSULIN SLIDING SCAL... ACHS SQ 07/21/25 07:30 08/20/25 07:29 07/22/25 20:40 3 UNIT Lactated Ringer's 1,000 ml @ 75 mls/hr [id number] IV 07/21/25 00:00 07/21/25 13:17 DC 07/21/25 02:57 75 MLS/HR Lactated Ringer's 1,000 ml @ 75 mls/hr [id number] IV 07/21/25 13:30 07/24/25 11:09 DC 07/24/25 09:27 75 MLS/HR Lactobacillus Rhamnosus ([facility] ActiveReplay & Fooda) 1 each DAILY20 PO 07/26/25 20:00 08/25/25 19:59 08/08/25 20:21 1 EACH Lidocaine (Lidoderm Patch 5%) 1 patch DAILY TP 07/28/25 09:00 08/27/25 08:59 08/08/25 08:18 1 PATCH Lidocaine HCl/Al Hydroxide/Mg Hydroxide/ Dicyclomine HCl 20ML OR AD ONCE PO 08/06/25 16:30 08/07/25 16:29 DC 08/06/25 16:45 20 ML Magnesium Sulfate 50 ml @ 0 mls/hr PROTOCOL PRN IV MAGNESIUM PROTOCOL 07/21/25 07:00 08/20/25 06:59 08/01/25 06:05 25 MLS/HR Metoclopramide HCl (regLAN 10MG IV) 5 mg BID IVP 08/04/25 21:00 09/03/25 20:59 08/08/25 20:20 5 MG Metronidazole/ Sodium Chloride (flaGYL) 500 mg Q8H IV 07/21/25 14:00 07/21/25 13:40 DC Morphine Sulfate (morPHINE 2MG SYG) 2 mg Q4H PRN IVP SEVERE PAIN (7-10) 07/21/25 00:30 07/21/25 13:18 DC 07/21/25 04:46 2 MG Morphine Sulfate (morPHINE 4MG SYG) 4 mg Q3H PRN IV MODERATE PAIN (4-6) 07/21/25 13:30 07/26/25 16:29 DC 07/26/25 10:51 4 MG Norepinephrine 250 ml @ 0 mls/hr PROTOCOL IV 07/20/25 23:30 08/03/25 08:27 DC 07/21/25 10:56 18.45 MLS/HR Ondansetron HCl (zoFRAN 4MG INJ) 4 mg Q4H PRN IVP NAUSEA 07/21/25 13:30 08/20/25 13:29 Ondansetron HCl (zoFRAN 4MG INJ) 4 mg Q6H PRN IV NAUSEA/VOMITING 07/21/25 00:00 07/21/25 13:18 DC Pantoprazole Sodium (PROTonix 40MG INJ) 40 mg BID IV 07/26/25 21:00 08/20/25 08:59 08/08/25 20:20 40 MG Pantoprazole Sodium (PROTonix 40MG INJ) 40 mg BID IVP 08/05/25 21:00 08/06/25 08:39 DC 08/05/25 20:25 40 MG Pantoprazole Sodium (PROTonix 40MG INJ) 40 mg DAILY IV 07/21/25 09:00 07/26/25 09:31 DC 07/26/25 08:55 40 MG Pharmacy Profile Note (Pharmacy Communication) 1 each ONCE MISC 07/21/25 15:30 07/21/25 15:16 DC Pharmacy Profile Note (Pharmacy Communication) 1 each ONCE MISC 08/06/25 16:00 08/07/25 07:07 DC Piperacillin Sod/ Tazobactam Sod 50 ml @ 200 mls/hr ONCE STAT IVPB 07/20/25 19:15 07/20/25 19:29 DC 07/20/25 20:32 200 MLS/HR Piperacillin Sod/ Tazobactam Sod (Zosyn 3.375gm+NS 50ml) 3.375 gm Q12H IV 07/21/25 00:00 07/31/25 00:00 DC 07/30/25 23:55 3.375 GM Piperacillin Sod/ Tazobactam Sod (Zosyn 3.375gm+NS 50ml) 3.375 gm Q8H IVPB 07/31/25 11:30 08/10/25 11:29 08/09/25 11:50 3.375 GM Potassium Chloride 100 ml @ 100 mls/hr AD PRN IV POTASSIUM PROTOCOL 07/24/25 08:30 08/23/25 08:29 07/30/25 06:23 100 MLS/HR Potassium Chloride (K-Dur/Klor-Con 20meq) 20 meq AD PRN PO POTASSIUM PROTOCOL 07/24/25 08:30 08/23/25 08:29 07/27/25 20:33 20 MEQ Potassium Chloride (KCl 10% Elixir 20meq/15ml) 20 meq AD PRN PO POTASSIUM PROTOCOL 07/24/25 08:30 08/23/25 08:29 07/31/25 08:15 20 MEQ Psyllium Hydrophilic Mucilloid (Metamucil) 1 tbs BID PO 07/26/25 21:00 08/25/25 20:59 08/08/25 20:21 1 TBS Simethicone (Mylicon) 80 mg Q6H6 PO 07/27/25 12:00 08/26/25 11:59 08/08/25 23:32 80 MG Sodium Bicarbonate 150 meq/Sodium Chloride 1,150 ml @ 0 mls/hr Q0M IVP 07/21/25 14:00 07/26/25 09:31 DC Sodium Chloride (NS 50ml) 50 ml AD IV 07/31/25 11:30 07/31/25 11:12 DC Sodium Chloride (Normal Saline Flush) 10 ml Q8H IJ 08/09/25 11:00 09/08/25 10:59 Spironolactone (Aldactone 25mg) 25 mg BID PO 07/25/25 21:00 07/26/25 09:01 DC 07/26/25 08:56 25 MG Sucralfate (Carafate) 1 gm ACHS PO 07/29/25 21:00 08/28/25 20:59 08/08/25 20:20 1 GM Thiamine HCl (Vitamin B-1) 100 mg DAILY IVP 07/22/25 21:00 08/21/25 20:59 08/08/25 08:19 100 MG Thiamine HCl 100 mg/Sodium Chloride 50 ml @ 100 mls/hr Q24H IM 07/21/25 15:30 07/21/25 16:25 DC Vancomycin HCl (Vancomycin 1g/ 250ml Kit) 1 gm ONCE STAT IV 07/20/25 21:23 07/20/25 21:26 DC 07/20/25 22:06 1 GM Vasopressin 20 units/Sodium Chloride 100 ml @ 0 mls/hr PROTOCOL IV 07/21/25 00:30 08/03/25 08:27 DC 07/21/25 00:10 9 MLS/HR DIAGNOSTICS / RADIOLOGY: PATIENT: DALLAS BUCHANAN MR#: [id number] : 1970 SEX: F AGE: 55 LOCATION: [facility] ORDER 36 STATUS: ADM IN REPORT#: [id number] SERVICE [id number] REASON: epigastric pain. not tolerating meals. ORDERING PHYSICIAN: SUSAN GANN MD PROCEDURE: ABD PEL W - CT ABDOMEN/PELVIS W/CONTRAST EXAM: CT Abdomen and Pelvis with IV contrast CLINICAL HISTORY: epigastric pain. not tolerating meals. TECHNIQUE: Axial computed tomography images of the abdomen and pelvis with intravenous contrast. CONTRAST: with intravenous contrast. COMPARISON: Compared with the previous CT dated 07/20 and [facility] dated 07/29 FINDINGS: LUNG BASES: Grossly stable atelectasis and scarring at the lung bases. LIVER: Unremarkable. GALLBLADDER AND BILE DUCTS: The gallbladder is decompressed with a cholecystostomy tube in situ. PANCREAS: Unremarkable. SPLEEN: The spleen is enlarged in size, measuring 15.2 cm. ADRENAL GLANDS: Unremarkable. KIDNEYS, URETERS, AND BLADDER: No hydronephrosis or nephrolithiasis. No ureteral calculi. The urinary bladder is unremarkable. STOMACH AND BOWEL: The ileostomy site appears unremarkable. Interval resolution of previously seen moderate small bowel enteritis. No obstruction. APPENDIX: No CT evidence for appendicitis. PERITONEUM: Near complete interval resolution of previously seen moderate ascites in the abdomen and pelvis. Collection in the perisplenic and infra-splenic region measuring 6.0 x 6.1 x 8.9 cm. Interval resolution of previously seen pneumoperitoneum. Diffuse mesenteric fat stranding, likely postoperative changes. LYMPH NODES: No lymphadenopathy. REPRODUCTIVE: Unremarkable as visualized. VASCULATURE: No aortic aneurysm. ABDOMINAL WALL AND SOFT TISSUES: Interval resolution of previously seen subcutaneous emphysema in the anterior abdominal wall and left lateral chest wall. Abdominal drain in situ with tip in the pelvis. BONES: No fracture or suspicious osseous abnormality. IMPRESSION: 1. Perisplenic and infrasplenic fluid collection measuring 6.0 x 6.1 x 8.9 cm. 2. Splenomegaly, with spleen measuring 15.2 cm. 3. Cholecystostomy tube in situ with decompressed gallbladder. 4. Abdominal drain in situ with tip in the pelvis. 5. No acute findings in the remainder of the abdomen and pelvis. /[facility] DICTATED BY: ELDON MILLER Jr., MD DATE: 08/04/251636 ELECTRONICALLY SIGNED BY: ELDON MILLER Jr., MD DATE: 08/04/25 163 PATIENT: DALLAS BUCHANAN MR#: [id number] : 1970 SEX: F AGE: 55 LOCATION: 4AH ORDER 1524 STATUS: ADM IN REPORT#: [id number] SERVICE 1523 REASON: cholecystitis ORDERING PHYSICIAN: BENEDICTO OBRIEN Jr. PROCEDURE: HIDA PHARM - NM HIDA/HEPATOBILI W/ PHARMACO EXAM: HIDA scan. INDICATION: Severe RUQ Pain to rule out cholecystitis. REFERENCE EXAMINATION: [facility]G July 29, 2025. TECHNIQUE: Sequential images of the abdomen were obtained in the anterior projection after IV administration of 6.0 mCi of Tc99m Mebrofenin. FINDINGS: Tracer activity throughout the liver is homogeneous without focal defects. There is prompt excretion of the pharmaceutical into the bile ducts and into the small bowel, without evidence of obstruction. There is no visualization of the gallbladder at the conclusion of the examination. IMPRESSION: Scintigraphic findings are compatible with acute cholecystitis. /[facility] DICTATED BY: ELDON MILLER Jr., MD DATE: 08/01/25 1011 ELECTRONICALLY SIGNED BY: ELDON MILLER Jr., MD DATE: 08/01/25 1011 PATIENT: DALLAS BUCHANAN MR#: [id number] : 1970 SEX: F AGE: 55 LOCATION: 4AH ORDER 10 STATUS: ADM IN REPORT#: [id number] SERVICE 09 REASON: ABD PAIN ORDERING PHYSICIAN: NIKKI MUNOZ NP PROCEDURE: ABD 1VW - ABD 1VW EXAM: CR Abdomen, 1 view. CLINICAL HISTORY: Pain. COMPARISON: None provided. FINDINGS: Dilated small bowel loops are seen in mid abdomen. There is a density in the pelvis which may represent a send drainage catheter. No free air is evident. No abnormal calcification. No aggressive appearing osseous lesion. IMPRESSION: Dilated small bowel loops are seen in mid abdomen. Density in the pelvis which may represent a send drainage catheter. /[facility] DICTATED BY: TOBI LEAHY MD DATE: 07/29/251032 ELECTRONICALLY SIGNED BY: TOBI LEAHY MD DATE: 07/29/251032 PATIENT: DALLAS BUCHANAN MR#: [id number] : 1970 SEX: F AGE: 55 LOCATION: 4AH ORDER 18 STATUS: ADM IN REPORT#: [id number] SERVICE 15 REASON: Liver cirrhosis ORDERING PHYSICIAN: LISET DOUGLAS MD PROCEDURE: ABDOMEN - US ABDOMINAL COMPLETE EXAM: US Abdomen complete CLINICAL HISTORY: Liver cirrhosis TECHNIQUE: Real-time ultrasound of the abdomen (complete) with image documentation. COMPARISON: None provided. FINDINGS: LIVER: Liver measures 12.3 cm with a heterogeneous coarse echotexture. GALLBLADDER: Gallbladder contains stones and sludge. Gallbladder is distended. COMMON BILE DUCT: No dilation. PANCREAS: Pancreas not well-visualized due to overlying bowel gas KIDNEYS: Normal renal contours. No renal mass or calculus. No hydronephrosis. SPLEEN: Normal in size and echogenicity. No mass identified. AORTA: No aneurysm. IVC: Unremarkable as visualized. MISCELLANEOUS: Small amount of abdominal ascites. IMPRESSION: 1. Cirrhotic-appearing liver. 2. Cholelithiasis and biliary sludge with gallbladder distension. 3. Small volume ascites. /[facility] DICTATED BY: CYNTHIA JULIAN MD DATE: 07/29/251055 ELECTRONICALLY SIGNED BY: CYNTHIA JULIAN MD DATE: 07/29/251055 PATIENT: DALLAS BUCHANAN MR#: [id number] : 1970 SEX: F AGE: 55 LOCATION: 2BH ORDER 1108 STATUS: ADM IN REPORT#: [id number] SERVICE 110 REASON: sob ORDERING PHYSICIAN: PREET BOSTON MD PROCEDURE: CXR1VW - CHEST 1VW CHEST 1VW REASON: sob COMPARISON: Study from 07/21/2025 is available. FINDINGS: Single view of the chest was obtained. Lungs are clear. Heart size is normal. There is no pulmonary vascular congestion. There is a right-sided PIC catheter with tip in superior vena cava. There is a nasogastric tube with the tip in the fundus of the stomach. Mediastinum and bony thorax appear unremarkable. IMPRESSION: 1. No acute cardiopulmonary process 2. The support lines are in satisfactory position.. DICTATED BY: GREER FIORE MD DATE: 07/22/251349 ELECTRONICALLY SIGNED BY: GREER FIORE MD DATE: 07/22/25 135 PATIENT: DALLAS BUCHANAN MR#: [id number] : 1970 SEX: F AGE: 55 LOCATION: 2BH ORDER 0100 STATUS: ADM IN REPORT#: [id number] SERVICE 010 REASON: PICC LINE ORDERING PHYSICIAN: HEATHER LEACH APRN PROCEDURE: CXR1VW - CHEST 1VW EXAM: CR Chest, single view. CLINICAL HISTORY: PICC line COMPARISON: Prior same day chest radiograph. FINDINGS: Right-sided PICC catheter with tip in the cavoatrial junction. Subsegmental atelectasis in the right lower lobe. No evidence of pleural effusion or pneumothorax. The cardiomediastinal silhouette is within normal limits. No acute osseous abnormality. IMPRESSION: Right-sided PICC catheter with tip in the cavoatrial junction. Subsegmental atelectasis in the right lower lobe. No evidence of pleural effusion or pneumothorax. Compared to the prior study, there is interval placement of the right-sided PICC line and interval resolution of the subsegmental atelectasis in the left lower lobe. /[facility] DICTATED BY: ELDON MILLER Jr., MD DATE: 07/21/25816 ELECTRONICALLY SIGNED BY: ELDON MILLER Jr., MD DATE: 07/21/25816 PATIENT: DALLAS BUCHANAN MR#: [id number] : 1970 SEX: F AGE: 55 LOCATION: EDH ORDER 14 STATUS: [facility] REPORT#: [id number] SERVICE 12 REASON: CHEST PAIN/COUGH ORDERING PHYSICIAN: ALHAJI SHINE NP PROCEDURE: CXR1VW - CHEST 1VW EXAM: XR Chest, 1 View. CLINICAL HISTORY: 55 year old female with chest pain and cough. COMPARISON: None provided. FINDINGS: LUNGS: The lungs demonstrate evidence of atelectasis. PLEURAL SPACES: A small right pleural effusion is present. HEART: The heart size is normal. BONES: No acute osseous abnormality. IMPRESSION: 1. Small right pleural effusion and right lung base atelectasis. /[facility] DICTATED BY: EDWIGE LEDESMA MD DATE: 07/20/252046 ELECTRONICALLY SIGNED BY: EDWIGE LEDESMA MD DATE: 07/20/252046 PATIENT: DALLAS BUCHANAN MR#: [id number] : 1970 SEX: F AGE: 55 LOCATION: EDH ORDER 14 STATUS: REG REPORT#: [id number] SERVICE 12 REASON: Abdominal Pain ORDERING PHYSICIAN: ALHAJI SHINE NP PROCEDURE: ABD PEL W - CT ABDOMEN/PELVIS W/CONTRAST ADDENDUM REPORT ADDENDUM: Results were shared by telephone at 23:23 pm on 07-20-2025 and acknowledged by Pt nurse SHIN SPARKSAZO. /[facility] EXAM: CT Abdomen and Pelvis with Intravenous Contrast CLINICAL HISTORY: 55-year-old female with abdominal pain. TECHNIQUE: Axial computed tomography images of the abdomen and pelvis with intravenous contrast. Dose reduction technique was used including one or more of the following: automated exposure control, adjustment of mA and kV according to patient size, and/or iterative reconstruction. CONTRAST: Omnipaque 350, 75 mL COMPARISON: None provided. FINDINGS: LUNG BASES: Atelectasis and scarring at the lung bases. LIVER: Unremarkable. GALLBLADDER AND BILE DUCTS: Tiny gallstone seen. PANCREAS: Unremarkable. SPLEEN: Unremarkable. ADRENAL GLANDS: Unremarkable. KIDNEYS, URETERS, AND BLADDER: Dueñas catheter seen in the bladder lumen. No hydronephrosis or nephrolithiasis. No ureteral calculi. STOMACH AND BOWEL: Edema or loops of small bowel suggesting moderate small bowel enteritis. Free air in the upper abdomen is seen, suggesting perforated bowel. No obstruction. APPENDIX: No CT evidence for appendicitis. PERITONEUM: Moderate ascites in the abdomen and pelvis. No free air under the diaphragm. LYMPH NODES: No lymphadenopathy. REPRODUCTIVE: Unremarkable as visualized. VASCULATURE: No aortic aneurysm. ABDOMINAL WALL AND SOFT TISSUES: There is air in the subcutaneous soft tissue seen anteriorly, suggesting recent postsurgical changes; please correlate with surgical history. BONES: No fracture or suspicious osseous abnormality. IMPRESSION: 1. Moderate small bowel enteritis with free air in the upper abdomen, suggesting perforated bowel versus post surgical changes. No obstruction. 2. Moderate ascites in the abdomen and pelvis. 3. Air in the subcutaneous soft tissue anteriorly, suggesting recent postsurgical changes; please correlate with surgical history. /[facility] DICTATED BY: EDWIGE LEDESMA MD DATE: 07/20/25 6931 ELECTRONICALLY SIGNED BY: DATE: EXAM: CT Abdomen and Pelvis with Intravenous Contrast CLINICAL HISTORY: 55-year-old female with abdominal pain. TECHNIQUE: Axial computed tomography images of the abdomen and pelvis with intravenous contrast. Dose reduction technique was used including one or more of the following: automated exposure control, adjustment of mA and kV according to patient size, and/or iterative reconstruction. CONTRAST: Omnipaque 350, 75 mL COMPARISON: None provided. FINDINGS: LUNG BASES: Atelectasis and scarring at the lung bases. LIVER: Unremarkable. GALLBLADDER AND BILE DUCTS: Tiny gallstone seen. PANCREAS: Unremarkable. SPLEEN: Unremarkable. ADRENAL GLANDS: Unremarkable. KIDNEYS, URETERS, AND BLADDER: Dueñas catheter seen in the bladder lumen. No hydronephrosis or nephrolithiasis. No ureteral calculi. STOMACH AND BOWEL: Edema or loops of small bowel suggesting moderate small bowel enteritis. Free air in the upper abdomen is seen, suggesting perforated bowel. No obstruction. APPENDIX: No CT evidence for appendicitis. PERITONEUM: Moderate ascites in the abdomen and pelvis. No free air under the diaphragm. LYMPH NODES: No lymphadenopathy. REPRODUCTIVE: Unremarkable as visualized. VASCULATURE: No aortic aneurysm. ABDOMINAL WALL AND SOFT TISSUES: There is air in the subcutaneous soft tissue seen anteriorly, suggesting recent postsurgical changes; please correlate with surgical history. BONES: No fracture or suspicious osseous abnormality. IMPRESSION: 1. Moderate small bowel enteritis with free air in the upper abdomen, suggesting perforated bowel versus post surgical changes. No obstruction. 2. Moderate ascites in the abdomen and pelvis. 3. Air in the subcutaneous soft tissue anteriorly, suggesting recent postsurgical changes; please correlate with surgical history. /[facility] DICTATED BY: EDWIGE LEDESMA MD DATE: 07/20/252317 ELECTRONICALLY SIGNED BY: EDWIGE LEDESMA MD DATE: 07/20/252317 ASSESSMENT: Suspected Bowel Perforation POA Perisplenic and infrasplenic fluid collection with splenomegaly Hyponatremia Bacterial peritonitis Cholelithiasis Small Bowel Obstruction, Suspected Anastomotic Leak Bilious peritonitis s/p Diagnostic laparoscopy, abdominal washout, drain placement and diverting loop ileostomy creation Atrophic vaginitis hyperkalemia Iron Deficiency anemia Diabetes Mellitus Type 2 POA Acute Kidney Injury POA Septic Shock POA Cirrhosis of liver POA Esophageal Varices Recent Robotic takedown of splenic flexure mobilization, 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 has been started by the Surgery team. -Probiotics and Fibers have been added for bloating. -Protonix IV increased to twice daily. - Patient has been started on [place] by general surgery for abdominal pain, and is advised to take Diluadid only for breakthrough pain. - Patient was started on fentanyl patch today for pain control. - HIDA scan positive for acute cholecystitis. Surgery has been made aware. - IR did a Fluoroscopy and ultrasound-guided placement of cholecystotomy tube an d cholecystogram on 08/02/2025. -Dr. Sol saw the patient and he recommended 25g of 25% albumin for 3 days. -Gastroenterology is planning to do EGD and they did biopsy from 3 sites. GI said that they will consult radiology to check whether CHRIS drain and cholecystostomy tube are in place. -Surgery wanted to do a CT abdomen and pelvis with IV contrast. CT scan showed perisplenic and infrasplenic fluid collection measuring 6.0 x 6.1 x 8.9 cm, splenomegaly, with spleen measuring 15.2 cm, cholecystostomy tube in situ with decompressed gallbladder, abdominal drain in situ with tip in the pelvis. -GI said that they will consult radiology to check whether CHRIS drain and cholecystostomy tube are in place. -She was assessed for cholecystostomy tube placement in the custodial laborer. It showed some stones and the tube was flushed. She is pending perisplenic fluid aspiration by IR today. -We ordered T.bilirubin and we will monitor the output from colostomy tube. -We are also planning to add metoclopramide. Perisplenic and infrasplenic fluid collection with splenomegaly * CT scan showed perisplenic and infrasplenic fluid collection measuring 6.0 x 6.1 x 8.9 cm, splenomegaly, with spleen measuring 15.2 cm * IR to drain the perisplenic and intra splenic fluid today. Hyponatremia * Today her sodium level is 135. * Will repeat her labs tomorrow. Bacterial Peritonitis * Post Surgical patient with Bacterial peritonitis positive for ESBL * Culture and sensitivity shows susceptibility to Zosyn, Gentamicin and Meropenem. * Likely secondary to post-operative intraabdominal infection with risk of ongoing contamination. * Currently patient is on Zosyn (Day 20) * For her continuos pain she is started on Fentanyl 25mcg. CHRIS drain culture has beens sent. Cholelithiasis * Patient complained of upper abdominal pain * Ultrasound abdomen showed: Cirrhotic-appearing liver * Cholelithiasis and biliary sludge with gallbladder distension and Small volume ascites. * Hida scan shows acute cholecystitis. * Per Surgery: IR to be consulted for cholecystostomy tube placement. * IR did a Fluoroscopy and ultrasound-guided placement of cholecystotomy tube and cholecystogram on 08/02/2025. * IR evaluated patient in the custodial laborer for cholecystostomy tube placement. Patient was found to have normally positioned tube with some stones for which the tube was flushed.. Small Bowel Obstruction (Resolved) * Patient complaints of abdominal pain which is 9/10 on intensity * Abdominal Xray showed: Dilated small bowel loops are seen in mid abdomen * Perform Serial abdominal exams * Pain management(avoid excess opioids if ileus is suspected) * Evaluate drain, bowel status * Monitor for resolution vs progression of Ileus/obstruction. 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 - CT abdominal pelvis w/contrast done on 07/20/2025 showed Free air in the upper abdomen is seen, suggesting perforated bowel vs post surgical changes. No obstruction. -underwent Diagnostic laparoscopy, abdominal washout, drain placement and di verting loop ileostomy creation for biliary peritonitis Atrophic vaginitis * Her bleeding is resolved * We did a pelvic examination. * Ordered topical estrogen. * Urinalysis showed cloudy urine, protein 30, trace occult blood, RBC is 11 to 25, WBC is 26 to 50. hyperkalemia * Today his potassium is 4.4 * Will repeat her labs tomorrow. Iron Deficiency anemia * Hemoglobin today is 9.3. * Iron sucrose (venofer) has been ordered. * Anemia panel has been ordered. Results showed Iron 24L, %sat 16.3 and TIBC 147L. 07/30/25 * Recommend trending Hgb and transfuse as needed to goal Hgb >7. * Plan to initiate the patient on Venofer, her last dose of Venofer was 200 mg on 07/26/2025 * Iron level is 20L, % saturation 11.9, TIBC 167L, Ferritin 129. 07/25/25 Septic Shock -resolved -Her WBC is 4.3 today. 08/08/2025 -Her WBC during the presentation was 21.2 -lactic acid is 1.5 on 07/31/2025 -blood and urine culture results are negative Acute Kidney Injury Resolved -Creatinine improved from 1.6-1.1-0.7-0.6-0.6-0.6-0.6-0.6 -0.5-0.6-0.6-0.5-0.5-0.3-0.6-0.4-0.6 08/09/2025 -Initial FeNA is 0.1 %, probably secondary to dehydration and NSAIDs overuse. -initial Urine sodium is < 13 and urine creatinine is 132.17. -Avoid nephrotoxic agents, eg. NSAIDS. -Weight patient daily. -Monitor intake and output. -Ordered urinalysis Cirrhosis of liver -Patient has a past history of cirrhosis of liver. - Liver functions are within normal limits. AST 20, ALT 9 and ALP 67. - Avoid NSAIDs and high dose acetaminophen. -Maintain appropriate volume of the patient. -Patient has been started on Spironolactone 25 mg b.i.d. and Lasix 20 mg once daily. 07/25/25 -Albumin was given for the hypotension. -Patients family is requesting that Dr. Sol be involved in the patients care. Supportive measures -Maintain IV fluids, correct electrolytes -Serial abdominal exams -Emergency Department Nurse on avoidance of NSAIDS and other related triggers. -Monitor Vitals and perform morning labs regularly Continue GI prophylaxis with [place] Continue DVT prophylaxis with SCDs, we will avoid heparin due to history of allergies to porcine, we will coordinate with surgery consult on initiation of other anticoagulants ATTESTATION BY PHYSICIAN I have seen and examined the patient. I reviewed the documentation, medical decision making, and treatment plan as noted by the resident above. I agree with the findings and plan of care. AYAKA BARR MD, MUHAMMAD H MD Aug 09, 2025 13:08
[2025-08-09] MEDS: MIDAZOLAM HCL 1 MG/ML 2ML VIAL ONE (13:17)
--- NOTE | 2025-08-09 13:29 | CCATH ---
STUDY: Cholecystogram. CLINICAL HISTORY: A 55-year-old with cholecystostomy for check. To the existing cholecystotomy under fluoroscopy to be in satisfactory position, contrast was injected. The study demonstrated a large filling defect in the gallbladder suggesting multiple large gallstones. There is faint visualization of the cystic duct. IMPRESSION: The cholecystotomy tube in satisfactory position with multiple large gallstones seen in the gallbladder lumen. TID: [id number] RECEIPT: [id number]
--- NOTE | 2025-08-09 14:20 | NUR ---
CT GUIDED PERISPLENIC PIGTAIL DRAINAGE CATHETER PLACEMENT PROCEDURE PERFORMED BY DR. GREER FIORE. PUNCTURE SITE LLQ. PATIENT TOLERATED PROCEDURE WELL. 8 FR PIGTAIL CATHETER PLACED TO LLQ AND CONNECTED TO ACCORDION DRAINAGE BAG. CATHETER SUTURED IN PLACE AND DRESSING APPLIED. SPECIMEN COLLECTED AND SENT TO LAB. END OF PROCEDURE AT 1410. REPORT GIVEN TO ELVA OCASIO LVN AND PATIENT TRANSPORTED TO ROOM 432 VIA BED. PATIENT IS ALERT AND TRANSFERRED IN STABLE CONDITION WITH NO C/O PAIN.
--- NOTE | 2025-08-09 14:50 | PN ---
INFECTIOUS DISEASE PROGRESS NOTE Date of Service: Aug 09, 2025 SUBJECTIVE: Patient is awake, alert and oriented x 3. There was concern for cholecystostomy tube dislodgement status post cholecystogram with findings of tube in proper position and multiple gallstones today. A CT of the abdomen and pelvis was done on 08/04/2023 which showed a Perisplenic abscess and patient is scheduled for a CT-guided drainage catheter placement by IR. Patient is afebrile, temperature is 98.1. Continues on Zosyn and fluconazole. We will continue to follow patient's care. PHYSICAL EXAM EYES: Anicteric. Pupils equal and reactive. HENT: No oral thrush seen, moist Oral mucosa. NECK: Supple, no JVD or thyromegaly. LUNGS: Good air entry. No rales, no rhonchi. CARDIOVASCULAR: S1, S2 regular. No murmur heard. ABDOMEN: Soft, non tender, bowel sounds present, no organomegaly. Left CHRIS drain. Right Ileostomy creation. Right cholecystostomy tube. CENTRAL NERVOUS SYSTEM: Awake, alert, oriented x 3. SKIN: No rashes, no swelling. LYMPHATICS: No peripheral lymphadenopathy. MUSCULOSKELETAL: No joint swelling, erythema or tenderness. EXTREMITIES: No cyanosis or clubbing. BACK: No deformity, no pressure ulcer. GENITOURINARY: No dysuria or hematuria. Vital Sign (Last 12 Hours) 08/09/25 08/09/25 08/09/25 08/09/25 05:59 08:00 08:08 12:00 Temp 98.2 98.1 98.4 Pulse 83 90 87 Resp 19 18 20 B/P (MAP) 117/71 98/58 100/66 Pulse Ox 99 96 95 O2 Delivery Room Air Room Air* Room Air Room Air O2 Flow Rate 0 FiO2 21 Intake & Output (last 24hrs) 08/08/25 08/08/25 08/09/25 15:00 23:00 07:00 Intake Total 960 ml Output Total 400 ml 1390 ml Balance -400 ml -430 ml LABS: Laboratory: Test 08/09/25 11:38 08/09/25 07:42 08/09/25 03:33 08/08/25 03:43 Range/Units Whole Blood Glucose 107 70-110 MG/DL Prothrombin Time 13.8 H 9.6-11.6 SEC Prothromb Time International Ratio 1.34 H 0.85-1.15 Activated Partial Thromboplast Time 32.9 26.3-35.5 SEC White Blood Count 4.3 L 4.8-10.8 K/uL Red Blood Count 3.13 L 4.00-5.50 MIL/uL Hemoglobin 9.3 L 12.0-16.0 g/dL Hematocrit 29.6 L 36-48 % Mean Corpuscular Volume 94.6 79-99 fL Mean Corpuscular Hemoglobin 29.7 27.0-33.0 pg Mean Corpuscular Hemoglobin Concent 31.4 L 32.0-36.0 g/dL Red Cell Distribution Width 17.6 H 11.0-15.5 % Platelet Count 153 130-400 K/uL Mean Platelet Volume 10.2 7.5-10.5 fL Immature Granulocyte % (Auto) 1.6 H 0-1 % Neutrophils (%) (Auto) 64.0 40.0-77.0 % Lymphocytes (%) (Auto) 14.4 L 21.0-51.0 % Monocytes (%) (Auto) 13.5 H 3.0-13.0 % Eosinophils (%) (Auto) 5.8 0.0-8.0 % Basophils (%) (Auto) 0.7 0.0-5.0 % Neutrophils # (Auto) 2.8 1.8-7.7 K/uL Lymphocytes # (Auto) 0.6 L 1.0-4.8 K/uL Monocytes # (Auto) 0.6 0.1-1.0 K/uL Eosinophils # (Auto) 0.25 0.00-0.70 K/uL Basophils # (Auto) 0.03 0.00-0.20 K/uL Absolute Immature Granulocyte (auto 0.07 0-1 K/uL Nucleated Red Blood Cells 0.0 0.0-0.19 % Sodium Level 135 L 136-145 mmol/L Potassium Level 4.4 3.5-5.1 mmol/L Chloride Level 104 101-111 mmol/L Carbon Dioxide Level 22 21-32 mmol/L Blood Urea Nitrogen 12 7-18 mg/dL Creatinine 0.6 0.5-1.0 mg/dL Glomerular Filtration Rate Calc 105 >90 mL/min Random Glucose 128 H 70-105 mg/dL Total Calcium 8.6 8.5-10.1 mg/dL Magnesium Level 2.00 1.80-2.40 mg/dL Total Bilirubin 0.5 0.2-1.0 mg/dL Aspartate Amino Transf (AST/SGOT) 30 10-37 U/L Alanine Aminotransferase (ALT/SGPT) 13 12-78 U/L Alkaline Phosphatase 107 50-136 U/L Total Protein 7.1 6.0-8.3 g/dL Albumin 2.6 L 3.5-5.0 g/dL C-Reactive Protein, Quantitative 43.90 H 0.5-3.0 mg/L Test 08/07/25 16:07 Range/Units Bedside Glucose Comment Notified Nurse ASSESSMENT: Acute cholecystitis, s/p cholecystostomy tube placement on 08/02/2025. Concern for cholecystostomy tube dislodgement status post cholecystogram with findings of tube in proper position and multiple gallstones. Perisplenic abscess. Persistent abdominal pain, s/p EGD with findings acute gastritis.. Hypoxic respiratory failure requiring oxygen support, resolved. Septic shock. Generalized peritonitis with ESBL and E coli infection. Infection with multidrug resistant organism. Hypoalbuminemia. Suspected bowel perforation, s/p diagnostic laparoscopy, abdominal washout, ileostomy creation and CHRIS drain placement on 07/21/2025. Diabetes mellitus. Recent colovesical fistula repair with sigmoid colon resection and anastomosis on 07/09/2025 PLAN: Continue Zosyn. Continue fluconazole. Continue pain management. Avoid nephrotoxic medications. Continue GI prophylaxis. Continue antidiabetics. Continue nutritional support, on clear liquids and PPN. Scheduled for CT-guided drainage catheter placement by intervention Radiology. This case was reviewed and discussed with my supervising physician Dr. Roger and the above assessment and plan was formulated and agreed upon. ATTESTATION BY PHYSICIAN I have seen and examined the patient. I reviewed the documentation, medical decision making, and treatment plan as noted by the mid-level provider above. I agree with the findings and plan of care. AMIE ROGER MD, [facility] Aug 09, 2025 14:50
[2025-08-10] VITALS (7 sets, daily range): BP systolic 98–112; BP diastolic 58–70; PULSE 73–94; RESP 17–18; TEMP 97.4–98.5; O2SAT 96
[2025-08-10 02:27] LABS: APPEARANCE,URINE CLEAR (CLEAR); GLUCOSE, URINE (UA) NEGATIVE (NEGATIVE); LEUKOCYTE ESTERASE ,URINE NEGATIVE Leu/uL (NEGATIVE); NITRATE,URINE NEGATIVE (NEGATIVE); OCCULT BLOOD,URINE NEGATIVE (NEGATIVE)
[2025-08-10 02:45] LABS: ADD UA MICROSCOPIC NO
[2025-08-10 05:20] LABS: NUCLEATED RED BLOOD CELLS 0.0 % (0.0-0.19); PLATELET COUNT (AUTO) 170.0 K/uL (130-400); RED BLOOD CELL COUNT(AUTO) 2.98 MIL/uL (4.00-5.50); RED CELL DISTRIBUTION WIDTH 17.5 % (11.0-15.5); WHITE BLOOD COUNT (AUTO) 5.6 K/uL (4.8-10.8)
[2025-08-10 05:52] LABS: ASPARTATE AMINOTRANSFERASE 32.0 U/L (10-37); CREATININE 0.5 mg/dL (0.5-1.0); GLOMERULAR FILTR. RATE CALC 109.0 mL/min (>90); GLUCOSE,RANDOM 156.0 mg/dL (70-105); PHOSPHORUS 2.9 mg/dL (2.5-4.9); SODIUM SERUM 134.0 mmol/L (136-145); TOTAL PROTEIN, SERUM 6.9 g/dL (6.0-8.3); UREA NITROGEN, BLOOD 16.0 mg/dL (7-18)
--- NOTE | 2025-08-10 09:38 | HMCIMG ---
[facility]: Aspiration of perisplenic fluid noted on CT infrasplenic fluid collection drainage . TECHNIQUE: Images from prior studies reviewed. Informed consent was obtained after explaining the procedure and potential complications to the patient. Time out performed. The patient was placed prone on the CT couch and images of the abdomen obtained. The left flank draped in sterile fashion. Local anesthesia was applied and under CT-fluoroscopy guidance, a 19-gauge needle introducer was advanced through the abdominal wall and into a left infrasplenic fluid collection in the left hemiabdomen. Then, over a wire the tract was dilated to accommodate a 8 [place] APDL catheter, which was left coiled within the collection. Completion images reveal no hemorrhage. Patient tolerated the procedure well and was discharged from the department in good condition. Approximately 10 cc of fluid mL of fluid sent for cultures. Conscious sedation provided by a registered nurse who monitored the patient's vital signs throughout and after the procedure. MEDICATIONS: Fentanyl 100 mcg IV and Versed 2 mg IV IMPRESSION: Successful CT guided drainage of left infrasplenic collection.
[2025-08-10] MEDS: MULTITRACE-4 ADULT 10ML VIAL 3 ML, M.V.I. IV [ADULT] 10 ML in CLINIMIX-E4.25%AA/D5+LYT2... IV ONE (09:54)
--- NOTE | 2025-08-10 11:05 | PN ---
[facility] PROGRESS NOTE Date of Service: Aug 10, 2025 Time of Service: 8:15 SUBJECTIVE: Ms. Gray is a 55-year-old female that was seen and examined today on 07/20/2025. Patient reports that she came to the emergency department with a chief complaint of abdominal pain. Onset was 07/09/2025. Location is all four quadrants. Duration is constant. Character is described as pressure and " like I have a lot of gas trapped. " there was no alleviating factors. There was no aggravating factors. Patient reports associated abdominal swelling. 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 After the discharge she was taking pain medications and her condition started worsening after few days. She is in constant follow up with Dr Gann. Today in the emergency department WBCs 21.2, left shift neutrophils 85.5%, BUN 26, creatinine 3.1, GFR 17, lactic acid 8.0, no urinalysis has been collected or sent to lab, CT of abdomen and pelvis showed of free air in the abdomen which could be a suspected bowel perforation versus postsurgical changes, moderate ascites, fissure post surgical changes. Chest x-ray shows right pleural effusion. Additionally patient had a heart rate of 125, respirations 26, together with leukocytosis and lactic acidosis patient met clinical sepsis criteria additionally patient's blood pressure dropped to 85/50 mmHg requiring vasopressor support therefore meeting criteria for septic shock. Patient will be admitted to the intensive care unit. Emergency room physician spoke with patient's surgeon, Dr. Gann who requested patient be admitted under hospitalist service and she will follow this case along. 07/21/25 Patient was evaluated at the bedside. She was accompanied by her daughter. She is oriented to the time, place and person. She complained of abdominal pain in all the quadrants. She hasn't had bowel movement since Saturday and also is unable to pass flatus at this time. She has guarding, rigidity and tenderness all over the abdomen, showing the signs of peritonitis. She was seen by Dr Gann this morning and is planned to be taken to OR this afternoon. Dueñas catheter is in place, as she wasn't able to pass the urine. There is no fever, chills and any other signs of infection. 07/22/25 Patient was evaluated at the bedside. She was accompanied by her daughter. She is oriented to the time, place and person. She underwent Diagnostic laparoscopy, abdominal washout, drain placement and diverting loop ileostomy creation, The procedure revealed Bilious peritonitis, 2 mm perforation of the colonic anastomosis. She is hemodynamically stable with Blood pressure of 110/73 and HR of 83. Currently she complains of abdominal pain which is getting better than yesterday, its 3-4/10 intensity. There is no rigidity. She is anxious about the outcomes and had discussion regarding her current clinical status and lab parameters. There is no fever, chills and any other signs of infection. 07/23/25 Patient was evaluated at the bedside. She was accompanied by her daughter. She is oriented to the time, place and person. She status post diagnostic laparoscopy, abdominal washout, drain placement and diverting loop ileostomy creation. Currently she complains of abdominal pain which is 5/10 intensity. She also complaints of mild lower back pain There is no fever, chills and any other signs of infection. She has CHRIS drain in-situ with clear fluid along with colostomy bag. She is currently tolerating clear liquid diet. 07/24/2025 Patient is seen and examined at the bedside. Vitals blood pressure ranging in 100s/50s, pulse rate 50s, SpO2 greater than 95% on room air. She mentions about experiencing pressure-like discomfort on the right side of the abdomen and pain when she tries to eat. No acute events last night. She denies fever, chills, nausea, vomiting, chest pain. CHRIS output approximately 100cc/hr, serosanguineous fluid. Ileostomy bag in place. She is tolerating clear liquid diet without any nausea/vomiting. Labs hemoglobin 9.8, BUN 38, creatinine improved from 1.6-1.1. 07/25/2025 Patient is seen and examined at the bedside. She complains of abdominal pain which is 7/10 in intensity. No acute events last night. She denies fever, chills, nausea, vomiting, chest pain. CHRIS output approximately 100cc/hr, serosanguineous fluid. Ileostomy bag in place. The patient has been started on spironolactone 25mg BID and Lasix 20 mg once daily. There is high output from CHRIS but it is clear serous, most likely related to her ascites from her history of liver cirrhosis. She is tolerating clear liquid diet without any nausea/vomiting. 07/26/2025 Patient is seen and examined at the bedside. She complains of abdominal pain which remains constant. No acute events last night. She denies fever, chills, nausea, vomiting, chest pain. Patient is status post with a CHRIS drain. The drain has been collecting the serosanguineous fluid secondary to ascites. She has been tolerating liquid diet and her diet has been advanced to soft diet. She still has bloating for which probiotics and fibers has been recommended. Hemoglobin has gradually trended down to 9.2 and was given IV Venofer. Patient to get up and ambulate and work with physical therapy. 07/27/2025 Patient is seen and examined at the bedside. She complains of abdominal pain which is 6/10 in intensity. No acute events last night. She denies fever, chills, nausea, vomiting, chest pain. Patient is unable to tolerate the soft diet, hence she is currently receiving the liquid diets. The CHRIS drain output is still high and there was small amount of drainage observed in the right ileostomy. 07/28/2025 Patient is seen and examined at the bedside. She complains of abdominal pain which is 9/10 in intensity. No acute events last night. She denies fever, chills, nausea, vomiting, chest pain. Patient reported pain after eating but no nausea or vomiting. WBC is gradually trending up from 8.3-7.3-11.1-11.8. She had lidocaine patch placed this morning. She was started on simethicone 80 mg yesterday. Pertinent she is currently receiving Dilaudid 0.5 mg. Abdominal ultrasound has been ordered for further assessment. 07/29/2025 Patient is seen and examined at the bedside. She continues to complain of severe abdominal pain, rated 9/10 in intensity, unchanged from prior. She is currently receiving Dilaudid 0.5 mg for pain. She reports discomfort related to Dueñas catheterization. She denies fever, chest pain, nausea or vomiting at this time. No acute events were reported overnight. Blood pressure noted today is noted to be 98/54 mm Hg which is slightly low. Per surgery team, stoma is likely to be removed today. Hemoglobin has trended down from 9.7 g/dl to 9.0 g/dl. 07/30/2025 Patient is seen and examined at the bedside. She continues to complain of severe abdominal pain. Her abdominal distention has slightly improved. Dueñas's catheter was removed due to persistent discomfort. We will continue with scheduled removal of the ascites fluid and from CHRIS bulb. Ultrasound of abdomen was concerning for cholelithiasis with biliary sludge and gallbladder distention. HIDA scan was performed today. If consistent with cholecystitis patient will need cholecystostomy tube placement. 07/31/2025 Patient is seen and examined at the bedside. She was accompanied by her daughter. She continues to complain of severe abdominal pain. She is currently on Dilaudid 0.5mg Q4H PRN, which relieves the symptoms for 2-3 hours, after that she develops same level of pain and discomfort again. Currently awaiting the HIDA scan results. Her sodium level is 133 and albumin level is trending downwards from 2.3 to 2.1. Her Iron panel results showed: Iron 20L, TIBC 147L and %sat 16.3L. For her continuos pain she is started on Fentanyl 25mcg. CHRIS drain culture has beens sent. Based on the results of HIDA scan, CT chest will be planned. 08/01/2025: Patient is seen and examined this morning at bedside. She was accompanied by her daughter. The patient complains of severe abdominal pain. She is currently being managed with [place], and Dilaudid for breakthrough pain. HIDA scan results are back, and show acute cholecystitis. Surgery has been made aware of the results. IR has been consulted for cholecystostomy tube placement. The patient will be started on PPN, as recommended by general surgery. The patient follows with Dr. Sol outpatient for her liver cirrhosis. The patients daughter would like her communicable disease specialist Dr. Sol to be involved in the patients care, and be updated with her status. 08/02/2025: Patient is seen and evaluated in the room 432. She was accompanied by her daughter. She complains of severe abdominal pain. She also complained of bleeding through her vagina, pink tinged urine. Her vitals are in the normal range. Her labs are in the normal range except for Hb is 8.6, Na is 135, K is 5.2, BUN is 4, Glucose is 150, CRP is 103.90. She went for placement of cholecystectomy tube by IR. We did a pelvic exam and ordered a vaginal estrogen cream and urinalysis. Also for her hyperkalemia we checked the potassium again and its 4.1. So we will repeat the labs tomorrow. We ordered a dose of albumin for her. 08/03/2025: Patient is seen and evaluated in the room 432. She has mild abdominal pain today. Her pain improved after the placement for cholecystotomy tube. Her vitals are in the normal range. Her labs are normal except for hemoglobin 8.2, glucose 156, CRP 89.8. Her aerobic and anaerobic culture of drain showed no growth. Gastroenterology saw the patient and they recommended 25 grams of 25% IV albumin q12H for 3 days. Her bleeding through the vagina decreased. The drainage through the left abdomen is 100ml, right abdomen is 20ml, left anterior abdomen 5ml. 08/04/2025: Patient is seen and evaluated in the room 432. She has abdominal pain today. Her vitals are in the normal range. Her labs are normal except for Hb is 8, CRP is 72.10, glucose is 130. Aerobic and anaerobic drain culture showed no growth. She is not able to tolerate her food. The drainage through the left abdomen is 100ml, right abdomen is 20ml, left anterior abdomen 5ml. Gastroenterology is planning to do EGD tomorrow. Surgery wanted to do a CT abdomen and pelvis with IV contrast. CT scan showed perisplenic and infrasplenic fluid collection measuring 6.0 x 6.1 x 8.9 cm, splenomegaly, with spleen measuring 15.2 cm, cholecystostomy tube in situ with decompressed gallbladder, abdominal drain in situ with tip in the pelvis. We ordered T.bilirubin and we will monitor the output from colostomy tube. We are also planning to add metoclopramide. 08/05/2025: Patient is seen and evaluated in the room 432. She has abdominal pain today. Her abdomen is tender to touch and warm. Her vital signs are in the normal range except for BP is 117/45. Her labs are normal except for Hb is 8.2, sodium is 135, creatinine is 0.3, CRP is 60.9 The drain output from left abdomen is 40ml, left anterior abdomen 0ml, right abdomen 0ml. Her saturation is 100% on 10L of O2. Her labs are in the normal range except for Hb is 8.2, HCT is 25.9, sodium is 135, glucose is 107, CRP is 60.90. She underwent endoscopy today and they did biopsy from 3 sites. GI said that they will consult radiology to check whether CHRIS drain and cholecystostomy tube are in place. General surgery will consult IR to evaluate perisplenic fluid collection for potential aspiration. 08/06/2025: Patient is seen and evaluated in the room 432. She has abdominal pain today. Her abdomen is tender to touch and warm. Her vital signs are in the normal range except for 97/63. Her labs are in the normal range except for Hb is 8.1, sodium is 135, blood glucose is 151, CRP 53.60. We are waiting for IR consult for evaluation and for potential aspiration of perisplenic fluid. The drain output from right abdomen is 20ml. 08/07/2025: Patient is seen and evaluated in the room 432. She has abdominal pain today. Her abdomen is tender to touch and warm. Her vital signs are in the normal range except for blood pressure which is 102/60. Her labs are in the normal range except for Hb is 8.5, WBC is 4.4, RDW is 17.3, sodium is 134, glucose is 147. We are waiting for IR consult for evaluation and for potential aspiration of perisplenic fluid. The drain output from right abdomen is 20ml. The PLY CUTTER told me that she eats her food after taking her pain medications. Nurse is planning to start full liquid diet for lunch. 08/08/2025: She was evaluated at the bedside this morning. She is AAO x3. she complained of epigastric pain which gets worse with food . Moderate tenderness was appreciated on the epigastric region. Her blood pressure is 99/46, pulse 80. Remarkable lab is for WBC of 4.8, hemoglobin 9, CRP 43.90. She is scheduled with IR for perisplenic fluid aspiration and checking the position of cholecystostomy tube. She is on full liquid diet. She is on Zosyn, fluconazole. Surgery, GI, ID on the board. Rest of the plan as discussed below. 08/09/2025: Patient went to bottle label inspector for PROCEDURE. As per nurse, her cholecystostomy tube was already correctly positioned but had some stones so tube was flushed. She complained of epigastric and pelvic pain. For pain control, fentanyl patch has been ordered. She is pending perisplenic fluid aspiration by IR. Her blood pressure is 98/58, pulse 90. She is currently NPO. She is on Zosyn, fluconazole. Surgery, GI, ID on the board. Rest of the plan as discussed below. 08/10/2025: Patient was seen and examined at bedside. She underwent CT GUIDED PERISPLENIC PIGTAIL DRAINAGE CATHETER PLACEMENT with Aspiration of perisplenic fluid. There has been 25 ml sanguinous drainage so far in the catheter. Her cholecystostomy tube has had 30 mL drainage in the past 24 hours. She is currently on clear liquid diet tolerating it well. She continues to complain pain in her abdomen without any peritoneal signs. She is maintained on fentanyl patch. REVIEW OF SYSTEMS CONSTITUTIONAL: No fever, chills, or night sweats. NEUROLOGICAL: Denies headache, sensory and motor deficit. CARDIOVASCULAR: Denies any exertional angina, dyspnea on exertion, palpitations. PULMONARY: Denies any shortness of breath, cough, phlegm/sputum, hemoptysis, pleuritic chest pain. GASTROINTESTINAL: Patient complains of diffuse abdominal pain. She also has bloating. Denies nausea, vomiting. GENITOURINARY: Denies frequency, urgency, nocturia, hematuria or incontinence. PHYSICAL EXAM GENERAL APPEARANCE: The patient is alert, awake and oriented and bedbound. NEUROLOGICAL: No sensory and motor deficits. CHEST: Normal chest expansion. LUNGS: Normal Vesicular breath sound. Absence of any rales, rhonchi or any wheezing. CARDIOVASCULAR: Regular. S1 and S2 normal. No appreciable rubs, murmurs or gallops. ABDOMEN: Abdomen is soft and slightly tender. CHRIS drain is placed. Ileostomy creation. Cholecystostomy tube is placed. Absence of guarding, rigidity and rebound tenderness. GENITOURINARY: No suprapubic tenderness. No costovertebral angle tenderness. Vital Signs (last 8hr) Date Time Temp Pulse Resp B/P (MAP) Pulse Ox O2 Delivery O2 Flow Rate FiO2 08/10/25 03:45 98.2 88 18 102/64 96 Room Air 21 LABS: Laboratory: Test 08/10/25 05:10 08/10/25 05:03 08/10/25 02:15 08/09/25 07:42 Range/Units Whole Blood Glucose 157 H 70-110 MG/DL White Blood Count 5.6 4.8-10.8 K/uL Red Blood Count 2.98 L 4.00-5.50 MIL/uL Hemoglobin 8.8 L 12.0-16.0 g/dL Hematocrit 27.3 L 36-48 % Mean Corpuscular Volume 91.6 79-99 fL Mean Corpuscular Hemoglobin 29.5 27.0-33.0 pg Mean Corpuscular Hemoglobin Concent 32.2 32.0-36.0 g/dL Red Cell Distribution Width 17.5 H 11.0-15.5 % Platelet Count 170 130-400 K/uL Mean Platelet Volume 9.9 7.5-10.5 fL Nucleated Red Blood Cells 0.0 0.0-0.19 % Sodium Level 134 L 136-145 mmol/L Potassium Level 4.3 3.5-5.1 mmol/L Chloride Level 103 101-111 mmol/L Carbon Dioxide Level 21 21-32 mmol/L Blood Urea Nitrogen 16 7-18 mg/dL Creatinine 0.5 0.5-1.0 mg/dL Glomerular Filtration Rate Calc 109 >90 mL/min Random Glucose 156 H 70-105 mg/dL Total Calcium 8.8 8.5-10.1 mg/dL Phosphorus Level 2.9 2.5-4.9 mg/dL Magnesium Level 2.10 1.80-2.40 mg/dL Total Bilirubin 0.5 0.2-1.0 mg/dL Aspartate Amino Transf (AST/SGOT) 32 10-37 U/L Alanine Aminotransferase (ALT/SGPT) 15 12-78 U/L Alkaline Phosphatase 120 50-136 U/L Total Protein 6.9 6.0-8.3 g/dL Albumin 2.5 L 3.5-5.0 g/dL Urine Color LIGHT-YELLOW YELLOW Urine Appearance CLEAR CLEAR Urine pH 6.0 5.0-8.0 Urine Specific [place] 1.018 1.001-1.031 Urine Protein NEGATIVE NEGATIVE mg/dL Urine Glucose (UA) NEGATIVE NEGATIVE mg/dL Urine Ketones NEGATIVE NEGATIVE mg/dL Urine Occult Blood NEGATIVE NEGATIVE Urine Nitrate NEGATIVE NEGATIVE Urine Bilirubin NEGATIVE NEGATIVE mg/dL Urine Urobilinogen 0.2 0.2-1.0 mg/dL Urine Leukocyte Esterase NEGATIVE NEGATIVE Regino/uL Prothrombin Time 13.8 H 9.6-11.6 SEC Prothromb Time International Ratio 1.34 H 0.85-1.15 Activated Partial Thromboplast Time 32.9 26.3-35.5 SEC Test 08/09/25 03:33 Range/Units Immature Granulocyte % (Auto) 1.6 H 0-1 % Neutrophils (%) (Auto) 64.0 40.0-77.0 % Lymphocytes (%) (Auto) 14.4 L 21.0-51.0 % Monocytes (%) (Auto) 13.5 H 3.0-13.0 % Eosinophils (%) (Auto) 5.8 0.0-8.0 % Basophils (%) (Auto) 0.7 0.0-5.0 % Neutrophils # (Auto) 2.8 1.8-7.7 K/uL Lymphocytes # (Auto) 0.6 L 1.0-4.8 K/uL Monocytes # (Auto) 0.6 0.1-1.0 K/uL Eosinophils # (Auto) 0.25 0.00-0.70 K/uL Basophils # (Auto) 0.03 0.00-0.20 K/uL Absolute Immature Granulocyte (auto 0.07 0-1 K/uL Current Medications Medications (Trade) Dose Ordered Sig/Gregory Route PRN Reason Start Time Stop Time Status Last Admin Dose Admin Acetaminophen (TYLenol 500MG TAB) 500 mg Q6H6 PRN PO MILD PAIN (1-3) 07/27/25 16:30 08/07/25 12:15 DC Acetaminophen (TYLenol 500MG TAB) 500 mg Q6H6 PRN PO MILD PAIN (1-3) 08/07/25 10:00 08/07/25 10:03 DC Acetaminophen (TYLenol 650MG SUPPOSITORY) 650 mg Q6H PRN RC MILD PAIN (1-3) 07/21/25 00:00 07/27/25 16:22 DC Acetaminophen/ Hydrocodone Bitart (NORco 5/325MG) 1 tab Q4H PRN PO MODERATE PAIN (4-6) 07/31/25 16:30 08/05/25 16:29 DC 08/05/25 14:57 1 TAB Acetaminophen/ Hydrocodone Bitart (NORco 5/325MG) 1 tab Q4H PRN PO MODERATE PAIN (4-6) 08/07/25 12:30 08/12/25 12:29 08/10/25 09:33 1 TAB Albumin Human 50 ml @ 100 mls/hr Q12H IV 08/02/25 21:30 08/05/25 09:59 DC 08/05/25 10:12 100 MLS/HR Albumin Human 50 ml @ 0 mls/hr Q12H IV 08/02/25 18:30 08/02/25 20:04 DC Albumin Human 100 ml @ 0 mls/hr ONCE IV 07/25/25 12:00 07/26/25 11:59 DC 07/25/25 13:43 100 MLS/HR Clotrimazole (Lotrimin) 1 GM BID TP 07/29/25 21:00 08/28/25 20:59 08/10/25 09:54 1 GM Cyclobenzaprine HCl (Cyclobenzaprine HCl) 5 mg TID PO 07/25/25 14:00 07/26/25 14:00 DC 07/26/25 14:19 5 MG Fentanyl (DURAgesic 12 MCG/HR PATCH) 12 mcg Q72H TD 08/09/25 13:00 08/09/25 15:19 DC Fentanyl (DURAgesic 12 MCG/HR PATCH) 12 mcg Q72H TD 08/09/25 15:30 08/14/25 15:29 08/09/25 15:38 12 MCG Fentanyl (DURAgesic 25 MCG/HR PATCH) 25 mcg Q72H TD 07/31/25 14:30 07/31/25 14:44 DC Fluconazole/ Sodium Chloride (DiFLUCan 200 MG/ NS 100 ML) 200 mg Q24H IVPB 07/21/25 21:00 08/20/25 20:59 08/09/25 20:11 200 MG Furosemide (LASix 20MG TAB) 20 mg DAILY PO 07/25/25 11:00 08/02/25 11:53 DC 08/02/25 09:42 20 MG Gabapentin (NEURontin 100 mg CAP) 100 mg TID PO 07/29/25 14:00 08/02/25 09:21 DC 08/01/25 20:14 100 MG Hydromorphone HCl (DiLAUDid 0.5MG INJ) 0.5 mg Q4H PRN IVP SEVERE PAIN (7-10) 07/24/25 10:00 07/29/25 09:59 DC 07/29/25 08:22 0.5 MG Hydromorphone HCl (DiLAUDid 0.5MG INJ) 0.5 mg Q4H PRN IVP SEVERE PAIN (7-10) 07/29/25 13:30 08/03/25 13:29 DC 08/03/25 13:09 0.5 MG Hydromorphone HCl (DiLAUDid 0.5MG INJ) 0.5 mg Q4H PRN IVP SEVERE PAIN (7-10) 08/03/25 18:00 08/07/25 10:03 DC 08/07/25 05:09 0.5 MG Hydromorphone HCl (DiLAUDid 0.5MG INJ) 0.5 mg Q4H PRN IVP SEVERE PAIN (7-10) 08/07/25 10:00 08/12/25 09:59 08/10/25 04:13 0.5 MG Insulin Human Regular (humuLIN R 100 UNIT/ML 3ML) INSULIN SLIDING SCAL... ACHS SQ 07/21/25 07:30 08/20/25 07:29 07/22/25 20:40 3 UNIT Lactated Ringer's 1,000 ml @ 75 mls/hr [id number] IV 07/21/25 00:00 07/21/25 13:17 DC 07/21/25 02:57 75 MLS/HR Lactated Ringer's 1,000 ml @ 75 mls/hr [id number] IV 07/21/25 13:30 07/24/25 11:09 DC 07/24/25 09:27 75 MLS/HR Lactobacillus Rhamnosus ([facility]) 1 each DAILY20 PO 07/26/25 20:00 08/25/25 19:59 08/09/25 20:11 1 EACH Lidocaine (Lidoderm Patch 5%) 1 patch DAILY TP 07/28/25 09:00 08/27/25 08:59 08/10/25 09:34 1 PATCH Lidocaine HCl/Al Hydroxide/Mg Hydroxide/ Dicyclomine HCl 20ML OR AD ONCE PO 08/06/25 16:30 08/07/25 16:29 DC 08/06/25 16:45 20 ML Magnesium Sulfate 50 ml @ 0 mls/hr PROTOCOL PRN IV MAGNESIUM PROTOCOL 07/21/25 07:00 08/20/25 06:59 08/01/25 06:05 25 MLS/HR Metoclopramide HCl (regLAN 10MG IV) 5 mg BID IVP 08/04/25 21:00 09/03/25 20:59 08/10/25 09:33 5 MG Metronidazole/ Sodium Chloride (flaGYL) 500 mg Q8H IV 07/21/25 14:00 07/21/25 13:40 DC Morphine Sulfate (morPHINE 2MG SYG) 2 mg Q4H PRN IVP SEVERE PAIN (7-10) 07/21/25 00:30 07/21/25 13:18 DC 07/21/25 04:46 2 MG Morphine Sulfate (morPHINE 4MG SYG) 4 mg Q3H PRN IV MODERATE PAIN (4-6) 07/21/25 13:30 07/26/25 16:29 DC 07/26/25 10:51 4 MG Norepinephrine 250 ml @ 0 mls/hr PROTOCOL IV 07/20/25 23:30 08/03/25 08:27 DC 07/21/25 10:56 18.45 MLS/HR Ondansetron HCl (zoFRAN 4MG INJ) 4 mg Q4H PRN IVP NAUSEA 07/21/25 13:30 08/20/25 13:29 Ondansetron HCl (zoFRAN 4MG INJ) 4 mg Q6H PRN IV NAUSEA/VOMITING 07/21/25 00:00 07/21/25 13:18 DC Pantoprazole Sodium (PROTonix 40MG INJ) 40 mg BID IV 07/26/25 21:00 08/20/25 08:59 08/10/25 09:34 40 MG Pantoprazole Sodium (PROTonix 40MG INJ) 40 mg BID IVP 08/05/25 21:00 08/06/25 08:39 DC 08/05/25 20:25 40 MG Pantoprazole Sodium (PROTonix 40MG INJ) 40 mg DAILY IV 07/21/25 09:00 07/26/25 09:31 DC 07/26/25 08:55 40 MG Pharmacy Profile Note (Pharmacy Communication) 1 each ONCE MISC 07/21/25 15:30 07/21/25 15:16 DC Pharmacy Profile Note (Pharmacy Communication) 1 each ONCE MISC 08/06/25 16:00 08/07/25 07:07 DC Piperacillin Sod/ Tazobactam Sod 50 ml @ 200 mls/hr ONCE STAT IVPB 07/20/25 19:15 07/20/25 19:29 DC 07/20/25 20:32 200 MLS/HR Piperacillin Sod/ Tazobactam Sod (Zosyn 3.375gm+NS 50ml) 3.375 gm Q12H IV 07/21/25 00:00 07/31/25 00:00 DC 07/30/25 23:55 3.375 GM Piperacillin Sod/ Tazobactam Sod (Zosyn 3.375gm+NS 50ml) 3.375 gm Q8H IVPB 07/31/25 11:30 08/10/25 11:29 08/10/25 04:05 3.375 GM Potassium Chloride 100 ml @ 100 mls/hr AD PRN IV POTASSIUM PROTOCOL 07/24/25 08:30 08/23/25 08:29 07/30/25 06:23 100 MLS/HR Potassium Chloride (K-Dur/Klor-Con 20meq) 20 meq AD PRN PO POTASSIUM PROTOCOL 07/24/25 08:30 08/23/25 08:29 07/27/25 20:33 20 MEQ Potassium Chloride (KCl 10% Elixir 20meq/15ml) 20 meq AD PRN PO POTASSIUM PROTOCOL 07/24/25 08:30 08/23/25 08:29 07/31/25 08:15 20 MEQ Psyllium Hydrophilic Mucilloid (Metamucil) 1 tbs BID PO 07/26/25 21:00 08/25/25 20:59 08/10/25 09:33 1 TBS Simethicone (Mylicon) 80 mg Q6H6 PO 07/27/25 12:00 08/26/25 11:59 08/10/25 05:30 80 MG Sodium Bicarbonate 150 meq/Sodium Chloride 1,150 ml @ 0 mls/hr Q0M IVP 07/21/25 14:00 07/26/25 09:31 DC Sodium Chloride (NS 50ml) 50 ml AD IV 07/31/25 11:30 07/31/25 11:12 DC Sodium Chloride (Normal Saline Flush) 10 ml Q8H IJ 08/09/25 11:00 09/08/25 10:59 Spironolactone (Aldactone 25mg) 25 mg BID PO 07/25/25 21:00 07/26/25 09:01 DC 07/26/25 08:56 25 MG Sucralfate (Carafate) 1 gm ACHS PO 07/29/25 21:00 08/28/25 20:59 08/10/25 05:29 1 GM Thiamine HCl (Vitamin B-1) 100 mg DAILY IVP 07/22/25 21:00 08/21/25 20:59 08/10/25 09:33 100 MG Thiamine HCl 100 mg/Sodium Chloride 50 ml @ 100 mls/hr Q24H IM 07/21/25 15:30 07/21/25 16:25 DC Vancomycin HCl (Vancomycin 1g/ 250ml Kit) 1 gm ONCE STAT IV 07/20/25 21:23 07/20/25 21:26 DC 07/20/25 22:06 1 GM Vasopressin 20 units/Sodium Chloride 100 ml @ 0 mls/hr PROTOCOL IV 07/21/25 00:30 08/03/25 08:27 DC 07/21/25 00:10 9 MLS/HR DIAGNOSTICS / RADIOLOGY: [ ] ASSESSMENT: Suspected Bowel Perforation POA Perisplenic and infrasplenic fluid collection with splenomegaly Hyponatremia Bacterial peritonitis Cholelithiasis Small Bowel Obstruction, Suspected Anastomotic Leak Bilious peritonitis s/p Diagnostic laparoscopy, abdominal washout, drain placement and diverting loop ileostomy creation Atrophic vaginitis hyperkalemia Iron Deficiency anemia Diabetes Mellitus Type 2 POA Acute Kidney Injury POA Septic Shock POA Cirrhosis of liver POA Esophageal Varices Recent Robotic takedown of splenic flexure mobilization, 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 has been started by the Surgery team. -Probiotics and Fibers have been added for bloating. -Protonix IV increased to twice daily. - Patient has been started on [place] by general surgery for abdominal pain, and is advised to take Diluadid only for breakthrough pain. - Patient was started on fentanyl patch today for pain control. - HIDA scan positive for acute cholecystitis. Surgery has been made aware. - IR did a Fluoroscopy and ultrasound-guided placement of cholecystotomy tube and cholecystogram on 08/02/2025. -Dr. Sol saw the patient and he recommended 25g of 25% albumin for 3 days. -Gastroenterology is planning to do EGD and they did biopsy from 3 sites. GI said that they will consult radiology to check whether CHRIS drain and cholecystostomy tube are in place. -Surgery wanted to do a CT abdomen and pelvis with IV contrast. CT scan showed perisplenic and infrasplenic fluid collection measuring 6.0 x 6.1 x 8.9 cm, splenomegaly, with spleen measuring 15.2 cm, cholecystostomy tube in situ with decompressed gallbladder, abdominal drain in situ with tip in the pelvis. -GI said that they will consult radiology to check whether CHRIS drain and cholecystostomy tube are in place. -She was assessed for cholecystostomy tube placement in the bottle label inspector. It showed some stones and the tube was flushed. She is pending perisplenic fluid aspiration by IR today. -We ordered T.bilirubin and we will monitor the output from colostomy tube. -We are also planning to add metoclopramide. Perisplenic and infrasplenic fluid collection with splenomegaly * CT scan showed perisplenic and infrasplenic fluid collection measuring 6.0 x 6.1 x 8.9 cm, splenomegaly, with spleen measuring 15.2 cm * IR to drain the perisplenic and intra splenic fluid today. Hyponatremia * Today her sodium level is 135. * Will repeat her labs tomorrow. Bacterial Peritonitis * Post Surgical patient with Bacterial peritonitis positive for ESBL * Culture and sensitivity shows susceptibility to Zosyn, Gentamicin and Meropenem. * Likely secondary to post-operative intraabdominal infection with risk of ongoing contamination. * Currently patient is on Zosyn (Day 20) * For her continuos pain she is started on Fentanyl 25mcg. CHRIS drain culture has beens sent. Cholelithiasis * Patient complained of upper abdominal pain * Ultrasound abdomen showed: Cirrhotic-appearing liver * Cholelithiasis and biliary sludge with gallbladder distension and Small volume ascites. * Hida scan shows acute cholecystitis. * Per Surgery: IR to be consulted for cholecystostomy tube placement. * IR did a Fluoroscopy and ultrasound-guided placement of cholecystotomy tube and cholecystogram on 08/02/2025. * IR evaluated patient in the bottle label inspector for cholecystostomy tube placement. Patient was found to have normally positioned tube with some stones for which the tube was flushed.. Small Bowel Obstruction (Resolved) * Patient complaints of abdominal pain which is 9/10 on intensity * Abdominal Xray showed: Dilated small bowel loops are seen in mid abdomen * Perform Serial abdominal exams * Pain management(avoid excess opioids if ileus is suspected) * Evaluate drain, bowel status * Monitor for resolution vs progression of Ileus/obstruction. 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 - CT abdominal pelvis w/contrast done on 07/20/2025 showed Free air in the upper abdomen is seen, suggesting perforated bowel vs post surgical changes. No obstruction. -underwent Diagnostic laparoscopy, abdominal washout, drain placement and diverting loop ileostomy creation for biliary peritonitis Atrophic vaginitis * Her bleeding is resolved * We did a pelvic examination. * Ordered topical estrogen. * Urinalysis showed cloudy urine, protein 30, trace occult blood, RBC is 11 to 25, WBC is 26 to 50. hyperkalemia * Today his potassium is 4.4 * Will repeat her labs tomorrow. Iron Deficiency anemia * Hemoglobin today is 9.3. * Iron sucrose (venofer) has been ordered. * Anemia panel has been ordered. Results showed Iron 24L, %sat 16.3 and TIBC 147L. 07/30/25 * Recommend trending Hgb and transfuse as needed to goal Hgb >7. * Plan to initiate the patient on Venofer, her last dose of Venofer was 200 mg on 07/26/2025 * Iron level is 20L, % saturation 11.9, TIBC 167L, Ferritin 129. 9/ Septic Shock -resolved -Her WBC is 4.3 today. 08/08/2025 -Her WBC during the presentation was 21.2 -lactic acid is 1.5 on 07/31/2025 -blood and urine culture results are negative Acute Kidney Injury Resolved -Creatinine improved from 1.6-1.1-0.7-0.6-0.6-0.6-0.6-0.6-0.5-0.6-0.6-0.5-0.5-0.3-0.6-0.4-0.6 08/09/2025 -Initial FeNA is 0.1 %, probably secondary to dehydration and NSAIDs overuse. -initial Urine sodium is < 13 and urine creatinine is 132.17. -Avoid nephrotoxic agents, eg. NSAIDS. -Weight patient daily. -Monitor intake and output. -Ordered urinalysis Cirrhosis of liver -Patient has a past history of cirrhosis of liver. - Liver functions are within normal limits. AST 20, ALT 9 and ALP 67. - Avoid NSAIDs and high dose acetaminophen. -Maintain appropriate volume of the patient. -Patient has been started on Spironolactone 25 mg b.i.d. and Lasix 20 mg once daily. 07/25/25 -Albumin was given for the hypotension. -Patients family is requesting that Dr. Sol be involved in the patients care. Supportive measures -Maintain IV fluids, correct electrolytes -Serial abdominal exams -Reheater on avoidance of NSAIDS and other related triggers. -Monitor Vitals and perform morning labs regularly Continue GI prophylaxis with Pantop Continue DVT prophylaxis with SCDs, we will avoid heparin due to history of allergies to porcine, we will coordinate with surgery consult on initiation of other anticoagulants SONJA PERALTA MD Aug 10, 2025 11:05
--- NOTE | 2025-08-10 13:22 | PN ---
NEPHROLOGY PROGRESS NOTE Date/Time Patient Seen: Aug 10, 2025 SUBJECTIVE: This is a 55-year-old female with a past medical history of diabetes mellitus type 2, liver cirrhosis, esophageal varices. He presented to the emergency room with chief complain of abdominal pain. CT of the abdomen showed moderate small bowel enteritis with free air in the upper abdomen, suggesting perforated bowel versus post surgical changes. No obst ruction. S/p diagnostic laparoscopy, abdominal washout, drain placement and diverting loop ileostomy creation with CHRIS drain 10 [place] on 07/21 S/P cholecystotomy tube on 08/02 S/P Cholecystogram showed cholecystotomy tube in satisfactory position with multiple large gallstones seen in the gallbladder lumen on 08/09 S/P successful CT guided drainage of left infrasplenic collection on 08/09 She was noted to have elevated BUN/creatinine We are consulted for renal failure Renal function and electrolytes are stable. She was seen in the [facility] floor, in no acute distress No family at the bedside REVIEW OF SYSTEMS: GENERAL: Positive for nausea NEUROLOGIC: Negative for any blurry vision, blind spots, double vision, facial asymmetry, dysphagia, dysarthria, hemiparesis, hemisensory deficits, vertigo, ataxia. HEENT: Negative for any head trauma, neck trauma, neck stiffness, photophobia, phonophobia, sinusitis, rhinitis. CARDIAC: Negative for any chest pain, dyspnea on exertion, paroxysmal nocturnal dyspnea, peripheral edema. PULMONARY: Negative for any shortness of breath, wheezing, COPD, or TB exposure. GASTROINTESTINAL: Negative for any abdominal pain, nausea, vomiting, bright red blood per rectum, melena. GENITOURINARY: Negative for any dysuria, hematuria, incontinence. INTEGUMENTARY: Negative for any rashes, cuts, insect bites. RHEUMATOLOGIC: Negative for any joint pains, photosensitive rashes, history of vasculitis or kidney problems. HEMATOLOGIC: Negative for any abnormal bruising, frequent infections or bleeding. Vital Signs (last 8hr) Date Time Temp Pulse Resp B/P (MAP) Pulse Ox O2 Delivery O2 Flow Rate FiO2 08/10/25 12:00 97.3 73 18 98/61 93 Room Air 08/10/25 08:00 97.9 86 17 99/62 93 Room Air PHYSICAL EXAM: GENERAL: Alert and oriented x 3. No acute distress. Well-nourished. EYES: EOMI. Anicteric. HENT: Moist mucous membranes. No scleral icterus. No cervical lymphadenopathy. LUNGS: Clear to auscultation bilaterally. No accessory muscle use. CARDIOVASCULAR: Regular rate and rhythm. No murmur. No JVD. ABDOMEN: Soft, non-tender and non-distended. No palpable masses. EXTREMITIES: No edema. Non-tender SKIN: No rashes or lesions. Warm. NEUROLOGIC: No focal neurological deficits. CN II-XII grossly intact, but not individually tested. PSYCHIATRIC: Cooperative. Appropriate mood and affect. Current Medications Medications (Trade) Dose Ordered Sig/Gregory Route Start Time Stop Time Status Last Admin Dose Admin Albumin Human 100 ml @ 0 mls/hr ONCE IV 07/25/25 12:00 07/26/25 11:59 DC 07/25/25 13:43 100 MLS/HR Cyclobenzaprine HCl (Cyclobenzaprine HCl) 5 mg TID PO 07/25/25 14:00 07/26/25 14:00 DC 07/26/25 14:19 5 MG Fluconazole/ Sodium Chloride (DiFLUCan 200 MG/ NS 100 ML) 200 mg Q24H IVPB 07/21/25 21:00 08/20/25 20:59 07/25/25 20:47 200 MG Furosemide (LASix 20MG TAB) 20 mg DAILY PO 07/25/25 11:00 08/24/25 10:59 07/26/25 08:56 20 MG Insulin Human Regular (humuLIN R 100 UNIT/ML 3ML) INSULIN SLIDING SCAL... ACHS SQ 07/21/25 07:30 08/20/25 07:29 07/22/25 20:40 3 UNIT Lactated Ringer's 1,000 ml @ 75 mls/hr [id number] IV 07/21/25 00:00 07/21/25 13:17 DC 07/21/25 02:57 75 MLS/HR Lactated Ringer's 1,000 ml @ 75 mls/hr [id number] IV 07/21/25 13:30 07/24/25 11:09 DC 07/24/25 09:27 75 MLS/HR Lactobacillus Rhamnosus ([facility] [employer]) 1 each DAILY20 PO 07/26/25 20:00 08/25/25 19:59 Metronidazole/ Sodium Chloride (flaGYL) 500 mg Q8H IV 07/21/25 14:00 07/21/25 13:40 DC Norepinephrine 250 ml @ 0 mls/hr PROTOCOL IV 07/20/25 23:30 08/19/25 23:29 07/21/25 10:56 18.45 MLS/HR Pantoprazole Sodium (PROTonix 40MG INJ) 40 mg BID IV 07/26/25 21:00 08/20/25 08:59 Pantoprazole Sodium (PROTonix 40MG INJ) 40 mg DAILY IV 07/21/25 09:00 07/26/25 09:31 DC 07/26/25 08:55 40 MG Pharmacy Profile Note (Pharmacy Communication) 1 each ONCE MISC 07/21/25 15:30 07/21/25 15:16 DC Piperacillin Sod/ Tazobactam Sod 50 ml @ 200 mls/hr ONCE STAT IVPB 07/20/25 19:15 07/20/25 19:29 DC 07/20/25 20:32 200 MLS/HR Piperacillin Sod/ Tazobactam Sod (Zosyn 3.375gm+NS 50ml) 3.375 gm Q12H IV 07/21/25 00:00 07/31/25 00:00 07/26/25 12:10 3.375 GM Psyllium Hydrophilic Mucilloid (Metamucil) 1 tbs BID PO 07/26/25 21:00 08/25/25 20:59 Sodium Bicarbonate 150 meq/Sodium Chloride 1,150 ml @ 0 mls/hr Q0M IVP 07/21/25 14:00 07/26/25 09:31 DC Spironolactone (Aldactone 25mg) 25 mg BID PO 07/25/25 21:00 07/26/25 09:01 DC 07/26/25 08:56 25 MG Thiamine HCl (Vitamin B-1) 100 mg DAILY IVP 07/22/25 21:00 08/21/25 20:59 07/26/25 08:55 100 MG Thiamine HCl 100 mg/Sodium Chloride 50 ml @ 100 mls/hr Q24H IM 07/21/25 15:30 07/21/25 16:25 DC Vancomycin HCl (Vancomycin 1g/ 250ml Kit) 1 gm ONCE STAT IV 07/20/25 21:23 07/20/25 21:26 DC 07/20/25 22:06 1 GM Vasopressin 20 units/Sodium Chloride 100 ml @ 0 mls/hr PROTOCOL IV 07/21/25 00:30 08/20/25 00:29 07/21/25 00:10 9 MLS/HR LABORATORY: [ ] Hematology Labs: Test 08/10/25 05:03 08/09/25 03:33 Range/Units White Blood Count 5.6 4.8-10.8 K/uL Red Blood Count 2.98 L 4.00-5.50 MIL/uL Hemoglobin 8.8 L 12.0-16.0 g/dL Hematocrit 27.3 L 36-48 % Mean Corpuscular Volume 91.6 79-99 fL Mean Corpuscular Hemoglobin 29.5 27.0-33.0 pg Mean Corpuscular Hemoglobin Concent 32.2 32.0-36.0 g/dL Red Cell Distribution Width 17.5 H 11.0-15.5 % Platelet Count 170 130-400 K/uL Mean Platelet Volume 9.9 7.5-10.5 fL Nucleated Red Blood Cells 0.0 0.0-0.19 % Immature Granulocyte % (Auto) 1.6 H 0-1 % Neutrophils (%) (Auto) 64.0 40.0-77.0 % Lymphocytes (%) (Auto) 14.4 L 21.0-51.0 % Monocytes (%) (Auto) 13.5 H 3.0-13.0 % Eosinophils (%) (Auto) 5.8 0.0-8.0 % Basophils (%) (Auto) 0.7 0.0-5.0 % Neutrophils # (Auto) 2.8 1.8-7.7 K/uL Lymphocytes # (Auto) 0.6 L 1.0-4.8 K/uL Monocytes # (Auto) 0.6 0.1-1.0 K/uL Eosinophils # (Auto) 0.25 0.00-0.70 K/uL Basophils # (Auto) 0.03 0.00-0.20 K/uL Absolute Immature Granulocyte (auto 0.07 0-1 K/uL Chemistry Labs: Test 08/10/25 11:32 08/10/25 05:03 Range/Units Whole Blood Glucose 161 H 70-110 MG/DL Sodium Level 134 L 136-145 mmol/L Potassium Level 4.3 3.5-5.1 mmol/L Chloride Level 103 101-111 mmol/L Carbon Dioxide Level 21 21-32 mmol/L Blood Urea Nitrogen 16 7-18 mg/dL Creatinine 0.5 0.5-1.0 mg/dL Glomerular Filtration Rate Calc 109 >90 mL/min Random Glucose 156 H 70-105 mg/dL Total Calcium 8.8 8.5-10.1 mg/dL Phosphorus Level 2.9 2.5-4.9 mg/dL Magnesium Level 2.10 1.80-2.40 mg/dL Total Bilirubin 0.5 0.2-1.0 mg/dL Aspartate Amino Transf (AST/SGOT) 32 10-37 U/L Alanine Aminotransferase (ALT/SGPT) 15 12-78 U/L Alkaline Phosphatase 120 50-136 U/L Total Protein 6.9 6.0-8.3 g/dL Albumin 2.5 L 3.5-5.0 g/dL Coagulation Labs: Test 08/09/25 07:42 Range/Units Prothrombin Time 13.8 H 9.6-11.6 SEC Prothromb Time International Ratio 1.34 H 0.85-1.15 Activated Partial Thromboplast Time 32.9 26.3-35.5 [facility] / RADIOLOGY: [place] [address] IMAGING REPORT Signed PATIENT: DALLAS BUCHANAN MR#: [id number] : 1970 SEX: F AGE: 55 LOCATION: [facility] ORDER 1544 STATUS: ADM IN REPORT#: [id number] SERVICE 0800 REASON: Aspiration of perisplenic fluid noted on CT ORDERING PHYSICIAN: BENEDICTO OBRIEN Jr. PROCEDURE: GUID NDL - CT GUIDE NDL PLCMT IR CT GUIDE NDL PLCMT IR HISTORY: Aspiration of perisplenic fluid noted on CT infrasplenic fluid collection drainage . TECHNIQUE: Images from prior studies reviewed. Informed consent was obtained after explaining the procedure and potential complications to the patient. Time out performed. The patient was placed prone on the CT couch and images of the abdomen obtained. The left flank draped in sterile fashion. Local anesthesia was applied and under CT-fluoroscopy guidance, a 19-gauge needle introducer was advanced through the abdominal wall and into a left infrasplenic fluid collection in the left hemiabdomen. Then, over a wire the tract was dilated to accommodate a 8 [place] APDL catheter, which was left coiled within the collection. Completion images reveal no hemorrhage. Patient tolerated the procedure well and was discharged from the department in good condition. Approximately 10 cc of fluid mL of fluid sent for cultures. Conscious sedation provided by a registered nurse who monitored the patient's vital signs throughout and after the procedure. MEDICATIONS: Fentanyl 100 mcg IV and Versed 2 mg IV IMPRESSION: Successful CT guided drainage of left infrasplenic collection. DICTATED BY: GREER FIORE MD DATE: 08/10/25927 ELECTRONICALLY SIGNED BY: GREER FIORE MD DATE: 08/10/25937 PATIENT: DALLAS BUCHANAN MR#: [id number] : 1970 SEX: F AGE: 55 LOCATION: [facility] ORDER 36 STATUS: ADM IN REPORT#: [id number] SERVICE 35 REASON: epigastric pain. not tolerating meals. ORDERING PHYSICIAN: SUSAN JHAVERI MD PROCEDURE: ABD PEL W - CT ABDOMEN/PELVIS W/CONTRAST EXAM: CT Abdomen and Pelvis with IV contrast CLINICAL HISTORY: epigastric pain. not tolerating meals. TECHNIQUE: Axial computed tomography images of the abdomen and pelvis with intravenous contrast. CONTRAST: with intravenous contrast. COMPARISON: Compared with the previous CT dated 07/20 and USG dated 07/29 FINDINGS: LUNG BASES: Grossly stable atelectasis and scarring at the lung bases. LIVER: Unremarkable. GALLBLADDER AND BILE DUCTS: The gallbladder is decompressed with a cholecystostomy tube in situ. PANCREAS: Unremarkable. SPLEEN: The spleen is enlarged in size, measuring 15.2 cm. ADRENAL GLANDS: Unremarkable. KIDNEYS, URETERS, AND BLADDER: No hydronephrosis or nephrolithiasis. No ureteral calculi. The urinary bladder is unremarkable. STOMACH AND BOWEL: The ileostomy site appears unremarkable. Interval resolution of previously seen moderate small bowel enteritis. No obstruction. APPENDIX: No CT evidence for appendicitis. PERITONEUM: Near complete interval resolution of previously seen moderate ascites in the abdomen and pelvis. Collection in the perisplenic and infra-splenic region measuring 6.0 x 6.1 x 8.9 cm. Interval resolution of previously seen pneumoperitoneum. Diffuse mesenteric fat stranding, likely postoperative changes. LYMPH NODES: No lymphadenopathy. REPRODUCTIVE: Unremarkable as visualized. VASCULATURE: No aortic aneurysm. ABDOMINAL WALL AND SOFT TISSUES: Interval resolution of previously seen subcutaneous emphysema in the anterior abdominal wall and left lateral chest wall. Abdominal drain in situ with tip in the pelvis. BONES: No fracture or suspicious osseous abnormality. IMPRESSION: 1. Perisplenic and infrasplenic fluid collection measuring 6.0 x 6.1 x 8.9 cm. 2. Splenomegaly, with spleen measuring 15.2 cm. 3. Cholecystostomy tube in situ with decompressed gallbladder. 4. Abdominal drain in situ with tip in the pelvis. 5. No acute findings in the remainder of the abdomen and pelvis. /[place] DICTATED BY: ELDON MILLER Jr., MD DATE: 08/04/251636 ELECTRONICALLY SIGNED BY: ELDON MILLER Jr., MD DATE: 08/04/251636 PATIENT: DALLAS BUCHANAN MR#: [id number] : 1970 SEX: F AGE: 55 LOCATION: [facility] ORDER 1524 STATUS: ADM IN REPORT#: [id number] SERVICE 1523 REASON: cholecystitis ORDERING PHYSICIAN: BENEDICTO OBRIEN Jr. PROCEDURE: HIDA PHARM - NM HIDA/HEPATOBILI W/ PHARMACO EXAM: HIDA scan. INDICATION: Severe RUQ Pain to rule out cholecystitis. REFERENCE EXAMINATION: USG July 29, 2025. TECHNIQUE: Sequential images of the abdomen were obtained in the anterior projection after IV administration of 6.0 mCi of Tc99m Mebrofenin. FINDINGS: Tracer activity throughout the liver is homogeneous without focal defects. There is prompt excretion of the pharmaceutical into the bile ducts and into the small bowel, without evidence of obstruction. There is no visualization of the gallbladder at the conclusion of the examination. IMPRESSION: Scintigraphic findings are compatible with acute cholecystitis. /[place] DICTATED BY: ELDON MILLER Jr., MD DATE: 08/01/251010 ELECTRONICALLY SIGNED BY: ELDON MILLER Jr., MD DATE: 08/01/25 1011 PATIENT: DALLAS BUCHANAN MR#: [id number] : 1970 SEX: F AGE: 55 LOCATION: [facility] ORDER 10 STATUS: ADM IN REPORT#: [id number] SERVICE 09 REASON: ABD PAIN ORDERING PHYSICIAN: NIKKI MUNOZ NP PROCEDURE: ABD 1VW - ABD 1VW EXAM: CR Abdomen, 1 view. CLINICAL HISTORY: Pain. COMPARISON: None provided. FINDINGS: Dilated small bowel loops are seen in mid abdomen. There is a density in the pelvis which may represent a send drainage catheter. No free air is evident. No abnormal calcification. No aggressive appearing osseous lesion. IMPRESSION: Dilated small bowel loops are seen in mid abdomen. Density in the pelvis which may represent a send drainage catheter. /[place] DICTATED BY: TOBI LEAHY MD DATE: 07/29/25 103 ELECTRONICALLY SIGNED BY: TOBI LEAHY MD DATE: 07/29/25 103 PATIENT: DALLAS BUCHANNA MR#: [id number] : 1970 SEX: F AGE: 55 LOCATION: [facility] ORDER 18 STATUS: ADM IN REPORT#: [id number] SERVICE 15 REASON: Liver cirrhosis ORDERING PHYSICIAN: LISET DOUGLAS MD PROCEDURE: ABDOMEN - US ABDOMINAL COMPLETE EXAM: US Abdomen complete CLINICAL HISTORY: Liver cirrhosis TECHNIQUE: Real-time ultrasound of the abdomen (complete) with image documentation. COMPARISON: None provided. FINDINGS: LIVER: Liver measures 12.3 cm with a heterogeneous coarse echotexture. GALLBLADDER: Gallbladder contains stones and sludge. Gallbladder is distended. COMMON BILE DUCT: No dilation. PANCREAS: Pancreas not well-visualized due to overlying bowel gas KIDNEYS: Normal renal contours. No renal mass or calculus. No hydronephrosis. SPLEEN: Normal in size and echogenicity. No mass identified. AORTA: No aneurysm. IVC: Unremarkable as visualized. MISCELLANEOUS: Small amount of abdominal ascites. IMPRESSION: 1. Cirrhotic-appearing liver. 2. Cholelithiasis and biliary sludge with gallbladder distension. 3. Small volume ascites. /[place] DICTATED BY: CYNTHIA JULIAN MD DATE: 07/29/251055 ELECTRONICALLY SIGNED BY: CYNTHIA JULIAN MD DATE: 07/29/251055 PATIENT: DALLAS BUCHANAN MR#: [id number] : 1970 SEX: F AGE: 55 LOCATION: [facility] ORDER 1108 STATUS: ADM IN REPORT#: [id number] SERVICE 110 REASON: sob ORDERING PHYSICIAN: PREET BOSTON MD PROCEDURE: CXR1VW - CHEST 1VW CHEST 1VW REASON: sob COMPARISON: Study from 07/21/2025 is available. FINDINGS: Single view of the chest was obtained. Lungs are clear. Heart size is normal. There is no pulmonary vascular congestion. There is a right-sided PIC catheter with tip in superior vena cava. There is a nasogastric tube with the tip in the fundus of the stomach. Mediastinum and bony thorax appear unremarkable. IMPRESSION: 1. No acute cardiopulmonary process 2. The support lines are in satisfactory position.. DICTATED BY: GREER FIORE MD DATE: 07/22/25 135 ELECTRONICALLY SIGNED BY: GREER FIORE MD DATE: 07/22/25 135 PATIENT: DALLAS BUCHANAN MR#: [id number] : 1970 SEX: F AGE: 55 LOCATION: [facility] ORDER 0100 STATUS: ADM IN REPORT#: [id number] SERVICE REASON: PICC LINE ORDERING PHYSICIAN: HEATHER LEACH APRN PROCEDURE: CXR1VW - CHEST 1VW EXAM: CR Chest, single view. CLINICAL HISTORY: PICC line COMPARISON: Prior same day chest radiograph. FINDINGS: Right-sided PICC catheter with tip in the cavoatrial junction. Subsegmental atelectasis in the right lower lobe. No evidence of pleural effusion or pneumothorax. The cardiomediastinal silhouette is within normal limits. No acute osseous abnormality. IMPRESSION: Right-sided PICC catheter with tip in the cavoatrial junction. Subsegmental atelectasis in the right lower lobe. No evidence of pleural effusion or pneumothorax. Compared to the prior study, there is interval placement of the right-sided PICC line and interval resolution of the subsegmental atelectasis in the left lower lobe. /[place] DICTATED BY: ELDON MILLER Jr., MD DATE: 07/21/25816 ELECTRONICALLY SIGNED BY: ELDON MILLER Jr., MD DATE: 07/21/25816 PATIENT: DALLAS BUCHANAN MR#: [id number] : 1970 SEX: F AGE: 55 LOCATION: [facility] ORDER 14 STATUS: REG ER [facility] REPORT#: [id number] SERVICE 12 REASON: CHEST PAIN/COUGH ORDERING PHYSICIAN: ALHAJI SHINE NP PROCEDURE: CXR1VW - CHEST 1VW EXAM: XR Chest, 1 View. CLINICAL HISTORY: 55 year old female with chest pain and cough. COMPARISON: None provided. FINDINGS: LUNGS: The lungs demonstrate evidence of atelectasis. PLEURAL SPACES: A small right pleural effusion is present. HEART: The heart size is normal. BONES: No acute osseous abnormality. IMPRESSION: 1. Small right pleural effusion and right lung base atelectasis. /[place] DICTATED BY: EDWIGE LEDESMA MD DATE: 07/20/252046 ELECTRONICALLY SIGNED BY: EDWIGE LEDESMA MD DATE: 07/20/252046 PATIENT: DALLAS BUCHANAN MR#: [id number] : 1970 SEX: F AGE: 55 LOCATION: [facility] ORDER 14 STATUS: REG ER REPORT#: [id number] SERVICE 12 REASON: Abdominal Pain ORDERING PHYSICIAN: ALHAJI SHINE NP PROCEDURE: ABD PEL W - CT ABDOMEN/PELVIS W/CONTRAST ADDENDUM REPORT ADDENDUM: Results were shared by telephone at 23:23 pm on 07-20-2025 and acknowledged by Pt nurse Ms. SHIN BOYKIN. /[place] EXAM: CT Abdomen and Pelvis with Intravenous Contrast CLINICAL HISTORY: 55-year-old female with abdominal pain. TECHNIQUE: Axial computed tomography images of the abdomen and pelvis with intravenous contrast. Dose reduction technique was used including one or more of the following: automated exposure control, adjustment of mA and kV according to patient size, and/or iterative reconstruction. CONTRAST: Omnipaque 350, 75 mL COMPARISON: None provided. FINDINGS: LUNG BASES: Atelectasis and scarring at the lung bases. LIVER: Unremarkable. GALLBLADDER AND BILE DUCTS: Tiny gallstone seen. PANCREAS: Unremarkable. SPLEEN: Unremarkable. ADRENAL GLANDS: Unremarkable. KIDNEYS, URETERS, AND BLADDER: Dueñas catheter seen in the bladder lumen. No hydronephrosis or nephrolithiasis. No ureteral calculi. STOMACH AND BOWEL: Edema or loops of small bowel suggesting moderate small bowel enteritis. Free air in the upper abdomen is seen, suggesting perforated bowel. No obstruction. APPENDIX: No CT evidence for appendicitis. PERITONEUM: Moderate ascites in the abdomen and pelvis. No free air under the diaphragm. LYMPH NODES: No lymphadenopathy. REPRODUCTIVE: Unremarkable as visualized. VASCULATURE: No aortic aneurysm. ABDOMINAL WALL AND SOFT TISSUES: There is air in the subcutaneous soft tissue seen anteriorly, suggesting recent postsurgical changes; please correlate with surgical history. BONES: No fracture or suspicious osseous abnormality. IMPRESSION: 1. Moderate small bowel enteritis with free air in the upper abdomen, suggesting perforated bowel versus post surgical changes. No obstruction. 2. Moderate ascites in the abdomen and pelvis. 3. Air in the subcutaneous soft tissue anteriorly, suggesting recent postsurgical changes; please correlate with surgical history. /[place] DICTATED BY: EDWIGE LEDESMA MD DATE: 07/20/25 4192 ELECTRONICALLY SIGNED BY: DATE: EXAM: CT Abdomen and Pelvis with Intravenous Contrast CLINICAL HISTORY: 55-year-old female with abdominal pain. TECHNIQUE: Axial computed tomography images of the abdomen and pelvis with intravenous contrast. Dose reduction technique was used including one or more of the following: automated exposure control, adjustment of mA and kV according to patient size, and/or iterative reconstruction. CONTRAST: Omnipaque 350, 75 mL COMPARISON: None provided. FINDINGS: LUNG BASES: Atelectasis and scarring at the lung bases. LIVER: Unremarkable. GALLBLADDER AND BILE DUCTS: Tiny gallstone seen. PANCREAS: Unremarkable. SPLEEN: Unremarkable. ADRENAL GLANDS: Unremarkable. KIDNEYS, URETERS, AND BLADDER: Dueñas catheter seen in the bladder lumen. No hydronephrosis or nephrolithiasis. No ureteral calculi. STOMACH AND BOWEL: Edema or loops of small bowel suggesting moderate small bowel enteritis. Free air in the upper abdomen is seen, suggesting perforated bowel. No obstruction. APPENDIX: No CT evidence for appendicitis. PERITONEUM: Moderate ascites in the abdomen and pelvis. No free air under the diaphragm. LYMPH NODES: No lymphadenopathy. REPRODUCTIVE: Unremarkable as visualized. VASCULATURE: No aortic aneurysm. ABDOMINAL WALL AND SOFT TISSUES: There is air in the subcutaneous soft tissue seen anteriorly, suggesting recent postsurgical changes; please correlate with surgical history. BONES: No fracture or suspicious osseous abnormality. IMPRESSION: 1. Moderate small bowel enteritis with free air in the upper abdomen, suggesting perforated bowel versus post surgical changes. No obstruction. 2. Moderate ascites in the abdomen and pelvis. 3. Air in the subcutaneous soft tissue anteriorly, suggesting recent postsurgical changes; please correlate with surgical history. /[place] DICTATED BY: EDWIGE LEDESMA MD DATE: 07/20/252317 ELECTRONICALLY SIGNED BY: EDWIGE LEDESMA MD DATE: 07/20/252317 ASSESSMENT: Acute kidney injury Hyponatremia Bacterial peritonitis Perisplenic and infrasplenic fluid collection with splenomegaly Cholelithiasis 2 mm perforation of the colonic anastomosis Anastomosis leak Bilious peritonitis S/p Diagnostic laparoscopy, abdominal washout, drain placement and diverting loop ileostomy creation Atrophic vaginitis Anemia Diabetes Mellitus Type 2 Septic Shock Cirrhosis of liver Oesophageal Varices PLAN: Labs, diagnostic, radiologic exams reviewed and interpreted by myself and supervising physician. We have reviewed external records in detail Require close monitoring of renal function and electrolytes Order CBC, CMP, and electrolytes in am Continue with antibiotics as per ID BiPAP as necessary, for respiratory distress Monitor blood pressure adjust medication doses as needed Avoid hypotensive episodes May use Dilaudid 0.5 mg IV every 6 hours as needed for severe pain Monitor blood sugars Strict intake, output, and daily weight should be monitored Please renally adjust medications Avoid nephrotoxic and nonsteroidal drugs Avoid contrast if possible Will continue to monitor renal function, anemia, electrolytes Treatment plan discussed with patient Questions were answered We have discussed with the other team physicians in detail about the care plan We will continue to monitor the patient closely ATTESTATION BY PHYSICIAN I have seen and examined the patient. I reviewed the documentation, medical decision making, and treatment plan as noted by the mid-level provider above. I agree with the findings and plan of care. CIELO PORTILLO MD, [facility] Aug 10, 2025 13:22
--- NOTE | 2025-08-10 14:16 | PN ---
[facility] PROGRESS NOTE Date of Service: Aug 10, 2025 Time of Service: 08:50 SUBJECTIVE: Ms. Gray is a 55-year-old female that was seen and examined today on 07/20/2025. Patient reports that she came to the emergency department with a chief complaint of abdominal pain. Onset was 07/09/2025. Location is all four quadrants. Duration is constant. Character is described as pressure and " like I have a lot of gas trapped. " there was no alleviating factors. There was no aggravating factors. Patient reports associated abdominal swelling. 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 After the discharge she was taking pain medications and her condition started worsening after few days. She is in constant follow up with Dr Gann. Today in the emergency department WBCs 21.2, left shift neutrophils 85.5%, BUN 26, creatinine 3.1, GFR 17, lactic acid 8.0, no urinalysis has been collected or sent to lab, CT of abdomen and pelvis showed of free air in the abdomen which could be a suspected bowel perforation versus postsurgical changes, moderate ascites, fissure post surgical changes. Chest x-ray shows right pleural effusion. Additionally patient had a heart rate of 125, respirations 26, together with leukocytosis and lactic acidosis patient met clinical sepsis criteria additionally patient's blood pressure dropped to 85/50 mmHg requiring vasopressor support therefore meeting criteria for septic shock. Patient will be admitted to the intensive care unit. Emergency room physician spoke with patient's surgeon, Dr. Gann who requested patient be admitted under hospitalist service and she will follow this case along. 07/21/25 Patient was evaluated at the bedside. She was accompanied by her daughter. She is oriented to the time, place and person. She complained of abdominal pain in all the quadrants. She hasn't had bowel movement since Saturday and also is unable to pass flatus at this time. She has guarding, rigidity and tenderness all over the abdomen, showing the signs of peritonitis. She was seen by Dr Gann this m and is planned to be taken to OR this afternoon. Dueñas catheter is in place, as she wasn't able to pass the urine. There is no fever, chills and any other signs of infection. 07/22/25 Patient was evaluated at the bedside. She was accompanied by her daughter. She is oriented to the time, place and person. She underwent Diagnostic laparoscopy, abdominal washout, drain placement and diverting loop ileostomy creation, The procedure revealed Bilious peritonitis, 2 mm perforation of the colonic anastomosis. She is hemodynamically stable with Blood pressure of 110/73 and HR of 83. Currently she complains of abdominal pain which is getting better than yesterday, its 3-4/10 intensity. There is no rigidity. She is anxious about the outcomes and had discussion regarding her current clinical status and lab parameters. There is no fever, chills and any other signs of infection. 07/23/25 Patient was evaluated at the bedside. She was accompanied by her daughter. She is oriented to the time, place and person. She status post diagnostic laparoscopy, abdominal washout, drain placement and diverting loop ileostomy creation. Currently she complains of abdominal pain which is 5/10 intensity. She also complaints of mild lower back pain There is no fever, chills and any other signs of infection. She has CHRIS drain in-situ with clear fluid along with colostomy bag. She is currently tolerating clear liquid diet. 07/24/2025 Patient is seen and examined at the bedside. Vitals blood pressure ranging in 100s/50s, pulse rate 50s, SpO2 greater than 95% on room air. She mentions about experiencing pressure-like discomfort on the right side of the abdomen and pain when she tries to eat. No acute events last night. She denies fever, chills, nausea, vomiting, chest pain. CHRIS output approximately 100cc/hr, serosanguineous fluid. Ileostomy bag in place. She is tolerating clear liquid diet without any nausea/vomiting. Labs hemoglobin 9.8, BUN 38, creatinine improved from 1.6-1.1. 07/25/2025 Patient is seen and examined at the bedside. She complains of abdominal pain which is 7/10 in intensity. No acute events last night. She denies fever, chills, nausea, vomiting, chest pain. CHRIS output approximately 100cc/hr, serosanguineous fluid. Ileostomy bag in place. The patient has been started on spironolactone 25mg BID and Lasix 20 mg once daily. There is high output from CHRIS but it is clear serous, most likely related to her ascites from her history of liver cirrhosis. She is tolerating clear liquid diet without any nausea/vomiting. 07/26/2025 Patient is seen and examined at the bedside. She complains of abdominal pain which remains constant. No acute events last night. She denies fever, chills, nausea, vomiting, chest pain. Patient is status post with a CHRIS drain. The drain has been collecting the serosanguineous fluid secondary to ascites. She has been tolerating liquid diet and her diet has been advanced to soft diet. She still h as bloating for which probiotics and fibers has been recommended. Hemoglobin has gradually trended down to 9.2 and was given IV Venofer. Patient to get up and ambulate and work with physical therapy. 07/27/2025 Patient is seen and examined at the bedside. She complains of abdominal pain which is 6/10 in intensity. No acute events last night. She denies fever, chills, nausea, vomiting, chest pain. Patient is unable to tolerate the soft diet, hence she is currently receiving the liquid diets. The CHRIS drain output is still high and there was small amount of drainage observed in the right ileostomy. 07/28/2025 Patient is seen and examined at the bedside. She complains of abdominal pain which is 9/10 in intensity. No acute events last night. She denies fever, chills, nausea, vomiting, chest pain. Patient reported pain after eating but no nausea or vomiting. WBC is gradually trending up from 8.3-7.3-11.1-11.8. She had lidocaine patch placed this morning. She was started on simethicone 80 mg yesterday. Pertinent she is currently receiving Dilaudid 0.5 mg. Abdominal ultrasound has been ordered for further assessment. 07/29/2025 Patient is seen and examined at the bedside. She continues to complain of severe abdominal pain, rated 9/10 in intensity, unchanged from prior. She is currently receiving Dilaudid 0.5 mg for pain. She reports discomfort related to Dueñas catheterization. She denies fever, chest pain, nausea or vomiting at this time. No acute events were reported overnight. Blood pressure noted today is noted to be 98/54 mm Hg which is slightly low. Per surgery team, stoma is likely to be removed today. Hemoglobin has trended down from 9.7 g/dl to 9.0 g/dl. 07/30/2025 Patient is seen and examined at the bedside. She continues to complain of severe abdominal pain. Her abdominal distention has slightly improved. Dueñas's catheter was removed due to persistent discomfort. We will continue with scheduled removal of the ascites fluid and from CHRIS bulb. Ultrasound of abdomen was concerning for cholelithiasis with biliary sludge and gallbladder distention. HIDA scan was performed today. If consistent with cholecystitis patient will need cholecystostomy tube placement. 07/31/2025 Patient is seen and examined at the bedside. She was accompanied by her daughter. She continues to complain of severe abdominal pain. She is currently on Dilaudid 0.5mg Q4H PRN, which relieves the symptoms for 2-3 hours, after that she develops same level of pain and discomfort again. Currently awaiting the HIDA scan results. Her sodium level is 133 and albumin level is trending downwards from 2.3 to 2.1. Her Iron panel results showed: Iron 20L, TIBC 147L and %sat 16.3L. For her continuos pain she is started on Fentanyl 25mcg. CHRIS drain culture has beens sent. Based on the results of HIDA scan, CT chest will be planned. 08/01/2025: Patient is seen and examined this morning at bedside. She was accompanied by her daughter. The patient complains of severe abdominal pain. She is currently being managed with Hart, and Dilaudid for breakthrough pain. HIDA scan results are back, and show acute cholecystitis. Surgery has been made aware of the results. IR has been consulted for cholecystostomy tube placement. The patient will be started on PPN, as recommended by general surgery. The patient follows with Dr. Sol outpatient for her liver cirrhosis. The patients daughter would like her family educator Dr. Sol to be involved in the patients care, and be updated with her status. 08/02/2025: Patient is seen and evaluated in the room 432. She was accompanied by her daughter. She complains of severe abdominal pain. She also complained of bleeding through her vagina, pink tinged urine. Her vitals are in the normal range. Her labs are in the normal range except for Hb is 8.6, Na is 135, K is 5.2, BUN is 4, Glucose is 150, CRP is 103.90. She went for placement of cholecystectomy tube by IR. We did a pelvic exam and ordered a vaginal estrogen cream and urinalysis. Also for her hyperkalemia we checked the potassium again and its 4.1. So we will repeat the labs tomorrow. We ordered a dose of albumin for her. 08/03/2025: Patient is seen and evaluated in the room 432. She has mild abdominal pain today. Her pain improved after the placement for cholecystotomy tube. Her vitals are in the normal range. Her labs are normal except for hemoglobin 8.2, glucose 156, CRP 89.8. Her aerobic and anaerobic culture of drain showed no growth. Gastroenterology saw the patient and they recommended 25 grams of 25% IV albumin q12H for 3 days. Her bleeding through the vagina decreased. The drainage through the left abdomen is 100ml, right abdomen is 20ml, left anterior abdomen 5ml. 08/04/2025: Patient is seen and evaluated in the room 432. She has abdominal pain today. Her vitals are in the normal range. Her labs are normal except for Hb is 8, CRP is 72.10, glucose is 130. Aerobic and anaerobic drain culture showed no growth. She is not able to tolerate her food. The drainage through the left abdomen is 100ml, right abdomen is 20ml, left anterior abdomen 5ml. Gastroenterology is planning to do EGD tomorrow. Surgery wanted to do a CT abdomen and pelvis with IV contrast. CT scan showed perisplenic and infrasplenic fluid collection measuring 6.0 x 6.1 x 8.9 cm, splenomegaly, with spleen measuring 15.2 cm, cholecystostomy tube in situ with decompressed gallbladder, abdominal drain in situ with tip in the pelvis. We ordered T.bilirubin and we will monitor the output from colostomy tube. We are also planning to add metoclopramide. 08/05/2025: Patient is seen and evaluated in the room 432. She has abdominal pain today. Her abdomen is tender to touch and warm. Her vital signs are in the normal range except for BP is 117/45. Her labs are normal except for Hb is 8.2, sodium is 135, creatinine is 0.3, CRP is 60.9 The drain output from left abdomen is 40ml, left anterior abdomen 0ml, right abdomen 0ml. Her saturation is 100% on 10L of O2. Her labs are in the normal range except for Hb is 8.2, HCT is 25.9, sodium is 135, glucose is 107, CRP is 60.90. She underwent endoscopy today and they did biopsy from 3 sites. GI said that they will consult radiology to check whether CHRIS drain and cholecystostomy tube are in place. General surgery will consult IR to evaluate perisplenic fluid collection for potential aspiration. 08/06/2025: Patient is seen and evaluated in the room 432. She has abdominal pain today. Her abdomen is tender to touch and warm. Her vital signs are in the normal range except for 97/63. Her labs are in the normal range except for Hb is 8.1, sodium is 135, blood glucose is 151, CRP 53.60. We are waiting for IR consult for evaluation and for potential aspiration of perisplenic fluid. The drain output from right abdomen is 20ml. 08/07/2025: Patient is seen and evaluated in the room 432. She has abdominal pain today. Her abdomen is tender to touch and warm. Her vital signs are in the normal range except for blood pressure which is 102/60. Her labs are in the normal range except for Hb is 8.5, WBC is 4.4, RDW is 17.3, sodium is 134, glucose is 147. We are waiting for IR consult for evaluation and for potential aspiration of perisplenic fluid. The drain output from right abdomen is 20ml. The WARD MAID told me that she eats her food after taking her pain medications. Nurse is planning to start full liquid diet for lunch. 08/08/2025: She was evaluated at the bedside this morning. She is AAO x3. she complained of epigastric pain which gets worse with food . Moderate tenderness was appreciated on the epigastric region. Her blood pressure is 99/46, pulse 80. Remarkable lab is for WBC of 4.8, hemoglobin 9, CRP 43.90. She is scheduled with IR for perisplenic fluid aspiration and checking the position of cholecystostomy tube. She is on full liquid diet. She is on Zosyn, fluconazole. Surgery, GI, ID on the board. Rest of the plan as discussed below. 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 As per nurse, her cholecystostomy tube was already correctly positioned but had some stones so tube was flushed. She complained of epigastric and pelvic pain. For pain control, fentanyl patch has been ordered. She is pending perisplenic fluid aspiration by IR. Her blood pressure is 98/58, pulse 90. She is currently NPO. She is on Zosyn, fluconazole. Surgery, GI, ID on the board. Rest of the plan as discussed below. 08/10/2025: Patient was seen and examined at bedside. She underwent CT GUIDED PERISPLENIC PIGTAIL DRAINAGE CATHETER PLACEMENT with Aspiration of perisplenic fluid. There has been 25 ml sanguinous drainage so far in the catheter. Her cholecystostomy tube has had 30 mL drainage in the past 24 hours. She is currently on clear liquid diet tolerating it well. She continues to complain pain in her abdomen without any peritoneal signs. She was started on fentanyl patch yesterday. Gram stain and body fluid culture were sent after drainage of perisplenic abscess which showed RARE GRAM POSITIVE COCCI after 1 day. Patient is currently on Zosyn. REVIEW OF SYSTEMS CONSTITUTIONAL: No fever, chills, or night sweats. NEUROLOGICAL: Denies headache, sensory and motor deficit. CARDIOVASCULAR: Denies any exertional angina, dyspnea on exertion, palpitation s. PULMONARY: Denies any shortness of breath, cough, phlegm/sputum, hemoptysis, pleuritic chest pain. GASTROINTESTINAL: Patient complains of diffuse abdominal pain. She also has bloating. Denies nausea, vomiting. No peritoneal signs observed. GENITOURINARY: Denies frequency, urgency, nocturia, hematuria or incontinence. PHYSICAL EXAM GENERAL APPEARANCE: The patient is alert, awake and oriented and bedbound. NEUROLOGICAL: No sensory and motor deficits. CHEST: Normal chest expansion. LUNGS: Normal Vesicular breath sound. Absence of any rales, rhonchi or any whe ezing. CARDIOVASCULAR: Regular. S1 and S2 normal. No appreciable rubs, murmurs or gallops. ABDOMEN: Abdomen is soft and slightly tender. CHRIS drain is placed. Ileostomy creation. Cholecystostomy tube is placed. Drainage catheter in left upper abdominal quadrant as well. Absence of guarding, rigidity and rebound tenderness. GENITOURINARY: No suprapubic tenderness. No costovertebral angle tenderness. Vital Signs (last 8hr) Date Time Temp Pulse Resp B/P (MAP) Pulse Ox O2 Delivery O2 Flow Rate FiO2 08/10/25 12:00 97.3 73 18 98/61 93 Room Air 08/10/25 08:00 97.9 86 17 99/62 93 Room Air LABS: Laboratory: Test 08/10/25 11:32 08/10/25 05:03 08/10/25 02:15 08/09/25 07:42 Range/Units Whole Blood Glucose 161 H 70-110 MG/DL White Blood Count 5.6 4.8-10.8 K/uL Red Blood Count 2.98 L 4.00-5.50 MIL/uL Hemoglobin 8.8 L 12.0-16.0 g/dL Hematocrit 27.3 L 36-48 % Mean Corpuscular Volume 91.6 79-99 fL Mean Corpuscular Hemoglobin 29.5 27.0-33.0 pg Mean Corpuscular Hemoglobin Concent 32.2 32.0-36.0 g/dL Red Cell Distribution Width 17.5 H 11.0-15.5 % Platelet Count 170 130-400 K/uL Mean Platelet Volume 9.9 7.5-10.5 fL Nucleated Red Blood Cells 0.0 0.0-0.19 % Sodium Level 134 L 136-145 mmol/L Potassium Level 4.3 3.5-5.1 mmol/L Chloride Level 103 101-111 mmol/L Carbon Dioxide Level 21 21-32 mmol/L Blood Urea Nitrogen 16 7-18 mg/dL Creatinine 0.5 0.5-1.0 mg/dL Glomerular Filtration Rate Calc 109 >90 mL/min Random Glucose 156 H 70-105 mg/dL Total Calcium 8.8 8.5-10.1 mg/dL Phosphorus Level 2.9 2.5-4.9 mg/dL Magnesium Level 2.10 1.80-2.40 mg/dL Total Bilirubin 0.5 0.2-1.0 mg/dL Aspartate Amino Transf (AST/SGOT) 32 10-37 U/L Alanine Aminotransferase (ALT/SGPT) 15 12-78 U/L Alkaline Phosphatase 120 50-136 U/L Total Protein 6.9 6.0-8.3 g/dL Albumin 2.5 L 3.5-5.0 g/dL Urine Color LIGHT-YELLOW YELLOW Urine Appearance CLEAR CLEAR Urine pH 6.0 5.0-8.0 Urine Specific [place] 1.018 1.001-1.031 Urine Protein NEGATIVE NEGATIVE mg/dL Urine Glucose (UA) NEGATIVE NEGATIVE mg/dL Urine Ketones NEGATIVE NEGATIVE mg/dL Urine Occult Blood NEGATIVE NEGATIVE Urine Nitrate NEGATIVE NEGATIVE Urine Bilirubin NEGATIVE NEGATIVE mg/dL Urine Urobilinogen 0.2 0.2-1.0 mg/dL Urine Leukocyte Esterase NEGATIVE NEGATIVE Regino/uL Prothrombin Time 13.8 H 9.6-11.6 SEC Prothromb Time International Ratio 1.34 H 0.85-1.15 Activated Partial Thromboplast Time 32.9 26.3-35.5 SEC Test 08/09/25 03:33 Range/Units Immature Granulocyte % (Auto) 1.6 H 0-1 % Neutrophils (%) (Auto) 64.0 40.0-77.0 % Lymphocytes (%) (Auto) 14.4 L 21.0-51.0 % Monocytes (%) (Auto) 13.5 H 3.0-13.0 % Eosinophils (%) (Auto) 5.8 0.0-8.0 % Basophils (%) (Auto) 0.7 0.0-5.0 % Neutrophils # (Auto) 2.8 1.8-7.7 K/uL Lymphocytes # (Auto) 0.6 L 1.0-4.8 K/uL Monocytes # (Auto) 0.6 0.1-1.0 K/uL Eosinophils # (Auto) 0.25 0.00-0.70 K/uL Basophils # (Auto) 0.03 0.00-0.20 K/uL Absolute Immature Granulocyte (auto 0.07 0-1 K/uL Current Medications Medications (Trade) Dose Ordered Sig/Gregory Route PRN Reason Start Time Stop Time Status Last Admin Dose Admin Acetaminophen (TYLenol 500MG TAB) 500 mg Q6H6 PRN PO MILD PAIN (1-3) 07/27/25 16:30 08/07/25 12:15 DC Acetaminophen (TYLenol 500MG TAB) 500 mg Q6H6 PRN PO MILD PAIN (1-3) 08/07/25 10:00 08/07/25 10:03 DC Acetaminophen (TYLenol 650MG SUPPOSITORY) 650 mg Q6H PRN RC MILD PAIN (1-3) 07/21/25 00:00 07/27/25 16:22 DC Acetaminophen/ Hydrocodone Bitart (NORco 5/325MG) 1 tab Q4H PRN PO MODERATE PAIN (4-6) 07/31/25 16:30 08/05/25 16:29 DC 08/05/25 14:57 1 TAB Acetaminophen/ Hydrocodone Bitart (NORco 5/325MG) 1 tab Q4H PRN PO MODERATE PAIN (4-6) 08/07/25 12:30 08/12/25 12:29 08/10/25 09:33 1 TAB Albumin Human 50 ml @ 100 mls/hr Q12H IV 08/02/25 21:30 08/05/25 09:59 DC 08/05/25 10:12 100 MLS/HR Albumin Human 50 ml @ 0 mls/hr Q12H IV 08/02/25 18:30 08/02/25 20:04 DC Albumin Human 100 ml @ 0 mls/hr ONCE IV 07/25/25 12:00 07/26/25 11:59 DC 07/25/25 13:43 100 MLS/HR Clotrimazole (Lotrimin) 1 GM BID TP 07/29/25 21:00 08/28/25 20:59 08/10/25 09:54 1 GM Cyclobenzaprine HCl (Cyclobenzaprine HCl) 5 mg TID PO 07/25/25 14:00 07/26/25 14:00 DC 07/26/25 14:19 5 MG Fentanyl (DURAgesic 12 MCG/HR PATCH) 12 mcg Q72H TD 08/09/25 13:00 08/09/25 15:19 DC Fentanyl (DURAgesic 12 MCG/HR PATCH) 12 mcg Q72H TD 08/09/25 15:30 08/14/25 15:29 08/09/25 15:38 12 MCG Fentanyl (DURAgesic 25 MCG/HR PATCH) 25 mcg Q72H TD 07/31/25 14:30 07/31/25 14:44 DC Fluconazole/ Sodium Chloride (DiFLUCan 200 MG/ NS 100 ML) 200 mg Q24H IVPB 07/21/25 21:00 08/20/25 20:59 08/09/25 20:11 200 MG Furosemide (LASix 20MG TAB) 20 mg DAILY PO 07/25/25 11:00 08/02/25 11:53 DC 08/02/25 09:42 20 MG Gabapentin (NEURontin 100 mg CAP) 100 mg TID PO 07/29/25 14:00 08/02/25 09:21 DC 08/01/25 20:14 100 MG Hydromorphone HCl (DiLAUDid 0.5MG INJ) 0.5 mg Q4H PRN IVP SEVERE PAIN (7-10) 07/24/25 10:00 07/29/25 09:59 DC 07/29/25 08:22 0.5 MG Hydromorphone HCl (DiLAUDid 0.5MG INJ) 0.5 mg Q4H PRN IVP SEVERE PAIN (7-10) 07/29/25 13:30 08/03/25 13:29 DC 08/03/25 13:09 0.5 MG Hydromorphone HCl (DiLAUDid 0.5MG INJ) 0.5 mg Q4H PRN IVP SEVERE PAIN (7-10) 08/03/25 18:00 08/07/25 10:03 DC 08/07/25 05:09 0.5 MG Hydromorphone HCl (DiLAUDid 0.5MG INJ) 0.5 mg Q4H PRN IVP SEVERE PAIN (7-10) 08/07/25 10:00 08/12/25 09:59 08/10/25 04:13 0.5 MG Insulin Human Regular (humuLIN R 100 UNIT/ML 3ML) INSULIN SLIDING SCAL... ACHS SQ 07/21/25 07:30 08/20/25 07:29 07/22/25 20:40 3 UNIT Lactated Ringer's 1,000 ml @ 75 mls/hr [id number] IV 07/21/25 00:00 07/21/25 13:17 DC 07/21/25 02:57 75 MLS/HR Lactated Ringer's 1,000 ml @ 75 mls/hr [id number] IV 07/21/25 13:30 07/24/25 11:09 DC 07/24/25 09:27 75 MLS/HR Lactobacillus Rhamnosus ([facility]) 1 each DAILY20 PO 07/26/25 20:00 08/25/25 19:59 08/09/25 20:11 1 EACH Lidocaine (Lidoderm Patch 5%) 1 patch DAILY TP 07/28/25 09:00 08/27/25 08:59 08/10/25 09:34 1 PATCH Lidocaine HCl/Al Hydroxide/Mg Hydroxide/ Dicyclomine HCl 20ML OR AD ONCE PO 08/06/25 16:30 08/07/25 16:29 DC 08/06/25 16:45 20 ML Magnesium Sulfate 50 ml @ 0 mls/hr PROTOCOL PRN IV MAGNESIUM PROTOCOL 07/21/25 07:00 08/20/25 06:59 08/01/25 06:05 25 MLS/HR Metoclopramide HCl (regLAN 10MG IV) 5 mg BID IVP 08/04/25 21:00 09/03/25 20:59 08/10/25 09:33 5 MG Metronidazole/ Sodium Chloride (flaGYL) 500 mg Q8H IV 07/21/25 14:00 07/21/25 13:40 DC Morphine Sulfate (morPHINE 2MG SYG) 2 mg Q4H PRN IVP SEVERE PAIN (7-10) 07/21/25 00:30 07/21/25 13:18 DC 07/21/25 04:46 2 MG Morphine Sulfate (morPHINE 4MG SYG) 4 mg Q3H PRN IV MODERATE PAIN (4-6) 07/21/25 13:30 07/26/25 16:29 DC 07/26/25 10:51 4 MG Norepinephrine 250 ml @ 0 mls/hr PROTOCOL IV 07/20/25 23:30 08/03/25 08:27 DC 07/21/25 10:56 18.45 MLS/HR Ondansetron HCl (zoFRAN 4MG INJ) 4 mg Q4H PRN IVP NAUSEA 07/21/25 13:30 08/20/25 13:29 Ondansetron HCl (zoFRAN 4MG INJ) 4 mg Q6H PRN IV NAUSEA/VOMITING 07/21/25 00:00 07/21/25 13:18 DC Pantoprazole Sodium (PROTonix 40MG INJ) 40 mg BID IV 07/26/25 21:00 08/20/25 08:59 08/10/25 09:34 40 MG Pantoprazole Sodium (PROTonix 40MG INJ) 40 mg BID IVP 08/05/25 21:00 08/06/25 08:39 DC 08/05/25 20:25 40 MG Pantoprazole Sodium (PROTonix 40MG INJ) 40 mg DAILY IV 07/21/25 09:00 07/26/25 09:31 DC 07/26/25 08:55 40 MG Pharmacy Profile Note (Pharmacy Communication) 1 each ONCE MISC 07/21/25 15:30 07/21/25 15:16 DC Pharmacy Profile Note (Pharmacy Communication) 1 each ONCE MISC 08/06/25 16:00 08/07/25 07:07 DC Piperacillin Sod/ Tazobactam Sod 50 ml @ 200 mls/hr ONCE STAT IVPB 07/20/25 19:15 07/20/25 19:29 DC 07/20/25 20:32 200 MLS/HR Piperacillin Sod/ Tazobactam Sod (Zosyn 3.375gm+NS 50ml) 3.375 gm Q12H IV 07/21/25 00:00 07/31/25 00:00 DC 07/30/25 23:55 3.375 GM Piperacillin Sod/ Tazobactam Sod (Zosyn 3.375gm+NS 50ml) 3.375 gm Q8H IVPB 07/31/25 11:30 08/10/25 11:29 DC 08/10/25 04:05 3.375 GM Piperacillin Sod/ Tazobactam Sod (Zosyn 3.375gm+NS 50ml) 3.375 gm Q8H IVPB 08/10/25 13:00 08/20/25 12:59 Potassium Chloride 100 ml @ 100 mls/hr AD PRN IV POTASSIUM PROTOCOL 07/24/25 08:30 08/23/25 08:29 07/30/25 06:23 100 MLS/HR Potassium Chloride (K-Dur/Klor-Con 20meq) 20 meq AD PRN PO POTASSIUM PROTOCOL 07/24/25 08:30 08/23/25 08:29 07/27/25 20:33 20 MEQ Potassium Chloride (KCl 10% Elixir 20meq/15ml) 20 meq AD PRN PO POTASSIUM PROTOCOL 07/24/25 08:30 08/23/25 08:29 07/31/25 08:15 20 MEQ Psyllium Hydrophilic Mucilloid (Metamucil) 1 tbs BID PO 07/26/25 21:00 08/25/25 20:59 08/10/25 09:33 1 TBS Simethicone (Mylicon) 80 mg Q6H6 PO 07/27/25 12:00 08/26/25 11:59 10/7/25 12:19 80 MG Sodium Bicarbonate 150 meq/Sodium Chloride 1,150 ml @ 0 mls/hr Q0M IVP 07/21/25 14:00 07/26/25 09:31 DC Sodium Chloride (NS 50ml) 50 ml AD IV 07/31/25 11:30 07/31/25 11:12 DC Sodium Chloride (Normal Saline Flush) 10 ml Q8H IJ 08/09/25 11:00 09/08/25 10:59 Spironolactone (Aldactone 25mg) 25 mg BID PO 07/25/25 21:00 07/26/25 09:01 DC 07/26/25 08:56 25 MG Sucralfate (Carafate) 1 gm ACHS PO 07/29/25 21:00 08/28/25 20:59 08/10/25 12:19 1 GM Thiamine HCl (Vitamin B-1) 100 mg DAILY IVP 07/22/25 21:00 08/21/25 20:59 08/10/25 09:33 100 MG Thiamine HCl 100 mg/Sodium Chloride 50 ml @ 100 mls/hr Q24H IM 07/21/25 15:30 07/21/25 16:25 DC Vancomycin HCl (Vancomycin 1g/ 250ml Kit) 1 gm ONCE STAT IV 07/20/25 21:23 07/20/25 21:26 DC 07/20/25 22:06 1 GM Vasopressin 20 units/Sodium Chloride 100 ml @ 0 mls/hr PROTOCOL IV 07/21/25 00:30 08/03/25 08:27 DC 07/21/25 00:10 9 MLS/HR DIAGNOSTICS / RADIOLOGY: PATIENT: DALLAS BUCHANAN MR#: [id number] : 1970 SEX: F AGE: 55 LOCATION: 4AH ORDER 36 STATUS: ADM IN REPORT#: [id number] SERVICE 35 REASON: epigastric pain. not tolerating meals. ORDERING PHYSICIAN: SUSAN GANN MD PROCEDURE: ABD PEL W - CT ABDOMEN/PELVIS W/CONTRAST EXAM: CT Abdomen and Pelvis with IV contrast CLINICAL HISTORY: epigastric pain. not tolerating meals. TECHNIQUE: Axial computed tomography images of the abdomen and pelvis with intravenous contrast. CONTRAST: with intravenous contrast. COMPARISON: Compared with the previous CT dated 07/20 and USG dated 07/29 FINDINGS: LUNG BASES: Grossly stable atelectasis and scarring at the lung bases. LIVER: Unremarkable. GALLBLADDER AND BILE DUCTS: The gallbladder is decompressed with a cholecystostomy tube in situ. PANCREAS: Unremarkable. SPLEEN: The spleen is enlarged in size, measuring 15.2 cm. ADRENAL GLANDS: Unremarkable. KIDNEYS, URETERS, AND BLADDER: No hydronephrosis or nephrolithiasis. No ureteral calculi. The urinary bladder is unremarkable. STOMACH AND BOWEL: The ileostomy site appears unremarkable. Interval resolution of previously seen moderate small bowel enteritis. No obstruction. APPENDIX: No CT evidence for appendicitis. PERITONEUM: Near complete interval resolution of previously seen moderate ascites in the abdomen and pelvis. Collection in the perisplenic and infra-splenic region measuring 6.0 x 6.1 x 8.9 cm. Interval resolution of previously seen pneumoperitoneum. Diffuse mesenteric fat stranding, likely postoperative changes. LYMPH NODES: No lymphadenopathy. REPRODUCTIVE: Unremarkable as visualized. VASCULATURE: No aortic aneurysm. ABDOMINAL WALL AND SOFT TISSUES: Interval resolution of previously seen subcutaneous emphysema in the anterior abdominal wall and left lateral chest wall. Abdominal drain in situ with tip in the pelvis. BONES: No fracture or suspicious osseous abnormality. IMPRESSION: 1. Perisplenic and infrasplenic fluid collection measuring 6.0 x 6.1 x 8.9 cm. 2. Splenomegaly, with spleen measuring 15.2 cm. 3. Cholecystostomy tube in situ with decompressed gallbladder. 4. Abdominal drain in situ with tip in the pelvis. 5. No acute findings in the remainder of the abdomen and pelvis. /[facility] DICTATED BY: ELDON MILLER Jr., MD DATE: 08/04/251636 ELECTRONICALLY SIGNED BY: ELDON MILLER Jr., MD DATE: 08/04/251636 PATIENT: DALLAS BUCHANAN MR#: [id number] : 1970 SEX: F AGE: 55 LOCATION: H ORDER 1524 STATUS: ADM IN REPORT#: [id number] SERVICE 1523 REASON: cholecystitis ORDERING PHYSICIAN: BENEDICTO OBRIEN Jr. PROCEDURE: HIDA PHARM - NM HIDA/HEPATOBILI W/ PHARMACO EXAM: HIDA scan. INDICATION: Severe RUQ Pain to rule out cholecystitis. REFERENCE EXAMINATION: USG July 29, 2025. TECHNIQUE: Sequential images of the abdomen were obtained in the anterior projection after IV administration of 6.0 mCi of Tc99m Mebrofenin. FINDINGS: Tracer activity throughout the liver is homogeneous without focal defects. There is prompt excretion of the pharmaceutical into the bile ducts and into the small bowel, without evidence of obstruction. There is no visualization of the gallbladder at the conclusion of the examination. IMPRESSION: Scintigraphic findings are compatible with acute cholecystitis. /[facility] DICTATED BY: ELDON MILLER Jr., MD DATE: 08/01/25 1011 ELECTRONICALLY SIGNED BY: ELDON MILLER Jr., MD DATE: 08/01/25 1011 PATIENT: DALLAS BUCHANAN MR#: [id number] : 1970 SEX: F AGE: 55 LOCATION: 4AH ORDER 10 STATUS: ADM IN REPORT#: [id number] SERVICE 09 REASON: ABD PAIN ORDERING PHYSICIAN: NIKKI MUNOZ NP PROCEDURE: ABD 1VW - ABD 1VW EXAM: CR Abdomen, 1 view. CLINICAL HISTORY: Pain. COMPARISON: None provided. FINDINGS: Dilated small bowel loops are seen in mid abdomen. There is a density in the pelvis which may represent a send drainage catheter. No free air is evident. No abnormal calcification. No aggressive appearing osseous lesion. IMPRESSION: Dilated small bowel loops are seen in mid abdomen. Density in the pelvis which may represent a send drainage catheter. /[facility] DICTATED BY: TOBI LEAHY MD DATE: 07/29/251032 ELECTRONICALLY SIGNED BY: TOBI LEAHY MD DATE: 07/29/25 103 PATIENT: DALLAS BUCHANAN MR#: [id number] : 1970 SEX: F AGE: 55 LOCATION: 4AH ORDER 1519 STATUS: ADM IN REPORT#: [id number] SERVICE 1516 REASON: Liver cirrhosis ORDERING PHYSICIAN: LISET DOUGLAS MD PROCEDURE: ABDOMEN - US ABDOMINAL COMPLETE EXAM: US Abdomen complete CLINICAL HISTORY: Liver cirrhosis TECHNIQUE: Real-time ultrasound of the abdomen (complete) with image documentation. COMPARISON: None provided. FINDINGS: LIVER: Liver measures 12.3 cm with a heterogeneous coarse echotexture. GALLBLADDER: Gallbladder contains stones and sludge. Gallbladder is distended. COMMON BILE DUCT: No dilation. PANCREAS: Pancreas not well-visualized due to overlying bowel gas KIDNEYS: Normal renal contours. No renal mass or calculus. No hydronephrosis. SPLEEN: Normal in size and echogenicity. No mass identified. AORTA: No aneurysm. IVC: Unremarkable as visualized. MISCELLANEOUS: Small amount of abdominal ascites. IMPRESSION: 1. Cirrhotic-appearing liver. 2. Cholelithiasis and biliary sludge with gallbladder distension. 3. Small volume ascites. /[facility] DICTATED BY: CYNTHIA JULIAN MD DATE: 07/29/25 105 ELECTRONICALLY SIGNED BY: CYNTHIA JULIAN MD DATE: 07/29/25 105 PATIENT: DALLAS BUCHANAN MR#: [id number] : 1970 SEX: F AGE: 55 LOCATION: 2BH ORDER 1108 STATUS: ADM IN REPORT#: [id number] SERVICE 1106 REASON: sob ORDERING PHYSICIAN: PREET BOSTON MD PROCEDURE: CXR1VW - CHEST 1VW CHEST 1VW REASON: sob COMPARISON: Study from 07/21/2025 is available. FINDINGS: Single view of the chest was obtained. Lungs are clear. Heart size is normal. There is no pulmonary vascular congestion. There is a right-sided PIC catheter with tip in superior vena cava. There is a nasogastric tube with the tip in the fundus of the stomach. Mediastinum and bony thorax appear unremarkable. IMPRESSION: 1. No acute cardiopulmonary process 2. The support lines are in satisfactory position.. DICTATED BY: GREER FIORE MD DATE: 07/22/251349 ELECTRONICALLY SIGNED BY: GREER FIORE MD DATE: 07/22/251353 PATIENT: DALLAS BUCHANAN MR#: [id number] : 1970 SEX: F AGE: 55 LOCATION: [facility] ORDER STATUS: ADM IN REPORT#: [id number] SERVICE REASON: PICC LINE ORDERING PHYSICIAN: HEATHER LEACH APRN PROCEDURE: CXR1VW - CHEST 1VW EXAM: CR Chest, single view. CLINICAL HISTORY: PICC line COMPARISON: Prior same day chest radiograph. FINDINGS: Right-sided PICC catheter with tip in the cavoatrial junction. Subsegmental atelectasis in the right lower lobe. No evidence of pleural effusion or pneumothorax. The cardiomediastinal silhouette is within normal limits. No acute osseous abnormality. IMPRESSION: Right-sided PICC catheter with tip in the cavoatrial junction. Subsegmental atelectasis in the right lower lobe. No evidence of pleural effusion or pneumothorax. Compared to the prior study, there is interval placement of the right-sided PICC line and interval resolution of the subsegmental atelectasis in the left lower lobe. /[facility] DICTATED BY: ELDON MILLER Jr., MD DATE: 07/21/25816 ELECTRONICALLY SIGNED BY: ELDON MILLER Jr., MD DATE: 07/21/25816 PATIENT: DALLAS BUCHANAN MR#: [id number] : 1970 SEX: F AGE: 55 LOCATION: [facility] ORDER 14 STATUS: [facility] REPORT#: [id number] SERVICE 12 REASON: CHEST PAIN/COUGH ORDERING PHYSICIAN: ALHAJI SHINE NP PROCEDURE: CXR1VW - CHEST 1VW EXAM: XR Chest, 1 View. CLINICAL HISTORY: 55 year old female with chest pain and cough. COMPARISON: None provided. FINDINGS: LUNGS: The lungs demonstrate evidence of atelectasis. PLEURAL SPACES: A small right pleural effusion is present. HEART: The heart size is normal. BONES: No acute osseous abnormality. IMPRESSION: 1. Small right pleural effusion and right lung base atelectasis. /[facility] DICTATED BY: EDWIGE LEDESMA MD DATE: 07/20/252046 ELECTRONICALLY SIGNED BY: EDWIGE LEDESMA MD DATE: 07/20/252046 PATIENT: DALLAS BUCHANAN MR#: [id number] : 1970 SEX: F AGE: 55 LOCATION: [facility] ORDER 14 STATUS: REG ER REPORT#: [id number] SERVICE 12 REASON: Abdominal Pain ORDERING PHYSICIAN: ALHAJI SHINE NP PROCEDURE: ABD PEL W - CT ABDOMEN/PELVIS W/CONTRAST ADDENDUM REPORT ADDENDUM: Results were shared by telephone at 23:23 pm on 07-20-2025 and acknowledged by Pt nurse Ms. SHIN BOYKIN. /[facility] EXAM: CT Abdomen and Pelvis with Intravenous Contrast CLINICAL HISTORY: 55-year-old female with abdominal pain. TECHNIQUE: Axial computed tomography images of the abdomen and pelvis with intravenous contrast. Dose reduction technique was used including one or more of the following: automated exposure control, adjustment of mA and kV according to patient size, and/or iterative reconstruction. CONTRAST: Omnipaque 350, 75 mL COMPARISON: None provided. FINDINGS: LUNG BASES: Atelectasis and scarring at the lung bases. LIVER: Unremarkable. GALLBLADDER AND BILE DUCTS: Tiny gallstone seen. PANCREAS: Unremarkable. SPLEEN: Unremarkable. ADRENAL GLANDS: Unremarkable. KIDNEYS, URETERS, AND BLADDER: Dueñas catheter seen in the bladder lumen. No hydronephrosis or nephrolithiasis. No ureteral calculi. STOMACH AND BOWEL: Edema or loops of small bowel suggesting moderate small bowel enteritis. Free air in the upper abdomen is seen, suggesting perforated bowel. No obstruction. APPENDIX: No CT evidence for appendicitis. PERITONEUM: Moderate ascites in the abdomen and pelvis. No free air under the diaphragm. LYMPH NODES: No lymphadenopathy. REPRODUCTIVE: Unremarkable as visualized. VASCULATURE: No aortic aneurysm. ABDOMINAL WALL AND SOFT TISSUES: There is air in the subcutaneous soft tissue seen anteriorly, suggesting recent postsurgical changes; please correlate with surgical history. BONES: No fracture or suspicious osseous abnormality. IMPRESSION: 1. Moderate small bowel enteritis with free air in the upper abdomen, suggesting perforated bowel versus post surgical changes. No obstruction. 2. Moderate ascites in the abdomen and pelvis. 3. Air in the subcutaneous soft tissue anteriorly, suggesting recent postsurgical changes; please correlate with surgical history. /[facility] DICTATED BY: EDWIGE LEDESMA MD DATE: 07/20/25 2337 ELECTRONICALLY SIGNED BY: DATE: EXAM: CT Abdomen and Pelvis with Intravenous Contrast CLINICAL HISTORY: 55-year-old female with abdominal pain. TECHNIQUE: Axial computed tomography images of the abdomen and pelvis with intravenous contrast. Dose reduction technique was used including one or more of the following: automated exposure control, adjustment of mA and kV according to patient size, and/or iterative reconstruction. CONTRAST: Omnipaque 350, 75 mL COMPARISON: None provided. FINDINGS: LUNG BASES: Atelectasis and scarring at the lung bases. LIVER: Unremarkable. GALLBLADDER AND BILE DUCTS: Tiny gallstone seen. PANCREAS: Unremarkable. SPLEEN: Unremarkable. ADRENAL GLANDS: Unremarkable. KIDNEYS, URETERS, AND BLADDER: Dueñas catheter seen in the bladder lumen. No hydronephrosis or nephrolithiasis. No ureteral calculi. STOMACH AND BOWEL: Edema or loops of small bowel suggesting moderate small bowel enteritis. Free air in the upper abdomen is seen, suggesting perforated bowel. No obstruction. APPENDIX: No CT evidence for appendicitis. PERITONEUM: Moderate ascites in the abdomen and pelvis. No free air under the diaphragm. LYMPH NODES: No lymphadenopathy. REPRODUCTIVE: Unremarkable as visualized. VASCULATURE: No aortic aneurysm. ABDOMINAL WALL AND SOFT TISSUES: There is air in the subcutaneous soft tissue seen anteriorly, suggesting recent postsurgical changes; please correlate with surgical history. BONES: No fracture or suspicious osseous abnormality. IMPRESSION: 1. Moderate small bowel enteritis with free air in the upper abdomen, suggesting perforated bowel versus post surgical changes. No obstruction. 2. Moderate ascites in the abdomen and pelvis. 3. Air in the subcutaneous soft tissue anteriorly, suggesting recent postsurgical changes; please correlate with surgical history. /[facility] DICTATED BY: EDWIGE LEDESMA MD DATE: 07/20/252317 ELECTRONICALLY SIGNED BY: EDWIGE LEDESMA MD DATE: 07/20/252317 ASSESSMENT: Suspected Bowel Perforation POA Perisplenic and infrasplenic fluid collection with splenomegaly - suspected a bscess Hyponatremia Bacterial peritonitis Cholelithiasis Small Bowel Obstruction, Suspected Anastomotic Leak Bilious peritonitis s/p Diagnostic laparoscopy, abdominal washout, drain placement and diverting loop ileostomy creation Atrophic vaginitis hyperkalemia Iron Deficiency anemia Diabetes Mellitus Type 2 POA Acute Kidney Injury POA Septic Shock POA Cirrhosis of liver POA Esophageal Varices Recent Robotic takedown of splenic flexure mobilization, robotic takedown of colovesical fistula with sigmoid colectomy and end-to-end anastomosis surgery PLAN: Bilious peritonitis status post Diagnostic laparoscopy, abdominal washout, drain placement and diverting loop ileostomy creation -Continue close monitoring of the patient -continue physical therapy -Monitor CHRIS drain output -Continues with high output from CHRIS but it is clear serous, most likely related to her ascites from her history of liver cirrhosis -Continue Lactated Ringer's at 75 ml/hr for volume resuscitation and electrolyte replacement -continue Zosyn [day 21] and fluconazole [day 21] -Flexeril 5 mg t.i.d. has been started by the Surgery team. -Probiotics and Fibers have been added for bloating. -Protonix IV increased to twice daily. - Patient has been started on Hart by general surgery for abdominal pain, and is advised to take Diluadid only for breakthrough pain. - Patient was started on fentanyl patch on 08/09/2020 for pain control. - HIDA scan positive for acute cholecystitis. Surgery has been made aware. - IR did a Fluoroscopy and ultrasound-guided placement of cholecystotomy tube and cholecystogram on 08/02/2025. -Dr. Sol saw the patient and he recommended 25g of 25% albumin for 3 days. -Gastroenterology is planning to do EGD and they did biopsy from 3 sites. GI said that they will consult radiology to check whether CHRIS drain and cholecystos merary tube are in place. -Surgery wanted to do a CT abdomen and pelvis with IV contrast. CT scan showed perisplenic and infrasplenic fluid collection measuring 6.0 x 6.1 x 8.9 cm, splenomegaly, with spleen measuring 15.2 cm, cholecystostomy tube in situ with decompressed gallbladder, abdominal drain in situ with tip in the pelvis. -GI said that they will consult radiology to check whether CHRIS drain and cholecystostomy tube are in place. 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 It showed some stones and the tube was flushed. She underwent drainage of perisplenic fluid collection with drainage catheter insertion. G stain and fluid culture are pending. -We ordered T.bilirubin and we will monitor the output from colostomy tube. -We are also planning to add metoclopramide. Perisplenic and infrasplenic fluid collection with splenomegaly * CT scan showed perisplenic and infrasplenic fluid collection measuring 6.0 x 6.1 x 8.9 cm, splenomegaly, with spleen measuring 15.2 cm * IR drained the perisplenic and intra splenic fluid with placement of drainage catheter. Bacterial Peritonitis * Post Surgical patient with Bacterial peritonitis positive for ESBL * Culture and sensitivity shows susceptibility to Zosyn, Gentamicin and Meropenem. * Likely secondary to post-operative intraabdominal infection with risk of ongoi ng contamination. * Currently patient is on Zosyn (Day 21) * For her continuos pain she is started on Fentanyl 25mcg. CHRIS drain culture has beens sent. Cholelithiasis * Patient complained of upper abdominal pain * Ultrasound abdomen showed: Cirrhotic-appearing liver * Cholelithiasis and biliary sludge with gallbladder distension and Small volume ascites. * Hida scan shows acute cholecystitis. * Per Surgery: IR to be consulted for cholecystostomy tube placement. * IR did a Fluoroscopy and ultrasound-guided placement of cholecystotomy tube and cholecystogram on 08/02/2025. * IR evaluated patient in the carpenter labor supervisor for cholecystostomy tube placement. Patient was found to have normally positioned tube with some stones for which the tube was flushed.. Small Bowel Obstruction (Resolved) * Patient complaints of abdominal pain which is 9/10 on intensity * Abdominal Xray showed: Dilated small bowel loops are seen in mid abdomen * Perform Serial abdominal exams * Pain management(avoid excess opioids if ileus is suspected) * Evaluate drain, bowel status * Monitor for resolution vs progression of Ileus/obstruction. 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 - CT abdominal pelvis w/contrast done on 07/20/2025 showed Free air in the upper abdomen is seen, suggesting perforated bowel vs post surgical changes. No obstruction. -underwent Diagnostic laparoscopy, abdominal washout, drain placement and diverting loop ileostomy creation for biliary peritonitis Atrophic vaginitis * Her bleeding is resolved * We did a pelvic examination. * Ordered topical estrogen. * Urinalysis showed cloudy urine, protein 30, trace occult blood, RBC is 11 to 25, WBC is 26 to 50. hyperkalemia * Today his potassium is 4.3 * Will repeat her labs tomorrow. Iron Deficiency anemia * Hemoglobin today is 8.8. * Iron sucrose (venofer) has been ordered. * Anemia panel has been ordered. Results showed Iron 24L, %sat 16.3 and TIBC 147L. 07/30/25 * Recommend trending Hgb and transfuse as needed to goal Hgb >7. * Plan to initiate the patient on Venofer, her last dose of Venofer was 200 mg on 07/26/2025 * Iron level is 20L, % saturation 11.9, TIBC 167L, Ferritin 129. 07/25/25 Septic Shock -resolved -Her WBC is 5.6 call today. 08/10/2025 -Her WBC during the presentation was 21.2 -lactic acid is 1.5 on 07/31/2025 -blood and urine culture results are negative Acute Kidney Injury Resolved -Creatinine improved from 1.6-1.1-0.7-0.6-0.6-0.6-0.6-0.6-0.5-0.6-0.6-0.5- 0.5-0.3-0.6-0.4-0.6 08/09/2025 -Initial FeNA is 0.1 %, probably secondary to dehydration and NSAIDs overuse. -initial Urine sodium is < 13 and urine creatinine is 132.17. -Avoid nephrotoxic agents, eg. NSAIDS. -Weight patient daily. -Monitor intake and output. -Ordered urinalysis Cirrhosis of liver -Patient has a past history of cirrhosis of liver. - Liver functions are within normal limits. AST 20, ALT 9 and ALP 67. - Avoid NSAIDs and high dose acetaminophen. -Maintain appropriate volume of the patient. -Patient has been started on Spironolactone 25 mg b.i.d. and Lasix 20 mg once daily. 07/25/25 -Albumin was given for the hypotension. -Patients family is requesting that Dr. Sol be involved in the patients care. Supportive measures -Maintain IV fluids, correct electrolytes -Serial abdominal exams -Wet Process Operator on avoidance of NSAIDS and other related triggers. -Monitor Vitals and perform morning labs regularly Continue GI prophylaxis with Pantop Continue DVT prophylaxis with SCDs, we will avoid heparin due to history of allergies to porcine, we will coordinate with surgery consult on initiation of other anticoagulants ATTESTATION BY PHYSICIAN I have seen and examined the patient. I reviewed the documentation, medical decision making, and treatment plan as noted by the mid-level provider above. I agree with the findings and plan of care. AYAKA BARR MD, MUHAMMAD H MD Aug 10, 2025 14:16
[2025-08-10] MEDS: ZOSYN 3.375GM +NS 50ML IVPB SCH (14:44)
--- NOTE | 2025-08-10 14:54 | NUR ---
Nutritional f/u Note: Chart, meds, and labs Reviewed. Pt on clinimix 4.25/5% @80ml/hr providing 82gm pro and 653kcal/day. PPN not meeting kcal needs but is meeting 100% of protein needs. clear liquid diet tolerating it well. Wt Status: current wt 60kg admit wt 64kg, pt wt trending downwards Recommend: -Advance diet as per GI recommendations. -D/c PPN when pt able to tolerate >75% of full liquid diet. --ProStat BID (30 ml) JELLO -Lipid emulsion x 3 weekly m, w, f to prevent essential fatty acid deficiency. Hold if triglycerides >400 or active sepsis not controlled. -Check Lipid Panel weekly on Mondays - to provide further recommendations based on clinical progress. -Monitor feeding tolerance, %, wt, and labs -If No BM >3days consider bowel stimulant. - Please notify RD if additional nutrition concerns arise. Addendum: 08/10/25 at [address] Amended: Links added.
--- NOTE | 2025-08-10 15:56 | PN ---
GENERAL SURGERY PROGRESS NOTE Date/Time Patient Seen: [ 08/10/2025 12:45 PM] Interval History: [55-year-old female, postop diagnostic laparoscopy, abdominal washout, drain placement and diverting loop ileostomy creation by Dr. Gann on 07/21/2025 Patient had placement of percutaneous drain to left upper quadrant by IR yesterday Output from drain was reported at 25 cc serosanguineous output IR was also able to irrigate cholecystostomy drain, reported that there were a few stones and is currently draining about 30 cc bilious output Patient reports that she continues having epigastric and left upper quadrant abdominal pain after eating. Denies nausea and vomiting. She is on TPN No output reported from CHRIS drain Patient states she tried eating some of her liquid diet but starts getting very bloated, so she stops eating Nurse reports patient has been getting out of bed and ambulating with PT/OT WBCs 5.6 H&H 8.8 and 27.3 Bilirubin 0.5 with normal LFTs Current Medications Medications (Trade) Dose Ordered Sig/Gregory Route Start Time Stop Time Status Last Admin Dose Admin Albumin Human 50 ml @ 100 mls/hr Q12H IV 08/02/25 21:30 08/05/25 09:59 DC 08/05/25 10:12 100 MLS/HR Albumin Human 50 ml @ 0 mls/hr Q12H IV 08/02/25 18:30 08/02/25 20:04 DC Albumin Human 100 ml @ 0 mls/hr ONCE IV 07/25/25 12:00 07/26/25 11:59 DC 07/25/25 13:43 100 MLS/HR Clotrimazole (Lotrimin) 1 GM BID TP 07/29/25 21:00 08/28/25 20:59 08/10/25 09:54 1 GM Cyclobenzaprine HCl (Cyclobenzaprine HCl) 5 mg TID PO 07/25/25 14:00 07/26/25 14:00 DC 07/26/25 14:19 5 MG Fentanyl (DURAgesic 12 MCG/HR PATCH) 12 mcg Q72H TD 08/09/25 13:00 08/09/25 15:19 DC Fentanyl (DURAgesic 12 MCG/HR PATCH) 12 mcg Q72H TD 08/09/25 15:30 08/14/25 15:29 08/09/25 15:38 12 MCG Fentanyl (DURAgesic 25 MCG/HR PATCH) 25 mcg Q72H TD 07/31/25 14:30 07/31/25 14:44 DC Fluconazole/ Sodium Chloride (DiFLUCan 200 MG/ NS 100 ML) 200 mg Q24H IVPB 07/21/25 21:00 08/20/25 20:59 08/09/25 20:11 200 MG Furosemide (LASix 20MG TAB) 20 mg DAILY PO 07/25/25 11:00 08/02/25 11:53 DC 08/02/25 09:42 20 MG Gabapentin (NEURontin 100 mg CAP) 100 mg TID PO 07/29/25 14:00 08/02/25 09:21 DC 08/01/25 20:14 100 MG Insulin Human Regular (humuLIN R 100 UNIT/ML 3ML) INSULIN SLIDING SCAL... ACHS SQ 07/21/25 07:30 08/20/25 07:29 07/22/25 20:40 3 UNIT Lactated Ringer's 1,000 ml @ 75 mls/hr [id number] IV 07/21/25 00:00 07/21/25 13:17 DC 07/21/25 02:57 75 MLS/HR Lactated Ringer's 1,000 ml @ 75 mls/hr [id number] IV 07/21/25 13:30 07/24/25 11:09 DC 07/24/25 09:27 75 MLS/HR Lactobacillus Rhamnosus ([facility]) 1 each DAILY20 PO 07/26/25 20:00 08/25/25 19:59 08/09/25 20:11 1 EACH Lidocaine (Lidoderm Patch 5%) 1 patch DAILY TP 07/28/25 09:00 08/27/25 08:59 08/10/25 09:34 1 PATCH Lidocaine HCl/Al Hydroxide/Mg Hydroxide/ Dicyclomine HCl 20ML OR AD ONCE PO 08/06/25 16:30 08/07/25 16:29 DC 08/06/25 16:45 20 ML Metoclopramide HCl (regLAN 10MG IV) 5 mg BID IVP 08/04/25 21:00 09/03/25 20:59 08/10/25 09:33 5 MG Metronidazole/ Sodium Chloride (flaGYL) 500 mg Q8H IV 07/21/25 14:00 07/21/25 13:40 DC Norepinephrine 250 ml @ 0 mls/hr PROTOCOL IV 07/20/25 23:30 08/03/25 08:27 DC 07/21/25 10:56 18.45 MLS/HR Pantoprazole Sodium (PROTonix 40MG INJ) 40 mg BID IV 07/26/25 21:00 08/20/25 08:59 08/10/25 09:34 40 MG Pantoprazole Sodium (PROTonix 40MG INJ) 40 mg BID IVP 08/05/25 21:00 08/06/25 08:39 DC 08/05/25 20:25 40 MG Pantoprazole Sodium (PROTonix 40MG INJ) 40 mg DAILY IV 07/21/25 09:00 07/26/25 09:31 DC 07/26/25 08:55 40 MG Pharmacy Profile Note (Pharmacy Communication) 1 each ONCE MISC 07/21/25 15:30 07/21/25 15:16 DC Pharmacy Profile Note (Pharmacy Communication) 1 each ONCE MISC 08/06/25 16:00 08/07/25 07:07 DC Piperacillin Sod/ Tazobactam Sod 50 ml @ 200 mls/hr ONCE STAT IVPB 07/20/25 19:15 07/20/25 19:29 DC 07/20/25 20:32 200 MLS/HR Piperacillin Sod/ Tazobactam Sod (Zosyn 3.375gm+NS 50ml) 3.375 gm Q12H IV 07/21/25 00:00 07/31/25 00:00 DC 07/30/25 23:55 3.375 GM Piperacillin Sod/ Tazobactam Sod (Zosyn 3.375gm+NS 50ml) 3.375 gm Q8H IVPB 07/31/25 11:30 08/10/25 11:29 DC 08/10/25 04:05 3.375 GM Piperacillin Sod/ Tazobactam Sod (Zosyn 3.375gm+NS 50ml) 3.375 gm Q8H IVPB 08/10/25 13:00 08/20/25 12:59 08/10/25 14:44 3.375 GM Psyllium Hydrophilic Mucilloid (Metamucil) 1 tbs BID PO 07/26/25 21:00 08/25/25 20:59 08/10/25 09:33 1 TBS Simethicone (Mylicon) 80 mg Q6H6 PO 07/27/25 12:00 08/26/25 11:59 08/10/25 12:19 80 MG Sodium Bicarbonate 150 meq/Sodium Chloride 1,150 ml @ 0 mls/hr Q0M IVP 07/21/25 14:00 07/26/25 09:31 DC Sodium Chloride (NS 50ml) 50 ml AD IV 07/31/25 11:30 07/31/25 11:12 DC Sodium Chloride (Normal Saline Flush) 10 ml Q8H IJ 08/09/25 11:00 09/08/25 10:59 Spironolactone (Aldactone 25mg) 25 mg BID PO 07/25/25 21:00 07/26/25 09:01 DC 07/26/25 08:56 25 MG Sucralfate (Carafate) 1 gm ACHS PO 07/29/25 21:00 08/28/25 20:59 08/10/25 12:19 1 GM Thiamine HCl (Vitamin B-1) 100 mg DAILY IVP 07/22/25 21:00 08/21/25 20:59 08/10/25 09:33 100 MG Thiamine HCl 100 mg/Sodium Chloride 50 ml @ 100 mls/hr Q24H IM 07/21/25 15:30 07/21/25 16:25 DC Vancomycin HCl (Vancomycin 1g/ 250ml Kit) 1 gm ONCE STAT IV 07/20/25 21:23 07/20/25 21:26 DC 07/20/25 22:06 1 GM Vasopressin 20 units/Sodium Chloride 100 ml @ 0 mls/hr PROTOCOL IV 07/21/25 00:30 08/03/25 08:27 DC 07/21/25 00:10 9 MLS/HR Physical Examination: GENERAL: [No acute distress, female, comfortably resting in bed] HEAD: [Normocephalic.] EYES: [Nonicteric sclera.] ENT: [Hearing grossly intact.] NECK: [Supple.] LUNGS: [Clear breath sounds bilaterally.] HEART: [Normal rate and rhythm.] VASC: [Peripheral pulses +2 bilaterally.] ABD: [Bowel sounds normal, soft, tender left upper quadrant at percutaneous drain site, right upper quadrant cholecystostomy drain in place with bilious output, no guarding or rigidity, ostomy with healthy stoma and mild gas and watery output.] : [Not examined] EXT: [No edema.] SKIN: [No rashes or lesions noted.] NEURO: [Awake, alert, and oriented x3. No focal sensory or strength deficits noted.] Vital Signs (last 8hr) Date Time Temp Pulse Resp B/P (MAP) Pulse Ox O2 Delivery O2 Flow Rate FiO2 08/10/25 12:00 97.3 73 18 98/61 93 Room Air 08/10/25 08:00 Room Air* 0 21 08/10/25 08:00 97.9 86 17 99/62 93 Room Air Laboratory: [ ] Hematology Labs: Test 08/10/25 05:03 08/09/25 03:33 Range/Units White Blood Count 5.6 4.8-10.8 K/uL Red Blood Count 2.98 L 4.00-5.50 MIL/uL Hemoglobin 8.8 L 12.0-16.0 g/dL Hematocrit 27.3 L 36-48 % Mean Corpuscular Volume 91.6 79-99 fL Mean Corpuscular Hemoglobin 29.5 27.0-33.0 pg Mean Corpuscular Hemoglobin Concent 32.2 32.0-36.0 g/dL Red Cell Distribution Width 17.5 H 11.0-15.5 % Platelet Count 170 130-400 K/uL Mean Platelet Volume 9.9 7.5-10.5 fL Nucleated Red Blood Cells 0.0 0.0-0.19 % Immature Granulocyte % (Auto) 1.6 H 0-1 % Neutrophils (%) (Auto) 64.0 40.0-77.0 % Lymphocytes (%) (Auto) 14.4 L 21.0-51.0 % Monocytes (%) (Auto) 13.5 H 3.0-13.0 % Eosinophils (%) (Auto) 5.8 0.0-8.0 % Basophils (%) (Auto) 0.7 0.0-5.0 % Neutrophils # (Auto) 2.8 1.8-7.7 K/uL Lymphocytes # (Auto) 0.6 L 1.0-4.8 K/uL Monocytes # (Auto) 0.6 0.1-1.0 K/uL Eosinophils # (Auto) 0.25 0.00-0.70 K/uL Basophils # (Auto) 0.03 0.00-0.20 K/uL Absolute Immature Granulocyte (auto 0.07 0-1 K/uL Chemistry Labs: Test 08/10/25 11:32 08/10/25 05:03 Range/Units Whole Blood Glucose 161 H 70-110 MG/DL Sodium Level 134 L 136-145 mmol/L Potassium Level 4.3 3.5-5.1 mmol/L Chloride Level 103 101-111 mmol/L Carbon Dioxide Level 21 21-32 mmol/L Blood Urea Nitrogen 16 7-18 mg/dL Creatinine 0.5 0.5-1.0 mg/dL Glomerular Filtration Rate Calc 109 >90 mL/min Random Glucose 156 H 70-105 mg/dL Total Calcium 8.8 8.5-10.1 mg/dL Phosphorus Level 2.9 2.5-4.9 mg/dL Magnesium Level 2.10 1.80-2.40 mg/dL Total Bilirubin 0.5 0.2-1.0 mg/dL Aspartate Amino Transf (AST/SGOT) 32 10-37 U/L Alanine Aminotransferase (ALT/SGPT) 15 12-78 U/L Alkaline Phosphatase 120 50-136 U/L Total Protein 6.9 6.0-8.3 g/dL Albumin 2.5 L 3.5-5.0 g/dL Coagulation Labs: Test 08/09/25 07:42 Range/Units Prothrombin Time 13.8 H 9.6-11.6 SEC Prothromb Time International Ratio 1.34 H 0.85-1.15 Activated Partial Thromboplast Time 32.9 26.3-35.5 SEC Diagnostics / Radiology: [Copy/Paste Echos/Imaging Report here] Impression and Plan: [55-year-old female, postop diagnostic laparoscopy, abdominal washout, drain placement and diverting loop ileostomy creation by Dr. Gann on 07/21/[address] percutaneous drain to left upper quadrant yesterday, had about 25 cc sanguinous output Right upper quadrant cholecystostomy drain was also irrigated by IR and has had about 30 cc bilious output Patient's continues complaining of abdominal bloating after eating/drinking liquid diet Ileostomy producing gas and watery output Continue on TPN Continue on IV fluids and IV antibiotics Repeat labs in a.m. From surgical standpoint, no emergent surgical intervention at this time Surgical team will continue to follow Dr. Gann updated on patient's status Surgical case has been discussed with my supervising physician Plan was formulated and agreed upon We appreciate the hospitalist team for allowing us to participate in this patient's care Greater than 45 minutes spent examining patient, reviewing chart and working on documentation Time spent reviewing chart, evaluating patient and dictating plan of care greater than 45 minutes ATTESTATION BY PHYSICIAN I have seen and examined the patient. I reviewed the documentation, medical decision making, and treatment plan as noted by the mid-level provider above. I agree with the findings and plan of care. MD LEANA ISRAEL LETICIA A [facility] Aug 10, 2025 15:56
--- NOTE | 2025-08-10 17:54 | PN ---
INFECTIOUS DISEASE PROGRESS NOTE Date of Service: Aug 10, 2025 SUBJECTIVE: Patient is awake, alert and oriented x 3. Patient is s/p CT-guided drainage catheter placement to the Perisplenic abscess day # 1. No fever, temperature is 97.3. Patient experiencing discomfort from all the tubes on her abdomen. She has a CHRIS drain on the left side with no output. The left Perisplenic abscess percutaneous drainage is draining small amount of bloody output. The right cholecystostomy tube is draining small amount of clear fluid. The right ileostomy is draining large amount of greenish colored output. Will continue on Zosyn and fluconazole and follow up on the drainage culture results. PHYSICAL EXAM EYES: Anicteric. Pupils equal and reactive. HENT: No oral thrush seen, moist Oral mucosa. NECK: Supple, no JVD or thyromegaly. LUNGS: Good air entry. No rales, no rhonchi. CARDIOVASCULAR: S1, S2 regular. No murmur heard. ABDOMEN: Soft, non tender, bowel sounds present, no organomegaly. Left CHRIS drain. Left Perisplenic abscess percutaneous drainage catheter. Right ileostomy. Right cholecystostomy tube. CENTRAL NERVOUS SYSTEM: Awake, alert, oriented x 3. SKIN: No rashes, no swelling. LYMPHATICS: No peripheral lymphadenopathy. MUSCULOSKELETAL: No joint swelling, erythema or tenderness. EXTREMITIES: No cyanosis or clubbing. BACK: No deformity, no pressure ulcer. GENITOURINARY: No dysuria or hematuria. Vital Sign (Last 12 Hours) 08/10/25 08/10/25 08/10/25 08:00 08:00 12:00 Temp 97.9 97.3 Pulse 86 73 Resp 17 18 B/P (MAP) 99/62 98/61 Pulse Ox 93 93 O2 Delivery Room Air Room Air* Room Air O2 Flow Rate 0 FiO2 21 Intake & Output (last 24hrs) 08/09/25 08/09/25 08/10/25 15:00 23:00 07:00 Intake Total 0 ml 120 ml 1160.0 ml Output Total 3355 ml Balance 0 ml 120 ml -2195.0 ml LABS: Laboratory: Test 08/10/25 16:55 08/10/25 05:03 08/10/25 02:15 08/09/25 07:42 Range/Units Whole Blood Glucose 148 H 70-110 MG/DL White Blood Count 5.6 4.8-10.8 K/uL Red Blood Count 2.98 L 4.00-5.50 MIL/uL Hemoglobin 8.8 L 12.0-16.0 g/dL Hematocrit 27.3 L 36-48 % Mean Corpuscular Volume 91.6 79-99 fL Mean Corpuscular Hemoglobin 29.5 27.0-33.0 pg Mean Corpuscular Hemoglobin Concent 32.2 32.0-36.0 g/dL Red Cell Distribution Width 17.5 H 11.0-15.5 % Platelet Count 170 130-400 K/uL Mean Platelet Volume 9.9 7.5-10.5 fL Nucleated Red Blood Cells 0.0 0.0-0.19 % Sodium Level 134 L 136-145 mmol/L Potassium Level 4.3 3.5-5.1 mmol/L Chloride Level 103 101-111 mmol/L Carbon Dioxide Level 21 21-32 mmol/L Blood Urea Nitrogen 16 7-18 mg/dL Creatinine 0.5 0.5-1.0 mg/dL Glomerular Filtration Rate Calc 109 >90 mL/min Random Glucose 156 H 70-105 mg/dL Total Calcium 8.8 8.5-10.1 mg/dL Phosphorus Level 2.9 2.5-4.9 mg/dL Magnesium Level 2.10 1.80-2.40 mg/dL Total Bilirubin 0.5 0.2-1.0 mg/dL Aspartate Amino Transf (AST/SGOT) 32 10-37 U/L Alanine Aminotransferase (ALT/SGPT) 15 12-78 U/L Alkaline Phosphatase 120 50-136 U/L Total Protein 6.9 6.0-8.3 g/dL Albumin 2.5 L 3.5-5.0 g/dL Urine Color LIGHT-YELLOW YELLOW Urine Appearance CLEAR CLEAR Urine pH 6.0 5.0-8.0 Urine Specific [place] 1.018 1.001-1.031 Urine Protein NEGATIVE NEGATIVE mg/dL Urine Glucose (UA) NEGATIVE NEGATIVE mg/dL Urine Ketones NEGATIVE NEGATIVE mg/dL Urine Occult Blood NEGATIVE NEGATIVE Urine Nitrate NEGATIVE NEGATIVE Urine Bilirubin NEGATIVE NEGATIVE mg/dL Urine Urobilinogen 0.2 0.2-1.0 mg/dL Urine Leukocyte Esterase NEGATIVE NEGATIVE Regino/uL Prothrombin Time 13.8 H 9.6-11.6 SEC Prothromb Time International Ratio 1.34 H 0.85-1.15 Activated Partial Thromboplast Time 32.9 26.3-35.5 SEC Test 08/09/25 03:33 Range/Units Immature Granulocyte % (Auto) 1.6 H 0-1 % Neutrophils (%) (Auto) 64.0 40.0-77.0 % Lymphocytes (%) (Auto) 14.4 L 21.0-51.0 % Monocytes (%) (Auto) 13.5 H 3.0-13.0 % Eosinophils (%) (Auto) 5.8 0.0-8.0 % Basophils (%) (Auto) 0.7 0.0-5.0 % Neutrophils # (Auto) 2.8 1.8-7.7 K/uL Lymphocytes # (Auto) 0.6 L 1.0-4.8 K/uL Monocytes # (Auto) 0.6 0.1-1.0 K/uL Eosinophils # (Auto) 0.25 0.00-0.70 K/uL Basophils # (Auto) 0.03 0.00-0.20 K/uL Absolute Immature Granulocyte (auto 0.07 0-1 K/uL ASSESSMENT: Acute cholecystitis, s/p cholecystostomy tube placement on 08/02/2025. Concern for cholecystostomy tube dislodgement status post cholecystogram with f indings of multiple gallstones on 08/09/2025. Perisplenic abscess, s/p CT-guided drainage placement. Persistent abdominal pain, s/p EGD with findings acute gastritis.. Hypoxic respiratory failure requiring oxygen support, resolved. Septic shock. Generalized peritonitis with ESBL and E coli infection. Infection with multidrug resistant organism. Hypoalbuminemia. Suspected bowel perforation, s/p diagnostic laparoscopy, abdominal washout, ileostomy creation and CHRIS drain placement on 07/21/2025. Diabetes mellitus. Recent colovesical fistula repair with sigmoid colon resection and anastomosis on 07/09/2025 PLAN: Continue Zosyn. Continue fluconazole. Continue pain management. Avoid nephrotoxic medications. Continue GI prophylaxis. Continue antidiabetics. Continue nutritional support, on clear liquids and PPN. We will follow up on the perisplenic abscess drainage cultures. This case was reviewed and discussed with my supervising physician Dr. Roger and the above assessment and plan was formulated and agreed upon. ATTESTATION BY PHYSICIAN I have seen and examined the patient. I reviewed the documentation, medical decision making, and treatment plan as noted by the mid-level provider above. I agree with the findings and plan of care. AMIE ROGER MD, [facility] Aug 10, 2025 17:54
--- NOTE | 2025-08-10 18:14 | NUR ---
PATIENT REFUSED DINNER SONNY. AWARE.
[2025-08-11 02:11] LABS: NUCLEATED RED BLOOD CELLS 0.0 % (0.0-0.19); PLATELET COUNT (AUTO) 182.0 K/uL (130-400); RED BLOOD CELL COUNT(AUTO) 3.0 MIL/uL (4.00-5.50); RED CELL DISTRIBUTION WIDTH 17.4 % (11.0-15.5); WHITE BLOOD COUNT (AUTO) 5.1 K/uL (4.8-10.8)
[2025-08-11 02:21] LABS: INR 1.34 (0.85-1.15)
[2025-08-11 02:24] LABS: ASPARTATE AMINOTRANSFERASE 34.0 U/L (10-37); CREATININE 0.6 mg/dL (0.5-1.0); GLOMERULAR FILTR. RATE CALC 105.0 mL/min (>90); GLUCOSE,RANDOM 112.0 mg/dL (70-105); PHOSPHORUS 2.7 mg/dL (2.5-4.9); SODIUM SERUM 135.0 mmol/L (136-145); TOTAL PROTEIN, SERUM 7.2 g/dL (6.0-8.3); UREA NITROGEN, BLOOD 16.0 mg/dL (7-18)
--- NOTE | 2025-08-11 02:32 | NUR ---
nurse note patient alert and oriented times 3. plan of care discussed with her and she verbalized understanding. patient has been asking for her dilaudid and narco tonight. she claims that she "always" has abdominal pain. She refuses to walk and to be weighed tonight. She does not want a bath tonight either. Her midline started leaking, I flushed it and reinforced the dressing, and put another dressing and it still leaked. I called erna molina np and he ordered for the [facility] picc line nurse to check the line or place a new one. I let housekeeper cleaning cooking, Mehran, know and faxed him the order. The patient signed the consent. She has slept about 3 hours tonight. Ileostomy care done to her ileostomy stoma and bag. I also flushed the cholecystostomy tube and the accordian drain with 10 ml of normal saline flush. Her cholecystostomy tube is putting out clear/yellow fluids, the chacorta drain has 0 ml output, and the accordion drain has sanguienous fluid. I have drained her ileostomy bag every 3-4 hours. Call light within reach, bed alarm on, 2 side rails up. will continue to monitor patient.
[2025-08-11 03:37] VITALS: BP 99/51; PULSE 91; RESP 18; TEMP 98.2
--- NOTE | 2025-08-11 07:26 | HMCIMG ---
EXAM: CR Chest, single view. CLINICAL HISTORY: PICC line placement. COMPARISON: Prior chest radiograph dated July 22, 2025 FINDINGS: Left-sided PICC line placement with tip in the region of the superior vena cava. Mild cardiomegaly. An ill-defined soft tissue in the superior mediastinum possibility of aortic arch aneurysm, is not excluded. The lungs show no infiltrate or other acute findings. No pleural effusion or pneumothorax. No acute osseous abnormality. IMPRESSION: Left-sided PICC line placement with tip in the region of the superior vena cava. Mild cardiomegaly. An ill-defined soft tissue in the superior mediastinum possibility of aortic arch aneurysm, is not excluded. May consider further evaluation with contrast-enhanced CT thorax. Compared to the prior study, there is no interval resolution of the subsegmental atelectasis in the right lower lobe, interval removal of the nasogastric tube, and interval placement of the left-sided PICC catheter. /Braden
[2025-08-11 08:00] VITALS: BP 88/62; PULSE 78; RESP 20; TEMP 97.8; O2SAT 96
--- NOTE | 2025-08-11 10:34 | PN ---
NEPHROLOGY PROGRESS NOTE Date/Time Patient Seen: Aug 11, 2025 SUBJECTIVE: This is a 55-year-old female with a past medical history of diabetes mellitus type 2, liver cirrhosis, esophageal varices. He presented to the emergency room with chief complain of abdominal pain. CT of the abdomen showed moderate small bowel enteritis with free air in the upper abdomen, suggesting perforated bowel versus post surgical changes. No obst ruction. S/p diagnostic laparoscopy, abdominal washout, drain placement and diverting loop ileostomy creation with CHRIS drain 10 Martiniquais on 07/21 S/P cholecystotomy tube on 08/02 S/P Cholecystogram showed cholecystotomy tube in satisfactory position with multiple large gallstones seen in the gallbladder lumen on 08/09 S/P successful CT guided drainage of left infrasplenic collection on 08/09 She has been started on clear liquid diet She was noted to have elevated BUN/creatinine We are consulted for renal failure Renal function and electrolytes are stable. She was seen in the medial floor, in no acute distress No family at the bedside REVIEW OF SYSTEMS: GENERAL: Positive for nausea NEUROLOGIC: Negative for any blurry vision, blind spots, double vision, facial asymmetry, dysphagia, dysarthria, hemiparesis, hemisensory deficits, vertigo, ataxia. HEENT: Negative for any head trauma, neck trauma, neck stiffness, photophobia, phonophobia, sinusitis, rhinitis. CARDIAC: Negative for any chest pain, dyspnea on exertion, paroxysmal nocturnal dyspnea, peripheral edema. PULMONARY: Negative for any shortness of breath, wheezing, COPD, or TB exposure. GASTROINTESTINAL: Negative for any abdominal pain, nausea, vomiting, bright red blood per rectum, melena. GENITOURINARY: Negative for any dysuria, hematuria, incontinence. INTEGUMENTARY: Negative for any rashes, cuts, insect bites. RHEUMATOLOGIC: Negative for any joint pains, photosensitive rashes, history of vasculitis or kidney problems. HEMATOLOGIC: Negative for any abnormal bruising, frequent infections or b leeding. Vital Signs (last 8hr) Date Time Temp Pulse Resp B/P (MAP) Pulse Ox O2 Delivery O2 Flow Rate FiO2 08/11/25 08:00 97.9 78 20 88/62 99 Room Air 08/11/25 08:00 96 Room Air* 0 21 08/11/25 03:37 98.2 91 18 99/51 96 Room Air 21 PHYSICAL EXAM: GENERAL: Alert and oriented x 3. No acute distress. Well-nourished. EYES: EOMI. Anicteric. HENT: Moist mucous membranes. No scleral icterus. No cervical lymphadenopathy. LUNGS: Clear to auscultation bilaterally. No accessory muscle use. CARDIOVASCULAR: Regular rate and rhythm. No murmur. No JVD. ABDOMEN: Soft, non-tender and non-distended. No palpable masses. EXTREMITIES: No edema. Non-tender SKIN: No rashes or lesions. Warm. NEUROLOGIC: No focal neurological deficits. CN II-XII grossly intact, but not individually tested. PSYCHIATRIC: Cooperative. Appropriate mood and affect. Current Medications Medications (Trade) Dose Ordered Sig/Gregory Route Start Time Stop Time Status Last Admin Dose Admin Albumin Human 100 ml @ 0 mls/hr ONCE IV 07/25/25 12:00 07/26/25 11:59 DC 07/25/25 13:43 100 MLS/HR Cyclobenzaprine HCl (Cyclobenzaprine HCl) 5 mg TID PO 07/25/25 14:00 07/26/25 14:00 DC 07/26/25 14:19 5 MG Fluconazole/ Sodium Chloride (DiFLUCan 200 MG/ NS 100 ML) 200 mg Q24H IVPB 07/21/25 21:00 08/20/25 20:59 07/25/25 20:47 200 MG Furosemide (LASix 20MG TAB) 20 mg DAILY PO 07/25/25 11:00 08/24/25 10:59 07/26/25 08:56 20 MG Insulin Human Regular (humuLIN R 100 UNIT/ML 3ML) INSULIN SLIDING SCAL... ACHS SQ 07/21/25 07:30 08/20/25 07:29 07/22/25 20:40 3 UNIT Lactated Ringer's 1,000 ml @ 75 mls/hr [id number] IV 07/21/25 00:00 07/21/25 13:17 DC 07/21/25 02:57 75 MLS/HR Lactated Ringer's 1,000 ml @ 75 mls/hr [id number] IV 07/21/25 13:30 07/24/25 11:09 DC 07/24/25 09:27 75 MLS/HR Lactobacillus Rhamnosus ([facility] [employer]) 1 each DAILY20 PO 07/26/25 20:00 08/25/25 19:59 Metronidazole/ Sodium Chloride (flaGYL) 500 mg Q8H IV 07/21/25 14:00 07/21/25 13:40 DC Norepinephrine 250 ml @ 0 mls/hr PROTOCOL IV 07/20/25 23:30 08/19/25 23:29 07/21/25 10:56 18.45 MLS/HR Pantoprazole Sodium (PROTonix 40MG INJ) 40 mg BID IV 07/26/25 21:00 08/20/25 08:59 Pantoprazole Sodium (PROTonix 40MG INJ) 40 mg DAILY IV 07/21/25 09:00 07/26/25 09:31 DC 07/26/25 08:55 40 MG Pharmacy Profile Note (Pharmacy Communication) 1 each ONCE MISC 07/21/25 15:30 07/21/25 15:16 DC Piperacillin Sod/ Tazobactam Sod 50 ml @ 200 mls/hr ONCE STAT IVPB 07/20/25 19:15 07/20/25 19:29 DC 07/20/25 20:32 200 MLS/HR Piperacillin Sod/ Tazobactam Sod (Zosyn 3.375gm+NS 50ml) 3.375 gm Q12H IV 07/21/25 00:00 07/31/25 00:00 07/26/25 12:10 3.375 GM Psyllium Hydrophilic Mucilloid (Metamucil) 1 tbs BID PO 07/26/25 21:00 08/25/25 20:59 Sodium Bicarbonate 150 meq/Sodium Chloride 1,150 ml @ 0 mls/hr Q0M IVP 07/21/25 14:00 07/26/25 09:31 DC Spironolactone (Aldactone 25mg) 25 mg BID PO 07/25/25 21:00 07/26/25 09:01 DC 07/26/25 08:56 25 MG Thiamine HCl (Vitamin B-1) 100 mg DAILY IVP 07/22/25 21:00 08/21/25 20:59 07/26/25 08:55 100 MG Thiamine HCl 100 mg/Sodium Chloride 50 ml @ 100 mls/hr Q24H IM 07/21/25 15:30 07/21/25 16:25 DC Vancomycin HCl (Vancomycin 1g/ 250ml Kit) 1 gm ONCE STAT IV 07/20/25 21:23 07/20/25 21:26 DC 07/20/25 22:06 1 GM Vasopressin 20 units/Sodium Chloride 100 ml @ 0 mls/hr PROTOCOL IV 07/21/25 00:30 08/20/25 00:29 07/21/25 00:10 9 MLS/HR LABORATORY: [ ] Hematology Labs: Test 08/11/25 02:06 Range/Units White Blood Count 5.1 4.8-10.8 K/uL Red Blood Count 3.00 L 4.00-5.50 MIL/uL Hemoglobin 8.8 L 12.0-16.0 g/dL Hematocrit 27.4 L 36-48 % Mean Corpuscular Volume 91.3 79-99 fL Mean Corpuscular Hemoglobin 29.3 27.0-33.0 pg Mean Corpuscular Hemoglobin Concent 32.1 32.0-36.0 g/dL Red Cell Distribution Width 17.4 H 11.0-15.5 % Platelet Count 182 130-400 K/uL Mean Platelet Volume 10.0 7.5-10.5 fL Nucleated Red Blood Cells 0.0 0.0-0.19 % Chemistry Labs: Test 08/11/25 05:21 08/11/25 02:06 Range/Units Whole Blood Glucose 100 70-110 MG/DL Sodium Level 135 L 136-145 mmol/L Potassium Level 4.4 3.5-5.1 mmol/L Chloride Level 104 101-111 mmol/L Carbon Dioxide Level 22 21-32 mmol/L Blood Urea Nitrogen 16 7-18 mg/dL Creatinine 0.6 0.5-1.0 mg/dL Glomerular Filtration Rate Calc 105 >90 mL/min Random Glucose 112 H 70-105 mg/dL Total Calcium 8.6 8.5-10.1 mg/dL Phosphorus Level 2.7 2.5-4.9 mg/dL Magnesium Level 1.90 1.80-2.40 mg/dL Total Bilirubin 0.5 0.2-1.0 mg/dL Aspartate Amino Transf (AST/SGOT) 34 10-37 U/L Alanine Aminotransferase (ALT/SGPT) 14 12-78 U/L Alkaline Phosphatase 121 50-136 U/L Total Protein 7.2 6.0-8.3 g/dL Albumin 2.5 L 3.5-5.0 g/dL Coagulation Labs: Test 08/11/25 02:06 Range/Units Prothrombin Time 13.8 H 9.6-11.6 SEC Prothromb Time International Ratio 1.34 H 0.85-1.15 Activated Partial Thromboplast Time 32.2 26.3-35.5 SEC DIAGNOSTICS / RADIOLOGY: [facility] [address] [place] [address] IMAGING REPORT Signed PATIENT: DALLAS BUCHANAN MR#: [id number] : 1970 SEX: F AGE: 55 LOCATION: [facility] ORDER 1 STATUS: ADM IN REPORT#: [id number] SERVICE 0 REASON: picc line placement ORDERING PHYSICIAN: AYAKA BARR MD PROCEDURE: CXR1VW - CHEST 1VW EXAM: CR Chest, single view. CLINICAL HISTORY: PICC line placement. COMPARISON: Prior chest radiograph dated July 22, 2025 FINDINGS: Left-sided PICC line placement with tip in the region of the superior vena cava. Mild cardiomegaly. An ill-defined soft tissue in the superior mediastinum possibility of aortic arch aneurysm, is not excluded. The lungs show no infiltrate or other acute findings. No pleural effusion or pneumothorax. No acute osseous abnormality. IMPRESSION: Left-sided PICC line placement with tip in the region of the superior vena cava. Mild cardiomegaly. An ill-defined soft tissue in the superior mediastinum possibility of aortic arch aneurysm, is not excluded. May consider further evaluation with contrast-enhanced CT thorax. Compared to the prior study, there is no interval resolution of the subsegmental atelectasis in the right lower lobe, interval removal of the nasogastric tube, and interval placement of the left-sided PICC catheter. /Golden DICTATED BY: ELDON MILLER Jr., MD DATE: 08/11/25824 ELECTRONICALLY SIGNED BY: ELDON MILLER Jr., MD DATE: 08/11/25824 PATIENT: DALLAS BUCHANAN MR#: [id number] : 1970 SEX: F AGE: 55 LOCATION: [facility] ORDER 1544 STATUS: ADM IN REPORT#: [id number] SERVICE 0800 REASON: Aspiration of perisplenic fluid noted on CT ORDERING PHYSICIAN: BENEDICTO OBRIEN Jr. PROCEDURE: GUID NDL - CT GUIDE NDL PLCMT IR CT GUIDE NDL PLCMT IR HISTORY: Aspiration of perisplenic fluid noted on CT infrasplenic fluid collection drainage . TECHNIQUE: Images from prior studies reviewed. Informed consent was obtained after explaining the procedure and potential complications to the patient. Time out performed. The patient was placed prone on the CT couch and images of the abdomen obtained. The left flank draped in sterile fashion. Local anesthesia was applied and under CT-fluoroscopy guidance, a 19-gauge needle introducer was advanced through the abdominal wall and into a left infrasplenic fluid collection in the left hemiabdomen. Then, over a wire the tract was dilated to accommodate a 8 Martiniquais APDL catheter, which was left coiled within the collection. Completion images reveal no hemorrhage. Patient tolerated the procedure well and was discharged from the department in good condition. Approximately 10 cc of fluid mL of fluid sent for cultures. Conscious sedation provided by a registered nurse who monitored the patient's vital signs throughout and after the procedure. MEDICATIONS: Fentanyl 100 mcg IV and Versed 2 mg IV IMPRESSION: Successful CT guided drainage of left infrasplenic collection. DICTATED BY: GREER FIORE MD DATE: 08/10/25927 ELECTRONICALLY SIGNED BY: GREER FIORE MD DATE: 08/10/25937 PATIENT: DALLAS BUCHANAN MR#: [id number] : 1970 SEX: F AGE: 55 LOCATION: [facility] ORDER 36 STATUS: ADM IN REPORT#: [id number] SERVICE 1336 REASON: epigastric pain. not tolerating meals. ORDERING PHYSICIAN: SUSAN JHAVERI MD PROCEDURE: ABD PEL W - CT ABDOMEN/PELVIS W/CONTRAST EXAM: CT Abdomen and Pelvis with IV contrast CLINICAL HISTORY: epigastric pain. not tolerating meals. TECHNIQUE: Axial computed tomography images of the abdomen and pelvis with intravenous contrast. CONTRAST: with intravenous contrast. COMPARISON: Compared with the previous CT dated 07/20 and USG dated 07/29 FINDINGS: LUNG BASES: Grossly stable atelectasis and scarring at the lung bases. LIVER: Unremarkable. GALLBLADDER AND BILE DUCTS: The gallbladder is decompressed with a cholecystostomy tube in situ. PANCREAS: Unremarkable. SPLEEN: The spleen is enlarged in size, measuring 15.2 cm. ADRENAL GLANDS: Unremarkable. KIDNEYS, URETERS, AND BLADDER: No hydronephrosis or nephrolithiasis. No ureteral calculi. The urinary bladder is unremarkable. STOMACH AND BOWEL: The ileostomy site appears unremarkable. Interval resolution of previously seen moderate small bowel enteritis. No obstruction. APPENDIX: No CT evidence for appendicitis. PERITONEUM: Near complete interval resolution of previously seen moderate ascites in the abdomen and pelvis. Collection in the perisplenic and infra-splenic region measuring 6.0 x 6.1 x 8.9 cm. Interval resolution of previously seen pneumoperitoneum. Diffuse mesenteric fat stranding, likely postoperative changes. LYMPH NODES: No lymphadenopathy. REPRODUCTIVE: Unremarkable as visualized. VASCULATURE: No aortic aneurysm. ABDOMINAL WALL AND SOFT TISSUES: Interval resolution of previously seen subcutaneous emphysema in the anterior abdominal wall and left lateral chest wall. Abdominal drain in situ with tip in the pelvis. BONES: No fracture or suspicious osseous abnormality. IMPRESSION: 1. Perisplenic and infrasplenic fluid collection measuring 6.0 x 6.1 x 8.9 cm. 2. Splenomegaly, with spleen measuring 15.2 cm. 3. Cholecystostomy tube in situ with decompressed gallbladder. 4. Abdominal drain in situ with tip in the pelvis. 5. No acute findings in the remainder of the abdomen and pelvis. /Golden DICTATED BY: ELDON MILLER Jr., MD DATE: 08/04/251636 ELECTRONICALLY SIGNED BY: ELDON MILLER Jr., MD DATE: 08/04/251636 PATIENT: DALLAS BUCHANAN MR#: [id number] : 1970 SEX: F AGE: 55 LOCATION: 4[facility] ORDER 1524 STATUS: ADM IN REPORT#: [id number] SERVICE 1523 REASON: cholecystitis ORDERING PHYSICIAN: BENEDICTO OBRIEN Jr. PROCEDURE: HIDA PHARM - NM HIDA/HEPATOBILI W/ PHARMACO EXAM: HIDA scan. INDICATION: Severe RUQ Pain to rule out cholecystitis. REFERENCE EXAMINATION: USG July 29, 2025. TECHNIQUE: Sequential images of the abdomen were obtained in the anterior projection after IV administration of 6.0 mCi of Tc99m Mebrofenin. FINDINGS: Tracer activity throughout the liver is homogeneous without focal defects. There is prompt excretion of the pharmaceutical into the bile ducts and into the small bowel, without evidence of obstruction. There is no visualization of the gallbladder at the conclusion of the examination. IMPRESSION: Scintigraphic findings are compatible with acute cholecystitis. /Golden DICTATED BY: ELDON MILLER Jr., MD DATE: 08/01/25 1011 ELECTRONICALLY SIGNED BY: ELDON MILLER Jr., MD DATE: 08/01/25 1011 PATIENT: DALLAS BUCHANAN MR#: [id number] : 1970 SEX: F AGE: 55 LOCATION: 4AH ORDER 10 STATUS: ADM IN REPORT#: [id number] SERVICE 191 REASON: ABD PAIN ORDERING PHYSICIAN: NIKKI MUNOZ NP PROCEDURE: ABD 1VW - ABD 1VW EXAM: CR Abdomen, 1 view. CLINICAL HISTORY: Pain. COMPARISON: None provided. FINDINGS: Dilated small bowel loops are seen in mid abdomen. There is a density in the pelvis which may represent a send drainage catheter. No free air is evident. No abnormal calcification. No aggressive appearing osseous lesion. IMPRESSION: Dilated small bowel loops are seen in mid abdomen. Density in the pelvis which may represent a send drainage catheter. /[facility] DICTATED BY: TOBI LEAHY MD DATE: 07/29/25 1033 ELECTRONICALLY SIGNED BY: TOBI LEAHY MD DATE: 07/29/25 103 PATIENT: DALLAS BUCHANAN MR#: [id number] : 1970 SEX: F AGE: 55 LOCATION: 4AH ORDER 1519 STATUS: ADM IN REPORT#: [id number] SERVICE 151 REASON: Liver cirrhosis ORDERING PHYSICIAN: LISET DOUGLAS MD PROCEDURE: ABDOMEN - US ABDOMINAL COMPLETE EXAM: US Abdomen complete CLINICAL HISTORY: Liver cirrhosis TECHNIQUE: Real-time ultrasound of the abdomen (complete) with image documentation. COMPARISON: None provided. FINDINGS: LIVER: Liver measures 12.3 cm with a heterogeneous coarse echotexture. GALLBLADDER: Gallbladder contains stones and sludge. Gallbladder is distended. COMMON BILE DUCT: No dilation. PANCREAS: Pancreas not well-visualized due to overlying bowel gas KIDNEYS: Normal renal contours. No renal mass or calculus. No hydronephrosis. SPLEEN: Normal in size and echogenicity. No mass identified. AORTA: No aneurysm. IVC: Unremarkable as visualized. MISCELLANEOUS: Small amount of abdominal ascites. IMPRESSION: 1. Cirrhotic-appearing liver. 2. Cholelithiasis and biliary sludge with gallbladder distension. 3. Small volume ascites. /[facility] DICTATED BY: CYNTHIA JULIAN MD DATE: 07/29/25 105 ELECTRONICALLY SIGNED BY: CYNTHIA JULIAN MD DATE: 07/29/25 105 PATIENT: DALLAS BUCHANAN MR#: [id number] : 1970 SEX: F AGE: 55 LOCATION: 2BH ORDER 1108 STATUS: ADM IN REPORT#: [id number] SERVICE 1106 REASON: sob ORDERING PHYSICIAN: PREET BOSTON MD PROCEDURE: CXR1VW - CHEST 1VW CHEST 1VW REASON: sob COMPARISON: Study from 07/21/2025 is available. FINDINGS: Single view of the chest was obtained. Lungs are clear. Heart size is normal. There is no pulmonary vascular congestion. There is a right-sided PIC catheter with tip in superior vena cava. There is a nasogastric tube with the tip in the fundus of the stomach. Mediastinum and bony thorax appear unremarkable. IMPRESSION: 1. No acute cardiopulmonary process 2. The support lines are in satisfactory position.. DICTATED BY: GREER FIORE MD DATE: 07/22/251349 ELECTRONICALLY SIGNED BY: GREER FIORE MD DATE: 07/22/251353 PATIENT: DALLAS BUCHANAN MR#: [id number] : 1970 SEX: F AGE: 55 LOCATION: 2BH ORDER STATUS: ADM IN REPORT#: [id number] SERVICE REASON: PICC LINE ORDERING PHYSICIAN: HEATHER LEACH APRN PROCEDURE: CXR1VW - CHEST 1VW EXAM: CR Chest, single view. CLINICAL HISTORY: PICC line COMPARISON: Prior same day chest radiograph. FINDINGS: Right-sided PICC catheter with tip in the cavoatrial junction. Subsegmental atelectasis in the right lower lobe. No evidence of pleural effusion or pneumothorax. The cardiomediastinal silhouette is within normal limits. No acute osseous abnormality. IMPRESSION: Right-sided PICC catheter with tip in the cavoatrial junction. Subsegmental atelectasis in the right lower lobe. No evidence of pleural effusion or pneumothorax. Compared to the prior study, there is interval placement of the right-sided PICC line and interval resolution of the subsegmental atelectasis in the left lower lobe. /Golden DICTATED BY: ELDON MILLER Jr., MD DATE: 07/21/25816 ELECTRONICALLY SIGNED BY: ELDON MILLER Jr., MD DATE: 07/21/25816 PATIENT: DALLAS BUCHANAN MR#: [id number] : 1970 SEX: F AGE: 55 LOCATION: [facility] ORDER 14 STATUS: [facility] REPORT#: [id number] SERVICE 12 REASON: CHEST PAIN/COUGH ORDERING PHYSICIAN: ALHAJI SHINE NP PROCEDURE: CXR1VW - CHEST 1VW EXAM: XR Chest, 1 View. CLINICAL HISTORY: 55 year old female with chest pain and cough. COMPARISON: None provided. FINDINGS: LUNGS: The lungs demonstrate evidence of atelectasis. PLEURAL SPACES: A small right pleural effusion is present. HEART: The heart size is normal. BONES: No acute osseous abnormality. IMPRESSION: 1. Small right pleural effusion and right lung base atelectasis. /[facility] DICTATED BY: EDWIGE LEDESMA MD DATE: 07/20/252046 ELECTRONICALLY SIGNED BY: EDWIGE LEDESMA MD DATE: 07/20/252046 PATIENT: DALLAS BUCHANAN MR#: [id number] : 1970 SEX: F AGE: 55 LOCATION: [facility] ORDER 14 STATUS: REG ER REPORT#: [id number] SERVICE 12 REASON: Abdominal Pain ORDERING PHYSICIAN: ALHAJI SHINE NP PROCEDURE: ABD PEL W - CT ABDOMEN/PELVIS W/CONTRAST ADDENDUM REPORT ADDENDUM: Results were shared by telephone at 23:23 pm on 07-20-2025 and acknowledged by Pt nurse Ms. SHIN BOYKIN. /[facility] EXAM: CT Abdomen and Pelvis with Intravenous Contrast CLINICAL HISTORY: 55-year-old female with abdominal pain. TECHNIQUE: Axial computed tomography images of the abdomen and pelvis with intravenous contrast. Dose reduction technique was used including one or more of the following: automated exposure control, adjustment of mA and kV according to patient size, and/or iterative reconstruction. CONTRAST: Omnipaque 350, 75 mL COMPARISON: None provided. FINDINGS: LUNG BASES: Atelectasis and scarring at the lung bases. LIVER: Unremarkable. GALLBLADDER AND BILE DUCTS: Tiny gallstone seen. PANCREAS: Unremarkable. SPLEEN: Unremarkable. ADRENAL GLANDS: Unremarkable. KIDNEYS, URETERS, AND BLADDER: Dueñas catheter seen in the bladder lumen. No hydronephrosis or nephrolithiasis. No ureteral calculi. STOMACH AND BOWEL: Edema or loops of small bowel suggesting moderate small bowel enteritis. Free air in the upper abdomen is seen, suggesting perforated bowel. No obstruction. APPENDIX: No CT evidence for appendicitis. PERITONEUM: Moderate ascites in the abdomen and pelvis. No free air under the diaphragm. LYMPH NODES: No lymphadenopathy. REPRODUCTIVE: Unremarkable as visualized. VASCULATURE: No aortic aneurysm. ABDOMINAL WALL AND SOFT TISSUES: There is air in the subcutaneous soft tissue seen anteriorly, suggesting recent postsurgical changes; please correlate with surgical history. BONES: No fracture or suspicious osseous abnormality. IMPRESSION: 1. Moderate small bowel enteritis with free air in the upper abdomen, suggesting perforated bowel versus post surgical changes. No obstruction. 2. Moderate ascites in the abdomen and pelvis. 3. Air in the subcutaneous soft tissue anteriorly, suggesting recent postsurgical changes; please correlate with surgical history. /Golden DICTATED BY: EDWIGE LEDESMA MD DATE: 07/20/25 2337 ELECTRONICALLY SIGNED BY: DATE: EXAM: CT Abdomen and Pelvis with Intravenous Contrast CLINICAL HISTORY: 55-year-old female with abdominal pain. TECHNIQUE: Axial computed tomography images of the abdomen and pelvis with intravenous contrast. Dose reduction technique was used including one or more of the following: automated exposure control, adjustment of mA and kV according to patient size, and/or iterative reconstruction. CONTRAST: Omnipaque 350, 75 mL COMPARISON: None provided. FINDINGS: LUNG BASES: Atelectasis and scarring at the lung bases. LIVER: Unremarkable. GALLBLADDER AND BILE DUCTS: Tiny gallstone seen. PANCREAS: Unremarkable. SPLEEN: Unremarkable. ADRENAL GLANDS: Unremarkable. KIDNEYS, URETERS, AND BLADDER: Dueñas catheter seen in the bladder lumen. No hydronephrosis or nephrolithiasis. No ureteral calculi. STOMACH AND BOWEL: Edema or loops of small bowel suggesting moderate small bowel enteritis. Free air in the upper abdomen is seen, suggesting perforated bowel. No obstruction. APPENDIX: No CT evidence for appendicitis. PERITONEUM: Moderate ascites in the abdomen and pelvis. No free air under the diaphragm. LYMPH NODES: No lymphadenopathy. REPRODUCTIVE: Unremarkable as visualized. VASCULATURE: No aortic aneurysm. ABDOMINAL WALL AND SOFT TISSUES: There is air in the subcutaneous soft tissue seen anteriorly, suggesting recent postsurgical changes; please correlate with surgical history. BONES: No fracture or suspicious osseous abnormality. IMPRESSION: 1. Moderate small bowel enteritis with free air in the upper abdomen, suggesting perforated bowel versus post surgical changes. No obstruction. 2. Moderate ascites in the abdomen and pelvis. 3. Air in the subcutaneous soft tissue anteriorly, suggesting recent postsurgical changes; please correlate with surgical history. /Golden DICTATED BY: EDWIGE LEDESMA MD DATE: 07/20/252317 ELECTRONICALLY SIGNED BY: EDWIGE LEDESMA MD DATE: 07/20/252317 ASSESSMENT: Acute kidney injury Hyponatremia Bacterial peritonitis Perisplenic and infrasplenic fluid collection with splenomegaly Cholelithiasis 2 mm perforation of the colonic anastomosis Anastomosis leak Bilious peritonitis S/p Diagnostic laparoscopy, abdominal washout, drain placement and diverting loop ileostomy creation Atrophic vaginitis Anemia Diabetes Mellitus Type 2 Septic Shock Cirrhosis of liver Oesophageal Varices PLAN: Labs, diagnostic, radiologic exams reviewed and interpreted by myself and supervising physician. We have reviewed external records in detail Advance diet as per primary team Require close monitoring of renal function and electrolytes Order CBC, CMP, and electrolytes in am Continue with antibiotics as per ID BiPAP as necessary, for respiratory distress Monitor blood pressure adjust medication doses as needed Avoid hypotensive episodes May use Dilaudid 0.5 mg IV every 6 hours as needed for severe pain Monitor blood sugars Strict intake, output, and daily weight should be monitored Please renally adjust medications Avoid nephrotoxic and nonsteroidal drugs Avoid contrast if possible Will continue to monitor renal function, anemia, electrolytes Treatment plan discussed with patient Questions were answered We have discussed with the other team physicians in detail about the care plan We will continue to monitor the patient closely ATTESTATION BY PHYSICIAN I have seen and examined the patient. I reviewed the documentation, medical decision making, and treatment plan as noted by the mid-level provider above. I agree with the findings and plan of care. CIELO PORTILLO MD, ELIZABETH FNP Aug 11, 2025 10:34
[2025-08-11 12:00] VITALS: BP 96/60; PULSE 82; RESP 16; TEMP 97.5
--- NOTE | 2025-08-11 14:06 | PN ---
Status post sigmoid colectomy with leak. Status post loop ileostomy with drain placement. Status post cholecystostomy tube. Status post drainage of left upper quadrant fluid collection. Patient reporting the now she is tolerating to drink water without her stomach bloating or having horrible pain. Her pain is better controlled with the combination of the oral and IV pain medication alternated. Still has not been able to hold much food down. Ostomy still productive. Left lower quadrant drain with no output Left upper quadrant drain with sanguinous output about 40 cc Right upper quadrant drain with bilious output Incisions clean dry and intact Assessment and plan Patient with gastritis and esophagitis that is impeding her oral intake and needing TPN. Continue to encourage oral intake and continue with PPIs sucralfate and Reglan. Continue muscle relaxants, Toradol and narcotics for multimodal pain control. The patient is still not ready for discharge. Continue IV antibiotics. Pending cultures from drainage from left upper quadrant taken on Saturday Vitals/Labs Vital Signs Date Time Temp Pulse Resp B/P (MAP) Pulse Ox O2 Delivery O2 Flow Rate FiO2 08/11/25 12:00 97.5 82 16 96/60 97 Room Air 08/11/25 08:00 0 21 Laboratory Tests 08/11/25 02:06 Medications Current Medications Sodium Chloride 1,000 ml @ 0 mls/hr ONCE ONCE IV; Start 07/20/25 at 18:30; Stop 07/20/25 at 18:31; Status DC Piperacillin Sod/ Tazobactam Sod 50 ml @ 200 mls/hr ONCE STAT IVPB Last administered on 07/20/25at 20:32; Start 07/20/25 at 19:15; Stop 07/20/25 at 19:29; Status DC Sodium Chloride 2,109 ml @ 703 mls/hr ONCE ONCE IV Last administered on 07/20/25at 20:28; Start 07/20/25 at 19:30; Stop 07/20/25 at 22:29; Status DC Iohexol 75 ml STK-MED ONCE IV; Start 07/20/25 at 20:31; Stop 07/20/25 at 20:31; Status DC Vancomycin HCl 1 gm ONCE STAT IV Last administered on 07/20/25at 22:06; Start 07/20/25 at 21:23; Stop 07/20/25 at 21:26; Status DC Morphine Sulfate 4 mg ONCE ONCE IVP Last administered on 07/20/25at 23:15; Start 07/20/25 at 23:30; Stop 07/20/25 at 23:31; Status DC Ondansetron HCl 4 mg ONCE ONCE IVP Last administered on 07/20/25at 23:14; Start 07/20/25 at 23:30; Stop 07/20/25 at 23:31; Status DC Norepinephrine 250 ml @ 0 mls/hr PROTOCOL IV Last administered on 07/21/25at 10:56; Start 07/20/25 at 23:30; Stop 08/03/25 at 08:27; Status DC Piperacillin Sod/ Tazobactam Sod 3.375 gm Q12H IV Last administered on 07/30/25at 23:55; Start 07/21/25 at 00:00; Stop 07/31/25 at 00:00; Status DC Acetaminophen 650 mg Q6H PRN RC; Start 07/21/25 at 00:00; Stop 07/27/25 at 16:22; Status DC Pantoprazole Sodium 40 mg DAILY IV Last administered on 07/26/25at 08:55; Start 07/21/25 at 09:00; Stop 07/26/25 at 09:31; Status DC Ondansetron HCl 4 mg Q6H PRN IV; Start 07/21/25 at 00:00; Stop 07/21/25 at 13:18; Status DC Morphine Sulfate 2 mg Q4H PRN IVP Last administered on 07/21/25at 04:46; Start 07/21/25 at 00:30; Stop 07/21/25 at 13:18; Status DC Lactated Ringer's 1,000 ml @ 75 mls/hr [id number] IV Last administered on 07/21/25at 02:57; Start 07/21/25 at 00:00; Stop 07/21/25 at 13:17; Status DC Insulin Human Regular INSULIN SLIDING SCAL... ACHS SQ Last administered on 08/10/25at 20:41; Start 07/21/25 at 07:30; Stop 08/20/25 at 07:29 Vasopressin 20 units/Sodium Chloride 100 ml @ 0 mls/hr PROTOCOL IV Last administered on 07/21/25at 00:10; Start 07/21/25 at 00:30; Stop 08/03/25 at 08:27; Status DC Vasopressin 20 units STK-MED ONCE .ROUTE; Start 07/21/25 at 00:10; Stop 07/21/25 at 00:11; Status DC Magnesium Sulfate 50 ml @ 0 mls/hr PROTOCOL PRN IV Last administered on 08/01/25at 06:05; Start 07/21/25 at 07:00; Stop 08/20/25 at 06:59 Acetaminophen 100 ml @ As Directed STK-MED ONCE .ROUTE; Start 07/21/25 at 09:42; Stop 07/21/25 at 09:42; Status DC Famotidine 20 mg STK-MED ONCE IV; Start 07/21/25 at 09:42; Stop 07/21/25 at 09:42; Status DC Albumin Human 500 ml @ As Directed STK-MED ONCE IV; Start 07/21/25 at 09:45; Stop 07/21/25 at 09:45; Status DC Phenylephrine HCl 10 mg STK-MED ONCE IV; Start 07/21/25 at 09:48; Stop 07/21/25 at 09:48; Status DC Dexamethasone Sodium Phosphate 10 mg STK-MED ONCE .ROUTE; Start 07/21/25 at 09:52; Stop 07/21/25 at 09:52; Status DC Ondansetron HCl 4 mg STK-MED ONCE .ROUTE; Start 07/21/25 at 09:52; Stop 07/21/25 at 09:52; Status DC Lidocaine HCl 100 mg STK-MED ONCE .ROUTE; Start 07/21/25 at 09:52; Stop 07/21/25 at 09:52; Status DC Succinylcholine Chloride 200 mg STK-MED ONCE .ROUTE; Start 07/21/25 at 09:53; Stop 07/21/25 at 09:53; Status DC Glycopyrrolate 1 mg STK-MED ONCE .ROUTE; Start 07/21/25 at 09:53; Stop 07/21/25 at 09:53; Status DC Fentanyl Citrate 100 mcg STK-MED ONCE .ROUTE; Start 07/21/25 at 09:54; Stop 07/21/25 at 09:54; Status DC Propofol 200 mg STK-MED ONCE IV; Start 07/21/25 at 09:54; Stop 07/21/25 at 09:54; Status DC Neostigmine Methylsulfate 10 mg STK-MED ONCE IV; Start 07/21/25 at 09:54; Stop 07/21/25 at 09:54; Status DC Rocuronium [place] 50 mg STK-MED ONCE .ROUTE; Start 07/21/25 at 09:54; Stop 07/21/25 at 09:54; Status DC Ketamine HCl 50 mg STK-MED ONCE .ROUTE; Start 07/21/25 at 09:55; Stop 07/21/25 at 09:56; Status DC Epinephrine HCl 1 mg STK-MED ONCE .ROUTE; Start 07/21/25 at 10:03; Stop 07/21/25 at 10:03; Status DC Midazolam HCl 2 mg STK-MED ONCE .ROUTE; Start 07/21/25 at 10:05; Stop 07/21/25 at 10:05; Status DC Indocyanine Green 25 mg STK-MED ONCE IJ; Start 07/21/25 at 10:49; Stop 07/21/25 at 10:49; Status DC Ephedrine Sulfate 50 mg STK-MED ONCE .ROUTE; Start 07/21/25 at 11:17; Stop 07/21/25 at 11:17; Status DC Bupivacaine HCl 5 mg STK-MED ONCE .ROUTE Last administered on 07/21/25at 12:14; Start 07/21/25 at 11:49; Stop 07/21/25 at 11:49; Status DC Sodium Bicarbonate 200 ml @ As Directed STK-MED ONCE .ROUTE; Start 07/21/25 at 12:19; Stop 07/21/25 at 12:19; Status DC Fentanyl Citrate 100 mcg STK-MED ONCE .ROUTE; Start 07/21/25 at 12:23; Stop 07/21/25 at 12:23; Status DC Phytonadione 10 mg STK-MED ONCE .ROUTE; Start 07/21/25 at 13:05; Stop 07/21/25 at 13:05; Status DC Lactated Ringer's 1,000 ml @ 75 mls/hr [id number] IV Last administered on 07/24/25at 09:27; Start 07/21/25 at 13:30; Stop 07/24/25 at 11:09; Status DC Morphine Sulfate 4 mg Q3H PRN IV Last administered on 07/26/25at 10:51; Start 07/21/25 at 13:30; Stop 07/26/25 at 16:29; Status DC Ondansetron HCl 4 mg Q4H PRN IVP; Start 07/21/25 at 13:30; Stop 08/20/25 at 13:29 Fentanyl Citrate 100 mcg STK-MED ONCE .ROUTE; Start 07/21/25 at 13:26; Stop 07/21/25 at 13:26; Status DC Sodium Bicarbonate 150 meq/Sodium Chloride 1,150 ml @ 0 mls/hr Q0M IVP; Start 07/21/25 at 14:00; Stop 07/26/25 at 09:31; Status DC Sodium Bicarbonate 100 meq ONCE ONCE IV; Start 07/21/25 at 14:00; Stop 07/21/25 at 14:23; Status DC Metronidazole/ Sodium Chloride 500 mg Q8H IV; Start 07/21/25 at 14:00; Stop 07/21/25 at 13:40; Status DC Fluconazole/ Sodium Chloride 200 mg Q24H IVPB Last administered on 08/10/25at 20:26; Start 07/21/25 at 21:00; Stop 08/20/25 at 20:59 Pharmacy Profile Note 1 each ONCE MISC; Start 07/21/25 at 15:30; Stop 07/21/25 at 15:16; Status DC Thiamine HCl 100 mg/Sodium Chloride 50 ml @ 100 mls/hr Q24H IM; Start 07/21/25 at 15:30; Stop 07/21/25 at 16:25; Status DC Sodium Bicarbonate 100 meq ONCE ONCE IV Last administered on 07/21/25at 16:42; Start 07/21/25 at 16:30; Stop 07/21/25 at 16:31; Status DC Thiamine HCl 100 mg DAILY IVP Last administered on 08/11/25at 09:09; Start 07/22/25 at 21:00; Stop 08/21/25 at 20:59 Diatrizoate Meglum/ Diatrizoate Sod 30 ml STK-MED ONCE .ROUTE; Start 07/23/25 at 15:13; Stop 07/23/25 at 15:13; Status DC Potassium Chloride 100 ml @ 100 mls/hr AD PRN IV Last administered on 07/30/25at 06:23; Start 07/24/25 at 08:30; Stop 08/23/25 at 08:29 Potassium Chloride 20 meq AD PRN PO Last administered on 07/31/25at 08:15; Start 07/24/25 at 08:30; Stop 08/23/25 at 08:29 Potassium Chloride 20 meq AD PRN PO Last administered on 07/27/25at 20:33; Start 07/24/25 at 08:30; Stop 08/23/25 at 08:29 Hydromorphone HCl 0.5 mg Q4H PRN IVP Last administered on 07/29/25at 08:22; Start 07/24/25 at 10:00; Stop 07/29/25 at 09:59; Status DC Spironolactone 25 mg BID PO Last administered on 07/26/25at 08:56; Start 07/25/25 at 21:00; Stop 07/26/25 at 09:01; Status DC Albumin Human 100 ml @ 0 mls/hr ONCE ONCE IV Last administered on 07/25/25at 17:05; Start 07/25/25 at 10:30; Stop 07/25/25 at 10:31; Status DC Albumin Human 100 ml @ 0 mls/hr ONCE IV Last administered on 07/25/25at 13:43; Start 07/25/25 at 12:00; Stop 07/26/25 at 11:59; Status DC Cyclobenzaprine HCl 5 mg TID PO Last administered on 07/26/25at 14:19; Start 07/25/25 at 14:00; Stop 07/26/25 at 14:00; Status DC Furosemide 20 mg DAILY PO Last administered on 08/02/25at 09:42; Start 07/25/25 at 11:00; Stop 08/02/25 at 11:53; Status DC Pantoprazole Sodium 40 mg BID IV Last administered on 08/11/25at 09:09; Start 07/26/25 at 21:00; Stop 08/20/25 at 08:59 Psyllium Hydrophilic Mucilloid 1 tbs BID PO Last administered on 08/11/25at 09:09; Start 07/26/25 at 21:00; Stop 08/25/25 at 20:59 Lactobacillus Rhamnosus 1 each DAILY20 PO Last administered on 08/10/25at 20:25; Start 07/26/25 at 20:00; Stop 08/25/25 at 19:59 Iron Sucrose 200 mg ONCE ONCE IV Last administered on 07/26/25at 14:19; Start 07/26/25 at 14:00; Stop 07/26/25 at 14:01; Status DC Lidocaine 1 patch DAILY TP Last administered on 08/11/25at 09:09; Start 07/28/25 at 09:00; Stop 08/27/25 at 08:59 Simethicone 80 mg Q6H6 PO Last administered on 08/11/25at 11:28; Start 07/27/25 at 12:00; Stop 08/26/25 at 11:59 Acetaminophen 500 mg Q6H6 PRN PO; Start 07/27/25 at 16:30; Stop 08/07/25 at 12:15; Status DC Lidocaine 1 patch ONCE ONCE TP Last administered on 07/27/25at 19:25; Start 07/27/25 at 19:30; Stop 07/27/25 at 19:31; Status DC Albumin Human 50 ml @ 0 mls/hr AD ONCE IV Last administered on 07/28/25at 17:44; Start 07/28/25 at 15:30; Stop 07/28/25 at 15:31; Status DC Albumin Human 100 ml @ 0 mls/hr AD ONCE IV Last administered on 07/29/25at 14:26; Start 07/29/25 at 12:30; Stop 07/29/25 at 12:31; Status DC Hydromorphone HCl 0.5 mg Q4H PRN IVP Last administered on 08/03/25at 13:09; Start 07/29/25 at 13:30; Stop 08/03/25 at 13:29; Status DC Gabapentin 100 mg TID PO Last administered on 08/01/25at 20:14; Start 07/29/25 at 14:00; Stop 08/02/25 at 09:21; Status DC Clotrimazole 1 GM BID TP Last administered on 08/11/25at 09:09; Start 07/29/25 at 21:00; Stop 08/28/25 at 20:59 Sucralfate 1 gm ACHS PO Last administered on 08/11/25at 11:28; Start 07/29/25 at 21:00; Stop 08/28/25 at 20:59 Piperacillin Sod/ Tazobactam Sod 3.375 gm Q8H IVPB Last administered on 08/10/25at 04:05; Start 07/31/25 at 11:30; Stop 08/10/25 at 11:29; Status DC Sodium Chloride 50 ml AD IV; Start 07/31/25 at 11:30; Stop 07/31/25 at 11:12; Status DC Iron Sucrose 300 mg/Sodium Chloride 250 ml @ 83 mls/hr ONCE ONCE IV Last administered on 07/31/25at 13:36; Start 07/31/25 at 12:00; Stop 07/31/25 at 15:00; Status DC Fentanyl 25 mcg Q72H TD; Start 07/31/25 at 14:30; Stop 07/31/25 at 14:44; Status DC Acetaminophen/ Hydrocodone Bitart 1 tab Q4H PRN PO Last administered on 08/05/25at 14:57; Start 07/31/25 at 16:30; Stop 08/05/25 at 16:29; Status DC Chromium/Copper/ Manganese/Zinc 3 ml/Multivitamins/ Minerals 10 ml/ Amino Acids/ Electrolytes/ Dextrose 2,000 ml @ 80 mls/hr ONCE ONCE IV Last administered on 08/01/25at 20:25; Start 08/01/25 at 20:00; Stop 08/02/25 at 20:59; Status DC Albumin Human 100 ml @ 0 mls/hr AD ONCE IV Last administered on 08/02/25at 09:41; Start 08/02/25 at 09:30; Stop 08/02/25 at 09:33; Status DC Lidocaine HCl 20 ml STK-MED ONCE .ROUTE; Start 08/02/25 at 11:24; Stop 08/02/25 at 11:24; Status DC Iohexol 50 ml STK-MED ONCE IV; Start 08/02/25 at 11:24; Stop 08/02/25 at 11:25; Status DC Estrogens Conjugated 1 appl ONCE ONCE VG; Start 08/02/25 at 12:00; Stop 08/02/25 at 12:01; Status DC Fentanyl Citrate 100 mcg STK-MED ONCE .ROUTE; Start 08/02/25 at 11:53; Stop 08/02/25 at 11:53; Status DC Midazolam HCl 2 mg STK-MED ONCE .ROUTE; Start 08/02/25 at 11:54; Stop 08/02/25 at 11:54; Status DC Midazolam HCl 2 mg STK-MED ONCE .ROUTE; Start 08/02/25 at 12:15; Stop 08/02/25 at 12:16; Status DC Multivitamins/ Minerals 10 ml/ Chromium/Copper/ Manganese/Zinc 3 ml/Amino Acids/ Electrolytes/ Dextrose 2,000 ml @ 80 mls/hr ONCE ONCE IV Last administered on 08/02/25at 21:08; Start 08/02/25 at 20:00; Stop 08/03/25 at 18:39; Status DC Estrogens Conjugated 1 appl ONCE ONCE VG Last administered on 08/02/25at 18:47; Start 08/02/25 at 18:30; Stop 08/02/25 at 18:31; Status DC Albumin Human 50 ml @ 0 mls/hr Q12H IV; Start 08/02/25 at 18:30; Stop 08/02/25 at 20:04; Status DC Albumin Human 50 ml @ 100 mls/hr Q12H IV Last administered on 08/05/25at 10:12; Start 08/02/25 at 21:30; Stop 08/05/25 at 09:59; Status DC Hydromorphone HCl 0.5 mg Q4H PRN IVP Last administered on 08/07/25at 05:09; Start 08/03/25 at 18:00; Stop 08/07/25 at 10:03; Status DC Chromium/Copper/ Manganese/Zinc 3 ml/Multivitamins/ Minerals 10 ml/ Amino Acids/ Electrolytes/ Dextrose 2,000 ml @ 80 mls/hr ONCE ONCE IV Last administered on 08/03/25at 21:51; Start 08/03/25 at 20:00; Stop 08/04/25 at 12:47; Status DC Chromium/Copper/ Manganese/Zinc 3 ml/Multivitamins/ Minerals 10 ml/ Amino Acids/ Electrolytes/ Dextrose 2,000 ml @ 80 mls/hr ONCE ONCE IV Last administered on 08/04/25at 21:54; Start 08/04/25 at 21:00; Stop 08/05/25 at 21:59; Status DC Metoclopramide HCl 5 mg BID IVP Last administered on 08/11/25at 09:09; Start 08/04/25 at 21:00; Stop 09/03/25 at 20:59 Iohexol 75 ml STK-MED ONCE IV; Start 08/04/25 at 14:27; Stop 08/04/25 at 14:26; Status DC Propofol 200 mg STK-MED ONCE IV; Start 08/05/25 at 12:54; Stop 08/05/25 at 12:54; Status DC Lidocaine HCl 100 mg STK-MED ONCE .ROUTE; Start 08/05/25 at 12:54; Stop 08/05/25 at 12:55; Status DC Pantoprazole Sodium 40 mg BID IVP Last administered on 08/05/25at 20:25; Start 08/05/25 at 21:00; Stop 08/06/25 at 08:39; Status DC Multivitamins/ Minerals 10 ml/ Amino Acids/ Electrolytes/ Dextrose 2,000 ml @ 80 mls/hr ONCE ONCE IV Last administered on 08/06/25at 04:53; Start 08/06/25 at 05:00; Stop 08/07/25 at 05:59; Status DC Pharmacy Profile Note 1 each ONCE MISC; Start 08/06/25 at 16:00; Stop 08/07/25 at 07:07; Status DC Lidocaine HCl/Al Hydroxide/Mg Hydroxide/ Dicyclomine HCl 20ML OR AD ONCE PO Last administered on 08/06/25at 16:45; Start 08/06/25 at 16:30; Stop 08/07/25 at 16:29; Status DC Multivitamins/ Minerals 10 ml/ Amino Acids/ Electrolytes/ Dextrose 2,000 ml @ 80 mls/hr ONCE ONCE IV; Start 08/07/25 at 07:00; Stop 08/07/25 at 06:32; Status DC Multivitamins/ Minerals 10 ml/ Chromium/Copper/ Manganese/Zinc 3 ml/Amino Acids/ Electrolytes/ Dextrose 2,000 ml @ 80 mls/hr ONCE ONCE IV Last administered on 08/07/25at 06:41; Start 08/07/25 at 07:00; Stop 08/08/25 at 04:36; Status DC Acetaminophen 500 mg Q6H6 PRN PO; Start 08/07/25 at 10:00; Stop 08/07/25 at 10:03; Status DC Hydromorphone HCl 0.5 mg Q4H PRN IVP Last administered on 08/10/25at 20:27; Start 08/07/25 at 10:00; Stop 08/11/25 at 10:32; Status DC Acetaminophen/ Hydrocodone Bitart 1 tab Q4H PRN PO Last administered on 08/11/25at 06:26; Start 08/07/25 at 12:30; Stop 08/12/25 at 12:29 Chromium/Copper/ Manganese/Zinc 3 ml/Amino Acids/ Electrolytes/ Dextrose 2,000 ml @ 80 mls/hr ONCE ONCE IV; Start 08/08/25 at 05:00; Stop 08/08/25 at 04:59; Status DC Chromium/Copper/ Manganese/Zinc 3 ml/Amino Acids/ Electrolytes/ Dextrose 2,000 ml @ 80 mls/hr ONCE ONCE IV Last administered on 08/08/25at 05:51; Start 08/08/25 at 07:00; Stop 08/09/25 at 05:18; Status DC Chromium/Copper/ Manganese/Zinc 3 ml/Amino Acids/ Electrolytes/ Dextrose 2,000 ml @ 80 mls/hr ONCE ONCE IV Last administered on 08/09/25at 06:11; Start 08/09/25 at 07:00; Stop 08/10/25 at 07:59; Status DC Lidocaine HCl 50 ml STK-MED ONCE .ROUTE; Start 08/09/25 at 09:59; Stop 08/09/25 at 09:59; Status DC Iohexol 50 ml STK-MED ONCE IV; Start 08/09/25 at 09:59; Stop 08/09/25 at 09:59; Status DC Sodium Chloride 10 ml Q8H IJ Last administered on 08/11/25at 11:50; Start 08/09/25 at 11:00; Stop 09/08/25 at 10:59 Fentanyl 12 mcg Q72H TD; Start 08/09/25 at 13:00; Stop 08/09/25 at 15:19; Status DC Fentanyl Citrate 100 mcg STK-MED ONCE .ROUTE Last administered on 08/09/25at 16:15; Start 08/09/25 at 13:17; Stop 08/09/25 at 13:17; Status DC Midazolam HCl 2 mg STK-MED ONCE .ROUTE Last administered on 08/09/25at 16:15; Start 08/09/25 at 13:17; Stop 08/09/25 at 13:18; Status DC Fentanyl 12 mcg Q72H TD Last administered on 08/09/25at 15:38; Start 08/09/25 at 15:30; Stop 08/11/25 at 10:32; Status DC Chromium/Copper/ Manganese/Zinc 3 ml/Multivitamins/ Minerals 10 ml/ Amino Acids/ Electrolytes/ Dextrose 2,000 ml @ 80 mls/hr ONCE ONCE IV Last administered on 08/10/25at 09:54; Start 08/10/25 at 08:30; Stop 08/11/25 at 09:29; Status DC Piperacillin Sod/ Tazobactam Sod 3.375 gm Q8H IVPB Last administered on 08/11/25at 12:39; Start 08/10/25 at 13:00; Stop 08/20/25 at 12:59 Fentanyl 25 mcg Q72H TD; Start 08/12/25 at 15:30; Stop 08/17/25 at 15:29; Status UNV Hydromorphone HCl 0.5 mg Q6H PRN IVP Last administered on 08/11/25at 12:39; Start 08/11/25 at 11:00; Stop 08/16/25 at 10:59 SUSAN JHAVERI MD Aug 11, 2025 14:06
--- NOTE | 2025-08-11 14:48 | PN ---
[facility] PROGRESS NOTE Date of Service: Aug 11, 2025 Time of Service: 9:00 SUBJECTIVE: Ms. Gray is a 55-year-old female that was seen and examined today on 07/20/2025. Patient reports that she came to the emergency department with a chief complaint of abdominal pain. Onset was 07/09/2025. Location is all four quadrants. Duration is constant. Character is described as pressure and " like I have a lot of gas trapped. " there was no alleviating factors. There was no aggravating factors. Patient reports associated abdominal swelling. 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 After the discharge she was taking pain medications and her condition started worsening after few days. She is in constant follow up with Dr Gann. Today in the emergency department WBCs 21.2, left shift neutrophils 85.5%, BUN 26, creatinine 3.1, GFR 17, lactic acid 8.0, no urinalysis has been collected or sent to lab, CT of abdomen and pelvis showed of free air in the abdomen which could be a suspected bowel perforation versus postsurgical changes, moderate ascites, fissure post surgical changes. Chest x-ray shows right pleural effusion. Additionally patient had a heart rate of 125, respirations 26, together with leukocytosis and lactic acidosis patient met clinical sepsis criteria additionally patient's blood pressure dropped to 85/50 mmHg requiring vasopressor support therefore meeting criteria for septic shock. Patient will be admitted to the intensive care unit. Emergency room physician spoke with patient's surgeon, Dr. Gann who requested patient be admitted under hospitalist service and she will follow this case along. 07/21/25 Patient was evaluated at the bedside. She was accompanied by her daughter. She is oriented to the time, place and person. She complained of abdominal pain in all the quadrants. She hasn't had bowel movement since Saturday and also is unable to pass flatus at this time. She has guarding, rigidity and tenderness all over the abdomen, showing the signs of peritonitis. She was seen by Dr Gann this alba and is planned to be taken to OR this afternoon. Dueñas catheter is in place, as she wasn't able to pass the urine. There is no fever, chills and any other signs of infection. 07/22/25 Patient was evaluated at the bedside. She was accompanied by her daughter. She is oriented to the time, place and person. She underwent Diagnostic laparoscopy, abdominal washout, drain placement and diverting loop ileostomy creation, The procedure revealed Bilious peritonitis, 2 mm perforation of the colonic anastomosis. She is hemodynamically stable with Blood pressure of 110/73 and HR of 83. Currently she complains of abdominal pain which is getting better than yesterday, its 3-4/10 intensity. There is no rigidity. She is anxious about the outcomes and had discussion regarding her current clinical status and lab parameters. There is no fever, chills and any other signs of infection. 07/23/25 Patient was evaluated at the bedside. She was accompanied by her daughter. She is oriented to the time, place and person. She status post diagnostic laparoscopy, abdominal washout, drain placement and diverting loop ileostomy creation. Currently she complains of abdominal pain which is 5/10 intensity. She also complaints of mild lower back pain There is no fever, chills and any other signs of infection. She has CHRIS drain in-situ with clear fluid along with colostomy bag. She is currently tolerating clear liquid diet. 07/24/2025 Patient is seen and examined at the bedside. Vitals blood pressure ranging in 100s/50s, pulse rate 50s, SpO2 greater than 95% on room air. She mentions about experiencing pressure-like discomfort on the right side of the abdomen and pain when she tries to eat. No acute events last night. She denies fever, chills, nausea, vomiting, chest pain. CHRIS output approximately 100cc/hr, serosanguineous fluid. Ileostomy bag in place. She is tolerating clear liquid diet without any nausea/vomiting. Labs hemoglobin 9.8, BUN 38, creatinine improved from 1.6-1.1. 07/25/2025 Patient is seen and examined at the bedside. She complains of abdominal pain which is 7/10 in intensity. No acute events last night. She denies fever, chills, nausea, vomiting, chest pain. CHRIS output approximately 100cc/hr, serosanguineous fluid. Ileostomy bag in place. The patient has been started on spironolactone 25mg BID and Lasix 20 mg once daily. There is high output from CHRIS but it is clear serous, most likely related to her ascites from her history of liver cirrhosis. She is tolerating clear liquid diet without any nausea/vomiting. 07/26/2025 Patient is seen and examined at the bedside. She complains of abdominal pain which remains constant. No acute events last night. She denies fever, chills, nausea, vomiting, chest pain. Patient is status post with a CHRIS drain. The drain has been collecting the serosanguineous fluid secondary to ascites. She has been tolerating liquid diet and her diet has been advanced to soft diet. She still has bloating for which probiotics and fibers has been recommended. Hemoglobin has gradually trended down to 9.2 and was given IV Venofer. Patient to get up and ambulate and work with physical therapy. 07/27/2025 Patient is seen and examined at the bedside. She complains of abdominal pain which is 6/10 in intensity. No acute events last night. She denies fever, chills, nausea, vomiting, chest pain. Patient is unable to tolerate the soft diet, hence she is currently receiving the liquid diets. The CHRIS drain output is still high and there was small amount of drainage observed in the right ileostomy. 07/28/2025 Patient is seen and examined at the bedside. She complains of abdominal pain which is 9/10 in intensity. No acute events last night. She denies fever, chills, nausea, vomiting, chest pain. Patient reported pain after eating but no nausea or vomiting. WBC is gradually trending up from 8.3-7.3-11.1-11.8. She had lidocaine patch placed this morning. She was started on simethicone 80 mg yesterday. Pertinent she is currently receiving Dilaudid 0.5 mg. Abdominal ultrasound has been ordered for further assessment. 07/29/2025 Patient is seen and examined at the bedside. She continues to complain of severe abdominal pain, rated 9/10 in intensity, unchanged from prior. She is currently receiving Dilaudid 0.5 mg for pain. She reports discomfort related to Dueñas catheterization. She denies fever, chest pain, nausea or vomiting at this time. No acute events were reported overnight. Blood pressure noted today is noted to be 98/54 mm Hg which is slightly low. Per surgery team, stoma is likely to be removed today. Hemoglobin has trended down from 9.7 g/dl to 9.0 g/dl. 07/30/2025 Patient is seen and examined at the bedside. She continues to complain of severe abdominal pain. Her abdominal distention has slightly improved. Dueñas's catheter was removed due to persistent discomfort. We will continue with scheduled removal of the ascites fluid and from CHRIS bulb. Ultrasound of abdomen was concerning for cholelithiasis with biliary sludge and gallbladder distention. HIDA scan was performed today. If consistent with cholecystitis patient will need cholecystostomy tube placement. 07/31/2025 Patient is seen and examined at the bedside. She was accompanied by her daughter. She continues to complain of severe abdominal pain. She is currently on Dilaudid 0.5mg Q4H PRN, which relieves the symptoms for 2-3 hours, after that she develops same level of pain and discomfort again. Currently awaiting the HIDA scan results. Her sodium level is 133 and albumin level is trending downwards from 2.3 to 2.1. Her Iron panel results showed: Iron 20L, TIBC 147L and %sat 16.3L. For her continuos pain she is started on Fentanyl 25mcg. CHRIS drain culture has beens sent. Based on the results of HIDA scan, CT chest will be planned. 08/01/2025: Patient is seen and examined this morning at bedside. She was accompanied by her daughter. The patient complains of severe abdominal pain. She is currently being managed with Brandon, and Dilaudid for breakthrough pain. HIDA scan results are back, and show acute cholecystitis. Surgery has been made aware of the results. IR has been consulted for cholecystostomy tube placement. The patient will be started on PPN, as recommended by general surgery. The patient follows with Dr. Sol outpatient for her liver cirrhosis. The patients daughter would like her drafting clerk Dr. Sol to be involved in the patients care, and be updated with her status. 08/02/2025: Patient is seen and evaluated in the room 432. She was accompanied by her daughter. She complains of severe abdominal pain. She also complained of bleeding through her vagina, pink tinged urine. Her vitals are in the normal range. Her labs are in the normal range except for Hb is 8.6, Na is 135, K is 5.2, BUN is 4, Glucose is 150, CRP is 103.90. She went for placement of cholecystectomy tube by IR. We did a pelvic exam and ordered a vaginal estrogen cream and urinalysis. Also for her hyperkalemia we checked the potassium again and its 4.1. So we will repeat the labs tomorrow. We ordered a dose of albumin for her. 08/03/2025: Patient is seen and evaluated in the room 432. She has mild abdominal pain today. Her pain improved after the placement for cholecystotomy tube. Her vitals are in the normal range. Her labs are normal except for hemoglobin 8.2, glucose 156, CRP 89.8. Her aerobic and anaerobic culture of drain showed no growth. Gastroenterology saw the patient and they recommended 25 grams of 25% IV albumin q12H for 3 days. Her bleeding through the vagina decreased. The drainage through the left abdomen is 100ml, right abdomen is 20ml, left anterior abdomen 5ml. 08/04/2025: Patient is seen and evaluated in the room 432. She has abdominal pain today. Her vitals are in the normal range. Her labs are normal except for Hb is 8, CRP is 72.10, glucose is 130. Aerobic and anaerobic drain culture showed no growth. She is not able to tolerate her food. The drainage through the left abdomen is 100ml, right abdomen is 20ml, left anterior abdomen 5ml. Gastroenterology is planning to do EGD tomorrow. Surgery wanted to do a CT abdomen and pelvis with IV contrast. CT scan showed perisplenic and infrasplenic fluid collection measuring 6.0 x 6.1 x 8.9 cm, splenomegaly, with spleen measuring 15.2 cm, cholecystostomy tube in situ with decompressed gallbladder, abdominal drain in situ with tip in the pelvis. We ordered T.bilirubin and we will monitor the output from colostomy tube. We are also planning to add metoclopramide. 08/05/2025: Patient is seen and evaluated in the room 432. She has abdominal pain today. Her abdomen is tender to touch and warm. Her vital signs are in the normal range except for BP is 117/45. Her labs are normal except for Hb is 8.2, sodium is 135, creatinine is 0.3, CRP is 60.9 The drain output from left abdomen is 40ml, left anterior abdomen 0ml, right abdomen 0ml. Her saturation is 100% on 10L of O2. Her labs are in the normal range except for Hb is 8.2, HCT is 25.9, sodium is 135, glucose is 107, CRP is 60.90. She underwent endoscopy today and they did biopsy from 3 sites. GI said that they will consult radiology to check whether CHRIS drain and cholecystostomy tube are in place. General surgery will consult IR to evaluate perisplenic fluid collection for potential aspiration. 08/06/2025: Patient is seen and evaluated in the room 432. She has abdominal pain today. Her abdomen is tender to touch and warm. Her vital signs are in the normal range except for 97/63. Her labs are in the normal range except for Hb is 8.1, sodium is 135, blood glucose is 151, CRP 53.60. We are waiting for IR consult for evaluation and for potential aspiration of perisplenic fluid. The drain output from right abdomen is 20ml. 08/07/2025: Patient is seen and evaluated in the room 432. She has abdominal pain today. Her abdomen is tender to touch and warm. Her vital signs are in the normal range except for blood pressure which is 102/60. Her labs are in the normal range except for Hb is 8.5, WBC is 4.4, RDW is 17.3, sodium is 134, glucose is 147. We are waiting for IR consult for evaluation and for potential aspiration of perisplenic fluid. The drain output from right abdomen is 20ml. The CONSTRUCTION MANAGER told me that she eats her food after taking her pain medications. Nurse is planning to start full liquid diet for lunch. 08/08/2025: She was evaluated at the bedside this morning. She is AAO x3. she complained of epigastric pain which gets worse with food . Moderate tenderness was appreciated on the epigastric region. Her blood pressure is 99/46, pulse 80. Remarkable lab is for WBC of 4.8, hemoglobin 9, CRP 43.90. She is scheduled with IR for perisplenic fluid aspiration and checking the position of cholecystostomy tube. She is on full liquid diet. She is on Zosyn, fluconazole. Surgery, GI, ID on the board. Rest of the plan as discussed below. 08/09/2025: Patient went to sleep lab technologist for PROCEDURE. As per nurse, her cholecystostomy tube was already correctly positioned but had some stones so tube was flushed. She complained of epigastric and pelvic pain. For pain control, fentanyl patch has been ordered. She is pending perisplenic fluid aspiration by IR. Her blood pressure is 98/58, pulse 90. She is currently NPO. She is on Zosyn, fluconazole. Surgery, GI, ID on the board. Rest of the plan as discussed below. 08/10/2025: Patient was seen and examined at bedside. She underwent CT GUIDED PERISPLENIC PIGTAIL DRAINAGE CATHETER PLACEMENT with Aspiration of perisplenic fluid. There has been 25 ml sanguinous drainage so far in the catheter. Her cholecystostomy tube has had 30 mL drainage in the past 24 hours. She is currently on clear liquid diet tolerating it well. She continues to complain pain in her abdomen without any peritoneal signs. She was started on fentanyl patch yesterday. Gram stain and body fluid culture were sent after drainage of perisplenic abscess which showed RARE GRAM POSITIVE COCCI after 1 day. Patient is currently on Zosyn. 08/11/2025: Patient was seen and examined. She continues to complain of abdominal pain. Her multimodal pain medications were adjusted with fentanyl increased to 25mcg and Dilaudid frequency changed from q.4h to q.6h. She is currently on clear liquid diet and complains of pain while eating. She continues on Zosyn and fluconazole. We are waiting for culture results after drainage of perisplenic abscess. Incision site is clean, dry and intact. Will continue to follow recommendations from ID, General surgery and Nephrology. REVIEW OF SYSTEMS CONSTITUTIONAL: No fever, chills, or night sweats. NEUROLOGICAL: Denies headache, sensory and motor deficit. CARDIOVASCULAR: Denies any exertional angina, dyspnea on exertion, palpitations. PULMONARY: Denies any shortness of breath, cough, phlegm/sputum, hemoptysis, pleuritic chest pain. GASTROINTESTINAL: Patient complains of diffuse abdominal pain. She also has bloating. Denies nausea, vomiting. No peritoneal signs observed. GENITOURINARY: Denies frequency, urgency, nocturia, hematuria or incontinence. PHYSICAL EXAM GENERAL APPEARANCE: The patient is alert, awake and oriented and bedbound. NEUROLOGICAL: No sensory and motor deficits. CHEST: Normal chest expansion. LUNGS: Normal Vesicular breath sound. Absence of any rales, rhonchi or any wheezing. CARDIOVASCULAR: Regular. S1 and S2 normal. No appreciable rubs, murmurs or gallops. ABDOMEN: Abdomen is soft and slightly tender. CHRIS drain is placed. Ileostomy creation. Cholecystostomy tube is placed. Drainage catheter in left upper abdominal quadrant as well. Absence of guarding, rigidity and rebound tenderness. GENITOURINARY: No suprapubic tenderness. No costovertebral angle tenderness. Vital Signs (last 8hr) Date Time Temp Pulse Resp B/P (MAP) Pulse Ox O2 Delivery O2 Flow Rate FiO2 08/11/25 12:00 97.5 82 16 96/60 97 Room Air 08/11/25 08:00 97.9 78 20 88/62 99 Room Air 08/11/25 08:00 96 Room Air* 0 21 LABS: Laboratory: Test 08/11/25 11:44 08/11/25 02:06 08/10/25 02:15 Range/Units Whole Blood Glucose 123 H 70-110 MG/DL White Blood Count 5.1 4.8-10.8 K/uL Red Blood Count 3.00 L 4.00-5.50 MIL/uL Hemoglobin 8.8 L 12.0-16.0 g/dL Hematocrit 27.4 L 36-48 % Mean Corpuscular Volume 91.3 79-99 fL Mean Corpuscular Hemoglobin 29.3 27.0-33.0 pg Mean Corpuscular Hemoglobin Concent 32.1 32.0-36.0 g/dL Red Cell Distribution Width 17.4 H 11.0-15.5 % Platelet Count 182 130-400 K/uL Mean Platelet Volume 10.0 7.5-10.5 fL Nucleated Red Blood Cells 0.0 0.0-0.19 % Prothrombin Time 13.8 H 9.6-11.6 SEC Prothromb Time International Ratio 1.34 H 0.85-1.15 Activated Partial Thromboplast Time 32.2 26.3-35.5 SEC Sodium Level 135 L 136-145 mmol/L Potassium Level 4.4 3.5-5.1 mmol/L Chloride Level 104 101-111 mmol/L Carbon Dioxide Level 22 21-32 mmol/L Blood Urea Nitrogen 16 7-18 mg/dL Creatinine 0.6 0.5-1.0 mg/dL Glomerular Filtration Rate Calc 105 >90 mL/min Random Glucose 112 H 70-105 mg/dL Total Calcium 8.6 8.5-10.1 mg/dL Phosphorus Level 2.7 2.5-4.9 mg/dL Magnesium Level 1.90 1.80-2.40 mg/dL Total Bilirubin 0.5 0.2-1.0 mg/dL Aspartate Amino Transf (AST/SGOT) 34 10-37 U/L Alanine Aminotransferase (ALT/SGPT) 14 12-78 U/L Alkaline Phosphatase 121 50-136 U/L Total Protein 7.2 6.0-8.3 g/dL Albumin 2.5 L 3.5-5.0 g/dL Urine Color LIGHT-YELLOW YELLOW Urine Appearance CLEAR CLEAR Urine pH 6.0 5.0-8.0 Urine Specific [place] 1.018 1.001-1.031 Urine Protein NEGATIVE NEGATIVE mg/dL Urine Glucose (UA) NEGATIVE NEGATIVE mg/dL Urine Ketones NEGATIVE NEGATIVE mg/dL Urine Occult Blood NEGATIVE NEGATIVE Urine Nitrate NEGATIVE NEGATIVE Urine Bilirubin NEGATIVE NEGATIVE mg/dL Urine Urobilinogen 0.2 0.2-1.0 mg/dL Urine Leukocyte Esterase NEGATIVE NEGATIVE Regino/uL Current Medications Medications (Trade) Dose Ordered Sig/Gregory Route PRN Reason Start Time Stop Time Status Last Admin Dose Admin Acetaminophen (TYLenol 500MG TAB) 500 mg Q6H6 PRN PO MILD PAIN (1-3) 07/27/25 16:30 08/07/25 12:15 DC Acetaminophen (TYLenol 500MG TAB) 500 mg Q6H6 PRN PO MILD PAIN (1-3) 08/07/25 10:00 08/07/25 10:03 DC Acetaminophen (TYLenol 650MG SUPPOSITORY) 650 mg Q6H PRN RC MILD PAIN (1-3) 07/21/25 00:00 07/27/25 16:22 DC Acetaminophen/ Hydrocodone Bitart (NORco 5/325MG) 1 tab Q4H PRN PO MODERATE PAIN (4-6) 07/31/25 16:30 08/05/25 16:29 DC 08/05/25 14:57 1 TAB Acetaminophen/ Hydrocodone Bitart (NORco 5/325MG) 1 tab Q4H PRN PO MODERATE PAIN (4-6) 08/07/25 12:30 08/12/25 12:29 08/11/25 06:26 1 TAB Albumin Human 50 ml @ 100 mls/hr Q12H IV 08/02/25 21:30 08/05/25 09:59 DC 08/05/25 10:12 100 MLS/HR Albumin Human 50 ml @ 0 mls/hr Q12H IV 08/02/25 18:30 08/02/25 20:04 DC Albumin Human 100 ml @ 0 mls/hr ONCE IV 07/25/25 12:00 07/26/25 11:59 DC 07/25/25 13:43 100 MLS/HR Clotrimazole (Lotrimin) 1 GM BID TP 07/29/25 21:00 08/28/25 20:59 08/11/25 09:09 1 GM Cyclobenzaprine HCl (Cyclobenzaprine HCl) 5 mg TID PO 07/25/25 14:00 07/26/25 14:00 DC 07/26/25 14:19 5 MG Fentanyl (DURAgesic 12 MCG/HR PATCH) 12 mcg Q72H TD 08/09/25 13:00 08/09/25 15:19 DC Fentanyl (DURAgesic 12 MCG/HR PATCH) 12 mcg Q72H TD 08/09/25 15:30 08/11/25 10:32 DC 08/09/25 15:38 12 MCG Fentanyl (DURAgesic 25 MCG/HR PATCH) 25 mcg Q72H TD 07/31/25 14:30 07/31/25 14:44 DC Fentanyl (DURAgesic 25 MCG/HR PATCH) 25 mcg Q72H TD 08/12/25 15:30 08/17/25 15:29 UNV Fluconazole/ Sodium Chloride (DiFLUCan 200 MG/ NS 100 ML) 200 mg Q24H IVPB 07/21/25 21:00 08/20/25 20:59 08/10/25 20:26 200 MG Furosemide (LASix 20MG TAB) 20 mg DAILY PO 07/25/25 11:00 08/02/25 11:53 DC 08/02/25 09:42 20 MG Gabapentin (NEURontin 100 mg CAP) 100 mg TID PO 07/29/25 14:00 08/02/25 09:21 DC 08/01/25 20:14 100 MG Gabapentin (NEURontin 100 mg CAP) 100 mg TID PO 08/11/25 21:00 09/10/25 20:59 Hydromorphone HCl (DiLAUDid 0.5MG INJ) 0.5 mg Q4H PRN IVP SEVERE PAIN (7-10) 07/24/25 10:00 07/29/25 09:59 DC 07/29/25 08:22 0.5 MG Hydromorphone HCl (DiLAUDid 0.5MG INJ) 0.5 mg Q4H PRN IVP SEVERE PAIN (7-10) 07/29/25 13:30 08/03/25 13:29 DC 08/03/25 13:09 0.5 MG Hydromorphone HCl (DiLAUDid 0.5MG INJ) 0.5 mg Q4H PRN IVP SEVERE PAIN (7-10) 08/03/25 18:00 08/07/25 10:03 DC 08/07/25 05:09 0.5 MG Hydromorphone HCl (DiLAUDid 0.5MG INJ) 0.5 mg Q4H PRN IVP SEVERE PAIN (7-10) 08/07/25 10:00 08/11/25 10:32 DC 08/10/25 20:27 0.5 MG Hydromorphone HCl (DiLAUDid 0.5MG INJ) 0.5 mg Q6H PRN IVP SEVERE PAIN (7-10) 08/11/25 11:00 08/16/25 10:59 08/11/25 12:39 0.5 MG Insulin Human Regular (humuLIN R 100 UNIT/ML 3ML) INSULIN SLIDING SCAL... ACHS SQ 07/21/25 07:30 08/20/25 07:29 08/10/25 20:41 2 UNIT Lactated Ringer's 1,000 ml @ 75 mls/hr [id number] IV 07/21/25 00:00 07/21/25 13:17 DC 07/21/25 02:57 75 MLS/HR Lactated Ringer's 1,000 ml @ 75 mls/hr [id number] IV 07/21/25 13:30 07/24/25 11:09 DC 07/24/25 09:27 75 MLS/HR Lactobacillus Rhamnosus ([facility]) 1 each DAILY20 PO 07/26/25 20:00 08/25/25 19:59 08/10/25 20:25 1 EACH Lidocaine (Lidoderm Patch 5%) 1 patch DAILY TP 07/28/25 09:00 08/27/25 08:59 08/11/25 09:09 1 PATCH Lidocaine HCl/Al Hydroxide/Mg Hydroxide/ Dicyclomine HCl 20ML OR AD ONCE PO 08/06/25 16:30 08/07/25 16:29 DC 08/06/25 16:45 20 ML Magnesium Sulfate 50 ml @ 0 mls/hr PROTOCOL PRN IV MAGNESIUM PROTOCOL 07/21/25 07:00 08/20/25 06:59 08/01/25 06:05 25 MLS/HR Methocarbamol (methoCARBamol) 500 mg BID PO 08/11/25 16:00 09/10/25 15:59 Metoclopramide HCl (regLAN 10MG IV) 5 mg BID IVP 08/04/25 21:00 09/03/25 20:59 08/11/25 09:09 5 MG Metronidazole/ Sodium Chloride (flaGYL) 500 mg Q8H IV 07/21/25 14:00 07/21/25 13:40 DC Morphine Sulfate (morPHINE 2MG SYG) 2 mg Q4H PRN IVP SEVERE PAIN (7-10) 07/21/25 00:30 07/21/25 13:18 DC 07/21/25 04:46 2 MG Morphine Sulfate (morPHINE 4MG SYG) 4 mg Q3H PRN IV MODERATE PAIN (4-6) 07/21/25 13:30 07/26/25 16:29 DC 07/26/25 10:51 4 MG Norepinephrine 250 ml @ 0 mls/hr PROTOCOL IV 07/20/25 23:30 08/03/25 08:27 DC 07/21/25 10:56 18.45 MLS/HR Ondansetron HCl (zoFRAN 4MG INJ) 4 mg Q4H PRN IVP NAUSEA 07/21/25 13:30 08/20/25 13:29 Ondansetron HCl (zoFRAN 4MG INJ) 4 mg Q6H PRN IV NAUSEA/VOMITING 07/21/25 00:00 07/21/25 13:18 DC Pantoprazole Sodium (PROTonix 40MG INJ) 40 mg BID IV 07/26/25 21:00 08/20/25 08:59 08/11/25 09:09 40 MG Pantoprazole Sodium (PROTonix 40MG INJ) 40 mg BID IVP 08/05/25 21:00 08/06/25 08:39 DC 08/05/25 20:25 40 MG Pantoprazole Sodium (PROTonix 40MG INJ) 40 mg DAILY IV 07/21/25 09:00 07/26/25 09:31 DC 07/26/25 08:55 40 MG Pharmacy Profile Note (Pharmacy Communication) 1 each ONCE MISC 07/21/25 15:30 07/21/25 15:16 DC Pharmacy Profile Note (Pharmacy Communication) 1 each ONCE MISC 08/06/25 16:00 08/07/25 07:07 DC Piperacillin Sod/ Tazobactam Sod 50 ml @ 200 mls/hr ONCE STAT IVPB 07/20/25 19:15 07/20/25 19:29 DC 07/20/25 20:32 200 MLS/HR Piperacillin Sod/ Tazobactam Sod (Zosyn 3.375gm+NS 50ml) 3.375 gm Q12H IV 07/21/25 00:00 07/31/25 00:00 DC 07/30/25 23:55 3.375 GM Piperacillin Sod/ Tazobactam Sod (Zosyn 3.375gm+NS 50ml) 3.375 gm Q8H IVPB 07/31/25 11:30 08/10/25 11:29 DC 08/10/25 04:05 3.375 GM Piperacillin Sod/ Tazobactam Sod (Zosyn 3.375gm+NS 50ml) 3.375 gm Q8H IVPB 08/10/25 13:00 08/20/25 12:59 08/11/25 12:39 3.375 GM Potassium Chloride 100 ml @ 100 mls/hr AD PRN IV POTASSIUM PROTOCOL 07/24/25 08:30 08/23/25 08:29 07/30/25 06:23 100 MLS/HR Potassium Chloride (K-Dur/Klor-Con 20meq) 20 meq AD PRN PO POTASSIUM PROTOCOL 07/24/25 08:30 08/23/25 08:29 07/27/25 20:33 20 MEQ Potassium Chloride (KCl 10% Elixir 20meq/15ml) 20 meq AD PRN PO POTASSIUM PROTOCOL 07/24/25 08:30 08/23/25 08:29 07/31/25 08:15 20 MEQ Psyllium Hydrophilic Mucilloid (Metamucil) 1 tbs BID PO 07/26/25 21:00 08/25/25 20:59 08/11/25 09:09 1 TBS Simethicone (Mylicon) 80 mg Q6H6 PO 07/27/25 12:00 08/26/25 11:59 08/11/25 11:28 80 MG Sodium Bicarbonate 150 meq/Sodium Chloride 1,150 ml @ 0 mls/hr Q0M IVP 07/21/25 14:00 07/26/25 09:31 DC Sodium Chloride (NS 50ml) 50 ml AD IV 07/31/25 11:30 07/31/25 11:12 DC Sodium Chloride (Normal Saline Flush) 10 ml Q8H IJ 08/09/25 11:00 09/08/25 10:59 08/11/25 11:50 10 ML Spironolactone (Aldactone 25mg) 25 mg BID PO 07/25/25 21:00 07/26/25 09:01 DC 07/26/25 08:56 25 MG Sucralfate (Carafate) 1 gm ACHS PO 07/29/25 21:00 08/28/25 20:59 08/11/25 11:28 1 GM Thiamine HCl (Vitamin B-1) 100 mg DAILY IVP 07/22/25 21:00 08/21/25 20:59 08/11/25 09:09 100 MG Thiamine HCl 100 mg/Sodium Chloride 50 ml @ 100 mls/hr Q24H IM 07/21/25 15:30 07/21/25 16:25 DC Vancomycin HCl (Vancomycin 1g/ 250ml Kit) 1 gm ONCE STAT IV 07/20/25 21:23 07/20/25 21:26 DC 07/20/25 22:06 1 GM Vasopressin 20 units/Sodium Chloride 100 ml @ 0 mls/hr PROTOCOL IV 07/21/25 00:30 08/03/25 08:27 DC 07/21/25 00:10 9 MLS/HR DIAGNOSTICS / RADIOLOGY: PATIENT: DALLAS BUCHANAN MR#: [id number] : 1970 SEX: F AGE: 55 LOCATION: 4AH ORDER 1337 STATUS: ADM IN REPORT#: [id number] SERVICE 1336 REASON: epigastric pain. not tolerating meals. ORDERING PHYSICIAN: SUSAN GANN MD PROCEDURE: ABD PEL W - CT ABDOMEN/PELVIS W/CONTRAST EXAM: CT Abdomen and Pelvis with IV contrast CLINICAL HISTORY: epigastric pain. not tolerating meals. TECHNIQUE: Axial computed tomography images of the abdomen and pelvis with intravenous contrast. CONTRAST: with intravenous contrast. COMPARISON: Compared with the previous CT dated 07/20 and USG dated 07/29 FINDINGS: LUNG BASES: Grossly stable atelectasis and scarring at the lung bases. LIVER: Unremarkable. GALLBLADDER AND BILE DUCTS: The gallbladder is decompressed with a cholecystostomy tube in situ. PANCREAS: Unremarkable. SPLEEN: The spleen is enlarged in size, measuring 15.2 cm. ADRENAL GLANDS: Unremarkable. KIDNEYS, URETERS, AND BLADDER: No hydronephrosis or nephrolithiasis. No ureteral calculi. The urinary bladder is unremarkable. STOMACH AND BOWEL: The ileostomy site appears unremarkable. Interval resolution of previously seen moderate small bowel enteritis. No obstruction. APPENDIX: No CT evidence for appendicitis. PERITONEUM: Near complete interval resolution of previously seen moderate ascites in the abdomen and pelvis. Collection in the perisplenic and infra-splenic region measuring 6.0 x 6.1 x 8.9 cm. Interval resolution of previously seen pneumoperitoneum. Diffuse mesenteric fat stranding, likely postoperative changes. LYMPH NODES: No lymphadenopathy. REPRODUCTIVE: Unremarkable as visualized. VASCULATURE: No aortic aneurysm. ABDOMINAL WALL AND SOFT TISSUES: Interval resolution of previously seen subcutaneous emphysema in the anterior abdominal wall and left lateral chest wall. Abdominal drain in situ with tip in the pelvis. BONES: No fracture or suspicious osseous abnormality. IMPRESSION: 1. Perisplenic and infrasplenic fluid collection measuring 6.0 x 6.1 x 8.9 cm. 2. Splenomegaly, with spleen measuring 15.2 cm. 3. Cholecystostomy tube in situ with decompressed gallbladder. 4. Abdominal drain in situ with tip in the pelvis. 5. No acute findings in the remainder of the abdomen and pelvis. /[place] DICTATED BY: ELDON MILLER Jr., MD DATE: 08/04/25 7527 ELECTRONICALLY SIGNED BY: ELDON MILLER Jr., MD DATE: 08/04/25 1637 PATIENT: DALLAS BUCHANAN MR#: [id number] : 1970 SEX: F AGE: 55 LOCATION: 4AH ORDER 1524 STATUS: ADM IN REPORT#: [id number] SERVICE 1523 REASON: cholecystitis ORDERING PHYSICIAN: BENEDICTO OBRIEN Jr. PROCEDURE: HIDA PHARM - NM HIDA/HEPATOBILI W/ PHARMACO EXAM: HIDA scan. INDICATION: Severe RUQ Pain to rule out cholecystitis. REFERENCE EXAMINATION: USG July 29, 2025. TECHNIQUE: Sequential images of the abdomen were obtained in the anterior projection after IV administration of 6.0 mCi of Tc99m Mebrofenin. FINDINGS: Tracer activity throughout the liver is homogeneous without focal defects. There is prompt excretion of the pharmaceutical into the bile ducts and into the small bowel, without evidence of obstruction. There is no visualization of the gallbladder at the conclusion of the examination. IMPRESSION: Scintigraphic findings are compatible with acute cholecystitis. /[place] DICTATED BY: ELDON MILLER Jr., MD DATE: 08/01/25 1011 ELECTRONICALLY SIGNED BY: ELDON MILLER Jr., MD DATE: 08/01/25 1011 PATIENT: DALLAS BUCHANAN MR#: [id number] : 1970 SEX: F AGE: 55 LOCATION: 4AH ORDER 10 STATUS: ADM IN REPORT#: [id number] SERVICE 09 REASON: ABD PAIN ORDERING PHYSICIAN: NIKKI MUNOZ NP PROCEDURE: ABD 1VW - ABD 1VW EXAM: CR Abdomen, 1 view. CLINICAL HISTORY: Pain. COMPARISON: None provided. FINDINGS: Dilated small bowel loops are seen in mid abdomen. There is a density in the pelvis which may represent a send drainage catheter. No free air is evident. No abnormal calcification. No aggressive appearing osseous lesion. IMPRESSION: Dilated small bowel loops are seen in mid abdomen. Density in the pelvis which may represent a send drainage catheter. /[place] DICTATED BY: TOBI LEAHY MD DATE: 07/29/25 1033 ELECTRONICALLY SIGNED BY: TOBI LEAHY MD DATE: 07/29/25 1033 PATIENT: DALLAS BUCHANAN MR#: [id number] : 1970 SEX: F AGE: 55 LOCATION: 4AH ORDER 1519 STATUS: ADM IN REPORT#: [id number] SERVICE 15 REASON: Liver cirrhosis ORDERING PHYSICIAN: LISET DOUGLAS MD PROCEDURE: ABDOMEN - US ABDOMINAL COMPLETE EXAM: US Abdomen complete CLINICAL HISTORY: Liver cirrhosis TECHNIQUE: Real-time ultrasound of the abdomen (complete) with image documentation. COMPARISON: None provided. FINDINGS: LIVER: Liver measures 12.3 cm with a heterogeneous coarse echotexture. GALLBLADDER: Gallbladder contains stones and sludge. Gallbladder is distended. COMMON BILE DUCT: No dilation. PANCREAS: Pancreas not well-visualized due to overlying bowel gas KIDNEYS: Normal renal contours. No renal mass or calculus. No hydronephrosis. SPLEEN: Normal in size and echogenicity. No mass identified. AORTA: No aneurysm. IVC: Unremarkable as visualized. MISCELLANEOUS: Small amount of abdominal ascites. IMPRESSION: 1. Cirrhotic-appearing liver. 2. Cholelithiasis and biliary sludge with gallbladder distension. 3. Small volume ascites. /[place] DICTATED BY: CYNTHIA JULIAN MD DATE: 07/29/25 105 ELECTRONICALLY SIGNED BY: CYNTHIA JULIAN MD DATE: 07/29/25 105 PATIENT: DALLAS BUCHANAN MR#: [id number] : 1970 SEX: F AGE: 55 LOCATION: 2BH ORDER 1108 STATUS: ADM IN REPORT#: [id number] SERVICE 1106 REASON: sob ORDERING PHYSICIAN: PREET BOSTON MD PROCEDURE: CXR1VW - CHEST 1VW CHEST 1VW REASON: sob COMPARISON: Study from 07/21/2025 is available. FINDINGS: Single view of the chest was obtained. Lungs are clear. Heart size is normal. There is no pulmonary vascular congestion. There is a right-sided PIC catheter with tip in superior vena cava. There is a nasogastric tube with the tip in the fundus of the stomach. Mediastinum and bony thorax appear unremarkable. IMPRESSION: 1. No acute cardiopulmonary process 2. The support lines are in satisfactory position.. DICTATED BY: GREER FIORE MD DATE: 07/22/251349 ELECTRONICALLY SIGNED BY: GREER FIORE MD DATE: 07/22/251353 PATIENT: DALLAS BUCHANAN MR#: [id number] : 1970 SEX: F AGE: 55 LOCATION: 2BH ORDER STATUS: ADM IN REPORT#: [id number] SERVICE REASON: PICC LINE ORDERING PHYSICIAN: HEATHER LEACH APRN PROCEDURE: CXR1VW - CHEST 1VW EXAM: CR Chest, single view. CLINICAL HISTORY: PICC line COMPARISON: Prior same day chest radiograph. FINDINGS: Right-sided PICC catheter with tip in the cavoatrial junction. Subsegmental atelectasis in the right lower lobe. No evidence of pleural effusion or pneumothorax. The cardiomediastinal silhouette is within normal limits. No acute osseous abnormality. IMPRESSION: Right-sided PICC catheter with tip in the cavoatrial junction. Subsegmental atelectasis in the right lower lobe. No evidence of pleural effusion or pneumothorax. Compared to the prior study, there is interval placement of the right-sided PICC line and interval resolution of the subsegmental atelectasis in the left lower lobe. /[place] DICTATED BY: ELDON MILLER Jr., MD DATE: 07/21/25816 ELECTRONICALLY SIGNED BY: ELDON MILLER Jr., MD DATE: 07/21/25816 PATIENT: DALLAS BUCHANAN MR#: [id number] : 1970 SEX: F AGE: 55 LOCATION: EDH ORDER 14 STATUS: REG [facility] REPORT#: [id number] SERVICE 12 REASON: CHEST PAIN/COUGH ORDERING PHYSICIAN: ALHAJI SHINE NP PROCEDURE: CXR1VW - CHEST 1VW EXAM: XR Chest, 1 View. CLINICAL HISTORY: 55 year old female with chest pain and cough. COMPARISON: None provided. FINDINGS: LUNGS: The lungs demonstrate evidence of atelectasis. PLEURAL SPACES: A small right pleural effusion is present. HEART: The heart size is normal. BONES: No acute osseous abnormality. IMPRESSION: 1. Small right pleural effusion and right lung base atelectasis. /[place] DICTATED BY: EDWIGE LEDESMA MD DATE: 07/20/252046 ELECTRONICALLY SIGNED BY: EDWIGE LEDESMA MD DATE: 07/20/252046 PATIENT: DALLAS BUCHANAN MR#: [id number] : 1970 SEX: F AGE: 55 LOCATION: EDH ORDER 14 STATUS: REG ER REPORT#: [id number] SERVICE 12 REASON: Abdominal Pain ORDERING PHYSICIAN: ALHAJI SHINE NP PROCEDURE: ABD PEL W - CT ABDOMEN/PELVIS W/CONTRAST ADDENDUM REPORT ADDENDUM: Results were shared by telephone at 23:23 pm on 07-20-2025 and acknowledged by Pt nurse Ms. SHIN BOYKIN. /[place] EXAM: CT Abdomen and Pelvis with Intravenous Contrast CLINICAL HISTORY: 55-year-old female with abdominal pain. TECHNIQUE: Axial computed tomography images of the abdomen and pelvis with intravenous contrast. Dose reduction technique was used including one or more of the following: automated exposure control, adjustment of mA and kV according to patient size, and/or iterative reconstruction. CONTRAST: Omnipaque 350, 75 mL COMPARISON: None provided. FINDINGS: LUNG BASES: Atelectasis and scarring at the lung bases. LIVER: Unremarkable. GALLBLADDER AND BILE DUCTS: Tiny gallstone seen. PANCREAS: Unremarkable. SPLEEN: Unremarkable. ADRENAL GLANDS: Unremarkable. KIDNEYS, URETERS, AND BLADDER: Dueñas catheter seen in the bladder lumen. No hydronephrosis or nephrolithiasis. No ureteral calculi. STOMACH AND BOWEL: Edema or loops of small bowel suggesting moderate small bowel enteritis. Free air in the upper abdomen is seen, suggesting perforated bowel. No obstruction. APPENDIX: No CT evidence for appendicitis. PERITONEUM: Moderate ascites in the abdomen and pelvis. No free air under the diaphragm. LYMPH NODES: No lymphadenopathy. REPRODUCTIVE: Unremarkable as visualized. VASCULATURE: No aortic aneurysm. ABDOMINAL WALL AND SOFT TISSUES: There is air in the subcutaneous soft tissue seen anteriorly, suggesting recent postsurgical changes; please correlate with surgical history. BONES: No fracture or suspicious osseous abnormality. IMPRESSION: 1. Moderate small bowel enteritis with free air in the upper abdomen, suggesting perforated bowel versus post surgical changes. No obstruction. 2. Moderate ascites in the abdomen and pelvis. 3. Air in the subcutaneous soft tissue anteriorly, suggesting recent postsurgical changes; please correlate with surgical history. /[place] DICTATED BY: EDWIGE LEDESMA MD DATE: 07/20/25 8820 ELECTRONICALLY SIGNED BY: DATE: EXAM: CT Abdomen and Pelvis with Intravenous Contrast CLINICAL HISTORY: 55-year-old female with abdominal pain. TECHNIQUE: Axial computed tomography images of the abdomen and pelvis with intravenous contrast. Dose reduction technique was used including one or more of the following: automated exposure control, adjustment of mA and kV according to patient size, and/or iterative reconstruction. CONTRAST: Omnipaque 350, 75 mL COMPARISON: None provided. FINDINGS: LUNG BASES: Atelectasis and scarring at the lung bases. LIVER: Unremarkable. GALLBLADDER AND BILE DUCTS: Tiny gallstone seen. PANCREAS: Unremarkable. SPLEEN: Unremarkable. ADRENAL GLANDS: Unremarkable. KIDNEYS, URETERS, AND BLADDER: Dueñas catheter seen in the bladder lumen. No hydronephrosis or nephrolithiasis. No ureteral calculi. STOMACH AND BOWEL: Edema or loops of small bowel suggesting moderate small bowel enteritis. Free air in the upper abdomen is seen, suggesting perforated bowel. No obstruction. APPENDIX: No CT evidence for appendicitis. PERITONEUM: Moderate ascites in the abdomen and pelvis. No free air under the diaphragm. LYMPH NODES: No lymphadenopathy. REPRODUCTIVE: Unremarkable as visualized. VASCULATURE: No aortic aneurysm. ABDOMINAL WALL AND SOFT TISSUES: There is air in the subcutaneous soft tissue seen anteriorly, suggesting recent postsurgical changes; please correlate with surgical history. BONES: No fracture or suspicious osseous abnormality. IMPRESSION: 1. Moderate small bowel enteritis with free air in the upper abdomen, suggesting perforated bowel versus post surgical changes. No obstruction. 2. Moderate ascites in the abdomen and pelvis. 3. Air in the subcutaneous soft tissue anteriorly, suggesting recent postsurgical changes; please correlate with surgical history. /[place] DICTATED BY: EDWIGE LEDESMA MD DATE: 07/20/252317 ELECTRONICALLY SIGNED BY: EDWIGE LEDESMA MD DATE: 07/20/252317 ASSESSMENT: Suspected Bowel Perforation POA Perisplenic and infrasplenic fluid collection with splenomegaly - suspected abscess Hyponatremia Bacterial peritonitis Cholelithiasis Small Bowel Obstruction, Suspected Anastomotic Leak Bilious peritonitis s/p Diagnostic laparoscopy, abdominal washout, drain placement and diverting loop ileostomy creation Atrophic vaginitis hyperkalemia Iron Deficiency anemia Diabetes Mellitus Type 2 POA Acute Kidney Injury POA Septic Shock POA Cirrhosis of liver POA Esophageal Varices Recent Robotic takedown of splenic flexure mobilization, robotic takedown of colovesical fistula with sigmoid colectomy and end-to-end anastomosis surgery PLAN: Bilious peritonitis status post Diagnostic laparoscopy, abdominal washout, drain placement and diverting loop ileostomy creation -Continue close monitoring of the patient -continue physical therapy -Monitor CHRIS drain output -Continues with high output from CHRIS but it is clear serous, most likely related to her ascites from her history of liver cirrhosis -Continue Lactated Ringer's at 75 ml/hr for volume resuscitation and electrolyte replacement -continue Zosyn [day 22] and fluconazole [day 22] -Flexeril 5 mg t.i.d. has been started by the Surgery team. -Probiotics and Fibers have been added for bloating. -Protonix IV increased to twice daily. - Patient has been started on Brandon by general surgery for abdominal pain, and is advised to take Diluadid only for breakthrough pain. - Patient was started on fentanyl patch on 08/09/2020 for pain control. - On 08/11, fentanyl patch dose was increased to 25 mcg. Frequency of Dilaudid was increased from q.4h to q.6h. - HIDA scan positive for acute cholecystitis. Surgery has been made aware. - IR did a Fluoroscopy and ultrasound-guided placement of cholecystotomy tube and cholecystogram on 08/02/2025. -Dr. Sol saw the patient and he recommended 25g of 25% albumin for 3 days. -Gastroenterology is planning to do EGD and they did biopsy from 3 sites. GI said that they will consult radiology to check whether CHRIS drain and cholecystostomy tube are in place. -Surgery wanted to do a CT abdomen and pelvis with IV contrast. CT scan showed perisplenic and infrasplenic fluid collection measuring 6.0 x 6.1 x 8.9 cm, splenomegaly, with spleen measuring 15.2 cm, cholecystostomy tube in situ with decompressed gallbladder, abdominal drain in situ with tip in the pelvis. -GI said that they will consult radiology to check whether CHRIS drain and cholecystostomy tube are in place. -She was assessed for cholecystostomy tube placement in the sleep lab technologist. It showed some stones and the tube was flushed. She underwent drainage of perisplenic fluid collection with drainage catheter insertion. G stain and fluid culture are pending. -We ordered T.bilirubin and we will monitor the output from colostomy tube. -We are also planning to add metoclopramide. Perisplenic and infrasplenic fluid collection with splenomegaly * CT scan showed perisplenic and infrasplenic fluid collection measuring 6.0 x 6.1 x 8.9 cm, splenomegaly, with spleen measuring 15.2 cm * IR drained the perisplenic and intra splenic fluid with placement of drainage catheter. * Pending culture results. * Patient is currently on Zosyn and fluconazole. * Follow up with ID recommendations Bacterial Peritonitis * Post Surgical patient with Bacterial peritonitis positive for ESBL * Culture and sensitivity shows susceptibility to Zosyn, Gentamicin and Meropenem. * Likely secondary to post-operative intraabdominal infection with risk of ongoing contamination. * Currently patient is on Zosyn (Day 22) * For her continuos pain she is started on Fentanyl 25mcg. CHRIS drain culture has beens sent. Cholelithiasis * Patient complained of upper abdominal pain * Ultrasound abdomen showed: Cirrhotic-appearing liver * Cholelithiasis and biliary sludge with gallbladder distension and Small volume ascites. * Hida scan shows acute cholecystitis. * Per Surgery: IR to be consulted for cholecystostomy tube placement. * IR did a Fluoroscopy and ultrasound-guided placement of cholecystotomy tube and cholecystogram on 08/02/2025. * IR evaluated patient in the sleep lab technologist for cholecystostomy tube placement. Patient was found to have normally positioned tube with some stones for which the tube was flushed.. Small Bowel Obstruction (Resolved) * Patient complaints of abdominal pain which is 9/10 on intensity * Abdominal Xray showed: Dilated small bowel loops are seen in mid abdomen * Perform Serial abdominal exams * Pain management(avoid excess opioids if ileus is suspected) * Evaluate drain, bowel status * Monitor for resolution vs progression of Ileus/obstruction. 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 - CT abdominal pelvis w/contrast done on 07/20/2025 showed Free air in the upper abdomen is seen, suggesting perforated bowel vs post surgical changes. No obstruction. -underwent Diagnostic laparoscopy, abdominal washout, drain placement and diverting loop ileostomy creation for biliary peritonitis Atrophic vaginitis * Her bleeding is resolved * We did a pelvic examination. * Ordered topical estrogen. * Urinalysis showed cloudy urine, protein 30, trace occult blood, RBC is 11 to 25, WBC is 26 to 50. hyperkalemia * Today his potassium is 4.4 * Will repeat her labs tomorrow. Iron Deficiency anemia * Hemoglobin today is 8.8. * Iron sucrose (venofer) was ordered. * Anemia panel has been ordered. Results showed Iron 24L, %sat 16.3 and TIBC 147L. 07/30/25 * Recommend trending Hgb and transfuse as needed to goal Hgb >7.25 * Iron level is 20L, % saturation 11.9, TIBC 167L, Ferritin 129. 9 Septic Shock -resolved -Her WBC is 5.6. 08/10/2025 -Her WBC during the presentation was 21.2 -lactic acid is 1.5 on 07/31/2025 -blood and urine culture results are negative Acute Kidney Injury Resolved -Creatinine improved from 1.6-1.1-0.7-0.6-0.6-0.6-0.6-0.6-0.5-0.6-0.6-0.5-0.5-0.3-0.6-0.4-0.6 08/09/2025 -Initial FeNA is 0.1 %, probably secondary to dehydration and NSAIDs overuse. -initial Urine sodium is < 13 and urine creatinine is 132.17. -Avoid nephrotoxic agents, eg. NSAIDS. -Weight patient daily. -Monitor intake and output. -Ordered urinalysis Cirrhosis of liver -Patient has a past history of cirrhosis of liver. - Liver functions are within normal limits. AST 20, ALT 9 and ALP 67. - Avoid NSAIDs and high dose acetaminophen. -Maintain appropriate volume of the patient. -Patient has been started on Spironolactone 25 mg b.i.d. and Lasix 20 mg once daily. 07/25/25 -Albumin was given for the hypotension. -Patients family is requesting that Dr. Sol be involved in the patients care. Supportive measures -Maintain IV fluids, correct electrolytes -Serial abdominal exams -Spring Maker on avoidance of NSAIDS and other related triggers. -Monitor Vitals and perform morning labs regularly Continue GI prophylaxis with Pantop Continue DVT prophylaxis with SCDs, we will avoid heparin due to history of allergies to porcine, we will coordinate with surgery consult on initiation of other anticoagulants ATTESTATION BY PHYSICIAN I have seen and examined the patient. I reviewed the documentation, medical decision making, and treatment plan as noted by the resident provider above. I agree with the findings and plan of care. AYAKA BARR MD, MUHAMMAD H MD Aug 11, 2025 14:48
--- NOTE | 2025-08-11 15:02 | PN ---
INFECTIOUS DISEASE PROGRESS NOTE Date of Service: Aug 11, 2025 SUBJECTIVE: Patient is awake, alert and oriented x 3. Patient is s/p CT-guided drainage catheter placement to the left Perisplenic abscess on 08/09/2025. Draining small amount of bloody output No growth reported yet on the culture results for the past 24-48 hours. Patient remains afebrile, temperature is 97.5. Will continue on Zosyn and fluconazole. PHYSICAL EXAM EYES: Anicteric. Pupils equal and reactive. HENT: No oral thrush seen, moist Oral mucosa. NECK: Supple, no JVD or thyromegaly. LUNGS: Good air entry. No rales, no rhonchi. CARDIOVASCULAR: S1, S2 regular. No murmur heard. ABDOMEN: Soft, non tender, bowel sounds present, no organomegaly. Left CHRIS drain. Left Perisplenic abscess percutaneous drainage catheter. Right ileostomy. Right cholecystostomy tube. CENTRAL NERVOUS SYSTEM: Awake, alert, oriented x 3. SKIN: No rashes, no swelling. LYMPHATICS: No peripheral lymphadenopathy. MUSCULOSKELETAL: No joint swelling, erythema or tenderness. EXTREMITIES: No cyanosis or clubbing. BACK: No deformity, no pressure ulcer. GENITOURINARY: No dysuria or hematuria. Vital Sign (Last 12 Hours) 08/11/25 08/11/25 08/11/25 08/11/25 03:37 08:00 08:00 12:00 Temp 98.2 97.9 97.5 Pulse 91 78 82 Resp 18 20 16 B/P (MAP) 99/51 88/62 96/60 Pulse Ox 96 96 99 97 O2 Delivery Room Air Room Air* Room Air Room Air O2 Flow Rate 0 FiO2 21 21 Intake & Output (last 24hrs) 08/10/25 08/10/25 08/11/25 15:00 23:00 07:00 Intake Total 1760 ml 750.0 ml Output Total 0 ml 1600 ml 1590 ml Balance 0 ml 160 ml -840.0 ml LABS: Laboratory: Test 08/11/25 11:44 08/11/25 02:06 08/10/25 02:15 Range/Units Whole Blood Glucose 123 H 70-110 MG/DL White Blood Count 5.1 4.8-10.8 K/uL Red Blood Count 3.00 L 4.00-5.50 MIL/uL Hemoglobin 8.8 L 12.0-16.0 g/dL Hematocrit 27.4 L 36-48 % Mean Corpuscular Volume 91.3 79-99 fL Mean Corpuscular Hemoglobin 29.3 27.0-33.0 pg Mean Corpuscular Hemoglobin Concent 32.1 32.0-36.0 g/dL Red Cell Distribution Width 17.4 H 11.0-15.5 % Platelet Count 182 130-400 K/uL Mean Platelet Volume 10.0 7.5-10.5 fL Nucleated Red Blood Cells 0.0 0.0-0.19 % Prothrombin Time 13.8 H 9.6-11.6 SEC Prothromb Time International Ratio 1.34 H 0.85-1.15 Activated Partial Thromboplast Time 32.2 26.3-35.5 SEC Sodium Level 135 L 136-145 mmol/L Potassium Level 4.4 3.5-5.1 mmol/L Chloride Level 104 101-111 mmol/L Carbon Dioxide Level 22 21-32 mmol/L Blood Urea Nitrogen 16 7-18 mg/dL Creatinine 0.6 0.5-1.0 mg/dL Glomerular Filtration Rate Calc 105 >90 mL/min Random Glucose 112 H 70-105 mg/dL Total Calcium 8.6 8.5-10.1 mg/dL Phosphorus Level 2.7 2.5-4.9 mg/dL Magnesium Level 1.90 1.80-2.40 mg/dL Total Bilirubin 0.5 0.2-1.0 mg/dL Aspartate Amino Transf (AST/SGOT) 34 10-37 U/L Alanine Aminotransferase (ALT/SGPT) 14 12-78 U/L Alkaline Phosphatase 121 50-136 U/L Total Protein 7.2 6.0-8.3 g/dL Albumin 2.5 L 3.5-5.0 g/dL Urine Color LIGHT-YELLOW YELLOW Urine Appearance CLEAR CLEAR Urine pH 6.0 5.0-8.0 Urine Specific [place] 1.018 1.001-1.031 Urine Protein NEGATIVE NEGATIVE mg/dL Urine Glucose (UA) NEGATIVE NEGATIVE mg/dL Urine Ketones NEGATIVE NEGATIVE mg/dL Urine Occult Blood NEGATIVE NEGATIVE Urine Nitrate NEGATIVE NEGATIVE Urine Bilirubin NEGATIVE NEGATIVE mg/dL Urine Urobilinogen 0.2 0.2-1.0 mg/dL Urine Leukocyte Esterase NEGATIVE NEGATIVE Regino/uL ASSESSMENT: Acute cholecystitis, s/p cholecystostomy tube placement on 08/02/2025. Concern for cholecystostomy tube dislodgement status post cholecystogram with findings of multiple gallstones on 08/09/2025. Perisplenic abscess, s/p CT-guided drainage placement. Persistent abdominal pain, s/p EGD with findings acute gastritis.. Hypoxic respiratory failure requiring oxygen support, resolved. Septic shock. Generalized peritonitis with ESBL and E coli infection. Infection with multidrug resistant organism. Hypoalbuminemia. Suspected bowel perforation, s/p diagnostic laparoscopy, abdominal washout, ileostomy creation and CHRIS drain placement on 07/21/2025. Diabetes mellitus. Recent colovesical fistula repair with sigmoid colon resection and anastomosis on 07/09/2025 PLAN: Continue Zosyn. Continue fluconazole. Continue pain management. Avoid nephrotoxic medications. Continue GI prophylaxis. Continue antidiabetics. Continue nutritional support, on clear liquids and PPN. We will follow up on the perisplenic abscess drainage cultures. This case was reviewed and discussed with my supervising physician Dr. Roger and the above assessment and plan was formulated and agreed upon. ATTESTATION BY PHYSICIAN I have seen and examined the patient. I reviewed the documentation, medical decision making, and treatment plan as noted by the mid-level provider above. I agree with the findings and plan of care. AMIE ROGER MD, [facility] Aug 11, 2025 15:02
[2025-08-11 20:00] VITALS: BP 112/65; PULSE 92; RESP 20; TEMP 97.8
[2025-08-11 22:30] VITALS: O2SAT 95
[2025-08-12] VITALS (8 sets, daily range): BP systolic 94–112; BP diastolic 55–70; PULSE 82–98; RESP 18–20; TEMP 97.8–100.1; O2SAT 95–96
[2025-08-12 04:39] LABS: NUCLEATED RED BLOOD CELLS 0.0 % (0.0-0.19); PLATELET COUNT (AUTO) 195.0 K/uL (130-400); RED BLOOD CELL COUNT(AUTO) 2.84 MIL/uL (4.00-5.50); RED CELL DISTRIBUTION WIDTH 17.6 % (11.0-15.5); WHITE BLOOD COUNT (AUTO) 4.6 K/uL (4.8-10.8)
[2025-08-12 04:55] LABS: CREATININE 0.7 mg/dL (0.5-1.0); GLOMERULAR FILTR. RATE CALC 101.0 mL/min (>90); GLUCOSE,RANDOM 169.0 mg/dL (70-105); SODIUM SERUM 135.0 mmol/L (136-145); UREA NITROGEN, BLOOD 15.0 mg/dL (7-18)
--- NOTE | 2025-08-12 13:14 | PN ---
NEPHROLOGY PROGRESS NOTE Date/Time Patient Seen: Aug 12, 2025 SUBJECTIVE: This is a 55-year-old female with a past medical history of diabetes mellitus type 2, liver cirrhosis, esophageal varices. He presented to the emergency room with chief complain of abdominal pain. CT of the abdomen showed moderate small bowel enteritis with free air in the upper abdomen, suggesting perforated bowel versus post surgical changes. No obst ruction. S/p diagnostic laparoscopy, abdominal washout, drain placement and diverting loop ileostomy creation with CHRIS drain 10 Kosovan on 07/21 S/P cholecystotomy tube on 08/02 S/P Cholecystogram showed cholecystotomy tube in satisfactory position with multiple large gallstones seen in the gallbladder lumen on 08/09 S/P successful CT guided drainage of left infrasplenic collection on 08/09 Diet is being advanced as tolerated She was noted to have elevated BUN/creatinine We are consulted for renal failure Renal function and electrolytes are stable. She was seen in the medial floor, in no acute distress No family at the bedside REVIEW OF SYSTEMS: GENERAL: Positive for nausea NEUROLOGIC: Negative for any blurry vision, blind spots, double vision, facial asymmetry, dysphagia, dysarthria, hemiparesis, hemisensory deficits, vertigo, at axia. HEENT: Negative for any head trauma, neck trauma, neck stiffness, photophobia, phonophobia, sinusitis, rhinitis. CARDIAC: Negative for any chest pain, dyspnea on exertion, paroxysmal nocturnal dyspnea, peripheral edema. PULMONARY: Negative for any shortness of breath, wheezing, COPD, or TB exposure. GASTROINTESTINAL: Negative for any abdominal pain, nausea, vomiting, bright red blood per rectum, melena. GENITOURINARY: Negative for any dysuria, hematuria, incontinence. INTEGUMENTARY: Negative for any rashes, cuts, insect bites. RHEUMATOLOGIC: Negative for any joint pains, photosensitive rashes, history of vasculitis or kidney problems. HEMATOLOGIC: Negative for any abnormal bruising, frequent infections or bleedin g. Vital Signs (last 8hr) Date Time Temp Pulse Resp B/P (MAP) Pulse Ox O2 Delivery O2 Flow Rate FiO2 08/12/25 13:01 95 Room Air* 0 21 08/12/25 11:59 97.9 83 19 100/65 96 Room Air 08/12/25 08:03 97.9 88 19 99/55 97 Room Air PHYSICAL EXAM: GENERAL: Alert and oriented x 3. No acute distress. Well-nourished. EYES: EOMI. Anicteric. HENT: Moist mucous membranes. No scleral icterus. No cervical lymphadenopathy. LUNGS: Clear to auscultation bilaterally. No accessory muscle use. CARDIOVASCULAR: Regular rate and rhythm. No murmur. No JVD. ABDOMEN: Soft, non-tender and non-distended. No palpable masses. EXTREMITIES: No edema. Non-tender SKIN: No rashes or lesions. Warm. NEUROLOGIC: No focal neurological deficits. CN II-XII grossly intact, but not individually tested. PSYCHIATRIC: Cooperative. Appropriate mood and affect. Current Medications Medications (Trade) Dose Ordered Sig/Gregory Route Start Time Stop Time Status Last Admin Dose Admin Albumin Human 100 ml @ 0 mls/hr ONCE IV 07/25/25 12:00 07/26/25 11:59 DC 07/25/25 13:43 100 MLS/HR Cyclobenzaprine HCl (Cyclobenzaprine HCl) 5 mg TID PO 07/25/25 14:00 07/26/25 14:00 DC 07/26/25 14:19 5 MG Fluconazole/ Sodium Chloride (DiFLUCan 200 MG/ NS 100 ML) 200 mg Q24H IVPB 07/21/25 21:00 08/20/25 20:59 07/25/25 20:47 200 MG Furosemide (LASix 20MG TAB) 20 mg DAILY PO 07/25/25 11:00 08/24/25 10:59 07/26/25 08:56 20 MG Insulin Human Regular (humuLIN R 100 UNIT/ML 3ML) INSULIN SLIDING SCAL... ACHS SQ 07/21/25 07:30 08/20/25 07:29 07/22/25 20:40 3 UNIT Lactated Ringer's 1,000 ml @ 75 mls/hr [id number] IV 07/21/25 00:00 07/21/25 13:17 DC 07/21/25 02:57 75 MLS/HR Lactated Ringer's 1,000 ml @ 75 mls/hr [id number] IV 07/21/25 13:30 07/24/25 11:09 DC 07/24/25 09:27 75 MLS/HR Lactobacillus Rhamnosus ([facility] [employer]) 1 each DAILY20 PO 07/26/25 20:00 08/25/25 19:59 Metronidazole/ Sodium Chloride (flaGYL) 500 mg Q8H IV 07/21/25 14:00 07/21/25 13:40 DC Norepinephrine 250 ml @ 0 mls/hr PROTOCOL IV 07/20/25 23:30 08/19/25 23:29 07/21/25 10:56 18.45 MLS/HR Pantoprazole Sodium (PROTonix 40MG INJ) 40 mg BID IV 07/26/25 21:00 08/20/25 08:59 Pantoprazole Sodium (PROTonix 40MG INJ) 40 mg DAILY IV 07/21/25 09:00 07/26/25 09:31 DC 07/26/25 08:55 40 MG Pharmacy Profile Note (Pharmacy Communication) 1 each ONCE MISC 07/21/25 15:30 07/21/25 15:16 DC Piperacillin Sod/ Tazobactam Sod 50 ml @ 200 mls/hr ONCE STAT IVPB 07/20/25 19:15 07/20/25 19:29 DC 07/20/25 20:32 200 MLS/HR Piperacillin Sod/ Tazobactam Sod (Zosyn 3.375gm+NS 50ml) 3.375 gm Q12H IV 07/21/25 00:00 07/31/25 00:00 07/26/25 12:10 3.375 GM Psyllium Hydrophilic Mucilloid (Metamucil) 1 tbs BID PO 07/26/25 21:00 08/25/25 20:59 Sodium Bicarbonate 150 meq/Sodium Chloride 1,150 ml @ 0 mls/hr Q0M IVP 07/21/25 14:00 07/26/25 09:31 DC Spironolactone (Aldactone 25mg) 25 mg BID PO 07/25/25 21:00 07/26/25 09:01 DC 07/26/25 08:56 25 MG Thiamine HCl (Vitamin B-1) 100 mg DAILY IVP 07/22/25 21:00 08/21/25 20:59 07/26/25 08:55 100 MG Thiamine HCl 100 mg/Sodium Chloride 50 ml @ 100 mls/hr Q24H IM 07/21/25 15:30 07/21/25 16:25 DC Vancomycin HCl (Vancomycin 1g/ 250ml Kit) 1 gm ONCE STAT IV 07/20/25 21:23 07/20/25 21:26 DC 07/20/25 22:06 1 GM Vasopressin 20 units/Sodium Chloride 100 ml @ 0 mls/hr PROTOCOL IV 07/21/25 00:30 08/20/25 00:29 07/21/25 00:10 9 MLS/HR LABORATORY: [ ] Hematology Labs: Test 08/12/25 04:14 Range/Units White Blood Count 4.6 L 4.8-10.8 K/uL Red Blood Count 2.84 L 4.00-5.50 MIL/uL Hemoglobin 8.3 L 12.0-16.0 g/dL Hematocrit 26.5 L 36-48 % Mean Corpuscular Volume 93.3 79-99 fL Mean Corpuscular Hemoglobin 29.2 27.0-33.0 pg Mean Corpuscular Hemoglobin Concent 31.3 L 32.0-36.0 g/dL Red Cell Distribution Width 17.6 H 11.0-15.5 % Platelet Count 195 130-400 K/uL Mean Platelet Volume 10.0 7.5-10.5 fL Nucleated Red Blood Cells 0.0 0.0-0.19 % Chemistry Labs: Test 08/12/25 11:15 08/12/25 04:14 08/11/25 02:06 Range/Units Whole Blood Glucose 187 H 70-110 MG/DL Sodium Level 135 L 136-145 mmol/L Potassium Level 3.8 3.5-5.1 mmol/L Chloride Level 103 101-111 mmol/L Carbon Dioxide Level 21 21-32 mmol/L Blood Urea Nitrogen 15 7-18 mg/dL Creatinine 0.7 0.5-1.0 mg/dL Glomerular Filtration Rate Calc 101 >90 mL/min Random Glucose 169 H 70-105 mg/dL Total Calcium 8.4 L 8.5-10.1 mg/dL Phosphorus Level 2.7 2.5-4.9 mg/dL Magnesium Level 1.90 1.80-2.40 mg/dL Total Bilirubin 0.5 0.2-1.0 mg/dL Aspartate Amino Transf (AST/SGOT) 34 10-37 U/L Alanine Aminotransferase (ALT/SGPT) 14 12-78 U/L Alkaline Phosphatase 121 50-136 U/L Total Protein 7.2 6.0-8.3 g/dL Albumin 2.5 L 3.5-5.0 g/dL Coagulation Labs: Test 08/11/25 02:06 Range/Units Prothrombin Time 13.8 H 9.6-11.6 SEC Prothromb Time International Ratio 1.34 H 0.85-1.15 Activated Partial Thromboplast Time 32.2 26.3-35.5 SEC DIAGNOSTICS / RADIOLOGY: [facility] [address] [place] [address] IMAGING REPORT Signed PATIENT: DALLAS BUCHANAN MR#: [id number] : 1970 SEX: F AGE: 55 LOCATION: [facility] ORDER 1 STATUS: ADM IN REPORT#: [id number] SERVICE 0 REASON: picc line placement ORDERING PHYSICIAN: AYAKA BARR MD PROCEDURE: CXR1VW - CHEST 1VW EXAM: CR Chest, single view. CLINICAL HISTORY: PICC line placement. COMPARISON: Prior chest radiograph dated July 22, 2025 FINDINGS: Left-sided PICC line placement with tip in the region of the superior vena cava. Mild cardiomegaly. An ill-defined soft tissue in the superior mediastinum possibility of aortic arch aneurysm, is not excluded. The lungs show no infiltrate or other acute findings. No pleural effusion or pneumothorax. No acute osseous abnormality. IMPRESSION: Left-sided PICC line placement with tip in the region of the superior vena cava. Mild cardiomegaly. An ill-defined soft tissue in the superior mediastinum possibility of aortic arch aneurysm, is not excluded. May consider further evaluation with contrast-enhanced CT thorax. Compared to the prior study, there is no interval resolution of the subsegmental atelectasis in the right lower lobe, interval removal of the nasogastric tube, and interval placement of the left-sided PICC catheter. /[place] DICTATED BY: ELDON MILLER Jr., MD DATE: 08/11/25824 ELECTRONICALLY SIGNED BY: ELDON MILLER Jr., MD DATE: 08/11/25824 PATIENT: DALLAS BUCHANAN MR#: [id number] : 1970 SEX: F AGE: 55 LOCATION: [facility] ORDER 1544 STATUS: ADM IN REPORT#: [id number] SERVICE 08 REASON: Aspiration of perisplenic fluid noted on CT ORDERING PHYSICIAN: BENEDICTO OBRIEN Jr. PROCEDURE: GUID NDL - CT GUIDE NDL PLCMT IR CT GUIDE NDL PLCMT IR HISTORY: Aspiration of perisplenic fluid noted on CT infrasplenic fluid collection drainage . TECHNIQUE: Images from prior studies reviewed. Informed consent was obtained after explaining the procedure and potential complications to the patient. Time out performed. The patient was placed prone on the CT couch and images of the abdomen obtained. The left flank draped in sterile fashion. Local anesthesia was applied and under CT-fluoroscopy guidance, a 19-gauge needle introducer was advanced through the abdominal wall and into a left infrasplenic fluid collection in the left hemiabdomen. Then, over a wire the tract was dilated to accommodate a 8 Kosovan APDL catheter, which was left coiled within the collection. Completion images reveal no hemorrhage. Patient tolerated the procedure well and was discharged from the department in good condition. Approximately 10 cc of fluid mL of fluid sent for cultures. Conscious sedation provided by a registered nurse who monitored the patient's vital signs throughout and after the procedure. MEDICATIONS: Fentanyl 100 mcg IV and Versed 2 mg IV IMPRESSION: Successful CT guided drainage of left infrasplenic collection. DICTATED BY: GREER FIORE MD DATE: 08/10/25927 ELECTRONICALLY SIGNED BY: GREER FIORE MD DATE: 08/10/25937 PATIENT: DALLAS BUCHANAN MR#: [id number] : 1970 SEX: F AGE: 55 LOCATION: [facility] ORDER 36 STATUS: ADM IN REPORT#: [id number] SERVICE 35 REASON: epigastric pain. not tolerating meals. ORDERING PHYSICIAN: SUSAN JHAVERI MD PROCEDURE: ABD PEL W - CT ABDOMEN/PELVIS W/CONTRAST EXAM: CT Abdomen and Pelvis with IV contrast CLINICAL HISTORY: epigastric pain. not tolerating meals. TECHNIQUE: Axial computed tomography images of the abdomen and pelvis with intravenous contrast. CONTRAST: with intravenous contrast. COMPARISON: Compared with the previous CT dated 07/20 and USG dated 07/29 FINDINGS: LUNG BASES: Grossly stable atelectasis and scarring at the lung bases. LIVER: Unremarkable. GALLBLADDER AND BILE DUCTS: The gallbladder is decompressed with a cholecystostomy tube in situ. PANCREAS: Unremarkable. SPLEEN: The spleen is enlarged in size, measuring 15.2 cm. ADRENAL GLANDS: Unremarkable. KIDNEYS, URETERS, AND BLADDER: No hydronephrosis or nephrolithiasis. No ureteral calculi. The urinary bladder is unremarkable. STOMACH AND BOWEL: The ileostomy site appears unremarkable. Interval resolution of previously seen moderate small bowel enteritis. No obstruction. APPENDIX: No CT evidence for appendicitis. PERITONEUM: Near complete interval resolution of previously seen moderate ascites in the abdomen and pelvis. Collection in the perisplenic and infra-splenic region measuring 6.0 x 6.1 x 8.9 cm. Interval resolution of previously seen pneumoperitoneum. Diffuse mesenteric fat stranding, likely postoperative changes. LYMPH NODES: No lymphadenopathy. REPRODUCTIVE: Unremarkable as visualized. VASCULATURE: No aortic aneurysm. ABDOMINAL WALL AND SOFT TISSUES: Interval resolution of previously seen subcutaneous emphysema in the anterior abdominal wall and left lateral chest wall. Abdominal drain in situ with tip in the pelvis. BONES: No fracture or suspicious osseous abnormality. IMPRESSION: 1. Perisplenic and infrasplenic fluid collection measuring 6.0 x 6.1 x 8.9 cm. 2. Splenomegaly, with spleen measuring 15.2 cm. 3. Cholecystostomy tube in situ with decompressed gallbladder. 4. Abdominal drain in situ with tip in the pelvis. 5. No acute findings in the remainder of the abdomen and pelvis. /[place] DICTATED BY: ELDON MILLER Jr., MD DATE: 08/04/251636 ELECTRONICALLY SIGNED BY: ELDON MILLER Jr., MD DATE: 08/04/251636 PATIENT: DALLAS BUCHANAN MR#: [id number] : 1970 SEX: F AGE: 55 LOCATION: [facility] ORDER 1524 STATUS: ADM IN REPORT#: [id number] SERVICE 1523 REASON: cholecystitis ORDERING PHYSICIAN: BENEDICTO OBRIEN Jr. PROCEDURE: HIDA PHARM - NM HIDA/HEPATOBILI W/ PHARMACO EXAM: HIDA scan. INDICATION: Severe RUQ Pain to rule out cholecystitis. REFERENCE EXAMINATION: USG July 29, 2025. TECHNIQUE: Sequential images of the abdomen were obtained in the anterior projection after IV administration of 6.0 mCi of Tc99m Mebrofenin. FINDINGS: Tracer activity throughout the liver is homogeneous without focal defects. There is prompt excretion of the pharmaceutical into the bile ducts and into the small bowel, without evidence of obstruction. There is no visualization of the gallbladder at the conclusion of the examination. IMPRESSION: Scintigraphic findings are compatible with acute cholecystitis. /[place] DICTATED BY: ELDON MILLER Jr., MD DATE: 08/01/25 101 ELECTRONICALLY SIGNED BY: ELDON MILLER Jr., MD DATE: 08/01/25 101 PATIENT: DALLAS BUCHANAN MR#: [id number] : 1970 SEX: F AGE: 55 LOCATION: [facility] ORDER 10 STATUS: ADM IN REPORT#: [id number] SERVICE 09 REASON: ABD PAIN ORDERING PHYSICIAN: NIKKI MUNOZ NP PROCEDURE: ABD 1VW - ABD 1VW EXAM: CR Abdomen, 1 view. CLINICAL HISTORY: Pain. COMPARISON: None provided. FINDINGS: Dilated small bowel loops are seen in mid abdomen. There is a density in the pelvis which may represent a send drainage catheter. No free air is evident. No abnormal calcification. No aggressive appearing osseous lesion. IMPRESSION: Dilated small bowel loops are seen in mid abdomen. Density in the pelvis which may represent a send drainage catheter. /[place] DICTATED BY: TOBI LEAHY MD DATE: 07/29/25 1033 ELECTRONICALLY SIGNED BY: TOBI LEAHY MD DATE: 07/29/25 103 PATIENT: DALLAS BUCHANAN MR#: [id number] : 1970 SEX: F AGE: 55 LOCATION: [facility] ORDER 1519 STATUS: ADM IN REPORT#: [id number] SERVICE 151 REASON: Liver cirrhosis ORDERING PHYSICIAN: LISET DOUGLAS MD PROCEDURE: ABDOMEN - US ABDOMINAL COMPLETE EXAM: US Abdomen complete CLINICAL HISTORY: Liver cirrhosis TECHNIQUE: Real-time ultrasound of the abdomen (complete) with image documentation. COMPARISON: None provided. FINDINGS: LIVER: Liver measures 12.3 cm with a heterogeneous coarse echotexture. GALLBLADDER: Gallbladder contains stones and sludge. Gallbladder is distended. COMMON BILE DUCT: No dilation. PANCREAS: Pancreas not well-visualized due to overlying bowel gas KIDNEYS: Normal renal contours. No renal mass or calculus. No hydronephrosis. SPLEEN: Normal in size and echogenicity. No mass identified. AORTA: No aneurysm. IVC: Unremarkable as visualized. MISCELLANEOUS: Small amount of abdominal ascites. IMPRESSION: 1. Cirrhotic-appearing liver. 2. Cholelithiasis and biliary sludge with gallbladder distension. 3. Small volume ascites. /[place] DICTATED BY: CYNTHIA JULIAN MD DATE: 07/29/25 105 ELECTRONICALLY SIGNED BY: CYNTHIA JULIAN MD DATE: 07/29/25 105 PATIENT: DALLAS BUCHANAN MR#: [id number] : 1970 SEX: F AGE: 55 LOCATION: [facility] ORDER 1108 STATUS: ADM IN REPORT#: [id number] SERVICE 1106 REASON: sob ORDERING PHYSICIAN: PREET BOSTON MD PROCEDURE: CXR1VW - CHEST 1VW CHEST 1VW REASON: sob COMPARISON: Study from 07/21/2025 is available. FINDINGS: Single view of the chest was obtained. Lungs are clear. Heart size is normal. There is no pulmonary vascular congestion. There is a right-sided PIC catheter with tip in superior vena cava. There is a nasogastric tube with the tip in the fundus of the stomach. Mediastinum and bony thorax appear unremarkable. IMPRESSION: 1. No acute cardiopulmonary process 2. The support lines are in satisfactory position.. DICTATED BY: GREER FIORE MD DATE: 07/22/251349 ELECTRONICALLY SIGNED BY: GREER FIORE MD DATE: 07/22/251353 PATIENT: DALLAS BUCHANAN MR#: [id number] : 1970 SEX: F AGE: 55 LOCATION: [facility] ORDER STATUS: ADM IN REPORT#: [id number] SERVICE REASON: PICC LINE ORDERING PHYSICIAN: HEATHER LEACH APRN PROCEDURE: CXR1VW - CHEST 1VW EXAM: CR Chest, single view. CLINICAL HISTORY: PICC line COMPARISON: Prior same day chest radiograph. FINDINGS: Right-sided PICC catheter with tip in the cavoatrial junction. Subsegmental atelectasis in the right lower lobe. No evidence of pleural effusion or pneumothorax. The cardiomediastinal silhouette is within normal limits. No acute osseous abnormality. IMPRESSION: Right-sided PICC catheter with tip in the cavoatrial junction. Subsegmental atelectasis in the right lower lobe. No evidence of pleural effusion or pneumothorax. Compared to the prior study, there is interval placement of the right-sided PICC line and interval resolution of the subsegmental atelectasis in the left lower lobe. /[place] DICTATED BY: ELDON MILLER Jr., MD DATE: 07/21/25816 ELECTRONICALLY SIGNED BY: ELDON MILLER Jr., MD DATE: 07/21/25816 PATIENT: DALLAS BUCHANAN MR#: [id number] : 1970 SEX: F AGE: 55 LOCATION: [facility] ORDER 14 STATUS: REG ER [facility] REPORT#: [id number] SERVICE 12 REASON: CHEST PAIN/COUGH ORDERING PHYSICIAN: ALHAJI SHINE NP PROCEDURE: CXR1VW - CHEST 1VW EXAM: XR Chest, 1 View. CLINICAL HISTORY: 55 year old female with chest pain and cough. COMPARISON: None provided. FINDINGS: LUNGS: The lungs demonstrate evidence of atelectasis. PLEURAL SPACES: A small right pleural effusion is present. HEART: The heart size is normal. BONES: No acute osseous abnormality. IMPRESSION: 1. Small right pleural effusion and right lung base atelectasis. /[place] DICTATED BY: EDWIGE LEDESMA MD DATE: 07/20/252046 ELECTRONICALLY SIGNED BY: EDWGIE LEDESMA MD DATE: 07/20/252046 PATIENT: DALLAS BUCHANAN MR#: [id number] : 1970 SEX: F AGE: 55 LOCATION: [facility] ORDER 14 STATUS: REG ER REPORT#: [id number] SERVICE 12 REASON: Abdominal Pain ORDERING PHYSICIAN: ALHAJI SHINE NP PROCEDURE: ABD PEL W - CT ABDOMEN/PELVIS W/CONTRAST ADDENDUM REPORT ADDENDUM: Results were shared by telephone at 23:23 pm on 07-20-2025 and acknowledged by Pt nurse Ms. SHIN BOYKIN. /[place] EXAM: CT Abdomen and Pelvis with Intravenous Contrast CLINICAL HISTORY: 55-year-old female with abdominal pain. TECHNIQUE: Axial computed tomography images of the abdomen and pelvis with intravenous contrast. Dose reduction technique was used including one or more of the following: automated exposure control, adjustment of mA and kV according to patient size, and/or iterative reconstruction. CONTRAST: Omnipaque 350, 75 mL COMPARISON: None provided. FINDINGS: LUNG BASES: Atelectasis and scarring at the lung bases. LIVER: Unremarkable. GALLBLADDER AND BILE DUCTS: Tiny gallstone seen. PANCREAS: Unremarkable. SPLEEN: Unremarkable. ADRENAL GLANDS: Unremarkable. KIDNEYS, URETERS, AND BLADDER: Dueñas catheter seen in the bladder lumen. No hydronephrosis or nephrolithiasis. No ureteral calculi. STOMACH AND BOWEL: Edema or loops of small bowel suggesting moderate small bowel enteritis. Free air in the upper abdomen is seen, suggesting perforated bowel. No obstruction. APPENDIX: No CT evidence for appendicitis. PERITONEUM: Moderate ascites in the abdomen and pelvis. No free air under the diaphragm. LYMPH NODES: No lymphadenopathy. REPRODUCTIVE: Unremarkable as visualized. VASCULATURE: No aortic aneurysm. ABDOMINAL WALL AND SOFT TISSUES: There is air in the subcutaneous soft tissue seen anteriorly, suggesting recent postsurgical changes; please correlate with surgical history. BONES: No fracture or suspicious osseous abnormality. IMPRESSION: 1. Moderate small bowel enteritis with free air in the upper abdomen, suggesting perforated bowel versus post surgical changes. No obstruction. 2. Moderate ascites in the abdomen and pelvis. 3. Air in the subcutaneous soft tissue anteriorly, suggesting recent postsurgical changes; please correlate with surgical history. /[place] DICTATED BY: EDWIGE LEDESMA MD DATE: 07/20/25 2337 ELECTRONICALLY SIGNED BY: DATE: EXAM: CT Abdomen and Pelvis with Intravenous Contrast CLINICAL HISTORY: 55-year-old female with abdominal pain. TECHNIQUE: Axial computed tomography images of the abdomen and pelvis with intravenous contrast. Dose reduction technique was used including one or more of the following: automated exposure control, adjustment of mA and kV according to patient size, and/or iterative reconstruction. CONTRAST: Omnipaque 350, 75 mL COMPARISON: None provided. FINDINGS: LUNG BASES: Atelectasis and scarring at the lung bases. LIVER: Unremarkable. GALLBLADDER AND BILE DUCTS: Tiny gallstone seen. PANCREAS: Unremarkable. SPLEEN: Unremarkable. ADRENAL GLANDS: Unremarkable. KIDNEYS, URETERS, AND BLADDER: Dueñas catheter seen in the bladder lumen. No hydronephrosis or nephrolithiasis. No ureteral calculi. STOMACH AND BOWEL: Edema or loops of small bowel suggesting moderate small bowel enteritis. Free air in the upper abdomen is seen, suggesting perforated bowel. No obstruction. APPENDIX: No CT evidence for appendicitis. PERITONEUM: Moderate ascites in the abdomen and pelvis. No free air under the diaphragm. LYMPH NODES: No lymphadenopathy. REPRODUCTIVE: Unremarkable as visualized. VASCULATURE: No aortic aneurysm. ABDOMINAL WALL AND SOFT TISSUES: There is air in the subcutaneous soft tissue seen anteriorly, suggesting recent postsurgical changes; please correlate with surgical history. BONES: No fracture or suspicious osseous abnormality. IMPRESSION: 1. Moderate small bowel enteritis with free air in the upper abdomen, suggesting perforated bowel versus post surgical changes. No obstruction. 2. Moderate ascites in the abdomen and pelvis. 3. Air in the subcutaneous soft tissue anteriorly, suggesting recent postsurgical changes; please correlate with surgical history. /[place] DICTATED BY: EDWIGE LEDESMA MD DATE: 07/20/252317 ELECTRONICALLY SIGNED BY: EDWIGE LEDESMA MD DATE: 07/20/252317 ASSESSMENT: Acute kidney injury Hyponatremia Bacterial peritonitis Perisplenic and infrasplenic fluid collection with splenomegaly Cholelithiasis 2 mm perforation of the colonic anastomosis Anastomosis leak Bilious peritonitis S/p Diagnostic laparoscopy, abdominal washout, drain placement and diverting loop ileostomy creation Atrophic vaginitis Anemia Diabetes Mellitus Type 2 Septic Shock Cirrhosis of liver Oesophageal Varices PLAN: Labs, diagnostic, radiologic exams reviewed and interpreted by myself and supervising physician. We have reviewed external records in detail Advance diet as per primary team Pain management as per Primary team/surgery Require close monitoring of renal function and electrolytes Order CBC, CMP, and electrolytes in am Continue with antibiotics as per ID BiPAP as necessary, for respiratory distress Monitor blood pressure adjust medication doses as needed Avoid hypotensive episodes May use Dilaudid 0.5 mg IV every 6 hours as needed for severe pain Monitor blood sugars Strict intake, output, and daily weight should be monitored Please renally adjust medications Avoid nephrotoxic and nonsteroidal drugs Avoid contrast if possible Will continue to monitor renal function, anemia, electrolytes Treatment plan discussed with patient Questions were answered We have discussed with the other team physicians in detail about the care plan We will continue to monitor the patient closely ATTESTATION BY PHYSICIAN I have seen and examined the patient. I reviewed the documentation, medical decision making, and treatment plan as noted by the mid-level provider above. I agree with the findings and plan of care. CIELO PORTILLO MD, [facility] Aug 12, 2025 13:14
--- NOTE | 2025-08-12 14:20 | NUR ---
Nutritional f/u Note: Chart, meds, and labs Reviewed. She is currently on full liquid diet 25% of meals taken as per nursing. Wt Status: current wt 60kg Recommend: -Advance diet as per GI recommendations. -D/c PPN when pt able to tolerate >75% of full liquid diet. --ProStat BID (30 ml) JELLO -Ensure max w/ trays -Lipid emulsion x 3 weekly m, w, f to prevent essential fatty acid deficiency. Hold if triglycerides >400 or active sepsis not controlled. -Check Lipid Panel weekly on Mondays - to provide further recommendations based on clinical progress. -Monitor feeding tolerance, %, wt, and labs -If No BM >3days consider bowel stimulant. - Please notify RD if additional nutrition concerns arise. Addendum: 08/12/25 at [address] Amended: Links added.
--- NOTE | 2025-08-12 14:22 | PN ---
[facility] PROGRESS NOTE Date of Service: Aug 12, 2025 Time of Service: 9:20 SUBJECTIVE: Ms. Gray is a 55-year-old female that was seen and examined today on 07/20/2025. Patient reports that she came to the emergency department with a chief complaint of abdominal pain. Onset was 07/09/2025. Location is all four quadrants. Duration is constant. Character is described as pressure and " like I have a lot of gas trapped. " there was no alleviating factors. There was no aggravating factors. Patient reports associated abdominal swelling. 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 After the discharge she was taking pain medications and her condition started worsening after few days. She is in constant follow up with Dr Gann. Today in the emergency department WBCs 21.2, left shift neutrophils 85.5%, BUN 26, creatinine 3.1, GFR 17, lactic acid 8.0, no urinalysis has been collected or sent to lab, CT of abdomen and pelvis showed of free air in the abdomen which could be a suspected bowel perforation versus postsurgical changes, moderate ascites, fissure post surgical changes. Chest x-ray shows right pleural effusion. Additionally patient had a heart rate of 125, respirations 26, together with leukocytosis and lactic acidosis patient met clinical sepsis criteria additionally patient's blood pressure dropped to 85/50 mmHg requiring vasopressor support therefore meeting criteria for septic shock. Patient will be admitted to the intensive care unit. Emergency room physician spoke with patient's surgeon, Dr. Gann who requested patient be admitted under hospitalist service and she will follow this case along. 07/21/25 Patient was evaluated at the bedside. She was accompanied by her daughter. She is oriented to the time, place and person. She complained of abdominal pain in all the quadrants. She hasn't had bowel movement since Saturday and also is unable to pass flatus at this time. She has guarding, rigidity and tenderness all over the abdomen, showing the signs of peritonitis. She was seen by Dr Gann this alba and is planned to be taken to OR this afternoon. Dueñas catheter is in place, as she wasn't able to pass the urine. There is no fever, chills and any other signs of infection. 07/22/25 Patient was evaluated at the bedside. She was accompanied by her daughter. She is oriented to the time, place and person. She underwent Diagnostic laparoscopy, abdominal washout, drain placement and diverting loop ileostomy creation, The procedure revealed Bilious peritonitis, 2 mm perforation of the colonic anastomosis. She is hemodynamically stable with Blood pressure of 110/73 and HR of 83. Currently she complains of abdominal pain which is getting better than yesterday, its 3-4/10 intensity. There is no rigidity. She is anxious about the outcomes and had discussion regarding her current clinical status and lab parameters. There is no fever, chills and any other signs of infection. 07/23/25 Patient was evaluated at the bedside. She was accompanied by her daughter. She is oriented to the time, place and person. She status post diagnostic laparoscopy, abdominal washout, drain placement and diverting loop ileostomy creation. Currently she complains of abdominal pain which is 5/10 intensity. She also complaints of mild lower back pain There is no fever, chills and any other signs of infection. She has CHRIS drain in-situ with clear fluid along with colostomy bag. She is currently tolerating clear liquid diet. 07/24/2025 Patient is seen and examined at the bedside. Vitals blood pressure ranging in 100s/50s, pulse rate 50s, SpO2 greater than 95% on room air. She mentions about experiencing pressure-like discomfort on the right side of the abdomen and pain when she tries to eat. No acute events last night. She denies fever, chills, nausea, vomiting, chest pain. CHRIS output approximately 100cc/hr, serosanguineous fluid. Ileostomy bag in place. She is tolerating clear liquid diet without any nausea/vomiting. Labs hemoglobin 9.8, BUN 38, creatinine improved from 1.6-1.1. 07/25/2025 Patient is seen and examined at the bedside. She complains of abdominal pain which is 7/10 in intensity. No acute events last night. She denies fever, chills, nausea, vomiting, chest pain. CHRIS output approximately 100cc/hr, serosanguineous fluid. Ileostomy bag in place. The patient has been started on spironolactone 25mg BID and Lasix 20 mg once daily. There is high output from CHRIS but it is clear serous, most likely related to her ascites from her history of liver cirrhosis. She is tolerating clear liquid diet without any nausea/vomiting. 07/26/2025 Patient is seen and examined at the bedside. She complains of abdominal pain which remains constant. No acute events last night. She denies fever, chills, nausea, vomiting, chest pain. Patient is status post with a CHRIS drain. The drain has been collecting the serosanguineous fluid secondary to ascites. She has been tolerating liquid diet and her diet has been advanced to soft diet. She still has bloating for which probiotics and fibers has been recommended. Hemoglobin has gradually trended down to 9.2 and was given IV Venofer. Patient to get up and ambulate and work with physical therapy. 07/27/2025 Patient is seen and examined at the bedside. She complains of abdominal pain which is 6/10 in intensity. No acute events last night. She denies fever, chills, nausea, vomiting, chest pain. Patient is unable to tolerate the soft diet, hence she is currently receiving the liquid diets. The CHRIS drain output is still high and there was small amount of drainage observed in the right ileostomy. 07/28/2025 Patient is seen and examined at the bedside. She complains of abdominal pain which is 9/10 in intensity. No acute events last night. She denies fever, chills, nausea, vomiting, chest pain. Patient reported pain after eating but no nausea or vomiting. WBC is gradually trending up from 8.3-7.3-11.1-11.8. She had lidocaine patch placed this morning. She was started on simethicone 80 mg yesterday. Pertinent she is currently receiving Dilaudid 0.5 mg. Abdominal ultrasound has been ordered for further assessment. 07/29/2025 Patient is seen and examined at the bedside. She continues to complain of severe abdominal pain, rated 9/10 in intensity, unchanged from prior. She is currently receiving Dilaudid 0.5 mg for pain. She reports discomfort related to Dueñas catheterization. She denies fever, chest pain, nausea or vomiting at this time. No acute events were reported overnight. Blood pressure noted today is noted to be 98/54 mm Hg which is slightly low. Per surgery team, stoma is likely to be removed today. Hemoglobin has trended down from 9.7 g/dl to 9.0 g/dl. 07/30/2025 Patient is seen and examined at the bedside. She continues to complain of severe abdominal pain. Her abdominal distention has slightly improved. Dueñas's catheter was removed due to persistent discomfort. We will continue with scheduled removal of the ascites fluid and from CHRIS bulb. Ultrasound of abdomen was concerning for cholelithiasis with biliary sludge and gallbladder distention. HIDA scan was performed today. If consistent with cholecystitis patient will need cholecystostomy tube placement. 07/31/2025 Patient is seen and examined at the bedside. She was accompanied by her daughter. She continues to complain of severe abdominal pain. She is currently on Dilaudid 0.5mg Q4H PRN, which relieves the symptoms for 2-3 hours, after that she develops same level of pain and discomfort again. Currently awaiting the HIDA scan results. Her sodium level is 133 and albumin level is trending downwards from 2.3 to 2.1. Her Iron panel results showed: Iron 20L, TIBC 147L and %sat 16.3L. For her continuos pain she is started on Fentanyl 25mcg. CHRIS drain culture has beens sent. Based on the results of HIDA scan, CT chest will be planned. 08/01/2025: Patient is seen and examined this morning at bedside. She was accompanied by her daughter. The patient complains of severe abdominal pain. She is currently being managed with [place], and Dilaudid for breakthrough pain. HIDA scan results are back, and show acute cholecystitis. Surgery has been made aware of the results. IR has been consulted for cholecystostomy tube placement. The patient will be started on PPN, as recommended by general surgery. The patient follows with Dr. Sol outpatient for her liver cirrhosis. The patients daughter would like her bar machine operator Dr. Sol to be involved in the patients care, and be updated with her status. 08/02/2025: Patient is seen and evaluated in the room 432. She was accompanied by her daughter. She complains of severe abdominal pain. She also complained of bleeding through her vagina, pink tinged urine. Her vitals are in the normal range. Her labs are in the normal range except for Hb is 8.6, Na is 135, K is 5.2, BUN is 4, Glucose is 150, CRP is 103.90. She went for placement of cholecystectomy tube by IR. We did a pelvic exam and ordered a vaginal estrogen cream and urinalysis. Also for her hyperkalemia we checked the potassium again and its 4.1. So we will repeat the labs tomorrow. We ordered a dose of albumin for her. 08/03/2025: Patient is seen and evaluated in the room 432. She has mild abdominal pain today. Her pain improved after the placement for cholecystotomy tube. Her vitals are in the normal range. Her labs are normal except for hemoglobin 8.2, glucose 156, CRP 89.8. Her aerobic and anaerobic culture of drain showed no growth. Gastroenterology saw the patient and they recommended 25 grams of 25% IV albumin q12H for 3 days. Her bleeding through the vagina decreased. The drainage through the left abdomen is 100ml, right abdomen is 20ml, left anterior abdomen 5ml. 08/04/2025: Patient is seen and evaluated in the room 432. She has abdominal pain today. Her vitals are in the normal range. Her labs are normal except for Hb is 8, CRP is 72.10, glucose is 130. Aerobic and anaerobic drain culture showed no growth. She is not able to tolerate her food. The drainage through the left abdomen is 100ml, right abdomen is 20ml, left anterior abdomen 5ml. Gastroenterology is planning to do EGD tomorrow. Surgery wanted to do a CT abdomen and pelvis with IV contrast. CT scan showed perisplenic and infrasplenic fluid collection measuring 6.0 x 6.1 x 8.9 cm, splenomegaly, with spleen measuring 15.2 cm, cholecystostomy tube in situ with decompressed gallbladder, abdominal drain in situ with tip in the pelvis. We ordered T.bilirubin and we will monitor the output from colostomy tube. We are also planning to add metoclopramide. 08/05/2025: Patient is seen and evaluated in the room 432. She has abdominal pain today. Her abdomen is tender to touch and warm. Her vital signs are in the normal range except for BP is 117/45. Her labs are normal except for Hb is 8.2, sodium is 135, creatinine is 0.3, CRP is 60.9 The drain output from left abdomen is 40ml, left anterior abdomen 0ml, right abdomen 0ml. Her saturation is 100% on 10L of O2. Her labs are in the normal range except for Hb is 8.2, HCT is 25.9, sodium is 135, glucose is 107, CRP is 60.90. She underwent endoscopy today and they did biopsy from 3 sites. GI said that they will consult radiology to check whether CHRIS drain and cholecystostomy tube are in place. General surgery will consult IR to evaluate perisplenic fluid collection for potential aspiration. 08/06/2025: Patient is seen and evaluated in the room 432. She has abdominal pain today. Her abdomen is tender to touch and warm. Her vital signs are in the normal range except for 97/63. Her labs are in the normal range except for Hb is 8.1, sodium is 135, blood glucose is 151, CRP 53.60. We are waiting for IR consult for evaluation and for potential aspiration of perisplenic fluid. The drain output from right abdomen is 20ml. 08/07/2025: Patient is seen and evaluated in the room 432. She has abdominal pain today. Her abdomen is tender to touch and warm. Her vital signs are in the normal range except for blood pressure which is 102/60. Her labs are in the normal range except for Hb is 8.5, WBC is 4.4, RDW is 17.3, sodium is 134, glucose is 147. We are waiting for IR consult for evaluation and for potential aspiration of perisplenic fluid. The drain output from right abdomen is 20ml. The BACK WINDER told me that she eats her food after taking her pain medications. Nurse is planning to start full liquid diet for lunch. 08/08/2025: She was evaluated at the bedside this morning. She is AAO x3. she complained of epigastric pain which gets worse with food . Moderate tenderness was appreciated on the epigastric region. Her blood pressure is 99/46, pulse 80. Remarkable lab is for WBC of 4.8, hemoglobin 9, CRP 43.90. She is scheduled with IR for perisplenic fluid aspiration and checking the position of cholecystostomy tube. She is on full liquid diet. She is on Zosyn, fluconazole. Surgery, GI, ID on the board. Rest of the plan as discussed below. 08/09/2025: Patient went to catheterization laboratory technician for PROCEDURE. As per nurse, her cholecystostomy tube was already correctly positioned but had some stones so tube was flushed. She complained of epigastric and pelvic pain. For pain control, fentanyl patch has been ordered. She is pending perisplenic fluid aspiration by IR. Her blood pressure is 98/58, pulse 90. She is currently NPO. She is on Zosyn, fluconazole. Surgery, GI, ID on the board. Rest of the plan as discussed below. 08/10/2025: Patient was seen and examined at bedside. She underwent CT GUIDED PERISPLENIC PIGTAIL DRAINAGE CATHETER PLACEMENT with Aspiration of perisplenic fluid. There has been 25 ml sanguinous drainage so far in the catheter. Her cholecystostomy tube has had 30 mL drainage in the past 24 hours. She is currently on clear liquid diet tolerating it well. She continues to complain pain in her abdomen without any peritoneal signs. She was started on fentanyl patch yesterday. Gram stain and body fluid culture were sent after drainage of perisplenic abscess which showed RARE GRAM POSITIVE COCCI after 1 day. Patient is currently on Zosyn. 08/11/2025: Patient was seen and examined. She continues to complain of abdominal pain. Her multimodal pain medications were adjusted with fentanyl increased to 25mcg and Dilaudid frequency changed from q.4h to q.6h. She is currently on clear liquid diet and complains of pain while eating. She continues on Zosyn and fluconazole. We are waiting for culture results after drainage of perisplenic abscess. Incision site is clean, dry and intact. Will continue to follow recommendations from ID, General surgery and Nephrology. 08/12/2025: Patient was seen and examined at bedside. She complained of pain in right upper abdomen as well as left lower quadrant, along the drainage catheter insertion. No peritoneal signs present. She is currently on multimodal pain management. Today, we are advancing her to full liquid diet. Culture results have been negative so far. Incision site is clean, dry and intact. Will continue to follow recommendations from ID, General surgery and Nephrology. REVIEW OF SYSTEMS CONSTITUTIONAL: No fever, chills, or night sweats. NEUROLOGICAL: Denies headache, sensory and motor deficit. CARDIOVASCULAR: Denies any exertional angina, dyspnea on exertion, palpitations. PULMONARY: Denies any shortness of breath, cough, phlegm/sputum, hemoptysis, pleuritic chest pain. GASTROINTESTINAL: Patient complains of diffuse abdominal pain. She also has bloating. Denies nausea, vomiting. No peritoneal signs observed. GENITOURINARY: Denies frequency, urgency, nocturia, hematuria or incontinence. PHYSICAL EXAM GENERAL APPEARANCE: The patient is alert, awake and oriented and bedbound. NEUROLOGICAL: No sensory and motor deficits. CHEST: Normal chest expansion. LUNGS: Normal Vesicular breath sound. Absence of any rales, rhonchi or any wheezing. CARDIOVASCULAR: Regular. S1 and S2 normal. No appreciable rubs, murmurs or gallops. ABDOMEN: Abdomen is soft and slightly tender. CHRIS drain is placed. Ileostomy creation. Cholecystostomy tube is placed. Drainage catheter in left upper abdominal quadrant as well. Absence of guarding, rigidity and rebound tenderness. GENITOURINARY: No suprapubic tenderness. No costovertebral angle tenderness. Vital Signs (last 8hr) Date Time Temp Pulse Resp B/P (MAP) Pulse Ox O2 Delivery O2 Flow Rate FiO2 08/12/25 13:01 95 Room Air* 0 21 08/12/25 11:59 97.9 83 19 100/65 96 Room Air 08/12/25 08:03 97.9 88 19 99/55 97 Room Air LABS: Laboratory: Test 08/12/25 11:15 08/12/25 04:14 08/11/25 02:06 Range/Units Whole Blood Glucose 187 H 70-110 MG/DL White Blood Count 4.6 L 4.8-10.8 K/uL Red Blood Count 2.84 L 4.00-5.50 MIL/uL Hemoglobin 8.3 L 12.0-16.0 g/dL Hematocrit 26.5 L 36-48 % Mean Corpuscular Volume 93.3 79-99 fL Mean Corpuscular Hemoglobin 29.2 27.0-33.0 pg Mean Corpuscular Hemoglobin Concent 31.3 L 32.0-36.0 g/dL Red Cell Distribution Width 17.6 H 11.0-15.5 % Platelet Count 195 130-400 K/uL Mean Platelet Volume 10.0 7.5-10.5 fL Nucleated Red Blood Cells 0.0 0.0-0.19 % Sodium Level 135 L 136-145 mmol/L Potassium Level 3.8 3.5-5.1 mmol/L Chloride Level 103 101-111 mmol/L Carbon Dioxide Level 21 21-32 mmol/L Blood Urea Nitrogen 15 7-18 mg/dL Creatinine 0.7 0.5-1.0 mg/dL Glomerular Filtration Rate Calc 101 >90 mL/min Random Glucose 169 H 70-105 mg/dL Total Calcium 8.4 L 8.5-10.1 mg/dL Prothrombin Time 13.8 H 9.6-11.6 SEC Prothromb Time International Ratio 1.34 H 0.85-1.15 Activated Partial Thromboplast Time 32.2 26.3-35.5 SEC Phosphorus Level 2.7 2.5-4.9 mg/dL Magnesium Level 1.90 1.80-2.40 mg/dL Total Bilirubin 0.5 0.2-1.0 mg/dL Aspartate Amino Transf (AST/SGOT) 34 10-37 U/L Alanine Aminotransferase (ALT/SGPT) 14 12-78 U/L Alkaline Phosphatase 121 50-136 U/L Total Protein 7.2 6.0-8.3 g/dL Albumin 2.5 L 3.5-5.0 g/dL Current Medications Medications (Trade) Dose Ordered Sig/Gregory Route PRN Reason Start Time Stop Time Status Last Admin Dose Admin Acetaminophen (TYLenol 500MG TAB) 500 mg Q6H6 PRN PO MILD PAIN (1-3) 07/27/25 16:30 08/07/25 12:15 DC Acetaminophen (TYLenol 500MG TAB) 500 mg Q6H6 PRN PO MILD PAIN (1-3) 08/07/25 10:00 08/07/25 10:03 DC Acetaminophen (TYLenol 650MG SUPPOSITORY) 650 mg Q6H PRN RC MILD PAIN (1-3) 07/21/25 00:00 07/27/25 16:22 DC Acetaminophen/ Hydrocodone Bitart (NORco 5/325MG) 1 tab Q4H PRN PO MODERATE PAIN (4-6) 07/31/25 16:30 08/05/25 16:29 DC 08/05/25 14:57 1 TAB Acetaminophen/ Hydrocodone Bitart (NORco 5/325MG) 1 tab Q4H PRN PO MODERATE PAIN (4-6) 08/07/25 12:30 08/12/25 12:29 DC 08/12/25 00:46 1 TAB Albumin Human 50 ml @ 100 mls/hr Q12H IV 08/02/25 21:30 08/05/25 09:59 DC 08/05/25 10:12 100 MLS/HR Albumin Human 50 ml @ 0 mls/hr Q12H IV 08/02/25 18:30 08/02/25 20:04 DC Albumin Human 100 ml @ 0 mls/hr ONCE IV 07/25/25 12:00 07/26/25 11:59 DC 07/25/25 13:43 100 MLS/HR Clotrimazole (Lotrimin) 1 GM BID TP 07/29/25 21:00 08/28/25 20:59 08/12/25 08:36 1 GM Cyclobenzaprine HCl (Cyclobenzaprine HCl) 5 mg TID PO 07/25/25 14:00 07/26/25 14:00 DC 07/26/25 14:19 5 MG Fat Emulsion Intravenous 250 ml @ 42 mls/hr DAILY10 IV 08/13/25 10:00 09/12/25 09:59 Fentanyl (DURAgesic 12 MCG/HR PATCH) 12 mcg Q72H TD 08/09/25 13:00 08/09/25 15:19 DC Fentanyl (DURAgesic 12 MCG/HR PATCH) 12 mcg Q72H TD 08/09/25 15:30 08/11/25 10:32 DC 08/09/25 15:38 12 MCG Fentanyl (DURAgesic 25 MCG/HR PATCH) 25 mcg Q72H TD 07/31/25 14:30 07/31/25 14:44 DC Fentanyl (DURAgesic 25 MCG/HR PATCH) 25 mcg Q72H TD 08/12/25 15:30 08/17/25 15:29 Fluconazole/ Sodium Chloride (DiFLUCan 200 MG/ NS 100 ML) 200 mg Q24H IVPB 07/21/25 21:00 08/20/25 20:59 08/11/25 22:21 200 MG Furosemide (LASix 20MG TAB) 20 mg DAILY PO 07/25/25 11:00 08/02/25 11:53 DC 08/02/25 09:42 20 MG Gabapentin (NEURontin 100 mg CAP) 100 mg TID PO 07/29/25 14:00 08/02/25 09:21 DC 08/01/25 20:14 100 MG Gabapentin (NEURontin 100 mg CAP) 100 mg TID PO 08/11/25 21:00 09/10/25 20:59 08/12/25 13:36 100 MG Hydromorphone HCl (DiLAUDid 0.5MG INJ) 0.5 mg Q4H PRN IVP SEVERE PAIN (7-10) 07/24/25 10:00 07/29/25 09:59 DC 07/29/25 08:22 0.5 MG Hydromorphone HCl (DiLAUDid 0.5MG INJ) 0.5 mg Q4H PRN IVP SEVERE PAIN (7-10) 07/29/25 13:30 08/03/25 13:29 DC 08/03/25 13:09 0.5 MG Hydromorphone HCl (DiLAUDid 0.5MG INJ) 0.5 mg Q4H PRN IVP SEVERE PAIN (7-10) 08/03/25 18:00 08/07/25 10:03 DC 08/07/25 05:09 0.5 MG Hydromorphone HCl (DiLAUDid 0.5MG INJ) 0.5 mg Q4H PRN IVP SEVERE PAIN (7-10) 08/07/25 10:00 08/11/25 10:32 DC 08/10/25 20:27 0.5 MG Hydromorphone HCl (DiLAUDid 0.5MG INJ) 0.5 mg Q6H PRN IVP SEVERE PAIN (7-10) 08/11/25 11:00 08/16/25 10:59 08/12/25 08:57 0.5 MG Insulin Human Regular (humuLIN R 100 UNIT/ML 3ML) INSULIN SLIDING SCAL... ACHS SQ 07/21/25 07:30 08/20/25 07:29 08/12/25 12:01 2 UNIT Lactated Ringer's 1,000 ml @ 75 mls/hr [id number] IV 07/21/25 00:00 07/21/25 13:17 DC 07/21/25 02:57 75 MLS/HR Lactated Ringer's 1,000 ml @ 75 mls/hr [id number] IV 07/21/25 13:30 07/24/25 11:09 DC 07/24/25 09:27 75 MLS/HR Lactobacillus Rhamnosus ([facility]) 1 each DAILY20 PO 07/26/25 20:00 08/25/25 19:59 08/11/25 22:19 1 EACH Lidocaine (Lidoderm Patch 5%) 1 patch DAILY TP 07/28/25 09:00 08/27/25 08:59 08/12/25 08:35 1 PATCH Lidocaine HCl/Al Hydroxide/Mg Hydroxide/ Dicyclomine HCl 20ML OR AD ONCE PO 08/06/25 16:30 08/07/25 16:29 DC 08/06/25 16:45 20 ML Magnesium Sulfate 50 ml @ 0 mls/hr PROTOCOL PRN IV MAGNESIUM PROTOCOL 07/21/25 07:00 08/20/25 06:59 08/01/25 06:05 25 MLS/HR Methocarbamol (methoCARBamol) 500 mg BID PO 08/11/25 16:00 09/10/25 15:59 08/12/25 08:35 500 MG Metoclopramide HCl (regLAN 10MG IV) 5 mg BID IVP 08/04/25 21:00 09/03/25 20:59 08/12/25 08:35 5 MG Metronidazole/ Sodium Chloride (flaGYL) 500 mg Q8H IV 07/21/25 14:00 07/21/25 13:40 DC Morphine Sulfate (morPHINE 2MG SYG) 2 mg Q4H PRN IVP SEVERE PAIN (7-10) 07/21/25 00:30 07/21/25 13:18 DC 07/21/25 04:46 2 MG Morphine Sulfate (morPHINE 4MG SYG) 4 mg Q3H PRN IV MODERATE PAIN (4-6) 07/21/25 13:30 07/26/25 16:29 DC 07/26/25 10:51 4 MG Norepinephrine 250 ml @ 0 mls/hr PROTOCOL IV 07/20/25 23:30 08/03/25 08:27 DC 07/21/25 10:56 18.45 MLS/HR Ondansetron HCl (zoFRAN 4MG INJ) 4 mg Q4H PRN IVP NAUSEA 07/21/25 13:30 08/20/25 13:29 Ondansetron HCl (zoFRAN 4MG INJ) 4 mg Q6H PRN IV NAUSEA/VOMITING 07/21/25 00:00 07/21/25 13:18 DC Pantoprazole Sodium (PROTonix 40MG INJ) 40 mg BID IV 07/26/25 21:00 08/20/25 08:59 10/9/25 08:35 40 MG Pantoprazole Sodium (PROTonix 40MG INJ) 40 mg BID IVP 08/05/25 21:00 08/06/25 08:39 DC 08/05/25 20:25 40 MG Pantoprazole Sodium (PROTonix 40MG INJ) 40 mg DAILY IV 07/21/25 09:00 07/26/25 09:31 DC 07/26/25 08:55 40 MG Pharmacy Profile Note (Pharmacy Communication) 1 each ONCE MISC 07/21/25 15:30 07/21/25 15:16 DC Pharmacy Profile Note (Pharmacy Communication) 1 each ONCE MISC 08/06/25 16:00 08/07/25 07:07 DC Piperacillin Sod/ Tazobactam Sod 50 ml @ 200 mls/hr ONCE STAT IVPB 07/20/25 19:15 07/20/25 19:29 DC 07/20/25 20:32 200 MLS/HR Piperacillin Sod/ Tazobactam Sod (Zosyn 3.375gm+NS 50ml) 3.375 gm Q12H IV 07/21/25 00:00 07/31/25 00:00 DC 07/30/25 23:55 3.375 GM Piperacillin Sod/ Tazobactam Sod (Zosyn 3.375gm+NS 50ml) 3.375 gm Q8H IVPB 07/31/25 11:30 08/10/25 11:29 DC 08/10/25 04:05 3.375 GM Piperacillin Sod/ Tazobactam Sod (Zosyn 3.375gm+NS 50ml) 3.375 gm Q8H IVPB 08/10/25 13:00 08/20/25 12:59 08/12/25 13:36 3.375 GM Potassium Chloride 100 ml @ 100 mls/hr AD PRN IV POTASSIUM PROTOCOL 07/24/25 08:30 08/23/25 08:29 07/30/25 06:23 100 MLS/HR Potassium Chloride (K-Dur/Klor-Con 20meq) 20 meq AD PRN PO POTASSIUM PROTOCOL 07/24/25 08:30 08/23/25 08:29 07/27/25 20:33 20 MEQ Potassium Chloride (KCl 10% Elixir 20meq/15ml) 20 meq AD PRN PO POTASSIUM PROTOCOL 07/24/25 08:30 08/23/25 08:29 07/31/25 08:15 20 MEQ Psyllium Hydrophilic Mucilloid (Metamucil) 1 tbs BID PO 07/26/25 21:00 08/25/25 20:59 08/12/25 08:33 1 TBS Simethicone (Mylicon) 80 mg Q6H6 PO 07/27/25 12:00 08/26/25 11:59 08/12/25 11:59 80 MG Sodium Bicarbonate 150 meq/Sodium Chloride 1,150 ml @ 0 mls/hr Q0M IVP 07/21/25 14:00 07/26/25 09:31 DC Sodium Chloride (NS 50ml) 50 ml AD IV 07/31/25 11:30 07/31/25 11:12 DC Sodium Chloride (Normal Saline Flush) 10 ml Q8H IJ 08/09/25 11:00 09/08/25 10:59 08/12/25 10:32 10 ML Spironolactone (Aldactone 25mg) 25 mg BID PO 07/25/25 21:00 07/26/25 09:01 DC 07/26/25 08:56 25 MG Sucralfate (Carafate) 1 gm ACHS PO 07/29/25 21:00 08/28/25 20:59 08/12/25 11:59 1 GM Thiamine HCl (Vitamin B-1) 100 mg DAILY IVP 07/22/25 21:00 08/21/25 20:59 08/12/25 08:35 100 MG Thiamine HCl 100 mg/Sodium Chloride 50 ml @ 100 mls/hr Q24H IM 07/21/25 15:30 07/21/25 16:25 DC Vancomycin HCl (Vancomycin 1g/ 250ml Kit) 1 gm ONCE STAT IV 07/20/25 21:23 07/20/25 21:26 DC 07/20/25 22:06 1 GM Vasopressin 20 units/Sodium Chloride 100 ml @ 0 mls/hr PROTOCOL IV 07/21/25 00:30 08/03/25 08:27 DC 07/21/25 00:10 9 MLS/HR DIAGNOSTICS / RADIOLOGY: PATIENT: DALLAS BUCHANAN MR#: [id number] : 1970 SEX: F AGE: 55 LOCATION: 4AH ORDER 36 STATUS: ADM IN REPORT#: [id number] SERVICE 1336 REASON: epigastric pain. not tolerating meals. ORDERING PHYSICIAN: SUSAN GANN MD PROCEDURE: ABD PEL W - CT ABDOMEN/PELVIS W/CONTRAST EXAM: CT Abdomen and Pelvis with IV contrast CLINICAL HISTORY: epigastric pain. not tolerating meals. TECHNIQUE: Axial computed tomography images of the abdomen and pelvis with intravenous contrast. CONTRAST: with intravenous contrast. COMPARISON: Compared with the previous CT dated 07/20 and USG dated 07/29 FINDINGS: LUNG BASES: Grossly stable atelectasis and scarring at the lung bases. LIVER: Unremarkable. GALLBLADDER AND BILE DUCTS: The gallbladder is decompressed with a cholecystostomy tube in situ. PANCREAS: Unremarkable. SPLEEN: The spleen is enlarged in size, measuring 15.2 cm. ADRENAL GLANDS: Unremarkable. KIDNEYS, URETERS, AND BLADDER: No hydronephrosis or nephrolithiasis. No ureteral calculi. The urinary bladder is unremarkable. STOMACH AND BOWEL: The ileostomy site appears unremarkable. Interval resolution of previously seen moderate small bowel enteritis. No obstruction. APPENDIX: No CT evidence for appendicitis. PERITONEUM: Near complete interval resolution of previously seen moderate ascites in the abdomen and pelvis. Collection in the perisplenic and infra-splenic region measuring 6.0 x 6.1 x 8.9 cm. Interval resolution of previously seen pneumoperitoneum. Diffuse mesenteric fat stranding, likely postoperative changes. LYMPH NODES: No lymphadenopathy. REPRODUCTIVE: Unremarkable as visualized. VASCULATURE: No aortic aneurysm. ABDOMINAL WALL AND SOFT TISSUES: Interval resolution of previously seen subcutaneous emphysema in the anterior abdominal wall and left lateral chest wall. Abdominal drain in situ with tip in the pelvis. BONES: No fracture or suspicious osseous abnormality. IMPRESSION: 1. Perisplenic and infrasplenic fluid collection measuring 6.0 x 6.1 x 8.9 cm. 2. Splenomegaly, with spleen measuring 15.2 cm. 3. Cholecystostomy tube in situ with decompressed gallbladder. 4. Abdominal drain in situ with tip in the pelvis. 5. No acute findings in the remainder of the abdomen and pelvis. /[place] DICTATED BY: ELDON MILLER Jr., MD DATE: 08/04/251636 ELECTRONICALLY SIGNED BY: ELDON MILLER Jr., MD DATE: 08/04/251636 PATIENT: DALLAS BUCHANAN MR#: [id number] : 1970 SEX: F AGE: 55 LOCATION: 4AH ORDER 1524 STATUS: ADM IN REPORT#: [id number] SERVICE 1523 REASON: cholecystitis ORDERING PHYSICIAN: BENEDICTO OBRIEN Jr. PROCEDURE: HIDA PHARM - NM HIDA/HEPATOBILI W/ PHARMACO EXAM: HIDA scan. INDICATION: Severe RUQ Pain to rule out cholecystitis. REFERENCE EXAMINATION: USG July 29, 2025. TECHNIQUE: Sequential images of the abdomen were obtained in the anterior projection after IV administration of 6.0 mCi of Tc99m Mebrofenin. FINDINGS: Tracer activity throughout the liver is homogeneous without focal defects. There is prompt excretion of the pharmaceutical into the bile ducts and into the small bowel, without evidence of obstruction. There is no visualization of the gallbladder at the conclusion of the examination. IMPRESSION: Scintigraphic findings are compatible with acute cholecystitis. /[place] DICTATED BY: ELDON MILLER Jr., MD DATE: 08/01/25 1011 ELECTRONICALLY SIGNED BY: ELDON MILLER Jr., MD DATE: 08/01/25 1011 PATIENT: DALLAS BUCHANAN MR#: [id number] : 1970 SEX: F AGE: 55 LOCATION: 4AH ORDER 10 STATUS: ADM IN REPORT#: [id number] SERVICE 09 REASON: ABD PAIN ORDERING PHYSICIAN: NIKKI MUNOZ NP PROCEDURE: ABD 1VW - ABD 1VW EXAM: CR Abdomen, 1 view. CLINICAL HISTORY: Pain. COMPARISON: None provided. FINDINGS: Dilated small bowel loops are seen in mid abdomen. There is a density in the pelvis which may represent a send drainage catheter. No free air is evident. No abnormal calcification. No aggressive appearing osseous lesion. IMPRESSION: Dilated small bowel loops are seen in mid abdomen. Density in the pelvis which may represent a send drainage catheter. /[place] DICTATED BY: TOBI LEAHY MD DATE: 07/29/25 103 ELECTRONICALLY SIGNED BY: TOBI LEAHY MD DATE: 07/29/25 103 PATIENT: DALLAS BUCHANAN MR#: [id number] : 1970 SEX: F AGE: 55 LOCATION: [facility] ORDER 18 STATUS: ADM IN REPORT#: [id number] SERVICE 15 REASON: Liver cirrhosis ORDERING PHYSICIAN: LISET DOUGLAS MD PROCEDURE: ABDOMEN - US ABDOMINAL COMPLETE EXAM: US Abdomen complete CLINICAL HISTORY: Liver cirrhosis TECHNIQUE: Real-time ultrasound of the abdomen (complete) with image documentation. COMPARISON: None provided. FINDINGS: LIVER: Liver measures 12.3 cm with a heterogeneous coarse echotexture. GALLBLADDER: Gallbladder contains stones and sludge. Gallbladder is distended. COMMON BILE DUCT: No dilation. PANCREAS: Pancreas not well-visualized due to overlying bowel gas KIDNEYS: Normal renal contours. No renal mass or calculus. No hydronephrosis. SPLEEN: Normal in size and echogenicity. No mass identified. AORTA: No aneurysm. IVC: Unremarkable as visualized. MISCELLANEOUS: Small amount of abdominal ascites. IMPRESSION: 1. Cirrhotic-appearing liver. 2. Cholelithiasis and biliary sludge with gallbladder distension. 3. Small volume ascites. /[place] DICTATED BY: CYNTHIA JULIAN MD DATE: 07/29/25 1056 ELECTRONICALLY SIGNED BY: CYNTHIA JULIAN MD DATE: 07/29/25 105 PATIENT: DALLAS BUCHANAN MR#: [id number] : 1970 SEX: F AGE: 55 LOCATION: 2BH ORDER 1108 STATUS: ADM IN REPORT#: [id number] SERVICE 1106 REASON: sob ORDERING PHYSICIAN: PREET BOSTON MD PROCEDURE: CXR1VW - CHEST 1VW CHEST 1VW REASON: sob COMPARISON: Study from 07/21/2025 is available. FINDINGS: Single view of the chest was obtained. Lungs are clear. Heart size is normal. There is no pulmonary vascular congestion. There is a right-sided PIC catheter with tip in superior vena cava. There is a nasogastric tube with the tip in the fundus of the stomach. Mediastinum and bony thorax appear unremarkable. IMPRESSION: 1. No acute cardiopulmonary process 2. The support lines are in satisfactory position.. DICTATED BY: GREER FIORE MD DATE: 07/22/251349 ELECTRONICALLY SIGNED BY: GREER FIORE MD DATE: 07/22/25 135 PATIENT: DALLAS BUCHANAN MR#: [id number] : 1970 SEX: F AGE: 55 LOCATION: 2BH ORDER 0100 STATUS: ADM IN REPORT#: [id number] SERVICE 0100 REASON: PICC LINE ORDERING PHYSICIAN: HEATHER LEACH APRN PROCEDURE: CXR1VW - CHEST 1VW EXAM: CR Chest, single view. CLINICAL HISTORY: PICC line COMPARISON: Prior same day chest radiograph. FINDINGS: Right-sided PICC catheter with tip in the cavoatrial junction. Subsegmental atelectasis in the right lower lobe. No evidence of pleural effusion or pneumothorax. The cardiomediastinal silhouette is within normal limits. No acute osseous abnormality. IMPRESSION: Right-sided PICC catheter with tip in the cavoatrial junction. Subsegmental atelectasis in the right lower lobe. No evidence of pleural effusion or pneumothorax. Compared to the prior study, there is interval placement of the right-sided PICC line and interval resolution of the subsegmental atelectasis in the left lower lobe. /[place] DICTATED BY: ELDON MILLER Jr., MD DATE: 07/21/25816 ELECTRONICALLY SIGNED BY: ELDON MILLER Jr., MD DATE: 07/21/25816 PATIENT: DALLAS BUCHANAN MR#: [id number] : 1970 SEX: F AGE: 55 LOCATION: [facility] ORDER 14 STATUS: [facility] REPORT#: [id number] SERVICE 12 REASON: CHEST PAIN/COUGH ORDERING PHYSICIAN: ALHAJI SHINE NP PROCEDURE: CXR1VW - CHEST 1VW EXAM: XR Chest, 1 View. CLINICAL HISTORY: 55 year old female with chest pain and cough. COMPARISON: None provided. FINDINGS: LUNGS: The lungs demonstrate evidence of atelectasis. PLEURAL SPACES: A small right pleural effusion is present. HEART: The heart size is normal. BONES: No acute osseous abnormality. IMPRESSION: 1. Small right pleural effusion and right lung base atelectasis. /[place] DICTATED BY: EDWIGE LEDESMA MD DATE: 07/20/252046 ELECTRONICALLY SIGNED BY: EDWIGE LEDESMA MD DATE: 07/20/252046 PATIENT: DALLAS BUCHANAN MR#: [id number] : 1970 SEX: F AGE: 55 LOCATION: [facility] ORDER 14 STATUS: REG ER REPORT#: [id number] SERVICE 12 REASON: Abdominal Pain ORDERING PHYSICIAN: ALHAJI SHINE NP PROCEDURE: ABD PEL W - CT ABDOMEN/PELVIS W/CONTRAST ADDENDUM REPORT ADDENDUM: Results were shared by telephone at 23:23 pm on 07-20-2025 and acknowledged by Pt nurse Ms. SHIN BOYKIN. /[place] EXAM: CT Abdomen and Pelvis with Intravenous Contrast CLINICAL HISTORY: 55-year-old female with abdominal pain. TECHNIQUE: Axial computed tomography images of the abdomen and pelvis with intravenous contrast. Dose reduction technique was used including one or more of the following: automated exposure control, adjustment of mA and kV according to patient size, and/or iterative reconstruction. CONTRAST: Omnipaque 350, 75 mL COMPARISON: None provided. FINDINGS: LUNG BASES: Atelectasis and scarring at the lung bases. LIVER: Unremarkable. GALLBLADDER AND BILE DUCTS: Tiny gallstone seen. PANCREAS: Unremarkable. SPLEEN: Unremarkable. ADRENAL GLANDS: Unremarkable. KIDNEYS, URETERS, AND BLADDER: Dueñas catheter seen in the bladder lumen. No hydronephrosis or nephrolithiasis. No ureteral calculi. STOMACH AND BOWEL: Edema or loops of small bowel suggesting moderate small bowel enteritis. Free air in the upper abdomen is seen, suggesting perforated bowel. No obstruction. APPENDIX: No CT evidence for appendicitis. PERITONEUM: Moderate ascites in the abdomen and pelvis. No free air under the diaphragm. LYMPH NODES: No lymphadenopathy. REPRODUCTIVE: Unremarkable as visualized. VASCULATURE: No aortic aneurysm. ABDOMINAL WALL AND SOFT TISSUES: There is air in the subcutaneous soft tissue seen anteriorly, suggesting recent postsurgical changes; please correlate with surgical history. BONES: No fracture or suspicious osseous abnormality. IMPRESSION: 1. Moderate small bowel enteritis with free air in the upper abdomen, suggesting perforated bowel versus post surgical changes. No obstruction. 2. Moderate ascites in the abdomen and pelvis. 3. Air in the subcutaneous soft tissue anteriorly, suggesting recent postsurgical changes; please correlate with surgical history. /[place] DICTATED BY: EDWIGE LEDESMA MD DATE: 07/20/25 5258 ELECTRONICALLY SIGNED BY: DATE: EXAM: CT Abdomen and Pelvis with Intravenous Contrast CLINICAL HISTORY: 55-year-old female with abdominal pain. TECHNIQUE: Axial computed tomography images of the abdomen and pelvis with intravenous contrast. Dose reduction technique was used including one or more of the following: automated exposure control, adjustment of mA and kV according to patient size, and/or iterative reconstruction. CONTRAST: Omnipaque 350, 75 mL COMPARISON: None provided. FINDINGS: LUNG BASES: Atelectasis and scarring at the lung bases. LIVER: Unremarkable. GALLBLADDER AND BILE DUCTS: Tiny gallstone seen. PANCREAS: Unremarkable. SPLEEN: Unremarkable. ADRENAL GLANDS: Unremarkable. KIDNEYS, URETERS, AND BLADDER: Dueñas catheter seen in the bladder lumen. No hydronephrosis or nephrolithiasis. No ureteral calculi. STOMACH AND BOWEL: Edema or loops of small bowel suggesting moderate small bowel enteritis. Free air in the upper abdomen is seen, suggesting perforated bowel. No obstruction. APPENDIX: No CT evidence for appendicitis. PERITONEUM: Moderate ascites in the abdomen and pelvis. No free air under the diaphragm. LYMPH NODES: No lymphadenopathy. REPRODUCTIVE: Unremarkable as visualized. VASCULATURE: No aortic aneurysm. ABDOMINAL WALL AND SOFT TISSUES: There is air in the subcutaneous soft tissue seen anteriorly, suggesting recent postsurgical changes; please correlate with surgical history. BONES: No fracture or suspicious osseous abnormality. IMPRESSION: 1. Moderate small bowel enteritis with free air in the upper abdomen, suggesting perforated bowel versus post surgical changes. No obstruction. 2. Moderate ascites in the abdomen and pelvis. 3. Air in the subcutaneous soft tissue anteriorly, suggesting recent postsurgical changes; please correlate with surgical history. /[place] DICTATED BY: EDWIGE LEDESMA MD DATE: 07/20/252317 ELECTRONICALLY SIGNED BY: EDWIGE LEDESMA MD DATE: 07/20/252317 ASSESSMENT: Suspected Bowel Perforation POA Perisplenic and infrasplenic fluid collection with splenomegaly - suspected abscess Hyponatremia Bacterial peritonitis Cholelithiasis Small Bowel Obstruction, Suspected Anastomotic Leak Bilious peritonitis s/p Diagnostic laparoscopy, abdominal washout, drain placement and diverting loop ileostomy creation Atrophic vaginitis hyperkalemia Iron Deficiency anemia Diabetes Mellitus Type 2 POA Acute Kidney Injury POA Septic Shock POA Cirrhosis of liver POA Esophageal Varices Recent Robotic takedown of splenic flexure mobilization, robotic takedown of colovesical fistula with sigmoid colectomy and end-to-end anastomosis surgery PLAN: Bilious peritonitis status post Diagnostic laparoscopy, abdominal washout, drain placement and diverting loop ileostomy creation -Continue close monitoring of the patient -continue physical therapy -Monitor CHRIS drain output -no output in CHRIS drain. Follow up with surgery regarding CHRIS drain removal. -Continue Lactated Ringer's at 75 ml/hr for volume resuscitation and electrolyte replacement -continue Zosyn [day 23] and fluconazole [day 23] -Flexeril 5 mg t.i.d. has been started by the Surgery team. -Probiotics and Fibers have been added for bloating. -Protonix IV increased to twice daily. - Patient has been started on [place] by general surgery for abdominal pain, and is advised to take Diluadid only for breakthrough pain. - Patient was started on fentanyl patch on 08/09/2020 for pain control. - On 08/11, fentanyl patch dose was increased to 25 mcg. Frequency of Dilaudid was increased from q.4h to q.6h. - As per surgery, patient was started on methocarbamol and gabapentin. - HIDA scan positive for acute cholecystitis. Surgery has been made aware. - IR did a Fluoroscopy and ultrasound-guided placement of cholecystotomy tube and cholecystogram on 08/02/2025. -Dr. Sol saw the patient and he recommended 25g of 25% albumin for 3 days. -Gastroenterology is planning to do EGD and they did biopsy from 3 sites. GI said that they will consult radiology to check whether CHRIS drain and cholecystostomy tube are in place. -Surgery wanted to do a CT abdomen and pelvis with IV contrast. CT scan showed perisplenic and infrasplenic fluid collection measuring 6.0 x 6.1 x 8.9 cm, splenomegaly, with spleen measuring 15.2 cm, cholecystostomy tube in situ with decompressed gallbladder, abdominal drain in situ with tip in the pelvis. -GI said that they will consult radiology to check whether CHRIS drain and cholecystostomy tube are in place. -She was assessed for cholecystostomy tube placement in the catheterization laboratory technician. It showed some stones and the tube was flushed. She underwent drainage of perisplenic fluid collection with drainage catheter insertion. G stain and fluid culture are pending. -We ordered T.bilirubin and we will monitor the output from colostomy tube. -We are also planning to add metoclopramide. Perisplenic and infrasplenic fluid collection with splenomegaly * CT scan showed perisplenic and infrasplenic fluid collection measuring 6.0 x 6.1 x 8.9 cm, splenomegaly, with spleen measuring 15.2 cm * IR drained the perisplenic and intra splenic fluid with placement of drainage catheter. * Pending culture results. * Patient is currently on Zosyn and fluconazole. * Follow up with ID recommendations Bacterial Peritonitis * Post Surgical patient with Bacterial peritonitis positive for ESBL * Culture and sensitivity shows susceptibility to Zosyn, Gentamicin and Meropenem. * Likely secondary to post-operative intraabdominal infection with risk of ongoing contamination. * Currently patient is on Zosyn (Day 23) * For her continuos pain she is started on Fentanyl 25mcg. Cholelithiasis * Patient complained of upper abdominal pain * Ultrasound abdomen showed: Cirrhotic-appearing liver * Cholelithiasis and biliary sludge with gallbladder distension and Small volume ascites. * Hida scan shows acute cholecystitis. * Per Surgery: IR to be consulted for cholecystostomy tube placement. * IR did a Fluoroscopy and ultrasound-guided placement of cholecystotomy tube and cholecystogram on 08/02/2025. * IR evaluated patient in the catheterization laboratory technician for cholecystostomy tube placement. Patient was found to have normally positioned tube with some stones for which the tube was flushed.. Small Bowel Obstruction (Resolved) * Patient complaints of abdominal pain which is 9/10 on intensity 07/29/25 * Abdominal Xray showed: Dilated small bowel loops are seen in mid abdomen * Perform Serial abdominal exams * Pain management(avoid excess opioids if ileus is suspected) * Evaluate drain, bowel status * Monitor for resolution vs progression of Ileus/obstruction. 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 - CT abdominal pelvis w/contrast done on 07/20/2025 showed Free air in the upper abdomen is seen, suggesting perforated bowel vs post surgical changes. No obstruction. -underwent Diagnostic laparoscopy, abdominal washout, drain placement and diverting loop ileostomy creation for biliary peritonitis Atrophic vaginitis * Her bleeding is resolved * We did a pelvic examination. * Ordered topical estrogen. * Urinalysis showed cloudy urine, protein 30, trace occult blood, RBC is 11 to 25, WBC is 26 to 50. hyperkalemia * Today his potassium is 3.8 * Will repeat her labs tomorrow. Iron Deficiency anemia * Hemoglobin today is 8.3. * Iron sucrose (venofer) was ordered. * Anemia panel has been ordered. Results showed Iron 24L, %sat 16.3 and TIBC 147L. 9/26/25 * Recommend trending Hgb and transfuse as needed to goal Hgb >7.25 * Iron level is 20L, % saturation 11.9, TIBC 167L, Ferritin 129. 9/ Septic Shock -resolved -Her WBC is 5.6. 08/10/2025 -Her WBC during the presentation was 21.2 -lactic acid is 1.5 on 07/31/2025 -blood and urine culture results are negative Acute Kidney Injury Resolved -Creatinine improved from 1.6-1.1-0.7-0.6-0.6-0.6-0.6-0.6-0.5-0.6-0.6-0.5-0.5-0.3-0.6-0.4-0.6 08/09/2025 -Initial FeNA is 0.1 %, probably secondary to dehydration and NSAIDs overuse. -initial Urine sodium is < 13 and urine creatinine is 132.17. -Avoid nephrotoxic agents, eg. NSAIDS. -Weight patient daily. -Monitor intake and output. -Ordered urinalysis Cirrhosis of liver -Patient has a past history of cirrhosis of liver. - Liver functions are within normal limits. AST 20, ALT 9 and ALP 67. - Avoid NSAIDs and high dose acetaminophen. -Maintain appropriate volume of the patient. -Patient has been started on Spironolactone 25 mg b.i.d. and Lasix 20 mg once daily. 07/25/25 -Albumin was given for the hypotension. -Patients family is requesting that Dr. Sol be involved in the patients care. Supportive measures -Maintain IV fluids, correct electrolytes -Serial abdominal exams -Patent Examiner on avoidance of NSAIDS and other related triggers. -Monitor Vitals and perform morning labs regularly Continue GI prophylaxis with [place] Continue DVT prophylaxis with SCDs, we will avoid heparin due to history of allergies to porcine, we will coordinate with surgery consult on initiation of other anticoagulants ATTESTATION BY PHYSICIAN I have seen and examined the patient. I reviewed the documentation, medical decision making, and treatment plan as noted by the resident provider above. I agree with the findings and plan of care. AYAKA BARR MD, MUHAMMAD H MD Aug 12, 2025 14:22
--- NOTE | 2025-08-12 15:49 | NUR ---
MATTHIAS FISHMAN ROUNDED AT BEDSIDE. SPOKE WITH DAUGHTER AND PATIENT REGARDING TREATMENT PLAN. BOTH VOICED UNDERSTANDING. PATIENT TO CONTINUE WITH FULL LIQUIDS FOR NOW. NOTIFIED OF CHRIS DRAIN NOT DRAINING, STATED WILL TALK TO SURGEON AND WILL PLACE ORDERS FOR POSSIBLE DISCONTINUATION OF DRAIN. ALL QUESTIONS ANSWERED. NO FURTHER ORDERS GIVEN. WILL CONTINUE TO MONITOR.
--- NOTE | 2025-08-12 16:21 | PN ---
This is a 55-year-old female status post sigmoid colectomy with leak requiring loop ileostomy with drain placement by Dr. Gann Interval history: This 55-year-old female seen in her room resting Today patient reports improvement to abdominal discomfort Cholecystostomy tube in place with minimal clear output CHRIS drain with minimal to no output Percutaneous drain with sanguinous output currently cultures pending Patient is able to tolerate full liquids but having little appetite Patient states that pain medications administered yesterday helped significantly No other acute events reported at this time ostomy functioning properly Physical exam General: Awake alert and oriented Heart: Regular rate and rhythm} Lungs: Clear to auscultation no distress Abdomen: [Soft, nontender, nondistended Ostomy intact Percutaneous drain in place with minimal sanguinous output Cholecystostomy tube with clear output CHRIS drain with minimal to no output Assessment : This is a 55-year-old female status post sigmoid colectomy with leak requiring loop ileostomy with drain placement by Dr. Gann Plan: Patient to continue with current pain management regimen started by Dr. Gann Patient encouraged to continue with full liquid diet Patient encouraged to ambulate Surgical team to follow patient closely Nursing to report any further acute events Nursing to reach out to radiology to inform them about output from cholecystostomy tube for potential adjustments to placement Dr. Gann has been updated on patient's status Surgical case has been discussed with my supervising physician in the above plan was formulated and agreed upon We appreciate the hospitalist team for us to participate in patient's care. Greater than 45 minutes of time spent patient, reviewing chart, working on documentation Vitals/Labs Vital Signs Date Time Temp Pulse Resp B/P (MAP) Pulse Ox O2 Delivery O2 Flow Rate FiO2 08/12/25 13:01 95 Room Air* 0 21 08/12/25 11:59 97.9 83 19 100/65 Laboratory Tests 08/12/25 04:14 Medications Current Medications Sodium Chloride 1,000 ml @ 0 mls/hr ONCE ONCE IV; Start 07/20/25 at 18:30; Stop 07/20/25 at 18:31; Status DC Piperacillin Sod/ Tazobactam Sod 50 ml @ 200 mls/hr ONCE STAT IVPB Last administered on 07/20/25at 20:32; Start 07/20/25 at 19:15; Stop 07/20/25 at 19:29; Status DC Sodium Chloride 2,109 ml @ 703 mls/hr ONCE ONCE IV Last administered on 07/20/25at 20:28; Start 07/20/25 at 19:30; Stop 07/20/25 at 22:29; Status DC Iohexol 75 ml STK-MED ONCE IV; Start 07/20/25 at 20:31; Stop 07/20/25 at 20:31; Status DC Vancomycin HCl 1 gm ONCE STAT IV Last administered on 07/20/25at 22:06; Start 07/20/25 at 21:23; Stop 07/20/25 at 21:26; Status DC Morphine Sulfate 4 mg ONCE ONCE IVP Last administered on 07/20/25at 23:15; Start 07/20/25 at 23:30; Stop 07/20/25 at 23:31; Status DC Ondansetron HCl 4 mg ONCE ONCE IVP Last administered on 07/20/25at 23:14; Start 07/20/25 at 23:30; Stop 07/20/25 at 23:31; Status DC Norepinephrine 250 ml @ 0 mls/hr PROTOCOL IV Last administered on 07/21/25at 10:56; Start 07/20/25 at 23:30; Stop 08/03/25 at 08:27; Status DC Piperacillin Sod/ Tazobactam Sod 3.375 gm Q12H IV Last administered on 07/30/25at 23:55; Start 07/21/25 at 00:00; Stop 07/31/25 at 00:00; Status DC Acetaminophen 650 mg Q6H PRN RC; Start 07/21/25 at 00:00; Stop 07/27/25 at 16:22; Status DC Pantoprazole Sodium 40 mg DAILY IV Last administered on 07/26/25at 08:55; Start 07/21/25 at 09:00; Stop 07/26/25 at 09:31; Status DC Ondansetron HCl 4 mg Q6H PRN IV; Start 07/21/25 at 00:00; Stop 07/21/25 at 13:18; Status DC Morphine Sulfate 2 mg Q4H PRN IVP Last administered on 07/21/25at 04:46; Start 07/21/25 at 00:30; Stop 07/21/25 at 13:18; Status DC Lactated Ringer's 1,000 ml @ 75 mls/hr [id number] IV Last administered on 07/21/25at 02:57; Start 07/21/25 at 00:00; Stop 07/21/25 at 13:17; Status DC Insulin Human Regular INSULIN SLIDING SCAL... ACHS SQ Last administered on 08/12/25at 12:01; Start 07/21/25 at 07:30; Stop 08/20/25 at 07:29 Vasopressin 20 units/Sodium Chloride 100 ml @ 0 mls/hr PROTOCOL IV Last administered on 07/21/25at 00:10; Start 07/21/25 at 00:30; Stop 08/03/25 at 08:27; Status DC Vasopressin 20 units STK-MED ONCE .ROUTE; Start 07/21/25 at 00:10; Stop 07/21/25 at 00:11; Status DC Magnesium Sulfate 50 ml @ 0 mls/hr PROTOCOL PRN IV Last administered on 08/01/25at 06:05; Start 07/21/25 at 07:00; Stop 08/20/25 at 06:59 Acetaminophen 100 ml @ As Directed STK-MED ONCE .ROUTE; Start 07/21/25 at 09:42; Stop 07/21/25 at 09:42; Status DC Famotidine 20 mg STK-MED ONCE IV; Start 07/21/25 at 09:42; Stop 07/21/25 at 09:42; Status DC Albumin Human 500 ml @ As Directed STK-MED ONCE IV; Start 07/21/25 at 09:45; Stop 07/21/25 at 09:45; Status DC Phenylephrine HCl 10 mg STK-MED ONCE IV; Start 07/21/25 at 09:48; Stop 07/21/25 at 09:48; Status DC Dexamethasone Sodium Phosphate 10 mg STK-MED ONCE .ROUTE; Start 07/21/25 at 09:52; Stop 07/21/25 at 09:52; Status DC Ondansetron HCl 4 mg STK-MED ONCE .ROUTE; Start 07/21/25 at 09:52; Stop 07/21/25 at 09:52; Status DC Lidocaine HCl 100 mg STK-MED ONCE .ROUTE; Start 07/21/25 at 09:52; Stop 07/21/25 at 09:52; Status DC Succinylcholine Chloride 200 mg STK-MED ONCE .ROUTE; Start 07/21/25 at 09:53; Stop 07/21/25 at 09:53; Status DC Glycopyrrolate 1 mg STK-MED ONCE .ROUTE; Start 07/21/25 at 09:53; Stop 07/21/25 at 09:53; Status DC Fentanyl Citrate 100 mcg STK-MED ONCE .ROUTE; Start 07/21/25 at 09:54; Stop 07/21/25 at 09:54; Status DC Propofol 200 mg STK-MED ONCE IV; Start 07/21/25 at 09:54; Stop 07/21/25 at 09:54; Status DC Neostigmine Methylsulfate 10 mg STK-MED ONCE IV; Start 07/21/25 at 09:54; Stop 07/21/25 at 09:54; Status DC Rocuronium [place] 50 mg STK-MED ONCE .ROUTE; Start 07/21/25 at 09:54; Stop 07/21/25 at 09:54; Status DC Ketamine HCl 50 mg STK-MED ONCE .ROUTE; Start 07/21/25 at 09:55; Stop 07/21/25 at 09:56; Status DC Epinephrine HCl 1 mg STK-MED ONCE .ROUTE; Start 07/21/25 at 10:03; Stop 07/21/25 at 10:03; Status DC Midazolam HCl 2 mg STK-MED ONCE .ROUTE; Start 07/21/25 at 10:05; Stop 07/21/25 at 10:05; Status DC Indocyanine Green 25 mg STK-MED ONCE IJ; Start 07/21/25 at 10:49; Stop 07/21/25 at 10:49; Status DC Ephedrine Sulfate 50 mg STK-MED ONCE .ROUTE; Start 07/21/25 at 11:17; Stop 07/21/25 at 11:17; Status DC Bupivacaine HCl 5 mg STK-MED ONCE .ROUTE Last administered on 07/21/25at 12:14; Start 07/21/25 at 11:49; Stop 07/21/25 at 11:49; Status DC Sodium Bicarbonate 200 ml @ As Directed STK-MED ONCE .ROUTE; Start 07/21/25 at 12:19; Stop 07/21/25 at 12:19; Status DC Fentanyl Citrate 100 mcg STK-MED ONCE .ROUTE; Start 07/21/25 at 12:23; Stop 07/21/25 at 12:23; Status DC Phytonadione 10 mg STK-MED ONCE .ROUTE; Start 07/21/25 at 13:05; Stop 07/21/25 at 13:05; Status DC Lactated Ringer's 1,000 ml @ 75 mls/hr [id number] IV Last administered on 07/24/25at 09:27; Start 07/21/25 at 13:30; Stop 07/24/25 at 11:09; Status DC Morphine Sulfate 4 mg Q3H PRN IV Last administered on 07/26/25at 10:51; Start 07/21/25 at 13:30; Stop 07/26/25 at 16:29; Status DC Ondansetron HCl 4 mg Q4H PRN IVP; Start 07/21/25 at 13:30; Stop 08/20/25 at 13:29 Fentanyl Citrate 100 mcg STK-MED ONCE .ROUTE; Start 07/21/25 at 13:26; Stop 07/21/25 at 13:26; Status DC Sodium Bicarbonate 150 meq/Sodium Chloride 1,150 ml @ 0 mls/hr Q0M IVP; Start 07/21/25 at 14:00; Stop 07/26/25 at 09:31; Status DC Sodium Bicarbonate 100 meq ONCE ONCE IV; Start 07/21/25 at 14:00; Stop 07/21/25 at 14:23; Status DC Metronidazole/ Sodium Chloride 500 mg Q8H IV; Start 07/21/25 at 14:00; Stop 07/21/25 at 13:40; Status DC Fluconazole/ Sodium Chloride 200 mg Q24H IVPB Last administered on 08/11/25at 22:21; Start 07/21/25 at 21:00; Stop 08/20/25 at 20:59 Pharmacy Profile Note 1 each ONCE MISC; Start 07/21/25 at 15:30; Stop 07/21/25 at 15:16; Status DC Thiamine HCl 100 mg/Sodium Chloride 50 ml @ 100 mls/hr Q24H IM; Start 07/21/25 at 15:30; Stop 07/21/25 at 16:25; Status DC Sodium Bicarbonate 100 meq ONCE ONCE IV Last administered on 07/21/25at 16:42; Start 07/21/25 at 16:30; Stop 07/21/25 at 16:31; Status DC Thiamine HCl 100 mg DAILY IVP Last administered on 08/12/25at 08:35; Start 07/22/25 at 21:00; Stop 08/21/25 at 20:59 Diatrizoate Meglum/ Diatrizoate Sod 30 ml STK-MED ONCE .ROUTE; Start 07/23/25 at 15:13; Stop 07/23/25 at 15:13; Status DC Potassium Chloride 100 ml @ 100 mls/hr AD PRN IV Last administered on 07/30/25at 06:23; Start 07/24/25 at 08:30; Stop 08/23/25 at 08:29 Potassium Chloride 20 meq AD PRN PO Last administered on 07/31/25at 08:15; Start 07/24/25 at 08:30; Stop 08/23/25 at 08:29 Potassium Chloride 20 meq AD PRN PO Last administered on 07/27/25at 20:33; Start 07/24/25 at 08:30; Stop 08/23/25 at 08:29 Hydromorphone HCl 0.5 mg Q4H PRN IVP Last administered on 07/29/25at 08:22; Start 07/24/25 at 10:00; Stop 07/29/25 at 09:59; Status DC Spironolactone 25 mg BID PO Last administered on 07/26/25at 08:56; Start 07/25/25 at 21:00; Stop 07/26/25 at 09:01; Status DC Albumin Human 100 ml @ 0 mls/hr ONCE ONCE IV Last administered on 07/25/25at 17:05; Start 07/25/25 at 10:30; Stop 07/25/25 at 10:31; Status DC Albumin Human 100 ml @ 0 mls/hr ONCE IV Last administered on 07/25/25at 13:43; Start 07/25/25 at 12:00; Stop 07/26/25 at 11:59; Status DC Cyclobenzaprine HCl 5 mg TID PO Last administered on 07/26/25at 14:19; Start 07/25/25 at 14:00; Stop 07/26/25 at 14:00; Status DC Furosemide 20 mg DAILY PO Last administered on 08/02/25at 09:42; Start 07/25/25 at 11:00; Stop 08/02/25 at 11:53; Status DC Pantoprazole Sodium 40 mg BID IV Last administered on 08/12/25 08:35; Start 07/26/25 at 21:00; Stop 08/20/25 at 08:59 Psyllium Hydrophilic Mucilloid 1 tbs BID PO Last administered on 08/12/25 08:33; Start 07/26/25 at 21:00; Stop 08/25/25 at 20:59 Lactobacillus Rhamnosus 1 each DAILY20 PO Last administered on 08/11/25at 22:19; Start 07/26/25 at 20:00; Stop 08/25/25 at 19:59 Iron Sucrose 200 mg ONCE ONCE IV Last administered on 07/26/25at 14:19; Start 07/26/25 at 14:00; Stop 07/26/25 at 14:01; Status DC Lidocaine 1 patch DAILY TP Last administered on 08/12/25 08:35; Start 07/28/25 at 09:00; Stop 08/27/25 at 08:59 Simethicone 80 mg Q6H6 PO Last administered on 08/12/25at 11:59; Start 07/27/25 at 12:00; Stop 08/26/25 at 11:59 Acetaminophen 500 mg Q6H6 PRN PO; Start 07/27/25 at 16:30; Stop 08/07/25 at 12:15; Status DC Lidocaine 1 patch ONCE ONCE TP Last administered on 07/27/25at 19:25; Start 07/27/25 at 19:30; Stop 07/27/25 at 19:31; Status DC Albumin Human 50 ml @ 0 mls/hr AD ONCE IV Last administered on 07/28/25at 17:44; Start 07/28/25 at 15:30; Stop 07/28/25 at 15:31; Status DC Albumin Human 100 ml @ 0 mls/hr AD ONCE IV Last administered on 07/29/25at 14:26; Start 07/29/25 at 12:30; Stop 07/29/25 at 12:31; Status DC Hydromorphone HCl 0.5 mg Q4H PRN IVP Last administered on 08/03/25at 13:09; Start 07/29/25 at 13:30; Stop 08/03/25 at 13:29; Status DC Gabapentin 100 mg TID PO Last administered on 08/01/25at 20:14; Start 07/29/25 at 14:00; Stop 08/02/25 at 09:21; Status DC Clotrimazole 1 GM BID TP Last administered on 08/12/25at 08:36; Start 07/29/25 at 21:00; Stop 08/28/25 at 20:59 Sucralfate 1 gm ACHS PO Last administered on 08/12/25at 16:02; Start 07/29/25 at 21:00; Stop 08/28/25 at 20:59 Piperacillin Sod/ Tazobactam Sod 3.375 gm Q8H IVPB Last administered on 08/10/25at 04:05; Start 07/31/25 at 11:30; Stop 08/10/25 at 11:29; Status DC Sodium Chloride 50 ml AD IV; Start 07/31/25 at 11:30; Stop 07/31/25 at 11:12; Status DC Iron Sucrose 300 mg/Sodium Chloride 250 ml @ 83 mls/hr ONCE ONCE IV Last administered on 07/31/25at 13:36; Start 07/31/25 at 12:00; Stop 07/31/25 at 15:00; Status DC Fentanyl 25 mcg Q72H TD; Start 07/31/25 at 14:30; Stop 07/31/25 at 14:44; Status DC Acetaminophen/ Hydrocodone Bitart 1 tab Q4H PRN PO Last administered on 08/05/25at 14:57; Start 07/31/25 at 16:30; Stop 08/05/25 at 16:29; Status DC Chromium/Copper/ Manganese/Zinc 3 ml/Multivitamins/ Minerals 10 ml/ Amino Acids/ Electrolytes/ Dextrose 2,000 ml @ 80 mls/hr ONCE ONCE IV Last administered on 08/01/25at 20:25; Start 08/01/25 at 20:00; Stop 08/02/25 at 20:59; Status DC Albumin Human 100 ml @ 0 mls/hr AD ONCE IV Last administered on 08/02/25at 09:41; Start 08/02/25 at 09:30; Stop 08/02/25 at 09:33; Status DC Lidocaine HCl 20 ml STK-MED ONCE .ROUTE; Start 08/02/25 at 11:24; Stop 08/02/25 at 11:24; Status DC Iohexol 50 ml STK-MED ONCE IV; Start 08/02/25 at 11:24; Stop 08/02/25 at 11:25; Status DC Estrogens Conjugated 1 appl ONCE ONCE VG; Start 08/02/25 at 12:00; Stop 08/02/25 at 12:01; Status DC Fentanyl Citrate 100 mcg STK-MED ONCE .ROUTE; Start 08/02/25 at 11:53; Stop 08/02/25 at 11:53; Status DC Midazolam HCl 2 mg STK-MED ONCE .ROUTE; Start 08/02/25 at 11:54; Stop 08/02/25 at 11:54; Status DC Midazolam HCl 2 mg STK-MED ONCE .ROUTE; Start 08/02/25 at 12:15; Stop 08/02/25 at 12:16; Status DC Multivitamins/ Minerals 10 ml/ Chromium/Copper/ Manganese/Zinc 3 ml/Amino Acids/ Electrolytes/ Dextrose 2,000 ml @ 80 mls/hr ONCE ONCE IV Last administered on 08/02/25at 21:08; Start 08/02/25 at 20:00; Stop 08/03/25 at 18:39; Status DC Estrogens Conjugated 1 appl ONCE ONCE VG Last administered on 08/02/25at 18:47; Start 08/02/25 at 18:30; Stop 08/02/25 at 18:31; Status DC Albumin Human 50 ml @ 0 mls/hr Q12H IV; Start 08/02/25 at 18:30; Stop 08/02/25 at 20:04; Status DC Albumin Human 50 ml @ 100 mls/hr Q12H IV Last administered on 08/05/25at 10:12; Start 08/02/25 at 21:30; Stop 08/05/25 at 09:59; Status DC Hydromorphone HCl 0.5 mg Q4H PRN IVP Last administered on 08/07/25at 05:09; Start 08/03/25 at 18:00; Stop 08/07/25 at 10:03; Status DC Chromium/Copper/ Manganese/Zinc 3 ml/Multivitamins/ Minerals 10 ml/ Amino Acids/ Electrolytes/ Dextrose 2,000 ml @ 80 mls/hr ONCE ONCE IV Last administered on 08/03/25at 21:51; Start 08/03/25 at 20:00; Stop 08/04/25 at 12:47; Status DC Chromium/Copper/ Manganese/Zinc 3 ml/Multivitamins/ Minerals 10 ml/ Amino Acids/ Electrolytes/ Dextrose 2,000 ml @ 80 mls/hr ONCE ONCE IV Last administered on 08/04/25at 21:54; Start 08/04/25 at 21:00; Stop 08/05/25 at 21:59; Status DC Metoclopramide HCl 5 mg BID IVP Last administered on 08/12/25at 08:35; Start 08/04/25 at 21:00; Stop 09/03/25 at 20:59 Iohexol 75 ml STK-MED ONCE IV; Start 08/04/25 at 14:27; Stop 08/04/25 at 14:26; Status DC Propofol 200 mg STK-MED ONCE IV; Start 08/05/25 at 12:54; Stop 08/05/25 at 12:54; Status DC Lidocaine HCl 100 mg STK-MED ONCE .ROUTE; Start 08/05/25 at 12:54; Stop 08/05/25 at 12:55; Status DC Pantoprazole Sodium 40 mg BID IVP Last administered on 08/05/25at 20:25; Start 08/05/25 at 21:00; Stop 08/06/25 at 08:39; Status DC Multivitamins/ Minerals 10 ml/ Amino Acids/ Electrolytes/ Dextrose 2,000 ml @ 80 mls/hr ONCE ONCE IV Last administered on 08/06/25at 04:53; Start 08/06/25 at 05:00; Stop 08/07/25 at 05:59; Status DC Pharmacy Profile Note 1 each ONCE MISC; Start 08/06/25 at 16:00; Stop 08/07/25 at 07:07; Status DC Lidocaine HCl/Al Hydroxide/Mg Hydroxide/ Dicyclomine HCl 20ML OR AD ONCE PO Last administered on 08/06/25at 16:45; Start 08/06/25 at 16:30; Stop 08/07/25 at 16:29; Status DC Multivitamins/ Minerals 10 ml/ Amino Acids/ Electrolytes/ Dextrose 2,000 ml @ 80 mls/hr ONCE ONCE IV; Start 08/07/25 at 07:00; Stop 08/07/25 at 06:32; Status DC Multivitamins/ Minerals 10 ml/ Chromium/Copper/ Manganese/Zinc 3 ml/Amino Acids/ Electrolytes/ Dextrose 2,000 ml @ 80 mls/hr ONCE ONCE IV Last administered on 08/07/25at 06:41; Start 08/07/25 at 07:00; Stop 08/08/25 at 04:36; Status DC Acetaminophen 500 mg Q6H6 PRN PO; Start 08/07/25 at 10:00; Stop 08/07/25 at 10:03; Status DC Hydromorphone HCl 0.5 mg Q4H PRN IVP Last administered on 08/10/25at 20:27; Start 08/07/25 at 10:00; Stop 08/11/25 at 10:32; Status DC Acetaminophen/ Hydrocodone Bitart 1 tab Q4H PRN PO Last administered on 08/12/25at 00:46; Start 08/07/25 at 12:30; Stop 08/12/25 at 12:29; Status DC Chromium/Copper/ Manganese/Zinc 3 ml/Amino Acids/ Electrolytes/ Dextrose 2,000 ml @ 80 mls/hr ONCE ONCE IV; Start 08/08/25 at 05:00; Stop 08/08/25 at 04:59; Status DC Chromium/Copper/ Manganese/Zinc 3 ml/Amino Acids/ Electrolytes/ Dextrose 2,000 ml @ 80 mls/hr ONCE ONCE IV Last administered on 08/08/25at 05:51; Start 08/08/25 at 07:00; Stop 08/09/25 at 05:18; Status DC Chromium/Copper/ Manganese/Zinc 3 ml/Amino Acids/ Electrolytes/ Dextrose 2,000 ml @ 80 mls/hr ONCE ONCE IV Last administered on 08/09/25at 06:11; Start 08/09/25 at 07:00; Stop 08/10/25 at 07:59; Status DC Lidocaine HCl 50 ml STK-MED ONCE .ROUTE; Start 08/09/25 at 09:59; Stop 08/09/25 at 09:59; Status DC Iohexol 50 ml STK-MED ONCE IV; Start 08/09/25 at 09:59; Stop 08/09/25 at 09:59; Status DC Sodium Chloride 10 ml Q8H IJ Last administered on 08/12/25at 10:32; Start 08/09/25 at 11:00; Stop 09/08/25 at 10:59 Fentanyl 12 mcg Q72H TD; Start 08/09/25 at 13:00; Stop 08/09/25 at 15:19; Status DC Fentanyl Citrate 100 mcg STK-MED ONCE .ROUTE Last administered on 08/09/25at 16:15; Start 08/09/25 at 13:17; Stop 08/09/25 at 13:17; Status DC Midazolam HCl 2 mg STK-MED ONCE .ROUTE Last administered on 08/09/25at 16:15; Start 08/09/25 at 13:17; Stop 08/09/25 at 13:18; Status DC Fentanyl 12 mcg Q72H TD Last administered on 08/09/25 15:38; Start 08/09/25 at 15:30; Stop 08/11/25 at 10:32; Status DC Chromium/Copper/ Manganese/Zinc 3 ml/Multivitamins/ Minerals 10 ml/ Amino Acids/ Electrolytes/ Dextrose 2,000 ml @ 80 mls/hr ONCE ONCE IV Last administered on 08/10/25at 09:54; Start 08/10/25 at 08:30; Stop 08/11/25 at 09:29; Status DC Piperacillin Sod/ Tazobactam Sod 3.375 gm Q8H IVPB Last administered on 08/12/25 13:36; Start 08/10/25 at 13:00; Stop 08/20/25 at 12:59 Fentanyl 25 mcg Q72H TD; Start 08/12/25 at 15:30; Stop 08/12/25 at 16:00; Status DC Hydromorphone HCl 0.5 mg Q6H PRN IVP Last administered on 08/12/25at 16:02; Start 08/11/25 at 11:00; Stop 08/16/25 at 10:59 Methocarbamol 500 mg BID PO Last administered on 08/12/25at 08:35; Start 08/11/25 at 16:00; Stop 09/10/25 at 15:59 Gabapentin 100 mg TID PO Last administered on 08/12/25 13:36; Start 08/11/25 at 21:00; Stop 09/10/25 at 20:59 Multivitamins/ Minerals 10 ml/ Chromium/Copper/ Manganese/Zinc 3 ml/Amino Acids/ Electrolytes/ Dextrose 2,000 ml @ 80 mls/hr ONCE ONCE IV; Start 08/12/25 at 20:00; Stop 08/13/25 at 20:59 Fat Emulsion Intravenous 250 ml @ 42 mls/hr DAILY10 IV; Start 08/13/25 at 10:00; Stop 09/12/25 at 09:59 Fentanyl 25 mcg Q72H TD; Start 08/12/25 at 21:00; Stop 08/17/25 at 20:59 BENEDICTO OBRIEN Jr. PAC Aug 12, 2025 16:21
[2025-08-12] MEDS: COMPOUND PO NARCOTIC 1 EACH TD SCH (21:00)
--- NOTE | 2025-08-12 22:30 | PN ---
INFECTIOUS DISEASE PROGRESS NOTE Date of Service: Aug 12, 2025 SUBJECTIVE: Patient was seen and examined at bedside in room 432. Patient is awake, alert and oriented x3. Patient had a low-grade fever of 100.0 last night but no fever this morning, temperature is 97.9. Will continue on Zosyn and fluconazole and continue to monitor. Continues on PPN and now on full liquid diet. No nausea or vomiting reported at the time of visit today. Very small amount of bloody drainage on the left perisplenic abscess drainage catheter. Participating well with physical therapy. PHYSICAL EXAM EYES: Anicteric. Pupils equal and reactive. HENT: No oral thrush seen, moist Oral mucosa. NECK: Supple, no JVD or thyromegaly. LUNGS: Good air entry. No rales, no rhonchi. CARDIOVASCULAR: S1, S2 regular. No murmur heard. ABDOMEN: Soft, non tender, bowel sounds present, no organomegaly. Left CHRIS drain. Left Perisplenic abscess percutaneous drainage catheter. Right ileostomy. Right cholecystostomy tube. CENTRAL NERVOUS SYSTEM: Awake, alert, oriented x 3. SKIN: No rashes, no swelling. LYMPHATICS: No peripheral lymphadenopathy. MUSCULOSKELETAL: No joint swelling, erythema or tenderness. EXTREMITIES: No cyanosis or clubbing. BACK: No deformity, no pressure ulcer. GENITOURINARY: No dysuria or hematuria. Vital Sign (Last 12 Hours) 08/12/25 08/12/25 08/12/25 08/12/25 11:59 13:01 20:00 22:20 Temp 97.9 98.8 Pulse 83 92 93 Resp 19 18 B/P (MAP) 100/65 107/66 110/60 Pulse Ox 96 95 96 O2 Delivery Room Air Room Air* Room Air O2 Flow Rate 0 FiO2 21 Intake & Output (last 24hrs) 08/11/25 08/11/25 08/12/25 15:00 23:00 07:00 Intake Total 1.0 ml Output Total 1210 ml Balance -1209.0 ml LABS: Laboratory: Test 08/12/25 19:37 08/12/25 04:14 08/11/25 02:06 Range/Units Whole Blood Glucose 217 #H 70-110 MG/DL White Blood Count 4.6 L 4.8-10.8 K/uL Red Blood Count 2.84 L 4.00-5.50 MIL/uL Hemoglobin 8.3 L 12.0-16.0 g/dL Hematocrit 26.5 L 36-48 % Mean Corpuscular Volume 93.3 79-99 fL Mean Corpuscular Hemoglobin 29.2 27.0-33.0 pg Mean Corpuscular Hemoglobin Concent 31.3 L 32.0-36.0 g/dL Red Cell Distribution Width 17.6 H 11.0-15.5 % Platelet Count 195 130-400 K/uL Mean Platelet Volume 10.0 7.5-10.5 fL Nucleated Red Blood Cells 0.0 0.0-0.19 % Sodium Level 135 L 136-145 mmol/L Potassium Level 3.8 3.5-5.1 mmol/L Chloride Level 103 101-111 mmol/L Carbon Dioxide Level 21 21-32 mmol/L Blood Urea Nitrogen 15 7-18 mg/dL Creatinine 0.7 0.5-1.0 mg/dL Glomerular Filtration Rate Calc 101 >90 mL/min Random Glucose 169 H 70-105 mg/dL Total Calcium 8.4 L 8.5-10.1 mg/dL Prothrombin Time 13.8 H 9.6-11.6 SEC Prothromb Time International Ratio 1.34 H 0.85-1.15 Activated Partial Thromboplast Time 32.2 26.3-35.5 SEC Phosphorus Level 2.7 2.5-4.9 mg/dL Magnesium Level 1.90 1.80-2.40 mg/dL Total Bilirubin 0.5 0.2-1.0 mg/dL Aspartate Amino Transf (AST/SGOT) 34 10-37 U/L Alanine Aminotransferase (ALT/SGPT) 14 12-78 U/L Alkaline Phosphatase 121 50-136 U/L Total Protein 7.2 6.0-8.3 g/dL Albumin 2.5 L 3.5-5.0 g/dL ASSESSMENT: Acute cholecystitis, s/p cholecystostomy tube placement on 08/02/2025. Concern for cholecystostomy tube dislodgement status post cholecystogram with findings of multiple gallstones on 08/09/2025. Perisplenic abscess, s/p CT-guided drainage placement on 08/09/2025. Persistent abdominal pain, s/p EGD with findings acute gastritis.. Hypoxic respiratory failure requiring oxygen support, resolved. Septic shock. Generalized peritonitis with ESBL and E coli infection. Infection with multidrug resistant organism. Hypoalbuminemia. Suspected bowel perforation, s/p diagnostic laparoscopy, abdominal washout, ileostomy creation and CHRIS drain placement on 07/21/2025. Diabetes mellitus. Recent colovesical fistula repair with sigmoid colon resection and anastomosis on 07/09/2025 PLAN: Continue Zosyn. Continue fluconazole. Continue pain management. Continue GI prophylaxis. Continue antidiabetics. Continue nutritional support, currently on full liquids and PPN. Continue drainage tube care. Continue physical therapy. This case was reviewed and discussed with my supervising physician Dr. Roger and the above assessment and plan was formulated and agreed upon. ATTESTATION BY PHYSICIAN I have seen and examined the patient. I reviewed the documentation, medical decision making, and treatment plan as noted by the mid-level provider above. I agree with the findings and plan of care. AMIE ROGER MD, [facility]TA L [facility] Aug 12, 2025 22:30
[2025-08-12] MEDS: M.V.I. IV [ADULT] 10 ML, MULTITRACE-4 ADULT 10ML VIAL 3 ML in CLINIMIX-E4.25%AA/D5+LYT2... IV ONE (22:38)
[2025-08-13] VITALS (7 sets, daily range): BP systolic 100–124; BP diastolic 54–74; PULSE 74–102; RESP 18–20; TEMP 97.9–98.4; O2SAT 96–98
[2025-08-13] MEDS: HYDROcodone/APAP 5/325 1 TAB TABLET PO PRN (01:13)
[2025-08-13 05:00] LABS: NUCLEATED RED BLOOD CELLS 0.0 % (0.0-0.19); PLATELET COUNT (AUTO) 183.0 K/uL (130-400); RED BLOOD CELL COUNT(AUTO) 2.97 MIL/uL (4.00-5.50); RED CELL DISTRIBUTION WIDTH 17.3 % (11.0-15.5); WHITE BLOOD COUNT (AUTO) 3.9 K/uL (4.8-10.8)
[2025-08-13 05:22] LABS: CREATININE 0.7 mg/dL (0.5-1.0); GLOMERULAR FILTR. RATE CALC 101.0 mL/min (>90); GLUCOSE,RANDOM 124.0 mg/dL (70-105); SODIUM SERUM 137.0 mmol/L (136-145); UREA NITROGEN, BLOOD 9.0 mg/dL (7-18)
[2025-08-13] MEDS: FAT EMULSIONS 20% 250ML 250 ML IV SCH (10:28)
--- NOTE | 2025-08-13 11:30 | PN ---
INFECTIOUS DISEASE PROGRESS NOTE Date of Service: Aug 13, 2025 SUBJECTIVE: This 55 year old female patient is being seen today at bedside. Awake, alert and oriented x3. No fever or chills. She remains on Zosyn and fluconazole. She is tolerating full liquid diet well. She has multiple drains. No acute events are reported over night by nurse. We continue to follow patient closely. PHYSICAL EXAM EYES: Anicteric. Pupils equal and reactive. HENT: No oral thrush seen, moist Oral mucosa. NECK: Supple, no JVD or thyromegaly. LUNGS: Good air entry. No rales, no rhonchi. CARDIOVASCULAR: S1, S2 regular. No murmur heard. ABDOMEN: Soft, non tender, bowel sounds present, no organomegaly. Left CHRIS drain. Left Perisplenic abscess percutaneous drainage catheter. Right ileostomy. Right cholecystostomy tube. CENTRAL NERVOUS SYSTEM: Awake, alert, oriented x 3. SKIN: No rashes, no swelling. LYMPHATICS: No peripheral lymphadenopathy. MUSCULOSKELETAL: No joint swelling, erythema or tenderness. EXTREMITIES: No cyanosis or clubbing. BACK: No deformity, no pressure ulcer. GENITOURINARY: No dysuria or hematuria. Vital Sign (Last 12 Hours) 08/13/25 08/13/25 08/13/25 00:00 04:00 08:00 Temp 98.2 98.1 98.2 Pulse 96 79 85 Resp 18 20 18 B/P (MAP) 107/56 100/54 112/67 Pulse Ox 96 95 97 O2 Delivery Room Air Room Air Room Air Intake & Output (last 24hrs) 08/12/25 08/12/25 08/13/25 15:00 23:00 07:00 Output Total 800 ml 1030 ml 1600 ml Balance -800 ml -1030 ml -1600 ml LABS: Laboratory: Test 08/13/25 05:07 08/13/25 04:53 Range/Units Whole Blood Glucose 117 H 70-110 MG/DL White Blood Count 3.9 L 4.8-10.8 K/uL Red Blood Count 2.97 L 4.00-5.50 MIL/uL Hemoglobin 8.9 L 12.0-16.0 g/dL Hematocrit 27.6 L 36-48 % Mean Corpuscular Volume 92.9 79-99 fL Mean Corpuscular Hemoglobin 30.0 27.0-33.0 pg Mean Corpuscular Hemoglobin Concent 32.2 32.0-36.0 g/dL Red Cell Distribution Width 17.3 H 11.0-15.5 % Platelet Count 183 130-400 K/uL Mean Platelet Volume 9.4 7.5-10.5 fL Nucleated Red Blood Cells 0.0 0.0-0.19 % Sodium Level 137 136-145 mmol/L Potassium Level 4.0 3.5-5.1 mmol/L Chloride Level 106 101-111 mmol/L Carbon Dioxide Level 21 21-32 mmol/L Blood Urea Nitrogen 9 7-18 mg/dL Creatinine 0.7 0.5-1.0 mg/dL Glomerular Filtration Rate Calc 101 >90 mL/min Random Glucose 124 H 70-105 mg/dL Total Calcium 8.5 8.5-10.1 mg/dL ASSESSMENT: Acute cholecystitis, s/p cholecystostomy tube placement on 08/02/2025. Concern for cholecystostomy tube dislodgement status post cholecystogram with findings of multiple gallstones on 08/09/2025. Perisplenic abscess, s/p CT-guided drainage placement on 08/09/2025. Persistent abdominal pain, s/p EGD with findings acute gastritis.. Hypoxic respiratory failure requiring oxygen support, resolved. Septic shock. Generalized peritonitis with ESBL and E coli infection. Infection with multidrug resistant organism. Hypoalbuminemia. Suspected bowel perforation, s/p diagnostic laparoscopy, abdominal washout, ileostomy creation and CHRIS drain placement on 07/21/2025. Diabetes mellitus. Recent colovesical fistula repair with sigmoid colon resection and anastomosis on 07/09/2025 PLAN: Continue Zosyn. Continue fluconazole. Continue pain management. Continue GI prophylaxis. Continue antidiabetics. Continue nutritional support, currently on full liquids and PPN. Continue drainage tube care. Continue physical therapy. This case was reviewed and discussed with my supervising physician Dr. Tripathi and the above assessment and plan was formulated and agreed upon. ANNABELLA CORRAL Aug 13, 2025 11:30
--- NOTE | 2025-08-13 12:55 | PN ---
NEPHROLOGY PROGRESS NOTE Date/Time Patient Seen: Aug 13, 2025 SUBJECTIVE: This is a 55-year-old female with a past medical history of diabetes mellitus type 2, liver cirrhosis, esophageal varices. He presented to the emergency room with chief complain of abdominal pain. CT of the abdomen showed moderate small bowel enteritis with free air in the upper abdomen, suggesting perforated bowel versus post surgical changes. No obs truction. S/p diagnostic laparoscopy, abdominal washout, drain placement and diverting loop ileostomy creation with CHRIS drain 10 Albanian on 07/21 S/P cholecystotomy tube on 08/02 S/P Cholecystogram showed cholecystotomy tube in satisfactory position with multiple large gallstones seen in the gallbladder lumen on 08/09 S/P successful CT guided drainage of left infrasplenic collection on 08/09 Diet is being advanced as tolerated She was noted to have elevated BUN/creatinine We are consulted for renal failure Renal function and electrolytes are stable. Nurse reports patient continues with pain medication around the clock She was seen in the medial floor, in no acute distress No family at the bedside REVIEW OF SYSTEMS: GENERAL: Positive for nausea NEUROLOGIC: Negative for any blurry vision, blind spots, double vision, facial asymmetry, dysphagia, dysarthria, hemiparesis, hemisensory deficits, vertigo, ataxia. HEENT: Negative for any head trauma, neck trauma, neck stiffness, photophobia, phonophobia, sinusitis, rhinitis. CARDIAC: Negative for any chest pain, dyspnea on exertion, paroxysmal nocturnal dyspnea, peripheral edema. PULMONARY: Negative for any shortness of breath, wheezing, COPD, or TB exposure. GASTROINTESTINAL: Negative for any abdominal pain, nausea, vomiting, bright red blood per rectum, melena. GENITOURINARY: Negative for any dysuria, hematuria, incontinence. INTEGUMENTARY: Negative for any rashes, cuts, insect bites. RHEUMATOLOGIC: Negative for any joint pains, photosensitive rashes, history of vasculitis or kidney problems. HEMATOLOGIC: Negative for any abnormal bruising, frequent infections or bleeding. Vital Signs (last 8hr) Date Time Temp Pulse Resp B/P (MAP) Pulse Ox O2 Delivery O2 Flow Rate FiO2 08/13/25 08:00 98.2 85 18 112/67 97 Room Air PHYSICAL EXAM: GENERAL: Alert and oriented x 3. No acute distress. Well-nourished. EYES: EOMI. Anicteric. HENT: Moist mucous membranes. No scleral icterus. No cervical lymphadenopathy. LUNGS: Clear to auscultation bilaterally. No accessory muscle use. CARDIOVASCULAR: Regular rate and rhythm. No murmur. No JVD. ABDOMEN: Soft, non-tender and non-distended. No palpable masses. EXTREMITIES: No edema. Non-tender SKIN: No rashes or lesions. Warm. NEUROLOGIC: No focal neurological deficits. CN II-XII grossly intact, but not individually tested. PSYCHIATRIC: Cooperative. Appropriate mood and affect. Current Medications Medications (Trade) Dose Ordered Sig/Gregory Route Start Time Stop Time Status Last Admin Dose Admin Albumin Human 100 ml @ 0 mls/hr ONCE IV 07/25/25 12:00 07/26/25 11:59 DC 07/25/25 13:43 100 MLS/HR Cyclobenzaprine HCl (Cyclobenzaprine HCl) 5 mg TID PO 07/25/25 14:00 07/26/25 14:00 DC 07/26/25 14:19 5 MG Fluconazole/ Sodium Chloride (DiFLUCan 200 MG/ NS 100 ML) 200 mg Q24H IVPB 07/21/25 21:00 08/20/25 20:59 07/25/25 20:47 200 MG Furosemide (LASix 20MG TAB) 20 mg DAILY PO 07/25/25 11:00 08/24/25 10:59 07/26/25 08:56 20 MG Insulin Human Regular (humuLIN R 100 UNIT/ML 3ML) INSULIN SLIDING SCAL... ACHS SQ 07/21/25 07:30 08/20/25 07:29 07/22/25 20:40 3 UNIT Lactated Ringer's 1,000 ml @ 75 mls/hr [id number] IV 07/21/25 00:00 07/21/25 13:17 DC 07/21/25 02:57 75 MLS/HR Lactated Ringer's 1,000 ml @ 75 mls/hr [id number] IV 07/21/25 13:30 07/24/25 11:09 DC 07/24/25 09:27 75 MLS/HR Lactobacillus Rhamnosus ([facility] BigTip & IDverge) 1 each DAILY20 PO 07/26/25 20:00 08/25/25 19:59 Metronidazole/ Sodium Chloride (flaGYL) 500 mg Q8H IV 07/21/25 14:00 07/21/25 13:40 DC Norepinephrine 250 ml @ 0 mls/hr PROTOCOL IV 07/20/25 23:30 08/19/25 23:29 07/21/25 10:56 18.45 MLS/HR Pantoprazole Sodium (PROTonix 40MG INJ) 40 mg BID IV 07/26/25 21:00 08/20/25 08:59 Pantoprazole Sodium (PROTonix 40MG INJ) 40 mg DAILY IV 07/21/25 09:00 07/26/25 09:31 DC 07/26/25 08:55 40 MG Pharmacy Profile Note (Pharmacy Communication) 1 each ONCE MISC 07/21/25 15:30 07/21/25 15:16 DC Piperacillin Sod/ Tazobactam Sod 50 ml @ 200 mls/hr ONCE STAT IVPB 07/20/25 19:15 07/20/25 19:29 DC 07/20/25 20:32 200 MLS/HR Piperacillin Sod/ Tazobactam Sod (Zosyn 3.375gm+NS 50ml) 3.375 gm Q12H IV 07/21/25 00:00 07/31/25 00:00 07/26/25 12:10 3.375 GM Psyllium Hydrophilic Mucilloid (Metamucil) 1 tbs BID PO 07/26/25 21:00 08/25/25 20:59 Sodium Bicarbonate 150 meq/Sodium Chloride 1,150 ml @ 0 mls/hr Q0M IVP 07/21/25 14:00 07/26/25 09:31 DC Spironolactone (Aldactone 25mg) 25 mg BID PO 07/25/25 21:00 07/26/25 09:01 DC 07/26/25 08:56 25 MG Thiamine HCl (Vitamin B-1) 100 mg DAILY IVP 07/22/25 21:00 08/21/25 20:59 07/26/25 08:55 100 MG Thiamine HCl 100 mg/Sodium Chloride 50 ml @ 100 mls/hr Q24H IM 07/21/25 15:30 07/21/25 16:25 DC Vancomycin HCl (Vancomycin 1g/ 250ml Kit) 1 gm ONCE STAT IV 07/20/25 21:23 07/20/25 21:26 DC 07/20/25 22:06 1 GM Vasopressin 20 units/Sodium Chloride 100 ml @ 0 mls/hr PROTOCOL IV 07/21/25 00:30 08/20/25 00:29 07/21/25 00:10 9 MLS/HR LABORATORY: [ ] Hematology Labs: Test 08/13/25 04:53 Range/Units White Blood Count 3.9 L 4.8-10.8 K/uL Red Blood Count 2.97 L 4.00-5.50 MIL/uL Hemoglobin 8.9 L 12.0-16.0 g/dL Hematocrit 27.6 L 36-48 % Mean Corpuscular Volume 92.9 79-99 fL Mean Corpuscular Hemoglobin 30.0 27.0-33.0 pg Mean Corpuscular Hemoglobin Concent 32.2 32.0-36.0 g/dL Red Cell Distribution Width 17.3 H 11.0-15.5 % Platelet Count 183 130-400 K/uL Mean Platelet Volume 9.4 7.5-10.5 fL Nucleated Red Blood Cells 0.0 0.0-0.19 % Chemistry Labs: Test 08/13/25 11:54 08/13/25 04:53 Range/Units Whole Blood Glucose 136 H 70-110 MG/DL Sodium Level 137 136-145 mmol/L Potassium Level 4.0 3.5-5.1 mmol/L Chloride Level 106 101-111 mmol/L Carbon Dioxide Level 21 21-32 mmol/L Blood Urea Nitrogen 9 7-18 mg/dL Creatinine 0.7 0.5-1.0 mg/dL Glomerular Filtration Rate Calc 101 >90 mL/min Random Glucose 124 H 70-105 mg/dL Total Calcium 8.5 8.5-10.1 mg/dL DIAGNOSTICS / RADIOLOGY: [place] [address] IMAGING REPORT Signed PATIENT: DALLAS BUCHANAN MR#: [id number] : 1970 SEX: F AGE: 55 LOCATION: [facility] ORDER 1 STATUS: ADM IN REPORT#: [id number] SERVICE 0 REASON: picc line placement ORDERING PHYSICIAN: AYAKA BARR MD PROCEDURE: CXR1VW - CHEST 1VW EXAM: CR Chest, single view. CLINICAL HISTORY: PICC line placement. COMPARISON: Prior chest radiograph dated July 22, 2025 FINDINGS: Left-sided PICC line placement with tip in the region of the superior vena cava. Mild cardiomegaly. An ill-defined soft tissue in the superior mediastinum possibility of aortic arch aneurysm, is not excluded. The lungs show no infiltrate or other acute findings. No pleural effusion or pneumothorax. No acute osseous abnormality. IMPRESSION: Left-sided PICC line placement with tip in the region of the superior vena cava. Mild cardiomegaly. An ill-defined soft tissue in the superior mediastinum possibility of aortic arch aneurysm, is not excluded. May consider further evaluation with contrast-enhanced CT thorax. Compared to the prior study, there is no interval resolution of the subsegmental atelectasis in the right lower lobe, interval removal of the nasogastric tube, and interval placement of the left-sided PICC catheter. /[place] DICTATED BY: ELDON MILLER Jr., MD DATE: 08/11/25824 ELECTRONICALLY SIGNED BY: ELDON MILLER Jr., MD DATE: 08/11/25824 PATIENT: DALLAS BUCHANAN MR#: [id number] : 1970 SEX: F AGE: 55 LOCATION: [facility] ORDER 1544 STATUS: ADM IN REPORT#: [id number] SERVICE 0800 REASON: Aspiration of perisplenic fluid noted on CT ORDERING PHYSICIAN: BENEDICTO OBRIEN Jr. PROCEDURE: GUID NDL - CT GUIDE NDL PLCMT IR CT GUIDE NDL PLCMT IR HISTORY: Aspiration of perisplenic fluid noted on CT infrasplenic fluid collection drainage . TECHNIQUE: Images from prior studies reviewed. Informed consent was obtained after explaining the procedure and potential complications to the patient. Time out performed. The patient was placed prone on the CT couch and images of the abdomen obtained. The left flank draped in sterile fashion. Local anesthesia was applied and under CT-fluoroscopy guidance, a 19-gauge needle introducer was advanced through the abdominal wall and into a left infrasplenic fluid collection in the left hemiabdomen. Then, over a wire the tract was dilated to accommodate a 8 Albanian APDL catheter, which was left coiled within the collection. Completion images reveal no hemorrhage. Patient tolerated the procedure well and was discharged from the department in good condition. Approximately 10 cc of fluid mL of fluid sent for cultures. Conscious sedation provided by a registered nurse who monitored the patient's vital signs throughout and after the procedure. MEDICATIONS: Fentanyl 100 mcg IV and Versed 2 mg IV IMPRESSION: Successful CT guided drainage of left infrasplenic collection. DICTATED BY: GREER FIORE MD DATE: 08/10/25927 ELECTRONICALLY SIGNED BY: GREER FIORE MD DATE: 08/10/25937 PATIENT: DALLAS BUCHANAN MR#: [id number] : 1970 SEX: F AGE: 55 LOCATION: [facility] ORDER 36 STATUS: ADM IN REPORT#: [id number] SERVICE 35 REASON: epigastric pain. not tolerating meals. ORDERING PHYSICIAN: SUSAN JHAVERI MD PROCEDURE: ABD PEL W - CT ABDOMEN/PELVIS W/CONTRAST EXAM: CT Abdomen and Pelvis with IV contrast CLINICAL HISTORY: epigastric pain. not tolerating meals. TECHNIQUE: Axial computed tomography images of the abdomen and pelvis with intravenous contrast. CONTRAST: with intravenous contrast. COMPARISON: Compared with the previous CT dated 07/20 and USG dated 07/29 FINDINGS: LUNG BASES: Grossly stable atelectasis and scarring at the lung bases. LIVER: Unremarkable. GALLBLADDER AND BILE DUCTS: The gallbladder is decompressed with a cholecystostomy tube in situ. PANCREAS: Unremarkable. SPLEEN: The spleen is enlarged in size, measuring 15.2 cm. ADRENAL GLANDS: Unremarkable. KIDNEYS, URETERS, AND BLADDER: No hydronephrosis or nephrolithiasis. No ureteral calculi. The urinary bladder is unremarkable. STOMACH AND BOWEL: The ileostomy site appears unremarkable. Interval resolution of previously seen moderate small bowel enteritis. No obstruction. APPENDIX: No CT evidence for appendicitis. PERITONEUM: Near complete interval resolution of previously seen moderate ascites in the abdomen and pelvis. Collection in the perisplenic and infra-splenic region measuring 6.0 x 6.1 x 8.9 cm. Interval resolution of previously seen pneumoperitoneum. Diffuse mesenteric fat stranding, likely postoperative changes. LYMPH NODES: No lymphadenopathy. REPRODUCTIVE: Unremarkable as visualized. VASCULATURE: No aortic aneurysm. ABDOMINAL WALL AND SOFT TISSUES: Interval resolution of previously seen subcutaneous emphysema in the anterior abdominal wall and left lateral chest wall. Abdominal drain in situ with tip in the pelvis. BONES: No fracture or suspicious osseous abnormality. IMPRESSION: 1. Perisplenic and infrasplenic fluid collection measuring 6.0 x 6.1 x 8.9 cm. 2. Splenomegaly, with spleen measuring 15.2 cm. 3. Cholecystostomy tube in situ with decompressed gallbladder. 4. Abdominal drain in situ with tip in the pelvis. 5. No acute findings in the remainder of the abdomen and pelvis. /[place] DICTATED BY: ELDON MILLER Jr., MD DATE: 08/04/251636 ELECTRONICALLY SIGNED BY: ELDON MILLER Jr., MD DATE: 08/04/251636 PATIENT: DALLAS BUCHANAN MR#: [id number] : 1970 SEX: F AGE: 55 LOCATION: [facility] ORDER 1524 STATUS: ADM IN REPORT#: [id number] SERVICE 1523 REASON: cholecystitis ORDERING PHYSICIAN: BENEDICTO OBRIEN Jr. PROCEDURE: HIDA PHARM - NM HIDA/HEPATOBILI W/ PHARMACO EXAM: HIDA scan. INDICATION: Severe RUQ Pain to rule out cholecystitis. REFERENCE EXAMINATION: USG July 29, 2025. TECHNIQUE: Sequential images of the abdomen were obtained in the anterior projection after IV administration of 6.0 mCi of Tc99m Mebrofenin. FINDINGS: Tracer activity throughout the liver is homogeneous without focal defects. There is prompt excretion of the pharmaceutical into the bile ducts and into the small bowel, without evidence of obstruction. There is no visualization of the gallbladder at the conclusion of the examination. IMPRESSION: Scintigraphic findings are compatible with acute cholecystitis. /[place] DICTATED BY: ELDON MILLER Jr., MD DATE: 08/01/25 101 ELECTRONICALLY SIGNED BY: ELDON MILLER Jr., MD DATE: 08/01/25 1011 PATIENT: DALLAS BUCHANAN MR#: [id number] : 1970 SEX: F AGE: 55 LOCATION: [facility] ORDER 10 STATUS: ADM IN REPORT#: [id number] SERVICE 09 REASON: ABD PAIN ORDERING PHYSICIAN: NIKKI MUNOZ NP PROCEDURE: ABD 1VW - ABD 1VW EXAM: CR Abdomen, 1 view. CLINICAL HISTORY: Pain. COMPARISON: None provided. FINDINGS: Dilated small bowel loops are seen in mid abdomen. There is a density in the pelvis which may represent a send drainage catheter. No free air is evident. No abnormal calcification. No aggressive appearing osseous lesion. IMPRESSION: Dilated small bowel loops are seen in mid abdomen. Density in the pelvis which may represent a send drainage catheter. /[place] DICTATED BY: TOBI LEAHY MD DATE: 07/29/25 1033 ELECTRONICALLY SIGNED BY: TOBI LEAHY MD DATE: 07/29/25 103 PATIENT: DALLAS BUCHANAN MR#: [id number] : 1970 SEX: F AGE: 55 LOCATION: [facility] ORDER 18 STATUS: ADM IN REPORT#: [id number] SERVICE 15 REASON: Liver cirrhosis ORDERING PHYSICIAN: LISET DOUGLAS MD PROCEDURE: ABDOMEN - US ABDOMINAL COMPLETE EXAM: US Abdomen complete CLINICAL HISTORY: Liver cirrhosis TECHNIQUE: Real-time ultrasound of the abdomen (complete) with image documentation. COMPARISON: None provided. FINDINGS: LIVER: Liver measures 12.3 cm with a heterogeneous coarse echotexture. GALLBLADDER: Gallbladder contains stones and sludge. Gallbladder is distended. COMMON BILE DUCT: No dilation. PANCREAS: Pancreas not well-visualized due to overlying bowel gas KIDNEYS: Normal renal contours. No renal mass or calculus. No hydronephrosis. SPLEEN: Normal in size and echogenicity. No mass identified. AORTA: No aneurysm. IVC: Unremarkable as visualized. MISCELLANEOUS: Small amount of abdominal ascites. IMPRESSION: 1. Cirrhotic-appearing liver. 2. Cholelithiasis and biliary sludge with gallbladder distension. 3. Small volume ascites. /[place] DICTATED BY: CYNTHIA JULIAN MD DATE: 07/29/251055 ELECTRONICALLY SIGNED BY: CYNTHIA JULIAN MD DATE: 07/29/251055 PATIENT: DALLAS BUCHANAN MR#: [id number] : 1970 SEX: F AGE: 55 LOCATION: [facility] ORDER 1108 STATUS: ADM IN REPORT#: [id number] SERVICE 110 REASON: sob ORDERING PHYSICIAN: PREET BOSTON MD PROCEDURE: CXR1VW - CHEST 1VW CHEST 1VW REASON: sob COMPARISON: Study from 07/21/2025 is available. FINDINGS: Single view of the chest was obtained. Lungs are clear. Heart size is normal. There is no pulmonary vascular congestion. There is a right-sided PIC catheter with tip in superior vena cava. There is a nasogastric tube with the tip in the fundus of the stomach. Mediastinum and bony thorax appear unremarkable. IMPRESSION: 1. No acute cardiopulmonary process 2. The support lines are in satisfactory position.. DICTATED BY: GREER FIORE MD DATE: 07/22/25 135 ELECTRONICALLY SIGNED BY: GREER FIORE MD DATE: 07/22/25 135 PATIENT: DALLAS BUCHANAN MR#: [id number] : 1970 SEX: F AGE: 55 LOCATION: [facility] ORDER 0100 STATUS: ADM IN REPORT#: [id number] SERVICE 0100 REASON: PICC LINE ORDERING PHYSICIAN: HEATHER LEACH APRN PROCEDURE: CXR1VW - CHEST 1VW EXAM: CR Chest, single view. CLINICAL HISTORY: PICC line COMPARISON: Prior same day chest radiograph. FINDINGS: Right-sided PICC catheter with tip in the cavoatrial junction. Subsegmental atelectasis in the right lower lobe. No evidence of pleural effusion or pneumothorax. The cardiomediastinal silhouette is within normal limits. No acute osseous abnormality. IMPRESSION: Right-sided PICC catheter with tip in the cavoatrial junction. Subsegmental atelectasis in the right lower lobe. No evidence of pleural effusion or pneumothorax. Compared to the prior study, there is interval placement of the right-sided PICC line and interval resolution of the subsegmental atelectasis in the left lower lobe. /[place] DICTATED BY: ELDON MILLER Jr., MD DATE: 07/21/25816 ELECTRONICALLY SIGNED BY: ELDON MILLER Jr., MD DATE: 07/21/25816 PATIENT: DALLAS BUCHANAN MR#: [id number] : 1970 SEX: F AGE: 55 LOCATION: [facility] ORDER 14 STATUS: [facility] REPORT#: [id number] SERVICE 12 REASON: CHEST PAIN/COUGH ORDERING PHYSICIAN: ALHAJI SHINE NP PROCEDURE: CXR1VW - CHEST 1VW EXAM: XR Chest, 1 View. CLINICAL HISTORY: 55 year old female with chest pain and cough. COMPARISON: None provided. FINDINGS: LUNGS: The lungs demonstrate evidence of atelectasis. PLEURAL SPACES: A small right pleural effusion is present. HEART: The heart size is normal. BONES: No acute osseous abnormality. IMPRESSION: 1. Small right pleural effusion and right lung base atelectasis. /[place] DICTATED BY: EDWIGE LEDESMA MD DATE: 07/20/252046 ELECTRONICALLY SIGNED BY: EDWIGE LEDESMA MD DATE: 07/20/252046 PATIENT: DALLAS BUCHANAN MR#: [id number] : 1970 SEX: F AGE: 55 LOCATION: [facility] ORDER 14 STATUS: REG REPORT#: [id number] SERVICE 12 REASON: Abdominal Pain ORDERING PHYSICIAN: ALHAJI SHINE NP PROCEDURE: ABD PEL W - CT ABDOMEN/PELVIS W/CONTRAST ADDENDUM REPORT ADDENDUM: Results were shared by telephone at 23:23 pm on 07-20-2025 and acknowledged by Pt nurse Ms. SHIN BOYKIN. /[place] EXAM: CT Abdomen and Pelvis with Intravenous Contrast CLINICAL HISTORY: 55-year-old female with abdominal pain. TECHNIQUE: Axial computed tomography images of the abdomen and pelvis with intravenous contrast. Dose reduction technique was used including one or more of the following: automated exposure control, adjustment of mA and kV according to patient size, and/or iterative reconstruction. CONTRAST: Omnipaque 350, 75 mL COMPARISON: None provided. FINDINGS: LUNG BASES: Atelectasis and scarring at the lung bases. LIVER: Unremarkable. GALLBLADDER AND BILE DUCTS: Tiny gallstone seen. PANCREAS: Unremarkable. SPLEEN: Unremarkable. ADRENAL GLANDS: Unremarkable. KIDNEYS, URETERS, AND BLADDER: Dueñas catheter seen in the bladder lumen. No hydronephrosis or nephrolithiasis. No ureteral calculi. STOMACH AND BOWEL: Edema or loops of small bowel suggesting moderate small bowel enteritis. Free air in the upper abdomen is seen, suggesting perforated bowel. No obstruction. APPENDIX: No CT evidence for appendicitis. PERITONEUM: Moderate ascites in the abdomen and pelvis. No free air under the diaphragm. LYMPH NODES: No lymphadenopathy. REPRODUCTIVE: Unremarkable as visualized. VASCULATURE: No aortic aneurysm. ABDOMINAL WALL AND SOFT TISSUES: There is air in the subcutaneous soft tissue seen anteriorly, suggesting recent postsurgical changes; please correlate with surgical history. BONES: No fracture or suspicious osseous abnormality. IMPRESSION: 1. Moderate small bowel enteritis with free air in the upper abdomen, suggesting perforated bowel versus post surgical changes. No obstruction. 2. Moderate ascites in the abdomen and pelvis. 3. Air in the subcutaneous soft tissue anteriorly, suggesting recent postsurgical changes; please correlate with surgical history. /[place] DICTATED BY: EDWIGE LEDESMA MD DATE: 07/20/257 ELECTRONICALLY SIGNED BY: DATE: EXAM: CT Abdomen and Pelvis with Intravenous Contrast CLINICAL HISTORY: 55-year-old female with abdominal pain. TECHNIQUE: Axial computed tomography images of the abdomen and pelvis with intravenous contrast. Dose reduction technique was used including one or more of the following: automated exposure control, adjustment of mA and kV according to patient size, and/or iterative reconstruction. CONTRAST: Omnipaque 350, 75 mL COMPARISON: None provided. FINDINGS: LUNG BASES: Atelectasis and scarring at the lung bases. LIVER: Unremarkable. GALLBLADDER AND BILE DUCTS: Tiny gallstone seen. PANCREAS: Unremarkable. SPLEEN: Unremarkable. ADRENAL GLANDS: Unremarkable. KIDNEYS, URETERS, AND BLADDER: Dueñas catheter seen in the bladder lumen. No hydronephrosis or nephrolithiasis. No ureteral calculi. STOMACH AND BOWEL: Edema or loops of small bowel suggesting moderate small bowel enteritis. Free air in the upper abdomen is seen, suggesting perforated bowel. No obstruction. APPENDIX: No CT evidence for appendicitis. PERITONEUM: Moderate ascites in the abdomen and pelvis. No free air under the diaphragm. LYMPH NODES: No lymphadenopathy. REPRODUCTIVE: Unremarkable as visualized. VASCULATURE: No aortic aneurysm. ABDOMINAL WALL AND SOFT TISSUES: There is air in the subcutaneous soft tissue seen anteriorly, suggesting recent postsurgical changes; please correlate with surgical history. BONES: No fracture or suspicious osseous abnormality. IMPRESSION: 1. Moderate small bowel enteritis with free air in the upper abdomen, suggesting perforated bowel versus post surgical changes. No obstruction. 2. Moderate ascites in the abdomen and pelvis. 3. Air in the subcutaneous soft tissue anteriorly, suggesting recent postsurgical changes; please correlate with surgical history. /[place] DICTATED BY: EDWIGE LEDESMA MD DATE: 07/20/252317 ELECTRONICALLY SIGNED BY: EDWIGE LEDESMA MD DATE: 07/20/252317 ASSESSMENT: Acute kidney injury Hyponatremia Bacterial peritonitis Perisplenic and infrasplenic fluid collection with splenomegaly Cholelithiasis 2 mm perforation of the colonic anastomosis Anastomosis leak Bilious peritonitis S/p Diagnostic laparoscopy, abdominal washout, drain placement and diverting loop ileostomy creation Atrophic vaginitis Anemia Diabetes Mellitus Type 2 Septic Shock Cirrhosis of liver Oesophageal Varices PLAN: Labs, diagnostic, radiologic exams reviewed and interpreted by myself and supervising physician. We have reviewed external records in detail Advance diet as per primary team Pain management as per Primary team/surgery Require close monitoring of renal function and electrolytes Order CBC, CMP, and electrolytes in am Continue with antibiotics as per ID BiPAP as necessary, for respiratory distress Monitor blood pressure adjust medication doses as needed Avoid hypotensive episodes May use Dilaudid 0.5 mg IV every 6 hours as needed for severe pain Monitor blood sugars Strict intake, output, and daily weight should be monitored Please renally adjust medications Avoid nephrotoxic and nonsteroidal drugs Avoid contrast if possible Will continue to monitor renal function, anemia, electrolytes Treatment plan discussed with patient Questions were answered We have discussed with the other team physicians in detail about the care plan We will continue to monitor the patient closely ATTESTATION BY PHYSICIAN I have seen and examined the patient. I reviewed the documentation, medical decision making, and treatment plan as noted by the mid-level provider above. I agree with the findings and plan of care. CIELO PORTILLO MD, [facility] Aug 13, 2025 12:55
--- NOTE | 2025-08-13 16:17 | PN ---
[facility] PROGRESS NOTE Date of Service: Aug 13, 2025 Time of Service: 8:40 SUBJECTIVE: Ms. Gray is a 55-year-old female that was seen and examined today on 07/20/2025. Patient reports that she came to the emergency department with a chief complaint of abdominal pain. Onset was 07/09/2025. Location is all four quadrants. Duration is constant. Character is described as pressure and " like I have a lot of gas trapped. " there was no alleviating factors. There was no aggravating factors. Patient reports associated abdominal swelling. 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 After the discharge she was taking pain medications and her condition started worsening after few days. She is in constant follow up with Dr Gann. Today in the emergency department WBCs 21.2, left shift neutrophils 85.5%, BUN 26, creatinine 3.1, GFR 17, lactic acid 8.0, no urinalysis has been collected or sent to lab, CT of abdomen and pelvis showed of free air in the abdomen which could be a suspected bowel perforation versus postsurgical changes, moderate ascites, fissure post surgical changes. Chest x-ray shows right pleural effusion. Additionally patient had a heart rate of 125, respirations 26, together with leukocytosis and lactic acidosis patient met clinical sepsis criteria additionally patient's blood pressure dropped to 85/50 mmHg requiring vasopressor support therefore meeting criteria for septic shock. Patient will be admitted to the intensive care unit. Emergency room physician spoke with patient's surgeon, Dr. Gann who requested patient be admitted under hospitalist service and she will follow this case along. 07/21/25 Patient was evaluated at the bedside. She was accompanied by her daughter. She is oriented to the time, place and person. She complained of abdominal pain in all the quadrants. She hasn't had bowel movement since Saturday and also is unable to pass flatus at this time. She has guarding, rigidity and tenderness all over the abdomen, showing the signs of peritonitis. She was seen by Dr Gann this mo rning and is planned to be taken to OR this afternoon. Dueñas catheter is in place, as she wasn't able to pass the urine. There is no fever, chills and any other signs of infection. 07/22/25 Patient was evaluated at the bedside. She was accompanied by her daughter. She is oriented to the time, place and person. She underwent Diagnostic laparoscopy, abdominal washout, drain placement and diverting loop ileostomy creation, The procedure revealed Bilious peritonitis, 2 mm perforation of the colonic anastomosis. She is hemodynamically stable with Blood pressure of 110/73 and HR of 83. Currently she complains of abdominal pain which is getting better than yesterday, its 3-4/10 intensity. There is no rigidity. She is anxious about the outcomes and had discussion regarding her current clinical status and lab parameters. There is no fever, chills and any other signs of infection. 07/23/25 Patient was evaluated at the bedside. She was accompanied by her daughter. She is oriented to the time, place and person. She status post diagnostic laparoscopy, abdominal washout, drain placement and diverting loop ileostomy creation. Currently she complains of abdominal pain which is 5/10 intensity. She also complaints of mild lower back pain There is no fever, chills and any other signs of infection. She has CHRIS drain in-situ with clear fluid along with colostomy bag. She is currently tolerating clear liquid diet. 07/24/2025 Patient is seen and examined at the bedside. Vitals blood pressure ranging in 100s/50s, pulse rate 50s, SpO2 greater than 95% on room air. She mentions about experiencing pressure-like discomfort on the right side of the abdomen and pain when she tries to eat. No acute events last night. She denies fever, chills, nausea, vomiting, chest pain. CHRIS output approximately 100cc/hr, serosanguineous fluid. Ileostomy bag in place. She is tolerating clear liquid diet without any nausea/vomiting. Labs hemoglobin 9.8, BUN 38, creatinine improved from 1.6-1.1. 07/25/2025 Patient is seen and examined at the bedside. She complains of abdominal pain which is 7/10 in intensity. No acute events last night. She denies fever, chills, nausea, vomiting, chest pain. CHRIS output approximately 100cc/hr, serosanguineous fluid. Ileostomy bag in place. The patient has been started on spironolactone 25mg BID and Lasix 20 mg once daily. There is high output from CHRIS but it is clear serous, most likely related to her ascites from her history of liver cirrhosis. She is tolerating clear liquid diet without any nausea/vomiting. 07/26/2025 Patient is seen and examined at the bedside. She complains of abdominal pain which remains constant. No acute events last night. She denies fever, chills, nausea, vomiting, chest pain. Patient is status post with a CHRIS drain. The drain has been collecting the serosanguineous fluid secondary to ascites. She has been tolerating liquid diet and her diet has been advanced to soft diet. She still nielsen s bloating for which probiotics and fibers has been recommended. Hemoglobin has gradually trended down to 9.2 and was given IV Venofer. Patient to get up and ambulate and work with physical therapy. 07/27/2025 Patient is seen and examined at the bedside. She complains of abdominal pain which is 6/10 in intensity. No acute events last night. She denies fever, chills, nausea, vomiting, chest pain. Patient is unable to tolerate the soft diet, hence she is currently receiving the liquid diets. The CHRIS drain output is still high and there was small amount of drainage observed in the right ileostomy. 07/28/2025 Patient is seen and examined at the bedside. She complains of abdominal pain which is 9/10 in intensity. No acute events last night. She denies fever, chills, nausea, vomiting, chest pain. Patient reported pain after eating but no nausea or vomiting. WBC is gradually trending up from 8.3-7.3-11.1-11.8. She had lidocaine patch placed this morning. She was started on simethicone 80 mg yesterday. Pertinent she is currently receiving Dilaudid 0.5 mg. Abdominal ultrasound has been ordered for further assessment. 07/29/2025 Patient is seen and examined at the bedside. She continues to complain of severe abdominal pain, rated 9/10 in intensity, unchanged from prior. She is currently receiving Dilaudid 0.5 mg for pain. She reports discomfort related to Dueñas catheterization. She denies fever, chest pain, nausea or vomiting at this time. No acute events were reported overnight. Blood pressure noted today is noted to be 98/54 mm Hg which is slightly low. Per surgery team, stoma is likely to be removed today. Hemoglobin has trended down from 9.7 g/dl to 9.0 g/dl. 07/30/2025 Patient is seen and examined at the bedside. She continues to complain of severe abdominal pain. Her abdominal distention has slightly improved. Dueñas's catheter was removed due to persistent discomfort. We will continue with scheduled removal of the ascites fluid and from CHRIS bulb. Ultrasound of abdomen was concerning for cholelithiasis with biliary sludge and gallbladder distention. HIDA scan was performed today. If consistent with cholecystitis patient will need cholecystostomy tube placement. 07/31/2025 Patient is seen and examined at the bedside. She was accompanied by her daughter. She continues to complain of severe abdominal pain. She is currently on Dilaudid 0.5mg Q4H PRN, which relieves the symptoms for 2-3 hours, after that she develops same level of pain and discomfort again. Currently awaiting the HIDA scan results. Her sodium level is 133 and albumin level is trending downwards from 2.3 to 2.1. Her Iron panel results showed: Iron 20L, TIBC 147L and %sat 16.3L. For her continuos pain she is started on Fentanyl 25mcg. CHRIS drain culture has beens sent. Based on the results of HIDA scan, CT chest will be planned. 08/01/2025: Patient is seen and examined this morning at bedside. She was accompanied by her daughter. The patient complains of severe abdominal pain. She is currently being managed with [place], and Dilaudid for breakthrough pain. HIDA scan results are back, and show acute cholecystitis. Surgery has been made aware of the results. IR has been consulted for cholecystostomy tube placement. The patient will be started on PPN, as recommended by general surgery. The patient follows with Dr. Sol outpatient for her liver cirrhosis. The patients daughter would like her vice chair Dr. Sol to be involved in the patients care, and be updated with her status. 08/02/2025: Patient is seen and evaluated in the room 432. She was accompanied by her daughter. She complains of severe abdominal pain. She also complained of bleeding through her vagina, pink tinged urine. Her vitals are in the normal range. Her labs are in the normal range except for Hb is 8.6, Na is 135, K is 5.2, BUN is 4, Glucose is 150, CRP is 103.90. She went for placement of cholecystectomy tube by IR. We did a pelvic exam and ordered a vaginal estrogen cream and urinalysis. Also for her hyperkalemia we checked the potassium again and its 4.1. So we will repeat the labs tomorrow. We ordered a dose of albumin for her. 08/03/2025: Patient is seen and evaluated in the room 432. She has mild abdominal pain today. Her pain improved after the placement for cholecystotomy tube. Her vitals are in the normal range. Her labs are normal except for hemoglobin 8.2, glucose 156, CRP 89.8. Her aerobic and anaerobic culture of drain showed no growth. Gastroenterology saw the patient and they recommended 25 grams of 25% IV albumin q12H for 3 days. Her bleeding through the vagina decreased. The drainage through the left abdomen is 100ml, right abdomen is 20ml, left anterior abdomen 5ml. 08/04/2025: Patient is seen and evaluated in the room 432. She has abdominal pain today. Her vitals are in the normal range. Her labs are normal except for Hb is 8, CRP is 72.10, glucose is 130. Aerobic and anaerobic drain culture showed no growth. She is not able to tolerate her food. The drainage through the left abdomen is 100ml, right abdomen is 20ml, left anterior abdomen 5ml. Gastroenterology is planning to do EGD tomorrow. Surgery wanted to do a CT abdomen and pelvis with IV contrast. CT scan showed perisplenic and infrasplenic fluid collection measuring 6.0 x 6.1 x 8.9 cm, splenomegaly, with spleen measuring 15.2 cm, cholecystostomy tube in situ with decompressed gallbladder, abdominal drain in situ with tip in the pelvis. We ordered T.bilirubin and we will monitor the output from colostomy tube. We are also planning to add metoclopramide. 08/05/2025: Patient is seen and evaluated in the room 432. She has abdominal pain today. Her abdomen is tender to touch and warm. Her vital signs are in the normal range except for BP is 117/45. Her labs are normal except for Hb is 8.2, sodium is 135, creatinine is 0.3, CRP is 60.9 The drain output from left abdomen is 40ml, left anterior abdomen 0ml, right abdomen 0ml. Her saturation is 100% on 10L of O2. Her labs are in the normal range except for Hb is 8.2, HCT is 25.9, sodium is 135, glucose is 107, CRP is 60.90. She underwent endoscopy today and they did biopsy from 3 sites. GI said that they will consult radiology to check whether CHRIS drain and cholecystostomy tube are in place. General surgery will consult IR to evaluate perisplenic fluid collection for potential aspiration. 08/06/2025: Patient is seen and evaluated in the room 432. She has abdominal pain today. Her abdomen is tender to touch and warm. Her vital signs are in the normal range except for 97/63. Her labs are in the normal range except for Hb is 8.1, sodium is 135, blood glucose is 151, CRP 53.60. We are waiting for IR consult for evaluation and for potential aspiration of perisplenic fluid. The drain output from right abdomen is 20ml. 08/07/2025: Patient is seen and evaluated in the room 432. She has abdominal pain today. Her abdomen is tender to touch and warm. Her vital signs are in the normal range except for blood pressure which is 102/60. Her labs are in the normal range except for Hb is 8.5, WBC is 4.4, RDW is 17.3, sodium is 134, glucose is 147. We are waiting for IR consult for evaluation and for potential aspiration of perisplenic fluid. The drain output from right abdomen is 20ml. The PRINCIPAL STRATEGIST told me that she eats her food after taking her pain medications. Nurse is planning to start full liquid diet for lunch. 08/08/2025: She was evaluated at the bedside this morning. She is AAO x3. she complained of epigastric pain which gets worse with food . Moderate tenderness was appreciated on the epigastric region. Her blood pressure is 99/46, pulse 80. Remarkable lab is for WBC of 4.8, hemoglobin 9, CRP 43.90. She is scheduled with IR for perisplenic fluid aspiration and checking the position of cholecystostomy tube. She is on full liquid diet. She is on Zosyn, fluconazole. Surgery, GI, ID on the board. Rest of the plan as discussed below. 08/09/2025: Patient went to labour market economist for PROCEDURE. As per nurse, her cholecystostomy tube was already correctly positioned but had some stones so tube was flushed. She complained of epigastric and pelvic pain. For pain control, fentanyl patch has been ordered. She is pending perisplenic fluid aspiration by IR. Her blood pressure is 98/58, pulse 90. She is currently NPO. She is on Zosyn, fluconazole. Surgery, GI, ID on the board. Rest of the plan as discussed below. 08/10/2025: Patient was seen and examined at bedside. She underwent CT GUIDED PERISPLENIC PIGTAIL DRAINAGE CATHETER PLACEMENT with Aspiration of perisplenic fluid. There has been 25 ml sanguinous drainage so far in the catheter. Her cholecystostomy tube has had 30 mL drainage in the past 24 hours. She is currently on clear liquid diet tolerating it well. She continues to complain pain in her abdomen without any peritoneal signs. She was started on fentanyl patch yesterday. Gram stain and body fluid culture were sent after drainage of perisplenic abscess which showed RARE GRAM POSITIVE COCCI after 1 day. Patient is currently on Zosyn. 08/11/2025: Patient was seen and examined. She continues to complain of abdominal pain. Her multimodal pain medications were adjusted with fentanyl increased to 25mcg and Dilaudid frequency changed from q.4h to q.6h. She is currently on clear liquid diet and complains of pain while eating. She continues on Zosyn and fluconazole. We are waiting for culture results after drainage of perisplenic abscess. Incision site is clean, dry and intact. Will continue to follow recommendations from ID, General surgery and Nephrology. 08/12/2025: Patient was seen and examined at bedside. She complained of pain in right upper abdomen as well as left lower quadrant, along the drainage catheter insertion. No peritoneal signs present. She is currently on multimodal pain management. Today, we are advancing her to full liquid diet. Culture results have been negative so far. Incision site is clean, dry and intact. Will continue to follow recommendations from ID, General surgery and Nephrology. 08/13/2025: Patient was seen and examined at bedside. She complained of pain in right upper quadrant and left quadrant of abdomen along the line of drainage catheter placement. Comparatively, her pain is better than yesterday and patient states that she feels pain in between pain medication. No peritoneal signs are present. We will follow up with General surgery for CHRIS drain removal as there has been 0 to minimal drainage in the past few days. Patient is currently on full liquid diet. REVIEW OF SYSTEMS CONSTITUTIONAL: No fever, chills, or night sweats. NEUROLOGICAL: Denies headache, sensory and motor deficit. CARDIOVASCULAR: Denies any exertional angina, dyspnea on exertion, palpitations. PULMONARY: Denies any shortness of breath, cough, phlegm/sputum, hemoptysis, pleuritic chest pain. GASTROINTESTINAL: Patient complains of diffuse abdominal pain. She also has bloating. Denies nausea, vomiting. No peritoneal signs observed. GENITOURINARY: Denies frequency, urgency, nocturia, hematuria or incontinence. PHYSICAL EXAM GENERAL APPEARANCE: The patient is alert, awake and oriented and bedbound. NEUROLOGICAL: No sensory and motor deficits. CHEST: Normal chest expansion. LUNGS: Normal Vesicular breath sound. Absence of any rales, rhonchi or any wheezing. CARDIOVASCULAR: Regular. S1 and S2 normal. No appreciable rubs, murmurs or gallops. ABDOMEN: Abdomen is soft and slightly tender. CHRIS drain is placed. Ileostomy creation. Cholecystostomy tube is placed. Drainage catheter in left upper abdominal quadrant as well. Absence of guarding, rigidity and rebound tenderness. GENITOURINARY: No suprapubic tenderness. No costovertebral angle tenderness. Vital Signs (last 8hr) Date Time Temp Pulse Resp B/P (MAP) Pulse Ox O2 Delivery O2 Flow Rate FiO2 08/13/25 12:00 97.9 74 18 112/74 94 Room Air LABS: Laboratory: Test 08/13/25 11:54 08/13/25 04:53 Range/Units Whole Blood Glucose 136 H 70-110 MG/DL White Blood Count 3.9 L 4.8-10.8 K/uL Red Blood Count 2.97 L 4.00-5.50 MIL/uL Hemoglobin 8.9 L 12.0-16.0 g/dL Hematocrit 27.6 L 36-48 % Mean Corpuscular Volume 92.9 79-99 fL Mean Corpuscular Hemoglobin 30.0 27.0-33.0 pg Mean Corpuscular Hemoglobin Concent 32.2 32.0-36.0 g/dL Red Cell Distribution Width 17.3 H 11.0-15.5 % Platelet Count 183 130-400 K/uL Mean Platelet Volume 9.4 7.5-10.5 fL Nucleated Red Blood Cells 0.0 0.0-0.19 % Sodium Level 137 136-145 mmol/L Potassium Level 4.0 3.5-5.1 mmol/L Chloride Level 106 101-111 mmol/L Carbon Dioxide Level 21 21-32 mmol/L Blood Urea Nitrogen 9 7-18 mg/dL Creatinine 0.7 0.5-1.0 mg/dL Glomerular Filtration Rate Calc 101 >90 mL/min Random Glucose 124 H 70-105 mg/dL Total Calcium 8.5 8.5-10.1 mg/dL Current Medications Medications (Trade) Dose Ordered Sig/Gregory Route PRN Reason Start Time Stop Time Status Last Admin Dose Admin Acetaminophen (TYLenol 500MG TAB) 500 mg Q6H6 PRN PO MILD PAIN (1-3) 07/27/25 16:30 08/07/25 12:15 DC Acetaminophen (TYLenol 500MG TAB) 500 mg Q6H6 PRN PO MILD PAIN (1-3) 08/07/25 10:00 08/07/25 10:03 DC Acetaminophen (TYLenol 650MG SUPPOSITORY) 650 mg Q6H PRN RC MILD PAIN (1-3) 07/21/25 00:00 07/27/25 16:22 DC Acetaminophen/ Hydrocodone Bitart (NORco 5/325MG) 1 tab Q4H PRN PO MODERATE PAIN (4-6) 07/31/25 16:30 08/05/25 16:29 DC 08/05/25 14:57 1 TAB Acetaminophen/ Hydrocodone Bitart (NORco 5/325MG) 1 tab Q4H PRN PO MODERATE PAIN (4-6) 08/07/25 12:30 08/12/25 12:29 DC 08/12/25 00:46 1 TAB Acetaminophen/ Hydrocodone Bitart (NORco 5/325MG) 1 tab Q4H PRN PO MODERATE PAIN (4-6) 08/12/25 16:30 08/17/25 16:29 08/13/25 01:13 1 TAB Albumin Human 50 ml @ 100 mls/hr Q12H IV 08/02/25 21:30 08/05/25 09:59 DC 08/05/25 10:12 100 MLS/HR Albumin Human 50 ml @ 0 mls/hr Q12H IV 08/02/25 18:30 08/02/25 20:04 DC Albumin Human 100 ml @ 0 mls/hr ONCE IV 07/25/25 12:00 07/26/25 11:59 DC 07/25/25 13:43 100 MLS/HR Clotrimazole (Lotrimin) 1 GM BID TP 07/29/25 21:00 08/28/25 20:59 08/13/25 10:28 1 GM Cyclobenzaprine HCl (Cyclobenzaprine HCl) 5 mg TID PO 07/25/25 14:00 07/26/25 14:00 DC 07/26/25 14:19 5 MG Fat Emulsion Intravenous 250 ml @ 42 mls/hr DAILY10 IV 08/13/25 10:00 09/12/25 09:59 08/13/25 10:28 42 MLS/HR Fentanyl (DURAgesic 12 MCG/HR PATCH) 12 mcg Q72H TD 08/09/25 13:00 08/09/25 15:19 DC Fentanyl (DURAgesic 12 MCG/HR PATCH) 12 mcg Q72H TD 08/09/25 15:30 08/11/25 10:32 DC 08/09/25 15:38 12 MCG Fentanyl (DURAgesic 25 MCG/HR PATCH) 25 mcg Q72H TD 07/31/25 14:30 07/31/25 14:44 DC Fentanyl (DURAgesic 25 MCG/HR PATCH) 25 mcg Q72H TD 08/12/25 15:30 08/12/25 16:00 DC Fentanyl (DURAgesic 25 MCG/HR PATCH) 25 mcg Q72H TD 08/12/25 21:00 08/17/25 20:59 08/12/25 22:03 25 MCG Fluconazole/ Sodium Chloride (DiFLUCan 200 MG/ NS 100 ML) 200 mg Q24H IVPB 07/21/25 21:00 08/20/25 20:59 08/12/25 22:04 200 MG Furosemide (LASix 20MG TAB) 20 mg DAILY PO 07/25/25 11:00 08/02/25 11:53 DC 08/02/25 09:42 20 MG Gabapentin (NEURontin 100 mg CAP) 100 mg TID PO 07/29/25 14:00 08/02/25 09:21 DC 08/01/25 20:14 100 MG Gabapentin (NEURontin 100 mg CAP) 100 mg TID PO 08/11/25 21:00 09/10/25 20:59 08/13/25 14:26 100 MG Home Med (Compound Po Narcotic) HS TD 08/12/25 21:00 09/11/25 20:59 Hydromorphone HCl (DiLAUDid 0.5MG INJ) 0.5 mg Q4H PRN IVP SEVERE PAIN (7-10) 07/24/25 10:00 07/29/25 09:59 DC 07/29/25 08:22 0.5 MG Hydromorphone HCl (DiLAUDid 0.5MG INJ) 0.5 mg Q4H PRN IVP SEVERE PAIN (7-10) 07/29/25 13:30 08/03/25 13:29 DC 08/03/25 13:09 0.5 MG Hydromorphone HCl (DiLAUDid 0.5MG INJ) 0.5 mg Q4H PRN IVP SEVERE PAIN (7-10) 08/03/25 18:00 08/07/25 10:03 DC 08/07/25 05:09 0.5 MG Hydromorphone HCl (DiLAUDid 0.5MG INJ) 0.5 mg Q4H PRN IVP SEVERE PAIN (7-10) 08/07/25 10:00 08/11/25 10:32 DC 08/10/25 20:27 0.5 MG Hydromorphone HCl (DiLAUDid 0.5MG INJ) 0.5 mg Q6H PRN IVP SEVERE PAIN (7-10) 08/11/25 11:00 08/16/25 10:59 08/13/25 10:21 0.5 MG Insulin Human Regular (humuLIN R 100 UNIT/ML 3ML) INSULIN SLIDING SCAL... ACHS SQ 07/21/25 07:30 08/20/25 07:29 08/12/25 22:36 3 UNIT Lactated Ringer's 1,000 ml @ 75 mls/hr [id number] IV 07/21/25 00:00 07/21/25 13:17 DC 07/21/25 02:57 75 MLS/HR Lactated Ringer's 1,000 ml @ 75 mls/hr [id number] IV 07/21/25 13:30 07/24/25 11:09 DC 07/24/25 09:27 75 MLS/HR Lactobacillus Rhamnosus ([facility]) 1 each DAILY20 PO 07/26/25 20:00 08/25/25 19:59 08/12/25 21:59 1 EACH Lidocaine (Lidoderm Patch 5%) 1 patch DAILY TP 07/28/25 09:00 08/27/25 08:59 08/12/25 08:35 1 PATCH Lidocaine HCl/Al Hydroxide/Mg Hydroxide/ Dicyclomine HCl 20ML OR AD ONCE PO 08/06/25 16:30 08/07/25 16:29 DC 08/06/25 16:45 20 ML Magnesium Sulfate 50 ml @ 0 mls/hr PROTOCOL PRN IV MAGNESIUM PROTOCOL 07/21/25 07:00 08/20/25 06:59 08/01/25 06:05 25 MLS/HR Methocarbamol (methoCARBamol) 500 mg BID PO 08/11/25 16:00 09/10/25 15:59 08/13/25 10:28 500 MG Metoclopramide HCl (regLAN 10MG IV) 5 mg BID IVP 08/04/25 21:00 09/03/25 20:59 08/13/25 10:27 5 MG Metronidazole/ Sodium Chloride (flaGYL) 500 mg Q8H IV 07/21/25 14:00 07/21/25 13:40 DC Morphine Sulfate (morPHINE 2MG SYG) 2 mg Q4H PRN IVP SEVERE PAIN (7-10) 07/21/25 00:30 07/21/25 13:18 DC 07/21/25 04:46 2 MG Morphine Sulfate (morPHINE 4MG SYG) 4 mg Q3H PRN IV MODERATE PAIN (4-6) 07/21/25 13:30 07/26/25 16:29 DC 07/26/25 10:51 4 MG Norepinephrine 250 ml @ 0 mls/hr PROTOCOL IV 07/20/25 23:30 08/03/25 08:27 DC 07/21/25 10:56 18.45 MLS/HR Ondansetron HCl (zoFRAN 4MG INJ) 4 mg Q4H PRN IVP NAUSEA 07/21/25 13:30 08/20/25 13:29 Ondansetron HCl (zoFRAN 4MG INJ) 4 mg Q6H PRN IV NAUSEA/VOMITING 07/21/25 00:00 07/21/25 13:18 DC Pantoprazole Sodium (PROTonix 40MG INJ) 40 mg BID IV 07/26/25 21:00 08/20/25 08:59 08/13/25 10:27 40 MG Pantoprazole Sodium (PROTonix 40MG INJ) 40 mg BID IVP 08/05/25 21:00 08/06/25 08:39 DC 08/05/25 20:25 40 MG Pantoprazole Sodium (PROTonix 40MG INJ) 40 mg DAILY IV 07/21/25 09:00 07/26/25 09:31 DC 07/26/25 08:55 40 MG Pharmacy Profile Note (Pharmacy Communication) 1 each ONCE MISC 07/21/25 15:30 07/21/25 15:16 DC Pharmacy Profile Note (Pharmacy Communication) 1 each ONCE MISC 08/06/25 16:00 08/07/25 07:07 DC Piperacillin Sod/ Tazobactam Sod 50 ml @ 200 mls/hr ONCE STAT IVPB 07/20/25 19:15 07/20/25 19:29 DC 07/20/25 20:32 200 MLS/HR Piperacillin Sod/ Tazobactam Sod (Zosyn 3.375gm+NS 50ml) 3.375 gm Q12H IV 07/21/25 00:00 07/31/25 00:00 DC 07/30/25 23:55 3.375 GM Piperacillin Sod/ Tazobactam Sod (Zosyn 3.375gm+NS 50ml) 3.375 gm Q8H IVPB 07/31/25 11:30 08/10/25 11:29 DC 08/10/25 04:05 3.375 GM Piperacillin Sod/ Tazobactam Sod (Zosyn 3.375gm+NS 50ml) 3.375 gm Q8H IVPB 08/10/25 13:00 08/20/25 12:59 08/13/25 07:03 3.375 GM Potassium Chloride 100 ml @ 100 mls/hr AD PRN IV POTASSIUM PROTOCOL 07/24/25 08:30 08/23/25 08:29 07/30/25 06:23 100 MLS/HR Potassium Chloride (K-Dur/Klor-Con 20meq) 20 meq AD PRN PO POTASSIUM PROTOCOL 07/24/25 08:30 08/23/25 08:29 07/27/25 20:33 20 MEQ Potassium Chloride (KCl 10% Elixir 20meq/15ml) 20 meq AD PRN PO POTASSIUM PROTOCOL 07/24/25 08:30 08/23/25 08:29 07/31/25 08:15 20 MEQ Psyllium Hydrophilic Mucilloid (Metamucil) 1 tbs BID PO 07/26/25 21:00 08/25/25 20:59 08/13/25 10:32 1 TBS Simethicone (Mylicon) 80 mg Q6H6 PO 07/27/25 12:00 08/26/25 11:59 08/13/25 12:00 80 MG Sodium Bicarbonate 150 meq/Sodium Chloride 1,150 ml @ 0 mls/hr Q0M IVP 07/21/25 14:00 07/26/25 09:31 DC Sodium Chloride (NS 50ml) 50 ml AD IV 07/31/25 11:30 07/31/25 11:12 DC Sodium Chloride (Normal Saline Flush) 10 ml Q8H IJ 08/09/25 11:00 09/08/25 10:59 08/12/25 18:36 10 ML Spironolactone (Aldactone 25mg) 25 mg BID PO 07/25/25 21:00 07/26/25 09:01 DC 07/26/25 08:56 25 MG Sucralfate (Carafate) 1 gm ACHS PO 07/29/25 21:00 08/28/25 20:59 08/13/25 11:30 1 GM Thiamine HCl (Vitamin B-1) 100 mg DAILY IVP 07/22/25 21:00 08/21/25 20:59 08/13/25 10:32 100 MG Thiamine HCl 100 mg/Sodium Chloride 50 ml @ 100 mls/hr Q24H IM 07/21/25 15:30 07/21/25 16:25 DC Vancomycin HCl (Vancomycin 1g/ 250ml Kit) 1 gm ONCE STAT IV 07/20/25 21:23 07/20/25 21:26 DC 07/20/25 22:06 1 GM Vasopressin 20 units/Sodium Chloride 100 ml @ 0 mls/hr PROTOCOL IV 07/21/25 00:30 08/03/25 08:27 DC 07/21/25 00:10 9 MLS/HR DIAGNOSTICS / RADIOLOGY: PATIENT: DALLAS BUCHANAN MR#: [id number] : 1970 SEX: F AGE: 55 LOCATION: 4AH ORDER 36 STATUS: ADM IN REPORT#: [id number] SERVICE 35 REASON: epigastric pain. not tolerating meals. ORDERING PHYSICIAN: SUSAN GANN MD PROCEDURE: ABD PEL W - CT ABDOMEN/PELVIS W/CONTRAST EXAM: CT Abdomen and Pelvis with IV contrast CLINICAL HISTORY: epigastric pain. not tolerating meals. TECHNIQUE: Axial computed tomography images of the abdomen and pelvis with intravenous contrast. CONTRAST: with intravenous contrast. COMPARISON: Compared with the previous CT dated 07/20 and USG dated 07/29 FINDINGS: LUNG BASES: Grossly stable atelectasis and scarring at the lung bases. LIVER: Unremarkable. GALLBLADDER AND BILE DUCTS: The gallbladder is decompressed with a cholecystostomy tube in situ. PANCREAS: Unremarkable. SPLEEN: The spleen is enlarged in size, measuring 15.2 cm. ADRENAL GLANDS: Unremarkable. KIDNEYS, URETERS, AND BLADDER: No hydronephrosis or nephrolithiasis. No ureteral calculi. The urinary bladder is unremarkable. STOMACH AND BOWEL: The ileostomy site appears unremarkable. Interval resolution of previously seen moderate small bowel enteritis. No obstruction. APPENDIX: No CT evidence for appendicitis. PERITONEUM: Near complete interval resolution of previously seen moderate ascites in the abdomen and pelvis. Collection in the perisplenic and infra-splenic region measuring 6.0 x 6.1 x 8.9 cm. Interval resolution of previously seen pneumoperitoneum. Diffuse mesenteric fat stranding, likely postoperative changes. LYMPH NODES: No lymphadenopathy. REPRODUCTIVE: Unremarkable as visualized. VASCULATURE: No aortic aneurysm. ABDOMINAL WALL AND SOFT TISSUES: Interval resolution of previously seen subcutaneous emphysema in the anterior abdominal wall and left lateral chest wall. Abdominal drain in situ with tip in the pelvis. BONES: No fracture or suspicious osseous abnormality. IMPRESSION: 1. Perisplenic and infrasplenic fluid collection measuring 6.0 x 6.1 x 8.9 cm. 2. Splenomegaly, with spleen measuring 15.2 cm. 3. Cholecystostomy tube in situ with decompressed gallbladder. 4. Abdominal drain in situ with tip in the pelvis. 5. No acute findings in the remainder of the abdomen and pelvis. /[facility] DICTATED BY: ELDON MILLER Jr., MD DATE: 08/04/251636 ELECTRONICALLY SIGNED BY: ELDON MILLER Jr., MD DATE: 08/04/25 163 PATIENT: DALLAS BUCHANAN MR#: [id number] : 1970 SEX: F AGE: 55 LOCATION: 4AH ORDER 1524 STATUS: ADM IN REPORT#: [id number] SERVICE 152 REASON: cholecystitis ORDERING PHYSICIAN: BENEDICTO OBRIEN Jr. PROCEDURE: HIDA PHARM - NM HIDA/HEPATOBILI W/ PHARMACO EXAM: HIDA scan. INDICATION: Severe RUQ Pain to rule out cholecystitis. REFERENCE EXAMINATION: USG July 29, 2025. TECHNIQUE: Sequential images of the abdomen were obtained in the anterior projection after IV administration of 6.0 mCi of Tc99m Mebrofenin. FINDINGS: Tracer activity throughout the liver is homogeneous without focal defects. There is prompt excretion of the pharmaceutical into the bile ducts and into the small bowel, without evidence of obstruction. There is no visualization of the gallbladder at the conclusion of the examination. IMPRESSION: Scintigraphic findings are compatible with acute cholecystitis. /[facility] DICTATED BY: ELDON MILLER Jr., MD DATE: 08/01/25 1011 ELECTRONICALLY SIGNED BY: ELDON MILLER Jr., MD DATE: 08/01/25 101 PATIENT: DALLAS BUCHANAN MR#: [id number] : 1970 SEX: F AGE: 55 LOCATION: 4AH ORDER 10 STATUS: ADM IN REPORT#: [id number] SERVICE 09 REASON: ABD PAIN ORDERING PHYSICIAN: NIKKI MUNOZ NP PROCEDURE: ABD 1VW - ABD 1VW EXAM: CR Abdomen, 1 view. CLINICAL HISTORY: Pain. COMPARISON: None provided. FINDINGS: Dilated small bowel loops are seen in mid abdomen. There is a density in the pelvis which may represent a send drainage catheter. No free air is evident. No abnormal calcification. No aggressive appearing osseous lesion. IMPRESSION: Dilated small bowel loops are seen in mid abdomen. Density in the pelvis which may represent a send drainage catheter. /[facility] DICTATED BY: TOBI LEAHY MD DATE: 07/29/25 1033 ELECTRONICALLY SIGNED BY: TOBI LEAHY MD DATE: 07/29/25 103 PATIENT: DALLAS BUCHANAN MR#: [id number] : 1970 SEX: F AGE: 55 LOCATION: [facility] ORDER 18 STATUS: ADM IN REPORT#: [id number] SERVICE 151 REASON: Liver cirrhosis ORDERING PHYSICIAN: LISET DOUGLAS MD PROCEDURE: ABDOMEN - US ABDOMINAL COMPLETE EXAM: US Abdomen complete CLINICAL HISTORY: Liver cirrhosis TECHNIQUE: Real-time ultrasound of the abdomen (complete) with image documentation. COMPARISON: None provided. FINDINGS: LIVER: Liver measures 12.3 cm with a heterogeneous coarse echotexture. GALLBLADDER: Gallbladder contains stones and sludge. Gallbladder is distended. COMMON BILE DUCT: No dilation. PANCREAS: Pancreas not well-visualized due to overlying bowel gas KIDNEYS: Normal renal contours. No renal mass or calculus. No hydronephrosis. SPLEEN: Normal in size and echogenicity. No mass identified. AORTA: No aneurysm. IVC: Unremarkable as visualized. MISCELLANEOUS: Small amount of abdominal ascites. IMPRESSION: 1. Cirrhotic-appearing liver. 2. Cholelithiasis and biliary sludge with gallbladder distension. 3. Small volume ascites. /[facility] DICTATED BY: CYNTHIA JULIAN MD DATE: 07/29/25 1056 ELECTRONICALLY SIGNED BY: CYNTHIA JULIAN MD DATE: 07/29/25 1056 PATIENT: DALLAS BUCHANAN MR#: [id number] : 1970 SEX: F AGE: 55 LOCATION: 2BH ORDER 1108 STATUS: ADM IN REPORT#: [id number] SERVICE 1106 REASON: sob ORDERING PHYSICIAN: PREET BOSTON MD PROCEDURE: CXR1VW - CHEST 1VW CHEST 1VW REASON: sob COMPARISON: Study from 07/21/2025 is available. FINDINGS: Single view of the chest was obtained. Lungs are clear. Heart size is normal. There is no pulmonary vascular congestion. There is a right-sided PIC catheter with tip in superior vena cava. There is a nasogastric tube with the tip in the fundus of the stomach. Mediastinum and bony thorax appear unremarkable. IMPRESSION: 1. No acute cardiopulmonary process 2. The support lines are in satisfactory position.. DICTATED BY: GREER FIORE MD DATE: 07/22/25 1350 ELECTRONICALLY SIGNED BY: GREER FIORE MD DATE: 07/22/25 1354 PATIENT: DALLAS BUCHANAN MR#: [id number] : 1970 SEX: F AGE: 55 LOCATION: 2BH ORDER 0100 STATUS: ADM IN REPORT#: [id number] SERVICE 0100 REASON: PICC LINE ORDERING PHYSICIAN: HEATHER LEACH APRN PROCEDURE: CXR1VW - CHEST 1VW EXAM: CR Chest, single view. CLINICAL HISTORY: PICC line COMPARISON: Prior same day chest radiograph. FINDINGS: Right-sided PICC catheter with tip in the cavoatrial junction. Subsegmental atelectasis in the right lower lobe. No evidence of pleural effusion or pneumothorax. The cardiomediastinal silhouette is within normal limits. No acute osseous abnormality. IMPRESSION: Right-sided PICC catheter with tip in the cavoatrial junction. Subsegmental atelectasis in the right lower lobe. No evidence of pleural effusion or pneumothorax. Compared to the prior study, there is interval placement of the right-sided PICC line and interval resolution of the subsegmental atelectasis in the left lower lobe. /[facility] DICTATED BY: ELDON MILLER Jr., MD DATE: 07/21/25816 ELECTRONICALLY SIGNED BY: ELDON MILLER Jr., MD DATE: 07/21/25816 PATIENT: DALLAS BUCHANAN MR#: [id number] : 1970 SEX: F AGE: 55 LOCATION: [facility] ORDER 14 STATUS: [facility] REPORT#: [id number] SERVICE 12 REASON: CHEST PAIN/COUGH ORDERING PHYSICIAN: ALHAJI SHINE NP PROCEDURE: CXR1VW - CHEST 1VW EXAM: XR Chest, 1 View. CLINICAL HISTORY: 55 year old female with chest pain and cough. COMPARISON: None provided. FINDINGS: LUNGS: The lungs demonstrate evidence of atelectasis. PLEURAL SPACES: A small right pleural effusion is present. HEART: The heart size is normal. BONES: No acute osseous abnormality. IMPRESSION: 1. Small right pleural effusion and right lung base atelectasis. /[facility] DICTATED BY: EDWIGE LEDESMA MD DATE: 07/20/252046 ELECTRONICALLY SIGNED BY: EDWIGE LEDESMA MD DATE: 07/20/252046 PATIENT: DALLAS BUCHANAN MR#: [id number] : 1970 SEX: F AGE: 55 LOCATION: [facility] ORDER 14 STATUS: REG ER REPORT#: [id number] SERVICE 12 REASON: Abdominal Pain ORDERING PHYSICIAN: ALHAJI SHINE NP PROCEDURE: ABD PEL W - CT ABDOMEN/PELVIS W/CONTRAST ADDENDUM REPORT ADDENDUM: Results were shared by telephone at 23:23 pm on 07-20-2025 and acknowledged by Pt nurse Ms. SHIN BOYKIN. /[facility] EXAM: CT Abdomen and Pelvis with Intravenous Contrast CLINICAL HISTORY: 55-year-old female with abdominal pain. TECHNIQUE: Axial computed tomography images of the abdomen and pelvis with intravenous contrast. Dose reduction technique was used including one or more of the following: automated exposure control, adjustment of mA and kV according to patient size, and/or iterative reconstruction. CONTRAST: Omnipaque 350, 75 mL COMPARISON: None provided. FINDINGS: LUNG BASES: Atelectasis and scarring at the lung bases. LIVER: Unremarkable. GALLBLADDER AND BILE DUCTS: Tiny gallstone seen. PANCREAS: Unremarkable. SPLEEN: Unremarkable. ADRENAL GLANDS: Unremarkable. KIDNEYS, URETERS, AND BLADDER: Dueñas catheter seen in the bladder lumen. No hydronephrosis or nephrolithiasis. No ureteral calculi. STOMACH AND BOWEL: Edema or loops of small bowel suggesting moderate small bowel enteritis. Free air in the upper abdomen is seen, suggesting perforated bowel. No obstruction. APPENDIX: No CT evidence for appendicitis. PERITONEUM: Moderate ascites in the abdomen and pelvis. No free air under the diaphragm. LYMPH NODES: No lymphadenopathy. REPRODUCTIVE: Unremarkable as visualized. VASCULATURE: No aortic aneurysm. ABDOMINAL WALL AND SOFT TISSUES: There is air in the subcutaneous soft tissue seen anteriorly, suggesting recent postsurgical changes; please correlate with surgical history. BONES: No fracture or suspicious osseous abnormality. IMPRESSION: 1. Moderate small bowel enteritis with free air in the upper abdomen, suggesting perforated bowel versus post surgical changes. No obstruction. 2. Moderate ascites in the abdomen and pelvis. 3. Air in the subcutaneous soft tissue anteriorly, suggesting recent postsurgical changes; please correlate with surgical history. /[facility] DICTATED BY: EDWIGE LEDESMA MD DATE: 07/20/25 2337 ELECTRONICALLY SIGNED BY: DATE: EXAM: CT Abdomen and Pelvis with Intravenous Contrast CLINICAL HISTORY: 55-year-old female with abdominal pain. TECHNIQUE: Axial computed tomography images of the abdomen and pelvis with intravenous contrast. Dose reduction technique was used including one or more of the following: automated exposure control, adjustment of mA and kV according to patient size, and/or iterative reconstruction. CONTRAST: Omnipaque 350, 75 mL COMPARISON: None provided. FINDINGS: LUNG BASES: Atelectasis and scarring at the lung bases. LIVER: Unremarkable. GALLBLADDER AND BILE DUCTS: Tiny gallstone seen. PANCREAS: Unremarkable. SPLEEN: Unremarkable. ADRENAL GLANDS: Unremarkable. KIDNEYS, URETERS, AND BLADDER: Dueñas catheter seen in the bladder lumen. No hydronephrosis or nephrolithiasis. No ureteral calculi. STOMACH AND BOWEL: Edema or loops of small bowel suggesting moderate small bowel enteritis. Free air in the upper abdomen is seen, suggesting perforated bowel. No obstruction. APPENDIX: No CT evidence for appendicitis. PERITONEUM: Moderate ascites in the abdomen and pelvis. No free air under the diaphragm. LYMPH NODES: No lymphadenopathy. REPRODUCTIVE: Unremarkable as visualized. VASCULATURE: No aortic aneurysm. ABDOMINAL WALL AND SOFT TISSUES: There is air in the subcutaneous soft tissue seen anteriorly, suggesting recent postsurgical changes; please correlate with surgical history. BONES: No fracture or suspicious osseous abnormality. IMPRESSION: 1. Moderate small bowel enteritis with free air in the upper abdomen, suggesting perforated bowel versus post surgical changes. No obstruction. 2. Moderate ascites in the abdomen and pelvis. 3. Air in the subcutaneous soft tissue anteriorly, suggesting recent postsurgical changes; please correlate with surgical history. /[place] DICTATED BY: EDWIGE LEDESMA MD DATE: 07/20/252317 ELECTRONICALLY SIGNED BY: EDWIGE LEDESMA MD DATE: 07/20/252317 ASSESSMENT: Suspected Bowel Perforation POA Perisplenic and infrasplenic fluid collection with splenomegaly - suspected abscess Hyponatremia Bacterial peritonitis Cholelithiasis Small Bowel Obstruction, Suspected Anastomotic Leak Bilious peritonitis s/p Diagnostic laparoscopy, abdominal washout, drain placement and diverting loop ileostomy creation Atrophic vaginitis hyperkalemia Iron Deficiency anemia Diabetes Mellitus Type 2 POA Acute Kidney Injury POA Septic Shock POA Cirrhosis of liver POA Esophageal Varices Recent Robotic takedown of splenic flexure mobilization, robotic takedown of colovesical fistula with sigmoid colectomy and end-to-end anastomosis surgery PLAN: Bilious peritonitis status post Diagnostic laparoscopy, abdominal washout, drain placement and diverting loop ileostomy creation -Continue close monitoring of the patient -continue physical therapy -Monitor CHRIS drain output -no output in CHRIS drain. Follow up with surgery regarding CHRIS drain removal. -Continue Lactated Ringer's at 75 ml/hr for volume resuscitation and electrolyte replacement -continue Zosyn [day 24] and fluconazole [day 24] -Flexeril 5 mg t.i.d. has been started by the Surgery team. -Probiotics and Fibers have been added for bloating. - Protonix IV increased to twice daily. - Patient has been started on [place] by general surgery for abdominal pain, and is advised to take Diluadid only for breakthrough pain. - Patient was started on fentanyl patch on 08/09/2020 for pain control. - On 08/11, fentanyl patch dose was increased to 25 mcg. Frequency of Dilaudid was increased from q.4h to q.6h. - As per surgery, patient was started on methocarbamol and gabapentin. - HIDA scan positive for acute cholecystitis. Surgery has been made aware. - IR did a Fluoroscopy and ultrasound-guided placement of cholecystotomy tube and cholecystogram on 08/02/2025. -Dr. Sol saw the patient and he recommended 25g of 25% albumin for 3 days. -Gastroenterology is planning to do EGD and they did biopsy from 3 sites. GI said that they will consult radiology to check whether CHRIS drain and cholecystostomy tube are in place. -Surgery wanted to do a CT abdomen and pelvis with IV contrast. CT scan showed perisplenic and infrasplenic fluid collection measuring 6.0 x 6.1 x 8.9 cm, splenomegaly, with spleen measuring 15.2 cm, cholecystostomy tube in situ with decompressed gallbladder, abdominal drain in situ with tip in the pelvis. -GI said that they will consult radiology to check whether CHRIS drain and cholecystostomy tube are in place. 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 It showed some stones and the tube was flushed. She underwent drainage of perisplenic fluid collection with drainage catheter insertion. G stain and fluid culture are pending. -We ordered T.bilirubin and we will monitor the output from colostomy tube. -We are also planning to add metoclopramide. Perisplenic and infrasplenic fluid collection with splenomegaly * CT scan showed perisplenic and infrasplenic fluid collection measuring 6.0 x 6.1 x 8.9 cm, splenomegaly, with spleen measuring 15.2 cm * IR drained the perisplenic and intra splenic fluid with placement of drainage catheter. * Pending culture results. No Growth so far. * Patient is currently on Zosyn and fluconazole. * Follow up with ID recommendations Bacterial Peritonitis * Post Surgical patient with Bacterial peritonitis positive for ESBL * Culture and sensitivity shows susceptibility to Zosyn, Gentamicin and Meropenem. * Likely secondary to post-operative intraabdominal infection with risk of ongoing contamination. * Currently patient is on Zosyn (Day 24) * For her continuos pain she is started on Fentanyl 25mcg. Cholelithiasis * Patient complained of upper abdominal pain * Ultrasound abdomen showed: Cirrhotic-appearing liver * Cholelithiasis and biliary sludge with gallbladder distension and Small volume ascites. * Hida scan shows acute cholecystitis. * Per Surgery: IR to be consulted for cholecystostomy tube placement. * IR did a Fluoroscopy and ultrasound-guided placement of cholecystotomy tube and cholecystogram on 08/02/2025. * IR evaluated patient in the labour market economist for cholecystostomy tube placement. Patient was found to have normally positioned tube with some stones for which the tube was flushed.. Small Bowel Obstruction (Resolved) * Patient complaints of abdominal pain which is 9/10 on intensity 07/29/25 * Abdominal Xray showed: Dilated small bowel loops are seen in mid abdomen * Perform Serial abdominal exams * Pain management(avoid excess opioids if ileus is suspected) * Evaluate drain, bowel status * Monitor for resolution vs progression of Ileus/obstruction. 07/29/25 Bowel Perforation, Dehiscence of the anastomosis - Patient had repair of colovesicular fistula with sigmoid colon resection and anastomosis on 07/09/25. - CT abdominal pelvis w/contrast done on 07/20/2025 showed Free air in the upper abdomen is seen, suggesting perforated bowel vs post surgical changes. No obstruction. -underwent Diagnostic laparoscopy, abdominal washout, drain placement and diverting loop ileostomy creation for biliary peritonitis Atrophic vaginitis * Her bleeding is resolved * We did a pelvic examination. * Ordered topical estrogen. * Urinalysis showed cloudy urine, protein 30, trace occult blood, RBC is 11 to 25, WBC is 26 to 50. hyperkalemia * Today his potassium is 4 * Will repeat her labs tomorrow. Iron Deficiency anemia * Hemoglobin today is 8.9. * Iron sucrose (venofer) was ordered. * Anemia panel has been ordered. Results showed Iron 24L, %sat 16.3 and TIBC 147L. 07/30/25 * Recommend trending Hgb and transfuse as needed to goal Hgb >7.25 * Iron level is 20L, % saturation 11.9, TIBC 167L, Ferritin 129. 9 Septic Shock -resolved -Her WBC is 5.6. 08/10/2025 -Her WBC during the presentation was 21.2 -lactic acid is 1.5 on 07/31/2025 -blood and urine culture results are negative Acute Kidney Injury, Resolved -Creatinine improved from 1.6-1.1-0.7-0.6-0.6-0.6-0.6-0.6-0.5-0.6-0.6-0.5-0.5-0.3-0.6-0.4-0.6 08/09/2025 -Initial FeNA is 0.1 %, probably secondary to dehydration and NSAIDs overuse. -initial Urine sodium is < 13 and urine creatinine is 132.17. -Avoid nephrotoxic agents, eg. NSAIDS. -Weight patient daily. -Monitor intake and output. -Ordered urinalysis Cirrhosis of liver -Patient has a past history of cirrhosis of liver. - Liver functions are within normal limits. AST 20, ALT 9 and ALP 67. - Avoid NSAIDs and high dose acetaminophen. -Maintain appropriate volume of the patient. -Patient has been started on Spironolactone 25 mg b.i.d. and Lasix 20 mg once daily. 07/25/25 -Albumin was given for the hypotension. -Patients family is requesting that Dr. Sol be involved in the patients care. Supportive measures - Multimodal pain management -Maintain IV fluids, correct electrolytes -Serial abdominal exams -Milieu Manager on avoidance of NSAIDS and other related triggers. -Monitor Vitals and perform morning labs regularly Continue GI prophylaxis with [place] Continue DVT prophylaxis with SCDs, we will avoid heparin due to history of allergies to porcine, we will coordinate with surgery consult on initiation of other anticoagulants ATTESTATION BY PHYSICIAN I have seen and examined the patient. I reviewed the documentation, medical decision making, and treatment plan as noted by the resident provider above. I agree with the findings and plan of care. AYAKA BARR MD, MUHAMMAD H MD Aug 13, 2025 16:16
--- NOTE | 2025-08-13 18:01 | PN ---
GENERAL SURGERY PROGRESS NOTE Date/Time Patient Seen: [ ] Interval History: [55-year-old female, postop diagnostic laparoscopy, abdominal washout, drain placement and diverting loop ileostomy creation by Dr. Gann on 07/21/2025 patient tolerating full liquids ambulating not much out of the drains (tree tube, IR drain, reg CHRIS) Current Medications Medications (Trade) Dose Ordered Sig/Gregory Route Start Time Stop Time Status Last Admin Dose Admin Albumin Human 50 ml @ 100 mls/hr Q12H IV 08/02/25 21:30 08/05/25 09:59 DC 08/05/25 10:12 100 MLS/HR Albumin Human 50 ml @ 0 mls/hr Q12H IV 08/02/25 18:30 08/02/25 20:04 DC Albumin Human 100 ml @ 0 mls/hr ONCE IV 07/25/25 12:00 07/26/25 11:59 DC 07/25/25 13:43 100 MLS/HR Clotrimazole (Lotrimin) 1 GM BID TP 07/29/25 21:00 08/28/25 20:59 08/13/25 10:28 1 GM Cyclobenzaprine HCl (Cyclobenzaprine HCl) 5 mg TID PO 07/25/25 14:00 07/26/25 14:00 DC 07/26/25 14:19 5 MG Fat Emulsion Intravenous 250 ml @ 42 mls/hr DAILY10 IV 08/13/25 10:00 09/12/25 09:59 08/13/25 10:28 42 MLS/HR Fentanyl (DURAgesic 12 MCG/HR PATCH) 12 mcg Q72H TD 08/09/25 13:00 08/09/25 15:19 DC Fentanyl (DURAgesic 12 MCG/HR PATCH) 12 mcg Q72H TD 08/09/25 15:30 08/11/25 10:32 DC 08/09/25 15:38 12 MCG Fentanyl (DURAgesic 25 MCG/HR PATCH) 25 mcg Q72H TD 07/31/25 14:30 07/31/25 14:44 DC Fentanyl (DURAgesic 25 MCG/HR PATCH) 25 mcg Q72H TD 08/12/25 15:30 08/12/25 16:00 DC Fentanyl (DURAgesic 25 MCG/HR PATCH) 25 mcg Q72H TD 08/12/25 21:00 08/17/25 20:59 08/12/25 22:03 25 MCG Fluconazole/ Sodium Chloride (DiFLUCan 200 MG/ NS 100 ML) 200 mg Q24H IVPB 07/21/25 21:00 08/20/25 20:59 08/12/25 22:04 200 MG Furosemide (LASix 20MG TAB) 20 mg DAILY PO 07/25/25 11:00 08/02/25 11:53 DC 08/02/25 09:42 20 MG Gabapentin (NEURontin 100 mg CAP) 100 mg TID PO 07/29/25 14:00 08/02/25 09:21 DC 08/01/25 20:14 100 MG Gabapentin (NEURontin 100 mg CAP) 100 mg TID PO 08/11/25 21:00 09/10/25 20:59 08/13/25 14:26 100 MG Home Med (Compound Po Narcotic) HS TD 08/12/25 21:00 09/11/25 20:59 Insulin Human Regular (humuLIN R 100 UNIT/ML 3ML) INSULIN SLIDING SCAL... ACHS SQ 07/21/25 07:30 08/20/25 07:29 08/12/25 22:36 3 UNIT Lactated Ringer's 1,000 ml @ 75 mls/hr [id number] IV 07/21/25 00:00 07/21/25 13:17 DC 07/21/25 02:57 75 MLS/HR Lactated Ringer's 1,000 ml @ 75 mls/hr [id number] IV 07/21/25 13:30 07/24/25 11:09 DC 07/24/25 09:27 75 MLS/HR Lactobacillus Rhamnosus ([facility]) 1 each DAILY20 PO 07/26/25 20:00 08/25/25 19:59 08/12/25 21:59 1 EACH Lidocaine (Lidoderm Patch 5%) 1 patch DAILY TP 07/28/25 09:00 08/27/25 08:59 08/12/25 08:35 1 PATCH Lidocaine HCl/Al Hydroxide/Mg Hydroxide/ Dicyclomine HCl 20ML OR AD ONCE PO 08/06/25 16:30 08/07/25 16:29 DC 08/06/25 16:45 20 ML Methocarbamol (methoCARBamol) 500 mg BID PO 08/11/25 16:00 09/10/25 15:59 08/13/25 10:28 500 MG Metoclopramide HCl (regLAN 10MG IV) 5 mg BID IVP 08/04/25 21:00 09/03/25 20:59 08/13/25 10:27 5 MG Metronidazole/ Sodium Chloride (flaGYL) 500 mg Q8H IV 07/21/25 14:00 07/21/25 13:40 DC Norepinephrine 250 ml @ 0 mls/hr PROTOCOL IV 07/20/25 23:30 08/03/25 08:27 DC 07/21/25 10:56 18.45 MLS/HR Pantoprazole Sodium (PROTonix 40MG INJ) 40 mg BID IV 07/26/25 21:00 08/20/25 08:59 08/13/25 10:27 40 MG Pantoprazole Sodium (PROTonix 40MG INJ) 40 mg BID IVP 08/05/25 21:00 08/06/25 08:39 DC 08/05/25 20:25 40 MG Pantoprazole Sodium (PROTonix 40MG INJ) 40 mg DAILY IV 07/21/25 09:00 07/26/25 09:31 DC 07/26/25 08:55 40 MG Pharmacy Profile Note (Pharmacy Communication) 1 each ONCE MISC 07/21/25 15:30 07/21/25 15:16 DC Pharmacy Profile Note (Pharmacy Communication) 1 each ONCE MISC 08/06/25 16:00 08/07/25 07:07 DC Piperacillin Sod/ Tazobactam Sod 50 ml @ 200 mls/hr ONCE STAT IVPB 07/20/25 19:15 07/20/25 19:29 DC 07/20/25 20:32 200 MLS/HR Piperacillin Sod/ Tazobactam Sod (Zosyn 3.375gm+NS 50ml) 3.375 gm Q12H IV 07/21/25 00:00 07/31/25 00:00 DC 07/30/25 23:55 3.375 GM Piperacillin Sod/ Tazobactam Sod (Zosyn 3.375gm+NS 50ml) 3.375 gm Q8H IVPB 07/31/25 11:30 08/10/25 11:29 DC 08/10/25 04:05 3.375 GM Piperacillin Sod/ Tazobactam Sod (Zosyn 3.375gm+NS 50ml) 3.375 gm Q8H IVPB 08/10/25 13:00 08/20/25 12:59 08/13/25 17:16 3.375 GM Psyllium Hydrophilic Mucilloid (Metamucil) 1 tbs BID PO 07/26/25 21:00 08/25/25 20:59 08/13/25 10:32 1 TBS Simethicone (Mylicon) 80 mg Q6H6 PO 07/27/25 12:00 08/26/25 11:59 08/13/25 17:26 80 MG Sodium Bicarbonate 150 meq/Sodium Chloride 1,150 ml @ 0 mls/hr Q0M IVP 07/21/25 14:00 07/26/25 09:31 DC Sodium Chloride (NS 50ml) 50 ml AD IV 07/31/25 11:30 07/31/25 11:12 DC Sodium Chloride (Normal Saline Flush) 10 ml Q8H IJ 08/09/25 11:00 09/08/25 10:59 08/12/25 18:36 10 ML Spironolactone (Aldactone 25mg) 25 mg BID PO 07/25/25 21:00 07/26/25 09:01 DC 07/26/25 08:56 25 MG Sucralfate (Carafate) 1 gm ACHS PO 07/29/25 21:00 08/28/25 20:59 08/13/25 17:16 1 GM Thiamine HCl (Vitamin B-1) 100 mg DAILY IVP 07/22/25 21:00 08/21/25 20:59 08/13/25 10:32 100 MG Thiamine HCl 100 mg/Sodium Chloride 50 ml @ 100 mls/hr Q24H IM 07/21/25 15:30 07/21/25 16:25 DC Vancomycin HCl (Vancomycin 1g/ 250ml Kit) 1 gm ONCE STAT IV 07/20/25 21:23 07/20/25 21:26 DC 07/20/25 22:06 1 GM Vasopressin 20 units/Sodium Chloride 100 ml @ 0 mls/hr PROTOCOL IV 07/21/25 00:30 08/03/25 08:27 DC 07/21/25 00:10 9 MLS/HR Physical Examination: GENERAL: [No acute distress.] HEAD: [Normal with no signs of head trauma.] EYES: [PERRLA, EOMI, conjunctiva and sclera normal.] ENT: [Hearing grossly intact, normal oropharynx.] NECK: [Supple without JVD. There is no tenderness, lymphadenopathy, or masses. No thyromegaly. Normal carotid upstrokes without bruits.] LUNGS: [Clear breath sounds bilaterally. There are right basilar rales one third of the way up the chest. No wheezes, or rhonchi.] HEART: [Normal rate and rhythm. Normal S1 and S2 without mumurs, gallop or rub.] VASC: [Peripheral pulses +2 bilaterally.] ABD: [some upper abdominal tenderness soft nondistended; incisions c/d/i : [Not examined] LYMPH: [No lymphadenopathy noted.] EXT: [No clubbing, cyanosis or edema.] SKIN: [No rashes or lesions noted.] NEURO: [Awake, alert, and oriented x3. No focal sensory or strength deficits noted.] Vital Signs (last 8hr) Date Time Temp Pulse Resp B/P (MAP) Pulse Ox O2 Delivery O2 Flow Rate FiO2 08/13/25 16:00 98.2 96 18 124/72 98 Room Air 08/13/25 12:00 97.9 74 18 112/74 94 Room Air Laboratory: [ ] Hematology Labs: Test 08/13/25 04:53 Range/Units White Blood Count 3.9 L 4.8-10.8 K/uL Red Blood Count 2.97 L 4.00-5.50 MIL/uL Hemoglobin 8.9 L 12.0-16.0 g/dL Hematocrit 27.6 L 36-48 % Mean Corpuscular Volume 92.9 79-99 fL Mean Corpuscular Hemoglobin 30.0 27.0-33.0 pg Mean Corpuscular Hemoglobin Concent 32.2 32.0-36.0 g/dL Red Cell Distribution Width 17.3 H 11.0-15.5 % Platelet Count 183 130-400 K/uL Mean Platelet Volume 9.4 7.5-10.5 fL Nucleated Red Blood Cells 0.0 0.0-0.19 % Chemistry Labs: Test 08/13/25 11:54 08/13/25 04:53 Range/Units Whole Blood Glucose 136 H 70-110 MG/DL Sodium Level 137 136-145 mmol/L Potassium Level 4.0 3.5-5.1 mmol/L Chloride Level 106 101-111 mmol/L Carbon Dioxide Level 21 21-32 mmol/L Blood Urea Nitrogen 9 7-18 mg/dL Creatinine 0.7 0.5-1.0 mg/dL Glomerular Filtration Rate Calc 101 >90 mL/min Random Glucose 124 H 70-105 mg/dL Total Calcium 8.5 8.5-10.1 mg/dL Diagnostics / Radiology: [Copy/Paste Echos/Imaging Report here] Impression and Plan: [55-year-old female, postop diagnostic laparoscopy, abdominal washout, drain placement and diverting loop ileostomy creation by Dr. Gann on 07/21/2025 doing better continue drains advance to soft diet TAMMI DENG MD Aug 13, 2025 18:00
[2025-08-13] MEDS: M.V.I. IV [ADULT] 10 ML, MULTITRACE-4 ADULT 10ML VIAL 3 ML in CLINIMIX-E4.25%AA/D5+LYT2... IV ONE (20:15)
[2025-08-14] VITALS: BP 110/58; PULSE 87; RESP 18; TEMP 98.2
--- NOTE | 2025-08-14 01:46 | NUR ---
nurse note patient alert and oriented times 3. plan of care discussed with her and she verbalized understanding. patient looks comfortable in bed, but she still asks for her "dilaudid" and says she has severe abdominal pain rated 7-10. Her ileostomy bag was leaking, Kala and I changed it. Ileostomy is draining brown fluid with some brown formed stool. I flushed her accordian drain and cholecystostomy drain with 10 ml of normal saline flush. She has no output on the chacorta drain. Encouraged her to eat and she refuses and only wants water. She has slept intermittently about 4 hours tonight. Frida and I will do a bed bath later tonight. call light within reach, bed alarm on, 2 side rails up. will continue to monitor patient.
[2025-08-14 04:00] VITALS: BP 98/50; PULSE 79; RESP 18; TEMP 98
[2025-08-14 04:05] LABS: NUCLEATED RED BLOOD CELLS 0.0 % (0.0-0.19); PLATELET COUNT (AUTO) 196.0 K/uL (130-400); RED BLOOD CELL COUNT(AUTO) 2.96 MIL/uL (4.00-5.50); RED CELL DISTRIBUTION WIDTH 17.3 % (11.0-15.5); WHITE BLOOD COUNT (AUTO) 4.1 K/uL (4.8-10.8)
[2025-08-14 04:25] LABS: CREATININE 0.6 mg/dL (0.5-1.0); GLOMERULAR FILTR. RATE CALC 105.0 mL/min (>90); GLUCOSE,RANDOM 127.0 mg/dL (70-105); SODIUM SERUM 139.0 mmol/L (136-145); UREA NITROGEN, BLOOD 13.0 mg/dL (7-18)
[2025-08-14 08:00] VITALS: BP 99/70; PULSE 88; RESP 18; TEMP 98.6
[2025-08-14 08:06] VITALS: O2SAT 97
[2025-08-14 12:00] VITALS: BP 100/55; PULSE 87; RESP 18; TEMP 97.9
--- NOTE | 2025-08-14 14:26 | PN ---
[facility] PROGRESS NOTE Date of Service: Aug 14, 2025 Time of Service: 13:44 SUBJECTIVE: Ms. Gray is a 55-year-old female that was seen and examined today on 07/20/2025. Patient reports that she came to the emergency department with a chief complaint of abdominal pain. Onset was 07/09/2025. Location is all four quadrants. Duration is constant. Character is described as pressure and " like I have a lot of gas trapped. " there was no alleviating factors. There was no aggravating factors. Patient reports associated abdominal swelling. 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 After the discharge she was taking pain medications and her condition started worsening after few days. She is in constant follow up with Dr Gann. Today in the emergency department WBCs 21.2, left shift neutrophils 85.5%, BUN 26, creatinine 3.1, GFR 17, lactic acid 8.0, no urinalysis has been collected or sent to lab, CT of abdomen and pelvis showed of free air in the abdomen which could be a suspected bowel perforation versus postsurgical changes, moderate ascites, fissure post surgical changes. Chest x-ray shows right pleural effusion. Additionally patient had a heart rate of 125, respirations 26, together with leukocytosis and lactic acidosis patient met clinical sepsis criteria additionally patient's blood pressure dropped to 85/50 mmHg requiring vasopressor support therefore meeting criteria for septic shock. Patient will be admitted to the intensive care unit. Emergency room physician spoke with patient's surgeon, Dr. Gann who requested patient be admitted under hospitalist service and she will follow this case along. 07/21/25 Patient was evaluated at the bedside. She was accompanied by her daughter. She is oriented to the time, place and person. She complained of abdominal pain in all the quadrants. She hasn't had bowel movement since Saturday and also is unable to pass flatus at this time. She has guarding, rigidity and tenderness all over the abdomen, showing the signs of peritonitis. She was seen by Dr Gann this m and is planned to be taken to OR this afternoon. Dueñas catheter is in place, as she wasn't able to pass the urine. There is no fever, chills and any other signs of infection. 07/22/25 Patient was evaluated at the bedside. She was accompanied by her daughter. She is oriented to the time, place and person. She underwent Diagnostic laparoscopy, abdominal washout, drain placement and diverting loop ileostomy creation, The procedure revealed Bilious peritonitis, 2 mm perforation of the colonic anastomosis. She is hemodynamically stable with Blood pressure of 110/73 and HR of 83. Currently she complains of abdominal pain which is getting better than yesterday, its 3-4/10 intensity. There is no rigidity. She is anxious about the outcomes and had discussion regarding her current clinical status and lab parameters. There is no fever, chills and any other signs of infection. 07/23/25 Patient was evaluated at the bedside. She was accompanied by her daughter. She is oriented to the time, place and person. She status post diagnostic laparoscopy, abdominal washout, drain placement and diverting loop ileostomy creation. Currently she complains of abdominal pain which is 5/10 intensity. She also complaints of mild lower back pain There is no fever, chills and any other signs of infection. She has CHRIS drain in-situ with clear fluid along with colostomy bag. She is currently tolerating clear liquid diet. 07/24/2025 Patient is seen and examined at the bedside. Vitals blood pressure ranging in 100s/50s, pulse rate 50s, SpO2 greater than 95% on room air. She mentions about experiencing pressure-like discomfort on the right side of the abdomen and pain when she tries to eat. No acute events last night. She denies fever, chills, nausea, vomiting, chest pain. CHRIS output approximately 100cc/hr, serosanguineous fluid. Ileostomy bag in place. She is tolerating clear liquid diet without any nausea/vomiting. Labs hemoglobin 9.8, BUN 38, creatinine improved from 1.6-1.1. 07/25/2025 Patient is seen and examined at the bedside. She complains of abdominal pain which is 7/10 in intensity. No acute events last night. She denies fever, chills, nausea, vomiting, chest pain. CHRIS output approximately 100cc/hr, serosanguineous fluid. Ileostomy bag in place. The patient has been started on spironolactone 25mg BID and Lasix 20 mg once daily. There is high output from CHRIS but it is clear serous, most likely related to her ascites from her history of liver cirrhosis. She is tolerating clear liquid diet without any nausea/vomiting. 07/26/2025 Patient is seen and examined at the bedside. She complains of abdominal pain which remains constant. No acute events last night. She denies fever, chills, nausea, vomiting, chest pain. Patient is status post with a CHRIS drain. The drain has been collecting the serosanguineous fluid secondary to ascites. She has been tolerating liquid diet and her diet has been advanced to soft diet. She still h as bloating for which probiotics and fibers has been recommended. Hemoglobin has gradually trended down to 9.2 and was given IV Venofer. Patient to get up and ambulate and work with physical therapy. 07/27/2025 Patient is seen and examined at the bedside. She complains of abdominal pain which is 6/10 in intensity. No acute events last night. She denies fever, chills, nausea, vomiting, chest pain. Patient is unable to tolerate the soft diet, hence she is currently receiving the liquid diets. The CHRIS drain output is still high and there was small amount of drainage observed in the right ileostomy. 07/28/2025 Patient is seen and examined at the bedside. She complains of abdominal pain which is 9/10 in intensity. No acute events last night. She denies fever, chills, nausea, vomiting, chest pain. Patient reported pain after eating but no nausea or vomiting. WBC is gradually trending up from 8.3-7.3-11.1-11.8. She had lidocaine patch placed this morning. She was started on simethicone 80 mg yesterday. Pertinent she is currently receiving Dilaudid 0.5 mg. Abdominal ultrasound has been ordered for further assessment. 07/29/2025 Patient is seen and examined at the bedside. She continues to complain of severe abdominal pain, rated 9/10 in intensity, unchanged from prior. She is currently receiving Dilaudid 0.5 mg for pain. She reports discomfort related to Dueñas catheterization. She denies fever, chest pain, nausea or vomiting at this time. No acute events were reported overnight. Blood pressure noted today is noted to be 98/54 mm Hg which is slightly low. Per surgery team, stoma is likely to be removed today. Hemoglobin has trended down from 9.7 g/dl to 9.0 g/dl. 07/30/2025 Patient is seen and examined at the bedside. She continues to complain of severe abdominal pain. Her abdominal distention has slightly improved. Dueñas's catheter was removed due to persistent discomfort. We will continue with scheduled removal of the ascites fluid and from CHRIS bulb. Ultrasound of abdomen was concerning for cholelithiasis with biliary sludge and gallbladder distention. HIDA scan was performed today. If consistent with cholecystitis patient will need cholecystostomy tube placement. 07/31/2025 Patient is seen and examined at the bedside. She was accompanied by her daughter. She continues to complain of severe abdominal pain. She is currently on Dilaudid 0.5mg Q4H PRN, which relieves the symptoms for 2-3 hours, after that she develops same level of pain and discomfort again. Currently awaiting the HIDA scan results. Her sodium level is 133 and albumin level is trending downwards from 2.3 to 2.1. Her Iron panel results showed: Iron 20L, TIBC 147L and %sat 16.3L. For her continuos pain she is started on Fentanyl 25mcg. CHRIS drain culture has beens sent. Based on the results of HIDA scan, CT chest will be planned. 08/01/2025: Patient is seen and examined this morning at bedside. She was accompanied by her daughter. The patient complains of severe abdominal pain. She is currently being managed with [place], and Dilaudid for breakthrough pain. HIDA scan results are back, and show acute cholecystitis. Surgery has been made aware of the results. IR has been consulted for cholecystostomy tube placement. The patient will be started on PPN, as recommended by general surgery. The patient follows with Dr. Sol outpatient for her liver cirrhosis. The patients daughter would like her entry level account representative Dr. Sol to be involved in the patients care, and be updated with her status. 08/02/2025: Patient is seen and evaluated in the room 432. She was accompanied by her daughter. She complains of severe abdominal pain. She also complained of bleeding through her vagina, pink tinged urine. Her vitals are in the normal range. Her labs are in the normal range except for Hb is 8.6, Na is 135, K is 5.2, BUN is 4, Glucose is 150, CRP is 103.90. She went for placement of cholecystectomy tube by IR. We did a pelvic exam and ordered a vaginal estrogen cream and urinalysis. Also for her hyperkalemia we checked the potassium again and its 4.1. So we will repeat the labs tomorrow. We ordered a dose of albumin for her. 08/03/2025: Patient is seen and evaluated in the room 432. She has mild abdominal pain today. Her pain improved after the placement for cholecystotomy tube. Her vitals are in the normal range. Her labs are normal except for hemoglobin 8.2, glucose 156, CRP 89.8. Her aerobic and anaerobic culture of drain showed no growth. Gastroenterology saw the patient and they recommended 25 grams of 25% IV albumin q12H for 3 days. Her bleeding through the vagina decreased. The drainage through the left abdomen is 100ml, right abdomen is 20ml, left anterior abdomen 5ml. 08/04/2025: Patient is seen and evaluated in the room 432. She has abdominal pain today. Her vitals are in the normal range. Her labs are normal except for Hb is 8, CRP is 72.10, glucose is 130. Aerobic and anaerobic drain culture showed no growth. She is not able to tolerate her food. The drainage through the left abdomen is 100ml, right abdomen is 20ml, left anterior abdomen 5ml. Gastroenterology is planning to do EGD tomorrow. Surgery wanted to do a CT abdomen and pelvis with IV contrast. CT scan showed perisplenic and infrasplenic fluid collection measuring 6.0 x 6.1 x 8.9 cm, splenomegaly, with spleen measuring 15.2 cm, cholecystostomy tube in situ with decompressed gallbladder, abdominal drain in situ with tip in the pelvis. We ordered T.bilirubin and we will monitor the output from colostomy tube. We are also planning to add metoclopramide. 08/05/2025: Patient is seen and evaluated in the room 432. She has abdominal pain today. Her abdomen is tender to touch and warm. Her vital signs are in the normal range except for BP is 117/45. Her labs are normal except for Hb is 8.2, sodium is 135, creatinine is 0.3, CRP is 60.9 The drain output from left abdomen is 40ml, left anterior abdomen 0ml, right abdomen 0ml. Her saturation is 100% on 10L of O2. Her labs are in the normal range except for Hb is 8.2, HCT is 25.9, sodium is 135, glucose is 107, CRP is 60.90. She underwent endoscopy today and they did biopsy from 3 sites. GI said that they will consult radiology to check whether CHRIS drain and cholecystostomy tube are in place. General surgery will consult IR to evaluate perisplenic fluid collection for potential aspiration. 08/06/2025: Patient is seen and evaluated in the room 432. She has abdominal pain today. Her abdomen is tender to touch and warm. Her vital signs are in the normal range except for 97/63. Her labs are in the normal range except for Hb is 8.1, sodium is 135, blood glucose is 151, CRP 53.60. We are waiting for IR consult for evaluation and for potential aspiration of perisplenic fluid. The drain output from right abdomen is 20ml. 08/07/2025: Patient is seen and evaluated in the room 432. She has abdominal pain today. Her abdomen is tender to touch and warm. Her vital signs are in the normal range except for blood pressure which is 102/60. Her labs are in the normal range except for Hb is 8.5, WBC is 4.4, RDW is 17.3, sodium is 134, glucose is 147. We are waiting for IR consult for evaluation and for potential aspiration of perisplenic fluid. The drain output from right abdomen is 20ml. The [employer] told me that she eats her food after taking her pain medications. Nurse is planning to start full liquid diet for lunch. 08/08/2025: She was evaluated at the bedside this morning. She is AAO x3. she complained of epigastric pain which gets worse with food . Moderate tenderness was appreciated on the epigastric region. Her blood pressure is 99/46, pulse 80. Remarkable lab is for WBC of 4.8, hemoglobin 9, CRP 43.90. She is scheduled with IR for perisplenic fluid aspiration and checking the position of cholecystostomy tube. She is on full liquid diet. She is on Zosyn, fluconazole. Surgery, GI, ID on the board. Rest of the plan as discussed below. 08/09/2025: Patient went to [facility]head worker for PROCEDURE. As per nurse, her cholecystostomy tube was already correctly positioned but had some stones so tube was flushed. She complained of epigastric and pelvic pain. For pain control, fentanyl patch has been ordered. She is pending perisplenic fluid aspiration by IR. Her blood pressure is 98/58, pulse 90. She is currently NPO. She is on Zosyn, fluconazole. Surgery, GI, ID on the board. Rest of the plan as discussed below. 08/10/2025: Patient was seen and examined at bedside. She underwent CT GUIDED PERISPLENIC PIGTAIL DRAINAGE CATHETER PLACEMENT with Aspiration of perisplenic fluid. There has been 25 ml sanguinous drainage so far in the catheter. Her cholecystostomy tube has had 30 mL drainage in the past 24 hours. She is currently on clear liquid diet tolerating it well. She continues to complain pain in her abdomen without any peritoneal signs. She was started on fentanyl patch yesterday. Gram stain and body fluid culture were sent after drainage of perisplenic abscess which showed RARE GRAM POSITIVE COCCI after 1 day. Patient is currently on Zosyn. 08/11/2025: Patient was seen and examined. She continues to complain of abdominal pain. Her multimodal pain medications were adjusted with fentanyl increased to 25mcg and Dilaudid frequency changed from q.4h to q.6h. She is currently on clear liquid diet and complains of pain while eating. She continues on Zosyn and fluconazole. We are waiting for culture results after drainage of perisplenic abscess. Incision site is clean, dry and intact. Will continue to follow recommendations from ID, General surgery and Nephrology. 08/12/2025: Patient was seen and examined at bedside. She complained of pain in right upper abdomen as well as left lower quadrant, along the drainage catheter insertion. No peritoneal signs present. She is currently on multimodal pain management. Today, we are advancing her to full liquid diet. Culture results have been negative so far. Incision site is clean, dry and intact. Will continue to follow recommendations from ID, General surgery and Nephrology. 08/13/2025: Patient was seen and examined at bedside. She complained of pain in right upper quadrant and left quadrant of abdomen along the line of drainage catheter placement. Comparatively, her pain is better than yesterday and patient states that she feels pain in between pain medication. No peritoneal signs are present. We will follow up with General surgery for CHRIS drain removal as there has been 0 to minimal drainage in the past few days. Patient is currently on full liquid diet. 08/14/2025 Patient is seen and examined at the bedside. She complains of intermittent pain in the left upper quadrant near the drainage catheter site which is well controlled with pain medications. No acute events last night. Vitals blood pressure in 90s/50s. Urine output 1.4 L, stool 1.2 L [ileostomy bag], 23 mL from left abdominal drain, 20 mL from right abdominal drain, 15 mL from RUQ drain over the last 24 hours. She denies fever, chills, chest pain/shortness of breath, tingling/numbness/pain in bilateral lower extremities. She is able to tolerate GI soft/bland diet without any nausea/vomiting. Labs WBC 4.1, hemoglobin stable at 8.9. We will continue parenteral nutrition. REVIEW OF SYSTEMS CONSTITUTIONAL: No fever, chills, or night sweats. NEUROLOGICAL: Denies headache, sensory and motor deficit. CARDIOVASCULAR: Denies any exertional angina, dyspnea on exertion, palpitations. PULMONARY: Denies any shortness of breath, cough, phlegm/sputum, hemoptysis, pleuritic chest pain. GASTROINTESTINAL: Patient complains of left sided abdominal pain. Denies nausea, vomiting. No peritoneal signs observed. GENITOURINARY: Denies frequency, urgency, nocturia, hematuria or incontinence. PHYSICAL EXAM GENERAL APPEARANCE: The patient is alert, awake and oriented and bedbound. NEUROLOGICAL: No sensory and motor deficits. CHEST: Normal chest expansion. LUNGS: Normal Vesicular breath sound. Absence of any rales, rhonchi or any wheezing. CARDIOVASCULAR: Regular. S1 and S2 normal. No appreciable rubs, murmurs or gallops. ABDOMEN: Abdomen is soft and slightly tender. Ileostomy creation. Cholecystostomy and left upper abdominal quadrant catheter in place. Absence of guarding, rigidity and rebound tenderness GENITOURINARY: No suprapubic tenderness. No costovertebral angle tenderness. Vital Signs (last 8hr) Date Time Temp Pulse Resp B/P (MAP) Pulse Ox O2 Delivery O2 Flow Rate FiO2 08/14/25 12:00 97.9 87 18 100/55 95 Room Air 08/14/25 08:06 97 Room Air* 0 21 08/14/25 08:00 98.6 88 18 99/70 97 Room Air LABS: Laboratory: Test 08/14/25 11:23 08/14/25 03:46 Range/Units Whole Blood Glucose 140 H 70-110 MG/DL White Blood Count 4.1 L 4.8-10.8 K/uL Red Blood Count 2.96 L 4.00-5.50 MIL/uL Hemoglobin 8.9 L 12.0-16.0 g/dL Hematocrit 27.4 L 36-48 % Mean Corpuscular Volume 92.6 79-99 fL Mean Corpuscular Hemoglobin 30.1 27.0-33.0 pg Mean Corpuscular Hemoglobin Concent 32.5 32.0-36.0 g/dL Red Cell Distribution Width 17.3 H 11.0-15.5 % Platelet Count 196 130-400 K/uL Mean Platelet Volume 10.0 7.5-10.5 fL Nucleated Red Blood Cells 0.0 0.0-0.19 % Sodium Level 139 136-145 mmol/L Potassium Level 4.2 3.5-5.1 mmol/L Chloride Level 107 101-111 mmol/L Carbon Dioxide Level 23 21-32 mmol/L Blood Urea Nitrogen 13 7-18 mg/dL Creatinine 0.6 0.5-1.0 mg/dL Glomerular Filtration Rate Calc 105 >90 mL/min Random Glucose 127 H 70-105 mg/dL Total Calcium 8.5 8.5-10.1 mg/dL Current Medications Medications (Trade) Dose Ordered Sig/Gregory Route PRN Reason Start Time Stop Time Status Last Admin Dose Admin Acetaminophen (TYLenol 500MG TAB) 500 mg Q6H6 PRN PO MILD PAIN (1-3) 07/27/25 16:30 08/07/25 12:15 DC Acetaminophen (TYLenol 500MG TAB) 500 mg Q6H6 PRN PO MILD PAIN (1-3) 08/07/25 10:00 08/07/25 10:03 DC Acetaminophen (TYLenol 650MG SUPPOSITORY) 650 mg Q6H PRN RC MILD PAIN (1-3) 07/21/25 00:00 07/27/25 16:22 DC Acetaminophen/ Hydrocodone Bitart (NORco 5/325MG) 1 tab Q4H PRN PO MODERATE PAIN (4-6) 07/31/25 16:30 08/05/25 16:29 DC 08/05/25 14:57 1 TAB Acetaminophen/ Hydrocodone Bitart (NORco 5/325MG) 1 tab Q4H PRN PO MODERATE PAIN (4-6) 08/07/25 12:30 08/12/25 12:29 DC 08/12/25 00:46 1 TAB Acetaminophen/ Hydrocodone Bitart (NORco 5/325MG) 1 tab Q4H PRN PO MODERATE PAIN (4-6) 08/12/25 16:30 08/17/25 16:29 08/14/25 11:33 1 TAB Albumin Human 50 ml @ 100 mls/hr Q12H IV 08/02/25 21:30 08/05/25 09:59 DC 08/05/25 10:12 100 MLS/HR Albumin Human 50 ml @ 0 mls/hr Q12H IV 08/02/25 18:30 08/02/25 20:04 DC Albumin Human 100 ml @ 0 mls/hr ONCE IV 07/25/25 12:00 07/26/25 11:59 DC 07/25/25 13:43 100 MLS/HR Clotrimazole (Lotrimin) 1 GM BID TP 07/29/25 21:00 08/28/25 20:59 08/13/25 10:28 1 GM Cyclobenzaprine HCl (Cyclobenzaprine HCl) 5 mg TID PO 07/25/25 14:00 07/26/25 14:00 DC 07/26/25 14:19 5 MG Fat Emulsion Intravenous 250 ml @ 42 mls/hr DAILY10 IV 08/13/25 10:00 09/12/25 09:59 08/14/25 09:25 42 MLS/HR Fentanyl (DURAgesic 12 MCG/HR PATCH) 12 mcg Q72H TD 08/09/25 13:00 08/09/25 15:19 DC Fentanyl (DURAgesic 12 MCG/HR PATCH) 12 mcg Q72H TD 08/09/25 15:30 08/11/25 10:32 DC 08/09/25 15:38 12 MCG Fentanyl (DURAgesic 25 MCG/HR PATCH) 25 mcg Q72H TD 07/31/25 14:30 07/31/25 14:44 DC Fentanyl (DURAgesic 25 MCG/HR PATCH) 25 mcg Q72H TD 08/12/25 15:30 08/12/25 16:00 DC Fentanyl (DURAgesic 25 MCG/HR PATCH) 25 mcg Q72H TD 08/12/25 21:00 08/17/25 20:59 08/12/25 22:03 25 MCG Fluconazole/ Sodium Chloride (DiFLUCan 200 MG/ NS 100 ML) 200 mg Q24H IVPB 07/21/25 21:00 08/20/25 20:59 08/13/25 19:54 200 MG Furosemide (LASix 20MG TAB) 20 mg DAILY PO 07/25/25 11:00 08/02/25 11:53 DC 08/02/25 09:42 20 MG Gabapentin (NEURontin 100 mg CAP) 100 mg TID PO 07/29/25 14:00 08/02/25 09:21 DC 08/01/25 20:14 100 MG Gabapentin (NEURontin 100 mg CAP) 100 mg TID PO 08/11/25 21:00 09/10/25 20:59 08/14/25 13:16 100 MG Home Med (Compound Po Narcotic) HS TD 08/12/25 21:00 09/11/25 20:59 Hydromorphone HCl (DiLAUDid 0.5MG INJ) 0.5 mg Q4H PRN IVP SEVERE PAIN (7-10) 07/24/25 10:00 07/29/25 09:59 DC 07/29/25 08:22 0.5 MG Hydromorphone HCl (DiLAUDid 0.5MG INJ) 0.5 mg Q4H PRN IVP SEVERE PAIN (7-10) 07/29/25 13:30 08/03/25 13:29 DC 08/03/25 13:09 0.5 MG Hydromorphone HCl (DiLAUDid 0.5MG INJ) 0.5 mg Q4H PRN IVP SEVERE PAIN (7-10) 08/03/25 18:00 08/07/25 10:03 DC 08/07/25 05:09 0.5 MG Hydromorphone HCl (DiLAUDid 0.5MG INJ) 0.5 mg Q4H PRN IVP SEVERE PAIN (7-10) 08/07/25 10:00 08/11/25 10:32 DC 08/10/25 20:27 0.5 MG Hydromorphone HCl (DiLAUDid 0.5MG INJ) 0.5 mg Q6H PRN IVP SEVERE PAIN (7-10) 08/11/25 11:00 08/16/25 10:59 08/13/25 20:21 0.5 MG Insulin Human Regular (humuLIN R 100 UNIT/ML 3ML) INSULIN SLIDING SCAL... ACHS SQ 07/21/25 07:30 08/20/25 07:29 08/12/25 22:36 3 UNIT Lactated Ringer's 1,000 ml @ 75 mls/hr [id number] IV 07/21/25 00:00 07/21/25 13:17 DC 07/21/25 02:57 75 MLS/HR Lactated Ringer's 1,000 ml @ 75 mls/hr [id number] IV 07/21/25 13:30 07/24/25 11:09 DC 07/24/25 09:27 75 MLS/HR Lactobacillus Rhamnosus ([facility] [employer]) 1 each DAILY20 PO 07/26/25 20:00 08/25/25 19:59 08/13/25 19:54 1 EACH Lidocaine (Lidoderm Patch 5%) 1 patch DAILY TP 07/28/25 09:00 08/27/25 08:59 08/12/25 08:35 1 PATCH Lidocaine HCl/Al Hydroxide/Mg Hydroxide/ Dicyclomine HCl 20ML OR AD ONCE PO 08/06/25 16:30 08/07/25 16:29 DC 08/06/25 16:45 20 ML Magnesium Sulfate 50 ml @ 0 mls/hr PROTOCOL PRN IV MAGNESIUM PROTOCOL 07/21/25 07:00 08/20/25 06:59 08/01/25 06:05 25 MLS/HR Methocarbamol (methoCARBamol) 500 mg BID PO 08/11/25 16:00 09/10/25 15:59 08/14/25 09:25 500 MG Metoclopramide HCl (regLAN 10MG IV) 5 mg BID IVP 08/04/25 21:00 09/03/25 20:59 08/14/25 09:25 5 MG Metronidazole/ Sodium Chloride (flaGYL) 500 mg Q8H IV 07/21/25 14:00 07/21/25 13:40 DC Morphine Sulfate (morPHINE 2MG SYG) 2 mg Q4H PRN IVP SEVERE PAIN (7-10) 07/21/25 00:30 07/21/25 13:18 DC 07/21/25 04:46 2 MG Morphine Sulfate (morPHINE 4MG SYG) 4 mg Q3H PRN IV MODERATE PAIN (4-6) 07/21/25 13:30 07/26/25 16:29 DC 07/26/25 10:51 4 MG Norepinephrine 250 ml @ 0 mls/hr PROTOCOL IV 07/20/25 23:30 08/03/25 08:27 DC 07/21/25 10:56 18.45 MLS/HR Ondansetron HCl (zoFRAN 4MG INJ) 4 mg Q4H PRN IVP NAUSEA 07/21/25 13:30 08/20/25 13:29 Ondansetron HCl (zoFRAN 4MG INJ) 4 mg Q6H PRN IV NAUSEA/VOMITING 07/21/25 00:00 07/21/25 13:18 DC Pantoprazole Sodium (PROTonix 40MG INJ) 40 mg BID IV 07/26/25 21:00 08/20/25 08:59 08/14/25 09:25 40 MG Pantoprazole Sodium (PROTonix 40MG INJ) 40 mg BID IVP 08/05/25 21:00 08/06/25 08:39 DC 08/05/25 20:25 40 MG Pantoprazole Sodium (PROTonix 40MG INJ) 40 mg DAILY IV 07/21/25 09:00 07/26/25 09:31 DC 07/26/25 08:55 40 MG Pharmacy Profile Note (Pharmacy Communication) 1 each ONCE MISC 07/21/25 15:30 07/21/25 15:16 DC Pharmacy Profile Note (Pharmacy Communication) 1 each ONCE MISC 08/06/25 16:00 08/07/25 07:07 DC Piperacillin Sod/ Tazobactam Sod 50 ml @ 200 mls/hr ONCE STAT IVPB 07/20/25 19:15 07/20/25 19:29 DC 07/20/25 20:32 200 MLS/HR Piperacillin Sod/ Tazobactam Sod (Zosyn 3.375gm+NS 50ml) 3.375 gm Q12H IV 07/21/25 00:00 07/31/25 00:00 DC 07/30/25 23:55 3.375 GM Piperacillin Sod/ Tazobactam Sod (Zosyn 3.375gm+NS 50ml) 3.375 gm Q8H IVPB 07/31/25 11:30 08/10/25 11:29 DC 08/10/25 04:05 3.375 GM Piperacillin Sod/ Tazobactam Sod (Zosyn 3.375gm+NS 50ml) 3.375 gm Q8H IVPB 08/10/25 13:00 08/20/25 12:59 08/14/25 13:16 3.375 GM Potassium Chloride 100 ml @ 100 mls/hr AD PRN IV POTASSIUM PROTOCOL 07/24/25 08:30 08/23/25 08:29 07/30/25 06:23 100 MLS/HR Potassium Chloride (K-Dur/Klor-Con 20meq) 20 meq AD PRN PO POTASSIUM PROTOCOL 07/24/25 08:30 08/23/25 08:29 07/27/25 20:33 20 MEQ Potassium Chloride (KCl 10% Elixir 20meq/15ml) 20 meq AD PRN PO POTASSIUM PROTOCOL 07/24/25 08:30 08/23/25 08:29 07/31/25 08:15 20 MEQ Psyllium Hydrophilic Mucilloid (Metamucil) 1 tbs BID PO 07/26/25 21:00 08/25/25 20:59 08/14/25 09:25 1 TBS Simethicone (Mylicon) 80 mg Q6H6 PO 07/27/25 12:00 08/26/25 11:59 08/14/25 11:32 80 MG Sodium Bicarbonate 150 meq/Sodium Chloride 1,150 ml @ 0 mls/hr Q0M IVP 07/21/25 14:00 07/26/25 09:31 DC Sodium Chloride (NS 50ml) 50 ml AD IV 07/31/25 11:30 07/31/25 11:12 DC Sodium Chloride (Normal Saline Flush) 10 ml Q8H IJ 08/09/25 11:00 09/08/25 10:59 08/12/25 18:36 10 ML Spironolactone (Aldactone 25mg) 25 mg BID PO 07/25/25 21:00 07/26/25 09:01 DC 07/26/25 08:56 25 MG Sucralfate (Carafate) 1 gm ACHS PO 07/29/25 21:00 08/28/25 20:59 08/14/25 11:32 1 GM Thiamine HCl (Vitamin B-1) 100 mg DAILY IVP 07/22/25 21:00 08/21/25 20:59 08/14/25 09:25 100 MG Thiamine HCl 100 mg/Sodium Chloride 50 ml @ 100 mls/hr Q24H IM 07/21/25 15:30 07/21/25 16:25 DC Vancomycin HCl (Vancomycin 1g/ 250ml Kit) 1 gm ONCE STAT IV 07/20/25 21:23 07/20/25 21:26 DC 07/20/25 22:06 1 GM Vasopressin 20 units/Sodium Chloride 100 ml @ 0 mls/hr PROTOCOL IV 07/21/25 00:30 08/03/25 08:27 DC 07/21/25 00:10 9 MLS/HR DIAGNOSTICS / RADIOLOGY: [ ] ASSESSMENT: Suspected Bowel Perforation/ Anastomotic Leak POA Acute cholecystitis, not POA s/p Cholecystotomy tube placement 08/02/2025 Bilious peritonitis s/p Diagnostic laparoscopy, abdominal washout, drain placement and diverting loop ileostomy creation Perisplenic and infrasplenic fluid collection with splenomegaly - suspected abscess s/p drainage with catheter placement Hyponatremia, resolved Bacterial peritonitis [ESBL Ecoli] Cholelithiasis Atrophic vaginitis Hyperkalemia, resolved Iron Deficiency anemia, POA Diabetes Mellitus Type 2 POA Acute Kidney Injury POA, resolved Septic Shock POA, resolved Cirrhosis of liver POA Esophageal Varices Recent Robotic takedown of splenic flexure mobilization, robotic takedown of colovesical fistula with sigmoid colectomy and end-to-end anastomosis surgery PLAN: Bilious peritonitis status post Diagnostic laparoscopy, abdominal washout, drain placement and diverting loop ileostomy creation -Continue close monitoring of the patient -continue physical therapy -No output in CHRIS drain. Follow up with surgery regarding CHRIS drain removal. -Continue Zosyn [day 25] and fluconazole [day 25]. -Probiotics and Fibers have been added for bloating. -Continue Protonix 40mg IV BID - Continue [id number] mcg Q72H , Norco5 mg q.4h p.r.n., Dilaudid 0.5 mg q.6 H p.r.n., for pain management - As per surgery, continue methocarbamol and gabapentin. Perisplenic and infrasplenic fluid collection with splenomegaly * CT scan showed perisplenic and infrasplenic fluid collection measuring 6.0 x 6.1 x 8.9 cm, splenomegaly, with spleen measuring 15.2 cm * IR drained the perisplenic and intra splenic fluid with placement of drainage catheter. * Cultures resulted in now growth * Continue Zosyn and fluconazole * Follow ID recommendations Bacterial Peritonitis * Post Surgical patient with Bacterial peritonitis positive for ESBL * Culture and sensitivity shows susceptibility to Zosyn, Gentamicin and Meropenem. * Likely secondary to post-operative intraabdominal infection with risk of ongoing contamination. * Currently patient is on Zosyn (Day 25) * For her continuos pain she is started on Fentanyl 25mcg. Cholelithiasis * Patient complained of upper abdominal pain * Ultrasound abdomen showed: Cirrhotic-appearing liver * Cholelithiasis and biliary sludge with gallbladder distension and Small volume ascites. * Hida scan shows acute cholecystitis. * Per Surgery: IR to be consulted for cholecystostomy tube placement. * IR did a Fluoroscopy and ultrasound-guided placement of cholecystotomy tube and cholecystogram on 08/02/2025. * IR evaluated patient in the cathead worker for cholecystostomy tube placement. Patient was found to have normally positioned tube with some stones for which the tube was flushed.. Small Bowel Obstruction (Resolved) * Abdominal Xray showed: Dilated small bowel loops are seen in mid abdomen * Pain management(avoid excess opioids if ileus is suspected) * Monitor for resolution vs progression of Ileus/obstruction. 07/29/25 Bowel Perforation, Dehiscence of the anastomosis - Patient had repair of colovesicular fistula with sigmoid colon resection and anastomosis on 07/09/25. - CT abdominal pelvis w/contrast done on 07/20/2025 showed Free air in the upper abdomen is seen, suggesting perforated bowel vs post surgical changes. No obstruction. -underwent Diagnostic laparoscopy, abdominal washout, drain placement and diverting loop ileostomy creation for biliary peritonitis Atrophic vaginitis * Her bleeding is resolved * We did a pelvic examination. * Ordered topical estrogen. * Urinalysis showed cloudy urine, protein 30, trace occult blood, RBC is 11 to 25, WBC is 26 to 50. hyperkalemia, resolved * Today his potassium is 4.2 * Will repeat her labs tomorrow. Iron Deficiency anemia * Hemoglobin today is 8.9. * Anemia panel has been ordered. Results showed Iron 24L, %sat 16.3 and TIBC 147L. 07/30/25 * Received 2 doses of Iron sucrose (venofer) so far Recommend trending Hgb and transfuse as needed to goal Hgb >7 Septic Shock -resolved -Her WBC is 5.6. 08/10/2025 -Her WBC during the presentation was 21.2 -lactic acid is 1.5 on 07/31/2025 -blood and urine culture results are negative Acute Kidney Injury, Resolved -Creatinine improved from 1.6-1.1-0.7-0.6-0.6-0.6-0.6-0.6-0.5-0.6-0 .6-0.5-0.5-0.3-0.6-0.4-0.6 08/09/2025 -Initial FeNA is 0.1 %, probably secondary to dehydration and NSAIDs overuse. -initial Urine sodium is < 13 and urine creatinine is 132.17. -Avoid nephrotoxic agents, eg. NSAIDS. -Weight patient daily. -Monitor intake and output. -Ordered urinalysis Cirrhosis of liver -Patient has a past history of cirrhosis of liver. - Liver functions are within normal limits. - Avoid NSAIDs and high dose acetaminophen. -Maintain appropriate volume of the patient. Supportive measures - Multimodal pain management -Maintain IV fluids, correct electrolytes -Serial abdominal exams -[employer] Worker on avoidance of NSAIDS and other related triggers. -Monitor Vitals and perform morning labs regularly Continue GI prophylaxis with Pantop Continue DVT prophylaxis with SCDs, we will avoid heparin due to history of allergies to porcine ATTESTATION BY PHYSICIAN I have seen and examined the patient. I reviewed the documentation, medical decision making, and treatment plan as noted by the resident physician above. I agree with the findings and plan of care. AYAKA BARR MD, PRIYANKA MD Aug 14, 2025 14:26
--- NOTE | 2025-08-14 18:46 | PN ---
INFECTIOUS DISEASE PROGRESS NOTE Date of Service: Aug 14, 2025 SUBJECTIVE: Patient was seen and examined at bedside in room 422. Patient is awake, alert and oriented x3. Patient is now on full liquid diet and denying nausea or vomiting at this time. No abdominal pain and abdomen is soft on palpation. Ileostomy having good output. Remains afebrile, temperature is 98.6. Patient is to continue on Zosyn and fluconazole. No other issues reported by nursing. PHYSICAL EXAM EYES: Anicteric. Pupils equal and reactive. HENT: No oral thrush seen, moist Oral mucosa. NECK: Supple, no JVD or thyromegaly. LUNGS: Good air entry. No rales, no rhonchi. CARDIOVASCULAR: S1, S2 regular. No murmur heard. ABDOMEN: Soft, non tender, bowel sounds present, no organomegaly. Left CHRIS drain. Left Perisplenic abscess percutaneous drainage catheter. Right ileostomy. Right cholecystostomy tube. CENTRAL NERVOUS SYSTEM: Awake, alert, oriented x 3. SKIN: No rashes, no swelling. LYMPHATICS: No peripheral lymphadenopathy. MUSCULOSKELETAL: No joint swelling, erythema or tenderness. EXTREMITIES: No cyanosis or clubbing. BACK: No deformity, no pressure ulcer. GENITOURINARY: No dysuria or hematuria. Vital Sign (Last 12 Hours) 08/14/25 08/14/25 08/14/25 08:00 08:06 12:00 Temp 98.6 97.9 Pulse 88 87 Resp 18 18 B/P (MAP) 99/70 100/55 Pulse Ox 97 97 95 O2 Delivery Room Air Room Air* Room Air O2 Flow Rate 0 FiO2 21 Intake & Output (last 24hrs) 08/13/25 08/13/25 08/14/25 14:59 22:59 06:59 Intake Total 480 ml 1650.0 ml 1160.0 ml Output Total 1323 ml 1335 ml Balance 480 ml 327.0 ml -175.0 ml LABS: Laboratory: Test 08/14/25 16:24 08/14/25 03:46 Range/Units Whole Blood Glucose 163 H 70-110 MG/DL White Blood Count 4.1 L 4.8-10.8 K/uL Red Blood Count 2.96 L 4.00-5.50 MIL/uL Hemoglobin 8.9 L 12.0-16.0 g/dL Hematocrit 27.4 L 36-48 % Mean Corpuscular Volume 92.6 79-99 fL Mean Corpuscular Hemoglobin 30.1 27.0-33.0 pg Mean Corpuscular Hemoglobin Concent 32.5 32.0-36.0 g/dL Red Cell Distribution Width 17.3 H 11.0-15.5 % Platelet Count 196 130-400 K/uL Mean Platelet Volume 10.0 7.5-10.5 fL Nucleated Red Blood Cells 0.0 0.0-0.19 % Sodium Level 139 136-145 mmol/L Potassium Level 4.2 3.5-5.1 mmol/L Chloride Level 107 101-111 mmol/L Carbon Dioxide Level 23 21-32 mmol/L Blood Urea Nitrogen 13 7-18 mg/dL Creatinine 0.6 0.5-1.0 mg/dL Glomerular Filtration Rate Calc 105 >90 mL/min Random Glucose 127 H 70-105 mg/dL Total Calcium 8.5 8.5-10.1 mg/dL ASSESSMENT: Acute cholecystitis, s/p cholecystostomy tube placement on 08/02/2025. Concern for cholecystostomy tube dislodgement status post cholecystogram with findings of multiple gallstones on 08/09/2025. Perisplenic abscess, s/p CT-guided drainage placement on 08/09/2025. Persistent abdominal pain, s/p EGD with findings acute gastritis. Septic shock, resolving. Generalized peritonitis with ESBL and E coli infection. Infection with multidrug resistant organism. Hypoalbuminemia, improving. Suspected bowel perforation, s/p diagnostic laparoscopy, abdominal washout, ileostomy creation and CHRIS drain placement on 07/21/2025. Diabetes mellitus. Recent colovesical fistula repair with sigmoid colon resection and anastomosis on 07/09/2025 PLAN: Continue Zosyn. Continue fluconazole. Continue pain management. Continue GI prophylaxis. Continue antidiabetics. Continue nutritional support, currently on full liquids and PPN. Continue drainage tube care. Continue physical therapy. This case was reviewed and discussed with my supervising physician Dr. Roger and the above assessment and plan was formulated and agreed upon. ATTESTATION BY PHYSICIAN I have seen and examined the patient. I reviewed the documentation, medical decision making, and treatment plan as noted by the mid-level provider above. I agree with the findings and plan of care. AMIE ROGER MD, MIRTA L FNP Aug 14, 2025 18:46
--- NOTE | 2025-08-14 18:50 | PN ---
GENERAL SURGERY PROGRESS NOTE Date/Time Patient Seen: [08/14/2025 2839 ] Interval History: [55-year-old female, postop diagnostic laparoscopy, abdominal washout, drain placement and diverting loop ileostomy creation by Dr. Gann on 07/21/2025 patient tolerating small amounts of GI soft without any complaints of nausea, vomiting or abdominal pain Patient has been ambulating Ostomy has been productive Culture results from left upper quadrant drain were positive for gram positive cocci, pending identification WBCs 4.1 H&H 8.9 and 27.4 Cholecystostomy drain with35 cc output Left upper quadrant percutaneous drain with25 cc output Left lower quadrant drain with minimal output Today patient states she feels a little depressed and sad due to her condition progressing very slowly Current Medications Medications (Trade) Dose Ordered Sig/Gregory Route Start Time Stop Time Status Last Admin Dose Admin Albumin Human 50 ml @ 100 mls/hr Q12H IV 08/02/25 21:30 08/05/25 09:59 DC 08/05/25 10:12 100 MLS/HR Albumin Human 50 ml @ 0 mls/hr Q12H IV 08/02/25 18:30 08/02/25 20:04 DC Albumin Human 100 ml @ 0 mls/hr ONCE IV 07/25/25 12:00 07/26/25 11:59 DC 07/25/25 13:43 100 MLS/HR Clotrimazole (Lotrimin) 1 GM BID TP 07/29/25 21:00 08/28/25 20:59 08/13/25 10:28 1 GM Cyclobenzaprine HCl (Cyclobenzaprine HCl) 5 mg TID PO 07/25/25 14:00 07/26/25 14:00 DC 07/26/25 14:19 5 MG Fat Emulsion Intravenous 250 ml @ 42 mls/hr DAILY10 IV 08/13/25 10:00 09/12/25 09:59 08/14/25 09:25 42 MLS/HR Fentanyl (DURAgesic 12 MCG/HR PATCH) 12 mcg Q72H TD 08/09/25 13:00 08/09/25 15:19 DC Fentanyl (DURAgesic 12 MCG/HR PATCH) 12 mcg Q72H TD 08/09/25 15:30 08/11/25 10:32 DC 08/09/25 15:38 12 MCG Fentanyl (DURAgesic 25 MCG/HR PATCH) 25 mcg Q72H TD 07/31/25 14:30 07/31/25 14:44 DC Fentanyl (DURAgesic 25 MCG/HR PATCH) 25 mcg Q72H TD 08/12/25 15:30 08/12/25 16:00 DC Fentanyl (DURAgesic 25 MCG/HR PATCH) 25 mcg Q72H TD 08/12/25 21:00 08/17/25 20:59 08/12/25 22:03 25 MCG Fluconazole/ Sodium Chloride (DiFLUCan 200 MG/ NS 100 ML) 200 mg Q24H IVPB 07/21/25 21:00 08/20/25 20:59 08/13/25 19:54 200 MG Furosemide (LASix 20MG TAB) 20 mg DAILY PO 07/25/25 11:00 08/02/25 11:53 DC 08/02/25 09:42 20 MG Gabapentin (NEURontin 100 mg CAP) 100 mg TID PO 07/29/25 14:00 08/02/25 09:21 DC 08/01/25 20:14 100 MG Gabapentin (NEURontin 100 mg CAP) 100 mg TID PO 08/11/25 21:00 09/10/25 20:59 08/14/25 13:16 100 MG Home Med (Compound Po Narcotic) HS TD 08/12/25 21:00 09/11/25 20:59 Insulin Human Regular (humuLIN R 100 UNIT/ML 3ML) INSULIN SLIDING SCAL... ACHS SQ 07/21/25 07:30 08/20/25 07:29 08/12/25 22:36 3 UNIT Lactated Ringer's 1,000 ml @ 75 mls/hr [id number] IV 07/21/25 00:00 07/21/25 13:17 DC 07/21/25 02:57 75 MLS/HR Lactated Ringer's 1,000 ml @ 75 mls/hr [id number] IV 07/21/25 13:30 07/24/25 11:09 DC 07/24/25 09:27 75 MLS/HR Lactobacillus Rhamnosus ([facility] [employer]) 1 each DAILY20 PO 07/26/25 20:00 08/25/25 19:59 08/13/25 19:54 1 EACH Lidocaine (Lidoderm Patch 5%) 1 patch DAILY TP 07/28/25 09:00 08/27/25 08:59 08/12/25 08:35 1 PATCH Lidocaine HCl/Al Hydroxide/Mg Hydroxide/ Dicyclomine HCl 20ML OR AD ONCE PO 08/06/25 16:30 08/07/25 16:29 DC 08/06/25 16:45 20 ML Methocarbamol (methoCARBamol) 500 mg BID PO 08/11/25 16:00 09/10/25 15:59 08/14/25 09:25 500 MG Metoclopramide HCl (regLAN 10MG IV) 5 mg BID IVP 08/04/25 21:00 09/03/25 20:59 08/14/25 09:25 5 MG Metronidazole/ Sodium Chloride (flaGYL) 500 mg Q8H IV 07/21/25 14:00 07/21/25 13:40 DC Norepinephrine 250 ml @ 0 mls/hr PROTOCOL IV 07/20/25 23:30 08/03/25 08:27 DC 07/21/25 10:56 18.45 MLS/HR Pantoprazole Sodium (PROTonix 40MG INJ) 40 mg BID IV 07/26/25 21:00 08/20/25 08:59 08/14/25 09:25 40 MG Pantoprazole Sodium (PROTonix 40MG INJ) 40 mg BID IVP 08/05/25 21:00 08/06/25 08:39 DC 08/05/25 20:25 40 MG Pantoprazole Sodium (PROTonix 40MG INJ) 40 mg DAILY IV 07/21/25 09:00 07/26/25 09:31 DC 07/26/25 08:55 40 MG Pharmacy Profile Note (Pharmacy Communication) 1 each ONCE MISC 07/21/25 15:30 07/21/25 15:16 DC Pharmacy Profile Note (Pharmacy Communication) 1 each ONCE MISC 08/06/25 16:00 08/07/25 07:07 DC Piperacillin Sod/ Tazobactam Sod 50 ml @ 200 mls/hr ONCE STAT IVPB 07/20/25 19:15 07/20/25 19:29 DC 07/20/25 20:32 200 MLS/HR Piperacillin Sod/ Tazobactam Sod (Zosyn 3.375gm+NS 50ml) 3.375 gm Q12H IV 07/21/25 00:00 07/31/25 00:00 DC 07/30/25 23:55 3.375 GM Piperacillin Sod/ Tazobactam Sod (Zosyn 3.375gm+NS 50ml) 3.375 gm Q8H IVPB 07/31/25 11:30 08/10/25 11:29 DC 08/10/25 04:05 3.375 GM Piperacillin Sod/ Tazobactam Sod (Zosyn 3.375gm+NS 50ml) 3.375 gm Q8H IVPB 08/10/25 13:00 08/20/25 12:59 08/14/25 13:16 3.375 GM Psyllium Hydrophilic Mucilloid (Metamucil) 1 tbs BID PO 07/26/25 21:00 08/25/25 20:59 08/14/25 09:25 1 TBS Simethicone (Mylicon) 80 mg Q6H6 PO 07/27/25 12:00 08/26/25 11:59 08/14/25 17:24 80 MG Sodium Bicarbonate 150 meq/Sodium Chloride 1,150 ml @ 0 mls/hr Q0M IVP 07/21/25 14:00 07/26/25 09:31 DC Sodium Chloride (NS 50ml) 50 ml AD IV 07/31/25 11:30 07/31/25 11:12 DC Sodium Chloride (Normal Saline Flush) 10 ml Q8H IJ 08/09/25 11:00 09/08/25 10:59 08/12/25 18:36 10 ML Spironolactone (Aldactone 25mg) 25 mg BID PO 07/25/25 21:00 07/26/25 09:01 DC 07/26/25 08:56 25 MG Sucralfate (Carafate) 1 gm ACHS PO 07/29/25 21:00 08/28/25 20:59 08/14/25 15:55 1 GM Thiamine HCl (Vitamin B-1) 100 mg DAILY IVP 07/22/25 21:00 08/21/25 20:59 08/14/25 09:25 100 MG Thiamine HCl 100 mg/Sodium Chloride 50 ml @ 100 mls/hr Q24H IM 07/21/25 15:30 07/21/25 16:25 DC Vancomycin HCl (Vancomycin 1g/ 250ml Kit) 1 gm ONCE STAT IV 07/20/25 21:23 07/20/25 21:26 DC 07/20/25 22:06 1 GM Vasopressin 20 units/Sodium Chloride 100 ml @ 0 mls/hr PROTOCOL IV 07/21/25 00:30 08/03/25 08:27 DC 07/21/25 00:10 9 MLS/HR Physical Examination: GENERAL: [No acute distress, female, comfortably resting in bed] HEAD: [Normocephalic.] EYES: [Nonicteric sclera.] ENT: [Hearing grossly intact.] NECK: [Supple.] LUNGS: [Clear breath sounds bilaterally.] HEART: [Normal rate and rhythm.] VASC: [Peripheral pulses +2 bilaterally.] ABD: [Bowel sounds normal, soft, tender left upper quadrant at percutaneous drain site, right upper quadrant cholecystostomy drain in place with bilious output, no guarding or rigidity, ostomy with healthy stoma and mild gas and watery output.] : [Not examined] EXT: [No edema.] SKIN: [No rashes or lesions noted.] NEURO: [Awake, alert, and oriented x3. No focal sensory or strength deficits noted.] Vital Signs (last 8hr) Date Time Temp Pulse Resp B/P (MAP) Pulse Ox O2 Delivery O2 Flow Rate FiO2 08/14/25 12:00 97.9 87 18 100/55 95 Room Air Laboratory: [ ] Hematology Labs: Test 08/14/25 03:46 Range/Units White Blood Count 4.1 L 4.8-10.8 K/uL Red Blood Count 2.96 L 4.00-5.50 MIL/uL Hemoglobin 8.9 L 12.0-16.0 g/dL Hematocrit 27.4 L 36-48 % Mean Corpuscular Volume 92.6 79-99 fL Mean Corpuscular Hemoglobin 30.1 27.0-33.0 pg Mean Corpuscular Hemoglobin Concent 32.5 32.0-36.0 g/dL Red Cell Distribution Width 17.3 H 11.0-15.5 % Platelet Count 196 130-400 K/uL Mean Platelet Volume 10.0 7.5-10.5 fL Nucleated Red Blood Cells 0.0 0.0-0.19 % Chemistry Labs: Test 08/14/25 16:24 08/14/25 03:46 Range/Units Whole Blood Glucose 163 H 70-110 MG/DL Sodium Level 139 136-145 mmol/L Potassium Level 4.2 3.5-5.1 mmol/L Chloride Level 107 101-111 mmol/L Carbon Dioxide Level 23 21-32 mmol/L Blood Urea Nitrogen 13 7-18 mg/dL Creatinine 0.6 0.5-1.0 mg/dL Glomerular Filtration Rate Calc 105 >90 mL/min Random Glucose 127 H 70-105 mg/dL Total Calcium 8.5 8.5-10.1 mg/dL Diagnostics / Radiology: [Copy/Paste Echos/Imaging Report here] Impression and Plan: [55-year-old female, postop diagnostic laparoscopy, abdominal washout, drain placement and diverting loop ileostomy creation by Dr. Gann on 07/21/2025 Patient is slowly doing better, tolerating GI soft diet Continue with IV fluids and IV antibiotics Patient encouraged to continue ambulating and doing IS exercises Surgical team will continue to follow Dr. Gann updated on patient's status Surgical case has been discussed with my supervising physician Plan of care was formulated and agreed upon Greater than 45 minutes spent examining patient, reviewing chart and working on documentation ATTESTATION BY PHYSICIAN I have seen and examined the patient. I reviewed the documentation, medical decision making, and treatment plan as noted by the mid-level provider above. I agree with the findings and plan of care. MD LEANA ISRAEL LETICIA A MARINE FITTER Aug 14, 2025 18:50
--- NOTE | 2025-08-14 19:34 | PN ---
FOLLOWUP PROGRESS NOTE SUBJECTIVE: This is a 55-year-old female who has had a prolonged hospital course. The patient with a history of diabetes mellitus and cirrhosis. She has a history of esophageal varices. She initially presented with abdominal pain. The patient underwent laparoscopy with a washout as well as CHRIS drain placement. She is status post cholecystectomy tube. The patient is being seen by surgical service. She has had acute on chronic renal failure in the hospital. Creatinine has been elevated and the patient is being seen as a followup visit for all of the above. REVIEW OF SYSTEMS: GENERAL: She is feeling somewhat improved. HEENT: No change in vision. No change in hearing. CARDIOVASCULAR: No current chest pain or palpitations. PULMONARY: There is no shortness of breath. GASTROINTESTINAL: She is tolerating some amount of a diet. MUSCULOSKELETAL: Complaints of weakness. PHYSICAL EXAMINATION: VITAL SIGNS: Blood pressure is 100/70, pulse 80, she is afebrile. GENERAL: She is chronically ill, much older than appearing female lying in bed on the medical floor. HEENT: Atraumatic. Pupils are equal, round, reactive to light. Oropharynx is without exudate. Nares clear. NECK: There is no JVP. There is no thyromegaly, no mass. CARDIOVASCULAR: Regular. There is no S3 or S4 or gallop. LUNGS: Coarse with equal thoracic movement. ABDOMEN: Soft, nondistended, and nontender. EXTREMITIES: Reveal no clubbing, no cyanosis. NEUROLOGICAL: She is awake. She is alert. LABORATORY DATA: Hemoglobin 8.9, hematocrit 27, white blood cell count is 4,000, BUN 13, creatinine 0.6. IMPRESSION: Acute on chronic renal failure. Cirrhosis. Hypertension. Perforated bowel. PLAN: The patient's renal function has remained stable. The patient's electrolytes have all been aggressively repleted. She is tolerating a diet. Workup is ongoing per surgical service and will follow closely. TID: [id number] RECEIPT: [id number]
[2025-08-14 20:00] VITALS: BP 106/65; PULSE 94; RESP 18; TEMP 98.1; O2SAT 96
[2025-08-14] MEDS: M.V.I. IV [ADULT] 10 ML in CLINIMIX-E4.25%AA/D5+LYT2000ML 2,000 ML IV ONE (21:37)
[2025-08-15] VITALS (7 sets, daily range): BP systolic 103–124; BP diastolic 58–68; PULSE 82–90; RESP 18; TEMP 97.6–98.2; O2SAT 96–99
[2025-08-15 04:39] LABS: IMMATURE GRANULOCYTE ABSOLUTE 0.07 K/uL (0-1); NUCLEATED RED BLOOD CELLS 0.0 % (0.0-0.19); PLATELET COUNT (AUTO) 192 K/uL (130-400); RED BLOOD CELL COUNT(AUTO) 2.92 MIL/uL (4.00-5.50); RED CELL DISTRIBUTION WIDTH 17.3 % (11.0-15.5); WHITE BLOOD COUNT (AUTO) 4.7 K/uL (4.8-10.8)
[2025-08-15 04:53] LABS: CREATININE 0.5 mg/dL (0.5-1.0); GLOMERULAR FILTR. RATE CALC 109.0 mL/min (>90); GLUCOSE,RANDOM 126.0 mg/dL (70-105); SODIUM SERUM 138.0 mmol/L (136-145); UREA NITROGEN, BLOOD 15.0 mg/dL (7-18)
--- NOTE | 2025-08-15 14:05 | PN ---
[facility] PROGRESS NOTE Date of Service: Aug 15, 2025 Time of Service: 13:46 SUBJECTIVE: Ms. Gray is a 55-year-old female that was seen and examined today on 07/20/2025. Patient reports that she came to the emergency department with a chief complaint of abdominal pain. Onset was 07/09/2025. Location is all four quadrants. Duration is constant. Character is described as pressure and " like I have a lot of gas trapped. " there was no alleviating factors. There was no aggravating factors. Patient reports associated abdominal swelling. 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 After the discharge she was taking pain medications and her condition started worsening after few days. She is in constant follow up with Dr Gann. Today in the emergency department WBCs 21.2, left shift neutrophils 85.5%, BUN 26, creatinine 3.1, GFR 17, lactic acid 8.0, no urinalysis has been collected or sent to lab, CT of abdomen and pelvis showed of free air in the abdomen which could be a suspected bowel perforation versus postsurgical changes, moderate ascites, fissure post surgical changes. Chest x-ray shows right pleural effusion. Additionally patient had a heart rate of 125, respirations 26, together with leukocytosis and lactic acidosis patient met clinical sepsis criteria additionally patient's blood pressure dropped to 85/50 mmHg requiring vasopressor support therefore meeting criteria for septic shock. Patient will be admitted to the intensive care unit. Emergency room physician spoke with patient's surgeon, Dr. Gann who requested patient be admitted under hospitalist service and she will follow this case along. 07/21/25 Patient was evaluated at the bedside. She was accompanied by her daughter. She is oriented to the time, place and person. She complained of abdominal pain in all the quadrants. She hasn't had bowel movement since Saturday and also is unable to pass flatus at this time. She has guarding, rigidity and tenderness all over the abdomen, showing the signs of peritonitis. She was seen by Dr Gann this m and is planned to be taken to OR this afternoon. Dueñas catheter is in place, as she wasn't able to pass the urine. There is no fever, chills and any other signs of infection. 07/22/25 Patient was evaluated at the bedside. She was accompanied by her daughter. She is oriented to the time, place and person. She underwent Diagnostic laparoscopy, abdominal washout, drain placement and diverting loop ileostomy creation, The procedure revealed Bilious peritonitis, 2 mm perforation of the colonic anastomosis. She is hemodynamically stable with Blood pressure of 110/73 and HR of 83. Currently she complains of abdominal pain which is getting better than yesterday, its 3-4/10 intensity. There is no rigidity. She is anxious about the outcomes and had discussion regarding her current clinical status and lab parameters. There is no fever, chills and any other signs of infection. 07/23/25 Patient was evaluated at the bedside. She was accompanied by her daughter. She is oriented to the time, place and person. She status post diagnostic laparoscopy, abdominal washout, drain placement and diverting loop ileostomy creation. Currently she complains of abdominal pain which is 5/10 intensity. She also complaints of mild lower back pain There is no fever, chills and any other signs of infection. She has CHRIS drain in-situ with clear fluid along with colostomy bag. She is currently tolerating clear liquid diet. 07/24/2025 Patient is seen and examined at the bedside. Vitals blood pressure ranging in 100s/50s, pulse rate 50s, SpO2 greater than 95% on room air. She mentions about experiencing pressure-like discomfort on the right side of the abdomen and pain when she tries to eat. No acute events last night. She denies fever, chills, nausea, vomiting, chest pain. CHRIS output approximately 100cc/hr, serosanguineous fluid. Ileostomy bag in place. She is tolerating clear liquid diet without any nausea/vomiting. Labs hemoglobin 9.8, BUN 38, creatinine improved from 1.6-1.1. 07/25/2025 Patient is seen and examined at the bedside. She complains of abdominal pain which is 7/10 in intensity. No acute events last night. She denies fever, chills, nausea, vomiting, chest pain. CHRIS output approximately 100cc/hr, serosanguineous fluid. Ileostomy bag in place. The patient has been started on spironolactone 25mg BID and Lasix 20 mg once daily. There is high output from CHRIS but it is clear serous, most likely related to her ascites from her history of liver cirrhosis. She is tolerating clear liquid diet without any nausea/vomiting. 07/26/2025 Patient is seen and examined at the bedside. She complains of abdominal pain which remains constant. No acute events last night. She denies fever, chills, nausea, vomiting, chest pain. Patient is status post with a CHRIS drain. The drain has been collecting the serosanguineous fluid secondary to ascites. She has been tolerating liquid diet and her diet has been advanced to soft diet. She still h as bloating for which probiotics and fibers has been recommended. Hemoglobin has gradually trended down to 9.2 and was given IV Venofer. Patient to get up and ambulate and work with physical therapy. 07/27/2025 Patient is seen and examined at the bedside. She complains of abdominal pain which is 6/10 in intensity. No acute events last night. She denies fever, chills, nausea, vomiting, chest pain. Patient is unable to tolerate the soft diet, hence she is currently receiving the liquid diets. The CHRIS drain output is still high and there was small amount of drainage observed in the right ileostomy. 07/28/2025 Patient is seen and examined at the bedside. She complains of abdominal pain which is 9/10 in intensity. No acute events last night. She denies fever, chills, nausea, vomiting, chest pain. Patient reported pain after eating but no nausea or vomiting. WBC is gradually trending up from 8.3-7.3-11.1-11.8. She had lidocaine patch placed this morning. She was started on simethicone 80 mg yesterday. Pertinent she is currently receiving Dilaudid 0.5 mg. Abdominal ultrasound has been ordered for further assessment. 07/29/2025 Patient is seen and examined at the bedside. She continues to complain of severe abdominal pain, rated 9/10 in intensity, unchanged from prior. She is currently receiving Dilaudid 0.5 mg for pain. She reports discomfort related to Dueñas catheterization. She denies fever, chest pain, nausea or vomiting at this time. No acute events were reported overnight. Blood pressure noted today is noted to be 98/54 mm Hg which is slightly low. Per surgery team, stoma is likely to be removed today. Hemoglobin has trended down from 9.7 g/dl to 9.0 g/dl. 07/30/2025 Patient is seen and examined at the bedside. She continues to complain of severe abdominal pain. Her abdominal distention has slightly improved. Dueñas's catheter was removed due to persistent discomfort. We will continue with scheduled removal of the ascites fluid and from CHRIS bulb. Ultrasound of abdomen was concerning for cholelithiasis with biliary sludge and gallbladder distention. HIDA scan was performed today. If consistent with cholecystitis patient will need cholecystostomy tube placement. 07/31/2025 Patient is seen and examined at the bedside. She was accompanied by her daughter. She continues to complain of severe abdominal pain. She is currently on Dilaudid 0.5mg Q4H PRN, which relieves the symptoms for 2-3 hours, after that she develops same level of pain and discomfort again. Currently awaiting the HIDA scan results. Her sodium level is 133 and albumin level is trending downwards from 2.3 to 2.1. Her Iron panel results showed: Iron 20L, TIBC 147L and %sat 16.3L. For her continuos pain she is started on Fentanyl 25mcg. CHRIS drain culture has beens sent. Based on the results of HIDA scan, CT chest will be planned. 08/01/2025: Patient is seen and examined this morning at bedside. She was accompanied by her daughter. The patient complains of severe abdominal pain. She is currently being managed with [place], and Dilaudid for breakthrough pain. HIDA scan results are back, and show acute cholecystitis. Surgery has been made aware of the results. IR has been consulted for cholecystostomy tube placement. The patient will be started on PPN, as recommended by general surgery. The patient follows with Dr. Sol outpatient for her liver cirrhosis. The patients daughter would like her vendor management specialist Dr. Sol to be involved in the patients care, and be updated with her status. 08/02/2025: Patient is seen and evaluated in the room 432. She was accompanied by her daughter. She complains of severe abdominal pain. She also complained of bleeding through her vagina, pink tinged urine. Her vitals are in the normal range. Her labs are in the normal range except for Hb is 8.6, Na is 135, K is 5.2, BUN is 4, Glucose is 150, CRP is 103.90. She went for placement of cholecystectomy tube by IR. We did a pelvic exam and ordered a vaginal estrogen cream and urinalysis. Also for her hyperkalemia we checked the potassium again and its 4.1. So we will repeat the labs tomorrow. We ordered a dose of albumin for her. 08/03/2025: Patient is seen and evaluated in the room 432. She has mild abdominal pain today. Her pain improved after the placement for cholecystotomy tube. Her vitals are in the normal range. Her labs are normal except for hemoglobin 8.2, glucose 156, CRP 89.8. Her aerobic and anaerobic culture of drain showed no growth. Gastroenterology saw the patient and they recommended 25 grams of 25% IV albumin q12H for 3 days. Her bleeding through the vagina decreased. The drainage through the left abdomen is 100ml, right abdomen is 20ml, left anterior abdomen 5ml. 08/04/2025: Patient is seen and evaluated in the room 432. She has abdominal pain today. Her vitals are in the normal range. Her labs are normal except for Hb is 8, CRP is 72.10, glucose is 130. Aerobic and anaerobic drain culture showed no growth. She is not able to tolerate her food. The drainage through the left abdomen is 100ml, right abdomen is 20ml, left anterior abdomen 5ml. Gastroenterology is planning to do EGD tomorrow. Surgery wanted to do a CT abdomen and pelvis with IV contrast. CT scan showed perisplenic and infrasplenic fluid collection measuring 6.0 x 6.1 x 8.9 cm, splenomegaly, with spleen measuring 15.2 cm, cholecystostomy tube in situ with decompressed gallbladder, abdominal drain in situ with tip in the pelvis. We ordered T.bilirubin and we will monitor the output from colostomy tube. We are also planning to add metoclopramide. 08/05/2025: Patient is seen and evaluated in the room 432. She has abdominal pain today. Her abdomen is tender to touch and warm. Her vital signs are in the normal range except for BP is 117/45. Her labs are normal except for Hb is 8.2, sodium is 135, creatinine is 0.3, CRP is 60.9 The drain output from left abdomen is 40ml, left anterior abdomen 0ml, right abdomen 0ml. Her saturation is 100% on 10L of O2. Her labs are in the normal range except for Hb is 8.2, HCT is 25.9, sodium is 135, glucose is 107, CRP is 60.90. She underwent endoscopy today and they did biopsy from 3 sites. GI said that they will consult radiology to check whether CHRIS drain and cholecystostomy tube are in place. General surgery will consult IR to evaluate perisplenic fluid collection for potential aspiration. 08/06/2025: Patient is seen and evaluated in the room 432. She has abdominal pain today. Her abdomen is tender to touch and warm. Her vital signs are in the normal range except for 97/63. Her labs are in the normal range except for Hb is 8.1, sodium is 135, blood glucose is 151, CRP 53.60. We are waiting for IR consult for evaluation and for potential aspiration of perisplenic fluid. The drain output from right abdomen is 20ml. 08/07/2025: Patient is seen and evaluated in the room 432. She has abdominal pain today. Her abdomen is tender to touch and warm. Her vital signs are in the normal range except for blood pressure which is 102/60. Her labs are in the normal range except for Hb is 8.5, WBC is 4.4, RDW is 17.3, sodium is 134, glucose is 147. We are waiting for IR consult for evaluation and for potential aspiration of perisplenic fluid. The drain output from right abdomen is 20ml. The SECURITY OPERATIONS ANALYST told me that she eats her food after taking her pain medications. Nurse is planning to start full liquid diet for lunch. 08/08/2025: She was evaluated at the bedside this morning. She is AAO x3. she complained of epigastric pain which gets worse with food . Moderate tenderness was appreciated on the epigastric region. Her blood pressure is 99/46, pulse 80. Remarkable lab is for WBC of 4.8, hemoglobin 9, CRP 43.90. She is scheduled with IR for perisplenic fluid aspiration and checking the position of cholecystostomy tube. She is on full liquid diet. She is on Zosyn, fluconazole. Surgery, GI, ID on the board. Rest of the plan as discussed below. 08/09/2025: Patient went to labor delivery specialist for PROCEDURE. As per nurse, her cholecystostomy tube was already correctly positioned but had some stones so tube was flushed. She complained of epigastric and pelvic pain. For pain control, fentanyl patch has been ordered. She is pending perisplenic fluid aspiration by IR. Her blood pressure is 98/58, pulse 90. She is currently NPO. She is on Zosyn, fluconazole. Surgery, GI, ID on the board. Rest of the plan as discussed below. 08/10/2025: Patient was seen and examined at bedside. She underwent CT GUIDED PERISPLENIC PIGTAIL DRAINAGE CATHETER PLACEMENT with Aspiration of perisplenic fluid. There has been 25 ml sanguinous drainage so far in the catheter. Her cholecystostomy tube has had 30 mL drainage in the past 24 hours. She is currently on clear liquid diet tolerating it well. She continues to complain pain in her abdomen without any peritoneal signs. She was started on fentanyl patch yesterday. Gram stain and body fluid culture were sent after drainage of perisplenic abscess which showed RARE GRAM POSITIVE COCCI after 1 day. Patient is currently on Zosyn. 08/11/2025: Patient was seen and examined. She continues to complain of abdominal pain. Her multimodal pain medications were adjusted with fentanyl increased to 25mcg and Dilaudid frequency changed from q.4h to q.6h. She is currently on clear liquid diet and complains of pain while eating. She continues on Zosyn and fluconazole. We are waiting for culture results after drainage of perisplenic abscess. Incision site is clean, dry and intact. Will continue to follow recommendations from ID, General surgery and Nephrology. 08/12/2025: Patient was seen and examined at bedside. She complained of pain in right upper abdomen as well as left lower quadrant, along the drainage catheter insertion. No peritoneal signs present. She is currently on multimodal pain management. Today, we are advancing her to full liquid diet. Culture results have been negative so far. Incision site is clean, dry and intact. Will continue to follow recommendations from ID, General surgery and Nephrology. 08/13/2025: Patient was seen and examined at bedside. She complained of pain in right upper quadrant and left quadrant of abdomen along the line of drainage catheter placement. Comparatively, her pain is better than yesterday and patient states that she feels pain in between pain medication. No peritoneal signs are present. We will follow up with General surgery for CHRIS drain removal as there has been 0 to minimal drainage in the past few days. Patient is currently on full liquid diet. 08/14/2025 Patient is seen and examined at the bedside. She complains of intermittent pain in the left upper quadrant near the drainage catheter site which is well controlled with pain medications. No acute events last night. Vitals blood pressure in 90s/50s. Urine output 1.4 L, stool 1.2 L [ileostomy bag], 23 mL from left abdominal drain, 20 mL from right abdominal drain, 15 mL from RUQ drain over the last 24 hours. She denies fever, chills, chest pain/shortness of breath, tingling/numbness/pain in bilateral lower extremities. She is able to tolerate GI soft/bland diet without any nausea/vomiting. Labs WBC 4.1, hemoglobin stable at 8.9. We will continue parenteral nutrition. 08/15/2025: Patient was seen and examined this morning at bedside. The patient reports continued abdominal pain, worse on her left upper quadrant. The patient states that when she takes her pain medication, the pain resolves. However, without the pain medication, the patient reports that the pain remains prominent. Duloxetine will be started for its dual benefit in managing the abdominal pain and addressing potential underlying mood symptoms that may be amplifying the patients pain perception. I educated the patient on importance of eating her GI soft diet. We will continue to follow ID and surgery recommendations. REVIEW OF SYSTEMS CONSTITUTIONAL: No fever, chills, or night sweats. NEUROLOGICAL: Denies headache, sensory and motor deficit. CARDIOVASCULAR: Denies any exertional angina, dyspnea on exertion, palpitations. PULMONARY: Denies any shortness of breath, cough, phlegm/sputum, hemoptysis, pleuritic chest pain. GASTROINTESTINAL: Patient complains of left sided abdominal pain. Denies nausea, vomiting. No peritoneal signs observed. GENITOURINARY: Denies frequency, urgency, nocturia, hematuria or incontinence. PHYSICAL EXAM GENERAL APPEARANCE: The patient is alert, awake and oriented and bedbound. NEUROLOGICAL: No sensory and motor deficits. CHEST: Normal chest expansion. LUNGS: Normal Vesicular breath sound. Absence of any rales, rhonchi or any wheezing. CARDIOVASCULAR: Regular. S1 and S2 normal. No appreciable rubs, murmurs or gallops. ABDOMEN: Abdomen is soft and slightly tender. Ileostomy creation. Cholecystostomy and left upper abdominal quadrant catheter in place. Absence of guarding, rigidity and rebound tenderness GENITOURINARY: No suprapubic tenderness. No costovertebral angle tenderness. Vital Signs (last 8hr) Date Time Temp Pulse Resp B/P (MAP) Pulse Ox O2 Delivery O2 Flow Rate FiO2 08/15/25 12:00 86 18 103/58 96 Room Air 08/15/25 08:55 99 Room Air* 0 21 08/15/25 08:00 97.9 88 18 124/68 94 Room Air LABS: Laboratory: Test 08/15/25 10:56 08/15/25 04:29 Range/Units Whole Blood Glucose 143 H 70-110 MG/DL White Blood Count 4.7 L 4.8-10.8 K/uL Red Blood Count 2.92 L 4.00-5.50 MIL/uL Hemoglobin 8.8 L 12.0-16.0 g/dL Hematocrit 27.1 L 36-48 % Mean Corpuscular Volume 92.8 79-99 fL Mean Corpuscular Hemoglobin 30.1 27.0-33.0 pg Mean Corpuscular Hemoglobin Concent 32.5 32.0-36.0 g/dL Red Cell Distribution Width 17.3 H 11.0-15.5 % Platelet Count 192 130-400 K/uL Mean Platelet Volume 9.8 7.5-10.5 fL Immature Granulocyte % (Auto) 1.5 H 0-1 % Neutrophils (%) (Auto) 67.1 40.0-77.0 % Lymphocytes (%) (Auto) 15.5 L 21.0-51.0 % Monocytes (%) (Auto) 9.8 3.0-13.0 % Eosinophils (%) (Auto) 5.5 0.0-8.0 % Basophils (%) (Auto) 0.6 0.0-5.0 % Neutrophils # (Auto) 3.2 1.8-7.7 K/uL Lymphocytes # (Auto) 0.7 L 1.0-4.8 K/uL Monocytes # (Auto) 0.5 0.1-1.0 K/uL Eosinophils # (Auto) 0.26 0.00-0.70 K/uL Basophils # (Auto) 0.03 0.00-0.20 K/uL Absolute Immature Granulocyte (auto 0.07 0-1 K/uL Nucleated Red Blood Cells 0.0 0.0-0.19 % Sodium Level 138 136-145 mmol/L Potassium Level 4.1 3.5-5.1 mmol/L Chloride Level 106 101-111 mmol/L Carbon Dioxide Level 22 21-32 mmol/L Blood Urea Nitrogen 15 7-18 mg/dL Creatinine 0.5 0.5-1.0 mg/dL Glomerular Filtration Rate Calc 109 >90 mL/min Random Glucose 126 H 70-105 mg/dL Total Calcium 8.4 L 8.5-10.1 mg/dL Current Medications Medications (Trade) Dose Ordered Sig/Gregory Route PRN Reason Start Time Stop Time Status Last Admin Dose Admin Acetaminophen (TYLenol 500MG TAB) 500 mg Q6H6 PRN PO MILD PAIN (1-3) 07/27/25 16:30 08/07/25 12:15 DC Acetaminophen (TYLenol 500MG TAB) 500 mg Q6H6 PRN PO MILD PAIN (1-3) 08/07/25 10:00 08/07/25 10:03 DC Acetaminophen (TYLenol 650MG SUPPOSITORY) 650 mg Q6H PRN RC MILD PAIN (1-3) 07/21/25 00:00 07/27/25 16:22 DC Acetaminophen/ Hydrocodone Bitart (NORco 5/325MG) 1 tab Q4H PRN PO MODERATE PAIN (4-6) 07/31/25 16:30 08/05/25 16:29 DC 08/05/25 14:57 1 TAB Acetaminophen/ Hydrocodone Bitart (NORco 5/325MG) 1 tab Q4H PRN PO MODERATE PAIN (4-6) 08/07/25 12:30 08/12/25 12:29 DC 08/12/25 00:46 1 TAB Acetaminophen/ Hydrocodone Bitart (NORco 5/325MG) 1 tab Q4H PRN PO MODERATE PAIN (4-6) 08/12/25 16:30 08/17/25 16:29 08/15/25 13:35 1 TAB Albumin Human 50 ml @ 100 mls/hr Q12H IV 08/02/25 21:30 08/05/25 09:59 DC 08/05/25 10:12 100 MLS/HR Albumin Human 50 ml @ 0 mls/hr Q12H IV 08/02/25 18:30 08/02/25 20:04 DC Albumin Human 100 ml @ 0 mls/hr ONCE IV 07/25/25 12:00 07/26/25 11:59 DC 07/25/25 13:43 100 MLS/HR Clotrimazole (Lotrimin) 1 GM BID TP 07/29/25 21:00 08/28/25 20:59 08/15/25 09:09 1 GM Cyclobenzaprine HCl (Cyclobenzaprine HCl) 5 mg TID PO 07/25/25 14:00 07/26/25 14:00 DC 07/26/25 14:19 5 MG Fat Emulsion Intravenous 250 ml @ 42 mls/hr DAILY10 IV 08/13/25 10:00 09/12/25 09:59 08/14/25 09:25 42 MLS/HR Fentanyl (DURAgesic 12 MCG/HR PATCH) 12 mcg Q72H TD 08/09/25 13:00 08/09/25 15:19 DC Fentanyl (DURAgesic 12 MCG/HR PATCH) 12 mcg Q72H TD 08/09/25 15:30 08/11/25 10:32 DC 08/09/25 15:38 12 MCG Fentanyl (DURAgesic 25 MCG/HR PATCH) 25 mcg Q72H TD 07/31/25 14:30 07/31/25 14:44 DC Fentanyl (DURAgesic 25 MCG/HR PATCH) 25 mcg Q72H TD 08/12/25 15:30 08/12/25 16:00 DC Fentanyl (DURAgesic 25 MCG/HR PATCH) 25 mcg Q72H TD 08/12/25 21:00 08/17/25 20:59 08/12/25 22:03 25 MCG Fluconazole/ Sodium Chloride (DiFLUCan 200 MG/ NS 100 ML) 200 mg Q24H IVPB 07/21/25 21:00 08/20/25 20:59 08/14/25 20:27 200 MG Furosemide (LASix 20MG TAB) 20 mg DAILY PO 07/25/25 11:00 08/02/25 11:53 DC 08/02/25 09:42 20 MG Gabapentin (NEURontin 100 mg CAP) 100 mg TID PO 07/29/25 14:00 08/02/25 09:21 DC 08/01/25 20:14 100 MG Gabapentin (NEURontin 100 mg CAP) 100 mg TID PO 08/11/25 21:00 09/10/25 20:59 08/15/25 13:35 100 MG Home Med (Compound Po Narcotic) HS TD 08/12/25 21:00 09/11/25 20:59 Hydromorphone HCl (DiLAUDid 0.5MG INJ) 0.5 mg Q4H PRN IVP SEVERE PAIN (7-10) 07/24/25 10:00 07/29/25 09:59 DC 07/29/25 08:22 0.5 MG Hydromorphone HCl (DiLAUDid 0.5MG INJ) 0.5 mg Q4H PRN IVP SEVERE PAIN (7-10) 07/29/25 13:30 08/03/25 13:29 DC 08/03/25 13:09 0.5 MG Hydromorphone HCl (DiLAUDid 0.5MG INJ) 0.5 mg Q4H PRN IVP SEVERE PAIN (7-10) 08/03/25 18:00 08/07/25 10:03 DC 08/07/25 05:09 0.5 MG Hydromorphone HCl (DiLAUDid 0.5MG INJ) 0.5 mg Q4H PRN IVP SEVERE PAIN (7-10) 08/07/25 10:00 08/11/25 10:32 DC 08/10/25 20:27 0.5 MG Hydromorphone HCl (DiLAUDid 0.5MG INJ) 0.5 mg Q6H PRN IVP SEVERE PAIN (7-10) 08/11/25 11:00 08/16/25 10:59 08/15/25 08:58 0.5 MG Insulin Human Regular (humuLIN R 100 UNIT/ML 3ML) INSULIN SLIDING SCAL... ACHS SQ 07/21/25 07:30 08/20/25 07:29 08/12/25 22:36 3 UNIT Lactated Ringer's 1,000 ml @ 75 mls/hr [id number] IV 07/21/25 00:00 07/21/25 13:17 DC 07/21/25 02:57 75 MLS/HR Lactated Ringer's 1,000 ml @ 75 mls/hr [id number] IV 07/21/25 13:30 07/24/25 11:09 DC 07/24/25 09:27 75 MLS/HR Lactobacillus Rhamnosus ([employer]lle [employer]) 1 each DAILY20 PO 07/26/25 20:00 08/25/25 19:59 08/14/25 20:26 1 EACH Lidocaine (Lidoderm Patch 5%) 1 patch DAILY TP 07/28/25 09:00 08/27/25 08:59 08/12/25 08:35 1 PATCH Lidocaine HCl/Al Hydroxide/Mg Hydroxide/ Dicyclomine HCl 20ML OR AD ONCE PO 08/06/25 16:30 08/07/25 16:29 DC 08/06/25 16:45 20 ML Magnesium Sulfate 50 ml @ 0 mls/hr PROTOCOL PRN IV MAGNESIUM PROTOCOL 07/21/25 07:00 08/20/25 06:59 08/01/25 06:05 25 MLS/HR Methocarbamol (methoCARBamol) 500 mg BID PO 08/11/25 16:00 09/10/25 15:59 08/15/25 08:47 500 MG Metoclopramide HCl (regLAN 10MG IV) 5 mg BID IVP 08/04/25 21:00 09/03/25 20:59 08/15/25 08:47 5 MG Metronidazole/ Sodium Chloride (flaGYL) 500 mg Q8H IV 07/21/25 14:00 07/21/25 13:40 DC Morphine Sulfate (morPHINE 2MG SYG) 2 mg Q4H PRN IVP SEVERE PAIN (7-10) 07/21/25 00:30 07/21/25 13:18 DC 07/21/25 04:46 2 MG Morphine Sulfate (morPHINE 4MG SYG) 4 mg Q3H PRN IV MODERATE PAIN (4-6) 07/21/25 13:30 07/26/25 16:29 DC 07/26/25 10:51 4 MG Norepinephrine 250 ml @ 0 mls/hr PROTOCOL IV 07/20/25 23:30 08/03/25 08:27 DC 07/21/25 10:56 18.45 MLS/HR Ondansetron HCl (zoFRAN 4MG INJ) 4 mg Q4H PRN IVP NAUSEA 07/21/25 13:30 08/20/25 13:29 Ondansetron HCl (zoFRAN 4MG INJ) 4 mg Q6H PRN IV NAUSEA/VOMITING 07/21/25 00:00 07/21/25 13:18 DC Pantoprazole Sodium (PROTonix 40MG INJ) 40 mg BID IV 07/26/25 21:00 08/20/25 08:59 08/15/25 08:47 40 MG Pantoprazole Sodium (PROTonix 40MG INJ) 40 mg BID IVP 08/05/25 21:00 08/06/25 08:39 DC 08/05/25 20:25 40 MG Pantoprazole Sodium (PROTonix 40MG INJ) 40 mg DAILY IV 07/21/25 09:00 07/26/25 09:31 DC 07/26/25 08:55 40 MG Pharmacy Profile Note (Pharmacy Communication) 1 each ONCE MISC 07/21/25 15:30 07/21/25 15:16 DC Pharmacy Profile Note (Pharmacy Communication) 1 each ONCE MISC 08/06/25 16:00 08/07/25 07:07 DC Piperacillin Sod/ Tazobactam Sod 50 ml @ 200 mls/hr ONCE STAT IVPB 07/20/25 19:15 07/20/25 19:29 DC 07/20/25 20:32 200 MLS/HR Piperacillin Sod/ Tazobactam Sod (Zosyn 3.375gm+NS 50ml) 3.375 gm Q12H IV 07/21/25 00:00 07/31/25 00:00 DC 07/30/25 23:55 3.375 GM Piperacillin Sod/ Tazobactam Sod (Zosyn 3.375gm+NS 50ml) 3.375 gm Q8H IVPB 07/31/25 11:30 08/10/25 11:29 DC 08/10/25 04:05 3.375 GM Piperacillin Sod/ Tazobactam Sod (Zosyn 3.375gm+NS 50ml) 3.375 gm Q8H IVPB 08/10/25 13:00 08/20/25 12:59 08/15/25 13:35 3.375 GM Potassium Chloride 100 ml @ 100 mls/hr AD PRN IV POTASSIUM PROTOCOL 07/24/25 08:30 08/23/25 08:29 07/30/25 06:23 100 MLS/HR Potassium Chloride (K-Dur/Klor-Con 20meq) 20 meq AD PRN PO POTASSIUM PROTOCOL 07/24/25 08:30 08/23/25 08:29 07/27/25 20:33 20 MEQ Potassium Chloride (KCl 10% Elixir 20meq/15ml) 20 meq AD PRN PO POTASSIUM PROTOCOL 07/24/25 08:30 08/23/25 08:29 07/31/25 08:15 20 MEQ Psyllium Hydrophilic Mucilloid (Metamucil) 1 tbs BID PO 07/26/25 21:00 08/25/25 20:59 08/15/25 08:47 1 TBS Simethicone (Mylicon) 80 mg Q6H6 PO 07/27/25 12:00 08/26/25 11:59 08/15/25 13:35 80 MG Sodium Bicarbonate 150 meq/Sodium Chloride 1,150 ml @ 0 mls/hr Q0M IVP 07/21/25 14:00 07/26/25 09:31 DC Sodium Chloride (NS 50ml) 50 ml AD IV 07/31/25 11:30 07/31/25 11:12 DC Sodium Chloride (Normal Saline Flush) 10 ml Q8H IJ 08/09/25 11:00 09/08/25 10:59 08/15/25 11:02 10 ML Spironolactone (Aldactone 25mg) 25 mg BID PO 07/25/25 21:00 07/26/25 09:01 DC 07/26/25 08:56 25 MG Sucralfate (Carafate) 1 gm ACHS PO 07/29/25 21:00 08/28/25 20:59 08/15/25 13:35 1 GM Thiamine HCl (Vitamin B-1) 100 mg DAILY IVP 07/22/25 21:00 08/21/25 20:59 08/15/25 08:47 100 MG Thiamine HCl 100 mg/Sodium Chloride 50 ml @ 100 mls/hr Q24H IM 07/21/25 15:30 07/21/25 16:25 DC Vancomycin HCl (Vancomycin 1g/ 250ml Kit) 1 gm ONCE STAT IV 07/20/25 21:23 07/20/25 21:26 DC 07/20/25 22:06 1 GM Vasopressin 20 units/Sodium Chloride 100 ml @ 0 mls/hr PROTOCOL IV 07/21/25 00:30 08/03/25 08:27 DC 07/21/25 00:10 9 MLS/HR DIAGNOSTICS / RADIOLOGY: [ ] ASSESSMENT: Suspected Bowel Perforation/ Anastomotic Leak POA Acute cholecystitis, not POA s/p Cholecystotomy tube placement 08/02/2025 Bilious peritonitis s/p Diagnostic laparoscopy, abdominal washout, drain placement and diverting loop ileostomy creation Perisplenic and infrasplenic fluid collection with splenomegaly - suspected abscess s/p drainage with catheter placement Hyponatremia, resolved Bacterial peritonitis [ESBL Ecoli] Cholelithiasis Atrophic vaginitis Hyperkalemia, resolved Iron Deficiency anemia, POA Diabetes Mellitus Type 2 POA Acute Kidney Injury POA, resolved Septic Shock POA, resolved Cirrhosis of liver POA Esophageal Varices Recent Robotic takedown of splenic flexure mobilization, robotic takedown of colovesical fistula with sigmoid colectomy and end-to-end anastomosis surgery PLAN: Bilious peritonitis status post Diagnostic laparoscopy, abdominal washout, drain placement and diverting loop ileostomy creation -Continue close monitoring of the patient -continue physical therapy -No output in CHRIS drain. Follow up with surgery regarding CHRIS drain removal. -Continue Zosyn [day 25] and fluconazole [day 25]. -Probiotics and Fibers have been added for bloating. -Continue Protonix 40mg IV BID - Continue [id number] mcg Q72H , Norco5 mg q.4h p.r.n., Dilaudid 0.5 mg q.6 H p.r.n., for pain management - As per surgery, continue methocarbamol and gabapentin. Perisplenic and infrasplenic fluid collection with splenomegaly * CT scan showed perisplenic and infrasplenic fluid collection measuring 6.0 x 6.1 x 8.9 cm, splenomegaly, with spleen measuring 15.2 cm * IR drained the perisplenic and intra splenic fluid with placement of drainage catheter. * Cultures resulted in now growth * Continue Zosyn and fluconazole * Follow ID recommendations Bacterial Peritonitis * Post Surgical patient with Bacterial peritonitis positive for ESBL * Culture and sensitivity shows susceptibility to Zosyn, Gentamicin and Meropenem. * Likely secondary to post-operative intraabdominal infection with risk of ongoing contamination. * Currently patient is on Zosyn (Day 25) * For her continuos pain she is started on Fentanyl 25mcg. Cholelithiasis * Patient complained of upper abdominal pain * Ultrasound abdomen showed: Cirrhotic-appearing liver * Cholelithiasis and biliary sludge with gallbladder distension and Small volume ascites. * Hida scan shows acute cholecystitis. * Per Surgery: IR to be consulted for cholecystostomy tube placement. * IR did a Fluoroscopy and ultrasound-guided placement of cholecystotomy tube and cholecystogram on 08/02/2025. * IR evaluated patient in the labor delivery specialist for cholecystostomy tube placement. Patient was found to have normally positioned tube with some stones for which the tube was flushed.. Small Bowel Obstruction (Resolved) * Abdominal Xray showed: Dilated small bowel loops are seen in mid abdomen * Pain management(avoid excess opioids if ileus is suspected) * Monitor for resolution vs progression of Ileus/obstruction. 07/29/25 Bowel Perforation, Dehiscence of the anastomosis - Patient had repair of colovesicular fistula with sigmoid colon resection and anastomosis on 07/09/25. - CT abdominal pelvis w/contrast done on 07/20/2025 showed Free air in the upper abdomen is seen, suggesting perforated bowel vs post surgical changes. No obstruction. -underwent Diagnostic laparoscopy, abdominal washout, drain placement and diverting loop ileostomy creation for biliary peritonitis Atrophic vaginitis * Her bleeding is resolved * We did a pelvic examination. * Ordered topical estrogen. * Urinalysis showed cloudy urine, protein 30, trace occult blood, RBC is 11 to 25, WBC is 26 to 50. hyperkalemia, resolved * Today his potassium is 4.2 * Will repeat her labs tomorrow. Iron Deficiency anemia * Hemoglobin today is 8.9. * Anemia panel has been ordered. Results showed Iron 24L, %sat 16.3 and TIBC 147L. 07/30/25 * Received 2 doses of Iron sucrose (venofer) so far Recommend trending Hgb and transfuse as needed to goal Hgb >7 Septic Shock -resolved -Her WBC is 5.6. 08/10/2025 -Her WBC during the presentation was 21.2 -lactic acid is 1.5 on 07/31/2025 -blood and urine culture results are negative Acute Kidney Injury, Resolved -Creatinine improved from 1.6-1.1-0. 7-0.6-0.6-0.6-0.6-0.6-0.5-0.6-0.6-0.5-0.5-0.3-0.6-0.4-0.6 08/09/2025 -Initial FeNA is 0.1 %, probably secondary to dehydration and NSAIDs overuse. -initial Urine sodium is < 13 and urine creatinine is 132.17. -Avoid nephrotoxic agents, eg. NSAIDS. -Weight patient daily. -Monitor intake and output. -Ordered urinalysis Cirrhosis of liver -Patient has a past history of cirrhosis of liver. - Liver functions are within normal limits. - Avoid NSAIDs and high dose acetaminophen. -Maintain appropriate volume of the patient. Supportive measures - Multimodal pain management - Duloxetine started. 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 -Monitor Vitals and perform morning labs regularly Continue GI prophylaxis with Pantop Continue DVT prophylaxis with SCDs, we will avoid heparin due to history of allergies to LISET Zee MD Aug 15, 2025 14:05
--- NOTE | 2025-08-15 16:15 | NUR ---
CHRIS DRAINAGE REMOVED CHRIS DRAINAGE REMOVED. SANGUINEOUS DRAINAGE NOTED AND PRESSURE WAS APPLIED TO THE AREA. SECURED WITH 4X4 GAUZE AND TEGADERM. CLEAN AND DRY. PT TOLERATED WELL.
--- NOTE | 2025-08-15 17:45 | PN ---
GENERAL SURGERY PROGRESS NOTE Date/Time Patient Seen: [ 08/15/2025 0669] Interval History: [55-year-old female, postop diagnostic laparoscopy, abdominal washout, drain placement and diverting loop ileostomy creation by Dr. Gann on 07/21/2025 Patient tolerating more of GI soft diet without any complaints of nausea, vomiting or abdominal pain Patient has been ambulating Ostomy has been productive WBCs 4.7 H&H 8.8 and 27.1 Cholecystostomy drain with 35 cc output Left upper quadrant percutaneous drain with 25 cc output No output from left lower quadrant CHRIS drain Hospitalist starting patient on duloxetine for pain management and possibly as an antidepressant Current Medications Medications (Trade) Dose Ordered Sig/Gregory Route Start Time Stop Time Status Last Admin Dose Admin Albumin Human 50 ml @ 100 mls/hr Q12H IV 08/02/25 21:30 08/05/25 09:59 DC 08/05/25 10:12 100 MLS/HR Albumin Human 50 ml @ 0 mls/hr Q12H IV 08/02/25 18:30 08/02/25 20:04 DC Albumin Human 100 ml @ 0 mls/hr ONCE IV 07/25/25 12:00 07/26/25 11:59 DC 07/25/25 13:43 100 MLS/HR Clotrimazole (Lotrimin) 1 GM BID TP 07/29/25 21:00 08/28/25 20:59 08/15/25 09:09 1 GM Cyclobenzaprine HCl (Cyclobenzaprine HCl) 5 mg TID PO 07/25/25 14:00 07/26/25 14:00 DC 07/26/25 14:19 5 MG Duloxetine HCl (CymbALTA 30 mg CAP) 30 mg BID PO 08/15/25 21:00 09/14/25 20:59 Fat Emulsion Intravenous 250 ml @ 42 mls/hr DAILY10 IV 08/13/25 10:00 09/12/25 09:59 08/15/25 10:00 42 MLS/HR Fentanyl (DURAgesic 12 MCG/HR PATCH) 12 mcg Q72H TD 08/09/25 13:00 08/09/25 15:19 DC Fentanyl (DURAgesic 12 MCG/HR PATCH) 12 mcg Q72H TD 08/09/25 15:30 08/11/25 10:32 DC 08/09/25 15:38 12 MCG Fentanyl (DURAgesic 25 MCG/HR PATCH) 25 mcg Q72H TD 07/31/25 14:30 07/31/25 14:44 DC Fentanyl (DURAgesic 25 MCG/HR PATCH) 25 mcg Q72H TD 08/12/25 15:30 08/12/25 16:00 DC Fentanyl (DURAgesic 25 MCG/HR PATCH) 25 mcg Q72H TD 08/12/25 21:00 08/17/25 20:59 08/12/25 22:03 25 MCG Fluconazole/ Sodium Chloride (DiFLUCan 200 MG/ NS 100 ML) 200 mg Q24H IVPB 07/21/25 21:00 08/20/25 20:59 08/14/25 20:27 200 MG Furosemide (LASix 20MG TAB) 20 mg DAILY PO 07/25/25 11:00 08/02/25 11:53 DC 08/02/25 09:42 20 MG Gabapentin (NEURontin 100 mg CAP) 100 mg TID PO 07/29/25 14:00 08/02/25 09:21 DC 08/01/25 20:14 100 MG Gabapentin (NEURontin 100 mg CAP) 100 mg TID PO 08/11/25 21:00 09/10/25 20:59 08/15/25 13:35 100 MG Home Med (Compound Po Narcotic) HS TD 08/12/25 21:00 09/11/25 20:59 Insulin Human Regular (humuLIN R 100 UNIT/ML 3ML) INSULIN SLIDING SCAL... ACHS SQ 07/21/25 07:30 08/20/25 07:29 08/12/25 22:36 3 UNIT Lactated Ringer's 1,000 ml @ 75 mls/hr [id number] IV 07/21/25 00:00 07/21/25 13:17 DC 07/21/25 02:57 75 MLS/HR Lactated Ringer's 1,000 ml @ 75 mls/hr [id number] IV 07/21/25 13:30 07/24/25 11:09 DC 07/24/25 09:27 75 MLS/HR Lactobacillus Rhamnosus ([facility]) 1 each DAILY20 PO 07/26/25 20:00 08/25/25 19:59 08/14/25 20:26 1 EACH Lidocaine (Lidoderm Patch 5%) 1 patch DAILY TP 07/28/25 09:00 08/27/25 08:59 08/12/25 08:35 1 PATCH Lidocaine HCl/Al Hydroxide/Mg Hydroxide/ Dicyclomine HCl 20ML OR AD ONCE PO 08/06/25 16:30 08/07/25 16:29 DC 08/06/25 16:45 20 ML Methocarbamol (methoCARBamol) 500 mg BID PO 08/11/25 16:00 09/10/25 15:59 08/15/25 08:47 500 MG Metoclopramide HCl (regLAN 10MG IV) 5 mg BID IVP 08/04/25 21:00 09/03/25 20:59 08/15/25 08:47 5 MG Metronidazole/ Sodium Chloride (flaGYL) 500 mg Q8H IV 07/21/25 14:00 07/21/25 13:40 DC Norepinephrine 250 ml @ 0 mls/hr PROTOCOL IV 07/20/25 23:30 08/03/25 08:27 DC 07/21/25 10:56 18.45 MLS/HR Pantoprazole Sodium (PROTonix 40MG INJ) 40 mg BID IV 07/26/25 21:00 08/20/25 08:59 08/15/25 08:47 40 MG Pantoprazole Sodium (PROTonix 40MG INJ) 40 mg BID IVP 08/05/25 21:00 08/06/25 08:39 DC 08/05/25 20:25 40 MG Pantoprazole Sodium (PROTonix 40MG INJ) 40 mg DAILY IV 07/21/25 09:00 07/26/25 09:31 DC 07/26/25 08:55 40 MG Pharmacy Profile Note (Pharmacy Communication) 1 each ONCE MISC 07/21/25 15:30 07/21/25 15:16 DC Pharmacy Profile Note (Pharmacy Communication) 1 each ONCE MISC 08/06/25 16:00 08/07/25 07:07 DC Piperacillin Sod/ Tazobactam Sod 50 ml @ 200 mls/hr ONCE STAT IVPB 07/20/25 19:15 07/20/25 19:29 DC 07/20/25 20:32 200 MLS/HR Piperacillin Sod/ Tazobactam Sod (Zosyn 3.375gm+NS 50ml) 3.375 gm Q12H IV 07/21/25 00:00 07/31/25 00:00 DC 07/30/25 23:55 3.375 GM Piperacillin Sod/ Tazobactam Sod (Zosyn 3.375gm+NS 50ml) 3.375 gm Q8H IVPB 07/31/25 11:30 08/10/25 11:29 DC 08/10/25 04:05 3.375 GM Piperacillin Sod/ Tazobactam Sod (Zosyn 3.375gm+NS 50ml) 3.375 gm Q8H IVPB 08/10/25 13:00 08/20/25 12:59 08/15/25 13:35 3.375 GM Psyllium Hydrophilic Mucilloid (Metamucil) 1 tbs BID PO 07/26/25 21:00 08/25/25 20:59 08/15/25 08:47 1 TBS Simethicone (Mylicon) 80 mg Q6H6 PO 07/27/25 12:00 08/26/25 11:59 08/15/25 13:35 80 MG Sodium Bicarbonate 150 meq/Sodium Chloride 1,150 ml @ 0 mls/hr Q0M IVP 07/21/25 14:00 07/26/25 09:31 DC Sodium Chloride (NS 50ml) 50 ml AD IV 07/31/25 11:30 07/31/25 11:12 DC Sodium Chloride (Normal Saline Flush) 10 ml Q8H IJ 08/09/25 11:00 09/08/25 10:59 08/15/25 11:02 10 ML Spironolactone (Aldactone 25mg) 25 mg BID PO 07/25/25 21:00 07/26/25 09:01 DC 07/26/25 08:56 25 MG Sucralfate (Carafate) 1 gm ACHS PO 07/29/25 21:00 08/28/25 20:59 08/15/25 16:03 1 GM Thiamine HCl (Vitamin B-1) 100 mg DAILY IVP 07/22/25 21:00 08/21/25 20:59 08/15/25 08:47 100 MG Thiamine HCl 100 mg/Sodium Chloride 50 ml @ 100 mls/hr Q24H IM 07/21/25 15:30 07/21/25 16:25 DC Vancomycin HCl (Vancomycin 1g/ 250ml Kit) 1 gm ONCE STAT IV 07/20/25 21:23 07/20/25 21:26 DC 07/20/25 22:06 1 GM Vasopressin 20 units/Sodium Chloride 100 ml @ 0 mls/hr PROTOCOL IV 07/21/25 00:30 08/03/25 08:27 DC 07/21/25 00:10 9 MLS/HR Physical Examination: GENERAL: [No acute distress, female, comfortably resting in bed, family at bedside] HEAD: [Normocephalic.] EYES: [Nonicteric sclera.] ENT: [Hearing grossly intact.] NECK: [Supple.] LUNGS: [Clear breath sounds bilaterally.] HEART: [Normal rate and rhythm.] VASC: [Peripheral pulses +2 bilaterally.] ABD: [Bowel sounds normal, soft, tender left upper quadrant at percutaneous drain site, right upper quadrant cholecystostomy drain in place with bilious output, no guarding or rigidity, ostomy with healthy stoma and mild gas and watery output.] : [Not examined] EXT: [No edema.] SKIN: [No rashes or lesions noted.] NEURO: [Awake, alert, and oriented x3. No focal sensory or strength deficits noted.] Vital Signs (last 8hr) Date Time Temp Pulse Resp B/P (MAP) Pulse Ox O2 Delivery O2 Flow Rate FiO2 08/15/25 12:00 86 18 103/58 96 Room Air Laboratory: [ ] Hematology Labs: Test 08/15/25 04:29 Range/Units White Blood Count 4.7 L 4.8-10.8 K/uL Red Blood Count 2.92 L 4.00-5.50 MIL/uL Hemoglobin 8.8 L 12.0-16.0 g/dL Hematocrit 27.1 L 36-48 % Mean Corpuscular Volume 92.8 79-99 fL Mean Corpuscular Hemoglobin 30.1 27.0-33.0 pg Mean Corpuscular Hemoglobin Concent 32.5 32.0-36.0 g/dL Red Cell Distribution Width 17.3 H 11.0-15.5 % Platelet Count 192 130-400 K/uL Mean Platelet Volume 9.8 7.5-10.5 fL Immature Granulocyte % (Auto) 1.5 H 0-1 % Neutrophils (%) (Auto) 67.1 40.0-77.0 % Lymphocytes (%) (Auto) 15.5 L 21.0-51.0 % Monocytes (%) (Auto) 9.8 3.0-13.0 % Eosinophils (%) (Auto) 5.5 0.0-8.0 % Basophils (%) (Auto) 0.6 0.0-5.0 % Neutrophils # (Auto) 3.2 1.8-7.7 K/uL Lymphocytes # (Auto) 0.7 L 1.0-4.8 K/uL Monocytes # (Auto) 0.5 0.1-1.0 K/uL Eosinophils # (Auto) 0.26 0.00-0.70 K/uL Basophils # (Auto) 0.03 0.00-0.20 K/uL Absolute Immature Granulocyte (auto 0.07 0-1 K/uL Nucleated Red Blood Cells 0.0 0.0-0.19 % Chemistry Labs: Test 08/15/25 16:44 08/15/25 04:29 Range/Units Whole Blood Glucose 146 H 70-110 MG/DL Sodium Level 138 136-145 mmol/L Potassium Level 4.1 3.5-5.1 mmol/L Chloride Level 106 101-111 mmol/L Carbon Dioxide Level 22 21-32 mmol/L Blood Urea Nitrogen 15 7-18 mg/dL Creatinine 0.5 0.5-1.0 mg/dL Glomerular Filtration Rate Calc 109 >90 mL/min Random Glucose 126 H 70-105 mg/dL Total Calcium 8.4 L 8.5-10.1 mg/dL Diagnostics / Radiology: [Copy/Paste Echos/Imaging Report here] Impression and Plan: [55-year-old female, postop diagnostic laparoscopy, abdominal washout, drain placement and diverting loop ileostomy creation by Dr. Gann on 07/21/2025 Patient is slowly doing better, tolerating more GI soft diet We will check H pylori Pain remove left lower quadrant CHRIS drain Keep right upper quadrant cholecystostomy tube and left upper quadrant percutaneous drain in place for now We will add Toradol 15 mg IV q.8 hours to start weaning patient off of Dilaudid Continue with TPN Continue with IV fluids and IV antibiotics Patient encouraged to continue ambulating and doing IS exercises Surgical team will continue to follow Dr. Gann updated on patient's status Surgical case has been discussed with my supervising physician Plan of care was formulated and agreed upon Greater than 45 minutes spent examining patient, reviewing chart and working on documentation ATTESTATION BY PHYSICIAN I have seen and examined the patient. I reviewed the documentation, medical decision making, and treatment plan as noted by the mid-level provider above. I agree with the findings and plan of care. MD LEANA ISRAEL LETICIA A [facility] Aug 15, 2025 17:45
[2025-08-15] MEDS: M.V.I. IV [ADULT] 10 ML in CLINIMIX-E4.25%AA/D5+LYT2000ML 2,000 ML IV ONE (23:25)
[2025-08-16] VITALS (7 sets, daily range): BP systolic 111–125; BP diastolic 59–73; PULSE 77–97; RESP 16–18; TEMP 97.9–98.6; O2SAT 95
--- NOTE | 2025-08-16 01:55 | PN ---
FOLLOWUP PROGRESS NOTE SUBJECTIVE: A 55-year-old female who has had a prolonged hospital course. The patient has a history of diabetes mellitus as well as cirrhosis. She initially presented to the hospital with increasing abdominal pain. The patient is status post cholecystectomy tube. The patient has been transferred out to the medical floor. She has been started on a diet. She has had [id number] renal failure in the hospital. Creatinine has been elevated and she is being seen for all the above. REVIEW OF SYSTEMS: GENERAL: She is feeling somewhat improved. HEENT: No change in vision. No change in hearing. CARDIOVASCULAR: There are no current chest pains or palpitations. PULMONARY: No shortness of breath. GASTROINTESTINAL: She is tolerating a diet. MUSCULOSKELETAL: Complaint of weakness. PHYSICAL EXAMINATION: VITAL SIGNS: Blood pressure is , pulse 80. He is afebrile. GENERAL: Chronically ill female, much older than appearing. HEENT: Head is atraumatic. Pupils are equal, round, and reactive to light. Oropharynx without exudate. Nares are clear. NECK: There is no JVP. There is no thyromegaly or mass. CARDIOVASCULAR: Regular. There is no S3 or S4 or gallop. LUNGS: Coarse with equal thoracic movement. ABDOMEN: Soft, nondistended, and nontender. EXTREMITIES: There is no clubbing or cyanosis. NEUROLOGICAL: She is awake, alert. LABORATORY DATA: Hemoglobin , white blood cell count 4000, platelet count is 192. Sodium 138, BUN 15, creatinine 0.5. IMPRESSION: * Acute renal failure. * Cirrhosis. * Cholecystitis, status post cholecystectomy tube. * Electrolyte abnormalities. PLAN: The patient's creatinine has remained fairly stable. The patient's electrolytes have all been aggressively repleted. The patient's postop care is per Surgical service. We will continue to follow closely. All labs can be repeated in the morning. The patient with multiple questions, all of which were all answered. TID: [id number] RECEIPT: [id number]
[2025-08-16 04:41] LABS: IMMATURE GRANULOCYTE ABSOLUTE 0.08 K/uL (0-1); NUCLEATED RED BLOOD CELLS 0.0 % (0.0-0.19); PLATELET COUNT (AUTO) 218 K/uL (130-400); RED BLOOD CELL COUNT(AUTO) 3.04 MIL/uL (4.00-5.50); RED CELL DISTRIBUTION WIDTH 17.5 % (11.0-15.5); WHITE BLOOD COUNT (AUTO) 6.0 K/uL (4.8-10.8)
[2025-08-16 04:58] LABS: ASPARTATE AMINOTRANSFERASE 38.0 U/L (10-37); CREATININE 0.6 mg/dL (0.5-1.0); GLOMERULAR FILTR. RATE CALC 105.0 mL/min (>90); GLUCOSE,RANDOM 134.0 mg/dL (70-105); SODIUM SERUM 133.0 mmol/L (136-145); TOTAL PROTEIN, SERUM 7.0 g/dL (6.0-8.3); UREA NITROGEN, BLOOD 15.0 mg/dL (7-18)
--- NOTE | 2025-08-16 13:26 | PN ---
Patient is status post laparoscopic washout and loop ileostomy. Yesterday patient was placed in a supine position because of leaking of the ostomy and since then has been very nauseous. Patient is known to have severe reflux and esophagitis. Reports pain is much better control except that she has not been able to eat too much today because of the nausea. CHRIS drain was removed yesterday. Left upper quadrant drain has had no output. Right upper quadrant drain has had about 20 cc out. Incisions are clean dry and intact. Ostomy is pink patent and productive Assessment and plan we will cut down the TPN to 40 instead of 80 mL to try to see if patient has starts getting more hungry. We will schedule the soft from q.6 to try to control her nausea. Continue with the pain medication and anti- reflux medication as scheduled. We will try to get patient ready for discharge by the end of the week. Vitals/Labs Vital Signs Date Time Temp Pulse Resp B/P (MAP) Pulse Ox O2 Delivery O2 Flow Rate FiO2 08/16/25 07:42 98.2 77 16 111/59 95 Room Air 21 08/15/25 20:00 0 Laboratory Tests 08/16/25 04:10 Medications Current Medications Sodium Chloride 1,000 ml @ 0 mls/hr ONCE ONCE IV; Start 07/20/25 at 18:30; Stop 07/20/25 at 18:31; Status DC Piperacillin Sod/ Tazobactam Sod 50 ml @ 200 mls/hr ONCE STAT IVPB Last administered on 07/20/25at 20:32; Start 07/20/25 at 19:15; Stop 07/20/25 at 19:29; Status DC Sodium Chloride 2,109 ml @ 703 mls/hr ONCE ONCE IV Last administered on 07/20/25at 20:28; Start 07/20/25 at 19:30; Stop 07/20/25 at 22:29; Status DC Iohexol 75 ml STK-MED ONCE IV; Start 07/20/25 at 20:31; Stop 07/20/25 at 20:31; Status DC Vancomycin HCl 1 gm ONCE STAT IV Last administered on 07/20/25at 22:06; Start 07/20/25 at 21:23; Stop 07/20/25 at 21:26; Status DC Morphine Sulfate 4 mg ONCE ONCE IVP Last administered on 07/20/25at 23:15; Start 07/20/25 at 23:30; Stop 07/20/25 at 23:31; Status DC Ondansetron HCl 4 mg ONCE ONCE IVP Last administered on 07/20/25at 23:14; Start 07/20/25 at 23:30; Stop 07/20/25 at 23:31; Status DC Norepinephrine 250 ml @ 0 mls/hr PROTOCOL IV Last administered on 07/21/25at 10:56; Start 07/20/25 at 23:30; Stop 08/03/25 at 08:27; Status DC Piperacillin Sod/ Tazobactam Sod 3.375 gm Q12H IV Last administered on 07/30/25at 23:55; Start 07/21/25 at 00:00; Stop 07/31/25 at 00:00; Status DC Acetaminophen 650 mg Q6H PRN RC; Start 07/21/25 at 00:00; Stop 07/27/25 at 16:22; Status DC Pantoprazole Sodium 40 mg DAILY IV Last administered on 07/26/25at 08:55; Start 07/21/25 at 09:00; Stop 07/26/25 at 09:31; Status DC Ondansetron HCl 4 mg Q6H PRN IV; Start 07/21/25 at 00:00; Stop 07/21/25 at 13:18; Status DC Morphine Sulfate 2 mg Q4H PRN IVP Last administered on 07/21/25at 04:46; Start 07/21/25 at 00:30; Stop 07/21/25 at 13:18; Status DC Lactated Ringer's 1,000 ml @ 75 mls/hr [id number] IV Last administered on 07/21/25at 02:57; Start 07/21/25 at 00:00; Stop 07/21/25 at 13:17; Status DC Insulin Human Regular INSULIN SLIDING SCAL... ACHS SQ Last administered on 08/12/25at 22:36; Start 07/21/25 at 07:30; Stop 08/20/25 at 07:29 Vasopressin 20 units/Sodium Chloride 100 ml @ 0 mls/hr PROTOCOL IV Last administered on 07/21/25at 00:10; Start 07/21/25 at 00:30; Stop 08/03/25 at 08:27; Status DC Vasopressin 20 units STK-MED ONCE .ROUTE; Start 07/21/25 at 00:10; Stop 07/21/25 at 00:11; Status DC Magnesium Sulfate 50 ml @ 0 mls/hr PROTOCOL PRN IV Last administered on 08/01/25at 06:05; Start 07/21/25 at 07:00; Stop 08/20/25 at 06:59 Acetaminophen 100 ml @ As Directed STK-MED ONCE .ROUTE; Start 07/21/25 at 09:42; Stop 07/21/25 at 09:42; Status DC Famotidine 20 mg STK-MED ONCE IV; Start 07/21/25 at 09:42; Stop 07/21/25 at 09:42; Status DC Albumin Human 500 ml @ As Directed STK-MED ONCE IV; Start 07/21/25 at 09:45; Stop 07/21/25 at 09:45; Status DC Phenylephrine HCl 10 mg STK-MED ONCE IV; Start 07/21/25 at 09:48; Stop 07/21/25 at 09:48; Status DC Dexamethasone Sodium Phosphate 10 mg STK-MED ONCE .ROUTE; Start 07/21/25 at 09:52; Stop 07/21/25 at 09:52; Status DC Ondansetron HCl 4 mg STK-MED ONCE .ROUTE; Start 07/21/25 at 09:52; Stop 07/21/25 at 09:52; Status DC Lidocaine HCl 100 mg STK-MED ONCE .ROUTE; Start 07/21/25 at 09:52; Stop 07/21/25 at 09:52; Status DC Succinylcholine Chloride 200 mg STK-MED ONCE .ROUTE; Start 07/21/25 at 09:53; Stop 07/21/25 at 09:53; Status DC Glycopyrrolate 1 mg STK-MED ONCE .ROUTE; Start 07/21/25 at 09:53; Stop 07/21/25 at 09:53; Status DC Fentanyl Citrate 100 mcg STK-MED ONCE .ROUTE; Start 07/21/25 at 09:54; Stop 07/21/25 at 09:54; Status DC Propofol 200 mg STK-MED ONCE IV; Start 07/21/25 at 09:54; Stop 07/21/25 at 09:54; Status DC Neostigmine Methylsulfate 10 mg STK-MED ONCE IV; Start 07/21/25 at 09:54; Stop 07/21/25 at 09:54; Status DC Rocuronium Milner 50 mg STK-MED ONCE .ROUTE; Start 07/21/25 at 09:54; Stop 07/21/25 at 09:54; Status DC Ketamine HCl 50 mg STK-MED ONCE .ROUTE; Start 07/21/25 at 09:55; Stop 07/21/25 at 09:56; Status DC Epinephrine HCl 1 mg STK-MED ONCE .ROUTE; Start 07/21/25 at 10:03; Stop 07/21/25 at 10:03; Status DC Midazolam HCl 2 mg STK-MED ONCE .ROUTE; Start 07/21/25 at 10:05; Stop 07/21/25 at 10:05; Status DC Indocyanine Green 25 mg STK-MED ONCE IJ; Start 07/21/25 at 10:49; Stop 07/21/25 at 10:49; Status DC Ephedrine Sulfate 50 mg STK-MED ONCE .ROUTE; Start 07/21/25 at 11:17; Stop 07/21/25 at 11:17; Status DC Bupivacaine HCl 5 mg STK-MED ONCE .ROUTE Last administered on 07/21/25at 12:14; Start 07/21/25 at 11:49; Stop 07/21/25 at 11:49; Status DC Sodium Bicarbonate 200 ml @ As Directed STK-MED ONCE .ROUTE; Start 07/21/25 at 12:19; Stop 07/21/25 at 12:19; Status DC Fentanyl Citrate 100 mcg STK-MED ONCE .ROUTE; Start 07/21/25 at 12:23; Stop 07/21/25 at 12:23; Status DC Phytonadione 10 mg STK-MED ONCE .ROUTE; Start 07/21/25 at 13:05; Stop 07/21/25 at 13:05; Status DC Lactated Ringer's 1,000 ml @ 75 mls/hr [id number] IV Last administered on 07/24/25at 09:27; Start 07/21/25 at 13:30; Stop 07/24/25 at 11:09; Status DC Morphine Sulfate 4 mg Q3H PRN IV Last administered on 07/26/25at 10:51; Start 07/21/25 at 13:30; Stop 07/26/25 at 16:29; Status DC Ondansetron HCl 4 mg Q4H PRN IVP Last administered on 08/16/25at 10:23; Start 07/21/25 at 13:30; Stop 08/20/25 at 13:29 Fentanyl Citrate 100 mcg STK-MED ONCE .ROUTE; Start 07/21/25 at 13:26; Stop 07/21/25 at 13:26; Status DC Sodium Bicarbonate 150 meq/Sodium Chloride 1,150 ml @ 0 mls/hr Q0M IVP; Start 07/21/25 at 14:00; Stop 07/26/25 at 09:31; Status DC Sodium Bicarbonate 100 meq ONCE ONCE IV; Start 07/21/25 at 14:00; Stop 07/21/25 at 14:23; Status DC Metronidazole/ Sodium Chloride 500 mg Q8H IV; Start 07/21/25 at 14:00; Stop 07/21/25 at 13:40; Status DC Fluconazole/ Sodium Chloride 200 mg Q24H IVPB Last administered on 08/15/25at 23:11; Start 07/21/25 at 21:00; Stop 08/20/25 at 20:59 Pharmacy Profile Note 1 each ONCE MISC; Start 07/21/25 at 15:30; Stop 07/21/25 at 15:16; Status DC Thiamine HCl 100 mg/Sodium Chloride 50 ml @ 100 mls/hr Q24H IM; Start 07/21/25 at 15:30; Stop 07/21/25 at 16:25; Status DC Sodium Bicarbonate 100 meq ONCE ONCE IV Last administered on 07/21/25at 16:42; Start 07/21/25 at 16:30; Stop 07/21/25 at 16:31; Status DC Thiamine HCl 100 mg DAILY IVP Last administered on 08/16/25at 10:00; Start 07/22/25 at 21:00; Stop 08/21/25 at 20:59 Diatrizoate Meglum/ Diatrizoate Sod 30 ml STK-MED ONCE .ROUTE; Start 07/23/25 at 15:13; Stop 07/23/25 at 15:13; Status DC Potassium Chloride 100 ml @ 100 mls/hr AD PRN IV Last administered on 07/30/25at 06:23; Start 07/24/25 at 08:30; Stop 08/23/25 at 08:29 Potassium Chloride 20 meq AD PRN PO Last administered on 07/31/25at 08:15; Start 07/24/25 at 08:30; Stop 08/23/25 at 08:29 Potassium Chloride 20 meq AD PRN PO Last administered on 07/27/25at 20:33; Start 07/24/25 at 08:30; Stop 08/23/25 at 08:29 Hydromorphone HCl 0.5 mg Q4H PRN IVP Last administered on 07/29/25at 08:22; Start 07/24/25 at 10:00; Stop 07/29/25 at 09:59; Status DC Spironolactone 25 mg BID PO Last administered on 07/26/25at 08:56; Start 07/25/25 at 21:00; Stop 07/26/25 at 09:01; Status DC Albumin Human 100 ml @ 0 mls/hr ONCE ONCE IV Last administered on 07/25/25at 17:05; Start 07/25/25 at 10:30; Stop 07/25/25 at 10:31; Status DC Albumin Human 100 ml @ 0 mls/hr ONCE IV Last administered on 07/25/25at 13:43; Start 07/25/25 at 12:00; Stop 07/26/25 at 11:59; Status DC Cyclobenzaprine HCl 5 mg TID PO Last administered on 07/26/25at 14:19; Start 07/25/25 at 14:00; Stop 07/26/25 at 14:00; Status DC Furosemide 20 mg DAILY PO Last administered on 08/02/25at 09:42; Start 07/25/25 at 11:00; Stop 08/02/25 at 11:53; Status DC Pantoprazole Sodium 40 mg BID IV Last administered on 08/16/25at 09:58; Start 07/26/25 at 21:00; Stop 08/20/25 at 08:59 Psyllium Hydrophilic Mucilloid 1 tbs BID PO Last administered on 08/16/25at 09:58; Start 07/26/25 at 21:00; Stop 08/25/25 at 20:59 Lactobacillus Rhamnosus 1 each DAILY20 PO Last administered on 08/15/25at 23:11; Start 07/26/25 at 20:00; Stop 08/25/25 at 19:59 Iron Sucrose 200 mg ONCE ONCE IV Last administered on 07/26/25at 14:19; Start 07/26/25 at 14:00; Stop 07/26/25 at 14:01; Status DC Lidocaine 1 patch DAILY TP Last administered on 08/16/25at 10:01; Start 07/28/25 at 09:00; Stop 08/27/25 at 08:59 Simethicone 80 mg Q6H6 PO Last administered on 08/16/25at 06:03; Start 07/27/25 at 12:00; Stop 08/26/25 at 11:59 Acetaminophen 500 mg Q6H6 PRN PO; Start 07/27/25 at 16:30; Stop 08/07/25 at 12:15; Status DC Lidocaine 1 patch ONCE ONCE TP Last administered on 07/27/25at 19:25; Start 07/27/25 at 19:30; Stop 07/27/25 at 19:31; Status DC Albumin Human 50 ml @ 0 mls/hr AD ONCE IV Last administered on 07/28/25at 17:44; Start 07/28/25 at 15:30; Stop 07/28/25 at 15:31; Status DC Albumin Human 100 ml @ 0 mls/hr AD ONCE IV Last administered on 07/29/25at 14:26; Start 07/29/25 at 12:30; Stop 07/29/25 at 12:31; Status DC Hydromorphone HCl 0.5 mg Q4H PRN IVP Last administered on 08/03/25at 13:09; Start 07/29/25 at 13:30; Stop 08/03/25 at 13:29; Status DC Gabapentin 100 mg TID PO Last administered on 08/01/25at 20:14; Start 07/29/25 at 14:00; Stop 08/02/25 at 09:21; Status DC Clotrimazole 1 GM BID TP Last administered on 08/15/25at 09:09; Start 07/29/25 at 21:00; Stop 08/28/25 at 20:59 Sucralfate 1 gm ACHS PO Last administered on 08/16/25at 06:43; Start 07/29/25 at 21:00; Stop 08/28/25 at 20:59 Piperacillin Sod/ Tazobactam Sod 3.375 gm Q8H IVPB Last administered on 08/10/25at 04:05; Start 07/31/25 at 11:30; Stop 08/10/25 at 11:29; Status DC Sodium Chloride 50 ml AD IV; Start 07/31/25 at 11:30; Stop 07/31/25 at 11:12; Status DC Iron Sucrose 300 mg/Sodium Chloride 250 ml @ 83 mls/hr ONCE ONCE IV Last administered on 07/31/25at 13:36; Start 07/31/25 at 12:00; Stop 07/31/25 at 15:00; Status DC Fentanyl 25 mcg Q72H TD; Start 07/31/25 at 14:30; Stop 07/31/25 at 14:44; Status DC Acetaminophen/ Hydrocodone Bitart 1 tab Q4H PRN PO Last administered on 08/05/25at 14:57; Start 07/31/25 at 16:30; Stop 08/05/25 at 16:29; Status DC Chromium/Copper/ Manganese/Zinc 3 ml/Multivitamins/ Minerals 10 ml/ Amino Acids/ Electrolytes/ Dextrose 2,000 ml @ 80 mls/hr ONCE ONCE IV Last administered on 08/01/25at 20:25; Start 08/01/25 at 20:00; Stop 08/02/25 at 20:59; Status DC Albumin Human 100 ml @ 0 mls/hr AD ONCE IV Last administered on 08/02/25at 09:41; Start 08/02/25 at 09:30; Stop 08/02/25 at 09:33; Status DC Lidocaine HCl 20 ml STK-MED ONCE .ROUTE; Start 08/02/25 at 11:24; Stop 08/02/25 at 11:24; Status DC Iohexol 50 ml STK-MED ONCE IV; Start 08/02/25 at 11:24; Stop 08/02/25 at 11:25; Status DC Estrogens Conjugated 1 appl ONCE ONCE VG; Start 08/02/25 at 12:00; Stop 08/02/25 at 12:01; Status DC Fentanyl Citrate 100 mcg STK-MED ONCE .ROUTE; Start 08/02/25 at 11:53; Stop 08/02/25 at 11:53; Status DC Midazolam HCl 2 mg STK-MED ONCE .ROUTE; Start 08/02/25 at 11:54; Stop 08/02/25 at 11:54; Status DC Midazolam HCl 2 mg STK-MED ONCE .ROUTE; Start 08/02/25 at 12:15; Stop 08/02/25 at 12:16; Status DC Multivitamins/ Minerals 10 ml/ Chromium/Copper/ Manganese/Zinc 3 ml/Amino Acids/ Electrolytes/ Dextrose 2,000 ml @ 80 mls/hr ONCE ONCE IV Last administered on 08/02/25at 21:08; Start 08/02/25 at 20:00; Stop 08/03/25 at 18:39; Status DC Estrogens Conjugated 1 appl ONCE ONCE VG Last administered on 08/02/25at 18:47; Start 08/02/25 at 18:30; Stop 08/02/25 at 18:31; Status DC Albumin Human 50 ml @ 0 mls/hr Q12H IV; Start 08/02/25 at 18:30; Stop 08/02/25 at 20:04; Status DC Albumin Human 50 ml @ 100 mls/hr Q12H IV Last administered on 08/05/25at 10:12; Start 08/02/25 at 21:30; Stop 08/05/25 at 09:59; Status DC Hydromorphone HCl 0.5 mg Q4H PRN IVP Last administered on 08/07/25at 05:09; Start 08/03/25 at 18:00; Stop 08/07/25 at 10:03; Status DC Chromium/Copper/ Manganese/Zinc 3 ml/Multivitamins/ Minerals 10 ml/ Amino Acids/ Electrolytes/ Dextrose 2,000 ml @ 80 mls/hr ONCE ONCE IV Last administered on 08/03/25at 21:51; Start 08/03/25 at 20:00; Stop 08/04/25 at 12:47; Status DC Chromium/Copper/ Manganese/Zinc 3 ml/Multivitamins/ Minerals 10 ml/ Amino Acids/ Electrolytes/ Dextrose 2,000 ml @ 80 mls/hr ONCE ONCE IV Last administered on 08/04/25at 21:54; Start 08/04/25 at 21:00; Stop 08/05/25 at 21:59; Status DC Metoclopramide HCl 5 mg BID IVP Last administered on 08/16/25at 09:59; Start 08/04/25 at 21:00; Stop 09/03/25 at 20:59 Iohexol 75 ml STK-MED ONCE IV; Start 08/04/25 at 14:27; Stop 08/04/25 at 14:26; Status DC Propofol 200 mg STK-MED ONCE IV; Start 08/05/25 at 12:54; Stop 08/05/25 at 12:54; Status DC Lidocaine HCl 100 mg STK-MED ONCE .ROUTE; Start 08/05/25 at 12:54; Stop 08/05/25 at 12:55; Status DC Pantoprazole Sodium 40 mg BID IVP Last administered on 08/05/25at 20:25; Start 08/05/25 at 21:00; Stop 08/06/25 at 08:39; Status DC Multivitamins/ Minerals 10 ml/ Amino Acids/ Electrolytes/ Dextrose 2,000 ml @ 80 mls/hr ONCE ONCE IV Last administered on 08/06/25at 04:53; Start 08/06/25 at 05:00; Stop 08/07/25 at 05:59; Status DC Pharmacy Profile Note 1 each ONCE MISC; Start 08/06/25 at 16:00; Stop 08/07/25 at 07:07; Status DC Lidocaine HCl/Al Hydroxide/Mg Hydroxide/ Dicyclomine HCl 20ML OR AD ONCE PO Last administered on 08/06/25at 16:45; Start 08/06/25 at 16:30; Stop 08/07/25 at 16:29; Status DC Multivitamins/ Minerals 10 ml/ Amino Acids/ Electrolytes/ Dextrose 2,000 ml @ 80 mls/hr ONCE ONCE IV; Start 08/07/25 at 07:00; Stop 08/07/25 at 06:32; Status DC Multivitamins/ Minerals 10 ml/ Chromium/Copper/ Manganese/Zinc 3 ml/Amino Acids/ Electrolytes/ Dextrose 2,000 ml @ 80 mls/hr ONCE ONCE IV Last administered on 08/07/25at 06:41; Start 08/07/25 at 07:00; Stop 08/08/25 at 04:36; Status DC Acetaminophen 500 mg Q6H6 PRN PO; Start 08/07/25 at 10:00; Stop 08/07/25 at 10:03; Status DC Hydromorphone HCl 0.5 mg Q4H PRN IVP Last administered on 08/10/25at 20:27; Start 08/07/25 at 10:00; Stop 08/11/25 at 10:32; Status DC Acetaminophen/ Hydrocodone Bitart 1 tab Q4H PRN PO Last administered on 08/12/25at 00:46; Start 08/07/25 at 12:30; Stop 08/12/25 at 12:29; Status DC Chromium/Copper/ Manganese/Zinc 3 ml/Amino Acids/ Electrolytes/ Dextrose 2,000 ml @ 80 mls/hr ONCE ONCE IV; Start 08/08/25 at 05:00; Stop 08/08/25 at 04:59; Status DC Chromium/Copper/ Manganese/Zinc 3 ml/Amino Acids/ Electrolytes/ Dextrose 2,000 ml @ 80 mls/hr ONCE ONCE IV Last administered on 08/08/25at 05:51; Start 08/08/25 at 07:00; Stop 08/09/25 at 05:18; Status DC Chromium/Copper/ Manganese/Zinc 3 ml/Amino Acids/ Electrolytes/ Dextrose 2,000 ml @ 80 mls/hr ONCE ONCE IV Last administered on 08/09/25at 06:11; Start 08/09/25 at 07:00; Stop 08/10/25 at 07:59; Status DC Lidocaine HCl 50 ml STK-MED ONCE .ROUTE; Start 08/09/25 at 09:59; Stop 08/09/25 at 09:59; Status DC Iohexol 50 ml STK-MED ONCE IV; Start 08/09/25 at 09:59; Stop 08/09/25 at 09:59; Status DC Sodium Chloride 10 ml Q8H IJ Last administered on 08/16/25at 03:00; Start 08/09/25 at 11:00; Stop 09/08/25 at 10:59 Fentanyl 12 mcg Q72H TD; Start 08/09/25 at 13:00; Stop 08/09/25 at 15:19; Status DC Fentanyl Citrate 100 mcg STK-MED ONCE .ROUTE Last administered on 08/09/25at 16:15; Start 08/09/25 at 13:17; Stop 08/09/25 at 13:17; Status DC Midazolam HCl 2 mg STK-MED ONCE .ROUTE Last administered on 08/09/25at 16:15; Start 08/09/25 at 13:17; Stop 08/09/25 at 13:18; Status DC Fentanyl 12 mcg Q72H TD Last administered on 08/09/25at 15:38; Start 08/09/25 at 15:30; Stop 08/11/25 at 10:32; Status DC Chromium/Copper/ Manganese/Zinc 3 ml/Multivitamins/ Minerals 10 ml/ Amino Acids/ Electrolytes/ Dextrose 2,000 ml @ 80 mls/hr ONCE ONCE IV Last administered on 08/10/25at 09:54; Start 08/10/25 at 08:30; Stop 08/11/25 at 09:29; Status DC Piperacillin Sod/ Tazobactam Sod 3.375 gm Q8H IVPB Last administered on 08/16/25at 06:18; Start 08/10/25 at 13:00; Stop 08/20/25 at 12:59 Fentanyl 25 mcg Q72H TD; Start 08/12/25 at 15:30; Stop 08/12/25 at 16:00; Status DC Hydromorphone HCl 0.5 mg Q6H PRN IVP Last administered on 08/15/25at 16:03; Start 08/11/25 at 11:00; Stop 08/16/25 at 10:59; Status DC Methocarbamol 500 mg BID PO Last administered on 08/16/25 09:57; Start 08/11/25 at 16:00; Stop 09/10/25 at 15:59 Gabapentin 100 mg TID PO Last administered on 08/16/25at 09:58; Start 08/11/25 at 21:00; Stop 09/10/25 at 20:59 Multivitamins/ Minerals 10 ml/ Chromium/Copper/ Manganese/Zinc 3 ml/Amino Acids/ Electrolytes/ Dextrose 2,000 ml @ 80 mls/hr ONCE ONCE IV Last administered on 08/12/25at 22:38; Start 08/12/25 at 20:00; Stop 08/13/25 at 11:49; Status DC Fat Emulsion Intravenous 250 ml @ 42 mls/hr [id number] IV Last administered on 08/16/25 09:57; Start 08/13/25 at 10:00; Stop 09/12/25 at 09:59 Fentanyl 25 mcg Q72H TD Last administered on 08/16/25at 00:02; Start 08/12/25 at 21:00; Stop 08/17/25 at 20:59 Acetaminophen/ Hydrocodone Bitart 1 tab Q4H PRN PO Last administered on 08/16/25at 06:13; Start 08/12/25 at 16:30; Stop 08/17/25 at 16:29 Home Med HS TD; Start 08/12/25 at 21:00; Stop 09/11/25 at 20:59 Multivitamins/ Minerals 10 ml/ Chromium/Copper/ Manganese/Zinc 3 ml/Amino Acids/ Electrolytes/ Dextrose 2,000 ml @ 80 mls/hr ONCE ONCE IV Last administered on 08/13/25at 20:15; Start 08/13/25 at 20:00; Stop 08/14/25 at 11:29; Status DC Multivitamins/ Minerals 10 ml/ Amino Acids/ Electrolytes/ Dextrose 2,000 ml @ 80 mls/hr ONCE ONCE IV Last administered on 08/14/25at 21:37; Start 08/14/25 at 20:00; Stop 08/15/25 at 20:59; Status DC Duloxetine HCl 30 mg BID PO Last administered on 08/16/25at 09:57; Start 08/15/25 at 21:00; Stop 09/14/25 at 20:59 Ketorolac Tromethamine 15 mg Q8H PRN IM Last administered on 08/16/25at 00:01; Start 08/15/25 at 18:30; Stop 08/16/25 at 06:57; Status DC Pharmacy Profile Note 1 each ONCE MISC; Start 08/16/25 at 16:00; Stop 08/15/25 at 21:12; Status DC Multivitamins/ Minerals 10 ml/ Amino Acids/ Electrolytes/ Dextrose 2,000 ml @ 80 mls/hr ONCE ONCE IV Last administered on 08/15/25at 23:25; Start 08/15/25 at 21:00; Stop 08/16/25 at 13:13; Status DC Amino Acids/ Electrolytes/ Dextrose 2,000 ml @ 80 mls/hr ONCE ONCE IV; Start 08/16/25 at 13:30; Stop 08/17/25 at 14:29 SUSAN JHAVERI MD Aug 16, 2025 13:26
--- NOTE | 2025-08-16 13:42 | PN ---
[facility] PROGRESS NOTE Date of Service: Aug 16, 2025 Time of Service: 13:42 SUBJECTIVE: Ms. Gray is a 55-year-old female that was seen and examined today on 07/20/2025. Patient reports that she came to the emergency department with a chief complaint of abdominal pain. Onset was 07/09/2025. Location is all four quadrants. Duration is constant. Character is described as pressure and " like I have a lot of gas trapped. " there was no alleviating factors. There was no aggravating factors. Patient reports associated abdominal swelling. 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 After the discharge she was taking pain medications and her condition started worsening after few days. She is in constant follow up with Dr Gann. Today in the emergency department WBCs 21.2, left shift neutrophils 85.5%, BUN 26, creatinine 3.1, GFR 17, lactic acid 8.0, no urinalysis has been collected or sent to lab, CT of abdomen and pelvis showed of free air in the abdomen which could be a suspected bowel perforation versus postsurgical changes, moderate ascites, fissure post surgical changes. Chest x-ray shows right pleural effusion. Additionally patient had a heart rate of 125, respirations 26, together with leukocytosis and lactic acidosis patient met clinical sepsis criteria additionally patient's blood pressure dropped to 85/50 mmHg requiring vasopressor support therefore meeting criteria for septic shock. Patient will be admitted to the intensive care unit. Emergency room physician spoke with patient's surgeon, Dr. Gann who requested patient be admitted under hospitalist service and she will follow this case along. 07/21/25 Patient was evaluated at the bedside. She was accompanied by her daughter. She is oriented to the time, place and person. She complained of abdominal pain in all the quadrants. She hasn't had bowel movement since Saturday and also is unable to pass flatus at this time. She has guarding, rigidity and tenderness all over the abdomen, showing the signs of peritonitis. She was seen by Dr Gann this m and is planned to be taken to OR this afternoon. Dueñas catheter is in place, as she wasn't able to pass the urine. There is no fever, chills and any other signs of infection. 07/22/25 Patient was evaluated at the bedside. She was accompanied by her daughter. She is oriented to the time, place and person. She underwent Diagnostic laparoscopy, abdominal washout, drain placement and diverting loop ileostomy creation, The procedure revealed Bilious peritonitis, 2 mm perforation of the colonic anastomosis. She is hemodynamically stable with Blood pressure of 110/73 and HR of 83. Currently she complains of abdominal pain which is getting better than yesterday, its 3-4/10 intensity. There is no rigidity. She is anxious about the outcomes and had discussion regarding her current clinical status and lab parameters. There is no fever, chills and any other signs of infection. 07/23/25 Patient was evaluated at the bedside. She was accompanied by her daughter. She is oriented to the time, place and person. She status post diagnostic laparoscopy, abdominal washout, drain placement and diverting loop ileostomy creation. Currently she complains of abdominal pain which is 5/10 intensity. She also complaints of mild lower back pain There is no fever, chills and any other signs of infection. She has CHRIS drain in-situ with clear fluid along with colostomy bag. She is currently tolerating clear liquid diet. 07/24/2025 Patient is seen and examined at the bedside. Vitals blood pressure ranging in 100s/50s, pulse rate 50s, SpO2 greater than 95% on room air. She mentions about experiencing pressure-like discomfort on the right side of the abdomen and pain when she tries to eat. No acute events last night. She denies fever, chills, nausea, vomiting, chest pain. CHRIS output approximately 100cc/hr, serosanguineous fluid. Ileostomy bag in place. She is tolerating clear liquid diet without any nausea/vomiting. Labs hemoglobin 9.8, BUN 38, creatinine improved from 1.6-1.1. 07/25/2025 Patient is seen and examined at the bedside. She complains of abdominal pain which is 7/10 in intensity. No acute events last night. She denies fever, chills, nausea, vomiting, chest pain. CHRIS output approximately 100cc/hr, serosanguineous fluid. Ileostomy bag in place. The patient has been started on spironolactone 25mg BID and Lasix 20 mg once daily. There is high output from CHRIS but it is clear serous, most likely related to her ascites from her history of liver cirrhosis. She is tolerating clear liquid diet without any nausea/vomiting. 07/26/2025 Patient is seen and examined at the bedside. She complains of abdominal pain which remains constant. No acute events last night. She denies fever, chills, nausea, vomiting, chest pain. Patient is status post with a CHRIS drain. The drain has been collecting the serosanguineous fluid secondary to ascites. She has been tolerating liquid diet and her diet has been advanced to soft diet. She still h as bloating for which probiotics and fibers has been recommended. Hemoglobin has gradually trended down to 9.2 and was given IV Venofer. Patient to get up and ambulate and work with physical therapy. 07/27/2025 Patient is seen and examined at the bedside. She complains of abdominal pain which is 6/10 in intensity. No acute events last night. She denies fever, chills, nausea, vomiting, chest pain. Patient is unable to tolerate the soft diet, hence she is currently receiving the liquid diets. The CHRIS drain output is still high and there was small amount of drainage observed in the right ileostomy. 07/28/2025 Patient is seen and examined at the bedside. She complains of abdominal pain which is 9/10 in intensity. No acute events last night. She denies fever, chills, nausea, vomiting, chest pain. Patient reported pain after eating but no nausea or vomiting. WBC is gradually trending up from 8.3-7.3-11.1-11.8. She had lidocaine patch placed this morning. She was started on simethicone 80 mg yesterday. Pertinent she is currently receiving Dilaudid 0.5 mg. Abdominal ultrasound has been ordered for further assessment. 07/29/2025 Patient is seen and examined at the bedside. She continues to complain of severe abdominal pain, rated 9/10 in intensity, unchanged from prior. She is currently receiving Dilaudid 0.5 mg for pain. She reports discomfort related to Dueñas catheterization. She denies fever, chest pain, nausea or vomiting at this time. No acute events were reported overnight. Blood pressure noted today is noted to be 98/54 mm Hg which is slightly low. Per surgery team, stoma is likely to be removed today. Hemoglobin has trended down from 9.7 g/dl to 9.0 g/dl. 07/30/2025 Patient is seen and examined at the bedside. She continues to complain of severe abdominal pain. Her abdominal distention has slightly improved. Dueñas's catheter was removed due to persistent discomfort. We will continue with scheduled removal of the ascites fluid and from CHRIS bulb. Ultrasound of abdomen was concerning for cholelithiasis with biliary sludge and gallbladder distention. HIDA scan was performed today. If consistent with cholecystitis patient will need cholecystostomy tube placement. 07/31/2025 Patient is seen and examined at the bedside. She was accompanied by her daughter. She continues to complain of severe abdominal pain. She is currently on Dilaudid 0.5mg Q4H PRN, which relieves the symptoms for 2-3 hours, after that she develops same level of pain and discomfort again. Currently awaiting the HIDA scan results. Her sodium level is 133 and albumin level is trending downwards from 2.3 to 2.1. Her Iron panel results showed: Iron 20L, TIBC 147L and %sat 16.3L. For her continuos pain she is started on Fentanyl 25mcg. CHRIS drain culture has beens sent. Based on the results of HIDA scan, CT chest will be planned. 08/01/2025: Patient is seen and examined this morning at bedside. She was accompanied by her daughter. The patient complains of severe abdominal pain. She is currently being managed with [place], and Dilaudid for breakthrough pain. HIDA scan results are back, and show acute cholecystitis. Surgery has been made aware of the results. IR has been consulted for cholecystostomy tube placement. The patient will be started on PPN, as recommended by general surgery. The patient follows with Dr. Sol outpatient for her liver cirrhosis. The patients daughter would like her metal tester Dr. Sol to be involved in the patients care, and be updated with her status. 08/02/2025: Patient is seen and evaluated in the room 432. She was accompanied by her daughter. She complains of severe abdominal pain. She also complained of bleeding through her vagina, pink tinged urine. Her vitals are in the normal range. Her labs are in the normal range except for Hb is 8.6, Na is 135, K is 5.2, BUN is 4, Glucose is 150, CRP is 103.90. She went for placement of cholecystectomy tube by IR. We did a pelvic exam and ordered a vaginal estrogen cream and urinalysis. Also for her hyperkalemia we checked the potassium again and its 4.1. So we will repeat the labs tomorrow. We ordered a dose of albumin for her. 08/03/2025: Patient is seen and evaluated in the room 432. She has mild abdominal pain today. Her pain improved after the placement for cholecystotomy tube. Her vitals are in the normal range. Her labs are normal except for hemoglobin 8.2, glucose 156, CRP 89.8. Her aerobic and anaerobic culture of drain showed no growth. Gastroenterology saw the patient and they recommended 25 grams of 25% IV albumin q12H for 3 days. Her bleeding through the vagina decreased. The drainage through the left abdomen is 100ml, right abdomen is 20ml, left anterior abdomen 5ml. 08/04/2025: Patient is seen and evaluated in the room 432. She has abdominal pain today. Her vitals are in the normal range. Her labs are normal except for Hb is 8, CRP is 72.10, glucose is 130. Aerobic and anaerobic drain culture showed no growth. She is not able to tolerate her food. The drainage through the left abdomen is 100ml, right abdomen is 20ml, left anterior abdomen 5ml. Gastroenterology is planning to do EGD tomorrow. Surgery wanted to do a CT abdomen and pelvis with IV contrast. CT scan showed perisplenic and infrasplenic fluid collection measuring 6.0 x 6.1 x 8.9 cm, splenomegaly, with spleen measuring 15.2 cm, cholecystostomy tube in situ with decompressed gallbladder, abdominal drain in situ with tip in the pelvis. We ordered T.bilirubin and we will monitor the output from colostomy tube. We are also planning to add metoclopramide. 08/05/2025: Patient is seen and evaluated in the room 432. She has abdominal pain today. Her abdomen is tender to touch and warm. Her vital signs are in the normal range except for BP is 117/45. Her labs are normal except for Hb is 8.2, sodium is 135, creatinine is 0.3, CRP is 60.9 The drain output from left abdomen is 40ml, left anterior abdomen 0ml, right abdomen 0ml. Her saturation is 100% on 10L of O2. Her labs are in the normal range except for Hb is 8.2, HCT is 25.9, sodium is 135, glucose is 107, CRP is 60.90. She underwent endoscopy today and they did biopsy from 3 sites. GI said that they will consult radiology to check whether CHRIS drain and cholecystostomy tube are in place. General surgery will consult IR to evaluate perisplenic fluid collection for potential aspiration. 08/06/2025: Patient is seen and evaluated in the room 432. She has abdominal pain today. Her abdomen is tender to touch and warm. Her vital signs are in the normal range except for 97/63. Her labs are in the normal range except for Hb is 8.1, sodium is 135, blood glucose is 151, CRP 53.60. We are waiting for IR consult for evaluation and for potential aspiration of perisplenic fluid. The drain output from right abdomen is 20ml. 08/07/2025: Patient is seen and evaluated in the room 432. She has abdominal pain today. Her abdomen is tender to touch and warm. Her vital signs are in the normal range except for blood pressure which is 102/60. Her labs are in the normal range except for Hb is 8.5, WBC is 4.4, RDW is 17.3, sodium is 134, glucose is 147. We are waiting for IR consult for evaluation and for potential aspiration of perisplenic fluid. The drain output from right abdomen is 20ml. The [employer]ATIONS COMMISSIONER told me that she eats her food after taking her pain medications. Nurse is planning to start full liquid diet for lunch. 08/08/2025: She was evaluated at the bedside this morning. She is AAO x3. she complained of epigastric pain which gets worse with food . Moderate tenderness was appreciated on the epigastric region. Her blood pressure is 99/46, pulse 80. Remarkable lab is for WBC of 4.8, hemoglobin 9, CRP 43.90. She is scheduled with IR for perisplenic fluid aspiration and checking the position of cholecystostomy tube. She is on full liquid diet. She is on Zosyn, fluconazole. Surgery, GI, ID on the board. Rest of the plan as discussed below. 08/09/2025: Patient went to [facility] for [facility]. As per nurse, her cholecystostomy tube was already correctly positioned but had some stones so tube was flushed. She complained of epigastric and pelvic pain. For pain control, fentanyl patch has been ordered. She is pending perisplenic fluid aspiration by IR. Her blood pressure is 98/58, pulse 90. She is currently NPO. She is on Zosyn, fluconazole. Surgery, GI, ID on the board. Rest of the plan as discussed below. 08/10/2025: Patient was seen and examined at bedside. She underwent CT GUIDED PERISPLENIC PIGTAIL DRAINAGE CATHETER PLACEMENT with Aspiration of perisplenic fluid. There has been 25 ml sanguinous drainage so far in the catheter. Her cholecystostomy tube has had 30 mL drainage in the past 24 hours. She is currently on clear liquid diet tolerating it well. She continues to complain pain in her abdomen without any peritoneal signs. She was started on fentanyl patch yesterday. Gram stain and body fluid culture were sent after drainage of perisplenic abscess which showed RARE GRAM POSITIVE COCCI after 1 day. Patient is currently on Zosyn. 08/11/2025: Patient was seen and examined. She continues to complain of abdominal pain. Her multimodal pain medications were adjusted with fentanyl increased to 25mcg and Dilaudid frequency changed from q.4h to q.6h. She is currently on clear liquid diet and complains of pain while eating. She continues on Zosyn and fluconazole. We are waiting for culture results after drainage of perisplenic abscess. Incision site is clean, dry and intact. Will continue to follow recommendations from ID, General surgery and Nephrology. 08/12/2025: Patient was seen and examined at bedside. She complained of pain in right upper abdomen as well as left lower quadrant, along the drainage catheter insertion. No peritoneal signs present. She is currently on multimodal pain management. Today, we are advancing her to full liquid diet. Culture results have been negative so far. Incision site is clean, dry and intact. Will continue to follow recommendations from ID, General surgery and Nephrology. 08/13/2025: Patient was seen and examined at bedside. She complained of pain in right upper quadrant and left quadrant of abdomen along the line of drainage catheter placement. Comparatively, her pain is better than yesterday and patient states that she feels pain in between pain medication. No peritoneal signs are present. We will follow up with General surgery for CHRIS drain removal as there has been 0 to minimal drainage in the past few days. Patient is currently on full liquid diet. 08/14/2025 Patient is seen and examined at the bedside. She complains of intermittent pain in the left upper quadrant near the drainage catheter site which is well controlled with pain medications. No acute events last night. Vitals blood pressure in 90s/50s. Urine output 1.4 L, stool 1.2 L [ileostomy bag], 23 mL from left abdominal drain, 20 mL from right abdominal drain, 15 mL from RUQ drain over the last 24 hours. She denies fever, chills, chest pain/shortness of breath, tingling/numbness/pain in bilateral lower extremities. She is able to tolerate GI soft/bland diet without any nausea/vomiting. Labs WBC 4.1, hemoglobin stable at 8.9. We will continue parenteral nutrition. 08/15/2025: Patient was seen and examined this morning at bedside. The patient reports continued abdominal pain, worse on her left upper quadrant. The patient states that when she takes her pain medication, the pain resolves. However, without the pain medication, the patient reports that the pain remains prominent. Duloxetine will be started for its dual benefit in managing the abdominal pain and addressing potential underlying mood symptoms that may be amplifying the patients pain perception. I educated the patient on importance of eating her GI soft diet. We will continue to follow ID and surgery recommendations. 08/16/2025: Patient was seen and examined this morning at bedside in room 432. Patient admits to have continued nausea since yesterday and is unable to tolerate any food. Her CHRIS drain was removed yesterday and still continues to have left upper quadrant and right upper quadrant drains. Patient is discontinued from Dilaudid and is currently managed with p.r.n. [place] q.4. Dr. Gann recommended to reduce the dose of TPN to 40 mL to assess if patient's appetite improves. They also changed metoclopramide to scheduled q.12. We will follow the surgery and ID recommendations. REVIEW OF SYSTEMS CONSTITUTIONAL: No fever, chills, or night sweats. NEUROLOGICAL: Denies headache, sensory and motor deficit. CARDIOVASCULAR: Denies any exertional angina, dyspnea on exertion, palpitations. PULMONARY: Denies any shortness of breath, cough, phlegm/sputum, hemoptysis, pleuritic chest pain. GASTROINTESTINAL: Admits to nausea. Denies vomiting. No peritoneal signs observed. GENITOURINARY: Denies frequency, urgency, nocturia, hematuria or incontinence. PHYSICAL EXAM GENERAL APPEARANCE: The patient is alert, awake and oriented and bedbound. NEUROLOGICAL: No sensory and motor deficits. CHEST: Normal chest expansion. LUNGS: Normal Vesicular breath sound. Absence of any rales, rhonchi or any wheezing. CARDIOVASCULAR: Regular. S1 and S2 normal. No appreciable rubs, murmurs or gallops. ABDOMEN: Abdomen is soft and slightly tender. Ileostomy creation. Cholecystostomy and left upper abdominal quadrant catheter in place. Absence of guarding, rigidity and rebound tenderness GENITOURINARY: No suprapubic tenderness. No costovertebral angle tenderness. Vital Signs (last 8hr) Date Time Temp Pulse Resp B/P (MAP) Pulse Ox O2 Delivery O2 Flow Rate FiO2 08/16/25 07:42 98.2 77 16 111/59 95 Room Air 21 LABS: Laboratory: Test 08/16/25 10:57 08/16/25 04:10 Range/Units Whole Blood Glucose 132 H 70-110 MG/DL White Blood Count 6.0 # 4.8-10.8 K/uL Red Blood Count 3.04 L 4.00-5.50 MIL/uL Hemoglobin 9.0 L 12.0-16.0 g/dL Hematocrit 28.0 L 36-48 % Mean Corpuscular Volume 92.1 79-99 fL Mean Corpuscular Hemoglobin 29.6 27.0-33.0 pg Mean Corpuscular Hemoglobin Concent 32.1 32.0-36.0 g/dL Red Cell Distribution Width 17.5 H 11.0-15.5 % Platelet Count 218 130-400 K/uL Mean Platelet Volume 9.9 7.5-10.5 fL Immature Granulocyte % (Auto) 1.3 H 0-1 % Neutrophils (%) (Auto) 71.8 40.0-77.0 % Lymphocytes (%) (Auto) 12.9 L 21.0-51.0 % Monocytes (%) (Auto) 10.0 3.0-13.0 % Eosinophils (%) (Auto) 3.5 0.0-8.0 % Basophils (%) (Auto) 0.5 0.0-5.0 % Neutrophils # (Auto) 4.3 1.8-7.7 K/uL Lymphocytes # (Auto) 0.8 L 1.0-4.8 K/uL Monocytes # (Auto) 0.6 0.1-1.0 K/uL Eosinophils # (Auto) 0.21 0.00-0.70 K/uL Basophils # (Auto) 0.03 0.00-0.20 K/uL Absolute Immature Granulocyte (auto 0.08 0-1 K/uL Nucleated Red Blood Cells 0.0 0.0-0.19 % Sodium Level 133 L 136-145 mmol/L Potassium Level 4.3 3.5-5.1 mmol/L Chloride Level 103 101-111 mmol/L Carbon Dioxide Level 21 21-32 mmol/L Blood Urea Nitrogen 15 7-18 mg/dL Creatinine 0.6 0.5-1.0 mg/dL Glomerular Filtration Rate Calc 105 >90 mL/min Random Glucose 134 H 70-105 mg/dL Total Calcium 8.8 8.5-10.1 mg/dL Total Bilirubin 0.4 0.2-1.0 mg/dL Aspartate Amino Transf (AST/SGOT) 38 H 10-37 U/L Alanine Aminotransferase (ALT/SGPT) 14 12-78 U/L Alkaline Phosphatase 150 H 50-136 U/L C-Reactive Protein, Quantitative 16.10 H 0.5-3.0 mg/L Total Protein 7.0 6.0-8.3 g/dL Albumin 2.4 L 3.5-5.0 g/dL Current Medications Medications (Trade) Dose Ordered Sig/Gregory Route PRN Reason Start Time Stop Time Status Last Admin Dose Admin Acetaminophen (TYLenol 500MG TAB) 500 mg Q6H6 PRN PO MILD PAIN (1-3) 07/27/25 16:30 08/07/25 12:15 DC Acetaminophen (TYLenol 500MG TAB) 500 mg Q6H6 PRN PO MILD PAIN (1-3) 08/07/25 10:00 08/07/25 10:03 DC Acetaminophen (TYLenol 650MG SUPPOSITORY) 650 mg Q6H PRN RC MILD PAIN (1-3) 07/21/25 00:00 07/27/25 16:22 DC Acetaminophen/ Hydrocodone Bitart (NORco 5/325MG) 1 tab Q4H PRN PO MODERATE PAIN (4-6) 07/31/25 16:30 08/05/25 16:29 DC 08/05/25 14:57 1 TAB Acetaminophen/ Hydrocodone Bitart (NORco 5/325MG) 1 tab Q4H PRN PO MODERATE PAIN (4-6) 08/07/25 12:30 08/12/25 12:29 DC 08/12/25 00:46 1 TAB Acetaminophen/ Hydrocodone Bitart (NORco 5/325MG) 1 tab Q4H PRN PO MODERATE PAIN (4-6) 08/12/25 16:30 08/17/25 16:29 08/16/25 06:13 1 TAB Albumin Human 50 ml @ 100 mls/hr Q12H IV 08/02/25 21:30 08/05/25 09:59 DC 08/05/25 10:12 100 MLS/HR Albumin Human 50 ml @ 0 mls/hr Q12H IV 08/02/25 18:30 08/02/25 20:04 DC Albumin Human 100 ml @ 0 mls/hr ONCE IV 07/25/25 12:00 07/26/25 11:59 DC 07/25/25 13:43 100 MLS/HR Clotrimazole (Lotrimin) 1 GM BID TP 07/29/25 21:00 08/28/25 20:59 08/15/25 09:09 1 GM Cyclobenzaprine HCl (Cyclobenzaprine HCl) 5 mg TID PO 07/25/25 14:00 07/26/25 14:00 DC 07/26/25 14:19 5 MG Duloxetine HCl (CymbALTA 30 mg CAP) 30 mg BID PO 08/15/25 21:00 09/14/25 20:59 08/16/25 09:57 30 MG Fat Emulsion Intravenous 250 ml @ 42 mls/hr DAILY10 IV 08/13/25 10:00 09/12/25 09:59 08/16/25 09:57 42 MLS/HR Fentanyl (DURAgesic 12 MCG/HR PATCH) 12 mcg Q72H TD 08/09/25 13:00 08/09/25 15:19 DC Fentanyl (DURAgesic 12 MCG/HR PATCH) 12 mcg Q72H TD 08/09/25 15:30 08/11/25 10:32 DC 08/09/25 15:38 12 MCG Fentanyl (DURAgesic 25 MCG/HR PATCH) 25 mcg Q72H TD 07/31/25 14:30 07/31/25 14:44 DC Fentanyl (DURAgesic 25 MCG/HR PATCH) 25 mcg Q72H TD 08/12/25 15:30 08/12/25 16:00 DC Fentanyl (DURAgesic 25 MCG/HR PATCH) 25 mcg Q72H TD 08/12/25 21:00 08/17/25 20:59 08/16/25 00:02 25 MCG Fluconazole/ Sodium Chloride (DiFLUCan 200 MG/ NS 100 ML) 200 mg Q24H IVPB 07/21/25 21:00 08/20/25 20:59 08/15/25 23:11 200 MG Furosemide (LASix 20MG TAB) 20 mg DAILY PO 07/25/25 11:00 08/02/25 11:53 DC 08/02/25 09:42 20 MG Gabapentin (NEURontin 100 mg CAP) 100 mg TID PO 07/29/25 14:00 08/02/25 09:21 DC 08/01/25 20:14 100 MG Gabapentin (NEURontin 100 mg CAP) 100 mg TID PO 08/11/25 21:00 09/10/25 20:59 08/16/25 09:58 100 MG Home Med (Compound Po Narcotic) HS TD 08/12/25 21:00 09/11/25 20:59 Hydromorphone HCl (DiLAUDid 0.5MG INJ) 0.5 mg Q4H PRN IVP SEVERE PAIN (7-10) 07/24/25 10:00 07/29/25 09:59 DC 07/29/25 08:22 0.5 MG Hydromorphone HCl (DiLAUDid 0.5MG INJ) 0.5 mg Q4H PRN IVP SEVERE PAIN (7-10) 07/29/25 13:30 08/03/25 13:29 DC 08/03/25 13:09 0.5 MG Hydromorphone HCl (DiLAUDid 0.5MG INJ) 0.5 mg Q4H PRN IVP SEVERE PAIN (7-10) 08/03/25 18:00 08/07/25 10:03 DC 08/07/25 05:09 0.5 MG Hydromorphone HCl (DiLAUDid 0.5MG INJ) 0.5 mg Q4H PRN IVP SEVERE PAIN (7-10) 08/07/25 10:00 08/11/25 10:32 DC 08/10/25 20:27 0.5 MG Hydromorphone HCl (DiLAUDid 0.5MG INJ) 0.5 mg Q6H PRN IVP SEVERE PAIN (7-10) 08/11/25 11:00 08/16/25 10:59 DC 08/15/25 16:03 0.5 MG Insulin Human Regular (humuLIN R 100 UNIT/ML 3ML) INSULIN SLIDING SCAL... ACHS SQ 07/21/25 07:30 08/20/25 07:29 08/12/25 22:36 3 UNIT Ketorolac Tromethamine (toRADol) 15 mg Q8H PRN IM MODERATE PAIN (4-6) 08/15/25 18:30 08/16/25 06:57 DC 08/16/25 00:01 15 MG Lactated Ringer's 1,000 ml @ 75 mls/hr [id number] IV 07/21/25 00:00 07/21/25 13:17 DC 07/21/25 02:57 75 MLS/HR Lactated Ringer's 1,000 ml @ 75 mls/hr [id number] IV 07/21/25 13:30 07/24/25 11:09 DC 07/24/25 09:27 75 MLS/HR Lactobacillus Rhamnosus ([facility]) 1 each DAILY20 PO 07/26/25 20:00 08/25/25 19:59 08/15/25 23:11 1 EACH Lidocaine (Lidoderm Patch 5%) 1 patch DAILY TP 07/28/25 09:00 08/27/25 08:59 08/16/25 10:01 1 PATCH Lidocaine HCl/Al Hydroxide/Mg Hydroxide/ Dicyclomine HCl 20ML OR AD ONCE PO 08/06/25 16:30 08/07/25 16:29 DC 08/06/25 16:45 20 ML Magnesium Sulfate 50 ml @ 0 mls/hr PROTOCOL PRN IV MAGNESIUM PROTOCOL 07/21/25 07:00 08/20/25 06:59 08/01/25 06:05 25 MLS/HR Methocarbamol (methoCARBamol) 500 mg BID PO 08/11/25 16:00 09/10/25 15:59 08/16/25 09:57 500 MG Metoclopramide HCl (regLAN 10MG IV) 5 mg BID IVP 08/04/25 21:00 09/03/25 20:59 08/16/25 09:59 5 MG Metronidazole/ Sodium Chloride (flaGYL) 500 mg Q8H IV 07/21/25 14:00 07/21/25 13:40 DC Morphine Sulfate (morPHINE 2MG SYG) 2 mg Q4H PRN IVP SEVERE PAIN (7-10) 07/21/25 00:30 07/21/25 13:18 DC 07/21/25 04:46 2 MG Morphine Sulfate (morPHINE 4MG SYG) 4 mg Q3H PRN IV MODERATE PAIN (4-6) 07/21/25 13:30 07/26/25 16:29 DC 07/26/25 10:51 4 MG Norepinephrine 250 ml @ 0 mls/hr PROTOCOL IV 07/20/25 23:30 08/03/25 08:27 DC 07/21/25 10:56 18.45 MLS/HR Ondansetron HCl (zoFRAN 4MG INJ) 4 mg Q4H PRN IVP NAUSEA 07/21/25 13:30 08/20/25 13:29 08/16/25 10:23 4 MG Ondansetron HCl (zoFRAN 4MG INJ) 4 mg Q6H PRN IV NAUSEA/VOMITING 07/21/25 00:00 07/21/25 13:18 DC Pantoprazole Sodium (PROTonix 40MG INJ) 40 mg BID IV 07/26/25 21:00 08/20/25 08:59 08/16/25 09:58 40 MG Pantoprazole Sodium (PROTonix 40MG INJ) 40 mg BID IVP 08/05/25 21:00 08/06/25 08:39 DC 08/05/25 20:25 40 MG Pantoprazole Sodium (PROTonix 40MG INJ) 40 mg DAILY IV 07/21/25 09:00 07/26/25 09:31 DC 07/26/25 08:55 40 MG Pharmacy Profile Note (Pharmacy Communication) 1 each ONCE MISC 07/21/25 15:30 07/21/25 15:16 DC Pharmacy Profile Note (Pharmacy Communication) 1 each ONCE MISC 08/16/25 16:00 08/15/25 21:12 DC Pharmacy Profile Note (Pharmacy Communication) 1 each ONCE MISC 08/06/25 16:00 08/07/25 07:07 DC Piperacillin Sod/ Tazobactam Sod 50 ml @ 200 mls/hr ONCE STAT IVPB 07/20/25 19:15 07/20/25 19:29 DC 07/20/25 20:32 200 MLS/HR Piperacillin Sod/ Tazobactam Sod (Zosyn 3.375gm+NS 50ml) 3.375 gm Q12H IV 07/21/25 00:00 07/31/25 00:00 DC 07/30/25 23:55 3.375 GM Piperacillin Sod/ Tazobactam Sod (Zosyn 3.375gm+NS 50ml) 3.375 gm Q8H IVPB 07/31/25 11:30 08/10/25 11:29 DC 08/10/25 04:05 3.375 GM Piperacillin Sod/ Tazobactam Sod (Zosyn 3.375gm+NS 50ml) 3.375 gm Q8H IVPB 08/10/25 13:00 08/20/25 12:59 08/16/25 13:21 3.375 GM Potassium Chloride 100 ml @ 100 mls/hr AD PRN IV POTASSIUM PROTOCOL 07/24/25 08:30 08/23/25 08:29 07/30/25 06:23 100 MLS/HR Potassium Chloride (K-Dur/Klor-Con 20meq) 20 meq AD PRN PO POTASSIUM PROTOCOL 07/24/25 08:30 08/23/25 08:29 07/27/25 20:33 20 MEQ Potassium Chloride (KCl 10% Elixir 20meq/15ml) 20 meq AD PRN PO POTASSIUM PROTOCOL 07/24/25 08:30 08/23/25 08:29 07/31/25 08:15 20 MEQ Psyllium Hydrophilic Mucilloid (Metamucil) 1 tbs BID PO 07/26/25 21:00 08/25/25 20:59 08/16/25 09:58 1 TBS Simethicone (Mylicon) 80 mg Q6H6 PO 07/27/25 12:00 08/26/25 11:59 08/16/25 13:21 80 MG Sodium Bicarbonate 150 meq/Sodium Chloride 1,150 ml @ 0 mls/hr Q0M IVP 07/21/25 14:00 07/26/25 09:31 DC Sodium Chloride (NS 50ml) 50 ml AD IV 07/31/25 11:30 07/31/25 11:12 DC Sodium Chloride (Normal Saline Flush) 10 ml Q8H IJ 08/09/25 11:00 09/08/25 10:59 08/16/25 11:00 10 ML Spironolactone (Aldactone 25mg) 25 mg BID PO 07/25/25 21:00 07/26/25 09:01 DC 07/26/25 08:56 25 MG Sucralfate (Carafate) 1 gm ACHS PO 07/29/25 21:00 08/28/25 20:59 08/16/25 13:20 1 GM Thiamine HCl (Vitamin B-1) 100 mg DAILY IVP 07/22/25 21:00 08/21/25 20:59 08/16/25 10:00 100 MG Thiamine HCl 100 mg/Sodium Chloride 50 ml @ 100 mls/hr Q24H IM 07/21/25 15:30 07/21/25 16:25 DC Vancomycin HCl (Vancomycin 1g/ 250ml Kit) 1 gm ONCE STAT IV 07/20/25 21:23 07/20/25 21:26 DC 07/20/25 22:06 1 GM Vasopressin 20 units/Sodium Chloride 100 ml @ 0 mls/hr PROTOCOL IV 07/21/25 00:30 08/03/25 08:27 DC 07/21/25 00:10 9 MLS/HR DIAGNOSTICS / RADIOLOGY: [ ] ASSESSMENT: Suspected Bowel Perforation/ Anastomotic Leak POA Acute cholecystitis, not POA s/p Cholecystotomy tube placement 08/02/2025 Bilious peritonitis s/p Diagnostic laparoscopy, abdominal washout, drain placement and diverting loop ileostomy creation Perisplenic and infrasplenic fluid collection with splenomegaly - suspected abscess s/p drainage with catheter placement Hyponatremia, resolved Bacterial peritonitis [ESBL Ecoli] Cholelithiasis Atrophic vaginitis Hyperkalemia, resolved Iron Deficiency anemia, POA Diabetes Mellitus Type 2 POA Acute Kidney Injury POA, resolved Septic Shock POA, resolved Cirrhosis of liver POA Esophageal Varices Recent Robotic takedown of splenic flexure mobilization, robotic takedown of colovesical fistula with sigmoid colectomy and end-to-end anastomosis surgery PLAN: Bilious peritonitis status post Diagnostic laparoscopy, abdominal washout, drain placement and diverting loop ileostomy creation -Continue close monitoring of the patient -continue physical therapy -No output in CHRIS drain. Follow up with surgery regarding CHRIS drain removal. -Continue Zosyn [day 27] and fluconazole [day 27]. -Probiotics and Fibers have been added for bloating. -Continue Protonix 40mg IV BID - Continue [id number] mcg Q72H , [place] 5 mg q.4h p.r.n.,for pain management - As per surgery, continue methocarbamol and gabapentin. Perisplenic and infrasplenic fluid collection with splenomegaly * CT scan showed perisplenic and infrasplenic fluid collection measuring 6.0 x 6.1 x 8.9 cm, splenomegaly, with spleen measuring 15.2 cm * IR drained the perisplenic and intra splenic fluid with placement of drainage catheter. * Cultures resulted in now growth * Continue Zosyn and fluconazole * Follow ID recommendations Bacterial Peritonitis * Post Surgical patient with Bacterial peritonitis positive for ESBL * Culture and sensitivity shows susceptibility to Zosyn, Gentamicin and Meropenem. * Likely secondary to post-operative intraabdominal infection with risk of ongoing contamination. * Currently patient is on Zosyn (Day 27) * For her continuos pain she is started on Fentanyl 25mcg. Cholelithiasis * Patient complained of upper abdominal pain * Ultrasound abdomen showed: Cirrhotic-appearing liver * Cholelithiasis and biliary sludge with gallbladder distension and Small volume ascites. * Hida scan shows acute cholecystitis. * Per Surgery: IR to be consulted for cholecystostomy tube placement. * IR did a Fluoroscopy and ultrasound-guided placement of cholecystotomy tube and cholecystogram on 08/02/2025. * IR evaluated patient in the laborer salvage for cholecystostomy tube placement. Patient was found to have normally positioned tube with some stones for which the tube was flushed.. Small Bowel Obstruction (Resolved) * Abdominal Xray showed: Dilated small bowel loops are seen in mid abdomen * Pain management(avoid excess opioids if ileus is suspected) * Monitor for resolution vs progression of Ileus/obstruction. 07/29/25 Bowel Perforation, Dehiscence of the anastomosis - Patient had repair of colovesicular fistula with sigmoid colon resection and anastomosis on 07/09/25. - CT abdominal pelvis w/contrast done on 07/20/2025 showed Free air in the upper abdomen is seen, suggesting perforated bowel vs post surgical changes. No obstruction. -underwent Diagnostic laparoscopy, abdominal washout, drain placement and diverting loop ileostomy creation for biliary peritonitis Atrophic vaginitis * Her bleeding is resolved * We did a pelvic examination. * Ordered topical estrogen. * Urinalysis showed cloudy urine, protein 30, trace occult blood, RBC is 11 to 25, WBC is 26 to 50. hyperkalemia, resolved * Today his potassium is 4.2 * Will repeat her labs tomorrow. Iron Deficiency anemia * Hemoglobin today is 8.9. * Anemia panel has been ordered. Results showed Iron 24L, %sat 16.3 and TIBC 147L. 07/30/25 * Received 2 doses of Iron sucrose (venofer) so far Recommend trending Hgb and transfuse as needed to goal Hgb >7 Acute Kidney Injury, Resolved * Creatinine improved * Initial FeNA is 0.1 %, probably secondary to dehydration and NSAIDs overuse. * initial Urine sodium is < 13 and urine creatinine is 132.17. * Avoid nephrotoxic agents, eg. NSAIDS. * Weight patient daily. * Monitor intake and output. Cirrhosis of liver -Patient has a past history of cirrhosis of liver. - Liver functions are within normal limits. -Avoid NSAIDs and high dose acetaminophen. -Maintain appropriate volume of the patient. Supportive measures - Multimodal pain management - Duloxetine started. -Maintain IV fluids, correct electrolytes -Serial abdominal exams -Nursing Executive on avoidance of NSAIDS and other related triggers. -Monitor Vitals and perform morning labs regularly Continue GI prophylaxis with Pantop Continue DVT prophylaxis with SCDs, we will avoid heparin due to history of allergies to porcine ATTESTATION BY PHYSICIAN I have seen and examined the patient. I reviewed the documentation, medical decision making, and treatment plan as noted by the resident physician above. I agree with the findings and plan of care. AYAKA BARR MD, HARSHAVARDHA MD Aug 16, 2025 13:42
[2025-08-16] MEDS: CLINIMIX-E4.25%AA/D5+LYT2000ML 2,000 ML IV ONE (13:54)
--- NOTE | 2025-08-16 14:53 | PN ---
NEPHROLOGY PROGRESS NOTE Date/Time Patient Seen: Aug 16, 2025 SUBJECTIVE: This is a 55-year-old female with a past medical history of diabetes mellitus type 2, liver cirrhosis, esophageal varices. He presented to the emergency room with chief complain of abdominal pain. CT of the abdomen showed moderate small bowel enteritis with free air in the upper abdomen, suggesting perforated bowel versus post surgical changes. No obs truction. S/p diagnostic laparoscopy, abdominal washout, drain placement and diverting loop ileostomy creation with CHRIS drain 10 Indonesian on 07/21 S/P cholecystotomy tube on 08/02 S/P Cholecystogram showed cholecystotomy tube in satisfactory position with multiple large gallstones seen in the gallbladder lumen on 08/09 S/P successful CT guided drainage of left infrasplenic collection on 08/09 Diet is being advanced as tolerated, continues on TPN as per surgery She was noted to have elevated BUN/creatinine We are consulted for renal failure Renal function and electrolytes are stable. Continues on nausea She was seen in the medial floor, in no acute distress No family at the bedside REVIEW OF SYSTEMS: GENERAL: Positive for nausea NEUROLOGIC: Negative for any blurry vision, blind spots, double vision, facial asymmetry, dysphagia, dysarthria, hemiparesis, hemisensory deficits, vertigo, ataxia. HEENT: Negative for any head trauma, neck trauma, neck stiffness, photophobia, phonophobia, sinusitis, rhinitis. CARDIAC: Negative for any chest pain, dyspnea on exertion, paroxysmal nocturnal dyspnea, peripheral edema. PULMONARY: Negative for any shortness of breath, wheezing, COPD, or TB exposure. GASTROINTESTINAL: Negative for any abdominal pain, nausea, vomiting, bright red blood per rectum, melena. GENITOURINARY: Negative for any dysuria, hematuria, incontinence. INTEGUMENTARY: Negative for any rashes, cuts, insect bites. RHEUMATOLOGIC: Negative for any joint pains, photosensitive rashes, history of vasculitis or kidney problems. HEMATOLOGIC: Negative for any abnormal bruising, frequent infections or bleeding. Vital Signs (last 8hr) Date Time Temp Pulse Resp B/P (MAP) Pulse Ox O2 Delivery O2 Flow Rate FiO2 08/16/25 07:42 98.2 77 16 111/59 95 Room Air 21 PHYSICAL EXAM: GENERAL: Alert and oriented x 3. No acute distress. Well-nourished. EYES: EOMI. Anicteric. HENT: Moist mucous membranes. No scleral icterus. No cervical lymphadenopathy. LUNGS: Clear to auscultation bilaterally. No accessory muscle use. CARDIOVASCULAR: Regular rate and rhythm. No murmur. No JVD. ABDOMEN: Soft, non-tender and non-distended. No palpable masses. EXTREMITIES: No edema. Non-tender SKIN: No rashes or lesions. Warm. NEUROLOGIC: No focal neurological deficits. CN II-XII grossly intact, but not individually tested. PSYCHIATRIC: Cooperative. Appropriate mood and affect. Current Medications Medications (Trade) Dose Ordered Sig/Gregory Route Start Time Stop Time Status Last Admin Dose Admin Albumin Human 100 ml @ 0 mls/hr ONCE IV 07/25/25 12:00 07/26/25 11:59 DC 07/25/25 13:43 100 MLS/HR Cyclobenzaprine HCl (Cyclobenzaprine HCl) 5 mg TID PO 07/25/25 14:00 07/26/25 14:00 DC 07/26/25 14:19 5 MG Fluconazole/ Sodium Chloride (DiFLUCan 200 MG/ NS 100 ML) 200 mg Q24H IVPB 07/21/25 21:00 08/20/25 20:59 07/25/25 20:47 200 MG Furosemide (LASix 20MG TAB) 20 mg DAILY PO 07/25/25 11:00 08/24/25 10:59 07/26/25 08:56 20 MG Insulin Human Regular (humuLIN R 100 UNIT/ML 3ML) INSULIN SLIDING SCAL... ACHS SQ 07/21/25 07:30 08/20/25 07:29 07/22/25 20:40 3 UNIT Lactated Ringer's 1,000 ml @ 75 mls/hr [id number] IV 07/21/25 00:00 07/21/25 13:17 DC 07/21/25 02:57 75 MLS/HR Lactated Ringer's 1,000 ml @ 75 mls/hr [id number] IV 07/21/25 13:30 07/24/25 11:09 DC 07/24/25 09:27 75 MLS/HR Lactobacillus Rhamnosus ([facility] [employer]) 1 each DAILY20 PO 07/26/25 20:00 08/25/25 19:59 Metronidazole/ Sodium Chloride (flaGYL) 500 mg Q8H IV 07/21/25 14:00 07/21/25 13:40 DC Norepinephrine 250 ml @ 0 mls/hr PROTOCOL IV 07/20/25 23:30 08/19/25 23:29 07/21/25 10:56 18.45 MLS/HR Pantoprazole Sodium (PROTonix 40MG INJ) 40 mg BID IV 07/26/25 21:00 08/20/25 08:59 Pantoprazole Sodium (PROTonix 40MG INJ) 40 mg DAILY IV 07/21/25 09:00 07/26/25 09:31 DC 07/26/25 08:55 40 MG Pharmacy Profile Note (Pharmacy Communication) 1 each ONCE MISC 07/21/25 15:30 07/21/25 15:16 DC Piperacillin Sod/ Tazobactam Sod 50 ml @ 200 mls/hr ONCE STAT IVPB 07/20/25 19:15 07/20/25 19:29 DC 07/20/25 20:32 200 MLS/HR Piperacillin Sod/ Tazobactam Sod (Zosyn 3.375gm+NS 50ml) 3.375 gm Q12H IV 07/21/25 00:00 07/31/25 00:00 07/26/25 12:10 3.375 GM Psyllium Hydrophilic Mucilloid (Metamucil) 1 tbs BID PO 07/26/25 21:00 08/25/25 20:59 Sodium Bicarbonate 150 meq/Sodium Chloride 1,150 ml @ 0 mls/hr Q0M IVP 07/21/25 14:00 07/26/25 09:31 DC Spironolactone (Aldactone 25mg) 25 mg BID PO 07/25/25 21:00 07/26/25 09:01 DC 07/26/25 08:56 25 MG Thiamine HCl (Vitamin B-1) 100 mg DAILY IVP 07/22/25 21:00 08/21/25 20:59 07/26/25 08:55 100 MG Thiamine HCl 100 mg/Sodium Chloride 50 ml @ 100 mls/hr Q24H IM 07/21/25 15:30 07/21/25 16:25 DC Vancomycin HCl (Vancomycin 1g/ 250ml Kit) 1 gm ONCE STAT IV 07/20/25 21:23 07/20/25 21:26 DC 07/20/25 22:06 1 GM Vasopressin 20 units/Sodium Chloride 100 ml @ 0 mls/hr PROTOCOL IV 07/21/25 00:30 08/20/25 00:29 07/21/25 00:10 9 MLS/HR LABORATORY: [ ] Hematology Labs: Test 08/16/25 04:10 Range/Units White Blood Count 6.0 # 4.8-10.8 K/uL Red Blood Count 3.04 L 4.00-5.50 MIL/uL Hemoglobin 9.0 L 12.0-16.0 g/dL Hematocrit 28.0 L 36-48 % Mean Corpuscular Volume 92.1 79-99 fL Mean Corpuscular Hemoglobin 29.6 27.0-33.0 pg Mean Corpuscular Hemoglobin Concent 32.1 32.0-36.0 g/dL Red Cell Distribution Width 17.5 H 11.0-15.5 % Platelet Count 218 130-400 K/uL Mean Platelet Volume 9.9 7.5-10.5 fL Immature Granulocyte % (Auto) 1.3 H 0-1 % Neutrophils (%) (Auto) 71.8 40.0-77.0 % Lymphocytes (%) (Auto) 12.9 L 21.0-51.0 % Monocytes (%) (Auto) 10.0 3.0-13.0 % Eosinophils (%) (Auto) 3.5 0.0-8.0 % Basophils (%) (Auto) 0.5 0.0-5.0 % Neutrophils # (Auto) 4.3 1.8-7.7 K/uL Lymphocytes # (Auto) 0.8 L 1.0-4.8 K/uL Monocytes # (Auto) 0.6 0.1-1.0 K/uL Eosinophils # (Auto) 0.21 0.00-0.70 K/uL Basophils # (Auto) 0.03 0.00-0.20 K/uL Absolute Immature Granulocyte (auto 0.08 0-1 K/uL Nucleated Red Blood Cells 0.0 0.0-0.19 % Chemistry Labs: Test 08/16/25 10:57 08/16/25 04:10 Range/Units Whole Blood Glucose 132 H 70-110 MG/DL Sodium Level 133 L 136-145 mmol/L Potassium Level 4.3 3.5-5.1 mmol/L Chloride Level 103 101-111 mmol/L Carbon Dioxide Level 21 21-32 mmol/L Blood Urea Nitrogen 15 7-18 mg/dL Creatinine 0.6 0.5-1.0 mg/dL Glomerular Filtration Rate Calc 105 >90 mL/min Random Glucose 134 H 70-105 mg/dL Total Calcium 8.8 8.5-10.1 mg/dL Total Bilirubin 0.4 0.2-1.0 mg/dL Aspartate Amino Transf (AST/SGOT) 38 H 10-37 U/L Alanine Aminotransferase (ALT/SGPT) 14 12-78 U/L Alkaline Phosphatase 150 H 50-136 U/L C-Reactive Protein, Quantitative 16.10 H 0.5-3.0 mg/L Total Protein 7.0 6.0-8.3 g/dL Albumin 2.4 L 3.5-5.0 g/dL DIAGNOSTICS / RADIOLOGY: [place] [address] [place] [id number] IMAGING REPORT Signed PATIENT: DALLAS BUCHANAN MR#: [id number] : 1970 SEX: F AGE: 55 LOCATION: [facility] ORDER 1 STATUS: ADM IN REPORT#: [id number] SERVICE REASON: picc line placement ORDERING PHYSICIAN: AYAKA BARR MD PROCEDURE: CXR1VW - CHEST 1VW EXAM: CR Chest, single view. CLINICAL HISTORY: PICC line placement. COMPARISON: Prior chest radiograph dated July 22, 2025 FINDINGS: Left-sided PICC line placement with tip in the region of the superior vena cava. Mild cardiomegaly. An ill-defined soft tissue in the superior mediastinum possibility of aortic arch aneurysm, is not excluded. The lungs show no infiltrate or other acute findings. No pleural effusion or pneumothorax. No acute osseous abnormality. IMPRESSION: Left-sided PICC line placement with tip in the region of the superior vena cava. Mild cardiomegaly. An ill-defined soft tissue in the superior mediastinum possibility of aortic arch aneurysm, is not excluded. May consider further evaluation with contrast-enhanced CT thorax. Compared to the prior study, there is no interval resolution of the subsegmental atelectasis in the right lower lobe, interval removal of the nasogastric tube, and interval placement of the left-sided PICC catheter. /[place] DICTATED BY: ELDON MILLER Jr., MD DATE: 08/11/25824 ELECTRONICALLY SIGNED BY: ELDON MILLER Jr., MD DATE: 08/11/25824 PATIENT: DALLAS BUCHANAN MR#: [id number] : 1970 SEX: F AGE: 55 LOCATION: [facility] ORDER 154 STATUS: ADM IN REPORT#: [id number] SERVICE 9 REASON: Aspiration of perisplenic fluid noted on CT ORDERING PHYSICIAN: BENEDICTO OBRIEN Jr. PROCEDURE: GUID NDL - CT GUIDE NDL PLCMT IR CT GUIDE NDL PLCMT IR HISTORY: Aspiration of perisplenic fluid noted on CT infrasplenic fluid collection drainage . TECHNIQUE: Images from prior studies reviewed. Informed consent was obtained after explaining the procedure and potential complications to the patient. Time out performed. The patient was placed prone on the CT couch and images of the abdomen obtained. The left flank draped in sterile fashion. Local anesthesia was applied and under CT-fluoroscopy guidance, a 19-gauge needle introducer was advanced through the abdominal wall and into a left infrasplenic fluid collection in the left hemiabdomen. Then, over a wire the tract was dilated to accommodate a 8 Indonesian APDL catheter, which was left coiled within the collection. Completion images reveal no hemorrhage. Patient tolerated the procedure well and was discharged from the department in good condition. Approximately 10 cc of fluid mL of fluid sent for cultures. Conscious sedation provided by a registered nurse who monitored the patient's vital signs throughout and after the procedure. MEDICATIONS: Fentanyl 100 mcg IV and Versed 2 mg IV IMPRESSION: Successful CT guided drainage of left infrasplenic collection. DICTATED BY: GREER FIORE MD DATE: 08/10/25927 ELECTRONICALLY SIGNED BY: GREER FIORE MD DATE: 08/10/25937 PATIENT: DALLAS BUCHANAN MR#: [id number] : 1970 SEX: F AGE: 55 LOCATION: [facility] ORDER 36 STATUS: ADM IN REPORT#: [id number] SERVICE 133 REASON: epigastric pain. not tolerating meals. ORDERING PHYSICIAN: SUSAN JHAVERI MD PROCEDURE: ABD PEL W - CT ABDOMEN/PELVIS W/CONTRAST EXAM: CT Abdomen and Pelvis with IV contrast CLINICAL HISTORY: epigastric pain. not tolerating meals. TECHNIQUE: Axial computed tomography images of the abdomen and pelvis with intravenous contrast. CONTRAST: with intravenous contrast. COMPARISON: Compared with the previous CT dated 07/20 and USG dated 07/29 FINDINGS: LUNG BASES: Grossly stable atelectasis and scarring at the lung bases. LIVER: Unremarkable. GALLBLADDER AND BILE DUCTS: The gallbladder is decompressed with a cholecystostomy tube in situ. PANCREAS: Unremarkable. SPLEEN: The spleen is enlarged in size, measuring 15.2 cm. ADRENAL GLANDS: Unremarkable. KIDNEYS, URETERS, AND BLADDER: No hydronephrosis or nephrolithiasis. No ureteral calculi. The urinary bladder is unremarkable. STOMACH AND BOWEL: The ileostomy site appears unremarkable. Interval resolution of previously seen moderate small bowel enteritis. No obstruction. APPENDIX: No CT evidence for appendicitis. PERITONEUM: Near complete interval resolution of previously seen moderate ascites in the abdomen and pelvis. Collection in the perisplenic and infra-splenic region measuring 6.0 x 6.1 x 8.9 cm. Interval resolution of previously seen pneumoperitoneum. Diffuse mesenteric fat stranding, likely postoperative changes. LYMPH NODES: No lymphadenopathy. REPRODUCTIVE: Unremarkable as visualized. VASCULATURE: No aortic aneurysm. ABDOMINAL WALL AND SOFT TISSUES: Interval resolution of previously seen subcutaneous emphysema in the anterior abdominal wall and left lateral chest wall. Abdominal drain in situ with tip in the pelvis. BONES: No fracture or suspicious osseous abnormality. IMPRESSION: 1. Perisplenic and infrasplenic fluid collection measuring 6.0 x 6.1 x 8.9 cm. 2. Splenomegaly, with spleen measuring 15.2 cm. 3. Cholecystostomy tube in situ with decompressed gallbladder. 4. Abdominal drain in situ with tip in the pelvis. 5. No acute findings in the remainder of the abdomen and pelvis. /[place] DICTATED BY: ELDON MILLER Jr., MD DATE: 08/04/251636 ELECTRONICALLY SIGNED BY: ELDON MILLER Jr., MD DATE: 08/04/251636 PATIENT: DALLAS BUCHANAN MR#: [id number] : 1970 SEX: F AGE: 55 LOCATION: [facility] ORDER 1524 STATUS: ADM IN REPORT#: [id number] SERVICE 152 REASON: cholecystitis ORDERING PHYSICIAN: BENEDICTO OBRIEN Jr. PROCEDURE: HIDA PHARM - NM HIDA/HEPATOBILI W/ PHARMACO EXAM: HIDA scan. INDICATION: Severe RUQ Pain to rule out cholecystitis. REFERENCE EXAMINATION: USG July 29, 2025. TECHNIQUE: Sequential images of the abdomen were obtained in the anterior projection after IV administration of 6.0 mCi of Tc99m Mebrofenin. FINDINGS: Tracer activity throughout the liver is homogeneous without focal defects. There is prompt excretion of the pharmaceutical into the bile ducts and into the small bowel, without evidence of obstruction. There is no visualization of the gallbladder at the conclusion of the examination. IMPRESSION: Scintigraphic findings are compatible with acute cholecystitis. /[place] DICTATED BY: ELDON MILLER Jr., MD DATE: 08/01/25 101 ELECTRONICALLY SIGNED BY: ELDON MILLER Jr., MD DATE: 08/01/25 101 PATIENT: DALLAS BUCHANAN MR#: [id number] : 1970 SEX: F AGE: 55 LOCATION: [facility] ORDER 10 STATUS: ADM IN REPORT#: [id number] SERVICE 09 REASON: ABD PAIN ORDERING PHYSICIAN: MUNOZ,NIKKI E SQL DEVELOPER PROCEDURE: ABD 1VW - ABD 1VW EXAM: CR Abdomen, 1 view. CLINICAL HISTORY: Pain. COMPARISON: None provided. FINDINGS: Dilated small bowel loops are seen in mid abdomen. There is a density in the pelvis which may represent a send drainage catheter. No free air is evident. No abnormal calcification. No aggressive appearing osseous lesion. IMPRESSION: Dilated small bowel loops are seen in mid abdomen. Density in the pelvis which may represent a send drainage catheter. /[place] DICTATED BY: TOBI LEAHY MD DATE: 07/29/25 103 ELECTRONICALLY SIGNED BY: TOBI LEAHY MD DATE: 07/29/25 103 PATIENT: DALLAS BUCHANAN MR#: [id number] : 1970 SEX: F AGE: 55 LOCATION: [facility] ORDER 18 STATUS: ADM IN REPORT#: [id number] SERVICE 15 REASON: Liver cirrhosis ORDERING PHYSICIAN: LISET DOUGLAS MD PROCEDURE: ABDOMEN - US ABDOMINAL COMPLETE EXAM: US Abdomen complete CLINICAL HISTORY: Liver cirrhosis TECHNIQUE: Real-time ultrasound of the abdomen (complete) with image documentation. COMPARISON: None provided. FINDINGS: LIVER: Liver measures 12.3 cm with a heterogeneous coarse echotexture. GALLBLADDER: Gallbladder contains stones and sludge. Gallbladder is distended. COMMON BILE DUCT: No dilation. PANCREAS: Pancreas not well-visualized due to overlying bowel gas KIDNEYS: Normal renal contours. No renal mass or calculus. No hydronephrosis. SPLEEN: Normal in size and echogenicity. No mass identified. AORTA: No aneurysm. IVC: Unremarkable as visualized. MISCELLANEOUS: Small amount of abdominal ascites. IMPRESSION: 1. Cirrhotic-appearing liver. 2. Cholelithiasis and biliary sludge with gallbladder distension. 3. Small volume ascites. /[place] DICTATED BY: CYNTHIA JULIAN MD DATE: 07/29/25 105 ELECTRONICALLY SIGNED BY: CYNTHIA JULIAN MD DATE: 07/29/25 1056 PATIENT: DALLAS BUCHANAN MR#: [id number] : 1970 SEX: F AGE: 55 LOCATION: 2BH ORDER 1108 STATUS: ADM IN REPORT#: [id number] SERVICE 1106 REASON: sob ORDERING PHYSICIAN: PREET BOSTON MD PROCEDURE: CXR1VW - CHEST 1VW CHEST 1VW REASON: sob COMPARISON: Study from 07/21/2025 is available. FINDINGS: Single view of the chest was obtained. Lungs are clear. Heart size is normal. There is no pulmonary vascular congestion. There is a right-sided PIC catheter with tip in superior vena cava. There is a nasogastric tube with the tip in the fundus of the stomach. Mediastinum and bony thorax appear unremarkable. IMPRESSION: 1. No acute cardiopulmonary process 2. The support lines are in satisfactory position.. DICTATED BY: GREER FIORE MD DATE: 07/22/25 135 ELECTRONICALLY SIGNED BY: GREER FIORE MD DATE: 07/22/25 135 PATIENT: DALLAS BUCHANAN MR#: [id number] : 1970 SEX: F AGE: 55 LOCATION: 2BH ORDER 0100 STATUS: ADM IN REPORT#: [id number] SERVICE 0100 REASON: PICC LINE ORDERING PHYSICIAN: HEATHER LEACH APRN PROCEDURE: CXR1VW - CHEST 1VW EXAM: CR Chest, single view. CLINICAL HISTORY: PICC line COMPARISON: Prior same day chest radiograph. FINDINGS: Right-sided PICC catheter with tip in the cavoatrial junction. Subsegmental atelectasis in the right lower lobe. No evidence of pleural effusion or pneumothorax. The cardiomediastinal silhouette is within normal limits. No acute osseous abnormality. IMPRESSION: Right-sided PICC catheter with tip in the cavoatrial junction. Subsegmental atelectasis in the right lower lobe. No evidence of pleural effusion or pneumothorax. Compared to the prior study, there is interval placement of the right-sided PICC line and interval resolution of the subsegmental atelectasis in the left lower lobe. /[place] DICTATED BY: ELDON MILLER Jr., MD DATE: 07/21/25816 ELECTRONICALLY SIGNED BY: ELDON MILLER Jr., MD DATE: 07/21/25816 PATIENT: DALLAS BUCHANAN MR#: [id number] : 1970 SEX: F AGE: 55 LOCATION: [facility] ORDER 14 STATUS: [facility] REPORT#: [id number] SERVICE 12 REASON: CHEST PAIN/COUGH ORDERING PHYSICIAN: ALHAJI SHINE NP PROCEDURE: CXR1VW - CHEST 1VW EXAM: XR Chest, 1 View. CLINICAL HISTORY: 55 year old female with chest pain and cough. COMPARISON: None provided. FINDINGS: LUNGS: The lungs demonstrate evidence of atelectasis. PLEURAL SPACES: A small right pleural effusion is present. HEART: The heart size is normal. BONES: No acute osseous abnormality. IMPRESSION: 1. Small right pleural effusion and right lung base atelectasis. /[place] DICTATED BY: EDWIGE LEDESMA MD DATE: 07/20/252046 ELECTRONICALLY SIGNED BY: EDWIGE LEDESMA MD DATE: 07/20/252046 PATIENT: DALLAS BUCHANAN MR#: [id number] : 1970 SEX: F AGE: 55 LOCATION: [facility] ORDER 14 STATUS: REG ER REPORT#: [id number] SERVICE 12 REASON: Abdominal Pain ORDERING PHYSICIAN: ALHAJI SHINE NP PROCEDURE: ABD PEL W - CT ABDOMEN/PELVIS W/CONTRAST ADDENDUM REPORT ADDENDUM: Results were shared by telephone at 23:23 pm on 07-20-2025 and acknowledged by Pt nurse Ms. MetzSHIN ASHUTOSH. /[place] EXAM: CT Abdomen and Pelvis with Intravenous Contrast CLINICAL HISTORY: 55-year-old female with abdominal pain. TECHNIQUE: Axial computed tomography images of the abdomen and pelvis with intravenous contrast. Dose reduction technique was used including one or more of the following: automated exposure control, adjustment of mA and kV according to patient size, and/or iterative reconstruction. CONTRAST: Omnipaque 350, 75 mL COMPARISON: None provided. FINDINGS: LUNG BASES: Atelectasis and scarring at the lung bases. LIVER: Unremarkable. GALLBLADDER AND BILE DUCTS: Tiny gallstone seen. PANCREAS: Unremarkable. SPLEEN: Unremarkable. ADRENAL GLANDS: Unremarkable. KIDNEYS, URETERS, AND BLADDER: Dueñas catheter seen in the bladder lumen. No hydronephrosis or nephrolithiasis. No ureteral calculi. STOMACH AND BOWEL: Edema or loops of small bowel suggesting moderate small bowel enteritis. Free air in the upper abdomen is seen, suggesting perforated bowel. No obstruction. APPENDIX: No CT evidence for appendicitis. PERITONEUM: Moderate ascites in the abdomen and pelvis. No free air under the diaphragm. LYMPH NODES: No lymphadenopathy. REPRODUCTIVE: Unremarkable as visualized. VASCULATURE: No aortic aneurysm. ABDOMINAL WALL AND SOFT TISSUES: There is air in the subcutaneous soft tissue seen anteriorly, suggesting recent postsurgical changes; please correlate with surgical history. BONES: No fracture or suspicious osseous abnormality. IMPRESSION: 1. Moderate small bowel enteritis with free air in the upper abdomen, suggesting perforated bowel versus post surgical changes. No obstruction. 2. Moderate ascites in the abdomen and pelvis. 3. Air in the subcutaneous soft tissue anteriorly, suggesting recent postsurgical changes; please correlate with surgical history. /[place] DICTATED BY: EDWIGE LEDESMA MD DATE: 07/20/25 9887 ELECTRONICALLY SIGNED BY: DATE: EXAM: CT Abdomen and Pelvis with Intravenous Contrast CLINICAL HISTORY: 55-year-old female with abdominal pain. TECHNIQUE: Axial computed tomography images of the abdomen and pelvis with intravenous contrast. Dose reduction technique was used including one or more of the following: automated exposure control, adjustment of mA and kV according to patient size, and/or iterative reconstruction. CONTRAST: Omnipaque 350, 75 mL COMPARISON: None provided. FINDINGS: LUNG BASES: Atelectasis and scarring at the lung bases. LIVER: Unremarkable. GALLBLADDER AND BILE DUCTS: Tiny gallstone seen. PANCREAS: Unremarkable. SPLEEN: Unremarkable. ADRENAL GLANDS: Unremarkable. KIDNEYS, URETERS, AND BLADDER: Dueñas catheter seen in the bladder lumen. No hydronephrosis or nephrolithiasis. No ureteral calculi. STOMACH AND BOWEL: Edema or loops of small bowel suggesting moderate small bowel enteritis. Free air in the upper abdomen is seen, suggesting perforated bowel. No obstruction. APPENDIX: No CT evidence for appendicitis. PERITONEUM: Moderate ascites in the abdomen and pelvis. No free air under the diaphragm. LYMPH NODES: No lymphadenopathy. REPRODUCTIVE: Unremarkable as visualized. VASCULATURE: No aortic aneurysm. ABDOMINAL WALL AND SOFT TISSUES: There is air in the subcutaneous soft tissue seen anteriorly, suggesting recent postsurgical changes; please correlate with surgical history. BONES: No fracture or suspicious osseous abnormality. IMPRESSION: 1. Moderate small bowel enteritis with free air in the upper abdomen, suggesting perforated bowel versus post surgical changes. No obstruction. 2. Moderate ascites in the abdomen and pelvis. 3. Air in the subcutaneous soft tissue anteriorly, suggesting recent postsurgical changes; please correlate with surgical history. /[place] DICTATED BY: EDWIGE LEDESMA MD DATE: 07/20/252317 ELECTRONICALLY SIGNED BY: EDWIGE LEDESMA MD DATE: 07/20/252317 ASSESSMENT: Acute kidney injury Hyponatremia Bacterial peritonitis Perisplenic and infrasplenic fluid collection with splenomegaly Cholelithiasis 2 mm perforation of the colonic anastomosis Anastomosis leak Bilious peritonitis S/p Diagnostic laparoscopy, abdominal washout, drain placement and diverting loop ileostomy creation Atrophic vaginitis Anemia Diabetes Mellitus Type 2 Septic Shock Cirrhosis of liver Oesophageal Varices PLAN: Labs, diagnostic, radiologic exams reviewed and interpreted by myself and supervising physician. We have reviewed external records in detail TPN/diet as per primary team Pain management as per Primary team/surgery Require close monitoring of renal function and electrolytes Order CBC, CMP, and electrolytes in am Continue with antibiotics as per ID BiPAP as necessary, for respiratory distress Monitor blood pressure adjust medication doses as needed Avoid hypotensive episodes May use Dilaudid 0.5 mg IV every 6 hours as needed for severe pain Monitor blood sugars Strict intake, output, and daily weight should be monitored Please renally adjust medications Avoid nephrotoxic and nonsteroidal drugs Avoid contrast if possible Will continue to monitor renal function, anemia, electrolytes Treatment plan discussed with patient Questions were answered We have discussed with the other team physicians in detail about the care plan We will continue to monitor the patient closely ATTESTATION BY PHYSICIAN I have seen and examined the patient. I reviewed the documentation, medical decision making, and treatment plan as noted by the mid-level provider above. I agree with the findings and plan of care. CIELO PORTILLO MD, [facility] Aug 16, 2025 14:53
--- NOTE | 2025-08-16 14:56 | NUR ---
Nutritional f/u Note: Chart, meds, and labs Reviewed. Pt diet advanced to GI soft. Pt reports has not been able to eat too much because of the nausea. Wt Status: current 60kg previous wt 60kg Recommend: -Ensure clear w/ trays -low residue diet to diet order -Ensure clear to diet order -Encourage PO Intake and PO supplement intake -RD to provide further recommendations based on clinical progress. -Monitor feeding tolerance, %, wt, and labs -If No BM >3days consider bowel stimulant. - Please notify RD if additional nutrition concerns arise. Addendum: 08/16/25 at [address] Amended: Links added.
[2025-08-16] MEDS ORDERED: PHARMACY COMMUNICATION MISC SCH (16:00)
--- NOTE | 2025-08-16 22:04 | PN ---
INFECTIOUS DISEASE PROGRESS NOTE Date of Service: Aug 16, 2025 SUBJECTIVE: Patient was seen and examined at bedside in room 432. Patient is awake, alert and oriented x3. Patient is resting comfortably in bed. Patient's diet has been advanced to GI soft diet and the TPN has been decreased to 40 mL/hour, per report however patient continues with abdominal pain and nausea. General surgery has placed patient on scheduled antiemetics every 6 hours around the clock. The CHRIS drain has been removed. No issues with the Ileostomy. Remains afebrile, temperature is 98.2. We will continue on Zosyn and fluconazole. We will continue to monitor patient. PHYSICAL EXAM EYES: Anicteric. Pupils equal and reactive. HENT: No oral thrush seen, moist Oral mucosa. NECK: Supple, no JVD or thyromegaly. LUNGS: Good air entry. No rales, no rhonchi. CARDIOVASCULAR: S1, S2 regular. No murmur heard. ABDOMEN: Soft, non tender, bowel sounds present, no organomegaly. Left Perisplenic abscess percutaneous drainage catheter. Right ileostomy. Right c holecystostomy tube. CENTRAL NERVOUS SYSTEM: Awake, alert, oriented x 3. SKIN: No rashes, no swelling. LYMPHATICS: No peripheral lymphadenopathy. MUSCULOSKELETAL: No joint swelling, erythema or tenderness. EXTREMITIES: No cyanosis or clubbing. BACK: No deformity, no pressure ulcer. GENITOURINARY: No dysuria or hematuria. Vital Sign (Last 12 Hours) 08/16/25 08/16/25 15:46 20:00 Temp 98.6 97.9 Pulse 88 82 Resp 18 16 B/P (MAP) 125/73 113/59 Pulse Ox 90 95 O2 Delivery Room Air Room Air Intake & Output (last 24hrs) 08/15/25 08/15/25 08/16/25 14:59 22:59 06:59 Intake Total 50.0 ml 1810.0 ml Output Total 300 ml 1325 ml 2110 ml Balance -250.0 ml -1325 ml -300.0 ml LABS: Laboratory: Test 08/16/25 19:32 08/16/25 04:10 Range/Units Whole Blood Glucose 139 H 70-110 MG/DL White Blood Count 6.0 # 4.8-10.8 K/uL Red Blood Count 3.04 L 4.00-5.50 MIL/uL Hemoglobin 9.0 L 12.0-16.0 g/dL Hematocrit 28.0 L 36-48 % Mean Corpuscular Volume 92.1 79-99 fL Mean Corpuscular Hemoglobin 29.6 27.0-33.0 pg Mean Corpuscular Hemoglobin Concent 32.1 32.0-36.0 g/dL Red Cell Distribution Width 17.5 H 11.0-15.5 % Platelet Count 218 130-400 K/uL Mean Platelet Volume 9.9 7.5-10.5 fL Immature Granulocyte % (Auto) 1.3 H 0-1 % Neutrophils (%) (Auto) 71.8 40.0-77.0 % Lymphocytes (%) (Auto) 12.9 L 21.0-51.0 % Monocytes (%) (Auto) 10.0 3.0-13.0 % Eosinophils (%) (Auto) 3.5 0.0-8.0 % Basophils (%) (Auto) 0.5 0.0-5.0 % Neutrophils # (Auto) 4.3 1.8-7.7 K/uL Lymphocytes # (Auto) 0.8 L 1.0-4.8 K/uL Monocytes # (Auto) 0.6 0.1-1.0 K/uL Eosinophils # (Auto) 0.21 0.00-0.70 K/uL Basophils # (Auto) 0.03 0.00-0.20 K/uL Absolute Immature Granulocyte (auto 0.08 0-1 K/uL Nucleated Red Blood Cells 0.0 0.0-0.19 % Sodium Level 133 L 136-145 mmol/L Potassium Level 4.3 3.5-5.1 mmol/L Chloride Level 103 101-111 mmol/L Carbon Dioxide Level 21 21-32 mmol/L Blood Urea Nitrogen 15 7-18 mg/dL Creatinine 0.6 0.5-1.0 mg/dL Glomerular Filtration Rate Calc 105 >90 mL/min Random Glucose 134 H 70-105 mg/dL Total Calcium 8.8 8.5-10.1 mg/dL Total Bilirubin 0.4 0.2-1.0 mg/dL Aspartate Amino Transf (AST/SGOT) 38 H 10-37 U/L Alanine Aminotransferase (ALT/SGPT) 14 12-78 U/L Alkaline Phosphatase 150 H 50-136 U/L C-Reactive Protein, Quantitative 16.10 H 0.5-3.0 mg/L Total Protein 7.0 6.0-8.3 g/dL Albumin 2.4 L 3.5-5.0 g/dL ASSESSMENT: Acute cholecystitis, s/p cholecystostomy tube placement on 08/02/2025. Concern for cholecystostomy tube dislodgement status post cholecystogram with findings of multiple gallstones on 08/09/2025. Perisplenic abscess, s/p CT-guided drainage placement on 08/09/2025. Persistent abdominal pain, s/p EGD with findings acute gastritis. Septic shock, resolving. Generalized peritonitis with ESBL and E coli infection. Infection with multidrug resistant organism. Hypoalbuminemia, improving. Suspected bowel perforation, s/p diagnostic laparoscopy, abdominal washout, ileostomy creation and CHRIS drain placement on 07/21/2025. Diabetes mellitus. Recent colovesical fistula repair with sigmoid colon resection and anastomosis on 07/09/2025 PLAN: Continue Zosyn. Continue fluconazole. Continue pain management. Continue GI prophylaxis. Continue antidiabetics. Continue nutritional support, currently on GI soft and the PPN rate has been decreased. Continue drainage tube care. Continue physical therapy. This case was reviewed and discussed with my supervising physician Dr. Roger and the above assessment and plan was formulated and agreed upon. ATTESTATION BY PHYSICIAN I have seen and examined the patient. I reviewed the documentation, medical decision making, and treatment plan as noted by the mid-level provider above. I agree with the findings and plan of care. AMIE ROGER MD, M[facility]TA L [facility] Aug 16, 2025 22:04
[2025-08-17] VITALS (8 sets, daily range): BP systolic 103–139; BP diastolic 60–74; PULSE 62–85; RESP 16–20; TEMP 97.6–98.2; O2SAT 93–96
[2025-08-17] MEDS: CLINIMIX-E4.25%AA/D5+LYT2000ML 2,000 ML IV ONE (01:40)
[2025-08-17 03:59] LABS: IMMATURE GRANULOCYTE ABSOLUTE 0.16 K/uL (0-1); NUCLEATED RED BLOOD CELLS 0.0 % (0.0-0.19); PLATELET COUNT (AUTO) 193 K/uL (130-400); RED BLOOD CELL COUNT(AUTO) 3.05 MIL/uL (4.00-5.50); RED CELL DISTRIBUTION WIDTH 17.2 % (11.0-15.5); WHITE BLOOD COUNT (AUTO) 5.5 K/uL (4.8-10.8)
[2025-08-17 04:12] LABS: CREATININE 0.5 mg/dL (0.5-1.0); GLOMERULAR FILTR. RATE CALC 109.0 mL/min (>90); GLUCOSE,RANDOM 112.0 mg/dL (70-105); SODIUM SERUM 128.0 mmol/L (136-145); UREA NITROGEN, BLOOD 12.0 mg/dL (7-18)
--- NOTE | 2025-08-17 12:00 | NUR ---
PHYSICIAN ROUNDING BENEDICTO RIZZO ON UNIT. CLINIMIX RATE DECREASED TO 20 ML/HR.
--- NOTE | 2025-08-17 12:01 | PN ---
This is a 55-year-old female status post laparoscopic washout and loop ileostomy Interval history: This is a 55-year-old female seen in her room resting Nausea and reflux better controlled today Patient reporting better abdominal discomfort Patient tolerating diet TPN lower to 40 mL/hour Labs and vitals stable Physical exam General: Awake alert and oriented Heart: Regular rate and rhythm} Lungs: Clear to auscultation no distress Abdomen: [Soft, nontender, nondistended ostomy productive percutaneous drain in left upper quadrant unremarkable cholecystostomy tube minimal output Assessment : This is a 55-year-old female status post laparoscopic washout and loop ileostomy Plan: At this point in time we will continue with current Zofran regimen TPN to be dropped to 20 mL/hour Patient reminded of the importance of being able to eat Possible discharge later this week Surgical team to follow patient closely nursing report any further acute events Surgical case has been discussed with my supervising physician in the above plan was formulated and agreed upon We appreciate the hospitalist team for us to participate in patient's care. Greater than 45 minutes of time spent patient, reviewing chart, working on documentation Vitals/Labs Vital Signs Date Time Temp Pulse Resp B/P (MAP) Pulse Ox O2 Delivery O2 Flow Rate FiO2 08/17/25 07:52 98.2 84 19 109/63 96 Room Air 08/16/25 20:45 0 21 Laboratory Tests 08/17/25 03:40 Medications Current Medications Sodium Chloride 1,000 ml @ 0 mls/hr ONCE ONCE IV; Start 07/20/25 at 18:30; Stop 07/20/25 at 18:31; Status DC Piperacillin Sod/ Tazobactam Sod 50 ml @ 200 mls/hr ONCE STAT IVPB Last administered on 07/20/25at 20:32; Start 07/20/25 at 19:15; Stop 07/20/25 at 19:29; Status DC Sodium Chloride 2,109 ml @ 703 mls/hr ONCE ONCE IV Last administered on 07/20/25at 20:28; Start 07/20/25 at 19:30; Stop 07/20/25 at 22:29; Status DC Iohexol 75 ml STK-MED ONCE IV; Start 07/20/25 at 20:31; Stop 07/20/25 at 20:31; Status DC Vancomycin HCl 1 gm ONCE STAT IV Last administered on 07/20/25at 22:06; Start 07/20/25 at 21:23; Stop 07/20/25 at 21:26; Status DC Morphine Sulfate 4 mg ONCE ONCE IVP Last administered on 07/20/25at 23:15; Start 07/20/25 at 23:30; Stop 07/20/25 at 23:31; Status DC Ondansetron HCl 4 mg ONCE ONCE IVP Last administered on 07/20/25at 23:14; Start 07/20/25 at 23:30; Stop 07/20/25 at 23:31; Status DC Norepinephrine 250 ml @ 0 mls/hr PROTOCOL IV Last administered on 07/21/25at 10:56; Start 07/20/25 at 23:30; Stop 08/03/25 at 08:27; Status DC Piperacillin Sod/ Tazobactam Sod 3.375 gm Q12H IV Last administered on 07/30/25at 23:55; Start 07/21/25 at 00:00; Stop 07/31/25 at 00:00; Status DC Acetaminophen 650 mg Q6H PRN RC; Start 07/21/25 at 00:00; Stop 07/27/25 at 16:22; Status DC Pantoprazole Sodium 40 mg DAILY IV Last administered on 07/26/25at 08:55; Start 07/21/25 at 09:00; Stop 07/26/25 at 09:31; Status DC Ondansetron HCl 4 mg Q6H PRN IV; Start 07/21/25 at 00:00; Stop 07/21/25 at 13:18; Status DC Morphine Sulfate 2 mg Q4H PRN IVP Last administered on 07/21/25at 04:46; Start 07/21/25 at 00:30; Stop 07/21/25 at 13:18; Status DC Lactated Ringer's 1,000 ml @ 75 mls/hr [id number] IV Last administered on 07/21/25at 02:57; Start 07/21/25 at 00:00; Stop 07/21/25 at 13:17; Status DC Insulin Human Regular INSULIN SLIDING SCAL... ACHS SQ Last administered on 08/12/25at 22:36; Start 07/21/25 at 07:30; Stop 08/20/25 at 07:29 Vasopressin 20 units/Sodium Chloride 100 ml @ 0 mls/hr PROTOCOL IV Last administered on 07/21/25at 00:10; Start 07/21/25 at 00:30; Stop 08/03/25 at 08:27; Status DC Vasopressin 20 units STK-MED ONCE .ROUTE; Start 07/21/25 at 00:10; Stop 07/21/25 at 00:11; Status DC Magnesium Sulfate 50 ml @ 0 mls/hr PROTOCOL PRN IV Last administered on 08/01/25at 06:05; Start 07/21/25 at 07:00; Stop 08/20/25 at 06:59 Acetaminophen 100 ml @ As Directed STK-MED ONCE .ROUTE; Start 07/21/25 at 09:42; Stop 07/21/25 at 09:42; Status DC Famotidine 20 mg STK-MED ONCE IV; Start 07/21/25 at 09:42; Stop 07/21/25 at 09:42; Status DC Albumin Human 500 ml @ As Directed STK-MED ONCE IV; Start 07/21/25 at 09:45; Stop 07/21/25 at 09:45; Status DC Phenylephrine HCl 10 mg STK-MED ONCE IV; Start 07/21/25 at 09:48; Stop 07/21/25 at 09:48; Status DC Dexamethasone Sodium Phosphate 10 mg STK-MED ONCE .ROUTE; Start 07/21/25 at 09:52; Stop 07/21/25 at 09:52; Status DC Ondansetron HCl 4 mg STK-MED ONCE .ROUTE; Start 07/21/25 at 09:52; Stop 07/21/25 at 09:52; Status DC Lidocaine HCl 100 mg STK-MED ONCE .ROUTE; Start 07/21/25 at 09:52; Stop 07/21/25 at 09:52; Status DC Succinylcholine Chloride 200 mg STK-MED ONCE .ROUTE; Start 07/21/25 at 09:53; Stop 07/21/25 at 09:53; Status DC Glycopyrrolate 1 mg STK-MED ONCE .ROUTE; Start 07/21/25 at 09:53; Stop 07/21/25 at 09:53; Status DC Fentanyl Citrate 100 mcg STK-MED ONCE .ROUTE; Start 07/21/25 at 09:54; Stop 07/21/25 at 09:54; Status DC Propofol 200 mg STK-MED ONCE IV; Start 07/21/25 at 09:54; Stop 07/21/25 at 09:54; Status DC Neostigmine Methylsulfate 10 mg STK-MED ONCE IV; Start 07/21/25 at 09:54; Stop 07/21/25 at 09:54; Status DC Rocuronium [place] 50 mg STK-MED ONCE .ROUTE; Start 07/21/25 at 09:54; Stop 07/21/25 at 09:54; Status DC Ketamine HCl 50 mg STK-MED ONCE .ROUTE; Start 07/21/25 at 09:55; Stop 07/21/25 at 09:56; Status DC Epinephrine HCl 1 mg STK-MED ONCE .ROUTE; Start 07/21/25 at 10:03; Stop 07/21/25 at 10:03; Status DC Midazolam HCl 2 mg STK-MED ONCE .ROUTE; Start 07/21/25 at 10:05; Stop 07/21/25 at 10:05; Status DC Indocyanine Green 25 mg STK-MED ONCE IJ; Start 07/21/25 at 10:49; Stop 07/21/25 at 10:49; Status DC Ephedrine Sulfate 50 mg STK-MED ONCE .ROUTE; Start 07/21/25 at 11:17; Stop 07/21/25 at 11:17; Status DC Bupivacaine HCl 5 mg STK-MED ONCE .ROUTE Last administered on 07/21/25at 12:14; Start 07/21/25 at 11:49; Stop 07/21/25 at 11:49; Status DC Sodium Bicarbonate 200 ml @ As Directed STK-MED ONCE .ROUTE; Start 07/21/25 at 12:19; Stop 07/21/25 at 12:19; Status DC Fentanyl Citrate 100 mcg STK-MED ONCE .ROUTE; Start 07/21/25 at 12:23; Stop 07/21/25 at 12:23; Status DC Phytonadione 10 mg STK-MED ONCE .ROUTE; Start 07/21/25 at 13:05; Stop 07/21/25 at 13:05; Status DC Lactated Ringer's 1,000 ml @ 75 mls/hr [id number] IV Last administered on 07/24/25at 09:27; Start 07/21/25 at 13:30; Stop 07/24/25 at 11:09; Status DC Morphine Sulfate 4 mg Q3H PRN IV Last administered on 07/26/25at 10:51; Start 07/21/25 at 13:30; Stop 07/26/25 at 16:29; Status DC Ondansetron HCl 4 mg Q4H PRN IVP Last administered on 08/16/25at 10:23; Start 07/21/25 at 13:30; Stop 08/16/25 at 17:50; Status DC Fentanyl Citrate 100 mcg STK-MED ONCE .ROUTE; Start 07/21/25 at 13:26; Stop 07/21/25 at 13:26; Status DC Sodium Bicarbonate 150 meq/Sodium Chloride 1,150 ml @ 0 mls/hr Q0M IVP; Start 07/21/25 at 14:00; Stop 07/26/25 at 09:31; Status DC Sodium Bicarbonate 100 meq ONCE ONCE IV; Start 07/21/25 at 14:00; Stop 07/21/25 at 14:23; Status DC Metronidazole/ Sodium Chloride 500 mg Q8H IV; Start 07/21/25 at 14:00; Stop 07/21/25 at 13:40; Status DC Fluconazole/ Sodium Chloride 200 mg Q24H IVPB Last administered on 08/16/25at 21:25; Start 07/21/25 at 21:00; Stop 08/20/25 at 20:59 Pharmacy Profile Note 1 each ONCE MISC; Start 07/21/25 at 15:30; Stop 07/21/25 at 15:16; Status DC Thiamine HCl 100 mg/Sodium Chloride 50 ml @ 100 mls/hr Q24H IM; Start 07/21/25 at 15:30; Stop 07/21/25 at 16:25; Status DC Sodium Bicarbonate 100 meq ONCE ONCE IV Last administered on 07/21/25at 16:42; Start 07/21/25 at 16:30; Stop 07/21/25 at 16:31; Status DC Thiamine HCl 100 mg DAILY IVP Last administered on 08/17/25at 09:47; Start 07/22/25 at 21:00; Stop 08/21/25 at 20:59 Diatrizoate Meglum/ Diatrizoate Sod 30 ml STK-MED ONCE .ROUTE; Start 07/23/25 at 15:13; Stop 07/23/25 at 15:13; Status DC Potassium Chloride 100 ml @ 100 mls/hr AD PRN IV Last administered on 07/30/25at 06:23; Start 07/24/25 at 08:30; Stop 08/23/25 at 08:29 Potassium Chloride 20 meq AD PRN PO Last administered on 07/31/25at 08:15; Start 07/24/25 at 08:30; Stop 08/23/25 at 08:29 Potassium Chloride 20 meq AD PRN PO Last administered on 07/27/25at 20:33; Start 07/24/25 at 08:30; Stop 08/23/25 at 08:29 Hydromorphone HCl 0.5 mg Q4H PRN IVP Last administered on 07/29/25at 08:22; Start 07/24/25 at 10:00; Stop 07/29/25 at 09:59; Status DC Spironolactone 25 mg BID PO Last administered on 07/26/25at 08:56; Start 07/25/25 at 21:00; Stop 07/26/25 at 09:01; Status DC Albumin Human 100 ml @ 0 mls/hr ONCE ONCE IV Last administered on 07/25/25at 17:05; Start 07/25/25 at 10:30; Stop 07/25/25 at 10:31; Status DC Albumin Human 100 ml @ 0 mls/hr ONCE IV Last administered on 07/25/25at 13:43; Start 07/25/25 at 12:00; Stop 07/26/25 at 11:59; Status DC Cyclobenzaprine HCl 5 mg TID PO Last administered on 07/26/25at 14:19; Start 07/25/25 at 14:00; Stop 07/26/25 at 14:00; Status DC Furosemide 20 mg DAILY PO Last administered on 08/02/25at 09:42; Start 07/25/25 at 11:00; Stop 08/02/25 at 11:53; Status DC Pantoprazole Sodium 40 mg BID IV Last administered on 08/17/25at 09:47; Start 07/26/25 at 21:00; Stop 08/20/25 at 08:59 Psyllium Hydrophilic Mucilloid 1 tbs BID PO Last administered on 08/17/25at 09:46; Start 07/26/25 at 21:00; Stop 08/25/25 at 20:59 Lactobacillus Rhamnosus 1 each DAILY20 PO Last administered on 08/16/25at 21:25; Start 07/26/25 at 20:00; Stop 08/25/25 at 19:59 Iron Sucrose 200 mg ONCE ONCE IV Last administered on 07/26/25at 14:19; Start 07/26/25 at 14:00; Stop 07/26/25 at 14:01; Status DC Lidocaine 1 patch DAILY TP Last administered on 08/16/25at 10:01; Start 07/28/25 at 09:00; Stop 08/27/25 at 08:59 Simethicone 80 mg Q6H6 PO Last administered on 08/17/25at 06:08; Start 07/27/25 at 12:00; Stop 08/26/25 at 11:59 Acetaminophen 500 mg Q6H6 PRN PO; Start 07/27/25 at 16:30; Stop 08/07/25 at 12:15; Status DC Lidocaine 1 patch ONCE ONCE TP Last administered on 07/27/25at 19:25; Start 07/27/25 at 19:30; Stop 07/27/25 at 19:31; Status DC Albumin Human 50 ml @ 0 mls/hr AD ONCE IV Last administered on 07/28/25at 17:44; Start 07/28/25 at 15:30; Stop 07/28/25 at 15:31; Status DC Albumin Human 100 ml @ 0 mls/hr AD ONCE IV Last administered on 07/29/25at 14:26; Start 07/29/25 at 12:30; Stop 07/29/25 at 12:31; Status DC Hydromorphone HCl 0.5 mg Q4H PRN IVP Last administered on 08/03/25at 13:09; Start 07/29/25 at 13:30; Stop 08/03/25 at 13:29; Status DC Gabapentin 100 mg TID PO Last administered on 08/01/25at 20:14; Start 07/29/25 at 14:00; Stop 08/02/25 at 09:21; Status DC Clotrimazole 1 GM BID TP Last administered on 08/16/25at 21:27; Start 07/29/25 at 21:00; Stop 08/28/25 at 20:59 Sucralfate 1 gm ACHS PO Last administered on 08/17/25at 11:27; Start 07/29/25 at 21:00; Stop 08/28/25 at 20:59 Piperacillin Sod/ Tazobactam Sod 3.375 gm Q8H IVPB Last administered on 08/10/25at 04:05; Start 07/31/25 at 11:30; Stop 08/10/25 at 11:29; Status DC Sodium Chloride 50 ml AD IV; Start 07/31/25 at 11:30; Stop 07/31/25 at 11:12; Status DC Iron Sucrose 300 mg/Sodium Chloride 250 ml @ 83 mls/hr ONCE ONCE IV Last administered on 07/31/25at 13:36; Start 07/31/25 at 12:00; Stop 07/31/25 at 15:00; Status DC Fentanyl 25 mcg Q72H TD; Start 07/31/25 at 14:30; Stop 07/31/25 at 14:44; Status DC Acetaminophen/ Hydrocodone Bitart 1 tab Q4H PRN PO Last administered on 08/05/25at 14:57; Start 07/31/25 at 16:30; Stop 08/05/25 at 16:29; Status DC Chromium/Copper/ Manganese/Zinc 3 ml/Multivitamins/ Minerals 10 ml/ Amino Acids/ Electrolytes/ Dextrose 2,000 ml @ 80 mls/hr ONCE ONCE IV Last administered on 08/01/25at 20:25; Start 08/01/25 at 20:00; Stop 08/02/25 at 20:59; Status DC Albumin Human 100 ml @ 0 mls/hr AD ONCE IV Last administered on 08/02/25at 09:41; Start 08/02/25 at 09:30; Stop 08/02/25 at 09:33; Status DC Lidocaine HCl 20 ml STK-MED ONCE .ROUTE; Start 08/02/25 at 11:24; Stop 08/02/25 at 11:24; Status DC Iohexol 50 ml STK-MED ONCE IV; Start 08/02/25 at 11:24; Stop 08/02/25 at 11:25; Status DC Estrogens Conjugated 1 appl ONCE ONCE VG; Start 08/02/25 at 12:00; Stop 08/02/25 at 12:01; Status DC Fentanyl Citrate 100 mcg STK-MED ONCE .ROUTE; Start 08/02/25 at 11:53; Stop 08/02/25 at 11:53; Status DC Midazolam HCl 2 mg STK-MED ONCE .ROUTE; Start 08/02/25 at 11:54; Stop 08/02/25 at 11:54; Status DC Midazolam HCl 2 mg STK-MED ONCE .ROUTE; Start 08/02/25 at 12:15; Stop 08/02/25 at 12:16; Status DC Multivitamins/ Minerals 10 ml/ Chromium/Copper/ Manganese/Zinc 3 ml/Amino Acids/ Electrolytes/ Dextrose 2,000 ml @ 80 mls/hr ONCE ONCE IV Last administered on 08/02/25at 21:08; Start 08/02/25 at 20:00; Stop 08/03/25 at 18:39; Status DC Estrogens Conjugated 1 appl ONCE ONCE VG Last administered on 08/02/25at 18:47; Start 08/02/25 at 18:30; Stop 08/02/25 at 18:31; Status DC Albumin Human 50 ml @ 0 mls/hr Q12H IV; Start 08/02/25 at 18:30; Stop 08/02/25 at 20:04; Status DC Albumin Human 50 ml @ 100 mls/hr Q12H IV Last administered on 08/05/25at 10:12; Start 08/02/25 at 21:30; Stop 08/05/25 at 09:59; Status DC Hydromorphone HCl 0.5 mg Q4H PRN IVP Last administered on 08/07/25at 05:09; Start 08/03/25 at 18:00; Stop 08/07/25 at 10:03; Status DC Chromium/Copper/ Manganese/Zinc 3 ml/Multivitamins/ Minerals 10 ml/ Amino Acids/ Electrolytes/ Dextrose 2,000 ml @ 80 mls/hr ONCE ONCE IV Last administered on 08/03/25at 21:51; Start 08/03/25 at 20:00; Stop 08/04/25 at 12:47; Status DC Chromium/Copper/ Manganese/Zinc 3 ml/Multivitamins/ Minerals 10 ml/ Amino Acids/ Electrolytes/ Dextrose 2,000 ml @ 80 mls/hr ONCE ONCE IV Last administered on 08/04/25at 21:54; Start 08/04/25 at 21:00; Stop 08/05/25 at 21:59; Status DC Metoclopramide HCl 5 mg BID IVP Last administered on 08/17/25at 09:47; Start 08/04/25 at 21:00; Stop 09/03/25 at 20:59 Iohexol 75 ml STK-MED ONCE IV; Start 08/04/25 at 14:27; Stop 08/04/25 at 14:26; Status DC Propofol 200 mg STK-MED ONCE IV; Start 08/05/25 at 12:54; Stop 08/05/25 at 12:54; Status DC Lidocaine HCl 100 mg STK-MED ONCE .ROUTE; Start 08/05/25 at 12:54; Stop 08/05/25 at 12:55; Status DC Pantoprazole Sodium 40 mg BID IVP Last administered on 08/05/25at 20:25; Start 08/05/25 at 21:00; Stop 08/06/25 at 08:39; Status DC Multivitamins/ Minerals 10 ml/ Amino Acids/ Electrolytes/ Dextrose 2,000 ml @ 80 mls/hr ONCE ONCE IV Last administered on 08/06/25at 04:53; Start 08/06/25 at 05:00; Stop 08/07/25 at 05:59; Status DC Pharmacy Profile Note 1 each ONCE MISC; Start 08/06/25 at 16:00; Stop 08/07/25 at 07:07; Status DC Lidocaine HCl/Al Hydroxide/Mg Hydroxide/ Dicyclomine HCl 20ML OR AD ONCE PO Last administered on 08/06/25at 16:45; Start 08/06/25 at 16:30; Stop 08/07/25 at 16:29; Status DC Multivitamins/ Minerals 10 ml/ Amino Acids/ Electrolytes/ Dextrose 2,000 ml @ 80 mls/hr ONCE ONCE IV; Start 08/07/25 at 07:00; Stop 08/07/25 at 06:32; Status DC Multivitamins/ Minerals 10 ml/ Chromium/Copper/ Manganese/Zinc 3 ml/Amino Acids/ Electrolytes/ Dextrose 2,000 ml @ 80 mls/hr ONCE ONCE IV Last administered on 08/07/25at 06:41; Start 08/07/25 at 07:00; Stop 08/08/25 at 04:36; Status DC Acetaminophen 500 mg Q6H6 PRN PO; Start 08/07/25 at 10:00; Stop 08/07/25 at 10:03; Status DC Hydromorphone HCl 0.5 mg Q4H PRN IVP Last administered on 08/10/25at 20:27; Start 08/07/25 at 10:00; Stop 08/11/25 at 10:32; Status DC Acetaminophen/ Hydrocodone Bitart 1 tab Q4H PRN PO Last administered on 08/12/25at 00:46; Start 08/07/25 at 12:30; Stop 08/12/25 at 12:29; Status DC Chromium/Copper/ Manganese/Zinc 3 ml/Amino Acids/ Electrolytes/ Dextrose 2,000 ml @ 80 mls/hr ONCE ONCE IV; Start 08/08/25 at 05:00; Stop 08/08/25 at 04:59; Status DC Chromium/Copper/ Manganese/Zinc 3 ml/Amino Acids/ Electrolytes/ Dextrose 2,000 ml @ 80 mls/hr ONCE ONCE IV Last administered on 08/08/25at 05:51; Start 08/08/25 at 07:00; Stop 08/09/25 at 05:18; Status DC Chromium/Copper/ Manganese/Zinc 3 ml/Amino Acids/ Electrolytes/ Dextrose 2,000 ml @ 80 mls/hr ONCE ONCE IV Last administered on 08/09/25at 06:11; Start 08/09/25 at 07:00; Stop 08/10/25 at 07:59; Status DC Lidocaine HCl 50 ml STK-MED ONCE .ROUTE; Start 08/09/25 at 09:59; Stop 08/09/25 at 09:59; Status DC Iohexol 50 ml STK-MED ONCE IV; Start 08/09/25 at 09:59; Stop 08/09/25 at 09:59; Status DC Sodium Chloride 10 ml Q8H IJ Last administered on 08/17/25at 11:31; Start 08/09/25 at 11:00; Stop 09/08/25 at 10:59 Fentanyl 12 mcg Q72H TD; Start 08/09/25 at 13:00; Stop 08/09/25 at 15:19; Status DC Fentanyl Citrate 100 mcg STK-MED ONCE .ROUTE Last administered on 08/09/25at 16:15; Start 08/09/25 at 13:17; Stop 08/09/25 at 13:17; Status DC Midazolam HCl 2 mg STK-MED ONCE .ROUTE Last administered on 08/09/25at 16:15; Start 08/09/25 at 13:17; Stop 08/09/25 at 13:18; Status DC Fentanyl 12 mcg Q72H TD Last administered on 08/09/25at 15:38; Start 08/09/25 at 15:30; Stop 08/11/25 at 10:32; Status DC Chromium/Copper/ Manganese/Zinc 3 ml/Multivitamins/ Minerals 10 ml/ Amino Acids/ Electrolytes/ Dextrose 2,000 ml @ 80 mls/hr ONCE ONCE IV Last administered on 08/10/25at 09:54; Start 08/10/25 at 08:30; Stop 08/11/25 at 09:29; Status DC Piperacillin Sod/ Tazobactam Sod 3.375 gm Q8H IVPB Last administered on 08/17/25at 05:03; Start 08/10/25 at 13:00; Stop 08/20/25 at 12:59 Fentanyl 25 mcg Q72H TD; Start 08/12/25 at 15:30; Stop 08/12/25 at 16:00; Status DC Hydromorphone HCl 0.5 mg Q6H PRN IVP Last administered on 08/15/25at 16:03; Start 08/11/25 at 11:00; Stop 08/16/25 at 10:59; Status DC Methocarbamol 500 mg BID PO Last administered on 08/17/25 09:46; Start 08/11/25 at 16:00; Stop 09/10/25 at 15:59 Gabapentin 100 mg TID PO Last administered on 08/17/25at 09:46; Start 08/11/25 at 21:00; Stop 09/10/25 at 20:59 Multivitamins/ Minerals 10 ml/ Chromium/Copper/ Manganese/Zinc 3 ml/Amino Acids/ Electrolytes/ Dextrose 2,000 ml @ 80 mls/hr ONCE ONCE IV Last administered on 08/12/25at 22:38; Start 08/12/25 at 20:00; Stop 08/13/25 at 11:49; Status DC Fat Emulsion Intravenous 250 ml @ 42 mls/hr [id number] IV Last administered on 08/17/25at 09:47; Start 08/13/25 at 10:00; Stop 09/12/25 at 09:59 Fentanyl 25 mcg Q72H TD Last administered on 08/16/25at 00:02; Start 08/12/25 at 21:00; Stop 08/17/25 at 20:59 Acetaminophen/ Hydrocodone Bitart 1 tab Q4H PRN PO Last administered on 08/17/25at 10:17; Start 08/12/25 at 16:30; Stop 08/17/25 at 16:29 Home Med HS TD; Start 08/12/25 at 21:00; Stop 09/11/25 at 20:59 Multivitamins/ Minerals 10 ml/ Chromium/Copper/ Manganese/Zinc 3 ml/Amino Acids/ Electrolytes/ Dextrose 2,000 ml @ 80 mls/hr ONCE ONCE IV Last administered on 08/13/25at 20:15; Start 08/13/25 at 20:00; Stop 08/14/25 at 11:29; Status DC Multivitamins/ Minerals 10 ml/ Amino Acids/ Electrolytes/ Dextrose 2,000 ml @ 80 mls/hr ONCE ONCE IV Last administered on 08/14/25at 21:37; Start 08/14/25 at 20:00; Stop 08/15/25 at 20:59; Status DC Duloxetine HCl 30 mg BID PO Last administered on 08/17/25at 09:46; Start 08/15/25 at 21:00; Stop 09/14/25 at 20:59 Ketorolac Tromethamine 15 mg Q8H PRN IM Last administered on 08/16/25at 00:01; Start 08/15/25 at 18:30; Stop 08/16/25 at 06:57; Status DC Pharmacy Profile Note 1 each ONCE MISC; Start 08/16/25 at 16:00; Stop 08/15/25 at 21:12; Status DC Multivitamins/ Minerals 10 ml/ Amino Acids/ Electrolytes/ Dextrose 2,000 ml @ 80 mls/hr ONCE ONCE IV Last administered on 08/15/25at 23:25; Start 08/15/25 at 21:00; Stop 08/16/25 at 13:13; Status DC Amino Acids/ Electrolytes/ Dextrose 2,000 ml @ 80 mls/hr ONCE ONCE IV; Start 08/16/25 at 13:30; Stop 08/17/25 at 01:21; Status DC Ondansetron HCl 4 mg Q6H IVP Last administered on 08/17/25at 06:08; Start 08/16/25 at 18:00; Stop 09/15/25 at 17:59 Amino Acids/ Electrolytes/ Dextrose 2,000 ml @ 40 mls/hr ONCE ONCE IV Last administered on 08/17/25at 01:40; Start 08/17/25 at 01:30; Stop 08/19/25 at 03:29 BENEDICTO OBRIEN Jr. PAC Aug 17, 2025 12:01
--- NOTE | 2025-08-17 12:51 | PN ---
NEPHROLOGY PROGRESS NOTE Date/Time Patient Seen: Aug 17, 2025 SUBJECTIVE: This is a 55-year-old female with a past medical history of diabetes mellitus type 2, liver cirrhosis, esophageal varices. He presented to the emergency room with chief complain of abdominal pain. CT of the abdomen showed moderate small bowel enteritis with free air in the upper abdomen, suggesting perforated bowel versus post surgical changes. No obs truction. S/p diagnostic laparoscopy, abdominal washout, drain placement and diverting loop ileostomy creation with CHRIS drain 10 Swedish on 07/21 S/P cholecystotomy tube on 08/02 S/P Cholecystogram showed cholecystotomy tube in satisfactory position with multiple large gallstones seen in the gallbladder lumen on 08/09 S/P successful CT guided drainage of left infrasplenic collection on 08/09 Diet is being advanced as tolerated, continues on TPN as per surgery She was noted to have elevated BUN/creatinine We are consulted for renal failure Renal function is stable Electrolytes show worsening hyponatremia Continues with poor oral intake She was seen in the medial floor, in no acute distress No family at the bedside REVIEW OF SYSTEMS: GENERAL: Positive for nausea NEUROLOGIC: Negative for any blurry vision, blind spots, double vision, facial asymmetry, dysphagia, dysarthria, hemiparesis, hemisensory deficits, vertigo, ataxia. HEENT: Negative for any head trauma, neck trauma, neck stiffness, photophobia, phonophobia, sinusitis, rhinitis. CARDIAC: Negative for any chest pain, dyspnea on exertion, paroxysmal nocturnal dyspnea, peripheral edema. PULMONARY: Negative for any shortness of breath, wheezing, COPD, or TB exposure. GASTROINTESTINAL: Negative for any abdominal pain, nausea, vomiting, bright red blood per rectum, melena. GENITOURINARY: Negative for any dysuria, hematuria, incontinence. INTEGUMENTARY: Negative for any rashes, cuts, insect bites. RHEUMATOLOGIC: Negative for any joint pains, photosensitive rashes, history of vasculitis or kidney problems. HEMATOLOGIC: Negative for any abnormal bruising, frequent infections or bleeding. Vital Signs (last 8hr) Date Time Temp Pulse Resp B/P (MAP) Pulse Ox O2 Delivery O2 Flow Rate FiO2 08/17/25 12:10 98.1 62 18 103/74 96 Room Air 08/17/25 07:52 98.2 84 19 109/63 96 Room Air PHYSICAL EXAM: GENERAL: Alert and oriented x 3. No acute distress. Well-nourished. EYES: EOMI. Anicteric. HENT: Moist mucous membranes. No scleral icterus. No cervical lymphadenopathy. LUNGS: Clear to auscultation bilaterally. No accessory muscle use. CARDIOVASCULAR: Regular rate and rhythm. No murmur. No JVD. ABDOMEN: Soft, non-tender and non-distended. No palpable masses. EXTREMITIES: No edema. Non-tender SKIN: No rashes or lesions. Warm. NEUROLOGIC: No focal neurological deficits. CN II-XII grossly intact, but not individually tested. PSYCHIATRIC: Cooperative. Appropriate mood and affect. Current Medications Medications (Trade) Dose Ordered Sig/Gregory Route Start Time Stop Time Status Last Admin Dose Admin Albumin Human 100 ml @ 0 mls/hr ONCE IV 07/25/25 12:00 07/26/25 11:59 DC 07/25/25 13:43 100 MLS/HR Cyclobenzaprine HCl (Cyclobenzaprine HCl) 5 mg TID PO 07/25/25 14:00 07/26/25 14:00 DC 07/26/25 14:19 5 MG Fluconazole/ Sodium Chloride (DiFLUCan 200 MG/ NS 100 ML) 200 mg Q24H IVPB 07/21/25 21:00 08/20/25 20:59 07/25/25 20:47 200 MG Furosemide (LASix 20MG TAB) 20 mg DAILY PO 07/25/25 11:00 08/24/25 10:59 07/26/25 08:56 20 MG Insulin Human Regular (humuLIN R 100 UNIT/ML 3ML) INSULIN SLIDING SCAL... ACHS SQ 07/21/25 07:30 08/20/25 07:29 07/22/25 20:40 3 UNIT Lactated Ringer's 1,000 ml @ 75 mls/hr [id number] IV 07/21/25 00:00 07/21/25 13:17 DC 07/21/25 02:57 75 MLS/HR Lactated Ringer's 1,000 ml @ 75 mls/hr [id number] IV 07/21/25 13:30 07/24/25 11:09 DC 07/24/25 09:27 75 MLS/HR Lactobacillus Rhamnosus ([facility] SAVO & Mebelrama) 1 each DAILY20 PO 07/26/25 20:00 08/25/25 19:59 Metronidazole/ Sodium Chloride (flaGYL) 500 mg Q8H IV 07/21/25 14:00 07/21/25 13:40 DC Norepinephrine 250 ml @ 0 mls/hr PROTOCOL IV 07/20/25 23:30 08/19/25 23:29 07/21/25 10:56 18.45 MLS/HR Pantoprazole Sodium (PROTonix 40MG INJ) 40 mg BID IV 07/26/25 21:00 08/20/25 08:59 Pantoprazole Sodium (PROTonix 40MG INJ) 40 mg DAILY IV 07/21/25 09:00 07/26/25 09:31 DC 07/26/25 08:55 40 MG Pharmacy Profile Note (Pharmacy Communication) 1 each ONCE MISC 07/21/25 15:30 07/21/25 15:16 DC Piperacillin Sod/ Tazobactam Sod 50 ml @ 200 mls/hr ONCE STAT IVPB 07/20/25 19:15 07/20/25 19:29 DC 07/20/25 20:32 200 MLS/HR Piperacillin Sod/ Tazobactam Sod (Zosyn 3.375gm+NS 50ml) 3.375 gm Q12H IV 07/21/25 00:00 07/31/25 00:00 07/26/25 12:10 3.375 GM Psyllium Hydrophilic Mucilloid (Metamucil) 1 tbs BID PO 07/26/25 21:00 08/25/25 20:59 Sodium Bicarbonate 150 meq/Sodium Chloride 1,150 ml @ 0 mls/hr Q0M IVP 07/21/25 14:00 07/26/25 09:31 DC Spironolactone (Aldactone 25mg) 25 mg BID PO 07/25/25 21:00 07/26/25 09:01 DC 07/26/25 08:56 25 MG Thiamine HCl (Vitamin B-1) 100 mg DAILY IVP 07/22/25 21:00 08/21/25 20:59 07/26/25 08:55 100 MG Thiamine HCl 100 mg/Sodium Chloride 50 ml @ 100 mls/hr Q24H IM 07/21/25 15:30 07/21/25 16:25 DC Vancomycin HCl (Vancomycin 1g/ 250ml Kit) 1 gm ONCE STAT IV 07/20/25 21:23 07/20/25 21:26 DC 07/20/25 22:06 1 GM Vasopressin 20 units/Sodium Chloride 100 ml @ 0 mls/hr PROTOCOL IV 07/21/25 00:30 08/20/25 00:29 07/21/25 00:10 9 MLS/HR LABORATORY: [ ] Hematology Labs: Test 08/17/25 03:40 Range/Units White Blood Count 5.5 4.8-10.8 K/uL Red Blood Count 3.05 L 4.00-5.50 MIL/uL Hemoglobin 9.0 L 12.0-16.0 g/dL Hematocrit 28.4 L 36-48 % Mean Corpuscular Volume 93.1 79-99 fL Mean Corpuscular Hemoglobin 29.5 27.0-33.0 pg Mean Corpuscular Hemoglobin Concent 31.7 L 32.0-36.0 g/dL Red Cell Distribution Width 17.2 H 11.0-15.5 % Platelet Count 193 130-400 K/uL Mean Platelet Volume 9.5 7.5-10.5 fL Immature Granulocyte % (Auto) 2.9 H 0-1 % Neutrophils (%) (Auto) 69.8 40.0-77.0 % Lymphocytes (%) (Auto) 12.8 L 21.0-51.0 % Monocytes (%) (Auto) 9.2 3.0-13.0 % Eosinophils (%) (Auto) 4.9 0.0-8.0 % Basophils (%) (Auto) 0.4 0.0-5.0 % Neutrophils # (Auto) 3.9 1.8-7.7 K/uL Lymphocytes # (Auto) 0.7 L 1.0-4.8 K/uL Monocytes # (Auto) 0.5 0.1-1.0 K/uL Eosinophils # (Auto) 0.27 0.00-0.70 K/uL Basophils # (Auto) 0.02 0.00-0.20 K/uL Absolute Immature Granulocyte (auto 0.16 0-1 K/uL Nucleated Red Blood Cells 0.0 0.0-0.19 % Chemistry Labs: Test 08/17/25 10:50 08/17/25 03:40 08/16/25 04:10 Range/Units Whole Blood Glucose 127 H 70-110 MG/DL Sodium Level 128 L 136-145 mmol/L Potassium Level 4.3 3.5-5.1 mmol/L Chloride Level 99 L 101-111 mmol/L Carbon Dioxide Level 24 21-32 mmol/L Blood Urea Nitrogen 12 7-18 mg/dL Creatinine 0.5 0.5-1.0 mg/dL Glomerular Filtration Rate Calc 109 >90 mL/min Random Glucose 112 H 70-105 mg/dL Total Calcium 8.6 8.5-10.1 mg/dL Total Bilirubin 0.4 0.2-1.0 mg/dL Aspartate Amino Transf (AST/SGOT) 38 H 10-37 U/L Alanine Aminotransferase (ALT/SGPT) 14 12-78 U/L Alkaline Phosphatase 150 H 50-136 U/L C-Reactive Protein, Quantitative 16.10 H 0.5-3.0 mg/L Total Protein 7.0 6.0-8.3 g/dL Albumin 2.4 L 3.5-5.0 g/dL DIAGNOSTICS / RADIOLOGY: [address] [address] IMAGING REPORT Signed PATIENT: DALLAS BUCHANAN MR#: [id number] : 1970 SEX: F AGE: 55 LOCATION: [facility] ORDER 1 STATUS: ADM IN REPORT#: [id number] SERVICE 0 REASON: picc line placement ORDERING PHYSICIAN: AYAKA BARR MD PROCEDURE: CXR1VW - CHEST 1VW EXAM: CR Chest, single view. CLINICAL HISTORY: PICC line placement. COMPARISON: Prior chest radiograph dated July 22, 2025 FINDINGS: Left-sided PICC line placement with tip in the region of the superior vena cava. Mild cardiomegaly. An ill-defined soft tissue in the superior mediastinum possibility of aortic arch aneurysm, is not excluded. The lungs show no infiltrate or other acute findings. No pleural effusion or pneumothorax. No acute osseous abnormality. IMPRESSION: Left-sided PICC line placement with tip in the region of the superior vena cava. Mild cardiomegaly. An ill-defined soft tissue in the superior mediastinum possibility of aortic arch aneurysm, is not excluded. May consider further evaluation with contrast-enhanced CT thorax. Compared to the prior study, there is no interval resolution of the subsegmental atelectasis in the right lower lobe, interval removal of the nasogastric tube, and interval placement of the left-sided PICC catheter. /[place] DICTATED BY: ELDON MILLER Jr., MD DATE: 08/11/25824 ELECTRONICALLY SIGNED BY: ELDON MILLER Jr., MD DATE: 08/11/25824 PATIENT: DALLAS BUCHANAN MR#: [id number] : 1970 SEX: F AGE: 55 LOCATION: 4AH ORDER 154 STATUS: ADM IN REPORT#: [id number] SERVICE 9 REASON: Aspiration of perisplenic fluid noted on CT ORDERING PHYSICIAN: BENEDICTO OBRIEN Jr. PROCEDURE: GUID NDL - CT GUIDE NDL PLCMT IR CT GUIDE NDL PLCMT IR HISTORY: Aspiration of perisplenic fluid noted on CT infrasplenic fluid collection drainage . TECHNIQUE: Images from prior studies reviewed. Informed consent was obtained after explaining the procedure and potential complications to the patient. Time out performed. The patient was placed prone on the CT couch and images of the abdomen obtained. The left flank draped in sterile fashion. Local anesthesia was applied and under CT-fluoroscopy guidance, a 19-gauge needle introducer was advanced through the abdominal wall and into a left infrasplenic fluid collection in the left hemiabdomen. Then, over a wire the tract was dilated to accommodate a 8 Swedish APDL catheter, which was left coiled within the collection. Completion images reveal no hemorrhage. Patient tolerated the procedure well and was discharged from the department in good condition. Approximately 10 cc of fluid mL of fluid sent for cultures. Conscious sedation provided by a registered nurse who monitored the patient's vital signs throughout and after the procedure. MEDICATIONS: Fentanyl 100 mcg IV and Versed 2 mg IV IMPRESSION: Successful CT guided drainage of left infrasplenic collection. DICTATED BY: GREER FIORE MD DATE: 08/10/25927 ELECTRONICALLY SIGNED BY: GREER FIORE MD DATE: 08/10/25937 PATIENT: DALLAS BUCHANAN MR#: [id number] : 1970 SEX: F AGE: 55 LOCATION: 4AH ORDER 36 STATUS: ADM IN REPORT#: [id number] SERVICE 35 REASON: epigastric pain. not tolerating meals. ORDERING PHYSICIAN: SUSAN JHAVERI MD PROCEDURE: ABD PEL W - CT ABDOMEN/PELVIS W/CONTRAST EXAM: CT Abdomen and Pelvis with IV contrast CLINICAL HISTORY: epigastric pain. not tolerating meals. TECHNIQUE: Axial computed tomography images of the abdomen and pelvis with intravenous contrast. CONTRAST: with intravenous contrast. COMPARISON: Compared with the previous CT dated 07/20 and USG dated 07/29 FINDINGS: LUNG BASES: Grossly stable atelectasis and scarring at the lung bases. LIVER: Unremarkable. GALLBLADDER AND BILE DUCTS: The gallbladder is decompressed with a cholecystostomy tube in situ. PANCREAS: Unremarkable. SPLEEN: The spleen is enlarged in size, measuring 15.2 cm. ADRENAL GLANDS: Unremarkable. KIDNEYS, URETERS, AND BLADDER: No hydronephrosis or nephrolithiasis. No ureteral calculi. The urinary bladder is unremarkable. STOMACH AND BOWEL: The ileostomy site appears unremarkable. Interval resolution of previously seen moderate small bowel enteritis. No obstruction. APPENDIX: No CT evidence for appendicitis. PERITONEUM: Near complete interval resolution of previously seen moderate ascites in the abdomen and pelvis. Collection in the perisplenic and infra-splenic region measuring 6.0 x 6.1 x 8.9 cm. Interval resolution of previously seen pneumoperitoneum. Diffuse mesenteric fat stranding, likely postoperative changes. LYMPH NODES: No lymphadenopathy. REPRODUCTIVE: Unremarkable as visualized. VASCULATURE: No aortic aneurysm. ABDOMINAL WALL AND SOFT TISSUES: Interval resolution of previously seen subcutaneous emphysema in the anterior abdominal wall and left lateral chest wall. Abdominal drain in situ with tip in the pelvis. BONES: No fracture or suspicious osseous abnormality. IMPRESSION: 1. Perisplenic and infrasplenic fluid collection measuring 6.0 x 6.1 x 8.9 cm. 2. Splenomegaly, with spleen measuring 15.2 cm. 3. Cholecystostomy tube in situ with decompressed gallbladder. 4. Abdominal drain in situ with tip in the pelvis. 5. No acute findings in the remainder of the abdomen and pelvis. /[place] DICTATED BY: ELDON MILLER Jr., MD DATE: 08/04/251636 ELECTRONICALLY SIGNED BY: ELDON MILLER Jr., MD DATE: 08/04/25 163 PATIENT: DALLAS BUCHANAN MR#: [id number] : 1970 SEX: F AGE: 55 LOCATION: [facility]AH ORDER 1524 STATUS: ADM IN REPORT#: [id number] SERVICE 1523 REASON: cholecystitis ORDERING PHYSICIAN: BENEDICTO OBRIEN Jr. PROCEDURE: HIDA PHARM - NM HIDA/HEPATOBILI W/ PHARMACO EXAM: HIDA scan. INDICATION: Severe RUQ Pain to rule out cholecystitis. REFERENCE EXAMINATION: USG July 29, 2025. TECHNIQUE: Sequential images of the abdomen were obtained in the anterior projection after IV administration of 6.0 mCi of Tc99m Mebrofenin. FINDINGS: Tracer activity throughout the liver is homogeneous without focal defects. There is prompt excretion of the pharmaceutical into the bile ducts and into the small bowel, without evidence of obstruction. There is no visualization of the gallbladder at the conclusion of the examination. IMPRESSION: Scintigraphic findings are compatible with acute cholecystitis. /[place] DICTATED BY: ELDON MILLER Jr., MD DATE: 08/01/25 1011 ELECTRONICALLY SIGNED BY: ELDON MILLER Jr., MD DATE: 08/01/25 1011 PATIENT: DALLAS BUCHANAN MR#: [id number] : 1970 SEX: F AGE: 55 LOCATION: [facility] ORDER 191 STATUS: ADM IN REPORT#: [id number] SERVICE 191 REASON: ABD PAIN ORDERING PHYSICIAN: NIKKI MUNOZ NP PROCEDURE: ABD 1VW - ABD 1VW EXAM: CR Abdomen, 1 view. CLINICAL HISTORY: Pain. COMPARISON: None provided. FINDINGS: Dilated small bowel loops are seen in mid abdomen. There is a density in the pelvis which may represent a send drainage catheter. No free air is evident. No abnormal calcification. No aggressive appearing osseous lesion. IMPRESSION: Dilated small bowel loops are seen in mid abdomen. Density in the pelvis which may represent a send drainage catheter. /[place] DICTATED BY: TOBI LEAHY MD DATE: 07/29/251032 ELECTRONICALLY SIGNED BY: TOBI LEAHY MD DATE: 07/29/251032 PATIENT: DALLAS BUCHANAN MR#: [id number] : 1970 SEX: F AGE: 55 LOCATION: [facility] ORDER 18 STATUS: ADM IN REPORT#: [id number] SERVICE 151 REASON: Liver cirrhosis ORDERING PHYSICIAN: LISET DOUGLAS MD PROCEDURE: ABDOMEN - US ABDOMINAL COMPLETE EXAM: US Abdomen complete CLINICAL HISTORY: Liver cirrhosis TECHNIQUE: Real-time ultrasound of the abdomen (complete) with image documentation. COMPARISON: None provided. FINDINGS: LIVER: Liver measures 12.3 cm with a heterogeneous coarse echotexture. GALLBLADDER: Gallbladder contains stones and sludge. Gallbladder is distended. COMMON BILE DUCT: No dilation. PANCREAS: Pancreas not well-visualized due to overlying bowel gas KIDNEYS: Normal renal contours. No renal mass or calculus. No hydronephrosis. SPLEEN: Normal in size and echogenicity. No mass identified. AORTA: No aneurysm. IVC: Unremarkable as visualized. MISCELLANEOUS: Small amount of abdominal ascites. IMPRESSION: 1. Cirrhotic-appearing liver. 2. Cholelithiasis and biliary sludge with gallbladder distension. 3. Small volume ascites. /[place] DICTATED BY: CYNTHIA JULIAN MD DATE: 07/29/251055 ELECTRONICALLY SIGNED BY: CYNTHIA JULIAN MD DATE: 07/29/25 105 PATIENT: DALLAS BUCHANAN MR#: [id number] : 1970 SEX: F AGE: 55 LOCATION: 2BH ORDER 1108 STATUS: ADM IN REPORT#: [id number] SERVICE 1106 REASON: sob ORDERING PHYSICIAN: PREET BOSTON MD PROCEDURE: CXR1VW - CHEST 1VW CHEST 1VW REASON: sob COMPARISON: Study from 07/21/2025 is available. FINDINGS: Single view of the chest was obtained. Lungs are clear. Heart size is normal. There is no pulmonary vascular congestion. There is a right-sided PIC catheter with tip in superior vena cava. There is a nasogastric tube with the tip in the fundus of the stomach. Mediastinum and bony thorax appear unremarkable. IMPRESSION: 1. No acute cardiopulmonary process 2. The support lines are in satisfactory position.. DICTATED BY: GREER FIORE MD DATE: 07/22/25 135 ELECTRONICALLY SIGNED BY: GREER FIORE MD DATE: 07/22/25 135 PATIENT: DALLAS BUCHANAN MR#: [id number] : 1970 SEX: F AGE: 55 LOCATION: 2BH ORDER 0100 STATUS: ADM IN REPORT#: [id number] SERVICE 0100 REASON: PICC LINE ORDERING PHYSICIAN: HEATHER LEACH APRN PROCEDURE: CXR1VW - CHEST 1VW EXAM: CR Chest, single view. CLINICAL HISTORY: PICC line COMPARISON: Prior same day chest radiograph. FINDINGS: Right-sided PICC catheter with tip in the cavoatrial junction. Subsegmental atelectasis in the right lower lobe. No evidence of pleural effusion or pneumothorax. The cardiomediastinal silhouette is within normal limits. No acute osseous abnormality. IMPRESSION: Right-sided PICC catheter with tip in the cavoatrial junction. Subsegmental atelectasis in the right lower lobe. No evidence of pleural effusion or pneumothorax. Compared to the prior study, there is interval placement of the right-sided PICC line and interval resolution of the subsegmental atelectasis in the left lower lobe. /[place] DICTATED BY: ELDON MILLER Jr., MD DATE: 07/21/25816 ELECTRONICALLY SIGNED BY: ELDON MILLER Jr., MD DATE: 07/21/25816 PATIENT: DALLAS BUCHANAN MR#: [id number] : 1970 SEX: F AGE: 55 LOCATION: [facility] ORDER 14 STATUS: REG [facility] REPORT#: [id number] SERVICE 12 REASON: CHEST PAIN/COUGH ORDERING PHYSICIAN: ALHAJI SHINE NP PROCEDURE: CXR1VW - CHEST 1VW EXAM: XR Chest, 1 View. CLINICAL HISTORY: 55 year old female with chest pain and cough. COMPARISON: None provided. FINDINGS: LUNGS: The lungs demonstrate evidence of atelectasis. PLEURAL SPACES: A small right pleural effusion is present. HEART: The heart size is normal. BONES: No acute osseous abnormality. IMPRESSION: 1. Small right pleural effusion and right lung base atelectasis. /[place] DICTATED BY: EDWIGE LEDESMA MD DATE: 07/20/252046 ELECTRONICALLY SIGNED BY: EDWIGE LEDESMA MD DATE: 07/20/252046 PATIENT: DALLAS BUCHANAN MR#: [id number] : 1970 SEX: F AGE: 55 LOCATION: [facility] ORDER 14 STATUS: REG ER REPORT#: [id number] SERVICE 12 REASON: Abdominal Pain ORDERING PHYSICIAN: ALHAJI SHINE MESH WORKER PROCEDURE: ABD PEL W - CT ABDOMEN/PELVIS W/CONTRAST ADDENDUM REPORT ADDENDUM: Results were shared by telephone at 23:23 pm on 07-20-2025 and acknowledged by Pt nurse Ms. SHIN BOYKIN. /[place] EXAM: CT Abdomen and Pelvis with Intravenous Contrast CLINICAL HISTORY: 55-year-old female with abdominal pain. TECHNIQUE: Axial computed tomography images of the abdomen and pelvis with intravenous contrast. Dose reduction technique was used including one or more of the following: automated exposure control, adjustment of mA and kV according to patient size, and/or iterative reconstruction. CONTRAST: Omnipaque 350, 75 mL COMPARISON: None provided. FINDINGS: LUNG BASES: Atelectasis and scarring at the lung bases. LIVER: Unremarkable. GALLBLADDER AND BILE DUCTS: Tiny gallstone seen. PANCREAS: Unremarkable. SPLEEN: Unremarkable. ADRENAL GLANDS: Unremarkable. KIDNEYS, URETERS, AND BLADDER: Dueñas catheter seen in the bladder lumen. No hydronephrosis or nephrolithiasis. No ureteral calculi. STOMACH AND BOWEL: Edema or loops of small bowel suggesting moderate small bowel enteritis. Free air in the upper abdomen is seen, suggesting perforated bowel. No obstruction. APPENDIX: No CT evidence for appendicitis. PERITONEUM: Moderate ascites in the abdomen and pelvis. No free air under the diaphragm. LYMPH NODES: No lymphadenopathy. REPRODUCTIVE: Unremarkable as visualized. VASCULATURE: No aortic aneurysm. ABDOMINAL WALL AND SOFT TISSUES: There is air in the subcutaneous soft tissue seen anteriorly, suggesting recent postsurgical changes; please correlate with surgical history. BONES: No fracture or suspicious osseous abnormality. IMPRESSION: 1. Moderate small bowel enteritis with free air in the upper abdomen, suggesting perforated bowel versus post surgical changes. No obstruction. 2. Moderate ascites in the abdomen and pelvis. 3. Air in the subcutaneous soft tissue anteriorly, suggesting recent postsurgical changes; please correlate with surgical history. /[place] DICTATED BY: EDWIGE LEDESMA MD DATE: 07/20/25 5097 ELECTRONICALLY SIGNED BY: DATE: EXAM: CT Abdomen and Pelvis with Intravenous Contrast CLINICAL HISTORY: 55-year-old female with abdominal pain. TECHNIQUE: Axial computed tomography images of the abdomen and pelvis with intravenous contrast. Dose reduction technique was used including one or more of the following: automated exposure control, adjustment of mA and kV according to patient size, and/or iterative reconstruction. CONTRAST: Omnipaque 350, 75 mL COMPARISON: None provided. FINDINGS: LUNG BASES: Atelectasis and scarring at the lung bases. LIVER: Unremarkable. GALLBLADDER AND BILE DUCTS: Tiny gallstone seen. PANCREAS: Unremarkable. SPLEEN: Unremarkable. ADRENAL GLANDS: Unremarkable. KIDNEYS, URETERS, AND BLADDER: Dueñas catheter seen in the bladder lumen. No hydronephrosis or nephrolithiasis. No ureteral calculi. STOMACH AND BOWEL: Edema or loops of small bowel suggesting moderate small bowel enteritis. Free air in the upper abdomen is seen, suggesting perforated bowel. No obstruction. APPENDIX: No CT evidence for appendicitis. PERITONEUM: Moderate ascites in the abdomen and pelvis. No free air under the diaphragm. LYMPH NODES: No lymphadenopathy. REPRODUCTIVE: Unremarkable as visualized. VASCULATURE: No aortic aneurysm. ABDOMINAL WALL AND SOFT TISSUES: There is air in the subcutaneous soft tissue seen anteriorly, suggesting recent postsurgical changes; please correlate with surgical history. BONES: No fracture or suspicious osseous abnormality. IMPRESSION: 1. Moderate small bowel enteritis with free air in the upper abdomen, suggesting perforated bowel versus post surgical changes. No obstruction. 2. Moderate ascites in the abdomen and pelvis. 3. Air in the subcutaneous soft tissue anteriorly, suggesting recent postsurgical changes; please correlate with surgical history. /[place] DICTATED BY: EDWIGE LEDESMA MD DATE: 07/20/252317 ELECTRONICALLY SIGNED BY: EDWIGE LEDESMA MD DATE: 07/20/252317 ASSESSMENT: Acute kidney injury Hyponatremia Bacterial peritonitis Perisplenic and infrasplenic fluid collection with splenomegaly Cholelithiasis 2 mm perforation of the colonic anastomosis Anastomosis leak Bilious peritonitis S/p Diagnostic laparoscopy, abdominal washout, drain placement and diverting loop ileostomy creation Atrophic vaginitis Anemia Diabetes Mellitus Type 2 Septic Shock Cirrhosis of liver Oesophageal Varices PLAN: Labs, diagnostic, radiologic exams reviewed and interpreted by myself and supervising physician. We have reviewed external records in detail Order urine electrolytes, urine creatinine osmolality TPN/diet as per primary team Pain management as per Primary team/surgery Require close monitoring of renal function and electrolytes Order CBC, CMP, TSH, uric acid, serum osmolality, and electrolytes in am Continue with antibiotics as per ID BiPAP as necessary, for respiratory distress Monitor blood pressure adjust medication doses as needed Avoid hypotensive episodes May use Dilaudid 0.5 mg IV every 6 hours as needed for severe pain Monitor blood sugars Strict intake, output, and daily weight should be monitored Please renally adjust medications Avoid nephrotoxic and nonsteroidal drugs Avoid contrast if possible Will continue to monitor renal function, anemia, electrolytes Treatment plan discussed with patient Questions were answered We have discussed with the other team physicians in detail about the care plan We will continue to monitor the patient closely ATTESTATION BY PHYSICIAN I have seen and examined the patient. I reviewed the documentation, medical decision making, and treatment plan as noted by the mid-level provider above. I agree with the findings and plan of care. CIELO PORTILLO MD, [facility] Aug 17, 2025 12:51
--- NOTE | 2025-08-17 13:40 | PN ---
[facility] PROGRESS NOTE Date of Service: Aug 17, 2025 Time of Service: 13:40 SUBJECTIVE: Ms. Gray is a 55-year-old female that was seen and examined today on 07/20/2025. Patient reports that she came to the emergency department with a chief complaint of abdominal pain. Onset was 07/09/2025. Location is all four quadrants. Duration is constant. Character is described as pressure and " like I have a lot of gas trapped. " there was no alleviating factors. There was no aggravating factors. Patient reports associated abdominal swelling. 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 After the discharge she was taking pain medications and her condition started worsening after few days. She is in constant follow up with Dr Gann. Today in the emergency department WBCs 21.2, left shift neutrophils 85.5%, BUN 26, creatinine 3.1, GFR 17, lactic acid 8.0, no urinalysis has been collected or sent to lab, CT of abdomen and pelvis showed of free air in the abdomen which could be a suspected bowel perforation versus postsurgical changes, moderate ascites, fissure post surgical changes. Chest x-ray shows right pleural effusion. Additionally patient had a heart rate of 125, respirations 26, together with leukocytosis and lactic acidosis patient met clinical sepsis criteria additionally patient's blood pressure dropped to 85/50 mmHg requiring vasopressor support therefore meeting criteria for septic shock. Patient will be admitted to the intensive care unit. Emergency room physician spoke with patient's surgeon, Dr. Gann who requested patient be admitted under hospitalist service and she will follow this case along. 07/21/25 Patient was evaluated at the bedside. She was accompanied by her daughter. She is oriented to the time, place and person. She complained of abdominal pain in all the quadrants. She hasn't had bowel movement since Saturday and also is unable to pass flatus at this time. She has guarding, rigidity and tenderness all over the abdomen, showing the signs of peritonitis. She was seen by Dr Gann this m and is planned to be taken to OR this afternoon. Dueñas catheter is in place, as she wasn't able to pass the urine. There is no fever, chills and any other signs of infection. 07/22/25 Patient was evaluated at the bedside. She was accompanied by her daughter. She is oriented to the time, place and person. She underwent Diagnostic laparoscopy, abdominal washout, drain placement and diverting loop ileostomy creation, The procedure revealed Bilious peritonitis, 2 mm perforation of the colonic anastomosis. She is hemodynamically stable with Blood pressure of 110/73 and HR of 83. Currently she complains of abdominal pain which is getting better than yesterday, its 3-4/10 intensity. There is no rigidity. She is anxious about the outcomes and had discussion regarding her current clinical status and lab parameters. There is no fever, chills and any other signs of infection. 07/23/25 Patient was evaluated at the bedside. She was accompanied by her daughter. She is oriented to the time, place and person. She status post diagnostic laparoscopy, abdominal washout, drain placement and diverting loop ileostomy creation. Currently she complains of abdominal pain which is 5/10 intensity. She also complaints of mild lower back pain There is no fever, chills and any other signs of infection. She has CHRIS drain in-situ with clear fluid along with colostomy bag. She is currently tolerating clear liquid diet. 07/24/2025 Patient is seen and examined at the bedside. Vitals blood pressure ranging in 100s/50s, pulse rate 50s, SpO2 greater than 95% on room air. She mentions about experiencing pressure-like discomfort on the right side of the abdomen and pain when she tries to eat. No acute events last night. She denies fever, chills, nausea, vomiting, chest pain. CHRIS output approximately 100cc/hr, serosanguineous fluid. Ileostomy bag in place. She is tolerating clear liquid diet without any nausea/vomiting. Labs hemoglobin 9.8, BUN 38, creatinine improved from 1.6-1.1. 07/25/2025 Patient is seen and examined at the bedside. She complains of abdominal pain which is 7/10 in intensity. No acute events last night. She denies fever, chills, nausea, vomiting, chest pain. CHRIS output approximately 100cc/hr, serosanguineous fluid. Ileostomy bag in place. The patient has been started on spironolactone 25mg BID and Lasix 20 mg once daily. There is high output from CHRIS but it is clear serous, most likely related to her ascites from her history of liver cirrhosis. She is tolerating clear liquid diet without any nausea/vomiting. 07/26/2025 Patient is seen and examined at the bedside. She complains of abdominal pain which remains constant. No acute events last night. She denies fever, chills, nausea, vomiting, chest pain. Patient is status post with a CHRIS drain. The drain has been collecting the serosanguineous fluid secondary to ascites. She has been tolerating liquid diet and her diet has been advanced to soft diet. She still h as bloating for which probiotics and fibers has been recommended. Hemoglobin has gradually trended down to 9.2 and was given IV Venofer. Patient to get up and ambulate and work with physical therapy. 07/27/2025 Patient is seen and examined at the bedside. She complains of abdominal pain which is 6/10 in intensity. No acute events last night. She denies fever, chills, nausea, vomiting, chest pain. Patient is unable to tolerate the soft diet, hence she is currently receiving the liquid diets. The CHRIS drain output is still high and there was small amount of drainage observed in the right ileostomy. 07/28/2025 Patient is seen and examined at the bedside. She complains of abdominal pain which is 9/10 in intensity. No acute events last night. She denies fever, chills, nausea, vomiting, chest pain. Patient reported pain after eating but no nausea or vomiting. WBC is gradually trending up from 8.3-7.3-11.1-11.8. She had lidocaine patch placed this morning. She was started on simethicone 80 mg yesterday. Pertinent she is currently receiving Dilaudid 0.5 mg. Abdominal ultrasound has been ordered for further assessment. 07/29/2025 Patient is seen and examined at the bedside. She continues to complain of severe abdominal pain, rated 9/10 in intensity, unchanged from prior. She is currently receiving Dilaudid 0.5 mg for pain. She reports discomfort related to Dueñas catheterization. She denies fever, chest pain, nausea or vomiting at this time. No acute events were reported overnight. Blood pressure noted today is noted to be 98/54 mm Hg which is slightly low. Per surgery team, stoma is likely to be removed today. Hemoglobin has trended down from 9.7 g/dl to 9.0 g/dl. 07/30/2025 Patient is seen and examined at the bedside. She continues to complain of severe abdominal pain. Her abdominal distention has slightly improved. Dueñas's catheter was removed due to persistent discomfort. We will continue with scheduled removal of the ascites fluid and from CHRIS bulb. Ultrasound of abdomen was concerning for cholelithiasis with biliary sludge and gallbladder distention. HIDA scan was performed today. If consistent with cholecystitis patient will need cholecystostomy tube placement. 07/31/2025 Patient is seen and examined at the bedside. She was accompanied by her daughter. She continues to complain of severe abdominal pain. She is currently on Dilaudid 0.5mg Q4H PRN, which relieves the symptoms for 2-3 hours, after that she develops same level of pain and discomfort again. Currently awaiting the HIDA scan results. Her sodium level is 133 and albumin level is trending downwards from 2.3 to 2.1. Her Iron panel results showed: Iron 20L, TIBC 147L and %sat 16.3L. For her continuos pain she is started on Fentanyl 25mcg. CHRIS drain culture has beens sent. Based on the results of HIDA scan, CT chest will be planned. 08/01/2025: Patient is seen and examined this morning at bedside. She was accompanied by her daughter. The patient complains of severe abdominal pain. She is currently being managed with [place], and Dilaudid for breakthrough pain. HIDA scan results are back, and show acute cholecystitis. Surgery has been made aware of the results. IR has been consulted for cholecystostomy tube placement. The patient will be started on PPN, as recommended by general surgery. The patient follows with Dr. Sol outpatient for her liver cirrhosis. The patients daughter would like her facepiece line supervisor Dr. Sol to be involved in the patients care, and be updated with her status. 08/02/2025: Patient is seen and evaluated in the room 432. She was accompanied by her daughter. She complains of severe abdominal pain. She also complained of bleeding through her vagina, pink tinged urine. Her vitals are in the normal range. Her labs are in the normal range except for Hb is 8.6, Na is 135, K is 5.2, BUN is 4, Glucose is 150, CRP is 103.90. She went for placement of cholecystectomy tube by IR. We did a pelvic exam and ordered a vaginal estrogen cream and urinalysis. Also for her hyperkalemia we checked the potassium again and its 4.1. So we will repeat the labs tomorrow. We ordered a dose of albumin for her. 08/03/2025: Patient is seen and evaluated in the room 432. She has mild abdominal pain today. Her pain improved after the placement for cholecystotomy tube. Her vitals are in the normal range. Her labs are normal except for hemoglobin 8.2, glucose 156, CRP 89.8. Her aerobic and anaerobic culture of drain showed no growth. Gastroenterology saw the patient and they recommended 25 grams of 25% IV albumin q12H for 3 days. Her bleeding through the vagina decreased. The drainage through the left abdomen is 100ml, right abdomen is 20ml, left anterior abdomen 5ml. 08/04/2025: Patient is seen and evaluated in the room 432. She has abdominal pain today. Her vitals are in the normal range. Her labs are normal except for Hb is 8, CRP is 72.10, glucose is 130. Aerobic and anaerobic drain culture showed no growth. She is not able to tolerate her food. The drainage through the left abdomen is 100ml, right abdomen is 20ml, left anterior abdomen 5ml. Gastroenterology is planning to do EGD tomorrow. Surgery wanted to do a CT abdomen and pelvis with IV contrast. CT scan showed perisplenic and infrasplenic fluid collection measuring 6.0 x 6.1 x 8.9 cm, splenomegaly, with spleen measuring 15.2 cm, cholecystostomy tube in situ with decompressed gallbladder, abdominal drain in situ with tip in the pelvis. We ordered T.bilirubin and we will monitor the output from colostomy tube. We are also planning to add metoclopramide. 08/05/2025: Patient is seen and evaluated in the room 432. She has abdominal pain today. Her abdomen is tender to touch and warm. Her vital signs are in the normal range except for BP is 117/45. Her labs are normal except for Hb is 8.2, sodium is 135, creatinine is 0.3, CRP is 60.9 The drain output from left abdomen is 40ml, left anterior abdomen 0ml, right abdomen 0ml. Her saturation is 100% on 10L of O2. Her labs are in the normal range except for Hb is 8.2, HCT is 25.9, sodium is 135, glucose is 107, CRP is 60.90. She underwent endoscopy today and they did biopsy from 3 sites. GI said that they will consult radiology to check whether CHRIS drain and cholecystostomy tube are in place. General surgery will consult IR to evaluate perisplenic fluid collection for potential aspiration. 08/06/2025: Patient is seen and evaluated in the room 432. She has abdominal pain today. Her abdomen is tender to touch and warm. Her vital signs are in the normal range except for 97/63. Her labs are in the normal range except for Hb is 8.1, sodium is 135, blood glucose is 151, CRP 53.60. We are waiting for IR consult for evaluation and for potential aspiration of perisplenic fluid. The drain output from right abdomen is 20ml. 08/07/2025: Patient is seen and evaluated in the room 432. She has abdominal pain today. Her abdomen is tender to touch and warm. Her vital signs are in the normal range except for blood pressure which is 102/60. Her labs are in the normal range except for Hb is 8.5, WBC is 4.4, RDW is 17.3, sodium is 134, glucose is 147. We are waiting for IR consult for evaluation and for potential aspiration of perisplenic fluid. The drain output from right abdomen is 20ml. The [employer] told me that she eats her food after taking her pain medications. Nurse is planning to start full liquid diet for lunch. 08/08/2025: She was evaluated at the bedside this morning. She is AAO x3. she complained of epigastric pain which gets worse with food . Moderate tenderness was appreciated on the epigastric region. Her blood pressure is 99/46, pulse 80. Remarkable lab is for WBC of 4.8, hemoglobin 9, CRP 43.90. She is scheduled with IR for perisplenic fluid aspiration and checking the position of cholecystostomy tube. She is on full liquid diet. She is on Zosyn, fluconazole. Surgery, GI, ID on the board. Rest of the plan as discussed below. 08/09/2025: Patient went to labor custodian for PROCEDURE. As per nurse, her cholecystostomy tube was already correctly positioned but had some stones so tube was flushed. She complained of epigastric and pelvic pain. For pain control, fentanyl patch has been ordered. She is pending perisplenic fluid aspiration by IR. Her blood pressure is 98/58, pulse 90. She is currently NPO. She is on Zosyn, fluconazole. Surgery, GI, ID on the board. Rest of the plan as discussed below. 08/10/2025: Patient was seen and examined at bedside. She underwent CT GUIDED PERISPLENIC PIGTAIL DRAINAGE CATHETER PLACEMENT with Aspiration of perisplenic fluid. There has been 25 ml sanguinous drainage so far in the catheter. Her cholecystostomy tube has had 30 mL drainage in the past 24 hours. She is currently on clear liquid diet tolerating it well. She continues to complain pain in her abdomen without any peritoneal signs. She was started on fentanyl patch yesterday. Gram stain and body fluid culture were sent after drainage of perisplenic abscess which showed RARE GRAM POSITIVE COCCI after 1 day. Patient is currently on Zosyn. 08/11/2025: Patient was seen and examined. She continues to complain of abdominal pain. Her multimodal pain medications were adjusted with fentanyl increased to 25mcg and Dilaudid frequency changed from q.4h to q.6h. She is currently on clear liquid diet and complains of pain while eating. She continues on Zosyn and fluconazole. We are waiting for culture results after drainage of perisplenic abscess. Incision site is clean, dry and intact. Will continue to follow recommendations from ID, General surgery and Nephrology. 08/12/2025: Patient was seen and examined at bedside. She complained of pain in right upper abdomen as well as left lower quadrant, along the drainage catheter insertion. No peritoneal signs present. She is currently on multimodal pain management. Today, we are advancing her to full liquid diet. Culture results have been negative so far. Incision site is clean, dry and intact. Will continue to follow recommendations from ID, General surgery and Nephrology. 08/13/2025: Patient was seen and examined at bedside. She complained of pain in right upper quadrant and left quadrant of abdomen along the line of drainage catheter placement. Comparatively, her pain is better than yesterday and patient states that she feels pain in between pain medication. No peritoneal signs are present. We will follow up with General surgery for CHRIS drain removal as there has been 0 to minimal drainage in the past few days. Patient is currently on full liquid diet. 08/14/2025 Patient is seen and examined at the bedside. She complains of intermittent pain in the left upper quadrant near the drainage catheter site which is well controlled with pain medications. No acute events last night. Vitals blood pressure in 90s/50s. Urine output 1.4 L, stool 1.2 L [ileostomy bag], 23 mL from left abdominal drain, 20 mL from right abdominal drain, 15 mL from RUQ drain over the last 24 hours. She denies fever, chills, chest pain/shortness of breath, tingling/numbness/pain in bilateral lower extremities. She is able to tolerate GI soft/bland diet without any nausea/vomiting. Labs WBC 4.1, hemoglobin stable at 8.9. We will continue parenteral nutrition. 08/15/2025: Patient was seen and examined this morning at bedside. The patient reports continued abdominal pain, worse on her left upper quadrant. The patient states that when she takes her pain medication, the pain resolves. However, without the pain medication, the patient reports that the pain remains prominent. Duloxetine will be started for its dual benefit in managing the abdominal pain and addressing potential underlying mood symptoms that may be amplifying the patients pain perception. I educated the patient on importance of eating her GI soft diet. We will continue to follow ID and surgery recommendations. 08/16/2025: Patient was seen and examined this morning at bedside in room 432. Patient admits to have continued nausea since yesterday and is unable to tolerate any food. Her CHRIS drain was removed yesterday and still continues to have left upper quadrant and right upper quadrant drains. Patient is discontinued from Dilaudid and is currently managed with p.r.n. [place] q.4. Dr. Gann recommended to reduce the dose of TPN to 40 mL to assess if patient's appetite improves. They also changed metoclopramide to scheduled q.12. We will follow the surgery and ID recommendations. 08/17/2025: Patient was examined at bedside in room 432. Patient reports improved nausea and is able to tolerate fruits however still does not have appetite for regular meals. Patient reports mild abdominal tenderness however denies fever, nausea, vomiting. Patient has no abdominal rigidity. Patient has abdominal drains have minimal drainage and shows no signs of infection. We encouraged the patient to eat GI soft diet as tolerated. We will continue to follow recommendations from ID and surgery. REVIEW OF SYSTEMS CONSTITUTIONAL: No fever, chills, or night sweats. NEUROLOGICAL: Denies headache, sensory and motor deficit. CARDIOVASCULAR: Denies any exertional angina, dyspnea on exertion, palpitations . PULMONARY: Denies any shortness of breath, cough, phlegm/sputum, hemoptysis, pleuritic chest pain. GASTROINTESTINAL: Admits to nausea. Denies vomiting. No peritoneal signs obs erved. GENITOURINARY: Denies frequency, urgency, nocturia, hematuria or incontinence. PHYSICAL EXAM GENERAL APPEARANCE: The patient is alert, awake and oriented and bedbound. NEUROLOGICAL: No sensory and motor deficits. CHEST: Normal chest expansion. LUNGS: Normal Vesicular breath sound. Absence of any rales, rhonchi or any wheezing. CARDIOVASCULAR: Regular. S1 and S2 normal. No appreciable rubs, murmurs or gallops. ABDOMEN: Abdomen is soft and slightly tender. Ileostomy creation. Cholecystostomy and left upper abdominal quadrant catheter in place. Absence of guarding, rigidity and rebound tenderness GENITOURINARY: No suprapubic tenderness. No costovertebral angle tenderness. Vital Signs (last 8hr) Date Time Temp Pulse Resp B/P (MAP) Pulse Ox O2 Delivery O2 Flow Rate FiO2 08/17/25 12:10 98.1 62 18 103/74 96 Room Air 08/17/25 07:52 98.2 84 19 109/63 96 Room Air LABS: Laboratory: Test 08/17/25 10:50 08/17/25 03:40 08/16/25 04:10 Range/Units Whole Blood Glucose 127 H 70-110 MG/DL White Blood Count 5.5 4.8-10.8 K/uL Red Blood Count 3.05 L 4.00-5.50 MIL/uL Hemoglobin 9.0 L 12.0-16.0 g/dL Hematocrit 28.4 L 36-48 % Mean Corpuscular Volume 93.1 79-99 fL Mean Corpuscular Hemoglobin 29.5 27.0-33.0 pg Mean Corpuscular Hemoglobin Concent 31.7 L 32.0-36.0 g/dL Red Cell Distribution Width 17.2 H 11.0-15.5 % Platelet Count 193 130-400 K/uL Mean Platelet Volume 9.5 7.5-10.5 fL Immature Granulocyte % (Auto) 2.9 H 0-1 % Neutrophils (%) (Auto) 69.8 40.0-77.0 % Lymphocytes (%) (Auto) 12.8 L 21.0-51.0 % Monocytes (%) (Auto) 9.2 3.0-13.0 % Eosinophils (%) (Auto) 4.9 0.0-8.0 % Basophils (%) (Auto) 0.4 0.0-5.0 % Neutrophils # (Auto) 3.9 1.8-7.7 K/uL Lymphocytes # (Auto) 0.7 L 1.0-4.8 K/uL Monocytes # (Auto) 0.5 0.1-1.0 K/uL Eosinophils # (Auto) 0.27 0.00-0.70 K/uL Basophils # (Auto) 0.02 0.00-0.20 K/uL Absolute Immature Granulocyte (auto 0.16 0-1 K/uL Nucleated Red Blood Cells 0.0 0.0-0.19 % Sodium Level 128 L 136-145 mmol/L Potassium Level 4.3 3.5-5.1 mmol/L Chloride Level 99 L 101-111 mmol/L Carbon Dioxide Level 24 21-32 mmol/L Blood Urea Nitrogen 12 7-18 mg/dL Creatinine 0.5 0.5-1.0 mg/dL Glomerular Filtration Rate Calc 109 >90 mL/min Random Glucose 112 H 70-105 mg/dL Total Calcium 8.6 8.5-10.1 mg/dL Total Bilirubin 0.4 0.2-1.0 mg/dL Aspartate Amino Transf (AST/SGOT) 38 H 10-37 U/L Alanine Aminotransferase (ALT/SGPT) 14 12-78 U/L Alkaline Phosphatase 150 H 50-136 U/L C-Reactive Protein, Quantitative 16.10 H 0.5-3.0 mg/L Total Protein 7.0 6.0-8.3 g/dL Albumin 2.4 L 3.5-5.0 g/dL Current Medications Medications (Trade) Dose Ordered Sig/Gregory Route PRN Reason Start Time Stop Time Status Last Admin Dose Admin Acetaminophen (TYLenol 500MG TAB) 500 mg Q6H6 PRN PO MILD PAIN (1-3) 07/27/25 16:30 08/07/25 12:15 DC Acetaminophen (TYLenol 500MG TAB) 500 mg Q6H6 PRN PO MILD PAIN (1-3) 08/07/25 10:00 08/07/25 10:03 DC Acetaminophen (TYLenol 650MG SUPPOSITORY) 650 mg Q6H PRN RC MILD PAIN (1-3) 07/21/25 00:00 07/27/25 16:22 DC Acetaminophen/ Hydrocodone Bitart (NORco 5/325MG) 1 tab Q4H PRN PO MODERATE PAIN (4-6) 07/31/25 16:30 08/05/25 16:29 DC 08/05/25 14:57 1 TAB Acetaminophen/ Hydrocodone Bitart (NORco 5/325MG) 1 tab Q4H PRN PO MODERATE PAIN (4-6) 08/07/25 12:30 08/12/25 12:29 DC 08/12/25 00:46 1 TAB Acetaminophen/ Hydrocodone Bitart (NORco 5/325MG) 1 tab Q4H PRN PO MODERATE PAIN (4-6) 08/12/25 16:30 08/17/25 16:29 08/17/25 10:17 1 TAB Albumin Human 50 ml @ 100 mls/hr Q12H IV 08/02/25 21:30 08/05/25 09:59 DC 08/05/25 10:12 100 MLS/HR Albumin Human 50 ml @ 0 mls/hr Q12H IV 08/02/25 18:30 08/02/25 20:04 DC Albumin Human 100 ml @ 0 mls/hr ONCE IV 07/25/25 12:00 07/26/25 11:59 DC 07/25/25 13:43 100 MLS/HR Clotrimazole (Lotrimin) 1 GM BID TP 07/29/25 21:00 08/28/25 20:59 08/16/25 21:27 30 GM Cyclobenzaprine HCl (Cyclobenzaprine HCl) 5 mg TID PO 07/25/25 14:00 07/26/25 14:00 DC 07/26/25 14:19 5 MG Duloxetine HCl (CymbALTA 30 mg CAP) 30 mg BID PO 08/15/25 21:00 09/14/25 20:59 08/17/25 09:46 30 MG Fat Emulsion Intravenous 250 ml @ 42 mls/hr DAILY10 IV 08/13/25 10:00 09/12/25 09:59 08/17/25 09:47 42 MLS/HR Fentanyl (DURAgesic 12 MCG/HR PATCH) 12 mcg Q72H TD 08/09/25 13:00 08/09/25 15:19 DC Fentanyl (DURAgesic 12 MCG/HR PATCH) 12 mcg Q72H TD 08/09/25 15:30 08/11/25 10:32 DC 08/09/25 15:38 12 MCG Fentanyl (DURAgesic 25 MCG/HR PATCH) 25 mcg Q72H TD 07/31/25 14:30 07/31/25 14:44 DC Fentanyl (DURAgesic 25 MCG/HR PATCH) 25 mcg Q72H TD 08/12/25 15:30 08/12/25 16:00 DC Fentanyl (DURAgesic 25 MCG/HR PATCH) 25 mcg Q72H TD 08/12/25 21:00 08/17/25 20:59 08/16/25 00:02 25 MCG Fluconazole/ Sodium Chloride (DiFLUCan 200 MG/ NS 100 ML) 200 mg Q24H IVPB 07/21/25 21:00 08/20/25 20:59 08/16/25 21:25 200 MG Furosemide (LASix 20MG TAB) 20 mg DAILY PO 07/25/25 11:00 08/02/25 11:53 DC 08/02/25 09:42 20 MG Gabapentin (NEURontin 100 mg CAP) 100 mg TID PO 07/29/25 14:00 08/02/25 09:21 DC 08/01/25 20:14 100 MG Gabapentin (NEURontin 100 mg CAP) 100 mg TID PO 08/11/25 21:00 09/10/25 20:59 08/17/25 09:46 100 MG Home Med (Compound Po Narcotic) HS TD 08/12/25 21:00 09/11/25 20:59 Hydromorphone HCl (DiLAUDid 0.5MG INJ) 0.5 mg Q4H PRN IVP SEVERE PAIN (7-10) 07/24/25 10:00 07/29/25 09:59 DC 07/29/25 08:22 0.5 MG Hydromorphone HCl (DiLAUDid 0.5MG INJ) 0.5 mg Q4H PRN IVP SEVERE PAIN (7-10) 07/29/25 13:30 08/03/25 13:29 DC 08/03/25 13:09 0.5 MG Hydromorphone HCl (DiLAUDid 0.5MG INJ) 0.5 mg Q4H PRN IVP SEVERE PAIN (7-10) 08/03/25 18:00 08/07/25 10:03 DC 08/07/25 05:09 0.5 MG Hydromorphone HCl (DiLAUDid 0.5MG INJ) 0.5 mg Q4H PRN IVP SEVERE PAIN (7-10) 08/07/25 10:00 08/11/25 10:32 DC 08/10/25 20:27 0.5 MG Hydromorphone HCl (DiLAUDid 0.5MG INJ) 0.5 mg Q6H PRN IVP SEVERE PAIN (7-10) 08/11/25 11:00 08/16/25 10:59 DC 08/15/25 16:03 0.5 MG Insulin Human Regular (humuLIN R 100 UNIT/ML 3ML) INSULIN SLIDING SCAL... ACHS SQ 07/21/25 07:30 08/20/25 07:29 08/12/25 22:36 3 UNIT Ketorolac Tromethamine (toRADol) 15 mg Q8H PRN IM MODERATE PAIN (4-6) 08/15/25 18:30 08/16/25 06:57 DC 08/16/25 00:01 15 MG Lactated Ringer's 1,000 ml @ 75 mls/hr [id number] IV 07/21/25 00:00 07/21/25 13:17 DC 07/21/25 02:57 75 MLS/HR Lactated Ringer's 1,000 ml @ 75 mls/hr [id number] IV 07/21/25 13:30 07/24/25 11:09 DC 07/24/25 09:27 75 MLS/HR Lactobacillus Rhamnosus ([facility]) 1 each DAILY20 PO 07/26/25 20:00 08/25/25 19:59 08/16/25 21:25 1 EACH Lidocaine (Lidoderm Patch 5%) 1 patch DAILY TP 07/28/25 09:00 08/27/25 08:59 08/16/25 10:01 1 PATCH Lidocaine HCl/Al Hydroxide/Mg Hydroxide/ Dicyclomine HCl 20ML OR AD ONCE PO 08/06/25 16:30 08/07/25 16:29 DC 08/06/25 16:45 20 ML Magnesium Sulfate 50 ml @ 0 mls/hr PROTOCOL PRN IV MAGNESIUM PROTOCOL 07/21/25 07:00 08/20/25 06:59 08/01/25 06:05 25 MLS/HR Methocarbamol (methoCARBamol) 500 mg BID PO 08/11/25 16:00 09/10/25 15:59 08/17/25 09:46 500 MG Metoclopramide HCl (regLAN 10MG IV) 5 mg BID IVP 08/04/25 21:00 09/03/25 20:59 08/17/25 09:47 5 MG Metronidazole/ Sodium Chloride (flaGYL) 500 mg Q8H IV 07/21/25 14:00 07/21/25 13:40 DC Morphine Sulfate (morPHINE 2MG SYG) 2 mg Q4H PRN IVP SEVERE PAIN (7-10) 07/21/25 00:30 07/21/25 13:18 DC 07/21/25 04:46 2 MG Morphine Sulfate (morPHINE 4MG SYG) 4 mg Q3H PRN IV MODERATE PAIN (4-6) 07/21/25 13:30 07/26/25 16:29 DC 07/26/25 10:51 4 MG Norepinephrine 250 ml @ 0 mls/hr PROTOCOL IV 07/20/25 23:30 08/03/25 08:27 DC 07/21/25 10:56 18.45 MLS/HR Ondansetron HCl (zoFRAN 4MG INJ) 4 mg Q4H PRN IVP NAUSEA 07/21/25 13:30 08/16/25 17:50 DC 08/16/25 10:23 4 MG Ondansetron HCl (zoFRAN 4MG INJ) 4 mg Q6H IVP 08/16/25 18:00 09/15/25 17:59 08/17/25 13:26 4 MG Ondansetron HCl (zoFRAN 4MG INJ) 4 mg Q6H PRN IV NAUSEA/VOMITING 07/21/25 00:00 07/21/25 13:18 DC Pantoprazole Sodium (PROTonix 40MG INJ) 40 mg BID IV 07/26/25 21:00 08/20/25 08:59 08/17/25 09:47 40 MG Pantoprazole Sodium (PROTonix 40MG INJ) 40 mg BID IVP 08/05/25 21:00 08/06/25 08:39 DC 08/05/25 20:25 40 MG Pantoprazole Sodium (PROTonix 40MG INJ) 40 mg DAILY IV 07/21/25 09:00 07/26/25 09:31 DC 07/26/25 08:55 40 MG Pharmacy Profile Note (Pharmacy Communication) 1 each ONCE MISC 07/21/25 15:30 07/21/25 15:16 DC Pharmacy Profile Note (Pharmacy Communication) 1 each ONCE MISC 08/16/25 16:00 08/15/25 21:12 DC Pharmacy Profile Note (Pharmacy Communication) 1 each ONCE MISC 08/06/25 16:00 08/07/25 07:07 DC Piperacillin Sod/ Tazobactam Sod 50 ml @ 200 mls/hr ONCE STAT IVPB 07/20/25 19:15 07/20/25 19:29 DC 07/20/25 20:32 200 MLS/HR Piperacillin Sod/ Tazobactam Sod (Zosyn 3.375gm+NS 50ml) 3.375 gm Q12H IV 07/21/25 00:00 07/31/25 00:00 DC 07/30/25 23:55 3.375 GM Piperacillin Sod/ Tazobactam Sod (Zosyn 3.375gm+NS 50ml) 3.375 gm Q8H IVPB 07/31/25 11:30 08/10/25 11:29 DC 08/10/25 04:05 3.375 GM Piperacillin Sod/ Tazobactam Sod (Zosyn 3.375gm+NS 50ml) 3.375 gm Q8H IVPB 08/10/25 13:00 08/20/25 12:59 08/17/25 13:33 3.375 GM Potassium Chloride 100 ml @ 100 mls/hr AD PRN IV POTASSIUM PROTOCOL 07/24/25 08:30 08/23/25 08:29 07/30/25 06:23 100 MLS/HR Potassium Chloride (K-Dur/Klor-Con 20meq) 20 meq AD PRN PO POTASSIUM PROTOCOL 07/24/25 08:30 08/23/25 08:29 07/27/25 20:33 20 MEQ Potassium Chloride (KCl 10% Elixir 20meq/15ml) 20 meq AD PRN PO POTASSIUM PROTOCOL 07/24/25 08:30 08/23/25 08:29 07/31/25 08:15 20 MEQ Psyllium Hydrophilic Mucilloid (Metamucil) 1 tbs BID PO 07/26/25 21:00 08/25/25 20:59 08/17/25 09:46 1 TBS Simethicone (Mylicon) 80 mg Q6H6 PO 07/27/25 12:00 08/26/25 11:59 08/17/25 13:25 80 MG Sodium Bicarbonate 150 meq/Sodium Chloride 1,150 ml @ 0 mls/hr Q0M IVP 07/21/25 14:00 07/26/25 09:31 DC Sodium Chloride (NS 50ml) 50 ml AD IV 07/31/25 11:30 07/31/25 11:12 DC Sodium Chloride (Normal Saline Flush) 10 ml Q8H IJ 08/09/25 11:00 09/08/25 10:59 08/17/25 11:31 10 ML Spironolactone (Aldactone 25mg) 25 mg BID PO 07/25/25 21:00 07/26/25 09:01 DC 07/26/25 08:56 25 MG Sucralfate (Carafate) 1 gm ACHS PO 07/29/25 21:00 08/28/25 20:59 08/17/25 11:27 1 GM Thiamine HCl (Vitamin B-1) 100 mg DAILY IVP 07/22/25 21:00 08/21/25 20:59 08/17/25 09:47 100 MG Thiamine HCl 100 mg/Sodium Chloride 50 ml @ 100 mls/hr Q24H IM 07/21/25 15:30 07/21/25 16:25 DC Vancomycin HCl (Vancomycin 1g/ 250ml Kit) 1 gm ONCE STAT IV 07/20/25 21:23 07/20/25 21:26 DC 07/20/25 22:06 1 GM Vasopressin 20 units/Sodium Chloride 100 ml @ 0 mls/hr PROTOCOL IV 07/21/25 00:30 08/03/25 08:27 DC 07/21/25 00:10 9 MLS/HR DIAGNOSTICS / RADIOLOGY: [ ] ASSESSMENT: Suspected Bowel Perforation/ Anastomotic Leak POA Acute cholecystitis, not POA s/p Cholecystotomy tube placement 08/02/2025 Bilious peritonitis s/p Diagnostic laparoscopy, abdominal washout, drain placement and diverting loop ileostomy creation Perisplenic and infrasplenic fluid collection with splenomegaly - suspected abscess s/p drainage with catheter placement Hyponatremia, resolved Bacterial peritonitis [ESBL Ecoli] Cholelithiasis Atrophic vaginitis Hyperkalemia, resolved Iron Deficiency anemia, POA Diabetes Mellitus Type 2 POA Acute Kidney Injury POA, resolved Septic Shock POA, resolved Cirrhosis of liver POA Esophageal Varices Recent Robotic takedown of splenic flexure mobilization, robotic takedown of colovesical fistula with sigmoid colectomy and end-to-end anastomosis surgery PLAN: Bilious peritonitis status post Diagnostic laparoscopy, abdominal washout, drain placement and diverting loop ileostomy creation -Continue close monitoring of the patient -continue physical therapy -No output in CHRIS drain. Follow up with surgery regarding CHRIS drain removal. -Continue Zosyn [day 28] and fluconazole [day 28]. -Probiotics and Fibers have been added for bloating. -Continue Protonix 40mg IV BID - Continue fentanyl 25 mcg Q72H , [place] 5 mg q.4h p.r.n.,for pain management - As per surgery, continue methocarbamol and gabapentin. Perisplenic and infrasplenic fluid collection with splenomegaly * CT scan showed perisplenic and infrasplenic fluid collection measuring 6.0 x 6.1 x 8.9 cm, splenomegaly, with spleen measuring 15.2 cm * IR drained the perisplenic and intra splenic fluid with placement of drainage catheter. * Cultures resulted in now growth * Continue Zosyn and fluconazole * Follow ID recommendations Bacterial Peritonitis * Post Surgical patient with Bacterial peritonitis positive for ESBL * Culture and sensitivity shows susceptibility to Zosyn, Gentamicin and Meropenem. * Likely secondary to post-operative intraabdominal infection with risk of ongoing contamination. * Currently patient is on Zosyn (Day 28) * For her continuos pain she is started on Fentanyl 25mcg. Cholelithiasis * Patient complained of upper abdominal pain * Ultrasound abdomen showed: Cirrhotic-appearing liver * Cholelithiasis and biliary sludge with gallbladder distension and Small volume ascites. * Hida scan shows acute cholecystitis. * IR did a Fluoroscopy and ultrasound-guided placement of cholecystotomy tube and cholecystogram on 08/02/2025. * IR evaluated patient in the labor custodian for cholecystostomy tube placement. Patient was found to have normally positioned tube with some stones for which the tube was flushed.. Small Bowel Obstruction (Resolved) * Abdominal Xray showed: Dilated small bowel loops are seen in mid abdomen * Pain management(avoid excess opioids if ileus is suspected) * Monitor for resolution vs progression of Ileus/obstruction. 07/29/25 Bowel Perforation, Dehiscence of the anastomosis - Patient had repair of colovesicular fistula with sigmoid colon resection and anastomosis on 07/09/25. - CT abdominal pelvis w/contrast done on 07/20/2025 showed Free air in the upper abdomen is seen, suggesting perforated bowel vs post surgical changes. No obstruction. -underwent Diagnostic laparoscopy, abdominal washout, drain placement and diverting loop ileostomy creation for biliary peritonitis Iron Deficiency anemia * Hemoglobin today is 8.9. * Anemia panel has been ordered. Results showed Iron 24L, %sat 16.3 and TIBC 147L. 07/30/25 * Received 2 doses of Iron sucrose (venofer) so far Recommend trending Hgb and transfuse as needed to goal Hgb >7 Acute Kidney Injury, Resolved * Creatinine improved * Initial FeNA is 0.1 %, probably secondary to dehydration and NSAIDs overuse. * initial Urine sodium is < 13 and urine creatinine is 132.17. * Avoid nephrotoxic agents, eg. NSAIDS. * Weight patient daily. * Monitor intake and output. Cirrhosis of liver -Patient has a past history of cirrhosis of liver. - Liver functions are within normal limits. -Avoid NSAIDs and high dose acetaminophen. -Maintain appropriate volume of the patient. Supportive measures - Multimodal pain management - Duloxetine started. 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 -Monitor Vitals and perform morning labs regularly Continue GI prophylaxis with Pantop Continue DVT prophylaxis with SCDs, we will avoid heparin due to history of allergies to porcine ATTESTATION BY PHYSICIAN I have seen and examined the patient. I reviewed the documentation, medical decision making, and treatment plan as noted by the resident physician above. I agree with the findings and plan of care. AYAKA BARR MD, HARSHAVARDHA MD Aug 17, 2025 13:40
[2025-08-17 17:13] LABS: CREATININE,URINE RANDOM 58.05 mg/dL (30-135)
--- NOTE | 2025-08-17 20:45 | NUR ---
ILEOSTOMY CHANGE ILEOSTOMY APPLIANCE CHANGED. CURRENT APPLIANCE WITH LEAKING. OSTOMY CARE PROVIDED. STOMA PINK, SURROUNDING SKIN WITH MILD IRRITATION. NEW APPLIANCE APPLIED. PATIENT TOLERATED WELL NO SIGNS OF PAIN OR DISCOMFORT.
[2025-08-17] MEDS: HYDROcodone/APAP 5/325 1 TAB TABLET PO PRN (21:42)
--- NOTE | 2025-08-17 21:57 | PN ---
INFECTIOUS DISEASE PROGRESS NOTE Date of Service: Aug 17, 2025 SUBJECTIVE: Patient was seen and examined at bedside in room 432. Patient is awake, alert and oriented x3. Patient continues on scheduled Zofran, tolerating diet a little better and the TPN has been decreased to 20 mL/hour. No fever, temperature is 98.2. Continues on Zosyn and fluconazole. Per report plan is to discharge patient later on this week. PHYSICAL EXAM EYES: Anicteric. Pupils equal and reactive. HENT: No oral thrush seen, moist Oral mucosa. NECK: Supple, no JVD or thyromegaly. LUNGS: Good air entry. No rales, no rhonchi. CARDIOVASCULAR: S1, S2 regular. No murmur heard. ABDOMEN: Soft, non tender, bowel sounds present. Left Perisplenic abscess percutaneous drainage catheter. Right ileostomy. Right cholecystostomy tube. CENTRAL NERVOUS SYSTEM: Awake, alert, oriented x 3. SKIN: No rashes, no swelling. LYMPHATICS: No peripheral lymphadenopathy. MUSCULOSKELETAL: No joint swelling, erythema or tenderness. EXTREMITIES: No cyanosis or clubbing. BACK: No deformity, no pressure ulcer. GENITOURINARY: No dysuria or hematuria. Vital Sign (Last 12 Hours) 08/17/25 08/17/25 08/17/25 12:10 16:02 20:00 Temp 98.1 98.1 97.5 Pulse 62 85 85 Resp 18 19 18 B/P (MAP) 103/74 139/73 107/64 Pulse Ox 96 95 93 O2 Delivery Room Air Room Air Room Air Intake & Output (last 24hrs) 08/16/25 08/16/25 08/17/25 15:00 23:00 07:00 Intake Total 1082.0 ml 240 ml 480 ml Output Total 200 ml 550 ml 1070 ml Balance 882.0 ml -310 ml -590 ml LABS: Laboratory: Test 08/17/25 19:13 08/17/25 16:45 08/17/25 03:40 08/16/25 04:10 Range/Units Whole Blood Glucose 126 H 70-110 MG/DL Urine Random Creatinine 58.05 30-135 mg/dL Urine Random Sodium < 13 L 40-220 mmol/l Urine Random Potassium 29 25-125 mmol/L Urine Random Chloride 27 L 110-250 mmol/L White Blood Count 5.5 4.8-10.8 K/uL Red Blood Count 3.05 L 4.00-5.50 MIL/uL Hemoglobin 9.0 L 12.0-16.0 g/dL Hematocrit 28.4 L 36-48 % Mean Corpuscular Volume 93.1 79-99 fL Mean Corpuscular Hemoglobin 29.5 27.0-33.0 pg Mean Corpuscular Hemoglobin Concent 31.7 L 32.0-36.0 g/dL Red Cell Distribution Width 17.2 H 11.0-15.5 % Platelet Count 193 130-400 K/uL Mean Platelet Volume 9.5 7.5-10.5 fL Immature Granulocyte % (Auto) 2.9 H 0-1 % Neutrophils (%) (Auto) 69.8 40.0-77.0 % Lymphocytes (%) (Auto) 12.8 L 21.0-51.0 % Monocytes (%) (Auto) 9.2 3.0-13.0 % Eosinophils (%) (Auto) 4.9 0.0-8.0 % Basophils (%) (Auto) 0.4 0.0-5.0 % Neutrophils # (Auto) 3.9 1.8-7.7 K/uL Lymphocytes # (Auto) 0.7 L 1.0-4.8 K/uL Monocytes # (Auto) 0.5 0.1-1.0 K/uL Eosinophils # (Auto) 0.27 0.00-0.70 K/uL Basophils # (Auto) 0.02 0.00-0.20 K/uL Absolute Immature Granulocyte (auto 0.16 0-1 K/uL Nucleated Red Blood Cells 0.0 0.0-0.19 % Sodium Level 128 L 136-145 mmol/L Potassium Level 4.3 3.5-5.1 mmol/L Chloride Level 99 L 101-111 mmol/L Carbon Dioxide Level 24 21-32 mmol/L Blood Urea Nitrogen 12 7-18 mg/dL Creatinine 0.5 0.5-1.0 mg/dL Glomerular Filtration Rate Calc 109 >90 mL/min Random Glucose 112 H 70-105 mg/dL Total Calcium 8.6 8.5-10.1 mg/dL Total Bilirubin 0.4 0.2-1.0 mg/dL Aspartate Amino Transf (AST/SGOT) 38 H 10-37 U/L Alanine Aminotransferase (ALT/SGPT) 14 12-78 U/L Alkaline Phosphatase 150 H 50-136 U/L C-Reactive Protein, Quantitative 16.10 H 0.5-3.0 mg/L Total Protein 7.0 6.0-8.3 g/dL Albumin 2.4 L 3.5-5.0 g/dL ASSESSMENT: Acute cholecystitis, s/p cholecystostomy tube placement on 08/02/2025. Concern for cholecystostomy tube dislodgement status post cholecystogram with findings of multiple gallstones on 08/09/2025. Perisplenic abscess, s/p CT-guided drainage placement on 08/09/2025. Persistent abdominal pain, s/p EGD with findings acute gastritis. Septic shock, resolving. Generalized peritonitis with ESBL and E coli infection. Infection with multidrug resistant organism. Hypoalbuminemia, improving. Suspected bowel perforation, s/p diagnostic laparoscopy, abdominal washout, ileostomy creation and CHRIS drain placement on 07/21/2025. Diabetes mellitus. Recent colovesical fistula repair with sigmoid colon resection and anastomosis on 07/09/2025 PLAN: Continue Zosyn. Continue fluconazole. Continue pain management. Continue GI prophylaxis. Continue antidiabetics. Continue nutritional support, currently on GI soft and the PPN rate has been decreased. Continue drainage tube care. Continue physical therapy. This case was reviewed and discussed with my supervising physician Dr. Roger and the above assessment and plan was formulated and agreed upon. ATTESTATION BY PHYSICIAN I have seen and examined the patient. I reviewed the documentation, medical decision making, and treatment plan as noted by the mid-level provider above. I agree with the findings and plan of care. AMIE ROGER MD, [facility] Aug 17, 2025 21:57
[2025-08-18] VITALS (7 sets, daily range): BP systolic 102–114; BP diastolic 56–74; PULSE 72–87; RESP 16–20; TEMP 98–98.7; O2SAT 94–97
[2025-08-18 03:51] LABS: IMMATURE GRANULOCYTE ABSOLUTE 0.12 K/uL (0-1); NUCLEATED RED BLOOD CELLS 0.0 % (0.0-0.19); PLATELET COUNT (AUTO) 220 K/uL (130-400); RED BLOOD CELL COUNT(AUTO) 3.20 MIL/uL (4.00-5.50); RED CELL DISTRIBUTION WIDTH 17.5 % (11.0-15.5); WHITE BLOOD COUNT (AUTO) 4.8 K/uL (4.8-10.8)
[2025-08-18 04:29] LABS: ASPARTATE AMINOTRANSFERASE 51.0 U/L (10-37); CREATININE 0.7 mg/dL (0.5-1.0); GLOMERULAR FILTR. RATE CALC 101.0 mL/min (>90); GLUCOSE,RANDOM 97.0 mg/dL (70-105); PHOSPHORUS 2.9 mg/dL (2.5-4.9); SODIUM SERUM 130.0 mmol/L (136-145); TOTAL PROTEIN, SERUM 7.6 g/dL (6.0-8.3); UREA NITROGEN, BLOOD 9.0 mg/dL (7-18)
--- NOTE | 2025-08-18 14:07 | PN ---
[facility] PROGRESS NOTE Date of Service: Aug 18, 2025 Time of Service: 14:07 SUBJECTIVE: Ms. Gray is a 55-year-old female that was seen and examined today on 07/20/2025. Patient reports that she came to the emergency department with a chief complaint of abdominal pain. Onset was 07/09/2025. Location is all four quadrants. Duration is constant. Character is described as pressure and " like I have a lot of gas trapped. " there was no alleviating factors. There was no aggravating factors. Patient reports associated abdominal swelling. 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 After the discharge she was taking pain medications and her condition started worsening after few days. She is in constant follow up with Dr Gann. Today in the emergency department WBCs 21.2, left shift neutrophils 85.5%, BUN 26, creatinine 3.1, GFR 17, lactic acid 8.0, no urinalysis has been collected or sent to lab, CT of abdomen and pelvis showed of free air in the abdomen which could be a suspected bowel perforation versus postsurgical changes, moderate ascites, fissure post surgical changes. Chest x-ray shows right pleural effusion. Additionally patient had a heart rate of 125, respirations 26, together with leukocytosis and lactic acidosis patient met clinical sepsis criteria additionally patient's blood pressure dropped to 85/50 mmHg requiring vasopressor support therefore meeting criteria for septic shock. Patient will be admitted to the intensive care unit. Emergency room physician spoke with patient's surgeon, Dr. Gann who requested patient be admitted under hospitalist service and she will follow this case along. 07/21/25 Patient was evaluated at the bedside. She was accompanied by her daughter. She is oriented to the time, place and person. She complained of abdominal pain in all the quadrants. She hasn't had bowel movement since Saturday and also is unable to pass flatus at this time. She has guarding, rigidity and tenderness all over the abdomen, showing the signs of peritonitis. She was seen by Dr Gann this m and is planned to be taken to OR this afternoon. Dueñas catheter is in place, as she wasn't able to pass the urine. There is no fever, chills and any other signs of infection. 07/22/25 Patient was evaluated at the bedside. She was accompanied by her daughter. She is oriented to the time, place and person. She underwent Diagnostic laparoscopy, abdominal washout, drain placement and diverting loop ileostomy creation, The procedure revealed Bilious peritonitis, 2 mm perforation of the colonic anastomosis. She is hemodynamically stable with Blood pressure of 110/73 and HR of 83. Currently she complains of abdominal pain which is getting better than yesterday, its 3-4/10 intensity. There is no rigidity. She is anxious about the outcomes and had discussion regarding her current clinical status and lab parameters. There is no fever, chills and any other signs of infection. 07/23/25 Patient was evaluated at the bedside. She was accompanied by her daughter. She is oriented to the time, place and person. She status post diagnostic laparoscopy, abdominal washout, drain placement and diverting loop ileostomy creation. Currently she complains of abdominal pain which is 5/10 intensity. She also complaints of mild lower back pain There is no fever, chills and any other signs of infection. She has CHRIS drain in-situ with clear fluid along with colostomy bag. She is currently tolerating clear liquid diet. 07/24/2025 Patient is seen and examined at the bedside. Vitals blood pressure ranging in 100s/50s, pulse rate 50s, SpO2 greater than 95% on room air. She mentions about experiencing pressure-like discomfort on the right side of the abdomen and pain when she tries to eat. No acute events last night. She denies fever, chills, nausea, vomiting, chest pain. CHRIS output approximately 100cc/hr, serosanguineous fluid. Ileostomy bag in place. She is tolerating clear liquid diet without any nausea/vomiting. Labs hemoglobin 9.8, BUN 38, creatinine improved from 1.6-1.1. 07/25/2025 Patient is seen and examined at the bedside. She complains of abdominal pain which is 7/10 in intensity. No acute events last night. She denies fever, chills, nausea, vomiting, chest pain. CHRIS output approximately 100cc/hr, serosanguineous fluid. Ileostomy bag in place. The patient has been started on spironolactone 25mg BID and Lasix 20 mg once daily. There is high output from CHRIS but it is clear serous, most likely related to her ascites from her history of liver cirrhosis. She is tolerating clear liquid diet without any nausea/vomiting. 07/26/2025 Patient is seen and examined at the bedside. She complains of abdominal pain which remains constant. No acute events last night. She denies fever, chills, nausea, vomiting, chest pain. Patient is status post with a CHRIS drain. The drain has been collecting the serosanguineous fluid secondary to ascites. She has been tolerating liquid diet and her diet has been advanced to soft diet. She still h as bloating for which probiotics and fibers has been recommended. Hemoglobin has gradually trended down to 9.2 and was given IV Venofer. Patient to get up and ambulate and work with physical therapy. 07/27/2025 Patient is seen and examined at the bedside. She complains of abdominal pain which is 6/10 in intensity. No acute events last night. She denies fever, chills, nausea, vomiting, chest pain. Patient is unable to tolerate the soft diet, hence she is currently receiving the liquid diets. The CHRIS drain output is still high and there was small amount of drainage observed in the right ileostomy. 07/28/2025 Patient is seen and examined at the bedside. She complains of abdominal pain which is 9/10 in intensity. No acute events last night. She denies fever, chills, nausea, vomiting, chest pain. Patient reported pain after eating but no nausea or vomiting. WBC is gradually trending up from 8.3-7.3-11.1-11.8. She had lidocaine patch placed this morning. She was started on simethicone 80 mg yesterday. Pertinent she is currently receiving Dilaudid 0.5 mg. Abdominal ultrasound has been ordered for further assessment. 07/29/2025 Patient is seen and examined at the bedside. She continues to complain of severe abdominal pain, rated 9/10 in intensity, unchanged from prior. She is currently receiving Dilaudid 0.5 mg for pain. She reports discomfort related to Dueñas catheterization. She denies fever, chest pain, nausea or vomiting at this time. No acute events were reported overnight. Blood pressure noted today is noted to be 98/54 mm Hg which is slightly low. Per surgery team, stoma is likely to be removed today. Hemoglobin has trended down from 9.7 g/dl to 9.0 g/dl. 07/30/2025 Patient is seen and examined at the bedside. She continues to complain of severe abdominal pain. Her abdominal distention has slightly improved. Dueñas's catheter was removed due to persistent discomfort. We will continue with scheduled removal of the ascites fluid and from CHRIS bulb. Ultrasound of abdomen was concerning for cholelithiasis with biliary sludge and gallbladder distention. HIDA scan was performed today. If consistent with cholecystitis patient will need cholecystostomy tube placement. 07/31/2025 Patient is seen and examined at the bedside. She was accompanied by her daughter. She continues to complain of severe abdominal pain. She is currently on Dilaudid 0.5mg Q4H PRN, which relieves the symptoms for 2-3 hours, after that she develops same level of pain and discomfort again. Currently awaiting the HIDA scan results. Her sodium level is 133 and albumin level is trending downwards from 2.3 to 2.1. Her Iron panel results showed: Iron 20L, TIBC 147L and %sat 16.3L. For her continuos pain she is started on Fentanyl 25mcg. CHRIS drain culture has beens sent. Based on the results of HIDA scan, CT chest will be planned. 08/01/2025: Patient is seen and examined this morning at bedside. She was accompanied by her daughter. The patient complains of severe abdominal pain. She is currently being managed with [place], and Dilaudid for breakthrough pain. HIDA scan results are back, and show acute cholecystitis. Surgery has been made aware of the results. IR has been consulted for cholecystostomy tube placement. The patient will be started on PPN, as recommended by general surgery. The patient follows with Dr. Sol outpatient for her liver cirrhosis. The patients daughter would like her water softener servicer and installer Dr. Sol to be involved in the patients care, and be updated with her status. 08/02/2025: Patient is seen and evaluated in the room 432. She was accompanied by her daughter. She complains of severe abdominal pain. She also complained of bleeding through her vagina, pink tinged urine. Her vitals are in the normal range. Her labs are in the normal range except for Hb is 8.6, Na is 135, K is 5.2, BUN is 4, Glucose is 150, CRP is 103.90. She went for placement of cholecystectomy tube by IR. We did a pelvic exam and ordered a vaginal estrogen cream and urinalysis. Also for her hyperkalemia we checked the potassium again and its 4.1. So we will repeat the labs tomorrow. We ordered a dose of albumin for her. 08/03/2025: Patient is seen and evaluated in the room 432. She has mild abdominal pain today. Her pain improved after the placement for cholecystotomy tube. Her vitals are in the normal range. Her labs are normal except for hemoglobin 8.2, glucose 156, CRP 89.8. Her aerobic and anaerobic culture of drain showed no growth. Gastroenterology saw the patient and they recommended 25 grams of 25% IV albumin q12H for 3 days. Her bleeding through the vagina decreased. The drainage through the left abdomen is 100ml, right abdomen is 20ml, left anterior abdomen 5ml. 08/04/2025: Patient is seen and evaluated in the room 432. She has abdominal pain today. Her vitals are in the normal range. Her labs are normal except for Hb is 8, CRP is 72.10, glucose is 130. Aerobic and anaerobic drain culture showed no growth. She is not able to tolerate her food. The drainage through the left abdomen is 100ml, right abdomen is 20ml, left anterior abdomen 5ml. Gastroenterology is planning to do EGD tomorrow. Surgery wanted to do a CT abdomen and pelvis with IV contrast. CT scan showed perisplenic and infrasplenic fluid collection measuring 6.0 x 6.1 x 8.9 cm, splenomegaly, with spleen measuring 15.2 cm, cholecystostomy tube in situ with decompressed gallbladder, abdominal drain in situ with tip in the pelvis. We ordered T.bilirubin and we will monitor the output from colostomy tube. We are also planning to add metoclopramide. 08/05/2025: Patient is seen and evaluated in the room 432. She has abdominal pain today. Her abdomen is tender to touch and warm. Her vital signs are in the normal range except for BP is 117/45. Her labs are normal except for Hb is 8.2, sodium is 135, creatinine is 0.3, CRP is 60.9 The drain output from left abdomen is 40ml, left anterior abdomen 0ml, right abdomen 0ml. Her saturation is 100% on 10L of O2. Her labs are in the normal range except for Hb is 8.2, HCT is 25.9, sodium is 135, glucose is 107, CRP is 60.90. She underwent endoscopy today and they did biopsy from 3 sites. GI said that they will consult radiology to check whether CHRIS drain and cholecystostomy tube are in place. General surgery will consult IR to evaluate perisplenic fluid collection for potential aspiration. 08/06/2025: Patient is seen and evaluated in the room 432. She has abdominal pain today. Her abdomen is tender to touch and warm. Her vital signs are in the normal range except for 97/63. Her labs are in the normal range except for Hb is 8.1, sodium is 135, blood glucose is 151, CRP 53.60. We are waiting for IR consult for evaluation and for potential aspiration of perisplenic fluid. The drain output from right abdomen is 20ml. 08/07/2025: Patient is seen and evaluated in the room 432. She has abdominal pain today. Her abdomen is tender to touch and warm. Her vital signs are in the normal range except for blood pressure which is 102/60. Her labs are in the normal range except for Hb is 8.5, WBC is 4.4, RDW is 17.3, sodium is 134, glucose is 147. We are waiting for IR consult for evaluation and for potential aspiration of perisplenic fluid. The drain output from right abdomen is 20ml. The GENERAL TECHNICIAN told me that she eats her food after taking her pain medications. Nurse is planning to start full liquid diet for lunch. 08/08/2025: She was evaluated at the bedside this morning. She is AAO x3. she complained of epigastric pain which gets worse with food . Moderate tenderness was appreciated on the epigastric region. Her blood pressure is 99/46, pulse 80. Remarkable lab is for WBC of 4.8, hemoglobin 9, CRP 43.90. She is scheduled with IR for perisplenic fluid aspiration and checking the position of cholecystostomy tube. She is on full liquid diet. She is on Zosyn, fluconazole. Surgery, GI, ID on the board. Rest of the plan as discussed below. 08/09/2025: Patient went to cath lab radiology technician for PROCEDURE. As per nurse, her cholecystostomy tube was already correctly positioned but had some stones so tube was flushed. She complained of epigastric and pelvic pain. For pain control, fentanyl patch has been ordered. She is pending perisplenic fluid aspiration by IR. Her blood pressure is 98/58, pulse 90. She is currently NPO. She is on Zosyn, fluconazole. Surgery, GI, ID on the board. Rest of the plan as discussed below. 08/10/2025: Patient was seen and examined at bedside. She underwent CT GUIDED PERISPLENIC PIGTAIL DRAINAGE CATHETER PLACEMENT with Aspiration of perisplenic fluid. There has been 25 ml sanguinous drainage so far in the catheter. Her cholecystostomy tube has had 30 mL drainage in the past 24 hours. She is currently on clear liquid diet tolerating it well. She continues to complain pain in her abdomen without any peritoneal signs. She was started on fentanyl patch yesterday. Gram stain and body fluid culture were sent after drainage of perisplenic abscess which showed RARE GRAM POSITIVE COCCI after 1 day. Patient is currently on Zosyn. 08/11/2025: Patient was seen and examined. She continues to complain of abdominal pain. Her multimodal pain medications were adjusted with fentanyl increased to 25mcg and Dilaudid frequency changed from q.4h to q.6h. She is currently on clear liquid diet and complains of pain while eating. She continues on Zosyn and fluconazole. We are waiting for culture results after drainage of perisplenic abscess. Incision site is clean, dry and intact. Will continue to follow recommendations from ID, General surgery and Nephrology. 08/12/2025: Patient was seen and examined at bedside. She complained of pain in right upper abdomen as well as left lower quadrant, along the drainage catheter insertion. No peritoneal signs present. She is currently on multimodal pain management. Today, we are advancing her to full liquid diet. Culture results have been negative so far. Incision site is clean, dry and intact. Will continue to follow recommendations from ID, General surgery and Nephrology. 08/13/2025: Patient was seen and examined at bedside. She complained of pain in right upper quadrant and left quadrant of abdomen along the line of drainage catheter placement. Comparatively, her pain is better than yesterday and patient states that she feels pain in between pain medication. No peritoneal signs are present. We will follow up with General surgery for CHRIS drain removal as there has been 0 to minimal drainage in the past few days. Patient is currently on full liquid diet. 08/14/2025 Patient is seen and examined at the bedside. She complains of intermittent pain in the left upper quadrant near the drainage catheter site which is well controlled with pain medications. No acute events last night. Vitals blood pressure in 90s/50s. Urine output 1.4 L, stool 1.2 L [ileostomy bag], 23 mL from left abdominal drain, 20 mL from right abdominal drain, 15 mL from RUQ drain over the last 24 hours. She denies fever, chills, chest pain/shortness of breath, tingling/numbness/pain in bilateral lower extremities. She is able to tolerate GI soft/bland diet without any nausea/vomiting. Labs WBC 4.1, hemoglobin stable at 8.9. We will continue parenteral nutrition. 08/15/2025: Patient was seen and examined this morning at bedside. The patient reports continued abdominal pain, worse on her left upper quadrant. The patient states that when she takes her pain medication, the pain resolves. However, without the pain medication, the patient reports that the pain remains prominent. Duloxetine will be started for its dual benefit in managing the abdominal pain and addressing potential underlying mood symptoms that may be amplifying the patients pain perception. I educated the patient on importance of eating her GI soft diet. We will continue to follow ID and surgery recommendations. 08/16/2025: Patient was seen and examined this morning at bedside in room 432. Patient admits to have continued nausea since yesterday and is unable to tolerate any food. Her CHRIS drain was removed yesterday and still continues to have left upper quadrant and right upper quadrant drains. Patient is discontinued from Dilaudid and is currently managed with p.r.n. [place] q.4. Dr. Gann recommended to reduce the dose of TPN to 40 mL to assess if patient's appetite improves. They also changed metoclopramide to scheduled q.12. We will follow the surgery and ID recommendations. 08/17/2025: Patient was examined at bedside in room 432. Patient reports improved nausea and is able to tolerate fruits however still does not have appetite for regular meals. Patient reports mild abdominal tenderness however denies fever, nausea, vomiting. Patient has no abdominal rigidity. Patient has abdominal drains have minimal drainage and shows no signs of infection. We encouraged the patient to eat GI soft diet as tolerated. We will continue to follow recommendations from ID and surgery. 08/18/2025: Patient was examined at bedside in room 432. Patient reports improved nausea and is able to tolerate her diet however only completes 25-50% of her meals. Her TPN rate was reduced to 20 mL/hour. Patient has mild abdominal tenderness at the right cholecystostomy drain site and left upper quadrant drain, without signs of infection. Patient has ileostomy bag was replaced yesterday for leakage and shows cleared fluid. We encouraged the patient to complete her meals. Surgical team is planning to discharge the patient by the end of the week and we will follow their recommendations closely. REVIEW OF SYSTEMS CONSTITUTIONAL: No fever, chills, or night sweats. NEUROLOGICAL: Denies headache, sensory and motor deficit. CARDIOVASCULAR: Denies any exertional angina, dyspnea on exertion, palpitations. PULMONARY: Denies any shortness of breath, cough, phlegm/sputum, hemoptysis, pleuritic chest pain. GASTROINTESTINAL: Admits to nausea. Denies vomiting. No peritoneal signs observed. Mild abdominal discomfort at the drain sites. GENITOURINARY: Denies frequency, urgency, nocturia, hematuria or incontinence. PHYSICAL EXAM GENERAL APPEARANCE: The patient is alert, awake and oriented and bedbound. NEUROLOGICAL: No sensory and motor deficits. CHEST: Normal chest expansion. LUNGS: Normal Vesicular breath sound. Absence of any rales, rhonchi or any wheezing. CARDIOVASCULAR: Regular. S1 and S2 normal. No appreciable rubs, murmurs or gallops. ABDOMEN: Abdomen is soft and slightly tender. Ileostomy creation. Cholecystostomy and left upper abdominal quadrant catheter in place. Absence of guarding, rigidity and rebound tenderness GENITOURINARY: No suprapubic tenderness. No costovertebral angle tenderness. Vital Signs (last 8hr) Date Time Temp Pulse Resp B/P (MAP) Pulse Ox O2 Delivery O2 Flow Rate FiO2 08/18/25 08:00 98.2 80 16 112/71 97 Room Air LABS: Laboratory: Test 08/18/25 11:42 08/18/25 03:20 08/17/25 16:45 Range/Units Whole Blood Glucose 119 H 70-110 MG/DL White Blood Count 4.8 4.8-10.8 K/uL Red Blood Count 3.20 L 4.00-5.50 MIL/uL Hemoglobin 9.6 L 12.0-16.0 g/dL Hematocrit 29.8 L 36-48 % Mean Corpuscular Volume 93.1 79-99 fL Mean Corpuscular Hemoglobin 30.0 27.0-33.0 pg Mean Corpuscular Hemoglobin Concent 32.2 32.0-36.0 g/dL Red Cell Distribution Width 17.5 H 11.0-15.5 % Platelet Count 220 130-400 K/uL Mean Platelet Volume 9.8 7.5-10.5 fL Immature Granulocyte % (Auto) 2.5 H 0-1 % Neutrophils (%) (Auto) 65.5 40.0-77.0 % Lymphocytes (%) (Auto) 16.6 L 21.0-51.0 % Monocytes (%) (Auto) 10.6 3.0-13.0 % Eosinophils (%) (Auto) 4.0 0.0-8.0 % Basophils (%) (Auto) 0.8 0.0-5.0 % Neutrophils # (Auto) 3.2 1.8-7.7 K/uL Lymphocytes # (Auto) 0.8 L 1.0-4.8 K/uL Monocytes # (Auto) 0.5 0.1-1.0 K/uL Eosinophils # (Auto) 0.19 0.00-0.70 K/uL Basophils # (Auto) 0.04 0.00-0.20 K/uL Absolute Immature Granulocyte (auto 0.12 0-1 K/uL Nucleated Red Blood Cells 0.0 0.0-0.19 % Sodium Level 130 L 136-145 mmol/L Potassium Level 4.4 3.5-5.1 mmol/L Chloride Level 99 L 101-111 mmol/L Carbon Dioxide Level 25 21-32 mmol/L Blood Urea Nitrogen 9 7-18 mg/dL Creatinine 0.7 0.5-1.0 mg/dL Glomerular Filtration Rate Calc 101 >90 mL/min Random Glucose 97 70-105 mg/dL Uric Acid 1.9 L 2.6-7.2 mg/dL Total Calcium 8.9 8.5-10.1 mg/dL Phosphorus Level 2.9 2.5-4.9 mg/dL Magnesium Level 1.80 1.80-2.40 mg/dL Total Bilirubin 0.5 0.2-1.0 mg/dL Aspartate Amino Transf (AST/SGOT) 51 H 10-37 U/L Alanine Aminotransferase (ALT/SGPT) 22 12-78 U/L Alkaline Phosphatase 178 H 50-136 U/L Total Protein 7.6 6.0-8.3 g/dL Albumin 2.6 L 3.5-5.0 g/dL Thyroid Stimulating Hormone (TSH) 0.34 #L 0.36-3.74 uIU/mL Urine Random Creatinine 58.05 30-135 mg/dL Urine Random Sodium < 13 L 40-220 mmol/l Urine Random Potassium 29 25-125 mmol/L Urine Random Chloride 27 L 110-250 mmol/L Current Medications Medications (Trade) Dose Ordered Sig/Gregory Route PRN Reason Start Time Stop Time Status Last Admin Dose Admin Acetaminophen (TYLenol 500MG TAB) 500 mg Q6H6 PRN PO MILD PAIN (1-3) 07/27/25 16:30 08/07/25 12:15 DC Acetaminophen (TYLenol 500MG TAB) 500 mg Q6H6 PRN PO MILD PAIN (1-3) 08/07/25 10:00 08/07/25 10:03 DC Acetaminophen (TYLenol 650MG SUPPOSITORY) 650 mg Q6H PRN RC MILD PAIN (1-3) 07/21/25 00:00 07/27/25 16:22 DC Acetaminophen/ Hydrocodone Bitart (NORco 5/325MG) 1 tab Q4H PRN PO MODERATE PAIN (4-6) 07/31/25 16:30 08/05/25 16:29 DC 08/05/25 14:57 1 TAB Acetaminophen/ Hydrocodone Bitart (NORco 5/325MG) 1 tab Q4H PRN PO MODERATE PAIN (4-6) 08/07/25 12:30 08/12/25 12:29 DC 08/12/25 00:46 1 TAB Acetaminophen/ Hydrocodone Bitart (NORco 5/325MG) 1 tab Q4H PRN PO MODERATE PAIN (4-6) 08/12/25 16:30 08/17/25 16:29 DC 08/17/25 10:17 1 TAB Acetaminophen/ Hydrocodone Bitart (NORco 5/325MG) 1 tab Q6H PRN PO MODERATE PAIN (4-6) 08/17/25 21:30 08/22/25 21:29 08/18/25 09:57 1 TAB Albumin Human 50 ml @ 100 mls/hr Q12H IV 08/02/25 21:30 08/05/25 09:59 DC 08/05/25 10:12 100 MLS/HR Albumin Human 50 ml @ 0 mls/hr Q12H IV 08/02/25 18:30 08/02/25 20:04 DC Albumin Human 100 ml @ 0 mls/hr ONCE IV 07/25/25 12:00 07/26/25 11:59 DC 07/25/25 13:43 100 MLS/HR Clotrimazole (Lotrimin) 1 GM BID TP 07/29/25 21:00 08/28/25 20:59 08/18/25 09:29 1 GM Cyclobenzaprine HCl (Cyclobenzaprine HCl) 5 mg TID PO 07/25/25 14:00 07/26/25 14:00 DC 07/26/25 14:19 5 MG Duloxetine HCl (CymbALTA 30 mg CAP) 30 mg BID PO 08/15/25 21:00 09/14/25 20:59 08/18/25 09:25 30 MG Fat Emulsion Intravenous 250 ml @ 42 mls/hr DAILY10 IV 08/13/25 10:00 09/12/25 09:59 08/18/25 09:57 42 MLS/HR Fentanyl (DURAgesic 12 MCG/HR PATCH) 12 mcg Q72H TD 08/09/25 13:00 08/09/25 15:19 DC Fentanyl (DURAgesic 12 MCG/HR PATCH) 12 mcg Q72H TD 08/09/25 15:30 08/11/25 10:32 DC 08/09/25 15:38 12 MCG Fentanyl (DURAgesic 25 MCG/HR PATCH) 25 mcg Q72H TD 07/31/25 14:30 07/31/25 14:44 DC Fentanyl (DURAgesic 25 MCG/HR PATCH) 25 mcg Q72H TD 08/12/25 15:30 08/12/25 16:00 DC Fentanyl (DURAgesic 25 MCG/HR PATCH) 25 mcg Q72H TD 08/12/25 21:00 08/17/25 20:59 DC 08/16/25 00:02 25 MCG Fluconazole/ Sodium Chloride (DiFLUCan 200 MG/ NS 100 ML) 200 mg Q24H IVPB 07/21/25 21:00 08/20/25 20:59 08/17/25 20:58 200 MG Furosemide (LASix 20MG TAB) 20 mg DAILY PO 07/25/25 11:00 08/02/25 11:53 DC 08/02/25 09:42 20 MG Gabapentin (NEURontin 100 mg CAP) 100 mg TID PO 07/29/25 14:00 08/02/25 09:21 DC 08/01/25 20:14 100 MG Gabapentin (NEURontin 100 mg CAP) 100 mg TID PO 08/11/25 21:00 09/10/25 20:59 08/18/25 09:28 100 MG Home Med (Compound Po Narcotic) HS TD 08/12/25 21:00 09/11/25 20:59 Hydromorphone HCl (DiLAUDid 0.5MG INJ) 0.5 mg Q4H PRN IVP SEVERE PAIN (7-10) 07/24/25 10:00 07/29/25 09:59 DC 07/29/25 08:22 0.5 MG Hydromorphone HCl (DiLAUDid 0.5MG INJ) 0.5 mg Q4H PRN IVP SEVERE PAIN (7-10) 07/29/25 13:30 08/03/25 13:29 DC 08/03/25 13:09 0.5 MG Hydromorphone HCl (DiLAUDid 0.5MG INJ) 0.5 mg Q4H PRN IVP SEVERE PAIN (7-10) 08/03/25 18:00 08/07/25 10:03 DC 08/07/25 05:09 0.5 MG Hydromorphone HCl (DiLAUDid 0.5MG INJ) 0.5 mg Q4H PRN IVP SEVERE PAIN (7-10) 08/07/25 10:00 08/11/25 10:32 DC 08/10/25 20:27 0.5 MG Hydromorphone HCl (DiLAUDid 0.5MG INJ) 0.5 mg Q6H PRN IVP SEVERE PAIN (7-10) 08/11/25 11:00 08/16/25 10:59 DC 08/15/25 16:03 0.5 MG Insulin Human Regular (humuLIN R 100 UNIT/ML 3ML) INSULIN SLIDING SCAL... ACHS SQ 07/21/25 07:30 08/20/25 07:29 08/12/25 22:36 3 UNIT Ketorolac Tromethamine (toRADol) 15 mg Q8H PRN IM MODERATE PAIN (4-6) 08/15/25 18:30 08/16/25 06:57 DC 08/16/25 00:01 15 MG Lactated Ringer's 1,000 ml @ 75 mls/hr [id number] IV 07/21/25 00:00 07/21/25 13:17 DC 07/21/25 02:57 75 MLS/HR Lactated Ringer's 1,000 ml @ 75 mls/hr [id number] IV 07/21/25 13:30 07/24/25 11:09 DC 07/24/25 09:27 75 MLS/HR Lactobacillus Rhamnosus ([facility]) 1 each DAILY20 PO 07/26/25 20:00 08/25/25 19:59 08/17/25 20:58 1 EACH Lidocaine (Lidoderm Patch 5%) 1 patch DAILY TP 07/28/25 09:00 08/27/25 08:59 08/18/25 09:27 1 PATCH Lidocaine HCl/Al Hydroxide/Mg Hydroxide/ Dicyclomine HCl 20ML OR AD ONCE PO 08/06/25 16:30 08/07/25 16:29 DC 08/06/25 16:45 20 ML Magnesium Sulfate 50 ml @ 0 mls/hr PROTOCOL PRN IV MAGNESIUM PROTOCOL 07/21/25 07:00 08/20/25 06:59 08/01/25 06:05 25 MLS/HR Methocarbamol (methoCARBamol) 500 mg BID PO 08/11/25 16:00 09/10/25 15:59 08/18/25 09:25 500 MG Metoclopramide HCl (regLAN 10MG IV) 5 mg BID IVP 08/04/25 21:00 09/03/25 20:59 08/18/25 09:26 5 MG Metronidazole/ Sodium Chloride (flaGYL) 500 mg Q8H IV 07/21/25 14:00 07/21/25 13:40 DC Morphine Sulfate (morPHINE 2MG SYG) 2 mg Q4H PRN IVP SEVERE PAIN (7-10) 07/21/25 00:30 07/21/25 13:18 DC 07/21/25 04:46 2 MG Morphine Sulfate (morPHINE 4MG SYG) 4 mg Q3H PRN IV MODERATE PAIN (4-6) 07/21/25 13:30 07/26/25 16:29 DC 07/26/25 10:51 4 MG Norepinephrine 250 ml @ 0 mls/hr PROTOCOL IV 07/20/25 23:30 08/03/25 08:27 DC 07/21/25 10:56 18.45 MLS/HR Ondansetron HCl (zoFRAN 4MG INJ) 4 mg Q4H PRN IVP NAUSEA 07/21/25 13:30 08/16/25 17:50 DC 08/16/25 10:23 4 MG Ondansetron HCl (zoFRAN 4MG INJ) 4 mg Q6H IVP 08/16/25 18:00 09/15/25 17:59 08/18/25 12:33 4 MG Ondansetron HCl (zoFRAN 4MG INJ) 4 mg Q6H PRN IV NAUSEA/VOMITING 07/21/25 00:00 07/21/25 13:18 DC Pantoprazole Sodium (PROTonix 40MG INJ) 40 mg BID IV 07/26/25 21:00 08/20/25 08:59 08/18/25 09:25 40 MG Pantoprazole Sodium (PROTonix 40MG INJ) 40 mg BID IVP 08/05/25 21:00 08/06/25 08:39 DC 08/05/25 20:25 40 MG Pantoprazole Sodium (PROTonix 40MG INJ) 40 mg DAILY IV 07/21/25 09:00 07/26/25 09:31 DC 07/26/25 08:55 40 MG Pharmacy Profile Note (Pharmacy Communication) 1 each ONCE MISC 07/21/25 15:30 07/21/25 15:16 DC Pharmacy Profile Note (Pharmacy Communication) 1 each ONCE MISC 08/16/25 16:00 08/15/25 21:12 DC Pharmacy Profile Note (Pharmacy Communication) 1 each ONCE MISC 08/06/25 16:00 08/07/25 07:07 DC Piperacillin Sod/ Tazobactam Sod 50 ml @ 200 mls/hr ONCE STAT IVPB 07/20/25 19:15 07/20/25 19:29 DC 07/20/25 20:32 200 MLS/HR Piperacillin Sod/ Tazobactam Sod (Zosyn 3.375gm+NS 50ml) 3.375 gm Q12H IV 07/21/25 00:00 07/31/25 00:00 DC 07/30/25 23:55 3.375 GM Piperacillin Sod/ Tazobactam Sod (Zosyn 3.375gm+NS 50ml) 3.375 gm Q8H IVPB 07/31/25 11:30 08/10/25 11:29 DC 08/10/25 04:05 3.375 GM Piperacillin Sod/ Tazobactam Sod (Zosyn 3.375gm+NS 50ml) 3.375 gm Q8H IVPB 08/10/25 13:00 08/20/25 12:59 08/18/25 05:37 3.375 GM Potassium Chloride 100 ml @ 100 mls/hr AD PRN IV POTASSIUM PROTOCOL 07/24/25 08:30 08/23/25 08:29 07/30/25 06:23 100 MLS/HR Potassium Chloride (K-Dur/Klor-Con 20meq) 20 meq AD PRN PO POTASSIUM PROTOCOL 07/24/25 08:30 08/23/25 08:29 07/27/25 20:33 20 MEQ Potassium Chloride (KCl 10% Elixir 20meq/15ml) 20 meq AD PRN PO POTASSIUM PROTOCOL 07/24/25 08:30 08/23/25 08:29 07/31/25 08:15 20 MEQ Psyllium Hydrophilic Mucilloid (Metamucil) 1 tbs BID PO 07/26/25 21:00 08/25/25 20:59 08/18/25 09:25 1 TBS Simethicone (Mylicon) 80 mg Q6H6 PO 07/27/25 12:00 08/26/25 11:59 08/18/25 12:33 80 MG Sodium Bicarbonate 150 meq/Sodium Chloride 1,150 ml @ 0 mls/hr Q0M IVP 07/21/25 14:00 07/26/25 09:31 DC Sodium Chloride (NS 50ml) 50 ml AD IV 07/31/25 11:30 07/31/25 11:12 DC Sodium Chloride (Normal Saline Flush) 10 ml Q8H IJ 08/09/25 11:00 09/08/25 10:59 08/18/25 11:50 10 ML Spironolactone (Aldactone 25mg) 25 mg BID PO 07/25/25 21:00 07/26/25 09:01 DC 07/26/25 08:56 25 MG Sucralfate (Carafate) 1 gm ACHS PO 07/29/25 21:00 08/28/25 20:59 08/18/25 12:33 1 GM Thiamine HCl (Vitamin B-1) 100 mg DAILY IVP 07/22/25 21:00 08/21/25 20:59 08/18/25 09:26 100 MG Thiamine HCl 100 mg/Sodium Chloride 50 ml @ 100 mls/hr Q24H IM 07/21/25 15:30 07/21/25 16:25 DC Vancomycin HCl (Vancomycin 1g/ 250ml Kit) 1 gm ONCE STAT IV 07/20/25 21:23 07/20/25 21:26 DC 07/20/25 22:06 1 GM Vasopressin 20 units/Sodium Chloride 100 ml @ 0 mls/hr PROTOCOL IV 07/21/25 00:30 08/03/25 08:27 DC 07/21/25 00:10 9 MLS/HR DIAGNOSTICS / RADIOLOGY: [ ] ASSESSMENT: Suspected Bowel Perforation/ Anastomotic Leak POA Acute cholecystitis, not POA s/p Cholecystotomy tube placement 08/02/2025 Bilious peritonitis s/p Diagnostic laparoscopy, abdominal washout, drain placement and diverting loop ileostomy creation Perisplenic and infrasplenic fluid collection with splenomegaly - suspected abscess s/p drainage with catheter placement Hyponatremia, resolved Bacterial peritonitis [ESBL Ecoli], resolved Cholelithiasis Atrophic vaginitis Hyperkalemia, resolved Iron Deficiency anemia, POA Diabetes Mellitus Type 2 POA Acute Kidney Injury POA, resolved Septic Shock POA, resolved Cirrhosis of liver POA Esophageal Varices Recent Robotic takedown of splenic flexure mobilization, robotic takedown of colovesical fistula with sigmoid colectomy and end-to-end anastomosis surgery PLAN: Bilious peritonitis status post Diagnostic laparoscopy, abdominal washout, drain placement and diverting loop ileostomy creation -Continue close monitoring of the patient -continue physical therapy -No output in CHRIS drain. Follow up with surgery regarding CHRIS drain removal. -Continue Zosyn [day 29] and fluconazole [day 29]. -Probiotics and Fibers have been added for bloating. -Continue Protonix 40mg IV BID - Continue [place] 5 mg q.4h p.r.n.,for pain management - As per surgery, continue methocarbamol and gabapentin. Perisplenic and infrasplenic fluid collection with splenomegaly * CT scan showed perisplenic and infrasplenic fluid collection measuring 6.0 x 6.1 x 8.9 cm, splenomegaly, with spleen measuring 15.2 cm * IR drained the perisplenic and intra splenic fluid with placement of drainage catheter. * Cultures resulted in now growth * Continue Zosyn and fluconazole * Follow ID recommendations Bacterial Peritonitis, resolved * Post Surgical patient with Bacterial peritonitis positive for ESBL * Culture and sensitivity shows susceptibility to Zosyn, Gentamicin and Meropenem. * Likely secondary to post-operative intraabdominal infection with risk of ongoing contamination. * Currently patient is on Zosyn (Day 29) Cholelithiasis * Patient complained of upper abdominal pain * Ultrasound abdomen showed: Cirrhotic-appearing liver * Cholelithiasis and biliary sludge with gallbladder distension and Small volume ascites. * Hida scan shows acute cholecystitis. * IR did a Fluoroscopy and ultrasound-guided placement of cholecystotomy tube and cholecystogram on 08/02/2025. * IR evaluated patient in the cath lab radiology technician for cholecystostomy tube placement. Patient was found to have normally positioned tube with some stones for which the tube was flushed.. Small Bowel Obstruction (Resolved) * Abdominal Xray showed: Dilated small bowel loops are seen in mid abdomen * Pain management(avoid excess opioids if ileus is suspected) * Monitor for resolution vs progression of Ileus/obstruction. 07/29/25 Bowel Perforation, Dehiscence of the anastomosis - Patient had repair of colovesicular fistula with sigmoid colon resection and anastomosis on 07/09/25. - CT abdominal pelvis w/contrast done on 07/20/2025 showed Free air in the upper abdomen is seen, suggesting perforated bowel vs post surgical changes. No obstruction. - underwent Diagnostic laparoscopy, abdominal washout, drain placement and diverting loop ileostomy creation for biliary peritonitis Iron Deficiency anemia * Hemoglobin today is 9.6. * Anemia panel has been ordered. Results showed Iron 24L, %sat 16.3 and TIBC 147L. 07/30/25 * Received 2 doses of Iron sucrose (venofer) so far Recommend trending Hgb and transfuse as needed to goal Hgb >7 Acute Kidney Injury, Resolved * Creatinine improved * Initial FeNA is 0.1 %, probably secondary to dehydration and NSAIDs overuse. * initial Urine sodium is < 13 and urine creatinine is 132.17. * Avoid nephrotoxic agents, eg. NSAIDS. * Weight patient daily. * Monitor intake and output. Supportive measures - Multimodal pain management - Duloxetine started. -Maintain IV fluids, correct electrolytes -Serial abdominal exams -[employer] on avoidance of NSAIDS and other related triggers. -Monitor Vitals and perform morning labs regularly Continue GI prophylaxis with Pantop Continue DVT prophylaxis with SCDs, we will avoid heparin due to history of allergies to porcine ATTESTATION BY PHYSICIAN I have seen and examined the patient. I reviewed the documentation, medical decision making, and treatment plan as noted by the resident physician above. I agree with the findings and plan of care. AYAKA BARR MD, HARSHAVARDHA MD Aug 18, 2025 14:07
--- NOTE | 2025-08-18 14:18 | PN ---
NEPHROLOGY PROGRESS NOTE Date/Time Patient Seen: Aug 18, 2025 SUBJECTIVE: This is a 55-year-old female with a past medical history of diabetes mellitus type 2, liver cirrhosis, esophageal varices. He presented to the emergency room with chief complain of abdominal pain. CT of the abdomen showed moderate small bowel enteritis with free air in the upper abdomen, suggesting perforated bowel versus post surgical changes. No obs truction. S/p diagnostic laparoscopy, abdominal washout, drain placement and diverting loop ileostomy creation with CHRIS drain 10 Japanese on 07/21 S/P cholecystotomy tube on 08/02 S/P Cholecystogram showed cholecystotomy tube in satisfactory position with multiple large gallstones seen in the gallbladder lumen on 08/09 S/P successful CT guided drainage of left infrasplenic collection on 08/09 Diet is being advanced as tolerated, continues on TPN as per surgery She was noted to have elevated BUN/creatinine We are consulted for renal failure Renal function is stable Hyponatremia is improving Continues with poor oral intake She was seen in the [facility] [place] floor, in no acute distress No family at the bedside REVIEW OF SYSTEMS: GENERAL: Positive for nausea NEUROLOGIC: Negative for any blurry vision, blind spots, double vision, facial asymmetry, dysphagia, dysarthria, hemiparesis, hemisensory deficits, vertigo, ataxia. HEENT: Negative for any head trauma, neck trauma, neck stiffness, photophobia, phonophobia, sinusitis, rhinitis. CARDIAC: Negative for any chest pain, dyspnea on exertion, paroxysmal nocturnal dyspnea, peripheral edema. PULMONARY: Negative for any shortness of breath, wheezing, COPD, or TB exposure. GASTROINTESTINAL: Negative for any abdominal pain, nausea, vomiting, bright red blood per rectum, melena. GENITOURINARY: Negative for any dysuria, hematuria, incontinence. INTEGUMENTARY: Negative for any rashes, cuts, insect bites. RHEUMATOLOGIC: Negative for any joint pains, photosensitive rashes, history of vasculitis or kidney problems. HEMATOLOGIC: Negative for any abnormal bruising, frequent infections or bleeding. Vital Signs (last 8hr) Date Time Temp Pulse Resp B/P (MAP) Pulse Ox O2 Delivery O2 Flow Rate FiO2 08/18/25 08:00 98.2 80 16 112/71 97 Room Air PHYSICAL EXAM: GENERAL: Alert and oriented x 3. No acute distress. Well-nourished. EYES: EOMI. Anicteric. HENT: Moist mucous membranes. No scleral icterus. No cervical lymphadenopathy. LUNGS: Clear to auscultation bilaterally. No accessory muscle use. CARDIOVASCULAR: Regular rate and rhythm. No murmur. No JVD. ABDOMEN: Soft, non-tender and non-distended. No palpable masses. EXTREMITIES: No edema. Non-tender SKIN: No rashes or lesions. Warm. NEUROLOGIC: No focal neurological deficits. CN II-XII grossly intact, but not individually tested. PSYCHIATRIC: Cooperative. Appropriate mood and affect. Current Medications Medications (Trade) Dose Ordered Sig/Gregory Route Start Time Stop Time Status Last Admin Dose Admin Albumin Human 100 ml @ 0 mls/hr ONCE IV 07/25/25 12:00 07/26/25 11:59 DC 07/25/25 13:43 100 MLS/HR Cyclobenzaprine HCl (Cyclobenzaprine HCl) 5 mg TID PO 07/25/25 14:00 07/26/25 14:00 DC 07/26/25 14:19 5 MG Fluconazole/ Sodium Chloride (DiFLUCan 200 MG/ NS 100 ML) 200 mg Q24H IVPB 07/21/25 21:00 08/20/25 20:59 07/25/25 20:47 200 MG Furosemide (LASix 20MG TAB) 20 mg DAILY PO 07/25/25 11:00 08/24/25 10:59 07/26/25 08:56 20 MG Insulin Human Regular (humuLIN R 100 UNIT/ML 3ML) INSULIN SLIDING SCAL... ACHS SQ 07/21/25 07:30 08/20/25 07:29 07/22/25 20:40 3 UNIT Lactated Ringer's 1,000 ml @ 75 mls/hr [id number] IV 07/21/25 00:00 07/21/25 13:17 DC 07/21/25 02:57 75 MLS/HR Lactated Ringer's 1,000 ml @ 75 mls/hr [id number] IV 07/21/25 13:30 07/24/25 11:09 DC 07/24/25 09:27 75 MLS/HR Lactobacillus Rhamnosus ([facility] [employer]) 1 each DAILY20 PO 07/26/25 20:00 08/25/25 19:59 Metronidazole/ Sodium Chloride (flaGYL) 500 mg Q8H IV 07/21/25 14:00 07/21/25 13:40 DC Norepinephrine 250 ml @ 0 mls/hr PROTOCOL IV 07/20/25 23:30 08/19/25 23:29 07/21/25 10:56 18.45 MLS/HR Pantoprazole Sodium (PROTonix 40MG INJ) 40 mg BID IV 07/26/25 21:00 08/20/25 08:59 Pantoprazole Sodium (PROTonix 40MG INJ) 40 mg DAILY IV 07/21/25 09:00 07/26/25 09:31 DC 07/26/25 08:55 40 MG Pharmacy Profile Note (Pharmacy Communication) 1 each ONCE MISC 07/21/25 15:30 07/21/25 15:16 DC Piperacillin Sod/ Tazobactam Sod 50 ml @ 200 mls/hr ONCE STAT IVPB 07/20/25 19:15 07/20/25 19:29 DC 07/20/25 20:32 200 MLS/HR Piperacillin Sod/ Tazobactam Sod (Zosyn 3.375gm+NS 50ml) 3.375 gm Q12H IV 07/21/25 00:00 07/31/25 00:00 07/26/25 12:10 3.375 GM Psyllium Hydrophilic Mucilloid (Metamucil) 1 tbs BID PO 07/26/25 21:00 08/25/25 20:59 Sodium Bicarbonate 150 meq/Sodium Chloride 1,150 ml @ 0 mls/hr Q0M IVP 07/21/25 14:00 07/26/25 09:31 DC Spironolactone (Aldactone 25mg) 25 mg BID PO 07/25/25 21:00 07/26/25 09:01 DC 07/26/25 08:56 25 MG Thiamine HCl (Vitamin B-1) 100 mg DAILY IVP 07/22/25 21:00 08/21/25 20:59 07/26/25 08:55 100 MG Thiamine HCl 100 mg/Sodium Chloride 50 ml @ 100 mls/hr Q24H IM 07/21/25 15:30 07/21/25 16:25 DC Vancomycin HCl (Vancomycin 1g/ 250ml Kit) 1 gm ONCE STAT IV 07/20/25 21:23 07/20/25 21:26 DC 07/20/25 22:06 1 GM Vasopressin 20 units/Sodium Chloride 100 ml @ 0 mls/hr PROTOCOL IV 07/21/25 00:30 08/20/25 00:29 07/21/25 00:10 9 MLS/HR LABORATORY: [ ] Hematology Labs: Test 08/18/25 03:20 Range/Units White Blood Count 4.8 4.8-10.8 K/uL Red Blood Count 3.20 L 4.00-5.50 MIL/uL Hemoglobin 9.6 L 12.0-16.0 g/dL Hematocrit 29.8 L 36-48 % Mean Corpuscular Volume 93.1 79-99 fL Mean Corpuscular Hemoglobin 30.0 27.0-33.0 pg Mean Corpuscular Hemoglobin Concent 32.2 32.0-36.0 g/dL Red Cell Distribution Width 17.5 H 11.0-15.5 % Platelet Count 220 130-400 K/uL Mean Platelet Volume 9.8 7.5-10.5 fL Immature Granulocyte % (Auto) 2.5 H 0-1 % Neutrophils (%) (Auto) 65.5 40.0-77.0 % Lymphocytes (%) (Auto) 16.6 L 21.0-51.0 % Monocytes (%) (Auto) 10.6 3.0-13.0 % Eosinophils (%) (Auto) 4.0 0.0-8.0 % Basophils (%) (Auto) 0.8 0.0-5.0 % Neutrophils # (Auto) 3.2 1.8-7.7 K/uL Lymphocytes # (Auto) 0.8 L 1.0-4.8 K/uL Monocytes # (Auto) 0.5 0.1-1.0 K/uL Eosinophils # (Auto) 0.19 0.00-0.70 K/uL Basophils # (Auto) 0.04 0.00-0.20 K/uL Absolute Immature Granulocyte (auto 0.12 0-1 K/uL Nucleated Red Blood Cells 0.0 0.0-0.19 % Chemistry Labs: Test 08/18/25 11:42 08/18/25 03:20 Range/Units Whole Blood Glucose 119 H 70-110 MG/DL Sodium Level 130 L 136-145 mmol/L Potassium Level 4.4 3.5-5.1 mmol/L Chloride Level 99 L 101-111 mmol/L Carbon Dioxide Level 25 21-32 mmol/L Blood Urea Nitrogen 9 7-18 mg/dL Creatinine 0.7 0.5-1.0 mg/dL Glomerular Filtration Rate Calc 101 >90 mL/min Random Glucose 97 70-105 mg/dL Uric Acid 1.9 L 2.6-7.2 mg/dL Total Calcium 8.9 8.5-10.1 mg/dL Phosphorus Level 2.9 2.5-4.9 mg/dL Magnesium Level 1.80 1.80-2.40 mg/dL Total Bilirubin 0.5 0.2-1.0 mg/dL Aspartate Amino Transf (AST/SGOT) 51 H 10-37 U/L Alanine Aminotransferase (ALT/SGPT) 22 12-78 U/L Alkaline Phosphatase 178 H 50-136 U/L Total Protein 7.6 6.0-8.3 g/dL Albumin 2.6 L 3.5-5.0 g/dL Thyroid Stimulating Hormone (TSH) 0.34 #L 0.36-3.74 uIU/mL DIAGNOSTICS / RADIOLOGY: [address] [address] IMAGING REPORT Signed PATIENT: DALLAS BUCHANAN MR#: [id number] : 1970 SEX: F AGE: 55 LOCATION: [facility] ORDER 1 STATUS: ADM IN REPORT#: [id number] SERVICE REASON: picc line placement ORDERING PHYSICIAN: AYAKA BARR MD PROCEDURE: CXR1VW - CHEST 1VW EXAM: CR Chest, single view. CLINICAL HISTORY: PICC line placement. COMPARISON: Prior chest radiograph dated July 22, 2025 FINDINGS: Left-sided PICC line placement with tip in the region of the superior vena cava. Mild cardiomegaly. An ill-defined soft tissue in the superior mediastinum possibility of aortic arch aneurysm, is not excluded. The lungs show no infiltrate or other acute findings. No pleural effusion or pneumothorax. No acute osseous abnormality. IMPRESSION: Left-sided PICC line placement with tip in the region of the superior vena cava. Mild cardiomegaly. An ill-defined soft tissue in the superior mediastinum possibility of aortic arch aneurysm, is not excluded. May consider further evaluation with contrast-enhanced CT thorax. Compared to the prior study, there is no interval resolution of the subsegmental atelectasis in the right lower lobe, interval removal of the nasogastric tube, and interval placement of the left-sided PICC catheter. /[place] DICTATED BY: ELDON MILLER Jr., MD DATE: 08/11/25824 ELECTRONICALLY SIGNED BY: ELDON MILLER Jr., MD DATE: 08/11/25824 PATIENT: DALLAS BUCHANAN MR#: [id number] : 1970 SEX: F AGE: 55 LOCATION: [facility] ORDER 154 STATUS: ADM IN REPORT#: [id number] SERVICE 08 REASON: Aspiration of perisplenic fluid noted on CT ORDERING PHYSICIAN: BENEDICTO OBRIEN Jr. PROCEDURE: GUID NDL - CT GUIDE NDL PLCMT IR CT GUIDE NDL PLCMT IR HISTORY: Aspiration of perisplenic fluid noted on CT infrasplenic fluid collection drainage . TECHNIQUE: Images from prior studies reviewed. Informed consent was obtained after explaining the procedure and potential complications to the patient. Time out performed. The patient was placed prone on the CT couch and images of the abdomen obtained. The left flank draped in sterile fashion. Local anesthesia was applied and under CT-fluoroscopy guidance, a 19-gauge needle introducer was advanced through the abdominal wall and into a left infrasplenic fluid collection in the left hemiabdomen. Then, over a wire the tract was dilated to accommodate a 8 Japanese APDL catheter, which was left coiled within the collection. Completion images reveal no hemorrhage. Patient tolerated the procedure well and was discharged from the department in good condition. Approximately 10 cc of fluid mL of fluid sent for cultures. Conscious sedation provided by a registered nurse who monitored the patient's vital signs throughout and after the procedure. MEDICATIONS: Fentanyl 100 mcg IV and Versed 2 mg IV IMPRESSION: Successful CT guided drainage of left infrasplenic collection. DICTATED BY: GREER FIORE MD DATE: 08/10/25927 ELECTRONICALLY SIGNED BY: GREER FIORE MD DATE: 08/10/25937 PATIENT: DALLAS BUCHANAN MR#: [id number] : 1970 SEX: F AGE: 55 LOCATION: [facility] ORDER 36 STATUS: ADM IN REPORT#: [id number] SERVICE 133 REASON: epigastric pain. not tolerating meals. ORDERING PHYSICIAN: SUSAN JHAVERI MD PROCEDURE: ABD PEL W - CT ABDOMEN/PELVIS W/CONTRAST EXAM: CT Abdomen and Pelvis with IV contrast CLINICAL HISTORY: epigastric pain. not tolerating meals. TECHNIQUE: Axial computed tomography images of the abdomen and pelvis with intravenous contrast. CONTRAST: with intravenous contrast. COMPARISON: Compared with the previous CT dated 07/20 and USG dated 07/29 FINDINGS: LUNG BASES: Grossly stable atelectasis and scarring at the lung bases. LIVER: Unremarkable. GALLBLADDER AND BILE DUCTS: The gallbladder is decompressed with a cholecystostomy tube in situ. PANCREAS: Unremarkable. SPLEEN: The spleen is enlarged in size, measuring 15.2 cm. ADRENAL GLANDS: Unremarkable. KIDNEYS, URETERS, AND BLADDER: No hydronephrosis or nephrolithiasis. No ureteral calculi. The urinary bladder is unremarkable. STOMACH AND BOWEL: The ileostomy site appears unremarkable. Interval resolution of previously seen moderate small bowel enteritis. No obstruction. APPENDIX: No CT evidence for appendicitis. PERITONEUM: Near complete interval resolution of previously seen moderate ascites in the abdomen and pelvis. Collection in the perisplenic and infra-splenic region measuring 6.0 x 6.1 x 8.9 cm. Interval resolution of previously seen pneumoperitoneum. Diffuse mesenteric fat stranding, likely postoperative changes. LYMPH NODES: No lymphadenopathy. REPRODUCTIVE: Unremarkable as visualized. VASCULATURE: No aortic aneurysm. ABDOMINAL WALL AND SOFT TISSUES: Interval resolution of previously seen subcutaneous emphysema in the anterior abdominal wall and left lateral chest wall. Abdominal drain in situ with tip in the pelvis. BONES: No fracture or suspicious osseous abnormality. IMPRESSION: 1. Perisplenic and infrasplenic fluid collection measuring 6.0 x 6.1 x 8.9 cm. 2. Splenomegaly, with spleen measuring 15.2 cm. 3. Cholecystostomy tube in situ with decompressed gallbladder. 4. Abdominal drain in situ with tip in the pelvis. 5. No acute findings in the remainder of the abdomen and pelvis. /[place] DICTATED BY: ELDON MILLER Jr., MD DATE: 08/04/251636 ELECTRONICALLY SIGNED BY: ELDON MILLER Jr., MD DATE: 08/04/25 163 PATIENT: DALLAS BUCHANAN MR#: [id number] : 1970 SEX: F AGE: 55 LOCATION: [facility] ORDER 1524 STATUS: ADM IN REPORT#: [id number] SERVICE 152 REASON: cholecystitis ORDERING PHYSICIAN: BENEDICTO OBRIEN Jr. PROCEDURE: HIDA PHARM - NM HIDA/HEPATOBILI W/ PHARMACO EXAM: HIDA scan. INDICATION: Severe RUQ Pain to rule out cholecystitis. REFERENCE EXAMINATION: USG July 29, 2025. TECHNIQUE: Sequential images of the abdomen were obtained in the anterior projection after IV administration of 6.0 mCi of Tc99m Mebrofenin. FINDINGS: Tracer activity throughout the liver is homogeneous without focal defects. There is prompt excretion of the pharmaceutical into the bile ducts and into the small bowel, without evidence of obstruction. There is no visualization of the gallbladder at the conclusion of the examination. IMPRESSION: Scintigraphic findings are compatible with acute cholecystitis. /[place] DICTATED BY: ELDON MLILER Jr., MD DATE: 08/01/25 101 ELECTRONICALLY SIGNED BY: ELDON MILLER Jr., MD DATE: 08/01/25 101 PATIENT: DALLAS BUCHANAN MR#: [id number] : 1970 SEX: F AGE: 55 LOCATION: [facility] ORDER DT: 09/1910 STATUS: ADM IN REPORT#: [id number] SERVICE 09 REASON: ABD PAIN ORDERING PHYSICIAN: NIKKI MUNOZ NP PROCEDURE: ABD 1VW - ABD 1VW EXAM: CR Abdomen, 1 view. CLINICAL HISTORY: Pain. COMPARISON: None provided. FINDINGS: Dilated small bowel loops are seen in mid abdomen. There is a density in the pelvis which may represent a send drainage catheter. No free air is evident. No abnormal calcification. No aggressive appearing osseous lesion. IMPRESSION: Dilated small bowel loops are seen in mid abdomen. Density in the pelvis which may represent a send drainage catheter. /[place] DICTATED BY: TOBI LEAHY MD DATE: 07/29/251032 ELECTRONICALLY SIGNED BY: TOBI LEAHY MD DATE: 07/29/251032 PATIENT: DALLAS BUCHANAN MR#: [id number] : 1970 SEX: F AGE: 55 LOCATION: [facility] ORDER 18 STATUS: ADM IN REPORT#: [id number] SERVICE 15 REASON: Liver cirrhosis ORDERING PHYSICIAN: LISET DOUGLAS MD PROCEDURE: ABDOMEN - US ABDOMINAL COMPLETE EXAM: US Abdomen complete CLINICAL HISTORY: Liver cirrhosis TECHNIQUE: Real-time ultrasound of the abdomen (complete) with image documentation. COMPARISON: None provided. FINDINGS: LIVER: Liver measures 12.3 cm with a heterogeneous coarse echotexture. GALLBLADDER: Gallbladder contains stones and sludge. Gallbladder is distended. COMMON BILE DUCT: No dilation. PANCREAS: Pancreas not well-visualized due to overlying bowel gas KIDNEYS: Normal renal contours. No renal mass or calculus. No hydronephrosis. SPLEEN: Normal in size and echogenicity. No mass identified. AORTA: No aneurysm. IVC: Unremarkable as visualized. MISCELLANEOUS: Small amount of abdominal ascites. IMPRESSION: 1. Cirrhotic-appearing liver. 2. Cholelithiasis and biliary sludge with gallbladder distension. 3. Small volume ascites. /[place] DICTATED BY: CYNTHIA JULIAN MD DATE: 07/29/251055 ELECTRONICALLY SIGNED BY: CYNTHIA JULIAN MD DATE: 07/29/251055 PATIENT: DALLAS BUCHANAN MR#: [id number] : 1970 SEX: F AGE: 55 LOCATION: [facility] ORDER 1108 STATUS: ADM IN REPORT#: [id number] SERVICE 110 REASON: sob ORDERING PHYSICIAN: PREET BOSTON MD PROCEDURE: CXR1VW - CHEST 1VW CHEST 1VW REASON: sob COMPARISON: Study from 07/21/2025 is available. FINDINGS: Single view of the chest was obtained. Lungs are clear. Heart size is normal. There is no pulmonary vascular congestion. There is a right-sided PIC catheter with tip in superior vena cava. There is a nasogastric tube with the tip in the fundus of the stomach. Mediastinum and bony thorax appear unremarkable. IMPRESSION: 1. No acute cardiopulmonary process 2. The support lines are in satisfactory position.. DICTATED BY: GREER FIORE MD DATE: 07/22/251349 ELECTRONICALLY SIGNED BY: GREER FIORE MD DATE: 07/22/25 135 PATIENT: DALLAS BUCHANAN MR#: [id number] : 1970 SEX: F AGE: 55 LOCATION: [facility] ORDER 0100 STATUS: ADM IN REPORT#: [id number] SERVICE 010 REASON: PICC LINE ORDERING PHYSICIAN: HEATHER LEACH APRN PROCEDURE: CXR1VW - CHEST 1VW EXAM: CR Chest, single view. CLINICAL HISTORY: PICC line COMPARISON: Prior same day chest radiograph. FINDINGS: Right-sided PICC catheter with tip in the cavoatrial junction. Subsegmental atelectasis in the right lower lobe. No evidence of pleural effusion or pneumothorax. The cardiomediastinal silhouette is within normal limits. No acute osseous abnormality. IMPRESSION: Right-sided PICC catheter with tip in the cavoatrial junction. Subsegmental atelectasis in the right lower lobe. No evidence of pleural effusion or pneumothorax. Compared to the prior study, there is interval placement of the right-sided PICC line and interval resolution of the subsegmental atelectasis in the left lower lobe. /[place] DICTATED BY: ELDON MILLER Jr., MD DATE: 07/21/25816 ELECTRONICALLY SIGNED BY: ELDON MILLER Jr., MD DATE: 07/21/25816 PATIENT: DALLAS BUCHANAN MR#: [id number] : 1970 SEX: F AGE: 55 LOCATION: [facility] ORDER 14 STATUS: [facility] REPORT#: [id number] SERVICE 12 REASON: CHEST PAIN/COUGH ORDERING PHYSICIAN: ALHAJI SHINE LEGAL BILLING SPECIALIST PROCEDURE: CXR1VW - CHEST 1VW EXAM: XR Chest, 1 View. CLINICAL HISTORY: 55 year old female with chest pain and cough. COMPARISON: None provided. FINDINGS: LUNGS: The lungs demonstrate evidence of atelectasis. PLEURAL SPACES: A small right pleural effusion is present. HEART: The heart size is normal. BONES: No acute osseous abnormality. IMPRESSION: 1. Small right pleural effusion and right lung base atelectasis. /[place] DICTATED BY: EDWIGE LEDESMA MD DATE: 07/20/252046 ELECTRONICALLY SIGNED BY: EDWIGE LEDESMA MD DATE: 07/20/252046 PATIENT: DALLAS BUCHANAN MR#: [id number] : 1970 SEX: F AGE: 55 LOCATION: [facility] ORDER 14 STATUS: REG ER REPORT#: [id number] SERVICE 1813 REASON: Abdominal Pain ORDERING PHYSICIAN: ALHAJI SHINE NP PROCEDURE: ABD PEL W - CT ABDOMEN/PELVIS W/CONTRAST ADDENDUM REPORT ADDENDUM: Results were shared by telephone at 23:23 pm on 07-20-2025 and acknowledged by Pt nurse Ms. SHIN BOYKIN. /[place] EXAM: CT Abdomen and Pelvis with Intravenous Contrast CLINICAL HISTORY: 55-year-old female with abdominal pain. TECHNIQUE: Axial computed tomography images of the abdomen and pelvis with intravenous contrast. Dose reduction technique was used including one or more of the following: automated exposure control, adjustment of mA and kV according to patient size, and/or iterative reconstruction. CONTRAST: Omnipaque 350, 75 mL COMPARISON: None provided. FINDINGS: LUNG BASES: Atelectasis and scarring at the lung bases. LIVER: Unremarkable. GALLBLADDER AND BILE DUCTS: Tiny gallstone seen. PANCREAS: Unremarkable. SPLEEN: Unremarkable. ADRENAL GLANDS: Unremarkable. KIDNEYS, URETERS, AND BLADDER: Dueñas catheter seen in the bladder lumen. No hydronephrosis or nephrolithiasis. No ureteral calculi. STOMACH AND BOWEL: Edema or loops of small bowel suggesting moderate small bowel enteritis. Free air in the upper abdomen is seen, suggesting perforated bowel. No obstruction. APPENDIX: No CT evidence for appendicitis. PERITONEUM: Moderate ascites in the abdomen and pelvis. No free air under the diaphragm. LYMPH NODES: No lymphadenopathy. REPRODUCTIVE: Unremarkable as visualized. VASCULATURE: No aortic aneurysm. ABDOMINAL WALL AND SOFT TISSUES: There is air in the subcutaneous soft tissue seen anteriorly, suggesting recent postsurgical changes; please correlate with surgical history. BONES: No fracture or suspicious osseous abnormality. IMPRESSION: 1. Moderate small bowel enteritis with free air in the upper abdomen, suggesting perforated bowel versus post surgical changes. No obstruction. 2. Moderate ascites in the abdomen and pelvis. 3. Air in the subcutaneous soft tissue anteriorly, suggesting recent postsurgical changes; please correlate with surgical history. /[place] DICTATED BY: EDWIGE LEDESMA MD DATE: 07/20/25 6058 ELECTRONICALLY SIGNED BY: DATE: EXAM: CT Abdomen and Pelvis with Intravenous Contrast CLINICAL HISTORY: 55-year-old female with abdominal pain. TECHNIQUE: Axial computed tomography images of the abdomen and pelvis with intravenous contrast. Dose reduction technique was used including one or more of the following: automated exposure control, adjustment of mA and kV according to patient size, and/or iterative reconstruction. CONTRAST: Omnipaque 350, 75 mL COMPARISON: None provided. FINDINGS: LUNG BASES: Atelectasis and scarring at the lung bases. LIVER: Unremarkable. GALLBLADDER AND BILE DUCTS: Tiny gallstone seen. PANCREAS: Unremarkable. SPLEEN: Unremarkable. ADRENAL GLANDS: Unremarkable. KIDNEYS, URETERS, AND BLADDER: Dueñas catheter seen in the bladder lumen. No hydronephrosis or nephrolithiasis. No ureteral calculi. STOMACH AND BOWEL: Edema or loops of small bowel suggesting moderate small bowel enteritis. Free air in the upper abdomen is seen, suggesting perforated bowel. No obstruction. APPENDIX: No CT evidence for appendicitis. PERITONEUM: Moderate ascites in the abdomen and pelvis. No free air under the diaphragm. LYMPH NODES: No lymphadenopathy. REPRODUCTIVE: Unremarkable as visualized. VASCULATURE: No aortic aneurysm. ABDOMINAL WALL AND SOFT TISSUES: There is air in the subcutaneous soft tissue seen anteriorly, suggesting recent postsurgical changes; please correlate with surgical history. BONES: No fracture or suspicious osseous abnormality. IMPRESSION: 1. Moderate small bowel enteritis with free air in the upper abdomen, suggesting perforated bowel versus post surgical changes. No obstruction. 2. Moderate ascites in the abdomen and pelvis. 3. Air in the subcutaneous soft tissue anteriorly, suggesting recent postsurgical changes; please correlate with surgical history. /[place] DICTATED BY: EDWIGE LEDESMA MD DATE: 07/20/252317 ELECTRONICALLY SIGNED BY: EDWIGE LEDESMA MD DATE: 07/20/252317 ASSESSMENT: Acute kidney injury Hyponatremia Bacterial peritonitis Perisplenic and infrasplenic fluid collection with splenomegaly Cholelithiasis 2 mm perforation of the colonic anastomosis Anastomosis leak Bilious peritonitis S/p Diagnostic laparoscopy, abdominal washout, drain placement and diverting loop ileostomy creation Atrophic vaginitis Anemia Diabetes Mellitus Type 2 Septic Shock Cirrhosis of liver Oesophageal Varices PLAN: Labs, diagnostic, radiologic exams reviewed and interpreted by myself and supervising physician. We have reviewed external records in detail Continue with antibiotics as per ID BiPAP as necessary, for respiratory distress Monitor blood pressure adjust medication doses as needed Avoid hypotensive episodes May use Dilaudid 0.5 mg IV every 6 hours as needed for severe pain Monitor blood sugars Strict intake, output, and daily weight should be monitored Please renally adjust medications Avoid nephrotoxic and nonsteroidal drugs Avoid contrast if possible Will continue to monitor renal function, anemia, electrolytes Treatment plan discussed with patient Questions were answered We have discussed with the other team physicians in detail about the care plan We will continue to monitor the patient closely ATTESTATION BY PHYSICIAN I have seen and examined the patient. I reviewed the documentation, medical decision making, and treatment plan as noted by the mid-level provider above. I agree with the findings and plan of care. CIELO PORTILLO MD, [facility] Aug 18, 2025 14:18
--- NOTE | 2025-08-18 15:00 | PN ---
INFECTIOUS DISEASE PROGRESS NOTE Date of Service: Aug 18, 2025 SUBJECTIVE: Patient was seen and examined at bedside in room 432. Patient is awake, alert and oriented x3. Stated she continues to ambulate with her daughter's assistance and tolerating well. Per report patient ate 25% for breakfast. Feeling less nauseated and no abdominal pain at this time. TPN continues at 20 mL/hour. Remains afebrile, temperature 98.2 and we will continue on Zosyn and fluconazole. No other issues reported by nursing. PHYSICAL EXAM EYES: Anicteric. Pupils equal and reactive. HENT: No oral thrush seen, moist Oral mucosa. NECK: Supple, no JVD or thyromegaly. LUNGS: Good air entry. No rales, no rhonchi. CARDIOVASCULAR: S1, S2 regular. No murmur heard. ABDOMEN: Soft, non tender, bowel sounds present. Left Perisplenic abscess percutaneous drainage catheter. Right ileostomy. Right cholecystostomy tube. CENTRAL NERVOUS SYSTEM: Awake, alert, oriented x 3. SKIN: No rashes, no swelling. LYMPHATICS: No peripheral lymphadenopathy. MUSCULOSKELETAL: No joint swelling, erythema or tenderness. EXTREMITIES: No cyanosis or clubbing. BACK: No deformity, no pressure ulcer. GENITOURINARY: No dysuria or hematuria. Vital Sign (Last 12 Hours) 08/18/25 08/18/25 04:00 08:00 Temp 98.1 98.2 Pulse 82 80 Resp 18 16 B/P (MAP) 106/62 112/71 Pulse Ox 93 97 O2 Delivery Room Air Room Air Intake & Output (last 24hrs) 08/17/25 08/17/25 08/18/25 15:00 23:00 07:00 Intake Total 1772.0 ml Output Total 300 ml 240 ml Balance 1472.0 ml -240 ml LABS: Laboratory: Test 08/18/25 11:42 08/18/25 03:20 08/17/25 16:45 Range/Units Whole Blood Glucose 119 H 70-110 MG/DL White Blood Count 4.8 4.8-10.8 K/uL Red Blood Count 3.20 L 4.00-5.50 MIL/uL Hemoglobin 9.6 L 12.0-16.0 g/dL Hematocrit 29.8 L 36-48 % Mean Corpuscular Volume 93.1 79-99 fL Mean Corpuscular Hemoglobin 30.0 27.0-33.0 pg Mean Corpuscular Hemoglobin Concent 32.2 32.0-36.0 g/dL Red Cell Distribution Width 17.5 H 11.0-15.5 % Platelet Count 220 130-400 K/uL Mean Platelet Volume 9.8 7.5-10.5 fL Immature Granulocyte % (Auto) 2.5 H 0-1 % Neutrophils (%) (Auto) 65.5 40.0-77.0 % Lymphocytes (%) (Auto) 16.6 L 21.0-51.0 % Monocytes (%) (Auto) 10.6 3.0-13.0 % Eosinophils (%) (Auto) 4.0 0.0-8.0 % Basophils (%) (Auto) 0.8 0.0-5.0 % Neutrophils # (Auto) 3.2 1.8-7.7 K/uL Lymphocytes # (Auto) 0.8 L 1.0-4.8 K/uL Monocytes # (Auto) 0.5 0.1-1.0 K/uL Eosinophils # (Auto) 0.19 0.00-0.70 K/uL Basophils # (Auto) 0.04 0.00-0.20 K/uL Absolute Immature Granulocyte (auto 0.12 0-1 K/uL Nucleated Red Blood Cells 0.0 0.0-0.19 % Sodium Level 130 L 136-145 mmol/L Potassium Level 4.4 3.5-5.1 mmol/L Chloride Level 99 L 101-111 mmol/L Carbon Dioxide Level 25 21-32 mmol/L Blood Urea Nitrogen 9 7-18 mg/dL Creatinine 0.7 0.5-1.0 mg/dL Glomerular Filtration Rate Calc 101 >90 mL/min Random Glucose 97 70-105 mg/dL Uric Acid 1.9 L 2.6-7.2 mg/dL Total Calcium 8.9 8.5-10.1 mg/dL Phosphorus Level 2.9 2.5-4.9 mg/dL Magnesium Level 1.80 1.80-2.40 mg/dL Total Bilirubin 0.5 0.2-1.0 mg/dL Aspartate Amino Transf (AST/SGOT) 51 H 10-37 U/L Alanine Aminotransferase (ALT/SGPT) 22 12-78 U/L Alkaline Phosphatase 178 H 50-136 U/L Total Protein 7.6 6.0-8.3 g/dL Albumin 2.6 L 3.5-5.0 g/dL Thyroid Stimulating Hormone (TSH) 0.34 #L 0.36-3.74 uIU/mL Urine Random Creatinine 58.05 30-135 mg/dL Urine Random Sodium < 13 L 40-220 mmol/l Urine Random Potassium 29 25-125 mmol/L Urine Random Chloride 27 L 110-250 mmol/L ASSESSMENT: Acute cholecystitis, s/p cholecystostomy tube placement on 08/02/2025. Concern for cholecystostomy tube dislodgement status post cholecystogram with findings of multiple gallstones on 08/09/2025. Perisplenic abscess, s/p CT-guided drainage placement on 08/09/2025. Persistent abdominal pain, s/p EGD with findings acute gastritis. Septic shock, resolved. Possible continues bacterial peritonitis. Generalized peritonitis with ESBL and E coli infection. Infection with multidrug resistant organism. Hypoalbuminemia, improving. Suspected bowel perforation, s/p diagnostic laparoscopy, abdominal washout, ileostomy creation and CHRIS drain placement on 07/21/2025, s/p CHRIS drain removal. Diabetes mellitus. Recent colovesical fistula repair with sigmoid colon resection and anastomosis on 07/09/2025 PLAN: Continue Zosyn. Continue fluconazole. Continue pain management. Continue GI prophylaxis. Continue antidiabetics. Continue nutritional support, currently on GI soft and the PPN at 20 mL/hour. Continue drainage tube care. This case was reviewed and discussed with my supervising physician Dr. Roger and the above assessment and plan was formulated and agreed upon. ATTESTATION BY PHYSICIAN I have seen and examined the patient. I reviewed the documentation, medical decision making, and treatment plan as noted by the mid-level provider above. I agree with the findings and plan of care. AMIE ROGER MD, MIRTA L FNP Aug 18, 2025 15:00
[2025-08-19] VITALS (7 sets, daily range): BP systolic 100–126; BP diastolic 66–76; PULSE 83–91; RESP 17–20; TEMP 97.9–98.2; O2SAT 93–95
[2025-08-19 03:53] LABS: IMMATURE GRANULOCYTE ABSOLUTE 0.12 K/uL (0-1); NUCLEATED RED BLOOD CELLS 0.0 % (0.0-0.19); PLATELET COUNT (AUTO) 239 K/uL (130-400); RED BLOOD CELL COUNT(AUTO) 3.28 MIL/uL (4.00-5.50); RED CELL DISTRIBUTION WIDTH 17.9 % (11.0-15.5); WHITE BLOOD COUNT (AUTO) 5.0 K/uL (4.8-10.8)
[2025-08-19 04:00] LABS: CREATININE 0.8 mg/dL (0.5-1.0); GLOMERULAR FILTR. RATE CALC 86.0 mL/min (>90); GLUCOSE,RANDOM 169.0 mg/dL (70-105); SODIUM SERUM 129.0 mmol/L (136-145); UREA NITROGEN, BLOOD 11.0 mg/dL (7-18)
--- NOTE | 2025-08-19 13:21 | PN ---
[facility] PROGRESS NOTE Date of Service: Aug 19, 2025 Time of Service: 13:21 SUBJECTIVE: Ms. Gray is a 55-year-old female that was seen and examined today on 07/20/2025. Patient reports that she came to the emergency department with a chief complaint of abdominal pain. Onset was 07/09/2025. Location is all four quadrants. Duration is constant. Character is described as pressure and " like I have a lot of gas trapped. " there was no alleviating factors. There was no aggravating factors. Patient reports associated abdominal swelling. 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 After the discharge she was taking pain medications and her condition started worsening after few days. She is in constant follow up with Dr Gann. Today in the emergency department WBCs 21.2, left shift neutrophils 85.5%, BUN 26, creatinine 3.1, GFR 17, lactic acid 8.0, no urinalysis has been collected or sent to lab, CT of abdomen and pelvis showed of free air in the abdomen which could be a suspected bowel perforation versus postsurgical changes, moderate ascites, fissure post surgical changes. Chest x-ray shows right pleural effusion. Additionally patient had a heart rate of 125, respirations 26, together with leukocytosis and lactic acidosis patient met clinical sepsis criteria additionally patient's blood pressure dropped to 85/50 mmHg requiring vasopressor support therefore meeting criteria for septic shock. Patient will be admitted to the intensive care unit. Emergency room physician spoke with patient's surgeon, Dr. Gann who requested patient be admitted under hospitalist service and she will follow this case along. 07/21/25 Patient was evaluated at the bedside. She was accompanied by her daughter. She is oriented to the time, place and person. She complained of abdominal pain in all the quadrants. She hasn't had bowel movement since Saturday and also is unable to pass flatus at this time. She has guarding, rigidity and tenderness all over the abdomen, showing the signs of peritonitis. She was seen by Dr Gann this m and is planned to be taken to OR this afternoon. Dueñas catheter is in place, as she wasn't able to pass the urine. There is no fever, chills and any other signs of infection. 07/22/25 Patient was evaluated at the bedside. She was accompanied by her daughter. She is oriented to the time, place and person. She underwent Diagnostic laparoscopy, abdominal washout, drain placement and diverting loop ileostomy creation, The procedure revealed Bilious peritonitis, 2 mm perforation of the colonic anastomosis. She is hemodynamically stable with Blood pressure of 110/73 and HR of 83. Currently she complains of abdominal pain which is getting better than yesterday, its 3-4/10 intensity. There is no rigidity. She is anxious about the outcomes and had discussion regarding her current clinical status and lab parameters. There is no fever, chills and any other signs of infection. 07/23/25 Patient was evaluated at the bedside. She was accompanied by her daughter. She is oriented to the time, place and person. She status post diagnostic laparoscopy, abdominal washout, drain placement and diverting loop ileostomy creation. Currently she complains of abdominal pain which is 5/10 intensity. She also complaints of mild lower back pain There is no fever, chills and any other signs of infection. She has CHRIS drain in-situ with clear fluid along with colostomy bag. She is currently tolerating clear liquid diet. 07/24/2025 Patient is seen and examined at the bedside. Vitals blood pressure ranging in 100s/50s, pulse rate 50s, SpO2 greater than 95% on room air. She mentions about experiencing pressure-like discomfort on the right side of the abdomen and pain when she tries to eat. No acute events last night. She denies fever, chills, nausea, vomiting, chest pain. CHRIS output approximately 100cc/hr, serosanguineous fluid. Ileostomy bag in place. She is tolerating clear liquid diet without any nausea/vomiting. Labs hemoglobin 9.8, BUN 38, creatinine improved from 1.6-1.1. 07/25/2025 Patient is seen and examined at the bedside. She complains of abdominal pain which is 7/10 in intensity. No acute events last night. She denies fever, chills, nausea, vomiting, chest pain. CHRIS output approximately 100cc/hr, serosanguineous fluid. Ileostomy bag in place. The patient has been started on spironolactone 25mg BID and Lasix 20 mg once daily. There is high output from CHRIS but it is clear serous, most likely related to her ascites from her history of liver cirrhosis. She is tolerating clear liquid diet without any nausea/vomiting. 07/26/2025 Patient is seen and examined at the bedside. She complains of abdominal pain which remains constant. No acute events last night. She denies fever, chills, nausea, vomiting, chest pain. Patient is status post with a CHRIS drain. The drain has been collecting the serosanguineous fluid secondary to ascites. She has been tolerating liquid diet and her diet has been advanced to soft diet. She still h as bloating for which probiotics and fibers has been recommended. Hemoglobin has gradually trended down to 9.2 and was given IV Venofer. Patient to get up and ambulate and work with physical therapy. 07/27/2025 Patient is seen and examined at the bedside. She complains of abdominal pain which is 6/10 in intensity. No acute events last night. She denies fever, chills, nausea, vomiting, chest pain. Patient is unable to tolerate the soft diet, hence she is currently receiving the liquid diets. The CHRIS drain output is still high and there was small amount of drainage observed in the right ileostomy. 07/28/2025 Patient is seen and examined at the bedside. She complains of abdominal pain which is 9/10 in intensity. No acute events last night. She denies fever, chills, nausea, vomiting, chest pain. Patient reported pain after eating but no nausea or vomiting. WBC is gradually trending up from 8.3-7.3-11.1-11.8. She had lidocaine patch placed this morning. She was started on simethicone 80 mg yesterday. Pertinent she is currently receiving Dilaudid 0.5 mg. Abdominal ultrasound has been ordered for further assessment. 07/29/2025 Patient is seen and examined at the bedside. She continues to complain of severe abdominal pain, rated 9/10 in intensity, unchanged from prior. She is currently receiving Dilaudid 0.5 mg for pain. She reports discomfort related to Dueñas catheterization. She denies fever, chest pain, nausea or vomiting at this time. No acute events were reported overnight. Blood pressure noted today is noted to be 98/54 mm Hg which is slightly low. Per surgery team, stoma is likely to be removed today. Hemoglobin has trended down from 9.7 g/dl to 9.0 g/dl. 07/30/2025 Patient is seen and examined at the bedside. She continues to complain of severe abdominal pain. Her abdominal distention has slightly improved. Dueñas's catheter was removed due to persistent discomfort. We will continue with scheduled removal of the ascites fluid and from CHRIS bulb. Ultrasound of abdomen was concerning for cholelithiasis with biliary sludge and gallbladder distention. HIDA scan was performed today. If consistent with cholecystitis patient will need cholecystostomy tube placement. 07/31/2025 Patient is seen and examined at the bedside. She was accompanied by her daughter. She continues to complain of severe abdominal pain. She is currently on Dilaudid 0.5mg Q4H PRN, which relieves the symptoms for 2-3 hours, after that she develops same level of pain and discomfort again. Currently awaiting the HIDA scan results. Her sodium level is 133 and albumin level is trending downwards from 2.3 to 2.1. Her Iron panel results showed: Iron 20L, TIBC 147L and %sat 16.3L. For her continuos pain she is started on Fentanyl 25mcg. CHRIS drain culture has beens sent. Based on the results of HIDA scan, CT chest will be planned. 08/01/2025: Patient is seen and examined this morning at bedside. She was accompanied by her daughter. The patient complains of severe abdominal pain. She is currently being managed with Benjamin, and Dilaudid for breakthrough pain. HIDA scan results are back, and show acute cholecystitis. Surgery has been made aware of the results. IR has been consulted for cholecystostomy tube placement. The patient will be started on PPN, as recommended by general surgery. The patient follows with Dr. Sol outpatient for her liver cirrhosis. The patients daughter would like her gold stamper Dr. Sol to be involved in the patients care, and be updated with her status. 08/02/2025: Patient is seen and evaluated in the room 432. She was accompanied by her daughter. She complains of severe abdominal pain. She also complained of bleeding through her vagina, pink tinged urine. Her vitals are in the normal range. Her labs are in the normal range except for Hb is 8.6, Na is 135, K is 5.2, BUN is 4, Glucose is 150, CRP is 103.90. She went for placement of cholecystectomy tube by IR. We did a pelvic exam and ordered a vaginal estrogen cream and urinalysis. Also for her hyperkalemia we checked the potassium again and its 4.1. So we will repeat the labs tomorrow. We ordered a dose of albumin for her. 08/03/2025: Patient is seen and evaluated in the room 432. She has mild abdominal pain today. Her pain improved after the placement for cholecystotomy tube. Her vitals are in the normal range. Her labs are normal except for hemoglobin 8.2, glucose 156, CRP 89.8. Her aerobic and anaerobic culture of drain showed no growth. Gastroenterology saw the patient and they recommended 25 grams of 25% IV albumin q12H for 3 days. Her bleeding through the vagina decreased. The drainage through the left abdomen is 100ml, right abdomen is 20ml, left anterior abdomen 5ml. 08/04/2025: Patient is seen and evaluated in the room 432. She has abdominal pain today. Her vitals are in the normal range. Her labs are normal except for Hb is 8, CRP is 72.10, glucose is 130. Aerobic and anaerobic drain culture showed no growth. She is not able to tolerate her food. The drainage through the left abdomen is 100ml, right abdomen is 20ml, left anterior abdomen 5ml. Gastroenterology is planning to do EGD tomorrow. Surgery wanted to do a CT abdomen and pelvis with IV contrast. CT scan showed perisplenic and infrasplenic fluid collection measuring 6.0 x 6.1 x 8.9 cm, splenomegaly, with spleen measuring 15.2 cm, cholecystostomy tube in situ with decompressed gallbladder, abdominal drain in situ with tip in the pelvis. We ordered T.bilirubin and we will monitor the output from colostomy tube. We are also planning to add metoclopramide. 08/05/2025: Patient is seen and evaluated in the room 432. She has abdominal pain today. Her abdomen is tender to touch and warm. Her vital signs are in the normal range except for BP is 117/45. Her labs are normal except for Hb is 8.2, sodium is 135, creatinine is 0.3, CRP is 60.9 The drain output from left abdomen is 40ml, left anterior abdomen 0ml, right abdomen 0ml. Her saturation is 100% on 10L of O2. Her labs are in the normal range except for Hb is 8.2, HCT is 25.9, sodium is 135, glucose is 107, CRP is 60.90. She underwent endoscopy today and they did biopsy from 3 sites. GI said that they will consult radiology to check whether CHRIS drain and cholecystostomy tube are in place. General surgery will consult IR to evaluate perisplenic fluid collection for potential aspiration. 08/06/2025: Patient is seen and evaluated in the room 432. She has abdominal pain today. Her abdomen is tender to touch and warm. Her vital signs are in the normal range except for 97/63. Her labs are in the normal range except for Hb is 8.1, sodium is 135, blood glucose is 151, CRP 53.60. We are waiting for IR consult for evaluation and for potential aspiration of perisplenic fluid. The drain output from right abdomen is 20ml. 08/07/2025: Patient is seen and evaluated in the room 432. She has abdominal pain today. Her abdomen is tender to touch and warm. Her vital signs are in the normal range except for blood pressure which is 102/60. Her labs are in the normal range except for Hb is 8.5, WBC is 4.4, RDW is 17.3, sodium is 134, glucose is 147. We are waiting for IR consult for evaluation and for potential aspiration of perisplenic fluid. The drain output from right abdomen is 20ml. The GENERAL SALES MANAGER told me that she eats her food after taking her pain medications. Nurse is planning to start full liquid diet for lunch. 08/08/2025: She was evaluated at the bedside this morning. She is AAO x3. she complained of epigastric pain which gets worse with food . Moderate tenderness was appreciated on the epigastric region. Her blood pressure is 99/46, pulse 80. Remarkable lab is for WBC of 4.8, hemoglobin 9, CRP 43.90. She is scheduled with IR for perisplenic fluid aspiration and checking the position of cholecystostomy tube. She is on full liquid diet. She is on Zosyn, fluconazole. Surgery, GI, ID on the board. Rest of the plan as discussed below. 08/09/2025: Patient went to label fuser tender for PROCEDURE. As per nurse, her cholecystostomy tube was already correctly positioned but had some stones so tube was flushed. She complained of epigastric and pelvic pain. For pain control, fentanyl patch has been ordered. She is pending perisplenic fluid aspiration by IR. Her blood pressure is 98/58, pulse 90. She is currently NPO. She is on Zosyn, fluconazole. Surgery, GI, ID on the board. Rest of the plan as discussed below. 08/10/2025: Patient was seen and examined at bedside. She underwent CT GUIDED PERISPLENIC PIGTAIL DRAINAGE CATHETER PLACEMENT with Aspiration of perisplenic fluid. There has been 25 ml sanguinous drainage so far in the catheter. Her cholecystostomy tube has had 30 mL drainage in the past 24 hours. She is currently on clear liquid diet tolerating it well. She continues to complain pain in her abdomen without any peritoneal signs. She was started on fentanyl patch yesterday. Gram stain and body fluid culture were sent after drainage of perisplenic abscess which showed RARE GRAM POSITIVE COCCI after 1 day. Patient is currently on Zosyn. 08/11/2025: Patient was seen and examined. She continues to complain of abdominal pain. Her multimodal pain medications were adjusted with fentanyl increased to 25mcg and Dilaudid frequency changed from q.4h to q.6h. She is currently on clear liquid diet and complains of pain while eating. She continues on Zosyn and fluconazole. We are waiting for culture results after drainage of perisplenic abscess. Incision site is clean, dry and intact. Will continue to follow recommendations from ID, General surgery and Nephrology. 08/12/2025: Patient was seen and examined at bedside. She complained of pain in right upper abdomen as well as left lower quadrant, along the drainage catheter insertion. No peritoneal signs present. She is currently on multimodal pain management. Today, we are advancing her to full liquid diet. Culture results have been negative so far. Incision site is clean, dry and intact. Will continue to follow recommendations from ID, General surgery and Nephrology. 08/13/2025: Patient was seen and examined at bedside. She complained of pain in right upper quadrant and left quadrant of abdomen along the line of drainage catheter placement. Comparatively, her pain is better than yesterday and patient states that she feels pain in between pain medication. No peritoneal signs are present. We will follow up with General surgery for CHRIS drain removal as there has been 0 to minimal drainage in the past few days. Patient is currently on full liquid diet. 08/14/2025 Patient is seen and examined at the bedside. She complains of intermittent pain in the left upper quadrant near the drainage catheter site which is well controlled with pain medications. No acute events last night. Vitals blood pressure in 90s/50s. Urine output 1.4 L, stool 1.2 L [ileostomy bag], 23 mL from left abdominal drain, 20 mL from right abdominal drain, 15 mL from RUQ drain over the last 24 hours. She denies fever, chills, chest pain/shortness of breath, tingling/numbness/pain in bilateral lower extremities. She is able to tolerate GI soft/bland diet without any nausea/vomiting. Labs WBC 4.1, hemoglobin stable at 8.9. We will continue parenteral nutrition. 08/15/2025: Patient was seen and examined this morning at bedside. The patient reports continued abdominal pain, worse on her left upper quadrant. The patient states that when she takes her pain medication, the pain resolves. However, without the pain medication, the patient reports that the pain remains prominent. Duloxetine will be started for its dual benefit in managing the abdominal pain and addressing potential underlying mood symptoms that may be amplifying the patients pain perception. I educated the patient on importance of eating her GI soft diet. We will continue to follow ID and surgery recommendations. 08/16/2025: Patient was seen and examined this morning at bedside in room 432. Patient admits to have continued nausea since yesterday and is unable to tolerate any food. Her CHRIS drain was removed yesterday and still continues to have left upper quadrant and right upper quadrant drains. Patient is discontinued from Dilaudid and is currently managed with p.r.n. Benjamin q.4. Dr. Gann recommended to reduce the dose of TPN to 40 mL to assess if patient's appetite improves. They also changed metoclopramide to scheduled q.12. We will follow the surgery and ID recommendations. 08/17/2025: Patient was examined at bedside in room 432. Patient reports improved nausea and is able to tolerate fruits however still does not have appetite for regular meals. Patient reports mild abdominal tenderness however denies fever, nausea, vomiting. Patient has no abdominal rigidity. Patient has abdominal drains have minimal drainage and shows no signs of infection. We encouraged the patient to eat GI soft diet as tolerated. We will continue to follow recommendations from ID and surgery. 08/18/2025: Patient was examined at bedside in room 432. Patient reports improved nausea and is able to tolerate her diet however only completes 25-50% of her meals. Her TPN rate was reduced to 20 mL/hour. Patient has mild abdominal tenderness at the right cholecystostomy drain site and left upper quadrant drain, without signs of infection. Patient has ileostomy bag was replaced yesterday for leakage and shows cleared fluid. We encouraged the patient to complete her meals. Surgical team is planning to discharge the patient by the end of the week and we will follow their recommendations closely. 08/19/2025: Patient was examined at bedside in room 432. Patient reports improved nausea and is able to tolerate her diet, however does not complete her meals. Her TPN and fat emulsions will be stopped today and is encouraged to increase dietary intake and protein with Ensure drinks. The surgical team plans to remove her left upper quadrant drain after performing an abscess fistula study. In the meantime case management has been consulted for possible placement in a long term versus home health care. Otherwise patient remained afebrile, mild abdominal pain around the drainage catheter sites, no guarding or rigidity. We will follow the surgical team recommendations closely and anticipate her discharge by the end of the week. REVIEW OF SYSTEMS CONSTITUTIONAL: No fever, chills, or night sweats. NEUROLOGICAL: Denies headache, sensory and motor deficit. CARDIOVASCULAR: Denies any exertional angina, dyspnea on exertion, palpitations. PULMONARY: Denies any shortness of breath, cough, phlegm/sputum, hemoptysis, pleuritic chest pain. GASTROINTESTINAL: Denies nausea. Denies vomiting. No peritoneal signs observed . Mild abdominal discomfort at the drain sites. GENITOURINARY: Denies frequency, urgency, nocturia, hematuria or incontinence. PHYSICAL EXAM GENERAL APPEARANCE: The patient is alert, awake and oriented and bedbound. NEUROLOGICAL: No sensory and motor deficits. CHEST: Normal chest expansion. LUNGS: Normal Vesicular breath sound. Absence of any rales, rhonchi or any wheezing. CARDIOVASCULAR: Regular. S1 and S2 normal. No appreciable rubs, murmurs or gallops. ABDOMEN: Abdomen is soft and slightly tender. Ileostomy creation. Cholecystostomy and left upper abdominal quadrant catheter in place. Absence of guarding, rigidity and rebound tenderness GENITOURINARY: No suprapubic tenderness. No costovertebral angle tenderness. Vital Signs (last 8hr) Date Time Temp Pulse Resp B/P (MAP) Pulse Ox O2 Delivery O2 Flow Rate FiO2 08/19/25 12:00 98.2 83 18 101/71 95 Room Air 08/19/25 08:00 98.1 84 17 110/72 95 Room Air LABS: Laboratory: Test 08/19/25 11:16 08/19/25 03:30 08/18/25 03:20 08/17/25 16:45 Range/Units Whole Blood Glucose 104 70-110 MG/DL White Blood Count 5.0 4.8-10.8 K/uL Red Blood Count 3.28 L 4.00-5.50 MIL/uL Hemoglobin 9.8 L 12.0-16.0 g/dL Hematocrit 30.9 L 36-48 % Mean Corpuscular Volume 94.2 79-99 fL Mean Corpuscular Hemoglobin 29.9 27.0-33.0 pg Mean Corpuscular Hemoglobin Concent 31.7 L 32.0-36.0 g/dL Red Cell Distribution Width 17.9 H 11.0-15.5 % Platelet Count 239 130-400 K/uL Mean Platelet Volume 9.9 7.5-10.5 fL Immature Granulocyte % (Auto) 2.4 H 0-1 % Neutrophils (%) (Auto) 65.6 40.0-77.0 % Lymphocytes (%) (Auto) 16.3 L 21.0-51.0 % Monocytes (%) (Auto) 10.7 3.0-13.0 % Eosinophils (%) (Auto) 4.0 0.0-8.0 % Basophils (%) (Auto) 1.0 0.0-5.0 % Neutrophils # (Auto) 3.3 1.8-7.7 K/uL Lymphocytes # (Auto) 0.8 L 1.0-4.8 K/uL Monocytes # (Auto) 0.5 0.1-1.0 K/uL Eosinophils # (Auto) 0.20 0.00-0.70 K/uL Basophils # (Auto) 0.05 0.00-0.20 K/uL Absolute Immature Granulocyte (auto 0.12 0-1 K/uL Nucleated Red Blood Cells 0.0 0.0-0.19 % Sodium Level 129 L 136-145 mmol/L Potassium Level 5.0 3.5-5.1 mmol/L Chloride Level 98 L 101-111 mmol/L Carbon Dioxide Level 24 21-32 mmol/L Blood Urea Nitrogen 11 7-18 mg/dL Creatinine 0.8 0.5-1.0 mg/dL Glomerular Filtration Rate Calc 86 >90 mL/min Random Glucose 169 H 70-105 mg/dL Total Calcium 8.9 8.5-10.1 mg/dL Serum Osmolality 271 L 278-305 mOsm/kg Uric Acid 1.9 L 2.6-7.2 mg/dL Phosphorus Level 2.9 2.5-4.9 mg/dL Magnesium Level 1.80 1.80-2.40 mg/dL Total Bilirubin 0.5 0.2-1.0 mg/dL Aspartate Amino Transf (AST/SGOT) 51 H 10-37 U/L Alanine Aminotransferase (ALT/SGPT) 22 12-78 U/L Alkaline Phosphatase 178 H 50-136 U/L Total Protein 7.6 6.0-8.3 g/dL Albumin 2.6 L 3.5-5.0 g/dL Thyroid Stimulating Hormone (TSH) 0.34 #L 0.36-3.74 uIU/mL Urine Osmolality 278 50-1200 mOsm/kg Urine Random Creatinine 58.05 30-135 mg/dL Urine Random Sodium < 13 L 40-220 mmol/l Urine Random Potassium 29 25-125 mmol/L Urine Random Chloride 27 L 110-250 mmol/L Current Medications Medications (Trade) Dose Ordered Sig/Gregory Route PRN Reason Start Time Stop Time Status Last Admin Dose Admin Acetaminophen (TYLenol 500MG TAB) 500 mg Q6H6 PRN PO MILD PAIN (1-3) 07/27/25 16:30 08/07/25 12:15 DC Acetaminophen (TYLenol 500MG TAB) 500 mg Q6H6 PRN PO MILD PAIN (1-3) 08/07/25 10:00 08/07/25 10:03 DC Acetaminophen (TYLenol 650MG SUPPOSITORY) 650 mg Q6H PRN RC MILD PAIN (1-3) 07/21/25 00:00 07/27/25 16:22 DC Acetaminophen/ Hydrocodone Bitart (NORco 5/325MG) 1 tab Q4H PRN PO MODERATE PAIN (4-6) 07/31/25 16:30 08/05/25 16:29 DC 08/05/25 14:57 1 TAB Acetaminophen/ Hydrocodone Bitart (NORco 5/325MG) 1 tab Q4H PRN PO MODERATE PAIN (4-6) 08/07/25 12:30 08/12/25 12:29 DC 08/12/25 00:46 1 TAB Acetaminophen/ Hydrocodone Bitart (NORco 5/325MG) 1 tab Q4H PRN PO MODERATE PAIN (4-6) 08/12/25 16:30 08/17/25 16:29 DC 08/17/25 10:17 1 TAB Acetaminophen/ Hydrocodone Bitart (NORco 5/325MG) 1 tab Q6H PRN PO MODERATE PAIN (4-6) 08/17/25 21:30 08/22/25 21:29 08/19/25 05:59 1 TAB Albumin Human 50 ml @ 100 mls/hr Q12H IV 08/02/25 21:30 08/05/25 09:59 DC 08/05/25 10:12 100 MLS/HR Albumin Human 50 ml @ 0 mls/hr Q12H IV 08/02/25 18:30 08/02/25 20:04 DC Albumin Human 100 ml @ 0 mls/hr ONCE IV 07/25/25 12:00 07/26/25 11:59 DC 07/25/25 13:43 100 MLS/HR Clotrimazole (Lotrimin) 1 GM BID TP 07/29/25 21:00 08/28/25 20:59 08/19/25 10:52 1 GM Cyclobenzaprine HCl (Cyclobenzaprine HCl) 5 mg TID PO 07/25/25 14:00 07/26/25 14:00 DC 07/26/25 14:19 5 MG Duloxetine HCl (CymbALTA 30 mg CAP) 30 mg BID PO 08/15/25 21:00 09/14/25 20:59 08/19/25 09:10 30 MG Fat Emulsion Intravenous 250 ml @ 42 mls/hr DAILY10 IV 08/13/25 10:00 08/19/25 10:44 DC 08/18/25 09:57 42 MLS/HR Fentanyl (DURAgesic 12 MCG/HR PATCH) 12 mcg Q72H TD 08/09/25 13:00 08/09/25 15:19 DC Fentanyl (DURAgesic 12 MCG/HR PATCH) 12 mcg Q72H TD 08/09/25 15:30 08/11/25 10:32 DC 08/09/25 15:38 12 MCG Fentanyl (DURAgesic 25 MCG/HR PATCH) 25 mcg Q72H TD 07/31/25 14:30 07/31/25 14:44 DC Fentanyl (DURAgesic 25 MCG/HR PATCH) 25 mcg Q72H TD 08/12/25 15:30 08/12/25 16:00 DC Fentanyl (DURAgesic 25 MCG/HR PATCH) 25 mcg Q72H TD 08/12/25 21:00 08/17/25 20:59 DC 08/16/25 00:02 25 MCG Fluconazole/ Sodium Chloride (DiFLUCan 200 MG/ NS 100 ML) 200 mg Q24H IVPB 07/21/25 21:00 08/20/25 20:59 08/18/25 21:18 200 MG Furosemide (LASix 20MG TAB) 20 mg DAILY PO 07/25/25 11:00 08/02/25 11:53 DC 08/02/25 09:42 20 MG Gabapentin (NEURontin 100 mg CAP) 100 mg TID PO 07/29/25 14:00 08/02/25 09:21 DC 08/01/25 20:14 100 MG Gabapentin (NEURontin 100 mg CAP) 100 mg TID PO 08/11/25 21:00 09/10/25 20:59 08/19/25 09:10 100 MG Home Med (Compound Po Narcotic) HS TD 08/12/25 21:00 09/11/25 20:59 Hydromorphone HCl (DiLAUDid 0.5MG INJ) 0.5 mg Q4H PRN IVP SEVERE PAIN (7-10) 07/24/25 10:00 07/29/25 09:59 DC 07/29/25 08:22 0.5 MG Hydromorphone HCl (DiLAUDid 0.5MG INJ) 0.5 mg Q4H PRN IVP SEVERE PAIN (7-10) 07/29/25 13:30 08/03/25 13:29 DC 08/03/25 13:09 0.5 MG Hydromorphone HCl (DiLAUDid 0.5MG INJ) 0.5 mg Q4H PRN IVP SEVERE PAIN (7-10) 08/03/25 18:00 08/07/25 10:03 DC 08/07/25 05:09 0.5 MG Hydromorphone HCl (DiLAUDid 0.5MG INJ) 0.5 mg Q4H PRN IVP SEVERE PAIN (7-10) 08/07/25 10:00 08/11/25 10:32 DC 08/10/25 20:27 0.5 MG Hydromorphone HCl (DiLAUDid 0.5MG INJ) 0.5 mg Q6H PRN IVP SEVERE PAIN (7-10) 08/11/25 11:00 08/16/25 10:59 DC 08/15/25 16:03 0.5 MG Insulin Human Regular (humuLIN R 100 UNIT/ML 3ML) INSULIN SLIDING SCAL... ACHS SQ 07/21/25 07:30 08/20/25 07:29 08/18/25 17:31 2 UNIT Ketorolac Tromethamine (toRADol) 15 mg Q8H PRN IM MODERATE PAIN (4-6) 08/15/25 18:30 08/16/25 06:57 DC 08/16/25 00:01 15 MG Lactated Ringer's 1,000 ml @ 75 mls/hr [id number] IV 07/21/25 00:00 07/21/25 13:17 DC 07/21/25 02:57 75 MLS/HR Lactated Ringer's 1,000 ml @ 75 mls/hr [id number] IV 07/21/25 13:30 07/24/25 11:09 DC 07/24/25 09:27 75 MLS/HR Lactobacillus Rhamnosus ([facility]) 1 each DAILY20 PO 07/26/25 20:00 08/25/25 19:59 08/18/25 21:17 1 EACH Lidocaine (Lidoderm Patch 5%) 1 patch DAILY TP 07/28/25 09:00 08/27/25 08:59 08/19/25 09:19 1 PATCH Lidocaine HCl/Al Hydroxide/Mg Hydroxide/ Dicyclomine HCl 20ML OR AD ONCE PO 08/06/25 16:30 08/07/25 16:29 DC 08/06/25 16:45 20 ML Magnesium Sulfate 50 ml @ 0 mls/hr PROTOCOL PRN IV MAGNESIUM PROTOCOL 07/21/25 07:00 08/20/25 06:59 08/01/25 06:05 25 MLS/HR Methocarbamol (methoCARBamol) 500 mg BID PO 08/11/25 16:00 09/10/25 15:59 08/19/25 09:11 500 MG Metoclopramide HCl (regLAN 10MG IV) 5 mg BID IVP 08/04/25 21:00 09/03/25 20:59 08/19/25 09:18 5 MG Metronidazole/ Sodium Chloride (flaGYL) 500 mg Q8H IV 07/21/25 14:00 07/21/25 13:40 DC Morphine Sulfate (morPHINE 2MG SYG) 2 mg Q4H PRN IVP SEVERE PAIN (7-10) 07/21/25 00:30 07/21/25 13:18 DC 07/21/25 04:46 2 MG Morphine Sulfate (morPHINE 4MG SYG) 4 mg Q3H PRN IV MODERATE PAIN (4-6) 07/21/25 13:30 07/26/25 16:29 DC 07/26/25 10:51 4 MG Norepinephrine 250 ml @ 0 mls/hr PROTOCOL IV 07/20/25 23:30 08/03/25 08:27 DC 07/21/25 10:56 18.45 MLS/HR Ondansetron HCl (zoFRAN 4MG INJ) 4 mg Q4H PRN IVP NAUSEA 07/21/25 13:30 08/16/25 17:50 DC 08/16/25 10:23 4 MG Ondansetron HCl (zoFRAN 4MG INJ) 4 mg Q6H IVP 08/16/25 18:00 09/15/25 17:59 08/19/25 12:36 4 MG Ondansetron HCl (zoFRAN 4MG INJ) 4 mg Q6H PRN IV NAUSEA/VOMITING 07/21/25 00:00 07/21/25 13:18 DC Pantoprazole Sodium (PROTonix 40MG INJ) 40 mg BID IV 07/26/25 21:00 08/20/25 08:59 08/19/25 09:13 40 MG Pantoprazole Sodium (PROTonix 40MG INJ) 40 mg BID IVP 08/05/25 21:00 08/06/25 08:39 DC 08/05/25 20:25 40 MG Pantoprazole Sodium (PROTonix 40MG INJ) 40 mg DAILY IV 07/21/25 09:00 07/26/25 09:31 DC 07/26/25 08:55 40 MG Pharmacy Profile Note (Pharmacy Communication) 1 each ONCE MISC 07/21/25 15:30 07/21/25 15:16 DC Pharmacy Profile Note (Pharmacy Communication) 1 each ONCE MISC 08/16/25 16:00 08/15/25 21:12 DC Pharmacy Profile Note (Pharmacy Communication) 1 each ONCE MISC 08/06/25 16:00 08/07/25 07:07 DC Piperacillin Sod/ Tazobactam Sod 50 ml @ 200 mls/hr ONCE STAT IVPB 07/20/25 19:15 07/20/25 19:29 DC 07/20/25 20:32 200 MLS/HR Piperacillin Sod/ Tazobactam Sod (Zosyn 3.375gm+NS 50ml) 3.375 gm Q12H IV 07/21/25 00:00 07/31/25 00:00 DC 07/30/25 23:55 3.375 GM Piperacillin Sod/ Tazobactam Sod (Zosyn 3.375gm+NS 50ml) 3.375 gm Q8H IVPB 07/31/25 11:30 08/10/25 11:29 DC 08/10/25 04:05 3.375 GM Piperacillin Sod/ Tazobactam Sod (Zosyn 3.375gm+NS 50ml) 3.375 gm Q8H IVPB 08/10/25 13:00 08/20/25 12:59 08/19/25 12:36 3.375 GM Potassium Chloride 100 ml @ 100 mls/hr AD PRN IV POTASSIUM PROTOCOL 07/24/25 08:30 08/23/25 08:29 07/30/25 06:23 100 MLS/HR Potassium Chloride (K-Dur/Klor-Con 20meq) 20 meq AD PRN PO POTASSIUM PROTOCOL 07/24/25 08:30 08/23/25 08:29 07/27/25 20:33 20 MEQ Potassium Chloride (KCl 10% Elixir 20meq/15ml) 20 meq AD PRN PO POTASSIUM PROTOCOL 07/24/25 08:30 08/23/25 08:29 07/31/25 08:15 20 MEQ Psyllium Hydrophilic Mucilloid (Metamucil) 1 tbs BID PO 07/26/25 21:00 08/25/25 20:59 08/19/25 09:11 1 TBS Simethicone (Mylicon) 80 mg Q6H6 PO 07/27/25 12:00 08/26/25 11:59 08/19/25 12:36 80 MG Sodium Bicarbonate 150 meq/Sodium Chloride 1,150 ml @ 0 mls/hr Q0M IVP 07/21/25 14:00 07/26/25 09:31 DC Sodium Chloride (NS 50ml) 50 ml AD IV 07/31/25 11:30 07/31/25 11:12 DC Sodium Chloride (Normal Saline Flush) 10 ml Q8H IJ 08/09/25 11:00 09/08/25 10:59 08/19/25 10:47 10 ML Spironolactone (Aldactone 25mg) 25 mg BID PO 07/25/25 21:00 07/26/25 09:01 DC 07/26/25 08:56 25 MG Sucralfate (Carafate) 1 gm ACHS PO 07/29/25 21:00 08/28/25 20:59 08/19/25 10:46 1 GM Thiamine HCl (Vitamin B-1) 100 mg DAILY IVP 07/22/25 21:00 08/21/25 20:59 08/19/25 09:17 100 MG Thiamine HCl 100 mg/Sodium Chloride 50 ml @ 100 mls/hr Q24H IM 07/21/25 15:30 07/21/25 16:25 DC Vancomycin HCl (Vancomycin 1g/ 250ml Kit) 1 gm ONCE STAT IV 07/20/25 21:23 07/20/25 21:26 DC 07/20/25 22:06 1 GM Vasopressin 20 units/Sodium Chloride 100 ml @ 0 mls/hr PROTOCOL IV 07/21/25 00:30 08/03/25 08:27 DC 07/21/25 00:10 9 MLS/HR DIAGNOSTICS / RADIOLOGY: [ ] ASSESSMENT: Suspected Bowel Perforation/ Anastomotic Leak POA Acute cholecystitis, not POA s/p Cholecystotomy tube placement 08/02/2025 Bilious peritonitis s/p Diagnostic laparoscopy, abdominal washout, drain placement and diverting loop ileostomy creation Perisplenic and infrasplenic fluid collection with splenomegaly - suspected abscess s/p drainage with catheter placement Hyponatremia, resolved Bacterial peritonitis [ESBL Ecoli], resolved Cholelithiasis Atrophic vaginitis Hyperkalemia, resolved Iron Deficiency anemia, POA Diabetes Mellitus Type 2 POA Acute Kidney Injury POA, resolved Septic Shock POA, resolved Cirrhosis of liver POA Esophageal Varices Recent Robotic takedown of splenic flexure mobilization, robotic takedown of colovesical fistula with sigmoid colectomy and end-to-end anastomosis surgery PLAN: Bilious peritonitis status post Diagnostic laparoscopy, abdominal washout, drain placement and diverting loop ileostomy creation -Continue close monitoring of the patient -continue physical therapy -No output in CHRIS drain. Follow up with surgery regarding CHRIS drain removal. -Continue Zosyn [day 30] and fluconazole [day 30]. -Probiotics and Fibers have been added for bloating. -Continue Protonix 40mg IV BID - Continue Benjamin 5 mg q.4h p.r.n.,for pain management - As per surgery, continue methocarbamol and gabapentin. Perisplenic and infrasplenic fluid collection with splenomegaly * CT scan showed perisplenic and infrasplenic fluid collection measuring 6.0 x 6.1 x 8.9 cm, splenomegaly, with spleen measuring 15.2 cm * IR drained the perisplenic and intra splenic fluid with placement of drainage catheter. * Cultures resulted in now growth * Continue Zosyn and fluconazole * Plan to remove splenic drainage catheter after abscess fistula study Bacterial Peritonitis, resolved * Post Surgical patient with Bacterial peritonitis positive for ESBL * Culture and sensitivity shows susceptibility to Zosyn, Gentamicin and Meropenem. * Likely secondary to post-operative intraabdominal infection with risk of ongoing contamination. * Currently patient is on Zosyn (Day 30) Cholelithiasis * Patient complained of upper abdominal pain * Ultrasound abdomen showed: Cirrhotic-appearing liver * Cholelithiasis and biliary sludge with gallbladder distension and Small volume ascites. * Hida scan shows acute cholecystitis. * IR did a Fluoroscopy and ultrasound-guided placement of cholecystotomy tube and cholecystogram on 08/02/2025. * IR evaluated patient in the label fuser tender for cholecystostomy tube placement. Patient was found to have normally positioned tube with some stones for which the tube was flushed.. Small Bowel Obstruction (Resolved) * Abdominal Xray showed: Dilated small bowel loops are seen in mid abdomen * Pain management(avoid excess opioids if ileus is suspected) * Monitor for resolution vs progression of Ileus/obstruction. 07/29/25 Bowel Perforation, Dehiscence of the anastomosis - Patient had repair of colovesicular fistula with sigmoid colon resection and anastomosis on 07/09/25. - CT abdominal pelvis w/contrast done on 07/20/2025 showed Free air in the upper abdomen is seen, suggesting perforated bowel vs post surgical changes. No obstruction. - underwent Diagnostic laparoscopy, abdominal washout, drain placement and diverting loop ileostomy creation for biliary peritonitis Iron Deficiency anemia * Hemoglobin today is 9.6. * Anemia panel has been ordered. Results showed Iron 24L, %sat 16.3 and TIBC 147L. 07/30/25 * Received 2 doses of Iron sucrose (venofer) so far Recommend trending Hgb and transfuse as needed to goal Hgb >7 Acute Kidney Injury, Resolved * Creatinine improved * Initial FeNA is 0.1 %, probably secondary to dehydration and NSAIDs overuse. * initial Urine sodium is < 13 and urine creatinine is 132.17. * Avoid nephrotoxic agents, eg. NSAIDS. * Weight patient daily. * Monitor intake and output. Supportive measures - Multimodal pain management - Duloxetine started. 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 -Monitor Vitals and perform morning labs regularly Continue GI prophylaxis with Pantop Continue DVT prophylaxis with SCDs, we will avoid heparin due to history of allergies to porcine ATTESTATION BY PHYSICIAN I have seen and examined the patient. I reviewed the documentation, medical decision making, and treatment plan as noted by the resident physician above. I agree with the findings and plan of care. AYAKA BARR MD, HARSHAVARDHA MD Aug 19, 2025 13:21
--- NOTE | 2025-08-19 14:30 | NUR ---
IR PROCEDURE CALLED AND SPOKE TO BECKY [facility]SUNA. INFORMED THAT RADIOLOGIST WILL NOT BE AVAILABLE FOR PROCEDURE UNTIL SATURDAY.
--- NOTE | 2025-08-19 14:59 | PN ---
This is a 55-year-old female status post laparoscopic washout and loop ileostomy Interval history: This 55-year-old female seen in her room resting Patient tolerating diet Patient is slightly more appetite but still eating very little Patient refusing protein drinks TPN continues to be weaned down Ostomy functioning properly Labs and vitals stable Currently pending imaging to remove left-sided percutaneous drain by Radiology Physical exam General: Awake alert and oriented Heart: Regular rate and rhythm} Lungs: Clear to auscultation no distress Abdomen: [Soft, nontender, nondistended Cholecystostomy tube in place Percutaneous drain and left upper quadrant with minimal output Assessment : This is a 55-year-old female status post laparoscopic washout and loop ileostomy Plan: At this point in time we will await removal of percutaneous drain for potential discharge this weekend Case management to be consulted for assistance finding possible nursing facility for continued rehabilitation Continue to wean down TPN Continue with current wound care Patient is reminded of the importance of compliance with protein intake for recovery Surgical team to follow patient closely and Dr. Gann to be updated on patient's status Surgical case has been discussed with my supervising physician in the above plan was formulated and agreed upon We appreciate the hospitalist team for us to participate in patient's care. Greater than 45 minutes of time spent patient, reviewing chart, working on documentation Vitals/Labs Vital Signs Date Time Temp Pulse Resp B/P (MAP) Pulse Ox O2 Delivery O2 Flow Rate FiO2 08/19/25 12:00 98.2 83 18 101/71 95 Room Air 08/18/25 20:49 0 21 Laboratory Tests 08/19/25 03:30 Medications Current Medications Sodium Chloride 1,000 ml @ 0 mls/hr ONCE ONCE IV; Start 07/20/25 at 18:30; Stop 07/20/25 at 18:31; Status DC Piperacillin Sod/ Tazobactam Sod 50 ml @ 200 mls/hr ONCE STAT IVPB Last administered on 07/20/25at 20:32; Start 07/20/25 at 19:15; Stop 07/20/25 at 19:29; Status DC Sodium Chloride 2,109 ml @ 703 mls/hr ONCE ONCE IV Last administered on 07/20/25at 20:28; Start 07/20/25 at 19:30; Stop 07/20/25 at 22:29; Status DC Iohexol 75 ml STK-MED ONCE IV; Start 07/20/25 at 20:31; Stop 07/20/25 at 20:31; Status DC Vancomycin HCl 1 gm ONCE STAT IV Last administered on 07/20/25at 22:06; Start 07/20/25 at 21:23; Stop 07/20/25 at 21:26; Status DC Morphine Sulfate 4 mg ONCE ONCE IVP Last administered on 07/20/25at 23:15; Start 07/20/25 at 23:30; Stop 07/20/25 at 23:31; Status DC Ondansetron HCl 4 mg ONCE ONCE IVP Last administered on 07/20/25at 23:14; Start 07/20/25 at 23:30; Stop 07/20/25 at 23:31; Status DC Norepinephrine 250 ml @ 0 mls/hr PROTOCOL IV Last administered on 07/21/25at 10:56; Start 07/20/25 at 23:30; Stop 08/03/25 at 08:27; Status DC Piperacillin Sod/ Tazobactam Sod 3.375 gm Q12H IV Last administered on 07/30/25at 23:55; Start 07/21/25 at 00:00; Stop 07/31/25 at 00:00; Status DC Acetaminophen 650 mg Q6H PRN RC; Start 07/21/25 at 00:00; Stop 07/27/25 at 16:22; Status DC Pantoprazole Sodium 40 mg DAILY IV Last administered on 07/26/25at 08:55; Start 07/21/25 at 09:00; Stop 07/26/25 at 09:31; Status DC Ondansetron HCl 4 mg Q6H PRN IV; Start 07/21/25 at 00:00; Stop 07/21/25 at 13:18; Status DC Morphine Sulfate 2 mg Q4H PRN IVP Last administered on 07/21/25at 04:46; Start 07/21/25 at 00:30; Stop 07/21/25 at 13:18; Status DC Lactated Ringer's 1,000 ml @ 75 mls/hr [id number] IV Last administered on 07/21/25at 02:57; Start 07/21/25 at 00:00; Stop 07/21/25 at 13:17; Status DC Insulin Human Regular INSULIN SLIDING SCAL... ACHS SQ Last administered on 08/18/25at 17:31; Start 07/21/25 at 07:30; Stop 08/20/25 at 07:29 Vasopressin 20 units/Sodium Chloride 100 ml @ 0 mls/hr PROTOCOL IV Last administered on 07/21/25at 00:10; Start 07/21/25 at 00:30; Stop 08/03/25 at 08:27; Status DC Vasopressin 20 units STK-MED ONCE .ROUTE; Start 07/21/25 at 00:10; Stop 07/21/25 at 00:11; Status DC Magnesium Sulfate 50 ml @ 0 mls/hr PROTOCOL PRN IV Last administered on 08/01/25at 06:05; Start 07/21/25 at 07:00; Stop 08/20/25 at 06:59 Acetaminophen 100 ml @ As Directed STK-MED ONCE .ROUTE; Start 07/21/25 at 09:42; Stop 07/21/25 at 09:42; Status DC Famotidine 20 mg STK-MED ONCE IV; Start 07/21/25 at 09:42; Stop 07/21/25 at 09:42; Status DC Albumin Human 500 ml @ As Directed STK-MED ONCE IV; Start 07/21/25 at 09:45; Stop 07/21/25 at 09:45; Status DC Phenylephrine HCl 10 mg STK-MED ONCE IV; Start 07/21/25 at 09:48; Stop 07/21/25 at 09:48; Status DC Dexamethasone Sodium Phosphate 10 mg STK-MED ONCE .ROUTE; Start 07/21/25 at 09:52; Stop 07/21/25 at 09:52; Status DC Ondansetron HCl 4 mg STK-MED ONCE .ROUTE; Start 07/21/25 at 09:52; Stop 07/21/25 at 09:52; Status DC Lidocaine HCl 100 mg STK-MED ONCE .ROUTE; Start 07/21/25 at 09:52; Stop 07/21/25 at 09:52; Status DC Succinylcholine Chloride 200 mg STK-MED ONCE .ROUTE; Start 07/21/25 at 09:53; Stop 07/21/25 at 09:53; Status DC Glycopyrrolate 1 mg STK-MED ONCE .ROUTE; Start 07/21/25 at 09:53; Stop 07/21/25 at 09:53; Status DC Fentanyl Citrate 100 mcg STK-MED ONCE .ROUTE; Start 07/21/25 at 09:54; Stop 07/21/25 at 09:54; Status DC Propofol 200 mg STK-MED ONCE IV; Start 07/21/25 at 09:54; Stop 07/21/25 at 09:54; Status DC Neostigmine Methylsulfate 10 mg STK-MED ONCE IV; Start 07/21/25 at 09:54; Stop 07/21/25 at 09:54; Status DC Rocuronium [place] 50 mg STK-MED ONCE .ROUTE; Start 07/21/25 at 09:54; Stop 07/21/25 at 09:54; Status DC Ketamine HCl 50 mg STK-MED ONCE .ROUTE; Start 07/21/25 at 09:55; Stop 07/21/25 at 09:56; Status DC Epinephrine HCl 1 mg STK-MED ONCE .ROUTE; Start 07/21/25 at 10:03; Stop 07/21/25 at 10:03; Status DC Midazolam HCl 2 mg STK-MED ONCE .ROUTE; Start 07/21/25 at 10:05; Stop 07/21/25 at 10:05; Status DC Indocyanine Green 25 mg STK-MED ONCE IJ; Start 07/21/25 at 10:49; Stop 07/21/25 at 10:49; Status DC Ephedrine Sulfate 50 mg STK-MED ONCE .ROUTE; Start 07/21/25 at 11:17; Stop 07/21/25 at 11:17; Status DC Bupivacaine HCl 5 mg STK-MED ONCE .ROUTE Last administered on 07/21/25at 12:14; Start 07/21/25 at 11:49; Stop 07/21/25 at 11:49; Status DC Sodium Bicarbonate 200 ml @ As Directed STK-MED ONCE .ROUTE; Start 07/21/25 at 12:19; Stop 07/21/25 at 12:19; Status DC Fentanyl Citrate 100 mcg STK-MED ONCE .ROUTE; Start 07/21/25 at 12:23; Stop 07/21/25 at 12:23; Status DC Phytonadione 10 mg STK-MED ONCE .ROUTE; Start 07/21/25 at 13:05; Stop 07/21/25 at 13:05; Status DC Lactated Ringer's 1,000 ml @ 75 mls/hr [id number] IV Last administered on 07/24/25at 09:27; Start 07/21/25 at 13:30; Stop 07/24/25 at 11:09; Status DC Morphine Sulfate 4 mg Q3H PRN IV Last administered on 07/26/25at 10:51; Start 07/21/25 at 13:30; Stop 07/26/25 at 16:29; Status DC Ondansetron HCl 4 mg Q4H PRN IVP Last administered on 08/16/25at 10:23; Start 07/21/25 at 13:30; Stop 08/16/25 at 17:50; Status DC Fentanyl Citrate 100 mcg STK-MED ONCE .ROUTE; Start 07/21/25 at 13:26; Stop 07/21/25 at 13:26; Status DC Sodium Bicarbonate 150 meq/Sodium Chloride 1,150 ml @ 0 mls/hr Q0M IVP; Start 07/21/25 at 14:00; Stop 07/26/25 at 09:31; Status DC Sodium Bicarbonate 100 meq ONCE ONCE IV; Start 07/21/25 at 14:00; Stop 07/21/25 at 14:23; Status DC Metronidazole/ Sodium Chloride 500 mg Q8H IV; Start 07/21/25 at 14:00; Stop 07/21/25 at 13:40; Status DC Fluconazole/ Sodium Chloride 200 mg Q24H IVPB Last administered on 08/18/25at 21:18; Start 07/21/25 at 21:00; Stop 08/20/25 at 20:59 Pharmacy Profile Note 1 each ONCE MISC; Start 07/21/25 at 15:30; Stop 07/21/25 at 15:16; Status DC Thiamine HCl 100 mg/Sodium Chloride 50 ml @ 100 mls/hr Q24H IM; Start 07/21/25 at 15:30; Stop 07/21/25 at 16:25; Status DC Sodium Bicarbonate 100 meq ONCE ONCE IV Last administered on 07/21/25at 16:42; Start 07/21/25 at 16:30; Stop 07/21/25 at 16:31; Status DC Thiamine HCl 100 mg DAILY IVP Last administered on 08/19/25at 09:17; Start 07/22/25 at 21:00; Stop 08/21/25 at 20:59 Diatrizoate Meglum/ Diatrizoate Sod 30 ml STK-MED ONCE .ROUTE; Start 07/23/25 at 15:13; Stop 07/23/25 at 15:13; Status DC Potassium Chloride 100 ml @ 100 mls/hr AD PRN IV Last administered on 07/30/25at 06:23; Start 07/24/25 at 08:30; Stop 08/23/25 at 08:29 Potassium Chloride 20 meq AD PRN PO Last administered on 07/31/25at 08:15; Start 07/24/25 at 08:30; Stop 08/23/25 at 08:29 Potassium Chloride 20 meq AD PRN PO Last administered on 07/27/25at 20:33; Start 07/24/25 at 08:30; Stop 08/23/25 at 08:29 Hydromorphone HCl 0.5 mg Q4H PRN IVP Last administered on 07/29/25at 08:22; Start 07/24/25 at 10:00; Stop 07/29/25 at 09:59; Status DC Spironolactone 25 mg BID PO Last administered on 07/26/25at 08:56; Start 07/25/25 at 21:00; Stop 07/26/25 at 09:01; Status DC Albumin Human 100 ml @ 0 mls/hr ONCE ONCE IV Last administered on 07/25/25at 17:05; Start 07/25/25 at 10:30; Stop 07/25/25 at 10:31; Status DC Albumin Human 100 ml @ 0 mls/hr ONCE IV Last administered on 07/25/25at 13:43; Start 07/25/25 at 12:00; Stop 07/26/25 at 11:59; Status DC Cyclobenzaprine HCl 5 mg TID PO Last administered on 07/26/25at 14:19; Start 07/25/25 at 14:00; Stop 07/26/25 at 14:00; Status DC Furosemide 20 mg DAILY PO Last administered on 08/02/25at 09:42; Start 07/25/25 at 11:00; Stop 08/02/25 at 11:53; Status DC Pantoprazole Sodium 40 mg BID IV Last administered on 08/19/25at 09:13; Start 07/26/25 at 21:00; Stop 08/20/25 at 08:59 Psyllium Hydrophilic Mucilloid 1 tbs BID PO Last administered on 08/19/25at 09:11; Start 07/26/25 at 21:00; Stop 08/25/25 at 20:59 Lactobacillus Rhamnosus 1 each DAILY20 PO Last administered on 08/18/25at 21:17; Start 07/26/25 at 20:00; Stop 08/25/25 at 19:59 Iron Sucrose 200 mg ONCE ONCE IV Last administered on 07/26/25at 14:19; Start 07/26/25 at 14:00; Stop 07/26/25 at 14:01; Status DC Lidocaine 1 patch DAILY TP Last administered on 08/19/25at 09:19; Start 07/28/25 at 09:00; Stop 08/27/25 at 08:59 Simethicone 80 mg Q6H6 PO Last administered on 08/19/25at 12:36; Start 07/27/25 at 12:00; Stop 08/26/25 at 11:59 Acetaminophen 500 mg Q6H6 PRN PO; Start 07/27/25 at 16:30; Stop 08/07/25 at 12:15; Status DC Lidocaine 1 patch ONCE ONCE TP Last administered on 07/27/25at 19:25; Start 07/27/25 at 19:30; Stop 07/27/25 at 19:31; Status DC Albumin Human 50 ml @ 0 mls/hr AD ONCE IV Last administered on 07/28/25at 17:44; Start 07/28/25 at 15:30; Stop 07/28/25 at 15:31; Status DC Albumin Human 100 ml @ 0 mls/hr AD ONCE IV Last administered on 07/29/25at 14:26; Start 07/29/25 at 12:30; Stop 07/29/25 at 12:31; Status DC Hydromorphone HCl 0.5 mg Q4H PRN IVP Last administered on 08/03/25at 13:09; Start 07/29/25 at 13:30; Stop 08/03/25 at 13:29; Status DC Gabapentin 100 mg TID PO Last administered on 08/01/25at 20:14; Start 07/29/25 at 14:00; Stop 08/02/25 at 09:21; Status DC Clotrimazole 1 GM BID TP Last administered on 08/19/25at 10:52; Start 07/29/25 at 21:00; Stop 08/28/25 at 20:59 Sucralfate 1 gm ACHS PO Last administered on 08/19/25at 10:46; Start 07/29/25 at 21:00; Stop 08/28/25 at 20:59 Piperacillin Sod/ Tazobactam Sod 3.375 gm Q8H IVPB Last administered on 08/10/25at 04:05; Start 07/31/25 at 11:30; Stop 08/10/25 at 11:29; Status DC Sodium Chloride 50 ml AD IV; Start 07/31/25 at 11:30; Stop 07/31/25 at 11:12; Status DC Iron Sucrose 300 mg/Sodium Chloride 250 ml @ 83 mls/hr ONCE ONCE IV Last administered on 07/31/25at 13:36; Start 07/31/25 at 12:00; Stop 07/31/25 at 15:00; Status DC Fentanyl 25 mcg Q72H TD; Start 07/31/25 at 14:30; Stop 07/31/25 at 14:44; Status DC Acetaminophen/ Hydrocodone Bitart 1 tab Q4H PRN PO Last administered on 08/05/25at 14:57; Start 07/31/25 at 16:30; Stop 08/05/25 at 16:29; Status DC Chromium/Copper/ Manganese/Zinc 3 ml/Multivitamins/ Minerals 10 ml/ Amino Acids/ Electrolytes/ Dextrose 2,000 ml @ 80 mls/hr ONCE ONCE IV Last administered on 08/01/25at 20:25; Start 08/01/25 at 20:00; Stop 08/02/25 at 20:59; Status DC Albumin Human 100 ml @ 0 mls/hr AD ONCE IV Last administered on 08/02/25at 09:41; Start 08/02/25 at 09:30; Stop 08/02/25 at 09:33; Status DC Lidocaine HCl 20 ml STK-MED ONCE .ROUTE; Start 08/02/25 at 11:24; Stop 08/02/25 at 11:24; Status DC Iohexol 50 ml STK-MED ONCE IV; Start 08/02/25 at 11:24; Stop 08/02/25 at 11:25; Status DC Estrogens Conjugated 1 appl ONCE ONCE VG; Start 08/02/25 at 12:00; Stop 08/02/25 at 12:01; Status DC Fentanyl Citrate 100 mcg STK-MED ONCE .ROUTE; Start 08/02/25 at 11:53; Stop 08/02/25 at 11:53; Status DC Midazolam HCl 2 mg STK-MED ONCE .ROUTE; Start 08/02/25 at 11:54; Stop 08/02/25 at 11:54; Status DC Midazolam HCl 2 mg STK-MED ONCE .ROUTE; Start 08/02/25 at 12:15; Stop 08/02/25 at 12:16; Status DC Multivitamins/ Minerals 10 ml/ Chromium/Copper/ Manganese/Zinc 3 ml/Amino Acids/ Electrolytes/ Dextrose 2,000 ml @ 80 mls/hr ONCE ONCE IV Last administered on 08/02/25at 21:08; Start 08/02/25 at 20:00; Stop 08/03/25 at 18:39; Status DC Estrogens Conjugated 1 appl ONCE ONCE VG Last administered on 08/02/25at 18:47; Start 08/02/25 at 18:30; Stop 08/02/25 at 18:31; Status DC Albumin Human 50 ml @ 0 mls/hr Q12H IV; Start 08/02/25 at 18:30; Stop 08/02/25 at 20:04; Status DC Albumin Human 50 ml @ 100 mls/hr Q12H IV Last administered on 08/05/25at 10:12; Start 08/02/25 at 21:30; Stop 08/05/25 at 09:59; Status DC Hydromorphone HCl 0.5 mg Q4H PRN IVP Last administered on 08/07/25at 05:09; Start 08/03/25 at 18:00; Stop 08/07/25 at 10:03; Status DC Chromium/Copper/ Manganese/Zinc 3 ml/Multivitamins/ Minerals 10 ml/ Amino Acids/ Electrolytes/ Dextrose 2,000 ml @ 80 mls/hr ONCE ONCE IV Last administered on 08/03/25at 21:51; Start 08/03/25 at 20:00; Stop 08/04/25 at 12:47; Status DC Chromium/Copper/ Manganese/Zinc 3 ml/Multivitamins/ Minerals 10 ml/ Amino Acids/ Electrolytes/ Dextrose 2,000 ml @ 80 mls/hr ONCE ONCE IV Last administered on 08/04/25at 21:54; Start 08/04/25 at 21:00; Stop 08/05/25 at 21:59; Status DC Metoclopramide HCl 5 mg BID IVP Last administered on 08/19/25at 09:18; Start 08/04/25 at 21:00; Stop 09/03/25 at 20:59 Iohexol 75 ml STK-MED ONCE IV; Start 08/04/25 at 14:27; Stop 08/04/25 at 14:26; Status DC Propofol 200 mg STK-MED ONCE IV; Start 08/05/25 at 12:54; Stop 08/05/25 at 12:54; Status DC Lidocaine HCl 100 mg STK-MED ONCE .ROUTE; Start 08/05/25 at 12:54; Stop 08/05/25 at 12:55; Status DC Pantoprazole Sodium 40 mg BID IVP Last administered on 08/05/25at 20:25; Start 08/05/25 at 21:00; Stop 08/06/25 at 08:39; Status DC Multivitamins/ Minerals 10 ml/ Amino Acids/ Electrolytes/ Dextrose 2,000 ml @ 80 mls/hr ONCE ONCE IV Last administered on 08/06/25at 04:53; Start 08/06/25 at 05:00; Stop 08/07/25 at 05:59; Status DC Pharmacy Profile Note 1 each ONCE MISC; Start 08/06/25 at 16:00; Stop 08/07/25 at 07:07; Status DC Lidocaine HCl/Al Hydroxide/Mg Hydroxide/ Dicyclomine HCl 20ML OR AD ONCE PO Last administered on 08/06/25at 16:45; Start 08/06/25 at 16:30; Stop 08/07/25 at 16:29; Status DC Multivitamins/ Minerals 10 ml/ Amino Acids/ Electrolytes/ Dextrose 2,000 ml @ 80 mls/hr ONCE ONCE IV; Start 08/07/25 at 07:00; Stop 08/07/25 at 06:32; Status DC Multivitamins/ Minerals 10 ml/ Chromium/Copper/ Manganese/Zinc 3 ml/Amino Acids/ Electrolytes/ Dextrose 2,000 ml @ 80 mls/hr ONCE ONCE IV Last administered on 08/07/25at 06:41; Start 08/07/25 at 07:00; Stop 08/08/25 at 04:36; Status DC Acetaminophen 500 mg Q6H6 PRN PO; Start 08/07/25 at 10:00; Stop 08/07/25 at 10:03; Status DC Hydromorphone HCl 0.5 mg Q4H PRN IVP Last administered on 08/10/25at 20:27; Start 08/07/25 at 10:00; Stop 08/11/25 at 10:32; Status DC Acetaminophen/ Hydrocodone Bitart 1 tab Q4H PRN PO Last administered on 08/12/25at 00:46; Start 08/07/25 at 12:30; Stop 08/12/25 at 12:29; Status DC Chromium/Copper/ Manganese/Zinc 3 ml/Amino Acids/ Electrolytes/ Dextrose 2,000 ml @ 80 mls/hr ONCE ONCE IV; Start 08/08/25 at 05:00; Stop 08/08/25 at 04:59; Status DC Chromium/Copper/ Manganese/Zinc 3 ml/Amino Acids/ Electrolytes/ Dextrose 2,000 ml @ 80 mls/hr ONCE ONCE IV Last administered on 08/08/25at 05:51; Start 08/08/25 at 07:00; Stop 08/09/25 at 05:18; Status DC Chromium/Copper/ Manganese/Zinc 3 ml/Amino Acids/ Electrolytes/ Dextrose 2,000 ml @ 80 mls/hr ONCE ONCE IV Last administered on 08/09/25at 06:11; Start 08/09/25 at 07:00; Stop 08/10/25 at 07:59; Status DC Lidocaine HCl 50 ml STK-MED ONCE .ROUTE; Start 08/09/25 at 09:59; Stop 08/09/25 at 09:59; Status DC Iohexol 50 ml STK-MED ONCE IV; Start 08/09/25 at 09:59; Stop 08/09/25 at 09:59; Status DC Sodium Chloride 10 ml Q8H IJ Last administered on 08/19/25at 10:47; Start 08/09/25 at 11:00; Stop 09/08/25 at 10:59 Fentanyl 12 mcg Q72H TD; Start 08/09/25 at 13:00; Stop 08/09/25 at 15:19; Status DC Fentanyl Citrate 100 mcg STK-MED ONCE .ROUTE Last administered on 08/09/25 16:15; Start 08/09/25 at 13:17; Stop 08/09/25 at 13:17; Status DC Midazolam HCl 2 mg STK-MED ONCE .ROUTE Last administered on 08/09/25 16:15; Start 08/09/25 at 13:17; Stop 08/09/25 at 13:18; Status DC Fentanyl 12 mcg Q72H TD Last administered on 08/09/25at 15:38; Start 08/09/25 at 15:30; Stop 08/11/25 at 10:32; Status DC Chromium/Copper/ Manganese/Zinc 3 ml/Multivitamins/ Minerals 10 ml/ Amino Acids/ Electrolytes/ Dextrose 2,000 ml @ 80 mls/hr ONCE ONCE IV Last administered on 08/10/25at 09:54; Start 08/10/25 at 08:30; Stop 08/11/25 at 09:29; Status DC Piperacillin Sod/ Tazobactam Sod 3.375 gm Q8H IVPB Last administered on 08/19/25at 12:36; Start 08/10/25 at 13:00; Stop 08/20/25 at 12:59 Fentanyl 25 mcg Q72H TD; Start 08/12/25 at 15:30; Stop 08/12/25 at 16:00; Status DC Hydromorphone HCl 0.5 mg Q6H PRN IVP Last administered on 08/15/25at 16:03; Start 08/11/25 at 11:00; Stop 08/16/25 at 10:59; Status DC Methocarbamol 500 mg BID PO Last administered on 08/19/25at 09:11; Start 08/11/25 at 16:00; Stop 09/10/25 at 15:59 Gabapentin 100 mg TID PO Last administered on 08/19/25at 14:46; Start 08/11/25 at 21:00; Stop 09/10/25 at 20:59 Multivitamins/ Minerals 10 ml/ Chromium/Copper/ Manganese/Zinc 3 ml/Amino Acids/ Electrolytes/ Dextrose 2,000 ml @ 80 mls/hr ONCE ONCE IV Last administered on 08/12/25at 22:38; Start 08/12/25 at 20:00; Stop 08/13/25 at 11:49; Status DC Fat Emulsion Intravenous 250 ml @ 42 mls/hr [id number] IV Last administered on 08/18/25at 09:57; Start 08/13/25 at 10:00; Stop 08/19/25 at 10:44; Status DC Fentanyl 25 mcg Q72H TD Last administered on 08/16/25at 00:02; Start 08/12/25 at 21:00; Stop 08/17/25 at 20:59; Status DC Acetaminophen/ Hydrocodone Bitart 1 tab Q4H PRN PO Last administered on 08/17/25at 10:17; Start 08/12/25 at 16:30; Stop 08/17/25 at 16:29; Status DC Home Med HS TD; Start 08/12/25 at 21:00; Stop 09/11/25 at 20:59 Multivitamins/ Minerals 10 ml/ Chromium/Copper/ Manganese/Zinc 3 ml/Amino Acids/ Electrolytes/ Dextrose 2,000 ml @ 80 mls/hr ONCE ONCE IV Last administered on 08/13/25at 20:15; Start 08/13/25 at 20:00; Stop 08/14/25 at 11:29; Status DC Multivitamins/ Minerals 10 ml/ Amino Acids/ Electrolytes/ Dextrose 2,000 ml @ 80 mls/hr ONCE ONCE IV Last administered on 08/14/25at 21:37; Start 08/14/25 at 20:00; Stop 08/15/25 at 20:59; Status DC Duloxetine HCl 30 mg BID PO Last administered on 08/19/25at 09:10; Start 08/15/25 at 21:00; Stop 09/14/25 at 20:59 Ketorolac Tromethamine 15 mg Q8H PRN IM Last administered on 08/16/25at 00:01; Start 08/15/25 at 18:30; Stop 08/16/25 at 06:57; Status DC Pharmacy Profile Note 1 each ONCE MISC; Start 08/16/25 at 16:00; Stop 08/15/25 at 21:12; Status DC Multivitamins/ Minerals 10 ml/ Amino Acids/ Electrolytes/ Dextrose 2,000 ml @ 80 mls/hr ONCE ONCE IV Last administered on 08/15/25at 23:25; Start 08/15/25 at 21:00; Stop 08/16/25 at 13:13; Status DC Amino Acids/ Electrolytes/ Dextrose 2,000 ml @ 80 mls/hr ONCE ONCE IV; Start 08/16/25 at 13:30; Stop 08/17/25 at 01:21; Status DC Ondansetron HCl 4 mg Q6H IVP Last administered on 08/19/25at 12:36; Start 08/16/25 at 18:00; Stop 09/15/25 at 17:59 Amino Acids/ Electrolytes/ Dextrose 2,000 ml @ 40 mls/hr ONCE ONCE IV Last administered on 08/17/25at 01:40; Start 08/17/25 at 01:30; Stop 08/19/25 at 10:44; Status DC Acetaminophen/ Hydrocodone Bitart 1 tab Q6H PRN PO Last administered on 08/19/25at 05:59; Start 08/17/25 at 21:30; Stop 08/22/25 at 21:29 BENEDICTO OBRIEN Jr. PAC Aug 19, 2025 14:59
--- NOTE | 2025-08-19 17:51 | PN ---
INFECTIOUS DISEASE PROGRESS NOTE Date of Service: Aug 19, 2025 SUBJECTIVE: Patient was seen and examined at bedside in room 432. PPN has been discontinued and patient tolerated diet well. No fever, temperature is 98.1. Currently continues on Zosyn and fluconazole. Per report plan is to possibly discharge tomorrow. PHYSICAL EXAM EYES: Anicteric. Pupils equal and reactive. HENT: No oral thrush seen, moist Oral mucosa. NECK: Supple, no JVD or thyromegaly. LUNGS: Good air entry. No rales, no rhonchi. CARDIOVASCULAR: S1, S2 regular. No murmur heard. ABDOMEN: Soft, non tender, bowel sounds present. Left Perisplenic abscess percutaneous drainage catheter. Right ileostomy. Right cholecystostomy tube. CENTRAL NERVOUS SYSTEM: Awake, alert, oriented x 3. SKIN: No rashes, no swelling. LYMPHATICS: No peripheral lymphadenopathy. MUSCULOSKELETAL: No joint swelling, erythema or tenderness. EXTREMITIES: No cyanosis or clubbing. BACK: No deformity, no pressure ulcer. GENITOURINARY: No dysuria or hematuria. Vital Sign (Last 12 Hours) 08/19/25 08/19/25 08:00 12:00 Temp 98.1 98.2 Pulse 84 83 Resp 17 18 B/P (MAP) 110/72 101/71 Pulse Ox 95 95 O2 Delivery Room Air Room Air Intake & Output (last 24hrs) 08/18/25 08/18/25 08/19/25 15:00 23:00 07:00 Intake Total 190.0 ml 1190.0 ml 533.0 ml Output Total 1290 ml 440 ml Balance 190.0 ml -100.0 ml 93.0 ml LABS: Laboratory: Test 08/19/25 16:35 08/19/25 03:30 08/18/25 03:20 Range/Units Whole Blood Glucose 103 70-110 MG/DL White Blood Count 5.0 4.8-10.8 K/uL Red Blood Count 3.28 L 4.00-5.50 MIL/uL Hemoglobin 9.8 L 12.0-16.0 g/dL Hematocrit 30.9 L 36-48 % Mean Corpuscular Volume 94.2 79-99 fL Mean Corpuscular Hemoglobin 29.9 27.0-33.0 pg Mean Corpuscular Hemoglobin Concent 31.7 L 32.0-36.0 g/dL Red Cell Distribution Width 17.9 H 11.0-15.5 % Platelet Count 239 130-400 K/uL Mean Platelet Volume 9.9 7.5-10.5 fL Immature Granulocyte % (Auto) 2.4 H 0-1 % Neutrophils (%) (Auto) 65.6 40.0-77.0 % Lymphocytes (%) (Auto) 16.3 L 21.0-51.0 % Monocytes (%) (Auto) 10.7 3.0-13.0 % Eosinophils (%) (Auto) 4.0 0.0-8.0 % Basophils (%) (Auto) 1.0 0.0-5.0 % Neutrophils # (Auto) 3.3 1.8-7.7 K/uL Lymphocytes # (Auto) 0.8 L 1.0-4.8 K/uL Monocytes # (Auto) 0.5 0.1-1.0 K/uL Eosinophils # (Auto) 0.20 0.00-0.70 K/uL Basophils # (Auto) 0.05 0.00-0.20 K/uL Absolute Immature Granulocyte (auto 0.12 0-1 K/uL Nucleated Red Blood Cells 0.0 0.0-0.19 % Sodium Level 129 L 136-145 mmol/L Potassium Level 5.0 3.5-5.1 mmol/L Chloride Level 98 L 101-111 mmol/L Carbon Dioxide Level 24 21-32 mmol/L Blood Urea Nitrogen 11 7-18 mg/dL Creatinine 0.8 0.5-1.0 mg/dL Glomerular Filtration Rate Calc 86 >90 mL/min Random Glucose 169 H 70-105 mg/dL Total Calcium 8.9 8.5-10.1 mg/dL Serum Osmolality 271 L 278-305 mOsm/kg Uric Acid 1.9 L 2.6-7.2 mg/dL Phosphorus Level 2.9 2.5-4.9 mg/dL Magnesium Level 1.80 1.80-2.40 mg/dL Total Bilirubin 0.5 0.2-1.0 mg/dL Aspartate Amino Transf (AST/SGOT) 51 H 10-37 U/L Alanine Aminotransferase (ALT/SGPT) 22 12-78 U/L Alkaline Phosphatase 178 H 50-136 U/L Total Protein 7.6 6.0-8.3 g/dL Albumin 2.6 L 3.5-5.0 g/dL Thyroid Stimulating Hormone (TSH) 0.34 #L 0.36-3.74 uIU/mL ASSESSMENT: Acute cholecystitis, s/p cholecystostomy tube placement on 08/02/2025. Concern for cholecystostomy tube dislodgement status post cholecystogram with findings of multiple gallstones on 08/09/2025. Perisplenic abscess, s/p CT-guided drainage placement on 08/09/2025. Persistent abdominal pain, s/p EGD with findings acute gastritis. Septic shock, resolved. Possible continues bacterial peritonitis. Generalized peritonitis with ESBL and E coli infection. Infection with multidrug resistant organism. Hypoalbuminemia, improving. Suspected bowel perforation, s/p diagnostic laparoscopy, abdominal washout, ileostomy creation and CHRIS drain placement on 07/21/2025, s/p CHRIS drain removal. Diabetes mellitus. Recent colovesical fistula repair with sigmoid colon resection and anastomosis on 07/09/2025 PLAN: Continue Zosyn. Continue fluconazole. Continue pain management. Continue GI prophylaxis. Continue antidiabetics. Continue nutritional support. This case was reviewed and discussed with my supervising physician Dr. Roger and the above assessment and plan was formulated and agreed upon. ATTESTATION BY PHYSICIAN I have seen and examined the patient. I reviewed the documentation, medical decision making, and treatment plan as noted by the mid-level provider above. I agree with the findings and plan of care. AMIE ROGER MD, [facility] Aug 19, 2025 17:51
[2025-08-20] VITALS: BP 109/72; PULSE 81; RESP 20; TEMP 98.3
[2025-08-20 04:00] VITALS: BP 117/69; PULSE 87; RESP 20; TEMP 97.8
--- NOTE | 2025-08-20 05:25 | PN ---
NEPHROLOGY NOTE SUBJECTIVE: The patient has been seen several times. This patient has multiple medical problems including hyponatremia now. The patient has abdominal abscess. The patient has underlying being initiated. Drains are being placed. The patient has been treated for acute cholecystitis, cholecystostomy tube placement. The patient does have history of perisplenic abscess, previous CT-guided drainage. The patient has gastritis, previous septic shock, and multiple comorbidities. No other respiratory findings, antifungal . No fevers, chills, or rigors. No cough, expectoration, hemoptysis. No other associated findings. No other aggravating or relieving factors. PHYSICAL EXAMINATION: GENERAL: Pale. No other distress. VITAL SIGNS: Blood pressure has been 110/72, pulse 84, respiratory rate is 17. HEENT: Head is atraumatic, normocephalic. Pupils are round and reactive to light. Sclerae are anicteric. Conjunctivae not pale. Oral mucosa is not dry. NECK: Without masses or bruits. Thyroid is palpable. Neck has no bruits. CHEST: Shows equals thoracic percussion. LABORATORY DATA: We have reviewed available labs in detail. Hemoglobin is 9.8, hematocrit is 30. Low sodium of 129. IMAGING STUDIES: Imaging studies are reviewed. PROBLEMS: 1. Hyponatremia. 2. Previous multiple surgeries. 3. Drain placement in a patient who has been treated for possible . 4. The patient has loop ileostomy. PLAN: Maintain hydration. Oral diet to be given. Free water should be restricted because of hyponatremia. jail placement being considered, increasing physical activity. The patient's TPN is being weaned and will follow up on renal function, electrolytes, anemia, and overall status condition. Remain guarded. Seen several times. TID: [id number] RECEIPT: [id number]
[2025-08-20 08:00] VITALS: O2SAT 95
[2025-08-20 08:09] VITALS: BP 113/73; PULSE 86; RESP 16; TEMP 98.2
[2025-08-20 08:44] LABS: NUCLEATED RED BLOOD CELLS 0.0 % (0.0-0.19); PLATELET COUNT (AUTO) 238.0 K/uL (130-400); RED BLOOD CELL COUNT(AUTO) 3.75 MIL/uL (4.00-5.50); RED CELL DISTRIBUTION WIDTH 17.8 % (11.0-15.5); WHITE BLOOD COUNT (AUTO) 5.1 K/uL (4.8-10.8)
[2025-08-20 08:58] LABS: CREATININE 1.0 mg/dL (0.5-1.0); GLOMERULAR FILTR. RATE CALC 66.0 mL/min (>90); GLUCOSE,RANDOM 99.0 mg/dL (70-105); SODIUM SERUM 128.0 mmol/L (136-145); UREA NITROGEN, BLOOD 12.0 mg/dL (7-18)
--- NOTE | 2025-08-20 13:12 | PN ---
[facility] PROGRESS NOTE Date of Service: Aug 20, 2025 Time of Service: 13:11 SUBJECTIVE: Ms. Gray is a 55-year-old female that was seen and examined today on 07/20/2025. Patient reports that she came to the emergency department with a chief complaint of abdominal pain. Onset was 07/09/2025. Location is all four quadrants. Duration is constant. Character is described as pressure and " like I have a lot of gas trapped. " there was no alleviating factors. There was no aggravating factors. Patient reports associated abdominal swelling. 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 After the discharge she was taking pain medications and her condition started worsening after few days. She is in constant follow up with Dr Gann. Today in the emergency department WBCs 21.2, left shift neutrophils 85.5%, BUN 26, creatinine 3.1, GFR 17, lactic acid 8.0, no urinalysis has been collected or sent to lab, CT of abdomen and pelvis showed of free air in the abdomen which could be a suspected bowel perforation versus postsurgical changes, moderate ascites, fissure post surgical changes. Chest x-ray shows right pleural effusion. Additionally patient had a heart rate of 125, respirations 26, together with leukocytosis and lactic acidosis patient met clinical sepsis criteria additionally patient's blood pressure dropped to 85/50 mmHg requiring vasopressor support therefore meeting criteria for septic shock. Patient will be admitted to the intensive care unit. Emergency room physician spoke with patient's surgeon, Dr. Gann who requested patient be admitted under hospitalist service and she will follow this case along. 07/21/25 Patient was evaluated at the bedside. She was accompanied by her daughter. She is oriented to the time, place and person. She complained of abdominal pain in all the quadrants. She hasn't had bowel movement since Saturday and also is unable to pass flatus at this time. She has guarding, rigidity and tenderness all over the abdomen, showing the signs of peritonitis. She was seen by Dr Gann this m and is planned to be taken to OR this afternoon. Dueñas catheter is in place, as she wasn't able to pass the urine. There is no fever, chills and any other signs of infection. 07/22/25 Patient was evaluated at the bedside. She was accompanied by her daughter. She is oriented to the time, place and person. She underwent Diagnostic laparoscopy, abdominal washout, drain placement and diverting loop ileostomy creation, The procedure revealed Bilious peritonitis, 2 mm perforation of the colonic anastomosis. She is hemodynamically stable with Blood pressure of 110/73 and HR of 83. Currently she complains of abdominal pain which is getting better than yesterday, its 3-4/10 intensity. There is no rigidity. She is anxious about the outcomes and had discussion regarding her current clinical status and lab parameters. There is no fever, chills and any other signs of infection. 07/23/25 Patient was evaluated at the bedside. She was accompanied by her daughter. She is oriented to the time, place and person. She status post diagnostic laparoscopy, abdominal washout, drain placement and diverting loop ileostomy creation. Currently she complains of abdominal pain which is 5/10 intensity. She also complaints of mild lower back pain There is no fever, chills and any other signs of infection. She has CHRIS drain in-situ with clear fluid along with colostomy bag. She is currently tolerating clear liquid diet. 07/24/2025 Patient is seen and examined at the bedside. Vitals blood pressure ranging in 100s/50s, pulse rate 50s, SpO2 greater than 95% on room air. She mentions about experiencing pressure-like discomfort on the right side of the abdomen and pain when she tries to eat. No acute events last night. She denies fever, chills, nausea, vomiting, chest pain. CHRIS output approximately 100cc/hr, serosanguineous fluid. Ileostomy bag in place. She is tolerating clear liquid diet without any nausea/vomiting. Labs hemoglobin 9.8, BUN 38, creatinine improved from 1.6-1.1. 07/25/2025 Patient is seen and examined at the bedside. She complains of abdominal pain which is 7/10 in intensity. No acute events last night. She denies fever, chills, nausea, vomiting, chest pain. CHRIS output approximately 100cc/hr, serosanguineous fluid. Ileostomy bag in place. The patient has been started on spironolactone 25mg BID and Lasix 20 mg once daily. There is high output from CHRIS but it is clear serous, most likely related to her ascites from her history of liver cirrhosis. She is tolerating clear liquid diet without any nausea/vomiting. 07/26/2025 Patient is seen and examined at the bedside. She complains of abdominal pain which remains constant. No acute events last night. She denies fever, chills, nausea, vomiting, chest pain. Patient is status post with a CHRIS drain. The drain has been collecting the serosanguineous fluid secondary to ascites. She has been tolerating liquid diet and her diet has been advanced to soft diet. She still h as bloating for which probiotics and fibers has been recommended. Hemoglobin has gradually trended down to 9.2 and was given IV Venofer. Patient to get up and ambulate and work with physical therapy. 07/27/2025 Patient is seen and examined at the bedside. She complains of abdominal pain which is 6/10 in intensity. No acute events last night. She denies fever, chills, nausea, vomiting, chest pain. Patient is unable to tolerate the soft diet, hence she is currently receiving the liquid diets. The CHRIS drain output is still high and there was small amount of drainage observed in the right ileostomy. 07/28/2025 Patient is seen and examined at the bedside. She complains of abdominal pain which is 9/10 in intensity. No acute events last night. She denies fever, chills, nausea, vomiting, chest pain. Patient reported pain after eating but no nausea or vomiting. WBC is gradually trending up from 8.3-7.3-11.1-11.8. She had lidocaine patch placed this morning. She was started on simethicone 80 mg yesterday. Pertinent she is currently receiving Dilaudid 0.5 mg. Abdominal ultrasound has been ordered for further assessment. 07/29/2025 Patient is seen and examined at the bedside. She continues to complain of severe abdominal pain, rated 9/10 in intensity, unchanged from prior. She is currently receiving Dilaudid 0.5 mg for pain. She reports discomfort related to Dueñas catheterization. She denies fever, chest pain, nausea or vomiting at this time. No acute events were reported overnight. Blood pressure noted today is noted to be 98/54 mm Hg which is slightly low. Per surgery team, stoma is likely to be removed today. Hemoglobin has trended down from 9.7 g/dl to 9.0 g/dl. 07/30/2025 Patient is seen and examined at the bedside. She continues to complain of severe abdominal pain. Her abdominal distention has slightly improved. Dueñas's catheter was removed due to persistent discomfort. We will continue with scheduled removal of the ascites fluid and from CHRIS bulb. Ultrasound of abdomen was concerning for cholelithiasis with biliary sludge and gallbladder distention. HIDA scan was performed today. If consistent with cholecystitis patient will need cholecystostomy tube placement. 07/31/2025 Patient is seen and examined at the bedside. She was accompanied by her daughter. She continues to complain of severe abdominal pain. She is currently on Dilaudid 0.5mg Q4H PRN, which relieves the symptoms for 2-3 hours, after that she develops same level of pain and discomfort again. Currently awaiting the HIDA scan results. Her sodium level is 133 and albumin level is trending downwards from 2.3 to 2.1. Her Iron panel results showed: Iron 20L, TIBC 147L and %sat 16.3L. For her continuos pain she is started on Fentanyl 25mcg. CHRIS drain culture has beens sent. Based on the results of HIDA scan, CT chest will be planned. 08/01/2025: Patient is seen and examined this morning at bedside. She was accompanied by her daughter. The patient complains of severe abdominal pain. She is currently being managed with [place], and Dilaudid for breakthrough pain. HIDA scan results are back, and show acute cholecystitis. Surgery has been made aware of the results. IR has been consulted for cholecystostomy tube placement. The patient will be started on PPN, as recommended by general surgery. The patient follows with Dr. Sol outpatient for her liver cirrhosis. The patients daughter would like her rv mechanic Dr. Sol to be involved in the patients care, and be updated with her status. 08/02/2025: Patient is seen and evaluated in the room 432. She was accompanied by her daughter. She complains of severe abdominal pain. She also complained of bleeding through her vagina, pink tinged urine. Her vitals are in the normal range. Her labs are in the normal range except for Hb is 8.6, Na is 135, K is 5.2, BUN is 4, Glucose is 150, CRP is 103.90. She went for placement of cholecystectomy tube by IR. We did a pelvic exam and ordered a vaginal estrogen cream and urinalysis. Also for her hyperkalemia we checked the potassium again and its 4.1. So we will repeat the labs tomorrow. We ordered a dose of albumin for her. 08/03/2025: Patient is seen and evaluated in the room 432. She has mild abdominal pain today. Her pain improved after the placement for cholecystotomy tube. Her vitals are in the normal range. Her labs are normal except for hemoglobin 8.2, glucose 156, CRP 89.8. Her aerobic and anaerobic culture of drain showed no growth. Gastroenterology saw the patient and they recommended 25 grams of 25% IV albumin q12H for 3 days. Her bleeding through the vagina decreased. The drainage through the left abdomen is 100ml, right abdomen is 20ml, left anterior abdomen 5ml. 08/04/2025: Patient is seen and evaluated in the room 432. She has abdominal pain today. Her vitals are in the normal range. Her labs are normal except for Hb is 8, CRP is 72.10, glucose is 130. Aerobic and anaerobic drain culture showed no growth. She is not able to tolerate her food. The drainage through the left abdomen is 100ml, right abdomen is 20ml, left anterior abdomen 5ml. Gastroenterology is planning to do EGD tomorrow. Surgery wanted to do a CT abdomen and pelvis with IV contrast. CT scan showed perisplenic and infrasplenic fluid collection measuring 6.0 x 6.1 x 8.9 cm, splenomegaly, with spleen measuring 15.2 cm, cholecystostomy tube in situ with decompressed gallbladder, abdominal drain in situ with tip in the pelvis. We ordered T.bilirubin and we will monitor the output from colostomy tube. We are also planning to add metoclopramide. 08/05/2025: Patient is seen and evaluated in the room 432. She has abdominal pain today. Her abdomen is tender to touch and warm. Her vital signs are in the normal range except for BP is 117/45. Her labs are normal except for Hb is 8.2, sodium is 135, creatinine is 0.3, CRP is 60.9 The drain output from left abdomen is 40ml, left anterior abdomen 0ml, right abdomen 0ml. Her saturation is 100% on 10L of O2. Her labs are in the normal range except for Hb is 8.2, HCT is 25.9, sodium is 135, glucose is 107, CRP is 60.90. She underwent endoscopy today and they did biopsy from 3 sites. GI said that they will consult radiology to check whether CHRIS drain and cholecystostomy tube are in place. General surgery will consult IR to evaluate perisplenic fluid collection for potential aspiration. 08/06/2025: Patient is seen and evaluated in the room 432. She has abdominal pain today. Her abdomen is tender to touch and warm. Her vital signs are in the normal range except for 97/63. Her labs are in the normal range except for Hb is 8.1, sodium is 135, blood glucose is 151, CRP 53.60. We are waiting for IR consult for evaluation and for potential aspiration of perisplenic fluid. The drain output from right abdomen is 20ml. 08/07/2025: Patient is seen and evaluated in the room 432. She has abdominal pain today. Her abdomen is tender to touch and warm. Her vital signs are in the normal range except for blood pressure which is 102/60. Her labs are in the normal range except for Hb is 8.5, WBC is 4.4, RDW is 17.3, sodium is 134, glucose is 147. We are waiting for IR consult for evaluation and for potential aspiration of perisplenic fluid. The drain output from right abdomen is 20ml. The [employer] told me that she eats her food after taking her pain medications. Nurse is planning to start full liquid diet for lunch. 08/08/2025: She was evaluated at the bedside this morning. She is AAO x3. she complained of epigastric pain which gets worse with food . Moderate tenderness was appreciated on the epigastric region. Her blood pressure is 99/46, pulse 80. Remarkable lab is for WBC of 4.8, hemoglobin 9, CRP 43.90. She is scheduled with IR for perisplenic fluid aspiration and checking the position of cholecystostomy tube. She is on full liquid diet. She is on Zosyn, fluconazole. Surgery, GI, ID on the board. Rest of the plan as discussed below. 08/09/2025: Patient went to cleaner laboratory equipment for PROCEDURE. As per nurse, her cholecystostomy tube was already correctly positioned but had some stones so tube was flushed. She complained of epigastric and pelvic pain. For pain control, fentanyl patch has been ordered. She is pending perisplenic fluid aspiration by IR. Her blood pressure is 98/58, pulse 90. She is currently NPO. She is on Zosyn, fluconazole. Surgery, GI, ID on the board. Rest of the plan as discussed below. 08/10/2025: Patient was seen and examined at bedside. She underwent CT GUIDED PERISPLENIC PIGTAIL DRAINAGE CATHETER PLACEMENT with Aspiration of perisplenic fluid. There has been 25 ml sanguinous drainage so far in the catheter. Her cholecystostomy tube has had 30 mL drainage in the past 24 hours. She is currently on clear liquid diet tolerating it well. She continues to complain pain in her abdomen without any peritoneal signs. She was started on fentanyl patch yesterday. Gram stain and body fluid culture were sent after drainage of perisplenic abscess which showed RARE GRAM POSITIVE COCCI after 1 day. Patient is currently on Zosyn. 08/11/2025: Patient was seen and examined. She continues to complain of abdominal pain. Her multimodal pain medications were adjusted with fentanyl increased to 25mcg and Dilaudid frequency changed from q.4h to q.6h. She is currently on clear liquid diet and complains of pain while eating. She continues on Zosyn and fluconazole. We are waiting for culture results after drainage of perisplenic abscess. Incision site is clean, dry and intact. Will continue to follow recommendations from ID, General surgery and Nephrology. 08/12/2025: Patient was seen and examined at bedside. She complained of pain in right upper abdomen as well as left lower quadrant, along the drainage catheter insertion. No peritoneal signs present. She is currently on multimodal pain management. Today, we are advancing her to full liquid diet. Culture results have been negative so far. Incision site is clean, dry and intact. Will continue to follow recommendations from ID, General surgery and Nephrology. 08/13/2025: Patient was seen and examined at bedside. She complained of pain in right upper quadrant and left quadrant of abdomen along the line of drainage catheter placement. Comparatively, her pain is better than yesterday and patient states that she feels pain in between pain medication. No peritoneal signs are present. We will follow up with General surgery for CHRIS drain removal as there has been 0 to minimal drainage in the past few days. Patient is currently on full liquid diet. 08/14/2025 Patient is seen and examined at the bedside. She complains of intermittent pain in the left upper quadrant near the drainage catheter site which is well controlled with pain medications. No acute events last night. Vitals blood pressure in 90s/50s. Urine output 1.4 L, stool 1.2 L [ileostomy bag], 23 mL from left abdominal drain, 20 mL from right abdominal drain, 15 mL from RUQ drain over the last 24 hours. She denies fever, chills, chest pain/shortness of breath, tingling/numbness/pain in bilateral lower extremities. She is able to tolerate GI soft/bland diet without any nausea/vomiting. Labs WBC 4.1, hemoglobin stable at 8.9. We will continue parenteral nutrition. 08/15/2025: Patient was seen and examined this morning at bedside. The patient reports continued abdominal pain, worse on her left upper quadrant. The patient states that when she takes her pain medication, the pain resolves. However, without the pain medication, the patient reports that the pain remains prominent. Duloxetine will be started for its dual benefit in managing the abdominal pain and addressing potential underlying mood symptoms that may be amplifying the patients pain perception. I educated the patient on importance of eating her GI soft diet. We will continue to follow ID and surgery recommendations. 08/16/2025: Patient was seen and examined this morning at bedside in room 432. Patient admits to have continued nausea since yesterday and is unable to tolerate any food. Her CHRIS drain was removed yesterday and still continues to have left upper quadrant and right upper quadrant drains. Patient is discontinued from Dilaudid and is currently managed with p.r.n. [place] q.4. Dr. Gann recommended to reduce the dose of TPN to 40 mL to assess if patient's appetite improves. They also changed metoclopramide to scheduled q.12. We will follow the surgery and ID recommendations. 08/17/2025: Patient was examined at bedside in room 432. Patient reports improved nausea and is able to tolerate fruits however still does not have appetite for regular meals. Patient reports mild abdominal tenderness however denies fever, nausea, vomiting. Patient has no abdominal rigidity. Patient has abdominal drains have minimal drainage and shows no signs of infection. We encouraged the patient to eat GI soft diet as tolerated. We will continue to follow recommendations from ID and surgery. 08/18/2025: Patient was examined at bedside in room 432. Patient reports improved nausea and is able to tolerate her diet however only completes 25-50% of her meals. Her TPN rate was reduced to 20 mL/hour. Patient has mild abdominal tenderness at the right cholecystostomy drain site and left upper quadrant drain, without signs of infection. Patient has ileostomy bag was replaced yesterday for leakage and shows cleared fluid. We encouraged the patient to complete her meals. Surgical team is planning to discharge the patient by the end of the week and we will follow their recommendations closely. 08/19/2025: Patient was examined at bedside in room 432. Patient reports improved nausea and is able to tolerate her diet, however does not complete her meals. Her TPN and fat emulsions will be stopped today and is encouraged to increase dietary intake and protein with Ensure drinks. The surgical team plans to remove her left upper quadrant drain after performing an abscess fistula study. In the meantime case management has been consulted for possible placement in a long-term versus home health care. Otherwise patient remained afebrile, mild abdominal pain around the drainage catheter sites, no guarding or rigidity. We will follow the surgical team recommendations closely and anticipate her discharge by the end of the week. 08/20/2025: Patient was examined at bedside in room 432. Patient reported improved nausea and is able to tolerate her diet. Her TPN has been stopped and his encouraged to increase her dietary intake and protein with Ensure drinks. An abscess fistula study has been ordered by Surgical team however as IR is not available till Saturday, it will be done at a later time. Her abdomen is soft, nontender and is there is no guarding or rigidity. Multimodal pain management is being continued but continues to taper off from pain medication. Patient is ambulating in the hallways with support. We will follow surgical team recommendations. REVIEW OF SYSTEMS CONSTITUTIONAL: No fever, chills, or night sweats. NEUROLOGICAL: Denies headache, sensory and motor deficit. CARDIOVASCULAR: Denies any exertional angina, dyspnea on exertion, palpitations. PULMONARY: Denies any shortness of breath, cough, phlegm/sputum, hemoptysis, pleuritic chest pain. GASTROINTESTINAL: Denies nausea. Denies vomiting. No peritoneal signs observed. Mild abdominal discomfort at the drain sites. GENITOURINARY: Denies frequency, urgency, nocturia, hematuria or incontinence. PHYSICAL EXAM GENERAL APPEARANCE: The patient is alert, awake and oriented and bedbound. NEUROLOGICAL: No sensory and motor deficits. CHEST: Normal chest expansion. LUNGS: Normal Vesicular breath sound. Absence of any rales, rhonchi or any wheezing. CARDIOVASCULAR: Regular. S1 and S2 normal. No appreciable rubs, murmurs or gallops. ABDOMEN: Abdomen is soft and slightly tender. Ileostomy creation. Cholecystostomy and left upper abdominal quadrant catheter in place. Absence of guarding, rigidity and rebound tenderness GENITOURINARY: No suprapubic tenderness. No costovertebral angle tenderness. Vital Signs (last 8hr) Date Time Temp Pulse Resp B/P (MAP) Pulse Ox O2 Delivery O2 Flow Rate FiO2 08/20/25 08:09 98.2 86 16 113/73 Room Air LABS: Laboratory: Test 08/20/25 11:12 08/20/25 08:39 08/19/25 03:30 Range/Units Whole Blood Glucose 134 H 70-110 MG/DL White Blood Count 5.1 4.8-10.8 K/uL Red Blood Count 3.75 L 4.00-5.50 MIL/uL Hemoglobin 11.3 L 12.0-16.0 g/dL Hematocrit 34.1 L 36-48 % Mean Corpuscular Volume 90.9 79-99 fL Mean Corpuscular Hemoglobin 30.1 27.0-33.0 pg Mean Corpuscular Hemoglobin Concent 33.1 32.0-36.0 g/dL Red Cell Distribution Width 17.8 H 11.0-15.5 % Platelet Count 238 130-400 K/uL Mean Platelet Volume 9.4 7.5-10.5 fL Nucleated Red Blood Cells 0.0 0.0-0.19 % Sodium Level 128 L 136-145 mmol/L Potassium Level 4.7 3.5-5.1 mmol/L Chloride Level 99 L 101-111 mmol/L Carbon Dioxide Level 21 21-32 mmol/L Blood Urea Nitrogen 12 7-18 mg/dL Creatinine 1.0 0.5-1.0 mg/dL Glomerular Filtration Rate Calc 66 >90 mL/min Random Glucose 99 70-105 mg/dL Total Calcium 9.1 8.5-10.1 mg/dL Immature Granulocyte % (Auto) 2.4 H 0-1 % Neutrophils (%) (Auto) 65.6 40.0-77.0 % Lymphocytes (%) (Auto) 16.3 L 21.0-51.0 % Monocytes (%) (Auto) 10.7 3.0-13.0 % Eosinophils (%) (Auto) 4.0 0.0-8.0 % Basophils (%) (Auto) 1.0 0.0-5.0 % Neutrophils # (Auto) 3.3 1.8-7.7 K/uL Lymphocytes # (Auto) 0.8 L 1.0-4.8 K/uL Monocytes # (Auto) 0.5 0.1-1.0 K/uL Eosinophils # (Auto) 0.20 0.00-0.70 K/uL Basophils # (Auto) 0.05 0.00-0.20 K/uL Absolute Immature Granulocyte (auto 0.12 0-1 K/uL Current Medications Medications (Trade) Dose Ordered Sig/Gregory Route PRN Reason Start Time Stop Time Status Last Admin Dose Admin Acetaminophen (TYLenol 500MG TAB) 500 mg Q6H6 PRN PO MILD PAIN (1-3) 07/27/25 16:30 08/07/25 12:15 DC Acetaminophen (TYLenol 500MG TAB) 500 mg Q6H6 PRN PO MILD PAIN (1-3) 08/07/25 10:00 08/07/25 10:03 DC Acetaminophen (TYLenol 650MG SUPPOSITORY) 650 mg Q6H PRN RC MILD PAIN (1-3) 07/21/25 00:00 07/27/25 16:22 DC Acetaminophen/ Hydrocodone Bitart (NORco 5/325MG) 1 tab Q4H PRN PO MODERATE PAIN (4-6) 07/31/25 16:30 08/05/25 16:29 DC 08/05/25 14:57 1 TAB Acetaminophen/ Hydrocodone Bitart (NORco 5/325MG) 1 tab Q4H PRN PO MODERATE PAIN (4-6) 08/07/25 12:30 08/12/25 12:29 DC 08/12/25 00:46 1 TAB Acetaminophen/ Hydrocodone Bitart (NORco 5/325MG) 1 tab Q4H PRN PO MODERATE PAIN (4-6) 08/12/25 16:30 08/17/25 16:29 DC 08/17/25 10:17 1 TAB Acetaminophen/ Hydrocodone Bitart (NORco 5/325MG) 1 tab Q6H PRN PO MODERATE PAIN (4-6) 08/17/25 21:30 08/22/25 21:29 08/20/25 06:14 1 TAB Albumin Human 50 ml @ 100 mls/hr Q12H IV 08/02/25 21:30 08/05/25 09:59 DC 08/05/25 10:12 100 MLS/HR Albumin Human 50 ml @ 0 mls/hr Q12H IV 08/02/25 18:30 08/02/25 20:04 DC Albumin Human 100 ml @ 0 mls/hr ONCE IV 07/25/25 12:00 07/26/25 11:59 DC 07/25/25 13:43 100 MLS/HR Clotrimazole (Lotrimin) 1 GM BID TP 07/29/25 21:00 08/28/25 20:59 08/20/25 09:26 1 GM Cyclobenzaprine HCl (Cyclobenzaprine HCl) 5 mg TID PO 07/25/25 14:00 07/26/25 14:00 DC 07/26/25 14:19 5 MG Duloxetine HCl (CymbALTA 30 mg CAP) 30 mg BID PO 08/15/25 21:00 09/14/25 20:59 08/20/25 09:23 30 MG Fat Emulsion Intravenous 250 ml @ 42 mls/hr DAILY10 IV 08/13/25 10:00 08/19/25 10:44 DC 08/18/25 09:57 42 MLS/HR Fentanyl (DURAgesic 12 MCG/HR PATCH) 12 mcg Q72H TD 08/09/25 13:00 08/09/25 15:19 DC Fentanyl (DURAgesic 12 MCG/HR PATCH) 12 mcg Q72H TD 08/09/25 15:30 08/11/25 10:32 DC 08/09/25 15:38 12 MCG Fentanyl (DURAgesic 25 MCG/HR PATCH) 25 mcg Q72H TD 07/31/25 14:30 07/31/25 14:44 DC Fentanyl (DURAgesic 25 MCG/HR PATCH) 25 mcg Q72H TD 08/12/25 15:30 08/12/25 16:00 DC Fentanyl (DURAgesic 25 MCG/HR PATCH) 25 mcg Q72H TD 08/12/25 21:00 08/17/25 20:59 DC 08/16/25 00:02 25 MCG Fluconazole/ Sodium Chloride (DiFLUCan 200 MG/ NS 100 ML) 200 mg Q24H IVPB 07/21/25 21:00 08/20/25 20:59 08/19/25 20:18 200 MG Furosemide (LASix 20MG TAB) 20 mg DAILY PO 07/25/25 11:00 08/02/25 11:53 DC 08/02/25 09:42 20 MG Gabapentin (NEURontin 100 mg CAP) 100 mg TID PO 07/29/25 14:00 08/02/25 09:21 DC 08/01/25 20:14 100 MG Gabapentin (NEURontin 100 mg CAP) 100 mg TID PO 08/11/25 21:00 09/10/25 20:59 08/20/25 12:59 100 MG Home Med (Compound Po Narcotic) HS TD 08/12/25 21:00 09/11/25 20:59 Hydromorphone HCl (DiLAUDid 0.5MG INJ) 0.5 mg Q4H PRN IVP SEVERE PAIN (7-10) 07/24/25 10:00 07/29/25 09:59 DC 07/29/25 08:22 0.5 MG Hydromorphone HCl (DiLAUDid 0.5MG INJ) 0.5 mg Q4H PRN IVP SEVERE PAIN (7-10) 07/29/25 13:30 08/03/25 13:29 DC 08/03/25 13:09 0.5 MG Hydromorphone HCl (DiLAUDid 0.5MG INJ) 0.5 mg Q4H PRN IVP SEVERE PAIN (7-10) 08/03/25 18:00 08/07/25 10:03 DC 08/07/25 05:09 0.5 MG Hydromorphone HCl (DiLAUDid 0.5MG INJ) 0.5 mg Q4H PRN IVP SEVERE PAIN (7-10) 08/07/25 10:00 08/11/25 10:32 DC 08/10/25 20:27 0.5 MG Hydromorphone HCl (DiLAUDid 0.5MG INJ) 0.5 mg Q6H PRN IVP SEVERE PAIN (7-10) 08/11/25 11:00 08/16/25 10:59 DC 08/15/25 16:03 0.5 MG Insulin Human Regular (humuLIN R 100 UNIT/ML 3ML) INSULIN SLIDING SCAL... ACHS SQ 07/21/25 07:30 08/20/25 07:29 DC 08/18/25 17:31 2 UNIT Ketorolac Tromethamine (toRADol) 15 mg Q8H PRN IM MODERATE PAIN (4-6) 08/15/25 18:30 08/16/25 06:57 DC 08/16/25 00:01 15 MG Lactated Ringer's 1,000 ml @ 75 mls/hr [id number] IV 07/21/25 00:00 07/21/25 13:17 DC 07/21/25 02:57 75 MLS/HR Lactated Ringer's 1,000 ml @ 75 mls/hr [id number] IV 07/21/25 13:30 07/24/25 11:09 DC 07/24/25 09:27 75 MLS/HR Lactobacillus Rhamnosus ([facility] [employer]) 1 each DAILY20 PO 07/26/25 20:00 08/25/25 19:59 08/19/25 20:16 1 EACH Lidocaine (Lidoderm Patch 5%) 1 patch DAILY TP 07/28/25 09:00 08/27/25 08:59 08/20/25 09:26 1 PATCH Lidocaine HCl/Al Hydroxide/Mg Hydroxide/ Dicyclomine HCl 20ML OR AD ONCE PO 08/06/25 16:30 08/07/25 16:29 DC 08/06/25 16:45 20 ML Magnesium Sulfate 50 ml @ 0 mls/hr PROTOCOL PRN IV MAGNESIUM PROTOCOL 07/21/25 07:00 08/20/25 06:59 DC 08/01/25 06:05 25 MLS/HR Methocarbamol (methoCARBamol) 500 mg BID PO 08/11/25 16:00 09/10/25 15:59 08/20/25 09:24 500 MG Metoclopramide HCl (regLAN 10MG IV) 5 mg BID IVP 08/04/25 21:00 09/03/25 20:59 08/20/25 09:25 5 MG Metronidazole/ Sodium Chloride (flaGYL) 500 mg Q8H IV 07/21/25 14:00 07/21/25 13:40 DC Morphine Sulfate (morPHINE 2MG SYG) 2 mg Q4H PRN IVP SEVERE PAIN (7-10) 07/21/25 00:30 07/21/25 13:18 DC 07/21/25 04:46 2 MG Morphine Sulfate (morPHINE 4MG SYG) 4 mg Q3H PRN IV MODERATE PAIN (4-6) 07/21/25 13:30 07/26/25 16:29 DC 07/26/25 10:51 4 MG Norepinephrine 250 ml @ 0 mls/hr PROTOCOL IV 07/20/25 23:30 08/03/25 08:27 DC 07/21/25 10:56 18.45 MLS/HR Ondansetron HCl (zoFRAN 4MG INJ) 4 mg Q4H PRN IVP NAUSEA 07/21/25 13:30 08/16/25 17:50 DC 08/16/25 10:23 4 MG Ondansetron HCl (zoFRAN 4MG INJ) 4 mg Q6H IVP 08/16/25 18:00 09/15/25 17:59 08/20/25 12:59 4 MG Ondansetron HCl (zoFRAN 4MG INJ) 4 mg Q6H PRN IV NAUSEA/VOMITING 07/21/25 00:00 07/21/25 13:18 DC Pantoprazole Sodium (PROTonix 40MG INJ) 40 mg BID IV 07/26/25 21:00 08/20/25 08:59 DC 08/19/25 20:16 40 MG Pantoprazole Sodium (PROTonix 40MG INJ) 40 mg BID IVP 08/05/25 21:00 08/06/25 08:39 DC 08/05/25 20:25 40 MG Pantoprazole Sodium (PROTonix 40MG INJ) 40 mg DAILY IV 07/21/25 09:00 07/26/25 09:31 DC 07/26/25 08:55 40 MG Pharmacy Profile Note (Pharmacy Communication) 1 each ONCE MISC 07/21/25 15:30 07/21/25 15:16 DC Pharmacy Profile Note (Pharmacy Communication) 1 each ONCE MISC 08/16/25 16:00 08/15/25 21:12 DC Pharmacy Profile Note (Pharmacy Communication) 1 each ONCE MISC 08/06/25 16:00 08/07/25 07:07 DC Piperacillin Sod/ Tazobactam Sod 50 ml @ 200 mls/hr ONCE STAT IVPB 07/20/25 19:15 07/20/25 19:29 DC 07/20/25 20:32 200 MLS/HR Piperacillin Sod/ Tazobactam Sod (Zosyn 3.375gm+NS 50ml) 3.375 gm Q12H IV 07/21/25 00:00 07/31/25 00:00 DC 07/30/25 23:55 3.375 GM Piperacillin Sod/ Tazobactam Sod (Zosyn 3.375gm+NS 50ml) 3.375 gm Q8H IVPB 07/31/25 11:30 08/10/25 11:29 DC 08/10/25 04:05 3.375 GM Piperacillin Sod/ Tazobactam Sod (Zosyn 3.375gm+NS 50ml) 3.375 gm Q8H IVPB 08/10/25 13:00 08/20/25 12:59 DC 08/20/25 04:32 3.375 GM Potassium Chloride 100 ml @ 100 mls/hr AD PRN IV POTASSIUM PROTOCOL 07/24/25 08:30 08/23/25 08:29 07/30/25 06:23 100 MLS/HR Potassium Chloride (K-Dur/Klor-Con 20meq) 20 meq AD PRN PO POTASSIUM PROTOCOL 07/24/25 08:30 08/23/25 08:29 07/27/25 20:33 20 MEQ Potassium Chloride (KCl 10% Elixir 20meq/15ml) 20 meq AD PRN PO POTASSIUM PROTOCOL 07/24/25 08:30 08/23/25 08:29 07/31/25 08:15 20 MEQ Psyllium Hydrophilic Mucilloid (Metamucil) 1 tbs BID PO 07/26/25 21:00 08/25/25 20:59 08/20/25 09:25 1 TBS Simethicone (Mylicon) 80 mg Q6H6 PO 07/27/25 12:00 08/26/25 11:59 08/20/25 13:00 80 MG Sodium Bicarbonate 150 meq/Sodium Chloride 1,150 ml @ 0 mls/hr Q0M IVP 07/21/25 14:00 07/26/25 09:31 DC Sodium Chloride (NS 50ml) 50 ml AD IV 07/31/25 11:30 07/31/25 11:12 DC Sodium Chloride (Normal Saline Flush) 10 ml Q8H IJ 08/09/25 11:00 09/08/25 10:59 08/20/25 11:00 10 ML Spironolactone (Aldactone 25mg) 25 mg BID PO 07/25/25 21:00 07/26/25 09:01 DC 07/26/25 08:56 25 MG Sucralfate (Carafate) 1 gm ACHS PO 07/29/25 21:00 08/28/25 20:59 08/20/25 13:00 1 GM Thiamine HCl (Vitamin B-1) 100 mg DAILY IVP 07/22/25 21:00 08/21/25 20:59 08/20/25 09:24 100 MG Thiamine HCl 100 mg/Sodium Chloride 50 ml @ 100 mls/hr Q24H IM 07/21/25 15:30 07/21/25 16:25 DC Vancomycin HCl (Vancomycin 1g/ 250ml Kit) 1 gm ONCE STAT IV 07/20/25 21:23 07/20/25 21:26 DC 07/20/25 22:06 1 GM Vasopressin 20 units/Sodium Chloride 100 ml @ 0 mls/hr PROTOCOL IV 07/21/25 00:30 08/03/25 08:27 DC 07/21/25 00:10 9 MLS/HR DIAGNOSTICS / RADIOLOGY: [ ] ASSESSMENT: Suspected Bowel Perforation/ Anastomotic Leak POA Acute cholecystitis, not POA s/p Cholecystotomy tube placement 08/02/2025 Bilious peritonitis s/p Diagnostic laparoscopy, abdominal washout, drain placement and diverting loop ileostomy creation Perisplenic and infrasplenic fluid collection with splenomegaly - suspected abscess s/p drainage with catheter placement Hyponatremia, resolved Bacterial peritonitis [ESBL Ecoli], resolved Cholelithiasis Atrophic vaginitis Hyperkalemia, resolved Iron Deficiency anemia, POA Diabetes Mellitus Type 2 POA Acute Kidney Injury POA, resolved Septic Shock POA, resolved Cirrhosis of liver POA Esophageal Varices Recent Robotic takedown of splenic flexure mobilization, robotic takedown of colovesical fistula with sigmoid colectomy and end-to-end anastomosis surgery PLAN: Bilious peritonitis status post Diagnostic laparoscopy, abdominal washout, drain placement and diverting loop ileostomy creation -Continue close monitoring of the patient -continue physical therapy -No output in CHRIS drain. Follow up with surgery regarding CHRIS drain removal. -Continue Zosyn [day 31] and fluconazole [day 31]. -Probiotics and Fibers have been added for bloating. -Continue Protonix 40mg IV BID - Continue [place] 5 mg q.4h p.r.n.,for pain management - As per surgery, continue methocarbamol and gabapentin. Perisplenic and infrasplenic fluid collection with splenomegaly * CT scan showed perisplenic and infrasplenic fluid collection measuring 6.0 x 6.1 x 8.9 cm, splenomegaly, with spleen measuring 15.2 cm * IR drained the perisplenic and intra splenic fluid with placement of drainage catheter. * Cultures resulted in now growth * Continue Zosyn and fluconazole * Plan to remove splenic drainage catheter after abscess fistula study Bacterial Peritonitis, resolved * Post Surgical patient with Bacterial peritonitis positive for ESBL * Culture and sensitivity shows susceptibility to Zosyn, Gentamicin and Meropenem. * Likely secondary to post-operative intraabdominal infection with risk of ongoing contamination. * Currently patient is on Zosyn (Day 31) Cholelithiasis * Patient complained of upper abdominal pain * Ultrasound abdomen showed: Cirrhotic-appearing liver * Cholelithiasis and biliary sludge with gallbladder distension and Small volume ascites. * Hida scan shows acute cholecystitis. * IR did a Fluoroscopy and ultrasound-guided placement of cholecystotomy tube and cholecystogram on 08/02/2025. * IR evaluated patient in the cleaner laboratory equipment for cholecystostomy tube placement. Patient was found to have normally positioned tube with some stones for which the tube was flushed.. Small Bowel Obstruction (Resolved) * Abdominal Xray showed: Dilated small bowel loops are seen in mid abdomen * Pain management(avoid excess opioids if ileus is suspected) * Monitor for resolution vs progression of Ileus/obstruction. 07/29/25 Bowel Perforation, Dehiscence of the anastomosis - Patient had repair of colovesicular fistula with sigmoid colon resection and anastomosis on 07/09/25. - CT abdominal pelvis w/contrast done on 07/20/2025 showed Free air in the upper abdomen is seen, suggesting perforated bowel vs post surgical changes. No obstruction. - underwent Diagnostic laparoscopy, abdominal washout, drain placement and div erting loop ileostomy creation for biliary peritonitis Iron Deficiency anemia * Hemoglobin today is 9.6. * Anemia panel has been ordered. Results showed Iron 24L, %sat 16.3 and TIBC 147L. 07/30/25 * Received 2 doses of Iron sucrose (venofer) so far Recommend trending Hgb and transfuse as needed to goal Hgb >7 Acute Kidney Injury, Resolved * Creatinine improved * Initial FeNA is 0.1 %, probably secondary to dehydration and NSAIDs overuse. * initial Urine sodium is < 13 and urine creatinine is 132.17. * Avoid nephrotoxic agents, eg. NSAIDS. * Weight patient daily. * Monitor intake and output. Supportive measures - Multimodal pain management - Duloxetine started. -Maintain IV fluids, correct electrolytes -Serial abdominal exams -Straightener And Aligner on avoidance of NSAIDS and other related triggers. -Monitor Vitals and perform morning labs regularly Continue GI prophylaxis with Pantop Continue DVT prophylaxis with SCDs, we will avoid heparin due to history of allergies to porcine ATTESTATION BY PHYSICIAN I have seen and examined the patient. I reviewed the documentation, medical deci corina making, and treatment plan as noted by the resident physician above. I agree with the findings and plan of care. AYAKA BARR MD, HARSHAVARDHA MD Aug 20, 2025 13:11
--- NOTE | 2025-08-20 14:18 | PN ---
NEPHROLOGY PROGRESS NOTE Date/Time Patient Seen: Aug 20, 2025 SUBJECTIVE: This is a 55-year-old female with a past medical history of diabetes mellitus type 2, liver cirrhosis, esophageal varices. He presented to the emergency room with chief complain of abdominal pain. CT of the abdomen showed moderate small bowel enteritis with free air in the upper abdomen, suggesting perforated bowel versus post surgical changes. No obs truction. S/p diagnostic laparoscopy, abdominal washout, drain placement and diverting loop ileostomy creation with CHRIS drain 10 Maltese on 07/21 S/P cholecystotomy tube on 08/02 S/P Cholecystogram showed cholecystotomy tube in satisfactory position with multiple large gallstones seen in the gallbladder lumen on 08/09 S/P successful CT guided drainage of left infrasplenic collection on 08/09 Diet is being advanced as tolerated, continues on TPN as per surgery She was noted to have elevated BUN/creatinine We are consulted for renal failure Renal function is stable Continues with poor oral intake [facility], in no acute distress No family at the bedside REVIEW OF SYSTEMS: GENERAL: Positive for nausea NEUROLOGIC: Negative for any blurry vision, blind spots, double vision, facial asymmetry, dysphagia, dysarthria, hemiparesis, hemisensory deficits, vertigo, ataxia. HEENT: Negative for any head trauma, neck trauma, neck stiffness, photophobia, phonophobia, sinusitis, rhinitis. CARDIAC: Negative for any chest pain, dyspnea on exertion, paroxysmal nocturnal dyspnea, peripheral edema. PULMONARY: Negative for any shortness of breath, wheezing, COPD, or TB exposure. GASTROINTESTINAL: Negative for any abdominal pain, nausea, vomiting, bright red blood per rectum, melena. GENITOURINARY: Negative for any dysuria, hematuria, incontinence. INTEGUMENTARY: Negative for any rashes, cuts, insect bites. RHEUMATOLOGIC: Negative for any joint pains, photosensitive rashes, history of vasculitis or kidney problems. HEMATOLOGIC: Negative for any abnormal bruising, frequent infections or bleeding. Vital Signs (last 8hr) Date Time Temp Pulse Resp B/P (MAP) Pulse Ox O2 Delivery O2 Flow Rate FiO2 08/20/25 08:09 98.2 86 16 113/73 Room Air 08/20/25 08:00 95 Room Air* 0 21 PHYSICAL EXAM: GENERAL: Alert and oriented x 3. No acute distress. Well-nourished. EYES: EOMI. Anicteric. HENT: Moist mucous membranes. No scleral icterus. No cervical lymphadenopathy. LUNGS: Clear to auscultation bilaterally. No accessory muscle use. CARDIOVASCULAR: Regular rate and rhythm. No murmur. No JVD. ABDOMEN: Soft, non-tender and non-distended. No palpable masses. EXTREMITIES: No edema. Non-tender SKIN: No rashes or lesions. Warm. NEUROLOGIC: No focal neurological deficits. CN II-XII grossly intact, but not individually tested. PSYCHIATRIC: Cooperative. Appropriate mood and affect. Current Medications Medications (Trade) Dose Ordered Sig/Gregory Route Start Time Stop Time Status Last Admin Dose Admin Albumin Human 100 ml @ 0 mls/hr ONCE IV 07/25/25 12:00 07/26/25 11:59 DC 07/25/25 13:43 100 MLS/HR Cyclobenzaprine HCl (Cyclobenzaprine HCl) 5 mg TID PO 07/25/25 14:00 07/26/25 14:00 DC 07/26/25 14:19 5 MG Fluconazole/ Sodium Chloride (DiFLUCan 200 MG/ NS 100 ML) 200 mg Q24H IVPB 07/21/25 21:00 08/20/25 20:59 07/25/25 20:47 200 MG Furosemide (LASix 20MG TAB) 20 mg DAILY PO 07/25/25 11:00 08/24/25 10:59 07/26/25 08:56 20 MG Insulin Human Regular (humuLIN R 100 UNIT/ML 3ML) INSULIN SLIDING SCAL... ACHS SQ 07/21/25 07:30 08/20/25 07:29 07/22/25 20:40 3 UNIT Lactated Ringer's 1,000 ml @ 75 mls/hr [id number] IV 07/21/25 00:00 07/21/25 13:17 DC 07/21/25 02:57 75 MLS/HR Lactated Ringer's 1,000 ml @ 75 mls/hr [id number] IV 07/21/25 13:30 07/24/25 11:09 DC 07/24/25 09:27 75 MLS/HR Lactobacillus Rhamnosus ([facility] [employer]) 1 each DAILY20 PO 07/26/25 20:00 08/25/25 19:59 Metronidazole/ Sodium Chloride (flaGYL) 500 mg Q8H IV 07/21/25 14:00 07/21/25 13:40 DC Norepinephrine 250 ml @ 0 mls/hr PROTOCOL IV 07/20/25 23:30 08/19/25 23:29 07/21/25 10:56 18.45 MLS/HR Pantoprazole Sodium (PROTonix 40MG INJ) 40 mg BID IV 07/26/25 21:00 08/20/25 08:59 Pantoprazole Sodium (PROTonix 40MG INJ) 40 mg DAILY IV 07/21/25 09:00 07/26/25 09:31 DC 07/26/25 08:55 40 MG Pharmacy Profile Note (Pharmacy Communication) 1 each ONCE MISC 07/21/25 15:30 07/21/25 15:16 DC Piperacillin Sod/ Tazobactam Sod 50 ml @ 200 mls/hr ONCE STAT IVPB 07/20/25 19:15 07/20/25 19:29 DC 07/20/25 20:32 200 MLS/HR Piperacillin Sod/ Tazobactam Sod (Zosyn 3.375gm+NS 50ml) 3.375 gm Q12H IV 07/21/25 00:00 07/31/25 00:00 07/26/25 12:10 3.375 GM Psyllium Hydrophilic Mucilloid (Metamucil) 1 tbs BID PO 07/26/25 21:00 08/25/25 20:59 Sodium Bicarbonate 150 meq/Sodium Chloride 1,150 ml @ 0 mls/hr Q0M IVP 07/21/25 14:00 07/26/25 09:31 DC Spironolactone (Aldactone 25mg) 25 mg BID PO 07/25/25 21:00 07/26/25 09:01 DC 07/26/25 08:56 25 MG Thiamine HCl (Vitamin B-1) 100 mg DAILY IVP 07/22/25 21:00 08/21/25 20:59 07/26/25 08:55 100 MG Thiamine HCl 100 mg/Sodium Chloride 50 ml @ 100 mls/hr Q24H IM 07/21/25 15:30 07/21/25 16:25 DC Vancomycin HCl (Vancomycin 1g/ 250ml Kit) 1 gm ONCE STAT IV 07/20/25 21:23 07/20/25 21:26 DC 07/20/25 22:06 1 GM Vasopressin 20 units/Sodium Chloride 100 ml @ 0 mls/hr PROTOCOL IV 07/21/25 00:30 08/20/25 00:29 07/21/25 00:10 9 MLS/HR LABORATORY: [ ] Hematology Labs: Test 08/20/25 08:39 08/19/25 03:30 Range/Units White Blood Count 5.1 4.8-10.8 K/uL Red Blood Count 3.75 L 4.00-5.50 MIL/uL Hemoglobin 11.3 L 12.0-16.0 g/dL Hematocrit 34.1 L 36-48 % Mean Corpuscular Volume 90.9 79-99 fL Mean Corpuscular Hemoglobin 30.1 27.0-33.0 pg Mean Corpuscular Hemoglobin Concent 33.1 32.0-36.0 g/dL Red Cell Distribution Width 17.8 H 11.0-15.5 % Platelet Count 238 130-400 K/uL Mean Platelet Volume 9.4 7.5-10.5 fL Nucleated Red Blood Cells 0.0 0.0-0.19 % Immature Granulocyte % (Auto) 2.4 H 0-1 % Neutrophils (%) (Auto) 65.6 40.0-77.0 % Lymphocytes (%) (Auto) 16.3 L 21.0-51.0 % Monocytes (%) (Auto) 10.7 3.0-13.0 % Eosinophils (%) (Auto) 4.0 0.0-8.0 % Basophils (%) (Auto) 1.0 0.0-5.0 % Neutrophils # (Auto) 3.3 1.8-7.7 K/uL Lymphocytes # (Auto) 0.8 L 1.0-4.8 K/uL Monocytes # (Auto) 0.5 0.1-1.0 K/uL Eosinophils # (Auto) 0.20 0.00-0.70 K/uL Basophils # (Auto) 0.05 0.00-0.20 K/uL Absolute Immature Granulocyte (auto 0.12 0-1 K/uL Chemistry Labs: Test 08/20/25 11:12 08/20/25 08:39 Range/Units Whole Blood Glucose 134 H 70-110 MG/DL Sodium Level 128 L 136-145 mmol/L Potassium Level 4.7 3.5-5.1 mmol/L Chloride Level 99 L 101-111 mmol/L Carbon Dioxide Level 21 21-32 mmol/L Blood Urea Nitrogen 12 7-18 mg/dL Creatinine 1.0 0.5-1.0 mg/dL Glomerular Filtration Rate Calc 66 >90 mL/min Random Glucose 99 70-105 mg/dL Total Calcium 9.1 8.5-10.1 mg/dL DIAGNOSTICS / RADIOLOGY: [facility] [address] [place] [address] IMAGING REPORT Signed PATIENT: DALLAS BUCHANAN MR#: [id number] : 1970 SEX: F AGE: 55 LOCATION: [facility] ORDER 1 STATUS: ADM IN REPORT#: [id number] SERVICE 0 REASON: picc line placement ORDERING PHYSICIAN: AYAKA BARR MD PROCEDURE: CXR1VW - CHEST 1VW EXAM: CR Chest, single view. CLINICAL HISTORY: PICC line placement. COMPARISON: Prior chest radiograph dated July 22, 2025 FINDINGS: Left-sided PICC line placement with tip in the region of the superior vena cava. Mild cardiomegaly. An ill-defined soft tissue in the superior mediastinum possibility of aortic arch aneurysm, is not excluded. The lungs show no infiltrate or other acute findings. No pleural effusion or pneumothorax. No acute osseous abnormality. IMPRESSION: Left-sided PICC line placement with tip in the region of the superior vena cava. Mild cardiomegaly. An ill-defined soft tissue in the superior mediastinum possibility of aortic arch aneurysm, is not excluded. May consider further evaluation with contrast-enhanced CT thorax. Compared to the prior study, there is no interval resolution of the subsegmental atelectasis in the right lower lobe, interval removal of the nasogastric tube, and interval placement of the left-sided PICC catheter. /[place]angle DICTATED BY: ELDON MILLER Jr., MD DATE: 08/11/25824 ELECTRONICALLY SIGNED BY: ELDON MILLER Jr., MD DATE: 08/11/25824 PATIENT: DALLAS BUCHANAN MR#: [id number] : 1970 SEX: F AGE: 55 LOCATION: 4AH ORDER 1544 STATUS: ADM IN REPORT#: [id number] SERVICE 08 REASON: Aspiration of perisplenic fluid noted on CT ORDERING PHYSICIAN: BENEDICTO OBRIEN Jr. PROCEDURE: GUID NDL - CT GUIDE NDL PLCMT IR CT GUIDE NDL PLCMT IR HISTORY: Aspiration of perisplenic fluid noted on CT infrasplenic fluid collection drainage . TECHNIQUE: Images from prior studies reviewed. Informed consent was obtained after explaining the procedure and potential complications to the patient. Time out performed. The patient was placed prone on the CT couch and images of the abdomen obtained. The left flank draped in sterile fashion. Local anesthesia was applied and under CT-fluoroscopy guidance, a 19-gauge needle introducer was advanced through the abdominal wall and into a left infrasplenic fluid collection in the left hemiabdomen. Then, over a wire the tract was dilated to accommodate a 8 Maltese APDL catheter, which was left coiled within the collection. Completion images reveal no hemorrhage. Patient tolerated the procedure well and was discharged from the department in good condition. Approximately 10 cc of fluid mL of fluid sent for cultures. Conscious sedation provided by a registered nurse who monitored the patient's vital signs throughout and after the procedure. MEDICATIONS: Fentanyl 100 mcg IV and Versed 2 mg IV IMPRESSION: Successful CT guided drainage of left infrasplenic collection. DICTATED BY: GREER FIORE MD DATE: 08/10/25927 ELECTRONICALLY SIGNED BY: GREER FIORE MD DATE: 08/10/25937 PATIENT: DALLAS BUCHANAN MR#: [id number] : 1970 SEX: F AGE: 55 LOCATION: 4AH ORDER 36 STATUS: ADM IN REPORT#: [id number] SERVICE 133 REASON: epigastric pain. not tolerating meals. ORDERING PHYSICIAN: SUSAN JHAVERI MD PROCEDURE: ABD PEL W - CT ABDOMEN/PELVIS W/CONTRAST EXAM: CT Abdomen and Pelvis with IV contrast CLINICAL HISTORY: epigastric pain. not tolerating meals. TECHNIQUE: Axial computed tomography images of the abdomen and pelvis with intravenous contrast. CONTRAST: with intravenous contrast. COMPARISON: Compared with the previous CT dated 07/20 and USG dated 07/29 FINDINGS: LUNG BASES: Grossly stable atelectasis and scarring at the lung bases. LIVER: Unremarkable. GALLBLADDER AND BILE DUCTS: The gallbladder is decompressed with a cholecystostomy tube in situ. PANCREAS: Unremarkable. SPLEEN: The spleen is enlarged in size, measuring 15.2 cm. ADRENAL GLANDS: Unremarkable. KIDNEYS, URETERS, AND BLADDER: No hydronephrosis or nephrolithiasis. No ureteral calculi. The urinary bladder is unremarkable. STOMACH AND BOWEL: The ileostomy site appears unremarkable. Interval resolution of previously seen moderate small bowel enteritis. No obstruction. APPENDIX: No CT evidence for appendicitis. PERITONEUM: Near complete interval resolution of previously seen moderate ascites in the abdomen and pelvis. Collection in the perisplenic and infra-splenic region measuring 6.0 x 6.1 x 8.9 cm. Interval resolution of previously seen pneumoperitoneum. Diffuse mesenteric fat stranding, likely postoperative changes. LYMPH NODES: No lymphadenopathy. REPRODUCTIVE: Unremarkable as visualized. VASCULATURE: No aortic aneurysm. ABDOMINAL WALL AND SOFT TISSUES: Interval resolution of previously seen subcutaneous emphysema in the anterior abdominal wall and left lateral chest wall. Abdominal drain in situ with tip in the pelvis. BONES: No fracture or suspicious osseous abnormality. IMPRESSION: 1. Perisplenic and infrasplenic fluid collection measuring 6.0 x 6.1 x 8.9 cm. 2. Splenomegaly, with spleen measuring 15.2 cm. 3. Cholecystostomy tube in situ with decompressed gallbladder. 4. Abdominal drain in situ with tip in the pelvis. 5. No acute findings in the remainder of the abdomen and pelvis. /Spangle DICTATED BY: ELDON MILLER Jr., MD DATE: 08/04/251636 ELECTRONICALLY SIGNED BY: ELDON MILLER Jr., MD DATE: 08/04/251636 PATIENT: DALLAS BUCHANAN MR#: [id number] : 1970 SEX: F AGE: 55 LOCATION: 4AH ORDER 1524 STATUS: ADM IN REPORT#: [id number] SERVICE 1523 REASON: cholecystitis ORDERING PHYSICIAN: BENEDICTO OBRIEN Jr. PROCEDURE: HIDA PHARM - NM HIDA/HEPATOBILI W/ PHARMACO EXAM: HIDA scan. INDICATION: Severe RUQ Pain to rule out cholecystitis. REFERENCE EXAMINATION: USG July 29, 2025. TECHNIQUE: Sequential images of the abdomen were obtained in the anterior projection after IV administration of 6.0 mCi of Tc99m Mebrofenin. FINDINGS: Tracer activity throughout the liver is homogeneous without focal defects. There is prompt excretion of the pharmaceutical into the bile ducts and into the small bowel, without evidence of obstruction. There is no visualization of the gallbladder at the conclusion of the examination. IMPRESSION: Scintigraphic findings are compatible with acute cholecystitis. /Spangle DICTATED BY: ELDON MILLER Jr., MD DATE: 08/01/25 101 ELECTRONICALLY SIGNED BY: ELDON MILLER Jr., MD DATE: 08/01/25 101 PATIENT: DALLAS BUCHANAN MR#: [id number] : 1970 SEX: F AGE: 55 LOCATION: 4AH ORDER 10 STATUS: ADM IN REPORT#: [id number] SERVICE 09 REASON: ABD PAIN ORDERING PHYSICIAN: NIKKI MUNOZ NP PROCEDURE: ABD 1VW - ABD 1VW EXAM: CR Abdomen, 1 view. CLINICAL HISTORY: Pain. COMPARISON: None provided. FINDINGS: Dilated small bowel loops are seen in mid abdomen. There is a density in the pelvis which may represent a send drainage catheter. No free air is evident. No abnormal calcification. No aggressive appearing osseous lesion. IMPRESSION: Dilated small bowel loops are seen in mid abdomen. Density in the pelvis which may represent a send drainage catheter. /[facility] DICTATED BY: TOBI LEAHY MD DATE: 07/29/251032 ELECTRONICALLY SIGNED BY: TOBI LEAHY MD DATE: 07/29/25 103 PATIENT: DALLAS BUCHANAN MR#: [id number] : 1970 SEX: F AGE: 55 LOCATION: 4AH ORDER 1519 STATUS: ADM IN REPORT#: [id number] SERVICE 151 REASON: Liver cirrhosis ORDERING PHYSICIAN: LISET DOUGLAS MD PROCEDURE: ABDOMEN - US ABDOMINAL COMPLETE EXAM: US Abdomen complete CLINICAL HISTORY: Liver cirrhosis TECHNIQUE: Real-time ultrasound of the abdomen (complete) with image documentation. COMPARISON: None provided. FINDINGS: LIVER: Liver measures 12.3 cm with a heterogeneous coarse echotexture. GALLBLADDER: Gallbladder contains stones and sludge. Gallbladder is distended. COMMON BILE DUCT: No dilation. PANCREAS: Pancreas not well-visualized due to overlying bowel gas KIDNEYS: Normal renal contours. No renal mass or calculus. No hydronephrosis. SPLEEN: Normal in size and echogenicity. No mass identified. AORTA: No aneurysm. IVC: Unremarkable as visualized. MISCELLANEOUS: Small amount of abdominal ascites. IMPRESSION: 1. Cirrhotic-appearing liver. 2. Cholelithiasis and biliary sludge with gallbladder distension. 3. Small volume ascites. /[facility] DICTATED BY: CYNTHIA JULIAN MD DATE: 07/29/25 105 ELECTRONICALLY SIGNED BY: CYNTHIA JULIAN MD DATE: 07/29/25 105 PATIENT: DALLAS BUCHANAN MR#: [id number] : 1970 SEX: F AGE: 55 LOCATION: 2BH ORDER 1108 STATUS: ADM IN REPORT#: [id number] SERVICE 1106 REASON: sob ORDERING PHYSICIAN: PREET BOSTON MD PROCEDURE: CXR1VW - CHEST 1VW CHEST 1VW REASON: sob COMPARISON: Study from 07/21/2025 is available. FINDINGS: Single view of the chest was obtained. Lungs are clear. Heart size is normal. There is no pulmonary vascular congestion. There is a right-sided PIC catheter with tip in superior vena cava. There is a nasogastric tube with the tip in the fundus of the stomach. Mediastinum and bony thorax appear unremarkable. IMPRESSION: 1. No acute cardiopulmonary process 2. The support lines are in satisfactory position.. DICTATED BY: GREER FIORE MD DATE: 07/22/251349 ELECTRONICALLY SIGNED BY: GREER FIORE MD DATE: 07/22/251353 PATIENT: DALLAS BUCHANAN MR#: [id number] : 1970 SEX: F AGE: 55 LOCATION: 2B ORDER STATUS: ADM IN REPORT#: [id number] SERVICE REASON: PICC LINE ORDERING PHYSICIAN: HEATHER LEACH APRN PROCEDURE: CXR1VW - CHEST 1VW EXAM: CR Chest, single view. CLINICAL HISTORY: PICC line COMPARISON: Prior same day chest radiograph. FINDINGS: Right-sided PICC catheter with tip in the cavoatrial junction. Subsegmental atelectasis in the right lower lobe. No evidence of pleural effusion or pneumothorax. The cardiomediastinal silhouette is within normal limits. No acute osseous abnormality. IMPRESSION: Right-sided PICC catheter with tip in the cavoatrial junction. Subsegmental atelectasis in the right lower lobe. No evidence of pleural effusion or pneumothorax. Compared to the prior study, there is interval placement of the right-sided PICC line and interval resolution of the subsegmental atelectasis in the left lower lobe. /Spangle DICTATED BY: ELDON MILLER Jr., MD DATE: 07/21/25816 ELECTRONICALLY SIGNED BY: ELDON MILLER Jr., MD DATE: 07/21/25816 PATIENT: DALLAS BUCHANAN MR#: [id number] : 1970 SEX: F AGE: 55 LOCATION: [facility] ORDER 14 STATUS: [facility] REPORT#: [id number] SERVICE 12 REASON: CHEST PAIN/COUGH ORDERING PHYSICIAN: ALHAJI SHINE NP PROCEDURE: CXR1VW - CHEST 1VW EXAM: XR Chest, 1 View. CLINICAL HISTORY: 55 year old female with chest pain and cough. COMPARISON: None provided. FINDINGS: LUNGS: The lungs demonstrate evidence of atelectasis. PLEURAL SPACES: A small right pleural effusion is present. HEART: The heart size is normal. BONES: No acute osseous abnormality. IMPRESSION: 1. Small right pleural effusion and right lung base atelectasis. /[facility] DICTATED BY: EDWIGE LEDESMA MD DATE: 07/20/252046 ELECTRONICALLY SIGNED BY: EDWIGE LEDESMA MD DATE: 07/20/252046 PATIENT: DALLAS BUCHANAN MR#: [id number] : 1970 SEX: F AGE: 55 LOCATION: [facility] ORDER 14 STATUS: REG ER REPORT#: [id number] SERVICE 12 REASON: Abdominal Pain ORDERING PHYSICIAN: ALHAJI SHINE NP PROCEDURE: ABD PEL W - CT ABDOMEN/PELVIS W/CONTRAST ADDENDUM REPORT ADDENDUM: Results were shared by telephone at 23:23 pm on 07-20-2025 and acknowledged by Pt nurse Ms. SHIN BOYKIN. /[facility] EXAM: CT Abdomen and Pelvis with Intravenous Contrast CLINICAL HISTORY: 55-year-old female with abdominal pain. TECHNIQUE: Axial computed tomography images of the abdomen and pelvis with intravenous contrast. Dose reduction technique was used including one or more of the following: automated exposure control, adjustment of mA and kV according to patient size, and/or iterative reconstruction. CONTRAST: Omnipaque 350, 75 mL COMPARISON: None provided. FINDINGS: LUNG BASES: Atelectasis and scarring at the lung bases. LIVER: Unremarkable. GALLBLADDER AND BILE DUCTS: Tiny gallstone seen. PANCREAS: Unremarkable. SPLEEN: Unremarkable. ADRENAL GLANDS: Unremarkable. KIDNEYS, URETERS, AND BLADDER: Dueñas catheter seen in the bladder lumen. No hydronephrosis or nephrolithiasis. No ureteral calculi. STOMACH AND BOWEL: Edema or loops of small bowel suggesting moderate small bowel enteritis. Free air in the upper abdomen is seen, suggesting perforated bowel. No obstruction. APPENDIX: No CT evidence for appendicitis. PERITONEUM: Moderate ascites in the abdomen and pelvis. No free air under the diaphragm. LYMPH NODES: No lymphadenopathy. REPRODUCTIVE: Unremarkable as visualized. VASCULATURE: No aortic aneurysm. ABDOMINAL WALL AND SOFT TISSUES: There is air in the subcutaneous soft tissue seen anteriorly, suggesting recent postsurgical changes; please correlate with surgical history. BONES: No fracture or suspicious osseous abnormality. IMPRESSION: 1. Moderate small bowel enteritis with free air in the upper abdomen, suggesting perforated bowel versus post surgical changes. No obstruction. 2. Moderate ascites in the abdomen and pelvis. 3. Air in the subcutaneous soft tissue anteriorly, suggesting recent postsurgical changes; please correlate with surgical history. /Spangle DICTATED BY: EDWIGE LEDESMA MD DATE: 07/20/25 7055 ELECTRONICALLY SIGNED BY: DATE: EXAM: CT Abdomen and Pelvis with Intravenous Contrast CLINICAL HISTORY: 55-year-old female with abdominal pain. TECHNIQUE: Axial computed tomography images of the abdomen and pelvis with intravenous contrast. Dose reduction technique was used including one or more of the following: automated exposure control, adjustment of mA and kV according to patient size, and/or iterative reconstruction. CONTRAST: Omnipaque 350, 75 mL COMPARISON: None provided. FINDINGS: LUNG BASES: Atelectasis and scarring at the lung bases. LIVER: Unremarkable. GALLBLADDER AND BILE DUCTS: Tiny gallstone seen. PANCREAS: Unremarkable. SPLEEN: Unremarkable. ADRENAL GLANDS: Unremarkable. KIDNEYS, URETERS, AND BLADDER: Dueñas catheter seen in the bladder lumen. No hydronephrosis or nephrolithiasis. No ureteral calculi. STOMACH AND BOWEL: Edema or loops of small bowel suggesting moderate small bowel enteritis. Free air in the upper abdomen is seen, suggesting perforated bowel. No obstruction. APPENDIX: No CT evidence for appendicitis. PERITONEUM: Moderate ascites in the abdomen and pelvis. No free air under the diaphragm. LYMPH NODES: No lymphadenopathy. REPRODUCTIVE: Unremarkable as visualized. VASCULATURE: No aortic aneurysm. ABDOMINAL WALL AND SOFT TISSUES: There is air in the subcutaneous soft tissue seen anteriorly, suggesting recent postsurgical changes; please correlate with surgical history. BONES: No fracture or suspicious osseous abnormality. IMPRESSION: 1. Moderate small bowel enteritis with free air in the upper abdomen, suggesting perforated bowel versus post surgical changes. No obstruction. 2. Moderate ascites in the abdomen and pelvis. 3. Air in the subcutaneous soft tissue anteriorly, suggesting recent postsurgical changes; please correlate with surgical history. /Spangle DICTATED BY: EDWIGE LEDESMA MD DATE: 07/20/252317 ELECTRONICALLY SIGNED BY: EDWIGE LEDESMA MD DATE: 07/20/252317 ASSESSMENT: Acute kidney injury Hyponatremia Bacterial peritonitis Perisplenic and infrasplenic fluid collection with splenomegaly Cholelithiasis 2 mm perforation of the colonic anastomosis Anastomosis leak Bilious peritonitis S/p Diagnostic laparoscopy, abdominal washout, drain placement and diverting loop ileostomy creation Atrophic vaginitis Anemia Diabetes Mellitus Type 2 Septic Shock Cirrhosis of liver Oesophageal Varices PLAN: Labs, diagnostic, radiologic exams reviewed and interpreted by myself and supervising physician. We have reviewed external records in detail Pending further surgery recommendations for possible removal of percutaneous drain Continue with antibiotics as per ID BiPAP as necessary, for respiratory distress Monitor blood pressure adjust medication doses as needed Avoid hypotensive episodes May use Dilaudid 0.5 mg IV every 6 hours as needed for severe pain Monitor blood sugars Strict intake, output, and daily weight should be monitored Please renally adjust medications Avoid nephrotoxic and nonsteroidal drugs Avoid contrast if possible Will continue to monitor renal function, anemia, electrolytes Treatment plan discussed with patient Questions were answered We have discussed with the other team physicians in detail about the care plan We will continue to monitor the patient closely ATTESTATION BY PHYSICIAN I have seen and examined the patient. I reviewed the documentation, medical decision making, and treatment plan as noted by the mid-level provider above. I agree with the findings and plan of care. CIELO PORTILLO MD, [facility] Aug 20, 2025 14:18
--- NOTE | 2025-08-20 16:04 | PN ---
INFECTIOUS DISEASE PROGRESS NOTE Date of Service: Aug 20, 2025 SUBJECTIVE: Patient is pending an abscessogram to be done on Saturday in preparation to discontinue the percutaneous drain. Patient was up ambulating in no distress. No nausea or vomiting reported. Patient is afebrile. We will continue on Zosyn and fluconazole until Saturday. PHYSICAL EXAM EYES: Anicteric. Pupils equal and reactive. HENT: No oral thrush seen, moist Oral mucosa. NECK: Supple, no JVD or thyromegaly. LUNGS: Good air entry. No rales, no rhonchi. CARDIOVASCULAR: S1, S2 regular. No murmur heard. ABDOMEN: Soft, non tender, bowel sounds present. Left Perisplenic abscess perc utaneous drainage catheter. Right ileostomy. Right cholecystostomy tube. CENTRAL NERVOUS SYSTEM: Awake, alert, oriented x 3. SKIN: No rashes, no swelling. LYMPHATICS: No peripheral lymphadenopathy. MUSCULOSKELETAL: No joint swelling, erythema or tenderness. EXTREMITIES: No cyanosis or clubbing. BACK: No deformity, no pressure ulcer. GENITOURINARY: No dysuria or hematuria. Vital Sign (Last 12 Hours) 08/20/25 08/20/25 08:00 08:09 Temp 98.2 Pulse 86 Resp 16 B/P (MAP) 113/73 Pulse Ox 95 O2 Delivery Room Air* Room Air O2 Flow Rate 0 FiO2 21 Intake & Output (last 24hrs) 08/19/25 08/19/25 08/20/25 15:00 23:00 07:00 Intake Total 172.0 ml 710.0 ml 60.0 ml Output Total 600 ml 1980 ml 240 ml Balance -428.0 ml -1270.0 ml -180.0 ml LABS: Laboratory: Test 08/20/25 11:12 08/20/25 08:39 08/19/25 03:30 Range/Units Whole Blood Glucose 134 H 70-110 MG/DL White Blood Count 5.1 4.8-10.8 K/uL Red Blood Count 3.75 L 4.00-5.50 MIL/uL Hemoglobin 11.3 L 12.0-16.0 g/dL Hematocrit 34.1 L 36-48 % Mean Corpuscular Volume 90.9 79-99 fL Mean Corpuscular Hemoglobin 30.1 27.0-33.0 pg Mean Corpuscular Hemoglobin Concent 33.1 32.0-36.0 g/dL Red Cell Distribution Width 17.8 H 11.0-15.5 % Platelet Count 238 130-400 K/uL Mean Platelet Volume 9.4 7.5-10.5 fL Nucleated Red Blood Cells 0.0 0.0-0.19 % Sodium Level 128 L 136-145 mmol/L Potassium Level 4.7 3.5-5.1 mmol/L Chloride Level 99 L 101-111 mmol/L Carbon Dioxide Level 21 21-32 mmol/L Blood Urea Nitrogen 12 7-18 mg/dL Creatinine 1.0 0.5-1.0 mg/dL Glomerular Filtration Rate Calc 66 >90 mL/min Random Glucose 99 70-105 mg/dL Total Calcium 9.1 8.5-10.1 mg/dL Immature Granulocyte % (Auto) 2.4 H 0-1 % Neutrophils (%) (Auto) 65.6 40.0-77.0 % Lymphocytes (%) (Auto) 16.3 L 21.0-51.0 % Monocytes (%) (Auto) 10.7 3.0-13.0 % Eosinophils (%) (Auto) 4.0 0.0-8.0 % Basophils (%) (Auto) 1.0 0.0-5.0 % Neutrophils # (Auto) 3.3 1.8-7.7 K/uL Lymphocytes # (Auto) 0.8 L 1.0-4.8 K/uL Monocytes # (Auto) 0.5 0.1-1.0 K/uL Eosinophils # (Auto) 0.20 0.00-0.70 K/uL Basophils # (Auto) 0.05 0.00-0.20 K/uL Absolute Immature Granulocyte (auto 0.12 0-1 K/uL ASSESSMENT: Acute cholecystitis, s/p cholecystostomy tube placement on 08/02/2025. Concern for cholecystostomy tube dislodgement status post cholecystogram with findings of multiple gallstones on 08/09/2025. Perisplenic abscess, s/p CT-guided drainage placement on 08/09/2025. Persistent abdominal pain, s/p EGD with findings acute gastritis. Septic shock, resolved. Possible continues bacterial peritonitis. Generalized peritonitis with ESBL and E coli infection. Infection with multidrug resistant organism. Hypoalbuminemia, improving. Suspected bowel perforation, s/p diagnostic laparoscopy, abdominal washout, ileostomy creation and CHRIS drain placement on 07/21/2025, s/p CHRIS drain removal. Diabetes mellitus. Recent colovesical fistula repair with sigmoid colon resection and anastomosis on 07/09/2025 PLAN: Continue Zosyn. Continue fluconazole. Continue pain management. Continue GI prophylaxis. Continue antidiabetics. Continue nutritional support. Pending an abscessogram to be done on Saturday. This case was reviewed and discussed with my supervising physician Dr. Roger and the above assessment and plan was formulated and agreed upon. ATTESTATION BY PHYSICIAN I have seen and examined the patient. I reviewed the documentation, medical decision making, and treatment plan as noted by the mid-level provider above. I agree with the findings and plan of care. AMIE ROGER MD, [facility] Aug 20, 2025 16:04
--- NOTE | 2025-08-20 16:43 | PN ---
This is a 55-year-old female status post laparoscopic washout and loop ileostomy Interval history: This 55-year-old female seen in her room Patient is off TPN Radiology Department unable to perform this study for potential removal percutaneous drain until Saturday Patient continues to refuse protein drinks Patient tolerating diet Physical exam General: Awake alert and oriented Heart: Regular rate and rhythm} Lungs: Clear to auscultation no distress Abdomen: [Soft, nontender, nondistended Cholecystostomy tube in percutaneous drain in place Assessment : This is a 55-year-old female status post laparoscopic washout and loop ileostomy Plan: At this point in time patient to continue with diet Continue to monitor ostomy output Strict I's and O's of cholecystostomy tube Continue with the IV fluids and IV antibiotics Dr. Gann updated in patient's status Surgical case has been discussed with my supervising physician in the above plan was formulated and agreed upon We appreciate the hospitalist team for us to participate in patient's care. Greater than 45 minutes of time spent patient, reviewing chart, working on documentation Vitals/Labs Vital Signs Date Time Temp Pulse Resp B/P (MAP) Pulse Ox O2 Delivery O2 Flow Rate FiO2 08/20/25 08:09 98.2 86 16 113/73 Room Air 08/20/25 08:00 95 0 21 Laboratory Tests 08/20/25 08:39 Medications Current Medications Sodium Chloride 1,000 ml @ 0 mls/hr ONCE ONCE IV; Start 07/20/25 at 18:30; Stop 07/20/25 at 18:31; Status DC Piperacillin Sod/ Tazobactam Sod 50 ml @ 200 mls/hr ONCE STAT IVPB Last administered on 07/20/25at 20:32; Start 07/20/25 at 19:15; Stop 07/20/25 at 19:29; Status DC Sodium Chloride 2,109 ml @ 703 mls/hr ONCE ONCE IV Last administered on 07/20/25at 20:28; Start 07/20/25 at 19:30; Stop 07/20/25 at 22:29; Status DC Iohexol 75 ml STK-MED ONCE IV; Start 07/20/25 at 20:31; Stop 07/20/25 at 20:31; Status DC Vancomycin HCl 1 gm ONCE STAT IV Last administered on 07/20/25at 22:06; Start 07/20/25 at 21:23; Stop 07/20/25 at 21:26; Status DC Morphine Sulfate 4 mg ONCE ONCE IVP Last administered on 07/20/25at 23:15; Start 07/20/25 at 23:30; Stop 07/20/25 at 23:31; Status DC Ondansetron HCl 4 mg ONCE ONCE IVP Last administered on 07/20/25at 23:14; Start 07/20/25 at 23:30; Stop 07/20/25 at 23:31; Status DC Norepinephrine 250 ml @ 0 mls/hr PROTOCOL IV Last administered on 07/21/25at 10:56; Start 07/20/25 at 23:30; Stop 08/03/25 at 08:27; Status DC Piperacillin Sod/ Tazobactam Sod 3.375 gm Q12H IV Last administered on 07/30/25at 23:55; Start 07/21/25 at 00:00; Stop 07/31/25 at 00:00; Status DC Acetaminophen 650 mg Q6H PRN RC; Start 07/21/25 at 00:00; Stop 07/27/25 at 16:22; Status DC Pantoprazole Sodium 40 mg DAILY IV Last administered on 07/26/25at 08:55; Start 07/21/25 at 09:00; Stop 07/26/25 at 09:31; Status DC Ondansetron HCl 4 mg Q6H PRN IV; Start 07/21/25 at 00:00; Stop 07/21/25 at 13:18; Status DC Morphine Sulfate 2 mg Q4H PRN IVP Last administered on 07/21/25at 04:46; Start 07/21/25 at 00:30; Stop 07/21/25 at 13:18; Status DC Lactated Ringer's 1,000 ml @ 75 mls/hr [id number] IV Last administered on 07/21/25at 02:57; Start 07/21/25 at 00:00; Stop 07/21/25 at 13:17; Status DC Insulin Human Regular INSULIN SLIDING SCAL... ACHS SQ Last administered on 08/18/25at 17:31; Start 07/21/25 at 07:30; Stop 08/20/25 at 07:29; Status DC Vasopressin 20 units/Sodium Chloride 100 ml @ 0 mls/hr PROTOCOL IV Last administered on 07/21/25at 00:10; Start 07/21/25 at 00:30; Stop 08/03/25 at 08:27; Status DC Vasopressin 20 units STK-MED ONCE .ROUTE; Start 07/21/25 at 00:10; Stop 07/21/25 at 00:11; Status DC Magnesium Sulfate 50 ml @ 0 mls/hr PROTOCOL PRN IV Last administered on 08/01/25at 06:05; Start 07/21/25 at 07:00; Stop 08/20/25 at 06:59; Status DC Acetaminophen 100 ml @ As Directed STK-MED ONCE .ROUTE; Start 07/21/25 at 09:42; Stop 07/21/25 at 09:42; Status DC Famotidine 20 mg STK-MED ONCE IV; Start 07/21/25 at 09:42; Stop 07/21/25 at 09:42; Status DC Albumin Human 500 ml @ As Directed STK-MED ONCE IV; Start 07/21/25 at 09:45; Stop 07/21/25 at 09:45; Status DC Phenylephrine HCl 10 mg STK-MED ONCE IV; Start 07/21/25 at 09:48; Stop 07/21/25 at 09:48; Status DC Dexamethasone Sodium Phosphate 10 mg STK-MED ONCE .ROUTE; Start 07/21/25 at 09:52; Stop 07/21/25 at 09:52; Status DC Ondansetron HCl 4 mg STK-MED ONCE .ROUTE; Start 07/21/25 at 09:52; Stop 07/21/25 at 09:52; Status DC Lidocaine HCl 100 mg STK-MED ONCE .ROUTE; Start 07/21/25 at 09:52; Stop 07/21/25 at 09:52; Status DC Succinylcholine Chloride 200 mg STK-MED ONCE .ROUTE; Start 07/21/25 at 09:53; Stop 07/21/25 at 09:53; Status DC Glycopyrrolate 1 mg STK-MED ONCE .ROUTE; Start 07/21/25 at 09:53; Stop 07/21/25 at 09:53; Status DC Fentanyl Citrate 100 mcg STK-MED ONCE .ROUTE; Start 07/21/25 at 09:54; Stop 07/21/25 at 09:54; Status DC Propofol 200 mg STK-MED ONCE IV; Start 07/21/25 at 09:54; Stop 07/21/25 at 09:54; Status DC Neostigmine Methylsulfate 10 mg STK-MED ONCE IV; Start 07/21/25 at 09:54; Stop 07/21/25 at 09:54; Status DC Rocuronium [place] 50 mg STK-MED ONCE .ROUTE; Start 07/21/25 at 09:54; Stop 07/21/25 at 09:54; Status DC Ketamine HCl 50 mg STK-MED ONCE .ROUTE; Start 07/21/25 at 09:55; Stop 07/21/25 at 09:56; Status DC Epinephrine HCl 1 mg STK-MED ONCE .ROUTE; Start 07/21/25 at 10:03; Stop 07/21/25 at 10:03; Status DC Midazolam HCl 2 mg STK-MED ONCE .ROUTE; Start 07/21/25 at 10:05; Stop 07/21/25 at 10:05; Status DC Indocyanine Green 25 mg STK-MED ONCE IJ; Start 07/21/25 at 10:49; Stop 07/21/25 at 10:49; Status DC Ephedrine Sulfate 50 mg STK-MED ONCE .ROUTE; Start 07/21/25 at 11:17; Stop 07/21/25 at 11:17; Status DC Bupivacaine HCl 5 mg STK-MED ONCE .ROUTE Last administered on 07/21/25at 12:14; Start 07/21/25 at 11:49; Stop 07/21/25 at 11:49; Status DC Sodium Bicarbonate 200 ml @ As Directed STK-MED ONCE .ROUTE; Start 07/21/25 at 12:19; Stop 07/21/25 at 12:19; Status DC Fentanyl Citrate 100 mcg STK-MED ONCE .ROUTE; Start 07/21/25 at 12:23; Stop 07/21/25 at 12:23; Status DC Phytonadione 10 mg STK-MED ONCE .ROUTE; Start 07/21/25 at 13:05; Stop 07/21/25 at 13:05; Status DC Lactated Ringer's 1,000 ml @ 75 mls/hr [id number] IV Last administered on 07/24/25at 09:27; Start 07/21/25 at 13:30; Stop 07/24/25 at 11:09; Status DC Morphine Sulfate 4 mg Q3H PRN IV Last administered on 07/26/25at 10:51; Start 07/21/25 at 13:30; Stop 07/26/25 at 16:29; Status DC Ondansetron HCl 4 mg Q4H PRN IVP Last administered on 08/16/25at 10:23; Start 07/21/25 at 13:30; Stop 08/16/25 at 17:50; Status DC Fentanyl Citrate 100 mcg STK-MED ONCE .ROUTE; Start 07/21/25 at 13:26; Stop 07/21/25 at 13:26; Status DC Sodium Bicarbonate 150 meq/Sodium Chloride 1,150 ml @ 0 mls/hr Q0M IVP; Start 07/21/25 at 14:00; Stop 07/26/25 at 09:31; Status DC Sodium Bicarbonate 100 meq ONCE ONCE IV; Start 07/21/25 at 14:00; Stop 07/21/25 at 14:23; Status DC Metronidazole/ Sodium Chloride 500 mg Q8H IV; Start 07/21/25 at 14:00; Stop 07/21/25 at 13:40; Status DC Fluconazole/ Sodium Chloride 200 mg Q24H IVPB Last administered on 08/19/25at 20:18; Start 07/21/25 at 21:00; Stop 08/20/25 at 20:59 Pharmacy Profile Note 1 each ONCE MISC; Start 07/21/25 at 15:30; Stop 07/21/25 at 15:16; Status DC Thiamine HCl 100 mg/Sodium Chloride 50 ml @ 100 mls/hr Q24H IM; Start 07/21/25 at 15:30; Stop 07/21/25 at 16:25; Status DC Sodium Bicarbonate 100 meq ONCE ONCE IV Last administered on 07/21/25at 16:42; Start 07/21/25 at 16:30; Stop 07/21/25 at 16:31; Status DC Thiamine HCl 100 mg DAILY IVP Last administered on 08/20/25at 09:24; Start 07/22/25 at 21:00; Stop 08/21/25 at 20:59 Diatrizoate Meglum/ Diatrizoate Sod 30 ml STK-MED ONCE .ROUTE; Start 07/23/25 at 15:13; Stop 07/23/25 at 15:13; Status DC Potassium Chloride 100 ml @ 100 mls/hr AD PRN IV Last administered on 07/30/25at 06:23; Start 07/24/25 at 08:30; Stop 08/23/25 at 08:29 Potassium Chloride 20 meq AD PRN PO Last administered on 07/31/25at 08:15; Start 07/24/25 at 08:30; Stop 08/23/25 at 08:29 Potassium Chloride 20 meq AD PRN PO Last administered on 07/27/25at 20:33; Start 07/24/25 at 08:30; Stop 08/23/25 at 08:29 Hydromorphone HCl 0.5 mg Q4H PRN IVP Last administered on 07/29/25at 08:22; Start 07/24/25 at 10:00; Stop 07/29/25 at 09:59; Status DC Spironolactone 25 mg BID PO Last administered on 07/26/25at 08:56; Start 07/25/25 at 21:00; Stop 07/26/25 at 09:01; Status DC Albumin Human 100 ml @ 0 mls/hr ONCE ONCE IV Last administered on 07/25/25at 17:05; Start 07/25/25 at 10:30; Stop 07/25/25 at 10:31; Status DC Albumin Human 100 ml @ 0 mls/hr ONCE IV Last administered on 07/25/25at 13:43; Start 07/25/25 at 12:00; Stop 07/26/25 at 11:59; Status DC Cyclobenzaprine HCl 5 mg TID PO Last administered on 07/26/25at 14:19; Start 07/25/25 at 14:00; Stop 07/26/25 at 14:00; Status DC Furosemide 20 mg DAILY PO Last administered on 08/02/25at 09:42; Start 07/25/25 at 11:00; Stop 08/02/25 at 11:53; Status DC Pantoprazole Sodium 40 mg BID IV Last administered on 08/19/25at 20:16; Start 07/26/25 at 21:00; Stop 08/20/25 at 08:59; Status DC Psyllium Hydrophilic Mucilloid 1 tbs BID PO Last administered on 08/20/25at 09:25; Start 07/26/25 at 21:00; Stop 08/25/25 at 20:59 Lactobacillus Rhamnosus 1 each DAILY20 PO Last administered on 08/19/25at 20:16; Start 07/26/25 at 20:00; Stop 08/25/25 at 19:59 Iron Sucrose 200 mg ONCE ONCE IV Last administered on 07/26/25at 14:19; Start 07/26/25 at 14:00; Stop 07/26/25 at 14:01; Status DC Lidocaine 1 patch DAILY TP Last administered on 08/20/25at 09:26; Start 07/28/25 at 09:00; Stop 08/27/25 at 08:59 Simethicone 80 mg Q6H6 PO Last administered on 08/20/25at 13:00; Start 07/27/25 at 12:00; Stop 08/26/25 at 11:59 Acetaminophen 500 mg Q6H6 PRN PO; Start 07/27/25 at 16:30; Stop 08/07/25 at 12:15; Status DC Lidocaine 1 patch ONCE ONCE TP Last administered on 07/27/25at 19:25; Start 07/27/25 at 19:30; Stop 07/27/25 at 19:31; Status DC Albumin Human 50 ml @ 0 mls/hr AD ONCE IV Last administered on 07/28/25at 17:44; Start 07/28/25 at 15:30; Stop 07/28/25 at 15:31; Status DC Albumin Human 100 ml @ 0 mls/hr AD ONCE IV Last administered on 07/29/25at 14:26; Start 07/29/25 at 12:30; Stop 07/29/25 at 12:31; Status DC Hydromorphone HCl 0.5 mg Q4H PRN IVP Last administered on 08/03/25at 13:09; Start 07/29/25 at 13:30; Stop 08/03/25 at 13:29; Status DC Gabapentin 100 mg TID PO Last administered on 08/01/25at 20:14; Start 07/29/25 at 14:00; Stop 08/02/25 at 09:21; Status DC Clotrimazole 1 GM BID TP Last administered on 08/20/25at 09:26; Start 07/29/25 at 21:00; Stop 08/28/25 at 20:59 Sucralfate 1 gm ACHS PO Last administered on 08/20/25at 13:00; Start 07/29/25 at 21:00; Stop 08/28/25 at 20:59 Piperacillin Sod/ Tazobactam Sod 3.375 gm Q8H IVPB Last administered on 08/10/25at 04:05; Start 07/31/25 at 11:30; Stop 08/10/25 at 11:29; Status DC Sodium Chloride 50 ml AD IV; Start 07/31/25 at 11:30; Stop 07/31/25 at 11:12; Status DC Iron Sucrose 300 mg/Sodium Chloride 250 ml @ 83 mls/hr ONCE ONCE IV Last administered on 07/31/25at 13:36; Start 07/31/25 at 12:00; Stop 07/31/25 at 15:00; Status DC Fentanyl 25 mcg Q72H TD; Start 07/31/25 at 14:30; Stop 07/31/25 at 14:44; Status DC Acetaminophen/ Hydrocodone Bitart 1 tab Q4H PRN PO Last administered on 08/05/25at 14:57; Start 07/31/25 at 16:30; Stop 08/05/25 at 16:29; Status DC Chromium/Copper/ Manganese/Zinc 3 ml/Multivitamins/ Minerals 10 ml/ Amino Acids/ Electrolytes/ Dextrose 2,000 ml @ 80 mls/hr ONCE ONCE IV Last administered on 08/01/25at 20:25; Start 08/01/25 at 20:00; Stop 08/02/25 at 20:59; Status DC Albumin Human 100 ml @ 0 mls/hr AD ONCE IV Last administered on 08/02/25at 09:41; Start 08/02/25 at 09:30; Stop 08/02/25 at 09:33; Status DC Lidocaine HCl 20 ml STK-MED ONCE .ROUTE; Start 08/02/25 at 11:24; Stop 08/02/25 at 11:24; Status DC Iohexol 50 ml STK-MED ONCE IV; Start 08/02/25 at 11:24; Stop 08/02/25 at 11:25; Status DC Estrogens Conjugated 1 appl ONCE ONCE VG; Start 08/02/25 at 12:00; Stop 08/02/25 at 12:01; Status DC Fentanyl Citrate 100 mcg STK-MED ONCE .ROUTE; Start 08/02/25 at 11:53; Stop 08/02/25 at 11:53; Status DC Midazolam HCl 2 mg STK-MED ONCE .ROUTE; Start 08/02/25 at 11:54; Stop 08/02/25 at 11:54; Status DC Midazolam HCl 2 mg STK-MED ONCE .ROUTE; Start 08/02/25 at 12:15; Stop 08/02/25 at 12:16; Status DC Multivitamins/ Minerals 10 ml/ Chromium/Copper/ Manganese/Zinc 3 ml/Amino Acids/ Electrolytes/ Dextrose 2,000 ml @ 80 mls/hr ONCE ONCE IV Last administered on 08/02/25at 21:08; Start 08/02/25 at 20:00; Stop 08/03/25 at 18:39; Status DC Estrogens Conjugated 1 appl ONCE ONCE VG Last administered on 08/02/25at 18:47; Start 08/02/25 at 18:30; Stop 08/02/25 at 18:31; Status DC Albumin Human 50 ml @ 0 mls/hr Q12H IV; Start 08/02/25 at 18:30; Stop 08/02/25 at 20:04; Status DC Albumin Human 50 ml @ 100 mls/hr Q12H IV Last administered on 08/05/25at 10:12; Start 08/02/25 at 21:30; Stop 08/05/25 at 09:59; Status DC Hydromorphone HCl 0.5 mg Q4H PRN IVP Last administered on 08/07/25at 05:09; Start 08/03/25 at 18:00; Stop 08/07/25 at 10:03; Status DC Chromium/Copper/ Manganese/Zinc 3 ml/Multivitamins/ Minerals 10 ml/ Amino Acids/ Electrolytes/ Dextrose 2,000 ml @ 80 mls/hr ONCE ONCE IV Last administered on 08/03/25at 21:51; Start 08/03/25 at 20:00; Stop 08/04/25 at 12:47; Status DC Chromium/Copper/ Manganese/Zinc 3 ml/Multivitamins/ Minerals 10 ml/ Amino Acids/ Electrolytes/ Dextrose 2,000 ml @ 80 mls/hr ONCE ONCE IV Last administered on 08/04/25at 21:54; Start 08/04/25 at 21:00; Stop 08/05/25 at 21:59; Status DC Metoclopramide HCl 5 mg BID IVP Last administered on 08/20/25at 09:25; Start 08/04/25 at 21:00; Stop 09/03/25 at 20:59 Iohexol 75 ml STK-MED ONCE IV; Start 08/04/25 at 14:27; Stop 08/04/25 at 14:26; Status DC Propofol 200 mg STK-MED ONCE IV; Start 08/05/25 at 12:54; Stop 08/05/25 at 12:54; Status DC Lidocaine HCl 100 mg STK-MED ONCE .ROUTE; Start 08/05/25 at 12:54; Stop 08/05/25 at 12:55; Status DC Pantoprazole Sodium 40 mg BID IVP Last administered on 08/05/25at 20:25; Start 08/05/25 at 21:00; Stop 08/06/25 at 08:39; Status DC Multivitamins/ Minerals 10 ml/ Amino Acids/ Electrolytes/ Dextrose 2,000 ml @ 80 mls/hr ONCE ONCE IV Last administered on 08/06/25at 04:53; Start 08/06/25 at 05:00; Stop 08/07/25 at 05:59; Status DC Pharmacy Profile Note 1 each ONCE MISC; Start 08/06/25 at 16:00; Stop 08/07/25 at 07:07; Status DC Lidocaine HCl/Al Hydroxide/Mg Hydroxide/ Dicyclomine HCl 20ML OR AD ONCE PO Last administered on 08/06/25at 16:45; Start 08/06/25 at 16:30; Stop 08/07/25 at 16:29; Status DC Multivitamins/ Minerals 10 ml/ Amino Acids/ Electrolytes/ Dextrose 2,000 ml @ 80 mls/hr ONCE ONCE IV; Start 08/07/25 at 07:00; Stop 08/07/25 at 06:32; Status DC Multivitamins/ Minerals 10 ml/ Chromium/Copper/ Manganese/Zinc 3 ml/Amino Acids/ Electrolytes/ Dextrose 2,000 ml @ 80 mls/hr ONCE ONCE IV Last administered on 08/07/25at 06:41; Start 08/07/25 at 07:00; Stop 08/08/25 at 04:36; Status DC Acetaminophen 500 mg Q6H6 PRN PO; Start 08/07/25 at 10:00; Stop 08/07/25 at 10:03; Status DC Hydromorphone HCl 0.5 mg Q4H PRN IVP Last administered on 08/10/25at 20:27; Start 08/07/25 at 10:00; Stop 08/11/25 at 10:32; Status DC Acetaminophen/ Hydrocodone Bitart 1 tab Q4H PRN PO Last administered on 08/12/25at 00:46; Start 08/07/25 at 12:30; Stop 08/12/25 at 12:29; Status DC Chromium/Copper/ Manganese/Zinc 3 ml/Amino Acids/ Electrolytes/ Dextrose 2,000 ml @ 80 mls/hr ONCE ONCE IV; Start 08/08/25 at 05:00; Stop 08/08/25 at 04:59; Status DC Chromium/Copper/ Manganese/Zinc 3 ml/Amino Acids/ Electrolytes/ Dextrose 2,000 ml @ 80 mls/hr ONCE ONCE IV Last administered on 08/08/25at 05:51; Start 08/08/25 at 07:00; Stop 08/09/25 at 05:18; Status DC Chromium/Copper/ Manganese/Zinc 3 ml/Amino Acids/ Electrolytes/ Dextrose 2,000 ml @ 80 mls/hr ONCE ONCE IV Last administered on 08/09/25at 06:11; Start 08/09/25 at 07:00; Stop 08/10/25 at 07:59; Status DC Lidocaine HCl 50 ml STK-MED ONCE .ROUTE; Start 08/09/25 at 09:59; Stop 08/09/25 at 09:59; Status DC Iohexol 50 ml STK-MED ONCE IV; Start 08/09/25 at 09:59; Stop 08/09/25 at 09:59; Status DC Sodium Chloride 10 ml Q8H IJ Last administered on 08/20/25at 11:00; Start 08/09/25 at 11:00; Stop 09/08/25 at 10:59 Fentanyl 12 mcg Q72H TD; Start 08/09/25 at 13:00; Stop 08/09/25 at 15:19; Status DC Fentanyl Citrate 100 mcg STK-MED ONCE .ROUTE Last administered on 08/09/25at 16:15; Start 08/09/25 at 13:17; Stop 08/09/25 at 13:17; Status DC Midazolam HCl 2 mg STK-MED ONCE .ROUTE Last administered on 08/09/25at 16:15; Start 08/09/25 at 13:17; Stop 08/09/25 at 13:18; Status DC Fentanyl 12 mcg Q72H TD Last administered on 08/09/25at 15:38; Start 08/09/25 at 15:30; Stop 08/11/25 at 10:32; Status DC Chromium/Copper/ Manganese/Zinc 3 ml/Multivitamins/ Minerals 10 ml/ Amino Acids/ Electrolytes/ Dextrose 2,000 ml @ 80 mls/hr ONCE ONCE IV Last administered on 08/10/25at 09:54; Start 08/10/25 at 08:30; Stop 08/11/25 at 09:29; Status DC Piperacillin Sod/ Tazobactam Sod 3.375 gm Q8H IVPB Last administered on 08/20/25at 04:32; Start 08/10/25 at 13:00; Stop 08/20/25 at 12:59; Status DC Fentanyl 25 mcg Q72H TD; Start 08/12/25 at 15:30; Stop 08/12/25 at 16:00; Status DC Hydromorphone HCl 0.5 mg Q6H PRN IVP Last administered on 08/15/25at 16:03; Start 08/11/25 at 11:00; Stop 08/16/25 at 10:59; Status DC Methocarbamol 500 mg BID PO Last administered on 08/20/25at 09:24; Start 08/11/25 at 16:00; Stop 09/10/25 at 15:59 Gabapentin 100 mg TID PO Last administered on 08/20/25at 12:59; Start 08/11/25 at 21:00; Stop 09/10/25 at 20:59 Multivitamins/ Minerals 10 ml/ Chromium/Copper/ Manganese/Zinc 3 ml/Amino Acids/ Electrolytes/ Dextrose 2,000 ml @ 80 mls/hr ONCE ONCE IV Last administered on 08/12/25at 22:38; Start 08/12/25 at 20:00; Stop 08/13/25 at 11:49; Status DC Fat Emulsion Intravenous 250 ml @ 42 mls/hr DAILY10 IV Last administered on 08/18/25at 09:57; Start 08/13/25 at 10:00; Stop 08/19/25 at 10:44; Status DC Fentanyl 25 mcg Q72H TD Last administered on 08/16/25at 00:02; Start 08/12/25 at 21:00; Stop 08/17/25 at 20:59; Status DC Acetaminophen/ Hydrocodone Bitart 1 tab Q4H PRN PO Last administered on 08/17/25at 10:17; Start 08/12/25 at 16:30; Stop 08/17/25 at 16:29; Status DC Home Med HS TD; Start 08/12/25 at 21:00; Stop 09/11/25 at 20:59 Multivitamins/ Minerals 10 ml/ Chromium/Copper/ Manganese/Zinc 3 ml/Amino Acids/ Electrolytes/ Dextrose 2,000 ml @ 80 mls/hr ONCE ONCE IV Last administered on 08/13/25at 20:15; Start 08/13/25 at 20:00; Stop 08/14/25 at 11:29; Status DC Multivitamins/ Minerals 10 ml/ Amino Acids/ Electrolytes/ Dextrose 2,000 ml @ 80 mls/hr ONCE ONCE IV Last administered on 08/14/25at 21:37; Start 08/14/25 at 20:00; Stop 08/15/25 at 20:59; Status DC Duloxetine HCl 30 mg BID PO Last administered on 08/20/25at 09:23; Start 08/15/25 at 21:00; Stop 09/14/25 at 20:59 Ketorolac Tromethamine 15 mg Q8H PRN IM Last administered on 08/16/25at 00:01; Start 08/15/25 at 18:30; Stop 08/16/25 at 06:57; Status DC Pharmacy Profile Note 1 each ONCE MISC; Start 08/16/25 at 16:00; Stop 08/15/25 at 21:12; Status DC Multivitamins/ Minerals 10 ml/ Amino Acids/ Electrolytes/ Dextrose 2,000 ml @ 80 mls/hr ONCE ONCE IV Last administered on 08/15/25at 23:25; Start 08/15/25 at 21:00; Stop 08/16/25 at 13:13; Status DC Amino Acids/ Electrolytes/ Dextrose 2,000 ml @ 80 mls/hr ONCE ONCE IV; Start 08/16/25 at 13:30; Stop 08/17/25 at 01:21; Status DC Ondansetron HCl 4 mg Q6H IVP Last administered on 08/20/25at 12:59; Start 08/16/25 at 18:00; Stop 09/15/25 at 17:59 Amino Acids/ Electrolytes/ Dextrose 2,000 ml @ 40 mls/hr ONCE ONCE IV Last administered on 08/17/25at 01:40; Start 08/17/25 at 01:30; Stop 08/19/25 at 10:44; Status DC Acetaminophen/ Hydrocodone Bitart 1 tab Q6H PRN PO Last administered on 08/20/25at 06:14; Start 08/17/25 at 21:30; Stop 08/22/25 at 21:29 BENEDICTO OBRIEN Jr. PAC Aug 20, 2025 16:43
[2025-08-20 19:20] VITALS: O2SAT 97
[2025-08-20 20:00] VITALS: BP 130/74; PULSE 90; RESP 18; TEMP 97.9
[2025-08-20] MEDS ORDERED: 0.9%NACL 50ML IV SCH (22:30)
[2025-08-20] MEDS: ZOSYN 3.375GM +NS 50ML IVPB SCH (23:55)
[2025-08-21] VITALS (7 sets, daily range): BP systolic 115–127; BP diastolic 73–79; PULSE 89–103; RESP 16–19; TEMP 97.8–98.2; O2SAT 94–96
[2025-08-21 03:56] LABS: NUCLEATED RED BLOOD CELLS 0.0 % (0.0-0.19); PLATELET COUNT (AUTO) 234.0 K/uL (130-400); RED BLOOD CELL COUNT(AUTO) 3.85 MIL/uL (4.00-5.50); RED CELL DISTRIBUTION WIDTH 17.2 % (11.0-15.5); WHITE BLOOD COUNT (AUTO) 6.1 K/uL (4.8-10.8)
[2025-08-21 04:08] LABS: CREATININE 0.8 mg/dL (0.5-1.0); GLOMERULAR FILTR. RATE CALC 86.0 mL/min (>90); GLUCOSE,RANDOM 96.0 mg/dL (70-105); SODIUM SERUM 127.0 mmol/L (136-145); UREA NITROGEN, BLOOD 13.0 mg/dL (7-18)
--- NOTE | 2025-08-21 09:56 | PN ---
This is a 55-year-old female status post laparoscopic washout and loop ileostomy Interval history: This 55-year-old female seen in her room resting Patient is off TPN Patient tolerating diet with a little appetite but slightly increasing Ostomy functioning properly Physical exam General: Awake alert and oriented Heart: Regular rate and rhythm} Lungs: Clear to auscultation no distress Abdomen: [Soft, nontender, nondistended ostomy functioning properly Assessment : This is a 55-year-old female status post laparoscopic washout and loop ileostomy Plan: From surgical standpoint plan will be for abscessogram for possible percutaneous drain removal on Saturday Continue with diet as tolerated Continue with the IV fluids and IV antibiotics No further surgical intervention likely at this time Dr. Gann to be updated on patient's status Surgical case has been discussed with my supervising physician in the above plan was formulated and agreed upon We appreciate the hospitalist team for us to participate in patient's care. Greater than 45 minutes of time spent patient, reviewing chart, working on documentation Vitals/Labs Vital Signs Date Time Temp Pulse Resp B/P (MAP) Pulse Ox O2 Delivery O2 Flow Rate FiO2 08/21/25 08:50 98.1 89 16 120/74 94 Room Air 08/20/25 19:20 0 21 Laboratory Tests 08/21/25 03:47 Medications Current Medications Sodium Chloride 1,000 ml @ 0 mls/hr ONCE ONCE IV; Start 07/20/25 at 18:30; Stop 07/20/25 at 18:31; Status DC Piperacillin Sod/ Tazobactam Sod 50 ml @ 200 mls/hr ONCE STAT IVPB Last administered on 07/20/25at 20:32; Start 07/20/25 at 19:15; Stop 07/20/25 at 19:29; Status DC Sodium Chloride 2,109 ml @ 703 mls/hr ONCE ONCE IV Last administered on 07/20/25at 20:28; Start 07/20/25 at 19:30; Stop 07/20/25 at 22:29; Status DC Iohexol 75 ml STK-MED ONCE IV; Start 07/20/25 at 20:31; Stop 07/20/25 at 20:31; Status DC Vancomycin HCl 1 gm ONCE STAT IV Last administered on 07/20/25at 22:06; Start 07/20/25 at 21:23; Stop 07/20/25 at 21:26; Status DC Morphine Sulfate 4 mg ONCE ONCE IVP Last administered on 07/20/25at 23:15; Start 07/20/25 at 23:30; Stop 07/20/25 at 23:31; Status DC Ondansetron HCl 4 mg ONCE ONCE IVP Last administered on 07/20/25at 23:14; Start 07/20/25 at 23:30; Stop 07/20/25 at 23:31; Status DC Norepinephrine 250 ml @ 0 mls/hr PROTOCOL IV Last administered on 07/21/25at 10:56; Start 07/20/25 at 23:30; Stop 08/03/25 at 08:27; Status DC Piperacillin Sod/ Tazobactam Sod 3.375 gm Q12H IV Last administered on 07/30/25at 23:55; Start 07/21/25 at 00:00; Stop 07/31/25 at 00:00; Status DC Acetaminophen 650 mg Q6H PRN RC; Start 07/21/25 at 00:00; Stop 07/27/25 at 16:22; Status DC Pantoprazole Sodium 40 mg DAILY IV Last administered on 07/26/25at 08:55; Start 07/21/25 at 09:00; Stop 07/26/25 at 09:31; Status DC Ondansetron HCl 4 mg Q6H PRN IV; Start 07/21/25 at 00:00; Stop 07/21/25 at 13:18; Status DC Morphine Sulfate 2 mg Q4H PRN IVP Last administered on 07/21/25at 04:46; Start 07/21/25 at 00:30; Stop 07/21/25 at 13:18; Status DC Lactated Ringer's 1,000 ml @ 75 mls/hr [id number] IV Last administered on 07/21/25at 02:57; Start 07/21/25 at 00:00; Stop 07/21/25 at 13:17; Status DC Insulin Human Regular INSULIN SLIDING SCAL... ACHS SQ Last administered on 08/18/25at 17:31; Start 07/21/25 at 07:30; Stop 08/20/25 at 07:29; Status DC Vasopressin 20 units/Sodium Chloride 100 ml @ 0 mls/hr PROTOCOL IV Last administered on 07/21/25at 00:10; Start 07/21/25 at 00:30; Stop 08/03/25 at 08:27; Status DC Vasopressin 20 units STK-MED ONCE .ROUTE; Start 07/21/25 at 00:10; Stop 07/21/25 at 00:11; Status DC Magnesium Sulfate 50 ml @ 0 mls/hr PROTOCOL PRN IV Last administered on 08/01/25at 06:05; Start 07/21/25 at 07:00; Stop 08/20/25 at 06:59; Status DC Acetaminophen 100 ml @ As Directed STK-MED ONCE .ROUTE; Start 07/21/25 at 09:42; Stop 07/21/25 at 09:42; Status DC Famotidine 20 mg STK-MED ONCE IV; Start 07/21/25 at 09:42; Stop 07/21/25 at 09:42; Status DC Albumin Human 500 ml @ As Directed STK-MED ONCE IV; Start 07/21/25 at 09:45; Stop 07/21/25 at 09:45; Status DC Phenylephrine HCl 10 mg STK-MED ONCE IV; Start 07/21/25 at 09:48; Stop 07/21/25 at 09:48; Status DC Dexamethasone Sodium Phosphate 10 mg STK-MED ONCE .ROUTE; Start 07/21/25 at 09:52; Stop 07/21/25 at 09:52; Status DC Ondansetron HCl 4 mg STK-MED ONCE .ROUTE; Start 07/21/25 at 09:52; Stop 07/21/25 at 09:52; Status DC Lidocaine HCl 100 mg STK-MED ONCE .ROUTE; Start 07/21/25 at 09:52; Stop 07/21/25 at 09:52; Status DC Succinylcholine Chloride 200 mg STK-MED ONCE .ROUTE; Start 07/21/25 at 09:53; Stop 07/21/25 at 09:53; Status DC Glycopyrrolate 1 mg STK-MED ONCE .ROUTE; Start 07/21/25 at 09:53; Stop 07/21/25 at 09:53; Status DC Fentanyl Citrate 100 mcg STK-MED ONCE .ROUTE; Start 07/21/25 at 09:54; Stop 07/21/25 at 09:54; Status DC Propofol 200 mg STK-MED ONCE IV; Start 07/21/25 at 09:54; Stop 07/21/25 at 09:54; Status DC Neostigmine Methylsulfate 10 mg STK-MED ONCE IV; Start 07/21/25 at 09:54; Stop 07/21/25 at 09:54; Status DC Rocuronium [place] 50 mg STK-MED ONCE .ROUTE; Start 07/21/25 at 09:54; Stop 07/21/25 at 09:54; Status DC Ketamine HCl 50 mg STK-MED ONCE .ROUTE; Start 07/21/25 at 09:55; Stop 07/21/25 at 09:56; Status DC Epinephrine HCl 1 mg STK-MED ONCE .ROUTE; Start 07/21/25 at 10:03; Stop 07/21/25 at 10:03; Status DC Midazolam HCl 2 mg STK-MED ONCE .ROUTE; Start 07/21/25 at 10:05; Stop 07/21/25 at 10:05; Status DC Indocyanine Green 25 mg STK-MED ONCE IJ; Start 07/21/25 at 10:49; Stop 07/21/25 at 10:49; Status DC Ephedrine Sulfate 50 mg STK-MED ONCE .ROUTE; Start 07/21/25 at 11:17; Stop 07/21/25 at 11:17; Status DC Bupivacaine HCl 5 mg STK-MED ONCE .ROUTE Last administered on 07/21/25at 12:14; Start 07/21/25 at 11:49; Stop 07/21/25 at 11:49; Status DC Sodium Bicarbonate 200 ml @ As Directed STK-MED ONCE .ROUTE; Start 07/21/25 at 12:19; Stop 07/21/25 at 12:19; Status DC Fentanyl Citrate 100 mcg STK-MED ONCE .ROUTE; Start 07/21/25 at 12:23; Stop 07/21/25 at 12:23; Status DC Phytonadione 10 mg STK-MED ONCE .ROUTE; Start 07/21/25 at 13:05; Stop 07/21/25 at 13:05; Status DC Lactated Ringer's 1,000 ml @ 75 mls/hr [id number] IV Last administered on 07/24/25at 09:27; Start 07/21/25 at 13:30; Stop 07/24/25 at 11:09; Status DC Morphine Sulfate 4 mg Q3H PRN IV Last administered on 07/26/25at 10:51; Start 07/21/25 at 13:30; Stop 07/26/25 at 16:29; Status DC Ondansetron HCl 4 mg Q4H PRN IVP Last administered on 08/16/25at 10:23; Start 07/21/25 at 13:30; Stop 08/16/25 at 17:50; Status DC Fentanyl Citrate 100 mcg STK-MED ONCE .ROUTE; Start 07/21/25 at 13:26; Stop 07/21/25 at 13:26; Status DC Sodium Bicarbonate 150 meq/Sodium Chloride 1,150 ml @ 0 mls/hr Q0M IVP; Start 07/21/25 at 14:00; Stop 07/26/25 at 09:31; Status DC Sodium Bicarbonate 100 meq ONCE ONCE IV; Start 07/21/25 at 14:00; Stop 07/21/25 at 14:23; Status DC Metronidazole/ Sodium Chloride 500 mg Q8H IV; Start 07/21/25 at 14:00; Stop 07/21/25 at 13:40; Status DC Fluconazole/ Sodium Chloride 200 mg Q24H IVPB Last administered on 08/19/25at 20:18; Start 07/21/25 at 21:00; Stop 08/20/25 at 20:59; Status DC Pharmacy Profile Note 1 each ONCE MISC; Start 07/21/25 at 15:30; Stop 07/21/25 at 15:16; Status DC Thiamine HCl 100 mg/Sodium Chloride 50 ml @ 100 mls/hr Q24H IM; Start 07/21/25 at 15:30; Stop 07/21/25 at 16:25; Status DC Sodium Bicarbonate 100 meq ONCE ONCE IV Last administered on 07/21/25at 16:42; Start 07/21/25 at 16:30; Stop 07/21/25 at 16:31; Status DC Thiamine HCl 100 mg DAILY IVP Last administered on 08/21/25at 08:15; Start 07/22/25 at 21:00; Stop 08/21/25 at 20:59 Diatrizoate Meglum/ Diatrizoate Sod 30 ml STK-MED ONCE .ROUTE; Start 07/23/25 at 15:13; Stop 07/23/25 at 15:13; Status DC Potassium Chloride 100 ml @ 100 mls/hr AD PRN IV Last administered on 07/30/25at 06:23; Start 07/24/25 at 08:30; Stop 08/23/25 at 08:29 Potassium Chloride 20 meq AD PRN PO Last administered on 07/31/25at 08:15; Start 07/24/25 at 08:30; Stop 08/23/25 at 08:29 Potassium Chloride 20 meq AD PRN PO Last administered on 07/27/25at 20:33; Start 07/24/25 at 08:30; Stop 08/23/25 at 08:29 Hydromorphone HCl 0.5 mg Q4H PRN IVP Last administered on 07/29/25at 08:22; Start 07/24/25 at 10:00; Stop 07/29/25 at 09:59; Status DC Spironolactone 25 mg BID PO Last administered on 07/26/25at 08:56; Start 07/25/25 at 21:00; Stop 07/26/25 at 09:01; Status DC Albumin Human 100 ml @ 0 mls/hr ONCE ONCE IV Last administered on 07/25/25at 17:05; Start 07/25/25 at 10:30; Stop 07/25/25 at 10:31; Status DC Albumin Human 100 ml @ 0 mls/hr ONCE IV Last administered on 07/25/25at 13:43; Start 07/25/25 at 12:00; Stop 07/26/25 at 11:59; Status DC Cyclobenzaprine HCl 5 mg TID PO Last administered on 07/26/25at 14:19; Start 07/25/25 at 14:00; Stop 07/26/25 at 14:00; Status DC Furosemide 20 mg DAILY PO Last administered on 08/02/25at 09:42; Start 07/25/25 at 11:00; Stop 08/02/25 at 11:53; Status DC Pantoprazole Sodium 40 mg BID IV Last administered on 08/19/25at 20:16; Start 07/26/25 at 21:00; Stop 08/20/25 at 08:59; Status DC Psyllium Hydrophilic Mucilloid 1 tbs BID PO Last administered on 08/21/25at 08:16; Start 07/26/25 at 21:00; Stop 08/25/25 at 20:59 Lactobacillus Rhamnosus 1 each DAILY20 PO Last administered on 08/20/25at 20:08; Start 07/26/25 at 20:00; Stop 08/25/25 at 19:59 Iron Sucrose 200 mg ONCE ONCE IV Last administered on 07/26/25at 14:19; Start 07/26/25 at 14:00; Stop 07/26/25 at 14:01; Status DC Lidocaine 1 patch DAILY TP Last administered on 08/21/25at 08:17; Start 07/28/25 at 09:00; Stop 08/27/25 at 08:59 Simethicone 80 mg Q6H6 PO Last administered on 08/21/25at 06:05; Start 07/27/25 at 12:00; Stop 08/26/25 at 11:59 Acetaminophen 500 mg Q6H6 PRN PO; Start 07/27/25 at 16:30; Stop 08/07/25 at 12:15; Status DC Lidocaine 1 patch ONCE ONCE TP Last administered on 07/27/25at 19:25; Start 07/27/25 at 19:30; Stop 07/27/25 at 19:31; Status DC Albumin Human 50 ml @ 0 mls/hr AD ONCE IV Last administered on 07/28/25at 17:44; Start 07/28/25 at 15:30; Stop 07/28/25 at 15:31; Status DC Albumin Human 100 ml @ 0 mls/hr AD ONCE IV Last administered on 07/29/25at 14:26; Start 07/29/25 at 12:30; Stop 07/29/25 at 12:31; Status DC Hydromorphone HCl 0.5 mg Q4H PRN IVP Last administered on 08/03/25at 13:09; Start 07/29/25 at 13:30; Stop 08/03/25 at 13:29; Status DC Gabapentin 100 mg TID PO Last administered on 08/01/25at 20:14; Start 07/29/25 at 14:00; Stop 08/02/25 at 09:21; Status DC Clotrimazole 1 GM BID TP Last administered on 08/20/25at 21:00; Start 07/29/25 at 21:00; Stop 08/28/25 at 20:59 Sucralfate 1 gm ACHS PO Last administered on 08/21/25at 06:05; Start 07/29/25 at 21:00; Stop 08/28/25 at 20:59 Piperacillin Sod/ Tazobactam Sod 3.375 gm Q8H IVPB Last administered on 08/10/25at 04:05; Start 07/31/25 at 11:30; Stop 08/10/25 at 11:29; Status DC Sodium Chloride 50 ml AD IV; Start 07/31/25 at 11:30; Stop 07/31/25 at 11:12; Status DC Iron Sucrose 300 mg/Sodium Chloride 250 ml @ 83 mls/hr ONCE ONCE IV Last administered on 07/31/25at 13:36; Start 07/31/25 at 12:00; Stop 07/31/25 at 15:00; Status DC Fentanyl 25 mcg Q72H TD; Start 07/31/25 at 14:30; Stop 07/31/25 at 14:44; Status DC Acetaminophen/ Hydrocodone Bitart 1 tab Q4H PRN PO Last administered on 08/05/25at 14:57; Start 07/31/25 at 16:30; Stop 08/05/25 at 16:29; Status DC Chromium/Copper/ Manganese/Zinc 3 ml/Multivitamins/ Minerals 10 ml/ Amino Acids/ Electrolytes/ Dextrose 2,000 ml @ 80 mls/hr ONCE ONCE IV Last administered on 08/01/25at 20:25; Start 08/01/25 at 20:00; Stop 08/02/25 at 20:59; Status DC Albumin Human 100 ml @ 0 mls/hr AD ONCE IV Last administered on 08/02/25at 09:41; Start 08/02/25 at 09:30; Stop 08/02/25 at 09:33; Status DC Lidocaine HCl 20 ml STK-MED ONCE .ROUTE; Start 08/02/25 at 11:24; Stop 08/02/25 at 11:24; Status DC Iohexol 50 ml STK-MED ONCE IV; Start 08/02/25 at 11:24; Stop 08/02/25 at 11:25; Status DC Estrogens Conjugated 1 appl ONCE ONCE VG; Start 08/02/25 at 12:00; Stop 08/02/25 at 12:01; Status DC Fentanyl Citrate 100 mcg STK-MED ONCE .ROUTE; Start 08/02/25 at 11:53; Stop 08/02/25 at 11:53; Status DC Midazolam HCl 2 mg STK-MED ONCE .ROUTE; Start 08/02/25 at 11:54; Stop 08/02/25 at 11:54; Status DC Midazolam HCl 2 mg STK-MED ONCE .ROUTE; Start 08/02/25 at 12:15; Stop 08/02/25 at 12:16; Status DC Multivitamins/ Minerals 10 ml/ Chromium/Copper/ Manganese/Zinc 3 ml/Amino Acids/ Electrolytes/ Dextrose 2,000 ml @ 80 mls/hr ONCE ONCE IV Last administered on 08/02/25at 21:08; Start 08/02/25 at 20:00; Stop 08/03/25 at 18:39; Status DC Estrogens Conjugated 1 appl ONCE ONCE VG Last administered on 08/02/25at 18:47; Start 08/02/25 at 18:30; Stop 08/02/25 at 18:31; Status DC Albumin Human 50 ml @ 0 mls/hr Q12H IV; Start 08/02/25 at 18:30; Stop 08/02/25 at 20:04; Status DC Albumin Human 50 ml @ 100 mls/hr Q12H IV Last administered on 08/05/25at 10:12; Start 08/02/25 at 21:30; Stop 08/05/25 at 09:59; Status DC Hydromorphone HCl 0.5 mg Q4H PRN IVP Last administered on 08/07/25at 05:09; Start 08/03/25 at 18:00; Stop 08/07/25 at 10:03; Status DC Chromium/Copper/ Manganese/Zinc 3 ml/Multivitamins/ Minerals 10 ml/ Amino Acids/ Electrolytes/ Dextrose 2,000 ml @ 80 mls/hr ONCE ONCE IV Last administered on 08/03/25at 21:51; Start 08/03/25 at 20:00; Stop 08/04/25 at 12:47; Status DC Chromium/Copper/ Manganese/Zinc 3 ml/Multivitamins/ Minerals 10 ml/ Amino Acids/ Electrolytes/ Dextrose 2,000 ml @ 80 mls/hr ONCE ONCE IV Last administered on 08/04/25at 21:54; Start 08/04/25 at 21:00; Stop 08/05/25 at 21:59; Status DC Metoclopramide HCl 5 mg BID IVP Last administered on 08/21/25at 08:16; Start 08/04/25 at 21:00; Stop 09/03/25 at 20:59 Iohexol 75 ml STK-MED ONCE IV; Start 08/04/25 at 14:27; Stop 08/04/25 at 14:26; Status DC Propofol 200 mg STK-MED ONCE IV; Start 08/05/25 at 12:54; Stop 08/05/25 at 12:54; Status DC Lidocaine HCl 100 mg STK-MED ONCE .ROUTE; Start 08/05/25 at 12:54; Stop 08/05/25 at 12:55; Status DC Pantoprazole Sodium 40 mg BID IVP Last administered on 08/05/25at 20:25; Start 08/05/25 at 21:00; Stop 08/06/25 at 08:39; Status DC Multivitamins/ Minerals 10 ml/ Amino Acids/ Electrolytes/ Dextrose 2,000 ml @ 80 mls/hr ONCE ONCE IV Last administered on 08/06/25at 04:53; Start 08/06/25 at 05:00; Stop 08/07/25 at 05:59; Status DC Pharmacy Profile Note 1 each ONCE MISC; Start 08/06/25 at 16:00; Stop 08/07/25 at 07:07; Status DC Lidocaine HCl/Al Hydroxide/Mg Hydroxide/ Dicyclomine HCl 20ML OR AD ONCE PO Last administered on 08/06/25at 16:45; Start 08/06/25 at 16:30; Stop 08/07/25 at 16:29; Status DC Multivitamins/ Minerals 10 ml/ Amino Acids/ Electrolytes/ Dextrose 2,000 ml @ 80 mls/hr ONCE ONCE IV; Start 08/07/25 at 07:00; Stop 08/07/25 at 06:32; Status DC Multivitamins/ Minerals 10 ml/ Chromium/Copper/ Manganese/Zinc 3 ml/Amino Acids/ Electrolytes/ Dextrose 2,000 ml @ 80 mls/hr ONCE ONCE IV Last administered on 08/07/25at 06:41; Start 08/07/25 at 07:00; Stop 08/08/25 at 04:36; Status DC Acetaminophen 500 mg Q6H6 PRN PO; Start 08/07/25 at 10:00; Stop 08/07/25 at 10:03; Status DC Hydromorphone HCl 0.5 mg Q4H PRN IVP Last administered on 08/10/25at 20:27; Start 08/07/25 at 10:00; Stop 08/11/25 at 10:32; Status DC Acetaminophen/ Hydrocodone Bitart 1 tab Q4H PRN PO Last administered on 08/12/25at 00:46; Start 08/07/25 at 12:30; Stop 08/12/25 at 12:29; Status DC Chromium/Copper/ Manganese/Zinc 3 ml/Amino Acids/ Electrolytes/ Dextrose 2,000 ml @ 80 mls/hr ONCE ONCE IV; Start 08/08/25 at 05:00; Stop 08/08/25 at 04:59; Status DC Chromium/Copper/ Manganese/Zinc 3 ml/Amino Acids/ Electrolytes/ Dextrose 2,000 ml @ 80 mls/hr ONCE ONCE IV Last administered on 08/08/25at 05:51; Start 08/08/25 at 07:00; Stop 08/09/25 at 05:18; Status DC Chromium/Copper/ Manganese/Zinc 3 ml/Amino Acids/ Electrolytes/ Dextrose 2,000 ml @ 80 mls/hr ONCE ONCE IV Last administered on 08/09/25at 06:11; Start 08/09/25 at 07:00; Stop 08/10/25 at 07:59; Status DC Lidocaine HCl 50 ml STK-MED ONCE .ROUTE; Start 08/09/25 at 09:59; Stop 08/09/25 at 09:59; Status DC Iohexol 50 ml STK-MED ONCE IV; Start 08/09/25 at 09:59; Stop 08/09/25 at 09:59; Status DC Sodium Chloride 10 ml Q8H IJ Last administered on 08/21/25at 03:00; Start 08/09/25 at 11:00; Stop 09/08/25 at 10:59 Fentanyl 12 mcg Q72H TD; Start 08/09/25 at 13:00; Stop 08/09/25 at 15:19; Status DC Fentanyl Citrate 100 mcg STK-MED ONCE .ROUTE Last administered on 08/09/25at 16:15; Start 08/09/25 at 13:17; Stop 08/09/25 at 13:17; Status DC Midazolam HCl 2 mg STK-MED ONCE .ROUTE Last administered on 08/09/25at 16:15; Start 08/09/25 at 13:17; Stop 08/09/25 at 13:18; Status DC Fentanyl 12 mcg Q72H TD Last administered on 08/09/25at 15:38; Start 08/09/25 at 15:30; Stop 08/11/25 at 10:32; Status DC Chromium/Copper/ Manganese/Zinc 3 ml/Multivitamins/ Minerals 10 ml/ Amino Acids/ Electrolytes/ Dextrose 2,000 ml @ 80 mls/hr ONCE ONCE IV Last administered on 08/10/25at 09:54; Start 08/10/25 at 08:30; Stop 08/11/25 at 09:29; Status DC Piperacillin Sod/ Tazobactam Sod 3.375 gm Q8H IVPB Last administered on 08/20/25at 04:32; Start 08/10/25 at 13:00; Stop 08/20/25 at 12:59; Status DC Fentanyl 25 mcg Q72H TD; Start 08/12/25 at 15:30; Stop 08/12/25 at 16:00; Status DC Hydromorphone HCl 0.5 mg Q6H PRN IVP Last administered on 08/15/25at 16:03; Start 08/11/25 at 11:00; Stop 08/16/25 at 10:59; Status DC Methocarbamol 500 mg BID PO Last administered on 08/21/25at 08:15; Start 08/11/25 at 16:00; Stop 09/10/25 at 15:59 Gabapentin 100 mg TID PO Last administered on 08/21/25at 08:15; Start 08/11/25 at 21:00; Stop 09/10/25 at 20:59 Multivitamins/ Minerals 10 ml/ Chromium/Copper/ Manganese/Zinc 3 ml/Amino Acids/ Electrolytes/ Dextrose 2,000 ml @ 80 mls/hr ONCE ONCE IV Last administered on 08/12/25at 22:38; Start 08/12/25 at 20:00; Stop 08/13/25 at 11:49; Status DC Fat Emulsion Intravenous 250 ml @ 42 mls/hr DAILY10 IV Last administered on 08/18/25at 09:57; Start 08/13/25 at 10:00; Stop 08/19/25 at 10:44; Status DC Fentanyl 25 mcg Q72H TD Last administered on 08/16/25at 00:02; Start 08/12/25 at 21:00; Stop 08/17/25 at 20:59; Status DC Acetaminophen/ Hydrocodone Bitart 1 tab Q4H PRN PO Last administered on 08/17/25at 10:17; Start 08/12/25 at 16:30; Stop 08/17/25 at 16:29; Status DC Home Med HS TD; Start 08/12/25 at 21:00; Stop 08/21/25 at 00:24; Status DC Multivitamins/ Minerals 10 ml/ Chromium/Copper/ Manganese/Zinc 3 ml/Amino Acids/ Electrolytes/ Dextrose 2,000 ml @ 80 mls/hr ONCE ONCE IV Last administered on 08/13/25at 20:15; Start 08/13/25 at 20:00; Stop 08/14/25 at 11:29; Status DC Multivitamins/ Minerals 10 ml/ Amino Acids/ Electrolytes/ Dextrose 2,000 ml @ 80 mls/hr ONCE ONCE IV Last administered on 08/14/25at 21:37; Start 08/14/25 at 20:00; Stop 08/15/25 at 20:59; Status DC Duloxetine HCl 30 mg BID PO Last administered on 08/21/25at 08:14; Start 08/15/25 at 21:00; Stop 09/14/25 at 20:59 Ketorolac Tromethamine 15 mg Q8H PRN IM Last administered on 08/16/25at 00:01; Start 08/15/25 at 18:30; Stop 08/16/25 at 06:57; Status DC Pharmacy Profile Note 1 each ONCE MISC; Start 08/16/25 at 16:00; Stop 08/15/25 at 21:12; Status DC Multivitamins/ Minerals 10 ml/ Amino Acids/ Electrolytes/ Dextrose 2,000 ml @ 80 mls/hr ONCE ONCE IV Last administered on 08/15/25at 23:25; Start 08/15/25 at 21:00; Stop 08/16/25 at 13:13; Status DC Amino Acids/ Electrolytes/ Dextrose 2,000 ml @ 80 mls/hr ONCE ONCE IV; Start 08/16/25 at 13:30; Stop 08/17/25 at 01:21; Status DC Ondansetron HCl 4 mg Q6H IVP Last administered on 08/21/25at 06:05; Start 08/16/25 at 18:00; Stop 09/15/25 at 17:59 Amino Acids/ Electrolytes/ Dextrose 2,000 ml @ 40 mls/hr ONCE ONCE IV Last administered on 08/17/25at 01:40; Start 08/17/25 at 01:30; Stop 08/19/25 at 10:44; Status DC Acetaminophen/ Hydrocodone Bitart 1 tab Q6H PRN PO Last administered on 08/21/25at 06:11; Start 08/17/25 at 21:30; Stop 08/22/25 at 21:29 Fluconazole/ Sodium Chloride 100 ml @ 100 mls/hr DAILY IV Last administered on 08/21/25at 08:09; Start 08/20/25 at 22:30; Stop 08/23/25 at 23:00 Piperacillin Sod/ Tazobactam Sod 3.375 gm Q8H IVPB Last administered on 08/21/25at 06:05; Start 08/20/25 at 23:00; Stop 08/23/25 at 23:00 Sodium Chloride 50 ml AD IV; Start 08/20/25 at 22:30; Stop 08/20/25 at 22:43; Status DC BENEDICTO OBRIEN Jr. PAC Aug 21, 2025 09:56
--- NOTE | 2025-08-21 13:40 | PN ---
NEPHROLOGY PROGRESS NOTE Date/Time Patient Seen: Aug 21, 2025 SUBJECTIVE: This is a 55-year-old female with a past medical history of diabetes mellitus type 2, liver cirrhosis, esophageal varices. He presented to the emergency room with chief complain of abdominal pain. CT of the abdomen showed moderate small bowel enteritis with free air in the upper abdomen, suggesting perforated bowel versus post surgical changes. No obs truction. S/p diagnostic laparoscopy, abdominal washout, drain placement and diverting loop ileostomy creation with CHRIS drain 10 Tajik on 07/21 S/P cholecystotomy tube on 08/02 S/P Cholecystogram showed cholecystotomy tube in satisfactory position with multiple large gallstones seen in the gallbladder lumen on 08/09 S/P successful CT guided drainage of left infrasplenic collection on 08/09 Diet is being advanced as tolerated, continues on TPN as per surgery Plan for abscessogram for possible percutaneous drain removal on Saturday as per surgery recommendations She was noted to have elevated BUN/creatinine We are consulted for renal failure Renal function is stable Continues with hyponatremia, most likely related to liver cirrhosis. She was seen in the medial floor, in no acute distress No family at the bedside REVIEW OF SYSTEMS: GENERAL: Positive for nausea NEUROLOGIC: Negative for any blurry vision, blind spots, double vision, facial asymmetry, dysphagia, dysarthria, hemiparesis, hemisensory deficits, vertigo, ataxia. HEENT: Negative for any head trauma, neck trauma, neck stiffness, photophobia, phonophobia, sinusitis, rhinitis. CARDIAC: Negative for any chest pain, dyspnea on exertion, paroxysmal nocturnal dyspnea, peripheral edema. PULMONARY: Negative for any shortness of breath, wheezing, COPD, or TB exposure. GASTROINTESTINAL: Negative for any abdominal pain, nausea, vomiting, bright red blood per rectum, melena. GENITOURINARY: Negative for any dysuria, hematuria, incontinence. INTEGUMENTARY: Negative for any rashes, cuts, insect bites. RHEUMATOLOGIC: Negative for any joint pains, photosensitive rashes, history of vasculitis or kidney problems. HEMATOLOGIC: Negative for any abnormal bruising, frequent infections or bleeding. Vital Signs (last 8hr) Date Time Temp Pulse Resp B/P (MAP) Pulse Ox O2 Delivery O2 Flow Rate FiO2 08/21/25 08:50 98.1 89 16 120/74 94 Room Air PHYSICAL EXAM: GENERAL: Alert and oriented x 3. No acute distress. Well-nourished. EYES: EOMI. Anicteric. HENT: Moist mucous membranes. No scleral icterus. No cervical lymphadenopathy. LUNGS: Clear to auscultation bilaterally. No accessory muscle use. CARDIOVASCULAR: Regular rate and rhythm. No murmur. No JVD. ABDOMEN: Soft, non-tender and non-distended. No palpable masses. EXTREMITIES: No edema. Non-tender SKIN: No rashes or lesions. Warm. NEUROLOGIC: No focal neurological deficits. CN II-XII grossly intact, but not individually tested. PSYCHIATRIC: Cooperative. Appropriate mood and affect. Current Medications Medications (Trade) Dose Ordered Sig/Gregory Route Start Time Stop Time Status Last Admin Dose Admin Albumin Human 50 ml @ 100 mls/hr Q12H IV 08/02/25 21:30 08/05/25 09:59 DC 08/05/25 10:12 100 MLS/HR Albumin Human 50 ml @ 0 mls/hr Q12H IV 08/02/25 18:30 08/02/25 20:04 DC Albumin Human 100 ml @ 0 mls/hr ONCE IV 07/25/25 12:00 07/26/25 11:59 DC 07/25/25 13:43 100 MLS/HR Clotrimazole (Lotrimin) 1 GM BID TP 07/29/25 21:00 08/28/25 20:59 08/20/25 21:00 1 GM Cyclobenzaprine HCl (Cyclobenzaprine HCl) 5 mg TID PO 07/25/25 14:00 07/26/25 14:00 DC 07/26/25 14:19 5 MG Duloxetine HCl (CymbALTA 30 mg CAP) 30 mg BID PO 08/15/25 21:00 09/14/25 20:59 08/21/25 08:14 30 MG Fat Emulsion Intravenous 250 ml @ 42 mls/hr DAILY10 IV 08/13/25 10:00 08/19/25 10:44 DC 08/18/25 09:57 42 MLS/HR Fentanyl (DURAgesic 12 MCG/HR PATCH) 12 mcg Q72H TD 08/09/25 13:00 08/09/25 15:19 DC Fentanyl (DURAgesic 12 MCG/HR PATCH) 12 mcg Q72H TD 08/09/25 15:30 08/11/25 10:32 DC 08/09/25 15:38 12 MCG Fentanyl (DURAgesic 25 MCG/HR PATCH) 25 mcg Q72H TD 07/31/25 14:30 07/31/25 14:44 DC Fentanyl (DURAgesic 25 MCG/HR PATCH) 25 mcg Q72H TD 08/12/25 15:30 08/12/25 16:00 DC Fentanyl (DURAgesic 25 MCG/HR PATCH) 25 mcg Q72H TD 08/12/25 21:00 08/17/25 20:59 DC 08/16/25 00:02 25 MCG Fluconazole/ Sodium Chloride 100 ml @ 100 mls/hr DAILY IV 08/20/25 22:30 08/23/25 23:00 08/21/25 08:09 100 MLS/HR Fluconazole/ Sodium Chloride (DiFLUCan 200 MG/ NS 100 ML) 200 mg Q24H IVPB 07/21/25 21:00 08/20/25 20:59 DC 08/19/25 20:18 200 MG Furosemide (LASix 20MG TAB) 20 mg DAILY PO 07/25/25 11:00 08/02/25 11:53 DC 08/02/25 09:42 20 MG Gabapentin (NEURontin 100 mg CAP) 100 mg TID PO 07/29/25 14:00 08/02/25 09:21 DC 08/01/25 20:14 100 MG Gabapentin (NEURontin 100 mg CAP) 100 mg TID PO 08/11/25 21:00 09/10/25 20:59 08/21/25 13:21 100 MG Home Med (Compound Po Narcotic) HS TD 08/12/25 21:00 08/21/25 00:24 DC Insulin Human Regular (humuLIN R 100 UNIT/ML 3ML) INSULIN SLIDING SCAL... ACHS SQ 07/21/25 07:30 08/20/25 07:29 DC 08/18/25 17:31 2 UNIT Lactated Ringer's 1,000 ml @ 75 mls/hr [id number] IV 07/21/25 00:00 07/21/25 13:17 DC 07/21/25 02:57 75 MLS/HR Lactated Ringer's 1,000 ml @ 75 mls/hr [id number] IV 07/21/25 13:30 07/24/25 11:09 DC 07/24/25 09:27 75 MLS/HR Lactobacillus Rhamnosus ([facility] GoTable & Constant Therapy) 1 each DAILY20 PO 07/26/25 20:00 08/25/25 19:59 08/20/25 20:08 1 EACH Lidocaine (Lidoderm Patch 5%) 1 patch DAILY TP 07/28/25 09:00 08/27/25 08:59 08/21/25 08:17 1 PATCH Lidocaine HCl/Al Hydroxide/Mg Hydroxide/ Dicyclomine HCl 20ML OR AD ONCE PO 08/06/25 16:30 08/07/25 16:29 DC 08/06/25 16:45 20 ML Methocarbamol (methoCARBamol) 500 mg BID PO 08/11/25 16:00 09/10/25 15:59 08/21/25 08:15 500 MG Metoclopramide HCl (regLAN 10MG IV) 5 mg BID IVP 08/04/25 21:00 09/03/25 20:59 08/21/25 08:16 5 MG Metronidazole/ Sodium Chloride (flaGYL) 500 mg Q8H IV 07/21/25 14:00 07/21/25 13:40 DC Norepinephrine 250 ml @ 0 mls/hr PROTOCOL IV 07/20/25 23:30 08/03/25 08:27 DC 07/21/25 10:56 18.45 MLS/HR Ondansetron HCl (zoFRAN 4MG INJ) 4 mg Q6H IVP 08/16/25 18:00 09/15/25 17:59 08/21/25 13:20 4 MG Pantoprazole Sodium (PROTonix 40MG INJ) 40 mg BID IV 07/26/25 21:00 08/20/25 08:59 DC 08/19/25 20:16 40 MG Pantoprazole Sodium (PROTonix 40MG INJ) 40 mg BID IVP 08/05/25 21:00 08/06/25 08:39 DC 08/05/25 20:25 40 MG Pantoprazole Sodium (PROTonix 40MG INJ) 40 mg DAILY IV 07/21/25 09:00 07/26/25 09:31 DC 07/26/25 08:55 40 MG Pharmacy Profile Note (Pharmacy Communication) 1 each ONCE MISC 07/21/25 15:30 07/21/25 15:16 DC Pharmacy Profile Note (Pharmacy Communication) 1 each ONCE MISC 08/16/25 16:00 08/15/25 21:12 DC Pharmacy Profile Note (Pharmacy Communication) 1 each ONCE MISC 08/06/25 16:00 08/07/25 07:07 DC Piperacillin Sod/ Tazobactam Sod 50 ml @ 200 mls/hr ONCE STAT IVPB 07/20/25 19:15 07/20/25 19:29 DC 07/20/25 20:32 200 MLS/HR Piperacillin Sod/ Tazobactam Sod (Zosyn 3.375gm+NS 50ml) 3.375 gm Q12H IV 07/21/25 00:00 07/31/25 00:00 DC 07/30/25 23:55 3.375 GM Piperacillin Sod/ Tazobactam Sod (Zosyn 3.375gm+NS 50ml) 3.375 gm Q8H IVPB 07/31/25 11:30 08/10/25 11:29 DC 08/10/25 04:05 3.375 GM Piperacillin Sod/ Tazobactam Sod (Zosyn 3.375gm+NS 50ml) 3.375 gm Q8H IVPB 08/20/25 23:00 08/23/25 23:00 08/21/25 06:05 3.375 GM Piperacillin Sod/ Tazobactam Sod (Zosyn 3.375gm+NS 50ml) 3.375 gm Q8H IVPB 08/10/25 13:00 08/20/25 12:59 DC 08/20/25 04:32 3.375 GM Psyllium Hydrophilic Mucilloid (Metamucil) 1 tbs BID PO 07/26/25 21:00 08/25/25 20:59 08/21/25 08:16 1 TBS Simethicone (Mylicon) 80 mg Q6H6 PO 07/27/25 12:00 08/26/25 11:59 08/21/25 13:21 80 MG Sodium Bicarbonate 150 meq/Sodium Chloride 1,150 ml @ 0 mls/hr Q0M IVP 07/21/25 14:00 07/26/25 09:31 DC Sodium Chloride (NS 50ml) 50 ml AD IV 07/31/25 11:30 07/31/25 11:12 DC Sodium Chloride (NS 50ml) 50 ml AD IV 08/20/25 22:30 08/20/25 22:43 DC Sodium Chloride (Normal Saline Flush) 10 ml Q8H IJ 08/09/25 11:00 09/08/25 10:59 08/21/25 11:00 10 ML Spironolactone (Aldactone 25mg) 25 mg BID PO 07/25/25 21:00 07/26/25 09:01 DC 07/26/25 08:56 25 MG Sucralfate (Carafate) 1 gm ACHS PO 07/29/25 21:00 08/28/25 20:59 08/21/25 13:20 1 GM Thiamine HCl (Vitamin B-1) 100 mg DAILY IVP 07/22/25 21:00 08/21/25 20:59 08/21/25 08:15 100 MG Thiamine HCl 100 mg/Sodium Chloride 50 ml @ 100 mls/hr Q24H IM 07/21/25 15:30 07/21/25 16:25 DC Vancomycin HCl (Vancomycin 1g/ 250ml Kit) 1 gm ONCE STAT IV 07/20/25 21:23 07/20/25 21:26 DC 07/20/25 22:06 1 GM Vasopressin 20 units/Sodium Chloride 100 ml @ 0 mls/hr PROTOCOL IV 07/21/25 00:30 08/03/25 08:27 DC 07/21/25 00:10 9 MLS/HR LABORATORY: [ ] Hematology Labs: Test 08/21/25 03:47 Range/Units White Blood Count 6.1 4.8-10.8 K/uL Red Blood Count 3.85 L 4.00-5.50 MIL/uL Hemoglobin 11.4 L 12.0-16.0 g/dL Hematocrit 35.1 L 36-48 % Mean Corpuscular Volume 91.2 79-99 fL Mean Corpuscular Hemoglobin 29.6 27.0-33.0 pg Mean Corpuscular Hemoglobin Concent 32.5 32.0-36.0 g/dL Red Cell Distribution Width 17.2 H 11.0-15.5 % Platelet Count 234 130-400 K/uL Mean Platelet Volume 9.6 7.5-10.5 fL Nucleated Red Blood Cells 0.0 0.0-0.19 % Chemistry Labs: Test 08/21/25 11:56 08/21/25 03:47 Range/Units Whole Blood Glucose 129 H 70-110 MG/DL Sodium Level 127 L 136-145 mmol/L Potassium Level 4.7 3.5-5.1 mmol/L Chloride Level 97 L 101-111 mmol/L Carbon Dioxide Level 18 L 21-32 mmol/L Blood Urea Nitrogen 13 7-18 mg/dL Creatinine 0.8 0.5-1.0 mg/dL Glomerular Filtration Rate Calc 86 >90 mL/min Random Glucose 96 70-105 mg/dL Total Calcium 9.8 8.5-10.1 mg/dL DIAGNOSTICS / RADIOLOGY: [facility] [address] [place] [address] IMAGING REPORT Signed PATIENT: DALLAS BUCHANAN MR#: [id number] : 1970 SEX: F AGE: 55 LOCATION: [facility] ORDER 1 STATUS: ADM IN REPORT#: [id number] SERVICE REASON: picc line placement ORDERING PHYSICIAN: AYAKA BARR MD PROCEDURE: CXR1VW - CHEST 1VW EXAM: CR Chest, single view. CLINICAL HISTORY: PICC line placement. COMPARISON: Prior chest radiograph dated July 22, 2025 FINDINGS: Left-sided PICC line placement with tip in the region of the superior vena cava. Mild cardiomegaly. An ill-defined soft tissue in the superior mediastinum possibility of aortic arch aneurysm, is not excluded. The lungs show no infiltrate or other acute findings. No pleural effusion or pneumothorax. No acute osseous abnormality. IMPRESSION: Left-sided PICC line placement with tip in the region of the superior vena cava. Mild cardiomegaly. An ill-defined soft tissue in the superior mediastinum possibility of aortic arch aneurysm, is not excluded. May consider further evaluation with contrast-enhanced CT thorax. Compared to the prior study, there is no interval resolution of the subsegmental atelectasis in the right lower lobe, interval removal of the nasogastric tube, and interval placement of the left-sided PICC catheter. /[place] DICTATED BY: ELDON MILLER Jr., MD DATE: 08/11/25824 ELECTRONICALLY SIGNED BY: ELDON MILLER Jr., MD DATE: 08/11/25824 PATIENT: DALLAS BUCHANAN MR#: [id number] : 1970 SEX: F AGE: 55 LOCATION: 4AH ORDER 1544 STATUS: ADM IN REPORT#: [id number] SERVICE 08 REASON: Aspiration of perisplenic fluid noted on CT ORDERING PHYSICIAN: BENEDICTO OBRIEN Jr. PROCEDURE: GUID NDL - CT GUIDE NDL PLCMT IR CT GUIDE NDL PLCMT IR HISTORY: Aspiration of perisplenic fluid noted on CT infrasplenic fluid collection drainage . TECHNIQUE: Images from prior studies reviewed. Informed consent was obtained after explaining the procedure and potential complications to the patient. Time out performed. The patient was placed prone on the CT couch and images of the abdomen obtained. The left flank draped in sterile fashion. Local anesthesia was applied and under CT-fluoroscopy guidance, a 19-gauge needle introducer was advanced through the abdominal wall and into a left infrasplenic fluid collection in the left hemiabdomen. Then, over a wire the tract was dilated to accommodate a 8 Tajik APDL catheter, which was left coiled within the collection. Completion images reveal no hemorrhage. Patient tolerated the procedure well and was discharged from the department in good condition. Approximately 10 cc of fluid mL of fluid sent for cultures. Conscious sedation provided by a registered nurse who monitored the patient's vital signs throughout and after the procedure. MEDICATIONS: Fentanyl 100 mcg IV and Versed 2 mg IV IMPRESSION: Successful CT guided drainage of left infrasplenic collection. DICTATED BY: GREER FIORE MD DATE: 08/10/25927 ELECTRONICALLY SIGNED BY: GREER FIORE MD DATE: 08/10/25937 PATIENT: DALLAS BUCHANAN MR#: [id number] : 1970 SEX: F AGE: 55 LOCATION: 4AH ORDER 1337 STATUS: ADM IN REPORT#: [id number] SERVICE 1336 REASON: epigastric pain. not tolerating meals. ORDERING PHYSICIAN: SUSAN JHAVERI MD PROCEDURE: ABD PEL W - CT ABDOMEN/PELVIS W/CONTRAST EXAM: CT Abdomen and Pelvis with IV contrast CLINICAL HISTORY: epigastric pain. not tolerating meals. TECHNIQUE: Axial computed tomography images of the abdomen and pelvis with intravenous contrast. CONTRAST: with intravenous contrast. COMPARISON: Compared with the previous CT dated 07/20 and USG dated 07/29 FINDINGS: LUNG BASES: Grossly stable atelectasis and scarring at the lung bases. LIVER: Unremarkable. GALLBLADDER AND BILE DUCTS: The gallbladder is decompressed with a cholecystostomy tube in situ. PANCREAS: Unremarkable. SPLEEN: The spleen is enlarged in size, measuring 15.2 cm. ADRENAL GLANDS: Unremarkable. KIDNEYS, URETERS, AND BLADDER: No hydronephrosis or nephrolithiasis. No ureteral calculi. The urinary bladder is unremarkable. STOMACH AND BOWEL: The ileostomy site appears unremarkable. Interval resolution of previously seen moderate small bowel enteritis. No obstruction. APPENDIX: No CT evidence for appendicitis. PERITONEUM: Near complete interval resolution of previously seen moderate ascites in the abdomen and pelvis. Collection in the perisplenic and infra-splenic region measuring 6.0 x 6.1 x 8.9 cm. Interval resolution of previously seen pneumoperitoneum. Diffuse mesenteric fat stranding, likely postoperative changes. LYMPH NODES: No lymphadenopathy. REPRODUCTIVE: Unremarkable as visualized. VASCULATURE: No aortic aneurysm. ABDOMINAL WALL AND SOFT TISSUES: Interval resolution of previously seen subcutaneous emphysema in the anterior abdominal wall and left lateral chest wall. Abdominal drain in situ with tip in the pelvis. BONES: No fracture or suspicious osseous abnormality. IMPRESSION: 1. Perisplenic and infrasplenic fluid collection measuring 6.0 x 6.1 x 8.9 cm. 2. Splenomegaly, with spleen measuring 15.2 cm. 3. Cholecystostomy tube in situ with decompressed gallbladder. 4. Abdominal drain in situ with tip in the pelvis. 5. No acute findings in the remainder of the abdomen and pelvis. /[place] DICTATED BY: ELDON MILLER Jr., MD DATE: 08/04/251636 ELECTRONICALLY SIGNED BY: ELDON MILLER Jr., MD DATE: 08/04/25 163 PATIENT: DALLAS BUCHANAN MR#: [id number] : 1970 SEX: F AGE: 55 LOCATION: 4AH ORDER 1524 STATUS: ADM IN REPORT#: [id number] SERVICE 1523 REASON: cholecystitis ORDERING PHYSICIAN: BENEDICTO OBRIEN Jr. PROCEDURE: HIDA PHARM - NM HIDA/HEPATOBILI W/ PHARMACO EXAM: HIDA scan. INDICATION: Severe RUQ Pain to rule out cholecystitis. REFERENCE EXAMINATION: USG July 29, 2025. TECHNIQUE: Sequential images of the abdomen were obtained in the anterior projection after IV administration of 6.0 mCi of Tc99m Mebrofenin. FINDINGS: Tracer activity throughout the liver is homogeneous without focal defects. There is prompt excretion of the pharmaceutical into the bile ducts and into the small bowel, without evidence of obstruction. There is no visualization of the gallbladder at the conclusion of the examination. IMPRESSION: Scintigraphic findings are compatible with acute cholecystitis. /[place] DICTATED BY: ELDON MILLER Jr., MD DATE: 08/01/25 1011 ELECTRONICALLY SIGNED BY: ELDON MILLER Jr., MD DATE: 08/01/25 1011 PATIENT: DALLAS BUCHANAN MR#: [id number] : 1970 SEX: F AGE: 55 LOCATION: 4AH ORDER 10 STATUS: ADM IN REPORT#: [id number] SERVICE 09 REASON: ABD PAIN ORDERING PHYSICIAN: NIKKI MUNOZ NP PROCEDURE: ABD 1VW - ABD 1VW EXAM: CR Abdomen, 1 view. CLINICAL HISTORY: Pain. COMPARISON: None provided. FINDINGS: Dilated small bowel loops are seen in mid abdomen. There is a density in the pelvis which may represent a send drainage catheter. No free air is evident. No abnormal calcification. No aggressive appearing osseous lesion. IMPRESSION: Dilated small bowel loops are seen in mid abdomen. Density in the pelvis which may represent a send drainage catheter. /[place] DICTATED BY: TOBI LEAHY MD DATE: 07/29/25 1033 ELECTRONICALLY SIGNED BY: TOBI LEAHY MD DATE: 07/29/25 103 PATIENT: DALLAS BUCHANAN MR#: [id number] : 1970 SEX: F AGE: 55 LOCATION: 4AH ORDER 18 STATUS: ADM IN REPORT#: [id number] SERVICE 15 REASON: Liver cirrhosis ORDERING PHYSICIAN: LISET DOUGLAS MD PROCEDURE: ABDOMEN - US ABDOMINAL COMPLETE EXAM: US Abdomen complete CLINICAL HISTORY: Liver cirrhosis TECHNIQUE: Real-time ultrasound of the abdomen (complete) with image documentation. COMPARISON: None provided. FINDINGS: LIVER: Liver measures 12.3 cm with a heterogeneous coarse echotexture. GALLBLADDER: Gallbladder contains stones and sludge. Gallbladder is distended. COMMON BILE DUCT: No dilation. PANCREAS: Pancreas not well-visualized due to overlying bowel gas KIDNEYS: Normal renal contours. No renal mass or calculus. No hydronephrosis. SPLEEN: Normal in size and echogenicity. No mass identified. AORTA: No aneurysm. IVC: Unremarkable as visualized. MISCELLANEOUS: Small amount of abdominal ascites. IMPRESSION: 1. Cirrhotic-appearing liver. 2. Cholelithiasis and biliary sludge with gallbladder distension. 3. Small volume ascites. /[place] DICTATED BY: CYNTHIA JULIAN MD DATE: 07/29/25 105 ELECTRONICALLY SIGNED BY: CYNTHIA JULIAN MD DATE: 07/29/25 105 PATIENT: DALLAS BUCHANAN MR#: [id number] : 1970 SEX: F AGE: 55 LOCATION: 2BH ORDER 1108 STATUS: ADM IN REPORT#: [id number] SERVICE 1106 REASON: sob ORDERING PHYSICIAN: PREET BOSTON MD PROCEDURE: CXR1VW - CHEST 1VW CHEST 1VW REASON: sob COMPARISON: Study from 07/21/2025 is available. FINDINGS: Single view of the chest was obtained. Lungs are clear. Heart size is normal. There is no pulmonary vascular congestion. There is a right-sided PIC catheter with tip in superior vena cava. There is a nasogastric tube with the tip in the fundus of the stomach. Mediastinum and bony thorax appear unremarkable. IMPRESSION: 1. No acute cardiopulmonary process 2. The support lines are in satisfactory position.. DICTATED BY: GREER FIORE MD DATE: 07/22/251349 ELECTRONICALLY SIGNED BY: GREER FIORE MD DATE: 07/22/251353 PATIENT: DALLAS BUCHANAN MR#: [id number] : 1970 SEX: F AGE: 55 LOCATION: 2BH ORDER 0100 STATUS: ADM IN REPORT#: [id number] SERVICE 0100 REASON: PICC LINE ORDERING PHYSICIAN: HEATHER LEACH APRN PROCEDURE: CXR1VW - CHEST 1VW EXAM: CR Chest, single view. CLINICAL HISTORY: PICC line COMPARISON: Prior same day chest radiograph. FINDINGS: Right-sided PICC catheter with tip in the cavoatrial junction. Subsegmental atelectasis in the right lower lobe. No evidence of pleural effusion or pneumothorax. The cardiomediastinal silhouette is within normal limits. No acute osseous abnormality. IMPRESSION: Right-sided PICC catheter with tip in the cavoatrial junction. Subsegmental atelectasis in the right lower lobe. No evidence of pleural effusion or pneumothorax. Compared to the prior study, there is interval placement of the right-sided PICC line and interval resolution of the subsegmental atelectasis in the left lower lobe. /[place] DICTATED BY: ELDON MILLER Jr., MD DATE: 07/21/25816 ELECTRONICALLY SIGNED BY: ELDON MILLER Jr., MD DATE: 07/21/25816 PATIENT: DALLAS BUCHANAN MR#: [id number] : 1970 SEX: F AGE: 55 LOCATION: [facility] ORDER 14 STATUS: [facility] REPORT#: [id number] SERVICE 12 REASON: CHEST PAIN/COUGH ORDERING PHYSICIAN: ALHAJI SHINE NP PROCEDURE: CXR1VW - CHEST 1VW EXAM: XR Chest, 1 View. CLINICAL HISTORY: 55 year old female with chest pain and cough. COMPARISON: None provided. FINDINGS: LUNGS: The lungs demonstrate evidence of atelectasis. PLEURAL SPACES: A small right pleural effusion is present. HEART: The heart size is normal. BONES: No acute osseous abnormality. IMPRESSION: 1. Small right pleural effusion and right lung base atelectasis. /[place] DICTATED BY: EDWIGE LEDESMA MD DATE: 07/20/252046 ELECTRONICALLY SIGNED BY: EDWIGE LEDESMA MD DATE: 07/20/252046 PATIENT: DALLAS BUCHANAN MR#: [id number] : 1970 SEX: F AGE: 55 LOCATION: [facility] ORDER 14 STATUS: REG ER REPORT#: [id number] SERVICE 12 REASON: Abdominal Pain ORDERING PHYSICIAN: ALHAJI SHINE NP PROCEDURE: ABD PEL W - CT ABDOMEN/PELVIS W/CONTRAST ADDENDUM REPORT ADDENDUM: Results were shared by telephone at 23:23 pm on 07-20-2025 and acknowledged by Pt nurse Ms. SHIN BOYKIN. /[place] EXAM: CT Abdomen and Pelvis with Intravenous Contrast CLINICAL HISTORY: 55-year-old female with abdominal pain. TECHNIQUE: Axial computed tomography images of the abdomen and pelvis with intravenous contrast. Dose reduction technique was used including one or more of the following: automated exposure control, adjustment of mA and kV according to patient size, and/or iterative reconstruction. CONTRAST: Omnipaque 350, 75 mL COMPARISON: None provided. FINDINGS: LUNG BASES: Atelectasis and scarring at the lung bases. LIVER: Unremarkable. GALLBLADDER AND BILE DUCTS: Tiny gallstone seen. PANCREAS: Unremarkable. SPLEEN: Unremarkable. ADRENAL GLANDS: Unremarkable. KIDNEYS, URETERS, AND BLADDER: Dueñas catheter seen in the bladder lumen. No hydronephrosis or nephrolithiasis. No ureteral calculi. STOMACH AND BOWEL: Edema or loops of small bowel suggesting moderate small bowel enteritis. Free air in the upper abdomen is seen, suggesting perforated bowel. No obstruction. APPENDIX: No CT evidence for appendicitis. PERITONEUM: Moderate ascites in the abdomen and pelvis. No free air under the diaphragm. LYMPH NODES: No lymphadenopathy. REPRODUCTIVE: Unremarkable as visualized. VASCULATURE: No aortic aneurysm. ABDOMINAL WALL AND SOFT TISSUES: There is air in the subcutaneous soft tissue seen anteriorly, suggesting recent postsurgical changes; please correlate with surgical history. BONES: No fracture or suspicious osseous abnormality. IMPRESSION: 1. Moderate small bowel enteritis with free air in the upper abdomen, suggesting perforated bowel versus post surgical changes. No obstruction. 2. Moderate ascites in the abdomen and pelvis. 3. Air in the subcutaneous soft tissue anteriorly, suggesting recent postsurgical changes; please correlate with surgical history. /[place] DICTATED BY: EDWIGE LEDESMA MD DATE: 07/20/25 0055 ELECTRONICALLY SIGNED BY: DATE: EXAM: CT Abdomen and Pelvis with Intravenous Contrast CLINICAL HISTORY: 55-year-old female with abdominal pain. TECHNIQUE: Axial computed tomography images of the abdomen and pelvis with intravenous contrast. Dose reduction technique was used including one or more of the following: automated exposure control, adjustment of mA and kV according to patient size, and/or iterative reconstruction. CONTRAST: Omnipaque 350, 75 mL COMPARISON: None provided. FINDINGS: LUNG BASES: Atelectasis and scarring at the lung bases. LIVER: Unremarkable. GALLBLADDER AND BILE DUCTS: Tiny gallstone seen. PANCREAS: Unremarkable. SPLEEN: Unremarkable. ADRENAL GLANDS: Unremarkable. KIDNEYS, URETERS, AND BLADDER: Dueñas catheter seen in the bladder lumen. No hydronephrosis or nephrolithiasis. No ureteral calculi. STOMACH AND BOWEL: Edema or loops of small bowel suggesting moderate small bowel enteritis. Free air in the upper abdomen is seen, suggesting perforated bowel. No obstruction. APPENDIX: No CT evidence for appendicitis. PERITONEUM: Moderate ascites in the abdomen and pelvis. No free air under the diaphragm. LYMPH NODES: No lymphadenopathy. REPRODUCTIVE: Unremarkable as visualized. VASCULATURE: No aortic aneurysm. ABDOMINAL WALL AND SOFT TISSUES: There is air in the subcutaneous soft tissue seen anteriorly, suggesting recent postsurgical changes; please correlate with surgical history. BONES: No fracture or suspicious osseous abnormality. IMPRESSION: 1. Moderate small bowel enteritis with free air in the upper abdomen, suggesting perforated bowel versus post surgical changes. No obstruction. 2. Moderate ascites in the abdomen and pelvis. 3. Air in the subcutaneous soft tissue anteriorly, suggesting recent postsurgical changes; please correlate with surgical history. /[place] DICTATED BY: EDWIGE LEDESMA MD DATE: 07/20/252317 ELECTRONICALLY SIGNED BY: EDWIGE LEDESMA MD DATE: 07/20/252317 ASSESSMENT: Acute kidney injury Hyponatremia Bacterial peritonitis Perisplenic and infrasplenic fluid collection with splenomegaly Cholelithiasis 2 mm perforation of the colonic anastomosis Anastomosis leak Bilious peritonitis S/p Diagnostic laparoscopy, abdominal washout, drain placement and diverting loop ileostomy creation Atrophic vaginitis Anemia Diabetes Mellitus Type 2 Septic Shock Cirrhosis of liver Oesophageal Varices PLAN: Labs, diagnostic, radiologic exams reviewed and interpreted by myself and supervising physician. We have reviewed external records in detail Pending abscessogram for possible percutaneous drain removal on Saturday as per surgery recs Continue with antibiotics as per ID BiPAP as necessary, for respiratory distress Monitor blood pressure adjust medication doses as needed Avoid hypotensive episodes May use Dilaudid 0.5 mg IV every 6 hours as needed for severe pain Monitor blood sugars Strict intake, output, and daily weight should be monitored Please renally adjust medications Avoid nephrotoxic and nonsteroidal drugs Avoid contrast if possible Will continue to monitor renal function, anemia, electrolytes Treatment plan discussed with patient Questions were answered We have discussed with the other team physicians in detail about the care plan We will continue to monitor the patient closely ATTESTATION BY PHYSICIAN I have seen and examined the patient. I reviewed the documentation, medical decision making, and treatment plan as noted by the mid-level provider above. I agree with the findings and plan of care. CIELO PORTILLO MD, [facility] Aug 21, 2025 13:40
--- NOTE | 2025-08-21 16:47 | PN ---
[facility] PROGRESS NOTE Date of Service: Aug 21, 2025 Time of Service: 16:47 SUBJECTIVE: Ms. Gray is a 55-year-old female that was seen and examined today on 07/20/2025. Patient reports that she came to the emergency department with a chief complaint of abdominal pain. Onset was 07/09/2025. Location is all four quadrants. Duration is constant. Character is described as pressure and " like I have a lot of gas trapped. " there was no alleviating factors. There was no aggravating factors. Patient reports associated abdominal swelling. 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 After the discharge she was taking pain medications and her condition started worsening after few days. She is in constant follow up with Dr Gann. Today in the emergency department WBCs 21.2, left shift neutrophils 85.5%, BUN 26, creatinine 3.1, GFR 17, lactic acid 8.0, no urinalysis has been collected or sent to lab, CT of abdomen and pelvis showed of free air in the abdomen which could be a suspected bowel perforation versus postsurgical changes, moderate ascites, fissure post surgical changes. Chest x-ray shows right pleural effusion. Additionally patient had a heart rate of 125, respirations 26, together with leukocytosis and lactic acidosis patient met clinical sepsis criteria additionally patient's blood pressure dropped to 85/50 mmHg requiring vasopressor support therefore meeting criteria for septic shock. Patient will be admitted to the intensive care unit. Emergency room physician spoke with patient's surgeon, Dr. Gann who requested patient be admitted under hospitalist service and she will follow this case along. 07/21/25 Patient was evaluated at the bedside. She was accompanied by her daughter. She is oriented to the time, place and person. She complained of abdominal pain in all the quadrants. She hasn't had bowel movement since Saturday and also is unable to pass flatus at this time. She has guarding, rigidity and tenderness all over the abdomen, showing the signs of peritonitis. She was seen by Dr Gann this m and is planned to be taken to OR this afternoon. Dueñas catheter is in place, as she wasn't able to pass the urine. There is no fever, chills and any other signs of infection. 07/22/25 Patient was evaluated at the bedside. She was accompanied by her daughter. She is oriented to the time, place and person. She underwent Diagnostic laparoscopy, abdominal washout, drain placement and diverting loop ileostomy creation, The procedure revealed Bilious peritonitis, 2 mm perforation of the colonic anastomosis. She is hemodynamically stable with Blood pressure of 110/73 and HR of 83. Currently she complains of abdominal pain which is getting better than yesterday, its 3-4/10 intensity. There is no rigidity. She is anxious about the outcomes and had discussion regarding her current clinical status and lab parameters. There is no fever, chills and any other signs of infection. 07/23/25 Patient was evaluated at the bedside. She was accompanied by her daughter. She is oriented to the time, place and person. She status post diagnostic laparoscopy, abdominal washout, drain placement and diverting loop ileostomy creation. Currently she complains of abdominal pain which is 5/10 intensity. She also complaints of mild lower back pain There is no fever, chills and any other signs of infection. She has CHRIS drain in-situ with clear fluid along with colostomy bag. She is currently tolerating clear liquid diet. 07/24/2025 Patient is seen and examined at the bedside. Vitals blood pressure ranging in 100s/50s, pulse rate 50s, SpO2 greater than 95% on room air. She mentions about experiencing pressure-like discomfort on the right side of the abdomen and pain when she tries to eat. No acute events last night. She denies fever, chills, nausea, vomiting, chest pain. CHRIS output approximately 100cc/hr, serosanguineous fluid. Ileostomy bag in place. She is tolerating clear liquid diet without any nausea/vomiting. Labs hemoglobin 9.8, BUN 38, creatinine improved from 1.6-1.1. 07/25/2025 Patient is seen and examined at the bedside. She complains of abdominal pain which is 7/10 in intensity. No acute events last night. She denies fever, chills, nausea, vomiting, chest pain. CHRIS output approximately 100cc/hr, serosanguineous fluid. Ileostomy bag in place. The patient has been started on spironolactone 25mg BID and Lasix 20 mg once daily. There is high output from CHRIS but it is clear serous, most likely related to her ascites from her history of liver cirrhosis. She is tolerating clear liquid diet without any nausea/vomiting. 07/26/2025 Patient is seen and examined at the bedside. She complains of abdominal pain which remains constant. No acute events last night. She denies fever, chills, nausea, vomiting, chest pain. Patient is status post with a CHRIS drain. The drain has been collecting the serosanguineous fluid secondary to ascites. She has been tolerating liquid diet and her diet has been advanced to soft diet. She still h as bloating for which probiotics and fibers has been recommended. Hemoglobin has gradually trended down to 9.2 and was given IV Venofer. Patient to get up and ambulate and work with physical therapy. 07/27/2025 Patient is seen and examined at the bedside. She complains of abdominal pain which is 6/10 in intensity. No acute events last night. She denies fever, chills, nausea, vomiting, chest pain. Patient is unable to tolerate the soft diet, hence she is currently receiving the liquid diets. The CHRIS drain output is still high and there was small amount of drainage observed in the right ileostomy. 07/28/2025 Patient is seen and examined at the bedside. She complains of abdominal pain which is 9/10 in intensity. No acute events last night. She denies fever, chills, nausea, vomiting, chest pain. Patient reported pain after eating but no nausea or vomiting. WBC is gradually trending up from 8.3-7.3-11.1-11.8. She had lidocaine patch placed this morning. She was started on simethicone 80 mg yesterday. Pertinent she is currently receiving Dilaudid 0.5 mg. Abdominal ultrasound has been ordered for further assessment. 07/29/2025 Patient is seen and examined at the bedside. She continues to complain of severe abdominal pain, rated 9/10 in intensity, unchanged from prior. She is currently receiving Dilaudid 0.5 mg for pain. She reports discomfort related to Dueñas catheterization. She denies fever, chest pain, nausea or vomiting at this time. No acute events were reported overnight. Blood pressure noted today is noted to be 98/54 mm Hg which is slightly low. Per surgery team, stoma is likely to be removed today. Hemoglobin has trended down from 9.7 g/dl to 9.0 g/dl. 07/30/2025 Patient is seen and examined at the bedside. She continues to complain of severe abdominal pain. Her abdominal distention has slightly improved. Dueñas's catheter was removed due to persistent discomfort. We will continue with scheduled removal of the ascites fluid and from CHRIS bulb. Ultrasound of abdomen was concerning for cholelithiasis with biliary sludge and gallbladder distention. HIDA scan was performed today. If consistent with cholecystitis patient will need cholecystostomy tube placement. 07/31/2025 Patient is seen and examined at the bedside. She was accompanied by her daughter. She continues to complain of severe abdominal pain. She is currently on Dilaudid 0.5mg Q4H PRN, which relieves the symptoms for 2-3 hours, after that she develops same level of pain and discomfort again. Currently awaiting the HIDA scan results. Her sodium level is 133 and albumin level is trending downwards from 2.3 to 2.1. Her Iron panel results showed: Iron 20L, TIBC 147L and %sat 16.3L. For her continuos pain she is started on Fentanyl 25mcg. CHRIS drain culture has beens sent. Based on the results of HIDA scan, CT chest will be planned. 08/01/2025: Patient is seen and examined this morning at bedside. She was accompanied by her daughter. The patient complains of severe abdominal pain. She is currently being managed with Osteen, and Dilaudid for breakthrough pain. HIDA scan results are back, and show acute cholecystitis. Surgery has been made aware of the results. IR has been consulted for cholecystostomy tube placement. The patient will be started on PPN, as recommended by general surgery. The patient follows with Dr. Sol outpatient for her liver cirrhosis. The patients daughter would like her cut tobacco bulker Dr. Sol to be involved in the patients care, and be updated with her status. 08/02/2025: Patient is seen and evaluated in the room 432. She was accompanied by her daughter. She complains of severe abdominal pain. She also complained of bleeding through her vagina, pink tinged urine. Her vitals are in the normal range. Her labs are in the normal range except for Hb is 8.6, Na is 135, K is 5.2, BUN is 4, Glucose is 150, CRP is 103.90. She went for placement of cholecystectomy tube by IR. We did a pelvic exam and ordered a vaginal estrogen cream and urinalysis. Also for her hyperkalemia we checked the potassium again and its 4.1. So we will repeat the labs tomorrow. We ordered a dose of albumin for her. 08/03/2025: Patient is seen and evaluated in the room 432. She has mild abdominal pain today. Her pain improved after the placement for cholecystotomy tube. Her vitals are in the normal range. Her labs are normal except for hemoglobin 8.2, glucose 156, CRP 89.8. Her aerobic and anaerobic culture of drain showed no growth. Gastroenterology saw the patient and they recommended 25 grams of 25% IV albumin q12H for 3 days. Her bleeding through the vagina decreased. The drainage through the left abdomen is 100ml, right abdomen is 20ml, left anterior abdomen 5ml. 08/04/2025: Patient is seen and evaluated in the room 432. She has abdominal pain today. Her vitals are in the normal range. Her labs are normal except for Hb is 8, CRP is 72.10, glucose is 130. Aerobic and anaerobic drain culture showed no growth. She is not able to tolerate her food. The drainage through the left abdomen is 100ml, right abdomen is 20ml, left anterior abdomen 5ml. Gastroenterology is planning to do EGD tomorrow. Surgery wanted to do a CT abdomen and pelvis with IV contrast. CT scan showed perisplenic and infrasplenic fluid collection measuring 6.0 x 6.1 x 8.9 cm, splenomegaly, with spleen measuring 15.2 cm, cholecystostomy tube in situ with decompressed gallbladder, abdominal drain in situ with tip in the pelvis. We ordered T.bilirubin and we will monitor the output from colostomy tube. We are also planning to add metoclopramide. 08/05/2025: Patient is seen and evaluated in the room 432. She has abdominal pain today. Her abdomen is tender to touch and warm. Her vital signs are in the normal range except for BP is 117/45. Her labs are normal except for Hb is 8.2, sodium is 135, creatinine is 0.3, CRP is 60.9 The drain output from left abdomen is 40ml, left anterior abdomen 0ml, right abdomen 0ml. Her saturation is 100% on 10L of O2. Her labs are in the normal range except for Hb is 8.2, HCT is 25.9, sodium is 135, glucose is 107, CRP is 60.90. She underwent endoscopy today and they did biopsy from 3 sites. GI said that they will consult radiology to check whether CHRIS drain and cholecystostomy tube are in place. General surgery will consult IR to evaluate perisplenic fluid collection for potential aspiration. 08/06/2025: Patient is seen and evaluated in the room 432. She has abdominal pain today. Her abdomen is tender to touch and warm. Her vital signs are in the normal range except for 97/63. Her labs are in the normal range except for Hb is 8.1, sodium is 135, blood glucose is 151, CRP 53.60. We are waiting for IR consult for evaluation and for potential aspiration of perisplenic fluid. The drain output from right abdomen is 20ml. 08/07/2025: Patient is seen and evaluated in the room 432. She has abdominal pain today. Her abdomen is tender to touch and warm. Her vital signs are in the normal range except for blood pressure which is 102/60. Her labs are in the normal range except for Hb is 8.5, WBC is 4.4, RDW is 17.3, sodium is 134, glucose is 147. We are waiting for IR consult for evaluation and for potential aspiration of perisplenic fluid. The drain output from right abdomen is 20ml. The CLINICAL OPERATIONS CONSULTANT told me that she eats her food after taking her pain medications. Nurse is planning to start full liquid diet for lunch. 08/08/2025: She was evaluated at the bedside this morning. She is AAO x3. she complained of epigastric pain which gets worse with food . Moderate tenderness was appreciated on the epigastric region. Her blood pressure is 99/46, pulse 80. Remarkable lab is for WBC of 4.8, hemoglobin 9, CRP 43.90. She is scheduled with IR for perisplenic fluid aspiration and checking the position of cholecystostomy tube. She is on full liquid diet. She is on Zosyn, fluconazole. Surgery, GI, ID on the board. Rest of the plan as discussed below. 08/09/2025: Patient went to slabbing machine operator for PROCEDURE. As per nurse, her cholecystostomy tube was already correctly positioned but had some stones so tube was flushed. She complained of epigastric and pelvic pain. For pain control, fentanyl patch has been ordered. She is pending perisplenic fluid aspiration by IR. Her blood pressure is 98/58, pulse 90. She is currently NPO. She is on Zosyn, fluconazole. Surgery, GI, ID on the board. Rest of the plan as discussed below. 08/10/2025: Patient was seen and examined at bedside. She underwent CT GUIDED PERISPLENIC PIGTAIL DRAINAGE CATHETER PLACEMENT with Aspiration of perisplenic fluid. There has been 25 ml sanguinous drainage so far in the catheter. Her cholecystostomy tube has had 30 mL drainage in the past 24 hours. She is currently on clear liquid diet tolerating it well. She continues to complain pain in her abdomen without any peritoneal signs. She was started on fentanyl patch yesterday. Gram stain and body fluid culture were sent after drainage of perisplenic abscess which showed RARE GRAM POSITIVE COCCI after 1 day. Patient is currently on Zosyn. 08/11/2025: Patient was seen and examined. She continues to complain of abdominal pain. Her multimodal pain medications were adjusted with fentanyl increased to 25mcg and Dilaudid frequency changed from q.4h to q.6h. She is currently on clear liquid diet and complains of pain while eating. She continues on Zosyn and fluconazole. We are waiting for culture results after drainage of perisplenic abscess. Incision site is clean, dry and intact. Will continue to follow recommendations from ID, General surgery and Nephrology. 08/12/2025: Patient was seen and examined at bedside. She complained of pain in right upper abdomen as well as left lower quadrant, along the drainage catheter insertion. No peritoneal signs present. She is currently on multimodal pain management. Today, we are advancing her to full liquid diet. Culture results have been negative so far. Incision site is clean, dry and intact. Will continue to follow recommendations from ID, General surgery and Nephrology. 08/13/2025: Patient was seen and examined at bedside. She complained of pain in right upper quadrant and left quadrant of abdomen along the line of drainage catheter placement. Comparatively, her pain is better than yesterday and patient states that she feels pain in between pain medication. No peritoneal signs are present. We will follow up with General surgery for CHRIS drain removal as there has been 0 to minimal drainage in the past few days. Patient is currently on full liquid diet. 08/14/2025 Patient is seen and examined at the bedside. She complains of intermittent pain in the left upper quadrant near the drainage catheter site which is well controlled with pain medications. No acute events last night. Vitals blood pressure in 90s/50s. Urine output 1.4 L, stool 1.2 L [ileostomy bag], 23 mL from left abdominal drain, 20 mL from right abdominal drain, 15 mL from RUQ drain over the last 24 hours. She denies fever, chills, chest pain/shortness of breath, tingling/numbness/pain in bilateral lower extremities. She is able to tolerate GI soft/bland diet without any nausea/vomiting. Labs WBC 4.1, hemoglobin stable at 8.9. We will continue parenteral nutrition. 08/15/2025: Patient was seen and examined this morning at bedside. The patient reports continued abdominal pain, worse on her left upper quadrant. The patient states that when she takes her pain medication, the pain resolves. However, without the pain medication, the patient reports that the pain remains prominent. Duloxetine will be started for its dual benefit in managing the abdominal pain and addressing potential underlying mood symptoms that may be amplifying the patients pain perception. I educated the patient on importance of eating her GI soft diet. We will continue to follow ID and surgery recommendations. 08/16/2025: Patient was seen and examined this morning at bedside in room 432. Patient admits to have continued nausea since yesterday and is unable to tolerate any food. Her CHRIS drain was removed yesterday and still continues to have left upper quadrant and right upper quadrant drains. Patient is discontinued from Dilaudid and is currently managed with p.r.n. Osteen q.4. Dr. Gann recommended to reduce the dose of TPN to 40 mL to assess if patient's appetite improves. They also changed metoclopramide to scheduled q.12. We will follow the surgery and ID recommendations. 08/17/2025: Patient was examined at bedside in room 432. Patient reports improved nausea and is able to tolerate fruits however still does not have appetite for regular meals. Patient reports mild abdominal tenderness however denies fever, nausea, vomiting. Patient has no abdominal rigidity. Patient has abdominal drains have minimal drainage and shows no signs of infection. We encouraged the patient to eat GI soft diet as tolerated. We will continue to follow recommendations from ID and surgery. 08/18/2025: Patient was examined at bedside in room 432. Patient reports improved nausea and is able to tolerate her diet however only completes 25-50% of her meals. Her TPN rate was reduced to 20 mL/hour. Patient has mild abdominal tenderness at the right cholecystostomy drain site and left upper quadrant drain, without signs of infection. Patient has ileostomy bag was replaced yesterday for leakage and shows cleared fluid. We encouraged the patient to complete her meals. Surgical team is planning to discharge the patient by the end of the week and we will follow their recommendations closely. 08/19/2025: Patient was examined at bedside in room 432. Patient reports improved nausea and is able to tolerate her diet, however does not complete her meals. Her TPN and fat emulsions will be stopped today and is encouraged to increase dietary intake and protein with Ensure drinks. The surgical team plans to remove her left upper quadrant drain after performing an abscess fistula study. In the meantime case management has been consulted for possible placement in a long term versus home health care. Otherwise patient remained afebrile, mild abdominal pain around the drainage catheter sites, no guarding or rigidity. We will follow the surgical team recommendations closely and anticipate her discharge by the end of the week. 08/20/2025: Patient was examined at bedside in room 432. Patient reported improved nausea and is able to tolerate her diet. Her TPN has been stopped and his encouraged to increase her dietary intake and protein with Ensure drinks. An abscess fistula study has been ordered by Surgical team however as IR is not available till Saturday, it will be done at a later time. Her abdomen is soft, nontender and is there is no guarding or rigidity. Multimodal pain management is being continued but continues to taper off from pain medication. Patient is ambulating in the hallways with support. We will follow surgical team recommendations. 08/21/2025: The patient was evaluated at the bedside today with the RN present during assessment. She appears comfortable and is in no acute distress. Vital signs have remained stable, and laboratory results are within normal limits. Surgical team plans for an abscessogram with possible drain removal on Saturday. The patient continues on IV antibiotics and currently denies any complaints or concerns. REVIEW OF SYSTEMS CONSTITUTIONAL: No fever, chills, or night sweats. NEUROLOGICAL: Denies headache, sensory and motor deficit. CARDIOVASCULAR: Denies any exertional angina, dyspnea on exertion, palpitations. PULMONARY: Denies any shortness of breath, cough, phlegm/sputum, hemoptysis, pleuritic chest pain. GASTROINTESTINAL: Denies nausea. Denies vomiting. No peritoneal signs observed. Mild abdominal discomfort at the drain sites. GENITOURINARY: Denies frequency, urgency, nocturia, hematuria or incontinence. PHYSICAL EXAM GENERAL APPEARANCE: The patient is alert, awake and oriented and bedbound. NEUROLOGICAL: No sensory and motor deficits. CHEST: Normal chest expansion. LUNGS: Normal Vesicular breath sound. Absence of any rales, rhonchi or any wheezing. CARDIOVASCULAR: Regular. S1 and S2 normal. No appreciable rubs, murmurs or gallops. ABDOMEN: Abdomen is soft and slightly tender. Ileostomy creation. Ch olecystostomy and left upper abdominal quadrant catheter in place. Absence of guarding, rigidity and rebound tenderness GENITOURINARY: No suprapubic tenderness. No costovertebral angle tenderness. Vital Signs (last 8hr) Date Time Temp Pulse Resp B/P (MAP) Pulse Ox O2 Delivery O2 Flow Rate FiO2 08/21/25 08:50 98.1 89 16 120/74 94 Room Air LABS: Laboratory: Test 08/21/25 11:56 08/21/25 03:47 Range/Units Whole Blood Glucose 129 H 70-110 MG/DL White Blood Count 6.1 4.8-10.8 K/uL Red Blood Count 3.85 L 4.00-5.50 MIL/uL Hemoglobin 11.4 L 12.0-16.0 g/dL Hematocrit 35.1 L 36-48 % Mean Corpuscular Volume 91.2 79-99 fL Mean Corpuscular Hemoglobin 29.6 27.0-33.0 pg Mean Corpuscular Hemoglobin Concent 32.5 32.0-36.0 g/dL Red Cell Distribution Width 17.2 H 11.0-15.5 % Platelet Count 234 130-400 K/uL Mean Platelet Volume 9.6 7.5-10.5 fL Nucleated Red Blood Cells 0.0 0.0-0.19 % Sodium Level 127 L 136-145 mmol/L Potassium Level 4.7 3.5-5.1 mmol/L Chloride Level 97 L 101-111 mmol/L Carbon Dioxide Level 18 L 21-32 mmol/L Blood Urea Nitrogen 13 7-18 mg/dL Creatinine 0.8 0.5-1.0 mg/dL Glomerular Filtration Rate Calc 86 >90 mL/min Random Glucose 96 70-105 mg/dL Total Calcium 9.8 8.5-10.1 mg/dL Current Medications Medications (Trade) Dose Ordered Sig/Gregory Route PRN Reason Start Time Stop Time Status Last Admin Dose Admin Acetaminophen (TYLenol 500MG TAB) 500 mg Q6H6 PRN PO MILD PAIN (1-3) 07/27/25 16:30 08/07/25 12:15 DC Acetaminophen (TYLenol 500MG TAB) 500 mg Q6H6 PRN PO MILD PAIN (1-3) 08/07/25 10:00 08/07/25 10:03 DC Acetaminophen (TYLenol 650MG SUPPOSITORY) 650 mg Q6H PRN RC MILD PAIN (1-3) 07/21/25 00:00 07/27/25 16:22 DC Acetaminophen/ Hydrocodone Bitart (NORco 5/325MG) 1 tab Q4H PRN PO MODERATE PAIN (4-6) 07/31/25 16:30 08/05/25 16:29 DC 08/05/25 14:57 1 TAB Acetaminophen/ Hydrocodone Bitart (NORco 5/325MG) 1 tab Q4H PRN PO MODERATE PAIN (4-6) 08/07/25 12:30 08/12/25 12:29 DC 08/12/25 00:46 1 TAB Acetaminophen/ Hydrocodone Bitart (NORco 5/325MG) 1 tab Q4H PRN PO MODERATE PAIN (4-6) 08/12/25 16:30 08/17/25 16:29 DC 08/17/25 10:17 1 TAB Acetaminophen/ Hydrocodone Bitart (NORco 5/325MG) 1 tab Q6H PRN PO MODERATE PAIN (4-6) 08/17/25 21:30 08/22/25 21:29 08/21/25 06:11 1 TAB Albumin Human 50 ml @ 100 mls/hr Q12H IV 08/02/25 21:30 08/05/25 09:59 DC 08/05/25 10:12 100 MLS/HR Albumin Human 50 ml @ 0 mls/hr Q12H IV 08/02/25 18:30 08/02/25 20:04 DC Albumin Human 100 ml @ 0 mls/hr ONCE IV 07/25/25 12:00 07/26/25 11:59 DC 07/25/25 13:43 100 MLS/HR Clotrimazole (Lotrimin) 1 GM BID TP 07/29/25 21:00 08/28/25 20:59 08/20/25 21:00 1 GM Cyclobenzaprine HCl (Cyclobenzaprine HCl) 5 mg TID PO 07/25/25 14:00 07/26/25 14:00 DC 07/26/25 14:19 5 MG Duloxetine HCl (CymbALTA 30 mg CAP) 30 mg BID PO 08/15/25 21:00 09/14/25 20:59 08/21/25 08:14 30 MG Fat Emulsion Intravenous 250 ml @ 42 mls/hr DAILY10 IV 08/13/25 10:00 08/19/25 10:44 DC 08/18/25 09:57 42 MLS/HR Fentanyl (DURAgesic 12 MCG/HR PATCH) 12 mcg Q72H TD 08/09/25 13:00 08/09/25 15:19 DC Fentanyl (DURAgesic 12 MCG/HR PATCH) 12 mcg Q72H TD 08/09/25 15:30 08/11/25 10:32 DC 08/09/25 15:38 12 MCG Fentanyl (DURAgesic 25 MCG/HR PATCH) 25 mcg Q72H TD 07/31/25 14:30 07/31/25 14:44 DC Fentanyl (DURAgesic 25 MCG/HR PATCH) 25 mcg Q72H TD 08/12/25 15:30 08/12/25 16:00 DC Fentanyl (DURAgesic 25 MCG/HR PATCH) 25 mcg Q72H TD 08/12/25 21:00 08/17/25 20:59 DC 08/16/25 00:02 25 MCG Fluconazole/ Sodium Chloride 100 ml @ 100 mls/hr DAILY IV 08/20/25 22:30 08/23/25 23:00 08/21/25 08:09 100 MLS/HR Fluconazole/ Sodium Chloride (DiFLUCan 200 MG/ NS 100 ML) 200 mg Q24H IVPB 07/21/25 21:00 08/20/25 20:59 DC 08/19/25 20:18 200 MG Furosemide (LASix 20MG TAB) 20 mg DAILY PO 07/25/25 11:00 08/02/25 11:53 DC 08/02/25 09:42 20 MG Gabapentin (NEURontin 100 mg CAP) 100 mg TID PO 07/29/25 14:00 08/02/25 09:21 DC 08/01/25 20:14 100 MG Gabapentin (NEURontin 100 mg CAP) 100 mg TID PO 08/11/25 21:00 09/10/25 20:59 08/21/25 13:21 100 MG Home Med (Compound Po Narcotic) HS TD 08/12/25 21:00 08/21/25 00:24 DC Hydromorphone HCl (DiLAUDid 0.5MG INJ) 0.5 mg Q4H PRN IVP SEVERE PAIN (7-10) 07/24/25 10:00 07/29/25 09:59 DC 07/29/25 08:22 0.5 MG Hydromorphone HCl (DiLAUDid 0.5MG INJ) 0.5 mg Q4H PRN IVP SEVERE PAIN (7-10) 07/29/25 13:30 08/03/25 13:29 DC 08/03/25 13:09 0.5 MG Hydromorphone HCl (DiLAUDid 0.5MG INJ) 0.5 mg Q4H PRN IVP SEVERE PAIN (7-10) 08/03/25 18:00 08/07/25 10:03 DC 08/07/25 05:09 0.5 MG Hydromorphone HCl (DiLAUDid 0.5MG INJ) 0.5 mg Q4H PRN IVP SEVERE PAIN (7-10) 08/07/25 10:00 08/11/25 10:32 DC 08/10/25 20:27 0.5 MG Hydromorphone HCl (DiLAUDid 0.5MG INJ) 0.5 mg Q6H PRN IVP SEVERE PAIN (7-10) 08/11/25 11:00 08/16/25 10:59 DC 08/15/25 16:03 0.5 MG Insulin Human Regular (humuLIN R 100 UNIT/ML 3ML) INSULIN SLIDING SCAL... ACHS SQ 07/21/25 07:30 08/20/25 07:29 DC 08/18/25 17:31 2 UNIT Ketorolac Tromethamine (toRADol) 15 mg Q8H PRN IM MODERATE PAIN (4-6) 08/15/25 18:30 08/16/25 06:57 DC 08/16/25 00:01 15 MG Lactated Ringer's 1,000 ml @ 75 mls/hr [id number] IV 07/21/25 00:00 07/21/25 13:17 DC 07/21/25 02:57 75 MLS/HR Lactated Ringer's 1,000 ml @ 75 mls/hr [id number] IV 07/21/25 13:30 07/24/25 11:09 DC 07/24/25 09:27 75 MLS/HR Lactobacillus Rhamnosus ([facility] [employer]) 1 each DAILY20 PO 07/26/25 20:00 08/25/25 19:59 08/20/25 20:08 1 EACH Lidocaine (Lidoderm Patch 5%) 1 patch DAILY TP 07/28/25 09:00 08/27/25 08:59 08/21/25 08:17 1 PATCH Lidocaine HCl/Al Hydroxide/Mg Hydroxide/ Dicyclomine HCl 20ML OR AD ONCE PO 08/06/25 16:30 08/07/25 16:29 DC 08/06/25 16:45 20 ML Magnesium Sulfate 50 ml @ 0 mls/hr PROTOCOL PRN IV MAGNESIUM PROTOCOL 07/21/25 07:00 08/20/25 06:59 DC 08/01/25 06:05 25 MLS/HR Methocarbamol (methoCARBamol) 500 mg BID PO 08/11/25 16:00 09/10/25 15:59 08/21/25 08:15 500 MG Metoclopramide HCl (regLAN 10MG IV) 5 mg BID IVP 08/04/25 21:00 09/03/25 20:59 08/21/25 08:16 5 MG Metronidazole/ Sodium Chloride (flaGYL) 500 mg Q8H IV 07/21/25 14:00 07/21/25 13:40 DC Morphine Sulfate (morPHINE 2MG SYG) 2 mg Q4H PRN IVP SEVERE PAIN (7-10) 07/21/25 00:30 07/21/25 13:18 DC 07/21/25 04:46 2 MG Morphine Sulfate (morPHINE 4MG SYG) 4 mg Q3H PRN IV MODERATE PAIN (4-6) 07/21/25 13:30 07/26/25 16:29 DC 07/26/25 10:51 4 MG Norepinephrine 250 ml @ 0 mls/hr PROTOCOL IV 07/20/25 23:30 08/03/25 08:27 DC 07/21/25 10:56 18.45 MLS/HR Ondansetron HCl (zoFRAN 4MG INJ) 4 mg Q4H PRN IVP NAUSEA 07/21/25 13:30 08/16/25 17:50 DC 08/16/25 10:23 4 MG Ondansetron HCl (zoFRAN 4MG INJ) 4 mg Q6H IVP 08/16/25 18:00 09/15/25 17:59 08/21/25 13:20 4 MG Ondansetron HCl (zoFRAN 4MG INJ) 4 mg Q6H PRN IV NAUSEA/VOMITING 07/21/25 00:00 07/21/25 13:18 DC Pantoprazole Sodium (PROTonix 40MG INJ) 40 mg BID IV 07/26/25 21:00 08/20/25 08:59 DC 08/19/25 20:16 40 MG Pantoprazole Sodium (PROTonix 40MG INJ) 40 mg BID IVP 08/05/25 21:00 08/06/25 08:39 DC 08/05/25 20:25 40 MG Pantoprazole Sodium (PROTonix 40MG INJ) 40 mg DAILY IV 07/21/25 09:00 07/26/25 09:31 DC 07/26/25 08:55 40 MG Pharmacy Profile Note (Pharmacy Communication) 1 each ONCE MISC 07/21/25 15:30 07/21/25 15:16 DC Pharmacy Profile Note (Pharmacy Communication) 1 each ONCE MISC 08/16/25 16:00 08/15/25 21:12 DC Pharmacy Profile Note (Pharmacy Communication) 1 each ONCE MISC 08/06/25 16:00 08/07/25 07:07 DC Piperacillin Sod/ Tazobactam Sod 50 ml @ 200 mls/hr ONCE STAT IVPB 07/20/25 19:15 07/20/25 19:29 DC 07/20/25 20:32 200 MLS/HR Piperacillin Sod/ Tazobactam Sod (Zosyn 3.375gm+NS 50ml) 3.375 gm Q12H IV 07/21/25 00:00 07/31/25 00:00 DC 07/30/25 23:55 3.375 GM Piperacillin Sod/ Tazobactam Sod (Zosyn 3.375gm+NS 50ml) 3.375 gm Q8H IVPB 07/31/25 11:30 08/10/25 11:29 DC 08/10/25 04:05 3.375 GM Piperacillin Sod/ Tazobactam Sod (Zosyn 3.375gm+NS 50ml) 3.375 gm Q8H IVPB 08/20/25 23:00 08/23/25 23:00 08/21/25 15:52 3.375 GM Piperacillin Sod/ Tazobactam Sod (Zosyn 3.375gm+NS 50ml) 3.375 gm Q8H IVPB 08/10/25 13:00 08/20/25 12:59 DC 08/20/25 04:32 3.375 GM Potassium Chloride 100 ml @ 100 mls/hr AD PRN IV POTASSIUM PROTOCOL 07/24/25 08:30 08/23/25 08:29 07/30/25 06:23 100 MLS/HR Potassium Chloride (K-Dur/Klor-Con 20meq) 20 meq AD PRN PO POTASSIUM PROTOCOL 07/24/25 08:30 08/23/25 08:29 07/27/25 20:33 20 MEQ Potassium Chloride (KCl 10% Elixir 20meq/15ml) 20 meq AD PRN PO POTASSIUM PROTOCOL 07/24/25 08:30 08/23/25 08:29 07/31/25 08:15 20 MEQ Psyllium Hydrophilic Mucilloid (Metamucil) 1 tbs BID PO 07/26/25 21:00 08/25/25 20:59 08/21/25 08:16 1 TBS Simethicone (Mylicon) 80 mg Q6H6 PO 07/27/25 12:00 08/26/25 11:59 08/21/25 13:21 80 MG Sodium Bicarbonate 150 meq/Sodium Chloride 1,150 ml @ 0 mls/hr Q0M IVP 07/21/25 14:00 07/26/25 09:31 DC Sodium Chloride (NS 50ml) 50 ml AD IV 07/31/25 11:30 07/31/25 11:12 DC Sodium Chloride (NS 50ml) 50 ml AD IV 08/20/25 22:30 08/20/25 22:43 DC Sodium Chloride (Normal Saline Flush) 10 ml Q8H IJ 08/09/25 11:00 09/08/25 10:59 08/21/25 11:00 10 ML Spironolactone (Aldactone 25mg) 25 mg BID PO 07/25/25 21:00 07/26/25 09:01 DC 07/26/25 08:56 25 MG Sucralfate (Carafate) 1 gm ACHS PO 07/29/25 21:00 08/28/25 20:59 08/21/25 16:01 1 GM Thiamine HCl (Vitamin B-1) 100 mg DAILY IVP 07/22/25 21:00 08/21/25 20:59 08/21/25 08:15 100 MG Thiamine HCl 100 mg/Sodium Chloride 50 ml @ 100 mls/hr Q24H IM 07/21/25 15:30 07/21/25 16:25 DC Vancomycin HCl (Vancomycin 1g/ 250ml Kit) 1 gm ONCE STAT IV 07/20/25 21:23 07/20/25 21:26 DC 07/20/25 22:06 1 GM Vasopressin 20 units/Sodium Chloride 100 ml @ 0 mls/hr PROTOCOL IV 07/21/25 00:30 08/03/25 08:27 DC 07/21/25 00:10 9 MLS/HR DIAGNOSTICS / RADIOLOGY: [place] [address] IMAGING REPORT Signed PATIENT: DALLAS BUCHANAN MR#: [id number] : 1970 SEX: F AGE: 55 LOCATION: 4AH ORDER 36 STATUS: ADM IN REPORT#: [id number] SERVICE 35 REASON: epigastric pain. not tolerating meals. ORDERING PHYSICIAN: SUSAN GANN MD PROCEDURE: ABD PEL W - CT ABDOMEN/PELVIS W/CONTRAST EXAM: CT Abdomen and Pelvis with IV contrast CLINICAL HISTORY: epigastric pain. not tolerating meals. TECHNIQUE: Axial computed tomography images of the abdomen and pelvis with intravenous contrast. CONTRAST: with intravenous contrast. COMPARISON: Compared with the previous CT dated 07/20 and USG dated 07/29 FINDINGS: LUNG BASES: Grossly stable atelectasis and scarring at the lung bases. LIVER: Unremarkable. GALLBLADDER AND BILE DUCTS: The gallbladder is decompressed with a cholecystostomy tube in situ. PANCREAS: Unremarkable. SPLEEN: The spleen is enlarged in size, measuring 15.2 cm. ADRENAL GLANDS: Unremarkable. KIDNEYS, URETERS, AND BLADDER: No hydronephrosis or nephrolithiasis. No ureteral calculi. The urinary bladder is unremarkable. STOMACH AND BOWEL: The ileostomy site appears unremarkable. Interval resolution of previously seen moderate small bowel enteritis. No obstruction. APPENDIX: No CT evidence for appendicitis. PERITONEUM: Near complete interval resolution of previously seen moderate ascites in the abdomen and pelvis. Collection in the perisplenic and infra-splenic region measuring 6.0 x 6.1 x 8.9 cm. Interval resolution of previously seen pneumoperitoneum. Diffuse mesenteric fat stranding, likely postoperative changes. LYMPH NODES: No lymphadenopathy. REPRODUCTIVE: Unremarkable as visualized. VASCULATURE: No aortic aneurysm. ABDOMINAL WALL AND SOFT TISSUES: Interval resolution of previously seen subcutaneous emphysema in the anterior abdominal wall and left lateral chest wall. Abdominal drain in situ with tip in the pelvis. BONES: No fracture or suspicious osseous abnormality. IMPRESSION: 1. Perisplenic and infrasplenic fluid collection measuring 6.0 x 6.1 x 8.9 cm. 2. Splenomegaly, with spleen measuring 15.2 cm. 3. Cholecystostomy tube in situ with decompressed gallbladder. 4. Abdominal drain in situ with tip in the pelvis. 5. No acute findings in the remainder of the abdomen and pelvis. /[place] DICTATED BY: ELDON MILLER Jr., MD DATE: 08/04/251636 ELECTRONICALLY SIGNED BY: ELDON MILLER Jr., MD DATE: 08/04/251636 ASSESSMENT: Suspected Bowel Perforation/ Anastomotic Leak POA Acute cholecystitis, not POA s/p Cholecystotomy tube placement 08/02/2025 Bilious peritonitis s/p Diagnostic laparoscopy, abdominal washout, drain placement and diverting loop ileostomy creation Perisplenic and infrasplenic fluid collection with splenomegaly - suspected abscess s/p drainage with catheter placement Hyponatremia, resolved Bacterial peritonitis [ESBL Ecoli], resolved Cholelithiasis Atrophic vaginitis Hyperkalemia, resolved Iron Deficiency anemia, POA Diabetes Mellitus Type 2 POA Acute Kidney Injury POA, resolved Septic Shock POA, resolved Cirrhosis of liver POA Esophageal Varices Recent Robotic takedown of splenic flexure mobilization, robotic takedown of colovesical fistula with sigmoid colectomy and end-to-end anastomosis surgery PLAN: Bilious peritonitis status post Diagnostic laparoscopy, abdominal washout, drain placement and diverting loop ileostomy creation -Continue close monitoring of the patient -continue physical therapy -No output in CHRIS drain. Follow up with surgery regarding CHRIS drain removal. -Continue Zosyn [day 31] and fluconazole [day 31]. -Probiotics and Fibers have been added for bloating. -Continue Protonix 40mg IV BID - Continue Osteen 5 mg q.4h p.r.n.,for pain management - As per surgery, continue methocarbamol and gabapentin. Perisplenic and infrasplenic fluid collection with splenomegaly * CT scan showed perisplenic and infrasplenic fluid collection measuring 6.0 x 6.1 x 8.9 cm, splenomegaly, with spleen measuring 15.2 cm * IR drained the perisplenic and intra splenic fluid with placement of drainage catheter. * Cultures resulted in now growth * Continue Zosyn and fluconazole * Plan to remove splenic drainage catheter after abscess fistula study Bacterial Peritonitis, resolved * Post Surgical patient with Bacterial peritonitis positive for ESBL * Culture and sensitivity shows susceptibility to Zosyn, Gentamicin and Meropenem. * Likely secondary to post-operative intraabdominal infection with risk of ongoing contamination. * Currently patient is on Zosyn (Day 31) Cholelithiasis * Patient complained of upper abdominal pain * Ultrasound abdomen showed: Cirrhotic-appearing liver * Cholelithiasis and biliary sludge with gallbladder distension and Small volume ascites. * Hida scan shows acute cholecystitis. * IR did a Fluoroscopy and ultrasound-guided placement of cholecystotomy tube and cholecystogram on 08/02/2025. 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 Patient was found to have normally positioned tube with some stones for which the tube was flushed.. Small Bowel Obstruction (Resolved) * Abdominal Xray showed: Dilated small bowel loops are seen in mid abdomen * Pain management(avoid excess opioids if ileus is suspected) * Monitor for resolution vs progression of Ileus/obstruction. 07/29/25 Bowel Perforation, Dehiscence of the anastomosis - Patient had repair of colovesicular fistula with sigmoid colon resection and anastomosis on 07/09/25. - CT abdominal pelvis w/contrast done on 07/20/2025 showed Free air in the upper abdomen is seen, suggesting perforated bowel vs post surgical changes. No obstruction. - underwent Diagnostic laparoscopy, abdominal washout, drain placement and diverting loop ileostomy creation for biliary peritonitis Iron Deficiency anemia * Hemoglobin today is 9.6. * Anemia panel has been ordered. Results showed Iron 24L, %sat 16.3 and TIBC 147L. 07/30/25 * Received 2 doses of Iron sucrose (venofer) so far Recommend trending Hgb and transfuse as needed to goal Hgb >7 Acute Kidney Injury, Resolved * Creatinine improved * Initial FeNA is 0.1 %, probably secondary to dehydration and NSAIDs overuse. * initial Urine sodium is < 13 and urine creatinine is 132.17. * Avoid nephrotoxic agents, eg. NSAIDS. * Weight patient daily. * Monitor intake and output. Supportive measures - Multimodal pain management - Duloxetine started. -Maintain IV fluids, correct electrolytes -Serial abdominal exams -Acid Tender on avoidance of NSAIDS and other related triggers. -Monitor Vitals and perform morning labs regularly Continue GI prophylaxis with Pantop Continue DVT prophylaxis with SCDs, we will avoid heparin due to history of allergies to porcine ATTESTATION BY PHYSICIAN I have seen and examined the patient. I reviewed the documentation, medical decision making, and treatment plan as noted by the resident physician above. I agree with the findings and plan of care. AYAKA BARR MD, MANALI MD Aug 21, 2025 16:47
[2025-08-22] VITALS (7 sets, daily range): BP systolic 114–133; BP diastolic 74–80; PULSE 83–105; RESP 16–19; TEMP 97.7–98.6; O2SAT 96–100
[2025-08-22 03:44] LABS: NUCLEATED RED BLOOD CELLS 0.0 % (0.0-0.19); PLATELET COUNT (AUTO) 252.0 K/uL (130-400); RED BLOOD CELL COUNT(AUTO) 3.96 MIL/uL (4.00-5.50); RED CELL DISTRIBUTION WIDTH 17.2 % (11.0-15.5); WHITE BLOOD COUNT (AUTO) 7.5 K/uL (4.8-10.8)
[2025-08-22 04:25] LABS: ASPARTATE AMINOTRANSFERASE 55.0 U/L (10-37); CREATININE 0.9 mg/dL (0.5-1.0); GLOMERULAR FILTR. RATE CALC 75.0 mL/min (>90); GLUCOSE,RANDOM 114.0 mg/dL (70-105); SODIUM SERUM 125.0 mmol/L (136-145); TOTAL PROTEIN, SERUM 8.7 g/dL (6.0-8.3); UREA NITROGEN, BLOOD 14.0 mg/dL (7-18)
--- NOTE | 2025-08-22 10:02 | PN ---
NEPHROLOGY PROGRESS NOTE Date/Time Patient Seen: Aug 22, 2025 SUBJECTIVE: This is a 55-year-old female with a past medical history of diabetes mellitus type 2, liver cirrhosis, esophageal varices. He presented to the emergency room with chief complain of abdominal pain. CT of the abdomen showed moderate small bowel enteritis with free air in the upper abdomen, suggesting perforated bowel versus post surgical changes. No obs truction. S/p diagnostic laparoscopy, abdominal washout, drain placement and diverting loop ileostomy creation with CHRIS drain 10 Montenegrin on 07/21 S/P cholecystotomy tube on 08/02 S/P Cholecystogram showed cholecystotomy tube in satisfactory position with multiple large gallstones seen in the gallbladder lumen on 08/09 S/P successful CT guided drainage of left infrasplenic collection on 08/09 Diet is being advanced as tolerated Plan for abscessogram for possible percutaneous drain removal on Saturday as per surgery recommendations She was noted to have elevated BUN/creatinine We are consulted for renal failure Renal function is stable Continues with hyponatremia, most likely related to liver cirrhosis. She was seen in the medial floor, in no acute distress No family at the bedside REVIEW OF SYSTEMS: GENERAL: Positive for nausea NEUROLOGIC: Negative for any blurry vision, blind spots, double vision, facial asymmetry, dysphagia, dysarthria, hemiparesis, hemisensory deficits, vertigo, ataxia. HEENT: Negative for any head trauma, neck trauma, neck stiffness, photophobia, phonophobia, sinusitis, rhinitis. CARDIAC: Negative for any chest pain, dyspnea on exertion, paroxysmal nocturnal dyspnea, peripheral edema. PULMONARY: Negative for any shortness of breath, wheezing, COPD, or TB exposure. GASTROINTESTINAL: Negative for any abdominal pain, nausea, vomiting, bright red blood per rectum, melena. GENITOURINARY: Negative for any dysuria, hematuria, incontinence. INTEGUMENTARY: Negative for any rashes, cuts, insect bites. RHEUMATOLOGIC: Negative for any joint pains, photosensitive rashes, history of vasculitis or kidney problems. HEMATOLOGIC: Negative for any abnormal bruising, frequent infections or bleeding. Vital Signs (last 8hr) Date Time Temp Pulse Resp B/P (MAP) Pulse Ox O2 Delivery O2 Flow Rate FiO2 08/22/25 08:44 97.7 84 16 114/75 96 Room Air 08/22/25 03:47 98.6 103 17 121/80 95 Room Air PHYSICAL EXAM: GENERAL: Alert and oriented x 3. No acute distress. Well-nourished. EYES: EOMI. Anicteric. HENT: Moist mucous membranes. No scleral icterus. No cervical lymphadenopathy. LUNGS: Clear to auscultation bilaterally. No accessory muscle use. CARDIOVASCULAR: Regular rate and rhythm. No murmur. No JVD. ABDOMEN: Soft, non-tender and non-distended. No palpable masses. EXTREMITIES: No edema. Non-tender SKIN: No rashes or lesions. Warm. NEUROLOGIC: No focal neurological deficits. CN II-XII grossly intact, but not individually tested. PSYCHIATRIC: Cooperative. Appropriate mood and affect. Current Medications Medications (Trade) Dose Ordered Sig/Gregory Route Start Time Stop Time Status Last Admin Dose Admin Albumin Human 50 ml @ 100 mls/hr Q12H IV 08/02/25 21:30 08/05/25 09:59 DC 08/05/25 10:12 100 MLS/HR Albumin Human 50 ml @ 0 mls/hr Q12H IV 08/02/25 18:30 08/02/25 20:04 DC Albumin Human 100 ml @ 0 mls/hr ONCE IV 07/25/25 12:00 07/26/25 11:59 DC 07/25/25 13:43 100 MLS/HR Clotrimazole (Lotrimin) 1 GM BID TP 07/29/25 21:00 08/28/25 20:59 08/20/25 21:00 1 GM Cyclobenzaprine HCl (Cyclobenzaprine HCl) 5 mg TID PO 07/25/25 14:00 07/26/25 14:00 DC 07/26/25 14:19 5 MG Duloxetine HCl (CymbALTA 30 mg CAP) 30 mg BID PO 08/15/25 21:00 09/14/25 20:59 08/21/25 08:14 30 MG Fat Emulsion Intravenous 250 ml @ 42 mls/hr DAILY10 IV 08/13/25 10:00 08/19/25 10:44 DC 08/18/25 09:57 42 MLS/HR Fentanyl (DURAgesic 12 MCG/HR PATCH) 12 mcg Q72H TD 08/09/25 13:00 08/09/25 15:19 DC Fentanyl (DURAgesic 12 MCG/HR PATCH) 12 mcg Q72H TD 08/09/25 15:30 08/11/25 10:32 DC 08/09/25 15:38 12 MCG Fentanyl (DURAgesic 25 MCG/HR PATCH) 25 mcg Q72H TD 07/31/25 14:30 07/31/25 14:44 DC Fentanyl (DURAgesic 25 MCG/HR PATCH) 25 mcg Q72H TD 08/12/25 15:30 08/12/25 16:00 DC Fentanyl (DURAgesic 25 MCG/HR PATCH) 25 mcg Q72H TD 08/12/25 21:00 08/17/25 20:59 DC 08/16/25 00:02 25 MCG Fluconazole/ Sodium Chloride 100 ml @ 100 mls/hr DAILY IV 08/20/25 22:30 08/23/25 23:00 08/21/25 08:09 100 MLS/HR Fluconazole/ Sodium Chloride (DiFLUCan 200 MG/ NS 100 ML) 200 mg Q24H IVPB 07/21/25 21:00 08/20/25 20:59 DC 08/19/25 20:18 200 MG Furosemide (LASix 20MG TAB) 20 mg DAILY PO 07/25/25 11:00 08/02/25 11:53 DC 08/02/25 09:42 20 MG Gabapentin (NEURontin 100 mg CAP) 100 mg TID PO 07/29/25 14:00 08/02/25 09:21 DC 08/01/25 20:14 100 MG Gabapentin (NEURontin 100 mg CAP) 100 mg TID PO 08/11/25 21:00 09/10/25 20:59 08/21/25 13:21 100 MG Home Med (Compound Po Narcotic) HS TD 08/12/25 21:00 08/21/25 00:24 DC Insulin Human Regular (humuLIN R 100 UNIT/ML 3ML) INSULIN SLIDING SCAL... ACHS SQ 07/21/25 07:30 08/20/25 07:29 DC 08/18/25 17:31 2 UNIT Lactated Ringer's 1,000 ml @ 75 mls/hr [id number] IV 07/21/25 00:00 07/21/25 13:17 DC 07/21/25 02:57 75 MLS/HR Lactated Ringer's 1,000 ml @ 75 mls/hr [id number] IV 07/21/25 13:30 07/24/25 11:09 DC 07/24/25 09:27 75 MLS/HR Lactobacillus Rhamnosus ([facility] & Codefied) 1 each DAILY20 PO 07/26/25 20:00 08/25/25 19:59 08/20/25 20:08 1 EACH Lidocaine (Lidoderm Patch 5%) 1 patch DAILY TP 07/28/25 09:00 08/27/25 08:59 08/21/25 08:17 1 PATCH Lidocaine HCl/Al Hydroxide/Mg Hydroxide/ Dicyclomine HCl 20ML OR AD ONCE PO 08/06/25 16:30 08/07/25 16:29 DC 08/06/25 16:45 20 ML Methocarbamol (methoCARBamol) 500 mg BID PO 08/11/25 16:00 09/10/25 15:59 08/21/25 08:15 500 MG Metoclopramide HCl (regLAN 10MG IV) 5 mg BID IVP 08/04/25 21:00 09/03/25 20:59 08/21/25 08:16 5 MG Metronidazole/ Sodium Chloride (flaGYL) 500 mg Q8H IV 07/21/25 14:00 07/21/25 13:40 DC Norepinephrine 250 ml @ 0 mls/hr PROTOCOL IV 07/20/25 23:30 08/03/25 08:27 DC 07/21/25 10:56 18.45 MLS/HR Ondansetron HCl (zoFRAN 4MG INJ) 4 mg Q6H IVP 08/16/25 18:00 09/15/25 17:59 08/21/25 13:20 4 MG Pantoprazole Sodium (PROTonix 40MG INJ) 40 mg BID IV 07/26/25 21:00 08/20/25 08:59 DC 08/19/25 20:16 40 MG Pantoprazole Sodium (PROTonix 40MG INJ) 40 mg BID IVP 08/05/25 21:00 08/06/25 08:39 DC 08/05/25 20:25 40 MG Pantoprazole Sodium (PROTonix 40MG INJ) 40 mg DAILY IV 07/21/25 09:00 07/26/25 09:31 DC 07/26/25 08:55 40 MG Pharmacy Profile Note (Pharmacy Communication) 1 each ONCE MISC 07/21/25 15:30 07/21/25 15:16 DC Pharmacy Profile Note (Pharmacy Communication) 1 each ONCE MISC 08/16/25 16:00 08/15/25 21:12 DC Pharmacy Profile Note (Pharmacy Communication) 1 each ONCE MISC 08/06/25 16:00 08/07/25 07:07 DC Piperacillin Sod/ Tazobactam Sod 50 ml @ 200 mls/hr ONCE STAT IVPB 07/20/25 19:15 07/20/25 19:29 DC 07/20/25 20:32 200 MLS/HR Piperacillin Sod/ Tazobactam Sod (Zosyn 3.375gm+NS 50ml) 3.375 gm Q12H IV 07/21/25 00:00 07/31/25 00:00 DC 07/30/25 23:55 3.375 GM Piperacillin Sod/ Tazobactam Sod (Zosyn 3.375gm+NS 50ml) 3.375 gm Q8H IVPB 07/31/25 11:30 08/10/25 11:29 DC 08/10/25 04:05 3.375 GM Piperacillin Sod/ Tazobactam Sod (Zosyn 3.375gm+NS 50ml) 3.375 gm Q8H IVPB 08/20/25 23:00 08/23/25 23:00 08/21/25 06:05 3.375 GM Piperacillin Sod/ Tazobactam Sod (Zosyn 3.375gm+NS 50ml) 3.375 gm Q8H IVPB 08/10/25 13:00 08/20/25 12:59 DC 08/20/25 04:32 3.375 GM Psyllium Hydrophilic Mucilloid (Metamucil) 1 tbs BID PO 07/26/25 21:00 08/25/25 20:59 08/21/25 08:16 1 TBS Simethicone (Mylicon) 80 mg Q6H6 PO 07/27/25 12:00 08/26/25 11:59 08/21/25 13:21 80 MG Sodium Bicarbonate 150 meq/Sodium Chloride 1,150 ml @ 0 mls/hr Q0M IVP 07/21/25 14:00 07/26/25 09:31 DC Sodium Chloride (NS 50ml) 50 ml AD IV 07/31/25 11:30 07/31/25 11:12 DC Sodium Chloride (NS 50ml) 50 ml AD IV 08/20/25 22:30 08/20/25 22:43 DC Sodium Chloride (Normal Saline Flush) 10 ml Q8H IJ 08/09/25 11:00 09/08/25 10:59 08/21/25 11:00 10 ML Spironolactone (Aldactone 25mg) 25 mg BID PO 07/25/25 21:00 07/26/25 09:01 DC 07/26/25 08:56 25 MG Sucralfate (Carafate) 1 gm ACHS PO 07/29/25 21:00 08/28/25 20:59 08/21/25 13:20 1 GM Thiamine HCl (Vitamin B-1) 100 mg DAILY IVP 07/22/25 21:00 08/21/25 20:59 08/21/25 08:15 100 MG Thiamine HCl 100 mg/Sodium Chloride 50 ml @ 100 mls/hr Q24H IM 07/21/25 15:30 07/21/25 16:25 DC Vancomycin HCl (Vancomycin 1g/ 250ml Kit) 1 gm ONCE STAT IV 07/20/25 21:23 07/20/25 21:26 DC 07/20/25 22:06 1 GM Vasopressin 20 units/Sodium Chloride 100 ml @ 0 mls/hr PROTOCOL IV 07/21/25 00:30 08/03/25 08:27 DC 07/21/25 00:10 9 MLS/HR LABORATORY: [ ] Hematology Labs: Test 08/22/25 03:13 Range/Units White Blood Count 7.5 4.8-10.8 K/uL Red Blood Count 3.96 L 4.00-5.50 MIL/uL Hemoglobin 11.9 L 12.0-16.0 g/dL Hematocrit 35.7 L 36-48 % Mean Corpuscular Volume 90.2 79-99 fL Mean Corpuscular Hemoglobin 30.1 27.0-33.0 pg Mean Corpuscular Hemoglobin Concent 33.3 32.0-36.0 g/dL Red Cell Distribution Width 17.2 H 11.0-15.5 % Platelet Count 252 130-400 K/uL Mean Platelet Volume 9.9 7.5-10.5 fL Nucleated Red Blood Cells 0.0 0.0-0.19 % Chemistry Labs: Test 08/22/25 05:49 08/22/25 03:13 Range/Units Whole Blood Glucose 108 70-110 MG/DL Sodium Level 125 L 136-145 mmol/L Potassium Level 4.9 3.5-5.1 mmol/L Chloride Level 96 L 101-111 mmol/L Carbon Dioxide Level 15 L 21-32 mmol/L Blood Urea Nitrogen 14 7-18 mg/dL Creatinine 0.9 0.5-1.0 mg/dL Glomerular Filtration Rate Calc 75 >90 mL/min Random Glucose 114 H 70-105 mg/dL Total Calcium 10.0 8.5-10.1 mg/dL Total Bilirubin 0.9 0.2-1.0 mg/dL Aspartate Amino Transf (AST/SGOT) 55 H 10-37 U/L Alanine Aminotransferase (ALT/SGPT) 25 12-78 U/L Alkaline Phosphatase 220 H 50-136 U/L Total Protein 8.7 H 6.0-8.3 g/dL Albumin 3.1 L 3.5-5.0 g/dL DIAGNOSTICS / RADIOLOGY: [place] [address] IMAGING REPORT Signed PATIENT: DALLAS BUCHANAN MR#: [id number] : 1970 SEX: F AGE: 55 LOCATION: [facility] ORDER 1 STATUS: ADM IN REPORT#: [id number] SERVICE REASON: picc line placement ORDERING PHYSICIAN: AYAKA BARR MD PROCEDURE: CXR1VW - CHEST 1VW EXAM: CR Chest, single view. CLINICAL HISTORY: PICC line placement. COMPARISON: Prior chest radiograph dated July 22, 2025 FINDINGS: Left-sided PICC line placement with tip in the region of the superior vena cava. Mild cardiomegaly. An ill-defined soft tissue in the superior mediastinum possibility of aortic arch aneurysm, is not excluded. The lungs show no infiltrate or other acute findings. No pleural effusion or pneumothorax. No acute osseous abnormality. IMPRESSION: Left-sided PICC line placement with tip in the region of the superior vena cava. Mild cardiomegaly. An ill-defined soft tissue in the superior mediastinum possibility of aortic arch aneurysm, is not excluded. May consider further evaluation with contrast-enhanced CT thorax. Compared to the prior study, there is no interval resolution of the subsegmental atelectasis in the right lower lobe, interval removal of the nasogastric tube, and interval placement of the left-sided PICC catheter. /[place] DICTATED BY: ELDON MILLER Jr., MD DATE: 08/11/25824 ELECTRONICALLY SIGNED BY: ELDON MILLER Jr., MD DATE: 08/11/25824 PATIENT: DALLAS BUCHANAN MR#: [id number] : 1970 SEX: F AGE: 55 LOCATION: [facility] ORDER 154 STATUS: ADM IN REPORT#: [id number] SERVICE 08 REASON: Aspiration of perisplenic fluid noted on CT ORDERING PHYSICIAN: BENEDICTO OBRIEN Jr. PROCEDURE: GUID NDL - CT GUIDE NDL PLCMT IR CT GUIDE NDL PLCMT IR HISTORY: Aspiration of perisplenic fluid noted on CT infrasplenic fluid collection drainage . TECHNIQUE: Images from prior studies reviewed. Informed consent was obtained after explaining the procedure and potential complications to the patient. Time out performed. The patient was placed prone on the CT couch and images of the abdomen obtained. The left flank draped in sterile fashion. Local anesthesia was applied and under CT-fluoroscopy guidance, a 19-gauge needle introducer was advanced through the abdominal wall and into a left infrasplenic fluid collection in the left hemiabdomen. Then, over a wire the tract was dilated to accommodate a 8 Montenegrin APDL catheter, which was left coiled within the collection. Completion images reveal no hemorrhage. Patient tolerated the procedure well and was discharged from the department in good condition. Approximately 10 cc of fluid mL of fluid sent for cultures. Conscious sedation provided by a registered nurse who monitored the patient's vital signs throughout and after the procedure. MEDICATIONS: Fentanyl 100 mcg IV and Versed 2 mg IV IMPRESSION: Successful CT guided drainage of left infrasplenic collection. DICTATED BY: GREER FIORE MD DATE: 08/10/25927 ELECTRONICALLY SIGNED BY: GREER FIORE MD DATE: 08/10/25937 PATIENT: DALLAS BUCHANAN MR#: [id number] : 1970 SEX: F AGE: 55 LOCATION: [facility] ORDER 36 STATUS: ADM IN REPORT#: [id number] SERVICE 35 REASON: epigastric pain. not tolerating meals. ORDERING PHYSICIAN: SUSAN JHAVERI MD PROCEDURE: ABD PEL W - CT ABDOMEN/PELVIS W/CONTRAST EXAM: CT Abdomen and Pelvis with IV contrast CLINICAL HISTORY: epigastric pain. not tolerating meals. TECHNIQUE: Axial computed tomography images of the abdomen and pelvis with intravenous contrast. CONTRAST: with intravenous contrast. COMPARISON: Compared with the previous CT dated 07/20 and USG dated 07/29 FINDINGS: LUNG BASES: Grossly stable atelectasis and scarring at the lung bases. LIVER: Unremarkable. GALLBLADDER AND BILE DUCTS: The gallbladder is decompressed with a cholecystostomy tube in situ. PANCREAS: Unremarkable. SPLEEN: The spleen is enlarged in size, measuring 15.2 cm. ADRENAL GLANDS: Unremarkable. KIDNEYS, URETERS, AND BLADDER: No hydronephrosis or nephrolithiasis. No ureteral calculi. The urinary bladder is unremarkable. STOMACH AND BOWEL: The ileostomy site appears unremarkable. Interval resolution of previously seen moderate small bowel enteritis. No obstruction. APPENDIX: No CT evidence for appendicitis. PERITONEUM: Near complete interval resolution of previously seen moderate ascites in the abdomen and pelvis. Collection in the perisplenic and infra-splenic region measuring 6.0 x 6.1 x 8.9 cm. Interval resolution of previously seen pneumoperitoneum. Diffuse mesenteric fat stranding, likely postoperative changes. LYMPH NODES: No lymphadenopathy. REPRODUCTIVE: Unremarkable as visualized. VASCULATURE: No aortic aneurysm. ABDOMINAL WALL AND SOFT TISSUES: Interval resolution of previously seen subcutaneous emphysema in the anterior abdominal wall and left lateral chest wall. Abdominal drain in situ with tip in the pelvis. BONES: No fracture or suspicious osseous abnormality. IMPRESSION: 1. Perisplenic and infrasplenic fluid collection measuring 6.0 x 6.1 x 8.9 cm. 2. Splenomegaly, with spleen measuring 15.2 cm. 3. Cholecystostomy tube in situ with decompressed gallbladder. 4. Abdominal drain in situ with tip in the pelvis. 5. No acute findings in the remainder of the abdomen and pelvis. /[place] DICTATED BY: ELDON MILLER Jr., MD DATE: 08/04/251636 ELECTRONICALLY SIGNED BY: ELDON MILLER Jr., MD DATE: 08/04/25 163 PATIENT: DALLAS BUCHANAN MR#: [id number] : 1970 SEX: F AGE: 55 LOCATION: [facility] ORDER 1524 STATUS: ADM IN REPORT#: [id number] SERVICE 1523 REASON: cholecystitis ORDERING PHYSICIAN: BENEDICTO OBRIEN Jr. PROCEDURE: HIDA PHARM - NM HIDA/HEPATOBILI W/ PHARMACO EXAM: HIDA scan. INDICATION: Severe RUQ Pain to rule out cholecystitis. REFERENCE EXAMINATION: USG July 29, 2025. TECHNIQUE: Sequential images of the abdomen were obtained in the anterior projection after IV administration of 6.0 mCi of Tc99m Mebrofenin. FINDINGS: Tracer activity throughout the liver is homogeneous without focal defects. There is prompt excretion of the pharmaceutical into the bile ducts and into the small bowel, without evidence of obstruction. There is no visualization of the gallbladder at the conclusion of the examination. IMPRESSION: Scintigraphic findings are compatible with acute cholecystitis. /[place] DICTATED BY: ELDON MILLER Jr., MD DATE: 08/01/25 101 ELECTRONICALLY SIGNED BY: ELDON MILLER Jr., MD DATE: 08/01/25 101 PATIENT: DALLAS BUCHANAN MR#: [id number] : 1970 SEX: F AGE: 55 LOCATION: [facility] ORDER DT: [id number] STATUS: ADM IN REPORT#: [id number] SERVICE 09 REASON: ABD PAIN ORDERING PHYSICIAN: NIKKI MUNOZ NP PROCEDURE: ABD 1VW - ABD 1VW EXAM: CR Abdomen, 1 view. CLINICAL HISTORY: Pain. COMPARISON: None provided. FINDINGS: Dilated small bowel loops are seen in mid abdomen. There is a density in the pelvis which may represent a send drainage catheter. No free air is evident. No abnormal calcification. No aggressive appearing osseous lesion. IMPRESSION: Dilated small bowel loops are seen in mid abdomen. Density in the pelvis which may represent a send drainage catheter. /[place] DICTATED BY: TOBI LEAHY MD DATE: 07/29/251032 ELECTRONICALLY SIGNED BY: TOBI LEAHY MD DATE: 07/29/251032 PATIENT: DALLAS BUCHANAN MR#: [id number] : 1970 SEX: F AGE: 55 LOCATION: [facility] ORDER 18 STATUS: ADM IN REPORT#: [id number] SERVICE 15 REASON: Liver cirrhosis ORDERING PHYSICIAN: LISET DOUGLAS MD PROCEDURE: ABDOMEN - US ABDOMINAL COMPLETE EXAM: US Abdomen complete CLINICAL HISTORY: Liver cirrhosis TECHNIQUE: Real-time ultrasound of the abdomen (complete) with image documentation. COMPARISON: None provided. FINDINGS: LIVER: Liver measures 12.3 cm with a heterogeneous coarse echotexture. GALLBLADDER: Gallbladder contains stones and sludge. Gallbladder is distended. COMMON BILE DUCT: No dilation. PANCREAS: Pancreas not well-visualized due to overlying bowel gas KIDNEYS: Normal renal contours. No renal mass or calculus. No hydronephrosis. SPLEEN: Normal in size and echogenicity. No mass identified. AORTA: No aneurysm. IVC: Unremarkable as visualized. MISCELLANEOUS: Small amount of abdominal ascites. IMPRESSION: 1. Cirrhotic-appearing liver. 2. Cholelithiasis and biliary sludge with gallbladder distension. 3. Small volume ascites. /[place] DICTATED BY: CYNTHIA JULIAN MD DATE: 07/29/251055 ELECTRONICALLY SIGNED BY: CYNTHIA JULIAN MD DATE: 07/29/251055 PATIENT: DALLAS BUCHANAN MR#: [id number] : 1970 SEX: F AGE: 55 LOCATION: [facility] ORDER 1108 STATUS: ADM IN REPORT#: [id number] SERVICE 110 REASON: sob ORDERING PHYSICIAN: PREET BOSTON MD PROCEDURE: CXR1VW - CHEST 1VW CHEST 1VW REASON: sob COMPARISON: Study from 07/21/2025 is available. FINDINGS: Single view of the chest was obtained. Lungs are clear. Heart size is normal. There is no pulmonary vascular congestion. There is a right-sided PIC catheter with tip in superior vena cava. There is a nasogastric tube with the tip in the fundus of the stomach. Mediastinum and bony thorax appear unremarkable. IMPRESSION: 1. No acute cardiopulmonary process 2. The support lines are in satisfactory position.. DICTATED BY: GREER FIORE MD DATE: 07/22/251349 ELECTRONICALLY SIGNED BY: GREER FIORE MD DATE: 07/22/25 135 PATIENT: DALLAS BUCHANAN MR#: [id number] : 1970 SEX: F AGE: 55 LOCATION: [facility] ORDER 0100 STATUS: ADM IN REPORT#: [id number] SERVICE 010 REASON: PICC LINE ORDERING PHYSICIAN: HEATHER LEACH APRN PROCEDURE: CXR1VW - CHEST 1VW EXAM: CR Chest, single view. CLINICAL HISTORY: PICC line COMPARISON: Prior same day chest radiograph. FINDINGS: Right-sided PICC catheter with tip in the cavoatrial junction. Subsegmental atelectasis in the right lower lobe. No evidence of pleural effusion or pneumothorax. The cardiomediastinal silhouette is within normal limits. No acute osseous abnormality. IMPRESSION: Right-sided PICC catheter with tip in the cavoatrial junction. Subsegmental atelectasis in the right lower lobe. No evidence of pleural effusion or pneumothorax. Compared to the prior study, there is interval placement of the right-sided PICC line and interval resolution of the subsegmental atelectasis in the left lower lobe. /[place] DICTATED BY: ELDON MILLER Jr., MD DATE: 07/21/25816 ELECTRONICALLY SIGNED BY: ELDON MILLER Jr., MD DATE: 07/21/25816 PATIENT: DALLAS BUCHANAN MR#: [id number] : 1970 SEX: F AGE: 55 LOCATION: [facility] ORDER 14 STATUS: [facility] REPORT#: [id number] SERVICE 12 REASON: CHEST PAIN/COUGH ORDERING PHYSICIAN: ALHAJI SHINE [employer]IS[employer] C[employer]IED [employer] PROCEDURE: CXR1VW - CHEST 1VW EXAM: XR Chest, 1 View. CLINICAL HISTORY: 55 year old female with chest pain and cough. COMPARISON: None provided. FINDINGS: LUNGS: The lungs demonstrate evidence of atelectasis. PLEURAL SPACES: A small right pleural effusion is present. HEART: The heart size is normal. BONES: No acute osseous abnormality. IMPRESSION: 1. Small right pleural effusion and right lung base atelectasis. /[place] DICTATED BY: EDWIGE LEDESMA MD DATE: 07/20/252046 ELECTRONICALLY SIGNED BY: EDWIGE LEDESMA MD DATE: 07/20/252046 PATIENT: DALLAS BUCHANAN MR#: [id number] : 1970 SEX: F AGE: 55 LOCATION: [facility] ORDER 14 STATUS: REG ER REPORT#: [id number] SERVICE 12 REASON: Abdominal Pain ORDERING PHYSICIAN: ALHAJI SHINE NP PROCEDURE: ABD PEL W - CT ABDOMEN/PELVIS W/CONTRAST ADDENDUM REPORT ADDENDUM: Results were shared by telephone at 23:23 pm on 07-20-2025 and acknowledged by Pt nurse Ms. SHIN BOYKIN. /[place] EXAM: CT Abdomen and Pelvis with Intravenous Contrast CLINICAL HISTORY: 55-year-old female with abdominal pain. TECHNIQUE: Axial computed tomography images of the abdomen and pelvis with intravenous contrast. Dose reduction technique was used including one or more of the following: automated exposure control, adjustment of mA and kV according to patient size, and/or iterative reconstruction. CONTRAST: Omnipaque 350, 75 mL COMPARISON: None provided. FINDINGS: LUNG BASES: Atelectasis and scarring at the lung bases. LIVER: Unremarkable. GALLBLADDER AND BILE DUCTS: Tiny gallstone seen. PANCREAS: Unremarkable. SPLEEN: Unremarkable. ADRENAL GLANDS: Unremarkable. KIDNEYS, URETERS, AND BLADDER: Dueñas catheter seen in the bladder lumen. No hydronephrosis or nephrolithiasis. No ureteral calculi. STOMACH AND BOWEL: Edema or loops of small bowel suggesting moderate small bowel enteritis. Free air in the upper abdomen is seen, suggesting perforated bowel. No obstruction. APPENDIX: No CT evidence for appendicitis. PERITONEUM: Moderate ascites in the abdomen and pelvis. No free air under the diaphragm. LYMPH NODES: No lymphadenopathy. REPRODUCTIVE: Unremarkable as visualized. VASCULATURE: No aortic aneurysm. ABDOMINAL WALL AND SOFT TISSUES: There is air in the subcutaneous soft tissue seen anteriorly, suggesting recent postsurgical changes; please correlate with surgical history. BONES: No fracture or suspicious osseous abnormality. IMPRESSION: 1. Moderate small bowel enteritis with free air in the upper abdomen, suggesting perforated bowel versus post surgical changes. No obstruction. 2. Moderate ascites in the abdomen and pelvis. 3. Air in the subcutaneous soft tissue anteriorly, suggesting recent postsurgical changes; please correlate with surgical history. /[place] DICTATED BY: EDWIGE LEDESMA MD DATE: 07/20/25 8779 ELECTRONICALLY SIGNED BY: DATE: EXAM: CT Abdomen and Pelvis with Intravenous Contrast CLINICAL HISTORY: 55-year-old female with abdominal pain. TECHNIQUE: Axial computed tomography images of the abdomen and pelvis with intravenous contrast. Dose reduction technique was used including one or more of the following: automated exposure control, adjustment of mA and kV according to patient size, and/or iterative reconstruction. CONTRAST: Omnipaque 350, 75 mL COMPARISON: None provided. FINDINGS: LUNG BASES: Atelectasis and scarring at the lung bases. LIVER: Unremarkable. GALLBLADDER AND BILE DUCTS: Tiny gallstone seen. PANCREAS: Unremarkable. SPLEEN: Unremarkable. ADRENAL GLANDS: Unremarkable. KIDNEYS, URETERS, AND BLADDER: Dueñas catheter seen in the bladder lumen. No hydronephrosis or nephrolithiasis. No ureteral calculi. STOMACH AND BOWEL: Edema or loops of small bowel suggesting moderate small bowel enteritis. Free air in the upper abdomen is seen, suggesting perforated bowel. No obstruction. APPENDIX: No CT evidence for appendicitis. PERITONEUM: Moderate ascites in the abdomen and pelvis. No free air under the diaphragm. LYMPH NODES: No lymphadenopathy. REPRODUCTIVE: Unremarkable as visualized. VASCULATURE: No aortic aneurysm. ABDOMINAL WALL AND SOFT TISSUES: There is air in the subcutaneous soft tissue seen anteriorly, suggesting recent postsurgical changes; please correlate with surgical history. BONES: No fracture or suspicious osseous abnormality. IMPRESSION: 1. Moderate small bowel enteritis with free air in the upper abdomen, suggesting perforated bowel versus post surgical changes. No obstruction. 2. Moderate ascites in the abdomen and pelvis. 3. Air in the subcutaneous soft tissue anteriorly, suggesting recent postsurgical changes; please correlate with surgical history. /[place] DICTATED BY: EDWIGE LEDESMA MD DATE: 07/20/252317 ELECTRONICALLY SIGNED BY: EDWIGE LEDESMA MD DATE: 07/20/252317 ASSESSMENT: Acute kidney injury Hyponatremia Bacterial peritonitis Perisplenic and infrasplenic fluid collection with splenomegaly Cholelithiasis 2 mm perforation of the colonic anastomosis Anastomosis leak Bilious peritonitis S/p Diagnostic laparoscopy, abdominal washout, drain placement and diverting loop ileostomy creation Atrophic vaginitis Anemia Diabetes Mellitus Type 2 Septic Shock Cirrhosis of liver Oesophageal Varices PLAN: Labs, diagnostic, radiologic exams reviewed and interpreted by myself and supervising physician. We have reviewed external records in detail Order urine electrolytes, urine creatinine osmolality Order cortisol level and uric acid in the morning Pending abscessogram for possible percutaneous drain removal on Saturday as per surgery recs Continue with antibiotics as per ID BiPAP as necessary, for respiratory distress Monitor blood pressure adjust medication doses as needed Avoid hypotensive episodes May use Dilaudid 0.5 mg IV every 6 hours as needed for severe pain Monitor blood sugars Strict intake, output, and daily weight should be monitored Please renally adjust medications Avoid nephrotoxic and nonsteroidal drugs Avoid contrast if possible Will continue to monitor renal function, anemia, electrolytes Treatment plan discussed with patient Questions were answered We have discussed with the other team physicians in detail about the care plan We will continue to monitor the patient closely ATTESTATION BY PHYSICIAN I have seen and examined the patient. I reviewed the documentation, medical decision making, and treatment plan as noted by the mid-level provider above. I agree with the findings and plan of care. CIELO PORTILLO MD, [facility] Aug 22, 2025 10:02
--- NOTE | 2025-08-22 15:32 | PN ---
[facility] PROGRESS NOTE Date of Service: Aug 22, 2025 Time of Service: 15:31 SUBJECTIVE: Ms. Gray is a 55-year-old female that was seen and examined today on 07/20/2025. Patient reports that she came to the emergency department with a chief complaint of abdominal pain. Onset was 07/09/2025. Location is all four quadrants. Duration is constant. Character is described as pressure and " like I have a lot of gas trapped. " there was no alleviating factors. There was no aggravating factors. Patient reports associated abdominal swelling. 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 After the discharge she was taking pain medications and her condition started worsening after few days. She is in constant follow up with Dr Gann. Today in the emergency department WBCs 21.2, left shift neutrophils 85.5%, BUN 26, creatinine 3.1, GFR 17, lactic acid 8.0, no urinalysis has been collected or sent to lab, CT of abdomen and pelvis showed of free air in the abdomen which could be a suspected bowel perforation versus postsurgical changes, moderate ascites, fissure post surgical changes. Chest x-ray shows right pleural effusion. Additionally patient had a heart rate of 125, respirations 26, together with leukocytosis and lactic acidosis patient met clinical sepsis criteria additionally patient's blood pressure dropped to 85/50 mmHg requiring vasopressor support therefore meeting criteria for septic shock. Patient will be admitted to the intensive care unit. Emergency room physician spoke with patient's surgeon, Dr. Gann who requested patient be admitted under hospitalist service and she will follow this case along. 07/21/25 Patient was evaluated at the bedside. She was accompanied by her daughter. She is oriented to the time, place and person. She complained of abdominal pain in all the quadrants. She hasn't had bowel movement since Saturday and also is unable to pass flatus at this time. She has guarding, rigidity and tenderness all over the abdomen, showing the signs of peritonitis. She was seen by Dr Gann this m and is planned to be taken to OR this afternoon. Dueñas catheter is in place, as she wasn't able to pass the urine. There is no fever, chills and any other signs of infection. 07/22/25 Patient was evaluated at the bedside. She was accompanied by her daughter. She is oriented to the time, place and person. She underwent Diagnostic laparoscopy, abdominal washout, drain placement and diverting loop ileostomy creation, The procedure revealed Bilious peritonitis, 2 mm perforation of the colonic anastomosis. She is hemodynamically stable with Blood pressure of 110/73 and HR of 83. Currently she complains of abdominal pain which is getting better than yesterday, its 3-4/10 intensity. There is no rigidity. She is anxious about the outcomes and had discussion regarding her current clinical status and lab parameters. There is no fever, chills and any other signs of infection. 07/23/25 Patient was evaluated at the bedside. She was accompanied by her daughter. She is oriented to the time, place and person. She status post diagnostic laparoscopy, abdominal washout, drain placement and diverting loop ileostomy creation. Currently she complains of abdominal pain which is 5/10 intensity. She also complaints of mild lower back pain There is no fever, chills and any other signs of infection. She has CHRIS drain in-situ with clear fluid along with colostomy bag. She is currently tolerating clear liquid diet. 07/24/2025 Patient is seen and examined at the bedside. Vitals blood pressure ranging in 100s/50s, pulse rate 50s, SpO2 greater than 95% on room air. She mentions about experiencing pressure-like discomfort on the right side of the abdomen and pain when she tries to eat. No acute events last night. She denies fever, chills, nausea, vomiting, chest pain. CHRIS output approximately 100cc/hr, serosanguineous fluid. Ileostomy bag in place. She is tolerating clear liquid diet without any nausea/vomiting. Labs hemoglobin 9.8, BUN 38, creatinine improved from 1.6-1.1. 07/25/2025 Patient is seen and examined at the bedside. She complains of abdominal pain which is 7/10 in intensity. No acute events last night. She denies fever, chills, nausea, vomiting, chest pain. CHRIS output approximately 100cc/hr, serosanguineous fluid. Ileostomy bag in place. The patient has been started on spironolactone 25mg BID and Lasix 20 mg once daily. There is high output from CHRIS but it is clear serous, most likely related to her ascites from her history of liver cirrhosis. She is tolerating clear liquid diet without any nausea/vomiting. 07/26/2025 Patient is seen and examined at the bedside. She complains of abdominal pain which remains constant. No acute events last night. She denies fever, chills, nausea, vomiting, chest pain. Patient is status post with a CHRIS drain. The drain has been collecting the serosanguineous fluid secondary to ascites. She has been tolerating liquid diet and her diet has been advanced to soft diet. She still h as bloating for which probiotics and fibers has been recommended. Hemoglobin has gradually trended down to 9.2 and was given IV Venofer. Patient to get up and ambulate and work with physical therapy. 07/27/2025 Patient is seen and examined at the bedside. She complains of abdominal pain which is 6/10 in intensity. No acute events last night. She denies fever, chills, nausea, vomiting, chest pain. Patient is unable to tolerate the soft diet, hence she is currently receiving the liquid diets. The CHRIS drain output is still high and there was small amount of drainage observed in the right ileostomy. 07/28/2025 Patient is seen and examined at the bedside. She complains of abdominal pain which is 9/10 in intensity. No acute events last night. She denies fever, chills, nausea, vomiting, chest pain. Patient reported pain after eating but no nausea or vomiting. WBC is gradually trending up from 8.3-7.3-11.1-11.8. She had lidocaine patch placed this morning. She was started on simethicone 80 mg yesterday. Pertinent she is currently receiving Dilaudid 0.5 mg. Abdominal ultrasound has been ordered for further assessment. 07/29/2025 Patient is seen and examined at the bedside. She continues to complain of severe abdominal pain, rated 9/10 in intensity, unchanged from prior. She is currently receiving Dilaudid 0.5 mg for pain. She reports discomfort related to Dueñas catheterization. She denies fever, chest pain, nausea or vomiting at this time. No acute events were reported overnight. Blood pressure noted today is noted to be 98/54 mm Hg which is slightly low. Per surgery team, stoma is likely to be removed today. Hemoglobin has trended down from 9.7 g/dl to 9.0 g/dl. 07/30/2025 Patient is seen and examined at the bedside. She continues to complain of severe abdominal pain. Her abdominal distention has slightly improved. Dueñas's catheter was removed due to persistent discomfort. We will continue with scheduled removal of the ascites fluid and from CHRIS bulb. Ultrasound of abdomen was concerning for cholelithiasis with biliary sludge and gallbladder distention. HIDA scan was performed today. If consistent with cholecystitis patient will need cholecystostomy tube placement. 07/31/2025 Patient is seen and examined at the bedside. She was accompanied by her daughter. She continues to complain of severe abdominal pain. She is currently on Dilaudid 0.5mg Q4H PRN, which relieves the symptoms for 2-3 hours, after that she develops same level of pain and discomfort again. Currently awaiting the HIDA scan results. Her sodium level is 133 and albumin level is trending downwards from 2.3 to 2.1. Her Iron panel results showed: Iron 20L, TIBC 147L and %sat 16.3L. For her continuos pain she is started on Fentanyl 25mcg. CHRIS drain culture has beens sent. Based on the results of HIDA scan, CT chest will be planned. 08/01/2025: Patient is seen and examined this morning at bedside. She was accompanied by her daughter. The patient complains of severe abdominal pain. She is currently being managed with [place], and Dilaudid for breakthrough pain. HIDA scan results are back, and show acute cholecystitis. Surgery has been made aware of the results. IR has been consulted for cholecystostomy tube placement. The patient will be started on PPN, as recommended by general surgery. The patient follows with Dr. Sol outpatient for her liver cirrhosis. The patients daughter would like her retinal angiographer Dr. Sol to be involved in the patients care, and be updated with her status. 08/02/2025: Patient is seen and evaluated in the room 432. She was accompanied by her daughter. She complains of severe abdominal pain. She also complained of bleeding through her vagina, pink tinged urine. Her vitals are in the normal range. Her labs are in the normal range except for Hb is 8.6, Na is 135, K is 5.2, BUN is 4, Glucose is 150, CRP is 103.90. She went for placement of cholecystectomy tube by IR. We did a pelvic exam and ordered a vaginal estrogen cream and urinalysis. Also for her hyperkalemia we checked the potassium again and its 4.1. So we will repeat the labs tomorrow. We ordered a dose of albumin for her. 08/03/2025: Patient is seen and evaluated in the room 432. She has mild abdominal pain today. Her pain improved after the placement for cholecystotomy tube. Her vitals are in the normal range. Her labs are normal except for hemoglobin 8.2, glucose 156, CRP 89.8. Her aerobic and anaerobic culture of drain showed no growth. Gastroenterology saw the patient and they recommended 25 grams of 25% IV albumin q12H for 3 days. Her bleeding through the vagina decreased. The drainage through the left abdomen is 100ml, right abdomen is 20ml, left anterior abdomen 5ml. 08/04/2025: Patient is seen and evaluated in the room 432. She has abdominal pain today. Her vitals are in the normal range. Her labs are normal except for Hb is 8, CRP is 72.10, glucose is 130. Aerobic and anaerobic drain culture showed no growth. She is not able to tolerate her food. The drainage through the left abdomen is 100ml, right abdomen is 20ml, left anterior abdomen 5ml. Gastroenterology is planning to do EGD tomorrow. Surgery wanted to do a CT abdomen and pelvis with IV contrast. CT scan showed perisplenic and infrasplenic fluid collection measuring 6.0 x 6.1 x 8.9 cm, splenomegaly, with spleen measuring 15.2 cm, cholecystostomy tube in situ with decompressed gallbladder, abdominal drain in situ with tip in the pelvis. We ordered T.bilirubin and we will monitor the output from colostomy tube. We are also planning to add metoclopramide. 08/05/2025: Patient is seen and evaluated in the room 432. She has abdominal pain today. Her abdomen is tender to touch and warm. Her vital signs are in the normal range except for BP is 117/45. Her labs are normal except for Hb is 8.2, sodium is 135, creatinine is 0.3, CRP is 60.9 The drain output from left abdomen is 40ml, left anterior abdomen 0ml, right abdomen 0ml. Her saturation is 100% on 10L of O2. Her labs are in the normal range except for Hb is 8.2, HCT is 25.9, sodium is 135, glucose is 107, CRP is 60.90. She underwent endoscopy today and they did biopsy from 3 sites. GI said that they will consult radiology to check whether CHRIS drain and cholecystostomy tube are in place. General surgery will consult IR to evaluate perisplenic fluid collection for potential aspiration. 08/06/2025: Patient is seen and evaluated in the room 432. She has abdominal pain today. Her abdomen is tender to touch and warm. Her vital signs are in the normal range except for 97/63. Her labs are in the normal range except for Hb is 8.1, sodium is 135, blood glucose is 151, CRP 53.60. We are waiting for IR consult for evaluation and for potential aspiration of perisplenic fluid. The drain output from right abdomen is 20ml. 08/07/2025: Patient is seen and evaluated in the room 432. She has abdominal pain today. Her abdomen is tender to touch and warm. Her vital signs are in the normal range except for blood pressure which is 102/60. Her labs are in the normal range except for Hb is 8.5, WBC is 4.4, RDW is 17.3, sodium is 134, glucose is 147. We are waiting for IR consult for evaluation and for potential aspiration of perisplenic fluid. The drain output from right abdomen is 20ml. The DOWELING MACHINE OPERATOR told me that she eats her food after taking her pain medications. Nurse is planning to start full liquid diet for lunch. 08/08/2025: She was evaluated at the bedside this morning. She is AAO x3. she complained of epigastric pain which gets worse with food . Moderate tenderness was appreciated on the epigastric region. Her blood pressure is 99/46, pulse 80. Remarkable lab is for WBC of 4.8, hemoglobin 9, CRP 43.90. She is scheduled with IR for perisplenic fluid aspiration and checking the position of cholecystostomy tube. She is on full liquid diet. She is on Zosyn, fluconazole. Surgery, GI, ID on the board. Rest of the plan as discussed below. 08/09/2025: Patient went to cardiac cath lab radiology technologist for PROCEDURE. As per nurse, her cholecystostomy tube was already correctly positioned but had some stones so tube was flushed. She complained of epigastric and pelvic pain. For pain control, fentanyl patch has been ordered. She is pending perisplenic fluid aspiration by IR. Her blood pressure is 98/58, pulse 90. She is currently NPO. She is on Zosyn, fluconazole. Surgery, GI, ID on the board. Rest of the plan as discussed below. 08/10/2025: Patient was seen and examined at bedside. She underwent CT GUIDED PERISPLENIC PIGTAIL DRAINAGE CATHETER PLACEMENT with Aspiration of perisplenic fluid. There has been 25 ml sanguinous drainage so far in the catheter. Her cholecystostomy tube has had 30 mL drainage in the past 24 hours. She is currently on clear liquid diet tolerating it well. She continues to complain pain in her abdomen without any peritoneal signs. She was started on fentanyl patch yesterday. Gram stain and body fluid culture were sent after drainage of perisplenic abscess which showed RARE GRAM POSITIVE COCCI after 1 day. Patient is currently on Zosyn. 08/11/2025: Patient was seen and examined. She continues to complain of abdominal pain. Her multimodal pain medications were adjusted with fentanyl increased to 25mcg and Dilaudid frequency changed from q.4h to q.6h. She is currently on clear liquid diet and complains of pain while eating. She continues on Zosyn and fluconazole. We are waiting for culture results after drainage of perisplenic abscess. Incision site is clean, dry and intact. Will continue to follow recommendations from ID, General surgery and Nephrology. 08/12/2025: Patient was seen and examined at bedside. She complained of pain in right upper abdomen as well as left lower quadrant, along the drainage catheter insertion. No peritoneal signs present. She is currently on multimodal pain management. Today, we are advancing her to full liquid diet. Culture results have been negative so far. Incision site is clean, dry and intact. Will continue to follow recommendations from ID, General surgery and Nephrology. 08/13/2025: Patient was seen and examined at bedside. She complained of pain in right upper quadrant and left quadrant of abdomen along the line of drainage catheter placement. Comparatively, her pain is better than yesterday and patient states that she feels pain in between pain medication. No peritoneal signs are present. We will follow up with General surgery for CHRIS drain removal as there has been 0 to minimal drainage in the past few days. Patient is currently on full liquid diet. 08/14/2025 Patient is seen and examined at the bedside. She complains of intermittent pain in the left upper quadrant near the drainage catheter site which is well controlled with pain medications. No acute events last night. Vitals blood pressure in 90s/50s. Urine output 1.4 L, stool 1.2 L [ileostomy bag], 23 mL from left abdominal drain, 20 mL from right abdominal drain, 15 mL from RUQ drain over the last 24 hours. She denies fever, chills, chest pain/shortness of breath, tingling/numbness/pain in bilateral lower extremities. She is able to tolerate GI soft/bland diet without any nausea/vomiting. Labs WBC 4.1, hemoglobin stable at 8.9. We will continue parenteral nutrition. 08/15/2025: Patient was seen and examined this morning at bedside. The patient reports continued abdominal pain, worse on her left upper quadrant. The patient states that when she takes her pain medication, the pain resolves. However, without the pain medication, the patient reports that the pain remains prominent. Duloxetine will be started for its dual benefit in managing the abdominal pain and addressing potential underlying mood symptoms that may be amplifying the patients pain perception. I educated the patient on importance of eating her GI soft diet. We will continue to follow ID and surgery recommendations. 08/16/2025: Patient was seen and examined this morning at bedside in room 432. Patient admits to have continued nausea since yesterday and is unable to tolerate any food. Her CHRIS drain was removed yesterday and still continues to have left upper quadrant and right upper quadrant drains. Patient is discontinued from Dilaudid and is currently managed with p.r.n. [place] q.4. Dr. Gann recommended to reduce the dose of TPN to 40 mL to assess if patient's appetite improves. They also changed metoclopramide to scheduled q.12. We will follow the surgery and ID recommendations. 08/17/2025: Patient was examined at bedside in room 432. Patient reports improved nausea and is able to tolerate fruits however still does not have appetite for regular meals. Patient reports mild abdominal tenderness however denies fever, nausea, vomiting. Patient has no abdominal rigidity. Patient has abdominal drains have minimal drainage and shows no signs of infection. We encouraged the patient to eat GI soft diet as tolerated. We will continue to follow recommendations from ID and surgery. 08/18/2025: Patient was examined at bedside in room 432. Patient reports improved nausea and is able to tolerate her diet however only completes 25-50% of her meals. Her TPN rate was reduced to 20 mL/hour. Patient has mild abdominal tenderness at the right cholecystostomy drain site and left upper quadrant drain, without signs of infection. Patient has ileostomy bag was replaced yesterday for leakage and shows cleared fluid. We encouraged the patient to complete her meals. Surgical team is planning to discharge the patient by the end of the week and we will follow their recommendations closely. 08/19/2025: Patient was examined at bedside in room 432. Patient reports improved nausea and is able to tolerate her diet, however does not complete her meals. Her TPN and fat emulsions will be stopped today and is encouraged to increase dietary intake and protein with Ensure drinks. The surgical team plans to remove her left upper quadrant drain after performing an abscess fistula study. In the meantime case management has been consulted for possible placement in a fpc versus home health care. Otherwise patient remained afebrile, mild abdominal pain around the drainage catheter sites, no guarding or rigidity. We will follow the surgical team recommendations closely and anticipate her discharge by the end of the week. 08/20/2025: Patient was examined at bedside in room 432. Patient reported improved nausea and is able to tolerate her diet. Her TPN has been stopped and his encouraged to increase her dietary intake and protein with Ensure drinks. An abscess fistula study has been ordered by Surgical team however as IR is not available till Saturday, it will be done at a later time. Her abdomen is soft, nontender and is there is no guarding or rigidity. Multimodal pain management is being continued but continues to taper off from pain medication. Patient is ambulating in the hallways with support. We will follow surgical team recommendations. 08/21/2025: The patient was evaluated at the bedside today with the RN present during assessment. She appears comfortable and is in no acute distress. Vital signs have remained stable, and laboratory results are within normal limits. Surgical team plans for an abscessogram with possible drain removal on Saturday. The patient continues on IV antibiotics and currently denies any complaints or concerns. 08/22/2025: The patient was evaluated at the bedside today with the RN present during assessment. She appears comfortable and is in no acute distress. Vital signs have remained stable, and laboratory results are within normal limits. Dino gical team plans for an abscessogram with possible drain removal on Saturday. Patient was seen ambulating in the hallways comfortably along with her daughter. The patient continues on IV antibiotics and currently denies any complaints or concerns. REVIEW OF SYSTEMS CONSTITUTIONAL: No fever, chills, or night sweats. NEUROLOGICAL: Denies headache, sensory and motor deficit. CARDIOVASCULAR: Denies any exertional angina, dyspnea on exertion, palpitations. PULMONARY: Denies any shortness of breath, cough, phlegm/sputum, hemoptysis, pleuritic chest pain. GASTROINTESTINAL: Denies nausea. Denies vomiting. No peritoneal signs observed. Mild abdominal discomfort at the drain sites. GENITOURINARY: Denies frequency, urgency, nocturia, hematuria or incontinence. PHYSICAL EXAM GENERAL APPEARANCE: The patient is alert, awake and oriented and bedbound. NEUROLOGICAL: No sensory and motor deficits. CHEST: Normal chest expansion. LUNGS: Normal Vesicular breath sound. Absence of any rales, rhonchi or any wheezing. CARDIOVASCULAR: Regular. S1 and S2 normal. No appreciable rubs, murmurs or gallops. ABDOMEN: Abdomen is soft and slightly tender. Ileostomy creation. Chol ecystostomy and left upper abdominal quadrant catheter in place. Absence of guarding, rigidity and rebound tenderness GENITOURINARY: No suprapubic tenderness. No costovertebral angle tenderness. Vital Signs (last 8hr) Date Time Temp Pulse Resp B/P (MAP) Pulse Ox O2 Delivery O2 Flow Rate FiO2 08/22/25 12:50 98.1 83 18 118/74 96 Room Air 08/22/25 08:44 97.7 84 16 114/75 96 Room Air LABS: Laboratory: Test 08/22/25 05:49 08/22/25 03:13 Range/Units Whole Blood Glucose 108 70-110 MG/DL White Blood Count 7.5 4.8-10.8 K/uL Red Blood Count 3.96 L 4.00-5.50 MIL/uL Hemoglobin 11.9 L 12.0-16.0 g/dL Hematocrit 35.7 L 36-48 % Mean Corpuscular Volume 90.2 79-99 fL Mean Corpuscular Hemoglobin 30.1 27.0-33.0 pg Mean Corpuscular Hemoglobin Concent 33.3 32.0-36.0 g/dL Red Cell Distribution Width 17.2 H 11.0-15.5 % Platelet Count 252 130-400 K/uL Mean Platelet Volume 9.9 7.5-10.5 fL Nucleated Red Blood Cells 0.0 0.0-0.19 % Sodium Level 125 L 136-145 mmol/L Potassium Level 4.9 3.5-5.1 mmol/L Chloride Level 96 L 101-111 mmol/L Carbon Dioxide Level 15 L 21-32 mmol/L Blood Urea Nitrogen 14 7-18 mg/dL Creatinine 0.9 0.5-1.0 mg/dL Glomerular Filtration Rate Calc 75 >90 mL/min Random Glucose 114 H 70-105 mg/dL Total Calcium 10.0 8.5-10.1 mg/dL Total Bilirubin 0.9 0.2-1.0 mg/dL Aspartate Amino Transf (AST/SGOT) 55 H 10-37 U/L Alanine Aminotransferase (ALT/SGPT) 25 12-78 U/L Alkaline Phosphatase 220 H 50-136 U/L Total Protein 8.7 H 6.0-8.3 g/dL Albumin 3.1 L 3.5-5.0 g/dL Current Medications Medications (Trade) Dose Ordered Sig/Gregory Route PRN Reason Start Time Stop Time Status Last Admin Dose Admin Acetaminophen (TYLenol 500MG TAB) 500 mg Q6H6 PRN PO MILD PAIN (1-3) 07/27/25 16:30 08/07/25 12:15 DC Acetaminophen (TYLenol 500MG TAB) 500 mg Q6H6 PRN PO MILD PAIN (1-3) 08/07/25 10:00 08/07/25 10:03 DC Acetaminophen (TYLenol 650MG SUPPOSITORY) 650 mg Q6H PRN RC MILD PAIN (1-3) 07/21/25 00:00 07/27/25 16:22 DC Acetaminophen/ Hydrocodone Bitart (NORco 5/325MG) 1 tab Q4H PRN PO MODERATE PAIN (4-6) 07/31/25 16:30 08/05/25 16:29 DC 08/05/25 14:57 1 TAB Acetaminophen/ Hydrocodone Bitart (NORco 5/325MG) 1 tab Q4H PRN PO MODERATE PAIN (4-6) 08/07/25 12:30 08/12/25 12:29 DC 08/12/25 00:46 1 TAB Acetaminophen/ Hydrocodone Bitart (NORco 5/325MG) 1 tab Q4H PRN PO MODERATE PAIN (4-6) 08/12/25 16:30 08/17/25 16:29 DC 08/17/25 10:17 1 TAB Acetaminophen/ Hydrocodone Bitart (NORco 5/325MG) 1 tab Q6H PRN PO MODERATE PAIN (4-6) 08/17/25 21:30 08/22/25 21:29 08/22/25 06:03 1 TAB Albumin Human 50 ml @ 100 mls/hr Q12H IV 08/02/25 21:30 08/05/25 09:59 DC 08/05/25 10:12 100 MLS/HR Albumin Human 50 ml @ 0 mls/hr Q12H IV 08/02/25 18:30 08/02/25 20:04 DC Albumin Human 100 ml @ 0 mls/hr ONCE IV 07/25/25 12:00 07/26/25 11:59 DC 07/25/25 13:43 100 MLS/HR Clotrimazole (Lotrimin) 1 GM BID TP 07/29/25 21:00 08/28/25 20:59 08/21/25 19:56 1 GM Cyclobenzaprine HCl (Cyclobenzaprine HCl) 5 mg TID PO 07/25/25 14:00 07/26/25 14:00 DC 07/26/25 14:19 5 MG Duloxetine HCl (CymbALTA 30 mg CAP) 30 mg BID PO 08/15/25 21:00 09/14/25 20:59 08/22/25 08:58 30 MG Fat Emulsion Intravenous 250 ml @ 42 mls/hr DAILY10 IV 08/13/25 10:00 08/19/25 10:44 DC 08/18/25 09:57 42 MLS/HR Fentanyl (DURAgesic 12 MCG/HR PATCH) 12 mcg Q72H TD 08/09/25 13:00 08/09/25 15:19 DC Fentanyl (DURAgesic 12 MCG/HR PATCH) 12 mcg Q72H TD 08/09/25 15:30 08/11/25 10:32 DC 08/09/25 15:38 12 MCG Fentanyl (DURAgesic 25 MCG/HR PATCH) 25 mcg Q72H TD 07/31/25 14:30 07/31/25 14:44 DC Fentanyl (DURAgesic 25 MCG/HR PATCH) 25 mcg Q72H TD 08/12/25 15:30 08/12/25 16:00 DC Fentanyl (DURAgesic 25 MCG/HR PATCH) 25 mcg Q72H TD 08/12/25 21:00 08/17/25 20:59 DC 08/16/25 00:02 25 MCG Fluconazole/ Sodium Chloride 100 ml @ 100 mls/hr DAILY IV 08/20/25 22:30 08/23/25 23:00 08/22/25 08:59 100 MLS/HR Fluconazole/ Sodium Chloride (DiFLUCan 200 MG/ NS 100 ML) 200 mg Q24H IVPB 07/21/25 21:00 08/20/25 20:59 DC 08/19/25 20:18 200 MG Furosemide (LASix 20MG TAB) 20 mg DAILY PO 07/25/25 11:00 08/02/25 11:53 DC 08/02/25 09:42 20 MG Gabapentin (NEURontin 100 mg CAP) 100 mg TID PO 07/29/25 14:00 08/02/25 09:21 DC 08/01/25 20:14 100 MG Gabapentin (NEURontin 100 mg CAP) 100 mg TID PO 08/11/25 21:00 09/10/25 20:59 08/22/25 08:58 100 MG Home Med (Compound Po Narcotic) HS TD 08/12/25 21:00 08/21/25 00:24 DC Hydromorphone HCl (DiLAUDid 0.5MG INJ) 0.5 mg Q4H PRN IVP SEVERE PAIN (7-10) 07/24/25 10:00 07/29/25 09:59 DC 07/29/25 08:22 0.5 MG Hydromorphone HCl (DiLAUDid 0.5MG INJ) 0.5 mg Q4H PRN IVP SEVERE PAIN (7-10) 07/29/25 13:30 08/03/25 13:29 DC 08/03/25 13:09 0.5 MG Hydromorphone HCl (DiLAUDid 0.5MG INJ) 0.5 mg Q4H PRN IVP SEVERE PAIN (7-10) 08/03/25 18:00 08/07/25 10:03 DC 08/07/25 05:09 0.5 MG Hydromorphone HCl (DiLAUDid 0.5MG INJ) 0.5 mg Q4H PRN IVP SEVERE PAIN (7-10) 08/07/25 10:00 08/11/25 10:32 DC 08/10/25 20:27 0.5 MG Hydromorphone HCl (DiLAUDid 0.5MG INJ) 0.5 mg Q6H PRN IVP SEVERE PAIN (7-10) 08/11/25 11:00 08/16/25 10:59 DC 08/15/25 16:03 0.5 MG Insulin Human Regular (humuLIN R 100 UNIT/ML 3ML) INSULIN SLIDING SCAL... ACHS SQ 07/21/25 07:30 08/20/25 07:29 DC 08/18/25 17:31 2 UNIT Ketorolac Tromethamine (toRADol) 15 mg Q8H PRN IM MODERATE PAIN (4-6) 08/15/25 18:30 08/16/25 06:57 DC 08/16/25 00:01 15 MG Lactated Ringer's 1,000 ml @ 75 mls/hr [id number] IV 07/21/25 00:00 07/21/25 13:17 DC 07/21/25 02:57 75 MLS/HR Lactated Ringer's 1,000 ml @ 75 mls/hr [id number] IV 07/21/25 13:30 07/24/25 11:09 DC 07/24/25 09:27 75 MLS/HR Lactobacillus Rhamnosus ([facility]) 1 each DAILY20 PO 07/26/25 20:00 08/25/25 19:59 08/21/25 19:53 1 EACH Lidocaine (Lidoderm Patch 5%) 1 patch DAILY TP 07/28/25 09:00 08/27/25 08:59 08/21/25 08:17 1 PATCH Lidocaine HCl/Al Hydroxide/Mg Hydroxide/ Dicyclomine HCl 20ML OR AD ONCE PO 08/06/25 16:30 08/07/25 16:29 DC 08/06/25 16:45 20 ML Magnesium Sulfate 50 ml @ 0 mls/hr PROTOCOL PRN IV MAGNESIUM PROTOCOL 07/21/25 07:00 08/20/25 06:59 DC 08/01/25 06:05 25 MLS/HR Methocarbamol (methoCARBamol) 500 mg BID PO 08/11/25 16:00 09/10/25 15:59 08/22/25 08:58 500 MG Metoclopramide HCl (regLAN 10MG IV) 5 mg BID IVP 08/04/25 21:00 09/03/25 20:59 08/22/25 08:59 5 MG Metronidazole/ Sodium Chloride (flaGYL) 500 mg Q8H IV 07/21/25 14:00 07/21/25 13:40 DC Morphine Sulfate (morPHINE 2MG SYG) 2 mg Q4H PRN IVP SEVERE PAIN (7-10) 07/21/25 00:30 07/21/25 13:18 DC 07/21/25 04:46 2 MG Morphine Sulfate (morPHINE 4MG SYG) 4 mg Q3H PRN IV MODERATE PAIN (4-6) 07/21/25 13:30 07/26/25 16:29 DC 07/26/25 10:51 4 MG Norepinephrine 250 ml @ 0 mls/hr PROTOCOL IV 07/20/25 23:30 08/03/25 08:27 DC 07/21/25 10:56 18.45 MLS/HR Ondansetron HCl (zoFRAN 4MG INJ) 4 mg Q4H PRN IVP NAUSEA 07/21/25 13:30 08/16/25 17:50 DC 08/16/25 10:23 4 MG Ondansetron HCl (zoFRAN 4MG INJ) 4 mg Q6H IVP 08/16/25 18:00 09/15/25 17:59 08/22/25 12:11 4 MG Ondansetron HCl (zoFRAN 4MG INJ) 4 mg Q6H PRN IV NAUSEA/VOMITING 07/21/25 00:00 07/21/25 13:18 DC Pantoprazole Sodium (PROTonix 40MG INJ) 40 mg BID IV 07/26/25 21:00 08/20/25 08:59 DC 08/19/25 20:16 40 MG Pantoprazole Sodium (PROTonix 40MG INJ) 40 mg BID IVP 08/05/25 21:00 08/06/25 08:39 DC 08/05/25 20:25 40 MG Pantoprazole Sodium (PROTonix 40MG INJ) 40 mg DAILY IV 07/21/25 09:00 07/26/25 09:31 DC 07/26/25 08:55 40 MG Pharmacy Profile Note (Pharmacy Communication) 1 each ONCE MISC 07/21/25 15:30 07/21/25 15:16 DC Pharmacy Profile Note (Pharmacy Communication) 1 each ONCE MISC 08/16/25 16:00 08/15/25 21:12 DC Pharmacy Profile Note (Pharmacy Communication) 1 each ONCE MISC 08/06/25 16:00 08/07/25 07:07 DC Piperacillin Sod/ Tazobactam Sod 50 ml @ 200 mls/hr ONCE STAT IVPB 07/20/25 19:15 07/20/25 19:29 DC 07/20/25 20:32 200 MLS/HR Piperacillin Sod/ Tazobactam Sod (Zosyn 3.375gm+NS 50ml) 3.375 gm Q12H IV 07/21/25 00:00 07/31/25 00:00 DC 07/30/25 23:55 3.375 GM Piperacillin Sod/ Tazobactam Sod (Zosyn 3.375gm+NS 50ml) 3.375 gm Q8H IVPB 07/31/25 11:30 08/10/25 11:29 DC 08/10/25 04:05 3.375 GM Piperacillin Sod/ Tazobactam Sod (Zosyn 3.375gm+NS 50ml) 3.375 gm Q8H IVPB 08/20/25 23:00 08/23/25 23:00 08/22/25 06:05 3.375 GM Piperacillin Sod/ Tazobactam Sod (Zosyn 3.375gm+NS 50ml) 3.375 gm Q8H IVPB 08/10/25 13:00 08/20/25 12:59 DC 08/20/25 04:32 3.375 GM Potassium Chloride 100 ml @ 100 mls/hr AD PRN IV POTASSIUM PROTOCOL 07/24/25 08:30 08/23/25 08:29 07/30/25 06:23 100 MLS/HR Potassium Chloride (K-Dur/Klor-Con 20meq) 20 meq AD PRN PO POTASSIUM PROTOCOL 07/24/25 08:30 08/23/25 08:29 07/27/25 20:33 20 MEQ Potassium Chloride (KCl 10% Elixir 20meq/15ml) 20 meq AD PRN PO POTASSIUM PROTOCOL 07/24/25 08:30 08/23/25 08:29 07/31/25 08:15 20 MEQ Psyllium Hydrophilic Mucilloid (Metamucil) 1 tbs BID PO 07/26/25 21:00 08/25/25 20:59 08/22/25 08:58 1 TBS Simethicone (Mylicon) 80 mg Q6H6 PO 07/27/25 12:00 08/26/25 11:59 08/22/25 12:09 80 MG Sodium Bicarbonate 150 meq/Sodium Chloride 1,150 ml @ 0 mls/hr Q0M IVP 07/21/25 14:00 07/26/25 09:31 DC Sodium Chloride (NS 50ml) 50 ml AD IV 07/31/25 11:30 07/31/25 11:12 DC Sodium Chloride (NS 50ml) 50 ml AD IV 08/20/25 22:30 08/20/25 22:43 DC Sodium Chloride (Normal Saline Flush) 10 ml Q8H IJ 08/09/25 11:00 09/08/25 10:59 08/22/25 03:00 10 ML Spironolactone (Aldactone 25mg) 25 mg BID PO 07/25/25 21:00 07/26/25 09:01 DC 07/26/25 08:56 25 MG Sucralfate (Carafate) 1 gm ACHS PO 07/29/25 21:00 08/28/25 20:59 08/22/25 12:09 1 GM Thiamine HCl (Vitamin B-1) 100 mg DAILY IVP 07/22/25 21:00 08/21/25 20:59 DC 08/21/25 08:15 100 MG Thiamine HCl 100 mg/Sodium Chloride 50 ml @ 100 mls/hr Q24H IM 07/21/25 15:30 07/21/25 16:25 DC Vancomycin HCl (Vancomycin 1g/ 250ml Kit) 1 gm ONCE STAT IV 07/20/25 21:23 07/20/25 21:26 DC 07/20/25 22:06 1 GM Vasopressin 20 units/Sodium Chloride 100 ml @ 0 mls/hr PROTOCOL IV 07/21/25 00:30 08/03/25 08:27 DC 07/21/25 00:10 9 MLS/HR DIAGNOSTICS / RADIOLOGY: [ ] ASSESSMENT: Suspected Bowel Perforation/ Anastomotic Leak POA Acute cholecystitis, not POA s/p Cholecystotomy tube placement 08/02/2025 Bilious peritonitis s/p Diagnostic laparoscopy, abdominal washout, drain placement and diverting loop ileostomy creation Perisplenic and infrasplenic fluid collection with splenomegaly - suspected abscess s/p drainage with catheter placement Hyponatremia, resolved Bacterial peritonitis [ESBL Ecoli], resolved Cholelithiasis Atrophic vaginitis Hyperkalemia, resolved Iron Deficiency anemia, POA Diabetes Mellitus Type 2 POA Acute Kidney Injury POA, resolved Septic Shock POA, resolved Cirrhosis of liver POA Esophageal Varices Recent Robotic takedown of splenic flexure mobilization, robotic takedown of colovesical fistula with sigmoid colectomy and end-to-end anastomosis surgery PLAN: Bilious peritonitis status post Diagnostic laparoscopy, abdominal washout, drain placement and diverting loop ileostomy creation -Continue close monitoring of the patient -continue physical therapy -No output in CHRIS drain. Follow up with surgery regarding CHRIS drain removal. -Continue Zosyn [day 33] and fluconazole [day 33]. -Probiotics and Fibers have been added for bloating. -Continue Protonix 40mg IV BID - Continue [place] 5 mg q.4h p.r.n.,for pain management - As per surgery, continue methocarbamol and gabapentin. Perisplenic and infrasplenic fluid collection with splenomegaly * CT scan showed perisplenic and infrasplenic fluid collection measuring 6.0 x 6.1 x 8.9 cm, splenomegaly, with spleen measuring 15.2 cm * IR drained the perisplenic and intra splenic fluid with placement of drainage catheter. * Cultures resulted in now growth * Continue Zosyn and fluconazole * Plan to remove splenic drainage catheter after abscess fistula study Bacterial Peritonitis, resolved * Post Surgical patient with Bacterial peritonitis positive for ESBL * Culture and sensitivity shows susceptibility to Zosyn, Gentamicin and Merop enem. * Likely secondary to post-operative intraabdominal infection with risk of ongoing contamination. * Currently patient is on Zosyn (Day 33) Cholelithiasis * Patient complained of upper abdominal pain * Ultrasound abdomen showed: Cirrhotic-appearing liver * Cholelithiasis and biliary sludge with gallbladder distension and Small volume ascites. * Hida scan shows acute cholecystitis. * IR did a Fluoroscopy and ultrasound-guided placement of cholecystotomy tube and cholecystogram on 08/02/2025. * IR evaluated patient in the cardiac cath lab radiology technologist for cholecystostomy tube placement. Patient was found to have normally positioned tube with some stones for which the tube was flushed.. Small Bowel Obstruction (Resolved) * Abdominal Xray showed: Dilated small bowel loops are seen in mid abdomen * Pain management(avoid excess opioids if ileus is suspected) * Monitor for resolution vs progression of Ileus/obstruction. 07/29/25 Bowel Perforation, Dehiscence of the anastomosis - Patient had repair of colovesicular fistula with sigmoid colon resection and anastomosis on 07/09/25. - CT abdominal pelvis w/contrast done on 07/20/2025 showed Free air in the upper abdomen is seen, suggesting perforated bowel vs post surgical changes. No obstruction. - underwent Diagnostic laparoscopy, abdominal washout, drain placement and diverting loop ileostomy creation for biliary peritonitis Iron Deficiency anemia * Hemoglobin today is 9.6. * Anemia panel has been ordered. Results showed Iron 24L, %sat 16.3 and TIBC 147L. 07/30/25 * Received 2 doses of Iron sucrose (venofer) so far Recommend trending Hgb and transfuse as needed to goal Hgb >7 Acute Kidney Injury, Resolved * Creatinine improved * Initial FeNA is 0.1 %, probably secondary to dehydration and NSAIDs overuse. * initial Urine sodium is < 13 and urine creatinine is 132.17. * Avoid nephrotoxic agents, eg. NSAIDS. * Weight patient daily. * Monitor intake and output. Supportive measures - Multimodal pain management - Duloxetine started. -Maintain IV fluids, correct electrolytes -Serial abdominal exams -Head Lineman on avoidance of NSAIDS and other related triggers. -Monitor Vitals and perform morning labs regularly Continue GI prophylaxis with Pantop Continue DVT prophylaxis with SCDs, we will avoid heparin due to history of allergies to porcine ATTESTATION BY PHYSICIAN I have seen and examined the patient. I reviewed the documentation, medical decision making, and treatment plan as noted by the resident physician above. I agree with the findings and plan of care. AYAKA BARR MD, HARSHAVARDHA MD Aug 22, 2025 15:31
[2025-08-22 20:01] LABS: CREATININE,URINE RANDOM 70.81 mg/dL (30-135)
[2025-08-23] VITALS (7 sets, daily range): BP systolic 107–122; BP diastolic 64–78; PULSE 78–92; RESP 16–18; TEMP 97–98.3; O2SAT 95–98
[2025-08-23 05:02] LABS: IMMATURE GRANULOCYTE ABSOLUTE 0.06 K/uL (0-1); NUCLEATED RED BLOOD CELLS 0.0 % (0.0-0.19); PLATELET COUNT (AUTO) 204 K/uL (130-400); RED BLOOD CELL COUNT(AUTO) 3.77 MIL/uL (4.00-5.50); RED CELL DISTRIBUTION WIDTH 17.0 % (11.0-15.5); WHITE BLOOD COUNT (AUTO) 6.4 K/uL (4.8-10.8)
[2025-08-23 06:19] LABS: ASPARTATE AMINOTRANSFERASE 44.0 U/L (10-37); CREATININE 1.0 mg/dL (0.5-1.0); GLOMERULAR FILTR. RATE CALC 66.0 mL/min (>90); GLUCOSE,RANDOM 94.0 mg/dL (70-105); SODIUM SERUM 124.0 mmol/L (136-145); TOTAL PROTEIN, SERUM 8.4 g/dL (6.0-8.3); UREA NITROGEN, BLOOD 14.0 mg/dL (7-18)
[2025-08-23] MEDS: ZOSYN 3.375GM +NS 50ML IVPB SCH (09:04)
--- NOTE | 2025-08-23 12:40 | PN ---
[facility] PROGRESS NOTE Date of Service: Aug 23, 2025 Time of Service: 12:40 SUBJECTIVE: Ms. Gray is a 55-year-old female that was seen and examined today on 07/20/2025. Patient reports that she came to the emergency department with a chief complaint of abdominal pain. Onset was 07/09/2025. Location is all four quadrants. Duration is constant. Character is described as pressure and " like I have a lot of gas trapped. " there was no alleviating factors. There was no aggravating factors. Patient reports associated abdominal swelling. 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 After the discharge she was taking pain medications and her condition started worsening after few days. She is in constant follow up with Dr Gann. Today in the emergency department WBCs 21.2, left shift neutrophils 85.5%, BUN 26, creatinine 3.1, GFR 17, lactic acid 8.0, no urinalysis has been collected or sent to lab, CT of abdomen and pelvis showed of free air in the abdomen which could be a suspected bowel perforation versus postsurgical changes, moderate ascites, fissure post surgical changes. Chest x-ray shows right pleural effusion. Additionally patient had a heart rate of 125, respirations 26, together with leukocytosis and lactic acidosis patient met clinical sepsis criteria additionally patient's blood pressure dropped to 85/50 mmHg requiring vasopressor support therefore meeting criteria for septic shock. Patient will be admitted to the intensive care unit. Emergency room physician spoke with patient's surgeon, Dr. Gann who requested patient be admitted under hospitalist service and she will follow this case along. 07/21/25 Patient was evaluated at the bedside. She was accompanied by her daughter. She is oriented to the time, place and person. She complained of abdominal pain in all the quadrants. She hasn't had bowel movement since Saturday and also is unable to pass flatus at this time. She has guarding, rigidity and tenderness all over the abdomen, showing the signs of peritonitis. She was seen by Dr Gann this m and is planned to be taken to OR this afternoon. Dueñas catheter is in place, as she wasn't able to pass the urine. There is no fever, chills and any other signs of infection. 07/22/25 Patient was evaluated at the bedside. She was accompanied by her daughter. She is oriented to the time, place and person. She underwent Diagnostic laparoscopy, abdominal washout, drain placement and diverting loop ileostomy creation, The procedure revealed Bilious peritonitis, 2 mm perforation of the colonic anastomosis. She is hemodynamically stable with Blood pressure of 110/73 and HR of 83. Currently she complains of abdominal pain which is getting better than yesterday, its 3-4/10 intensity. There is no rigidity. She is anxious about the outcomes and had discussion regarding her current clinical status and lab parameters. There is no fever, chills and any other signs of infection. 07/23/25 Patient was evaluated at the bedside. She was accompanied by her daughter. She is oriented to the time, place and person. She status post diagnostic laparoscopy, abdominal washout, drain placement and diverting loop ileostomy creation. Currently she complains of abdominal pain which is 5/10 intensity. She also complaints of mild lower back pain There is no fever, chills and any other signs of infection. She has CHRIS drain in-situ with clear fluid along with colostomy bag. She is currently tolerating clear liquid diet. 07/24/2025 Patient is seen and examined at the bedside. Vitals blood pressure ranging in 100s/50s, pulse rate 50s, SpO2 greater than 95% on room air. She mentions about experiencing pressure-like discomfort on the right side of the abdomen and pain when she tries to eat. No acute events last night. She denies fever, chills, nausea, vomiting, chest pain. CHRIS output approximately 100cc/hr, serosanguineous fluid. Ileostomy bag in place. She is tolerating clear liquid diet without any nausea/vomiting. Labs hemoglobin 9.8, BUN 38, creatinine improved from 1.6-1.1. 07/25/2025 Patient is seen and examined at the bedside. She complains of abdominal pain which is 7/10 in intensity. No acute events last night. She denies fever, chills, nausea, vomiting, chest pain. CHRIS output approximately 100cc/hr, serosanguineous fluid. Ileostomy bag in place. The patient has been started on spironolactone 25mg BID and Lasix 20 mg once daily. There is high output from CHRIS but it is clear serous, most likely related to her ascites from her history of liver cirrhosis. She is tolerating clear liquid diet without any nausea/vomiting. 07/26/2025 Patient is seen and examined at the bedside. She complains of abdominal pain which remains constant. No acute events last night. She denies fever, chills, nausea, vomiting, chest pain. Patient is status post with a CHRIS drain. The drain has been collecting the serosanguineous fluid secondary to ascites. She has been tolerating liquid diet and her diet has been advanced to soft diet. She still h as bloating for which probiotics and fibers has been recommended. Hemoglobin has gradually trended down to 9.2 and was given IV Venofer. Patient to get up and ambulate and work with physical therapy. 07/27/2025 Patient is seen and examined at the bedside. She complains of abdominal pain which is 6/10 in intensity. No acute events last night. She denies fever, chills, nausea, vomiting, chest pain. Patient is unable to tolerate the soft diet, hence she is currently receiving the liquid diets. The CHRIS drain output is still high and there was small amount of drainage observed in the right ileostomy. 07/28/2025 Patient is seen and examined at the bedside. She complains of abdominal pain which is 9/10 in intensity. No acute events last night. She denies fever, chills, nausea, vomiting, chest pain. Patient reported pain after eating but no nausea or vomiting. WBC is gradually trending up from 8.3-7.3-11.1-11.8. She had lidocaine patch placed this morning. She was started on simethicone 80 mg yesterday. Pertinent she is currently receiving Dilaudid 0.5 mg. Abdominal ultrasound has been ordered for further assessment. 07/29/2025 Patient is seen and examined at the bedside. She continues to complain of severe abdominal pain, rated 9/10 in intensity, unchanged from prior. She is currently receiving Dilaudid 0.5 mg for pain. She reports discomfort related to Dueñas catheterization. She denies fever, chest pain, nausea or vomiting at this time. No acute events were reported overnight. Blood pressure noted today is noted to be 98/54 mm Hg which is slightly low. Per surgery team, stoma is likely to be removed today. Hemoglobin has trended down from 9.7 g/dl to 9.0 g/dl. 07/30/2025 Patient is seen and examined at the bedside. She continues to complain of severe abdominal pain. Her abdominal distention has slightly improved. Dueñas's catheter was removed due to persistent discomfort. We will continue with scheduled removal of the ascites fluid and from CHRIS bulb. Ultrasound of abdomen was concerning for cholelithiasis with biliary sludge and gallbladder distention. HIDA scan was performed today. If consistent with cholecystitis patient will need cholecystostomy tube placement. 07/31/2025 Patient is seen and examined at the bedside. She was accompanied by her daughter. She continues to complain of severe abdominal pain. She is currently on Dilaudid 0.5mg Q4H PRN, which relieves the symptoms for 2-3 hours, after that she develops same level of pain and discomfort again. Currently awaiting the HIDA scan results. Her sodium level is 133 and albumin level is trending downwards from 2.3 to 2.1. Her Iron panel results showed: Iron 20L, TIBC 147L and %sat 16.3L. For her continuos pain she is started on Fentanyl 25mcg. CHRIS drain culture has beens sent. Based on the results of HIDA scan, CT chest will be planned. 08/01/2025: Patient is seen and examined this morning at bedside. She was accompanied by her daughter. The patient complains of severe abdominal pain. She is currently being managed with Fluker, and Dilaudid for breakthrough pain. HIDA scan results are back, and show acute cholecystitis. Surgery has been made aware of the results. IR has been consulted for cholecystostomy tube placement. The patient will be started on PPN, as recommended by general surgery. The patient follows with Dr. Sol outpatient for her liver cirrhosis. The patients daughter would like her forming machine upkeep mechanic helper Dr. Sol to be involved in the patients care, and be updated with her status. 08/02/2025: Patient is seen and evaluated in the room 432. She was accompanied by her daughter. She complains of severe abdominal pain. She also complained of bleeding through her vagina, pink tinged urine. Her vitals are in the normal range. Her labs are in the normal range except for Hb is 8.6, Na is 135, K is 5.2, BUN is 4, Glucose is 150, CRP is 103.90. She went for placement of cholecystectomy tube by IR. We did a pelvic exam and ordered a vaginal estrogen cream and urinalysis. Also for her hyperkalemia we checked the potassium again and its 4.1. So we will repeat the labs tomorrow. We ordered a dose of albumin for her. 08/03/2025: Patient is seen and evaluated in the room 432. She has mild abdominal pain today. Her pain improved after the placement for cholecystotomy tube. Her vitals are in the normal range. Her labs are normal except for hemoglobin 8.2, glucose 156, CRP 89.8. Her aerobic and anaerobic culture of drain showed no growth. Gastroenterology saw the patient and they recommended 25 grams of 25% IV albumin q12H for 3 days. Her bleeding through the vagina decreased. The drainage through the left abdomen is 100ml, right abdomen is 20ml, left anterior abdomen 5ml. 08/04/2025: Patient is seen and evaluated in the room 432. She has abdominal pain today. Her vitals are in the normal range. Her labs are normal except for Hb is 8, CRP is 72.10, glucose is 130. Aerobic and anaerobic drain culture showed no growth. She is not able to tolerate her food. The drainage through the left abdomen is 100ml, right abdomen is 20ml, left anterior abdomen 5ml. Gastroenterology is planning to do EGD tomorrow. Surgery wanted to do a CT abdomen and pelvis with IV contrast. CT scan showed perisplenic and infrasplenic fluid collection measuring 6.0 x 6.1 x 8.9 cm, splenomegaly, with spleen measuring 15.2 cm, cholecystostomy tube in situ with decompressed gallbladder, abdominal drain in situ with tip in the pelvis. We ordered T.bilirubin and we will monitor the output from colostomy tube. We are also planning to add metoclopramide. 08/05/2025: Patient is seen and evaluated in the room 432. She has abdominal pain today. Her abdomen is tender to touch and warm. Her vital signs are in the normal range except for BP is 117/45. Her labs are normal except for Hb is 8.2, sodium is 135, creatinine is 0.3, CRP is 60.9 The drain output from left abdomen is 40ml, left anterior abdomen 0ml, right abdomen 0ml. Her saturation is 100% on 10L of O2. Her labs are in the normal range except for Hb is 8.2, HCT is 25.9, sodium is 135, glucose is 107, CRP is 60.90. She underwent endoscopy today and they did biopsy from 3 sites. GI said that they will consult radiology to check whether CHRIS drain and cholecystostomy tube are in place. General surgery will consult IR to evaluate perisplenic fluid collection for potential aspiration. 08/06/2025: Patient is seen and evaluated in the room 432. She has abdominal pain today. Her abdomen is tender to touch and warm. Her vital signs are in the normal range except for 97/63. Her labs are in the normal range except for Hb is 8.1, sodium is 135, blood glucose is 151, CRP 53.60. We are waiting for IR consult for evaluation and for potential aspiration of perisplenic fluid. The drain output from right abdomen is 20ml. 08/07/2025: Patient is seen and evaluated in the room 432. She has abdominal pain today. Her abdomen is tender to touch and warm. Her vital signs are in the normal range except for blood pressure which is 102/60. Her labs are in the normal range except for Hb is 8.5, WBC is 4.4, RDW is 17.3, sodium is 134, glucose is 147. We are waiting for IR consult for evaluation and for potential aspiration of perisplenic fluid. The drain output from right abdomen is 20ml. The SQL SERVER DBA DEVELOPER told me that she eats her food after taking her pain medications. Nurse is planning to start full liquid diet for lunch. 08/08/2025: She was evaluated at the bedside this morning. She is AAO x3. she complained of epigastric pain which gets worse with food . Moderate tenderness was appreciated on the epigastric region. Her blood pressure is 99/46, pulse 80. Remarkable lab is for WBC of 4.8, hemoglobin 9, CRP 43.90. She is scheduled with IR for perisplenic fluid aspiration and checking the position of cholecystostomy tube. She is on full liquid diet. She is on Zosyn, fluconazole. Surgery, GI, ID on the board. Rest of the plan as discussed below. 08/09/2025: Patient went to corn lab technician for PROCEDURE. As per nurse, her cholecystostomy tube was already correctly positioned but had some stones so tube was flushed. She complained of epigastric and pelvic pain. For pain control, fentanyl patch has been ordered. She is pending perisplenic fluid aspiration by IR. Her blood pressure is 98/58, pulse 90. She is currently NPO. She is on Zosyn, fluconazole. Surgery, GI, ID on the board. Rest of the plan as discussed below. 08/10/2025: Patient was seen and examined at bedside. She underwent CT GUIDED PERISPLENIC PIGTAIL DRAINAGE CATHETER PLACEMENT with Aspiration of perisplenic fluid. There has been 25 ml sanguinous drainage so far in the catheter. Her cholecystostomy tube has had 30 mL drainage in the past 24 hours. She is currently on clear liquid diet tolerating it well. She continues to complain pain in her abdomen without any peritoneal signs. She was started on fentanyl patch yesterday. Gram stain and body fluid culture were sent after drainage of perisplenic abscess which showed RARE GRAM POSITIVE COCCI after 1 day. Patient is currently on Zosyn. 08/11/2025: Patient was seen and examined. She continues to complain of abdominal pain. Her multimodal pain medications were adjusted with fentanyl increased to 25mcg and Dilaudid frequency changed from q.4h to q.6h. She is currently on clear liquid diet and complains of pain while eating. She continues on Zosyn and fluconazole. We are waiting for culture results after drainage of perisplenic abscess. Incision site is clean, dry and intact. Will continue to follow recommendations from ID, General surgery and Nephrology. 08/12/2025: Patient was seen and examined at bedside. She complained of pain in right upper abdomen as well as left lower quadrant, along the drainage catheter insertion. No peritoneal signs present. She is currently on multimodal pain management. Today, we are advancing her to full liquid diet. Culture results have been negative so far. Incision site is clean, dry and intact. Will continue to follow recommendations from ID, General surgery and Nephrology. 08/13/2025: Patient was seen and examined at bedside. She complained of pain in right upper quadrant and left quadrant of abdomen along the line of drainage catheter placement. Comparatively, her pain is better than yesterday and patient states that she feels pain in between pain medication. No peritoneal signs are present. We will follow up with General surgery for CHRIS drain removal as there has been 0 to minimal drainage in the past few days. Patient is currently on full liquid diet. 08/14/2025 Patient is seen and examined at the bedside. She complains of intermittent pain in the left upper quadrant near the drainage catheter site which is well controlled with pain medications. No acute events last night. Vitals blood pressure in 90s/50s. Urine output 1.4 L, stool 1.2 L [ileostomy bag], 23 mL from left abdominal drain, 20 mL from right abdominal drain, 15 mL from RUQ drain over the last 24 hours. She denies fever, chills, chest pain/shortness of breath, tingling/numbness/pain in bilateral lower extremities. She is able to tolerate GI soft/bland diet without any nausea/vomiting. Labs WBC 4.1, hemoglobin stable at 8.9. We will continue parenteral nutrition. 08/15/2025: Patient was seen and examined this morning at bedside. The patient reports continued abdominal pain, worse on her left upper quadrant. The patient states that when she takes her pain medication, the pain resolves. However, without the pain medication, the patient reports that the pain remains prominent. Duloxetine will be started for its dual benefit in managing the abdominal pain and addressing potential underlying mood symptoms that may be amplifying the patients pain perception. I educated the patient on importance of eating her GI soft diet. We will continue to follow ID and surgery recommendations. 08/16/2025: Patient was seen and examined this morning at bedside in room 432. Patient admits to have continued nausea since yesterday and is unable to tolerate any food. Her CHRIS drain was removed yesterday and still continues to have left upper quadrant and right upper quadrant drains. Patient is discontinued from Dilaudid and is currently managed with p.r.n. Fluker q.4. Dr. Gann recommended to reduce the dose of TPN to 40 mL to assess if patient's appetite improves. They also changed metoclopramide to scheduled q.12. We will follow the surgery and ID recommendations. 08/17/2025: Patient was examined at bedside in room 432. Patient reports improved nausea and is able to tolerate fruits however still does not have appetite for regular meals. Patient reports mild abdominal tenderness however denies fever, nausea, vomiting. Patient has no abdominal rigidity. Patient has abdominal drains have minimal drainage and shows no signs of infection. We encouraged the patient to eat GI soft diet as tolerated. We will continue to follow recommendations from ID and surgery. 08/18/2025: Patient was examined at bedside in room 432. Patient reports improved nausea and is able to tolerate her diet however only completes 25-50% of her meals. Her TPN rate was reduced to 20 mL/hour. Patient has mild abdominal tenderness at the right cholecystostomy drain site and left upper quadrant drain, without signs of infection. Patient has ileostomy bag was replaced yesterday for leakage and shows cleared fluid. We encouraged the patient to complete her meals. Surgical team is planning to discharge the patient by the end of the week and we will follow their recommendations closely. 08/19/2025: Patient was examined at bedside in room 432. Patient reports improved nausea and is able to tolerate her diet, however does not complete her meals. Her TPN and fat emulsions will be stopped today and is encouraged to increase dietary intake and protein with Ensure drinks. The surgical team plans to remove her left upper quadrant drain after performing an abscess fistula study. In the meantime case management has been consulted for possible placement in a retirement versus home health care. Otherwise patient remained afebrile, mild abdominal pain around the drainage catheter sites, no guarding or rigidity. We will follow the surgical team recommendations closely and anticipate her discharge by the end of the week. 08/20/2025: Patient was examined at bedside in room 432. Patient reported improved nausea and is able to tolerate her diet. Her TPN has been stopped and his encouraged to increase her dietary intake and protein with Ensure drinks. An abscess fistula study has been ordered by Surgical team however as IR is not available till Saturday, it will be done at a later time. Her abdomen is soft, nontender and is there is no guarding or rigidity. Multimodal pain management is being continued but continues to taper off from pain medication. Patient is ambulating in the hallways with support. We will follow surgical team recommendations. 08/21/2025: The patient was evaluated at the bedside today with the RN present during assessment. She appears comfortable and is in no acute distress. Vital signs have remained stable, and laboratory results are within normal limits. Surgical team plans for an abscessogram with possible drain removal on Saturday. The patient continues on IV antibiotics and currently denies any complaints or concerns. 08/22/2025: The patient was evaluated at the bedside today with the RN present during assessment. She appears comfortable and is in no acute distress. Vital signs have remained stable, and laboratory results are within normal limits. Dino gical team plans for an abscessogram with possible drain removal on Saturday. Patient was seen ambulating in the hallways comfortably along with her daughter. The patient continues on IV antibiotics and currently denies any complaints or concerns. 08/23/2025: The patient was evaluated at bedside today with attending present. She appears comfortable and is in no acute distress and denies any abdominal pain. Patient still has the ileostomy bag and the left upper quadrant drain in place. Ileostomy bag has serous fluid collection had been involved drainage in the left upper quadrant drain. Patient is pending abscess of g today to evaluate for removal of splenic drain. We encouraged the patient to increase her dietary intake and also included pain at better in her breakfast to improve salt intake. We will follow up for the surgical team for further recommen dations. REVIEW OF SYSTEMS CONSTITUTIONAL: No fever, chills, or night sweats. NEUROLOGICAL: Denies headache, sensory and motor deficit. CARDIOVASCULAR: Denies any exertional angina, dyspnea on exertion, palpitations. PULMONARY: Denies any shortness of breath, cough, phlegm/sputum, hemoptysis, pleuritic chest pain. GASTROINTESTINAL: Denies nausea. Denies vomiting. No peritoneal signs observed. Mild abdominal discomfort at the drain sites. GENITOURINARY: Denies frequency, urgency, nocturia, hematuria or incontinence. PHYSICAL EXAM GENERAL APPEARANCE: The patient is alert, awake and oriented and bedbound. NEUROLOGICAL: No sensory and motor deficits. CHEST: Normal chest expansion. LUNGS: Normal Vesicular breath sound. Absence of any rales, rhonchi or any wheezing. CARDIOVASCULAR: Regular. S1 and S2 normal. No appreciable rubs, murmurs or gallops. ABDOMEN: Abdomen is soft and slightly tender. Ileostomy creation. Cholecystostomy and left upper abdominal quadrant catheter in place. Absence of guarding, rigidity and rebound tenderness GENITOURINARY: No suprapubic tenderness. No costovertebral angle tenderness. Vital Signs (last 8hr) Date Time Temp Pulse Resp B/P (MAP) Pulse Ox O2 Delivery O2 Flow Rate FiO2 08/23/25 11:20 98.2 92 18 113/69 98 Room Air 08/23/25 08:56 98.1 88 18 107/72 97 Room Air LABS: Laboratory: Test 08/23/25 10:59 08/23/25 04:40 08/22/25 19:40 Range/Units Whole Blood Glucose 133 H 70-110 MG/DL White Blood Count 6.4 4.8-10.8 K/uL Red Blood Count 3.77 L 4.00-5.50 MIL/uL Hemoglobin 11.2 L 12.0-16.0 g/dL Hematocrit 34.4 L 36-48 % Mean Corpuscular Volume 91.2 79-99 fL Mean Corpuscular Hemoglobin 29.7 27.0-33.0 pg Mean Corpuscular Hemoglobin Concent 32.6 32.0-36.0 g/dL Red Cell Distribution Width 17.0 H 11.0-15.5 % Platelet Count 204 130-400 K/uL Mean Platelet Volume 9.3 7.5-10.5 fL Immature Granulocyte % (Auto) 0.9 0-1 % Neutrophils (%) (Auto) 70.6 40.0-77.0 % Lymphocytes (%) (Auto) 15.6 L 21.0-51.0 % Monocytes (%) (Auto) 9.7 3.0-13.0 % Eosinophils (%) (Auto) 2.6 0.0-8.0 % Basophils (%) (Auto) 0.6 0.0-5.0 % Neutrophils # (Auto) 4.5 1.8-7.7 K/uL Lymphocytes # (Auto) 1.0 1.0-4.8 K/uL Monocytes # (Auto) 0.6 0.1-1.0 K/uL Eosinophils # (Auto) 0.17 0.00-0.70 K/uL Basophils # (Auto) 0.04 0.00-0.20 K/uL Absolute Immature Granulocyte (auto 0.06 0-1 K/uL Nucleated Red Blood Cells 0.0 0.0-0.19 % Sodium Level 124 L 136-145 mmol/L Potassium Level 4.6 3.5-5.1 mmol/L Chloride Level 96 L 101-111 mmol/L Carbon Dioxide Level 18 L 21-32 mmol/L Blood Urea Nitrogen 14 7-18 mg/dL Creatinine 1.0 0.5-1.0 mg/dL Glomerular Filtration Rate Calc 66 >90 mL/min Random Glucose 94 70-105 mg/dL Total Calcium 9.6 8.5-10.1 mg/dL Magnesium Level 1.70 L 1.80-2.40 mg/dL Total Bilirubin 1.0 0.2-1.0 mg/dL Aspartate Amino Transf (AST/SGOT) 44 H 10-37 U/L Alanine Aminotransferase (ALT/SGPT) 24 12-78 U/L Alkaline Phosphatase 209 H 50-136 U/L Total Protein 8.4 H 6.0-8.3 g/dL Albumin 2.9 L 3.5-5.0 g/dL Urine Random Creatinine 70.81 30-135 mg/dL Urine Random Sodium < 13 L 40-220 mmol/l Urine Random Potassium 12 L 25-125 mmol/L Urine Random Chloride 22 L 110-250 mmol/L Current Medications Medications (Trade) Dose Ordered Sig/Gregory Route PRN Reason Start Time Stop Time Status Last Admin Dose Admin Acetaminophen (TYLenol 500MG TAB) 500 mg Q6H6 PRN PO MILD PAIN (1-3) 07/27/25 16:30 08/07/25 12:15 DC Acetaminophen (TYLenol 500MG TAB) 500 mg Q6H6 PRN PO MILD PAIN (1-3) 08/07/25 10:00 08/07/25 10:03 DC Acetaminophen (TYLenol 650MG SUPPOSITORY) 650 mg Q6H PRN RC MILD PAIN (1-3) 07/21/25 00:00 07/27/25 16:22 DC Acetaminophen/ Hydrocodone Bitart (NORco 5/325MG) 1 tab Q4H PRN PO MODERATE PAIN (4-6) 07/31/25 16:30 08/05/25 16:29 DC 08/05/25 14:57 1 TAB Acetaminophen/ Hydrocodone Bitart (NORco 5/325MG) 1 tab Q4H PRN PO MODERATE PAIN (4-6) 08/07/25 12:30 08/12/25 12:29 DC 08/12/25 00:46 1 TAB Acetaminophen/ Hydrocodone Bitart (NORco 5/325MG) 1 tab Q4H PRN PO MODERATE PAIN (4-6) 08/12/25 16:30 08/17/25 16:29 DC 08/17/25 10:17 1 TAB Acetaminophen/ Hydrocodone Bitart (NORco 5/325MG) 1 tab Q6H PRN PO MODERATE PAIN (4-6) 08/17/25 21:30 08/22/25 21:29 DC 08/22/25 19:25 1 TAB Albumin Human 50 ml @ 100 mls/hr Q12H IV 08/02/25 21:30 08/05/25 09:59 DC 08/05/25 10:12 100 MLS/HR Albumin Human 50 ml @ 0 mls/hr Q12H IV 08/02/25 18:30 08/02/25 20:04 DC Albumin Human 100 ml @ 0 mls/hr ONCE IV 07/25/25 12:00 07/26/25 11:59 DC 07/25/25 13:43 100 MLS/HR Clotrimazole (Lotrimin) 1 GM BID TP 07/29/25 21:00 08/28/25 20:59 08/22/25 21:20 30 GM Cyclobenzaprine HCl (Cyclobenzaprine HCl) 5 mg TID PO 07/25/25 14:00 07/26/25 14:00 DC 07/26/25 14:19 5 MG Duloxetine HCl (CymbALTA 30 mg CAP) 30 mg BID PO 08/15/25 21:00 09/14/25 20:59 08/23/25 09:15 30 MG Fat Emulsion Intravenous 250 ml @ 42 mls/hr DAILY10 IV 08/13/25 10:00 08/19/25 10:44 DC 08/18/25 09:57 42 MLS/HR Fentanyl (DURAgesic 12 MCG/HR PATCH) 12 mcg Q72H TD 08/09/25 13:00 08/09/25 15:19 DC Fentanyl (DURAgesic 12 MCG/HR PATCH) 12 mcg Q72H TD 08/09/25 15:30 08/11/25 10:32 DC 08/09/25 15:38 12 MCG Fentanyl (DURAgesic 25 MCG/HR PATCH) 25 mcg Q72H TD 07/31/25 14:30 07/31/25 14:44 DC Fentanyl (DURAgesic 25 MCG/HR PATCH) 25 mcg Q72H TD 08/12/25 15:30 08/12/25 16:00 DC Fentanyl (DURAgesic 25 MCG/HR PATCH) 25 mcg Q72H TD 08/12/25 21:00 08/17/25 20:59 DC 08/16/25 00:02 25 MCG Fluconazole/ Sodium Chloride 100 ml @ 100 mls/hr DAILY IV 08/20/25 22:30 08/23/25 23:00 08/23/25 09:06 100 MLS/HR Fluconazole/ Sodium Chloride (DiFLUCan 200 MG/ NS 100 ML) 200 mg Q24H IVPB 07/21/25 21:00 08/20/25 20:59 DC 08/19/25 20:18 200 MG Furosemide (LASix 20MG TAB) 20 mg DAILY PO 07/25/25 11:00 08/02/25 11:53 DC 08/02/25 09:42 20 MG Gabapentin (NEURontin 100 mg CAP) 100 mg TID PO 07/29/25 14:00 08/02/25 09:21 DC 08/01/25 20:14 100 MG Gabapentin (NEURontin 100 mg CAP) 100 mg TID PO 08/11/25 21:00 09/10/25 20:59 08/23/25 09:15 100 MG Home Med (Compound Po Narcotic) HS TD 08/12/25 21:00 08/21/25 00:24 DC Hydromorphone HCl (DiLAUDid 0.5MG INJ) 0.5 mg Q4H PRN IVP SEVERE PAIN (7-10) 07/24/25 10:00 07/29/25 09:59 DC 07/29/25 08:22 0.5 MG Hydromorphone HCl (DiLAUDid 0.5MG INJ) 0.5 mg Q4H PRN IVP SEVERE PAIN (7-10) 07/29/25 13:30 08/03/25 13:29 DC 08/03/25 13:09 0.5 MG Hydromorphone HCl (DiLAUDid 0.5MG INJ) 0.5 mg Q4H PRN IVP SEVERE PAIN (7-10) 08/03/25 18:00 08/07/25 10:03 DC 08/07/25 05:09 0.5 MG Hydromorphone HCl (DiLAUDid 0.5MG INJ) 0.5 mg Q4H PRN IVP SEVERE PAIN (7-10) 08/07/25 10:00 08/11/25 10:32 DC 08/10/25 20:27 0.5 MG Hydromorphone HCl (DiLAUDid 0.5MG INJ) 0.5 mg Q6H PRN IVP SEVERE PAIN (7-10) 08/11/25 11:00 08/16/25 10:59 DC 08/15/25 16:03 0.5 MG Insulin Human Regular (humuLIN R 100 UNIT/ML 3ML) INSULIN SLIDING SCAL... ACHS SQ 07/21/25 07:30 08/20/25 07:29 DC 08/18/25 17:31 2 UNIT Ketorolac Tromethamine (toRADol) 15 mg Q8H PRN IM MODERATE PAIN (4-6) 08/15/25 18:30 08/16/25 06:57 DC 08/16/25 00:01 15 MG Lactated Ringer's 1,000 ml @ 75 mls/hr [id number] IV 07/21/25 00:00 07/21/25 13:17 DC 07/21/25 02:57 75 MLS/HR Lactated Ringer's 1,000 ml @ 75 mls/hr [id number] IV 07/21/25 13:30 07/24/25 11:09 DC 07/24/25 09:27 75 MLS/HR Lactobacillus Rhamnosus ([facility] [employer]) 1 each DAILY20 PO 07/26/25 20:00 08/25/25 19:59 08/22/25 21:23 1 EACH Lidocaine (Lidoderm Patch 5%) 1 patch DAILY TP 07/28/25 09:00 08/27/25 08:59 08/21/25 08:17 1 PATCH Lidocaine HCl/Al Hydroxide/Mg Hydroxide/ Dicyclomine HCl 20ML OR AD ONCE PO 08/06/25 16:30 08/07/25 16:29 DC 08/06/25 16:45 20 ML Magnesium Sulfate 50 ml @ 0 mls/hr PROTOCOL PRN IV MAGNESIUM PROTOCOL 07/21/25 07:00 08/20/25 06:59 DC 08/01/25 06:05 25 MLS/HR Methocarbamol (methoCARBamol) 500 mg BID PO 08/11/25 16:00 09/10/25 15:59 08/23/25 09:15 500 MG Metoclopramide HCl (regLAN 10MG IV) 5 mg BID IVP 08/04/25 21:00 09/03/25 20:59 08/23/25 09:05 5 MG Metronidazole/ Sodium Chloride (flaGYL) 500 mg Q8H IV 07/21/25 14:00 07/21/25 13:40 DC Morphine Sulfate (morPHINE 2MG SYG) 2 mg Q4H PRN IVP SEVERE PAIN (7-10) 07/21/25 00:30 07/21/25 13:18 DC 07/21/25 04:46 2 MG Morphine Sulfate (morPHINE 4MG SYG) 4 mg Q3H PRN IV MODERATE PAIN (4-6) 07/21/25 13:30 07/26/25 16:29 DC 07/26/25 10:51 4 MG Norepinephrine 250 ml @ 0 mls/hr PROTOCOL IV 07/20/25 23:30 08/03/25 08:27 DC 07/21/25 10:56 18.45 MLS/HR Ondansetron HCl (zoFRAN 4MG INJ) 4 mg Q4H PRN IVP NAUSEA 07/21/25 13:30 08/16/25 17:50 DC 08/16/25 10:23 4 MG Ondansetron HCl (zoFRAN 4MG INJ) 4 mg Q6H IVP 08/16/25 18:00 09/15/25 17:59 08/23/25 06:11 4 MG Ondansetron HCl (zoFRAN 4MG INJ) 4 mg Q6H PRN IV NAUSEA/VOMITING 07/21/25 00:00 07/21/25 13:18 DC Pantoprazole Sodium (PROTonix 40MG INJ) 40 mg BID IV 07/26/25 21:00 08/20/25 08:59 DC 08/19/25 20:16 40 MG Pantoprazole Sodium (PROTonix 40MG INJ) 40 mg BID IVP 08/05/25 21:00 08/06/25 08:39 DC 08/05/25 20:25 40 MG Pantoprazole Sodium (PROTonix 40MG INJ) 40 mg DAILY IV 07/21/25 09:00 07/26/25 09:31 DC 07/26/25 08:55 40 MG Pharmacy Profile Note (Pharmacy Communication) 1 each ONCE MISC 07/21/25 15:30 07/21/25 15:16 DC Pharmacy Profile Note (Pharmacy Communication) 1 each ONCE MISC 08/16/25 16:00 08/15/25 21:12 DC Pharmacy Profile Note (Pharmacy Communication) 1 each ONCE MISC 08/06/25 16:00 08/07/25 07:07 DC Piperacillin Sod/ Tazobactam Sod 50 ml @ 200 mls/hr ONCE STAT IVPB 07/20/25 19:15 07/20/25 19:29 DC 07/20/25 20:32 200 MLS/HR Piperacillin Sod/ Tazobactam Sod (Zosyn 3.375gm+NS 50ml) 3.375 gm Q12H IV 07/21/25 00:00 07/31/25 00:00 DC 07/30/25 23:55 3.375 GM Piperacillin Sod/ Tazobactam Sod (Zosyn 3.375gm+NS 50ml) 3.375 gm Q8H IVPB 07/31/25 11:30 08/10/25 11:29 DC 08/10/25 04:05 3.375 GM Piperacillin Sod/ Tazobactam Sod (Zosyn 3.375gm+NS 50ml) 3.375 gm Q8H IVPB 08/20/25 23:00 08/23/25 06:05 DC 08/23/25 00:15 3.375 GM Piperacillin Sod/ Tazobactam Sod (Zosyn 3.375gm+NS 50ml) 3.375 gm Q8H IVPB 08/23/25 08:00 09/02/25 07:59 08/23/25 09:04 3.375 GM Piperacillin Sod/ Tazobactam Sod (Zosyn 3.375gm+NS 50ml) 3.375 gm Q8H IVPB 08/10/25 13:00 08/20/25 12:59 DC 08/20/25 04:32 3.375 GM Potassium Chloride 100 ml @ 100 mls/hr AD PRN IV POTASSIUM PROTOCOL 07/24/25 08:30 08/23/25 08:29 DC 07/30/25 06:23 100 MLS/HR Potassium Chloride (K-Dur/Klor-Con 20meq) 20 meq AD PRN PO POTASSIUM PROTOCOL 07/24/25 08:30 08/23/25 08:29 DC 07/27/25 20:33 20 MEQ Potassium Chloride (KCl 10% Elixir 20meq/15ml) 20 meq AD PRN PO POTASSIUM PROTOCOL 07/24/25 08:30 08/23/25 08:29 DC 07/31/25 08:15 20 MEQ Psyllium Hydrophilic Mucilloid (Metamucil) 1 tbs BID PO 07/26/25 21:00 08/25/25 20:59 08/23/25 09:15 1 TBS Simethicone (Mylicon) 80 mg Q6H6 PO 07/27/25 12:00 08/26/25 11:59 08/23/25 00:16 80 MG Sodium Bicarbonate 150 meq/Sodium Chloride 1,150 ml @ 0 mls/hr Q0M IVP 07/21/25 14:00 07/26/25 09:31 DC Sodium Chloride (NS 50ml) 50 ml AD IV 07/31/25 11:30 07/31/25 11:12 DC Sodium Chloride (NS 50ml) 50 ml AD IV 08/20/25 22:30 08/20/25 22:43 DC Sodium Chloride (Normal Saline Flush) 10 ml Q8H IJ 08/09/25 11:00 09/08/25 10:59 08/22/25 19:00 10 ML Spironolactone (Aldactone 25mg) 25 mg BID PO 07/25/25 21:00 07/26/25 09:01 DC 07/26/25 08:56 25 MG Sucralfate (Carafate) 1 gm ACHS PO 07/29/25 21:00 08/28/25 20:59 08/22/25 21:20 1 GM Thiamine HCl (Vitamin B-1) 100 mg DAILY IVP 07/22/25 21:00 08/21/25 20:59 DC 08/21/25 08:15 100 MG Thiamine HCl 100 mg/Sodium Chloride 50 ml @ 100 mls/hr Q24H IM 07/21/25 15:30 07/21/25 16:25 DC Vancomycin HCl (Vancomycin 1g/ 250ml Kit) 1 gm ONCE STAT IV 07/20/25 21:23 07/20/25 21:26 DC 07/20/25 22:06 1 GM Vasopressin 20 units/Sodium Chloride 100 ml @ 0 mls/hr PROTOCOL IV 07/21/25 00:30 08/03/25 08:27 DC 07/21/25 00:10 9 MLS/HR DIAGNOSTICS / RADIOLOGY: [ ] ASSESSMENT: Suspected Bowel Perforation/ Anastomotic Leak POA Acute cholecystitis, not POA s/p Cholecystotomy tube placement 08/02/2025 Bilious peritonitis s/p Diagnostic laparoscopy, abdominal washout, drain placement and diverting loop ileostomy creation Perisplenic and infrasplenic fluid collection with splenomegaly - suspected abscess s/p drainage with catheter placement Hyponatremia, resolved Bacterial peritonitis [ESBL Ecoli], resolved Cholelithiasis Atrophic vaginitis Hyperkalemia, resolved Iron Deficiency anemia, POA Diabetes Mellitus Type 2 POA Acute Kidney Injury POA, resolved Septic Shock POA, resolved Cirrhosis of liver POA Esophageal Varices Recent Robotic takedown of splenic flexure mobilization, robotic takedown of colovesical fistula with sigmoid colectomy and end-to-end anastomosis surgery PLAN: Bilious peritonitis status post Diagnostic laparoscopy, abdominal washout, drain placement and diverting loop ileostomy creation -Continue close monitoring of the patient -continue physical therapy -No output in CHRIS drain. Follow up with surgery regarding CHRIS drain removal. -Continue Zosyn [day 34] and fluconazole [day 34]. -Probiotics and Fibers have been added for bloating. -Continue Protonix 40mg IV BID - Continue Fluker 5 mg q.4h p.r.n.,for pain management - As per surgery, continue methocarbamol and gabapentin. Perisplenic and infrasplenic fluid collection with splenomegaly * CT scan showed perisplenic and infrasplenic fluid collection measuring 6.0 x 6.1 x 8.9 cm, splenomegaly, with spleen measuring 15.2 cm * IR drained the perisplenic and intra splenic fluid with placement of drainage catheter. * Cultures resulted in now growth * Continue Zosyn and fluconazole * Plan to remove splenic drainage catheter after abscess fistula study Bacterial Peritonitis, resolved * Post Surgical patient with Bacterial peritonitis positive for ESBL * Culture and sensitivity shows susceptibility to Zosyn, Gentamicin and Meropenem. * Likely secondary to post-operative intraabdominal infection with risk of ongoing contamination. * Currently patient is on Zosyn (Day 34) Cholelithiasis * Patient complained of upper abdominal pain * Ultrasound abdomen showed: Cirrhotic-appearing liver * Cholelithiasis and biliary sludge with gallbladder distension and Small volume ascites. * Hida scan showed acute cholecystitis. * IR did a Fluoroscopy and ultrasound-guided placement of cholecystotomy tube and cholecystogram on 08/02/2025. 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 Patient was found to have normally positioned tube with some stones for which the tube was flushed.. Small Bowel Obstruction (Resolved) * Abdominal Xray showed: Dilated small bowel loops are seen in mid abdomen * Pain management(avoid excess opioids if ileus is suspected) * Monitor for resolution vs progression of Ileus/obstruction. 07/29/25 Bowel Perforation, Dehiscence of the anastomosis - Patient had repair of colovesicular fistula with sigmoid colon resection and anastomosis on 07/09/25. - CT abdominal pelvis w/contrast done on 07/20/2025 showed Free air in the upper abdomen is seen, suggesting perforated bowel vs post surgical changes. No obstr uction. - underwent Diagnostic laparoscopy, abdominal washout, drain placement and diverting loop ileostomy creation for biliary peritonitis Iron Deficiency anemia * Hemoglobin today is 9.6. * Anemia panel has been ordered. Results showed Iron 24L, %sat 16.3 and TIBC 147L. 07/30/25 * Received 2 doses of Iron sucrose (venofer) so far Recommend trending Hgb and transfuse as needed to goal Hgb >7 Acute Kidney Injury, Resolved * Creatinine improved * Initial FeNA is 0.1 %, probably secondary to dehydration and NSAIDs overuse. * initial Urine sodium is < 13 and urine creatinine is 132.17. * Avoid nephrotoxic agents, eg. NSAIDS. * Weight patient daily. * Monitor intake and output. Supportive measures - Multimodal pain management - Duloxetine started. -Maintain IV fluids, correct electrolytes -Serial abdominal exams -Translation Director on avoidance of NSAIDS and other related triggers. -Monitor Vitals and perform morning labs regularly Continue GI prophylaxis with Pantop Continue DVT prophylaxis with SCDs, we will avoid heparin due to history of allergies to porcine ATTESTATION BY PHYSICIAN I have seen and examined the patient. I reviewed the documentation, medical decision making, and treatment plan as noted by the resident provider above. I agree with the findings and plan of care. Denzel Coello IV, MD, HARSHAVARDHA MD Aug 23, 2025 12:40
--- NOTE | 2025-08-23 12:45 | PN ---
NEPHROLOGY PROGRESS NOTE Date/Time Patient Seen: Aug 23, 2025 SUBJECTIVE: This is a 55-year-old female with a past medical history of diabetes mellitus type 2, liver cirrhosis, esophageal varices. He presented to the emergency room with chief complain of abdominal pain. CT of the abdomen showed moderate small bowel enteritis with free air in the upper abdomen, suggesting perforated bowel versus post surgical changes. No obs truction. S/p diagnostic laparoscopy, abdominal washout, drain placement and diverting loop ileostomy creation with CHRIS drain 10 Azeri on 07/21 S/P cholecystotomy tube on 08/02 S/P Cholecystogram showed cholecystotomy tube in satisfactory position with multiple large gallstones seen in the gallbladder lumen on 08/09 S/P successful CT guided drainage of left infrasplenic collection on 08/09 Diet is being advanced as tolerated Plan for abscessogram for possible percutaneous drain removal on Saturday as per surgery recommendations She was noted to have elevated BUN/creatinine We are consulted for renal failure Renal function is stable Continues with hyponatremia Pending cortisol level She was seen in the medial floor, in no acute distress No family at the bedside REVIEW OF SYSTEMS: GENERAL: Positive for nausea NEUROLOGIC: Negative for any blurry vision, blind spots, double vision, facial asymmetry, dysphagia, dysarthria, hemiparesis, hemisensory deficits, vertigo, ataxia. HEENT: Negative for any head trauma, neck trauma, neck stiffness, photophobia, phonophobia, sinusitis, rhinitis. CARDIAC: Negative for any chest pain, dyspnea on exertion, paroxysmal nocturnal dyspnea, peripheral edema. PULMONARY: Negative for any shortness of breath, wheezing, COPD, or TB exposure. GASTROINTESTINAL: Negative for any abdominal pain, nausea, vomiting, bright red blood per rectum, melena. GENITOURINARY: Negative for any dysuria, hematuria, incontinence. INTEGUMENTARY: Negative for any rashes, cuts, insect bites. RHEUMATOLOGIC: Negative for any joint pains, photosensitive rashes, history of vasculitis or kidney problems. HEMATOLOGIC: Negative for any abnormal bruising, frequent infections or bleeding. Vital Signs (last 8hr) Date Time Temp Pulse Resp B/P (MAP) Pulse Ox O2 Delivery O2 Flow Rate FiO2 08/23/25 11:20 98.2 92 18 113/69 98 Room Air 08/23/25 08:56 98.1 88 18 107/72 97 Room Air PHYSICAL EXAM: GENERAL: Alert and oriented x 3. No acute distress. Well-nourished. EYES: EOMI. Anicteric. HENT: Moist mucous membranes. No scleral icterus. No cervical lymphadenopathy. LUNGS: Clear to auscultation bilaterally. No accessory muscle use. CARDIOVASCULAR: Regular rate and rhythm. No murmur. No JVD. ABDOMEN: Soft, non-tender and non-distended. No palpable masses. EXTREMITIES: No edema. Non-tender SKIN: No rashes or lesions. Warm. NEUROLOGIC: No focal neurological deficits. CN II-XII grossly intact, but not individually tested. PSYCHIATRIC: Cooperative. Appropriate mood and affect. Current Medications Medications (Trade) Dose Ordered Sig/Gregory Route Start Time Stop Time Status Last Admin Dose Admin Albumin Human 50 ml @ 100 mls/hr Q12H IV 08/02/25 21:30 08/05/25 09:59 DC 08/05/25 10:12 100 MLS/HR Albumin Human 50 ml @ 0 mls/hr Q12H IV 08/02/25 18:30 08/02/25 20:04 DC Albumin Human 100 ml @ 0 mls/hr ONCE IV 07/25/25 12:00 07/26/25 11:59 DC 07/25/25 13:43 100 MLS/HR Clotrimazole (Lotrimin) 1 GM BID TP 07/29/25 21:00 08/28/25 20:59 08/20/25 21:00 1 GM Cyclobenzaprine HCl (Cyclobenzaprine HCl) 5 mg TID PO 07/25/25 14:00 07/26/25 14:00 DC 07/26/25 14:19 5 MG Duloxetine HCl (CymbALTA 30 mg CAP) 30 mg BID PO 08/15/25 21:00 09/14/25 20:59 08/21/25 08:14 30 MG Fat Emulsion Intravenous 250 ml @ 42 mls/hr DAILY10 IV 08/13/25 10:00 08/19/25 10:44 DC 08/18/25 09:57 42 MLS/HR Fentanyl (DURAgesic 12 MCG/HR PATCH) 12 mcg Q72H TD 08/09/25 13:00 08/09/25 15:19 DC Fentanyl (DURAgesic 12 MCG/HR PATCH) 12 mcg Q72H TD 08/09/25 15:30 08/11/25 10:32 DC 08/09/25 15:38 12 MCG Fentanyl (DURAgesic 25 MCG/HR PATCH) 25 mcg Q72H TD 07/31/25 14:30 07/31/25 14:44 DC Fentanyl (DURAgesic 25 MCG/HR PATCH) 25 mcg Q72H TD 08/12/25 15:30 08/12/25 16:00 DC Fentanyl (DURAgesic 25 MCG/HR PATCH) 25 mcg Q72H TD 08/12/25 21:00 08/17/25 20:59 DC 08/16/25 00:02 25 MCG Fluconazole/ Sodium Chloride 100 ml @ 100 mls/hr DAILY IV 08/20/25 22:30 08/23/25 23:00 08/21/25 08:09 100 MLS/HR Fluconazole/ Sodium Chloride (DiFLUCan 200 MG/ NS 100 ML) 200 mg Q24H IVPB 07/21/25 21:00 08/20/25 20:59 DC 08/19/25 20:18 200 MG Furosemide (LASix 20MG TAB) 20 mg DAILY PO 07/25/25 11:00 08/02/25 11:53 DC 08/02/25 09:42 20 MG Gabapentin (NEURontin 100 mg CAP) 100 mg TID PO 07/29/25 14:00 08/02/25 09:21 DC 08/01/25 20:14 100 MG Gabapentin (NEURontin 100 mg CAP) 100 mg TID PO 08/11/25 21:00 09/10/25 20:59 08/21/25 13:21 100 MG Home Med (Compound Po Narcotic) HS TD 08/12/25 21:00 08/21/25 00:24 DC Insulin Human Regular (humuLIN R 100 UNIT/ML 3ML) INSULIN SLIDING SCAL... ACHS SQ 07/21/25 07:30 08/20/25 07:29 DC 08/18/25 17:31 2 UNIT Lactated Ringer's 1,000 ml @ 75 mls/hr [id number] IV 07/21/25 00:00 07/21/25 13:17 DC 07/21/25 02:57 75 MLS/HR Lactated Ringer's 1,000 ml @ 75 mls/hr [id number] IV 07/21/25 13:30 07/24/25 11:09 DC 07/24/25 09:27 75 MLS/HR Lactobacillus Rhamnosus ([facility] [place]) 1 each DAILY20 PO 07/26/25 20:00 08/25/25 19:59 08/20/25 20:08 1 EACH Lidocaine (Lidoderm Patch 5%) 1 patch DAILY TP 07/28/25 09:00 08/27/25 08:59 08/21/25 08:17 1 PATCH Lidocaine HCl/Al Hydroxide/Mg Hydroxide/ Dicyclomine HCl 20ML OR AD ONCE PO 08/06/25 16:30 08/07/25 16:29 DC 08/06/25 16:45 20 ML Methocarbamol (methoCARBamol) 500 mg BID PO 08/11/25 16:00 09/10/25 15:59 08/21/25 08:15 500 MG Metoclopramide HCl (regLAN 10MG IV) 5 mg BID IVP 08/04/25 21:00 09/03/25 20:59 08/21/25 08:16 5 MG Metronidazole/ Sodium Chloride (flaGYL) 500 mg Q8H IV 07/21/25 14:00 07/21/25 13:40 DC Norepinephrine 250 ml @ 0 mls/hr PROTOCOL IV 07/20/25 23:30 08/03/25 08:27 DC 07/21/25 10:56 18.45 MLS/HR Ondansetron HCl (zoFRAN 4MG INJ) 4 mg Q6H IVP 08/16/25 18:00 09/15/25 17:59 08/21/25 13:20 4 MG Pantoprazole Sodium (PROTonix 40MG INJ) 40 mg BID IV 07/26/25 21:00 08/20/25 08:59 DC 08/19/25 20:16 40 MG Pantoprazole Sodium (PROTonix 40MG INJ) 40 mg BID IVP 08/05/25 21:00 08/06/25 08:39 DC 08/05/25 20:25 40 MG Pantoprazole Sodium (PROTonix 40MG INJ) 40 mg DAILY IV 07/21/25 09:00 07/26/25 09:31 DC 07/26/25 08:55 40 MG Pharmacy Profile Note (Pharmacy Communication) 1 each ONCE MISC 07/21/25 15:30 07/21/25 15:16 DC Pharmacy Profile Note (Pharmacy Communication) 1 each ONCE MISC 08/16/25 16:00 08/15/25 21:12 DC Pharmacy Profile Note (Pharmacy Communication) 1 each ONCE MISC 08/06/25 16:00 08/07/25 07:07 DC Piperacillin Sod/ Tazobactam Sod 50 ml @ 200 mls/hr ONCE STAT IVPB 07/20/25 19:15 07/20/25 19:29 DC 07/20/25 20:32 200 MLS/HR Piperacillin Sod/ Tazobactam Sod (Zosyn 3.375gm+NS 50ml) 3.375 gm Q12H IV 07/21/25 00:00 07/31/25 00:00 DC 07/30/25 23:55 3.375 GM Piperacillin Sod/ Tazobactam Sod (Zosyn 3.375gm+NS 50ml) 3.375 gm Q8H IVPB 07/31/25 11:30 08/10/25 11:29 DC 08/10/25 04:05 3.375 GM Piperacillin Sod/ Tazobactam Sod (Zosyn 3.375gm+NS 50ml) 3.375 gm Q8H IVPB 08/20/25 23:00 08/23/25 23:00 08/21/25 06:05 3.375 GM Piperacillin Sod/ Tazobactam Sod (Zosyn 3.375gm+NS 50ml) 3.375 gm Q8H IVPB 08/10/25 13:00 08/20/25 12:59 DC 08/20/25 04:32 3.375 GM Psyllium Hydrophilic Mucilloid (Metamucil) 1 tbs BID PO 07/26/25 21:00 08/25/25 20:59 08/21/25 08:16 1 TBS Simethicone (Mylicon) 80 mg Q6H6 PO 07/27/25 12:00 08/26/25 11:59 08/21/25 13:21 80 MG Sodium Bicarbonate 150 meq/Sodium Chloride 1,150 ml @ 0 mls/hr Q0M IVP 07/21/25 14:00 07/26/25 09:31 DC Sodium Chloride (NS 50ml) 50 ml AD IV 07/31/25 11:30 07/31/25 11:12 DC Sodium Chloride (NS 50ml) 50 ml AD IV 08/20/25 22:30 08/20/25 22:43 DC Sodium Chloride (Normal Saline Flush) 10 ml Q8H IJ 08/09/25 11:00 09/08/25 10:59 08/21/25 11:00 10 ML Spironolactone (Aldactone 25mg) 25 mg BID PO 07/25/25 21:00 07/26/25 09:01 DC 07/26/25 08:56 25 MG Sucralfate (Carafate) 1 gm ACHS PO 07/29/25 21:00 08/28/25 20:59 08/21/25 13:20 1 GM Thiamine HCl (Vitamin B-1) 100 mg DAILY IVP 07/22/25 21:00 08/21/25 20:59 08/21/25 08:15 100 MG Thiamine HCl 100 mg/Sodium Chloride 50 ml @ 100 mls/hr Q24H IM 07/21/25 15:30 07/21/25 16:25 DC Vancomycin HCl (Vancomycin 1g/ 250ml Kit) 1 gm ONCE STAT IV 07/20/25 21:23 07/20/25 21:26 DC 07/20/25 22:06 1 GM Vasopressin 20 units/Sodium Chloride 100 ml @ 0 mls/hr PROTOCOL IV 07/21/25 00:30 08/03/25 08:27 DC 07/21/25 00:10 9 MLS/HR LABORATORY: [ ] Hematology Labs: Test 08/23/25 04:40 Range/Units White Blood Count 6.4 4.8-10.8 K/uL Red Blood Count 3.77 L 4.00-5.50 MIL/uL Hemoglobin 11.2 L 12.0-16.0 g/dL Hematocrit 34.4 L 36-48 % Mean Corpuscular Volume 91.2 79-99 fL Mean Corpuscular Hemoglobin 29.7 27.0-33.0 pg Mean Corpuscular Hemoglobin Concent 32.6 32.0-36.0 g/dL Red Cell Distribution Width 17.0 H 11.0-15.5 % Platelet Count 204 130-400 K/uL Mean Platelet Volume 9.3 7.5-10.5 fL Immature Granulocyte % (Auto) 0.9 0-1 % Neutrophils (%) (Auto) 70.6 40.0-77.0 % Lymphocytes (%) (Auto) 15.6 L 21.0-51.0 % Monocytes (%) (Auto) 9.7 3.0-13.0 % Eosinophils (%) (Auto) 2.6 0.0-8.0 % Basophils (%) (Auto) 0.6 0.0-5.0 % Neutrophils # (Auto) 4.5 1.8-7.7 K/uL Lymphocytes # (Auto) 1.0 1.0-4.8 K/uL Monocytes # (Auto) 0.6 0.1-1.0 K/uL Eosinophils # (Auto) 0.17 0.00-0.70 K/uL Basophils # (Auto) 0.04 0.00-0.20 K/uL Absolute Immature Granulocyte (auto 0.06 0-1 K/uL Nucleated Red Blood Cells 0.0 0.0-0.19 % Chemistry Labs: Test 08/23/25 10:59 08/23/25 04:40 Range/Units Whole Blood Glucose 133 H 70-110 MG/DL Sodium Level 124 L 136-145 mmol/L Potassium Level 4.6 3.5-5.1 mmol/L Chloride Level 96 L 101-111 mmol/L Carbon Dioxide Level 18 L 21-32 mmol/L Blood Urea Nitrogen 14 7-18 mg/dL Creatinine 1.0 0.5-1.0 mg/dL Glomerular Filtration Rate Calc 66 >90 mL/min Random Glucose 94 70-105 mg/dL Total Calcium 9.6 8.5-10.1 mg/dL Magnesium Level 1.70 L 1.80-2.40 mg/dL Total Bilirubin 1.0 0.2-1.0 mg/dL Aspartate Amino Transf (AST/SGOT) 44 H 10-37 U/L Alanine Aminotransferase (ALT/SGPT) 24 12-78 U/L Alkaline Phosphatase 209 H 50-136 U/L Total Protein 8.4 H 6.0-8.3 g/dL Albumin 2.9 L 3.5-5.0 g/dL DIAGNOSTICS / RADIOLOGY: [address] [address] IMAGING REPORT Signed PATIENT: DALLAS BUCHANAN MR#: [id number] : 1970 SEX: F AGE: 55 LOCATION: 4AH ORDER 0642 STATUS: ADM IN REPORT#: [id number] SERVICE 0 REASON: picc line placement ORDERING PHYSICIAN: AYAKA BARR MD PROCEDURE: CXR1VW - CHEST 1VW EXAM: CR Chest, single view. CLINICAL HISTORY: PICC line placement. COMPARISON: Prior chest radiograph dated July 22, 2025 FINDINGS: Left-sided PICC line placement with tip in the region of the superior vena cava. Mild cardiomegaly. An ill-defined soft tissue in the superior mediastinum possibility of aortic arch aneurysm, is not excluded. The lungs show no infiltrate or other acute findings. No pleural effusion or pneumothorax. No acute osseous abnormality. IMPRESSION: Left-sided PICC line placement with tip in the region of the superior vena cava. Mild cardiomegaly. An ill-defined soft tissue in the superior mediastinum possibility of aortic arch aneurysm, is not excluded. May consider further evaluation with contrast-enhanced CT thorax. Compared to the prior study, there is no interval resolution of the subsegmental atelectasis in the right lower lobe, interval removal of the nasogastric tube, and interval placement of the left-sided PICC catheter. /[place] DICTATED BY: ELDON MILLER Jr., MD DATE: 08/11/25824 ELECTRONICALLY SIGNED BY: ELDON MILLER Jr., MD DATE: 08/11/25824 PATIENT: DALLAS BUCHANAN MR#: [id number] : 1970 SEX: F AGE: 55 LOCATION: 4AH ORDER 1544 STATUS: ADM IN REPORT#: [id number] SERVICE 0800 REASON: Aspiration of perisplenic fluid noted on CT ORDERING PHYSICIAN: BENEDICTO OBRIEN Jr. PROCEDURE: GUID NDL - CT GUIDE NDL PLCMT IR CT GUIDE NDL PLCMT IR HISTORY: Aspiration of perisplenic fluid noted on CT infrasplenic fluid collection drainage . TECHNIQUE: Images from prior studies reviewed. Informed consent was obtained after explaining the procedure and potential complications to the patient. Time out performed. The patient was placed prone on the CT couch and images of the abdomen obtained. The left flank draped in sterile fashion. Local anesthesia was applied and under CT-fluoroscopy guidance, a 19-gauge needle introducer was advanced through the abdominal wall and into a left infrasplenic fluid collection in the left hemiabdomen. Then, over a wire the tract was dilated to accommodate a 8 Azeri APDL catheter, which was left coiled within the collection. Completion images reveal no hemorrhage. Patient tolerated the procedure well and was discharged from the department in good condition. Approximately 10 cc of fluid mL of fluid sent for cultures. Conscious sedation provided by a registered nurse who monitored the patient's vital signs throughout and after the procedure. MEDICATIONS: Fentanyl 100 mcg IV and Versed 2 mg IV IMPRESSION: Successful CT guided drainage of left infrasplenic collection. DICTATED BY: GREER FIORE MD DATE: 08/10/25927 ELECTRONICALLY SIGNED BY: GREER FIORE MD DATE: 08/10/25937 PATIENT: DALLAS BUCHANAN MR#: [id number] : 1970 SEX: F AGE: 55 LOCATION: [facility] ORDER 36 STATUS: ADM IN REPORT#: [id number] SERVICE 35 REASON: epigastric pain. not tolerating meals. ORDERING PHYSICIAN: SUSNA JHAVERI MD PROCEDURE: ABD PEL W - CT ABDOMEN/PELVIS W/CONTRAST EXAM: CT Abdomen and Pelvis with IV contrast CLINICAL HISTORY: epigastric pain. not tolerating meals. TECHNIQUE: Axial computed tomography images of the abdomen and pelvis with intravenous contrast. CONTRAST: with intravenous contrast. COMPARISON: Compared with the previous CT dated 07/20 and USG dated 07/29 FINDINGS: LUNG BASES: Grossly stable atelectasis and scarring at the lung bases. LIVER: Unremarkable. GALLBLADDER AND BILE DUCTS: The gallbladder is decompressed with a cholecystostomy tube in situ. PANCREAS: Unremarkable. SPLEEN: The spleen is enlarged in size, measuring 15.2 cm. ADRENAL GLANDS: Unremarkable. KIDNEYS, URETERS, AND BLADDER: No hydronephrosis or nephrolithiasis. No ureteral calculi. The urinary bladder is unremarkable. STOMACH AND BOWEL: The ileostomy site appears unremarkable. Interval resolution of previously seen moderate small bowel enteritis. No obstruction. APPENDIX: No CT evidence for appendicitis. PERITONEUM: Near complete interval resolution of previously seen moderate ascites in the abdomen and pelvis. Collection in the perisplenic and infra-splenic region measuring 6.0 x 6.1 x 8.9 cm. Interval resolution of previously seen pneumoperitoneum. Diffuse mesenteric fat stranding, likely postoperative changes. LYMPH NODES: No lymphadenopathy. REPRODUCTIVE: Unremarkable as visualized. VASCULATURE: No aortic aneurysm. ABDOMINAL WALL AND SOFT TISSUES: Interval resolution of previously seen subcutaneous emphysema in the anterior abdominal wall and left lateral chest wall. Abdominal drain in situ with tip in the pelvis. BONES: No fracture or suspicious osseous abnormality. IMPRESSION: 1. Perisplenic and infrasplenic fluid collection measuring 6.0 x 6.1 x 8.9 cm. 2. Splenomegaly, with spleen measuring 15.2 cm. 3. Cholecystostomy tube in situ with decompressed gallbladder. 4. Abdominal drain in situ with tip in the pelvis. 5. No acute findings in the remainder of the abdomen and pelvis. /[place] DICTATED BY: ELDON MILLER Jr., MD DATE: 08/04/251636 ELECTRONICALLY SIGNED BY: ELDON MILLER Jr., MD DATE: 08/04/251636 PATIENT: DALLAS BUCHANAN MR#: [id number] : 1970 SEX: F AGE: 55 LOCATION: [facility] ORDER 1524 STATUS: ADM IN REPORT#: [id number] SERVICE 1523 REASON: cholecystitis ORDERING PHYSICIAN: BENEDICTO OBRIEN Jr. PROCEDURE: HIDA PHARM - NM HIDA/HEPATOBILI W/ PHARMACO EXAM: HIDA scan. INDICATION: Severe RUQ Pain to rule out cholecystitis. REFERENCE EXAMINATION: USG July 29, 2025. TECHNIQUE: Sequential images of the abdomen were obtained in the anterior projection after IV administration of 6.0 mCi of Tc99m Mebrofenin. FINDINGS: Tracer activity throughout the liver is homogeneous without focal defects. There is prompt excretion of the pharmaceutical into the bile ducts and into the small bowel, without evidence of obstruction. There is no visualization of the gallbladder at the conclusion of the examination. IMPRESSION: Scintigraphic findings are compatible with acute cholecystitis. /[place] DICTATED BY: ELDON MILLER Jr., MD DATE: 08/01/25 101 ELECTRONICALLY SIGNED BY: ELDON MILLER Jr., MD DATE: 08/01/25 1011 PATIENT: DALLAS BUCHANAN MR#: [id number] : 1970 SEX: F AGE: 55 LOCATION: 4AH ORDER 10 STATUS: ADM IN REPORT#: [id number] SERVICE 09 REASON: ABD PAIN ORDERING PHYSICIAN: NKIKI MUNOZ NP PROCEDURE: ABD 1VW - ABD 1VW EXAM: CR Abdomen, 1 view. CLINICAL HISTORY: Pain. COMPARISON: None provided. FINDINGS: Dilated small bowel loops are seen in mid abdomen. There is a density in the pelvis which may represent a send drainage catheter. No free air is evident. No abnormal calcification. No aggressive appearing osseous lesion. IMPRESSION: Dilated small bowel loops are seen in mid abdomen. Density in the pelvis which may represent a send drainage catheter. /[place] DICTATED BY: TOBI LEAHY MD DATE: 07/29/25 103 ELECTRONICALLY SIGNED BY: TOBI LEAHY MD DATE: 07/29/25 103 PATIENT: DALLAS BUCHANAN MR#: [id number] : 1970 SEX: F AGE: 55 LOCATION: 4AH ORDER 1519 STATUS: ADM IN REPORT#: [id number] SERVICE 1516 REASON: Liver cirrhosis ORDERING PHYSICIAN: LISET DOUGLAS MD PROCEDURE: ABDOMEN - US ABDOMINAL COMPLETE EXAM: US Abdomen complete CLINICAL HISTORY: Liver cirrhosis TECHNIQUE: Real-time ultrasound of the abdomen (complete) with image documentation. COMPARISON: None provided. FINDINGS: LIVER: Liver measures 12.3 cm with a heterogeneous coarse echotexture. GALLBLADDER: Gallbladder contains stones and sludge. Gallbladder is distended. COMMON BILE DUCT: No dilation. PANCREAS: Pancreas not well-visualized due to overlying bowel gas KIDNEYS: Normal renal contours. No renal mass or calculus. No hydronephrosis. SPLEEN: Normal in size and echogenicity. No mass identified. AORTA: No aneurysm. IVC: Unremarkable as visualized. MISCELLANEOUS: Small amount of abdominal ascites. IMPRESSION: 1. Cirrhotic-appearing liver. 2. Cholelithiasis and biliary sludge with gallbladder distension. 3. Small volume ascites. /[place] DICTATED BY: CYNTHIA JULIAN MD DATE: 07/29/251055 ELECTRONICALLY SIGNED BY: CYNTHIA JULIAN MD DATE: 07/29/251055 PATIENT: DALLAS BUCHANAN MR#: [id number] : 1970 SEX: F AGE: 55 LOCATION: [facility] ORDER 1108 STATUS: ADM IN REPORT#: [id number] SERVICE 1106 REASON: sob ORDERING PHYSICIAN: PREET BOSTON MD PROCEDURE: CXR1VW - CHEST 1VW CHEST 1VW REASON: sob COMPARISON: Study from 07/21/2025 is available. FINDINGS: Single view of the chest was obtained. Lungs are clear. Heart size is normal. There is no pulmonary vascular congestion. There is a right-sided PIC catheter with tip in superior vena cava. There is a nasogastric tube with the tip in the fundus of the stomach. Mediastinum and bony thorax appear unremarkable. IMPRESSION: 1. No acute cardiopulmonary process 2. The support lines are in satisfactory position.. DICTATED BY: GREER FIORE MD DATE: 07/22/25 135 ELECTRONICALLY SIGNED BY: GREER FIORE MD DATE: 07/22/25 135 PATIENT: DALLAS BUCHANAN MR#: [id number] : 1970 SEX: F AGE: 55 LOCATION: 2BH ORDER STATUS: ADM IN REPORT#: [id number] SERVICE REASON: PICC LINE ORDERING PHYSICIAN: HEATHER LEACH APRN PROCEDURE: CXR1VW - CHEST 1VW EXAM: CR Chest, single view. CLINICAL HISTORY: PICC line COMPARISON: Prior same day chest radiograph. FINDINGS: Right-sided PICC catheter with tip in the cavoatrial junction. Subsegmental atelectasis in the right lower lobe. No evidence of pleural effusion or pneumothorax. The cardiomediastinal silhouette is within normal limits. No acute osseous abnormality. IMPRESSION: Right-sided PICC catheter with tip in the cavoatrial junction. Subsegmental atelectasis in the right lower lobe. No evidence of pleural effusion or pneumothorax. Compared to the prior study, there is interval placement of the right-sided PICC line and interval resolution of the subsegmental atelectasis in the left lower lobe. /[place] DICTATED BY: ELDON MILLER Jr., MD DATE: 07/21/25816 ELECTRONICALLY SIGNED BY: ELDON MILLER Jr., MD DATE: 07/21/25816 PATIENT: DALLAS BUCHANAN MR#: [id number] : 1970 SEX: F AGE: 55 LOCATION: [facility] ORDER 14 STATUS: [facility] REPORT#: [id number] SERVICE 12 REASON: CHEST PAIN/COUGH ORDERING PHYSICIAN: ALHAJI SHINE NP PROCEDURE: CXR1VW - CHEST 1VW EXAM: XR Chest, 1 View. CLINICAL HISTORY: 55 year old female with chest pain and cough. COMPARISON: None provided. FINDINGS: LUNGS: The lungs demonstrate evidence of atelectasis. PLEURAL SPACES: A small right pleural effusion is present. HEART: The heart size is normal. BONES: No acute osseous abnormality. IMPRESSION: 1. Small right pleural effusion and right lung base atelectasis. /[place] DICTATED BY: EDWIGE LEDESMA MD DATE: 07/20/252046 ELECTRONICALLY SIGNED BY: EDWIGE LEDESMA MD DATE: 07/20/252046 PATIENT: DALLAS BUCHANAN MR#: [id number] : 1970 SEX: F AGE: 55 LOCATION: [facility] ORDER 14 STATUS: [facility] REPORT#: [id number] SERVICE 12 REASON: Abdominal Pain ORDERING PHYSICIAN: ALHAJI SHINE KITCHEN STEWARD/STEWARDESS PROCEDURE: ABD PEL W - CT ABDOMEN/PELVIS W/CONTRAST ADDENDUM REPORT ADDENDUM: Results were shared by telephone at 23:23 pm on 07-20-2025 and acknowledged by Pt nurse Ms. SHIN BOYKIN. /[place] EXAM: CT Abdomen and Pelvis with Intravenous Contrast CLINICAL HISTORY: 55-year-old female with abdominal pain. TECHNIQUE: Axial computed tomography images of the abdomen and pelvis with intravenous contrast. Dose reduction technique was used including one or more of the following: automated exposure control, adjustment of mA and kV according to patient size, and/or iterative reconstruction. CONTRAST: Omnipaque 350, 75 mL COMPARISON: None provided. FINDINGS: LUNG BASES: Atelectasis and scarring at the lung bases. LIVER: Unremarkable. GALLBLADDER AND BILE DUCTS: Tiny gallstone seen. PANCREAS: Unremarkable. SPLEEN: Unremarkable. ADRENAL GLANDS: Unremarkable. KIDNEYS, URETERS, AND BLADDER: Dueñas catheter seen in the bladder lumen. No hydronephrosis or nephrolithiasis. No ureteral calculi. STOMACH AND BOWEL: Edema or loops of small bowel suggesting moderate small bowel enteritis. Free air in the upper abdomen is seen, suggesting perforated bowel. No obstruction. APPENDIX: No CT evidence for appendicitis. PERITONEUM: Moderate ascites in the abdomen and pelvis. No free air under the diaphragm. LYMPH NODES: No lymphadenopathy. REPRODUCTIVE: Unremarkable as visualized. VASCULATURE: No aortic aneurysm. ABDOMINAL WALL AND SOFT TISSUES: There is air in the subcutaneous soft tissue seen anteriorly, suggesting recent postsurgical changes; please correlate with surgical history. BONES: No fracture or suspicious osseous abnormality. IMPRESSION: 1. Moderate small bowel enteritis with free air in the upper abdomen, suggesting perforated bowel versus post surgical changes. No obstruction. 2. Moderate ascites in the abdomen and pelvis. 3. Air in the subcutaneous soft tissue anteriorly, suggesting recent postsurgical changes; please correlate with surgical history. /[place] DICTATED BY: EDWIGE LEDESMA MD DATE: 07/20/25 3086 ELECTRONICALLY SIGNED BY: DATE: EXAM: CT Abdomen and Pelvis with Intravenous Contrast CLINICAL HISTORY: 55-year-old female with abdominal pain. TECHNIQUE: Axial computed tomography images of the abdomen and pelvis with intravenous contrast. Dose reduction technique was used including one or more of the following: automated exposure control, adjustment of mA and kV according to patient size, and/or iterative reconstruction. CONTRAST: Omnipaque 350, 75 mL COMPARISON: None provided. FINDINGS: LUNG BASES: Atelectasis and scarring at the lung bases. LIVER: Unremarkable. GALLBLADDER AND BILE DUCTS: Tiny gallstone seen. PANCREAS: Unremarkable. SPLEEN: Unremarkable. ADRENAL GLANDS: Unremarkable. KIDNEYS, URETERS, AND BLADDER: Dueñas catheter seen in the bladder lumen. No hydronephrosis or nephrolithiasis. No ureteral calculi. STOMACH AND BOWEL: Edema or loops of small bowel suggesting moderate small bowel enteritis. Free air in the upper abdomen is seen, suggesting perforated bowel. No obstruction. APPENDIX: No CT evidence for appendicitis. PERITONEUM: Moderate ascites in the abdomen and pelvis. No free air under the diaphragm. LYMPH NODES: No lymphadenopathy. REPRODUCTIVE: Unremarkable as visualized. VASCULATURE: No aortic aneurysm. ABDOMINAL WALL AND SOFT TISSUES: There is air in the subcutaneous soft tissue seen anteriorly, suggesting recent postsurgical changes; please correlate with surgical history. BONES: No fracture or suspicious osseous abnormality. IMPRESSION: 1. Moderate small bowel enteritis with free air in the upper abdomen, suggesting perforated bowel versus post surgical changes. No obstruction. 2. Moderate ascites in the abdomen and pelvis. 3. Air in the subcutaneous soft tissue anteriorly, suggesting recent postsurgical changes; please correlate with surgical history. /[place] DICTATED BY: EDWIGE LEDESMA MD DATE: 07/20/252317 ELECTRONICALLY SIGNED BY: EDWIGE LEDESMA MD DATE: 07/20/252317 ASSESSMENT: Acute kidney injury Hyponatremia Bacterial peritonitis Perisplenic and infrasplenic fluid collection with splenomegaly Cholelithiasis 2 mm perforation of the colonic anastomosis Anastomosis leak Bilious peritonitis S/p Diagnostic laparoscopy, abdominal washout, drain placement and diverting loop ileostomy creation Atrophic vaginitis Anemia Diabetes Mellitus Type 2 Septic Shock Cirrhosis of liver Oesophageal Varices PLAN: Labs, diagnostic, radiologic exams reviewed and interpreted by myself and supervising physician. We have reviewed external records in detail Order serum osmolality Pending cortisol level Pending abscessogram for possible percutaneous drain removal Continue with antibiotics as per ID BiPAP as necessary, for respiratory distress Monitor blood pressure adjust medication doses as needed Avoid hypotensive episodes May use Dilaudid 0.5 mg IV every 6 hours as needed for severe pain Monitor blood sugars Strict intake, output, and daily weight should be monitored Please renally adjust medications Avoid nephrotoxic and nonsteroidal drugs Avoid contrast if possible Will continue to monitor renal function, anemia, electrolytes Treatment plan discussed with patient Questions were answered We have discussed with the other team physicians in detail about the care plan We will continue to monitor the patient closely ATTESTATION BY PHYSICIAN I have seen and examined the patient. I reviewed the documentation, medical decision making, and treatment plan as noted by the mid-level provider above. I agree with the findings and plan of care. CIELO PORTILLO MD, [facility] Aug 23, 2025 12:45
[2025-08-23] MEDS: HYDROcodone/APAP 5/325 1 TAB TABLET PO ONE (21:19)
--- NOTE | 2025-08-23 21:25 | PN ---
INFECTIOUS DISEASE PROGRESS NOTE Date of Service: Aug 23, 2025 SUBJECTIVE: Patient is afebrile, temperature is 98.2. Sodium level is low at 124. Patient is pending a CT scan of the abdomen to be done today. We will discontinue antibiotics if no abscess is found, for now we will continue on Zosyn and fluconazole. PHYSICAL EXAM EYES: Anicteric. Pupils equal and reactive. HENT: No oral thrush seen, moist Oral mucosa. NECK: Supple, no JVD or thyromegaly. LUNGS: Good air entry. No rales, no rhonchi. CARDIOVASCULAR: S1, S2 regular. No murmur heard. ABDOMEN: Soft, non tender, bowel sounds present. Left Perisplenic abscess percutaneous drainage catheter. Right ileostomy. Right cholecystostomy tube. CENTRAL NERVOUS SYSTEM: Awake, alert, oriented x 3. SKIN: No rashes, no swelling. LYMPHATICS: No peripheral lymphadenopathy. MUSCULOSKELETAL: No joint swelling, erythema or tenderness. EXTREMITIES: No cyanosis or clubbing. BACK: No deformity, no pressure ulcer. GENITOURINARY: No dysuria or hematuria. Vital Sign (Last 12 Hours) 08/23/25 08/23/25 08/23/25 10:00 11:20 15:52 Temp 98.2 97.7 Pulse 92 91 Resp 18 18 B/P (MAP) 113/69 108/71 Pulse Ox 98 98 98 O2 Delivery Room Air* Room Air Room Air O2 Flow Rate 0 FiO2 21 Intake & Output (last 24hrs) 08/22/25 08/22/25 08/23/25 15:00 23:00 07:00 Output Total 650 ml 200 ml 300 ml Balance -650 ml -200 ml -300 ml LABS: Laboratory: Test 08/23/25 19:35 08/23/25 04:40 08/22/25 19:40 Range/Units Whole Blood Glucose 137 H 70-110 MG/DL White Blood Count 6.4 4.8-10.8 K/uL Red Blood Count 3.77 L 4.00-5.50 MIL/uL Hemoglobin 11.2 L 12.0-16.0 g/dL Hematocrit 34.4 L 36-48 % Mean Corpuscular Volume 91.2 79-99 fL Mean Corpuscular Hemoglobin 29.7 27.0-33.0 pg Mean Corpuscular Hemoglobin Concent 32.6 32.0-36.0 g/dL Red Cell Distribution Width 17.0 H 11.0-15.5 % Platelet Count 204 130-400 K/uL Mean Platelet Volume 9.3 7.5-10.5 fL Immature Granulocyte % (Auto) 0.9 0-1 % Neutrophils (%) (Auto) 70.6 40.0-77.0 % Lymphocytes (%) (Auto) 15.6 L 21.0-51.0 % Monocytes (%) (Auto) 9.7 3.0-13.0 % Eosinophils (%) (Auto) 2.6 0.0-8.0 % Basophils (%) (Auto) 0.6 0.0-5.0 % Neutrophils # (Auto) 4.5 1.8-7.7 K/uL Lymphocytes # (Auto) 1.0 1.0-4.8 K/uL Monocytes # (Auto) 0.6 0.1-1.0 K/uL Eosinophils # (Auto) 0.17 0.00-0.70 K/uL Basophils # (Auto) 0.04 0.00-0.20 K/uL Absolute Immature Granulocyte (auto 0.06 0-1 K/uL Nucleated Red Blood Cells 0.0 0.0-0.19 % Sodium Level 124 L 136-145 mmol/L Potassium Level 4.6 3.5-5.1 mmol/L Chloride Level 96 L 101-111 mmol/L Carbon Dioxide Level 18 L 21-32 mmol/L Blood Urea Nitrogen 14 7-18 mg/dL Creatinine 1.0 0.5-1.0 mg/dL Glomerular Filtration Rate Calc 66 >90 mL/min Random Glucose 94 70-105 mg/dL Total Calcium 9.6 8.5-10.1 mg/dL Magnesium Level 1.70 L 1.80-2.40 mg/dL Total Bilirubin 1.0 0.2-1.0 mg/dL Aspartate Amino Transf (AST/SGOT) 44 H 10-37 U/L Alanine Aminotransferase (ALT/SGPT) 24 12-78 U/L Alkaline Phosphatase 209 H 50-136 U/L Total Protein 8.4 H 6.0-8.3 g/dL Albumin 2.9 L 3.5-5.0 g/dL Urine Osmolality 275 50-1200 mOsm/kg Urine Random Creatinine 70.81 30-135 mg/dL Urine Random Sodium < 13 L 40-220 mmol/l Urine Random Potassium 12 L 25-125 mmol/L Urine Random Chloride 22 L 110-250 mmol/L ASSESSMENT: Acute cholecystitis, s/p cholecystostomy tube placement on 08/02/2025. Concern for cholecystostomy tube dislodgement status post cholecystogram with findings of multiple gallstones on 08/09/2025. Perisplenic abscess, s/p CT-guided drainage placement on 08/09/2025. Persistent abdominal pain, s/p EGD with findings acute gastritis. Septic shock, resolved. Possible continues bacterial peritonitis. Generalized peritonitis with ESBL and E coli infection. Infection with multidrug resistant organism. Hypoalbuminemia, improving. Suspected bowel perforation, s/p diagnostic laparoscopy, abdominal washout, ileostomy creation and CHRIS drain placement on 07/21/2025, s/p CHRIS drain removal. Diabetes mellitus. Recent colovesical fistula repair with sigmoid colon resection and anastomosis on 07/09/2025 PLAN: Continue Zosyn. Continue fluconazole. Continue pain management. Continue GI prophylaxis. Continue antidiabetics. Continue nutritional support. Pending an abscessogram to be done. Pending CT of the abdomen. Plan to discontinue antibiotics if CT scan or abscessogram results is negative for abscess. This case was reviewed and discussed with my supervising physician Dr. Roger and the above assessment and plan was formulated and agreed upon. ATTESTATION BY PHYSICIAN I have seen and examined the patient. I reviewed the documentation, medical decision making, and treatment plan as noted by the mid-level provider above. I agree with the findings and plan of care. AMIE ROGER MD, [facility] Aug 23, 2025 21:25
--- NOTE | 2025-08-23 23:20 | NUR ---
ILEOSTOMY CHANGE PATIENT CALLED NURSING STAFF DUE TO LEAKING TO BAG. NOTED DRAINAGE TO GOWN AND BRIEF. OSTOMY BAG CHANGED AND MESH UNDERWEAR REMOVED THAT PATIENT HAD OVER BRIEF. PATIENT TOLERATED OSTOMY BAG CHANGE. NEW GOWN PROVIDED FOR PATIENT. BED LOWERED TO LOWEST SETTING AND WHEELS LOCKED IN PLACE. BED RAILS UP X2. BED ALARM TURNED ON.
[2025-08-24] VITALS (9 sets, daily range): BP systolic 106–133; BP diastolic 71–82; PULSE 85–94; RESP 16–18; TEMP 97.8–98.3; O2SAT 98–99
--- NOTE | 2025-08-24 04:35 | NUR ---
ILEOSTOMY CHANGE PATIENT CALLED NURSING STAFF DUE TO ILEOSTOMY LEAKING FROM BOTTOM. BAG CHANGED AT THIS TIME. PATIENT TOLERATED WELL.
[2025-08-24 05:27] LABS: NUCLEATED RED BLOOD CELLS 0.0 % (0.0-0.19); PLATELET COUNT (AUTO) 226.0 K/uL (130-400); RED BLOOD CELL COUNT(AUTO) 4.02 MIL/uL (4.00-5.50); RED CELL DISTRIBUTION WIDTH 17.2 % (11.0-15.5); WHITE BLOOD COUNT (AUTO) 6.5 K/uL (4.8-10.8)
--- NOTE | 2025-08-24 05:54 | NUR ---
ILEOSTOMY CHANGE PATIENT'S ILEOSTOMY BAG LEAKED AGAIN. BAG CHANGED AT THIS TIME. PATIENT TOLERATED ILEOSTOMY BAG CHANGE.
[2025-08-24 05:57] LABS: ASPARTATE AMINOTRANSFERASE 48.0 U/L (10-37); CREATININE 1.2 mg/dL (0.5-1.0); GLOMERULAR FILTR. RATE CALC 53.0 mL/min (>90); GLUCOSE,RANDOM 122.0 mg/dL (70-105); SODIUM SERUM 124.0 mmol/L (136-145); TOTAL PROTEIN, SERUM 9.0 g/dL (6.0-8.3); UREA NITROGEN, BLOOD 17.0 mg/dL (7-18)
--- NOTE | 2025-08-24 08:23 | HMCIMG ---
CT ABDOMEN W/O CONTRAST HISTORY: Patient is has a left inferior spleen fluid collection. Catheter drainage catheter which is not draining for removal. COMPARISON: Prior study from 08/04/2025 is available. TECHNIQUE: Multiple sequential axial images of the abdomen were obtained from the dome of the diaphragm through iliac crests. Patient was not given contrast through intravenous route. Oral contrast was not given. FINDINGS: No pleural effusion is seen bilaterally. There is no evidence of parenchymal disease or pulmonary nodule of the visualized lower lungs. Degenerative changes are seen of the thoracolumbar spine. The liver, adrenal glands and pancreas are unremarkable. There is a splenomegaly which is unchanged from prior CT. Spleen measures 17 cm. There is a cholecystotomy tube in place with decompressed gallbladder. There is a inferior splenic fluid collection with a drainage catheter in place with the fluid collection still persistent. There is no evidence of hydronephrosis bilaterally. No evidence of renal stone is seen. Fecal material is seen in the colon. There is a ileostomy in the right side of the abdomen. There are normal-sized retroperitoneal and mesenteric lymph nodes. No ascites is seen. Atherosclerotic changes are present. IMPRESSION: 1. There is a fluid collection with the pigtail catheter in place. The catheter was flushed with 10 cc of saline and would recommend keeping the catheter in place. I would recommend continuing flushing daily with 10 cc of saline and measure up with daily. 2. Splenomegaly 3. Cholecystotomy tube in place with decompressed gallbladder. CT was performed with one or more following dose reduction techniques: automated exposure control, adjustment of the mA and kv according to patient's size, or use of a iterative reconstruction technique.
--- NOTE | 2025-08-24 09:20 | PN ---
[facility] PROGRESS NOTE Date of Service: Aug 24, 2025 Time of Service: 09:20 SUBJECTIVE: Ms. Gray is a 55-year-old female that was seen and examined today on 07/20/2025. Patient reports that she came to the emergency department with a chief complaint of abdominal pain. Onset was 07/09/2025. Location is all four quadrants. Duration is constant. Character is described as pressure and " like I have a lot of gas trapped. " there was no alleviating factors. There was no aggravating factors. Patient reports associated abdominal swelling. 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 After the discharge she was taking pain medications and her condition started worsening after few days. She is in constant follow up with Dr Gann. Today in the emergency department WBCs 21.2, left shift neutrophils 85.5%, BUN 26, creatinine 3.1, GFR 17, lactic acid 8.0, no urinalysis has been collected or sent to lab, CT of abdomen and pelvis showed of free air in the abdomen which could be a suspected bowel perforation versus postsurgical changes, moderate ascites, fissure post surgical changes. Chest x-ray shows right pleural effusion. Additionally patient had a heart rate of 125, respirations 26, together with leukocytosis and lactic acidosis patient met clinical sepsis criteria additionally patient's blood pressure dropped to 85/50 mmHg requiring vasopressor support therefore meeting criteria for septic shock. Patient will be admitted to the intensive care unit. Emergency room physician spoke with patient's surgeon, Dr. Gann who requested patient be admitted under hospitalist service and she will follow this case along. 07/21/25 Patient was evaluated at the bedside. She was accompanied by her daughter. She is oriented to the time, place and person. She complained of abdominal pain in all the quadrants. She hasn't had bowel movement since Saturday and also is unable to pass flatus at this time. She has guarding, rigidity and tenderness all over the abdomen, showing the signs of peritonitis. She was seen by Dr Gann this m and is planned to be taken to OR this afternoon. Dueñas catheter is in place, as she wasn't able to pass the urine. There is no fever, chills and any other signs of infection. 07/22/25 Patient was evaluated at the bedside. She was accompanied by her daughter. She is oriented to the time, place and person. She underwent Diagnostic laparoscopy, abdominal washout, drain placement and diverting loop ileostomy creation, The procedure revealed Bilious peritonitis, 2 mm perforation of the colonic anastomosis. She is hemodynamically stable with Blood pressure of 110/73 and HR of 83. Currently she complains of abdominal pain which is getting better than yesterday, its 3-4/10 intensity. There is no rigidity. She is anxious about the outcomes and had discussion regarding her current clinical status and lab parameters. There is no fever, chills and any other signs of infection. 07/23/25 Patient was evaluated at the bedside. She was accompanied by her daughter. She is oriented to the time, place and person. She status post diagnostic laparoscopy, abdominal washout, drain placement and diverting loop ileostomy creation. Currently she complains of abdominal pain which is 5/10 intensity. She also complaints of mild lower back pain There is no fever, chills and any other signs of infection. She has CHRIS drain in-situ with clear fluid along with colostomy bag. She is currently tolerating clear liquid diet. 07/24/2025 Patient is seen and examined at the bedside. Vitals blood pressure ranging in 100s/50s, pulse rate 50s, SpO2 greater than 95% on room air. She mentions about experiencing pressure-like discomfort on the right side of the abdomen and pain when she tries to eat. No acute events last night. She denies fever, chills, nausea, vomiting, chest pain. CHRIS output approximately 100cc/hr, serosanguineous fluid. Ileostomy bag in place. She is tolerating clear liquid diet without any nausea/vomiting. Labs hemoglobin 9.8, BUN 38, creatinine improved from 1.6-1.1. 07/25/2025 Patient is seen and examined at the bedside. She complains of abdominal pain which is 7/10 in intensity. No acute events last night. She denies fever, chills, nausea, vomiting, chest pain. CHRIS output approximately 100cc/hr, serosanguineous fluid. Ileostomy bag in place. The patient has been started on spironolactone 25mg BID and Lasix 20 mg once daily. There is high output from CHRIS but it is clear serous, most likely related to her ascites from her history of liver cirrhosis. She is tolerating clear liquid diet without any nausea/vomiting. 07/26/2025 Patient is seen and examined at the bedside. She complains of abdominal pain which remains constant. No acute events last night. She denies fever, chills, nausea, vomiting, chest pain. Patient is status post with a CHRIS drain. The drain has been collecting the serosanguineous fluid secondary to ascites. She has been tolerating liquid diet and her diet has been advanced to soft diet. She still h as bloating for which probiotics and fibers has been recommended. Hemoglobin has gradually trended down to 9.2 and was given IV Venofer. Patient to get up and ambulate and work with physical therapy. 07/27/2025 Patient is seen and examined at the bedside. She complains of abdominal pain which is 6/10 in intensity. No acute events last night. She denies fever, chills, nausea, vomiting, chest pain. Patient is unable to tolerate the soft diet, hence she is currently receiving the liquid diets. The CHRIS drain output is still high and there was small amount of drainage observed in the right ileostomy. 07/28/2025 Patient is seen and examined at the bedside. She complains of abdominal pain which is 9/10 in intensity. No acute events last night. She denies fever, chills, nausea, vomiting, chest pain. Patient reported pain after eating but no nausea or vomiting. WBC is gradually trending up from 8.3-7.3-11.1-11.8. She had lidocaine patch placed this morning. She was started on simethicone 80 mg yesterday. Pertinent she is currently receiving Dilaudid 0.5 mg. Abdominal ultrasound has been ordered for further assessment. 07/29/2025 Patient is seen and examined at the bedside. She continues to complain of severe abdominal pain, rated 9/10 in intensity, unchanged from prior. She is currently receiving Dilaudid 0.5 mg for pain. She reports discomfort related to Dueñas catheterization. She denies fever, chest pain, nausea or vomiting at this time. No acute events were reported overnight. Blood pressure noted today is noted to be 98/54 mm Hg which is slightly low. Per surgery team, stoma is likely to be removed today. Hemoglobin has trended down from 9.7 g/dl to 9.0 g/dl. 07/30/2025 Patient is seen and examined at the bedside. She continues to complain of severe abdominal pain. Her abdominal distention has slightly improved. Dueñas's catheter was removed due to persistent discomfort. We will continue with scheduled removal of the ascites fluid and from CHRIS bulb. Ultrasound of abdomen was concerning for cholelithiasis with biliary sludge and gallbladder distention. HIDA scan was performed today. If consistent with cholecystitis patient will need cholecystostomy tube placement. 07/31/2025 Patient is seen and examined at the bedside. She was accompanied by her daughter. She continues to complain of severe abdominal pain. She is currently on Dilaudid 0.5mg Q4H PRN, which relieves the symptoms for 2-3 hours, after that she develops same level of pain and discomfort again. Currently awaiting the HIDA scan results. Her sodium level is 133 and albumin level is trending downwards from 2.3 to 2.1. Her Iron panel results showed: Iron 20L, TIBC 147L and %sat 16.3L. For her continuos pain she is started on Fentanyl 25mcg. CHRIS drain culture has beens sent. Based on the results of HIDA scan, CT chest will be planned. 08/01/2025: Patient is seen and examined this morning at bedside. She was accompanied by her daughter. The patient complains of severe abdominal pain. She is currently being managed with [place], and Dilaudid for breakthrough pain. HIDA scan results are back, and show acute cholecystitis. Surgery has been made aware of the results. IR has been consulted for cholecystostomy tube placement. The patient will be started on PPN, as recommended by general surgery. The patient follows with Dr. Sol outpatient for her liver cirrhosis. The patients daughter would like her electronic device monitor Dr. Sol to be involved in the patients care, and be updated with her status. 08/02/2025: Patient is seen and evaluated in the room 432. She was accompanied by her daughter. She complains of severe abdominal pain. She also complained of bleeding through her vagina, pink tinged urine. Her vitals are in the normal range. Her labs are in the normal range except for Hb is 8.6, Na is 135, K is 5.2, BUN is 4, Glucose is 150, CRP is 103.90. She went for placement of cholecystectomy tube by IR. We did a pelvic exam and ordered a vaginal estrogen cream and urinalysis. Also for her hyperkalemia we checked the potassium again and its 4.1. So we will repeat the labs tomorrow. We ordered a dose of albumin for her. 08/03/2025: Patient is seen and evaluated in the room 432. She has mild abdominal pain today. Her pain improved after the placement for cholecystotomy tube. Her vitals are in the normal range. Her labs are normal except for hemoglobin 8.2, glucose 156, CRP 89.8. Her aerobic and anaerobic culture of drain showed no growth. Gastroenterology saw the patient and they recommended 25 grams of 25% IV albumin q12H for 3 days. Her bleeding through the vagina decreased. The drainage through the left abdomen is 100ml, right abdomen is 20ml, left anterior abdomen 5ml. 08/04/2025: Patient is seen and evaluated in the room 432. She has abdominal pain today. Her vitals are in the normal range. Her labs are normal except for Hb is 8, CRP is 72.10, glucose is 130. Aerobic and anaerobic drain culture showed no growth. She is not able to tolerate her food. The drainage through the left abdomen is 100ml, right abdomen is 20ml, left anterior abdomen 5ml. Gastroenterology is planning to do EGD tomorrow. Surgery wanted to do a CT abdomen and pelvis with IV contrast. CT scan showed perisplenic and infrasplenic fluid collection measuring 6.0 x 6.1 x 8.9 cm, splenomegaly, with spleen measuring 15.2 cm, cholecystostomy tube in situ with decompressed gallbladder, abdominal drain in situ with tip in the pelvis. We ordered T.bilirubin and we will monitor the output from colostomy tube. We are also planning to add metoclopramide. 08/05/2025: Patient is seen and evaluated in the room 432. She has abdominal pain today. Her abdomen is tender to touch and warm. Her vital signs are in the normal range except for BP is 117/45. Her labs are normal except for Hb is 8.2, sodium is 135, creatinine is 0.3, CRP is 60.9 The drain output from left abdomen is 40ml, left anterior abdomen 0ml, right abdomen 0ml. Her saturation is 100% on 10L of O2. Her labs are in the normal range except for Hb is 8.2, HCT is 25.9, sodium is 135, glucose is 107, CRP is 60.90. She underwent endoscopy today and they did biopsy from 3 sites. GI said that they will consult radiology to check whether CHRIS drain and cholecystostomy tube are in place. General surgery will consult IR to evaluate perisplenic fluid collection for potential aspiration. 08/06/2025: Patient is seen and evaluated in the room 432. She has abdominal pain today. Her abdomen is tender to touch and warm. Her vital signs are in the normal range except for 97/63. Her labs are in the normal range except for Hb is 8.1, sodium is 135, blood glucose is 151, CRP 53.60. We are waiting for IR consult for evaluation and for potential aspiration of perisplenic fluid. The drain output from right abdomen is 20ml. 08/07/2025: Patient is seen and evaluated in the room 432. She has abdominal pain today. Her abdomen is tender to touch and warm. Her vital signs are in the normal range except for blood pressure which is 102/60. Her labs are in the normal range except for Hb is 8.5, WBC is 4.4, RDW is 17.3, sodium is 134, glucose is 147. We are waiting for IR consult for evaluation and for potential aspiration of perisplenic fluid. The drain output from right abdomen is 20ml. The GIFT SHOP CLERK told me that she eats her food after taking her pain medications. Nurse is planning to start full liquid diet for lunch. 08/08/2025: She was evaluated at the bedside this morning. She is AAO x3. she complained of epigastric pain which gets worse with food . Moderate tenderness was appreciated on the epigastric region. Her blood pressure is 99/46, pulse 80. Remarkable lab is for WBC of 4.8, hemoglobin 9, CRP 43.90. She is scheduled with IR for perisplenic fluid aspiration and checking the position of cholecystostomy tube. She is on full liquid diet. She is on Zosyn, fluconazole. Surgery, GI, ID on the board. Rest of the plan as discussed below. 08/09/2025: Patient went to labor crew supervisor for PROCEDURE. As per nurse, her cholecystostomy tube was already correctly positioned but had some stones so tube was flushed. She complained of epigastric and pelvic pain. For pain control, fentanyl patch has been ordered. She is pending perisplenic fluid aspiration by IR. Her blood pressure is 98/58, pulse 90. She is currently NPO. She is on Zosyn, fluconazole. Surgery, GI, ID on the board. Rest of the plan as discussed below. 08/10/2025: Patient was seen and examined at bedside. She underwent CT GUIDED PERISPLENIC PIGTAIL DRAINAGE CATHETER PLACEMENT with Aspiration of perisplenic fluid. There has been 25 ml sanguinous drainage so far in the catheter. Her cholecystostomy tube has had 30 mL drainage in the past 24 hours. She is currently on clear liquid diet tolerating it well. She continues to complain pain in her abdomen without any peritoneal signs. She was started on fentanyl patch yesterday. Gram stain and body fluid culture were sent after drainage of perisplenic abscess which showed RARE GRAM POSITIVE COCCI after 1 day. Patient is currently on Zosyn. 08/11/2025: Patient was seen and examined. She continues to complain of abdominal pain. Her multimodal pain medications were adjusted with fentanyl increased to 25mcg and Dilaudid frequency changed from q.4h to q.6h. She is currently on clear liquid diet and complains of pain while eating. She continues on Zosyn and fluconazole. We are waiting for culture results after drainage of perisplenic abscess. Incision site is clean, dry and intact. Will continue to follow recommendations from ID, General surgery and Nephrology. 08/12/2025: Patient was seen and examined at bedside. She complained of pain in right upper abdomen as well as left lower quadrant, along the drainage catheter insertion. No peritoneal signs present. She is currently on multimodal pain management. Today, we are advancing her to full liquid diet. Culture results have been negative so far. Incision site is clean, dry and intact. Will continue to follow recommendations from ID, General surgery and Nephrology. 08/13/2025: Patient was seen and examined at bedside. She complained of pain in right upper quadrant and left quadrant of abdomen along the line of drainage catheter placement. Comparatively, her pain is better than yesterday and patient states that she feels pain in between pain medication. No peritoneal signs are present. We will follow up with General surgery for CHRIS drain removal as there has been 0 to minimal drainage in the past few days. Patient is currently on full liquid diet. 08/14/2025 Patient is seen and examined at the bedside. She complains of intermittent pain in the left upper quadrant near the drainage catheter site which is well controlled with pain medications. No acute events last night. Vitals blood pressure in 90s/50s. Urine output 1.4 L, stool 1.2 L [ileostomy bag], 23 mL from left abdominal drain, 20 mL from right abdominal drain, 15 mL from RUQ drain over the last 24 hours. She denies fever, chills, chest pain/shortness of breath, tingling/numbness/pain in bilateral lower extremities. She is able to tolerate GI soft/bland diet without any nausea/vomiting. Labs WBC 4.1, hemoglobin stable at 8.9. We will continue parenteral nutrition. 08/15/2025: Patient was seen and examined this morning at bedside. The patient reports continued abdominal pain, worse on her left upper quadrant. The patient states that when she takes her pain medication, the pain resolves. However, without the pain medication, the patient reports that the pain remains prominent. Duloxetine will be started for its dual benefit in managing the abdominal pain and addressing potential underlying mood symptoms that may be amplifying the patients pain perception. I educated the patient on importance of eating her GI soft diet. We will continue to follow ID and surgery recommendations. 08/16/2025: Patient was seen and examined this morning at bedside in room 432. Patient admits to have continued nausea since yesterday and is unable to tolerate any food. Her CHRIS drain was removed yesterday and still continues to have left upper quadrant and right upper quadrant drains. Patient is discontinued from Dilaudid and is currently managed with p.r.n. [place] q.4. Dr. Gann recommended to reduce the dose of TPN to 40 mL to assess if patient's appetite improves. They also changed metoclopramide to scheduled q.12. We will follow the surgery and ID recommendations. 08/17/2025: Patient was examined at bedside in room 432. Patient reports improved nausea and is able to tolerate fruits however still does not have appetite for regular meals. Patient reports mild abdominal tenderness however denies fever, nausea, vomiting. Patient has no abdominal rigidity. Patient has abdominal drains have minimal drainage and shows no signs of infection. We encouraged the patient to eat GI soft diet as tolerated. We will continue to follow recommendations from ID and surgery. 08/18/2025: Patient was examined at bedside in room 432. Patient reports improved nausea and is able to tolerate her diet however only completes 25-50% of her meals. Her TPN rate was reduced to 20 mL/hour. Patient has mild abdominal tenderness at the right cholecystostomy drain site and left upper quadrant drain, without signs of infection. Patient has ileostomy bag was replaced yesterday for leakage and shows cleared fluid. We encouraged the patient to complete her meals. Surgical team is planning to discharge the patient by the end of the week and we will follow their recommendations closely. 08/19/2025: Patient was examined at bedside in room 432. Patient reports improved nausea and is able to tolerate her diet, however does not complete her meals. Her TPN and fat emulsions will be stopped today and is encouraged to increase dietary intake and protein with Ensure drinks. The surgical team plans to remove her left upper quadrant drain after performing an abscess fistula study. In the meantime case management has been consulted for possible placement in a group home versus home health care. Otherwise patient remained afebrile, mild abdominal pain around the drainage catheter sites, no guarding or rigidity. We will follow the surgical team recommendations closely and anticipate her discharge by the end of the week. 08/20/2025: Patient was examined at bedside in room 432. Patient reported improved nausea and is able to tolerate her diet. Her TPN has been stopped and his encouraged to increase her dietary intake and protein with Ensure drinks. An abscess fistula study has been ordered by Surgical team however as IR is not available till Saturday, it will be done at a later time. Her abdomen is soft, nontender and is there is no guarding or rigidity. Multimodal pain management is being continued but continues to taper off from pain medication. Patient is ambulating in the hallways with support. We will follow surgical team recommendations. 08/21/2025: The patient was evaluated at the bedside today with the RN present during assessment. She appears comfortable and is in no acute distress. Vital signs have remained stable, and laboratory results are within normal limits. Surgical team plans for an abscessogram with possible drain removal on Saturday. The patient continues on IV antibiotics and currently denies any complaints or concerns. 08/22/2025: The patient was evaluated at the bedside today with the RN present during assessment. She appears comfortable and is in no acute distress. Vital signs have remained stable, and laboratory results are within normal limits. Dino gical team plans for an abscessogram with possible drain removal on Saturday. Patient was seen ambulating in the hallways comfortably along with her daughter. The patient continues on IV antibiotics and currently denies any complaints or concerns. 08/23/2025: The patient was evaluated at bedside today with attending present. She appears comfortable and is in no acute distress and denies any abdominal pain. Patient still has the ileostomy bag and the left upper quadrant drain in place. Ileostomy bag has serous fluid collection had been involved drainage in the left upper quadrant drain. Patient is pending abscess of g today to evaluate for removal of splenic drain. We encouraged the patient to increase her dietary intake and also included pain at better in her breakfast to improve salt intake. We will follow up for the surgical team for further recommen dations. 08/24/2025: Patient was evaluated at bedside with the RN present in room 410. Patient had no acute events overnight and had 3 replacement of her ileostomy bag for leakage. CT abdomen showed fluid collection still present in the inferior part of spleen and recommended keeping the catheter in place and continue flushing daily with 10 cc of saline. Her cholecystostomy tube is still in place with decompressed gallbladder. Patient was encouraged to increase her dietary intake and also eat more peanut butter to thicken the intestinal secretions. We will await for recommendations from surgery. [15:00, 08/24/2025:] Patient was cleared for discharge by surgery team with the abdominal drains in place and follow up with her on outpatient basis. However, patient was apprehensive about managing them at home including flushing them d aily and the supplies. Patient and her daughter were reassured that we will provide more hands on training and education about safely managing the drains and flushing with the help of nurse. As the patient is uninsured, we will request trimming caser to find supplies that she needs to manage her drains at home. Patient and her daughter gave agreement to be discharged tomorrow. REVIEW OF SYSTEMS CONSTITUTIONAL: No fever, chills, or night sweats. NEUROLOGICAL: Denies headache, sensory and motor deficit. CARDIOVASCULAR: Denies any exertional angina, dyspnea on exertion, palpitations. PULMONARY: Denies any shortness of breath, cough, phlegm/sputum, hemoptysis, pleuritic chest pain. GASTROINTESTINAL: Denies nausea. Denies vomiting. No peritoneal signs observed. Mild abdominal discomfort at the drain sites. GENITOURINARY: Denies frequency, urgency, nocturia, hematuria or incontinence. PHYSICAL EXAM GENERAL APPEARANCE: The patient is alert, awake and oriented and bedbound. NEUROLOGICAL: No sensory and motor deficits. CHEST: Normal chest expansion. LUNGS: Normal Vesicular breath sound. Absence of any rales, rhonchi or any wheezing. CARDIOVASCULAR: Regular. S1 and S2 normal. No appreciable rubs, murmurs or gallops. ABDOMEN: Abdomen is soft and slightly tender. Ileostomy creation. C holecystostomy and left upper abdominal quadrant catheter in place. Absence of guarding, rigidity and rebound tenderness GENITOURINARY: No suprapubic tenderness. No costovertebral angle tenderness. Vital Signs (last 8hr) Date Time Temp Pulse Resp B/P (MAP) Pulse Ox O2 Delivery O2 Flow Rate FiO2 08/24/25 08:01 98.2 85 16 110/71 99 Room Air 08/24/25 04:00 97.9 92 18 106/74 94 Room Air LABS: Laboratory: Test 08/24/25 05:32 08/24/25 05:21 08/23/25 04:40 08/22/25 19:40 Range/Units Whole Blood Glucose 125 H 70-110 MG/DL White Blood Count 6.5 4.8-10.8 K/uL Red Blood Count 4.02 4.00-5.50 MIL/uL Hemoglobin 12.0 12.0-16.0 g/dL Hematocrit 36.6 36-48 % Mean Corpuscular Volume 91.0 79-99 fL Mean Corpuscular Hemoglobin 29.9 27.0-33.0 pg Mean Corpuscular Hemoglobin Concent 32.8 32.0-36.0 g/dL Red Cell Distribution Width 17.2 H 11.0-15.5 % Platelet Count 226 130-400 K/uL Mean Platelet Volume 9.1 7.5-10.5 fL Nucleated Red Blood Cells 0.0 0.0-0.19 % Sodium Level 124 L 136-145 mmol/L Potassium Level 5.1 3.5-5.1 mmol/L Chloride Level 97 L 101-111 mmol/L Carbon Dioxide Level 19 L 21-32 mmol/L Blood Urea Nitrogen 17 7-18 mg/dL Creatinine 1.2 H 0.5-1.0 mg/dL Glomerular Filtration Rate Calc 53 >90 mL/min Random Glucose 122 H 70-105 mg/dL Total Calcium 10.0 8.5-10.1 mg/dL Total Bilirubin 0.8 0.2-1.0 mg/dL Aspartate Amino Transf (AST/SGOT) 48 H 10-37 U/L Alanine Aminotransferase (ALT/SGPT) 25 12-78 U/L Alkaline Phosphatase 227 H 50-136 U/L Total Protein 9.0 H 6.0-8.3 g/dL Albumin 3.1 L 3.5-5.0 g/dL Immature Granulocyte % (Auto) 0.9 0-1 % Neutrophils (%) (Auto) 70.6 40.0-77.0 % Lymphocytes (%) (Auto) 15.6 L 21.0-51.0 % Monocytes (%) (Auto) 9.7 3.0-13.0 % Eosinophils (%) (Auto) 2.6 0.0-8.0 % Basophils (%) (Auto) 0.6 0.0-5.0 % Neutrophils # (Auto) 4.5 1.8-7.7 K/uL Lymphocytes # (Auto) 1.0 1.0-4.8 K/uL Monocytes # (Auto) 0.6 0.1-1.0 K/uL Eosinophils # (Auto) 0.17 0.00-0.70 K/uL Basophils # (Auto) 0.04 0.00-0.20 K/uL Absolute Immature Granulocyte (auto 0.06 0-1 K/uL Magnesium Level 1.70 L 1.80-2.40 mg/dL Urine Osmolality 275 50-1200 mOsm/kg Urine Random Creatinine 70.81 30-135 mg/dL Urine Random Sodium < 13 L 40-220 mmol/l Urine Random Potassium 12 L 25-125 mmol/L Urine Random Chloride 22 L 110-250 mmol/L Current Medications Medications (Trade) Dose Ordered Sig/Gregory Route PRN Reason Start Time Stop Time Status Last Admin Dose Admin Acetaminophen (TYLenol 500MG TAB) 500 mg Q6H6 PRN PO MILD PAIN (1-3) 07/27/25 16:30 08/07/25 12:15 DC Acetaminophen (TYLenol 500MG TAB) 500 mg Q6H6 PRN PO MILD PAIN (1-3) 08/07/25 10:00 08/07/25 10:03 DC Acetaminophen (TYLenol 650MG SUPPOSITORY) 650 mg Q6H PRN RC MILD PAIN (1-3) 07/21/25 00:00 07/27/25 16:22 DC Acetaminophen/ Hydrocodone Bitart (NORco 5/325MG) 1 tab Q4H PRN PO MODERATE PAIN (4-6) 07/31/25 16:30 08/05/25 16:29 DC 08/05/25 14:57 1 TAB Acetaminophen/ Hydrocodone Bitart (NORco 5/325MG) 1 tab Q4H PRN PO MODERATE PAIN (4-6) 08/07/25 12:30 08/12/25 12:29 DC 08/12/25 00:46 1 TAB Acetaminophen/ Hydrocodone Bitart (NORco 5/325MG) 1 tab Q4H PRN PO MODERATE PAIN (4-6) 08/12/25 16:30 08/17/25 16:29 DC 08/17/25 10:17 1 TAB Acetaminophen/ Hydrocodone Bitart (NORco 5/325MG) 1 tab Q6H PRN PO MODERATE PAIN (4-6) 08/17/25 21:30 08/22/25 21:29 DC 08/22/25 19:25 1 TAB Albumin Human 50 ml @ 100 mls/hr Q12H IV 08/02/25 21:30 08/05/25 09:59 DC 08/05/25 10:12 100 MLS/HR Albumin Human 50 ml @ 0 mls/hr Q12H IV 08/02/25 18:30 08/02/25 20:04 DC Albumin Human 100 ml @ 0 mls/hr ONCE IV 07/25/25 12:00 07/26/25 11:59 DC 07/25/25 13:43 100 MLS/HR Clotrimazole (Lotrimin) 1 GM BID TP 07/29/25 21:00 08/28/25 20:59 08/24/25 09:10 1 GM Cyclobenzaprine HCl (Cyclobenzaprine HCl) 5 mg TID PO 07/25/25 14:00 07/26/25 14:00 DC 07/26/25 14:19 5 MG Duloxetine HCl (CymbALTA 30 mg CAP) 30 mg BID PO 08/15/25 21:00 09/14/25 20:59 08/24/25 09:09 30 MG Fat Emulsion Intravenous 250 ml @ 42 mls/hr DAILY10 IV 08/13/25 10:00 08/19/25 10:44 DC 08/18/25 09:57 42 MLS/HR Fentanyl (DURAgesic 12 MCG/HR PATCH) 12 mcg Q72H TD 08/09/25 13:00 08/09/25 15:19 DC Fentanyl (DURAgesic 12 MCG/HR PATCH) 12 mcg Q72H TD 08/09/25 15:30 08/11/25 10:32 DC 08/09/25 15:38 12 MCG Fentanyl (DURAgesic 25 MCG/HR PATCH) 25 mcg Q72H TD 07/31/25 14:30 07/31/25 14:44 DC Fentanyl (DURAgesic 25 MCG/HR PATCH) 25 mcg Q72H TD 08/12/25 15:30 08/12/25 16:00 DC Fentanyl (DURAgesic 25 MCG/HR PATCH) 25 mcg Q72H TD 08/12/25 21:00 08/17/25 20:59 DC 08/16/25 00:02 25 MCG Fluconazole/ Sodium Chloride 100 ml @ 100 mls/hr DAILY IV 08/20/25 22:30 08/25/25 23:00 08/24/25 09:10 100 MLS/HR Fluconazole/ Sodium Chloride (DiFLUCan 200 MG/ NS 100 ML) 200 mg Q24H IVPB 07/21/25 21:00 08/20/25 20:59 DC 08/19/25 20:18 200 MG Furosemide (LASix 20MG TAB) 20 mg DAILY PO 07/25/25 11:00 08/02/25 11:53 DC 08/02/25 09:42 20 MG Gabapentin (NEURontin 100 mg CAP) 100 mg TID PO 07/29/25 14:00 08/02/25 09:21 DC 08/01/25 20:14 100 MG Gabapentin (NEURontin 100 mg CAP) 100 mg TID PO 08/11/25 21:00 09/10/25 20:59 08/24/25 09:09 100 MG Home Med (Compound Po Narcotic) HS TD 08/12/25 21:00 08/21/25 00:24 DC Hydromorphone HCl (DiLAUDid 0.5MG INJ) 0.5 mg Q4H PRN IVP SEVERE PAIN (7-10) 07/24/25 10:00 07/29/25 09:59 DC 07/29/25 08:22 0.5 MG Hydromorphone HCl (DiLAUDid 0.5MG INJ) 0.5 mg Q4H PRN IVP SEVERE PAIN (7-10) 07/29/25 13:30 08/03/25 13:29 DC 08/03/25 13:09 0.5 MG Hydromorphone HCl (DiLAUDid 0.5MG INJ) 0.5 mg Q4H PRN IVP SEVERE PAIN (7-10) 08/03/25 18:00 08/07/25 10:03 DC 08/07/25 05:09 0.5 MG Hydromorphone HCl (DiLAUDid 0.5MG INJ) 0.5 mg Q4H PRN IVP SEVERE PAIN (7-10) 08/07/25 10:00 08/11/25 10:32 DC 08/10/25 20:27 0.5 MG Hydromorphone HCl (DiLAUDid 0.5MG INJ) 0.5 mg Q6H PRN IVP SEVERE PAIN (7-10) 08/11/25 11:00 08/16/25 10:59 DC 08/15/25 16:03 0.5 MG Insulin Human Regular (humuLIN R 100 UNIT/ML 3ML) INSULIN SLIDING SCAL... ACHS SQ 07/21/25 07:30 08/20/25 07:29 DC 08/18/25 17:31 2 UNIT Ketorolac Tromethamine (toRADol) 15 mg Q8H PRN IM MODERATE PAIN (4-6) 08/15/25 18:30 08/16/25 06:57 DC 08/16/25 00:01 15 MG Lactated Ringer's 1,000 ml @ 75 mls/hr [id number] IV 07/21/25 00:00 07/21/25 13:17 DC 07/21/25 02:57 75 MLS/HR Lactated Ringer's 1,000 ml @ 75 mls/hr [id number] IV 07/21/25 13:30 07/24/25 11:09 DC 07/24/25 09:27 75 MLS/HR Lactobacillus Rhamnosus ([facility] & monEchelle) 1 each DAILY20 PO 07/26/25 20:00 08/25/25 19:59 08/23/25 20:47 1 EACH Lidocaine (Lidoderm Patch 5%) 1 patch DAILY TP 07/28/25 09:00 08/27/25 08:59 08/21/25 08:17 1 PATCH Lidocaine HCl/Al Hydroxide/Mg Hydroxide/ Dicyclomine HCl 20ML OR AD ONCE PO 08/06/25 16:30 08/07/25 16:29 DC 08/06/25 16:45 20 ML Magnesium Sulfate 50 ml @ 0 mls/hr PROTOCOL PRN IV MAGNESIUM PROTOCOL 07/21/25 07:00 08/20/25 06:59 DC 08/01/25 06:05 25 MLS/HR Methocarbamol (methoCARBamol) 500 mg BID PO 08/11/25 16:00 09/10/25 15:59 08/24/25 09:09 500 MG Metoclopramide HCl (regLAN 10MG IV) 5 mg BID IVP 08/04/25 21:00 09/03/25 20:59 08/24/25 09:09 5 MG Metronidazole/ Sodium Chloride (flaGYL) 500 mg Q8H IV 07/21/25 14:00 07/21/25 13:40 DC Morphine Sulfate (morPHINE 2MG SYG) 2 mg Q4H PRN IVP SEVERE PAIN (7-10) 07/21/25 00:30 07/21/25 13:18 DC 07/21/25 04:46 2 MG Morphine Sulfate (morPHINE 4MG SYG) 4 mg Q3H PRN IV MODERATE PAIN (4-6) 07/21/25 13:30 07/26/25 16:29 DC 07/26/25 10:51 4 MG Norepinephrine 250 ml @ 0 mls/hr PROTOCOL IV 07/20/25 23:30 08/03/25 08:27 DC 07/21/25 10:56 18.45 MLS/HR Ondansetron HCl (zoFRAN 4MG INJ) 4 mg Q4H PRN IVP NAUSEA 07/21/25 13:30 08/16/25 17:50 DC 08/16/25 10:23 4 MG Ondansetron HCl (zoFRAN 4MG INJ) 4 mg Q6H IVP 08/16/25 18:00 09/15/25 17:59 08/24/25 05:40 4 MG Ondansetron HCl (zoFRAN 4MG INJ) 4 mg Q6H PRN IV NAUSEA/VOMITING 07/21/25 00:00 07/21/25 13:18 DC Pantoprazole Sodium (PROTonix 40MG INJ) 40 mg BID IV 07/26/25 21:00 08/20/25 08:59 DC 08/19/25 20:16 40 MG Pantoprazole Sodium (PROTonix 40MG INJ) 40 mg BID IVP 08/05/25 21:00 08/06/25 08:39 DC 08/05/25 20:25 40 MG Pantoprazole Sodium (PROTonix 40MG INJ) 40 mg DAILY IV 07/21/25 09:00 07/26/25 09:31 DC 07/26/25 08:55 40 MG Pharmacy Profile Note (Pharmacy Communication) 1 each ONCE MISC 07/21/25 15:30 07/21/25 15:16 DC Pharmacy Profile Note (Pharmacy Communication) 1 each ONCE MISC 08/16/25 16:00 08/15/25 21:12 DC Pharmacy Profile Note (Pharmacy Communication) 1 each ONCE MISC 08/06/25 16:00 08/07/25 07:07 DC Piperacillin Sod/ Tazobactam Sod 50 ml @ 200 mls/hr ONCE STAT IVPB 07/20/25 19:15 07/20/25 19:29 DC 07/20/25 20:32 200 MLS/HR Piperacillin Sod/ Tazobactam Sod (Zosyn 3.375gm+NS 50ml) 3.375 gm Q12H IV 07/21/25 00:00 07/31/25 00:00 DC 07/30/25 23:55 3.375 GM Piperacillin Sod/ Tazobactam Sod (Zosyn 3.375gm+NS 50ml) 3.375 gm Q8H IVPB 07/31/25 11:30 08/10/25 11:29 DC 08/10/25 04:05 3.375 GM Piperacillin Sod/ Tazobactam Sod (Zosyn 3.375gm+NS 50ml) 3.375 gm Q8H IVPB 08/20/25 23:00 08/23/25 06:05 DC 08/23/25 00:15 3.375 GM Piperacillin Sod/ Tazobactam Sod (Zosyn 3.375gm+NS 50ml) 3.375 gm Q8H IVPB 08/23/25 08:00 09/02/25 07:59 08/24/25 09:08 3.375 GM Piperacillin Sod/ Tazobactam Sod (Zosyn 3.375gm+NS 50ml) 3.375 gm Q8H IVPB 08/10/25 13:00 08/20/25 12:59 DC 08/20/25 04:32 3.375 GM Potassium Chloride 100 ml @ 100 mls/hr AD PRN IV POTASSIUM PROTOCOL 07/24/25 08:30 08/23/25 08:29 DC 07/30/25 06:23 100 MLS/HR Potassium Chloride (K-Dur/Klor-Con 20meq) 20 meq AD PRN PO POTASSIUM PROTOCOL 07/24/25 08:30 08/23/25 08:29 DC 07/27/25 20:33 20 MEQ Potassium Chloride (KCl 10% Elixir 20meq/15ml) 20 meq AD PRN PO POTASSIUM PROTOCOL 07/24/25 08:30 08/23/25 08:29 DC 07/31/25 08:15 20 MEQ Psyllium Hydrophilic Mucilloid (Metamucil) 1 tbs BID PO 07/26/25 21:00 08/25/25 20:59 08/24/25 09:09 1 TBS Simethicone (Mylicon) 80 mg Q6H6 PO 07/27/25 12:00 08/26/25 11:59 08/24/25 05:40 80 MG Sodium Bicarbonate 150 meq/Sodium Chloride 1,150 ml @ 0 mls/hr Q0M IVP 07/21/25 14:00 07/26/25 09:31 DC Sodium Chloride (NS 50ml) 50 ml AD IV 07/31/25 11:30 07/31/25 11:12 DC Sodium Chloride (NS 50ml) 50 ml AD IV 08/20/25 22:30 08/20/25 22:43 DC Sodium Chloride (Normal Saline Flush) 10 ml Q8H IJ 08/09/25 11:00 09/08/25 10:59 08/24/25 03:22 10 ML Spironolactone (Aldactone 25mg) 25 mg BID PO 07/25/25 21:00 07/26/25 09:01 DC 07/26/25 08:56 25 MG Sucralfate (Carafate) 1 gm ACHS PO 07/29/25 21:00 08/28/25 20:59 08/24/25 09:08 1 GM Thiamine HCl (Vitamin B-1) 100 mg DAILY IVP 07/22/25 21:00 08/21/25 20:59 DC 08/21/25 08:15 100 MG Thiamine HCl 100 mg/Sodium Chloride 50 ml @ 100 mls/hr Q24H IM 07/21/25 15:30 07/21/25 16:25 DC Vancomycin HCl (Vancomycin 1g/ 250ml Kit) 1 gm ONCE STAT IV 07/20/25 21:23 07/20/25 21:26 DC 07/20/25 22:06 1 GM Vasopressin 20 units/Sodium Chloride 100 ml @ 0 mls/hr PROTOCOL IV 07/21/25 00:30 08/03/25 08:27 DC 07/21/25 00:10 9 MLS/HR DIAGNOSTICS / RADIOLOGY: [ ] PATIENT: DALLAS BUCHANAN MR#: [id number] : 1970 SEX: F AGE: 55 LOCATION: 4AH ORDER 7 STATUS: ADM IN REPORT#: [id number] SERVICE 0900 REASON: EVALUATE PIGTAIL CATHETER FOR POSSIBLE REMOVAL ORDERING PHYSICIAN: BENEDICTO OBRIEN Jr. PAC PROCEDURE: ABDO WO - CT ABDOMEN W/O CONTRAST CT ABDOMEN W/O CONTRAST HISTORY: Patient is has a left inferior spleen fluid collection. Catheter drainage catheter which is not draining for removal. COMPARISON: Prior study from 08/04/2025 is available. TECHNIQUE: Multiple sequential axial images of the abdomen were obtained from the dome of the diaphragm through iliac crests. Patient was not given contrast through intravenous route. Oral contrast was not given. FINDINGS: No pleural effusion is seen bilaterally. There is no evidence of parenchymal disease or pulmonary nodule of the visualized lower lungs. Degenerative changes are seen of the thoracolumbar spine. The liver, adrenal glands and pancreas are unremarkable. There is a splenomegaly which is unchanged from prior CT. Spleen measures 17 cm. There is a cholecystotomy tube in place with decompressed gallbladder. There is a inferior splenic fluid collection with a drainage catheter in place with the fluid collection still persistent. There is no evidence of hydronephrosis bilaterally. No evidence of renal stone is seen. Fecal material is seen in the colon. There is a ileostomy in the right side of the abdomen. There are normal-sized retroperitoneal and mesenteric lymph nodes. No ascites is seen. Atherosclerotic changes are present. IMPRESSION: 1. There is a fluid collection with the pigtail catheter in place. The catheter was flushed with 10 cc of saline and would recommend keeping the catheter in place. I would recommend continuing flushing daily with 10 cc of saline and measure up with daily. 2. Splenomegaly 3. Cholecystotomy tube in place with decompressed gallbladder. CT was performed with one or more following dose reduction techniques: automated exposure control, adjustment of the mA and kv according to patient's size, or use of a iterative reconstruction technique. DICTATED BY: GREER FIORE MD DATE: 08/24/25815 ELECTRONICALLY SIGNED BY: GREER FIORE MD DATE: 08/24/25822 ASSESSMENT: Suspected Bowel Perforation/ Anastomotic Leak POA Acute cholecystitis, not POA s/p Cholecystotomy tube placement 08/02/2025 Bilious peritonitis s/p Diagnostic laparoscopy, abdominal washout, drain placement and diverting loop ileostomy creation Perisplenic and infrasplenic fluid collection with splenomegaly - suspected abscess s/p drainage with catheter placement Hyponatremia, resolved Bacterial peritonitis [ESBL Ecoli], resolved Cholelithiasis Atrophic vaginitis Hyperkalemia, resolved Iron Deficiency anemia, POA Diabetes Mellitus Type 2 POA Acute Kidney Injury POA, resolved Septic Shock POA, resolved Cirrhosis of liver POA Esophageal Varices Recent Robotic takedown of splenic flexure mobilization, robotic takedown of colovesical fistula with sigmoid colectomy and end-to-end anastomosis surgery PLAN: Bilious peritonitis status post Diagnostic laparoscopy, abdominal washout, drain placement and diverting loop ileostomy creation -Continue close monitoring of the patient -continue physical therapy -No output in CHRIS drain. Follow up with surgery regarding CHRIS drain removal. -Continue Zosyn [day 35] and fluconazole [day 35]. -Probiotics and Fibers have been added for bloating. -Continue Protonix 40mg IV BID - Continue [place] 5 mg q.4h p.r.n.,for pain management - As per surgery, continue methocarbamol and gabapentin. Perisplenic and infrasplenic fluid collection with splenomegaly * CT scan showed perisplenic and infrasplenic fluid collection measuring 6.0 x 6.1 x 8.9 cm, splenomegaly, with spleen measuring 15.2 cm * IR drained the perisplenic and intra splenic fluid with placement of drainage catheter. * A repeat CT scan still showed persistent inferior splenic fluid collection and recommended continuing the drainage catheter and daily flushes * Cultures resulted in now growth * Continue Zosyn and fluconazole Bacterial Peritonitis, resolved * Post Surgical patient with Bacterial peritonitis positive for ESBL * Culture and sensitivity shows susceptibility to Zosyn, Gentamicin and Meropenem. * Likely secondary to post-operative intraabdominal infection with risk of ongoing contamination. * Currently patient is on Zosyn (Day 35) Cholelithiasis * Patient complained of upper abdominal pain * Ultrasound abdomen showed: Cirrhotic-appearing liver * Cholelithiasis and biliary sludge with gallbladder distension and Small volume ascites. * Hida scan showed acute cholecystitis. * IR did a Fluoroscopy and ultrasound-guided placement of cholecystotomy tube and cholecystogram on 08/02/2025. 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 Patient was found to have normally positioned tube with some stones for which the tube was flushed.. Small Bowel Obstruction (Resolved) * Abdominal Xray showed: Dilated small bowel loops are seen in mid abdomen * Pain management(avoid excess opioids if ileus is suspected) * Monitor for resolution vs progression of Ileus/obstruction. 07/29/25 Bowel Perforation, Dehiscence of the anastomosis - Patient had repair of colovesicular fistula with sigmoid colon resection and anastomosis on 07/09/25. - CT abdominal pelvis w/contrast done on 07/20/2025 showed Free air in the upper abdomen is seen, suggesting perforated bowel vs post surgical changes. No obstruction. - underwent Diagnostic laparoscopy, abdominal washout, drain placement and diverting loop ileostomy creation for biliary peritonitis Iron Deficiency anemia * Hemoglobin today is 9.6. * Anemia panel has been ordered. Results showed Iron 24L, %sat 16.3 and TIBC 147L. 07/30/25 * Received 2 doses of Iron sucrose (venofer) so far Recommend trending Hgb and transfuse as needed to goal Hgb >7 Acute Kidney Injury, Resolved * Creatinine improved * Initial FeNA is 0.1 %, probably secondary to dehydration and NSAIDs overuse. * initial Urine sodium is < 13 and urine creatinine is 132.17. * Avoid nephrotoxic agents, eg. NSAIDS. * Weight patient daily. * Monitor intake and output. Supportive measures - Multimodal pain management - Duloxetine started. -Maintain IV fluids, correct electrolytes -Serial abdominal exams -Circus Rider on avoidance of NSAIDS and other related triggers. -Monitor Vitals and perform morning labs regularly Continue GI prophylaxis with Pantop Continue DVT prophylaxis with SCDs, we will avoid heparin due to history of allergies to porcine ATTESTATION BY PHYSICIAN I have seen and examined the patient. I reviewed the documentation, medical decision making, and treatment plan as noted by the resident provider above. I agree with the findings and plan of care. Denzel Coello IV, MD, HARSHAVARDHA MD Aug 24, 2025 09:20
--- NOTE | 2025-08-24 12:00 | NUR ---
ILEOSTOMY CHANGE PATIENT'S ILEOSTOMY BAG LEAKED AGAIN. BAG CHANGED AT THIS TIME. PATIENT TOLERATED ILEOSTOMY BAG CHANGE. Addendum: 08/24/25 at 1942 by MARIELLE MARTINES LVN LVN DAUGHTER AT BEDSIDE DURING CHANGING OF ILEOSTOMY. EDUCATED ON INSTRUCTIONS FOR CHANGE AND CARE MANAGEMENT OF ILEOSTOMY. DAUGHTER VOICED UNDERSTANDING AND STATED HAS BEEN TAUGHT ON CHANGING PROCEDURE. WILL CONTINUE TO REINFORCE ON EDUCATION FOR DISCHARGE PLANNING.
--- NOTE | 2025-08-24 12:40 | NUR ---
FLUSH LUQ ACCORDION FLUSHED WITH 10MLS OF NS ORDERED BY MD. EDUCATED DAUGHTER AT BEDSIDE ON HOW TO FLUSH DRAIN USING ASEPTIC TECHNIQUE. DAUGHTER VOICED UNDERSTANDING. WILL CONTINUE TO MONITOR AND EDUCATED ON DRAIN MANAGEMENT.
--- NOTE | 2025-08-24 13:29 | PN ---
NEPHROLOGY PROGRESS NOTE Date/Time Patient Seen: Aug 24, 2025 SUBJECTIVE: This is a 55-year-old female with a past medical history of diabetes mellitus type 2, liver cirrhosis, esophageal varices. He presented to the emergency room with chief complain of abdominal pain. CT of the abdomen showed moderate small bowel enteritis with free air in the upper abdomen, suggesting perforated bowel versus post surgical changes. No obs truction. S/p diagnostic laparoscopy, abdominal washout, drain placement and diverting loop ileostomy creation with CHRIS drain 10 Polish on 07/21 S/P cholecystotomy tube on 08/02 S/P Cholecystogram showed cholecystotomy tube in satisfactory position with multiple large gallstones seen in the gallbladder lumen on 08/09 S/P successful CT guided drainage of left infrasplenic collection on 08/09 Diet is being advanced as tolerated She was noted to have elevated BUN/creatinine We are consulted for renal failure Renal function is stable Continues with hyponatremia Cortisol and osmolality were noted She was seen in the medial floor, in no acute distress No family at the bedside REVIEW OF SYSTEMS: GENERAL: Positive for nausea NEUROLOGIC: Negative for any blurry vision, blind spots, double vision, facial asymmetry, dysphagia, dysarthria, hemiparesis, hemisensory deficits, vertigo, ataxia. HEENT: Negative for any head trauma, neck trauma, neck stiffness, photophobia, phonophobia, sinusitis, rhinitis. CARDIAC: Negative for any chest pain, dyspnea on exertion, paroxysmal nocturnal dyspnea, peripheral edema. PULMONARY: Negative for any shortness of breath, wheezing, COPD, or TB exposure. GASTROINTESTINAL: Negative for any abdominal pain, nausea, vomiting, bright red blood per rectum, melena. GENITOURINARY: Negative for any dysuria, hematuria, incontinence. INTEGUMENTARY: Negative for any rashes, cuts, insect bites. RHEUMATOLOGIC: Negative for any joint pains, photosensitive rashes, history of vasculitis or kidney problems. HEMATOLOGIC: Negative for any abnormal bruising, frequent infections or bleeding. Vital Signs (last 8hr) Date Time Temp Pulse Resp B/P (MAP) Pulse Ox O2 Delivery O2 Flow Rate FiO2 08/23/25 11:20 98.2 92 18 113/69 98 Room Air 08/23/25 08:56 98.1 88 18 107/72 97 Room Air PHYSICAL EXAM: GENERAL: Alert and oriented x 3. No acute distress. Well-nourished. EYES: EOMI. Anicteric. HENT: Moist mucous membranes. No scleral icterus. No cervical lymphadenopathy. LUNGS: Clear to auscultation bilaterally. No accessory muscle use. CARDIOVASCULAR: Regular rate and rhythm. No murmur. No JVD. ABDOMEN: Soft, non-tender and non-distended. No palpable masses. EXTREMITIES: No edema. Non-tender SKIN: No rashes or lesions. Warm. NEUROLOGIC: No focal neurological deficits. CN II-XII grossly intact, but not individually tested. PSYCHIATRIC: Cooperative. Appropriate mood and affect. Current Medications Medications (Trade) Dose Ordered Sig/Gregory Route Start Time Stop Time Status Last Admin Dose Admin Albumin Human 50 ml @ 100 mls/hr Q12H IV 08/02/25 21:30 08/05/25 09:59 DC 08/05/25 10:12 100 MLS/HR Albumin Human 50 ml @ 0 mls/hr Q12H IV 08/02/25 18:30 08/02/25 20:04 DC Albumin Human 100 ml @ 0 mls/hr ONCE IV 07/25/25 12:00 07/26/25 11:59 DC 07/25/25 13:43 100 MLS/HR Clotrimazole (Lotrimin) 1 GM BID TP 07/29/25 21:00 08/28/25 20:59 08/20/25 21:00 1 GM Cyclobenzaprine HCl (Cyclobenzaprine HCl) 5 mg TID PO 07/25/25 14:00 07/26/25 14:00 DC 07/26/25 14:19 5 MG Duloxetine HCl (CymbALTA 30 mg CAP) 30 mg BID PO 08/15/25 21:00 09/14/25 20:59 08/21/25 08:14 30 MG Fat Emulsion Intravenous 250 ml @ 42 mls/hr DAILY10 IV 08/13/25 10:00 08/19/25 10:44 DC 08/18/25 09:57 42 MLS/HR Fentanyl (DURAgesic 12 MCG/HR PATCH) 12 mcg Q72H TD 08/09/25 13:00 08/09/25 15:19 DC Fentanyl (DURAgesic 12 MCG/HR PATCH) 12 mcg Q72H TD 08/09/25 15:30 08/11/25 10:32 DC 08/09/25 15:38 12 MCG Fentanyl (DURAgesic 25 MCG/HR PATCH) 25 mcg Q72H TD 07/31/25 14:30 07/31/25 14:44 DC Fentanyl (DURAgesic 25 MCG/HR PATCH) 25 mcg Q72H TD 08/12/25 15:30 08/12/25 16:00 DC Fentanyl (DURAgesic 25 MCG/HR PATCH) 25 mcg Q72H TD 08/12/25 21:00 08/17/25 20:59 DC 08/16/25 00:02 25 MCG Fluconazole/ Sodium Chloride 100 ml @ 100 mls/hr DAILY IV 08/20/25 22:30 08/23/25 23:00 08/21/25 08:09 100 MLS/HR Fluconazole/ Sodium Chloride (DiFLUCan 200 MG/ NS 100 ML) 200 mg Q24H IVPB 07/21/25 21:00 08/20/25 20:59 DC 08/19/25 20:18 200 MG Furosemide (LASix 20MG TAB) 20 mg DAILY PO 07/25/25 11:00 08/02/25 11:53 DC 08/02/25 09:42 20 MG Gabapentin (NEURontin 100 mg CAP) 100 mg TID PO 07/29/25 14:00 08/02/25 09:21 DC 08/01/25 20:14 100 MG Gabapentin (NEURontin 100 mg CAP) 100 mg TID PO 08/11/25 21:00 09/10/25 20:59 08/21/25 13:21 100 MG Home Med (Compound Po Narcotic) HS TD 08/12/25 21:00 08/21/25 00:24 DC Insulin Human Regular (humuLIN R 100 UNIT/ML 3ML) INSULIN SLIDING SCAL... ACHS SQ 07/21/25 07:30 08/20/25 07:29 DC 08/18/25 17:31 2 UNIT Lactated Ringer's 1,000 ml @ 75 mls/hr [id number] IV 07/21/25 00:00 07/21/25 13:17 DC 07/21/25 02:57 75 MLS/HR Lactated Ringer's 1,000 ml @ 75 mls/hr [id number] IV 07/21/25 13:30 07/24/25 11:09 DC 07/24/25 09:27 75 MLS/HR Lactobacillus Rhamnosus ([facility] [employer]) 1 each DAILY20 PO 07/26/25 20:00 08/25/25 19:59 08/20/25 20:08 1 EACH Lidocaine (Lidoderm Patch 5%) 1 patch DAILY TP 07/28/25 09:00 08/27/25 08:59 08/21/25 08:17 1 PATCH Lidocaine HCl/Al Hydroxide/Mg Hydroxide/ Dicyclomine HCl 20ML OR AD ONCE PO 08/06/25 16:30 08/07/25 16:29 DC 08/06/25 16:45 20 ML Methocarbamol (methoCARBamol) 500 mg BID PO 08/11/25 16:00 09/10/25 15:59 08/21/25 08:15 500 MG Metoclopramide HCl (regLAN 10MG IV) 5 mg BID IVP 08/04/25 21:00 09/03/25 20:59 08/21/25 08:16 5 MG Metronidazole/ Sodium Chloride (flaGYL) 500 mg Q8H IV 07/21/25 14:00 07/21/25 13:40 DC Norepinephrine 250 ml @ 0 mls/hr PROTOCOL IV 07/20/25 23:30 08/03/25 08:27 DC 07/21/25 10:56 18.45 MLS/HR Ondansetron HCl (zoFRAN 4MG INJ) 4 mg Q6H IVP 08/16/25 18:00 09/15/25 17:59 08/21/25 13:20 4 MG Pantoprazole Sodium (PROTonix 40MG INJ) 40 mg BID IV 07/26/25 21:00 08/20/25 08:59 DC 08/19/25 20:16 40 MG Pantoprazole Sodium (PROTonix 40MG INJ) 40 mg BID IVP 08/05/25 21:00 08/06/25 08:39 DC 08/05/25 20:25 40 MG Pantoprazole Sodium (PROTonix 40MG INJ) 40 mg DAILY IV 07/21/25 09:00 07/26/25 09:31 DC 07/26/25 08:55 40 MG Pharmacy Profile Note (Pharmacy Communication) 1 each ONCE MISC 07/21/25 15:30 07/21/25 15:16 DC Pharmacy Profile Note (Pharmacy Communication) 1 each ONCE MISC 08/16/25 16:00 08/15/25 21:12 DC Pharmacy Profile Note (Pharmacy Communication) 1 each ONCE MISC 08/06/25 16:00 08/07/25 07:07 DC Piperacillin Sod/ Tazobactam Sod 50 ml @ 200 mls/hr ONCE STAT IVPB 07/20/25 19:15 07/20/25 19:29 DC 07/20/25 20:32 200 MLS/HR Piperacillin Sod/ Tazobactam Sod (Zosyn 3.375gm+NS 50ml) 3.375 gm Q12H IV 07/21/25 00:00 07/31/25 00:00 DC 07/30/25 23:55 3.375 GM Piperacillin Sod/ Tazobactam Sod (Zosyn 3.375gm+NS 50ml) 3.375 gm Q8H IVPB 07/31/25 11:30 08/10/25 11:29 DC 08/10/25 04:05 3.375 GM Piperacillin Sod/ Tazobactam Sod (Zosyn 3.375gm+NS 50ml) 3.375 gm Q8H IVPB 08/20/25 23:00 08/23/25 23:00 08/21/25 06:05 3.375 GM Piperacillin Sod/ Tazobactam Sod (Zosyn 3.375gm+NS 50ml) 3.375 gm Q8H IVPB 08/10/25 13:00 08/20/25 12:59 DC 08/20/25 04:32 3.375 GM Psyllium Hydrophilic Mucilloid (Metamucil) 1 tbs BID PO 07/26/25 21:00 08/25/25 20:59 08/21/25 08:16 1 TBS Simethicone (Mylicon) 80 mg Q6H6 PO 07/27/25 12:00 08/26/25 11:59 08/21/25 13:21 80 MG Sodium Bicarbonate 150 meq/Sodium Chloride 1,150 ml @ 0 mls/hr Q0M IVP 07/21/25 14:00 07/26/25 09:31 DC Sodium Chloride (NS 50ml) 50 ml AD IV 07/31/25 11:30 07/31/25 11:12 DC Sodium Chloride (NS 50ml) 50 ml AD IV 08/20/25 22:30 08/20/25 22:43 DC Sodium Chloride (Normal Saline Flush) 10 ml Q8H IJ 08/09/25 11:00 09/08/25 10:59 08/21/25 11:00 10 ML Spironolactone (Aldactone 25mg) 25 mg BID PO 07/25/25 21:00 07/26/25 09:01 DC 07/26/25 08:56 25 MG Sucralfate (Carafate) 1 gm ACHS PO 07/29/25 21:00 08/28/25 20:59 08/21/25 13:20 1 GM Thiamine HCl (Vitamin B-1) 100 mg DAILY IVP 07/22/25 21:00 08/21/25 20:59 08/21/25 08:15 100 MG Thiamine HCl 100 mg/Sodium Chloride 50 ml @ 100 mls/hr Q24H IM 07/21/25 15:30 07/21/25 16:25 DC Vancomycin HCl (Vancomycin 1g/ 250ml Kit) 1 gm ONCE STAT IV 07/20/25 21:23 07/20/25 21:26 DC 07/20/25 22:06 1 GM Vasopressin 20 units/Sodium Chloride 100 ml @ 0 mls/hr PROTOCOL IV 07/21/25 00:30 08/03/25 08:27 DC 07/21/25 00:10 9 MLS/HR LABORATORY: [ ] Hematology Labs: Test 08/24/25 05:21 08/23/25 04:40 Range/Units White Blood Count 6.5 4.8-10.8 K/uL Red Blood Count 4.02 4.00-5.50 MIL/uL Hemoglobin 12.0 12.0-16.0 g/dL Hematocrit 36.6 36-48 % Mean Corpuscular Volume 91.0 79-99 fL Mean Corpuscular Hemoglobin 29.9 27.0-33.0 pg Mean Corpuscular Hemoglobin Concent 32.8 32.0-36.0 g/dL Red Cell Distribution Width 17.2 H 11.0-15.5 % Platelet Count 226 130-400 K/uL Mean Platelet Volume 9.1 7.5-10.5 fL Nucleated Red Blood Cells 0.0 0.0-0.19 % Immature Granulocyte % (Auto) 0.9 0-1 % Neutrophils (%) (Auto) 70.6 40.0-77.0 % Lymphocytes (%) (Auto) 15.6 L 21.0-51.0 % Monocytes (%) (Auto) 9.7 3.0-13.0 % Eosinophils (%) (Auto) 2.6 0.0-8.0 % Basophils (%) (Auto) 0.6 0.0-5.0 % Neutrophils # (Auto) 4.5 1.8-7.7 K/uL Lymphocytes # (Auto) 1.0 1.0-4.8 K/uL Monocytes # (Auto) 0.6 0.1-1.0 K/uL Eosinophils # (Auto) 0.17 0.00-0.70 K/uL Basophils # (Auto) 0.04 0.00-0.20 K/uL Absolute Immature Granulocyte (auto 0.06 0-1 K/uL Chemistry Labs: Test 08/24/25 11:00 08/24/25 05:21 08/23/25 04:40 Range/Units Whole Blood Glucose 137 H 70-110 MG/DL Sodium Level 124 L 136-145 mmol/L Potassium Level 5.1 3.5-5.1 mmol/L Chloride Level 97 L 101-111 mmol/L Carbon Dioxide Level 19 L 21-32 mmol/L Blood Urea Nitrogen 17 7-18 mg/dL Creatinine 1.2 H 0.5-1.0 mg/dL Glomerular Filtration Rate Calc 53 >90 mL/min Random Glucose 122 H 70-105 mg/dL Serum Osmolality 269 L 278-305 mOsm/kg Total Calcium 10.0 8.5-10.1 mg/dL Total Bilirubin 0.8 0.2-1.0 mg/dL Aspartate Amino Transf (AST/SGOT) 48 H 10-37 U/L Alanine Aminotransferase (ALT/SGPT) 25 12-78 U/L Alkaline Phosphatase 227 H 50-136 U/L Total Protein 9.0 H 6.0-8.3 g/dL Albumin 3.1 L 3.5-5.0 g/dL Magnesium Level 1.70 L 1.80-2.40 mg/dL DIAGNOSTICS / RADIOLOGY: [place] [address] [place] [id number] IMAGING REPORT Signed PATIENT: DALLAS BUCHANAN MR#: [id number] : 1970 SEX: F AGE: 55 LOCATION: 4AH ORDER STATUS: ADM IN REPORT#: [id number] SERVICE 0641 REASON: picc line placement ORDERING PHYSICIAN: AYAKA BARR MD PROCEDURE: CXR1VW - CHEST 1VW EXAM: CR Chest, single view. CLINICAL HISTORY: PICC line placement. COMPARISON: Prior chest radiograph dated July 22, 2025 FINDINGS: Left-sided PICC line placement with tip in the region of the superior vena cava. Mild cardiomegaly. An ill-defined soft tissue in the superior mediastinum possibility of aortic arch aneurysm, is not excluded. The lungs show no infiltrate or other acute findings. No pleural effusion or pneumothorax. No acute osseous abnormality. IMPRESSION: Left-sided PICC line placement with tip in the region of the superior vena cava. Mild cardiomegaly. An ill-defined soft tissue in the superior mediastinum possibility of aortic arch aneurysm, is not excluded. May consider further evaluation with contrast-enhanced CT thorax. Compared to the prior study, there is no interval resolution of the subsegmental atelectasis in the right lower lobe, interval removal of the nasogastric tube, and interval placement of the left-sided PICC catheter. /[place] DICTATED BY: ELDON MILLER Jr., MD DATE: 08/11/25824 ELECTRONICALLY SIGNED BY: ELDON MILLER Jr., MD DATE: 08/11/25824 PATIENT: DALLAS BUCHANAN MR#: [id number] : 1970 SEX: F AGE: 55 LOCATION: 4AH ORDER 1544 STATUS: ADM IN REPORT#: [id number] SERVICE 08 REASON: Aspiration of perisplenic fluid noted on CT ORDERING PHYSICIAN: BENEDICTO OBRIEN Jr. PROCEDURE: GUID NDL - CT GUIDE NDL PLCMT IR CT GUIDE NDL PLCMT IR HISTORY: Aspiration of perisplenic fluid noted on CT infrasplenic fluid collection drainage . TECHNIQUE: Images from prior studies reviewed. Informed consent was obtained after explaining the procedure and potential complications to the patient. Time out performed. The patient was placed prone on the CT couch and images of the abdomen obtained. The left flank draped in sterile fashion. Local anesthesia was applied and under CT-fluoroscopy guidance, a 19-gauge needle introducer was advanced through the abdominal wall and into a left infrasplenic fluid collection in the left hemiabdomen. Then, over a wire the tract was dilated to accommodate a 8 Polish APDL catheter, which was left coiled within the collection. Completion images reveal no hemorrhage. Patient tolerated the procedure well and was discharged from the department in good condition. Approximately 10 cc of fluid mL of fluid sent for cultures. Conscious sedation provided by a registered nurse who monitored the patient's vital signs throughout and after the procedure. MEDICATIONS: Fentanyl 100 mcg IV and Versed 2 mg IV IMPRESSION: Successful CT guided drainage of left infrasplenic collection. DICTATED BY: GREER FIORE MD DATE: 08/10/25927 ELECTRONICALLY SIGNED BY: GREER FIORE MD DATE: 08/10/25937 PATIENT: DALLAS BUCHANAN MR#: [id number] : 1970 SEX: F AGE: 55 LOCATION: [facility] ORDER 36 STATUS: ADM IN REPORT#: [id number] SERVICE 35 REASON: epigastric pain. not tolerating meals. ORDERING PHYSICIAN: SUSAN JHAVERI MD PROCEDURE: ABD PEL W - CT ABDOMEN/PELVIS W/CONTRAST EXAM: CT Abdomen and Pelvis with IV contrast CLINICAL HISTORY: epigastric pain. not tolerating meals. TECHNIQUE: Axial computed tomography images of the abdomen and pelvis with intravenous contrast. CONTRAST: with intravenous contrast. COMPARISON: Compared with the previous CT dated 07/20 and USG dated 07/29 FINDINGS: LUNG BASES: Grossly stable atelectasis and scarring at the lung bases. LIVER: Unremarkable. GALLBLADDER AND BILE DUCTS: The gallbladder is decompressed with a cholecystostomy tube in situ. PANCREAS: Unremarkable. SPLEEN: The spleen is enlarged in size, measuring 15.2 cm. ADRENAL GLANDS: Unremarkable. KIDNEYS, URETERS, AND BLADDER: No hydronephrosis or nephrolithiasis. No ureteral calculi. The urinary bladder is unremarkable. STOMACH AND BOWEL: The ileostomy site appears unremarkable. Interval resolution of previously seen moderate small bowel enteritis. No obstruction. APPENDIX: No CT evidence for appendicitis. PERITONEUM: Near complete interval resolution of previously seen moderate ascites in the abdomen and pelvis. Collection in the perisplenic and infra-splenic region measuring 6.0 x 6.1 x 8.9 cm. Interval resolution of previously seen pneumoperitoneum. Diffuse mesenteric fat stranding, likely postoperative changes. LYMPH NODES: No lymphadenopathy. REPRODUCTIVE: Unremarkable as visualized. VASCULATURE: No aortic aneurysm. ABDOMINAL WALL AND SOFT TISSUES: Interval resolution of previously seen subcutaneous emphysema in the anterior abdominal wall and left lateral chest wall. Abdominal drain in situ with tip in the pelvis. BONES: No fracture or suspicious osseous abnormality. IMPRESSION: 1. Perisplenic and infrasplenic fluid collection measuring 6.0 x 6.1 x 8.9 cm. 2. Splenomegaly, with spleen measuring 15.2 cm. 3. Cholecystostomy tube in situ with decompressed gallbladder. 4. Abdominal drain in situ with tip in the pelvis. 5. No acute findings in the remainder of the abdomen and pelvis. /[place] DICTATED BY: ELDON MILLER Jr., MD DATE: 08/04/251636 ELECTRONICALLY SIGNED BY: ELDON MILLER Jr., MD DATE: 08/04/251636 PATIENT: DALLAS BUCHANAN MR#: [id number] : 1970 SEX: F AGE: 55 LOCATION: [facility] ORDER 152 STATUS: ADM IN REPORT#: [id number] SERVICE 152 REASON: cholecystitis ORDERING PHYSICIAN: BENEDICTO OBRIEN Jr. PROCEDURE: HIDA PHARM - NM HIDA/HEPATOBILI W/ PHARMACO EXAM: HIDA scan. INDICATION: Severe RUQ Pain to rule out cholecystitis. REFERENCE EXAMINATION: USG July 29, 2025. TECHNIQUE: Sequential images of the abdomen were obtained in the anterior projection after IV administration of 6.0 mCi of Tc99m Mebrofenin. FINDINGS: Tracer activity throughout the liver is homogeneous without focal defects. There is prompt excretion of the pharmaceutical into the bile ducts and into the small bowel, without evidence of obstruction. There is no visualization of the gallbladder at the conclusion of the examination. IMPRESSION: Scintigraphic findings are compatible with acute cholecystitis. /[place] DICTATED BY: ELDON MILLER Jr., MD DATE: 08/01/25 1011 ELECTRONICALLY SIGNED BY: ELDON MILLER Jr., MD DATE: 08/01/25 1011 PATIENT: DALLAS BUCHANAN MR#: [id number] : 1970 SEX: F AGE: 55 LOCATION: 4AH ORDER 10 STATUS: ADM IN REPORT#: [id number] SERVICE 09 REASON: ABD PAIN ORDERING PHYSICIAN: NIKKI MUNOZ NP PROCEDURE: ABD 1VW - ABD 1VW EXAM: CR Abdomen, 1 view. CLINICAL HISTORY: Pain. COMPARISON: None provided. FINDINGS: Dilated small bowel loops are seen in mid abdomen. There is a density in the pelvis which may represent a send drainage catheter. No free air is evident. No abnormal calcification. No aggressive appearing osseous lesion. IMPRESSION: Dilated small bowel loops are seen in mid abdomen. Density in the pelvis which may represent a send drainage catheter. /[place] DICTATED BY: TOBI LEAHY MD DATE: 07/29/25 103 ELECTRONICALLY SIGNED BY: TOBI LEAHY MD DATE: 07/29/25 103 PATIENT: DALLAS BUCHANAN MR#: [id number] : 1970 SEX: F AGE: 55 LOCATION: 4AH ORDER 1519 STATUS: ADM IN REPORT#: [id number] SERVICE 1516 REASON: Liver cirrhosis ORDERING PHYSICIAN: LISET DOUGLAS MD PROCEDURE: ABDOMEN - US ABDOMINAL COMPLETE EXAM: US Abdomen complete CLINICAL HISTORY: Liver cirrhosis TECHNIQUE: Real-time ultrasound of the abdomen (complete) with image documentation. COMPARISON: None provided. FINDINGS: LIVER: Liver measures 12.3 cm with a heterogeneous coarse echotexture. GALLBLADDER: Gallbladder contains stones and sludge. Gallbladder is distended. COMMON BILE DUCT: No dilation. PANCREAS: Pancreas not well-visualized due to overlying bowel gas KIDNEYS: Normal renal contours. No renal mass or calculus. No hydronephrosis. SPLEEN: Normal in size and echogenicity. No mass identified. AORTA: No aneurysm. IVC: Unremarkable as visualized. MISCELLANEOUS: Small amount of abdominal ascites. IMPRESSION: 1. Cirrhotic-appearing liver. 2. Cholelithiasis and biliary sludge with gallbladder distension. 3. Small volume ascites. /[place] DICTATED BY: CYNTHIA JULIAN MD DATE: 07/29/25 105 ELECTRONICALLY SIGNED BY: CYNTHIA JULIAN MD DATE: 07/29/251055 PATIENT: DALLAS BUCHANAN MR#: [id number] : 1970 SEX: F AGE: 55 LOCATION: 2BH ORDER 1108 STATUS: ADM IN REPORT#: [id number] SERVICE 1106 REASON: sob ORDERING PHYSICIAN: PREET BOSTON MD PROCEDURE: CXR1VW - CHEST 1VW CHEST 1VW REASON: sob COMPARISON: Study from 07/21/2025 is available. FINDINGS: Single view of the chest was obtained. Lungs are clear. Heart size is normal. There is no pulmonary vascular congestion. There is a right-sided PIC catheter with tip in superior vena cava. There is a nasogastric tube with the tip in the fundus of the stomach. Mediastinum and bony thorax appear unremarkable. IMPRESSION: 1. No acute cardiopulmonary process 2. The support lines are in satisfactory position.. DICTATED BY: GREER FIORE MD DATE: 07/22/251349 ELECTRONICALLY SIGNED BY: GREER FIORE MD DATE: 07/22/251353 PATIENT: DALLAS BUCHANAN MR#: [id number] : 1970 SEX: F AGE: 55 LOCATION: 2BH ORDER STATUS: ADM IN REPORT#: [id number] SERVICE REASON: PICC LINE ORDERING PHYSICIAN: HEATHER LEACH APRN PROCEDURE: CXR1VW - CHEST 1VW EXAM: CR Chest, single view. CLINICAL HISTORY: PICC line COMPARISON: Prior same day chest radiograph. FINDINGS: Right-sided PICC catheter with tip in the cavoatrial junction. Subsegmental atelectasis in the right lower lobe. No evidence of pleural effusion or pneumothorax. The cardiomediastinal silhouette is within normal limits. No acute osseous abnormality. IMPRESSION: Right-sided PICC catheter with tip in the cavoatrial junction. Subsegmental atelectasis in the right lower lobe. No evidence of pleural effusion or pneumothorax. Compared to the prior study, there is interval placement of the right-sided PICC line and interval resolution of the subsegmental atelectasis in the left lower lobe. /[place] DICTATED BY: ELDON MILLER Jr., MD DATE: 07/21/25816 ELECTRONICALLY SIGNED BY: ELDON MILLER Jr., MD DATE: 07/21/25816 PATIENT: DALLAS BUCHANAN MR#: [id number] : 1970 SEX: F AGE: 55 LOCATION: [facility] ORDER 14 STATUS: REG ER [facility] REPORT#: [id number] SERVICE 12 REASON: CHEST PAIN/COUGH ORDERING PHYSICIAN: ALHAJI SHINE NP PROCEDURE: CXR1VW - CHEST 1VW EXAM: XR Chest, 1 View. CLINICAL HISTORY: 55 year old female with chest pain and cough. COMPARISON: None provided. FINDINGS: LUNGS: The lungs demonstrate evidence of atelectasis. PLEURAL SPACES: A small right pleural effusion is present. HEART: The heart size is normal. BONES: No acute osseous abnormality. IMPRESSION: 1. Small right pleural effusion and right lung base atelectasis. /[place] DICTATED BY: EDWIGE LEDESMA MD DATE: 07/20/252046 ELECTRONICALLY SIGNED BY: EDWIGE LEDESMA MD DATE: 07/20/252046 PATIENT: DALLAS BUCHANAN MR#: [id number] : 1970 SEX: F AGE: 55 LOCATION: [facility] ORDER 14 STATUS: [facility] REPORT#: [id number] SERVICE 12 REASON: Abdominal Pain ORDERING PHYSICIAN: ALHAJI SHINE NP PROCEDURE: ABD PEL W - CT ABDOMEN/PELVIS W/CONTRAST ADDENDUM REPORT ADDENDUM: Results were shared by telephone at 23:23 pm on 07-20-2025 and acknowledged by Pt nurse Ms. SHIN BOYIKN. /[place] EXAM: CT Abdomen and Pelvis with Intravenous Contrast CLINICAL HISTORY: 55-year-old female with abdominal pain. TECHNIQUE: Axial computed tomography images of the abdomen and pelvis with intravenous contrast. Dose reduction technique was used including one or more of the following: automated exposure control, adjustment of mA and kV according to patient size, and/or iterative reconstruction. CONTRAST: Omnipaque 350, 75 mL COMPARISON: None provided. FINDINGS: LUNG BASES: Atelectasis and scarring at the lung bases. LIVER: Unremarkable. GALLBLADDER AND BILE DUCTS: Tiny gallstone seen. PANCREAS: Unremarkable. SPLEEN: Unremarkable. ADRENAL GLANDS: Unremarkable. KIDNEYS, URETERS, AND BLADDER: Dueñas catheter seen in the bladder lumen. No hydronephrosis or nephrolithiasis. No ureteral calculi. STOMACH AND BOWEL: Edema or loops of small bowel suggesting moderate small bowel enteritis. Free air in the upper abdomen is seen, suggesting perforated bowel. No obstruction. APPENDIX: No CT evidence for appendicitis. PERITONEUM: Moderate ascites in the abdomen and pelvis. No free air under the diaphragm. LYMPH NODES: No lymphadenopathy. REPRODUCTIVE: Unremarkable as visualized. VASCULATURE: No aortic aneurysm. ABDOMINAL WALL AND SOFT TISSUES: There is air in the subcutaneous soft tissue seen anteriorly, suggesting recent postsurgical changes; please correlate with surgical history. BONES: No fracture or suspicious osseous abnormality. IMPRESSION: 1. Moderate small bowel enteritis with free air in the upper abdomen, suggesting perforated bowel versus post surgical changes. No obstruction. 2. Moderate ascites in the abdomen and pelvis. 3. Air in the subcutaneous soft tissue anteriorly, suggesting recent postsurgical changes; please correlate with surgical history. /[place] DICTATED BY: EDWIGE LEDESMA MD DATE: 07/20/25 8133 ELECTRONICALLY SIGNED BY: DATE: EXAM: CT Abdomen and Pelvis with Intravenous Contrast CLINICAL HISTORY: 55-year-old female with abdominal pain. TECHNIQUE: Axial computed tomography images of the abdomen and pelvis with intravenous contrast. Dose reduction technique was used including one or more of the following: automated exposure control, adjustment of mA and kV according to patient size, and/or iterative reconstruction. CONTRAST: Omnipaque 350, 75 mL COMPARISON: None provided. FINDINGS: LUNG BASES: Atelectasis and scarring at the lung bases. LIVER: Unremarkable. GALLBLADDER AND BILE DUCTS: Tiny gallstone seen. PANCREAS: Unremarkable. SPLEEN: Unremarkable. ADRENAL GLANDS: Unremarkable. KIDNEYS, URETERS, AND BLADDER: Dueñas catheter seen in the bladder lumen. No hydronephrosis or nephrolithiasis. No ureteral calculi. STOMACH AND BOWEL: Edema or loops of small bowel suggesting moderate small bowel enteritis. Free air in the upper abdomen is seen, suggesting perforated bowel. No obstruction. APPENDIX: No CT evidence for appendicitis. PERITONEUM: Moderate ascites in the abdomen and pelvis. No free air under the diaphragm. LYMPH NODES: No lymphadenopathy. REPRODUCTIVE: Unremarkable as visualized. VASCULATURE: No aortic aneurysm. ABDOMINAL WALL AND SOFT TISSUES: There is air in the subcutaneous soft tissue seen anteriorly, suggesting recent postsurgical changes; please correlate with surgical history. BONES: No fracture or suspicious osseous abnormality. IMPRESSION: 1. Moderate small bowel enteritis with free air in the upper abdomen, suggesting perforated bowel versus post surgical changes. No obstruction. 2. Moderate ascites in the abdomen and pelvis. 3. Air in the subcutaneous soft tissue anteriorly, suggesting recent postsurgical changes; please correlate with surgical history. /[place] DICTATED BY: EDWIGE LEDESMA MD DATE: 07/20/252317 ELECTRONICALLY SIGNED BY: EDWIGE LEDESMA MD DATE: 07/20/252317 ASSESSMENT: Acute kidney injury Hyponatremia Bacterial peritonitis Perisplenic and infrasplenic fluid collection with splenomegaly Cholelithiasis 2 mm perforation of the colonic anastomosis Anastomosis leak Bilious peritonitis S/p Diagnostic laparoscopy, abdominal washout, drain placement and diverting loop ileostomy creation Atrophic vaginitis Anemia Diabetes Mellitus Type 2 Septic Shock Cirrhosis of liver Oesophageal Varices PLAN: Labs, diagnostic, radiologic exams reviewed and interpreted by myself and supervising physician. We have reviewed external records in detail Order sodium chloride tablets1 g p.o. b.i.d. BiPAP as necessary, for respiratory distress Monitor blood pressure adjust medication doses as needed Avoid hypotensive episodes May use Dilaudid 0.5 mg IV every 6 hours as needed for severe pain Monitor blood sugars Strict intake, output, and daily weight should be monitored Please renally adjust medications Avoid nephrotoxic and nonsteroidal drugs Avoid contrast if possible Will continue to monitor renal function, anemia, electrolytes Treatment plan discussed with patient Questions were answered We have discussed with the other team physicians in detail about the care plan We will continue to monitor the patient closely ATTESTATION BY PHYSICIAN I have seen and examined the patient. I reviewed the documentation, medical decision making, and treatment plan as noted by the mid-level provider above. I agree with the findings and plan of care. CIELO PORTILLO MD, [facility] Aug 24, 2025 13:29
--- NOTE | 2025-08-24 13:30 | NUR ---
ROUNDS MATTHIAS HI WITH DR JHAVERI ROUNDED AT BEDSIDE. SPOKE WITH PATIENT AND DAUGHTER REGARDING DISCHARGE PLAN. PER BENEDICTO, PATIENT TO BE DISCHARGED WITH DRAINS IN PLACE AND WILL FOLLOW UP OUTPATIENT FOR ANY FURTHER INTERVENTIONS. BOTH PATIENT AND DAUGHTER VOICED UNDERSTANDING. PRIMARY NOTIFIED OF RECOMMENDATIONS. NO FURTHER ORDERS GIVEN.
[2025-08-24] MEDS: SODIUM CHLORIDE 1,000 MG TAB PO SCH (13:50)
--- NOTE | 2025-08-24 13:57 | PN ---
This is a 55-year-old female status post laparoscopic washout and loop ileostomy Interval history: This 55-year-old female seen in her room resting Attempt to see patient made yesterday but patient undergoing CT evaluation for potential removal of percutaneous drain to left upper quadrant Drain was left in place due to continued fluid collection IR reporting that drain was locked in unable to drain appropriately which they have corrected Nursing flushing at this time Cholecystostomy tube also confirmed in correct location Patient tolerating diet Labs and vitals stable No other acute events reported at this time Physical exam General: Awake alert and oriented Heart: Regular rate and rhythm} Lungs: Clear to auscultation no distress Abdomen: [Soft, nontender, nondistended cholecystostomy tube in place percutaneous drain in place Assessment : This is a 55-year-old female status post laparoscopic washout and loop ileostomy Plan: From surgical standpoint once family has been instructed on appropriate and drain care And appropriate antibiotics on board patient is cleared for discharge Patient to follow up in 1-[address] Gann is office we will we will reschedule imaging for potential percutaneous drainage removal Continue with diet as tolerated Continue with ID recommendations for antibiotics Nursing report any further acute events Surgical case has been discussed with my supervising physician in the above plan was formulated and agreed upon We appreciate the hospitalist team for us to participate in patient's care. Greater than 45 minutes of time spent patient, reviewing chart, working on documentation Vitals/Labs Vital Signs Date Time Temp Pulse Resp B/P (MAP) Pulse Ox O2 Delivery O2 Flow Rate FiO2 08/24/25 11:24 98.1 92 16 112/74 98 Room Air 08/23/25 20:00 0 21 Laboratory Tests 08/24/25 05:21 Medications Current Medications Sodium Chloride 1,000 ml @ 0 mls/hr ONCE ONCE IV; Start 07/20/25 at 18:30; Stop 07/20/25 at 18:31; Status DC Piperacillin Sod/ Tazobactam Sod 50 ml @ 200 mls/hr ONCE STAT IVPB Last administered on 07/20/25at 20:32; Start 07/20/25 at 19:15; Stop 07/20/25 at 19:29; Status DC Sodium Chloride 2,109 ml @ 703 mls/hr ONCE ONCE IV Last administered on 07/20/25at 20:28; Start 07/20/25 at 19:30; Stop 07/20/25 at 22:29; Status DC Iohexol 75 ml STK-MED ONCE IV; Start 07/20/25 at 20:31; Stop 07/20/25 at 20:31; Status DC Vancomycin HCl 1 gm ONCE STAT IV Last administered on 07/20/25at 22:06; Start 07/20/25 at 21:23; Stop 07/20/25 at 21:26; Status DC Morphine Sulfate 4 mg ONCE ONCE IVP Last administered on 07/20/25at 23:15; Start 07/20/25 at 23:30; Stop 07/20/25 at 23:31; Status DC Ondansetron HCl 4 mg ONCE ONCE IVP Last administered on 07/20/25at 23:14; Start 07/20/25 at 23:30; Stop 07/20/25 at 23:31; Status DC Norepinephrine 250 ml @ 0 mls/hr PROTOCOL IV Last administered on 07/21/25at 10:56; Start 07/20/25 at 23:30; Stop 08/03/25 at 08:27; Status DC Piperacillin Sod/ Tazobactam Sod 3.375 gm Q12H IV Last administered on 07/30/25at 23:55; Start 07/21/25 at 00:00; Stop 07/31/25 at 00:00; Status DC Acetaminophen 650 mg Q6H PRN RC; Start 07/21/25 at 00:00; Stop 07/27/25 at 16:22; Status DC Pantoprazole Sodium 40 mg DAILY IV Last administered on 07/26/25at 08:55; Start 07/21/25 at 09:00; Stop 07/26/25 at 09:31; Status DC Ondansetron HCl 4 mg Q6H PRN IV; Start 07/21/25 at 00:00; Stop 07/21/25 at 13:18; Status DC Morphine Sulfate 2 mg Q4H PRN IVP Last administered on 07/21/25at 04:46; Start 07/21/25 at 00:30; Stop 07/21/25 at 13:18; Status DC Lactated Ringer's 1,000 ml @ 75 mls/hr [id number] IV Last administered on 07/21/25at 02:57; Start 07/21/25 at 00:00; Stop 07/21/25 at 13:17; Status DC Insulin Human Regular INSULIN SLIDING SCAL... ACHS SQ Last administered on 08/18/25at 17:31; Start 07/21/25 at 07:30; Stop 08/20/25 at 07:29; Status DC Vasopressin 20 units/Sodium Chloride 100 ml @ 0 mls/hr PROTOCOL IV Last administered on 07/21/25at 00:10; Start 07/21/25 at 00:30; Stop 08/03/25 at 08:27; Status DC Vasopressin 20 units STK-MED ONCE .ROUTE; Start 07/21/25 at 00:10; Stop 07/21/25 at 00:11; Status DC Magnesium Sulfate 50 ml @ 0 mls/hr PROTOCOL PRN IV Last administered on 08/01/25at 06:05; Start 07/21/25 at 07:00; Stop 08/20/25 at 06:59; Status DC Acetaminophen 100 ml @ As Directed STK-MED ONCE .ROUTE; Start 07/21/25 at 09:42; Stop 07/21/25 at 09:42; Status DC Famotidine 20 mg STK-MED ONCE IV; Start 07/21/25 at 09:42; Stop 07/21/25 at 09:42; Status DC Albumin Human 500 ml @ As Directed STK-MED ONCE IV; Start 07/21/25 at 09:45; Stop 07/21/25 at 09:45; Status DC Phenylephrine HCl 10 mg STK-MED ONCE IV; Start 07/21/25 at 09:48; Stop 07/21/25 at 09:48; Status DC Dexamethasone Sodium Phosphate 10 mg STK-MED ONCE .ROUTE; Start 07/21/25 at 09:52; Stop 07/21/25 at 09:52; Status DC Ondansetron HCl 4 mg STK-MED ONCE .ROUTE; Start 07/21/25 at 09:52; Stop 07/21/25 at 09:52; Status DC Lidocaine HCl 100 mg STK-MED ONCE .ROUTE; Start 07/21/25 at 09:52; Stop 07/21/25 at 09:52; Status DC Succinylcholine Chloride 200 mg STK-MED ONCE .ROUTE; Start 07/21/25 at 09:53; Stop 07/21/25 at 09:53; Status DC Glycopyrrolate 1 mg STK-MED ONCE .ROUTE; Start 07/21/25 at 09:53; Stop 07/21/25 at 09:53; Status DC Fentanyl Citrate 100 mcg STK-MED ONCE .ROUTE; Start 07/21/25 at 09:54; Stop 07/21/25 at 09:54; Status DC Propofol 200 mg STK-MED ONCE IV; Start 07/21/25 at 09:54; Stop 07/21/25 at 09:54; Status DC Neostigmine Methylsulfate 10 mg STK-MED ONCE IV; Start 07/21/25 at 09:54; Stop 07/21/25 at 09:54; Status DC Rocuronium [place] 50 mg STK-MED ONCE .ROUTE; Start 07/21/25 at 09:54; Stop 07/21/25 at 09:54; Status DC Ketamine HCl 50 mg STK-MED ONCE .ROUTE; Start 07/21/25 at 09:55; Stop 07/21/25 at 09:56; Status DC Epinephrine HCl 1 mg STK-MED ONCE .ROUTE; Start 07/21/25 at 10:03; Stop 07/21/25 at 10:03; Status DC Midazolam HCl 2 mg STK-MED ONCE .ROUTE; Start 07/21/25 at 10:05; Stop 07/21/25 at 10:05; Status DC Indocyanine Green 25 mg STK-MED ONCE IJ; Start 07/21/25 at 10:49; Stop 07/21/25 at 10:49; Status DC Ephedrine Sulfate 50 mg STK-MED ONCE .ROUTE; Start 07/21/25 at 11:17; Stop 07/21/25 at 11:17; Status DC Bupivacaine HCl 5 mg STK-MED ONCE .ROUTE Last administered on 07/21/25at 12:14; Start 07/21/25 at 11:49; Stop 07/21/25 at 11:49; Status DC Sodium Bicarbonate 200 ml @ As Directed STK-MED ONCE .ROUTE; Start 07/21/25 at 12:19; Stop 07/21/25 at 12:19; Status DC Fentanyl Citrate 100 mcg STK-MED ONCE .ROUTE; Start 07/21/25 at 12:23; Stop 07/21/25 at 12:23; Status DC Phytonadione 10 mg STK-MED ONCE .ROUTE; Start 07/21/25 at 13:05; Stop 07/21/25 at 13:05; Status DC Lactated Ringer's 1,000 ml @ 75 mls/hr [id number] IV Last administered on 07/24/25at 09:27; Start 07/21/25 at 13:30; Stop 07/24/25 at 11:09; Status DC Morphine Sulfate 4 mg Q3H PRN IV Last administered on 07/26/25at 10:51; Start 07/21/25 at 13:30; Stop 07/26/25 at 16:29; Status DC Ondansetron HCl 4 mg Q4H PRN IVP Last administered on 08/16/25at 10:23; Start 07/21/25 at 13:30; Stop 08/16/25 at 17:50; Status DC Fentanyl Citrate 100 mcg STK-MED ONCE .ROUTE; Start 07/21/25 at 13:26; Stop 07/21/25 at 13:26; Status DC Sodium Bicarbonate 150 meq/Sodium Chloride 1,150 ml @ 0 mls/hr Q0M IVP; Start 07/21/25 at 14:00; Stop 07/26/25 at 09:31; Status DC Sodium Bicarbonate 100 meq ONCE ONCE IV; Start 07/21/25 at 14:00; Stop 07/21/25 at 14:23; Status DC Metronidazole/ Sodium Chloride 500 mg Q8H IV; Start 07/21/25 at 14:00; Stop 07/21/25 at 13:40; Status DC Fluconazole/ Sodium Chloride 200 mg Q24H IVPB Last administered on 08/19/25at 20:18; Start 07/21/25 at 21:00; Stop 08/20/25 at 20:59; Status DC Pharmacy Profile Note 1 each ONCE MISC; Start 07/21/25 at 15:30; Stop 07/21/25 at 15:16; Status DC Thiamine HCl 100 mg/Sodium Chloride 50 ml @ 100 mls/hr Q24H IM; Start 07/21/25 at 15:30; Stop 07/21/25 at 16:25; Status DC Sodium Bicarbonate 100 meq ONCE ONCE IV Last administered on 07/21/25at 16:42; Start 07/21/25 at 16:30; Stop 07/21/25 at 16:31; Status DC Thiamine HCl 100 mg DAILY IVP Last administered on 08/21/25at 08:15; Start 07/22/25 at 21:00; Stop 08/21/25 at 20:59; Status DC Diatrizoate Meglum/ Diatrizoate Sod 30 ml STK-MED ONCE .ROUTE; Start 07/23/25 at 15:13; Stop 07/23/25 at 15:13; Status DC Potassium Chloride 100 ml @ 100 mls/hr AD PRN IV Last administered on 07/30/25at 06:23; Start 07/24/25 at 08:30; Stop 08/23/25 at 08:29; Status DC Potassium Chloride 20 meq AD PRN PO Last administered on 07/31/25at 08:15; Start 07/24/25 at 08:30; Stop 08/23/25 at 08:29; Status DC Potassium Chloride 20 meq AD PRN PO Last administered on 07/27/25at 20:33; Start 07/24/25 at 08:30; Stop 08/23/25 at 08:29; Status DC Hydromorphone HCl 0.5 mg Q4H PRN IVP Last administered on 07/29/25at 08:22; Start 07/24/25 at 10:00; Stop 07/29/25 at 09:59; Status DC Spironolactone 25 mg BID PO Last administered on 07/26/25at 08:56; Start 07/25/25 at 21:00; Stop 07/26/25 at 09:01; Status DC Albumin Human 100 ml @ 0 mls/hr ONCE ONCE IV Last administered on 07/25/25at 17:05; Start 07/25/25 at 10:30; Stop 07/25/25 at 10:31; Status DC Albumin Human 100 ml @ 0 mls/hr ONCE IV Last administered on 07/25/25at 13:43; Start 07/25/25 at 12:00; Stop 07/26/25 at 11:59; Status DC Cyclobenzaprine HCl 5 mg TID PO Last administered on 07/26/25at 14:19; Start 07/25/25 at 14:00; Stop 07/26/25 at 14:00; Status DC Furosemide 20 mg DAILY PO Last administered on 08/02/25at 09:42; Start 07/25/25 at 11:00; Stop 08/02/25 at 11:53; Status DC Pantoprazole Sodium 40 mg BID IV Last administered on 08/19/25at 20:16; Start 07/26/25 at 21:00; Stop 08/20/25 at 08:59; Status DC Psyllium Hydrophilic Mucilloid 1 tbs BID PO Last administered on 08/24/25at 09:09; Start 07/26/25 at 21:00; Stop 08/25/25 at 20:59 Lactobacillus Rhamnosus 1 each DAILY20 PO Last administered on 08/23/25at 20:47; Start 07/26/25 at 20:00; Stop 08/25/25 at 19:59 Iron Sucrose 200 mg ONCE ONCE IV Last administered on 07/26/25at 14:19; Start 07/26/25 at 14:00; Stop 07/26/25 at 14:01; Status DC Lidocaine 1 patch DAILY TP Last administered on 08/21/25at 08:17; Start 07/28/25 at 09:00; Stop 08/27/25 at 08:59 Simethicone 80 mg Q6H6 PO Last administered on 08/24/25at 13:51; Start 07/27/25 at 12:00; Stop 08/26/25 at 11:59 Acetaminophen 500 mg Q6H6 PRN PO; Start 07/27/25 at 16:30; Stop 08/07/25 at 12:15; Status DC Lidocaine 1 patch ONCE ONCE TP Last administered on 07/27/25at 19:25; Start 07/27/25 at 19:30; Stop 07/27/25 at 19:31; Status DC Albumin Human 50 ml @ 0 mls/hr AD ONCE IV Last administered on 07/28/25at 17:44; Start 07/28/25 at 15:30; Stop 07/28/25 at 15:31; Status DC Albumin Human 100 ml @ 0 mls/hr AD ONCE IV Last administered on 07/29/25at 14:26; Start 07/29/25 at 12:30; Stop 07/29/25 at 12:31; Status DC Hydromorphone HCl 0.5 mg Q4H PRN IVP Last administered on 08/03/25at 13:09; Start 07/29/25 at 13:30; Stop 08/03/25 at 13:29; Status DC Gabapentin 100 mg TID PO Last administered on 08/01/25at 20:14; Start 07/29/25 at 14:00; Stop 08/02/25 at 09:21; Status DC Clotrimazole 1 GM BID TP Last administered on 08/24/25at 09:10; Start 07/29/25 at 21:00; Stop 08/28/25 at 20:59 Sucralfate 1 gm ACHS PO Last administered on 08/24/25at 13:51; Start 07/29/25 at 21:00; Stop 08/28/25 at 20:59 Piperacillin Sod/ Tazobactam Sod 3.375 gm Q8H IVPB Last administered on 08/10/25at 04:05; Start 07/31/25 at 11:30; Stop 08/10/25 at 11:29; Status DC Sodium Chloride 50 ml AD IV; Start 07/31/25 at 11:30; Stop 07/31/25 at 11:12; Status DC Iron Sucrose 300 mg/Sodium Chloride 250 ml @ 83 mls/hr ONCE ONCE IV Last administered on 07/31/25at 13:36; Start 07/31/25 at 12:00; Stop 07/31/25 at 15:00; Status DC Fentanyl 25 mcg Q72H TD; Start 07/31/25 at 14:30; Stop 07/31/25 at 14:44; Status DC Acetaminophen/ Hydrocodone Bitart 1 tab Q4H PRN PO Last administered on 08/05/25at 14:57; Start 07/31/25 at 16:30; Stop 08/05/25 at 16:29; Status DC Chromium/Copper/ Manganese/Zinc 3 ml/Multivitamins/ Minerals 10 ml/ Amino Acids/ Electrolytes/ Dextrose 2,000 ml @ 80 mls/hr ONCE ONCE IV Last administered on 08/01/25at 20:25; Start 08/01/25 at 20:00; Stop 08/02/25 at 20:59; Status DC Albumin Human 100 ml @ 0 mls/hr AD ONCE IV Last administered on 08/02/25at 09:41; Start 08/02/25 at 09:30; Stop 08/02/25 at 09:33; Status DC Lidocaine HCl 20 ml STK-MED ONCE .ROUTE; Start 08/02/25 at 11:24; Stop 08/02/25 at 11:24; Status DC Iohexol 50 ml STK-MED ONCE IV; Start 08/02/25 at 11:24; Stop 08/02/25 at 11:25; Status DC Estrogens Conjugated 1 appl ONCE ONCE VG; Start 08/02/25 at 12:00; Stop 08/02/25 at 12:01; Status DC Fentanyl Citrate 100 mcg STK-MED ONCE .ROUTE; Start 08/02/25 at 11:53; Stop 08/02/25 at 11:53; Status DC Midazolam HCl 2 mg STK-MED ONCE .ROUTE; Start 08/02/25 at 11:54; Stop 08/02/25 at 11:54; Status DC Midazolam HCl 2 mg STK-MED ONCE .ROUTE; Start 08/02/25 at 12:15; Stop 08/02/25 at 12:16; Status DC Multivitamins/ Minerals 10 ml/ Chromium/Copper/ Manganese/Zinc 3 ml/Amino Acids/ Electrolytes/ Dextrose 2,000 ml @ 80 mls/hr ONCE ONCE IV Last administered on 08/02/25at 21:08; Start 08/02/25 at 20:00; Stop 08/03/25 at 18:39; Status DC Estrogens Conjugated 1 appl ONCE ONCE VG Last administered on 08/02/25at 18:47; Start 08/02/25 at 18:30; Stop 08/02/25 at 18:31; Status DC Albumin Human 50 ml @ 0 mls/hr Q12H IV; Start 08/02/25 at 18:30; Stop 08/02/25 at 20:04; Status DC Albumin Human 50 ml @ 100 mls/hr Q12H IV Last administered on 08/05/25at 10:12; Start 08/02/25 at 21:30; Stop 08/05/25 at 09:59; Status DC Hydromorphone HCl 0.5 mg Q4H PRN IVP Last administered on 08/07/25at 05:09; Start 08/03/25 at 18:00; Stop 08/07/25 at 10:03; Status DC Chromium/Copper/ Manganese/Zinc 3 ml/Multivitamins/ Minerals 10 ml/ Amino Acids/ Electrolytes/ Dextrose 2,000 ml @ 80 mls/hr ONCE ONCE IV Last administered on 08/03/25at 21:51; Start 08/03/25 at 20:00; Stop 08/04/25 at 12:47; Status DC Chromium/Copper/ Manganese/Zinc 3 ml/Multivitamins/ Minerals 10 ml/ Amino Acids/ Electrolytes/ Dextrose 2,000 ml @ 80 mls/hr ONCE ONCE IV Last administered on 08/04/25at 21:54; Start 08/04/25 at 21:00; Stop 08/05/25 at 21:59; Status DC Metoclopramide HCl 5 mg BID IVP Last administered on 08/24/25at 09:09; Start 08/04/25 at 21:00; Stop 09/03/25 at 20:59 Iohexol 75 ml STK-MED ONCE IV; Start 08/04/25 at 14:27; Stop 08/04/25 at 14:26; Status DC Propofol 200 mg STK-MED ONCE IV; Start 08/05/25 at 12:54; Stop 08/05/25 at 12:54; Status DC Lidocaine HCl 100 mg STK-MED ONCE .ROUTE; Start 08/05/25 at 12:54; Stop 08/05/25 at 12:55; Status DC Pantoprazole Sodium 40 mg BID IVP Last administered on 08/05/25at 20:25; Start 08/05/25 at 21:00; Stop 08/06/25 at 08:39; Status DC Multivitamins/ Minerals 10 ml/ Amino Acids/ Electrolytes/ Dextrose 2,000 ml @ 80 mls/hr ONCE ONCE IV Last administered on 08/06/25at 04:53; Start 08/06/25 at 05:00; Stop 08/07/25 at 05:59; Status DC Pharmacy Profile Note 1 each ONCE MISC; Start 08/06/25 at 16:00; Stop 08/07/25 at 07:07; Status DC Lidocaine HCl/Al Hydroxide/Mg Hydroxide/ Dicyclomine HCl 20ML OR AD ONCE PO Last administered on 08/06/25at 16:45; Start 08/06/25 at 16:30; Stop 08/07/25 at 16:29; Status DC Multivitamins/ Minerals 10 ml/ Amino Acids/ Electrolytes/ Dextrose 2,000 ml @ 80 mls/hr ONCE ONCE IV; Start 08/07/25 at 07:00; Stop 08/07/25 at 06:32; Status DC Multivitamins/ Minerals 10 ml/ Chromium/Copper/ Manganese/Zinc 3 ml/Amino Acids/ Electrolytes/ Dextrose 2,000 ml @ 80 mls/hr ONCE ONCE IV Last administered on 08/07/25at 06:41; Start 08/07/25 at 07:00; Stop 08/08/25 at 04:36; Status DC Acetaminophen 500 mg Q6H6 PRN PO; Start 08/07/25 at 10:00; Stop 08/07/25 at 10:03; Status DC Hydromorphone HCl 0.5 mg Q4H PRN IVP Last administered on 08/10/25at 20:27; Start 08/07/25 at 10:00; Stop 08/11/25 at 10:32; Status DC Acetaminophen/ Hydrocodone Bitart 1 tab Q4H PRN PO Last administered on 08/12/25at 00:46; Start 08/07/25 at 12:30; Stop 08/12/25 at 12:29; Status DC Chromium/Copper/ Manganese/Zinc 3 ml/Amino Acids/ Electrolytes/ Dextrose 2,000 ml @ 80 mls/hr ONCE ONCE IV; Start 08/08/25 at 05:00; Stop 08/08/25 at 04:59; Status DC Chromium/Copper/ Manganese/Zinc 3 ml/Amino Acids/ Electrolytes/ Dextrose 2,000 ml @ 80 mls/hr ONCE ONCE IV Last administered on 08/08/25at 05:51; Start 08/08/25 at 07:00; Stop 08/09/25 at 05:18; Status DC Chromium/Copper/ Manganese/Zinc 3 ml/Amino Acids/ Electrolytes/ Dextrose 2,000 ml @ 80 mls/hr ONCE ONCE IV Last administered on 08/09/25at 06:11; Start 08/09/25 at 07:00; Stop 08/10/25 at 07:59; Status DC Lidocaine HCl 50 ml STK-MED ONCE .ROUTE; Start 08/09/25 at 09:59; Stop 08/09/25 at 09:59; Status DC Iohexol 50 ml STK-MED ONCE IV; Start 08/09/25 at 09:59; Stop 08/09/25 at 09:59; Status DC Sodium Chloride 10 ml Q8H IJ Last administered on 08/24/25at 03:22; Start 08/09/25 at 11:00; Stop 09/08/25 at 10:59 Fentanyl 12 mcg Q72H TD; Start 08/09/25 at 13:00; Stop 08/09/25 at 15:19; Status DC Fentanyl Citrate 100 mcg STK-MED ONCE .ROUTE Last administered on 08/09/25 16:15; Start 08/09/25 at 13:17; Stop 08/09/25 at 13:17; Status DC Midazolam HCl 2 mg STK-MED ONCE .ROUTE Last administered on 08/09/25at 16:15; Start 08/09/25 at 13:17; Stop 08/09/25 at 13:18; Status DC Fentanyl 12 mcg Q72H TD Last administered on 08/09/25at 15:38; Start 08/09/25 at 15:30; Stop 08/11/25 at 10:32; Status DC Chromium/Copper/ Manganese/Zinc 3 ml/Multivitamins/ Minerals 10 ml/ Amino Acids/ Electrolytes/ Dextrose 2,000 ml @ 80 mls/hr ONCE ONCE IV Last administered on 08/10/25at 09:54; Start 08/10/25 at 08:30; Stop 08/11/25 at 09:29; Status DC Piperacillin Sod/ Tazobactam Sod 3.375 gm Q8H IVPB Last administered on 08/20/25at 04:32; Start 08/10/25 at 13:00; Stop 08/20/25 at 12:59; Status DC Fentanyl 25 mcg Q72H TD; Start 08/12/25 at 15:30; Stop 08/12/25 at 16:00; Status DC Hydromorphone HCl 0.5 mg Q6H PRN IVP Last administered on 08/15/25at 16:03; Start 08/11/25 at 11:00; Stop 08/16/25 at 10:59; Status DC Methocarbamol 500 mg BID PO Last administered on 08/24/25at 09:09; Start 08/11/25 at 16:00; Stop 09/10/25 at 15:59 Gabapentin 100 mg TID PO Last administered on 08/24/25at 13:51; Start 08/11/25 at 21:00; Stop 09/10/25 at 20:59 Multivitamins/ Minerals 10 ml/ Chromium/Copper/ Manganese/Zinc 3 ml/Amino Acids/ Electrolytes/ Dextrose 2,000 ml @ 80 mls/hr ONCE ONCE IV Last administered on 08/12/25at 22:38; Start 08/12/25 at 20:00; Stop 08/13/25 at 11:49; Status DC Fat Emulsion Intravenous 250 ml @ 42 mls/hr DAILY10 IV Last administered on 08/18/25at 09:57; Start 08/13/25 at 10:00; Stop 08/19/25 at 10:44; Status DC Fentanyl 25 mcg Q72H TD Last administered on 08/16/25at 00:02; Start 08/12/25 at 21:00; Stop 08/17/25 at 20:59; Status DC Acetaminophen/ Hydrocodone Bitart 1 tab Q4H PRN PO Last administered on 08/17/25at 10:17; Start 08/12/25 at 16:30; Stop 08/17/25 at 16:29; Status DC Home Med HS TD; Start 08/12/25 at 21:00; Stop 08/21/25 at 00:24; Status DC Multivitamins/ Minerals 10 ml/ Chromium/Copper/ Manganese/Zinc 3 ml/Amino Acids/ Electrolytes/ Dextrose 2,000 ml @ 80 mls/hr ONCE ONCE IV Last administered on 08/13/25at 20:15; Start 08/13/25 at 20:00; Stop 08/14/25 at 11:29; Status DC Multivitamins/ Minerals 10 ml/ Amino Acids/ Electrolytes/ Dextrose 2,000 ml @ 80 mls/hr ONCE ONCE IV Last administered on 08/14/25at 21:37; Start 08/14/25 at 20:00; Stop 08/15/25 at 20:59; Status DC Duloxetine HCl 30 mg BID PO Last administered on 08/24/25at 09:09; Start 08/15/25 at 21:00; Stop 09/14/25 at 20:59 Ketorolac Tromethamine 15 mg Q8H PRN IM Last administered on 08/16/25at 00:01; Start 08/15/25 at 18:30; Stop 08/16/25 at 06:57; Status DC Pharmacy Profile Note 1 each ONCE MISC; Start 08/16/25 at 16:00; Stop 08/15/25 at 21:12; Status DC Multivitamins/ Minerals 10 ml/ Amino Acids/ Electrolytes/ Dextrose 2,000 ml @ 80 mls/hr ONCE ONCE IV Last administered on 08/15/25at 23:25; Start 08/15/25 at 21:00; Stop 08/16/25 at 13:13; Status DC Amino Acids/ Electrolytes/ Dextrose 2,000 ml @ 80 mls/hr ONCE ONCE IV; Start 08/16/25 at 13:30; Stop 08/17/25 at 01:21; Status DC Ondansetron HCl 4 mg Q6H IVP Last administered on 08/24/25at 05:40; Start 08/16/25 at 18:00; Stop 09/15/25 at 17:59 Amino Acids/ Electrolytes/ Dextrose 2,000 ml @ 40 mls/hr ONCE ONCE IV Last administered on 08/17/25at 01:40; Start 08/17/25 at 01:30; Stop 08/19/25 at 10:44; Status DC Acetaminophen/ Hydrocodone Bitart 1 tab Q6H PRN PO Last administered on 08/22/25at 19:25; Start 08/17/25 at 21:30; Stop 08/22/25 at 21:29; Status DC Fluconazole/ Sodium Chloride 100 ml @ 100 mls/hr DAILY IV Last administered on 08/24/25at 09:10; Start 08/20/25 at 22:30; Stop 08/25/25 at 23:00 Piperacillin Sod/ Tazobactam Sod 3.375 gm Q8H IVPB Last administered on 08/23/25at 00:15; Start 08/20/25 at 23:00; Stop 08/23/25 at 06:05; Status DC Sodium Chloride 50 ml AD IV; Start 08/20/25 at 22:30; Stop 08/20/25 at 22:43; Status DC Piperacillin Sod/ Tazobactam Sod 3.375 gm Q8H IVPB Last administered on 08/24/25at 09:08; Start 08/23/25 at 08:00; Stop 09/02/25 at 07:59 Acetaminophen/ Hydrocodone Bitart 1 tab ONCE ONCE PO Last administered on 08/23/25at 21:19; Start 08/23/25 at 21:00; Stop 08/23/25 at 21:01; Status DC Sodium Chloride 1,000 mg DAILY PO Last administered on 08/24/25at 13:50; Start 08/24/25 at 13:30; Stop 09/23/25 at 13:29 BENEDICTO OBRIEN Jr. PAC Aug 24, 2025 13:57
--- NOTE | 2025-08-24 14:00 | NUR ---
ANTIB[facility] CONTACTED DR. ROGER FOR DISCHARGE ANTIBIOTICS. PER DR. ROGER, NO FURTHER ANTIBIOTICS NEEDED AFTER DISCHARGE. PRIMARY DOCTOR NOTIFIED OF RECOMMENDATIONS.
[2025-08-24] MEDS: HYDROcodone/APAP 5/325 1 TAB TABLET PO ONE (20:49)
--- NOTE | 2025-08-24 21:10 | PN ---
INFECTIOUS DISEASE PROGRESS NOTE Date of Service: Aug 24, 2025 SUBJECTIVE: Patient is awake, alert and oriented x3. afebrile, temperature is 98.2. Small amount of serosanguineous drainage observe in the left drainage catheter. We will continue on Zosyn and fluconazole. PHYSICAL EXAM EYES: Anicteric. Pupils equal and reactive. HENT: No oral thrush seen, moist Oral mucosa. NECK: Supple, no JVD or thyromegaly. LUNGS: Good air entry. No rales, no rhonchi. CARDIOVASCULAR: S1, S2 regular. No murmur heard. ABDOMEN: Soft, non tender, bowel sounds present. Left Perisplenic abscess percutaneous drainage catheter. Right ileostomy. Right cholecystostomy tube. CENTRAL NERVOUS SYSTEM: Awake, alert, oriented x 3. SKIN: No rashes, no swelling. LYMPHATICS: No peripheral lymphadenopathy. MUSCULOSKELETAL: No joint swelling, erythema or tenderness. EXTREMITIES: No cyanosis or clubbing. BACK: No deformity, no pressure ulcer. GENITOURINARY: No dysuria or hematuria. Vital Sign (Last 12 Hours) 08/24/25 08/24/25 08/24/25 11:24 16:23 19:40 Temp 98.1 98.1 97.9 Pulse 92 90 86 Resp 16 16 18 B/P (MAP) 112/74 108/74 133/80 Pulse Ox 98 99 98 O2 Delivery Room Air Room Air Room Air FiO2 21 Intake & Output (last 24hrs) 08/23/25 08/23/25 08/24/25 15:00 23:00 07:00 Intake Total 720 ml 200 ml Output Total 312 ml 350 ml Balance 720 ml -112 ml -350 ml LABS: Laboratory: Test 08/24/25 19:22 08/24/25 05:21 08/23/25 07:30 08/23/25 04:40 Range/Units Whole Blood Glucose 96 70-110 MG/DL White Blood Count 6.5 4.8-10.8 K/uL Red Blood Count 4.02 4.00-5.50 MIL/uL Hemoglobin 12.0 12.0-16.0 g/dL Hematocrit 36.6 36-48 % Mean Corpuscular Volume 91.0 79-99 fL Mean Corpuscular Hemoglobin 29.9 27.0-33.0 pg Mean Corpuscular Hemoglobin Concent 32.8 32.0-36.0 g/dL Red Cell Distribution Width 17.2 H 11.0-15.5 % Platelet Count 226 130-400 K/uL Mean Platelet Volume 9.1 7.5-10.5 fL Nucleated Red Blood Cells 0.0 0.0-0.19 % Sodium Level 124 L 136-145 mmol/L Potassium Level 5.1 3.5-5.1 mmol/L Chloride Level 97 L 101-111 mmol/L Carbon Dioxide Level 19 L 21-32 mmol/L Blood Urea Nitrogen 17 7-18 mg/dL Creatinine 1.2 H 0.5-1.0 mg/dL Glomerular Filtration Rate Calc 53 >90 mL/min Random Glucose 122 H 70-105 mg/dL Serum Osmolality 269 L 278-305 mOsm/kg Total Calcium 10.0 8.5-10.1 mg/dL Total Bilirubin 0.8 0.2-1.0 mg/dL Aspartate Amino Transf (AST/SGOT) 48 H 10-37 U/L Alanine Aminotransferase (ALT/SGPT) 25 12-78 U/L Alkaline Phosphatase 227 H 50-136 U/L Total Protein 9.0 H 6.0-8.3 g/dL Albumin 3.1 L 3.5-5.0 g/dL Cortisol AM Sample 15.8 6.2-19.4 ug/dL Immature Granulocyte % (Auto) 0.9 0-1 % Neutrophils (%) (Auto) 70.6 40.0-77.0 % Lymphocytes (%) (Auto) 15.6 L 21.0-51.0 % Monocytes (%) (Auto) 9.7 3.0-13.0 % Eosinophils (%) (Auto) 2.6 0.0-8.0 % Basophils (%) (Auto) 0.6 0.0-5.0 % Neutrophils # (Auto) 4.5 1.8-7.7 K/uL Lymphocytes # (Auto) 1.0 1.0-4.8 K/uL Monocytes # (Auto) 0.6 0.1-1.0 K/uL Eosinophils # (Auto) 0.17 0.00-0.70 K/uL Basophils # (Auto) 0.04 0.00-0.20 K/uL Absolute Immature Granulocyte (auto 0.06 0-1 K/uL Magnesium Level 1.70 L 1.80-2.40 mg/dL ASSESSMENT: Acute cholecystitis, s/p cholecystostomy tube placement on 08/02/2025. Concern for cholecystostomy tube dislodgement status post cholecystogram with findings of multiple gallstones on 08/09/2025. Perisplenic abscess, s/p CT-guided drainage placement on 08/09/2025. Persistent abdominal pain, s/p EGD with findings acute gastritis. Septic shock, resolved. Possible continues bacterial peritonitis. Generalized peritonitis with ESBL and E coli infection. Infection with multidrug resistant organism. Hypoalbuminemia, improving. Suspected bowel perforation, s/p diagnostic laparoscopy, abdominal washout, ileostomy creation and CHRIS drain placement on 07/21/2025, s/p CHRIS drain removal. Diabetes mellitus. Recent colovesical fistula repair with sigmoid colon resection and anastomosis on 07/09/2025 PLAN: Continue Zosyn. Continue fluconazole. Continue pain management. Continue GI prophylaxis. Continue antidiabetics. Continue nutritional support. Continue drainage catheter care. This case was reviewed and discussed with my supervising physician Dr. Roger and the above assessment and plan was formulated and agreed upon. ATTESTATION BY PHYSICIAN I have seen and examined the patient. I reviewed the documentation, medical dec ision making, and treatment plan as noted by the mid-level provider above. I agree with the findings and plan of care. AMIE ROGER MD, [facility] L [facility] Aug 24, 2025 21:10
[2025-08-25 04:12] LABS: NUCLEATED RED BLOOD CELLS 0.0 % (0.0-0.19); PLATELET COUNT (AUTO) 242.0 K/uL (130-400); RED BLOOD CELL COUNT(AUTO) 4.47 MIL/uL (4.00-5.50); RED CELL DISTRIBUTION WIDTH 17.1 % (11.0-15.5); WHITE BLOOD COUNT (AUTO) 6.8 K/uL (4.8-10.8)
[2025-08-25 04:27] LABS: ASPARTATE AMINOTRANSFERASE 52.0 U/L (10-37); CREATININE 1.0 mg/dL (0.5-1.0); GLOMERULAR FILTR. RATE CALC 66.0 mL/min (>90); GLUCOSE,RANDOM 137.0 mg/dL (70-105); SODIUM SERUM 126.0 mmol/L (136-145); TOTAL PROTEIN, SERUM 9.0 g/dL (6.0-8.3); UREA NITROGEN, BLOOD 18.0 mg/dL (7-18)
[2025-08-25 04:52] VITALS: BP 108/71; PULSE 92; RESP 18; TEMP 97.9
[2025-08-25 07:45] VITALS: BP 118/77; PULSE 94; RESP 18; TEMP 97.6
[2025-08-25 10:00] VITALS: O2SAT 94
--- NOTE | 2025-08-25 10:00 | NUR ---
NUTRITION PATIENT'S BREAKFAST TRAY UNTOUCHED AT BEDSIDE. ENCOURAGED PATIENT NEEDING TO EAT MEALS TO HELP WITH NUTRITION, STRENGTH AND HEALING. PATIENT VOICED UNDERSTANDING. EDUCATED ON IMPORTANCE OF NUTRITION AND HOW IT CORRELATES WITH HEALING PROCESS. PATIENT VOICED UNDERSTANDING. STATED WILL TRY AND EAT "LATER". WILL CONTINUE TO MONITOR.
--- NOTE | 2025-08-25 10:19 | NUR ---
ILEOSTOMY BAG PATIENT REPORTED RED DRAINAGE COMING FROM ILEOSTOMY BAG. EMPTIED OUT 100MLS OF DARK RED DRAINAGE MIXED WITH OUTPUT. NO BLEEDING NOTED TO AREA. PATIENT DENIES ANY PAIN OR DISCOMFORT AT THIS TIME. PATIENT STATED OUTPUT OCCURRED AFTER AMBULATING TO RESTROOM. FINDINGS REPORTED TO [facility]. NO NEW ORDERS OR RECOMMENDATIONS GIVEN AT THIS TIME. PRIMARY NOTIFIED. WILL CONTINUE TO MONITOR.
[2025-08-25 11:19] VITALS: BP 129/82; PULSE 98; RESP 19; TEMP 97.6
--- NOTE | 2025-08-25 12:12 | NUR ---
LUNCH TRAY PROVIDED PATIENT WITH LUNCH TRAY. ENCOURAGED TO EAT SLOWLY TO PREVENT ANY NAUSEA AND OR VOMITING. PATIENT VOICED UNDERSTANDING AND STATED WILL ATTEMPT TO EAT LATER. STATED DID NOT HAVE ANY APPETITE TO EAT BUT WILL ATTEMPT. REITERATED IMPORTANCE OF NUTRITION TO HELP WITH STRENGTH AND HEALING PROCESS. PATIENT VOICED UNDERSTANDING. WILL CONTINUE TO MONITOR.
--- NOTE | 2025-08-25 12:31 | PN ---
NEPHROLOGY PROGRESS NOTE Date/Time Patient Seen: Aug 25, 2025 SUBJECTIVE: This is a 55-year-old female with a past medical history of diabetes mellitus type 2, liver cirrhosis, esophageal varices. He presented to the emergency room with chief complain of abdominal pain. CT of the abdomen showed moderate small bowel enteritis with free air in the upper abdomen, suggesting perforated bowel versus post surgical changes. No obs truction. S/p diagnostic laparoscopy, abdominal washout, drain placement and diverting loop ileostomy creation with CHRIS drain 10 Lebanese on 07/21 S/P cholecystotomy tube on 08/02 S/P Cholecystogram showed cholecystotomy tube in satisfactory position with multiple large gallstones seen in the gallbladder lumen on 08/09 S/P successful CT guided drainage of left infrasplenic collection on 08/09 Diet is being advanced as tolerated She was noted to have elevated BUN/creatinine We are consulted for renal failure Renal function is stable Continues with hyponatremia, continue sodium chloride tablets Pending discharge disposition later today She was seen in the [facility] floor, in no acute distress No family at the bedside REVIEW OF SYSTEMS: GENERAL: Positive for nausea NEUROLOGIC: Negative for any blurry vision, blind spots, double vision, facial asymmetry, dysphagia, dysarthria, hemiparesis, hemisensory deficits, vertigo, ataxia. HEENT: Negative for any head trauma, neck trauma, neck stiffness, photophobia, phonophobia, sinusitis, rhinitis. CARDIAC: Negative for any chest pain, dyspnea on exertion, paroxysmal nocturnal dyspnea, peripheral edema. PULMONARY: Negative for any shortness of breath, wheezing, COPD, or TB exposure. GASTROINTESTINAL: Negative for any abdominal pain, nausea, vomiting, bright red blood per rectum, melena. GENITOURINARY: Negative for any dysuria, hematuria, incontinence. INTEGUMENTARY: Negative for any rashes, cuts, insect bites. RHEUMATOLOGIC: Negative for any joint pains, photosensitive rashes, history of vasculitis or kidney problems. HEMATOLOGIC: Negative for any abnormal bruising, frequent infections or bleeding. Vital Signs (last 8hr) Date Time Temp Pulse Resp B/P (MAP) Pulse Ox O2 Delivery O2 Flow Rate FiO2 08/25/25 11:19 97.5 98 19 129/82 98 Room Air 08/25/25 10:00 94 Room Air* 0 21 08/25/25 07:45 97.5 94 18 118/77 97 Room Air 08/25/25 04:52 97.9 92 18 108/71 98 Room Air 21 PHYSICAL EXAM: GENERAL: Alert and oriented x 3. No acute distress. Well-nourished. EYES: EOMI. Anicteric. HENT: Moist mucous membranes. No scleral icterus. No cervical lymphadenopathy. LUNGS: Clear to auscultation bilaterally. No accessory muscle use. CARDIOVASCULAR: Regular rate and rhythm. No murmur. No JVD. ABDOMEN: Soft, non-tender and non-distended. No palpable masses. EXTREMITIES: No edema. Non-tender SKIN: No rashes or lesions. Warm. NEUROLOGIC: No focal neurological deficits. CN II-XII grossly intact, but not individually tested. PSYCHIATRIC: Cooperative. Appropriate mood and affect. Current Medications Medications (Trade) Dose Ordered Sig/Gregory Route Start Time Stop Time Status Last Admin Dose Admin Albumin Human 50 ml @ 100 mls/hr Q12H IV 08/02/25 21:30 08/05/25 09:59 DC 08/05/25 10:12 100 MLS/HR Albumin Human 50 ml @ 0 mls/hr Q12H IV 08/02/25 18:30 08/02/25 20:04 DC Albumin Human 100 ml @ 0 mls/hr ONCE IV 07/25/25 12:00 07/26/25 11:59 DC 07/25/25 13:43 100 MLS/HR Clotrimazole (Lotrimin) 1 GM BID TP 07/29/25 21:00 08/28/25 20:59 08/20/25 21:00 1 GM Cyclobenzaprine HCl (Cyclobenzaprine HCl) 5 mg TID PO 07/25/25 14:00 07/26/25 14:00 DC 07/26/25 14:19 5 MG Duloxetine HCl (CymbALTA 30 mg CAP) 30 mg BID PO 08/15/25 21:00 09/14/25 20:59 08/21/25 08:14 30 MG Fat Emulsion Intravenous 250 ml @ 42 mls/hr DAILY10 IV 08/13/25 10:00 08/19/25 10:44 DC 08/18/25 09:57 42 MLS/HR Fentanyl (DURAgesic 12 MCG/HR PATCH) 12 mcg Q72H TD 08/09/25 13:00 08/09/25 15:19 DC Fentanyl (DURAgesic 12 MCG/HR PATCH) 12 mcg Q72H TD 08/09/25 15:30 08/11/25 10:32 DC 08/09/25 15:38 12 MCG Fentanyl (DURAgesic 25 MCG/HR PATCH) 25 mcg Q72H TD 07/31/25 14:30 07/31/25 14:44 DC Fentanyl (DURAgesic 25 MCG/HR PATCH) 25 mcg Q72H TD 08/12/25 15:30 08/12/25 16:00 DC Fentanyl (DURAgesic 25 MCG/HR PATCH) 25 mcg Q72H TD 08/12/25 21:00 08/17/25 20:59 DC 08/16/25 00:02 25 MCG Fluconazole/ Sodium Chloride 100 ml @ 100 mls/hr DAILY IV 08/20/25 22:30 08/23/25 23:00 08/21/25 08:09 100 MLS/HR Fluconazole/ Sodium Chloride (DiFLUCan 200 MG/ NS 100 ML) 200 mg Q24H IVPB 07/21/25 21:00 08/20/25 20:59 DC 08/19/25 20:18 200 MG Furosemide (LASix 20MG TAB) 20 mg DAILY PO 07/25/25 11:00 08/02/25 11:53 DC 08/02/25 09:42 20 MG Gabapentin (NEURontin 100 mg CAP) 100 mg TID PO 07/29/25 14:00 08/02/25 09:21 DC 08/01/25 20:14 100 MG Gabapentin (NEURontin 100 mg CAP) 100 mg TID PO 08/11/25 21:00 09/10/25 20:59 08/21/25 13:21 100 MG Home Med (Compound Po Narcotic) HS TD 08/12/25 21:00 08/21/25 00:24 DC Insulin Human Regular (humuLIN R 100 UNIT/ML 3ML) INSULIN SLIDING SCAL... ACHS SQ 07/21/25 07:30 08/20/25 07:29 DC 08/18/25 17:31 2 UNIT Lactated Ringer's 1,000 ml @ 75 mls/hr [id number] IV 07/21/25 00:00 07/21/25 13:17 DC 07/21/25 02:57 75 MLS/HR Lactated Ringer's 1,000 ml @ 75 mls/hr [id number] IV 07/21/25 13:30 07/24/25 11:09 DC 07/24/25 09:27 75 MLS/HR Lactobacillus Rhamnosus ([facility]) 1 each DAILY20 PO 07/26/25 20:00 08/25/25 19:59 08/20/25 20:08 1 EACH Lidocaine (Lidoderm Patch 5%) 1 patch DAILY TP 07/28/25 09:00 08/27/25 08:59 08/21/25 08:17 1 PATCH Lidocaine HCl/Al Hydroxide/Mg Hydroxide/ Dicyclomine HCl 20ML OR AD ONCE PO 08/06/25 16:30 08/07/25 16:29 DC 08/06/25 16:45 20 ML Methocarbamol (methoCARBamol) 500 mg BID PO 08/11/25 16:00 09/10/25 15:59 08/21/25 08:15 500 MG Metoclopramide HCl (regLAN 10MG IV) 5 mg BID IVP 08/04/25 21:00 09/03/25 20:59 08/21/25 08:16 5 MG Metronidazole/ Sodium Chloride (flaGYL) 500 mg Q8H IV 07/21/25 14:00 07/21/25 13:40 DC Norepinephrine 250 ml @ 0 mls/hr PROTOCOL IV 07/20/25 23:30 08/03/25 08:27 DC 07/21/25 10:56 18.45 MLS/HR Ondansetron HCl (zoFRAN 4MG INJ) 4 mg Q6H IVP 08/16/25 18:00 09/15/25 17:59 08/21/25 13:20 4 MG Pantoprazole Sodium (PROTonix 40MG INJ) 40 mg BID IV 07/26/25 21:00 08/20/25 08:59 DC 08/19/25 20:16 40 MG Pantoprazole Sodium (PROTonix 40MG INJ) 40 mg BID IVP 08/05/25 21:00 08/06/25 08:39 DC 08/05/25 20:25 40 MG Pantoprazole Sodium (PROTonix 40MG INJ) 40 mg DAILY IV 07/21/25 09:00 07/26/25 09:31 DC 07/26/25 08:55 40 MG Pharmacy Profile Note (Pharmacy Communication) 1 each ONCE MISC 07/21/25 15:30 07/21/25 15:16 DC Pharmacy Profile Note (Pharmacy Communication) 1 each ONCE MISC 08/16/25 16:00 08/15/25 21:12 DC Pharmacy Profile Note (Pharmacy Communication) 1 each ONCE MISC 08/06/25 16:00 08/07/25 07:07 DC Piperacillin Sod/ Tazobactam Sod 50 ml @ 200 mls/hr ONCE STAT IVPB 07/20/25 19:15 07/20/25 19:29 DC 07/20/25 20:32 200 MLS/HR Piperacillin Sod/ Tazobactam Sod (Zosyn 3.375gm+NS 50ml) 3.375 gm Q12H IV 07/21/25 00:00 07/31/25 00:00 DC 07/30/25 23:55 3.375 GM Piperacillin Sod/ Tazobactam Sod (Zosyn 3.375gm+NS 50ml) 3.375 gm Q8H IVPB 07/31/25 11:30 08/10/25 11:29 DC 08/10/25 04:05 3.375 GM Piperacillin Sod/ Tazobactam Sod (Zosyn 3.375gm+NS 50ml) 3.375 gm Q8H IVPB 08/20/25 23:00 08/23/25 23:00 08/21/25 06:05 3.375 GM Piperacillin Sod/ Tazobactam Sod (Zosyn 3.375gm+NS 50ml) 3.375 gm Q8H IVPB 08/10/25 13:00 08/20/25 12:59 DC 08/20/25 04:32 3.375 GM Psyllium Hydrophilic Mucilloid (Metamucil) 1 tbs BID PO 07/26/25 21:00 08/25/25 20:59 08/21/25 08:16 1 TBS Simethicone (Mylicon) 80 mg Q6H6 PO 07/27/25 12:00 08/26/25 11:59 08/21/25 13:21 80 MG Sodium Bicarbonate 150 meq/Sodium Chloride 1,150 ml @ 0 mls/hr Q0M IVP 07/21/25 14:00 07/26/25 09:31 DC Sodium Chloride (NS 50ml) 50 ml AD IV 07/31/25 11:30 07/31/25 11:12 DC Sodium Chloride (NS 50ml) 50 ml AD IV 08/20/25 22:30 08/20/25 22:43 DC Sodium Chloride (Normal Saline Flush) 10 ml Q8H IJ 08/09/25 11:00 09/08/25 10:59 08/21/25 11:00 10 ML Spironolactone (Aldactone 25mg) 25 mg BID PO 07/25/25 21:00 07/26/25 09:01 DC 07/26/25 08:56 25 MG Sucralfate (Carafate) 1 gm ACHS PO 07/29/25 21:00 08/28/25 20:59 08/21/25 13:20 1 GM Thiamine HCl (Vitamin B-1) 100 mg DAILY IVP 07/22/25 21:00 08/21/25 20:59 08/21/25 08:15 100 MG Thiamine HCl 100 mg/Sodium Chloride 50 ml @ 100 mls/hr Q24H IM 07/21/25 15:30 07/21/25 16:25 DC Vancomycin HCl (Vancomycin 1g/ 250ml Kit) 1 gm ONCE STAT IV 07/20/25 21:23 07/20/25 21:26 DC 07/20/25 22:06 1 GM Vasopressin 20 units/Sodium Chloride 100 ml @ 0 mls/hr PROTOCOL IV 07/21/25 00:30 08/03/25 08:27 DC 07/21/25 00:10 9 MLS/HR LABORATORY: [ ] Hematology Labs: Test 08/25/25 03:46 Range/Units White Blood Count 6.8 4.8-10.8 K/uL Red Blood Count 4.47 4.00-5.50 MIL/uL Hemoglobin 13.2 12.0-16.0 g/dL Hematocrit 40.0 36-48 % Mean Corpuscular Volume 89.5 79-99 fL Mean Corpuscular Hemoglobin 29.5 27.0-33.0 pg Mean Corpuscular Hemoglobin Concent 33.0 32.0-36.0 g/dL Red Cell Distribution Width 17.1 H 11.0-15.5 % Platelet Count 242 130-400 K/uL Mean Platelet Volume 9.4 7.5-10.5 fL Nucleated Red Blood Cells 0.0 0.0-0.19 % Chemistry Labs: Test 08/25/25 10:44 08/25/25 03:46 08/24/25 05:21 Range/Units Whole Blood Glucose 136 H 70-110 MG/DL Sodium Level 126 L 136-145 mmol/L Potassium Level 4.8 3.5-5.1 mmol/L Chloride Level 98 L 101-111 mmol/L Carbon Dioxide Level 15 L 21-32 mmol/L Blood Urea Nitrogen 18 7-18 mg/dL Creatinine 1.0 0.5-1.0 mg/dL Glomerular Filtration Rate Calc 66 >90 mL/min Random Glucose 137 H 70-105 mg/dL Total Calcium 10.1 8.5-10.1 mg/dL Total Bilirubin 0.7 0.2-1.0 mg/dL Aspartate Amino Transf (AST/SGOT) 52 H 10-37 U/L Alanine Aminotransferase (ALT/SGPT) 22 12-78 U/L Alkaline Phosphatase 227 H 50-136 U/L Total Protein 9.0 H 6.0-8.3 g/dL Albumin 3.1 L 3.5-5.0 g/dL Serum Osmolality 269 L 278-305 mOsm/kg DIAGNOSTICS / RADIOLOGY: [address] [address] IMAGING REPORT Signed PATIENT: DALLAS BUCHANAN MR#: [id number] : 1970 SEX: F AGE: 55 LOCATION: [facility] ORDER 7 STATUS: ADM IN REPORT#: [id number] SERVICE 09 REASON: EVALUATE PIGTAIL CATHETER FOR POSSIBLE REMOVAL ORDERING PHYSICIAN: BENEDICTO OBRIEN Jr. PAC PROCEDURE: ABDO WO - CT ABDOMEN W/O CONTRAST CT ABDOMEN W/O CONTRAST HISTORY: Patient is has a left inferior spleen fluid collection. Catheter drainage catheter which is not draining for removal. COMPARISON: Prior study from 08/04/2025 is available. TECHNIQUE: Multiple sequential axial images of the abdomen were obtained from the dome of the diaphragm through iliac crests. Patient was not given contrast through intravenous route. Oral contrast was not given. FINDINGS: No pleural effusion is seen bilaterally. There is no evidence of parenchymal disease or pulmonary nodule of the visualized lower lungs. Degenerative changes are seen of the thoracolumbar spine. The liver, adrenal glands and pancreas are unremarkable. There is a splenomegaly which is unchanged from prior CT. Spleen measures 17 cm. There is a cholecystotomy tube in place with decompressed gallbladder. There is a inferior splenic fluid collection with a drainage catheter in place with the fluid collection still persistent. There is no evidence of hydronephrosis bilaterally. No evidence of renal stone is seen. Fecal material is seen in the colon. There is a ileostomy in the right side of the abdomen. There are normal-sized retroperitoneal and mesenteric lymph nodes. No ascites is seen. Atherosclerotic changes are present. IMPRESSION: 1. There is a fluid collection with the pigtail catheter in place. The catheter was flushed with 10 cc of saline and would recommend keeping the catheter in place. I would recommend continuing flushing daily with 10 cc of saline and measure up with daily. 2. Splenomegaly 3. Cholecystotomy tube in place with decompressed gallbladder. CT was performed with one or more following dose reduction techniques: automated exposure control, adjustment of the mA and kv according to patient's size, or use of a iterative reconstruction technique. DICTATED BY: GREER FIORE MD DATE: 08/24/25815 ELECTRONICALLY SIGNED BY: GREER FIOER MD DATE: 08/24/25822 PATIENT: DALLAS BUCHANAN MR#: [id number] : 1970 SEX: F AGE: 55 LOCATION: [facility] ORDER 1 STATUS: ADM IN REPORT#: [id number] SERVICE 0 REASON: picc line placement ORDERING PHYSICIAN: AYAKA BARR MD PROCEDURE: CXR1VW - CHEST 1VW EXAM: CR Chest, single view. CLINICAL HISTORY: PICC line placement. COMPARISON: Prior chest radiograph dated July 22, 2025 FINDINGS: Left-sided PICC line placement with tip in the region of the superior vena cava. Mild cardiomegaly. An ill-defined soft tissue in the superior mediastinum possibility of aortic arch aneurysm, is not excluded. The lungs show no infiltrate or other acute findings. No pleural effusion or pneumothorax. No acute osseous abnormality. IMPRESSION: Left-sided PICC line placement with tip in the region of the superior vena cava. Mild cardiomegaly. An ill-defined soft tissue in the superior mediastinum possibility of aortic arch aneurysm, is not excluded. May consider further evaluation with contrast-enhanced CT thorax. Compared to the prior study, there is no interval resolution of the subsegmental atelectasis in the right lower lobe, interval removal of the nasogastric tube, and interval placement of the left-sided PICC catheter. /Circle DICTATED BY: ELDON MILLER Jr., MD DATE: 08/11/25824 ELECTRONICALLY SIGNED BY: ELDON MILLER Jr., MD DATE: 08/11/25824 PATIENT: DALLAS BUCHANAN MR#: [id number] : 1970 SEX: F AGE: 55 LOCATION: [facility] ORDER 1544 STATUS: ADM IN REPORT#: [id number] SERVICE 08 REASON: Aspiration of perisplenic fluid noted on CT ORDERING PHYSICIAN: BENEDICTO OBRIEN Jr. PROCEDURE: GUID NDL - CT GUIDE NDL PLCMT IR CT GUIDE NDL PLCMT IR HISTORY: Aspiration of perisplenic fluid noted on CT infrasplenic fluid collection drainage . TECHNIQUE: Images from prior studies reviewed. Informed consent was obtained after explaining the procedure and potential complications to the patient. Time out performed. The patient was placed prone on the CT couch and images of the abdomen obtained. The left flank draped in sterile fashion. Local anesthesia was applied and under CT-fluoroscopy guidance, a 19-gauge needle introducer was advanced through the abdominal wall and into a left infrasplenic fluid collection in the left hemiabdomen. Then, over a wire the tract was dilated to accommodate a 8 Lebanese APDL catheter, which was left coiled within the collection. Completion images reveal no hemorrhage. Patient tolerated the procedure well and was discharged from the department in good condition. Approximately 10 cc of fluid mL of fluid sent for cultures. Conscious sedation provided by a registered nurse who monitored the patient's vital signs throughout and after the procedure. MEDICATIONS: Fentanyl 100 mcg IV and Versed 2 mg IV IMPRESSION: Successful CT guided drainage of left infrasplenic collection. DICTATED BY: GREER FIORE MD DATE: 08/10/25927 ELECTRONICALLY SIGNED BY: GREER FIORE MD DATE: 08/10/25937 PATIENT: DALLAS BUCHANAN MR#: [id number] : 1970 SEX: F AGE: 55 LOCATION: [facility] ORDER 36 STATUS: ADM IN REPORT#: [id number] SERVICE 35 REASON: epigastric pain. not tolerating meals. ORDERING PHYSICIAN: SUSAN JHAVERI MD PROCEDURE: ABD PEL W - CT ABDOMEN/PELVIS W/CONTRAST EXAM: CT Abdomen and Pelvis with IV contrast CLINICAL HISTORY: epigastric pain. not tolerating meals. TECHNIQUE: Axial computed tomography images of the abdomen and pelvis with intravenous contrast. CONTRAST: with intravenous contrast. COMPARISON: Compared with the previous CT dated 07/20 and USG dated 07/29 FINDINGS: LUNG BASES: Grossly stable atelectasis and scarring at the lung bases. LIVER: Unremarkable. GALLBLADDER AND BILE DUCTS: The gallbladder is decompressed with a cholecystostomy tube in situ. PANCREAS: Unremarkable. SPLEEN: The spleen is enlarged in size, measuring 15.2 cm. ADRENAL GLANDS: Unremarkable. KIDNEYS, URETERS, AND BLADDER: No hydronephrosis or nephrolithiasis. No ureteral calculi. The urinary bladder is unremarkable. STOMACH AND BOWEL: The ileostomy site appears unremarkable. Interval resolution of previously seen moderate small bowel enteritis. No obstruction. APPENDIX: No CT evidence for appendicitis. PERITONEUM: Near complete interval resolution of previously seen moderate ascites in the abdomen and pelvis. Collection in the perisplenic and infra-splenic region measuring 6.0 x 6.1 x 8.9 cm. Interval resolution of previously seen pneumoperitoneum. Diffuse mesenteric fat stranding, likely postoperative changes. LYMPH NODES: No lymphadenopathy. REPRODUCTIVE: Unremarkable as visualized. VASCULATURE: No aortic aneurysm. ABDOMINAL WALL AND SOFT TISSUES: Interval resolution of previously seen subcutaneous emphysema in the anterior abdominal wall and left lateral chest wall. Abdominal drain in situ with tip in the pelvis. BONES: No fracture or suspicious osseous abnormality. IMPRESSION: 1. Perisplenic and infrasplenic fluid collection measuring 6.0 x 6.1 x 8.9 cm. 2. Splenomegaly, with spleen measuring 15.2 cm. 3. Cholecystostomy tube in situ with decompressed gallbladder. 4. Abdominal drain in situ with tip in the pelvis. 5. No acute findings in the remainder of the abdomen and pelvis. /Eastern DICTATED BY: ELDON MILLER Jr., MD DATE: 08/04/251636 ELECTRONICALLY SIGNED BY: ELDON MILLER Jr., MD DATE: 08/04/251636 PATIENT: DALLAS BUCHANAN MR#: [id number] : 1970 SEX: F AGE: 55 LOCATION: [facility] ORDER 1524 STATUS: ADM IN REPORT#: [id number] SERVICE 1523 REASON: cholecystitis ORDERING PHYSICIAN: BENEDICTO OBRIEN Jr. PROCEDURE: HIDA PHARM - NM HIDA/HEPATOBILI W/ PHARMACO EXAM: HIDA scan. INDICATION: Severe RUQ Pain to rule out cholecystitis. REFERENCE EXAMINATION: USG July 29, 2025. TECHNIQUE: Sequential images of the abdomen were obtained in the anterior projection after IV administration of 6.0 mCi of Tc99m Mebrofenin. FINDINGS: Tracer activity throughout the liver is homogeneous without focal defects. There is prompt excretion of the pharmaceutical into the bile ducts and into the small bowel, without evidence of obstruction. There is no visualization of the gallbladder at the conclusion of the examination. IMPRESSION: Scintigraphic findings are compatible with acute cholecystitis. /Eastern DICTATED BY: ELDON MILLER Jr., MD DATE: 08/01/25 1011 ELECTRONICALLY SIGNED BY: ELDON MILLER Jr., MD DATE: 08/01/25 1011 PATIENT: DALLAS BUCHANAN MR#: [id number] : 1970 SEX: F AGE: 55 LOCATION: [facility] ORDER 10 STATUS: ADM IN REPORT#: [id number] SERVICE 09 REASON: ABD PAIN ORDERING PHYSICIAN: NIKKI MUNOZ NP PROCEDURE: ABD 1VW - ABD 1VW EXAM: CR Abdomen, 1 view. CLINICAL HISTORY: Pain. COMPARISON: None provided. FINDINGS: Dilated small bowel loops are seen in mid abdomen. There is a density in the pelvis which may represent a send drainage catheter. No free air is evident. No abnormal calcification. No aggressive appearing osseous lesion. IMPRESSION: Dilated small bowel loops are seen in mid abdomen. Density in the pelvis which may represent a send drainage catheter. /Eastern DICTATED BY: TOBI LEAHY MD DATE: 07/29/251032 ELECTRONICALLY SIGNED BY: TOBI LEAHY MD DATE: 07/29/251032 PATIENT: DALLAS BUCHANAN MR#: [id number] : 1970 SEX: F AGE: 55 LOCATION: [facility] ORDER 18 STATUS: ADM IN REPORT#: [id number] SERVICE 15 REASON: Liver cirrhosis ORDERING PHYSICIAN: LISET DOUGLAS MD PROCEDURE: ABDOMEN - US ABDOMINAL COMPLETE EXAM: US Abdomen complete CLINICAL HISTORY: Liver cirrhosis TECHNIQUE: Real-time ultrasound of the abdomen (complete) with image documentation. COMPARISON: None provided. FINDINGS: LIVER: Liver measures 12.3 cm with a heterogeneous coarse echotexture. GALLBLADDER: Gallbladder contains stones and sludge. Gallbladder is distended. COMMON BILE DUCT: No dilation. PANCREAS: Pancreas not well-visualized due to overlying bowel gas KIDNEYS: Normal renal contours. No renal mass or calculus. No hydronephrosis. SPLEEN: Normal in size and echogenicity. No mass identified. AORTA: No aneurysm. IVC: Unremarkable as visualized. MISCELLANEOUS: Small amount of abdominal ascites. IMPRESSION: 1. Cirrhotic-appearing liver. 2. Cholelithiasis and biliary sludge with gallbladder distension. 3. Small volume ascites. /Circle DICTATED BY: CYNTHIA JULIAN MD DATE: 07/29/251055 ELECTRONICALLY SIGNED BY: CYNTHIA JULIAN MD DATE: 07/29/251055 PATIENT: DALLAS BUCHANAN MR#: [id number] : 1970 SEX: F AGE: 55 LOCATION: [facility] ORDER 1108 STATUS: ADM IN REPORT#: [id number] SERVICE 05 REASON: sob ORDERING PHYSICIAN: PREET BOSTON MD PROCEDURE: CXR1VW - CHEST 1VW CHEST 1VW REASON: sob COMPARISON: Study from 07/21/2025 is available. FINDINGS: Single view of the chest was obtained. Lungs are clear. Heart size is normal. There is no pulmonary vascular congestion. There is a right-sided PIC catheter with tip in superior vena cava. There is a nasogastric tube with the tip in the fundus of the stomach. Mediastinum and bony thorax appear unremarkable. IMPRESSION: 1. No acute cardiopulmonary process 2. The support lines are in satisfactory position.. DICTATED BY: GREER FIORE MD DATE: 07/22/251349 ELECTRONICALLY SIGNED BY: GREER FIORE MD DATE: 07/22/25 135 PATIENT: DALLAS BUCHANAN MR#: [id number] : 1970 SEX: F AGE: 55 LOCATION: [facility] ORDER 0100 STATUS: ADM IN REPORT#: [id number] SERVICE 010 REASON: PICC LINE ORDERING PHYSICIAN: HEATHER LEACH APRN PROCEDURE: CXR1VW - CHEST 1VW EXAM: CR Chest, single view. CLINICAL HISTORY: PICC line COMPARISON: Prior same day chest radiograph. FINDINGS: Right-sided PICC catheter with tip in the cavoatrial junction. Subsegmental atelectasis in the right lower lobe. No evidence of pleural effusion or pneumothorax. The cardiomediastinal silhouette is within normal limits. No acute osseous abnormality. IMPRESSION: Right-sided PICC catheter with tip in the cavoatrial junction. Subsegmental atelectasis in the right lower lobe. No evidence of pleural effusion or pneumothorax. Compared to the prior study, there is interval placement of the right-sided PICC line and interval resolution of the subsegmental atelectasis in the left lower lobe. /Eastern DICTATED BY: ELDON MILLER Jr., MD DATE: 07/21/25816 ELECTRONICALLY SIGNED BY: ELDON MILLER Jr., MD DATE: 07/21/25816 PATIENT: DALLAS BUCHANAN MR#: [id number] : 1970 SEX: F AGE: 55 LOCATION: [facility] ORDER 14 STATUS: REG [facility] REPORT#: [id number] SERVICE 12 REASON: CHEST PAIN/COUGH ORDERING PHYSICIAN: ALHAJI SHINE NP PROCEDURE: CXR1VW - CHEST 1VW EXAM: XR Chest, 1 View. CLINICAL HISTORY: 55 year old female with chest pain and cough. COMPARISON: None provided. FINDINGS: LUNGS: The lungs demonstrate evidence of atelectasis. PLEURAL SPACES: A small right pleural effusion is present. HEART: The heart size is normal. BONES: No acute osseous abnormality. IMPRESSION: 1. Small right pleural effusion and right lung base atelectasis. /Eastern DICTATED BY: EDWIGE LEDESMA MD DATE: 07/20/252046 ELECTRONICALLY SIGNED BY: EDWIGE LEDESMA MD DATE: 07/20/252046 PATIENT: DALLAS BUCHANAN MR#: [id number] : 1970 SEX: F AGE: 55 LOCATION: [facility] ORDER 14 STATUS: REG ER REPORT#: [id number] SERVICE 12 REASON: Abdominal Pain ORDERING PHYSICIAN: ALHAJI SHINE NP PROCEDURE: ABD PEL W - CT ABDOMEN/PELVIS W/CONTRAST ADDENDUM REPORT ADDENDUM: Results were shared by telephone at 23:23 pm on 07-20-2025 and acknowledged by Pt nurse Ms. HSIN BOYKIN. /Eastern EXAM: CT Abdomen and Pelvis with Intravenous Contrast CLINICAL HISTORY: 55-year-old female with abdominal pain. TECHNIQUE: Axial computed tomography images of the abdomen and pelvis with intravenous contrast. Dose reduction technique was used including one or more of the following: automated exposure control, adjustment of mA and kV according to patient size, and/or iterative reconstruction. CONTRAST: Omnipaque 350, 75 mL COMPARISON: None provided. FINDINGS: LUNG BASES: Atelectasis and scarring at the lung bases. LIVER: Unremarkable. GALLBLADDER AND BILE DUCTS: Tiny gallstone seen. PANCREAS: Unremarkable. SPLEEN: Unremarkable. ADRENAL GLANDS: Unremarkable. KIDNEYS, URETERS, AND BLADDER: Dueñas catheter seen in the bladder lumen. No hydronephrosis or nephrolithiasis. No ureteral calculi. STOMACH AND BOWEL: Edema or loops of small bowel suggesting moderate small bowel enteritis. Free air in the upper abdomen is seen, suggesting perforated bowel. No obstruction. APPENDIX: No CT evidence for appendicitis. PERITONEUM: Moderate ascites in the abdomen and pelvis. No free air under the diaphragm. LYMPH NODES: No lymphadenopathy. REPRODUCTIVE: Unremarkable as visualized. VASCULATURE: No aortic aneurysm. ABDOMINAL WALL AND SOFT TISSUES: There is air in the subcutaneous soft tissue seen anteriorly, suggesting recent postsurgical changes; please correlate with surgical history. BONES: No fracture or suspicious osseous abnormality. IMPRESSION: 1. Moderate small bowel enteritis with free air in the upper abdomen, suggesting perforated bowel versus post surgical changes. No obstruction. 2. Moderate ascites in the abdomen and pelvis. 3. Air in the subcutaneous soft tissue anteriorly, suggesting recent postsurgical changes; please correlate with surgical history. /[place] DICTATED BY: EDWIGE LEDESMA MD DATE: 07/20/252336 ELECTRONICALLY SIGNED BY: DATE: EXAM: CT Abdomen and Pelvis with Intravenous Contrast CLINICAL HISTORY: 55-year-old female with abdominal pain. TECHNIQUE: Axial computed tomography images of the abdomen and pelvis with intravenous contrast. Dose reduction technique was used including one or more of the following: automated exposure control, adjustment of mA and kV according to patient size, and/or iterative reconstruction. CONTRAST: Omnipaque 350, 75 mL COMPARISON: None provided. FINDINGS: LUNG BASES: Atelectasis and scarring at the lung bases. LIVER: Unremarkable. GALLBLADDER AND BILE DUCTS: Tiny gallstone seen. PANCREAS: Unremarkable. SPLEEN: Unremarkable. ADRENAL GLANDS: Unremarkable. KIDNEYS, URETERS, AND BLADDER: Dueñas catheter seen in the bladder lumen. No hydronephrosis or nephrolithiasis. No ureteral calculi. STOMACH AND BOWEL: Edema or loops of small bowel suggesting moderate small bowel enteritis. Free air in the upper abdomen is seen, suggesting perforated bowel. No obstruction. APPENDIX: No CT evidence for appendicitis. PERITONEUM: Moderate ascites in the abdomen and pelvis. No free air under the diaphragm. LYMPH NODES: No lymphadenopathy. REPRODUCTIVE: Unremarkable as visualized. VASCULATURE: No aortic aneurysm. ABDOMINAL WALL AND SOFT TISSUES: There is air in the subcutaneous soft tissue seen anteriorly, suggesting recent postsurgical changes; please correlate with surgical history. BONES: No fracture or suspicious osseous abnormality. IMPRESSION: 1. Moderate small bowel enteritis with free air in the upper abdomen, suggesting perforated bowel versus post surgical changes. No obstruction. 2. Moderate ascites in the abdomen and pelvis. 3. Air in the subcutaneous soft tissue anteriorly, suggesting recent postsurgical changes; please correlate with surgical history. /[place] DICTATED BY: EDWIGE LEDESMA MD DATE: 07/20/252317 ELECTRONICALLY SIGNED BY: EDWIGE LEDESMA MD DATE: 07/20/252317 ASSESSMENT: Acute kidney injury Hyponatremia Bacterial peritonitis Perisplenic and infrasplenic fluid collection with splenomegaly Cholelithiasis 2 mm perforation of the colonic anastomosis Anastomosis leak Bilious peritonitis S/p Diagnostic laparoscopy, abdominal washout, drain placement and diverting loop ileostomy creation Atrophic vaginitis Anemia Diabetes Mellitus Type 2 Septic Shock Cirrhosis of liver Oesophageal Varices PLAN: Labs, diagnostic, radiologic exams reviewed and interpreted by myself and supervising physician. We have reviewed external records in detail Monitor blood pressure adjust medication doses as needed Avoid hypotensive episodes May use Dilaudid 0.5 mg IV every 6 hours as needed for severe pain Monitor blood sugars Strict intake, output, and daily weight should be monitored Please renally adjust medications Avoid nephrotoxic and nonsteroidal drugs Avoid contrast if possible Will continue to monitor renal function, anemia, electrolytes Treatment plan discussed with patient Questions were answered We have discussed with the other team physicians in detail about the care plan We will continue to monitor the patient closely ATTESTATION BY PHYSICIAN I have seen and examined the patient. I reviewed the documentation, medical decision making, and treatment plan as noted by the mid-level provider above. I agree with the findings and plan of care. CIELO PORTILLO MD, [facility] Aug 25, 2025 12:31
--- NOTE | 2025-08-25 14:10 | NUR ---
ZOFRAN PATIENT REFUSED 1400 DOSE OF ZOFRAN. PATIENT STATED NOT FEELING NAUSEATED AT THIS TIME AND WILL HOLD OFF ON THE MEDICATION. WILL CONTINUE TO MONITOR.
--- NOTE | 2025-08-25 14:17 | PN ---
INFECTIOUS DISEASE PROGRESS NOTE Date of Service: Aug 25, 2025 SUBJECTIVE: From Infectious Disease standpoint, no need for antibiotics on discharge. PHYSICAL EXAM EYES: Anicteric. Pupils equal and reactive. HENT: No oral thrush seen, moist Oral mucosa. NECK: Supple, no JVD or thyromegaly. LUNGS: Good air entry. No rales, no rhonchi. CARDIOVASCULAR: S1, S2 regular. No murmur heard. ABDOMEN: Soft, non tender, bowel sounds present. Left Perisplenic abscess percutaneous drainage catheter. Right ileostomy. Right cholecystostomy tube. CENTRAL NERVOUS SYSTEM: Awake, alert, oriented x 3. SKIN: No rashes, no swelling. LYMPHATICS: No peripheral lymphadenopathy. MUSCULOSKELETAL: No joint swelling, erythema or tenderness. EXTREMITIES: No cyanosis or clubbing. BACK: No deformity, no pressure ulcer. GENITOURINARY: No dysuria or hematuria. Vital Sign (Last 12 Hours) 08/25/25 08/25/25 08/25/25 08/25/25 04:52 07:45 10:00 11:19 Temp 97.9 97.5 97.5 Pulse 92 94 98 Resp 18 18 19 B/P (MAP) 108/71 118/77 129/82 Pulse Ox 98 97 94 98 O2 Delivery Room Air Room Air Room Air* Room Air O2 Flow Rate 0 FiO2 21 21 Intake & Output (last 24hrs) 08/24/25 08/24/25 08/25/25 15:00 23:00 07:00 Intake Total 420 ml 800.0 ml 50.0 ml Output Total 1250 ml 1310 ml Balance 420 ml -450.0 ml -1260.0 ml LABS: Laboratory: Test 08/25/25 10:44 08/25/25 03:46 08/24/25 05:21 Range/Units Whole Blood Glucose 136 H 70-110 MG/DL White Blood Count 6.8 4.8-10.8 K/uL Red Blood Count 4.47 4.00-5.50 MIL/uL Hemoglobin 13.2 12.0-16.0 g/dL Hematocrit 40.0 36-48 % Mean Corpuscular Volume 89.5 79-99 fL Mean Corpuscular Hemoglobin 29.5 27.0-33.0 pg Mean Corpuscular Hemoglobin Concent 33.0 32.0-36.0 g/dL Red Cell Distribution Width 17.1 H 11.0-15.5 % Platelet Count 242 130-400 K/uL Mean Platelet Volume 9.4 7.5-10.5 fL Nucleated Red Blood Cells 0.0 0.0-0.19 % Sodium Level 126 L 136-145 mmol/L Potassium Level 4.8 3.5-5.1 mmol/L Chloride Level 98 L 101-111 mmol/L Carbon Dioxide Level 15 L 21-32 mmol/L Blood Urea Nitrogen 18 7-18 mg/dL Creatinine 1.0 0.5-1.0 mg/dL Glomerular Filtration Rate Calc 66 >90 mL/min Random Glucose 137 H 70-105 mg/dL Total Calcium 10.1 8.5-10.1 mg/dL Total Bilirubin 0.7 0.2-1.0 mg/dL Aspartate Amino Transf (AST/SGOT) 52 H 10-37 U/L Alanine Aminotransferase (ALT/SGPT) 22 12-78 U/L Alkaline Phosphatase 227 H 50-136 U/L Total Protein 9.0 H 6.0-8.3 g/dL Albumin 3.1 L 3.5-5.0 g/dL Serum Osmolality 269 L 278-305 mOsm/kg ASSESSMENT: Acute cholecystitis, s/p cholecystostomy tube placement on 08/02/2025. Concern for cholecystostomy tube dislodgement status post cholecystogram with findings of multiple gallstones on 08/09/2025. Perisplenic abscess, s/p CT-guided drainage placement on 08/09/2025. Persistent abdominal pain, s/p EGD with findings acute gastritis. Septic shock, resolved. Possible continues bacterial peritonitis. Generalized peritonitis with ESBL and E coli infection. Infection with multidrug resistant organism. Hypoalbuminemia, improving. Suspected bowel perforation, s/p diagnostic laparoscopy, abdominal washout, ileostomy creation and CHRIS drain placement on 07/21/2025, s/p CHRIS drain removal. Diabetes mellitus. Recent colovesical fistula repair with sigmoid colon resection and anastomosis on 07/09/2025 PLAN: From Infectious Disease standpoint, no need for antibiotics on discharge. This case was reviewed and discussed with my supervising physician Dr. Roger and the above assessment and plan was formulated and agreed upon. ATTESTATION BY PHYSICIAN I have seen and examined the patient. I reviewed the documentation, medical decision making, and treatment plan as noted by the mid-level provider above. I agree with the findings and plan of care. AMIE ROGER MD, [facility] Aug 25, 2025 14:17
--- NOTE | 2025-08-25 14:45 | NUR ---
DRAINS EDUCATED DAUGHTER ON HOW TO FLUSH BOTH KATHLEEN DRAIN AND ACCORDION DRAIN FOR PATIENT BID ORDERED BY MD. DAUGHTER ABLE TO VERBALIZE UNDERSTANDING AND TO DEMONSTRATE HOW TO FLUSH. DR. NAVARRETE PRESENT DURING EDUCATION. ALL QUESTIONS ANSWERED. DAUGHTER STATED NERVOUS TO CONTINUE TO FLUSH AT HOME BUT STATED WILL BE ABLE TO DO IT ON HER OWN. PROVIDED WITH SUPPLIES PRIOR TO DISCHARGE TO HAVE UNTIL ABLE TO PURCHASE HER OWN AFTER DISCHARGE.
--- NOTE | 2025-08-25 15:12 | DS ---
Discharge Summary Assessment/Plan: ASSESSMENT: Suspected Bowel Perforation/ Anastomotic Leak POA Acute cholecystitis, not POA s/p Cholecystotomy tube placement 08/02/2025 Bilious peritonitis s/p Diagnostic laparoscopy, abdominal washout, drain placement and diverting loop ileostomy creation Perisplenic and infrasplenic fluid collection with splenomegaly - suspected abscess s/p drainage with catheter placement Hyponatremia, resolved Bacterial peritonitis [ESBL Ecoli], resolved Cholelithiasis Atrophic vaginitis Hyperkalemia, resolved Iron Deficiency anemia, POA Diabetes Mellitus Type 2 POA Acute Kidney Injury POA, resolved Septic Shock POA, resolved Cirrhosis of liver POA Esophageal Varices Recent Robotic takedown of splenic flexure mobilization, robotic takedown of colovesical fistula with sigmoid colectomy and end-to-end anastomosis surgery PLAN: Bilious peritonitis status post Diagnostic laparoscopy, abdominal washout, drain placement and diverting loop ileostomy creation -Continue close monitoring of the patient -continue physical therapy -No output in CHRIS drain. Follow up with surgery regarding CHRIS drain removal. -Continue Zosyn [day 35] and fluconazole [day 35]. -Probiotics and Fibers have been added for bloating. -Continue Protonix 40mg IV BID - Continue Montague 5 mg q.4h p.r.n.,for pain management - As per surgery, continue methocarbamol and gabapentin. Perisplenic and infrasplenic fluid collection with splenomegaly * CT scan showed perisplenic and infrasplenic fluid collection measuring 6.0 x 6.1 x 8.9 cm, splenomegaly, with spleen measuring 15.2 cm * IR drained the perisplenic and intra splenic fluid with placement of drainage catheter. * A repeat CT scan still showed persistent inferior splenic fluid collection and recommended continuing the drainage catheter and daily flushes * Cultures resulted in now growth * Continue Zosyn and fluconazole Bacterial Peritonitis, resolved * Post Surgical patient with Bacterial peritonitis positive for ESBL * Culture and sensitivity shows susceptibility to Zosyn, Gentamicin and Meropenem. * Likely secondary to post-operative intraabdominal infection with risk of ongoing contamination. * Currently patient is on Zosyn (Day 35) Cholelithiasis * Patient complained of upper abdominal pain * Ultrasound abdomen showed: Cirrhotic-appearing liver * Cholelithiasis and biliary sludge with gallbladder distension and Small volume ascites. * Hida scan showed acute cholecystitis. * IR did a Fluoroscopy and ultrasound-guided placement of cholecystotomy tube and cholecystogram on 08/02/2025. * IR evaluated patient in the cath lab manager for cholecystostomy tube placement. Patient was found to have normally positioned tube with some stones for which the tube was flushed.. Small Bowel Obstruction (Resolved) * Abdominal Xray showed: Dilated small bowel loops are seen in mid abdomen * Pain management(avoid excess opioids if ileus is suspected) * Monitor for resolution vs progression of Ileus/obstruction. 07/29/25 Bowel Perforation, Dehiscence of the anastomosis - Patient had repair of colovesicular fistula with sigmoid colon resection and anastomosis on 07/09/25. - CT abdominal pelvis w/contrast done on 07/20/2025 showed Free air in the upper abdomen is seen, suggesting perforated bowel vs post surgical changes. No obstruction. - underwent Diagnostic laparoscopy, abdominal washout, drain placement and diverting loop ileostomy creation for biliary peritonitis Iron Deficiency anemia * Hemoglobin today is 9.6. * Anemia panel has been ordered. Results showed Iron 24L, %sat 16.3 and TIBC 147L. 07/30/25 * Received 2 doses of Iron sucrose (venofer) so far Recommend trending Hgb and transfuse as needed to goal Hgb >7 Acute Kidney Injury, Resolved * Creatinine improved * Initial FeNA is 0.1 %, probably secondary to dehydration and NSAIDs overuse. * initial Urine sodium is < 13 and urine creatinine is 132.17. * Avoid nephrotoxic agents, eg. NSAIDS. * Weight patient daily. * Monitor intake and output. Supportive measures - Multimodal pain management - Duloxetine started. -Maintain IV fluids, correct electrolytes -Serial abdominal exams -Cutting Inspector on avoidance of NSAIDS and other related triggers. -Monitor Vitals and perform morning labs regularly Continue GI prophylaxis with Pantop Continue DVT prophylaxis with SCDs, we will avoid heparin due to history of allergies to porcine Home Medications: Reported Medications Cyclobenzaprine HCl (Cyclobenzaprine HCl) 5 Mg Tablet, 1 TAB PO TIDP PRN for muscle spasms for 10 Days, #30 TAB 0 Refills 07/21/25 Propranolol HCl (Propranolol HCl) 10 Mg Tablet, 2 TAB PO BID for 30 Days, #60 TAB 0 Refills 07/21/25 Acetaminophen with Codeine (Acetaminophen-Cod #3 Tablet) 300 Mg-30 Mg Tablet, 1 TAB PO Q6HPRN PRN for pain for 7 Days, #28 TAB 0 Refills 07/21/25 Acetaminophen with Codeine (Acetaminophen-Cod #3 Tablet) 300 Mg-30 Mg Tablet, 1 TAB PO [id number] PRN for pain for 30 Days, #60 TAB 0 Refills 07/21/25 Doxycycline Hyclate (Doxycycline Hyclate) 100 Mg Capsule, 100 CAP PO BID for 10 Days, #20 CAP 0 Refills 07/21/25 Ibuprofen (Ibuprofen 800 mg Tab) 800 Mg Tab, 1 TAB PO TID for pain for 10 Days, #30 TAB 0 Refills 07/21/25 Ondansetron HCl (Ondansetron HCl) 4 Mg Tablet, 1 TAB PO Q6HPRN PRN for nausea/vomiting, #10 TAB 0 Refills 07/21/25 Pantoprazole Sodium (Pantoprazole Sodium) 40 Mg Tablet.dr, 40 MG PO BID, TAB 07/02/25 Iron Fum & P/FA/Vit B & C No.9 (Integra Plus Capsule) 125 Mg Iron-1 Mg Capsule, 1 EACH PO HS, CAP 07/02/25 Medroxyprogesterone Acetate (Provera) 10 Mg Tablet, 10 MG PO DAILY, TAB 07/02/25 Metformin HCl (Metformin HCl) 500 Mg Tablet, 500 MG PO BID, TAB 07/02/25 Montelukast Sodium (Montelukast Sodium) 10 Mg Tablet, 10 MG PO HS, TAB 07/02/25 Pravastatin Sodium (Pravastatin Sodium) 10 Mg Tablet, 10 MG PO HS, TAB 07/02/25 Cholecalciferol (Vitamin D3) (Vitamin D3) 50 Mcg (2000 Unit) Capsule, 50 MCG PO DAILY, CAP 07/02/25 FE BRODY MD Aug 25, 2025 15:12
--- NOTE | 2025-08-25 15:29 | PN ---
This is a 55-year-old female status post laparoscopic washout and loop ileostomy Interval history: This 55-year-old female seen in her room resting Patient tolerating diet No significant pain reported Percutaneous drain with a some output being flush by family Family has been instructed on all wound care and drain care Labs and vitals stable Physical exam General: Awake alert and oriented Heart: Regular rate and rhythm} Lungs: Clear to auscultation no distress Abdomen: [Soft, nontender, nondistended cholecystostomy tube in place percutaneous drain in place Assessment : This is a 55-year-old female status post laparoscopic washout and loop ileostomy Plan: From surgical standpoint patient to be cleared for discharge today Family to be instructed again on drain care as well as ostomy care Patient encouraged to increase protein intake once discharge Continue with physical activity as tolerated with no heavy lifting Follow up with Dr. Gann within one week Surgical case has been discussed with my supervising physician in the above plan was formulated and agreed upon We appreciate the hospitalist team for us to participate in patient's care. Greater than 45 minutes of time spent patient, reviewing chart, working on documentation Vitals/Labs Vital Signs Date Time Temp Pulse Resp B/P (MAP) Pulse Ox O2 Delivery O2 Flow Rate FiO2 08/25/25 11:19 97.5 98 19 129/82 98 Room Air 08/25/25 10:00 0 21 Laboratory Tests 08/25/25 03:46 Medications Current Medications Sodium Chloride 1,000 ml @ 0 mls/hr ONCE ONCE IV; Start 07/20/25 at 18:30; Stop 07/20/25 at 18:31; Status DC Piperacillin Sod/ Tazobactam Sod 50 ml @ 200 mls/hr ONCE STAT IVPB Last administered on 07/20/25at 20:32; Start 07/20/25 at 19:15; Stop 07/20/25 at 19:29; Status DC Sodium Chloride 2,109 ml @ 703 mls/hr ONCE ONCE IV Last administered on 07/20/25at 20:28; Start 07/20/25 at 19:30; Stop 07/20/25 at 22:29; Status DC Iohexol 75 ml STK-MED ONCE IV; Start 07/20/25 at 20:31; Stop 07/20/25 at 20:31; Status DC Vancomycin HCl 1 gm ONCE STAT IV Last administered on 07/20/25at 22:06; Start 07/20/25 at 21:23; Stop 07/20/25 at 21:26; Status DC Morphine Sulfate 4 mg ONCE ONCE IVP Last administered on 07/20/25at 23:15; Start 07/20/25 at 23:30; Stop 07/20/25 at 23:31; Status DC Ondansetron HCl 4 mg ONCE ONCE IVP Last administered on 07/20/25at 23:14; Start 07/20/25 at 23:30; Stop 07/20/25 at 23:31; Status DC Norepinephrine 250 ml @ 0 mls/hr PROTOCOL IV Last administered on 07/21/25at 10:56; Start 07/20/25 at 23:30; Stop 08/03/25 at 08:27; Status DC Piperacillin Sod/ Tazobactam Sod 3.375 gm Q12H IV Last administered on 07/30/25at 23:55; Start 07/21/25 at 00:00; Stop 07/31/25 at 00:00; Status DC Acetaminophen 650 mg Q6H PRN RC; Start 07/21/25 at 00:00; Stop 07/27/25 at 16:22; Status DC Pantoprazole Sodium 40 mg DAILY IV Last administered on 07/26/25at 08:55; Start 07/21/25 at 09:00; Stop 07/26/25 at 09:31; Status DC Ondansetron HCl 4 mg Q6H PRN IV; Start 07/21/25 at 00:00; Stop 07/21/25 at 13:18; Status DC Morphine Sulfate 2 mg Q4H PRN IVP Last administered on 07/21/25at 04:46; Start 07/21/25 at 00:30; Stop 07/21/25 at 13:18; Status DC Lactated Ringer's 1,000 ml @ 75 mls/hr [id number] IV Last administered on 07/21/25at 02:57; Start 07/21/25 at 00:00; Stop 07/21/25 at 13:17; Status DC Insulin Human Regular INSULIN SLIDING SCAL... ACHS SQ Last administered on 08/18/25at 17:31; Start 07/21/25 at 07:30; Stop 08/20/25 at 07:29; Status DC Vasopressin 20 units/Sodium Chloride 100 ml @ 0 mls/hr PROTOCOL IV Last administered on 07/21/25at 00:10; Start 07/21/25 at 00:30; Stop 08/03/25 at 08:27; Status DC Vasopressin 20 units STK-MED ONCE .ROUTE; Start 07/21/25 at 00:10; Stop 07/21/25 at 00:11; Status DC Magnesium Sulfate 50 ml @ 0 mls/hr PROTOCOL PRN IV Last administered on 08/01/25at 06:05; Start 07/21/25 at 07:00; Stop 08/20/25 at 06:59; Status DC Acetaminophen 100 ml @ As Directed STK-MED ONCE .ROUTE; Start 07/21/25 at 09:42; Stop 07/21/25 at 09:42; Status DC Famotidine 20 mg STK-MED ONCE IV; Start 07/21/25 at 09:42; Stop 07/21/25 at 09:42; Status DC Albumin Human 500 ml @ As Directed STK-MED ONCE IV; Start 07/21/25 at 09:45; Stop 07/21/25 at 09:45; Status DC Phenylephrine HCl 10 mg STK-MED ONCE IV; Start 07/21/25 at 09:48; Stop 07/21/25 at 09:48; Status DC Dexamethasone Sodium Phosphate 10 mg STK-MED ONCE .ROUTE; Start 07/21/25 at 09:52; Stop 07/21/25 at 09:52; Status DC Ondansetron HCl 4 mg STK-MED ONCE .ROUTE; Start 07/21/25 at 09:52; Stop 07/21/25 at 09:52; Status DC Lidocaine HCl 100 mg STK-MED ONCE .ROUTE; Start 07/21/25 at 09:52; Stop 07/21/25 at 09:52; Status DC Succinylcholine Chloride 200 mg STK-MED ONCE .ROUTE; Start 07/21/25 at 09:53; Stop 07/21/25 at 09:53; Status DC Glycopyrrolate 1 mg STK-MED ONCE .ROUTE; Start 07/21/25 at 09:53; Stop 07/21/25 at 09:53; Status DC Fentanyl Citrate 100 mcg STK-MED ONCE .ROUTE; Start 07/21/25 at 09:54; Stop 07/21/25 at 09:54; Status DC Propofol 200 mg STK-MED ONCE IV; Start 07/21/25 at 09:54; Stop 07/21/25 at 09:54; Status DC Neostigmine Methylsulfate 10 mg STK-MED ONCE IV; Start 07/21/25 at 09:54; Stop 07/21/25 at 09:54; Status DC Rocuronium [place] 50 mg STK-MED ONCE .ROUTE; Start 07/21/25 at 09:54; Stop 07/21/25 at 09:54; Status DC Ketamine HCl 50 mg STK-MED ONCE .ROUTE; Start 07/21/25 at 09:55; Stop 07/21/25 at 09:56; Status DC Epinephrine HCl 1 mg STK-MED ONCE .ROUTE; Start 07/21/25 at 10:03; Stop 07/21/25 at 10:03; Status DC Midazolam HCl 2 mg STK-MED ONCE .ROUTE; Start 07/21/25 at 10:05; Stop 07/21/25 at 10:05; Status DC Indocyanine Green 25 mg STK-MED ONCE IJ; Start 07/21/25 at 10:49; Stop 07/21/25 at 10:49; Status DC Ephedrine Sulfate 50 mg STK-MED ONCE .ROUTE; Start 07/21/25 at 11:17; Stop 07/21/25 at 11:17; Status DC Bupivacaine HCl 5 mg STK-MED ONCE .ROUTE Last administered on 07/21/25at 12:14; Start 07/21/25 at 11:49; Stop 07/21/25 at 11:49; Status DC Sodium Bicarbonate 200 ml @ As Directed STK-MED ONCE .ROUTE; Start 07/21/25 at 12:19; Stop 07/21/25 at 12:19; Status DC Fentanyl Citrate 100 mcg STK-MED ONCE .ROUTE; Start 07/21/25 at 12:23; Stop 07/21/25 at 12:23; Status DC Phytonadione 10 mg STK-MED ONCE .ROUTE; Start 07/21/25 at 13:05; Stop 07/21/25 at 13:05; Status DC Lactated Ringer's 1,000 ml @ 75 mls/hr [id number] IV Last administered on 07/24/25at 09:27; Start 07/21/25 at 13:30; Stop 07/24/25 at 11:09; Status DC Morphine Sulfate 4 mg Q3H PRN IV Last administered on 07/26/25at 10:51; Start 07/21/25 at 13:30; Stop 07/26/25 at 16:29; Status DC Ondansetron HCl 4 mg Q4H PRN IVP Last administered on 08/16/25at 10:23; Start 07/21/25 at 13:30; Stop 08/16/25 at 17:50; Status DC Fentanyl Citrate 100 mcg STK-MED ONCE .ROUTE; Start 07/21/25 at 13:26; Stop 07/21/25 at 13:26; Status DC Sodium Bicarbonate 150 meq/Sodium Chloride 1,150 ml @ 0 mls/hr Q0M IVP; Start 07/21/25 at 14:00; Stop 07/26/25 at 09:31; Status DC Sodium Bicarbonate 100 meq ONCE ONCE IV; Start 07/21/25 at 14:00; Stop 07/21/25 at 14:23; Status DC Metronidazole/ Sodium Chloride 500 mg Q8H IV; Start 07/21/25 at 14:00; Stop 07/21/25 at 13:40; Status DC Fluconazole/ Sodium Chloride 200 mg Q24H IVPB Last administered on 08/19/25at 20:18; Start 07/21/25 at 21:00; Stop 08/20/25 at 20:59; Status DC Pharmacy Profile Note 1 each ONCE MISC; Start 07/21/25 at 15:30; Stop 07/21/25 at 15:16; Status DC Thiamine HCl 100 mg/Sodium Chloride 50 ml @ 100 mls/hr Q24H IM; Start 07/21/25 at 15:30; Stop 07/21/25 at 16:25; Status DC Sodium Bicarbonate 100 meq ONCE ONCE IV Last administered on 07/21/25at 16:42; Start 07/21/25 at 16:30; Stop 07/21/25 at 16:31; Status DC Thiamine HCl 100 mg DAILY IVP Last administered on 08/21/25at 08:15; Start 07/22/25 at 21:00; Stop 08/21/25 at 20:59; Status DC Diatrizoate Meglum/ Diatrizoate Sod 30 ml STK-MED ONCE .ROUTE; Start 07/23/25 at 15:13; Stop 07/23/25 at 15:13; Status DC Potassium Chloride 100 ml @ 100 mls/hr AD PRN IV Last administered on 07/30/25at 06:23; Start 07/24/25 at 08:30; Stop 08/23/25 at 08:29; Status DC Potassium Chloride 20 meq AD PRN PO Last administered on 07/31/25at 08:15; Start 07/24/25 at 08:30; Stop 08/23/25 at 08:29; Status DC Potassium Chloride 20 meq AD PRN PO Last administered on 07/27/25at 20:33; Start 07/24/25 at 08:30; Stop 08/23/25 at 08:29; Status DC Hydromorphone HCl 0.5 mg Q4H PRN IVP Last administered on 07/29/25at 08:22; Start 07/24/25 at 10:00; Stop 07/29/25 at 09:59; Status DC Spironolactone 25 mg BID PO Last administered on 07/26/25at 08:56; Start 07/25/25 at 21:00; Stop 07/26/25 at 09:01; Status DC Albumin Human 100 ml @ 0 mls/hr ONCE ONCE IV Last administered on 07/25/25at 17:05; Start 07/25/25 at 10:30; Stop 07/25/25 at 10:31; Status DC Albumin Human 100 ml @ 0 mls/hr ONCE IV Last administered on 07/25/25at 13:43; Start 07/25/25 at 12:00; Stop 07/26/25 at 11:59; Status DC Cyclobenzaprine HCl 5 mg TID PO Last administered on 07/26/25at 14:19; Start 07/25/25 at 14:00; Stop 07/26/25 at 14:00; Status DC Furosemide 20 mg DAILY PO Last administered on 08/02/25at 09:42; Start 07/25/25 at 11:00; Stop 08/02/25 at 11:53; Status DC Pantoprazole Sodium 40 mg BID IV Last administered on 08/19/25at 20:16; Start 07/26/25 at 21:00; Stop 08/20/25 at 08:59; Status DC Psyllium Hydrophilic Mucilloid 1 tbs BID PO Last administered on 08/25/25at 09:12; Start 07/26/25 at 21:00; Stop 08/25/25 at 20:59 Lactobacillus Rhamnosus 1 each DAILY20 PO Last administered on 08/24/25at 20:17; Start 07/26/25 at 20:00; Stop 08/25/25 at 19:59 Iron Sucrose 200 mg ONCE ONCE IV Last administered on 07/26/25at 14:19; Start 07/26/25 at 14:00; Stop 07/26/25 at 14:01; Status DC Lidocaine 1 patch DAILY TP Last administered on 08/21/25at 08:17; Start 07/28/25 at 09:00; Stop 08/27/25 at 08:59 Simethicone 80 mg Q6H6 PO Last administered on 08/25/25at 11:48; Start 07/27/25 at 12:00; Stop 08/26/25 at 11:59 Acetaminophen 500 mg Q6H6 PRN PO; Start 07/27/25 at 16:30; Stop 08/07/25 at 12:15; Status DC Lidocaine 1 patch ONCE ONCE TP Last administered on 07/27/25at 19:25; Start 07/27/25 at 19:30; Stop 07/27/25 at 19:31; Status DC Albumin Human 50 ml @ 0 mls/hr AD ONCE IV Last administered on 07/28/25at 17:44; Start 07/28/25 at 15:30; Stop 07/28/25 at 15:31; Status DC Albumin Human 100 ml @ 0 mls/hr AD ONCE IV Last administered on 07/29/25at 14:26; Start 07/29/25 at 12:30; Stop 07/29/25 at 12:31; Status DC Hydromorphone HCl 0.5 mg Q4H PRN IVP Last administered on 08/03/25at 13:09; Start 07/29/25 at 13:30; Stop 08/03/25 at 13:29; Status DC Gabapentin 100 mg TID PO Last administered on 08/01/25at 20:14; Start 07/29/25 at 14:00; Stop 08/02/25 at 09:21; Status DC Clotrimazole 1 GM BID TP Last administered on 08/25/25at 09:13; Start 07/29/25 at 21:00; Stop 08/28/25 at 20:59 Sucralfate 1 gm ACHS PO Last administered on 08/25/25at 11:48; Start 07/29/25 at 21:00; Stop 08/28/25 at 20:59 Piperacillin Sod/ Tazobactam Sod 3.375 gm Q8H IVPB Last administered on 08/10/25at 04:05; Start 07/31/25 at 11:30; Stop 08/10/25 at 11:29; Status DC Sodium Chloride 50 ml AD IV; Start 07/31/25 at 11:30; Stop 07/31/25 at 11:12; Status DC Iron Sucrose 300 mg/Sodium Chloride 250 ml @ 83 mls/hr ONCE ONCE IV Last administered on 07/31/25at 13:36; Start 07/31/25 at 12:00; Stop 07/31/25 at 15:00; Status DC Fentanyl 25 mcg Q72H TD; Start 07/31/25 at 14:30; Stop 07/31/25 at 14:44; Status DC Acetaminophen/ Hydrocodone Bitart 1 tab Q4H PRN PO Last administered on 08/05/25at 14:57; Start 07/31/25 at 16:30; Stop 08/05/25 at 16:29; Status DC Chromium/Copper/ Manganese/Zinc 3 ml/Multivitamins/ Minerals 10 ml/ Amino Acids/ Electrolytes/ Dextrose 2,000 ml @ 80 mls/hr ONCE ONCE IV Last administered on 08/01/25at 20:25; Start 08/01/25 at 20:00; Stop 08/02/25 at 20:59; Status DC Albumin Human 100 ml @ 0 mls/hr AD ONCE IV Last administered on 08/02/25at 09:41; Start 08/02/25 at 09:30; Stop 08/02/25 at 09:33; Status DC Lidocaine HCl 20 ml STK-MED ONCE .ROUTE; Start 08/02/25 at 11:24; Stop 08/02/25 at 11:24; Status DC Iohexol 50 ml STK-MED ONCE IV; Start 08/02/25 at 11:24; Stop 08/02/25 at 11:25; Status DC Estrogens Conjugated 1 appl ONCE ONCE VG; Start 08/02/25 at 12:00; Stop 08/02/25 at 12:01; Status DC Fentanyl Citrate 100 mcg STK-MED ONCE .ROUTE; Start 08/02/25 at 11:53; Stop 08/02/25 at 11:53; Status DC Midazolam HCl 2 mg STK-MED ONCE .ROUTE; Start 08/02/25 at 11:54; Stop 08/02/25 at 11:54; Status DC Midazolam HCl 2 mg STK-MED ONCE .ROUTE; Start 08/02/25 at 12:15; Stop 08/02/25 at 12:16; Status DC Multivitamins/ Minerals 10 ml/ Chromium/Copper/ Manganese/Zinc 3 ml/Amino Acids/ Electrolytes/ Dextrose 2,000 ml @ 80 mls/hr ONCE ONCE IV Last administered on 08/02/25at 21:08; Start 08/02/25 at 20:00; Stop 08/03/25 at 18:39; Status DC Estrogens Conjugated 1 appl ONCE ONCE VG Last administered on 08/02/25at 18:47; Start 08/02/25 at 18:30; Stop 08/02/25 at 18:31; Status DC Albumin Human 50 ml @ 0 mls/hr Q12H IV; Start 08/02/25 at 18:30; Stop 08/02/25 at 20:04; Status DC Albumin Human 50 ml @ 100 mls/hr Q12H IV Last administered on 08/05/25at 10:12; Start 08/02/25 at 21:30; Stop 08/05/25 at 09:59; Status DC Hydromorphone HCl 0.5 mg Q4H PRN IVP Last administered on 08/07/25at 05:09; Start 08/03/25 at 18:00; Stop 08/07/25 at 10:03; Status DC Chromium/Copper/ Manganese/Zinc 3 ml/Multivitamins/ Minerals 10 ml/ Amino Acids/ Electrolytes/ Dextrose 2,000 ml @ 80 mls/hr ONCE ONCE IV Last administered on 08/03/25at 21:51; Start 08/03/25 at 20:00; Stop 08/04/25 at 12:47; Status DC Chromium/Copper/ Manganese/Zinc 3 ml/Multivitamins/ Minerals 10 ml/ Amino Acids/ Electrolytes/ Dextrose 2,000 ml @ 80 mls/hr ONCE ONCE IV Last administered on 08/04/25at 21:54; Start 08/04/25 at 21:00; Stop 08/05/25 at 21:59; Status DC Metoclopramide HCl 5 mg BID IVP Last administered on 08/25/25at 09:12; Start 08/04/25 at 21:00; Stop 09/03/25 at 20:59 Iohexol 75 ml STK-MED ONCE IV; Start 08/04/25 at 14:27; Stop 08/04/25 at 14:26; Status DC Propofol 200 mg STK-MED ONCE IV; Start 08/05/25 at 12:54; Stop 08/05/25 at 12:54; Status DC Lidocaine HCl 100 mg STK-MED ONCE .ROUTE; Start 08/05/25 at 12:54; Stop 08/05/25 at 12:55; Status DC Pantoprazole Sodium 40 mg BID IVP Last administered on 08/05/25at 20:25; Start 08/05/25 at 21:00; Stop 08/06/25 at 08:39; Status DC Multivitamins/ Minerals 10 ml/ Amino Acids/ Electrolytes/ Dextrose 2,000 ml @ 80 mls/hr ONCE ONCE IV Last administered on 08/06/25at 04:53; Start 08/06/25 at 05:00; Stop 08/07/25 at 05:59; Status DC Pharmacy Profile Note 1 each ONCE MISC; Start 08/06/25 at 16:00; Stop 08/07/25 at 07:07; Status DC Lidocaine HCl/Al Hydroxide/Mg Hydroxide/ Dicyclomine HCl 20ML OR AD ONCE PO Last administered on 08/06/25at 16:45; Start 08/06/25 at 16:30; Stop 08/07/25 at 16:29; Status DC Multivitamins/ Minerals 10 ml/ Amino Acids/ Electrolytes/ Dextrose 2,000 ml @ 80 mls/hr ONCE ONCE IV; Start 08/07/25 at 07:00; Stop 08/07/25 at 06:32; Status DC Multivitamins/ Minerals 10 ml/ Chromium/Copper/ Manganese/Zinc 3 ml/Amino Acids/ Electrolytes/ Dextrose 2,000 ml @ 80 mls/hr ONCE ONCE IV Last administered on 08/07/25at 06:41; Start 08/07/25 at 07:00; Stop 08/08/25 at 04:36; Status DC Acetaminophen 500 mg Q6H6 PRN PO; Start 08/07/25 at 10:00; Stop 08/07/25 at 10:03; Status DC Hydromorphone HCl 0.5 mg Q4H PRN IVP Last administered on 08/10/25at 20:27; Start 08/07/25 at 10:00; Stop 08/11/25 at 10:32; Status DC Acetaminophen/ Hydrocodone Bitart 1 tab Q4H PRN PO Last administered on 08/12/25at 00:46; Start 08/07/25 at 12:30; Stop 08/12/25 at 12:29; Status DC Chromium/Copper/ Manganese/Zinc 3 ml/Amino Acids/ Electrolytes/ Dextrose 2,000 ml @ 80 mls/hr ONCE ONCE IV; Start 08/08/25 at 05:00; Stop 08/08/25 at 04:59; Status DC Chromium/Copper/ Manganese/Zinc 3 ml/Amino Acids/ Electrolytes/ Dextrose 2,000 ml @ 80 mls/hr ONCE ONCE IV Last administered on 08/08/25at 05:51; Start 08/08/25 at 07:00; Stop 08/09/25 at 05:18; Status DC Chromium/Copper/ Manganese/Zinc 3 ml/Amino Acids/ Electrolytes/ Dextrose 2,000 ml @ 80 mls/hr ONCE ONCE IV Last administered on 08/09/25at 06:11; Start 08/09/25 at 07:00; Stop 08/10/25 at 07:59; Status DC Lidocaine HCl 50 ml STK-MED ONCE .ROUTE; Start 08/09/25 at 09:59; Stop 08/09/25 at 09:59; Status DC Iohexol 50 ml STK-MED ONCE IV; Start 08/09/25 at 09:59; Stop 08/09/25 at 09:59; Status DC Sodium Chloride 10 ml Q8H IJ Last administered on 08/25/25at 09:13; Start 08/09/25 at 11:00; Stop 09/08/25 at 10:59 Fentanyl 12 mcg Q72H TD; Start 08/09/25 at 13:00; Stop 08/09/25 at 15:19; Status DC Fentanyl Citrate 100 mcg STK-MED ONCE .ROUTE Last administered on 08/09/25at 16:15; Start 08/09/25 at 13:17; Stop 08/09/25 at 13:17; Status DC Midazolam HCl 2 mg STK-MED ONCE .ROUTE Last administered on 08/09/25at 16:15; Start 08/09/25 at 13:17; Stop 08/09/25 at 13:18; Status DC Fentanyl 12 mcg Q72H TD Last administered on 08/09/25at 15:38; Start 08/09/25 at 15:30; Stop 08/11/25 at 10:32; Status DC Chromium/Copper/ Manganese/Zinc 3 ml/Multivitamins/ Minerals 10 ml/ Amino Acids/ Electrolytes/ Dextrose 2,000 ml @ 80 mls/hr ONCE ONCE IV Last administered on 08/10/25at 09:54; Start 08/10/25 at 08:30; Stop 08/11/25 at 09:29; Status DC Piperacillin Sod/ Tazobactam Sod 3.375 gm Q8H IVPB Last administered on 08/20/25at 04:32; Start 08/10/25 at 13:00; Stop 08/20/25 at 12:59; Status DC Fentanyl 25 mcg Q72H TD; Start 08/12/25 at 15:30; Stop 08/12/25 at 16:00; Status DC Hydromorphone HCl 0.5 mg Q6H PRN IVP Last administered on 08/15/25at 16:03; Start 08/11/25 at 11:00; Stop 08/16/25 at 10:59; Status DC Methocarbamol 500 mg BID PO Last administered on 08/25/25at 09:12; Start 08/11/25 at 16:00; Stop 09/10/25 at 15:59 Gabapentin 100 mg TID PO Last administered on 08/25/25at 14:06; Start 08/11/25 at 21:00; Stop 09/10/25 at 20:59 Multivitamins/ Minerals 10 ml/ Chromium/Copper/ Manganese/Zinc 3 ml/Amino Acids/ Electrolytes/ Dextrose 2,000 ml @ 80 mls/hr ONCE ONCE IV Last administered on 08/12/25at 22:38; Start 08/12/25 at 20:00; Stop 08/13/25 at 11:49; Status DC Fat Emulsion Intravenous 250 ml @ 42 mls/hr DAILY10 IV Last administered on 08/18/25at 09:57; Start 08/13/25 at 10:00; Stop 08/19/25 at 10:44; Status DC Fentanyl 25 mcg Q72H TD Last administered on 08/16/25at 00:02; Start 08/12/25 at 21:00; Stop 08/17/25 at 20:59; Status DC Acetaminophen/ Hydrocodone Bitart 1 tab Q4H PRN PO Last administered on 08/17/25at 10:17; Start 08/12/25 at 16:30; Stop 08/17/25 at 16:29; Status DC Home Med HS TD; Start 08/12/25 at 21:00; Stop 08/21/25 at 00:24; Status DC Multivitamins/ Minerals 10 ml/ Chromium/Copper/ Manganese/Zinc 3 ml/Amino Acids/ Electrolytes/ Dextrose 2,000 ml @ 80 mls/hr ONCE ONCE IV Last administered on 08/13/25at 20:15; Start 08/13/25 at 20:00; Stop 08/14/25 at 11:29; Status DC Multivitamins/ Minerals 10 ml/ Amino Acids/ Electrolytes/ Dextrose 2,000 ml @ 80 mls/hr ONCE ONCE IV Last administered on 08/14/25at 21:37; Start 08/14/25 at 20:00; Stop 08/15/25 at 20:59; Status DC Duloxetine HCl 30 mg BID PO Last administered on 08/25/25at 09:12; Start 08/15/25 at 21:00; Stop 09/14/25 at 20:59 Ketorolac Tromethamine 15 mg Q8H PRN IM Last administered on 08/16/25at 00:01; Start 08/15/25 at 18:30; Stop 08/16/25 at 06:57; Status DC Pharmacy Profile Note 1 each ONCE MISC; Start 08/16/25 at 16:00; Stop 08/15/25 at 21:12; Status DC Multivitamins/ Minerals 10 ml/ Amino Acids/ Electrolytes/ Dextrose 2,000 ml @ 80 mls/hr ONCE ONCE IV Last administered on 08/15/25at 23:25; Start 08/15/25 at 21:00; Stop 08/16/25 at 13:13; Status DC Amino Acids/ Electrolytes/ Dextrose 2,000 ml @ 80 mls/hr ONCE ONCE IV; Start 08/16/25 at 13:30; Stop 08/17/25 at 01:21; Status DC Ondansetron HCl 4 mg Q6H IVP Last administered on 08/25/25at 05:24; Start 08/16/25 at 18:00; Stop 09/15/25 at 17:59 Amino Acids/ Electrolytes/ Dextrose 2,000 ml @ 40 mls/hr ONCE ONCE IV Last administered on 08/17/25at 01:40; Start 08/17/25 at 01:30; Stop 08/19/25 at 10:44; Status DC Acetaminophen/ Hydrocodone Bitart 1 tab Q6H PRN PO Last administered on 08/22/25at 19:25; Start 08/17/25 at 21:30; Stop 08/22/25 at 21:29; Status DC Fluconazole/ Sodium Chloride 100 ml @ 100 mls/hr DAILY IV Last administered on 08/25/25at 09:11; Start 08/20/25 at 22:30; Stop 08/25/25 at 23:00 Piperacillin Sod/ Tazobactam Sod 3.375 gm Q8H IVPB Last administered on 08/23/25at 00:15; Start 08/20/25 at 23:00; Stop 08/23/25 at 06:05; Status DC Sodium Chloride 50 ml AD IV; Start 08/20/25 at 22:30; Stop 08/20/25 at 22:43; Status DC Piperacillin Sod/ Tazobactam Sod 3.375 gm Q8H IVPB Last administered on 08/25/25at 09:12; Start 08/23/25 at 08:00; Stop 09/02/25 at 07:59 Acetaminophen/ Hydrocodone Bitart 1 tab ONCE ONCE PO Last administered on 08/23/25at 21:19; Start 08/23/25 at 21:00; Stop 08/23/25 at 21:01; Status DC Sodium Chloride 1,000 mg DAILY PO Last administered on 08/25/25at 09:12; Start 08/24/25 at 13:30; Stop 09/23/25 at 13:29 Acetaminophen/ Hydrocodone Bitart 1 tab ONCE ONCE PO Last administered on 08/24/25at 20:49; Start 08/24/25 at 21:00; Stop 08/24/25 at 21:01; Status DC BENEDICTO OBRIEN Jr. PAC Aug 25, 2025 15:29
--- NOTE | 2025-08-25 15:40 | NUR ---
PICC LINE PICC LINE DISCONTINUED BY BECKY POWERS ORDERED BY . NO S/S OF INFECTION NOTED TO SITE. NO BLEEDING NOTED. COVERED WITH 4X4 AND TEGADERM PRESSURE DRESSING. PATIENT TOLERATED WELL.
--- NOTE | 2025-08-25 17:16 | NUR ---
DISCHARGE DISCHARGE ORDERS OBTAINED FOR PATIENT TO BE DISCHARGED HOME. DISCHARGE INSTRUCTIONS AND DOCUMENTATION GIVEN TO PATIENT AND DAUGHTER AT BEDSIDE. BOTH VOICED UNDERSTANDING. SUPPLIES TO FLUSH DRAINS AND CHANGE ILEOSTOMY GIVEN TO DAUGHTER. RX FOR TYLENOL 3, ZOFRAN AND ILEOSTOMY SUPPLIES ALSO PROVIDED TO DAUGHTER TO TAKE TO PREFERRED PHARMACY. ALL QUESTIONS ANSWERED REGARDING DISCHARGE AND FOLLOW UP APPOINTMENTS. CONTACT INFORMATION FOR SPECIALISTS GIVEN IN DISCHARGE FOR FUTURE REFERENCE. BANDS REMOVED.
--- NOTE | 2025-08-25 18:00 | NUR ---
DISCHARGE PATIENT LEFT VIA WHEELCHAIR, ACCOMPANIED BY DAUGHTER. NO S/S OF DISTRESS NOTED.
== END 2025-08-25 18:00 | disposition home or self-care (01) | DRG 710 ==
LOC: EDH 18:07 → EDHIP 23:08 → 2BH 07-21 01:55 → 4AH 07-25 12:37 → 4BH 08-24 08:41
PROVIDERS: ADMIT Internal Medicine; ATTEND Internal Medicine
PROC: B548ZZA Ultrasonography of Superior Vena Cava, Guidance (ICD-10-PCS; 2025-07-21)
PROC: 0D1B4Z4 Bypass Ileum to Cutaneous, Percutaneous Endoscopic Approach (ICD-10-PCS; principal; 2025-07-21 11:30)
PROC: 02HV33Z Insertion of Infusion Device into Superior Vena Cava, Percutaneous Approach (ICD-10-PCS; 2025-07-21 11:30)
PROC: 0F9440Z Drainage of Gallbladder with Drainage Device, Percutaneous Endoscopic Approach (ICD-10-PCS; 2025-08-02)
PROC: BF121ZZ Fluoroscopy of Gallbladder using Low Osmolar Contrast (ICD-10-PCS; 2025-08-02)
PROC: 02HV33Z Insertion of Infusion Device into Superior Vena Cava, Percutaneous Approach (ICD-10-PCS; 2025-08-05)
PROC: 0DB68ZX Excision of Stomach, Via Natural or Artificial Opening Endoscopic, Diagnostic (ICD-10-PCS; 2025-08-05)
PROC: 0DB78ZX Excision of Stomach, Pylorus, Via Natural or Artificial Opening Endoscopic, Diagnostic (ICD-10-PCS; 2025-08-05)
PROC: BF121ZZ Fluoroscopy of Gallbladder using Low Osmolar Contrast (ICD-10-PCS; 2025-08-09)
PROC: 02HV33Z Insertion of Infusion Device into Superior Vena Cava, Percutaneous Approach (ICD-10-PCS; 2025-08-11)
DX: A41.9 Sepsis, unspecified organism (principal); R65.21 Severe sepsis with septic shock; J96.91 Respiratory failure, unspecified with hypoxia; K63.1 Perforation of intestine (nontraumatic); K65.0 Generalized (acute) peritonitis; N17.9 Acute kidney failure, unspecified; I85.10 Secondary esophageal varices without bleeding; E87.1 Hypo-osmolality and hyponatremia; N32.1 Vesicointestinal fistula; K56.609 Unspecified intestinal obstruction, unspecified as to partial versus complete obstruction; J90 Pleural effusion, not elsewhere classified; G30.9 Alzheimer's disease, unspecified; F02.80 Dementia in other diseases classified elsewhere, unspecified severity, without behavioral disturbance, psychotic disturbance, mood disturbance, and anxiety; K74.60 Unspecified cirrhosis of liver; J45.909 Unspecified asthma, uncomplicated; K80.00 Calculus of gallbladder with acute cholecystitis without obstruction; K29.00 Acute gastritis without bleeding; B96.20 Unspecified Escherichia coli [E. coli] as the cause of diseases classified elsewhere; K76.6 Portal hypertension; D50.9 Iron deficiency anemia, unspecified; E11.22 Type 2 diabetes mellitus with diabetic chronic kidney disease; E78.5 Hyperlipidemia, unspecified; E87.20 Acidosis, unspecified; J98.11 Atelectasis; N95.2 Postmenopausal atrophic vaginitis; N18.9 Chronic kidney disease, unspecified; L02.211 Cutaneous abscess of abdominal wall; K82.8 Other specified diseases of gallbladder; K52.9 Noninfective gastroenteritis and colitis, unspecified; I12.9 Hypertensive chronic kidney disease with stage 1 through stage 4 chronic kidney disease, or unspecified chronic kidney disease; E88.09 Other disorders of plasma-protein metabolism, not elsewhere classified; E87.5 Hyperkalemia; K20.90 Esophagitis, unspecified without bleeding; Z16.24 Resistance to multiple antibiotics; Z59.71 Insufficient health insurance coverage; Z51.5 Encounter for palliative care; Z79.891 Long term (current) use of opiate analgesic; Z86.73 Personal history of transient ischemic attack (TIA), and cerebral infarction without residual deficits; Z90.49 Acquired absence of other specified parts of digestive tract; Z79.899 Other long term (current) drug therapy; Z87.440 Personal history of urinary (tract) infections; Z93.3 Colostomy status
CPT/HCPCS: 10030; 36415; 36556; 36569; 43239; 47490; 47531; 71045; 74018; 74150; 74177; 75989; 76700; 77012; 78227; 80048; 80051; 80053; 80076; 81001; 81003; 82140; 82247; 82248; 82435; 82533; 82570; 82607; 82728; 82803; 82947; 82948; 83036; 83540; 83550; 83605; 83690; 83735; 83880; 83930; 83935; 83986; 84100; 84132; 84145; 84295; 84300; 84439; 84443; 84481; 84484; 84550; 85018; 85025; 85027; 85610; 85730; 86140; 86850; 86900; 86901; 87040; 87070; 87071; 87076; 87086; 87186; 87205; 87426; 88305; 88312; 89051; 93005; 96365; 96366; 99152; 99153; 99156; 99285; A4606; A9537; C1769; C1894; G0378; J0169; J0330; J1100; J1171; J1450; J1756; J1815; J1885; J2003; J2250; J2270; J2371; J2405; J2470; J2543; J2704; J2710; J2765; J3010; J3373; J3411; J3430; J3475; J3480; J3490; J7030; J7050; P9045; P9046; P9047; Q9963; Q9967; A4215; A4222; A4223; A4620; A4649; A4930; A6206; C1729; C1750; C1751; G0500; J0665; J1308

== ENCOUNTER 2025-08-29 07:35 | Inpatient (IN) | payer OTHER ==
[2025-08-29] VITALS (42 sets, daily range): BP systolic 80–128; BP diastolic 37–75; PULSE 76–107; RESP 14–27; TEMP 97.7–98.3; O2SAT 98–99
[~2025-08-29] VITALS: Ht 152.4 cm; Wt 63.0 kg
[~2025-08-29 07:35] MED LIST changes: +ACET-2079 PO; +IBUP-2077 PO; -LACT-441 PO; +ONDA-104 PO
[2025-08-29 08:22] LABS: IMMATURE GRANULOCYTE ABSOLUTE 0.10 K/uL (0-1); NUCLEATED RED BLOOD CELLS 0.0 % (0.0-0.19); PLATELET COUNT (AUTO) 377 K/uL (130-400); RED BLOOD CELL COUNT(AUTO) 5.47 MIL/uL (4.00-5.50); RED CELL DISTRIBUTION WIDTH 16.9 % (11.0-15.5); WHITE BLOOD COUNT (AUTO) 10.5 K/uL (4.8-10.8)
--- NOTE | 2025-08-29 08:39 | ERN ---
General Chief Complaint: Nausea,Vomiting,Diarrhea Stated Complaint: N/V Time Seen by MD: 07:53 Source: patient History of Present Illness Initial Comments PATIENT IS IN HIS IS A 55-YEAR-OLD FEMALE COMING IN COMPLAINING OF NAUSEOUSNESS AND VOMITING. PER PATIENT THIS STARTED EARLIER TODAY. SHE DOES HAS A HISTORY OF LIVER CIRRHOSIS AND STATES THAT SHE HAS A ESOPHAGEAL VARICES WHICH WAS BLEEDING LAST TIME. Allergies: Coded Allergies: aspirin (Unverified Allergy, Unknown, 07/02/25) bismuth subsalicylate (Unverified Allergy, Unknown, 07/02/25) pork derived (porcine) (Unverified Allergy, Unknown, 07/02/25) Uncoded Allergies: BISMUTH (Allergy, Unknown, 07/02/25) Home Meds Reported Medications Propranolol HCl (Propranolol HCl) 10 Mg Tablet, 2 TAB PO BID for 30 Days, #60 TAB 0 Refills 07/21/25 Acetaminophen with Codeine (Acetaminophen-Cod #3 Tablet) 300 Mg-30 Mg Tablet, 1 TAB PO Q6HPRN PRN for pain for 7 Days, #28 TAB 0 Refills 07/21/25 Ibuprofen (Ibuprofen 800 mg Tab) 800 Mg Tab, 1 TAB PO TID for pain for 10 Days, #30 TAB 0 Refills 07/21/25 Ondansetron HCl (Ondansetron HCl) 4 Mg Tablet, 1 TAB PO Q6HPRN PRN for naus ea/vomiting, #10 TAB 0 Refills 07/21/25 Pantoprazole Sodium (Pantoprazole Sodium) 40 Mg Tablet.dr, 40 MG PO BID, TAB 07/02/25 Iron Fum & P/FA/Vit B & C No.9 (Integra Plus Capsule) 125 Mg Iron-1 Mg Capsule, 1 EACH PO HS, CAP 07/02/25 Medroxyprogesterone Acetate (Provera) 10 Mg Tablet, 10 MG PO DAILY, TAB 07/02/25 Metformin HCl (Metformin HCl) 500 Mg Tablet, 500 MG PO BID, TAB 07/02/25 Montelukast Sodium (Montelukast Sodium) 10 Mg Tablet, 10 MG PO HS, TAB 07/02/25 Pravastatin Sodium (Pravastatin Sodium) 10 Mg Tablet, 10 MG PO HS, TAB 07/02/25 Cholecalciferol (Vitamin D3) (Vitamin D3) 50 Mcg (2000 Unit) Capsule, 50 MCG PO DAILY, CAP 07/02/25 Discontinued Reported Medications Cyclobenzaprine HCl (Cyclobenzaprine HCl) 5 Mg Tablet, 1 TAB PO TIDP PRN for muscle spasms for 10 Days, #30 TAB 0 Refills 07/21/25 Acetaminophen with Codeine (Acetaminophen-Cod #3 Tablet) 300 Mg-30 Mg Tablet, 1 TAB PO [id number] PRN for pain for 30 Days, #60 TAB 0 Refills 07/21/25 Doxycycline Hyclate (Doxycycline Hyclate) 100 Mg Capsule, 100 CAP PO BID for 10 Days, #20 CAP 0 Refills 07/21/25 Past Medical History Past Medical History: Diabetes-Type II, Hypotension, Liver Disease Medical History Other: ESOPHOGEAL VARICES, SEPSIS Past Surgical History: Other Surgical History Other: BOWEL SURGERY, FISUTLA REPAIR-OSTOMY Female( History) History: Not Applicable ROS Dictation CONSTITUTIONAL: NO CHILLS, NO FEVER, NO WEAKNESS, NO DIAPHORESIS, NO MALAISE. HEAD/FACE: NO SIGNS OF TRAUMA. EENT: NO EYE PAIN, NO BLURRED VISION, NO TEARING, NO DOUBLE VISION, NO EAR PAIN, NO EAR DISCHARGE, NO NOSE PAIN, NO NASAL CONGESTION, NO THROAT PAIN, NO THROAT SWELLING, NO MOUTH PAIN. RESPIRATORY: NO COUGH, NO ORTHOPNEA, NO SOB, NO STRIDOR, NO WHEEZING. CARDIOVASCULAR: NO CHEST PAIN, NO EDEMA, NO PALPITATIONS, NO SYNCOPE. GASTROINTESTINAL/ABDOMINAL: NO ABDOMINAL PAIN, NO CONSTIPATION, NO DIARRHEA, NO NAUSEA, NO VOMITING. GENITOURINARY: NO ABNORMAL DISCHARGE, NO DYSURIA, NO FREQUENT URINATION, NO HEMATURIA. NO COMPLAINTS OF PAIN IN THE GENITALS. MUSCULOSKELETAL: NO BACK PAIN, NO GOUT, NO JOINT PAIN, NO JOINT SWELLING, NO MUSCLE PAIN, NO MUSCLE STIFFNESS, NO NECK PAIN. INTEGUMENTARY: NO CHANGE IN COLOR, NO CHANGE IN HAIR/NAILS, NO DRYNESS, NO LESION, NO LUMPS, NO RASH. NEUROLOGICAL/PSYCH: NO ANXIETY, NOT DEPRESSED, NO EMOTIONAL PROBLEM, NO HEADACHE, NO NUMBNESS, NO PRE-EXISTING DEFICIT, NO HISTORY OF SEIZURES, NO TREMORS, NO WEAKNESS. HEMATOLOGIC/LYMPHATIC: NOT ANEMIC, NO HISTORY OF BLOOD CLOTS, NO APPARENT BLEEDING, NO BRUISING, GLANDS NOT SWOLLEN. ALL SYSTEMS NEGATIVE, EXCEPT NOTED. Physical Exam Physical Exam Dictation VITAL SIGNS: REVIEWED. GENERAL APPEARANCE: ALERT, ORIENTED X3, NO ACUTE DISTRESS, OBESE. HEAD AND FACE: NON-TRAUMATIC. EYES: PERRL, PINK CONJUNCTIVAS, EYELID NO TRAUMA, ANTERIOR CHAMBER CLEAR. EARS: PINNAS INTACT AND NO SIGNS OF TRAUMA OR ERYTHEMA. EAR CANALS CLEAR AND NO DISCHARGE. TMS NO ERYTHEMA. NOSE: NO DISCHARGE, NO BLEEDING. OROPHARYNX: MOUTH NORMAL, TEETH NO CARIES, TONGUE PINK. PHARYNX CLEAR, NO ERYTHEMA. TONSILS NO EXUDATES, NO ABSCESSES NOTED. MUCOUS MEMBRANE MOIST. NECK: SUPPLE, NON-TENDER, NO THYROMEGALY, NO MASSES, NO JVD, NO BRUITS. BREAST: DEFERRED. CHEST: NO TENDERNESS, NO CREPITUS, NO PARADOXICAL MOVEMENT, NO RETRACTIONS. LUNGS: CLEAR, WELL-VENTILATED, SYMMETRIC, NO RALES, NO WHEEZING, NO RHONCHI, NO STRIDOR, GOOD BREATH SOUNDS BILATERALLY. HEART: REGULAR RATE, REGULAR RHYTHM, NO MURMUR, NO GALLOPS. VASCULAR: NO PERIPHERAL EDEMA. ABDOMEN: SOFT, POSITIVE BOWEL SOUNDS, NONDISTENDED, NO GUARDING, NONTENDER, NO REBOUND, NO MASSES NO HEPATOMEGALY, NO SPLENOMEGALY, NO ARMENDARIZ'S SIGN, NO HERNIAS. RECTAL: DEFERRED. GENITAL: DEFERRED. NEUROLOGICAL: NORMAL SPEECH, GROSS MOTOR FUNCTION INTACT, GROSS SENSORY FUNCTION INTACT. MUSCULOSKELETAL: NECK NONTENDER, FULL RANGE OF MOTION, BACK NONTENDER, FULL RANGE OF MOTION. EXTREMITIES: NONTENDER, FULL RANGE OF MOTION. SKIN: COLOR PINK, DRY, NO TURGOR, NO RASH, NO LACERATIONS, NO ABRASIONS, NO CONTUSIONS. LYMPHATICS: DEFERRED. Results Laboratory and Microbiology Lab and Micro Result Laboratory Tests Test 08/29/25 08:02 08/29/25 09:12 08/29/25 09:13 White Blood Count 10.5 K/uL (4.8-10.8) Red Blood Count 5.47 MIL/uL (4.00-5.50) Hemoglobin 16.4 g/dL (12.0-16.0) H Hematocrit 47.7 % (36-48) Mean Corpuscular Volume 87.2 fL (79-99) Mean Corpuscular Hemoglobin 30.0 pg (27.0-33.0) Mean Corpuscular Hemoglobin Concent 34.4 g/dL (32.0-36.0) Red Cell Distribution Width 16.9 % (11.0-15.5) H Platelet Count 377 K/uL (130-400) Mean Platelet Volume 9.4 fL (7.5-10.5) Immature Granulocyte % (Auto) 0.9 % (0-1) Neutrophils (%) (Auto) 69.4 % (40.0-77.0) Lymphocytes (%) (Auto) 24.3 % (21.0-51.0) Monocytes (%) (Auto) 3.9 % (3.0-13.0) Eosinophils (%) (Auto) 0.8 % (0.0-8.0) Basophils (%) (Auto) 0.7 % (0.0-5.0) Neutrophils # (Auto) 7.3 K/uL (1.8-7.7) Lymphocytes # (Auto) 2.6 K/uL (1.0-4.8) Monocytes # (Auto) 0.4 K/uL (0.1-1.0) Eosinophils # (Auto) 0.08 K/uL (0.00-0.70) Basophils # (Auto) 0.07 K/uL (0.00-0.20) Absolute Immature Granulocyte (auto 0.10 K/uL (0-1) Nucleated Red Blood Cells 0.0 % (0.0-0.19) Erythrocyte Sedimentation Rate > 130 MM/HR (0-30) H Prothrombin Time 13.2 SEC (9.6-11.6) H Prothromb Time International Ratio 1.28 (0.85-1.15) H Activated Partial Thromboplast Time 32.5 SEC (26.3-35.5) Sodium Level 119 mmol/L (136-145) L 117 mmol/L (136-145) L Potassium Level 6.8 mmol/L (3.5-5.1) *H 7.0 mmol/L (3.5-5.1) *H Chloride Level 87 mmol/L (101-111) *L 88 mmol/L (101-111) *L Carbon Dioxide Level 13 mmol/L (21-32) L 7 mmol/L (21-32) *L Blood Urea Nitrogen 80 mg/dL (7-18) *H 83 mg/dL (7-18) *H Creatinine 5.0 mg/dL (0.5-1.0) H 5.0 mg/dL (0.5-1.0) H Glomerular Filtration Rate Calc 10 mL/min (>90) 10 mL/min (>90) Random Glucose 98 mg/dL (70-105) 99 mg/dL (70-105) Lactic Acid Level 3.1 mmol/L (0.8-2.5) H Total Calcium 11.3 mg/dL (8.5-10.1) H 10.4 mg/dL (8.5-10.1) H Ammonia 65 umol/L (11-32) H Total Creatine Kinase 26 U/L (21-232) Troponin I High Sensitivity 13 ng/L (4-50) Phosphorus Level 7.0 mg/dL (2.5-4.9) H Magnesium Level 2.40 mg/dL (1.80-2.40) Total Bilirubin 0.9 mg/dL (0.2-1.0) Direct Bilirubin 0.3 mg/dL (0.0-0.3) Aspartate Amino Transf (AST/SGOT) 61 U/L (10-37) H Alanine Aminotransferase (ALT/SGPT) 37 U/L (12-78) Alkaline Phosphatase 311 U/L (50-136) H Lactate Dehydrogenase 211 U/L (81-234) C-Reactive Protein, Quantitative 6.00 mg/L (0.5-3.0) H Total Protein 11.4 g/dL (6.0-8.3) H Albumin 4.2 g/dL (3.5-5.0) Procalcitonin 0.33 ng/mL (0.05-0.5) Blood Gas Specimen Type Arterial Arterial Blood pH 7.285 (7.350-7.450) Arterial Blood Partial Pressure CO2 18 mmHg (32-45) *L Arterial Blood Partial Pressure O2 109.8 mmHg (83.0-108.0) H Arterial Blood HCO3 8.4 mmol/L (21.0-28.0) L Arterial Blood Oxygen Saturation 97.9 % (94.0-98.0) Arterial Blood Base Excess -15.5 mmol/L (-2.0-3.0) L Hemoglobin (Blood Gas) 15.5 g/dL (12.0-16.0) Sodium (Blood Gas) 123 MMOL/L (136-145) L Bedside Potassium (Blood Gas) 6.7 MMOL/L (3.4-4.5) *H Bedside Chloride (Blood Gas) 96 MMOL/L (98-107) L Bedside Glucose (Blood Gas) 99 MG/DL (65-95) H Bedside Ionized Calcium (Blood Gas) 1.35 MMOL/L (1.15-1.33) H Bedside Lactic Acid (Blood Gas) 2.98 MMOL/L (0.36-0.75) H Blood Gas Temperature 37.0 CELSIUS (35.5-37.0) Blood Gas Vent Mode RA (ROOM AIR) FiO2 21.0 % Blood Gas Specimen Comment RR, Labs Reviewed?: Yes EKG/XRAY/US/CT/MRI EKG Comment 08/29/2025 TIME 8:34 A.M. VENTRICULAR RATE 98 SINUS RHYTHM [place] [address] WAVE ELEVATION OR DEPRESSION MDM MDM: DIFFERENTIAL DIAGNOSIS: HEMATEMESIS, HISTORY OF LIVER CIRRHOSIS, SEPSIS, RATIONALE: TESTS CONSIDERED AND ORDERED SECONDARY TO SHARED DECISION MAKING INCLUDE: PREVIOUS OUTSIDE RECORDS REVIEWED: OLD ER VISITS. RISK OF COMPLICATION AND/OR MORBIDITY OR MORTALITY OF PATIENT MANAGEMENT: NONE MEDICATIONS-PER MEDICATION RECONCILIATION NEED FOR HOSPITALIZATION: PATIENT DOES MEET CRITERIA FOR HOSPITALIZATION. NEED FOR EMERGENCY MAJOR/MINOR SURGERY: NO THERE ARE NO SOCIAL CONCERNS WITH THIS PATIENT. PRESCRIPTION DRUG MANAGEMENT PRESCRIPTIONS WILL INCLUDE SYMPTOMATIC CARE PATIENT'S PRIOR EXTERNAL MEDICAL RECORDS FROM OTHER ER VISITS WERE REVIEWED BY ME INDICATED. PRIOR TESTING AND RESULTS FROM PREVIOUS VISITS WERE REVIEWED. PRIOR TESTS WERE TAKEN INTO ACCOUNT WITH MEDICAL DECISION MAKING AND RESOURCE UTILIZATION, INDEPENDENT HISTORIAN/HISTORIANS WERE USED TO OBTAIN COMPLETE MEDICAL HISTORY. I INDEPENDENTLY INTERPRETED THE TEST THAT WERE PERFORMED, RESULTS WERE REVIEWED BY ME AND CONSIDERED FINDINGS ON RADIOLOGY IF ORDERED. MEDICAL MANAGEMENT AND EXAMINATION INTERPRETATION DISCUSSIONS WERE HAD BY ME WITH OTHER QUALIFIED HEALTHCARE PROFESSIONALS INDICATED FOR THE PATIENT'S CARE. PATIENT WILL BE ADMITTED UNDER THE CARE OF HOSPITALIST GROUP FOR ONGOING MANAGEMENT. ED Course Orders Procedure Category Date Status Time Cbc With Differential LAB 08/29/25 Complete 07:53 Blood Cult BRODY 08/29/25 In Process 07:53 Urinalysis Profile LAB 08/29/25 Logged 07:53 Culture Urine BRODY 08/29/25 Logged 07:53 Creatine Kinase, Total LAB 08/29/25 Complete 07:53 Troponin I High LAB 10/26/25 Complete Sensitivity 07:53 Lactic Acid LAB 08/29/25 Complete 07:53 Basic Metabolic Panel LAB 08/29/25 Complete 07:53 Chest 1vw RAD 08/29/25 Resulted 08:06 Ammonia LAB 08/29/25 Complete 08:06 12 Lead Ekg Tracing- EKG 08/29/25 Logged Technical 08:14 Octreotide Acetate PHA 08/29/25 Complete (Sandostatin) 08:30 Octreotide Acetate PHA 08/29/25 In Process (Sandostatin) 08:30 Pantoprazole 40mg Inj PHA 08/29/25 Complete (Protonix 40mg Inj 08:30 Pantoprazole 40mg Inj PHA 08/29/25 In Process (Protonix 40mg Inj 08:30 Promethazine Hcl PHA 08/29/25 Complete (Phenergan) 08:30 Compound Iv PHA 08/29/25 In Process Refrigerated 09:00 Arterial Blood Gas + RT 08/29/25 Transmitted 08:50 Basic Metabolic Panel LAB 08/29/25 Complete 08:50 Iv Insertion CPOE 08/29/25 Transmitted 09:04 0.9%Nacl 1000ml (Ns PHA 08/29/25 Complete 1000ml) 09:30 Arterial Blood Gas LAB 08/29/25 Complete Arterial + 09:13 Calcium Gluc 1gm PHA 08/29/25 In Process (Calcium Gluc 1gm 09:30 Insulin Regular, PHA 08/29/25 Complete Human 3ml (Humulin R 09:30 Albuterol 0.083% PHA 08/29/25 Complete 2.5mg/3ml (Proventil 09:30 Lactulose 20 Gm/30 Ml PHA 08/29/25 Complete Udcup (Constulose 09:30 Calcium Gluc 1gm PHA 08/29/25 Complete (Calcium Gluc 1gm 09:30 0.9%Nacl 1000ml (Ns PHA 08/29/25 Complete 1000ml) 09:30 Insulin Regular, PHA 08/29/25 Complete Human 3ml (Humulin R 09:30 Dextrose 50%-Water PHA 08/29/25 Complete (D50w) 09:30 Sodium Bicarb 50meq PHA 08/29/25 Complete 50ml Vial (Sodium Bi 09:30 Dextrose 50%-Water PHA 08/29/25 Complete (D50w) 09:30 Current Medications Medications (Trade) Dose Ordered Sig/Gregory Route PRN Reason Start Time Stop Time Status Last Admin Dose Admin Octreotide Acetate 1250 mcg/ Sodium Chloride 250 ml @ 0 mls/hr PROTOCOL IV 08/29/25 08:30 09/28/25 08:29 08/29/25 09:34 Octreotide Acetate (SandoSTATIN) 50 mcg ONCE ONCE IV 08/29/25 08:30 08/29/25 08:31 DC 08/29/25 09:02 Pantoprazole Sodium (PROTonix 40MG INJ) 80 mg ONCE ONCE IVP 08/29/25 08:30 08/29/25 08:31 DC 08/29/25 09:02 Pantoprazole Sodium 80 mg/ Sodium Chloride 100 ml @ 10 mls/hr Q10H IV 08/29/25 08:30 09/28/25 08:29 08/29/25 09:34 Promethazine HCl (Phenergan) 25 mg ONCE ONCE IM 08/29/25 08:30 08/29/25 08:33 DC 08/29/25 09:07 Vital Signs Date Time Temp Pulse Resp B/P (MAP) Pulse Ox O2 Delivery O2 Flow Rate FiO2 08/29/25 08:00 97.2 93 23 127/91 97 Room Air* 0 21 08/29/25 07:37 97.2 100 25 127/91 98 Room Air 0 Critical Care Note Comments CRITICAL CARE PROCEDURE NOTE AUTHORIZED AND PERFORMED BY: ME TOTAL CRITICAL CARE TIME: APPROXIMATELY 36 MINUTES DUE TO A HIGH PROBABILITY OF CLINICALLY SIGNIFICANT, LIFE THREATENING DETERIORATION, THE PATIENT REQUIRED MY HIGHEST LEVEL OF PREPAREDNESS TO INTERVENE EMERGENTLY AND I PERSONALLY SPENT THIS CRITICAL CARE TIME DIRECTLY AND PERSONALLY MANAGING THE PATIENT. THIS CRITICAL CARE TIME INCLUDED OBTAINING A HISTORY; EXAMINING THE PATIENT; PULSE OXIMETRY; ORDERING AND REVIEW OF STUDIES; ARRANGING URGENT TREATMENT WITH DEVELOPMENT OF A MANAGEMENT PLAN; EVALUATION OF PATIENT'S RESPONSE TO TREATMENT; FREQUENT REASSESSMENT; AND, DISCUSSIONS WITH OTHER PROVIDERS. THIS CRITICAL CARE TIME WAS PERFORMED TO ASSESS AND MANAGE THE HIGH PROBABILITY OF IMMINENT, LIFE-THREATENING DETERIORATION THAT COULD RESULT IN MULTI-ORGAN FAILURE. IT WAS EXCLUSIVE OF SEPARATELY BILLABLE PROCEDURES AND TREATING OTHER PATIENTS AND TEACHING TIME. PLEASE SEE MDM SECTION AND THE REST OF THE NOTE FOR FURTHER INFORMATION ON PATIENT ASSESSMENT AND TREATMENT. DX & DISP Disposition: Inpatient Departure Impression: Primary Impression: Hematemesis/vomiting blood Additional Impression: Liver cirrhosis Condition: Stable Referrals: SUSAN SEBASTIAN DO (PCP) MILAD WYNN MD Aug 29, 2025 08:38
[2025-08-29 08:42] LABS: CREATINE KINASE, TOTAL 26.0 U/L (21-232); CREATININE 5.0 mg/dL (0.5-1.0); GLOMERULAR FILTR. RATE CALC 10.0 mL/min (>90); GLUCOSE,RANDOM 98.0 mg/dL (70-105); SODIUM SERUM 119.0 mmol/L (136-145)
[2025-08-29 08:46] LABS: UREA NITROGEN, BLOOD 80.0 mg/dL (7-18)
[2025-08-29] MEDS ORDERED: COMPOUND IV REFRIGERATED 1 EACH IVSOLN MISC PRN (09:00)
[2025-08-29] MEDS: PROMETHAZINE HCL 25 MG/ML 1ML AMPULE IM ONE (09:07)
[2025-08-29 09:15] LABS: ABG BASE EXCESS -15.5 mmol/L (-2.0-3.0); ABG HCO3 8.4 mmol/L (21.0-28.0); ABG OXYGEN SATURATION 97.9 % (94.0-98.0); ABG PH 7.285 (7.350-7.450); CARBON MONOXIDE 0.9 % (0.5-1.5); PO2, ARTERIAL BG 109.8 mmHg (83.0-108.0); TEMPERATURE, CELSIUS BG 37.0 CELSIUS (35.5-37.0); VENT MODE, BG RA (ROOM AIR)
[2025-08-29] MEDS ORDERED: 0.9%NACL 1000ML 1,000 ML IV SCH ×4 (09:30→16:00)
[2025-08-29] MEDS ORDERED: CALCIUM GLUC 1GM/10ML VIAL IV SCH (09:30)
[2025-08-29] MEDS ORDERED: DEXTROSE 50%-WATER 50 ML DISP.SYRIN IV ONE (09:30)
[2025-08-29] MEDS ORDERED: LACTULOSE 20 GM/30 ML UDCUP PR ONE (09:30)
[2025-08-29] MEDS ORDERED: PHARMACY COMMUNICATION MISC SCH (09:30)
[2025-08-29 09:34] LABS: CREATININE 5.0 mg/dL (0.5-1.0); GLOMERULAR FILTR. RATE CALC 10.0 mL/min (>90); GLUCOSE,RANDOM 99.0 mg/dL (70-105); SODIUM SERUM 117.0 mmol/L (136-145)
[2025-08-29] MEDS: OCTREOTIDE ACETATE IV SCH (09:34)
[2025-08-29] MEDS: [UNRECOGNIZED DRUG - OTHER] IV SCH (09:34)
[2025-08-29] MEDS: ALBUTEROL 0.083% 2.5 MG/3 ML INH IH ONE (09:37)
[2025-08-29] MEDS: CALCIUM GLUC 1GM 1 GM in 0.9%NACL 100ML 100 ML IV ONE (09:41)
--- NOTE | 2025-08-29 09:45 | NUR ---
CT ABD/PELEXAM DELAY: PER ER NURSE, PATIENT UNSTABLE. NURSE WILL BRING PATIENT TO CT DURING TRANSFER TO ICU.
[2025-08-29] MEDS: SODIUM BICARB 50MEQ 50ML VIAL IV ONE ×2 (09:47→10:12)
[2025-08-29] MEDS: DEXTROSE 50%-WATER 50 ML DISP.SYRIN IV ONE (09:47)
[2025-08-29] MEDS: 0.9%NACL 1000ML 1,000 ML IV ONE ×3 (09:47→19:57)
[2025-08-29 09:49] LABS: UREA NITROGEN, BLOOD 83.0 mg/dL (7-18)
[2025-08-29 09:54] LABS: ASPARTATE AMINOTRANSFERASE 61.0 U/L (10-37); LACTATE DEHYDROGENASE 211.0 U/L (81-234); PHOSPHORUS 7.0 mg/dL (2.5-4.9); TOTAL PROTEIN, SERUM 11.4 g/dL (6.0-8.3)
[2025-08-29 09:54] LABS: INR 1.28 (0.85-1.15)
[2025-08-29] MEDS ORDERED: DEXTROSE 50%-WATER 50 ML DISP.SYRIN IV PRN (10:00)
[2025-08-29] MEDS ORDERED: GLUCAGON 1MG KIT 1 MG ML IM PRN (10:00)
--- NOTE | 2025-08-29 10:05 | HMCIMG ---
EXAM: CR Chest, 1 View. CLINICAL HISTORY: sob COMPARISON: None provided. FINDINGS: LUNGS: There is no mass, infiltrate, or acute pulmonary abnormality. Mild left basilar atelectasis and/or parenchymal scarring. PLEURAL SPACES: No evidence of pleural effusion or pneumothorax. MEDIASTINUM: Cardiac size and mediastinal contours within normal limits. BONES: No aggressive appearing osseous lesion seen. IMPRESSION: No acute cardiopulmonary pathology is evident. /Coram
[2025-08-29] MEDS: THIAMINE HCL 100 MG/ML 2ML VIAL IVP SCH (10:06)
--- NOTE | 2025-08-29 10:23 | HP ---
[facility] HISTORY AND PHYSICAL Date of Service: Aug 29, 2025 Time of Service: 10:08 HISTORY OF PRESENT ILLNESS: Date of service: 08/29/2025, patient is critically ill, patient was seen in ER room 14, this patient was recently discharged by the resident physician services, 50-year-old female with underlying history of type 2 diabetes mellitus, history of liver cirrhosis, prior history of esophageal varices requiring banding in May,, history of robotic sigmoid resection with takedown of colovesical fistula who was recently hospitalized in [facility] from 07/20/2025 - 08/25/2025 patient was found to have bilious peritonitis with 2 mm perforation of colonic anastomosis requiring diagnostic laparoscopy, abdominal washout and drain placement with creation of diverting loop ileostomy. Patient was hospitalized for about one month and subsequently required IR guided drain placement as well. She was just discharged from the hospital on 08/25/2025. Patient's daughter reports that patient was having nausea and vomiting with poor oral intake at home. She started to have coffee-ground emesis today and she also noticed some right streaks of blood with a coffee-ground emesis. Stool has also been dark in the ileostomy bag. Patient is having moderate intensity abdominal pain as well. She has not been taking any NSAIDs. Daughter reports that patient has been very weak since her discharge in very debilitated. Patient denies active chest pain. Denies active shortness of breath. On presentation to the hospital, patient was noted to be afebrile with T-max of 97.5 F, heart rate of 100, blood pressure of 127/91. [place] [address], hemoglobin of 16.4, platelet count of 327262. BMP was repeated twice, BMP showed sodium of 117, potassium 7.0, chloride of 88, CO2 of seven, BUN of 83, creatinine 5.0, blood glucose of 99, calcium 10.4. Blood gas showed pH of 7.28, bicarb of close to eight, CO2 of 18, lactic acid of three. Patient will be admitted to ICU. Patient is presenting with severe renal tapan lure with hyperkalemia and severe metabolic acidosis. Patient also with concerns for upper GI bleeding with coffee-ground emesis. Patient remains critically ill consultation with Intensive Care, Nephrology, GI will be requested. We we will obtain a CT abdomen pelvis without contrast for further evaluation as well. Patient is critically ill. Plan of care was discussed with patient and daughter at bedside. REVIEW OF SYSTEMS CONSTITUTIONAL: malaise, poor oral intake NEUROLOGICAL: Denies headache, amaurosis fugax, motor weakness, sensory deficit, vertigo/spinning sensation, gait abnormalities, or tremors. ENT: No hearing loss, otalgia, otorrhea, rhinitis, rhinorrhea, hoarseness, or sore throat. CARDIOVASCULAR: Denies any exertional angina, dyspnea on exertion, orthopnea, paroxysmal nocturnal dyspnea, palpitations, life-threatening arrhythmias, claudication. PULMONARY: Denies any shortness of breath, cough, phlegm/sputum, hemoptysis, pleuritic chest pain. SLEEP: Denies morning headaches, daytime somnolence or napping. Denies difficulty falling asleep, staying asleep, waking from sleep. Denies knowledge of snoring. GASTROINTESTINAL: nausea, vomiting, abdominal pain, melena, coffee ground emesis GENITOURINARY: Urine output has been very low ENDOCRINOLOGIC: Denies polyuria, polydipsia, polyphagia or heat/cold intolerances. HEMATOLOGIC: Denies thrombophilia/previous clots, or coagulopathy/bleeding disorders. ONCOLOGIC: Denies personal history of malignancy. DERMATOLOGIC: Denies rashes or pruritus. PSYCHIATRIC: Denies any suicidal or homicidal ideation. Denies hallucinations. ADDITIONAL PAST MEDICAL HISTORY: [Diabetes mellitius type 2, liver cirrhosis, esophageal varices, Recent history of hospitalization in [facility] for acute cholecystitis requiring cholecystostomy tube placement, perisplenic abscess status post CT-guided drainage on 08/09/2025, EGD with findings of acute gastritis, septic shock, peritonitis with ESBL E coli infection] SOCIAL HISTORY: [Negative for smoking, alcohol use, drug use. Patient lives with the daughter. Since discharge from the hospital, patient has been very weak and debilitated] SURGICAL HISTORY: [Right knee surgery, on 07/09/2025 repair of colo vesicular fistula with sigmoid colon resection and anastomosis, 07/21/2025: Bilious peritonitis w/ 2 mm perforation of the colonic anastomosis s/p Diagnostic laparoscopy, abdominal washout, drain placement and diverting loop ileostomy creation by Dr. Gann, During hospitalization in [facility] from 07/20/2025-08/25/2025, patient underwent multiple procedures including cholecystostomy tube placement, perisplenic and infra- splenic fluid collection with IR guided drainage catheter placement on 08/09/2025} Coded Allergies: aspirin (Unverified Allergy, Unknown, 07/02/25) bismuth subsalicylate (Unverified Allergy, Unknown, 07/02/25) pork derived (porcine) (Unverified Allergy, Unknown, 07/02/25) Uncoded Allergies: BISMUTH (Allergy, Unknown, 07/02/25) PHYSICAL EXAM GENERAL APPEARANCE: The patient is awake, alert, appears chronically ill and very debilitated NEUROLOGICAL: Cranial nerves II-XII grossly intact. Neurological examination is non focal with spontaneous movement of upper and lower extremities HEENT: Face is symmetric. Pupils are equal and reactive. Extraocular movements are intact. NECK: Supple. No JVD. No thyromegaly. No submental, submandibular, pre- /postauricular, occipital or supraclavicular lymphadenopathy. CHEST: Normal chest expansion. No Telemetry. LUNGS: Absence of any rales, rhonchi or any wheezing. CARDIOVASCULAR: Regular. S1 and S2 normal. No appreciable rubs, murmurs or gallops. ABDOMEN: tenderness to palpation of the epigastric region, non rebound noted, there is abdominal drains noted, accordion drain with sero-sanguinous drainage noted, very minimal : Deferred. No Dueñas. EXTREMITIES: Non-edematous and not cyanotic. No clubbing. Vital Sign (Last 24 Hours) 08/29/25 08/29/25 08:00 09:34 Temp 97.2 Pulse 100 Resp 20 B/P (MAP) 127/91 Pulse Ox 97 O2 Delivery Room Air* O2 Flow Rate 0 FiO2 21 LABS: Laboratory: Test 08/29/25 09:13 08/29/25 09:12 08/29/25 08:02 Range/Units Blood Gas Specimen Type Arterial Arterial Blood pH 7.285 L 7.350-7.450 Arterial Blood Partial Pressure CO2 18 *L 32-45 mmHg Arterial Blood Partial Pressure O2 109.8 H 83.0-108.0 mmHg Arterial Blood HCO3 8.4 L 21.0-28.0 mmol/L Arterial Blood Oxygen Saturation 97.9 94.0-98.0 % Arterial Blood Base Excess -15.5 L -2.0-3.0 mmol/L Hemoglobin (Blood Gas) 15.5 12.0-16.0 g/dL Sodium (Blood Gas) 123 L 136-145 MMOL/L Bedside Potassium (Blood Gas) 6.7 *H 3.4-4.5 MMOL/L Bedside Chloride (Blood Gas) 96 L 98-107 MMOL/L Bedside Glucose (Blood Gas) 99 H 65-95 MG/DL Bedside Ionized Calcium (Blood Gas) 1.35 H 1.15-1.33 MMOL/L Bedside Lactic Acid (Blood Gas) 2.98 H 0.36-0.75 MMOL/L Blood Gas Temperature 37.0 35.5-37.0 CELSIUS Blood Gas Vent Mode RA ROOM AIR FiO2 21.0 % Blood Gas Specimen Comment RR, Sodium Level 117 L 136-145 mmol/L Potassium Level 7.0 *H 3.5-5.1 mmol/L Chloride Level 88 *L 101-111 mmol/L Carbon Dioxide Level 7 *L 21-32 mmol/L Blood Urea Nitrogen 83 *H 7-18 mg/dL Creatinine 5.0 H 0.5-1.0 mg/dL Glomerular Filtration Rate Calc 10 >90 mL/min Random Glucose 99 70-105 mg/dL Total Calcium 10.4 H 8.5-10.1 mg/dL Phosphorus Level 7.0 H 2.5-4.9 mg/dL Magnesium Level 2.40 1.80-2.40 mg/dL Total Bilirubin 0.9 0.2-1.0 mg/dL Direct Bilirubin 0.3 0.0-0.3 mg/dL Aspartate Amino Transf (AST/SGOT) 61 H 10-37 U/L Alanine Aminotransferase (ALT/SGPT) 37 12-78 U/L Alkaline Phosphatase 311 H 50-136 U/L Lactate Dehydrogenase 211 81-234 U/L C-Reactive Protein, Quantitative 6.00 H 0.5-3.0 mg/L Total Protein 11.4 H 6.0-8.3 g/dL Albumin 4.2 3.5-5.0 g/dL Procalcitonin 0.33 0.05-0.5 ng/mL White Blood Count 10.5 4.8-10.8 K/uL Red Blood Count 5.47 4.00-5.50 MIL/uL Hemoglobin 16.4 H 12.0-16.0 g/dL Hematocrit 47.7 36-48 % Mean Corpuscular Volume 87.2 79-99 fL Mean Corpuscular Hemoglobin 30.0 27.0-33.0 pg Mean Corpuscular Hemoglobin Concent 34.4 32.0-36.0 g/dL Red Cell Distribution Width 16.9 H 11.0-15.5 % Platelet Count 377 130-400 K/uL Mean Platelet Volume 9.4 7.5-10.5 fL Immature Granulocyte % (Auto) 0.9 0-1 % Neutrophils (%) (Auto) 69.4 40.0-77.0 % Lymphocytes (%) (Auto) 24.3 21.0-51.0 % Monocytes (%) (Auto) 3.9 3.0-13.0 % Eosinophils (%) (Auto) 0.8 0.0-8.0 % Basophils (%) (Auto) 0.7 0.0-5.0 % Neutrophils # (Auto) 7.3 1.8-7.7 K/uL Lymphocytes # (Auto) 2.6 1.0-4.8 K/uL Monocytes # (Auto) 0.4 0.1-1.0 K/uL Eosinophils # (Auto) 0.08 0.00-0.70 K/uL Basophils # (Auto) 0.07 0.00-0.20 K/uL Absolute Immature Granulocyte (auto 0.10 0-1 K/uL Nucleated Red Blood Cells 0.0 0.0-0.19 % Erythrocyte Sedimentation Rate > 130 H 0-30 MM/HR Prothrombin Time 13.2 H 9.6-11.6 SEC Prothromb Time International Ratio 1.28 H 0.85-1.15 Activated Partial Thromboplast Time 32.5 26.3-35.5 SEC Lactic Acid Level 3.1 H 0.8-2.5 mmol/L Ammonia 65 H 11-32 umol/L Total Creatine Kinase 26 21-232 U/L Troponin I High Sensitivity 13 4-50 ng/L Current Medications Medications (Trade) Dose Ordered Sig/Gregory Route PRN Reason Start Time Stop Time Status Last Admin Dose Admin Acetaminophen (TYLenol 325MG TAB) 650 mg Q6H PRN PO MILD PAIN (1-3) 08/29/25 10:00 09/28/25 09:59 Albuterol (DUOneb) 1 udvial Q6H PRN IH SHORTNESS OF BREATH 08/29/25 10:00 09/28/25 09:59 Calcium Gluconate (Calcium Gluc 1gm Vial) 1 gm ONCE IV 08/29/25 09:30 08/29/25 09:23 DC Dextrose (D50w) 50 ml AD PRN IV HYPOGLYCEMIA PROTOCOL 08/29/25 10:00 09/28/25 09:59 Glucagon (Glucagon 1mg Kit) 1 mg AD PRN IM HYPOGLYCEMIA PROTOCOL 08/29/25 10:00 09/28/25 09:59 Insulin Human Regular (humuLIN R 100 UNIT/ML 3ML) 5 unit ONCE IV 08/29/25 09:30 08/29/25 09:25 DC Meropenem (Merrem 500mg) 500 mg Q24H IVPB 08/29/25 10:00 08/31/25 09:59 Octreotide Acetate 1250 mcg/ Sodium Chloride 250 ml @ 0 mls/hr PROTOCOL IV 08/29/25 08:30 09/28/25 08:29 08/29/25 09:34 5 MLS/HR Ondansetron HCl (zoFRAN 4MG INJ) 4 mg Q6H PRN IVP NAUSEA/VOMITING 08/29/25 09:30 09/28/25 09:29 Pantoprazole Sodium 80 mg/ Sodium Chloride 100 ml @ 10 mls/hr Q10H IV 08/29/25 08:30 09/28/25 08:29 08/29/25 09:34 10 MLS/HR Pharmacy Profile Note (Pharmacy Communication) 1 each ONCE MISC 08/29/25 09:30 08/29/25 09:35 DC Sodium Bicarbonate 150 meq/Dextrose 1,150 ml @ 125 mls/hr Q9H12M IVP 08/29/25 10:00 09/28/25 09:59 Sodium Chloride 1,000 ml @ 125 mls/hr Q8H IV 08/29/25 09:30 08/29/25 09:57 DC Sodium Chloride 1,000 ml @ 999 mls/hr Q1H1M IV 08/29/25 09:30 08/29/25 09:06 DC Thiamine HCl (Vitamin B-1) 200 mg Q12H IVP 08/29/25 09:30 09/02/25 09:30 08/29/25 10:06 200 MG DIAGNOSTICS / RADIOLOGY: No acute infiltrates in CXR ASSESSMENT: Severe hypovolemic hyponatremia, POA Severe hyperkalemia, POA Severe metabolic acidosis, POA Severe renal failure, POA Starvation Ketoacidosis, POA Rule out occult sepsis, POA Recent extended hospitalization in [facility], 07/20/2025- 08/25/2025 for sepsis, acute abdomen, POA Severe Dehydration, POA Acute upper GI bleeding with history of esophageal varices, POA Decompensated liver cirrhosis, POA hx of acute cholecystitis, s/p cholecystostomy tube placement on 08/02/2025. Perisplenic abscess, s/p CT-guided drainage placement on 08/09/2025. History of gastritis, POA Hx of Generalized peritonitis with ESBL E coli infection, POA Moderate Protein calorie malnutrition POA History of bilious peritonitis with small colonic anastomosis perforation s/p diagnostic laparoscopy, abdominal washout, ileostomy creation by Dr. Gann, 07/21/2025 Hx of DM II, POA Recent colovesical fistula repair with sigmoid colon resection and anastomosis on PLAN: Patient will be admitted to ICU, patient is critically ill Patient will receive calcium gluconate, IV insulin, IV sodium bicarb x2 amps, nebulized albuterol for management of hyperkalemia, patient is having nausea, vomiting and abdominal pain, we will hold Lokelma and avoid rectal Kayexalate BMP will be checked q.6 hours tonight Patient will receive bolus of IV NS X 2 and we will start sodium bicarb drip at 125 mL/hour Consultation with ICU, Nephrology, Gastroenterology will be requested urgently, Patient's case was also discussed with Dr. Ray with General Surgery Patient will be kept strictly NPO We will start patient on octreotide/Protonix infusion We will keep patient on GI prophylaxis with IV meropenem due to prior history of ESBL E coli infection We will obtain a abdominal CT without contrast for further evaluation of abdominal pain Low threshold for intubation in case patient develops further episodes of GI bleeding/AMS H&H will be trended closely, we will transfuse to maintain hemoglobin greater than 7-8 or in case of hemodynamic instability Patient has a poor IV access, we will obtain a midline placement, in case of hypotension, we will have ICU team place central venous access Case management will be consulted, patient will need SNF versus LTAC on discharge Patient is very critically ill, renal function will be monitored closely, if hyperkalemia does not improve today, will renal replacement therapy Anticipate Endoscopy in the next 24 hours, GI to follow up Addendum: I spoke with Nicole with Nephrology, given severe hyperkalemia with significant metabolic acidosis and severe electrolyte derangement, he is recommending one session of hemodialysis, discussed with ICU team who will be placing dialysis catheter for hemodialysis to be done urgently today. Plan of care was discussed with patient and daughter at bedside Critical care minutes: 60 minutes Dipesh Gtz MD Advanced Care Planning: Which of the following were discussed: Hospice care: Yes __ No _X_ Therapeutic options: Yes _X_ No __ Advance directives: Yes _X_ No __ Other discussions: Discussed with who?: 20 minutes Voluntary nature of this service was explained to the patient? Yes _x_ No __ Amount of time spent: 20 minutes DIPESH GTZ MD Aug 29, 2025 10:23
--- NOTE | 2025-08-29 11:31 | NUR ---
NEPHROLOGY CONSULT DR HUANG MADE AWARE AND WAS HERE ALREADY TO SEE PT. HE IS REQUESTING PLACEMENT OF VENOUS ACCESS FOR HEMODIALYSIS
--- NOTE | 2025-08-29 11:32 | NUR ---
CRITICAL CARE CONSULT: DR CONTRERAS ALREADY SPOKE TO STEVENSON ZAVALA. SHE IS AWARE OF NEED FOR HD CATH PLACEMENT AND WILL DO IT ONCE PT IS TAKEN TO ICU
--- NOTE | 2025-08-29 11:33 | NUR ---
INFECTIOUS DISEASE CONSULT: I HAVE ALREADY MESSAGED DR ROGER ABOUT HIS NEW CONSULT
--- NOTE | 2025-08-29 11:34 | NUR ---
GI/SURGICAL CONSULT: DR CONTRERAS HAS ALREADY INORMED THE GI/SURGICAL MD OF CONSULTATIONS.
--- NOTE | 2025-08-29 11:54 | NUR ---
WITH PT VERBAL PERMISSION, SHE ALLOWED ME TO GO TO THE WAITING ROOM AND UPDATE HER DAUGHTER MADINA ON THE CURRENT PLAN OF CARE.
--- NOTE | 2025-08-29 11:58 | NUR ---
[facility] CO: THE [employer] PERSONNEL IS CURRENTLY HERE AT BEDSIDE ATTEMPTING TO INSERT THE MIDLINE ACCESS.
[2025-08-29 12:02] LABS: CREATININE 4.9 mg/dL (0.5-1.0); GLOMERULAR FILTR. RATE CALC 10.0 mL/min (>90); GLUCOSE,RANDOM 242.0 mg/dL (70-105); SODIUM SERUM 123.0 mmol/L (136-145)
[2025-08-29 12:08] LABS: UREA NITROGEN, BLOOD 85.0 mg/dL (7-18)
--- NOTE | 2025-08-29 12:15 | NUR ---
MIDLINE IN SITU R UPPER ARM,DOUBLE LUMEN
[2025-08-29] MEDS ORDERED: DEXTROSE 5 %-0.45 % NACL 1,000 ML IV SCH (12:30)
[2025-08-29] MEDS ORDERED: INSULIN REGULAR, HUMAN 3ML 100 UNIT in 0.9%NACL 100ML 100 ML IV SCH (12:30)
[2025-08-29] MEDS ORDERED: MAGNESIUM 2GM PREMIX 50ML 50 ML IV SCH (12:30)
--- NOTE | 2025-08-29 12:51 | EKG ---
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
[2025-08-29 13:06] LABS: ABG PCO2 18 mmHg (32-45)
[2025-08-29 13:13] LABS: APPEARANCE,URINE CLEAR (CLEAR); GLUCOSE, URINE (UA) NEGATIVE (NEGATIVE); LEUKOCYTE ESTERASE ,URINE NEGATIVE Leu/uL (NEGATIVE); NITRATE,URINE NEGATIVE (NEGATIVE); OCCULT BLOOD,URINE NEGATIVE (NEGATIVE)
[2025-08-29 13:14] LABS: CREATININE,URINE RANDOM 242.85 mg/dL (30-135)
[2025-08-29 13:16] LABS: ADD UA MICROSCOPIC YES
[2025-08-29 13:18] LABS: SQUAMOUS EPITHELIAL CELL,UR RARE /HPF (0-2)
[2025-08-29] MEDS: MEROPENEM 500MG 500 MG VIAL IVPB SCH (13:44)
[2025-08-29] MEDS: SODIUM BICARB 8.4% 50ML SYRING 150 MEQ in DEXTROSE 5%-WATER 1,000 ML IVP SCH (13:44)
--- NOTE | 2025-08-29 15:21 | HMCIMG ---
EXAM: CT Abdomen and Pelvis Without IV contrast CLINICAL HISTORY: coffee ground emesis, hx of abdominal drain, nausea, vomiting, hx of cirrho TECHNIQUE: Axial computed tomography images of the abdomen and pelvis without intravenous contrast. CONTRAST: No IV contrast. COMPARISON: Study dated 08/23/25. FINDINGS: LUNG BASES: Tiny calcified nodules in the posterior basal segment of the right lower lobe. There is mild dependent airspace disease within the bilateral lower lobes that is presumed to reflect atelectasis. No pleural effusions are seen. LIVER: There is cirrhotic hepatic morphology. Several small esophageal varices are noted. GALLBLADDER AND BILE DUCTS: The gallbladder is decompressed with a cholecystostomy tube in place. No biliary ductal dilatation is evident. PANCREAS: Unremarkable. SPLEEN: 2.7 x 2.2 x 5.1 cm infrasplenic collection with adjacent fat stranding and pigtail tube in place. ADRENAL GLANDS: Unremarkable. KIDNEYS, URETERS, AND BLADDER: The kidneys appear within normal limits. There is no hydronephrosis or hydroureter. No urinary calculi are seen. Dueñas's bulb in the urinary bladder with few air foci. STOMACH AND BOWEL: 2.4 cm ileostomy defect in the right iliac fossa and postoperative changes in the bowel loops. No evidence of bowel obstruction. No evidence suggesting enteritis or colitis. APPENDIX: No evidence of acute appendicitis on CT examination. PERITONEUM: No free fluid. No free air. LYMPH NODES: No lymphadenopathy is evident. REPRODUCTIVE: Unremarkable as visualized. VASCULATURE: No evidence of abdominal aortic aneurysm. BONES: No aggressive appearing osseous lesion. No acute osseous pathology evident. Mild degenerative changes in the spine. IMPRESSION: 1. Cirrhotic hepatic morphology. Several small esophageal varices are noted. 2. 2.7 x 2.2 x 5.1 cm infrasplenic collection with adjacent fat stranding and pigtail tube in place. 3. Cholecystostomy tube in decompressed gallbladder. 4. Ileostomy in right iliac fossa with postoperative changes. /Pray
[2025-08-29] MEDS: LIDOCAINE HCL 1% 20 ML VIAL ONE ×2 (15:59)
--- NOTE | 2025-08-29 16:03 | CONS ---
[facility] CONSULTATION NOTE Date Patient Seen: Aug 29, 2025 Time of Visit: 16:03 Supervising Physician: Chalino Jeffery MD Reason for Consultation: [facility] Primary Care Physician: Jes Olivera Outpatient Specialists: [ ] Inpatient Consults: [facility] PROBLEM LIST: Severe sepsis with a multi organ dysfunction POA (SOFA Score 4 Points </33% mortality) Multifactorial Acute metabolic acidosis CYNTHIA FENa score 0.2% Prerenal POA Life-threatening hypokalemia POA Multifactorial Acute metabolic encephalopathy, POA GI bleed in the presence of esophageal varices Acute decompensated liver cirrhosis Hyperammonemia Hyponatremia Moderate protein malnutrition Severe dehydration Starvation ketosis Hyperglycemia in the presence of type 2 diabetes mellitus, POA 2.7 x 2.2 x 5.1 cm infrasplenic collection hx of acute cholecystitis, s/p cholecystostomy tube to right upper quadrant placement on 08/02/2025. Perisplenic abscess, s/p CT-guided drainage placement on 08/09/2025. History of bilious peritonitis with small colonic anastomosis perforation s/p diagnostic laparoscopy, abdominal washout, ileostomy creation by Dr. Gann, 07/21/2025 Gastritis Hx of Generalized peritonitis with ESBL E coli infection, POA Recent colovesical fistula repair with sigmoid colon resection and anastomosis on HPI: This is a 55-year-old female with a past medical history of type 2 diabetes mellitus, history of liver cirrhosis with portal hypertension and esophageal varices requiring banding in May of 2025, history robotic sigmoid resection with takedown of colovesicular fistula who was recently hospitalized from 07/20/2025 to 08/25/2025. Per family she was found to have be less peritonitis required diagnostic laparoscopy with the abdominal one showed an drain placement with creation of diverting loop ileostomy. She was discharged on 08/25/25 with a cholecystostomy drain to right side of abdomen, a Cardene drip to left side of abdomen and colostomy to right lower quadrant. As per patient's daughter patient continue with nausea and vomiting with poor oral intake at home. Today she presented to the ED for coffee-ground emesis with some bloody streaks. She is also noted to have dark watery stool on right lower quadrant ileostomy bag. Daughter reports that she has also been feeling generally weak, denies fevers at home, denies chills. In the ED patient arrived with a temperature 97.2, heart rate of 100 respiratory rate of 25 blood pressure 127/91 O2 sats of 98% on room air. Pertinent laboratory shows sodium of 117, potassium of seven chloride of 88 carbon dioxide of seven BUN of 83 creatinine of 5.0 and GFR of 10 with a glucose of 99 mg/dL. Total protein of 11.4 CRP of 6.0, ammonia 65. Chest x-ray with no acute cardiopulmonary pathology. Cirrhotic hepatic morphology. Several small esophageal varices are noted 2.7 x 2.2 x 5.1 cm in for splenic collection with the adjacent fat stranding and pigtail tube in place. Cholecystostomy tube in the compressed gallbladder. Ileostomy right iliac fossa with postop changes. On assessment patient with GCS of 13-14, lethargic, encephalopathic. Follows simple commands. Protecting her airway. Denies any further nausea at this time. Blood pressure marginal 94/62 with a heart rate of 89 respiratory rate of 25 saturating 96% on room air on bedside monitor. CT abdomen and pelvis shows cirrhotic hepatic morphology, several small esophageal varices are noted. 2.7 x 2.2 x 5.1 cm infra splenic collection with the adjacent fat stranding and pigtail tube in place. Cholecystostomy tube in decompressed gallbladder. Ileostomy right iliac fossa with postoperative changes. Per Dr. Rivera ornamental painter he is recommended hemodialysis. Requested critical care to place Trialysis catheter. The [Trialysis] procedure, including its purpose, risks, benefits, and alternatives, was explained to the Patient's daughter in detail. Risks discussed included, but were not limited to, bleeding, infection, arterial puncture, hematoma, arrhythmia, pneumothorax, catheter malfunction, and need for replacement or repositioning. Consent: The patient's daughter demonstrated understanding of the information provided and voluntarily gave verbal and written consent for the procedure. All questions were answered. PAST MEDICAL HX: see above PAST SURGICAL HX: noncontributory SOCIAL HISTORY: No tobacco, ETOH, or illicit drug use Coded Allergies: aspirin (Unverified Allergy, Unknown, 07/02/25) bismuth subsalicylate (Unverified Allergy, Unknown, 07/02/25) pork derived (porcine) (Unverified Allergy, Unknown, 07/02/25) Uncoded Allergies: BISMUTH (Allergy, Unknown, 07/02/25) REVIEW OF SYSTEMS: Unable to perform perform due to patient's encephalopathic. PHYSICAL EXAM: GENERAL: Chronically ill, weak, debilitated, malnourished HEENT: EOMI, Sclera non icteric, dry mucosa NECK: Supple, no JVD, trachea midline LUNGS: Clear breath sounds bilaterally. No wheezes HEART: Regular rate and rhythm. Normal S1 and S2, without murmurs ABD: Abdomen soft, nontender. Bowel sounds present, right upper quadrant cholecystostomy tube, left upper quadrant accordion drain, ileostomy to right lower quadrant. EXT: No clubbing cyanosis or edema NEURO: GCS of 13. No focal weakness. Vital Signs (last 8hr) Date Time Temp Pulse Resp B/P (MAP) Pulse Ox O2 Delivery O2 Flow Rate FiO2 08/29/25 14:00 Room Air* 0 21 08/29/25 14:00 85 20 128/72 100 Room Air 08/29/25 13:45 90 19 100/70 100 Room Air 08/29/25 13:30 97.9 92 17 107/75 100 Room Air 08/29/25 13:04 97.2 100 22 94/60 97 Room Air* 0 21 08/29/25 12:13 107 20 N/A Room Air 21 08/29/25 12:00 97.2 104 19 97/66 97 Room Air* 0 21 08/29/25 11:00 97.2 98 19 110/73 96 Room Air* 0 21 08/29/25 10:19 97.2 96 26 142/91 97 Room Air* 0 21 08/29/25 09:34 100 20 08/29/25 09:15 97.2 95 23 126/88 99 Room Air* 0 21 LABS: Hematology Labs: Test 08/29/25 11:39 08/29/25 08:02 Range/Units Hemoglobin 13.9 12.0-16.0 g/dL Hematocrit 39.5 36-48 % White Blood Count 10.5 4.8-10.8 K/uL Red Blood Count 5.47 4.00-5.50 MIL/uL Mean Corpuscular Volume 87.2 79-99 fL Mean Corpuscular Hemoglobin 30.0 27.0-33.0 pg Mean Corpuscular Hemoglobin Concent 34.4 32.0-36.0 g/dL Red Cell Distribution Width 16.9 H 11.0-15.5 % Platelet Count 377 130-400 K/uL Mean Platelet Volume 9.4 7.5-10.5 fL Immature Granulocyte % (Auto) 0.9 0-1 % Neutrophils (%) (Auto) 69.4 40.0-77.0 % Lymphocytes (%) (Auto) 24.3 21.0-51.0 % Monocytes (%) (Auto) 3.9 3.0-13.0 % Eosinophils (%) (Auto) 0.8 0.0-8.0 % Basophils (%) (Auto) 0.7 0.0-5.0 % Neutrophils # (Auto) 7.3 1.8-7.7 K/uL Lymphocytes # (Auto) 2.6 1.0-4.8 K/uL Monocytes # (Auto) 0.4 0.1-1.0 K/uL Eosinophils # (Auto) 0.08 0.00-0.70 K/uL Basophils # (Auto) 0.07 0.00-0.20 K/uL Absolute Immature Granulocyte (auto 0.10 0-1 K/uL Nucleated Red Blood Cells 0.0 0.0-0.19 % Erythrocyte Sedimentation Rate > 130 H 0-30 MM/HR Chemistry Labs: Test 08/29/25 14:05 08/29/25 12:32 08/29/25 11:39 08/29/25 09:12 Range/Units Whole Blood Glucose 151 H 70-110 MG/DL Bedside Glucose Comment Notified Nurse Sodium Level 123 L 136-145 mmol/L Potassium Level 5.5 H 3.5-5.1 mmol/L Chloride Level 88 *L 101-111 mmol/L Carbon Dioxide Level 14 L 21-32 mmol/L Blood Urea Nitrogen 85 *H 7-18 mg/dL Creatinine 4.9 H 0.5-1.0 mg/dL Glomerular Filtration Rate Calc 10 >90 mL/min Random Glucose 242 #H 70-105 mg/dL Hemoglobin A1c 5.5 4.0-6.0 % Estimated Average Glucose (eAG) 111 70-126 mg/dL Whole Blood Ketones Quantitative 2.2 H 0.0-0.6 mmol/L Lactic Acid Level 3.4 H 0.8-2.5 mmol/L Total Calcium 10.3 H 8.5-10.1 mg/dL Phosphorus Level 7.0 H 2.5-4.9 mg/dL Magnesium Level 2.40 1.80-2.40 mg/dL Total Bilirubin 0.9 0.2-1.0 mg/dL Direct Bilirubin 0.3 0.0-0.3 mg/dL Aspartate Amino Transf (AST/SGOT) 61 H 10-37 U/L Alanine Aminotransferase (ALT/SGPT) 37 12-78 U/L Alkaline Phosphatase 311 H 50-136 U/L Lactate Dehydrogenase 211 81-234 U/L C-Reactive Protein, Quantitative 6.00 H 0.5-3.0 mg/L Total Protein 11.4 H 6.0-8.3 g/dL Albumin 4.2 3.5-5.0 g/dL Procalcitonin 0.33 0.05-0.5 ng/mL Test 08/29/25 08:02 Range/Units Ammonia 65 H 11-32 umol/L Total Creatine Kinase 26 21-232 U/L Troponin I High Sensitivity 13 4-50 ng/L Coagulation Labs: Test 08/29/25 08:02 Range/Units Prothrombin Time 13.2 H 9.6-11.6 SEC Prothromb Time International Ratio 1.28 H 0.85-1.15 Activated Partial Thromboplast Time 32.5 26.3-35.5 SEC DIAGNOSTICS / RADIOLOGY RESULTS: [ ] [address] [address] IMAGING REPORT Signed PATIENT: DALLAS BUCHANAN MR#: [id number] : 1970 SEX: F AGE: 55 LOCATION: 2CV ORDER 9 STATUS: ADM IN REPORT#: [id number] SERVICE 7 REASON: coffee ground emesis, hx of abdominal drain, nausea, vomiting, hx of cirrho ORDERING PHYSICIAN: BRADEN CONTRERAS MD PROCEDURE: ABD PEL WO - CT ABDOMEN/PELVIS W/O CONTRAST EXAM: CT Abdomen and Pelvis Without IV contrast CLINICAL HISTORY: coffee ground emesis, hx of abdominal drain, nausea, vomiting, hx of cirrho TECHNIQUE: Axial computed tomography images of the abdomen and pelvis without intravenous contrast. CONTRAST: No IV contrast. COMPARISON: Study dated 08/23/25. FINDINGS: LUNG BASES: Tiny calcified nodules in the posterior basal segment of the right lower lobe. There is mild dependent airspace disease within the bilateral lower lobes that is presumed to reflect atelectasis. No pleural effusions are seen. LIVER: There is cirrhotic hepatic morphology. Several small esophageal varices are noted. GALLBLADDER AND BILE DUCTS: The gallbladder is decompressed with a cholecystostomy tube in place. No biliary ductal dilatation is evident. PANCREAS: Unremarkable. SPLEEN: 2.7 x 2.2 x 5.1 cm infrasplenic collection with adjacent fat stranding and pigtail tube in place. ADRENAL GLANDS: Unremarkable. KIDNEYS, URETERS, AND BLADDER: The kidneys appear within normal limits. There is no hydronephrosis or hydroureter. No urinary calculi are seen. Dueñas's bulb in the urinary bladder with few air foci. STOMACH AND BOWEL: 2.4 cm ileostomy defect in the right iliac fossa and postoperative changes in the bowel loops. No evidence of bowel obstruction. No evidence suggesting enteritis or colitis. APPENDIX: No evidence of acute appendicitis on CT examination. PERITONEUM: No free fluid. No free air. LYMPH NODES: No lymphadenopathy is evident. REPRODUCTIVE: Unremarkable as visualized. VASCULATURE: No evidence of abdominal aortic aneurysm. BONES: No aggressive appearing osseous lesion. No acute osseous pathology evident. Mild degenerative changes in the spine. IMPRESSION: 1. Cirrhotic hepatic morphology. Several small esophageal varices are noted. 2. 2.7 x 2.2 x 5.1 cm infrasplenic collection with adjacent fat stranding and pigtail tube in place. 3. Cholecystostomy tube in decompressed gallbladder. 4. Ileostomy in right iliac fossa with postoperative changes. /[place] DICTATED BY: ELDON MILLER Jr., MD DATE: 08/29/251619 ELECTRONICALLY SIGNED BY: ELDON MILLER Jr., MD DATE: 08/29/251619 [address] [address] IMAGING REPORT Signed PATIENT: DALLAS BUCHANAN MR#: [id number] : 1970 SEX: F AGE: 55 LOCATION: EDHIP ORDER 6 STATUS: ADM IN REPORT#: [id number] SERVICE 5 REASON: sob ORDERING PHYSICIAN: MILAD WYNN MD PROCEDURE: CXR1VW - CHEST 1VW EXAM: CR Chest, 1 View. CLINICAL HISTORY: sob COMPARISON: None provided. FINDINGS: LUNGS: There is no mass, infiltrate, or acute pulmonary abnormality. Mild left basilar atelectasis and/or parenchymal scarring. PLEURAL SPACES: No evidence of pleural effusion or pneumothorax. MEDIASTINUM: Cardiac size and mediastinal contours within normal limits. BONES: No aggressive appearing osseous lesion seen. IMPRESSION: No acute cardiopulmonary pathology is evident. /[place] DICTATED BY: ELDON MILLER Jr., MD DATE: 08/29/251103 ELECTRONICALLY SIGNED BY: ELDON MILLER Jr., MD DATE: 08/29/251103 PLAN Trialysis catheter Continue ICU management Continue bicarb drip at 125 mL/hour Monitor anion gap Holding off on insulin drip due to likely patient has a starvation ketosis. If no improvement tomorrow we may re-evaluate for the need of insulin drip at this time not likely DKA A1c 5.5 Follow Nephrology recommendations Follow General surgery recommendations Monitor electrolytes and cover accordingly. The patient NPO until more alert Aspiration precautions Follow GI recommendations Monitor ammonia levels NEURO: Minimize central acting medications as possible. Fall Precautions. Well lighted room through the day and minimize interruptions through the night to prevent acute delirium. PULMONARY: Supplemental 02 as needed Titrate Fio2 to keep Spo2 > or = 90% DuoNebs and CPT as needed IS hourly while awake for pulmonary hygiene Out of bed to chair as tolerated CARDIOVASCULAR: Follow hemodynamics. Titrate vasopressor to keep MAP >65 or systolic blood pressure >95mmHg Drips: Sodium bicarb drip LINES: PIV Transferred to right IJ Right upper quadrant cholecystostomy tube Left upper quadrant accordion drain Ileostomy to right lower quadrant GI & NUTRITION: Continue nutritional support Aspirations precautions Prokinetic agents and laxatives as needed KIDNEYS & ELECTROLYTES: Strict monitoring of intake and output Daily weights Avoid nephrotoxic agents Monitor electrolytes and replace as needed Goal urine output of 30mL/hr or 0.5mL/kg/hr Follow Nephrology recommendations Place Trialysis catheter per Nephrology recommendation next Case Dueñas catheter ENDOCRINE: Maintain blood glucose between 100-180 at all times. Insulin sliding scale for blood glucose management INFECTIOUS DISEASE: Trend temperature. Hull-culture if febrile. Micro: [ ] Blood culture Urine culture Antibiotics: [ Meropenem] HEMATOLOGY & COAGULATION: Monitor H&H. Keep Hgb > 7 Transfuse 1 unit of PRBC for Hgb < 7 Transfuse 1 pack of platelets of platelets < 20, 000 Watch for any signs and symptoms of bleeding SKIN: Pressure ulcer prevention per facility protocol Rehab: PT/OT Prophylaxis: GI: [Protonix drip Sandostatin ] DVT: [ No chemical SCDs due to GI bleed, SCDs for now Code Status: Full Resuscitation Disposition: ICU ] Other: Critical care time This patient required multiple bedside visits to manage the patient, review blood gases, coordinate with respiratory, nurses, talk to Nephrology and Primary team, review radiology exams, talk to the family members and discuss advanced directives. I personally spent 120 minutes of critical care time in treatment of this patient. This includes patient management, time at bedside, time reviewing tests, labs, appropriate images and studies, documentation, and patient care coordination. This time excludes separately billable procedures. ATTESTATION BY PHYSICIAN I attest that I reviewed and discussed the case with the Physician Warp Knitter Helper as well as agree with the Physician Warp Knitter Helper's findings, plans of care, and documentation above. Chalino Larsen MD, NELLY J AGACNP Aug 29, 2025 16:03
[2025-08-29] MEDS: 0.9%NACL 1000ML 1,000 ML IV SCH ×2 (16:10→18:14)
--- NOTE | 2025-08-29 16:11 | PRN ---
[facility] Procedure Note [facility] Procedure Note Temporary Dialysis Catheter Procedure Note Date: 08/29/25 Time: 1500 Procedure performed: 1. Temporary Dialysis Catheter Insertion 2. Intraoperative Ultrasound Diagnosis: Acute kidney failure Respiratory failure Site: Right internal Jugular vein Description of procedure: Consent obtained from patient/ family. Hand hygiene. Time out done. Chlorhexidine was used to prepare the skin. Intraoperative US guidance was used during the procedure to localize vein and confirm placement of guidewire inside the vein prior to dilatation using sterile sheath to cover transducer to ensure sterility at all times. Regular Trialysis catheter 13fr 16 cm inserted with Seldinger technique on site specified above. Line secured with sutures x2 at the hub. Patient tolerated procedure well. No immediate complications. Post procedure Chest x ray was ordered. Procedure performed under the supervision of Dr Chalino Jeffery MD EBL: 0.75 mL LOBO RICKS AGACNP Aug 29, 2025 16:11
--- NOTE | 2025-08-29 16:46 | HMCIMG ---
EXAM: CR Chest, 2 View. CLINICAL HISTORY: central line placement COMPARISON: None provided. FINDINGS: Right IJ central venous catheter tip projects at the distal SVC. Right peripheral line overlies expected location of the right axillary vessels. LUNGS: The lungs show no infiltrate or other acute finding. Mild left basilar atelectasis. PLEURAL SPACES: No pleural effusion or pneumothorax. MEDIASTINUM: Cardiac size and mediastinal contours within normal limits. BONES: No aggressive appearing osseous lesion seen. Pigtail drainage catheter overlies the right upper quadrant. IMPRESSION: 1. Right IJ central venous catheter tip appropriately positioned in the distal SVC. 2. No acute cardiopulmonary findings. /[place]
[2025-08-29 17:28] LABS: IMMATURE GRANULOCYTE ABSOLUTE 0.08 K/uL (0-1); NUCLEATED RED BLOOD CELLS 0.0 % (0.0-0.19); PLATELET COUNT (AUTO) 229 K/uL (130-400); RED BLOOD CELL COUNT(AUTO) 3.63 MIL/uL (4.00-5.50); RED CELL DISTRIBUTION WIDTH 16.8 % (11.0-15.5); WHITE BLOOD COUNT (AUTO) 8.6 K/uL (4.8-10.8)
[2025-08-29] MEDS ORDERED: 0.9% NACL 250ML 250 ML IV SCH (17:30)
[2025-08-29] MEDS ORDERED: CYCL5TAB3 PO (17:36)
[2025-08-29 17:50] LABS: ASPARTATE AMINOTRANSFERASE 33.0 U/L (10-37); CREATININE 3.5 mg/dL (0.5-1.0); GLOMERULAR FILTR. RATE CALC 15.0 mL/min (>90); GLUCOSE,RANDOM 200.0 mg/dL (70-105); SODIUM SERUM 131.0 mmol/L (136-145); TOTAL PROTEIN, SERUM 6.8 g/dL (6.0-8.3); UREA NITROGEN, BLOOD 73.0 mg/dL (7-18)
--- NOTE | 2025-08-29 20:48 | CONS ---
GENERAL SURGERY CONSULTATION NOTE Date/Time Patient Seen: 08/29/252029 Requesting Physician: Dr. Perez Reason for Consultation: abdominal pain, GI bleed History of Present Illness: This is a 55-year-old female with a complicated medical history (cirrhosis, esophageal varices status post banding in May 2025, type 2 diabetes) who was recently discharged on Monday August 25, 2025 after being hospitalized from July 20 to August 25 2025 for a postoperative anastomotic leak requiring a diagnostic laparoscopy with loop ileostomy by my partner Dr. Jes Gann. She had a robotic sigmoid colectomy (for diverticulitis) with takedown of the colovesical fistula early July 2025. She was readmitted for a postoperative anastomotic leak and underwent diagnostic laparoscopy with loop ileostomy on July 21 2025. Her postoperative course was complicated by developing acute cholecystitis requiring cholecystostomy tube as well as a perisplenic abscess which was treated with percutaneous IR drainage. Per her daughter the patient has had poor appetite and poor p.o. intake and hydration since being discharged last Saturday. She has gotten progressively weaker and more lethargic. She developed coffee-ground emesis Saturday which worsened today. Patient is not on any blood thinners and there were no changes to her medications. Daughter states that she has had decreased urine output with almost black ileostomy output. She said the output has been increased. Per the patient her abdominal pain has been the same. Initial workup revealed evidence of severe dehydration, acute renal failure and metabolic acidosis. CT scan of the abdomen and pelvis did not show any acute surgical issues or complications. She does have a good amount of stool in her rectum. The anastomosis looks good there are no intra-abdominal fluid collections. Cholecystostomy tube in percutaneous splenic abscess drain are in place. The patient is currently in the ICU and undergoing dialysis. She is on octreotide and Protonix drip. She looked to be hemoconcentrated initially in the last hemoglobin hematocrit were 10.9 and 31 respectively. Past Medical History: Diabetes mellitius type 2, liver cirrhosis, esophageal varices, Recent history of hospitalization in [facility] [place] for acute cholecystitis requiring cholecystostomy tube placement, perisplenic abscess status post CT-guided drainage on 08/09/2025, EGD with findings of acute gastritis, septic shock, peritonitis with ESBL E coli infection] SOCIAL HISTORY: Negative for smoking, alcohol use, drug use. Patient lives with the daughter. SURGICAL HISTORY: Right knee surgery, on 07/09/2025 repair of colovesicular fistula with sigmoid colon resection and anastomosis, 07/21/2025: Bilious peritonitis w/ 2 mm perforation of the colonic anastomosis s/p Diagnostic laparoscopy, abdominal washout, drain placement and diverting loop ileostomy creation by Dr. Gann, During hospitalization in [facility] [place] from 07/20/2025-08/25/2025, patient underwent multiple procedures including cholecystostomy tube placement, perisplenic and infra- splenic fluid collection with IR guided drainage catheter placement on 08/09/2025 Coded Allergies: aspirin (Unverified Allergy, Unknown, 07/02/25) bismuth subsalicylate (Unverified Allergy, Unknown, 07/02/25) pork derived (porcine) (Unverified Allergy, Unknown, 07/02/25) Uncoded Allergies: BISMUTH (Allergy, Unknown, 07/02/25 Current Medications Medications (Trade) Dose Ordered Sig/Gregory Route Start Time Stop Time Status Last Admin Dose Admin Calcium Gluconate (Calcium Gluc 1gm Vial) 1 gm ONCE IV 08/29/25 09:30 08/29/25 09:23 DC Dextrose/Sodium Chloride 1,000 ml @ 0 mls/hr AD IV 08/29/25 12:30 08/29/25 16:05 DC Insulin Human Regular (humuLIN R 100 UNIT/ML 3ML) 5 unit ONCE IV 08/29/25 09:30 08/29/25 09:25 DC Insulin Human Regular (humuLIN R 100 UNIT/ML 3ML) INSULIN SLIDING SCAL... ACHS SQ 08/29/25 11:30 09/28/25 11:29 Insulin Human Regular 100 unit/ Sodium Chloride 101 ml @ 0 mls/hr PROTOCOL IV 08/29/25 12:30 08/29/25 16:05 DC Magnesium Sulfate 50 ml @ 0 mls/hr PROTOCOL IV 08/29/25 12:30 08/29/25 16:05 DC Meropenem (Merrem 500mg) 500 mg Q24H IVPB 08/29/25 10:00 08/31/25 09:59 08/29/25 13:44 500 MG Octreotide Acetate 1250 mcg/ Sodium Chloride 250 ml @ 0 mls/hr PROTOCOL IV 08/29/25 08:30 09/28/25 08:29 08/29/25 09:34 5 MLS/HR Pantoprazole Sodium 80 mg/ Sodium Chloride 100 ml @ 10 mls/hr Q10H IV 08/29/25 08:30 09/28/25 08:29 08/29/25 17:50 10 MLS/HR Pharmacy Profile Note (Pharmacy Communication) 1 each ONCE MISC 08/29/25 09:30 08/29/25 09:35 DC Sodium Bicarbonate 150 meq/Dextrose 1,150 ml @ 125 mls/hr Q9H12M IVP 08/29/25 10:00 09/28/25 09:59 08/29/25 20:20 125 MLS/HR Sodium Chloride 250 ml @ 0 mls/hr AD IV 08/29/25 17:30 09/28/25 17:29 Sodium Chloride 1,000 ml @ 0 mls/hr Q0M IV 08/29/25 16:00 08/29/25 16:03 DC Sodium Chloride 1,000 ml @ 0 mls/hr Q0M IV 08/29/25 16:00 09/28/25 15:59 08/29/25 16:10 500 MLS/HR Sodium Chloride 1,000 ml @ 75 mls/hr [id number] IV 08/29/25 18:30 09/28/25 18:29 08/29/25 18:14 75 MLS/HR Sodium Chloride 1,000 ml @ 125 mls/hr Q8H IV 08/29/25 09:30 08/29/25 09:57 DC Sodium Chloride 1,000 ml @ 200 mls/hr PROTOCOL IV 08/29/25 12:30 08/29/25 16:05 DC Sodium Chloride 1,000 ml @ 999 mls/hr Q1H1M IV 08/29/25 09:30 08/29/25 09:06 DC Thiamine HCl (Vitamin B-1) 200 mg Q12H IVP 08/29/25 09:30 09/02/25 09:30 08/29/25 20:39 200 MG Review of Systems: CONST: [No fever, fatigue, or weight changes.] EYES: [No recent vision problems.] ENT: [No congestion, ear pain, or sore throat.] C/V: [No chest pain, palpitations, or edema.] RESP: [No cough, congestion, wheezing or shortness of breath.] GI: [No abdominal pain, nausea, vomiting, constipation, or diarrhea.] : [No incontinence or dysuria.] SKIN: [No rash.] NEURO: [No headache, focal numbness or weakness, dizziness, or seizures.] PSYCH: [No depression or anxiety.] HEME: [No abnormal bruising or bleeding.] LYMPH: [No swollen glands.] Physical Examination: GENERAL: [No acute distress.] HEAD: [Normal with no signs of head trauma.] EYES: [PERRLA, EOMI, conjunctiva and sclera normal.] ENT: [Hearing grossly intact, normal oropharynx.] NECK: [Supple without JVD. There is no tenderness, lymphadenopathy, or masses. No thyromegaly. Normal carotid upstrokes without bruits.] LUNGS: [Clear breath sounds bilaterally. There are right basilar rales one third of the way up the chest. No wheezes, or rhonchi.] HEART: [Normal rate and rhythm. Normal S1 and S2 without mumurs, gallop or rub.] VASC: [Peripheral pulses +2 bilaterally.] ABD: [Bowel sounds normal, soft, nontender, no masses, no organomegaly. No audible bruits.] : [Not examined] LYMPH: [No lymphadenopathy noted.] EXT: [No clubbing, cyanosis or edema.] SKIN: [No rashes or lesions noted.] NEURO: [Awake, alert, and oriented x3. No focal sensory or strength deficits noted.] Vital Signs (last 8hr) Date Time Temp Pulse Resp B/P (MAP) Pulse Ox O2 Delivery O2 Flow Rate FiO2 08/29/25 20:15 86 20 98/52 100 Room Air 08/29/25 20:00 81 16 95/54 100 Room Air 08/29/25 19:45 80 18 89/47 100 Room Air 08/29/25 19:30 82 18 100/55 100 Room Air 08/29/25 19:15 80 18 95/54 100 Room Air 08/29/25 19:04 81 16 89/60 99 Room Air 08/29/25 19:00 82 16 87/38 100 Room Air 08/29/25 18:45 84 14 94/37 100 Room Air 08/29/25 18:38 79 18 N/A Room Air 21 08/29/25 18:30 81 14 112/63 99 Room Air 08/29/25 18:20 98.2 85 16 95/59 99 Room Air 08/29/25 18:00 83 18 95/59 99 Room Air 08/29/25 17:50 98.2 85 16 95/55 99 Room Air 08/29/25 17:30 83 18 92/52 100 Room Air 08/29/25 17:00 85 14 98/58 99 Room Air 08/29/25 16:30 82 17 107/58 100 Room Air 08/29/25 16:00 Room Air* 0 21 08/29/25 16:00 97.9 83 17 103/62 100 Room Air 08/29/25 15:30 81 15 106/72 100 Room Air 08/29/25 15:15 83 25 95/52 98 Room Air 08/29/25 15:00 85 22 94/57 98 Room Air 08/29/25 14:00 Room Air* 0 21 08/29/25 14:00 85 20 128/72 100 Room Air 08/29/25 13:45 90 19 100/70 100 Room Air 08/29/25 13:30 97.9 92 17 107/75 100 Room Air 08/29/25 13:04 97.2 100 22 94/60 97 Room Air* 0 21 Laboratory: [ ] Hematology Labs: Test 08/29/25 17:03 08/29/25 08:02 Range/Units White Blood Count 8.6 4.8-10.8 K/uL Red Blood Count 3.63 #L 4.00-5.50 MIL/uL Hemoglobin 10.9 #L 12.0-16.0 g/dL Hematocrit 31.5 #L 36-48 % Mean Corpuscular Volume 86.8 79-99 fL Mean Corpuscular Hemoglobin 30.0 27.0-33.0 pg Mean Corpuscular Hemoglobin Concent 34.6 32.0-36.0 g/dL Red Cell Distribution Width 16.8 H 11.0-15.5 % Platelet Count 229 # 130-400 K/uL Mean Platelet Volume 8.9 7.5-10.5 fL Immature Granulocyte % (Auto) 0.9 0-1 % Neutrophils (%) (Auto) 73.7 40.0-77.0 % Lymphocytes (%) (Auto) 16.6 L 21.0-51.0 % Monocytes (%) (Auto) 8.1 3.0-13.0 % Eosinophils (%) (Auto) 0.2 0.0-8.0 % Basophils (%) (Auto) 0.5 0.0-5.0 % Neutrophils # (Auto) 6.3 1.8-7.7 K/uL Lymphocytes # (Auto) 1.4 1.0-4.8 K/uL Monocytes # (Auto) 0.7 0.1-1.0 K/uL Eosinophils # (Auto) 0.02 0.00-0.70 K/uL Basophils # (Auto) 0.04 0.00-0.20 K/uL Absolute Immature Granulocyte (auto 0.08 0-1 K/uL Nucleated Red Blood Cells 0.0 0.0-0.19 % Erythrocyte Sedimentation Rate > 130 H 0-30 MM/HR Chemistry Labs: Test 08/29/25 17:03 08/29/25 14:05 08/29/25 12:32 08/29/25 11:39 Range/Units Sodium Level 131 L 136-145 mmol/L Potassium Level 4.2 3.5-5.1 mmol/L Chloride Level 99 L 101-111 mmol/L Carbon Dioxide Level 20 L 21-32 mmol/L Blood Urea Nitrogen 73 H 7-18 mg/dL Creatinine 3.5 H 0.5-1.0 mg/dL Glomerular Filtration Rate Calc 15 >90 mL/min Random Glucose 200 H 70-105 mg/dL Lactic Acid Level 2.5 0.8-2.5 mmol/L Total Calcium 8.2 L 8.5-10.1 mg/dL Total Bilirubin 0.7 # 0.2-1.0 mg/dL Aspartate Amino Transf (AST/SGOT) 33 10-37 U/L Alanine Aminotransferase (ALT/SGPT) 20 # 12-78 U/L Alkaline Phosphatase 180 #H 50-136 U/L Total Protein 6.8 # 6.0-8.3 g/dL Albumin 2.4 #L 3.5-5.0 g/dL Whole Blood Glucose 151 H 70-110 MG/DL Bedside Glucose Comment Notified Nurse Hemoglobin A1c 5.5 4.0-6.0 % Estimated Average Glucose (eAG) 111 70-126 mg/dL Whole Blood Ketones Quantitative 2.2 H 0.0-0.6 mmol/L Test 08/29/25 09:12 08/29/25 08:02 Range/Units Phosphorus Level 7.0 H 2.5-4.9 mg/dL Magnesium Level 2.40 1.80-2.40 mg/dL Direct Bilirubin 0.3 0.0-0.3 mg/dL Lactate Dehydrogenase 211 81-234 U/L C-Reactive Protein, Quantitative 6.00 H 0.5-3.0 mg/L Procalcitonin 0.33 0.05-0.5 ng/mL Ammonia 65 H 11-32 umol/L Total Creatine Kinase 26 21-232 U/L Troponin I High Sensitivity 13 4-50 ng/L Coagulation Labs: Test 08/29/25 08:02 Range/Units Prothrombin Time 13.2 H 9.6-11.6 SEC Prothromb Time International Ratio 1.28 H 0.85-1.15 Activated Partial Thromboplast Time 32.5 26.3-35.5 SEC Diagnostics / Radiology: EXAM: CT Abdomen and Pelvis Without IV contrast CLINICAL HISTORY: coffee ground emesis, hx of abdominal drain, nausea, vomiting, hx of cirrho TECHNIQUE: Axial computed tomography images of the abdomen and pelvis without intravenous contrast. CONTRAST: No IV contrast. COMPARISON: Study dated 08/23/25. FINDINGS: LUNG BASES: Tiny calcified nodules in the posterior basal segment of the right lower lobe. There is mild dependent airspace disease within the bilateral lower lobes that is presumed to reflect atelectasis. No pleural effusions are seen. LIVER: There is cirrhotic hepatic morphology. Several small esophageal varices are noted. GALLBLADDER AND BILE DUCTS: The gallbladder is decompressed with a cholecystostomy tube in place. No biliary ductal dilatation is evident. PANCREAS: Unremarkable. SPLEEN: 2.7 x 2.2 x 5.1 cm infrasplenic collection with adjacent fat stranding and pigtail tube in place. ADRENAL GLANDS: Unremarkable. KIDNEYS, URETERS, AND BLADDER: The kidneys appear within normal limits. There is no hydronephrosis or hydroureter. No urinary calculi are seen. Dueñas's bulb in the urinary bladder with few air foci. STOMACH AND BOWEL: 2.4 cm ileostomy defect in the right iliac fossa and postoperative changes in the bowel loops. No evidence of bowel obstruction. No evidence suggesting enteritis or colitis. APPENDIX: No evidence of acute appendicitis on CT examination. PERITONEUM: No free fluid. No free air. LYMPH NODES: No lymphadenopathy is evident. REPRODUCTIVE: Unremarkable as visualized. VASCULATURE: No evidence of abdominal aortic aneurysm. BONES: No aggressive appearing osseous lesion. No acute osseous pathology evident. Mild degenerative changes in the spine. IMPRESSION: 1. Cirrhotic hepatic morphology. Several small esophageal varices are noted. 2. 2.7 x 2.2 x 5.1 cm infrasplenic collection with adjacent fat stranding and pigtail tube in place. 3. Cholecystostomy tube in decompressed gallbladder. 4. Ileostomy in right iliac fossa with postoperative changes. Assessment: 55-year-old female recently discharged from the hospital after being admitted for a postoperative anastomotic leak and a postoperative course complicated by perisplenic abscess and acute cholecystitis who has developed with a looks to be an upper GI bleed, dehydration, acute renal failure, metabolic acidosis. She does not have an acute surgical abdomen. Plan: Agree with supportive management of the upper GI bleed (serial H&Hs, Protonix and octreotide drip, resuscitation, a GI consult for evaluation with endoscopy) Agree with supportive management of dehydration, acute renal failure and metabolic acidosis (nephrology consult for hemodialysis,) We will trend ileostomy output Surgery to follow closely ( will discuss patient with my partner Dr. Gann) TAMMI DENG MD Aug 29, 2025 20:48
[2025-08-29] MEDS: NOREPINEPHRINE BITARTRATE 32 MG in 0.9% NACL 250ML 250 ML IV STA (21:13)
--- NOTE | 2025-08-29 21:50 | HMCIMG ---
EXAM: RENAL AND URINARY BLADDER ULTRASOUND Technique: Grayscale and color Doppler sonography of both kidneys and the urinary bladder was performed. Study quality is adequate. Evaluation of the bladder and ureteral jets is limited by decompression from an indwelling catheter. Clinical Information: Severe renal failure. Findings: Right kidney: Measures 10.3 ??? 5.3 ??? 4.2 centimeters. Renal cortical thickness and echogenicity are within expected limits for technique. No focal mass is identified. No hydronephrosis. No renal calculi. No perinephric fluid collection. Left kidney: Measures 11.0 ??? 4.8 ??? 3.2 centimeters. The renal parenchyma is diffusely increased in echogenicity relative to the adjacent liver and spleen. No focal mass is identified. No hydronephrosis. No renal calculi. No perinephric fluid collection. Urinary bladder: Decompressed with a Dueñas catheter in situ. Bladder wall measures approximately 3 millimeters, which may appear relatively thick due to underdistention. No intraluminal mass or debris is identified on the limited evaluation. Impression: * Left kidney demonstrates increased parenchymal echogenicity, a nonspecific finding commonly associated with medical renal disease in the setting of renal failure. * No hydronephrosis or renal calculi identified bilaterally. * Decompressed urinary bladder with Dueñas catheter in place; apparent wall thickening likely related to underdistention. /Douglas
[2025-08-29 23:25] LABS: CREATININE 2.1 mg/dL (0.5-1.0); GLOMERULAR FILTR. RATE CALC 27.0 mL/min (>90); GLUCOSE,RANDOM 216.0 mg/dL (70-105); SODIUM SERUM 133.0 mmol/L (136-145); UREA NITROGEN, BLOOD 36.0 mg/dL (7-18)
[2025-08-30] VITALS (142 sets, daily range): BP systolic 74–152; BP diastolic 35–75; PULSE 7–102; RESP 10–73; TEMP 97.9–99.1; O2SAT 95–98
[2025-08-30 04:13] LABS: IMMATURE GRANULOCYTE ABSOLUTE 0.09 K/uL (0-1); NUCLEATED RED BLOOD CELLS 0.0 % (0.0-0.19); PLATELET COUNT (AUTO) 236 K/uL (130-400); RED BLOOD CELL COUNT(AUTO) 3.25 MIL/uL (4.00-5.50); RED CELL DISTRIBUTION WIDTH 16.8 % (11.0-15.5); WHITE BLOOD COUNT (AUTO) 10.5 K/uL (4.8-10.8)
[2025-08-30 04:25] LABS: ASPARTATE AMINOTRANSFERASE 38.0 U/L (10-37); CREATININE 1.8 mg/dL (0.5-1.0); GLOMERULAR FILTR. RATE CALC 32.0 mL/min (>90); GLUCOSE,RANDOM 253.0 mg/dL (70-105); LACTATE DEHYDROGENASE 133.0 U/L (81-234); SODIUM SERUM 134.0 mmol/L (136-145); TOTAL PROTEIN, SERUM 6.1 g/dL (6.0-8.3); UREA NITROGEN, BLOOD 35.0 mg/dL (7-18)
--- NOTE | 2025-08-30 04:26 | CONS ---
REFERRING PHYSICIAN: Dr. Gtz. I did discuss the case in detail with the primary team. HISTORY OF PRESENT ILLNESS: This is a 55-year-old female who was just recently discharged from the hospital. She has a history of cirrhosis with known varices. The patient was recently admitted to the hospital, status post sigmoid resection. The patient developed an underlying fistula. She was in the hospital requiring long-term antibiotics. The patient eventually was discharged to home. She returns back to the hospital with failure to thrive. The patient has been having poor oral intake and generalized fatigue. The patient also complained of significant abdominal pain. In the Emergency Room, the patient was found to have acute renal failure with significant metabolic acidosis and hyperkalemia, and the patient is being seen in consultation for all of the above. PAST MEDICAL HISTORY: Hypertension, diabetes mellitus, cirrhosis. PAST SURGICAL HISTORY: Abdominal surgery, drain placement. SOCIAL HISTORY: No alcohol or tobacco use. She lives in the family. FAMILY HISTORY: There is no renal disease in the family. ALLERGIES: She has multiple allergies, all of which were noted. REVIEW OF SYSTEMS: GENERAL: She is complaining of pain. HEENT: No change in vision. No change in hearing. CARDIOVASCULAR: There are no current chest pains or palpitations. PULMONARY: No shortness of breath. GASTROINTESTINAL: As described above. MUSCULOSKELETAL: Complaints of weakness. NEUROLOGIC: No seizures or focal deficit. PSYCHIATRIC: No history of hallucinations or psychosis. ENDOCRINE: No diabetes mellitus or thyroid disease. HEMATOLOGIC: History of anemia. No history of malignancy. PHYSICAL EXAMINATION: VITAL SIGNS: Blood pressure 142/91, pulse 90, she is afebrile. GENERAL: She is a chronically ill female, lying in bed in the ICU. HEENT: Head is atraumatic. Pupils are equal, round, and reactive to light. Oropharynx is without exudate. Nares clear. NECK: There is no JVP. There is no thyromegaly. No mass. CARDIOVASCULAR: Regular. There is no S3 or S4 gallop. LUNGS: Coarse with equal thoracic movement. ABDOMEN: Soft, nondistended, nontender. EXTREMITIES: Reveal no clubbing, no cyanosis. NEUROLOGIC: She is awake. She is alert. She is oriented. SKIN: Reveals no rashes or nodules. BACK: There is no CVA tenderness. No back deformities. LABORATORY DATA: Sodium 117, potassium 7, BUN 83, creatinine is 5, bicarb is 7, hemoglobin 13, and hematocrit 39. IMPRESSION: * Acute renal failure. * Hyperkalemia. * Metabolic acidosis. * Volume depletion. PLAN: I did have a long discussion with the primary team. The patient is started on a bicarb drip. The patient can be bolused, 2 L of saline. We will continue to follow closely. The patient with significant hyperkalemia and metabolic acidosis. No other options other than proceed with emergent dialysis with ICU place a Shaggy catheter and the patient can proceed with dialysis. She has been started back on her antibiotics. The patient eventually will be seen by Surgical Service. All labs can be repeated in the a.m. We will continue to follow closely. The patient and family at the bedside. Multiple questions were answered. TID: [id number] RECEIPT: [id number]
[2025-08-30] MEDS: MAGNESIUM 2GM PREMIX 50ML 50 ML IV SCH (10:18)
--- NOTE | 2025-08-30 10:40 | PN ---
[facility] PROGRESS NOTE Date Patient Seen: Aug 30, 2025 Time of Visit: 10:40 Supervising Physician: Richy Chin MD Primary Care Physician: Jes Olivera Outpatient Specialists: [ ] Inpatient Consults: [facility] PROBLEM LIST: severe sepsis progressed to Septic shock Multifactorial Acute metabolic acidosis Multifactorial Acute metabolic encephalopathy, POA GI bleed in the presence of esophageal varices Acute decompensated liver cirrhosis Hyperammonemia Hyponatremia Moderate protein malnutrition Severe dehydration Starvation ketosis Hyperglycemia in the presence of type 2 diabetes mellitus, POA 2.7 x 2.2 x 5.1 cm infrasplenic collection hx of acute cholecystitis, s/p cholecystostomy tube to right upper quadrant placement on 08/02/2025. Perisplenic abscess, s/p CT-guided drainage placement on 08/09/2025. History of bilious peritonitis with small colonic anastomosis perforation s/p diagnostic laparoscopy, abdominal washout, ileostomy creation by Dr. Gann, 07/21/2025 Gastritis Hx of Generalized peritonitis with ESBL E coli infection, POA Recent colovesical fistula repair with sigmoid colon resection and anastomosis on INTERVAL HISTORY: Patient is awake alert and oriented x3. Currently on Levophed at 0.1 mcg/kg per minute hemodynamically stable. She is currently on room air in no apparent distress saturating 98% continue with the IV fluids with the NS at 100 mL/hour. Other drips include Sandostatin and Protonix drip for hematemesis. Pending GI further recommendations. Per GI awaiting hemodynamics to improve without pressors. Urine output of 2.3 L in the last 24 hours left according drained 10 mL right abdomen cholecystostomy drain 5 mL. He CBC 40 ostomy drained 520 mL. H&H is stable 07/30.7 chemistry has been markedly improved sodium of 141 potassium of 2.9 covered with potassium protocol. Glucose of 140 mg/dL phosphorus 1.8 ammonia 34 total protein of 5.7 albumin of 2.1. Per nephrology no further hemodialysis at this time. Wean steroids,will add midodrine 10mg po TID. REVIEW OF SYSTEMS: Unable to perform perform due to patient's encephalopathic. PHYSICAL EXAM: GENERAL: Chronically ill, weak, debilitated, malnourished HEENT: EOMI, Sclera non icteric, dry mucosa NECK: Supple, no JVD, trachea midline LUNGS: Clear breath sounds bilaterally. No wheezes HEART: Regular rate and rhythm. Normal S1 and S2, without murmurs ABD: Abdomen soft, nontender. Bowel sounds present, right upper quadrant cholecystostomy tube, left upper quadrant accordion drain, ileostomy to right lower quadrant. EXT: No clubbing cyanosis or edema NEURO: GCS of 13. No focal weakness. Vital Signs (last 8hr) Date Time Temp Pulse Resp B/P (MAP) Pulse Ox O2 Delivery O2 Flow Rate FiO2 08/30/25 06:48 85 18 N/A Room Air 21 08/30/25 06:30 87 22 101/51 (68) 96 08/30/25 06:15 86 21 100/57 (71) 96 08/30/25 06:00 88 19 104/58 (73) 94 21 08/30/25 05:45 86 21 98/54 (69) 95 08/30/25 05:30 86 18 109/55 (73) 96 08/30/25 05:15 89 22 104/63 (77) 96 08/30/25 05:00 84 21 98/61 (73) 97 21 08/30/25 04:45 81 21 104/60 (75) 95 08/30/25 04:30 83 18 108/60 (76) 96 08/30/25 04:15 84 19 96/56 (69) 96 08/30/25 04:08 99.0 08/30/25 04:03 96 Room Air* 0 21 08/30/25 04:00 82 21 122/66 (84) 96 21 08/30/25 03:45 89 21 84/46 (59) 95 08/30/25 03:30 90 22 84/49 (61) 97 08/30/25 03:15 90 26 123/62 (82) 98 08/30/25 03:00 87 21 110/62 (78) 96 21 08/30/25 02:45 83 19 112/61 (78) 97 LABS: Hematology Labs: Test 08/30/25 03:46 08/29/25 08:02 Range/Units White Blood Count 10.5 4.8-10.8 K/uL Red Blood Count 3.25 L 4.00-5.50 MIL/uL Hemoglobin 9.9 L 12.0-16.0 g/dL Hematocrit 28.0 L 36-48 % Mean Corpuscular Volume 86.2 79-99 fL Mean Corpuscular Hemoglobin 30.5 27.0-33.0 pg Mean Corpuscular Hemoglobin Concent 35.4 32.0-36.0 g/dL Red Cell Distribution Width 16.8 H 11.0-15.5 % Platelet Count 236 130-400 K/uL Mean Platelet Volume 9.2 7.5-10.5 fL Immature Granulocyte % (Auto) 0.9 0-1 % Neutrophils (%) (Auto) 72.2 40.0-77.0 % Lymphocytes (%) (Auto) 15.6 L 21.0-51.0 % Monocytes (%) (Auto) 10.6 3.0-13.0 % Eosinophils (%) (Auto) 0.3 0.0-8.0 % Basophils (%) (Auto) 0.4 0.0-5.0 % Neutrophils # (Auto) 7.6 1.8-7.7 K/uL Lymphocytes # (Auto) 1.6 1.0-4.8 K/uL Monocytes # (Auto) 1.1 H 0.1-1.0 K/uL Eosinophils # (Auto) 0.03 0.00-0.70 K/uL Basophils # (Auto) 0.04 0.00-0.20 K/uL Absolute Immature Granulocyte (auto 0.09 0-1 K/uL Nucleated Red Blood Cells 0.0 0.0-0.19 % Erythrocyte Sedimentation Rate > 130 H 0-30 MM/HR Chemistry Labs: Test 08/30/25 09:26 08/30/25 03:46 08/29/25 20:40 08/29/25 12:32 Range/Units Whole Blood Glucose 230 #H 70-110 MG/DL Sodium Level 134 L 136-145 mmol/L Potassium Level 3.5 3.5-5.1 mmol/L Chloride Level 96 L 101-111 mmol/L Carbon Dioxide Level 31 21-32 mmol/L Blood Urea Nitrogen 35 H 7-18 mg/dL Creatinine 1.8 H 0.5-1.0 mg/dL Glomerular Filtration Rate Calc 32 >90 mL/min Random Glucose 253 H 70-105 mg/dL Total Calcium 7.3 L 8.5-10.1 mg/dL Magnesium Level 1.50 L 1.80-2.40 mg/dL Total Bilirubin 0.7 0.2-1.0 mg/dL Aspartate Amino Transf (AST/SGOT) 38 H 10-37 U/L Alanine Aminotransferase (ALT/SGPT) 22 12-78 U/L Alkaline Phosphatase 158 H 50-136 U/L Lactate Dehydrogenase 133 81-234 U/L Total Protein 6.1 6.0-8.3 g/dL Albumin 2.1 L 3.5-5.0 g/dL Lactic Acid Level 2.1 0.8-2.5 mmol/L Bedside Glucose Comment Notified Nurse Test 08/29/25 11:39 08/29/25 09:12 08/29/25 08:02 Range/Units Hemoglobin A1c 5.5 4.0-6.0 % Estimated Average Glucose (eAG) 111 70-126 mg/dL Whole Blood Ketones Quantitative 2.2 H 0.0-0.6 mmol/L Phosphorus Level 7.0 H 2.5-4.9 mg/dL Direct Bilirubin 0.3 0.0-0.3 mg/dL C-Reactive Protein, Quantitative 6.00 H 0.5-3.0 mg/L Procalcitonin 0.33 0.05-0.5 ng/mL Ammonia 65 H 11-32 umol/L Total Creatine Kinase 26 21-232 U/L Troponin I High Sensitivity 13 4-50 ng/L Coagulation Labs: Test 08/29/25 08:02 Range/Units Prothrombin Time 13.2 H 9.6-11.6 SEC Prothromb Time International Ratio 1.28 H 0.85-1.15 Activated Partial Thromboplast Time 32.5 26.3-35.5 SEC DIAGNOSTICS / RADIOLOGY RESULTS: [ ] [facility] [address] [place] [id number] IMAGING REPORT Signed PATIENT: DALLAS BUCHANAN MR#: [id number] : 1970 SEX: F AGE: 55 LOCATION: 2CV ORDER 2300 STATUS: ADM IN REPORT#: [id number] SERVICE 0600 REASON: hypoxic ORDERING PHYSICIAN: LOBO RICKS PROCEDURE: CXR1VW - CHEST 1VW EXAM: CR Chest, 1 View (Portable, Supine). CLINICAL HISTORY: Chest pain. COMPARISON: CR Chest, 2 View ??? 08/30/2025 01:13 AM EDT. FINDINGS: LUNGS: Lungs are clear. No focal consolidation, pulmonary edema, or acute infiltrate. PLEURAL SPACES: No pleural effusion or pneumothorax. MEDIASTINUM: Cardiac size and mediastinal contours within normal limits. Right internal jugular central venous catheter remains in similar position with the tip projecting over the distal superior vena cava, unchanged from prior. BONES: No acute osseous abnormality. LINES/DEVICES: Right IJ central venous catheter as described. Monitoring leads noted. No new devices identified. IMPRESSION: * Stable position of right IJ central venous catheter with tip at distal SVC. * No pneumothorax or acute cardiopulmonary abnormality. * No significant interval change compared with 08/30/2025 . /Lamoure DICTATED BY: EDWIGE LEDESMA MD DATE: 08/31/251851 ELECTRONICALLY SIGNED BY: EDWIGE LEDESMA MD DATE: 08/31/251851 PLAN Continue ICU management Follow nephrology recommendations wean steroids add midodrine 10 mg tid PO Follow Nephrology recommendations Follow General surgery recommendations Monitor electrolytes and cover accordingly. Per GI EGD once blood pressure does not require vasopressor support. Aspiration precautions Monitor ammonia levels NEURO: Minimize central acting medications as possible. Fall Precautions. Well lighted room through the day and minimize interruptions through the night to prevent acute delirium. PULMONARY: Supplemental 02 as needed Titrate Fio2 to keep Spo2 > or = 90% DuoNebs and CPT as needed IS hourly while awake for pulmonary hygiene Out of bed to chair as tolerated CARDIOVASCULAR: Follow hemodynamics. Titrate vasopressor to keep MAP >65 or systolic blood pressure >95mmHg Drips: Sodium bicarb drip LINES: PIV Transferred to right IJ Right upper quadrant cholecystostomy tube Left upper quadrant accordion drain Ileostomy to right lower quadrant GI & NUTRITION: Continue nutritional support Aspirations precautions Prokinetic agents and laxatives as needed KIDNEYS & ELECTROLYTES: Strict monitoring of intake and output Daily weights Avoid nephrotoxic agents Monitor electrolytes and replace as needed Goal urine output of 30mL/hr or 0.5mL/kg/hr Follow Nephrology recommendations Place Trialysis catheter per Nephrology recommendation next Case Dueñas catheter ENDOCRINE: Maintain blood glucose between 100-180 at all times. Insulin sliding scale for blood glucose management INFECTIOUS DISEASE: Trend temperature. Hull-culture if febrile. Micro: [ ] Blood culture Urine culture Antibiotics: [ Meropenem] HEMATOLOGY & COAGULATION: Monitor H&H. Keep Hgb > 7 Transfuse 1 unit of PRBC for Hgb < 7 Transfuse 1 pack of platelets of platelets < 20, 000 Watch for any signs and symptoms of bleeding SKIN: Pressure ulcer prevention per facility protocol Rehab: PT/OT Prophylaxis: GI: [Protonix drip Sandostatin ] DVT: [ No chemical SCDs due to GI bleed, SCDs for now Code Status: Full Resuscitation Disposition: ICU ] Other: Critical care time This patient required multiple bedside visits to manage the patient, review blood gases, coordinate with respiratory, nurses, talk to Nephrology and Primary team, review radiology exams, talk to the family members and discuss advanced directives. I personally spent 45 minutes of critical care time in treatment of this patient. This includes patient management, time at bedside, time reviewing tests, labs, appropriate images and studies, documentation, and patient care coordination. This time excludes separately billable procedures. ATTESTATION BY PHYSICIAN I have evaluated the patient chart, medical records, and spoke with appropriate staff. I reviewed the documentation, medical decision making, and treatment plan as noted by the mid-level provider above. I agree with the findings and plan of care. Richy Chin MD, [facility] Aug 30, 2025 10:40
--- NOTE | 2025-08-30 10:45 | NUR ---
DCP: HOME Pt undocumented and on [place] [employer] [facility]. Pt had dialysis treatment yesterday, per daughter will not need outpt HD. Pt lives with her daughter Jennifer Wood [phone] and pt's grandson in a mobile home with ramp. Prior to admission, pt was independent of all her ADLS, has cane, w/c, hospital bed and shower chair at home if needed. Pt has no in home care services. PCP is Danny Olivera at [facility] for medical care and meds. Uses [facility] or [facility] for rx needs. Family open to SNF if covered by [facility] [employer] Program, if not will return home. Cm made aware. Addendum: 08/30/25 at 1051 by FLY WILKINS Amended: Links added.
--- NOTE | 2025-08-30 12:53 | PN ---
pt s/p dialysis yesterday for CYNTHIA and GI bleed Hb stable pt on minimal pressors ostomy working with black tarry stools abd exam benign, drains in place with minimal output A/P had long discussion with pt about her finding on CT, the stool burden on the rectum and colon are normal. no acute findings around those. the fluid collection in the LUQ is smaller and once she is stable we can have IR eval for drain removal. we discussed that she need to have EGD to eval banding of varices and depending on the findings of the EGD the best things may be to place a PEG to ensure nutritions and hydration down the line. no surgical intervention at this time we will cont to follow closely spent over 30min with pt and her family. Vitals/Labs Vital Signs Date Time Temp Pulse Resp B/P (MAP) Pulse Ox O2 Delivery O2 Flow Rate FiO2 08/30/25 08:00 96 Room Air* 0 21 08/30/25 06:48 85 18 08/30/25 06:30 101/51 (68) 08/30/25 04:08 99.0 Laboratory Tests 08/29/25 17:03 08/29/25 23:06 08/30/25 03:46 Medications Current Medications Octreotide Acetate 50 mcg ONCE ONCE IV Last administered on 08/29/25at 09:02; Start 08/29/25 at 08:30; Stop 08/29/25 at 08:31; Status DC Octreotide Acetate 1250 mcg/ Sodium Chloride 250 ml @ 0 mls/hr PROTOCOL IV Last administered on 08/29/25at 09:34; Start 08/29/25 at 08:30; Stop 09/28/25 at 08:29 Pantoprazole Sodium 80 mg ONCE ONCE IVP Last administered on 08/29/25at 09:02; Start 08/29/25 at 08:30; Stop 08/29/25 at 08:31; Status DC Pantoprazole Sodium 80 mg/ Sodium Chloride 100 ml @ 10 mls/hr Q10H IV Last administered on 08/30/25at 02:39; Start 08/29/25 at 08:30; Stop 09/28/25 at 08:29 Promethazine HCl 25 mg ONCE ONCE IM Last administered on 08/29/25at 09:07; Start 08/29/25 at 08:30; Stop 08/29/25 at 08:33; Status DC Sodium Chloride 1,000 ml @ 999 mls/hr Q1H1M IV; Start 08/29/25 at 09:30; Stop 08/29/25 at 09:06; Status DC Calcium Gluconate 1 gm/Sodium Chloride 110 ml @ 110 mls/hr ONCE ONCE IV Last administered on 08/29/25at 09:41; Start 08/29/25 at 09:30; Stop 08/29/25 at 10:29; Status DC Dextrose 50 ml ONCE ONCE IV; Start 08/29/25 at 09:30; Stop 08/29/25 at 09:27; Status DC Insulin Human Regular 5 unit ONCE ONCE IV Last administered on 08/29/25at 09:57; Start 08/29/25 at 09:30; Stop 08/29/25 at 09:31; Status DC Albuterol Sulfate 10 mg ONCE ONCE IH Last administered on 08/29/25at 09:37; Start 08/29/25 at 09:30; Stop 08/29/25 at 09:31; Status DC Lactulose 200 gm ONCE ONCE SC; Start 08/29/25 at 09:30; Stop 08/29/25 at 09:36; Status DC Calcium Gluconate 1 gm ONCE IV; Start 08/29/25 at 09:30; Stop 08/29/25 at 09:23; Status DC Sodium Chloride 1,000 ml @ 125 mls/hr Q8H IV; Start 08/29/25 at 09:30; Stop 08/29/25 at 09:57; Status DC Insulin Human Regular 5 unit ONCE IV; Start 08/29/25 at 09:30; Stop 08/29/25 at 09:25; Status DC Dextrose 50 ml ONCE ONCE IV Last administered on 08/29/25at 09:47; Start 08/29/25 at 09:30; Stop 08/29/25 at 09:31; Status DC Sodium Bicarbonate 50 meq ONCE ONCE IV Last administered on 08/29/25at 09:47; Start 08/29/25 at 09:30; Stop 08/29/25 at 09:31; Status DC Pharmacy Profile Note 1 each ONCE MISC; Start 08/29/25 at 09:30; Stop 08/29/25 at 09:35; Status DC Ondansetron HCl 4 mg Q6H PRN IVP; Start 08/29/25 at 09:30; Stop 09/28/25 at 09:29 Thiamine HCl 200 mg Q12H IVP Last administered on 08/30/25at 09:46; Start 08/29/25 at 09:30; Stop 09/02/25 at 09:30 Meropenem 500 mg Q24H IVPB Last administered on 08/30/25at 09:46; Start 08/29/25 at 10:00; Stop 08/31/25 at 09:59 Sodium Chloride 1,000 ml @ 0 mls/hr ONCE ONCE IV Last administered on 08/29/25at 09:47; Start 08/29/25 at 10:00; Stop 08/29/25 at 10:01; Status DC Dextrose 50 ml AD PRN IV; Start 08/29/25 at 10:00; Stop 09/28/25 at 09:59 Glucagon 1 mg AD PRN IM; Start 08/29/25 at 10:00; Stop 09/28/25 at 09:59 Acetaminophen 650 mg Q6H PRN PO; Start 08/29/25 at 10:00; Stop 09/28/25 at 09:59 Albuterol 1 udvial Q6H PRN IH; Start 08/29/25 at 10:00; Stop 09/28/25 at 09:59 Sodium Bicarbonate 50 meq ONCE ONCE IV Last administered on 08/29/25at 10:12; Start 08/29/25 at 10:00; Stop 08/29/25 at 10:05; Status DC Sodium Bicarbonate 150 meq/Dextrose 1,150 ml @ 125 mls/hr Q9H12M IVP Last administered on 08/30/25at 08:07; Start 08/29/25 at 10:00; Stop 08/30/25 at 10:12; Status DC Insulin Human Regular INSULIN SLIDING SCAL... ACHS SQ Last administered on 08/30/25at 09:52; Start 08/29/25 at 11:30; Stop 09/28/25 at 11:29 Sodium Chloride 1,000 ml @ 0 mls/hr ONCE ONCE IV Last administered on 08/29/25at 13:44; Start 08/29/25 at 11:00; Stop 08/29/25 at 11:06; Status DC Sodium Chloride 1,000 ml @ 200 mls/hr PROTOCOL IV; Start 08/29/25 at 12:30; Stop 08/29/25 at 16:05; Status DC Magnesium Sulfate 50 ml @ 0 mls/hr PROTOCOL IV; Start 08/29/25 at 12:30; Stop 08/29/25 at 16:05; Status DC Insulin Human Regular 100 unit/ Sodium Chloride 101 ml @ 0 mls/hr PROTOCOL IV; Start 08/29/25 at 12:30; Stop 08/29/25 at 16:05; Status DC Dextrose/Sodium Chloride 1,000 ml @ 0 mls/hr AD IV; Start 08/29/25 at 12:30; Stop 08/29/25 at 16:05; Status DC Potassium Chloride 100 ml @ 50 mls/hr AD PRN IV Last administered on 08/30/25at 00:36; Start 08/29/25 at 12:30; Stop 09/28/25 at 12:29 Lidocaine HCl 20 ml STK-MED ONCE .ROUTE; Start 08/29/25 at 14:24; Stop 08/29/25 at 14:25; Status DC Lidocaine HCl 20 ml STK-MED ONCE .ROUTE Last administered on 08/29/25at 15:59; Start 08/29/25 at 14:25; Stop 08/29/25 at 14:25; Status DC Sodium Chloride 1,000 ml @ 0 mls/hr Q0M IV; Start 08/29/25 at 16:00; Stop 08/29/25 at 16:03; Status DC Sodium Chloride 1,000 ml @ 0 mls/hr Q0M IV Last administered on 08/29/25at 16:10; Start 08/29/25 at 16:00; Stop 09/28/25 at 15:59 Sodium Chloride 250 ml @ 0 mls/hr AD IV; Start 08/29/25 at 17:30; Stop 09/28/25 at 17:29 Sodium Chloride 1,000 ml @ 0 mls/hr ONCE ONCE IV Last administered on 08/29/25at 19:57; Start 08/29/25 at 17:30; Stop 08/29/25 at 17:35; Status DC Sodium Chloride 1,000 ml @ 150 mls/hr Q6H40M IV Last administered on 08/29/25at 18:14; Start 08/29/25 at 18:30; Stop 09/28/25 at 18:29 Dexmedetomidine/ Sodium Chloride 400 mcg STK-MED ONCE IV; Start 08/29/25 at 19:56; Stop 08/29/25 at 19:56; Status DC Norepinephrine Bitartrate 32 mg/ Sodium Chloride 250 ml @ 0 mls/hr Q0M STAT IV Last administered on 08/29/25at 21:13; Start 08/29/25 at 21:01; Stop 08/29/25 at 21:07; Status DC Magnesium Sulfate 50 ml @ 0 mls/hr PROTOCOL IV Last administered on 08/30/25at 10:18; Start 08/30/25 at 10:00; Stop 09/29/25 at 09:59 SUSAN JHAVERI MD Aug 30, 2025 12:53
--- NOTE | 2025-08-30 14:35 | NUR ---
[facility] ICU Skin Assessment: Patient assessed by wound healing team. S/P sx, patient up in chair. Per primary nurse, patient with no wounds or skin breakdown noted. Assessment and recommendations provided to primary nurse. Education provided. Addendum: 09/01/25 at 1126 by LAKIA LUCIO RN RN/ Amended: Links added.
--- NOTE | 2025-08-30 16:49 | PN ---
[facility] PROGRESS NOTE Date of Service: Aug 30, 2025 Time of Service: 9:00 SUBJECTIVE: As per admission notes "50-year-old female with underlying history of type 2 diabetes mellitus, history of liver cirrhosis, prior history of esophageal varices requiring banding in May,, history of robotic sigmoid resection with takedown of colovesical fistula who was recently hospitalized in [facility] from 07/20/2025 - 08/25/2025 patient was found to have bilious peritonitis with 2 mm perforation of colonic anastomosis requiring diagnostic laparoscopy, abdominal washout and drain placement with creation of diverting loop ileostomy. Patient was hospitalized for about one month and subsequently required IR guided drain placement as well. She was just discharged from the hospital on 08/25/2025. Patient's daughter reports that patient was having nausea and vomiting with poor oral intake at home. She started to have coffee-ground emesis today and she also noticed some right streaks of blood with a coffee-ground emesis. Stool has also been dark in the ileostomy bag. Patient is having moderate intensity abdominal pain as well. She has not been taking any NSAIDs. Daughter reports that patient has been very weak since her discharge in very debilitated. Patient denies active chest pain. Denies active shortness of breath. On presentation to the hospital, patient was noted to be afebrile with T-max of 97.5 F, heart rate of 100, blood pressure of 127/91. [place] [address], hemoglobin of 16.4, platelet count of 595293. BMP was repeated twice, BMP showed sodium of 117, potassium 7.0, chloride of 88, CO2 of seven, BUN of 83, creatinine 5.0, blood glucose of 99, calcium 10.4. Blood gas showed pH of 7.28, bicarb of close to eight, CO2 of 18, lactic acid of three. Patient will be admitted to ICU. Patient is presenting with severe renal failure with hyperkalemia and severe metabolic acidosis. Patient also with concerns for upper GI bleeding with coffee-ground emesis. Patient remains critically ill consultation with Intensive Care, Nephrology, GI will be requested. We we will obtain a CT abdomen pelvis without contrast for further evaluation as well. Patient is critically ill. Plan of care was discussed with patient and daughter at bedside" 08/30/2025 Patient was seen and examined at bedside. Her blood pressure has been low, 88/54, heart rate 86. She is currently on Levophed 0.2 Mcg, octreotide, Protonix, sodium bicarbonate drip. She received 2nd hemodialysis session yesterday. As per Nephrology, she will continue to receive dialysis inpatient. Her high anion gap metabolic acidosis is improving with sodium 134, carbon dioxide 31, chloride 96. Her creatinine has trended down from 5-1.8. General surgery consult is on board and we will follow up with their recommendations. Additionally, in the light of history of liver cirrhosis with esophageal varices, her recent hematemesis will be evaluated with GI consult and possible endoscopy. We discussed this with the patient and her family members present besides. Patient is started on Merrem and blood culture, urine cultures show no growth so far. Her lactic acid has trended down from 3.1 to 2.1. REVIEW OF SYSTEMS CONSTITUTIONAL: malaise, poor oral intake NEUROLOGICAL: Denies headache, amaurosis fugax, motor weakness, sensory deficit, vertigo/spinning sensation, gait abnormalities, or tremors. ENT: No hearing loss, otalgia, otorrhea, rhinitis, rhinorrhea, hoarseness, or sore throat. CARDIOVASCULAR: Denies any exertional angina, dyspnea on exertion, orthopnea, paroxysmal nocturnal dyspnea, palpitations, life-threatening arrhythmias, claudication. PULMONARY: Denies any shortness of breath, cough, phlegm/sputum, hemoptysis, pleuritic chest pain. SLEEP: Denies morning headaches, daytime somnolence or napping. Denies difficulty falling asleep, staying asleep, waking from sleep. Denies knowledge of snoring. GASTROINTESTINAL: nausea, vomiting, abdominal pain, melena, coffee ground emesis GENITOURINARY: Urine output has been very low ENDOCRINOLOGIC: Denies polyuria, polydipsia, polyphagia or heat/cold intolerances. PHYSICAL EXAM GENERAL APPEARANCE: The patient is awake, alert, appears chronically ill and very debilitated NEUROLOGICAL: Cranial nerves II-XII grossly intact. Neurological examination is non focal with spontaneous movement of upper and lower extremities HEENT: Face is symmetric. Pupils are equal and reactive. Extraocular movements are intact. NECK: Supple. No JVD. No thyromegaly. No submental, submandibular, pre- /postauricular, occipital or supraclavicular lymphadenopathy. CHEST: Normal chest expansion. No Telemetry. LUNGS: Absence of any rales, rhonchi or any wheezing. CARDIOVASCULAR: Regular. S1 and S2 normal. No appreciable rubs, murmurs or gallops. ABDOMEN: tenderness to palpation of the epigastric region, non rebound noted, there is abdominal drains noted, accordion drain with sero-sanguinous drainage noted, very minimal : Deferred. No Dueñas. EXTREMITIES: Non-edematous and not cyanotic. No clubbing. Vital Signs (last 8hr) Date Time Temp Pulse Resp B/P (MAP) Pulse Ox O2 Delivery O2 Flow Rate FiO2 08/30/25 14:45 76 19 99 21 08/30/25 14:30 77 17 99 21 08/30/25 14:24 75 21 122/70 (87) 100 21 08/30/25 14:15 74 20 99 21 08/30/25 14:09 86 10 140/49 (79) 98 21 08/30/25 14:00 79 16 98 21 08/30/25 13:54 77 27 115/68 (84) 98 21 08/30/25 13:45 77 20 99 21 08/30/25 13:39 76 21 124/70 (88) 98 21 08/30/25 13:30 80 19 98 21 08/30/25 13:24 77 20 133/69 (90) 98 21 08/30/25 13:15 75 22 99 21 08/30/25 13:09 79 18 74/35 (48) 96 21 08/30/25 13:00 79 23 98 21 08/30/25 12:54 79 23 122/64 (83) 97 21 08/30/25 12:45 80 17 98 21 08/30/25 12:39 82 27 113/62 (79) 98 21 08/30/25 12:30 80 21 98 21 08/30/25 12:24 84 21 106/60 (75) 97 21 08/30/25 12:15 82 25 98 21 08/30/25 12:09 75 19 110/60 (77) 97 21 08/30/25 12:00 90 25 98 21 08/30/25 12:00 99.1 08/30/25 12:00 96 Room Air* 0 21 08/30/25 11:54 78 18 107/61 (76) 97 21 08/30/25 11:45 81 17 97 21 08/30/25 11:39 78 19 105/57 (73) 97 21 08/30/25 11:30 79 17 96 21 08/30/25 11:24 77 19 107/60 (76) 98 21 08/30/25 11:15 76 18 97 21 08/30/25 11:09 77 17 110/59 (76) 97 21 08/30/25 11:00 77 19 96 21 08/30/25 10:54 81 19 106/61 (76) 97 21 08/30/25 10:45 84 21 97 21 08/30/25 10:39 87 22 122/72 (89) 98 21 08/30/25 10:30 88 21 97 21 08/30/25 10:24 88 18 115/64 (81) 97 21 08/30/25 10:15 79 18 98 21 08/30/25 10:09 87 20 118/66 (83) 97 21 08/30/25 10:00 80 20 97 21 08/30/25 09:54 83 27 115/69 (84) 98 21 08/30/25 09:45 77 21 98 21 08/30/25 09:39 80 21 110/72 (85) 98 21 08/30/25 09:30 84 20 98 21 08/30/25 09:24 81 18 116/60 (78) 97 21 08/30/25 09:15 80 24 96 21 08/30/25 09:09 76 21 114/64 (81) 96 21 08/30/25 09:00 84 22 96 21 08/30/25 08:54 80 18 101/53 (69) 96 21 08/30/25 08:45 81 18 95 21 08/30/25 08:39 84 20 103/51 (68) 97 21 LABS: Laboratory: Test 08/30/25 11:51 08/30/25 03:46 08/29/25 20:40 08/29/25 12:54 Range/Units Whole Blood Glucose 163 H 70-110 MG/DL White Blood Count 10.5 4.8-10.8 K/uL Red Blood Count 3.25 L 4.00-5.50 MIL/uL Hemoglobin 9.9 L 12.0-16.0 g/dL Hematocrit 28.0 L 36-48 % Mean Corpuscular Volume 86.2 79-99 fL Mean Corpuscular Hemoglobin 30.5 27.0-33.0 pg Mean Corpuscular Hemoglobin Concent 35.4 32.0-36.0 g/dL Red Cell Distribution Width 16.8 H 11.0-15.5 % Platelet Count 236 130-400 K/uL Mean Platelet Volume 9.2 7.5-10.5 fL Immature Granulocyte % (Auto) 0.9 0-1 % Neutrophils (%) (Auto) 72.2 40.0-77.0 % Lymphocytes (%) (Auto) 15.6 L 21.0-51.0 % Monocytes (%) (Auto) 10.6 3.0-13.0 % Eosinophils (%) (Auto) 0.3 0.0-8.0 % Basophils (%) (Auto) 0.4 0.0-5.0 % Neutrophils # (Auto) 7.6 1.8-7.7 K/uL Lymphocytes # (Auto) 1.6 1.0-4.8 K/uL Monocytes # (Auto) 1.1 H 0.1-1.0 K/uL Eosinophils # (Auto) 0.03 0.00-0.70 K/uL Basophils # (Auto) 0.04 0.00-0.20 K/uL Absolute Immature Granulocyte (auto 0.09 0-1 K/uL Nucleated Red Blood Cells 0.0 0.0-0.19 % Sodium Level 134 L 136-145 mmol/L Potassium Level 3.5 3.5-5.1 mmol/L Chloride Level 96 L 101-111 mmol/L Carbon Dioxide Level 31 21-32 mmol/L Blood Urea Nitrogen 35 H 7-18 mg/dL Creatinine 1.8 H 0.5-1.0 mg/dL Glomerular Filtration Rate Calc 32 >90 mL/min Random Glucose 253 H 70-105 mg/dL Total Calcium 7.3 L 8.5-10.1 mg/dL Magnesium Level 1.50 L 1.80-2.40 mg/dL Total Bilirubin 0.7 0.2-1.0 mg/dL Aspartate Amino Transf (AST/SGOT) 38 H 10-37 U/L Alanine Aminotransferase (ALT/SGPT) 22 12-78 U/L Alkaline Phosphatase 158 H 50-136 U/L Lactate Dehydrogenase 133 81-234 U/L Total Protein 6.1 6.0-8.3 g/dL Albumin 2.1 L 3.5-5.0 g/dL Lactic Acid Level 2.1 0.8-2.5 mmol/L Urine Color DARK-YELLOW YELLOW Urine Appearance CLEAR CLEAR Urine pH 5.0 5.0-8.0 Urine Specific [place] 1.020 1.001-1.031 Urine Protein 20 H NEGATIVE mg/dL Urine Glucose (UA) NEGATIVE NEGATIVE mg/dL Urine Ketones NEGATIVE NEGATIVE mg/dL Urine Occult Blood NEGATIVE NEGATIVE Urine Nitrate NEGATIVE NEGATIVE Urine Bilirubin NEGATIVE NEGATIVE mg/dL Urine Urobilinogen 0.2 0.2-1.0 mg/dL Urine Leukocyte Esterase NEGATIVE NEGATIVE Regino/uL Urine RBC 2-5 H 0-1 /HPF Urine WBC 2-5 H 0-1 /HPF Urine Squamous Epithelial Cells RARE 0-2 /HPF Urine Bacteria RARE None Seen /HPF Urine Hyaline Casts 6-10 H 0-1 /LPF /LPF Urine Granular Casts (Auto) 11-25 H None Seen /LPF Urine Random Creatinine 242.85 H 30-135 mg/dL Urine Random Sodium < 13 L 40-220 mmol/l Test 08/29/25 12:32 08/29/25 11:39 08/29/25 09:13 08/29/25 09:12 Range/Units Bedside Glucose Comment Notified Nurse Hemoglobin A1c 5.5 4.0-6.0 % Estimated Average Glucose (eAG) 111 70-126 mg/dL Whole Blood Ketones Quantitative 2.2 H 0.0-0.6 mmol/L Blood Gas Specimen Type Arterial Arterial Blood pH 7.285 L 7.350-7.450 Arterial Blood Partial Pressure CO2 18 *L 32-45 mmHg Arterial Blood Partial Pressure O2 109.8 H 83.0-108.0 mmHg Arterial Blood HCO3 8.4 L 21.0-28.0 mmol/L Arterial Blood Oxygen Saturation 97.9 94.0-98.0 % Arterial Blood Base Excess -15.5 L -2.0-3.0 mmol/L Hemoglobin (Blood Gas) 15.5 12.0-16.0 g/dL Sodium (Blood Gas) 123 L 136-145 MMOL/L Bedside Potassium (Blood Gas) 6.7 *H 3.4-4.5 MMOL/L Bedside Chloride (Blood Gas) 96 L 98-107 MMOL/L Bedside Glucose (Blood Gas) 99 H 65-95 MG/DL Bedside Ionized Calcium (Blood Gas) 1.35 H 1.15-1.33 MMOL/L Bedside Lactic Acid (Blood Gas) 2.98 H 0.36-0.75 MMOL/L Blood Gas Temperature 37.0 35.5-37.0 CELSIUS Blood Gas Vent Mode RA ROOM AIR FiO2 21.0 % Blood Gas Specimen Comment RR, Phosphorus Level 7.0 H 2.5-4.9 mg/dL Direct Bilirubin 0.3 0.0-0.3 mg/dL C-Reactive Protein, Quantitative 6.00 H 0.5-3.0 mg/L Procalcitonin 0.33 0.05-0.5 ng/mL Test 08/29/25 08:02 Range/Units Erythrocyte Sedimentation Rate > 130 H 0-30 MM/HR Prothrombin Time 13.2 H 9.6-11.6 SEC Prothromb Time International Ratio 1.28 H 0.85-1.15 Activated Partial Thromboplast Time 32.5 26.3-35.5 SEC Ammonia 65 H 11-32 umol/L Total Creatine Kinase 26 21-232 U/L Troponin I High Sensitivity 13 4-50 ng/L Current Medications Medications (Trade) Dose Ordered Sig/Gregory Route PRN Reason Start Time Stop Time Status Last Admin Dose Admin Acetaminophen (TYLenol 325MG TAB) 650 mg Q6H PRN PO MILD PAIN (1-3) 08/29/25 10:00 09/28/25 09:59 Albuterol (DUOneb) 1 udvial Q6H PRN IH SHORTNESS OF BREATH 08/29/25 10:00 09/28/25 09:59 Calcium Gluconate (Calcium Gluc 1gm Vial) 1 gm ONCE IV 08/29/25 09:30 08/29/25 09:23 DC Dextrose (D50w) 50 ml AD PRN IV HYPOGLYCEMIA PROTOCOL 08/29/25 10:00 09/28/25 09:59 Dextrose/Sodium Chloride 1,000 ml @ 0 mls/hr AD IV 08/29/25 12:30 08/29/25 16:05 DC Glucagon (Glucagon 1mg Kit) 1 mg AD PRN IM HYPOGLYCEMIA PROTOCOL 08/29/25 10:00 09/28/25 09:59 Insulin Human Regular (humuLIN R 100 UNIT/ML 3ML) 5 unit ONCE IV 08/29/25 09:30 08/29/25 09:25 DC Insulin Human Regular (humuLIN R 100 UNIT/ML 3ML) INSULIN SLIDING SCAL... ACHS SQ 08/29/25 11:30 09/28/25 11:29 08/30/25 09:52 4 UNIT Insulin Human Regular 100 unit/ Sodium Chloride 101 ml @ 0 mls/hr PROTOCOL IV 08/29/25 12:30 08/29/25 16:05 DC Magnesium Sulfate 50 ml @ 0 mls/hr PROTOCOL IV 08/29/25 12:30 08/29/25 16:05 DC Magnesium Sulfate 50 ml @ 0 mls/hr PROTOCOL IV 08/30/25 10:00 09/29/25 09:59 08/30/25 10:18 25 MLS/HR Meropenem (Merrem 500mg) 500 mg Q24H IVPB 08/29/25 10:00 08/31/25 09:59 08/30/25 09:46 500 MG Norepinephrine Bitartrate 32 mg/ Sodium Chloride 250 ml @ 0 mls/hr Q0M STAT IV 08/29/25 21:01 08/29/25 21:07 DC 08/29/25 21:13 0 MLS/HR Octreotide Acetate 1250 mcg/ Sodium Chloride 250 ml @ 0 mls/hr PROTOCOL IV 08/29/25 08:30 09/28/25 08:29 08/29/25 09:34 5 MLS/HR Ondansetron HCl (zoFRAN 4MG INJ) 4 mg Q6H PRN IVP NAUSEA/VOMITING 08/29/25 09:30 09/28/25 09:29 Pantoprazole Sodium 80 mg/ Sodium Chloride 100 ml @ 10 mls/hr Q10H IV 08/29/25 08:30 09/28/25 08:29 08/30/25 13:30 10 MLS/HR Pharmacy Profile Note (Pharmacy Communication) 1 each ONCE MISC 08/29/25 09:30 08/29/25 09:35 DC Potassium Chloride 100 ml @ 50 mls/hr AD PRN IV POTASSIUM PROTOCOL 08/29/25 12:30 09/28/25 12:29 08/30/25 00:36 50 MLS/HR Sodium Bicarbonate 150 meq/Dextrose 1,150 ml @ 125 mls/hr Q9H12M IVP 08/29/25 10:00 08/30/25 10:12 DC 08/30/25 08:07 125 MLS/HR Sodium Chloride 250 ml @ 0 mls/hr AD IV 08/29/25 17:30 09/28/25 17:29 Sodium Chloride 1,000 ml @ 0 mls/hr Q0M IV 08/29/25 16:00 08/29/25 16:03 DC Sodium Chloride 1,000 ml @ 0 mls/hr Q0M IV 08/29/25 16:00 09/28/25 15:59 08/29/25 16:10 500 MLS/HR Sodium Chloride 1,000 ml @ 125 mls/hr Q8H IV 08/29/25 09:30 08/29/25 09:57 DC Sodium Chloride 1,000 ml @ 150 mls/hr Q6H40M IV 08/29/25 18:30 09/28/25 18:29 08/29/25 18:14 75 MLS/HR Sodium Chloride 1,000 ml @ 200 mls/hr PROTOCOL IV 08/29/25 12:30 08/29/25 16:05 DC Sodium Chloride 1,000 ml @ 999 mls/hr Q1H1M IV 08/29/25 09:30 08/29/25 09:06 DC Thiamine HCl (Vitamin B-1) 200 mg Q12H IVP 08/29/25 09:30 09/02/25 09:30 08/30/25 09:46 200 MG DIAGNOSTICS / RADIOLOGY: PATIENT: DALLAS BUCHANAN MR#: [id number] : 1970 SEX: F AGE: 55 LOCATION: 2CV ORDER 8 STATUS: ADM IN REPORT#: [id number] SERVICE 99 REASON: severe renal failure ORDERING PHYSICIAN: BRADEN CONTRERAS MD PROCEDURE: RENAL - US RENAL SONOGRAM EXAM: RENAL AND URINARY BLADDER ULTRASOUND Technique: Grayscale and color Doppler sonography of both kidneys and the urinary bladder was performed. Study quality is adequate. Evaluation of the bladder and ureteral jets is limited by decompression from an indwelling catheter. Clinical Information: Severe renal failure. Findings: Right kidney: Measures 10.3 ??? 5.3 ??? 4.2 centimeters. Renal cortical thickness and echogenicity are within expected limits for technique. No focal mass is identified. No hydronephrosis. No renal calculi. No perinephric fluid collection. Left kidney: Measures 11.0 ??? 4.8 ??? 3.2 centimeters. The renal parenchyma is diffusely increased in echogenicity relative to the adjacent liver and spleen. No focal mass is identified. No hydronephrosis. No renal calculi. No perinephric fluid collection. Urinary bladder: Decompressed with a Dueñas catheter in situ. Bladder wall measures approximately 3 millimeters, which may appear relatively thick due to underdistention. No intraluminal mass or debris is identified on the limited evaluation. Impression: * Left kidney demonstrates increased parenchymal echogenicity, a nonspecific finding commonly associated with medical renal disease in the setting of renal failure. * No hydronephrosis or renal calculi identified bilaterally. * Decompressed urinary bladder with Dueñas catheter in place; apparent wall thickening likely related to underdistention. /Ary DICTATED BY: EDWIGE LEDESMA MD DATE: 08/29/252248 ELECTRONICALLY SIGNED BY: EWDIGE LEDESMA MD DATE: 08/29/252248 PATIENT: DALLAS BUCHANAN MR#: [id number] : 1970 SEX: F AGE: 55 LOCATION: 2CV ORDER 154 STATUS: ADM IN REPORT#: [id number] SERVICE 153 REASON: central line placement ORDERING PHYSICIAN: LOBO RICKS PROCEDURE: CXR1VW - CHEST 1VW EXAM: CR Chest, 2 View. CLINICAL HISTORY: central line placement COMPARISON: None provided. FINDINGS: Right IJ central venous catheter tip projects at the distal SVC. Right peripheral line overlies expected location of the right axillary vessels. LUNGS: The lungs show no infiltrate or other acute finding. Mild left basilar atelectasis. PLEURAL SPACES: No pleural effusion or pneumothorax. MEDIASTINUM: Cardiac size and mediastinal contours within normal limits. BONES: No aggressive appearing osseous lesion seen. Pigtail drainage catheter overlies the right upper quadrant. IMPRESSION: 1. Right IJ central venous catheter tip appropriately positioned in the distal SVC. 2. No acute cardiopulmonary findings. /Ary DICTATED BY: ELDON MILLER Jr., MD DATE: 08/29/251744 ELECTRONICALLY SIGNED BY: ELDON MILLER Jr., MD DATE: 08/29/251744 PATIENT: DALLAS BUCHANAN MR#: [id number] : 1970 SEX: F AGE: 55 LOCATION: 2CV ORDER 9 STATUS: ADM IN REPORT#: [id number] SERVICE 7 REASON: coffee ground emesis, hx of abdominal drain, nausea, vomiting, hx of cirrho ORDERING PHYSICIAN: BRADEN CONTRERAS MD PROCEDURE: ABD PEL WO - CT ABDOMEN/PELVIS W/O CONTRAST EXAM: CT Abdomen and Pelvis Without IV contrast CLINICAL HISTORY: coffee ground emesis, hx of abdominal drain, nausea, vomiting, hx of cirrho TECHNIQUE: Axial computed tomography images of the abdomen and pelvis without intravenous contrast. CONTRAST: No IV contrast. COMPARISON: Study dated 08/23/25. FINDINGS: LUNG BASES: Tiny calcified nodules in the posterior basal segment of the right lower lobe. There is mild dependent airspace disease within the bilateral lower lobes that is presumed to reflect atelectasis. No pleural effusions are seen. LIVER: There is cirrhotic hepatic morphology. Several small esophageal varices are noted. GALLBLADDER AND BILE DUCTS: The gallbladder is decompressed with a cholecystostomy tube in place. No biliary ductal dilatation is evident. PANCREAS: Unremarkable. SPLEEN: 2.7 x 2.2 x 5.1 cm infrasplenic collection with adjacent fat stranding and pigtail tube in place. ADRENAL GLANDS: Unremarkable. KIDNEYS, URETERS, AND BLADDER: The kidneys appear within normal limits. There is no hydronephrosis or hydroureter. No urinary calculi are seen. Dueñas's bulb in the urinary bladder with few air foci. STOMACH AND BOWEL: 2.4 cm ileostomy defect in the right iliac fossa and postoperative changes in the bowel loops. No evidence of bowel obstruction. No evidence suggesting enteritis or colitis. APPENDIX: No evidence of acute appendicitis on CT examination. PERITONEUM: No free fluid. No free air. LYMPH NODES: No lymphadenopathy is evident. REPRODUCTIVE: Unremarkable as visualized. VASCULATURE: No evidence of abdominal aortic aneurysm. BONES: No aggressive appearing osseous lesion. No acute osseous pathology evident. Mild degenerative changes in the spine. IMPRESSION: 1. Cirrhotic hepatic morphology. Several small esophageal varices are noted. 2. 2.7 x 2.2 x 5.1 cm infrasplenic collection with adjacent fat stranding and pigtail tube in place. 3. Cholecystostomy tube in decompressed gallbladder. 4. Ileostomy in right iliac fossa with postoperative changes. /Ary DICTATED BY: ELDON MILLER Jr., MD DATE: 08/29/251619 ELECTRONICALLY SIGNED BY: ELDON MILLER Jr., MD DATE: 08/29/251619 ASSESSMENT: Hypovolemic hypochloremic hyponatremia, POA Hemorrhagic shock - requiring vasopressor support Acute upper GI bleeding- Hematemesis, dark output from ileostomy bag, POA Severe hyperkalemia, POA Multifactorial anion gap metabolic acidosis, POA Hyperammonemia, POA Lactic acidosis, POA Hyperphosphatemia, POA Acute renal failure, POA Starvation Ketoacidosis, POA Rule out occult sepsis, POA Recent extended hospitalization in [facility], 07/20/2025- 08/25/2025 for sepsis, acute abdomen, POA Severe Dehydration, POA History of esophageal varices, POA Decompensated liver cirrhosis, POA hx of acute cholecystitis, s/p cholecystostomy tube placement on 08/02/2025. Perisplenic abscess, s/p CT-guided drainage placement on 08/09/2025. 2.7 x 2.2 x 5.1 cm infrasplenic collection History of gastritis, POA Hx of Generalized peritonitis with ESBL E coli infection, POA Moderate Protein calorie malnutrition POA History of bilious peritonitis with small colonic anastomosis perforation s/p diagnostic laparoscopy, abdominal washout, ileostomy creation by Dr. Gann, 07/21/2025 Hx of DM II, POA Recent colovesical fistula repair with sigmoid colon resection and anastomosis on PLAN: Hypovolemic hypochloremic hyponatremia, Severe hyperkalemia, Multifactorial anion gap metabolic acidosis - On presentation, patient's potassium was 6.8. She received calcium gluconate as well as insulin. Her potassium has improved to 3.5. Follow up with morning a.m. labs. - On presentation, sodium was 119, chloride 87, carbon dioxide 13, consistent with high anion gap metabolic acidosis. Her creatinine was 5, BUN 80 consistent with acute renal failure. - Patient received sodium bicarbonate, sodium chloride as well as hemodialysis session yesterday. - As per Nephrology, patient will continue to receive dialysis session during inpatient hospitalization. - Her sodium has improved to 134, chloride 96, CO2 31. (08/30) - Due to hypotension, patient is currently on Levophed 0.2 mcg. She is also maintained on sodium chloride maintenance - Follow up with GI and General surgery consult. - Monitor drain output as well as for any signs of infection. - Monitor input and output as well as daily weights. - Follow up with morning a.m. labs. Acute upper GI bleeding- Hematemesis, dark output from ileostomy bag - Patient is maintained on octreotide as well as Protonix drip. - Follow up with GI consult. Patient will require endoscopy to evaluate variceal bleed. - Trend hemoglobin and keep it above 7. Patient's hemoglobin 9.9 (08/30) - Keep map above 65. Patient is currently on Levophed. - The patient NPO until more alert Lactic acidosis, starvation acidosis, rule out sepsis. - Follow up with blood culture and urine culture. - Patient's WBCs are 10.5. - Continue Merrem. - Keep patient hydrated with sodium chloride. Acute renal failure - On Presentation, patient's creatinine was 5, BUN 80. - Patient received hemodialysis session yesterday. As per Nephrology, she will continue to receive renal replacement therapy during admission. - Her creatinine and BUN have improved to 1.8 and 35 respectively (08/30) - Monitor a.m. labs and follow up with Nephrology recommendations. Hemorrhagic shock Patient's blood pressure dropped to 88/54. He is maintained on Levophed 0.2 mcg. Give normal saline maintenance fluid Keep map above 65. Transfuse hemoglobin to keep it above 7. ATTESTATION BY PHYSICIAN I have seen and examined the patient. I reviewed the documentation, medical decision making, and treatment plan as noted by the resident physician above. I agree with the findings and plan of care. AYAKA BARR MD, MUHAMMAD H MD Aug 30, 2025 16:49
--- NOTE | 2025-08-30 18:02 | CONS ---
GASTROENTEROLOGY CONSULTATION NOTE Date of Consultation: Aug 30, 2025 Time of Consultation: 17:55 History of Present Illness: This is a 55-year-old female patient with past medical history for liver cirrhosis, esophageal varices, type 2 diabetes, hypertension, who presented to the emergency room with complaints of nausea and vomiting. Patient also has history of colon surgery for fistula repair and has diverting ileostomy. We were consulted for GI bleed. Patient's WBC of 10.5, hemoglobin has trended down from 16.4 to 9.9, platelets 236. Chemistries significant for sodium of 134, chloride 96, BUN 35, creatinine 1.8, glucose two three, calcium 7.3, Mag 1.5. Total bilirubin 0.7, AST 38, alkaline phosphatase 158, albumin 2.1. PT 13.2, INR 1.28. Chest x-ray negative for any cardiopulmonary pathology. CT of abdomen and pelvis thirty-two significant for cirrhotic hepatic morphology. Several small esophageal varices are noted. 2.7 x 2.2 x 5.1 cm inferior splenic collection with adjacent fat stranding and pigtail tube in place. Cholecystectomy tube in decompressed gallbladder. Ileostomy in right iliac fossa with postoperative changes. Patient's last EGD on 08/05/2025 showing LA grade B esophagitis with no bleeding found in the lower 3rd of the esophagus. Small varices with no bleeding and no stigmata of recent bleeding were found in the lower 3rd of the esophagus. Acute gastritis.Patient currently receiving meropenem, pantoprazole drip, Sandostatin drip. On exam patient is asleep but awakened for visit. Respirations are unlabored. Bilateral breath sounds are clear. Abdomen is soft and nondistended. Daughter at bedside and informed them EGD will be scheduled when patient is off of pressors and status improved. Patient is currently on Levophed at 0.1mcg/kg/min. Patient and daughter verbalized understanding and agreement. Review of Systems: CONSTITUTIONAL: No malaise or change in sensation of wellbeing. ENMT: No rhinorrhea, otorrhea, sinus pain, ear ache. CARDIOVASCULAR: No angina, palpitations, orthopnea or paroxysmal dyspnea. RESPIRATORY: No SOB. GASTROINTESTINAL: No abdominal pain, nausea, vomiting, diarrhea, hematemesis, melena or change in the patient's habitual bowel movements consistency/number. GENITOURINARY: No dysuria, hematuria or change in bladder continence. MUSCULOSKELETAL: No new muscle pain or decrease in muscular strength. No new joint swelling, redness or tenderness. SKIN: No new rash. Past Medical History: [Diabetes mellitius type 2, liver cirrhosis, esophageal varices, Recent history of hospitalization in [facility] for acute cholecystitis requiring cholecystostomy tube placement, perisplenic abscess status post CT-guided drainage on 08/09/2025, EGD with findings of acute gastritis, septic shock, peritonitis with ESBL E coli infection] SOCIAL HISTORY: [Negative for smoking, alcohol use, drug use. Patient lives with the daughter. Since discharge from the hospital, patient has been very weak and debilitated] SURGICAL HISTORY: [Right knee surgery, on 07/09/2025 repair of colo vesicular fistula with sigmoid colon resection and anastomosis, 07/21/2025: Bilious peritonitis w/ 2 mm perforation of the colonic anastomosis s/p Diagnostic laparoscopy, abdominal washout, drain placement and diverting loop ileostomy creation by Dr. Gann, During hospitalization in [facility] from 07/20/2025-08/25/2025, patient underwent multiple procedures including cholecystostomy tube placement, perisplenic and infra- splenic fluid collection with IR guided drainage catheter placement on 08/09/2025} Coded Allergies: aspirin (Unverified Allergy, Unknown, 07/02/25) bismuth subsalicylate (Unverified Allergy, Unknown, 07/02/25) pork derived (porcine) (Unverified Allergy, Unknown, 07/02/25) Uncoded Allergies: BISMUTH (Allergy, Unknown, 07/02/25) Physical Exam: GEN: Awake, alert, oriented in person, time and place, and in no acute distress. HEENT: No rhinorrhea. Oral mucosa is moist. CHEST: Lung auscultation revealed normal breath sounds bilaterally. CARDIAC:Heart sounds are regular. ABD: Soft, non-tender and not distended. No peritoneal signs on palpation. Normal bowel sounds. Ileostomy in place with watery output. Last bm: 08/30/25 EXT: No cyanosis or clubbing. No edema. SKIN: Intact. No rashes. NEURO: Alert and oriented to name, place and person.No focal motor deficits. Normal speech. Vital Sign (Last 24 Hours) 08/30/25 08/30/25 08/30/25 12:00 16:09 16:15 Pulse 80 Resp 22 B/P (MAP) 125/68 (87) Pulse Ox 99 O2 Delivery Room Air* O2 Flow Rate 0 FiO2 21 Intake & Output (last 24hrs) 08/29/25 08/29/25 08/30/25 15:00 23:00 07:00 Intake Total 1970.0 ml 1579.5 ml 1788.2 ml Output Total 350 ml 430 ml Balance 1970.0 ml 1229.5 ml 1358.2 ml Laboratory: [ ] Laboratory: Test 08/30/25 16:50 08/30/25 03:46 08/29/25 20:40 08/29/25 12:54 Range/Units Whole Blood Glucose 127 H 70-110 MG/DL White Blood Count 10.5 4.8-10.8 K/uL Red Blood Count 3.25 L 4.00-5.50 MIL/uL Hemoglobin 9.9 L 12.0-16.0 g/dL Hematocrit 28.0 L 36-48 % Mean Corpuscular Volume 86.2 79-99 fL Mean Corpuscular Hemoglobin 30.5 27.0-33.0 pg Mean Corpuscular Hemoglobin Concent 35.4 32.0-36.0 g/dL Red Cell Distribution Width 16.8 H 11.0-15.5 % Platelet Count 236 130-400 K/uL Mean Platelet Volume 9.2 7.5-10.5 fL Immature Granulocyte % (Auto) 0.9 0-1 % Neutrophils (%) (Auto) 72.2 40.0-77.0 % Lymphocytes (%) (Auto) 15.6 L 21.0-51.0 % Monocytes (%) (Auto) 10.6 3.0-13.0 % Eosinophils (%) (Auto) 0.3 0.0-8.0 % Basophils (%) (Auto) 0.4 0.0-5.0 % Neutrophils # (Auto) 7.6 1.8-7.7 K/uL Lymphocytes # (Auto) 1.6 1.0-4.8 K/uL Monocytes # (Auto) 1.1 H 0.1-1.0 K/uL Eosinophils # (Auto) 0.03 0.00-0.70 K/uL Basophils # (Auto) 0.04 0.00-0.20 K/uL Absolute Immature Granulocyte (auto 0.09 0-1 K/uL Nucleated Red Blood Cells 0.0 0.0-0.19 % Sodium Level 134 L 136-145 mmol/L Potassium Level 3.5 3.5-5.1 mmol/L Chloride Level 96 L 101-111 mmol/L Carbon Dioxide Level 31 21-32 mmol/L Blood Urea Nitrogen 35 H 7-18 mg/dL Creatinine 1.8 H 0.5-1.0 mg/dL Glomerular Filtration Rate Calc 32 >90 mL/min Random Glucose 253 H 70-105 mg/dL Total Calcium 7.3 L 8.5-10.1 mg/dL Magnesium Level 1.50 L 1.80-2.40 mg/dL Total Bilirubin 0.7 0.2-1.0 mg/dL Aspartate Amino Transf (AST/SGOT) 38 H 10-37 U/L Alanine Aminotransferase (ALT/SGPT) 22 12-78 U/L Alkaline Phosphatase 158 H 50-136 U/L Lactate Dehydrogenase 133 81-234 U/L Total Protein 6.1 6.0-8.3 g/dL Albumin 2.1 L 3.5-5.0 g/dL Lactic Acid Level 2.1 0.8-2.5 mmol/L Urine Color DARK-YELLOW YELLOW Urine Appearance CLEAR CLEAR Urine pH 5.0 5.0-8.0 Urine Specific [place] 1.020 1.001-1.031 Urine Protein 20 H NEGATIVE mg/dL Urine Glucose (UA) NEGATIVE NEGATIVE mg/dL Urine Ketones NEGATIVE NEGATIVE mg/dL Urine Occult Blood NEGATIVE NEGATIVE Urine Nitrate NEGATIVE NEGATIVE Urine Bilirubin NEGATIVE NEGATIVE mg/dL Urine Urobilinogen 0.2 0.2-1.0 mg/dL Urine Leukocyte Esterase NEGATIVE NEGATIVE Regino/uL Urine RBC 2-5 H 0-1 /HPF Urine WBC 2-5 H 0-1 /HPF Urine Squamous Epithelial Cells RARE 0-2 /HPF Urine Bacteria RARE None Seen /HPF Urine Hyaline Casts 6-10 H 0-1 /LPF /LPF Urine Granular Casts (Auto) 11-25 H None Seen /LPF Urine Random Creatinine 242.85 H 30-135 mg/dL Urine Random Sodium < 13 L 40-220 mmol/l Test 08/29/25 12:32 08/29/25 11:39 08/29/25 09:13 08/29/25 09:12 Range/Units Bedside Glucose Comment Notified Nurse Hemoglobin A1c 5.5 4.0-6.0 % Estimated Average Glucose (eAG) 111 70-126 mg/dL Whole Blood Ketones Quantitative 2.2 H 0.0-0.6 mmol/L Blood Gas Specimen Type Arterial Arterial Blood pH 7.285 L 7.350-7.450 Arterial Blood Partial Pressure CO2 18 *L 32-45 mmHg Arterial Blood Partial Pressure O2 109.8 H 83.0-108.0 mmHg Arterial Blood HCO3 8.4 L 21.0-28.0 mmol/L Arterial Blood Oxygen Saturation 97.9 94.0-98.0 % Arterial Blood Base Excess -15.5 L -2.0-3.0 mmol/L Hemoglobin (Blood Gas) 15.5 12.0-16.0 g/dL Sodium (Blood Gas) 123 L 136-145 MMOL/L Bedside Potassium (Blood Gas) 6.7 *H 3.4-4.5 MMOL/L Bedside Chloride (Blood Gas) 96 L 98-107 MMOL/L Bedside Glucose (Blood Gas) 99 H 65-95 MG/DL Bedside Ionized Calcium (Blood Gas) 1.35 H 1.15-1.33 MMOL/L Bedside Lactic Acid (Blood Gas) 2.98 H 0.36-0.75 MMOL/L Blood Gas Temperature 37.0 35.5-37.0 CELSIUS Blood Gas Vent Mode RA ROOM AIR FiO2 21.0 % Blood Gas Specimen Comment DR.REYNA TAL Phosphorus Level 7.0 H 2.5-4.9 mg/dL Direct Bilirubin 0.3 0.0-0.3 mg/dL C-Reactive Protein, Quantitative 6.00 H 0.5-3.0 mg/L Procalcitonin 0.33 0.05-0.5 ng/mL Test 08/29/25 08:02 Range/Units Erythrocyte Sedimentation Rate > 130 H 0-30 MM/HR Prothrombin Time 13.2 H 9.6-11.6 SEC Prothromb Time International Ratio 1.28 H 0.85-1.15 Activated Partial Thromboplast Time 32.5 26.3-35.5 SEC Ammonia 65 H 11-32 umol/L Total Creatine Kinase 26 21-232 U/L Troponin I High Sensitivity 13 4-50 ng/L Current Medications Medications (Trade) Dose Ordered Sig/Gregory Route PRN Reason Start Time Stop Time Status Last Admin Dose Admin Acetaminophen (TYLenol 325MG TAB) 650 mg Q6H PRN PO MILD PAIN (1-3) 08/29/25 10:00 09/28/25 09:59 Albuterol (DUOneb) 1 udvial Q6H PRN IH SHORTNESS OF BREATH 08/29/25 10:00 09/28/25 09:59 Calcium Gluconate (Calcium Gluc 1gm Vial) 1 gm ONCE IV 08/29/25 09:30 08/29/25 09:23 DC Dextrose (D50w) 50 ml AD PRN IV HYPOGLYCEMIA PROTOCOL 08/29/25 10:00 09/28/25 09:59 Dextrose/Sodium Chloride 1,000 ml @ 0 mls/hr AD IV 08/29/25 12:30 08/29/25 16:05 DC Glucagon (Glucagon 1mg Kit) 1 mg AD PRN IM HYPOGLYCEMIA PROTOCOL 08/29/25 10:00 09/28/25 09:59 Insulin Human Regular (humuLIN R 100 UNIT/ML 3ML) 5 unit ONCE IV 08/29/25 09:30 08/29/25 09:25 DC Insulin Human Regular (humuLIN R 100 UNIT/ML 3ML) INSULIN SLIDING SCAL... ACHS SQ 08/29/25 11:30 09/28/25 11:29 08/30/25 09:52 4 UNIT Insulin Human Regular 100 unit/ Sodium Chloride 101 ml @ 0 mls/hr PROTOCOL IV 08/29/25 12:30 08/29/25 16:05 DC Magnesium Sulfate 50 ml @ 0 mls/hr PROTOCOL IV 08/29/25 12:30 08/29/25 16:05 DC Magnesium Sulfate 50 ml @ 0 mls/hr PROTOCOL IV 08/30/25 10:00 09/29/25 09:59 08/30/25 10:18 25 MLS/HR Meropenem (Merrem 500mg) 500 mg Q24H IVPB 08/29/25 10:00 08/31/25 09:59 08/30/25 09:46 500 MG Norepinephrine Bitartrate 32 mg/ Sodium Chloride 250 ml @ 0 mls/hr Q0M STAT IV 08/29/25 21:01 08/29/25 21:07 DC 08/29/25 21:13 0 MLS/HR Octreotide Acetate 1250 mcg/ Sodium Chloride 250 ml @ 0 mls/hr PROTOCOL IV 08/29/25 08:30 09/28/25 08:29 08/29/25 09:34 5 MLS/HR Ondansetron HCl (zoFRAN 4MG INJ) 4 mg Q6H PRN IVP NAUSEA/VOMITING 08/29/25 09:30 09/28/25 09:29 Pantoprazole Sodium 80 mg/ Sodium Chloride 100 ml @ 10 mls/hr Q10H IV 08/29/25 08:30 09/28/25 08:29 08/30/25 13:30 10 MLS/HR Pharmacy Profile Note (Pharmacy Communication) 1 each ONCE MISC 08/29/25 09:30 08/29/25 09:35 DC Potassium Chloride 100 ml @ 50 mls/hr AD PRN IV POTASSIUM PROTOCOL 08/29/25 12:30 09/28/25 12:29 08/30/25 00:36 50 MLS/HR Sodium Bicarbonate 150 meq/Dextrose 1,150 ml @ 125 mls/hr Q9H12M IVP 08/29/25 10:00 08/30/25 10:12 DC 08/30/25 08:07 125 MLS/HR Sodium Chloride 250 ml @ 0 mls/hr AD IV 08/29/25 17:30 09/28/25 17:29 Sodium Chloride 1,000 ml @ 0 mls/hr Q0M IV 08/29/25 16:00 08/29/25 16:03 DC Sodium Chloride 1,000 ml @ 0 mls/hr Q0M IV 08/29/25 16:00 09/28/25 15:59 08/29/25 16:10 500 MLS/HR Sodium Chloride 1,000 ml @ 125 mls/hr Q8H IV 08/29/25 09:30 08/29/25 09:57 DC Sodium Chloride 1,000 ml @ 150 mls/hr Q6H40M IV 08/29/25 18:30 09/28/25 18:29 08/29/25 18:14 75 MLS/HR Sodium Chloride 1,000 ml @ 200 mls/hr PROTOCOL IV 08/29/25 12:30 08/29/25 16:05 DC Sodium Chloride 1,000 ml @ 999 mls/hr Q1H1M IV 08/29/25 09:30 08/29/25 09:06 DC Thiamine HCl (Vitamin B-1) 200 mg Q12H IVP 08/29/25 09:30 09/02/25 09:30 08/30/25 09:46 200 MG Diagnostics / Radiology: [COPY/PASTE HERE IF NO REPORTS PLEASE DELETE SECTION] Assessment: [Concern for GI bleed anemia Liver cirrhosis Ileostomy status Hypertension Type 2 diabetes ] Plan: [ Case discussed with Dr. Adams. Plan for EGD once patient's status improves and is off pressors Recommend patient continue with Sandostatin drip Recommend patient continue with pantoprazole drip Please call with questions, concerns, and change in clinical status and any signs of any overt GI bleed Thank you for this consult. NIKKI MUNOZ Aug 30, 2025 18:02
--- NOTE | 2025-08-30 20:30 | PN ---
INFECTIOUS DISEASE PROGRESS NOTE Date of Service: Aug 30, 2025 SUBJECTIVE: This is a 55-year-old female patient with medical history of diabetes mellitus, liver cirrhosis and esophageal varices and surgical history of right knee surgery, repair of colovesicular fistula with sigmoid colon resection and anastomosis on 07/09/2025. Patient was brought to the emergency room for chief complaint of coffee-ground emesis. Patient's stated that she has been nauseated and having mild abdominal pain since last week. On Saturday night however patient vomited coffee-ground emesis and that's when she asked her daughter to bring her to the emergency room. On admission patient was found severely dehydrated, on acute renal failure, BUN of 80 with a creatinine of 5.0. Potassium level of 7.0 and the hemoglobin was 16.4. Patient was dialyzed yesterday and today renal function has improved to a BUN of 35 and a creatinine of 1.8. The hemoglobin however dropped to 9.[address] of the abdomen showed esophageal varices and infrasplenic collection where the left percutaneous drainage catheter is placed. Patient was hypotensive requiring vasopressor support. The lactic acid was 3.1 but no fever. Patient has been started on Meropenem. We will continue to monitor patient closely. REVIEW OF SYSTEMS CONSTITUTIONAL: Denies fever, chills, or fatigue. HEAD/FACE: No signs of trauma. EENT: Denies eye pain, blurred vision, double vision, or light sensitivity. RESPIRATORY: Denies shortness of breath, cough, wheezing CARDIOVASCULAR: Denies chest pain, palpitation, syncope GASTROINTESTINAL/ABDOMINAL: Coffee-ground emesis. Abdominal pain. GENITOURINARY: Denies dysuria or hematuria. MUSCULOSKELETAL: Denies joint pain, tenderness, or trauma. INTEGUMENTARY: Denies rash or itchiness NEUROLOGICAL/PSYCH: Denies anxiety, depression, heat or cold intolerance. PHYSICAL EXAM EYES: Anicteric. Pupils equal and reactive. HENT: No oral thrush seen, moist Oral mucosa. NECK: Supple, no JVD or thyromegaly. LUNGS: Good air entry. No rales, no rhonchi. CARDIOVASCULAR: S1, S2 regular. No murmur heard. ABDOMEN: Soft, non tender, bowel sounds present. Right ileostomy. Left Perisplenic abscess percutaneous drainage catheter. CENTRAL NERVOUS SYSTEM: Awake, alert, oriented x 3. SKIN: No rashes, no swelling. LYMPHATICS: No peripheral lymphadenopathy. MUSCULOSKELETAL: No joint swelling, erythema or tenderness. EXTREMITIES: No cyanosis or clubbing. BACK: No deformity, no pressure ulcer. GENITOURINARY: No dysuria or hematuria. Dueñas catheter. Vital Sign (Last 12 Hours) 08/30/25 08/30/25 08/30/25 08/30/25 08:30 08:39 08:45 08:54 Pulse 85 84 81 80 Resp 23 20 18 18 B/P (MAP) 103/51 (68) 101/53 (69) Pulse Ox 95 97 95 96 FiO2 21 21 21 21 08/30/25 08/30/25 08/30/25 08/30/25 09:00 09:09 09:15 09:24 Pulse 84 76 80 81 Resp 22 21 24 18 B/P (MAP) 114/64 (81) 116/60 (78) Pulse Ox 96 96 96 97 FiO2 21 21 21 21 08/30/25 08/30/25 08/30/25 08/30/25 09:30 09:39 09:45 09:54 Pulse 84 80 77 83 Resp 20 21 21 27 B/P (MAP) 110/72 (85) 115/69 (84) Pulse Ox 98 98 98 98 FiO2 21 21 21 21 08/30/25 08/30/25 08/30/25 08/30/25 10:00 10:09 10:15 10:24 Pulse 80 87 79 88 Resp 20 20 18 18 B/P (MAP) 118/66 (83) 115/64 (81) Pulse Ox 97 97 98 97 FiO2 21 21 21 21 08/30/25 08/30/25 08/30/25 08/30/25 10:30 10:39 10:45 10:54 Pulse 88 87 84 81 Resp 21 22 21 19 B/P (MAP) 122/72 (89) 106/61 (76) Pulse Ox 97 98 97 97 FiO2 21 21 21 21 08/30/25 08/30/25 08/30/25 08/30/25 11:00 11:09 11:15 11:24 Pulse 77 77 76 77 Resp 19 17 18 19 B/P (MAP) 110/59 (76) 107/60 (76) Pulse Ox 96 97 97 98 FiO2 21 21 21 21 08/30/25 08/30/25 08/30/2525 11:30 11:39 11:45 11:54 Pulse 79 78 81 78 Resp 17 19 17 18 B/P (MAP) 105/57 (73) 107/61 (76) Pulse Ox 96 97 97 97 FiO2 21 21 21 21 08/30/25 08/30/25 08/30/25 08/30/25 12:00 12:00 12:00 12:09 Temp 99.1 Pulse 90 75 Resp 25 19 B/P (MAP) 110/60 (77) Pulse Ox 96 98 97 O2 Delivery Room Air* O2 Flow Rate 0 FiO2 08/30/25 08/30/25 08/30/25 08/30/25 12:15 12:24 12:30 12:39 Pulse 82 84 80 82 Resp 27 B/P (MAP) 106/60 (75) 113/62 (79) Pulse Ox 98 97 98 98 FiO2 21 21 21 21 08/30/25 08/30/25 08/30/25 08/30/25 12:45 12:54 13:00 13:09 Pulse 80 79 79 79 Resp 17 23 23 18 B/P (MAP) 122/64 (83) 74/35 (48) Pulse Ox 98 97 98 96 FiO2 21 21 21 21 08/30/25 08/30/25 08/30/25 08/30/25 13:15 13:24 13:30 13:39 Pulse 75 77 80 76 Resp 22 20 19 21 B/P (MAP) 133/69 (90) 124/70 (88) Pulse Ox 99 98 98 98 FiO2 21 21 21 21 08/30/25 08/30/25 08/30/25 08/30/25 13:45 13:54 14:00 14:09 Pulse 77 77 79 86 Resp 20 27 16 10 B/P (MAP) 115/68 (84) 140/49 (79) Pulse Ox 99 98 98 98 FiO2 21 21 21 21 08/30/25 08/30/25 08/30/25 08/30/25 14:15 14:24 14:30 14:45 Pulse 74 75 77 76 Resp 20 21 17 19 B/P (MAP) 122/70 (87) Pulse Ox 99 100 99 99 FiO2 21 21 21 21 08/30/25 08/30/25 08/30/25 08/30/25 15:00 15:09 15:15 15:24 Pulse 77 77 78 77 Resp 21 20 24 19 B/P (MAP) 133/72 (92) 148/58 (88) Pulse Ox 97 99 99 99 FiO2 21 21 21 21 08/30/25 08/30/25 08/30/25 08/30/25 15:30 15:39 15:45 15:54 Pulse 78 83 79 76 Resp 23 16 20 31 B/P (MAP) 117/66 (83) 116/71 (86) Pulse Ox 98 97 98 98 FiO2 21 21 21 21 08/30/25 08/30/25 08/30/25 08/30/25 16:00 16:00 16:09 16:15 Temp 98.4 Pulse 78 78 80 Resp 22 B/P (MAP) 125/68 (87) Pulse Ox 98 100 99 FiO2 21 21 21 08/30/25 08/30/25 08/30/25 08/30/25 16:30 16:39 16:45 16:54 Pulse 76 77 81 79 Resp 12 24 16 26 B/P (MAP) 120/66 (84) 130/68 (88) Pulse Ox 99 98 100 97 FiO2 21 21 21 21 08/30/25 08/30/25 08/30/25 08/30/25 17:00 17:09 17:15 17:24 Pulse 82 81 80 81 Resp 42 20 20 19 B/P (MAP) 133/67 (89) 132/69 (90) Pulse Ox 98 97 98 98 FiO2 21 21 21 21 08/30/25 08/30/25 08/30/25 08/30/25 17:30 17:39 17:45 18:30 Pulse 81 81 80 79 Resp 20 18 21 20 B/P (MAP) 134/68 (90) 131/69 (89) Pulse Ox 98 98 97 97 FiO2 21 21 21 08/30/25 08/30/25 08/30/25 08/30/25 18:45 19:00 19:07 19:15 Temp 98.1 Pulse 85 82 81 81 Resp 22 21 18 18 B/P (MAP) 152/75 (100) 134/67 (89) 131/64 (86) Pulse Ox 98 97 97 O2 Delivery N/A Room Air FiO2 21 08/30/25 08/30/25 08/30/25 08/30/25 19:30 19:37 19:41 19:45 Temp 98.1 Pulse 76 75 Resp 20 73 B/P (MAP) 126/64 (84) 116/64 (81) Pulse Ox 97 97 97 O2 Delivery Room Air* O2 Flow Rate 0 FiO2 21 08/30/25 20:00 Pulse 85 Resp 20 B/P (MAP) 141/72 (95) Pulse Ox 96 FiO2 21 Intake & Output (last 24hrs) 08/29/25 08/29/25 08/30/25 15:00 23:00 07:00 Intake Total 1970.0 ml 1579.5 ml 1788.2 ml Output Total 350 ml 430 ml Balance 1970.0 ml 1229.5 ml 1358.2 ml LABS: Laboratory: Test 08/30/25 19:49 08/30/25 03:46 08/29/25 20:40 08/29/25 12:54 Range/Units Whole Blood Glucose 142 H 70-110 MG/DL White Blood Count 10.5 4.8-10.8 K/uL Red Blood Count 3.25 L 4.00-5.50 MIL/uL Hemoglobin 9.9 L 12.0-16.0 g/dL Hematocrit 28.0 L 36-48 % Mean Corpuscular Volume 86.2 79-99 fL Mean Corpuscular Hemoglobin 30.5 27.0-33.0 pg Mean Corpuscular Hemoglobin Concent 35.4 32.0-36.0 g/dL Red Cell Distribution Width 16.8 H 11.0-15.5 % Platelet Count 236 130-400 K/uL Mean Platelet Volume 9.2 7.5-10.5 fL Immature Granulocyte % (Auto) 0.9 0-1 % Neutrophils (%) (Auto) 72.2 40.0-77.0 % Lymphocytes (%) (Auto) 15.6 L 21.0-51.0 % Monocytes (%) (Auto) 10.6 3.0-13.0 % Eosinophils (%) (Auto) 0.3 0.0-8.0 % Basophils (%) (Auto) 0.4 0.0-5.0 % Neutrophils # (Auto) 7.6 1.8-7.7 K/uL Lymphocytes # (Auto) 1.6 1.0-4.8 K/uL Monocytes # (Auto) 1.1 H 0.1-1.0 K/uL Eosinophils # (Auto) 0.03 0.00-0.70 K/uL Basophils # (Auto) 0.04 0.00-0.20 K/uL Absolute Immature Granulocyte (auto 0.09 0-1 K/uL Nucleated Red Blood Cells 0.0 0.0-0.19 % Sodium Level 134 L 136-145 mmol/L Potassium Level 3.5 3.5-5.1 mmol/L Chloride Level 96 L 101-111 mmol/L Carbon Dioxide Level 31 21-32 mmol/L Blood Urea Nitrogen 35 H 7-18 mg/dL Creatinine 1.8 H 0.5-1.0 mg/dL Glomerular Filtration Rate Calc 32 >90 mL/min Random Glucose 253 H 70-105 mg/dL Total Calcium 7.3 L 8.5-10.1 mg/dL Magnesium Level 1.50 L 1.80-2.40 mg/dL Total Bilirubin 0.7 0.2-1.0 mg/dL Aspartate Amino Transf (AST/SGOT) 38 H 10-37 U/L Alanine Aminotransferase (ALT/SGPT) 22 12-78 U/L Alkaline Phosphatase 158 H 50-136 U/L Lactate Dehydrogenase 133 81-234 U/L Total Protein 6.1 6.0-8.3 g/dL Albumin 2.1 L 3.5-5.0 g/dL Lactic Acid Level 2.1 0.8-2.5 mmol/L Urine Color DARK-YELLOW YELLOW Urine Appearance CLEAR CLEAR Urine pH 5.0 5.0-8.0 Urine Specific [place] 1.020 1.001-1.031 Urine Protein 20 H NEGATIVE mg/dL Urine Glucose (UA) NEGATIVE NEGATIVE mg/dL Urine Ketones NEGATIVE NEGATIVE mg/dL Urine Occult Blood NEGATIVE NEGATIVE Urine Nitrate NEGATIVE NEGATIVE Urine Bilirubin NEGATIVE NEGATIVE mg/dL Urine Urobilinogen 0.2 0.2-1.0 mg/dL Urine Leukocyte Esterase NEGATIVE NEGATIVE Regino/uL Urine RBC 2-5 H 0-1 /HPF Urine WBC 2-5 H 0-1 /HPF Urine Squamous Epithelial Cells RARE 0-2 /HPF Urine Bacteria RARE None Seen /HPF Urine Hyaline Casts 6-10 H 0-1 /LPF /LPF Urine Granular Casts (Auto) 11-25 H None Seen /LPF Urine Random Creatinine 242.85 H 30-135 mg/dL Urine Random Sodium < 13 L 40-220 mmol/l Test 08/29/25 12:32 08/29/25 11:39 08/29/25 09:13 08/29/25 09:12 Range/Units Bedside Glucose Comment Notified Nurse Hemoglobin A1c 5.5 4.0-6.0 % Estimated Average Glucose (eAG) 111 70-126 mg/dL Whole Blood Ketones Quantitative 2.2 H 0.0-0.6 mmol/L Blood Gas Specimen Type Arterial Arterial Blood pH 7.285 L 7.350-7.450 Arterial Blood Partial Pressure CO2 18 *L 32-45 mmHg Arterial Blood Partial Pressure O2 109.8 H 83.0-108.0 mmHg Arterial Blood HCO3 8.4 L 21.0-28.0 mmol/L Arterial Blood Oxygen Saturation 97.9 94.0-98.0 % Arterial Blood Base Excess -15.5 L -2.0-3.0 mmol/L Hemoglobin (Blood Gas) 15.5 12.0-16.0 g/dL Sodium (Blood Gas) 123 L 136-145 MMOL/L Bedside Potassium (Blood Gas) 6.7 *H 3.4-4.5 MMOL/L Bedside Chloride (Blood Gas) 96 L 98-107 MMOL/L Bedside Glucose (Blood Gas) 99 H 65-95 MG/DL Bedside Ionized Calcium (Blood Gas) 1.35 H 1.15-1.33 MMOL/L Bedside Lactic Acid (Blood Gas) 2.98 H 0.36-0.75 MMOL/L Blood Gas Temperature 37.0 35.5-37.0 CELSIUS Blood Gas Vent Mode RA ROOM AIR FiO2 21.0 % Blood Gas Specimen Comment DR.REYNA TAL Phosphorus Level 7.0 H 2.5-4.9 mg/dL Direct Bilirubin 0.3 0.0-0.3 mg/dL C-Reactive Protein, Quantitative 6.00 H 0.5-3.0 mg/L Procalcitonin 0.33 0.05-0.5 ng/mL Test 08/29/25 08:02 Range/Units Erythrocyte Sedimentation Rate > 130 H 0-30 MM/HR Prothrombin Time 13.2 H 9.6-11.6 SEC Prothromb Time International Ratio 1.28 H 0.85-1.15 Activated Partial Thromboplast Time 32.5 26.3-35.5 SEC Ammonia 65 H 11-32 umol/L Total Creatine Kinase 26 21-232 U/L Troponin I High Sensitivity 13 4-50 ng/L DIAGNOSTICS / RADIOLOGY: PATIENT: DALLAS BUCHANAN MR#: [id number] : 1970 SEX: F AGE: 55 LOCATION: 2CV ORDER 9 STATUS: ADM IN REPORT#: [id number] SERVICE 7 REASON: coffee ground emesis, hx of abdominal drain, nausea, vomiting, hx of cirrho ORDERING PHYSICIAN: BRADEN CONTRERAS MD PROCEDURE: ABD PEL WO - CT ABDOMEN/PELVIS W/O CONTRAST EXAM: CT Abdomen and Pelvis Without IV contrast CLINICAL HISTORY: coffee ground emesis, hx of abdominal drain, nausea, vomiting, hx of cirrho TECHNIQUE: Axial computed tomography images of the abdomen and pelvis without intravenous contrast. CONTRAST: No IV contrast. COMPARISON: Study dated 08/23/25. FINDINGS: LUNG BASES: Tiny calcified nodules in the posterior basal segment of the right lower lobe. There is mild dependent airspace disease within the bilateral lower lobes that is presumed to reflect atelectasis. No pleural effusions are seen. LIVER: There is cirrhotic hepatic morphology. Several small esophageal varices are noted. GALLBLADDER AND BILE DUCTS: The gallbladder is decompressed with a cholecystostomy tube in place. No biliary ductal dilatation is evident. PANCREAS: Unremarkable. SPLEEN: 2.7 x 2.2 x 5.1 cm infrasplenic collection with adjacent fat stranding and pigtail tube in place. ADRENAL GLANDS: Unremarkable. KIDNEYS, URETERS, AND BLADDER: The kidneys appear within normal limits. There is no hydronephrosis or hydroureter. No urinary calculi are seen. Dueñas's bulb in the urinary bladder with few air foci. STOMACH AND BOWEL: 2.4 cm ileostomy defect in the right iliac fossa and postoperative changes in the bowel loops. No evidence of bowel obstruction. No evidence suggesting enteritis or colitis. APPENDIX: No evidence of acute appendicitis on CT examination. PERITONEUM: No free fluid. No free air. LYMPH NODES: No lymphadenopathy is evident. REPRODUCTIVE: Unremarkable as visualized. VASCULATURE: No evidence of abdominal aortic aneurysm. BONES: No aggressive appearing osseous lesion. No acute osseous pathology evident. Mild degenerative changes in the spine. IMPRESSION: 1. Cirrhotic hepatic morphology. Several small esophageal varices are noted. 2. 2.7 x 2.2 x 5.1 cm infrasplenic collection with adjacent fat stranding and pigtail tube in place. 3. Cholecystostomy tube in decompressed gallbladder. 4. Ileostomy in right iliac fossa with postoperative changes. /[place] DICTATED BY: ELDON MILLER Jr., MD DATE: 08/29/25 1620 ASSESSMENT: Acute hypoxic respiratory failure requiring oxygen support. Possible Sepsis. Gastrointestinal bleeding. Acute renal failure requiring dialysis. Severe Dehydration. Hyperkalemia. Hyponatremia. Diabetes mellitus. Perisplenic abscess with a recent CT-guided drainage placement on 08/09/2025. Cholecystostomy tube placement on 08/02/2025 due to acute cholecystitis. Recent laparoscopy, abdominal washout, ileostomy creation on 07/21/2025. PLAN: Continue Meropenem. Currently on Sandostatin and Protonix drip. Continue vasopressor support. Continue critical care support. Patient was dialyzed yesterday. Avoid nephrotoxic medications. Continue antidiabetics. Monitor for bleeding. Continue IV fluids. Thank you for allowing [facility] to participate in the care of this patient. This case was reviewed and discussed with my supervising physician Dr. Roger and the above assessment and plan was formulated and agreed upon. ATTESTATION BY PHYSICIAN I have seen and examined the patient. I reviewed the documentation, medical decision making, and treatment plan as noted by the mid-level provider above. I agree with the findings and plan of care. AMIE ROGER MD, [facility] Aug 30, 2025 20:30
--- NOTE | 2025-08-30 20:34 | PN ---
[facility] PROGRESS NOTE Date Patient Seen: Aug 30, 2025 Time of Visit: 20:15 Supervising Physician: Richy Chin MD Primary Care Physician: Jes Olivera Outpatient Specialists: [ ] Inpatient Consults: [facility] PROBLEM LIST: Severe sepsis with a multi organ dysfunction POA (SOFA Score 4 Points </33% mortality), improving Multifactorial Acute metabolic acidosis, resolving CYNTHIA FENa score 0.2% Prerenal POA S/P HD on08/29/25 Life-threatening hyperkalemia POA, resolved Multifactorial Acute metabolic encephalopathy, POA GI bleed in the presence of esophageal varices Acute decompensated liver cirrhosis Hyperammonemia Hyponatremia Moderate protein malnutrition Severe dehydration Starvation ketosis Hyperglycemia in the presence of type 2 diabetes mellitus, POA 2.7 x 2.2 x 5.1 cm infrasplenic collection hx of acute cholecystitis, s/p cholecystostomy tube to right upper quadrant placement on 08/02/2025. Perisplenic abscess, s/p CT-guided drainage placement on 08/09/2025. History of bilious peritonitis with small colonic anastomosis perforation s/p diagnostic laparoscopy, abdominal washout, ileostomy creation by Dr. Gann, 07/21/2025 Gastritis Hx of Generalized peritonitis with ESBL E coli infection, POA Recent colovesical fistula repair with sigmoid colon resection and anastomosis on INTERVAL HISTORY: Pt is awake alert and oriented x .Pt received HD last night with no output. She is hemodynamically stable with low dose levophed of 0.02 mcg/kg/min. Labs are improving. HH 9.9/28.0. Na 134, Chloride 96, cr 1.8, GFC 32 improving. K + 3.5. She is currently at [facility]. Family at the bedside. Answered all their questions. Per surgery no surgical recommendations at this time. Pending GI for evaluation for EGD. REVIEW OF SYSTEMS: General:+ generalized weakness Neurological: No fainting episodes or seizures. HEENT: No nasal congestion or nasal secretion. Respiratory: No cough, shortness of breath, or wheezing Cardiac: No chest pain or palpitations. Gastrointestinal: No vomiting or diarrhea. Poor appetite Genitourinary: No dysuria hematuria. Skin: No rashes or lesions. Hematological: No bruises or bleeding. Musculoskeletal: No joint pains or arthralgias. Psychiatric: No depression or panic attacks. PHYSICAL EXAM: GENERAL: Chronically ill, weak, debilitated, malnourished HEENT: EOMI, Sclera non icteric, dry mucosa NECK: Supple, no JVD, trachea midline LUNGS: Clear breath sounds bilaterally. No wheezes HEART: Regular rate and rhythm. Normal S1 and S2, without murmurs ABD: Abdomen soft, nontender. Bowel sounds present, right upper quadrant cholecystostomy tube, left upper quadrant accordion drain, ileostomy to right lower quadrant. EXT: No clubbing cyanosis or edema NEURO: GCS of 15 No focal weakness. Vital Signs (last 8hr) Date Time Temp Pulse Resp B/P (MAP) Pulse Ox O2 Delivery O2 Flow Rate FiO2 08/30/25 20:00 85 20 141/72 (95) 96 21 08/30/25 19:45 75 73 116/64 (81) 97 08/30/25 19:41 98.1 08/30/25 19:37 97 Room Air* 0 21 08/30/25 19:30 76 20 126/64 (84) 97 08/30/25 19:15 98.1 81 18 131/64 (86) 97 08/30/25 19:07 81 18 N/A Room Air 21 08/30/25 19:00 82 21 134/67 (89) 97 21 08/30/25 18:45 85 22 152/75 (100) 98 08/30/25 18:30 79 20 131/69 (89) 97 08/30/25 17:45 80 21 97 21 08/30/25 17:39 81 18 134/68 (90) 98 21 08/30/25 17:30 81 20 98 21 08/30/25 17:24 81 19 132/69 (90) 98 21 08/30/25 17:15 80 20 98 21 08/30/25 17:09 81 20 133/67 (89) 97 21 08/30/25 17:00 82 42 98 21 08/30/25 16:54 79 26 130/68 (88) 97 21 08/30/25 16:45 81 16 100 21 08/30/25 16:39 77 24 120/66 (84) 98 21 08/30/25 16:30 76 12 99 21 08/30/25 16:15 80 22 99 21 08/30/25 16:09 78 27 125/68 (87) 100 21 08/30/25 16:00 98.4 08/30/25 16:00 78 25 98 21 08/30/25 15:54 76 31 116/71 (86) 98 21 08/30/25 15:45 79 20 98 21 08/30/25 15:39 83 16 117/66 (83) 97 21 08/30/25 15:30 78 23 98 21 08/30/25 15:24 77 19 148/58 (88) 99 21 08/30/25 15:15 78 24 99 21 08/30/25 15:09 77 20 133/72 (92) 99 21 08/30/25 15:00 77 21 97 21 08/30/25 14:45 76 19 99 21 08/30/25 14:30 77 17 99 21 08/30/25 14:24 75 21 122/70 (87) 100 21 08/30/25 14:15 74 20 99 21 08/30/25 14:09 86 10 140/49 (79) 98 21 08/30/25 14:00 79 16 98 21 08/30/25 13:54 77 27 115/68 (84) 98 21 08/30/25 13:45 77 20 99 21 08/30/25 13:39 76 21 124/70 (88) 98 21 08/30/25 13:30 80 19 98 21 08/30/25 13:24 77 20 133/69 (90) 98 21 08/30/25 13:15 75 22 99 21 08/30/25 13:09 79 18 74/35 (48) 96 21 08/30/25 13:00 79 23 98 21 08/30/25 12:54 79 23 122/64 (83) 97 21 08/30/25 12:45 80 17 98 21 08/30/25 12:39 82 27 113/62 (79) 98 21 08/30/25 12:30 80 21 98 21 08/30/25 12:24 84 21 106/60 (75) 97 21 LABS: Hematology Labs: Test 08/30/25 03:46 08/29/25 08:02 Range/Units White Blood Count 10.5 4.8-10.8 K/uL Red Blood Count 3.25 L 4.00-5.50 MIL/uL Hemoglobin 9.9 L 12.0-16.0 g/dL Hematocrit 28.0 L 36-48 % Mean Corpuscular Volume 86.2 79-99 fL Mean Corpuscular Hemoglobin 30.5 27.0-33.0 pg Mean Corpuscular Hemoglobin Concent 35.4 32.0-36.0 g/dL Red Cell Distribution Width 16.8 H 11.0-15.5 % Platelet Count 236 130-400 K/uL Mean Platelet Volume 9.2 7.5-10.5 fL Immature Granulocyte % (Auto) 0.9 0-1 % Neutrophils (%) (Auto) 72.2 40.0-77.0 % Lymphocytes (%) (Auto) 15.6 L 21.0-51.0 % Monocytes (%) (Auto) 10.6 3.0-13.0 % Eosinophils (%) (Auto) 0.3 0.0-8.0 % Basophils (%) (Auto) 0.4 0.0-5.0 % Neutrophils # (Auto) 7.6 1.8-7.7 K/uL Lymphocytes # (Auto) 1.6 1.0-4.8 K/uL Monocytes # (Auto) 1.1 H 0.1-1.0 K/uL Eosinophils # (Auto) 0.03 0.00-0.70 K/uL Basophils # (Auto) 0.04 0.00-0.20 K/uL Absolute Immature Granulocyte (auto 0.09 0-1 K/uL Nucleated Red Blood Cells 0.0 0.0-0.19 % Erythrocyte Sedimentation Rate > 130 H 0-30 MM/HR Chemistry Labs: Test 08/30/25 19:49 08/30/25 03:46 08/29/25 20:40 08/29/25 12:32 Range/Units Whole Blood Glucose 142 H 70-110 MG/DL Sodium Level 134 L 136-145 mmol/L Potassium Level 3.5 3.5-5.1 mmol/L Chloride Level 96 L 101-111 mmol/L Carbon Dioxide Level 31 21-32 mmol/L Blood Urea Nitrogen 35 H 7-18 mg/dL Creatinine 1.8 H 0.5-1.0 mg/dL Glomerular Filtration Rate Calc 32 >90 mL/min Random Glucose 253 H 70-105 mg/dL Total Calcium 7.3 L 8.5-10.1 mg/dL Magnesium Level 1.50 L 1.80-2.40 mg/dL Total Bilirubin 0.7 0.2-1.0 mg/dL Aspartate Amino Transf (AST/SGOT) 38 H 10-37 U/L Alanine Aminotransferase (ALT/SGPT) 22 12-78 U/L Alkaline Phosphatase 158 H 50-136 U/L Lactate Dehydrogenase 133 81-234 U/L Total Protein 6.1 6.0-8.3 g/dL Albumin 2.1 L 3.5-5.0 g/dL Lactic Acid Level 2.1 0.8-2.5 mmol/L Bedside Glucose Comment Notified Nurse Test 08/29/25 11:39 08/29/25 09:12 08/29/25 08:02 Range/Units Hemoglobin A1c 5.5 4.0-6.0 % Estimated Average Glucose (eAG) 111 70-126 mg/dL Whole Blood Ketones Quantitative 2.2 H 0.0-0.6 mmol/L Phosphorus Level 7.0 H 2.5-4.9 mg/dL Direct Bilirubin 0.3 0.0-0.3 mg/dL C-Reactive Protein, Quantitative 6.00 H 0.5-3.0 mg/L Procalcitonin 0.33 0.05-0.5 ng/mL Ammonia 65 H 11-32 umol/L Total Creatine Kinase 26 21-232 U/L Troponin I High Sensitivity 13 4-50 ng/L Coagulation Labs: Test 08/29/25 08:02 Range/Units Prothrombin Time 13.2 H 9.6-11.6 SEC Prothromb Time International Ratio 1.28 H 0.85-1.15 Activated Partial Thromboplast Time 32.5 26.3-35.5 SEC DIAGNOSTICS / RADIOLOGY RESULTS: [ ] [place] [address] IMAGING REPORT Signed PATIENT: DALLAS BUCHANAN MR#: [id number] : 1970 SEX: F AGE: 55 LOCATION: 2CV ORDER 8 STATUS: ADM IN REPORT#: [id number] SERVICE 99 REASON: severe renal failure ORDERING PHYSICIAN: BRADEN CONTRERAS MD PROCEDURE: RENAL - US RENAL SONOGRAM EXAM: RENAL AND URINARY BLADDER ULTRASOUND Technique: Grayscale and color Doppler sonography of both kidneys and the urinary bladder was performed. Study quality is adequate. Evaluation of the bladder and ureteral jets is limited by decompression from an indwelling catheter. Clinical Information: Severe renal failure. Findings: Right kidney: Measures 10.3 ??? 5.3 ??? 4.2 centimeters. Renal cortical thickness and echogenicity are within expected limits for technique. No focal mass is identified. No hydronephrosis. No renal calculi. No perinephric fluid collection. Left kidney: Measures 11.0 ??? 4.8 ??? 3.2 centimeters. The renal parenchyma is diffusely increased in echogenicity relative to the adjacent liver and spleen. No focal mass is identified. No hydronephrosis. No renal calculi. No perinephric fluid collection. Urinary bladder: Decompressed with a Dueñas catheter in situ. Bladder wall measures approximately 3 millimeters, which may appear relatively thick due to underdistention. No intraluminal mass or debris is identified on the limited evaluation. Impression: * Left kidney demonstrates increased parenchymal echogenicity, a nonspecific finding commonly associated with medical renal disease in the setting of renal failure. * No hydronephrosis or renal calculi identified bilaterally. * Decompressed urinary bladder with Dueñas catheter in place; apparent wall thickening likely related to underdistention. /[place] DICTATED BY: EDWIGE LEDESMA MD DATE: 08/29/252248 ELECTRONICALLY SIGNED BY: EDWIGE LEDESMA MD DATE: 08/29/252248 PLAN Continue ICU management Continue to wean Levophed currently at 0.02 mcg/kg per minute Discontinue bicarb drip A1c 5.5 Follow Nephrology recommendations Follow General surgery recommendations for now no indication per surgery. Monitor electrolytes and cover accordingly. The patient NPO until more alert Aspiration precautions Follow GI recommendations - Monitor ammonia levels NEURO: Minimize central acting medications as possible. Fall Precautions. Well lighted room through the day and minimize interruptions through the night to prevent acute delirium. PULMONARY: Supplemental 02 as needed Titrate Fio2 to keep Spo2 > or = 90% DuoNebs and CPT as needed IS hourly while awake for pulmonary hygiene Out of bed to chair as tolerated CARDIOVASCULAR: Follow hemodynamics. Titrate vasopressor to keep MAP >65 or systolic blood pressure >95mmHg Drips: Sodium bicarb drip LINES: PIV Transferred to right IJ Right upper quadrant cholecystostomy tube Left upper quadrant accordion drain Ileostomy to right lower quadrant GI & NUTRITION: Continue nutritional support Aspirations precautions Prokinetic agents and laxatives as needed KIDNEYS & ELECTROLYTES: Strict monitoring of intake and output Daily weights Avoid nephrotoxic agents Monitor electrolytes and replace as needed Goal urine output of 30mL/hr or 0.5mL/kg/hr Follow Nephrology recommendations Place Trialysis catheter per Nephrology recommendation next Case Dueñas catheter ENDOCRINE: Maintain blood glucose between 100-180 at all times. Insulin sliding scale for blood glucose management INFECTIOUS DISEASE: Trend temperature. Hull-culture if febrile. Micro: [ ] Blood culture Urine culture Antibiotics: [ Meropenem] HEMATOLOGY & COAGULATION: Monitor H&H. Keep Hgb > 7 Transfuse 1 unit of PRBC for Hgb < 7 Transfuse 1 pack of platelets of platelets < 20, 000 Watch for any signs and symptoms of bleeding SKIN: Pressure ulcer prevention per facility protocol Rehab: PT/OT Prophylaxis: GI: [Protonix drip Sandostatin ] DVT: [ No chemical SCDs due to GI bleed, SCDs for now Code Status: Full Resuscitation Disposition: ICU ] Other: Critical care time This patient required multiple bedside visits to manage the patient, review blood gases, coordinate with respiratory, nurses, talk to Nephrology and Primary team, review radiology exams, talk to the family members and discuss advanced directives. I personally spent 120 minutes of critical care time in treatment of this patient. This includes patient management, time at bedside, time reviewing tests, labs, appropriate images and studies, documentation, and patient care coordination. This time excludes separately billable procedures. ATTESTATION BY PHYSICIAN I have evaluated the patient chart, medical records, and spoke with appropriate staff. I reviewed the documentation, medical decision making, and treatment plan as noted by the mid-level provider above. I agree with the findings and plan of care. Richy Chin MD, [facility] Aug 30, 2025 20:34
--- NOTE | 2025-08-30 22:25 | PN ---
SUBJECTIVE: A 55-year-old female with multiple medical conditions. The patient had previous hospitalization status post ileostomy placement. She presented to the hospital with acute renal failure. The patient was found to have significant electrolyte abnormality including severe hyperkalemia as well as severe metabolic acidosis. The patient did receive 1 session of dialysis and patient's acidosis and electrolytes have greatly improved. The patient was started on IV hydration and urine output is somewhat improving and the patient is being seen as a followup visit for all of the above. REVIEW OF SYSTEMS: GENERAL: She is feeling improved. HEENT: No change in vision. No change in hearing. CARDIOVASCULAR: There is no current chest pains or palpitations. PULMONARY: She denies any shortness of breath. GASTROINTESTINAL: Her GI symptoms have improved. MUSCULOSKELETAL: Complaints of weakness. PHYSICAL EXAMINATION: VITAL SIGNS: Blood pressure 101/51, pulse afebrile. GENERAL: Chronically ill female, older than appearing. HEENT: Head is atraumatic. Pupils are equal, round, and reactive to light. Oropharynx is without exudate. Nares are clear. NECK: There is no JVP. There is no thyromegaly, no mass. CARDIOVASCULAR: Regular. There is no S3 or S4 gallop. LUNGS: Coarse with equal thoracic movement. ABDOMEN: Soft, nondistended, nontender. EXTREMITIES: No clubbing or cyanosis. NEUROLOGICAL: She is awake. She is alert. LABORATORY DATA: Sodium 134, potassium 3.5, BUN 35, creatinine 1.8. Hemoglobin 9.9 and hematocrit 28. IMPRESSION: * Acute renal failure. * Electrolytes improved. * Metabolic acidosis also improved. * . * History of volume depletion. PLAN: The patient's creatinine has greatly improved. Hyperkalemia did resolve with the dialysis. The patient's acidosis also improved. We will discontinue the bicarb drip. The patient will continue with normal saline at 150 mL an hour. The patient's urine sodium of less than 20 consistent with prerenal azotemia from the volume depletion. We will continue to monitor closely. The patient being seen by Surgical Service. All labs be repeated in the morning. There is no further need for dialysis at this time. TID: [id number] RECEIPT: [id number]
[2025-08-31] VITALS (89 sets, daily range): BP systolic 79–166; BP diastolic 43–93; PULSE 54–88; RESP 12–31; TEMP 98.1–99.5; O2SAT 97–99
[2025-08-31 04:29] LABS: IMMATURE GRANULOCYTE ABSOLUTE 0.04 K/uL (0-1); NUCLEATED RED BLOOD CELLS 0.0 % (0.0-0.19); PLATELET COUNT (AUTO) 130 K/uL (130-400); RED BLOOD CELL COUNT(AUTO) 2.99 MIL/uL (4.00-5.50); RED CELL DISTRIBUTION WIDTH 17.1 % (11.0-15.5); WHITE BLOOD COUNT (AUTO) 5.1 K/uL (4.8-10.8)
[2025-08-31 04:31] LABS: ASPARTATE AMINOTRANSFERASE 46.0 U/L (10-37); CREATININE 1.0 mg/dL (0.5-1.0); GLOMERULAR FILTR. RATE CALC 66.0 mL/min (>90); GLUCOSE,RANDOM 140.0 mg/dL (70-105); SODIUM SERUM 141.0 mmol/L (136-145); TOTAL PROTEIN, SERUM 5.7 g/dL (6.0-8.3); UREA NITROGEN, BLOOD 16.0 mg/dL (7-18)
[2025-08-31 04:57] LABS: HEPATITIS B CORE AB TOTAL Non-Reactive (Nonreactive); HEPATITIS B SURFACE ANTIBODY Negative (Reactive)
[2025-08-31 07:19] LABS: PHOSPHORUS 1.8 mg/dL (2.5-4.9)
[2025-08-31] MEDS ORDERED: COMPOUND IV MISC 1 EACH IVSOLN MISC PRN (09:00)
--- NOTE | 2025-08-31 14:48 | PN ---
[facility] PROGRESS NOTE Date of Service: Aug 31, 2025 Time of Service: 08:20 SUBJECTIVE: As per admission notes "50-year-old female with underlying history of type 2 diabetes mellitus, history of liver cirrhosis, prior history of esophageal varices requiring banding in May,, history of robotic sigmoid resection with takedown of colovesical fistula who was recently hospitalized in [facility] from 07/20/2025 - 08/25/2025 patient was found to have bilious peritonitis with 2 mm perforation of colonic anastomosis requiring diagnostic laparoscopy, abdominal washout and drain placement with creation of diverting loop ileostomy. Patient was hospitalized for about one month and subsequently required IR guided drain placement as well. She was just discharged from the hospital on 08/25/2025. Patient's daughter reports that patient was having nausea and vomiting with poor oral intake at home. She started to have coffee-ground emesis today and she also noticed some right streaks of blood with a coffee-ground emesis. Stool has also been dark in the ileostomy bag. Patient is having moderate intensity abdominal pain as well. She has not been taking any NSAIDs. Daughter reports that patient has been very weak since her discharge in very debilitated. Patient denies active chest pain. Denies active shortness of breath. On presentation to the hospital, patient was noted to be afebrile with T-max of 97.5 F, heart rate of 100, blood pressure of 127/91. [place] [address], hemoglobin of 16.4, platelet count of 142114. BMP was repeated twice, BMP showed sodium of 117, potassium 7.0, chloride of 88, CO2 of seven, BUN of 83, creatinine 5.0, blood glucose of 99, calcium 10.4. Blood gas showed pH of 7.28, bicarb of close to eight, CO2 of 18, lactic acid of three. Patient will be admitted to ICU. Patient is presenting with severe renal failure with hyperkalemia and severe metabolic acidosis. Patient also with concerns for upper GI bleeding with coffee-ground emesis. Patient remains critically ill consultation with Intensive Care, Nephrology, GI will be requested. We we will obtain a CT abdomen pelvis without contrast for further evaluation as well. Patient is critically ill. Plan of care was discussed with patient and daughter at bedside" 08/30/2025 Patient was seen and examined at bedside. Her blood pressure has been low, 88/54, heart rate 86. She is currently on Levophed 0.2 Mcg, octreotide, Protonix, sodium bicarbonate drip. She received 2nd hemodialysis session yesterday. As per Nephrology, she will continue to receive dialysis inpatient. Her high anion gap metabolic acidosis is improving with sodium 134, carbon dioxide 31, chloride 96. Her creatinine has trended down from 5-1.8. General surgery consult is on board and we will follow up with their recommendations. Additionally, in the light of history of liver cirrhosis with esophageal varices, her recent hematemesis will be evaluated with GI consult and possible endoscopy. We discussed this with the patient and her family members present besides. Patient is started on Merrem and blood culture, urine cultures show no growth so far. Her lactic acid has trended down from 3.1 to 2.1. 08/31/2025 Patient was seen and examined at bedside in room 214. She continues to be on Levophed 0.1 which is being weaned off. She is also on Sandostatin and Protonix drip. Patient complained of mild pain along the sides of her drain but denied any nausea or episode of vomiting since Saturday. Minimal drainage was noted. Sodium bicarb was discontinued as per Nephrology. Her lab markers have improved with sodium 141, chloride 104, bicarb 32, creatinine 1, BUN 16, ammonia 34. Her urine sodium was less than 20 consistent with prerenal CYNTHIA. We are pending blood and urine culture results. Her total output in the past24 hours has been optimal, 2069. She is on sodium chloride 150 mL/hour. We are following gastroenterology recommendations of possible upper endoscopy in the morning if patient condition remains stable. REVIEW OF SYSTEMS CONSTITUTIONAL: malaise, poor oral intake NEUROLOGICAL: Denies headache, amaurosis fugax, motor weakness, sensory deficit, vertigo/spinning sensation, gait abnormalities, or tremors. ENT: No hearing loss, otalgia, otorrhea, rhinitis, rhinorrhea, hoarseness, or sore throat. CARDIOVASCULAR: Denies any exertional angina, dyspnea on exertion, orthopnea, paroxysmal nocturnal dyspnea, palpitations, life-threatening arrhythmias, claudication. PULMONARY: Denies any shortness of breath, cough, phlegm/sputum, hemoptysis, pleuritic chest pain. SLEEP: Denies morning headaches, daytime somnolence or napping. Denies difficulty falling asleep, staying asleep, waking from sleep. Denies knowledge of snoring. GASTROINTESTINAL: nausea, vomiting, abdominal pain, melena, coffee ground emesis GENITOURINARY: Urine output has been very low ENDOCRINOLOGIC: Denies polyuria, polydipsia, polyphagia or heat/cold intolerances. PHYSICAL EXAM GENERAL APPEARANCE: The patient is awake, alert, appears chronically ill and very debilitated NEUROLOGICAL: Cranial nerves II-XII grossly intact. Neurological examination is non focal with spontaneous movement of upper and lower extremities HEENT: Face is symmetric. Pupils are equal and reactive. Extraocular movements are intact. NECK: Supple. No JVD. No thyromegaly. No submental, submandibular, pre- /postauricular, occipital or supraclavicular lymphadenopathy. CHEST: Normal chest expansion. No Telemetry. LUNGS: Absence of any rales, rhonchi or any wheezing. CARDIOVASCULAR: Regular. S1 and S2 normal. No appreciable rubs, murmurs or gallops. ABDOMEN: tenderness to palpation of the epigastric region, no rebound noted, there is abdominal drains noted : Deferred. EXTREMITIES: Non-edematous and not cyanotic. No clubbing. Vital Signs (last 8hr) Date Time Temp Pulse Resp B/P (MAP) Pulse Ox O2 Delivery O2 Flow Rate FiO2 08/31/25 13:15 74 14 127/58 (81) 95 08/31/25 13:00 70 16 97/53 (68) 98 08/31/25 12:45 79 22 107/59 (75) 98 08/31/25 12:30 71 18 108/56 (73) 98 08/31/25 12:15 69 21 108/56 (73) 97 08/31/25 12:00 73 15 100/53 (69) 97 08/31/25 12:00 97 Room Air* 0 21 08/31/25 12:00 98.4 08/31/25 11:45 73 12 90/51 (64) 98 08/31/25 11:30 75 21 103/54 (70) 96 08/31/25 11:15 72 20 102/59 (73) 95 08/31/25 11:00 71 22 110/59 (76) 96 08/31/25 10:45 77 19 101/54 (70) 95 08/31/25 10:30 74 20 95/53 (67) 96 08/31/25 10:15 78 14 103/57 (72) 96 08/31/25 10:00 56 14 91/50 (64) 99 08/31/25 09:45 78 20 91/49 (63) 97 08/31/25 09:30 81 14 80/48 (59) 95 08/31/25 09:15 78 18 93/51 (65) 96 08/31/25 09:00 79 21 92/51 (65) 97 08/31/25 08:45 82 21 92/50 (64) 97 08/31/25 08:30 74 23 115/63 (80) 96 08/31/25 08:15 71 19 126/69 (88) 96 08/31/25 08:00 97 Room Air* 0 21 08/31/25 08:00 98.1 08/31/25 08:00 80 20 130/68 (88) 100 08/31/25 07:45 74 13 101/59 (73) 96 08/31/25 07:30 77 15 117/74 (88) 97 08/31/25 07:15 74 21 122/62 (82) 95 LABS: Laboratory: Test 08/31/25 10:28 08/31/25 03:52 08/30/25 03:46 08/29/25 20:40 Range/Units Whole Blood Glucose 124 H 70-110 MG/DL White Blood Count 5.1 4.8-10.8 K/uL Red Blood Count 2.99 L 4.00-5.50 MIL/uL Hemoglobin 9.0 L 12.0-16.0 g/dL Hematocrit 26.7 L 36-48 % Mean Corpuscular Volume 89.3 79-99 fL Mean Corpuscular Hemoglobin 30.1 27.0-33.0 pg Mean Corpuscular Hemoglobin Concent 33.7 32.0-36.0 g/dL Red Cell Distribution Width 17.1 H 11.0-15.5 % Platelet Count 130 # 130-400 K/uL Mean Platelet Volume 9.4 7.5-10.5 fL Immature Granulocyte % (Auto) 0.8 0-1 % Neutrophils (%) (Auto) 60.9 40.0-77.0 % Lymphocytes (%) (Auto) 23.1 21.0-51.0 % Monocytes (%) (Auto) 14.2 H 3.0-13.0 % Eosinophils (%) (Auto) 0.8 0.0-8.0 % Basophils (%) (Auto) 0.2 0.0-5.0 % Neutrophils # (Auto) 3.1 1.8-7.7 K/uL Lymphocytes # (Auto) 1.2 1.0-4.8 K/uL Monocytes # (Auto) 0.7 0.1-1.0 K/uL Eosinophils # (Auto) 0.04 0.00-0.70 K/uL Basophils # (Auto) 0.01 0.00-0.20 K/uL Absolute Immature Granulocyte (auto 0.04 0-1 K/uL Nucleated Red Blood Cells 0.0 0.0-0.19 % Sodium Level 141 136-145 mmol/L Potassium Level 2.9 *L 3.5-5.1 mmol/L Chloride Level 104 101-111 mmol/L Carbon Dioxide Level 32 21-32 mmol/L Blood Urea Nitrogen 16 7-18 mg/dL Creatinine 1.0 0.5-1.0 mg/dL Glomerular Filtration Rate Calc 66 >90 mL/min Random Glucose 140 H 70-105 mg/dL Total Calcium 7.4 L 8.5-10.1 mg/dL Phosphorus Level 1.8 L 2.5-4.9 mg/dL Magnesium Level 1.80 1.80-2.40 mg/dL Total Bilirubin 0.7 0.2-1.0 mg/dL Aspartate Amino Transf (AST/SGOT) 46 H 10-37 U/L Alanine Aminotransferase (ALT/SGPT) 22 12-78 U/L Alkaline Phosphatase 138 H 50-136 U/L Ammonia 34 H 11-32 umol/L Total Protein 5.7 L 6.0-8.3 g/dL Albumin 2.1 L 3.5-5.0 g/dL Lactate Dehydrogenase 133 81-234 U/L Lactic Acid Level 2.1 0.8-2.5 mmol/L Test 08/29/25 18:32 Range/Units Hepatitis B Surface Antigen. Non-Reactive Nonreactive Hepatitis B Surface Antibody. Negative L Reactive Hepatitis B Core Total Antibody. Non-Reactive Nonreactive Hepatitis C Antibody Non-Reactive Nonreactive Current Medications Medications (Trade) Dose Ordered Sig/Gregory Route PRN Reason Start Time Stop Time Status Last Admin Dose Admin Acetaminophen (TYLenol 325MG TAB) 650 mg Q6H PRN PO MILD PAIN (1-3) 08/29/25 10:00 09/28/25 09:59 Albuterol (DUOneb) 1 udvial Q6H PRN IH SHORTNESS OF BREATH 08/29/25 10:00 09/28/25 09:59 Calcium Gluconate (Calcium Gluc 1gm Vial) 1 gm ONCE IV 08/29/25 09:30 08/29/25 09:23 DC Dextrose (D50w) 50 ml AD PRN IV HYPOGLYCEMIA PROTOCOL 08/29/25 10:00 09/28/25 09:59 Dextrose/Sodium Chloride 1,000 ml @ 0 mls/hr AD IV 08/29/25 12:30 08/29/25 16:05 DC Glucagon (Glucagon 1mg Kit) 1 mg AD PRN IM HYPOGLYCEMIA PROTOCOL 08/29/25 10:00 09/28/25 09:59 Insulin Human Regular (humuLIN R 100 UNIT/ML 3ML) 5 unit ONCE IV 08/29/25 09:30 08/29/25 09:25 DC Insulin Human Regular (humuLIN R 100 UNIT/ML 3ML) INSULIN SLIDING SCAL... ACHS SQ 08/29/25 11:30 09/28/25 11:29 08/30/25 09:52 4 UNIT Insulin Human Regular 100 unit/ Sodium Chloride 101 ml @ 0 mls/hr PROTOCOL IV 08/29/25 12:30 08/29/25 16:05 DC Magnesium Sulfate 50 ml @ 0 mls/hr PROTOCOL IV 08/29/25 12:30 08/29/25 16:05 DC Magnesium Sulfate 50 ml @ 0 mls/hr PROTOCOL IV 08/30/25 10:00 09/29/25 09:59 08/30/25 10:18 25 MLS/HR Meropenem (Merrem 500mg) 500 mg Q24H IVPB 08/29/25 10:00 08/31/25 09:59 DC 08/30/25 09:46 500 MG Norepinephrine Bitartrate 32 mg/ Sodium Chloride 250 ml @ 0 mls/hr Q0M STAT IV 08/29/25 21:01 08/29/25 21:07 DC 08/29/25 21:13 0 MLS/HR Octreotide Acetate 1250 mcg/ Sodium Chloride 250 ml @ 0 mls/hr PROTOCOL IV 08/29/25 08:30 09/28/25 08:29 08/31/25 10:18 5 MLS/HR Ondansetron HCl (zoFRAN 4MG INJ) 4 mg Q6H PRN IVP NAUSEA/VOMITING 08/29/25 09:30 09/28/25 09:29 Pantoprazole Sodium 80 mg/ Sodium Chloride 100 ml @ 10 mls/hr Q10H IV 08/29/25 08:30 09/28/25 08:29 08/31/25 10:13 10 MLS/HR Pharmacy Profile Note (Pharmacy Communication) 1 each ONCE MISC 08/29/25 09:30 08/29/25 09:35 DC Potassium Chloride 100 ml @ 50 mls/hr AD PRN IV POTASSIUM PROTOCOL 08/29/25 12:30 09/28/25 12:29 08/31/25 04:40 50 MLS/HR Sodium Bicarbonate 150 meq/Dextrose 1,150 ml @ 125 mls/hr Q9H12M IVP 08/29/25 10:00 08/30/25 10:12 DC 08/30/25 08:07 125 MLS/HR Sodium Chloride 250 ml @ 0 mls/hr AD IV 08/29/25 17:30 09/28/25 17:29 Sodium Chloride 1,000 ml @ 0 mls/hr Q0M IV 08/29/25 16:00 08/29/25 16:03 DC Sodium Chloride 1,000 ml @ 0 mls/hr Q0M IV 08/29/25 16:00 09/28/25 15:59 08/29/25 16:10 500 MLS/HR Sodium Chloride 1,000 ml @ 125 mls/hr Q8H IV 08/29/25 09:30 08/29/25 09:57 DC Sodium Chloride 1,000 ml @ 150 mls/hr Q6H40M IV 08/29/25 18:30 09/28/25 18:29 08/31/25 03:30 150 MLS/HR Sodium Chloride 1,000 ml @ 200 mls/hr PROTOCOL IV 08/29/25 12:30 08/29/25 16:05 DC Sodium Chloride 1,000 ml @ 999 mls/hr Q1H1M IV 08/29/25 09:30 08/29/25 09:06 DC Thiamine HCl (Vitamin B-1) 200 mg Q12H IVP 08/29/25 09:30 09/02/25 09:30 08/31/25 10:11 200 MG DIAGNOSTICS / RADIOLOGY: PATIENT: DALLAS BUCHANAN MR#: [id number] : 1970 SEX: F AGE: 55 LOCATION: 2CV ORDER 8 STATUS: ADM IN REPORT#: [id number] SERVICE 170 REASON: severe renal failure ORDERING PHYSICIAN: BRADEN CONRTERAS MD PROCEDURE: RENAL - US RENAL SONOGRAM EXAM: RENAL AND URINARY BLADDER ULTRASOUND Technique: Grayscale and color Doppler sonography of both kidneys and the urinary bladder was performed. Study quality is adequate. Evaluation of the bladder and ureteral jets is limited by decompression from an indwelling catheter. Clinical Information: Severe renal failure. Findings: Right kidney: Measures 10.3 ??? 5.3 ??? 4.2 centimeters. Renal cortical thickness and echogenicity are within expected limits for technique. No focal mass is identified. No hydronephrosis. No renal calculi. No perinephric fluid collection. Left kidney: Measures 11.0 ??? 4.8 ??? 3.2 centimeters. The renal parenchyma is diffusely increased in echogenicity relative to the adjacent liver and spleen. No focal mass is identified. No hydronephrosis. No renal calculi. No perinephric fluid collection. Urinary bladder: Decompressed with a Dueñas catheter in situ. Bladder wall measures approximately 3 millimeters, which may appear relatively thick due to underdistention. No intraluminal mass or debris is identified on the limited evaluation. Impression: * Left kidney demonstrates increased parenchymal echogenicity, a nonspecific finding commonly associated with medical renal disease in the setting of renal failure. * No hydronephrosis or renal calculi identified bilaterally. * Decompressed urinary bladder with Dueñas catheter in place; apparent wall thickening likely related to underdistention. /[place] DICTATED BY: EDWIGE LEDESMA MD DATE: 08/29/252248 ELECTRONICALLY SIGNED BY: EDWIGE LEDESMA MD DATE: 08/29/252248 PATIENT: DALLAS BUCHANAN MR#: [id number] : 1970 SEX: F AGE: 55 LOCATION: 2CV ORDER 1540 STATUS: ADM IN REPORT#: [id number] SERVICE 153 REASON: central line placement ORDERING PHYSICIAN: LOBO RICKS PROCEDURE: CXR1VW - CHEST 1VW EXAM: CR Chest, 2 View. CLINICAL HISTORY: central line placement COMPARISON: None provided. FINDINGS: Right IJ central venous catheter tip projects at the distal SVC. Right peripheral line overlies expected location of the right axillary vessels. LUNGS: The lungs show no infiltrate or other acute finding. Mild left basilar atelectasis. PLEURAL SPACES: No pleural effusion or pneumothorax. MEDIASTINUM: Cardiac size and mediastinal contours within normal limits. BONES: No aggressive appearing osseous lesion seen. Pigtail drainage catheter overlies the right upper quadrant. IMPRESSION: 1. Right IJ central venous catheter tip appropriately positioned in the distal SVC. 2. No acute cardiopulmonary findings. /[place] DICTATED BY: ELDON MILLER Jr., MD DATE: 08/29/251744 ELECTRONICALLY SIGNED BY: ELDON MILLER Jr., MD DATE: 08/29/251744 PATIENT: DALLAS BUCHANAN MR#: [id number] : 1970 SEX: F AGE: 55 LOCATION: 2CV ORDER 9 STATUS: ADM IN REPORT#: [id number] SERVICE 7 REASON: coffee ground emesis, hx of abdominal drain, nausea, vomiting, hx of cirrho ORDERING PHYSICIAN: BRADEN CONTRERAS MD PROCEDURE: ABD PEL WO - CT ABDOMEN/PELVIS W/O CONTRAST EXAM: CT Abdomen and Pelvis Without IV contrast CLINICAL HISTORY: coffee ground emesis, hx of abdominal drain, nausea, vomiting, hx of cirrho TECHNIQUE: Axial computed tomography images of the abdomen and pelvis without intravenous contrast. CONTRAST: No IV contrast. COMPARISON: Study dated 08/23/25. FINDINGS: LUNG BASES: Tiny calcified nodules in the posterior basal segment of the right lower lobe. There is mild dependent airspace disease within the bilateral lower lobes that is presumed to reflect atelectasis. No pleural effusions are seen. LIVER: There is cirrhotic hepatic morphology. Several small esophageal varices are noted. GALLBLADDER AND BILE DUCTS: The gallbladder is decompressed with a cholecystostomy tube in place. No biliary ductal dilatation is evident. PANCREAS: Unremarkable. SPLEEN: 2.7 x 2.2 x 5.1 cm infrasplenic collection with adjacent fat stranding and pigtail tube in place. ADRENAL GLANDS: Unremarkable. KIDNEYS, URETERS, AND BLADDER: The kidneys appear within normal limits. There is no hydronephrosis or hydroureter. No urinary calculi are seen. Dueñas's bulb in the urinary bladder with few air foci. STOMACH AND BOWEL: 2.4 cm ileostomy defect in the right iliac fossa and postoperative changes in the bowel loops. No evidence of bowel obstruction. No evidence suggesting enteritis or colitis. APPENDIX: No evidence of acute appendicitis on CT examination. PERITONEUM: No free fluid. No free air. LYMPH NODES: No lymphadenopathy is evident. REPRODUCTIVE: Unremarkable as visualized. VASCULATURE: No evidence of abdominal aortic aneurysm. BONES: No aggressive appearing osseous lesion. No acute osseous pathology evident. Mild degenerative changes in the spine. IMPRESSION: 1. Cirrhotic hepatic morphology. Several small esophageal varices are noted. 2. 2.7 x 2.2 x 5.1 cm infrasplenic collection with adjacent fat stranding and pigtail tube in place. 3. Cholecystostomy tube in decompressed gallbladder. 4. Ileostomy in right iliac fossa with postoperative changes. /[place] DICTATED BY: ELDON MILLER Jr., MD DATE: 08/29/251619 ELECTRONICALLY SIGNED BY: ELDON MILLER Jr., MD DATE: 08/29/251619 ASSESSMENT: Hypovolemic hypochloremic hyponatremia, POA, Improving Hemorrhagic shock - requiring vasopressor support, Improving Acute upper GI bleeding- Hematemesis, dark output from ileostomy bag, POA, Improving Severe hyperkalemia, POA, Resolved Hypokalemia, Not POA Hypophosphatemia, Not POA High anion gap metabolic acidosis, POA, Resolved Hyperammonemia, POA, Improving Lactic acidosis, POA, Resolved Hyperphosphatemia, POA, Resolved Acute renal failure - Prerenal Acute Kidney Injury, POA, Improving Starvation Ketoacidosis, POA Rule out occult sepsis, POA Recent extended hospitalization in [facility], 07/20/2025- 08/25/2025 for sepsis, acute abdomen, POA Severe Dehydration, POA, Improving History of esophageal varices, POA Decompensated liver cirrhosis, POA Hx of acute cholecystitis, s/p cholecystostomy tube placement on 08/02/2025. Perisplenic abscess, s/p CT-guided drainage placement on 08/09/2025. 2.7 x 2.2 x 5.1 cm infrasplenic collection History of gastritis, POA Hx of Generalized peritonitis with ESBL E coli infection, POA Moderate Protein calorie malnutrition POA History of bilious peritonitis with small colonic anastomosis perforation s/p diagnostic laparoscopy, abdominal washout, ileostomy creation by Dr. Gann, 07/21/2025 Hx of DM II, POA Recent colovesical fistula repair with sigmoid colon resection and anastomosis on PLAN: High anion gap metabolic acidosis, Hypovolemic hypochloremic hyponatremia, Severe hyperkalemia, Hyperphosphatemia - On presentation, patient's potassium was 6.8. While Phosphate 7.0. Sodium 119, chloride 87, carbon dioxide 13, consistent with high anion gap metabolic acidosis - EKG was done which showed Sinus rhythm. She received calcium gluconate as well as insulin for hyperkalemia. She also underwent emergent HD. Her potassium improved to 3.5 subsequently. Her sodium also improved to 134, chloride 96, CO2 31 (08/30). - Patient was started on sodium bicarbonate because of acidosis and bicarb deficit. Her BMP Bicarb today is 32. Bicarb drip has been discontinued as per nephrology. - Patient is receiving sodium chloride 150 mls/hr. - Total output in past 24 hours is 2070 vs 3950 input. - Monitor input and output as well as daily weights. - We will follow up with nephrology recommendations and repeat CMP, CBC and related labs in the morning. Hemorrhagic shock, Acute upper GI bleeding- Hematemesis, dark output from ileostomy bag - Patient is maintained on Levophed drip 0.1. It is being weaned off. - She is receiving NaCl 150mls/hr - We have placed GI consult. Patient will undergo Upper endoscopy as per consult after her condition becomes stable. - She continues on Sandostatin and Protonix drip. - Trend hemoglobin and keep it above 7. Patient's hemoglobin 9.9 (08/30) - Keep map above 65. - The patient is currently NPO. Lactic acidosis, starvation acidosis, Suspected occult sepsis. - WBCs are 5.1 (08/31). - We will follow with blood culture and urine culture. - Merrem has reached its stop date. We will follow up with Infectious Disease recommendations. - Patient is currently receiving sodium chloride 150mls/hr. Acute renal failure, Prerenal Acute Kidney Injury, Dehydration - On Presentation, patient's creatinine was 5, BUN 80. - FENa <0.2, Stone <20 - Urine microscopy showed Hyaline and granular casts - Continue NaCl 150mls/hr. - Bicarb drip has been discontinued as per nephrology. - Wean off levophed (currently 0.1) while maintaining MAP>65 - Patient received emergent hemodialysis session for elevated renal parameters as well as electrolyte derangements including Hyperkalemia and acidosis. - Her creatinine and BUN have improved to 1.0 and 16 respectively (08/31) - Transfuse as needed to keep Hb above 7 (Hb=9.0, 08/31/25) - Monitor input and output. Patient's total output in the past24 hours is 2070, versus 3950 input. One point - We will repeat a.m. labs and follow up with Nephrology recommendations. Hyperammonemia - Ammonia, on presentation, was 65. Patient was given lactulose. - On 08/31, ammonia has decreased to 34. - Follow up with morning ammonia levels. Hypokalemia, Hypophosphatemia - Patient's potassium dropped to 2.9 and phosphate 1.8 today. 08/31/2025 - Patient is started on potassium phosphate IV. - We will follow up with Nephrology recommendation and repeat labs in the morning. ATTESTATION BY PHYSICIAN I have seen and examined the patient. I reviewed the documentation, medical decision making, and treatment plan as noted by the resident physician above. I agree with the findings and plan of care. AYAKA BARR MD, MUHAMMAD H MD Aug 31, 2025 14:48
--- NOTE | 2025-08-31 15:11 | PN ---
This is a 55year old female status post anastomotic leak with laparoscopic loop ileostomy performed by Dr. Gann who presented back for severe dehydration with acute renal injury Interval history: This 65-year-old female seen in the ICU Patient is still on Levophed but ICU nursing weaning off Patient making good urine no longer receiving dialysis Patient is NPO in preparation for potential EGD tomorrow with GI WBCs 5.1 with a hemoglobin of 9.0 with no reports of emesis at this time Lengthy conversation had with the patient about the benefits of potential PEG placement before discharge Physical exam General: Awake alert and oriented Heart: Regular rate and rhythm} Lungs: Clear to auscultation no distress Abdomen: [Soft, nontender, nondistended the ostomy functioning properly Assessment : This is a 55year old female status post anastomotic leak with laparoscopic loop ileostomy performed by Dr. Gann who presented back for severe dehydration with acute renal injury Plan: This point in time we will await EGD finding Patient to discuss possible PEG placement with family Patient to remain NPO as per GI recommendations Continue with ICU management Dr. Gann to be updated in patient's status and nursing report any further acute events Surgical case has been discussed with my supervising physician in the above plan was formulated and agreed upon We appreciate the hospitalist team for us to participate in patient's care. Greater than 45 minutes of time spent patient, reviewing chart, working on documentation Vitals/Labs Vital Signs Date Time Temp Pulse Resp B/P (MAP) Pulse Ox O2 Delivery O2 Flow Rate FiO2 08/31/25 13:15 74 14 127/58 (81) 95 08/31/25 12:00 Room Air* 0 21 08/31/25 12:00 98.4 Laboratory Tests 08/31/25 03:52 Medications Current Medications Octreotide Acetate 50 mcg ONCE ONCE IV Last administered on 08/29/25at 09:02; Start 08/29/25 at 08:30; Stop 08/29/25 at 08:31; Status DC Octreotide Acetate 1250 mcg/ Sodium Chloride 250 ml @ 0 mls/hr PROTOCOL IV Last administered on 08/31/25at 10:18; Start 08/29/25 at 08:30; Stop 09/28/25 at 08:29 Pantoprazole Sodium 80 mg ONCE ONCE IVP Last administered on 08/29/25at 09:02; Start 08/29/25 at 08:30; Stop 08/29/25 at 08:31; Status DC Pantoprazole Sodium 80 mg/ Sodium Chloride 100 ml @ 10 mls/hr Q10H IV Last administered on 08/31/25at 10:13; Start 08/29/25 at 08:30; Stop 09/28/25 at 08:29 Promethazine HCl 25 mg ONCE ONCE IM Last administered on 08/29/25at 09:07; Start 08/29/25 at 08:30; Stop 08/29/25 at 08:33; Status DC Sodium Chloride 1,000 ml @ 999 mls/hr Q1H1M IV; Start 08/29/25 at 09:30; Stop 08/29/25 at 09:06; Status DC Calcium Gluconate 1 gm/Sodium Chloride 110 ml @ 110 mls/hr ONCE ONCE IV Last administered on 08/29/25at 09:41; Start 08/29/25 at 09:30; Stop 08/29/25 at 10:29; Status DC Dextrose 50 ml ONCE ONCE IV; Start 08/29/25 at 09:30; Stop 08/29/25 at 09:27; Status DC Insulin Human Regular 5 unit ONCE ONCE IV Last administered on 08/29/25at 09:57; Start 08/29/25 at 09:30; Stop 08/29/25 at 09:31; Status DC Albuterol Sulfate 10 mg ONCE ONCE IH Last administered on 08/29/25at 09:37; Start 08/29/25 at 09:30; Stop 08/29/25 at 09:31; Status DC Lactulose 200 gm ONCE ONCE UT; Start 08/29/25 at 09:30; Stop 08/29/25 at 09:36; Status DC Calcium Gluconate 1 gm ONCE IV; Start 08/29/25 at 09:30; Stop 08/29/25 at 09:23; Status DC Sodium Chloride 1,000 ml @ 125 mls/hr Q8H IV; Start 08/29/25 at 09:30; Stop 08/29/25 at 09:57; Status DC Insulin Human Regular 5 unit ONCE IV; Start 08/29/25 at 09:30; Stop 08/29/25 at 09:25; Status DC Dextrose 50 ml ONCE ONCE IV Last administered on 08/29/25at 09:47; Start 08/29/25 at 09:30; Stop 08/29/25 at 09:31; Status DC Sodium Bicarbonate 50 meq ONCE ONCE IV Last administered on 08/29/25at 09:47; Start 08/29/25 at 09:30; Stop 08/29/25 at 09:31; Status DC Pharmacy Profile Note 1 each ONCE [facility] [place]; Start 08/29/25 at 09:30; Stop 08/29/25 at 09:35; Status DC Ondansetron HCl 4 mg Q6H PRN IVP; Start 08/29/25 at 09:30; Stop 09/28/25 at 09:29 Thiamine HCl 200 mg Q12H IVP Last administered on 08/31/25at 10:11; Start 08/29/25 at 09:30; Stop 09/02/25 at 09:30 Meropenem 500 mg Q24H IVPB Last administered on 08/30/25at 09:46; Start 08/29/25 at 10:00; Stop 08/31/25 at 09:59; Status DC Sodium Chloride 1,000 ml @ 0 mls/hr ONCE ONCE IV Last administered on 08/29/25at 09:47; Start 08/29/25 at 10:00; Stop 08/29/25 at 10:01; Status DC Dextrose 50 ml AD PRN IV; Start 08/29/25 at 10:00; Stop 09/28/25 at 09:59 Glucagon 1 mg AD PRN IM; Start 08/29/25 at 10:00; Stop 09/28/25 at 09:59 Acetaminophen 650 mg Q6H PRN PO; Start 08/29/25 at 10:00; Stop 09/28/25 at 09:59 Albuterol 1 udvial Q6H PRN IH; Start 08/29/25 at 10:00; Stop 09/28/25 at 09:59 Sodium Bicarbonate 50 meq ONCE ONCE IV Last administered on 08/29/25at 10:12; Start 08/29/25 at 10:00; Stop 08/29/25 at 10:05; Status DC Sodium Bicarbonate 150 meq/Dextrose 1,150 ml @ 125 mls/hr Q9H12M IVP Last administered on 08/30/25at 08:07; Start 08/29/25 at 10:00; Stop 08/30/25 at 10:12; Status DC Insulin Human Regular INSULIN SLIDING SCAL... ACHS SQ Last administered on 08/30/25at 09:52; Start 08/29/25 at 11:30; Stop 09/28/25 at 11:29 Sodium Chloride 1,000 ml @ 0 mls/hr ONCE ONCE IV Last administered on 08/29/25at 13:44; Start 08/29/25 at 11:00; Stop 08/29/25 at 11:06; Status DC Sodium Chloride 1,000 ml @ 200 mls/hr PROTOCOL IV; Start 08/29/25 at 12:30; Stop 08/29/25 at 16:05; Status DC Magnesium Sulfate 50 ml @ 0 mls/hr PROTOCOL IV; Start 08/29/25 at 12:30; Stop 08/29/25 at 16:05; Status DC Insulin Human Regular 100 unit/ Sodium Chloride 101 ml @ 0 mls/hr PROTOCOL IV; Start 08/29/25 at 12:30; Stop 08/29/25 at 16:05; Status DC Dextrose/Sodium Chloride 1,000 ml @ 0 mls/hr AD IV; Start 08/29/25 at 12:30; Stop 08/29/25 at 16:05; Status DC Potassium Chloride 100 ml @ 50 mls/hr AD PRN IV Last administered on 08/31/25at 04:40; Start 08/29/25 at 12:30; Stop 09/28/25 at 12:29 Lidocaine HCl 20 ml STK-MED ONCE .ROUTE; Start 08/29/25 at 14:24; Stop 08/29/25 at 14:25; Status DC Lidocaine HCl 20 ml STK-MED ONCE .ROUTE Last administered on 08/29/25at 15:59; Start 08/29/25 at 14:25; Stop 08/29/25 at 14:25; Status DC Sodium Chloride 1,000 ml @ 0 mls/hr Q0M IV; Start 08/29/25 at 16:00; Stop 08/29/25 at 16:03; Status DC Sodium Chloride 1,000 ml @ 0 mls/hr Q0M IV Last administered on 08/29/25at 16:10; Start 08/29/25 at 16:00; Stop 09/28/25 at 15:59 Sodium Chloride 250 ml @ 0 mls/hr AD IV; Start 08/29/25 at 17:30; Stop 09/28/25 at 17:29 Sodium Chloride 1,000 ml @ 0 mls/hr ONCE ONCE IV Last administered on 08/29/25at 19:57; Start 08/29/25 at 17:30; Stop 08/29/25 at 17:35; Status DC Sodium Chloride 1,000 ml @ 150 mls/hr Q6H40M IV Last administered on 08/31/25at 03:30; Start 08/29/25 at 18:30; Stop 09/28/25 at 18:29 Dexmedetomidine/ Sodium Chloride 400 mcg STK-MED ONCE IV; Start 08/29/25 at 19:56; Stop 08/29/25 at 19:56; Status DC Norepinephrine Bitartrate 32 mg/ Sodium Chloride 250 ml @ 0 mls/hr Q0M STAT IV Last administered on 08/29/25at 21:13; Start 08/29/25 at 21:01; Stop 08/29/25 at 21:07; Status DC Magnesium Sulfate 50 ml @ 0 mls/hr PROTOCOL IV Last administered on 08/30/25at 10:18; Start 08/30/25 at 10:00; Stop 09/29/25 at 09:59 Morphine Sulfate 2 mg ONCE ONCE IVP Last administered on 08/31/25at 02:24; Start 08/31/25 at 02:30; Stop 08/31/25 at 02:31; Status DC Potassium Phosphate 250 ml @ 42 mls/hr PROTOCOL ONCE IV Last administered on 08/31/25at 10:11; Start 08/31/25 at 09:00; Stop 08/31/25 at 14:57; Status DC Multivitamins/ Minerals 10 ml/ Chromium/Copper/ Manganese/Zinc 3 ml/Amino Acids/ Electrolytes/ Dextrose 2,000 ml @ 83 mls/hr ONCE ONCE IV; Start 08/31/25 at 20:00; Stop 09/01/25 at 20:05 BENEDICTO OBRIEN Jr. PAC Aug 31, 2025 15:11
--- NOTE | 2025-08-31 15:39 | PN ---
GASTROENTEROLOGY PROGRESS NOTE Date of Visit: Aug 31, 2025 Time of Visit: 15:34 Events / Notes: [08/31/25: No acute events overnight. Patient's BP is are holding with some BP is at 90s/50s lowest BP of 80/48.. Remains afebrile. Patient has had a total of 540 mL of ileostomy output, 25 mL of drain output. WBC of 5.1, hemoglobin 9.0, platelets 130. Potassium 2.9, glucose 140, calcium 7.4, phosphorus 1.8, AST 46, alkaline phosphatase 138. Ammonia 34, total protein 5.7, albumin 2.1. Hepatitis profile negative. Patient off pressors at 1805. Will be started on midodrine. Patient awake, alert, and oriented in no acute distress. Daughter at bedside. Informed possible EGD evaluation in am if patient is able to be off pressors. They agreed. ] Review of Systems: CONSTITUTIONAL: No malaise or change in sensation of wellbeing. ENMT: No rhinorrhea, otorrhea, sinus pain, ear ache. CARDIOVASCULAR: No angina, palpitations, orthopnea or paroxysmal dyspnea. RESPIRATORY: No SOB. GASTROINTESTINAL: No abdominal pain, nausea, vomiting, diarrhea, hematemesis, melena or change in the patient's habitual bowel movements consistency/number. GENITOURINARY: No dysuria, hematuria or change in bladder continence. MUSCULOSKELETAL: No new muscle pain or decrease in muscular strength. No new joint swelling, redness or tenderness. SKIN: No new rash. Physical Exam: GEN: Awake, alert, oriented in person, time and place, and in no acute distress. HEENT: No rhinorrhea. Oral mucosa is moist. CHEST: Lung auscultation revealed normal breath sounds bilaterally. CARDIAC:Heart sounds are regular. ABD: Soft, non-tender and not distended. No peritoneal signs on palpation. Normal bowel sounds. Ileostomy in place with watery output. Last bm: 08/30/25 EXT: No cyanosis or clubbing. No edema. SKIN: Intact. No rashes. NEURO: Alert and oriented to name, place and person.No focal motor deficits. Normal speech. Vital Signs (last 8hr) Date Time Temp Pulse Resp B/P (MAP) Pulse Ox O2 Delivery O2 Flow Rate FiO2 08/31/25 13:15 74 14 127/58 (81) 95 08/31/25 13:00 70 16 97/53 (68) 98 08/31/25 12:45 79 22 107/59 (75) 98 08/31/25 12:30 71 18 108/56 (73) 98 08/31/25 12:15 69 21 108/56 (73) 97 08/31/25 12:00 73 15 100/53 (69) 97 08/31/25 12:00 97 Room Air* 0 21 08/31/25 12:00 98.4 08/31/25 11:45 73 12 90/51 (64) 98 08/31/25 11:30 75 21 103/54 (70) 96 08/31/25 11:15 72 20 102/59 (73) 95 08/31/25 11:00 71 22 110/59 (76) 96 08/31/25 10:45 77 19 101/54 (70) 95 08/31/25 10:30 74 20 95/53 (67) 96 08/31/25 10:15 78 14 103/57 (72) 96 08/31/25 10:00 56 14 91/50 (64) 99 08/31/25 09:45 78 20 91/49 (63) 97 08/31/25 09:30 81 14 80/48 (59) 95 08/31/25 09:15 78 18 93/51 (65) 96 08/31/25 09:00 79 21 92/51 (65) 97 08/31/25 08:45 82 21 92/50 (64) 97 08/31/25 08:30 74 23 115/63 (80) 96 08/31/25 08:15 71 19 126/69 (88) 96 08/31/25 08:00 97 Room Air* 0 21 08/31/25 08:00 98.1 08/31/25 08:00 80 20 130/68 (88) 100 08/31/25 07:45 74 13 101/59 (73) 96 Laboratory: [ ] Laboratory: Test 08/31/25 10:28 08/31/25 03:52 08/30/25 03:46 08/29/25 20:40 Range/Units Whole Blood Glucose 124 H 70-110 MG/DL White Blood Count 5.1 4.8-10.8 K/uL Red Blood Count 2.99 L 4.00-5.50 MIL/uL Hemoglobin 9.0 L 12.0-16.0 g/dL Hematocrit 26.7 L 36-48 % Mean Corpuscular Volume 89.3 79-99 fL Mean Corpuscular Hemoglobin 30.1 27.0-33.0 pg Mean Corpuscular Hemoglobin Concent 33.7 32.0-36.0 g/dL Red Cell Distribution Width 17.1 H 11.0-15.5 % Platelet Count 130 # 130-400 K/uL Mean Platelet Volume 9.4 7.5-10.5 fL Immature Granulocyte % (Auto) 0.8 0-1 % Neutrophils (%) (Auto) 60.9 40.0-77.0 % Lymphocytes (%) (Auto) 23.1 21.0-51.0 % Monocytes (%) (Auto) 14.2 H 3.0-13.0 % Eosinophils (%) (Auto) 0.8 0.0-8.0 % Basophils (%) (Auto) 0.2 0.0-5.0 % Neutrophils # (Auto) 3.1 1.8-7.7 K/uL Lymphocytes # (Auto) 1.2 1.0-4.8 K/uL Monocytes # (Auto) 0.7 0.1-1.0 K/uL Eosinophils # (Auto) 0.04 0.00-0.70 K/uL Basophils # (Auto) 0.01 0.00-0.20 K/uL Absolute Immature Granulocyte (auto 0.04 0-1 K/uL Nucleated Red Blood Cells 0.0 0.0-0.19 % Sodium Level 141 136-145 mmol/L Potassium Level 2.9 *L 3.5-5.1 mmol/L Chloride Level 104 101-111 mmol/L Carbon Dioxide Level 32 21-32 mmol/L Blood Urea Nitrogen 16 7-18 mg/dL Creatinine 1.0 0.5-1.0 mg/dL Glomerular Filtration Rate Calc 66 >90 mL/min Random Glucose 140 H 70-105 mg/dL Total Calcium 7.4 L 8.5-10.1 mg/dL Phosphorus Level 1.8 L 2.5-4.9 mg/dL Magnesium Level 1.80 1.80-2.40 mg/dL Total Bilirubin 0.7 0.2-1.0 mg/dL Aspartate Amino Transf (AST/SGOT) 46 H 10-37 U/L Alanine Aminotransferase (ALT/SGPT) 22 12-78 U/L Alkaline Phosphatase 138 H 50-136 U/L Ammonia 34 H 11-32 umol/L Total Protein 5.7 L 6.0-8.3 g/dL Albumin 2.1 L 3.5-5.0 g/dL Lactate Dehydrogenase 133 81-234 U/L Lactic Acid Level 2.1 0.8-2.5 mmol/L Test 08/29/25 18:32 Range/Units Hepatitis B Surface Antigen. Non-Reactive Nonreactive Hepatitis B Surface Antibody. Negative L Reactive Hepatitis B Core Total Antibody. Non-Reactive Nonreactive Hepatitis C Antibody Non-Reactive Nonreactive Current Medications Medications (Trade) Dose Ordered Sig/Gregory Route PRN Reason Start Time Stop Time Status Last Admin Dose Admin Acetaminophen (TYLenol 325MG TAB) 650 mg Q6H PRN PO MILD PAIN (1-3) 08/29/25 10:00 09/28/25 09:59 Albuterol (DUOneb) 1 udvial Q6H PRN IH SHORTNESS OF BREATH 08/29/25 10:00 09/28/25 09:59 Calcium Gluconate (Calcium Gluc 1gm Vial) 1 gm ONCE IV 08/29/25 09:30 08/29/25 09:23 DC Dextrose (D50w) 50 ml AD PRN IV HYPOGLYCEMIA PROTOCOL 08/29/25 10:00 09/28/25 09:59 Dextrose/Sodium Chloride 1,000 ml @ 0 mls/hr AD IV 08/29/25 12:30 08/29/25 16:05 DC Glucagon (Glucagon 1mg Kit) 1 mg AD PRN IM HYPOGLYCEMIA PROTOCOL 08/29/25 10:00 09/28/25 09:59 Insulin Human Regular (humuLIN R 100 UNIT/ML 3ML) 5 unit ONCE IV 08/29/25 09:30 08/29/25 09:25 DC Insulin Human Regular (humuLIN R 100 UNIT/ML 3ML) INSULIN SLIDING SCAL... ACHS SQ 08/29/25 11:30 09/28/25 11:29 08/30/25 09:52 4 UNIT Insulin Human Regular 100 unit/ Sodium Chloride 101 ml @ 0 mls/hr PROTOCOL IV 08/29/25 12:30 08/29/25 16:05 DC Magnesium Sulfate 50 ml @ 0 mls/hr PROTOCOL IV 08/29/25 12:30 08/29/25 16:05 DC Magnesium Sulfate 50 ml @ 0 mls/hr PROTOCOL IV 08/30/25 10:00 09/29/25 09:59 08/30/25 10:18 25 MLS/HR Meropenem (Merrem 500mg) 500 mg Q24H IVPB 08/29/25 10:00 08/31/25 09:59 DC 08/30/25 09:46 500 MG Norepinephrine Bitartrate 32 mg/ Sodium Chloride 250 ml @ 0 mls/hr Q0M STAT IV 08/29/25 21:01 08/29/25 21:07 DC 08/29/25 21:13 0 MLS/HR Octreotide Acetate 1250 mcg/ Sodium Chloride 250 ml @ 0 mls/hr PROTOCOL IV 08/29/25 08:30 09/28/25 08:29 08/31/25 10:18 5 MLS/HR Ondansetron HCl (zoFRAN 4MG INJ) 4 mg Q6H PRN IVP NAUSEA/VOMITING 08/29/25 09:30 09/28/25 09:29 Pantoprazole Sodium 80 mg/ Sodium Chloride 100 ml @ 10 mls/hr Q10H IV 08/29/25 08:30 09/28/25 08:29 08/31/25 10:13 10 MLS/HR Pharmacy Profile Note (Pharmacy Communication) 1 each ONCE MISC 08/29/25 09:30 08/29/25 09:35 DC Potassium Chloride 100 ml @ 50 mls/hr AD PRN IV POTASSIUM PROTOCOL 08/29/25 12:30 09/28/25 12:29 08/31/25 04:40 50 MLS/HR Sodium Bicarbonate 150 meq/Dextrose 1,150 ml @ 125 mls/hr Q9H12M IVP 08/29/25 10:00 08/30/25 10:12 DC 08/30/25 08:07 125 MLS/HR Sodium Chloride 250 ml @ 0 mls/hr AD IV 08/29/25 17:30 09/28/25 17:29 Sodium Chloride 1,000 ml @ 0 mls/hr Q0M IV 08/29/25 16:00 08/29/25 16:03 DC Sodium Chloride 1,000 ml @ 0 mls/hr Q0M IV 08/29/25 16:00 09/28/25 15:59 08/29/25 16:10 500 MLS/HR Sodium Chloride 1,000 ml @ 125 mls/hr Q8H IV 08/29/25 09:30 08/29/25 09:57 DC Sodium Chloride 1,000 ml @ 150 mls/hr Q6H40M IV 08/29/25 18:30 09/28/25 18:29 08/31/25 03:30 150 MLS/HR Sodium Chloride 1,000 ml @ 200 mls/hr PROTOCOL IV 08/29/25 12:30 08/29/25 16:05 DC Sodium Chloride 1,000 ml @ 999 mls/hr Q1H1M IV 08/29/25 09:30 08/29/25 09:06 DC Thiamine HCl (Vitamin B-1) 200 mg Q12H IVP 08/29/25 09:30 09/02/25 09:30 08/31/25 10:11 200 MG Diagnostics / Radiology: [COPY/PASTE HERE IF NO REPORTS PLEASE DELETE SECTION] Assessment: [Concern for GI bleed anemia Liver cirrhosis Ileostomy status Hypertension Type 2 diabetes ] Plan: [ Case discussed with Dr. Adams. Plan for EGD possibly in am if patient remains off pressors. Recommend patient continue with Sandostatin drip Recommend patient continue with pantoprazole drip Please call with questions, concerns, and change in clinical status and any signs of any overt GI bleed Thank you for this consult. NIKKI MUNOZ Aug 31, 2025 15:39
--- NOTE | 2025-08-31 17:53 | HMCIMG ---
EXAM: CR Chest, 1 View (Portable, Supine). CLINICAL HISTORY: Chest pain. COMPARISON: CR Chest, 2 View ??? 08/30/2025 01:13 AM EDT. FINDINGS: LUNGS: Lungs are clear. No focal consolidation, pulmonary edema, or acute infiltrate. PLEURAL SPACES: No pleural effusion or pneumothorax. MEDIASTINUM: Cardiac size and mediastinal contours within normal limits. Right internal jugular central venous catheter remains in similar position with the tip projecting over the distal superior vena cava, unchanged from prior. BONES: No acute osseous abnormality. LINES/DEVICES: Right IJ central venous catheter as described. Monitoring leads noted. No new devices identified. IMPRESSION: * Stable position of right IJ central venous catheter with tip at distal SVC. * No pneumothorax or acute cardiopulmonary abnormality. * No significant interval change compared with 08/30/2025 . /[place]
--- NOTE | 2025-08-31 18:00 | NUR ---
NURSING NOTE BEAU WITH GI ROUND ON PATIENT, LEVO DRIP STOPPED, OK TO GIVE MIDODRINE PO TOLERATED. IF BLOOD PRESSURE SUSTAINS WITHOUT PRESSOR CALL DR. MINA HODGE TO SEE IF POSSIBLE TO SCHEDULE EGD FOR TOMORROW. CARE ONGOING.
--- NOTE | 2025-08-31 20:07 | PN ---
FOLLOWUP PROGRESS NOTE SUBJECTIVE: This is a 55-year-old female who initially presented to the hospital with acute renal failure. The patient with significant hyperkalemia requiring short course of dialysis. The patient's renal function has improved. The patient with a history of ileostomy in the past. The patient is being seen by Surgical Service. The patient is also being seen by GI service and the patient is being seen as a followup visit for all of the above. REVIEW OF SYSTEMS: CONSTITUTIONAL: She is feeling improved. HEENT: No change in vision. No change in hearing. CARDIOVASCULAR: There is no current chest pains or palpitations. PULMONARY: There is no shortness of breath. GASTROINTESTINAL: As described above. MUSCULOSKELETAL: Complains of weakness. PHYSICAL EXAMINATION: VITAL SIGNS: Blood pressure is 132/58, pulse 80. GENERAL: She is a chronically ill female, much older than appearing. HEENT: Head is atraumatic. Pupils are equal, round and reactive to light. Oropharynx is without exudate. Nares clear. NECK: There is no JVP. There is no thyromegaly, no mass. CARDIOVASCULAR: Regular. There is no S3 or S4 gallop. LUNGS: Coarse with equal thoracic movement. ABDOMEN: Soft, nondistended, and nontender. EXTREMITIES: Reveal no clubbing or cyanosis. NEUROLOGICAL: She is much more awake and alert. LABORATORY DATA: Sodium 141, potassium 2.9, BUN 16, creatinine 1, phosphorus is 1.8. IMPRESSION: Acute on chronic renal failure. Electrolyte abnormalities. Hypotension. Diabetes mellitus. PLAN: The patient's electrolytes will all be aggressively repleted. The patient is being seen by GI service as well as Surgical Service and will follow closely. The patient will be given a one-time dose of K-Phos. We will follow closely. There is no further need for any form of renal replacement therapy at this time. The patient had multiple questions, all of which were answered. TID: [id number] RECEIPT: [id number]
[2025-08-31] MEDS: M.V.I. IV [ADULT] 10 ML, MULTITRACE-4 ADULT 10ML VIAL 3 ML in CLINIMIX-E4.25%AA/D5+LYT2... IV ONE (20:53)
--- NOTE | 2025-08-31 21:32 | NUR ---
Mone Orellana Spoke with Mat RIZZO in regards to patient's PPN fluid intake and current NS 0.9% running at 150 ml/hr MATTHIAS stated that for tonight, the NS may be stopped and just infuse her PPN fluids at 83 ml/hr. Tomorrow during the day, they may re-assess if patient needs to continue on her NS fluids. In conclusion, NS was stopped and switched at for her PPN IV infusion at 83 ml/hr.
--- NOTE | 2025-08-31 21:57 | PN ---
INFECTIOUS DISEASE PROGRESS NOTE Date of Service: Aug 31, 2025 SUBJECTIVE: This is a 55-year-old female patient who remains in the ICU room 214. Patient is awake, alert and oriented and able to answer questions appropriately. No more episodes of coffee-ground emesis. The hemoglobin today dropped to 9.0. Patient is hypokalemic with potassium level of 2.9 and being replaced. The renal function has improved and today's BUN is 16 and creatinine of 1.0. Remains afebrile, temperature is 98.4. We will continue on Meropenem. Per report patient will be undergoing an EGD once she is more stable. Very small amount of bloody drainage observe in the left percutaneous drainage catheter bag. We will continue to monitor patient closely. PHYSICAL EXAM EYES: Anicteric. Pupils equal and reactive. HENT: No oral thrush seen, moist Oral mucosa. NECK: Supple, no JVD or thyromegaly. LUNGS: Good air entry. No rales, no rhonchi. CARDIOVASCULAR: S1, S2 regular. No murmur heard. ABDOMEN: Soft, non tender, bowel sounds present, no organomegaly. Right ileostomy. Left Perisplenic abscess percutaneous drainage catheter. CENTRAL NERVOUS SYSTEM: Awake, alert, oriented x 3. SKIN: No rashes, no swelling. LYMPHATICS: No peripheral lymphadenopathy. MUSCULOSKELETAL: No joint swelling, erythema or tenderness. EXTREMITIES: No cyanosis or clubbing. BACK: No deformity, no pressure ulcer. GENITOURINARY: No dysuria or hematuria. Dueñas catheter. Vital Sign (Last 12 Hours) 08/31/25 08/31/25 08/31/25 08/31/25 10:00 10:15 10:30 10:45 Pulse 56 78 74 77 Resp 14 14 20 19 B/P (MAP) 91/50 (64) 103/57 (72) 95/53 (67) 101/54 (70) Pulse Ox 99 96 96 95 08/31/25 08/31/25 08/31/25 08/31/25 11:00 11:15 11:30 11:45 Pulse 71 72 75 73 Resp 22 20 21 12 B/P (MAP) 110/59 (76) 102/59 (73) 103/54 (70) 90/51 (64) Pulse Ox 96 95 96 98 08/31/25 08/31/25 08/31/2525 12:00 12:00 12:00 12:15 Temp 98.4 Pulse 73 69 Resp 15 21 B/P (MAP) 100/53 (69) 108/56 (73) Pulse Ox 97 97 97 O2 Delivery Room Air* O2 Flow Rate 0 FiO2 21 08/31/25 08/31/25 08/31/25 08/31/25 12:30 12:45 13:00 13:15 Pulse 71 79 70 74 Resp 18 22 16 14 B/P (MAP) 108/56 (73) 107/59 (75) 97/53 (68) 127/58 (81) Pulse Ox 98 98 98 95 08/31/25 08/31/25 08/31/25 08/31/25 13:30 13:45 14:00 14:15 Pulse 71 72 68 66 Resp 15 25 15 17 B/P (MAP) 111/60 (77) 131/66 (87) 118/67 (84) 118/54 (75) Pulse Ox 95 96 97 98 08/31/25 08/31/25 08/31/25 08/31/25 14:30 14:45 15:00 15:15 Pulse 75 74 73 82 Resp 22 14 17 26 B/P (MAP) 106/59 (75) 103/56 (72) 92/43 (59) 108/56 (73) Pulse Ox 98 97 98 96 08/31/25 08/31/25 08/31/25 08/31/25 15:30 15:45 16:00 16:00 Pulse 69 73 81 Resp 21 13 27 B/P (MAP) 101/70 (80) 89/58 (68) 91/53 (66) Pulse Ox 97 96 97 95 O2 Delivery Room Air* O2 Flow Rate 0 FiO2 21 08/31/25 08/31/25 08/31/25 08/31/25 16:00 16:15 16:30 16:45 Temp 98.4 Pulse 73 74 72 Resp 23 19 17 B/P (MAP) 94/54 (67) 99/51 (67) 103/52 (69) Pulse Ox 95 96 95 08/31/25 08/31/25 08/31/25 08/31/25 17:00 17:15 17:30 17:45 Pulse 73 70 70 70 Resp 22 22 15 15 B/P (MAP) 97/56 (70) 118/58 (78) 100/54 (69) 108/64 (79) Pulse Ox 95 97 98 96 08/31/25 08/31/25 08/31/25 08/31/25 18:00 18:15 19:00 19:15 Pulse 73 73 65 61 Resp 20 20 30 17 B/P (MAP) 99/57 (71) 97/54 (68) 115/61 (79) 122/66 (84) Pulse Ox 95 97 97 98 FiO2 21 08/31/25 08/31/25 08/31/25 08/31/25 19:30 19:37 19:45 20:00 Temp 99.5 Pulse 60 61 60 54 Resp 14 18 21 22 B/P (MAP) 134/69 (90) 128/70 (89) 129/60 (83) Pulse Ox 98 98 98 O2 Delivery N/A Room Air FiO2 21 21 08/31/25 08/31/25 08/31/25 08/31/25 20:00 20:15 20:30 20:45 Temp 99.5 Pulse 54 57 63 Resp 31 19 19 B/P (MAP) 121/60 (80) 121/67 (85) 126/66 (86) Pulse Ox 99 98 99 O2 Delivery Room Air FiO2 21 08/31/25 08/31/25 21:00 21:15 Pulse 59 56 Resp 25 23 B/P (MAP) 137/93 (108) 120/57 (78) Pulse Ox 98 96 FiO2 21 Intake & Output (last 24hrs) 08/30/25 08/30/25 08/31/25 15:00 23:00 07:00 Intake Total 1513.1 ml 1357.6 ml 1293.0 ml Output Total 1320 ml 1565 ml Balance 1513.1 ml 37.6 ml -272.0 ml LABS: Laboratory: Test 08/31/25 20:32 08/31/25 03:52 08/30/25 03:46 Range/Units Whole Blood Glucose 106 70-110 MG/DL White Blood Count 5.1 4.8-10.8 K/uL Red Blood Count 2.99 L 4.00-5.50 MIL/uL Hemoglobin 9.0 L 12.0-16.0 g/dL Hematocrit 26.7 L 36-48 % Mean Corpuscular Volume 89.3 79-99 fL Mean Corpuscular Hemoglobin 30.1 27.0-33.0 pg Mean Corpuscular Hemoglobin Concent 33.7 32.0-36.0 g/dL Red Cell Distribution Width 17.1 H 11.0-15.5 % Platelet Count 130 # 130-400 K/uL Mean Platelet Volume 9.4 7.5-10.5 fL Immature Granulocyte % (Auto) 0.8 0-1 % Neutrophils (%) (Auto) 60.9 40.0-77.0 % Lymphocytes (%) (Auto) 23.1 21.0-51.0 % Monocytes (%) (Auto) 14.2 H 3.0-13.0 % Eosinophils (%) (Auto) 0.8 0.0-8.0 % Basophils (%) (Auto) 0.2 0.0-5.0 % Neutrophils # (Auto) 3.1 1.8-7.7 K/uL Lymphocytes # (Auto) 1.2 1.0-4.8 K/uL Monocytes # (Auto) 0.7 0.1-1.0 K/uL Eosinophils # (Auto) 0.04 0.00-0.70 K/uL Basophils # (Auto) 0.01 0.00-0.20 K/uL Absolute Immature Granulocyte (auto 0.04 0-1 K/uL Nucleated Red Blood Cells 0.0 0.0-0.19 % Sodium Level 141 136-145 mmol/L Potassium Level 2.9 *L 3.5-5.1 mmol/L Chloride Level 104 101-111 mmol/L Carbon Dioxide Level 32 21-32 mmol/L Blood Urea Nitrogen 16 7-18 mg/dL Creatinine 1.0 0.5-1.0 mg/dL Glomerular Filtration Rate Calc 66 >90 mL/min Random Glucose 140 H 70-105 mg/dL Total Calcium 7.4 L 8.5-10.1 mg/dL Phosphorus Level 1.8 L 2.5-4.9 mg/dL Magnesium Level 1.80 1.80-2.40 mg/dL Total Bilirubin 0.7 0.2-1.0 mg/dL Aspartate Amino Transf (AST/SGOT) 46 H 10-37 U/L Alanine Aminotransferase (ALT/SGPT) 22 12-78 U/L Alkaline Phosphatase 138 H 50-136 U/L Ammonia 34 H 11-32 umol/L Total Protein 5.7 L 6.0-8.3 g/dL Albumin 2.1 L 3.5-5.0 g/dL Lactate Dehydrogenase 133 81-234 U/L ASSESSMENT: Acute hypoxic respiratory failure requiring oxygen support, resolving. Possible Sepsis. Gastrointestinal bleeding. Acute renal failure requiring dialysis, resolved. Severe Dehydration. Hypokalemia. Hyponatremia, resolved. Diabetes mellitus. Perisplenic abscess with a recent CT-guided drainage placement on 08/09/2025. Cholecystostomy tube placement on 08/02/2025 due to acute cholecystitis. Recent laparoscopy, abdominal washout, ileostomy creation on 07/21/2025. PLAN: Continue Meropenem. Continue vasopressor support. Continue critical care support. Continue antidiabetics. Monitor for bleeding. Continue IV fluids. Pending an EGD once patient is more stable. Continues on Sandostatin and Protonix drip. This case was reviewed and discussed with my supervising physician Dr. Tripathi and the above assessment and plan was formulated and agreed upon. ATTESTATION BY PHYSICIAN I have seen and examined the patient. I reviewed the documentation, medical decision making, and treatment plan as noted by the mid-level provider above. I agree with the findings and plan of care. AMIE TRIPATHI MD, [facility] Aug 31, 2025 21:57
--- NOTE | 2025-08-31 22:46 | NUR ---
Dr. Hurtado Paged Paged Dr. Hurtado in regards to patient being hemodynamically stable without pressor support. Paged at phone number . Awaiting call back from doctor.
[2025-08-31] MEDS ORDERED: PHARMACY COMMUNICATION MISC SCH (23:30)
[2025-08-31] MEDS: MEROPENEM 500MG 500 MG VIAL IVPB SCH (23:33)
--- NOTE | 2025-08-31 23:57 | NUR ---
Dr. Hurtado Paged Cont. Spoke with Dr. Hurtado in regards for possible scheduling for EGD with Anesthesia tomorrow (08/28/2025). Dr. Hurtado stated that she would be placing the patient for the schedule tomorrow and to keep patient NPO after midnight. Orders read back and confirmed.
[2025-09-01] VITALS (53 sets, daily range): BP systolic 95–131; BP diastolic 52–71; PULSE 53–78; RESP 13–28; TEMP 98.1–99.1; O2SAT 95–99
--- NOTE | 2025-09-01 00:04 | NUR ---
Stockbroker Aware of EGD Today Made HS aware of patient's procedure for an EGD on 09/01/2025.
[2025-09-01 04:54] LABS: ASPARTATE AMINOTRANSFERASE 40.0 U/L (10-37); CREATININE 0.8 mg/dL (0.5-1.0); GLOMERULAR FILTR. RATE CALC 86.0 mL/min (>90); GLUCOSE,RANDOM 157.0 mg/dL (70-105); PHOSPHORUS 2.0 mg/dL (2.5-4.9); SODIUM SERUM 141.0 mmol/L (136-145); TOTAL PROTEIN, SERUM 5.4 g/dL (6.0-8.3); UREA NITROGEN, BLOOD 14.0 mg/dL (7-18)
[2025-09-01 04:58] LABS: NUCLEATED RED BLOOD CELLS 0.0 % (0.0-0.19); PLATELET COUNT (AUTO) 96.0 K/uL (130-400); RED BLOOD CELL COUNT(AUTO) 2.89 MIL/uL (4.00-5.50); RED CELL DISTRIBUTION WIDTH 17.3 % (11.0-15.5); WHITE BLOOD COUNT (AUTO) 3.4 K/uL (4.8-10.8)
--- NOTE | 2025-09-01 06:24 | PN ---
[facility] PROGRESS NOTE Date of Service: Sep 01, 2025 Time of Service: 06:24 SUBJECTIVE: As per admission notes "50-year-old female with underlying history of type 2 diabetes mellitus, history of liver cirrhosis, prior history of esophageal varices requiring banding in May,, history of robotic sigmoid resection with takedown of colovesical fistula who was recently hospitalized in [facility] from 07/20/2025 - 08/25/2025 patient was found to have bilious peritonitis with 2 mm perforation of colonic anastomosis requiring diagnostic laparoscopy, abdominal washout and drain placement with creation of diverting loop ileostomy. Patient was hospitalized for about one month and subsequently required IR guided drain placement as well. She was just discharged from the hospital on 08/25/2025. Patient's daughter reports that patient was having nausea and vomiting with poor oral intake at home. She started to have coffee-ground emesis today and she also noticed some right streaks of blood with a coffee-ground emesis. Stool has also been dark in the ileostomy bag. Patient is having moderate intensity abdominal pain as well. She has not been taking any NSAIDs. Daughter reports that patient has been very weak since her discharge in very debilitated. Patient denies active chest pain. Denies active shortness of breath. On presentation to the hospital, patient was noted to be afebrile with T-max of 97.5 F, heart rate of 100, blood pressure of 127/91. [place] [address], hemoglobin of 16.4, platelet count of 080052. BMP was repeated twice, BMP showed sodium of 117, potassium 7.0, chloride of 88, CO2 of seven, BUN of 83, creatinine 5.0, blood glucose of 99, calcium 10.4. Blood gas showed pH of 7.28, bicarb of close to eight, CO2 of 18, lactic acid of three. Patient will be admitted to ICU. Patient is presenting with severe renal failure with hyperkalemia and severe metabolic acidosis. Patient also with concerns for upper GI bleeding with coffee-ground emesis. Patient remains critically ill consultation with Intensive Care, Nephrology, GI will be requested. We we will obtain a CT abdomen pelvis without contrast for further evaluation as well. Patient is critically ill. Plan of care was discussed with patient and daughter at bedside" 08/30/2025 Patient was seen and examined at bedside. Her blood pressure has been low, 88/54, heart rate 86. She is currently on Levophed 0.2 Mcg, octreotide, Protonix, sodium bicarbonate drip. She received 2nd hemodialysis session yesterday. As per Nephrology, she will continue to receive dialysis inpatient. Her high anion gap metabolic acidosis is improving with sodium 134, carbon dioxide 31, chloride 96. Her creatinine has trended down from 5-1.8. General surgery consult is on board and we will follow up with their recommendations. Additionally, in the light of history of liver cirrhosis with esophageal varices, her recent hematemesis will be evaluated with GI consult and possible endoscopy. We discussed this with the patient and her family members present besides. Patient is started on Merrem and blood culture, urine cultures show no growth so far. Her lactic acid has trended down from 3.1 to 2.1. 08/31/2025 Patient was seen and examined at bedside in room 214. She continues to be on Levophed 0.1 which is being weaned off. She is also on Sandostatin and Protonix drip. Patient complained of mild pain along the sides of her drain but denied any nausea or episode of vomiting since Saturday. Minimal drainage was noted. Sodium bicarb was discontinued as per Nephrology. Her lab markers have improved with sodium 141, chloride 104, bicarb 32, creatinine 1, BUN 16, ammonia 34. Her urine sodium was less than 20 consistent with prerenal CYNTHIA. We are pending blood and urine culture results. Her total output in the past24 hours has been optimal, 2069. She is on sodium chloride 150 mL/hour. We are following gastroenterology recommendations of possible upper endoscopy in the morning if patient condition remains stable. REVIEW OF SYSTEMS CONSTITUTIONAL: malaise, poor oral intake NEUROLOGICAL: Denies headache, amaurosis fugax, motor weakness, sensory deficit, vertigo/spinning sensation, gait abnormalities, or tremors. ENT: No hearing loss, otalgia, otorrhea, rhinitis, rhinorrhea, hoarseness, or sore throat. CARDIOVASCULAR: Denies any exertional angina, dyspnea on exertion, orthopnea, paroxysmal nocturnal dyspnea, palpitations, life-threatening arrhythmias, claudication. PULMONARY: Denies any shortness of breath, cough, phlegm/sputum, hemoptysis, pleuritic chest pain. SLEEP: Denies morning headaches, daytime somnolence or napping. Denies difficulty falling asleep, staying asleep, waking from sleep. Denies knowledge of snoring. GASTROINTESTINAL: nausea, vomiting, abdominal pain, melena, coffee ground emesis GENITOURINARY: Urine output has been very low ENDOCRINOLOGIC: Denies polyuria, polydipsia, polyphagia or heat/cold intolerances. PHYSICAL EXAM GENERAL APPEARANCE: The patient is awake, alert, appears chronically ill and very debilitated NEUROLOGICAL: Cranial nerves II-XII grossly intact. Neurological examination is non focal with spontaneous movement of upper and lower extremities HEENT: Face is symmetric. Pupils are equal and reactive. Extraocular movements are intact. NECK: Supple. No JVD. No thyromegaly. No submental, submandibular, pre- /postauricular, occipital or supraclavicular lymphadenopathy. CHEST: Normal chest expansion. No Telemetry. LUNGS: Absence of any rales, rhonchi or any wheezing. CARDIOVASCULAR: Regular. S1 and S2 normal. No appreciable rubs, murmurs or gallops. ABDOMEN: tenderness to palpation of the epigastric region, no rebound noted, there is abdominal drains noted : Deferred. EXTREMITIES: Non-edematous and not cyanotic. No clubbing. Vital Signs (last 8hr) Date Time Temp Pulse Resp B/P (MAP) Pulse Ox O2 Delivery O2 Flow Rate FiO2 09/01/25 05:30 72 16 98/55 (69) 95 09/01/25 05:15 76 22 95/53 (67) 96 09/01/25 05:00 69 20 123/62 (82) 97 21 09/01/25 04:45 71 21 106/52 (70) 96 09/01/25 04:30 68 22 103/60 (74) 95 09/01/25 04:15 69 23 106/59 (75) 96 09/01/25 04:00 96 Room Air* 0 21 09/01/25 04:00 98.1 64 17 102/55 (71) 96 21 09/01/25 04:00 98.1 Room Air 21 09/01/25 03:45 65 17 106/60 (75) 96 09/01/25 03:30 67 18 104/61 (75) 95 09/01/25 03:15 68 21 110/59 (76) 96 09/01/25 03:00 66 21 107/61 (76) 97 21 09/01/25 02:45 67 22 104/52 (69) 97 09/01/25 02:39 () 21 09/01/25 02:30 68 24 99/56 (70) 97 09/01/25 02:15 68 19 107/65 (79) 97 09/01/25 02:00 67 23 108/62 (77) 96 21 09/01/25 01:45 67 22 104/58 (73) 97 09/01/25 01:30 68 21 115/65 (82) 96 09/01/25 01:15 67 24 117/68 (84) 95 09/01/25 01:00 66 21 114/56 (75) 96 21 09/01/25 00:45 67 23 105/55 (72) 95 09/01/25 00:30 68 25 110/55 (73) 95 09/01/25 00:15 68 20 112/60 (77) 96 09/01/25 00:00 98.4 Room Air 21 09/01/25 00:00 99 Room Air* 0 21 09/01/25 00:00 98.4 67 21 118/66 (83) 96 21 08/31/25 23:45 68 24 121/63 (82) 96 08/31/25 23:30 69 24 125/64 (84) 95 08/31/25 23:15 71 19 118/65 (82) 97 08/31/25 23:00 64 23 116/67 (83) 95 21 08/31/25 22:45 62 21 117/62 (80) 96 08/31/25 22:30 64 23 125/70 (88) 96 LABS: Laboratory: Test 09/01/25 04:29 08/31/25 20:32 08/31/25 03:52 Range/Units White Blood Count 3.4 L 4.8-10.8 K/uL Red Blood Count 2.89 L 4.00-5.50 MIL/uL Hemoglobin 8.7 L 12.0-16.0 g/dL Hematocrit 27.0 L 36-48 % Mean Corpuscular Volume 93.4 79-99 fL Mean Corpuscular Hemoglobin 30.1 27.0-33.0 pg Mean Corpuscular Hemoglobin Concent 32.2 32.0-36.0 g/dL Red Cell Distribution Width 17.3 H 11.0-15.5 % Platelet Count 96 #L 130-400 K/uL Mean Platelet Volume 9.5 7.5-10.5 fL Nucleated Red Blood Cells 0.0 0.0-0.19 % Sodium Level 141 136-145 mmol/L Potassium Level 3.3 L 3.5-5.1 mmol/L Chloride Level 105 101-111 mmol/L Carbon Dioxide Level 29 21-32 mmol/L Blood Urea Nitrogen 14 7-18 mg/dL Creatinine 0.8 0.5-1.0 mg/dL Glomerular Filtration Rate Calc 86 >90 mL/min Random Glucose 157 H 70-105 mg/dL Total Calcium 7.4 L 8.5-10.1 mg/dL Phosphorus Level 2.0 L 2.5-4.9 mg/dL Magnesium Level 2.00 1.80-2.40 mg/dL Total Bilirubin 0.5 0.2-1.0 mg/dL Aspartate Amino Transf (AST/SGOT) 40 H 10-37 U/L Alanine Aminotransferase (ALT/SGPT) 19 12-78 U/L Alkaline Phosphatase 117 50-136 U/L Ammonia 51 H 11-32 umol/L Total Protein 5.4 L 6.0-8.3 g/dL Albumin 1.9 L 3.5-5.0 g/dL Whole Blood Glucose 106 70-110 MG/DL Immature Granulocyte % (Auto) 0.8 0-1 % Neutrophils (%) (Auto) 60.9 40.0-77.0 % Lymphocytes (%) (Auto) 23.1 21.0-51.0 % Monocytes (%) (Auto) 14.2 H 3.0-13.0 % Eosinophils (%) (Auto) 0.8 0.0-8.0 % Basophils (%) (Auto) 0.2 0.0-5.0 % Neutrophils # (Auto) 3.1 1.8-7.7 K/uL Lymphocytes # (Auto) 1.2 1.0-4.8 K/uL Monocytes # (Auto) 0.7 0.1-1.0 K/uL Eosinophils # (Auto) 0.04 0.00-0.70 K/uL Basophils # (Auto) 0.01 0.00-0.20 K/uL Absolute Immature Granulocyte (auto 0.04 0-1 K/uL Current Medications Medications (Trade) Dose Ordered Sig/Gregory Route PRN Reason Start Time Stop Time Status Last Admin Dose Admin Acetaminophen (TYLenol 325MG TAB) 650 mg Q6H PRN PO MILD PAIN (1-3) 08/29/25 10:00 09/28/25 09:59 Albuterol (DUOneb) 1 udvial Q6H PRN IH SHORTNESS OF BREATH 08/29/25 10:00 09/28/25 09:59 Calcium Gluconate (Calcium Gluc 1gm Vial) 1 gm ONCE IV 08/29/25 09:30 08/29/25 09:23 DC Dextrose (D50w) 50 ml AD PRN IV HYPOGLYCEMIA PROTOCOL 08/29/25 10:00 09/28/25 09:59 Dextrose/Sodium Chloride 1,000 ml @ 0 mls/hr AD IV 08/29/25 12:30 08/29/25 16:05 DC Glucagon (Glucagon 1mg Kit) 1 mg AD PRN IM HYPOGLYCEMIA PROTOCOL 08/29/25 10:00 09/28/25 09:59 Insulin Human Regular (humuLIN R 100 UNIT/ML 3ML) 5 unit ONCE IV 08/29/25 09:30 08/29/25 09:25 DC Insulin Human Regular (humuLIN R 100 UNIT/ML 3ML) INSULIN SLIDING SCAL... ACHS SQ 08/29/25 11:30 09/28/25 11:29 08/30/25 09:52 4 UNIT Insulin Human Regular 100 unit/ Sodium Chloride 101 ml @ 0 mls/hr PROTOCOL IV 08/29/25 12:30 08/29/25 16:05 DC Magnesium Sulfate 50 ml @ 0 mls/hr PROTOCOL IV 08/29/25 12:30 08/29/25 16:05 DC Magnesium Sulfate 50 ml @ 0 mls/hr PROTOCOL IV 08/30/25 10:00 09/29/25 09:59 08/31/25 21:26 25 MLS/HR Meropenem (Merrem 500mg) 500 mg Q24H IVPB 08/29/25 10:00 08/31/25 09:59 DC 08/30/25 09:46 500 MG Meropenem (Merrem 500mg) 500 mg Q24H IVPB 08/31/25 23:30 09/10/25 23:29 08/31/25 23:33 500 MG Midodrine (PROAMatine 5 MG TABLET) 10 mg BID PO 09/01/25 09:00 08/31/25 18:36 DC Midodrine (PROAMatine 5 MG TABLET) 10 mg TID PO 09/01/25 09:00 10/01/25 08:59 Morphine Sulfate (morPHINE 2MG SYG) 2 mg Q4H PRN IVP SEVERE PAIN (7-10) 09/01/25 05:30 09/08/25 05:29 09/01/25 05:25 2 MG Norepinephrine Bitartrate 32 mg/ Sodium Chloride 250 ml @ 0 mls/hr Q0M STAT IV 08/29/25 21:01 08/29/25 21:07 DC 08/29/25 21:13 0 MLS/HR Octreotide Acetate 1250 mcg/ Sodium Chloride 250 ml @ 0 mls/hr PROTOCOL IV 08/29/25 08:30 09/28/25 08:29 08/31/25 10:18 5 MLS/HR Ondansetron HCl (zoFRAN 4MG INJ) 4 mg Q6H PRN IVP NAUSEA/VOMITING 08/29/25 09:30 09/28/25 09:29 Pantoprazole Sodium 80 mg/ Sodium Chloride 100 ml @ 10 mls/hr Q10H IV 08/29/25 08:30 09/28/25 08:29 09/01/25 05:50 10 MLS/HR Pharmacy Profile Note (Pharmacy Communication) 1 each ONCE MISC 08/29/25 09:30 08/29/25 09:35 DC Pharmacy Profile Note (Pharmacy Communication) 1 each ONCE MISC 08/31/25 23:30 08/31/25 23:17 DC Potassium Chloride 100 ml @ 50 mls/hr AD PRN IV POTASSIUM PROTOCOL 08/29/25 12:30 09/28/25 12:29 09/01/25 05:04 50 MLS/HR Sodium Bicarbonate 150 meq/Dextrose 1,150 ml @ 125 mls/hr Q9H12M IVP 08/29/25 10:00 08/30/25 10:12 DC 08/30/25 08:07 125 MLS/HR Sodium Chloride 250 ml @ 0 mls/hr AD IV 08/29/25 17:30 09/28/25 17:29 Sodium Chloride 1,000 ml @ 0 mls/hr Q0M IV 08/29/25 16:00 08/29/25 16:03 DC Sodium Chloride 1,000 ml @ 0 mls/hr Q0M IV 08/29/25 16:00 09/28/25 15:59 08/29/25 16:10 500 MLS/HR Sodium Chloride 1,000 ml @ 125 mls/hr Q8H IV 08/29/25 09:30 08/29/25 09:57 DC Sodium Chloride 1,000 ml @ 150 mls/hr Q6H40M IV 08/29/25 18:30 09/28/25 18:29 08/31/25 16:16 150 MLS/HR Sodium Chloride 1,000 ml @ 200 mls/hr PROTOCOL IV 08/29/25 12:30 08/29/25 16:05 DC Sodium Chloride 1,000 ml @ 999 mls/hr Q1H1M IV 08/29/25 09:30 08/29/25 09:06 DC Thiamine HCl (Vitamin B-1) 200 mg Q12H IVP 08/29/25 09:30 09/02/25 09:30 08/31/25 20:46 200 MG DIAGNOSTICS / RADIOLOGY: [ ] ASSESSMENT: Hypovolemic hypochloremic hyponatremia, POA, Improving Hemorrhagic shock - requiring vasopressor support, Improving Acute upper GI bleeding- Hematemesis, dark output from ileostomy bag, POA, Improving Severe hyperkalemia, POA, Resolved Hypokalemia, Not POA Hypophosphatemia, Not POA High anion gap metabolic acidosis, POA, Resolved Hyperammonemia, POA, Improving Lactic acidosis, POA, Resolved Hyperphosphatemia, POA, Resolved Acute renal failure - Prerenal Acute Kidney Injury, POA, Improving Starvation Ketoacidosis, POA Rule out occult sepsis, POA Recent extended hospitalization in [facility], 07/20/2025- 08/25/2025 for sepsis, acute abdomen, POA Severe Dehydration, POA, Improving History of esophageal varices, POA Decompensated liver cirrhosis, POA Hx of acute cholecystitis, s/p cholecystostomy tube placement on 08/02/2025. Perisplenic abscess, s/p CT-guided drainage placement on 08/09/2025. 2.7 x 2.2 x 5.1 cm infrasplenic collection History of gastritis, POA Hx of Generalized peritonitis with ESBL E coli infection, POA Moderate Protein calorie malnutrition POA History of bilious peritonitis with small colonic anastomosis perforation s/p diagnostic laparoscopy, abdominal washout, ileostomy creation by Dr. Gann, 07/21/2025 Hx of DM II, POA Recent colovesical fistula repair with sigmoid colon resection and anastomosis on PLAN: High anion gap metabolic acidosis, Hypovolemic hypochloremic hyponatremia, Severe hyperkalemia, Hyperphosphatemia - On presentation, patient's potassium was 6.8. While Phosphate 7.0. Sodium 119, chloride 87, carbon dioxide 13, consistent with high anion gap metabolic acidosis - EKG was done which showed Sinus rhythm. She received calcium gluconate as well as insulin for hyperkalemia. She also underwent emergent HD. Her potassium improved to 3.5 subsequently. Her sodium also improved to 134, chloride 96, CO2 31 (08/30). - Patient was started on sodium bicarbonate because of acidosis and bicarb deficit. Her BMP Bicarb today is 32. Bicarb drip has been discontinued as per nephrology. - Patient is receiving sodium chloride 150 mls/hr. - Total output in past 24 hours is 2070 vs 3950 input. - Monitor input and output as well as daily weights. - We will follow up with nephrology recommendations and repeat CMP, CBC and related labs in the morning. Hemorrhagic shock, Acute upper GI bleeding- Hematemesis, dark output from ileo stomy bag - Patient is maintained on Levophed drip 0.1. It is being weaned off. - She is receiving NaCl 150mls/hr - We have placed GI consult. Patient will undergo Upper endoscopy as per consult after her condition becomes stable. - She continues on Sandostatin and Protonix drip. - Trend hemoglobin and keep it above 7. Patient's hemoglobin 9.9 (08/30) - Keep map above 65. - The patient is currently NPO. Lactic acidosis, starvation acidosis, Suspected occult sepsis. - WBCs are 5.1 (08/31). - We will follow with blood culture and urine culture. - Merrem has reached its stop date. We will follow up with Infectious Disease recommendations. - Patient is currently receiving sodium chloride 150mls/hr. Acute renal failure, Prerenal Acute Kidney Injury, Dehydration - On Presentation, patient's creatinine was 5, BUN 80. - FENa <0.2, Stone <20 - Urine microscopy showed Hyaline and granular casts - Continue NaCl 150mls/hr. - Bicarb drip has been discontinued as per nephrology. - Wean off levophed (currently 0.1) while maintaining MAP>65 - Patient received emergent hemodialysis session for elevated renal parameters as well as electrolyte derangements including Hyperkalemia and acidosis. - Her creatinine and BUN have improved to 1.0 and 16 respectively (08/31) - Transfuse as needed to keep Hb above 7 (Hb=9.0, 08/31/25) - Monitor input and output. Patient's total output in the past24 hours is 2070, versus 3950 input. One point - We will repeat a.m. labs and follow up with Nephrology recommendations. Hyperammonemia - Ammonia, on presentation, was 65. Patient was given lactulose. - On 08/31, ammonia has decreased to 34. - Follow up with morning ammonia levels. Hypokalemia, Hypophosphatemia - Patient's potassium dropped to 2.9 and phosphate 1.8 today. 08/31/2025 - Patient is started on potassium phosphate IV. - We will follow up with Nephrology recommendation and repeat labs in the morning. SONJA PERALTA MD Sep 01, 2025 06:24
--- NOTE | 2025-09-01 09:47 | NUR ---
to EGD at this time
--- NOTE | 2025-09-01 10:00 | PN ---
GENERAL SURGERY PROGRESS NOTE Date/Time Patient Seen: 09/01/25 0940 Problem List: hospital day 4 s/p readmission for ARF, GI Bleed Interval History: patient off pressors says she is feeling better than on saturday She is being taking down to GI for EGD now Current Medications Medications (Trade) Dose Ordered Sig/Gregory Route Start Time Stop Time Status Last Admin Dose Admin Calcium Gluconate (Calcium Gluc 1gm Vial) 1 gm ONCE IV 08/29/25 09:30 08/29/25 09:23 DC Dextrose/Sodium Chloride 1,000 ml @ 0 mls/hr AD IV 08/29/25 12:30 08/29/25 16:05 DC Insulin Human Regular (humuLIN R 100 UNIT/ML 3ML) 5 unit ONCE IV 08/29/25 09:30 08/29/25 09:25 DC Insulin Human Regular (humuLIN R 100 UNIT/ML 3ML) INSULIN SLIDING SCAL... ACHS SQ 08/29/25 11:30 09/28/25 11:29 08/30/25 09:52 4 UNIT Insulin Human Regular 100 unit/ Sodium Chloride 101 ml @ 0 mls/hr PROTOCOL IV 08/29/25 12:30 08/29/25 16:05 DC Magnesium Sulfate 50 ml @ 0 mls/hr PROTOCOL IV 08/29/25 12:30 08/29/25 16:05 DC Magnesium Sulfate 50 ml @ 0 mls/hr PROTOCOL IV 08/30/25 10:00 09/29/25 09:59 08/31/25 21:26 25 MLS/HR Meropenem (Merrem 500mg) 500 mg Q24H IVPB 08/29/25 10:00 08/31/25 09:59 DC 08/30/25 09:46 500 MG Meropenem (Merrem 500mg) 500 mg Q24H IVPB 08/31/25 23:30 09/10/25 23:29 08/31/25 23:33 500 MG Midodrine (PROAMatine 5 MG TABLET) 10 mg BID PO 09/01/25 09:00 08/31/25 18:36 DC Midodrine (PROAMatine 5 MG TABLET) 10 mg TID PO 09/01/25 09:00 10/01/25 08:59 Norepinephrine Bitartrate 32 mg/ Sodium Chloride 250 ml @ 0 mls/hr Q0M STAT IV 08/29/25 21:01 08/29/25 21:07 DC 08/29/25 21:13 0 MLS/HR Octreotide Acetate 1250 mcg/ Sodium Chloride 250 ml @ 0 mls/hr PROTOCOL IV 08/29/25 08:30 09/28/25 08:29 08/31/25 10:18 5 MLS/HR Pantoprazole Sodium 80 mg/ Sodium Chloride 100 ml @ 10 mls/hr Q10H IV 08/29/25 08:30 09/28/25 08:29 09/01/25 05:50 10 MLS/HR Pharmacy Profile Note (Pharmacy Communication) 1 each ONCE MISC 08/29/25 09:30 08/29/25 09:35 DC Pharmacy Profile Note (Pharmacy Communication) 1 each ONCE MISC 08/31/25 23:30 08/31/25 23:17 DC Sodium Bicarbonate 150 meq/Dextrose 1,150 ml @ 125 mls/hr Q9H12M IVP 08/29/25 10:00 08/30/25 10:12 DC 08/30/25 08:07 125 MLS/HR Sodium Chloride 250 ml @ 0 mls/hr AD IV 08/29/25 17:30 09/28/25 17:29 Sodium Chloride 1,000 ml @ 0 mls/hr Q0M IV 08/29/25 16:00 08/29/25 16:03 DC Sodium Chloride 1,000 ml @ 0 mls/hr Q0M IV 08/29/25 16:00 09/01/25 08:01 DC 08/29/25 16:10 500 MLS/HR Sodium Chloride 1,000 ml @ 125 mls/hr Q8H IV 08/29/25 09:30 08/29/25 09:57 DC Sodium Chloride 1,000 ml @ 150 mls/hr Q6H40M IV 08/29/25 18:30 09/01/25 09:29 DC 08/31/25 16:16 150 MLS/HR Sodium Chloride 1,000 ml @ 200 mls/hr PROTOCOL IV 08/29/25 12:30 08/29/25 16:05 DC Sodium Chloride 1,000 ml @ 999 mls/hr Q1H1M IV 08/29/25 09:30 08/29/25 09:06 DC Thiamine HCl (Vitamin B-1) 200 mg Q12H IVP 08/29/25 09:30 09/02/25 09:30 09/01/25 08:37 200 MG Physical Examination: GENERAL: [No acute distress. smiling and laughing.] HEAD: [Normal with no signs of head trauma.] EYES: [PERRLA, EOMI, conjunctiva and sclera normal.] ENT: [Hearing grossly intact, normal oropharynx.] NECK: [Supple without JVD. There is no tenderness, lymphadenopathy, or masses. No thyromegaly. Normal carotid upstrokes without bruits.] LUNGS: [Clear breath sounds bilaterally. There are right basilar rales one third of the way up the chest. No wheezes, or rhonchi.] HEART: [Normal rate and rhythm. Normal S1 and S2 without mumurs, gallop or rub.] VASC: [Peripheral pulses +2 bilaterally.] ABD: [Bowel sounds normal, soft, mild diffuse tenderness (improved since Saturday, ileostomy with enteric contents (not tarry/coffee colored), no masses, no organomegaly. No audible bruits.] : [Not examined] LYMPH: [No lymphadenopathy noted.] EXT: [No clubbing, cyanosis or edema.] SKIN: [No rashes or lesions noted; her coloring looks better today.] NEURO: [Awake, alert, and oriented x3. No focal sensory or strength deficits noted.] Vital Signs (last 8hr) Date Time Temp Pulse Resp B/P (MAP) Pulse Ox O2 Delivery O2 Flow Rate FiO2 09/01/25 09:30 70 19 104/53 (70) 98 09/01/25 09:00 77 14 101/55 (70) 95 09/01/25 08:30 78 14 114/62 (79) 98 09/01/25 08:15 69 14 109/58 (75) 95 09/01/25 08:00 98.4 72 19 96/54 95 Room Air 21 09/01/25 08:00 95 Room Air* 0 21 09/01/25 08:00 72 18 115/69 (84) 96 09/01/25 07:45 72 14 115/69 (84) 96 09/01/25 07:30 71 18 114/61 (78) 97 09/01/25 07:22 68 18 N/A Room Air 21 09/01/25 07:15 71 19 104/64 (77) 98 09/01/25 07:00 68 16 98/56 (70) 96 21 09/01/25 06:45 73 21 96/54 (68) 96 09/01/25 06:30 67 20 101/53 (69) 98 09/01/25 06:15 70 28 105/57 (73) 97 09/01/25 06:00 74 19 95/57 (70) 95 21 09/01/25 05:45 70 22 104/61 (75) 96 09/01/25 05:30 72 16 98/55 (69) 95 09/01/25 05:15 76 22 95/53 (67) 96 09/01/25 05:00 69 20 123/62 (82) 97 21 09/01/25 04:45 71 21 106/52 (70) 96 09/01/25 04:30 68 22 103/60 (74) 95 09/01/25 04:15 69 23 106/59 (75) 96 09/01/25 04:00 96 Room Air* 0 21 09/01/25 04:00 98.1 64 17 102/55 (71) 96 21 09/01/25 04:00 98.1 Room Air 21 09/01/25 03:45 65 17 106/60 (75) 96 09/01/25 03:30 67 18 104/61 (75) 95 09/01/25 03:15 68 21 110/59 (76) 96 09/01/25 03:00 66 21 107/61 (76) 97 21 09/01/25 02:45 67 22 104/52 (69) 97 09/01/25 02:39 () 21 09/01/25 02:30 68 24 99/56 (70) 97 09/01/25 02:15 68 19 107/65 (79) 97 09/01/25 02:00 67 23 108/62 (77) 96 21 Laboratory: [ ] Hematology Labs: Test 09/01/25 04:29 08/31/25 03:52 Range/Units White Blood Count 3.4 L 4.8-10.8 K/uL Red Blood Count 2.89 L 4.00-5.50 MIL/uL Hemoglobin 8.7 L 12.0-16.0 g/dL Hematocrit 27.0 L 36-48 % Mean Corpuscular Volume 93.4 79-99 fL Mean Corpuscular Hemoglobin 30.1 27.0-33.0 pg Mean Corpuscular Hemoglobin Concent 32.2 32.0-36.0 g/dL Red Cell Distribution Width 17.3 H 11.0-15.5 % Platelet Count 96 #L 130-400 K/uL Mean Platelet Volume 9.5 7.5-10.5 fL Nucleated Red Blood Cells 0.0 0.0-0.19 % Immature Granulocyte % (Auto) 0.8 0-1 % Neutrophils (%) (Auto) 60.9 40.0-77.0 % Lymphocytes (%) (Auto) 23.1 21.0-51.0 % Monocytes (%) (Auto) 14.2 H 3.0-13.0 % Eosinophils (%) (Auto) 0.8 0.0-8.0 % Basophils (%) (Auto) 0.2 0.0-5.0 % Neutrophils # (Auto) 3.1 1.8-7.7 K/uL Lymphocytes # (Auto) 1.2 1.0-4.8 K/uL Monocytes # (Auto) 0.7 0.1-1.0 K/uL Eosinophils # (Auto) 0.04 0.00-0.70 K/uL Basophils # (Auto) 0.01 0.00-0.20 K/uL Absolute Immature Granulocyte (auto 0.04 0-1 K/uL Chemistry Labs: Test 09/01/25 04:29 08/31/25 20:32 Range/Units Sodium Level 141 136-145 mmol/L Potassium Level 3.3 L 3.5-5.1 mmol/L Chloride Level 105 101-111 mmol/L Carbon Dioxide Level 29 21-32 mmol/L Blood Urea Nitrogen 14 7-18 mg/dL Creatinine 0.8 0.5-1.0 mg/dL Glomerular Filtration Rate Calc 86 >90 mL/min Random Glucose 157 H 70-105 mg/dL Total Calcium 7.4 L 8.5-10.1 mg/dL Phosphorus Level 2.0 L 2.5-4.9 mg/dL Magnesium Level 2.00 1.80-2.40 mg/dL Total Bilirubin 0.5 0.2-1.0 mg/dL Aspartate Amino Transf (AST/SGOT) 40 H 10-37 U/L Alanine Aminotransferase (ALT/SGPT) 19 12-78 U/L Alkaline Phosphatase 117 50-136 U/L Ammonia 51 H 11-32 umol/L Total Protein 5.4 L 6.0-8.3 g/dL Albumin 1.9 L 3.5-5.0 g/dL Whole Blood Glucose 106 70-110 MG/DL Diagnostics / Radiology: [Copy/Paste Echos/Imaging Report here] Impression and Plan: 55 y/o female s/p 6 weeks diagnostic laparoscopy and ileostomy for postop leak with readmission for ARF/GI Bleed looking better clinically EGD today per ZONIA DENGNOVEMBER Roel CERVANTES Sep 01, 2025 10:00
--- NOTE | 2025-09-01 10:15 | NUR ---
BACK FROM EGD. PATIENT REPORT GIVEN TO TAMMY SECURITY SOFTWARE ENGINEER WITH GI, AND LOBO RICKS SECURITY SOFTWARE ENGINEER WITH CRITICAL CARE
--- NOTE | 2025-09-01 11:55 | PN ---
GASTROENTEROLOGY PROGRESS NOTE Date of Visit: Sep 01, 2025 Time of Visit: 11:53 Events / Notes: [08/31/25: No acute events overnight. Patient's BP is are holding with some BP is at 90s/50s lowest BP of 80/48.. Remains afebrile. Patient has had a total of 540 mL of ileostomy output, 25 mL of drain output. WBC of 5.1, hemoglobin 9.0, platelets 130. Potassium 2.9, glucose 140, calcium 7.4, phosphorus 1.8, AST 46, alkaline phosphatase 138. Ammonia 34, total protein 5.7, albumin 2.1. Hepatitis profile negative. Patient off pressors at 1805. Will be started on midodrine. Patient awake, alert, and oriented in no acute distress. Daughter at bedside. Informed possible EGD evaluation in am if patient is able to be off pressors. They agreed. 09/01/25: Patient underwent EGD and was found to have small esophageal varices, scar in the lower 3rd of the esophagus, and portal hypertensive gastropathy. Normal examined duodenum.] Review of Systems: CONSTITUTIONAL: No malaise or change in sensation of wellbeing. ENMT: No rhinorrhea, otorrhea, sinus pain, ear ache. CARDIOVASCULAR: No angina, palpitations, orthopnea or paroxysmal dyspnea. RESPIRATORY: No SOB. GASTROINTESTINAL: No abdominal pain, nausea, vomiting, diarrhea, hematemesis, melena or change in the patient's habitual bowel movements consistency/number. GENITOURINARY: No dysuria, hematuria or change in bladder continence. MUSCULOSKELETAL: No new muscle pain or decrease in muscular strength. No new joint swelling, redness or tenderness. SKIN: No new rash. Physical Exam: GEN: Awake, alert, oriented in person, time and place, and in no acute distress. HEENT: No rhinorrhea. Oral mucosa is moist. CHEST: Lung auscultation revealed normal breath sounds bilaterally. CARDIAC:Heart sounds are regular. ABD: Soft, non-tender and not distended. No peritoneal signs on palpation. Normal bowel sounds. Ileostomy in place with watery output. Last bm: 08/30/25 EXT: No cyanosis or clubbing. No edema. SKIN: Intact. No rashes. NEURO: Alert and oriented to name, place and person.No focal motor deficits. Normal speech. Vital Signs (last 8hr) Date Time Temp Pulse Resp B/P (MAP) Pulse Ox O2 Delivery O2 Flow Rate FiO2 09/01/25 11:15 67 16 111/70 (84) 98 09/01/25 11:00 70 13 104/54 (71) 98 09/01/25 10:45 70 15 126/58 (80) 98 09/01/25 10:30 67 17 111/62 (78) 98 09/01/25 10:15 64 18 108/67 (81) 100 09/01/25 09:30 70 19 104/53 (70) 98 09/01/25 09:00 77 14 101/55 (70) 95 09/01/25 08:30 78 14 114/62 (79) 98 09/01/25 08:15 69 14 109/58 (75) 95 09/01/25 08:00 98.4 72 19 96/54 95 Room Air 21 09/01/25 08:00 95 Room Air* 0 21 09/01/25 08:00 72 18 115/69 (84) 96 09/01/25 07:45 72 14 115/69 (84) 96 09/01/25 07:30 71 18 114/61 (78) 97 09/01/25 07:22 68 18 N/A Room Air 21 09/01/25 07:15 71 19 104/64 (77) 98 09/01/25 07:00 68 16 98/56 (70) 96 21 09/01/25 06:45 73 21 96/54 (68) 96 09/01/25 06:30 67 20 101/53 (69) 98 09/01/25 06:15 70 28 105/57 (73) 97 09/01/25 06:00 74 19 95/57 (70) 95 21 09/01/25 05:45 70 22 104/61 (75) 96 09/01/25 05:30 72 16 98/55 (69) 95 09/01/25 05:15 76 22 95/53 (67) 96 09/01/25 05:00 69 20 123/62 (82) 97 21 09/01/25 04:45 71 21 106/52 (70) 96 09/01/25 04:30 68 22 103/60 (74) 95 09/01/25 04:15 69 23 106/59 (75) 96 09/01/25 04:00 96 Room Air* 0 21 09/01/25 04:00 98.1 64 17 102/55 (71) 96 21 09/01/25 04:00 98.1 Room Air 21 Laboratory: [ ] Laboratory: Test 09/01/25 11:15 09/01/25 04:29 08/31/25 03:52 Range/Units Whole Blood Glucose 123 H 70-110 MG/DL White Blood Count 3.4 L 4.8-10.8 K/uL Red Blood Count 2.89 L 4.00-5.50 MIL/uL Hemoglobin 8.7 L 12.0-16.0 g/dL Hematocrit 27.0 L 36-48 % Mean Corpuscular Volume 93.4 79-99 fL Mean Corpuscular Hemoglobin 30.1 27.0-33.0 pg Mean Corpuscular Hemoglobin Concent 32.2 32.0-36.0 g/dL Red Cell Distribution Width 17.3 H 11.0-15.5 % Platelet Count 96 #L 130-400 K/uL Mean Platelet Volume 9.5 7.5-10.5 fL Nucleated Red Blood Cells 0.0 0.0-0.19 % Sodium Level 141 136-145 mmol/L Potassium Level 3.3 L 3.5-5.1 mmol/L Chloride Level 105 101-111 mmol/L Carbon Dioxide Level 29 21-32 mmol/L Blood Urea Nitrogen 14 7-18 mg/dL Creatinine 0.8 0.5-1.0 mg/dL Glomerular Filtration Rate Calc 86 >90 mL/min Random Glucose 157 H 70-105 mg/dL Total Calcium 7.4 L 8.5-10.1 mg/dL Phosphorus Level 2.0 L 2.5-4.9 mg/dL Magnesium Level 2.00 1.80-2.40 mg/dL Total Bilirubin 0.5 0.2-1.0 mg/dL Aspartate Amino Transf (AST/SGOT) 40 H 10-37 U/L Alanine Aminotransferase (ALT/SGPT) 19 12-78 U/L Alkaline Phosphatase 117 50-136 U/L Ammonia 51 H 11-32 umol/L Total Protein 5.4 L 6.0-8.3 g/dL Albumin 1.9 L 3.5-5.0 g/dL Immature Granulocyte % (Auto) 0.8 0-1 % Neutrophils (%) (Auto) 60.9 40.0-77.0 % Lymphocytes (%) (Auto) 23.1 21.0-51.0 % Monocytes (%) (Auto) 14.2 H 3.0-13.0 % Eosinophils (%) (Auto) 0.8 0.0-8.0 % Basophils (%) (Auto) 0.2 0.0-5.0 % Neutrophils # (Auto) 3.1 1.8-7.7 K/uL Lymphocytes # (Auto) 1.2 1.0-4.8 K/uL Monocytes # (Auto) 0.7 0.1-1.0 K/uL Eosinophils # (Auto) 0.04 0.00-0.70 K/uL Basophils # (Auto) 0.01 0.00-0.20 K/uL Absolute Immature Granulocyte (auto 0.04 0-1 K/uL Current Medications Medications (Trade) Dose Ordered Sig/Gregory Route PRN Reason Start Time Stop Time Status Last Admin Dose Admin Acetaminophen (TYLenol 325MG TAB) 650 mg Q6H PRN PO MILD PAIN (1-3) 08/29/25 10:00 09/28/25 09:59 Albuterol (DUOneb) 1 udvial Q6H PRN IH SHORTNESS OF BREATH 08/29/25 10:00 09/28/25 09:59 Calcium Gluconate (Calcium Gluc 1gm Vial) 1 gm ONCE IV 08/29/25 09:30 08/29/25 09:23 DC Dextrose (D50w) 50 ml AD PRN IV HYPOGLYCEMIA PROTOCOL 08/29/25 10:00 09/28/25 09:59 Dextrose/Sodium Chloride 1,000 ml @ 0 mls/hr AD IV 08/29/25 12:30 08/29/25 16:05 DC Glucagon (Glucagon 1mg Kit) 1 mg AD PRN IM HYPOGLYCEMIA PROTOCOL 08/29/25 10:00 09/28/25 09:59 Insulin Human Regular (humuLIN R 100 UNIT/ML 3ML) 5 unit ONCE IV 08/29/25 09:30 08/29/25 09:25 DC Insulin Human Regular (humuLIN R 100 UNIT/ML 3ML) INSULIN SLIDING SCAL... ACHS SQ 08/29/25 11:30 09/28/25 11:29 08/30/25 09:52 4 UNIT Insulin Human Regular 100 unit/ Sodium Chloride 101 ml @ 0 mls/hr PROTOCOL IV 08/29/25 12:30 08/29/25 16:05 DC Lactulose (Constulose 20gm/ 30ml Udcup) 20 gm TID PO 09/01/25 14:00 10/01/25 13:59 Magnesium Sulfate 50 ml @ 0 mls/hr PROTOCOL IV 08/29/25 12:30 08/29/25 16:05 DC Magnesium Sulfate 50 ml @ 0 mls/hr PROTOCOL IV 08/30/25 10:00 09/29/25 09:59 08/31/25 21:26 25 MLS/HR Meropenem (Merrem 500mg) 500 mg Q24H IVPB 08/29/25 10:00 08/31/25 09:59 DC 08/30/25 09:46 500 MG Meropenem (Merrem 500mg) 500 mg Q24H IVPB 08/31/25 23:30 09/10/25 23:29 08/31/25 23:33 500 MG Midodrine (PROAMatine 5 MG TABLET) 10 mg BID PO 09/01/25 09:00 08/31/25 18:36 DC Midodrine (PROAMatine 5 MG TABLET) 10 mg TID PO 09/01/25 09:00 10/01/25 08:59 Morphine Sulfate (morPHINE 2MG SYG) 2 mg Q4H PRN IVP SEVERE PAIN (7-10) 09/01/25 05:30 09/08/25 05:29 09/01/25 05:25 2 MG Norepinephrine Bitartrate 32 mg/ Sodium Chloride 250 ml @ 0 mls/hr Q0M STAT IV 08/29/25 21:01 08/29/25 21:07 DC 08/29/25 21:13 0 MLS/HR Octreotide Acetate 1250 mcg/ Sodium Chloride 250 ml @ 0 mls/hr PROTOCOL IV 08/29/25 08:30 09/01/25 10:32 DC 08/31/25 10:18 5 MLS/HR Ondansetron HCl (zoFRAN 4MG INJ) 4 mg Q6H PRN IVP NAUSEA/VOMITING 08/29/25 09:30 09/28/25 09:29 Pantoprazole Sodium (PROTonix 40MG INJ) 40 mg BID IVP 09/01/25 21:00 10/01/25 20:59 Pantoprazole Sodium 80 mg/ Sodium Chloride 100 ml @ 10 mls/hr Q10H IV 08/29/25 08:30 09/01/25 10:32 DC 09/01/25 05:50 10 MLS/HR Pharmacy Profile Note (Pharmacy Communication) 1 each ONCE MISC 08/29/25 09:30 08/29/25 09:35 DC Pharmacy Profile Note (Pharmacy Communication) 1 each ONCE MISC 08/31/25 23:30 08/31/25 23:17 DC Potassium Chloride 100 ml @ 50 mls/hr AD PRN IV POTASSIUM PROTOCOL 08/29/25 12:30 09/28/25 12:29 09/01/25 07:43 50 MLS/HR Sodium Bicarbonate 150 meq/Dextrose 1,150 ml @ 125 mls/hr Q9H12M IVP 08/29/25 10:00 08/30/25 10:12 DC 08/30/25 08:07 125 MLS/HR Sodium Chloride 250 ml @ 0 mls/hr AD IV 08/29/25 17:30 09/28/25 17:29 Sodium Chloride 1,000 ml @ 0 mls/hr Q0M IV 08/29/25 16:00 08/29/25 16:03 DC Sodium Chloride 1,000 ml @ 0 mls/hr Q0M IV 08/29/25 16:00 09/01/25 08:01 DC 08/29/25 16:10 500 MLS/HR Sodium Chloride 1,000 ml @ 125 mls/hr Q8H IV 08/29/25 09:30 08/29/25 09:57 DC Sodium Chloride 1,000 ml @ 150 mls/hr Q6H40M IV 08/29/25 18:30 09/01/25 09:29 DC 08/31/25 16:16 150 MLS/HR Sodium Chloride 1,000 ml @ 200 mls/hr PROTOCOL IV 08/29/25 12:30 08/29/25 16:05 DC Sodium Chloride 1,000 ml @ 999 mls/hr Q1H1M IV 08/29/25 09:30 08/29/25 09:06 DC Thiamine HCl (Vitamin B-1) 200 mg Q12H IVP 08/29/25 09:30 09/02/25 09:30 09/01/25 08:37 200 MG Diagnostics / Radiology: [COPY/PASTE HERE IF NO REPORTS PLEASE DELETE SECTION] Assessment: [Concern for GI bleed anemia Liver cirrhosis Ileostomy status Hypertension Type 2 diabetes ] Plan: [ Case discussed with Dr. Adams. Pantoprazole 40mg IV bid x 24 hours then pantoprazole 40mg po daily Clear fluids, if tolerating may advance to full liquids, and then soft bland diet. Please call with questions, concerns, and change in clinical status and any signs of any overt GI bleed Thank you for this consult. NIKKI MUNOZ DIRECTOR OF OPERATIONS FOR THERAPY Sep 01, 2025 11:55
--- NOTE | 2025-09-01 12:05 | NUR ---
IR NOTIFIED OF PROCEDURE REQUEST. SCHEDULING CONTACTED.
[2025-09-01 13:00] LABS: NUCLEATED RED BLOOD CELLS 0.0 % (0.0-0.19); PLATELET COUNT (AUTO) 84.0 K/uL (130-400); RED BLOOD CELL COUNT(AUTO) 2.99 MIL/uL (4.00-5.50); RED CELL DISTRIBUTION WIDTH 17.2 % (11.0-15.5); WHITE BLOOD COUNT (AUTO) 3.5 K/uL (4.8-10.8)
[2025-09-01 13:13] LABS: PHOSPHORUS 1.6 mg/dL (2.5-4.9)
[2025-09-01] MEDS: LACTULOSE 20 GM/30 ML UDCUP PO SCH (13:43)
--- NOTE | 2025-09-01 14:20 | HMCIMG ---
EXAM: CR Chest, 1 View (Portable, Supine). CLINICAL HISTORY: Chest pain. COMPARISON: CR Chest, 2 View ??? 08/31/2025 01:13 AM EDT. FINDINGS: LUNGS: Mild prominence of bronchovascular markings in bilateral lower zone. Area of haziness in left lower zone. Lungs are clear. No focal consolidation, pulmonary edema, or acute infiltrate. PLEURAL SPACES: No pleural effusion or pneumothorax. MEDIASTINUM: Cardiac size and mediastinal contours within normal limits. Right internal jugular central venous catheter remains in similar position with the tip projecting over the distal superior vena cava, unchanged from prior. BONES: No acute osseous abnormality. LINES/DEVICES: Right IJ central venous catheter as described. Monitoring leads noted. No new devices identified. IMPRESSION: * Stable position of right IJ central venous catheter with tip at distal SVC. * Area of haziness in left lower zone likely airspace opacity-New finding compared to previous radiograph. * Mild prominence of bronchovascular markings in bilateral lower zone-New finding compared to previous radiograph. Signed By: EDWIGE LEDESMA M.D. /[place]
--- NOTE | 2025-09-01 16:14 | NUR ---
RE: DRAINAGE CATHETER EVALUATION FOR POSSIBLE REMOVAL BY IR CT ABDOMEN W/O CONTRAST DONE AND REVIEWED BY DR Marina FIORE. LUQ CATHETER IN PLACE WITH FLUID COLLECTION STILL PRESENT. RUQ CATHETER IN PLACE IN GALLBLADDER WITH NO FLUID PRESENT. ORDERS GIVEN BY DR Marina FIORE TO FLUSH LUQ CATHETER DAILY WITH 10ML NORMAL SALINE. RUQ CATHETER APPROVED FOR REMOVAL. DR Danny JHAVERI NOTIFIED ABOUT THE RESULTS OF THE CT STUDY AND ORDERED FOR THE RUQ CATHETER TO BE REMOVED. RUQ CATHETER REMOVED WITH STERILE TECHNIQUE AT BEDSIDE AND PATIENT TOLERATED PROCEDURE WELL. DRESSING APPLIED WITH NO BLEEDING NOTED. REPORT GIVEN TO BECKY TAFOYA.
--- NOTE | 2025-09-01 16:27 | PN ---
[facility] PROGRESS NOTE Date of Service: Sep 01, 2025 Time of Service: 9:40 SUBJECTIVE: As per admission notes "50-year-old female with underlying history of type 2 diabetes mellitus, history of liver cirrhosis, prior history of esophageal varices requiring banding in May,, history of robotic sigmoid resection with takedown of colovesical fistula who was recently hospitalized in [facility] from 07/20/2025 - 08/25/2025 patient was found to have bilious peritonitis with 2 mm perforation of colonic anastomosis requiring diagnostic laparoscopy, abdominal washout and drain placement with creation of diverting loop ileostomy. Patient was hospitalized for about one month and subsequently required IR guided drain placement as well. She was just discharged from the hospital on 08/25/2025. Patient's daughter reports that patient was having nausea and vomiting with poor oral intake at home. She started to have coffee-ground emesis today and she also noticed some right streaks of blood with a coffee-ground emesis. Stool has also been dark in the ileostomy bag. Patient is having moderate intensity abdominal pain as well. She has not been taking any NSAIDs. Daughter reports that patient has been very weak since her discharge in very debilitated. Patient denies active chest pain. Denies active shortness of breath. On presentation to the hospital, patient was noted to be afebrile with T-max of 97.5 F, heart rate of 100, blood pressure of 127/91. [place] [address], hemoglobin of 16.4, platelet count of 383506. BMP was repeated twice, BMP showed sodium of 117, potassium 7.0, chloride of 88, CO2 of seven, BUN of 83, creatinine 5.0, blood glucose of 99, calcium 10.4. Blood gas showed pH of 7.28, bicarb of close to eight, CO2 of 18, lactic acid of three. Patient will be admitted to ICU. Patient is presenting with severe renal failure with hyperkalemia and severe metabolic acidosis. Patient also with concerns for upper GI bleeding with coffee-ground emesis. Patient remains critically ill consultation with Intensive Care, Nephrology, GI will be requested. We we will obtain a CT abdomen pelvis without contrast for further evaluation as well. Patient is critically ill. Plan of care was discussed with patient and daughter at bedside" 08/30/2025 Patient was seen and examined at bedside. Her blood pressure has been low, 88/54, heart rate 86. She is currently on Levophed 0.2 Mcg, octreotide, Protonix, sodium bicarbonate drip. She received 2nd hemodialysis session yesterday. As per Nephrology, she will continue to receive dialysis inpatient. Her high anion gap metabolic acidosis is improving with sodium 134, carbon dioxide 31, chloride 96. Her creatinine has trended down from 5-1.8. General surgery consult is on board and we will follow up with their recommendations. Additionally, in the light of history of liver cirrhosis with esophageal varices, her recent hematemesis will be evaluated with GI consult and possible endoscopy. We discussed this with the patient and her family members present besides. Patient is started on Merrem and blood culture, urine cultures show no growth so far. Her lactic acid has trended down from 3.1 to 2.1. 08/31/2025 Patient was seen and examined at bedside in room 214. She continues to be on Levophed 0.1 which is being weaned off. She is also on Sandostatin and Protonix drip. Patient complained of mild pain along the sides of her drain but denied any nausea or episode of vomiting since Saturday. Minimal drainage was noted. Sodium bicarb was discontinued as per Nephrology. Her lab markers have improved with sodium 141, chloride 104, bicarb 32, creatinine 1, BUN 16, ammonia 34. Her urine sodium was less than 20 consistent with prerenal CYNTHIA. We are pending blood and urine culture results. Her total output in the past24 hours has been optimal, 2069. She is on sodium chloride 150 mL/hour. We are following gastroenterology recommendations of possible upper endoscopy in the morning if patient condition remains stable. 09/01/2025 Patient was seen and examined at bedside. She is off vasopressor support and is hemodynamically stable. Her chest x-ray showed opacity in the left lower lobe and we will follow up with CT scan of chest. She is started on 2nd day of ppm today. She successfully underwent EGD which showed small, less than 5 mm, esophageal varices with scar in the lower 3rd of the esophagus. Patient was noted to have portal hypertensive gastropathy which was biopsied. Duodenum was normal during examination. Patient is receiving Merrem and her blood culture and urine cultures have shown no growth so far. Due to her elevated ammonia levels, she will be started on lactulose. We will proceed with caution with respect to normal saline as patient's BNP is elevated. REVIEW OF SYSTEMS CONSTITUTIONAL: malaise, poor oral intake NEUROLOGICAL: Denies headache, amaurosis fugax, motor weakness, sensory deficit, vertigo/spinning sensation, gait abnormalities, or tremors. ENT: No hearing loss, otalgia, otorrhea, rhinitis, rhinorrhea, hoarseness, or sore throat. CARDIOVASCULAR: Denies any exertional angina, dyspnea on exertion, orthopnea, paroxysmal nocturnal dyspnea, palpitations, life-threatening arrhythmias, claudication. PULMONARY: Denies any shortness of breath, cough, phlegm/sputum, hemoptysis, pleuritic chest pain. SLEEP: Denies morning headaches, daytime somnolence or napping. Denies difficulty falling asleep, staying asleep, waking from sleep. Denies knowledge of snoring. GASTROINTESTINAL: nausea, vomiting, abdominal pain, melena, coffee ground emesis GENITOURINARY: Urine output has been very low ENDOCRINOLOGIC: Denies polyuria, polydipsia, polyphagia or heat/cold intolerances. PHYSICAL EXAM GENERAL APPEARANCE: The patient is awake, alert, appears chronically ill and very debilitated NEUROLOGICAL: Cranial nerves II-XII grossly intact. Neurological examination is non focal with spontaneous movement of upper and lower extremities HEENT: Face is symmetric. Pupils are equal and reactive. Extraocular movements are intact. NECK: Supple. No JVD. No thyromegaly. No submental, submandibular, pre- /postauricular, occipital or supraclavicular lymphadenopathy. CHEST: Normal chest expansion. No Telemetry. LUNGS: Absence of any rales, rhonchi or any wheezing. CARDIOVASCULAR: Regular. S1 and S2 normal. No appreciable rubs, murmurs or gallops. ABDOMEN: tenderness to palpation of the epigastric region, no rebound noted, there is abdominal drains noted : Deferred. EXTREMITIES: Non-edematous and not cyanotic. No clubbing. Vital Signs (last 8hr) Date Time Temp Pulse Resp B/P (MAP) Pulse Ox O2 Delivery O2 Flow Rate FiO2 09/01/25 13:00 70 16 104/56 (72) 96 09/01/25 12:00 72 18 113/69 (84) 98 09/01/25 12:00 97 Room Air* 0 21 09/01/25 12:00 99.0 70 16 104/56 96 Room Air 21 09/01/25 12:00 Mask 09/01/25 11:59 Mask 10.0 09/01/25 11:15 67 16 111/70 (84) 98 09/01/25 11:00 70 13 104/54 (71) 98 09/01/25 10:45 70 15 126/58 (80) 98 09/01/25 10:30 67 17 111/62 (78) 98 09/01/25 10:15 64 18 108/67 (81) 100 09/01/25 09:30 70 19 104/53 (70) 98 09/01/25 09:00 77 14 101/55 (70) 95 09/01/25 08:30 78 14 114/62 (79) 98 09/01/25 08:15 69 14 109/58 (75) 95 LABS: Laboratory: Test 09/01/25 12:41 09/01/25 11:15 09/01/25 04:29 08/31/25 03:52 Range/Units White Blood Count 3.5 L 4.8-10.8 K/uL Red Blood Count 2.99 L 4.00-5.50 MIL/uL Hemoglobin 9.0 L 12.0-16.0 g/dL Hematocrit 28.1 L 36-48 % Mean Corpuscular Volume 94.0 79-99 fL Mean Corpuscular Hemoglobin 30.1 27.0-33.0 pg Mean Corpuscular Hemoglobin Concent 32.0 32.0-36.0 g/dL Red Cell Distribution Width 17.2 H 11.0-15.5 % Platelet Count 84 L 130-400 K/uL Mean Platelet Volume 9.2 7.5-10.5 fL Nucleated Red Blood Cells 0.0 0.0-0.19 % Potassium Level 3.8 3.5-5.1 mmol/L Phosphorus Level 1.6 L 2.5-4.9 mg/dL B-Type Natriuretic Peptide 810 H 0-100 pg/mL Whole Blood Glucose 123 H 70-110 MG/DL Sodium Level 141 136-145 mmol/L Chloride Level 105 101-111 mmol/L Carbon Dioxide Level 29 21-32 mmol/L Blood Urea Nitrogen 14 7-18 mg/dL Creatinine 0.8 0.5-1.0 mg/dL Glomerular Filtration Rate Calc 86 >90 mL/min Random Glucose 157 H 70-105 mg/dL Total Calcium 7.4 L 8.5-10.1 mg/dL Magnesium Level 2.00 1.80-2.40 mg/dL Total Bilirubin 0.5 0.2-1.0 mg/dL Aspartate Amino Transf (AST/SGOT) 40 H 10-37 U/L Alanine Aminotransferase (ALT/SGPT) 19 12-78 U/L Alkaline Phosphatase 117 50-136 U/L Ammonia 51 H 11-32 umol/L Total Protein 5.4 L 6.0-8.3 g/dL Albumin 1.9 L 3.5-5.0 g/dL Immature Granulocyte % (Auto) 0.8 0-1 % Neutrophils (%) (Auto) 60.9 40.0-77.0 % Lymphocytes (%) (Auto) 23.1 21.0-51.0 % Monocytes (%) (Auto) 14.2 H 3.0-13.0 % Eosinophils (%) (Auto) 0.8 0.0-8.0 % Basophils (%) (Auto) 0.2 0.0-5.0 % Neutrophils # (Auto) 3.1 1.8-7.7 K/uL Lymphocytes # (Auto) 1.2 1.0-4.8 K/uL Monocytes # (Auto) 0.7 0.1-1.0 K/uL Eosinophils # (Auto) 0.04 0.00-0.70 K/uL Basophils # (Auto) 0.01 0.00-0.20 K/uL Absolute Immature Granulocyte (auto 0.04 0-1 K/uL Current Medications Medications (Trade) Dose Ordered Sig/Gregory Route PRN Reason Start Time Stop Time Status Last Admin Dose Admin Acetaminophen (TYLenol 325MG TAB) 650 mg Q6H PRN PO MILD PAIN (1-3) 08/29/25 10:00 09/28/25 09:59 Albuterol (DUOneb) 1 udvial Q6H PRN IH SHORTNESS OF BREATH 08/29/25 10:00 09/28/25 09:59 Calcium Gluconate (Calcium Gluc 1gm Vial) 1 gm ONCE IV 08/29/25 09:30 08/29/25 09:23 DC Dextrose (D50w) 50 ml AD PRN IV HYPOGLYCEMIA PROTOCOL 10/26/25 10:00 09/28/25 09:59 Dextrose/Sodium Chloride 1,000 ml @ 0 mls/hr AD IV 08/29/25 12:30 08/29/25 16:05 DC Glucagon (Glucagon 1mg Kit) 1 mg AD PRN IM HYPOGLYCEMIA PROTOCOL 08/29/25 10:00 09/28/25 09:59 Insulin Human Regular (humuLIN R 100 UNIT/ML 3ML) 5 unit ONCE IV 08/29/25 09:30 08/29/25 09:25 DC Insulin Human Regular (humuLIN R 100 UNIT/ML 3ML) INSULIN SLIDING SCAL... ACHS SQ 08/29/25 11:30 09/28/25 11:29 08/30/25 09:52 4 UNIT Insulin Human Regular 100 unit/ Sodium Chloride 101 ml @ 0 mls/hr PROTOCOL IV 08/29/25 12:30 08/29/25 16:05 DC Lactulose (Constulose 20gm/ 30ml Udcup) 20 gm TID PO 09/01/25 14:00 10/01/25 13:59 09/01/25 13:43 20 GM Magnesium Sulfate 50 ml @ 0 mls/hr PROTOCOL IV 08/29/25 12:30 08/29/25 16:05 DC Magnesium Sulfate 50 ml @ 0 mls/hr PROTOCOL IV 08/30/25 10:00 09/29/25 09:59 08/31/25 21:26 25 MLS/HR Meropenem (Merrem 500mg) 500 mg Q24H IVPB 08/29/25 10:00 08/31/25 09:59 DC 08/30/25 09:46 500 MG Meropenem (Merrem 500mg) 500 mg Q24H IVPB 08/31/25 23:30 09/10/25 23:29 08/31/25 23:33 500 MG Midodrine (PROAMatine 5 MG TABLET) 10 mg BID PO 09/01/25 09:00 08/31/25 18:36 DC Midodrine (PROAMatine 5 MG TABLET) 10 mg TID PO 09/01/25 09:00 10/01/25 08:59 09/01/25 13:43 10 MG Morphine Sulfate (morPHINE 2MG SYG) 2 mg Q4H PRN IVP SEVERE PAIN (7-10) 09/01/25 05:30 09/08/25 05:29 09/01/25 05:25 2 MG Norepinephrine Bitartrate 32 mg/ Sodium Chloride 250 ml @ 0 mls/hr Q0M STAT IV 08/29/25 21:01 08/29/25 21:07 DC 08/29/25 21:13 0 MLS/HR Octreotide Acetate 1250 mcg/ Sodium Chloride 250 ml @ 0 mls/hr PROTOCOL IV 08/29/25 08:30 09/01/25 10:32 DC 08/31/25 10:18 5 MLS/HR Ondansetron HCl (zoFRAN 4MG INJ) 4 mg Q6H PRN IVP NAUSEA/VOMITING 08/29/25 09:30 09/28/25 09:29 09/01/25 14:07 4 MG Pantoprazole Sodium (PROTonix 40MG INJ) 40 mg BID IVP 09/01/25 21:00 10/01/25 20:59 Pantoprazole Sodium 80 mg/ Sodium Chloride 100 ml @ 10 mls/hr Q10H IV 08/29/25 08:30 09/01/25 10:32 DC 09/01/25 05:50 10 MLS/HR Pharmacy Profile Note (Pharmacy Communication) 1 each ONCE MISC 08/29/25 09:30 08/29/25 09:35 DC Pharmacy Profile Note (Pharmacy Communication) 1 each ONCE MISC 08/31/25 23:30 08/31/25 23:17 DC Potassium Chloride 100 ml @ 50 mls/hr AD PRN IV POTASSIUM PROTOCOL 08/29/25 12:30 09/28/25 12:29 09/01/25 13:57 50 MLS/HR Sodium Bicarbonate 150 meq/Dextrose 1,150 ml @ 125 mls/hr Q9H12M IVP 08/29/25 10:00 08/30/25 10:12 DC 08/30/25 08:07 125 MLS/HR Sodium Chloride 250 ml @ 0 mls/hr AD IV 08/29/25 17:30 09/28/25 17:29 Sodium Chloride 1,000 ml @ 0 mls/hr Q0M IV 08/29/25 16:00 08/29/25 16:03 DC Sodium Chloride 1,000 ml @ 0 mls/hr Q0M IV 08/29/25 16:00 09/01/25 08:01 DC 08/29/25 16:10 500 MLS/HR Sodium Chloride 1,000 ml @ 125 mls/hr Q8H IV 08/29/25 09:30 08/29/25 09:57 DC Sodium Chloride 1,000 ml @ 150 mls/hr Q6H40M IV 08/29/25 18:30 09/01/25 09:29 DC 08/31/25 16:16 150 MLS/HR Sodium Chloride 1,000 ml @ 200 mls/hr PROTOCOL IV 08/29/25 12:30 08/29/25 16:05 DC Sodium Chloride 1,000 ml @ 999 mls/hr Q1H1M IV 08/29/25 09:30 08/29/25 09:06 DC Thiamine HCl (Vitamin B-1) 200 mg Q12H IVP 08/29/25 09:30 09/02/25 09:30 09/01/25 08:37 200 MG DIAGNOSTICS / RADIOLOGY: PATIENT: DALLAS BUCHANAN MR#: [id number] : 1970 SEX: F AGE: 55 LOCATION: 2CV ORDER 2300 STATUS: ADM IN REPORT#: [id number] SERVICE 0600 REASON: hypoxic ORDERING PHYSICIAN: LOBO RICKS PROCEDURE: CXR1VW - CHEST 1VW EXAM: CR Chest, 1 View (Portable, Supine). CLINICAL HISTORY: Chest pain. COMPARISON: CR Chest, 2 View ??? 08/31/2025 01:13 AM EDT. FINDINGS: LUNGS: Mild prominence of bronchovascular markings in bilateral lower zone. Area of haziness in left lower zone. Lungs are clear. No focal consolidation, pulmonary edema, or acute infiltrate. PLEURAL SPACES: No pleural effusion or pneumothorax. MEDIASTINUM: Cardiac size and mediastinal contours within normal limits. Right internal jugular central venous catheter remains in similar position with the tip projecting over the distal superior vena cava, unchanged from prior. BONES: No acute osseous abnormality. LINES/DEVICES: Right IJ central venous catheter as described. Monitoring leads noted. No new devices identified. IMPRESSION: * Stable position of right IJ central venous catheter with tip at distal SVC. * Area of haziness in left lower zone likely airspace opacity-New finding compared to previous radiograph. * Mild prominence of bronchovascular markings in bilateral lower zone-New finding compared to previous radiograph. Signed By: EDWIGE LEDESMA M.D. /[place] DICTATED BY: TOBI LEAHY MD DATE: 09/01/251518 ELECTRONICALLY SIGNED BY: TOBI LEAHY MD DATE: 09/01/251518 ASSESSMENT: Hypovolemic hypochloremic hyponatremia, POA, Improving Hemorrhagic shock - requiring vasopressor support, POA, Resolved Acute upper GI bleeding- Hematemesis, dark output from ileostomy bag, POA, Improving Severe hyperkalemia, POA, Resolved Hypokalemia, Not POA Hypophosphatemia, Not POA High anion gap metabolic acidosis, POA, Resolved Hyperammonemia, POA, Improving Lactic acidosis, POA, Resolved Hyperphosphatemia, POA, Resolved Acute renal failure - Prerenal Acute Kidney Injury, POA, Improving Starvation Ketoacidosis, POA Rule out occult sepsis, POA Recent extended hospitalization in [facility], 07/20/2025- 08/25/2025 for sepsis, acute abdomen, POA Severe Dehydration, POA, Improving History of esophageal varices, POA Decompensated liver cirrhosis, POA Hx of acute cholecystitis, s/p cholecystostomy tube placement on 08/02/2025. Perisplenic abscess, s/p CT-guided drainage placement on 08/09/2025. 2.7 x 2.2 x 5.1 cm infrasplenic collection History of gastritis, POA Hx of Generalized peritonitis with ESBL E coli infection, POA Moderate Protein calorie malnutrition POA History of bilious peritonitis with small colonic anastomosis perforation s/p diagnostic laparoscopy, abdominal washout, ileostomy creation by Dr. Gann, 07/21/2025 Hx of DM II, POA Recent colovesical fistula repair with sigmoid colon resection and anastomosis on PLAN: High anion gap metabolic acidosis, Hypovolemic hypochloremic hyponatremia, Severe hyperkalemia, Hyperphosphatemia - On presentation, patient's potassium was 6.8. While Phosphate 7.0. Sodium 119, chloride 87, carbon dioxide 13, consistent with high anion gap metabolic acidosis - EKG was done which showed Sinus rhythm. She received calcium gluconate as well as insulin for hyperkalemia. She also underwent emergent HD. Her potassium improved to 3.5 subsequently. Her sodium also improved to 134, chloride 96, CO2 31 (08/30). - Patient was started on sodium bicarbonate because of acidosis and bicarb deficit. Her BMP Bicarb today is 29. Bicarb drip has been discontinued as per nephrology. - Patient was receiving sodium chloride 150 mls/hr which has been temporarily held. - Total output in past 24 hours is 2235 vs 3325 input. - Monitor input and output as well as daily weights. - We will follow up with nephrology recommendations and repeat CMP, CBC and related labs in the morning. Hemorrhagic shock, Acute upper GI bleeding- Hematemesis, dark output from ileostomy bag - Patient has been weaned off Levophed drip. Hemodynamically stable - patient underwent EGD today. - Sandostatin drip stopped. - Pantoprazole 40mg IV bid x 24 hours then pantoprazole 40mg po daily - Clear fluids, if tolerating may advance to full liquids, and then soft bland diet. - Trend hemoglobin and keep it above 7. Patient's hemoglobin 9.9 (08/30) - Keep map above 65. Lactic acidosis, starvation acidosis, Suspected occult sepsis. - WBCs are 5.1 (08/31). - We will follow with blood culture and urine culture which are negative so far. -patient is continued on Merrem as per Infectious Disease recommendation Acute renal failure, Prerenal Acute Kidney Injury, Dehydration - On Presentation, patient's creatinine was 5, BUN 80. - FENa <0.2, Stone <20 - Urine microscopy showed Hyaline and granular casts - patient was started on NaCl 150mls/hr which has been stopped. - Bicarb drip has been discontinued as per nephrology. - patient is successfully weaned off Levophed - Patient received emergent hemodialysis session for elevated renal parameters as well as electrolyte derangements including Hyperkalemia and acidosis. - Her creatinine and BUN have improved to 1.0 and 16 respectively (08/31) - Transfuse as needed to keep Hb above 7 (Hb=9.0, 08/31/25) - Monitor input and output. Patient's total output in the past24 hours is 2070, versus 3950 input. - We will repeat a.m. labs and follow up with Nephrology recommendations. Hyperammonemia - On 09/01, ammonia levels are 51. Patient is started on lactulose. - Follow up with morning ammonia levels. Hypokalemia, Hypophosphatemia - Patient's potassium dropped to 2.9 and phosphate 1.8 today. 08/31/2025 - Patient is started on potassium phosphate IV. - We will follow up with Nephrology recommendation and repeat labs in the morning. ATTESTATION BY PHYSICIAN I have seen and examined the patient. I reviewed the documentation, medical decision making, and treatment plan as noted by the resident physician above. I agree with the findings and plan of care. AYAKA BARR MD, [facility]AMMAD H MD Sep 01, 2025 16:27
--- NOTE | 2025-09-01 21:03 | PN ---
INFECTIOUS DISEASE PROGRESS NOTE Date of Service: Sep 01, 2025 SUBJECTIVE: This is a 55-year-old female patient who remains in the ICU room 214. Patient is awake, alert and oriented. S/p EGD today. No more nausea or vomiting reported. Sandostatin and Protonix drip was discontinued and patient has been started on Protonix 40 mg IV b.i.d. Pending a CT scan of the abdomen/pelvis to evaluate for left Perisplenic abscess percutaneous drainage catheter and right cholecystostomy tube for possible removal. Patient is afebrile, temperature is 98.4. We will continue on Meropenem. We will continue to monitor patient closely. PHYSICAL EXAM EYES: Anicteric. Pupils equal and reactive. HENT: No oral thrush seen, moist Oral mucosa. NECK: Supple, no JVD or thyromegaly. LUNGS: Good air entry. No rales, no rhonchi. CARDIOVASCULAR: S1, S2 regular. No murmur heard. ABDOMEN: Soft, non tender, bowel sounds present, no organomegaly. Right ileostomy. Left Perisplenic abscess percutaneous drainage catheter. CENTRAL NERVOUS SYSTEM: Awake, alert, oriented x 3. SKIN: No rashes, no swelling. LYMPHATICS: No peripheral lymphadenopathy. MUSCULOSKELETAL: No joint swelling, erythema or tenderness. EXTREMITIES: No cyanosis or clubbing. BACK: No deformity, no pressure ulcer. GENITOURINARY: No dysuria or hematuria. Dueñas catheter. Vital Sign (Last 12 Hours) 09/01/25 09/01/25 09/01/25 09/01/25 09:30 10:15 10:30 10:45 Pulse 70 64 67 70 Resp 19 18 17 15 B/P (MAP) 104/53 (70) 108/67 (81) 111/62 (78) 126/58 (80) Pulse Ox 98 100 98 98 09/01/25 09/01/25 09/01/25 09/01/25 11:00 11:15 11:59 12:00 Pulse 70 67 Resp 13 16 B/P (MAP) 104/54 (71) 111/70 (84) Pulse Ox 98 98 O2 Delivery Mask Mask O2 Flow Rate 10.0 09/01/25 09/01/25 09/01/25 09/01/25 12:00 12:00 12:00 13:00 Temp 99.0 Pulse 70 72 70 Resp 16 18 16 B/P (MAP) 104/56 113/69 (84) 104/56 (72) Pulse Ox 96 97 98 96 O2 Delivery Room Air Room Air* O2 Flow Rate 0 FiO2 21 21 09/01/25 16:00 Temp 99.0 Pulse 53 Resp 20 B/P (MAP) 131/71 Pulse Ox 99 O2 Delivery Room Air Intake & Output (last 24hrs) 08/31/25 08/31/25 09/01/25 15:00 23:00 07:00 Intake Total 1271.2 ml 1158.0 ml 1043.9 ml Output Total 1415 ml 820 ml Balance 1271.2 ml -257.0 ml 223.9 ml LABS: Laboratory: Test 09/01/25 19:44 09/01/25 12:41 09/01/25 04:29 08/31/25 03:52 Range/Units Whole Blood Glucose 138 H 70-110 MG/DL White Blood Count 3.5 L 4.8-10.8 K/uL Red Blood Count 2.99 L 4.00-5.50 MIL/uL Hemoglobin 9.0 L 12.0-16.0 g/dL Hematocrit 28.1 L 36-48 % Mean Corpuscular Volume 94.0 79-99 fL Mean Corpuscular Hemoglobin 30.1 27.0-33.0 pg Mean Corpuscular Hemoglobin Concent 32.0 32.0-36.0 g/dL Red Cell Distribution Width 17.2 H 11.0-15.5 % Platelet Count 84 L 130-400 K/uL Mean Platelet Volume 9.2 7.5-10.5 fL Nucleated Red Blood Cells 0.0 0.0-0.19 % Potassium Level 3.8 3.5-5.1 mmol/L Phosphorus Level 1.6 L 2.5-4.9 mg/dL B-Type Natriuretic Peptide 810 H 0-100 pg/mL Sodium Level 141 136-145 mmol/L Chloride Level 105 101-111 mmol/L Carbon Dioxide Level 29 21-32 mmol/L Blood Urea Nitrogen 14 7-18 mg/dL Creatinine 0.8 0.5-1.0 mg/dL Glomerular Filtration Rate Calc 86 >90 mL/min Random Glucose 157 H 70-105 mg/dL Total Calcium 7.4 L 8.5-10.1 mg/dL Magnesium Level 2.00 1.80-2.40 mg/dL Total Bilirubin 0.5 0.2-1.0 mg/dL Aspartate Amino Transf (AST/SGOT) 40 H 10-37 U/L Alanine Aminotransferase (ALT/SGPT) 19 12-78 U/L Alkaline Phosphatase 117 50-136 U/L Ammonia 51 H 11-32 umol/L Total Protein 5.4 L 6.0-8.3 g/dL Albumin 1.9 L 3.5-5.0 g/dL Immature Granulocyte % (Auto) 0.8 0-1 % Neutrophils (%) (Auto) 60.9 40.0-77.0 % Lymphocytes (%) (Auto) 23.1 21.0-51.0 % Monocytes (%) (Auto) 14.2 H 3.0-13.0 % Eosinophils (%) (Auto) 0.8 0.0-8.0 % Basophils (%) (Auto) 0.2 0.0-5.0 % Neutrophils # (Auto) 3.1 1.8-7.7 K/uL Lymphocytes # (Auto) 1.2 1.0-4.8 K/uL Monocytes # (Auto) 0.7 0.1-1.0 K/uL Eosinophils # (Auto) 0.04 0.00-0.70 K/uL Basophils # (Auto) 0.01 0.00-0.20 K/uL Absolute Immature Granulocyte (auto 0.04 0-1 K/uL ASSESSMENT: Acute hypoxic respiratory failure requiring oxygen support, resolved. Possible Sepsis. Gastrointestinal bleeding, status post EGD. Acute renal failure requiring dialysis, resolved. Severe Dehydration. Hypokalemia. Hyponatremia, resolved. Diabetes mellitus. Perisplenic abscess with a recent CT-guided drainage placement on 08/09/2025. Cholecystostomy tube placement on 08/02/2025 due to acute cholecystitis. Recent laparoscopy, abdominal washout, ileostomy creation on 07/21/2025. PLAN: Continue Meropenem. Continue vasopressor support. Continue critical care support. Continue antidiabetics. Monitor for bleeding. Continue IV fluids. Continue Protonix. Pending a CT scan of the abdomen/pelvis to evaluate for left Perisplenic abscess percutaneous drainage catheter and right cholecystostomy tube for possible removal. This case was reviewed and discussed with my supervising physician Dr. Tripathi and the above assessment and plan was formulated and agreed upon. ATTESTATION BY PHYSICIAN I have seen and examined the patient. I reviewed the documentation, medical decision making, and treatment plan as noted by the mid-level provider above. I agree with the findings and plan of care. AMIE TRIPATHI MD, [facility] Sep 01, 2025 21:03
--- NOTE | 2025-09-01 21:07 | PN ---
[facility] PROGRESS NOTE Date Patient Seen: Sep 01 2025 Time of Visit: 1000 Supervising Physician: Richy Chin MD Primary Care Physician: Jes Olivera Outpatient Specialists: [ ] Inpatient Consults: [facility] PROBLEM LIST: GI bleed in the presence of esophageal varices Acute decompensated liver cirrhosis Hyperammonemia Hyponatremia Moderate protein malnutrition Severe dehydration Starvation ketosis Hyperglycemia in the presence of type 2 diabetes mellitus, POA 2.7 x 2.2 x 5.1 cm infrasplenic collection hx of acute cholecystitis, s/p cholecystostomy tube to right upper quadrant placement on 08/02/2025. Perisplenic abscess, s/p CT-guided drainage placement on 08/09/2025. History of bilious peritonitis with small colonic anastomosis perforation s/p diagnostic laparoscopy, abdominal washout, ileostomy creation by Dr. Gann, 07/05 Gastritis Hx of Generalized peritonitis with ESBL E coli infection, POA Recent colovesical fistula repair with sigmoid colon resection and anastomosis on INTERVAL HISTORY: Chart reviewed including all laboratory and imaging results. Patient assessed at bedside. She is awake alert and oriented x3. Hemodynamically stable and off pressors support. Denies chest pain, palpitation, or shortness for breath. She is going for EGD this morning. We may remove Trialysis catheter per metal reclamation kettle tender no further plans for hemodialysis. No major overnight events reported. Patient may downgrade post EGD if no immediate complications. REVIEW OF SYSTEMS: General:+ generalized weakness Neurological: No fainting episodes or seizures. HEENT: No nasal congestion or nasal secretion. Respiratory: No cough, shortness of breath, or wheezing Cardiac: No chest pain or palpitations. Gastrointestinal: No vomiting or diarrhea. Poor appetite Genitourinary: No dysuria hematuria. Skin: No rashes or lesions. Hematological: No bruises or bleeding. Musculoskeletal: No joint pains or arthralgias. Psychiatric: No depression or panic attacks. PHYSICAL EXAM: GENERAL: Chronically ill, weak, debilitated, malnourished HEENT: EOMI, Sclera non icteric, dry mucosa NECK: Supple, no JVD, trachea midline LUNGS: Clear breath sounds bilaterally. No wheezes HEART: Regular rate and rhythm. Normal S1 and S2, without murmurs ABD: Abdomen soft, nontender. Bowel sounds present, right upper quadrant cholecystostomy tube, left upper quadrant accordion drain, ileostomy to right lower quadrant. EXT: No clubbing cyanosis or edema NEURO: GCS of 15 No focal weakness. Vital Signs (last 8hr) Date Time Temp Pulse Resp B/P (MAP) Pulse Ox O2 Delivery O2 Flow Rate FiO2 09/01/25 16:00 99.0 53 20 131/71 99 Room Air LABS: Hematology Labs: Test 09/01/25 12:41 08/31/25 03:52 Range/Units White Blood Count 3.5 L 4.8-10.8 K/uL Red Blood Count 2.99 L 4.00-5.50 MIL/uL Hemoglobin 9.0 L 12.0-16.0 g/dL Hematocrit 28.1 L 36-48 % Mean Corpuscular Volume 94.0 79-99 fL Mean Corpuscular Hemoglobin 30.1 27.0-33.0 pg Mean Corpuscular Hemoglobin Concent 32.0 32.0-36.0 g/dL Red Cell Distribution Width 17.2 H 11.0-15.5 % Platelet Count 84 L 130-400 K/uL Mean Platelet Volume 9.2 7.5-10.5 fL Nucleated Red Blood Cells 0.0 0.0-0.19 % Immature Granulocyte % (Auto) 0.8 0-1 % Neutrophils (%) (Auto) 60.9 40.0-77.0 % Lymphocytes (%) (Auto) 23.1 21.0-51.0 % Monocytes (%) (Auto) 14.2 H 3.0-13.0 % Eosinophils (%) (Auto) 0.8 0.0-8.0 % Basophils (%) (Auto) 0.2 0.0-5.0 % Neutrophils # (Auto) 3.1 1.8-7.7 K/uL Lymphocytes # (Auto) 1.2 1.0-4.8 K/uL Monocytes # (Auto) 0.7 0.1-1.0 K/uL Eosinophils # (Auto) 0.04 0.00-0.70 K/uL Basophils # (Auto) 0.01 0.00-0.20 K/uL Absolute Immature Granulocyte (auto 0.04 0-1 K/uL Chemistry Labs: Test 09/01/25 19:44 09/01/25 12:41 09/01/25 04:29 Range/Units Whole Blood Glucose 138 H 70-110 MG/DL Potassium Level 3.8 3.5-5.1 mmol/L Phosphorus Level 1.6 L 2.5-4.9 mg/dL B-Type Natriuretic Peptide 810 H 0-100 pg/mL Sodium Level 141 136-145 mmol/L Chloride Level 105 101-111 mmol/L Carbon Dioxide Level 29 21-32 mmol/L Blood Urea Nitrogen 14 7-18 mg/dL Creatinine 0.8 0.5-1.0 mg/dL Glomerular Filtration Rate Calc 86 >90 mL/min Random Glucose 157 H 70-105 mg/dL Total Calcium 7.4 L 8.5-10.1 mg/dL Magnesium Level 2.00 1.80-2.40 mg/dL Total Bilirubin 0.5 0.2-1.0 mg/dL Aspartate Amino Transf (AST/SGOT) 40 H 10-37 U/L Alanine Aminotransferase (ALT/SGPT) 19 12-78 U/L Alkaline Phosphatase 117 50-136 U/L Ammonia 51 H 11-32 umol/L Total Protein 5.4 L 6.0-8.3 g/dL Albumin 1.9 L 3.5-5.0 g/dL DIAGNOSTICS / RADIOLOGY RESULTS: [ [place] [address] [address] IMAGING REPORT Signed PATIENT: DALLAS BUCHANAN MR#: [id number] : 1970 SEX: F AGE: 55 LOCATION: 2CV ORDER 2300 STATUS: ADM IN REPORT#: [id number] SERVICE 0600 REASON: hypoxic ORDERING PHYSICIAN: LOBO RICKS PROCEDURE: CXR1VW - CHEST 1VW EXAM: CR Chest, 1 View (Portable, Supine). CLINICAL HISTORY: Chest pain. COMPARISON: CR Chest, 2 View ??? 08/31/2025 01:13 AM EDT. FINDINGS: LUNGS: Mild prominence of bronchovascular markings in bilateral lower zone. Area of haziness in left lower zone. Lungs are clear. No focal consolidation, pulmonary edema, or acute infiltrate. PLEURAL SPACES: No pleural effusion or pneumothorax. MEDIASTINUM: Cardiac size and mediastinal contours within normal limits. Right internal jugular central venous catheter remains in similar position with the tip projecting over the distal superior vena cava, unchanged from prior. BONES: No acute osseous abnormality. LINES/DEVICES: Right IJ central venous catheter as described. Monitoring leads noted. No new devices identified. IMPRESSION: * Stable position of right IJ central venous catheter with tip at distal SVC. * Area of haziness in left lower zone likely airspace opacity-New finding compared to previous radiograph. * Mild prominence of bronchovascular markings in bilateral lower zone-New finding compared to previous radiograph. Signed By: EDWIGE LEDESMA M.D. /[place] DICTATED BY: TOBI LEAHY MD DATE: 09/01/251518 ELECTRONICALLY SIGNED BY: TOBI LEAHY MD DATE: 09/01/251518 ] PLAN Plans for EGD today Follow nephrology recommendations Discontinue Trialysis catheter wean steroids Continues midodrine 10 mg tid PO Follow Nephrology recommendations Follow General surgery recommendations Monitor electrolytes and cover accordingly. Per General surgery recommends G-tube for improved nutrition Aspiration precautions Monitor ammonia levels NEURO: Minimize central acting medications as possible. Fall Precautions. Well lighted room through the day and minimize interruptions through the night to prevent acute delirium. PULMONARY: Supplemental 02 as needed Titrate Fio2 to keep Spo2 > or = 90% DuoNebs and CPT as needed IS hourly while awake for pulmonary hygiene Out of bed to chair as tolerated CARDIOVASCULAR: Follow hemodynamics. Titrate vasopressor to keep MAP >65 or systolic blood pressure >95mmHg Drips: Sodium bicarb drip LINES: PIV Transferred to right IJ Right upper quadrant cholecystostomy tube Left upper quadrant accordion drain Ileostomy to right lower quadrant GI & NUTRITION: Continue nutritional support Aspirations precautions Prokinetic agents and laxatives as needed KIDNEYS & ELECTROLYTES: Strict monitoring of intake and output Daily weights Avoid nephrotoxic agents Monitor electrolytes and replace as needed Goal urine output of 30mL/hr or 0.5mL/kg/hr Follow Nephrology recommendations Place Trialysis catheter per Nephrology recommendation next Case Dueñas catheter ENDOCRINE: Maintain blood glucose between 100-180 at all times. Insulin sliding scale for blood glucose management INFECTIOUS DISEASE: Trend temperature. [place]-culture if febrile. Micro: [ ] Blood culture Urine culture Antibiotics: [ Meropenem] HEMATOLOGY & COAGULATION: Monitor H&H. Keep Hgb > 7 Transfuse 1 unit of PRBC for Hgb < 7 Transfuse 1 pack of platelets of platelets < 20, 000 Watch for any signs and symptoms of bleeding SKIN: Pressure ulcer prevention per facility protocol Rehab: PT/OT Prophylaxis: GI: [Protonix drip Sandostatin ] DVT: [ No chemical SCDs due to GI bleed, SCDs for now Code Status: Full Resuscitation Disposition: ICU ] Other: Critical care time This patient required multiple bedside visits to manage the patient, review blood gases, coordinate with respiratory, nurses, talk to Nephrology and Primary team, review radiology exams, talk to the family members and discuss advanced directives. I personally spent 45 minutes of critical care time in treatment of this patient. This includes patient management, time at bedside, time reviewing tests, labs, appropriate images and studies, documentation, and patient care coordination. This time excludes separately billable procedures. ATTESTATION BY PHYSICIAN I have evaluated the patient chart, medical records, and spoke with appropriate staff. I reviewed the documentation, medical decision making, and treatment plan as noted by the mid-level provider above. I agree with the findings and plan of care. Richy Chin MD, [facility] Sep 01, 2025 21:07
--- NOTE | 2025-09-01 21:57 | HMCIMG ---
EXAM: CT CHEST WITHOUT INTRAVENOUS CONTRAST Technique: Helical computed tomography of the chest from thoracic inlet through the upper abdomen without intravenous contrast, with axial images and coronal/sagittal reformations. Dose optimization performed in accordance with ALARA. Clinical Information: Left lower lung lobe opacities. Comparison: Chest radiograph dated 09/01/2025 at 05:46 EDT. Findings: Soft tissues: Unremarkable. Lungs and large airways: Central airways are patent. Subsegmental consolidation in the posterior segments of both lower lobes. Additional subsegmental consolidation in the superior segment of the left upper lobe. Linear atelectatic bands in the superior lingular segment and posterior segment of the left upper lobe. A calcified pulmonary nodule measures 5 mm in the right lower lobe (series 3, image 29). Pleura: Minimal bilateral pleural effusions. No pneumothorax. Heart and pericardium: Cardiac size within normal limits. No pericardial effusion. Aorta: Normal course and caliber on this noncontrast study. Pulmonary arteries: Evaluation limited without contrast; no large central filling defect is seen on this noncontrast exam. Lymph nodes: No pathologically enlarged mediastinal or hilar lymph nodes. Mediastinum and toya: No mass identified. Chest wall and lower neck: No acute abnormality. Bones/joints: No acute osseous abnormality. Upper abdomen: Visualized portions without acute abnormality; detailed abdominal findings are reported separately. Impression: * Subsegmental consolidation in the posterior segments of both lower lobes and in the superior segment of the left upper lobe with minimal bilateral pleural effusions???most compatible with multifocal atelectasis versus infection/aspiration in the appropriate clinical context. Recommend clinical correlation and short-interval follow-up chest imaging to document resolution. * Benign-appearing calcified pulmonary nodule in the right lower lobe measuring 5 mm (series 3, image 29), consistent with a granuloma; no additional suspicious nodules identified. * No pneumothorax or acute cardiomediastinal abnormality identified on this noncontrast examination. /[place]
--- NOTE | 2025-09-01 22:00 | HMCIMG ---
EXAM: CT ABDOMEN WITHOUT INTRAVENOUS CONTRAST Technique: Multislice helical computed tomography of the abdomen was performed from the diaphragms through the iliac crests with axial images and coronal/sagittal reformations. Dose optimization per ALARA. Contrast: No intravenous contrast administered. Contrast Impression: Noncontrast technique limits assessment of enhancement-dependent pathology and characterization of fluid collections. Clinical Information: Evaluation of left upper quadrant pigtail drain for possible removal. Comparison: CT abdomen/pelvis without contrast dated 08/29/2025. Findings: Lung bases: Interval development of small bilateral pleural effusions with dependent subsegmental atelectasis in the lower lobes. Previously described tiny calcified nodules are not conspicuous on the current noncontrast images. Liver: Morphologic features of cirrhosis are unchanged. No focal hepatic lesion identified on this noncontrast study. Gallbladder and bile ducts: Decompressed gallbladder with a cholecystostomy tube in place, stable. No biliary ductal dilatation. Pancreas: Normal contour without peripancreatic inflammatory change. Spleen: Infrasplenic fluid collection adjacent to the splenic inferior pole measuring approximately 2.7 ??? 3.5 ??? 6.4 cm (previously 2.7 ??? 2.2 ??? 5.1 cm), with a pigtail drainage catheter in situ and mild adjacent fat stranding. Adrenal glands: Normal morphology bilaterally. Kidneys and ureters: Kidneys within normal size and contour; no hydronephrosis or hydroureter; no nephrolithiasis. Urinary bladder: Dueñas catheter in place with small intraluminal gas foci, likely iatrogenic; bladder otherwise unremarkable. Stomach and bowel: Right iliac fossa ileostomy defect ( 2.4 cm) and postoperative bowel changes, stable. No evidence of bowel obstruction, enteritis, or colitis. Peritoneum and mesentery: New minimal free fluid predominantly along the greater curvature of the stomach with mild mesenteric edema (anasarca). No free intraperitoneal air. Lymph nodes: No pathologic abdominopelvic lymphadenopathy. Vasculature: Abdominal aorta normal in caliber. Abdominal wall/soft tissues: Expected postoperative changes at the ostomy site; otherwise unremarkable. Osseous structures: No acute or aggressive osseous abnormality; mild degenerative changes in the visualized spine. Impression: * Infrasplenic collection with indwelling pigtail drain has increased in size compared with 08/29/2025 (now 2.7 ??? 3.5 ??? 6.4 cm from 2.7 ??? 2.2 ??? 5.1 cm) with mild surrounding fat stranding???ongoing collection persists. Drain removal is not advised at this time based on interval enlargement; recommend interventional radiology review for catheter position/patency, consideration of catheter upsizing or repositioning, and correlation with output and culture. * New small bilateral pleural effusions with dependent basilar atelectasis. Monitor clinically; consider diuresis or follow-up imaging as indicated. * Cirrhotic hepatic morphology, unchanged. * Decompressed gallbladder with cholecystostomy tube in place, stable; no biliary ductal dilatation. * Minimal ascites and mild mesenteric edema (anasarca), new from prior. * Dueñas catheter with small intravesical gas, likely iatrogenic. * No bowel obstruction, hydronephrosis, or nephrolithiasis identified. /[place]
[2025-09-01] MEDS: M.V.I. IV [ADULT] 10 ML in CLINIMIX-E4.25%AA/D5+LYT2000ML 2,000 ML IV ONE (22:13)
--- NOTE | 2025-09-01 22:54 | NUR ---
Mone Paged Spoke with Mat RIZZO in regards to patient's Right Arm Midline. Explained that the patient expressed pain, hot to touch, and leaking of fluids. On assessment, patient's midline was no longer working. MATTHIAS gave the order to discontinue and to place a new vascular access (midline) for poor venous access. Orders received read back and entered in the system.
--- NOTE | 2025-09-01 23:20 | PN ---
FOLLOWUP PROGRESS NOTE SUBJECTIVE: A 55-year-old female who initially presented with acute renal failure, patient with hyperkalemia requiring one course of dialysis. The patient's creatinine has improved and she is being seen as a followup visit for all of the above. The patient is scheduled for EGD later today. She has been started on TPN and patient is being seen as a followup visit for all of the above. REVIEW OF SYSTEMS: CONSTITUTIONAL: She is feeling improved. HEENT: No change in vision. No change in hearing. CARDIOVASCULAR: No current chest pain or palpitations. PULMONARY: There is no shortness of breath. GASTROINTESTINAL: As described above. MUSCULOSKELETAL: Complains of weakness. PHYSICAL EXAMINATION: VITAL SIGNS: Blood pressure is 109/58. Pulse is 60. GENERAL: She is a chronically ill female, much older than appearing. HEENT: Head is atraumatic. Pupils are equal, round and reactive to light. Oropharynx is without exudate. Nares are clear. NECK: There is no JVP. No thyromegaly. No masses. CARDIOVASCULAR: Regular. There is no S3 or S4 gallop. LUNGS: Coarse with equal thoracic movement. ABDOMEN: Soft, nondistended, nontender. EXTREMITIES: No clubbing, no cyanosis. NEUROLOGICAL: She is awake. She is alert. LABORATORY DATA: Sodium 141, potassium 3.3, BUN 14, creatinine 0.8, hemoglobin 8.7, and hematocrit 27. IMPRESSION: Acute renal failure. Electrolyte abnormalities. Diabetes mellitus. Hypertension. PLAN: The patient's potassium has been aggressively repleted. The patient's blood pressure is under better control. The patient has been weaned off all the pressors. The patient's GI workup is ongoing. We will continue to follow closely. The patient can safely be transferred out to medical floor from a renal standpoint. TID: [id number] RECEIPT: [id number]
[2025-09-02] VITALS (12 sets, daily range): BP systolic 106–135; BP diastolic 53–72; PULSE 53–71; RESP 12–28; TEMP 98.2–98.7; O2SAT 95–97
[2025-09-02 05:38] LABS: INR 1.57 (0.85-1.15)
[2025-09-02 05:41] LABS: SODIUM SERUM 137.0 mmol/L (136-145)
[2025-09-02 05:42] LABS: ASPARTATE AMINOTRANSFERASE 32.0 U/L (10-37); CREATININE 0.7 mg/dL (0.5-1.0); GLOMERULAR FILTR. RATE CALC 101.0 mL/min (>90); GLUCOSE,RANDOM 135.0 mg/dL (70-105); PHOSPHORUS 2.5 mg/dL (2.5-4.9); TOTAL PROTEIN, SERUM 5.6 g/dL (6.0-8.3); UREA NITROGEN, BLOOD 18.0 mg/dL (7-18)
[2025-09-02 06:21] LABS: NUCLEATED RED BLOOD CELLS 0.0 % (0.0-0.19); PLATELET COUNT (AUTO) 99.0 K/uL (130-400); RED BLOOD CELL COUNT(AUTO) 2.77 MIL/uL (4.00-5.50); RED CELL DISTRIBUTION WIDTH 17.4 % (11.0-15.5); WHITE BLOOD COUNT (AUTO) 4.4 K/uL (4.8-10.8)
--- NOTE | 2025-09-02 10:22 | NUR ---
TRANSFER TO UNIT PATIENT ARRIVED ON UNIT. NO DISTRESS NOTED AT THIS TIME. PATIENT ORIENTED TO ROOM.
--- NOTE | 2025-09-02 10:22 | NUR ---
Transfer to 302. Gave report to VIK Jay. No distress noted.
[2025-09-02] MEDS ORDERED: MAGNESIUM 2GM PREMIX 50ML 50 ML IV SCH (13:30)
--- NOTE | 2025-09-02 14:26 | PN ---
[facility] PROGRESS NOTE Date of Service: Sep 02, 2025 Time of Service: 14:23 SUBJECTIVE: As per admission notes "50-year-old female with underlying history of type 2 diabetes mellitus, history of liver cirrhosis, prior history of esophageal varices requiring banding in May,, history of robotic sigmoid resection with takedown of colovesical fistula who was recently hospitalized in [facility] from 07/20/2025 - 08/25/2025 patient was found to have bilious peritonitis with 2 mm perforation of colonic anastomosis requiring diagnostic laparoscopy, abdominal washout and drain placement with creation of diverting loop ileostomy. Patient was hospitalized for about one month and subsequently required IR guided drain placement as well. She was just discharged from the hospital on 08/25/2025. Patient's daughter reports that patient was having nausea and vomiting with poor oral intake at home. She started to have coffee-ground emesis today and she also noticed some right streaks of blood with a coffee-ground emesis. Stool has also been dark in the ileostomy bag. Patient is having moderate intensity abdominal pain as well. She has not been taking any NSAIDs. Daughter reports that patient has been very weak since her discharge in very debilitated. Patient denies active chest pain. Denies active shortness of breath. On presentation to the hospital, patient was noted to be afebrile with T-max of 97.5 F, heart rate of 100, blood pressure of 127/91. [place] [address], hemoglobin of 16.4, platelet count of 437450. BMP was repeated twice, BMP showed sodium of 117, potassium 7.0, chloride of 88, CO2 of seven, BUN of 83, creatinine 5.0, blood glucose of 99, calcium 10.4. Blood gas showed pH of 7.28, bicarb of close to eight, CO2 of 18, lactic acid of three. Patient will be admitted to ICU. Patient is presenting with severe renal failure with hyperkalemia and severe metabolic acidosis. Patient also with concerns for upper GI bleeding with coffee-ground emesis. Patient remains critically ill consultation with Intensive Care, Nephrology, GI will be requested. We we will obtain a CT abdomen pelvis without contrast for further evaluation as well. Patient is critically ill. Plan of care was discussed with patient and daughter at bedside" 08/30/2025 Patient was seen and examined at bedside. Her blood pressure has been low, 88/54, heart rate 86. She is currently on Levophed 0.2 Mcg, octreotide, Protonix, sodium bicarbonate drip. She received 2nd hemodialysis session yesterday. As per Nephrology, she will continue to receive dialysis inpatient. Her high anion gap metabolic acidosis is improving with sodium 134, carbon dioxide 31, chloride 96. Her creatinine has trended down from 5-1.8. General surgery consult is on board and we will follow up with their recommendations. Additionally, in the light of history of liver cirrhosis with esophageal varices, her recent hematemesis will be evaluated with GI consult and possible endoscopy. We discussed this with the patient and her family members present besides. Patient is started on Merrem and blood culture, urine cultures show no growth so far. Her lactic acid has trended down from 3.1 to 2.1. 08/31/2025 Patient was seen and examined at bedside in room 214. She continues to be on Levophed 0.1 which is being weaned off. She is also on Sandostatin and Protonix drip. Patient complained of mild pain along the sides of her drain but denied any nausea or episode of vomiting since Saturday. Minimal drainage was noted. Sodium bicarb was discontinued as per Nephrology. Her lab markers have improved with sodium 141, chloride 104, bicarb 32, creatinine 1, BUN 16, ammonia 34. Her urine sodium was less than 20 consistent with prerenal CYNTHIA. We are pending blood and urine culture results. Her total output in the past24 hours has been optimal, 2069. She is on sodium chloride 150 mL/hour. We are following gastroenterology recommendations of possible upper endoscopy in the morning if patient condition remains stable. 09/01/2025 Patient was seen and examined at bedside. She is off vasopressor support and is hemodynamically stable. Her chest x-ray showed opacity in the left lower lobe and we will follow up with CT scan of chest. She is started on 2nd day of ppm today. She successfully underwent EGD which showed small, less than 5 mm, esophageal varices with scar in the lower 3rd of the esophagus. Patient was noted to have portal hypertensive gastropathy which was biopsied. Duodenum was normal during examination. Patient is receiving Merrem and her blood culture and urine cultures have shown no growth so far. Due to her elevated ammonia levels, she will be started on lactulose. We will proceed with caution with respect to normal saline as patient's BNP is elevated. 09/02/2025 The patient has been seen and examined earlier this morning during my rounding, case discussed with the RN, no acute events overnight, blood pressure 118/71, heart rate of 56, afebrile, saturating normal on room air, CBC showing hemoglobin 8.5, hematocrit 36.8, WBC of 4.4, platelet count of 99, sodium 137, potassium 3.8, BUN of 18, creatinine 0.7, magnesium Lasix. Results of blood culture no growth after four days. Urine culture no growth. EGD reviewed, small less than 5 mm esophageal varices with scar in the lower 3rd of the esop hagus. Patient with a bottle hypertensive gastropathy, status post biopsy, duodenum was normal during examination. Patient to be downgraded to the medical floor, continue banana bag, continue Protonix 40 mg IV b.i.d.. Plan for possible PEG tube placement. REVIEW OF SYSTEMS CONSTITUTIONAL: malaise, poor oral intake NEUROLOGICAL: Denies headache, amaurosis fugax, motor weakness, sensory deficit, vertigo/spinning sensation, gait abnormalities, or tremors. ENT: No hearing loss, otalgia, otorrhea, rhinitis, rhinorrhea, hoarseness, or sore throat. CARDIOVASCULAR: Denies any exertional angina, dyspnea on exertion, orthopnea, paroxysmal nocturnal dyspnea, palpitations, life-threatening arrhythmias, claudication. PULMONARY: Denies any shortness of breath, cough, phlegm/sputum, hemoptysis, pleuritic chest pain. SLEEP: Denies morning headaches, daytime somnolence or napping. Denies difficulty falling asleep, staying asleep, waking from sleep. Denies knowledge of snoring. GASTROINTESTINAL: nausea, vomiting, abdominal pain, melena, coffee ground emesis GENITOURINARY: Urine output has been very low ENDOCRINOLOGIC: Denies polyuria, polydipsia, polyphagia or heat/cold intolerances. PHYSICAL EXAM GENERAL APPEARANCE: The patient is awake, alert, appears chronically ill and very debilitated NEUROLOGICAL: Cranial nerves II-XII grossly intact. Neurological examination is non focal with spontaneous movement of upper and lower extremities HEENT: Face is symmetric. Pupils are equal and reactive. Extraocular movements are intact. NECK: Supple. No JVD. No thyromegaly. No submental, submandibular, pre-/po stauricular, occipital or supraclavicular lymphadenopathy. CHEST: Normal chest expansion. No Telemetry. LUNGS: Absence of any rales, rhonchi or any wheezing. CARDIOVASCULAR: Regular. S1 and S2 normal. No appreciable rubs, murmurs or gallops. ABDOMEN: tenderness to palpation of the epigastric region, no rebound noted, there is abdominal drains noted : Deferred. EXTREMITIES: Non-edematous and not cyanotic. No clubbing. Vital Signs (last 8hr) Date Time Temp Pulse Resp B/P (MAP) Pulse Ox O2 Delivery O2 Flow Rate FiO2 09/02/25 10:10 98.4 56 20 118/71 96 Room Air 21 09/02/25 08:00 98.8 63 21 123/66 89 Room Air LABS: Laboratory: Test 09/02/25 10:55 09/02/25 06:00 09/02/25 05:05 09/01/25 12:41 Range/Units Whole Blood Glucose 107 70-110 MG/DL Bedside Glucose Comment Notified Nurse White Blood Count 4.4 #L 4.8-10.8 K/uL Red Blood Count 2.77 L 4.00-5.50 MIL/uL Hemoglobin 8.5 L 12.0-16.0 g/dL Hematocrit 26.8 L 36-48 % Mean Corpuscular Volume 96.8 79-99 fL Mean Corpuscular Hemoglobin 30.7 27.0-33.0 pg Mean Corpuscular Hemoglobin Concent 31.7 L 32.0-36.0 g/dL Red Cell Distribution Width 17.4 H 11.0-15.5 % Platelet Count 99 L 130-400 K/uL Mean Platelet Volume 10.2 7.5-10.5 fL Nucleated Red Blood Cells 0.0 0.0-0.19 % Prothrombin Time 15.9 H 9.6-11.6 SEC Prothromb Time International Ratio 1.57 H 0.85-1.15 Sodium Level 137 136-145 mmol/L Potassium Level 3.8 3.5-5.1 mmol/L Chloride Level 106 101-111 mmol/L Carbon Dioxide Level 27 21-32 mmol/L Blood Urea Nitrogen 18 7-18 mg/dL Creatinine 0.7 0.5-1.0 mg/dL Glomerular Filtration Rate Calc 101 >90 mL/min Random Glucose 135 H 70-105 mg/dL Total Calcium 7.8 L 8.5-10.1 mg/dL Phosphorus Level 2.5 2.5-4.9 mg/dL Magnesium Level 1.60 L 1.80-2.40 mg/dL Total Bilirubin 0.6 0.2-1.0 mg/dL Aspartate Amino Transf (AST/SGOT) 32 10-37 U/L Alanine Aminotransferase (ALT/SGPT) 16 12-78 U/L Alkaline Phosphatase 115 50-136 U/L Ammonia 39 H 11-32 umol/L Total Protein 5.6 L 6.0-8.3 g/dL Albumin 1.9 L 3.5-5.0 g/dL B-Type Natriuretic Peptide 810 H 0-100 pg/mL Current Medications Medications (Trade) Dose Ordered Sig/Gregory Route PRN Reason Start Time Stop Time Status Last Admin Dose Admin Acetaminophen (TYLenol 325MG TAB) 650 mg Q6H PRN PO MILD PAIN (1-3) 08/29/25 10:00 09/28/25 09:59 Albuterol (DUOneb) 1 udvial Q6H PRN IH SHORTNESS OF BREATH 08/29/25 10:00 09/28/25 09:59 Calcium Gluconate (Calcium Gluc 1gm Vial) 1 gm ONCE IV 08/29/25 09:30 08/29/25 09:23 DC Dextrose (D50w) 50 ml AD PRN IV HYPOGLYCEMIA PROTOCOL 08/29/25 10:00 09/28/25 09:59 Dextrose/Sodium Chloride 1,000 ml @ 0 mls/hr AD IV 08/29/25 12:30 08/29/25 16:05 DC Glucagon (Glucagon 1mg Kit) 1 mg AD PRN IM HYPOGLYCEMIA PROTOCOL 08/29/25 10:00 09/28/25 09:59 Insulin Human Regular (humuLIN R 100 UNIT/ML 3ML) 5 unit ONCE IV 08/29/25 09:30 08/29/25 09:25 DC Insulin Human Regular (humuLIN R 100 UNIT/ML 3ML) INSULIN SLIDING SCAL... ACHS SQ 08/29/25 11:30 09/28/25 11:29 08/30/25 09:52 4 UNIT Insulin Human Regular 100 unit/ Sodium Chloride 101 ml @ 0 mls/hr PROTOCOL IV 08/29/25 12:30 08/29/25 16:05 DC Lactulose (Constulose 20gm/ 30ml Udcup) 20 gm TID PO 09/01/25 14:00 10/01/25 13:59 09/01/25 22:04 20 GM Magnesium Sulfate 50 ml @ 0 mls/hr PROTOCOL IV 08/29/25 12:30 08/29/25 16:05 DC Magnesium Sulfate 50 ml @ 0 mls/hr PROTOCOL IV 08/30/25 10:00 09/29/25 09:59 09/02/25 06:25 25 MLS/HR Magnesium Sulfate 50 ml @ 0 mls/hr PROTOCOL IV 09/02/25 13:30 09/02/25 13:04 DC Meropenem (Merrem 500mg) 500 mg Q24H IVPB 08/29/25 10:00 08/31/25 09:59 DC 08/30/25 09:46 500 MG Meropenem (Merrem 500mg) 500 mg Q24H IVPB 08/31/25 23:30 09/10/25 23:29 09/01/25 22:05 500 MG Midodrine (PROAMatine 5 MG TABLET) 10 mg BID PO 09/01/25 09:00 08/31/25 18:36 DC Midodrine (PROAMatine 5 MG TABLET) 10 mg TID PO 09/01/25 09:00 10/01/25 08:59 09/02/25 08:56 10 MG Morphine Sulfate (morPHINE 2MG SYG) 2 mg Q4H PRN IVP SEVERE PAIN (7-10) 09/01/25 05:30 09/08/25 05:29 09/02/25 12:57 2 MG Norepinephrine Bitartrate 32 mg/ Sodium Chloride 250 ml @ 0 mls/hr Q0M STAT IV 08/29/25 21:01 08/29/25 21:07 DC 08/29/25 21:13 0 MLS/HR Octreotide Acetate 1250 mcg/ Sodium Chloride 250 ml @ 0 mls/hr PROTOCOL IV 08/29/25 08:30 09/01/25 10:32 DC 08/31/25 10:18 5 MLS/HR Ondansetron HCl (zoFRAN 4MG INJ) 4 mg Q6H PRN IVP NAUSEA/VOMITING 08/29/25 09:30 09/28/25 09:29 09/01/25 22:42 4 MG Pantoprazole Sodium (PROTonix 40MG INJ) 40 mg BID IVP 09/01/25 21:00 10/01/25 20:59 09/02/25 08:56 40 MG Pantoprazole Sodium 80 mg/ Sodium Chloride 100 ml @ 10 mls/hr Q10H IV 08/29/25 08:30 09/01/25 10:32 DC 09/01/25 05:50 10 MLS/HR Pharmacy Profile Note (Pharmacy Communication) 1 each ONCE MISC 08/29/25 09:30 08/29/25 09:35 DC Pharmacy Profile Note (Pharmacy Communication) 1 each ONCE MISC 08/31/25 23:30 08/31/25 23:17 DC Potassium Chloride 100 ml @ 50 mls/hr AD PRN IV POTASSIUM PROTOCOL 08/29/25 12:30 09/28/25 12:29 09/02/25 06:26 50 MLS/HR Sodium Bicarbonate 150 meq/Dextrose 1,150 ml @ 125 mls/hr Q9H12M IVP 08/29/25 10:00 08/30/25 10:12 DC 08/30/25 08:07 125 MLS/HR Sodium Chloride 250 ml @ 0 mls/hr AD IV 08/29/25 17:30 09/28/25 17:29 Sodium Chloride 1,000 ml @ 0 mls/hr Q0M IV 08/29/25 16:00 08/29/25 16:03 DC Sodium Chloride 1,000 ml @ 0 mls/hr Q0M IV 08/29/25 16:00 09/01/25 08:01 DC 08/29/25 16:10 500 MLS/HR Sodium Chloride 1,000 ml @ 125 mls/hr Q8H IV 08/29/25 09:30 08/29/25 09:57 DC Sodium Chloride 1,000 ml @ 150 mls/hr Q6H40M IV 08/29/25 18:30 09/01/25 09:29 DC 08/31/25 16:16 150 MLS/HR Sodium Chloride 1,000 ml @ 200 mls/hr PROTOCOL IV 08/29/25 12:30 08/29/25 16:05 DC Sodium Chloride 1,000 ml @ 999 mls/hr Q1H1M IV 08/29/25 09:30 08/29/25 09:06 DC Thiamine HCl (Vitamin B-1) 200 mg Q12H IVP 08/29/25 09:30 09/02/25 09:30 DC 09/02/25 08:56 200 MG DIAGNOSTICS / RADIOLOGY: [ ] ASSESSMENT: Hypovolemic hypochloremic hyponatremia, POA, Improving Hemorrhagic shock - requiring vasopressor support, POA, Resolved Acute upper GI bleeding- Hematemesis, dark output from ileostomy bag, POA, Improving Severe hyperkalemia, POA, Resolved Hypokalemia, Not POA Hypophosphatemia, Not POA High anion gap metabolic acidosis, POA, Resolved Hyperammonemia, POA, Improving Lactic acidosis, POA, Resolved Hyperphosphatemia, POA, Resolved Acute renal failure - Prerenal Acute Kidney Injury, POA, Improving Starvation Ketoacidosis, POA Rule out occult sepsis, POA Recent extended hospitalization in [facility], 07/20/2025- 08/25/2025 for sepsis, acute abdomen, POA Severe Dehydration, POA, Improving History of esophageal varices, POA Decompensated liver cirrhosis, POA Hx of acute cholecystitis, s/p cholecystostomy tube placement on 08/02/2025. Perisplenic abscess, s/p CT-guided drainage placement on 08/09/2025. 2.7 x 2.2 x 5.1 cm infrasplenic collection History of gastritis, POA Hx of Generalized peritonitis with ESBL E coli infection, POA Moderate Protein calorie malnutrition POA History of bilious peritonitis with small colonic anastomosis perforation s/p diagnostic laparoscopy, abdominal washout, ileostomy creation by Dr. Gann, 07/21/2025 Hx of DM II, POA Recent colovesical fistula repair with sigmoid colon resection and anastomosis on PLAN: High anion gap metabolic acidosis, Hypovolemic hypochloremic hyponatremia, Severe hyperkalemia, Hyperphosphatemia - On presentation, patient's potassium was 6.8. While Phosphate 7.0. Sodium 119, chloride 87, carbon dioxide 13, consistent with high anion gap metabolic acidosis - EKG was done which showed Sinus rhythm. She received calcium gluconate as well as insulin for hyperkalemia. She also underwent emergent HD. Her potassium improved to 3.5 subsequently. Her sodium also improved to 134, chloride 96, CO2 31 (08/30). - Patient was started on sodium bicarbonate because of acidosis and bicarb deficit. Her BMP Bicarb today is 29. Bicarb drip has been discontinued as per nephrology. - Patient was receiving sodium chloride 150 mls/hr which has been temporarily held. - Total output in past 24 hours is 2235 vs 3325 input. - Monitor input and output as well as daily weights. - We will follow up with nephrology recommendations and repeat CMP, CBC and related labs in the morning. Hemorrhagic shock, Acute upper GI bleeding- Hematemesis, dark output from ileostomy bag - Patient has been weaned off Levophed drip. Hemodynamically stable - patient underwent EGD today. - Sandostatin drip stopped. - Pantoprazole 40mg IV bid x 24 hours then pantoprazole 40mg po daily - Clear fluids, if tolerating may advance to full liquids, and then soft bland diet. - Trend hemoglobin and keep it above 7. Patient's hemoglobin 9.9 (08/30) - Keep map above 65. Lactic acidosis, starvation acidosis, Suspected occult sepsis. - WBCs are 5.1 (08/31). - We will follow with blood culture and urine culture which are negative so far. -patient is continued on Merrem as per Infectious Disease recommendation Acute renal failure, Prerenal Acute Kidney Injury, Dehydration - On Presentation, patient's creatinine was 5, BUN 80. - FENa <0.2, Stone <20 - Urine microscopy showed Hyaline and granular casts - patient was started on NaCl 150mls/hr which has been stopped. - Bicarb drip has been discontinued as per nephrology. - patient is successfully weaned off Levophed - Patient received emergent hemodialysis session for elevated renal parameters as well as electrolyte derangements including Hyperkalemia and acidosis. - Her creatinine and BUN have improved to 1.0 and 16 respectively (08/31) - Transfuse as needed to keep Hb above 7 (Hb=9.0, 08/31/25) - Monitor input and output. Patient's total output in the past24 hours is 2070, versus 3950 input. - We will repeat a.m. labs and follow up with Nephrology recommendations. Hyperammonemia - On 09/01, ammonia levels are 51. Patient is started on lactulose. - Follow up with morning ammonia levels. Hypokalemia, Hypophosphatemia - Patient's potassium dropped to 2.9 and phosphate 1.8 today. 08/31/2025 - Patient is started on potassium phosphate IV. - We will follow up with Nephrology recommendation and repeat labs in the morning. GEN KAISER MD Sep 02, 2025 14:26
--- NOTE | 2025-09-02 15:17 | PN ---
GASTROENTEROLOGY PROGRESS NOTE Date of Visit: Sep 02, 2025 Time of Visit: 15:16 Events / Notes: [08/31/25: No acute events overnight. Patient's BP is are holding with some BP is at 90s/50s lowest BP of 80/48.. Remains afebrile. Patient has had a total of 540 mL of ileostomy output, 25 mL of drain output. WBC of 5.1, hemoglobin 9.0, platelets 130. Potassium 2.9, glucose 140, calcium 7.4, phosphorus 1.8, AST 46, alkaline phosphatase 138. Ammonia 34, total protein 5.7, albumin 2.1. Hepatitis profile negative. Patient off pressors at 1805. Will be started on midodrine. Patient awake, alert, and oriented in no acute distress. Daughter at bedside. Informed possible EGD evaluation in am if patient is able to be off pressors. They agreed. 09/02/25: Patient underwent EGD and was found to have small esophageal varices, scar in the lower 3rd of the esophagus, and portal hypertensive gastropathy. Normal examined duodenum. Results given to the patient. Recommended she f/u at her GI office in 1 week for further evaluation and possible need to reevaluate with EGD in 8-12 weeks. Recommend patient avoid any greasy foods, spicy foods, foods with tomatoes, carbonated beverages, caffeinated beverages, and chocolate. Patient and daughter verbalized understanding and agreement. ] Review of Systems: CONSTITUTIONAL: No malaise or change in sensation of wellbeing. ENMT: No rhinorrhea, otorrhea, sinus pain, ear ache. CARDIOVASCULAR: No angina, palpitations, orthopnea or paroxysmal dyspnea. RESPIRATORY: No SOB. GASTROINTESTINAL: No abdominal pain, nausea, vomiting, diarrhea, hematemesis, melena or change in the patient's habitual bowel movements consistency/number. GENITOURINARY: No dysuria, hematuria or change in bladder continence. MUSCULOSKELETAL: No new muscle pain or decrease in muscular strength. No new joint swelling, redness or tenderness. SKIN: No new rash. Physical Exam: GEN: Awake, alert, oriented in person, time and place, and in no acute distress. HEENT: No rhinorrhea. Oral mucosa is moist. CHEST: Lung auscultation revealed normal breath sounds bilaterally. CARDIAC:Heart sounds are regular. ABD: Soft, non-tender and not distended. No peritoneal signs on palpation. Normal bowel sounds. Ileostomy in place with watery output. EXT: No cyanosis or clubbing. No edema. SKIN: Intact. No rashes. NEURO: Alert and oriented to name, place and person.No focal motor deficits. Normal speech. Vital Signs (last 8hr) Date Time Temp Pulse Resp B/P (MAP) Pulse Ox O2 Delivery O2 Flow Rate FiO2 09/02/25 10:10 98.4 56 20 118/71 96 Room Air 21 09/02/25 08:00 98.8 63 21 123/66 89 Room Air Laboratory: [ ] Laboratory: Test 09/02/25 10:55 09/02/25 06:00 09/02/25 05:05 09/01/25 12:41 Range/Units Whole Blood Glucose 107 70-110 MG/DL Bedside Glucose Comment Notified Nurse White Blood Count 4.4 #L 4.8-10.8 K/uL Red Blood Count 2.77 L 4.00-5.50 MIL/uL Hemoglobin 8.5 L 12.0-16.0 g/dL Hematocrit 26.8 L 36-48 % Mean Corpuscular Volume 96.8 79-99 fL Mean Corpuscular Hemoglobin 30.7 27.0-33.0 pg Mean Corpuscular Hemoglobin Concent 31.7 L 32.0-36.0 g/dL Red Cell Distribution Width 17.4 H 11.0-15.5 % Platelet Count 99 L 130-400 K/uL Mean Platelet Volume 10.2 7.5-10.5 fL Nucleated Red Blood Cells 0.0 0.0-0.19 % Prothrombin Time 15.9 H 9.6-11.6 SEC Prothromb Time International Ratio 1.57 H 0.85-1.15 Sodium Level 137 136-145 mmol/L Potassium Level 3.8 3.5-5.1 mmol/L Chloride Level 106 101-111 mmol/L Carbon Dioxide Level 27 21-32 mmol/L Blood Urea Nitrogen 18 7-18 mg/dL Creatinine 0.7 0.5-1.0 mg/dL Glomerular Filtration Rate Calc 101 >90 mL/min Random Glucose 135 H 70-105 mg/dL Total Calcium 7.8 L 8.5-10.1 mg/dL Phosphorus Level 2.5 2.5-4.9 mg/dL Magnesium Level 1.60 L 1.80-2.40 mg/dL Total Bilirubin 0.6 0.2-1.0 mg/dL Aspartate Amino Transf (AST/SGOT) 32 10-37 U/L Alanine Aminotransferase (ALT/SGPT) 16 12-78 U/L Alkaline Phosphatase 115 50-136 U/L Ammonia 39 H 11-32 umol/L Total Protein 5.6 L 6.0-8.3 g/dL Albumin 1.9 L 3.5-5.0 g/dL B-Type Natriuretic Peptide 810 H 0-100 pg/mL Current Medications Medications (Trade) Dose Ordered Sig/Gregory Route PRN Reason Start Time Stop Time Status Last Admin Dose Admin Acetaminophen (TYLenol 325MG TAB) 650 mg Q6H PRN PO MILD PAIN (1-3) 08/29/25 10:00 09/28/25 09:59 Albuterol (DUOneb) 1 udvial Q6H PRN IH SHORTNESS OF BREATH 08/29/25 10:00 09/28/25 09:59 Calcium Gluconate (Calcium Gluc 1gm Vial) 1 gm ONCE IV 08/29/25 09:30 08/29/25 09:23 DC Dextrose (D50w) 50 ml AD PRN IV HYPOGLYCEMIA PROTOCOL 08/29/25 10:00 09/28/25 09:59 Dextrose/Sodium Chloride 1,000 ml @ 0 mls/hr AD IV 08/29/25 12:30 08/29/25 16:05 DC Glucagon (Glucagon 1mg Kit) 1 mg AD PRN IM HYPOGLYCEMIA PROTOCOL 08/29/25 10:00 09/28/25 09:59 Insulin Human Regular (humuLIN R 100 UNIT/ML 3ML) 5 unit ONCE IV 08/29/25 09:30 08/29/25 09:25 DC Insulin Human Regular (humuLIN R 100 UNIT/ML 3ML) INSULIN SLIDING SCAL... ACHS SQ 08/29/25 11:30 09/28/25 11:29 08/30/25 09:52 4 UNIT Insulin Human Regular 100 unit/ Sodium Chloride 101 ml @ 0 mls/hr PROTOCOL IV 08/29/25 12:30 08/29/25 16:05 DC Lactulose (Constulose 20gm/ 30ml Udcup) 20 gm TID PO 09/01/25 14:00 10/01/25 13:59 09/02/25 14:29 20 GM Magnesium Sulfate 50 ml @ 0 mls/hr PROTOCOL IV 08/29/25 12:30 08/29/25 16:05 DC Magnesium Sulfate 50 ml @ 0 mls/hr PROTOCOL IV 08/30/25 10:00 09/29/25 09:59 09/02/25 06:25 25 MLS/HR Magnesium Sulfate 50 ml @ 0 mls/hr PROTOCOL IV 09/02/25 13:30 09/02/25 13:04 DC Meropenem (Merrem 500mg) 500 mg Q24H IVPB 08/29/25 10:00 08/31/25 09:59 DC 08/30/25 09:46 500 MG Meropenem (Merrem 500mg) 500 mg Q24H IVPB 08/31/25 23:30 09/10/25 23:29 09/01/25 22:05 500 MG Midodrine (PROAMatine 5 MG TABLET) 10 mg BID PO 09/01/25 09:00 08/31/25 18:36 DC Midodrine (PROAMatine 5 MG TABLET) 10 mg TID PO 09/01/25 09:00 10/01/25 08:59 09/02/25 14:29 10 MG Morphine Sulfate (morPHINE 2MG SYG) 2 mg Q4H PRN IVP SEVERE PAIN (7-10) 09/01/25 05:30 09/08/25 05:29 09/02/25 12:57 2 MG Norepinephrine Bitartrate 32 mg/ Sodium Chloride 250 ml @ 0 mls/hr Q0M STAT IV 08/29/25 21:01 08/29/25 21:07 DC 08/29/25 21:13 0 MLS/HR Octreotide Acetate 1250 mcg/ Sodium Chloride 250 ml @ 0 mls/hr PROTOCOL IV 08/29/25 08:30 09/01/25 10:32 DC 08/31/25 10:18 5 MLS/HR Ondansetron HCl (zoFRAN 4MG INJ) 4 mg Q6H PRN IVP NAUSEA/VOMITING 08/29/25 09:30 09/28/25 09:29 09/01/25 22:42 4 MG Pantoprazole Sodium (PROTonix 40MG INJ) 40 mg BID IVP 09/01/25 21:00 10/01/25 20:59 09/02/25 08:56 40 MG Pantoprazole Sodium 80 mg/ Sodium Chloride 100 ml @ 10 mls/hr Q10H IV 08/29/25 08:30 09/01/25 10:32 DC 09/01/25 05:50 10 MLS/HR Pharmacy Profile Note (Pharmacy Communication) 1 each ONCE MISC 08/29/25 09:30 08/29/25 09:35 DC Pharmacy Profile Note (Pharmacy Communication) 1 each ONCE MISC 08/31/25 23:30 08/31/25 23:17 DC Potassium Chloride 100 ml @ 50 mls/hr AD PRN IV POTASSIUM PROTOCOL 08/29/25 12:30 09/28/25 12:29 09/02/25 06:26 50 MLS/HR Sodium Bicarbonate 150 meq/Dextrose 1,150 ml @ 125 mls/hr Q9H12M IVP 08/29/25 10:00 08/30/25 10:12 DC 08/30/25 08:07 125 MLS/HR Sodium Chloride 250 ml @ 0 mls/hr AD IV 08/29/25 17:30 09/28/25 17:29 Sodium Chloride 1,000 ml @ 0 mls/hr Q0M IV 08/29/25 16:00 08/29/25 16:03 DC Sodium Chloride 1,000 ml @ 0 mls/hr Q0M IV 08/29/25 16:00 09/01/25 08:01 DC 08/29/25 16:10 500 MLS/HR Sodium Chloride 1,000 ml @ 125 mls/hr Q8H IV 08/29/25 09:30 08/29/25 09:57 DC Sodium Chloride 1,000 ml @ 150 mls/hr Q6H40M IV 08/29/25 18:30 09/01/25 09:29 DC 08/31/25 16:16 150 MLS/HR Sodium Chloride 1,000 ml @ 200 mls/hr PROTOCOL IV 08/29/25 12:30 08/29/25 16:05 DC Sodium Chloride 1,000 ml @ 999 mls/hr Q1H1M IV 08/29/25 09:30 08/29/25 09:06 DC Thiamine HCl (Vitamin B-1) 200 mg Q12H IVP 08/29/25 09:30 09/02/25 09:30 DC 09/02/25 08:56 200 MG Diagnostics / Radiology: [COPY/PASTE HERE IF NO REPORTS PLEASE DELETE SECTION] Assessment: [Esophageal varices Liver cirrhosis Ileostomy status Hypertension Type 2 diabetes ] Plan: [ Case discussed with Dr. Adams. Pantoprazole 40mg IV bid x 24 hours then pantoprazole 40mg po daily Clear fluids, if tolerating may advance to full liquids, and then soft bland diet. Please call with questions, concerns, and change in clinical status and any signs of any overt GI bleed Please have patient f/u at her GI office 1 week from discharge. Please schedule her appointment. Thank you for this consult. NIKKI MUNOZP Sep 02, 2025 15:17
--- NOTE | 2025-09-02 16:02 | PN ---
This is a 55year old female status post anastomotic leak with laparoscopic loop ileostomy performed by Dr. Gann who presented back for severe dehydration with acute renal injury Interval history: This 55-year-old female seen in her room resting Patient tolerating diet Still patient with a very low protein intake Labs and vitals appear stable Cholecystostomy tube removed Physical exam General: Awake alert and oriented Heart: Regular rate and rhythm} Lungs: Clear to auscultation no distress Abdomen: [Soft, nontender, nondistended Assessment : This is a 55year old female status post anastomotic leak with laparoscopic loop ileostomy performed by Dr. Gann who presented back for severe dehydration with acute renal injury Plan: At this point in time patient continues to do well with intake Lengthy conversation had with the patient about the importance of protein intake If patient is able to tolerate protein intake and continue with relatively stable oral intake of meals there may be no need for gastrostomy tube placement at this time Dr. Gann to be updated on patient's status Surgical case has been discussed with my supervising physician in the above plan was formulated and agreed upon We appreciate the hospitalist team for us to participate in patient's care. Greater than 45 minutes of time spent patient, reviewing chart, working on documentation Vitals/Labs Vital Signs Date Time Temp Pulse Resp B/P (MAP) Pulse Ox O2 Delivery O2 Flow Rate FiO2 09/02/25 10:10 98.4 56 20 118/71 96 Room Air 21 09/01/25 20:00 0 Laboratory Tests 09/02/25 05:05 09/02/25 06:00 Medications Current Medications Octreotide Acetate 50 mcg ONCE ONCE IV Last administered on 08/29/25at 09:02; Start 08/29/25 at 08:30; Stop 08/29/25 at 08:31; Status DC Octreotide Acetate 1250 mcg/ Sodium Chloride 250 ml @ 0 mls/hr PROTOCOL IV Last administered on 08/31/25at 10:18; Start 08/29/25 at 08:30; Stop 09/01/25 at 10:32; Status DC Pantoprazole Sodium 80 mg ONCE ONCE IVP Last administered on 08/29/25at 09:02; Start 08/29/25 at 08:30; Stop 08/29/25 at 08:31; Status DC Pantoprazole Sodium 80 mg/ Sodium Chloride 100 ml @ 10 mls/hr Q10H IV Last administered on 09/01/25at 05:50; Start 08/29/25 at 08:30; Stop 09/01/25 at 10:32; Status DC Promethazine HCl 25 mg ONCE ONCE IM Last administered on 08/29/25at 09:07; Start 08/29/25 at 08:30; Stop 08/29/25 at 08:33; Status DC Sodium Chloride 1,000 ml @ 999 mls/hr Q1H1M IV; Start 08/29/25 at 09:30; Stop 08/29/25 at 09:06; Status DC Calcium Gluconate 1 gm/Sodium Chloride 110 ml @ 110 mls/hr ONCE ONCE IV Last administered on 08/29/25at 09:41; Start 08/29/25 at 09:30; Stop 08/29/25 at 10:29; Status DC Dextrose 50 ml ONCE ONCE IV; Start 08/29/25 at 09:30; Stop 08/29/25 at 09:27; Status DC Insulin Human Regular 5 unit ONCE ONCE IV Last administered on 08/29/25at 09:57; Start 08/29/25 at 09:30; Stop 08/29/25 at 09:31; Status DC Albuterol Sulfate 10 mg ONCE ONCE IH Last administered on 08/29/25at 09:37; Start 08/29/25 at 09:30; Stop 08/29/25 at 09:31; Status DC Lactulose 200 gm ONCE ONCE [place]; Start 08/29/25 at 09:30; Stop 08/29/25 at 09:36; Status DC Calcium Gluconate 1 gm ONCE IV; Start 08/29/25 at 09:30; Stop 08/29/25 at 09:23; Status DC Sodium Chloride 1,000 ml @ 125 mls/hr Q8H IV; Start 08/29/25 at 09:30; Stop 08/29/25 at 09:57; Status DC Insulin Human Regular 5 unit ONCE IV; Start 08/29/25 at 09:30; Stop 08/29/25 at 09:25; Status DC Dextrose 50 ml ONCE ONCE IV Last administered on 08/29/25at 09:47; Start 08/29/25 at 09:30; Stop 08/29/25 at 09:31; Status DC Sodium Bicarbonate 50 meq ONCE ONCE IV Last administered on 08/29/25at 09:47; Start 08/29/25 at 09:30; Stop 08/29/25 at 09:31; Status DC Pharmacy Profile Note 1 each ONCE MISC; Start 08/29/25 at 09:30; Stop 08/29/25 at 09:35; Status DC Ondansetron HCl 4 mg Q6H PRN IVP Last administered on 09/01/25at 22:42; Start 08/29/25 at 09:30; Stop 09/28/25 at 09:29 Thiamine HCl 200 mg Q12H IVP Last administered on 09/02/25at 08:56; Start 08/29/25 at 09:30; Stop 09/02/25 at 09:30; Status DC Meropenem 500 mg Q24H IVPB Last administered on 08/30/25at 09:46; Start 08/29/25 at 10:00; Stop 08/31/25 at 09:59; Status DC Sodium Chloride 1,000 ml @ 0 mls/hr ONCE ONCE IV Last administered on 08/29/25at 09:47; Start 08/29/25 at 10:00; Stop 08/29/25 at 10:01; Status DC Dextrose 50 ml AD PRN IV; Start 08/29/25 at 10:00; Stop 09/28/25 at 09:59 Glucagon 1 mg AD PRN IM; Start 08/29/25 at 10:00; Stop 09/28/25 at 09:59 Acetaminophen 650 mg Q6H PRN PO; Start 08/29/25 at 10:00; Stop 09/28/25 at 09:59 Albuterol 1 udvial Q6H PRN IH; Start 08/29/25 at 10:00; Stop 09/28/25 at 09:59 Sodium Bicarbonate 50 meq ONCE ONCE IV Last administered on 08/29/25at 10:12; Start 08/29/25 at 10:00; Stop 08/29/25 at 10:05; Status DC Sodium Bicarbonate 150 meq/Dextrose 1,150 ml @ 125 mls/hr Q9H12M IVP Last administered on 08/30/25at 08:07; Start 08/29/25 at 10:00; Stop 08/30/25 at 10:12; Status DC Insulin Human Regular INSULIN SLIDING SCAL... ACHS SQ Last administered on 08/30/25at 09:52; Start 08/29/25 at 11:30; Stop 09/28/25 at 11:29 Sodium Chloride 1,000 ml @ 0 mls/hr ONCE ONCE IV Last administered on 08/29/25at 13:44; Start 08/29/25 at 11:00; Stop 08/29/25 at 11:06; Status DC Sodium Chloride 1,000 ml @ 200 mls/hr PROTOCOL IV; Start 08/29/25 at 12:30; Stop 08/29/25 at 16:05; Status DC Magnesium Sulfate 50 ml @ 0 mls/hr PROTOCOL IV; Start 08/29/25 at 12:30; Stop 08/29/25 at 16:05; Status DC Insulin Human Regular 100 unit/ Sodium Chloride 101 ml @ 0 mls/hr PROTOCOL IV; Start 08/29/25 at 12:30; Stop 08/29/25 at 16:05; Status DC Dextrose/Sodium Chloride 1,000 ml @ 0 mls/hr AD IV; Start 08/29/25 at 12:30; Stop 08/29/25 at 16:05; Status DC Potassium Chloride 100 ml @ 50 mls/hr AD PRN IV Last administered on 09/02/25at 06:26; Start 08/29/25 at 12:30; Stop 09/28/25 at 12:29 Lidocaine HCl 20 ml STK-MED ONCE .ROUTE; Start 08/29/25 at 14:24; Stop 08/29/25 at 14:25; Status DC Lidocaine HCl 20 ml STK-MED ONCE .ROUTE Last administered on 08/29/25at 15:59; Start 08/29/25 at 14:25; Stop 08/29/25 at 14:25; Status DC Sodium Chloride 1,000 ml @ 0 mls/hr Q0M IV; Start 08/29/25 at 16:00; Stop 08/29/25 at 16:03; Status DC Sodium Chloride 1,000 ml @ 0 mls/hr Q0M IV Last administered on 08/29/25at 16:10; Start 08/29/25 at 16:00; Stop 09/01/25 at 08:01; Status DC Sodium Chloride 250 ml @ 0 mls/hr AD IV; Start 08/29/25 at 17:30; Stop 09/28/25 at 17:29 Sodium Chloride 1,000 ml @ 0 mls/hr ONCE ONCE IV Last administered on 08/29/25at 19:57; Start 08/29/25 at 17:30; Stop 08/29/25 at 17:35; Status DC Sodium Chloride 1,000 ml @ 150 mls/hr Q6H40M IV Last administered on 08/31/25at 16:16; Start 08/29/25 at 18:30; Stop 09/01/25 at 09:29; Status DC Dexmedetomidine/ Sodium Chloride 400 mcg STK-MED ONCE IV; Start 08/29/25 at 19:56; Stop 08/29/25 at 19:56; Status DC Norepinephrine Bitartrate 32 mg/ Sodium Chloride 250 ml @ 0 mls/hr Q0M STAT IV Last administered on 08/29/25at 21:13; Start 08/29/25 at 21:01; Stop 08/29/25 at 21:07; Status DC Magnesium Sulfate 50 ml @ 0 mls/hr PROTOCOL IV Last administered on 09/02/25at 06:25; Start 08/30/25 at 10:00; Stop 09/29/25 at 09:59 Morphine Sulfate 2 mg ONCE ONCE IVP Last administered on 08/31/25at 02:24; Start 08/31/25 at 02:30; Stop 08/31/25 at 02:31; Status DC Potassium Phosphate 250 ml @ 42 mls/hr PROTOCOL ONCE IV Last administered on 08/31/25at 10:11; Start 08/31/25 at 09:00; Stop 08/31/25 at 14:57; Status DC Multivitamins/ Minerals 10 ml/ Chromium/Copper/ Manganese/Zinc 3 ml/Amino Acids/ Electrolytes/ Dextrose 2,000 ml @ 83 mls/hr ONCE ONCE IV Last administered on 08/31/25at 20:53; Start 08/31/25 at 20:00; Stop 09/01/25 at 11:25; Status DC Midodrine 10 mg BID PO; Start 09/01/25 at 09:00; Stop 08/31/25 at 18:36; Status DC Midodrine 10 mg ONCE ONCE PO Last administered on 08/31/25at 18:36; Start 08/31/25 at 18:30; Stop 08/31/25 at 18:31; Status DC Midodrine 10 mg TID PO Last administered on 09/02/25at 14:29; Start 09/01/25 at 09:00; Stop 10/01/25 at 08:59 Pharmacy Profile Note 1 each ONCE MISC; Start 08/31/25 at 23:30; Stop 08/31/25 at 23:17; Status DC Meropenem 500 mg Q24H IVPB Last administered on 09/01/25at 22:05; Start 08/31/25 at 23:30; Stop 09/10/25 at 23:29 Morphine Sulfate 2 mg Q4H PRN IVP Last administered on 09/02/25at 12:57; Start 09/01/25 at 05:30; Stop 09/08/25 at 05:29 Propofol 200 mg STK-MED ONCE IV; Start 09/01/25 at 09:53; Stop 09/01/25 at 09:53; Status DC Ketamine HCl 50 mg STK-MED ONCE .ROUTE; Start 09/01/25 at 09:53; Stop 09/01/25 at 09:53; Status DC Pantoprazole Sodium 40 mg BID IVP Last administered on 09/02/25at 08:56; Start 09/01/25 at 21:00; Stop 10/01/25 at 20:59 Lactulose 20 gm TID PO Last administered on 09/02/25at 14:29; Start 09/01/25 at 14:00; Stop 10/01/25 at 13:59 Multivitamins/ Minerals 10 ml/ Amino Acids/ Electrolytes/ Dextrose 2,000 ml @ 83 mls/hr ONCE ONCE IV Last administered on 09/01/25at 22:13; Start 09/01/25 at 20:00; Stop 09/02/25 at 20:05 Magnesium Sulfate 50 ml @ 0 mls/hr PROTOCOL IV; Start 09/02/25 at 13:30; Stop 09/02/25 at 13:04; Status DC BENEDICTO OBRIEN Jr. PAC Sep 02, 2025 16:02
--- NOTE | 2025-09-02 16:03 | PN ---
This is an 83-year-old female with concerns of possible cholecystitis Interval history: This 83-year-old female seen in her room resting Patient tolerating diet HIDA scan results pending Physical exam General: Awake alert and oriented Heart: Regular rate and rhythm} Lungs: Clear to auscultation no distress Abdomen: [Soft, nontender, nondistended Assessment : This is an 83-year-old female with concerns for cholecystitis Plan: At this point in time we will continue to await HIDA scan findings Patient to continue with diet as tolerated If consistent with cholecystitis cardiac clearance will be needed Dr. Ray to be updated in patient's status Surgical case has been discussed with my supervising physician in the above plan was formulated and agreed upon We appreciate the hospitalist team for us to participate in patient's care. Greater than 45 minutes of time spent patient, reviewing chart, working on documentation Vitals/Labs Vital Signs Date Time Temp Pulse Resp B/P (MAP) Pulse Ox O2 Delivery O2 Flow Rate FiO2 09/02/25 10:10 98.4 56 20 118/71 96 Room Air 21 09/01/25 20:00 0 Laboratory Tests 09/02/25 05:05 09/02/25 06:00 Medications Current Medications Octreotide Acetate 50 mcg ONCE ONCE IV Last administered on 08/29/25at 09:02; Start 08/29/25 at 08:30; Stop 08/29/25 at 08:31; Status DC Octreotide Acetate 1250 mcg/ Sodium Chloride 250 ml @ 0 mls/hr PROTOCOL IV Last administered on 08/31/25at 10:18; Start 08/29/25 at 08:30; Stop 09/01/25 at 10:32; Status DC Pantoprazole Sodium 80 mg ONCE ONCE IVP Last administered on 08/29/25at 09:02; Start 08/29/25 at 08:30; Stop 08/29/25 at 08:31; Status DC Pantoprazole Sodium 80 mg/ Sodium Chloride 100 ml @ 10 mls/hr Q10H IV Last administered on 09/01/25at 05:50; Start 08/29/25 at 08:30; Stop 09/01/25 at 10:32; Status DC Promethazine HCl 25 mg ONCE ONCE IM Last administered on 08/29/25at 09:07; Start 08/29/25 at 08:30; Stop 08/29/25 at 08:33; Status DC Sodium Chloride 1,000 ml @ 999 mls/hr Q1H1M IV; Start 08/29/25 at 09:30; Stop 08/29/25 at 09:06; Status DC Calcium Gluconate 1 gm/Sodium Chloride 110 ml @ 110 mls/hr ONCE ONCE IV Last administered on 08/29/25at 09:41; Start 08/29/25 at 09:30; Stop 08/29/25 at 10:29; Status DC Dextrose 50 ml ONCE ONCE IV; Start 08/29/25 at 09:30; Stop 08/29/25 at 09:27; Status DC Insulin Human Regular 5 unit ONCE ONCE IV Last administered on 08/29/25at 09:57; Start 08/29/25 at 09:30; Stop 08/29/25 at 09:31; Status DC Albuterol Sulfate 10 mg ONCE ONCE IH Last administered on 08/29/25at 09:37; Start 08/29/25 at 09:30; Stop 08/29/25 at 09:31; Status DC Lactulose 200 gm ONCE ONCE IL; Start 08/29/25 at 09:30; Stop 08/29/25 at 09:36; Status DC Calcium Gluconate 1 gm ONCE IV; Start 08/29/25 at 09:30; Stop 08/29/25 at 09:23; Status DC Sodium Chloride 1,000 ml @ 125 mls/hr Q8H IV; Start 08/29/25 at 09:30; Stop 08/29/25 at 09:57; Status DC Insulin Human Regular 5 unit ONCE IV; Start 08/29/25 at 09:30; Stop 08/29/25 at 09:25; Status DC Dextrose 50 ml ONCE ONCE IV Last administered on 08/29/25at 09:47; Start 08/29/25 at 09:30; Stop 08/29/25 at 09:31; Status DC Sodium Bicarbonate 50 meq ONCE ONCE IV Last administered on 08/29/25at 09:47; Start 08/29/25 at 09:30; Stop 08/29/25 at 09:31; Status DC Pharmacy Profile Note 1 each ONCE MISC; Start 08/29/25 at 09:30; Stop 08/29/25 at 09:35; Status DC Ondansetron HCl 4 mg Q6H PRN IVP Last administered on 09/01/25at 22:42; Start 08/29/25 at 09:30; Stop 09/28/25 at 09:29 Thiamine HCl 200 mg Q12H IVP Last administered on 09/02/25at 08:56; Start 08/29/25 at 09:30; Stop 09/02/25 at 09:30; Status DC Meropenem 500 mg Q24H IVPB Last administered on 08/30/25at 09:46; Start 08/29/25 at 10:00; Stop 08/31/25 at 09:59; Status DC Sodium Chloride 1,000 ml @ 0 mls/hr ONCE ONCE IV Last administered on 08/29/25at 09:47; Start 08/29/25 at 10:00; Stop 08/29/25 at 10:01; Status DC Dextrose 50 ml AD PRN IV; Start 08/29/25 at 10:00; Stop 09/28/25 at 09:59 Glucagon 1 mg AD PRN IM; Start 08/29/25 at 10:00; Stop 09/28/25 at 09:59 Acetaminophen 650 mg Q6H PRN PO; Start 08/29/25 at 10:00; Stop 09/28/25 at 09:59 Albuterol 1 udvial Q6H PRN IH; Start 08/29/25 at 10:00; Stop 09/28/25 at 09:59 Sodium Bicarbonate 50 meq ONCE ONCE IV Last administered on 08/29/25at 10:12; Start 08/29/25 at 10:00; Stop 08/29/25 at 10:05; Status DC Sodium Bicarbonate 150 meq/Dextrose 1,150 ml @ 125 mls/hr Q9H12M IVP Last administered on 08/30/25at 08:07; Start 08/29/25 at 10:00; Stop 08/30/25 at 10:12; Status DC Insulin Human Regular INSULIN SLIDING SCAL... ACHS SQ Last administered on 08/30/25at 09:52; Start 08/29/25 at 11:30; Stop 09/28/25 at 11:29 Sodium Chloride 1,000 ml @ 0 mls/hr ONCE ONCE IV Last administered on 08/29/25at 13:44; Start 08/29/25 at 11:00; Stop 08/29/25 at 11:06; Status DC Sodium Chloride 1,000 ml @ 200 mls/hr PROTOCOL IV; Start 08/29/25 at 12:30; Stop 08/29/25 at 16:05; Status DC Magnesium Sulfate 50 ml @ 0 mls/hr PROTOCOL IV; Start 08/29/25 at 12:30; Stop 08/29/25 at 16:05; Status DC Insulin Human Regular 100 unit/ Sodium Chloride 101 ml @ 0 mls/hr PROTOCOL IV; Start 08/29/25 at 12:30; Stop 08/29/25 at 16:05; Status DC Dextrose/Sodium Chloride 1,000 ml @ 0 mls/hr AD IV; Start 08/29/25 at 12:30; Stop 08/29/25 at 16:05; Status DC Potassium Chloride 100 ml @ 50 mls/hr AD PRN IV Last administered on 09/02/25at 06:26; Start 08/29/25 at 12:30; Stop 09/28/25 at 12:29 Lidocaine HCl 20 ml STK-MED ONCE .ROUTE; Start 08/29/25 at 14:24; Stop 08/29/25 at 14:25; Status DC Lidocaine HCl 20 ml STK-MED ONCE .ROUTE Last administered on 08/29/25at 15:59; Start 08/29/25 at 14:25; Stop 08/29/25 at 14:25; Status DC Sodium Chloride 1,000 ml @ 0 mls/hr Q0M IV; Start 08/29/25 at 16:00; Stop 08/29/25 at 16:03; Status DC Sodium Chloride 1,000 ml @ 0 mls/hr Q0M IV Last administered on 08/29/25at 16:10; Start 08/29/25 at 16:00; Stop 09/01/25 at 08:01; Status DC Sodium Chloride 250 ml @ 0 mls/hr AD IV; Start 08/29/25 at 17:30; Stop 09/28/25 at 17:29 Sodium Chloride 1,000 ml @ 0 mls/hr ONCE ONCE IV Last administered on 08/29/25at 19:57; Start 08/29/25 at 17:30; Stop 08/29/25 at 17:35; Status DC Sodium Chloride 1,000 ml @ 150 mls/hr Q6H40M IV Last administered on 08/31/25at 16:16; Start 08/29/25 at 18:30; Stop 09/01/25 at 09:29; Status DC Dexmedetomidine/ Sodium Chloride 400 mcg STK-MED ONCE IV; Start 08/29/25 at 19:56; Stop 08/29/25 at 19:56; Status DC Norepinephrine Bitartrate 32 mg/ Sodium Chloride 250 ml @ 0 mls/hr Q0M STAT IV Last administered on 08/29/25at 21:13; Start 08/29/25 at 21:01; Stop 08/29/25 at 21:07; Status DC Magnesium Sulfate 50 ml @ 0 mls/hr PROTOCOL IV Last administered on 09/02/25at 06:25; Start 08/30/25 at 10:00; Stop 09/29/25 at 09:59 Morphine Sulfate 2 mg ONCE ONCE IVP Last administered on 08/31/25at 02:24; Start 08/31/25 at 02:30; Stop 08/31/25 at 02:31; Status DC Potassium Phosphate 250 ml @ 42 mls/hr PROTOCOL ONCE IV Last administered on 08/31/25at 10:11; Start 08/31/25 at 09:00; Stop 08/31/25 at 14:57; Status DC Multivitamins/ Minerals 10 ml/ Chromium/Copper/ Manganese/Zinc 3 ml/Amino Acids/ Electrolytes/ Dextrose 2,000 ml @ 83 mls/hr ONCE ONCE IV Last administered on 08/31/25at 20:53; Start 08/31/25 at 20:00; Stop 09/01/25 at 11:25; Status DC Midodrine 10 mg BID PO; Start 09/01/25 at 09:00; Stop 08/31/25 at 18:36; Status DC Midodrine 10 mg ONCE ONCE PO Last administered on 08/31/25at 18:36; Start 08/31/25 at 18:30; Stop 08/31/25 at 18:31; Status DC Midodrine 10 mg TID PO Last administered on 09/02/25at 14:29; Start 09/01/25 at 09:00; Stop 10/01/25 at 08:59 Pharmacy Profile Note 1 each ONCE MISC; Start 08/31/25 at 23:30; Stop 08/31/25 at 23:17; Status DC Meropenem 500 mg Q24H IVPB Last administered on 09/01/25at 22:05; Start 08/31/25 at 23:30; Stop 09/10/25 at 23:29 Morphine Sulfate 2 mg Q4H PRN IVP Last administered on 09/02/25at 12:57; Start 09/01/25 at 05:30; Stop 09/08/25 at 05:29 Propofol 200 mg STK-MED ONCE IV; Start 09/01/25 at 09:53; Stop 09/01/25 at 09:53; Status DC Ketamine HCl 50 mg STK-MED ONCE .ROUTE; Start 09/01/25 at 09:53; Stop 09/01/25 at 09:53; Status DC Pantoprazole Sodium 40 mg BID IVP Last administered on 09/02/25at 08:56; Start 09/01/25 at 21:00; Stop 10/01/25 at 20:59 Lactulose 20 gm TID PO Last administered on 09/02/25at 14:29; Start 09/01/25 at 14:00; Stop 10/01/25 at 13:59 Multivitamins/ Minerals 10 ml/ Amino Acids/ Electrolytes/ Dextrose 2,000 ml @ 83 mls/hr ONCE ONCE IV Last administered on 09/01/25at 22:13; Start 09/01/25 at 20:00; Stop 09/02/25 at 20:05 Magnesium Sulfate 50 ml @ 0 mls/hr PROTOCOL IV; Start 09/02/25 at 13:30; Stop 09/02/25 at 13:04; Status DC BENEDICTO OBRIEN Jr. PAC Sep 02, 2025 16:03
--- NOTE | 2025-09-02 21:34 | PN ---
[facility] PROGRESS NOTE Date Patient Seen: Sep 02, 2025 Time of Visit: 21:21 Supervising Physician: Brent NELSON MD Primary Care Physician: Jes Olivera Outpatient Specialists: [ ] Inpatient Consults: [facility] PROBLEM LIST: GI bleed in the presence of esophageal varices, resolved S/P EGD 09/01/25 small< 5 mm esophageal varices., scarring in the lower 3rd of the esophagus, portal hypertensive gastropathy, biopsied. Severe Malnutrition POA, now on PPN Acute decompensated liver cirrhosis, improving Hyperammonemia, improved Moderate protein malnutrition Severe dehydration POA, resolved Hyperglycemia in the presence of type 2 diabetes mellitus, POA hx of acute cholecystitis, s/p cholecystostomy tube to right upper quadrant placement on 08/02/2025. Perisplenic abscess, s/p CT-guided drainage placement on 08/09/2025. History of bilious peritonitis with small colonic anastomosis perforation s/p diagnostic laparoscopy, abdominal washout, ileostomy creation by Dr. Gann, 07/21/2025 Hx of Generalized peritonitis with ESBL E coli infection, POA Recent colovesical fistula repair with sigmoid colon resection and anastomosis on INTERVAL HISTORY: Chart reviewed including all laboratory and imaging results. Patient is awake alert and oriented x3. In good spirits. Denies chest pain palpitations or shortness for breath. She has remained hemodynamically stable saturating 95% on room air and afebrile. She continues on PPN for now for nutrition. Per GI okay to advance to GI soft bland diet. We will need to reevaluate tolerance of diet. If pt continues with poor oral intake General surgery has recommended a possible Gtube for enteral nutrition. We will monitor for signs of poor oral intake or poor food tolerance. For now patient is able to downgrade from ICU. Plan: Per GI advance diet to soft bland Follow General surgery recommendations Monitor for signs of fluid intolerance Monitor electrolytes and replace accordingly PT to eval and treat This per per primary team REVIEW OF SYSTEMS: General:+ generalized weakness Neurological: No fainting episodes or seizures. HEENT: No nasal congestion or nasal secretion. Respiratory: No cough, shortness of breath, or wheezing Cardiac: No chest pain or palpitations. Gastrointestinal: No vomiting or diarrhea. Poor appetite Genitourinary: No dysuria hematuria. Skin: No rashes or lesions. Hematological: No bruises or bleeding. Musculoskeletal: No joint pains or arthralgias. Psychiatric: No depression or panic attacks. PHYSICAL EXAM: GENERAL: Chronically ill, weak, debilitated, malnourished HEENT: EOMI, Sclera non icteric, dry mucosa NECK: Supple, no JVD, trachea midline LUNGS: Clear breath sounds bilaterally. No wheezes HEART: Regular rate and rhythm. Normal S1 and S2, without murmurs ABD: Abdomen soft, nontender. Bowel sounds present, right upper quadrant cholecystostomy tube, left upper quadrant accordion drain, ileostomy to right lower quadrant. EXT: No clubbing cyanosis or edema NEURO: GCS of 15 No focal weakness. Vital Signs (last 8hr) Date Time Temp Pulse Resp B/P (MAP) Pulse Ox O2 Delivery O2 Flow Rate FiO2 09/02/25 20:00 98.2 60 12 127/58 95 Room Air 09/02/25 17:11 97 Room Air* 0 21 09/02/25 16:00 98.2 65 20 106/67 97 Room Air 21 LABS: Hematology Labs: Test 09/02/25 06:00 Range/Units White Blood Count 4.4 #L 4.8-10.8 K/uL Red Blood Count 2.77 L 4.00-5.50 MIL/uL Hemoglobin 8.5 L 12.0-16.0 g/dL Hematocrit 26.8 L 36-48 % Mean Corpuscular Volume 96.8 79-99 fL Mean Corpuscular Hemoglobin 30.7 27.0-33.0 pg Mean Corpuscular Hemoglobin Concent 31.7 L 32.0-36.0 g/dL Red Cell Distribution Width 17.4 H 11.0-15.5 % Platelet Count 99 L 130-400 K/uL Mean Platelet Volume 10.2 7.5-10.5 fL Nucleated Red Blood Cells 0.0 0.0-0.19 % Chemistry Labs: Test 09/02/25 20:14 09/02/25 16:14 09/02/25 05:05 09/01/25 12:41 Range/Units Whole Blood Glucose 148 H 70-110 MG/DL Bedside Glucose Comment Notified Nurse Sodium Level 137 136-145 mmol/L Potassium Level 3.8 3.5-5.1 mmol/L Chloride Level 106 101-111 mmol/L Carbon Dioxide Level 27 21-32 mmol/L Blood Urea Nitrogen 18 7-18 mg/dL Creatinine 0.7 0.5-1.0 mg/dL Glomerular Filtration Rate Calc 101 >90 mL/min Random Glucose 135 H 70-105 mg/dL Total Calcium 7.8 L 8.5-10.1 mg/dL Phosphorus Level 2.5 2.5-4.9 mg/dL Magnesium Level 1.60 L 1.80-2.40 mg/dL Total Bilirubin 0.6 0.2-1.0 mg/dL Aspartate Amino Transf (AST/SGOT) 32 10-37 U/L Alanine Aminotransferase (ALT/SGPT) 16 12-78 U/L Alkaline Phosphatase 115 50-136 U/L Ammonia 39 H 11-32 umol/L Total Protein 5.6 L 6.0-8.3 g/dL Albumin 1.9 L 3.5-5.0 g/dL B-Type Natriuretic Peptide 810 H 0-100 pg/mL Coagulation Labs: Test 09/02/25 05:05 Range/Units Prothrombin Time 15.9 H 9.6-11.6 SEC Prothromb Time International Ratio 1.57 H 0.85-1.15 DIAGNOSTICS / RADIOLOGY RESULTS: [ ] PLAN NEURO: Minimize central acting medications as possible. Maintain fall precautions, adequate lighting during the day PULMONARY: Supplemental 02 as needed. Maintain aspiration precautions at all times CARDIOVASCULAR: Follow hemodynamics. Vital signs per facility protocol GI & NUTRITION: Continue with nutritional support. Continue stool softeners and laxatives as needed. KIDNEYS & ELECTROLYTES: Strict monitoring of intake, output and overall fluid balance. Avoid nephrotoxic medications to the extent possible. Medications to be dosed according to renal function. Monitor electrolytes and replace as needed ENDOCRINE: Maintain blood glucose between 100-180 at all times. Hypoglycemia protocol in place INFECTIOUS DISEASE: Trend temperature, WBC and procalcitonin level Follow cultures, deescalate antibiotics as soon as possible. Panculture if new onset fever ONCOLOGY/HEMATOLOGY/COAGULATION: Monitor for s/s of bleeding Monitor hemoglobin, coagulation studies as needed SKIN: Pressure ulcer prevention per facility protocol Specialty mattress ORTHO/REHAB: Continue PT/OT Prophylaxis: Continue GI and DVT prophylaxis Code Status: Full Resuscitation Disposition: TBD Other: ATTESTATION BY PHYSICIAN I reviewed the documentation, medical decision making, and treatment plan as noted by the mid-level provider above. I agree with the findings and plan of care. Brent Nelson MD, [facility] Sep 02, 2025 21:34
--- NOTE | 2025-09-02 22:59 | PN ---
INFECTIOUS DISEASE PROGRESS NOTE Date of Service: Sep 02, 2025 SUBJECTIVE: Patient has been downgraded to medical-surgical. The cholecystostomy tube was removed. No fever, temperature is 98.4. We will continue on Meropenem. We will continue to monitor patient closely. PHYSICAL EXAM EYES: Anicteric. Pupils equal and reactive. HENT: No oral thrush seen, moist Oral mucosa. NECK: Supple, no JVD or thyromegaly. LUNGS: Good air entry. No rales, no rhonchi. CARDIOVASCULAR: S1, S2 regular. No murmur heard. ABDOMEN: Soft, non tender, bowel sounds present, no organomegaly. Right ileostomy. Left Perisplenic abscess percutaneous drainage catheter. CENTRAL NERVOUS SYSTEM: Awake, alert, oriented x 3. SKIN: No rashes, no swelling. LYMPHATICS: No peripheral lymphadenopathy. MUSCULOSKELETAL: No joint swelling, erythema or tenderness. EXTREMITIES: No cyanosis or clubbing. BACK: No deformity, no pressure ulcer. GENITOURINARY: No dysuria or hematuria. Dueñas catheter. Vital Sign (Last 12 Hours) 09/02/25 09/02/25 09/02/25 16:00 17:11 20:00 Temp 98.2 98.2 Pulse 65 60 Resp 20 12 B/P (MAP) 106/67 127/58 Pulse Ox 97 97 95 O2 Delivery Room Air Room Air* Room Air O2 Flow Rate 0 FiO2 21 21 Intake & Output (last 24hrs) 09/01/25 09/01/25 09/02/25 15:00 23:00 07:00 Intake Total 844.0 ml 763.9 ml 819.0 ml Output Total 450 ml 850 ml 650 ml Balance 394.0 ml -86.1 ml 169.0 ml LABS: Laboratory: Test 09/02/25 20:14 09/02/25 16:14 09/02/25 06:00 09/02/25 05:05 Range/Units Whole Blood Glucose 148 H 70-110 MG/DL Bedside Glucose Comment Notified Nurse White Blood Count 4.4 #L 4.8-10.8 K/uL Red Blood Count 2.77 L 4.00-5.50 MIL/uL Hemoglobin 8.5 L 12.0-16.0 g/dL Hematocrit 26.8 L 36-48 % Mean Corpuscular Volume 96.8 79-99 fL Mean Corpuscular Hemoglobin 30.7 27.0-33.0 pg Mean Corpuscular Hemoglobin Concent 31.7 L 32.0-36.0 g/dL Red Cell Distribution Width 17.4 H 11.0-15.5 % Platelet Count 99 L 130-400 K/uL Mean Platelet Volume 10.2 7.5-10.5 fL Nucleated Red Blood Cells 0.0 0.0-0.19 % Prothrombin Time 15.9 H 9.6-11.6 SEC Prothromb Time International Ratio 1.57 H 0.85-1.15 Sodium Level 137 136-145 mmol/L Potassium Level 3.8 3.5-5.1 mmol/L Chloride Level 106 101-111 mmol/L Carbon Dioxide Level 27 21-32 mmol/L Blood Urea Nitrogen 18 7-18 mg/dL Creatinine 0.7 0.5-1.0 mg/dL Glomerular Filtration Rate Calc 101 >90 mL/min Random Glucose 135 H 70-105 mg/dL Total Calcium 7.8 L 8.5-10.1 mg/dL Phosphorus Level 2.5 2.5-4.9 mg/dL Magnesium Level 1.60 L 1.80-2.40 mg/dL Total Bilirubin 0.6 0.2-1.0 mg/dL Aspartate Amino Transf (AST/SGOT) 32 10-37 U/L Alanine Aminotransferase (ALT/SGPT) 16 12-78 U/L Alkaline Phosphatase 115 50-136 U/L Ammonia 39 H 11-32 umol/L Total Protein 5.6 L 6.0-8.3 g/dL Albumin 1.9 L 3.5-5.0 g/dL Test 09/01/25 12:41 Range/Units B-Type Natriuretic Peptide 810 H 0-100 pg/mL ASSESSMENT: Acute hypoxic respiratory failure requiring oxygen support, resolved. Possible Sepsis. Gastrointestinal bleeding, status post EGD. Acute renal failure requiring dialysis, resolved. Dehydration, resolving. Hypokalemia, resolved. Anemia. Thrombocytopenia. Diabetes mellitus. Perisplenic abscess with a recent CT-guided drainage placement on 08/09/2025. Cholecystostomy tube placement on 08/02/2025 due to acute cholecystitis. Recent laparoscopy, abdominal washout, ileostomy creation on 07/21/2025. PLAN: Continue Meropenem. Continue antidiabetics. Monitor for bleeding. Continue IV fluids. Continue Protonix. Continue pain management. This case was reviewed and discussed with my supervising physician Dr. Tripathi and the above assessment and plan was formulated and agreed upon. ATTESTATION BY PHYSICIAN I have seen and examined the patient. I reviewed the documentation, medical decision making, and treatment plan as noted by the mid-level provider above. I agree with the findings and plan of care. AMIE TRIPATHI MD, [facility] Sep 02, 2025 22:59
--- NOTE | 2025-09-02 23:09 | PN ---
FOLLOWUP PROGRESS NOTE SUBJECTIVE: A 55-year-old female with multiple medical conditions. She initially presented with acute renal failure. The patient did require one course of dialysis for the hyperkalemia. The patient's renal function is greatly improved. The patient has been started on a diet and she is being seen as a followup visit for all of the above. REVIEW OF SYSTEMS: CONSTITUTIONAL: She is feeling improved. HEENT: No change in vision. No change in hearing. CARDIOVASCULAR: There is no current chest pain or palpitations. PULMONARY: There is no shortness of breath. GASTROINTESTINAL: As described above. MUSCULOSKELETAL: Complains of weakness. PHYSICAL EXAMINATION: VITAL SIGNS: Blood pressure is 111/56, pulse 70. GENERAL: She is a chronically ill female, elderly, lying in bed on the medical floor. HEENT: Head is atraumatic. Pupils are equal, round and reactive to light. Oropharynx is without exudate. Nares clear. NECK: There is no JVP. There is no thyromegaly, no mass. CARDIOVASCULAR: Regular. There is no S3 or S4 gallop. LUNGS: Coarse with equal thoracic movement. ABDOMEN: Soft, nondistended, nontender. EXTREMITIES: Reveal no clubbing, no cyanosis. NEUROLOGICAL: She is awake. She is at her baseline. LABORATORY DATA: Sodium 137, potassium 3.8, BUN 18, creatinine 0.7, hemoglobin 8.5, hematocrit 26, white blood cell count 4000. IMPRESSION: Acute renal failure. Electrolyte abnormalities. Diabetes mellitus. Hypertension. PLAN: The patient now is started on a diet. The patient's TPN is to be weaned off. Electrolytes have all been aggressively repleted. The patient's renal function is much improved. Shaggy catheter has been removed. She is encouraged with her therapy. We will continue to follow closely. Patient with multiple questions, all of which were answered. TID: [id number] RECEIPT: [id number]
[2025-09-03] VITALS (7 sets, daily range): BP systolic 98–127; BP diastolic 55–67; PULSE 60–72; RESP 16–24; TEMP 98.1–99.1; O2SAT 99
[2025-09-03 05:04] LABS: NUCLEATED RED BLOOD CELLS 0.0 % (0.0-0.19); PLATELET COUNT (AUTO) 86.0 K/uL (130-400); RED BLOOD CELL COUNT(AUTO) 2.95 MIL/uL (4.00-5.50); RED CELL DISTRIBUTION WIDTH 17.6 % (11.0-15.5); WHITE BLOOD COUNT (AUTO) 5.5 K/uL (4.8-10.8)
[2025-09-03 05:18] LABS: ASPARTATE AMINOTRANSFERASE 28.0 U/L (10-37); CREATININE 0.7 mg/dL (0.5-1.0); GLOMERULAR FILTR. RATE CALC 101.0 mL/min (>90); GLUCOSE,RANDOM 122.0 mg/dL (70-105); SODIUM SERUM 136.0 mmol/L (136-145); TOTAL PROTEIN, SERUM 5.5 g/dL (6.0-8.3); UREA NITROGEN, BLOOD 17.0 mg/dL (7-18)
[2025-09-03] MEDS ORDERED: MAGNESIUM 2GM PREMIX 50ML 50 ML IV SCH (08:00)
--- NOTE | 2025-09-03 10:39 | HMCIMG ---
EXAM: CR Chest, 1 View (Portable, Supine). CLINICAL HISTORY: Chest pain. COMPARISON: CR Chest, 2 View ??? 09/01/2025 01:13 AM EDT. FINDINGS: LUNGS: Area of haziness in left lower zone-Remained stable. Rest of the lungs are clear. No focal consolidation, pulmonary edema, or acute infiltrate. PLEURAL SPACES: No pleural effusion or pneumothorax. MEDIASTINUM: Cardiac size and mediastinal contours within normal limits. No acute osseous abnormality. LINES/DEVICES: Monitoring leads noted. No new devices identified. IMPRESSION: Area of haziness in left lower zone likely airspace opacity-Stable compared to previous radiograph. /Braden
--- NOTE | 2025-09-03 11:02 | PN ---
[facility] PROGRESS NOTE Date of Service: Sep 03, 2025 Time of Service: 8:30 SUBJECTIVE: As per admission notes "50-year-old female with underlying history of type 2 diabetes mellitus, history of liver cirrhosis, prior history of esophageal varices requiring banding in May,, history of robotic sigmoid resection with takedown of colovesical fistula who was recently hospitalized in [facility] from 07/20/2025 - 08/25/2025 patient was found to have bilious peritonitis with 2 mm perforation of colonic anastomosis requiring diagnostic laparoscopy, abdominal washout and drain placement with creation of diverting loop ileostomy. Patient was hospitalized for about one month and subsequently required IR guided drain placement as well. She was just discharged from the hospital on 08/25/2025. Patient's daughter reports that patient was having nausea and vomiting with poor oral intake at home. She started to have coffee-ground emesis today and she also noticed some right streaks of blood with a coffee-ground emesis. Stool has also been dark in the ileostomy bag. Patient is having moderate intensity abdominal pain as well. She has not been taking any NSAIDs. Daughter reports that patient has been very weak since her discharge in very debilitated. Patient denies active chest pain. Denies active shortness of breath. On presentation to the hospital, patient was noted to be afebrile with T-max of 97.5 F, heart rate of 100, blood pressure of 127/91. [place] [address], hemoglobin of 16.4, platelet count of 770661. BMP was repeated twice, BMP showed sodium of 117, potassium 7.0, chloride of 88, CO2 of seven, BUN of 83, creatinine 5.0, blood glucose of 99, calcium 10.4. Blood gas showed pH of 7.28, bicarb of close to eight, CO2 of 18, lactic acid of three. Patient will be admitted to ICU. Patient is presenting with severe renal failure with hyperkalemia and severe metabolic acidosis. Patient also with concerns for upper GI bleeding with coffee-ground emesis. Patient remains critically ill consultation with Intensive Care, Nephrology, GI will be requested. We we will obtain a CT abdomen pelvis without contrast for further evaluation as well. Patient is critically ill. Plan of care was discussed with patient and daughter at bedside" 08/30/2025 Patient was seen and examined at bedside. Her blood pressure has been low, 88/54, heart rate 86. She is currently on Levophed 0.2 Mcg, octreotide, Protonix, sodium bicarbonate drip. She received 2nd hemodialysis session yesterday. As per Nephrology, she will continue to receive dialysis inpatient. Her high anion gap metabolic acidosis is improving with sodium 134, carbon dioxide 31, chloride 96. Her creatinine has trended down from 5-1.8. General surgery consult is on board and we will follow up with their recommendations. Additionally, in the light of history of liver cirrhosis with esophageal varices, her recent hematemesis will be evaluated with GI consult and possible endoscopy. We discussed this with the patient and her family members present besides. Patient is started on Merrem and blood culture, urine cultures show no growth so far. Her lactic acid has trended down from 3.1 to 2.1. 08/31/2025 Patient was seen and examined at bedside in room 214. She continues to be on Levophed 0.1 which is being weaned off. She is also on Sandostatin and Protonix drip. Patient complained of mild pain along the sides of her drain but denied any nausea or episode of vomiting since Saturday. Minimal drainage was noted. Sodium bicarb was discontinued as per Nephrology. Her lab markers have improved with sodium 141, chloride 104, bicarb 32, creatinine 1, BUN 16, ammonia 34. Her urine sodium was less than 20 consistent with prerenal CYNTHIA. We are pending blood and urine culture results. Her total output in the past24 hours has been optimal, 2069. She is on sodium chloride 150 mL/hour. We are following gastroenterology recommendations of possible upper endoscopy in the morning if patient condition remains stable. 09/01/2025 Patient was seen and examined at bedside. She is off vasopressor support and is hemodynamically stable. Her chest x-ray showed opacity in the left lower lobe and we will follow up with CT scan of chest. She is started on 2nd day of ppm today. She successfully underwent EGD which showed small, less than 5 mm, esophageal varices with scar in the lower 3rd of the esophagus. Patient was noted to have portal hypertensive gastropathy which was biopsied. Duodenum was normal during examination. Patient is receiving Merrem and her blood culture and urine cultures have shown no growth so far. Due to her elevated ammonia levels, she will be started on lactulose. We will proceed with caution with respect to normal saline as patient's BNP is elevated. 09/02/2025 The patient has been seen and examined earlier this morning during my rounding, case discussed with the RN, no acute events overnight, blood pressure 118/71, h eart rate of 56, afebrile, saturating normal on room air, CBC showing hemoglobin 8.5, hematocrit 36.8, WBC of 4.4, platelet count of 99, sodium 137, potassium 3.8, BUN of 18, creatinine 0.7, magnesium Lasix. Results of blood culture no growth after four days. Urine culture no growth. EGD reviewed, small less than 5 mm esophageal varices with scar in the lower 3rd of the esophagus. Patient with a bottle hypertensive gastropathy, status post biopsy, duodenum was normal during examination. Patient to be downgraded to the medical floor, continue banana bag, continue Protonix 40 mg IV b.i.d.. Plan for possible PEG tube placement. 09/03/2025 Patient was seen and examined at bedside. She has been advanced to GI soft bland diet which she is tolerating really well and having output in her ileostomy bag. As per surgeon, if she continues to tolerate diet, she may not require G-tube placement on discharge. Patient did not complain of any significant pain and seemed to be doing really well. Her cholecystostomy tube was removed but her splenic percutaneous tube is still in position and may require further IR intervention for repositioning due to persistent and mildly increased perisplenic fluid collection. She is receiving lactulose and her ammonia levels have gone down. Her acute renal failure continues to resolve and her vitals are also stable. No growth on urine and blood culture so far. We have shifted her from Protonix IV to p.o. as per GI recommendations. REVIEW OF SYSTEMS CONSTITUTIONAL: malaise, poor oral intake -resolving NEUROLOGICAL: Denies headache, amaurosis fugax, motor weakness, sensory deficit, vertigo/spinning sensation, gait abnormalities, or tremors. ENT: No hearing loss, otalgia, otorrhea, rhinitis, rhinorrhea, hoarseness, or sore throat. CARDIOVASCULAR: Denies any exertional angina, dyspnea on exertion, orthopnea, paroxysmal nocturnal dyspnea, palpitations, life-threatening arrhythmias, claudication. PULMONARY: Denies any shortness of breath, cough, phlegm/sputum, hemoptysis, pleuritic chest pain. SLEEP: Denies morning headaches, daytime somnolence or napping. Denies difficulty falling asleep, staying asleep, waking from sleep. Denies knowledge of snoring. GASTROINTESTINAL: nausea, vomiting, abdominal pain, melena, coffee ground emesis - resolved GENITOURINARY: Urine output was very low - resolving ENDOCRINOLOGIC: Denies polyuria, polydipsia, polyphagia or heat/cold intolerances. PHYSICAL EXAM GENERAL APPEARANCE: The patient is awake, alert, and oriented, answering to all questions with very mild pain around her drains. NEUROLOGICAL: Cranial nerves II-XII grossly intact. Neurological examination is non focal with spontaneous movement of upper and lower extremities HEENT: Face is symmetric. Pupils are equal and reactive. Extraocular movements are intact. NECK: Supple. No JVD. No thyromegaly. No submental, submandibular, pre- /postauricular, occipital or supraclavicular lymphadenopathy. CHEST: Normal chest expansion. No Telemetry. LUNGS: Absence of any rales, rhonchi or any wheezing. CARDIOVASCULAR: Regular. S1 and S2 normal. No appreciable rubs, murmurs or gallops. ABDOMEN: no rebound noted, there is abdominal drain noted with ileostomy bag. : Deferred. EXTREMITIES: Non-edematous and not cyanotic. No clubbing. Vital Signs (last 8hr) Date Time Temp Pulse Resp B/P (MAP) Pulse Ox O2 Delivery O2 Flow Rate FiO2 09/03/25 08:00 98.2 72 18 111/63 94 Room Air 09/03/25 07:31 Room Air* 0 21 09/03/25 04:00 99.1 60 16 115/66 93 Room Air LABS: Laboratory: Test 09/03/25 05:26 09/03/25 04:24 09/02/25 16:14 09/02/25 05:05 Range/Units Whole Blood Glucose 139 H 70-110 MG/DL White Blood Count 5.5 4.8-10.8 K/uL Red Blood Count 2.95 L 4.00-5.50 MIL/uL Hemoglobin 9.0 L 12.0-16.0 g/dL Hematocrit 27.9 L 36-48 % Mean Corpuscular Volume 94.6 79-99 fL Mean Corpuscular Hemoglobin 30.5 27.0-33.0 pg Mean Corpuscular Hemoglobin Concent 32.3 32.0-36.0 g/dL Red Cell Distribution Width 17.6 H 11.0-15.5 % Platelet Count 86 L 130-400 K/uL Mean Platelet Volume 10.4 7.5-10.5 fL Nucleated Red Blood Cells 0.0 0.0-0.19 % Sodium Level 136 136-145 mmol/L Potassium Level 4.1 3.5-5.1 mmol/L Chloride Level 105 101-111 mmol/L Carbon Dioxide Level 25 21-32 mmol/L Blood Urea Nitrogen 17 7-18 mg/dL Creatinine 0.7 0.5-1.0 mg/dL Glomerular Filtration Rate Calc 101 >90 mL/min Random Glucose 122 H 70-105 mg/dL Total Calcium 7.7 L 8.5-10.1 mg/dL Magnesium Level 1.40 L 1.80-2.40 mg/dL Total Bilirubin 0.6 0.2-1.0 mg/dL Aspartate Amino Transf (AST/SGOT) 28 10-37 U/L Alanine Aminotransferase (ALT/SGPT) 14 12-78 U/L Alkaline Phosphatase 108 50-136 U/L Total Protein 5.5 L 6.0-8.3 g/dL Albumin 1.8 L 3.5-5.0 g/dL Bedside Glucose Comment Notified Nurse Prothrombin Time 15.9 H 9.6-11.6 SEC Prothromb Time International Ratio 1.57 H 0.85-1.15 Phosphorus Level 2.5 2.5-4.9 mg/dL Ammonia 39 H 11-32 umol/L Test 09/01/25 12:41 Range/Units B-Type Natriuretic Peptide 810 H 0-100 pg/mL Current Medications Medications (Trade) Dose Ordered Sig/Gregory Route PRN Reason Start Time Stop Time Status Last Admin Dose Admin Acetaminophen (TYLenol 325MG TAB) 650 mg Q6H PRN PO MILD PAIN (1-3) 08/29/25 10:00 09/28/25 09:59 Albuterol (DUOneb) 1 udvial Q6H PRN IH SHORTNESS OF BREATH 08/29/25 10:00 09/28/25 09:59 Calcium Gluconate (Calcium Gluc 1gm Vial) 1 gm ONCE IV 08/29/25 09:30 08/29/25 09:23 DC Dextrose (D50w) 50 ml AD PRN IV HYPOGLYCEMIA PROTOCOL 08/29/25 10:00 09/28/25 09:59 Dextrose/Sodium Chloride 1,000 ml @ 0 mls/hr AD IV 08/29/25 12:30 08/29/25 16:05 DC Glucagon (Glucagon 1mg Kit) 1 mg AD PRN IM HYPOGLYCEMIA PROTOCOL 08/29/25 10:00 09/28/25 09:59 Insulin Human Regular (humuLIN R 100 UNIT/ML 3ML) 5 unit ONCE IV 08/29/25 09:30 08/29/25 09:25 DC Insulin Human Regular (humuLIN R 100 UNIT/ML 3ML) INSULIN SLIDING SCAL... ACHS SQ 08/29/25 11:30 09/28/25 11:29 08/30/25 09:52 4 UNIT Insulin Human Regular 100 unit/ Sodium Chloride 101 ml @ 0 mls/hr PROTOCOL IV 08/29/25 12:30 08/29/25 16:05 DC Lactulose (Constulose 20gm/ 30ml Udcup) 20 gm TID PO 09/01/25 14:00 10/01/25 13:59 09/03/25 09:15 20 GM Magnesium Sulfate 50 ml @ 0 mls/hr PROTOCOL IV 08/29/25 12:30 08/29/25 16:05 DC Magnesium Sulfate 50 ml @ 0 mls/hr PROTOCOL IV 08/30/25 10:00 09/29/25 09:59 09/02/25 06:25 25 MLS/HR Magnesium Sulfate 50 ml @ 0 mls/hr PROTOCOL IV 09/02/25 13:30 09/02/25 13:04 DC Magnesium Sulfate 50 ml @ 0 mls/hr PROTOCOL IV 09/03/25 08:00 09/03/25 07:43 DC Meropenem (Merrem 500mg) 500 mg Q24H IVPB 08/29/25 10:00 08/31/25 09:59 DC 08/30/25 09:46 500 MG Meropenem (Merrem 500mg) 500 mg Q24H IVPB 08/31/25 23:30 09/10/25 23:29 09/02/25 23:34 500 MG Midodrine (PROAMatine 5 MG TABLET) 10 mg BID PO 09/01/25 09:00 08/31/25 18:36 DC Midodrine (PROAMatine 5 MG TABLET) 10 mg TID PO 09/01/25 09:00 10/01/25 08:59 09/03/25 09:16 10 MG Morphine Sulfate (morPHINE 2MG SYG) 2 mg Q4H PRN IVP SEVERE PAIN (7-10) 09/01/25 05:30 09/08/25 05:29 09/03/25 04:33 2 MG Norepinephrine Bitartrate 32 mg/ Sodium Chloride 250 ml @ 0 mls/hr Q0M STAT IV 08/29/25 21:01 08/29/25 21:07 DC 08/29/25 21:13 0 MLS/HR Octreotide Acetate 1250 mcg/ Sodium Chloride 250 ml @ 0 mls/hr PROTOCOL IV 08/29/25 08:30 09/01/25 10:32 DC 08/31/25 10:18 5 MLS/HR Ondansetron HCl (zoFRAN 4MG INJ) 4 mg Q6H PRN IVP NAUSEA/VOMITING 08/29/25 09:30 09/28/25 09:29 09/03/25 04:33 4 MG Pantoprazole Sodium (PROTonix 40MG INJ) 40 mg BID IVP 09/01/25 21:00 10/01/25 20:59 09/03/25 09:16 40 MG Pantoprazole Sodium 80 mg/ Sodium Chloride 100 ml @ 10 mls/hr Q10H IV 08/29/25 08:30 09/01/25 10:32 DC 09/01/25 05:50 10 MLS/HR Pharmacy Profile Note (Pharmacy Communication) 1 each ONCE MISC 08/29/25 09:30 08/29/25 09:35 DC Pharmacy Profile Note (Pharmacy Communication) 1 each ONCE MISC 08/31/25 23:30 08/31/25 23:17 DC Potassium Chloride 100 ml @ 50 mls/hr AD PRN IV POTASSIUM PROTOCOL 08/29/25 12:30 09/28/25 12:29 09/02/25 06:26 50 MLS/HR Sodium Bicarbonate 150 meq/Dextrose 1,150 ml @ 125 mls/hr Q9H12M IVP 08/29/25 10:00 08/30/25 10:12 DC 08/30/25 08:07 125 MLS/HR Sodium Chloride 250 ml @ 0 mls/hr AD IV 08/29/25 17:30 09/28/25 17:29 Sodium Chloride 1,000 ml @ 0 mls/hr Q0M IV 08/29/25 16:00 08/29/25 16:03 DC Sodium Chloride 1,000 ml @ 0 mls/hr Q0M IV 08/29/25 16:00 09/01/25 08:01 DC 08/29/25 16:10 500 MLS/HR Sodium Chloride 1,000 ml @ 125 mls/hr Q8H IV 08/29/25 09:30 08/29/25 09:57 DC Sodium Chloride 1,000 ml @ 150 mls/hr Q6H40M IV 08/29/25 18:30 09/01/25 09:29 DC 08/31/25 16:16 150 MLS/HR Sodium Chloride 1,000 ml @ 200 mls/hr PROTOCOL IV 08/29/25 12:30 08/29/25 16:05 DC Sodium Chloride 1,000 ml @ 999 mls/hr Q1H1M IV 08/29/25 09:30 08/29/25 09:06 DC Thiamine HCl (Vitamin B-1) 200 mg Q12H IVP 08/29/25 09:30 09/02/25 09:30 DC 09/02/25 08:56 200 MG DIAGNOSTICS / RADIOLOGY: PATIENT: DALLAS BUCHANAN MR#: [id number] : 1970 SEX: F AGE: 55 LOCATION: 3AH ORDER 2300 STATUS: ADM IN REPORT#: [id number] SERVICE 0600 REASON: hypoxic ORDERING PHYSICIAN: LOBO RICKS PROCEDURE: CXR1VW - CHEST 1VW EXAM: CR Chest, 1 View (Portable, Supine). CLINICAL HISTORY: Chest pain. COMPARISON: CR Chest, 2 View ??? 09/01/2025 01:13 AM EDT. FINDINGS: LUNGS: Area of haziness in left lower zone-Remained stable. Rest of the lungs are clear. No focal consolidation, pulmonary edema, or acute infiltrate. PLEURAL SPACES: No pleural effusion or pneumothorax. MEDIASTINUM: Cardiac size and mediastinal contours within normal limits. No acute osseous abnormality. LINES/DEVICES: Monitoring leads noted. No new devices identified. IMPRESSION: Area of haziness in left lower zone likely airspace opacity-Stable compared to previous radiograph. /[place] DICTATED BY: TOBI LEAHY MD DATE: 09/03/251137 ELECTRONICALLY SIGNED BY: TOBI LEAHY MD DATE: 09/03/251137 PATIENT: DALLAS BUCHANAN MR#: [id number] : 1970 SEX: F AGE: 55 LOCATION: 2CV ORDER 1231 STATUS: ADM IN REPORT#: [id number] SERVICE 1227 REASON: EVALUATE LUQ PIGRTAIL FOR POSSIBLE REMOVAL ORDERING PHYSICIAN: SUSAN JHAVERI MD PROCEDURE: ABDO WO - CT ABDOMEN W/O CONTRAST ADDENDUM REPORT ADDENDUM: Results were shared by telephone at 11:21 pm on 09-01-25 and acknowledged by Patient's Nurse Jabier Bangura. /[place] EXAM: CT ABDOMEN WITHOUT INTRAVENOUS CONTRAST Technique: Multislice helical computed tomography of the abdomen was performed from the diaphragms through the iliac crests with axial images and coronal/sagittal reformations. Dose optimization per ALARA. Contrast: No intravenous contrast administered. Contrast Impression: Noncontrast technique limits assessment of enhancement-dependent pathology and characterization of fluid collections. Clinical Information: Evaluation of left upper quadrant pigtail drain for possible removal. Comparison: CT abdomen/pelvis without contrast dated 08/29/2025. Findings: Lung bases: Interval development of small bilateral pleural effusions with dependent subsegmental atelectasis in the lower lobes. Previously described tiny calcified nodules are not conspicuous on the current noncontrast images. Liver: Morphologic features of cirrhosis are unchanged. No focal hepatic lesion identified on this noncontrast study. Gallbladder and bile ducts: Decompressed gallbladder with a cholecystostomy tube in place, stable. No biliary ductal dilatation. Pancreas: Normal contour without peripancreatic inflammatory change. Spleen: Infrasplenic fluid collection adjacent to the splenic inferior pole measuring approximately 2.7 ??? 3.5 ??? 6.4 cm (previously 2.7 ??? 2.2 ??? 5.1 cm), with a pigtail drainage catheter in situ and mild adjacent fat stranding. Adrenal glands: Normal morphology bilaterally. Kidneys and ureters: Kidneys within normal size and contour; no hydronephrosis or hydroureter; no nephrolithiasis. Urinary bladder: Dueñas catheter in place with small intraluminal gas foci, likely iatrogenic; bladder otherwise unremarkable. Stomach and bowel: Right iliac fossa ileostomy defect ( 2.4 cm) and postoperative bowel changes, stable. No evidence of bowel obstruction, enteritis, or colitis. Peritoneum and mesentery: New minimal free fluid predominantly along the greater curvature of the stomach with mild mesenteric edema (anasarca). No free intraperitoneal air. Lymph nodes: No pathologic abdominopelvic lymphadenopathy. Vasculature: Abdominal aorta normal in caliber. Abdominal wall/soft tissues: Expected postoperative changes at the ostomy site; otherwise unremarkable. Osseous structures: No acute or aggressive osseous abnormality; mild degenerative changes in the visualized spine. Impression: * Infrasplenic collection with indwelling pigtail drain has increased in size compared with 08/29/2025 (now 2.7 ??? 3.5 ??? 6.4 cm from 2.7 ??? 2.2 ??? 5.1 cm) with mild surrounding fat stranding???ongoing collection persists. Drain removal is not advised at this time based on interval enlargement; recommend interventional radiology review for catheter position/patency, consideration of catheter upsizing or repositioning, and correlation with output and culture. * New small bilateral pleural effusions with dependent basilar atelectasis. Monitor clinically; consider diuresis or follow-up imaging as indicated. * Cirrhotic hepatic morphology, unchanged. * Decompressed gallbladder with cholecystostomy tube in place, stable; no biliary ductal dilatation. * Minimal ascites and mild mesenteric edema (anasarca), new from prior. * Dueñas catheter with small intravesical gas, likely iatrogenic. * No bowel obstruction, hydronephrosis, or nephrolithiasis identified. /[place] DICTATED BY: EDWIGE LEDESMA MD DATE: 09/01/252329 ELECTRONICALLY SIGNED BY: DATE: EXAM: CT ABDOMEN WITHOUT INTRAVENOUS CONTRAST Technique: Multislice helical computed tomography of the abdomen was performed from the diaphragms through the iliac crests with axial images and coronal/sagittal reformations. Dose optimization per ALARA. Contrast: No intravenous contrast administered. Contrast Impression: Noncontrast technique limits assessment of enhancement-dependent pathology and characterization of fluid collections. Clinical Information: Evaluation of left upper quadrant pigtail drain for possible removal. Comparison: CT abdomen/pelvis without contrast dated 08/29/2025. Findings: Lung bases: Interval development of small bilateral pleural effusions with dependent subsegmental atelectasis in the lower lobes. Previously described tiny calcified nodules are not conspicuous on the current noncontrast images. Liver: Morphologic features of cirrhosis are unchanged. No focal hepatic lesion identified on this noncontrast study. Gallbladder and bile ducts: Decompressed gallbladder with a cholecystostomy tube in place, stable. No biliary ductal dilatation. Pancreas: Normal contour without peripancreatic inflammatory change. Spleen: Infrasplenic fluid collection adjacent to the splenic inferior pole measuring approximately 2.7 ??? 3.5 ??? 6.4 cm (previously 2.7 ??? 2.2 ??? 5.1 cm), with a pigtail drainage catheter in situ and mild adjacent fat stranding. Adrenal glands: Normal morphology bilaterally. Kidneys and ureters: Kidneys within normal size and contour; no hydronephrosis or hydroureter; no nephrolithiasis. Urinary bladder: Dueñas catheter in place with small intraluminal gas foci, likely iatrogenic; bladder otherwise unremarkable. Stomach and bowel: Right iliac fossa ileostomy defect ( 2.4 cm) and postoperative bowel changes, stable. No evidence of bowel obstruction, enteritis, or colitis. Peritoneum and mesentery: New minimal free fluid predominantly along the greater curvature of the stomach with mild mesenteric edema (anasarca). No free intraperitoneal air. Lymph nodes: No pathologic abdominopelvic lymphadenopathy. Vasculature: Abdominal aorta normal in caliber. Abdominal wall/soft tissues: Expected postoperative changes at the ostomy site; otherwise unremarkable. Osseous structures: No acute or aggressive osseous abnormality; mild degenerative changes in the visualized spine. Impression: * Infrasplenic collection with indwelling pigtail drain has increased in size compared with 08/29/2025 (now 2.7 ??? 3.5 ??? 6.4 cm from 2.7 ??? 2.2 ??? 5.1 cm) with mild surrounding fat stranding???ongoing collection persists. Drain removal is not advised at this time based on interval enlargement; recommend interventional radiology review for catheter position/patency, consideration of catheter upsizing or repositioning, and correlation with output and culture. * New small bilateral pleural effusions with dependent basilar atelectasis. Monitor clinically; consider diuresis or follow-up imaging as indicated. * Cirrhotic hepatic morphology, unchanged. * Decompressed gallbladder with cholecystostomy tube in place, stable; no biliary ductal dilatation. * Minimal ascites and mild mesenteric edema (anasarca), new from prior. * Dueñas catheter with small intravesical gas, likely iatrogenic. * No bowel obstruction, hydronephrosis, or nephrolithiasis identified. /[place] DICTATED BY: EDWIGE LEDESMA MD DATE: 09/01/252258 ELECTRONICALLY SIGNED BY: EDWIGE LEDESMA MD DATE: 09/01/252258 ATIENT: DALLAS BUCHANAN MR#: [id number] : 1970 SEX: F AGE: 55 LOCATION: 2CV ORDER 1130 STATUS: ADM IN REPORT#: [id number] SERVICE 1127 REASON: Left lower lung lobe opacities ORDERING PHYSICIAN: SONJA PERALTA MD PROCEDURE: CHEST WO - CT CHEST W/O CONTRAST EXAM: CT CHEST WITHOUT INTRAVENOUS CONTRAST Technique: Helical computed tomography of the chest from thoracic inlet through the upper abdomen without intravenous contrast, with axial images and coronal/sagittal reformations. Dose optimization performed in accordance with ALARA. Clinical Information: Left lower lung lobe opacities. Comparison: Chest radiograph dated 09/01/2025 at 05:46 EDT. Findings: Soft tissues: Unremarkable. Lungs and large airways: Central airways are patent. Subsegmental consolidation in the posterior segments of both lower lobes. Additional subsegmental consolidation in the superior segment of the left upper lobe. Linear atelectatic bands in the superior lingular segment and posterior segment of the left upper lobe. A calcified pulmonary nodule measures 5 mm in the right lower lobe (series 3, image 29). Pleura: Minimal bilateral pleural effusions. No pneumothorax. Heart and pericardium: Cardiac size within normal limits. No pericardial effusion. Aorta: Normal course and caliber on this noncontrast study. Pulmonary arteries: Evaluation limited without contrast; no large central filling defect is seen on this noncontrast exam. Lymph nodes: No pathologically enlarged mediastinal or hilar lymph nodes. Mediastinum and toya: No mass identified. Chest wall and lower neck: No acute abnormality. Bones/joints: No acute osseous abnormality. Upper abdomen: Visualized portions without acute abnormality; detailed abdominal findings are reported separately. Impression: * Subsegmental consolidation in the posterior segments of both lower lobes and in the superior segment of the left upper lobe with minimal bilateral pleural effusions???most compatible with multifocal atelectasis versus infection/aspiration in the appropriate clinical context. Recommend clinical correlation and short-interval follow-up chest imaging to document resolution. * Benign-appearing calcified pulmonary nodule in the right lower lobe measuring 5 mm (series 3, image 29), consistent with a granuloma; no additional suspicious nodules identified. * No pneumothorax or acute cardiomediastinal abnormality identified on this noncontrast examination. /[place] DICTATED BY: EDWIGE LEDESMA MD DATE: 09/01/252255 ELECTRONICALLY SIGNED BY: EDWIGE LEDESMA MD DATE: 09/01/252255 ASSESSMENT: Hypovolemic hypochloremic hyponatremia, POA, Resolved Hemorrhagic shock versus hypovolemic shock - requiring vasopressor support, POA, Resolved Acute upper GI bleeding- Hematemesis, dark output from ileostomy bag, POA, Improving Severe hyperkalemia, POA, Resolved Hypokalemia, Not POA, resolved Hypophosphatemia, Not POA High anion gap metabolic acidosis, POA, Resolved Hyperammonemia, POA, Improving Lactic acidosis, POA, Resolved Hyperphosphatemia, POA, Resolved Acute renal failure - Prerenal Acute Kidney Injury, POA, resolved Starvation Ketoacidosis, POA Rule out occult sepsis, POA Recent extended hospitalization in [facility], 07/20/2025- 08/25/2025 for sepsis, acute abdomen, POA Severe Dehydration, POA, Improving History of esophageal varices, POA Acute Decompensated liver cirrhosis, POA Hx of acute cholecystitis, s/p cholecystostomy tube placement on 08/02/2025. Perisplenic abscess, s/p CT-guided drainage placement on 08/09/2025. 2.7 x 2.2 x 5.1 cm infrasplenic collection History of gastritis, POA Hx of Generalized peritonitis with ESBL E coli infection, POA Moderate Protein calorie malnutrition POA History of bilious peritonitis with small colonic anastomosis perforation s/p diagnostic laparoscopy, abdominal washout, ileostomy creation by Dr. Jhaveri, 07/21/2025 Hx of DM II, POA Recent colovesical fistula repair with sigmoid colon resection and anastomosis on PLAN: Acute upper GI bleeding- Hematemesis, dark output from ileostomy bag - EGD was done which showed less than 5 mm esophageal varices with scar in the lower 3rd of the esophagus. Patient with a bottle hypertensive gastropathy, status post biopsy, duodenum was normal during examination. - Sandostatin and Protonix drip were stopped. - Pantoprazole 40mg IV bid x 24 hours post EGD, now patient is started on pantoprazole 40mg po daily. - patient has been started on GI soft bland diet and she is tolerating it well producing output in her ileostomy bag. Hemorrhagic shock versus hypovolemic shock, - Patient was weaned off Levophed drip. -Hemodynamically stable. -Currently on midodrine 10 mg. - keep Hgb above 7. - Keep map above 65. High anion gap metabolic acidosis, Hypovolemic hypochloremic hyponatremia, Severe hyperkalemia, Hyperphosphatemia - On presentation, patient's potassium was 6.8, Phosphate 7.0. Sodium 119, chloride 87, carbon dioxide 13, consistent with high anion gap metabolic acidosis - EKG was done which showed Sinus rhythm. She received calcium gluconate as well as insulin for hyperkalemia. She also underwent emergent HD. Her potassium improved to 3.5 subsequently. Her sodium also improved to 134, chloride 96, CO2 31 (08/30). - Patient was started on sodium bicarbonate because of acidosis and bicarb deficit. Her BMP Bicarb today is 29. Bicarb drip was then discontinued as per nephrology. - Patient was receiving sodium chloride 150 mls/hr which was stopped. - Total output in past 24 hours is 2235 vs 3325 input. - Monitor input and output as well as daily weights. - We will follow up with nephrology recommendations and repeat CMP, CBC and rel ated labs in the morning. Lactic acidosis, starvation acidosis, Suspected occult sepsis. - WBCs are 5.1 (08/31). - We will follow with blood culture and urine culture which are negative so far. - patient is continued on Merrem as per Infectious Disease recommendation Acute renal failure, Prerenal Acute Kidney Injury, Dehydration - On Presentation, patient's creatinine was 5, BUN 80. - FENa <0.2, Stone <20 - Urine microscopy showed Hyaline and granular casts - patient was started on NaCl 150mls/hr which was stopped. - Bicarb drip was discontinued as per nephrology. - patient is successfully weaned off Levophed - Patient received emergent hemodialysis session for elevated renal parameters as well as electrolyte derangements including Hyperkalemia and acidosis. - Her creatinine and BUN have improved to 1.0 and 16 respectively (08/31) - Transfuse as needed to keep Hb above 7 (Hb=9.0, 08/31/25) - Monitor input and output. Patient's total output in the past24 hours is 2070, versus 3950 input. - We will repeat a.m. labs and follow up with Nephrology recommendations. Hyperammonemia - On 09/01, ammonia levels were 51. Patient was started on lactulose tid. - Follow up with ammonia levels. Hypokalemia, Hypophosphatemia - Patient's potassium dropped to 2.9 and phosphate 1.8. 08/31/2025 - Patient was started on potassium phosphate IV. - We will follow up with Nephrology recommendation and repeat labs in the morning. ATTESTATION BY PHYSICIAN I have seen and examined the patient. I reviewed the documentation, medical decision making, and treatment plan as noted by the resident physician above. I agree with the findings and plan of care. AYAKA BARR MD, MUHAMMAD H MD Sep 03, 2025 11:02
--- NOTE | 2025-09-03 11:34 | PN ---
[facility] PROGRESS NOTE Date Patient Seen: Sep 03, 2025 Time of Visit: 11:34 Supervising Physician: Dr. Brent Nelson Primary Care Physician: Jes Olivera Outpatient Specialists: [ ] Inpatient Consults: [facility] PROBLEM LIST: GI bleed in the presence of esophageal varices, resolved S/P EGD 09/01/25 small< 5 mm esophageal varices., scarring in the lower 3rd of the esophagus, portal hypertensive gastropathy, biopsied. Severe Malnutrition POA Acute decompensated liver cirrhosis, improving Hyperammonemia, improved Moderate protein malnutrition Severe dehydration POA, resolved Hyperglycemia in the presence of type 2 diabetes mellitus, POA hx of acute cholecystitis, s/p cholecystostomy tube to right upper quadrant placement on 08/02/2025. Perisplenic abscess, s/p CT-guided drainage placement on 08/09/2025. History of bilious peritonitis with small colonic anastomosis perforation s/p diagnostic laparoscopy, abdominal washout, ileostomy creation by Dr. Gann, 07/21/2025 Hx of Generalized peritonitis with ESBL E coli infection, POA Recent colovesical fistula repair with sigmoid colon resection and anastomosis on INTERVAL HISTORY: Patient assessed at bedside. AAOX3. Currently on room air. Able to voice needs and follow commands. Denies any chest pain, abdominal pain, nausea or vomiting. Eating soft diet. Ostomy with stool. Family at bedside. BIS will sign off at this time, please re-consult if needed. Plan: Per GI advance diet to soft bland Follow General surgery recommendations Monitor for signs of fluid intolerance Monitor electrolytes and replace accordingly PT to eval and treat Further management per primary team REVIEW OF SYSTEMS: General:+ generalized weakness Neurological: No fainting episodes or seizures. HEENT: No nasal congestion or nasal secretion. Respiratory: No cough, shortness of breath, or wheezing Cardiac: No chest pain or palpitations. Gastrointestinal: No vomiting or diarrhea. Poor appetite Genitourinary: No dysuria hematuria. Skin: No rashes or lesions. Hematological: No bruises or bleeding. Musculoskeletal: No joint pains or arthralgias. Psychiatric: No depression or panic attacks. PHYSICAL EXAM: GENERAL: Chronically ill, weak, debilitated, malnourished HEENT: EOMI, Sclera non icteric, dry mucosa NECK: Supple, no JVD, trachea midline LUNGS: Clear breath sounds bilaterally. No wheezes HEART: Regular rate and rhythm. Normal S1 and S2, without murmurs ABD: Abdomen soft, nontender. Bowel sounds present, right upper quadrant cholecystostomy tube, left upper quadrant accordion drain, ileostomy to right lower quadrant. EXT: No clubbing cyanosis or edema NEURO: GCS of 15 No focal weakness. Vital Signs (last 8hr) Date Time Temp Pulse Resp B/P (MAP) Pulse Ox O2 Delivery O2 Flow Rate FiO2 09/03/25 08:00 98.2 72 18 111/63 94 Room Air 09/03/25 07:31 Room Air* 0 21 09/03/25 04:00 99.1 60 16 115/66 93 Room Air LABS: Hematology Labs: Test 09/03/25 04:24 Range/Units White Blood Count 5.5 4.8-10.8 K/uL Red Blood Count 2.95 L 4.00-5.50 MIL/uL Hemoglobin 9.0 L 12.0-16.0 g/dL Hematocrit 27.9 L 36-48 % Mean Corpuscular Volume 94.6 79-99 fL Mean Corpuscular Hemoglobin 30.5 27.0-33.0 pg Mean Corpuscular Hemoglobin Concent 32.3 32.0-36.0 g/dL Red Cell Distribution Width 17.6 H 11.0-15.5 % Platelet Count 86 L 130-400 K/uL Mean Platelet Volume 10.4 7.5-10.5 fL Nucleated Red Blood Cells 0.0 0.0-0.19 % Chemistry Labs: Test 09/03/25 05:26 09/03/25 04:24 09/02/25 16:14 09/02/25 05:05 Range/Units Whole Blood Glucose 139 H 70-110 MG/DL Sodium Level 136 136-145 mmol/L Potassium Level 4.1 3.5-5.1 mmol/L Chloride Level 105 101-111 mmol/L Carbon Dioxide Level 25 21-32 mmol/L Blood Urea Nitrogen 17 7-18 mg/dL Creatinine 0.7 0.5-1.0 mg/dL Glomerular Filtration Rate Calc 101 >90 mL/min Random Glucose 122 H 70-105 mg/dL Total Calcium 7.7 L 8.5-10.1 mg/dL Magnesium Level 1.40 L 1.80-2.40 mg/dL Total Bilirubin 0.6 0.2-1.0 mg/dL Aspartate Amino Transf (AST/SGOT) 28 10-37 U/L Alanine Aminotransferase (ALT/SGPT) 14 12-78 U/L Alkaline Phosphatase 108 50-136 U/L Total Protein 5.5 L 6.0-8.3 g/dL Albumin 1.8 L 3.5-5.0 g/dL Bedside Glucose Comment Notified Nurse Phosphorus Level 2.5 2.5-4.9 mg/dL Ammonia 39 H 11-32 umol/L Test 09/01/25 12:41 Range/Units B-Type Natriuretic Peptide 810 H 0-100 pg/mL Coagulation Labs: Test 09/02/25 05:05 Range/Units Prothrombin Time 15.9 H 9.6-11.6 SEC Prothromb Time International Ratio 1.57 H 0.85-1.15 DIAGNOSTICS / RADIOLOGY RESULTS: [ ] PLAN NEURO: Minimize central acting medications as possible. Maintain fall precautions, adequate lighting during the day PULMONARY: Supplemental 02 as needed. Maintain aspiration precautions at all times CARDIOVASCULAR: Follow hemodynamics. Vital signs per facility protocol GI & NUTRITION: Continue with nutritional support. Continue stool softeners and laxatives as needed. KIDNEYS & ELECTROLYTES: Strict monitoring of intake, output and overall fluid balance. Avoid nephrotoxic medications to the extent possible. Medications to be dosed according to renal function. Monitor electrolytes and replace as needed ENDOCRINE: Maintain blood glucose between 100-180 at all times. Hypoglycemia protocol in place INFECTIOUS DISEASE: Trend temperature, WBC and procalcitonin level Follow cultures, deescalate antibiotics as soon as possible. Panculture if new onset fever ONCOLOGY/HEMATOLOGY/COAGULATION: Monitor for s/s of bleeding Monitor hemoglobin, coagulation studies as needed SKIN: Pressure ulcer prevention per facility protocol Specialty mattress ORTHO/REHAB: Continue PT/OT Prophylaxis: Continue GI and DVT prophylaxis Code Status: Full Resuscitation Disposition: TBMADINA ROSASP Sep 03, 2025 11:34
--- NOTE | 2025-09-03 17:16 | PN ---
This 55-year-old female seen in her room resting comfortably Patient tolerating diet Patient is volume intake of meals has increased significantly No acute concerns reported at this time Patient is currently pending repeat imaging for potential drain removal of left percutaneous drain From surgical standpoint patient to continue with protein intake Encouraged ambulation Continue with the IV fluids and IV antibiotic At this point in time patient will not likely need PEG if she can continue to increase her volume intake of meals and protein intake Dr. Gann to be updated in patient's status and surgical team to follow patient over the weekend. Thank you Vitals/Labs Vital Signs Date Time Temp Pulse Resp B/P (MAP) Pulse Ox O2 Delivery O2 Flow Rate FiO2 09/03/25 16:00 98.1 61 18 109/55 97 Room Air 09/03/25 07:31 0 21 Laboratory Tests 09/03/25 04:24 Medications Current Medications Octreotide Acetate 50 mcg ONCE ONCE IV Last administered on 08/29/25at 09:02; Start 08/29/25 at 08:30; Stop 08/29/25 at 08:31; Status DC Octreotide Acetate 1250 mcg/ Sodium Chloride 250 ml @ 0 mls/hr PROTOCOL IV Last administered on 08/31/25at 10:18; Start 08/29/25 at 08:30; Stop 09/01/25 at 10:32; Status DC Pantoprazole Sodium 80 mg ONCE ONCE IVP Last administered on 08/29/25at 09:02; Start 08/29/25 at 08:30; Stop 08/29/25 at 08:31; Status DC Pantoprazole Sodium 80 mg/ Sodium Chloride 100 ml @ 10 mls/hr Q10H IV Last administered on 09/01/25at 05:50; Start 08/29/25 at 08:30; Stop 09/01/25 at 10:32; Status DC Promethazine HCl 25 mg ONCE ONCE IM Last administered on 08/29/25at 09:07; Start 08/29/25 at 08:30; Stop 08/29/25 at 08:33; Status DC Sodium Chloride 1,000 ml @ 999 mls/hr Q1H1M IV; Start 08/29/25 at 09:30; Stop 08/29/25 at 09:06; Status DC Calcium Gluconate 1 gm/Sodium Chloride 110 ml @ 110 mls/hr ONCE ONCE IV Last administered on 08/29/25at 09:41; Start 08/29/25 at 09:30; Stop 08/29/25 at 10:29; Status DC Dextrose 50 ml ONCE ONCE IV; Start 08/29/25 at 09:30; Stop 08/29/25 at 09:27; Status DC Insulin Human Regular 5 unit ONCE ONCE IV Last administered on 08/29/25at 09:57; Start 08/29/25 at 09:30; Stop 08/29/25 at 09:31; Status DC Albuterol Sulfate 10 mg ONCE ONCE IH Last administered on 08/29/25at 09:37; Start 08/29/25 at 09:30; Stop 08/29/25 at 09:31; Status DC Lactulose 200 gm ONCE ONCE AK; Start 08/29/25 at 09:30; Stop 08/29/25 at 09:36; Status DC Calcium Gluconate 1 gm ONCE IV; Start 08/29/25 at 09:30; Stop 08/29/25 at 09:23; Status DC Sodium Chloride 1,000 ml @ 125 mls/hr Q8H IV; Start 08/29/25 at 09:30; Stop 08/29/25 at 09:57; Status DC Insulin Human Regular 5 unit ONCE IV; Start 08/29/25 at 09:30; Stop 08/29/25 at 09:25; Status DC Dextrose 50 ml ONCE ONCE IV Last administered on 08/29/25at 09:47; Start 08/29/25 at 09:30; Stop 08/29/25 at 09:31; Status DC Sodium Bicarbonate 50 meq ONCE ONCE IV Last administered on 08/29/25at 09:47; Start 08/29/25 at 09:30; Stop 08/29/25 at 09:31; Status DC Pharmacy Profile Note 1 each ONCE MISC; Start 08/29/25 at 09:30; Stop 08/29/25 at 09:35; Status DC Ondansetron HCl 4 mg Q6H PRN IVP Last administered on 09/03/25at 04:33; Start 08/29/25 at 09:30; Stop 09/28/25 at 09:29 Thiamine HCl 200 mg Q12H IVP Last administered on 09/02/25at 08:56; Start 08/29/25 at 09:30; Stop 09/02/25 at 09:30; Status DC Meropenem 500 mg Q24H IVPB Last administered on 08/30/25at 09:46; Start 08/29/25 at 10:00; Stop 08/31/25 at 09:59; Status DC Sodium Chloride 1,000 ml @ 0 mls/hr ONCE ONCE IV Last administered on 08/29/25at 09:47; Start 08/29/25 at 10:00; Stop 08/29/25 at 10:01; Status DC Dextrose 50 ml AD PRN IV; Start 08/29/25 at 10:00; Stop 09/28/25 at 09:59 Glucagon 1 mg AD PRN IM; Start 08/29/25 at 10:00; Stop 09/28/25 at 09:59 Acetaminophen 650 mg Q6H PRN PO; Start 08/29/25 at 10:00; Stop 09/28/25 at 09:59 Albuterol 1 udvial Q6H PRN IH; Start 08/29/25 at 10:00; Stop 09/28/25 at 09:59 Sodium Bicarbonate 50 meq ONCE ONCE IV Last administered on 08/29/25at 10:12; Start 08/29/25 at 10:00; Stop 08/29/25 at 10:05; Status DC Sodium Bicarbonate 150 meq/Dextrose 1,150 ml @ 125 mls/hr Q9H12M IVP Last administered on 08/30/25at 08:07; Start 08/29/25 at 10:00; Stop 08/30/25 at 10:12; Status DC Insulin Human Regular INSULIN SLIDING SCAL... ACHS SQ Last administered on 09/03/25at 16:15; Start 08/29/25 at 11:30; Stop 09/28/25 at 11:29 Sodium Chloride 1,000 ml @ 0 mls/hr ONCE ONCE IV Last administered on 08/29/25at 13:44; Start 08/29/25 at 11:00; Stop 08/29/25 at 11:06; Status DC Sodium Chloride 1,000 ml @ 200 mls/hr PROTOCOL IV; Start 08/29/25 at 12:30; Stop 08/29/25 at 16:05; Status DC Magnesium Sulfate 50 ml @ 0 mls/hr PROTOCOL IV; Start 08/29/25 at 12:30; Stop 08/29/25 at 16:05; Status DC Insulin Human Regular 100 unit/ Sodium Chloride 101 ml @ 0 mls/hr PROTOCOL IV; Start 08/29/25 at 12:30; Stop 08/29/25 at 16:05; Status DC Dextrose/Sodium Chloride 1,000 ml @ 0 mls/hr AD IV; Start 08/29/25 at 12:30; Stop 08/29/25 at 16:05; Status DC Potassium Chloride 100 ml @ 50 mls/hr AD PRN IV Last administered on 09/02/25at 06:26; Start 08/29/25 at 12:30; Stop 09/28/25 at 12:29 Lidocaine HCl 20 ml STK-MED ONCE .ROUTE; Start 08/29/25 at 14:24; Stop 08/29/25 at 14:25; Status DC Lidocaine HCl 20 ml STK-MED ONCE .ROUTE Last administered on 08/29/25at 15:59; Start 08/29/25 at 14:25; Stop 08/29/25 at 14:25; Status DC Sodium Chloride 1,000 ml @ 0 mls/hr Q0M IV; Start 08/29/25 at 16:00; Stop 08/29/25 at 16:03; Status DC Sodium Chloride 1,000 ml @ 0 mls/hr Q0M IV Last administered on 08/29/25at 16:10; Start 08/29/25 at 16:00; Stop 09/01/25 at 08:01; Status DC Sodium Chloride 250 ml @ 0 mls/hr AD IV; Start 08/29/25 at 17:30; Stop 09/28/25 at 17:29 Sodium Chloride 1,000 ml @ 0 mls/hr ONCE ONCE IV Last administered on 08/29/25at 19:57; Start 08/29/25 at 17:30; Stop 08/29/25 at 17:35; Status DC Sodium Chloride 1,000 ml @ 150 mls/hr Q6H40M IV Last administered on 08/31/25at 16:16; Start 08/29/25 at 18:30; Stop 09/01/25 at 09:29; Status DC Dexmedetomidine/ Sodium Chloride 400 mcg STK-MED ONCE IV; Start 08/29/25 at 19:56; Stop 08/29/25 at 19:56; Status DC Norepinephrine Bitartrate 32 mg/ Sodium Chloride 250 ml @ 0 mls/hr Q0M STAT IV Last administered on 08/29/25at 21:13; Start 08/29/25 at 21:01; Stop 08/29/25 at 21:07; Status DC Magnesium Sulfate 50 ml @ 0 mls/hr PROTOCOL IV Last administered on 09/02/25at 06:25; Start 08/30/25 at 10:00; Stop 09/29/25 at 09:59 Morphine Sulfate 2 mg ONCE ONCE IVP Last administered on 08/31/25at 02:24; Start 08/31/25 at 02:30; Stop 08/31/25 at 02:31; Status DC Potassium Phosphate 250 ml @ 42 mls/hr PROTOCOL ONCE IV Last administered on 08/31/25at 10:11; Start 08/31/25 at 09:00; Stop 08/31/25 at 14:57; Status DC Multivitamins/ Minerals 10 ml/ Chromium/Copper/ Manganese/Zinc 3 ml/Amino Acids/ Electrolytes/ Dextrose 2,000 ml @ 83 mls/hr ONCE ONCE IV Last administered on 08/31/25at 20:53; Start 08/31/25 at 20:00; Stop 09/01/25 at 11:25; Status DC Midodrine 10 mg BID PO; Start 09/01/25 at 09:00; Stop 08/31/25 at 18:36; Status DC Midodrine 10 mg ONCE ONCE PO Last administered on 08/31/25at 18:36; Start 08/31/25 at 18:30; Stop 08/31/25 at 18:31; Status DC Midodrine 10 mg TID PO Last administered on 09/03/25at 13:28; Start 09/01/25 at 09:00; Stop 10/01/25 at 08:59 Pharmacy Profile Note 1 each ONCE MISC; Start 08/31/25 at 23:30; Stop 08/31/25 at 23:17; Status DC Meropenem 500 mg Q24H IVPB Last administered on 09/02/25at 23:34; Start 08/31/25 at 23:30; Stop 09/10/25 at 23:29 Morphine Sulfate 2 mg Q4H PRN IVP Last administered on 09/03/25at 16:10; Start 09/01/25 at 05:30; Stop 09/08/25 at 05:29 Propofol 200 mg STK-MED ONCE IV; Start 09/01/25 at 09:53; Stop 09/01/25 at 09:53; Status DC Ketamine HCl 50 mg STK-MED ONCE .ROUTE; Start 09/01/25 at 09:53; Stop 09/01/25 at 09:53; Status DC Pantoprazole Sodium 40 mg BID IVP Last administered on 09/03/25at 09:16; Start 09/01/25 at 21:00; Stop 09/03/25 at 14:32; Status DC Lactulose 20 gm TID PO Last administered on 09/03/25at 09:15; Start 09/01/25 at 14:00; Stop 10/01/25 at 13:59 Multivitamins/ Minerals 10 ml/ Amino Acids/ Electrolytes/ Dextrose 2,000 ml @ 83 mls/hr ONCE ONCE IV Last administered on 09/01/25at 22:13; Start 09/01/25 at 20:00; Stop 09/02/25 at 20:05; Status DC Magnesium Sulfate 50 ml @ 0 mls/hr PROTOCOL IV; Start 09/02/25 at 13:30; Stop 09/02/25 at 13:04; Status DC Magnesium Sulfate 50 ml @ 0 mls/hr PROTOCOL IV; Start 09/03/25 at 08:00; Stop 09/03/25 at 07:43; Status DC Pantoprazole Sodium 40 mg DAILY PO; Start 09/04/25 at 09:00; Stop 10/04/25 at 08:59 Duloxetine HCl 30 mg BID PO; Start 09/03/25 at 21:00; Stop 10/03/25 at 20:59 BENEDICTO OBRIEN Jr. PAC Sep 03, 2025 17:16
--- NOTE | 2025-09-03 20:08 | PN ---
FOLLOWUP PROGRESS NOTE SUBJECTIVE: A 55-year-old female who initially presented with acute renal failure. The patient did require a short course of dialysis. The patient's renal function has greatly improved. The patient initially presented with significant nausea and vomiting. The patient has been seen by Surgical Service. She did undergo a HIDA scan, results of which are pending, and the patient is being seen as a followup visit for all of the above. REVIEW OF SYSTEMS: CONSTITUTIONAL: The patient is feeling weak and tired. HEENT: No change in vision. No change in hearing. CARDIOVASCULAR: There are no current chest pains or palpitations. PULMONARY: No shortness of breath. GASTROINTESTINAL: She is tolerating a diet. MUSCULOSKELETAL: Complains of weakness. PHYSICAL EXAMINATION: VITAL SIGNS: Blood pressure 111/63, pulse in the 70s. GENERAL: Chronically ill female, lying in bed on the medical floor. HEENT: Head is atraumatic. Pupils are equal, round, and reactive to light. Oropharynx is without exudate. Nares are clear. NECK: There is no JVP. There is no thyromegaly, no masses. CARDIOVASCULAR: Regular. There is no S3 or S4 gallop. LUNGS: Coarse with equal thoracic movement. ABDOMEN: Soft, nondistended, and nontender. EXTREMITIES: Reveal no clubbing, no cyanosis. NEUROLOGICAL: She is awake. She is alert. LABORATORY DATA: Hemoglobin 9 and hematocrit 27. Sodium 136, potassium 4, BUN 17, creatinine 0.7. IMPRESSION: * Acute renal failure. * Diabetes mellitus. * Hypertension. * Cholecystitis. PLAN: The patient's renal function is much improved. No further need for any form of renal replacement therapy. The patient's Shaggy catheter has been removed. Workup is ongoing per Surgical Service. Blood pressure is under adequate control. Electrolytes have all been aggressively repleted. TID: [id number] RECEIPT: [id number]
--- NOTE | 2025-09-03 23:47 | PN ---
INFECTIOUS DISEASE PROGRESS NOTE Date of Service: Sep 03, 2025 SUBJECTIVE: Small amount of serous sanguineous drainage observed on the Perisplenic drainage catheter according bag. The cholecystostomy tube was removed on 09/01/2025. Remains afebrile and the WBC is 5.5. We will continue on Meropenem. We will continue to monitor patient closely. PHYSICAL EXAM EYES: Anicteric. Pupils equal and reactive. HENT: No oral thrush seen, moist Oral mucosa. NECK: Supple, no JVD or thyromegaly. LUNGS: Good air entry. No rales, no rhonchi. CARDIOVASCULAR: S1, S2 regular. No murmur heard. ABDOMEN: Soft, non tender, bowel sounds present. Right ileostomy. Left Perisplenic abscess percutaneous drainage catheter. CENTRAL NERVOUS SYSTEM: Awake, alert, oriented x 3. SKIN: No rashes, no swelling. LYMPHATICS: No peripheral lymphadenopathy. MUSCULOSKELETAL: No joint swelling, erythema or tenderness. EXTREMITIES: No cyanosis or clubbing. BACK: No deformity, no pressure ulcer. GENITOURINARY: No dysuria or hematuria. Dueñas catheter. Vital Sign (Last 12 Hours) 09/03/25 09/03/25 09/03/25 12:00 16:00 20:14 Temp 98.4 98.1 98.4 Pulse 66 61 68 Resp 18 18 20 B/P (MAP) 98/67 109/55 108/66 Pulse Ox 96 97 94 O2 Delivery Room Air Room Air Room Air Intake & Output (last 24hrs) 09/02/25 09/02/25 09/03/25 15:00 23:00 07:00 Intake Total 416.0 ml 832.0 ml Output Total 300 ml 350 ml 1470 ml Balance 116.0 ml 482.0 ml -1470 ml LABS: Laboratory: Test 09/03/25 19:42 09/03/25 04:24 09/02/25 16:14 09/02/25 05:05 Range/Units Whole Blood Glucose 112 H 70-110 MG/DL White Blood Count 5.5 4.8-10.8 K/uL Red Blood Count 2.95 L 4.00-5.50 MIL/uL Hemoglobin 9.0 L 12.0-16.0 g/dL Hematocrit 27.9 L 36-48 % Mean Corpuscular Volume 94.6 79-99 fL Mean Corpuscular Hemoglobin 30.5 27.0-33.0 pg Mean Corpuscular Hemoglobin Concent 32.3 32.0-36.0 g/dL Red Cell Distribution Width 17.6 H 11.0-15.5 % Platelet Count 86 L 130-400 K/uL Mean Platelet Volume 10.4 7.5-10.5 fL Nucleated Red Blood Cells 0.0 0.0-0.19 % Sodium Level 136 136-145 mmol/L Potassium Level 4.1 3.5-5.1 mmol/L Chloride Level 105 101-111 mmol/L Carbon Dioxide Level 25 21-32 mmol/L Blood Urea Nitrogen 17 7-18 mg/dL Creatinine 0.7 0.5-1.0 mg/dL Glomerular Filtration Rate Calc 101 >90 mL/min Random Glucose 122 H 70-105 mg/dL Total Calcium 7.7 L 8.5-10.1 mg/dL Magnesium Level 1.40 L 1.80-2.40 mg/dL Total Bilirubin 0.6 0.2-1.0 mg/dL Aspartate Amino Transf (AST/SGOT) 28 10-37 U/L Alanine Aminotransferase (ALT/SGPT) 14 12-78 U/L Alkaline Phosphatase 108 50-136 U/L Total Protein 5.5 L 6.0-8.3 g/dL Albumin 1.8 L 3.5-5.0 g/dL Bedside Glucose Comment Notified Nurse Prothrombin Time 15.9 H 9.6-11.6 SEC Prothromb Time International Ratio 1.57 H 0.85-1.15 Phosphorus Level 2.5 2.5-4.9 mg/dL Ammonia 39 H 11-32 umol/L ASSESSMENT: Acute hypoxic respiratory failure requiring oxygen support, resolved. Possible Sepsis. Gastrointestinal bleeding, status post EGD. Acute renal failure requiring dialysis, resolved. Dehydration, resolving. Hypokalemia, resolved. Anemia. Thrombocytopenia. Diabetes mellitus. Cholecystostomy tube placement on 08/02/2025 due to acute cholecystitis, s/p removal on 09/01/2025. Perisplenic abscess with a recent CT-guided drainage placement on 08/09/2025. Recent laparoscopy, abdominal washout, ileostomy creation on 07/21/2025. PLAN: Continue Meropenem. Continue antidiabetics. Monitor for bleeding. Continue IV fluids. Continue Protonix. Continue pain management. This case was reviewed and discussed with my supervising physician Dr. Tripathi and the above assessment and plan was formulated and agreed upon. ATTESTATION BY PHYSICIAN I have seen and examined the patient. I reviewed the documentation, medical decision making, and treatment plan as noted by the mid-level provider above. I agree with the findings and plan of care. AMIE TRIPATHI MD, [facility] Sep 03, 2025 23:47
[2025-09-04] VITALS (7 sets, daily range): BP systolic 105–115; BP diastolic 55–67; PULSE 60–75; RESP 17–20; TEMP 97.9–98.2; O2SAT 95
[2025-09-04 04:52] LABS: NUCLEATED RED BLOOD CELLS 0.0 % (0.0-0.19); PLATELET COUNT (AUTO) 86.0 K/uL (130-400); RED BLOOD CELL COUNT(AUTO) 3.2 MIL/uL (4.00-5.50); RED CELL DISTRIBUTION WIDTH 17.5 % (11.0-15.5); WHITE BLOOD COUNT (AUTO) 6.1 K/uL (4.8-10.8)
[2025-09-04 05:08] LABS: CREATININE 0.6 mg/dL (0.5-1.0); GLOMERULAR FILTR. RATE CALC 105.0 mL/min (>90); GLUCOSE,RANDOM 132.0 mg/dL (70-105); SODIUM SERUM 134.0 mmol/L (136-145); UREA NITROGEN, BLOOD 11.0 mg/dL (7-18)
--- NOTE | 2025-09-04 10:26 | PN ---
Patient is status post acute dehydration and GI bleed. Has been hemodynamically stable. Making good urine. Tolerating her diet well. Ostomy output has been relatively high and very liquid. Patient still has a Dueñas in place. Left upper quadrant drain still in place Assessment and plan Patient tolerating diet. Ostomy output seems very high. We need to add fiber 3 times a day. To avoid her getting dehydrated again. Continue diet as tolerated. Evaluate starting bladder training to be able to remove the Dueñas later on. Vitals/Labs Vital Signs Date Time Temp Pulse Resp B/P (MAP) Pulse Ox O2 Delivery O2 Flow Rate FiO2 09/04/25 08:00 98.1 70 20 105/64 96 Room Air 09/03/25 20:00 0 21 Laboratory Tests 09/04/25 04:44 Medications Current Medications Octreotide Acetate 50 mcg ONCE ONCE IV Last administered on 08/29/25at 09:02; Start 08/29/25 at 08:30; Stop 08/29/25 at 08:31; Status DC Octreotide Acetate 1250 mcg/ Sodium Chloride 250 ml @ 0 mls/hr PROTOCOL IV Last administered on 08/31/25at 10:18; Start 08/29/25 at 08:30; Stop 09/01/25 at 10:32; Status DC Pantoprazole Sodium 80 mg ONCE ONCE IVP Last administered on 08/29/25at 09:02; Start 08/29/25 at 08:30; Stop 08/29/25 at 08:31; Status DC Pantoprazole Sodium 80 mg/ Sodium Chloride 100 ml @ 10 mls/hr Q10H IV Last administered on 09/01/25at 05:50; Start 08/29/25 at 08:30; Stop 09/01/25 at 10:32; Status DC Promethazine HCl 25 mg ONCE ONCE IM Last administered on 08/29/25at 09:07; Start 08/29/25 at 08:30; Stop 08/29/25 at 08:33; Status DC Sodium Chloride 1,000 ml @ 999 mls/hr Q1H1M IV; Start 08/29/25 at 09:30; Stop 08/29/25 at 09:06; Status DC Calcium Gluconate 1 gm/Sodium Chloride 110 ml @ 110 mls/hr ONCE ONCE IV Last administered on 08/29/25at 09:41; Start 08/29/25 at 09:30; Stop 08/29/25 at 10:29; Status DC Dextrose 50 ml ONCE ONCE IV; Start 08/29/25 at 09:30; Stop 08/29/25 at 09:27; Status DC Insulin Human Regular 5 unit ONCE ONCE IV Last administered on 08/29/25at 09:57; Start 08/29/25 at 09:30; Stop 08/29/25 at 09:31; Status DC Albuterol Sulfate 10 mg ONCE ONCE IH Last administered on 08/29/25at 09:37; Start 08/29/25 at 09:30; Stop 08/29/25 at 09:31; Status DC Lactulose 200 gm ONCE ONCE LA; Start 08/29/25 at 09:30; Stop 08/29/25 at 09:36; Status DC Calcium Gluconate 1 gm ONCE IV; Start 08/29/25 at 09:30; Stop 08/29/25 at 09:23; Status DC Sodium Chloride 1,000 ml @ 125 mls/hr Q8H IV; Start 08/29/25 at 09:30; Stop 08/29/25 at 09:57; Status DC Insulin Human Regular 5 unit ONCE IV; Start 08/29/25 at 09:30; Stop 08/29/25 at 09:25; Status DC Dextrose 50 ml ONCE ONCE IV Last administered on 08/29/25at 09:47; Start 08/29/25 at 09:30; Stop 08/29/25 at 09:31; Status DC Sodium Bicarbonate 50 meq ONCE ONCE IV Last administered on 08/29/25at 09:47; Start 08/29/25 at 09:30; Stop 08/29/25 at 09:31; Status DC Pharmacy Profile Note 1 each ONCE MISC; Start 08/29/25 at 09:30; Stop 08/29/25 at 09:35; Status DC Ondansetron HCl 4 mg Q6H PRN IVP Last administered on 09/03/25at 04:33; Start 08/29/25 at 09:30; Stop 09/28/25 at 09:29 Thiamine HCl 200 mg Q12H IVP Last administered on 09/02/25at 08:56; Start 08/29/25 at 09:30; Stop 09/02/25 at 09:30; Status DC Meropenem 500 mg Q24H IVPB Last administered on 08/30/25at 09:46; Start 08/29/25 at 10:00; Stop 08/31/25 at 09:59; Status DC Sodium Chloride 1,000 ml @ 0 mls/hr ONCE ONCE IV Last administered on 08/29/25at 09:47; Start 08/29/25 at 10:00; Stop 08/29/25 at 10:01; Status DC Dextrose 50 ml AD PRN IV; Start 08/29/25 at 10:00; Stop 09/28/25 at 09:59 Glucagon 1 mg AD PRN IM; Start 08/29/25 at 10:00; Stop 09/28/25 at 09:59 Acetaminophen 650 mg Q6H PRN PO; Start 08/29/25 at 10:00; Stop 09/28/25 at 09:59 Albuterol 1 udvial Q6H PRN IH; Start 08/29/25 at 10:00; Stop 09/28/25 at 09:59 Sodium Bicarbonate 50 meq ONCE ONCE IV Last administered on 08/29/25at 10:12; Start 08/29/25 at 10:00; Stop 08/29/25 at 10:05; Status DC Sodium Bicarbonate 150 meq/Dextrose 1,150 ml @ 125 mls/hr Q9H12M IVP Last administered on 08/30/25at 08:07; Start 08/29/25 at 10:00; Stop 08/30/25 at 10:12; Status DC Insulin Human Regular INSULIN SLIDING SCAL... ACHS SQ Last administered on 09/03/25at 16:15; Start 08/29/25 at 11:30; Stop 09/28/25 at 11:29 Sodium Chloride 1,000 ml @ 0 mls/hr ONCE ONCE IV Last administered on 08/29/25at 13:44; Start 08/29/25 at 11:00; Stop 08/29/25 at 11:06; Status DC Sodium Chloride 1,000 ml @ 200 mls/hr PROTOCOL IV; Start 08/29/25 at 12:30; Stop 08/29/25 at 16:05; Status DC Magnesium Sulfate 50 ml @ 0 mls/hr PROTOCOL IV; Start 08/29/25 at 12:30; Stop 08/29/25 at 16:05; Status DC Insulin Human Regular 100 unit/ Sodium Chloride 101 ml @ 0 mls/hr PROTOCOL IV; Start 08/29/25 at 12:30; Stop 08/29/25 at 16:05; Status DC Dextrose/Sodium Chloride 1,000 ml @ 0 mls/hr AD IV; Start 08/29/25 at 12:30; Stop 08/29/25 at 16:05; Status DC Potassium Chloride 100 ml @ 50 mls/hr AD PRN IV Last administered on 09/02/25at 06:26; Start 08/29/25 at 12:30; Stop 09/28/25 at 12:29 Lidocaine HCl 20 ml STK-MED ONCE .ROUTE; Start 08/29/25 at 14:24; Stop 08/29/25 at 14:25; Status DC Lidocaine HCl 20 ml STK-MED ONCE .ROUTE Last administered on 08/29/25at 15:59; Start 08/29/25 at 14:25; Stop 08/29/25 at 14:25; Status DC Sodium Chloride 1,000 ml @ 0 mls/hr Q0M IV; Start 08/29/25 at 16:00; Stop 08/29/25 at 16:03; Status DC Sodium Chloride 1,000 ml @ 0 mls/hr Q0M IV Last administered on 08/29/25at 16:10; Start 08/29/25 at 16:00; Stop 09/01/25 at 08:01; Status DC Sodium Chloride 250 ml @ 0 mls/hr AD IV; Start 08/29/25 at 17:30; Stop 09/28/25 at 17:29 Sodium Chloride 1,000 ml @ 0 mls/hr ONCE ONCE IV Last administered on 08/29/25at 19:57; Start 08/29/25 at 17:30; Stop 08/29/25 at 17:35; Status DC Sodium Chloride 1,000 ml @ 150 mls/hr Q6H40M IV Last administered on 08/31/25at 16:16; Start 08/29/25 at 18:30; Stop 09/01/25 at 09:29; Status DC Dexmedetomidine/ Sodium Chloride 400 mcg STK-MED ONCE IV; Start 08/29/25 at 19:56; Stop 08/29/25 at 19:56; Status DC Norepinephrine Bitartrate 32 mg/ Sodium Chloride 250 ml @ 0 mls/hr Q0M STAT IV Last administered on 08/29/25at 21:13; Start 08/29/25 at 21:01; Stop 08/29/25 at 21:07; Status DC Magnesium Sulfate 50 ml @ 0 mls/hr PROTOCOL IV Last administered on 09/03/25at 23:39; Start 08/30/25 at 10:00; Stop 09/29/25 at 09:59 Morphine Sulfate 2 mg ONCE ONCE IVP Last administered on 08/31/25at 02:24; Start 08/31/25 at 02:30; Stop 08/31/25 at 02:31; Status DC Potassium Phosphate 250 ml @ 42 mls/hr PROTOCOL ONCE IV Last administered on 08/31/25at 10:11; Start 08/31/25 at 09:00; Stop 08/31/25 at 14:57; Status DC Multivitamins/ Minerals 10 ml/ Chromium/Copper/ Manganese/Zinc 3 ml/Amino Acids/ Electrolytes/ Dextrose 2,000 ml @ 83 mls/hr ONCE ONCE IV Last administered on 08/31/25at 20:53; Start 08/31/25 at 20:00; Stop 09/01/25 at 11:25; Status DC Midodrine 10 mg BID PO; Start 09/01/25 at 09:00; Stop 08/31/25 at 18:36; Status DC Midodrine 10 mg ONCE ONCE PO Last administered on 08/31/25at 18:36; Start 08/31/25 at 18:30; Stop 08/31/25 at 18:31; Status DC Midodrine 10 mg TID PO Last administered on 09/04/25at 08:55; Start 09/01/25 at 09:00; Stop 10/01/25 at 08:59 Pharmacy Profile Note 1 each ONCE MISC; Start 08/31/25 at 23:30; Stop 08/31/25 at 23:17; Status DC Meropenem 500 mg Q24H IVPB Last administered on 09/03/25at 23:34; Start 08/31/25 at 23:30; Stop 09/10/25 at 23:29 Morphine Sulfate 2 mg Q4H PRN IVP Last administered on 09/04/25at 05:08; Start 09/01/25 at 05:30; Stop 09/08/25 at 05:29 Propofol 200 mg STK-MED ONCE IV; Start 09/01/25 at 09:53; Stop 09/01/25 at 09:53; Status DC Ketamine HCl 50 mg STK-MED ONCE .ROUTE; Start 09/01/25 at 09:53; Stop 09/01/25 at 09:53; Status DC Pantoprazole Sodium 40 mg BID IVP Last administered on 09/03/25at 09:16; Start 09/01/25 at 21:00; Stop 09/03/25 at 14:32; Status DC Lactulose 20 gm TID PO Last administered on 09/04/25at 08:55; Start 09/01/25 at 14:00; Stop 10/01/25 at 13:59 Multivitamins/ Minerals 10 ml/ Amino Acids/ Electrolytes/ Dextrose 2,000 ml @ 83 mls/hr ONCE ONCE IV Last administered on 09/01/25at 22:13; Start 09/01/25 at 20:00; Stop 09/02/25 at 20:05; Status DC Magnesium Sulfate 50 ml @ 0 mls/hr PROTOCOL IV; Start 09/02/25 at 13:30; Stop 09/02/25 at 13:04; Status DC Magnesium Sulfate 50 ml @ 0 mls/hr PROTOCOL IV; Start 09/03/25 at 08:00; Stop 09/03/25 at 07:43; Status DC Pantoprazole Sodium 40 mg DAILY PO Last administered on 09/04/25at 08:56; Start 09/04/25 at 09:00; Stop 10/04/25 at 08:59 Duloxetine HCl 30 mg BID PO Last administered on 09/04/25at 08:55; Start 09/03/25 at 21:00; Stop 10/03/25 at 20:59 Psyllium Hydrophilic Mucilloid 1 tbs TID PO; Start 09/04/25 at 14:00; Stop 10/04/25 at 13:59 SUSAN JHAVERI MD Sep 04, 2025 10:26
--- NOTE | 2025-09-04 12:10 | PN ---
FOLLOWUP PROGRESS NOTE SUBJECTIVE: A 55-year-old female initially presented with acute renal failure. The patient did receive 1 session of dialysis secondary to significant hyperkalemia. The patient's renal function has greatly improved. She has been transferred out to medical floor and the patient is being seen as a follow-up visit for all of the above. REVIEW OF SYSTEMS: GENERAL: She is feeling improved. HEENT: No change in vision. No change in hearing. CARDIOVASCULAR: No current chest pains or palpitations. PULMONARY: No shortness of breath. GASTROINTESTINAL: She is tolerating a diet. MUSCULOSKELETAL: Complaints of weakness. PHYSICAL EXAMINATION: VITAL SIGNS: Blood pressure is 105/64. Pulse is in the 70s. GENERAL: Chronically ill female, much older than appearing. HEENT: Head is atraumatic. Pupils are equal, round, and reactive to light. Oropharynx without exudates. Nares clear. NECK: There is no JVP. There is no thyromegaly or mass. CARDIOVASCULAR: Regular. There is no S3 or S4 gallop. LUNGS: Coarse with equal thoracic movement. ABDOMEN: Soft, nondistended, and nontender. EXTREMITIES: No clubbing or cyanosis. NEUROLOGICAL: She is awake and alert. LABORATORY DATA: Sodium 134, potassium 4, BUN 11, creatinine 0.6. Hemoglobin 9.9, hematocrit 30. IMPRESSION: * Acute renal failure. * Diabetes mellitus. * Hypotension. * Electrolyte abnormalities. PLAN: The patient's creatinine is much improved. She continues with midodrine for the hypotension. Electrolytes have all been aggressively repleted. The patient has been seen by the Surgical service and continues with the conservative management. We will continue to follow closely. All labs can be repeated in the a.m. TID: [id number] RECEIPT: [id number]
[2025-09-04] MEDS: PSYLLIUM SEED 1 EACH PACKET PO SCH (14:14)
--- NOTE | 2025-09-04 14:34 | PN ---
[facility] PROGRESS NOTE Date of Service: Sep 04, 2025 Time of Service: 14:28 SUBJECTIVE: As per admission notes "50-year-old female with underlying history of type 2 diabetes mellitus, history of liver cirrhosis, prior history of esophageal varices requiring banding in May,, history of robotic sigmoid resection with takedown of colovesical fistula who was recently hospitalized in [facility] from 07/20/2025 - 08/25/2025 patient was found to have bilious peritonitis with 2 mm perforation of colonic anastomosis requiring diagnostic laparoscopy, abdominal washout and drain placement with creation of diverting loop ileostomy. Patient was hospitalized for about one month and subsequently required IR guided drain placement as well. She was just discharged from the hospital on 08/25/2025. Patient's daughter reports that patient was having nausea and vomiting with poor oral intake at home. She started to have coffee-ground emesis today and she also noticed some right streaks of blood with a coffee-ground emesis. Stool has also been dark in the ileostomy bag. Patient is having moderate intensity abdominal pain as well. She has not been taking any NSAIDs. Daughter reports that patient has been very weak since her discharge in very debilitated. Patient denies active chest pain. Denies active shortness of breath. On presentation to the hospital, patient was noted to be afebrile with T-max of 97.5 F, heart rate of 100, blood pressure of 127/91. [place] [address], hemoglobin of 16.4, platelet count of 177528. BMP was repeated twice, BMP showed sodium of 117, potassium 7.0, chloride of 88, CO2 of seven, BUN of 83, creatinine 5.0, blood glucose of 99, calcium 10.4. Blood gas showed pH of 7.28, bicarb of close to eight, CO2 of 18, lactic acid of three. Patient will be admitted to ICU. Patient is presenting with severe renal failure with hyperkalemia and severe metabolic acidosis. Patient also with concerns for upper GI bleeding with coffee-ground emesis. Patient remains critically ill consultation with Intensive Care, Nephrology, GI will be requested. We we will obtain a CT abdomen pelvis without contrast for further evaluation as well. Patient is critically ill. Plan of care was discussed with patient and daughter at bedside" 08/30/2025 Patient was seen and examined at bedside. Her blood pressure has been low, 88/54, heart rate 86. She is currently on Levophed 0.2 Mcg, octreotide, Protonix, sodium bicarbonate drip. She received 2nd hemodialysis session yesterday. As per Nephrology, she will continue to receive dialysis inpatient. Her high anion gap metabolic acidosis is improving with sodium 134, carbon dioxide 31, chloride 96. Her creatinine has trended down from 5-1.8. General surgery consult is on board and we will follow up with their recommendations. Additionally, in the light of history of liver cirrhosis with esophageal varices, her recent hematemesis will be evaluated with GI consult and possible endoscopy. We discussed this with the patient and her family members present besides. Patient is started on Merrem and blood culture, urine cultures show no growth so far. Her lactic acid has trended down from 3.1 to 2.1. 08/31/2025 Patient was seen and examined at bedside in room 214. She continues to be on Levophed 0.1 which is being weaned off. She is also on Sandostatin and Protonix drip. Patient complained of mild pain along the sides of her drain but denied any nausea or episode of vomiting since Saturday. Minimal drainage was noted. Sodium bicarb was discontinued as per Nephrology. Her lab markers have improved with sodium 141, chloride 104, bicarb 32, creatinine 1, BUN 16, ammonia 34. Her urine sodium was less than 20 consistent with prerenal CYNTHIA. We are pending blood and urine culture results. Her total output in the past24 hours has been optimal, 2069. She is on sodium chloride 150 mL/hour. We are following gastroenterology recommendations of possible upper endoscopy in the morning if patient condition remains stable. 09/01/2025 Patient was seen and examined at bedside. She is off vasopressor support and is hemodynamically stable. Her chest x-ray showed opacity in the left lower lobe and we will follow up with CT scan of chest. She is started on 2nd day of ppm today. She successfully underwent EGD which showed small, less than 5 mm, esophageal varices with scar in the lower 3rd of the esophagus. Patient was noted to have portal hypertensive gastropathy which was biopsied. Duodenum was normal during examination. Patient is receiving Merrem and her blood culture and urine cultures have shown no growth so far. Due to her elevated ammonia levels, she will be started on lactulose. We will proceed with caution with respect to normal saline as patient's BNP is elevated. 09/02/2025 The patient has been seen and examined earlier this morning during my rounding, case discussed with the RN, no acute events overnight, blood pressure 118/71, h eart rate of 56, afebrile, saturating normal on room air, CBC showing hemoglobin 8.5, hematocrit 36.8, WBC of 4.4, platelet count of 99, sodium 137, potassium 3.8, BUN of 18, creatinine 0.7, magnesium Lasix. Results of blood culture no growth after four days. Urine culture no growth. EGD reviewed, small less than 5 mm esophageal varices with scar in the lower 3rd of the esophagus. Patient with a bottle hypertensive gastropathy, status post biopsy, duodenum was normal during examination. Patient to be downgraded to the medical floor, continue banana bag, continue Protonix 40 mg IV b.i.d.. Plan for possible PEG tube placement. 09/03/2025 Patient was seen and examined at bedside. She has been advanced to GI soft bland diet which she is tolerating really well and having output in her ileostomy bag. As per surgeon, if she continues to tolerate diet, she may not require G-tube placement on discharge. Patient did not complain of any significant pain and seemed to be doing really well. Her cholecystostomy tube was removed but her splenic percutaneous tube is still in position and may require further IR intervention for repositioning due to persistent and mildly increased perisplenic fluid collection. She is receiving lactulose and her ammonia levels have gone down. Her acute renal failure continues to resolve and her vitals are also stable. No growth on urine and blood culture so far. We have shifted her from Protonix IV to p.o. as per GI recommendations. 09/04/2025 Patient was seen and examined at bedside in room 302. She has been tolerating GI soft bland diet, ileostomy output seems very high, liquid consistency and patient will be receiving fiber 3 times a day. Patient may require further IR intervention on Saturday for splenic drain reposition due to persistent and mildly increased perisplenic fluid collection. Vitals are stable, blood and urine culture shows no growth so far. REVIEW OF SYSTEMS CONSTITUTIONAL: malaise, poor oral intake -resolving NEUROLOGICAL: Denies headache, amaurosis fugax, motor weakness, sensory deficit, vertigo/spinning sensation, gait abnormalities, or tremors. ENT: No hearing loss, otalgia, otorrhea, rhinitis, rhinorrhea, hoarseness, or sore throat. CARDIOVASCULAR: Denies any exertional angina, dyspnea on exertion, orthopnea, paroxysmal nocturnal dyspnea, palpitations, life-threatening arrhythmias, claudication. PULMONARY: Denies any shortness of breath, cough, phlegm/sputum, hemoptysis, pleuritic chest pain. SLEEP: Denies morning headaches, daytime somnolence or napping. Denies difficulty falling asleep, staying asleep, waking from sleep. Denies knowledge of snoring. GASTROINTESTINAL: nausea, vomiting, abdominal pain, melena, coffee ground emesis - resolved GENITOURINARY: Urine output was very low - resolving ENDOCRINOLOGIC: Denies polyuria, polydipsia, polyphagia or heat/cold intolerances. PHYSICAL EXAM GENERAL APPEARANCE: The patient is awake, alert, and oriented, answering to all questions with very mild pain around her drains. NEUROLOGICAL: Cranial nerves II-XII grossly intact. Neurological examination is non focal with spontaneous movement of upper and lower extremities HEENT: Face is symmetric. Pupils are equal and reactive. Extraocular movements are intact. NECK: Supple. No JVD. No thyromegaly. No submental, submandibular, pre- /postauricular, occipital or supraclavicular lymphadenopathy. CHEST: Normal chest expansion. No Telemetry. LUNGS: Absence of any rales, rhonchi or any wheezing. CARDIOVASCULAR: Regular. S1 and S2 normal. No appreciable rubs, murmurs or gallops. ABDOMEN: no rebound noted, there is abdominal drain noted with ileostomy bag. : Deferred. EXTREMITIES: Non-edematous and not cyanotic. No clubbing. Vital Signs (last 8hr) Date Time Temp Pulse Resp B/P (MAP) Pulse Ox O2 Delivery O2 Flow Rate FiO2 09/04/25 12:00 98.1 60 20 113/59 96 Room Air 09/04/25 08:00 98.1 70 20 105/64 96 Room Air LABS: Laboratory: Test 09/04/25 11:01 09/04/25 04:44 09/03/25 04:24 09/02/25 16:14 Range/Units Whole Blood Glucose 142 H 70-110 MG/DL White Blood Count 6.1 4.8-10.8 K/uL Red Blood Count 3.20 L 4.00-5.50 MIL/uL Hemoglobin 9.9 L 12.0-16.0 g/dL Hematocrit 30.1 L 36-48 % Mean Corpuscular Volume 94.1 79-99 fL Mean Corpuscular Hemoglobin 30.9 27.0-33.0 pg Mean Corpuscular Hemoglobin Concent 32.9 32.0-36.0 g/dL Red Cell Distribution Width 17.5 H 11.0-15.5 % Platelet Count 86 L 130-400 K/uL Mean Platelet Volume 10.0 7.5-10.5 fL Nucleated Red Blood Cells 0.0 0.0-0.19 % Sodium Level 134 L 136-145 mmol/L Potassium Level 4.0 3.5-5.1 mmol/L Chloride Level 106 101-111 mmol/L Carbon Dioxide Level 22 21-32 mmol/L Blood Urea Nitrogen 11 7-18 mg/dL Creatinine 0.6 0.5-1.0 mg/dL Glomerular Filtration Rate Calc 105 >90 mL/min Random Glucose 132 H 70-105 mg/dL Total Calcium 8.0 L 8.5-10.1 mg/dL Magnesium Level 1.90 1.80-2.40 mg/dL Total Bilirubin 0.6 0.2-1.0 mg/dL Aspartate Amino Transf (AST/SGOT) 28 10-37 U/L Alanine Aminotransferase (ALT/SGPT) 14 12-78 U/L Alkaline Phosphatase 108 50-136 U/L Total Protein 5.5 L 6.0-8.3 g/dL Albumin 1.8 L 3.5-5.0 g/dL Bedside Glucose Comment Notified Nurse Current Medications Medications (Trade) Dose Ordered Sig/Gregory Route PRN Reason Start Time Stop Time Status Last Admin Dose Admin Acetaminophen (TYLenol 325MG TAB) 650 mg Q6H PRN PO MILD PAIN (1-3) 08/29/25 10:00 09/28/25 09:59 Albuterol (DUOneb) 1 udvial Q6H PRN IH SHORTNESS OF BREATH 08/29/25 10:00 09/28/25 09:59 Calcium Gluconate (Calcium Gluc 1gm Vial) 1 gm ONCE IV 08/29/25 09:30 08/29/25 09:23 DC Dextrose (D50w) 50 ml AD PRN IV HYPOGLYCEMIA PROTOCOL 08/29/25 10:00 09/28/25 09:59 Dextrose/Sodium Chloride 1,000 ml @ 0 mls/hr AD IV 08/29/25 12:30 08/29/25 16:05 DC Duloxetine HCl (CymbALTA 30 mg CAP) 30 mg BID PO 09/03/25 21:00 10/03/25 20:59 09/04/25 08:55 30 MG Glucagon (Glucagon 1mg Kit) 1 mg AD PRN IM HYPOGLYCEMIA PROTOCOL 08/29/25 10:00 09/28/25 09:59 Insulin Human Regular (humuLIN R 100 UNIT/ML 3ML) 5 unit ONCE IV 08/29/25 09:30 08/29/25 09:25 DC Insulin Human Regular (humuLIN R 100 UNIT/ML 3ML) INSULIN SLIDING SCAL... ACHS SQ 08/29/25 11:30 09/28/25 11:29 09/03/25 16:15 2 UNIT Insulin Human Regular 100 unit/ Sodium Chloride 101 ml @ 0 mls/hr PROTOCOL IV 08/29/25 12:30 08/29/25 16:05 DC Lactulose (Constulose 20gm/ 30ml Udcup) 20 gm TID PO 09/01/25 14:00 10/01/25 13:59 09/04/25 08:55 20 GM Magnesium Sulfate 50 ml @ 0 mls/hr PROTOCOL IV 08/29/25 12:30 08/29/25 16:05 DC Magnesium Sulfate 50 ml @ 0 mls/hr PROTOCOL IV 08/30/25 10:00 09/29/25 09:59 09/03/25 23:39 25 MLS/HR Magnesium Sulfate 50 ml @ 0 mls/hr PROTOCOL IV 09/02/25 13:30 09/02/25 13:04 DC Magnesium Sulfate 50 ml @ 0 mls/hr PROTOCOL IV 09/03/25 08:00 09/03/25 07:43 DC Meropenem (Merrem 500mg) 500 mg Q24H IVPB 08/29/25 10:00 08/31/25 09:59 DC 08/30/25 09:46 500 MG Meropenem (Merrem 500mg) 500 mg Q24H IVPB 08/31/25 23:30 09/10/25 23:29 09/03/25 23:34 500 MG Midodrine (PROAMatine 5 MG TABLET) 10 mg BID PO 09/01/25 09:00 08/31/25 18:36 DC Midodrine (PROAMatine 5 MG TABLET) 10 mg TID PO 09/01/25 09:00 10/01/25 08:59 09/04/25 14:14 10 MG Morphine Sulfate (morPHINE 2MG SYG) 2 mg Q4H PRN IVP SEVERE PAIN (7-10) 09/01/25 05:30 09/08/25 05:29 09/04/25 05:08 2 MG Norepinephrine Bitartrate 32 mg/ Sodium Chloride 250 ml @ 0 mls/hr Q0M STAT IV 08/29/25 21:01 08/29/25 21:07 DC 08/29/25 21:13 0 MLS/HR Octreotide Acetate 1250 mcg/ Sodium Chloride 250 ml @ 0 mls/hr PROTOCOL IV 08/29/25 08:30 09/01/25 10:32 DC 08/31/25 10:18 5 MLS/HR Ondansetron HCl (zoFRAN 4MG INJ) 4 mg Q6H PRN IVP NAUSEA/VOMITING 08/29/25 09:30 09/28/25 09:29 09/03/25 04:33 4 MG Pantoprazole Sodium (PROTonix 40MG INJ) 40 mg BID IVP 09/01/25 21:00 09/03/25 14:32 DC 09/03/25 09:16 40 MG Pantoprazole Sodium (PROTonix 40MG TAB) 40 mg DAILY PO 09/04/25 09:00 10/04/25 08:59 09/04/25 08:56 40 MG Pantoprazole Sodium 80 mg/ Sodium Chloride 100 ml @ 10 mls/hr Q10H IV 08/29/25 08:30 09/01/25 10:32 DC 09/01/25 05:50 10 MLS/HR Pharmacy Profile Note (Pharmacy Communication) 1 each ONCE MISC 08/29/25 09:30 08/29/25 09:35 DC Pharmacy Profile Note (Pharmacy Communication) 1 each ONCE MISC 08/31/25 23:30 08/31/25 23:17 DC Potassium Chloride 100 ml @ 50 mls/hr AD PRN IV POTASSIUM PROTOCOL 08/29/25 12:30 09/28/25 12:29 09/02/25 06:26 50 MLS/HR Psyllium Hydrophilic Mucilloid (Metamucil) 1 tbs TID PO 09/04/25 14:00 10/04/25 13:59 09/04/25 14:14 1 TBS Sodium Bicarbonate 150 meq/Dextrose 1,150 ml @ 125 mls/hr Q9H12M IVP 08/29/25 10:00 08/30/25 10:12 DC 08/30/25 08:07 125 MLS/HR Sodium Chloride 250 ml @ 0 mls/hr AD IV 08/29/25 17:30 09/28/25 17:29 Sodium Chloride 1,000 ml @ 0 mls/hr Q0M IV 08/29/25 16:00 08/29/25 16:03 DC Sodium Chloride 1,000 ml @ 0 mls/hr Q0M IV 08/29/25 16:00 09/01/25 08:01 DC 08/29/25 16:10 500 MLS/HR Sodium Chloride 1,000 ml @ 125 mls/hr Q8H IV 08/29/25 09:30 08/29/25 09:57 DC Sodium Chloride 1,000 ml @ 150 mls/hr Q6H40M IV 08/29/25 18:30 09/01/25 09:29 DC 08/31/25 16:16 150 MLS/HR Sodium Chloride 1,000 ml @ 200 mls/hr PROTOCOL IV 08/29/25 12:30 08/29/25 16:05 DC Sodium Chloride 1,000 ml @ 999 mls/hr Q1H1M IV 08/29/25 09:30 08/29/25 09:06 DC Thiamine HCl (Vitamin B-1) 200 mg Q12H IVP 08/29/25 09:30 09/02/25 09:30 DC 09/02/25 08:56 200 MG DIAGNOSTICS / RADIOLOGY: [ ] ASSESSMENT: Hypovolemic hypochloremic hyponatremia, POA, Resolved Hemorrhagic shock versus hypovolemic shock - requiring vasopressor support, POA, Resolved Acute upper GI bleeding- Hematemesis, dark output from ileostomy bag, POA, Improving Severe hyperkalemia, POA, Resolved Hypokalemia, Not POA, resolved Hypophosphatemia, Not POA High anion gap metabolic acidosis, POA, Resolved Hyperammonemia, POA, Improving Lactic acidosis, POA, Resolved Hyperphosphatemia, POA, Resolved Acute renal failure - Prerenal Acute Kidney Injury, POA, resolved Starvation Ketoacidosis, POA Rule out occult sepsis, POA Recent extended hospitalization in [facility], 07/20/2025- 08/25/2025 for sepsis, acute abdomen, POA Severe Dehydration, POA, Improving History of esophageal varices, POA Acute Decompensated liver cirrhosis, POA Hx of acute cholecystitis, s/p cholecystostomy tube placement on 08/02/2025. Perisplenic abscess, s/p CT-guided drainage placement on 08/09/2025. 2.7 x 2.2 x 5.1 cm infrasplenic collection History of gastritis, POA Hx of Generalized peritonitis with ESBL E coli infection, POA Moderate Protein calorie malnutrition POA History of bilious peritonitis with small colonic anastomosis perforation s/p diagnostic laparoscopy, abdominal washout, ileostomy creation by Dr. Gann, 07/21/2025 Hx of DM II, POA Recent colovesical fistula repair with sigmoid colon resection and anastomosis on PLAN: Acute upper GI bleeding- Hematemesis, dark output from ileostomy bag - EGD was done which showed less than 5 mm esophageal varices with scar in the lower 3rd of the esophagus. Patient with a bottle hypertensive gastropathy, status post biopsy, duodenum was normal during examination. - Sandostatin and Protonix drip were stopped. - Pantoprazole 40mg IV bid x 24 hours post EGD, now patient is started on pantoprazole 40mg po daily. - patient has been started on GI soft bland diet and she is tolerating it well producing output in her ileostomy bag. -ileostomy output was very high and liquid consistency, started Metamucil 3 times daily. Hemorrhagic shock versus hypovolemic shock, - Patient was weaned off Levophed drip. -Hemodynamically stable. -Currently on midodrine 10 mg. - keep Hgb above 7. - Keep map above 65. High anion gap metabolic acidosis, Hypovolemic hypochloremic hyponatremia, Severe hyperkalemia, Hyperphosphatemia - On presentation, patient's potassium was 6.8, Phosphate 7.0. Sodium 119, c hloride 87, carbon dioxide 13, consistent with high anion gap metabolic acidosis - EKG was done which showed Sinus rhythm. She received calcium gluconate as well as insulin for hyperkalemia. She also underwent emergent HD. Her potassium improved to 3.5 subsequently. Her sodium also improved to 134, chloride 96, CO2 31 (08/30). - Patient was started on sodium bicarbonate because of acidosis and bicarb deficit. Her BMP Bicarb today is 29. Bicarb drip was then discontinued as per nephrology. - Patient was receiving sodium chloride 150 mls/hr which was stopped. - Monitor input and output as well as daily weights. - We will follow up with nephrology recommendations and repeat CMP, CBC and related labs in the morning. Lactic acidosis, starvation acidosis, Suspected occult sepsis. - WBCs are 5.1 (08/31). - We will follow with blood culture and urine culture which are negative so far. - patient is continued on Merrem as per Infectious Disease recommendation Acute renal failure, Prerenal Acute Kidney Injury, Dehydration - On Presentation, patient's creatinine was 5, BUN 80. - FENa <0.2, Stone <20 - Urine microscopy showed Hyaline and granular casts - patient was started on NaCl 150mls/hr which was stopped. - Bicarb drip was discontinued as per nephrology. - patient is successfully weaned off Levophed - Patient received emergent hemodialysis session for elevated renal parameters as well as electrolyte derangements including Hyperkalemia and acidosis. - Her creatinine and BUN have improved to 1.0 and 16 respectively (08/31) - Transfuse as needed to keep Hb above 7 (Hb=9.0, 08/31/25) - Monitor input and output. Patient's total output in the past24 hours is 0, versus 3950 input. - We will repeat a.m. labs and follow up with Nephrology recommendations. Hyperammonemia - On 09/01, ammonia levels were 51. Patient was started on lactulose tid. - Follow up with ammonia levels. Hypokalemia, Hypophosphatemia - Patient's potassium dropped to 2.9 and phosphate 1.8. 08/31/2025 - Patient was started on potassium phosphate IV. - We will follow up with Nephrology recommendation and repeat labs in the morning. ATTESTATION BY PHYSICIAN I have seen and examined the patient. I reviewed the documentation, medical decision making, and treatment plan as noted by the resident above. I agree with the findings and plan of care. Denzel Coello IV, MD, ADIL SHAH QUADRI MD Sep 04, 2025 14:34
[2025-09-05] VITALS (7 sets, daily range): BP systolic 101–126; BP diastolic 61–73; PULSE 65–94; RESP 18–20; TEMP 97.4–98.5; O2SAT 95–96
[2025-09-05 05:07] LABS: NUCLEATED RED BLOOD CELLS 0.0 % (0.0-0.19); PLATELET COUNT (AUTO) 117.0 K/uL (130-400); RED BLOOD CELL COUNT(AUTO) 3.19 MIL/uL (4.00-5.50); RED CELL DISTRIBUTION WIDTH 17.7 % (11.0-15.5); WHITE BLOOD COUNT (AUTO) 4.9 K/uL (4.8-10.8)
[2025-09-05 05:24] LABS: CREATININE 0.5 mg/dL (0.5-1.0); GLOMERULAR FILTR. RATE CALC 109.0 mL/min (>90); GLUCOSE,RANDOM 83.0 mg/dL (70-105); SODIUM SERUM 133.0 mmol/L (136-145); UREA NITROGEN, BLOOD 8.0 mg/dL (7-18)
--- NOTE | 2025-09-05 10:39 | PN ---
[facility] PROGRESS NOTE Date of Service: Sep 05, 2025 Time of Service: 9:10 SUBJECTIVE: As per admission notes "50-year-old female with underlying history of type 2 diabetes mellitus, history of liver cirrhosis, prior history of esophageal varices requiring banding in May,, history of robotic sigmoid resection with takedown of colovesical fistula who was recently hospitalized in [facility] from 07/20/2025 - 08/25/2025 patient was found to have bilious peritonitis with 2 mm perforation of colonic anastomosis requiring diagnostic laparoscopy, abdominal washout and drain placement with creation of diverting loop ileostomy. Patient was hospitalized for about one month and subsequently required IR guided drain placement as well. She was just discharged from the hospital on 08/25/2025. Patient's daughter reports that patient was having nausea and vomiting with poor oral intake at home. She started to have coffee-ground emesis today and she also noticed some right streaks of blood with a coffee-ground emesis. Stool has also been dark in the ileostomy bag. Patient is having moderate intensity abdominal pain as well. She has not been taking any NSAIDs. Daughter reports that patient has been very weak since her discharge in very debilitated. Patient denies active chest pain. Denies active shortness of breath. On presentation to the hospital, patient was noted to be afebrile with T-max of 97.5 F, heart rate of 100, blood pressure of 127/91. [place] [address], hemoglobin of 16.4, platelet count of 470458. BMP was repeated twice, BMP showed sodium of 117, potassium 7.0, chloride of 88, CO2 of seven, BUN of 83, creatinine 5.0, blood glucose of 99, calcium 10.4. Blood gas showed pH of 7.28, bicarb of close to eight, CO2 of 18, lactic acid of three. Patient will be admitted to ICU. Patient is presenting with severe renal failure with hyperkalemia and severe metabolic acidosis. Patient also with concerns for upper GI bleeding with coffee-ground emesis. Patient remains critically ill consultation with Intensive Care, Nephrology, GI will be requested. We we will obtain a CT abdomen pelvis without contrast for further evaluation as well. Patient is critically ill. Plan of care was discussed with patient and daughter at bedside" 08/30/2025 Patient was seen and examined at bedside. Her blood pressure has been low, 88/54, heart rate 86. She is currently on Levophed 0.2 Mcg, octreotide, Protonix, sodium bicarbonate drip. She received 2nd hemodialysis session yesterday. As per Nephrology, she will continue to receive dialysis inpatient. Her high anion gap metabolic acidosis is improving with sodium 134, carbon dioxide 31, chloride 96. Her creatinine has trended down from 5-1.8. General surgery consult is on board and we will follow up with their recommendations. Additionally, in the light of history of liver cirrhosis with esophageal varices, her recent hematemesis will be evaluated with GI consult and possible endoscopy. We discussed this with the patient and her family members present besides. Patient is started on Merrem and blood culture, urine cultures show no growth so far. Her lactic acid has trended down from 3.1 to 2.1. 08/31/2025 Patient was seen and examined at bedside in room 214. She continues to be on Levophed 0.1 which is being weaned off. She is also on Sandostatin and Protonix drip. Patient complained of mild pain along the sides of her drain but denied any nausea or episode of vomiting since Saturday. Minimal drainage was noted. Sodium bicarb was discontinued as per Nephrology. Her lab markers have improved with sodium 141, chloride 104, bicarb 32, creatinine 1, BUN 16, ammonia 34. Her urine sodium was less than 20 consistent with prerenal CYNTHIA. We are pending blood and urine culture results. Her total output in the past24 hours has been optimal, 2069. She is on sodium chloride 150 mL/hour. We are following gastroenterology recommendations of possible upper endoscopy in the morning if p atient condition remains stable. 09/01/2025 Patient was seen and examined at bedside. She is off vasopressor support and is hemodynamically stable. Her chest x-ray showed opacity in the left lower lobe and we will follow up with CT scan of chest. She is started on 2nd day of ppm today. She successfully underwent EGD which showed small, less than 5 mm, esophageal varices with scar in the lower 3rd of the esophagus. Patient was noted to have portal hypertensive gastropathy which was biopsied. Duodenum was normal during examination. Patient is receiving Merrem and her blood culture and urine cultures have shown no growth so far. Due to her elevated ammonia levels, she will be started on lactulose. We will proceed with caution with respect to normal saline as patient's BNP is elevated. 09/02/2025 The patient has been seen and examined earlier this morning during my rounding, case discussed with the RN, no acute events overnight, blood pressure 118/71, he art rate of 56, afebrile, saturating normal on room air, CBC showing hemoglobin 8.5, hematocrit 36.8, WBC of 4.4, platelet count of 99, sodium 137, potassium 3.8, BUN of 18, creatinine 0.7, magnesium Lasix. Results of blood culture no growth after four days. Urine culture no growth. EGD reviewed, small less than 5 mm esophageal varices with scar in the lower 3rd of the esophagus. Patient with a bottle hypertensive gastropathy, status post biopsy, duodenum was normal during examination. Patient to be downgraded to the medical floor, continue banana bag, continue Protonix 40 mg IV b.i.d.. Plan for possible PEG tube placement. 09/03/2025 Patient was seen and examined at bedside. She has been advanced to GI soft bland diet which she is tolerating really well and having output in her ileostomy bag. As per surgeon, if she continues to tolerate diet, she may not require G-tube placement on discharge. Patient did not complain of any significant pain and seemed to be doing really well. Her cholecystostomy tube was removed but her splenic percutaneous tube is still in position and may require further IR intervention for repositioning due to persistent and mildly increased perisplenic fluid collection. She is receiving lactulose and her ammonia levels have gone down. Her acute renal failure continues to resolve and her vitals are also stable. No growth on urine and blood culture so far. We have shifted her from Protonix IV to p.o. as per GI recommendations. 09/04/2025 Patient was seen and examined at bedside in room 302. She has been tolerating GI soft bland diet, ileostomy output seems very high, liquid consistency and patient will be receiving fiber 3 times a day. Patient may require further IR intervention on Saturday for splenic drain reposition due to persistent and mildly increased perisplenic fluid collection. Vitals are stable, blood and urine culture shows no growth so far. 09/05/2025 Patient was seen and examined at bedside. She is tolerating GI soft bland diet, and her ileostomy output is high although liquid in consistency. We have decreased lactulose to b.i.d. from t.i.d. She continues on fiber 3 times a day as per surgery recommendations to bulk up the stool from the ileostomy in order to decrease the chances of further dehydration from high ileostomy output. Additionally, nodular swelling was appreciated in her right upper extremity which could be concerning for superficial venous thrombosis for which ultrasound Doppler of right upper extremity has been ordered. Patient is currently undergoing bladder training while being catheterized and we will proceed with Dueñas catheter removal as tolerated. REVIEW OF SYSTEMS CONSTITUTIONAL: malaise, poor oral intake -resolving NEUROLOGICAL: Denies headache, amaurosis fugax, motor weakness, sensory deficit, vertigo/spinning sensation, gait abnormalities, or tremors. ENT: No hearing loss, otalgia, otorrhea, rhinitis, rhinorrhea, hoarseness, or sore throat. CARDIOVASCULAR: Denies any exertional angina, dyspnea on exertion, orthopnea, paroxysmal nocturnal dyspnea, palpitations, life-threatening arrhythmias, claudi cation. PULMONARY: Denies any shortness of breath, cough, phlegm/sputum, hemoptysis, pleuritic chest pain. SLEEP: Denies morning headaches, daytime somnolence or napping. Denies difficulty falling asleep, staying asleep, waking from sleep. Denies knowledge of snoring. GASTROINTESTINAL: nausea, vomiting, abdominal pain, melena, coffee ground emesis - resolved GENITOURINARY: Urine output was very low - resolving PHYSICAL EXAM GENERAL APPEARANCE: The patient is awake, alert, and oriented, answering to all questions with very mild pain around her drains. NEUROLOGICAL: Cranial nerves II-XII grossly intact. Neurological examination is non focal with spontaneous movement of upper and lower extremities HEENT: Face is symmetric. Pupils are equal and reactive. Extraocular movements are intact. NECK: Supple. No JVD. No thyromegaly. No submental, submandibular, pre- /postauricular, occipital or supraclavicular lymphadenopathy. CHEST: Normal chest expansion. No Telemetry. LUNGS: Absence of any rales, rhonchi or any wheezing. CARDIOVASCULAR: Regular. S1 and S2 normal. No appreciable rubs, murmurs or gallops. ABDOMEN: no rebound noted, there is perisplenic abdominal drain noted with ileostomy bag. : Deferred. Currently catheterized. EXTREMITIES: Swelling in right upper extremity. Mild ecchymosis. Vital Signs (last 8hr) Date Time Temp Pulse Resp B/P (MAP) Pulse Ox O2 Delivery O2 Flow Rate FiO2 09/05/25 07:39 97.3 66 20 111/65 93 Room Air 09/05/25 04:00 98.4 65 18 112/62 96 Room Air LABS: Laboratory: Test 09/05/25 05:36 09/05/25 04:42 09/04/25 04:44 Range/Units Whole Blood Glucose 82 70-110 MG/DL White Blood Count 4.9 4.8-10.8 K/uL Red Blood Count 3.19 L 4.00-5.50 MIL/uL Hemoglobin 9.7 L 12.0-16.0 g/dL Hematocrit 30.2 L 36-48 % Mean Corpuscular Volume 94.7 79-99 fL Mean Corpuscular Hemoglobin 30.4 27.0-33.0 pg Mean Corpuscular Hemoglobin Concent 32.1 32.0-36.0 g/dL Red Cell Distribution Width 17.7 H 11.0-15.5 % Platelet Count 117 #L 130-400 K/uL Mean Platelet Volume 10.9 H 7.5-10.5 fL Nucleated Red Blood Cells 0.0 0.0-0.19 % Sodium Level 133 L 136-145 mmol/L Potassium Level 4.3 3.5-5.1 mmol/L Chloride Level 106 101-111 mmol/L Carbon Dioxide Level 19 L 21-32 mmol/L Blood Urea Nitrogen 8 7-18 mg/dL Creatinine 0.5 0.5-1.0 mg/dL Glomerular Filtration Rate Calc 109 >90 mL/min Random Glucose 83 70-105 mg/dL Total Calcium 8.2 L 8.5-10.1 mg/dL Magnesium Level 1.90 1.80-2.40 mg/dL Current Medications Medications (Trade) Dose Ordered Sig/Gregory Route PRN Reason Start Time Stop Time Status Last Admin Dose Admin Acetaminophen (TYLenol 325MG TAB) 650 mg Q6H PRN PO MILD PAIN (1-3) 08/29/25 10:00 09/28/25 09:59 Albuterol (DUOneb) 1 udvial Q6H PRN IH SHORTNESS OF BREATH 08/29/25 10:00 09/28/25 09:59 Calcium Gluconate (Calcium Gluc 1gm Vial) 1 gm ONCE IV 08/29/25 09:30 08/29/25 09:23 DC Dextrose (D50w) 50 ml AD PRN IV HYPOGLYCEMIA PROTOCOL 08/29/25 10:00 09/28/25 09:59 Dextrose/Sodium Chloride 1,000 ml @ 0 mls/hr AD IV 08/29/25 12:30 08/29/25 16:05 DC Duloxetine HCl (CymbALTA 30 mg CAP) 30 mg BID PO 09/03/25 21:00 10/03/25 20:59 09/05/25 08:06 30 MG Glucagon (Glucagon 1mg Kit) 1 mg AD PRN IM HYPOGLYCEMIA PROTOCOL 08/29/25 10:00 09/28/25 09:59 Insulin Human Regular (humuLIN R 100 UNIT/ML 3ML) 5 unit ONCE IV 08/29/25 09:30 08/29/25 09:25 DC Insulin Human Regular (humuLIN R 100 UNIT/ML 3ML) INSULIN SLIDING SCAL... ACHS SQ 08/29/25 11:30 09/28/25 11:29 09/03/25 16:15 2 UNIT Insulin Human Regular 100 unit/ Sodium Chloride 101 ml @ 0 mls/hr PROTOCOL IV 08/29/25 12:30 08/29/25 16:05 DC Lactulose (Constulose 20gm/ 30ml Udcup) 20 gm TID PO 09/01/25 14:00 10/01/25 13:59 09/05/25 08:06 20 GM Magnesium Sulfate 50 ml @ 0 mls/hr PROTOCOL IV 08/29/25 12:30 08/29/25 16:05 DC Magnesium Sulfate 50 ml @ 0 mls/hr PROTOCOL IV 08/30/25 10:00 09/29/25 09:59 09/03/25 23:39 25 MLS/HR Magnesium Sulfate 50 ml @ 0 mls/hr PROTOCOL IV 09/02/25 13:30 09/02/25 13:04 DC Magnesium Sulfate 50 ml @ 0 mls/hr PROTOCOL IV 09/03/25 08:00 09/03/25 07:43 DC Meropenem (Merrem 500mg) 500 mg Q24H IVPB 08/29/25 10:00 08/31/25 09:59 DC 08/30/25 09:46 500 MG Meropenem (Merrem 500mg) 500 mg Q24H IVPB 08/31/25 23:30 09/10/25 23:29 09/04/25 23:13 500 MG Midodrine (PROAMatine 5 MG TABLET) 10 mg BID PO 09/01/25 09:00 08/31/25 18:36 DC Midodrine (PROAMatine 5 MG TABLET) 10 mg TID PO 09/01/25 09:00 10/01/25 08:59 09/05/25 08:06 10 MG Morphine Sulfate (morPHINE 2MG SYG) 2 mg Q4H PRN IVP SEVERE PAIN (7-10) 09/01/25 05:30 09/08/25 05:29 09/05/25 04:28 2 MG Norepinephrine Bitartrate 32 mg/ Sodium Chloride 250 ml @ 0 mls/hr Q0M STAT IV 08/29/25 21:01 08/29/25 21:07 DC 08/29/25 21:13 0 MLS/HR Octreotide Acetate 1250 mcg/ Sodium Chloride 250 ml @ 0 mls/hr PROTOCOL IV 08/29/25 08:30 09/01/25 10:32 DC 08/31/25 10:18 5 MLS/HR Ondansetron HCl (zoFRAN 4MG INJ) 4 mg Q6H PRN IVP NAUSEA/VOMITING 08/29/25 09:30 09/28/25 09:29 09/03/25 04:33 4 MG Pantoprazole Sodium (PROTonix 40MG INJ) 40 mg BID IVP 09/01/25 21:00 09/03/25 14:32 DC 09/03/25 09:16 40 MG Pantoprazole Sodium (PROTonix 40MG TAB) 40 mg DAILY PO 09/04/25 09:00 10/04/25 08:59 09/05/25 08:06 40 MG Pantoprazole Sodium 80 mg/ Sodium Chloride 100 ml @ 10 mls/hr Q10H IV 08/29/25 08:30 09/01/25 10:32 DC 09/01/25 05:50 10 MLS/HR Pharmacy Profile Note (Pharmacy Communication) 1 each ONCE MISC 08/29/25 09:30 08/29/25 09:35 DC Pharmacy Profile Note (Pharmacy Communication) 1 each ONCE MISC 08/31/25 23:30 08/31/25 23:17 DC Potassium Chloride 100 ml @ 50 mls/hr AD PRN IV POTASSIUM PROTOCOL 08/29/25 12:30 09/28/25 12:29 09/02/25 06:26 50 MLS/HR Psyllium Hydrophilic Mucilloid (Metamucil) 1 tbs TID PO 09/04/25 14:00 10/04/25 13:59 09/05/25 08:06 1 TBS Sodium Bicarbonate 150 meq/Dextrose 1,150 ml @ 125 mls/hr Q9H12M IVP 08/29/25 10:00 08/30/25 10:12 DC 08/30/25 08:07 125 MLS/HR Sodium Chloride 250 ml @ 0 mls/hr AD IV 08/29/25 17:30 09/28/25 17:29 Sodium Chloride 1,000 ml @ 0 mls/hr Q0M IV 08/29/25 16:00 08/29/25 16:03 DC Sodium Chloride 1,000 ml @ 0 mls/hr Q0M IV 08/29/25 16:00 09/01/25 08:01 DC 08/29/25 16:10 500 MLS/HR Sodium Chloride 1,000 ml @ 125 mls/hr Q8H IV 08/29/25 09:30 08/29/25 09:57 DC Sodium Chloride 1,000 ml @ 150 mls/hr Q6H40M IV 08/29/25 18:30 09/01/25 09:29 DC 08/31/25 16:16 150 MLS/HR Sodium Chloride 1,000 ml @ 200 mls/hr PROTOCOL IV 08/29/25 12:30 08/29/25 16:05 DC Sodium Chloride 1,000 ml @ 999 mls/hr Q1H1M IV 08/29/25 09:30 08/29/25 09:06 DC Thiamine HCl (Vitamin B-1) 200 mg Q12H IVP 08/29/25 09:30 09/02/25 09:30 DC 09/02/25 08:56 200 MG DIAGNOSTICS / RADIOLOGY: PATIENT: DALLAS BUCHANAN MR#: [id number] : 1970 SEX: F AGE: 55 LOCATION: 3AH ORDER 2300 STATUS: ADM IN REPORT#: [id number] SERVICE 0600 REASON: hypoxic ORDERING PHYSICIAN: LOBO RICKS PROCEDURE: CXR1VW - CHEST 1VW EXAM: CR Chest, 1 View (Portable, Supine). CLINICAL HISTORY: Chest pain. COMPARISON: CR Chest, 2 View ??? 09/01/2025 01:13 AM EDT. FINDINGS: LUNGS: Area of haziness in left lower zone-Remained stable. Rest of the lungs are clear. No focal consolidation, pulmonary edema, or acute infiltrate. PLEURAL SPACES: No pleural effusion or pneumothorax. MEDIASTINUM: Cardiac size and mediastinal contours within normal limits. No acute osseous abnormality. LINES/DEVICES: Monitoring leads noted. No new devices identified. IMPRESSION: Area of haziness in left lower zone likely airspace opacity-Stable compared to previous radiograph. /[place] DICTATED BY: TOBI LEAHY MD DATE: 09/03/251137 ELECTRONICALLY SIGNED BY: TOIB LEAHY MD DATE: 09/03/251137 ASSESSMENT: Acute upper GI bleeding- Hematemesis, dark output from ileostomy bag, POA, Improving High output from ileostomy bag, not POA Hemorrhagic shock versus hypovolemic shock, POA, Resolved Normocytic normochromic anemia, POA Hypovolemic hypochloremic hyponatremia, POA, Resolved Severe hyperkalemia, POA, Resolved Hypokalemia, Not POA, resolved Hypophosphatemia, Not POA High anion gap metabolic acidosis, POA, Resolved Hyperammonemia, POA, Improving Lactic acidosis, POA, Resolved Hyperphosphatemia, POA, Resolved Acute renal failure - Prerenal Acute Kidney Injury, POA, resolved Starvation Ketoacidosis, POA Rule out occult sepsis, POA Recent extended hospitalization in [facility], 07/20/2025- 08/25/2025 for sepsis, acute abdomen, POA Severe Dehydration, POA, Improving History of esophageal varices, POA Acute Decompensated liver cirrhosis, POA Hx of acute cholecystitis, s/p cholecystostomy tube placement on 08/02/2025. Perisplenic abscess, s/p CT-guided drainage placement on 08/09/2025. 2.7 x 2.2 x 5.1 cm infrasplenic collection History of gastritis, POA Hx of Generalized peritonitis with ESBL E coli infection, POA Moderate Protein calorie malnutrition POA History of bilious peritonitis with small colonic anastomosis perforation s/p diagnostic laparoscopy, abdominal washout, ileostomy creation by Dr. Gann, 07/21/2025 Hx of DM II, POA Recent colovesical fistula repair with sigmoid colon resection and anastomosis on PLAN: High output from ileostomy * Continue fiber 3 times a day. * Monitor for any signs of dehydration including vitals and BMP. * Lactulose decreased to b.i.d. from t.i.d.. * Monitor input and output including ileostomy bag. Acute upper GI bleeding- Hematemesis, dark output from ileostomy bag * EGD was done which showed less than 5 mm esophageal varices with scar in the lower 3rd of the esophagus, hypertensive gastropathy, status post biopsy, duodenum was normal during examination. * Patient received Sandostatin and Protonix drip on presentation which were subsequently stopped . * Patient was given Pantoprazole 40mg IV bid post EGD for 1 day. She is now continued on pantoprazole 40mg po daily. * Patient continues on GI soft bland diet and she is tolerating it well producing output in her ileostomy bag. * Ileostomy output was very high and liquid consistency, started fiber3 times daily. Hemorrhagic shock versus hypovolemic shock, * Patient was weaned off Levophed drip. * Hemodynamically stable. * Currently on midodrine 10 mg. * keep Hgb above 7. * Keep map above 65. Normocytic normochromic anemia * Patient's hemoglobin 9.7, MCV 94.7. * Anemia of chronic disease versus iron deficiency versus blood loss. * Follow up with iron levels. * Keep hemoglobin above 7 High anion gap metabolic acidosis, Hypovolemic hypochloremic hyponatremia, Severe hyperkalemia, Hyperphosphatemia * On presentation, patient's potassium was 6.8, Phosphate 7.0. Sodium 119, chloride 87, carbon dioxide 13, consistent with high anion gap metabolic acidosis * EKG was done which showed Sinus rhythm. She received calcium gluconate as well as insulin for hyperkalemia. She also underwent emergent HD. Her potassium improved to 3.5 subsequently. Her sodium also improved to 134, chloride 96, CO2 31 (08/30). * Patient was started on sodium bicarbonate because of acidosis and bicarb deficit. Her BMP Bicarb increased to 29. Bicarb drip was then discontinued as per nephrology. * Patient was receiving sodium chloride 150 mls/hr which was stopped. * Monitor input and output as well as daily weights. * We will follow up with nephrology recommendations and repeat CMP, CBC and related labs in the morning. Lactic acidosis, starvation acidosis, Suspected occult sepsis. * WBCs 5.1 (08/31). * blood culture and urine culture are negative. * patient is continued on Merrem as per Infectious Disease recommendation Acute renal failure, Prerenal Acute Kidney Injury, Dehydration * On Presentation, patient's creatinine was 5, BUN 80. * FENa <0.2, Stone <20 - Urine microscopy showed Hyaline and granular casts * patient was started on NaCl 150mls/hr which was stopped. * Bicarb drip was discontinued as per nephrology. * patient is successfully weaned off Levophed * Patient received emergent hemodialysis session for elevated renal parameters as well as electrolyte derangements including Hyperkalemia and acidosis. * Her creatinine and BUN have improved to 1.0 and 16 respectively (08/31) * Transfuse as needed to keep Hb above 7 (Hb=9.0, 08/31/25) * Monitor input and output. Patient's total output in the past24 hours is 2070, versus 3950 input. * We will repeat a.m. labs and follow up with Nephrology recommendations. Hyperammonemia * On 09/01, ammonia levels were 51. Patient was started on lactulose tid. * Follow up with ammonia levels. Hypokalemia, Hypophosphatemia * Patient's potassium dropped to 2.9 and phosphate 1.8. 08/31/2025 * Patient was started on potassium phosphate IV. * We will follow up with Nephrology recommendation and repeat labs in the morning. ATTESTATION BY PHYSICIAN I have seen and examined the patient. I reviewed the documentation, medical d ecision making, and treatment plan as noted by the resident physician above. I agree with the findings and plan of care. TEODORA MARRERO IV, MD, MUHAMMAD H MD Sep 05, 2025 10:39
[2025-09-05] MEDS ORDERED: CYCLOBENZAPRINE HCL 10 MG TABLET PO PRN (11:00)
--- NOTE | 2025-09-05 11:25 | PN ---
PATIENT RECOVERED FROM ACUTE KIDNEY INJURY. DOING GOOD WITH HER DIET NO NAUSEA NO VOMITING. PAIN IS CONTROLLED. LEFT UPPER QUADRANT DRAIN STILL IN PLACE. ILEOSTOMY CONTENTS ARE STILL VERY LIQUIDY STARTING TO BULK UP. SHE HAS ONLY HAD TWO DOSES OF THE FIBER YESTERDAY AND ONE TODAY. PATIENT IN NO DISTRESS. ASSESSMENT AND PLAN CONTINUE WITH DIET TOLERATED. CONTINUE WITH FIBER 3 TIMES A DAY. TO BULK UP THE STOOL FROM THE ILEOSTOMY TO DECREASE THE CHANCES OF FURTHER DEHYDRATION FROM ILEOSTOMY OUTPUT. WE WILL ASK MEDICAL TEAM TO SEE IF WE CAN BRING DOWN THE LACTULOSE TO TWICE A DAY INSTEAD OF 3 TIMES A DAY. Vitals/Labs Vital Signs Date Time Temp Pulse Resp B/P (MAP) Pulse Ox O2 Delivery O2 Flow Rate FiO2 09/05/25 07:39 97.3 66 20 111/65 93 Room Air 09/04/25 20:00 0 21 Laboratory Tests 09/05/25 04:42 Medications Current Medications Octreotide Acetate 50 mcg ONCE ONCE IV Last administered on 08/29/25at 09:02; Start 08/29/25 at 08:30; Stop 08/29/25 at 08:31; Status DC Octreotide Acetate 1250 mcg/ Sodium Chloride 250 ml @ 0 mls/hr PROTOCOL IV Last administered on 08/31/25at 10:18; Start 08/29/25 at 08:30; Stop 09/01/25 at 10:32; Status DC Pantoprazole Sodium 80 mg ONCE ONCE IVP Last administered on 08/29/25at 09:02; Start 08/29/25 at 08:30; Stop 08/29/25 at 08:31; Status DC Pantoprazole Sodium 80 mg/ Sodium Chloride 100 ml @ 10 mls/hr Q10H IV Last administered on 09/01/25at 05:50; Start 08/29/25 at 08:30; Stop 09/01/25 at 10:32; Status DC Promethazine HCl 25 mg ONCE ONCE IM Last administered on 08/29/25at 09:07; Start 08/29/25 at 08:30; Stop 08/29/25 at 08:33; Status DC Sodium Chloride 1,000 ml @ 999 mls/hr Q1H1M IV; Start 08/29/25 at 09:30; Stop 08/29/25 at 09:06; Status DC Calcium Gluconate 1 gm/Sodium Chloride 110 ml @ 110 mls/hr ONCE ONCE IV Last administered on 08/29/25at 09:41; Start 08/29/25 at 09:30; Stop 08/29/25 at 10:29; Status DC Dextrose 50 ml ONCE ONCE IV; Start 08/29/25 at 09:30; Stop 08/29/25 at 09:27; Status DC Insulin Human Regular 5 unit ONCE ONCE IV Last administered on 08/29/25at 09:57; Start 08/29/25 at 09:30; Stop 08/29/25 at 09:31; Status DC Albuterol Sulfate 10 mg ONCE ONCE IH Last administered on 08/29/25at 09:37; Start 08/29/25 at 09:30; Stop 08/29/25 at 09:31; Status DC Lactulose 200 gm ONCE ONCE RI; Start 08/29/25 at 09:30; Stop 08/29/25 at 09:36; Status DC Calcium Gluconate 1 gm ONCE IV; Start 08/29/25 at 09:30; Stop 08/29/25 at 09:23; Status DC Sodium Chloride 1,000 ml @ 125 mls/hr Q8H IV; Start 08/29/25 at 09:30; Stop 08/29/25 at 09:57; Status DC Insulin Human Regular 5 unit ONCE IV; Start 08/29/25 at 09:30; Stop 08/29/25 at 09:25; Status DC Dextrose 50 ml ONCE ONCE IV Last administered on 08/29/25at 09:47; Start 08/29/25 at 09:30; Stop 08/29/25 at 09:31; Status DC Sodium Bicarbonate 50 meq ONCE ONCE IV Last administered on 08/29/25at 09:47; Start 08/29/25 at 09:30; Stop 08/29/25 at 09:31; Status DC Pharmacy Profile Note 1 each ONCE MISC; Start 08/29/25 at 09:30; Stop 08/29/25 at 09:35; Status DC Ondansetron HCl 4 mg Q6H PRN IVP Last administered on 09/03/25at 04:33; Start 08/29/25 at 09:30; Stop 09/28/25 at 09:29 Thiamine HCl 200 mg Q12H IVP Last administered on 09/02/25at 08:56; Start 08/29/25 at 09:30; Stop 09/02/25 at 09:30; Status DC Meropenem 500 mg Q24H IVPB Last administered on 08/30/25at 09:46; Start 08/29/25 at 10:00; Stop 08/31/25 at 09:59; Status DC Sodium Chloride 1,000 ml @ 0 mls/hr ONCE ONCE IV Last administered on 08/29/25at 09:47; Start 08/29/25 at 10:00; Stop 08/29/25 at 10:01; Status DC Dextrose 50 ml AD PRN IV; Start 08/29/25 at 10:00; Stop 09/28/25 at 09:59 Glucagon 1 mg AD PRN IM; Start 08/29/25 at 10:00; Stop 09/28/25 at 09:59 Acetaminophen 650 mg Q6H PRN PO; Start 08/29/25 at 10:00; Stop 09/28/25 at 09:59 Albuterol 1 udvial Q6H PRN IH; Start 08/29/25 at 10:00; Stop 09/28/25 at 09:59 Sodium Bicarbonate 50 meq ONCE ONCE IV Last administered on 08/29/25at 10:12; Start 08/29/25 at 10:00; Stop 08/29/25 at 10:05; Status DC Sodium Bicarbonate 150 meq/Dextrose 1,150 ml @ 125 mls/hr Q9H12M IVP Last administered on 08/30/25at 08:07; Start 08/29/25 at 10:00; Stop 08/30/25 at 10:12; Status DC Insulin Human Regular INSULIN SLIDING SCAL... ACHS SQ Last administered on 09/03/25at 16:15; Start 08/29/25 at 11:30; Stop 09/28/25 at 11:29 Sodium Chloride 1,000 ml @ 0 mls/hr ONCE ONCE IV Last administered on 08/29/25at 13:44; Start 08/29/25 at 11:00; Stop 08/29/25 at 11:06; Status DC Sodium Chloride 1,000 ml @ 200 mls/hr PROTOCOL IV; Start 08/29/25 at 12:30; Stop 08/29/25 at 16:05; Status DC Magnesium Sulfate 50 ml @ 0 mls/hr PROTOCOL IV; Start 08/29/25 at 12:30; Stop 08/29/25 at 16:05; Status DC Insulin Human Regular 100 unit/ Sodium Chloride 101 ml @ 0 mls/hr PROTOCOL IV; Start 08/29/25 at 12:30; Stop 08/29/25 at 16:05; Status DC Dextrose/Sodium Chloride 1,000 ml @ 0 mls/hr AD IV; Start 08/29/25 at 12:30; Stop 08/29/25 at 16:05; Status DC Potassium Chloride 100 ml @ 50 mls/hr AD PRN IV Last administered on 09/02/25at 06:26; Start 08/29/25 at 12:30; Stop 09/28/25 at 12:29 Lidocaine HCl 20 ml STK-MED ONCE .ROUTE; Start 08/29/25 at 14:24; Stop 08/29/25 at 14:25; Status DC Lidocaine HCl 20 ml STK-MED ONCE .ROUTE Last administered on 08/29/25at 15:59; Start 08/29/25 at 14:25; Stop 08/29/25 at 14:25; Status DC Sodium Chloride 1,000 ml @ 0 mls/hr Q0M IV; Start 08/29/25 at 16:00; Stop 08/29/25 at 16:03; Status DC Sodium Chloride 1,000 ml @ 0 mls/hr Q0M IV Last administered on 08/29/25at 16:10; Start 08/29/25 at 16:00; Stop 09/01/25 at 08:01; Status DC Sodium Chloride 250 ml @ 0 mls/hr AD IV; Start 08/29/25 at 17:30; Stop 09/28/25 at 17:29 Sodium Chloride 1,000 ml @ 0 mls/hr ONCE ONCE IV Last administered on 08/29/25at 19:57; Start 08/29/25 at 17:30; Stop 08/29/25 at 17:35; Status DC Sodium Chloride 1,000 ml @ 150 mls/hr Q6H40M IV Last administered on 08/31/25at 16:16; Start 08/29/25 at 18:30; Stop 09/01/25 at 09:29; Status DC Dexmedetomidine/ Sodium Chloride 400 mcg STK-MED ONCE IV; Start 08/29/25 at 19:56; Stop 08/29/25 at 19:56; Status DC Norepinephrine Bitartrate 32 mg/ Sodium Chloride 250 ml @ 0 mls/hr Q0M STAT IV Last administered on 08/29/25at 21:13; Start 08/29/25 at 21:01; Stop 08/29/25 at 21:07; Status DC Magnesium Sulfate 50 ml @ 0 mls/hr PROTOCOL IV Last administered on 09/03/25at 23:39; Start 08/30/25 at 10:00; Stop 09/29/25 at 09:59 Morphine Sulfate 2 mg ONCE ONCE IVP Last administered on 08/31/25at 02:24; Start 08/31/25 at 02:30; Stop 08/31/25 at 02:31; Status DC Potassium Phosphate 250 ml @ 42 mls/hr PROTOCOL ONCE IV Last administered on 08/31/25at 10:11; Start 08/31/25 at 09:00; Stop 08/31/25 at 14:57; Status DC Multivitamins/ Minerals 10 ml/ Chromium/Copper/ Manganese/Zinc 3 ml/Amino Acids/ Electrolytes/ Dextrose 2,000 ml @ 83 mls/hr ONCE ONCE IV Last administered on 08/31/25at 20:53; Start 08/31/25 at 20:00; Stop 09/01/25 at 11:25; Status DC Midodrine 10 mg BID PO; Start 09/01/25 at 09:00; Stop 08/31/25 at 18:36; Status DC Midodrine 10 mg ONCE ONCE PO Last administered on 08/31/25at 18:36; Start 08/31/25 at 18:30; Stop 08/31/25 at 18:31; Status DC Midodrine 10 mg TID PO Last administered on 09/05/25at 08:06; Start 09/01/25 at 09:00; Stop 10/01/25 at 08:59 Pharmacy Profile Note 1 each ONCE MISC; Start 08/31/25 at 23:30; Stop 08/31/25 at 23:17; Status DC Meropenem 500 mg Q24H IVPB Last administered on 09/04/25at 23:13; Start 08/31/25 at 23:30; Stop 09/10/25 at 23:29 Morphine Sulfate 2 mg Q4H PRN IVP Last administered on 09/05/25at 04:28; Start 09/01/25 at 05:30; Stop 09/08/25 at 05:29 Propofol 200 mg STK-MED ONCE IV; Start 09/01/25 at 09:53; Stop 09/01/25 at 09:53; Status DC Ketamine HCl 50 mg STK-MED ONCE .ROUTE; Start 09/01/25 at 09:53; Stop 09/01/25 at 09:53; Status DC Pantoprazole Sodium 40 mg BID IVP Last administered on 09/03/25at 09:16; Start 09/01/25 at 21:00; Stop 09/03/25 at 14:32; Status DC Lactulose 20 gm TID PO Last administered on 09/05/25at 08:06; Start 09/01/25 at 14:00; Stop 09/05/25 at 10:44; Status DC Multivitamins/ Minerals 10 ml/ Amino Acids/ Electrolytes/ Dextrose 2,000 ml @ 83 mls/hr ONCE ONCE IV Last administered on 09/01/25at 22:13; Start 09/01/25 at 20:00; Stop 09/02/25 at 20:05; Status DC Magnesium Sulfate 50 ml @ 0 mls/hr PROTOCOL IV; Start 09/02/25 at 13:30; Stop 09/02/25 at 13:04; Status DC Magnesium Sulfate 50 ml @ 0 mls/hr PROTOCOL IV; Start 09/03/25 at 08:00; Stop 09/03/25 at 07:43; Status DC Pantoprazole Sodium 40 mg DAILY PO Last administered on 09/05/25at 08:06; Start 09/04/25 at 09:00; Stop 10/04/25 at 08:59 Duloxetine HCl 30 mg BID PO Last administered on 09/05/25at 08:06; Start 09/03/25 at 21:00; Stop 10/03/25 at 20:59 Psyllium Hydrophilic Mucilloid 1 tbs TID PO Last administered on 09/05/25at 08:06; Start 09/04/25 at 14:00; Stop 10/04/25 at 13:59 Cyclobenzaprine HCl 5 mg TID PRN PO; Start 09/05/25 at 11:00; Stop 10/05/25 at 10:59 Home Med (Medroxyprogesterone Acetate (Provera) 1 TAB) DAILY PO; Start 09/06/25 at 09:00; Stop 10/06/25 at 08:59 Atorvastatin Calcium 5 mg HS PO; Start 09/05/25 at 21:00; Stop 10/05/25 at 20:59 Lactulose 20 gm BID PO; Start 09/05/25 at 21:00; Stop 10/01/25 at 13:59 SUSAN JHAVERI MD Sep 05, 2025 11:25
[2025-09-05 11:30] LABS: % IRON SATURATION 20.0 % (22-44); IRON, SERUM 31.0 mcg/dL (50-170)
--- NOTE | 2025-09-05 13:11 | NUR ---
midodrine not given at this time BP 126/73
[2025-09-05] MEDS: LACTULOSE 20 GM/30 ML UDCUP PO SCH (21:30)
--- NOTE | 2025-09-05 22:15 | PN ---
FOLLOWUP PROGRESS NOTE SUBJECTIVE: A 55-year-old female initially presented with acute renal failure. The patient was found to have significant hyperkalemia requiring 1 session of dialysis. The patient's renal function has greatly improved while in the hospital. Shaggy catheter has been removed. The patient was started on a diet and the patient is being seen for all of the above. REVIEW OF SYSTEMS: CONSTITUTIONAL: She is feeling improved since admission. HEENT: No change in vision. No change in hearing. CARDIOVASCULAR: No current chest pain or palpitations. PULMONARY: There is no shortness of breath. GASTROINTESTINAL: The patient is tolerating a diet. MUSCULOSKELETAL: Complaints of weakness. PHYSICAL EXAMINATION: VITAL SIGNS: Blood pressure 111/65, pulse in the 60s. GENERAL: Chronically ill female, much older than appearing. HEENT: Head is atraumatic. Pupils are equal, round and reactive to light. Oropharynx is without exudate. Nares are clear. NECK: There is no JVP. There is no thyromegaly. CARDIOVASCULAR: Regular. There is no S3 or S4 gallop. LUNGS: Coarse with equal thoracic movement. ABDOMEN: Soft, nondistended, and nontender. EXTREMITIES: Reveal no clubbing, no cyanosis. NEUROLOGICAL: She is awake. She is alert. LABORATORY DATA: Sodium 133, potassium 4.3, BUN 8, creatinine 0.5, hemoglobin 9.7, hematocrit 30. IMPRESSION: * Acute renal failure. * Volume depletion. * Hypotension. * Anemia. PLAN: The patient remains on midodrine for the hypotension. The patient is now tolerating some amount of diet. The patient has been seen by surgical service. The patient does have ileostomy in place. We will continue to follow closely. Electrolytes have all been aggressively repleted. Once the patient is discharged, the patient will follow up in the [facility]. TID: [id number] RECEIPT: [id number]
--- NOTE | 2025-09-05 23:40 | NUR ---
NURSING NOTE (ileostomy) Patient noted to have bright red output from ileostomy. Vitals taken: BP: 102/61 HR: 85, T: 98.5 RR: 18 O2 sat: 95% on room air. Nurse Practitioner Jon menezes on unit at this time. Made aware of situation. Orders given. Will continue to monitor.
[2025-09-06] VITALS (8 sets, daily range): BP systolic 102–117; BP diastolic 56–68; PULSE 81–87; RESP 16–18; TEMP 98–98.9; O2SAT 94–98
[2025-09-06 00:09] LABS: IMMATURE GRANULOCYTE ABSOLUTE 0.03 K/uL (0-1); NUCLEATED RED BLOOD CELLS 0.0 % (0.0-0.19); PLATELET COUNT (AUTO) 117 K/uL (130-400); RED BLOOD CELL COUNT(AUTO) 3.38 MIL/uL (4.00-5.50); RED CELL DISTRIBUTION WIDTH 18.1 % (11.0-15.5); WHITE BLOOD COUNT (AUTO) 4.8 K/uL (4.8-10.8)
[2025-09-06] MEDS: LACTATED RINGERS 1000ML 1,000 ML IV SCH (00:13)
[2025-09-06 00:22] LABS: CREATININE 0.7 mg/dL (0.5-1.0); GLOMERULAR FILTR. RATE CALC 101.0 mL/min (>90); GLUCOSE,RANDOM 132.0 mg/dL (70-105); SODIUM SERUM 132.0 mmol/L (136-145); UREA NITROGEN, BLOOD 10.0 mg/dL (7-18)
[2025-09-06 00:26] LABS: ASPARTATE AMINOTRANSFERASE 46.0 U/L (10-37); TOTAL PROTEIN, SERUM 6.6 g/dL (6.0-8.3)
--- NOTE | 2025-09-06 00:34 | NUR ---
CT ABDO W/O ORDERED. I CONFIRMED WITH NURSE IF ONLY UPPER PORTION OF ABDOMEN WAS NEEDED BEFORE PT WAS BROUGHT DOWN FOR CT SCAN. RN CONFIRMED PELVIS WAS NOT NEEDED.
--- NOTE | 2025-09-06 01:35 | HMCIMG ---
EXAMINATION CT Abdomen Without IV Contrast CLINICAL HISTORY Patient presents with abdominal pain. TECHNIQUE Axial computed tomography images of the abdomen were obtained without intravenous contrast. CONTRAST No IV contrast administered. COMPARISON 09/01/2025. FINDINGS: LUNG BASES: Residual trace left pleural effusion with adjacent atelectasis. Interval resolution of previously described mild right pleural effusion. Stable calcified nodule in the right lower lobe. LIVER: Nodular hepatic contour consistent with cirrhosis. GALLBLADDER AND BILE DUCTS: Multiple punctate calcifications in the gallbladder wall. No biliary ductal dilatation. PANCREAS AND SPLEEN: Stable perisplenic fluid collection with drainage catheter in situ and adjacent fat stranding. ADRENAL GLANDS: Unremarkable. KIDNEYS AND URETERS: Normal in size and morphology. No hydronephrosis or nephrolithiasis. STOMACH AND BOWEL: Stomach distended with food residue. Right lumbar ileostomy with stable postsurgical bowel changes. Uncomplicated colonic diverticula. A component of mild constipation. PERITONEUM: Stable mild mesenteric edema. Significant interval resolution of the previously demonstrated minimal free fluid along the greater curvature of the stomach. No new free fluid or free air. LYMPH NODES: No significant lymphadenopathy. VASCULATURE: No abdominal aortic aneurysm. BONES: Multilevel mild spondylosis. IMPRESSION: Nodular cirrhotic liver. Stable perisplenic fluid collection with drainage catheter in situ and adjacent fat stranding. Right lumbar ileostomy with stable postsurgical bowel changes. Residual trace left pleural effusion with adjacent atelectasis. Interval resolution of the right pleural effusion. Stable calcified right lower lobe pulmonary nodule. Stomach distended with food residue. Uncomplicated colonic diverticula with mild constipation. Stable mild mesenteric edema with interval resolution of previously described minimal free fluid. Multiple punctate calcifications in the gallbladder wall, likely cholesterolosis. /Kenna
[2025-09-06 05:13] LABS: NUCLEATED RED BLOOD CELLS 0.0 % (0.0-0.19); PLATELET COUNT (AUTO) 115.0 K/uL (130-400); RED BLOOD CELL COUNT(AUTO) 3.13 MIL/uL (4.00-5.50); RED CELL DISTRIBUTION WIDTH 17.8 % (11.0-15.5); WHITE BLOOD COUNT (AUTO) 4.6 K/uL (4.8-10.8)
[2025-09-06 05:44] LABS: CREATININE 0.6 mg/dL (0.5-1.0); GLOMERULAR FILTR. RATE CALC 105.0 mL/min (>90); GLUCOSE,RANDOM 133.0 mg/dL (70-105); SODIUM SERUM 133.0 mmol/L (136-145); UREA NITROGEN, BLOOD 10.0 mg/dL (7-18)
--- NOTE | 2025-09-06 08:42 | HMCIMG ---
EXAMINATION: SPECTRAL DOPPLER ULTRASOUND EXAMINATION OF THE RIGHT UPPER EXTREMITY VEINS. CLINICAL HISTORY: To rule out DVT. COMPARISON: None. TECHNIQUE: Grayscale, color, and spectral Doppler images of the right upper extremity veins are submitted. FINDINGS: The internal jugular, subclavian, basilic, and brachial veins are patent. These veins show normal flow with physiological changes of phasicity and augmentation. The right axillary vein and cephalic veins are non-compressible and there is no flow on augmentation. IMPRESSION: Acute deep vein thrombosis in the right axillary vein. Right cephalic vein thrombosis. There is no deep vein thrombosis in the remainder of the right upper extmreiyt, /Doyle
--- NOTE | 2025-09-06 11:39 | NUR ---
MG LEVEL 1.4, GIVEN 2GM OG MG PRIOR THIS AM; A/P DR NAVARRETE TO GIVE 1 MOR DOSE OF IV MG
--- NOTE | 2025-09-06 14:26 | PN ---
[facility] PROGRESS NOTE Date of Service: Sep 06, 2025 Time of Service: 14:25 SUBJECTIVE: As per admission notes "50-year-old female with underlying history of type 2 diabetes mellitus, history of liver cirrhosis, prior history of esophageal varices requiring banding in May,, history of robotic sigmoid resection with takedown of colovesical fistula who was recently hospitalized in [facility] from 07/20/2025 - 08/25/2025 patient was found to have bilious peritonitis with 2 mm perforation of colonic anastomosis requiring diagnostic laparoscopy, abdominal washout and drain placement with creation of diverting loop ileostomy. Patient was hospitalized for about one month and subsequently required IR guided drain placement as well. She was just discharged from the hospital on 08/25/2025. Patient's daughter reports that patient was having nausea and vomiting with poor oral intake at home. She started to have coffee-ground emesis today and she also noticed some right streaks of blood with a coffee-ground emesis. Stool has also been dark in the ileostomy bag. Patient is having moderate intensity abdominal pain as well. She has not been taking any NSAIDs. Daughter reports that patient has been very weak since her discharge in very debilitated. Patient denies active chest pain. Denies active shortness of breath. On presentation to the hospital, patient was noted to be afebrile with T-max of 97.5 F, heart rate of 100, blood pressure of 127/91. [place] [address], hemoglobin of 16.4, platelet count of 825794. BMP was repeated twice, BMP showed sodium of 117, potassium 7.0, chloride of 88, CO2 of seven, BUN of 83, creatinine 5.0, blood glucose of 99, calcium 10.4. Blood gas showed pH of 7.28, bicarb of close to eight, CO2 of 18, lactic acid of three. Patient will be admitted to ICU. Patient is presenting with severe renal failure with hyperkalemia and severe metabolic acidosis. Patient also with concerns for upper GI bleeding with coffee-ground emesis. Patient remains critically ill consultation with Intensive Care, Nephrology, GI will be requested. We we will obtain a CT abdomen pelvis without contrast for further evaluation as well. Patient is critically ill. Plan of care was discussed with patient and daughter at bedside" 08/30/2025 Patient was seen and examined at bedside. Her blood pressure has been low, 88/54, heart rate 86. She is currently on Levophed 0.2 Mcg, octreotide, Protonix, sodium bicarbonate drip. She received 2nd hemodialysis session yesterday. As per Nephrology, she will continue to receive dialysis inpatient. Her high anion gap metabolic acidosis is improving with sodium 134, carbon dioxide 31, chloride 96. Her creatinine has trended down from 5-1.8. General surgery consult is on board and we will follow up with their recommendations. Additionally, in the light of history of liver cirrhosis with esophageal varices, her recent hematemesis will be evaluated with GI consult and possible endoscopy. We discussed this with the patient and her family members present besides. Patient is started on Merrem and blood culture, urine cultures show no growth so far. Her lactic acid has trended down from 3.1 to 2.1. 08/31/2025 Patient was seen and examined at bedside in room 214. She continues to be on Levophed 0.1 which is being weaned off. She is also on Sandostatin and Protonix drip. Patient complained of mild pain along the sides of her drain but denied any nausea or episode of vomiting since Saturday. Minimal drainage was noted. Sodium bicarb was discontinued as per Nephrology. Her lab markers have improved with sodium 141, chloride 104, bicarb 32, creatinine 1, BUN 16, ammonia 34. Her urine sodium was less than 20 consistent with prerenal CYNTHIA. We are pending blood and urine culture results. Her total output in the past24 hours has been optimal, 2069. She is on sodium chloride 150 mL/hour. We are following gastroenterology recommendations of possible upper endoscopy in the morning if patient condition remains stable. 09/01/2025 Patient was seen and examined at bedside. She is off vasopressor support and is hemodynamically stable. Her chest x-ray showed opacity in the left lower lobe and we will follow up with CT scan of chest. She is started on 2nd day of ppm today. She successfully underwent EGD which showed small, less than 5 mm, esophageal varices with scar in the lower 3rd of the esophagus. Patient was noted to have portal hypertensive gastropathy which was biopsied. Duodenum was normal during examination. Patient is receiving Merrem and her blood culture and urine cultures have shown no growth so far. Due to her elevated ammonia levels, she will be started on lactulose. We will proceed with caution with respect to normal saline as patient's BNP is elevated. 09/02/2025 The patient has been seen and examined earlier this morning during my rounding, case discussed with the RN, no acute events overnight, blood pressure 118/71, h eart rate of 56, afebrile, saturating normal on room air, CBC showing hemoglobin 8.5, hematocrit 36.8, WBC of 4.4, platelet count of 99, sodium 137, potassium 3.8, BUN of 18, creatinine 0.7, magnesium Lasix. Results of blood culture no growth after four days. Urine culture no growth. EGD reviewed, small less than 5 mm esophageal varices with scar in the lower 3rd of the esophagus. Patient with a bottle hypertensive gastropathy, status post biopsy, duodenum was normal during examination. Patient to be downgraded to the medical floor, continue banana bag, continue Protonix 40 mg IV b.i.d.. Plan for possible PEG tube placement. 09/03/2025 Patient was seen and examined at bedside. She has been advanced to GI soft bland diet which she is tolerating really well and having output in her ileostomy bag. As per surgeon, if she continues to tolerate diet, she may not require G-tube placement on discharge. Patient did not complain of any significant pain and seemed to be doing really well. Her cholecystostomy tube was removed but her splenic percutaneous tube is still in position and may require further IR intervention for repositioning due to persistent and mildly increased perisplenic fluid collection. She is receiving lactulose and her ammonia levels have gone down. Her acute renal failure continues to resolve and her vitals are also stable. No growth on urine and blood culture so far. We have shifted her from Protonix IV to p.o. as per GI recommendations. 09/04/2025 Patient was seen and examined at bedside in room 302. She has been tolerating GI soft bland diet, ileostomy output seems very high, liquid consistency and patient will be receiving fiber 3 times a day. Patient may require further IR intervention on Saturday for splenic drain reposition due to persistent and mildly increased perisplenic fluid collection. Vitals are stable, blood and urine culture shows no growth so far. 09/05/2025 Patient was seen and examined at bedside. She is tolerating GI soft bland diet, and her ileostomy output is high although liquid in consistency. We have decreased lactulose to b.i.d. from t.i.d. She continues on fiber 3 times a day as per surgery recommendations to bulk up the stool from the ileostomy in order to decrease the chances of further dehydration from high ileostomy output. Additionally, nodular swelling was appreciated in her right upper extremity which could be concerning for superficial venous thrombosis for which ultrasound Doppler of right upper extremity has been ordered. Patient is currently undergoing bladder training while being catheterized and we will proceed with Dueñas catheter removal as tolerated. 09/06/2025: Patient was seen and examined at bedside in room 302. She is tolerating GI soft bland diet and her ileostomy output has thicker consistency. Nurse reported that there was bright red blood in the ileostomy bag last night however this morning it was free from blood. Venous Doppler of the right upper extremity revealed deep vein thrombosis in right axillary vein and right cephalic vein, advice from Gastroenterology and Hematology was requested to start anticoagulation. Patient was started on Lovenox 1 mg/kg body weight as per Hematology recommendations. Patient will be continued on IV Protonix 40 mg b.i.d. REVIEW OF SYSTEMS CONSTITUTIONAL: malaise, poor oral intake -resolving NEUROLOGICAL: Denies headache, motor weakness, sensory deficit, vertigo/spinning sensation, gait abnormalities, or tremors. ENT: No hearing loss, otalgia, otorrhea, rhinitis, rhinorrhea, hoarseness, or sore throat. CARDIOVASCULAR: Denies any exertional angina, dyspnea on exertion, orthopnea, paroxysmal nocturnal dyspnea, palpitations, life-threatening arrhythmias, claudi cation. PULMONARY: Denies any shortness of breath, cough, phlegm/sputum, hemoptysis, pleuritic chest pain. SLEEP: Denies morning headaches, daytime somnolence or napping. Denies difficulty falling asleep, staying asleep, waking from sleep. Denies knowledge of snoring. GASTROINTESTINAL: nausea, vomiting, abdominal pain, melena, coffee ground emesis - resolved GENITOURINARY: Urine output was very low - resolving PHYSICAL EXAM GENERAL APPEARANCE: The patient is awake, alert, and oriented, answering to all questions with very mild pain around her drains. NEUROLOGICAL: Cranial nerves II-XII grossly intact. Neurological examination is non focal with spontaneous movement of upper and lower extremities HEENT: Face is symmetric. Pupils are equal and reactive. Extraocular movements are intact. NECK: Supple. No JVD. No thyromegaly. No submental, submandibular, pre- /postauricular, occipital or supraclavicular lymphadenopathy. CHEST: Normal chest expansion. No Telemetry. LUNGS: Absence of any rales, rhonchi or any wheezing. CARDIOVASCULAR: Regular. S1 and S2 normal. No appreciable rubs, murmurs or gallops. ABDOMEN: no rebound noted, there is perisplenic abdominal drain noted with ileostomy bag. : Deferred. Currently catheterized. EXTREMITIES: Swelling in right upper extremity. Mild ecchymosis. Vital Signs (last 8hr) Date Time Temp Pulse Resp B/P (MAP) Pulse Ox O2 Delivery O2 Flow Rate FiO2 09/06/25 12:00 98.1 81 18 106/56 94 Room Air 09/06/25 10:54 94 Room Air* 0 21 09/06/25 08:00 98.2 18 112/62 94 Room Air LABS: Laboratory: Test 09/06/25 10:58 09/06/25 04:23 09/06/25 00:46 09/05/25 00:03 Range/Units Whole Blood Glucose 83 70-110 MG/DL White Blood Count 4.6 L 4.8-10.8 K/uL Red Blood Count 3.13 L 4.00-5.50 MIL/uL Hemoglobin 9.5 L 12.0-16.0 g/dL Hematocrit 29.3 L 36-48 % Mean Corpuscular Volume 93.6 79-99 fL Mean Corpuscular Hemoglobin 30.4 27.0-33.0 pg Mean Corpuscular Hemoglobin Concent 32.4 32.0-36.0 g/dL Red Cell Distribution Width 17.8 H 11.0-15.5 % Platelet Count 115 L 130-400 K/uL Mean Platelet Volume 10.6 H 7.5-10.5 fL Nucleated Red Blood Cells 0.0 0.0-0.19 % Sodium Level 133 L 136-145 mmol/L Potassium Level 4.1 3.5-5.1 mmol/L Chloride Level 107 101-111 mmol/L Carbon Dioxide Level 17 L 21-32 mmol/L Blood Urea Nitrogen 10 7-18 mg/dL Creatinine 0.6 0.5-1.0 mg/dL Glomerular Filtration Rate Calc 105 >90 mL/min Random Glucose 133 #H 70-105 mg/dL Total Calcium 8.0 L 8.5-10.1 mg/dL Magnesium Level 1.40 L 1.80-2.40 mg/dL Stool Occult Blood POSITIVE H NEGATIVE Immature Granulocyte % (Auto) 0.6 0-1 % Neutrophils (%) (Auto) 63.1 40.0-77.0 % Lymphocytes (%) (Auto) 22.8 21.0-51.0 % Monocytes (%) (Auto) 7.9 3.0-13.0 % Eosinophils (%) (Auto) 5.0 0.0-8.0 % Basophils (%) (Auto) 0.6 0.0-5.0 % Neutrophils # (Auto) 3.0 1.8-7.7 K/uL Lymphocytes # (Auto) 1.1 1.0-4.8 K/uL Monocytes # (Auto) 0.4 0.1-1.0 K/uL Eosinophils # (Auto) 0.24 0.00-0.70 K/uL Basophils # (Auto) 0.03 0.00-0.20 K/uL Absolute Immature Granulocyte (auto 0.03 0-1 K/uL Red Blood Cell Morphology See comments Total Bilirubin 0.5 0.2-1.0 mg/dL Direct Bilirubin 0.2 0.0-0.3 mg/dL Aspartate Amino Transf (AST/SGOT) 46 H 10-37 U/L Alanine Aminotransferase (ALT/SGPT) 20 12-78 U/L Alkaline Phosphatase 139 H 50-136 U/L Total Protein 6.6 6.0-8.3 g/dL Albumin 2.2 L 3.5-5.0 g/dL Current Medications Medications (Trade) Dose Ordered Sig/Gregory Route PRN Reason Start Time Stop Time Status Last Admin Dose Admin Acetaminophen (TYLenol 325MG TAB) 650 mg Q6H PRN PO MILD PAIN (1-3) 08/29/25 10:00 09/28/25 09:59 Albuterol (DUOneb) 1 udvial Q6H PRN IH SHORTNESS OF BREATH 08/29/25 10:00 09/28/25 09:59 Atorvastatin Calcium (LIPItor 10MG) 5 mg HS PO 09/05/25 21:00 10/05/25 20:59 09/05/25 21:31 5 MG Calcium Gluconate (Calcium Gluc 1gm Vial) 1 gm ONCE IV 08/29/25 09:30 08/29/25 09:23 DC Cyclobenzaprine HCl (Cyclobenzaprine HCl) 5 mg TID PRN PO muscle spasms 09/05/25 11:00 10/05/25 10:59 Dextrose (D50w) 50 ml AD PRN IV HYPOGLYCEMIA PROTOCOL 08/29/25 10:00 09/28/25 09:59 Dextrose/Sodium Chloride 1,000 ml @ 0 mls/hr AD IV 08/29/25 12:30 08/29/25 16:05 DC Duloxetine HCl (CymbALTA 30 mg CAP) 30 mg BID PO 09/03/25 21:00 10/03/25 20:59 09/05/25 21:31 30 MG Enoxaparin Sodium (Lovenox (Pharmacy To Dose)) 1 unit Q12H SQ 09/06/25 13:30 09/06/25 13:21 DC Enoxaparin Sodium (Lovenox 60mg) 60 mg Q12H SQ 09/06/25 13:30 10/06/25 13:29 Glucagon (Glucagon 1mg Kit) 1 mg AD PRN IM HYPOGLYCEMIA PROTOCOL 08/29/25 10:00 09/28/25 09:59 Home Med (Home Medication) (Medroxyprogesterone Acetate (Provera) 1 TAB) DAILY PO 09/06/25 09:00 10/06/25 08:59 Insulin Human Regular (humuLIN R 100 UNIT/ML 3ML) 5 unit ONCE IV 08/29/25 09:30 08/29/25 09:25 DC Insulin Human Regular (humuLIN R 100 UNIT/ML 3ML) INSULIN SLIDING SCAL... ACHS SQ 08/29/25 11:30 09/28/25 11:29 09/05/25 12:31 2 UNIT Insulin Human Regular 100 unit/ Sodium Chloride 101 ml @ 0 mls/hr PROTOCOL IV 08/29/25 12:30 08/29/25 16:05 DC Lactated Ringer's 1,000 ml @ 100 mls/hr Q10H IV 09/06/25 00:00 10/06/25 00:00 09/06/25 08:35 100 MLS/HR Lactulose (Constulose 20gm/ 30ml Udcup) 20 gm BID PO 09/05/25 21:00 10/01/25 13:59 09/05/25 21:30 20 GM Lactulose (Constulose 20gm/ 30ml Udcup) 20 gm TID PO 09/01/25 14:00 09/05/25 10:44 DC 09/05/25 08:06 20 GM Magnesium Sulfate 50 ml @ 0 mls/hr PROTOCOL IV 08/29/25 12:30 08/29/25 16:05 DC Magnesium Sulfate 50 ml @ 0 mls/hr PROTOCOL IV 08/30/25 10:00 09/29/25 09:59 09/06/25 11:39 25 MLS/HR Magnesium Sulfate 50 ml @ 0 mls/hr PROTOCOL IV 09/02/25 13:30 09/02/25 13:04 DC Magnesium Sulfate 50 ml @ 0 mls/hr PROTOCOL IV 09/03/25 08:00 09/03/25 07:43 DC Meropenem (Merrem 500mg) 500 mg Q24H IVPB 08/29/25 10:00 08/31/25 09:59 DC 08/30/25 09:46 500 MG Meropenem (Merrem 500mg) 500 mg Q24H IVPB 08/31/25 23:30 09/10/25 23:29 09/05/25 23:23 500 MG Midodrine (PROAMatine 5 MG TABLET) 10 mg BID PO 09/01/25 09:00 08/31/25 18:36 DC Midodrine (PROAMatine 5 MG TABLET) 10 mg TID PO 09/01/25 09:00 10/01/25 08:59 09/05/25 21:31 10 MG Morphine Sulfate (morPHINE 2MG SYG) 1 mg Q4H PRN IVP SEVERE PAIN (7-10) 09/05/25 13:30 09/12/25 13:29 09/06/25 02:04 1 MG Morphine Sulfate (morPHINE 2MG SYG) 2 mg Q4H PRN IVP SEVERE PAIN (7-10) 09/01/25 05:30 09/05/25 13:19 DC 09/05/25 04:28 2 MG Norepinephrine Bitartrate 32 mg/ Sodium Chloride 250 ml @ 0 mls/hr Q0M STAT IV 08/29/25 21:01 08/29/25 21:07 DC 08/29/25 21:13 0 MLS/HR Octreotide Acetate 1250 mcg/ Sodium Chloride 250 ml @ 0 mls/hr PROTOCOL IV 08/29/25 08:30 09/01/25 10:32 DC 08/31/25 10:18 5 MLS/HR Ondansetron HCl (zoFRAN 4MG INJ) 4 mg Q6H PRN IVP NAUSEA/VOMITING 08/29/25 09:30 09/28/25 09:29 09/03/25 04:33 4 MG Pantoprazole Sodium (PROTonix 40MG INJ) 40 mg BID IVP 09/01/25 21:00 09/03/25 14:32 DC 09/03/25 09:16 40 MG Pantoprazole Sodium (PROTonix 40MG INJ) 40 mg BID IVP 09/06/25 09:00 10/06/25 08:59 09/06/25 08:38 40 MG Pantoprazole Sodium (PROTonix 40MG TAB) 40 mg DAILY PO 09/04/25 09:00 09/06/25 00:03 DC 09/05/25 08:06 40 MG Pantoprazole Sodium 80 mg/ Sodium Chloride 100 ml @ 10 mls/hr Q10H IV 08/29/25 08:30 09/01/25 10:32 DC 09/01/25 05:50 10 MLS/HR Pharmacy Profile Note (Pharmacy Communication) 1 each ONCE MISC 08/29/25 09:30 08/29/25 09:35 DC Pharmacy Profile Note (Pharmacy Communication) 1 each ONCE MISC 08/31/25 23:30 08/31/25 23:17 DC Potassium Chloride 100 ml @ 50 mls/hr AD PRN IV POTASSIUM PROTOCOL 08/29/25 12:30 09/28/25 12:29 09/02/25 06:26 50 MLS/HR Psyllium Hydrophilic Mucilloid (Metamucil) 1 tbs TID PO 09/04/25 14:00 10/04/25 13:59 09/05/25 21:30 1 TBS Sodium Bicarbonate 150 meq/Dextrose 1,150 ml @ 125 mls/hr Q9H12M IVP 08/29/25 10:00 08/30/25 10:12 DC 08/30/25 08:07 125 MLS/HR Sodium Chloride 250 ml @ 0 mls/hr AD IV 08/29/25 17:30 09/28/25 17:29 Sodium Chloride 1,000 ml @ 0 mls/hr Q0M IV 08/29/25 16:00 08/29/25 16:03 DC Sodium Chloride 1,000 ml @ 0 mls/hr Q0M IV 08/29/25 16:00 09/01/25 08:01 DC 08/29/25 16:10 500 MLS/HR Sodium Chloride 1,000 ml @ 125 mls/hr Q8H IV 08/29/25 09:30 08/29/25 09:57 DC Sodium Chloride 1,000 ml @ 150 mls/hr Q6H40M IV 08/29/25 18:30 09/01/25 09:29 DC 08/31/25 16:16 150 MLS/HR Sodium Chloride 1,000 ml @ 200 mls/hr PROTOCOL IV 08/29/25 12:30 08/29/25 16:05 DC Sodium Chloride 1,000 ml @ 999 mls/hr Q1H1M IV 08/29/25 09:30 08/29/25 09:06 DC Thiamine HCl (Vitamin B-1) 200 mg Q12H IVP 08/29/25 09:30 09/02/25 09:30 DC 09/02/25 08:56 200 MG DIAGNOSTICS / RADIOLOGY: [ ] PATIENT: DALLAS BUCHANAN MR#: [id number] : 1970 SEX: F AGE: 55 LOCATION: 3AH ORDER [id number] STATUS: ADM IN REPORT#: [id number] SERVICE [id number] REASON: R/o DVT versus SVT ORDERING PHYSICIAN: SONJA PERALTA MD PROCEDURE: VENOUS UNI - US VENOUS DOPPLER UNILATERAL ADDENDUM REPORT ADDENDUM: Results were shared by telephone at 10:59am on 09-06-25 and acknowledged by Patients Nurse Britt Yesica /[place] EXAMINATION: SPECTRAL DOPPLER ULTRASOUND EXAMINATION OF THE RIGHT UPPER EXTREMITY VEINS. CLINICAL HISTORY: To rule out DVT. COMPARISON: None. TECHNIQUE: Grayscale, color, and spectral Doppler images of the right upper extremity veins are submitted. FINDINGS: The internal jugular, subclavian, basilic, and brachial veins are patent. These veins show normal flow with physiological changes of phasicity and augmentation. The right axillary vein and cephalic veins are non-compressible and there is no flow on augmentation. IMPRESSION: Acute deep vein thrombosis in the right axillary vein. Right cephalic vein thrombosis. There is no deep vein thrombosis in the remainder of the right upper extmreiyt, /[place] DICTATED BY: TOBI LEAHY MD DATE: 09/06/251154 ELECTRONICALLY SIGNED BY: DATE: EXAMINATION: SPECTRAL DOPPLER ULTRASOUND EXAMINATION OF THE RIGHT UPPER EXTREMITY VEINS. CLINICAL HISTORY: To rule out DVT. COMPARISON: None. TECHNIQUE: Grayscale, color, and spectral Doppler images of the right upper extremity veins are submitted. FINDINGS: The internal jugular, subclavian, basilic, and brachial veins are patent. These veins show normal flow with physiological changes of phasicity and augmentation. The right axillary vein and cephalic veins are non-compressible and there is no flow on augmentation. IMPRESSION: Acute deep vein thrombosis in the right axillary vein. Right cephalic vein thrombosis. There is no deep vein thrombosis in the remainder of the right upper extmreiyt, /[place] DICTATED BY: TOBI LEAHY MD DATE: 09/06/25941 ELECTRONICALLY SIGNED BY: TOBI LEAHY MD DATE: 09/06/25941 PATIENT: DALLAS BUCHANAN MR#: [id number] : 1970 SEX: F AGE: 55 LOCATION: 3AH ORDER [id number] STATUS: ADM IN REPORT#: [id number] SERVICE 2346 REASON: abdiominal pain ORDERING PHYSICIAN: CYNTHIA ALEXANDER POT TENDER PROCEDURE: ABDO WO - CT ABDOMEN W/O CONTRAST EXAMINATION CT Abdomen Without IV Contrast CLINICAL HISTORY Patient presents with abdominal pain. TECHNIQUE Axial computed tomography images of the abdomen were obtained without intravenous contrast. CONTRAST No IV contrast administered. COMPARISON 09/01/2025. FINDINGS: LUNG BASES: Residual trace left pleural effusion with adjacent atelectasis. Interval resolution of previously described mild right pleural effusion. Stable calcified nodule in the right lower lobe. LIVER: Nodular hepatic contour consistent with cirrhosis. GALLBLADDER AND BILE DUCTS: Multiple punctate calcifications in the gallbladder wall. No biliary ductal dilatation. PANCREAS AND SPLEEN: Stable perisplenic fluid collection with drainage catheter in situ and adjacent fat stranding. ADRENAL GLANDS: Unremarkable. KIDNEYS AND URETERS: Normal in size and morphology. No hydronephrosis or nephrolithiasis. STOMACH AND BOWEL: Stomach distended with food residue. Right lumbar ileostomy with stable postsurgical bowel changes. Uncomplicated colonic diverticula. A component of mild constipation. PERITONEUM: Stable mild mesenteric edema. Significant interval resolution of the previously demonstrated minimal free fluid along the greater curvature of the stomach. No new free fluid or free air. LYMPH NODES: No significant lymphadenopathy. VASCULATURE: No abdominal aortic aneurysm. BONES: Multilevel mild spondylosis. IMPRESSION: Nodular cirrhotic liver. Stable perisplenic fluid collection with drainage catheter in situ and adjacent fat stranding. Right lumbar ileostomy with stable postsurgical bowel changes. Residual trace left pleural effusion with adjacent atelectasis. Interval resolution of the right pleural effusion. Stable calcified right lower lobe pulmonary nodule. Stomach distended with food residue. Uncomplicated colonic diverticula with mild constipation. Stable mild mesenteric edema with interval resolution of previously described minimal free fluid. Multiple punctate calcifications in the gallbladder wall, likely cholesterolosis. /[place] DICTATED BY: ELDON MILLER Jr., MD DATE: 09/06/25233 ELECTRONICALLY SIGNED BY: ELDON MILLER Jr., MD DATE: 09/06/25233 ASSESSMENT: Acute upper GI bleeding- Hematemesis, dark output from ileostomy bag, POA, Improving Acute DVT of right axillary vein and right cephalic vein High output from ileostomy bag, not POA Hemorrhagic shock versus hypovolemic shock, POA, Resolved Normocytic normochromic anemia, POA Hypovolemic hypochloremic hyponatremia, POA, Resolved Severe hyperkalemia, POA, Resolved Hypokalemia, Not POA, resolved Hypophosphatemia, Not POA High anion gap metabolic acidosis, POA, Resolved Hyperammonemia, POA, Improving Lactic acidosis, POA, Resolved Hyperphosphatemia, POA, Resolved Acute renal failure - Prerenal Acute Kidney Injury, POA, resolved Starvation Ketoacidosis, POA Rule out occult sepsis, POA Recent extended hospitalization in [facility], 07/20/2025- 08/25/2025 for sepsis, acute abdomen, POA Severe Dehydration, POA, Improving History of esophageal varices, POA Acute Decompensated liver cirrhosis, POA Hx of acute cholecystitis, s/p cholecystostomy tube placement on 08/02/2025. Perisplenic abscess, s/p CT-guided drainage placement on 08/09/2025. 2.7 x 2.2 x 5.1 cm infrasplenic collection History of gastritis, POA Hx of Generalized peritonitis with ESBL E coli infection, POA Moderate Protein calorie malnutrition POA History of bilious peritonitis with small colonic anastomosis perforation s/p diagnostic laparoscopy, abdominal washout, ileostomy creation by Dr. Gann, Hx of DM II, POA Recent colovesical fistula repair with sigmoid colon resection and anastomosis on PLAN: High output from ileostomy * Continue fiber 3 times a day. Secretions have thickened. * Monitor for any signs of dehydration including vitals and BMP. * Lactulose decreased to b.i.d. from t.i.d.. * Monitor input and output including ileostomy bag. Acute DVT of right axillary vein and right cephalic vein * Patient developed nodular, tender swelling along the venous distribution in right upper extremity * Venous doppler on 09/05/25 revealed acute DVT of right axillary vein and right cephalic vein * Hematology recommended to start Lovenox1 mg/kg body weight; Start SQ Lovenox 60 mg Q12 * Gastroenterology cleared patient for anticoagulation Acute upper GI bleeding- Hematemesis, dark output from ileostomy bag * EGD was done which showed less than 5 mm esophageal varices with scar in the lower 3rd of the esophagus, hypertensive gastropathy, status post biopsy, duodenum was normal during examination. * Patient received Sandostatin and Protonix drip on presentation which were subsequently stopped . * Patient resumed on IV Protonix 40 mg b.i.d. * Patient continues on GI soft bland diet and she is tolerating it well producing output in her ileostomy bag. * Ileostomy output was very high and liquid consistency, started fiber3 times daily. Normocytic normochromic anemia, iron deficiency * Patient's hemoglobin stable at 9.5 * Anemia of chronic disease versus iron deficiency versus blood loss. * Iron 31, TIBC 155, % sat 20 * Keep hemoglobin above 7 Acute renal failure, Prerenal Acute Kidney Injury, Dehydration, resolved * On Presentation, patient's creatinine was 5, BUN 80. * FENa <0.2, Stone <20 - Urine microscopy showed Hyaline and granular casts * patient was started on NaCl 150mls/hr which was stopped. * Bicarb drip was discontinued as per nephrology. * patient is successfully weaned off Levophed * Patient received emergent hemodialysis session for elevated renal parameters as well as electrolyte derangements including Hyperkalemia and acidosis. * Her creatinine and BUN have improved to 1.0 and 16 respectively (08/31) * Transfuse as needed to keep Hb above 7 (Hb=9.0, 08/31/) * Monitor input and output. Patient's total output in the past24 hours is 2070, versus 3950 input. * We will repeat a.m. labs and follow up with Nephrology recommendations. Hyperammonemia * On 09/02, ammonia levels were 39. * Continue lactulose 20 mg bid * Follow up with ammonia levels. ATTESTATION BY PHYSICIAN I have seen and examined the patient. I reviewed the documentation, medical decision making, and treatment plan as noted by the resident physician above. I agree with the findings and plan of care. AYAKA BARR MD, HARSHAVARDHA MD Sep 06, 2025 14:26
[2025-09-06] MEDS: ENOXAPARIN SODIUM 60 MG/0.6 ML SQ SCH (14:29)
--- NOTE | 2025-09-06 14:42 | NUR ---
DAUGHTER , GLADYS AT BEDSIDE WITH ,ANY CONCERNS RE: DRAIN, DVT TO ARM AND BEING ON LOVENOX. HAS MANY CONCERNS. INFORMED DR GOYAL AND CHARGE NURSE. DAUGHTER/PATIENT AWARE OF LOVENOX BEING ADMINISTERED.
--- NOTE | 2025-09-06 15:30 | NUR ---
DAUGHTER REQUESTING PHYSICAL THERAPY TO WRK WITH PATIENT, SPOKE TO DARVIN FROM PT; A/P PT SHE HAS BEEN DC'D SHE IS ABLE TO WALK > 800 FEET WITH STAND BY ASSIST. INFORMED THAT PATIENT AT THIS TIME IS DC'D AND THAT BRUCE IS ABLE TO AMBU;ATE HER. DAUGHTER UPSET SHE STATED "THERAPISTS ONLY CAME ONCE AND THAT'S IT" AND LEFT THE ROOM/BUILDING.
--- NOTE | 2025-09-06 16:30 | PN ---
Interval history: This 55-year-old female seen in her room resting Patient has been receiving fiber with improvement noted to her bowel movements being less liquid Patient tolerating diet Venous Doppler study yesterday concerning for acute deep vein thrombosis of the right axillary vein Anticoagulation started Patient with one episode of bloody bowel movement through ostomy reported but none since yesterday WBCs and hemoglobin remained stable Physical exam General: Awake alert and oriented Heart: Regular rate and rhythm} Lungs: Clear to auscultation no distress Abdomen: [Soft, nontender, nondistended ostomy functioning properly Assessment and Plan: From surgical standpoint patient to continue with the current medical management We will wait for clearance and continued management for DVT for potential discharge Continue with fiber supplement to assist with bulking of bowel movements Dr. Gann to be updated in patient's status and nursing report any further acute events Surgical case has been discussed with my supervising physician in the above plan was formulated and agreed upon We appreciate the hospitalist team for us to participate in patient's care. Greater than 45 minutes of time spent patient, reviewing chart, working on documentation Vitals/Labs Vital Signs Date Time Temp Pulse Resp B/P (MAP) Pulse Ox O2 Delivery O2 Flow Rate FiO2 09/06/25 12:00 98.1 81 18 106/56 94 Room Air 09/06/25 10:54 0 21 Laboratory Tests 09/06/25 04:23 Medications Current Medications Octreotide Acetate 50 mcg ONCE ONCE IV Last administered on 08/29/25at 09:02; Start 08/29/25 at 08:30; Stop 08/29/25 at 08:31; Status DC Octreotide Acetate 1250 mcg/ Sodium Chloride 250 ml @ 0 mls/hr PROTOCOL IV Last administered on 08/31/25at 10:18; Start 08/29/25 at 08:30; Stop 09/01/25 at 10:32; Status DC Pantoprazole Sodium 80 mg ONCE ONCE IVP Last administered on 08/29/25at 09:02; Start 08/29/25 at 08:30; Stop 08/29/25 at 08:31; Status DC Pantoprazole Sodium 80 mg/ Sodium Chloride 100 ml @ 10 mls/hr Q10H IV Last administered on 09/01/25at 05:50; Start 08/29/25 at 08:30; Stop 09/01/25 at 10:32; Status DC Promethazine HCl 25 mg ONCE ONCE IM Last administered on 08/29/25at 09:07; Start 08/29/25 at 08:30; Stop 08/29/25 at 08:33; Status DC Sodium Chloride 1,000 ml @ 999 mls/hr Q1H1M IV; Start 08/29/25 at 09:30; Stop 08/29/25 at 09:06; Status DC Calcium Gluconate 1 gm/Sodium Chloride 110 ml @ 110 mls/hr ONCE ONCE IV Last administered on 08/29/25at 09:41; Start 08/29/25 at 09:30; Stop 08/29/25 at 10:29; Status DC Dextrose 50 ml ONCE ONCE IV; Start 08/29/25 at 09:30; Stop 08/29/25 at 09:27; Status DC Insulin Human Regular 5 unit ONCE ONCE IV Last administered on 08/29/25at 09:57; Start 08/29/25 at 09:30; Stop 08/29/25 at 09:31; Status DC Albuterol Sulfate 10 mg ONCE ONCE IH Last administered on 08/29/25at 09:37; Start 08/29/25 at 09:30; Stop 08/29/25 at 09:31; Status DC Lactulose 200 gm ONCE ONCE NE; Start 08/29/25 at 09:30; Stop 08/29/25 at 09:36; Status DC Calcium Gluconate 1 gm ONCE IV; Start 08/29/25 at 09:30; Stop 08/29/25 at 09:23; Status DC Sodium Chloride 1,000 ml @ 125 mls/hr Q8H IV; Start 08/29/25 at 09:30; Stop 08/29/25 at 09:57; Status DC Insulin Human Regular 5 unit ONCE IV; Start 08/29/25 at 09:30; Stop 08/29/25 at 09:25; Status DC Dextrose 50 ml ONCE ONCE IV Last administered on 08/29/25at 09:47; Start 08/29/25 at 09:30; Stop 08/29/25 at 09:31; Status DC Sodium Bicarbonate 50 meq ONCE ONCE IV Last administered on 08/29/25at 09:47; Start 08/29/25 at 09:30; Stop 08/29/25 at 09:31; Status DC Pharmacy Profile Note 1 each ONCE MISC; Start 08/29/25 at 09:30; Stop 08/29/25 at 09:35; Status DC Ondansetron HCl 4 mg Q6H PRN IVP Last administered on 09/03/25at 04:33; Start 08/29/25 at 09:30; Stop 09/28/25 at 09:29 Thiamine HCl 200 mg Q12H IVP Last administered on 09/02/25at 08:56; Start 08/29/25 at 09:30; Stop 09/02/25 at 09:30; Status DC Meropenem 500 mg Q24H IVPB Last administered on 08/30/25at 09:46; Start 08/29/25 at 10:00; Stop 08/31/25 at 09:59; Status DC Sodium Chloride 1,000 ml @ 0 mls/hr ONCE ONCE IV Last administered on 08/29/25at 09:47; Start 08/29/25 at 10:00; Stop 08/29/25 at 10:01; Status DC Dextrose 50 ml AD PRN IV; Start 08/29/25 at 10:00; Stop 09/28/25 at 09:59 Glucagon 1 mg AD PRN IM; Start 08/29/25 at 10:00; Stop 09/28/25 at 09:59 Acetaminophen 650 mg Q6H PRN PO; Start 08/29/25 at 10:00; Stop 09/28/25 at 09:59 Albuterol 1 udvial Q6H PRN IH; Start 08/29/25 at 10:00; Stop 09/28/25 at 09:59 Sodium Bicarbonate 50 meq ONCE ONCE IV Last administered on 08/29/25at 10:12; Start 08/29/25 at 10:00; Stop 08/29/25 at 10:05; Status DC Sodium Bicarbonate 150 meq/Dextrose 1,150 ml @ 125 mls/hr Q9H12M IVP Last administered on 08/30/25at 08:07; Start 08/29/25 at 10:00; Stop 08/30/25 at 10:12; Status DC Insulin Human Regular INSULIN SLIDING SCAL... ACHS SQ Last administered on 09/05/25at 12:31; Start 08/29/25 at 11:30; Stop 09/28/25 at 11:29 Sodium Chloride 1,000 ml @ 0 mls/hr ONCE ONCE IV Last administered on 08/29/25at 13:44; Start 08/29/25 at 11:00; Stop 08/29/25 at 11:06; Status DC Sodium Chloride 1,000 ml @ 200 mls/hr PROTOCOL IV; Start 08/29/25 at 12:30; Stop 08/29/25 at 16:05; Status DC Magnesium Sulfate 50 ml @ 0 mls/hr PROTOCOL IV; Start 08/29/25 at 12:30; Stop 08/29/25 at 16:05; Status DC Insulin Human Regular 100 unit/ Sodium Chloride 101 ml @ 0 mls/hr PROTOCOL IV; Start 08/29/25 at 12:30; Stop 08/29/25 at 16:05; Status DC Dextrose/Sodium Chloride 1,000 ml @ 0 mls/hr AD IV; Start 08/29/25 at 12:30; Stop 08/29/25 at 16:05; Status DC Potassium Chloride 100 ml @ 50 mls/hr AD PRN IV Last administered on 09/02/25at 06:26; Start 08/29/25 at 12:30; Stop 09/28/25 at 12:29 Lidocaine HCl 20 ml STK-MED ONCE .ROUTE; Start 08/29/25 at 14:24; Stop 08/29/25 at 14:25; Status DC Lidocaine HCl 20 ml STK-MED ONCE .ROUTE Last administered on 08/29/25at 15:59; Start 08/29/25 at 14:25; Stop 08/29/25 at 14:25; Status DC Sodium Chloride 1,000 ml @ 0 mls/hr Q0M IV; Start 08/29/25 at 16:00; Stop 08/29/25 at 16:03; Status DC Sodium Chloride 1,000 ml @ 0 mls/hr Q0M IV Last administered on 08/29/25at 16:10; Start 08/29/25 at 16:00; Stop 09/01/25 at 08:01; Status DC Sodium Chloride 250 ml @ 0 mls/hr AD IV; Start 08/29/25 at 17:30; Stop 09/28/25 at 17:29 Sodium Chloride 1,000 ml @ 0 mls/hr ONCE ONCE IV Last administered on 08/29/25at 19:57; Start 08/29/25 at 17:30; Stop 08/29/25 at 17:35; Status DC Sodium Chloride 1,000 ml @ 150 mls/hr Q6H40M IV Last administered on 08/31/25at 16:16; Start 08/29/25 at 18:30; Stop 09/01/25 at 09:29; Status DC Dexmedetomidine/ Sodium Chloride 400 mcg STK-MED ONCE IV; Start 08/29/25 at 19:56; Stop 08/29/25 at 19:56; Status DC Norepinephrine Bitartrate 32 mg/ Sodium Chloride 250 ml @ 0 mls/hr Q0M STAT IV Last administered on 08/29/25at 21:13; Start 08/29/25 at 21:01; Stop 08/29/25 at 21:07; Status DC Magnesium Sulfate 50 ml @ 0 mls/hr PROTOCOL IV Last administered on 09/06/25at 11:39; Start 08/30/25 at 10:00; Stop 09/29/25 at 09:59 Morphine Sulfate 2 mg ONCE ONCE IVP Last administered on 08/31/25at 02:24; Start 08/31/25 at 02:30; Stop 08/31/25 at 02:31; Status DC Potassium Phosphate 250 ml @ 42 mls/hr PROTOCOL ONCE IV Last administered on 08/31/25at 10:11; Start 08/31/25 at 09:00; Stop 08/31/25 at 14:57; Status DC Multivitamins/ Minerals 10 ml/ Chromium/Copper/ Manganese/Zinc 3 ml/Amino Acids/ Electrolytes/ Dextrose 2,000 ml @ 83 mls/hr ONCE ONCE IV Last administered on 08/31/25at 20:53; Start 08/31/25 at 20:00; Stop 09/01/25 at 11:25; Status DC Midodrine 10 mg BID PO; Start 09/01/25 at 09:00; Stop 08/31/25 at 18:36; Status DC Midodrine 10 mg ONCE ONCE PO Last administered on 08/31/25at 18:36; Start 08/31/25 at 18:30; Stop 08/31/25 at 18:31; Status DC Midodrine 10 mg TID PO Last administered on 09/06/25at 14:28; Start 09/01/25 at 09:00; Stop 10/01/25 at 08:59 Pharmacy Profile Note 1 each ONCE MISC; Start 08/31/25 at 23:30; Stop 08/31/25 at 23:17; Status DC Meropenem 500 mg Q24H IVPB Last administered on 09/05/25at 23:23; Start 08/31/25 at 23:30; Stop 09/10/25 at 23:29 Morphine Sulfate 2 mg Q4H PRN IVP Last administered on 09/05/25at 04:28; Start 09/01/25 at 05:30; Stop 09/05/25 at 13:19; Status DC Propofol 200 mg STK-MED ONCE IV; Start 09/01/25 at 09:53; Stop 09/01/25 at 09:53; Status DC Ketamine HCl 50 mg STK-MED ONCE .ROUTE; Start 09/01/25 at 09:53; Stop 09/01/25 at 09:53; Status DC Pantoprazole Sodium 40 mg BID IVP Last administered on 09/03/25at 09:16; Start 09/01/25 at 21:00; Stop 09/03/25 at 14:32; Status DC Lactulose 20 gm TID PO Last administered on 09/05/25at 08:06; Start 09/01/25 at 14:00; Stop 09/05/25 at 10:44; Status DC Multivitamins/ Minerals 10 ml/ Amino Acids/ Electrolytes/ Dextrose 2,000 ml @ 83 mls/hr ONCE ONCE IV Last administered on 09/01/25at 22:13; Start 09/01/25 at 20:00; Stop 09/02/25 at 20:05; Status DC Magnesium Sulfate 50 ml @ 0 mls/hr PROTOCOL IV; Start 09/02/25 at 13:30; Stop 09/02/25 at 13:04; Status DC Magnesium Sulfate 50 ml @ 0 mls/hr PROTOCOL IV; Start 09/03/25 at 08:00; Stop 09/03/25 at 07:43; Status DC Pantoprazole Sodium 40 mg DAILY PO Last administered on 09/05/25at 08:06; Start 09/04/25 at 09:00; Stop 09/06/25 at 00:03; Status DC Duloxetine HCl 30 mg BID PO Last administered on 09/05/25at 21:31; Start 09/03/25 at 21:00; Stop 10/03/25 at 20:59 Psyllium Hydrophilic Mucilloid 1 tbs TID PO Last administered on 09/06/25at 14:28; Start 09/04/25 at 14:00; Stop 10/04/25 at 13:59 Cyclobenzaprine HCl 5 mg TID PRN PO; Start 09/05/25 at 11:00; Stop 10/05/25 at 10:59 Home Med (Medroxyprogesterone Acetate (Provera) 1 TAB) DAILY PO; Start 09/06/25 at 09:00; Stop 10/06/25 at 08:59 Atorvastatin Calcium 5 mg HS PO Last administered on 09/05/25at 21:31; Start 09/05/25 at 21:00; Stop 10/05/25 at 20:59 Lactulose 20 gm BID PO Last administered on 09/05/25at 21:30; Start 09/05/25 at 21:00; Stop 10/01/25 at 13:59 Morphine Sulfate 1 mg Q4H PRN IVP Last administered on 09/06/25at 02:04; Start 09/05/25 at 13:30; Stop 09/12/25 at 13:29 Lactated Ringer's 1,000 ml @ 100 mls/hr Q10H IV Last administered on 09/06/25at 08:35; Start 09/06/25 at 00:00; Stop 10/06/25 at 00:00 Pantoprazole Sodium 40 mg BID IVP Last administered on 09/06/25at 08:38; Start 09/06/25 at 09:00; Stop 10/06/25 at 08:59 Enoxaparin Sodium 1 unit Q12H SQ; Start 09/06/25 at 13:30; Stop 09/06/25 at 13:21; Status DC Enoxaparin Sodium 60 mg Q12H SQ Last administered on 09/06/25at 14:49; Start 09/06/25 at 13:30; Stop 10/06/25 at 13:29 BENEDICTO OBRIEN Jr. PAC Sep 06, 2025 16:30
--- NOTE | 2025-09-06 16:43 | CONS ---
CONSULT REFERRING PHYSICIAN: DR AYAKA BARR REASON FOR CONSULT: UPPER EXTREMITY DVT HISTORY HPI: 50-year-old female with underlying history of type 2 diabetes mellitus, history of liver cirrhosis, prior history of esophageal varices requiring banding in May,, history of robotic sigmoid resection with takedown of colovesical fistula who was recently hospitalized in [facility] from 07/20/2025 - 08/25/2025 patient was found to have bilious peritonitis with 2 mm perforation of colonic anastomosis requiring diagnostic laparoscopy, abdominal washout and drain placement with creation of diverting loop ileostomy. Patient was hospitalized for about one month and subsequently required IR guided drain placement as well. She was just discharged from the hospital on 08/25/2025. Patient's daughter reports that patient was having nausea and vomiting with poor oral intake at home. She started to have coffee-ground emesis today and she also noticed some right streaks of blood with a coffee-ground emesis. Stool has also been dark in the ileostomy bag. Patient is having moderate intensity abdominal pain as well. She has not been taking any NSAIDs. Daughter reports that patient has been very weak since her discharge in very debilitated. Patient denies active chest pain. Denies active shortness of breath. 09/06/25 Patient was seen and evaluated at bedside. She is currently doing well, denies any nausea or abdominal pain or vomiting. As per the nurse, she had bright red blood in her ileostomy bag last night but it was clear this morning. Venous Doppler of RUE revealed DVT in right axillary vein and thrombosis of rt cephalic vein and we were consulted for the same. PMH: Diabetes mellitius type 2, liver cirrhosis, esophageal varices, Recent history of hospitalization in [facility] for acute cholecystitis requiring cholecystostomy tube placement, perisplenic abscess status post CT-guided drainage on 08/09/2025, EGD with findings of acute gastritis, septic shock, peritonitis with ESBL E coli infection] PSH: Right knee surgery, on 07/09/2025 repair of colo vesicular fistula with sigmoid colon resection and anastomosis, 07/21/2025: Bilious peritonitis w/ 2 mm perforation of the colonic anastomosis s/p Diagnostic laparoscopy, abdominal washout, drain placement and diverting loop ileostomy creation by Dr. Gann, During hospitalization in [facility] from 07/20/2025-08/25/2025, patient underwent multiple procedures including cholecystostomy tube placement, perisplenic and infra- splenic fluid collection with IR guided drainage catheter placement on 08/09/2025 SH: Negative for smoking, alcohol use, drug use. Patient lives with the daughter. Since discharge from the hospital, patient has been very weak and debilitated ALLERGIES: Coded Allergies: aspirin (Unverified Allergy, Unknown, 07/02/25) bismuth subsalicylate (Unverified Allergy, Unknown, 07/02/25) pork derived (porcine) (Unverified Allergy, Unknown, 07/02/25) Uncoded Allergies: BISMUTH (Allergy, Unknown, 07/02/25) CURRENT MEDS: Current Medications Medications (Trade) Dose Ordered Sig/Gregory Route PRN Reason Start Time Stop Time Status Last Admin Home Med (Home Medication) (Medroxyprogesterone Acetate (Provera) 1 TAB) DAILY PO 09/06/25 09:00 10/06/25 08:59 Atorvastatin Calcium (LIPItor 10MG) 5 mg HS PO 09/05/25 21:00 10/05/25 20:59 09/05/25 21:31 Lactulose (Constulose 20gm/ 30ml Udcup) 20 gm BID PO 09/05/25 21:00 10/01/25 13:59 09/05/25 21:30 Lactated Ringer's 1,000 ml @ 100 mls/hr Q10H IV 09/06/25 00:00 10/06/25 00:00 09/06/25 08:35 Pantoprazole Sodium (PROTonix 40MG INJ) 40 mg BID IVP 09/06/25 09:00 10/06/25 08:59 09/06/25 08:38 Enoxaparin Sodium (Lovenox 60mg) 60 mg Q12H SQ 09/06/25 13:30 10/06/25 13:29 09/06/25 14:49 REVIEW OF SYSTEMS CONSTITUTIONAL: No FEVER, No SWEATS, No CHILLS, No WEIGHT LOSS HEENT: No JAUNDICE, No SORE THROAT, No SINUS PRESSURE, No VISION CHANGES RESPIRATORY: No COUGH, No CHEST PAIN, No SHORTNESS OF BREATH, No HEMOPTYSIS CARDIOVASCULAR: No PALPATIONS, No DYSPNEA ON EXERTION, No SYNCOPE GASTROINTESTINAL: No NAUSEA, No VOMITING, No DIARRHEA, No DYSPHAGIA, No CONSTIPATION, No ABDOMINAL PAIN; HEMATEMESIS; No HEMATOCHEZIA, No MELENA GENITOURINARY: No DYSURIA, No HEMATURIA HEMATOLOGIC/LYMPHATIC: No EASY BRUISING, No CERVICAL ADENOPATHY, No AXILLARY ADENOPATHY, No INGUINAL ADENOPATHY PHYSICAL EXAM VITALS: Vital Signs Date Time Temp Pulse Resp B/P (MAP) Pulse Ox O2 Delivery O2 Flow Rate FiO2 09/06/25 12:00 98.1 81 18 106/56 94 Room Air 09/06/25 10:54 0 21 GENERAL: ALERT, ORIENTED, APPEARS-NO ACUTE DISTRESS RESPIRATORY: LUNGS CLEAR-AUSC/PERCUS CARDIOVASCULAR: REGULAR RATE, REGULAR RHYTHM GASTROINTESTINAL: ABDOMEN IS SOFT; No TENDER, No DISTENDED, No HEPATOSPLENOMEGALY; BOWEL SOUNDS PRESENT; No PALPABLE MASSES HEMATOLOGY/LYMPHATIC: No CERVICAL ADENOPATHY, No SUPRACLAVICULR ADENOPATHY, No AXILLARY ADENOPATHY, No INGUINAL ADENOPATHY DIAGNOSTIC STUDIES PATIENT: DALLAS BUCHANAN MR#: [id number] : 1970 SEX: F AGE: 55 LOCATION: [facility] ORDER [id number] STATUS: ADM IN REPORT#: [id number] SERVICE [id number] REASON: R/o DVT versus SVT ORDERING PHYSICIAN: SONJA PERALTA MD PROCEDURE: VENOUS UNI - US VENOUS DOPPLER UNILATERAL ADDENDUM REPORT ADDENDUM: Results were shared by telephone at 10:59am on 09-06-25 and acknowledged by Patients Nurse Ms. Britt Robert /[place] EXAMINATION: SPECTRAL DOPPLER ULTRASOUND EXAMINATION OF THE RIGHT UPPER EXTREMITY VEINS. CLINICAL HISTORY: To rule out DVT. COMPARISON: None. TECHNIQUE: Grayscale, color, and spectral Doppler images of the right upper extremity veins are submitted. FINDINGS: The internal jugular, subclavian, basilic, and brachial veins are patent. These veins show normal flow with physiological changes of phasicity and augmentation. The right axillary vein and cephalic veins are non-compressible and there is no flow on augmentation. IMPRESSION: Acute deep vein thrombosis in the right axillary vein. Right cephalic vein thrombosis. There is no deep vein thrombosis in the remainder of the right upper extmreiyt, /[place]annon DICTATED BY: TOBI LEAHY MD DATE: 09/06/251154 ELECTRONICALLY SIGNED BY: DATE: EXAMINATION: SPECTRAL DOPPLER ULTRASOUND EXAMINATION OF THE RIGHT UPPER EXTREMITY VEINS. CLINICAL HISTORY: To rule out DVT. COMPARISON: None. TECHNIQUE: Grayscale, color, and spectral Doppler images of the right upper extremity veins are submitted. FINDINGS: The internal jugular, subclavian, basilic, and brachial veins are patent. These veins show normal flow with physiological changes of phasicity and augmentation. The right axillary vein and cephalic veins are non-compressible and there is no flow on augmentation. IMPRESSION: Acute deep vein thrombosis in the right axillary vein. Right cephalic vein thrombosis. There is no deep vein thrombosis in the remainder of the right upper extmreiyt, /Shannon DICTATED BY: TOBI LEAHY MD DATE: 09/06/25941 ELECTRONICALLY SIGNED BY: TOBI LEAHY MD DATE: 09/06/25941 IMPRESSION 1. Acute DVT of Right axillary vein 2. Iron Deficiency Anemia 3. Acute upper GI bleed, resolved 4. Liver cirrhosis 5. Prerenal CYNTHIA, resolved PLAN 1. Patient to be started on therapeutic dose of Lovenox 1mg/kg body wt q12 and recheck H&H in the morning and if stable can be transitioned to PO anticoagulation. 2.Peripheral blood smear shows microcytic hypochromic anemia consistent with iron deficiency anemia . There is no teardrop cell, pelger huet cell or rouleaux formation Cytoplasmic vacuolation seen in neutrophils. Platelet morphology and count within normal limits . 3. There is hypersegmented neutrophil. This patient will benefit from Folic acid 1 mg daily and Vitamin B12 1000 mcg daily LINDA SUNSHINE MD Sep 06, 2025 16:43
--- NOTE | 2025-09-06 21:33 | PN ---
FOLLOWUP PROGRESS NOTE SUBJECTIVE: A 55-year-old female who has had a prolonged hospital course. The patient was initially admitted with acute renal failure. She did require 1 course of dialysis. The patient's renal function is much improved. The patient does have previous ileostomy. The patient is developing melena and is being seen by surgical service. The patient is being seen as a followup visit for all of the above. REVIEW OF SYSTEMS: GENERAL: She is feeling weak and tired. HEENT: No change in vision. No change in hearing. CARDIOVASCULAR: There is no current chest pain or palpitations. PULMONARY: No shortness of breath. GASTROINTESTINAL: As described above. MUSCULOSKELETAL: Complains of weakness. PHYSICAL EXAMINATION: VITAL SIGNS: Blood pressure 112/62, pulse in the 80s. GENERAL: Chronically ill female, lying in bed on the medical floor. HEENT: Head is atraumatic. Pupils equal, round, and reactive to light. Oropharynx is without exudate. Nares clear. NECK: There is no JVP. No thyromegaly. CARDIOVASCULAR: Regular. There is no S3 or S4 gallop. LUNGS: Coarse with equal thoracic movement. ABDOMEN: Soft, nondistended, and nontender. EXTREMITIES: There is no clubbing or cyanosis. NEUROLOGICAL: She is awake. She is alert. LABORATORY DATA: Sodium 133, BUN 10, creatinine 0.6. Hemoglobin 9.5, hematocrit 29. IMPRESSION: * Acute renal failure. * Gastrointestinal bleeding. * Diabetes mellitus. * Hypertension. PLAN: The patient's renal function has greatly improved. The patient has no further need for dialysis. The patient's electrolytes have all been aggressively repleted. The patient now with melena and the patient is being seen by Surgical Service. All labs were repeated in the morning. TID: [id number] RECEIPT: [id number]
--- NOTE | 2025-09-06 23:22 | PN ---
INFECTIOUS DISEASE PROGRESS NOTE Date of Service: Sep 06, 2025 SUBJECTIVE: Patient is awake, alert and oriented x3. The left Perisplenic drainage catheter is draining moderate amount of serous sanguineous drainage. Patient with right arm swelling of the, a venous Doppler was obtained and patient has acute DVT in the right axilla vein and thrombus in the right cephalic vein thrombus. We will continue on Meropenem. PHYSICAL EXAM EYES: Anicteric. Pupils equal and reactive. HENT: No oral thrush seen, moist Oral mucosa. NECK: Supple, no JVD or thyromegaly. LUNGS: Good air entry. No rales, no rhonchi. CARDIOVASCULAR: S1, S2 regular. No murmur heard. ABDOMEN: Soft, non tender, bowel sounds present. Right ileostomy. Left Perisplenic abscess percutaneous drainage catheter. CENTRAL NERVOUS SYSTEM: Awake, alert, oriented x 3. SKIN: No rashes, no swelling. LYMPHATICS: No peripheral lymphadenopathy. MUSCULOSKELETAL: No joint swelling, erythema or tenderness. EXTREMITIES: No cyanosis or clubbing. BACK: No deformity, no pressure ulcer. GENITOURINARY: No dysuria or hematuria. Dueñas catheter. Vital Sign (Last 12 Hours) 09/06/25 09/06/25 09/06/25 09/06/25 12:00 16:00 20:00 20:32 Temp 98.1 98.1 98.2 Pulse 81 86 87 Resp 18 18 16 B/P (MAP) 106/56 107/66 117/68 Pulse Ox 94 92 98 O2 Delivery Room Air Room Air Room Air Room Air* O2 Flow Rate 0 FiO2 21 Intake & Output (last 24hrs) 09/05/25 09/05/25 09/06/25 15:00 23:00 07:00 Output Total 300 ml Balance -300 ml LABS: Laboratory: Test 09/06/25 19:41 09/06/25 04:23 09/06/25 00:46 09/05/25 00:03 Range/Units Whole Blood Glucose 145 H 70-110 MG/DL White Blood Count 4.6 L 4.8-10.8 K/uL Red Blood Count 3.13 L 4.00-5.50 MIL/uL Hemoglobin 9.5 L 12.0-16.0 g/dL Hematocrit 29.3 L 36-48 % Mean Corpuscular Volume 93.6 79-99 fL Mean Corpuscular Hemoglobin 30.4 27.0-33.0 pg Mean Corpuscular Hemoglobin Concent 32.4 32.0-36.0 g/dL Red Cell Distribution Width 17.8 H 11.0-15.5 % Platelet Count 115 L 130-400 K/uL Mean Platelet Volume 10.6 H 7.5-10.5 fL Nucleated Red Blood Cells 0.0 0.0-0.19 % Sodium Level 133 L 136-145 mmol/L Potassium Level 4.1 3.5-5.1 mmol/L Chloride Level 107 101-111 mmol/L Carbon Dioxide Level 17 L 21-32 mmol/L Blood Urea Nitrogen 10 7-18 mg/dL Creatinine 0.6 0.5-1.0 mg/dL Glomerular Filtration Rate Calc 105 >90 mL/min Random Glucose 133 #H 70-105 mg/dL Total Calcium 8.0 L 8.5-10.1 mg/dL Magnesium Level 1.40 L 1.80-2.40 mg/dL Stool Occult Blood POSITIVE H NEGATIVE Immature Granulocyte % (Auto) 0.6 0-1 % Neutrophils (%) (Auto) 63.1 40.0-77.0 % Lymphocytes (%) (Auto) 22.8 21.0-51.0 % Monocytes (%) (Auto) 7.9 3.0-13.0 % Eosinophils (%) (Auto) 5.0 0.0-8.0 % Basophils (%) (Auto) 0.6 0.0-5.0 % Neutrophils # (Auto) 3.0 1.8-7.7 K/uL Lymphocytes # (Auto) 1.1 1.0-4.8 K/uL Monocytes # (Auto) 0.4 0.1-1.0 K/uL Eosinophils # (Auto) 0.24 0.00-0.70 K/uL Basophils # (Auto) 0.03 0.00-0.20 K/uL Absolute Immature Granulocyte (auto 0.03 0-1 K/uL Red Blood Cell Morphology See comments Total Bilirubin 0.5 0.2-1.0 mg/dL Direct Bilirubin 0.2 0.0-0.3 mg/dL Aspartate Amino Transf (AST/SGOT) 46 H 10-37 U/L Alanine Aminotransferase (ALT/SGPT) 20 12-78 U/L Alkaline Phosphatase 139 H 50-136 U/L Total Protein 6.6 6.0-8.3 g/dL Albumin 2.2 L 3.5-5.0 g/dL ASSESSMENT: Acute hypoxic respiratory failure requiring oxygen support, resolved. Sepsis, resolved. Gastrointestinal bleeding, status post EGD. Acute renal failure requiring dialysis, resolved. Dehydration, resolving. Hypokalemia, resolved. Anemia. Thrombocytopenia. Diabetes mellitus. Cholecystostomy tube placement on 08/02/2025 due to acute cholecystitis, s/p removal on 09/01/2025. Perisplenic abscess with a recent CT-guided drainage placement on 08/09/2025. Recent laparoscopy, abdominal washout, ileostomy creation on 07/21/2025. PLAN: Continue Meropenem. Continue antidiabetics. Monitor for bleeding. Continue IV fluids. Continue Protonix. Continue pain management. Continue percutaneous drain care. We will sign off at this time. Reconsult if needed. This case was reviewed and discussed with my supervising physician Dr. Tripathi and the above assessment and plan was formulated and agreed upon. ATTESTATION BY PHYSICIAN I have seen and examined the patient. I reviewed the documentation, medical decision making, and treatment plan as noted by the mid-level provider above. I agree with the findings and plan of care. AMIE TRIPATHI MD, MIRTA L [facility] Sep 06, 2025 23:22
[2025-09-07] VITALS: BP 127/60; PULSE 79; RESP 28; TEMP 98.6
[2025-09-07 04:00] VITALS: BP 146/67; PULSE 75; RESP 20; TEMP 98.5
[2025-09-07 08:00] VITALS: BP 123/64; PULSE 72; RESP 18; TEMP 98.4; O2SAT 97
[2025-09-07 08:12] LABS: NUCLEATED RED BLOOD CELLS 0.0 % (0.0-0.19); PLATELET COUNT (AUTO) 140.0 K/uL (130-400); RED BLOOD CELL COUNT(AUTO) 3.03 MIL/uL (4.00-5.50); RED CELL DISTRIBUTION WIDTH 17.9 % (11.0-15.5); WHITE BLOOD COUNT (AUTO) 4.2 K/uL (4.8-10.8)
[2025-09-07 08:18] LABS: CREATININE 0.6 mg/dL (0.5-1.0); GLOMERULAR FILTR. RATE CALC 105.0 mL/min (>90); GLUCOSE,RANDOM 88.0 mg/dL (70-105); SODIUM SERUM 136.0 mmol/L (136-145); UREA NITROGEN, BLOOD 9.0 mg/dL (7-18)
--- NOTE | 2025-09-07 11:30 | NUR ---
ILEOSTOMY STATUS BLOOD NOTED IN ILEOSTOMY BAG. BROWN FORMED STOOL NOTED. MD AWARE WILL CONTACT DR. GOYAL IN REGARDS TO NEW ADMINISTRATION OF LOVENOX.
[2025-09-07 12:00] VITALS: BP 128/69; PULSE 74; RESP 18; TEMP 98.2
--- NOTE | 2025-09-07 12:39 | PN ---
[facility] PROGRESS NOTE Date of Service: Sep 07, 2025 Time of Service: 12:39 SUBJECTIVE: As per admission notes "50-year-old female with underlying history of type 2 diabetes mellitus, history of liver cirrhosis, prior history of esophageal varices requiring banding in May,, history of robotic sigmoid resection with takedown of colovesical fistula who was recently hospitalized in [facility] from 07/20/2025 - 08/25/2025 patient was found to have bilious peritonitis with 2 mm perforation of colonic anastomosis requiring diagnostic laparoscopy, abdominal washout and drain placement with creation of diverting loop ileostomy. Patient was hospitalized for about one month and subsequently required IR guided drain placement as well. She was just discharged from the hospital on 08/25/2025. Patient's daughter reports that patient was having nausea and vomiting with poor oral intake at home. She started to have coffee-ground emesis today and she also noticed some right streaks of blood with a coffee-ground emesis. Stool has also been dark in the ileostomy bag. Patient is having moderate intensity abdominal pain as well. She has not been taking any NSAIDs. Daughter reports that patient has been very weak since her discharge in very debilitated. Patient denies active chest pain. Denies active shortness of breath. On presentation to the hospital, patient was noted to be afebrile with T-max of 97.5 F, heart rate of 100, blood pressure of 127/91. [place] [address], hemoglobin of 16.4, platelet count of 502560. BMP was repeated twice, BMP showed sodium of 117, potassium 7.0, chloride of 88, CO2 of seven, BUN of 83, creatinine 5.0, blood glucose of 99, calcium 10.4. Blood gas showed pH of 7.28, bicarb of close to eight, CO2 of 18, lactic acid of three. Patient will be admitted to ICU. Patient is presenting with severe renal failure with hyperkalemia and severe metabolic acidosis. Patient also with concerns for upper GI bleeding with coffee-ground emesis. Patient remains critically ill consultation with Intensive Care, Nephrology, GI will be requested. We we will obtain a CT abdomen pelvis without contrast for further evaluation as well. Patient is critically ill. Plan of care was discussed with patient and daughter at bedside" 08/30/2025 Patient was seen and examined at bedside. Her blood pressure has been low, 88/54, heart rate 86. She is currently on Levophed 0.2 Mcg, octreotide, Protonix, sodium bicarbonate drip. She received 2nd hemodialysis session yesterday. As per Nephrology, she will continue to receive dialysis inpatient. Her high anion gap metabolic acidosis is improving with sodium 134, carbon dioxide 31, chloride 96. Her creatinine has trended down from 5-1.8. General surgery consult is on board and we will follow up with their recommendations. Additionally, in the light of history of liver cirrhosis with esophageal varices, her recent hematemesis will be evaluated with GI consult and possible endoscopy. We discussed this with the patient and her family members present besides. Patient is started on Merrem and blood culture, urine cultures show no growth so far. Her lactic acid has trended down from 3.1 to 2.1. 08/31/2025 Patient was seen and examined at bedside in room 214. She continues to be on Levophed 0.1 which is being weaned off. She is also on Sandostatin and Protonix drip. Patient complained of mild pain along the sides of her drain but denied any nausea or episode of vomiting since Saturday. Minimal drainage was noted. Sodium bicarb was discontinued as per Nephrology. Her lab markers have improved with sodium 141, chloride 104, bicarb 32, creatinine 1, BUN 16, ammonia 34. Her urine sodium was less than 20 consistent with prerenal CYNTHIA. We are pending blood and urine culture results. Her total output in the past24 hours has been optimal, 2069. She is on sodium chloride 150 mL/hour. We are following gastroenterology recommendations of possible upper endoscopy in the morning if patient condition remains stable. 09/01/2025 Patient was seen and examined at bedside. She is off vasopressor support and is hemodynamically stable. Her chest x-ray showed opacity in the left lower lobe and we will follow up with CT scan of chest. She is started on 2nd day of ppm today. She successfully underwent EGD which showed small, less than 5 mm, esophageal varices with scar in the lower 3rd of the esophagus. Patient was noted to have portal hypertensive gastropathy which was biopsied. Duodenum was normal during examination. Patient is receiving Merrem and her blood culture and urine cultures have shown no growth so far. Due to her elevated ammonia levels, she will be started on lactulose. We will proceed with caution with respect to normal saline as patient's BNP is elevated. 09/02/2025 The patient has been seen and examined earlier this morning during my rounding, case discussed with the RN, no acute events overnight, blood pressure 118/71, h eart rate of 56, afebrile, saturating normal on room air, CBC showing hemoglobin 8.5, hematocrit 36.8, WBC of 4.4, platelet count of 99, sodium 137, potassium 3.8, BUN of 18, creatinine 0.7, magnesium Lasix. Results of blood culture no growth after four days. Urine culture no growth. EGD reviewed, small less than 5 mm esophageal varices with scar in the lower 3rd of the esophagus. Patient with a bottle hypertensive gastropathy, status post biopsy, duodenum was normal during examination. Patient to be downgraded to the medical floor, continue banana bag, continue Protonix 40 mg IV b.i.d.. Plan for possible PEG tube placement. 09/03/2025 Patient was seen and examined at bedside. She has been advanced to GI soft bland diet which she is tolerating really well and having output in her ileostomy bag. As per surgeon, if she continues to tolerate diet, she may not require G-tube placement on discharge. Patient did not complain of any significant pain and seemed to be doing really well. Her cholecystostomy tube was removed but her splenic percutaneous tube is still in position and may require further IR intervention for repositioning due to persistent and mildly increased perisplenic fluid collection. She is receiving lactulose and her ammonia levels have gone down. Her acute renal failure continues to resolve and her vitals are also stable. No growth on urine and blood culture so far. We have shifted her from Protonix IV to p.o. as per GI recommendations. 09/04/2025 Patient was seen and examined at bedside in room 302. She has been tolerating GI soft bland diet, ileostomy output seems very high, liquid consistency and patient will be receiving fiber 3 times a day. Patient may require further IR intervention on Saturday for splenic drain reposition due to persistent and mildly increased perisplenic fluid collection. Vitals are stable, blood and urine culture shows no growth so far. 09/05/2025 Patient was seen and examined at bedside. She is tolerating GI soft bland diet, and her ileostomy output is high although liquid in consistency. We have decreased lactulose to b.i.d. from t.i.d. She continues on fiber 3 times a day as per surgery recommendations to bulk up the stool from the ileostomy in order to decrease the chances of further dehydration from high ileostomy output. Additionally, nodular swelling was appreciated in her right upper extremity which could be concerning for superficial venous thrombosis for which ultrasound Doppler of right upper extremity has been ordered. Patient is currently undergoing bladder training while being catheterized and we will proceed with Dueñas catheter removal as tolerated. 09/06/2025: Patient was seen and examined at bedside in room 302. She is tolerating GI soft bland diet and her ileostomy output has thicker consistency. Nurse reported that there was bright red blood in the ileostomy bag last night however this morning it was free from blood. Venous Doppler of the right upper extremity revealed deep vein thrombosis in right axillary vein and right cephalic vein, advice from Gastroenterology and Hematology was requested to start anticoagulation. Patient was started on Lovenox 1 mg/kg body weight as per Hematology recommendations. Patient will be continued on IV Protonix 40 mg b.i.d. 09/07/2025: Patient was seen and examined at bedside in room 302. Patient complained of generalized body pains however denied specific pain to the right arm or in abdomen. She is tolerating GI soft bland it and had to 25 mL of total output from ileostomy bag last night as per the primary nurse. During my evaluation in the morning there was no blood observed in the ileostomy bag however around 10:30 a.m. nurse reported blood in the ileostomy bag. Dr. Gonzalez recommended to continue Lovenox and bridge with apixaban 10 mg for 5 days and then transition to apixaban 5 mg for 3 months. Surgery recommended to continue current medical management and await management of DVT for potential discharge. However we will try to connect with them regarding removal of splenic drain or repositioning through IR Services. REVIEW OF SYSTEMS CONSTITUTIONAL: malaise, poor oral intake -resolving NEUROLOGICAL: Denies headache, motor weakness, sensory deficit, vertigo/spinning sensation, gait abnormalities, or tremors. ENT: No hearing loss, otalgia, otorrhea, rhinitis, rhinorrhea, hoarseness, or sore throat. CARDIOVASCULAR: Denies any exertional angina, dyspnea on exertion, orthopnea, paroxysmal nocturnal dyspnea, palpitations, life-threatening arrhythmias, claudication. PULMONARY: Denies any shortness of breath, cough, phlegm/sputum, hemoptysis, pleuritic chest pain. SLEEP: Denies morning headaches, daytime somnolence or napping. Denies difficulty falling asleep, staying asleep, waking from sleep. Denies knowledge of snoring. GASTROINTESTINAL: nausea, vomiting, abdominal pain, melena, coffee ground emesis - resolved GENITOURINARY: Urine output was very low - resolving PHYSICAL EXAM GENERAL APPEARANCE: The patient is awake, alert, and oriented, answering to all questions with very mild pain around her drains. NEUROLOGICAL: Cranial nerves II-XII grossly intact. Neurological examination is non focal with spontaneous movement of upper and lower extremities HEENT: Face is symmetric. Pupils are equal and reactive. Extraocular movements are intact. NECK: Supple. No JVD. No thyromegaly. No submental, submandibular, pre- /postauricular, occipital or supraclavicular lymphadenopathy. CHEST: Normal chest expansion. No Telemetry. LUNGS: Absence of any rales, rhonchi or any wheezing. CARDIOVASCULAR: Regular. S1 and S2 normal. No appreciable rubs, murmurs or gallops. ABDOMEN: no rebound noted, there is perisplenic abdominal drain noted with ileostomy bag. : Deferred. Currently catheterized. EXTREMITIES: Swelling in right upper extremity. Mild ecchymosis. Vital Signs (last 8hr) Date Time Temp Pulse Resp B/P (MAP) Pulse Ox O2 Delivery O2 Flow Rate FiO2 09/07/25 12:00 98.2 74 18 128/69 97 Room Air 09/07/25 08:00 98.4 72 18 123/64 97 Room Air LABS: Laboratory: Test 09/07/25 10:50 09/07/25 05:18 09/06/25 00:46 Range/Units Whole Blood Glucose 135 H 70-110 MG/DL White Blood Count 4.2 L 4.8-10.8 K/uL Red Blood Count 3.03 L 4.00-5.50 MIL/uL Hemoglobin 9.4 L 12.0-16.0 g/dL Hematocrit 28.5 L 36-48 % Mean Corpuscular Volume 94.1 79-99 fL Mean Corpuscular Hemoglobin 31.0 27.0-33.0 pg Mean Corpuscular Hemoglobin Concent 33.0 32.0-36.0 g/dL Red Cell Distribution Width 17.9 H 11.0-15.5 % Platelet Count 140 130-400 K/uL Mean Platelet Volume 10.7 H 7.5-10.5 fL Nucleated Red Blood Cells 0.0 0.0-0.19 % Sodium Level 136 136-145 mmol/L Potassium Level 4.1 3.5-5.1 mmol/L Chloride Level 110 101-111 mmol/L Carbon Dioxide Level 18 L 21-32 mmol/L Blood Urea Nitrogen 9 7-18 mg/dL Creatinine 0.6 0.5-1.0 mg/dL Glomerular Filtration Rate Calc 105 >90 mL/min Random Glucose 88 70-105 mg/dL Total Calcium 8.0 L 8.5-10.1 mg/dL Magnesium Level 1.90 1.80-2.40 mg/dL Stool Occult Blood POSITIVE H NEGATIVE Current Medications Medications (Trade) Dose Ordered Sig/Gregory Route PRN Reason Start Time Stop Time Status Last Admin Dose Admin Acetaminophen (TYLenol 325MG TAB) 650 mg Q6H PRN PO MILD PAIN (1-3) 08/29/25 10:00 09/28/25 09:59 Albuterol (DUOneb) 1 udvial Q6H PRN IH SHORTNESS OF BREATH 08/29/25 10:00 09/28/25 09:59 Atorvastatin Calcium (LIPItor 10MG) 5 mg HS PO 09/05/25 21:00 10/05/25 20:59 09/06/25 19:57 5 MG Calcium Gluconate (Calcium Gluc 1gm Vial) 1 gm ONCE IV 08/29/25 09:30 08/29/25 09:23 DC Cyclobenzaprine HCl (Cyclobenzaprine HCl) 5 mg TID PRN PO muscle spasms 09/05/25 11:00 10/05/25 10:59 Dextrose (D50w) 50 ml AD PRN IV HYPOGLYCEMIA PROTOCOL 08/29/25 10:00 09/28/25 09:59 Dextrose/Sodium Chloride 1,000 ml @ 0 mls/hr AD IV 08/29/25 12:30 08/29/25 16:05 DC Duloxetine HCl (CymbALTA 30 mg CAP) 30 mg BID PO 09/03/25 21:00 10/03/25 20:59 09/07/25 09:41 30 MG Enoxaparin Sodium (Lovenox (Pharmacy To Dose)) 1 unit Q12H SQ 09/06/25 13:30 09/06/25 13:21 DC Enoxaparin Sodium (Lovenox 60mg) 60 mg Q12H SQ 09/06/25 13:30 10/06/25 13:29 09/07/25 01:11 60 MG Folic Acid (FOLic ACID 1 MG TABLET) 1 mg DAILY PO 09/08/25 09:00 10/08/25 08:59 Glucagon (Glucagon 1mg Kit) 1 mg AD PRN IM HYPOGLYCEMIA PROTOCOL 08/29/25 10:00 09/28/25 09:59 Home Med (Home Medication) (Medroxyprogesterone Acetate (Provera) 1 TAB) DAILY PO 09/06/25 09:00 10/06/25 08:59 Insulin Human Regular (humuLIN R 100 UNIT/ML 3ML) 5 unit ONCE IV 08/29/25 09:30 08/29/25 09:25 DC Insulin Human Regular (humuLIN R 100 UNIT/ML 3ML) INSULIN SLIDING SCAL... ACHS SQ 08/29/25 11:30 09/28/25 11:29 09/06/25 16:27 3 UNIT Insulin Human Regular 100 unit/ Sodium Chloride 101 ml @ 0 mls/hr PROTOCOL IV 08/29/25 12:30 08/29/25 16:05 DC Lactated Ringer's 1,000 ml @ 100 mls/hr Q10H IV 09/06/25 00:00 09/06/25 18:44 DC 09/06/25 08:35 100 MLS/HR Lactulose (Constulose 20gm/ 30ml Udcup) 20 gm BID PO 09/05/25 21:00 10/01/25 13:59 09/05/25 21:30 20 GM Lactulose (Constulose 20gm/ 30ml Udcup) 20 gm TID PO 09/01/25 14:00 09/05/25 10:44 DC 09/05/25 08:06 20 GM Magnesium Sulfate 50 ml @ 0 mls/hr PROTOCOL IV 08/29/25 12:30 08/29/25 16:05 DC Magnesium Sulfate 50 ml @ 0 mls/hr PROTOCOL IV 08/30/25 10:00 09/29/25 09:59 113/25 11:39 25 MLS/HR Magnesium Sulfate 50 ml @ 0 mls/hr PROTOCOL IV 09/02/25 13:30 09/02/25 13:04 DC Magnesium Sulfate 50 ml @ 0 mls/hr PROTOCOL IV 09/03/25 08:00 09/03/25 07:43 DC Meropenem (Merrem 500mg) 500 mg Q24H IVPB 08/29/25 10:00 08/31/25 09:59 DC 08/30/25 09:46 500 MG Meropenem (Merrem 500mg) 500 mg Q24H IVPB 08/31/25 23:30 09/10/25 23:29 09/06/25 23:19 500 MG Midodrine (PROAMatine 5 MG TABLET) 10 mg BID PO 09/01/25 09:00 08/31/25 18:36 DC Midodrine (PROAMatine 5 MG TABLET) 10 mg TID PO 09/01/25 09:00 10/01/25 08:59 09/07/25 09:42 10 MG Morphine Sulfate (morPHINE 2MG SYG) 0.5 mg Q4H PRN IVP SEVERE PAIN (7-10) 09/07/25 13:30 09/14/25 13:29 Morphine Sulfate (morPHINE 2MG SYG) 1 mg Q4H PRN IVP SEVERE PAIN (7-10) 09/05/25 13:30 09/07/25 11:35 DC 09/06/25 23:40 1 MG Morphine Sulfate (morPHINE 2MG SYG) 2 mg Q4H PRN IVP SEVERE PAIN (7-10) 09/01/25 05:30 09/05/25 13:19 DC 09/05/25 04:28 2 MG Norepinephrine Bitartrate 32 mg/ Sodium Chloride 250 ml @ 0 mls/hr Q0M STAT IV 08/29/25 21:01 08/29/25 21:07 DC 08/29/25 21:13 0 MLS/HR Octreotide Acetate 1250 mcg/ Sodium Chloride 250 ml @ 0 mls/hr PROTOCOL IV 08/29/25 08:30 09/01/25 10:32 DC 08/31/25 10:18 5 MLS/HR Ondansetron HCl (zoFRAN 4MG INJ) 4 mg Q6H PRN IVP NAUSEA/VOMITING 08/29/25 09:30 09/28/25 09:29 09/03/25 04:33 4 MG Pantoprazole Sodium (PROTonix 40MG INJ) 40 mg BID IVP 09/01/25 21:00 09/03/25 14:32 DC 09/03/25 09:16 40 MG Pantoprazole Sodium (PROTonix 40MG INJ) 40 mg BID IVP 09/06/25 09:00 10/06/25 08:59 09/07/25 09:42 40 MG Pantoprazole Sodium (PROTonix 40MG TAB) 40 mg DAILY PO 09/04/25 09:00 09/06/25 00:03 DC 09/05/25 08:06 40 MG Pantoprazole Sodium 80 mg/ Sodium Chloride 100 ml @ 10 mls/hr Q10H IV 08/29/25 08:30 09/01/25 10:32 DC 09/01/25 05:50 10 MLS/HR Pharmacy Profile Note (Pharmacy Communication) 1 each ONCE MISC 08/29/25 09:30 08/29/25 09:35 DC Pharmacy Profile Note (Pharmacy Communication) 1 each ONCE MISC 08/31/25 23:30 08/31/25 23:17 DC Potassium Chloride 100 ml @ 50 mls/hr AD PRN IV POTASSIUM PROTOCOL 08/29/25 12:30 09/28/25 12:29 09/02/25 06:26 50 MLS/HR Psyllium Hydrophilic Mucilloid (Metamucil) 1 tbs TID PO 09/04/25 14:00 10/04/25 13:59 09/07/25 09:42 1 TBS Sodium Bicarbonate 150 meq/Dextrose 1,150 ml @ 125 mls/hr Q9H12M IVP 08/29/25 10:00 08/30/25 10:12 DC 08/30/25 08:07 125 MLS/HR Sodium Bicarbonate (Sodium Bicarbonate) 1,300 mg TID PO 09/07/25 14:00 09/08/25 18:00 Sodium Chloride 250 ml @ 0 mls/hr AD IV 08/29/25 17:30 09/28/25 17:29 Sodium Chloride 1,000 ml @ 0 mls/hr Q0M IV 08/29/25 16:00 08/29/25 16:03 DC Sodium Chloride 1,000 ml @ 0 mls/hr Q0M IV 08/29/25 16:00 09/01/25 08:01 DC 08/29/25 16:10 500 MLS/HR Sodium Chloride 1,000 ml @ 125 mls/hr Q8H IV 08/29/25 09:30 08/29/25 09:57 DC Sodium Chloride 1,000 ml @ 150 mls/hr Q6H40M IV 08/29/25 18:30 09/01/25 09:29 DC 08/31/25 16:16 150 MLS/HR Sodium Chloride 1,000 ml @ 200 mls/hr PROTOCOL IV 08/29/25 12:30 08/29/25 16:05 DC Sodium Chloride 1,000 ml @ 999 mls/hr Q1H1M IV 08/29/25 09:30 08/29/25 09:06 DC Thiamine HCl (Vitamin B-1) 200 mg Q12H IVP 08/29/25 09:30 09/02/25 09:30 DC 09/02/25 08:56 200 MG Vitamin B Complex (Vitamin B-12) 1,000 mcg DAILY PO 09/08/25 09:00 10/08/25 08:59 DIAGNOSTICS / RADIOLOGY: [ ] ASSESSMENT: Acute upper GI bleeding- Hematemesis, dark output from ileostomy bag, POA, Improving Acute DVT of right axillary vein and right cephalic vein High output from ileostomy bag, not POA Hemorrhagic shock versus hypovolemic shock, POA, Resolved Normocytic normochromic anemia, POA Hypovolemic hypochloremic hyponatremia, POA, Resolved Severe hyperkalemia, POA, Resolved Hypokalemia, Not POA, resolved Hypophosphatemia, Not POA High anion gap metabolic acidosis, POA, Resolved Hyperammonemia, POA, Improving Lactic acidosis, POA, Resolved Hyperphosphatemia, POA, Resolved Acute renal failure - Prerenal Acute Kidney Injury, POA, resolved Starvation Ketoacidosis, POA Rule out occult sepsis, POA Recent extended hospitalization in [facility], 07/20/2025- 08/25/2025 for sepsis, acute abdomen, POA Severe Dehydration, POA, Improving History of esophageal varices, POA Acute Decompensated liver cirrhosis, POA Hx of acute cholecystitis, s/p cholecystostomy tube placement on 08/02/2025. Perisplenic abscess, s/p CT-guided drainage placement on 08/09/2025. 2.7 x 2.2 x 5.1 cm infrasplenic collection History of gastritis, POA Hx of Generalized peritonitis with ESBL E coli infection, POA Moderate Protein calorie malnutrition POA History of bilious peritonitis with small colonic anastomosis perforation s/p diagnostic laparoscopy, abdominal washout, ileostomy creation by Dr. Gann, 07/21/2025 Hx of DM II, POA Recent colovesical fistula repair with sigmoid colon resection and anastomosis on PLAN: High output from ileostomy * Continue fiber 3 times a day. Secretions have thickened. * Monitor for any signs of dehydration including vitals and BMP. * Lactulose decreased to b.i.d. from t.i.d.. * Monitor input and output including ileostomy bag. Acute DVT of right axillary vein and right cephalic vein * Patient developed nodular, tender swelling along the venous distribution in right upper extremity * Venous doppler on 09/05/25 revealed acute DVT of right axillary vein and right cephalic vein * Hematology recommended to bridge Lovenox 60 mg Q12 with Apixaban 10 mg BID for 5 days followed by Apixaban 5 mg bid for 3 months * Gastroenterology cleared patient for anticoagulation Acute upper GI bleeding- Hematemesis, dark output from ileostomy bag * EGD was done which showed less than 5 mm esophageal varices with scar in the lower 3rd of the esophagus, hypertensive gastropathy, status post biopsy, duodenum was normal during examination. * Patient received Sandostatin and Protonix drip on presentation which were sub sequently stopped . * Patient resumed on IV Protonix 40 mg b.i.d. * Patient continues on GI soft bland diet and she is tolerating it well producing output in her ileostomy bag. * Ileostomy output 225 ml in last 24 hours and has thicker consistency, continue fiber 3 times daily. Normocytic normochromic anemia, iron deficiency * Patient's hemoglobin stable at 9.5 * Anemia of chronic disease versus iron deficiency versus blood loss. * Iron 31, TIBC 155, % sat 20 * Keep hemoglobin above 7 Acute renal failure, Prerenal Acute Kidney Injury, Dehydration, resolved * On Presentation, patient's creatinine was 5, BUN 80. * FENa <0.2, Stone <20 - Urine microscopy showed Hyaline and granular casts * patient was started on NaCl 150mls/hr which was stopped. * Bicarb drip was discontinued as per nephrology. * patient is successfully weaned off Levophed * Patient received emergent hemodialysis session for elevated renal parameters as well as electrolyte derangements including Hyperkalemia and acidosis. * Her creatinine and BUN have improved to 1.0 and 16 respectively (08/31) * Transfuse as needed to keep Hb above 7 (Hb=9.0, 08/31/25) * Monitor input and output. Patient's total output in the past24 hours is 2070, versus 3950 input. * We will repeat a.m. labs and follow up with Nephrology recommendations. Hyperammonemia * On 09/02, ammonia levels were 39. * Continue lactulose 20 mg bid * Follow up with ammonia levels. ATTESTATION BY PHYSICIAN I have seen and examined the patient. I reviewed the documentation, medical decision making, and treatment plan as noted by the resident physician above. I agree with the findings and plan of care. AYAKA BARR MD, HARSHAVARDHA MD Sep 07, 2025 12:39
--- NOTE | 2025-09-07 13:40 | PN ---
LINDA SUNSHINE MD 09/07/25 1340: 50-year-old female with underlying history of type 2 diabetes mellitus, history of liver cirrhosis, prior history of esophageal varices requiring banding in May,, history of robotic sigmoid resection with takedown of colovesical fistula who was recently hospitalized in [facility] from 07/20/2025 - 08/25/2025 patient was found to have bilious peritonitis with 2 mm perforation of colonic anastomosis requiring diagnostic laparoscopy, abdominal washout and drain placement with creation of diverting loop ileostomy. Patient was hospitalized for about one month and subsequently required IR guided drain placement as well. She was just discharged from the hospital on 08/25/2025. Patient's daughter reports that patient was having nausea and vomiting with poor oral intake at home. She started to have coffee-ground emesis today and she also noticed some right streaks of blood with a coffee-ground emesis. Stool has also been dark in the ileostomy bag. Patient is having moderate intensity abdominal pain as well. She has not been taking any NSAIDs. Daughter reports that patient has been very weak since her discharge in very debilitated. Patient denies active chest pain. Denies active shortness of breath. 09/06/25 Patient was seen and evaluated at bedside. She is currently doing well, denies any nausea or abdominal pain or vomiting. As per the nurse, she had bright red blood in her ileostomy bag last night but it was clear this morning. Venous Doppler of RUE revealed DVT in right axillary vein and thrombosis of rt cephalic vein and we were consulted for the same. 09/07/25 Patient was seen and evaluated at bedside. She admits to doing well, has complaints of generalized body pain but denies pain to her right arm. She had blood mixed with stool in her ileostomy bag and a total output of 225ml last night as per the primary nurse, currently no blood noted in the ileostomy bag or the drain. PHYSICAL EXAM LUNGS: Good air entry. No rales, no rhonchi. CARDIOVASCULAR: S1, S2 regular. No murmur heard. ABDOMEN: Soft, non tender, bowel sounds present, no organomegaly CENTRAL NERVOUS SYSTEM: Awake, alert, oriented x 3. No focal deficits. SKIN: No rashes, no swelling. LYMPHATICS: No peripheral lymphadenopathy MUSCULOSKELETAL: No joint swelling, erythema or tenderness. EXTREMITIES: No cyanosis or clubbing IMPRESSION 1. Acute DVT of Right axillary vein 2. Iron Deficiency Anemia 3. Acute upper GI bleed, resolved 4. Liver cirrhosis 5. Prerenal CYNTHIA, resolved PLAN 1. Stop Lovenox night dose and start eliquis 10mg q12 for one week and transition to 5mg q12 for 3 months . 2.Peripheral blood smear shows microcytic hypochromic anemia consistent with iron deficiency anemia . There is no teardrop cell, pelger huet cell or rouleaux formation Cytoplasmic vacuolation seen in neutrophils. Platelet morphology and count within normal limits . 3. There is hypersegmented neutrophil. This patient will benefit from Folic acid 1 mg daily and Vitamin B12 1000 mcg daily Vitals/Labs Vital Signs Date Time Temp Pulse Resp B/P (MAP) Pulse Ox O2 Delivery O2 Flow Rate FiO2 09/07/25 12:00 98.2 74 18 128/69 97 Room Air 09/06/25 20:32 0 21 Laboratory Tests 09/07/25 05:18 Medications Current Medications Octreotide Acetate 50 mcg ONCE ONCE IV Last administered on 08/29/25at 09:02; Start 08/29/25 at 08:30; Stop 08/29/25 at 08:31; Status DC Octreotide Acetate 1250 mcg/ Sodium Chloride 250 ml @ 0 mls/hr PROTOCOL IV Last administered on 08/31/25at 10:18; Start 08/29/25 at 08:30; Stop 09/01/25 at 10:32; Status DC Pantoprazole Sodium 80 mg ONCE ONCE IVP Last administered on 08/29/25at 09:02; Start 08/29/25 at 08:30; Stop 08/29/25 at 08:31; Status DC Pantoprazole Sodium 80 mg/ Sodium Chloride 100 ml @ 10 mls/hr Q10H IV Last administered on 09/01/25at 05:50; Start 08/29/25 at 08:30; Stop 09/01/25 at 10:32; Status DC Promethazine HCl 25 mg ONCE ONCE IM Last administered on 08/29/25at 09:07; Start 08/29/25 at 08:30; Stop 08/29/25 at 08:33; Status DC Sodium Chloride 1,000 ml @ 999 mls/hr Q1H1M IV; Start 08/29/25 at 09:30; Stop 08/29/25 at 09:06; Status DC Calcium Gluconate 1 gm/Sodium Chloride 110 ml @ 110 mls/hr ONCE ONCE IV Last administered on 08/29/25at 09:41; Start 08/29/25 at 09:30; Stop 08/29/25 at 10:29; Status DC Dextrose 50 ml ONCE ONCE IV; Start 08/29/25 at 09:30; Stop 08/29/25 at 09:27; Status DC Insulin Human Regular 5 unit ONCE ONCE IV Last administered on 08/29/25at 09:57; Start 08/29/25 at 09:30; Stop 08/29/25 at 09:31; Status DC Albuterol Sulfate 10 mg ONCE ONCE IH Last administered on 08/29/25at 09:37; Start 08/29/25 at 09:30; Stop 08/29/25 at 09:31; Status DC Lactulose 200 gm ONCE ONCE [place]; Start 08/29/25 at 09:30; Stop 08/29/25 at 09:36; Status DC Calcium Gluconate 1 gm ONCE IV; Start 08/29/25 at 09:30; Stop 08/29/25 at 09:23; Status DC Sodium Chloride 1,000 ml @ 125 mls/hr Q8H IV; Start 08/29/25 at 09:30; Stop 08/29/25 at 09:57; Status DC Insulin Human Regular 5 unit ONCE IV; Start 08/29/25 at 09:30; Stop 08/29/25 at 09:25; Status DC Dextrose 50 ml ONCE ONCE IV Last administered on 08/29/25at 09:47; Start 08/29/25 at 09:30; Stop 08/29/25 at 09:31; Status DC Sodium Bicarbonate 50 meq ONCE ONCE IV Last administered on 08/29/25at 09:47; Start 08/29/25 at 09:30; Stop 08/29/25 at 09:31; Status DC Pharmacy Profile Note 1 each ONCE MISC; Start 08/29/25 at 09:30; Stop 08/29/25 at 09:35; Status DC Ondansetron HCl 4 mg Q6H PRN IVP Last administered on 09/03/25at 04:33; Start 08/29/25 at 09:30; Stop 09/28/25 at 09:29 Thiamine HCl 200 mg Q12H IVP Last administered on 09/02/25at 08:56; Start 08/29/25 at 09:30; Stop 09/02/25 at 09:30; Status DC Meropenem 500 mg Q24H IVPB Last administered on 08/30/25at 09:46; Start 08/29/25 at 10:00; Stop 08/31/25 at 09:59; Status DC Sodium Chloride 1,000 ml @ 0 mls/hr ONCE ONCE IV Last administered on 08/29/25at 09:47; Start 08/29/25 at 10:00; Stop 08/29/25 at 10:01; Status DC Dextrose 50 ml AD PRN IV; Start 08/29/25 at 10:00; Stop 09/28/25 at 09:59 Glucagon 1 mg AD PRN IM; Start 08/29/25 at 10:00; Stop 09/28/25 at 09:59 Acetaminophen 650 mg Q6H PRN PO; Start 08/29/25 at 10:00; Stop 09/28/25 at 09:59 Albuterol 1 udvial Q6H PRN IH; Start 08/29/25 at 10:00; Stop 09/28/25 at 09:59 Sodium Bicarbonate 50 meq ONCE ONCE IV Last administered on 08/29/25at 10:12; Start 08/29/25 at 10:00; Stop 08/29/25 at 10:05; Status DC Sodium Bicarbonate 150 meq/Dextrose 1,150 ml @ 125 mls/hr Q9H12M IVP Last administered on 08/30/25at 08:07; Start 08/29/25 at 10:00; Stop 08/30/25 at 10:12; Status DC Insulin Human Regular INSULIN SLIDING SCAL... ACHS SQ Last administered on 09/06/25at 16:27; Start 08/29/25 at 11:30; Stop 09/28/25 at 11:29 Sodium Chloride 1,000 ml @ 0 mls/hr ONCE ONCE IV Last administered on 08/29/25at 13:44; Start 08/29/25 at 11:00; Stop 08/29/25 at 11:06; Status DC Sodium Chloride 1,000 ml @ 200 mls/hr PROTOCOL IV; Start 08/29/25 at 12:30; Stop 08/29/25 at 16:05; Status DC Magnesium Sulfate 50 ml @ 0 mls/hr PROTOCOL IV; Start 08/29/25 at 12:30; Stop 08/29/25 at 16:05; Status DC Insulin Human Regular 100 unit/ Sodium Chloride 101 ml @ 0 mls/hr PROTOCOL IV; Start 08/29/25 at 12:30; Stop 08/29/25 at 16:05; Status DC Dextrose/Sodium Chloride 1,000 ml @ 0 mls/hr AD IV; Start 08/29/25 at 12:30; Stop 08/29/25 at 16:05; Status DC Potassium Chloride 100 ml @ 50 mls/hr AD PRN IV Last administered on 09/02/25at 06:26; Start 08/29/25 at 12:30; Stop 09/28/25 at 12:29 Lidocaine HCl 20 ml STK-MED ONCE .ROUTE; Start 08/29/25 at 14:24; Stop 08/29/25 at 14:25; Status DC Lidocaine HCl 20 ml STK-MED ONCE .ROUTE Last administered on 08/29/25at 15:59; Start 08/29/25 at 14:25; Stop 08/29/25 at 14:25; Status DC Sodium Chloride 1,000 ml @ 0 mls/hr Q0M IV; Start 08/29/25 at 16:00; Stop 08/29/25 at 16:03; Status DC Sodium Chloride 1,000 ml @ 0 mls/hr Q0M IV Last administered on 08/29/25at 16:10; Start 08/29/25 at 16:00; Stop 09/01/25 at 08:01; Status DC Sodium Chloride 250 ml @ 0 mls/hr AD IV; Start 08/29/25 at 17:30; Stop 09/28/25 at 17:29 Sodium Chloride 1,000 ml @ 0 mls/hr ONCE ONCE IV Last administered on 08/29/25at 19:57; Start 08/29/25 at 17:30; Stop 08/29/25 at 17:35; Status DC Sodium Chloride 1,000 ml @ 150 mls/hr Q6H40M IV Last administered on 08/31/25at 16:16; Start 08/29/25 at 18:30; Stop 09/01/25 at 09:29; Status DC Dexmedetomidine/ Sodium Chloride 400 mcg STK-MED ONCE IV; Start 08/29/25 at 19:56; Stop 08/29/25 at 19:56; Status DC Norepinephrine Bitartrate 32 mg/ Sodium Chloride 250 ml @ 0 mls/hr Q0M STAT IV Last administered on 08/29/25at 21:13; Start 08/29/25 at 21:01; Stop 08/29/25 at 21:07; Status DC Magnesium Sulfate 50 ml @ 0 mls/hr PROTOCOL IV Last administered on 09/06/25at 11:39; Start 08/30/25 at 10:00; Stop 09/29/25 at 09:59 Morphine Sulfate 2 mg ONCE ONCE IVP Last administered on 08/31/25at 02:24; Start 08/31/25 at 02:30; Stop 08/31/25 at 02:31; Status DC Potassium Phosphate 250 ml @ 42 mls/hr PROTOCOL ONCE IV Last administered on 08/31/25at 10:11; Start 08/31/25 at 09:00; Stop 08/31/25 at 14:57; Status DC Multivitamins/ Minerals 10 ml/ Chromium/Copper/ Manganese/Zinc 3 ml/Amino Acids/ Electrolytes/ Dextrose 2,000 ml @ 83 mls/hr ONCE ONCE IV Last administered on 08/31/25at 20:53; Start 08/31/25 at 20:00; Stop 09/01/25 at 11:25; Status DC Midodrine 10 mg BID PO; Start 09/01/25 at 09:00; Stop 08/31/25 at 18:36; Status DC Midodrine 10 mg ONCE ONCE PO Last administered on 08/31/25at 18:36; Start 08/31/25 at 18:30; Stop 08/31/25 at 18:31; Status DC Midodrine 10 mg TID PO Last administered on 09/07/25at 09:42; Start 09/01/25 at 09:00; Stop 10/01/25 at 08:59 Pharmacy Profile Note 1 each [place] [facility] [place] Start 08/31/25 at 23:30; Stop 08/31/25 at 23:17; Status DC Meropenem 500 mg Q24H IVPB Last administered on 09/06/25at 23:19; Start 08/31/25 at 23:30; Stop 09/10/25 at 23:29 Morphine Sulfate 2 mg Q4H PRN IVP Last administered on 09/05/25at 04:28; Start 09/01/25 at 05:30; Stop 09/05/25 at 13:19; Status DC Propofol 200 mg STK-MED ONCE IV; Start 09/01/25 at 09:53; Stop 09/01/25 at 09:53; Status DC Ketamine HCl 50 mg STK-MED ONCE .ROUTE; Start 09/01/25 at 09:53; Stop 09/01/25 at 09:53; Status DC Pantoprazole Sodium 40 mg BID IVP Last administered on 09/03/25at 09:16; Start 09/01/25 at 21:00; Stop 09/03/25 at 14:32; Status DC Lactulose 20 gm TID PO Last administered on 09/05/25at 08:06; Start 09/01/25 at 14:00; Stop 09/05/25 at 10:44; Status DC Multivitamins/ Minerals 10 ml/ Amino Acids/ Electrolytes/ Dextrose 2,000 ml @ 83 mls/hr ONCE ONCE IV Last administered on 09/01/25at 22:13; Start 09/01/25 at 20:00; Stop 09/02/25 at 20:05; Status DC Magnesium Sulfate 50 ml @ 0 mls/hr PROTOCOL IV; Start 09/02/25 at 13:30; Stop 09/02/25 at 13:04; Status DC Magnesium Sulfate 50 ml @ 0 mls/hr PROTOCOL IV; Start 09/03/25 at 08:00; Stop 09/03/25 at 07:43; Status DC Pantoprazole Sodium 40 mg DAILY PO Last administered on 09/05/25at 08:06; Start 09/04/25 at 09:00; Stop 09/06/25 at 00:03; Status DC Duloxetine HCl 30 mg BID PO Last administered on 09/07/25at 09:41; Start 09/03/25 at 21:00; Stop 10/03/25 at 20:59 Psyllium Hydrophilic Mucilloid 1 tbs TID PO Last administered on 09/07/25at 09:42; Start 09/04/25 at 14:00; Stop 10/04/25 at 13:59 Cyclobenzaprine HCl 5 mg TID PRN PO; Start 09/05/25 at 11:00; Stop 10/05/25 at 10:59 Home Med (Medroxyprogesterone Acetate (Provera) 1 TAB) DAILY PO; Start 09/06/25 at 09:00; Stop 10/06/25 at 08:59 Atorvastatin Calcium 5 mg HS PO Last administered on 09/06/25at 19:57; Start 09/05/25 at 21:00; Stop 10/05/25 at 20:59 Lactulose 20 gm BID PO Last administered on 09/05/25at 21:30; Start 09/05/25 at 21:00; Stop 10/01/25 at 13:59 Morphine Sulfate 1 mg Q4H PRN IVP Last administered on 09/06/25at 23:40; Start 09/05/25 at 13:30; Stop 09/07/25 at 11:35; Status DC Lactated Ringer's 1,000 ml @ 100 mls/hr Q10H IV Last administered on 09/06/25at 08:35; Start 09/06/25 at 00:00; Stop 09/06/25 at 18:44; Status DC Pantoprazole Sodium 40 mg BID IVP Last administered on 09/07/25at 09:42; Start 09/06/25 at 09:00; Stop 10/06/25 at 08:59 Enoxaparin Sodium 1 unit Q12H SQ; Start 09/06/25 at 13:30; Stop 09/06/25 at 13:21; Status DC Enoxaparin Sodium 60 mg Q12H SQ Last administered on 09/07/25at 01:11; Start 09/06/25 at 13:30; Stop 10/06/25 at 13:29 Folic Acid 1 mg DAILY PO; Start 09/08/25 at 09:00; Stop 10/08/25 at 08:59 Vitamin B Complex 1,000 mcg DAILY PO; Start 09/08/25 at 09:00; Stop 10/08/25 at 08:59 Sodium Bicarbonate 1,300 mg TID PO; Start 09/07/25 at 14:00; Stop 09/08/25 at 18:00 Morphine Sulfate 0.5 mg Q4H PRN IVP; Start 09/07/25 at 13:30; Stop 09/14/25 at 13:29 LYNDSEY GOYAL MD 09/07/25 1351: I attest that I was physically present to evaluate the patient and I reviewed and discussed the case with the Resident and agree with the Resident's findings and plans of care as documented above with modifications. Case discussed with resident on the date stated at the beginning of note. Patient was first seen and evaluated by me during this hospitalization. LINDA SUNSHINE MD Sep 07, 2025 13:40 LYNDSEY GOYAL MD Sep 07, 2025 13:51
[2025-09-07] MEDS: SODIUM BICARBONATE 650 MG TAB PO SCH (14:19)
--- NOTE | 2025-09-07 14:30 | NUR ---
ILEOSTOMY CHANGE LEAKAGE FROM ILEOSTOMY BAG. LEAKAGE FROM RIGHT SIDE NOTED. REMOVED APPLIANCE, STOMA CARE PROVIDED. TWO PIECE APPLIANCE APPLIED. SECURED WITH TAPE.
--- NOTE | 2025-09-07 15:24 | PN ---
Interval history: This is a 55-year-old female resting in her room Overnight patient had issues with ostomy bag rupturing At time of exam nursing with placing ostomy bag ostomy appearing clean no active bleeding noted Labs and vitals stable Patient continues with the anticoagulation medication Patient tolerating diet but less appetite today Ostomy stools slightly more solid Protein intake still low Physical exam General: Awake alert and oriented Heart: Regular rate and rhythm} Lungs: Clear to auscultation no distress Abdomen: [Soft, nontender, nondistended ostomy with good color to stoma Assessment and Plan: From surgical standpoint we will order abdominal binder and cut hold for ostomy Patient to continue with diet as tolerated Await for hematology recommendations for DVT Patient to be instructed on appropriate wound care Patient to continue with physical therapy and ambulation Surgical team follow patient closely and Dr. Gann to be updated on patient's status Surgical case has been discussed with my supervising physician in the above plan was formulated and agreed upon We appreciate the hospitalist team for us to participate in patient's care. Greater than 45 minutes of time spent patient, reviewing chart, working on documentation Vitals/Labs Vital Signs Date Time Temp Pulse Resp B/P (MAP) Pulse Ox O2 Delivery O2 Flow Rate FiO2 09/07/25 12:00 98.2 74 18 128/69 97 Room Air 09/06/25 20:32 0 21 Laboratory Tests 09/07/25 05:18 Medications Current Medications Octreotide Acetate 50 mcg ONCE ONCE IV Last administered on 08/29/25at 09:02; Start 08/29/25 at 08:30; Stop 08/29/25 at 08:31; Status DC Octreotide Acetate 1250 mcg/ Sodium Chloride 250 ml @ 0 mls/hr PROTOCOL IV Last administered on 08/31/25at 10:18; Start 08/29/25 at 08:30; Stop 09/01/25 at 10:32; Status DC Pantoprazole Sodium 80 mg ONCE ONCE IVP Last administered on 08/29/25at 09:02; Start 08/29/25 at 08:30; Stop 08/29/25 at 08:31; Status DC Pantoprazole Sodium 80 mg/ Sodium Chloride 100 ml @ 10 mls/hr Q10H IV Last administered on 09/01/25at 05:50; Start 08/29/25 at 08:30; Stop 09/01/25 at 10:32; Status DC Promethazine HCl 25 mg ONCE ONCE IM Last administered on 08/29/25at 09:07; Start 08/29/25 at 08:30; Stop 08/29/25 at 08:33; Status DC Sodium Chloride 1,000 ml @ 999 mls/hr Q1H1M IV; Start 08/29/25 at 09:30; Stop 08/29/25 at 09:06; Status DC Calcium Gluconate 1 gm/Sodium Chloride 110 ml @ 110 mls/hr ONCE ONCE IV Last administered on 08/29/25at 09:41; Start 08/29/25 at 09:30; Stop 08/29/25 at 10:29; Status DC Dextrose 50 ml ONCE ONCE IV; Start 08/29/25 at 09:30; Stop 08/29/25 at 09:27; Status DC Insulin Human Regular 5 unit ONCE ONCE IV Last administered on 08/29/25at 09:57; Start 08/29/25 at 09:30; Stop 08/29/25 at 09:31; Status DC Albuterol Sulfate 10 mg ONCE ONCE IH Last administered on 08/29/25at 09:37; Start 08/29/25 at 09:30; Stop 08/29/25 at 09:31; Status DC Lactulose 200 gm ONCE ONCE ME; Start 08/29/25 at 09:30; Stop 08/29/25 at 09:36; Status DC Calcium Gluconate 1 gm ONCE IV; Start 08/29/25 at 09:30; Stop 08/29/25 at 09:23; Status DC Sodium Chloride 1,000 ml @ 125 mls/hr Q8H IV; Start 08/29/25 at 09:30; Stop 08/29/25 at 09:57; Status DC Insulin Human Regular 5 unit ONCE IV; Start 08/29/25 at 09:30; Stop 08/29/25 at 09:25; Status DC Dextrose 50 ml ONCE ONCE IV Last administered on 08/29/25at 09:47; Start 08/29/25 at 09:30; Stop 08/29/25 at 09:31; Status DC Sodium Bicarbonate 50 meq ONCE ONCE IV Last administered on 08/29/25at 09:47; Start 08/29/25 at 09:30; Stop 08/29/25 at 09:31; Status DC Pharmacy Profile Note 1 each ONCE MISC; Start 08/29/25 at 09:30; Stop 08/29/25 at 09:35; Status DC Ondansetron HCl 4 mg Q6H PRN IVP Last administered on 09/03/25at 04:33; Start 08/29/25 at 09:30; Stop 09/28/25 at 09:29 Thiamine HCl 200 mg Q12H IVP Last administered on 09/02/25at 08:56; Start 08/29/25 at 09:30; Stop 09/02/25 at 09:30; Status DC Meropenem 500 mg Q24H IVPB Last administered on 08/30/25at 09:46; Start 08/29/25 at 10:00; Stop 08/31/25 at 09:59; Status DC Sodium Chloride 1,000 ml @ 0 mls/hr ONCE ONCE IV Last administered on 08/29/25at 09:47; Start 08/29/25 at 10:00; Stop 08/29/25 at 10:01; Status DC Dextrose 50 ml AD PRN IV; Start 08/29/25 at 10:00; Stop 09/28/25 at 09:59 Glucagon 1 mg AD PRN IM; Start 08/29/25 at 10:00; Stop 09/28/25 at 09:59 Acetaminophen 650 mg Q6H PRN PO; Start 08/29/25 at 10:00; Stop 09/28/25 at 09:59 Albuterol 1 udvial Q6H PRN IH; Start 08/29/25 at 10:00; Stop 09/28/25 at 09:59 Sodium Bicarbonate 50 meq ONCE ONCE IV Last administered on 08/29/25at 10:12; Start 08/29/25 at 10:00; Stop 08/29/25 at 10:05; Status DC Sodium Bicarbonate 150 meq/Dextrose 1,150 ml @ 125 mls/hr Q9H12M IVP Last administered on 08/30/25at 08:07; Start 08/29/25 at 10:00; Stop 08/30/25 at 10:12; Status DC Insulin Human Regular INSULIN SLIDING SCAL... ACHS SQ Last administered on 09/06/25at 16:27; Start 08/29/25 at 11:30; Stop 09/28/25 at 11:29 Sodium Chloride 1,000 ml @ 0 mls/hr ONCE ONCE IV Last administered on 08/29/25at 13:44; Start 08/29/25 at 11:00; Stop 08/29/25 at 11:06; Status DC Sodium Chloride 1,000 ml @ 200 mls/hr PROTOCOL IV; Start 08/29/25 at 12:30; Stop 08/29/25 at 16:05; Status DC Magnesium Sulfate 50 ml @ 0 mls/hr PROTOCOL IV; Start 08/29/25 at 12:30; Stop 08/29/25 at 16:05; Status DC Insulin Human Regular 100 unit/ Sodium Chloride 101 ml @ 0 mls/hr PROTOCOL IV; Start 08/29/25 at 12:30; Stop 08/29/25 at 16:05; Status DC Dextrose/Sodium Chloride 1,000 ml @ 0 mls/hr AD IV; Start 08/29/25 at 12:30; Stop 08/29/25 at 16:05; Status DC Potassium Chloride 100 ml @ 50 mls/hr AD PRN IV Last administered on 09/02/25at 06:26; Start 08/29/25 at 12:30; Stop 09/28/25 at 12:29 Lidocaine HCl 20 ml STK-MED ONCE .ROUTE; Start 08/29/25 at 14:24; Stop 08/29/25 at 14:25; Status DC Lidocaine HCl 20 ml STK-MED ONCE .ROUTE Last administered on 08/29/25at 15:59; Start 08/29/25 at 14:25; Stop 08/29/25 at 14:25; Status DC Sodium Chloride 1,000 ml @ 0 mls/hr Q0M IV; Start 08/29/25 at 16:00; Stop 08/29/25 at 16:03; Status DC Sodium Chloride 1,000 ml @ 0 mls/hr Q0M IV Last administered on 08/29/25at 16:10; Start 08/29/25 at 16:00; Stop 09/01/25 at 08:01; Status DC Sodium Chloride 250 ml @ 0 mls/hr AD IV; Start 08/29/25 at 17:30; Stop 09/28/25 at 17:29 Sodium Chloride 1,000 ml @ 0 mls/hr ONCE ONCE IV Last administered on 08/29/25at 19:57; Start 08/29/25 at 17:30; Stop 08/29/25 at 17:35; Status DC Sodium Chloride 1,000 ml @ 150 mls/hr Q6H40M IV Last administered on 08/31/25at 16:16; Start 08/29/25 at 18:30; Stop 09/01/25 at 09:29; Status DC Dexmedetomidine/ Sodium Chloride 400 mcg STK-MED ONCE IV; Start 08/29/25 at 19:56; Stop 08/29/25 at 19:56; Status DC Norepinephrine Bitartrate 32 mg/ Sodium Chloride 250 ml @ 0 mls/hr Q0M STAT IV Last administered on 08/29/25at 21:13; Start 08/29/25 at 21:01; Stop 08/29/25 at 21:07; Status DC Magnesium Sulfate 50 ml @ 0 mls/hr PROTOCOL IV Last administered on 09/06/25at 11:39; Start 08/30/25 at 10:00; Stop 09/29/25 at 09:59 Morphine Sulfate 2 mg ONCE ONCE IVP Last administered on 08/31/25at 02:24; Start 08/31/25 at 02:30; Stop 08/31/25 at 02:31; Status DC Potassium Phosphate 250 ml @ 42 mls/hr PROTOCOL ONCE IV Last administered on 08/31/25at 10:11; Start 08/31/25 at 09:00; Stop 08/31/25 at 14:57; Status DC Multivitamins/ Minerals 10 ml/ Chromium/Copper/ Manganese/Zinc 3 ml/Amino Acids/ Electrolytes/ Dextrose 2,000 ml @ 83 mls/hr ONCE ONCE IV Last administered on 08/31/25at 20:53; Start 08/31/25 at 20:00; Stop 09/01/25 at 11:25; Status DC Midodrine 10 mg BID PO; Start 09/01/25 at 09:00; Stop 08/31/25 at 18:36; Status DC Midodrine 10 mg ONCE ONCE PO Last administered on 08/31/25at 18:36; Start 08/31/25 at 18:30; Stop 08/31/25 at 18:31; Status DC Midodrine 10 mg TID PO Last administered on 09/07/25at 14:19; Start 09/01/25 at 09:00; Stop 10/01/25 at 08:59 Pharmacy Profile Note 1 each ONCE MISC; Start 08/31/25 at 23:30; Stop 08/31/25 at 23:17; Status DC Meropenem 500 mg Q24H IVPB Last administered on 09/06/25at 23:19; Start 08/31/25 at 23:30; Stop 09/10/25 at 23:29 Morphine Sulfate 2 mg Q4H PRN IVP Last administered on 09/05/25at 04:28; Start 09/01/25 at 05:30; Stop 09/05/25 at 13:19; Status DC Propofol 200 mg STK-MED ONCE IV; Start 09/01/25 at 09:53; Stop 09/01/25 at 09:53; Status DC Ketamine HCl 50 mg STK-MED ONCE .ROUTE; Start 09/01/25 at 09:53; Stop 09/01/25 at 09:53; Status DC Pantoprazole Sodium 40 mg BID IVP Last administered on 09/03/25at 09:16; Start 09/01/25 at 21:00; Stop 09/03/25 at 14:32; Status DC Lactulose 20 gm TID PO Last administered on 09/05/25at 08:06; Start 09/01/25 at 14:00; Stop 09/05/25 at 10:44; Status DC Multivitamins/ Minerals 10 ml/ Amino Acids/ Electrolytes/ Dextrose 2,000 ml @ 83 mls/hr ONCE ONCE IV Last administered on 09/01/25at 22:13; Start 09/01/25 at 20:00; Stop 09/02/25 at 20:05; Status DC Magnesium Sulfate 50 ml @ 0 mls/hr PROTOCOL IV; Start 09/02/25 at 13:30; Stop 09/02/25 at 13:04; Status DC Magnesium Sulfate 50 ml @ 0 mls/hr PROTOCOL IV; Start 09/03/25 at 08:00; Stop 09/03/25 at 07:43; Status DC Pantoprazole Sodium 40 mg DAILY PO Last administered on 09/05/25at 08:06; Start 09/04/25 at 09:00; Stop 09/06/25 at 00:03; Status DC Duloxetine HCl 30 mg BID PO Last administered on 09/07/25at 09:41; Start 09/03/25 at 21:00; Stop 10/03/25 at 20:59 Psyllium Hydrophilic Mucilloid 1 tbs TID PO Last administered on 09/07/25at 14:20; Start 09/04/25 at 14:00; Stop 10/04/25 at 13:59 Cyclobenzaprine HCl 5 mg TID PRN PO; Start 09/05/25 at 11:00; Stop 10/05/25 at 10:59 Home Med (Medroxyprogesterone Acetate (Provera) 1 TAB) DAILY PO; Start 09/06/25 at 09:00; Stop 10/06/25 at 08:59 Atorvastatin Calcium 5 mg HS PO Last administered on 09/06/25at 19:57; Start 09/05/25 at 21:00; Stop 10/05/25 at 20:59 Lactulose 20 gm BID PO Last administered on 09/05/25at 21:30; Start 09/05/25 at 21:00; Stop 10/01/25 at 13:59 Morphine Sulfate 1 mg Q4H PRN IVP Last administered on 09/06/25at 23:40; Start 09/05/25 at 13:30; Stop 09/07/25 at 11:35; Status DC Lactated Ringer's 1,000 ml @ 100 mls/hr Q10H IV Last administered on 09/06/25at 08:35; Start 09/06/25 at 00:00; Stop 09/06/25 at 18:44; Status DC Pantoprazole Sodium 40 mg BID IVP Last administered on 09/07/25at 09:42; Start 09/06/25 at 09:00; Stop 10/06/25 at 08:59 Enoxaparin Sodium 1 unit Q12H SQ; Start 09/06/25 at 13:30; Stop 09/06/25 at 13:21; Status DC Enoxaparin Sodium 60 mg Q12H SQ Last administered on 09/07/25at 14:29; Start 09/06/25 at 13:30; Stop 09/07/25 at 15:03; Status DC Folic Acid 1 mg DAILY PO; Start 09/08/25 at 09:00; Stop 10/08/25 at 08:59 Vitamin B Complex 1,000 mcg DAILY PO; Start 09/08/25 at 09:00; Stop 10/08/25 at 08:59 Sodium Bicarbonate 1,300 mg TID PO Last administered on 09/07/25at 14:19; Start 09/07/25 at 14:00; Stop 09/08/25 at 18:00 Morphine Sulfate 0.5 mg Q4H PRN IVP; Start 09/07/25 at 13:30; Stop 09/14/25 at 13:29 Apixaban 10 mg BID PO; Start 09/07/25 at 22:00; Stop 09/12/25 at 21:59 BENEDICTO OBRIEN Jr. PAC Sep 07, 2025 15:24
[2025-09-07 16:00] VITALS: BP 156/75; PULSE 75; RESP 18; TEMP 97.3
[2025-09-07 20:00] VITALS: BP 123/69; PULSE 82; RESP 16; TEMP 97.9; O2SAT 98
--- NOTE | 2025-09-07 23:22 | PN ---
FOLLOWUP PROGRESS NOTE SUBJECTIVE: A 55-year-old female with a history of diabetes mellitus and hypertension. She initially presented to the hospital with GI bleeding. The patient did have significant hyperkalemia upon admission and did require one course of dialysis. The patient's renal function has greatly improved. The patient had been having some hematochezia through the ostomy and the patient is being seen by Surgical Service and the patient is being seen as a followup visit for all of the above. REVIEW OF SYSTEMS: CONSTITUTIONAL: She is feeling weak and tired. HEENT: No change in vision. No change in hearing. CARDIOVASCULAR: There is no current chest pain or palpitations. PULMONARY: She denies any shortness of breath. GASTROINTESTINAL: As described above. PHYSICAL EXAMINATION: VITAL SIGNS: Blood pressure 123/64, pulse 70. GENERAL: She is a chronically ill female, much older than appearing. HEENT: Head is atraumatic. Pupils are equal, round and reactive to light. Oropharynx is without exudate. Nares clear. NECK: There is no JVP. There is no thyromegaly. No masses. CARDIOVASCULAR: Regular. There is no S3 or S4. LUNGS: Coarse with equal thoracic movement. ABDOMEN: Soft, nondistended, nontender. EXTREMITIES: Reveal no clubbing or cyanosis. NEUROLOGICAL: She is awake. She is alert. LABORATORY DATA: Sodium 136, potassium 4, BUN 9, creatinine 0.6, hemoglobin 9.4, and hematocrit 28. IMPRESSION: Acute renal failure, much improved. Gastrointestinal bleeding. Hypertension. Diabetes mellitus. PLAN: The patient's renal function has greatly improved. The patient is tolerating some amount of diet. Workup is ongoing per Surgical Service. Blood pressure is under adequate control. We will continue to follow closely. All labs will be repeated in the morning. TID: [id number] RECEIPT: [id number]
[2025-09-08] VITALS: BP 129/75; PULSE 71; RESP 24; TEMP 97.8
--- NOTE | 2025-09-08 00:37 | NUR ---
ILEOSTOMY CHANGE ILEOSTOMY BAG LEAKING FROM LEFT SIDE APPLIANCE WAS REMOVED, STOMA CARE PROVIDED. TWO PIECE APPLIANCE APPLIED AND SECURED WITH TAPE
[2025-09-08 01:55] LABS: IMMATURE GRANULOCYTE ABSOLUTE 0.02 K/uL (0-1); NUCLEATED RED BLOOD CELLS 0.0 % (0.0-0.19); PLATELET COUNT (AUTO) 158 K/uL (130-400); RED BLOOD CELL COUNT(AUTO) 3.54 MIL/uL (4.00-5.50); RED CELL DISTRIBUTION WIDTH 18.1 % (11.0-15.5); WHITE BLOOD COUNT (AUTO) 3.7 K/uL (4.8-10.8)
[2025-09-08 02:02] LABS: CREATININE 0.7 mg/dL (0.5-1.0); GLOMERULAR FILTR. RATE CALC 101.0 mL/min (>90); GLUCOSE,RANDOM 91.0 mg/dL (70-105); SODIUM SERUM 137.0 mmol/L (136-145); UREA NITROGEN, BLOOD 9.0 mg/dL (7-18)
--- NOTE | 2025-09-08 02:55 | NUR ---
ILEOSTOMY CHANGE ILEOSTOMY BAG LEAKING, PINK TINGED LIQUID NOTED IN BAG APPLIANCE REMOVED, STOMA CARE PROVIDED TWO PIECE APPLIANCE APPLIED ABDOMINAL BINDER IN PLACE
[2025-09-08 04:00] VITALS: BP 118/66; PULSE 74; RESP 20; TEMP 98.9
[2025-09-08 08:00] VITALS: BP 122/69; PULSE 78; RESP 18; TEMP 98.2
[2025-09-08] MEDS: CYANOCOBALAMIN (VITAMIN B-12) 1,000 MCG TABLET PO SCH (09:13)
[2025-09-08 09:16] VITALS: O2SAT 97
--- NOTE | 2025-09-08 12:36 | PN ---
[facility] PROGRESS NOTE Date of Service: Sep 08, 2025 Time of Service: 12:35 SUBJECTIVE: As per admission notes "50-year-old female with underlying history of type 2 diabetes mellitus, history of liver cirrhosis, prior history of esophageal varices requiring banding in May,, history of robotic sigmoid resection with takedown of colovesical fistula who was recently hospitalized in [facility] from 07/20/2025 - 08/25/2025 patient was found to have bilious peritonitis with 2 mm perforation of colonic anastomosis requiring diagnostic laparoscopy, abdominal washout and drain placement with creation of diverting loop ileostomy. Patient was hospitalized for about one month and subsequently required IR guided drain placement as well. She was just discharged from the hospital on 08/25/2025. Patient's daughter reports that patient was having nausea and vomiting with poor oral intake at home. She started to have coffee-ground emesis today and she also noticed some right streaks of blood with a coffee-ground emesis. Stool has also been dark in the ileostomy bag. Patient is having moderate intensity abdominal pain as well. She has not been taking any NSAIDs. Daughter reports that patient has been very weak since her discharge in very debilitated. Patient denies active chest pain. Denies active shortness of breath. On presentation to the hospital, patient was noted to be afebrile with T-max of 97.5 F, heart rate of 100, blood pressure of 127/91. [place] [address], hemoglobin of 16.4, platelet count of 968238. BMP was repeated twice, BMP showed sodium of 117, potassium 7.0, chloride of 88, CO2 of seven, BUN of 83, creatinine 5.0, blood glucose of 99, calcium 10.4. Blood gas showed pH of 7.28, bicarb of close to eight, CO2 of 18, lactic acid of three. Patient will be admitted to ICU. Patient is presenting with severe renal failure with hyperkalemia and severe metabolic acidosis. Patient also with concerns for upper GI bleeding with coffee-ground emesis. Patient remains critically ill consultation with Intensive Care, Nephrology, GI will be requested. We we will obtain a CT abdomen pelvis without contrast for further evaluation as well. Patient is critically ill. Plan of care was discussed with patient and daughter at bedside" 08/30/2025 Patient was seen and examined at bedside. Her blood pressure has been low, 88/54, heart rate 86. She is currently on Levophed 0.2 Mcg, octreotide, Protonix, sodium bicarbonate drip. She received 2nd hemodialysis session yesterday. As per Nephrology, she will continue to receive dialysis inpatient. Her high anion gap metabolic acidosis is improving with sodium 134, carbon dioxide 31, chloride 96. Her creatinine has trended down from 5-1.8. General surgery consult is on board and we will follow up with their recommendations. Additionally, in the light of history of liver cirrhosis with esophageal varices, her recent hematemesis will be evaluated with GI consult and possible endoscopy. We discussed this with the patient and her family members present besides. Patient is started on Merrem and blood culture, urine cultures show no growth so far. Her lactic acid has trended down from 3.1 to 2.1. 08/31/2025 Patient was seen and examined at bedside in room 214. She continues to be on Levophed 0.1 which is being weaned off. She is also on Sandostatin and Protonix drip. Patient complained of mild pain along the sides of her drain but denied any nausea or episode of vomiting since Saturday. Minimal drainage was noted. Sodium bicarb was discontinued as per Nephrology. Her lab markers have improved with sodium 141, chloride 104, bicarb 32, creatinine 1, BUN 16, ammonia 34. Her urine sodium was less than 20 consistent with prerenal CYNTHIA. We are pending blood and urine culture results. Her total output in the past24 hours has been optimal, 2069. She is on sodium chloride 150 mL/hour. We are following gastroenterology recommendations of possible upper endoscopy in the morning if patient condition remains stable. 09/01/2025 Patient was seen and examined at bedside. She is off vasopressor support and is hemodynamically stable. Her chest x-ray showed opacity in the left lower lobe and we will follow up with CT scan of chest. She is started on 2nd day of ppm today. She successfully underwent EGD which showed small, less than 5 mm, esophageal varices with scar in the lower 3rd of the esophagus. Patient was noted to have portal hypertensive gastropathy which was biopsied. Duodenum was normal during examination. Patient is receiving Merrem and her blood culture and urine cultures have shown no growth so far. Due to her elevated ammonia levels, she will be started on lactulose. We will proceed with caution with respect to normal saline as patient's BNP is elevated. 09/02/2025 The patient has been seen and examined earlier this morning during my rounding, case discussed with the RN, no acute events overnight, blood pressure 118/71, h eart rate of 56, afebrile, saturating normal on room air, CBC showing hemoglobin 8.5, hematocrit 36.8, WBC of 4.4, platelet count of 99, sodium 137, potassium 3.8, BUN of 18, creatinine 0.7, magnesium Lasix. Results of blood culture no growth after four days. Urine culture no growth. EGD reviewed, small less than 5 mm esophageal varices with scar in the lower 3rd of the esophagus. Patient with a bottle hypertensive gastropathy, status post biopsy, duodenum was normal during examination. Patient to be downgraded to the medical floor, continue banana bag, continue Protonix 40 mg IV b.i.d.. Plan for possible PEG tube placement. 09/03/2025 Patient was seen and examined at bedside. She has been advanced to GI soft bland diet which she is tolerating really well and having output in her ileostomy bag. As per surgeon, if she continues to tolerate diet, she may not require G-tube placement on discharge. Patient did not complain of any significant pain and seemed to be doing really well. Her cholecystostomy tube was removed but her splenic percutaneous tube is still in position and may require further IR intervention for repositioning due to persistent and mildly increased perisplenic fluid collection. She is receiving lactulose and her ammonia levels have gone down. Her acute renal failure continues to resolve and her vitals are also stable. No growth on urine and blood culture so far. We have shifted her from Protonix IV to p.o. as per GI recommendations. 09/04/2025 Patient was seen and examined at bedside in room 302. She has been tolerating GI soft bland diet, ileostomy output seems very high, liquid consistency and patient will be receiving fiber 3 times a day. Patient may require further IR intervention on Saturday for splenic drain reposition due to persistent and mildly increased perisplenic fluid collection. Vitals are stable, blood and urine culture shows no growth so far. 09/05/2025 Patient was seen and examined at bedside. She is tolerating GI soft bland diet, and her ileostomy output is high although liquid in consistency. We have decreased lactulose to b.i.d. from t.i.d. She continues on fiber 3 times a day as per surgery recommendations to bulk up the stool from the ileostomy in order to decrease the chances of further dehydration from high ileostomy output. Additionally, nodular swelling was appreciated in her right upper extremity which could be concerning for superficial venous thrombosis for which ultrasound Doppler of right upper extremity has been ordered. Patient is currently undergoing bladder training while being catheterized and we will proceed with Dueñas catheter removal as tolerated. 09/06/2025: Patient was seen and examined at bedside in room 302. She is tolerating GI soft bland diet and her ileostomy output has thicker consistency. Nurse reported that there was bright red blood in the ileostomy bag last night however this morning it was free from blood. Venous Doppler of the right upper extremity revealed deep vein thrombosis in right axillary vein and right cephalic vein, advice from Gastroenterology and Hematology was requested to start anticoagulation. Patient was started on Lovenox 1 mg/kg body weight as per Hematology recommendations. Patient will be continued on IV Protonix 40 mg b.i.d. 09/07/2025: Patient was seen and examined at bedside in room 302. Patient complained of generalized body pains however denied specific pain to the right arm or in abdomen. She is tolerating GI soft bland it and had to 25 mL of total output from ileostomy bag last night as per the primary nurse. During my evaluation in the morning there was no blood observed in the ileostomy bag however around 10:30 a.m. nurse reported blood in the ileostomy bag. Dr. Gonzalez recommended to continue Lovenox and bridge with apixaban 10 mg for 5 days and then transition to apixaban 5 mg for 3 months. Surgery recommended to continue current medical management and await management of DVT for potential discharge. However we will try to connect with them regarding removal of splenic drain or repositioning through IR Services. 09/08/2025: Patient was examined at bedside in room 302. Patient's family memb ers were present during the evaluation of helped us translate. Her ileostomy bag was clear. Patient attendants voiced that patient was more anxious about noticing blood in her ileostomy bag. Patient's hemoglobin and hematocrit have remained stable. Ileostomy bag has been replaced due to leakage. Patient and the family members were educated on proper care for ileostomy bag by the wound care team and was also reinforced that she needs to be on anticoagulation for venous thrombosis for preventing dislodging of clot to lungs and causing fatal pulmonary embolism. Risks and benefits were explained to the patient that patient will need anticoagulation and her hemoglobin will be monitored regularly. Was also encouraged to keep her food intake high and prevent dehydration. We will connect with surgical team for management of splenic catheter drain. REVIEW OF SYSTEMS CONSTITUTIONAL: malaise, poor oral intake -resolving NEUROLOGICAL: Denies headache, motor weakness, sensory deficit, vertigo/spinning sensation, gait abnormalities, or tremors. ENT: No hearing loss, otalgia, otorrhea, rhinitis, rhinorrhea, hoarseness, or sore throat. CARDIOVASCULAR: Denies any exertional angina, dyspnea on exertion, orthopnea, paroxysmal nocturnal dyspnea, palpitations, life-threatening arrhythmias, claudication. PULMONARY: Denies any shortness of breath, cough, phlegm/sputum, hemoptysis, pleuritic chest pain. SLEEP: Denies morning headaches, daytime somnolence or napping. Denies diffic ulty falling asleep, staying asleep, waking from sleep. Denies knowledge of snoring. GASTROINTESTINAL: nausea, vomiting, abdominal pain, melena, coffee ground emesis - resolved GENITOURINARY: Urine output was very low - resolving PHYSICAL EXAM GENERAL APPEARANCE: The patient is awake, alert, and oriented, answering to all questions with very mild pain around her drains. NEUROLOGICAL: Cranial nerves II-XII grossly intact. Neurological examination is non focal with spontaneous movement of upper and lower extremities HEENT: Face is symmetric. Pupils are equal and reactive. Extraocular movements are intact. NECK: Supple. No JVD. No thyromegaly. No submental, submandibular, pre- /postauricular, occipital or supraclavicular lymphadenopathy. CHEST: Normal chest expansion. No Telemetry. LUNGS: Absence of any rales, rhonchi or any wheezing. CARDIOVASCULAR: Regular. S1 and S2 normal. No appreciable rubs, murmurs or gallops. ABDOMEN: no rebound noted, there is perisplenic abdominal drain noted with ileostomy bag. : Deferred. Currently catheterized. EXTREMITIES: Swelling in right upper extremity. Mild ecchymosis. Vital Signs (last 8hr) Date Time Temp Pulse Resp B/P (MAP) Pulse Ox O2 Delivery O2 Flow Rate FiO2 11/5/25 09:16 97 Room Air* 0 21 09/08/25 08:00 98.2 78 18 122/69 97 Room Air LABS: Laboratory: Test 09/08/25 10:44 09/08/25 10:18 09/08/25 01:50 Range/Units Whole Blood Glucose 81 70-110 MG/DL Hemoglobin 9.7 L 12.0-16.0 g/dL Hematocrit 29.9 L 36-48 % White Blood Count 3.7 L 4.8-10.8 K/uL Red Blood Count 3.54 L 4.00-5.50 MIL/uL Mean Corpuscular Volume 94.4 79-99 fL Mean Corpuscular Hemoglobin 30.2 27.0-33.0 pg Mean Corpuscular Hemoglobin Concent 32.0 32.0-36.0 g/dL Red Cell Distribution Width 18.1 H 11.0-15.5 % Platelet Count 158 130-400 K/uL Mean Platelet Volume 10.0 7.5-10.5 fL Immature Granulocyte % (Auto) 0.5 0-1 % Neutrophils (%) (Auto) 54.6 40.0-77.0 % Lymphocytes (%) (Auto) 32.2 21.0-51.0 % Monocytes (%) (Auto) 9.2 3.0-13.0 % Eosinophils (%) (Auto) 3.0 0.0-8.0 % Basophils (%) (Auto) 0.5 0.0-5.0 % Neutrophils # (Auto) 2.0 1.8-7.7 K/uL Lymphocytes # (Auto) 1.2 1.0-4.8 K/uL Monocytes # (Auto) 0.3 0.1-1.0 K/uL Eosinophils # (Auto) 0.11 0.00-0.70 K/uL Basophils # (Auto) 0.02 0.00-0.20 K/uL Absolute Immature Granulocyte (auto 0.02 0-1 K/uL Nucleated Red Blood Cells 0.0 0.0-0.19 % Sodium Level 137 136-145 mmol/L Potassium Level 3.6 3.5-5.1 mmol/L Chloride Level 110 101-111 mmol/L Carbon Dioxide Level 19 L 21-32 mmol/L Blood Urea Nitrogen 9 7-18 mg/dL Creatinine 0.7 0.5-1.0 mg/dL Glomerular Filtration Rate Calc 101 >90 mL/min Random Glucose 91 70-105 mg/dL Total Calcium 8.5 8.5-10.1 mg/dL Magnesium Level 1.60 L 1.80-2.40 mg/dL Albumin 2.5 L 3.5-5.0 g/dL Current Medications Medications (Trade) Dose Ordered Sig/Gregory Route PRN Reason Start Time Stop Time Status Last Admin Dose Admin Acetaminophen (TYLenol 325MG TAB) 650 mg Q6H PRN PO MILD PAIN (1-3) 08/29/25 10:00 09/28/25 09:59 Acetaminophen/ Hydrocodone Bitart (NORco 5/325MG) 2 tab Q4H PRN PO SEVERE PAIN (7-10) 09/08/25 09:30 09/13/25 09:29 Albuterol (DUOneb) 1 udvial Q6H PRN IH SHORTNESS OF BREATH 08/29/25 10:00 09/28/25 09:59 Apixaban (EliquIS) 5 mg BID PO 09/08/25 21:00 10/08/25 20:59 Apixaban (EliquIS) 10 mg BID PO 09/07/25 22:00 09/08/25 01:42 DC 09/07/25 22:06 10 MG Apixaban (EliquIS) 10 mg BID PO 09/08/25 09:30 09/08/25 10:13 DC Atorvastatin Calcium (LIPItor 10MG) 5 mg HS PO 09/05/25 21:00 10/05/25 20:59 09/07/25 20:58 5 MG Calcium Gluconate (Calcium Gluc 1gm Vial) 1 gm ONCE IV 08/29/25 09:30 08/29/25 09:23 DC Cyclobenzaprine HCl (Cyclobenzaprine HCl) 5 mg TID PRN PO muscle spasms 09/05/25 11:00 10/05/25 10:59 Dextrose (D50w) 50 ml AD PRN IV HYPOGLYCEMIA PROTOCOL 08/29/25 10:00 09/28/25 09:59 Dextrose/Sodium Chloride 1,000 ml @ 0 mls/hr AD IV 08/29/25 12:30 08/29/25 16:05 DC Duloxetine HCl (CymbALTA 30 mg CAP) 30 mg BID PO 09/03/25 21:00 10/03/25 20:59 09/08/25 09:13 30 MG Enoxaparin Sodium (Lovenox (Pharmacy To Dose)) 1 unit Q12H SQ 09/06/25 13:30 09/06/25 13:21 DC Enoxaparin Sodium (Lovenox 60mg) 60 mg Q12H SQ 09/06/25 13:30 09/07/25 15:03 DC 09/07/25 14:29 60 MG Folic Acid (FOLic ACID 1 MG TABLET) 1 mg DAILY PO 09/08/25 09:00 10/08/25 08:59 09/08/25 09:13 1 MG Glucagon (Glucagon 1mg Kit) 1 mg AD PRN IM HYPOGLYCEMIA PROTOCOL 08/29/25 10:00 09/28/25 09:59 Home Med (Home Medication) (Medroxyprogesterone Acetate (Provera) 1 TAB) DAILY PO 09/06/25 09:00 10/06/25 08:59 Insulin Human Regular (humuLIN R 100 UNIT/ML 3ML) 5 unit ONCE IV 08/29/25 09:30 08/29/25 09:25 DC Insulin Human Regular (humuLIN R 100 UNIT/ML 3ML) INSULIN SLIDING SCAL... ACHS SQ 08/29/25 11:30 09/28/25 11:29 09/06/25 16:27 3 UNIT Insulin Human Regular 100 unit/ Sodium Chloride 101 ml @ 0 mls/hr PROTOCOL IV 08/29/25 12:30 08/29/25 16:05 DC Lactated Ringer's 1,000 ml @ 100 mls/hr Q10H IV 09/06/25 00:00 09/06/25 18:44 DC 09/06/25 08:35 100 MLS/HR Lactulose (Constulose 20gm/ 30ml Udcup) 20 gm BID PO 09/05/25 21:00 10/01/25 13:59 09/07/25 20:59 20 GM Lactulose (Constulose 20gm/ 30ml Udcup) 20 gm TID PO 09/01/25 14:00 09/05/25 10:44 DC 09/05/25 08:06 20 GM Magnesium Sulfate 50 ml @ 0 mls/hr PROTOCOL IV 08/29/25 12:30 08/29/25 16:05 DC Magnesium Sulfate 50 ml @ 0 mls/hr PROTOCOL IV 08/30/25 10:00 09/29/25 09:59 09/08/25 04:26 25 MLS/HR Magnesium Sulfate 50 ml @ 0 mls/hr PROTOCOL IV 09/02/25 13:30 09/02/25 13:04 DC Magnesium Sulfate 50 ml @ 0 mls/hr PROTOCOL IV 09/03/25 08:00 09/03/25 07:43 DC Meropenem (Merrem 500mg) 500 mg Q24H IVPB 08/29/25 10:00 08/31/25 09:59 DC 08/30/25 09:46 500 MG Meropenem (Merrem 500mg) 500 mg Q24H IVPB 08/31/25 23:30 09/10/25 23:29 09/07/25 22:27 500 MG Midodrine (PROAMatine 5 MG TABLET) 10 mg BID PO 09/01/25 09:00 08/31/25 18:36 DC Midodrine (PROAMatine 5 MG TABLET) 10 mg TID PO 09/01/25 09:00 10/01/25 08:59 09/08/25 09:13 10 MG Morphine Sulfate (morPHINE 2MG SYG) 0.5 mg Q4H PRN IVP SEVERE PAIN (7-10) 09/07/25 13:30 09/08/25 09:11 DC 09/08/25 04:27 0.5 MG Morphine Sulfate (morPHINE 2MG SYG) 1 mg Q4H PRN IVP SEVERE PAIN (7-10) 09/05/25 13:30 09/07/25 11:35 DC 09/06/25 23:40 1 MG Morphine Sulfate (morPHINE 2MG SYG) 2 mg Q4H PRN IVP SEVERE PAIN (7-10) 09/01/25 05:30 09/05/25 13:19 DC 09/05/25 04:28 2 MG Norepinephrine Bitartrate 32 mg/ Sodium Chloride 250 ml @ 0 mls/hr Q0M STAT IV 08/29/25 21:01 08/29/25 21:07 DC 08/29/25 21:13 0 MLS/HR Octreotide Acetate 1250 mcg/ Sodium Chloride 250 ml @ 0 mls/hr PROTOCOL IV 08/29/25 08:30 09/01/25 10:32 DC 08/31/25 10:18 5 MLS/HR Ondansetron HCl (zoFRAN 4MG INJ) 4 mg Q6H PRN IVP NAUSEA/VOMITING 08/29/25 09:30 09/28/25 09:29 09/07/25 22:27 4 MG Pantoprazole Sodium (PROTonix 40MG INJ) 40 mg BID IVP 09/01/25 21:00 09/03/25 14:32 DC 09/03/25 09:16 40 MG Pantoprazole Sodium (PROTonix 40MG INJ) 40 mg BID IVP 09/06/25 09:00 10/06/25 08:59 09/08/25 09:12 40 MG Pantoprazole Sodium (PROTonix 40MG TAB) 40 mg DAILY PO 09/04/25 09:00 09/06/25 00:03 DC 09/05/25 08:06 40 MG Pantoprazole Sodium 80 mg/ Sodium Chloride 100 ml @ 10 mls/hr Q10H IV 08/29/25 08:30 09/01/25 10:32 DC 09/01/25 05:50 10 MLS/HR Pharmacy Profile Note (Pharmacy Communication) 1 each ONCE MISC 08/29/25 09:30 08/29/25 09:35 DC Pharmacy Profile Note (Pharmacy Communication) 1 each ONCE MISC 08/31/25 23:30 08/31/25 23:17 DC Potassium Chloride 100 ml @ 50 mls/hr AD PRN IV POTASSIUM PROTOCOL 08/29/25 12:30 09/28/25 12:29 09/02/25 06:26 50 MLS/HR Psyllium Hydrophilic Mucilloid (Metamucil) 1 tbs TID PO 09/04/25 14:00 10/04/25 13:59 09/08/25 09:12 1 TBS Sodium Bicarbonate 150 meq/Dextrose 1,150 ml @ 125 mls/hr Q9H12M IVP 08/29/25 10:00 08/30/25 10:12 DC 08/30/25 08:07 125 MLS/HR Sodium Bicarbonate (Sodium Bicarbonate) 1,300 mg TID PO 09/07/25 14:00 09/08/25 18:00 09/08/25 09:13 1,300 MG Sodium Chloride 250 ml @ 0 mls/hr AD IV 08/29/25 17:30 09/28/25 17:29 Sodium Chloride 1,000 ml @ 0 mls/hr Q0M IV 08/29/25 16:00 08/29/25 16:03 DC Sodium Chloride 1,000 ml @ 0 mls/hr Q0M IV 08/29/25 16:00 09/01/25 08:01 DC 08/29/25 16:10 500 MLS/HR Sodium Chloride 1,000 ml @ 125 mls/hr Q8H IV 08/29/25 09:30 08/29/25 09:57 DC Sodium Chloride 1,000 ml @ 150 mls/hr Q6H40M IV 08/29/25 18:30 09/01/25 09:29 DC 08/31/25 16:16 150 MLS/HR Sodium Chloride 1,000 ml @ 200 mls/hr PROTOCOL IV 08/29/25 12:30 08/29/25 16:05 DC Sodium Chloride 1,000 ml @ 999 mls/hr Q1H1M IV 08/29/25 09:30 08/29/25 09:06 DC Thiamine HCl (Vitamin B-1) 200 mg Q12H IVP 08/29/25 09:30 09/02/25 09:30 DC 09/02/25 08:56 200 MG Vitamin B Complex (Vitamin B-12) 1,000 mcg DAILY PO 09/08/25 09:00 10/08/25 08:59 09/08/25 09:13 1,000 MCG DIAGNOSTICS / RADIOLOGY: [ ] ASSESSMENT: Acute upper GI bleeding- Hematemesis, dark output from ileostomy bag, POA, Improving Acute DVT of right axillary vein and right cephalic vein High output from ileostomy bag, not POA Hemorrhagic shock versus hypovolemic shock, POA, Resolved Normocytic normochromic anemia, POA Non anion gap metabolic acidosis Hypovolemic hypochloremic hyponatremia, POA, Resolved Severe hyperkalemia, POA, Resolved Hypokalemia, Not POA, resolved Hypophosphatemia, Not POA High anion gap metabolic acidosis, POA, Resolved Hyperammonemia, POA, Improving Lactic acidosis, POA, Resolved Hyperphosphatemia, POA, Resolved Acute renal failure - Prerenal Acute Kidney Injury, POA, resolved Starvation Ketoacidosis, POA Rule out occult sepsis, POA Recent extended hospitalization in [facility], 07/20/2025- 08/25/2025 for sepsis, acute abdomen, POA Severe Dehydration, POA, Improving History of esophageal varices, POA Acute Decompensated liver cirrhosis, POA Hx of acute cholecystitis, s/p cholecystostomy tube placement on 08/02/2025. Perisplenic abscess, s/p CT-guided drainage placement on 08/09/2025. 2.7 x 2.2 x 5.1 cm infrasplenic collection History of gastritis, POA Hx of Generalized peritonitis with ESBL E coli infection, POA Moderate Protein calorie malnutrition POA History of bilious peritonitis with small colonic anastomosis perforation s/p diagnostic laparoscopy, abdominal washout, ileostomy creation by Dr. Gann, 07/21/2025 Hx of DM II, POA Recent colovesical fistula repair with sigmoid colon resection and anastomosis on PLAN: High output from ileostomy * Continue fiber 3 times a day. Secretions have thickened. * Monitor for any signs of dehydration including vitals and BMP. * Lactulose decreased to b.i.d. from t.i.d.. * Monitor input and output including ileostomy bag. Acute DVT of right axillary vein and right cephalic vein * Patient developed nodular, tender swelling along the venous distribution in right upper extremity * Venous doppler on 09/05/25 revealed acute DVT of right axillary vein and right cephalic vein * Hematology recommended to bridge Lovenox 60 mg Q12 with Apixaban 10 mg BID for 5 days followed by Apixaban 5 mg bid for 3 months * We changed the apixaban to 5 mg b.i.d. * Gastroenterology cleared patient for anticoagulation Non-Anion gap metabolic acidosis * Patient's bicarb is 19, sodium 137, chloride 110 and albumin 2.5, albumin corrected anion gap 11.8 * Patient to be continued on 1300 mg of sodium bicarbonate t.i.d. * We will monitor labs tomorrow a.m. Acute upper GI bleeding- Hematemesis, dark output from ileostomy bag * EGD was done which showed less than 5 mm esophageal varices with scar in the lower 3rd of the esophagus, hypertensive gastropathy, status post biopsy, duodenum was normal during examination. * Patient received Sandostatin and Protonix drip on presentation which were subsequently stopped . * Patient resumed on IV Protonix 40 mg b.i.d. * Diet advanced to regular diet * Ileostomy output 225 ml in last 24 hours and has thicker consistency, continue fiber 3 times daily. Normocytic normochromic anemia, iron deficiency * Patient's hemoglobin stable at 9.5 * Anemia of chronic disease versus iron deficiency versus blood loss. * Iron 31, TIBC 155, % sat 20 * Keep hemoglobin above 7 Acute renal failure, Prerenal Acute Kidney Injury, Dehydration, resolved * On Presentation, patient's creatinine was 5, BUN 80. * FENa <0.2, Stone <20 - Urine microscopy showed Hyaline and granular casts * patient was started on NaCl 150mls/hr which was stopped. * Bicarb drip was discontinued as per nephrology. * patient is successfully weaned off Levophed * Patient received emergent hemodialysis session for elevated renal parameters as well as electrolyte derangements including Hyperkalemia and acidosis. * Her creatinine and BUN have improved to 0.7 and 9 respectively (09/08) * Transfuse as needed to keep Hb above 7 (Hb=9.0, 08/31/25) * Monitor input and output. Patient's total output in the past24 hours is 2070, versus 3950 input. * We will repeat a.m. labs and follow up with Nephrology recommendations. ATTESTATION BY PHYSICIAN I have seen and examined the patient. I reviewed the documentation, medical decision making, and treatment plan as noted by the resident physician above. I agree with the findings and plan of care. AYAKA BARR MD, HARSHAVARDHA MD Sep 08, 2025 12:35
--- NOTE | 2025-09-08 14:35 | PN ---
NEPHROLOGY PROGRESS NOTE Date/Time Patient Seen: Sep 08, 2025 SUBJECTIVE: This is a 55-year-old female with a past medical history of diabetes mellitus type 2, liver cirrhosis, esophageal varices. She initially presented to the hospital with GI bleeding. The patient did have significant hyperkalemia upon admission and did require one course of dialysis. The patient's renal function has greatly improved. The patient had been having some hematochezia through the ostomy and the patient is being seen by Surgical Service She continues to be followed by wound care. The patient is being seen as a followup visit for all of the above. She continues sodium chloride tablets. Renal function electrolytes has been stable. She was seen in the medical floor, in no acute distress Multiple family members at the bedside REVIEW OF SYSTEMS: GENERAL: Positive for generalized weakness NEUROLOGIC: Negative for any blurry vision, blind spots, double vision, facial asymmetry, dysphagia, dysarthria, hemiparesis, hemisensory deficits, vertigo, ataxia. HEENT: Negative for any head trauma, neck trauma, neck stiffness, photophobia, phonophobia, sinusitis, rhinitis. CARDIAC: Negative for any chest pain, dyspnea on exertion, paroxysmal nocturnal dyspnea, peripheral edema. PULMONARY: Negative for any shortness of breath, wheezing, COPD, or TB exposure. GASTROINTESTINAL: Negative for any abdominal pain, nausea, vomiting, bright red blood per rectum, melena. GENITOURINARY: Negative for any dysuria, hematuria, incontinence. INTEGUMENTARY: Negative for any rashes, cuts, insect bites. RHEUMATOLOGIC: Negative for any joint pains, photosensitive rashes, history of vasculitis or kidney problems. HEMATOLOGIC: Negative for any abnormal bruising, frequent infections or bleeding. Vital Signs (last 8hr) Date Time Temp Pulse Resp B/P (MAP) Pulse Ox O2 Delivery O2 Flow Rate FiO2 09/08/25 09:16 97 Room Air* 0 21 09/08/25 08:00 98.2 78 18 122/69 97 Room Air PHYSICAL EXAM: GENERAL: Alert and oriented x 3. No acute distress. Well-nourished. EYES: EOMI. Anicteric. HENT: Moist mucous membranes. No scleral icterus. No cervical lymphadenopathy. LUNGS: Clear to auscultation bilaterally. No accessory muscle use. CARDIOVASCULAR: Regular rate and rhythm. No murmur. No JVD. ABDOMEN: Soft, non-tender and non-distended. No palpable masses. Ileostomy in place EXTREMITIES: No edema. Non-tender. SKIN: No rashes or lesions. Warm. NEUROLOGIC: No focal neurological deficits. CN II-XII grossly intact, but not individually tested. PSYCHIATRIC: Cooperative. Appropriate mood and affect. Current Medications Medications (Trade) Dose Ordered Sig/Gregory Route PRN Reason Start Time Stop Time Status Last Admin Dose Admin Acetaminophen (TYLenol 325MG TAB) 650 mg Q6H PRN PO MILD PAIN (1-3) 08/29/25 10:00 09/28/25 09:59 Acetaminophen/ Hydrocodone Bitart (NORco 5/325MG) 2 tab Q4H PRN PO SEVERE PAIN (7-10) 09/08/25 09:30 09/13/25 09:29 Albuterol (DUOneb) 1 udvial Q6H PRN IH SHORTNESS OF BREATH 08/29/25 10:00 09/28/25 09:59 Apixaban (EliquIS) 5 mg BID PO 09/08/25 21:00 10/08/25 20:59 Apixaban (EliquIS) 10 mg BID PO 09/07/25 22:00 09/08/25 01:42 DC 09/07/25 22:06 10 MG Apixaban (EliquIS) 10 mg BID PO 09/08/25 09:30 09/08/25 10:13 DC Atorvastatin Calcium (LIPItor 10MG) 5 mg HS PO 09/05/25 21:00 10/05/25 20:59 09/07/25 20:58 5 MG Calcium Gluconate (Calcium Gluc 1gm Vial) 1 gm ONCE IV 08/29/25 09:30 08/29/25 09:23 DC Cyclobenzaprine HCl (Cyclobenzaprine HCl) 5 mg TID PRN PO muscle spasms 09/05/25 11:00 10/05/25 10:59 Dextrose (D50w) 50 ml AD PRN IV HYPOGLYCEMIA PROTOCOL 08/29/25 10:00 09/28/25 09:59 Dextrose/Sodium Chloride 1,000 ml @ 0 mls/hr AD IV 08/29/25 12:30 08/29/25 16:05 DC Duloxetine HCl (CymbALTA 30 mg CAP) 30 mg BID PO 09/03/25 21:00 10/03/25 20:59 09/08/25 09:13 30 MG Enoxaparin Sodium (Lovenox (Pharmacy To Dose)) 1 unit Q12H SQ 09/06/25 13:30 09/06/25 13:21 DC Enoxaparin Sodium (Lovenox 60mg) 60 mg Q12H SQ 09/06/25 13:30 09/07/25 15:03 DC 09/07/25 14:29 60 MG Folic Acid (FOLic ACID 1 MG TABLET) 1 mg DAILY PO 09/08/25 09:00 10/08/25 08:59 09/08/25 09:13 1 MG Glucagon (Glucagon 1mg Kit) 1 mg AD PRN IM HYPOGLYCEMIA PROTOCOL 08/29/25 10:00 09/28/25 09:59 Home Med (Home Medication) (Medroxyprogesterone Acetate (Provera) 1 TAB) DAILY PO 09/06/25 09:00 10/06/25 08:59 Insulin Human Regular (humuLIN R 100 UNIT/ML 3ML) 5 unit ONCE IV 08/29/25 09:30 08/29/25 09:25 DC Insulin Human Regular (humuLIN R 100 UNIT/ML 3ML) INSULIN SLIDING SCAL... ACHS SQ 08/29/25 11:30 09/28/25 11:29 09/06/25 16:27 3 UNIT Insulin Human Regular 100 unit/ Sodium Chloride 101 ml @ 0 mls/hr PROTOCOL IV 08/29/25 12:30 08/29/25 16:05 DC Lactated Ringer's 1,000 ml @ 100 mls/hr Q10H IV 09/06/25 00:00 09/06/25 18:44 DC 09/06/25 08:35 100 MLS/HR Lactulose (Constulose 20gm/ 30ml Udcup) 20 gm BID PO 09/05/25 21:00 10/01/25 13:59 09/07/25 20:59 20 GM Lactulose (Constulose 20gm/ 30ml Udcup) 20 gm TID PO 09/01/25 14:00 09/05/25 10:44 DC 09/05/25 08:06 20 GM Magnesium Sulfate 50 ml @ 0 mls/hr PROTOCOL IV 08/29/25 12:30 08/29/25 16:05 DC Magnesium Sulfate 50 ml @ 0 mls/hr PROTOCOL IV 08/30/25 10:00 09/29/25 09:59 09/08/25 04:26 25 MLS/HR Magnesium Sulfate 50 ml @ 0 mls/hr PROTOCOL IV 09/02/25 13:30 09/02/25 13:04 DC Magnesium Sulfate 50 ml @ 0 mls/hr PROTOCOL IV 09/03/25 08:00 09/03/25 07:43 DC Meropenem (Merrem 500mg) 500 mg Q24H IVPB 08/29/25 10:00 08/31/25 09:59 DC 08/30/25 09:46 500 MG Meropenem (Merrem 500mg) 500 mg Q24H IVPB 08/31/25 23:30 09/10/25 23:29 09/07/25 22:27 500 MG Midodrine (PROAMatine 5 MG TABLET) 10 mg BID PO 09/01/25 09:00 08/31/25 18:36 DC Midodrine (PROAMatine 5 MG TABLET) 10 mg TID PO 09/01/25 09:00 10/01/25 08:59 09/08/25 09:13 10 MG Morphine Sulfate (morPHINE 2MG SYG) 0.5 mg Q4H PRN IVP SEVERE PAIN (7-10) 09/07/25 13:30 09/08/25 09:11 DC 09/08/25 04:27 0.5 MG Morphine Sulfate (morPHINE 2MG SYG) 1 mg Q4H PRN IVP SEVERE PAIN (7-10) 09/05/25 13:30 09/07/25 11:35 DC 09/06/25 23:40 1 MG Morphine Sulfate (morPHINE 2MG SYG) 2 mg Q4H PRN IVP SEVERE PAIN (7-10) 09/01/25 05:30 09/05/25 13:19 DC 09/05/25 04:28 2 MG Norepinephrine Bitartrate 32 mg/ Sodium Chloride 250 ml @ 0 mls/hr Q0M STAT IV 08/29/25 21:01 08/29/25 21:07 DC 08/29/25 21:13 0 MLS/HR Octreotide Acetate 1250 mcg/ Sodium Chloride 250 ml @ 0 mls/hr PROTOCOL IV 08/29/25 08:30 09/01/25 10:32 DC 08/31/25 10:18 5 MLS/HR Ondansetron HCl (zoFRAN 4MG INJ) 4 mg Q6H PRN IVP NAUSEA/VOMITING 08/29/25 09:30 09/28/25 09:29 09/07/25 22:27 4 MG Pantoprazole Sodium (PROTonix 40MG INJ) 40 mg BID IVP 09/01/25 21:00 09/03/25 14:32 DC 09/03/25 09:16 40 MG Pantoprazole Sodium (PROTonix 40MG INJ) 40 mg BID IVP 09/06/25 09:00 10/06/25 08:59 09/08/25 09:12 40 MG Pantoprazole Sodium (PROTonix 40MG TAB) 40 mg DAILY PO 09/04/25 09:00 09/06/25 00:03 DC 09/05/25 08:06 40 MG Pantoprazole Sodium 80 mg/ Sodium Chloride 100 ml @ 10 mls/hr Q10H IV 08/29/25 08:30 09/01/25 10:32 DC 09/01/25 05:50 10 MLS/HR Pharmacy Profile Note (Pharmacy Communication) 1 each ONCE MISC 08/29/25 09:30 08/29/25 09:35 DC Pharmacy Profile Note (Pharmacy Communication) 1 each ONCE MISC 08/31/25 23:30 08/31/25 23:17 DC Potassium Chloride 100 ml @ 50 mls/hr AD PRN IV POTASSIUM PROTOCOL 08/29/25 12:30 09/28/25 12:29 09/02/25 06:26 50 MLS/HR Psyllium Hydrophilic Mucilloid (Metamucil) 1 tbs TID PO 09/04/25 14:00 10/04/25 13:59 09/08/25 09:12 1 TBS Sodium Bicarbonate 150 meq/Dextrose 1,150 ml @ 125 mls/hr Q9H12M IVP 08/29/25 10:00 08/30/25 10:12 DC 08/30/25 08:07 125 MLS/HR Sodium Bicarbonate (Sodium Bicarbonate) 1,300 mg TID PO 09/07/25 14:00 09/08/25 18:00 09/08/25 09:13 1,300 MG Sodium Chloride 250 ml @ 0 mls/hr AD IV 08/29/25 17:30 09/28/25 17:29 Sodium Chloride 1,000 ml @ 0 mls/hr Q0M IV 08/29/25 16:00 08/29/25 16:03 DC Sodium Chloride 1,000 ml @ 0 mls/hr Q0M IV 08/29/25 16:00 09/01/25 08:01 DC 08/29/25 16:10 500 MLS/HR Sodium Chloride 1,000 ml @ 125 mls/hr Q8H IV 08/29/25 09:30 08/29/25 09:57 DC Sodium Chloride 1,000 ml @ 150 mls/hr Q6H40M IV 08/29/25 18:30 09/01/25 09:29 DC 08/31/25 16:16 150 MLS/HR Sodium Chloride 1,000 ml @ 200 mls/hr PROTOCOL IV 08/29/25 12:30 08/29/25 16:05 DC Sodium Chloride 1,000 ml @ 999 mls/hr Q1H1M IV 08/29/25 09:30 08/29/25 09:06 DC Thiamine HCl (Vitamin B-1) 200 mg Q12H IVP 08/29/25 09:30 09/02/25 09:30 DC 09/02/25 08:56 200 MG Vitamin B Complex (Vitamin B-12) 1,000 mcg DAILY PO 09/08/25 09:00 10/08/25 08:59 09/08/25 09:13 1,000 MCG LABORATORY: [ ] Hematology Labs: Test 09/08/25 10:18 09/08/25 01:50 Range/Units Hemoglobin 9.7 L 12.0-16.0 g/dL Hematocrit 29.9 L 36-48 % White Blood Count 3.7 L 4.8-10.8 K/uL Red Blood Count 3.54 L 4.00-5.50 MIL/uL Mean Corpuscular Volume 94.4 79-99 fL Mean Corpuscular Hemoglobin 30.2 27.0-33.0 pg Mean Corpuscular Hemoglobin Concent 32.0 32.0-36.0 g/dL Red Cell Distribution Width 18.1 H 11.0-15.5 % Platelet Count 158 130-400 K/uL Mean Platelet Volume 10.0 7.5-10.5 fL Immature Granulocyte % (Auto) 0.5 0-1 % Neutrophils (%) (Auto) 54.6 40.0-77.0 % Lymphocytes (%) (Auto) 32.2 21.0-51.0 % Monocytes (%) (Auto) 9.2 3.0-13.0 % Eosinophils (%) (Auto) 3.0 0.0-8.0 % Basophils (%) (Auto) 0.5 0.0-5.0 % Neutrophils # (Auto) 2.0 1.8-7.7 K/uL Lymphocytes # (Auto) 1.2 1.0-4.8 K/uL Monocytes # (Auto) 0.3 0.1-1.0 K/uL Eosinophils # (Auto) 0.11 0.00-0.70 K/uL Basophils # (Auto) 0.02 0.00-0.20 K/uL Absolute Immature Granulocyte (auto 0.02 0-1 K/uL Nucleated Red Blood Cells 0.0 0.0-0.19 % Chemistry Labs: Test 09/08/25 10:44 09/08/25 01:50 Range/Units Whole Blood Glucose 81 70-110 MG/DL Sodium Level 137 136-145 mmol/L Potassium Level 3.6 3.5-5.1 mmol/L Chloride Level 110 101-111 mmol/L Carbon Dioxide Level 19 L 21-32 mmol/L Blood Urea Nitrogen 9 7-18 mg/dL Creatinine 0.7 0.5-1.0 mg/dL Glomerular Filtration Rate Calc 101 >90 mL/min Random Glucose 91 70-105 mg/dL Total Calcium 8.5 8.5-10.1 mg/dL Magnesium Level 1.60 L 1.80-2.40 mg/dL Albumin 2.5 L 3.5-5.0 g/dL DIAGNOSTICS / RADIOLOGY: [place] [address] [address] IMAGING REPORT Signed PATIENT: DALLAS BUCHANAN MR#: [id number] : 1970 SEX: F AGE: 55 LOCATION: 3AH ORDER [id number] STATUS: ADM IN REPORT#: [id number] SERVICE 2346 REASON: abdiominal pain ORDERING PHYSICIAN: CYNTHIA ALEXANDER PROCEDURE: ABDO WO - CT ABDOMEN W/O CONTRAST EXAMINATION CT Abdomen Without IV Contrast CLINICAL HISTORY Patient presents with abdominal pain. TECHNIQUE Axial computed tomography images of the abdomen were obtained without intravenous contrast. CONTRAST No IV contrast administered. COMPARISON 09/01/2025. FINDINGS: LUNG BASES: Residual trace left pleural effusion with adjacent atelectasis. Interval resolution of previously described mild right pleural effusion. Stable calcified nodule in the right lower lobe. LIVER: Nodular hepatic contour consistent with cirrhosis. GALLBLADDER AND BILE DUCTS: Multiple punctate calcifications in the gallbladder wall. No biliary ductal dilatation. PANCREAS AND SPLEEN: Stable perisplenic fluid collection with drainage catheter in situ and adjacent fat stranding. ADRENAL GLANDS: Unremarkable. KIDNEYS AND URETERS: Normal in size and morphology. No hydronephrosis or nephrolithiasis. STOMACH AND BOWEL: Stomach distended with food residue. Right lumbar ileostomy with stable postsurgical bowel changes. Uncomplicated colonic diverticula. A component of mild constipation. PERITONEUM: Stable mild mesenteric edema. Significant interval resolution of the previously demonstrated minimal free fluid along the greater curvature of the stomach. No new free fluid or free air. LYMPH NODES: No significant lymphadenopathy. VASCULATURE: No abdominal aortic aneurysm. BONES: Multilevel mild spondylosis. IMPRESSION: Nodular cirrhotic liver. Stable perisplenic fluid collection with drainage catheter in situ and adjacent fat stranding. Right lumbar ileostomy with stable postsurgical bowel changes. Residual trace left pleural effusion with adjacent atelectasis. Interval resolution of the right pleural effusion. Stable calcified right lower lobe pulmonary nodule. Stomach distended with food residue. Uncomplicated colonic diverticula with mild constipation. Stable mild mesenteric edema with interval resolution of previously described minimal free fluid. Multiple punctate calcifications in the gallbladder wall, likely cholesterolosis. /[place] DICTATED BY: ELDON MILLER Jr., MD DATE: 09/06/25233 ELECTRONICALLY SIGNED BY: ELDON MILLER Jr., MD DATE: 09/06/25233 PATIENT: DALLAS BUCHANAN MR#: [id number] : 1970 SEX: F AGE: 55 LOCATION: 3AH ORDER 18 STATUS: ADM IN REPORT#: [id number] SERVICE REASON: R/o DVT versus SVT ORDERING PHYSICIAN: SONJA PERALTA MD PROCEDURE: VENOUS UNI - US VENOUS DOPPLER UNILATERAL ADDENDUM REPORT ADDENDUM: Results were shared by telephone at 10:59am on 09-06-25 and acknowledged by Patients Nurse Ms. Britt Robert /[place] EXAMINATION: SPECTRAL DOPPLER ULTRASOUND EXAMINATION OF THE RIGHT UPPER EXTREMITY VEINS. CLINICAL HISTORY: To rule out DVT. COMPARISON: None. TECHNIQUE: Grayscale, color, and spectral Doppler images of the right upper extremity veins are submitted. FINDINGS: The internal jugular, subclavian, basilic, and brachial veins are patent. These veins show normal flow with physiological changes of phasicity and augmentation. The right axillary vein and cephalic veins are non-compressible and there is no flow on augmentation. IMPRESSION: Acute deep vein thrombosis in the right axillary vein. Right cephalic vein thrombosis. There is no deep vein thrombosis in the remainder of the right upper extmreiyt, /[place] DICTATED BY: TOBI LEAHY MD DATE: 09/06/251154 ELECTRONICALLY SIGNED BY: DATE: EXAMINATION: SPECTRAL DOPPLER ULTRASOUND EXAMINATION OF THE RIGHT UPPER EXTREMITY VEINS. CLINICAL HISTORY: To rule out DVT. COMPARISON: None. TECHNIQUE: Grayscale, color, and spectral Doppler images of the right upper extremity veins are submitted. FINDINGS: The internal jugular, subclavian, basilic, and brachial veins are patent. These veins show normal flow with physiological changes of phasicity and augmentation. The right axillary vein and cephalic veins are non-compressible and there is no flow on augmentation. IMPRESSION: Acute deep vein thrombosis in the right axillary vein. Right cephalic vein thrombosis. There is no deep vein thrombosis in the remainder of the right upper extmreiyt, /[place] DICTATED BY: TOBI LEAHY MD DATE: 09/06/25941 ELECTRONICALLY SIGNED BY: TOBI LEAHY MD DATE: 09/06/25941 PATIENT: DALLAS BUCHANAN MR#: [id number] : 1970 SEX: F AGE: 55 LOCATION: 3AH ORDER 2300 STATUS: ADM IN REPORT#: [id number] SERVICE 0600 REASON: hypoxic ORDERING PHYSICIAN: LOBO RICKS PROCEDURE: CXR1VW - CHEST 1VW EXAM: CR Chest, 1 View (Portable, Supine). CLINICAL HISTORY: Chest pain. COMPARISON: CR Chest, 2 View ??? 09/01/2025 01:13 AM EDT. FINDINGS: LUNGS: Area of haziness in left lower zone-Remained stable. Rest of the lungs are clear. No focal consolidation, pulmonary edema, or acute infiltrate. PLEURAL SPACES: No pleural effusion or pneumothorax. MEDIASTINUM: Cardiac size and mediastinal contours within normal limits. No acute osseous abnormality. LINES/DEVICES: Monitoring leads noted. No new devices identified. IMPRESSION: Area of haziness in left lower zone likely airspace opacity-Stable compared to previous radiograph. /[place] DICTATED BY: TOBI LEAHY MD DATE: 09/03/251137 ELECTRONICALLY SIGNED BY: TOBI LEAHY MD DATE: 09/03/25 113 PATIENT: DALLAS BUCHANAN MR#: [id number] : 1970 SEX: F AGE: 55 LOCATION: 2CV ORDER 1231 STATUS: ADM IN REPORT#: [id number] SERVICE 1227 REASON: EVALUATE LUQ PIGRTAIL FOR POSSIBLE REMOVAL ORDERING PHYSICIAN: SUSAN JHAVERI MD PROCEDURE: ABDO WO - CT ABDOMEN W/O CONTRAST ADDENDUM REPORT ADDENDUM: Results were shared by telephone at 11:21 pm on 09-01-25 and acknowledged by Patient's Nurse Jabier Bangura. /[place] EXAM: CT ABDOMEN WITHOUT INTRAVENOUS CONTRAST Technique: Multislice helical computed tomography of the abdomen was performed from the diaphragms through the iliac crests with axial images and coronal/sagittal reformations. Dose optimization per ALARA. Contrast: No intravenous contrast administered. Contrast Impression: Noncontrast technique limits assessment of enhancement-dependent pathology and characterization of fluid collections. Clinical Information: Evaluation of left upper quadrant pigtail drain for possible removal. Comparison: CT abdomen/pelvis without contrast dated 08/29/2025. Findings: Lung bases: Interval development of small bilateral pleural effusions with dependent subsegmental atelectasis in the lower lobes. Previously described tiny calcified nodules are not conspicuous on the current noncontrast images. Liver: Morphologic features of cirrhosis are unchanged. No focal hepatic lesion identified on this noncontrast study. Gallbladder and bile ducts: Decompressed gallbladder with a cholecystostomy tube in place, stable. No biliary ductal dilatation. Pancreas: Normal contour without peripancreatic inflammatory change. Spleen: Infrasplenic fluid collection adjacent to the splenic inferior pole measuring approximately 2.7 ??? 3.5 ??? 6.4 cm (previously 2.7 ??? 2.2 ??? 5.1 cm), with a pigtail drainage catheter in situ and mild adjacent fat stranding. Adrenal glands: Normal morphology bilaterally. Kidneys and ureters: Kidneys within normal size and contour; no hydronephrosis or hydroureter; no nephrolithiasis. Urinary bladder: Dueñas catheter in place with small intraluminal gas foci, likely iatrogenic; bladder otherwise unremarkable. Stomach and bowel: Right iliac fossa ileostomy defect ( 2.4 cm) and postoperative bowel changes, stable. No evidence of bowel obstruction, enteritis, or colitis. Peritoneum and mesentery: New minimal free fluid predominantly along the greater curvature of the stomach with mild mesenteric edema (anasarca). No free intraperitoneal air. Lymph nodes: No pathologic abdominopelvic lymphadenopathy. Vasculature: Abdominal aorta normal in caliber. Abdominal wall/soft tissues: Expected postoperative changes at the ostomy site; otherwise unremarkable. Osseous structures: No acute or aggressive osseous abnormality; mild degenerative changes in the visualized spine. Impression: * Infrasplenic collection with indwelling pigtail drain has increased in size compared with 08/29/2025 (now 2.7 ??? 3.5 ??? 6.4 cm from 2.7 ??? 2.2 ??? 5.1 cm) with mild surrounding fat stranding???ongoing collection persists. Drain removal is not advised at this time based on interval enlargement; recommend interventional radiology review for catheter position/patency, consideration of catheter upsizing or repositioning, and correlation with output and culture. * New small bilateral pleural effusions with dependent basilar atelectasis. Monitor clinically; consider diuresis or follow-up imaging as indicated. * Cirrhotic hepatic morphology, unchanged. * Decompressed gallbladder with cholecystostomy tube in place, stable; no biliary ductal dilatation. * Minimal ascites and mild mesenteric edema (anasarca), new from prior. * Dueñas catheter with small intravesical gas, likely iatrogenic. * No bowel obstruction, hydronephrosis, or nephrolithiasis identified. /[place] DICTATED BY: EDWIGE LEDESMA MD DATE: 09/01/25 1181 ELECTRONICALLY SIGNED BY: DATE: EXAM: CT ABDOMEN WITHOUT INTRAVENOUS CONTRAST Technique: Multislice helical computed tomography of the abdomen was performed from the diaphragms through the iliac crests with axial images and coronal/sagittal reformations. Dose optimization per ALARA. Contrast: No intravenous contrast administered. Contrast Impression: Noncontrast technique limits assessment of enhancement-dependent pathology and characterization of fluid collections. Clinical Information: Evaluation of left upper quadrant pigtail drain for possible removal. Comparison: CT abdomen/pelvis without contrast dated 08/29/2025. Findings: Lung bases: Interval development of small bilateral pleural effusions with dependent subsegmental atelectasis in the lower lobes. Previously described tiny calcified nodules are not conspicuous on the current noncontrast images. Liver: Morphologic features of cirrhosis are unchanged. No focal hepatic lesion identified on this noncontrast study. Gallbladder and bile ducts: Decompressed gallbladder with a cholecystostomy tube in place, stable. No biliary ductal dilatation. Pancreas: Normal contour without peripancreatic inflammatory change. Spleen: Infrasplenic fluid collection adjacent to the splenic inferior pole measuring approximately 2.7 ??? 3.5 ??? 6.4 cm (previously 2.7 ??? 2.2 ??? 5.1 cm), with a pigtail drainage catheter in situ and mild adjacent fat stranding. Adrenal glands: Normal morphology bilaterally. Kidneys and ureters: Kidneys within normal size and contour; no hydronephrosis or hydroureter; no nephrolithiasis. Urinary bladder: Dueñas catheter in place with small intraluminal gas foci, likely iatrogenic; bladder otherwise unremarkable. Stomach and bowel: Right iliac fossa ileostomy defect ( 2.4 cm) and postoperative bowel changes, stable. No evidence of bowel obstruction, enteritis, or colitis. Peritoneum and mesentery: New minimal free fluid predominantly along the greater curvature of the stomach with mild mesenteric edema (anasarca). No free intraperitoneal air. Lymph nodes: No pathologic abdominopelvic lymphadenopathy. Vasculature: Abdominal aorta normal in caliber. Abdominal wall/soft tissues: Expected postoperative changes at the ostomy site; otherwise unremarkable. Osseous structures: No acute or aggressive osseous abnormality; mild degenerative changes in the visualized spine. Impression: * Infrasplenic collection with indwelling pigtail drain has increased in size compared with 08/29/2025 (now 2.7 ??? 3.5 ??? 6.4 cm from 2.7 ??? 2.2 ??? 5.1 cm) with mild surrounding fat stranding???ongoing collection persists. Drain removal is not advised at this time based on interval enlargement; recommend interventional radiology review for catheter position/patency, consideration of catheter upsizing or repositioning, and correlation with output and culture. * New small bilateral pleural effusions with dependent basilar atelectasis. Monitor clinically; consider diuresis or follow-up imaging as indicated. * Cirrhotic hepatic morphology, unchanged. * Decompressed gallbladder with cholecystostomy tube in place, stable; no biliary ductal dilatation. * Minimal ascites and mild mesenteric edema (anasarca), new from prior. * Dueñas catheter with small intravesical gas, likely iatrogenic. * No bowel obstruction, hydronephrosis, or nephrolithiasis identified. /[place] DICTATED BY: EDWIGE LEDESMA MD DATE: 09/01/252258 ELECTRONICALLY SIGNED BY: EDWIGE LEDESMA MD DATE: 09/01/252258 PATIENT: DALLAS BUCHANAN MR#: [id number] : 1970 SEX: F AGE: 55 LOCATION: 2CV ORDER 1130 STATUS: ADM IN REPORT#: [id number] SERVICE 1127 REASON: Left lower lung lobe opacities ORDERING PHYSICIAN: SONJA PERALTA MD PROCEDURE: CHEST WO - CT CHEST W/O CONTRAST EXAM: CT CHEST WITHOUT INTRAVENOUS CONTRAST Technique: Helical computed tomography of the chest from thoracic inlet through the upper abdomen without intravenous contrast, with axial images and coronal/sagittal reformations. Dose optimization performed in accordance with ALARA. Clinical Information: Left lower lung lobe opacities. Comparison: Chest radiograph dated 09/01/2025 at 05:46 EDT. Findings: Soft tissues: Unremarkable. Lungs and large airways: Central airways are patent. Subsegmental consolidation in the posterior segments of both lower lobes. Additional subsegmental consolidation in the superior segment of the left upper lobe. Linear atelectatic bands in the superior lingular segment and posterior segment of the left upper lobe. A calcified pulmonary nodule measures 5 mm in the right lower lobe (series 3, image 29). Pleura: Minimal bilateral pleural effusions. No pneumothorax. Heart and pericardium: Cardiac size within normal limits. No pericardial effusion. Aorta: Normal course and caliber on this noncontrast study. Pulmonary arteries: Evaluation limited without contrast; no large central filling defect is seen on this noncontrast exam. Lymph nodes: No pathologically enlarged mediastinal or hilar lymph nodes. Mediastinum and toya: No mass identified. Chest wall and lower neck: No acute abnormality. Bones/joints: No acute osseous abnormality. Upper abdomen: Visualized portions without acute abnormality; detailed abdominal findings are reported separately. Impression: * Subsegmental consolidation in the posterior segments of both lower lobes and in the superior segment of the left upper lobe with minimal bilateral pleural effusions???most compatible with multifocal atelectasis versus infection/aspiration in the appropriate clinical context. Recommend clinical correlation and short-interval follow-up chest imaging to document resolution. * Benign-appearing calcified pulmonary nodule in the right lower lobe measuring 5 mm (series 3, image 29), consistent with a granuloma; no additional suspicious nodules identified. * No pneumothorax or acute cardiomediastinal abnormality identified on this noncontrast examination. /[place] DICTATED BY: EDWIGE LEDESMA MD DATE: 09/01/252255 ELECTRONICALLY SIGNED BY: EDWIGE LEDESMA MD DATE: 09/01/252255 PATIENT: DALLAS BUCHANAN MR#: [id number] : 1970 SEX: F AGE: 55 LOCATION: 2CV ORDER 99 STATUS: ADM IN REPORT#: [id number] SERVICE 06 REASON: hypoxic ORDERING PHYSICIAN: LOBO RICKS PROCEDURE: CXR1VW - CHEST 1VW EXAM: CR Chest, 1 View (Portable, Supine). CLINICAL HISTORY: Chest pain. COMPARISON: CR Chest, 2 View ??? 08/31/2025 01:13 AM EDT. FINDINGS: LUNGS: Mild prominence of bronchovascular markings in bilateral lower zone. Area of haziness in left lower zone. Lungs are clear. No focal consolidation, pulmonary edema, or acute infiltrate. PLEURAL SPACES: No pleural effusion or pneumothorax. MEDIASTINUM: Cardiac size and mediastinal contours within normal limits. Right internal jugular central venous catheter remains in similar position with the tip projecting over the distal superior vena cava, unchanged from prior. BONES: No acute osseous abnormality. LINES/DEVICES: Right IJ central venous catheter as described. Monitoring leads noted. No new devices identified. IMPRESSION: * Stable position of right IJ central venous catheter with tip at distal SVC. * Area of haziness in left lower zone likely airspace opacity-New finding compared to previous radiograph. * Mild prominence of bronchovascular markings in bilateral lower zone-New finding compared to previous radiograph. Signed By: EDWIGE LEDESMA M.D. /[place] DICTATED BY: TOBI LEAHY MD DATE: 09/01/251518 ELECTRONICALLY SIGNED BY: TOBI LEAHY MD DATE: 09/01/251518 PATIENT: DALLAS BUCHANAN MR#: [id number] : 1970 SEX: F AGE: 55 LOCATION: 2CV ORDER 2300 STATUS: ADM IN REPORT#: [id number] SERVICE 0600 REASON: hypoxic ORDERING PHYSICIAN: LOBO RICKS PROCEDURE: CXR1VW - CHEST 1VW EXAM: CR Chest, 1 View (Portable, Supine). CLINICAL HISTORY: Chest pain. COMPARISON: CR Chest, 2 View ??? 08/30/2025 01:13 AM EDT. FINDINGS: LUNGS: Lungs are clear. No focal consolidation, pulmonary edema, or acute infiltrate. PLEURAL SPACES: No pleural effusion or pneumothorax. MEDIASTINUM: Cardiac size and mediastinal contours within normal limits. Right internal jugular central venous catheter remains in similar position with the tip projecting over the distal superior vena cava, unchanged from prior. BONES: No acute osseous abnormality. LINES/DEVICES: Right IJ central venous catheter as described. Monitoring leads noted. No new devices identified. IMPRESSION: * Stable position of right IJ central venous catheter with tip at distal SVC. * No pneumothorax or acute cardiopulmonary abnormality. * No significant interval change compared with 08/30/2025 . /[place] DICTATED BY: EDWIGE LEDESMA MD DATE: 08/31/251851 ELECTRONICALLY SIGNED BY: EDWIGE LEDESMA MD DATE: 08/31/251851 PATIENT: DALLAS BUCHANAN MR#: [id number] : 1970 SEX: F AGE: 55 LOCATION: 2CV ORDER 0929 STATUS: ADM IN REPORT#: [id number] SERVICE 1700 REASON: severe renal failure ORDERING PHYSICIAN: BRADEN CONTRERAS MD PROCEDURE: RENAL - US RENAL SONOGRAM EXAM: RENAL AND URINARY BLADDER ULTRASOUND Technique: Grayscale and color Doppler sonography of both kidneys and the urinary bladder was performed. Study quality is adequate. Evaluation of the bladder and ureteral jets is limited by decompression from an indwelling catheter. Clinical Information: Severe renal failure. Findings: Right kidney: Measures 10.3 ??? 5.3 ??? 4.2 centimeters. Renal cortical thickness and echogenicity are within expected limits for technique. No focal mass is identified. No hydronephrosis. No renal calculi. No perinephric fluid collection. Left kidney: Measures 11.0 ??? 4.8 ??? 3.2 centimeters. The renal parenchyma is diffusely increased in echogenicity relative to the adjacent liver and spleen. No focal mass is identified. No hydronephrosis. No renal calculi. No perinephric fluid collection. Urinary bladder: Decompressed with a Dueñas catheter in situ. Bladder wall measures approximately 3 millimeters, which may appear relatively thick due to underdistention. No intraluminal mass or debris is identified on the limited evaluation. Impression: * Left kidney demonstrates increased parenchymal echogenicity, a nonspecific finding commonly associated with medical renal disease in the setting of renal failure. * No hydronephrosis or renal calculi identified bilaterally. * Decompressed urinary bladder with Dueñas catheter in place; apparent wall thickening likely related to underdistention. /[place] DICTATED BY: EDWIGE LEDESMA MD DATE: 08/29/252248 ELECTRONICALLY SIGNED BY: EDWIGE LEDESMA MD DATE: 08/29/252248 PATIENT: DALLAS BUCHANAN MR#: [id number] : 1970 SEX: F AGE: 55 LOCATION: 2CV ORDER 154 STATUS: ADM IN REPORT#: [id number] SERVICE 1539 REASON: central line placement ORDERING PHYSICIAN: LOBO RICKSReema PROCEDURE: CXR1VW - CHEST 1VW EXAM: CR Chest, 2 View. CLINICAL HISTORY: central line placement COMPARISON: None provided. FINDINGS: Right IJ central venous catheter tip projects at the distal SVC. Right peripheral line overlies expected location of the right axillary vessels. LUNGS: The lungs show no infiltrate or other acute finding. Mild left basilar atelectasis. PLEURAL SPACES: No pleural effusion or pneumothorax. MEDIASTINUM: Cardiac size and mediastinal contours within normal limits. BONES: No aggressive appearing osseous lesion seen. Pigtail drainage catheter overlies the right upper quadrant. IMPRESSION: 1. Right IJ central venous catheter tip appropriately positioned in the distal SVC. 2. No acute cardiopulmonary findings. /[place] DICTATED BY: ELDON MILLER Jr., MD DATE: 08/29/251744 ELECTRONICALLY SIGNED BY: ELDON MILLER Jr., MD DATE: 08/29/251744 PATIENT: DALLAS BUCHANAN MR#: [id number] : 1970 SEX: F AGE: 55 LOCATION: 2CV ORDER 9 STATUS: ADM IN REPORT#: [id number] SERVICE 7 REASON: coffee ground emesis, hx of abdominal drain, nausea, vomiting, hx of cirrho ORDERING PHYSICIAN: BRADEN CONTRERAS MD PROCEDURE: ABD PEL WO - CT ABDOMEN/PELVIS W/O CONTRAST EXAM: CT Abdomen and Pelvis Without IV contrast CLINICAL HISTORY: coffee ground emesis, hx of abdominal drain, nausea, vomiting, hx of cirrho TECHNIQUE: Axial computed tomography images of the abdomen and pelvis without intravenous contrast. CONTRAST: No IV contrast. COMPARISON: Study dated 08/23/25. FINDINGS: LUNG BASES: Tiny calcified nodules in the posterior basal segment of the right lower lobe. There is mild dependent airspace disease within the bilateral lower lobes that is presumed to reflect atelectasis. No pleural effusions are seen. LIVER: There is cirrhotic hepatic morphology. Several small esophageal varices are noted. GALLBLADDER AND BILE DUCTS: The gallbladder is decompressed with a cholecystostomy tube in place. No biliary ductal dilatation is evident. PANCREAS: Unremarkable. SPLEEN: 2.7 x 2.2 x 5.1 cm infrasplenic collection with adjacent fat stranding and pigtail tube in place. ADRENAL GLANDS: Unremarkable. KIDNEYS, URETERS, AND BLADDER: The kidneys appear within normal limits. There is no hydronephrosis or hydroureter. No urinary calculi are seen. Dueñas's bulb in the urinary bladder with few air foci. STOMACH AND BOWEL: 2.4 cm ileostomy defect in the right iliac fossa and postoperative changes in the bowel loops. No evidence of bowel obstruction. No evidence suggesting enteritis or colitis. APPENDIX: No evidence of acute appendicitis on CT examination. PERITONEUM: No free fluid. No free air. LYMPH NODES: No lymphadenopathy is evident. REPRODUCTIVE: Unremarkable as visualized. VASCULATURE: No evidence of abdominal aortic aneurysm. BONES: No aggressive appearing osseous lesion. No acute osseous pathology evident. Mild degenerative changes in the spine. IMPRESSION: 1. Cirrhotic hepatic morphology. Several small esophageal varices are noted. 2. 2.7 x 2.2 x 5.1 cm infrasplenic collection with adjacent fat stranding and pigtail tube in place. 3. Cholecystostomy tube in decompressed gallbladder. 4. Ileostomy in right iliac fossa with postoperative changes. /[place] DICTATED BY: ELDON MILLER Jr., MD DATE: 08/29/251619 ELECTRONICALLY SIGNED BY: ELDON MILLER Jr., MD DATE: 08/29/251619 PATIENT: DALLAS BUCHANAN MR#: [id number] : 1970 SEX: F AGE: 55 LOCATION: EDHIP ORDER 6 STATUS: ADM IN REPORT#: [id number] SERVICE 5 REASON: sob ORDERING PHYSICIAN: MILAD WYNN MD PROCEDURE: CXR1VW - CHEST 1VW EXAM: CR Chest, 1 View. CLINICAL HISTORY: sob COMPARISON: None provided. FINDINGS: LUNGS: There is no mass, infiltrate, or acute pulmonary abnormality. Mild left basilar atelectasis and/or parenchymal scarring. PLEURAL SPACES: No evidence of pleural effusion or pneumothorax. MEDIASTINUM: Cardiac size and mediastinal contours within normal limits. BONES: No aggressive appearing osseous lesion seen. IMPRESSION: No acute cardiopulmonary pathology is evident. /[place] DICTATED BY: ELDON MILLER Jr., MD DATE: 08/29/251103 ELECTRONICALLY SIGNED BY: ELDON MILLER JDATE: 08/29/251103 ASSESSMENT: Severe hyperkalemia Anemia Acute renal failure Hyponatremia Acute upper GI bleeding- Hematemesis, dark output from ileostomy bag, POA, Improving Acute DVT of right axillary vein and right cephalic vein High output from ileostomy bag, not POA Hemorrhagic shock versus hypovolemic shock, POA, Resolved Hypovolemic hypochloremic hyponatremia, POA, Resolved Severe hyperkalemia, POA, Resolved Hyperammonemia, POA, Improving Lactic acidosis, POA, Resolved Hyperphosphatemia, POA, Resolved Starvation Ketoacidosis, POA Rule out occult sepsis, POA Recent extended hospitalization in [facility], 07/20/2025- 08/25/2025 for sepsis, acute abdomen, POA Severe Dehydration, POA, Improving History of esophageal varices, POA Acute Decompensated liver cirrhosis, POA Hx of acute cholecystitis, s/p cholecystostomy tube placement on 08/02/2025. Perisplenic abscess, s/p CT-guided drainage placement on 08/09/2025. 2.7 x 2.2 x 5.1 cm infrasplenic collection History of gastritis, POA Hx of Generalized peritonitis with ESBL E coli infection, POA Moderate Protein calorie malnutrition POA History of bilious peritonitis with small colonic anastomosis perforation s/p diagnostic laparoscopy, abdominal washout, ileostomy creation by Dr. Jhaveri, 07/21/2025 Hx of DM II, POA Recent colovesical fistula repair with sigmoid colon resection and anastomosis on PLAN: Labs, diagnostic, radiologic exams reviewed and interpreted by myself and supervising physician. We have reviewed external records in detail Diet as per primary/surgery team Continue with sodium chloride tablets Require close monitoring of renal function and electrolytes Order CBC, CMP, and electrolytes in am Continue with antibiotics BiPAP as necessary, for respiratory distress Monitor blood pressure adjust medication doses as needed Avoid hypotensive episodes May use Dilaudid 0.5 mg IV every 6 hours as needed for severe pain Monitor blood sugars Strict intake, output, and daily weight should be monitored Please renally adjust medications Avoid nephrotoxic and nonsteroidal drugs Avoid contrast if possible Will continue to monitor renal function, anemia, electrolytes Treatment plan discussed with patient Questions were answered We have discussed with the other team physicians in detail about the care plan We will continue to monitor the patient closely ATTESTATION BY PHYSICIAN I have seen and examined the patient. I reviewed the documentation, medical decision making, and treatment plan as noted by the mid-level provider above. I agree with the findings and plan of care. CIELO PORTILLO MD, [facility] Sep 08, 2025 14:35
[2025-09-08 16:00] VITALS: BP 129/77; PULSE 83; RESP 18; TEMP 97.7
--- NOTE | 2025-09-08 16:00 | PN ---
Interval history: This 55-year-old female seen in her room resting comfortably Patient is still continues to have bloody output from ostomy Ostomy bag with a better seal after abdominal binder added Hemoglobin remained stable today 9.7 Anticoagulation for DVT management has been changed No other acute events reported at this time Patient tolerating diet Patient with reports of anxiety overnight noting bloody output from ostomy Physical exam General: Awake alert and oriented Heart: Regular rate and rhythm} Lungs: Clear to auscultation no distress Abdomen: [Soft, nontender, nondistended ostomy productive Assessment and Plan: This point in time we will await Hematology recommendations Nursing to reach out to GI for concerning GI bleed Patient to continue with diet as tolerated Patient encouraged to ambulate Await CT imaging tomorrow for potential percutaneous drain removal Dr. Gann to be updated in patient's status Surgical case has been discussed with my supervising physician in the above plan was formulated and agreed upon We appreciate the hospitalist team for us to participate in patient's care. Greater than 45 minutes of time spent patient, reviewing chart, working on documentation Vitals/Labs Vital Signs Date Time Temp Pulse Resp B/P (MAP) Pulse Ox O2 Delivery O2 Flow Rate FiO2 09/08/25 09:16 97 Room Air* 0 21 09/08/25 08:00 98.2 78 18 122/69 Laboratory Tests 09/08/25 01:50 09/08/25 10:18 Medications Current Medications Octreotide Acetate 50 mcg ONCE ONCE IV Last administered on 08/29/25at 09:02; Start 08/29/25 at 08:30; Stop 08/29/25 at 08:31; Status DC Octreotide Acetate 1250 mcg/ Sodium Chloride 250 ml @ 0 mls/hr PROTOCOL IV Last administered on 08/31/25at 10:18; Start 08/29/25 at 08:30; Stop 09/01/25 at 10:32; Status DC Pantoprazole Sodium 80 mg ONCE ONCE IVP Last administered on 08/29/25at 09:02; Start 08/29/25 at 08:30; Stop 08/29/25 at 08:31; Status DC Pantoprazole Sodium 80 mg/ Sodium Chloride 100 ml @ 10 mls/hr Q10H IV Last administered on 09/01/25at 05:50; Start 08/29/25 at 08:30; Stop 09/01/25 at 10:32; Status DC Promethazine HCl 25 mg ONCE ONCE IM Last administered on 08/29/25at 09:07; Start 08/29/25 at 08:30; Stop 08/29/25 at 08:33; Status DC Sodium Chloride 1,000 ml @ 999 mls/hr Q1H1M IV; Start 08/29/25 at 09:30; Stop 08/29/25 at 09:06; Status DC Calcium Gluconate 1 gm/Sodium Chloride 110 ml @ 110 mls/hr ONCE ONCE IV Last administered on 08/29/25at 09:41; Start 08/29/25 at 09:30; Stop 08/29/25 at 10:29; Status DC Dextrose 50 ml ONCE ONCE IV; Start 08/29/25 at 09:30; Stop 08/29/25 at 09:27; Status DC Insulin Human Regular 5 unit ONCE ONCE IV Last administered on 08/29/25at 09:57; Start 08/29/25 at 09:30; Stop 08/29/25 at 09:31; Status DC Albuterol Sulfate 10 mg ONCE ONCE IH Last administered on 08/29/25at 09:37; Start 08/29/25 at 09:30; Stop 08/29/25 at 09:31; Status DC Lactulose 200 gm ONCE ONCE KS; Start 08/29/25 at 09:30; Stop 08/29/25 at 09:36; Status DC Calcium Gluconate 1 gm ONCE IV; Start 08/29/25 at 09:30; Stop 08/29/25 at 09:23; Status DC Sodium Chloride 1,000 ml @ 125 mls/hr Q8H IV; Start 08/29/25 at 09:30; Stop 08/29/25 at 09:57; Status DC Insulin Human Regular 5 unit ONCE IV; Start 08/29/25 at 09:30; Stop 08/29/25 at 09:25; Status DC Dextrose 50 ml ONCE ONCE IV Last administered on 08/29/25at 09:47; Start 08/29/25 at 09:30; Stop 08/29/25 at 09:31; Status DC Sodium Bicarbonate 50 meq ONCE ONCE IV Last administered on 08/29/25at 09:47; Start 08/29/25 at 09:30; Stop 08/29/25 at 09:31; Status DC Pharmacy Profile Note 1 each ONCE MISC; Start 08/29/25 at 09:30; Stop 08/29/25 at 09:35; Status DC Ondansetron HCl 4 mg Q6H PRN IVP Last administered on 09/07/25at 22:27; Start 08/29/25 at 09:30; Stop 09/28/25 at 09:29 Thiamine HCl 200 mg Q12H IVP Last administered on 09/02/25at 08:56; Start 08/29/25 at 09:30; Stop 09/02/25 at 09:30; Status DC Meropenem 500 mg Q24H IVPB Last administered on 08/30/25at 09:46; Start 08/29/25 at 10:00; Stop 08/31/25 at 09:59; Status DC Sodium Chloride 1,000 ml @ 0 mls/hr ONCE ONCE IV Last administered on 08/29/25at 09:47; Start 08/29/25 at 10:00; Stop 08/29/25 at 10:01; Status DC Dextrose 50 ml AD PRN IV; Start 08/29/25 at 10:00; Stop 09/28/25 at 09:59 Glucagon 1 mg AD PRN IM; Start 08/29/25 at 10:00; Stop 09/28/25 at 09:59 Acetaminophen 650 mg Q6H PRN PO; Start 08/29/25 at 10:00; Stop 09/28/25 at 09:59 Albuterol 1 udvial Q6H PRN IH; Start 08/29/25 at 10:00; Stop 09/28/25 at 09:59 Sodium Bicarbonate 50 meq ONCE ONCE IV Last administered on 08/29/25at 10:12; Start 08/29/25 at 10:00; Stop 08/29/25 at 10:05; Status DC Sodium Bicarbonate 150 meq/Dextrose 1,150 ml @ 125 mls/hr Q9H12M IVP Last administered on 08/30/25at 08:07; Start 08/29/25 at 10:00; Stop 08/30/25 at 10:12; Status DC Insulin Human Regular INSULIN SLIDING SCAL... ACHS SQ Last administered on 09/06/25at 16:27; Start 08/29/25 at 11:30; Stop 09/28/25 at 11:29 Sodium Chloride 1,000 ml @ 0 mls/hr ONCE ONCE IV Last administered on 08/29/25at 13:44; Start 08/29/25 at 11:00; Stop 08/29/25 at 11:06; Status DC Sodium Chloride 1,000 ml @ 200 mls/hr PROTOCOL IV; Start 08/29/25 at 12:30; Stop 08/29/25 at 16:05; Status DC Magnesium Sulfate 50 ml @ 0 mls/hr PROTOCOL IV; Start 08/29/25 at 12:30; Stop 08/29/25 at 16:05; Status DC Insulin Human Regular 100 unit/ Sodium Chloride 101 ml @ 0 mls/hr PROTOCOL IV; Start 08/29/25 at 12:30; Stop 08/29/25 at 16:05; Status DC Dextrose/Sodium Chloride 1,000 ml @ 0 mls/hr AD IV; Start 08/29/25 at 12:30; Stop 08/29/25 at 16:05; Status DC Potassium Chloride 100 ml @ 50 mls/hr AD PRN IV Last administered on 09/02/25at 06:26; Start 08/29/25 at 12:30; Stop 09/28/25 at 12:29 Lidocaine HCl 20 ml STK-MED ONCE .ROUTE; Start 08/29/25 at 14:24; Stop 08/29/25 at 14:25; Status DC Lidocaine HCl 20 ml STK-MED ONCE .ROUTE Last administered on 08/29/25at 15:59; Start 08/29/25 at 14:25; Stop 08/29/25 at 14:25; Status DC Sodium Chloride 1,000 ml @ 0 mls/hr Q0M IV; Start 08/29/25 at 16:00; Stop 08/29/25 at 16:03; Status DC Sodium Chloride 1,000 ml @ 0 mls/hr Q0M IV Last administered on 08/29/25at 16:10; Start 08/29/25 at 16:00; Stop 09/01/25 at 08:01; Status DC Sodium Chloride 250 ml @ 0 mls/hr AD IV; Start 08/29/25 at 17:30; Stop 09/28/25 at 17:29 Sodium Chloride 1,000 ml @ 0 mls/hr ONCE ONCE IV Last administered on 08/29/25at 19:57; Start 08/29/25 at 17:30; Stop 08/29/25 at 17:35; Status DC Sodium Chloride 1,000 ml @ 150 mls/hr Q6H40M IV Last administered on 08/31/25at 16:16; Start 08/29/25 at 18:30; Stop 09/01/25 at 09:29; Status DC Dexmedetomidine/ Sodium Chloride 400 mcg STK-MED ONCE IV; Start 08/29/25 at 19:56; Stop 08/29/25 at 19:56; Status DC Norepinephrine Bitartrate 32 mg/ Sodium Chloride 250 ml @ 0 mls/hr Q0M STAT IV Last administered on 08/29/25at 21:13; Start 08/29/25 at 21:01; Stop 08/29/25 at 21:07; Status DC Magnesium Sulfate 50 ml @ 0 mls/hr PROTOCOL IV Last administered on 09/08/25at 04:26; Start 08/30/25 at 10:00; Stop 09/29/25 at 09:59 Morphine Sulfate 2 mg ONCE ONCE IVP Last administered on 08/31/25at 02:24; Start 08/31/25 at 02:30; Stop 08/31/25 at 02:31; Status DC Potassium Phosphate 250 ml @ 42 mls/hr PROTOCOL ONCE IV Last administered on 08/31/25at 10:11; Start 08/31/25 at 09:00; Stop 08/31/25 at 14:57; Status DC Multivitamins/ Minerals 10 ml/ Chromium/Copper/ Manganese/Zinc 3 ml/Amino Acids/ Electrolytes/ Dextrose 2,000 ml @ 83 mls/hr ONCE ONCE IV Last administered on 08/31/25at 20:53; Start 08/31/25 at 20:00; Stop 09/01/25 at 11:25; Status DC Midodrine 10 mg BID PO; Start 09/01/25 at 09:00; Stop 08/31/25 at 18:36; Status DC Midodrine 10 mg ONCE ONCE PO Last administered on 08/31/25at 18:36; Start 08/31/25 at 18:30; Stop 08/31/25 at 18:31; Status DC Midodrine 10 mg TID PO Last administered on 09/08/25at 09:13; Start 09/01/25 at 09:00; Stop 10/01/25 at 08:59 Pharmacy Profile Note 1 each ONCE MISC; Start 08/31/25 at 23:30; Stop 08/31/25 at 23:17; Status DC Meropenem 500 mg Q24H IVPB Last administered on 09/07/25at 22:27; Start 08/31/25 at 23:30; Stop 09/10/25 at 23:29 Morphine Sulfate 2 mg Q4H PRN IVP Last administered on 09/05/25at 04:28; Start 09/01/25 at 05:30; Stop 09/05/25 at 13:19; Status DC Propofol 200 mg STK-MED ONCE IV; Start 09/01/25 at 09:53; Stop 09/01/25 at 09:53; Status DC Ketamine HCl 50 mg STK-MED ONCE .ROUTE; Start 09/01/25 at 09:53; Stop 09/01/25 at 09:53; Status DC Pantoprazole Sodium 40 mg BID IVP Last administered on 09/03/25at 09:16; Start 09/01/25 at 21:00; Stop 09/03/25 at 14:32; Status DC Lactulose 20 gm TID PO Last administered on 09/05/25at 08:06; Start 09/01/25 at 14:00; Stop 09/05/25 at 10:44; Status DC Multivitamins/ Minerals 10 ml/ Amino Acids/ Electrolytes/ Dextrose 2,000 ml @ 83 mls/hr ONCE ONCE IV Last administered on 09/01/25at 22:13; Start 09/01/25 at 20:00; Stop 09/02/25 at 20:05; Status DC Magnesium Sulfate 50 ml @ 0 mls/hr PROTOCOL IV; Start 09/02/25 at 13:30; Stop 09/02/25 at 13:04; Status DC Magnesium Sulfate 50 ml @ 0 mls/hr PROTOCOL IV; Start 09/03/25 at 08:00; Stop 09/03/25 at 07:43; Status DC Pantoprazole Sodium 40 mg DAILY PO Last administered on 09/05/25at 08:06; Start 09/04/25 at 09:00; Stop 09/06/25 at 00:03; Status DC Duloxetine HCl 30 mg BID PO Last administered on 09/08/25at 09:13; Start 09/03/25 at 21:00; Stop 10/03/25 at 20:59 Psyllium Hydrophilic Mucilloid 1 tbs TID PO Last administered on 09/08/25 09:12; Start 09/04/25 at 14:00; Stop 10/04/25 at 13:59 Cyclobenzaprine HCl 5 mg TID PRN PO; Start 09/05/25 at 11:00; Stop 10/05/25 at 10:59 Home Med (Medroxyprogesterone Acetate (Provera) 1 TAB) DAILY PO; Start 09/06/25 at 09:00; Stop 10/06/25 at 08:59 Atorvastatin Calcium 5 mg HS PO Last administered on 09/07/25at 20:58; Start 09/05/25 at 21:00; Stop 10/05/25 at 20:59 Lactulose 20 gm BID PO Last administered on 09/07/25at 20:59; Start 09/05/25 at 21:00; Stop 10/01/25 at 13:59 Morphine Sulfate 1 mg Q4H PRN IVP Last administered on 09/06/25at 23:40; Start 09/05/25 at 13:30; Stop 09/07/25 at 11:35; Status DC Lactated Ringer's 1,000 ml @ 100 mls/hr Q10H IV Last administered on 09/06/25at 08:35; Start 09/06/25 at 00:00; Stop 09/06/25 at 18:44; Status DC Pantoprazole Sodium 40 mg BID IVP Last administered on 09/08/25at 09:12; Start 09/06/25 at 09:00; Stop 10/06/25 at 08:59 Enoxaparin Sodium 1 unit Q12H SQ; Start 09/06/25 at 13:30; Stop 09/06/25 at 13:21; Status DC Enoxaparin Sodium 60 mg Q12H SQ Last administered on 09/07/25at 14:29; Start 09/06/25 at 13:30; Stop 09/07/25 at 15:03; Status DC Folic Acid 1 mg DAILY PO Last administered on 09/08/25at 09:13; Start 09/08/25 at 09:00; Stop 10/08/25 at 08:59 Vitamin B Complex 1,000 mcg DAILY PO Last administered on 11/5/25at 09:13; Start 09/08/25 at 09:00; Stop 10/08/25 at 08:59 Sodium Bicarbonate 1,300 mg TID PO Last administered on 09/08/25at 09:13; Start 09/07/25 at 14:00; Stop 09/08/25 at 18:00 Morphine Sulfate 0.5 mg Q4H PRN IVP Last administered on 09/08/25at 04:27; Start 09/07/25 at 13:30; Stop 09/08/25 at 09:11; Status DC Apixaban 10 mg BID PO Last administered on 09/07/25at 22:06; Start 09/07/25 at 22:00; Stop 09/08/25 at 01:42; Status DC Apixaban 10 mg BID PO; Start 09/08/25 at 09:30; Stop 09/08/25 at 10:13; Status DC Acetaminophen/ Hydrocodone Bitart 2 tab Q4H PRN PO; Start 09/08/25 at 09:30; Stop 09/13/25 at 09:29 Apixaban 5 mg BID PO; Start 09/08/25 at 21:00; Stop 10/08/25 at 20:59 BENEDICTO OBRIEN Jr. PAC Sep 08, 2025 16:00
[2025-09-08] MEDS: HYDROcodone/APAP 5/325 1 TAB TABLET PO PRN (17:13)
[2025-09-08 20:00] VITALS: BP 159/75; PULSE 76; RESP 20; TEMP 97.8; O2SAT 96
[2025-09-08] MEDS: MELATONIN 5 MG TABLET PO ONE (21:35)
[2025-09-09] VITALS: BP 123/69; PULSE 72; RESP 20; TEMP 98
[2025-09-09 04:08] VITALS: BP 111/65; PULSE 82; RESP 20; TEMP 97.8
[2025-09-09 04:55] LABS: IMMATURE GRANULOCYTE ABSOLUTE 0.02 K/uL (0-1); NUCLEATED RED BLOOD CELLS 0.0 % (0.0-0.19); PLATELET COUNT (AUTO) 139 K/uL (130-400); RED BLOOD CELL COUNT(AUTO) 2.95 MIL/uL (4.00-5.50); RED CELL DISTRIBUTION WIDTH 18.2 % (11.0-15.5); WHITE BLOOD COUNT (AUTO) 3.0 K/uL (4.8-10.8)
[2025-09-09 05:12] LABS: CREATININE 0.7 mg/dL (0.5-1.0); GLOMERULAR FILTR. RATE CALC 101.0 mL/min (>90); GLUCOSE,RANDOM 84.0 mg/dL (70-105); SODIUM SERUM 137.0 mmol/L (136-145); UREA NITROGEN, BLOOD 13.0 mg/dL (7-18)
[2025-09-09 05:40] LABS: EOSINOPHILS % (MANUAL) 7 % (1-6); LYMPHOCYTES % (MANUAL) 26 % (22-44); MAN.DIFF COMMENT-IMPRESSION MANUAL DIFFERENTIAL; MONOCYTES % (MANUAL) 6 % (2-9); SEGMENTED NEUTROPHILS % 61 % (40-70)
[2025-09-09 05:42] LABS: PLATELET MORPHOLOGY COMMENT ADEQUATE
[2025-09-09 08:00] VITALS: BP 114/66; PULSE 86; RESP 18; TEMP 98; O2SAT 97
--- NOTE | 2025-09-09 08:00 | NUR ---
ILEOSTOMY CHANGE ILEOSTOMY CHANGED. LEAKAGE FROM LEFT SIDE OF APPLIANCE. STOMA CARE PROVIDED. TWO PIECE APPLIANCE APPLIED. ABDOMINAL BINDER IN PLACE. PATIENT TOLERATED WELL NO COMPLAINTS OF PAIN OR DISCOMFORT.
--- NOTE | 2025-09-09 08:30 | NUR ---
MIDLINE DRESSING CHANGED. DRESSING CHANGED WITHOUT COMPLICATIONS.
[2025-09-09] MEDS: SODIUM BICARBONATE 650 MG TAB PO SCH (10:38)
--- NOTE | 2025-09-09 11:50 | PN ---
[facility] PROGRESS NOTE Date of Service: Sep 09, 2025 Time of Service: 11:50 SUBJECTIVE: As per admission notes "50-year-old female with underlying history of type 2 diabetes mellitus, history of liver cirrhosis, prior history of esophageal varices requiring banding in May,, history of robotic sigmoid resection with takedown of colovesical fistula who was recently hospitalized in [facility] from 07/20/2025 - 08/25/2025 patient was found to have bilious peritonitis with 2 mm perforation of colonic anastomosis requiring diagnostic laparoscopy, abdominal washout and drain placement with creation of diverting loop ileostomy. Patient was hospitalized for about one month and subsequently required IR guided drain placement as well. She was just discharged from the hospital on 08/25/2025. Patient's daughter reports that patient was having nausea and vomiting with poor oral intake at home. She started to have coffee-ground emesis today and she also noticed some right streaks of blood with a coffee-ground emesis. Stool has also been dark in the ileostomy bag. Patient is having moderate intensity abdominal pain as well. She has not been taking any NSAIDs. Daughter reports that patient has been very weak since her discharge in very debilitated. Patient denies active chest pain. Denies active shortness of breath. On presentation to the hospital, patient was noted to be afebrile with T-max of 97.5 F, heart rate of 100, blood pressure of 127/91. [place] [address], hemoglobin of 16.4, platelet count of 783504. BMP was repeated twice, BMP showed sodium of 117, potassium 7.0, chloride of 88, CO2 of seven, BUN of 83, creatinine 5.0, blood glucose of 99, calcium 10.4. Blood gas showed pH of 7.28, bicarb of close to eight, CO2 of 18, lactic acid of three. Patient will be admitted to ICU. Patient is presenting with severe renal failure with hyperkalemia and severe metabolic acidosis. Patient also with concerns for upper GI bleeding with coffee-ground emesis. Patient remains critically ill consultation with Intensive Care, Nephrology, GI will be requested. We we will obtain a CT abdomen pelvis without contrast for further evaluation as well. Patient is critically ill. Plan of care was discussed with patient and daughter at bedside" 08/30/2025 Patient was seen and examined at bedside. Her blood pressure has been low, 88/54, heart rate 86. She is currently on Levophed 0.2 Mcg, octreotide, Protonix, sodium bicarbonate drip. She received 2nd hemodialysis session yesterday. As per Nephrology, she will continue to receive dialysis inpatient. Her high anion gap metabolic acidosis is improving with sodium 134, carbon dioxide 31, chloride 96. Her creatinine has trended down from 5-1.8. General surgery consult is on board and we will follow up with their recommendations. Additionally, in the light of history of liver cirrhosis with esophageal varices, her recent hematemesis will be evaluated with GI consult and possible endoscopy. We discussed this with the patient and her family members present besides. Patient is started on Merrem and blood culture, urine cultures show no growth so far. Her lactic acid has trended down from 3.1 to 2.1. 08/31/2025 Patient was seen and examined at bedside in room 214. She continues to be on Levophed 0.1 which is being weaned off. She is also on Sandostatin and Protonix drip. Patient complained of mild pain along the sides of her drain but denied any nausea or episode of vomiting since Saturday. Minimal drainage was noted. Sodium bicarb was discontinued as per Nephrology. Her lab markers have improved with sodium 141, chloride 104, bicarb 32, creatinine 1, BUN 16, ammonia 34. Her urine sodium was less than 20 consistent with prerenal CYNTHIA. We are pending blood and urine culture results. Her total output in the past24 hours has been optimal, 2069. She is on sodium chloride 150 mL/hour. We are following gastroenterology recommendations of possible upper endoscopy in the morning if patient condition remains stable. 09/01/2025 Patient was seen and examined at bedside. She is off vasopressor support and is hemodynamically stable. Her chest x-ray showed opacity in the left lower lobe and we will follow up with CT scan of chest. She is started on 2nd day of ppm today. She successfully underwent EGD which showed small, less than 5 mm, esophageal varices with scar in the lower 3rd of the esophagus. Patient was noted to have portal hypertensive gastropathy which was biopsied. Duodenum was normal during examination. Patient is receiving Merrem and her blood culture and urine cultures have shown no growth so far. Due to her elevated ammonia levels, she will be started on lactulose. We will proceed with caution with respect to normal saline as patient's BNP is elevated. 09/02/2025 The patient has been seen and examined earlier this morning during my rounding, case discussed with the RN, no acute events overnight, blood pressure 118/71, h eart rate of 56, afebrile, saturating normal on room air, CBC showing hemoglobin 8.5, hematocrit 36.8, WBC of 4.4, platelet count of 99, sodium 137, potassium 3.8, BUN of 18, creatinine 0.7, magnesium Lasix. Results of blood culture no growth after four days. Urine culture no growth. EGD reviewed, small less than 5 mm esophageal varices with scar in the lower 3rd of the esophagus. Patient with a bottle hypertensive gastropathy, status post biopsy, duodenum was normal during examination. Patient to be downgraded to the medical floor, continue banana bag, continue Protonix 40 mg IV b.i.d.. Plan for possible PEG tube placement. 09/03/2025 Patient was seen and examined at bedside. She has been advanced to GI soft bland diet which she is tolerating really well and having output in her ileostomy bag. As per surgeon, if she continues to tolerate diet, she may not require G-tube placement on discharge. Patient did not complain of any significant pain and seemed to be doing really well. Her cholecystostomy tube was removed but her splenic percutaneous tube is still in position and may require further IR intervention for repositioning due to persistent and mildly increased perisplenic fluid collection. She is receiving lactulose and her ammonia levels have gone down. Her acute renal failure continues to resolve and her vitals are also stable. No growth on urine and blood culture so far. We have shifted her from Protonix IV to p.o. as per GI recommendations. 09/04/2025 Patient was seen and examined at bedside in room 302. She has been tolerating GI soft bland diet, ileostomy output seems very high, liquid consistency and patient will be receiving fiber 3 times a day. Patient may require further IR intervention on Saturday for splenic drain reposition due to persistent and mildly increased perisplenic fluid collection. Vitals are stable, blood and urine culture shows no growth so far. 09/05/2025 Patient was seen and examined at bedside. She is tolerating GI soft bland diet, and her ileostomy output is high although liquid in consistency. We have decreased lactulose to b.i.d. from t.i.d. She continues on fiber 3 times a day as per surgery recommendations to bulk up the stool from the ileostomy in order to decrease the chances of further dehydration from high ileostomy output. Additionally, nodular swelling was appreciated in her right upper extremity which could be concerning for superficial venous thrombosis for which ultrasound Doppler of right upper extremity has been ordered. Patient is currently undergoing bladder training while being catheterized and we will proceed with Dueñas catheter removal as tolerated. 09/06/2025: Patient was seen and examined at bedside in room 302. She is tolerating GI soft bland diet and her ileostomy output has thicker consistency. Nurse reported that there was bright red blood in the ileostomy bag last night however this morning it was free from blood. Venous Doppler of the right upper extremity revealed deep vein thrombosis in right axillary vein and right cephalic vein, advice from Gastroenterology and Hematology was requested to start anticoagulation. Patient was started on Lovenox 1 mg/kg body weight as per Hematology recommendations. Patient will be continued on IV Protonix 40 mg b.i.d. 09/07/2025: Patient was seen and examined at bedside in room 302. Patient complained of generalized body pains however denied specific pain to the right arm or in abdomen. She is tolerating GI soft bland it and had to 25 mL of total output from ileostomy bag last night as per the primary nurse. During my evaluation in the morning there was no blood observed in the ileostomy bag however around 10:30 a.m. nurse reported blood in the ileostomy bag. Dr. Gonzalez recommended to continue Lovenox and bridge with apixaban 10 mg for 5 days and then transition to apixaban 5 mg for 3 months. Surgery recommended to continue current medical management and await management of DVT for potential discharge. However we will try to connect with them regarding removal of splenic drain or repositioning through IR Services. 09/08/2025: Patient was examined at bedside in room 302. Patient's family memb ers were present during the evaluation of helped us translate. Her ileostomy bag was clear. Patient attendants voiced that patient was more anxious about noticing blood in her ileostomy bag. Patient's hemoglobin and hematocrit have remained stable. Ileostomy bag has been replaced due to leakage. Patient and the family members were educated on proper care for ileostomy bag by the wound care team and was also reinforced that she needs to be on anticoagulation for venous thrombosis for preventing dislodging of clot to lungs and causing fatal pulmonary embolism. Risks and benefits were explained to the patient that patient will need anticoagulation and her hemoglobin will be monitored regularly. Was also encouraged to keep her food intake high and prevent dehydration. We will connect with surgical team for management of splenic catheter drain. 09/09/2025: Patient was examined at the bedside in room 302. Patient had no acute events over night but continues to have difficulty falling asleep and anxiety from the medical complexity. Her hemoglobin is stable 9.2 today. Patient has an abdominal binder in place with ostomy ring for better seal. Patient will undergo CT abdomen for evaluation of removal of splenic catheter drain today. We discontinued her Duloxetine and started 7.5 mg of Mirtazapine at bedtime. REVIEW OF SYSTEMS CONSTITUTIONAL: malaise, poor oral intake -resolving NEUROLOGICAL: Denies headache, motor weakness, sensory deficit, vertigo/spinning sensation, gait abnormalities, or tremors. ENT: No hearing loss, otalgia, otorrhea, rhinitis, rhinorrhea, hoarseness, or sore throat. CARDIOVASCULAR: Denies any exertional angina, dyspnea on exertion, orthopnea, paroxysmal nocturnal dyspnea, palpitations, life-threatening arrhythmias, claudi cation. PULMONARY: Denies any shortness of breath, cough, phlegm/sputum, hemoptysis, pleuritic chest pain. SLEEP: Denies morning headaches, daytime somnolence or napping. Denies difficulty falling asleep, staying asleep, waking from sleep. Denies knowledge of snoring. GASTROINTESTINAL: nausea, vomiting, abdominal pain, melena, coffee ground emesis - resolved GENITOURINARY: Urine output was very low - resolving PHYSICAL EXAM GENERAL APPEARANCE: The patient is awake, alert, and oriented, answering to all questions with very mild pain around her drains. NEUROLOGICAL: Cranial nerves II-XII grossly intact. Neurological examination is non focal with spontaneous movement of upper and lower extremities HEENT: Face is symmetric. Pupils are equal and reactive. Extraocular movements are intact. NECK: Supple. No JVD. No thyromegaly. No submental, submandibular, pre- /postauricular, occipital or supraclavicular lymphadenopathy. CHEST: Normal chest expansion. No Telemetry. LUNGS: Absence of any rales, rhonchi or any wheezing. CARDIOVASCULAR: Regular. S1 and S2 normal. No appreciable rubs, murmurs or gallops. ABDOMEN: no rebound noted, there is perisplenic abdominal drain noted with ileostomy bag, ostomy ring and abdominal binder. : Deferred. Currently catheterized. EXTREMITIES: Swelling in right upper extremity. Mild ecchymosis. Vital Signs (last 8hr) Date Time Temp Pulse Resp B/P (MAP) Pulse Ox O2 Delivery O2 Flow Rate FiO2 09/09/25 08:00 98.1 86 18 114/66 97 Room Air 09/09/25 04:08 97.9 82 20 111/65 97 Room Air LABS: Laboratory: Test 09/09/25 05:53 09/09/25 04:37 09/08/25 01:50 Range/Units Whole Blood Glucose 83 70-110 MG/DL White Blood Count 3.0 L 4.8-10.8 K/uL Red Blood Count 2.95 L 4.00-5.50 MIL/uL Hemoglobin 9.2 L 12.0-16.0 g/dL Hematocrit 28.1 L 36-48 % Mean Corpuscular Volume 95.3 79-99 fL Mean Corpuscular Hemoglobin 31.2 27.0-33.0 pg Mean Corpuscular Hemoglobin Concent 32.7 32.0-36.0 g/dL Red Cell Distribution Width 18.2 H 11.0-15.5 % Platelet Count 139 130-400 K/uL Mean Platelet Volume 9.9 7.5-10.5 fL Immature Granulocyte % (Auto) 0.7 0-1 % Neutrophils (%) (Auto) 49.8 40.0-77.0 % Lymphocytes (%) (Auto) 34.9 21.0-51.0 % Monocytes (%) (Auto) 9.5 3.0-13.0 % Eosinophils (%) (Auto) 4.4 0.0-8.0 % Basophils (%) (Auto) 0.7 0.0-5.0 % Neutrophils # (Auto) 1.5 L 1.8-7.7 K/uL Lymphocytes # (Auto) 1.0 1.0-4.8 K/uL Monocytes # (Auto) 0.3 0.1-1.0 K/uL Eosinophils # (Auto) 0.13 0.00-0.70 K/uL Basophils # (Auto) 0.02 0.00-0.20 K/uL Absolute Immature Granulocyte (auto 0.02 0-1 K/uL Segmented Neutrophils % 61 40-70 % Lymphocytes % (Manual) 26 22-44 % Monocytes % (Manual) 6 2-9 % Eosinophils % (Manual) 7 H 1-6 % Nucleated Red Blood Cells 0.0 0.0-0.19 % Differential Comment MANUAL DIFFERENTIAL White Cell Morphology Comment See comments Platelet Morphology Comment ADEQUATE Red Blood Cell Morphology ANISO 1+ Sodium Level 137 136-145 mmol/L Potassium Level 4.0 3.5-5.1 mmol/L Chloride Level 109 101-111 mmol/L Carbon Dioxide Level 19 L 21-32 mmol/L Blood Urea Nitrogen 13 7-18 mg/dL Creatinine 0.7 0.5-1.0 mg/dL Glomerular Filtration Rate Calc 101 >90 mL/min Random Glucose 84 70-105 mg/dL Total Calcium 8.3 L 8.5-10.1 mg/dL Magnesium Level 1.80 1.80-2.40 mg/dL Albumin 2.5 L 3.5-5.0 g/dL Current Medications Medications (Trade) Dose Ordered Sig/Gregory Route PRN Reason Start Time Stop Time Status Last Admin Dose Admin Acetaminophen (TYLenol 325MG TAB) 650 mg Q6H PRN PO MILD PAIN (1-3) 08/29/25 10:00 09/28/25 09:59 Acetaminophen/ Hydrocodone Bitart (NORco 5/325MG) 2 tab Q4H PRN PO SEVERE PAIN (7-10) 09/08/25 09:30 09/13/25 09:29 09/09/25 10:42 2 TAB Albuterol (DUOneb) 1 udvial Q6H PRN IH SHORTNESS OF BREATH 08/29/25 10:00 09/28/25 09:59 Apixaban (EliquIS) 5 mg BID PO 09/08/25 21:00 10/08/25 20:59 09/09/25 10:37 5 MG Apixaban (EliquIS) 10 mg BID PO 09/07/25 22:00 09/08/25 01:42 DC 09/07/25 22:06 10 MG Apixaban (EliquIS) 10 mg BID PO 09/08/25 09:30 09/08/25 10:13 DC Atorvastatin Calcium (LIPItor 10MG) 5 mg HS PO 09/05/25 21:00 10/05/25 20:59 09/08/25 21:35 5 MG Calcium Gluconate (Calcium Gluc 1gm Vial) 1 gm ONCE IV 08/29/25 09:30 08/29/25 09:23 DC Cyclobenzaprine HCl (Cyclobenzaprine HCl) 5 mg TID PRN PO muscle spasms 09/05/25 11:00 10/05/25 10:59 Dextrose (D50w) 50 ml AD PRN IV HYPOGLYCEMIA PROTOCOL 08/29/25 10:00 09/28/25 09:59 Dextrose/Sodium Chloride 1,000 ml @ 0 mls/hr AD IV 08/29/25 12:30 08/29/25 16:05 DC Duloxetine HCl (CymbALTA 30 mg CAP) 30 mg BID PO 09/03/25 21:00 09/09/25 11:10 DC 09/09/25 10:37 30 MG Enoxaparin Sodium (Lovenox (Pharmacy To Dose)) 1 unit Q12H SQ 09/06/25 13:30 09/06/25 13:21 DC Enoxaparin Sodium (Lovenox 60mg) 60 mg Q12H SQ 09/06/25 13:30 09/07/25 15:03 DC 09/07/25 14:29 60 MG Folic Acid (FOLic ACID 1 MG TABLET) 1 mg DAILY PO 09/08/25 09:00 10/08/25 08:59 09/09/25 10:37 1 MG Glucagon (Glucagon 1mg Kit) 1 mg AD PRN IM HYPOGLYCEMIA PROTOCOL 08/29/25 10:00 09/28/25 09:59 Home Med (Home Medication) (Medroxyprogesterone Acetate (Provera) 1 TAB) DAILY PO 09/06/25 09:00 10/06/25 08:59 Insulin Human Regular (humuLIN R 100 UNIT/ML 3ML) 5 unit ONCE IV 08/29/25 09:30 08/29/25 09:25 DC Insulin Human Regular (humuLIN R 100 UNIT/ML 3ML) INSULIN SLIDING SCAL... ACHS SQ 08/29/25 11:30 09/28/25 11:29 09/06/25 16:27 3 UNIT Insulin Human Regular 100 unit/ Sodium Chloride 101 ml @ 0 mls/hr PROTOCOL IV 08/29/25 12:30 08/29/25 16:05 DC Lactated Ringer's 1,000 ml @ 100 mls/hr Q10H IV 09/06/25 00:00 09/06/25 18:44 DC 09/06/25 08:35 100 MLS/HR Lactulose (Constulose 20gm/ 30ml Udcup) 20 gm BID PO 09/05/25 21:00 10/01/25 13:59 09/07/25 20:59 20 GM Lactulose (Constulose 20gm/ 30ml Udcup) 20 gm TID PO 09/01/25 14:00 09/05/25 10:44 DC 09/05/25 08:06 20 GM Magnesium Sulfate 50 ml @ 0 mls/hr PROTOCOL IV 08/29/25 12:30 08/29/25 16:05 DC Magnesium Sulfate 50 ml @ 0 mls/hr PROTOCOL IV 08/30/25 10:00 09/29/25 09:59 09/08/25 04:26 25 MLS/HR Magnesium Sulfate 50 ml @ 0 mls/hr PROTOCOL IV 09/02/25 13:30 09/02/25 13:04 DC Magnesium Sulfate 50 ml @ 0 mls/hr PROTOCOL IV 09/03/25 08:00 09/03/25 07:43 DC Meropenem (Merrem 500mg) 500 mg Q24H IVPB 08/29/25 10:00 08/31/25 09:59 DC 08/30/25 09:46 500 MG Meropenem (Merrem 500mg) 500 mg Q24H IVPB 08/31/25 23:30 09/10/25 23:29 09/08/25 23:05 500 MG Midodrine (PROAMatine 5 MG TABLET) 5 mg TID PO 09/08/25 21:00 10/08/25 20:59 09/09/25 10:39 5 MG Midodrine (PROAMatine 5 MG TABLET) 10 mg BID PO 09/01/25 09:00 08/31/25 18:36 DC Midodrine (PROAMatine 5 MG TABLET) 10 mg TID PO 09/01/25 09:00 09/08/25 17:20 DC 09/08/25 16:16 10 MG Mirtazapine (REMeron 15 MG TAB) 7.5 mg HS PO 09/09/25 21:00 10/09/25 20:59 Morphine Sulfate (morPHINE 2MG SYG) 0.5 mg Q4H PRN IVP SEVERE PAIN (7-10) 09/07/25 13:30 09/08/25 09:11 DC 09/08/25 04:27 0.5 MG Morphine Sulfate (morPHINE 2MG SYG) 0.5 mg Q4H PRN IVP SEVERE PAIN (7-10) 09/08/25 18:00 09/09/25 11:10 DC Morphine Sulfate (morPHINE 2MG SYG) 1 mg Q4H PRN IVP SEVERE PAIN (7-10) 09/05/25 13:30 09/07/25 11:35 DC 09/06/25 23:40 1 MG Morphine Sulfate (morPHINE 2MG SYG) 2 mg Q4H PRN IVP SEVERE PAIN (7-10) 09/01/25 05:30 09/05/25 13:19 DC 09/05/25 04:28 2 MG Norepinephrine Bitartrate 32 mg/ Sodium Chloride 250 ml @ 0 mls/hr Q0M STAT IV 08/29/25 21:01 08/29/25 21:07 DC 08/29/25 21:13 0 MLS/HR Octreotide Acetate 1250 mcg/ Sodium Chloride 250 ml @ 0 mls/hr PROTOCOL IV 08/29/25 08:30 09/01/25 10:32 DC 08/31/25 10:18 5 MLS/HR Ondansetron HCl (zoFRAN 4MG INJ) 4 mg Q6H PRN IVP NAUSEA/VOMITING 08/29/25 09:30 09/28/25 09:29 09/09/25 10:42 4 MG Pantoprazole Sodium (PROTonix 40MG INJ) 40 mg BID IVP 09/01/25 21:00 09/03/25 14:32 DC 09/03/25 09:16 40 MG Pantoprazole Sodium (PROTonix 40MG INJ) 40 mg BID IVP 09/06/25 09:00 10/06/25 08:59 09/09/25 10:37 40 MG Pantoprazole Sodium (PROTonix 40MG TAB) 40 mg DAILY PO 09/04/25 09:00 09/06/25 00:03 DC 09/05/25 08:06 40 MG Pantoprazole Sodium 80 mg/ Sodium Chloride 100 ml @ 10 mls/hr Q10H IV 08/29/25 08:30 09/01/25 10:32 DC 09/01/25 05:50 10 MLS/HR Pharmacy Profile Note (Pharmacy Communication) 1 each ONCE MISC 08/29/25 09:30 08/29/25 09:35 DC Pharmacy Profile Note (Pharmacy Communication) 1 each ONCE MISC 08/31/25 23:30 08/31/25 23:17 DC Potassium Chloride 100 ml @ 50 mls/hr AD PRN IV POTASSIUM PROTOCOL 08/29/25 12:30 09/28/25 12:29 09/02/25 06:26 50 MLS/HR Psyllium Hydrophilic Mucilloid (Metamucil) 1 tbs TID PO 09/04/25 14:00 10/04/25 13:59 09/09/25 10:39 1 TBS Sodium Bicarbonate 150 meq/Dextrose 1,150 ml @ 125 mls/hr Q9H12M IVP 08/29/25 10:00 08/30/25 10:12 DC 08/30/25 08:07 125 MLS/HR Sodium Bicarbonate (Sodium Bicarbonate) 1,300 mg TID PO 09/07/25 14:00 09/08/25 18:00 DC 09/08/25 16:15 1,300 MG Sodium Bicarbonate (Sodium Bicarbonate) 1,300 mg TID PO 09/09/25 09:00 09/10/25 12:00 09/09/25 10:38 1,300 MG Sodium Chloride 250 ml @ 0 mls/hr AD IV 08/29/25 17:30 09/28/25 17:29 Sodium Chloride 1,000 ml @ 0 mls/hr Q0M IV 08/29/25 16:00 08/29/25 16:03 DC Sodium Chloride 1,000 ml @ 0 mls/hr Q0M IV 08/29/25 16:00 09/01/25 08:01 DC 08/29/25 16:10 500 MLS/HR Sodium Chloride 1,000 ml @ 125 mls/hr Q8H IV 08/29/25 09:30 08/29/25 09:57 DC Sodium Chloride 1,000 ml @ 150 mls/hr Q6H40M IV 08/29/25 18:30 09/01/25 09:29 DC 08/31/25 16:16 150 MLS/HR Sodium Chloride 1,000 ml @ 200 mls/hr PROTOCOL IV 08/29/25 12:30 08/29/25 16:05 DC Sodium Chloride 1,000 ml @ 999 mls/hr Q1H1M IV 08/29/25 09:30 08/29/25 09:06 DC Thiamine HCl (Vitamin B-1) 200 mg Q12H IVP 08/29/25 09:30 09/02/25 09:30 DC 09/02/25 08:56 200 MG Vitamin B Complex (Vitamin B-12) 1,000 mcg DAILY PO 09/08/25 09:00 10/08/25 08:59 09/09/25 10:37 1,000 MCG DIAGNOSTICS / RADIOLOGY: [ ] ASSESSMENT: Acute upper GI bleeding- Hematemesis, dark output from ileostomy bag, POA, Improving Acute DVT of right axillary vein and right cephalic vein High output from ileostomy bag, not POA Hemorrhagic shock versus hypovolemic shock, POA, Resolved Normocytic normochromic anemia, POA Non anion gap metabolic acidosis Generalized anxiety and Insomnia, POA Hypovolemic hypochloremic hyponatremia, POA, Resolved Severe hyperkalemia, POA, Resolved Hypokalemia, Not POA, resolved Hypophosphatemia, Not POA High anion gap metabolic acidosis, POA, Resolved Hyperammonemia, POA, Improving Lactic acidosis, POA, Resolved Hyperphosphatemia, POA, Resolved Acute renal failure - Prerenal Acute Kidney Injury, POA, resolved Starvation Ketoacidosis, POA Rule out occult sepsis, POA Recent extended hospitalization in [facility], 07/20/2025- 08/25/2025 for sepsis, acute abdomen, POA Severe Dehydration, POA, Improving History of esophageal varices, POA Acute Decompensated liver cirrhosis, POA Hx of acute cholecystitis, s/p cholecystostomy tube placement on 08/02/2025. Perisplenic abscess, s/p CT-guided drainage placement on 08/09/2025. 2.7 x 2.2 x 5.1 cm infrasplenic collection History of gastritis, POA Hx of Generalized peritonitis with ESBL E coli infection, POA Moderate Protein calorie malnutrition POA History of bilious peritonitis with small colonic anastomosis perforation s/p diagnostic laparoscopy, abdominal washout, ileostomy creation by Dr. Gann, 07/21/2025 Hx of DM II, POA Recent colovesical fistula repair with sigmoid colon resection and anastomosis on PLAN: High output from ileostomy * Continue fiber 3 times a day. Secretions have thickened. * Monitor for any signs of dehydration including vitals and BMP. * Lactulose decreased to b.i.d. from t.i.d.. * Ostomy ring and abdominal binder in place for better seal. * Monitor input and output including ileostomy bag. Acute DVT of right axillary vein and right cephalic vein * Patient developed nodular, tender swelling along the venous distribution in right upper extremity * Venous doppler on 09/05/25 revealed acute DVT of right axillary vein and right cephalic vein * Hematology recommended to bridge Lovenox 60 mg Q12 with Apixaban 10 mg BID for 5 days followed by Apixaban 5 mg bid for 3 months * We changed the apixaban to 5 mg b.i.d. * Gastroenterology cleared patient for anticoagulation Non-Anion gap metabolic acidosis * Patient's bicarb is 19, sodium 137, chloride 109 and albumin 2.5, albumin corrected anion gap 11.8 * Patient to be continued on 1300 mg of sodium bicarbonate t.i.d. * We will monitor labs tomorrow a.m. Acute upper GI bleeding- Hematemesis, dark output from ileostomy bag * EGD was done which showed less than 5 mm esophageal varices with scar in the lower 3rd of the esophagus, hypertensive gastropathy, status post biopsy, duodenum was normal during examination. * Patient received Sandostatin and Protonix drip on presentation which were subsequently stopped . * Patient resumed on IV Protonix 40 mg b.i.d. * Diet advanced to regular diet * Ileostomy output 225 ml in last 24 hours and has thicker consistency, continue fiber 3 times daily. Normocytic normochromic anemia, iron deficiency * Patient's hemoglobin stable at 9.5 * Anemia of chronic disease versus iron deficiency versus blood loss. * Iron 31, TIBC 155, % sat 20 * Keep hemoglobin above 7 Acute renal failure, Prerenal Acute Kidney Injury, Dehydration, resolved * On Presentation, patient's creatinine was 5, BUN 80. * FENa <0.2, Stone <20 - Urine microscopy showed Hyaline and granular casts * Patient was started on NaCl 150mls/hr which was stopped. * Bicarb drip was discontinued as per nephrology. * patient is successfully weaned off Levophed * Patient received emergent hemodialysis session for elevated renal parameters as well as electrolyte derangements including Hyperkalemia and acidosis. * Her creatinine and BUN have improved to 0.7 and 9 respectively (09/08) * Transfuse as needed to keep Hb above 7 (Hb=9.0, 08/31/25) * Monitor input and output. Patient's total output in the past24 hours is 2070, versus 3950 input. * We will repeat a.m. labs and follow up with Nephrology recommendations. Generalized anxiety and Insomnia * Patient very anxious about her health outcomes from the medical complexity * Patient is worried after noticing blood in the ileostomy bag while continuing anticoagulation for DVT * Patient reassured of close monitoring and risk vs benefits on continuing anticoagulation * Start Mirtazapine 7.5 mg daily ATTESTATION BY PHYSICIAN I have seen and examined the patient. I reviewed the documentation, medical decision making, and treatment plan as noted by the resident physician above. I agree with the findings and plan of care. AYAKA BARR MD, HARSHAVARDHA MD Sep 09, 2025 11:50
[2025-09-09 11:54] VITALS: BP 161/107; PULSE 91; RESP 18; TEMP 98
--- NOTE | 2025-09-09 12:31 | PN ---
50-year-old female with underlying history of type 2 diabetes mellitus, history of liver cirrhosis, prior history of esophageal varices requiring banding in May,, history of robotic sigmoid resection with takedown of colovesical fistula who was recently hospitalized in [facility] from 07/20/2025 - 08/25/2025 patient was found to have bilious peritonitis with 2 mm perforation of colonic anastomosis requiring diagnostic laparoscopy, abdominal washout and drain placement with creation of diverting loop ileostomy. Patient was hospitalized for about one month and subsequently required IR guided drain placement as well. She was just discharged from the hospital on 08/25/2025. Patient's daughter reports that patient was having nausea and vomiting with poor oral intake at home. She started to have coffee-ground emesis today and she also noticed some right streaks of blood with a coffee-ground emesis. Stool has also been dark in the ileostomy bag. Patient is having moderate intensity abdominal pain as well. She has not been taking any NSAIDs. Daughter reports that patient has been very weak since her discharge in very debilitated. Patient denies active chest pain. Denies active shortness of breath. 09/06/25 Patient was seen and evaluated at bedside. She is currently doing well, denies any nausea or abdominal pain or vomiting. As per the nurse, she had bright red blood in her ileostomy bag last night but it was clear this morning. Venous Doppler of RUE revealed DVT in right axillary vein and thrombosis of rt cephalic vein and we were consulted for the same. 09/07/25 Patient was seen and evaluated at bedside. She admits to doing well, has complaints of generalized body pain but denies pain to her right arm. She had blood mixed with stool in her ileostomy bag and a total output of 225ml last night as per the primary nurse, currently no blood noted in the ileostomy bag or the drain. Patient was started on Eliquis 5 mg p.o. twice daily. There is no obvious bleeding PHYSICAL EXAM LUNGS: Good air entry. No rales, no rhonchi. CARDIOVASCULAR: S1, S2 regular. No murmur heard. ABDOMEN: Soft, non tender, bowel sounds present, no organomegaly CENTRAL NERVOUS SYSTEM: Awake, alert, oriented x 3. No focal deficits. SKIN: No rashes, no swelling. LYMPHATICS: No peripheral lymphadenopathy MUSCULOSKELETAL: No joint swelling, erythema or tenderness. EXTREMITIES: No cyanosis or clubbing IMPRESSION 1. Acute DVT of Right axillary vein . Patient was started on Eliquis 5 mg p.o. twice daily 2. Iron Deficiency Anemia 3. Acute upper GI bleed, resolved 4. Liver cirrhosis 5. Prerenal CYNTHIA, resolved PLAN 1. Patient is on Eliquis 5 mg p.o. twice daily. 2.Peripheral blood smear shows microcytic hypochromic anemia consistent with iron deficiency anemia . There is no teardrop cell, pelger huet cell or rouleaux formation Cytoplasmic vacuolation seen in neutrophils. Platelet morphology and count within normal limits . 3. There is hypersegmented neutrophil. This patient will benefit from Folic acid 1 mg daily and Vitamin B12 1000 mcg daily 4. CBC to be done tomorrow. If the CBC is stable especially with the hemoglobin we will continue Eliquis. If there is decrease in the hemoglobin then maybe we need to stop anticoagulation Vitals/Labs Vital Signs Date Time Temp Pulse Resp B/P (MAP) Pulse Ox O2 Delivery O2 Flow Rate FiO2 09/09/25 11:54 98.1 91 18 161/107 97 09/09/25 08:00 Room Air 09/08/25 20:00 0 21 Laboratory Tests 09/09/25 04:37 Medications Current Medications Octreotide Acetate 50 mcg ONCE ONCE IV Last administered on 08/29/25at 09:02; Start 08/29/25 at 08:30; Stop 08/29/25 at 08:31; Status DC Octreotide Acetate 1250 mcg/ Sodium Chloride 250 ml @ 0 mls/hr PROTOCOL IV Last administered on 08/31/25at 10:18; Start 08/29/25 at 08:30; Stop 09/01/25 at 10:32; Status DC Pantoprazole Sodium 80 mg ONCE ONCE IVP Last administered on 08/29/25at 09:02; Start 08/29/25 at 08:30; Stop 08/29/25 at 08:31; Status DC Pantoprazole Sodium 80 mg/ Sodium Chloride 100 ml @ 10 mls/hr Q10H IV Last administered on 09/01/25at 05:50; Start 08/29/25 at 08:30; Stop 09/01/25 at 10:32; Status DC Promethazine HCl 25 mg ONCE ONCE IM Last administered on 08/29/25at 09:07; Start 08/29/25 at 08:30; Stop 08/29/25 at 08:33; Status DC Sodium Chloride 1,000 ml @ 999 mls/hr Q1H1M IV; Start 08/29/25 at 09:30; Stop 08/29/25 at 09:06; Status DC Calcium Gluconate 1 gm/Sodium Chloride 110 ml @ 110 mls/hr ONCE ONCE IV Last administered on 08/29/25at 09:41; Start 08/29/25 at 09:30; Stop 08/29/25 at 10:29; Status DC Dextrose 50 ml ONCE ONCE IV; Start 08/29/25 at 09:30; Stop 08/29/25 at 09:27; Status DC Insulin Human Regular 5 unit ONCE ONCE IV Last administered on 08/29/25at 09:57; Start 08/29/25 at 09:30; Stop 08/29/25 at 09:31; Status DC Albuterol Sulfate 10 mg ONCE ONCE IH Last administered on 08/29/25at 09:37; Start 08/29/25 at 09:30; Stop 08/29/25 at 09:31; Status DC Lactulose 200 gm ONCE ONCE NH; Start 08/29/25 at 09:30; Stop 08/29/25 at 09:36; Status DC Calcium Gluconate 1 gm ONCE IV; Start 08/29/25 at 09:30; Stop 08/29/25 at 09:23; Status DC Sodium Chloride 1,000 ml @ 125 mls/hr Q8H IV; Start 08/29/25 at 09:30; Stop 08/29/25 at 09:57; Status DC Insulin Human Regular 5 unit ONCE IV; Start 08/29/25 at 09:30; Stop 08/29/25 at 09:25; Status DC Dextrose 50 ml ONCE ONCE IV Last administered on 08/29/25at 09:47; Start 08/29/25 at 09:30; Stop 08/29/25 at 09:31; Status DC Sodium Bicarbonate 50 meq ONCE ONCE IV Last administered on 08/29/25at 09:47; Start 08/29/25 at 09:30; Stop 08/29/25 at 09:31; Status DC Pharmacy Profile Note 1 each ONCE MISC; Start 08/29/25 at 09:30; Stop 08/29/25 at 09:35; Status DC Ondansetron HCl 4 mg Q6H PRN IVP Last administered on 09/09/25at 10:42; Start 08/29/25 at 09:30; Stop 09/28/25 at 09:29 Thiamine HCl 200 mg Q12H IVP Last administered on 09/02/25at 08:56; Start 08/29/25 at 09:30; Stop 09/02/25 at 09:30; Status DC Meropenem 500 mg Q24H IVPB Last administered on 08/30/25at 09:46; Start 08/29/25 at 10:00; Stop 08/31/25 at 09:59; Status DC Sodium Chloride 1,000 ml @ 0 mls/hr ONCE ONCE IV Last administered on 08/29/25at 09:47; Start 08/29/25 at 10:00; Stop 08/29/25 at 10:01; Status DC Dextrose 50 ml AD PRN IV; Start 08/29/25 at 10:00; Stop 09/28/25 at 09:59 Glucagon 1 mg AD PRN IM; Start 08/29/25 at 10:00; Stop 09/28/25 at 09:59 Acetaminophen 650 mg Q6H PRN PO; Start 08/29/25 at 10:00; Stop 09/28/25 at 09:59 Albuterol 1 udvial Q6H PRN IH; Start 08/29/25 at 10:00; Stop 09/28/25 at 09:59 Sodium Bicarbonate 50 meq ONCE ONCE IV Last administered on 08/29/25at 10:12; Start 08/29/25 at 10:00; Stop 08/29/25 at 10:05; Status DC Sodium Bicarbonate 150 meq/Dextrose 1,150 ml @ 125 mls/hr Q9H12M IVP Last administered on 08/30/25at 08:07; Start 08/29/25 at 10:00; Stop 08/30/25 at 10:12; Status DC Insulin Human Regular INSULIN SLIDING SCAL... ACHS SQ Last administered on 09/06/25at 16:27; Start 08/29/25 at 11:30; Stop 09/28/25 at 11:29 Sodium Chloride 1,000 ml @ 0 mls/hr ONCE ONCE IV Last administered on 08/29/25at 13:44; Start 08/29/25 at 11:00; Stop 08/29/25 at 11:06; Status DC Sodium Chloride 1,000 ml @ 200 mls/hr PROTOCOL IV; Start 08/29/25 at 12:30; Stop 08/29/25 at 16:05; Status DC Magnesium Sulfate 50 ml @ 0 mls/hr PROTOCOL IV; Start 08/29/25 at 12:30; Stop 08/29/25 at 16:05; Status DC Insulin Human Regular 100 unit/ Sodium Chloride 101 ml @ 0 mls/hr PROTOCOL IV; Start 08/29/25 at 12:30; Stop 08/29/25 at 16:05; Status DC Dextrose/Sodium Chloride 1,000 ml @ 0 mls/hr AD IV; Start 08/29/25 at 12:30; Stop 08/29/25 at 16:05; Status DC Potassium Chloride 100 ml @ 50 mls/hr AD PRN IV Last administered on 09/02/25at 06:26; Start 08/29/25 at 12:30; Stop 09/28/25 at 12:29 Lidocaine HCl 20 ml STK-MED ONCE .ROUTE; Start 08/29/25 at 14:24; Stop 08/29/25 at 14:25; Status DC Lidocaine HCl 20 ml STK-MED ONCE .ROUTE Last administered on 08/29/25at 15:59; Start 08/29/25 at 14:25; Stop 08/29/25 at 14:25; Status DC Sodium Chloride 1,000 ml @ 0 mls/hr Q0M IV; Start 08/29/25 at 16:00; Stop 08/29/25 at 16:03; Status DC Sodium Chloride 1,000 ml @ 0 mls/hr Q0M IV Last administered on 08/29/25at 16:10; Start 08/29/25 at 16:00; Stop 09/01/25 at 08:01; Status DC Sodium Chloride 250 ml @ 0 mls/hr AD IV; Start 08/29/25 at 17:30; Stop 09/28/25 at 17:29 Sodium Chloride 1,000 ml @ 0 mls/hr ONCE ONCE IV Last administered on 08/29/25at 19:57; Start 08/29/25 at 17:30; Stop 08/29/25 at 17:35; Status DC Sodium Chloride 1,000 ml @ 150 mls/hr Q6H40M IV Last administered on 08/31/25at 16:16; Start 08/29/25 at 18:30; Stop 09/01/25 at 09:29; Status DC Dexmedetomidine/ Sodium Chloride 400 mcg STK-MED ONCE IV; Start 08/29/25 at 19:56; Stop 08/29/25 at 19:56; Status DC Norepinephrine Bitartrate 32 mg/ Sodium Chloride 250 ml @ 0 mls/hr Q0M STAT IV Last administered on 08/29/25at 21:13; Start 08/29/25 at 21:01; Stop 08/29/25 at 21:07; Status DC Magnesium Sulfate 50 ml @ 0 mls/hr PROTOCOL IV Last administered on 09/08/25at 04:26; Start 08/30/25 at 10:00; Stop 09/29/25 at 09:59 Morphine Sulfate 2 mg ONCE ONCE IVP Last administered on 08/31/25at 02:24; Start 08/31/25 at 02:30; Stop 08/31/25 at 02:31; Status DC Potassium Phosphate 250 ml @ 42 mls/hr PROTOCOL ONCE IV Last administered on 08/31/25at 10:11; Start 08/31/25 at 09:00; Stop 08/31/25 at 14:57; Status DC Multivitamins/ Minerals 10 ml/ Chromium/Copper/ Manganese/Zinc 3 ml/Amino Acids/ Electrolytes/ Dextrose 2,000 ml @ 83 mls/hr ONCE ONCE IV Last administered on 08/31/25at 20:53; Start 08/31/25 at 20:00; Stop 09/01/25 at 11:25; Status DC Midodrine 10 mg BID PO; Start 09/01/25 at 09:00; Stop 08/31/25 at 18:36; Status DC Midodrine 10 mg ONCE ONCE PO Last administered on 08/31/25at 18:36; Start 08/31/25 at 18:30; Stop 08/31/25 at 18:31; Status DC Midodrine 10 mg TID PO Last administered on 09/08/25at 16:16; Start 09/01/25 at 09:00; Stop 09/08/25 at 17:20; Status DC Pharmacy Profile Note 1 each ONCE MISC; Start 08/31/25 at 23:30; Stop 08/31/25 at 23:17; Status DC Meropenem 500 mg Q24H IVPB Last administered on 09/08/25at 23:05; Start 08/31/25 at 23:30; Stop 09/10/25 at 23:29 Morphine Sulfate 2 mg Q4H PRN IVP Last administered on 09/05/25at 04:28; Start 09/01/25 at 05:30; Stop 09/05/25 at 13:19; Status DC Propofol 200 mg STK-MED ONCE IV; Start 09/01/25 at 09:53; Stop 09/01/25 at 09:53; Status DC Ketamine HCl 50 mg STK-MED ONCE .ROUTE; Start 09/01/25 at 09:53; Stop 09/01/25 at 09:53; Status DC Pantoprazole Sodium 40 mg BID IVP Last administered on 09/03/25at 09:16; Start 09/01/25 at 21:00; Stop 09/03/25 at 14:32; Status DC Lactulose 20 gm TID PO Last administered on 09/05/25at 08:06; Start 09/01/25 at 14:00; Stop 09/05/25 at 10:44; Status DC Multivitamins/ Minerals 10 ml/ Amino Acids/ Electrolytes/ Dextrose 2,000 ml @ 83 mls/hr ONCE ONCE IV Last administered on 09/01/25at 22:13; Start 09/01/25 at 20:00; Stop 09/02/25 at 20:05; Status DC Magnesium Sulfate 50 ml @ 0 mls/hr PROTOCOL IV; Start 09/02/25 at 13:30; Stop 09/02/25 at 13:04; Status DC Magnesium Sulfate 50 ml @ 0 mls/hr PROTOCOL IV; Start 09/03/25 at 08:00; Stop 09/03/25 at 07:43; Status DC Pantoprazole Sodium 40 mg DAILY PO Last administered on 09/05/25at 08:06; Start 09/04/25 at 09:00; Stop 09/06/25 at 00:03; Status DC Duloxetine HCl 30 mg BID PO Last administered on 09/09/25at 10:37; Start 09/03/25 at 21:00; Stop 09/09/25 at 11:10; Status DC Psyllium Hydrophilic Mucilloid 1 tbs TID PO Last administered on 09/09/25at 10:39; Start 09/04/25 at 14:00; Stop 10/04/25 at 13:59 Cyclobenzaprine HCl 5 mg TID PRN PO; Start 09/05/25 at 11:00; Stop 10/05/25 at 10:59 Home Med (Medroxyprogesterone Acetate (Provera) 1 TAB) DAILY PO; Start 09/06/25 at 09:00; Stop 10/06/25 at 08:59 Atorvastatin Calcium 5 mg HS PO Last administered on 09/08/25at 21:35; Start 09/05/25 at 21:00; Stop 10/05/25 at 20:59 Lactulose 20 gm BID PO Last administered on 09/07/25at 20:59; Start 09/05/25 at 21:00; Stop 10/01/25 at 13:59 Morphine Sulfate 1 mg Q4H PRN IVP Last administered on 09/06/25at 23:40; Start 09/05/25 at 13:30; Stop 09/07/25 at 11:35; Status DC Lactated Ringer's 1,000 ml @ 100 mls/hr Q10H IV Last administered on 09/06/25at 08:35; Start 09/06/25 at 00:00; Stop 09/06/25 at 18:44; Status DC Pantoprazole Sodium 40 mg BID IVP Last administered on 09/09/25at 10:37; Start 09/06/25 at 09:00; Stop 10/06/25 at 08:59 Enoxaparin Sodium 1 unit Q12H SQ; Start 09/06/25 at 13:30; Stop 09/06/25 at 13:21; Status DC Enoxaparin Sodium 60 mg Q12H SQ Last administered on 09/07/25at 14:29; Start 09/06/25 at 13:30; Stop 09/07/25 at 15:03; Status DC Folic Acid 1 mg DAILY PO Last administered on 09/09/25at 10:37; Start 09/08/25 at 09:00; Stop 10/08/25 at 08:59 Vitamin B Complex 1,000 mcg DAILY PO Last administered on 09/09/25at 10:37; Start 09/08/25 at 09:00; Stop 10/08/25 at 08:59 Sodium Bicarbonate 1,300 mg TID PO Last administered on 09/08/25at 16:15; Start 09/07/25 at 14:00; Stop 09/08/25 at 18:00; Status DC Morphine Sulfate 0.5 mg Q4H PRN IVP Last administered on 09/08/25at 04:27; Start 09/07/25 at 13:30; Stop 09/08/25 at 09:11; Status DC Apixaban 10 mg BID PO Last administered on 09/07/25at 22:06; Start 09/07/25 at 22:00; Stop 09/08/25 at 01:42; Status DC Apixaban 10 mg BID PO; Start 09/08/25 at 09:30; Stop 09/08/25 at 10:13; Status DC Acetaminophen/ Hydrocodone Bitart 2 tab Q4H PRN PO Last administered on 09/09/25at 10:42; Start 09/08/25 at 09:30; Stop 09/13/25 at 09:29 Apixaban 5 mg BID PO Last administered on 09/09/25at 10:37; Start 09/08/25 at 21:00; Stop 10/08/25 at 20:59 Midodrine 5 mg TID PO Last administered on 09/09/25at 10:39; Start 09/08/25 at 21:00; Stop 10/08/25 at 20:59 Melatonin 5 mg ONCE ONCE PO Last administered on 09/08/25at 21:35; Start 09/08/25 at 21:00; Stop 09/08/25 at 21:01; Status DC Morphine Sulfate 0.5 mg Q4H PRN IVP; Start 09/08/25 at 18:00; Stop 09/09/25 at 11:10; Status DC Sodium Bicarbonate 1,300 mg TID PO Last administered on 09/09/25at 10:38; Start 09/09/25 at 09:00; Stop 09/10/25 at 12:00 Mirtazapine 7.5 mg HS PO; Start 09/09/25 at 21:00; Stop 10/09/25 at 20:59 LYNDSEY GOYAL MD Sep 09, 2025 12:30
--- NOTE | 2025-09-09 13:11 | HMCIMG ---
EXAM: CT ABDOMEN WITHOUT INTRAVENOUS CONTRAST Technique: Multislice helical computed tomography from the diaphragms through the inguinal region with thin-section axial images and coronal/sagittal reformations; dose reduction applied per ALARA. CTDIvol 6.5 mGy; DLP 204.50 mGy???cm. Contrast: No intravenous contrast administered. Clinical Information: Evaluate left upper-quadrant pigtail catheter for possible removal. Comparison: CT abdomen without contrast 09/06 00:31 EST Findings: Lung bases: Residual trace left pleural effusion with adjacent atelectasis; previously described calcified right lower-lobe pulmonary nodule is not visualized on this limited abdominal coverage. Liver: Nodular hepatic contour consistent with cirrhosis; no focal hepatic lesion identified on this noncontrast study. Gallbladder and biliary tree: Multiple punctate calcifications along the gallbladder wall; no biliary ductal dilatation. Pancreas and spleen: Stable perisplenic fluid collection with an indwelling drainage catheter and adjacent mild fat stranding; pancreatic contour and attenuation are unremarkable. Adrenal glands: Unremarkable bilaterally. Kidneys and ureters: Normal size and morphology; no hydronephrosis or nephrolithiasis. Stomach and bowel: Stomach distended with food residue; right lumbar ileostomy with stable postsurgical bowel changes; no bowel obstruction identified. Peritoneum and mesentery: Stable mild mesenteric edema; interval resolution of the previously noted minimal free fluid along the greater curvature of the stomach; no new free fluid or free intraperitoneal air. Lymph nodes: No pathologic abdominopelvic lymphadenopathy. Vasculature: No abdominal aortic aneurysm. Abdominal wall/soft tissues: No focal collection aside from the described perisplenic drain. Osseous structures: Multilevel mild spondylosis; no acute osseous abnormality. Impression: * Stable perisplenic fluid collection with an indwelling drainage catheter and mild adjacent fat stranding???correlate with drain output, clinical status, and inflammatory markers to determine readiness for catheter removal; interval imaging or catheter study may be helpful if uncertainty persists. * Cirrhotic liver morphology. Recommend clinical and laboratory correlation and hepatology follow-up if not already established. * Gallbladder wall calcifications (punctate pattern) without biliary dilatation???correlate clinically; consider surgical consultation if porcelain gallbladder is suspected based on pattern and extent of calcification. * Residual trace left pleural effusion with adjacent atelectasis; stomach distention with food residue; right lumbar ileostomy with expected postsurgical changes; no new abdominopelvic free fluid or free air. * Compared with 09/06/2025 00:31 EST, the perisplenic collection is unchanged with the drain remaining in place, the previously described minimal perigastric free fluid has resolved, and the prior calcified right lower-lobe nodule is not visualized on this limited abdominal scan; otherwise, no significant interval change. /[place]
--- NOTE | 2025-09-09 14:00 | PN ---
NEPHROLOGY PROGRESS NOTE Date/Time Patient Seen: Sep 09, 2025 SUBJECTIVE: This is a 55-year-old female with a past medical history of diabetes mellitus type 2, liver cirrhosis, esophageal varices. She initially presented to the hospital with GI bleeding. The patient did have significant hyperkalemia upon admission and did require one course of dialysis. The patient's renal function has greatly improved. The patient had been having some hematochezia through the ostomy and the patient is being seen by Surgical Service She continues to be followed by wound care. The patient is being seen as a followup visit for all of the above. Renal function and electrolytes has been stable. She was seen in the medical floor, in no acute distress Multiple family members at the bedside REVIEW OF SYSTEMS: GENERAL: Positive for generalized weakness NEUROLOGIC: Negative for any blurry vision, blind spots, double vision, facial asymmetry, dysphagia, dysarthria, hemiparesis, hemisensory deficits, vertigo, ataxia. HEENT: Negative for any head trauma, neck trauma, neck stiffness, photophobia, phonophobia, sinusitis, rhinitis. CARDIAC: Negative for any chest pain, dyspnea on exertion, paroxysmal nocturnal dyspnea, peripheral edema. PULMONARY: Negative for any shortness of breath, wheezing, COPD, or TB exposure. GASTROINTESTINAL: Negative for any abdominal pain, nausea, vomiting, bright red blood per rectum, melena. GENITOURINARY: Negative for any dysuria, hematuria, incontinence. INTEGUMENTARY: Negative for any rashes, cuts, insect bites. RHEUMATOLOGIC: Negative for any joint pains, photosensitive rashes, history of vasculitis or kidney problems. HEMATOLOGIC: Negative for any abnormal bruising, frequent infections or bleeding. Vital Signs (last 8hr) Date Time Temp Pulse Resp B/P (MAP) Pulse Ox O2 Delivery O2 Flow Rate FiO2 09/08/25 09:16 97 Room Air* 0 21 09/08/25 08:00 98.2 78 18 122/69 97 Room Air PHYSICAL EXAM: GENERAL: Alert and oriented x 3. No acute distress. Well-nourished. EYES: EOMI. Anicteric. HENT: Moist mucous membranes. No scleral icterus. No cervical lymphadenopathy. LUNGS: Clear to auscultation bilaterally. No accessory muscle use. CARDIOVASCULAR: Regular rate and rhythm. No murmur. No JVD. ABDOMEN: Soft, non-tender and non-distended. No palpable masses. Ileostomy in place EXTREMITIES: No edema. Non-tender. SKIN: No rashes or lesions. Warm. NEUROLOGIC: No focal neurological deficits. CN II-XII grossly intact, but not individually tested. PSYCHIATRIC: Cooperative. Appropriate mood and affect. Current Medications Medications (Trade) Dose Ordered Sig/Gregory Route PRN Reason Start Time Stop Time Status Last Admin Dose Admin Acetaminophen (TYLenol 325MG TAB) 650 mg Q6H PRN PO MILD PAIN (1-3) 08/29/25 10:00 09/28/25 09:59 Acetaminophen/ Hydrocodone Bitart (NORco 5/325MG) 2 tab Q4H PRN PO SEVERE PAIN (7-10) 09/08/25 09:30 09/13/25 09:29 Albuterol (DUOneb) 1 udvial Q6H PRN IH SHORTNESS OF BREATH 08/29/25 10:00 09/28/25 09:59 Apixaban (EliquIS) 5 mg BID PO 09/08/25 21:00 10/08/25 20:59 Apixaban (EliquIS) 10 mg BID PO 09/07/25 22:00 09/08/25 01:42 DC 09/07/25 22:06 10 MG Apixaban (EliquIS) 10 mg BID PO 09/08/25 09:30 09/08/25 10:13 DC Atorvastatin Calcium (LIPItor 10MG) 5 mg HS PO 09/05/25 21:00 10/05/25 20:59 09/07/25 20:58 5 MG Calcium Gluconate (Calcium Gluc 1gm Vial) 1 gm ONCE IV 08/29/25 09:30 08/29/25 09:23 DC Cyclobenzaprine HCl (Cyclobenzaprine HCl) 5 mg TID PRN PO muscle spasms 09/05/25 11:00 10/05/25 10:59 Dextrose (D50w) 50 ml AD PRN IV HYPOGLYCEMIA PROTOCOL 08/29/25 10:00 09/28/25 09:59 Dextrose/Sodium Chloride 1,000 ml @ 0 mls/hr AD IV 08/29/25 12:30 08/29/25 16:05 DC Duloxetine HCl (CymbALTA 30 mg CAP) 30 mg BID PO 09/03/25 21:00 10/03/25 20:59 09/08/25 09:13 30 MG Enoxaparin Sodium (Lovenox (Pharmacy To Dose)) 1 unit Q12H SQ 09/06/25 13:30 09/06/25 13:21 DC Enoxaparin Sodium (Lovenox 60mg) 60 mg Q12H SQ 09/06/25 13:30 09/07/25 15:03 DC 09/07/25 14:29 60 MG Folic Acid (FOLic ACID 1 MG TABLET) 1 mg DAILY PO 09/08/25 09:00 10/08/25 08:59 09/08/25 09:13 1 MG Glucagon (Glucagon 1mg Kit) 1 mg AD PRN IM HYPOGLYCEMIA PROTOCOL 08/29/25 10:00 09/28/25 09:59 Home Med (Home Medication) (Medroxyprogesterone Acetate (Provera) 1 TAB) DAILY PO 09/06/25 09:00 10/06/25 08:59 Insulin Human Regular (humuLIN R 100 UNIT/ML 3ML) 5 unit ONCE IV 08/29/25 09:30 08/29/25 09:25 DC Insulin Human Regular (humuLIN R 100 UNIT/ML 3ML) INSULIN SLIDING SCAL... ACHS SQ 08/29/25 11:30 09/28/25 11:29 09/06/25 16:27 3 UNIT Insulin Human Regular 100 unit/ Sodium Chloride 101 ml @ 0 mls/hr PROTOCOL IV 08/29/25 12:30 08/29/25 16:05 DC Lactated Ringer's 1,000 ml @ 100 mls/hr Q10H IV 09/06/25 00:00 09/06/25 18:44 DC 09/06/25 08:35 100 MLS/HR Lactulose (Constulose 20gm/ 30ml Udcup) 20 gm BID PO 09/05/25 21:00 10/01/25 13:59 09/07/25 20:59 20 GM Lactulose (Constulose 20gm/ 30ml Udcup) 20 gm TID PO 09/01/25 14:00 09/05/25 10:44 DC 09/05/25 08:06 20 GM Magnesium Sulfate 50 ml @ 0 mls/hr PROTOCOL IV 08/29/25 12:30 08/29/25 16:05 DC Magnesium Sulfate 50 ml @ 0 mls/hr PROTOCOL IV 08/30/25 10:00 09/29/25 09:59 09/08/25 04:26 25 MLS/HR Magnesium Sulfate 50 ml @ 0 mls/hr PROTOCOL IV 09/02/25 13:30 09/02/25 13:04 DC Magnesium Sulfate 50 ml @ 0 mls/hr PROTOCOL IV 09/03/25 08:00 09/03/25 07:43 DC Meropenem (Merrem 500mg) 500 mg Q24H IVPB 08/29/25 10:00 08/31/25 09:59 DC 08/30/25 09:46 500 MG Meropenem (Merrem 500mg) 500 mg Q24H IVPB 08/31/25 23:30 09/10/25 23:29 09/07/25 22:27 500 MG Midodrine (PROAMatine 5 MG TABLET) 10 mg BID PO 09/01/25 09:00 08/31/25 18:36 DC Midodrine (PROAMatine 5 MG TABLET) 10 mg TID PO 09/01/25 09:00 10/01/25 08:59 09/08/25 09:13 10 MG Morphine Sulfate (morPHINE 2MG SYG) 0.5 mg Q4H PRN IVP SEVERE PAIN (7-10) 09/07/25 13:30 09/08/25 09:11 DC 09/08/25 04:27 0.5 MG Morphine Sulfate (morPHINE 2MG SYG) 1 mg Q4H PRN IVP SEVERE PAIN (7-10) 09/05/25 13:30 09/07/25 11:35 DC 09/06/25 23:40 1 MG Morphine Sulfate (morPHINE 2MG SYG) 2 mg Q4H PRN IVP SEVERE PAIN (7-10) 09/01/25 05:30 09/05/25 13:19 DC 09/05/25 04:28 2 MG Norepinephrine Bitartrate 32 mg/ Sodium Chloride 250 ml @ 0 mls/hr Q0M STAT IV 08/29/25 21:01 08/29/25 21:07 DC 08/29/25 21:13 0 MLS/HR Octreotide Acetate 1250 mcg/ Sodium Chloride 250 ml @ 0 mls/hr PROTOCOL IV 08/29/25 08:30 09/01/25 10:32 DC 08/31/25 10:18 5 MLS/HR Ondansetron HCl (zoFRAN 4MG INJ) 4 mg Q6H PRN IVP NAUSEA/VOMITING 08/29/25 09:30 09/28/25 09:29 09/07/25 22:27 4 MG Pantoprazole Sodium (PROTonix 40MG INJ) 40 mg BID IVP 09/01/25 21:00 09/03/25 14:32 DC 09/03/25 09:16 40 MG Pantoprazole Sodium (PROTonix 40MG INJ) 40 mg BID IVP 09/06/25 09:00 10/06/25 08:59 09/08/25 09:12 40 MG Pantoprazole Sodium (PROTonix 40MG TAB) 40 mg DAILY PO 09/04/25 09:00 09/06/25 00:03 DC 09/05/25 08:06 40 MG Pantoprazole Sodium 80 mg/ Sodium Chloride 100 ml @ 10 mls/hr Q10H IV 08/29/25 08:30 09/01/25 10:32 DC 09/01/25 05:50 10 MLS/HR Pharmacy Profile Note (Pharmacy Communication) 1 each ONCE MISC 08/29/25 09:30 08/29/25 09:35 DC Pharmacy Profile Note (Pharmacy Communication) 1 each ONCE MISC 08/31/25 23:30 08/31/25 23:17 DC Potassium Chloride 100 ml @ 50 mls/hr AD PRN IV POTASSIUM PROTOCOL 08/29/25 12:30 09/28/25 12:29 09/02/25 06:26 50 MLS/HR Psyllium Hydrophilic Mucilloid (Metamucil) 1 tbs TID PO 09/04/25 14:00 10/04/25 13:59 09/08/25 09:12 1 TBS Sodium Bicarbonate 150 meq/Dextrose 1,150 ml @ 125 mls/hr Q9H12M IVP 08/29/25 10:00 08/30/25 10:12 DC 08/30/25 08:07 125 MLS/HR Sodium Bicarbonate (Sodium Bicarbonate) 1,300 mg TID PO 09/07/25 14:00 09/08/25 18:00 09/08/25 09:13 1,300 MG Sodium Chloride 250 ml @ 0 mls/hr AD IV 08/29/25 17:30 09/28/25 17:29 Sodium Chloride 1,000 ml @ 0 mls/hr Q0M IV 08/29/25 16:00 08/29/25 16:03 DC Sodium Chloride 1,000 ml @ 0 mls/hr Q0M IV 08/29/25 16:00 09/01/25 08:01 DC 08/29/25 16:10 500 MLS/HR Sodium Chloride 1,000 ml @ 125 mls/hr Q8H IV 08/29/25 09:30 08/29/25 09:57 DC Sodium Chloride 1,000 ml @ 150 mls/hr Q6H40M IV 08/29/25 18:30 09/01/25 09:29 DC 08/31/25 16:16 150 MLS/HR Sodium Chloride 1,000 ml @ 200 mls/hr PROTOCOL IV 08/29/25 12:30 08/29/25 16:05 DC Sodium Chloride 1,000 ml @ 999 mls/hr Q1H1M IV 08/29/25 09:30 08/29/25 09:06 DC Thiamine HCl (Vitamin B-1) 200 mg Q12H IVP 08/29/25 09:30 09/02/25 09:30 DC 09/02/25 08:56 200 MG Vitamin B Complex (Vitamin B-12) 1,000 mcg DAILY PO 09/08/25 09:00 10/08/25 08:59 09/08/25 09:13 1,000 MCG LABORATORY: [ ] Hematology Labs: Test 09/09/25 04:37 Range/Units White Blood Count 3.0 L 4.8-10.8 K/uL Red Blood Count 2.95 L 4.00-5.50 MIL/uL Hemoglobin 9.2 L 12.0-16.0 g/dL Hematocrit 28.1 L 36-48 % Mean Corpuscular Volume 95.3 79-99 fL Mean Corpuscular Hemoglobin 31.2 27.0-33.0 pg Mean Corpuscular Hemoglobin Concent 32.7 32.0-36.0 g/dL Red Cell Distribution Width 18.2 H 11.0-15.5 % Platelet Count 139 130-400 K/uL Mean Platelet Volume 9.9 7.5-10.5 fL Immature Granulocyte % (Auto) 0.7 0-1 % Neutrophils (%) (Auto) 49.8 40.0-77.0 % Lymphocytes (%) (Auto) 34.9 21.0-51.0 % Monocytes (%) (Auto) 9.5 3.0-13.0 % Eosinophils (%) (Auto) 4.4 0.0-8.0 % Basophils (%) (Auto) 0.7 0.0-5.0 % Neutrophils # (Auto) 1.5 L 1.8-7.7 K/uL Lymphocytes # (Auto) 1.0 1.0-4.8 K/uL Monocytes # (Auto) 0.3 0.1-1.0 K/uL Eosinophils # (Auto) 0.13 0.00-0.70 K/uL Basophils # (Auto) 0.02 0.00-0.20 K/uL Absolute Immature Granulocyte (auto 0.02 0-1 K/uL Segmented Neutrophils % 61 40-70 % Lymphocytes % (Manual) 26 22-44 % Monocytes % (Manual) 6 2-9 % Eosinophils % (Manual) 7 H 1-6 % Nucleated Red Blood Cells 0.0 0.0-0.19 % Differential Comment MANUAL DIFFERENTIAL White Cell Morphology Comment See comments Platelet Morphology Comment ADEQUATE Red Blood Cell Morphology ANISO 1+ Chemistry Labs: Test 09/09/25 11:47 09/09/25 04:37 09/08/25 01:50 Range/Units Whole Blood Glucose 95 70-110 MG/DL Sodium Level 137 136-145 mmol/L Potassium Level 4.0 3.5-5.1 mmol/L Chloride Level 109 101-111 mmol/L Carbon Dioxide Level 19 L 21-32 mmol/L Blood Urea Nitrogen 13 7-18 mg/dL Creatinine 0.7 0.5-1.0 mg/dL Glomerular Filtration Rate Calc 101 >90 mL/min Random Glucose 84 70-105 mg/dL Total Calcium 8.3 L 8.5-10.1 mg/dL Magnesium Level 1.80 1.80-2.40 mg/dL Albumin 2.5 L 3.5-5.0 g/dL DIAGNOSTICS / RADIOLOGY: [facility] [id number] [place] [id number] IMAGING REPORT Signed PATIENT: DALLAS BUCHANAN MR#: [id number] : 1970 SEX: F AGE: 55 LOCATION: 3AH ORDER 230 STATUS: ADM IN REPORT#: [id number] SERVICE 0600 REASON: EVALUATE LUQ PIGRTAIL FOR POSSIBLE REMOVAL ORDERING PHYSICIAN: FE BRODY MD PROCEDURE: ABDO WO - CT ABDOMEN W/O CONTRAST EXAM: CT ABDOMEN WITHOUT INTRAVENOUS CONTRAST Technique: Multislice helical computed tomography from the diaphragms through the inguinal region with thin-section axial images and coronal/sagittal reformations; dose reduction applied per ALARA. CTDIvol 6.5 mGy; DLP 204.50 mGy???cm. Contrast: No intravenous contrast administered. Clinical Information: Evaluate left upper-quadrant pigtail catheter for possible removal. Comparison: CT abdomen without contrast 09/06 00:31 EST Findings: Lung bases: Residual trace left pleural effusion with adjacent atelectasis; previously described calcified right lower-lobe pulmonary nodule is not visualized on this limited abdominal coverage. Liver: Nodular hepatic contour consistent with cirrhosis; no focal hepatic lesion identified on this noncontrast study. Gallbladder and biliary tree: Multiple punctate calcifications along the gallbladder wall; no biliary ductal dilatation. Pancreas and spleen: Stable perisplenic fluid collection with an indwelling drainage catheter and adjacent mild fat stranding; pancreatic contour and attenuation are unremarkable. Adrenal glands: Unremarkable bilaterally. Kidneys and ureters: Normal size and morphology; no hydronephrosis or nephrolithiasis. Stomach and bowel: Stomach distended with food residue; right lumbar ileostomy with stable postsurgical bowel changes; no bowel obstruction identified. Peritoneum and mesentery: Stable mild mesenteric edema; interval resolution of the previously noted minimal free fluid along the greater curvature of the stomach; no new free fluid or free intraperitoneal air. Lymph nodes: No pathologic abdominopelvic lymphadenopathy. Vasculature: No abdominal aortic aneurysm. Abdominal wall/soft tissues: No focal collection aside from the described perisplenic drain. Osseous structures: Multilevel mild spondylosis; no acute osseous abnormality. Impression: * Stable perisplenic fluid collection with an indwelling drainage catheter and mild adjacent fat stranding???correlate with drain output, clinical status, and inflammatory markers to determine readiness for catheter removal; interval imaging or catheter study may be helpful if uncertainty persists. * Cirrhotic liver morphology. Recommend clinical and laboratory correlation and hepatology follow-up if not already established. * Gallbladder wall calcifications (punctate pattern) without biliary dilatation???correlate clinically; consider surgical consultation if porcelain gallbladder is suspected based on pattern and extent of calcification. * Residual trace left pleural effusion with adjacent atelectasis; stomach distention with food residue; right lumbar ileostomy with expected postsurgical changes; no new abdominopelvic free fluid or free air. * Compared with 09/06/2025 00:31 EST, the perisplenic collection is unchanged with the drain remaining in place, the previously described minimal perigastric free fluid has resolved, and the prior calcified right lower-lobe nodule is not visualized on this limited abdominal scan; otherwise, no significant interval change. /[facility] DICTATED BY: EDWIGE LEDESMA MD DATE: 09/09/251409 ELECTRONICALLY SIGNED BY: EDWIGE LEDESMA MD DATE: 09/09/251409 PATIENT: DALLAS BUCHANAN MR#: [id number] : 1970 SEX: F AGE: 55 LOCATION: 3AH ORDER 2351 STATUS: ADM IN REPORT#: [id number] SERVICE 2346 REASON: abdiominal pain ORDERING PHYSICIAN: CYNTHIA ALEXANDER PROCEDURE: ABDO WO - CT ABDOMEN W/O CONTRAST EXAMINATION CT Abdomen Without IV Contrast CLINICAL HISTORY Patient presents with abdominal pain. TECHNIQUE Axial computed tomography images of the abdomen were obtained without intravenous contrast. CONTRAST No IV contrast administered. COMPARISON 09/01/2025. FINDINGS: LUNG BASES: Residual trace left pleural effusion with adjacent atelectasis. Interval resolution of previously described mild right pleural effusion. Stable calcified nodule in the right lower lobe. LIVER: Nodular hepatic contour consistent with cirrhosis. GALLBLADDER AND BILE DUCTS: Multiple punctate calcifications in the gallbladder wall. No biliary ductal dilatation. PANCREAS AND SPLEEN: Stable perisplenic fluid collection with drainage catheter in situ and adjacent fat stranding. ADRENAL GLANDS: Unremarkable. KIDNEYS AND URETERS: Normal in size and morphology. No hydronephrosis or nephrolithiasis. STOMACH AND BOWEL: Stomach distended with food residue. Right lumbar ileostomy with stable postsurgical bowel changes. Uncomplicated colonic diverticula. A component of mild constipation. PERITONEUM: Stable mild mesenteric edema. Significant interval resolution of the previously demonstrated minimal free fluid along the greater curvature of the stomach. No new free fluid or free air. LYMPH NODES: No significant lymphadenopathy. VASCULATURE: No abdominal aortic aneurysm. BONES: Multilevel mild spondylosis. IMPRESSION: Nodular cirrhotic liver. Stable perisplenic fluid collection with drainage catheter in situ and adjacent fat stranding. Right lumbar ileostomy with stable postsurgical bowel changes. Residual trace left pleural effusion with adjacent atelectasis. Interval resolution of the right pleural effusion. Stable calcified right lower lobe pulmonary nodule. Stomach distended with food residue. Uncomplicated colonic diverticula with mild constipation. Stable mild mesenteric edema with interval resolution of previously described minimal free fluid. Multiple punctate calcifications in the gallbladder wall, likely cholesterolosis. /[facility] DICTATED BY: ELDON MILLER Jr., MD DATE: 09/06/25233 ELECTRONICALLY SIGNED BY: ELDON MILLER Jr., MD DATE: 09/06/25233 PATIENT: DALLAS BUCHANAN MR#: [id number] : 1970 SEX: F AGE: 55 LOCATION: [facility] ORDER 1319 STATUS: ADM IN REPORT#: [id number] SERVICE 1316 REASON: R/o DVT versus SVT ORDERING PHYSICIAN: SONJA PERALTA MD PROCEDURE: VENOUS UNI - US VENOUS DOPPLER UNILATERAL ADDENDUM REPORT ADDENDUM: Results were shared by telephone at 10:59am on 09-06-25 and acknowledged by Patients Nurse Ms. Britt Robert /[facility] EXAMINATION: SPECTRAL DOPPLER ULTRASOUND EXAMINATION OF THE RIGHT UPPER EXTREMITY VEINS. CLINICAL HISTORY: To rule out DVT. COMPARISON: None. TECHNIQUE: Grayscale, color, and spectral Doppler images of the right upper extremity veins are submitted. FINDINGS: The internal jugular, subclavian, basilic, and brachial veins are patent. These veins show normal flow with physiological changes of phasicity and augmentation. The right axillary vein and cephalic veins are non-compressible and there is no flow on augmentation. IMPRESSION: Acute deep vein thrombosis in the right axillary vein. Right cephalic vein thrombosis. There is no deep vein thrombosis in the remainder of the right upper extmreiyt, /[facility] DICTATED BY: TOBI LEAHY MD DATE: 09/06/251154 ELECTRONICALLY SIGNED BY: DATE: EXAMINATION: SPECTRAL DOPPLER ULTRASOUND EXAMINATION OF THE RIGHT UPPER EXTREMITY VEINS. CLINICAL HISTORY: To rule out DVT. COMPARISON: None. TECHNIQUE: Grayscale, color, and spectral Doppler images of the right upper extremity veins are submitted. FINDINGS: The internal jugular, subclavian, basilic, and brachial veins are patent. These veins show normal flow with physiological changes of phasicity and augmentation. The right axillary vein and cephalic veins are non-compressible and there is no flow on augmentation. IMPRESSION: Acute deep vein thrombosis in the right axillary vein. Right cephalic vein thrombosis. There is no deep vein thrombosis in the remainder of the right upper extmreiyt, /[facility] DICTATED BY: TOBI LEAHY MD DATE: 09/06/25941 ELECTRONICALLY SIGNED BY: TOBI LEAHY MD DATE: 09/06/25941 PATIENT: DALLAS BUCHANAN MR#: [id number] : 1970 SEX: F AGE: 55 LOCATION: 3AH ORDER 2300 STATUS: ADM IN REPORT#: [id number] SERVICE 0600 REASON: hypoxic ORDERING PHYSICIAN: LOBO RICKS PROCEDURE: CXR1VW - CHEST 1VW EXAM: CR Chest, 1 View (Portable, Supine). CLINICAL HISTORY: Chest pain. COMPARISON: CR Chest, 2 View ??? 09/01/2025 01:13 AM EDT. FINDINGS: LUNGS: Area of haziness in left lower zone-Remained stable. Rest of the lungs are clear. No focal consolidation, pulmonary edema, or acute infiltrate. PLEURAL SPACES: No pleural effusion or pneumothorax. MEDIASTINUM: Cardiac size and mediastinal contours within normal limits. No acute osseous abnormality. LINES/DEVICES: Monitoring leads noted. No new devices identified. IMPRESSION: Area of haziness in left lower zone likely airspace opacity-Stable compared to previous radiograph. /[facility] DICTATED BY: TOBI LEAHY MD DATE: 09/03/251137 ELECTRONICALLY SIGNED BY: TOBI LEAHY MD DATE: 09/03/251137 PATIENT: DALLAS BUCHANAN MR#: [id number] : 1970 SEX: F AGE: 55 LOCATION: 2CV ORDER 1231 STATUS: ADM IN REPORT#: [id number] SERVICE 1227 REASON: EVALUATE LUQ PIGRTAIL FOR POSSIBLE REMOVAL ORDERING PHYSICIAN: SUSAN JHAVERI MD PROCEDURE: ABDO WO - CT ABDOMEN W/O CONTRAST ADDENDUM REPORT ADDENDUM: Results were shared by telephone at 11:21 pm on 09-01-25 and acknowledged by Patient's Nurse Jabier Bangrua. /[facility] EXAM: CT ABDOMEN WITHOUT INTRAVENOUS CONTRAST Technique: Multislice helical computed tomography of the abdomen was performed from the diaphragms through the iliac crests with axial images and coronal/sagittal reformations. Dose optimization per ALARA. Contrast: No intravenous contrast administered. Contrast Impression: Noncontrast technique limits assessment of enhancement-dependent pathology and characterization of fluid collections. Clinical Information: Evaluation of left upper quadrant pigtail drain for possible removal. Comparison: CT abdomen/pelvis without contrast dated 08/29/2025. Findings: Lung bases: Interval development of small bilateral pleural effusions with dependent subsegmental atelectasis in the lower lobes. Previously described tiny calcified nodules are not conspicuous on the current noncontrast images. Liver: Morphologic features of cirrhosis are unchanged. No focal hepatic lesion identified on this noncontrast study. Gallbladder and bile ducts: Decompressed gallbladder with a cholecystostomy tube in place, stable. No biliary ductal dilatation. Pancreas: Normal contour without peripancreatic inflammatory change. Spleen: Infrasplenic fluid collection adjacent to the splenic inferior pole measuring approximately 2.7 ??? 3.5 ??? 6.4 cm (previously 2.7 ??? 2.2 ??? 5.1 cm), with a pigtail drainage catheter in situ and mild adjacent fat stranding. Adrenal glands: Normal morphology bilaterally. Kidneys and ureters: Kidneys within normal size and contour; no hydronephrosis or hydroureter; no nephrolithiasis. Urinary bladder: Dueñas catheter in place with small intraluminal gas foci, likely iatrogenic; bladder otherwise unremarkable. Stomach and bowel: Right iliac fossa ileostomy defect ( 2.4 cm) and postoperative bowel changes, stable. No evidence of bowel obstruction, enteritis, or colitis. Peritoneum and mesentery: New minimal free fluid predominantly along the greater curvature of the stomach with mild mesenteric edema (anasarca). No free intraperitoneal air. Lymph nodes: No pathologic abdominopelvic lymphadenopathy. Vasculature: Abdominal aorta normal in caliber. Abdominal wall/soft tissues: Expected postoperative changes at the ostomy site; otherwise unremarkable. Osseous structures: No acute or aggressive osseous abnormality; mild degenerative changes in the visualized spine. Impression: * Infrasplenic collection with indwelling pigtail drain has increased in size compared with 08/29/2025 (now 2.7 ??? 3.5 ??? 6.4 cm from 2.7 ??? 2.2 ??? 5.1 cm) with mild surrounding fat stranding???ongoing collection persists. Drain removal is not advised at this time based on interval enlargement; recommend interventional radiology review for catheter position/patency, consideration of catheter upsizing or repositioning, and correlation with output and culture. * New small bilateral pleural effusions with dependent basilar atelectasis. Monitor clinically; consider diuresis or follow-up imaging as indicated. * Cirrhotic hepatic morphology, unchanged. * Decompressed gallbladder with cholecystostomy tube in place, stable; no biliary ductal dilatation. * Minimal ascites and mild mesenteric edema (anasarca), new from prior. * Dueñas catheter with small intravesical gas, likely iatrogenic. * No bowel obstruction, hydronephrosis, or nephrolithiasis identified. /[facility] DICTATED BY: EDWIGE LEDESMA MD DATE: 09/01/25 2330 ELECTRONICALLY SIGNED BY: DATE: EXAM: CT ABDOMEN WITHOUT INTRAVENOUS CONTRAST Technique: Multislice helical computed tomography of the abdomen was performed from the diaphragms through the iliac crests with axial images and coronal/sagittal reformations. Dose optimization per ALARA. Contrast: No intravenous contrast administered. Contrast Impression: Noncontrast technique limits assessment of enhancement-dependent pathology and characterization of fluid collections. Clinical Information: Evaluation of left upper quadrant pigtail drain for possible removal. Comparison: CT abdomen/pelvis without contrast dated 08/29/2025. Findings: Lung bases: Interval development of small bilateral pleural effusions with dependent subsegmental atelectasis in the lower lobes. Previously described tiny calcified nodules are not conspicuous on the current noncontrast images. Liver: Morphologic features of cirrhosis are unchanged. No focal hepatic lesion identified on this noncontrast study. Gallbladder and bile ducts: Decompressed gallbladder with a cholecystostomy tube in place, stable. No biliary ductal dilatation. Pancreas: Normal contour without peripancreatic inflammatory change. Spleen: Infrasplenic fluid collection adjacent to the splenic inferior pole measuring approximately 2.7 ??? 3.5 ??? 6.4 cm (previously 2.7 ??? 2.2 ??? 5.1 cm), with a pigtail drainage catheter in situ and mild adjacent fat stranding. Adrenal glands: Normal morphology bilaterally. Kidneys and ureters: Kidneys within normal size and contour; no hydronephrosis or hydroureter; no nephrolithiasis. Urinary bladder: Dueñas catheter in place with small intraluminal gas foci, likely iatrogenic; bladder otherwise unremarkable. Stomach and bowel: Right iliac fossa ileostomy defect ( 2.4 cm) and postoperative bowel changes, stable. No evidence of bowel obstruction, enteritis, or colitis. Peritoneum and mesentery: New minimal free fluid predominantly along the greater curvature of the stomach with mild mesenteric edema (anasarca). No free intraperitoneal air. Lymph nodes: No pathologic abdominopelvic lymphadenopathy. Vasculature: Abdominal aorta normal in caliber. Abdominal wall/soft tissues: Expected postoperative changes at the ostomy site; otherwise unremarkable. Osseous structures: No acute or aggressive osseous abnormality; mild degenerative changes in the visualized spine. Impression: * Infrasplenic collection with indwelling pigtail drain has increased in size compared with 08/29/2025 (now 2.7 ??? 3.5 ??? 6.4 cm from 2.7 ??? 2.2 ??? 5.1 cm) with mild surrounding fat stranding???ongoing collection persists. Drain removal is not advised at this time based on interval enlargement; recommend interventional radiology review for catheter position/patency, consideration of catheter upsizing or repositioning, and correlation with output and culture. * New small bilateral pleural effusions with dependent basilar atelectasis. Monitor clinically; consider diuresis or follow-up imaging as indicated. * Cirrhotic hepatic morphology, unchanged. * Decompressed gallbladder with cholecystostomy tube in place, stable; no biliary ductal dilatation. * Minimal ascites and mild mesenteric edema (anasarca), new from prior. * Dueñas catheter with small intravesical gas, likely iatrogenic. * No bowel obstruction, hydronephrosis, or nephrolithiasis identified. /[facility]gie DICTATED BY: EDWIGE LEDESMA MD DATE: 09/01/252258 ELECTRONICALLY SIGNED BY: EDWIGE LEDESMA MD DATE: 09/01/252258 PATIENT: DALLAS BUCHANAN MR#: [id number] : 1970 SEX: F AGE: 55 LOCATION: 2CV ORDER 1130 STATUS: ADM IN REPORT#: [id number] SERVICE [id number] REASON: Left lower lung lobe opacities ORDERING PHYSICIAN: SONJA PERALTA MD PROCEDURE: CHEST WO - CT CHEST W/O CONTRAST EXAM: CT CHEST WITHOUT INTRAVENOUS CONTRAST Technique: Helical computed tomography of the chest from thoracic inlet through the upper abdomen without intravenous contrast, with axial images and coronal/sagittal reformations. Dose optimization performed in accordance with ALARA. Clinical Information: Left lower lung lobe opacities. Comparison: Chest radiograph dated 09/01/2025 at 05:46 EDT. Findings: Soft tissues: Unremarkable. Lungs and large airways: Central airways are patent. Subsegmental consolidation in the posterior segments of both lower lobes. Additional subsegmental consolidation in the superior segment of the left upper lobe. Linear atelectatic bands in the superior lingular segment and posterior segment of the left upper lobe. A calcified pulmonary nodule measures 5 mm in the right lower lobe (series 3, image 29). Pleura: Minimal bilateral pleural effusions. No pneumothorax. Heart and pericardium: Cardiac size within normal limits. No pericardial effusion. Aorta: Normal course and caliber on this noncontrast study. Pulmonary arteries: Evaluation limited without contrast; no large central filling defect is seen on this noncontrast exam. Lymph nodes: No pathologically enlarged mediastinal or hilar lymph nodes. Mediastinum and toya: No mass identified. Chest wall and lower neck: No acute abnormality. Bones/joints: No acute osseous abnormality. Upper abdomen: Visualized portions without acute abnormality; detailed abdominal findings are reported separately. Impression: * Subsegmental consolidation in the posterior segments of both lower lobes and in the superior segment of the left upper lobe with minimal bilateral pleural effusions???most compatible with multifocal atelectasis versus infection/aspiration in the appropriate clinical context. Recommend clinical correlation and short-interval follow-up chest imaging to document resolution. * Benign-appearing calcified pulmonary nodule in the right lower lobe measuring 5 mm (series 3, image 29), consistent with a granuloma; no additional suspicious nodules identified. * No pneumothorax or acute cardiomediastinal abnormality identified on this noncontrast examination. /Angie DICTATED BY: EDWIGE LEDESMA MD DATE: 09/01/252255 ELECTRONICALLY SIGNED BY: EDWIGE LEDESMA MD DATE: 09/01/252255 PATIENT: DALLAS BUCHANAN MR#: [id number] : 1970 SEX: F AGE: 55 LOCATION: 2CV ORDER 99 STATUS: ADM IN REPORT#: [id number] SERVICE 9 REASON: hypoxic ORDERING PHYSICIAN: LOBO RICKS PROCEDURE: CXR1VW - CHEST 1VW EXAM: CR Chest, 1 View (Portable, Supine). CLINICAL HISTORY: Chest pain. COMPARISON: CR Chest, 2 View ??? 08/31/2025 01:13 AM EDT. FINDINGS: LUNGS: Mild prominence of bronchovascular markings in bilateral lower zone. Area of haziness in left lower zone. Lungs are clear. No focal consolidation, pulmonary edema, or acute infiltrate. PLEURAL SPACES: No pleural effusion or pneumothorax. MEDIASTINUM: Cardiac size and mediastinal contours within normal limits. Right internal jugular central venous catheter remains in similar position with the tip projecting over the distal superior vena cava, unchanged from prior. BONES: No acute osseous abnormality. LINES/DEVICES: Right IJ central venous catheter as described. Monitoring leads noted. No new devices identified. IMPRESSION: * Stable position of right IJ central venous catheter with tip at distal SVC. * Area of haziness in left lower zone likely airspace opacity-New finding compared to previous radiograph. * Mild prominence of bronchovascular markings in bilateral lower zone-New finding compared to previous radiograph. Signed By: EDWIGE LEDESMA M.D. /[facility]gie DICTATED BY: TOBI LEAHY MD DATE: 09/01/251518 ELECTRONICALLY SIGNED BY: TOBI LEAHY MD DATE: 09/01/251518 PATIENT: DALLAS BUCHANAN MR#: [id number] : 1970 SEX: F AGE: 55 LOCATION: 2CV ORDER 99 STATUS: ADM IN REPORT#: [id number] SERVICE 9 REASON: hypoxic ORDERING PHYSICIAN: LOBO RICKS PROCEDURE: CXR1VW - CHEST 1VW EXAM: CR Chest, 1 View (Portable, Supine). CLINICAL HISTORY: Chest pain. COMPARISON: CR Chest, 2 View ??? 08/30/2025 01:13 AM EDT. FINDINGS: LUNGS: Lungs are clear. No focal consolidation, pulmonary edema, or acute infiltrate. PLEURAL SPACES: No pleural effusion or pneumothorax. MEDIASTINUM: Cardiac size and mediastinal contours within normal limits. Right internal jugular central venous catheter remains in similar position with the tip projecting over the distal superior vena cava, unchanged from prior. BONES: No acute osseous abnormality. LINES/DEVICES: Right IJ central venous catheter as described. Monitoring leads noted. No new devices identified. IMPRESSION: * Stable position of right IJ central venous catheter with tip at distal SVC. * No pneumothorax or acute cardiopulmonary abnormality. * No significant interval change compared with 08/30/2025 . /Angie DICTATED BY: EDWIGE LEDESMA MD DATE: 08/31/251851 ELECTRONICALLY SIGNED BY: EDWIGE LEDESMA MD DATE: 08/31/251851 PATIENT: DALLAS BUCHANAN MR#: [id number] : 1970 SEX: F AGE: 55 LOCATION: 2CV ORDER 8 STATUS: ADM IN REPORT#: [id number] SERVICE 99 REASON: severe renal failure ORDERING PHYSICIAN: BRADEN CONTRERAS MD PROCEDURE: RENAL - US RENAL SONOGRAM EXAM: RENAL AND URINARY BLADDER ULTRASOUND Technique: Grayscale and color Doppler sonography of both kidneys and the urinary bladder was performed. Study quality is adequate. Evaluation of the bladder and ureteral jets is limited by decompression from an indwelling catheter. Clinical Information: Severe renal failure. Findings: Right kidney: Measures 10.3 ??? 5.3 ??? 4.2 centimeters. Renal cortical thickness and echogenicity are within expected limits for technique. No focal mass is identified. No hydronephrosis. No renal calculi. No perinephric fluid collection. Left kidney: Measures 11.0 ??? 4.8 ??? 3.2 centimeters. The renal parenchyma is diffusely increased in echogenicity relative to the adjacent liver and spleen. No focal mass is identified. No hydronephrosis. No renal calculi. No perinephric fluid collection. Urinary bladder: Decompressed with a Dueñas catheter in situ. Bladder wall measures approximately 3 millimeters, which may appear relatively thick due to underdistention. No intraluminal mass or debris is identified on the limited evaluation. Impression: * Left kidney demonstrates increased parenchymal echogenicity, a nonspecific finding commonly associated with medical renal disease in the setting of renal failure. * No hydronephrosis or renal calculi identified bilaterally. * Decompressed urinary bladder with Dueñas catheter in place; apparent wall thickening likely related to underdistention. /[place] DICTATED BY: EDWIGE LEDESMA MD DATE: 08/29/252248 ELECTRONICALLY SIGNED BY: EDWIGE LEDESMA MD DATE: 08/29/252248 PATIENT: DALLAS BUCHANAN MR#: [id number] : 1970 SEX: F AGE: 55 LOCATION: 2CV ORDER 1540 STATUS: ADM IN REPORT#: [id number] SERVICE 153 REASON: central line placement ORDERING PHYSICIAN: LOBO RICKS PROCEDURE: CXR1VW - CHEST 1VW EXAM: CR Chest, 2 View. CLINICAL HISTORY: central line placement COMPARISON: None provided. FINDINGS: Right IJ central venous catheter tip projects at the distal SVC. Right peripheral line overlies expected location of the right axillary vessels. LUNGS: The lungs show no infiltrate or other acute finding. Mild left basilar atelectasis. PLEURAL SPACES: No pleural effusion or pneumothorax. MEDIASTINUM: Cardiac size and mediastinal contours within normal limits. BONES: No aggressive appearing osseous lesion seen. Pigtail drainage catheter overlies the right upper quadrant. IMPRESSION: 1. Right IJ central venous catheter tip appropriately positioned in the distal SVC. 2. No acute cardiopulmonary findings. /[place] DICTATED BY: ELDON MILLER Jr., MD DATE: 08/29/251744 ELECTRONICALLY SIGNED BY: ELDON MILLER Jr., MD DATE: 08/29/251744 PATIENT: ADLLAS BUCHANAN MR#: [id number] : 1970 SEX: F AGE: 55 LOCATION: 2CV ORDER 9 STATUS: ADM IN REPORT#: [id number] SERVICE 7 REASON: coffee ground emesis, hx of abdominal drain, nausea, vomiting, hx of cirrho ORDERING PHYSICIAN: BRADEN CONTRERAS MD PROCEDURE: ABD PEL WO - CT ABDOMEN/PELVIS W/O CONTRAST EXAM: CT Abdomen and Pelvis Without IV contrast CLINICAL HISTORY: coffee ground emesis, hx of abdominal drain, nausea, vomiting, hx of cirrho TECHNIQUE: Axial computed tomography images of the abdomen and pelvis without intravenous contrast. CONTRAST: No IV contrast. COMPARISON: Study dated 08/23/25. FINDINGS: LUNG BASES: Tiny calcified nodules in the posterior basal segment of the right lower lobe. There is mild dependent airspace disease within the bilateral lower lobes that is presumed to reflect atelectasis. No pleural effusions are seen. LIVER: There is cirrhotic hepatic morphology. Several small esophageal varices are noted. GALLBLADDER AND BILE DUCTS: The gallbladder is decompressed with a cholecystostomy tube in place. No biliary ductal dilatation is evident. PANCREAS: Unremarkable. SPLEEN: 2.7 x 2.2 x 5.1 cm infrasplenic collection with adjacent fat stranding and pigtail tube in place. ADRENAL GLANDS: Unremarkable. KIDNEYS, URETERS, AND BLADDER: The kidneys appear within normal limits. There is no hydronephrosis or hydroureter. No urinary calculi are seen. Dueñas's bulb in the urinary bladder with few air foci. STOMACH AND BOWEL: 2.4 cm ileostomy defect in the right iliac fossa and postoperative changes in the bowel loops. No evidence of bowel obstruction. No evidence suggesting enteritis or colitis. APPENDIX: No evidence of acute appendicitis on CT examination. PERITONEUM: No free fluid. No free air. LYMPH NODES: No lymphadenopathy is evident. REPRODUCTIVE: Unremarkable as visualized. VASCULATURE: No evidence of abdominal aortic aneurysm. BONES: No aggressive appearing osseous lesion. No acute osseous pathology evident. Mild degenerative changes in the spine. IMPRESSION: 1. Cirrhotic hepatic morphology. Several small esophageal varices are noted. 2. 2.7 x 2.2 x 5.1 cm infrasplenic collection with adjacent fat stranding and pigtail tube in place. 3. Cholecystostomy tube in decompressed gallbladder. 4. Ileostomy in right iliac fossa with postoperative changes. /Angie DICTATED BY: ELDON MILLER Jr., MD DATE: 08/29/251619 ELECTRONICALLY SIGNED BY: ELDON MILLER Jr., MD DATE: 08/29/251619 PATIENT: DALLAS BUCHANAN MR#: [id number] : 1970 SEX: F AGE: 55 LOCATION: EDHIP ORDER 6 STATUS: ADM IN REPORT#: [id number] SERVICE 08 REASON: sob ORDERING PHYSICIAN: MILAD WYNN MD PROCEDURE: CXR1VW - CHEST 1VW EXAM: CR Chest, 1 View. CLINICAL HISTORY: sob COMPARISON: None provided. FINDINGS: LUNGS: There is no mass, infiltrate, or acute pulmonary abnormality. Mild left basilar atelectasis and/or parenchymal scarring. PLEURAL SPACES: No evidence of pleural effusion or pneumothorax. MEDIASTINUM: Cardiac size and mediastinal contours within normal limits. BONES: No aggressive appearing osseous lesion seen. IMPRESSION: No acute cardiopulmonary pathology is evident. /[place] DICTATED BY: ELDON MILLER Jr., MD DATE: 08/29/251103 ELECTRONICALLY SIGNED BY: ELDON MILLER JDATE: 08/29/251103 ASSESSMENT: Severe hyperkalemia Anemia Acute renal failure Hyponatremia Acute upper GI bleeding- Hematemesis, dark output from ileostomy bag, POA, Improving Acute DVT of right axillary vein and right cephalic vein High output from ileostomy bag, not POA Hemorrhagic shock versus hypovolemic shock, POA, Resolved Hypovolemic hypochloremic hyponatremia, POA, Resolved Severe hyperkalemia, POA, Resolved Hyperammonemia, POA, Improving Lactic acidosis, POA, Resolved Hyperphosphatemia, POA, Resolved Starvation Ketoacidosis, POA Rule out occult sepsis, POA Recent extended hospitalization in [facility], 07/20/2025- 08/25/2025 for sepsis, acute abdomen, POA Severe Dehydration, POA, Improving History of esophageal varices, POA Acute Decompensated liver cirrhosis, POA Hx of acute cholecystitis, s/p cholecystostomy tube placement on 08/02/2025. Perisplenic abscess, s/p CT-guided drainage placement on 08/09/2025. 2.7 x 2.2 x 5.1 cm infrasplenic collection History of gastritis, POA Hx of Generalized peritonitis with ESBL E coli infection, POA Moderate Protein calorie malnutrition POA History of bilious peritonitis with small colonic anastomosis perforation s/p diagnostic laparoscopy, abdominal washout, ileostomy creation by Dr. Jhaveri, 07/21/2025 Hx of DM II, POA Recent colovesical fistula repair with sigmoid colon resection and anastomosis on PLAN: Labs, diagnostic, radiologic exams reviewed and interpreted by myself and supervising physician. We have reviewed external records in detail Require close monitoring of renal function and electrolytes Order CBC, CMP, and electrolytes in am Continue with antibiotics BiPAP as necessary, for respiratory distress Monitor blood pressure adjust medication doses as needed Avoid hypotensive episodes May use Dilaudid 0.5 mg IV every 6 hours as needed for severe pain Monitor blood sugars Strict intake, output, and daily weight should be monitored Please renally adjust medications Avoid nephrotoxic and nonsteroidal drugs Avoid contrast if possible Will continue to monitor renal function, anemia, electrolytes Treatment plan discussed with patient Questions were answered We have discussed with the other team physicians in detail about the care plan We will continue to monitor the patient closely ATTESTATION BY PHYSICIAN I have seen and examined the patient. I reviewed the documentation, medical deci corina making, and treatment plan as noted by the mid-level provider above. I agree with the findings and plan of care. CIELO PORTILLO MD, ELIZABETH FNP Sep 09, 2025 14:00
--- NOTE | 2025-09-09 14:00 | NUR ---
ILEOSTOMY CHANGE ILEOSTOMY BAG POPPED PER PATIENT. DRAINAGE FROM BOTH SIDES. PATIENT WAS TAKEN TO SHOWER. STOMA CARE PROVIDED. NEW ILEOSTOMY BAG APPLIED.
[2025-09-09 16:00] VITALS: BP 128/76; PULSE 93; RESP 18; TEMP 97.7
--- NOTE | 2025-09-09 17:00 | NUR ---
PHYSICIAN ROUNDING [employer] ADDI [facility]UMMON[facility] ON UNIT. PER [employer] MA[employer]GER RECOMMENDATION RECONSULT WITH GI FOR ESOPHAGEAL VARICE BANDING. BLEEDING FROM ILEOSTOMY MAY BE DUE TO ESOPHAGEAL VARICES.
--- NOTE | 2025-09-09 18:37 | PN ---
GENERAL SURGERY PROGRESS NOTE Date/Time Patient Seen: [09/09/2025 1630 ] Interval History: This 55-year-old female seen in her room resting comfortably CT scan done yesterday shows unchanged perisplenic fluid collection Left upper quadrant percutaneous drain with minimal output Patient is still continues to have dark-bloody output from ostomy Stool in ostomy is now more paste like rather than watery Ostomy bag with a better seal after abdominal binder added Hemoglobin remained stable today 9.2 Anticoagulation for DVT management has been changed to Eliquis No other acute events reported at this time Patient tolerating soft diet Physical exam General: Awake alert and oriented Heart: Regular rate and rhythm} Lungs: Clear to auscultation no distress Abdomen: Soft, nontender, nondistended ostomy productive with healthy stoma, left upper quadrant percutaneous drain in place Assessment and Plan: Dr. Gann recommends for GI to do EGD for banding of esophageal varices that could be contributing to patient's GI bleed since starting on anticoagulation for DVT No removal of left upper quadrant percutaneous drain for now Patient to continue with diet as tolerated Patient encouraged to ambulate Repeat labs in a.m. Continue with fiber t.i.d. No surgical intervention at this time Surgical team will continue to follow Dr. Gann to be updated in patient's status Surgical case has been discussed with my supervising physician in the above plan was formulated and agreed upon We appreciate the hospitalist team for us to participate in patient's care. Greater than 45 minutes of time spent patient, reviewing chart, working on documentation Current Medications Medications (Trade) Dose Ordered Sig/Gregory Route Start Time Stop Time Status Last Admin Dose Admin Apixaban (EliquIS) 5 mg BID PO 09/08/25 21:00 10/08/25 20:59 09/09/25 10:37 5 MG Apixaban (EliquIS) 10 mg BID PO 09/07/25 22:00 09/08/25 01:42 DC 09/07/25 22:06 10 MG Apixaban (EliquIS) 10 mg BID PO 09/08/25 09:30 09/08/25 10:13 DC Atorvastatin Calcium (LIPItor 10MG) 5 mg HS PO 09/05/25 21:00 10/05/25 20:59 09/08/25 21:35 5 MG Calcium Gluconate (Calcium Gluc 1gm Vial) 1 gm ONCE IV 08/29/25 09:30 08/29/25 09:23 DC Dextrose/Sodium Chloride 1,000 ml @ 0 mls/hr AD IV 08/29/25 12:30 08/29/25 16:05 DC Duloxetine HCl (CymbALTA 30 mg CAP) 30 mg BID PO 09/03/25 21:00 09/09/25 11:10 DC 09/09/25 10:37 30 MG Enoxaparin Sodium (Lovenox (Pharmacy To Dose)) 1 unit Q12H SQ 09/06/25 13:30 09/06/25 13:21 DC Enoxaparin Sodium (Lovenox 60mg) 60 mg Q12H SQ 09/06/25 13:30 09/07/25 15:03 DC 09/07/25 14:29 60 MG Folic Acid (FOLic ACID 1 MG TABLET) 1 mg DAILY PO 09/08/25 09:00 10/08/25 08:59 09/09/25 10:37 1 MG Home Med (Home Medication) (Medroxyprogesterone Acetate (Provera) 1 TAB) DAILY PO 09/06/25 09:00 10/06/25 08:59 Insulin Human Regular (humuLIN R 100 UNIT/ML 3ML) 5 unit ONCE IV 08/29/25 09:30 08/29/25 09:25 DC Insulin Human Regular (humuLIN R 100 UNIT/ML 3ML) INSULIN SLIDING SCAL... ACHS SQ 08/29/25 11:30 09/28/25 11:29 09/09/25 17:02 5 UNIT Insulin Human Regular 100 unit/ Sodium Chloride 101 ml @ 0 mls/hr PROTOCOL IV 08/29/25 12:30 08/29/25 16:05 DC Lactated Ringer's 1,000 ml @ 100 mls/hr Q10H IV 09/06/25 00:00 09/06/25 18:44 DC 09/06/25 08:35 100 MLS/HR Lactulose (Constulose 20gm/ 30ml Udcup) 20 gm BID PO 09/05/25 21:00 10/01/25 13:59 09/07/25 20:59 20 GM Lactulose (Constulose 20gm/ 30ml Udcup) 20 gm TID PO 09/01/25 14:00 09/05/25 10:44 DC 11/2/25 08:06 20 GM Magnesium Sulfate 50 ml @ 0 mls/hr PROTOCOL IV 08/29/25 12:30 08/29/25 16:05 DC Magnesium Sulfate 50 ml @ 0 mls/hr PROTOCOL IV 08/30/25 10:00 09/29/25 09:59 09/08/25 04:26 25 MLS/HR Magnesium Sulfate 50 ml @ 0 mls/hr PROTOCOL IV 09/02/25 13:30 09/02/25 13:04 DC Magnesium Sulfate 50 ml @ 0 mls/hr PROTOCOL IV 09/03/25 08:00 09/03/25 07:43 DC Meropenem (Merrem 500mg) 500 mg Q24H IVPB 08/29/25 10:00 08/31/25 09:59 DC 08/30/25 09:46 500 MG Meropenem (Merrem 500mg) 500 mg Q24H IVPB 08/31/25 23:30 09/10/25 23:29 09/08/25 23:05 500 MG Midodrine (PROAMatine 5 MG TABLET) 5 mg TID PO 09/08/25 21:00 10/08/25 20:59 09/09/25 15:24 5 MG Midodrine (PROAMatine 5 MG TABLET) 10 mg BID PO 09/01/25 09:00 08/31/25 18:36 DC Midodrine (PROAMatine 5 MG TABLET) 10 mg TID PO 09/01/25 09:00 09/08/25 17:20 DC 09/08/25 16:16 10 MG Mirtazapine (REMeron 15 MG TAB) 7.5 mg HS PO 09/09/25 21:00 10/09/25 20:59 Norepinephrine Bitartrate 32 mg/ Sodium Chloride 250 ml @ 0 mls/hr Q0M STAT IV 08/29/25 21:01 08/29/25 21:07 DC 08/29/25 21:13 0 MLS/HR Octreotide Acetate 1250 mcg/ Sodium Chloride 250 ml @ 0 mls/hr PROTOCOL IV 08/29/25 08:30 09/01/25 10:32 DC 08/31/25 10:18 5 MLS/HR Pantoprazole Sodium (PROTonix 40MG INJ) 40 mg BID IVP 09/01/25 21:00 09/03/25 14:32 DC 09/03/25 09:16 40 MG Pantoprazole Sodium (PROTonix 40MG INJ) 40 mg BID IVP 09/06/25 09:00 10/06/25 08:59 09/09/25 10:37 40 MG Pantoprazole Sodium (PROTonix 40MG TAB) 40 mg DAILY PO 09/04/25 09:00 09/06/25 00:03 DC 09/05/25 08:06 40 MG Pantoprazole Sodium 80 mg/ Sodium Chloride 100 ml @ 10 mls/hr Q10H IV 08/29/25 08:30 09/01/25 10:32 DC 09/01/25 05:50 10 MLS/HR Pharmacy Profile Note (Pharmacy Communication) 1 each ONCE MISC 08/29/25 09:30 08/29/25 09:35 DC Pharmacy Profile Note (Pharmacy Communication) 1 each ONCE MISC 08/31/25 23:30 08/31/25 23:17 DC Psyllium Hydrophilic Mucilloid (Metamucil) 1 tbs TID PO 09/04/25 14:00 10/04/25 13:59 09/09/25 15:23 1 TBS Sodium Bicarbonate 150 meq/Dextrose 1,150 ml @ 125 mls/hr Q9H12M IVP 08/29/25 10:00 08/30/25 10:12 DC 08/30/25 08:07 125 MLS/HR Sodium Bicarbonate (Sodium Bicarbonate) 1,300 mg TID PO 09/07/25 14:00 09/08/25 18:00 DC 09/08/25 16:15 1,300 MG Sodium Bicarbonate (Sodium Bicarbonate) 1,300 mg TID PO 09/09/25 09:00 09/10/25 12:00 09/09/25 15:24 1,300 MG Sodium Chloride 250 ml @ 0 mls/hr AD IV 08/29/25 17:30 09/28/25 17:29 Sodium Chloride 1,000 ml @ 0 mls/hr Q0M IV 08/29/25 16:00 08/29/25 16:03 DC Sodium Chloride 1,000 ml @ 0 mls/hr Q0M IV 08/29/25 16:00 09/01/25 08:01 DC 08/29/25 16:10 500 MLS/HR Sodium Chloride 1,000 ml @ 125 mls/hr Q8H IV 08/29/25 09:30 08/29/25 09:57 DC Sodium Chloride 1,000 ml @ 150 mls/hr Q6H40M IV 08/29/25 18:30 09/01/25 09:29 DC 08/31/25 16:16 150 MLS/HR Sodium Chloride 1,000 ml @ 200 mls/hr PROTOCOL IV 08/29/25 12:30 08/29/25 16:05 DC Sodium Chloride 1,000 ml @ 999 mls/hr Q1H1M IV 08/29/25 09:30 08/29/25 09:06 DC Thiamine HCl (Vitamin B-1) 200 mg Q12H IVP 08/29/25 09:30 09/02/25 09:30 DC 09/02/25 08:56 200 MG Vitamin B Complex (Vitamin B-12) 1,000 mcg DAILY PO 09/08/25 09:00 10/08/25 08:59 09/09/25 10:37 1,000 MCG Vital Signs (last 8hr) Date Time Temp Pulse Resp B/P (MAP) Pulse Ox O2 Delivery O2 Flow Rate FiO2 09/09/25 16:00 97.7 93 18 128/76 99 Room Air 09/09/25 11:54 98.1 91 18 161/107 97 Laboratory: [ ] Hematology Labs: Test 09/09/25 04:37 Range/Units White Blood Count 3.0 L 4.8-10.8 K/uL Red Blood Count 2.95 L 4.00-5.50 MIL/uL Hemoglobin 9.2 L 12.0-16.0 g/dL Hematocrit 28.1 L 36-48 % Mean Corpuscular Volume 95.3 79-99 fL Mean Corpuscular Hemoglobin 31.2 27.0-33.0 pg Mean Corpuscular Hemoglobin Concent 32.7 32.0-36.0 g/dL Red Cell Distribution Width 18.2 H 11.0-15.5 % Platelet Count 139 130-400 K/uL Mean Platelet Volume 9.9 7.5-10.5 fL Immature Granulocyte % (Auto) 0.7 0-1 % Neutrophils (%) (Auto) 49.8 40.0-77.0 % Lymphocytes (%) (Auto) 34.9 21.0-51.0 % Monocytes (%) (Auto) 9.5 3.0-13.0 % Eosinophils (%) (Auto) 4.4 0.0-8.0 % Basophils (%) (Auto) 0.7 0.0-5.0 % Neutrophils # (Auto) 1.5 L 1.8-7.7 K/uL Lymphocytes # (Auto) 1.0 1.0-4.8 K/uL Monocytes # (Auto) 0.3 0.1-1.0 K/uL Eosinophils # (Auto) 0.13 0.00-0.70 K/uL Basophils # (Auto) 0.02 0.00-0.20 K/uL Absolute Immature Granulocyte (auto 0.02 0-1 K/uL Segmented Neutrophils % 61 40-70 % Lymphocytes % (Manual) 26 22-44 % Monocytes % (Manual) 6 2-9 % Eosinophils % (Manual) 7 H 1-6 % Nucleated Red Blood Cells 0.0 0.0-0.19 % Differential Comment MANUAL DIFFERENTIAL White Cell Morphology Comment See comments Platelet Morphology Comment ADEQUATE Red Blood Cell Morphology ANISO 1+ Chemistry Labs: Test 09/09/25 15:27 09/09/25 04:37 09/08/25 01:50 Range/Units Whole Blood Glucose 252 #H 70-110 MG/DL Sodium Level 137 136-145 mmol/L Potassium Level 4.0 3.5-5.1 mmol/L Chloride Level 109 101-111 mmol/L Carbon Dioxide Level 19 L 21-32 mmol/L Blood Urea Nitrogen 13 7-18 mg/dL Creatinine 0.7 0.5-1.0 mg/dL Glomerular Filtration Rate Calc 101 >90 mL/min Random Glucose 84 70-105 mg/dL Total Calcium 8.3 L 8.5-10.1 mg/dL Magnesium Level 1.80 1.80-2.40 mg/dL Albumin 2.5 L 3.5-5.0 g/dL Diagnostics / Radiology: [place] [id number] [address] IMAGING REPORT Signed PATIENT: DALLAS BUCHANAN MR#: [id number] : 1970 SEX: F AGE: 55 LOCATION: 3AH ORDER 2300 STATUS: ADM IN REPORT#: [id number] SERVICE 0600 REASON: EVALUATE LUQ PIGRTAIL FOR POSSIBLE REMOVAL ORDERING PHYSICIAN: FE BRODY MD PROCEDURE: ABDO WO - CT ABDOMEN W/O CONTRAST EXAM: CT ABDOMEN WITHOUT INTRAVENOUS CONTRAST Technique: Multislice helical computed tomography from the diaphragms through the inguinal region with thin-section axial images and coronal/sagittal reformations; dose reduction applied per ALARA. CTDIvol 6.5 mGy; DLP 204.50 mGy???cm. Contrast: No intravenous contrast administered. Clinical Information: Evaluate left upper-quadrant pigtail catheter for possible removal. Comparison: CT abdomen without contrast 09/06 00:31 EST Findings: Lung bases: Residual trace left pleural effusion with adjacent atelectasis; previously described calcified right lower-lobe pulmonary nodule is not visualized on this limited abdominal coverage. Liver: Nodular hepatic contour consistent with cirrhosis; no focal hepatic lesion identified on this noncontrast study. Gallbladder and biliary tree: Multiple punctate calcifications along the gallbladder wall; no biliary ductal dilatation. Pancreas and spleen: Stable perisplenic fluid collection with an indwelling drainage catheter and adjacent mild fat stranding; pancreatic contour and attenuation are unremarkable. Adrenal glands: Unremarkable bilaterally. Kidneys and ureters: Normal size and morphology; no hydronephrosis or nephrolithiasis. Stomach and bowel: Stomach distended with food residue; right lumbar ileostomy with stable postsurgical bowel changes; no bowel obstruction identified. Peritoneum and mesentery: Stable mild mesenteric edema; interval resolution of the previously noted minimal free fluid along the greater curvature of the stomach; no new free fluid or free intraperitoneal air. Lymph nodes: No pathologic abdominopelvic lymphadenopathy. Vasculature: No abdominal aortic aneurysm. Abdominal wall/soft tissues: No focal collection aside from the described perisplenic drain. Osseous structures: Multilevel mild spondylosis; no acute osseous abnormality. Impression: * Stable perisplenic fluid collection with an indwelling drainage catheter and mild adjacent fat stranding???correlate with drain output, clinical status, and inflammatory markers to determine readiness for catheter removal; interval imaging or catheter study may be helpful if uncertainty persists. * Cirrhotic liver morphology. Recommend clinical and laboratory correlation and hepatology follow-up if not already established. * Gallbladder wall calcifications (punctate pattern) without biliary dilatation???correlate clinically; consider surgical consultation if porcelain gallbladder is suspected based on pattern and extent of calcification. * Residual trace left pleural effusion with adjacent atelectasis; stomach distention with food residue; right lumbar ileostomy with expected postsurgical changes; no new abdominopelvic free fluid or free air. * Compared with 09/06/2025 00:31 EST, the perisplenic collection is unchanged with the drain remaining in place, the previously described minimal perigastric free fluid has resolved, and the prior calcified right lower-lobe nodule is not visualized on this limited abdominal scan; otherwise, no significant interval change. /[place] DICTATED BY: EDWIGE LEDESMA MD DATE: 09/09/251409 ELECTRONICALLY SIGNED BY: EDWIGE LEDESMA MD DATE: 09/09/251409 ATTESTATION BY PHYSICIAN I have seen and examined the patient. I reviewed the documentation, medical decision making, and treatment plan as noted by the mid-level provider above. I agree with the findings and plan of care. MD LEANA ISRAEL LETICIA A [facility] Sep 09, 2025 18:37
--- NOTE | 2025-09-09 19:15 | NUR ---
ILEOSTOMY CHANGE LEAKING FROM BOTH SIDES OF ILEOSTOMY. ILEOSTOMY BAG CHANGED. NEW APPLIANCE APPLIED USING PATIENT'S SUPPLY. ABDOMINAL BINDER PLACED.
[2025-09-09 20:00] VITALS: BP 124/69; PULSE 83; RESP 20; TEMP 98.2; O2SAT 98
[2025-09-10] VITALS: BP 123/71; PULSE 89; RESP 20; TEMP 98.2
[2025-09-10 04:00] VITALS: BP 124/76; PULSE 87; RESP 20; TEMP 97.9
[2025-09-10 05:09] LABS: IMMATURE GRANULOCYTE ABSOLUTE 0.02 K/uL (0-1); NUCLEATED RED BLOOD CELLS 0.0 % (0.0-0.19); PLATELET COUNT (AUTO) 169 K/uL (130-400); RED BLOOD CELL COUNT(AUTO) 2.97 MIL/uL (4.00-5.50); RED CELL DISTRIBUTION WIDTH 18.0 % (11.0-15.5); WHITE BLOOD COUNT (AUTO) 3.6 K/uL (4.8-10.8)
[2025-09-10 05:32] LABS: ASPARTATE AMINOTRANSFERASE 50.0 U/L (10-37); CREATININE 0.9 mg/dL (0.5-1.0); GLOMERULAR FILTR. RATE CALC 75.0 mL/min (>90); GLUCOSE,RANDOM 88.0 mg/dL (70-105); SODIUM SERUM 136.0 mmol/L (136-145); TOTAL PROTEIN, SERUM 6.1 g/dL (6.0-8.3); UREA NITROGEN, BLOOD 12.0 mg/dL (7-18)
[2025-09-10 08:00] VITALS: BP 124/69; PULSE 79; RESP 18; TEMP 98; O2SAT 99
--- NOTE | 2025-09-10 09:49 | NUR ---
MORNING MIDODRINE HELD TO PREVENT HYPOTENSIVE EPISODE, VITALS CURRENTLY STABLE BP 124/69.
--- NOTE | 2025-09-10 11:28 | PN ---
[facility] PROGRESS NOTE Date of Service: Sep 10, 2025 Time of Service: 11:28 SUBJECTIVE: As per admission notes "50-year-old female with underlying history of type 2 diabetes mellitus, history of liver cirrhosis, prior history of esophageal varices requiring banding in May,, history of robotic sigmoid resection with takedown of colovesical fistula who was recently hospitalized in [facility] from 07/20/2025 - 08/25/2025 patient was found to have bilious peritonitis with 2 mm perforation of colonic anastomosis requiring diagnostic laparoscopy, abdominal washout and drain placement with creation of diverting loop ileostomy. Patient was hospitalized for about one month and subsequently required IR guided drain placement as well. She was just discharged from the hospital on 08/25/2025. Patient's daughter reports that patient was having nausea and vomiting with poor oral intake at home. She started to have coffee-ground emesis today and she also noticed some right streaks of blood with a coffee-ground emesis. Stool has also been dark in the ileostomy bag. Patient is having moderate intensity abdominal pain as well. She has not been taking any NSAIDs. Daughter reports that patient has been very weak since her discharge in very debilitated. Patient denies active chest pain. Denies active shortness of breath. On presentation to the hospital, patient was noted to be afebrile with T-max of 97.5 F, heart rate of 100, blood pressure of 127/91. [place] [address], hemoglobin of 16.4, platelet count of 276298. BMP was repeated twice, BMP showed sodium of 117, potassium 7.0, chloride of 88, CO2 of seven, BUN of 83, creatinine 5.0, blood glucose of 99, calcium 10.4. Blood gas showed pH of 7.28, bicarb of close to eight, CO2 of 18, lactic acid of three. Patient will be admitted to ICU. Patient is presenting with severe renal failure with hyperkalemia and severe metabolic acidosis. Patient also with concerns for upper GI bleeding with coffee-ground emesis. Patient remains critically ill consultation with Intensive Care, Nephrology, GI will be requested. We we will obtain a CT abdomen pelvis without contrast for further evaluation as well. Patient is critically ill. Plan of care was discussed with patient and daughter at bedside" 08/30/2025 Patient was seen and examined at bedside. Her blood pressure has been low, 88/54, heart rate 86. She is currently on Levophed 0.2 Mcg, octreotide, Protonix, sodium bicarbonate drip. She received 2nd hemodialysis session yesterday. As per Nephrology, she will continue to receive dialysis inpatient. Her high anion gap metabolic acidosis is improving with sodium 134, carbon dioxide 31, chloride 96. Her creatinine has trended down from 5-1.8. General surgery consult is on board and we will follow up with their recommendations. Additionally, in the light of history of liver cirrhosis with esophageal varices, her recent hematemesis will be evaluated with GI consult and possible endoscopy. We discussed this with the patient and her family members present besides. Patient is started on Merrem and blood culture, urine cultures show no growth so far. Her lactic acid has trended down from 3.1 to 2.1. 08/31/2025 Patient was seen and examined at bedside in room 214. She continues to be on Levophed 0.1 which is being weaned off. She is also on Sandostatin and Protonix drip. Patient complained of mild pain along the sides of her drain but denied any nausea or episode of vomiting since Saturday. Minimal drainage was noted. Sodium bicarb was discontinued as per Nephrology. Her lab markers have improved with sodium 141, chloride 104, bicarb 32, creatinine 1, BUN 16, ammonia 34. Her urine sodium was less than 20 consistent with prerenal CYNTHIA. We are pending blood and urine culture results. Her total output in the past24 hours has been optimal, 2069. She is on sodium chloride 150 mL/hour. We are following gastroenterology recommendations of possible upper endoscopy in the morning if patient condition remains stable. 09/01/2025 Patient was seen and examined at bedside. She is off vasopressor support and is hemodynamically stable. Her chest x-ray showed opacity in the left lower lobe and we will follow up with CT scan of chest. She is started on 2nd day of ppm today. She successfully underwent EGD which showed small, less than 5 mm, esophageal varices with scar in the lower 3rd of the esophagus. Patient was noted to have portal hypertensive gastropathy which was biopsied. Duodenum was normal during examination. Patient is receiving Merrem and her blood culture and urine cultures have shown no growth so far. Due to her elevated ammonia levels, she will be started on lactulose. We will proceed with caution with respect to normal saline as patient's BNP is elevated. 09/02/2025 The patient has been seen and examined earlier this morning during my rounding, case discussed with the RN, no acute events overnight, blood pressure 118/71, h eart rate of 56, afebrile, saturating normal on room air, CBC showing hemoglobin 8.5, hematocrit 36.8, WBC of 4.4, platelet count of 99, sodium 137, potassium 3.8, BUN of 18, creatinine 0.7, magnesium Lasix. Results of blood culture no growth after four days. Urine culture no growth. EGD reviewed, small less than 5 mm esophageal varices with scar in the lower 3rd of the esophagus. Patient with a bottle hypertensive gastropathy, status post biopsy, duodenum was normal during examination. Patient to be downgraded to the medical floor, continue banana bag, continue Protonix 40 mg IV b.i.d.. Plan for possible PEG tube placement. 09/03/2025 Patient was seen and examined at bedside. She has been advanced to GI soft bland diet which she is tolerating really well and having output in her ileostomy bag. As per surgeon, if she continues to tolerate diet, she may not require G-tube placement on discharge. Patient did not complain of any significant pain and seemed to be doing really well. Her cholecystostomy tube was removed but her splenic percutaneous tube is still in position and may require further IR intervention for repositioning due to persistent and mildly increased perisplenic fluid collection. She is receiving lactulose and her ammonia levels have gone down. Her acute renal failure continues to resolve and her vitals are also stable. No growth on urine and blood culture so far. We have shifted her from Protonix IV to p.o. as per GI recommendations. 09/04/2025 Patient was seen and examined at bedside in room 302. She has been tolerating GI soft bland diet, ileostomy output seems very high, liquid consistency and patient will be receiving fiber 3 times a day. Patient may require further IR intervention on Saturday for splenic drain reposition due to persistent and mildly increased perisplenic fluid collection. Vitals are stable, blood and urine culture shows no growth so far. 09/05/2025 Patient was seen and examined at bedside. She is tolerating GI soft bland diet, and her ileostomy output is high although liquid in consistency. We have decreased lactulose to b.i.d. from t.i.d. She continues on fiber 3 times a day as per surgery recommendations to bulk up the stool from the ileostomy in order to decrease the chances of further dehydration from high ileostomy output. Additionally, nodular swelling was appreciated in her right upper extremity which could be concerning for superficial venous thrombosis for which ultrasound Doppler of right upper extremity has been ordered. Patient is currently undergoing bladder training while being catheterized and we will proceed with Dueñas catheter removal as tolerated. 09/06/2025: Patient was seen and examined at bedside in room 302. She is tolerating GI soft bland diet and her ileostomy output has thicker consistency. Nurse reported that there was bright red blood in the ileostomy bag last night however this morning it was free from blood. Venous Doppler of the right upper extremity revealed deep vein thrombosis in right axillary vein and right cephalic vein, advice from Gastroenterology and Hematology was requested to start anticoagulation. Patient was started on Lovenox 1 mg/kg body weight as per Hematology recommendations. Patient will be continued on IV Protonix 40 mg b.i.d. 09/07/2025: Patient was seen and examined at bedside in room 302. Patient complained of generalized body pains however denied specific pain to the right arm or in abdomen. She is tolerating GI soft bland it and had to 25 mL of total output from ileostomy bag last night as per the primary nurse. During my evaluation in the morning there was no blood observed in the ileostomy bag however around 10:30 a.m. nurse reported blood in the ileostomy bag. Dr. Gonzalez recommended to continue Lovenox and bridge with apixaban 10 mg for 5 days and then transition to apixaban 5 mg for 3 months. Surgery recommended to continue current medical management and await management of DVT for potential discharge. However we will try to connect with them regarding removal of splenic drain or repositioning through IR Services. 09/08/2025: Patient was examined at bedside in room 302. Patient's family memb ers were present during the evaluation of helped us translate. Her ileostomy bag was clear. Patient attendants voiced that patient was more anxious about noticing blood in her ileostomy bag. Patient's hemoglobin and hematocrit have remained stable. Ileostomy bag has been replaced due to leakage. Patient and the family members were educated on proper care for ileostomy bag by the wound care team and was also reinforced that she needs to be on anticoagulation for venous thrombosis for preventing dislodging of clot to lungs and causing fatal pulmonary embolism. Risks and benefits were explained to the patient that patient will need anticoagulation and her hemoglobin will be monitored regularly. Was also encouraged to keep her food intake high and prevent dehydration. We will connect with surgical team for management of splenic catheter drain. 09/09/2025: Patient was examined at the bedside in room 302. Patient had no acute events over night but continues to have difficulty falling asleep and anxiety from the medical complexity. Her hemoglobin is stable 9.2 today. Patient has an abdominal binder in place with ostomy ring for better seal. Patient will undergo CT abdomen for evaluation of removal of splenic catheter drain today. We discontinued her Duloxetine and started 7.5 mg of Mirtazapine at bedtime. 09/10/2025: Patient was examined at the bedside in room 302. Patient had no acut events overnight and reports she had a restful sleep last night. There was no reported leakage of blood into the ileostomy bag. Patient still has the ostomy ring and binder in place. Surgical team recommended considering variceal banding which could be the source of frequent bleeding into the ileostomy bag. They also recommended to keep the splenic catheter drain in place for continued perisplenic fluid. Nurse was notified to call GI team for further recommendations. We will continue to taper her midodrine in the subsequent days as she is maintaining good blood pressure. REVIEW OF SYSTEMS CONSTITUTIONAL: malaise, poor oral intake -resolving NEUROLOGICAL: Denies headache, motor weakness, sensory deficit, vertigo/spinning sensation, gait abnormalities, or tremors. ENT: No hearing loss, otalgia, otorrhea, rhinitis, rhinorrhea, hoarseness, or sore throat. CARDIOVASCULAR: Denies any exertional angina, dyspnea on exertion, orthopnea, paroxysmal nocturnal dyspnea, palpitations, life-threatening arrhythmias, claudication. PULMONARY: Denies any shortness of breath, cough, phlegm/sputum, hemoptysis, pleuritic chest pain. SLEEP: Denies morning headaches, daytime somnolence or napping. Denies difficulty falling asleep, staying asleep, waking from sleep. Denies knowledge of snoring. GASTROINTESTINAL: nausea, vomiting, abdominal pain, melena, coffee ground emesis - resolved GENITOURINARY: Urine output was very low - resolving PHYSICAL EXAM GENERAL APPEARANCE: The patient is awake, alert, and oriented, answering to all questions with very mild pain around her drains. NEUROLOGICAL: Cranial nerves II-XII grossly intact. Neurological examination is non focal with spontaneous movement of upper and lower extremities HEENT: Face is symmetric. Pupils are equal and reactive. Extraocular movements are intact. NECK: Supple. No JVD. No thyromegaly. No submental, submandibular, pre- /postauricular, occipital or supraclavicular lymphadenopathy. CHEST: Normal chest expansion. No Telemetry. LUNGS: Absence of any rales, rhonchi or any wheezing. CARDIOVASCULAR: Regular. S1 and S2 normal. No appreciable rubs, murmurs or gallops. ABDOMEN: no rebound noted, there is perisplenic abdominal drain noted with ileostomy bag, ostomy ring and abdominal binder. : Deferred. Currently catheterized. EXTREMITIES: Swelling in right upper extremity. Mild ecchymosis. Vital Signs (last 8hr) Date Time Temp Pulse Resp B/P (MAP) Pulse Ox O2 Delivery O2 Flow Rate FiO2 09/10/25 08:00 98.1 79 18 124/69 98 Room Air 09/10/25 08:00 99 Room Air* 0 21 09/10/25 04:00 97.9 87 20 124/76 98 Room Air LABS: Laboratory: Test 09/10/25 08:16 09/10/25 05:31 09/10/25 04:59 09/09/25 04:37 Range/Units Ammonia 34 H 11-32 umol/L Whole Blood Glucose 90 70-110 MG/DL White Blood Count 3.6 L 4.8-10.8 K/uL Red Blood Count 2.97 L 4.00-5.50 MIL/uL Hemoglobin 9.2 L 12.0-16.0 g/dL Hematocrit 28.3 L 36-48 % Mean Corpuscular Volume 95.3 79-99 fL Mean Corpuscular Hemoglobin 31.0 27.0-33.0 pg Mean Corpuscular Hemoglobin Concent 32.5 32.0-36.0 g/dL Red Cell Distribution Width 18.0 H 11.0-15.5 % Platelet Count 169 130-400 K/uL Mean Platelet Volume 9.6 7.5-10.5 fL Immature Granulocyte % (Auto) 0.6 0-1 % Neutrophils (%) (Auto) 55.7 40.0-77.0 % Lymphocytes (%) (Auto) 28.2 21.0-51.0 % Monocytes (%) (Auto) 10.8 3.0-13.0 % Eosinophils (%) (Auto) 4.1 0.0-8.0 % Basophils (%) (Auto) 0.6 0.0-5.0 % Neutrophils # (Auto) 2.0 1.8-7.7 K/uL Lymphocytes # (Auto) 1.0 1.0-4.8 K/uL Monocytes # (Auto) 0.4 0.1-1.0 K/uL Eosinophils # (Auto) 0.15 0.00-0.70 K/uL Basophils # (Auto) 0.02 0.00-0.20 K/uL Absolute Immature Granulocyte (auto 0.02 0-1 K/uL Nucleated Red Blood Cells 0.0 0.0-0.19 % Sodium Level 136 136-145 mmol/L Potassium Level 3.9 3.5-5.1 mmol/L Chloride Level 108 101-111 mmol/L Carbon Dioxide Level 19 L 21-32 mmol/L Blood Urea Nitrogen 12 7-18 mg/dL Creatinine 0.9 0.5-1.0 mg/dL Glomerular Filtration Rate Calc 75 >90 mL/min Random Glucose 88 70-105 mg/dL Total Calcium 8.1 L 8.5-10.1 mg/dL Total Bilirubin 0.5 0.2-1.0 mg/dL Aspartate Amino Transf (AST/SGOT) 50 H 10-37 U/L Alanine Aminotransferase (ALT/SGPT) 25 12-78 U/L Alkaline Phosphatase 116 50-136 U/L Total Protein 6.1 6.0-8.3 g/dL Albumin 2.3 L 3.5-5.0 g/dL Segmented Neutrophils % 61 40-70 % Lymphocytes % (Manual) 26 22-44 % Monocytes % (Manual) 6 2-9 % Eosinophils % (Manual) 7 H 1-6 % Differential Comment MANUAL DIFFERENTIAL White Cell Morphology Comment See comments Platelet Morphology Comment ADEQUATE Red Blood Cell Morphology ANISO 1+ Magnesium Level 1.80 1.80-2.40 mg/dL Current Medications Medications (Trade) Dose Ordered Sig/Gregory Route PRN Reason Start Time Stop Time Status Last Admin Dose Admin Acetaminophen (TYLenol 325MG TAB) 650 mg Q6H PRN PO MILD PAIN (1-3) 08/29/25 10:00 09/28/25 09:59 Acetaminophen/ Hydrocodone Bitart (NORco 5/325MG) 2 tab Q4H PRN PO SEVERE PAIN (7-10) 09/08/25 09:30 09/13/25 09:29 09/10/25 02:41 2 TAB Albuterol (DUOneb) 1 udvial Q6H PRN IH SHORTNESS OF BREATH 08/29/25 10:00 09/28/25 09:59 Apixaban (EliquIS) 5 mg BID PO 09/08/25 21:00 10/08/25 20:59 09/10/25 07:58 5 MG Apixaban (EliquIS) 10 mg BID PO 09/07/25 22:00 09/08/25 01:42 DC 09/07/25 22:06 10 MG Apixaban (EliquIS) 10 mg BID PO 09/08/25 09:30 09/08/25 10:13 DC Atorvastatin Calcium (LIPItor 10MG) 5 mg HS PO 09/05/25 21:00 10/05/25 20:59 09/09/25 20:56 5 MG Calcium Gluconate (Calcium Gluc 1gm Vial) 1 gm ONCE IV 08/29/25 09:30 08/29/25 09:23 DC Cyclobenzaprine HCl (Cyclobenzaprine HCl) 5 mg TID PRN PO muscle spasms 09/05/25 11:00 10/05/25 10:59 Dextrose (D50w) 50 ml AD PRN IV HYPOGLYCEMIA PROTOCOL 08/29/25 10:00 09/28/25 09:59 Dextrose/Sodium Chloride 1,000 ml @ 0 mls/hr AD IV 08/29/25 12:30 08/29/25 16:05 DC Duloxetine HCl (CymbALTA 30 mg CAP) 30 mg BID PO 09/03/25 21:00 09/09/25 11:10 DC 09/09/25 10:37 30 MG Enoxaparin Sodium (Lovenox (Pharmacy To Dose)) 1 unit Q12H SQ 09/06/25 13:30 09/06/25 13:21 DC Enoxaparin Sodium (Lovenox 60mg) 60 mg Q12H SQ 09/06/25 13:30 09/07/25 15:03 DC 09/07/25 14:29 60 MG Folic Acid (FOLic ACID 1 MG TABLET) 1 mg DAILY PO 09/08/25 09:00 10/08/25 08:59 09/10/25 07:58 1 MG Glucagon (Glucagon 1mg Kit) 1 mg AD PRN IM HYPOGLYCEMIA PROTOCOL 08/29/25 10:00 09/28/25 09:59 Home Med (Home Medication) (Medroxyprogesterone Acetate (Provera) 1 TAB) DAILY PO 09/06/25 09:00 10/06/25 08:59 Insulin Human Regular (humuLIN R 100 UNIT/ML 3ML) 5 unit ONCE IV 08/29/25 09:30 08/29/25 09:25 DC Insulin Human Regular (humuLIN R 100 UNIT/ML 3ML) INSULIN SLIDING SCAL... ACHS SQ 08/29/25 11:30 09/28/25 11:29 09/09/25 17:02 5 UNIT Insulin Human Regular 100 unit/ Sodium Chloride 101 ml @ 0 mls/hr PROTOCOL IV 08/29/25 12:30 08/29/25 16:05 DC Lactated Ringer's 1,000 ml @ 100 mls/hr Q10H IV 09/06/25 00:00 09/06/25 18:44 DC 09/06/25 08:35 100 MLS/HR Lactulose (Constulose 20gm/ 30ml Udcup) 20 gm BID PO 09/05/25 21:00 10/01/25 13:59 09/10/25 07:59 20 GM Lactulose (Constulose 20gm/ 30ml Udcup) 20 gm TID PO 09/01/25 14:00 09/05/25 10:44 DC 09/05/25 08:06 20 GM Magnesium Sulfate 50 ml @ 0 mls/hr PROTOCOL IV 08/29/25 12:30 08/29/25 16:05 DC Magnesium Sulfate 50 ml @ 0 mls/hr PROTOCOL IV 08/30/25 10:00 09/29/25 09:59 09/08/25 04:26 25 MLS/HR Magnesium Sulfate 50 ml @ 0 mls/hr PROTOCOL IV 09/02/25 13:30 09/02/25 13:04 DC Magnesium Sulfate 50 ml @ 0 mls/hr PROTOCOL IV 09/03/25 08:00 09/03/25 07:43 DC Meropenem (Merrem 500mg) 500 mg Q24H IVPB 08/29/25 10:00 08/31/25 09:59 DC 08/30/25 09:46 500 MG Meropenem (Merrem 500mg) 500 mg Q24H IVPB 08/31/25 23:30 09/10/25 02:29 DC 09/09/25 23:40 500 MG Midodrine (PROAMatine 5 MG TABLET) 5 mg BID PO 09/10/25 09:00 10/08/25 20:59 Midodrine (PROAMatine 5 MG TABLET) 5 mg TID PO 09/08/25 21:00 09/10/25 08:05 DC 09/09/25 15:24 5 MG Midodrine (PROAMatine 5 MG TABLET) 10 mg BID PO 09/01/25 09:00 08/31/25 18:36 DC Midodrine (PROAMatine 5 MG TABLET) 10 mg TID PO 09/01/25 09:00 09/08/25 17:20 DC 09/08/25 16:16 10 MG Mirtazapine (REMeron 15 MG TAB) 7.5 mg HS PO 09/09/25 21:00 10/09/25 20:59 09/09/25 20:57 7.5 MG Morphine Sulfate (morPHINE 2MG SYG) 0.5 mg Q4H PRN IVP SEVERE PAIN (7-10) 09/07/25 13:30 09/08/25 09:11 DC 09/08/25 04:27 0.5 MG Morphine Sulfate (morPHINE 2MG SYG) 0.5 mg Q4H PRN IVP SEVERE PAIN (7-10) 09/08/25 18:00 09/09/25 11:10 DC Morphine Sulfate (morPHINE 2MG SYG) 1 mg Q4H PRN IVP SEVERE PAIN (7-10) 09/05/25 13:30 09/07/25 11:35 DC 09/06/25 23:40 1 MG Morphine Sulfate (morPHINE 2MG SYG) 2 mg Q4H PRN IVP SEVERE PAIN (7-10) 09/01/25 05:30 09/05/25 13:19 DC 09/05/25 04:28 2 MG Norepinephrine Bitartrate 32 mg/ Sodium Chloride 250 ml @ 0 mls/hr Q0M STAT IV 08/29/25 21:01 08/29/25 21:07 DC 08/29/25 21:13 0 MLS/HR Octreotide Acetate 1250 mcg/ Sodium Chloride 250 ml @ 0 mls/hr PROTOCOL IV 08/29/25 08:30 09/01/25 10:32 DC 08/31/25 10:18 5 MLS/HR Ondansetron HCl (zoFRAN 4MG INJ) 4 mg Q6H PRN IVP NAUSEA/VOMITING 08/29/25 09:30 09/28/25 09:29 09/09/25 10:42 4 MG Pantoprazole Sodium (PROTonix 40MG INJ) 40 mg BID IVP 09/01/25 21:00 09/03/25 14:32 DC 09/03/25 09:16 40 MG Pantoprazole Sodium (PROTonix 40MG INJ) 40 mg BID IVP 09/06/25 09:00 10/06/25 08:59 09/10/25 07:59 40 MG Pantoprazole Sodium (PROTonix 40MG TAB) 40 mg DAILY PO 09/04/25 09:00 09/06/25 00:03 DC 09/05/25 08:06 40 MG Pantoprazole Sodium 80 mg/ Sodium Chloride 100 ml @ 10 mls/hr Q10H IV 08/29/25 08:30 09/01/25 10:32 DC 09/01/25 05:50 10 MLS/HR Pharmacy Profile Note (Pharmacy Communication) 1 each ONCE MISC 08/29/25 09:30 08/29/25 09:35 DC Pharmacy Profile Note (Pharmacy Communication) 1 each ONCE MISC 08/31/25 23:30 08/31/25 23:17 DC Potassium Chloride 100 ml @ 50 mls/hr AD PRN IV POTASSIUM PROTOCOL 08/29/25 12:30 09/28/25 12:29 09/02/25 06:26 50 MLS/HR Psyllium Hydrophilic Mucilloid (Metamucil) 1 tbs TID PO 09/04/25 14:00 10/04/25 13:59 09/10/25 10:31 1 TBS Sodium Bicarbonate 150 meq/Dextrose 1,150 ml @ 125 mls/hr Q9H12M IVP 08/29/25 10:00 08/30/25 10:12 DC 08/30/25 08:07 125 MLS/HR Sodium Bicarbonate (Sodium Bicarbonate) 1,300 mg TID PO 09/07/25 14:00 09/08/25 18:00 DC 09/08/25 16:15 1,300 MG Sodium Bicarbonate (Sodium Bicarbonate) 1,300 mg TID PO 09/09/25 09:00 09/10/25 12:00 09/10/25 10:31 1,300 MG Sodium Chloride 250 ml @ 0 mls/hr AD IV 08/29/25 17:30 09/28/25 17:29 Sodium Chloride 1,000 ml @ 0 mls/hr Q0M IV 08/29/25 16:00 08/29/25 16:03 DC Sodium Chloride 1,000 ml @ 0 mls/hr Q0M IV 08/29/25 16:00 09/01/25 08:01 DC 08/29/25 16:10 500 MLS/HR Sodium Chloride 1,000 ml @ 125 mls/hr Q8H IV 08/29/25 09:30 08/29/25 09:57 DC Sodium Chloride 1,000 ml @ 150 mls/hr Q6H40M IV 08/29/25 18:30 09/01/25 09:29 DC 08/31/25 16:16 150 MLS/HR Sodium Chloride 1,000 ml @ 200 mls/hr PROTOCOL IV 08/29/25 12:30 08/29/25 16:05 DC Sodium Chloride 1,000 ml @ 999 mls/hr Q1H1M IV 08/29/25 09:30 08/29/25 09:06 DC Thiamine HCl (Vitamin B-1) 200 mg Q12H IVP 08/29/25 09:30 09/02/25 09:30 DC 09/02/25 08:56 200 MG Vitamin B Complex (Vitamin B-12) 1,000 mcg DAILY PO 09/08/25 09:00 10/08/25 08:59 09/10/25 07:58 1,000 MCG DIAGNOSTICS / RADIOLOGY: [ ] PATIENT: KARENLang JULIENDALLAS MR#: [id number] : 1970 SEX: F AGE: 55 LOCATION: 3AH ORDER 230 STATUS: ADM IN REPORT#: [id number] SERVICE 0600 REASON: EVALUATE LUQ PIGRTAIL FOR POSSIBLE REMOVAL ORDERING PHYSICIAN: FE BRODY MD PROCEDURE: ABDO WO - CT ABDOMEN W/O CONTRAST EXAM: CT ABDOMEN WITHOUT INTRAVENOUS CONTRAST Technique: Multislice helical computed tomography from the diaphragms through the inguinal region with thin-section axial images and coronal/sagittal reformations; dose reduction applied per ALARA. CTDIvol 6.5 mGy; DLP 204.50 mGy???cm. Contrast: No intravenous contrast administered. Clinical Information: Evaluate left upper-quadrant pigtail catheter for possible removal. Comparison: CT abdomen without contrast 09/06 00:31 EST Findings: Lung bases: Residual trace left pleural effusion with adjacent atelectasis; previously described calcified right lower-lobe pulmonary nodule is not visualized on this limited abdominal coverage. Liver: Nodular hepatic contour consistent with cirrhosis; no focal hepatic lesion identified on this noncontrast study. Gallbladder and biliary tree: Multiple punctate calcifications along the gallbladder wall; no biliary ductal dilatation. Pancreas and spleen: Stable perisplenic fluid collection with an indwelling drainage catheter and adjacent mild fat stranding; pancreatic contour and attenuation are unremarkable. Adrenal glands: Unremarkable bilaterally. Kidneys and ureters: Normal size and morphology; no hydronephrosis or nephrolithiasis. Stomach and bowel: Stomach distended with food residue; right lumbar ileostomy with stable postsurgical bowel changes; no bowel obstruction identified. Peritoneum and mesentery: Stable mild mesenteric edema; interval resolution of the previously noted minimal free fluid along the greater curvature of the stomach; no new free fluid or free intraperitoneal air. Lymph nodes: No pathologic abdominopelvic lymphadenopathy. Vasculature: No abdominal aortic aneurysm. Abdominal wall/soft tissues: No focal collection aside from the described perisplenic drain. Osseous structures: Multilevel mild spondylosis; no acute osseous abnormality. Impression: * Stable perisplenic fluid collection with an indwelling drainage catheter and mild adjacent fat stranding???correlate with drain output, clinical status, and inflammatory markers to determine readiness for catheter removal; interval imaging or catheter study may be helpful if uncertainty persists. * Cirrhotic liver morphology. Recommend clinical and laboratory correlation and hepatology follow-up if not already established. * Gallbladder wall calcifications (punctate pattern) without biliary dilatation???correlate clinically; consider surgical consultation if porcelain gallbladder is suspected based on pattern and extent of calcification. * Residual trace left pleural effusion with adjacent atelectasis; stomach distention with food residue; right lumbar ileostomy with expected postsurgical changes; no new abdominopelvic free fluid or free air. * Compared with 09/06/2025 00:31 EST, the perisplenic collection is unchanged with the drain remaining in place, the previously described minimal perigastric free fluid has resolved, and the prior calcified right lower-lobe nodule is not visualized on this limited abdominal scan; otherwise, no significant interval change. /[place] DICTATED BY: EDWIGE LEDESMA MD DATE: 09/09/25 141 ELECTRONICALLY SIGNED BY: EDWIGE LEDESMA MD DATE: 09/09/25 1410 ASSESSMENT: Acute upper GI bleeding- Hematemesis, dark output from ileostomy bag, POA, Improving Acute DVT of right axillary vein and right cephalic vein High output from ileostomy bag, not POA Hemorrhagic shock versus hypovolemic shock, POA, Resolved Normocytic normochromic anemia, POA Non anion gap metabolic acidosis Generalized anxiety and Insomnia, POA Hypovolemic hypochloremic hyponatremia, POA, Resolved Severe hyperkalemia, POA, Resolved Hypokalemia, Not POA, resolved Hypophosphatemia, Not POA High anion gap metabolic acidosis, POA, Resolved Hyperammonemia, POA, Improving Lactic acidosis, POA, Resolved Hyperphosphatemia, POA, Resolved Acute renal failure - Prerenal Acute Kidney Injury, POA, resolved Starvation Ketoacidosis, POA Rule out occult sepsis, POA Recent extended hospitalization in [facility], 07/20/2025- 08/25/2025 for sepsis, acute abdomen, POA Severe Dehydration, POA, Improving History of esophageal varices, POA Acute Decompensated liver cirrhosis, POA Hx of acute cholecystitis, s/p cholecystostomy tube placement on 08/02/2025. Perisplenic abscess, s/p CT-guided drainage placement on 08/09/2025. 2.7 x 2.2 x 5.1 cm infrasplenic collection History of gastritis, POA Hx of Generalized peritonitis with ESBL E coli infection, POA Moderate Protein calorie malnutrition POA History of bilious peritonitis with small colonic anastomosis perforation s/p di agnostic laparoscopy, abdominal washout, ileostomy creation by Dr. Gann, 07/21/2025 Hx of DM II, POA Recent colovesical fistula repair with sigmoid colon resection and anastomosis on PLAN: High output from ileostomy * Continue fiber 3 times a day. Secretions have thickened. * Monitor for any signs of dehydration including vitals and BMP. * Lactulose decreased to b.i.d. from t.i.d.. * Ostomy ring and abdominal binder in place for better seal. * Monitor input and output including ileostomy bag. Acute DVT of right axillary vein and right cephalic vein * Patient developed nodular, tender swelling along the venous distribution in right upper extremity * Venous doppler on 09/05/25 revealed acute DVT of right axillary vein and right cephalic vein * Hematology recommended to bridge Lovenox 60 mg Q12 with Apixaban 10 mg BID for 5 days followed by Apixaban 5 mg bid for 3 months * We changed the apixaban to 5 mg b.i.d. * Gastroenterology cleared patient for anticoagulation Non-Anion gap metabolic acidosis * Patient's bicarb is 19, sodium 137, chloride 109 and albumin 2.5, albumin corrected anion gap 11.8 * Patient to be continued on 1300 mg of sodium bicarbonate t.i.d. * We will monitor labs tomorrow a.m. Acute upper GI bleeding- Hematemesis, dark output from ileostomy bag * EGD was done which showed less than 5 mm esophageal varices with scar in the lower 3rd of the esophagus, hypertensive gastropathy, status post biopsy, duodenum was normal during examination. * Patient received Sandostatin and Protonix drip on presentation which were subsequently stopped . * Patient resumed on IV Protonix 40 mg b.i.d. * Diet advanced to regular diet * Monitor for bleeding * Ileostomy output 225 ml in last 24 hours and has thicker consistency, continue fiber 3 times daily. Normocytic normochromic anemia, iron deficiency * Patient's hemoglobin stable at 9.2 * Anemia of chronic disease versus iron deficiency versus blood loss. * Iron 31, TIBC 155, % sat 20 * Keep hemoglobin above 7 Acute renal failure, Prerenal Acute Kidney Injury, Dehydration, resolved * On Presentation, patient's creatinine was 5, BUN 80. * FENa <0.2, Stone <20 - Urine microscopy showed Hyaline and granular casts * Patient was started on NaCl 150mls/hr which was stopped. * Bicarb drip was discontinued as per nephrology. * patient is successfully weaned off Levophed * Patient received emergent hemodialysis session for elevated renal parameters as well as electrolyte derangements including Hyperkalemia and acidosis. * Her creatinine and BUN have improved to 0.7 and 9 respectively (09/08) * Transfuse as needed to keep Hb above 7 (Hb=9.0, 08/31/25) * Monitor input and output. Patient's total output in the past24 hours is 2070, versus 3950 input. * We will repeat a.m. labs and follow up with Nephrology recommendations. Generalized anxiety and Insomnia * Patient very anxious about her health outcomes from the medical complexity * Patient is worried after noticing blood in the ileostomy bag while continuing anticoagulation for DVT * Patient reassured of close monitoring and risk vs benefits on continuing anticoagulation * Continue Mirtazapine 7.5 mg daily ATTESTATION BY PHYSICIAN I have seen and examined the patient. I reviewed the documentation, medical decision making, and treatment plan as noted by the resident physician above. I agree with the findings and plan of care. AYAKA BARR MD, HARSHAVARDHA MD Sep 10, 2025 11:28
[2025-09-10 11:41] VITALS: BP 108/55; PULSE 89; RESP 14; TEMP 97.2
--- NOTE | 2025-09-10 12:16 | PN ---
No significant change in the clinical condition of the patient. The patient is hemoglobin has been stable. Still with a blood in the stools in the ostomy. No surgical intervention recommended. I agree with possible endoscopy and may be varices ligation. I agree with the nurse practitioner Maye note. We will follow with you Vitals/Labs Vital Signs Date Time Temp Pulse Resp B/P (MAP) Pulse Ox O2 Delivery O2 Flow Rate FiO2 09/10/25 11:41 97.2 89 14 108/55 96 Room Air 09/10/25 08:00 0 21 Laboratory Tests 09/10/25 04:59 WOLFGANG ACHARYA MD Sep 10, 2025 12:16
--- NOTE | 2025-09-10 12:29 | PN ---
NEPHROLOGY PROGRESS NOTE Date/Time Patient Seen: Sep 10, 2025 SUBJECTIVE: This is a 55-year-old female with a past medical history of diabetes mellitus type 2, liver cirrhosis, esophageal varices. She initially presented to the hospital with GI bleeding. The patient did have significant hyperkalemia upon admission and did require one course of dialysis. The patient's renal function has greatly improved. The patient had been having some hematochezia through the ostomy and the patient is being seen by Surgical Service and GI She continues to be followed by wound care. The patient is being seen as a followup visit for all of the above. Renal function and electrolytes have been stable. Pending further GI recommendations She was seen in the medical floor, in no acute distress Multiple family members at the bedside REVIEW OF SYSTEMS: GENERAL: Positive for generalized weakness NEUROLOGIC: Negative for any blurry vision, blind spots, double vision, facial asymmetry, dysphagia, dysarthria, hemiparesis, hemisensory deficits, vertigo, ataxia. HEENT: Negative for any head trauma, neck trauma, neck stiffness, photophobia, phonophobia, sinusitis, rhinitis. CARDIAC: Negative for any chest pain, dyspnea on exertion, paroxysmal nocturnal dyspnea, peripheral edema. PULMONARY: Negative for any shortness of breath, wheezing, COPD, or TB exposure. GASTROINTESTINAL: Negative for any abdominal pain, nausea, vomiting, bright red blood per rectum, melena. GENITOURINARY: Negative for any dysuria, hematuria, incontinence. INTEGUMENTARY: Negative for any rashes, cuts, insect bites. RHEUMATOLOGIC: Negative for any joint pains, photosensitive rashes, history of vasculitis or kidney problems. HEMATOLOGIC: Negative for any abnormal bruising, frequent infections or bleeding. Vital Signs (last 8hr) Date Time Temp Pulse Resp B/P (MAP) Pulse Ox O2 Delivery O2 Flow Rate FiO2 09/08/25 09:16 97 Room Air* 0 21 09/08/25 08:00 98.2 78 18 122/69 97 Room Air PHYSICAL EXAM: GENERAL: Alert and oriented x 3. No acute distress. Well-nourished. EYES: EOMI. Anicteric. HENT: Moist mucous membranes. No scleral icterus. No cervical lymphadenopathy. LUNGS: Clear to auscultation bilaterally. No accessory muscle use. CARDIOVASCULAR: Regular rate and rhythm. No murmur. No JVD. ABDOMEN: Soft, non-tender and non-distended. No palpable masses. Ileostomy in place EXTREMITIES: No edema. Non-tender. SKIN: No rashes or lesions. Warm. NEUROLOGIC: No focal neurological deficits. CN II-XII grossly intact, but not individually tested. PSYCHIATRIC: Cooperative. Appropriate mood and affect. Current Medications Medications (Trade) Dose Ordered Sig/Gregory Route PRN Reason Start Time Stop Time Status Last Admin Dose Admin Acetaminophen (TYLenol 325MG TAB) 650 mg Q6H PRN PO MILD PAIN (1-3) 08/29/25 10:00 09/28/25 09:59 Acetaminophen/ Hydrocodone Bitart (NORco 5/325MG) 2 tab Q4H PRN PO SEVERE PAIN (7-10) 09/08/25 09:30 09/13/25 09:29 Albuterol (DUOneb) 1 udvial Q6H PRN IH SHORTNESS OF BREATH 08/29/25 10:00 09/28/25 09:59 Apixaban (EliquIS) 5 mg BID PO 09/08/25 21:00 10/08/25 20:59 Apixaban (EliquIS) 10 mg BID PO 09/07/25 22:00 09/08/25 01:42 DC 09/07/25 22:06 10 MG Apixaban (EliquIS) 10 mg BID PO 09/08/25 09:30 09/08/25 10:13 DC Atorvastatin Calcium (LIPItor 10MG) 5 mg HS PO 09/05/25 21:00 10/05/25 20:59 09/07/25 20:58 5 MG Calcium Gluconate (Calcium Gluc 1gm Vial) 1 gm ONCE IV 08/29/25 09:30 08/29/25 09:23 DC Cyclobenzaprine HCl (Cyclobenzaprine HCl) 5 mg TID PRN PO muscle spasms 09/05/25 11:00 10/05/25 10:59 Dextrose (D50w) 50 ml AD PRN IV HYPOGLYCEMIA PROTOCOL 08/29/25 10:00 09/28/25 09:59 Dextrose/Sodium Chloride 1,000 ml @ 0 mls/hr AD IV 08/29/25 12:30 08/29/25 16:05 DC Duloxetine HCl (CymbALTA 30 mg CAP) 30 mg BID PO 09/03/25 21:00 10/03/25 20:59 09/08/25 09:13 30 MG Enoxaparin Sodium (Lovenox (Pharmacy To Dose)) 1 unit Q12H SQ 09/06/25 13:30 09/06/25 13:21 DC Enoxaparin Sodium (Lovenox 60mg) 60 mg Q12H SQ 09/06/25 13:30 09/07/25 15:03 DC 09/07/25 14:29 60 MG Folic Acid (FOLic ACID 1 MG TABLET) 1 mg DAILY PO 09/08/25 09:00 10/08/25 08:59 09/08/25 09:13 1 MG Glucagon (Glucagon 1mg Kit) 1 mg AD PRN IM HYPOGLYCEMIA PROTOCOL 08/29/25 10:00 09/28/25 09:59 Home Med (Home Medication) (Medroxyprogesterone Acetate (Provera) 1 TAB) DAILY PO 09/06/25 09:00 10/06/25 08:59 Insulin Human Regular (humuLIN R 100 UNIT/ML 3ML) 5 unit ONCE IV 08/29/25 09:30 08/29/25 09:25 DC Insulin Human Regular (humuLIN R 100 UNIT/ML 3ML) INSULIN SLIDING SCAL... ACHS SQ 08/29/25 11:30 09/28/25 11:29 09/06/25 16:27 3 UNIT Insulin Human Regular 100 unit/ Sodium Chloride 101 ml @ 0 mls/hr PROTOCOL IV 08/29/25 12:30 08/29/25 16:05 DC Lactated Ringer's 1,000 ml @ 100 mls/hr Q10H IV 09/06/25 00:00 09/06/25 18:44 DC 09/06/25 08:35 100 MLS/HR Lactulose (Constulose 20gm/ 30ml Udcup) 20 gm BID PO 09/05/25 21:00 10/01/25 13:59 09/07/25 20:59 20 GM Lactulose (Constulose 20gm/ 30ml Udcup) 20 gm TID PO 09/01/25 14:00 09/05/25 10:44 DC 09/05/25 08:06 20 GM Magnesium Sulfate 50 ml @ 0 mls/hr PROTOCOL IV 08/29/25 12:30 08/29/25 16:05 DC Magnesium Sulfate 50 ml @ 0 mls/hr PROTOCOL IV 08/30/25 10:00 09/29/25 09:59 09/08/25 04:26 25 MLS/HR Magnesium Sulfate 50 ml @ 0 mls/hr PROTOCOL IV 09/02/25 13:30 09/02/25 13:04 DC Magnesium Sulfate 50 ml @ 0 mls/hr PROTOCOL IV 09/03/25 08:00 09/03/25 07:43 DC Meropenem (Merrem 500mg) 500 mg Q24H IVPB 08/29/25 10:00 08/31/25 09:59 DC 08/30/25 09:46 500 MG Meropenem (Merrem 500mg) 500 mg Q24H IVPB 08/31/25 23:30 09/10/25 23:29 09/07/25 22:27 500 MG Midodrine (PROAMatine 5 MG TABLET) 10 mg BID PO 09/01/25 09:00 08/31/25 18:36 DC Midodrine (PROAMatine 5 MG TABLET) 10 mg TID PO 09/01/25 09:00 10/01/25 08:59 09/08/25 09:13 10 MG Morphine Sulfate (morPHINE 2MG SYG) 0.5 mg Q4H PRN IVP SEVERE PAIN (7-10) 09/07/25 13:30 09/08/25 09:11 DC 09/08/25 04:27 0.5 MG Morphine Sulfate (morPHINE 2MG SYG) 1 mg Q4H PRN IVP SEVERE PAIN (7-10) 09/05/25 13:30 09/07/25 11:35 DC 09/06/25 23:40 1 MG Morphine Sulfate (morPHINE 2MG SYG) 2 mg Q4H PRN IVP SEVERE PAIN (7-10) 09/01/25 05:30 09/05/25 13:19 DC 09/05/25 04:28 2 MG Norepinephrine Bitartrate 32 mg/ Sodium Chloride 250 ml @ 0 mls/hr Q0M STAT IV 08/29/25 21:01 08/29/25 21:07 DC 08/29/25 21:13 0 MLS/HR Octreotide Acetate 1250 mcg/ Sodium Chloride 250 ml @ 0 mls/hr PROTOCOL IV 08/29/25 08:30 09/01/25 10:32 DC 08/31/25 10:18 5 MLS/HR Ondansetron HCl (zoFRAN 4MG INJ) 4 mg Q6H PRN IVP NAUSEA/VOMITING 08/29/25 09:30 09/28/25 09:29 09/07/25 22:27 4 MG Pantoprazole Sodium (PROTonix 40MG INJ) 40 mg BID IVP 09/01/25 21:00 09/03/25 14:32 DC 09/03/25 09:16 40 MG Pantoprazole Sodium (PROTonix 40MG INJ) 40 mg BID IVP 09/06/25 09:00 10/06/25 08:59 09/08/25 09:12 40 MG Pantoprazole Sodium (PROTonix 40MG TAB) 40 mg DAILY PO 09/04/25 09:00 09/06/25 00:03 DC 09/05/25 08:06 40 MG Pantoprazole Sodium 80 mg/ Sodium Chloride 100 ml @ 10 mls/hr Q10H IV 08/29/25 08:30 09/01/25 10:32 DC 09/01/25 05:50 10 MLS/HR Pharmacy Profile Note (Pharmacy Communication) 1 each ONCE MISC 08/29/25 09:30 08/29/25 09:35 DC Pharmacy Profile Note (Pharmacy Communication) 1 each ONCE MISC 08/31/25 23:30 08/31/25 23:17 DC Potassium Chloride 100 ml @ 50 mls/hr AD PRN IV POTASSIUM PROTOCOL 08/29/25 12:30 09/28/25 12:29 09/02/25 06:26 50 MLS/HR Psyllium Hydrophilic Mucilloid (Metamucil) 1 tbs TID PO 09/04/25 14:00 10/04/25 13:59 09/08/25 09:12 1 TBS Sodium Bicarbonate 150 meq/Dextrose 1,150 ml @ 125 mls/hr Q9H12M IVP 08/29/25 10:00 08/30/25 10:12 DC 08/30/25 08:07 125 MLS/HR Sodium Bicarbonate (Sodium Bicarbonate) 1,300 mg TID PO 09/07/25 14:00 09/08/25 18:00 09/08/25 09:13 1,300 MG Sodium Chloride 250 ml @ 0 mls/hr AD IV 08/29/25 17:30 09/28/25 17:29 Sodium Chloride 1,000 ml @ 0 mls/hr Q0M IV 08/29/25 16:00 08/29/25 16:03 DC Sodium Chloride 1,000 ml @ 0 mls/hr Q0M IV 08/29/25 16:00 09/01/25 08:01 DC 08/29/25 16:10 500 MLS/HR Sodium Chloride 1,000 ml @ 125 mls/hr Q8H IV 08/29/25 09:30 08/29/25 09:57 DC Sodium Chloride 1,000 ml @ 150 mls/hr Q6H40M IV 08/29/25 18:30 09/01/25 09:29 DC 08/31/25 16:16 150 MLS/HR Sodium Chloride 1,000 ml @ 200 mls/hr PROTOCOL IV 08/29/25 12:30 08/29/25 16:05 DC Sodium Chloride 1,000 ml @ 999 mls/hr Q1H1M IV 08/29/25 09:30 08/29/25 09:06 DC Thiamine HCl (Vitamin B-1) 200 mg Q12H IVP 08/29/25 09:30 09/02/25 09:30 DC 09/02/25 08:56 200 MG Vitamin B Complex (Vitamin B-12) 1,000 mcg DAILY PO 09/08/25 09:00 10/08/25 08:59 09/08/25 09:13 1,000 MCG LABORATORY: [ ] Hematology Labs: Test 09/10/25 04:59 09/09/25 04:37 Range/Units White Blood Count 3.6 L 4.8-10.8 K/uL Red Blood Count 2.97 L 4.00-5.50 MIL/uL Hemoglobin 9.2 L 12.0-16.0 g/dL Hematocrit 28.3 L 36-48 % Mean Corpuscular Volume 95.3 79-99 fL Mean Corpuscular Hemoglobin 31.0 27.0-33.0 pg Mean Corpuscular Hemoglobin Concent 32.5 32.0-36.0 g/dL Red Cell Distribution Width 18.0 H 11.0-15.5 % Platelet Count 169 130-400 K/uL Mean Platelet Volume 9.6 7.5-10.5 fL Immature Granulocyte % (Auto) 0.6 0-1 % Neutrophils (%) (Auto) 55.7 40.0-77.0 % Lymphocytes (%) (Auto) 28.2 21.0-51.0 % Monocytes (%) (Auto) 10.8 3.0-13.0 % Eosinophils (%) (Auto) 4.1 0.0-8.0 % Basophils (%) (Auto) 0.6 0.0-5.0 % Neutrophils # (Auto) 2.0 1.8-7.7 K/uL Lymphocytes # (Auto) 1.0 1.0-4.8 K/uL Monocytes # (Auto) 0.4 0.1-1.0 K/uL Eosinophils # (Auto) 0.15 0.00-0.70 K/uL Basophils # (Auto) 0.02 0.00-0.20 K/uL Absolute Immature Granulocyte (auto 0.02 0-1 K/uL Nucleated Red Blood Cells 0.0 0.0-0.19 % Segmented Neutrophils % 61 40-70 % Lymphocytes % (Manual) 26 22-44 % Monocytes % (Manual) 6 2-9 % Eosinophils % (Manual) 7 H 1-6 % Differential Comment MANUAL DIFFERENTIAL White Cell Morphology Comment See comments Platelet Morphology Comment ADEQUATE Red Blood Cell Morphology ANISO 1+ Chemistry Labs: Test 09/10/25 08:16 09/10/25 05:31 09/10/25 04:59 09/09/25 04:37 Range/Units Ammonia 34 H 11-32 umol/L Whole Blood Glucose 90 70-110 MG/DL Sodium Level 136 136-145 mmol/L Potassium Level 3.9 3.5-5.1 mmol/L Chloride Level 108 101-111 mmol/L Carbon Dioxide Level 19 L 21-32 mmol/L Blood Urea Nitrogen 12 7-18 mg/dL Creatinine 0.9 0.5-1.0 mg/dL Glomerular Filtration Rate Calc 75 >90 mL/min Random Glucose 88 70-105 mg/dL Total Calcium 8.1 L 8.5-10.1 mg/dL Total Bilirubin 0.5 0.2-1.0 mg/dL Aspartate Amino Transf (AST/SGOT) 50 H 10-37 U/L Alanine Aminotransferase (ALT/SGPT) 25 12-78 U/L Alkaline Phosphatase 116 50-136 U/L Total Protein 6.1 6.0-8.3 g/dL Albumin 2.3 L 3.5-5.0 g/dL Magnesium Level 1.80 1.80-2.40 mg/dL DIAGNOSTICS / RADIOLOGY: [facility] [address] [place] [address] IMAGING REPORT Signed PATIENT: DALLAS BUCHANAN MR#: [id number] : 1970 SEX: F AGE: 55 LOCATION: 3AH ORDER 99 STATUS: ADM IN REPORT#: [id number] SERVICE 06 REASON: EVALUATE LUQ PIGRTAIL FOR POSSIBLE REMOVAL ORDERING PHYSICIAN: FE BRODY MD PROCEDURE: ABDO WO - CT ABDOMEN W/O CONTRAST EXAM: CT ABDOMEN WITHOUT INTRAVENOUS CONTRAST Technique: Multislice helical computed tomography from the diaphragms through the inguinal region with thin-section axial images and coronal/sagittal reformations; dose reduction applied per ALARA. CTDIvol 6.5 mGy; DLP 204.50 mGy???cm. Contrast: No intravenous contrast administered. Clinical Information: Evaluate left upper-quadrant pigtail catheter for possible removal. Comparison: CT abdomen without contrast 09/06 00:31 EST Findings: Lung bases: Residual trace left pleural effusion with adjacent atelectasis; previously described calcified right lower-lobe pulmonary nodule is not visualized on this limited abdominal coverage. Liver: Nodular hepatic contour consistent with cirrhosis; no focal hepatic lesion identified on this noncontrast study. Gallbladder and biliary tree: Multiple punctate calcifications along the gallbladder wall; no biliary ductal dilatation. Pancreas and spleen: Stable perisplenic fluid collection with an indwelling drainage catheter and adjacent mild fat stranding; pancreatic contour and attenuation are unremarkable. Adrenal glands: Unremarkable bilaterally. Kidneys and ureters: Normal size and morphology; no hydronephrosis or nephrolithiasis. Stomach and bowel: Stomach distended with food residue; right lumbar ileostomy with stable postsurgical bowel changes; no bowel obstruction identified. Peritoneum and mesentery: Stable mild mesenteric edema; interval resolution of the previously noted minimal free fluid along the greater curvature of the stomach; no new free fluid or free intraperitoneal air. Lymph nodes: No pathologic abdominopelvic lymphadenopathy. Vasculature: No abdominal aortic aneurysm. Abdominal wall/soft tissues: No focal collection aside from the described perisplenic drain. Osseous structures: Multilevel mild spondylosis; no acute osseous abnormality. Impression: * Stable perisplenic fluid collection with an indwelling drainage catheter and mild adjacent fat stranding???correlate with drain output, clinical status, and inflammatory markers to determine readiness for catheter removal; interval imaging or catheter study may be helpful if uncertainty persists. * Cirrhotic liver morphology. Recommend clinical and laboratory correlation and hepatology follow-up if not already established. * Gallbladder wall calcifications (punctate pattern) without biliary dilatation???correlate clinically; consider surgical consultation if porcelain gallbladder is suspected based on pattern and extent of calcification. * Residual trace left pleural effusion with adjacent atelectasis; stomach distention with food residue; right lumbar ileostomy with expected postsurgical changes; no new abdominopelvic free fluid or free air. * Compared with 09/06/2025 00:31 EST, the perisplenic collection is unchanged with the drain remaining in place, the previously described minimal perigastric free fluid has resolved, and the prior calcified right lower-lobe nodule is not visualized on this limited abdominal scan; otherwise, no significant interval change. /[place] DICTATED BY: EDWIGE LEDESMA MD DATE: 09/09/251409 ELECTRONICALLY SIGNED BY: EDWIGE LEDESMA MD DATE: 09/09/251409 PATIENT: DALLAS BUCHANAN MR#: [id number] : 1970 SEX: F AGE: 55 LOCATION: 3AH ORDER 2351 STATUS: ADM IN REPORT#: [id number] SERVICE 2346 REASON: abdiominal pain ORDERING PHYSICIAN: CYNTHIA ALEXANDER PROCEDURE: ABDO WO - CT ABDOMEN W/O CONTRAST EXAMINATION CT Abdomen Without IV Contrast CLINICAL HISTORY Patient presents with abdominal pain. TECHNIQUE Axial computed tomography images of the abdomen were obtained without intravenous contrast. CONTRAST No IV contrast administered. COMPARISON 09/01/2025. FINDINGS: LUNG BASES: Residual trace left pleural effusion with adjacent atelectasis. Interval resolution of previously described mild right pleural effusion. Stable calcified nodule in the right lower lobe. LIVER: Nodular hepatic contour consistent with cirrhosis. GALLBLADDER AND BILE DUCTS: Multiple punctate calcifications in the gallbladder wall. No biliary ductal dilatation. PANCREAS AND SPLEEN: Stable perisplenic fluid collection with drainage catheter in situ and adjacent fat stranding. ADRENAL GLANDS: Unremarkable. KIDNEYS AND URETERS: Normal in size and morphology. No hydronephrosis or nephrolithiasis. STOMACH AND BOWEL: Stomach distended with food residue. Right lumbar ileostomy with stable postsurgical bowel changes. Uncomplicated colonic diverticula. A component of mild constipation. PERITONEUM: Stable mild mesenteric edema. Significant interval resolution of the previously demonstrated minimal free fluid along the greater curvature of the stomach. No new free fluid or free air. LYMPH NODES: No significant lymphadenopathy. VASCULATURE: No abdominal aortic aneurysm. BONES: Multilevel mild spondylosis. IMPRESSION: Nodular cirrhotic liver. Stable perisplenic fluid collection with drainage catheter in situ and adjacent fat stranding. Right lumbar ileostomy with stable postsurgical bowel changes. Residual trace left pleural effusion with adjacent atelectasis. Interval resolution of the right pleural effusion. Stable calcified right lower lobe pulmonary nodule. Stomach distended with food residue. Uncomplicated colonic diverticula with mild constipation. Stable mild mesenteric edema with interval resolution of previously described minimal free fluid. Multiple punctate calcifications in the gallbladder wall, likely cholesterolosis. /[place] DICTATED BY: ELDON MILLER Jr., MD DATE: 09/06/25233 ELECTRONICALLY SIGNED BY: ELDON MILLER Jr., MD DATE: 09/06/25233 PATIENT: DALLAS BUCHANAN MR#: [id number] : 1970 SEX: F AGE: 55 LOCATION: 3AH ORDER 18 STATUS: ADM IN REPORT#: [id number] SERVICE 15 REASON: R/o DVT versus SVT ORDERING PHYSICIAN: SONJA PERALTA MD PROCEDURE: VENOUS UNI - US VENOUS DOPPLER UNILATERAL ADDENDUM REPORT ADDENDUM: Results were shared by telephone at 10:59am on 09-06-25 and acknowledged by Patients Nurse Ms. Britt Robert /[place] EXAMINATION: SPECTRAL DOPPLER ULTRASOUND EXAMINATION OF THE RIGHT UPPER EXTREMITY VEINS. CLINICAL HISTORY: To rule out DVT. COMPARISON: None. TECHNIQUE: Grayscale, color, and spectral Doppler images of the right upper extremity veins are submitted. FINDINGS: The internal jugular, subclavian, basilic, and brachial veins are patent. These veins show normal flow with physiological changes of phasicity and augmentation. The right axillary vein and cephalic veins are non-compressible and there is no flow on augmentation. IMPRESSION: Acute deep vein thrombosis in the right axillary vein. Right cephalic vein thrombosis. There is no deep vein thrombosis in the remainder of the right upper extmreiyt, /[place] DICTATED BY: TOBI LEAHY MD DATE: 09/06/251154 ELECTRONICALLY SIGNED BY: DATE: EXAMINATION: SPECTRAL DOPPLER ULTRASOUND EXAMINATION OF THE RIGHT UPPER EXTREMITY VEINS. CLINICAL HISTORY: To rule out DVT. COMPARISON: None. TECHNIQUE: Grayscale, color, and spectral Doppler images of the right upper extremity veins are submitted. FINDINGS: The internal jugular, subclavian, basilic, and brachial veins are patent. These veins show normal flow with physiological changes of phasicity and augmentation. The right axillary vein and cephalic veins are non-compressible and there is no flow on augmentation. IMPRESSION: Acute deep vein thrombosis in the right axillary vein. Right cephalic vein thrombosis. There is no deep vein thrombosis in the remainder of the right upper extmreiyt, /[place] DICTATED BY: TOBI LEAHY MD DATE: 09/06/25941 ELECTRONICALLY SIGNED BY: TOBI LEAHY MD DATE: 09/06/25941 PATIENT: DALLAS BUCHANAN MR#: [id number] : 1970 SEX: F AGE: 55 LOCATION: 3AH ORDER 2300 STATUS: ADM IN REPORT#: [id number] SERVICE 0600 REASON: hypoxic ORDERING PHYSICIAN: LOBO RICKS AGACNReema PROCEDURE: CXR1VW - CHEST 1VW EXAM: CR Chest, 1 View (Portable, Supine). CLINICAL HISTORY: Chest pain. COMPARISON: CR Chest, 2 View ??? 09/01/2025 01:13 AM EDT. FINDINGS: LUNGS: Area of haziness in left lower zone-Remained stable. Rest of the lungs are clear. No focal consolidation, pulmonary edema, or acute infiltrate. PLEURAL SPACES: No pleural effusion or pneumothorax. MEDIASTINUM: Cardiac size and mediastinal contours within normal limits. No acute osseous abnormality. LINES/DEVICES: Monitoring leads noted. No new devices identified. IMPRESSION: Area of haziness in left lower zone likely airspace opacity-Stable compared to previous radiograph. /[place] DICTATED BY: TOBI LEAHY MD DATE: 09/03/251137 ELECTRONICALLY SIGNED BY: TOBI LEAHY MD DATE: 09/03/251137 PATIENT: DALLAS BUCHANAN MR#: [id number] : 1970 SEX: F AGE: 55 LOCATION: 2CV ORDER 1231 STATUS: ADM IN REPORT#: [id number] SERVICE 1227 REASON: EVALUATE LUQ PIGRTAIL FOR POSSIBLE REMOVAL ORDERING PHYSICIAN: SUSAN JHAVERI MD PROCEDURE: ABDO WO - CT ABDOMEN W/O CONTRAST ADDENDUM REPORT ADDENDUM: Results were shared by telephone at 11:21 pm on 09-01-25 and acknowledged by Patient's Nurse Jabier Bangura. /[place] EXAM: CT ABDOMEN WITHOUT INTRAVENOUS CONTRAST Technique: Multislice helical computed tomography of the abdomen was performed from the diaphragms through the iliac crests with axial images and coronal/sagittal reformations. Dose optimization per ALARA. Contrast: No intravenous contrast administered. Contrast Impression: Noncontrast technique limits assessment of enhancement-dependent pathology and characterization of fluid collections. Clinical Information: Evaluation of left upper quadrant pigtail drain for possible removal. Comparison: CT abdomen/pelvis without contrast dated 08/29/2025. Findings: Lung bases: Interval development of small bilateral pleural effusions with dependent subsegmental atelectasis in the lower lobes. Previously described tiny calcified nodules are not conspicuous on the current noncontrast images. Liver: Morphologic features of cirrhosis are unchanged. No focal hepatic lesion identified on this noncontrast study. Gallbladder and bile ducts: Decompressed gallbladder with a cholecystostomy tube in place, stable. No biliary ductal dilatation. Pancreas: Normal contour without peripancreatic inflammatory change. Spleen: Infrasplenic fluid collection adjacent to the splenic inferior pole measuring approximately 2.7 ??? 3.5 ??? 6.4 cm (previously 2.7 ??? 2.2 ??? 5.1 cm), with a pigtail drainage catheter in situ and mild adjacent fat stranding. Adrenal glands: Normal morphology bilaterally. Kidneys and ureters: Kidneys within normal size and contour; no hydronephrosis or hydroureter; no nephrolithiasis. Urinary bladder: Dueñas catheter in place with small intraluminal gas foci, likely iatrogenic; bladder otherwise unremarkable. Stomach and bowel: Right iliac fossa ileostomy defect ( 2.4 cm) and postoperative bowel changes, stable. No evidence of bowel obstruction, enteritis, or colitis. Peritoneum and mesentery: New minimal free fluid predominantly along the greater curvature of the stomach with mild mesenteric edema (anasarca). No free intraperitoneal air. Lymph nodes: No pathologic abdominopelvic lymphadenopathy. Vasculature: Abdominal aorta normal in caliber. Abdominal wall/soft tissues: Expected postoperative changes at the ostomy site; otherwise unremarkable. Osseous structures: No acute or aggressive osseous abnormality; mild degenerative changes in the visualized spine. Impression: * Infrasplenic collection with indwelling pigtail drain has increased in size compared with 08/29/2025 (now 2.7 ??? 3.5 ??? 6.4 cm from 2.7 ??? 2.2 ??? 5.1 cm) with mild surrounding fat stranding???ongoing collection persists. Drain removal is not advised at this time based on interval enlargement; recommend interventional radiology review for catheter position/patency, consideration of catheter upsizing or repositioning, and correlation with output and culture. * New small bilateral pleural effusions with dependent basilar atelectasis. Monitor clinically; consider diuresis or follow-up imaging as indicated. * Cirrhotic hepatic morphology, unchanged. * Decompressed gallbladder with cholecystostomy tube in place, stable; no biliary ductal dilatation. * Minimal ascites and mild mesenteric edema (anasarca), new from prior. * Dueñas catheter with small intravesical gas, likely iatrogenic. * No bowel obstruction, hydronephrosis, or nephrolithiasis identified. /[place] DICTATED BY: EDWIGE LEDESMA MD DATE: 09/01/25 2330 ELECTRONICALLY SIGNED BY: DATE: EXAM: CT ABDOMEN WITHOUT INTRAVENOUS CONTRAST Technique: Multislice helical computed tomography of the abdomen was performed from the diaphragms through the iliac crests with axial images and coronal/sagittal reformations. Dose optimization per ALARA. Contrast: No intravenous contrast administered. Contrast Impression: Noncontrast technique limits assessment of enhancement-dependent pathology and characterization of fluid collections. Clinical Information: Evaluation of left upper quadrant pigtail drain for possible removal. Comparison: CT abdomen/pelvis without contrast dated 08/29/2025. Findings: Lung bases: Interval development of small bilateral pleural effusions with dependent subsegmental atelectasis in the lower lobes. Previously described tiny calcified nodules are not conspicuous on the current noncontrast images. Liver: Morphologic features of cirrhosis are unchanged. No focal hepatic lesion identified on this noncontrast study. Gallbladder and bile ducts: Decompressed gallbladder with a cholecystostomy tube in place, stable. No biliary ductal dilatation. Pancreas: Normal contour without peripancreatic inflammatory change. Spleen: Infrasplenic fluid collection adjacent to the splenic inferior pole measuring approximately 2.7 ??? 3.5 ??? 6.4 cm (previously 2.7 ??? 2.2 ??? 5.1 cm), with a pigtail drainage catheter in situ and mild adjacent fat stranding. Adrenal glands: Normal morphology bilaterally. Kidneys and ureters: Kidneys within normal size and contour; no hydronephrosis or hydroureter; no nephrolithiasis. Urinary bladder: Dueñas catheter in place with small intraluminal gas foci, likely iatrogenic; bladder otherwise unremarkable. Stomach and bowel: Right iliac fossa ileostomy defect ( 2.4 cm) and postoperative bowel changes, stable. No evidence of bowel obstruction, enteritis, or colitis. Peritoneum and mesentery: New minimal free fluid predominantly along the greater curvature of the stomach with mild mesenteric edema (anasarca). No free intraperitoneal air. Lymph nodes: No pathologic abdominopelvic lymphadenopathy. Vasculature: Abdominal aorta normal in caliber. Abdominal wall/soft tissues: Expected postoperative changes at the ostomy site; otherwise unremarkable. Osseous structures: No acute or aggressive osseous abnormality; mild degenerative changes in the visualized spine. Impression: * Infrasplenic collection with indwelling pigtail drain has increased in size compared with 08/29/2025 (now 2.7 ??? 3.5 ??? 6.4 cm from 2.7 ??? 2.2 ??? 5.1 cm) with mild surrounding fat stranding???ongoing collection persists. Drain removal is not advised at this time based on interval enlargement; recommend interventional radiology review for catheter position/patency, consideration of catheter upsizing or repositioning, and correlation with output and culture. * New small bilateral pleural effusions with dependent basilar atelectasis. Monitor clinically; consider diuresis or follow-up imaging as indicated. * Cirrhotic hepatic morphology, unchanged. * Decompressed gallbladder with cholecystostomy tube in place, stable; no biliary ductal dilatation. * Minimal ascites and mild mesenteric edema (anasarca), new from prior. * Dueñas catheter with small intravesical gas, likely iatrogenic. * No bowel obstruction, hydronephrosis, or nephrolithiasis identified. /[place] DICTATED BY: EDWIGE LEDESMA MD DATE: 09/01/252258 ELECTRONICALLY SIGNED BY: EDWIGE LEDESMA MD DATE: 09/01/252258 PATIENT: DALLAS BUCHANAN MR#: [id number] : 1970 SEX: F AGE: 55 LOCATION: 2CV ORDER 1130 STATUS: ADM IN REPORT#: [id number] SERVICE 1127 REASON: Left lower lung lobe opacities ORDERING PHYSICIAN: SONJA PERALTA MD PROCEDURE: CHEST WO - CT CHEST W/O CONTRAST EXAM: CT CHEST WITHOUT INTRAVENOUS CONTRAST Technique: Helical computed tomography of the chest from thoracic inlet through the upper abdomen without intravenous contrast, with axial images and coronal/sagittal reformations. Dose optimization performed in accordance with ALARA. Clinical Information: Left lower lung lobe opacities. Comparison: Chest radiograph dated 09/01/2025 at 05:46 EDT. Findings: Soft tissues: Unremarkable. Lungs and large airways: Central airways are patent. Subsegmental consolidation in the posterior segments of both lower lobes. Additional subsegmental consolidation in the superior segment of the left upper lobe. Linear atelectatic bands in the superior lingular segment and posterior segment of the left upper lobe. A calcified pulmonary nodule measures 5 mm in the right lower lobe (series 3, image 29). Pleura: Minimal bilateral pleural effusions. No pneumothorax. Heart and pericardium: Cardiac size within normal limits. No pericardial effusion. Aorta: Normal course and caliber on this noncontrast study. Pulmonary arteries: Evaluation limited without contrast; no large central filling defect is seen on this noncontrast exam. Lymph nodes: No pathologically enlarged mediastinal or hilar lymph nodes. Mediastinum and toya: No mass identified. Chest wall and lower neck: No acute abnormality. Bones/joints: No acute osseous abnormality. Upper abdomen: Visualized portions without acute abnormality; detailed abdominal findings are reported separately. Impression: * Subsegmental consolidation in the posterior segments of both lower lobes and in the superior segment of the left upper lobe with minimal bilateral pleural effusions???most compatible with multifocal atelectasis versus infection/aspiration in the appropriate clinical context. Recommend clinical correlation and short-interval follow-up chest imaging to document resolution. * Benign-appearing calcified pulmonary nodule in the right lower lobe measuring 5 mm (series 3, image 29), consistent with a granuloma; no additional suspicious nodules identified. * No pneumothorax or acute cardiomediastinal abnormality identified on this noncontrast examination. /[place] DICTATED BY: EDWIGE LEDESMA MD DATE: 09/01/252255 ELECTRONICALLY SIGNED BY: EDWIGE LEDESMA MD DATE: 09/01/252255 PATIENT: DALLAS BUCHANAN MR#: [id number] : 1970 SEX: F AGE: 55 LOCATION: 2CV ORDER 99 STATUS: ADM IN REPORT#: [id number] SERVICE 06 REASON: hypoxic ORDERING PHYSICIAN: LOBO RICKS PROCEDURE: CXR1VW - CHEST 1VW EXAM: CR Chest, 1 View (Portable, Supine). CLINICAL HISTORY: Chest pain. COMPARISON: CR Chest, 2 View ??? 08/31/2025 01:13 AM EDT. FINDINGS: LUNGS: Mild prominence of bronchovascular markings in bilateral lower zone. Area of haziness in left lower zone. Lungs are clear. No focal consolidation, pulmonary edema, or acute infiltrate. PLEURAL SPACES: No pleural effusion or pneumothorax. MEDIASTINUM: Cardiac size and mediastinal contours within normal limits. Right internal jugular central venous catheter remains in similar position with the tip projecting over the distal superior vena cava, unchanged from prior. BONES: No acute osseous abnormality. LINES/DEVICES: Right IJ central venous catheter as described. Monitoring leads noted. No new devices identified. IMPRESSION: * Stable position of right IJ central venous catheter with tip at distal SVC. * Area of haziness in left lower zone likely airspace opacity-New finding compared to previous radiograph. * Mild prominence of bronchovascular markings in bilateral lower zone-New finding compared to previous radiograph. Signed By: EDWIGE LEDESMA M.D. /[place] DICTATED BY: TOBI LEAHY MD DATE: 09/01/251518 ELECTRONICALLY SIGNED BY: TOBI LEAHY MD DATE: 09/01/251518 PATIENT: DALLAS BUCHANAN MR#: [id number] : 1970 SEX: F AGE: 55 LOCATION: 2CV ORDER 2300 STATUS: ADM IN REPORT#: [id number] SERVICE 0600 REASON: hypoxic ORDERING PHYSICIAN: LOBO RICKS PROCEDURE: CXR1VW - CHEST 1VW EXAM: CR Chest, 1 View (Portable, Supine). CLINICAL HISTORY: Chest pain. COMPARISON: CR Chest, 2 View ??? 08/30/2025 01:13 AM EDT. FINDINGS: LUNGS: Lungs are clear. No focal consolidation, pulmonary edema, or acute infiltrate. PLEURAL SPACES: No pleural effusion or pneumothorax. MEDIASTINUM: Cardiac size and mediastinal contours within normal limits. Right internal jugular central venous catheter remains in similar position with the tip projecting over the distal superior vena cava, unchanged from prior. BONES: No acute osseous abnormality. LINES/DEVICES: Right IJ central venous catheter as described. Monitoring leads noted. No new devices identified. IMPRESSION: * Stable position of right IJ central venous catheter with tip at distal SVC. * No pneumothorax or acute cardiopulmonary abnormality. * No significant interval change compared with 08/30/2025 . /[place] DICTATED BY: EDWIGE LEDESMA MD DATE: 08/31/251851 ELECTRONICALLY SIGNED BY: EDWIGE LEDESMA MD DATE: 08/31/251851 PATIENT: DALLAS BUCHANAN MR#: [id number] : 1970 SEX: F AGE: 55 LOCATION: 2CV ORDER 0929 STATUS: ADM IN REPORT#: [id number] SERVICE 1700 REASON: severe renal failure ORDERING PHYSICIAN: BRADEN CONTRERAS MD PROCEDURE: RENAL - US RENAL SONOGRAM EXAM: RENAL AND URINARY BLADDER ULTRASOUND Technique: Grayscale and color Doppler sonography of both kidneys and the urinary bladder was performed. Study quality is adequate. Evaluation of the bladder and ureteral jets is limited by decompression from an indwelling catheter. Clinical Information: Severe renal failure. Findings: Right kidney: Measures 10.3 ??? 5.3 ??? 4.2 centimeters. Renal cortical thickness and echogenicity are within expected limits for technique. No focal mass is identified. No hydronephrosis. No renal calculi. No perinephric fluid collection. Left kidney: Measures 11.0 ??? 4.8 ??? 3.2 centimeters. The renal parenchyma is diffusely increased in echogenicity relative to the adjacent liver and spleen. No focal mass is identified. No hydronephrosis. No renal calculi. No perinephric fluid collection. Urinary bladder: Decompressed with a Dueñas catheter in situ. Bladder wall measures approximately 3 millimeters, which may appear relatively thick due to underdistention. No intraluminal mass or debris is identified on the limited evaluation. Impression: * Left kidney demonstrates increased parenchymal echogenicity, a nonspecific finding commonly associated with medical renal disease in the setting of renal failure. * No hydronephrosis or renal calculi identified bilaterally. * Decompressed urinary bladder with Dueñas catheter in place; apparent wall thickening likely related to underdistention. /[place] DICTATED BY: EDWIGE LEDESMA MD DATE: 08/29/252248 ELECTRONICALLY SIGNED BY: EDWIGE LEDESMA MD DATE: 08/29/252248 PATIENT: DALLAS BUCHANAN MR#: [id number] : 1970 SEX: F AGE: 55 LOCATION: 2CV ORDER 154 STATUS: ADM IN REPORT#: [id number] SERVICE 153 REASON: central line placement ORDERING PHYSICIAN: LOBO RICKS PROCEDURE: CXR1VW - CHEST 1VW EXAM: CR Chest, 2 View. CLINICAL HISTORY: central line placement COMPARISON: None provided. FINDINGS: Right IJ central venous catheter tip projects at the distal SVC. Right peripheral line overlies expected location of the right axillary vessels. LUNGS: The lungs show no infiltrate or other acute finding. Mild left basilar atelectasis. PLEURAL SPACES: No pleural effusion or pneumothorax. MEDIASTINUM: Cardiac size and mediastinal contours within normal limits. BONES: No aggressive appearing osseous lesion seen. Pigtail drainage catheter overlies the right upper quadrant. IMPRESSION: 1. Right IJ central venous catheter tip appropriately positioned in the distal SVC. 2. No acute cardiopulmonary findings. /[place] DICTATED BY: ELDON MILLER Jr., MD DATE: 08/29/251744 ELECTRONICALLY SIGNED BY: ELDON MILLER Jr., MD DATE: 08/29/251744 PATIENT: DALLAS BUCHANAN MR#: [id number] : 1970 SEX: F AGE: 55 LOCATION: 2CV ORDER 9 STATUS: ADM IN REPORT#: [id number] SERVICE 7 REASON: coffee ground emesis, hx of abdominal drain, nausea, vomiting, hx of cirrho ORDERING PHYSICIAN: BRADEN CONTRERAS MD PROCEDURE: ABD PEL WO - CT ABDOMEN/PELVIS W/O CONTRAST EXAM: CT Abdomen and Pelvis Without IV contrast CLINICAL HISTORY: coffee ground emesis, hx of abdominal drain, nausea, vomiting, hx of cirrho TECHNIQUE: Axial computed tomography images of the abdomen and pelvis without intravenous contrast. CONTRAST: No IV contrast. COMPARISON: Study dated 08/23/25. FINDINGS: LUNG BASES: Tiny calcified nodules in the posterior basal segment of the right lower lobe. There is mild dependent airspace disease within the bilateral lower lobes that is presumed to reflect atelectasis. No pleural effusions are seen. LIVER: There is cirrhotic hepatic morphology. Several small esophageal varices are noted. GALLBLADDER AND BILE DUCTS: The gallbladder is decompressed with a cholecystostomy tube in place. No biliary ductal dilatation is evident. PANCREAS: Unremarkable. SPLEEN: 2.7 x 2.2 x 5.1 cm infrasplenic collection with adjacent fat stranding and pigtail tube in place. ADRENAL GLANDS: Unremarkable. KIDNEYS, URETERS, AND BLADDER: The kidneys appear within normal limits. There is no hydronephrosis or hydroureter. No urinary calculi are seen. Dueñas's bulb in the urinary bladder with few air foci. STOMACH AND BOWEL: 2.4 cm ileostomy defect in the right iliac fossa and postoperative changes in the bowel loops. No evidence of bowel obstruction. No evidence suggesting enteritis or colitis. APPENDIX: No evidence of acute appendicitis on CT examination. PERITONEUM: No free fluid. No free air. LYMPH NODES: No lymphadenopathy is evident. REPRODUCTIVE: Unremarkable as visualized. VASCULATURE: No evidence of abdominal aortic aneurysm. BONES: No aggressive appearing osseous lesion. No acute osseous pathology evident. Mild degenerative changes in the spine. IMPRESSION: 1. Cirrhotic hepatic morphology. Several small esophageal varices are noted. 2. 2.7 x 2.2 x 5.1 cm infrasplenic collection with adjacent fat stranding and pigtail tube in place. 3. Cholecystostomy tube in decompressed gallbladder. 4. Ileostomy in right iliac fossa with postoperative changes. /[place] DICTATED BY: ELDON MILLER Jr., MD DATE: 08/29/251619 ELECTRONICALLY SIGNED BY: ELDON MILLER Jr., MD DATE: 08/29/251619 PATIENT: DALLAS BUCHANAN MR#: [id number] : 1970 SEX: F AGE: 55 LOCATION: EDHIP ORDER 6 STATUS: ADM IN REPORT#: [id number] SERVICE 5 REASON: sob ORDERING PHYSICIAN: MILAD WYNN MD PROCEDURE: CXR1VW - CHEST 1VW EXAM: CR Chest, 1 View. CLINICAL HISTORY: sob COMPARISON: None provided. FINDINGS: LUNGS: There is no mass, infiltrate, or acute pulmonary abnormality. Mild left basilar atelectasis and/or parenchymal scarring. PLEURAL SPACES: No evidence of pleural effusion or pneumothorax. MEDIASTINUM: Cardiac size and mediastinal contours within normal limits. BONES: No aggressive appearing osseous lesion seen. IMPRESSION: No acute cardiopulmonary pathology is evident. /[place] DICTATED BY: ELDON MILLER Jr., MD DATE: 08/29/25 1104 ELECTRONICALLY SIGNED BY: ELDON MILLER JDATE: 08/29/25 1104 ASSESSMENT: Severe hyperkalemia Anemia Acute renal failure Hyponatremia Acute upper GI bleeding- Hematemesis, dark output from ileostomy bag, POA, Improving Acute DVT of right axillary vein and right cephalic vein High output from ileostomy bag, not POA Hemorrhagic shock versus hypovolemic shock, POA, Resolved Hypovolemic hypochloremic hyponatremia, POA, Resolved Severe hyperkalemia, POA, Resolved Hyperammonemia, POA, Improving Lactic acidosis, POA, Resolved Hyperphosphatemia, POA, Resolved Starvation Ketoacidosis, POA Rule out occult sepsis, POA Recent extended hospitalization in [facility], 07/20/2025- 5 for sepsis, acute abdomen, POA Severe Dehydration, POA, Improving History of esophageal varices, POA Acute Decompensated liver cirrhosis, POA Hx of acute cholecystitis, s/p cholecystostomy tube placement on 08/02/2025. Perisplenic abscess, s/p CT-guided drainage placement on 08/09/2025. 2.7 x 2.2 x 5.1 cm infrasplenic collection History of gastritis, POA Hx of Generalized peritonitis with ESBL E coli infection, POA Moderate Protein calorie malnutrition POA History of bilious peritonitis with small colonic anastomosis perforation s/p diagnostic laparoscopy, abdominal washout, ileostomy creation by Dr. Jhaveri, 07/21/2025 Hx of DM II, POA Recent colovesical fistula repair with sigmoid colon resection and anastomosis on PLAN: Labs, diagnostic, radiologic exams reviewed and interpreted by myself and supervising physician. We have reviewed external records in detail Pending further GI recommendations Require close monitoring of renal function and electrolytes Order CBC, CMP, and electrolytes in am Continue with antibiotics BiPAP as necessary, for respiratory distress Monitor blood pressure adjust medication doses as needed Avoid hypotensive episodes May use Dilaudid 0.5 mg IV every 6 hours as needed for severe pain Monitor blood sugars Strict intake, output, and daily weight should be monitored Please renally adjust medications Avoid nephrotoxic and nonsteroidal drugs Avoid contrast if possible Will continue to monitor renal function, anemia, electrolytes Treatment plan discussed with patient Questions were answered We have discussed with the other team physicians in detail about the care plan We will continue to monitor the patient closely ATTESTATION BY PHYSICIAN I have seen and examined the patient. I reviewed the documentation, medical decision making, and treatment plan as noted by the mid-level provider above. I agree with the findings and plan of care. CIELO PORTILLO MD, [facility] Sep 10, 2025 12:29
--- NOTE | 2025-09-10 13:04 | PN ---
50-year-old female with underlying history of type 2 diabetes mellitus, history of liver cirrhosis, prior history of esophageal varices requiring banding in May,, history of robotic sigmoid resection with takedown of colovesical fistula who was recently hospitalized in [facility] from 07/20/2025 - 08/25/2025 patient was found to have bilious peritonitis with 2 mm perforation of colonic anastomosis requiring diagnostic laparoscopy, abdominal washout and drain placement with creation of diverting loop ileostomy. Patient was hospitalized for about one month and subsequently required IR guided drain placement as well. She was just discharged from the hospital on 08/25/2025. Patient's daughter reports that patient was having nausea and vomiting with poor oral intake at home. She started to have coffee-ground emesis today and she also noticed some right streaks of blood with a coffee-ground emesis. Stool has also been dark in the ileostomy bag. Patient is having moderate intensity abdominal pain as well. She has not been taking any NSAIDs. Daughter reports that patient has been very weak since her discharge in very debilitated. Patient denies active chest pain. Denies active shortness of breath. 09/06/25 Patient was seen and evaluated at bedside. She is currently doing well, denies any nausea or abdominal pain or vomiting. As per the nurse, she had bright red blood in her ileostomy bag last night but it was clear this morning. Venous Doppler of RUE revealed DVT in right axillary vein and thrombosis of rt cephalic vein and we were consulted for the same. 09/07/25 Patient was seen and evaluated at bedside. She admits to doing well, has complaints of generalized body pain but denies pain to her right arm. She had blood mixed with stool in her ileostomy bag and a total output of 225ml last night as per the primary nurse, currently no blood noted in the ileostomy bag or the drain. Patient was started on Eliquis 5 mg p.o. twice daily. There is no obvious bleeding PHYSICAL EXAM LUNGS: Good air entry. No rales, no rhonchi. CARDIOVASCULAR: S1, S2 regular. No murmur heard. ABDOMEN: Soft, non tender, bowel sounds present, no organomegaly CENTRAL NERVOUS SYSTEM: Awake, alert, oriented x 3. No focal deficits. SKIN: No rashes, no swelling. LYMPHATICS: No peripheral lymphadenopathy MUSCULOSKELETAL: No joint swelling, erythema or tenderness. EXTREMITIES: No cyanosis or clubbing IMPRESSION 1. Acute DVT of Right axillary vein . Patient was started on Eliquis 5 mg p.o. twice daily 2. Iron Deficiency Anemia 3. Acute upper GI bleed, resolved 4. Liver cirrhosis 5. Prerenal CYNTHIA, resolved PLAN 1. Patient is on Eliquis 5 mg p.o. twice daily. 2.Peripheral blood smear shows microcytic hypochromic anemia consistent with iron deficiency anemia . There is no teardrop cell, pelger huet cell or rouleaux formation Cytoplasmic vacuolation seen in neutrophils. Platelet morphology and count within normal limits . 3. There is hypersegmented neutrophil. This patient will benefit from Folic acid 1 mg daily and Vitamin B12 1000 mcg daily 4. CBC to be done tomorrow. If the CBC is stable especially with the hemoglobin we will continue Eliquis. If there is decrease in the hemoglobin then maybe we need to stop anticoagulation Vitals/Labs Vital Signs Date Time Temp Pulse Resp B/P (MAP) Pulse Ox O2 Delivery O2 Flow Rate FiO2 09/10/25 11:41 97.2 89 14 108/55 96 Room Air 09/10/25 08:00 0 21 Laboratory Tests 09/10/25 04:59 Medications Current Medications Octreotide Acetate 50 mcg ONCE ONCE IV Last administered on 08/29/25at 09:02; Start 08/29/25 at 08:30; Stop 08/29/25 at 08:31; Status DC Octreotide Acetate 1250 mcg/ Sodium Chloride 250 ml @ 0 mls/hr PROTOCOL IV Last administered on 08/31/25at 10:18; Start 08/29/25 at 08:30; Stop 09/01/25 at 10:32; Status DC Pantoprazole Sodium 80 mg ONCE ONCE IVP Last administered on 08/29/25at 09:02; Start 08/29/25 at 08:30; Stop 08/29/25 at 08:31; Status DC Pantoprazole Sodium 80 mg/ Sodium Chloride 100 ml @ 10 mls/hr Q10H IV Last administered on 09/01/25at 05:50; Start 08/29/25 at 08:30; Stop 09/01/25 at 10:32; Status DC Promethazine HCl 25 mg ONCE ONCE IM Last administered on 08/29/25at 09:07; Start 08/29/25 at 08:30; Stop 08/29/25 at 08:33; Status DC Sodium Chloride 1,000 ml @ 999 mls/hr Q1H1M IV; Start 08/29/25 at 09:30; Stop 08/29/25 at 09:06; Status DC Calcium Gluconate 1 gm/Sodium Chloride 110 ml @ 110 mls/hr ONCE ONCE IV Last administered on 08/29/25at 09:41; Start 08/29/25 at 09:30; Stop 08/29/25 at 10:29; Status DC Dextrose 50 ml ONCE ONCE IV; Start 08/29/25 at 09:30; Stop 08/29/25 at 09:27; Status DC Insulin Human Regular 5 unit ONCE ONCE IV Last administered on 08/29/25at 09:57; Start 08/29/25 at 09:30; Stop 08/29/25 at 09:31; Status DC Albuterol Sulfate 10 mg ONCE ONCE IH Last administered on 08/29/25at 09:37; Start 08/29/25 at 09:30; Stop 08/29/25 at 09:31; Status DC Lactulose 200 gm ONCE ONCE UT; Start 08/29/25 at 09:30; Stop 08/29/25 at 09:36; Status DC Calcium Gluconate 1 gm ONCE IV; Start 08/29/25 at 09:30; Stop 08/29/25 at 09:23; Status DC Sodium Chloride 1,000 ml @ 125 mls/hr Q8H IV; Start 08/29/25 at 09:30; Stop 08/29/25 at 09:57; Status DC Insulin Human Regular 5 unit ONCE IV; Start 08/29/25 at 09:30; Stop 08/29/25 at 09:25; Status DC Dextrose 50 ml ONCE ONCE IV Last administered on 08/29/25at 09:47; Start 08/29/25 at 09:30; Stop 08/29/25 at 09:31; Status DC Sodium Bicarbonate 50 meq ONCE ONCE IV Last administered on 08/29/25at 09:47; Start 08/29/25 at 09:30; Stop 08/29/25 at 09:31; Status DC Pharmacy Profile Note 1 each ONCE MISC; Start 08/29/25 at 09:30; Stop 08/29/25 at 09:35; Status DC Ondansetron HCl 4 mg Q6H PRN IVP Last administered on 09/09/25at 10:42; Start 08/29/25 at 09:30; Stop 09/28/25 at 09:29 Thiamine HCl 200 mg Q12H IVP Last administered on 09/02/25at 08:56; Start 08/29/25 at 09:30; Stop 09/02/25 at 09:30; Status DC Meropenem 500 mg Q24H IVPB Last administered on 08/30/25at 09:46; Start 08/29/25 at 10:00; Stop 08/31/25 at 09:59; Status DC Sodium Chloride 1,000 ml @ 0 mls/hr ONCE ONCE IV Last administered on 08/29/25at 09:47; Start 08/29/25 at 10:00; Stop 08/29/25 at 10:01; Status DC Dextrose 50 ml AD PRN IV; Start 08/29/25 at 10:00; Stop 09/28/25 at 09:59 Glucagon 1 mg AD PRN IM; Start 08/29/25 at 10:00; Stop 09/28/25 at 09:59 Acetaminophen 650 mg Q6H PRN PO; Start 08/29/25 at 10:00; Stop 09/28/25 at 09:59 Albuterol 1 udvial Q6H PRN IH; Start 08/29/25 at 10:00; Stop 09/28/25 at 09:59 Sodium Bicarbonate 50 meq ONCE ONCE IV Last administered on 08/29/25at 10:12; Start 08/29/25 at 10:00; Stop 08/29/25 at 10:05; Status DC Sodium Bicarbonate 150 meq/Dextrose 1,150 ml @ 125 mls/hr Q9H12M IVP Last administered on 08/30/25at 08:07; Start 08/29/25 at 10:00; Stop 08/30/25 at 10:12; Status DC Insulin Human Regular INSULIN SLIDING SCAL... ACHS SQ Last administered on 09/09/25at 17:02; Start 08/29/25 at 11:30; Stop 09/28/25 at 11:29 Sodium Chloride 1,000 ml @ 0 mls/hr ONCE ONCE IV Last administered on 08/29/25at 13:44; Start 08/29/25 at 11:00; Stop 08/29/25 at 11:06; Status DC Sodium Chloride 1,000 ml @ 200 mls/hr PROTOCOL IV; Start 08/29/25 at 12:30; Stop 08/29/25 at 16:05; Status DC Magnesium Sulfate 50 ml @ 0 mls/hr PROTOCOL IV; Start 08/29/25 at 12:30; Stop 08/29/25 at 16:05; Status DC Insulin Human Regular 100 unit/ Sodium Chloride 101 ml @ 0 mls/hr PROTOCOL IV; Start 08/29/25 at 12:30; Stop 08/29/25 at 16:05; Status DC Dextrose/Sodium Chloride 1,000 ml @ 0 mls/hr AD IV; Start 08/29/25 at 12:30; Stop 08/29/25 at 16:05; Status DC Potassium Chloride 100 ml @ 50 mls/hr AD PRN IV Last administered on 09/02/25at 06:26; Start 08/29/25 at 12:30; Stop 09/28/25 at 12:29 Lidocaine HCl 20 ml STK-MED ONCE .ROUTE; Start 08/29/25 at 14:24; Stop 08/29/25 at 14:25; Status DC Lidocaine HCl 20 ml STK-MED ONCE .ROUTE Last administered on 08/29/25at 15:59; Start 08/29/25 at 14:25; Stop 08/29/25 at 14:25; Status DC Sodium Chloride 1,000 ml @ 0 mls/hr Q0M IV; Start 08/29/25 at 16:00; Stop 08/29/25 at 16:03; Status DC Sodium Chloride 1,000 ml @ 0 mls/hr Q0M IV Last administered on 08/29/25at 16:10; Start 08/29/25 at 16:00; Stop 09/01/25 at 08:01; Status DC Sodium Chloride 250 ml @ 0 mls/hr AD IV; Start 08/29/25 at 17:30; Stop 09/28/25 at 17:29 Sodium Chloride 1,000 ml @ 0 mls/hr ONCE ONCE IV Last administered on 08/29/25at 19:57; Start 08/29/25 at 17:30; Stop 08/29/25 at 17:35; Status DC Sodium Chloride 1,000 ml @ 150 mls/hr Q6H40M IV Last administered on 08/31/25at 16:16; Start 08/29/25 at 18:30; Stop 09/01/25 at 09:29; Status DC Dexmedetomidine/ Sodium Chloride 400 mcg STK-MED ONCE IV; Start 08/29/25 at 19:56; Stop 08/29/25 at 19:56; Status DC Norepinephrine Bitartrate 32 mg/ Sodium Chloride 250 ml @ 0 mls/hr Q0M STAT IV Last administered on 08/29/25at 21:13; Start 08/29/25 at 21:01; Stop 08/29/25 at 21:07; Status DC Magnesium Sulfate 50 ml @ 0 mls/hr PROTOCOL IV Last administered on 09/08/25at 04:26; Start 08/30/25 at 10:00; Stop 09/29/25 at 09:59 Morphine Sulfate 2 mg ONCE ONCE IVP Last administered on 08/31/25at 02:24; Start 08/31/25 at 02:30; Stop 08/31/25 at 02:31; Status DC Potassium Phosphate 250 ml @ 42 mls/hr PROTOCOL ONCE IV Last administered on 08/31/25at 10:11; Start 08/31/25 at 09:00; Stop 08/31/25 at 14:57; Status DC Multivitamins/ Minerals 10 ml/ Chromium/Copper/ Manganese/Zinc 3 ml/Amino Acids/ Electrolytes/ Dextrose 2,000 ml @ 83 mls/hr ONCE ONCE IV Last administered on 08/31/25at 20:53; Start 08/31/25 at 20:00; Stop 09/01/25 at 11:25; Status DC Midodrine 10 mg BID PO; Start 09/01/25 at 09:00; Stop 08/31/25 at 18:36; Status DC Midodrine 10 mg ONCE ONCE PO Last administered on 08/31/25at 18:36; Start 08/31/25 at 18:30; Stop 08/31/25 at 18:31; Status DC Midodrine 10 mg TID PO Last administered on 09/08/25at 16:16; Start 09/01/25 at 09:00; Stop 09/08/25 at 17:20; Status DC Pharmacy Profile Note 1 each ONCE MISC; Start 08/31/25 at 23:30; Stop 08/31/25 at 23:17; Status DC Meropenem 500 mg Q24H IVPB Last administered on 09/09/25at 23:40; Start 08/31/25 at 23:30; Stop 09/10/25 at 02:29; Status DC Morphine Sulfate 2 mg Q4H PRN IVP Last administered on 09/05/25at 04:28; Start 09/01/25 at 05:30; Stop 09/05/25 at 13:19; Status DC Propofol 200 mg STK-MED ONCE IV; Start 09/01/25 at 09:53; Stop 09/01/25 at 09:53; Status DC Ketamine HCl 50 mg STK-MED ONCE .ROUTE; Start 09/01/25 at 09:53; Stop 09/01/25 at 09:53; Status DC Pantoprazole Sodium 40 mg BID IVP Last administered on 09/03/25at 09:16; Start 09/01/25 at 21:00; Stop 09/03/25 at 14:32; Status DC Lactulose 20 gm TID PO Last administered on 09/05/25at 08:06; Start 09/01/25 at 14:00; Stop 09/05/25 at 10:44; Status DC Multivitamins/ Minerals 10 ml/ Amino Acids/ Electrolytes/ Dextrose 2,000 ml @ 83 mls/hr ONCE ONCE IV Last administered on 09/01/25at 22:13; Start 09/01/25 at 20:00; Stop 09/02/25 at 20:05; Status DC Magnesium Sulfate 50 ml @ 0 mls/hr PROTOCOL IV; Start 09/02/25 at 13:30; Stop 09/02/25 at 13:04; Status DC Magnesium Sulfate 50 ml @ 0 mls/hr PROTOCOL IV; Start 09/03/25 at 08:00; Stop 09/03/25 at 07:43; Status DC Pantoprazole Sodium 40 mg DAILY PO Last administered on 09/05/25at 08:06; Start 09/04/25 at 09:00; Stop 09/06/25 at 00:03; Status DC Duloxetine HCl 30 mg BID PO Last administered on 09/09/25at 10:37; Start 09/03/25 at 21:00; Stop 09/09/25 at 11:10; Status DC Psyllium Hydrophilic Mucilloid 1 tbs TID PO Last administered on 09/10/25at 10:31; Start 09/04/25 at 14:00; Stop 10/04/25 at 13:59 Cyclobenzaprine HCl 5 mg TID PRN PO; Start 09/05/25 at 11:00; Stop 10/05/25 at 10:59 Home Med (Medroxyprogesterone Acetate (Provera) 1 TAB) DAILY PO; Start 09/06/25 at 09:00; Stop 10/06/25 at 08:59 Atorvastatin Calcium 5 mg HS PO Last administered on 09/09/25at 20:56; Start 09/05/25 at 21:00; Stop 10/05/25 at 20:59 Lactulose 20 gm BID PO Last administered on 09/10/25at 07:59; Start 09/05/25 at 21:00; Stop 10/01/25 at 13:59 Morphine Sulfate 1 mg Q4H PRN IVP Last administered on 09/06/25at 23:40; Start 09/05/25 at 13:30; Stop 09/07/25 at 11:35; Status DC Lactated Ringer's 1,000 ml @ 100 mls/hr Q10H IV Last administered on 09/06/25at 08:35; Start 09/06/25 at 00:00; Stop 09/06/25 at 18:44; Status DC Pantoprazole Sodium 40 mg BID IVP Last administered on 09/10/25at 07:59; Start 09/06/25 at 09:00; Stop 10/06/25 at 08:59 Enoxaparin Sodium 1 unit Q12H SQ; Start 09/06/25 at 13:30; Stop 09/06/25 at 13:21; Status DC Enoxaparin Sodium 60 mg Q12H SQ Last administered on 09/07/25at 14:29; Start 09/06/25 at 13:30; Stop 09/07/25 at 15:03; Status DC Folic Acid 1 mg DAILY PO Last administered on 09/10/25at 07:58; Start 09/08/25 at 09:00; Stop 10/08/25 at 08:59 Vitamin B Complex 1,000 mcg DAILY PO Last administered on 09/10/25at 07:58; Start 09/08/25 at 09:00; Stop 10/08/25 at 08:59 Sodium Bicarbonate 1,300 mg TID PO Last administered on 09/08/25at 16:15; Start 09/07/25 at 14:00; Stop 09/08/25 at 18:00; Status DC Morphine Sulfate 0.5 mg Q4H PRN IVP Last administered on 09/08/25at 04:27; Start 09/07/25 at 13:30; Stop 09/08/25 at 09:11; Status DC Apixaban 10 mg BID PO Last administered on 09/07/25at 22:06; Start 09/07/25 at 22:00; Stop 09/08/25 at 01:42; Status DC Apixaban 10 mg BID PO; Start 09/08/25 at 09:30; Stop 09/08/25 at 10:13; Status DC Acetaminophen/ Hydrocodone Bitart 2 tab Q4H PRN PO Last administered on 09/10/25at 02:41; Start 09/08/25 at 09:30; Stop 09/13/25 at 09:29 Apixaban 5 mg BID PO Last administered on 09/10/25at 07:58; Start 09/08/25 at 21:00; Stop 10/08/25 at 20:59 Midodrine 5 mg TID PO Last administered on 09/09/25at 15:24; Start 09/08/25 at 21:00; Stop 09/10/25 at 08:05; Status DC Melatonin 5 mg ONCE ONCE PO Last administered on 09/08/25at 21:35; Start 09/08/25 at 21:00; Stop 09/08/25 at 21:01; Status DC Morphine Sulfate 0.5 mg Q4H PRN IVP; Start 09/08/25 at 18:00; Stop 09/09/25 at 11:10; Status DC Sodium Bicarbonate 1,300 mg TID PO Last administered on 09/10/25at 10:31; Start 09/09/25 at 09:00; Stop 09/10/25 at 12:00; Status DC Mirtazapine 7.5 mg HS PO Last administered on 09/09/25at 20:57; Start 09/09/25 at 21:00; Stop 10/09/25 at 20:59 Midodrine 5 mg BID PO; Start 09/10/25 at 09:00; Stop 10/08/25 at 20:59 LYNDSEY GOYAL MD Sep 10, 2025 13:04
--- NOTE | 2025-09-10 14:04 | PN ---
INFECTIOUS DISEASE PROGRESS NOTE Date of Service: Sep 10, 2025 SUBJECTIVE: This 55-year-old female patient is being seen today bedside. Awake, alert and oriented x3. patient remains on Merrem. No fever no chills. No chest pain or palpitations. She is in no respiratory distress. She continues with wound care, drain care. We will continue to follow up with General surgery recommendations. PHYSICAL EXAM EYES: Anicteric. Pupils equal and reactive. HENT: No oral thrush seen, moist Oral mucosa. NECK: Supple, no JVD or thyromegaly. LUNGS: Good air entry. No rales, no rhonchi. CARDIOVASCULAR: S1, S2 regular. No murmur heard. ABDOMEN: Soft, non tender, bowel sounds present. Right ileostomy. Left Perisplenic abscess percutaneous drainage catheter. CENTRAL NERVOUS SYSTEM: Awake, alert, oriented x 3. SKIN: No rashes, no swelling. LYMPHATICS: No peripheral lymphadenopathy. MUSCULOSKELETAL: No joint swelling, erythema or tenderness. EXTREMITIES: No cyanosis or clubbing. BACK: No deformity, no pressure ulcer. GENITOURINARY: No dysuria or hematuria. Dueñas catheter. Vital Sign (Last 12 Hours) 09/10/25 09/10/25 09/10/25 09/10/25 04:00 08:00 08:00 11:41 Temp 97.9 98.1 97.2 Pulse 87 79 89 Resp 20 18 14 B/P (MAP) 124/76 124/69 108/55 Pulse Ox 98 99 98 96 O2 Delivery Room Air Room Air* Room Air Room Air O2 Flow Rate 0 FiO2 21 Intake & Output (last 24hrs) 09/09/25 09/09/25 09/10/25 15:00 23:00 07:00 Intake Total 221.0 ml 100.0 ml Output Total 310 ml 850 ml Balance -89.0 ml -750.0 ml LABS: Laboratory: Test 09/10/25 12:29 09/10/25 08:16 09/10/25 04:59 09/09/25 04:37 Range/Units Whole Blood Glucose 96 70-110 MG/DL Ammonia 34 H 11-32 umol/L White Blood Count 3.6 L 4.8-10.8 K/uL Red Blood Count 2.97 L 4.00-5.50 MIL/uL Hemoglobin 9.2 L 12.0-16.0 g/dL Hematocrit 28.3 L 36-48 % Mean Corpuscular Volume 95.3 79-99 fL Mean Corpuscular Hemoglobin 31.0 27.0-33.0 pg Mean Corpuscular Hemoglobin Concent 32.5 32.0-36.0 g/dL Red Cell Distribution Width 18.0 H 11.0-15.5 % Platelet Count 169 130-400 K/uL Mean Platelet Volume 9.6 7.5-10.5 fL Immature Granulocyte % (Auto) 0.6 0-1 % Neutrophils (%) (Auto) 55.7 40.0-77.0 % Lymphocytes (%) (Auto) 28.2 21.0-51.0 % Monocytes (%) (Auto) 10.8 3.0-13.0 % Eosinophils (%) (Auto) 4.1 0.0-8.0 % Basophils (%) (Auto) 0.6 0.0-5.0 % Neutrophils # (Auto) 2.0 1.8-7.7 K/uL Lymphocytes # (Auto) 1.0 1.0-4.8 K/uL Monocytes # (Auto) 0.4 0.1-1.0 K/uL Eosinophils # (Auto) 0.15 0.00-0.70 K/uL Basophils # (Auto) 0.02 0.00-0.20 K/uL Absolute Immature Granulocyte (auto 0.02 0-1 K/uL Nucleated Red Blood Cells 0.0 0.0-0.19 % Sodium Level 136 136-145 mmol/L Potassium Level 3.9 3.5-5.1 mmol/L Chloride Level 108 101-111 mmol/L Carbon Dioxide Level 19 L 21-32 mmol/L Blood Urea Nitrogen 12 7-18 mg/dL Creatinine 0.9 0.5-1.0 mg/dL Glomerular Filtration Rate Calc 75 >90 mL/min Random Glucose 88 70-105 mg/dL Total Calcium 8.1 L 8.5-10.1 mg/dL Total Bilirubin 0.5 0.2-1.0 mg/dL Aspartate Amino Transf (AST/SGOT) 50 H 10-37 U/L Alanine Aminotransferase (ALT/SGPT) 25 12-78 U/L Alkaline Phosphatase 116 50-136 U/L Total Protein 6.1 6.0-8.3 g/dL Albumin 2.3 L 3.5-5.0 g/dL Segmented Neutrophils % 61 40-70 % Lymphocytes % (Manual) 26 22-44 % Monocytes % (Manual) 6 2-9 % Eosinophils % (Manual) 7 H 1-6 % Differential Comment MANUAL DIFFERENTIAL White Cell Morphology Comment See comments Platelet Morphology Comment ADEQUATE Red Blood Cell Morphology ANISO 1+ Magnesium Level 1.80 1.80-2.40 mg/dL ASSESSMENT: Acute hypoxic respiratory failure requiring oxygen support, resolved. Sepsis, resolved. Gastrointestinal bleeding, status post EGD. Acute renal failure requiring dialysis, resolved. Dehydration, resolving. Hypokalemia, resolved. Anemia. Thrombocytopenia. Diabetes mellitus. Cholecystostomy tube placement on 08/02/2025 due to acute cholecystitis, s/p removal on 09/01/2025. Perisplenic abscess with a recent CT-guided drainage placement on 08/09/2025. Recent laparoscopy, abdominal washout, ileostomy creation on 07/21/2025. PLAN: Continue Meropenem. Continue antidiabetics. Monitor for bleeding. Continue IV fluids. Continue Protonix. Continue pain management. Continue percutaneous drain care. This case was reviewed and discussed with my supervising physician Dr. Tripathi and the above assessment and plan was formulated and agreed upon. ANNABELLA [employer] Sep 10, 2025 14:04
[2025-09-10 16:40] VITALS: BP 110/66; PULSE 100; RESP 18; TEMP 97.9
[2025-09-10] MEDS: SODIUM BICARBONATE 650 MG TAB PO SCH (17:19)
[2025-09-10 20:00] VITALS: BP 107/64; PULSE 110; RESP 16; TEMP 97.8; O2SAT 98
[2025-09-11] VITALS (7 sets, daily range): BP systolic 119–142; BP diastolic 57–84; PULSE 89–108; RESP 16–20; TEMP 97.6–98.2; O2SAT 98–99
--- NOTE | 2025-09-11 04:30 | NUR ---
ILEOSTOMY CHANGE ILEOSTOMY LEAKING, ILEOSTOMY BAG CHANGED,NEW APPLIACE APPLIED USING PATIENT'S SUPPLIES
[2025-09-11 05:39] LABS: NUCLEATED RED BLOOD CELLS 0.0 % (0.0-0.19); PLATELET COUNT (AUTO) 202.0 K/uL (130-400); RED BLOOD CELL COUNT(AUTO) 3.08 MIL/uL (4.00-5.50); RED CELL DISTRIBUTION WIDTH 18.6 % (11.0-15.5); WHITE BLOOD COUNT (AUTO) 4.7 K/uL (4.8-10.8)
[2025-09-11 06:01] LABS: CREATININE 0.9 mg/dL (0.5-1.0); GLOMERULAR FILTR. RATE CALC 75.0 mL/min (>90); GLUCOSE,RANDOM 101.0 mg/dL (70-105); SODIUM SERUM 135.0 mmol/L (136-145); UREA NITROGEN, BLOOD 12.0 mg/dL (7-18)
--- NOTE | 2025-09-11 11:50 | PN ---
NEPHROLOGY PROGRESS NOTE Date/Time Patient Seen: Sep 11, 2025 SUBJECTIVE: This is a 55-year-old female with a past medical history of diabetes mellitus type 2, liver cirrhosis, esophageal varices. She initially presented to the hospital with GI bleeding. The patient did have significant hyperkalemia upon admission and did require one course of dialysis. The patient's renal function has greatly improved. The patient had been having some hematochezia through the ostomy and the patient is being seen by Surgical Service and GI She continues to be followed by wound care. The patient is being seen as a followup visit for all of the above. Renal function and electrolytes have been stable. Pending EGD She was seen in the medical floor, in no acute distress Multiple family members at the bedside REVIEW OF SYSTEMS: GENERAL: Positive for generalized weakness NEUROLOGIC: Negative for any blurry vision, blind spots, double vision, facial asymmetry, dysphagia, dysarthria, hemiparesis, hemisensory deficits, vertigo, ataxia. HEENT: Negative for any head trauma, neck trauma, neck stiffness, photophobia, phonophobia, sinusitis, rhinitis. CARDIAC: Negative for any chest pain, dyspnea on exertion, paroxysmal nocturnal dyspnea, peripheral edema. PULMONARY: Negative for any shortness of breath, wheezing, COPD, or TB exposure. GASTROINTESTINAL: Negative for any abdominal pain, nausea, vomiting, bright red blood per rectum, melena. GENITOURINARY: Negative for any dysuria, hematuria, incontinence. INTEGUMENTARY: Negative for any rashes, cuts, insect bites. RHEUMATOLOGIC: Negative for any joint pains, photosensitive rashes, history of vasculitis or kidney problems. HEMATOLOGIC: Negative for any abnormal bruising, frequent infections or bleeding. Vital Signs (last 8hr) Date Time Temp Pulse Resp B/P (MAP) Pulse Ox O2 Delivery O2 Flow Rate FiO2 09/11/25 08:00 97.5 103 16 131/72 98 Room Air 09/11/25 08:00 98 Room Air* 0 21 PHYSICAL EXAM: GENERAL: Alert and oriented x 3. No acute distress. Well-nourished. EYES: EOMI. Anicteric. HENT: Moist mucous membranes. No scleral icterus. No cervical lymphadenopathy. LUNGS: Clear to auscultation bilaterally. No accessory muscle use. CARDIOVASCULAR: Regular rate and rhythm. No murmur. No JVD. ABDOMEN: Soft, non-tender and non-distended. No palpable masses. Ileostomy in place EXTREMITIES: No edema. Non-tender. SKIN: No rashes or lesions. Warm. NEUROLOGIC: No focal neurological deficits. CN II-XII grossly intact, but not individually tested. PSYCHIATRIC: Cooperative. Appropriate mood and affect. Current Medications Medications (Trade) Dose Ordered Sig/Gregory Route Start Time Stop Time Status Last Admin Dose Admin Apixaban (EliquIS) 5 mg BID PO 09/08/25 21:00 10/08/25 20:59 09/11/25 08:17 5 MG Apixaban (EliquIS) 10 mg BID PO 09/07/25 22:00 09/08/25 01:42 DC 09/07/25 22:06 10 MG Apixaban (EliquIS) 10 mg BID PO 09/08/25 09:30 09/08/25 10:13 DC Atorvastatin Calcium (LIPItor 10MG) 5 mg HS PO 09/05/25 21:00 10/05/25 20:59 09/10/25 20:25 5 MG Calcium Gluconate (Calcium Gluc 1gm Vial) 1 gm ONCE IV 08/29/25 09:30 08/29/25 09:23 DC Dextrose/Sodium Chloride 1,000 ml @ 0 mls/hr AD IV 08/29/25 12:30 08/29/25 16:05 DC Duloxetine HCl (CymbALTA 30 mg CAP) 30 mg BID PO 09/03/25 21:00 09/09/25 11:10 DC 09/09/25 10:37 30 MG Enoxaparin Sodium (Lovenox (Pharmacy To Dose)) 1 unit Q12H SQ 09/06/25 13:30 09/06/25 13:21 DC Enoxaparin Sodium (Lovenox 60mg) 60 mg Q12H SQ 09/06/25 13:30 09/07/25 15:03 DC 09/07/25 14:29 60 MG Folic Acid (FOLic ACID 1 MG TABLET) 1 mg DAILY PO 09/08/25 09:00 10/08/25 08:59 09/11/25 08:16 1 MG Home Med (Home Medication) (Medroxyprogesterone Acetate (Provera) 1 TAB) DAILY PO 09/06/25 09:00 10/06/25 08:59 Insulin Human Regular (humuLIN R 100 UNIT/ML 3ML) 5 unit ONCE IV 08/29/25 09:30 08/29/25 09:25 DC Insulin Human Regular (humuLIN R 100 UNIT/ML 3ML) INSULIN SLIDING SCAL... ACHS SQ 08/29/25 11:30 09/28/25 11:29 09/10/25 20:29 2 UNIT Insulin Human Regular 100 unit/ Sodium Chloride 101 ml @ 0 mls/hr PROTOCOL IV 08/29/25 12:30 08/29/25 16:05 DC Lactated Ringer's 1,000 ml @ 100 mls/hr Q10H IV 09/06/25 00:00 09/06/25 18:44 DC 09/06/25 08:35 100 MLS/HR Lactulose (Constulose 20gm/ 30ml Udcup) 20 gm BID PO 09/05/25 21:00 10/01/25 13:59 09/11/25 08:16 20 GM Lactulose (Constulose 20gm/ 30ml Udcup) 20 gm TID PO 09/01/25 14:00 09/05/25 10:44 DC 09/05/25 08:06 20 GM Magnesium Sulfate 50 ml @ 0 mls/hr PROTOCOL IV 08/29/25 12:30 08/29/25 16:05 DC Magnesium Sulfate 50 ml @ 0 mls/hr PROTOCOL IV 08/30/25 10:00 09/29/25 09:59 09/08/25 04:26 25 MLS/HR Magnesium Sulfate 50 ml @ 0 mls/hr PROTOCOL IV 09/02/25 13:30 09/02/25 13:04 DC Magnesium Sulfate 50 ml @ 0 mls/hr PROTOCOL IV 09/03/25 08:00 09/03/25 07:43 DC Meropenem (Merrem 500mg) 500 mg Q24H IVPB 08/29/25 10:00 08/31/25 09:59 DC 08/30/25 09:46 500 MG Meropenem (Merrem 500mg) 500 mg Q24H IVPB 08/31/25 23:30 09/10/25 02:29 DC 09/09/25 23:40 500 MG Midodrine (PROAMatine 5 MG TABLET) 5 mg BID PO 09/10/25 09:00 09/11/25 07:21 DC 09/10/25 21:42 5 MG Midodrine (PROAMatine 5 MG TABLET) 5 mg DAILY20 PO 09/11/25 20:00 09/12/25 09:00 Midodrine (PROAMatine 5 MG TABLET) 5 mg TID PO 09/08/25 21:00 09/10/25 08:05 DC 09/09/25 15:24 5 MG Midodrine (PROAMatine 5 MG TABLET) 10 mg BID PO 09/01/25 09:00 08/31/25 18:36 DC Midodrine (PROAMatine 5 MG TABLET) 10 mg TID PO 09/01/25 09:00 09/08/25 17:20 DC 09/08/25 16:16 10 MG Mirtazapine (REMeron 15 MG TAB) 7.5 mg HS PO 09/09/25 21:00 10/09/25 20:59 09/10/25 20:24 7.5 MG Norepinephrine Bitartrate 32 mg/ Sodium Chloride 250 ml @ 0 mls/hr Q0M STAT IV 08/29/25 21:01 08/29/25 21:07 DC 08/29/25 21:13 0 MLS/HR Octreotide Acetate 1250 mcg/ Sodium Chloride 250 ml @ 0 mls/hr PROTOCOL IV 08/29/25 08:30 09/01/25 10:32 DC 08/31/25 10:18 5 MLS/HR Pantoprazole Sodium (PROTonix 40MG INJ) 40 mg BID IVP 09/01/25 21:00 09/03/25 14:32 DC 09/03/25 09:16 40 MG Pantoprazole Sodium (PROTonix 40MG INJ) 40 mg BID IVP 09/06/25 09:00 10/06/25 08:59 09/11/25 08:16 40 MG Pantoprazole Sodium (PROTonix 40MG TAB) 40 mg DAILY PO 09/04/25 09:00 09/06/25 00:03 DC 09/05/25 08:06 40 MG Pantoprazole Sodium 80 mg/ Sodium Chloride 100 ml @ 10 mls/hr Q10H IV 08/29/25 08:30 09/01/25 10:32 DC 09/01/25 05:50 10 MLS/HR Pharmacy Profile Note (Pharmacy Communication) 1 each ONCE [facility] 08/29/25 09:30 08/29/25 09:35 DC Pharmacy Profile Note (Pharmacy Communication) 1 each ONCE MISC 08/31/25 23:30 08/31/25 23:17 DC Psyllium Hydrophilic Mucilloid (Metamucil) 1 tbs TID PO 09/04/25 14:00 10/04/25 13:59 09/11/25 08:17 1 TBS Sodium Bicarbonate 150 meq/Dextrose 1,150 ml @ 125 mls/hr Q9H12M IVP 08/29/25 10:00 08/30/25 10:12 DC 08/30/25 08:07 125 MLS/HR Sodium Bicarbonate (Sodium Bicarbonate) 1,300 mg QID PO 09/10/25 17:00 10/10/25 16:59 09/11/25 08:16 1,300 MG Sodium Bicarbonate (Sodium Bicarbonate) 1,300 mg TID PO 09/07/25 14:00 09/08/25 18:00 DC 09/08/25 16:15 1,300 MG Sodium Bicarbonate (Sodium Bicarbonate) 1,300 mg TID PO 09/09/25 09:00 09/10/25 12:00 DC 09/10/25 10:31 1,300 MG Sodium Chloride 250 ml @ 0 mls/hr AD IV 08/29/25 17:30 09/28/25 17:29 Sodium Chloride 1,000 ml @ 0 mls/hr Q0M IV 08/29/25 16:00 08/29/25 16:03 DC Sodium Chloride 1,000 ml @ 0 mls/hr Q0M IV 08/29/25 16:00 09/01/25 08:01 DC 08/29/25 16:10 500 MLS/HR Sodium Chloride 1,000 ml @ 125 mls/hr Q8H IV 08/29/25 09:30 08/29/25 09:57 DC Sodium Chloride 1,000 ml @ 150 mls/hr Q6H40M IV 08/29/25 18:30 09/01/25 09:29 DC 08/31/25 16:16 150 MLS/HR Sodium Chloride 1,000 ml @ 200 mls/hr PROTOCOL IV 08/29/25 12:30 08/29/25 16:05 DC Sodium Chloride 1,000 ml @ 999 mls/hr Q1H1M IV 10/26/25 09:30 08/29/25 09:06 DC Thiamine HCl (Vitamin B-1) 200 mg Q12H IVP 08/29/25 09:30 09/02/25 09:30 DC 09/02/25 08:56 200 MG Vitamin B Complex (Vitamin B-12) 1,000 mcg DAILY PO 09/08/25 09:00 10/08/25 08:59 09/11/25 08:16 1,000 MCG LABORATORY: [ ] Hematology Labs: Test 09/11/25 04:50 09/10/25 04:59 Range/Units White Blood Count 4.7 #L 4.8-10.8 K/uL Red Blood Count 3.08 L 4.00-5.50 MIL/uL Hemoglobin 9.6 L 12.0-16.0 g/dL Hematocrit 29.3 L 36-48 % Mean Corpuscular Volume 95.1 79-99 fL Mean Corpuscular Hemoglobin 31.2 27.0-33.0 pg Mean Corpuscular Hemoglobin Concent 32.8 32.0-36.0 g/dL Red Cell Distribution Width 18.6 H 11.0-15.5 % Platelet Count 202 130-400 K/uL Mean Platelet Volume 9.8 7.5-10.5 fL Nucleated Red Blood Cells 0.0 0.0-0.19 % Immature Granulocyte % (Auto) 0.6 0-1 % Neutrophils (%) (Auto) 55.7 40.0-77.0 % Lymphocytes (%) (Auto) 28.2 21.0-51.0 % Monocytes (%) (Auto) 10.8 3.0-13.0 % Eosinophils (%) (Auto) 4.1 0.0-8.0 % Basophils (%) (Auto) 0.6 0.0-5.0 % Neutrophils # (Auto) 2.0 1.8-7.7 K/uL Lymphocytes # (Auto) 1.0 1.0-4.8 K/uL Monocytes # (Auto) 0.4 0.1-1.0 K/uL Eosinophils # (Auto) 0.15 0.00-0.70 K/uL Basophils # (Auto) 0.02 0.00-0.20 K/uL Absolute Immature Granulocyte (auto 0.02 0-1 K/uL Chemistry Labs: Test 09/11/25 04:50 09/11/25 04:34 09/10/25 08:16 09/10/25 04:59 Range/Units Sodium Level 135 L 136-145 mmol/L Potassium Level 4.0 3.5-5.1 mmol/L Chloride Level 106 101-111 mmol/L Carbon Dioxide Level 21 21-32 mmol/L Blood Urea Nitrogen 12 7-18 mg/dL Creatinine 0.9 0.5-1.0 mg/dL Glomerular Filtration Rate Calc 75 >90 mL/min Random Glucose 101 70-105 mg/dL Total Calcium 8.5 8.5-10.1 mg/dL Whole Blood Glucose 92 70-110 MG/DL Ammonia 34 H 11-32 umol/L Total Bilirubin 0.5 0.2-1.0 mg/dL Aspartate Amino Transf (AST/SGOT) 50 H 10-37 U/L Alanine Aminotransferase (ALT/SGPT) 25 12-78 U/L Alkaline Phosphatase 116 50-136 U/L Total Protein 6.1 6.0-8.3 g/dL Albumin 2.3 L 3.5-5.0 g/dL DIAGNOSTICS / RADIOLOGY: [place] [address] IMAGING REPORT Signed PATIENT: DALLAS BUCHANAN MR#: [id number] : 1970 SEX: F AGE: 55 LOCATION: [facility] ORDER 2300 STATUS: ADM IN REPORT#: [id number] SERVICE 0600 REASON: EVALUATE LUQ PIGRTAIL FOR POSSIBLE REMOVAL ORDERING PHYSICIAN: FE BRODY MD PROCEDURE: ABDO WO - CT ABDOMEN W/O CONTRAST EXAM: CT ABDOMEN WITHOUT INTRAVENOUS CONTRAST Technique: Multislice helical computed tomography from the diaphragms through the inguinal region with thin-section axial images and coronal/sagittal reformations; dose reduction applied per ALARA. CTDIvol 6.5 mGy; DLP 204.50 mGy???cm. Contrast: No intravenous contrast administered. Clinical Information: Evaluate left upper-quadrant pigtail catheter for possible removal. Comparison: CT abdomen without contrast 11/03 00:31 EST Findings: Lung bases: Residual trace left pleural effusion with adjacent atelectasis; previously described calcified right lower-lobe pulmonary nodule is not visualized on this limited abdominal coverage. Liver: Nodular hepatic contour consistent with cirrhosis; no focal hepatic lesion identified on this noncontrast study. Gallbladder and biliary tree: Multiple punctate calcifications along the gallbladder wall; no biliary ductal dilatation. Pancreas and spleen: Stable perisplenic fluid collection with an indwelling drainage catheter and adjacent mild fat stranding; pancreatic contour and attenuation are unremarkable. Adrenal glands: Unremarkable bilaterally. Kidneys and ureters: Normal size and morphology; no hydronephrosis or nephrolithiasis. Stomach and bowel: Stomach distended with food residue; right lumbar ileostomy with stable postsurgical bowel changes; no bowel obstruction identified. Peritoneum and mesentery: Stable mild mesenteric edema; interval resolution of the previously noted minimal free fluid along the greater curvature of the stomach; no new free fluid or free intraperitoneal air. Lymph nodes: No pathologic abdominopelvic lymphadenopathy. Vasculature: No abdominal aortic aneurysm. Abdominal wall/soft tissues: No focal collection aside from the described perisplenic drain. Osseous structures: Multilevel mild spondylosis; no acute osseous abnormality. Impression: * Stable perisplenic fluid collection with an indwelling drainage catheter and mild adjacent fat stranding???correlate with drain output, clinical status, and inflammatory markers to determine readiness for catheter removal; interval imaging or catheter study may be helpful if uncertainty persists. * Cirrhotic liver morphology. Recommend clinical and laboratory correlation and hepatology follow-up if not already established. * Gallbladder wall calcifications (punctate pattern) without biliary dilatation???correlate clinically; consider surgical consultation if porcelain gallbladder is suspected based on pattern and extent of calcification. * Residual trace left pleural effusion with adjacent atelectasis; stomach distention with food residue; right lumbar ileostomy with expected postsurgical changes; no new abdominopelvic free fluid or free air. * Compared with 09/06/2025 00:31 EST, the perisplenic collection is unchanged with the drain remaining in place, the previously described minimal perigastric free fluid has resolved, and the prior calcified right lower-lobe nodule is not visualized on this limited abdominal scan; otherwise, no significant interval change. /[place] DICTATED BY: EDWIGE LEDESMA MD DATE: 09/09/251409 ELECTRONICALLY SIGNED BY: EDWIGE LEDESMA MD DATE: 09/09/251409 PATIENT: DALLAS BUCHANAN MR#: [id number] : 1970 SEX: F AGE: 55 LOCATION: [facility] ORDER 2351 STATUS: ADM IN REPORT#: [id number] SERVICE 2346 REASON: abdiominal pain ORDERING PHYSICIAN: CYNTHIA ALEXANDER PROCEDURE: ABDO WO - CT ABDOMEN W/O CONTRAST EXAMINATION CT Abdomen Without IV Contrast CLINICAL HISTORY Patient presents with abdominal pain. TECHNIQUE Axial computed tomography images of the abdomen were obtained without intravenous contrast. CONTRAST No IV contrast administered. COMPARISON 09/01/2025. FINDINGS: LUNG BASES: Residual trace left pleural effusion with adjacent atelectasis. Interval resolution of previously described mild right pleural effusion. Stable calcified nodule in the right lower lobe. LIVER: Nodular hepatic contour consistent with cirrhosis. GALLBLADDER AND BILE DUCTS: Multiple punctate calcifications in the gallbladder wall. No biliary ductal dilatation. PANCREAS AND SPLEEN: Stable perisplenic fluid collection with drainage catheter in situ and adjacent fat stranding. ADRENAL GLANDS: Unremarkable. KIDNEYS AND URETERS: Normal in size and morphology. No hydronephrosis or nephrolithiasis. STOMACH AND BOWEL: Stomach distended with food residue. Right lumbar ileostomy with stable postsurgical bowel changes. Uncomplicated colonic diverticula. A component of mild constipation. PERITONEUM: Stable mild mesenteric edema. Significant interval resolution of the previously demonstrated minimal free fluid along the greater curvature of the stomach. No new free fluid or free air. LYMPH NODES: No significant lymphadenopathy. VASCULATURE: No abdominal aortic aneurysm. BONES: Multilevel mild spondylosis. IMPRESSION: Nodular cirrhotic liver. Stable perisplenic fluid collection with drainage catheter in situ and adjacent fat stranding. Right lumbar ileostomy with stable postsurgical bowel changes. Residual trace left pleural effusion with adjacent atelectasis. Interval resolution of the right pleural effusion. Stable calcified right lower lobe pulmonary nodule. Stomach distended with food residue. Uncomplicated colonic diverticula with mild constipation. Stable mild mesenteric edema with interval resolution of previously described minimal free fluid. Multiple punctate calcifications in the gallbladder wall, likely cholesterolosis. /[place] DICTATED BY: ELDON MILLER Jr., MD DATE: 09/06/25233 ELECTRONICALLY SIGNED BY: ELDON MILLER Jr., MD DATE: 09/06/25233 PATIENT: DALLAS BUCHANAN MR#: [id number] : 1970 SEX: F AGE: 55 LOCATION: [facility] ORDER 1319 STATUS: ADM IN REPORT#: [id number] SERVICE 15 REASON: R/o DVT versus SVT ORDERING PHYSICIAN: SONJA PERALTA MD PROCEDURE: VENOUS UNI - US VENOUS DOPPLER UNILATERAL ADDENDUM REPORT ADDENDUM: Results were shared by telephone at 10:59am on 09-06-25 and acknowledged by Patients Nurse Ms. Britt Robert /[place] EXAMINATION: SPECTRAL DOPPLER ULTRASOUND EXAMINATION OF THE RIGHT UPPER EXTREMITY VEINS. CLINICAL HISTORY: To rule out DVT. COMPARISON: None. TECHNIQUE: Grayscale, color, and spectral Doppler images of the right upper extremity veins are submitted. FINDINGS: The internal jugular, subclavian, basilic, and brachial veins are patent. These veins show normal flow with physiological changes of phasicity and augmentation. The right axillary vein and cephalic veins are non-compressible and there is no flow on augmentation. IMPRESSION: Acute deep vein thrombosis in the right axillary vein. Right cephalic vein thrombosis. There is no deep vein thrombosis in the remainder of the right upper extmreiyt, /[place] DICTATED BY: TOBI LEAHY MD DATE: 09/06/251154 ELECTRONICALLY SIGNED BY: DATE: EXAMINATION: SPECTRAL DOPPLER ULTRASOUND EXAMINATION OF THE RIGHT UPPER EXTREMITY VEINS. CLINICAL HISTORY: To rule out DVT. COMPARISON: None. TECHNIQUE: Grayscale, color, and spectral Doppler images of the right upper extremity veins are submitted. FINDINGS: The internal jugular, subclavian, basilic, and brachial veins are patent. These veins show normal flow with physiological changes of phasicity and augmentation. The right axillary vein and cephalic veins are non-compressible and there is no flow on augmentation. IMPRESSION: Acute deep vein thrombosis in the right axillary vein. Right cephalic vein thrombosis. There is no deep vein thrombosis in the remainder of the right upper extmreiyt, /[place] DICTATED BY: TOBI LEAHY MD DATE: 09/06/25941 ELECTRONICALLY SIGNED BY: TOBI LEAHY MD DATE: 09/06/25941 PATIENT: DALLAS BUCHANAN MR#: [id number] : 1970 SEX: F AGE: 55 LOCATION: [facility] ORDER 230 STATUS: ADM IN REPORT#: [id number] SERVICE 0600 REASON: hypoxic ORDERING PHYSICIAN: LOBO RICKS PROCEDURE: CXR1VW - CHEST 1VW EXAM: CR Chest, 1 View (Portable, Supine). CLINICAL HISTORY: Chest pain. COMPARISON: CR Chest, 2 View ??? 09/01/2025 01:13 AM EDT. FINDINGS: LUNGS: Area of haziness in left lower zone-Remained stable. Rest of the lungs are clear. No focal consolidation, pulmonary edema, or acute infiltrate. PLEURAL SPACES: No pleural effusion or pneumothorax. MEDIASTINUM: Cardiac size and mediastinal contours within normal limits. No acute osseous abnormality. LINES/DEVICES: Monitoring leads noted. No new devices identified. IMPRESSION: Area of haziness in left lower zone likely airspace opacity-Stable compared to previous radiograph. /[place] DICTATED BY: TOBI LEAHY MD DATE: 09/03/258 ELECTRONICALLY SIGNED BY: TOBI LEAHY MD DATE: 09/03/25 1138 PATIENT: DALLAS BUCHANAN MR#: [id number] : 1970 SEX: F AGE: 55 LOCATION: [facility] ORDER 1231 STATUS: ADM IN REPORT#: [id number] SERVICE 1227 REASON: EVALUATE LUQ PIGRTAIL FOR POSSIBLE REMOVAL ORDERING PHYSICIAN: SUSAN JHAVERI MD PROCEDURE: ABDO WO - CT ABDOMEN W/O CONTRAST ADDENDUM REPORT ADDENDUM: Results were shared by telephone at 11:21 pm on 09-01-25 and acknowledged by Patient's Nurse Jabier Bangura. /[place] EXAM: CT ABDOMEN WITHOUT INTRAVENOUS CONTRAST Technique: Multislice helical computed tomography of the abdomen was performed from the diaphragms through the iliac crests with axial images and coronal/sagittal reformations. Dose optimization per ALARA. Contrast: No intravenous contrast administered. Contrast Impression: Noncontrast technique limits assessment of enhancement-dependent pathology and characterization of fluid collections. Clinical Information: Evaluation of left upper quadrant pigtail drain for possible removal. Comparison: CT abdomen/pelvis without contrast dated 08/29/2025. Findings: Lung bases: Interval development of small bilateral pleural effusions with dependent subsegmental atelectasis in the lower lobes. Previously described tiny calcified nodules are not conspicuous on the current noncontrast images. Liver: Morphologic features of cirrhosis are unchanged. No focal hepatic lesion identified on this noncontrast study. Gallbladder and bile ducts: Decompressed gallbladder with a cholecystostomy tube in place, stable. No biliary ductal dilatation. Pancreas: Normal contour without peripancreatic inflammatory change. Spleen: Infrasplenic fluid collection adjacent to the splenic inferior pole measuring approximately 2.7 ??? 3.5 ??? 6.4 cm (previously 2.7 ??? 2.2 ??? 5.1 cm), with a pigtail drainage catheter in situ and mild adjacent fat stranding. Adrenal glands: Normal morphology bilaterally. Kidneys and ureters: Kidneys within normal size and contour; no hydronephrosis or hydroureter; no nephrolithiasis. Urinary bladder: Dueñas catheter in place with small intraluminal gas foci, likely iatrogenic; bladder otherwise unremarkable. Stomach and bowel: Right iliac fossa ileostomy defect ( 2.4 cm) and postoperative bowel changes, stable. No evidence of bowel obstruction, enteritis, or colitis. Peritoneum and mesentery: New minimal free fluid predominantly along the greater curvature of the stomach with mild mesenteric edema (anasarca). No free intraperitoneal air. Lymph nodes: No pathologic abdominopelvic lymphadenopathy. Vasculature: Abdominal aorta normal in caliber. Abdominal wall/soft tissues: Expected postoperative changes at the ostomy site; otherwise unremarkable. Osseous structures: No acute or aggressive osseous abnormality; mild degenerative changes in the visualized spine. Impression: * Infrasplenic collection with indwelling pigtail drain has increased in size compared with 08/29/2025 (now 2.7 ??? 3.5 ??? 6.4 cm from 2.7 ??? 2.2 ??? 5.1 cm) with mild surrounding fat stranding???ongoing collection persists. Drain removal is not advised at this time based on interval enlargement; recommend interventional radiology review for catheter position/patency, consideration of catheter upsizing or repositioning, and correlation with output and culture. * New small bilateral pleural effusions with dependent basilar atelectasis. Monitor clinically; consider diuresis or follow-up imaging as indicated. * Cirrhotic hepatic morphology, unchanged. * Decompressed gallbladder with cholecystostomy tube in place, stable; no biliary ductal dilatation. * Minimal ascites and mild mesenteric edema (anasarca), new from prior. * Dueñas catheter with small intravesical gas, likely iatrogenic. * No bowel obstruction, hydronephrosis, or nephrolithiasis identified. /[place] DICTATED BY: EDWIGE LEDESMA MD DATE: 09/01/25 563 ELECTRONICALLY SIGNED BY: DATE: EXAM: CT ABDOMEN WITHOUT INTRAVENOUS CONTRAST Technique: Multislice helical computed tomography of the abdomen was performed from the diaphragms through the iliac crests with axial images and coronal/sagittal reformations. Dose optimization per ALARA. Contrast: No intravenous contrast administered. Contrast Impression: Noncontrast technique limits assessment of enhancement-dependent pathology and characterization of fluid collections. Clinical Information: Evaluation of left upper quadrant pigtail drain for possible removal. Comparison: CT abdomen/pelvis without contrast dated 08/29/2025. Findings: Lung bases: Interval development of small bilateral pleural effusions with dependent subsegmental atelectasis in the lower lobes. Previously described tiny calcified nodules are not conspicuous on the current noncontrast images. Liver: Morphologic features of cirrhosis are unchanged. No focal hepatic lesion identified on this noncontrast study. Gallbladder and bile ducts: Decompressed gallbladder with a cholecystostomy tube in place, stable. No biliary ductal dilatation. Pancreas: Normal contour without peripancreatic inflammatory change. Spleen: Infrasplenic fluid collection adjacent to the splenic inferior pole measuring approximately 2.7 ??? 3.5 ??? 6.4 cm (previously 2.7 ??? 2.2 ??? 5.1 cm), with a pigtail drainage catheter in situ and mild adjacent fat stranding. Adrenal glands: Normal morphology bilaterally. Kidneys and ureters: Kidneys within normal size and contour; no hydronephrosis or hydroureter; no nephrolithiasis. Urinary bladder: Dueñas catheter in place with small intraluminal gas foci, likely iatrogenic; bladder otherwise unremarkable. Stomach and bowel: Right iliac fossa ileostomy defect ( 2.4 cm) and postoperative bowel changes, stable. No evidence of bowel obstruction, enteritis, or colitis. Peritoneum and mesentery: New minimal free fluid predominantly along the greater curvature of the stomach with mild mesenteric edema (anasarca). No free intraperitoneal air. Lymph nodes: No pathologic abdominopelvic lymphadenopathy. Vasculature: Abdominal aorta normal in caliber. Abdominal wall/soft tissues: Expected postoperative changes at the ostomy site; otherwise unremarkable. Osseous structures: No acute or aggressive osseous abnormality; mild degenerative changes in the visualized spine. Impression: * Infrasplenic collection with indwelling pigtail drain has increased in size compared with 08/29/2025 (now 2.7 ??? 3.5 ??? 6.4 cm from 2.7 ??? 2.2 ??? 5.1 cm) with mild surrounding fat stranding???ongoing collection persists. Drain removal is not advised at this time based on interval enlargement; recommend interventional radiology review for catheter position/patency, consideration of catheter upsizing or repositioning, and correlation with output and culture. * New small bilateral pleural effusions with dependent basilar atelectasis. Monitor clinically; consider diuresis or follow-up imaging as indicated. * Cirrhotic hepatic morphology, unchanged. * Decompressed gallbladder with cholecystostomy tube in place, stable; no biliary ductal dilatation. * Minimal ascites and mild mesenteric edema (anasarca), new from prior. * Dueñas catheter with small intravesical gas, likely iatrogenic. * No bowel obstruction, hydronephrosis, or nephrolithiasis identified. /[place] DICTATED BY: EDWIGE LEDESMA MD DATE: 09/01/252258 ELECTRONICALLY SIGNED BY: EDWIGE LEDESMA MD DATE: 09/01/252258 PATIENT: DALLAS BUCHANAN MR#: [id number] : 1970 SEX: F AGE: 55 LOCATION: 2CV ORDER 1130 STATUS: ADM IN REPORT#: [id number] SERVICE 1127 REASON: Left lower lung lobe opacities ORDERING PHYSICIAN: SONJA PERALTA MD PROCEDURE: CHEST WO - CT CHEST W/O CONTRAST EXAM: CT CHEST WITHOUT INTRAVENOUS CONTRAST Technique: Helical computed tomography of the chest from thoracic inlet through the upper abdomen without intravenous contrast, with axial images and coronal/sagittal reformations. Dose optimization performed in accordance with ALARA. Clinical Information: Left lower lung lobe opacities. Comparison: Chest radiograph dated 09/01/2025 at 05:46 EDT. Findings: Soft tissues: Unremarkable. Lungs and large airways: Central airways are patent. Subsegmental consolidation in the posterior segments of both lower lobes. Additional subsegmental consolidation in the superior segment of the left upper lobe. Linear atelectatic bands in the superior lingular segment and posterior segment of the left upper lobe. A calcified pulmonary nodule measures 5 mm in the right lower lobe (series 3, image 29). Pleura: Minimal bilateral pleural effusions. No pneumothorax. Heart and pericardium: Cardiac size within normal limits. No pericardial effusion. Aorta: Normal course and caliber on this noncontrast study. Pulmonary arteries: Evaluation limited without contrast; no large central filling defect is seen on this noncontrast exam. Lymph nodes: No pathologically enlarged mediastinal or hilar lymph nodes. Mediastinum and toya: No mass identified. Chest wall and lower neck: No acute abnormality. Bones/joints: No acute osseous abnormality. Upper abdomen: Visualized portions without acute abnormality; detailed abdominal findings are reported separately. Impression: * Subsegmental consolidation in the posterior segments of both lower lobes and in the superior segment of the left upper lobe with minimal bilateral pleural effusions???most compatible with multifocal atelectasis versus infection/aspiration in the appropriate clinical context. Recommend clinical correlation and short-interval follow-up chest imaging to document resolution. * Benign-appearing calcified pulmonary nodule in the right lower lobe measuring 5 mm (series 3, image 29), consistent with a granuloma; no additional suspicious nodules identified. * No pneumothorax or acute cardiomediastinal abnormality identified on this noncontrast examination. /[place] DICTATED BY: EDWIGE LEDESMA MD DATE: 09/01/252255 ELECTRONICALLY SIGNED BY: EDWIGE LEDESMA MD DATE: 09/01/252255 PATIENT: DALLAS BUCHANAN MR#: [id number] : 1970 SEX: F AGE: 55 LOCATION: 2CV ORDER 99 STATUS: ADM IN REPORT#: [id number] SERVICE 0600 REASON: hypoxic ORDERING PHYSICIAN: LOBO RICKS PROCEDURE: CXR1VW - CHEST 1VW EXAM: CR Chest, 1 View (Portable, Supine). CLINICAL HISTORY: Chest pain. COMPARISON: CR Chest, 2 View ??? 08/31/2025 01:13 AM EDT. FINDINGS: LUNGS: Mild prominence of bronchovascular markings in bilateral lower zone. Area of haziness in left lower zone. Lungs are clear. No focal consolidation, pulmonary edema, or acute infiltrate. PLEURAL SPACES: No pleural effusion or pneumothorax. MEDIASTINUM: Cardiac size and mediastinal contours within normal limits. Right internal jugular central venous catheter remains in similar position with the tip projecting over the distal superior vena cava, unchanged from prior. BONES: No acute osseous abnormality. LINES/DEVICES: Right IJ central venous catheter as described. Monitoring leads noted. No new devices identified. IMPRESSION: * Stable position of right IJ central venous catheter with tip at distal SVC. * Area of haziness in left lower zone likely airspace opacity-New finding compared to previous radiograph. * Mild prominence of bronchovascular markings in bilateral lower zone-New finding compared to previous radiograph. Signed By: EDWIGE LEDESMA M.D. /[place] DICTATED BY: TOBI LEAHY MD DATE: 09/01/251518 ELECTRONICALLY SIGNED BY: TOBI LEAHY MD DATE: 09/01/251518 PATIENT: DALLAS BUCHANAN MR#: [id number] : 1970 SEX: F AGE: 55 LOCATION: 2CV ORDER 230 STATUS: ADM IN REPORT#: [id number] SERVICE 0600 REASON: hypoxic ORDERING PHYSICIAN: LOBO RICKS PROCEDURE: CXR1VW - CHEST 1VW EXAM: CR Chest, 1 View (Portable, Supine). CLINICAL HISTORY: Chest pain. COMPARISON: CR Chest, 2 View ??? 08/30/2025 01:13 AM EDT. FINDINGS: LUNGS: Lungs are clear. No focal consolidation, pulmonary edema, or acute infiltrate. PLEURAL SPACES: No pleural effusion or pneumothorax. MEDIASTINUM: Cardiac size and mediastinal contours within normal limits. Right internal jugular central venous catheter remains in similar position with the tip projecting over the distal superior vena cava, unchanged from prior. BONES: No acute osseous abnormality. LINES/DEVICES: Right IJ central venous catheter as described. Monitoring leads noted. No new devices identified. IMPRESSION: * Stable position of right IJ central venous catheter with tip at distal SVC. * No pneumothorax or acute cardiopulmonary abnormality. * No significant interval change compared with 08/30/2025 . /[place] DICTATED BY: EDWIGE LEDESMA MD DATE: 08/31/251851 ELECTRONICALLY SIGNED BY: EDWIGE LEDESMA MD DATE: 08/31/251851 PATIENT: DALLAS BUCHANAN MR#: [id number] : 1970 SEX: F AGE: 55 LOCATION: 2CV ORDER 8 STATUS: ADM IN REPORT#: [id number] SERVICE 170 REASON: severe renal failure ORDERING PHYSICIAN: BRADEN CONTRERAS MD PROCEDURE: RENAL - US RENAL SONOGRAM EXAM: RENAL AND URINARY BLADDER ULTRASOUND Technique: Grayscale and color Doppler sonography of both kidneys and the urinary bladder was performed. Study quality is adequate. Evaluation of the bladder and ureteral jets is limited by decompression from an indwelling catheter. Clinical Information: Severe renal failure. Findings: Right kidney: Measures 10.3 ??? 5.3 ??? 4.2 centimeters. Renal cortical thickness and echogenicity are within expected limits for technique. No focal mass is identified. No hydronephrosis. No renal calculi. No perinephric fluid collection. Left kidney: Measures 11.0 ??? 4.8 ??? 3.2 centimeters. The renal parenchyma is diffusely increased in echogenicity relative to the adjacent liver and spleen. No focal mass is identified. No hydronephrosis. No renal calculi. No perinephric fluid collection. Urinary bladder: Decompressed with a Dueñas catheter in situ. Bladder wall measures approximately 3 millimeters, which may appear relatively thick due to underdistention. No intraluminal mass or debris is identified on the limited evaluation. Impression: * Left kidney demonstrates increased parenchymal echogenicity, a nonspecific finding commonly associated with medical renal disease in the setting of renal failure. * No hydronephrosis or renal calculi identified bilaterally. * Decompressed urinary bladder with Dueñas catheter in place; apparent wall thickening likely related to underdistention. /[place] DICTATED BY: EDWIGE LEDESMA MD DATE: 08/29/252248 ELECTRONICALLY SIGNED BY: EDWIGE LEDESMA MD DATE: 08/29/252248 PATIENT: DALLAS BUCHANAN MR#: [id number] : 1970 SEX: F AGE: 55 LOCATION: 2CV ORDER 1540 STATUS: ADM IN REPORT#: [id number] SERVICE 1539 REASON: central line placement ORDERING PHYSICIAN: LOBO RICKS PROCEDURE: CXR1VW - CHEST 1VW EXAM: CR Chest, 2 View. CLINICAL HISTORY: central line placement COMPARISON: None provided. FINDINGS: Right IJ central venous catheter tip projects at the distal SVC. Right peripheral line overlies expected location of the right axillary vessels. LUNGS: The lungs show no infiltrate or other acute finding. Mild left basilar atelectasis. PLEURAL SPACES: No pleural effusion or pneumothorax. MEDIASTINUM: Cardiac size and mediastinal contours within normal limits. BONES: No aggressive appearing osseous lesion seen. Pigtail drainage catheter overlies the right upper quadrant. IMPRESSION: 1. Right IJ central venous catheter tip appropriately positioned in the distal SVC. 2. No acute cardiopulmonary findings. /[place] DICTATED BY: ELDON MILLER Jr., MD DATE: 08/29/251744 ELECTRONICALLY SIGNED BY: ELDON MILLER Jr., MD DATE: 08/29/251744 PATIENT: DALLAS BUCHANAN MR#: [id number] : 1970 SEX: F AGE: 55 LOCATION: 2CV ORDER 9 STATUS: ADM IN REPORT#: [id number] SERVICE 7 REASON: coffee ground emesis, hx of abdominal drain, nausea, vomiting, hx of cirrho ORDERING PHYSICIAN: BRADEN CONTRERAS MD PROCEDURE: ABD PEL WO - CT ABDOMEN/PELVIS W/O CONTRAST EXAM: CT Abdomen and Pelvis Without IV contrast CLINICAL HISTORY: coffee ground emesis, hx of abdominal drain, nausea, vomiting, hx of cirrho TECHNIQUE: Axial computed tomography images of the abdomen and pelvis without intravenous contrast. CONTRAST: No IV contrast. COMPARISON: Study dated 08/23/25. FINDINGS: LUNG BASES: Tiny calcified nodules in the posterior basal segment of the right lower lobe. There is mild dependent airspace disease within the bilateral lower lobes that is presumed to reflect atelectasis. No pleural effusions are seen. LIVER: There is cirrhotic hepatic morphology. Several small esophageal varices are noted. GALLBLADDER AND BILE DUCTS: The gallbladder is decompressed with a cholecystostomy tube in place. No biliary ductal dilatation is evident. PANCREAS: Unremarkable. SPLEEN: 2.7 x 2.2 x 5.1 cm infrasplenic collection with adjacent fat stranding and pigtail tube in place. ADRENAL GLANDS: Unremarkable. KIDNEYS, URETERS, AND BLADDER: The kidneys appear within normal limits. There is no hydronephrosis or hydroureter. No urinary calculi are seen. Dueñas's bulb in the urinary bladder with few air foci. STOMACH AND BOWEL: 2.4 cm ileostomy defect in the right iliac fossa and postoperative changes in the bowel loops. No evidence of bowel obstruction. No evidence suggesting enteritis or colitis. APPENDIX: No evidence of acute appendicitis on CT examination. PERITONEUM: No free fluid. No free air. LYMPH NODES: No lymphadenopathy is evident. REPRODUCTIVE: Unremarkable as visualized. VASCULATURE: No evidence of abdominal aortic aneurysm. BONES: No aggressive appearing osseous lesion. No acute osseous pathology evident. Mild degenerative changes in the spine. IMPRESSION: 1. Cirrhotic hepatic morphology. Several small esophageal varices are noted. 2. 2.7 x 2.2 x 5.1 cm infrasplenic collection with adjacent fat stranding and pigtail tube in place. 3. Cholecystostomy tube in decompressed gallbladder. 4. Ileostomy in right iliac fossa with postoperative changes. /[place] DICTATED BY: ELDON MILLER Jr., MD DATE: 08/29/251619 ELECTRONICALLY SIGNED BY: ELDON MILLER Jr., MD DATE: 08/29/251619 PATIENT: DALLAS BUCHANAN MR#: [id number] : 1970 SEX: F AGE: 55 LOCATION: EDHIP ORDER 0807 STATUS: ADM IN REPORT#: [id number] SERVICE 5 REASON: sob ORDERING PHYSICIAN: MILAD WYNN MD PROCEDURE: CXR1VW - CHEST 1VW EXAM: CR Chest, 1 View. CLINICAL HISTORY: sob COMPARISON: None provided. FINDINGS: LUNGS: There is no mass, infiltrate, or acute pulmonary abnormality. Mild left basilar atelectasis and/or parenchymal scarring. PLEURAL SPACES: No evidence of pleural effusion or pneumothorax. MEDIASTINUM: Cardiac size and mediastinal contours within normal limits. BONES: No aggressive appearing osseous lesion seen. IMPRESSION: No acute cardiopulmonary pathology is evident. /[place] DICTATED BY: ELDON MILLER Jr., MD DATE: 08/29/251103 ELECTRONICALLY SIGNED BY: ELDON MILLER JDATE: 08/29/251103 ASSESSMENT: Severe hyperkalemia Anemia Acute renal failure Hyponatremia Acute upper GI bleeding- Hematemesis, dark output from ileostomy bag, POA, Impr oving Acute DVT of right axillary vein and right cephalic vein High output from ileostomy bag, not POA Hemorrhagic shock versus hypovolemic shock, POA, Resolved Hypovolemic hypochloremic hyponatremia, POA, Resolved Severe hyperkalemia, POA, Resolved Hyperammonemia, POA, Improving Lactic acidosis, POA, Resolved Hyperphosphatemia, POA, Resolved Starvation Ketoacidosis, POA Rule out occult sepsis, POA Recent extended hospitalization in [facility], 07/20/2025- 08/25/2025 for sepsis, acute abdomen, POA Severe Dehydration, POA, Improving History of esophageal varices, POA Acute Decompensated liver cirrhosis, POA Hx of acute cholecystitis, s/p cholecystostomy tube placement on 08/02/2025. Perisplenic abscess, s/p CT-guided drainage placement on 08/09/2025. 2.7 x 2.2 x 5.1 cm infrasplenic collection History of gastritis, POA Hx of Generalized peritonitis with ESBL E coli infection, POA Moderate Protein calorie malnutrition POA History of bilious peritonitis with small colonic anastomosis perforation s/p diagnostic laparoscopy, abdominal washout, ileostomy creation by Dr. Jhaveri, 07/21/2025 Hx of DM II, POA Recent colovesical fistula repair with sigmoid colon resection and anastomosis on PLAN: Labs, diagnostic, radiologic exams reviewed and interpreted by myself and supervising physician. We have reviewed external records in detail Pending EGD Require close monitoring of renal function and electrolytes Order CBC, CMP, and electrolytes in am Continue with antibiotics BiPAP as necessary, for respiratory distress Monitor blood pressure adjust medication doses as needed Avoid hypotensive episodes May use Dilaudid 0.5 mg IV every 6 hours as needed for severe pain Monitor blood sugars Strict intake, output, and daily weight should be monitored Please renally adjust medications Avoid nephrotoxic and nonsteroidal drugs Avoid contrast if possible Will continue to monitor renal function, anemia, electrolytes Treatment plan discussed with patient Questions were answered We have discussed with the other team physicians in detail about the care plan We will continue to monitor the patient closely ATTESTATION BY PHYSICIAN I have seen and examined the patient. I reviewed the documentation, medical decision making, and treatment plan as noted by the mid-level provider above. I agree with the findings and plan of care. CIELO PORTILLO MD, [facility] Sep 11, 2025 11:50
--- NOTE | 2025-09-11 15:32 | PN ---
[facility] PROGRESS NOTE Date of Service: Sep 11, 2025 Time of Service: 15:32 SUBJECTIVE: As per admission notes "50-year-old female with underlying history of type 2 diabetes mellitus, history of liver cirrhosis, prior history of esophageal varices requiring banding in May,, history of robotic sigmoid resection with takedown of colovesical fistula who was recently hospitalized in [facility] from 07/20/2025 - 08/25/2025 patient was found to have bilious peritonitis with 2 mm perforation of colonic anastomosis requiring diagnostic laparoscopy, abdominal washout and drain placement with creation of diverting loop ileostomy. Patient was hospitalized for about one month and subsequently required IR guided drain placement as well. She was just discharged from the hospital on 08/25/2025. Patient's daughter reports that patient was having nausea and vomiting with poor oral intake at home. She started to have coffee-ground emesis today and she also noticed some right streaks of blood with a coffee-ground emesis. Stool has also been dark in the ileostomy bag. Patient is having moderate intensity abdominal pain as well. She has not been taking any NSAIDs. Daughter reports that patient has been very weak since her discharge in very debilitated. Patient denies active chest pain. Denies active shortness of breath. On presentation to the hospital, patient was noted to be afebrile with T-max of 97.5 F, heart rate of 100, blood pressure of 127/91. [place] [address], hemoglobin of 16.4, platelet count of 090522. BMP was repeated twice, BMP showed sodium of 117, potassium 7.0, chloride of 88, CO2 of seven, BUN of 83, creatinine 5.0, blood glucose of 99, calcium 10.4. Blood gas showed pH of 7.28, bicarb of close to eight, CO2 of 18, lactic acid of three. Patient will be admitted to ICU. Patient is presenting with severe renal failure with hyperkalemia and severe metabolic acidosis. Patient also with concerns for upper GI bleeding with coffee-ground emesis. Patient remains critically ill consultation with Intensive Care, Nephrology, GI will be requested. We we will obtain a CT abdomen pelvis without contrast for further evaluation as well. Patient is critically ill. Plan of care was discussed with patient and daughter at bedside" 08/30/2025 Patient was seen and examined at bedside. Her blood pressure has been low, 88/54, heart rate 86. She is currently on Levophed 0.2 Mcg, octreotide, Protonix, sodium bicarbonate drip. She received 2nd hemodialysis session yesterday. As per Nephrology, she will continue to receive dialysis inpatient. Her high anion gap metabolic acidosis is improving with sodium 134, carbon dioxide 31, chloride 96. Her creatinine has trended down from 5-1.8. General surgery consult is on board and we will follow up with their recommendations. Additionally, in the light of history of liver cirrhosis with esophageal varices, her recent hematemesis will be evaluated with GI consult and possible endoscopy. We discussed this with the patient and her family members present besides. Patient is started on Merrem and blood culture, urine cultures show no growth so far. Her lactic acid has trended down from 3.1 to 2.1. 08/31/2025 Patient was seen and examined at bedside in room 214. She continues to be on Levophed 0.1 which is being weaned off. She is also on Sandostatin and Protonix drip. Patient complained of mild pain along the sides of her drain but denied any nausea or episode of vomiting since Saturday. Minimal drainage was noted. Sodium bicarb was discontinued as per Nephrology. Her lab markers have improved with sodium 141, chloride 104, bicarb 32, creatinine 1, BUN 16, ammonia 34. Her urine sodium was less than 20 consistent with prerenal CYNTHIA. We are pending blood and urine culture results. Her total output in the past24 hours has been optimal, 2069. She is on sodium chloride 150 mL/hour. We are following gastroenterology recommendations of possible upper endoscopy in the morning if patient condition remains stable. 09/01/2025 Patient was seen and examined at bedside. She is off vasopressor support and is hemodynamically stable. Her chest x-ray showed opacity in the left lower lobe and we will follow up with CT scan of chest. She is started on 2nd day of ppm today. She successfully underwent EGD which showed small, less than 5 mm, esophageal varices with scar in the lower 3rd of the esophagus. Patient was noted to have portal hypertensive gastropathy which was biopsied. Duodenum was normal during examination. Patient is receiving Merrem and her blood culture and urine cultures have shown no growth so far. Due to her elevated ammonia levels, she will be started on lactulose. We will proceed with caution with respect to normal saline as patient's BNP is elevated. 09/02/2025 The patient has been seen and examined earlier this morning during my rounding, case discussed with the RN, no acute events overnight, blood pressure 118/71, h eart rate of 56, afebrile, saturating normal on room air, CBC showing hemoglobin 8.5, hematocrit 36.8, WBC of 4.4, platelet count of 99, sodium 137, potassium 3.8, BUN of 18, creatinine 0.7, magnesium Lasix. Results of blood culture no growth after four days. Urine culture no growth. EGD reviewed, small less than 5 mm esophageal varices with scar in the lower 3rd of the esophagus. Patient with a bottle hypertensive gastropathy, status post biopsy, duodenum was normal during examination. Patient to be downgraded to the medical floor, continue banana bag, continue Protonix 40 mg IV b.i.d.. Plan for possible PEG tube placement. 09/03/2025 Patient was seen and examined at bedside. She has been advanced to GI soft bland diet which she is tolerating really well and having output in her ileostomy bag. As per surgeon, if she continues to tolerate diet, she may not require G-tube placement on discharge. Patient did not complain of any significant pain and seemed to be doing really well. Her cholecystostomy tube was removed but her splenic percutaneous tube is still in position and may require further IR intervention for repositioning due to persistent and mildly increased perisplenic fluid collection. She is receiving lactulose and her ammonia levels have gone down. Her acute renal failure continues to resolve and her vitals are also stable. No growth on urine and blood culture so far. We have shifted her from Protonix IV to p.o. as per GI recommendations. 09/04/2025 Patient was seen and examined at bedside in room 302. She has been tolerating GI soft bland diet, ileostomy output seems very high, liquid consistency and patient will be receiving fiber 3 times a day. Patient may require further IR intervention on Saturday for splenic drain reposition due to persistent and mildly increased perisplenic fluid collection. Vitals are stable, blood and urine culture shows no growth so far. 09/05/2025 Patient was seen and examined at bedside. She is tolerating GI soft bland diet, and her ileostomy output is high although liquid in consistency. We have decreased lactulose to b.i.d. from t.i.d. She continues on fiber 3 times a day as per surgery recommendations to bulk up the stool from the ileostomy in order to decrease the chances of further dehydration from high ileostomy output. Additionally, nodular swelling was appreciated in her right upper extremity which could be concerning for superficial venous thrombosis for which ultrasound Doppler of right upper extremity has been ordered. Patient is currently undergoing bladder training while being catheterized and we will proceed with Dueñas catheter removal as tolerated. 09/06/2025: Patient was seen and examined at bedside in room 302. She is tolerating GI soft bland diet and her ileostomy output has thicker consistency. Nurse reported that there was bright red blood in the ileostomy bag last night however this morning it was free from blood. Venous Doppler of the right upper extremity revealed deep vein thrombosis in right axillary vein and right cephalic vein, advice from Gastroenterology and Hematology was requested to start anticoagulation. Patient was started on Lovenox 1 mg/kg body weight as per Hematology recommendations. Patient will be continued on IV Protonix 40 mg b.i.d. 09/07/2025: Patient was seen and examined at bedside in room 302. Patient complained of generalized body pains however denied specific pain to the right arm or in abdomen. She is tolerating GI soft bland it and had to 25 mL of total output from ileostomy bag last night as per the primary nurse. During my evaluation in the morning there was no blood observed in the ileostomy bag however around 10:30 a.m. nurse reported blood in the ileostomy bag. Dr. Gonzalez recommended to continue Lovenox and bridge with apixaban 10 mg for 5 days and then transition to apixaban 5 mg for 3 months. Surgery recommended to continue current medical management and await management of DVT for potential discharge. However we will try to connect with them regarding removal of splenic drain or repositioning through IR Services. 09/08/2025: Patient was examined at bedside in room 302. Patient's family memb ers were present during the evaluation of helped us translate. Her ileostomy bag was clear. Patient attendants voiced that patient was more anxious about noticing blood in her ileostomy bag. Patient's hemoglobin and hematocrit have remained stable. Ileostomy bag has been replaced due to leakage. Patient and the family members were educated on proper care for ileostomy bag by the wound care team and was also reinforced that she needs to be on anticoagulation for venous thrombosis for preventing dislodging of clot to lungs and causing fatal pulmonary embolism. Risks and benefits were explained to the patient that patient will need anticoagulation and her hemoglobin will be monitored regularly. Was also encouraged to keep her food intake high and prevent dehydration. We will connect with surgical team for management of splenic catheter drain. 09/09/2025: Patient was examined at the bedside in room 302. Patient had no acute events over night but continues to have difficulty falling asleep and anxiety from the medical complexity. Her hemoglobin is stable 9.2 today. Patient has an abdominal binder in place with ostomy ring for better seal. Patient will undergo CT abdomen for evaluation of removal of splenic catheter drain today. We discontinued her Duloxetine and started 7.5 mg of Mirtazapine at bedtime. 09/10/2025: Patient was examined at the bedside in room 302. Patient had no acut events overnight and reports she had a restful sleep last night. There was no reported leakage of blood into the ileostomy bag. Patient still has the ostomy ring and binder in place. Surgical team recommended considering variceal banding which could be the source of frequent bleeding into the ileostomy bag. They also recommended to keep the splenic catheter drain in place for continued perisplenic fluid. Nurse was notified to call GI team for further recommendations. We will continue to taper her midodrine in the subsequent days as she is maintaining good blood pressure. 09/11/2025: Patient was examined at bedside in room 302 with daughter at bedside. Patient reports that she still continues to have restless nights due to anxiety. There was no blood in the ileostomy bag noted over the last night however bag has to be replaced due to leakage. Currently pending GI recommendations for evaluation of varices for potential banding. Hemoglobin remained stable. Daughter expressed concerns about severe anxiety causing her to not eat, not ambulate, and unable to express fears due to the medical complexities involved. We ordered a tele psych consult for evaluation of severe anxiety and ordered Seroquel PRN for insomnia and we will continue mirtazapine 7.5 mg everyday. We will obtain recommendations from Gastroenterology on Saturday. In addition we reinforced to the daughter that patient's hemoglobin is being monitored on a daily basis and bleeding in ileostomy bag should not be a concern for anxiety and reiterated to explain this to her mother. Also encou raged the patient to ambulate in the hallways and increase her dietary intake. REVIEW OF SYSTEMS CONSTITUTIONAL: malaise, poor oral intake -resolving NEUROLOGICAL: Denies headache, motor weakness, sensory deficit, vertigo/spinning sensation, gait abnormalities, or tremors. ENT: No hearing loss, otalgia, otorrhea, rhinitis, rhinorrhea, hoarseness, or sore throat. CARDIOVASCULAR: Denies any exertional angina, dyspnea on exertion, orthopnea, paroxysmal nocturnal dyspnea, palpitations, life-threatening arrhythmias, claudication. PULMONARY: Denies any shortness of breath, cough, phlegm/sputum, hemoptysis, pleuritic chest pain. SLEEP: Denies morning headaches, daytime somnolence or napping. Denies difficulty falling asleep, staying asleep, waking from sleep. Denies knowledge of snoring. GASTROINTESTINAL: nausea, vomiting, abdominal pain, melena, coffee ground emesis - resolved GENITOURINARY: Urine output was very low - resolving PHYSICAL EXAM GENERAL APPEARANCE: The patient is awake, alert, and oriented, answering to all questions with very mild pain around her drains. NEUROLOGICAL: Cranial nerves II-XII grossly intact. Neurological examination is non focal with spontaneous movement of upper and lower extremities HEENT: Face is symmetric. Pupils are equal and reactive. Extraocular movements are intact. NECK: Supple. No JVD. No thyromegaly. No submental, submandibular, pre- /postauricular, occipital or supraclavicular lymphadenopathy. CHEST: Normal chest expansion. No Telemetry. LUNGS: Absence of any rales, rhonchi or any wheezing. CARDIOVASCULAR: Regular. S1 and S2 normal. No appreciable rubs, murmurs or gallops. ABDOMEN: no rebound noted, there is perisplenic abdominal drain noted with ileostomy bag, ostomy ring and abdominal binder. : Deferred. Currently catheterized. EXTREMITIES: Swelling in right upper extremity. Mild ecchymosis. Vital Signs (last 8hr) Date Time Temp Pulse Resp B/P (MAP) Pulse Ox O2 Delivery O2 Flow Rate FiO2 09/11/25 12:00 97.9 95 17 134/73 95 Room Air 09/11/25 08:00 97.5 103 16 131/72 98 Room Air 09/11/25 08:00 98 Room Air* 0 21 LABS: Laboratory: Test 09/11/25 12:00 09/11/25 04:50 09/10/25 08:16 09/10/25 04:59 Range/Units Whole Blood Glucose 142 #H 70-110 MG/DL White Blood Count 4.7 #L 4.8-10.8 K/uL Red Blood Count 3.08 L 4.00-5.50 MIL/uL Hemoglobin 9.6 L 12.0-16.0 g/dL Hematocrit 29.3 L 36-48 % Mean Corpuscular Volume 95.1 79-99 fL Mean Corpuscular Hemoglobin 31.2 27.0-33.0 pg Mean Corpuscular Hemoglobin Concent 32.8 32.0-36.0 g/dL Red Cell Distribution Width 18.6 H 11.0-15.5 % Platelet Count 202 130-400 K/uL Mean Platelet Volume 9.8 7.5-10.5 fL Nucleated Red Blood Cells 0.0 0.0-0.19 % Sodium Level 135 L 136-145 mmol/L Potassium Level 4.0 3.5-5.1 mmol/L Chloride Level 106 101-111 mmol/L Carbon Dioxide Level 21 21-32 mmol/L Blood Urea Nitrogen 12 7-18 mg/dL Creatinine 0.9 0.5-1.0 mg/dL Glomerular Filtration Rate Calc 75 >90 mL/min Random Glucose 101 70-105 mg/dL Total Calcium 8.5 8.5-10.1 mg/dL Ammonia 34 H 11-32 umol/L Immature Granulocyte % (Auto) 0.6 0-1 % Neutrophils (%) (Auto) 55.7 40.0-77.0 % Lymphocytes (%) (Auto) 28.2 21.0-51.0 % Monocytes (%) (Auto) 10.8 3.0-13.0 % Eosinophils (%) (Auto) 4.1 0.0-8.0 % Basophils (%) (Auto) 0.6 0.0-5.0 % Neutrophils # (Auto) 2.0 1.8-7.7 K/uL Lymphocytes # (Auto) 1.0 1.0-4.8 K/uL Monocytes # (Auto) 0.4 0.1-1.0 K/uL Eosinophils # (Auto) 0.15 0.00-0.70 K/uL Basophils # (Auto) 0.02 0.00-0.20 K/uL Absolute Immature Granulocyte (auto 0.02 0-1 K/uL Total Bilirubin 0.5 0.2-1.0 mg/dL Aspartate Amino Transf (AST/SGOT) 50 H 10-37 U/L Alanine Aminotransferase (ALT/SGPT) 25 12-78 U/L Alkaline Phosphatase 116 50-136 U/L Total Protein 6.1 6.0-8.3 g/dL Albumin 2.3 L 3.5-5.0 g/dL Current Medications Medications (Trade) Dose Ordered Sig/Gregory Route PRN Reason Start Time Stop Time Status Last Admin Dose Admin Acetaminophen (TYLenol 325MG TAB) 650 mg Q6H PRN PO MILD PAIN (1-3) 08/29/25 10:00 09/28/25 09:59 Acetaminophen/ Hydrocodone Bitart (NORco 5/325MG) 2 tab Q4H PRN PO SEVERE PAIN (7-10) 09/08/25 09:30 09/13/25 09:29 09/11/25 00:45 2 TAB Albuterol (DUOneb) 1 udvial Q6H PRN IH SHORTNESS OF BREATH 08/29/25 10:00 09/28/25 09:59 Apixaban (EliquIS) 5 mg BID PO 09/08/25 21:00 10/08/25 20:59 09/11/25 08:17 5 MG Apixaban (EliquIS) 10 mg BID PO 09/07/25 22:00 09/08/25 01:42 DC 09/07/25 22:06 10 MG Apixaban (EliquIS) 10 mg BID PO 09/08/25 09:30 09/08/25 10:13 DC Atorvastatin Calcium (LIPItor 10MG) 5 mg HS PO 09/05/25 21:00 10/05/25 20:59 09/10/25 20:25 5 MG Calcium Gluconate (Calcium Gluc 1gm Vial) 1 gm ONCE IV 08/29/25 09:30 08/29/25 09:23 DC Cyclobenzaprine HCl (Cyclobenzaprine HCl) 5 mg TID PRN PO muscle spasms 09/05/25 11:00 10/05/25 10:59 Dextrose (D50w) 50 ml AD PRN IV HYPOGLYCEMIA PROTOCOL 08/29/25 10:00 09/28/25 09:59 Dextrose/Sodium Chloride 1,000 ml @ 0 mls/hr AD IV 08/29/25 12:30 08/29/25 16:05 DC Duloxetine HCl (CymbALTA 30 mg CAP) 30 mg BID PO 09/03/25 21:00 09/09/25 11:10 DC 09/09/25 10:37 30 MG Enoxaparin Sodium (Lovenox (Pharmacy To Dose)) 1 unit Q12H SQ 09/06/25 13:30 09/06/25 13:21 DC Enoxaparin Sodium (Lovenox 60mg) 60 mg Q12H SQ 09/06/25 13:30 09/07/25 15:03 DC 09/07/25 14:29 60 MG Folic Acid (FOLic ACID 1 MG TABLET) 1 mg DAILY PO 09/08/25 09:00 10/08/25 08:59 09/11/25 08:16 1 MG Glucagon (Glucagon 1mg Kit) 1 mg AD PRN IM HYPOGLYCEMIA PROTOCOL 08/29/25 10:00 09/28/25 09:59 Home Med (Home Medication) (Medroxyprogesterone Acetate (Provera) 1 TAB) DAILY PO 09/06/25 09:00 10/06/25 08:59 Insulin Human Regular (humuLIN R 100 UNIT/ML 3ML) 5 unit ONCE IV 08/29/25 09:30 08/29/25 09:25 DC Insulin Human Regular (humuLIN R 100 UNIT/ML 3ML) INSULIN SLIDING SCAL... ACHS SQ 08/29/25 11:30 09/28/25 11:29 09/10/25 20:29 2 UNIT Insulin Human Regular 100 unit/ Sodium Chloride 101 ml @ 0 mls/hr PROTOCOL IV 08/29/25 12:30 08/29/25 16:05 DC Lactated Ringer's 1,000 ml @ 100 mls/hr Q10H IV 09/06/25 00:00 09/06/25 18:44 DC 09/06/25 08:35 100 MLS/HR Lactulose (Constulose 20gm/ 30ml Udcup) 20 gm BID PO 09/05/25 21:00 10/01/25 13:59 09/11/25 08:16 20 GM Lactulose (Constulose 20gm/ 30ml Udcup) 20 gm TID PO 09/01/25 14:00 09/05/25 10:44 DC 09/05/25 08:06 20 GM Magnesium Sulfate 50 ml @ 0 mls/hr PROTOCOL IV 08/29/25 12:30 08/29/25 16:05 DC Magnesium Sulfate 50 ml @ 0 mls/hr PROTOCOL IV 08/30/25 10:00 09/29/25 09:59 09/08/25 04:26 25 MLS/HR Magnesium Sulfate 50 ml @ 0 mls/hr PROTOCOL IV 09/02/25 13:30 09/02/25 13:04 DC Magnesium Sulfate 50 ml @ 0 mls/hr PROTOCOL IV 09/03/25 08:00 09/03/25 07:43 DC Meropenem (Merrem 500mg) 500 mg Q24H IVPB 08/29/25 10:00 08/31/25 09:59 DC 08/30/25 09:46 500 MG Meropenem (Merrem 500mg) 500 mg Q24H IVPB 08/31/25 23:30 09/10/25 02:29 DC 09/09/25 23:40 500 MG Midodrine (PROAMatine 5 MG TABLET) 5 mg BID PO 09/10/25 09:00 09/11/25 07:21 DC 09/10/25 21:42 5 MG Midodrine (PROAMatine 5 MG TABLET) 5 mg DAILY20 PO 09/11/25 20:00 09/12/25 09:00 Midodrine (PROAMatine 5 MG TABLET) 5 mg TID PO 09/08/25 21:00 09/10/25 08:05 DC 09/09/25 15:24 5 MG Midodrine (PROAMatine 5 MG TABLET) 10 mg BID PO 09/01/25 09:00 08/31/25 18:36 DC Midodrine (PROAMatine 5 MG TABLET) 10 mg TID PO 09/01/25 09:00 09/08/25 17:20 DC 09/08/25 16:16 10 MG Mirtazapine (REMeron 15 MG TAB) 7.5 mg HS PO 09/09/25 21:00 10/09/25 20:59 09/10/25 20:24 7.5 MG Morphine Sulfate (morPHINE 2MG SYG) 0.5 mg Q4H PRN IVP SEVERE PAIN (7-10) 09/07/25 13:30 09/08/25 09:11 DC 09/08/25 04:27 0.5 MG Morphine Sulfate (morPHINE 2MG SYG) 0.5 mg Q4H PRN IVP SEVERE PAIN (7-10) 09/08/25 18:00 09/09/25 11:10 DC Morphine Sulfate (morPHINE 2MG SYG) 1 mg Q4H PRN IVP SEVERE PAIN (7-10) 09/05/25 13:30 09/07/25 11:35 DC 09/06/25 23:40 1 MG Morphine Sulfate (morPHINE 2MG SYG) 2 mg Q4H PRN IVP SEVERE PAIN (7-10) 09/01/25 05:30 09/05/25 13:19 DC 09/05/25 04:28 2 MG Norepinephrine Bitartrate 32 mg/ Sodium Chloride 250 ml @ 0 mls/hr Q0M STAT IV 08/29/25 21:01 08/29/25 21:07 DC 08/29/25 21:13 0 MLS/HR Octreotide Acetate 1250 mcg/ Sodium Chloride 250 ml @ 0 mls/hr PROTOCOL IV 08/29/25 08:30 09/01/25 10:32 DC 08/31/25 10:18 5 MLS/HR Ondansetron HCl (zoFRAN 4MG INJ) 4 mg Q6H PRN IVP NAUSEA/VOMITING 08/29/25 09:30 09/28/25 09:29 09/09/25 10:42 4 MG Pantoprazole Sodium (PROTonix 40MG INJ) 40 mg BID IVP 09/01/25 21:00 09/03/25 14:32 DC 09/03/25 09:16 40 MG Pantoprazole Sodium (PROTonix 40MG INJ) 40 mg BID IVP 09/06/25 09:00 10/06/25 08:59 09/11/25 08:16 40 MG Pantoprazole Sodium (PROTonix 40MG TAB) 40 mg DAILY PO 09/04/25 09:00 09/06/25 00:03 DC 09/05/25 08:06 40 MG Pantoprazole Sodium 80 mg/ Sodium Chloride 100 ml @ 10 mls/hr Q10H IV 08/29/25 08:30 09/01/25 10:32 DC 09/01/25 05:50 10 MLS/HR Pharmacy Profile Note (Pharmacy Communication) 1 each ONCE MISC 08/29/25 09:30 08/29/25 09:35 DC Pharmacy Profile Note (Pharmacy Communication) 1 each ONCE MISC 08/31/25 23:30 08/31/25 23:17 DC Potassium Chloride 100 ml @ 50 mls/hr AD PRN IV POTASSIUM PROTOCOL 08/29/25 12:30 09/28/25 12:29 09/02/25 06:26 50 MLS/HR Psyllium Hydrophilic Mucilloid (Metamucil) 1 tbs TID PO 09/04/25 14:00 10/04/25 13:59 09/11/25 13:43 1 TBS Quetiapine Fumarate (SEROquel 25 mg TAB) 25 mg ONCE PRN PO INSOMNIA 09/11/25 21:00 10/11/25 20:59 Sodium Bicarbonate 150 meq/Dextrose 1,150 ml @ 125 mls/hr Q9H12M IVP 08/29/25 10:00 08/30/25 10:12 DC 08/30/25 08:07 125 MLS/HR Sodium Bicarbonate (Sodium Bicarbonate) 1,300 mg QID PO 09/10/25 17:00 10/10/25 16:59 09/11/25 13:43 1,300 MG Sodium Bicarbonate (Sodium Bicarbonate) 1,300 mg TID PO 09/07/25 14:00 09/08/25 18:00 DC 09/08/25 16:15 1,300 MG Sodium Bicarbonate (Sodium Bicarbonate) 1,300 mg TID PO 09/09/25 09:00 09/10/25 12:00 DC 09/10/25 10:31 1,300 MG Sodium Chloride 250 ml @ 0 mls/hr AD IV 08/29/25 17:30 09/28/25 17:29 Sodium Chloride 1,000 ml @ 0 mls/hr Q0M IV 08/29/25 16:00 08/29/25 16:03 DC Sodium Chloride 1,000 ml @ 0 mls/hr Q0M IV 08/29/25 16:00 09/01/25 08:01 DC 08/29/25 16:10 500 MLS/HR Sodium Chloride 1,000 ml @ 125 mls/hr Q8H IV 08/29/25 09:30 08/29/25 09:57 DC Sodium Chloride 1,000 ml @ 150 mls/hr Q6H40M IV 08/29/25 18:30 09/01/25 09:29 DC 08/31/25 16:16 150 MLS/HR Sodium Chloride 1,000 ml @ 200 mls/hr PROTOCOL IV 08/29/25 12:30 08/29/25 16:05 DC Sodium Chloride 1,000 ml @ 999 mls/hr Q1H1M IV 08/29/25 09:30 08/29/25 09:06 DC Thiamine HCl (Vitamin B-1) 200 mg Q12H IVP 08/29/25 09:30 09/02/25 09:30 DC 09/02/25 08:56 200 MG Vitamin B Complex (Vitamin B-12) 1,000 mcg DAILY PO 09/08/25 09:00 10/08/25 08:59 09/11/25 08:16 1,000 MCG DIAGNOSTICS / RADIOLOGY: [ ] ASSESSMENT: Acute upper GI bleeding- Hematemesis, dark output from ileostomy bag, POA, Improving Acute DVT of right axillary vein and right cephalic vein High output from ileostomy bag, not POA Hemorrhagic shock versus hypovolemic shock, POA, Resolved Normocytic normochromic anemia, POA Non anion gap metabolic acidosis Generalized anxiety and Insomnia, POA Hypovolemic hypochloremic hyponatremia, POA, Resolved Severe hyperkalemia, POA, Resolved Hypokalemia, Not POA, resolved Hypophosphatemia, Not POA High anion gap metabolic acidosis, POA, Resolved Hyperammonemia, POA, Improving Lactic acidosis, POA, Resolved Hyperphosphatemia, POA, Resolved Acute renal failure - Prerenal Acute Kidney Injury, POA, resolved Starvation Ketoacidosis, POA Rule out occult sepsis, POA Recent extended hospitalization in [facility], 07/20/2025-1 for sepsis, acute abdomen, POA Severe Dehydration, POA, Improving History of esophageal varices, POA Acute Decompensated liver cirrhosis, POA Hx of acute cholecystitis, s/p cholecystostomy tube placement on 08/02/2025. Perisplenic abscess, s/p CT-guided drainage placement on 08/09/2025. 2.7 x 2.2 x 5.1 cm infrasplenic collection History of gastritis, POA Hx of Generalized peritonitis with ESBL E coli infection, POA Moderate Protein calorie malnutrition POA History of bilious peritonitis with small colonic anastomosis perforation s/p diagnostic laparoscopy, abdominal washout, ileostomy creation by Dr. Gann, 07/21/2025 Hx of DM II, POA Recent colovesical fistula repair with sigmoid colon resection and anastomosis on PLAN: High output from ileostomy * Continue fiber 3 times a day. Secretions have thickened. * Monitor for any signs of dehydration including vitals and BMP. * Lactulose decreased to b.i.d. from t.i.d.. * Ostomy ring and abdominal binder in place for better seal. * Monitor input and output including ileostomy bag. Acute DVT of right axillary vein and right cephalic vein * Patient developed nodular, tender swelling along the venous distribution in right upper extremity * Venous doppler on 09/05/25 revealed acute DVT of right axillary vein and right cephalic vein * Hematology recommended to bridge Lovenox 60 mg Q12 with Apixaban 10 mg BID for 5 days followed by Apixaban 5 mg bid for 3 months * We changed the apixaban to 5 mg b.i.d. * Gastroenterology cleared patient for anticoagulation Non-Anion gap metabolic acidosis * Patient's bicarb is 19, sodium 137, chloride 109 and albumin 2.5, albumin corrected anion gap 11.8 * Patient to be continued on 1300 mg of sodium bicarbonate t.i.d. * We will monitor labs tomorrow a.m. Acute upper GI bleeding- Hematemesis, dark output from ileostomy bag * EGD was done which showed less than 5 mm esophageal varices with scar in the lower 3rd of the esophagus, hypertensive gastropathy, status post biopsy, duodenum was normal during examination. * Patient received Sandostatin and Protonix drip on presentation which were subsequently stopped . * Patient resumed on IV Protonix 40 mg b.i.d. * Diet advanced to regular diet * Monitor for bleeding, we will obtain recommendations from GI for possible variceal banding * Ileostomy output 225 ml in last 24 hours and has thicker consistency, continue fiber 3 times daily. Normocytic normochromic anemia, iron deficiency * Patient's hemoglobin stable at 9.6 * Anemia of chronic disease versus iron deficiency versus blood loss. * Iron 31, TIBC 155, % sat 20 * Keep hemoglobin above 7 Acute renal failure, Prerenal Acute Kidney Injury, Dehydration, resolved * On Presentation, patient's creatinine was 5, BUN 80. * FENa <0.2, Stone <20 - Urine microscopy showed Hyaline and granular casts * Patient was started on NaCl 150mls/hr which was stopped. * Bicarb drip was discontinued as per nephrology. * patient is successfully weaned off Levophed * Patient received emergent hemodialysis session for elevated renal parameters as well as electrolyte derangements including Hyperkalemia and acidosis. * Her creatinine and BUN have improved to 0.7 and 9 respectively (09/08) * Transfuse as needed to keep Hb above 7 (Hb=9.0, 08/31/25) * Monitor input and output. Patient's total output in the past24 hours is 2070, versus 3950 input. * We will repeat a.m. labs and follow up with Nephrology recommendations. Generalized anxiety and Insomnia * Patient very anxious about her health outcomes from the medical complexity * Patient is worried after noticing blood in the ileostomy bag while continuing anticoagulation for DVT * Patient reassured of close monitoring and risk vs benefits on continuing anticoagulation * Continue Mirtazapine 7.5 mg daily and Seroquel 25 mg PRN ATTESTATION BY PHYSICIAN I have seen and examined the patient. I reviewed the documentation, medical decision making, and treatment plan as noted by the resident physician above. I agree with the findings and plan of care. AYAKA BARR MD, HARSHAVARDHA MD Sep 11, 2025 15:32
--- NOTE | 2025-09-11 16:08 | PN ---
GENERAL SURGERY PROGRESS NOTE Date/Time Patient Seen: [09/11/2025 1400 ] Interval History: This 55-year-old female seen in her room resting comfortably, daughter at bedside EGD was not done due to patient being on Eliquis anticoagulation Patient is still continues to have dark-bloody output from ostomy, mainly when she attempts to get out of bed or does a lot of movement Maintaining stable H&H at 9.6 and 29.3 Stool in ostomy is now more paste like rather than watery No other acute events reported at this time Patient tolerating soft diet Physical exam General: Awake alert and oriented Heart: Regular rate and rhythm} Lungs: Clear to auscultation no distress Abdomen: Soft, nontender, nondistended ostomy productive with healthy stoma, left upper quadrant percutaneous drain in place Assessment and Plan: Pending for patient to have EGD to get esophageal banding and see if that helps with bleeding into ostomy Continue monitoring H and H Continue with left upper quadrant percutaneous drain, monitoring strict output Patient to continue with diet as tolerated Patient encouraged to ambulate Repeat labs in a.m. Continue with fiber t.i.d. No surgical intervention at this time Surgical team will continue to follow Dr. Gann to be updated in patient's status Surgical case has been discussed with my supervising physician in the above plan was formulated and agreed upon We appreciate the hospitalist team for us to participate in patient's care. Greater than 45 minutes of time spent patient, reviewing chart, working on documentation Current Medications Medications (Trade) Dose Ordered Sig/Gregory Route Start Time Stop Time Status Last Admin Dose Admin Apixaban (EliquIS) 5 mg BID PO 09/08/25 21:00 10/08/25 20:59 09/11/25 08:17 5 MG Apixaban (EliquIS) 10 mg BID PO 09/07/25 22:00 09/08/25 01:42 DC 09/07/25 22:06 10 MG Apixaban (EliquIS) 10 mg BID PO 09/08/25 09:30 09/08/25 10:13 DC Atorvastatin Calcium (LIPItor 10MG) 5 mg HS PO 09/05/25 21:00 10/05/25 20:59 09/10/25 20:25 5 MG Calcium Gluconate (Calcium Gluc 1gm Vial) 1 gm ONCE IV 08/29/25 09:30 08/29/25 09:23 DC Dextrose/Sodium Chloride 1,000 ml @ 0 mls/hr AD IV 08/29/25 12:30 08/29/25 16:05 DC Duloxetine HCl (CymbALTA 30 mg CAP) 30 mg BID PO 09/03/25 21:00 09/09/25 11:10 DC 09/09/25 10:37 30 MG Enoxaparin Sodium (Lovenox (Pharmacy To Dose)) 1 unit Q12H SQ 09/06/25 13:30 09/06/25 13:21 DC Enoxaparin Sodium (Lovenox 60mg) 60 mg Q12H SQ 09/06/25 13:30 09/07/25 15:03 DC 09/07/25 14:29 60 MG Folic Acid (FOLic ACID 1 MG TABLET) 1 mg DAILY PO 09/08/25 09:00 10/08/25 08:59 09/11/25 08:16 1 MG Home Med (Home Medication) (Medroxyprogesterone Acetate (Provera) 1 TAB) DAILY PO 09/06/25 09:00 10/06/25 08:59 Insulin Human Regular (humuLIN R 100 UNIT/ML 3ML) 5 unit ONCE IV 08/29/25 09:30 08/29/25 09:25 DC Insulin Human Regular (humuLIN R 100 UNIT/ML 3ML) INSULIN SLIDING SCAL... ACHS SQ 08/29/25 11:30 09/28/25 11:29 09/10/25 20:29 2 UNIT Insulin Human Regular 100 unit/ Sodium Chloride 101 ml @ 0 mls/hr PROTOCOL IV 08/29/25 12:30 08/29/25 16:05 DC Lactated Ringer's 1,000 ml @ 100 mls/hr Q10H IV 09/06/25 00:00 09/06/25 18:44 DC 09/06/25 08:35 100 MLS/HR Lactulose (Constulose 20gm/ 30ml Udcup) 20 gm BID PO 09/05/25 21:00 10/01/25 13:59 09/11/25 08:16 20 GM Lactulose (Constulose 20gm/ 30ml Udcup) 20 gm TID PO 09/01/25 14:00 09/05/25 10:44 DC 09/05/25 08:06 20 GM Magnesium Sulfate 50 ml @ 0 mls/hr PROTOCOL IV 08/29/25 12:30 08/29/25 16:05 DC Magnesium Sulfate 50 ml @ 0 mls/hr PROTOCOL IV 08/30/25 10:00 09/29/25 09:59 09/08/25 04:26 25 MLS/HR Magnesium Sulfate 50 ml @ 0 mls/hr PROTOCOL IV 09/02/25 13:30 09/02/25 13:04 DC Magnesium Sulfate 50 ml @ 0 mls/hr PROTOCOL IV 09/03/25 08:00 09/03/25 07:43 DC Meropenem (Merrem 500mg) 500 mg Q24H IVPB 08/29/25 10:00 08/31/25 09:59 DC 08/30/25 09:46 500 MG Meropenem (Merrem 500mg) 500 mg Q24H IVPB 08/31/25 23:30 09/10/25 02:29 DC 09/09/25 23:40 500 MG Midodrine (PROAMatine 5 MG TABLET) 5 mg BID PO 09/10/25 09:00 09/11/25 07:21 DC 09/10/25 21:42 5 MG Midodrine (PROAMatine 5 MG TABLET) 5 mg DAILY20 PO 09/11/25 20:00 09/12/25 09:00 Midodrine (PROAMatine 5 MG TABLET) 5 mg TID PO 09/08/25 21:00 09/10/25 08:05 DC 09/09/25 15:24 5 MG Midodrine (PROAMatine 5 MG TABLET) 10 mg BID PO 09/01/25 09:00 08/31/25 18:36 DC Midodrine (PROAMatine 5 MG TABLET) 10 mg TID PO 09/01/25 09:00 09/08/25 17:20 DC 09/08/25 16:16 10 MG Mirtazapine (REMeron 15 MG TAB) 7.5 mg HS PO 09/09/25 21:00 10/09/25 20:59 09/10/25 20:24 7.5 MG Norepinephrine Bitartrate 32 mg/ Sodium Chloride 250 ml @ 0 mls/hr Q0M STAT IV 08/29/25 21:01 08/29/25 21:07 DC 08/29/25 21:13 0 MLS/HR Octreotide Acetate 1250 mcg/ Sodium Chloride 250 ml @ 0 mls/hr PROTOCOL IV 08/29/25 08:30 09/01/25 10:32 DC 08/31/25 10:18 5 MLS/HR Pantoprazole Sodium (PROTonix 40MG INJ) 40 mg BID IVP 09/01/25 21:00 09/03/25 14:32 DC 09/03/25 09:16 40 MG Pantoprazole Sodium (PROTonix 40MG INJ) 40 mg BID IVP 09/06/25 09:00 10/06/25 08:59 09/11/25 08:16 40 MG Pantoprazole Sodium (PROTonix 40MG TAB) 40 mg DAILY PO 09/04/25 09:00 09/06/25 00:03 DC 09/05/25 08:06 40 MG Pantoprazole Sodium 80 mg/ Sodium Chloride 100 ml @ 10 mls/hr Q10H IV 08/29/25 08:30 09/01/25 10:32 DC 09/01/25 05:50 10 MLS/HR Pharmacy Profile Note (Pharmacy Communication) 1 each ONCE MISC 08/29/25 09:30 08/29/25 09:35 DC Pharmacy Profile Note (Pharmacy Communication) 1 each ONCE MISC 08/31/25 23:30 08/31/25 23:17 DC Psyllium Hydrophilic Mucilloid (Metamucil) 1 tbs TID PO 09/04/25 14:00 10/04/25 13:59 09/11/25 13:43 1 TBS Sodium Bicarbonate 150 meq/Dextrose 1,150 ml @ 125 mls/hr Q9H12M IVP 08/29/25 10:00 08/30/25 10:12 DC 08/30/25 08:07 125 MLS/HR Sodium Bicarbonate (Sodium Bicarbonate) 1,300 mg QID PO 09/10/25 17:00 10/10/25 16:59 09/11/25 13:43 1,300 MG Sodium Bicarbonate (Sodium Bicarbonate) 1,300 mg TID PO 09/07/25 14:00 09/08/25 18:00 DC 09/08/25 16:15 1,300 MG Sodium Bicarbonate (Sodium Bicarbonate) 1,300 mg TID PO 09/09/25 09:00 09/10/25 12:00 DC 09/10/25 10:31 1,300 MG Sodium Chloride 250 ml @ 0 mls/hr AD IV 08/29/25 17:30 09/28/25 17:29 Sodium Chloride 1,000 ml @ 0 mls/hr Q0M IV 08/29/25 16:00 08/29/25 16:03 DC Sodium Chloride 1,000 ml @ 0 mls/hr Q0M IV 08/29/25 16:00 09/01/25 08:01 DC 08/29/25 16:10 500 MLS/HR Sodium Chloride 1,000 ml @ 125 mls/hr Q8H IV 08/29/25 09:30 08/29/25 09:57 DC Sodium Chloride 1,000 ml @ 150 mls/hr Q6H40M IV 08/29/25 18:30 09/01/25 09:29 DC 08/31/25 16:16 150 MLS/HR Sodium Chloride 1,000 ml @ 200 mls/hr PROTOCOL IV 08/29/25 12:30 08/29/25 16:05 DC Sodium Chloride 1,000 ml @ 999 mls/hr Q1H1M IV 08/29/25 09:30 08/29/25 09:06 DC Thiamine HCl (Vitamin B-1) 200 mg Q12H IVP 08/29/25 09:30 09/02/25 09:30 DC 09/02/25 08:56 200 MG Vitamin B Complex (Vitamin B-12) 1,000 mcg DAILY PO 09/08/25 09:00 10/08/25 08:59 09/11/25 08:16 1,000 MCG Vital Signs (last 8hr) Date Time Temp Pulse Resp B/P (MAP) Pulse Ox O2 Delivery O2 Flow Rate FiO2 09/11/25 12:00 97.9 95 17 134/73 95 Room Air Laboratory: [ ] Hematology Labs: Test 09/11/25 04:50 09/10/25 04:59 Range/Units White Blood Count 4.7 #L 4.8-10.8 K/uL Red Blood Count 3.08 L 4.00-5.50 MIL/uL Hemoglobin 9.6 L 12.0-16.0 g/dL Hematocrit 29.3 L 36-48 % Mean Corpuscular Volume 95.1 79-99 fL Mean Corpuscular Hemoglobin 31.2 27.0-33.0 pg Mean Corpuscular Hemoglobin Concent 32.8 32.0-36.0 g/dL Red Cell Distribution Width 18.6 H 11.0-15.5 % Platelet Count 202 130-400 K/uL Mean Platelet Volume 9.8 7.5-10.5 fL Nucleated Red Blood Cells 0.0 0.0-0.19 % Immature Granulocyte % (Auto) 0.6 0-1 % Neutrophils (%) (Auto) 55.7 40.0-77.0 % Lymphocytes (%) (Auto) 28.2 21.0-51.0 % Monocytes (%) (Auto) 10.8 3.0-13.0 % Eosinophils (%) (Auto) 4.1 0.0-8.0 % Basophils (%) (Auto) 0.6 0.0-5.0 % Neutrophils # (Auto) 2.0 1.8-7.7 K/uL Lymphocytes # (Auto) 1.0 1.0-4.8 K/uL Monocytes # (Auto) 0.4 0.1-1.0 K/uL Eosinophils # (Auto) 0.15 0.00-0.70 K/uL Basophils # (Auto) 0.02 0.00-0.20 K/uL Absolute Immature Granulocyte (auto 0.02 0-1 K/uL Chemistry Labs: Test 09/11/25 12:00 09/11/25 04:50 09/10/25 08:16 09/10/25 04:59 Range/Units Whole Blood Glucose 142 #H 70-110 MG/DL Sodium Level 135 L 136-145 mmol/L Potassium Level 4.0 3.5-5.1 mmol/L Chloride Level 106 101-111 mmol/L Carbon Dioxide Level 21 21-32 mmol/L Blood Urea Nitrogen 12 7-18 mg/dL Creatinine 0.9 0.5-1.0 mg/dL Glomerular Filtration Rate Calc 75 >90 mL/min Random Glucose 101 70-105 mg/dL Total Calcium 8.5 8.5-10.1 mg/dL Ammonia 34 H 11-32 umol/L Total Bilirubin 0.5 0.2-1.0 mg/dL Aspartate Amino Transf (AST/SGOT) 50 H 10-37 U/L Alanine Aminotransferase (ALT/SGPT) 25 12-78 U/L Alkaline Phosphatase 116 50-136 U/L Total Protein 6.1 6.0-8.3 g/dL Albumin 2.3 L 3.5-5.0 g/dL Diagnostics / Radiology: [Copy/Paste Echos/Imaging Report here] ATTESTATION BY PHYSICIAN I have seen and examined the patient. I reviewed the documentation, medical decision making, and treatment plan as noted by the mid-level provider above. I agree with the findings and plan of care. MD LEANA ISRAEL LETICIA A [facility] Sep 11, 2025 16:08
[2025-09-12] VITALS (7 sets, daily range): BP systolic 118–134; BP diastolic 55–79; PULSE 85–109; RESP 18–19; TEMP 97.6–98.3; O2SAT 94–98
--- NOTE | 2025-09-12 01:52 | NUR ---
ILEOSTOMY CHANGE ILEOSTOMY BAG LEAKING REMOVED ILEOSTOMY PERFORMED STOMA CARE NEW APPLIANCE REPLACED FROM PATIENTS SUPPLY
[2025-09-12 05:15] LABS: IMMATURE GRANULOCYTE ABSOLUTE 0.04 K/uL (0-1); NUCLEATED RED BLOOD CELLS 0.0 % (0.0-0.19); PLATELET COUNT (AUTO) 243 K/uL (130-400); RED BLOOD CELL COUNT(AUTO) 3.12 MIL/uL (4.00-5.50); RED CELL DISTRIBUTION WIDTH 18.8 % (11.0-15.5); WHITE BLOOD COUNT (AUTO) 5.8 K/uL (4.8-10.8)
[2025-09-12 05:43] LABS: ASPARTATE AMINOTRANSFERASE 56.0 U/L (10-37); CREATININE 1.2 mg/dL (0.5-1.0); GLOMERULAR FILTR. RATE CALC 53.0 mL/min (>90); GLUCOSE,RANDOM 115.0 mg/dL (70-105); SODIUM SERUM 133.0 mmol/L (136-145); TOTAL PROTEIN, SERUM 6.8 g/dL (6.0-8.3); UREA NITROGEN, BLOOD 14.0 mg/dL (7-18)
--- NOTE | 2025-09-12 07:34 | CONS ---
CONSULT NOTE: Reason for consult: severe anxiety due to health status Reason for medical admission: 50-year-old female with underlying history of type 2 diabetes mellitus, history of liver cirrhosis, prior history of esophageal varices requiring banding in May,, history of robotic sigmoid resection with takedown of colovesical fistula who was recently hospitalized in [facility] from 07/20/2025 - 08/25/2025 patient was found to have bilious peritonitis with 2 mm perforation of colonic anastomosis requiring diagnostic laparoscopy, abdominal washout and drain placement with creation of diverting loop ileostomy. Patient was hospitalized for about one month and subsequently required IR guided drain placement as well. She was just discharged from the hospital on 08/25/2025. Patient's daughter reports that patient was having nausea and vomiting with poor oral intake at home. She started to have coffee-ground emesis today and she also noticed some right streaks of blood with a coffee-ground emesis. Stool has also been dark in the ileostomy bag. Patient is having moderate intensity ab dominal pain as well. She has not been taking any NSAIDs. Daughter reports that patient has been very weak since her discharge in very debilitated. Patient denies active chest pain. Denies active shortness of breath. CC: "I was throwing up a lot of blood" HPI: Patient states she is feeling "good" today. Patient came to the hospital because she was throwing up blood. Patient reports she has been having a lot of anxiety at night and she has been very restless. She has an ileostomy and the bag has been ripping, she has been bleeding, she has been in the hospital for too long and she doesn't fully understand what is going on. She denied any issues with insomnia or anxiety prior to coming to the hospital. She has family hx of psychiatric issues, specifically dementia. She denied any hx of depression, psychosis, schizophrenia or bipolar disorder. She has never taken any psychiatric medications or been admitted to a psychiatric hospital. She states the medications that were started have been helpful but she still didn't sleep well last night. She reports the medication helped with the anxiety. Patient reports that she did sleep a little bit but she was still restless. She denied any depression or suicidal thoughts. She says the doctors do come and answer her questions but she doesn't understand why she is here still and when she will be discharged. She still has some procedure to complete prior to DC. Patient says she feels like she came in for one thing and then all of these other issues started piling up. She is eating well. Patient reports she is not having much anxiety during the day. The anxiety and restlessness comes in the evenings. She says when her daughter is here she feels calmer and she feels at ease. Patient did not have any other symptoms to report or questions about her mental health. She likes the current medications and she is agreeable to increase the Remeron and Seroquel. No hx of inpatient psychiatric admissions or suicide attempts. No current outpatient mental health services. No hx of psychotropic medication trials. Current psychiatric medications: Seroquel, Remeron Vital Signs Date Time Temp Pulse Resp B/P (MAP) Pulse Ox O2 Delivery O2 Flow Rate FiO2 09/12/25 04:02 97.9 103 18 134/79 98 Room Air 09/11/25 20:00 0 21 Current Medications Medications Dose Ordered Sig/Gregory Start Time Stop Time Status Last Admin Ondansetron HCl 4 mg Q6H PRN 08/29/25 09:30 09/28/25 09:29 09/09/25 10:42 Dextrose 50 ml AD PRN 08/29/25 10:00 09/28/25 09:59 Glucagon 1 mg AD PRN 08/29/25 10:00 09/28/25 09:59 Acetaminophen 650 mg Q6H PRN 08/29/25 10:00 09/28/25 09:59 Albuterol 1 udvial Q6H PRN 08/29/25 10:00 09/28/25 09:59 Insulin Human Regular INSULIN SLIDING SCAL... ACHS 08/29/25 11:30 09/28/25 11:29 09/11/25 20:43 Potassium Chloride 100 ml @ 50 mls/hr AD PRN 08/29/25 12:30 09/28/25 12:29 09/02/25 06:26 Sodium Chloride 250 ml @ 0 mls/hr AD 08/29/25 17:30 09/28/25 17:29 Magnesium Sulfate 50 ml @ 0 mls/hr PROTOCOL 08/30/25 10:00 09/29/25 09:59 09/08/25 04:26 Psyllium Hydrophilic Mucilloid 1 tbs TID 09/04/25 14:00 10/04/25 13:59 09/11/25 20:32 Cyclobenzaprine HCl 5 mg TID PRN 09/05/25 11:00 10/05/25 10:59 Home Med (Medroxyprogesterone Acetate (Provera) 1 TAB) DAILY 09/06/25 09:00 10/06/25 08:59 Atorvastatin Calcium 5 mg HS 09/05/25 21:00 10/05/25 20:59 09/11/25 20:31 Lactulose 20 gm BID 09/05/25 21:00 10/01/25 13:59 09/11/25 08:16 Pantoprazole Sodium 40 mg BID 09/06/25 09:00 10/06/25 08:59 09/11/25 20:31 Folic Acid 1 mg DAILY 09/08/25 09:00 10/08/25 08:59 09/11/25 08:16 Vitamin B Complex 1,000 mcg DAILY 09/08/25 09:00 10/08/25 08:59 09/11/25 08:16 Acetaminophen/ Hydrocodone Bitart 2 tab Q4H PRN 09/08/25 09:30 09/13/25 09:29 09/12/25 00:26 Apixaban 5 mg BID 09/08/25 21:00 10/08/25 20:59 09/11/25 20:32 Mirtazapine 7.5 mg HS 09/09/25 21:00 10/09/25 20:59 09/11/25 20:31 Sodium Bicarbonate 1,300 mg QID 09/10/25 17:00 10/10/25 16:59 09/11/25 20:31 Midodrine 5 mg DAILY20 09/11/25 20:00 09/12/25 09:00 09/11/25 20:31 Quetiapine Fumarate 25 mg ONCE PRN 09/11/25 21:00 10/11/25 20:59 Laboratory Tests Test 09/11/25 12:00 09/11/25 16:01 09/11/25 19:03 09/12/25 04:33 Whole Blood Glucose 142 MG/DL (70-110) #H 155 MG/DL (70-110) H 211 MG/DL (70-110) H White Blood Count 5.8 K/uL (4.8-10.8) Red Blood Count 3.12 MIL/uL (4.00-5.50) L Hemoglobin 9.7 g/dL (12.0-16.0) L Hematocrit 29.5 % (36-48) L Mean Corpuscular Volume 94.6 fL (79-99) Mean Corpuscular Hemoglobin 31.1 pg (27.0-33.0) Mean Corpuscular Hemoglobin Concent 32.9 g/dL (32.0-36.0) Red Cell Distribution Width 18.8 % (11.0-15.5) H Platelet Count 243 K/uL (130-400) Mean Platelet Volume 9.8 fL (7.5-10.5) Immature Granulocyte % (Auto) 0.7 % (0-1) Neutrophils (%) (Auto) 59.6 % (40.0-77.0) Lymphocytes (%) (Auto) 26.6 % (21.0-51.0) Monocytes (%) (Auto) 7.5 % (3.0-13.0) Eosinophils (%) (Auto) 4.9 % (0.0-8.0) Basophils (%) (Auto) 0.7 % (0.0-5.0) Neutrophils # (Auto) 3.4 K/uL (1.8-7.7) Lymphocytes # (Auto) 1.5 K/uL (1.0-4.8) Monocytes # (Auto) 0.4 K/uL (0.1-1.0) Eosinophils # (Auto) 0.28 K/uL (0.00-0.70) Basophils # (Auto) 0.04 K/uL (0.00-0.20) Absolute Immature Granulocyte (auto 0.04 K/uL (0-1) Nucleated Red Blood Cells 0.0 % (0.0-0.19) Sodium Level 133 mmol/L (136-145) L Potassium Level 4.1 mmol/L (3.5-5.1) Chloride Level 106 mmol/L (101-111) Carbon Dioxide Level 20 mmol/L (21-32) L Blood Urea Nitrogen 14 mg/dL (7-18) Creatinine 1.2 mg/dL (0.5-1.0) H Glomerular Filtration Rate Calc 53 mL/min (>90) Random Glucose 115 mg/dL (70-105) H Total Calcium 9.0 mg/dL (8.5-10.1) Total Bilirubin 0.6 mg/dL (0.2-1.0) Aspartate Amino Transf (AST/SGOT) 56 U/L (10-37) H Alanine Aminotransferase (ALT/SGPT) 29 U/L (12-78) Alkaline Phosphatase 141 U/L (50-136) H Total Protein 6.8 g/dL (6.0-8.3) Albumin 2.5 g/dL (3.5-5.0) L Test 09/12/25 05:26 Whole Blood Glucose 119 MG/DL (70-110) H MSE: Patient is a 55 yo female. She is Turkish speaking. She is alert and oriented to person, place and situation. Eye contact is good. Speech is fluent. No AIMS or psychomotor disturbances. Grooming is appropriate. Mood is "good" and affect is neutral and reactive. Thought process is linear and goal directed. Thought content is negative for SI, HI, AVH. Memory and cognition are grossly intact. Insight and judgment are fair. Assessment: Anxiety w/ insomnia Recommendations: -Patient is not currently suicidal, homicidal or psychotic and she does not require inpatient psychiatric admission at this time. -Continue Remeron and increase to 15 mg QHS. -Continue Seroquel 25 mg QHS PRN and offer it to her 30-60 mins after the Remeron if she is still awake and restless. If the 25 mg dose is too much and she feels groggy in the AM then try reducing to 12.5 mg QHS PRN. -Please make referrals to outpatient psychiatry and therapy after DC. -Psychiatry signing off. *15 mins was spent [id number] with patient and 25 mins was spent on chart review and documentation. MARYLU MENENDEZ DO Sep 12, 2025 07:34
--- NOTE | 2025-09-12 09:58 | PN ---
NEPHROLOGY PROGRESS NOTE Date/Time Patient Seen: Sep 12, 2025 SUBJECTIVE: This is a 55-year-old female with a past medical history of diabetes mellitus type 2, liver cirrhosis, esophageal varices. She initially presented to the hospital with GI bleeding. The patient did have significant hyperkalemia upon admission and did require one course of dialysis. The patient's renal function has greatly improved. The patient had been having some hematochezia through the ostomy and the patient is being seen by Surgical Service and GI She continues to be followed by wound care. The patient is being seen as a followup visit for all of the above. Renal function and electrolytes have been stable. Pending EGD Marc nielsen been placed on hold for EGD She was seen in the medical floor, in no acute distress Multiple family members at the bedside REVIEW OF SYSTEMS: GENERAL: Positive for generalized weakness NEUROLOGIC: Negative for any blurry vision, blind spots, double vision, facial asymmetry, dysphagia, dysarthria, hemiparesis, hemisensory deficits, vertigo, ataxia. HEENT: Negative for any head trauma, neck trauma, neck stiffness, photophobia, phonophobia, sinusitis, rhinitis. CARDIAC: Negative for any chest pain, dyspnea on exertion, paroxysmal nocturnal dyspnea, peripheral edema. PULMONARY: Negative for any shortness of breath, wheezing, COPD, or TB exposure. GASTROINTESTINAL: Negative for any abdominal pain, nausea, vomiting, bright red blood per rectum, melena. GENITOURINARY: Negative for any dysuria, hematuria, incontinence. INTEGUMENTARY: Negative for any rashes, cuts, insect bites. RHEUMATOLOGIC: Negative for any joint pains, photosensitive rashes, history of vasculitis or kidney problems. HEMATOLOGIC: Negative for any abnormal bruising, frequent infections or bleeding. Vital Signs (last 8hr) Date Time Temp Pulse Resp B/P (MAP) Pulse Ox O2 Delivery O2 Flow Rate FiO2 09/12/25 08:00 97.7 100 18 118/76 98 Room Air 09/12/25 04:02 97.9 103 18 134/79 98 Room Air PHYSICAL EXAM: GENERAL: Alert and oriented x 3. No acute distress. Well-nourished. EYES: EOMI. Anicteric. HENT: Moist mucous membranes. No scleral icterus. No cervical lymphadenopathy. LUNGS: Clear to auscultation bilaterally. No accessory muscle use. CARDIOVASCULAR: Regular rate and rhythm. No murmur. No JVD. ABDOMEN: Soft, non-tender and non-distended. No palpable masses. Ileostomy in place EXTREMITIES: No edema. Non-tender. SKIN: No rashes or lesions. Warm. NEUROLOGIC: No focal neurological deficits. CN II-XII grossly intact, but not individually tested. PSYCHIATRIC: Cooperative. Appropriate mood and affect. Current Medications Medications (Trade) Dose Ordered Sig/[facility] Route Start Time Stop Time Status Last Admin Dose Admin Apixaban (EliquIS) 5 mg BID PO 09/08/25 21:00 10/08/25 20:59 09/11/25 08:17 5 MG Apixaban (EliquIS) 10 mg BID PO 09/07/25 22:00 09/08/25 01:42 DC 09/07/25 22:06 10 MG Apixaban (EliquIS) 10 mg BID PO 09/08/25 09:30 09/08/25 10:13 DC Atorvastatin Calcium (LIPItor 10MG) 5 mg HS PO 09/05/25 21:00 10/05/25 20:59 09/10/25 20:25 5 MG Calcium Gluconate (Calcium Gluc 1gm Vial) 1 gm ONCE IV 08/29/25 09:30 08/29/25 09:23 DC Dextrose/Sodium Chloride 1,000 ml @ 0 mls/hr AD IV 08/29/25 12:30 08/29/25 16:05 DC Duloxetine HCl (CymbALTA 30 mg CAP) 30 mg BID PO 09/03/25 21:00 09/09/25 11:10 DC 09/09/25 10:37 30 MG Enoxaparin Sodium (Lovenox (Pharmacy To Dose)) 1 unit Q12H SQ 09/06/25 13:30 09/06/25 13:21 DC Enoxaparin Sodium (Lovenox 60mg) 60 mg Q12H SQ 09/06/25 13:30 09/07/25 15:03 DC 09/07/25 14:29 60 MG Folic Acid (FOLic ACID 1 MG TABLET) 1 mg DAILY PO 09/08/25 09:00 10/08/25 08:59 09/11/25 08:16 1 MG Home Med (Home Medication) (Medroxyprogesterone Acetate (Provera) 1 TAB) DAILY PO 09/06/25 09:00 10/06/25 08:59 Insulin Human Regular (humuLIN R 100 UNIT/ML 3ML) 5 unit ONCE IV 08/29/25 09:30 08/29/25 09:25 DC Insulin Human Regular (humuLIN R 100 UNIT/ML 3ML) INSULIN SLIDING SCAL... ACHS SQ 08/29/25 11:30 09/28/25 11:29 09/10/25 20:29 2 UNIT Insulin Human Regular 100 unit/ Sodium Chloride 101 ml @ 0 mls/hr PROTOCOL IV 08/29/25 12:30 08/29/25 16:05 DC Lactated Ringer's 1,000 ml @ 100 mls/hr Q10H IV 09/06/25 00:00 09/06/25 18:44 DC 09/06/25 08:35 100 MLS/HR Lactulose (Constulose 20gm/ 30ml Udcup) 20 gm BID PO 09/05/25 21:00 10/01/25 13:59 09/11/25 08:16 20 GM Lactulose (Constulose 20gm/ 30ml Udcup) 20 gm TID PO 09/01/25 14:00 09/05/25 10:44 DC 09/05/25 08:06 20 GM Magnesium Sulfate 50 ml @ 0 mls/hr PROTOCOL IV 08/29/25 12:30 08/29/25 16:05 DC Magnesium Sulfate 50 ml @ 0 mls/hr PROTOCOL IV 08/30/25 10:00 09/29/25 09:59 09/08/25 04:26 25 MLS/HR Magnesium Sulfate 50 ml @ 0 mls/hr PROTOCOL IV 09/02/25 13:30 09/02/25 13:04 DC Magnesium Sulfate 50 ml @ 0 mls/hr PROTOCOL IV 09/03/25 08:00 09/03/25 07:43 DC Meropenem (Merrem 500mg) 500 mg Q24H IVPB 08/29/25 10:00 08/31/25 09:59 DC 08/30/25 09:46 500 MG Meropenem (Merrem 500mg) 500 mg Q24H IVPB 08/31/25 23:30 09/10/25 02:29 DC 09/09/25 23:40 500 MG Midodrine (PROAMatine 5 MG TABLET) 5 mg BID PO 09/10/25 09:00 09/11/25 07:21 DC 09/10/25 21:42 5 MG Midodrine (PROAMatine 5 MG TABLET) 5 mg DAILY20 PO 09/11/25 20:00 09/12/25 09:00 Midodrine (PROAMatine 5 MG TABLET) 5 mg TID PO 09/08/25 21:00 09/10/25 08:05 DC 09/09/25 15:24 5 MG Midodrine (PROAMatine 5 MG TABLET) 10 mg BID PO 09/01/25 09:00 08/31/25 18:36 DC Midodrine (PROAMatine 5 MG TABLET) 10 mg TID PO 09/01/25 09:00 09/08/25 17:20 DC 09/08/25 16:16 10 MG Mirtazapine (REMeron 15 MG TAB) 7.5 mg HS PO 09/09/25 21:00 10/09/25 20:59 09/10/25 20:24 7.5 MG Norepinephrine Bitartrate 32 mg/ Sodium Chloride 250 ml @ 0 mls/hr Q0M STAT IV 08/29/25 21:01 08/29/25 21:07 DC 08/29/25 21:13 0 MLS/HR Octreotide Acetate 1250 mcg/ Sodium Chloride 250 ml @ 0 mls/hr PROTOCOL IV 08/29/25 08:30 09/01/25 10:32 DC 08/31/25 10:18 5 MLS/HR Pantoprazole Sodium (PROTonix 40MG INJ) 40 mg BID IVP 09/01/25 21:00 09/03/25 14:32 DC 09/03/25 09:16 40 MG Pantoprazole Sodium (PROTonix 40MG INJ) 40 mg BID IVP 09/06/25 09:00 10/06/25 08:59 09/11/25 08:16 40 MG Pantoprazole Sodium (PROTonix 40MG TAB) 40 mg DAILY PO 09/04/25 09:00 09/06/25 00:03 DC 09/05/25 08:06 40 MG Pantoprazole Sodium 80 mg/ Sodium Chloride 100 ml @ 10 mls/hr Q10H IV 08/29/25 08:30 09/01/25 10:32 DC 09/01/25 05:50 10 MLS/HR Pharmacy Profile Note (Pharmacy Communication) 1 each ONCE MISC 08/29/25 09:30 08/29/25 09:35 DC Pharmacy Profile Note (Pharmacy Communication) 1 each ONCE MISC 08/31/25 23:30 08/31/25 23:17 DC Psyllium Hydrophilic Mucilloid (Metamucil) 1 tbs TID PO 09/04/25 14:00 10/04/25 13:59 09/11/25 08:17 1 TBS Sodium Bicarbonate 150 meq/Dextrose 1,150 ml @ 125 mls/hr Q9H12M IVP 08/29/25 10:00 08/30/25 10:12 DC 08/30/25 08:07 125 MLS/HR Sodium Bicarbonate (Sodium Bicarbonate) 1,300 mg QID PO 09/10/25 17:00 10/10/25 16:59 09/11/25 08:16 1,300 MG Sodium Bicarbonate (Sodium Bicarbonate) 1,300 mg TID PO 09/07/25 14:00 09/08/25 18:00 DC 09/08/25 16:15 1,300 MG Sodium Bicarbonate (Sodium Bicarbonate) 1,300 mg TID PO 09/09/25 09:00 09/10/25 12:00 DC 09/10/25 10:31 1,300 MG Sodium Chloride 250 ml @ 0 mls/hr AD IV 08/29/25 17:30 09/28/25 17:29 Sodium Chloride 1,000 ml @ 0 mls/hr Q0M IV 08/29/25 16:00 08/29/25 16:03 DC Sodium Chloride 1,000 ml @ 0 mls/hr Q0M IV 08/29/25 16:00 09/01/25 08:01 DC 08/29/25 16:10 500 MLS/HR Sodium Chloride 1,000 ml @ 125 mls/hr Q8H IV 08/29/25 09:30 08/29/25 09:57 DC Sodium Chloride 1,000 ml @ 150 mls/hr Q6H40M IV 08/29/25 18:30 09/01/25 09:29 DC 08/31/25 16:16 150 MLS/HR Sodium Chloride 1,000 ml @ 200 mls/hr PROTOCOL IV 08/29/25 12:30 08/29/25 16:05 DC Sodium Chloride 1,000 ml @ 999 mls/hr Q1H1M IV 08/29/25 09:30 08/29/25 09:06 DC Thiamine HCl (Vitamin B-1) 200 mg Q12H IVP 08/29/25 09:30 09/02/25 09:30 DC 09/02/25 08:56 200 MG Vitamin B Complex (Vitamin B-12) 1,000 mcg DAILY PO 09/08/25 09:00 10/08/25 08:59 09/11/25 08:16 1,000 MCG LABORATORY: [ ] Hematology Labs: Test 09/12/25 04:33 Range/Units White Blood Count 5.8 4.8-10.8 K/uL Red Blood Count 3.12 L 4.00-5.50 MIL/uL Hemoglobin 9.7 L 12.0-16.0 g/dL Hematocrit 29.5 L 36-48 % Mean Corpuscular Volume 94.6 79-99 fL Mean Corpuscular Hemoglobin 31.1 27.0-33.0 pg Mean Corpuscular Hemoglobin Concent 32.9 32.0-36.0 g/dL Red Cell Distribution Width 18.8 H 11.0-15.5 % Platelet Count 243 130-400 K/uL Mean Platelet Volume 9.8 7.5-10.5 fL Immature Granulocyte % (Auto) 0.7 0-1 % Neutrophils (%) (Auto) 59.6 40.0-77.0 % Lymphocytes (%) (Auto) 26.6 21.0-51.0 % Monocytes (%) (Auto) 7.5 3.0-13.0 % Eosinophils (%) (Auto) 4.9 0.0-8.0 % Basophils (%) (Auto) 0.7 0.0-5.0 % Neutrophils # (Auto) 3.4 1.8-7.7 K/uL Lymphocytes # (Auto) 1.5 1.0-4.8 K/uL Monocytes # (Auto) 0.4 0.1-1.0 K/uL Eosinophils # (Auto) 0.28 0.00-0.70 K/uL Basophils # (Auto) 0.04 0.00-0.20 K/uL Absolute Immature Granulocyte (auto 0.04 0-1 K/uL Nucleated Red Blood Cells 0.0 0.0-0.19 % Chemistry Labs: Test 09/12/25 05:26 09/12/25 04:33 Range/Units Whole Blood Glucose 119 H 70-110 MG/DL Sodium Level 133 L 136-145 mmol/L Potassium Level 4.1 3.5-5.1 mmol/L Chloride Level 106 101-111 mmol/L Carbon Dioxide Level 20 L 21-32 mmol/L Blood Urea Nitrogen 14 7-18 mg/dL Creatinine 1.2 H 0.5-1.0 mg/dL Glomerular Filtration Rate Calc 53 >90 mL/min Random Glucose 115 H 70-105 mg/dL Total Calcium 9.0 8.5-10.1 mg/dL Total Bilirubin 0.6 0.2-1.0 mg/dL Aspartate Amino Transf (AST/SGOT) 56 H 10-37 U/L Alanine Aminotransferase (ALT/SGPT) 29 12-78 U/L Alkaline Phosphatase 141 H 50-136 U/L Total Protein 6.8 6.0-8.3 g/dL Albumin 2.5 L 3.5-5.0 g/dL DIAGNOSTICS / RADIOLOGY: [place] [address] IMAGING REPORT Signed PATIENT: DALLAS BUCHANAN MR#: [id number] : 1970 SEX: F AGE: 55 LOCATION: 3AH ORDER 2300 STATUS: ADM IN REPORT#: [id number] SERVICE 0600 REASON: EVALUATE LUQ PIGRTAIL FOR POSSIBLE REMOVAL ORDERING PHYSICIAN: FE BRODY MD PROCEDURE: ABDO WO - CT ABDOMEN W/O CONTRAST EXAM: CT ABDOMEN WITHOUT INTRAVENOUS CONTRAST Technique: Multislice helical computed tomography from the diaphragms through the inguinal region with thin-section axial images and coronal/sagittal reformations; dose reduction applied per ALA. CTDIvol 6.5 mGy; DLP 204.50 mGy???cm. Contrast: No intravenous contrast administered. Clinical Information: Evaluate left upper-quadrant pigtail catheter for possible removal. Comparison: CT abdomen without contrast 09/06 00:31 EST Findings: Lung bases: Residual trace left pleural effusion with adjacent atelectasis; previously described calcified right lower-lobe pulmonary nodule is not visualized on this limited abdominal coverage. Liver: Nodular hepatic contour consistent with cirrhosis; no focal hepatic lesion identified on this noncontrast study. Gallbladder and biliary tree: Multiple punctate calcifications along the gallbladder wall; no biliary ductal dilatation. Pancreas and spleen: Stable perisplenic fluid collection with an indwelling drainage catheter and adjacent mild fat stranding; pancreatic contour and attenuation are unremarkable. Adrenal glands: Unremarkable bilaterally. Kidneys and ureters: Normal size and morphology; no hydronephrosis or nephrolithiasis. Stomach and bowel: Stomach distended with food residue; right lumbar ileostomy with stable postsurgical bowel changes; no bowel obstruction identified. Peritoneum and mesentery: Stable mild mesenteric edema; interval resolution of the previously noted minimal free fluid along the greater curvature of the stomach; no new free fluid or free intraperitoneal air. Lymph nodes: No pathologic abdominopelvic lymphadenopathy. Vasculature: No abdominal aortic aneurysm. Abdominal wall/soft tissues: No focal collection aside from the described perisplenic drain. Osseous structures: Multilevel mild spondylosis; no acute osseous abnormality. Impression: * Stable perisplenic fluid collection with an indwelling drainage catheter and mild adjacent fat stranding???correlate with drain output, clinical status, and inflammatory markers to determine readiness for catheter removal; interval imaging or catheter study may be helpful if uncertainty persists. * Cirrhotic liver morphology. Recommend clinical and laboratory correlation and hepatology follow-up if not already established. * Gallbladder wall calcifications (punctate pattern) without biliary dilatation???correlate clinically; consider surgical consultation if porcelain gallbladder is suspected based on pattern and extent of calcification. * Residual trace left pleural effusion with adjacent atelectasis; stomach distention with food residue; right lumbar ileostomy with expected postsurgical changes; no new abdominopelvic free fluid or free air. * Compared with 09/06/2025 00:31 EST, the perisplenic collection is unchanged with the drain remaining in place, the previously described minimal perigastric free fluid has resolved, and the prior calcified right lower-lobe nodule is not visualized on this limited abdominal scan; otherwise, no significant interval change. /[facility] DICTATED BY: EDWIGE LEDESMA MD DATE: 09/09/251409 ELECTRONICALLY SIGNED BY: EDWIGE LEDESMA MD DATE: 09/09/251409 PATIENT: DALLAS BUCHANAN MR#: [id number] : 1970 SEX: F AGE: 55 LOCATION: 3AH ORDER 2351 STATUS: ADM IN REPORT#: [id number] SERVICE 2346 REASON: abdiominal pain ORDERING PHYSICIAN: CYNTHIA ALEXANDER [employer] PROCEDURE: ABDO WO - CT ABDOMEN W/O CONTRAST EXAMINATION CT Abdomen Without IV Contrast CLINICAL HISTORY Patient presents with abdominal pain. TECHNIQUE Axial computed tomography images of the abdomen were obtained without intravenous contrast. CONTRAST No IV contrast administered. COMPARISON 09/01/2025. FINDINGS: LUNG BASES: Residual trace left pleural effusion with adjacent atelectasis. Interval resolution of previously described mild right pleural effusion. Stable calcified nodule in the right lower lobe. LIVER: Nodular hepatic contour consistent with cirrhosis. GALLBLADDER AND BILE DUCTS: Multiple punctate calcifications in the gallbladder wall. No biliary ductal dilatation. PANCREAS AND SPLEEN: Stable perisplenic fluid collection with drainage catheter in situ and adjacent fat stranding. ADRENAL GLANDS: Unremarkable. KIDNEYS AND URETERS: Normal in size and morphology. No hydronephrosis or nephrolithiasis. STOMACH AND BOWEL: Stomach distended with food residue. Right lumbar ileostomy with stable postsurgical bowel changes. Uncomplicated colonic diverticula. A component of mild constipation. PERITONEUM: Stable mild mesenteric edema. Significant interval resolution of the previously demonstrated minimal free fluid along the greater curvature of the stomach. No new free fluid or free air. LYMPH NODES: No significant lymphadenopathy. VASCULATURE: No abdominal aortic aneurysm. BONES: Multilevel mild spondylosis. IMPRESSION: Nodular cirrhotic liver. Stable perisplenic fluid collection with drainage catheter in situ and adjacent fat stranding. Right lumbar ileostomy with stable postsurgical bowel changes. Residual trace left pleural effusion with adjacent atelectasis. Interval resolution of the right pleural effusion. Stable calcified right lower lobe pulmonary nodule. Stomach distended with food residue. Uncomplicated colonic diverticula with mild constipation. Stable mild mesenteric edema with interval resolution of previously described minimal free fluid. Multiple punctate calcifications in the gallbladder wall, likely cholesterolosis. /[facility] DICTATED BY: ELDON MILLER Jr., MD DATE: 09/06/25233 ELECTRONICALLY SIGNED BY: ELDON MILLER Jr., MD DATE: 09/06/25233 PATIENT: DALLAS BUCHANAN MR#: [id number] : 1970 SEX: F AGE: 55 LOCATION: 3AH ORDER 131 STATUS: ADM IN REPORT#: [id number] SERVICE 15 REASON: R/o DVT versus SVT ORDERING PHYSICIAN: SONJA PERALTA MD PROCEDURE: VENOUS UNI - US VENOUS DOPPLER UNILATERAL ADDENDUM REPORT ADDENDUM: Results were shared by telephone at 10:59am on 09-06-25 and acknowledged by Patients Nurse Ms. Britt Robert /[facility] EXAMINATION: SPECTRAL DOPPLER ULTRASOUND EXAMINATION OF THE RIGHT UPPER EXTREMITY VEINS. CLINICAL HISTORY: To rule out DVT. COMPARISON: None. TECHNIQUE: Grayscale, color, and spectral Doppler images of the right upper extremity veins are submitted. FINDINGS: The internal jugular, subclavian, basilic, and brachial veins are patent. These veins show normal flow with physiological changes of phasicity and augmentation. The right axillary vein and cephalic veins are non-compressible and there is no flow on augmentation. IMPRESSION: Acute deep vein thrombosis in the right axillary vein. Right cephalic vein thrombosis. There is no deep vein thrombosis in the remainder of the right upper extmreiyt, /[facility] DICTATED BY: TOBI LEAHY MD DATE: 09/06/25 115 ELECTRONICALLY SIGNED BY: DATE: EXAMINATION: SPECTRAL DOPPLER ULTRASOUND EXAMINATION OF THE RIGHT UPPER EXTREMITY VEINS. CLINICAL HISTORY: To rule out DVT. COMPARISON: None. TECHNIQUE: Grayscale, color, and spectral Doppler images of the right upper extremity veins are submitted. FINDINGS: The internal jugular, subclavian, basilic, and brachial veins are patent. These veins show normal flow with physiological changes of phasicity and augmentation. The right axillary vein and cephalic veins are non-compressible and there is no flow on augmentation. IMPRESSION: Acute deep vein thrombosis in the right axillary vein. Right cephalic vein thrombosis. There is no deep vein thrombosis in the remainder of the right upper extmreiyt, /[facility] DICTATED BY: TOBI LEAHY MD DATE: 09/06/25941 ELECTRONICALLY SIGNED BY: TOBI LEAHY MD DATE: 09/06/25941 PATIENT: DALLAS BUCHANAN MR#: [id number] : 1970 SEX: F AGE: 55 LOCATION: 3A ORDER 99 STATUS: ADM IN REPORT#: [id number] SERVICE 06 REASON: hypoxic ORDERING PHYSICIAN: LOBO RICKS PROCEDURE: CXR1VW - CHEST 1VW EXAM: CR Chest, 1 View (Portable, Supine). CLINICAL HISTORY: Chest pain. COMPARISON: CR Chest, 2 View ??? 09/01/2025 01:13 AM EDT. FINDINGS: LUNGS: Area of haziness in left lower zone-Remained stable. Rest of the lungs are clear. No focal consolidation, pulmonary edema, or acute infiltrate. PLEURAL SPACES: No pleural effusion or pneumothorax. MEDIASTINUM: Cardiac size and mediastinal contours within normal limits. No acute osseous abnormality. LINES/DEVICES: Monitoring leads noted. No new devices identified. IMPRESSION: Area of haziness in left lower zone likely airspace opacity-Stable compared to previous radiograph. /[facility] DICTATED BY: TOBI LEAHY MD DATE: 09/03/251137 ELECTRONICALLY SIGNED BY: TOBI LEAHY MD DATE: 09/03/251137 PATIENT: DALLAS BUCHANAN MR#: [id number] : 1970 SEX: F AGE: 55 LOCATION: 2CV ORDER 1231 STATUS: ADM IN REPORT#: [id number] SERVICE 1227 REASON: EVALUATE LUQ PIGRTAIL FOR POSSIBLE REMOVAL ORDERING PHYSICIAN: SUSAN JHAVERI MD PROCEDURE: ABDO WO - CT ABDOMEN W/O CONTRAST ADDENDUM REPORT ADDENDUM: Results were shared by telephone at 11:21 pm on 09-01-25 and acknowledged by Patient's Nurse Jabier Bangura. /[facility] EXAM: CT ABDOMEN WITHOUT INTRAVENOUS CONTRAST Technique: Multislice helical computed tomography of the abdomen was performed from the diaphragms through the iliac crests with axial images and coronal/sagittal reformations. Dose optimization per ALARA. Contrast: No intravenous contrast administered. Contrast Impression: Noncontrast technique limits assessment of enhancement-dependent pathology and characterization of fluid collections. Clinical Information: Evaluation of left upper quadrant pigtail drain for possible removal. Comparison: CT abdomen/pelvis without contrast dated 08/29/2025. Findings: Lung bases: Interval development of small bilateral pleural effusions with dependent subsegmental atelectasis in the lower lobes. Previously described tiny calcified nodules are not conspicuous on the current noncontrast images. Liver: Morphologic features of cirrhosis are unchanged. No focal hepatic lesion identified on this noncontrast study. Gallbladder and bile ducts: Decompressed gallbladder with a cholecystostomy tube in place, stable. No biliary ductal dilatation. Pancreas: Normal contour without peripancreatic inflammatory change. Spleen: Infrasplenic fluid collection adjacent to the splenic inferior pole measuring approximately 2.7 ??? 3.5 ??? 6.4 cm (previously 2.7 ??? 2.2 ??? 5.1 cm), with a pigtail drainage catheter in situ and mild adjacent fat stranding. Adrenal glands: Normal morphology bilaterally. Kidneys and ureters: Kidneys within normal size and contour; no hydronephrosis or hydroureter; no nephrolithiasis. Urinary bladder: Dueñas catheter in place with small intraluminal gas foci, likely iatrogenic; bladder otherwise unremarkable. Stomach and bowel: Right iliac fossa ileostomy defect ( 2.4 cm) and postoperative bowel changes, stable. No evidence of bowel obstruction, enteritis, or colitis. Peritoneum and mesentery: New minimal free fluid predominantly along the greater curvature of the stomach with mild mesenteric edema (anasarca). No free intraperitoneal air. Lymph nodes: No pathologic abdominopelvic lymphadenopathy. Vasculature: Abdominal aorta normal in caliber. Abdominal wall/soft tissues: Expected postoperative changes at the ostomy site; otherwise unremarkable. Osseous structures: No acute or aggressive osseous abnormality; mild degenerative changes in the visualized spine. Impression: * Infrasplenic collection with indwelling pigtail drain has increased in size compared with 08/29/2025 (now 2.7 ??? 3.5 ??? 6.4 cm from 2.7 ??? 2.2 ??? 5.1 cm) with mild surrounding fat stranding???ongoing collection persists. Drain removal is not advised at this time based on interval enlargement; recommend interventional radiology review for catheter position/patency, consideration of catheter upsizing or repositioning, and correlation with output and culture. * New small bilateral pleural effusions with dependent basilar atelectasis. Monitor clinically; consider diuresis or follow-up imaging as indicated. * Cirrhotic hepatic morphology, unchanged. * Decompressed gallbladder with cholecystostomy tube in place, stable; no biliary ductal dilatation. * Minimal ascites and mild mesenteric edema (anasarca), new from prior. * Dueñas catheter with small intravesical gas, likely iatrogenic. * No bowel obstruction, hydronephrosis, or nephrolithiasis identified. /[facility] DICTATED BY: EDWIGE LEDESMA MD DATE: 09/01/25 3873 ELECTRONICALLY SIGNED BY: DATE: EXAM: CT ABDOMEN WITHOUT INTRAVENOUS CONTRAST Technique: Multislice helical computed tomography of the abdomen was performed from the diaphragms through the iliac crests with axial images and coronal/sagittal reformations. Dose optimization per ALARA. Contrast: No intravenous contrast administered. Contrast Impression: Noncontrast technique limits assessment of enhancement-dependent pathology and characterization of fluid collections. Clinical Information: Evaluation of left upper quadrant pigtail drain for possible removal. Comparison: CT abdomen/pelvis without contrast dated 08/29/2025. Findings: Lung bases: Interval development of small bilateral pleural effusions with dependent subsegmental atelectasis in the lower lobes. Previously described tiny calcified nodules are not conspicuous on the current noncontrast images. Liver: Morphologic features of cirrhosis are unchanged. No focal hepatic lesion identified on this noncontrast study. Gallbladder and bile ducts: Decompressed gallbladder with a cholecystostomy tube in place, stable. No biliary ductal dilatation. Pancreas: Normal contour without peripancreatic inflammatory change. Spleen: Infrasplenic fluid collection adjacent to the splenic inferior pole measuring approximately 2.7 ??? 3.5 ??? 6.4 cm (previously 2.7 ??? 2.2 ??? 5.1 cm), with a pigtail drainage catheter in situ and mild adjacent fat stranding. Adrenal glands: Normal morphology bilaterally. Kidneys and ureters: Kidneys within normal size and contour; no hydronephrosis or hydroureter; no nephrolithiasis. Urinary bladder: Dueñas catheter in place with small intraluminal gas foci, likely iatrogenic; bladder otherwise unremarkable. Stomach and bowel: Right iliac fossa ileostomy defect ( 2.4 cm) and postoperative bowel changes, stable. No evidence of bowel obstruction, enteritis, or colitis. Peritoneum and mesentery: New minimal free fluid predominantly along the greater curvature of the stomach with mild mesenteric edema (anasarca). No free intraperitoneal air. Lymph nodes: No pathologic abdominopelvic lymphadenopathy. Vasculature: Abdominal aorta normal in caliber. Abdominal wall/soft tissues: Expected postoperative changes at the ostomy site; otherwise unremarkable. Osseous structures: No acute or aggressive osseous abnormality; mild degenerative changes in the visualized spine. Impression: * Infrasplenic collection with indwelling pigtail drain has increased in size compared with 08/29/2025 (now 2.7 ??? 3.5 ??? 6.4 cm from 2.7 ??? 2.2 ??? 5.1 cm) with mild surrounding fat stranding???ongoing collection persists. Drain removal is not advised at this time based on interval enlargement; recommend interventional radiology review for catheter position/patency, consideration of catheter upsizing or repositioning, and correlation with output and culture. * New small bilateral pleural effusions with dependent basilar atelectasis. Monitor clinically; consider diuresis or follow-up imaging as indicated. * Cirrhotic hepatic morphology, unchanged. * Decompressed gallbladder with cholecystostomy tube in place, stable; no biliary ductal dilatation. * Minimal ascites and mild mesenteric edema (anasarca), new from prior. * Dueñas catheter with small intravesical gas, likely iatrogenic. * No bowel obstruction, hydronephrosis, or nephrolithiasis identified. /[facility] DICTATED BY: EDWIGE LEDESMA MD DATE: 09/01/252258 ELECTRONICALLY SIGNED BY: EDWIGE LEDESMA MD DATE: 09/01/252258 PATIENT: DALLAS BUCHANAN MR#: [id number] : 1970 SEX: F AGE: 55 LOCATION: 2CV ORDER 1130 STATUS: ADM IN REPORT#: [id number] SERVICE [id number] REASON: Left lower lung lobe opacities ORDERING PHYSICIAN: SONJA PERALTA MD PROCEDURE: CHEST WO - CT CHEST W/O CONTRAST EXAM: CT CHEST WITHOUT INTRAVENOUS CONTRAST Technique: Helical computed tomography of the chest from thoracic inlet through the upper abdomen without intravenous contrast, with axial images and coronal/sagittal reformations. Dose optimization performed in accordance with ALARA. Clinical Information: Left lower lung lobe opacities. Comparison: Chest radiograph dated 09/01/2025 at 05:46 EDT. Findings: Soft tissues: Unremarkable. Lungs and large airways: Central airways are patent. Subsegmental consolidation in the posterior segments of both lower lobes. Additional subsegmental consolidation in the superior segment of the left upper lobe. Linear atelectatic bands in the superior lingular segment and posterior segment of the left upper lobe. A calcified pulmonary nodule measures 5 mm in the right lower lobe (series 3, image 29). Pleura: Minimal bilateral pleural effusions. No pneumothorax. Heart and pericardium: Cardiac size within normal limits. No pericardial effusion. Aorta: Normal course and caliber on this noncontrast study. Pulmonary arteries: Evaluation limited without contrast; no large central filling defect is seen on this noncontrast exam. Lymph nodes: No pathologically enlarged mediastinal or hilar lymph nodes. Mediastinum and toya: No mass identified. Chest wall and lower neck: No acute abnormality. Bones/joints: No acute osseous abnormality. Upper abdomen: Visualized portions without acute abnormality; detailed abdominal findings are reported separately. Impression: * Subsegmental consolidation in the posterior segments of both lower lobes and in the superior segment of the left upper lobe with minimal bilateral pleural effusions???most compatible with multifocal atelectasis versus infection/aspiration in the appropriate clinical context. Recommend clinical correlation and short-interval follow-up chest imaging to document resolution. * Benign-appearing calcified pulmonary nodule in the right lower lobe measuring 5 mm (series 3, image 29), consistent with a granuloma; no additional suspicious nodules identified. * No pneumothorax or acute cardiomediastinal abnormality identified on this noncontrast examination. /[facility] DICTATED BY: EDWIGE LEDESMA MD DATE: 09/01/252255 ELECTRONICALLY SIGNED BY: EDWIGE LEDESMA MD DATE: 09/01/252255 PATIENT: DALLAS BUCHANAN MR#: [id number] : 1970 SEX: F AGE: 55 LOCATION: 2CV ORDER 99 STATUS: ADM IN REPORT#: [id number] SERVICE 0600 REASON: hypoxic ORDERING PHYSICIAN: LOBO RICKS PROCEDURE: CXR1VW - CHEST 1VW EXAM: CR Chest, 1 View (Portable, Supine). CLINICAL HISTORY: Chest pain. COMPARISON: CR Chest, 2 View ??? 08/31/2025 01:13 AM EDT. FINDINGS: LUNGS: Mild prominence of bronchovascular markings in bilateral lower zone. Area of haziness in left lower zone. Lungs are clear. No focal consolidation, pulmonary edema, or acute infiltrate. PLEURAL SPACES: No pleural effusion or pneumothorax. MEDIASTINUM: Cardiac size and mediastinal contours within normal limits. Right internal jugular central venous catheter remains in similar position with the tip projecting over the distal superior vena cava, unchanged from prior. BONES: No acute osseous abnormality. LINES/DEVICES: Right IJ central venous catheter as described. Monitoring leads noted. No new devices identified. IMPRESSION: * Stable position of right IJ central venous catheter with tip at distal SVC. * Area of haziness in left lower zone likely airspace opacity-New finding compared to previous radiograph. * Mild prominence of bronchovascular markings in bilateral lower zone-New finding compared to previous radiograph. Signed By: EDWIGE LEDESMA M.D. /[facility] DICTATED BY: TOBI LEAHY MD DATE: 09/01/251518 ELECTRONICALLY SIGNED BY: TOBI LEAHY MD DATE: 09/01/251518 PATIENT: DALLAS BUCHANAN MR#: [id number] : 1970 SEX: F AGE: 55 LOCATION: 2CV ORDER 230 STATUS: ADM IN REPORT#: [id number] SERVICE 0600 REASON: hypoxic ORDERING PHYSICIAN: LOBO RICKS PROCEDURE: CXR1VW - CHEST 1VW EXAM: CR Chest, 1 View (Portable, Supine). CLINICAL HISTORY: Chest pain. COMPARISON: CR Chest, 2 View ??? 08/30/2025 01:13 AM EDT. FINDINGS: LUNGS: Lungs are clear. No focal consolidation, pulmonary edema, or acute infiltrate. PLEURAL SPACES: No pleural effusion or pneumothorax. MEDIASTINUM: Cardiac size and mediastinal contours within normal limits. Right internal jugular central venous catheter remains in similar position with the tip projecting over the distal superior vena cava, unchanged from prior. BONES: No acute osseous abnormality. LINES/DEVICES: Right IJ central venous catheter as described. Monitoring leads noted. No new devices identified. IMPRESSION: * Stable position of right IJ central venous catheter with tip at distal SVC. * No pneumothorax or acute cardiopulmonary abnormality. * No significant interval change compared with 08/30/2025 . /[facility] DICTATED BY: EDWIGE LEDESMA MD DATE: 08/31/251851 ELECTRONICALLY SIGNED BY: EDWIGE LEDESMA MD DATE: 08/31/251851 PATIENT: DALLAS BUCHANAN MR#: [id number] : 1970 SEX: F AGE: 55 LOCATION: 2CV ORDER 8 STATUS: ADM IN REPORT#: [id number] SERVICE 170 REASON: severe renal failure ORDERING PHYSICIAN: BRADEN CONTRERAS MD PROCEDURE: RENAL - US RENAL SONOGRAM EXAM: RENAL AND URINARY BLADDER ULTRASOUND Technique: Grayscale and color Doppler sonography of both kidneys and the urinary bladder was performed. Study quality is adequate. Evaluation of the bladder and ureteral jets is limited by decompression from an indwelling catheter. Clinical Information: Severe renal failure. Findings: Right kidney: Measures 10.3 ??? 5.3 ??? 4.2 centimeters. Renal cortical thickness and echogenicity are within expected limits for technique. No focal mass is identified. No hydronephrosis. No renal calculi. No perinephric fluid collection. Left kidney: Measures 11.0 ??? 4.8 ??? 3.2 centimeters. The renal parenchyma is diffusely increased in echogenicity relative to the adjacent liver and spleen. No focal mass is identified. No hydronephrosis. No renal calculi. No perinephric fluid collection. Urinary bladder: Decompressed with a Dueñas catheter in situ. Bladder wall measures approximately 3 millimeters, which may appear relatively thick due to underdistention. No intraluminal mass or debris is identified on the limited evaluation. Impression: * Left kidney demonstrates increased parenchymal echogenicity, a nonspecific finding commonly associated with medical renal disease in the setting of renal failure. * No hydronephrosis or renal calculi identified bilaterally. * Decompressed urinary bladder with Dueñas catheter in place; apparent wall thickening likely related to underdistention. /[facility] DICTATED BY: EDWIGE LEDESMA MD DATE: 08/29/252248 ELECTRONICALLY SIGNED BY: EDWIGE LEDESMA MD DATE: 08/29/252248 PATIENT: DALLAS BUCHANAN MR#: [id number] : 1970 SEX: F AGE: 55 LOCATION: 2CV ORDER 1540 STATUS: ADM IN REPORT#: [id number] SERVICE 1539 REASON: central line placement ORDERING PHYSICIAN: LOBO RICKS PROCEDURE: CXR1VW - CHEST 1VW EXAM: CR Chest, 2 View. CLINICAL HISTORY: central line placement COMPARISON: None provided. FINDINGS: Right IJ central venous catheter tip projects at the distal SVC. Right peripheral line overlies expected location of the right axillary vessels. LUNGS: The lungs show no infiltrate or other acute finding. Mild left basilar atelectasis. PLEURAL SPACES: No pleural effusion or pneumothorax. MEDIASTINUM: Cardiac size and mediastinal contours within normal limits. BONES: No aggressive appearing osseous lesion seen. Pigtail drainage catheter overlies the right upper quadrant. IMPRESSION: 1. Right IJ central venous catheter tip appropriately positioned in the distal SVC. 2. No acute cardiopulmonary findings. /[facility] DICTATED BY: ELDON MILLER Jr., MD DATE: 08/29/251744 ELECTRONICALLY SIGNED BY: ELDON MILLER Jr., MD DATE: 08/29/251744 PATIENT: DALLAS BUCHANAN MR#: [id number] : 1970 SEX: F AGE: 55 LOCATION: 2CV ORDER 9 STATUS: ADM IN REPORT#: [id number] SERVICE 7 REASON: coffee ground emesis, hx of abdominal drain, nausea, vomiting, hx of cirrho ORDERING PHYSICIAN: BRADEN CONTRERAS MD PROCEDURE: ABD PEL WO - CT ABDOMEN/PELVIS W/O CONTRAST EXAM: CT Abdomen and Pelvis Without IV contrast CLINICAL HISTORY: coffee ground emesis, hx of abdominal drain, nausea, vomiting, hx of cirrho TECHNIQUE: Axial computed tomography images of the abdomen and pelvis without intravenous contrast. CONTRAST: No IV contrast. COMPARISON: Study dated 08/23/25. FINDINGS: LUNG BASES: Tiny calcified nodules in the posterior basal segment of the right lower lobe. There is mild dependent airspace disease within the bilateral lower lobes that is presumed to reflect atelectasis. No pleural effusions are seen. LIVER: There is cirrhotic hepatic morphology. Several small esophageal varices are noted. GALLBLADDER AND BILE DUCTS: The gallbladder is decompressed with a cholecystostomy tube in place. No biliary ductal dilatation is evident. PANCREAS: Unremarkable. SPLEEN: 2.7 x 2.2 x 5.1 cm infrasplenic collection with adjacent fat stranding and pigtail tube in place. ADRENAL GLANDS: Unremarkable. KIDNEYS, URETERS, AND BLADDER: The kidneys appear within normal limits. There is no hydronephrosis or hydroureter. No urinary calculi are seen. Dueñas's bulb in the urinary bladder with few air foci. STOMACH AND BOWEL: 2.4 cm ileostomy defect in the right iliac fossa and postoperative changes in the bowel loops. No evidence of bowel obstruction. No evidence suggesting enteritis or colitis. APPENDIX: No evidence of acute appendicitis on CT examination. PERITONEUM: No free fluid. No free air. LYMPH NODES: No lymphadenopathy is evident. REPRODUCTIVE: Unremarkable as visualized. VASCULATURE: No evidence of abdominal aortic aneurysm. BONES: No aggressive appearing osseous lesion. No acute osseous pathology evident. Mild degenerative changes in the spine. IMPRESSION: 1. Cirrhotic hepatic morphology. Several small esophageal varices are noted. 2. 2.7 x 2.2 x 5.1 cm infrasplenic collection with adjacent fat stranding and pigtail tube in place. 3. Cholecystostomy tube in decompressed gallbladder. 4. Ileostomy in right iliac fossa with postoperative changes. /[facility] DICTATED BY: ELDON MILLER Jr., MD DATE: 08/29/251619 ELECTRONICALLY SIGNED BY: ELDON MILLER Jr., MD DATE: 08/29/251619 PATIENT: DALLAS BUCHANAN MR#: [id number] : 1970 SEX: F AGE: 55 LOCATION: EDHIP ORDER 6 STATUS: ADM IN REPORT#: [id number] SERVICE 0806 REASON: sob ORDERING PHYSICIAN: MILAD WYNN MD PROCEDURE: CXR1VW - CHEST 1VW EXAM: CR Chest, 1 View. CLINICAL HISTORY: sob COMPARISON: None provided. FINDINGS: LUNGS: There is no mass, infiltrate, or acute pulmonary abnormality. Mild left basilar atelectasis and/or parenchymal scarring. PLEURAL SPACES: No evidence of pleural effusion or pneumothorax. MEDIASTINUM: Cardiac size and mediastinal contours within normal limits. BONES: No aggressive appearing osseous lesion seen. IMPRESSION: No acute cardiopulmonary pathology is evident. /[facility] DICTATED BY: ELDON MILLER Jr., MD DATE: 08/29/251103 ELECTRONICALLY SIGNED BY: ELDON MILLER JDATE: 08/29/251103 ASSESSMENT: Severe hyperkalemia Anemia Acute renal failure Hyponatremia Acute upper GI bleeding- Hematemesis, dark output from ileostomy bag, POA, Improving Acute DVT of right axillary vein and right cephalic vein High output from ileostomy bag, not POA Hemorrhagic shock versus hypovolemic shock, POA, Resolved Hypovolemic hypochloremic hyponatremia, POA, Resolved Severe hyperkalemia, POA, Resolved Hyperammonemia, POA, Improving Lactic acidosis, POA, Resolved Hyperphosphatemia, POA, Resolved Starvation Ketoacidosis, POA Rule out occult sepsis, POA Recent extended hospitalization in [facility], 07/20/2025- 08/25/2025 for sepsis, acute abdomen, POA Severe Dehydration, POA, Improving History of esophageal varices, POA Acute Decompensated liver cirrhosis, POA Hx of acute cholecystitis, s/p cholecystostomy tube placement on 08/02/2025. Perisplenic abscess, s/p CT-guided drainage placement on 08/09/2025. 2.7 x 2.2 x 5.1 cm infrasplenic collection History of gastritis, POA Hx of Generalized peritonitis with ESBL E coli infection, POA Moderate Protein calorie malnutrition POA History of bilious peritonitis with small colonic anastomosis perforation s/p diagnostic laparoscopy, abdominal washout, ileostomy creation by Dr. Jhaveri, Hx of DM II, POA Recent colovesical fistula repair with sigmoid colon resection and anastomosis on PLAN: Labs, diagnostic, radiologic exams reviewed and interpreted by myself and supervising physician. We have reviewed external records in detail Pending EGD Require close monitoring of renal function and electrolytes Order CBC, CMP, and electrolytes in am Continue with antibiotics BiPAP as necessary, for respiratory distress Monitor blood pressure adjust medication doses as needed Avoid hypotensive episodes May use Dilaudid 0.5 mg IV every 6 hours as needed for severe pain Monitor blood sugars Strict intake, output, and daily weight should be monitored Please renally adjust medications Avoid nephrotoxic and nonsteroidal drugs Avoid contrast if possible Will continue to monitor renal function, anemia, electrolytes Treatment plan discussed with patient Questions were answered We have discussed with the other team physicians in detail about the care plan We will continue to monitor the patient closely ATTESTATION BY PHYSICIAN I have seen and examined the patient. I reviewed the documentation, medical decision making, and treatment plan as noted by the mid-level provider above. I agree with the findings and plan of care. CIELO PORTILLO MD, [facility] Sep 12, 2025 09:58
--- NOTE | 2025-09-12 10:40 | NUR ---
TELEPSYCH TELEPSYCH MEETING COMPLETED THIS MORNING.
--- NOTE | 2025-09-12 15:41 | PN ---
GENERAL SURGERY PROGRESS NOTE Date/Time Patient Seen: [ 09/12/2025 14:00] Interval History: This 55-year-old female seen in her room resting comfortably, daughter at bedside Eliquis stopped for the next 3 days, EGD planned for Saturday No bloody stools from ileostomy reported today Maintaining stable H&H at 9.7 and 29.8 WBCs 5.8 Patient states lactulose 3 times a day is causing her to have more watery stools, would like dose decreased Daughter states patient is being given thickened liquids, which patient does not like, so she has not been drinking fluids No other acute events reported at this time Patient tolerating soft diet Physical exam General: Awake alert and oriented Heart: Regular rate and rhythm} Lungs: Clear to auscultation no distress Abdomen: Soft, nontender, nondistended ostomy productive with healthy stoma, left upper quadrant percutaneous drain in place Assessment and Plan: Eliquis has been stopped, GI we will be doing EGD on Saturday Continue with left upper quadrant percutaneous drain, monitoring strict output DC thickener Decrease lactulose to q.day Decreased Metamucil to b.i.d. Patient encouraged to increase water/fluid intake since GFR went down to 53 from 75 Repeat labs in a.m. including ammonia level No surgical intervention at this time Surgical team will continue to follow Dr. Gann to be updated in patient's status Surgical case has been discussed with my supervising physician in the above plan was formulated and agreed upon We appreciate the hospitalist team for us to participate in patient's care. Greater than 45 minutes of time spent patient, reviewing chart, working on documentation Current Medications Medications (Trade) Dose Ordered Sig/Gregory Route Start Time Stop Time Status Last Admin Dose Admin Apixaban (EliquIS) 5 mg BID PO 09/08/25 21:00 10/08/25 20:59 Hold 09/11/25 20:32 5 MG Apixaban (EliquIS) 10 mg BID PO 09/07/25 22:00 09/08/25 01:42 DC 09/07/25 22:06 10 MG Apixaban (EliquIS) 10 mg BID PO 09/08/25 09:30 09/08/25 10:13 DC Atorvastatin Calcium (LIPItor 10MG) 5 mg HS PO 09/05/25 21:00 10/05/25 20:59 09/11/25 20:31 5 MG Calcium Gluconate (Calcium Gluc 1gm Vial) 1 gm ONCE IV 08/29/25 09:30 08/29/25 09:23 DC Dextrose/Sodium Chloride 1,000 ml @ 0 mls/hr AD IV 08/29/25 12:30 08/29/25 16:05 DC Duloxetine HCl (CymbALTA 30 mg CAP) 30 mg BID PO 09/03/25 21:00 09/09/25 11:10 DC 09/09/25 10:37 30 MG Enoxaparin Sodium (Lovenox (Pharmacy To Dose)) 1 unit Q12H SQ 09/06/25 13:30 09/06/25 13:21 DC Enoxaparin Sodium (Lovenox 60mg) 60 mg Q12H SQ 09/06/25 13:30 09/07/25 15:03 DC 09/07/25 14:29 60 MG Folic Acid (FOLic ACID 1 MG TABLET) 1 mg DAILY PO 09/08/25 09:00 10/08/25 08:59 09/12/25 08:13 1 MG Home Med (Home Medication) (Medroxyprogesterone Acetate (Provera) 1 TAB) DAILY PO 09/06/25 09:00 10/06/25 08:59 Insulin Human Regular (humuLIN R 100 UNIT/ML 3ML) 5 unit ONCE IV 08/29/25 09:30 08/29/25 09:25 DC Insulin Human Regular (humuLIN R 100 UNIT/ML 3ML) INSULIN SLIDING SCAL... ACHS SQ 08/29/25 11:30 09/28/25 11:29 09/12/25 12:49 2 UNIT Insulin Human Regular 100 unit/ Sodium Chloride 101 ml @ 0 mls/hr PROTOCOL IV 08/29/25 12:30 08/29/25 16:05 DC Lactated Ringer's 1,000 ml @ 100 mls/hr Q10H IV 09/06/25 00:00 09/06/25 18:44 DC 09/06/25 08:35 100 MLS/HR Lactulose (Constulose 20gm/ 30ml Udcup) 20 gm BID PO 09/05/25 21:00 10/01/25 13:59 09/11/25 08:16 20 GM Lactulose (Constulose 20gm/ 30ml Udcup) 20 gm TID PO 09/01/25 14:00 09/05/25 10:44 DC 09/05/25 08:06 20 GM Magnesium Sulfate 50 ml @ 0 mls/hr PROTOCOL IV 08/29/25 12:30 08/29/25 16:05 DC Magnesium Sulfate 50 ml @ 0 mls/hr PROTOCOL IV 08/30/25 10:00 09/29/25 09:59 09/08/25 04:26 25 MLS/HR Magnesium Sulfate 50 ml @ 0 mls/hr PROTOCOL IV 09/02/25 13:30 09/02/25 13:04 DC Magnesium Sulfate 50 ml @ 0 mls/hr PROTOCOL IV 09/03/25 08:00 09/03/25 07:43 DC Meropenem (Merrem 500mg) 500 mg Q24H IVPB 08/29/25 10:00 08/31/25 09:59 DC 08/30/25 09:46 500 MG Meropenem (Merrem 500mg) 500 mg Q24H IVPB 08/31/25 23:30 09/10/25 02:29 DC 09/09/25 23:40 500 MG Midodrine (PROAMatine 5 MG TABLET) 5 mg BID PO 09/10/25 09:00 09/11/25 07:21 DC 09/10/25 21:42 5 MG Midodrine (PROAMatine 5 MG TABLET) 5 mg DAILY20 PO 09/11/25 20:00 09/12/25 09:00 DC 09/11/25 20:31 5 MG Midodrine (PROAMatine 5 MG TABLET) 5 mg TID PO 09/08/25 21:00 09/10/25 08:05 DC 09/09/25 15:24 5 MG Midodrine (PROAMatine 5 MG TABLET) 10 mg BID PO 09/01/25 09:00 08/31/25 18:36 DC Midodrine (PROAMatine 5 MG TABLET) 10 mg TID PO 09/01/25 09:00 09/08/25 17:20 DC 09/08/25 16:16 10 MG Mirtazapine (REMeron 15 MG TAB) 7.5 mg HS PO 09/09/25 21:00 09/12/25 11:05 DC 09/11/25 20:31 7.5 MG Mirtazapine (REMeron 15 MG TAB) 15 mg HS PO 09/12/25 21:00 10/12/25 20:59 Norepinephrine Bitartrate 32 mg/ Sodium Chloride 250 ml @ 0 mls/hr Q0M STAT IV 08/29/25 21:01 08/29/25 21:07 DC 08/29/25 21:13 0 MLS/HR Octreotide Acetate 1250 mcg/ Sodium Chloride 250 ml @ 0 mls/hr PROTOCOL IV 08/29/25 08:30 09/01/25 10:32 DC 08/31/25 10:18 5 MLS/HR Pantoprazole Sodium (PROTonix 40MG INJ) 40 mg BID IVP 09/01/25 21:00 09/03/25 14:32 DC 09/03/25 09:16 40 MG Pantoprazole Sodium (PROTonix 40MG INJ) 40 mg BID IVP 09/06/25 09:00 10/06/25 08:59 09/12/25 08:13 40 MG Pantoprazole Sodium (PROTonix 40MG TAB) 40 mg DAILY PO 09/04/25 09:00 09/06/25 00:03 DC 09/05/25 08:06 40 MG Pantoprazole Sodium 80 mg/ Sodium Chloride 100 ml @ 10 mls/hr Q10H IV 08/29/25 08:30 09/01/25 10:32 DC 09/01/25 05:50 10 MLS/HR Pharmacy Profile Note (Pharmacy Communication) 1 each ONCE MISC 08/29/25 09:30 08/29/25 09:35 DC Pharmacy Profile Note (Pharmacy Communication) 1 each ONCE MISC 08/31/25 23:30 08/31/25 23:17 DC Psyllium Hydrophilic Mucilloid (Metamucil) 1 tbs TID PO 09/04/25 14:00 10/04/25 13:59 09/11/25 20:32 1 TBS Sodium Bicarbonate 150 meq/Dextrose 1,150 ml @ 125 mls/hr Q9H12M IVP 08/29/25 10:00 08/30/25 10:12 DC 08/30/25 08:07 125 MLS/HR Sodium Bicarbonate (Sodium Bicarbonate) 1,300 mg QID PO 09/10/25 17:00 10/10/25 16:59 09/12/25 13:57 1,300 MG Sodium Bicarbonate (Sodium Bicarbonate) 1,300 mg TID PO 09/07/25 14:00 09/08/25 18:00 DC 09/08/25 16:15 1,300 MG Sodium Bicarbonate (Sodium Bicarbonate) 1,300 mg TID PO 09/09/25 09:00 09/10/25 12:00 DC 09/10/25 10:31 1,300 MG Sodium Chloride 250 ml @ 0 mls/hr AD IV 08/29/25 17:30 09/28/25 17:29 Sodium Chloride 1,000 ml @ 0 mls/hr Q0M IV 08/29/25 16:00 08/29/25 16:03 DC Sodium Chloride 1,000 ml @ 0 mls/hr Q0M IV 08/29/25 16:00 09/01/25 08:01 DC 08/29/25 16:10 500 MLS/HR Sodium Chloride 1,000 ml @ 125 mls/hr Q8H IV 08/29/25 09:30 08/29/25 09:57 DC Sodium Chloride 1,000 ml @ 150 mls/hr Q6H40M IV 08/29/25 18:30 09/01/25 09:29 DC 08/31/25 16:16 150 MLS/HR Sodium Chloride 1,000 ml @ 200 mls/hr PROTOCOL IV 08/29/25 12:30 08/29/25 16:05 DC Sodium Chloride 1,000 ml @ 999 mls/hr Q1H1M IV 08/29/25 09:30 08/29/25 09:06 DC Thiamine HCl (Vitamin B-1) 200 mg Q12H IVP 08/29/25 09:30 09/02/25 09:30 DC 09/02/25 08:56 200 MG Vitamin B Complex (Vitamin B-12) 1,000 mcg DAILY PO 09/08/25 09:00 10/08/25 08:59 09/12/25 08:12 1,000 MCG Vital Signs (last 8hr) Date Time Temp Pulse Resp B/P (MAP) Pulse Ox O2 Delivery O2 Flow Rate FiO2 09/12/25 12:00 97.5 85 18 130/55 94 Room Air 09/12/25 08:00 97.7 100 18 118/76 98 Room Air 09/12/25 08:00 98 Room Air* 0 21 Laboratory: [ ] Hematology Labs: Test 09/12/25 04:33 Range/Units White Blood Count 5.8 4.8-10.8 K/uL Red Blood Count 3.12 L 4.00-5.50 MIL/uL Hemoglobin 9.7 L 12.0-16.0 g/dL Hematocrit 29.5 L 36-48 % Mean Corpuscular Volume 94.6 79-99 fL Mean Corpuscular Hemoglobin 31.1 27.0-33.0 pg Mean Corpuscular Hemoglobin Concent 32.9 32.0-36.0 g/dL Red Cell Distribution Width 18.8 H 11.0-15.5 % Platelet Count 243 130-400 K/uL Mean Platelet Volume 9.8 7.5-10.5 fL Immature Granulocyte % (Auto) 0.7 0-1 % Neutrophils (%) (Auto) 59.6 40.0-77.0 % Lymphocytes (%) (Auto) 26.6 21.0-51.0 % Monocytes (%) (Auto) 7.5 3.0-13.0 % Eosinophils (%) (Auto) 4.9 0.0-8.0 % Basophils (%) (Auto) 0.7 0.0-5.0 % Neutrophils # (Auto) 3.4 1.8-7.7 K/uL Lymphocytes # (Auto) 1.5 1.0-4.8 K/uL Monocytes # (Auto) 0.4 0.1-1.0 K/uL Eosinophils # (Auto) 0.28 0.00-0.70 K/uL Basophils # (Auto) 0.04 0.00-0.20 K/uL Absolute Immature Granulocyte (auto 0.04 0-1 K/uL Nucleated Red Blood Cells 0.0 0.0-0.19 % Chemistry Labs: Test 09/12/25 11:27 09/12/25 04:33 Range/Units Whole Blood Glucose 182 #H 70-110 MG/DL Sodium Level 133 L 136-145 mmol/L Potassium Level 4.1 3.5-5.1 mmol/L Chloride Level 106 101-111 mmol/L Carbon Dioxide Level 20 L 21-32 mmol/L Blood Urea Nitrogen 14 7-18 mg/dL Creatinine 1.2 H 0.5-1.0 mg/dL Glomerular Filtration Rate Calc 53 >90 mL/min Random Glucose 115 H 70-105 mg/dL Total Calcium 9.0 8.5-10.1 mg/dL Total Bilirubin 0.6 0.2-1.0 mg/dL Aspartate Amino Transf (AST/SGOT) 56 H 10-37 U/L Alanine Aminotransferase (ALT/SGPT) 29 12-78 U/L Alkaline Phosphatase 141 H 50-136 U/L Total Protein 6.8 6.0-8.3 g/dL Albumin 2.5 L 3.5-5.0 g/dL Diagnostics / Radiology: [Copy/Paste Echos/Imaging Report here] ATTESTATION BY PHYSICIAN I have seen and examined the patient. I reviewed the documentation, medical decision making, and treatment plan as noted by the mid-level provider above. I agree with the findings and plan of care. MD LEANA ISRAEL LETICIA A [facility] Sep 12, 2025 15:41
[2025-09-12] MEDS ORDERED: LACTULOSE 20 GM/30 ML UDCUP PO SCH (17:00)
[2025-09-12] MEDS: PSYLLIUM SEED 1 EACH PACKET PO SCH (17:19)
--- NOTE | 2025-09-12 19:47 | PN ---
[facility] PROGRESS NOTE Date of Service: Sep 12, 2025 Time of Service: 19:36 SUBJECTIVE: As per admission notes "50-year-old female with underlying history of type 2 diabetes mellitus, history of liver cirrhosis, prior history of esophageal varices requiring banding in May,, history of robotic sigmoid resection with takedown of colovesical fistula who was recently hospitalized in [facility] from 07/20/2025 - 08/25/2025 patient was found to have bilious peritonitis with 2 mm perforation of colonic anastomosis requiring diagnostic laparoscopy, abdominal washout and drain placement with creation of diverting loop ileostomy. Patient was hospitalized for about one month and subsequently required IR guided drain placement as well. She was just discharged from the hospital on 08/25/2025. Patient's daughter reports that patient was having nausea and vomiting with poor oral intake at home. She started to have coffee-ground emesis today and she also noticed some right streaks of blood with a coffee-ground emesis. Stool has also been dark in the ileostomy bag. Patient is having moderate intensity abdominal pain as well. She has not been taking any NSAIDs. Daughter reports that patient has been very weak since her discharge in very debilitated. Patient denies active chest pain. Denies active shortness of breath. On presentation to the hospital, patient was noted to be afebrile with T-max of 97.5 F, heart rate of 100, blood pressure of 127/91. [place] [address], hemoglobin of 16.4, platelet count of 239180. BMP was repeated twice, BMP showed sodium of 117, potassium 7.0, chloride of 88, CO2 of seven, BUN of 83, creatinine 5.0, blood glucose of 99, calcium 10.4. Blood gas showed pH of 7.28, bicarb of close to eight, CO2 of 18, lactic acid of three. Patient will be admitted to ICU. Patient is presenting with severe renal failure with hyperkalemia and severe metabolic acidosis. Patient also with concerns for upper GI bleeding with coffee-ground emesis. Patient remains critically ill consultation with Intensive Care, Nephrology, GI will be requested. We we will obtain a CT abdomen pelvis without contrast for further evaluation as well. Patient is critically ill. Plan of care was discussed with patient and daughter at bedside" 08/30/2025 Patient was seen and examined at bedside. Her blood pressure has been low, 88/54, heart rate 86. She is currently on Levophed 0.2 Mcg, octreotide, Protonix, sodium bicarbonate drip. She received 2nd hemodialysis session yesterday. As per Nephrology, she will continue to receive dialysis inpatient. Her high anion gap metabolic acidosis is improving with sodium 134, carbon dioxide 31, chloride 96. Her creatinine has trended down from 5-1.8. General surgery consult is on board and we will follow up with their recommendations. Additionally, in the light of history of liver cirrhosis with esophageal varices, her recent hematemesis will be evaluated with GI consult and possible endoscopy. We discussed this with the patient and her family members present besides. Patient is started on Merrem and blood culture, urine cultures show no growth so far. Her lactic acid has trended down from 3.1 to 2.1. 08/31/2025 Patient was seen and examined at bedside in room 214. She continues to be on Levophed 0.1 which is being weaned off. She is also on Sandostatin and Protonix drip. Patient complained of mild pain along the sides of her drain but denied any nausea or episode of vomiting since Saturday. Minimal drainage was noted. Sodium bicarb was discontinued as per Nephrology. Her lab markers have improved with sodium 141, chloride 104, bicarb 32, creatinine 1, BUN 16, ammonia 34. Her urine sodium was less than 20 consistent with prerenal CYNTHIA. We are pending blood and urine culture results. Her total output in the past24 hours has been optimal, 2069. She is on sodium chloride 150 mL/hour. We are following gastroenterology recommendations of possible upper endoscopy in the morning if patient condition remains stable. 09/01/2025 Patient was seen and examined at bedside. She is off vasopressor support and is hemodynamically stable. Her chest x-ray showed opacity in the left lower lobe and we will follow up with CT scan of chest. She is started on 2nd day of ppm today. She successfully underwent EGD which showed small, less than 5 mm, esophageal varices with scar in the lower 3rd of the esophagus. Patient was noted to have portal hypertensive gastropathy which was biopsied. Duodenum was normal during examination. Patient is receiving Merrem and her blood culture and urine cultures have shown no growth so far. Due to her elevated ammonia levels, she will be started on lactulose. We will proceed with caution with respect to normal saline as patient's BNP is elevated. 09/02/2025 The patient has been seen and examined earlier this morning during my rounding, case discussed with the RN, no acute events overnight, blood pressure 118/71, h eart rate of 56, afebrile, saturating normal on room air, CBC showing hemoglobin 8.5, hematocrit 36.8, WBC of 4.4, platelet count of 99, sodium 137, potassium 3.8, BUN of 18, creatinine 0.7, magnesium Lasix. Results of blood culture no growth after four days. Urine culture no growth. EGD reviewed, small less than 5 mm esophageal varices with scar in the lower 3rd of the esophagus. Patient with a bottle hypertensive gastropathy, status post biopsy, duodenum was normal during examination. Patient to be downgraded to the medical floor, continue banana bag, continue Protonix 40 mg IV b.i.d.. Plan for possible PEG tube placement. 09/03/2025 Patient was seen and examined at bedside. She has been advanced to GI soft bland diet which she is tolerating really well and having output in her ileostomy bag. As per surgeon, if she continues to tolerate diet, she may not require G-tube placement on discharge. Patient did not complain of any significant pain and seemed to be doing really well. Her cholecystostomy tube was removed but her splenic percutaneous tube is still in position and may require further IR intervention for repositioning due to persistent and mildly increased perisplenic fluid collection. She is receiving lactulose and her ammonia levels have gone down. Her acute renal failure continues to resolve and her vitals are also stable. No growth on urine and blood culture so far. We have shifted her from Protonix IV to p.o. as per GI recommendations. 09/04/2025 Patient was seen and examined at bedside in room 302. She has been tolerating GI soft bland diet, ileostomy output seems very high, liquid consistency and patient will be receiving fiber 3 times a day. Patient may require further IR intervention on Saturday for splenic drain reposition due to persistent and mildly increased perisplenic fluid collection. Vitals are stable, blood and urine culture shows no growth so far. 09/05/2025 Patient was seen and examined at bedside. She is tolerating GI soft bland diet, and her ileostomy output is high although liquid in consistency. We have decreased lactulose to b.i.d. from t.i.d. She continues on fiber 3 times a day as per surgery recommendations to bulk up the stool from the ileostomy in order to decrease the chances of further dehydration from high ileostomy output. Additionally, nodular swelling was appreciated in her right upper extremity which could be concerning for superficial venous thrombosis for which ultrasound Doppler of right upper extremity has been ordered. Patient is currently undergoing bladder training while being catheterized and we will proceed with Dueñas catheter removal as tolerated. 09/06/2025: Patient was seen and examined at bedside in room 302. She is tolerating GI soft bland diet and her ileostomy output has thicker consistency. Nurse reported that there was bright red blood in the ileostomy bag last night however this morning it was free from blood. Venous Doppler of the right upper extremity revealed deep vein thrombosis in right axillary vein and right cephalic vein, advice from Gastroenterology and Hematology was requested to start anticoagulation. Patient was started on Lovenox 1 mg/kg body weight as per Hematology recommendations. Patient will be continued on IV Protonix 40 mg b.i.d. 09/07/2025: Patient was seen and examined at bedside in room 302. Patient complained of generalized body pains however denied specific pain to the right arm or in abdomen. She is tolerating GI soft bland it and had to 25 mL of total output from ileostomy bag last night as per the primary nurse. During my evaluation in the morning there was no blood observed in the ileostomy bag however around 10:30 a.m. nurse reported blood in the ileostomy bag. Dr. Gonzalez recommended to continue Lovenox and bridge with apixaban 10 mg for 5 days and then transition to apixaban 5 mg for 3 months. Surgery recommended to continue current medical management and await management of DVT for potential discharge. However we will try to connect with them regarding removal of splenic drain or repositioning through IR Services. 09/08/2025: Patient was examined at bedside in room 302. Patient's family memb ers were present during the evaluation of helped us translate. Her ileostomy bag was clear. Patient attendants voiced that patient was more anxious about noticing blood in her ileostomy bag. Patient's hemoglobin and hematocrit have remained stable. Ileostomy bag has been replaced due to leakage. Patient and the family members were educated on proper care for ileostomy bag by the wound care team and was also reinforced that she needs to be on anticoagulation for venous thrombosis for preventing dislodging of clot to lungs and causing fatal pulmonary embolism. Risks and benefits were explained to the patient that patient will need anticoagulation and her hemoglobin will be monitored regularly. Was also encouraged to keep her food intake high and prevent dehydration. We will connect with surgical team for management of splenic catheter drain. 09/09/2025: Patient was examined at the bedside in room 302. Patient had no acute events over night but continues to have difficulty falling asleep and anxiety from the medical complexity. Her hemoglobin is stable 9.2 today. Patient has an abdominal binder in place with ostomy ring for better seal. Patient will undergo CT abdomen for evaluation of removal of splenic catheter drain today. We discontinued her Duloxetine and started 7.5 mg of Mirtazapine at bedtime. 09/10/2025: Patient was examined at the bedside in room 302. Patient had no acut events overnight and reports she had a restful sleep last night. There was no reported leakage of blood into the ileostomy bag. Patient still has the ostomy ring and binder in place. Surgical team recommended considering variceal banding which could be the source of frequent bleeding into the ileostomy bag. They also recommended to keep the splenic catheter drain in place for continued perisplenic fluid. Nurse was notified to call GI team for further recommendations. We will continue to taper her midodrine in the subsequent days as she is maintaining good blood pressure. 09/11/2025: Patient was examined at bedside in room 302 with daughter at bedside. Patient reports that she still continues to have restless nights due to anxiety. There was no blood in the ileostomy bag noted over the last night however bag has to be replaced due to leakage. Currently pending GI recommendations for evaluation of varices for potential banding. Hemoglobin remained stable. Daughter expressed concerns about severe anxiety causing her to not eat, not ambulate, and unable to express fears due to the medical complexities involved. We ordered a tele psych consult for evaluation of severe anxiety and ordered Seroquel PRN for insomnia and we will continue mirtazapine 7.5 mg everyday. We will obtain recommendations from Gastroenterology on Saturday. In addition we reinforced to the daughter that patient's hemoglobin is being monitored on a daily basis and bleeding in ileostomy bag should not be a concern for anxiety and reiterated to explain this to her mother. Also encou raged the patient to ambulate in the hallways and increase her dietary intake. 09/12/2025: Patient is seen in the room 302. Thid morning tele psych consultation was done. Gave following recommendations that patient is not suicidal homicidal or psychotic. Advised Remeron to [address] Sol called yesterday night to hold Eliquis for the possible EGD. So Eliquis held at least 3 days before the procedure. Changed ileostomy bag due to bag is leaking. General surgery recommends following- discontinue thickener, decrease lactulose to q.day, decrease Metamucil to b.i.d.. REVIEW OF SYSTEMS CONSTITUTIONAL: malaise, poor oral intake -resolving NEUROLOGICAL: Denies headache, motor weakness, sensory deficit, vertigo/spinning sensation, gait abnormalities, or tremors. ENT: No hearing loss, otalgia, otorrhea, rhinitis, rhinorrhea, hoarseness, or sore throat. CARDIOVASCULAR: Denies any exertional angina, dyspnea on exertion, orthopnea, paroxysmal nocturnal dyspnea, palpitations, life-threatening arrhythmias, claudi cation. PULMONARY: Denies any shortness of breath, cough, phlegm/sputum, hemoptysis, pleuritic chest pain. SLEEP: Denies morning headaches, daytime somnolence or napping. Denies difficulty falling asleep, staying asleep, waking from sleep. Denies knowledge of snoring. GASTROINTESTINAL: nausea, vomiting, abdominal pain, melena, coffee ground emesis - resolved GENITOURINARY: Urine output was very low - resolving PHYSICAL EXAM GENERAL APPEARANCE: The patient is awake, alert, and oriented, answering to all questions with very mild pain around her drains. NEUROLOGICAL: Cranial nerves II-XII grossly intact. Neurological examination is non focal with spontaneous movement of upper and lower extremities HEENT: Face is symmetric. Pupils are equal and reactive. Extraocular movements are intact. NECK: Supple. No JVD. No thyromegaly. No submental, submandibular, pre- /postauricular, occipital or supraclavicular lymphadenopathy. CHEST: Normal chest expansion. No Telemetry. LUNGS: Absence of any rales, rhonchi or any wheezing. CARDIOVASCULAR: Regular. S1 and S2 normal. No appreciable rubs, murmurs or gallops. ABDOMEN: no rebound noted, there is perisplenic abdominal drain noted with ileostomy bag, ostomy ring and abdominal binder. : Deferred. Currently catheterized. EXTREMITIES: Swelling in right upper extremity. Mild ecchymosis. Vital Signs (last 8hr) Date Time Temp Pulse Resp B/P (MAP) Pulse Ox O2 Delivery O2 Flow Rate FiO2 09/12/25 12:00 97.5 85 18 130/55 94 Room Air LABS: Laboratory: Test 09/12/25 16:20 09/12/25 04:33 Range/Units Whole Blood Glucose 165 H 70-110 MG/DL White Blood Count 5.8 4.8-10.8 K/uL Red Blood Count 3.12 L 4.00-5.50 MIL/uL Hemoglobin 9.7 L 12.0-16.0 g/dL Hematocrit 29.5 L 36-48 % Mean Corpuscular Volume 94.6 79-99 fL Mean Corpuscular Hemoglobin 31.1 27.0-33.0 pg Mean Corpuscular Hemoglobin Concent 32.9 32.0-36.0 g/dL Red Cell Distribution Width 18.8 H 11.0-15.5 % Platelet Count 243 130-400 K/uL Mean Platelet Volume 9.8 7.5-10.5 fL Immature Granulocyte % (Auto) 0.7 0-1 % Neutrophils (%) (Auto) 59.6 40.0-77.0 % Lymphocytes (%) (Auto) 26.6 21.0-51.0 % Monocytes (%) (Auto) 7.5 3.0-13.0 % Eosinophils (%) (Auto) 4.9 0.0-8.0 % Basophils (%) (Auto) 0.7 0.0-5.0 % Neutrophils # (Auto) 3.4 1.8-7.7 K/uL Lymphocytes # (Auto) 1.5 1.0-4.8 K/uL Monocytes # (Auto) 0.4 0.1-1.0 K/uL Eosinophils # (Auto) 0.28 0.00-0.70 K/uL Basophils # (Auto) 0.04 0.00-0.20 K/uL Absolute Immature Granulocyte (auto 0.04 0-1 K/uL Nucleated Red Blood Cells 0.0 0.0-0.19 % Sodium Level 133 L 136-145 mmol/L Potassium Level 4.1 3.5-5.1 mmol/L Chloride Level 106 101-111 mmol/L Carbon Dioxide Level 20 L 21-32 mmol/L Blood Urea Nitrogen 14 7-18 mg/dL Creatinine 1.2 H 0.5-1.0 mg/dL Glomerular Filtration Rate Calc 53 >90 mL/min Random Glucose 115 H 70-105 mg/dL Total Calcium 9.0 8.5-10.1 mg/dL Total Bilirubin 0.6 0.2-1.0 mg/dL Aspartate Amino Transf (AST/SGOT) 56 H 10-37 U/L Alanine Aminotransferase (ALT/SGPT) 29 12-78 U/L Alkaline Phosphatase 141 H 50-136 U/L Total Protein 6.8 6.0-8.3 g/dL Albumin 2.5 L 3.5-5.0 g/dL Current Medications Medications (Trade) Dose Ordered Sig/Gregory Route PRN Reason Start Time Stop Time Status Last Admin Dose Admin Acetaminophen (TYLenol 325MG TAB) 650 mg Q6H PRN PO MILD PAIN (1-3) 08/29/25 10:00 09/28/25 09:59 Acetaminophen/ Hydrocodone Bitart (NORco 5/325MG) 2 tab Q4H PRN PO SEVERE PAIN (7-10) 09/08/25 09:30 09/13/25 09:29 09/12/25 00:26 2 TAB Albuterol (DUOneb) 1 udvial Q6H PRN IH SHORTNESS OF BREATH 08/29/25 10:00 09/28/25 09:59 Apixaban (EliquIS) 5 mg BID PO 09/08/25 21:00 10/08/25 20:59 Hold 09/11/25 20:32 5 MG Apixaban (EliquIS) 10 mg BID PO 09/07/25 22:00 09/08/25 01:42 DC 09/07/25 22:06 10 MG Apixaban (EliquIS) 10 mg BID PO 09/08/25 09:30 09/08/25 10:13 DC Atorvastatin Calcium (LIPItor 10MG) 5 mg HS PO 09/05/25 21:00 10/05/25 20:59 09/11/25 20:31 5 MG Calcium Gluconate (Calcium Gluc 1gm Vial) 1 gm ONCE IV 08/29/25 09:30 08/29/25 09:23 DC Cyclobenzaprine HCl (Cyclobenzaprine HCl) 5 mg TID PRN PO muscle spasms 09/05/25 11:00 10/05/25 10:59 Dextrose (D50w) 50 ml AD PRN IV HYPOGLYCEMIA PROTOCOL 08/29/25 10:00 09/28/25 09:59 Dextrose/Sodium Chloride 1,000 ml @ 0 mls/hr AD IV 08/29/25 12:30 08/29/25 16:05 DC Duloxetine HCl (CymbALTA 30 mg CAP) 30 mg BID PO 09/03/25 21:00 09/09/25 11:10 DC 09/09/25 10:37 30 MG Enoxaparin Sodium (Lovenox (Pharmacy To Dose)) 1 unit Q12H SQ 09/06/25 13:30 09/06/25 13:21 DC Enoxaparin Sodium (Lovenox 60mg) 60 mg Q12H SQ 09/06/25 13:30 09/07/25 15:03 DC 09/07/25 14:29 60 MG Folic Acid (FOLic ACID 1 MG TABLET) 1 mg DAILY PO 09/08/25 09:00 10/08/25 08:59 09/12/25 08:13 1 MG Glucagon (Glucagon 1mg Kit) 1 mg AD PRN IM HYPOGLYCEMIA PROTOCOL 08/29/25 10:00 09/28/25 09:59 Home Med (Home Medication) (Medroxyprogesterone Acetate (Provera) 1 TAB) DAILY PO 09/06/25 09:00 10/06/25 08:59 Insulin Human Regular (humuLIN R 100 UNIT/ML 3ML) 5 unit ONCE IV 08/29/25 09:30 08/29/25 09:25 DC Insulin Human Regular (humuLIN R 100 UNIT/ML 3ML) INSULIN SLIDING SCAL... ACHS SQ 08/29/25 11:30 09/28/25 11:29 09/12/25 12:49 2 UNIT Insulin Human Regular 100 unit/ Sodium Chloride 101 ml @ 0 mls/hr PROTOCOL IV 08/29/25 12:30 08/29/25 16:05 DC Lactated Ringer's 1,000 ml @ 100 mls/hr Q10H IV 09/06/25 00:00 09/06/25 18:44 DC 09/06/25 08:35 100 MLS/HR Lactulose (Constulose 20gm/ 30ml Udcup) 20 gm BID PO 09/05/25 21:00 09/12/25 16:49 DC 09/11/25 08:16 20 GM Lactulose (Constulose 20gm/ 30ml Udcup) 20 gm DAILY PO 09/12/25 17:00 09/12/25 17:00 DC Lactulose (Constulose 20gm/ 30ml Udcup) 20 gm TID PO 09/01/25 14:00 09/05/25 10:44 DC 09/05/25 08:06 20 GM Magnesium Sulfate 50 ml @ 0 mls/hr PROTOCOL IV 08/29/25 12:30 08/29/25 16:05 DC Magnesium Sulfate 50 ml @ 0 mls/hr PROTOCOL IV 08/30/25 10:00 09/29/25 09:59 09/08/25 04:26 25 MLS/HR Magnesium Sulfate 50 ml @ 0 mls/hr PROTOCOL IV 09/02/25 13:30 09/02/25 13:04 DC Magnesium Sulfate 50 ml @ 0 mls/hr PROTOCOL IV 09/03/25 08:00 09/03/25 07:43 DC Meropenem (Merrem 500mg) 500 mg Q24H IVPB 08/29/25 10:00 08/31/25 09:59 DC 08/30/25 09:46 500 MG Meropenem (Merrem 500mg) 500 mg Q24H IVPB 08/31/25 23:30 09/10/25 02:29 DC 09/09/25 23:40 500 MG Midodrine (PROAMatine 5 MG TABLET) 5 mg BID PO 09/10/25 09:00 09/11/25 07:21 DC 09/10/25 21:42 5 MG Midodrine (PROAMatine 5 MG TABLET) 5 mg DAILY20 PO 09/11/25 20:00 09/12/25 09:00 DC 09/11/25 20:31 5 MG Midodrine (PROAMatine 5 MG TABLET) 5 mg TID PO 09/08/25 21:00 09/10/25 08:05 DC 09/09/25 15:24 5 MG Midodrine (PROAMatine 5 MG TABLET) 10 mg BID PO 09/01/25 09:00 08/31/25 18:36 DC Midodrine (PROAMatine 5 MG TABLET) 10 mg TID PO 09/01/25 09:00 09/08/25 17:20 DC 09/08/25 16:16 10 MG Mirtazapine (REMeron 15 MG TAB) 7.5 mg HS PO 09/09/25 21:00 09/12/25 11:05 DC 09/11/25 20:31 7.5 MG Mirtazapine (REMeron 15 MG TAB) 15 mg HS PO 09/12/25 21:00 10/12/25 20:59 Morphine Sulfate (morPHINE 2MG SYG) 0.5 mg Q4H PRN IVP SEVERE PAIN (7-10) 09/07/25 13:30 09/08/25 09:11 DC 09/08/25 04:27 0.5 MG Morphine Sulfate (morPHINE 2MG SYG) 0.5 mg Q4H PRN IVP SEVERE PAIN (7-10) 09/08/25 18:00 09/09/25 11:10 DC Morphine Sulfate (morPHINE 2MG SYG) 1 mg Q4H PRN IVP SEVERE PAIN (7-10) 09/05/25 13:30 09/07/25 11:35 DC 09/06/25 23:40 1 MG Morphine Sulfate (morPHINE 2MG SYG) 2 mg Q4H PRN IVP SEVERE PAIN (7-10) 09/01/25 05:30 09/05/25 13:19 DC 09/05/25 04:28 2 MG Norepinephrine Bitartrate 32 mg/ Sodium Chloride 250 ml @ 0 mls/hr Q0M STAT IV 08/29/25 21:01 08/29/25 21:07 DC 08/29/25 21:13 0 MLS/HR Octreotide Acetate 1250 mcg/ Sodium Chloride 250 ml @ 0 mls/hr PROTOCOL IV 08/29/25 08:30 09/01/25 10:32 DC 08/31/25 10:18 5 MLS/HR Ondansetron HCl (zoFRAN 4MG INJ) 4 mg Q6H PRN IVP NAUSEA/VOMITING 08/29/25 09:30 09/28/25 09:29 09/09/25 10:42 4 MG Pantoprazole Sodium (PROTonix 40MG INJ) 40 mg BID IVP 09/01/25 21:00 09/03/25 14:32 DC 09/03/25 09:16 40 MG Pantoprazole Sodium (PROTonix 40MG INJ) 40 mg BID IVP 09/06/25 09:00 10/06/25 08:59 09/12/25 08:13 40 MG Pantoprazole Sodium (PROTonix 40MG TAB) 40 mg DAILY PO 09/04/25 09:00 09/06/25 00:03 DC 09/05/25 08:06 40 MG Pantoprazole Sodium 80 mg/ Sodium Chloride 100 ml @ 10 mls/hr Q10H IV 08/29/25 08:30 09/01/25 10:32 DC 09/01/25 05:50 10 MLS/HR Pharmacy Profile Note (Pharmacy Communication) 1 each ONCE MISC 08/29/25 09:30 08/29/25 09:35 DC Pharmacy Profile Note (Pharmacy Communication) 1 each ONCE MISC 08/31/25 23:30 08/31/25 23:17 DC Potassium Chloride 100 ml @ 50 mls/hr AD PRN IV POTASSIUM PROTOCOL 08/29/25 12:30 09/28/25 12:29 09/02/25 06:26 50 MLS/HR Psyllium Hydrophilic Mucilloid (Metamucil) 1 tbs BID PO 09/12/25 17:00 09/12/25 18:00 DC 09/12/25 17:19 1 TBS Psyllium Hydrophilic Mucilloid (Metamucil) 1 tbs TID PO 09/04/25 14:00 09/12/25 16:49 DC 09/11/25 20:32 1 TBS Quetiapine Fumarate (SEROquel 25 mg TAB) 25 mg ONCE PRN PO INSOMNIA 09/11/25 21:00 10/11/25 20:59 Sodium Bicarbonate 150 meq/Dextrose 1,150 ml @ 125 mls/hr Q9H12M IVP 08/29/25 10:00 08/30/25 10:12 DC 08/30/25 08:07 125 MLS/HR Sodium Bicarbonate (Sodium Bicarbonate) 1,300 mg QID PO 09/10/25 17:00 10/10/25 16:59 09/12/25 17:24 1,300 MG Sodium Bicarbonate (Sodium Bicarbonate) 1,300 mg TID PO 09/07/25 14:00 09/08/25 18:00 DC 09/08/25 16:15 1,300 MG Sodium Bicarbonate (Sodium Bicarbonate) 1,300 mg TID PO 09/09/25 09:00 09/10/25 12:00 DC 09/10/25 10:31 1,300 MG Sodium Chloride 250 ml @ 0 mls/hr AD IV 08/29/25 17:30 09/28/25 17:29 Sodium Chloride 1,000 ml @ 0 mls/hr Q0M IV 08/29/25 16:00 08/29/25 16:03 DC Sodium Chloride 1,000 ml @ 0 mls/hr Q0M IV 08/29/25 16:00 09/01/25 08:01 DC 08/29/25 16:10 500 MLS/HR Sodium Chloride 1,000 ml @ 125 mls/hr Q8H IV 08/29/25 09:30 08/29/25 09:57 DC Sodium Chloride 1,000 ml @ 150 mls/hr Q6H40M IV 08/29/25 18:30 09/01/25 09:29 DC 08/31/25 16:16 150 MLS/HR Sodium Chloride 1,000 ml @ 200 mls/hr PROTOCOL IV 08/29/25 12:30 08/29/25 16:05 DC Sodium Chloride 1,000 ml @ 999 mls/hr Q1H1M IV 08/29/25 09:30 08/29/25 09:06 DC Thiamine HCl (Vitamin B-1) 200 mg Q12H IVP 08/29/25 09:30 09/02/25 09:30 DC 09/02/25 08:56 200 MG Vitamin B Complex (Vitamin B-12) 1,000 mcg DAILY PO 09/08/25 09:00 10/08/25 08:59 09/12/25 08:12 1,000 MCG DIAGNOSTICS / RADIOLOGY: [ ] ASSESSMENT: Acute upper GI bleeding- Hematemesis, dark output from ileostomy bag, POA, Improving Anxiety Acute DVT of right axillary vein and right cephalic vein High output from ileostomy bag, not POA Hemorrhagic shock versus hypovolemic shock, POA, Resolved Normocytic normochromic anemia, POA Non anion gap metabolic acidosis Generalized anxiety and Insomnia, POA Hypovolemic hypochloremic hyponatremia, POA, Resolved Severe hyperkalemia, POA, Resolved Hypokalemia, Not POA, resolved Hypophosphatemia, Not POA High anion gap metabolic acidosis, POA, Resolved Hyperammonemia, POA, Improving Lactic acidosis, POA, Resolved Hyperphosphatemia, POA, Resolved Acute renal failure - Prerenal Acute Kidney Injury, POA, resolved Starvation Ketoacidosis, POA Rule out occult sepsis, POA Recent extended hospitalization in [facility] [facility], 07/20/2025-08/05 for sepsis, acute abdomen, POA Severe Dehydration, POA, Improving History of esophageal varices, POA Acute Decompensated liver cirrhosis, POA Hx of acute cholecystitis, s/p cholecystostomy tube placement on 08/02/2025. Perisplenic abscess, s/p CT-guided drainage placement on 08/09/2025. 2.7 x 2.2 x 5.1 cm infrasplenic collection History of gastritis, POA Hx of Generalized peritonitis with ESBL E coli infection, POA Moderate Protein calorie malnutrition POA History of bilious peritonitis with small colonic anastomosis perforation s/p diagnostic laparoscopy, abdominal washout, ileostomy creation by Dr. Gann, 07/21/2025 Hx of DM II, POA Recent colovesical fistula repair with sigmoid colon resection and anastomosis on PLAN: High output from ileostomy * Continue fiber 3 times a day. Secretions have thickened. * Monitor for any signs of dehydration including vitals and BMP. * Lactulose decreased to b.i.d. from t.i.d.. * Ostomy ring and abdominal binder in place for better seal. * Monitor input and output including ileostomy bag. * Ileostomy bag change due to leakage * Surgery wants to discontinue thickener Acute DVT of right axillary vein and right cephalic vein * Patient developed nodular, tender swelling along the venous distribution in right upper extremity * Venous doppler on 09/05/25 revealed acute DVT of right axillary vein and right cephalic vein * Hematology recommended to bridge Lovenox 60 mg Q12 with Apixaban 10 mg BID for 5 days followed by Apixaban 5 mg bid for 3 months * We changed the apixaban to 5 mg b.i.d. * Gastroenterology cleared patient for anticoagulation * Held the Eliquis for 3 days * Since EGD is planned on Saturday * Non-Anion gap metabolic acidosis * Patient's bicarb is 20, sodium 133, chloride 106 and albumin 2.5, albumin corrected anion gap 11.8 * Patient to be continued on 1300 mg of sodium bicarbonate t.i.d. * We will monitor labs tomorrow a.m. Acute upper GI bleeding- Hematemesis, dark output from ileostomy bag * EGD was done which showed less than 5 mm esophageal varices with scar in the lower 3rd of the esophagus, hypertensive gastropathy, status post biopsy, duodenum was normal during examination. * Patient received Sandostatin and Protonix drip on presentation which were subsequently stopped . * Patient resumed on IV Protonix 40 mg b.i.d. * Diet advanced to regular diet * Monitor for bleeding, we will obtain recommendations from GI for possible variceal banding * Ileostomy output 225 ml in last 24 hours and has thicker consistency, * DC thickener Normocytic normochromic anemia, iron deficiency * Patient's hemoglobin stable at 9.7 * Anemia of chronic disease versus iron deficiency versus blood loss. * Iron 31, TIBC 155, % sat 20 * Keep hemoglobin above 7 Acute renal failure, Prerenal Acute Kidney Injury, Dehydration, resolved * On Presentation, patient's creatinine was 5, BUN 80. * FENa <0.2, Stone <20 - Urine microscopy showed Hyaline and granular casts * Patient was started on NaCl 150mls/hr which was stopped. * Bicarb drip was discontinued as per nephrology. * patient is successfully weaned off Levophed * Patient received emergent hemodialysis session for elevated renal parameters as well as electrolyte derangements including Hyperkalemia and acidosis. * Her creatinine and BUN have improved to 0.7 and 9 respectively (09/08) * Transfuse as needed to keep Hb above 7 (Hb=9.0, 08/31/25) * Monitor input and output. Patient's total output in the past24 hours is 2070, versus 3950 input. * We will repeat a.m. labs and follow up with Nephrology recommendations. Generalized anxiety and Insomnia * Patient very anxious about her health outcomes from the medical complexity * Patient is worried after noticing blood in the ileostomy bag while continuing anticoagulation for DVT * Patient reassured of close monitoring and risk vs benefits on continuing anticoagulation * Continue Mirtazapine 7.5 mg daily and Seroquel 25 mg PRN * Tele psych consultation placed * Remeron increased to 15 ATTESTATION BY PHYSICIAN I have seen and examined the patient. I reviewed the documentation, medical decision making, and treatment plan as noted by the resident physician above. I agree with the findings and plan of care. AYAKA BARR MD, HARSHA MD Sep 12, 2025 19:47
[2025-09-13] VITALS (7 sets, daily range): BP systolic 110–141; BP diastolic 60–91; PULSE 81–116; RESP 18–20; TEMP 96.8–98; O2SAT 98–100
[2025-09-13 04:40] LABS: NUCLEATED RED BLOOD CELLS 0.0 % (0.0-0.19); PLATELET COUNT (AUTO) 188.0 K/uL (130-400); RED BLOOD CELL COUNT(AUTO) 2.9 MIL/uL (4.00-5.50); RED CELL DISTRIBUTION WIDTH 18.8 % (11.0-15.5); WHITE BLOOD COUNT (AUTO) 4.9 K/uL (4.8-10.8)
[2025-09-13 05:04] LABS: ASPARTATE AMINOTRANSFERASE 56.0 U/L (10-37); CREATININE 1.1 mg/dL (0.5-1.0); GLOMERULAR FILTR. RATE CALC 59.0 mL/min (>90); GLUCOSE,RANDOM 138.0 mg/dL (70-105); SODIUM SERUM 132.0 mmol/L (136-145); TOTAL PROTEIN, SERUM 6.4 g/dL (6.0-8.3); UREA NITROGEN, BLOOD 18.0 mg/dL (7-18)
--- NOTE | 2025-09-13 12:53 | PN ---
NEPHROLOGY PROGRESS NOTE Date/Time Patient Seen: Sep 13, 2025 SUBJECTIVE: This is a 55-year-old female with a past medical history of diabetes mellitus type 2, liver cirrhosis, esophageal varices. She initially presented to the hospital with GI bleeding. The patient did have significant hyperkalemia upon admission and did require one course of dialysis. The patient's renal function has greatly improved. The patient had been having some hematochezia through the ostomy and the patient is being seen by Surgical Service and GI She continues to be followed by wound care. The patient is being seen as a followup visit for all of the above. Renal function and electrolytes have been stable. Hemoglobin has remained stable Pending EGD, planned for tomorrow. Marc on hold for EGD She was seen in the medical floor, in no acute distress Multiple family members at the bedside REVIEW OF SYSTEMS: GENERAL: Positive for generalized weakness NEUROLOGIC: Negative for any blurry vision, blind spots, double vision, facial asymmetry, dysphagia, dysarthria, hemiparesis, hemisensory deficits, vertigo, ataxia. HEENT: Negative for any head trauma, neck trauma, neck stiffness, photophobia, phonophobia, sinusitis, rhinitis. CARDIAC: Negative for any chest pain, dyspnea on exertion, paroxysmal nocturnal dyspnea, peripheral edema. PULMONARY: Negative for any shortness of breath, wheezing, COPD, or TB exposure. GASTROINTESTINAL: Negative for any abdominal pain, nausea, vomiting, bright red blood per rectum, melena. GENITOURINARY: Negative for any dysuria, hematuria, incontinence. INTEGUMENTARY: Negative for any rashes, cuts, insect bites. RHEUMATOLOGIC: Negative for any joint pains, photosensitive rashes, history of vasculitis or kidney problems. HEMATOLOGIC: Negative for any abnormal bruising, frequent infections or bleeding. Vital Signs (last 8hr) Date Time Temp Pulse Resp B/P (MAP) Pulse Ox O2 Delivery O2 Flow Rate FiO2 09/13/25 11:38 98.1 89 18 141/74 98 Room Air 09/13/25 08:00 97.5 88 18 135/72 98 PHYSICAL EXAM: GENERAL: Alert and oriented x 3. No acute distress. Well-nourished. EYES: EOMI. Anicteric. HENT: Moist mucous membranes. No scleral icterus. No cervical lymphadenopathy. LUNGS: Clear to auscultation bilaterally. No accessory muscle use. CARDIOVASCULAR: Regular rate and rhythm. No murmur. No JVD. ABDOMEN: Soft, non-tender and non-distended. No palpable masses. Ileostomy in place EXTREMITIES: No edema. Non-tender. SKIN: No rashes or lesions. Warm. NEUROLOGIC: No focal neurological deficits. CN II-XII grossly intact, but not individually tested. PSYCHIATRIC: Cooperative. Appropriate mood and affect. Current Medications Medications (Trade) Dose Ordered Sig/[facility] Route Start Time Stop Time Status Last Admin Dose Admin Apixaban (EliquIS) 5 mg BID PO 09/08/25 21:00 10/08/25 20:59 09/11/25 08:17 5 MG Apixaban (EliquIS) 10 mg BID PO 09/07/25 22:00 09/08/25 01:42 DC 09/07/25 22:06 10 MG Apixaban (EliquIS) 10 mg BID PO 09/08/25 09:30 09/08/25 10:13 DC Atorvastatin Calcium (LIPItor 10MG) 5 mg HS PO 09/05/25 21:00 10/05/25 20:59 09/10/25 20:25 5 MG Calcium Gluconate (Calcium Gluc 1gm Vial) 1 gm ONCE IV 08/29/25 09:30 08/29/25 09:23 DC Dextrose/Sodium Chloride 1,000 ml @ 0 mls/hr AD IV 08/29/25 12:30 08/29/25 16:05 DC Duloxetine HCl (CymbALTA 30 mg CAP) 30 mg BID PO 09/03/25 21:00 09/09/25 11:10 DC 09/09/25 10:37 30 MG Enoxaparin Sodium (Lovenox (Pharmacy To Dose)) 1 unit Q12H SQ 09/06/25 13:30 09/06/25 13:21 DC Enoxaparin Sodium (Lovenox 60mg) 60 mg Q12H SQ 09/06/25 13:30 09/07/25 15:03 DC 09/07/25 14:29 60 MG Folic Acid (FOLic ACID 1 MG TABLET) 1 mg DAILY PO 09/08/25 09:00 10/08/25 08:59 09/11/25 08:16 1 MG Home Med (Home Medication) (Medroxyprogesterone Acetate (Provera) 1 TAB) DAILY PO 09/06/25 09:00 10/06/25 08:59 Insulin Human Regular (humuLIN R 100 UNIT/ML 3ML) 5 unit ONCE IV 08/29/25 09:30 08/29/25 09:25 DC Insulin Human Regular (humuLIN R 100 UNIT/ML 3ML) INSULIN SLIDING SCAL... ACHS SQ 08/29/25 11:30 09/28/25 11:29 09/10/25 20:29 2 UNIT Insulin Human Regular 100 unit/ Sodium Chloride 101 ml @ 0 mls/hr PROTOCOL IV 08/29/25 12:30 08/29/25 16:05 DC Lactated Ringer's 1,000 ml @ 100 mls/hr Q10H IV 09/06/25 00:00 09/06/25 18:44 DC 09/06/25 08:35 100 MLS/HR Lactulose (Constulose 20gm/ 30ml Udcup) 20 gm BID PO 09/05/25 21:00 10/01/25 13:59 09/11/25 08:16 20 GM Lactulose (Constulose 20gm/ 30ml Udcup) 20 gm TID PO 09/01/25 14:00 09/05/25 10:44 DC 09/05/25 08:06 20 GM Magnesium Sulfate 50 ml @ 0 mls/hr PROTOCOL IV 08/29/25 12:30 08/29/25 16:05 DC Magnesium Sulfate 50 ml @ 0 mls/hr PROTOCOL IV 08/30/25 10:00 09/29/25 09:59 09/08/25 04:26 25 MLS/HR Magnesium Sulfate 50 ml @ 0 mls/hr PROTOCOL IV 09/02/25 13:30 09/02/25 13:04 DC Magnesium Sulfate 50 ml @ 0 mls/hr PROTOCOL IV 09/03/25 08:00 09/03/25 07:43 DC Meropenem (Merrem 500mg) 500 mg Q24H IVPB 08/29/25 10:00 08/31/25 09:59 DC 08/30/25 09:46 500 MG Meropenem (Merrem 500mg) 500 mg Q24H IVPB 08/31/25 23:30 09/10/25 02:29 DC 09/09/25 23:40 500 MG Midodrine (PROAMatine 5 MG TABLET) 5 mg BID PO 09/10/25 09:00 09/11/25 07:21 DC 09/10/25 21:42 5 MG Midodrine (PROAMatine 5 MG TABLET) 5 mg DAILY20 PO 09/11/25 20:00 09/12/25 09:00 Midodrine (PROAMatine 5 MG TABLET) 5 mg TID PO 09/08/25 21:00 09/10/25 08:05 DC 09/09/25 15:24 5 MG Midodrine (PROAMatine 5 MG TABLET) 10 mg BID PO 09/01/25 09:00 08/31/25 18:36 DC Midodrine (PROAMatine 5 MG TABLET) 10 mg TID PO 09/01/25 09:00 09/08/25 17:20 DC 09/08/25 16:16 10 MG Mirtazapine (REMeron 15 MG TAB) 7.5 mg HS PO 09/09/25 21:00 10/09/25 20:59 09/10/25 20:24 7.5 MG Norepinephrine Bitartrate 32 mg/ Sodium Chloride 250 ml @ 0 mls/hr Q0M STAT IV 08/29/25 21:01 08/29/25 21:07 DC 08/29/25 21:13 0 MLS/HR Octreotide Acetate 1250 mcg/ Sodium Chloride 250 ml @ 0 mls/hr PROTOCOL IV 08/29/25 08:30 09/01/25 10:32 DC 08/31/25 10:18 5 MLS/HR Pantoprazole Sodium (PROTonix 40MG INJ) 40 mg BID IVP 09/01/25 21:00 09/03/25 14:32 DC 09/03/25 09:16 40 MG Pantoprazole Sodium (PROTonix 40MG INJ) 40 mg BID IVP 09/06/25 09:00 10/06/25 08:59 09/11/25 08:16 40 MG Pantoprazole Sodium (PROTonix 40MG TAB) 40 mg DAILY PO 09/04/25 09:00 09/06/25 00:03 DC 09/05/25 08:06 40 MG Pantoprazole Sodium 80 mg/ Sodium Chloride 100 ml @ 10 mls/hr Q10H IV 08/29/25 08:30 09/01/25 10:32 DC 09/01/25 05:50 10 MLS/HR Pharmacy Profile Note (Pharmacy Communication) 1 each ONCE MISC 08/29/25 09:30 08/29/25 09:35 DC Pharmacy Profile Note (Pharmacy Communication) 1 each ONCE MISC 08/31/25 23:30 08/31/25 23:17 DC Psyllium Hydrophilic Mucilloid (Metamucil) 1 tbs TID PO 09/04/25 14:00 10/04/25 13:59 09/11/25 08:17 1 TBS Sodium Bicarbonate 150 meq/Dextrose 1,150 ml @ 125 mls/hr Q9H12M IVP 08/29/25 10:00 08/30/25 10:12 DC 08/30/25 08:07 125 MLS/HR Sodium Bicarbonate (Sodium Bicarbonate) 1,300 mg QID PO 09/10/25 17:00 10/10/25 16:59 09/11/25 08:16 1,300 MG Sodium Bicarbonate (Sodium Bicarbonate) 1,300 mg TID PO 09/07/25 14:00 09/08/25 18:00 DC 09/08/25 16:15 1,300 MG Sodium Bicarbonate (Sodium Bicarbonate) 1,300 mg TID PO 09/09/25 09:00 09/10/25 12:00 DC 09/10/25 10:31 1,300 MG Sodium Chloride 250 ml @ 0 mls/hr AD IV 08/29/25 17:30 09/28/25 17:29 Sodium Chloride 1,000 ml @ 0 mls/hr Q0M IV 08/29/25 16:00 08/29/25 16:03 DC Sodium Chloride 1,000 ml @ 0 mls/hr Q0M IV 08/29/25 16:00 09/01/25 08:01 DC 08/29/25 16:10 500 MLS/HR Sodium Chloride 1,000 ml @ 125 mls/hr Q8H IV 08/29/25 09:30 08/29/25 09:57 DC Sodium Chloride 1,000 ml @ 150 mls/hr Q6H40M IV 08/29/25 18:30 09/01/25 09:29 DC 08/31/25 16:16 150 MLS/HR Sodium Chloride 1,000 ml @ 200 mls/hr PROTOCOL IV 08/29/25 12:30 08/29/25 16:05 DC Sodium Chloride 1,000 ml @ 999 mls/hr Q1H1M IV 08/29/25 09:30 08/29/25 09:06 DC Thiamine HCl (Vitamin B-1) 200 mg Q12H IVP 08/29/25 09:30 09/02/25 09:30 DC 09/02/25 08:56 200 MG Vitamin B Complex (Vitamin B-12) 1,000 mcg DAILY PO 09/08/25 09:00 10/08/25 08:59 09/11/25 08:16 1,000 MCG LABORATORY: [ ] Hematology Labs: Test 09/13/25 04:21 09/12/25 04:33 Range/Units White Blood Count 4.9 4.8-10.8 K/uL Red Blood Count 2.90 L 4.00-5.50 MIL/uL Hemoglobin 9.1 L 12.0-16.0 g/dL Hematocrit 27.8 L 36-48 % Mean Corpuscular Volume 95.9 79-99 fL Mean Corpuscular Hemoglobin 31.4 27.0-33.0 pg Mean Corpuscular Hemoglobin Concent 32.7 32.0-36.0 g/dL Red Cell Distribution Width 18.8 H 11.0-15.5 % Platelet Count 188 130-400 K/uL Mean Platelet Volume 9.7 7.5-10.5 fL Nucleated Red Blood Cells 0.0 0.0-0.19 % Immature Granulocyte % (Auto) 0.7 0-1 % Neutrophils (%) (Auto) 59.6 40.0-77.0 % Lymphocytes (%) (Auto) 26.6 21.0-51.0 % Monocytes (%) (Auto) 7.5 3.0-13.0 % Eosinophils (%) (Auto) 4.9 0.0-8.0 % Basophils (%) (Auto) 0.7 0.0-5.0 % Neutrophils # (Auto) 3.4 1.8-7.7 K/uL Lymphocytes # (Auto) 1.5 1.0-4.8 K/uL Monocytes # (Auto) 0.4 0.1-1.0 K/uL Eosinophils # (Auto) 0.28 0.00-0.70 K/uL Basophils # (Auto) 0.04 0.00-0.20 K/uL Absolute Immature Granulocyte (auto 0.04 0-1 K/uL Chemistry Labs: Test 09/13/25 11:02 09/13/25 04:21 Range/Units Whole Blood Glucose 173 H 70-110 MG/DL Sodium Level 132 L 136-145 mmol/L Potassium Level 3.9 3.5-5.1 mmol/L Chloride Level 104 101-111 mmol/L Carbon Dioxide Level 20 L 21-32 mmol/L Blood Urea Nitrogen 18 7-18 mg/dL Creatinine 1.1 H 0.5-1.0 mg/dL Glomerular Filtration Rate Calc 59 >90 mL/min Random Glucose 138 H 70-105 mg/dL Total Calcium 8.6 8.5-10.1 mg/dL Magnesium Level 1.70 L 1.80-2.40 mg/dL Total Bilirubin 0.4 # 0.2-1.0 mg/dL Aspartate Amino Transf (AST/SGOT) 56 H 10-37 U/L Alanine Aminotransferase (ALT/SGPT) 28 12-78 U/L Alkaline Phosphatase 140 H 50-136 U/L Ammonia 74 H 11-32 umol/L Total Protein 6.4 6.0-8.3 g/dL Albumin 2.4 L 3.5-5.0 g/dL Thyroid Stimulating Hormone (TSH) 0.23 #L 0.36-3.74 uIU/mL Free Triiodothyronine (T3) pg/mL 2.38 2.18-3.98 pg/mL DIAGNOSTICS / RADIOLOGY: [place] [address] IMAGING REPORT Signed PATIENT: DALLAS BUCHANAN MR#: [id number] : 1970 SEX: F AGE: 55 LOCATION: 3AH ORDER 2300 STATUS: ADM IN REPORT#: [id number] SERVICE 0600 REASON: EVALUATE LUQ PIGRTAIL FOR POSSIBLE REMOVAL ORDERING PHYSICIAN: FE BRODY MD PROCEDURE: ABDO WO - CT ABDOMEN W/O CONTRAST EXAM: CT ABDOMEN WITHOUT INTRAVENOUS CONTRAST Technique: Multislice helical computed tomography from the diaphragms through the inguinal region with thin-section axial images and coronal/sagittal reformations; dose reduction applied per ALARA. CTDIvol 6.5 mGy; DLP 204.50 mGy???cm. Contrast: No intravenous contrast administered. Clinical Information: Evaluate left upper-quadrant pigtail catheter for possible removal. Comparison: CT abdomen without contrast 09/06 00:31 EST Findings: Lung bases: Residual trace left pleural effusion with adjacent atelectasis; previously described calcified right lower-lobe pulmonary nodule is not visualized on this limited abdominal coverage. Liver: Nodular hepatic contour consistent with cirrhosis; no focal hepatic lesion identified on this noncontrast study. Gallbladder and biliary tree: Multiple punctate calcifications along the gallbladder wall; no biliary ductal dilatation. Pancreas and spleen: Stable perisplenic fluid collection with an indwelling drainage catheter and adjacent mild fat stranding; pancreatic contour and attenuation are unremarkable. Adrenal glands: Unremarkable bilaterally. Kidneys and ureters: Normal size and morphology; no hydronephrosis or nephrolithiasis. Stomach and bowel: Stomach distended with food residue; right lumbar ileostomy with stable postsurgical bowel changes; no bowel obstruction identified. Peritoneum and mesentery: Stable mild mesenteric edema; interval resolution of the previously noted minimal free fluid along the greater curvature of the stomach; no new free fluid or free intraperitoneal air. Lymph nodes: No pathologic abdominopelvic lymphadenopathy. Vasculature: No abdominal aortic aneurysm. Abdominal wall/soft tissues: No focal collection aside from the described perisplenic drain. Osseous structures: Multilevel mild spondylosis; no acute osseous abnormality. Impression: * Stable perisplenic fluid collection with an indwelling drainage catheter and mild adjacent fat stranding???correlate with drain output, clinical status, and inflammatory markers to determine readiness for catheter removal; interval imaging or catheter study may be helpful if uncertainty persists. * Cirrhotic liver morphology. Recommend clinical and laboratory correlation and hepatology follow-up if not already established. * Gallbladder wall calcifications (punctate pattern) without biliary dilatation???correlate clinically; consider surgical consultation if porcelain gallbladder is suspected based on pattern and extent of calcification. * Residual trace left pleural effusion with adjacent atelectasis; stomach distention with food residue; right lumbar ileostomy with expected postsurgical changes; no new abdominopelvic free fluid or free air. * Compared with 09/06/2025 00:31 EST, the perisplenic collection is unchanged with the drain remaining in place, the previously described minimal perigastric free fluid has resolved, and the prior calcified right lower-lobe nodule is not visualized on this limited abdominal scan; otherwise, no significant interval change. /[facility] DICTATED BY: EDWIGE LEDESMA MD DATE: 09/09/251409 ELECTRONICALLY SIGNED BY: EDWIGE LEDESMA MD DATE: 09/09/251409 PATIENT: DALLAS BUCHANAN MR#: [id number] : 1970 SEX: F AGE: 55 LOCATION: 3AH ORDER 235 STATUS: ADM IN REPORT#: [id number] SERVICE 2346 REASON: abdiominal pain ORDERING PHYSICIAN: CYNTHIA ALEXANDER PROCEDURE: ABDO WO - CT ABDOMEN W/O CONTRAST EXAMINATION CT Abdomen Without IV Contrast CLINICAL HISTORY Patient presents with abdominal pain. TECHNIQUE Axial computed tomography images of the abdomen were obtained without intravenous contrast. CONTRAST No IV contrast administered. COMPARISON 09/01/2025. FINDINGS: LUNG BASES: Residual trace left pleural effusion with adjacent atelectasis. Interval resolution of previously described mild right pleural effusion. Stable calcified nodule in the right lower lobe. LIVER: Nodular hepatic contour consistent with cirrhosis. GALLBLADDER AND BILE DUCTS: Multiple punctate calcifications in the gallbladder wall. No biliary ductal dilatation. PANCREAS AND SPLEEN: Stable perisplenic fluid collection with drainage catheter in situ and adjacent fat stranding. ADRENAL GLANDS: Unremarkable. KIDNEYS AND URETERS: Normal in size and morphology. No hydronephrosis or nephrolithiasis. STOMACH AND BOWEL: Stomach distended with food residue. Right lumbar ileostomy with stable postsurgical bowel changes. Uncomplicated colonic diverticula. A component of mild constipation. PERITONEUM: Stable mild mesenteric edema. Significant interval resolution of the previously demonstrated minimal free fluid along the greater curvature of the stomach. No new free fluid or free air. LYMPH NODES: No significant lymphadenopathy. VASCULATURE: No abdominal aortic aneurysm. BONES: Multilevel mild spondylosis. IMPRESSION: Nodular cirrhotic liver. Stable perisplenic fluid collection with drainage catheter in situ and adjacent fat stranding. Right lumbar ileostomy with stable postsurgical bowel changes. Residual trace left pleural effusion with adjacent atelectasis. Interval resolution of the right pleural effusion. Stable calcified right lower lobe pulmonary nodule. Stomach distended with food residue. Uncomplicated colonic diverticula with mild constipation. Stable mild mesenteric edema with interval resolution of previously described minimal free fluid. Multiple punctate calcifications in the gallbladder wall, likely cholesterolosis. /[facility] DICTATED BY: ELDON MILLER Jr., MD DATE: 09/06/25233 ELECTRONICALLY SIGNED BY: ELDON MILLER Jr., MD DATE: 09/06/25233 PATIENT: DALLAS BUCHANAN MR#: [id number] : 1970 SEX: F AGE: 55 LOCATION: [facility] ORDER 1319 STATUS: ADM IN REPORT#: [id number] SERVICE 1316 REASON: R/o DVT versus SVT ORDERING PHYSICIAN: SONJA PERALTA MD PROCEDURE: VENOUS UNI - US VENOUS DOPPLER UNILATERAL ADDENDUM REPORT ADDENDUM: Results were shared by telephone at 10:59am on 09-06-25 and acknowledged by Patients Nurse Ms. Britt Robert /[facility] EXAMINATION: SPECTRAL DOPPLER ULTRASOUND EXAMINATION OF THE RIGHT UPPER EXTREMITY VEINS. CLINICAL HISTORY: To rule out DVT. COMPARISON: None. TECHNIQUE: Grayscale, color, and spectral Doppler images of the right upper extremity veins are submitted. FINDINGS: The internal jugular, subclavian, basilic, and brachial veins are patent. These veins show normal flow with physiological changes of phasicity and augmentation. The right axillary vein and cephalic veins are non-compressible and there is no flow on augmentation. IMPRESSION: Acute deep vein thrombosis in the right axillary vein. Right cephalic vein thrombosis. There is no deep vein thrombosis in the remainder of the right upper extmreiyt, /[facility] DICTATED BY: TOBI LEAHY MD DATE: 09/06/251154 ELECTRONICALLY SIGNED BY: DATE: EXAMINATION: SPECTRAL DOPPLER ULTRASOUND EXAMINATION OF THE RIGHT UPPER EXTREMITY VEINS. CLINICAL HISTORY: To rule out DVT. COMPARISON: None. TECHNIQUE: Grayscale, color, and spectral Doppler images of the right upper extremity veins are submitted. FINDINGS: The internal jugular, subclavian, basilic, and brachial veins are patent. These veins show normal flow with physiological changes of phasicity and augmentation. The right axillary vein and cephalic veins are non-compressible and there is no flow on augmentation. IMPRESSION: Acute deep vein thrombosis in the right axillary vein. Right cephalic vein thrombosis. There is no deep vein thrombosis in the remainder of the right upper extmreiyt, /[place] DICTATED BY: TOBI LEAHY MD DATE: 09/06/25941 ELECTRONICALLY SIGNED BY: TOBI LEAHY MD DATE: 09/06/25941 PATIENT: DALLAS BUCHANAN MR#: [id number] : 1970 SEX: F AGE: 55 LOCATION: 3AH ORDER 2300 STATUS: ADM IN REPORT#: [id number] SERVICE 0600 REASON: hypoxic ORDERING PHYSICIAN: LOBO RICKS [facility] PROCEDURE: CXR1VW - CHEST 1VW EXAM: CR Chest, 1 View (Portable, Supine). CLINICAL HISTORY: Chest pain. COMPARISON: CR Chest, 2 View ??? 09/01/2025 01:13 AM EDT. FINDINGS: LUNGS: Area of haziness in left lower zone-Remained stable. Rest of the lungs are clear. No focal consolidation, pulmonary edema, or acute infiltrate. PLEURAL SPACES: No pleural effusion or pneumothorax. MEDIASTINUM: Cardiac size and mediastinal contours within normal limits. No acute osseous abnormality. LINES/DEVICES: Monitoring leads noted. No new devices identified. IMPRESSION: Area of haziness in left lower zone likely airspace opacity-Stable compared to previous radiograph. /[facility] DICTATED BY: TOBI LEAHY MD DATE: 09/03/251137 ELECTRONICALLY SIGNED BY: TOBI LEAHY MD DATE: 09/03/251137 PATIENT: DALLAS BUCHANAN MR#: [id number] : 1970 SEX: F AGE: 55 LOCATION: 2CV ORDER 1231 STATUS: ADM IN REPORT#: [id number] SERVICE 1227 REASON: EVALUATE LUQ PIGRTAIL FOR POSSIBLE REMOVAL ORDERING PHYSICIAN: SUSAN JHAVERI MD PROCEDURE: ABDO WO - CT ABDOMEN W/O CONTRAST ADDENDUM REPORT ADDENDUM: Results were shared by telephone at 11:21 pm on 09-01-25 and acknowledged by Patient's Nurse Jabier Bangura. /[facility] EXAM: CT ABDOMEN WITHOUT INTRAVENOUS CONTRAST Technique: Multislice helical computed tomography of the abdomen was performed from the diaphragms through the iliac crests with axial images and coronal/sagittal reformations. Dose optimization per ALARA. Contrast: No intravenous contrast administered. Contrast Impression: Noncontrast technique limits assessment of enhancement-dependent pathology and characterization of fluid collections. Clinical Information: Evaluation of left upper quadrant pigtail drain for possible removal. Comparison: CT abdomen/pelvis without contrast dated 08/29/2025. Findings: Lung bases: Interval development of small bilateral pleural effusions with dependent subsegmental atelectasis in the lower lobes. Previously described tiny calcified nodules are not conspicuous on the current noncontrast images. Liver: Morphologic features of cirrhosis are unchanged. No focal hepatic lesion identified on this noncontrast study. Gallbladder and bile ducts: Decompressed gallbladder with a cholecystostomy tube in place, stable. No biliary ductal dilatation. Pancreas: Normal contour without peripancreatic inflammatory change. Spleen: Infrasplenic fluid collection adjacent to the splenic inferior pole measuring approximately 2.7 ??? 3.5 ??? 6.4 cm (previously 2.7 ??? 2.2 ??? 5.1 cm), with a pigtail drainage catheter in situ and mild adjacent fat stranding. Adrenal glands: Normal morphology bilaterally. Kidneys and ureters: Kidneys within normal size and contour; no hydronephrosis or hydroureter; no nephrolithiasis. Urinary bladder: Dueñas catheter in place with small intraluminal gas foci, likely iatrogenic; bladder otherwise unremarkable. Stomach and bowel: Right iliac fossa ileostomy defect ( 2.4 cm) and postoperative bowel changes, stable. No evidence of bowel obstruction, enteritis, or colitis. Peritoneum and mesentery: New minimal free fluid predominantly along the greater curvature of the stomach with mild mesenteric edema (anasarca). No free intraperitoneal air. Lymph nodes: No pathologic abdominopelvic lymphadenopathy. Vasculature: Abdominal aorta normal in caliber. Abdominal wall/soft tissues: Expected postoperative changes at the ostomy site; otherwise unremarkable. Osseous structures: No acute or aggressive osseous abnormality; mild degenerative changes in the visualized spine. Impression: * Infrasplenic collection with indwelling pigtail drain has increased in size compared with 08/29/2025 (now 2.7 ??? 3.5 ??? 6.4 cm from 2.7 ??? 2.2 ??? 5.1 cm) with mild surrounding fat stranding???ongoing collection persists. Drain removal is not advised at this time based on interval enlargement; recommend interventional radiology review for catheter position/patency, consideration of catheter upsizing or repositioning, and correlation with output and culture. * New small bilateral pleural effusions with dependent basilar atelectasis. Monitor clinically; consider diuresis or follow-up imaging as indicated. * Cirrhotic hepatic morphology, unchanged. * Decompressed gallbladder with cholecystostomy tube in place, stable; no biliary ductal dilatation. * Minimal ascites and mild mesenteric edema (anasarca), new from prior. * Dueñas catheter with small intravesical gas, likely iatrogenic. * No bowel obstruction, hydronephrosis, or nephrolithiasis identified. /[place] DICTATED BY: EDWIGE LDEESMA MD DATE: 09/01/25 4595 ELECTRONICALLY SIGNED BY: DATE: EXAM: CT ABDOMEN WITHOUT INTRAVENOUS CONTRAST Technique: Multislice helical computed tomography of the abdomen was performed from the diaphragms through the iliac crests with axial images and coronal/sagittal reformations. Dose optimization per ALARA. Contrast: No intravenous contrast administered. Contrast Impression: Noncontrast technique limits assessment of enhancement-dependent pathology and characterization of fluid collections. Clinical Information: Evaluation of left upper quadrant pigtail drain for possible removal. Comparison: CT abdomen/pelvis without contrast dated 08/29/2025. Findings: Lung bases: Interval development of small bilateral pleural effusions with dependent subsegmental atelectasis in the lower lobes. Previously described tiny calcified nodules are not conspicuous on the current noncontrast images. Liver: Morphologic features of cirrhosis are unchanged. No focal hepatic lesion identified on this noncontrast study. Gallbladder and bile ducts: Decompressed gallbladder with a cholecystostomy tube in place, stable. No biliary ductal dilatation. Pancreas: Normal contour without peripancreatic inflammatory change. Spleen: Infrasplenic fluid collection adjacent to the splenic inferior pole measuring approximately 2.7 ??? 3.5 ??? 6.4 cm (previously 2.7 ??? 2.2 ??? 5.1 cm), with a pigtail drainage catheter in situ and mild adjacent fat stranding. Adrenal glands: Normal morphology bilaterally. Kidneys and ureters: Kidneys within normal size and contour; no hydronephrosis or hydroureter; no nephrolithiasis. Urinary bladder: Dueñas catheter in place with small intraluminal gas foci, likely iatrogenic; bladder otherwise unremarkable. Stomach and bowel: Right iliac fossa ileostomy defect ( 2.4 cm) and postoperative bowel changes, stable. No evidence of bowel obstruction, enteritis, or colitis. Peritoneum and mesentery: New minimal free fluid predominantly along the greater curvature of the stomach with mild mesenteric edema (anasarca). No free intraperitoneal air. Lymph nodes: No pathologic abdominopelvic lymphadenopathy. Vasculature: Abdominal aorta normal in caliber. Abdominal wall/soft tissues: Expected postoperative changes at the ostomy site; otherwise unremarkable. Osseous structures: No acute or aggressive osseous abnormality; mild degenerative changes in the visualized spine. Impression: * Infrasplenic collection with indwelling pigtail drain has increased in size compared with 08/29/2025 (now 2.7 ??? 3.5 ??? 6.4 cm from 2.7 ??? 2.2 ??? 5.1 cm) with mild surrounding fat stranding???ongoing collection persists. Drain removal is not advised at this time based on interval enlargement; recommend interventional radiology review for catheter position/patency, consideration of catheter upsizing or repositioning, and correlation with output and culture. * New small bilateral pleural effusions with dependent basilar atelectasis. Monitor clinically; consider diuresis or follow-up imaging as indicated. * Cirrhotic hepatic morphology, unchanged. * Decompressed gallbladder with cholecystostomy tube in place, stable; no biliary ductal dilatation. * Minimal ascites and mild mesenteric edema (anasarca), new from prior. * Dueñas catheter with small intravesical gas, likely iatrogenic. * No bowel obstruction, hydronephrosis, or nephrolithiasis identified. /[facility] DICTATED BY: EDWIGE LEDESMA MD DATE: 09/01/252258 ELECTRONICALLY SIGNED BY: EDWIGE LEDESMA MD DATE: 09/01/252258 PATIENT: DALLAS BUCHANAN MR#: [id number] : 1970 SEX: F AGE: 55 LOCATION: 2CV ORDER 1130 STATUS: ADM IN REPORT#: [id number] SERVICE 1127 REASON: Left lower lung lobe opacities ORDERING PHYSICIAN: SONJA PERALTA MD PROCEDURE: CHEST WO - CT CHEST W/O CONTRAST EXAM: CT CHEST WITHOUT INTRAVENOUS CONTRAST Technique: Helical computed tomography of the chest from thoracic inlet through the upper abdomen without intravenous contrast, with axial images and coronal/sagittal reformations. Dose optimization performed in accordance with ALARA. Clinical Information: Left lower lung lobe opacities. Comparison: Chest radiograph dated 09/01/2025 at 05:46 EDT. Findings: Soft tissues: Unremarkable. Lungs and large airways: Central airways are patent. Subsegmental consolidation in the posterior segments of both lower lobes. Additional subsegmental consolidation in the superior segment of the left upper lobe. Linear atelectatic bands in the superior lingular segment and posterior segment of the left upper lobe. A calcified pulmonary nodule measures 5 mm in the right lower lobe (series 3, image 29). Pleura: Minimal bilateral pleural effusions. No pneumothorax. Heart and pericardium: Cardiac size within normal limits. No pericardial effusion. Aorta: Normal course and caliber on this noncontrast study. Pulmonary arteries: Evaluation limited without contrast; no large central filling defect is seen on this noncontrast exam. Lymph nodes: No pathologically enlarged mediastinal or hilar lymph nodes. Mediastinum and toya: No mass identified. Chest wall and lower neck: No acute abnormality. Bones/joints: No acute osseous abnormality. Upper abdomen: Visualized portions without acute abnormality; detailed abdominal findings are reported separately. Impression: * Subsegmental consolidation in the posterior segments of both lower lobes and in the superior segment of the left upper lobe with minimal bilateral pleural effusions???most compatible with multifocal atelectasis versus infection/aspiration in the appropriate clinical context. Recommend clinical correlation and short-interval follow-up chest imaging to document resolution. * Benign-appearing calcified pulmonary nodule in the right lower lobe measuring 5 mm (series 3, image 29), consistent with a granuloma; no additional suspicious nodules identified. * No pneumothorax or acute cardiomediastinal abnormality identified on this noncontrast examination. /[facility] DICTATED BY: EDWIGE LEDESMA MD DATE: 09/01/252255 ELECTRONICALLY SIGNED BY: EDWIGE LEDESMA MD DATE: 09/01/252255 PATIENT: DALLAS BUCHANAN MR#: [id number] : 1970 SEX: F AGE: 55 LOCATION: 2CV ORDER 99 STATUS: ADM IN REPORT#: [id number] SERVICE 0600 REASON: hypoxic ORDERING PHYSICIAN: LOBO RICKS PROCEDURE: CXR1VW - CHEST 1VW EXAM: CR Chest, 1 View (Portable, Supine). CLINICAL HISTORY: Chest pain. COMPARISON: CR Chest, 2 View ??? 08/31/2025 01:13 AM EDT. FINDINGS: LUNGS: Mild prominence of bronchovascular markings in bilateral lower zone. Area of haziness in left lower zone. Lungs are clear. No focal consolidation, pulmonary edema, or acute infiltrate. PLEURAL SPACES: No pleural effusion or pneumothorax. MEDIASTINUM: Cardiac size and mediastinal contours within normal limits. Right internal jugular central venous catheter remains in similar position with the tip projecting over the distal superior vena cava, unchanged from prior. BONES: No acute osseous abnormality. LINES/DEVICES: Right IJ central venous catheter as described. Monitoring leads noted. No new devices identified. IMPRESSION: * Stable position of right IJ central venous catheter with tip at distal SVC. * Area of haziness in left lower zone likely airspace opacity-New finding compared to previous radiograph. * Mild prominence of bronchovascular markings in bilateral lower zone-New finding compared to previous radiograph. Signed By: EDWIGE LEDESMA M.D. /[facility] DICTATED BY: TOBI LEAHY MD DATE: 09/01/251518 ELECTRONICALLY SIGNED BY: TOBI LEAHY MD DATE: 09/01/251518 PATIENT: DALLAS BUCHANAN MR#: [id number] : 1970 SEX: F AGE: 55 LOCATION: 2CV ORDER 2300 STATUS: ADM IN REPORT#: [id number] SERVICE 0600 REASON: hypoxic ORDERING PHYSICIAN: LOBO RICKS PROCEDURE: CXR1VW - CHEST 1VW EXAM: CR Chest, 1 View (Portable, Supine). CLINICAL HISTORY: Chest pain. COMPARISON: CR Chest, 2 View ??? 08/30/2025 01:13 AM EDT. FINDINGS: LUNGS: Lungs are clear. No focal consolidation, pulmonary edema, or acute infiltrate. PLEURAL SPACES: No pleural effusion or pneumothorax. MEDIASTINUM: Cardiac size and mediastinal contours within normal limits. Right internal jugular central venous catheter remains in similar position with the tip projecting over the distal superior vena cava, unchanged from prior. BONES: No acute osseous abnormality. LINES/DEVICES: Right IJ central venous catheter as described. Monitoring leads noted. No new devices identified. IMPRESSION: * Stable position of right IJ central venous catheter with tip at distal SVC. * No pneumothorax or acute cardiopulmonary abnormality. * No significant interval change compared with 08/30/2025 . /[place] DICTATED BY: EDWIGE LEDESMA MD DATE: 08/31/251851 ELECTRONICALLY SIGNED BY: EDWIGE LEDESMA MD DATE: 08/31/251851 PATIENT: DALLAS BUCHANAN MR#: [id number] : 1970 SEX: F AGE: 55 LOCATION: 2CV ORDER 8 STATUS: ADM IN REPORT#: [id number] SERVICE 99 REASON: severe renal failure ORDERING PHYSICIAN: BRADEN CONTRERAS MD PROCEDURE: RENAL - US RENAL SONOGRAM EXAM: RENAL AND URINARY BLADDER ULTRASOUND Technique: Grayscale and color Doppler sonography of both kidneys and the urinary bladder was performed. Study quality is adequate. Evaluation of the bladder and ureteral jets is limited by decompression from an indwelling catheter. Clinical Information: Severe renal failure. Findings: Right kidney: Measures 10.3 ??? 5.3 ??? 4.2 centimeters. Renal cortical thickness and echogenicity are within expected limits for technique. No focal mass is identified. No hydronephrosis. No renal calculi. No perinephric fluid collection. Left kidney: Measures 11.0 ??? 4.8 ??? 3.2 centimeters. The renal parenchyma is diffusely increased in echogenicity relative to the adjacent liver and spleen. No focal mass is identified. No hydronephrosis. No renal calculi. No perinephric fluid collection. Urinary bladder: Decompressed with a Dueñas catheter in situ. Bladder wall measures approximately 3 millimeters, which may appear relatively thick due to underdistention. No intraluminal mass or debris is identified on the limited evaluation. Impression: * Left kidney demonstrates increased parenchymal echogenicity, a nonspecific finding commonly associated with medical renal disease in the setting of renal failure. * No hydronephrosis or renal calculi identified bilaterally. * Decompressed urinary bladder with Dueñas catheter in place; apparent wall thickening likely related to underdistention. /[facility] DICTATED BY: EDWIGE LEDESMA MD DATE: 08/29/252248 ELECTRONICALLY SIGNED BY: EDWIGE LEDESMA MD DATE: 08/29/252248 PATIENT: DALLAS BUCHANAN MR#: [id number] : 1970 SEX: F AGE: 55 LOCATION: 2CV ORDER 1540 STATUS: ADM IN REPORT#: [id number] SERVICE 38 REASON: central line placement ORDERING PHYSICIAN: LOBO RICKS PROCEDURE: CXR1VW - CHEST 1VW EXAM: CR Chest, 2 View. CLINICAL HISTORY: central line placement COMPARISON: None provided. FINDINGS: Right IJ central venous catheter tip projects at the distal SVC. Right peripheral line overlies expected location of the right axillary vessels. LUNGS: The lungs show no infiltrate or other acute finding. Mild left basilar atelectasis. PLEURAL SPACES: No pleural effusion or pneumothorax. MEDIASTINUM: Cardiac size and mediastinal contours within normal limits. BONES: No aggressive appearing osseous lesion seen. Pigtail drainage catheter overlies the right upper quadrant. IMPRESSION: 1. Right IJ central venous catheter tip appropriately positioned in the distal SVC. 2. No acute cardiopulmonary findings. /[facility] DICTATED BY: ELDON MILLER Jr., MD DATE: 08/29/251744 ELECTRONICALLY SIGNED BY: ELDON MILLER Jr., MD DATE: 08/29/251744 PATIENT: DALLAS BUCHANAN MR#: [id number] : 1970 SEX: F AGE: 55 LOCATION: 2CV ORDER STATUS: ADM IN REPORT#: [id number] SERVICE 7 REASON: coffee ground emesis, hx of abdominal drain, nausea, vomiting, hx of cirrho ORDERING PHYSICIAN: BRADEN CONTRERAS MD PROCEDURE: ABD PEL WO - CT ABDOMEN/PELVIS W/O CONTRAST EXAM: CT Abdomen and Pelvis Without IV contrast CLINICAL HISTORY: coffee ground emesis, hx of abdominal drain, nausea, vomiting, hx of cirrho TECHNIQUE: Axial computed tomography images of the abdomen and pelvis without intravenous contrast. CONTRAST: No IV contrast. COMPARISON: Study dated 08/23/25. FINDINGS: LUNG BASES: Tiny calcified nodules in the posterior basal segment of the right lower lobe. There is mild dependent airspace disease within the bilateral lower lobes that is presumed to reflect atelectasis. No pleural effusions are seen. LIVER: There is cirrhotic hepatic morphology. Several small esophageal varices are noted. GALLBLADDER AND BILE DUCTS: The gallbladder is decompressed with a cholecystostomy tube in place. No biliary ductal dilatation is evident. PANCREAS: Unremarkable. SPLEEN: 2.7 x 2.2 x 5.1 cm infrasplenic collection with adjacent fat stranding and pigtail tube in place. ADRENAL GLANDS: Unremarkable. KIDNEYS, URETERS, AND BLADDER: The kidneys appear within normal limits. There is no hydronephrosis or hydroureter. No urinary calculi are seen. Dueñas's bulb in the urinary bladder with few air foci. STOMACH AND BOWEL: 2.4 cm ileostomy defect in the right iliac fossa and postoperative changes in the bowel loops. No evidence of bowel obstruction. No evidence suggesting enteritis or colitis. APPENDIX: No evidence of acute appendicitis on CT examination. PERITONEUM: No free fluid. No free air. LYMPH NODES: No lymphadenopathy is evident. REPRODUCTIVE: Unremarkable as visualized. VASCULATURE: No evidence of abdominal aortic aneurysm. BONES: No aggressive appearing osseous lesion. No acute osseous pathology evident. Mild degenerative changes in the spine. IMPRESSION: 1. Cirrhotic hepatic morphology. Several small esophageal varices are noted. 2. 2.7 x 2.2 x 5.1 cm infrasplenic collection with adjacent fat stranding and pigtail tube in place. 3. Cholecystostomy tube in decompressed gallbladder. 4. Ileostomy in right iliac fossa with postoperative changes. /[facility] DICTATED BY: ELDON MILLER Jr., MD DATE: 08/29/25 1620 ELECTRONICALLY SIGNED BY: ELDON MILLER Jr., MD DATE: 08/29/251619 PATIENT: DALLAS BUCHANAN MR#: [id number] : 1970 SEX: F AGE: 55 LOCATION: EDHIP ORDER 6 STATUS: ADM IN REPORT#: [id number] SERVICE 08 REASON: sob ORDERING PHYSICIAN: MILAD WYNN MD PROCEDURE: CXR1VW - CHEST 1VW EXAM: CR Chest, 1 View. CLINICAL HISTORY: sob COMPARISON: None provided. FINDINGS: LUNGS: There is no mass, infiltrate, or acute pulmonary abnormality. Mild left basilar atelectasis and/or parenchymal scarring. PLEURAL SPACES: No evidence of pleural effusion or pneumothorax. MEDIASTINUM: Cardiac size and mediastinal contours within normal limits. BONES: No aggressive appearing osseous lesion seen. IMPRESSION: No acute cardiopulmonary pathology is evident. /[facility] DICTATED BY: ELDON MILLER Jr., MD DATE: 08/29/251103 ELECTRONICALLY SIGNED BY: ELDON MILLER JDATE: 08/29/251103 ASSESSMENT: Severe hyperkalemia Anemia Acute renal failure Hyponatremia Acute upper GI bleeding- Hematemesis, dark output from ileostomy bag, POA, Improving Acute DVT of right axillary vein and right cephalic vein High output from ileostomy bag, not POA Hemorrhagic shock versus hypovolemic shock, POA, Resolved Hypovolemic hypochloremic hyponatremia, POA, Resolved Severe hyperkalemia, POA, Resolved Hyperammonemia, POA, Improving Lactic acidosis, POA, Resolved Hyperphosphatemia, POA, Resolved Starvation Ketoacidosis, POA Rule out occult sepsis, POA Recent extended hospitalization in [facility], 07/20/2025- 08/25/2025 for sepsis, acute abdomen, POA Severe Dehydration, POA, Improving History of esophageal varices, POA Acute Decompensated liver cirrhosis, POA Hx of acute cholecystitis, s/p cholecystostomy tube placement on 08/02/2025. Perisplenic abscess, s/p CT-guided drainage placement on 08/09/2025. 2.7 x 2.2 x 5.1 cm infrasplenic collection History of gastritis, POA Hx of Generalized peritonitis with ESBL E coli infection, POA Moderate Protein calorie malnutrition POA History of bilious peritonitis with small colonic anastomosis perforation s/p diagnostic laparoscopy, abdominal washout, ileostomy creation by Dr. Jhaveri, 07/21/2025 Hx of DM II, POA Recent colovesical fistula repair with sigmoid colon resection and anastomosis on PLAN: Labs, diagnostic, radiologic exams reviewed and interpreted by myself and supervising physician. We have reviewed external records in detail Pending EGD planned for tomorrow Require close monitoring of renal function and electrolytes Order CBC, CMP, and electrolytes in am Continue with antibiotics BiPAP as necessary, for respiratory distress Monitor blood pressure adjust medication doses as needed Avoid hypotensive episodes May use Dilaudid 0.5 mg IV every 6 hours as needed for severe pain Monitor blood sugars Strict intake, output, and daily weight should be monitored Please renally adjust medications Avoid nephrotoxic and nonsteroidal drugs Avoid contrast if possible Will continue to monitor renal function, anemia, electrolytes Treatment plan discussed with patient Questions were answered We have discussed with the other team physicians in detail about the care plan We will continue to monitor the patient closely ATTESTATION BY PHYSICIAN I have seen and examined the patient. I reviewed the documentation, medical decision making, and treatment plan as noted by the mid-level provider above. I agree with the findings and plan of care. CIELO PORTILLO MD, [facility] Sep 13, 2025 12:52
--- NOTE | 2025-09-13 15:23 | PN ---
Interval history: This 55-year-old female seen in her room resting comfortably No acute events reported overnight Patient is scheduled for EGD tomorrow due to required time needed off of Eliquis Ostomy no longer having bloody output Labs and vitals stable Patient tolerating diet No other acute events reported at this time Physical exam General: Awake alert and oriented Heart: Regular rate and rhythm} Lungs: Clear to auscultation no distress Abdomen: [Soft, nontender, nondistended ostomy noted Assessment Plan: From surgical standpoint no further intervention likely needed We will await EGD findings before clearing patient for discharge Continue to flush percutaneous drain b.i.d. Continue with diet as tolerated Dr. Gann to be updated in patient's status Nursing report any further acute events Surgical case has been discussed with my supervising physician in the above plan was formulated and agreed upon We appreciate the hospitalist team for us to participate in patient's care. Greater than 45 minutes of time spent patient, reviewing chart, working on documentation Vitals/Labs Vital Signs Date Time Temp Pulse Resp B/P (MAP) Pulse Ox O2 Delivery O2 Flow Rate FiO2 09/13/25 15:02 98 Room Air* 0 21 09/13/25 11:38 98.1 89 18 141/74 Laboratory Tests 09/13/25 04:21 Medications Current Medications Octreotide Acetate 50 mcg ONCE ONCE IV Last administered on 08/29/25at 09:02; Start 08/29/25 at 08:30; Stop 08/29/25 at 08:31; Status DC Octreotide Acetate 1250 mcg/ Sodium Chloride 250 ml @ 0 mls/hr PROTOCOL IV Last administered on 08/31/25at 10:18; Start 08/29/25 at 08:30; Stop 09/01/25 at 10:32; Status DC Pantoprazole Sodium 80 mg ONCE ONCE IVP Last administered on 08/29/25at 09:02; Start 08/29/25 at 08:30; Stop 08/29/25 at 08:31; Status DC Pantoprazole Sodium 80 mg/ Sodium Chloride 100 ml @ 10 mls/hr Q10H IV Last administered on 09/01/25at 05:50; Start 08/29/25 at 08:30; Stop 09/01/25 at 10:32; Status DC Promethazine HCl 25 mg ONCE ONCE IM Last administered on 08/29/25at 09:07; Start 08/29/25 at 08:30; Stop 08/29/25 at 08:33; Status DC Sodium Chloride 1,000 ml @ 999 mls/hr Q1H1M IV; Start 08/29/25 at 09:30; Stop 08/29/25 at 09:06; Status DC Calcium Gluconate 1 gm/Sodium Chloride 110 ml @ 110 mls/hr ONCE ONCE IV Last administered on 08/29/25at 09:41; Start 08/29/25 at 09:30; Stop 08/29/25 at 10:29; Status DC Dextrose 50 ml ONCE ONCE IV; Start 08/29/25 at 09:30; Stop 08/29/25 at 09:27; Status DC Insulin Human Regular 5 unit ONCE ONCE IV Last administered on 08/29/25at 09:57; Start 08/29/25 at 09:30; Stop 08/29/25 at 09:31; Status DC Albuterol Sulfate 10 mg ONCE ONCE IH Last administered on 08/29/25at 09:37; Start 08/29/25 at 09:30; Stop 08/29/25 at 09:31; Status DC Lactulose 200 gm ONCE ONCE IN; Start 08/29/25 at 09:30; Stop 08/29/25 at 09:36; Status DC Calcium Gluconate 1 gm ONCE IV; Start 08/29/25 at 09:30; Stop 08/29/25 at 09:23; Status DC Sodium Chloride 1,000 ml @ 125 mls/hr Q8H IV; Start 08/29/25 at 09:30; Stop 08/29/25 at 09:57; Status DC Insulin Human Regular 5 unit ONCE IV; Start 08/29/25 at 09:30; Stop 08/29/25 at 09:25; Status DC Dextrose 50 ml ONCE ONCE IV Last administered on 08/29/25at 09:47; Start 08/29/25 at 09:30; Stop 08/29/25 at 09:31; Status DC Sodium Bicarbonate 50 meq ONCE ONCE IV Last administered on 08/29/25at 09:47; Start 08/29/25 at 09:30; Stop 08/29/25 at 09:31; Status DC Pharmacy Profile Note 1 each ONCE MISC; Start 08/29/25 at 09:30; Stop 08/29/25 at 09:35; Status DC Ondansetron HCl 4 mg Q6H PRN IVP Last administered on 09/09/25at 10:42; Start 08/29/25 at 09:30; Stop 09/28/25 at 09:29 Thiamine HCl 200 mg Q12H IVP Last administered on 09/02/25at 08:56; Start 08/29/25 at 09:30; Stop 09/02/25 at 09:30; Status DC Meropenem 500 mg Q24H IVPB Last administered on 08/30/25at 09:46; Start 08/29/25 at 10:00; Stop 08/31/25 at 09:59; Status DC Sodium Chloride 1,000 ml @ 0 mls/hr ONCE ONCE IV Last administered on 08/29/25at 09:47; Start 08/29/25 at 10:00; Stop 08/29/25 at 10:01; Status DC Dextrose 50 ml AD PRN IV; Start 08/29/25 at 10:00; Stop 09/28/25 at 09:59 Glucagon 1 mg AD PRN IM; Start 08/29/25 at 10:00; Stop 09/28/25 at 09:59 Acetaminophen 650 mg Q6H PRN PO; Start 08/29/25 at 10:00; Stop 09/28/25 at 09:59 Albuterol 1 udvial Q6H PRN IH; Start 08/29/25 at 10:00; Stop 09/28/25 at 09:59 Sodium Bicarbonate 50 meq ONCE ONCE IV Last administered on 08/29/25at 10:12; Start 08/29/25 at 10:00; Stop 08/29/25 at 10:05; Status DC Sodium Bicarbonate 150 meq/Dextrose 1,150 ml @ 125 mls/hr Q9H12M IVP Last administered on 08/30/25at 08:07; Start 08/29/25 at 10:00; Stop 08/30/25 at 10:12; Status DC Insulin Human Regular INSULIN SLIDING SCAL... ACHS SQ Last administered on 09/12/25at 12:49; Start 08/29/25 at 11:30; Stop 09/28/25 at 11:29 Sodium Chloride 1,000 ml @ 0 mls/hr ONCE ONCE IV Last administered on 08/29/25at 13:44; Start 08/29/25 at 11:00; Stop 08/29/25 at 11:06; Status DC Sodium Chloride 1,000 ml @ 200 mls/hr PROTOCOL IV; Start 08/29/25 at 12:30; Stop 08/29/25 at 16:05; Status DC Magnesium Sulfate 50 ml @ 0 mls/hr PROTOCOL IV; Start 08/29/25 at 12:30; Stop 08/29/25 at 16:05; Status DC Insulin Human Regular 100 unit/ Sodium Chloride 101 ml @ 0 mls/hr PROTOCOL IV; Start 08/29/25 at 12:30; Stop 08/29/25 at 16:05; Status DC Dextrose/Sodium Chloride 1,000 ml @ 0 mls/hr AD IV; Start 08/29/25 at 12:30; Stop 08/29/25 at 16:05; Status DC Potassium Chloride 100 ml @ 50 mls/hr AD PRN IV Last administered on 09/02/25at 06:26; Start 08/29/25 at 12:30; Stop 09/28/25 at 12:29 Lidocaine HCl 20 ml STK-MED ONCE .ROUTE; Start 08/29/25 at 14:24; Stop 08/29/25 at 14:25; Status DC Lidocaine HCl 20 ml STK-MED ONCE .ROUTE Last administered on 08/29/25at 15:59; Start 08/29/25 at 14:25; Stop 08/29/25 at 14:25; Status DC Sodium Chloride 1,000 ml @ 0 mls/hr Q0M IV; Start 08/29/25 at 16:00; Stop 08/29/25 at 16:03; Status DC Sodium Chloride 1,000 ml @ 0 mls/hr Q0M IV Last administered on 08/29/25at 16:10; Start 08/29/25 at 16:00; Stop 09/01/25 at 08:01; Status DC Sodium Chloride 250 ml @ 0 mls/hr AD IV; Start 08/29/25 at 17:30; Stop 09/28/25 at 17:29 Sodium Chloride 1,000 ml @ 0 mls/hr ONCE ONCE IV Last administered on 08/29/25at 19:57; Start 08/29/25 at 17:30; Stop 08/29/25 at 17:35; Status DC Sodium Chloride 1,000 ml @ 150 mls/hr Q6H40M IV Last administered on 08/31/25at 16:16; Start 08/29/25 at 18:30; Stop 09/01/25 at 09:29; Status DC Dexmedetomidine/ Sodium Chloride 400 mcg STK-MED ONCE IV; Start 08/29/25 at 19:56; Stop 08/29/25 at 19:56; Status DC Norepinephrine Bitartrate 32 mg/ Sodium Chloride 250 ml @ 0 mls/hr Q0M STAT IV Last administered on 08/29/25at 21:13; Start 08/29/25 at 21:01; Stop 08/29/25 at 21:07; Status DC Magnesium Sulfate 50 ml @ 0 mls/hr PROTOCOL IV Last administered on 09/13/25at 05:22; Start 08/30/25 at 10:00; Stop 09/29/25 at 09:59 Morphine Sulfate 2 mg ONCE ONCE IVP Last administered on 08/31/25at 02:24; Start 08/31/25 at 02:30; Stop 08/31/25 at 02:31; Status DC Potassium Phosphate 250 ml @ 42 mls/hr PROTOCOL ONCE IV Last administered on 08/31/25at 10:11; Start 08/31/25 at 09:00; Stop 08/31/25 at 14:57; Status DC Multivitamins/ Minerals 10 ml/ Chromium/Copper/ Manganese/Zinc 3 ml/Amino Acids/ Electrolytes/ Dextrose 2,000 ml @ 83 mls/hr ONCE ONCE IV Last administered on 08/31/25at 20:53; Start 08/31/25 at 20:00; Stop 09/01/25 at 11:25; Status DC Midodrine 10 mg BID PO; Start 09/01/25 at 09:00; Stop 08/31/25 at 18:36; Status DC Midodrine 10 mg ONCE ONCE PO Last administered on 08/31/25at 18:36; Start 08/31/25 at 18:30; Stop 08/31/25 at 18:31; Status DC Midodrine 10 mg TID PO Last administered on 09/08/25at 16:16; Start 09/01/25 at 09:00; Stop 09/08/25 at 17:20; Status DC Pharmacy Profile Note 1 each ONCE MISC; Start 08/31/25 at 23:30; Stop 08/31/25 at 23:17; Status DC Meropenem 500 mg Q24H IVPB Last administered on 09/09/25at 23:40; Start 08/31/25 at 23:30; Stop 09/10/25 at 02:29; Status DC Morphine Sulfate 2 mg Q4H PRN IVP Last administered on 09/05/25at 04:28; Start 09/01/25 at 05:30; Stop 09/05/25 at 13:19; Status DC Propofol 200 mg STK-MED ONCE IV; Start 09/01/25 at 09:53; Stop 09/01/25 at 09:53; Status DC Ketamine HCl 50 mg STK-MED ONCE .ROUTE; Start 09/01/25 at 09:53; Stop 09/01/25 at 09:53; Status DC Pantoprazole Sodium 40 mg BID IVP Last administered on 09/03/25at 09:16; Start 09/01/25 at 21:00; Stop 09/03/25 at 14:32; Status DC Lactulose 20 gm TID PO Last administered on 09/05/25at 08:06; Start 09/01/25 at 14:00; Stop 09/05/25 at 10:44; Status DC Multivitamins/ Minerals 10 ml/ Amino Acids/ Electrolytes/ Dextrose 2,000 ml @ 83 mls/hr ONCE ONCE IV Last administered on 09/01/25at 22:13; Start 09/01/25 at 20:00; Stop 09/02/25 at 20:05; Status DC Magnesium Sulfate 50 ml @ 0 mls/hr PROTOCOL IV; Start 09/02/25 at 13:30; Stop 09/02/25 at 13:04; Status DC Magnesium Sulfate 50 ml @ 0 mls/hr PROTOCOL IV; Start 09/03/25 at 08:00; Stop 09/03/25 at 07:43; Status DC Pantoprazole Sodium 40 mg DAILY PO Last administered on 09/05/25at 08:06; Start 09/04/25 at 09:00; Stop 09/06/25 at 00:03; Status DC Duloxetine HCl 30 mg BID PO Last administered on 09/09/25at 10:37; Start 09/03/25 at 21:00; Stop 09/09/25 at 11:10; Status DC Psyllium Hydrophilic Mucilloid 1 tbs TID PO Last administered on 09/11/25at 20:32; Start 09/04/25 at 14:00; Stop 09/12/25 at 16:49; Status DC Cyclobenzaprine HCl 5 mg TID PRN PO; Start 09/05/25 at 11:00; Stop 10/05/25 at 10:59 Home Med (Medroxyprogesterone Acetate (Provera) 1 TAB) DAILY PO; Start 09/06/25 at 09:00; Stop 10/06/25 at 08:59 Atorvastatin Calcium 5 mg HS PO Last administered on 09/12/25at 20:13; Start 09/05/25 at 21:00; Stop 10/05/25 at 20:59 Lactulose 20 gm BID PO Last administered on 09/11/25at 08:16; Start 09/05/25 at 21:00; Stop 09/12/25 at 16:49; Status DC Morphine Sulfate 1 mg Q4H PRN IVP Last administered on 09/06/25at 23:40; Start 09/05/25 at 13:30; Stop 09/07/25 at 11:35; Status DC Lactated Ringer's 1,000 ml @ 100 mls/hr Q10H IV Last administered on 09/06/25at 08:35; Start 09/06/25 at 00:00; Stop 09/06/25 at 18:44; Status DC Pantoprazole Sodium 40 mg BID IVP Last administered on 09/13/25at 09:47; Start 09/06/25 at 09:00; Stop 10/06/25 at 08:59 Enoxaparin Sodium 1 unit Q12H SQ; Start 09/06/25 at 13:30; Stop 09/06/25 at 13:21; Status DC Enoxaparin Sodium 60 mg Q12H SQ Last administered on 09/07/25at 14:29; Start 09/06/25 at 13:30; Stop 09/07/25 at 15:03; Status DC Folic Acid 1 mg DAILY PO Last administered on 09/13/25at 09:47; Start 09/08/25 at 09:00; Stop 10/08/25 at 08:59 Vitamin B Complex 1,000 mcg DAILY PO Last administered on 09/13/25at 09:47; Start 09/08/25 at 09:00; Stop 10/08/25 at 08:59 Sodium Bicarbonate 1,300 mg TID PO Last administered on 09/08/25at 16:15; Start 09/07/25 at 14:00; Stop 09/08/25 at 18:00; Status DC Morphine Sulfate 0.5 mg Q4H PRN IVP Last administered on 09/08/25at 04:27; Start 09/07/25 at 13:30; Stop 09/08/25 at 09:11; Status DC Apixaban 10 mg BID PO Last administered on 09/07/25at 22:06; Start 09/07/25 at 22:00; Stop 09/08/25 at 01:42; Status DC Apixaban 10 mg BID PO; Start 09/08/25 at 09:30; Stop 09/08/25 at 10:13; Status DC Acetaminophen/ Hydrocodone Bitart 2 tab Q4H PRN PO Last administered on 09/13/25at 00:59; Start 09/08/25 at 09:30; Stop 09/13/25 at 09:29; Status DC Apixaban 5 mg BID PO Last administered on 09/11/25at 20:32; Start 09/08/25 at 21:00; Stop 09/13/25 at 08:14; Status DC Midodrine 5 mg TID PO Last administered on 09/09/25at 15:24; Start 09/08/25 at 21:00; Stop 09/10/25 at 08:05; Status DC Melatonin 5 mg ONCE ONCE PO Last administered on 09/08/25at 21:35; Start 09/08/25 at 21:00; Stop 09/08/25 at 21:01; Status DC Morphine Sulfate 0.5 mg Q4H PRN IVP; Start 09/08/25 at 18:00; Stop 09/09/25 at 11:10; Status DC Sodium Bicarbonate 1,300 mg TID PO Last administered on 09/10/25at 10:31; Start 09/09/25 at 09:00; Stop 09/10/25 at 12:00; Status DC Mirtazapine 7.5 mg HS PO Last administered on 09/11/25at 20:31; Start 09/09/25 at 21:00; Stop 09/12/25 at 11:05; Status DC Midodrine 5 mg BID PO Last administered on 09/10/25at 21:42; Start 09/10/25 at 09:00; Stop 09/11/25 at 07:21; Status DC Sodium Bicarbonate 1,300 mg QID PO Last administered on 09/13/25at 13:41; Start 09/10/25 at 17:00; Stop 10/10/25 at 16:59 Midodrine 5 mg DAILY20 PO Last administered on 09/11/25at 20:31; Start 09/11/25 at 20:00; Stop 09/12/25 at 09:00; Status DC Quetiapine Fumarate 25 mg ONCE PRN PO Last administered on 09/13/25at 00:58; Start 09/11/25 at 21:00; Stop 09/13/25 at 08:14; Status DC Mirtazapine 15 mg HS PO Last administered on 09/12/25at 20:13; Start 09/12/25 at 21:00; Stop 10/12/25 at 20:59 Lactulose 20 gm DAILY PO; Start 09/12/25 at 17:00; Stop 09/12/25 at 17:00; Status DC Psyllium Hydrophilic Mucilloid 1 tbs BID PO Last administered on 09/12/25at 17:19; Start 09/12/25 at 17:00; Stop 09/12/25 at 18:00; Status DC BENEDICTO OBRIEN Jr. PAC Sep 13, 2025 15:23
--- NOTE | 2025-09-13 16:05 | PN ---
[facility] PROGRESS NOTE Date of Service: Sep 13, 2025 Time of Service: 15:52 SUBJECTIVE: As per admission notes "50-year-old female with underlying history of type 2 diabetes mellitus, history of liver cirrhosis, prior history of esophageal varices requiring banding in May,, history of robotic sigmoid resection with takedown of colovesical fistula who was recently hospitalized in [facility] from 07/20/2025 - 08/25/2025 patient was found to have bilious peritonitis with 2 mm perforation of colonic anastomosis requiring diagnostic laparoscopy, abdominal washout and drain placement with creation of diverting loop ileostomy. Patient was hospitalized for about one month and subsequently required IR guided drain placement as well. She was just discharged from the hospital on 08/25/2025. Patient's daughter reports that patient was having nausea and vomiting with poor oral intake at home. She started to have coffee-ground emesis today and she also noticed some right streaks of blood with a coffee-ground emesis. Stool has also been dark in the ileostomy bag. Patient is having moderate intensity abdominal pain as well. She has not been taking any NSAIDs. Daughter reports that patient has been very weak since her discharge in very debilitated. Patient denies active chest pain. Denies active shortness of breath. On presentation to the hospital, patient was noted to be afebrile with T-max of 97.5 F, heart rate of 100, blood pressure of 127/91. [place] [address], hemoglobin of 16.4, platelet count of 003525. BMP was repeated twice, BMP showed sodium of 117, potassium 7.0, chloride of 88, CO2 of seven, BUN of 83, creatinine 5.0, blood glucose of 99, calcium 10.4. Blood gas showed pH of 7.28, bicarb of close to eight, CO2 of 18, lactic acid of three. Patient will be admitted to ICU. Patient is presenting with severe renal failure with hyperkalemia and severe metabolic acidosis. Patient also with concerns for upper GI bleeding with coffee-ground emesis. Patient remains critically ill consultation with Intensive Care, Nephrology, GI will be requested. We we will obtain a CT abdomen pelvis without contrast for further evaluation as well. Patient is critically ill. Plan of care was discussed with patient and daughter at bedside" 08/30/2025 Patient was seen and examined at bedside. Her blood pressure has been low, 88/54, heart rate 86. She is currently on Levophed 0.2 Mcg, octreotide, Protonix, sodium bicarbonate drip. She received 2nd hemodialysis session yesterday. As per Nephrology, she will continue to receive dialysis inpatient. Her high anion gap metabolic acidosis is improving with sodium 134, carbon dioxide 31, chloride 96. Her creatinine has trended down from 5-1.8. General surgery consult is on board and we will follow up with their recommendations. Additionally, in the light of history of liver cirrhosis with esophageal varices, her recent hematemesis will be evaluated with GI consult and possible endoscopy. We discussed this with the patient and her family members present besides. Patient is started on Merrem and blood culture, urine cultures show no growth so far. Her lactic acid has trended down from 3.1 to 2.1. 08/31/2025 Patient was seen and examined at bedside in room 214. She continues to be on Levophed 0.1 which is being weaned off. She is also on Sandostatin and Protonix drip. Patient complained of mild pain along the sides of her drain but denied any nausea or episode of vomiting since Saturday. Minimal drainage was noted. Sodium bicarb was discontinued as per Nephrology. Her lab markers have improved with sodium 141, chloride 104, bicarb 32, creatinine 1, BUN 16, ammonia 34. Her urine sodium was less than 20 consistent with prerenal CYNTHIA. We are pending blood and urine culture results. Her total output in the past24 hours has been optimal, 2069. She is on sodium chloride 150 mL/hour. We are following gastroenterology recommendations of possible upper endoscopy in the morning if patient condition remains stable. 09/01/2025 Patient was seen and examined at bedside. She is off vasopressor support and is hemodynamically stable. Her chest x-ray showed opacity in the left lower lobe and we will follow up with CT scan of chest. She is started on 2nd day of ppm today. She successfully underwent EGD which showed small, less than 5 mm, esophageal varices with scar in the lower 3rd of the esophagus. Patient was noted to have portal hypertensive gastropathy which was biopsied. Duodenum was normal during examination. Patient is receiving Merrem and her blood culture and urine cultures have shown no growth so far. Due to her elevated ammonia levels, she will be started on lactulose. We will proceed with caution with respect to normal saline as patient's BNP is elevated. 09/02/2025 The patient has been seen and examined earlier this morning during my rounding, case discussed with the RN, no acute events overnight, blood pressure 118/71, heart rate of 56, afebrile, saturating normal on room air, CBC showing hemoglobin 8.5, hematocrit 36.8, WBC of 4.4, platelet count of 99, sodium 137, potassium 3.8, BUN of 18, creatinine 0.7, magnesium Lasix. Results of blood culture no growth after four days. Urine culture no growth. EGD reviewed, small less than 5 mm esophageal varices with scar in the lower 3rd of the esophagus. Patient with a bottle hypertensive gastropathy, status post biopsy, duodenum was normal during examination. Patient to be downgraded to the medical floor, continue banana bag, continue Protonix 40 mg IV b.i.d.. Plan for possible PEG tube placement. 09/03/2025 Patient was seen and examined at bedside. She has been advanced to GI soft bland diet which she is tolerating really well and having output in her ileostomy bag. As per surgeon, if she continues to tolerate diet, she may not require G-tube placement on discharge. Patient did not complain of any significant pain and seemed to be doing really well. Her cholecystostomy tube was removed but her splenic percutaneous tube is still in position and may require further IR intervention for repositioning due to persistent and mildly increased perisplenic fluid collection. She is receiving lactulose and her ammonia levels have gone down. Her acute renal failure continues to resolve and her vitals are also stable. No growth on urine and blood culture so far. We have shifted her from Protonix IV to p.o. as per GI recommendations. 09/04/2025 Patient was seen and examined at bedside in room 302. She has been tolerating GI soft bland diet, ileostomy output seems very high, liquid consistency and patient will be receiving fiber 3 times a day. Patient may require further IR intervention on Saturday for splenic drain reposition due to persistent and mildly increased perisplenic fluid collection. Vitals are stable, blood and urine culture shows no growth so far. 09/05/2025 Patient was seen and examined at bedside. She is tolerating GI soft bland diet, and her ileostomy output is high although liquid in consistency. We have decreased lactulose to b.i.d. from t.i.d. She continues on fiber 3 times a day as per surgery recommendations to bulk up the stool from the ileostomy in order to decrease the chances of further dehydration from high ileostomy output. Additionally, nodular swelling was appreciated in her right upper extremity which could be concerning for superficial venous thrombosis for which ultrasound Doppler of right upper extremity has been ordered. Patient is currently undergoing bladder training while being catheterized and we will proceed with Dueñas catheter removal as tolerated. 09/06/2025: Patient was seen and examined at bedside in room 302. She is tolerating GI soft bland diet and her ileostomy output has thicker consistency. Nurse reported that there was bright red blood in the ileostomy bag last night however this morning it was free from blood. Venous Doppler of the right upper extremity revealed deep vein thrombosis in right axillary vein and right cephalic vein, advice from Gastroenterology and Hematology was requested to start anticoagulation. Patient was started on Lovenox 1 mg/kg body weight as per Hematology recommendations. Patient will be continued on IV Protonix 40 mg b.i.d. 09/07/2025: Patient was seen and examined at bedside in room 302. Patient complained of generalized body pains however denied specific pain to the right a rm or in abdomen. She is tolerating GI soft bland it and had to 25 mL of total output from ileostomy bag last night as per the primary nurse. During my evaluation in the morning there was no blood observed in the ileostomy bag however around 10:30 a.m. nurse reported blood in the ileostomy bag. Dr. Gonzalez recommended to continue Lovenox and bridge with apixaban 10 mg for 5 days and then transition to apixaban 5 mg for 3 months. Surgery recommended to continue current medical management and await management of DVT for potential discharge. However we will try to connect with them regarding removal of splenic drain or repositioning through IR Services. 09/08/2025: Patient was examined at bedside in room 302. Patient's family mem bers were present during the evaluation of helped us translate. Her ileostomy bag was clear. Patient attendants voiced that patient was more anxious about noticing blood in her ileostomy bag. Patient's hemoglobin and hematocrit have remained stable. Ileostomy bag has been replaced due to leakage. Patient and the family members were educated on proper care for ileostomy bag by the wound care team and was also reinforced that she needs to be on anticoagulation for venous thrombosis for preventing dislodging of clot to lungs and causing fatal pulmonary embolism. Risks and benefits were explained to the patient that patient will need anticoagulation and her hemoglobin will be monitored regularly. Was also encouraged to keep her food intake high and prevent dehydration. We will connect with surgical team for management of splenic catheter drain. 09/09/2025: Patient was examined at the bedside in room 302. Patient had no acute events over night but continues to have difficulty falling asleep and anxiety from the medical complexity. Her hemoglobin is stable 9.2 today. Patient has an abdominal binder in place with ostomy ring for better seal. Patient will undergo CT abdomen for evaluation of removal of splenic catheter drain today. We discontinued her Duloxetine and started 7.5 mg of Mirtazapine at bedtime. 09/10/2025: Patient was examined at the bedside in room 302. Patient had no acut events overnight and reports she had a restful sleep last night. There was no reported leakage of blood into the ileostomy bag. Patient still has the ostomy ring and binder in place. Surgical team recommended considering variceal banding which could be the source of frequent bleeding into the ileostomy bag. They also recommended to keep the splenic catheter drain in place for continued perisplenic fluid. Nurse was notified to call GI team for further recommendations. We will continue to taper her midodrine in the subsequent days as she is maintaining good blood pressure. 09/11/2025: Patient was examined at bedside in room 302 with daughter at bedside. Patient reports that she still continues to have restless nights due to anxiety. There was no blood in the ileostomy bag noted over the last night however bag has to be replaced due to leakage. Currently pending GI recommendations for evaluation of varices for potential banding. Hemoglobin remained stable. Daughter expressed concerns about severe anxiety causing her to not eat, not ambulate, and unable to express fears due to the medical complexities involved. We ordered a tele psych consult for evaluation of severe anxiety and ordered Seroquel PRN for insomnia and we will continue mirtazapine 7.5 mg everyday. We will obtain recommendations from Gastroenterology on Saturday. In addition we reinforced to the daughter that patient's hemoglobin is being monitored on a daily basis and bleeding in ileostomy bag should not be a concern for anxiety and reiterated to explain this to her mother. Also enco uraged the patient to ambulate in the hallways and increase her dietary intake. 09/12/2025: Patient is seen in the room 302. Thid morning tele psych consultation was done. Gave following recommendations that patient is not suicidal homicidal or psychotic. Advised Remeron to [address] Sol called yesterday night to hold Eliquis for the possible EGD. So Eliquis held at least 3 days before the procedure. Changed ileostomy bag due to bag is leaking. General surgery recommends following- discontinue thickener, decrease lactulose to q.day, decrease Metamucil to b.i.d.. 09/13/2025: Patient is comfortably resting in her room. No acute events were reported overnight by the nursing staff. The patient denies melena, blood in the ileostomy bag, nausea, vomiting, or hematemesis. Patient is scheduled for EGD tomorrow. Eliquis was held starting yesterday to allow adequate time off anticoagulation before the procedure. The ileostomy no longer shows any bloody output. The patient reports tolerating diet well. The surgical team has evaluated her and advised that no further surgical intervention is required. She denies nausea, vomiting, or abdominal pain. Her ammonia level is 74, and she is receiving lactulose. Hemoglobin is stable at 9.1 g/dL. REVIEW OF SYSTEMS CONSTITUTIONAL: malaise, tolerating diet well NEUROLOGICAL: Denies headache, motor weakness, sensory deficit, vertigo/spinning sensation, gait abnormalities, or tremors. ENT: No hearing loss, otalgia, otorrhea, rhinitis, rhinorrhea, hoarseness, or s ore throat. CARDIOVASCULAR: Denies any exertional angina, dyspnea on exertion, orthopnea, paroxysmal nocturnal dyspnea, palpitations, life-threatening arrhythmias, claudication. PULMONARY: Denies any shortness of breath, cough, phlegm/sputum, hemoptysis, pleuritic chest pain. SLEEP: Denies morning headaches, daytime somnolence or napping. Denies difficulty falling asleep, staying asleep, waking from sleep. Denies knowledge of snoring. GASTROINTESTINAL: Denies nausea, vomiting, abdominal pain, melena, coffee ground emesis PHYSICAL EXAM GENERAL APPEARANCE: The patient is awake, alert, and oriented, answering to all questions with very mild pain around her drains. NEUROLOGICAL: Cranial nerves II-XII grossly intact. Neurological examination is non focal with spontaneous movement of upper and lower extremities HEENT: Face is symmetric. Pupils are equal and reactive. Extraocular movements are intact. NECK: Supple. No thyromegaly. No submental, submandibular, pre-/postauricular, occipital or supraclavicular lymphadenopathy. CHEST: Normal chest expansion. No Telemetry. LUNGS: Absence of any rales, rhonchi or any wheezing. CARDIOVASCULAR: Regular. S1 and S2 normal. No appreciable rubs, murmurs or gallops. ABDOMEN: no rebound noted, there is perisplenic abdominal drain noted with ileostomy bag, ostomy ring and abdominal binder. : Deferred. Currently catheterized. EXTREMITIES: Swelling in right upper extremity. Mild ecchymosis. Vital Signs (last 8hr) Date Time Temp Pulse Resp B/P (MAP) Pulse Ox O2 Delivery O2 Flow Rate FiO2 09/13/25 15:45 97.3 81 18 136/91 98 Room Air 09/13/25 15:02 98 Room Air* 0 21 09/13/25 11:38 98.1 89 18 141/74 98 Room Air 09/13/25 08:00 97.5 88 18 135/72 98 LABS: Laboratory: Test 09/13/25 15:32 09/13/25 04:21 09/12/25 04:33 Range/Units Whole Blood Glucose 151 H 70-110 MG/DL White Blood Count 4.9 4.8-10.8 K/uL Red Blood Count 2.90 L 4.00-5.50 MIL/uL Hemoglobin 9.1 L 12.0-16.0 g/dL Hematocrit 27.8 L 36-48 % Mean Corpuscular Volume 95.9 79-99 fL Mean Corpuscular Hemoglobin 31.4 27.0-33.0 pg Mean Corpuscular Hemoglobin Concent 32.7 32.0-36.0 g/dL Red Cell Distribution Width 18.8 H 11.0-15.5 % Platelet Count 188 130-400 K/uL Mean Platelet Volume 9.7 7.5-10.5 fL Nucleated Red Blood Cells 0.0 0.0-0.19 % Sodium Level 132 L 136-145 mmol/L Potassium Level 3.9 3.5-5.1 mmol/L Chloride Level 104 101-111 mmol/L Carbon Dioxide Level 20 L 21-32 mmol/L Blood Urea Nitrogen 18 7-18 mg/dL Creatinine 1.1 H 0.5-1.0 mg/dL Glomerular Filtration Rate Calc 59 >90 mL/min Random Glucose 138 H 70-105 mg/dL Total Calcium 8.6 8.5-10.1 mg/dL Magnesium Level 1.70 L 1.80-2.40 mg/dL Total Bilirubin 0.4 # 0.2-1.0 mg/dL Aspartate Amino Transf (AST/SGOT) 56 H 10-37 U/L Alanine Aminotransferase (ALT/SGPT) 28 12-78 U/L Alkaline Phosphatase 140 H 50-136 U/L Ammonia 74 H 11-32 umol/L Total Protein 6.4 6.0-8.3 g/dL Albumin 2.4 L 3.5-5.0 g/dL Thyroid Stimulating Hormone (TSH) 0.23 #L 0.36-3.74 uIU/mL Free Triiodothyronine (T3) pg/mL 2.38 2.18-3.98 pg/mL Immature Granulocyte % (Auto) 0.7 0-1 % Neutrophils (%) (Auto) 59.6 40.0-77.0 % Lymphocytes (%) (Auto) 26.6 21.0-51.0 % Monocytes (%) (Auto) 7.5 3.0-13.0 % Eosinophils (%) (Auto) 4.9 0.0-8.0 % Basophils (%) (Auto) 0.7 0.0-5.0 % Neutrophils # (Auto) 3.4 1.8-7.7 K/uL Lymphocytes # (Auto) 1.5 1.0-4.8 K/uL Monocytes # (Auto) 0.4 0.1-1.0 K/uL Eosinophils # (Auto) 0.28 0.00-0.70 K/uL Basophils # (Auto) 0.04 0.00-0.20 K/uL Absolute Immature Granulocyte (auto 0.04 0-1 K/uL Current Medications Medications (Trade) Dose Ordered Sig/Gregory Route PRN Reason Start Time Stop Time Status Last Admin Dose Admin Acetaminophen (TYLenol 325MG TAB) 650 mg Q6H PRN PO MILD PAIN (1-3) 08/29/25 10:00 09/28/25 09:59 Acetaminophen/ Hydrocodone Bitart (NORco 5/325MG) 2 tab Q4H PRN PO SEVERE PAIN (7-10) 09/08/25 09:30 09/13/25 09:29 DC 09/13/25 00:59 2 TAB Albuterol (DUOneb) 1 udvial Q6H PRN IH SHORTNESS OF BREATH 08/29/25 10:00 09/28/25 09:59 Apixaban (EliquIS) 5 mg BID PO 09/08/25 21:00 09/13/25 08:14 DC 09/11/25 20:32 5 MG Apixaban (EliquIS) 10 mg BID PO 09/07/25 22:00 09/08/25 01:42 DC 09/07/25 22:06 10 MG Apixaban (EliquIS) 10 mg BID PO 09/08/25 09:30 09/08/25 10:13 DC Atorvastatin Calcium (LIPItor 10MG) 5 mg HS PO 09/05/25 21:00 10/05/25 20:59 09/12/25 20:13 5 MG Calcium Gluconate (Calcium Gluc 1gm Vial) 1 gm ONCE IV 08/29/25 09:30 08/29/25 09:23 DC Cyclobenzaprine HCl (Cyclobenzaprine HCl) 5 mg TID PRN PO muscle spasms 09/05/25 11:00 10/05/25 10:59 Dextrose (D50w) 50 ml AD PRN IV HYPOGLYCEMIA PROTOCOL 08/29/25 10:00 09/28/25 09:59 Dextrose/Sodium Chloride 1,000 ml @ 0 mls/hr AD IV 08/29/25 12:30 08/29/25 16:05 DC Duloxetine HCl (CymbALTA 30 mg CAP) 30 mg BID PO 09/03/25 21:00 09/09/25 11:10 DC 09/09/25 10:37 30 MG Enoxaparin Sodium (Lovenox (Pharmacy To Dose)) 1 unit Q12H SQ 09/06/25 13:30 09/06/25 13:21 DC Enoxaparin Sodium (Lovenox 60mg) 60 mg Q12H SQ 09/06/25 13:30 09/07/25 15:03 DC 09/07/25 14:29 60 MG Folic Acid (FOLic ACID 1 MG TABLET) 1 mg DAILY PO 09/08/25 09:00 10/08/25 08:59 09/13/25 09:47 1 MG Glucagon (Glucagon 1mg Kit) 1 mg AD PRN IM HYPOGLYCEMIA PROTOCOL 08/29/25 10:00 09/28/25 09:59 Home Med (Home Medication) (Medroxyprogesterone Acetate (Provera) 1 TAB) DAILY PO 09/06/25 09:00 10/06/25 08:59 Insulin Human Regular (humuLIN R 100 UNIT/ML 3ML) 5 unit ONCE IV 08/29/25 09:30 08/29/25 09:25 DC Insulin Human Regular (humuLIN R 100 UNIT/ML 3ML) INSULIN SLIDING SCAL... ACHS SQ 08/29/25 11:30 09/28/25 11:29 09/12/25 12:49 2 UNIT Insulin Human Regular 100 unit/ Sodium Chloride 101 ml @ 0 mls/hr PROTOCOL IV 08/29/25 12:30 08/29/25 16:05 DC Lactated Ringer's 1,000 ml @ 100 mls/hr Q10H IV 09/06/25 00:00 09/06/25 18:44 DC 09/06/25 08:35 100 MLS/HR Lactulose (Constulose 20gm/ 30ml Udcup) 20 gm BID PO 09/05/25 21:00 09/12/25 16:49 DC 09/11/25 08:16 20 GM Lactulose (Constulose 20gm/ 30ml Udcup) 20 gm DAILY PO 09/12/25 17:00 09/12/25 17:00 DC Lactulose (Constulose 20gm/ 30ml Udcup) 20 gm TID PO 09/01/25 14:00 09/05/25 10:44 DC 09/05/25 08:06 20 GM Magnesium Sulfate 50 ml @ 0 mls/hr PROTOCOL IV 08/29/25 12:30 08/29/25 16:05 DC Magnesium Sulfate 50 ml @ 0 mls/hr PROTOCOL IV 08/30/25 10:00 09/29/25 09:59 09/13/25 05:22 25 MLS/HR Magnesium Sulfate 50 ml @ 0 mls/hr PROTOCOL IV 09/02/25 13:30 09/02/25 13:04 DC Magnesium Sulfate 50 ml @ 0 mls/hr PROTOCOL IV 09/03/25 08:00 09/03/25 07:43 DC Meropenem (Merrem 500mg) 500 mg Q24H IVPB 08/29/25 10:00 08/31/25 09:59 DC 08/30/25 09:46 500 MG Meropenem (Merrem 500mg) 500 mg Q24H IVPB 08/31/25 23:30 09/10/25 02:29 DC 09/09/25 23:40 500 MG Midodrine (PROAMatine 5 MG TABLET) 5 mg BID PO 09/10/25 09:00 09/11/25 07:21 DC 09/10/25 21:42 5 MG Midodrine (PROAMatine 5 MG TABLET) 5 mg DAILY20 PO 09/11/25 20:00 09/12/25 09:00 DC 09/11/25 20:31 5 MG Midodrine (PROAMatine 5 MG TABLET) 5 mg TID PO 09/08/25 21:00 09/10/25 08:05 DC 09/09/25 15:24 5 MG Midodrine (PROAMatine 5 MG TABLET) 10 mg BID PO 09/01/25 09:00 08/31/25 18:36 DC Midodrine (PROAMatine 5 MG TABLET) 10 mg TID PO 09/01/25 09:00 09/08/25 17:20 DC 09/08/25 16:16 10 MG Mirtazapine (REMeron 15 MG TAB) 7.5 mg HS PO 09/09/25 21:00 09/12/25 11:05 DC 09/11/25 20:31 7.5 MG Mirtazapine (REMeron 15 MG TAB) 15 mg HS PO 09/12/25 21:00 10/12/25 20:59 09/12/25 20:13 15 MG Morphine Sulfate (morPHINE 2MG SYG) 0.5 mg Q4H PRN IVP SEVERE PAIN (7-10) 09/07/25 13:30 09/08/25 09:11 DC 09/08/25 04:27 0.5 MG Morphine Sulfate (morPHINE 2MG SYG) 0.5 mg Q4H PRN IVP SEVERE PAIN (7-10) 09/08/25 18:00 09/09/25 11:10 DC Morphine Sulfate (morPHINE 2MG SYG) 1 mg Q4H PRN IVP SEVERE PAIN (7-10) 09/05/25 13:30 09/07/25 11:35 DC 09/06/25 23:40 1 MG Morphine Sulfate (morPHINE 2MG SYG) 2 mg Q4H PRN IVP SEVERE PAIN (7-10) 09/01/25 05:30 09/05/25 13:19 DC 09/05/25 04:28 2 MG Norepinephrine Bitartrate 32 mg/ Sodium Chloride 250 ml @ 0 mls/hr Q0M STAT IV 08/29/25 21:01 08/29/25 21:07 DC 08/29/25 21:13 0 MLS/HR Octreotide Acetate 1250 mcg/ Sodium Chloride 250 ml @ 0 mls/hr PROTOCOL IV 08/29/25 08:30 09/01/25 10:32 DC 08/31/25 10:18 5 MLS/HR Ondansetron HCl (zoFRAN 4MG INJ) 4 mg Q6H PRN IVP NAUSEA/VOMITING 08/29/25 09:30 09/28/25 09:29 09/09/25 10:42 4 MG Pantoprazole Sodium (PROTonix 40MG INJ) 40 mg BID IVP 09/01/25 21:00 09/03/25 14:32 DC 09/03/25 09:16 40 MG Pantoprazole Sodium (PROTonix 40MG INJ) 40 mg BID IVP 09/06/25 09:00 10/06/25 08:59 09/13/25 09:47 40 MG Pantoprazole Sodium (PROTonix 40MG TAB) 40 mg DAILY PO 09/04/25 09:00 09/06/25 00:03 DC 09/05/25 08:06 40 MG Pantoprazole Sodium 80 mg/ Sodium Chloride 100 ml @ 10 mls/hr Q10H IV 08/29/25 08:30 09/01/25 10:32 DC 09/01/25 05:50 10 MLS/HR Pharmacy Profile Note (Pharmacy Communication) 1 each ONCE MISC 08/29/25 09:30 08/29/25 09:35 DC Pharmacy Profile Note (Pharmacy Communication) 1 each ONCE MISC 08/31/25 23:30 08/31/25 23:17 DC Potassium Chloride 100 ml @ 50 mls/hr AD PRN IV POTASSIUM PROTOCOL 08/29/25 12:30 09/28/25 12:29 09/02/25 06:26 50 MLS/HR Psyllium Hydrophilic Mucilloid (Metamucil) 1 tbs BID PO 09/12/25 17:00 09/12/25 18:00 DC 09/12/25 17:19 1 TBS Psyllium Hydrophilic Mucilloid (Metamucil) 1 tbs TID PO 09/04/25 14:00 09/12/25 16:49 DC 09/11/25 20:32 1 TBS Quetiapine Fumarate (SEROquel 25 mg TAB) 25 mg ONCE PRN PO INSOMNIA 09/11/25 21:00 09/13/25 08:14 DC 09/13/25 00:58 25 MG Sodium Bicarbonate 150 meq/Dextrose 1,150 ml @ 125 mls/hr Q9H12M IVP 08/29/25 10:00 08/30/25 10:12 DC 08/30/25 08:07 125 MLS/HR Sodium Bicarbonate (Sodium Bicarbonate) 1,300 mg QID PO 09/10/25 17:00 10/10/25 16:59 09/13/25 13:41 1,300 MG Sodium Bicarbonate (Sodium Bicarbonate) 1,300 mg TID PO 09/07/25 14:00 09/08/25 18:00 DC 09/08/25 16:15 1,300 MG Sodium Bicarbonate (Sodium Bicarbonate) 1,300 mg TID PO 09/09/25 09:00 09/10/25 12:00 DC 09/10/25 10:31 1,300 MG Sodium Chloride 250 ml @ 0 mls/hr AD IV 08/29/25 17:30 09/28/25 17:29 Sodium Chloride 1,000 ml @ 0 mls/hr Q0M IV 08/29/25 16:00 08/29/25 16:03 DC Sodium Chloride 1,000 ml @ 0 mls/hr Q0M IV 08/29/25 16:00 09/01/25 08:01 DC 08/29/25 16:10 500 MLS/HR Sodium Chloride 1,000 ml @ 125 mls/hr Q8H IV 08/29/25 09:30 08/29/25 09:57 DC Sodium Chloride 1,000 ml @ 150 mls/hr Q6H40M IV 08/29/25 18:30 09/01/25 09:29 DC 08/31/25 16:16 150 MLS/HR Sodium Chloride 1,000 ml @ 200 mls/hr PROTOCOL IV 08/29/25 12:30 08/29/25 16:05 DC Sodium Chloride 1,000 ml @ 999 mls/hr Q1H1M IV 08/29/25 09:30 08/29/25 09:06 DC Thiamine HCl (Vitamin B-1) 200 mg Q12H IVP 08/29/25 09:30 09/02/25 09:30 DC 09/02/25 08:56 200 MG Vitamin B Complex (Vitamin B-12) 1,000 mcg DAILY PO 09/08/25 09:00 10/08/25 08:59 09/13/25 09:47 1,000 MCG DIAGNOSTICS / RADIOLOGY: ASSESSMENT: Acute upper GI bleeding- Hematemesis, dark output from ileostomy bag, POA, Improving Anxiety Acute DVT of right axillary vein and right cephalic vein High output from ileostomy bag, not POA Hemorrhagic shock versus hypovolemic shock, POA, Resolved Normocytic normochromic anemia, POA Non anion gap metabolic acidosis Generalized anxiety and Insomnia, POA Hypovolemic hypochloremic hyponatremia, POA, Resolved Severe hyperkalemia, POA, Resolved Hypokalemia, Not POA, resolved Hypophosphatemia, Not POA High anion gap metabolic acidosis, POA, Resolved Hyperammonemia, POA, Improving Lactic acidosis, POA, Resolved Hyperphosphatemia, POA, Resolved Acute renal failure - Prerenal Acute Kidney Injury, POA, resolved Starvation Ketoacidosis, POA Rule out occult sepsis, POA Recent extended hospitalization in [facility], 07/20/2025- 08/25/2025 for sepsis, acute abdomen, POA Severe Dehydration, POA, Improving History of esophageal varices, POA Acute Decompensated liver cirrhosis, POA Hx of acute cholecystitis, s/p cholecystostomy tube placement on 08/02/2025. Perisplenic abscess, s/p CT-guided drainage placement on 08/09/2025. 2.7 x 2.2 x 5.1 cm infrasplenic collection History of gastritis, POA Hx of Generalized peritonitis with ESBL E coli infection, POA Moderate Protein calorie malnutrition POA History of bilious peritonitis with small colonic anastomosis perforation s/p diagnostic laparoscopy, abdominal washout, ileostomy creation by Dr. Gann, 07/21/2025 Hx of DM II, POA Recent colovesical fistula repair with sigmoid colon resection and anastomosis on PLAN: High output from ileostomy * Continue fiber 3 times a day. Secretions have thickened. * Monitor for any signs of dehydration including vitals and BMP. * Lactulose decreased to b.i.d. from t.i.d.. * Ostomy ring and abdominal binder in place for better seal. * Monitor input and output including ileostomy bag. * Ileostomy bag change due to leakage * Surgery discontinued thickener Acute DVT of right axillary vein and right cephalic vein * Patient developed nodular, tender swelling along the venous distribution in right upper extremity * Venous doppler on 09/05/25 revealed acute DVT of right axillary vein and right cephalic vein * Hematology recommended to bridge Lovenox 60 mg Q12 with Apixaban 10 mg BID for 5 days followed by Apixaban 5 mg bid for 3 months * We changed the apixaban to 5 mg b.i.d. * Gastroenterology cleared patient for anticoagulation * Held the Eliquis for 3 days * Since EGD is planned for tomorrow Non-Anion gap metabolic acidosis - resolved * Patient's bicarb is 20, sodium 132, chloride 104 and albumin 2.4, albumin corrected anion gap 12 * Patient was given 1300 mg of sodium bicarbonate t.i.d. * We will monitor labs tomorrow a.m. Acute upper GI bleeding- Hematemesis, dark output from ileostomy bag * EGD was done which showed less than 5 mm esophageal varices with scar in the lower 3rd of the esophagus, hypertensive gastropathy, status post biopsy, duodenum was normal during examination. * Patient received Sandostatin and Protonix drip on presentation which were subsequently stopped . * Patient resumed on IV Protonix 40 mg b.i.d. * Diet advanced to regular diet * Monitor for bleeding, we will obtain recommendations from GI for possible variceal banding * Ileostomy output no longer shows any bloody output. * DC thickener Normocytic normochromic anemia, iron deficiency * Patient's hemoglobin stable at 9.1 * Anemia of chronic disease versus iron deficiency versus blood loss. * Iron 31, TIBC 155, % sat 20 * Keep hemoglobin above 7 Acute renal failure, Prerenal Acute Kidney Injury, Dehydration, resolved * On Presentation, patient's creatinine was 5, BUN 80. * FENa <0.2, Stone <20 - Urine microscopy showed Hyaline and granular casts * Patient was started on NaCl 150mls/hr which was stopped. * Bicarb drip was discontinued as per nephrology. * patient is successfully weaned off Levophed * Patient received emergent hemodialysis session for elevated renal parameters as well as electrolyte derangements including Hyperkalemia and acidosis. * Her creatinine and BUN have improved to 1.1 and 18 respectively (09/13) * Transfuse as needed to keep Hb above 7 (Hb=9.0, 08/31/25) * Monitor input and output. * We will repeat a.m. labs and follow up with Nephrology recommendations. Generalized anxiety and Insomnia * Patient very anxious about her health outcomes from the medical complexity * Patient is worried after noticing blood in the ileostomy bag while continuing anticoagulation for DVT * Patient reassured of close monitoring and risk vs benefits on continuing anticoagulation * Continue Seroquel 25 mg PRN * Tele psych consultation recommended - Remeron increased to 15 ATTESTATION BY PHYSICIAN I have seen and examined the patient. I reviewed the documentation, medical decision making, and treatment plan as noted by the resident provider above. I agree with the findings and plan of care. Miguel Conley MD, LAKSHMI MD Sep 13, 2025 16:05
--- NOTE | 2025-09-13 21:24 | PN ---
GASTROENTEROLOGY PROGRESS NOTE Date of Visit: Sep 13, 2025 Time of Visit: 21:22 Events / Notes: No acute events overnight. Patient underwent EGD and was found to have small esophageal varices, scar in the lower 3rd of the esophagus, and portal hypertensive gastropathy. Normal examined duodenum. She has bleeding in ostomy. Review of Systems: CONSTITUTIONAL: No malaise or change in sensation of wellbeing. ENMT: No rhinorrhea, otorrhea, sinus pain, ear ache. CARDIOVASCULAR: No angina, palpitations, orthopnea or paroxysmal dyspnea. RESPIRATORY: No SOB. GASTROINTESTINAL: No abdominal pain, nausea, vomiting, diarrhea, hematemesis, melena or change in the patient's habitual bowel movements consistency/number. GENITOURINARY: No dysuria, hematuria or change in bladder continence. MUSCULOSKELETAL: No new muscle pain or decrease in muscular strength. No new joint swelling, redness or tenderness. SKIN: No new rash. Physical Exam: GEN: Awake, alert, oriented in person, time and place, and in no acute distress. HEENT: No rhinorrhea. Oral mucosa is moist. CHEST: Lung auscultation revealed normal breath sounds bilaterally. CARDIAC:Heart sounds are regular. ABD: Soft, non-tender and not distended. No peritoneal signs on palpation. Normal bowel sounds. Ileostomy in place with watery output. EXT: No cyanosis or clubbing. No edema. SKIN: Intact. No rashes. NEURO: Alert and oriented to name, place and person.No focal motor deficits. Normal speech. Vital Signs (last 8hr) Date Time Temp Pulse Resp B/P (MAP) Pulse Ox O2 Delivery O2 Flow Rate FiO2 09/13/25 20:00 97.9 100 20 117/72 100 Room Air 09/13/25 15:45 97.3 81 18 136/91 98 Room Air 09/13/25 15:02 98 Room Air* 0 21 Laboratory: [ ] Laboratory: Test 09/13/25 19:54 09/13/25 04:21 09/12/25 04:33 Range/Units Whole Blood Glucose 190 H 70-110 MG/DL White Blood Count 4.9 4.8-10.8 K/uL Red Blood Count 2.90 L 4.00-5.50 MIL/uL Hemoglobin 9.1 L 12.0-16.0 g/dL Hematocrit 27.8 L 36-48 % Mean Corpuscular Volume 95.9 79-99 fL Mean Corpuscular Hemoglobin 31.4 27.0-33.0 pg Mean Corpuscular Hemoglobin Concent 32.7 32.0-36.0 g/dL Red Cell Distribution Width 18.8 H 11.0-15.5 % Platelet Count 188 130-400 K/uL Mean Platelet Volume 9.7 7.5-10.5 fL Nucleated Red Blood Cells 0.0 0.0-0.19 % Sodium Level 132 L 136-145 mmol/L Potassium Level 3.9 3.5-5.1 mmol/L Chloride Level 104 101-111 mmol/L Carbon Dioxide Level 20 L 21-32 mmol/L Blood Urea Nitrogen 18 7-18 mg/dL Creatinine 1.1 H 0.5-1.0 mg/dL Glomerular Filtration Rate Calc 59 >90 mL/min Random Glucose 138 H 70-105 mg/dL Total Calcium 8.6 8.5-10.1 mg/dL Magnesium Level 1.70 L 1.80-2.40 mg/dL Total Bilirubin 0.4 # 0.2-1.0 mg/dL Aspartate Amino Transf (AST/SGOT) 56 H 10-37 U/L Alanine Aminotransferase (ALT/SGPT) 28 12-78 U/L Alkaline Phosphatase 140 H 50-136 U/L Ammonia 74 H 11-32 umol/L Total Protein 6.4 6.0-8.3 g/dL Albumin 2.4 L 3.5-5.0 g/dL Thyroid Stimulating Hormone (TSH) 0.23 #L 0.36-3.74 uIU/mL Free Triiodothyronine (T3) pg/mL 2.38 2.18-3.98 pg/mL Immature Granulocyte % (Auto) 0.7 0-1 % Neutrophils (%) (Auto) 59.6 40.0-77.0 % Lymphocytes (%) (Auto) 26.6 21.0-51.0 % Monocytes (%) (Auto) 7.5 3.0-13.0 % Eosinophils (%) (Auto) 4.9 0.0-8.0 % Basophils (%) (Auto) 0.7 0.0-5.0 % Neutrophils # (Auto) 3.4 1.8-7.7 K/uL Lymphocytes # (Auto) 1.5 1.0-4.8 K/uL Monocytes # (Auto) 0.4 0.1-1.0 K/uL Eosinophils # (Auto) 0.28 0.00-0.70 K/uL Basophils # (Auto) 0.04 0.00-0.20 K/uL Absolute Immature Granulocyte (auto 0.04 0-1 K/uL Current Medications Medications (Trade) Dose Ordered Sig/Gregory Route PRN Reason Start Time Stop Time Status Last Admin Dose Admin Acetaminophen (TYLenol 325MG TAB) 650 mg Q6H PRN PO MILD PAIN (1-3) 08/29/25 10:00 09/28/25 09:59 Acetaminophen/ Hydrocodone Bitart (NORco 5/325MG) 2 tab Q4H PRN PO SEVERE PAIN (7-10) 09/08/25 09:30 09/13/25 09:29 DC 09/13/25 00:59 2 TAB Albuterol (DUOneb) 1 udvial Q6H PRN IH SHORTNESS OF BREATH 08/29/25 10:00 09/28/25 09:59 Apixaban (EliquIS) 5 mg BID PO 09/08/25 21:00 09/13/25 08:14 DC 09/11/25 20:32 5 MG Apixaban (EliquIS) 10 mg BID PO 09/07/25 22:00 09/08/25 01:42 DC 09/07/25 22:06 10 MG Apixaban (EliquIS) 10 mg BID PO 09/08/25 09:30 09/08/25 10:13 DC Atorvastatin Calcium (LIPItor 10MG) 5 mg HS PO 09/05/25 21:00 10/05/25 20:59 09/12/25 20:13 5 MG Calcium Gluconate (Calcium Gluc 1gm Vial) 1 gm ONCE IV 08/29/25 09:30 08/29/25 09:23 DC Cyclobenzaprine HCl (Cyclobenzaprine HCl) 5 mg TID PRN PO muscle spasms 09/05/25 11:00 10/05/25 10:59 Dextrose (D50w) 50 ml AD PRN IV HYPOGLYCEMIA PROTOCOL 08/29/25 10:00 09/28/25 09:59 Dextrose/Sodium Chloride 1,000 ml @ 0 mls/hr AD IV 08/29/25 12:30 08/29/25 16:05 DC Duloxetine HCl (CymbALTA 30 mg CAP) 30 mg BID PO 09/03/25 21:00 09/09/25 11:10 DC 09/09/25 10:37 30 MG Enoxaparin Sodium (Lovenox (Pharmacy To Dose)) 1 unit Q12H SQ 09/06/25 13:30 09/06/25 13:21 DC Enoxaparin Sodium (Lovenox 60mg) 60 mg Q12H SQ 09/06/25 13:30 09/07/25 15:03 DC 09/07/25 14:29 60 MG Folic Acid (FOLic ACID 1 MG TABLET) 1 mg DAILY PO 09/08/25 09:00 10/08/25 08:59 09/13/25 09:47 1 MG Glucagon (Glucagon 1mg Kit) 1 mg AD PRN IM HYPOGLYCEMIA PROTOCOL 08/29/25 10:00 09/28/25 09:59 Home Med (Home Medication) (Medroxyprogesterone Acetate (Provera) 1 TAB) DAILY PO 09/06/25 09:00 10/06/25 08:59 Insulin Human Regular (humuLIN R 100 UNIT/ML 3ML) 5 unit ONCE IV 08/29/25 09:30 08/29/25 09:25 DC Insulin Human Regular (humuLIN R 100 UNIT/ML 3ML) INSULIN SLIDING SCAL... ACHS SQ 08/29/25 11:30 09/28/25 11:29 09/12/25 12:49 2 UNIT Insulin Human Regular 100 unit/ Sodium Chloride 101 ml @ 0 mls/hr PROTOCOL IV 08/29/25 12:30 08/29/25 16:05 DC Lactated Ringer's 1,000 ml @ 100 mls/hr Q10H IV 09/06/25 00:00 09/06/25 18:44 DC 09/06/25 08:35 100 MLS/HR Lactulose (Constulose 20gm/ 30ml Udcup) 20 gm BID PO 09/05/25 21:00 09/12/25 16:49 DC 09/11/25 08:16 20 GM Lactulose (Constulose 20gm/ 30ml Udcup) 20 gm DAILY PO 09/12/25 17:00 09/12/25 17:00 DC Lactulose (Constulose 20gm/ 30ml Udcup) 20 gm TID PO 09/01/25 14:00 09/05/25 10:44 DC 09/05/25 08:06 20 GM Magnesium Sulfate 50 ml @ 0 mls/hr PROTOCOL IV 08/29/25 12:30 08/29/25 16:05 DC Magnesium Sulfate 50 ml @ 0 mls/hr PROTOCOL IV 08/30/25 10:00 09/29/25 09:59 09/13/25 05:22 25 MLS/HR Magnesium Sulfate 50 ml @ 0 mls/hr PROTOCOL IV 09/02/25 13:30 09/02/25 13:04 DC Magnesium Sulfate 50 ml @ 0 mls/hr PROTOCOL IV 09/03/25 08:00 09/03/25 07:43 DC Meropenem (Merrem 500mg) 500 mg Q24H IVPB 08/29/25 10:00 08/31/25 09:59 DC 08/30/25 09:46 500 MG Meropenem (Merrem 500mg) 500 mg Q24H IVPB 08/31/25 23:30 09/10/25 02:29 DC 09/09/25 23:40 500 MG Midodrine (PROAMatine 5 MG TABLET) 5 mg BID PO 09/10/25 09:00 09/11/25 07:21 DC 09/10/25 21:42 5 MG Midodrine (PROAMatine 5 MG TABLET) 5 mg DAILY20 PO 09/11/25 20:00 09/12/25 09:00 DC 09/11/25 20:31 5 MG Midodrine (PROAMatine 5 MG TABLET) 5 mg TID PO 09/08/25 21:00 09/10/25 08:05 DC 09/09/25 15:24 5 MG Midodrine (PROAMatine 5 MG TABLET) 10 mg BID PO 09/01/25 09:00 08/31/25 18:36 DC Midodrine (PROAMatine 5 MG TABLET) 10 mg TID PO 09/01/25 09:00 09/08/25 17:20 DC 09/08/25 16:16 10 MG Mirtazapine (REMeron 15 MG TAB) 7.5 mg HS PO 09/09/25 21:00 09/12/25 11:05 DC 09/11/25 20:31 7.5 MG Mirtazapine (REMeron 15 MG TAB) 15 mg HS PO 09/12/25 21:00 10/12/25 20:59 09/12/25 20:13 15 MG Morphine Sulfate (morPHINE 2MG SYG) 0.5 mg Q4H PRN IVP SEVERE PAIN (7-10) 09/07/25 13:30 09/08/25 09:11 DC 09/08/25 04:27 0.5 MG Morphine Sulfate (morPHINE 2MG SYG) 0.5 mg Q4H PRN IVP SEVERE PAIN (7-10) 09/08/25 18:00 09/09/25 11:10 DC Morphine Sulfate (morPHINE 2MG SYG) 1 mg Q4H PRN IVP SEVERE PAIN (7-10) 09/05/25 13:30 09/07/25 11:35 DC 09/06/25 23:40 1 MG Morphine Sulfate (morPHINE 2MG SYG) 2 mg Q4H PRN IVP SEVERE PAIN (7-10) 09/01/25 05:30 09/05/25 13:19 DC 09/05/25 04:28 2 MG Norepinephrine Bitartrate 32 mg/ Sodium Chloride 250 ml @ 0 mls/hr Q0M STAT IV 08/29/25 21:01 08/29/25 21:07 DC 08/29/25 21:13 0 MLS/HR Octreotide Acetate 1250 mcg/ Sodium Chloride 250 ml @ 0 mls/hr PROTOCOL IV 08/29/25 08:30 09/01/25 10:32 DC 08/31/25 10:18 5 MLS/HR Ondansetron HCl (zoFRAN 4MG INJ) 4 mg Q6H PRN IVP NAUSEA/VOMITING 08/29/25 09:30 09/28/25 09:29 09/09/25 10:42 4 MG Pantoprazole Sodium (PROTonix 40MG INJ) 40 mg BID IVP 09/01/25 21:00 09/03/25 14:32 DC 09/03/25 09:16 40 MG Pantoprazole Sodium (PROTonix 40MG INJ) 40 mg BID IVP 09/06/25 09:00 10/06/25 08:59 09/13/25 09:47 40 MG Pantoprazole Sodium (PROTonix 40MG TAB) 40 mg DAILY PO 09/04/25 09:00 09/06/25 00:03 DC 09/05/25 08:06 40 MG Pantoprazole Sodium 80 mg/ Sodium Chloride 100 ml @ 10 mls/hr Q10H IV 08/29/25 08:30 09/01/25 10:32 DC 09/01/25 05:50 10 MLS/HR Pharmacy Profile Note (Pharmacy Communication) 1 each ONCE MISC 08/29/25 09:30 08/29/25 09:35 DC Pharmacy Profile Note (Pharmacy Communication) 1 each ONCE MISC 08/31/25 23:30 08/31/25 23:17 DC Potassium Chloride 100 ml @ 50 mls/hr AD PRN IV POTASSIUM PROTOCOL 08/29/25 12:30 09/28/25 12:29 09/02/25 06:26 50 MLS/HR Psyllium Hydrophilic Mucilloid (Metamucil) 1 tbs BID PO 09/12/25 17:00 09/12/25 18:00 DC 09/12/25 17:19 1 TBS Psyllium Hydrophilic Mucilloid (Metamucil) 1 tbs TID PO 09/04/25 14:00 09/12/25 16:49 DC 09/11/25 20:32 1 TBS Quetiapine Fumarate (SEROquel 25 mg TAB) 25 mg ONCE PRN PO INSOMNIA 09/11/25 21:00 09/13/25 08:14 DC 09/13/25 00:58 25 MG Sodium Bicarbonate 150 meq/Dextrose 1,150 ml @ 125 mls/hr Q9H12M IVP 08/29/25 10:00 08/30/25 10:12 DC 08/30/25 08:07 125 MLS/HR Sodium Bicarbonate (Sodium Bicarbonate) 1,300 mg QID PO 09/10/25 17:00 10/10/25 16:59 09/13/25 17:18 1,300 MG Sodium Bicarbonate (Sodium Bicarbonate) 1,300 mg TID PO 09/07/25 14:00 09/08/25 18:00 DC 09/08/25 16:15 1,300 MG Sodium Bicarbonate (Sodium Bicarbonate) 1,300 mg TID PO 09/09/25 09:00 09/10/25 12:00 DC 09/10/25 10:31 1,300 MG Sodium Chloride 250 ml @ 0 mls/hr AD IV 08/29/25 17:30 09/28/25 17:29 Sodium Chloride 1,000 ml @ 0 mls/hr Q0M IV 08/29/25 16:00 08/29/25 16:03 DC Sodium Chloride 1,000 ml @ 0 mls/hr Q0M IV 08/29/25 16:00 09/01/25 08:01 DC 08/29/25 16:10 500 MLS/HR Sodium Chloride 1,000 ml @ 125 mls/hr Q8H IV 08/29/25 09:30 08/29/25 09:57 DC Sodium Chloride 1,000 ml @ 150 mls/hr Q6H40M IV 08/29/25 18:30 09/01/25 09:29 DC 08/31/25 16:16 150 MLS/HR Sodium Chloride 1,000 ml @ 200 mls/hr PROTOCOL IV 08/29/25 12:30 08/29/25 16:05 DC Sodium Chloride 1,000 ml @ 999 mls/hr Q1H1M IV 08/29/25 09:30 08/29/25 09:06 DC Thiamine HCl (Vitamin B-1) 200 mg Q12H IVP 08/29/25 09:30 09/02/25 09:30 DC 09/02/25 08:56 200 MG Vitamin B Complex (Vitamin B-12) 1,000 mcg DAILY PO 09/08/25 09:00 10/08/25 08:59 09/13/25 09:47 1,000 MCG Diagnostics / Radiology: [COPY/PASTE HERE IF NO REPORTS PLEASE DELETE SECTION] Assessment: [Esophageal varices Liver cirrhosis Ileostomy status Hypertension Type 2 diabetes ] Plan: EGD in am Continue GI prophylaxis Advance diet as tolerated Avoid NSAIDs Antireflux measures Monitor H&H and transfuse as needed Call with questions, concerns or change in clinical status Patient to follow-up at clinic post discharge Thank you for this consult STEPHEN THAO [facility] Sep 13, 2025 21:24
[2025-09-14] VITALS (12 sets, daily range): BP systolic 96–133; BP diastolic 58–73; PULSE 88–110; RESP 15–24; TEMP 97.5–98; O2SAT 97–98
[2025-09-14 04:40] LABS: IMMATURE GRANULOCYTE ABSOLUTE 0.02 K/uL (0-1); NUCLEATED RED BLOOD CELLS 0.0 % (0.0-0.19); PLATELET COUNT (AUTO) 218 K/uL (130-400); RED BLOOD CELL COUNT(AUTO) 2.85 MIL/uL (4.00-5.50); RED CELL DISTRIBUTION WIDTH 19.3 % (11.0-15.5); WHITE BLOOD COUNT (AUTO) 5.2 K/uL (4.8-10.8)
[2025-09-14 04:51] LABS: CREATININE 1.0 mg/dL (0.5-1.0); GLOMERULAR FILTR. RATE CALC 66.0 mL/min (>90); GLUCOSE,RANDOM 100.0 mg/dL (70-105); SODIUM SERUM 133.0 mmol/L (136-145); UREA NITROGEN, BLOOD 21.0 mg/dL (7-18)
[2025-09-14 05:05] LABS: INR 1.19 (0.85-1.15)
--- NOTE | 2025-09-14 11:26 | PN ---
[facility] PROGRESS NOTE Date of Service: Sep 14, 2025 Time of Service: 11:17 SUBJECTIVE: As per admission notes "50-year-old female with underlying history of type 2 diabetes mellitus, history of liver cirrhosis, prior history of esophageal varices requiring banding in May,, history of robotic sigmoid resection with takedown of colovesical fistula who was recently hospitalized in [facility] from 07/20/2025 - 08/25/2025 patient was found to have bilious peritonitis with 2 mm perforation of colonic anastomosis requiring diagnostic laparoscopy, abdominal washout and drain placement with creation of diverting loop ileostomy. Patient was hospitalized for about one month and subsequently required IR guided drain placement as well. She was just discharged from the hospital on 08/25/2025. Patient's daughter reports that patient was having nausea and vomiting with poor oral intake at home. She started to have coffee-ground emesis today and she also noticed some right streaks of blood with a coffee-ground emesis. Stool has also been dark in the ileostomy bag. Patient is having moderate intensity abdominal pain as well. She has not been taking any NSAIDs. Daughter reports that patient has been very weak since her discharge in very debilitated. Patient denies active chest pain. Denies active shortness of breath. On presentation to the hospital, patient was noted to be afebrile with T-max of 97.5 F, heart rate of 100, blood pressure of 127/91. Labs [place] [address], hemoglobin of 16.4, platelet count of 857823. BMP was repeated twice, BMP showed sodium of 117, potassium 7.0, chloride of 88, CO2 of seven, BUN of 83, creatinine 5.0, blood glucose of 99, calcium 10.4. Blood gas showed pH of 7.28, bicarb of close to eight, CO2 of 18, lactic acid of three. Patient will be admitted to ICU. Patient is presenting with severe renal failure with hyperkalemia and severe metabolic acidosis. Patient also with concerns for upper GI bleeding with coffee-ground emesis. Patient remains critically ill consultation with Intensive Care, Nephrology, GI will be requested. We we will obtain a CT abdomen pelvis without contrast for further evaluation as well. Patient is critically ill. Plan of care was discussed with patient and daughter at bedside" 08/30/2025 Patient was seen and examined at bedside. Her blood pressure has been low, 88/54, heart rate 86. She is currently on Levophed 0.2 Mcg, octreotide, Protonix, sodium bicarbonate drip. She received 2nd hemodialysis session yesterday. As per Nephrology, she will continue to receive dialysis inpatient. Her high anion gap metabolic acidosis is improving with sodium 134, carbon dioxide 31, chloride 96. Her creatinine has trended down from 5-1.8. General surgery consult is on board and we will follow up with their recommendations. Additionally, in the light of history of liver cirrhosis with esophageal varices, her recent hematemesis will be evaluated with GI consult and possible endoscopy. We discussed this with the patient and her family members present besides. Patient is started on Merrem and blood culture, urine cultures show no growth so far. Her lactic acid has trended down from 3.1 to 2.1. 08/31/2025 Patient was seen and examined at bedside in room 214. She continues to be on Levophed 0.1 which is being weaned off. She is also on Sandostatin and Protonix drip. Patient complained of mild pain along the sides of her drain but denied any nausea or episode of vomiting since Saturday. Minimal drainage was noted. Sodium bicarb was discontinued as per Nephrology. Her lab markers have improved with sodium 141, chloride 104, bicarb 32, creatinine 1, BUN 16, ammonia 34. Her urine sodium was less than 20 consistent with prerenal CYNTHIA. We are pending blood and urine culture results. Her total output in the past24 hours has been optimal, 2069. She is on sodium chloride 150 mL/hour. We are following gastroenterology recommendations of possible upper endoscopy in the morning if patient condition remains stable. 09/01/2025 Patient was seen and examined at bedside. She is off vasopressor support and is hemodynamically stable. Her chest x-ray showed opacity in the left lower lobe and we will follow up with CT scan of chest. She is started on 2nd day of ppm today. She successfully underwent EGD which showed small, less than 5 mm, esophageal varices with scar in the lower 3rd of the esophagus. Patient was noted to have portal hypertensive gastropathy which was biopsied. Duodenum was normal during examination. Patient is receiving Merrem and her blood culture and urine cultures have shown no growth so far. Due to her elevated ammonia levels, she will be started on lactulose. We will proceed with caution with respect to normal saline as patient's BNP is elevated. 09/02/2025 The patient has been seen and examined earlier this morning during my rounding, case discussed with the RN, no acute events overnight, blood pressure 118/71, heart rate of 56, afebrile, saturating normal on room air, CBC showing hemoglobin 8.5, hematocrit 36.8, WBC of 4.4, platelet count of 99, sodium 137, potassium 3.8, BUN of 18, creatinine 0.7, magnesium Lasix. Results of blood culture no growth after four days. Urine culture no growth. EGD reviewed, small less than 5 mm esophageal varices with scar in the lower 3rd of the esophagus. Patient with a bottle hypertensive gastropathy, status post biopsy, duodenum was normal during examination. Patient to be downgraded to the medical floor, continue banana bag, continue Protonix 40 mg IV b.i.d.. Plan for possible PEG tube placement. 09/03/2025 Patient was seen and examined at bedside. She has been advanced to GI soft bland diet which she is tolerating really well and having output in her ileostomy bag. As per surgeon, if she continues to tolerate diet, she may not require G-tube placement on discharge. Patient did not complain of any significant pain and seemed to be doing really well. Her cholecystostomy tube was removed but her splenic percutaneous tube is still in position and may require further IR intervention for repositioning due to persistent and mildly increased perisplenic fluid collection. She is receiving lactulose and her ammonia levels have gone down. Her acute renal failure continues to resolve and her vitals are also stable. No growth on urine and blood culture so far. We have shifted her from Protonix IV to p.o. as per GI recommendations. 09/04/2025 Patient was seen and examined at bedside in room 302. She has been tolerating GI soft bland diet, ileostomy output seems very high, liquid consistency and patient will be receiving fiber 3 times a day. Patient may require further IR intervention on Saturday for splenic drain reposition due to persistent and mildly increased perisplenic fluid collection. Vitals are stable, blood and urine culture shows no growth so far. 09/05/2025 Patient was seen and examined at bedside. She is tolerating GI soft bland diet, and her ileostomy output is high although liquid in consistency. We have decreased lactulose to b.i.d. from t.i.d. She continues on fiber 3 times a day as per surgery recommendations to bulk up the stool from the ileostomy in order to decrease the chances of further dehydration from high ileostomy output. Additionally, nodular swelling was appreciated in her right upper extremity which could be concerning for superficial venous thrombosis for which ultrasound Doppler of right upper extremity has been ordered. Patient is currently undergoing bladder training while being catheterized and we will proceed with Dueñas catheter removal as tolerated. 09/06/2025: Patient was seen and examined at bedside in room 302. She is tolerating GI soft bland diet and her ileostomy output has thicker consistency. Nurse reported that there was bright red blood in the ileostomy bag last night however this morning it was free from blood. Venous Doppler of the right upper extremity revealed deep vein thrombosis in right axillary vein and right cephalic vein, advice from Gastroenterology and Hematology was requested to start anticoagulation. Patient was started on Lovenox 1 mg/kg body weight as per Hematology recommendations. Patient will be continued on IV Protonix 40 mg b.i.d. 09/07/2025: Patient was seen and examined at bedside in room 302. Patient complained of generalized body pains however denied specific pain to the right a rm or in abdomen. She is tolerating GI soft bland it and had to 25 mL of total output from ileostomy bag last night as per the primary nurse. During my evaluation in the morning there was no blood observed in the ileostomy bag however around 10:30 a.m. nurse reported blood in the ileostomy bag. Dr. Gonzalez recommended to continue Lovenox and bridge with apixaban 10 mg for 5 days and then transition to apixaban 5 mg for 3 months. Surgery recommended to continue current medical management and await management of DVT for potential discharge. However we will try to connect with them regarding removal of splenic drain or repositioning through IR Services. 09/08/2025: Patient was examined at bedside in room 302. Patient's family mem bers were present during the evaluation of helped us translate. Her ileostomy bag was clear. Patient attendants voiced that patient was more anxious about noticing blood in her ileostomy bag. Patient's hemoglobin and hematocrit have remained stable. Ileostomy bag has been replaced due to leakage. Patient and the family members were educated on proper care for ileostomy bag by the wound care team and was also reinforced that she needs to be on anticoagulation for venous thrombosis for preventing dislodging of clot to lungs and causing fatal pulmonary embolism. Risks and benefits were explained to the patient that patient will need anticoagulation and her hemoglobin will be monitored regularly. Was also encouraged to keep her food intake high and prevent dehydration. We will connect with surgical team for management of splenic catheter drain. 09/09/2025: Patient was examined at the bedside in room 302. Patient had no acute events over night but continues to have difficulty falling asleep and anxiety from the medical complexity. Her hemoglobin is stable 9.2 today. Patient has an abdominal binder in place with ostomy ring for better seal. Patient will undergo CT abdomen for evaluation of removal of splenic catheter drain today. We discontinued her Duloxetine and started 7.5 mg of Mirtazapine at bedtime. 09/10/2025: Patient was examined at the bedside in room 302. Patient had no acut events overnight and reports she had a restful sleep last night. There was no reported leakage of blood into the ileostomy bag. Patient still has the ostomy ring and binder in place. Surgical team recommended considering variceal banding which could be the source of frequent bleeding into the ileostomy bag. They also recommended to keep the splenic catheter drain in place for continued perisplenic fluid. Nurse was notified to call GI team for further recommendations. We will continue to taper her midodrine in the subsequent days as she is maintaining good blood pressure. 09/11/2025: Patient was examined at bedside in room 302 with daughter at bedside. Patient reports that she still continues to have restless nights due to anxiety. There was no blood in the ileostomy bag noted over the last night however bag has to be replaced due to leakage. Currently pending GI recommendations for evaluation of varices for potential banding. Hemoglobin remained stable. Daughter expressed concerns about severe anxiety causing her to not eat, not ambulate, and unable to express fears due to the medical complexities involved. We ordered a tele psych consult for evaluation of severe anxiety and ordered Seroquel PRN for insomnia and we will continue mirtazapine 7.5 mg everyday. We will obtain recommendations from Gastroenterology on Saturday. In addition we reinforced to the daughter that patient's hemoglobin is being monitored on a daily basis and bleeding in ileostomy bag should not be a concern for anxiety and reiterated to explain this to her mother. Also enco uraged the patient to ambulate in the hallways and increase her dietary intake. 09/12/2025: Patient is seen in the room 302. Thid morning tele psych consultation was done. Gave following recommendations that patient is not suicidal homicidal or psychotic. Advised Remeron to [address] Sol called yesterday night to hold Eliquis for the possible EGD. So Eliquis held at least 3 days before the procedure. Changed ileostomy bag due to bag is leaking. General surgery recommends following- discontinue thickener, decrease lactulose to q.day, decrease Metamucil to b.i.d.. 09/13/2025: Patient is comfortably resting in her room. No acute events were reported overnight by the nursing staff. The patient denies melena, blood in the ileostomy bag, nausea, vomiting, or hematemesis. Patient is scheduled for EGD tomorrow. Eliquis was held starting yesterday to allow adequate time off anticoagulation before the procedure. The ileostomy no longer shows any bloody output. The patient reports tolerating diet well. The surgical team has evaluated her and advised that no further surgical intervention is required. She denies nausea, vomiting, or abdominal pain. Her ammonia level is 74, and she is receiving lactulose. Hemoglobin is stable at 9.1 g/dL. 09/14/2025: Patient is seen and evaluated in room number 302. She is scheduled for EGD today. She denies any new complaints, and the nursing staff reported no events overnight. Her hemoglobin remains stable at 9.1. Patient was comfortably sleeping in bed at the time of evaluation. REVIEW OF SYSTEMS CONSTITUTIONAL: malaise, tolerating diet well NEUROLOGICAL: Denies headache, motor weakness, sensory deficit, vertigo/spinning sensation, gait abnormalities, or tremors. ENT: No hearing loss, otalgia, otorrhea, rhinitis, rhinorrhea, hoarseness, or sore throat. CARDIOVASCULAR: Denies any exertional angina, dyspnea on exertion, orthopnea, paroxysmal nocturnal dyspnea, palpitations, life-threatening arrhythmias, claudication. PULMONARY: Denies any shortness of breath, cough, phlegm/sputum, hemoptysis, pleuritic chest pain. SLEEP: Denies morning headaches, daytime somnolence or napping. Denies difficulty falling asleep, staying asleep, waking from sleep. Denies knowledge of snoring. GASTROINTESTINAL: Denies nausea, vomiting, abdominal pain, melena, coffee ground emesis PHYSICAL EXAM GENERAL APPEARANCE: The patient is awake, alert, and oriented, answering to all questions with very mild pain around her drains. NEUROLOGICAL: Neurological examination is non focal with spontaneous movement of upper and lower extremities HEENT: Face is symmetric. Pupils are equal and reactive. Extraocular movements are intact. NECK: Supple. No thyromegaly. No submental, submandibular, pre-/postauricular, occipital or supraclavicular lymphadenopathy. CHEST: Normal chest expansion. No Telemetry. LUNGS: Absence of any rales, rhonchi or any wheezing. CARDIOVASCULAR: Regular. S1 and S2 normal. No appreciable rubs, murmurs or gallops. ABDOMEN: no rebound noted, there is perisplenic abdominal drain noted with ileostomy bag, ostomy ring and abdominal binder. : Deferred. Currently catheterized. EXTREMITIES: Swelling in right upper extremity. Mild ecchymosis. Vital Signs (last 8hr) Date Time Temp Pulse Resp B/P (MAP) Pulse Ox O2 Delivery O2 Flow Rate FiO2 09/14/25 08:00 98.1 94 18 133/73 98 Room Air 09/14/25 04:00 98.1 103 20 127/69 98 Room Air LABS: Laboratory: Test 09/14/25 05:01 09/14/25 04:27 09/13/25 04:21 Range/Units Whole Blood Glucose 103 70-110 MG/DL White Blood Count 5.2 4.8-10.8 K/uL Red Blood Count 2.85 L 4.00-5.50 MIL/uL Hemoglobin 9.1 L 12.0-16.0 g/dL Hematocrit 27.8 L 36-48 % Mean Corpuscular Volume 97.5 79-99 fL Mean Corpuscular Hemoglobin 31.9 27.0-33.0 pg Mean Corpuscular Hemoglobin Concent 32.7 32.0-36.0 g/dL Red Cell Distribution Width 19.3 H 11.0-15.5 % Platelet Count 218 130-400 K/uL Mean Platelet Volume 9.5 7.5-10.5 fL Immature Granulocyte % (Auto) 0.4 0-1 % Neutrophils (%) (Auto) 57.5 40.0-77.0 % Lymphocytes (%) (Auto) 29.4 21.0-51.0 % Monocytes (%) (Auto) 6.7 3.0-13.0 % Eosinophils (%) (Auto) 5.4 0.0-8.0 % Basophils (%) (Auto) 0.6 0.0-5.0 % Neutrophils # (Auto) 3.0 1.8-7.7 K/uL Lymphocytes # (Auto) 1.5 1.0-4.8 K/uL Monocytes # (Auto) 0.4 0.1-1.0 K/uL Eosinophils # (Auto) 0.28 0.00-0.70 K/uL Basophils # (Auto) 0.03 0.00-0.20 K/uL Absolute Immature Granulocyte (auto 0.02 0-1 K/uL Nucleated Red Blood Cells 0.0 0.0-0.19 % Prothrombin Time 12.4 H 9.6-11.6 SEC Prothromb Time International Ratio 1.19 H 0.85-1.15 Sodium Level 133 L 136-145 mmol/L Potassium Level 3.5 3.5-5.1 mmol/L Chloride Level 103 101-111 mmol/L Carbon Dioxide Level 21 21-32 mmol/L Blood Urea Nitrogen 21 H 7-18 mg/dL Creatinine 1.0 0.5-1.0 mg/dL Glomerular Filtration Rate Calc 66 >90 mL/min Random Glucose 100 70-105 mg/dL Total Calcium 8.5 8.5-10.1 mg/dL Magnesium Level 2.00 1.80-2.40 mg/dL Total Bilirubin 0.4 # 0.2-1.0 mg/dL Aspartate Amino Transf (AST/SGOT) 56 H 10-37 U/L Alanine Aminotransferase (ALT/SGPT) 28 12-78 U/L Alkaline Phosphatase 140 H 50-136 U/L Ammonia 74 H 11-32 umol/L Total Protein 6.4 6.0-8.3 g/dL Albumin 2.4 L 3.5-5.0 g/dL Thyroid Stimulating Hormone (TSH) 0.23 #L 0.36-3.74 uIU/mL Free Triiodothyronine (T3) pg/mL 2.38 2.18-3.98 pg/mL Current Medications Medications (Trade) Dose Ordered Sig/Gregory Route PRN Reason Start Time Stop Time Status Last Admin Dose Admin Acetaminophen (TYLenol 325MG TAB) 650 mg Q6H PRN PO MILD PAIN (1-3) 08/29/25 10:00 09/28/25 09:59 09/13/25 21:33 650 MG Acetaminophen/ Hydrocodone Bitart (NORco 5/325MG) 2 tab Q4H PRN PO SEVERE PAIN (7-10) 09/08/25 09:30 09/13/25 09:29 DC 09/13/25 00:59 2 TAB Albuterol (DUOneb) 1 udvial Q6H PRN IH SHORTNESS OF BREATH 08/29/25 10:00 09/28/25 09:59 Apixaban (EliquIS) 5 mg BID PO 09/08/25 21:00 09/13/25 08:14 DC 09/11/25 20:32 5 MG Apixaban (EliquIS) 10 mg BID PO 09/07/25 22:00 09/08/25 01:42 DC 09/07/25 22:06 10 MG Apixaban (EliquIS) 10 mg BID PO 09/08/25 09:30 09/08/25 10:13 DC Atorvastatin Calcium (LIPItor 10MG) 5 mg HS PO 09/05/25 21:00 10/05/25 20:59 09/13/25 21:22 5 MG Calcium Gluconate (Calcium Gluc 1gm Vial) 1 gm ONCE IV 08/29/25 09:30 08/29/25 09:23 DC Cyclobenzaprine HCl (Cyclobenzaprine HCl) 5 mg TID PRN PO muscle spasms 09/05/25 11:00 10/05/25 10:59 Dextrose (D50w) 50 ml AD PRN IV HYPOGLYCEMIA PROTOCOL 08/29/25 10:00 09/28/25 09:59 Dextrose/Sodium Chloride 1,000 ml @ 0 mls/hr AD IV 08/29/25 12:30 08/29/25 16:05 DC Duloxetine HCl (CymbALTA 30 mg CAP) 30 mg BID PO 09/03/25 21:00 09/09/25 11:10 DC 09/09/25 10:37 30 MG Enoxaparin Sodium (Lovenox (Pharmacy To Dose)) 1 unit Q12H SQ 09/06/25 13:30 09/06/25 13:21 DC Enoxaparin Sodium (Lovenox 60mg) 60 mg Q12H SQ 09/06/25 13:30 09/07/25 15:03 DC 09/07/25 14:29 60 MG Folic Acid (FOLic ACID 1 MG TABLET) 1 mg DAILY PO 09/08/25 09:00 10/08/25 08:59 09/13/25 09:47 1 MG Glucagon (Glucagon 1mg Kit) 1 mg AD PRN IM HYPOGLYCEMIA PROTOCOL 08/29/25 10:00 09/28/25 09:59 Home Med (Home Medication) (Medroxyprogesterone Acetate (Provera) 1 TAB) DAILY PO 09/06/25 09:00 10/06/25 08:59 Insulin Human Regular (humuLIN R 100 UNIT/ML 3ML) 5 unit ONCE IV 08/29/25 09:30 08/29/25 09:25 DC Insulin Human Regular (humuLIN R 100 UNIT/ML 3ML) INSULIN SLIDING SCAL... ACHS SQ 08/29/25 11:30 09/28/25 11:29 09/13/25 21:23 2 UNIT Insulin Human Regular 100 unit/ Sodium Chloride 101 ml @ 0 mls/hr PROTOCOL IV 08/29/25 12:30 08/29/25 16:05 DC Lactated Ringer's 1,000 ml @ 100 mls/hr Q10H IV 09/06/25 00:00 09/06/25 18:44 DC 09/06/25 08:35 100 MLS/HR Lactulose (Constulose 20gm/ 30ml Udcup) 20 gm BID PO 09/05/25 21:00 09/12/25 16:49 DC 09/11/25 08:16 20 GM Lactulose (Constulose 20gm/ 30ml Udcup) 20 gm DAILY PO 09/12/25 17:00 09/12/25 17:00 DC Lactulose (Constulose 20gm/ 30ml Udcup) 20 gm TID PO 09/01/25 14:00 09/05/25 10:44 DC 09/05/25 08:06 20 GM Magnesium Sulfate 50 ml @ 0 mls/hr PROTOCOL IV 08/29/25 12:30 08/29/25 16:05 DC Magnesium Sulfate 50 ml @ 0 mls/hr PROTOCOL IV 08/30/25 10:00 09/29/25 09:59 09/13/25 05:22 25 MLS/HR Magnesium Sulfate 50 ml @ 0 mls/hr PROTOCOL IV 09/02/25 13:30 09/02/25 13:04 DC Magnesium Sulfate 50 ml @ 0 mls/hr PROTOCOL IV 09/03/25 08:00 09/03/25 07:43 DC Meropenem (Merrem 500mg) 500 mg Q24H IVPB 08/29/25 10:00 08/31/25 09:59 DC 08/30/25 09:46 500 MG Meropenem (Merrem 500mg) 500 mg Q24H IVPB 08/31/25 23:30 09/10/25 02:29 DC 09/09/25 23:40 500 MG Midodrine (PROAMatine 5 MG TABLET) 5 mg BID PO 09/10/25 09:00 09/11/25 07:21 DC 09/10/25 21:42 5 MG Midodrine (PROAMatine 5 MG TABLET) 5 mg DAILY20 PO 09/11/25 20:00 09/12/25 09:00 DC 09/11/25 20:31 5 MG Midodrine (PROAMatine 5 MG TABLET) 5 mg TID PO 09/08/25 21:00 09/10/25 08:05 DC 09/09/25 15:24 5 MG Midodrine (PROAMatine 5 MG TABLET) 10 mg BID PO 09/01/25 09:00 08/31/25 18:36 DC Midodrine (PROAMatine 5 MG TABLET) 10 mg TID PO 09/01/25 09:00 09/08/25 17:20 DC 09/08/25 16:16 10 MG Mirtazapine (REMeron 15 MG TAB) 7.5 mg HS PO 09/09/25 21:00 09/12/25 11:05 DC 09/11/25 20:31 7.5 MG Mirtazapine (REMeron 15 MG TAB) 15 mg HS PO 09/12/25 21:00 10/12/25 20:59 09/13/25 21:22 15 MG Morphine Sulfate (morPHINE 2MG SYG) 0.5 mg Q4H PRN IVP SEVERE PAIN (7-10) 09/07/25 13:30 09/08/25 09:11 DC 09/08/25 04:27 0.5 MG Morphine Sulfate (morPHINE 2MG SYG) 0.5 mg Q4H PRN IVP SEVERE PAIN (7-10) 09/08/25 18:00 09/09/25 11:10 DC Morphine Sulfate (morPHINE 2MG SYG) 1 mg Q4H PRN IVP SEVERE PAIN (7-10) 09/05/25 13:30 09/07/25 11:35 DC 09/06/25 23:40 1 MG Morphine Sulfate (morPHINE 2MG SYG) 2 mg Q4H PRN IVP SEVERE PAIN (7-10) 09/01/25 05:30 09/05/25 13:19 DC 09/05/25 04:28 2 MG Norepinephrine Bitartrate 32 mg/ Sodium Chloride 250 ml @ 0 mls/hr Q0M STAT IV 08/29/25 21:01 08/29/25 21:07 DC 08/29/25 21:13 0 MLS/HR Octreotide Acetate 1250 mcg/ Sodium Chloride 250 ml @ 0 mls/hr PROTOCOL IV 08/29/25 08:30 09/01/25 10:32 DC 08/31/25 10:18 5 MLS/HR Ondansetron HCl (zoFRAN 4MG INJ) 4 mg Q6H PRN IVP NAUSEA/VOMITING 08/29/25 09:30 09/28/25 09:29 09/09/25 10:42 4 MG Pantoprazole Sodium (PROTonix 40MG INJ) 40 mg BID IVP 09/01/25 21:00 09/03/25 14:32 DC 09/03/25 09:16 40 MG Pantoprazole Sodium (PROTonix 40MG INJ) 40 mg BID IVP 09/06/25 09:00 10/06/25 08:59 09/13/25 21:22 40 MG Pantoprazole Sodium (PROTonix 40MG TAB) 40 mg DAILY PO 09/04/25 09:00 09/06/25 00:03 DC 09/05/25 08:06 40 MG Pantoprazole Sodium 80 mg/ Sodium Chloride 100 ml @ 10 mls/hr Q10H IV 08/29/25 08:30 09/01/25 10:32 DC 09/01/25 05:50 10 MLS/HR Pharmacy Profile Note (Pharmacy Communication) 1 each ONCE MISC 08/29/25 09:30 08/29/25 09:35 DC Pharmacy Profile Note (Pharmacy Communication) 1 each ONCE MISC 08/31/25 23:30 08/31/25 23:17 DC Potassium Chloride 100 ml @ 50 mls/hr AD PRN IV POTASSIUM PROTOCOL 08/29/25 12:30 09/28/25 12:29 09/02/25 06:26 50 MLS/HR Psyllium Hydrophilic Mucilloid (Metamucil) 1 tbs BID PO 09/12/25 17:00 09/12/25 18:00 DC 09/12/25 17:19 1 TBS Psyllium Hydrophilic Mucilloid (Metamucil) 1 tbs TID PO 09/04/25 14:00 09/12/25 16:49 DC 09/11/25 20:32 1 TBS Quetiapine Fumarate (SEROquel 25 mg TAB) 25 mg ONCE PRN PO INSOMNIA 09/11/25 21:00 09/13/25 08:14 DC 09/13/25 00:58 25 MG Sodium Bicarbonate 150 meq/Dextrose 1,150 ml @ 125 mls/hr Q9H12M IVP 08/29/25 10:00 08/30/25 10:12 DC 08/30/25 08:07 125 MLS/HR Sodium Bicarbonate (Sodium Bicarbonate) 1,300 mg QID PO 09/10/25 17:00 10/10/25 16:59 09/13/25 21:22 1,300 MG Sodium Bicarbonate (Sodium Bicarbonate) 1,300 mg TID PO 09/07/25 14:00 09/08/25 18:00 DC 09/08/25 16:15 1,300 MG Sodium Bicarbonate (Sodium Bicarbonate) 1,300 mg TID PO 09/09/25 09:00 09/10/25 12:00 DC 09/10/25 10:31 1,300 MG Sodium Chloride 250 ml @ 0 mls/hr AD IV 08/29/25 17:30 09/28/25 17:29 Sodium Chloride 1,000 ml @ 0 mls/hr Q0M IV 08/29/25 16:00 08/29/25 16:03 DC Sodium Chloride 1,000 ml @ 0 mls/hr Q0M IV 08/29/25 16:00 09/01/25 08:01 DC 08/29/25 16:10 500 MLS/HR Sodium Chloride 1,000 ml @ 125 mls/hr Q8H IV 08/29/25 09:30 08/29/25 09:57 DC Sodium Chloride 1,000 ml @ 150 mls/hr Q6H40M IV 08/29/25 18:30 09/01/25 09:29 DC 08/31/25 16:16 150 MLS/HR Sodium Chloride 1,000 ml @ 200 mls/hr PROTOCOL IV 08/29/25 12:30 08/29/25 16:05 DC Sodium Chloride 1,000 ml @ 999 mls/hr Q1H1M IV 08/29/25 09:30 08/29/25 09:06 DC Thiamine HCl (Vitamin B-1) 200 mg Q12H IVP 08/29/25 09:30 09/02/25 09:30 DC 09/02/25 08:56 200 MG Vitamin B Complex (Vitamin B-12) 1,000 mcg DAILY PO 09/08/25 09:00 10/08/25 08:59 09/13/25 09:47 1,000 MCG DIAGNOSTICS / RADIOLOGY: ASSESSMENT: Acute upper GI bleeding- Hematemesis, dark output from ileostomy bag, POA, Improving Anxiety Acute DVT of right axillary vein and right cephalic vein High output from ileostomy bag, not POA Hemorrhagic shock versus hypovolemic shock, POA, Resolved Normocytic normochromic anemia, POA Non anion gap metabolic acidosis Generalized anxiety and Insomnia, POA Hypovolemic hypochloremic hyponatremia, POA, Resolved Severe hyperkalemia, POA, Resolved Hypokalemia, Not POA, resolved Hypophosphatemia, Not POA High anion gap metabolic acidosis, POA, Resolved Hyperammonemia, POA, Improving Lactic acidosis, POA, Resolved Hyperphosphatemia, POA, Resolved Acute renal failure - Prerenal Acute Kidney Injury, POA, resolved Starvation Ketoacidosis, POA Rule out occult sepsis, POA Recent extended hospitalization in [facility], 07/20/2025- 08/25/2025 for sepsis, acute abdomen, POA Severe Dehydration, POA, Improving History of esophageal varices, POA Acute Decompensated liver cirrhosis, POA Hx of acute cholecystitis, s/p cholecystostomy tube placement on 08/02/2025. Perisplenic abscess, s/p CT-guided drainage placement on 08/09/2025. 2.7 x 2.2 x 5.1 cm infrasplenic collection History of gastritis, POA Hx of Generalized peritonitis with ESBL E coli infection, POA Moderate Protein calorie malnutrition POA History of bilious peritonitis with small colonic anastomosis perforation s/p diagnostic laparoscopy, abdominal washout, ileostomy creation by Dr. Gann, 07/21/2025 Hx of DM II, POA Recent colovesical fistula repair with sigmoid colon resection and anastomosis on 07/09/2022 PLAN: High output from ileostomy * Continue fiber 3 times a day. Secretions have thickened. * Monitor for any signs of dehydration including vitals and BMP. * Lactulose decreased to b.i.d. from t.i.d.. * Ostomy ring and abdominal binder in place for better seal. * Monitor input and output including ileostomy bag. * Ileostomy bag change due to leakage * Surgery discontinued thickener Acute DVT of right axillary vein and right cephalic vein * Patient developed nodular, tender swelling along the venous distribution in right upper extremity * Venous doppler on 09/05/25 revealed acute DVT of right axillary vein and right cephalic vein * Hematology recommended to bridge Lovenox 60 mg Q12 with Apixaban 10 mg BID for 5 days followed by Apixaban 5 mg bid for 3 months * We changed the apixaban to 5 mg b.i.d. * Gastroenterology cleared patient for anticoagulation * Held the Eliquis for 3 days Non-Anion gap metabolic acidosis - resolved * Patient's bicarb is 20, sodium 132, chloride 104 and albumin 2.4, albumin corrected anion gap 12 yesterday * We will monitor labs tomorrow a.m. Acute upper GI bleeding- Hematemesis, dark output from ileostomy bag * EGD scheduled today * Previous EGD was done which showed less than 5 mm esophageal varices with scar in the lower 3rd of the esophagus, hypertensive gastropathy, status post biopsy, duodenum was normal during examination. * Patient received Sandostatin and Protonix drip on presentation which were subsequently stopped . * Patient resumed on IV Protonix 40 mg b.i.d. * Diet advanced to regular diet * Monitor for bleeding, we will obtain recommendations from GI for possible variceal banding * Ileostomy output no longer shows any bloody output. * DC thickener Normocytic normochromic anemia, iron deficiency * Patient's hemoglobin stable at 9.1 * Anemia of chronic disease versus iron deficiency versus blood loss. * Iron 31, TIBC 155, % sat 20 * Keep hemoglobin above 7 Acute renal failure, Prerenal Acute Kidney Injury, Dehydration, resolved * On Presentation, patient's creatinine was 5, BUN 80. * FENa <0.2, Stone <20 - Urine microscopy showed Hyaline and granular casts * Patient was started on NaCl 150mls/hr which was stopped. * Bicarb drip was discontinued as per nephrology. * patient is successfully weaned off Levophed * Patient received emergent hemodialysis session for elevated renal parameters as well as electrolyte derangements including Hyperkalemia and acidosis. * Her creatinine and BUN have improved to 1 and 21 respectively (09/14) * Transfuse as needed to keep Hb above 7 (Hb=9.0, 08/31/25) * Monitor input and output. * We will repeat a.m. labs and follow up with Nephrology recommendations. Generalized anxiety and Insomnia * Patient very anxious about her health outcomes from the medical complexity * Patient is worried after noticing blood in the ileostomy bag while continuing anticoagulation for DVT * Patient reassured of close monitoring and risk vs benefits on continuing anticoagulation * Continue Seroquel 25 mg PRN * Tele psych consultation recommended - Remeron increased to 15 ATTESTATION BY PHYSICIAN I have seen and examined the patient. I reviewed the documentation, medical decision making, and treatment plan as noted by the resident provider above. I agree with the findings and plan of care. Miguel Conley MD, LAKSHMI MD Sep 14, 2025 11:26
--- NOTE | 2025-09-14 15:22 | PN ---
Interval history: This is a 55-year-old female seen in her room resting comfortably status post EGD Patient overall doing well Patient tolerating diet Labs and vitals stable Patient has no longer bleeding to ostomy at this time Physical exam General: Awake alert and oriented Heart: Regular rate and rhythm} Lungs: Clear to auscultation no distress Abdomen: [Soft, nontender, nondistended ostomy functioning properly Assessment and plan: From surgical standpoint no other interventions needed Once cleared by primary team and appropriate Plan for anticoagulation set patient is cleared for discharge Recommendation will be to follow up in one week with Dr. Gann is office Surgical team to sign off at this time. Thank you Surgical case has been discussed with my supervising physician in the above plan was formulated and agreed upon We appreciate the hospitalist team for us to participate in patient's care. Greater than 45 minutes of time spent patient, reviewing chart, working on documentation Vitals/Labs Vital Signs Date Time Temp Pulse Resp B/P (MAP) Pulse Ox O2 Delivery O2 Flow Rate FiO2 09/14/25 13:05 97.5 91 17 117/69 98 Room Air 09/14/25 12:40 10.0 09/13/25 20:00 21 Laboratory Tests 09/14/25 04:27 Medications Current Medications Octreotide Acetate 50 mcg ONCE ONCE IV Last administered on 08/29/25at 09:02; Start 08/29/25 at 08:30; Stop 08/29/25 at 08:31; Status DC Octreotide Acetate 1250 mcg/ Sodium Chloride 250 ml @ 0 mls/hr PROTOCOL IV Last administered on 08/31/25at 10:18; Start 08/29/25 at 08:30; Stop 09/01/25 at 10:32; Status DC Pantoprazole Sodium 80 mg ONCE ONCE IVP Last administered on 08/29/25at 09:02; Start 08/29/25 at 08:30; Stop 08/29/25 at 08:31; Status DC Pantoprazole Sodium 80 mg/ Sodium Chloride 100 ml @ 10 mls/hr Q10H IV Last administered on 09/01/25at 05:50; Start 08/29/25 at 08:30; Stop 09/01/25 at 10:32; Status DC Promethazine HCl 25 mg ONCE ONCE IM Last administered on 08/29/25at 09:07; Start 08/29/25 at 08:30; Stop 08/29/25 at 08:33; Status DC Sodium Chloride 1,000 ml @ 999 mls/hr Q1H1M IV; Start 08/29/25 at 09:30; Stop 08/29/25 at 09:06; Status DC Calcium Gluconate 1 gm/Sodium Chloride 110 ml @ 110 mls/hr ONCE ONCE IV Last administered on 08/29/25at 09:41; Start 08/29/25 at 09:30; Stop 08/29/25 at 10:29; Status DC Dextrose 50 ml ONCE ONCE IV; Start 08/29/25 at 09:30; Stop 08/29/25 at 09:27; Status DC Insulin Human Regular 5 unit ONCE ONCE IV Last administered on 08/29/25at 09:57; Start 08/29/25 at 09:30; Stop 08/29/25 at 09:31; Status DC Albuterol Sulfate 10 mg ONCE ONCE IH Last administered on 08/29/25at 09:37; Start 08/29/25 at 09:30; Stop 08/29/25 at 09:31; Status DC Lactulose 200 gm ONCE ONCE WI; Start 08/29/25 at 09:30; Stop 08/29/25 at 09:36; Status DC Calcium Gluconate 1 gm ONCE IV; Start 08/29/25 at 09:30; Stop 08/29/25 at 09:23; Status DC Sodium Chloride 1,000 ml @ 125 mls/hr Q8H IV; Start 08/29/25 at 09:30; Stop 08/29/25 at 09:57; Status DC Insulin Human Regular 5 unit ONCE IV; Start 08/29/25 at 09:30; Stop 08/29/25 at 09:25; Status DC Dextrose 50 ml ONCE ONCE IV Last administered on 08/29/25at 09:47; Start 08/29/25 at 09:30; Stop 08/29/25 at 09:31; Status DC Sodium Bicarbonate 50 meq ONCE ONCE IV Last administered on 08/29/25at 09:47; Start 08/29/25 at 09:30; Stop 08/29/25 at 09:31; Status DC Pharmacy Profile Note 1 each ONCE MISC; Start 08/29/25 at 09:30; Stop 08/29/25 at 09:35; Status DC Ondansetron HCl 4 mg Q6H PRN IVP Last administered on 09/09/25at 10:42; Start 08/29/25 at 09:30; Stop 09/28/25 at 09:29 Thiamine HCl 200 mg Q12H IVP Last administered on 09/02/25at 08:56; Start 08/29/25 at 09:30; Stop 09/02/25 at 09:30; Status DC Meropenem 500 mg Q24H IVPB Last administered on 08/30/25at 09:46; Start 08/29/25 at 10:00; Stop 08/31/25 at 09:59; Status DC Sodium Chloride 1,000 ml @ 0 mls/hr ONCE ONCE IV Last administered on 08/29/25at 09:47; Start 08/29/25 at 10:00; Stop 08/29/25 at 10:01; Status DC Dextrose 50 ml AD PRN IV; Start 08/29/25 at 10:00; Stop 09/28/25 at 09:59 Glucagon 1 mg AD PRN IM; Start 08/29/25 at 10:00; Stop 09/28/25 at 09:59 Acetaminophen 650 mg Q6H PRN PO Last administered on 09/13/25at 21:33; Start 08/29/25 at 10:00; Stop 09/28/25 at 09:59 Albuterol 1 udvial Q6H PRN IH; Start 08/29/25 at 10:00; Stop 09/28/25 at 09:59 Sodium Bicarbonate 50 meq ONCE ONCE IV Last administered on 08/29/25at 10:12; Start 08/29/25 at 10:00; Stop 08/29/25 at 10:05; Status DC Sodium Bicarbonate 150 meq/Dextrose 1,150 ml @ 125 mls/hr Q9H12M IVP Last administered on 08/30/25at 08:07; Start 08/29/25 at 10:00; Stop 08/30/25 at 10:12; Status DC Insulin Human Regular INSULIN SLIDING SCAL... ACHS SQ Last administered on 09/13/25at 21:23; Start 08/29/25 at 11:30; Stop 09/28/25 at 11:29 Sodium Chloride 1,000 ml @ 0 mls/hr ONCE ONCE IV Last administered on 08/29/25at 13:44; Start 08/29/25 at 11:00; Stop 08/29/25 at 11:06; Status DC Sodium Chloride 1,000 ml @ 200 mls/hr PROTOCOL IV; Start 08/29/25 at 12:30; Stop 08/29/25 at 16:05; Status DC Magnesium Sulfate 50 ml @ 0 mls/hr PROTOCOL IV; Start 08/29/25 at 12:30; Stop 08/29/25 at 16:05; Status DC Insulin Human Regular 100 unit/ Sodium Chloride 101 ml @ 0 mls/hr PROTOCOL IV; Start 08/29/25 at 12:30; Stop 08/29/25 at 16:05; Status DC Dextrose/Sodium Chloride 1,000 ml @ 0 mls/hr AD IV; Start 08/29/25 at 12:30; Stop 08/29/25 at 16:05; Status DC Potassium Chloride 100 ml @ 50 mls/hr AD PRN IV Last administered on 09/02/25at 06:26; Start 08/29/25 at 12:30; Stop 09/28/25 at 12:29 Lidocaine HCl 20 ml STK-MED ONCE .ROUTE; Start 08/29/25 at 14:24; Stop 08/29/25 at 14:25; Status DC Lidocaine HCl 20 ml STK-MED ONCE .ROUTE Last administered on 08/29/25at 15:59; Start 08/29/25 at 14:25; Stop 08/29/25 at 14:25; Status DC Sodium Chloride 1,000 ml @ 0 mls/hr Q0M IV; Start 08/29/25 at 16:00; Stop 08/29/25 at 16:03; Status DC Sodium Chloride 1,000 ml @ 0 mls/hr Q0M IV Last administered on 08/29/25at 16:10; Start 08/29/25 at 16:00; Stop 09/01/25 at 08:01; Status DC Sodium Chloride 250 ml @ 0 mls/hr AD IV; Start 08/29/25 at 17:30; Stop 09/28/25 at 17:29 Sodium Chloride 1,000 ml @ 0 mls/hr ONCE ONCE IV Last administered on 08/29/25at 19:57; Start 08/29/25 at 17:30; Stop 08/29/25 at 17:35; Status DC Sodium Chloride 1,000 ml @ 150 mls/hr Q6H40M IV Last administered on 08/31/25at 16:16; Start 08/29/25 at 18:30; Stop 09/01/25 at 09:29; Status DC Dexmedetomidine/ Sodium Chloride 400 mcg STK-MED ONCE IV; Start 08/29/25 at 19:56; Stop 08/29/25 at 19:56; Status DC Norepinephrine Bitartrate 32 mg/ Sodium Chloride 250 ml @ 0 mls/hr Q0M STAT IV Last administered on 08/29/25at 21:13; Start 08/29/25 at 21:01; Stop 08/29/25 at 21:07; Status DC Magnesium Sulfate 50 ml @ 0 mls/hr PROTOCOL IV Last administered on 09/13/25at 05:22; Start 08/30/25 at 10:00; Stop 09/29/25 at 09:59 Morphine Sulfate 2 mg ONCE ONCE IVP Last administered on 08/31/25at 02:24; Start 08/31/25 at 02:30; Stop 08/31/25 at 02:31; Status DC Potassium Phosphate 250 ml @ 42 mls/hr PROTOCOL ONCE IV Last administered on 08/31/25at 10:11; Start 08/31/25 at 09:00; Stop 08/31/25 at 14:57; Status DC Multivitamins/ Minerals 10 ml/ Chromium/Copper/ Manganese/Zinc 3 ml/Amino Acids/ Electrolytes/ Dextrose 2,000 ml @ 83 mls/hr ONCE ONCE IV Last administered on 08/31/25at 20:53; Start 08/31/25 at 20:00; Stop 09/01/25 at 11:25; Status DC Midodrine 10 mg BID PO; Start 09/01/25 at 09:00; Stop 08/31/25 at 18:36; Status DC Midodrine 10 mg ONCE ONCE PO Last administered on 08/31/25at 18:36; Start 08/31/25 at 18:30; Stop 08/31/25 at 18:31; Status DC Midodrine 10 mg TID PO Last administered on 09/08/25at 16:16; Start 09/01/25 at 09:00; Stop 09/08/25 at 17:20; Status DC Pharmacy Profile Note 1 each ONCE MIS; Start 08/31/25 at 23:30; Stop 08/31/25 at 23:17; Status DC Meropenem 500 mg Q24H IVPB Last administered on 09/09/25at 23:40; Start 08/31/25 at 23:30; Stop 09/10/25 at 02:29; Status DC Morphine Sulfate 2 mg Q4H PRN IVP Last administered on 09/05/25at 04:28; Start 09/01/25 at 05:30; Stop 09/05/25 at 13:19; Status DC Propofol 200 mg STK-MED ONCE IV; Start 09/01/25 at 09:53; Stop 09/01/25 at 09:53; Status DC Ketamine HCl 50 mg STK-MED ONCE .ROUTE; Start 09/01/25 at 09:53; Stop 09/01/25 at 09:53; Status DC Pantoprazole Sodium 40 mg BID IVP Last administered on 09/03/25at 09:16; Start 09/01/25 at 21:00; Stop 09/03/25 at 14:32; Status DC Lactulose 20 gm TID PO Last administered on 09/05/25at 08:06; Start 09/01/25 at 14:00; Stop 09/05/25 at 10:44; Status DC Multivitamins/ Minerals 10 ml/ Amino Acids/ Electrolytes/ Dextrose 2,000 ml @ 83 mls/hr ONCE ONCE IV Last administered on 09/01/25at 22:13; Start 09/01/25 at 20:00; Stop 09/02/25 at 20:05; Status DC Magnesium Sulfate 50 ml @ 0 mls/hr PROTOCOL IV; Start 09/02/25 at 13:30; Stop 09/02/25 at 13:04; Status DC Magnesium Sulfate 50 ml @ 0 mls/hr PROTOCOL IV; Start 09/03/25 at 08:00; Stop 09/03/25 at 07:43; Status DC Pantoprazole Sodium 40 mg DAILY PO Last administered on 09/05/25at 08:06; Start 09/04/25 at 09:00; Stop 09/06/25 at 00:03; Status DC Duloxetine HCl 30 mg BID PO Last administered on 09/09/25at 10:37; Start 09/03/25 at 21:00; Stop 09/09/25 at 11:10; Status DC Psyllium Hydrophilic Mucilloid 1 tbs TID PO Last administered on 09/11/25at 20:32; Start 09/04/25 at 14:00; Stop 09/12/25 at 16:49; Status DC Cyclobenzaprine HCl 5 mg TID PRN PO; Start 09/05/25 at 11:00; Stop 10/05/25 at 10:59 Home Med (Medroxyprogesterone Acetate (Provera) 1 TAB) DAILY PO; Start 09/06/25 at 09:00; Stop 10/06/25 at 08:59 Atorvastatin Calcium 5 mg HS PO Last administered on 09/13/25at 21:22; Start 09/05/25 at 21:00; Stop 10/05/25 at 20:59 Lactulose 20 gm BID PO Last administered on 09/11/25at 08:16; Start 09/05/25 at 21:00; Stop 09/12/25 at 16:49; Status DC Morphine Sulfate 1 mg Q4H PRN IVP Last administered on 09/06/25at 23:40; Start 09/05/25 at 13:30; Stop 09/07/25 at 11:35; Status DC Lactated Ringer's 1,000 ml @ 100 mls/hr Q10H IV Last administered on 09/06/25at 08:35; Start 09/06/25 at 00:00; Stop 09/06/25 at 18:44; Status DC Pantoprazole Sodium 40 mg BID IVP Last administered on 09/13/25at 21:22; Start 09/06/25 at 09:00; Stop 10/06/25 at 08:59 Enoxaparin Sodium 1 unit Q12H SQ; Start 09/06/25 at 13:30; Stop 09/06/25 at 13:21; Status DC Enoxaparin Sodium 60 mg Q12H SQ Last administered on 09/07/25at 14:29; Start 09/06/25 at 13:30; Stop 09/07/25 at 15:03; Status DC Folic Acid 1 mg DAILY PO Last administered on 09/13/25at 09:47; Start 09/08/25 at 09:00; Stop 10/08/25 at 08:59 Vitamin B Complex 1,000 mcg DAILY PO Last administered on 09/13/25at 09:47; Start 09/08/25 at 09:00; Stop 10/08/25 at 08:59 Sodium Bicarbonate 1,300 mg TID PO Last administered on 09/08/25at 16:15; Start 09/07/25 at 14:00; Stop 09/08/25 at 18:00; Status DC Morphine Sulfate 0.5 mg Q4H PRN IVP Last administered on 09/08/25at 04:27; Start 09/07/25 at 13:30; Stop 09/08/25 at 09:11; Status DC Apixaban 10 mg BID PO Last administered on 09/07/25at 22:06; Start 09/07/25 at 22:00; Stop 09/08/25 at 01:42; Status DC Apixaban 10 mg BID PO; Start 09/08/25 at 09:30; Stop 09/08/25 at 10:13; Status DC Acetaminophen/ Hydrocodone Bitart 2 tab Q4H PRN PO Last administered on 09/13/25at 00:59; Start 09/08/25 at 09:30; Stop 09/13/25 at 09:29; Status DC Apixaban 5 mg BID PO Last administered on 09/11/25at 20:32; Start 09/08/25 at 21:00; Stop 09/13/25 at 08:14; Status DC Midodrine 5 mg TID PO Last administered on 09/09/25at 15:24; Start 09/08/25 at 21:00; Stop 09/10/25 at 08:05; Status DC Melatonin 5 mg ONCE ONCE PO Last administered on 09/08/25at 21:35; Start 09/08/25 at 21:00; Stop 09/08/25 at 21:01; Status DC Morphine Sulfate 0.5 mg Q4H PRN IVP; Start 09/08/25 at 18:00; Stop 09/09/25 at 11:10; Status DC Sodium Bicarbonate 1,300 mg TID PO Last administered on 09/10/25at 10:31; Start 09/09/25 at 09:00; Stop 09/10/25 at 12:00; Status DC Mirtazapine 7.5 mg HS PO Last administered on 09/11/25at 20:31; Start 09/09/25 at 21:00; Stop 09/12/25 at 11:05; Status DC Midodrine 5 mg BID PO Last administered on 09/10/25at 21:42; Start 09/10/25 at 09:00; Stop 09/11/25 at 07:21; Status DC Sodium Bicarbonate 1,300 mg QID PO Last administered on 09/13/25at 21:22; Start 09/10/25 at 17:00; Stop 10/10/25 at 16:59 Midodrine 5 mg DAILY20 PO Last administered on 09/11/25at 20:31; Start 09/11/25 at 20:00; Stop 09/12/25 at 09:00; Status DC Quetiapine Fumarate 25 mg ONCE PRN PO Last administered on 09/13/25at 00:58; Start 09/11/25 at 21:00; Stop 09/13/25 at 08:14; Status DC Mirtazapine 15 mg HS PO Last administered on 09/13/25at 21:22; Start 09/12/25 at 21:00; Stop 10/12/25 at 20:59 Lactulose 20 gm DAILY PO; Start 09/12/25 at 17:00; Stop 09/12/25 at 17:00; Status DC Psyllium Hydrophilic Mucilloid 1 tbs BID PO Last administered on 09/12/25at 17:19; Start 09/12/25 at 17:00; Stop 09/12/25 at 18:00; Status DC Propofol 200 mg STK-MED ONCE IV; Start 09/14/25 at 12:38; Stop 09/14/25 at 12:39; Status DC BENEDICTO OBRIEN Jr. PAC Sep 14, 2025 15:22
[2025-09-15] VITALS (9 sets, daily range): BP systolic 109–130; BP diastolic 58–74; PULSE 88–107; RESP 16–24; TEMP 97.8–98.8; O2SAT 95–100
[2025-09-15 04:59] LABS: IMMATURE GRANULOCYTE ABSOLUTE 0.02 K/uL (0-1); NUCLEATED RED BLOOD CELLS 0.0 % (0.0-0.19); PLATELET COUNT (AUTO) 204 K/uL (130-400); RED BLOOD CELL COUNT(AUTO) 2.71 MIL/uL (4.00-5.50); RED CELL DISTRIBUTION WIDTH 19.5 % (11.0-15.5); WHITE BLOOD COUNT (AUTO) 4.2 K/uL (4.8-10.8)
[2025-09-15 05:03] LABS: CREATININE 1.0 mg/dL (0.5-1.0); GLOMERULAR FILTR. RATE CALC 66.0 mL/min (>90); GLUCOSE,RANDOM 101.0 mg/dL (70-105); SODIUM SERUM 133.0 mmol/L (136-145); UREA NITROGEN, BLOOD 17.0 mg/dL (7-18)
--- NOTE | 2025-09-15 10:45 | PN ---
NEPHROLOGY PROGRESS NOTE Date/Time Patient Seen: Sep 15, 2025 SUBJECTIVE: This is a 55-year-old female with a past medical history of diabetes mellitus type 2, liver cirrhosis, esophageal varices. She initially presented to the hospital with GI bleeding. The patient did have significant hyperkalemia upon admission and did require one course of dialysis. The patient's renal function has greatly improved. The patient had been having some hematochezia through the ostomy and the patient is being seen by Surgical Service and GI She continues to be followed by wound care. The patient is being seen as a followup visit for all of the above. Renal function and electrolytes have been stable. Hemoglobin has remained stable S/P EGD, Eliquis has been resumed, pending hemoglobin check She was seen in the medical floor, in no acute distress Multiple family members at the bedside REVIEW OF SYSTEMS: GENERAL: Positive for generalized weakness NEUROLOGIC: Negative for any blurry vision, blind spots, double vision, facial asymmetry, dysphagia, dysarthria, hemiparesis, hemisensory deficits, vertigo, ataxia. HEENT: Negative for any head trauma, neck trauma, neck stiffness, photophobia, phonophobia, sinusitis, rhinitis. CARDIAC: Negative for any chest pain, dyspnea on exertion, paroxysmal nocturnal dyspnea, peripheral edema. PULMONARY: Negative for any shortness of breath, wheezing, COPD, or TB exposure. GASTROINTESTINAL: Negative for any abdominal pain, nausea, vomiting, bright red blood per rectum, melena. GENITOURINARY: Negative for any dysuria, hematuria, incontinence. INTEGUMENTARY: Negative for any rashes, cuts, insect bites. RHEUMATOLOGIC: Negative for any joint pains, photosensitive rashes, history of vasculitis or kidney problems. HEMATOLOGIC: Negative for any abnormal bruising, frequent infections or bleeding. Vital Signs (last 8hr) Date Time Temp Pulse Resp B/P (MAP) Pulse Ox O2 Delivery O2 Flow Rate FiO2 09/15/25 08:10 97.9 92 18 109/58 95 Room Air 09/15/25 04:00 97.9 90 24 110/65 97 Room Air PHYSICAL EXAM: GENERAL: Alert and oriented x 3. No acute distress. Well-nourished. EYES: EOMI. Anicteric. HENT: Moist mucous membranes. No scleral icterus. No cervical lymphadenopathy. LUNGS: Clear to auscultation bilaterally. No accessory muscle use. CARDIOVASCULAR: Regular rate and rhythm. No murmur. No JVD. ABDOMEN: Soft, non-tender and non-distended. No palpable masses. Ileostomy in place EXTREMITIES: No edema. Non-tender. SKIN: No rashes or lesions. Warm. NEUROLOGIC: No focal neurological deficits. CN II-XII grossly intact, but not individually tested. PSYCHIATRIC: Cooperative. Appropriate mood and affect. Current Medications Medications (Trade) Dose Ordered Sig/[facility] Route Start Time Stop Time Status Last Admin Dose Admin Apixaban (EliquIS) 5 mg BID PO 09/08/25 21:00 10/08/25 20:59 09/11/25 08:17 5 MG Apixaban (EliquIS) 10 mg BID PO 09/07/25 22:00 09/08/25 01:42 DC 09/07/25 22:06 10 MG Apixaban (EliquIS) 10 mg BID PO 09/08/25 09:30 09/08/25 10:13 DC Atorvastatin Calcium (LIPItor 10MG) 5 mg HS PO 09/05/25 21:00 10/05/25 20:59 09/10/25 20:25 5 MG Calcium Gluconate (Calcium Gluc 1gm Vial) 1 gm ONCE IV 08/29/25 09:30 08/29/25 09:23 DC Dextrose/Sodium Chloride 1,000 ml @ 0 mls/hr AD IV 08/29/25 12:30 08/29/25 16:05 DC Duloxetine HCl (CymbALTA 30 mg CAP) 30 mg BID PO 09/03/25 21:00 09/09/25 11:10 DC 09/09/25 10:37 30 MG Enoxaparin Sodium (Lovenox (Pharmacy To Dose)) 1 unit Q12H SQ 09/06/25 13:30 09/06/25 13:21 DC Enoxaparin Sodium (Lovenox 60mg) 60 mg Q12H SQ 09/06/25 13:30 09/07/25 15:03 DC 09/07/25 14:29 60 MG Folic Acid (FOLic ACID 1 MG TABLET) 1 mg DAILY PO 09/08/25 09:00 10/08/25 08:59 09/11/25 08:16 1 MG Home Med (Home Medication) (Medroxyprogesterone Acetate (Provera) 1 TAB) DAILY PO 09/06/25 09:00 10/06/25 08:59 Insulin Human Regular (humuLIN R 100 UNIT/ML 3ML) 5 unit ONCE IV 08/29/25 09:30 08/29/25 09:25 DC Insulin Human Regular (humuLIN R 100 UNIT/ML 3ML) INSULIN SLIDING SCAL... ACHS SQ 08/29/25 11:30 09/28/25 11:29 09/10/25 20:29 2 UNIT Insulin Human Regular 100 unit/ Sodium Chloride 101 ml @ 0 mls/hr PROTOCOL IV 08/29/25 12:30 08/29/25 16:05 DC Lactated Ringer's 1,000 ml @ 100 mls/hr Q10H IV 09/06/25 00:00 09/06/25 18:44 DC 09/06/25 08:35 100 MLS/HR Lactulose (Constulose 20gm/ 30ml Udcup) 20 gm BID PO 09/05/25 21:00 10/01/25 13:59 09/11/25 08:16 20 GM Lactulose (Constulose 20gm/ 30ml Udcup) 20 gm TID PO 09/01/25 14:00 09/05/25 10:44 DC 09/05/25 08:06 20 GM Magnesium Sulfate 50 ml @ 0 mls/hr PROTOCOL IV 08/29/25 12:30 08/29/25 16:05 DC Magnesium Sulfate 50 ml @ 0 mls/hr PROTOCOL IV 08/30/25 10:00 09/29/25 09:59 09/08/25 04:26 25 MLS/HR Magnesium Sulfate 50 ml @ 0 mls/hr PROTOCOL IV 09/02/25 13:30 09/02/25 13:04 DC Magnesium Sulfate 50 ml @ 0 mls/hr PROTOCOL IV 09/03/25 08:00 09/03/25 07:43 DC Meropenem (Merrem 500mg) 500 mg Q24H IVPB 08/29/25 10:00 08/31/25 09:59 DC 08/30/25 09:46 500 MG Meropenem (Merrem 500mg) 500 mg Q24H IVPB 08/31/25 23:30 09/10/25 02:29 DC 09/09/25 23:40 500 MG Midodrine (PROAMatine 5 MG TABLET) 5 mg BID PO 09/10/25 09:00 09/11/25 07:21 DC 09/10/25 21:42 5 MG Midodrine (PROAMatine 5 MG TABLET) 5 mg DAILY20 PO 09/11/25 20:00 09/12/25 09:00 Midodrine (PROAMatine 5 MG TABLET) 5 mg TID PO 09/08/25 21:00 09/10/25 08:05 DC 09/09/25 15:24 5 MG Midodrine (PROAMatine 5 MG TABLET) 10 mg BID PO 09/01/25 09:00 08/31/25 18:36 DC Midodrine (PROAMatine 5 MG TABLET) 10 mg TID PO 09/01/25 09:00 09/08/25 17:20 DC 09/08/25 16:16 10 MG Mirtazapine (REMeron 15 MG TAB) 7.5 mg HS PO 09/09/25 21:00 10/09/25 20:59 09/10/25 20:24 7.5 MG Norepinephrine Bitartrate 32 mg/ Sodium Chloride 250 ml @ 0 mls/hr Q0M STAT IV 08/29/25 21:01 08/29/25 21:07 DC 08/29/25 21:13 0 MLS/HR Octreotide Acetate 1250 mcg/ Sodium Chloride 250 ml @ 0 mls/hr PROTOCOL IV 08/29/25 08:30 09/01/25 10:32 DC 08/31/25 10:18 5 MLS/HR Pantoprazole Sodium (PROTonix 40MG INJ) 40 mg BID IVP 09/01/25 21:00 09/03/25 14:32 DC 09/03/25 09:16 40 MG Pantoprazole Sodium (PROTonix 40MG INJ) 40 mg BID IVP 09/06/25 09:00 10/06/25 08:59 09/11/25 08:16 40 MG Pantoprazole Sodium (PROTonix 40MG TAB) 40 mg DAILY PO 09/04/25 09:00 09/06/25 00:03 DC 09/05/25 08:06 40 MG Pantoprazole Sodium 80 mg/ Sodium Chloride 100 ml @ 10 mls/hr Q10H IV 08/29/25 08:30 09/01/25 10:32 DC 09/01/25 05:50 10 MLS/HR Pharmacy Profile Note (Pharmacy Communication) 1 each ONCE MISC 08/29/25 09:30 08/29/25 09:35 DC Pharmacy Profile Note (Pharmacy Communication) 1 each ONCE MISC 08/31/25 23:30 08/31/25 23:17 DC Psyllium Hydrophilic Mucilloid (Metamucil) 1 tbs TID PO 09/04/25 14:00 10/04/25 13:59 09/11/25 08:17 1 TBS Sodium Bicarbonate 150 meq/Dextrose 1,150 ml @ 125 mls/hr Q9H12M IVP 08/29/25 10:00 08/30/25 10:12 DC 08/30/25 08:07 125 MLS/HR Sodium Bicarbonate (Sodium Bicarbonate) 1,300 mg QID PO 09/10/25 17:00 10/10/25 16:59 09/11/25 08:16 1,300 MG Sodium Bicarbonate (Sodium Bicarbonate) 1,300 mg TID PO 09/07/25 14:00 09/08/25 18:00 DC 09/08/25 16:15 1,300 MG Sodium Bicarbonate (Sodium Bicarbonate) 1,300 mg TID PO 09/09/25 09:00 09/10/25 12:00 DC 09/10/25 10:31 1,300 MG Sodium Chloride 250 ml @ 0 mls/hr AD IV 08/29/25 17:30 09/28/25 17:29 Sodium Chloride 1,000 ml @ 0 mls/hr Q0M IV 08/29/25 16:00 08/29/25 16:03 DC Sodium Chloride 1,000 ml @ 0 mls/hr Q0M IV 08/29/25 16:00 09/01/25 08:01 DC 08/29/25 16:10 500 MLS/HR Sodium Chloride 1,000 ml @ 125 mls/hr Q8H IV 08/29/25 09:30 08/29/25 09:57 DC Sodium Chloride 1,000 ml @ 150 mls/hr Q6H40M IV 08/29/25 18:30 09/01/25 09:29 DC 08/31/25 16:16 150 MLS/HR Sodium Chloride 1,000 ml @ 200 mls/hr PROTOCOL IV 08/29/25 12:30 08/29/25 16:05 DC Sodium Chloride 1,000 ml @ 999 mls/hr Q1H1M IV 08/29/25 09:30 08/29/25 09:06 DC Thiamine HCl (Vitamin B-1) 200 mg Q12H IVP 08/29/25 09:30 09/02/25 09:30 DC 09/02/25 08:56 200 MG Vitamin B Complex (Vitamin B-12) 1,000 mcg DAILY PO 09/08/25 09:00 10/08/25 08:59 09/11/25 08:16 1,000 MCG LABORATORY: [ ] Hematology Labs: Test 09/15/25 04:33 Range/Units White Blood Count 4.2 L 4.8-10.8 K/uL Red Blood Count 2.71 L 4.00-5.50 MIL/uL Hemoglobin 8.4 L 12.0-16.0 g/dL Hematocrit 26.7 L 36-48 % Mean Corpuscular Volume 98.5 79-99 fL Mean Corpuscular Hemoglobin 31.0 27.0-33.0 pg Mean Corpuscular Hemoglobin Concent 31.5 L 32.0-36.0 g/dL Red Cell Distribution Width 19.5 H 11.0-15.5 % Platelet Count 204 130-400 K/uL Mean Platelet Volume 9.6 7.5-10.5 fL Immature Granulocyte % (Auto) 0.5 0-1 % Neutrophils (%) (Auto) 52.1 40.0-77.0 % Lymphocytes (%) (Auto) 32.0 21.0-51.0 % Monocytes (%) (Auto) 7.8 3.0-13.0 % Eosinophils (%) (Auto) 6.9 0.0-8.0 % Basophils (%) (Auto) 0.7 0.0-5.0 % Neutrophils # (Auto) 2.2 1.8-7.7 K/uL Lymphocytes # (Auto) 1.4 1.0-4.8 K/uL Monocytes # (Auto) 0.3 0.1-1.0 K/uL Eosinophils # (Auto) 0.29 0.00-0.70 K/uL Basophils # (Auto) 0.03 0.00-0.20 K/uL Absolute Immature Granulocyte (auto 0.02 0-1 K/uL Nucleated Red Blood Cells 0.0 0.0-0.19 % Chemistry Labs: Test 09/15/25 08:49 09/15/25 05:34 09/15/25 04:33 09/14/25 04:27 Range/Units Lactic Acid Level 2.0 0.8-2.5 mmol/L C-Reactive Protein, Quantitative 4.60 H 0.5-3.0 mg/L Whole Blood Glucose 92 70-110 MG/DL Sodium Level 133 L 136-145 mmol/L Potassium Level 3.7 3.5-5.1 mmol/L Chloride Level 106 101-111 mmol/L Carbon Dioxide Level 19 L 21-32 mmol/L Blood Urea Nitrogen 17 7-18 mg/dL Creatinine 1.0 0.5-1.0 mg/dL Glomerular Filtration Rate Calc 66 >90 mL/min Random Glucose 101 70-105 mg/dL Total Calcium 8.4 L 8.5-10.1 mg/dL Magnesium Level 2.00 1.80-2.40 mg/dL Coagulation Labs: Test 09/14/25 04:27 Range/Units Prothrombin Time 12.4 H 9.6-11.6 SEC Prothromb Time International Ratio 1.19 H 0.85-1.15 DIAGNOSTICS / RADIOLOGY: [address] [address] IMAGING REPORT Signed PATIENT: DALLAS BUCHANAN MR#: [id number] : 1970 SEX: F AGE: 55 LOCATION: 3A ORDER 2300 STATUS: ADM IN REPORT#: [id number] SERVICE 0600 REASON: EVALUATE LUQ PIGRTAIL FOR POSSIBLE REMOVAL ORDERING PHYSICIAN: FE BRODY MD PROCEDURE: ABDO WO - CT ABDOMEN W/O CONTRAST EXAM: CT ABDOMEN WITHOUT INTRAVENOUS CONTRAST Technique: Multislice helical computed tomography from the diaphragms through the inguinal region with thin-section axial images and coronal/sagittal reformations; dose reduction applied per ALARA. CTDIvol 6.5 mGy; DLP 204.50 mGy???cm. Contrast: No intravenous contrast administered. Clinical Information: Evaluate left upper-quadrant pigtail catheter for possible removal. Comparison: CT abdomen without contrast 09/06 00:31 EST Findings: Lung bases: Residual trace left pleural effusion with adjacent atelectasis; previously described calcified right lower-lobe pulmonary nodule is not visualized on this limited abdominal coverage. Liver: Nodular hepatic contour consistent with cirrhosis; no focal hepatic lesion identified on this noncontrast study. Gallbladder and biliary tree: Multiple punctate calcifications along the gallbladder wall; no biliary ductal dilatation. Pancreas and spleen: Stable perisplenic fluid collection with an indwelling drainage catheter and adjacent mild fat stranding; pancreatic contour and attenuation are unremarkable. Adrenal glands: Unremarkable bilaterally. Kidneys and ureters: Normal size and morphology; no hydronephrosis or nephrolithiasis. Stomach and bowel: Stomach distended with food residue; right lumbar ileostomy with stable postsurgical bowel changes; no bowel obstruction identified. Peritoneum and mesentery: Stable mild mesenteric edema; interval resolution of the previously noted minimal free fluid along the greater curvature of the stomach; no new free fluid or free intraperitoneal air. Lymph nodes: No pathologic abdominopelvic lymphadenopathy. Vasculature: No abdominal aortic aneurysm. Abdominal wall/soft tissues: No focal collection aside from the described perisplenic drain. Osseous structures: Multilevel mild spondylosis; no acute osseous abnormality. Impression: * Stable perisplenic fluid collection with an indwelling drainage catheter and mild adjacent fat stranding???correlate with drain output, clinical status, and inflammatory markers to determine readiness for catheter removal; interval imaging or catheter study may be helpful if uncertainty persists. * Cirrhotic liver morphology. Recommend clinical and laboratory correlation and hepatology follow-up if not already established. * Gallbladder wall calcifications (punctate pattern) without biliary dilatation???correlate clinically; consider surgical consultation if porcelain gallbladder is suspected based on pattern and extent of calcification. * Residual trace left pleural effusion with adjacent atelectasis; stomach distention with food residue; right lumbar ileostomy with expected postsurgical changes; no new abdominopelvic free fluid or free air. * Compared with 09/06/2025 00:31 EST, the perisplenic collection is unchanged with the drain remaining in place, the previously described minimal perigastric free fluid has resolved, and the prior calcified right lower-lobe nodule is not visualized on this limited abdominal scan; otherwise, no significant interval change. /[place] DICTATED BY: EDWIGE LEDESMA MD DATE: 09/09/251409 ELECTRONICALLY SIGNED BY: EDWIGE LEDESMA MD DATE: 09/09/251409 PATIENT: DALLAS BUCHANAN MR#: [id number] : 1970 SEX: F AGE: 55 LOCATION: 3AH ORDER 2351 STATUS: ADM IN REPORT#: [id number] SERVICE 2346 REASON: abdiominal pain ORDERING PHYSICIAN: CYNTHIA ALEXANDER PROCEDURE: ABDO WO - CT ABDOMEN W/O CONTRAST EXAMINATION CT Abdomen Without IV Contrast CLINICAL HISTORY Patient presents with abdominal pain. TECHNIQUE Axial computed tomography images of the abdomen were obtained without intravenous contrast. CONTRAST No IV contrast administered. COMPARISON 09/01/2025. FINDINGS: LUNG BASES: Residual trace left pleural effusion with adjacent atelectasis. Interval resolution of previously described mild right pleural effusion. Stable calcified nodule in the right lower lobe. LIVER: Nodular hepatic contour consistent with cirrhosis. GALLBLADDER AND BILE DUCTS: Multiple punctate calcifications in the gallbladder wall. No biliary ductal dilatation. PANCREAS AND SPLEEN: Stable perisplenic fluid collection with drainage catheter in situ and adjacent fat stranding. ADRENAL GLANDS: Unremarkable. KIDNEYS AND URETERS: Normal in size and morphology. No hydronephrosis or nephrolithiasis. STOMACH AND BOWEL: Stomach distended with food residue. Right lumbar ileostomy with stable postsurgical bowel changes. Uncomplicated colonic diverticula. A component of mild constipation. PERITONEUM: Stable mild mesenteric edema. Significant interval resolution of the previously demonstrated minimal free fluid along the greater curvature of the stomach. No new free fluid or free air. LYMPH NODES: No significant lymphadenopathy. VASCULATURE: No abdominal aortic aneurysm. BONES: Multilevel mild spondylosis. IMPRESSION: Nodular cirrhotic liver. Stable perisplenic fluid collection with drainage catheter in situ and adjacent fat stranding. Right lumbar ileostomy with stable postsurgical bowel changes. Residual trace left pleural effusion with adjacent atelectasis. Interval resolution of the right pleural effusion. Stable calcified right lower lobe pulmonary nodule. Stomach distended with food residue. Uncomplicated colonic diverticula with mild constipation. Stable mild mesenteric edema with interval resolution of previously described minimal free fluid. Multiple punctate calcifications in the gallbladder wall, likely cholesterolosis. /[place] DICTATED BY: ELDON MILLER Jr., MD DATE: 09/06/25233 ELECTRONICALLY SIGNED BY: ELDON MILLER Jr., MD DATE: 09/06/25233 PATIENT: DALLAS BUCHANAN MR#: [id number] : 1970 SEX: F AGE: 55 LOCATION: 3AH ORDER 1319 STATUS: ADM IN REPORT#: [id number] SERVICE 131 REASON: R/o DVT versus SVT ORDERING PHYSICIAN: SONJA PERALTA MD PROCEDURE: VENOUS UNI - US VENOUS DOPPLER UNILATERAL ADDENDUM REPORT ADDENDUM: Results were shared by telephone at 10:59am on 09-06-25 and acknowledged by Patients Nurse Ms. Britt Robert /[facility] EXAMINATION: SPECTRAL DOPPLER ULTRASOUND EXAMINATION OF THE RIGHT UPPER EXTREMITY VEINS. CLINICAL HISTORY: To rule out DVT. COMPARISON: None. TECHNIQUE: Grayscale, color, and spectral Doppler images of the right upper extremity veins are submitted. FINDINGS: The internal jugular, subclavian, basilic, and brachial veins are patent. These veins show normal flow with physiological changes of phasicity and augmentation. The right axillary vein and cephalic veins are non-compressible and there is no flow on augmentation. IMPRESSION: Acute deep vein thrombosis in the right axillary vein. Right cephalic vein thrombosis. There is no deep vein thrombosis in the remainder of the right upper extmreiyt, /[place] DICTATED BY: TOBI LEAHY MD DATE: 09/06/251154 ELECTRONICALLY SIGNED BY: DATE: EXAMINATION: SPECTRAL DOPPLER ULTRASOUND EXAMINATION OF THE RIGHT UPPER EXTREMITY VEINS. CLINICAL HISTORY: To rule out DVT. COMPARISON: None. TECHNIQUE: Grayscale, color, and spectral Doppler images of the right upper extremity veins are submitted. FINDINGS: The internal jugular, subclavian, basilic, and brachial veins are patent. These veins show normal flow with physiological changes of phasicity and augmentation. The right axillary vein and cephalic veins are non-compressible and there is no flow on augmentation. IMPRESSION: Acute deep vein thrombosis in the right axillary vein. Right cephalic vein thrombosis. There is no deep vein thrombosis in the remainder of the right upper extmreiyt, /[facility] DICTATED BY: TOBI LEAHY MD DATE: 09/06/25941 ELECTRONICALLY SIGNED BY: TOBI LEAHY MD DATE: 09/06/25941 PATIENT: DALLAS BUCHANAN MR#: [id number] : 1970 SEX: F AGE: 55 LOCATION: 3AH ORDER 230 STATUS: ADM IN REPORT#: [id number] SERVICE 0600 REASON: hypoxic ORDERING PHYSICIAN: LOBO RICKS PROCEDURE: CXR1VW - CHEST 1VW EXAM: CR Chest, 1 View (Portable, Supine). CLINICAL HISTORY: Chest pain. COMPARISON: CR Chest, 2 View ??? 09/01/2025 01:13 AM EDT. FINDINGS: LUNGS: Area of haziness in left lower zone-Remained stable. Rest of the lungs are clear. No focal consolidation, pulmonary edema, or acute infiltrate. PLEURAL SPACES: No pleural effusion or pneumothorax. MEDIASTINUM: Cardiac size and mediastinal contours within normal limits. No acute osseous abnormality. LINES/DEVICES: Monitoring leads noted. No new devices identified. IMPRESSION: Area of haziness in left lower zone likely airspace opacity-Stable compared to previous radiograph. /[place] DICTATED BY: TOBI LEAHY MD DATE: 10/31/25 1138 ELECTRONICALLY SIGNED BY: TOBI LEAHY MD DATE: 09/03/25 113 PATIENT: DALLAS BUCHANAN MR#: [id number] : 1970 SEX: F AGE: 55 LOCATION: 2CV ORDER 1231 STATUS: ADM IN REPORT#: [id number] SERVICE 1227 REASON: EVALUATE LUQ PIGRTAIL FOR POSSIBLE REMOVAL ORDERING PHYSICIAN: SUSAN JHAVERI MD PROCEDURE: ABDO WO - CT ABDOMEN W/O CONTRAST ADDENDUM REPORT ADDENDUM: Results were shared by telephone at 11:21 pm on 09-01-25 and acknowledged by Patient's Nurse Jabier Bangura. /[place] EXAM: CT ABDOMEN WITHOUT INTRAVENOUS CONTRAST Technique: Multislice helical computed tomography of the abdomen was performed from the diaphragms through the iliac crests with axial images and coronal/sagittal reformations. Dose optimization per ALARA. Contrast: No intravenous contrast administered. Contrast Impression: Noncontrast technique limits assessment of enhancement-dependent pathology and characterization of fluid collections. Clinical Information: Evaluation of left upper quadrant pigtail drain for possible removal. Comparison: CT abdomen/pelvis without contrast dated 08/29/2025. Findings: Lung bases: Interval development of small bilateral pleural effusions with dependent subsegmental atelectasis in the lower lobes. Previously described tiny calcified nodules are not conspicuous on the current noncontrast images. Liver: Morphologic features of cirrhosis are unchanged. No focal hepatic lesion identified on this noncontrast study. Gallbladder and bile ducts: Decompressed gallbladder with a cholecystostomy tube in place, stable. No biliary ductal dilatation. Pancreas: Normal contour without peripancreatic inflammatory change. Spleen: Infrasplenic fluid collection adjacent to the splenic inferior pole measuring approximately 2.7 ??? 3.5 ??? 6.4 cm (previously 2.7 ??? 2.2 ??? 5.1 cm), with a pigtail drainage catheter in situ and mild adjacent fat stranding. Adrenal glands: Normal morphology bilaterally. Kidneys and ureters: Kidneys within normal size and contour; no hydronephrosis or hydroureter; no nephrolithiasis. Urinary bladder: Dueñas catheter in place with small intraluminal gas foci, likely iatrogenic; bladder otherwise unremarkable. Stomach and bowel: Right iliac fossa ileostomy defect ( 2.4 cm) and postoperative bowel changes, stable. No evidence of bowel obstruction, enteritis, or colitis. Peritoneum and mesentery: New minimal free fluid predominantly along the greater curvature of the stomach with mild mesenteric edema (anasarca). No free intraperitoneal air. Lymph nodes: No pathologic abdominopelvic lymphadenopathy. Vasculature: Abdominal aorta normal in caliber. Abdominal wall/soft tissues: Expected postoperative changes at the ostomy site; otherwise unremarkable. Osseous structures: No acute or aggressive osseous abnormality; mild degenerative changes in the visualized spine. Impression: * Infrasplenic collection with indwelling pigtail drain has increased in size compared with 08/29/2025 (now 2.7 ??? 3.5 ??? 6.4 cm from 2.7 ??? 2.2 ??? 5.1 cm) with mild surrounding fat stranding???ongoing collection persists. Drain removal is not advised at this time based on interval enlargement; recommend interventional radiology review for catheter position/patency, consideration of catheter upsizing or repositioning, and correlation with output and culture. * New small bilateral pleural effusions with dependent basilar atelectasis. Monitor clinically; consider diuresis or follow-up imaging as indicated. * Cirrhotic hepatic morphology, unchanged. * Decompressed gallbladder with cholecystostomy tube in place, stable; no biliary ductal dilatation. * Minimal ascites and mild mesenteric edema (anasarca), new from prior. * Dueñas catheter with small intravesical gas, likely iatrogenic. * No bowel obstruction, hydronephrosis, or nephrolithiasis identified. /[place] DICTATED BY: EDWIGE LEDESMA MD DATE: 09/01/25 713 ELECTRONICALLY SIGNED BY: DATE: EXAM: CT ABDOMEN WITHOUT INTRAVENOUS CONTRAST Technique: Multislice helical computed tomography of the abdomen was performed from the diaphragms through the iliac crests with axial images and coronal/sagittal reformations. Dose optimization per ALARA. Contrast: No intravenous contrast administered. Contrast Impression: Noncontrast technique limits assessment of enhancement-dependent pathology and characterization of fluid collections. Clinical Information: Evaluation of left upper quadrant pigtail drain for possible removal. Comparison: CT abdomen/pelvis without contrast dated 08/29/2025. Findings: Lung bases: Interval development of small bilateral pleural effusions with dependent subsegmental atelectasis in the lower lobes. Previously described tiny calcified nodules are not conspicuous on the current noncontrast images. Liver: Morphologic features of cirrhosis are unchanged. No focal hepatic lesion identified on this noncontrast study. Gallbladder and bile ducts: Decompressed gallbladder with a cholecystostomy tube in place, stable. No biliary ductal dilatation. Pancreas: Normal contour without peripancreatic inflammatory change. Spleen: Infrasplenic fluid collection adjacent to the splenic inferior pole measuring approximately 2.7 ??? 3.5 ??? 6.4 cm (previously 2.7 ??? 2.2 ??? 5.1 cm), with a pigtail drainage catheter in situ and mild adjacent fat stranding. Adrenal glands: Normal morphology bilaterally. Kidneys and ureters: Kidneys within normal size and contour; no hydronephrosis or hydroureter; no nephrolithiasis. Urinary bladder: Dueñas catheter in place with small intraluminal gas foci, likely iatrogenic; bladder otherwise unremarkable. Stomach and bowel: Right iliac fossa ileostomy defect ( 2.4 cm) and postoperative bowel changes, stable. No evidence of bowel obstruction, enteritis, or colitis. Peritoneum and mesentery: New minimal free fluid predominantly along the greater curvature of the stomach with mild mesenteric edema (anasarca). No free intraperitoneal air. Lymph nodes: No pathologic abdominopelvic lymphadenopathy. Vasculature: Abdominal aorta normal in caliber. Abdominal wall/soft tissues: Expected postoperative changes at the ostomy site; otherwise unremarkable. Osseous structures: No acute or aggressive osseous abnormality; mild degenerative changes in the visualized spine. Impression: * Infrasplenic collection with indwelling pigtail drain has increased in size compared with 08/29/2025 (now 2.7 ??? 3.5 ??? 6.4 cm from 2.7 ??? 2.2 ??? 5.1 cm) with mild surrounding fat stranding???ongoing collection persists. Drain removal is not advised at this time based on interval enlargement; recommend interventional radiology review for catheter position/patency, consideration of catheter upsizing or repositioning, and correlation with output and culture. * New small bilateral pleural effusions with dependent basilar atelectasis. Monitor clinically; consider diuresis or follow-up imaging as indicated. * Cirrhotic hepatic morphology, unchanged. * Decompressed gallbladder with cholecystostomy tube in place, stable; no biliary ductal dilatation. * Minimal ascites and mild mesenteric edema (anasarca), new from prior. * Dueñas catheter with small intravesical gas, likely iatrogenic. * No bowel obstruction, hydronephrosis, or nephrolithiasis identified. /[place] DICTATED BY: EDWIGE LEDESMA MD DATE: 09/01/252258 ELECTRONICALLY SIGNED BY: EDWIGE LEDESMA MD DATE: 09/01/252258 PATIENT: DALLAS BUCHANAN MR#: [id number] : 1970 SEX: F AGE: 55 LOCATION: 2CV ORDER 1130 STATUS: ADM IN REPORT#: [id number] SERVICE [id number] REASON: Left lower lung lobe opacities ORDERING PHYSICIAN: SONJA PERALTA MD PROCEDURE: CHEST WO - CT CHEST W/O CONTRAST EXAM: CT CHEST WITHOUT INTRAVENOUS CONTRAST Technique: Helical computed tomography of the chest from thoracic inlet through the upper abdomen without intravenous contrast, with axial images and coronal/sagittal reformations. Dose optimization performed in accordance with ALARA. Clinical Information: Left lower lung lobe opacities. Comparison: Chest radiograph dated 09/01/2025 at 05:46 EDT. Findings: Soft tissues: Unremarkable. Lungs and large airways: Central airways are patent. Subsegmental consolidation in the posterior segments of both lower lobes. Additional subsegmental consolidation in the superior segment of the left upper lobe. Linear atelectatic bands in the superior lingular segment and posterior segment of the left upper lobe. A calcified pulmonary nodule measures 5 mm in the right lower lobe (series 3, image 29). Pleura: Minimal bilateral pleural effusions. No pneumothorax. Heart and pericardium: Cardiac size within normal limits. No pericardial effusion. Aorta: Normal course and caliber on this noncontrast study. Pulmonary arteries: Evaluation limited without contrast; no large central filling defect is seen on this noncontrast exam. Lymph nodes: No pathologically enlarged mediastinal or hilar lymph nodes. Mediastinum and toya: No mass identified. Chest wall and lower neck: No acute abnormality. Bones/joints: No acute osseous abnormality. Upper abdomen: Visualized portions without acute abnormality; detailed abdominal findings are reported separately. Impression: * Subsegmental consolidation in the posterior segments of both lower lobes and in the superior segment of the left upper lobe with minimal bilateral pleural effusions???most compatible with multifocal atelectasis versus infection/aspiration in the appropriate clinical context. Recommend clinical correlation and short-interval follow-up chest imaging to document resolution. * Benign-appearing calcified pulmonary nodule in the right lower lobe measuring 5 mm (series 3, image 29), consistent with a granuloma; no additional suspicious nodules identified. * No pneumothorax or acute cardiomediastinal abnormality identified on this noncontrast examination. /[place] DICTATED BY: EDWIGE LEDESMA MD DATE: 09/01/252255 ELECTRONICALLY SIGNED BY: EDWIGE LEDESMA MD DATE: 09/01/252255 PATIENT: DALLAS BUCHANAN MR#: [id number] : 1970 SEX: F AGE: 55 LOCATION: 2CV ORDER 99 STATUS: ADM IN REPORT#: [id number] SERVICE [id number] REASON: hypoxic [facility] PROCEDURE: CXR1VW - CHEST 1VW EXAM: CR Chest, 1 View (Portable, Supine). CLINICAL HISTORY: Chest pain. COMPARISON: CR Chest, 2 View ??? 08/31/2025 01:13 AM EDT. FINDINGS: LUNGS: Mild prominence of bronchovascular markings in bilateral lower zone. Area of haziness in left lower zone. Lungs are clear. No focal consolidation, pulmonary edema, or acute infiltrate. PLEURAL SPACES: No pleural effusion or pneumothorax. MEDIASTINUM: Cardiac size and mediastinal contours within normal limits. Right internal jugular central venous catheter remains in similar position with the tip projecting over the distal superior vena cava, unchanged from prior. BONES: No acute osseous abnormality. LINES/DEVICES: Right IJ central venous catheter as described. Monitoring leads noted. No new devices identified. IMPRESSION: * Stable position of right IJ central venous catheter with tip at distal SVC. * Area of haziness in left lower zone likely airspace opacity-New finding compared to previous radiograph. * Mild prominence of bronchovascular markings in bilateral lower zone-New finding compared to previous radiograph. Signed By: EDWIGE LEDESMA M.D. /[place] DICTATED BY: TOBI LEAHY MD DATE: 09/01/251518 ELECTRONICALLY SIGNED BY: TOBI LEAHY MD DATE: 09/01/251518 PATIENT: DALLAS BUCHANAN MR#: [id number] : 1970 SEX: F AGE: 55 LOCATION: 2CV ORDER 99 STATUS: ADM IN REPORT#: [id number] SERVICE 06 REASON: hypoxic ORDERING PHYSICIAN: LOBO RICKS PROCEDURE: CXR1VW - CHEST 1VW EXAM: CR Chest, 1 View (Portable, Supine). CLINICAL HISTORY: Chest pain. COMPARISON: CR Chest, 2 View ??? 08/30/2025 01:13 AM EDT. FINDINGS: LUNGS: Lungs are clear. No focal consolidation, pulmonary edema, or acute infiltrate. PLEURAL SPACES: No pleural effusion or pneumothorax. MEDIASTINUM: Cardiac size and mediastinal contours within normal limits. Right internal jugular central venous catheter remains in similar position with the tip projecting over the distal superior vena cava, unchanged from prior. BONES: No acute osseous abnormality. LINES/DEVICES: Right IJ central venous catheter as described. Monitoring leads noted. No new devices identified. IMPRESSION: * Stable position of right IJ central venous catheter with tip at distal SVC. * No pneumothorax or acute cardiopulmonary abnormality. * No significant interval change compared with 08/30/2025 . /[place] DICTATED BY: EDWIGE LEDESMA MD DATE: 08/31/251851 ELECTRONICALLY SIGNED BY: EDWIGE LEDESMA MD DATE: 08/31/251851 PATIENT: DALLAS BUCHANAN MR#: [id number] : 1970 SEX: F AGE: 55 LOCATION: 2CV ORDER 8 STATUS: ADM IN REPORT#: [id number] SERVICE 170 REASON: severe renal failure ORDERING PHYSICIAN: BRADEN CONTRERAS MD PROCEDURE: RENAL - US RENAL SONOGRAM EXAM: RENAL AND URINARY BLADDER ULTRASOUND Technique: Grayscale and color Doppler sonography of both kidneys and the urinary bladder was performed. Study quality is adequate. Evaluation of the bladder and ureteral jets is limited by decompression from an indwelling catheter. Clinical Information: Severe renal failure. Findings: Right kidney: Measures 10.3 ??? 5.3 ??? 4.2 centimeters. Renal cortical thi ckness and echogenicity are within expected limits for technique. No focal mass is identified. No hydronephrosis. No renal calculi. No perinephric fluid collection. Left kidney: Measures 11.0 ??? 4.8 ??? 3.2 centimeters. The renal parenchyma is diffusely increased in echogenicity relative to the adjacent liver and spleen. No focal mass is identified. No hydronephrosis. No renal calculi. No perinephric fluid collection. Urinary bladder: Decompressed with a Dueñas catheter in situ. Bladder wall measures approximately 3 millimeters, which may appear relatively thick due to underdistention. No intraluminal mass or debris is identified on the limited evaluation. Impression: * Left kidney demonstrates increased parenchymal echogenicity, a nonspecific finding commonly associated with medical renal disease in the setting of renal failure. * No hydronephrosis or renal calculi identified bilaterally. * Decompressed urinary bladder with Dueñas catheter in place; apparent wall thickening likely related to underdistention. /[place] DICTATED BY: EDWIGE LEDESMA MD DATE: 08/29/252248 ELECTRONICALLY SIGNED BY: EDWIGE LEDESMA MD DATE: 08/29/252248 PATIENT: DALLAS BUCAHNAN MR#: [id number] : 1970 SEX: F AGE: 55 LOCATION: 2CV ORDER 1540 STATUS: ADM IN REPORT#: [id number] SERVICE 38 REASON: central line placement ORDERING PHYSICIAN: LOBO RICKS PROCEDURE: CXR1VW - CHEST 1VW EXAM: CR Chest, 2 View. CLINICAL HISTORY: central line placement COMPARISON: None provided. FINDINGS: Right IJ central venous catheter tip projects at the distal SVC. Right peripheral line overlies expected location of the right axillary vessels. LUNGS: The lungs show no infiltrate or other acute finding. Mild left basilar atelectasis. PLEURAL SPACES: No pleural effusion or pneumothorax. MEDIASTINUM: Cardiac size and mediastinal contours within normal limits. BONES: No aggressive appearing osseous lesion seen. Pigtail drainage catheter overlies the right upper quadrant. IMPRESSION: 1. Right IJ central venous catheter tip appropriately positioned in the distal SVC. 2. No acute cardiopulmonary findings. /[place] DICTATED BY: ELDON MILLER Jr., MD DATE: 08/29/251744 ELECTRONICALLY SIGNED BY: ELDON MILLER Jr., MD DATE: 08/29/251744 PATIENT: DALLAS BUCHANAN MR#: [id number] : 1970 SEX: F AGE: 55 LOCATION: 2CV ORDER 9 STATUS: ADM IN REPORT#: [id number] SERVICE 7 REASON: coffee ground emesis, hx of abdominal drain, nausea, vomiting, hx of cirrho ORDERING PHYSICIAN: BRADEN CONTRERAS MD PROCEDURE: ABD PEL WO - CT ABDOMEN/PELVIS W/O CONTRAST EXAM: CT Abdomen and Pelvis Without IV contrast CLINICAL HISTORY: coffee ground emesis, hx of abdominal drain, nausea, vomiting, hx of cirrho TECHNIQUE: Axial computed tomography images of the abdomen and pelvis without intravenous contrast. CONTRAST: No IV contrast. COMPARISON: Study dated 08/23/25. FINDINGS: LUNG BASES: Tiny calcified nodules in the posterior basal segment of the right lower lobe. There is mild dependent airspace disease within the bilateral lower lobes that is presumed to reflect atelectasis. No pleural effusions are seen. LIVER: There is cirrhotic hepatic morphology. Several small esophageal varices are noted. GALLBLADDER AND BILE DUCTS: The gallbladder is decompressed with a cholecystostomy tube in place. No biliary ductal dilatation is evident. PANCREAS: Unremarkable. SPLEEN: 2.7 x 2.2 x 5.1 cm infrasplenic collection with adjacent fat stranding and pigtail tube in place. ADRENAL GLANDS: Unremarkable. KIDNEYS, URETERS, AND BLADDER: The kidneys appear within normal limits. There is no hydronephrosis or hydroureter. No urinary calculi are seen. Dueñas's bulb in the urinary bladder with few air foci. STOMACH AND BOWEL: 2.4 cm ileostomy defect in the right iliac fossa and postoperative changes in the bowel loops. No evidence of bowel obstruction. No evidence suggesting enteritis or colitis. APPENDIX: No evidence of acute appendicitis on CT examination. PERITONEUM: No free fluid. No free air. LYMPH NODES: No lymphadenopathy is evident. REPRODUCTIVE: Unremarkable as visualized. VASCULATURE: No evidence of abdominal aortic aneurysm. BONES: No aggressive appearing osseous lesion. No acute osseous pathology evident. Mild degenerative changes in the spine. IMPRESSION: 1. Cirrhotic hepatic morphology. Several small esophageal varices are noted. 2. 2.7 x 2.2 x 5.1 cm infrasplenic collection with adjacent fat stranding and pigtail tube in place. 3. Cholecystostomy tube in decompressed gallbladder. 4. Ileostomy in right iliac fossa with postoperative changes. /[place] DICTATED BY: ELDON MILLER Jr., MD DATE: 08/29/251619 ELECTRONICALLY SIGNED BY: ELDON MILLER Jr., MD DATE: 08/29/251619 PATIENT: DALLAS BUCHANAN MR#: [id number] : 1970 SEX: F AGE: 55 LOCATION: EDHIP ORDER 6 STATUS: ADM IN REPORT#: [id number] SERVICE 5 REASON: sob ORDERING PHYSICIAN: MILAD WYNN MD PROCEDURE: CXR1VW - CHEST 1VW EXAM: CR Chest, 1 View. CLINICAL HISTORY: sob COMPARISON: None provided. FINDINGS: LUNGS: There is no mass, infiltrate, or acute pulmonary abnormality. Mild left basilar atelectasis and/or parenchymal scarring. PLEURAL SPACES: No evidence of pleural effusion or pneumothorax. MEDIASTINUM: Cardiac size and mediastinal contours within normal limits. BONES: No aggressive appearing osseous lesion seen. IMPRESSION: No acute cardiopulmonary pathology is evident. /[place] DICTATED BY: ELDON MLILER Jr., MD DATE: 08/29/251103 ELECTRONICALLY SIGNED BY: ELDON MILLER JDATE: 08/29/251103 ASSESSMENT: Severe hyperkalemia Anemia Acute renal failure Hyponatremia Acute upper GI bleeding- Hematemesis, dark output from ileostomy bag, POA, Improving Acute DVT of right axillary vein and right cephalic vein High output from ileostomy bag, not POA Hemorrhagic shock versus hypovolemic shock, POA, Resolved Hypovolemic hypochloremic hyponatremia, POA, Resolved Severe hyperkalemia, POA, Resolved Hyperammonemia, POA, Improving Lactic acidosis, POA, Resolved Hyperphosphatemia, POA, Resolved Starvation Ketoacidosis, POA Rule out occult sepsis, POA Recent extended hospitalization in [facility], 07/20/2025- 08/25/2025 for sepsis, acute abdomen, POA Severe Dehydration, POA, Improving History of esophageal varices, POA Acute Decompensated liver cirrhosis, POA Hx of acute cholecystitis, s/p cholecystostomy tube placement on 08/02/2025. Perisplenic abscess, s/p CT-guided drainage placement on 08/09/2025. 2.7 x 2.2 x 5.1 cm infrasplenic collection History of gastritis, POA Hx of Generalized peritonitis with ESBL E coli infection, POA Moderate Protein calorie malnutrition POA History of bilious peritonitis with small colonic anastomosis perforation s/p diagnostic laparoscopy, abdominal washout, ileostomy creation by Dr. Jhaveri, 07/21/2025 Hx of DM II, POA Recent colovesical fistula repair with sigmoid colon resection and anastomosis on PLAN: Labs, diagnostic, radiologic exams reviewed and interpreted by myself and supervising physician. We have reviewed external records in detail Require close monitoring of renal function and electrolytes Order CBC, CMP, and electrolytes in am Continue with antibiotics BiPAP as necessary, for respiratory distress Monitor blood pressure adjust medication doses as needed Avoid hypotensive episodes May use Dilaudid 0.5 mg IV every 6 hours as needed for severe pain Monitor blood sugars Strict intake, output, and daily weight should be monitored Please renally adjust medications Avoid nephrotoxic and nonsteroidal drugs Avoid contrast if possible Will continue to monitor renal function, anemia, electrolytes Treatment plan discussed with patient Questions were answered We have discussed with the other team physicians in detail about the care plan We will continue to monitor the patient closely ATTESTATION BY PHYSICIAN I have seen and examined the patient. I reviewed the documentation, medical decision making, and treatment plan as noted by the mid-level provider above. I agree with the findings and plan of care. CIELO PORTILLO MD, [facility] Sep 15, 2025 10:45
[2025-09-15] MEDS: SODIUM BICARB 50MEQ 50ML VIAL IV ONE (12:12)
--- NOTE | 2025-09-15 13:25 | PN ---
[facility] PROGRESS NOTE Date of Service: Sep 15, 2025 Time of Service: 13:18 SUBJECTIVE: As per admission notes "50-year-old female with underlying history of type 2 diabetes mellitus, history of liver cirrhosis, prior history of esophageal varices requiring banding in May,, history of robotic sigmoid resection with takedown of colovesical fistula who was recently hospitalized in [facility] from 07/20/2025 - 08/25/2025 patient was found to have bilious peritonitis with 2 mm perforation of colonic anastomosis requiring diagnostic laparoscopy, abdominal washout and drain placement with creation of diverting loop ileostomy. Patient was hospitalized for about one month and subsequently required IR guided drain placement as well. She was just discharged from the hospital on 08/25/2025. Patient's daughter reports that patient was having nausea and vomiting with poor oral intake at home. She started to have coffee-ground emesis today and she also noticed some right streaks of blood with a coffee-ground emesis. Stool has also been dark in the ileostomy bag. Patient is having moderate intensity abdominal pain as well. She has not been taking any NSAIDs. Daughter reports that patient has been very weak since her discharge in very debilitated. Patient denies active chest pain. Denies active shortness of breath. On presentation to the hospital, patient was noted to be afebrile with T-max of 97.5 F, heart rate of 100, blood pressure of 127/91. [place] [address], hemoglobin of 16.4, platelet count of 110202. BMP was repeated twice, BMP showed sodium of 117, potassium 7.0, chloride of 88, CO2 of seven, BUN of 83, creatinine 5.0, blood glucose of 99, calcium 10.4. Blood gas showed pH of 7.28, bicarb of close to eight, CO2 of 18, lactic acid of three. Patient will be admitted to ICU. Patient is presenting with severe renal failure with hyperkalemia and severe metabolic acidosis. Patient also with concerns for upper GI bleeding with coffee-ground emesis. Patient remains critically ill consultation with Intensive Care, Nephrology, GI will be requested. We we will obtain a CT abdomen pelvis without contrast for further evaluation as well. Patient is critically ill. Plan of care was discussed with patient and daughter at bedside" 08/30/2025 Patient was seen and examined at bedside. Her blood pressure has been low, 88/54, heart rate 86. She is currently on Levophed 0.2 Mcg, octreotide, Protonix, sodium bicarbonate drip. She received 2nd hemodialysis session yesterday. As per Nephrology, she will continue to receive dialysis inpatient. Her high anion gap metabolic acidosis is improving with sodium 134, carbon dioxide 31, chloride 96. Her creatinine has trended down from 5-1.8. General surgery consult is on board and we will follow up with their recommendations. Additionally, in the light of history of liver cirrhosis with esophageal varices, her recent hematemesis will be evaluated with GI consult and possible endoscopy. We discussed this with the patient and her family members present besides. Patient is started on Merrem and blood culture, urine cultures show no growth so far. Her lactic acid has trended down from 3.1 to 2.1. 08/31/2025 Patient was seen and examined at bedside in room 214. She continues to be on Levophed 0.1 which is being weaned off. She is also on Sandostatin and Protonix drip. Patient complained of mild pain along the sides of her drain but denied any nausea or episode of vomiting since Saturday. Minimal drainage was noted. Sodium bicarb was discontinued as per Nephrology. Her lab markers have improved with sodium 141, chloride 104, bicarb 32, creatinine 1, BUN 16, ammonia 34. Her urine sodium was less than 20 consistent with prerenal CYNTHIA. We are pending blood and urine culture results. Her total output in the past24 hours has been optimal, 2069. She is on sodium chloride 150 mL/hour. We are following gastroenterology recommendations of possible upper endoscopy in the morning if patient condition remains stable. 09/01/2025 Patient was seen and examined at bedside. She is off vasopressor support and is hemodynamically stable. Her chest x-ray showed opacity in the left lower lobe and we will follow up with CT scan of chest. She is started on 2nd day of ppm today. She successfully underwent EGD which showed small, less than 5 mm, esophageal varices with scar in the lower 3rd of the esophagus. Patient was noted to have portal hypertensive gastropathy which was biopsied. Duodenum was normal during examination. Patient is receiving Merrem and her blood culture and urine cultures have shown no growth so far. Due to her elevated ammonia levels, she will be started on lactulose. We will proceed with caution with respect to normal saline as patient's BNP is elevated. 09/02/2025 The patient has been seen and examined earlier this morning during my rounding, case discussed with the RN, no acute events overnight, blood pressure 118/71, heart rate of 56, afebrile, saturating normal on room air, CBC showing hemoglobin 8.5, hematocrit 36.8, WBC of 4.4, platelet count of 99, sodium 137, potassium 3.8, BUN of 18, creatinine 0.7, magnesium Lasix. Results of blood culture no growth after four days. Urine culture no growth. EGD reviewed, small less than 5 mm esophageal varices with scar in the lower 3rd of the esophagus. Patient with a bottle hypertensive gastropathy, status post biopsy, duodenum was normal during examination. Patient to be downgraded to the medical floor, continue banana bag, continue Protonix 40 mg IV b.i.d.. Plan for possible PEG tube placement. 09/03/2025 Patient was seen and examined at bedside. She has been advanced to GI soft bland diet which she is tolerating really well and having output in her ileostomy bag. As per surgeon, if she continues to tolerate diet, she may not require G-tube placement on discharge. Patient did not complain of any significant pain and seemed to be doing really well. Her cholecystostomy tube was removed but her splenic percutaneous tube is still in position and may require further IR intervention for repositioning due to persistent and mildly increased perisplenic fluid collection. She is receiving lactulose and her ammonia levels have gone down. Her acute renal failure continues to resolve and her vitals are also stable. No growth on urine and blood culture so far. We have shifted her from Protonix IV to p.o. as per GI recommendations. 09/04/2025 Patient was seen and examined at bedside in room 302. She has been tolerating GI soft bland diet, ileostomy output seems very high, liquid consistency and patient will be receiving fiber 3 times a day. Patient may require further IR intervention on Saturday for splenic drain reposition due to persistent and mildly increased perisplenic fluid collection. Vitals are stable, blood and urine culture shows no growth so far. 09/05/2025 Patient was seen and examined at bedside. She is tolerating GI soft bland diet, and her ileostomy output is high although liquid in consistency. We have decreased lactulose to b.i.d. from t.i.d. She continues on fiber 3 times a day as per surgery recommendations to bulk up the stool from the ileostomy in order to decrease the chances of further dehydration from high ileostomy output. Additionally, nodular swelling was appreciated in her right upper extremity which could be concerning for superficial venous thrombosis for which ultrasound Doppler of right upper extremity has been ordered. Patient is currently undergoing bladder training while being catheterized and we will proceed with Dueñas catheter removal as tolerated. 09/06/2025: Patient was seen and examined at bedside in room 302. She is tolerating GI soft bland diet and her ileostomy output has thicker consistency. Nurse reported that there was bright red blood in the ileostomy bag last night however this morning it was free from blood. Venous Doppler of the right upper extremity revealed deep vein thrombosis in right axillary vein and right cephalic vein, advice from Gastroenterology and Hematology was requested to start anticoagulation. Patient was started on Lovenox 1 mg/kg body weight as per Hematology recommendations. Patient will be continued on IV Protonix 40 mg b.i.d. 09/07/2025: Patient was seen and examined at bedside in room 302. Patient complained of generalized body pains however denied specific pain to the right a rm or in abdomen. She is tolerating GI soft bland it and had to 25 mL of total output from ileostomy bag last night as per the primary nurse. During my evaluation in the morning there was no blood observed in the ileostomy bag however around 10:30 a.m. nurse reported blood in the ileostomy bag. Dr. Gonzalez recommended to continue Lovenox and bridge with apixaban 10 mg for 5 days and then transition to apixaban 5 mg for 3 months. Surgery recommended to continue current medical management and await management of DVT for potential discharge. However we will try to connect with them regarding removal of splenic drain or repositioning through IR Services. 09/08/2025: Patient was examined at bedside in room 302. Patient's family mem bers were present during the evaluation of helped us translate. Her ileostomy bag was clear. Patient attendants voiced that patient was more anxious about noticing blood in her ileostomy bag. Patient's hemoglobin and hematocrit have remained stable. Ileostomy bag has been replaced due to leakage. Patient and the family members were educated on proper care for ileostomy bag by the wound care team and was also reinforced that she needs to be on anticoagulation for venous thrombosis for preventing dislodging of clot to lungs and causing fatal pulmonary embolism. Risks and benefits were explained to the patient that patient will need anticoagulation and her hemoglobin will be monitored regularly. Was also encouraged to keep her food intake high and prevent dehydration. We will connect with surgical team for management of splenic catheter drain. 09/09/2025: Patient was examined at the bedside in room 302. Patient had no acute events over night but continues to have difficulty falling asleep and anxiety from the medical complexity. Her hemoglobin is stable 9.2 today. Patient has an abdominal binder in place with ostomy ring for better seal. Patient will undergo CT abdomen for evaluation of removal of splenic catheter drain today. We discontinued her Duloxetine and started 7.5 mg of Mirtazapine at bedtime. 09/10/2025: Patient was examined at the bedside in room 302. Patient had no acut events overnight and reports she had a restful sleep last night. There was no reported leakage of blood into the ileostomy bag. Patient still has the ostomy ring and binder in place. Surgical team recommended considering variceal banding which could be the source of frequent bleeding into the ileostomy bag. They also recommended to keep the splenic catheter drain in place for continued perisplenic fluid. Nurse was notified to call GI team for further recommendations. We will continue to taper her midodrine in the subsequent days as she is maintaining good blood pressure. 09/11/2025: Patient was examined at bedside in room 302 with daughter at bedside. Patient reports that she still continues to have restless nights due to anxiety. There was no blood in the ileostomy bag noted over the last night however bag has to be replaced due to leakage. Currently pending GI recommendations for evaluation of varices for potential banding. Hemoglobin remained stable. Daughter expressed concerns about severe anxiety causing her to not eat, not ambulate, and unable to express fears due to the medical complexities involved. We ordered a tele psych consult for evaluation of severe anxiety and ordered Seroquel PRN for insomnia and we will continue mirtazapine 7.5 mg everyday. We will obtain recommendations from Gastroenterology on Saturday. In addition we reinforced to the daughter that patient's hemoglobin is being monitored on a daily basis and bleeding in ileostomy bag should not be a concern for anxiety and reiterated to explain this to her mother. Also enco uraged the patient to ambulate in the hallways and increase her dietary intake. 09/12/2025: Patient is seen in the room 302. Thid morning tele psych consultation was done. Gave following recommendations that patient is not suicidal homicidal or psychotic. Advised Remeron to [address] Sol called yesterday night to hold Eliquis for the possible EGD. So Eliquis held at least 3 days before the procedure. Changed ileostomy bag due to bag is leaking. General surgery recommends following- discontinue thickener, decrease lactulose to q.day, decrease Metamucil to b.i.d.. 09/13/2025: Patient is comfortably resting in her room. No acute events were reported overnight by the nursing staff. The patient denies melena, blood in the ileostomy bag, nausea, vomiting, or hematemesis. Patient is scheduled for EGD tomorrow. Eliquis was held starting yesterday to allow adequate time off anticoagulation before the procedure. The ileostomy no longer shows any bloody output. The patient reports tolerating diet well. The surgical team has evaluated her and advised that no further surgical intervention is required. She denies nausea, vomiting, or abdominal pain. Her ammonia level is 74, and she is receiving lactulose. Hemoglobin is stable at 9.1 g/dL. 09/14/2025: Patient is seen and evaluated in room number 302. She is scheduled for EGD today. She denies any new complaints, and the nursing staff reported no events overnight. Her hemoglobin remains stable at 9.1. Patient was comfortably sleeping in bed at the time of evaluation. 09/15/2025: Patient is seen and evaluated in room 302. EGD revealed small esophageal varices, a scar in the lower third of the esophagus, and portal hypertensive gastropathy. Eliquis 5 mg BID was initiated, and hemoglobin is ordered to be rechecked in 6 hours to monitor for any evidence of bleeding. CO2 is 19, indicating a bicarbonate deficit of 126; patient was given 50 mEq of IV sodium bicarbonate and along with oral sodium bicarbonate [address] scan of the abdomen and pelvis without contrast was ordered to evaluate the position of the splenic drain. REVIEW OF SYSTEMS CONSTITUTIONAL: malaise, tolerating diet well NEUROLOGICAL: Denies headache, motor weakness, sensory deficit, vertigo/spinning sensation, gait abnormalities, or tremors. ENT: No hearing loss, otalgia, otorrhea, rhinitis, rhinorrhea, hoarseness, or sore throat. CARDIOVASCULAR: Denies any exertional angina, dyspnea on exertion, orthopnea, paroxysmal nocturnal dyspnea, palpitations, life-threatening arrhythmias, claudication. PULMONARY: Denies any shortness of breath, cough, phlegm/sputum, hemoptysis, pleuritic chest pain. SLEEP: Denies morning headaches, daytime somnolence or napping. Denies difficulty falling asleep, staying asleep, waking from sleep. Denies knowledge of snoring. GASTROINTESTINAL: Denies nausea, vomiting, abdominal pain, melena, coffee ground emesis PHYSICAL EXAM GENERAL APPEARANCE: The patient is awake, alert, and oriented, answering to all questions with very mild pain around her drains. NEUROLOGICAL: Neurological examination is non focal with spontaneous movement of upper and lower extremities HEENT: Face is symmetric. Pupils are equal and reactive. Extraocular movements are intact. NECK: Supple. No thyromegaly. No submental, submandibular, pre-/postauricular, occipital or supraclavicular lymphadenopathy. CHEST: Normal chest expansion. No Telemetry. LUNGS: Absence of any rales, rhonchi or any wheezing. CARDIOVASCULAR: Regular. S1 and S2 normal. No appreciable rubs, murmurs or gallops. ABDOMEN: no rebound noted, there is perisplenic abdominal drain noted with ileostomy bag, ostomy ring and abdominal binder. : Deferred. Currently catheterized. EXTREMITIES: Swelling in right upper extremity. Mild ecchymosis. Vital Signs (last 8hr) Date Time Temp Pulse Resp B/P (MAP) Pulse Ox O2 Delivery O2 Flow Rate FiO2 09/15/25 12:04 98.2 98 18 127/74 98 Room Air 09/15/25 08:10 97.9 92 18 109/58 95 Room Air LABS: Laboratory: Test 09/15/25 11:05 09/15/25 08:49 09/15/25 04:33 09/14/25 04:27 Range/Units Whole Blood Glucose 109 70-110 MG/DL Lactic Acid Level 2.0 0.8-2.5 mmol/L C-Reactive Protein, Quantitative 4.60 H 0.5-3.0 mg/L White Blood Count 4.2 L 4.8-10.8 K/uL Red Blood Count 2.71 L 4.00-5.50 MIL/uL Hemoglobin 8.4 L 12.0-16.0 g/dL Hematocrit 26.7 L 36-48 % Mean Corpuscular Volume 98.5 79-99 fL Mean Corpuscular Hemoglobin 31.0 27.0-33.0 pg Mean Corpuscular Hemoglobin Concent 31.5 L 32.0-36.0 g/dL Red Cell Distribution Width 19.5 H 11.0-15.5 % Platelet Count 204 130-400 K/uL Mean Platelet Volume 9.6 7.5-10.5 fL Immature Granulocyte % (Auto) 0.5 0-1 % Neutrophils (%) (Auto) 52.1 40.0-77.0 % Lymphocytes (%) (Auto) 32.0 21.0-51.0 % Monocytes (%) (Auto) 7.8 3.0-13.0 % Eosinophils (%) (Auto) 6.9 0.0-8.0 % Basophils (%) (Auto) 0.7 0.0-5.0 % Neutrophils # (Auto) 2.2 1.8-7.7 K/uL Lymphocytes # (Auto) 1.4 1.0-4.8 K/uL Monocytes # (Auto) 0.3 0.1-1.0 K/uL Eosinophils # (Auto) 0.29 0.00-0.70 K/uL Basophils # (Auto) 0.03 0.00-0.20 K/uL Absolute Immature Granulocyte (auto 0.02 0-1 K/uL Nucleated Red Blood Cells 0.0 0.0-0.19 % Sodium Level 133 L 136-145 mmol/L Potassium Level 3.7 3.5-5.1 mmol/L Chloride Level 106 101-111 mmol/L Carbon Dioxide Level 19 L 21-32 mmol/L Blood Urea Nitrogen 17 7-18 mg/dL Creatinine 1.0 0.5-1.0 mg/dL Glomerular Filtration Rate Calc 66 >90 mL/min Random Glucose 101 70-105 mg/dL Total Calcium 8.4 L 8.5-10.1 mg/dL Prothrombin Time 12.4 H 9.6-11.6 SEC Prothromb Time International Ratio 1.19 H 0.85-1.15 Magnesium Level 2.00 1.80-2.40 mg/dL Current Medications Medications (Trade) Dose Ordered Sig/Gregory Route PRN Reason Start Time Stop Time Status Last Admin Dose Admin Acetaminophen (TYLenol 325MG TAB) 650 mg Q6H PRN PO MILD PAIN (1-3) 08/29/25 10:00 09/28/25 09:59 09/15/25 00:09 650 MG Acetaminophen/ Hydrocodone Bitart (NORco 5/325MG) 2 tab Q4H PRN PO SEVERE PAIN (7-10) 09/08/25 09:30 09/13/25 09:29 DC 09/13/25 00:59 2 TAB Albuterol (DUOneb) 1 udvial Q6H PRN IH SHORTNESS OF BREATH 08/29/25 10:00 09/28/25 09:59 Apixaban (EliquIS) 5 mg BID PO 09/15/25 09:00 10/15/25 08:59 09/15/25 08:03 5 MG Apixaban (EliquIS) 5 mg BID PO 09/08/25 21:00 09/13/25 08:14 DC 09/11/25 20:32 5 MG Apixaban (EliquIS) 10 mg BID PO 09/07/25 22:00 09/08/25 01:42 DC 09/07/25 22:06 10 MG Apixaban (EliquIS) 10 mg BID PO 09/08/25 09:30 09/08/25 10:13 DC Atorvastatin Calcium (LIPItor 10MG) 5 mg HS PO 09/05/25 21:00 10/05/25 20:59 09/14/25 21:12 5 MG Calcium Gluconate (Calcium Gluc 1gm Vial) 1 gm ONCE IV 08/29/25 09:30 08/29/25 09:23 DC Cyclobenzaprine HCl (Cyclobenzaprine HCl) 5 mg TID PRN PO muscle spasms 09/05/25 11:00 10/05/25 10:59 Dextrose (D50w) 50 ml AD PRN IV HYPOGLYCEMIA PROTOCOL 08/29/25 10:00 09/28/25 09:59 Dextrose/Sodium Chloride 1,000 ml @ 0 mls/hr AD IV 08/29/25 12:30 08/29/25 16:05 DC Duloxetine HCl (CymbALTA 30 mg CAP) 30 mg BID PO 09/03/25 21:00 09/09/25 11:10 DC 09/09/25 10:37 30 MG Enoxaparin Sodium (Lovenox (Pharmacy To Dose)) 1 unit Q12H SQ 09/06/25 13:30 09/06/25 13:21 DC Enoxaparin Sodium (Lovenox 60mg) 60 mg Q12H SQ 09/06/25 13:30 09/07/25 15:03 DC 09/07/25 14:29 60 MG Folic Acid (FOLic ACID 1 MG TABLET) 1 mg DAILY PO 09/08/25 09:00 10/08/25 08:59 09/15/25 08:03 1 MG Glucagon (Glucagon 1mg Kit) 1 mg AD PRN IM HYPOGLYCEMIA PROTOCOL 08/29/25 10:00 09/28/25 09:59 Home Med (Home Medication) (Medroxyprogesterone Acetate (Provera) 1 TAB) DAILY PO 09/06/25 09:00 10/06/25 08:59 Insulin Human Regular (humuLIN R 100 UNIT/ML 3ML) 5 unit ONCE IV 08/29/25 09:30 08/29/25 09:25 DC Insulin Human Regular (humuLIN R 100 UNIT/ML 3ML) INSULIN SLIDING SCAL... ACHS SQ 08/29/25 11:30 09/28/25 11:29 09/14/25 17:52 2 UNIT Insulin Human Regular 100 unit/ Sodium Chloride 101 ml @ 0 mls/hr PROTOCOL IV 08/29/25 12:30 08/29/25 16:05 DC Lactated Ringer's 1,000 ml @ 100 mls/hr Q10H IV 09/06/25 00:00 09/06/25 18:44 DC 09/06/25 08:35 100 MLS/HR Lactulose (Constulose 20gm/ 30ml Udcup) 20 gm BID PO 09/05/25 21:00 09/12/25 16:49 DC 09/11/25 08:16 20 GM Lactulose (Constulose 20gm/ 30ml Udcup) 20 gm DAILY PO 09/12/25 17:00 09/12/25 17:00 DC Lactulose (Constulose 20gm/ 30ml Udcup) 20 gm TID PO 09/01/25 14:00 09/05/25 10:44 DC 09/05/25 08:06 20 GM Magnesium Sulfate 50 ml @ 0 mls/hr PROTOCOL IV 08/29/25 12:30 08/29/25 16:05 DC Magnesium Sulfate 50 ml @ 0 mls/hr PROTOCOL IV 08/30/25 10:00 09/29/25 09:59 09/13/25 05:22 25 MLS/HR Magnesium Sulfate 50 ml @ 0 mls/hr PROTOCOL IV 09/02/25 13:30 09/02/25 13:04 DC Magnesium Sulfate 50 ml @ 0 mls/hr PROTOCOL IV 09/03/25 08:00 09/03/25 07:43 DC Meropenem (Merrem 500mg) 500 mg Q24H IVPB 08/29/25 10:00 08/31/25 09:59 DC 08/30/25 09:46 500 MG Meropenem (Merrem 500mg) 500 mg Q24H IVPB 08/31/25 23:30 09/10/25 02:29 DC 09/09/25 23:40 500 MG Midodrine (PROAMatine 5 MG TABLET) 5 mg BID PO 09/10/25 09:00 09/11/25 07:21 DC 09/10/25 21:42 5 MG Midodrine (PROAMatine 5 MG TABLET) 5 mg DAILY20 PO 09/11/25 20:00 09/12/25 09:00 DC 09/11/25 20:31 5 MG Midodrine (PROAMatine 5 MG TABLET) 5 mg TID PO 09/08/25 21:00 09/10/25 08:05 DC 09/09/25 15:24 5 MG Midodrine (PROAMatine 5 MG TABLET) 10 mg BID PO 09/01/25 09:00 08/31/25 18:36 DC Midodrine (PROAMatine 5 MG TABLET) 10 mg TID PO 09/01/25 09:00 09/08/25 17:20 DC 09/08/25 16:16 10 MG Mirtazapine (REMeron 15 MG TAB) 7.5 mg HS PO 09/09/25 21:00 09/12/25 11:05 DC 09/11/25 20:31 7.5 MG Mirtazapine (REMeron 15 MG TAB) 15 mg HS PO 09/12/25 21:00 10/12/25 20:59 09/14/25 21:13 15 MG Morphine Sulfate (morPHINE 2MG SYG) 0.5 mg Q4H PRN IVP SEVERE PAIN (7-10) 09/07/25 13:30 09/08/25 09:11 DC 09/08/25 04:27 0.5 MG Morphine Sulfate (morPHINE 2MG SYG) 0.5 mg Q4H PRN IVP SEVERE PAIN (7-10) 09/08/25 18:00 09/09/25 11:10 DC Morphine Sulfate (morPHINE 2MG SYG) 1 mg Q4H PRN IVP SEVERE PAIN (7-10) 09/05/25 13:30 09/07/25 11:35 DC 09/06/25 23:40 1 MG Morphine Sulfate (morPHINE 2MG SYG) 2 mg Q4H PRN IVP SEVERE PAIN (7-10) 09/01/25 05:30 09/05/25 13:19 DC 09/05/25 04:28 2 MG Norepinephrine Bitartrate 32 mg/ Sodium Chloride 250 ml @ 0 mls/hr Q0M STAT IV 08/29/25 21:01 08/29/25 21:07 DC 08/29/25 21:13 0 MLS/HR Octreotide Acetate 1250 mcg/ Sodium Chloride 250 ml @ 0 mls/hr PROTOCOL IV 08/29/25 08:30 09/01/25 10:32 DC 08/31/25 10:18 5 MLS/HR Ondansetron HCl (zoFRAN 4MG INJ) 4 mg Q6H PRN IVP NAUSEA/VOMITING 08/29/25 09:30 09/28/25 09:29 09/09/25 10:42 4 MG Pantoprazole Sodium (PROTonix 40MG INJ) 40 mg BID IVP 09/01/25 21:00 09/03/25 14:32 DC 09/03/25 09:16 40 MG Pantoprazole Sodium (PROTonix 40MG INJ) 40 mg BID IVP 09/06/25 09:00 10/06/25 08:59 09/15/25 08:03 40 MG Pantoprazole Sodium (PROTonix 40MG TAB) 40 mg DAILY PO 09/04/25 09:00 09/06/25 00:03 DC 09/05/25 08:06 40 MG Pantoprazole Sodium 80 mg/ Sodium Chloride 100 ml @ 10 mls/hr Q10H IV 08/29/25 08:30 09/01/25 10:32 DC 09/01/25 05:50 10 MLS/HR Pharmacy Profile Note (Pharmacy Communication) 1 each ONCE MISC 08/29/25 09:30 08/29/25 09:35 DC Pharmacy Profile Note (Pharmacy Communication) 1 each ONCE MISC 08/31/25 23:30 08/31/25 23:17 DC Potassium Chloride 100 ml @ 50 mls/hr AD PRN IV POTASSIUM PROTOCOL 08/29/25 12:30 09/28/25 12:29 09/14/25 17:44 50 MLS/HR Psyllium Hydrophilic Mucilloid (Metamucil) 1 tbs BID PO 09/12/25 17:00 09/12/25 18:00 DC 09/12/25 17:19 1 TBS Psyllium Hydrophilic Mucilloid (Metamucil) 1 tbs TID PO 09/04/25 14:00 09/12/25 16:49 DC 09/11/25 20:32 1 TBS Quetiapine Fumarate (SEROquel 25 mg TAB) 25 mg ONCE PRN PO INSOMNIA 09/11/25 21:00 09/13/25 08:14 DC 09/13/25 00:58 25 MG Sodium Bicarbonate 150 meq/Dextrose 1,150 ml @ 125 mls/hr Q9H12M IVP 08/29/25 10:00 08/30/25 10:12 DC 08/30/25 08:07 125 MLS/HR Sodium Bicarbonate (Sodium Bicarbonate) 1,300 mg QID PO 09/10/25 17:00 10/10/25 16:59 09/15/25 12:12 1,300 MG Sodium Bicarbonate (Sodium Bicarbonate) 1,300 mg TID PO 09/07/25 14:00 09/08/25 18:00 DC 09/08/25 16:15 1,300 MG Sodium Bicarbonate (Sodium Bicarbonate) 1,300 mg TID PO 09/09/25 09:00 09/10/25 12:00 DC 09/10/25 10:31 1,300 MG Sodium Chloride 250 ml @ 0 mls/hr AD IV 08/29/25 17:30 09/28/25 17:29 Sodium Chloride 1,000 ml @ 0 mls/hr Q0M IV 08/29/25 16:00 08/29/25 16:03 DC Sodium Chloride 1,000 ml @ 0 mls/hr Q0M IV 08/29/25 16:00 09/01/25 08:01 DC 08/29/25 16:10 500 MLS/HR Sodium Chloride 1,000 ml @ 125 mls/hr Q8H IV 08/29/25 09:30 08/29/25 09:57 DC Sodium Chloride 1,000 ml @ 150 mls/hr Q6H40M IV 08/29/25 18:30 09/01/25 09:29 DC 08/31/25 16:16 150 MLS/HR Sodium Chloride 1,000 ml @ 200 mls/hr PROTOCOL IV 08/29/25 12:30 08/29/25 16:05 DC Sodium Chloride 1,000 ml @ 999 mls/hr Q1H1M IV 08/29/25 09:30 08/29/25 09:06 DC Thiamine HCl (Vitamin B-1) 200 mg Q12H IVP 08/29/25 09:30 09/02/25 09:30 DC 09/02/25 08:56 200 MG Vitamin B Complex (Vitamin B-12) 1,000 mcg DAILY PO 09/08/25 09:00 10/08/25 08:59 09/15/25 08:03 1,000 MCG DIAGNOSTICS / RADIOLOGY: [ ] ASSESSMENT: Acute upper GI bleeding- Hematemesis, dark output from ileostomy bag, POA, Improving Anxiety Acute DVT of right axillary vein and right cephalic vein High output from ileostomy bag, not POA Hemorrhagic shock versus hypovolemic shock, POA, Resolved Normocytic normochromic anemia, POA Non anion gap metabolic acidosis Generalized anxiety and Insomnia, POA Hypovolemic hypochloremic hyponatremia, POA, Resolved Severe hyperkalemia, POA, Resolved Hypokalemia, Not POA, resolved Hypophosphatemia, Not POA High anion gap metabolic acidosis, POA, Resolved Hyperammonemia, POA, Improving Lactic acidosis, POA, Resolved Hyperphosphatemia, POA, Resolved Acute renal failure - Prerenal Acute Kidney Injury, POA, resolved Starvation Ketoacidosis, POA Rule out occult sepsis, POA Recent extended hospitalization in [facility], 07/20/2025- 08/25/2025 for sepsis, acute abdomen, POA Severe Dehydration, POA, Improving History of esophageal varices, POA Acute Decompensated liver cirrhosis, POA Hx of acute cholecystitis, s/p cholecystostomy tube placement on 08/02/2025. Perisplenic abscess, s/p CT-guided drainage placement on 08/09/2025. 2.7 x 2.2 x 5.1 cm infrasplenic collection History of gastritis, POA Hx of Generalized peritonitis with ESBL E coli infection, POA Moderate Protein calorie malnutrition POA History of bilious peritonitis with small colonic anastomosis perforation s/p diagnostic laparoscopy, abdominal washout, ileostomy creation by Dr. Gann, 07/21/2025 Hx of DM II, POA Recent colovesical fistula repair with sigmoid colon resection and anastomosis on 07/09/2022 PLAN: High output from ileostomy * Continue fiber 3 times a day. Secretions have thickened. * Monitor for any signs of dehydration including vitals and BMP. * Lactulose decreased to b.i.d. from t.i.d.. * Ostomy ring and abdominal binder in place for better seal. * Monitor input and output including ileostomy bag. * Ileostomy bag change due to leakage * Surgery discontinued thickener * CO2 is 19 and bicarb deficit is 126, patient was given 50 meq of sodium bicarb ellie in 50 ml NS in a period of one hour Acute DVT of right axillary vein and right cephalic vein * Patient developed nodular, tender swelling along the venous distribution in right upper extremity * Venous doppler on 09/05/25 revealed acute DVT of right axillary vein and right cephalic vein * Hematology recommended to bridge Lovenox 60 mg Q12 with Apixaban 10 mg BID for 5 days followed by Apixaban 5 mg bid for 3 months * We changed the apixaban to 5 mg b.i.d. * Gastroenterology cleared patient for anticoagulation * Eliquis was started today and will monitor Hemoglobin in 6 hours to check for bleeding Non-Anion gap metabolic acidosis - resolved * Patient's bicarb is 19, sodium 133, chloride 106 * ordered urinary electrolytes to check for urine anion gap * CO2 is 19 and bicarb deficit is 126, patient was given 50 meq of sodium bicarbonate in 50 ml NS in a period of one hour * We will monitor labs tomorrow a.m. Acute upper GI bleeding- Hematemesis, dark output from ileostomy bag * Recent EGD showed Small esophageal varices, scar in the lower 3rd of esophagus and portal gastropathy * Previous EGD was done which showed less than 5 mm esophageal varices with scar in the lower 3rd of the esophagus, hypertensive gastropathy, status post bi opsy, duodenum was normal during examination. * Patient received Sandostatin and Protonix drip on presentation which were subsequently stopped . * Patient resumed on IV Protonix 40 mg b.i.d. * Diet advanced to regular diet * Monitor for bleeding, we will obtain recommendations from GI for possible variceal banding * Ileostomy output no longer shows any bloody output. * DC thickener Normocytic normochromic anemia, iron deficiency * Patient's hemoglobin is 8.4 * Anemia of chronic disease versus iron deficiency versus blood loss. * Iron 31, TIBC 155, % sat 20 * Keep hemoglobin above 7 Acute renal failure, Prerenal Acute Kidney Injury, Dehydration, resolved * On Presentation, patient's creatinine was 5, BUN 80. * FENa <0.2, Stone <20 - Urine microscopy showed Hyaline and granular casts * Patient was started on NaCl 150mls/hr which was stopped. * Bicarb drip was discontinued as per nephrology. * patient is successfully weaned off Levophed * Patient received emergent hemodialysis session for elevated renal parameters as well as electrolyte derangements including Hyperkalemia and acidosis. * Her creatinine and BUN have improved to 1 and 17 respectively (09/15) * Transfuse as needed to keep Hb above 7 (Hb=9.0, 08/31/25) * Monitor input and output. * We will repeat a.m. labs and follow up with Nephrology recommendations. Generalized anxiety and Insomnia * Patient very anxious about her health outcomes from the medical complexity * Patient is worried after noticing blood in the ileostomy bag while continuing anticoagulation for DVT * Patient reassured of close monitoring and risk vs benefits on continuing anticoagulation * Continue Seroquel 25 mg PRN * Tele psych consultation recommended - Remeron increased to 15 ATTESTATION BY PHYSICIAN I have seen and examined the patient. I reviewed the documentation, medical decision making, and treatment plan as noted by the resident provider above. I agree with the findings and plan of care. Miguel Conley MD, LAKSHMI MD Sep 15, 2025 13:25
--- NOTE | 2025-09-15 13:55 | NUR ---
RE: LLQ DRAIN REMOVAL CT SCAN OF LLQ PIGTAIL CATHETER FOR POSSIBLE REMOVAL ORDERED BY DR Millie TORRE. IMAGES TAKEN AND REVIEWED BY DR Marina FIORE. NO FLUID SEEN AND APPROVED FOR REMOVAL. LLQ PIGTAIL CATHETER REMOVED WITH STERILE TECHNIQUE IN THE CT ROOM. PATIENT TOLERATED PROCEDURE WELL. DRESSING APPLIED AND DRY/INTACT. REPORT GIVEN TO BECKY KRAFT AND PATIENT TRANSPORTED TO [facility] VIA W/C.
--- NOTE | 2025-09-15 14:41 | PN ---
NEPHROLOGY NOTE SUBJECTIVE: This patient has multiple problems including renal dysfunction recently required dialysis. The patient had EGD done, electrolyte problem. The patient also has anemia and multiple other comorbidities. No other associated findings. No other aggravating or relieving factor. The patient is generally weak. The patient has acute GI bleeding, DVT of the right axillary vein, high output from ileostomy, anemia, acidosis, and other electrolyte problems. We will follow up for all this. PHYSICAL EXAMINATION: GENERAL: Pale. No other distress or deformities. Lying in bed. VITAL SIGNS: Blood pressure is 117/65, pulse 91, respiratory rate is 18, afebrile. HEENT: Head is atraumatic, normocephalic. Pupils are round and reactive to light. Sclerae are anicteric. Conjunctivae not pale. Oral mucosa is not dry. NECK: Supple. Without masses or bruits. Thyroid is palpable. Neck has no bruits. CHEST: Shows equal percussion note being resonant in all areas. CARDIAC: Regular rhythm. No rub. No S3, S4. BACK: Nontender. No back deformities. LABORATORY DATA: Labs have been reviewed. Low hemoglobin of 9.1. Imaging studies are reviewed. Low sodium has been present and creatinine is 1. PROBLEMS: * Recent renal failure requiring dialysis. * The patient had underlying anemia. * Electrolyte problems. * Gastrointestinal bleeding. * Anxiety. * Deep vein thrombosis. * High output ileostomy. * Previous hemorrhagic shock. * Acidosis. PLAN: The patient is planned for EGD. Continued monitoring. The patient has previous cholecystostomy drain and previous splenic abscess drainage. We will follow up on renal function, electrolytes and overall ____. I have discussed with other team members. We will continue to monitor and follow closely. TID: [id number] RECEIPT: [id number]
--- NOTE | 2025-09-15 14:53 | HMCIMG ---
EXAM: CT Abdomen and Pelvis Without IV contrast CLINICAL HISTORY: splenic abscess drain check TECHNIQUE: Axial computed tomography images of the abdomen and pelvis without intravenous contrast. CONTRAST: No IV contrast. COMPARISON: August 29, 2025 FINDINGS: LUNG BASES: The lung bases appear clear. No pleural effusions are seen. LIVER: Liver contour is nodular suggest underlying cirrhosis. GALLBLADDER AND BILE DUCTS: The gallbladder appears distended with calcification of the wall of the gallbladder.. No radioopaque gallstones are seen. No biliary ductal dilatation is evident. PANCREAS: Unremarkable. SPLEEN: Unremarkable. ADRENAL GLANDS: Unremarkable. KIDNEYS, URETERS, AND BLADDER: The kidneys appear within normal limits. There is no hydronephrosis or hydroureter. No urinary calculi are seen. STOMACH AND BOWEL: Unremarkable appearance of the stomach and bowel. No evidence of bowel obstruction. No evidence suggesting enteritis or colitis. There is a right lower quadrant ostomy noted. APPENDIX: No evidence of acute appendicitis on CT examination. PERITONEUM: Slight haziness within the mesentery is noted which is new compared to the prior. This is most appreciated below the level of the superior mesenteric vein. Redemonstration of a percutaneous pigtail catheter just below the spleen.. Fluid collection 1.8 x 2 cm has decreased compared to the prior. No free air. LYMPH NODES: No lymphadenopathy is evident. REPRODUCTIVE: Unremarkable as visualized. VASCULATURE: No evidence of abdominal aortic aneurysm. BONES: No aggressive appearing osseous lesion. No acute osseous pathology evident. IMPRESSION: 1. 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 2. Pigtail catheter is noted within a fluid collection along the left retroperitoneum 2 x 1.8 cm which has decreased in size. 3. Possible porcelain gallbladder. /Reading
--- NOTE | 2025-09-15 15:46 | PN ---
GASTROENTEROLOGY PROGRESS NOTE Date of Visit: Sep 15, 2025 Time of Visit: 15:46 Events / Notes: No acute events overnight. Patient underwent EGD and was found to have small esophageal varices, scar in the lower 3rd of the esophagus, and portal hypertensive gastropathy. Normal examined duodenum. She has bleeding in ostomy. Repeat EGD without stigmata of bleeding. Review of Systems: CONSTITUTIONAL: No malaise or change in sensation of wellbeing. ENMT: No rhinorrhea, otorrhea, sinus pain, ear ache. CARDIOVASCULAR: No angina, palpitations, orthopnea or paroxysmal dyspnea. RESPIRATORY: No SOB. GASTROINTESTINAL: No abdominal pain, nausea, vomiting, diarrhea, hematemesis, melena or change in the patient's habitual bowel movements consistency/number. GENITOURINARY: No dysuria, hematuria or change in bladder continence. MUSCULOSKELETAL: No new muscle pain or decrease in muscular strength. No new joint swelling, redness or tenderness. SKIN: No new rash. Physical Exam: GEN: Awake, alert, oriented in person, time and place, and in no acute distress. HEENT: No rhinorrhea. Oral mucosa is moist. CHEST: Lung auscultation revealed normal breath sounds bilaterally. CARDIAC:Heart sounds are regular. ABD: Soft, non-tender and not distended. No peritoneal signs on palpation. Normal bowel sounds. Ileostomy in place with watery output. EXT: No cyanosis or clubbing. No edema. SKIN: Intact. No rashes. NEURO: Alert and oriented to name, place and person.No focal motor deficits. Normal speech. Vital Signs (last 8hr) Date Time Temp Pulse Resp B/P (MAP) Pulse Ox O2 Delivery O2 Flow Rate FiO2 09/15/25 15:41 98.8 101 18 130/70 100 Room Air 09/15/25 12:04 98.2 98 18 127/74 98 Room Air 09/15/25 08:10 97.9 92 18 109/58 95 Room Air 09/15/25 08:03 95 Room Air* 0 21 Laboratory: [ ] Laboratory: Test 09/15/25 15:27 09/15/25 08:49 09/15/25 04:33 09/14/25 04:27 Range/Units Whole Blood Glucose 224 #H 70-110 MG/DL Lactic Acid Level 2.0 0.8-2.5 mmol/L C-Reactive Protein, Quantitative 4.60 H 0.5-3.0 mg/L White Blood Count 4.2 L 4.8-10.8 K/uL Red Blood Count 2.71 L 4.00-5.50 MIL/uL Hemoglobin 8.4 L 12.0-16.0 g/dL Hematocrit 26.7 L 36-48 % Mean Corpuscular Volume 98.5 79-99 fL Mean Corpuscular Hemoglobin 31.0 27.0-33.0 pg Mean Corpuscular Hemoglobin Concent 31.5 L 32.0-36.0 g/dL Red Cell Distribution Width 19.5 H 11.0-15.5 % Platelet Count 204 130-400 K/uL Mean Platelet Volume 9.6 7.5-10.5 fL Immature Granulocyte % (Auto) 0.5 0-1 % Neutrophils (%) (Auto) 52.1 40.0-77.0 % Lymphocytes (%) (Auto) 32.0 21.0-51.0 % Monocytes (%) (Auto) 7.8 3.0-13.0 % Eosinophils (%) (Auto) 6.9 0.0-8.0 % Basophils (%) (Auto) 0.7 0.0-5.0 % Neutrophils # (Auto) 2.2 1.8-7.7 K/uL Lymphocytes # (Auto) 1.4 1.0-4.8 K/uL Monocytes # (Auto) 0.3 0.1-1.0 K/uL Eosinophils # (Auto) 0.29 0.00-0.70 K/uL Basophils # (Auto) 0.03 0.00-0.20 K/uL Absolute Immature Granulocyte (auto 0.02 0-1 K/uL Nucleated Red Blood Cells 0.0 0.0-0.19 % Sodium Level 133 L 136-145 mmol/L Potassium Level 3.7 3.5-5.1 mmol/L Chloride Level 106 101-111 mmol/L Carbon Dioxide Level 19 L 21-32 mmol/L Blood Urea Nitrogen 17 7-18 mg/dL Creatinine 1.0 0.5-1.0 mg/dL Glomerular Filtration Rate Calc 66 >90 mL/min Random Glucose 101 70-105 mg/dL Total Calcium 8.4 L 8.5-10.1 mg/dL Prothrombin Time 12.4 H 9.6-11.6 SEC Prothromb Time International Ratio 1.19 H 0.85-1.15 Magnesium Level 2.00 1.80-2.40 mg/dL Current Medications Medications (Trade) Dose Ordered Sig/Gregory Route PRN Reason Start Time Stop Time Status Last Admin Dose Admin Acetaminophen (TYLenol 325MG TAB) 650 mg Q6H PRN PO MILD PAIN (1-3) 08/29/25 10:00 09/28/25 09:59 09/15/25 00:09 650 MG Acetaminophen/ Hydrocodone Bitart (NORco 5/325MG) 2 tab Q4H PRN PO SEVERE PAIN (7-10) 09/08/25 09:30 09/13/25 09:29 DC 09/13/25 00:59 2 TAB Albuterol (DUOneb) 1 udvial Q6H PRN IH SHORTNESS OF BREATH 08/29/25 10:00 09/28/25 09:59 Apixaban (EliquIS) 5 mg BID PO 09/15/25 09:00 10/15/25 08:59 09/15/25 08:03 5 MG Apixaban (EliquIS) 5 mg BID PO 09/08/25 21:00 09/13/25 08:14 DC 09/11/25 20:32 5 MG Apixaban (EliquIS) 10 mg BID PO 09/07/25 22:00 09/08/25 01:42 DC 09/07/25 22:06 10 MG Apixaban (EliquIS) 10 mg BID PO 09/08/25 09:30 09/08/25 10:13 DC Atorvastatin Calcium (LIPItor 10MG) 5 mg HS PO 09/05/25 21:00 10/05/25 20:59 09/14/25 21:12 5 MG Calcium Gluconate (Calcium Gluc 1gm Vial) 1 gm ONCE IV 08/29/25 09:30 08/29/25 09:23 DC Cyclobenzaprine HCl (Cyclobenzaprine HCl) 5 mg TID PRN PO muscle spasms 09/05/25 11:00 10/05/25 10:59 Dextrose (D50w) 50 ml AD PRN IV HYPOGLYCEMIA PROTOCOL 08/29/25 10:00 09/28/25 09:59 Dextrose/Sodium Chloride 1,000 ml @ 0 mls/hr AD IV 10/26/25 12:30 08/29/25 16:05 DC Duloxetine HCl (CymbALTA 30 mg CAP) 30 mg BID PO 09/03/25 21:00 09/09/25 11:10 DC 09/09/25 10:37 30 MG Enoxaparin Sodium (Lovenox (Pharmacy To Dose)) 1 unit Q12H SQ 09/06/25 13:30 09/06/25 13:21 DC Enoxaparin Sodium (Lovenox 60mg) 60 mg Q12H SQ 09/06/25 13:30 09/07/25 15:03 DC 09/07/25 14:29 60 MG Folic Acid (FOLic ACID 1 MG TABLET) 1 mg DAILY PO 09/08/25 09:00 10/08/25 08:59 09/15/25 08:03 1 MG Glucagon (Glucagon 1mg Kit) 1 mg AD PRN IM HYPOGLYCEMIA PROTOCOL 08/29/25 10:00 09/28/25 09:59 Home Med (Home Medication) (Medroxyprogesterone Acetate (Provera) 1 TAB) DAILY PO 09/06/25 09:00 10/06/25 08:59 Insulin Human Regular (humuLIN R 100 UNIT/ML 3ML) 5 unit ONCE IV 08/29/25 09:30 08/29/25 09:25 DC Insulin Human Regular (humuLIN R 100 UNIT/ML 3ML) INSULIN SLIDING SCAL... ACHS SQ 08/29/25 11:30 09/28/25 11:29 09/14/25 17:52 2 UNIT Insulin Human Regular 100 unit/ Sodium Chloride 101 ml @ 0 mls/hr PROTOCOL IV 08/29/25 12:30 08/29/25 16:05 DC Lactated Ringer's 1,000 ml @ 100 mls/hr Q10H IV 09/06/25 00:00 09/06/25 18:44 DC 09/06/25 08:35 100 MLS/HR Lactulose (Constulose 20gm/ 30ml Udcup) 20 gm BID PO 09/05/25 21:00 09/12/25 16:49 DC 09/11/25 08:16 20 GM Lactulose (Constulose 20gm/ 30ml Udcup) 20 gm DAILY PO 09/12/25 17:00 09/12/25 17:00 DC Lactulose (Constulose 20gm/ 30ml Udcup) 20 gm TID PO 09/01/25 14:00 09/05/25 10:44 DC 09/05/25 08:06 20 GM Magnesium Sulfate 50 ml @ 0 mls/hr PROTOCOL IV 08/29/25 12:30 08/29/25 16:05 DC Magnesium Sulfate 50 ml @ 0 mls/hr PROTOCOL IV 08/30/25 10:00 09/29/25 09:59 09/13/25 05:22 25 MLS/HR Magnesium Sulfate 50 ml @ 0 mls/hr PROTOCOL IV 09/02/25 13:30 09/02/25 13:04 DC Magnesium Sulfate 50 ml @ 0 mls/hr PROTOCOL IV 09/03/25 08:00 09/03/25 07:43 DC Meropenem (Merrem 500mg) 500 mg Q24H IVPB 08/29/25 10:00 08/31/25 09:59 DC 08/30/25 09:46 500 MG Meropenem (Merrem 500mg) 500 mg Q24H IVPB 08/31/25 23:30 09/10/25 02:29 DC 09/09/25 23:40 500 MG Midodrine (PROAMatine 5 MG TABLET) 5 mg BID PO 09/10/25 09:00 09/11/25 07:21 DC 09/10/25 21:42 5 MG Midodrine (PROAMatine 5 MG TABLET) 5 mg DAILY20 PO 09/11/25 20:00 09/12/25 09:00 DC 09/11/25 20:31 5 MG Midodrine (PROAMatine 5 MG TABLET) 5 mg TID PO 09/08/25 21:00 09/10/25 08:05 DC 09/09/25 15:24 5 MG Midodrine (PROAMatine 5 MG TABLET) 10 mg BID PO 09/01/25 09:00 08/31/25 18:36 DC Midodrine (PROAMatine 5 MG TABLET) 10 mg TID PO 09/01/25 09:00 09/08/25 17:20 DC 09/08/25 16:16 10 MG Mirtazapine (REMeron 15 MG TAB) 7.5 mg HS PO 09/09/25 21:00 09/12/25 11:05 DC 09/11/25 20:31 7.5 MG Mirtazapine (REMeron 15 MG TAB) 15 mg HS PO 09/12/25 21:00 10/12/25 20:59 09/14/25 21:13 15 MG Morphine Sulfate (morPHINE 2MG SYG) 0.5 mg Q4H PRN IVP SEVERE PAIN (7-10) 09/07/25 13:30 09/08/25 09:11 DC 09/08/25 04:27 0.5 MG Morphine Sulfate (morPHINE 2MG SYG) 0.5 mg Q4H PRN IVP SEVERE PAIN (7-10) 09/08/25 18:00 09/09/25 11:10 DC Morphine Sulfate (morPHINE 2MG SYG) 1 mg Q4H PRN IVP SEVERE PAIN (7-10) 09/05/25 13:30 09/07/25 11:35 DC 09/06/25 23:40 1 MG Morphine Sulfate (morPHINE 2MG SYG) 2 mg Q4H PRN IVP SEVERE PAIN (7-10) 09/01/25 05:30 09/05/25 13:19 DC 09/05/25 04:28 2 MG Norepinephrine Bitartrate 32 mg/ Sodium Chloride 250 ml @ 0 mls/hr Q0M STAT IV 08/29/25 21:01 08/29/25 21:07 DC 08/29/25 21:13 0 MLS/HR Octreotide Acetate 1250 mcg/ Sodium Chloride 250 ml @ 0 mls/hr PROTOCOL IV 08/29/25 08:30 09/01/25 10:32 DC 08/31/25 10:18 5 MLS/HR Ondansetron HCl (zoFRAN 4MG INJ) 4 mg Q6H PRN IVP NAUSEA/VOMITING 08/29/25 09:30 09/28/25 09:29 09/09/25 10:42 4 MG Pantoprazole Sodium (PROTonix 40MG INJ) 40 mg BID IVP 09/01/25 21:00 09/03/25 14:32 DC 09/03/25 09:16 40 MG Pantoprazole Sodium (PROTonix 40MG INJ) 40 mg BID IVP 09/06/25 09:00 10/06/25 08:59 09/15/25 08:03 40 MG Pantoprazole Sodium (PROTonix 40MG TAB) 40 mg DAILY PO 09/04/25 09:00 09/06/25 00:03 DC 09/05/25 08:06 40 MG Pantoprazole Sodium 80 mg/ Sodium Chloride 100 ml @ 10 mls/hr Q10H IV 08/29/25 08:30 09/01/25 10:32 DC 09/01/25 05:50 10 MLS/HR Pharmacy Profile Note (Pharmacy Communication) 1 each ONCE MISC 08/29/25 09:30 08/29/25 09:35 DC Pharmacy Profile Note (Pharmacy Communication) 1 each ONCE MISC 08/31/25 23:30 08/31/25 23:17 DC Potassium Chloride 100 ml @ 50 mls/hr AD PRN IV POTASSIUM PROTOCOL 08/29/25 12:30 09/28/25 12:29 09/14/25 17:44 50 MLS/HR Psyllium Hydrophilic Mucilloid (Metamucil) 1 tbs BID PO 09/12/25 17:00 09/12/25 18:00 DC 09/12/25 17:19 1 TBS Psyllium Hydrophilic Mucilloid (Metamucil) 1 tbs TID PO 09/04/25 14:00 09/12/25 16:49 DC 09/11/25 20:32 1 TBS Quetiapine Fumarate (SEROquel 25 mg TAB) 25 mg ONCE PRN PO INSOMNIA 09/11/25 21:00 09/13/25 08:14 DC 09/13/25 00:58 25 MG Sodium Bicarbonate 150 meq/Dextrose 1,150 ml @ 125 mls/hr Q9H12M IVP 08/29/25 10:00 08/30/25 10:12 DC 08/30/25 08:07 125 MLS/HR Sodium Bicarbonate (Sodium Bicarbonate) 1,300 mg QID PO 09/10/25 17:00 10/10/25 16:59 09/15/25 12:12 1,300 MG Sodium Bicarbonate (Sodium Bicarbonate) 1,300 mg TID PO 09/07/25 14:00 09/08/25 18:00 DC 09/08/25 16:15 1,300 MG Sodium Bicarbonate (Sodium Bicarbonate) 1,300 mg TID PO 09/09/25 09:00 09/10/25 12:00 DC 09/10/25 10:31 1,300 MG Sodium Chloride 250 ml @ 0 mls/hr AD IV 08/29/25 17:30 09/28/25 17:29 Sodium Chloride 1,000 ml @ 0 mls/hr Q0M IV 08/29/25 16:00 08/29/25 16:03 DC Sodium Chloride 1,000 ml @ 0 mls/hr Q0M IV 08/29/25 16:00 09/01/25 08:01 DC 08/29/25 16:10 500 MLS/HR Sodium Chloride 1,000 ml @ 125 mls/hr Q8H IV 08/29/25 09:30 08/29/25 09:57 DC Sodium Chloride 1,000 ml @ 150 mls/hr Q6H40M IV 08/29/25 18:30 09/01/25 09:29 DC 08/31/25 16:16 150 MLS/HR Sodium Chloride 1,000 ml @ 200 mls/hr PROTOCOL IV 08/29/25 12:30 08/29/25 16:05 DC Sodium Chloride 1,000 ml @ 999 mls/hr Q1H1M IV 08/29/25 09:30 08/29/25 09:06 DC Thiamine HCl (Vitamin B-1) 200 mg Q12H IVP 08/29/25 09:30 09/02/25 09:30 DC 09/02/25 08:56 200 MG Vitamin B Complex (Vitamin B-12) 1,000 mcg DAILY PO 09/08/25 09:00 10/08/25 08:59 09/15/25 08:03 1,000 MCG Diagnostics / Radiology: [COPY/PASTE HERE IF NO REPORTS PLEASE DELETE SECTION] Assessment: [Esophageal varices Liver cirrhosis Ileostomy status Hypertension Type 2 diabetes ] Plan: Continue GI prophylaxis Advance diet as tolerated Avoid NSAIDs Antireflux measures Monitor H&H and transfuse as needed Call with questions, concerns or change in clinical status Patient to follow-up at clinic post discharge Thank you for this consult STEPHEN THAO MANAGER MACHINE Sep 15, 2025 15:46
[2025-09-15] MEDS ORDERED: PoTASSium chl 10% ELIXIR 20MEQ 20 MEQ/15 ML UDCUP PO PRN (16:30)
[2025-09-15] MEDS: PoTASSium chloRIDE 20MEQ ER 20 MEQ ERTAB PO PRN (16:56)
[2025-09-16 04:00] VITALS: BP 117/66; PULSE 98; RESP 16; TEMP 98
[2025-09-16 07:22] LABS: NUCLEATED RED BLOOD CELLS 0.0 % (0.0-0.19); PLATELET COUNT (AUTO) 190 K/uL (130-400); RED BLOOD CELL COUNT(AUTO) 2.72 MIL/uL (4.00-5.50); RED CELL DISTRIBUTION WIDTH 19.6 % (11.0-15.5); WHITE BLOOD COUNT (AUTO) 4.5 K/uL (4.8-10.8)
[2025-09-16 07:30] LABS: CREATININE 0.9 mg/dL (0.5-1.0); GLOMERULAR FILTR. RATE CALC 75.0 mL/min (>90); GLUCOSE,RANDOM 99.0 mg/dL (70-105); SODIUM SERUM 138.0 mmol/L (136-145); UREA NITROGEN, BLOOD 13.0 mg/dL (7-18)
[2025-09-16 07:44] VITALS: O2SAT 100
[2025-09-16 08:01] VITALS: BP 158/69; PULSE 97; RESP 18; TEMP 97.9
--- NOTE | 2025-09-16 11:42 | NUR ---
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 Pending further recommendations from surgery.
[2025-09-16 12:00] VITALS: BP 112/54; PULSE 100; RESP 18; TEMP 98
--- NOTE | 2025-09-16 14:27 | PN ---
[facility] PROGRESS NOTE Date of Service: Sep 16, 2025 Time of Service: 14:13 SUBJECTIVE: As per admission notes "50-year-old female with underlying history of type 2 diabetes mellitus, history of liver cirrhosis, prior history of esophageal varices requiring banding in May,, history of robotic sigmoid resection with takedown of colovesical fistula who was recently hospitalized in [facility] from 07/20/2025 - 08/25/2025 patient was found to have bilious peritonitis with 2 mm perforation of colonic anastomosis requiring diagnostic laparoscopy, abdominal washout and drain placement with creation of diverting loop ileostomy. Patient was hospitalized for about one month and subsequently required IR guided drain placement as well. She was just discharged from the hospital on 08/25/2025. Patient's daughter reports that patient was having nausea and vomiting with poor oral intake at home. She started to have coffee-ground emesis today and she also noticed some right streaks of blood with a coffee-ground emesis. Stool has also been dark in the ileostomy bag. Patient is having moderate intensity abdominal pain as well. She has not been taking any NSAIDs. Daughter reports that patient has been very weak since her discharge in very debilitated. Patient denies active chest pain. Denies active shortness of breath. On presentation to the hospital, patient was noted to be afebrile with T-max of 97.5 F, heart rate of 100, blood pressure of 127/91. [place] [address], hemoglobin of 16.4, platelet count of 756758. BMP was repeated twice, BMP showed sodium of 117, potassium 7.0, chloride of 88, CO2 of seven, BUN of 83, creatinine 5.0, blood glucose of 99, calcium 10.4. Blood gas showed pH of 7.28, bicarb of close to eight, CO2 of 18, lactic acid of three. Patient will be admitted to ICU. Patient is presenting with severe renal failure with hyperkalemia and severe metabolic acidosis. Patient also with concerns for upper GI bleeding with coffee-ground emesis. Patient remains critically ill consultation with Intensive Care, Nephrology, GI will be requested. We we will obtain a CT abdomen pelvis without contrast for further evaluation as well. Patient is critically ill. Plan of care was discussed with patient and daughter at bedside" 08/30/2025 Patient was seen and examined at bedside. Her blood pressure has been low, 88/54, heart rate 86. She is currently on Levophed 0.2 Mcg, octreotide, Protonix, sodium bicarbonate drip. She received 2nd hemodialysis session yesterday. As per Nephrology, she will continue to receive dialysis inpatient. Her high anion gap metabolic acidosis is improving with sodium 134, carbon dioxide 31, chloride 96. Her creatinine has trended down from 5-1.8. General surgery consult is on board and we will follow up with their recommendations. Additionally, in the light of history of liver cirrhosis with esophageal varices, her recent hematemesis will be evaluated with GI consult and possible endoscopy. We discussed this with the patient and her family members present besides. Patient is started on Merrem and blood culture, urine cultures show no growth so far. Her lactic acid has trended down from 3.1 to 2.1. 08/31/2025 Patient was seen and examined at bedside in room 214. She continues to be on Levophed 0.1 which is being weaned off. She is also on Sandostatin and Protonix drip. Patient complained of mild pain along the sides of her drain but denied any nausea or episode of vomiting since Saturday. Minimal drainage was noted. Sodium bicarb was discontinued as per Nephrology. Her lab markers have improved with sodium 141, chloride 104, bicarb 32, creatinine 1, BUN 16, ammonia 34. Her urine sodium was less than 20 consistent with prerenal CYNTHIA. We are pending blood and urine culture results. Her total output in the past24 hours has been optimal, 2069. She is on sodium chloride 150 mL/hour. We are following gastroenterology recommendations of possible upper endoscopy in the morning if patient condition remains stable. 09/01/2025 Patient was seen and examined at bedside. She is off vasopressor support and is hemodynamically stable. Her chest x-ray showed opacity in the left lower lobe and we will follow up with CT scan of chest. She is started on 2nd day of ppm today. She successfully underwent EGD which showed small, less than 5 mm, esophageal varices with scar in the lower 3rd of the esophagus. Patient was noted to have portal hypertensive gastropathy which was biopsied. Duodenum was normal during examination. Patient is receiving Merrem and her blood culture and urine cultures have shown no growth so far. Due to her elevated ammonia levels, she will be started on lactulose. We will proceed with caution with respect to normal saline as patient's BNP is elevated. 09/02/2025 The patient has been seen and examined earlier this morning during my rounding, case discussed with the RN, no acute events overnight, blood pressure 118/71, heart rate of 56, afebrile, saturating normal on room air, CBC showing hemoglobin 8.5, hematocrit 36.8, WBC of 4.4, platelet count of 99, sodium 137, potassium 3.8, BUN of 18, creatinine 0.7, magnesium Lasix. Results of blood culture no growth after four days. Urine culture no growth. EGD reviewed, small less than 5 mm esophageal varices with scar in the lower 3rd of the esophagus. Patient with a bottle hypertensive gastropathy, status post biopsy, duodenum was normal during examination. Patient to be downgraded to the medical floor, continue banana bag, continue Protonix 40 mg IV b.i.d.. Plan for possible PEG tube placement. 09/03/2025 Patient was seen and examined at bedside. She has been advanced to GI soft bland diet which she is tolerating really well and having output in her ileostomy bag. As per surgeon, if she continues to tolerate diet, she may not require G-tube placement on discharge. Patient did not complain of any significant pain and seemed to be doing really well. Her cholecystostomy tube was removed but her splenic percutaneous tube is still in position and may require further IR intervention for repositioning due to persistent and mildly increased perisplenic fluid collection. She is receiving lactulose and her ammonia levels have gone down. Her acute renal failure continues to resolve and her vitals are also stable. No growth on urine and blood culture so far. We have shifted her from Protonix IV to p.o. as per GI recommendations. 09/04/2025 Patient was seen and examined at bedside in room 302. She has been tolerating GI soft bland diet, ileostomy output seems very high, liquid consistency and patient will be receiving fiber 3 times a day. Patient may require further IR intervention on Saturday for splenic drain reposition due to persistent and mildly increased perisplenic fluid collection. Vitals are stable, blood and urine culture shows no growth so far. 09/05/2025 Patient was seen and examined at bedside. She is tolerating GI soft bland diet, and her ileostomy output is high although liquid in consistency. We have decreased lactulose to b.i.d. from t.i.d. She continues on fiber 3 times a day as per surgery recommendations to bulk up the stool from the ileostomy in order to decrease the chances of further dehydration from high ileostomy output. Additionally, nodular swelling was appreciated in her right upper extremity which could be concerning for superficial venous thrombosis for which ultrasound Doppler of right upper extremity has been ordered. Patient is currently undergoing bladder training while being catheterized and we will proceed with Dueñas catheter removal as tolerated. 09/06/2025: Patient was seen and examined at bedside in room 302. She is tolerating GI soft bland diet and her ileostomy output has thicker consistency. Nurse reported that there was bright red blood in the ileostomy bag last night however this morning it was free from blood. Venous Doppler of the right upper extremity revealed deep vein thrombosis in right axillary vein and right cephalic vein, advice from Gastroenterology and Hematology was requested to start anticoagulation. Patient was started on Lovenox 1 mg/kg body weight as per Hematology recommendations. Patient will be continued on IV Protonix 40 mg b.i.d. 09/07/2025: Patient was seen and examined at bedside in room 302. Patient complained of generalized body pains however denied specific pain to the right a rm or in abdomen. She is tolerating GI soft bland it and had to 25 mL of total output from ileostomy bag last night as per the primary nurse. During my evaluation in the morning there was no blood observed in the ileostomy bag however around 10:30 a.m. nurse reported blood in the ileostomy bag. Dr. Gonzalez recommended to continue Lovenox and bridge with apixaban 10 mg for 5 days and then transition to apixaban 5 mg for 3 months. Surgery recommended to continue current medical management and await management of DVT for potential discharge. However we will try to connect with them regarding removal of splenic drain or repositioning through IR Services. 09/08/2025: Patient was examined at bedside in room 302. Patient's family mem bers were present during the evaluation of helped us translate. Her ileostomy bag was clear. Patient attendants voiced that patient was more anxious about noticing blood in her ileostomy bag. Patient's hemoglobin and hematocrit have remained stable. Ileostomy bag has been replaced due to leakage. Patient and the family members were educated on proper care for ileostomy bag by the wound care team and was also reinforced that she needs to be on anticoagulation for venous thrombosis for preventing dislodging of clot to lungs and causing fatal pulmonary embolism. Risks and benefits were explained to the patient that patient will need anticoagulation and her hemoglobin will be monitored regularly. Was also encouraged to keep her food intake high and prevent dehydration. We will connect with surgical team for management of splenic catheter drain. 09/09/2025: Patient was examined at the bedside in room 302. Patient had no acute events over night but continues to have difficulty falling asleep and anxiety from the medical complexity. Her hemoglobin is stable 9.2 today. Patient has an abdominal binder in place with ostomy ring for better seal. Patient will undergo CT abdomen for evaluation of removal of splenic catheter drain today. We discontinued her Duloxetine and started 7.5 mg of Mirtazapine at bedtime. 09/10/2025: Patient was examined at the bedside in room 302. Patient had no acut events overnight and reports she had a restful sleep last night. There was no reported leakage of blood into the ileostomy bag. Patient still has the ostomy ring and binder in place. Surgical team recommended considering variceal banding which could be the source of frequent bleeding into the ileostomy bag. They also recommended to keep the splenic catheter drain in place for continued perisplenic fluid. Nurse was notified to call GI team for further recommendations. We will continue to taper her midodrine in the subsequent days as she is maintaining good blood pressure. 09/11/2025: Patient was examined at bedside in room 302 with daughter at bedside. Patient reports that she still continues to have restless nights due to anxiety. There was no blood in the ileostomy bag noted over the last night however bag has to be replaced due to leakage. Currently pending GI recommendations for evaluation of varices for potential banding. Hemoglobin remained stable. Daughter expressed concerns about severe anxiety causing her to not eat, not ambulate, and unable to express fears due to the medical complexities involved. We ordered a tele psych consult for evaluation of severe anxiety and ordered Seroquel PRN for insomnia and we will continue mirtazapine 7.5 mg everyday. We will obtain recommendations from Gastroenterology on Saturday. In addition we reinforced to the daughter that patient's hemoglobin is being monitored on a daily basis and bleeding in ileostomy bag should not be a concern for anxiety and reiterated to explain this to her mother. Also enco uraged the patient to ambulate in the hallways and increase her dietary intake. 09/12/2025: Patient is seen in the room 302. Thid morning tele psych consultation was done. Gave following recommendations that patient is not suicidal homicidal or psychotic. Advised Remeron to [address] Sol called yesterday night to hold Eliquis for the possible EGD. So Eliquis held at least 3 days before the procedure. Changed ileostomy bag due to bag is leaking. General surgery recommends following- discontinue thickener, decrease lactulose to q.day, decrease Metamucil to b.i.d.. 09/13/2025: Patient is comfortably resting in her room. No acute events were reported overnight by the nursing staff. The patient denies melena, blood in the ileostomy bag, nausea, vomiting, or hematemesis. Patient is scheduled for EGD tomorrow. Eliquis was held starting yesterday to allow adequate time off anticoagulation before the procedure. The ileostomy no longer shows any bloody output. The patient reports tolerating diet well. The surgical team has evaluated her and advised that no further surgical intervention is required. She denies nausea, vomiting, or abdominal pain. Her ammonia level is 74, and she is receiving lactulose. Hemoglobin is stable at 9.1 g/dL. 09/14/2025: Patient is seen and evaluated in room number 302. She is scheduled for EGD today. She denies any new complaints, and the nursing staff reported no events overnight. Her hemoglobin remains stable at 9.1. Patient was comfortably sleeping in bed at the time of evaluation. 09/15/2025: Patient is seen and evaluated in room 302. EGD revealed small esophageal varices, a scar in the lower third of the esophagus, and portal hypertensive gastropathy. Eliquis 5 mg BID was initiated, and hemoglobin is ordered to be rechecked in 6 hours to monitor for any evidence of bleeding. CO2 is 19, indicating a bicarbonate deficit of 126; patient was given 50 mEq of IV sodium bicarbonate and along with oral sodium bicarbonate [address] scan of the abdomen and pelvis without contrast was ordered to evaluate the position of the splenic drain. 09/16/2025: Patient is seen and evaluated in room 302. History obtained from patient with the help of nurse translating . Patient reports no acute complaints at this time. She denies abdominal pain, nausea, vomiting, chest pain, shortness of breath, dizziness, or bleeding symptoms. The patient is aware of recent imaging findings. Her CT scan showed mesenteric panniculitis, for which the general surgery team has been consulted. 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 Her hemoglobin remains stable at 8.5 g/dL without signs of active bleeding. Addendeum , 1:30 pm : The patients daughter is present at bedside and is very anxious is concerned about the possibility of bleeding from the stomal site at home, especially while the patient is on blood thinners. Reassurance was provided and plan of care explained. we ordered right upper extremity venous D oppler ultrasound to evaluate the deep vein thrombosis (DVT) as per patients daughter's request. No additional complaints expressed. Splenic drains were removed after the CT abdomen yesterday.As per the patient and her daughter , they want to go home after discharge and defer rehab services for now (patient stated that she can do physical therapy at home).We have explained the complex nature of her medical conditions and that she need to continue Eliquis after discharge . Patient and daughter verbalised understanding of plan of care. REVIEW OF SYSTEMS CONSTITUTIONAL: malaise, tolerating diet well NEUROLOGICAL: Denies headache, motor weakness, sensory deficit, vertigo/spinning sensation, gait abnormalities, or tremors. ENT: No hearing loss, otalgia, otorrhea, rhinitis, rhinorrhea, hoarseness, or sore throat. CARDIOVASCULAR: Denies any exertional angina, dyspnea on exertion, orthopnea, paroxysmal nocturnal dyspnea, palpitations, life-threatening arrhythmias, claudication. PULMONARY: Denies any shortness of breath, cough, phlegm/sputum, hemoptysis, pleuritic chest pain. SLEEP: Denies morning headaches, daytime somnolence or napping. Denies difficulty falling asleep, staying asleep, waking from sleep. Denies knowledge of snoring. GASTROINTESTINAL: Denies nausea, vomiting, abdominal pain, melena, coffee ground emesis PHYSICAL EXAM GENERAL APPEARANCE: The patient is awake, alert, and oriented. Patient is very anxious. NEUROLOGICAL: Neurological examination is non focal with spontaneous movement of upper and lower extremities HEENT: Face is symmetric. Pupils are equal and reactive. Extraocular movements are intact. NECK: Supple. No thyromegaly. No submental, submandibular, pre-/postauricular, occipital or supraclavicular lymphadenopathy. CHEST: Normal chest expansion. No Telemetry. LUNGS: Absence of any rales, rhonchi or any wheezing. CARDIOVASCULAR: Regular. S1 and S2 normal. No appreciable rubs, murmurs or gallops. ABDOMEN: no rebound noted, there is perisplenic abdominal drain noted with ileostomy bag, ostomy ring and abdominal binder. : Deferred. Currently catheterized. EXTREMITIES: Mild ecchymosis. Vital Signs (last 8hr) Date Time Temp Pulse Resp B/P (MAP) Pulse Ox O2 Delivery O2 Flow Rate FiO2 09/16/25 12:00 98.1 100 18 112/54 96 Room Air 09/16/25 08:01 97.9 97 18 158/69 100 Room Air 09/16/25 07:44 100 Room Air* 0 21 LABS: Laboratory: Test 09/16/25 13:32 09/16/25 12:30 09/16/25 06:55 09/15/25 08:49 Range/Units Urine Random Sodium < 13 L 40-220 mmol/l Urine Random Potassium 23 L 25-125 mmol/L Urine Random Chloride 30 L 110-250 mmol/L Whole Blood Glucose 191 #H 70-110 MG/DL White Blood Count 4.5 L 4.8-10.8 K/uL Red Blood Count 2.72 L 4.00-5.50 MIL/uL Hemoglobin 8.5 L 12.0-16.0 g/dL Hematocrit 27.1 L 36-48 % Mean Corpuscular Volume 99.6 H 79-99 fL Mean Corpuscular Hemoglobin 31.3 27.0-33.0 pg Mean Corpuscular Hemoglobin Concent 31.4 L 32.0-36.0 g/dL Red Cell Distribution Width 19.6 H 11.0-15.5 % Platelet Count 190 130-400 K/uL Mean Platelet Volume 9.5 7.5-10.5 fL Nucleated Red Blood Cells 0.0 0.0-0.19 % Red Blood Cell Morphology See comments Sodium Level 138 136-145 mmol/L Potassium Level 4.5 3.5-5.1 mmol/L Chloride Level 109 101-111 mmol/L Carbon Dioxide Level 21 21-32 mmol/L Blood Urea Nitrogen 13 7-18 mg/dL Creatinine 0.9 0.5-1.0 mg/dL Glomerular Filtration Rate Calc 75 >90 mL/min Random Glucose 99 70-105 mg/dL Total Calcium 8.4 L 8.5-10.1 mg/dL Lactic Acid Level 2.0 0.8-2.5 mmol/L C-Reactive Protein, Quantitative 4.60 H 0.5-3.0 mg/L Test 09/15/25 04:33 Range/Units Immature Granulocyte % (Auto) 0.5 0-1 % Neutrophils (%) (Auto) 52.1 40.0-77.0 % Lymphocytes (%) (Auto) 32.0 21.0-51.0 % Monocytes (%) (Auto) 7.8 3.0-13.0 % Eosinophils (%) (Auto) 6.9 0.0-8.0 % Basophils (%) (Auto) 0.7 0.0-5.0 % Neutrophils # (Auto) 2.2 1.8-7.7 K/uL Lymphocytes # (Auto) 1.4 1.0-4.8 K/uL Monocytes # (Auto) 0.3 0.1-1.0 K/uL Eosinophils # (Auto) 0.29 0.00-0.70 K/uL Basophils # (Auto) 0.03 0.00-0.20 K/uL Absolute Immature Granulocyte (auto 0.02 0-1 K/uL Current Medications Medications (Trade) Dose Ordered Sig/Gregory Route PRN Reason Start Time Stop Time Status Last Admin Dose Admin Acetaminophen (TYLenol 325MG TAB) 650 mg Q6H PRN PO MILD PAIN (1-3) 08/29/25 10:00 09/28/25 09:59 09/16/25 13:04 650 MG Acetaminophen/ Hydrocodone Bitart (NORco 5/325MG) 2 tab Q4H PRN PO SEVERE PAIN (7-10) 09/08/25 09:30 09/13/25 09:29 DC 09/13/25 00:59 2 TAB Albuterol (DUOneb) 1 udvial Q6H PRN IH SHORTNESS OF BREATH 08/29/25 10:00 09/28/25 09:59 Apixaban (EliquIS) 5 mg BID PO 09/15/25 09:00 10/15/25 08:59 09/16/25 07:44 5 MG Apixaban (EliquIS) 5 mg BID PO 09/08/25 21:00 09/13/25 08:14 DC 09/11/25 20:32 5 MG Apixaban (EliquIS) 10 mg BID PO 09/07/25 22:00 09/08/25 01:42 DC 09/07/25 22:06 10 MG Apixaban (EliquIS) 10 mg BID PO 09/08/25 09:30 09/08/25 10:13 DC Atorvastatin Calcium (LIPItor 10MG) 5 mg HS PO 09/05/25 21:00 10/05/25 20:59 09/15/25 21:51 5 MG Calcium Gluconate (Calcium Gluc 1gm Vial) 1 gm ONCE IV 08/29/25 09:30 08/29/25 09:23 DC Cyclobenzaprine HCl (Cyclobenzaprine HCl) 5 mg TID PRN PO muscle spasms 09/05/25 11:00 10/05/25 10:59 Dextrose (D50w) 50 ml AD PRN IV HYPOGLYCEMIA PROTOCOL 08/29/25 10:00 09/28/25 09:59 Dextrose/Sodium Chloride 1,000 ml @ 0 mls/hr AD IV 08/29/25 12:30 08/29/25 16:05 DC Duloxetine HCl (CymbALTA 30 mg CAP) 30 mg BID PO 09/03/25 21:00 09/09/25 11:10 DC 09/09/25 10:37 30 MG Enoxaparin Sodium (Lovenox (Pharmacy To Dose)) 1 unit Q12H SQ 09/06/25 13:30 09/06/25 13:21 DC Enoxaparin Sodium (Lovenox 60mg) 60 mg Q12H SQ 09/06/25 13:30 09/07/25 15:03 DC 09/07/25 14:29 60 MG Folic Acid (FOLic ACID 1 MG TABLET) 1 mg DAILY PO 09/08/25 09:00 10/08/25 08:59 09/16/25 07:44 1 MG Glucagon (Glucagon 1mg Kit) 1 mg AD PRN IM HYPOGLYCEMIA PROTOCOL 08/29/25 10:00 09/28/25 09:59 Home Med (Home Medication) (Medroxyprogesterone Acetate (Provera) 1 TAB) DAILY PO 09/06/25 09:00 10/06/25 08:59 Insulin Human Regular (humuLIN R 100 UNIT/ML 3ML) 5 unit ONCE IV 08/29/25 09:30 08/29/25 09:25 DC Insulin Human Regular (humuLIN R 100 UNIT/ML 3ML) INSULIN SLIDING SCAL... ACHS SQ 08/29/25 11:30 09/28/25 11:29 09/16/25 13:08 2 UNIT Insulin Human Regular 100 unit/ Sodium Chloride 101 ml @ 0 mls/hr PROTOCOL IV 08/29/25 12:30 08/29/25 16:05 DC Lactated Ringer's 1,000 ml @ 100 mls/hr Q10H IV 09/06/25 00:00 09/06/25 18:44 DC 09/06/25 08:35 100 MLS/HR Lactulose (Constulose 20gm/ 30ml Udcup) 20 gm BID PO 09/05/25 21:00 09/12/25 16:49 DC 09/11/25 08:16 20 GM Lactulose (Constulose 20gm/ 30ml Udcup) 20 gm DAILY PO 09/12/25 17:00 09/12/25 17:00 DC Lactulose (Constulose 20gm/ 30ml Udcup) 20 gm TID PO 09/01/25 14:00 09/05/25 10:44 DC 09/05/25 08:06 20 GM Magnesium Sulfate 50 ml @ 0 mls/hr PROTOCOL IV 08/29/25 12:30 08/29/25 16:05 DC Magnesium Sulfate 50 ml @ 0 mls/hr PROTOCOL IV 08/30/25 10:00 09/29/25 09:59 09/13/25 05:22 25 MLS/HR Magnesium Sulfate 50 ml @ 0 mls/hr PROTOCOL IV 09/02/25 13:30 09/02/25 13:04 DC Magnesium Sulfate 50 ml @ 0 mls/hr PROTOCOL IV 09/03/25 08:00 09/03/25 07:43 DC Meropenem (Merrem 500mg) 500 mg Q24H IVPB 08/29/25 10:00 08/31/25 09:59 DC 08/30/25 09:46 500 MG Meropenem (Merrem 500mg) 500 mg Q24H IVPB 08/31/25 23:30 09/10/25 02:29 DC 09/09/25 23:40 500 MG Midodrine (PROAMatine 5 MG TABLET) 5 mg BID PO 09/10/25 09:00 09/11/25 07:21 DC 09/10/25 21:42 5 MG Midodrine (PROAMatine 5 MG TABLET) 5 mg DAILY20 PO 09/11/25 20:00 09/12/25 09:00 DC 09/11/25 20:31 5 MG Midodrine (PROAMatine 5 MG TABLET) 5 mg TID PO 09/08/25 21:00 09/10/25 08:05 DC 09/09/25 15:24 5 MG Midodrine (PROAMatine 5 MG TABLET) 10 mg BID PO 09/01/25 09:00 08/31/25 18:36 DC Midodrine (PROAMatine 5 MG TABLET) 10 mg TID PO 09/01/25 09:00 09/08/25 17:20 DC 09/08/25 16:16 10 MG Mirtazapine (REMeron 15 MG TAB) 7.5 mg HS PO 09/09/25 21:00 09/12/25 11:05 DC 09/11/25 20:31 7.5 MG Mirtazapine (REMeron 15 MG TAB) 15 mg HS PO 09/12/25 21:00 10/12/25 20:59 09/15/25 21:51 15 MG Morphine Sulfate (morPHINE 2MG SYG) 0.5 mg Q4H PRN IVP SEVERE PAIN (7-10) 09/07/25 13:30 09/08/25 09:11 DC 09/08/25 04:27 0.5 MG Morphine Sulfate (morPHINE 2MG SYG) 0.5 mg Q4H PRN IVP SEVERE PAIN (7-10) 09/08/25 18:00 09/09/25 11:10 DC Morphine Sulfate (morPHINE 2MG SYG) 1 mg Q4H PRN IVP SEVERE PAIN (7-10) 09/05/25 13:30 09/07/25 11:35 DC 09/06/25 23:40 1 MG Morphine Sulfate (morPHINE 2MG SYG) 2 mg Q4H PRN IVP SEVERE PAIN (7-10) 09/01/25 05:30 09/05/25 13:19 DC 09/05/25 04:28 2 MG Norepinephrine Bitartrate 32 mg/ Sodium Chloride 250 ml @ 0 mls/hr Q0M STAT IV 08/29/25 21:01 08/29/25 21:07 DC 08/29/25 21:13 0 MLS/HR Octreotide Acetate 1250 mcg/ Sodium Chloride 250 ml @ 0 mls/hr PROTOCOL IV 08/29/25 08:30 09/01/25 10:32 DC 08/31/25 10:18 5 MLS/HR Ondansetron HCl (zoFRAN 4MG INJ) 4 mg Q6H PRN IVP NAUSEA/VOMITING 08/29/25 09:30 09/28/25 09:29 09/16/25 13:55 4 MG Pantoprazole Sodium (PROTonix 40MG INJ) 40 mg BID IVP 09/01/25 21:00 09/03/25 14:32 DC 09/03/25 09:16 40 MG Pantoprazole Sodium (PROTonix 40MG INJ) 40 mg BID IVP 09/06/25 09:00 10/06/25 08:59 09/16/25 07:44 40 MG Pantoprazole Sodium (PROTonix 40MG TAB) 40 mg DAILY PO 09/04/25 09:00 09/06/25 00:03 DC 09/05/25 08:06 40 MG Pantoprazole Sodium 80 mg/ Sodium Chloride 100 ml @ 10 mls/hr Q10H IV 08/29/25 08:30 09/01/25 10:32 DC 09/01/25 05:50 10 MLS/HR Pharmacy Profile Note (Pharmacy Communication) 1 each ONCE MISC 08/29/25 09:30 08/29/25 09:35 DC Pharmacy Profile Note (Pharmacy Communication) 1 each ONCE MISC 08/31/25 23:30 08/31/25 23:17 DC Potassium Chloride 100 ml @ 50 mls/hr AD PRN IV POTASSIUM PROTOCOL 08/29/25 12:30 09/28/25 12:29 09/14/25 17:44 50 MLS/HR Potassium Chloride 100 ml @ 100 mls/hr AD PRN IV POTASSIUM PROTOCOL 09/15/25 16:30 09/15/25 16:28 DC Potassium Chloride (K-Dur/Klor-Con 20meq) 20 meq AD PRN PO POTASSIUM PROTOCOL 09/15/25 16:30 10/15/25 16:29 09/15/25 19:31 20 MEQ Potassium Chloride (KCl 10% Elixir 20meq/15ml) 20 meq AD PRN PO POTASSIUM PROTOCOL 09/15/25 16:30 10/15/25 16:29 Psyllium Hydrophilic Mucilloid (Metamucil) 1 tbs BID PO 09/12/25 17:00 09/12/25 18:00 DC 09/12/25 17:19 1 TBS Psyllium Hydrophilic Mucilloid (Metamucil) 1 tbs TID PO 09/04/25 14:00 09/12/25 16:49 DC 09/11/25 20:32 1 TBS Quetiapine Fumarate (SEROquel 25 mg TAB) 25 mg ONCE PRN PO INSOMNIA 09/11/25 21:00 09/13/25 08:14 DC 09/13/25 00:58 25 MG Sodium Bicarbonate 150 meq/Dextrose 1,150 ml @ 125 mls/hr Q9H12M IVP 08/29/25 10:00 08/30/25 10:12 DC 08/30/25 08:07 125 MLS/HR Sodium Bicarbonate (Sodium Bicarbonate) 1,300 mg QID PO 09/10/25 17:00 10/10/25 16:59 09/16/25 13:00 1,300 MG Sodium Bicarbonate (Sodium Bicarbonate) 1,300 mg TID PO 09/07/25 14:00 09/08/25 18:00 DC 09/08/25 16:15 1,300 MG Sodium Bicarbonate (Sodium Bicarbonate) 1,300 mg TID PO 09/09/25 09:00 09/10/25 12:00 DC 09/10/25 10:31 1,300 MG Sodium Chloride 250 ml @ 0 mls/hr AD IV 08/29/25 17:30 09/28/25 17:29 Sodium Chloride 1,000 ml @ 0 mls/hr Q0M IV 08/29/25 16:00 08/29/25 16:03 DC Sodium Chloride 1,000 ml @ 0 mls/hr Q0M IV 08/29/25 16:00 09/01/25 08:01 DC 08/29/25 16:10 500 MLS/HR Sodium Chloride 1,000 ml @ 125 mls/hr Q8H IV 08/29/25 09:30 08/29/25 09:57 DC Sodium Chloride 1,000 ml @ 150 mls/hr Q6H40M IV 08/29/25 18:30 09/01/25 09:29 DC 08/31/25 16:16 150 MLS/HR Sodium Chloride 1,000 ml @ 200 mls/hr PROTOCOL IV 08/29/25 12:30 08/29/25 16:05 DC Sodium Chloride 1,000 ml @ 999 mls/hr Q1H1M IV 08/29/25 09:30 08/29/25 09:06 DC Thiamine HCl (Vitamin B-1) 200 mg Q12H IVP 08/29/25 09:30 09/02/25 09:30 DC 09/02/25 08:56 200 MG Vitamin B Complex (Vitamin B-12) 1,000 mcg DAILY PO 09/08/25 09:00 10/08/25 08:59 09/16/25 07:44 1,000 [facility] RADIOLOGY: [place] [address] IMAGING REPORT Signed PATIENT: DALLAS BUCHANAN MR#: [id number] : 1970 SEX: F AGE: 55 LOCATION: 3AH ORDER 1316 STATUS: ADM IN REPORT#: [id number] SERVICE 1315 REASON: splenic abscess drain check ORDERING PHYSICIAN: SUNNY TORRE MD PROCEDURE: ABD PEL WO - CT ABDOMEN/PELVIS W/O CONTRAST EXAM: CT Abdomen and Pelvis Without IV contrast CLINICAL HISTORY: splenic abscess drain check TECHNIQUE: Axial computed tomography images of the abdomen and pelvis without intravenous contrast. CONTRAST: No IV contrast. COMPARISON: August 29, 2025 FINDINGS: LUNG BASES: The lung bases appear clear. No pleural effusions are seen. LIVER: Liver contour is nodular suggest underlying cirrhosis. GALLBLADDER AND BILE DUCTS: The gallbladder appears distended with calcification of the wall of the gallbladder.. No radioopaque gallstones are seen. No biliary ductal dilatation is evident. PANCREAS: Unremarkable. SPLEEN: Unremarkable. ADRENAL GLANDS: Unremarkable. KIDNEYS, URETERS, AND BLADDER: The kidneys appear within normal limits. There is no hydronephrosis or hydroureter. No urinary calculi are seen. STOMACH AND BOWEL: Unremarkable appearance of the stomach and bowel. No evidence of bowel obstruction. No evidence suggesting enteritis or colitis. There is a right lower quadrant ostomy noted. APPENDIX: No evidence of acute appendicitis on CT examination. PERITONEUM: Slight haziness within the mesentery is noted which is new compared to the prior. This is most appreciated below the level of the superior mesenteric vein. Redemonstration of a percutaneous pigtail catheter just below the spleen.. Fluid collection 1.8 x 2 cm has decreased compared to the prior. No free air. LYMPH NODES: No lymphadenopathy is evident. REPRODUCTIVE: Unremarkable as visualized. VASCULATURE: No evidence of abdominal aortic aneurysm. BONES: No aggressive appearing osseous lesion. No acute osseous pathology evident. IMPRESSION: 1. 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 2. Pigtail catheter is noted within a fluid collection along the left retroperitoneum 2 x 1.8 cm which has decreased in size. 3. Possible porcelain gallbladder. /[place] DICTATED BY: CELIA RITTER MD DATE: 09/15/251551 ELECTRONICALLY SIGNED BY: CELIA RITTER MD DATE: 09/15/251551 ASSESSMENT: Acute upper GI bleeding- Hematemesis, dark output from ileostomy bag, POA, Improving Anxiety Acute DVT of right axillary vein and right cephalic vein High output from ileostomy bag, not POA Hemorrhagic shock versus hypovolemic shock, POA, Resolved Normocytic normochromic anemia, POA Non anion gap metabolic acidosis Generalized anxiety and Insomnia, POA Hypovolemic hypochloremic hyponatremia, POA, Resolved Severe hyperkalemia, POA, Resolved Hypokalemia, Not POA, resolved Hypophosphatemia, Not POA High anion gap metabolic acidosis, POA, Resolved Hyperammonemia, POA, Improving Lactic acidosis, POA, Resolved Hyperphosphatemia, POA, Resolved Acute renal failure - Prerenal Acute Kidney Injury, POA, resolved Starvation Ketoacidosis, POA Rule out occult sepsis, POA Recent extended hospitalization in [facility], 07/20/2025- 5 for sepsis, acute abdomen, POA Severe Dehydration, POA, Improving History of esophageal varices, POA Acute Decompensated liver cirrhosis, POA Hx of acute cholecystitis, s/p cholecystostomy tube placement on 08/02/2025. Perisplenic abscess, s/p CT-guided drainage placement on 08/09/2025. 2.7 x 2.2 x 5.1 cm infrasplenic collection History of gastritis, POA Hx of Generalized peritonitis with ESBL E coli infection, POA Moderate Protein calorie malnutrition POA History of bilious peritonitis with small colonic anastomosis perforation s/p diagnostic laparoscopy, abdominal washout, ileostomy creation by Dr. Gann, 07/21/2025 Hx of DM II, POA Recent colovesical fistula repair with sigmoid colon resection and anastomosis on 07/09/2022 PLAN: High output from ileostomy * Continue fiber 3 times a day. Secretions have thickened. * Monitor for any signs of dehydration including vitals and BMP. * Lactulose decreased to b.i.d. from t.i.d.. * Ostomy ring and abdominal binder in place for better seal. * Monitor input and output including ileostomy bag. * Ileostomy bag change due to leakage * Surgery discontinued thickener * CO2 is 21 Acute DVT of right axillary vein and right cephalic vein * Ordered Venous doppler on the right upper limb to check the DVT * Patient developed nodular, tender swelling along the venous distribution in right upper extremity * Venous doppler on 09/05/25 revealed acute DVT of right axillary vein and right cephalic vein * Hematology recommended to bridge Lovenox 60 mg Q12 with Apixaban 10 mg BID for 5 days followed by Apixaban 5 mg bid for 3 months * We changed the apixaban to 5 mg b.i.d. * Gastroenterology cleared patient for anticoagulation * Eliquis was started today and will monitor Hemoglobin in 6 hours to check for bleeding Non-Anion gap metabolic acidosis - resolved * Patient's bicarb is 21 * Urinary electrolytes to check for urine anion gap - pending * CO2 is 19 and bicarb deficit is 126, patient was given 50 meq of sodium bicarbonate in 50 ml NS in a period of one hour on 09.16.2025 * We will monitor labs tomorrow a.m. Acute upper GI bleeding- Hematemesis, dark output from ileostomy bag * Recent EGD showed Small esophageal varices, scar in the lower 3rd of esophagus and portal gastropathy * Previous EGD was done which showed less than 5 mm esophageal varices with scar in the lower 3rd of the esophagus, hypertensive gastropathy, status post biopsy, duodenum was normal during examination. * Patient received Sandostatin and Protonix drip on presentation which were subsequently stopped . * Patient resumed on IV Protonix 40 mg b.i.d. * Diet advanced to regular diet * Monitor for bleeding, we will obtain recommendations from GI for possible variceal banding * Ileostomy output no longer shows any bloody output. * DC thickener Normocytic normochromic anemia, iron deficiency * Patient's hemoglobin is 8.5 * Anemia of chronic disease versus iron deficiency versus blood loss. * Iron 31, TIBC 155, % sat 20 * Keep hemoglobin above 7 Acute renal failure, Prerenal Acute Kidney Injury, Dehydration, resolved * On Presentation, patient's creatinine was 5, BUN 80. * FENa <0.2, Stone <20 - Urine microscopy showed Hyaline and granular casts * Patient was started on NaCl 150mls/hr which was stopped. * Bicarb drip was discontinued as per nephrology. * patient is successfully weaned off Levophed * Patient received emergent hemodialysis session for elevated renal parameters as well as electrolyte derangements including Hyperkalemia and acidosis. * Transfuse as needed to keep Hb above 7 (Hb=9.0, 08/31/25) * Monitor input and output. * We will repeat a.m. labs and follow up with Nephrology recommendations. Generalized anxiety and Insomnia * Patient very anxious about her health outcomes from the medical complexity * Patient is worried after noticing blood in the ileostomy bag while continuing anticoagulation for DVT * Patient reassured of close monitoring and risk vs benefits on continuing anticoagulation * Continue Seroquel 25 mg PRN * Tele psych consultation recommended - Remeron increased to 15 ATTESTATION BY PHYSICIAN I have seen and examined the patient. I reviewed the documentation, medical decision making, and treatment plan as noted by the resident provider above. I agree with the findings and plan of care. JarvisMiguel gage MD, LAKSHMI MD Sep 16, 2025 14:27 REBECCA GARCIA MD Sep 16, 2025 15:36
--- NOTE | 2025-09-16 15:03 | PN ---
NEPHROLOGY PROGRESS NOTE Date/Time Patient Seen: Sep 16, 2025 SUBJECTIVE: This is a 55-year-old female with a past medical history of diabetes mellitus type 2, liver cirrhosis, esophageal varices. She initially presented to the hospital with GI bleeding. The patient did have significant hyperkalemia upon admission and did require one course of dialysis. The patient's renal function has greatly improved. The patient had been having some hematochezia through the ostomy and the patient is being seen by Surgical Service and GI She continues to be followed by wound care. The patient is being seen as a followup visit for all of the above. Renal function and electrolytes have been stable. Hemoglobin has remained stable, continues on Eliquis S/P EGD showed small esophageal varices, a scar in the lower third of the esophagus, and portal hypertensive gastropathy She was seen in the medical floor, in no acute distress Multiple family members at the bedside REVIEW OF SYSTEMS: GENERAL: Positive for generalized weakness NEUROLOGIC: Negative for any blurry vision, blind spots, double vision, facial asymmetry, dysphagia, dysarthria, hemiparesis, hemisensory deficits, vertigo, ataxia. HEENT: Negative for any head trauma, neck trauma, neck stiffness, photophobia, phonophobia, sinusitis, rhinitis. CARDIAC: Negative for any chest pain, dyspnea on exertion, paroxysmal nocturnal dyspnea, peripheral edema. PULMONARY: Negative for any shortness of breath, wheezing, COPD, or TB exposure. GASTROINTESTINAL: Negative for any abdominal pain, nausea, vomiting, bright red blood per rectum, melena. GENITOURINARY: Negative for any dysuria, hematuria, incontinence. INTEGUMENTARY: Negative for any rashes, cuts, insect bites. RHEUMATOLOGIC: Negative for any joint pains, photosensitive rashes, history of vasculitis or kidney problems. HEMATOLOGIC: Negative for any abnormal bruising, frequent infections or bleeding. Vital Signs (last 8hr) Date Time Temp Pulse Resp B/P (MAP) Pulse Ox O2 Delivery O2 Flow Rate FiO2 09/16/25 12:00 98.1 100 18 112/54 96 Room Air 09/16/25 08:01 97.9 97 18 158/69 100 Room Air 09/16/25 07:44 100 Room Air* 0 21 PHYSICAL EXAM: GENERAL: Alert and oriented x 3. No acute distress. Well-nourished. EYES: EOMI. Anicteric. HENT: Moist mucous membranes. No scleral icterus. No cervical lymphadenopathy. LUNGS: Clear to auscultation bilaterally. No accessory muscle use. CARDIOVASCULAR: Regular rate and rhythm. No murmur. No JVD. ABDOMEN: Soft, non-tender and non-distended. No palpable masses. Ileostomy in place EXTREMITIES: No edema. Non-tender. SKIN: No rashes or lesions. Warm. NEUROLOGIC: No focal neurological deficits. CN II-XII grossly intact, but not individually tested. PSYCHIATRIC: Cooperative. Appropriate mood and affect. Current Medications Medications (Trade) Dose Ordered Sig/Gregory Route Start Time Stop Time Status Last Admin Dose Admin Apixaban (EliquIS) 5 mg BID PO 09/08/25 21:00 10/08/25 20:59 09/11/25 08:17 5 MG Apixaban (EliquIS) 10 mg BID PO 09/07/25 22:00 09/08/25 01:42 DC 09/07/25 22:06 10 MG Apixaban (EliquIS) 10 mg BID PO 09/08/25 09:30 09/08/25 10:13 DC Atorvastatin Calcium (LIPItor 10MG) 5 mg HS PO 09/05/25 21:00 10/05/25 20:59 09/10/25 20:25 5 MG Calcium Gluconate (Calcium Gluc 1gm Vial) 1 gm ONCE IV 08/29/25 09:30 08/29/25 09:23 DC Dextrose/Sodium Chloride 1,000 ml @ 0 mls/hr AD IV 08/29/25 12:30 08/29/25 16:05 DC Duloxetine HCl (CymbALTA 30 mg CAP) 30 mg BID PO 09/03/25 21:00 09/09/25 11:10 DC 09/09/25 10:37 30 MG Enoxaparin Sodium (Lovenox (Pharmacy To Dose)) 1 unit Q12H SQ 09/06/25 13:30 09/06/25 13:21 DC Enoxaparin Sodium (Lovenox 60mg) 60 mg Q12H SQ 09/06/25 13:30 09/07/25 15:03 DC 09/07/25 14:29 60 MG Folic Acid (FOLic ACID 1 MG TABLET) 1 mg DAILY PO 09/08/25 09:00 10/08/25 08:59 09/11/25 08:16 1 MG Home Med (Home Medication) (Medroxyprogesterone Acetate (Provera) 1 TAB) DAILY PO 09/06/25 09:00 10/06/25 08:59 Insulin Human Regular (humuLIN R 100 UNIT/ML 3ML) 5 unit ONCE IV 08/29/25 09:30 08/29/25 09:25 DC Insulin Human Regular (humuLIN R 100 UNIT/ML 3ML) INSULIN SLIDING SCAL... ACHS SQ 08/29/25 11:30 09/28/25 11:29 09/10/25 20:29 2 UNIT Insulin Human Regular 100 unit/ Sodium Chloride 101 ml @ 0 mls/hr PROTOCOL IV 08/29/25 12:30 08/29/25 16:05 DC Lactated Ringer's 1,000 ml @ 100 mls/hr Q10H IV 09/06/25 00:00 09/06/25 18:44 DC 09/06/25 08:35 100 MLS/HR Lactulose (Constulose 20gm/ 30ml Udcup) 20 gm BID PO 09/05/25 21:00 10/01/25 13:59 09/11/25 08:16 20 GM Lactulose (Constulose 20gm/ 30ml Udcup) 20 gm TID PO 09/01/25 14:00 09/05/25 10:44 DC 09/05/25 08:06 20 GM Magnesium Sulfate 50 ml @ 0 mls/hr PROTOCOL IV 08/29/25 12:30 08/29/25 16:05 DC Magnesium Sulfate 50 ml @ 0 mls/hr PROTOCOL IV 08/30/25 10:00 09/29/25 09:59 09/08/25 04:26 25 MLS/HR Magnesium Sulfate 50 ml @ 0 mls/hr PROTOCOL IV 09/02/25 13:30 09/02/25 13:04 DC Magnesium Sulfate 50 ml @ 0 mls/hr PROTOCOL IV 09/03/25 08:00 09/03/25 07:43 DC Meropenem (Merrem 500mg) 500 mg Q24H IVPB 08/29/25 10:00 08/31/25 09:59 DC 08/30/25 09:46 500 MG Meropenem (Merrem 500mg) 500 mg Q24H IVPB 08/31/25 23:30 09/10/25 02:29 DC 09/09/25 23:40 500 MG Midodrine (PROAMatine 5 MG TABLET) 5 mg BID PO 09/10/25 09:00 09/11/25 07:21 DC 09/10/25 21:42 5 MG Midodrine (PROAMatine 5 MG TABLET) 5 mg DAILY20 PO 09/11/25 20:00 09/12/25 09:00 Midodrine (PROAMatine 5 MG TABLET) 5 mg TID PO 09/08/25 21:00 09/10/25 08:05 DC 09/09/25 15:24 5 MG Midodrine (PROAMatine 5 MG TABLET) 10 mg BID PO 09/01/25 09:00 08/31/25 18:36 DC Midodrine (PROAMatine 5 MG TABLET) 10 mg TID PO 09/01/25 09:00 09/08/25 17:20 DC 09/08/25 16:16 10 MG Mirtazapine (REMeron 15 MG TAB) 7.5 mg HS PO 09/09/25 21:00 10/09/25 20:59 09/10/25 20:24 7.5 MG Norepinephrine Bitartrate 32 mg/ Sodium Chloride 250 ml @ 0 mls/hr Q0M STAT IV 08/29/25 21:01 08/29/25 21:07 DC 08/29/25 21:13 0 MLS/HR Octreotide Acetate 1250 mcg/ Sodium Chloride 250 ml @ 0 mls/hr PROTOCOL IV 08/29/25 08:30 09/01/25 10:32 DC 08/31/25 10:18 5 MLS/HR Pantoprazole Sodium (PROTonix 40MG INJ) 40 mg BID IVP 09/01/25 21:00 09/03/25 14:32 DC 09/03/25 09:16 40 MG Pantoprazole Sodium (PROTonix 40MG INJ) 40 mg BID IVP 09/06/25 09:00 10/06/25 08:59 09/11/25 08:16 40 MG Pantoprazole Sodium (PROTonix 40MG TAB) 40 mg DAILY PO 09/04/25 09:00 09/06/25 00:03 DC 09/05/25 08:06 40 MG Pantoprazole Sodium 80 mg/ Sodium Chloride 100 ml @ 10 mls/hr Q10H IV 08/29/25 08:30 09/01/25 10:32 DC 09/01/25 05:50 10 MLS/HR Pharmacy Profile Note (Pharmacy Communication) 1 each ONCE MISC 08/29/25 09:30 08/29/25 09:35 DC Pharmacy Profile Note (Pharmacy Communication) 1 each ONCE MISC 08/31/25 23:30 08/31/25 23:17 DC Psyllium Hydrophilic Mucilloid (Metamucil) 1 tbs TID PO 09/04/25 14:00 10/04/25 13:59 09/11/25 08:17 1 TBS Sodium Bicarbonate 150 meq/Dextrose 1,150 ml @ 125 mls/hr Q9H12M IVP 08/29/25 10:00 08/30/25 10:12 DC 08/30/25 08:07 125 MLS/HR Sodium Bicarbonate (Sodium Bicarbonate) 1,300 mg QID PO 09/10/25 17:00 10/10/25 16:59 09/11/25 08:16 1,300 MG Sodium Bicarbonate (Sodium Bicarbonate) 1,300 mg TID PO 09/07/25 14:00 09/08/25 18:00 DC 09/08/25 16:15 1,300 MG Sodium Bicarbonate (Sodium Bicarbonate) 1,300 mg TID PO 09/09/25 09:00 09/10/25 12:00 DC 09/10/25 10:31 1,300 MG Sodium Chloride 250 ml @ 0 mls/hr AD IV 08/29/25 17:30 09/28/25 17:29 Sodium Chloride 1,000 ml @ 0 mls/hr Q0M IV 08/29/25 16:00 08/29/25 16:03 DC Sodium Chloride 1,000 ml @ 0 mls/hr Q0M IV 08/29/25 16:00 09/01/25 08:01 DC 08/29/25 16:10 500 MLS/HR Sodium Chloride 1,000 ml @ 125 mls/hr Q8H IV 08/29/25 09:30 08/29/25 09:57 DC Sodium Chloride 1,000 ml @ 150 mls/hr Q6H40M IV 08/29/25 18:30 09/01/25 09:29 DC 08/31/25 16:16 150 MLS/HR Sodium Chloride 1,000 ml @ 200 mls/hr PROTOCOL IV 08/29/25 12:30 08/29/25 16:05 DC Sodium Chloride 1,000 ml @ 999 mls/hr Q1H1M IV 08/29/25 09:30 08/29/25 09:06 DC Thiamine HCl (Vitamin B-1) 200 mg Q12H IVP 08/29/25 09:30 09/02/25 09:30 DC 09/02/25 08:56 200 MG Vitamin B Complex (Vitamin B-12) 1,000 mcg DAILY PO 09/08/25 09:00 10/08/25 08:59 09/11/25 08:16 1,000 MCG LABORATORY: [ ] Hematology Labs: Test 09/16/25 06:55 09/15/25 04:33 Range/Units White Blood Count 4.5 L 4.8-10.8 K/uL Red Blood Count 2.72 L 4.00-5.50 MIL/uL Hemoglobin 8.5 L 12.0-16.0 g/dL Hematocrit 27.1 L 36-48 % Mean Corpuscular Volume 99.6 H 79-99 fL Mean Corpuscular Hemoglobin 31.3 27.0-33.0 pg Mean Corpuscular Hemoglobin Concent 31.4 L 32.0-36.0 g/dL Red Cell Distribution Width 19.6 H 11.0-15.5 % Platelet Count 190 130-400 K/uL Mean Platelet Volume 9.5 7.5-10.5 fL Nucleated Red Blood Cells 0.0 0.0-0.19 % Red Blood Cell Morphology See comments Immature Granulocyte % (Auto) 0.5 0-1 % Neutrophils (%) (Auto) 52.1 40.0-77.0 % Lymphocytes (%) (Auto) 32.0 21.0-51.0 % Monocytes (%) (Auto) 7.8 3.0-13.0 % Eosinophils (%) (Auto) 6.9 0.0-8.0 % Basophils (%) (Auto) 0.7 0.0-5.0 % Neutrophils # (Auto) 2.2 1.8-7.7 K/uL Lymphocytes # (Auto) 1.4 1.0-4.8 K/uL Monocytes # (Auto) 0.3 0.1-1.0 K/uL Eosinophils # (Auto) 0.29 0.00-0.70 K/uL Basophils # (Auto) 0.03 0.00-0.20 K/uL Absolute Immature Granulocyte (auto 0.02 0-1 K/uL Chemistry Labs: Test 09/16/25 12:30 09/16/25 06:55 09/15/25 08:49 Range/Units Whole Blood Glucose 191 #H 70-110 MG/DL Sodium Level 138 136-145 mmol/L Potassium Level 4.5 3.5-5.1 mmol/L Chloride Level 109 101-111 mmol/L Carbon Dioxide Level 21 21-32 mmol/L Blood Urea Nitrogen 13 7-18 mg/dL Creatinine 0.9 0.5-1.0 mg/dL Glomerular Filtration Rate Calc 75 >90 mL/min Random Glucose 99 70-105 mg/dL Total Calcium 8.4 L 8.5-10.1 mg/dL Lactic Acid Level 2.0 0.8-2.5 mmol/L C-Reactive Protein, Quantitative 4.60 H 0.5-3.0 mg/L DIAGNOSTICS / RADIOLOGY: [facility] [place] [address] [place] [address] IMAGING REPORT Signed PATIENT: DALLAS BUCHANAN MR#: [id number] : 1970 SEX: F AGE: 55 LOCATION: 3AH ORDER 1316 STATUS: ADM IN REPORT#: [id number] SERVICE 1315 REASON: splenic abscess drain check ORDERING PHYSICIAN: SUNNY TORRE MD PROCEDURE: ABD PEL WO - CT ABDOMEN/PELVIS W/O CONTRAST EXAM: CT Abdomen and Pelvis Without IV contrast CLINICAL HISTORY: splenic abscess drain check TECHNIQUE: Axial computed tomography images of the abdomen and pelvis without intravenous contrast. CONTRAST: No IV contrast. COMPARISON: August 29, 2025 FINDINGS: LUNG BASES: The lung bases appear clear. No pleural effusions are seen. LIVER: Liver contour is nodular suggest underlying cirrhosis. GALLBLADDER AND BILE DUCTS: The gallbladder appears distended with calcification of the wall of the gallbladder.. No radioopaque gallstones are seen. No biliary ductal dilatation is evident. PANCREAS: Unremarkable. SPLEEN: Unremarkable. ADRENAL GLANDS: Unremarkable. KIDNEYS, URETERS, AND BLADDER: The kidneys appear within normal limits. There is no hydronephrosis or hydroureter. No urinary calculi are seen. STOMACH AND BOWEL: Unremarkable appearance of the stomach and bowel. No evidence of bowel obstruction. No evidence suggesting enteritis or colitis. There is a right lower quadrant ostomy noted. APPENDIX: No evidence of acute appendicitis on CT examination. PERITONEUM: Slight haziness within the mesentery is noted which is new compared to the prior. This is most appreciated below the level of the superior mesenteric vein. Redemonstration of a percutaneous pigtail catheter just below the spleen.. Fluid collection 1.8 x 2 cm has decreased compared to the prior. No free air. LYMPH NODES: No lymphadenopathy is evident. REPRODUCTIVE: Unremarkable as visualized. VASCULATURE: No evidence of abdominal aortic aneurysm. BONES: No aggressive appearing osseous lesion. No acute osseous pathology evident. IMPRESSION: 1. 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 2. Pigtail catheter is noted within a fluid collection along the left retroperitoneum 2 x 1.8 cm which has decreased in size. 3. Possible porcelain gallbladder. /[place] DICTATED BY: CELIA RITTER MD DATE: 09/15/251551 ELECTRONICALLY SIGNED BY: CELIA RITTER MD DATE: 09/15/251551 PATIENT: DALLAS BUCHANAN MR#: [id number] : 1970 SEX: F AGE: 55 LOCATION: 3AH ORDER 2300 STATUS: ADM IN REPORT#: [id number] SERVICE 0600 REASON: EVALUATE LUQ PIGRTAIL FOR POSSIBLE REMOVAL ORDERING PHYSICIAN: FE BRODY MD PROCEDURE: ABDO WO - CT ABDOMEN W/O CONTRAST EXAM: CT ABDOMEN WITHOUT INTRAVENOUS CONTRAST Technique: Multislice helical computed tomography from the diaphragms through the inguinal region with thin-section axial images and coronal/sagittal reformations; dose reduction applied per ALARA. CTDIvol 6.5 mGy; DLP 204.50 mGy???cm. Contrast: No intravenous contrast administered. Clinical Information: Evaluate left upper-quadrant pigtail catheter for possible removal. Comparison: CT abdomen without contrast 09/06 00:31 EST Findings: Lung bases: Residual trace left pleural effusion with adjacent atelectasis; previously described calcified right lower-lobe pulmonary nodule is not visualized on this limited abdominal coverage. Liver: Nodular hepatic contour consistent with cirrhosis; no focal hepatic lesion identified on this noncontrast study. Gallbladder and biliary tree: Multiple punctate calcifications along the gallbladder wall; no biliary ductal dilatation. Pancreas and spleen: Stable perisplenic fluid collection with an indwelling drainage catheter and adjacent mild fat stranding; pancreatic contour and attenuation are unremarkable. Adrenal glands: Unremarkable bilaterally. Kidneys and ureters: Normal size and morphology; no hydronephrosis or nephrolithiasis. Stomach and bowel: Stomach distended with food residue; right lumbar ileostomy with stable postsurgical bowel changes; no bowel obstruction identified. Peritoneum and mesentery: Stable mild mesenteric edema; interval resolution of the previously noted minimal free fluid along the greater curvature of the stomach; no new free fluid or free intraperitoneal air. Lymph nodes: No pathologic abdominopelvic lymphadenopathy. Vasculature: No abdominal aortic aneurysm. Abdominal wall/soft tissues: No focal collection aside from the described perisplenic drain. Osseous structures: Multilevel mild spondylosis; no acute osseous abnormality. Impression: * Stable perisplenic fluid collection with an indwelling drainage catheter and mild adjacent fat stranding???correlate with drain output, clinical status, and inflammatory markers to determine readiness for catheter removal; interval imaging or catheter study may be helpful if uncertainty persists. * Cirrhotic liver morphology. Recommend clinical and laboratory correlation and hepatology follow-up if not already established. * Gallbladder wall calcifications (punctate pattern) without biliary dilatation???correlate clinically; consider surgical consultation if porcelain gallbladder is suspected based on pattern and extent of calcification. * Residual trace left pleural effusion with adjacent atelectasis; stomach distention with food residue; right lumbar ileostomy with expected postsurgical changes; no new abdominopelvic free fluid or free air. * Compared with 09/06/2025 00:31 EST, the perisplenic collection is unchanged with the drain remaining in place, the previously described minimal perigastric free fluid has resolved, and the prior calcified right lower-lobe nodule is not visualized on this limited abdominal scan; otherwise, no significant interval change. /[place] DICTATED BY: EDWIGE LEDESMA MD DATE: 09/09/251409 ELECTRONICALLY SIGNED BY: EDWIGE LEDESMA MD DATE: 09/09/251409 PATIENT: DALLAS BUCHANAN MR#: [id number] : 1970 SEX: F AGE: 55 LOCATION: 3AH ORDER 2351 STATUS: ADM IN REPORT#: [id number] SERVICE 2346 REASON: abdiominal pain ORDERING PHYSICIAN: CYNTHIA ALEXANDER PROJECT/PRODUCTION MANAGER IMAGING PROCEDURE: ABDO WO - CT ABDOMEN W/O CONTRAST EXAMINATION CT Abdomen Without IV Contrast CLINICAL HISTORY Patient presents with abdominal pain. TECHNIQUE Axial computed tomography images of the abdomen were obtained without intravenous contrast. CONTRAST No IV contrast administered. COMPARISON 09/01/2025. FINDINGS: LUNG BASES: Residual trace left pleural effusion with adjacent atelectasis. Interval resolution of previously described mild right pleural effusion. Stable calcified nodule in the right lower lobe. LIVER: Nodular hepatic contour consistent with cirrhosis. GALLBLADDER AND BILE DUCTS: Multiple punctate calcifications in the gallbladder wall. No biliary ductal dilatation. PANCREAS AND SPLEEN: Stable perisplenic fluid collection with drainage catheter in situ and adjacent fat stranding. ADRENAL GLANDS: Unremarkable. KIDNEYS AND URETERS: Normal in size and morphology. No hydronephrosis or nephrolithiasis. STOMACH AND BOWEL: Stomach distended with food residue. Right lumbar ileostomy with stable postsurgical bowel changes. Uncomplicated colonic diverticula. A component of mild constipation. PERITONEUM: Stable mild mesenteric edema. Significant interval resolution of the previously demonstrated minimal free fluid along the greater curvature of the stomach. No new free fluid or free air. LYMPH NODES: No significant lymphadenopathy. VASCULATURE: No abdominal aortic aneurysm. BONES: Multilevel mild spondylosis. IMPRESSION: Nodular cirrhotic liver. Stable perisplenic fluid collection with drainage catheter in situ and adjacent fat stranding. Right lumbar ileostomy with stable postsurgical bowel changes. Residual trace left pleural effusion with adjacent atelectasis. Interval resolution of the right pleural effusion. Stable calcified right lower lobe pulmonary nodule. Stomach distended with food residue. Uncomplicated colonic diverticula with mild constipation. Stable mild mesenteric edema with interval resolution of previously described minimal free fluid. Multiple punctate calcifications in the gallbladder wall, likely cholesterolosis. /[facility] DICTATED BY: ELDON MILLER Jr., MD DATE: 09/06/25233 ELECTRONICALLY SIGNED BY: ELDON MILLER Jr., MD DATE: 09/06/25233 PATIENT: DALLAS BUCHANAN MR#: [id number] : 1970 SEX: F AGE: 55 LOCATION: 3AH ORDER 131 STATUS: ADM IN REPORT#: [id number] SERVICE 1316 REASON: R/o DVT versus SVT ORDERING PHYSICIAN: SONJA PERALTA MD PROCEDURE: VENOUS UNI - US VENOUS DOPPLER UNILATERAL ADDENDUM REPORT ADDENDUM: Results were shared by telephone at 10:59am on 09-06-25 and acknowledged by Patients Nurse Ms. Britt Robert /[facility] EXAMINATION: SPECTRAL DOPPLER ULTRASOUND EXAMINATION OF THE RIGHT UPPER EXTREMITY VEINS. CLINICAL HISTORY: To rule out DVT. COMPARISON: None. TECHNIQUE: Grayscale, color, and spectral Doppler images of the right upper extremity veins are submitted. FINDINGS: The internal jugular, subclavian, basilic, and brachial veins are patent. These veins show normal flow with physiological changes of phasicity and augmentation. The right axillary vein and cephalic veins are non-compressible and there is no flow on augmentation. IMPRESSION: Acute deep vein thrombosis in the right axillary vein. Right cephalic vein thrombosis. There is no deep vein thrombosis in the remainder of the right upper extmreiyt, /[facility] DICTATED BY: TOBI LEAHY MD DATE: 09/06/25 1155 ELECTRONICALLY SIGNED BY: DATE: EXAMINATION: SPECTRAL DOPPLER ULTRASOUND EXAMINATION OF THE RIGHT UPPER EXTREMITY VEINS. CLINICAL HISTORY: To rule out DVT. COMPARISON: None. TECHNIQUE: Grayscale, color, and spectral Doppler images of the right upper extremity veins are submitted. FINDINGS: The internal jugular, subclavian, basilic, and brachial veins are patent. These veins show normal flow with physiological changes of phasicity and augmentation. The right axillary vein and cephalic veins are non-compressible and there is no flow on augmentation. IMPRESSION: Acute deep vein thrombosis in the right axillary vein. Right cephalic vein thrombosis. There is no deep vein thrombosis in the remainder of the right upper extmreiyt, /[place] DICTATED BY: TOBI LEAHY MD DATE: 09/06/25941 ELECTRONICALLY SIGNED BY: TOBI LEAHY MD DATE: 09/06/25941 PATIENT: DALLAS BUCHANAN MR#: [id number] : 1970 SEX: F AGE: 55 LOCATION: 3AH ORDER 99 STATUS: ADM IN REPORT#: [id number] SERVICE 0600 REASON: hypoxic ORDERING PHYSICIAN: LOBO RICKS PROCEDURE: CXR1VW - CHEST 1VW EXAM: CR Chest, 1 View (Portable, Supine). CLINICAL HISTORY: Chest pain. COMPARISON: CR Chest, 2 View ??? 09/01/2025 01:13 AM EDT. FINDINGS: LUNGS: Area of haziness in left lower zone-Remained stable. Rest of the lungs are clear. No focal consolidation, pulmonary edema, or acute infiltrate. PLEURAL SPACES: No pleural effusion or pneumothorax. MEDIASTINUM: Cardiac size and mediastinal contours within normal limits. No acute osseous abnormality. LINES/DEVICES: Monitoring leads noted. No new devices identified. IMPRESSION: Area of haziness in left lower zone likely airspace opacity-Stable compared to previous radiograph. /[facility] DICTATED BY: TOBI LEAHY MD DATE: 09/03/251137 ELECTRONICALLY SIGNED BY: TOBI LEAHY MD DATE: 09/03/251137 PATIENT: DALLAS BUCHANAN MR#: [id number] : 1970 SEX: F AGE: 55 LOCATION: 2CV ORDER 1231 STATUS: ADM IN REPORT#: [id number] SERVICE 1227 REASON: EVALUATE LUQ PIGRTAIL FOR POSSIBLE REMOVAL ORDERING PHYSICIAN: SUSAN JHAVERI MD PROCEDURE: ABDO WO - CT ABDOMEN W/O CONTRAST ADDENDUM REPORT ADDENDUM: Results were shared by telephone at 11:21 pm on 09-01-25 and acknowledged by Patient's Nurse Jabier Bangura. /[facility] EXAM: CT ABDOMEN WITHOUT INTRAVENOUS CONTRAST Technique: Multislice helical computed tomography of the abdomen was performed from the diaphragms through the iliac crests with axial images and coronal/sagittal reformations. Dose optimization per ALARA. Contrast: No intravenous contrast administered. Contrast Impression: Noncontrast technique limits assessment of enhancement-dependent pathology and characterization of fluid collections. Clinical Information: Evaluation of left upper quadrant pigtail drain for possible removal. Comparison: CT abdomen/pelvis without contrast dated 08/29/2025. Findings: Lung bases: Interval development of small bilateral pleural effusions with dependent subsegmental atelectasis in the lower lobes. Previously described tiny calcified nodules are not conspicuous on the current noncontrast images. Liver: Morphologic features of cirrhosis are unchanged. No focal hepatic lesion identified on this noncontrast study. Gallbladder and bile ducts: Decompressed gallbladder with a cholecystostomy tube in place, stable. No biliary ductal dilatation. Pancreas: Normal contour without peripancreatic inflammatory change. Spleen: Infrasplenic fluid collection adjacent to the splenic inferior pole measuring approximately 2.7 ??? 3.5 ??? 6.4 cm (previously 2.7 ??? 2.2 ??? 5.1 cm), with a pigtail drainage catheter in situ and mild adjacent fat stranding. Adrenal glands: Normal morphology bilaterally. Kidneys and ureters: Kidneys within normal size and contour; no hydronephrosis or hydroureter; no nephrolithiasis. Urinary bladder: Dueñas catheter in place with small intraluminal gas foci, likely iatrogenic; bladder otherwise unremarkable. Stomach and bowel: Right iliac fossa ileostomy defect ( 2.4 cm) and postoperative bowel changes, stable. No evidence of bowel obstruction, enteritis, or colitis. Peritoneum and mesentery: New minimal free fluid predominantly along the greater curvature of the stomach with mild mesenteric edema (anasarca). No free intraperitoneal air. Lymph nodes: No pathologic abdominopelvic lymphadenopathy. Vasculature: Abdominal aorta normal in caliber. Abdominal wall/soft tissues: Expected postoperative changes at the ostomy site; otherwise unremarkable. Osseous structures: No acute or aggressive osseous abnormality; mild degenerative changes in the visualized spine. Impression: * Infrasplenic collection with indwelling pigtail drain has increased in size compared with 08/29/2025 (now 2.7 ??? 3.5 ??? 6.4 cm from 2.7 ??? 2.2 ??? 5.1 cm) with mild surrounding fat stranding???ongoing collection persists. Drain removal is not advised at this time based on interval enlargement; recommend interventional radiology review for catheter position/patency, consideration of catheter upsizing or repositioning, and correlation with output and culture. * New small bilateral pleural effusions with dependent basilar atelectasis. Monitor clinically; consider diuresis or follow-up imaging as indicated. * Cirrhotic hepatic morphology, unchanged. * Decompressed gallbladder with cholecystostomy tube in place, stable; no biliary ductal dilatation. * Minimal ascites and mild mesenteric edema (anasarca), new from prior. * Dueñas catheter with small intravesical gas, likely iatrogenic. * No bowel obstruction, hydronephrosis, or nephrolithiasis identified. /[facility] DICTATED BY: EDWIGE LEDESMA MD DATE: 09/01/25 7732 ELECTRONICALLY SIGNED BY: DATE: EXAM: CT ABDOMEN WITHOUT INTRAVENOUS CONTRAST Technique: Multislice helical computed tomography of the abdomen was performed from the diaphragms through the iliac crests with axial images and coronal/sagittal reformations. Dose optimization per ALARA. Contrast: No intravenous contrast administered. Contrast Impression: Noncontrast technique limits assessment of enhancement-dependent pathology and characterization of fluid collections. Clinical Information: Evaluation of left upper quadrant pigtail drain for possible removal. Comparison: CT abdomen/pelvis without contrast dated 08/29/2025. Findings: Lung bases: Interval development of small bilateral pleural effusions with dependent subsegmental atelectasis in the lower lobes. Previously described tiny calcified nodules are not conspicuous on the current noncontrast images. Liver: Morphologic features of cirrhosis are unchanged. No focal hepatic lesion identified on this noncontrast study. Gallbladder and bile ducts: Decompressed gallbladder with a cholecystostomy tube in place, stable. No biliary ductal dilatation. Pancreas: Normal contour without peripancreatic inflammatory change. Spleen: Infrasplenic fluid collection adjacent to the splenic inferior pole measuring approximately 2.7 ??? 3.5 ??? 6.4 cm (previously 2.7 ??? 2.2 ??? 5.1 cm), with a pigtail drainage catheter in situ and mild adjacent fat stranding. Adrenal glands: Normal morphology bilaterally. Kidneys and ureters: Kidneys within normal size and contour; no hydronephrosis or hydroureter; no nephrolithiasis. Urinary bladder: Dueñas catheter in place with small intraluminal gas foci, likely iatrogenic; bladder otherwise unremarkable. Stomach and bowel: Right iliac fossa ileostomy defect ( 2.4 cm) and postoperative bowel changes, stable. No evidence of bowel obstruction, enteritis, or colitis. Peritoneum and mesentery: New minimal free fluid predominantly along the greater curvature of the stomach with mild mesenteric edema (anasarca). No free intraperitoneal air. Lymph nodes: No pathologic abdominopelvic lymphadenopathy. Vasculature: Abdominal aorta normal in caliber. Abdominal wall/soft tissues: Expected postoperative changes at the ostomy site; otherwise unremarkable. Osseous structures: No acute or aggressive osseous abnormality; mild degenerative changes in the visualized spine. Impression: * Infrasplenic collection with indwelling pigtail drain has increased in size compared with 08/29/2025 (now 2.7 ??? 3.5 ??? 6.4 cm from 2.7 ??? 2.2 ??? 5.1 cm) with mild surrounding fat stranding???ongoing collection persists. Drain removal is not advised at this time based on interval enlargement; recommend interventional radiology review for catheter position/patency, consideration of catheter upsizing or repositioning, and correlation with output and culture. * New small bilateral pleural effusions with dependent basilar atelectasis. Monitor clinically; consider diuresis or follow-up imaging as indicated. * Cirrhotic hepatic morphology, unchanged. * Decompressed gallbladder with cholecystostomy tube in place, stable; no biliary ductal dilatation. * Minimal ascites and mild mesenteric edema (anasarca), new from prior. * Dueñas catheter with small intravesical gas, likely iatrogenic. * No bowel obstruction, hydronephrosis, or nephrolithiasis identified. /[facility] DICTATED BY: EDWIGE LEDESMA MD DATE: 09/01/252258 ELECTRONICALLY SIGNED BY: EDWIGE LEDESMA MD DATE: 09/01/252258 PATIENT: DALLAS BUCHANAN MR#: [id number] : 1970 SEX: F AGE: 55 LOCATION: 2CV ORDER 1130 STATUS: ADM IN REPORT#: [id number] SERVICE [id number] REASON: Left lower lung lobe opacities ORDERING PHYSICIAN: SONJA PERALTA MD PROCEDURE: CHEST WO - CT CHEST W/O CONTRAST EXAM: CT CHEST WITHOUT INTRAVENOUS CONTRAST Technique: Helical computed tomography of the chest from thoracic inlet through the upper abdomen without intravenous contrast, with axial images and coronal/sagittal reformations. Dose optimization performed in accordance with ALARA. Clinical Information: Left lower lung lobe opacities. Comparison: Chest radiograph dated 09/01/2025 at 05:46 EDT. Findings: Soft tissues: Unremarkable. Lungs and large airways: Central airways are patent. Subsegmental consolidation in the posterior segments of both lower lobes. Additional subsegmental consolidation in the superior segment of the left upper lobe. Linear atelectatic bands in the superior lingular segment and posterior segment of the left upper lobe. A calcified pulmonary nodule measures 5 mm in the right lower lobe (series 3, image 29). Pleura: Minimal bilateral pleural effusions. No pneumothorax. Heart and pericardium: Cardiac size within normal limits. No pericardial effusion. Aorta: Normal course and caliber on this noncontrast study. Pulmonary arteries: Evaluation limited without contrast; no large central filling defect is seen on this noncontrast exam. Lymph nodes: No pathologically enlarged mediastinal or hilar lymph nodes. Mediastinum and toya: No mass identified. Chest wall and lower neck: No acute abnormality. Bones/joints: No acute osseous abnormality. Upper abdomen: Visualized portions without acute abnormality; detailed abdominal findings are reported separately. Impression: * Subsegmental consolidation in the posterior segments of both lower lobes and in the superior segment of the left upper lobe with minimal bilateral pleural effusions???most compatible with multifocal atelectasis versus infection/aspiration in the appropriate clinical context. Recommend clinical correlation and short-interval follow-up chest imaging to document resolution. * Benign-appearing calcified pulmonary nodule in the right lower lobe measuring 5 mm (series 3, image 29), consistent with a granuloma; no additional suspicious nodules identified. * No pneumothorax or acute cardiomediastinal abnormality identified on this noncontrast examination. /[facility] DICTATED BY: EDWIGE LEDESMA MD DATE: 09/01/252255 ELECTRONICALLY SIGNED BY: EDWIGE LEDESMA MD DATE: 09/01/252255 PATIENT: DALLAS BUCHANAN MR#: [id number] : 1970 SEX: F AGE: 55 LOCATION: 2CV ORDER 99 STATUS: ADM IN REPORT#: [id number] SERVICE 0600 REASON: hypoxic ORDERING PHYSICIAN: LOBO RICKS PROCEDURE: CXR1VW - CHEST 1VW EXAM: CR Chest, 1 View (Portable, Supine). CLINICAL HISTORY: Chest pain. COMPARISON: CR Chest, 2 View ??? 08/31/2025 01:13 AM EDT. FINDINGS: LUNGS: Mild prominence of bronchovascular markings in bilateral lower zone. Area of haziness in left lower zone. Lungs are clear. No focal consolidation, pulmonary edema, or acute infiltrate. PLEURAL SPACES: No pleural effusion or pneumothorax. MEDIASTINUM: Cardiac size and mediastinal contours within normal limits. Right internal jugular central venous catheter remains in similar position with the tip projecting over the distal superior vena cava, unchanged from prior. BONES: No acute osseous abnormality. LINES/DEVICES: Right IJ central venous catheter as described. Monitoring leads noted. No new devices identified. IMPRESSION: * Stable position of right IJ central venous catheter with tip at distal SVC. * Area of haziness in left lower zone likely airspace opacity-New finding compared to previous radiograph. * Mild prominence of bronchovascular markings in bilateral lower zone-New finding compared to previous radiograph. Signed By: EDWIGE LEDESMA M.D. /[place] DICTATED BY: TOBI LEAHY MD DATE: 09/01/251518 ELECTRONICALLY SIGNED BY: TOBI LEAHY MD DATE: 09/01/251518 PATIENT: DALLAS BUCHANAN MR#: [id number] : 1970 SEX: F AGE: 55 LOCATION: 2CV ORDER 2300 STATUS: ADM IN REPORT#: [id number] SERVICE 0600 REASON: hypoxic ORDERING PHYSICIAN: LOBO RICKS PROCEDURE: CXR1VW - CHEST 1VW EXAM: CR Chest, 1 View (Portable, Supine). CLINICAL HISTORY: Chest pain. COMPARISON: CR Chest, 2 View ??? 08/30/2025 01:13 AM EDT. FINDINGS: LUNGS: Lungs are clear. No focal consolidation, pulmonary edema, or acute infiltrate. PLEURAL SPACES: No pleural effusion or pneumothorax. MEDIASTINUM: Cardiac size and mediastinal contours within normal limits. Right internal jugular central venous catheter remains in similar position with the tip projecting over the distal superior vena cava, unchanged from prior. BONES: No acute osseous abnormality. LINES/DEVICES: Right IJ central venous catheter as described. Monitoring leads noted. No new devices identified. IMPRESSION: * Stable position of right IJ central venous catheter with tip at distal SVC. * No pneumothorax or acute cardiopulmonary abnormality. * No significant interval change compared with 08/30/2025 . /[place] DICTATED BY: EDWIGE LEDESMA MD DATE: 08/31/251851 ELECTRONICALLY SIGNED BY: EDWIGE LEDESMA MD DATE: 08/31/251851 PATIENT: DALLAS BUCHANAN MR#: [id number] : 1970 SEX: F AGE: 55 LOCATION: 2CV ORDER 8 STATUS: ADM IN REPORT#: [id number] SERVICE 99 REASON: severe renal failure ORDERING PHYSICIAN: BRADEN CONTRERAS MD PROCEDURE: RENAL - US RENAL SONOGRAM EXAM: RENAL AND URINARY BLADDER ULTRASOUND Technique: Grayscale and color Doppler sonography of both kidneys and the urinary bladder was performed. Study quality is adequate. Evaluation of the bladder and ureteral jets is limited by decompression from an indwelling catheter. Clinical Information: Severe renal failure. Findings: Right kidney: Measures 10.3 ??? 5.3 ??? 4.2 centimeters. Renal cortical thickness and echogenicity are within expected limits for technique. No focal mass is identified. No hydronephrosis. No renal calculi. No perinephric fluid collection. Left kidney: Measures 11.0 ??? 4.8 ??? 3.2 centimeters. The renal parenchyma is diffusely increased in echogenicity relative to the adjacent liver and spleen. No focal mass is identified. No hydronephrosis. No renal calculi. No perinephric fluid collection. Urinary bladder: Decompressed with a Dueñas catheter in situ. Bladder wall measures approximately 3 millimeters, which may appear relatively thick due to underdistention. No intraluminal mass or debris is identified on the limited evaluation. Impression: * Left kidney demonstrates increased parenchymal echogenicity, a nonspecific finding commonly associated with medical renal disease in the setting of renal failure. * No hydronephrosis or renal calculi identified bilaterally. * Decompressed urinary bladder with Dueñas catheter in place; apparent wall thickening likely related to underdistention. /[place] DICTATED BY: EDWIGE LEDESMA MD DATE: 08/29/252248 ELECTRONICALLY SIGNED BY: EDWIGE LEDESMA MD DATE: 08/29/252248 PATIENT: DALLAS BUCHANAN MR#: [id number] : 1970 SEX: F AGE: 55 LOCATION: 2CV ORDER 1540 STATUS: ADM IN REPORT#: [id number] SERVICE 153 REASON: central line placement ORDERING PHYSICIAN: LOBO RICKS PROCEDURE: CXR1VW - CHEST 1VW EXAM: CR Chest, 2 View. CLINICAL HISTORY: central line placement COMPARISON: None provided. FINDINGS: Right IJ central venous catheter tip projects at the distal SVC. Right peripheral line overlies expected location of the right axillary vessels. LUNGS: The lungs show no infiltrate or other acute finding. Mild left basilar atelectasis. PLEURAL SPACES: No pleural effusion or pneumothorax. MEDIASTINUM: Cardiac size and mediastinal contours within normal limits. BONES: No aggressive appearing osseous lesion seen. Pigtail drainage catheter overlies the right upper quadrant. IMPRESSION: 1. Right IJ central venous catheter tip appropriately positioned in the distal SVC. 2. No acute cardiopulmonary findings. /[place] DICTATED BY: ELDON MILLER Jr., MD DATE: 08/29/251744 ELECTRONICALLY SIGNED BY: ELDON MILLER Jr., MD DATE: 08/29/251744 PATIENT: DALLAS BUCHANAN MR#: [id number] : 1970 SEX: F AGE: 55 LOCATION: 2CV ORDER 9 STATUS: ADM IN REPORT#: [id number] SERVICE 7 REASON: coffee ground emesis, hx of abdominal drain, nausea, vomiting, hx of cirrho ORDERING PHYSICIAN: BRADEN CONTRERAS MD PROCEDURE: ABD PEL WO - CT ABDOMEN/PELVIS W/O CONTRAST EXAM: CT Abdomen and Pelvis Without IV contrast CLINICAL HISTORY: coffee ground emesis, hx of abdominal drain, nausea, vomiting, hx of cirrho TECHNIQUE: Axial computed tomography images of the abdomen and pelvis without intravenous contrast. CONTRAST: No IV contrast. COMPARISON: Study dated 08/23/25. FINDINGS: LUNG BASES: Tiny calcified nodules in the posterior basal segment of the right lower lobe. There is mild dependent airspace disease within the bilateral lower lobes that is presumed to reflect atelectasis. No pleural effusions are seen. LIVER: There is cirrhotic hepatic morphology. Several small esophageal varices are noted. GALLBLADDER AND BILE DUCTS: The gallbladder is decompressed with a cholecystostomy tube in place. No biliary ductal dilatation is evident. PANCREAS: Unremarkable. SPLEEN: 2.7 x 2.2 x 5.1 cm infrasplenic collection with adjacent fat stranding and pigtail tube in place. ADRENAL GLANDS: Unremarkable. KIDNEYS, URETERS, AND BLADDER: The kidneys appear within normal limits. There is no hydronephrosis or hydroureter. No urinary calculi are seen. Dueñas's bulb in the urinary bladder with few air foci. STOMACH AND BOWEL: 2.4 cm ileostomy defect in the right iliac fossa and postoperative changes in the bowel loops. No evidence of bowel obstruction. No evidence suggesting enteritis or colitis. APPENDIX: No evidence of acute appendicitis on CT examination. PERITONEUM: No free fluid. No free air. LYMPH NODES: No lymphadenopathy is evident. REPRODUCTIVE: Unremarkable as visualized. VASCULATURE: No evidence of abdominal aortic aneurysm. BONES: No aggressive appearing osseous lesion. No acute osseous pathology evident. Mild degenerative changes in the spine. IMPRESSION: 1. Cirrhotic hepatic morphology. Several small esophageal varices are noted. 2. 2.7 x 2.2 x 5.1 cm infrasplenic collection with adjacent fat stranding and pigtail tube in place. 3. Cholecystostomy tube in decompressed gallbladder. 4. Ileostomy in right iliac fossa with postoperative changes. /[place] DICTATED BY: ELDON MILLER Jr., MD DATE: 08/29/251619 ELECTRONICALLY SIGNED BY: ELDON MILLER Jr., MD DATE: 08/29/251619 PATIENT: DALLAS BUCHANAN MR#: [id number] : 1970 SEX: F AGE: 55 LOCATION: EDHIP ORDER 6 STATUS: ADM IN REPORT#: [id number] SERVICE 5 REASON: sob ORDERING PHYSICIAN: MILAD WYNN MD PROCEDURE: CXR1VW - CHEST 1VW EXAM: CR Chest, 1 View. CLINICAL HISTORY: sob COMPARISON: None provided. FINDINGS: LUNGS: There is no mass, infiltrate, or acute pulmonary abnormality. Mild left basilar atelectasis and/or parenchymal scarring. PLEURAL SPACES: No evidence of pleural effusion or pneumothorax. MEDIASTINUM: Cardiac size and mediastinal contours within normal limits. BONES: No aggressive appearing osseous lesion seen. IMPRESSION: No acute cardiopulmonary pathology is evident. /[place] DICTATED BY: ELDON MILLER Jr., MD DATE: 08/29/251103 ELECTRONICALLY SIGNED BY: ELDON MILLER JDATE: 08/29/251103 ASSESSMENT: Severe hyperkalemia Anemia Acute renal failure Hyponatremia Acute upper GI bleeding- Hematemesis, dark output from ileostomy bag, POA, Improving Acute DVT of right axillary vein and right cephalic vein High output from ileostomy bag, not POA Hemorrhagic shock versus hypovolemic shock, POA, Resolved Hypovolemic hypochloremic hyponatremia, POA, Resolved Severe hyperkalemia, POA, Resolved Hyperammonemia, POA, Improving Lactic acidosis, POA, Resolved Hyperphosphatemia, POA, Resolved Starvation Ketoacidosis, POA Rule out occult sepsis, POA Recent extended hospitalization in [facility], 07/20/2025- 08/25/2025 for sepsis, acute abdomen, POA Severe Dehydration, POA, Improving History of esophageal varices, POA Acute Decompensated liver cirrhosis, POA Hx of acute cholecystitis, s/p cholecystostomy tube placement on 08/02/2025. Perisplenic abscess, s/p CT-guided drainage placement on 08/09/2025. 2.7 x 2.2 x 5.1 cm infrasplenic collection History of gastritis, POA Hx of Generalized peritonitis with ESBL E coli infection, POA Moderate Protein calorie malnutrition POA History of bilious peritonitis with small colonic anastomosis perforation s/p diagnostic laparoscopy, abdominal washout, ileostomy creation by Dr. Jhaveri, 07/21/2025 Hx of DM II, POA Recent colovesical fistula repair with sigmoid colon resection and anastomosis on PLAN: Labs, diagnostic, radiologic exams reviewed and interpreted by myself and supervising physician. We have reviewed external records in detail Continue with the Eliquis Continue to monitor hemoglobin. BiPAP as necessary, for respiratory distress Monitor blood pressure adjust medication doses as needed Avoid hypotensive episodes May use Dilaudid 0.5 mg IV every 6 hours as needed for severe pain Monitor blood sugars Strict intake, output, and daily weight should be monitored Please renally adjust medications Avoid nephrotoxic and nonsteroidal drugs Avoid contrast if possible Will continue to monitor renal function, anemia, electrolytes Treatment plan discussed with patient Questions were answered We have discussed with the other team physicians in detail about the care plan We will continue to monitor the patient closely ATTESTATION BY PHYSICIAN I have seen and examined the patient. I reviewed the documentation, medical deci corina making, and treatment plan as noted by the mid-level provider above. I agree with the findings and plan of care. CIELO PORTILLO MD, [facility] Sep 16, 2025 15:03
[2025-09-16 16:00] VITALS: BP 134/64; PULSE 106; RESP 18; TEMP 98.1
--- NOTE | 2025-09-16 16:45 | PN ---
GASTROENTEROLOGY PROGRESS NOTE Date of Visit: Sep 16, 2025 Time of Visit: 16:45 Events / Notes: No acute events overnight. Patient underwent EGD and was found to have small esophageal varices, scar in the lower 3rd of the esophagus, and portal hypertensive gastropathy. Normal examined duodenum. She has bleeding in ostomy. Repeat EGD without stigmata of bleeding. Review of Systems: CONSTITUTIONAL: No malaise or change in sensation of wellbeing. ENMT: No rhinorrhea, otorrhea, sinus pain, ear ache. CARDIOVASCULAR: No angina, palpitations, orthopnea or paroxysmal dyspnea. RESPIRATORY: No SOB. GASTROINTESTINAL: No abdominal pain, nausea, vomiting, diarrhea, hematemesis, melena or change in the patient's habitual bowel movements consistency/number. GENITOURINARY: No dysuria, hematuria or change in bladder continence. MUSCULOSKELETAL: No new muscle pain or decrease in muscular strength. No new joint swelling, redness or tenderness. SKIN: No new rash. Physical Exam: GEN: Awake, alert, oriented in person, time and place, and in no acute distress. HEENT: No rhinorrhea. Oral mucosa is moist. CHEST: Lung auscultation revealed normal breath sounds bilaterally. CARDIAC:Heart sounds are regular. ABD: Soft, non-tender and not distended. No peritoneal signs on palpation. Normal bowel sounds. Ileostomy in place with watery output. EXT: No cyanosis or clubbing. No edema. SKIN: Intact. No rashes. NEURO: Alert and oriented to name, place and person.No focal motor deficits. Normal speech. Vital Signs (last 8hr) Date Time Temp Pulse Resp B/P (MAP) Pulse Ox O2 Delivery O2 Flow Rate FiO2 09/16/25 12:00 98.1 100 18 112/54 96 Room Air Laboratory: [ ] Laboratory: Test 09/16/25 13:32 09/16/25 12:30 09/16/25 06:55 09/15/25 08:49 Range/Units Urine Random Sodium < 13 L 40-220 mmol/l Urine Random Potassium 23 L 25-125 mmol/L Urine Random Chloride 30 L 110-250 mmol/L Whole Blood Glucose 191 #H 70-110 MG/DL White Blood Count 4.5 L 4.8-10.8 K/uL Red Blood Count 2.72 L 4.00-5.50 MIL/uL Hemoglobin 8.5 L 12.0-16.0 g/dL Hematocrit 27.1 L 36-48 % Mean Corpuscular Volume 99.6 H 79-99 fL Mean Corpuscular Hemoglobin 31.3 27.0-33.0 pg Mean Corpuscular Hemoglobin Concent 31.4 L 32.0-36.0 g/dL Red Cell Distribution Width 19.6 H 11.0-15.5 % Platelet Count 190 130-400 K/uL Mean Platelet Volume 9.5 7.5-10.5 fL Nucleated Red Blood Cells 0.0 0.0-0.19 % Red Blood Cell Morphology See comments Sodium Level 138 136-145 mmol/L Potassium Level 4.5 3.5-5.1 mmol/L Chloride Level 109 101-111 mmol/L Carbon Dioxide Level 21 21-32 mmol/L Blood Urea Nitrogen 13 7-18 mg/dL Creatinine 0.9 0.5-1.0 mg/dL Glomerular Filtration Rate Calc 75 >90 mL/min Random Glucose 99 70-105 mg/dL Total Calcium 8.4 L 8.5-10.1 mg/dL Lactic Acid Level 2.0 0.8-2.5 mmol/L C-Reactive Protein, Quantitative 4.60 H 0.5-3.0 mg/L Test 09/15/25 04:33 Range/Units Immature Granulocyte % (Auto) 0.5 0-1 % Neutrophils (%) (Auto) 52.1 40.0-77.0 % Lymphocytes (%) (Auto) 32.0 21.0-51.0 % Monocytes (%) (Auto) 7.8 3.0-13.0 % Eosinophils (%) (Auto) 6.9 0.0-8.0 % Basophils (%) (Auto) 0.7 0.0-5.0 % Neutrophils # (Auto) 2.2 1.8-7.7 K/uL Lymphocytes # (Auto) 1.4 1.0-4.8 K/uL Monocytes # (Auto) 0.3 0.1-1.0 K/uL Eosinophils # (Auto) 0.29 0.00-0.70 K/uL Basophils # (Auto) 0.03 0.00-0.20 K/uL Absolute Immature Granulocyte (auto 0.02 0-1 K/uL Current Medications Medications (Trade) Dose Ordered Sig/Gregory Route PRN Reason Start Time Stop Time Status Last Admin Dose Admin Acetaminophen (TYLenol 325MG TAB) 650 mg Q6H PRN PO MILD PAIN (1-3) 08/29/25 10:00 09/28/25 09:59 09/16/25 13:04 650 MG Acetaminophen/ Hydrocodone Bitart (NORco 5/325MG) 2 tab Q4H PRN PO SEVERE PAIN (7-10) 09/08/25 09:30 09/13/25 09:29 DC 09/13/25 00:59 2 TAB Albuterol (DUOneb) 1 udvial Q6H PRN IH SHORTNESS OF BREATH 08/29/25 10:00 09/28/25 09:59 Apixaban (EliquIS) 5 mg BID PO 09/15/25 09:00 10/15/25 08:59 Hold 09/16/25 07:44 5 MG Apixaban (EliquIS) 5 mg BID PO 09/08/25 21:00 09/13/25 08:14 DC 09/11/25 20:32 5 MG Apixaban (EliquIS) 10 mg BID PO 09/07/25 22:00 09/08/25 01:42 DC 09/07/25 22:06 10 MG Apixaban (EliquIS) 10 mg BID PO 09/08/25 09:30 09/08/25 10:13 DC Atorvastatin Calcium (LIPItor 10MG) 5 mg HS PO 09/05/25 21:00 10/05/25 20:59 09/15/25 21:51 5 MG Calcium Gluconate (Calcium Gluc 1gm Vial) 1 gm ONCE IV 08/29/25 09:30 08/29/25 09:23 DC Cyclobenzaprine HCl (Cyclobenzaprine HCl) 5 mg TID PRN PO muscle spasms 09/05/25 11:00 10/05/25 10:59 Dextrose (D50w) 50 ml AD PRN IV HYPOGLYCEMIA PROTOCOL 08/29/25 10:00 09/28/25 09:59 Dextrose/Sodium Chloride 1,000 ml @ 0 mls/hr AD IV 08/29/25 12:30 08/29/25 16:05 DC Duloxetine HCl (CymbALTA 30 mg CAP) 30 mg BID PO 09/03/25 21:00 09/09/25 11:10 DC 09/09/25 10:37 30 MG Enoxaparin Sodium (Lovenox (Pharmacy To Dose)) 1 unit Q12H SQ 09/06/25 13:30 09/06/25 13:21 DC Enoxaparin Sodium (Lovenox 60mg) 60 mg Q12H SQ 09/06/25 13:30 09/07/25 15:03 DC 09/07/25 14:29 60 MG Folic Acid (FOLic ACID 1 MG TABLET) 1 mg DAILY PO 09/08/25 09:00 10/08/25 08:59 09/16/25 07:44 1 MG Glucagon (Glucagon 1mg Kit) 1 mg AD PRN IM HYPOGLYCEMIA PROTOCOL 08/29/25 10:00 09/28/25 09:59 Home Med (Home Medication) (Medroxyprogesterone Acetate (Provera) 1 TAB) DAILY PO 09/06/25 09:00 10/06/25 08:59 Insulin Human Regular (humuLIN R 100 UNIT/ML 3ML) 5 unit ONCE IV 08/29/25 09:30 08/29/25 09:25 DC Insulin Human Regular (humuLIN R 100 UNIT/ML 3ML) INSULIN SLIDING SCAL... ACHS SQ 08/29/25 11:30 09/28/25 11:29 09/16/25 13:08 2 UNIT Insulin Human Regular 100 unit/ Sodium Chloride 101 ml @ 0 mls/hr PROTOCOL IV 08/29/25 12:30 08/29/25 16:05 DC Lactated Ringer's 1,000 ml @ 100 mls/hr Q10H IV 09/06/25 00:00 09/06/25 18:44 DC 09/06/25 08:35 100 MLS/HR Lactulose (Constulose 20gm/ 30ml Udcup) 20 gm BID PO 09/05/25 21:00 09/12/25 16:49 DC 09/11/25 08:16 20 GM Lactulose (Constulose 20gm/ 30ml Udcup) 20 gm DAILY PO 09/12/25 17:00 09/12/25 17:00 DC Lactulose (Constulose 20gm/ 30ml Udcup) 20 gm TID PO 09/01/25 14:00 09/05/25 10:44 DC 09/05/25 08:06 20 GM Magnesium Sulfate 50 ml @ 0 mls/hr PROTOCOL IV 08/29/25 12:30 08/29/25 16:05 DC Magnesium Sulfate 50 ml @ 0 mls/hr PROTOCOL IV 08/30/25 10:00 09/29/25 09:59 09/13/25 05:22 25 MLS/HR Magnesium Sulfate 50 ml @ 0 mls/hr PROTOCOL IV 09/02/25 13:30 09/02/25 13:04 DC Magnesium Sulfate 50 ml @ 0 mls/hr PROTOCOL IV 09/03/25 08:00 09/03/25 07:43 DC Meropenem (Merrem 500mg) 500 mg Q24H IVPB 08/29/25 10:00 08/31/25 09:59 DC 08/30/25 09:46 500 MG Meropenem (Merrem 500mg) 500 mg Q24H IVPB 08/31/25 23:30 09/10/25 02:29 DC 09/09/25 23:40 500 MG Midodrine (PROAMatine 5 MG TABLET) 5 mg BID PO 09/10/25 09:00 09/11/25 07:21 DC 09/10/25 21:42 5 MG Midodrine (PROAMatine 5 MG TABLET) 5 mg DAILY20 PO 09/11/25 20:00 09/12/25 09:00 DC 09/11/25 20:31 5 MG Midodrine (PROAMatine 5 MG TABLET) 5 mg TID PO 09/08/25 21:00 09/10/25 08:05 DC 09/09/25 15:24 5 MG Midodrine (PROAMatine 5 MG TABLET) 10 mg BID PO 09/01/25 09:00 08/31/25 18:36 DC Midodrine (PROAMatine 5 MG TABLET) 10 mg TID PO 09/01/25 09:00 09/08/25 17:20 DC 09/08/25 16:16 10 MG Mirtazapine (REMeron 15 MG TAB) 7.5 mg HS PO 09/09/25 21:00 09/12/25 11:05 DC 09/11/25 20:31 7.5 MG Mirtazapine (REMeron 15 MG TAB) 15 mg HS PO 09/12/25 21:00 10/12/25 20:59 09/15/25 21:51 15 MG Morphine Sulfate (morPHINE 2MG SYG) 0.5 mg Q4H PRN IVP SEVERE PAIN (7-10) 09/07/25 13:30 09/08/25 09:11 DC 09/08/25 04:27 0.5 MG Morphine Sulfate (morPHINE 2MG SYG) 0.5 mg Q4H PRN IVP SEVERE PAIN (7-10) 09/08/25 18:00 09/09/25 11:10 DC Morphine Sulfate (morPHINE 2MG SYG) 1 mg Q4H PRN IVP SEVERE PAIN (7-10) 09/05/25 13:30 09/07/25 11:35 DC 09/06/25 23:40 1 MG Morphine Sulfate (morPHINE 2MG SYG) 2 mg Q4H PRN IVP SEVERE PAIN (7-10) 09/01/25 05:30 09/05/25 13:19 DC 09/05/25 04:28 2 MG Norepinephrine Bitartrate 32 mg/ Sodium Chloride 250 ml @ 0 mls/hr Q0M STAT IV 08/29/25 21:01 08/29/25 21:07 DC 08/29/25 21:13 0 MLS/HR Octreotide Acetate 1250 mcg/ Sodium Chloride 250 ml @ 0 mls/hr PROTOCOL IV 08/29/25 08:30 09/01/25 10:32 DC 08/31/25 10:18 5 MLS/HR Ondansetron HCl (zoFRAN 4MG INJ) 4 mg Q6H PRN IVP NAUSEA/VOMITING 08/29/25 09:30 09/28/25 09:29 09/16/25 13:55 4 MG Pantoprazole Sodium (PROTonix 40MG INJ) 40 mg BID IVP 09/01/25 21:00 09/03/25 14:32 DC 09/03/25 09:16 40 MG Pantoprazole Sodium (PROTonix 40MG INJ) 40 mg BID IVP 09/06/25 09:00 10/06/25 08:59 09/16/25 07:44 40 MG Pantoprazole Sodium (PROTonix 40MG TAB) 40 mg DAILY PO 09/04/25 09:00 09/06/25 00:03 DC 09/05/25 08:06 40 MG Pantoprazole Sodium 80 mg/ Sodium Chloride 100 ml @ 10 mls/hr Q10H IV 08/29/25 08:30 09/01/25 10:32 DC 09/01/25 05:50 10 MLS/HR Pharmacy Profile Note (Pharmacy Communication) 1 each ONCE MISC 08/29/25 09:30 08/29/25 09:35 DC Pharmacy Profile Note (Pharmacy Communication) 1 each ONCE MISC 08/31/25 23:30 08/31/25 23:17 DC Potassium Chloride 100 ml @ 50 mls/hr AD PRN IV POTASSIUM PROTOCOL 08/29/25 12:30 09/28/25 12:29 09/14/25 17:44 50 MLS/HR Potassium Chloride 100 ml @ 100 mls/hr AD PRN IV POTASSIUM PROTOCOL 09/15/25 16:30 09/15/25 16:28 DC Potassium Chloride (K-Dur/Klor-Con 20meq) 20 meq AD PRN PO POTASSIUM PROTOCOL 09/15/25 16:30 10/15/25 16:29 09/15/25 19:31 20 MEQ Potassium Chloride (KCl 10% Elixir 20meq/15ml) 20 meq AD PRN PO POTASSIUM PROTOCOL 09/15/25 16:30 10/15/25 16:29 Psyllium Hydrophilic Mucilloid (Metamucil) 1 tbs BID PO 09/12/25 17:00 09/12/25 18:00 DC 09/12/25 17:19 1 TBS Psyllium Hydrophilic Mucilloid (Metamucil) 1 tbs TID PO 09/04/25 14:00 09/12/25 16:49 DC 09/11/25 20:32 1 TBS Quetiapine Fumarate (SEROquel 25 mg TAB) 25 mg ONCE PRN PO INSOMNIA 09/11/25 21:00 09/13/25 08:14 DC 09/13/25 00:58 25 MG Sodium Bicarbonate 150 meq/Dextrose 1,150 ml @ 125 mls/hr Q9H12M IVP 08/29/25 10:00 08/30/25 10:12 DC 08/30/25 08:07 125 MLS/HR Sodium Bicarbonate (Sodium Bicarbonate) 1,300 mg QID PO 09/10/25 17:00 10/10/25 16:59 09/16/25 13:00 1,300 MG Sodium Bicarbonate (Sodium Bicarbonate) 1,300 mg TID PO 09/07/25 14:00 09/08/25 18:00 DC 09/08/25 16:15 1,300 MG Sodium Bicarbonate (Sodium Bicarbonate) 1,300 mg TID PO 09/09/25 09:00 09/10/25 12:00 DC 09/10/25 10:31 1,300 MG Sodium Chloride 250 ml @ 0 mls/hr AD IV 08/29/25 17:30 09/28/25 17:29 Sodium Chloride 1,000 ml @ 0 mls/hr Q0M IV 08/29/25 16:00 08/29/25 16:03 DC Sodium Chloride 1,000 ml @ 0 mls/hr Q0M IV 08/29/25 16:00 09/01/25 08:01 DC 08/29/25 16:10 500 MLS/HR Sodium Chloride 1,000 ml @ 125 mls/hr Q8H IV 08/29/25 09:30 08/29/25 09:57 DC Sodium Chloride 1,000 ml @ 150 mls/hr Q6H40M IV 08/29/25 18:30 09/01/25 09:29 DC 08/31/25 16:16 150 MLS/HR Sodium Chloride 1,000 ml @ 200 mls/hr PROTOCOL IV 08/29/25 12:30 08/29/25 16:05 DC Sodium Chloride 1,000 ml @ 999 mls/hr Q1H1M IV 08/29/25 09:30 08/29/25 09:06 DC Thiamine HCl (Vitamin B-1) 200 mg Q12H IVP 08/29/25 09:30 09/02/25 09:30 DC 09/02/25 08:56 200 MG Vitamin B Complex (Vitamin B-12) 1,000 mcg DAILY PO 09/08/25 09:00 10/08/25 08:59 09/16/25 07:44 1,000 MCG Diagnostics / Radiology: [COPY/PASTE HERE IF NO REPORTS PLEASE DELETE SECTION] Assessment: [Esophageal varices Liver cirrhosis Ileostomy status Hypertension Type 2 diabetes ] Plan: Continue GI prophylaxis Advance diet as tolerated Avoid NSAIDs Antireflux measures Monitor H&H and transfuse as needed Call with questions, concerns or change in clinical status Patient to follow-up at clinic post discharge Thank you for this consult STEPHEN THAO [facility] Sep 16, 2025 16:45
[2025-09-16 20:00] VITALS: BP 130/61; PULSE 100; RESP 17; TEMP 97.8
--- NOTE | 2025-09-16 22:18 | NUR ---
ILEOSTOMY ILEOSTOMY BAG LEAKING ILEOSTOMY APPLIANCE REPLACED USING PATIENT'S OWN SUPPLY PER PATIENT REQUEST ABDOMINAL BINDER NOT REPLACED PATIENT DOES NOT WISH TO HAVE IT PUT ON AT THIS TIME STATES IT IS CAUSING IRRITATION AND ITCHING TO HER ABDOMEN
[2025-09-17] VITALS: BP 128/68; PULSE 87; RESP 16; TEMP 98.3
--- NOTE | 2025-09-17 01:32 | HMCIMG ---
STUDY: VENOUS DOPPLER ULTRASOUND OF THE RIGHT UPPER EXTREMITY CLINICAL INFORMATION: History of right upper limb deep venous thrombosis; evaluate for residual or recurrent thrombosis. TECHNIQUE: Duplex Doppler ultrasound of the deep and superficial venous system of the right upper extremity was performed using grayscale imaging, color Doppler, and spectral waveform analysis. COMPARISON: Venous Doppler ultrasound of the right upper extremity from 09/05 at 18:43 EST. FINDINGS: RIGHT UPPER EXTREMITY VENOUS SYSTEM: The right cephalic vein is noncompressible with intraluminal echogenic thrombus and absent color flow, consistent with thrombosis. The right axillary, subclavian, brachial, basilic, and visualized internal jugular veins are patent and fully compressible with normal color filling and phasic, augmentable venous Doppler waveforms. No additional intraluminal echogenic thrombus is identified in the remaining evaluated deep veins of the right upper extremity. SOFT TISSUES: Surrounding soft tissues are unremarkable without focal fluid collection. IMPRESSION: * Thrombosis of the right cephalic vein. * No sonographic evidence of deep venous thrombosis in the remaining evaluated veins of the right upper extremity. * Compared with the venous Doppler ultrasound of the right upper extremity from 09/05 at 18:43 EST, previously described acute thrombosis of the right axillary vein has resolved, with persistent thrombosis of the right cephalic vein. /[place]
[2025-09-17 03:48] VITALS: BP 122/72; PULSE 92; RESP 16; TEMP 97.8
[2025-09-17 06:36] LABS: IMMATURE GRANULOCYTE ABSOLUTE 0.01 K/uL (0-1); NUCLEATED RED BLOOD CELLS 0.0 % (0.0-0.19); PLATELET COUNT (AUTO) 172 K/uL (130-400); RED BLOOD CELL COUNT(AUTO) 2.68 MIL/uL (4.00-5.50); RED CELL DISTRIBUTION WIDTH 18.9 % (11.0-15.5); WHITE BLOOD COUNT (AUTO) 3.6 K/uL (4.8-10.8)
[2025-09-17 07:38] LABS: CREATININE 1.0 mg/dL (0.5-1.0); GLOMERULAR FILTR. RATE CALC 66.0 mL/min (>90); GLUCOSE,RANDOM 92.0 mg/dL (70-105); SODIUM SERUM 139.0 mmol/L (136-145); UREA NITROGEN, BLOOD 15.0 mg/dL (7-18)
[2025-09-17 08:00] VITALS: BP 109/60; PULSE 97; RESP 20; TEMP 97.4
--- NOTE | 2025-09-17 08:52 | DS ---
Discharge Summary Hospital Course Summary: The patient is a 50-year-old Singaporean speaking female with a past medical history significant for type 2 diabetes mellitus, liver cirrhosis, previous esophageal varices requiring banding in May 2025, and a history of robotic sigmoid resection with takedown of a colovesical fistula. She had been recently ho spitalized at [facility] from 07/20/2025 to 08/25/2025 for bilious peritonitis due to a 2 mm perforation at her anastomosis, requiring diagnostic laparoscopy, abdominal washout, drain placement, and a diverting loop ileostomy. She presented to our emergency department after discharge with nausea, vomiting, coffee-ground emesis, dark output in her ileostomy bag, and worsening weakness. Communication is facilitated with the help of nurse. In the ED she was found to be severely dehydrated with profound metabolic abnormalities, including hyponatremia (Na 117), hyperkalemia (K 7.0), high anion gap metabolic acidosis, and acute kidney injury (BUN 83, Cr 5.0). She was admitted to the ICU for management of severe CYNTHIA, metabolic acidosis (PH -7.28), electrolyte derangements, and concern for upper GI bleeding. She received a bicarbonate drip, vasopressor support (Levophed 0.2 mcg), and two sessions of hemodialysis, after which her renal function improved significantly and returned to baseline. Broad-spectrum antibiotics were initiated, though all cultures remained negative. GI was consulted, and the patient was started on octreotide and Protonix drip. EGD revealed small (<5 mm) esophageal varices with a healed prior banding site, portal hypertensive gastropathy (biopsied), and a normal duodenum. There was no active bleeding, and she remained hemodynamically stable with stable hemoglobin. Octreotide was discontinued and she was transitioned to oral Protonix. 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 Her cholecystostomy tube and splenic drain were both removed after imaging confirmed stability. She tolerated a GI soft diet, and PEG tube placement was deferred. Ileostomy output, initially high, improved with fiber supplementation, and nurses provided extensive education to the patient and her daughter. During the hospitalization, the patient developed swelling of the right upper extremity. Initial Doppler ultrasound showed concern for thrombosis involving the right axillary and cephalic veins. Hematology was consulted, and per Dr. Lozada recommendation, the patient was started on therapeutic Lovenox at 1 mg/kg with a plan to bridge to apixaban, beginning with apixaban 10 mg twice daily for 5 days, followed by apixaban 5 mg twice daily for a total duration of 3 months. However, a repeat Doppler ultrasound of the right arm demonstrated that the thrombus was confined only to the superficial cephalic vein with no evidence of deep venous thrombosis. Given her high bleeding risk from cirrhosis, portal hypertension, and prior episodes of suspected GI bleeding, the risks of full anticoagulation outweighed the benefits. Therefore, Lovenox was d iscontinued, and the planned apixaban bridge was also cancelled. She remained clinically stable, and her hemoglobin stayed unchanged following discontinuation. A second EGD was performed on 09/15/2025 for reassessment of varices and bleeding risk prior to anticoagulation. This EGD confirmed small esophageal varices (<5 mm), a healed post-banding scar, and portal hypertensive gastr opathy; no active bleeding was observed. The duodenum appeared normal. Biopsies of the gastric mucosa were obtained for evaluation. No endoscopic intervention was required, and the patient was cleared for diet advancement and discharge planning. Psychiatry was consulted for significant anxiety and insomnia related to her prolonged hospital course. Duloxetine was discontinued, and she was started on mirtazapine 15 mg nightly with PRN Seroquel for sleep, resulting in improved rest and decreased anxiety. Throughout her stay on the medical floor she remained hemodynamically stable, tolerated oral intake, and had no recurrence of hematemesis or bloody ileostomy output. By 09/16/2025, the patient was clinically stable for discharge. She denied abdominal pain, nausea, vomiting, bleeding, or dizziness. Her electrolytes and renal function remained normalized, her hemoglobin was stable, and she tolerated diet well. Her daughter expressed understandable anxiety regarding bleeding risk and ostomy care, and extensive education was provided. The patient and her daughter declined rehabilitation and preferred discharge home with home-based physical therapy and nursing support. All discharge instructions and precautions were reviewed in detail. The patient should follow up with Gastroenterology to review biopsy results, manage portal hypertensive gastropathy, and plan surveillance for esophageal erika ices. General Surgery follow-up is recommended for ostomy management and evaluation of mesenteric panniculitis and the possible porcelain gallbladder noted on imaging. She should follow up with Nephrology within one week to ensure continued stability of her renal function. Primary Care follow-up within 7 days is advised for medication reconciliation, repeat labs, and coordination of care. Psychiatry follow-up is recommended for ongoing management of anxiety and insomnia. Home health nursing for ostomy care reinforcement is strongly encouraged. At home, the patient should continue Protonix 40 mg twice daily, lactulose as prescribed, mirtazapine 15 mg nightly, fiber supplementation to thicken ileostomy output, and adequate hydration. She is no longer on Eliquis, and she was instructed to avoid NSAIDs and monitor closely for any signs of bleeding. Any hematemesis, melena, large-volume bleeding in her ileostomy bag, severe abdominal pain, chest pain, shortness of breath, severe dizziness, or syncope should prompt immediate emergency evaluation. Activity and ambulation are encouraged as tolerated. The patient was discharged home in stable condition with her daughter. Continue her current medications as prescribed, including Pantoprazole 40 mg twice daily, lactulose as directed, mirtazapine 15 mg at bedtime, Seroquel as needed for sleep, and fiber supplementation three times daily to manage leostomy output, atorvastatin 5 mg and sodium bicarbonate tablets. [employer] Musician(s): Nephrology consult: PROBLEMS: * Recent renal failure requiring dialysis. * The patient had underlying anemia. * Electrolyte problems. * Gastrointestinal bleeding. * Anxiety. * Deep vein thrombosis. * High output ileostomy. * Previous hemorrhagic shock. * Acidosis. PLAN: The patient is planned for EGD. Continued monitoring. The patient has previous cholecystostomy drain and previous splenic abscess drainage. We will follow up on renal function, electrolytes and overall ____. I have discussed with other team members. We will continue to monitor and follow closely. Telepsych: Assessment: Anxiety w/ insomnia Recommendations: -Patient is not currently suicidal, homicidal or psychotic and she does not require inpatient psychiatric admission at this time. -Continue Remeron and increase to 15 mg QHS. -Continue Seroquel 25 mg QHS PRN and offer it to her 30-60 mins after the Remeron if she is still awake and restless. If the 25 mg dose is too much and she feels groggy in the AM then try reducing to 12.5 mg QHS PRN. -Please make referrals to outpatient psychiatry and therapy after DC. -Psychiatry signing off. *15 mins was spent [id number] with patient and 25 mins was spent on chart review and documentation. MARYLU QUEEN DO Hematology IMPRESSION 1. Acute DVT of Right axillary vein 2. Iron Deficiency Anemia 3. Acute upper GI bleed, resolved 4. Liver cirrhosis 5. Prerenal CYNTHIA, resolved PLAN 1. Patient to be started on therapeutic dose of Lovenox 1mg/kg body wt q12 and recheck H&H in the morning and if stable can be transitioned to PO anticoagulation. 2.Peripheral blood smear shows microcytic hypochromic anemia consistent with iron deficiency anemia . There is no teardrop cell, pelger huet cell or rouleaux formation Cytoplasmic vacuolation seen in neutrophils. Platelet morphology and count within normal limits . 3. There is hypersegmented neutrophil. This patient will benefit from Folic acid 1 mg daily and Vitamin B12 1000 mcg daily Gastroenterology Assessment: [Concern for GI bleed anemia Liver cirrhosis Ileostomy status Hypertension Type 2 diabetes ] Plan: [ Case discussed with Dr. Adams. Plan for EGD once patient's status improves and is off pressors Recommend patient continue with Sandostatin drip Recommend patient continue with pantoprazole drip Please call with questions, concerns, and change in clinical status and any signs of any overt GI bleed Thank you for this consult. General surgery Assessment: 55-year-old female recently discharged from the hospital after being admitted for a postoperative anastomotic leak and a postoperative course complicated by perisplenic abscess and acute cholecystitis who has developed with a looks to be an upper GI bleed, dehydration, acute renal failure, metabolic acidosis. She does not have an acute surgical abdomen. Plan: Agree with supportive management of the upper GI bleed (serial H&Hs, Protonix and octreotide drip, resuscitation, a GI consult for evaluation with endoscopy) Agree with supportive management of dehydration, acute renal failure and metabolic acidosis (nephrology consult for hemodialysis,) We will trend ileostomy output Surgery to follow closely ( will discuss patient with my partner Dr. Gann) Critical care Severe sepsis with a multi organ dysfunction POA (SOFA Score 4 Points </33% mortality) Multifactorial Acute metabolic acidosis CYNTHIA FENa score 0.2% Prerenal POA Life-threatening hypokalemia POA Multifactorial Acute metabolic encephalopathy, POA GI bleed in the presence of esophageal varices Acute decompensated liver cirrhosis Hyperammonemia Hyponatremia Moderate protein malnutrition Severe dehydration Starvation ketosis Hyperglycemia in the presence of type 2 diabetes mellitus, POA 2.7 x 2.2 x 5.1 cm infrasplenic collection hx of acute cholecystitis, s/p cholecystostomy tube to right upper quadrant placement on 08/02/2025. Perisplenic abscess, s/p CT-guided drainage placement on 08/09/2025. History of bilious peritonitis with small colonic anastomosis perforation s/p diagnostic laparoscopy, abdominal washout, ileostomy creation by Dr. Gann, 07/21/2025 Gastritis Hx of Generalized peritonitis with ESBL E coli infection, POA Recent colovesical fistula repair with sigmoid colon resection and anastomosis on PLAN Trialysis catheter Continue ICU management Continue bicarb drip at 125 mL/hour Monitor anion gap Holding off on insulin drip due to likely patient has a starvation ketosis. If no improvement tomorrow we may re-evaluate for the need of insulin drip at this time not likely DKA A1c 5.5 Follow Nephrology recommendations Follow General surgery recommendations Monitor electrolytes and cover accordingly. The patient NPO until more alert Aspiration precautions Follow GI recommendations Monitor ammonia levels NEURO: Minimize central acting medications as possible. Fall Precautions. Well lighted room through the day and minimize interruptions through the night to prevent acute delirium. PULMONARY: Supplemental 02 as needed Titrate Fio2 to keep Spo2 > or = 90% DuoNebs and CPT as needed IS hourly while awake for pulmonary hygiene Out of bed to chair as tolerated CARDIOVASCULAR: Follow hemodynamics. Titrate vasopressor to keep MAP >65 or systolic blood pressure >95mmHg Drips: Sodium bicarb drip LINES: PIV Transferred to right IJ Right upper quadrant cholecystostomy tube Left upper quadrant accordion drain Ileostomy to right lower quadrant GI & NUTRITION: Continue nutritional support Aspirations precautions Prokinetic agents and laxatives as needed KIDNEYS & ELECTROLYTES: Strict monitoring of intake and output Daily weights Avoid nephrotoxic agents Monitor electrolytes and replace as needed Goal urine output of 30mL/hr or 0.5mL/kg/hr Follow Nephrology recommendations Place Trialysis catheter per Nephrology recommendation next Case Dueñas catheter ENDOCRINE: Maintain blood glucose between 100-180 at all times. Insulin sliding scale for blood glucose management INFECTIOUS DISEASE: Trend temperature. Hull-culture if febrile. Micro: [ ] Blood culture Urine culture Antibiotics: [ Meropenem] HEMATOLOGY & COAGULATION: Monitor H&H. Keep Hgb > 7 Transfuse 1 unit of PRBC for Hgb < 7 Transfuse 1 pack of platelets of platelets < 20, 000 Watch for any signs and symptoms of bleeding SKIN: Pressure ulcer prevention per facility protocol Rehab: PT/OT Prophylaxis: GI: [Protonix drip Sandostatin ] DVT: [ No chemical SCDs due to GI bleed, SCDs for now Code Status: Full Resuscitation Disposition: ICU ] Other: Critical care time This patient required multiple bedside visits to manage the patient, review blood gases, coordinate with respiratory, nurses, talk to Nephrology and Primary team, review radiology exams, talk to the family members and discuss advanced directives. I personally spent 120 minutes of critical care time in treatment of this patient. This includes patient management, time at bedside, time reviewing tests, labs, appropriate images and studies, documentation, and patient care coordination. This time excludes separately billable procedures. Procedure(s): [place] [address] [id number] IMAGING REPORT Signed PATIENT: DALLAS BUCHANAN MR#: [id number] : 1970 SEX: F AGE: 55 LOCATION: EDHIP ORDER 6 STATUS: ADM IN REPORT#: [id number] SERVICE 5 REASON: sob ORDERING PHYSICIAN: MILAD WYNN MD PROCEDURE: CXR1VW - CHEST 1VW EXAM: CR Chest, 1 View. CLINICAL HISTORY: sob COMPARISON: None provided. FINDINGS: LUNGS: There is no mass, infiltrate, or acute pulmonary abnormality. Mild left basilar atelectasis and/or parenchymal scarring. PLEURAL SPACES: No evidence of pleural effusion or pneumothorax. MEDIASTINUM: Cardiac size and mediastinal contours within normal limits. BONES: No aggressive appearing osseous lesion seen. IMPRESSION: No acute cardiopulmonary pathology is evident. /[place] DICTATED BY: ELDON MILLER Jr., MD DATE: 08/29/251103 ELECTRONICALLY SIGNED BY: ELDON MILLER Jr., MD DATE: 08/29/251103 [address] [place] [address] IMAGING REPORT Signed PATIENT: DALLAS BUCHANAN MR#: [id number] : 1970 SEX: F AGE: 55 LOCATION: 2CV ORDER 9 STATUS: ADM IN REPORT#: [id number] SERVICE 7 REASON: coffee ground emesis, hx of abdominal drain, nausea, vomiting, hx of cirrho ORDERING PHYSICIAN: BRADEN CONTRERAS MD PROCEDURE: ABD PEL WO - CT ABDOMEN/PELVIS W/O CONTRAST EXAM: CT Abdomen and Pelvis Without IV contrast CLINICAL HISTORY: coffee ground emesis, hx of abdominal drain, nausea, vomiting, hx of cirrho TECHNIQUE: Axial computed tomography images of the abdomen and pelvis without intravenous contrast. CONTRAST: No IV contrast. COMPARISON: Study dated 08/23/25. FINDINGS: LUNG BASES: Tiny calcified nodules in the posterior basal segment of the right lower lobe. There is mild dependent airspace disease within the bilateral lower lobes that is presumed to reflect atelectasis. No pleural effusions are seen. LIVER: There is cirrhotic hepatic morphology. Several small esophageal varices are noted. GALLBLADDER AND BILE DUCTS: The gallbladder is decompressed with a cholecystostomy tube in place. No biliary ductal dilatation is evident. PANCREAS: Unremarkable. SPLEEN: 2.7 x 2.2 x 5.1 cm infrasplenic collection with adjacent fat stranding and pigtail tube in place. ADRENAL GLANDS: Unremarkable. KIDNEYS, URETERS, AND BLADDER: The kidneys appear within normal limits. There is no hydronephrosis or hydroureter. No urinary calculi are seen. Dueñas's bulb in the urinary bladder with few air foci. STOMACH AND BOWEL: 2.4 cm ileostomy defect in the right iliac fossa and postoperative changes in the bowel loops. No evidence of bowel obstruction. No evidence suggesting enteritis or colitis. APPENDIX: No evidence of acute appendicitis on CT examination. PERITONEUM: No free fluid. No free air. LYMPH NODES: No lymphadenopathy is evident. REPRODUCTIVE: Unremarkable as visualized. VASCULATURE: No evidence of abdominal aortic aneurysm. BONES: No aggressive appearing osseous lesion. No acute osseous pathology evident. Mild degenerative changes in the spine. IMPRESSION: 1. Cirrhotic hepatic morphology. Several small esophageal varices are noted. 2. 2.7 x 2.2 x 5.1 cm infrasplenic collection with adjacent fat stranding and pigtail tube in place. 3. Cholecystostomy tube in decompressed gallbladder. 4. Ileostomy in right iliac fossa with postoperative changes. /[place] DICTATED BY: ELDON MILLER Jr., MD DATE: 08/29/251619 ELECTRONICALLY SIGNED BY: ELDON MILLER Jr., MD DATE: 08/29/251619 [place] [address] [address] IMAGING REPORT Signed PATIENT: DALLAS BUCHANAN MR#: [id number] : 1970 SEX: F AGE: 55 LOCATION: 2CV ORDER 154 STATUS: ADM IN REPORT#: [id number] SERVICE 153 REASON: central line placement ORDERING PHYSICIAN: LOBO RICKS PROCEDURE: CXR1VW - CHEST 1VW EXAM: CR Chest, 2 View. CLINICAL HISTORY: central line placement COMPARISON: None provided. FINDINGS: Right IJ central venous catheter tip projects at the distal SVC. Right peripheral line overlies expected location of the right axillary vessels. LUNGS: The lungs show no infiltrate or other acute finding. Mild left basilar atelectasis. PLEURAL SPACES: No pleural effusion or pneumothorax. MEDIASTINUM: Cardiac size and mediastinal contours within normal limits. BONES: No aggressive appearing osseous lesion seen. Pigtail drainage catheter overlies the right upper quadrant. IMPRESSION: 1. Right IJ central venous catheter tip appropriately positioned in the distal SVC. 2. No acute cardiopulmonary findings. /[place] DICTATED BY: ELDON MILLER Jr., MD DATE: 08/29/251744 ELECTRONICALLY SIGNED BY: ELDON MILLER Jr., MD DATE: 08/29/251744 [place] [address] [place] [address] IMAGING REPORT Signed PATIENT: DALLAS BUCHANAN MR#: [id number] : 1970 SEX: F AGE: 55 LOCATION: 2CV ORDER 8 STATUS: ADM IN REPORT#: [id number] SERVICE 170 REASON: severe renal failure ORDERING PHYSICIAN: BRADEN CONTRERAS MD PROCEDURE: RENAL - US RENAL SONOGRAM EXAM: RENAL AND URINARY BLADDER ULTRASOUND Technique: Grayscale and color Doppler sonography of both kidneys and the urinary bladder was performed. Study quality is adequate. Evaluation of the bladder and ureteral jets is limited by decompression from an indwelling catheter. Clinical Information: Severe renal failure. Findings: Right kidney: Measures 10.3 ??? 5.3 ??? 4.2 centimeters. Renal cortical thickness and echogenicity are within expected limits for technique. No focal mass is identified. No hydronephrosis. No renal calculi. No perinephric fluid collection. Left kidney: Measures 11.0 ??? 4.8 ??? 3.2 centimeters. The renal parenchyma is diffusely increased in echogenicity relative to the adjacent liver and spleen. No focal mass is identified. No hydronephrosis. No renal calculi. No perinephric fluid collection. Urinary bladder: Decompressed with a Dueñas catheter in situ. Bladder wall measures approximately 3 millimeters, which may appear relatively thick due to underdistention. No intraluminal mass or debris is identified on the limited evaluation. Impression: * Left kidney demonstrates increased parenchymal echogenicity, a nonspecific finding commonly associated with medical renal disease in the setting of renal failure. * No hydronephrosis or renal calculi identified bilaterally. * Decompressed urinary bladder with Dueñas catheter in place; apparent wall thickening likely related to underdistention. /[place] DICTATED BY: EDWIGE LEDESMA MD DATE: 08/29/252248 ELECTRONICALLY SIGNED BY: EDWIGE LEDESMA MD DATE: 08/29/252248 [facility] [address] [place], [place] [address] IMAGING REPORT Signed PATIENT: DALLAS BUCHANAN MR#: [id number] : 1970 SEX: F AGE: 55 LOCATION: 2CV ORDER 99 STATUS: ADM IN REPORT#: [id number] SERVICE 9 REASON: hypoxic ORDERING PHYSICIAN: LOBO RICKS PROCEDURE: CXR1VW - CHEST 1VW EXAM: CR Chest, 1 View (Portable, Supine). CLINICAL HISTORY: Chest pain. COMPARISON: CR Chest, 2 View ??? 08/30/2025 01:13 AM EDT. FINDINGS: LUNGS: Lungs are clear. No focal consolidation, pulmonary edema, or acute infiltrate. PLEURAL SPACES: No pleural effusion or pneumothorax. MEDIASTINUM: Cardiac size and mediastinal contours within normal limits. Right internal jugular central venous catheter remains in similar position with the tip projecting over the distal superior vena cava, unchanged from prior. BONES: No acute osseous abnormality. LINES/DEVICES: Right IJ central venous catheter as described. Monitoring leads noted. No new devices identified. IMPRESSION: * Stable position of right IJ central venous catheter with tip at distal SVC. * No pneumothorax or acute cardiopulmonary abnormality. * No significant interval change compared with 08/30/2025 . /[place] DICTATED BY: EDWIGE LEDESMA MD DATE: 08/31/251851 ELECTRONICALLY SIGNED BY: EDWIGE LEDESMA MD DATE: 08/31/251851 [facility] [address] [place], [place] [id number] IMAGING REPORT Signed PATIENT: DALLAS BUCHANAN MR#: [id number] : 1970 SEX: F AGE: 55 LOCATION: 2CV ORDER 99 STATUS: ADM IN REPORT#: [id number] SERVICE 0600 REASON: hypoxic ORDERING PHYSICIAN: LOBO RICKS AGACNP PROCEDURE: CXR1VW - CHEST 1VW EXAM: CR Chest, 1 View (Portable, Supine). CLINICAL HISTORY: Chest pain. COMPARISON: CR Chest, 2 View ??? 08/31/2025 01:13 AM EDT. FINDINGS: LUNGS: Mild prominence of bronchovascular markings in bilateral lower zone. Area of haziness in left lower zone. Lungs are clear. No focal consolidation, pulmonary edema, or acute infiltrate. PLEURAL SPACES: No pleural effusion or pneumothorax. MEDIASTINUM: Cardiac size and mediastinal contours within normal limits. Right internal jugular central venous catheter remains in similar position with the tip projecting over the distal superior vena cava, unchanged from prior. BONES: No acute osseous abnormality. LINES/DEVICES: Right IJ central venous catheter as described. Monitoring leads noted. No new devices identified. IMPRESSION: * Stable position of right IJ central venous catheter with tip at distal SVC. * Area of haziness in left lower zone likely airspace opacity-New finding compared to previous radiograph. * Mild prominence of bronchovascular markings in bilateral lower zone-New finding compared to previous radiograph. Signed By: EDWIGE LEDESMA M.D. /[place] DICTATED BY: TOBI LEAHY MD DATE: 09/01/251518 ELECTRONICALLY SIGNED BY: TOBI LEAHY MD DATE: 09/01/251518 [place] [address] IMAGING REPORT Signed PATIENT: DALLAS BUCHANAN MR#: [id number] : 1970 SEX: F AGE: 55 LOCATION: 2CV ORDER 1130 STATUS: ADM IN REPORT#: [id number] SERVICE 1127 REASON: Left lower lung lobe opacities ORDERING PHYSICIAN: SONJA PERALTA MD PROCEDURE: CHEST WO - CT CHEST W/O CONTRAST EXAM: CT CHEST WITHOUT INTRAVENOUS CONTRAST Technique: Helical computed tomography of the chest from thoracic inlet through the upper abdomen without intravenous contrast, with axial images and coronal/sagittal reformations. Dose optimization performed in accordance with ALARA. Clinical Information: Left lower lung lobe opacities. Comparison: Chest radiograph dated 09/01/2025 at 05:46 EDT. Findings: Soft tissues: Unremarkable. Lungs and large airways: Central airways are patent. Subsegmental consolidation in the posterior segments of both lower lobes. Additional subsegmental consolidation in the superior segment of the left upper lobe. Linear atelectatic bands in the superior lingular segment and posterior segment of the left upper lobe. A calcified pulmonary nodule measures 5 mm in the right lower lobe (series 3, image 29). Pleura: Minimal bilateral pleural effusions. No pneumothorax. Heart and pericardium: Cardiac size within normal limits. No pericardial effusion. Aorta: Normal course and caliber on this noncontrast study. Pulmonary arteries: Evaluation limited without contrast; no large central filling defect is seen on this noncontrast exam. Lymph nodes: No pathologically enlarged mediastinal or hilar lymph nodes. Mediastinum and toya: No mass identified. Chest wall and lower neck: No acute abnormality. Bones/joints: No acute osseous abnormality. Upper abdomen: Visualized portions without acute abnormality; detailed abdominal findings are reported separately. Impression: * Subsegmental consolidation in the posterior segments of both lower lobes and in the superior segment of the left upper lobe with minimal bilateral pleural effusions???most compatible with multifocal atelectasis versus infection/aspiration in the appropriate clinical context. Recommend clinical correlation and short-interval follow-up chest imaging to document resolution. * Benign-appearing calcified pulmonary nodule in the right lower lobe measuring 5 mm (series 3, image 29), consistent with a granuloma; no additional suspicious nodules identified. * No pneumothorax or acute cardiomediastinal abnormality identified on this noncontrast examination. /[place] DICTATED BY: EDWIGE LEDESMA MD DATE: 09/01/252255 ELECTRONICALLY SIGNED BY: EDWIGE LEDESMA MD DATE: 09/01/252255 [address] [address] IMAGING REPORT Addendum PATIENT: DALLAS BUCHANAN MR#: [id number] : 1970 SEX: F AGE: 55 LOCATION: 2CV ORDER 1231 STATUS: ADM IN REPORT#: [id number] SERVICE 1227 REASON: EVALUATE LUQ PIGRTAIL FOR POSSIBLE REMOVAL ORDERING PHYSICIAN: SUSAN GANN MD PROCEDURE: ABDO WO - CT ABDOMEN W/O CONTRAST ADDENDUM REPORT ADDENDUM: Results were shared by telephone at 11:21 pm on 09-01-25 and acknowledged by Patient's Nurse Jabier Bangura. /[place] EXAM: CT ABDOMEN WITHOUT INTRAVENOUS CONTRAST Technique: Multislice helical computed tomography of the abdomen was performed from the diaphragms through the iliac crests with axial images and coronal/sagittal reformations. Dose optimization per ALARA. Contrast: No intravenous contrast administered. Contrast Impression: Noncontrast technique limits assessment of enhancement-dependent pathology and characterization of fluid collections. Clinical Information: Evaluation of left upper quadrant pigtail drain for possible removal. Comparison: CT abdomen/pelvis without contrast dated 08/29/2025. Findings: Lung bases: Interval development of small bilateral pleural effusions with dependent subsegmental atelectasis in the lower lobes. Previously described tiny calcified nodules are not conspicuous on the current noncontrast images. Liver: Morphologic features of cirrhosis are unchanged. No focal hepatic lesion identified on this noncontrast study. Gallbladder and bile ducts: Decompressed gallbladder with a cholecystostomy tube in place, stable. No biliary ductal dilatation. Pancreas: Normal contour without peripancreatic inflammatory change. Spleen: Infrasplenic fluid collection adjacent to the splenic inferior pole measuring approximately 2.7 ??? 3.5 ??? 6.4 cm (previously 2.7 ??? 2.2 ??? 5.1 cm), with a pigtail drainage catheter in situ and mild adjacent fat stranding. Adrenal glands: Normal morphology bilaterally. Kidneys and ureters: Kidneys within normal size and contour; no hydronephrosis or hydroureter; no nephrolithiasis. Urinary bladder: Dueñas catheter in place with small intraluminal gas foci, likely iatrogenic; bladder otherwise unremarkable. Stomach and bowel: Right iliac fossa ileostomy defect ( 2.4 cm) and postoperative bowel changes, stable. No evidence of bowel obstruction, enteritis, or colitis. Peritoneum and mesentery: New minimal free fluid predominantly along the greater curvature of the stomach with mild mesenteric edema (anasarca). No free intraperitoneal air. Lymph nodes: No pathologic abdominopelvic lymphadenopathy. Vasculature: Abdominal aorta normal in caliber. Abdominal wall/soft tissues: Expected postoperative changes at the ostomy site; otherwise unremarkable. Osseous structures: No acute or aggressive osseous abnormality; mild degenerative changes in the visualized spine. Impression: * Infrasplenic collection with indwelling pigtail drain has increased in size compared with 08/29/2025 (now 2.7 ??? 3.5 ??? 6.4 cm from 2.7 ??? 2.2 ??? 5.1 cm) with mild surrounding fat stranding???ongoing collection persists. Drain removal is not advised at this time based on interval enlargement; recommend interventional radiology review for catheter position/patency, consideration of catheter upsizing or repositioning, and correlation with output and culture. * New small bilateral pleural effusions with dependent basilar atelectasis. Monitor clinically; consider diuresis or follow-up imaging as indicated. * Cirrhotic hepatic morphology, unchanged. * Decompressed gallbladder with cholecystostomy tube in place, stable; no biliary ductal dilatation. * Minimal ascites and mild mesenteric edema (anasarca), new from prior. * Dueñas catheter with small intravesical gas, likely iatrogenic. * No bowel obstruction, hydronephrosis, or nephrolithiasis identified. /[place] DICTATED BY: EDWIGE LEDESMA MD DATE: 09/01/25 5335 ELECTRONICALLY SIGNED BY: DATE: EXAM: CT ABDOMEN WITHOUT INTRAVENOUS CONTRAST Technique: Multislice helical computed tomography of the abdomen was performed from the diaphragms through the iliac crests with axial images and coronal/sagittal reformations. Dose optimization per ALARA. Contrast: No intravenous contrast administered. Contrast Impression: Noncontrast technique limits assessment of enhancement-dependent pathology and characterization of fluid collections. Clinical Information: Evaluation of left upper quadrant pigtail drain for possible removal. Comparison: CT abdomen/pelvis without contrast dated 08/29/2025. Findings: Lung bases: Interval development of small bilateral pleural effusions with dependent subsegmental atelectasis in the lower lobes. Previously described tiny calcified nodules are not conspicuous on the current noncontrast images. Liver: Morphologic features of cirrhosis are unchanged. No focal hepatic lesion identified on this noncontrast study. Gallbladder and bile ducts: Decompressed gallbladder with a cholecystostomy tube in place, stable. No biliary ductal dilatation. Pancreas: Normal contour without peripancreatic inflammatory change. Spleen: Infrasplenic fluid collection adjacent to the splenic inferior pole measuring approximately 2.7 ??? 3.5 ??? 6.4 cm (previously 2.7 ??? 2.2 ??? 5.1 cm), with a pigtail drainage catheter in situ and mild adjacent fat stranding. Adrenal glands: Normal morphology bilaterally. Kidneys and ureters: Kidneys within normal size and contour; no hydronephrosis or hydroureter; no nephrolithiasis. Urinary bladder: Dueñas catheter in place with small intraluminal gas foci, likely iatrogenic; bladder otherwise unremarkable. Stomach and bowel: Right iliac fossa ileostomy defect ( 2.4 cm) and postoperative bowel changes, stable. No evidence of bowel obstruction, enteritis, or colitis. Peritoneum and mesentery: New minimal free fluid predominantly along the greater curvature of the stomach with mild mesenteric edema (anasarca). No free intraperitoneal air. Lymph nodes: No pathologic abdominopelvic lymphadenopathy. Vasculature: Abdominal aorta normal in caliber. Abdominal wall/soft tissues: Expected postoperative changes at the ostomy site; otherwise unremarkable. Osseous structures: No acute or aggressive osseous abnormality; mild degenerative changes in the visualized spine. Impression: * Infrasplenic collection with indwelling pigtail drain has increased in size compared with 08/29/2025 (now 2.7 ??? 3.5 ??? 6.4 cm from 2.7 ??? 2.2 ??? 5.1 cm) with mild surrounding fat stranding???ongoing collection persists. Drain removal is not advised at this time based on interval enlargement; recommend interventional radiology review for catheter position/patency, consideration of catheter upsizing or repositioning, and correlation with output and culture. * New small bilateral pleural effusions with dependent basilar atelectasis. Monitor clinically; consider diuresis or follow-up imaging as indicated. * Cirrhotic hepatic morphology, unchanged. * Decompressed gallbladder with cholecystostomy tube in place, stable; no biliary ductal dilatation. * Minimal ascites and mild mesenteric edema (anasarca), new from prior. * Dueñas catheter with small intravesical gas, likely iatrogenic. * No bowel obstruction, hydronephrosis, or nephrolithiasis identified. /[place] DICTATED BY: EDWIGE LEDESMA MD DATE: 09/01/252258 ELECTRONICALLY SIGNED BY: EDWIGE LEDESMA MD DATE: 09/01/252258 [address] [address] [place] [address] IMAGING REPORT Signed PATIENT: DALLAS BUCHANAN MR#: [id number] : 1970 SEX: F AGE: 55 LOCATION: [facility] ORDER 99 STATUS: ADM IN REPORT#: [id number] SERVICE 0600 REASON: hypoxic ORDERING PHYSICIAN: LOBO RICKS PROCEDURE: CXR1VW - CHEST 1VW EXAM: CR Chest, 1 View (Portable, Supine). CLINICAL HISTORY: Chest pain. COMPARISON: CR Chest, 2 View ??? 09/01/2025 01:13 AM EDT. FINDINGS: LUNGS: Area of haziness in left lower zone-Remained stable. Rest of the lungs are clear. No focal consolidation, pulmonary edema, or acute infiltrate. PLEURAL SPACES: No pleural effusion or pneumothorax. MEDIASTINUM: Cardiac size and mediastinal contours within normal limits. No acute osseous abnormality. LINES/DEVICES: Monitoring leads noted. No new devices identified. IMPRESSION: Area of haziness in left lower zone likely airspace opacity-Stable compared to previous radiograph. /[place] DICTATED BY: TOBI LEAHY MD DATE: 09/03/251137 ELECTRONICALLY SIGNED BY: TOBI LEAHY MD DATE: 09/03/251137 [facility] [address] [place] [address] IMAGING REPORT Addendum PATIENT: DALLAS BUCHANAN MR#: [id number] : 1970 SEX: F AGE: 55 LOCATION: 3AH ORDER 1319 STATUS: ADM IN REPORT#: [id number] SERVICE 1316 REASON: R/o DVT versus SVT ORDERING PHYSICIAN: SONJA PERALTA MD PROCEDURE: VENOUS UNI - US VENOUS DOPPLER UNILATERAL ADDENDUM REPORT ADDENDUM: Results were shared by telephone at 10:59am on 09-06-25 and acknowledged by Patients Nurse Ms. Britt Robert /[place] EXAMINATION: SPECTRAL DOPPLER ULTRASOUND EXAMINATION OF THE RIGHT UPPER EXTREMITY VEINS. CLINICAL HISTORY: To rule out DVT. COMPARISON: None. TECHNIQUE: Grayscale, color, and spectral Doppler images of the right upper extremity veins are submitted. FINDINGS: The internal jugular, subclavian, basilic, and brachial veins are patent. These veins show normal flow with physiological changes of phasicity and augmentation. The right axillary vein and cephalic veins are non-compressible and there is no flow on augmentation. IMPRESSION: Acute deep vein thrombosis in the right axillary vein. Right cephalic vein thrombosis. There is no deep vein thrombosis in the remainder of the right upper extmreiyt, /[place] DICTATED BY: TOBI LEAHY MD DATE: 09/06/251154 ELECTRONICALLY SIGNED BY: DATE: EXAMINATION: SPECTRAL DOPPLER ULTRASOUND EXAMINATION OF THE RIGHT UPPER EXTREMITY VEINS. CLINICAL HISTORY: To rule out DVT. COMPARISON: None. TECHNIQUE: Grayscale, color, and spectral Doppler images of the right upper extremity veins are submitted. FINDINGS: The internal jugular, subclavian, basilic, and brachial veins are patent. These veins show normal flow with physiological changes of phasicity and augmentation. The right axillary vein and cephalic veins are non-compressible and there is no flow on augmentation. IMPRESSION: Acute deep vein thrombosis in the right axillary vein. Right cephalic vein thrombosis. There is no deep vein thrombosis in the remainder of the right upper extmreiyt, /[place] DICTATED BY: TOBI LEAHY MD DATE: 09/06/25941 ELECTRONICALLY SIGNED BY: TOBI LEAHY MD DATE: 09/06/[address] [facility] [address] [place] [address] IMAGING REPORT Signed PATIENT: DALLAS BUCHANAN MR#: [id number] : 1970 SEX: F AGE: 55 LOCATION: 3AH ORDER 50 STATUS: ADM IN REPORT#: [id number] SERVICE 45 REASON: abdiominal pain ORDERING PHYSICIAN: CYNTHIA ALEXANDER SCHEDULER PROCEDURE: ABDO WO - CT ABDOMEN W/O CONTRAST EXAMINATION CT Abdomen Without IV Contrast CLINICAL HISTORY Patient presents with abdominal pain. TECHNIQUE Axial computed tomography images of the abdomen were obtained without intravenous contrast. CONTRAST No IV contrast administered. COMPARISON 09/01/2025. FINDINGS: LUNG BASES: Residual trace left pleural effusion with adjacent atelectasis. Interval resolution of previously described mild right pleural effusion. Stable calcified nodule in the right lower lobe. LIVER: Nodular hepatic contour consistent with cirrhosis. GALLBLADDER AND BILE DUCTS: Multiple punctate calcifications in the gallbladder wall. No biliary ductal dilatation. PANCREAS AND SPLEEN: Stable perisplenic fluid collection with drainage catheter in situ and adjacent fat stranding. ADRENAL GLANDS: Unremarkable. KIDNEYS AND URETERS: Normal in size and morphology. No hydronephrosis or nephrolithiasis. STOMACH AND BOWEL: Stomach distended with food residue. Right lumbar ileostomy with stable postsurgical bowel changes. Uncomplicated colonic diverticula. A component of mild constipation. PERITONEUM: Stable mild mesenteric edema. Significant interval resolution of the previously demonstrated minimal free fluid along the greater curvature of the stomach. No new free fluid or free air. LYMPH NODES: No significant lymphadenopathy. VASCULATURE: No abdominal aortic aneurysm. BONES: Multilevel mild spondylosis. IMPRESSION: Nodular cirrhotic liver. Stable perisplenic fluid collection with drainage catheter in situ and adjacent fat stranding. Right lumbar ileostomy with stable postsurgical bowel changes. Residual trace left pleural effusion with adjacent atelectasis. Interval resolution of the right pleural effusion. Stable calcified right lower lobe pulmonary nodule. Stomach distended with food residue. Uncomplicated colonic diverticula with mild constipation. Stable mild mesenteric edema with interval resolution of previously described minimal free fluid. Multiple punctate calcifications in the gallbladder wall, likely cholesterolosis. /[place] DICTATED BY: ELDON MILLER Jr., MD DATE: 09/06/25233 ELECTRONICALLY SIGNED BY: ELDON MILLER Jr., MD DATE: 09/06/25233 [place] [id number] IMAGING REPORT Signed PATIENT: DALLAS BUCHANAN MR#: [id number] : 1970 SEX: F AGE: 55 LOCATION: 3AH ORDER 99 STATUS: ADM IN REPORT#: [id number] SERVICE 06 REASON: EVALUATE LUQ PIGRTAIL FOR POSSIBLE REMOVAL ORDERING PHYSICIAN: FE BRODY MD PROCEDURE: ABDO WO - CT ABDOMEN W/O CONTRAST EXAM: CT ABDOMEN WITHOUT INTRAVENOUS CONTRAST Technique: Multislice helical computed tomography from the diaphragms through the inguinal region with thin-section axial images and coronal/sagittal reformations; dose reduction applied per ALARA. CTDIvol 6.5 mGy; DLP 204.50 mGy???cm. Contrast: No intravenous contrast administered. Clinical Information: Evaluate left upper-quadrant pigtail catheter for possible removal. Comparison: CT abdomen without contrast 09/06 00:31 EST Findings: Lung bases: Residual trace left pleural effusion with adjacent atelectasis; previously described calcified right lower-lobe pulmonary nodule is not visualized on this limited abdominal coverage. Liver: Nodular hepatic contour consistent with cirrhosis; no focal hepatic lesion identified on this noncontrast study. Gallbladder and biliary tree: Multiple punctate calcifications along the gallbladder wall; no biliary ductal dilatation. Pancreas and spleen: Stable perisplenic fluid collection with an indwelling drainage catheter and adjacent mild fat stranding; pancreatic contour and attenuation are unremarkable. Adrenal glands: Unremarkable bilaterally. Kidneys and ureters: Normal size and morphology; no hydronephrosis or nephrolithiasis. Stomach and bowel: Stomach distended with food residue; right lumbar ileostomy with stable postsurgical bowel changes; no bowel obstruction identified. Peritoneum and mesentery: Stable mild mesenteric edema; interval resolution of the previously noted minimal free fluid along the greater curvature of the stomach; no new free fluid or free intraperitoneal air. Lymph nodes: No pathologic abdominopelvic lymphadenopathy. Vasculature: No abdominal aortic aneurysm. Abdominal wall/soft tissues: No focal collection aside from the described perisplenic drain. Osseous structures: Multilevel mild spondylosis; no acute osseous abnormality. Impression: * Stable perisplenic fluid collection with an indwelling drainage catheter and mild adjacent fat stranding???correlate with drain output, clinical status, and inflammatory markers to determine readiness for catheter removal; interval imaging or catheter study may be helpful if uncertainty persists. * Cirrhotic liver morphology. Recommend clinical and laboratory correlation and hepatology follow-up if not already established. * Gallbladder wall calcifications (punctate pattern) without biliary dilatation???correlate clinically; consider surgical consultation if porcelain gallbladder is suspected based on pattern and extent of calcification. * Residual trace left pleural effusion with adjacent atelectasis; stomach distention with food residue; right lumbar ileostomy with expected postsurgical changes; no new abdominopelvic free fluid or free air. * Compared with 09/06/2025 00:31 EST, the perisplenic collection is unchanged with the drain remaining in place, the previously described minimal perigastric free fluid has resolved, and the prior calcified right lower-lobe nodule is not visualized on this limited abdominal scan; otherwise, no significant interval change. /[place] DICTATED BY: EDWIGE LEDESMA MD DATE: 09/09/251409 ELECTRONICALLY SIGNED BY: EDWIGE LEDESMA MD DATE: 09/09/251409 [address] [place] [address] IMAGING REPORT Signed PATIENT: DALLAS BUCHANAN MR#: [id number] : 1970 SEX: F AGE: 55 LOCATION: 3AH ORDER 1316 STATUS: ADM IN REPORT#: [id number] SERVICE 1315 REASON: splenic abscess drain check ORDERING PHYSICIAN: SUNNY TORRE MD PROCEDURE: ABD PEL WO - CT ABDOMEN/PELVIS W/O CONTRAST EXAM: CT Abdomen and Pelvis Without IV contrast CLINICAL HISTORY: splenic abscess drain check TECHNIQUE: Axial computed tomography images of the abdomen and pelvis without intravenous contrast. CONTRAST: No IV contrast. COMPARISON: August 29, 2025 FINDINGS: LUNG BASES: The lung bases appear clear. No pleural effusions are seen. LIVER: Liver contour is nodular suggest underlying cirrhosis. GALLBLADDER AND BILE DUCTS: The gallbladder appears distended with calcification of the wall of the gallbladder.. No radioopaque gallstones are seen. No biliary ductal dilatation is evident. PANCREAS: Unremarkable. SPLEEN: Unremarkable. ADRENAL GLANDS: Unremarkable. KIDNEYS, URETERS, AND BLADDER: The kidneys appear within normal limits. There is no hydronephrosis or hydroureter. No urinary calculi are seen. STOMACH AND BOWEL: Unremarkable appearance of the stomach and bowel. No evidence of bowel obstruction. No evidence suggesting enteritis or colitis. There is a right lower quadrant ostomy noted. APPENDIX: No evidence of acute appendicitis on CT examination. PERITONEUM: Slight haziness within the mesentery is noted which is new compared to the prior. This is most appreciated below the level of the superior mesenteric vein. Redemonstration of a percutaneous pigtail catheter just below the spleen.. Fluid collection 1.8 x 2 cm has decreased compared to the prior. No free air. LYMPH NODES: No lymphadenopathy is evident. REPRODUCTIVE: Unremarkable as visualized. VASCULATURE: No evidence of abdominal aortic aneurysm. BONES: No aggressive appearing osseous lesion. No acute osseous pathology evident. IMPRESSION: 1. 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 2. Pigtail catheter is noted within a fluid collection along the left retroperitoneum 2 x 1.8 cm which has decreased in size. 3. Possible porcelain gallbladder. /[place] DICTATED BY: CELIA RITTER MD DATE: 09/15/251551 ELECTRONICALLY SIGNED BY: CELIA RITTER MD DATE: 09/15/251551 [facility] [address] [place] [address] IMAGING REPORT Signed PATIENT: DALLAS BUCHANAN MR#: [id number] : 1970 SEX: F AGE: 55 LOCATION: 3AH ORDER 06 STATUS: ADM IN REPORT#: [id number] SERVICE 02 REASON: h/o rt upper limb dvt ORDERING PHYSICIAN: REBECCA GARCIA MD PROCEDURE: VENOUS UNI - US VENOUS DOPPLER UNILATERAL STUDY: VENOUS DOPPLER ULTRASOUND OF THE RIGHT UPPER EXTREMITY CLINICAL INFORMATION: History of right upper limb deep venous thrombosis; evaluate for residual or recurrent thrombosis. TECHNIQUE: Duplex Doppler ultrasound of the deep and superficial venous system of the right upper extremity was performed using grayscale imaging, color Doppler, and spectral waveform analysis. COMPARISON: Venous Doppler ultrasound of the right upper extremity from 09/05 at 18:43 EST. FINDINGS: RIGHT UPPER EXTREMITY VENOUS SYSTEM: The right cephalic vein is noncompressible with intraluminal echogenic thrombus and absent color flow, consistent with thrombosis. The right axillary, subclavian, brachial, basilic, and visualized internal jugular veins are patent and fully compressible with normal color filling and phasic, augmentable venous Doppler waveforms. No additional intraluminal echogenic thrombus is identified in the remaining evaluated deep veins of the right upper extremity. SOFT TISSUES: Surrounding soft tissues are unremarkable without focal fluid collection. IMPRESSION: * Thrombosis of the right cephalic vein. * No sonographic evidence of deep venous thrombosis in the remaining evaluated veins of the right upper extremity. * Compared with the venous Doppler ultrasound of the right upper extremity from 09/05 at 18:43 EST, previously described acute thrombosis of the right axillary vein has resolved, with persistent thrombosis of the right cephalic vein. /[place] DICTATED BY: EDWIGE LEDESMA MD DATE: 09/17/25231 ELECTRONICALLY SIGNED BY: EDWIGE LEDESMA MD DATE: 09/17/25231 Assessment/Plan: Discharge Diagnosis: Acute upper GI bleeding- Hematemesis, dark output from ileostomy bag, POA- resolved Sepsis ruled in , source- unknown ,POA Anxiety Acute DVT of right axillary vein -POA unable to determine -resolved Right cephalic vein thrombosis- POA unable to determine High output from ileostomy bag, not POA Hemorrhagic shock versus hypovolemic shock, POA, Resolved Normocytic normochromic anemia, POA Non anion gap metabolic acidosis secondary to high output from ileostomy Generalized anxiety and Insomnia, POA Hypovolemic hypochloremic hyponatremia, POA, Resolved Severe hyperkalemia, POA, Resolved Hypokalemia, Not POA, resolved Hypophosphatemia, Not POA High anion gap metabolic acidosis, POA, Resolved Hyperammonemia, POA Lactic acidosis, POA, Resolved Hyperphosphatemia, POA, Resolved Acute renal failure - Prerenal Acute Kidney Injury,requiring hemodialysis POA, resolved Starvation Ketoacidosis, POA -resolv Recent extended hospitalization in [facility], 07/20/2025- 08/25/2025 for sepsis, acute abdomen, POA Severe Dehydration, POA, Improving History of esophageal varices, POA Acute Decompensated liver cirrhosis, POA Hx of acute cholecystitis, s/p cholecystostomy tube placement on 08/02/2025. Recent Perisplenic abscess, s/p CT-guided drainage tube placement on previous admission (08/09/2025) - Drains removed 2.7 x 2.2 x 5.1 cm infrasplenic collection History of gastritis, POA Hx of Generalized peritonitis with ESBL E coli infection, POA Moderate Protein calorie malnutrition POA History of bilious peritonitis with small colonic anastomosis perforation s/p diagnostic laparoscopy, abdominal washout, ileostomy creation by Dr. Gann, 07/21/2025 Hx of DM II, POA Recent colovesical fistula repair with sigmoid colon resection and anastomosis on 07/09/2022 Discharge Instructions: DATE OF ADMISSION: 08/30/2025 DATE OF DISCHARGE: 09/17/2025 DISPOSITION: home CONDITION: Medically stable CONSULTANTS: Gastroenterology - Tereso Salinas MD, Shaka Adams MD Wound care management - Sean Gomez MD Hematology - Santos Torres MD General surgery - Cory Sevilla MD Nephrology - Denzel Rivera MD Tele psych - Jada Queen MD Critical care - Aristeo Mercado MD FOLLOW UP APPOINTMENTS: Primary Care: Follow-up within 7 days for medication reconciliation, lab review (CBC, CMP), nutrition assessment, and coordination of specialty care. Gastroenterology: Follow-up within 12 weeks. Review biopsy results, manage portal hypertensive gastropathy, and plan variceal surveillance or intervention if needed. General Surgery: Follow-up within 1 week. Evaluate ileostomy, mesenteric panniculitis, and possible porcelain gallbladder. Nephrology: Follow-up within 1 week to monitor renal recovery and electrolyte stability. Psychiatry: Follow-up for ongoing management of anxiety and insomnia. SPECIFIC INSTRUCTIONS: The patient should continue her current medications as prescribed, including Pantoprazole 40 mg twice daily,mirtazapine 15 mg at bedtime, Seroquel as needed for sleep, and fiber supplementation three times daily to manage ileostomy output. She should maintain adequate hydration and follow her GI soft bland diet, ensuring regular intake to prevent dehydration. The patient and her family should monitor her ileostomy output for changes in volume, color, or consistency, and replace or secure the ostomy bag as needed to prevent leakage. Careful attention should be paid to signs of bleeding, including dark, coffee-ground, or bright red output from the ileostomy or vomiting, and any sudden changes in her stool, urine, or general condition should prompt immediate medical evaluation. She should avoid NSAIDs or other medications that increase bleeding risk and continue to follow the instructions provided by the wound care and nursing teams for ostomy hygiene and skin care. Rest, gentle activity, and mobilization within tolerance are encouraged to prevent complications from immobility. The patient and her daughter should continue to observe for symptoms of infection, including fever, chills, redness, or swelling around drains or catheter sites, and contact the care team promptly if these occur. Education has been provided regarding proper care of the ostomy, recognition of bleeding, and maintenance of hydration and nutrition, and both the patient and her daughter verbalized understanding of these instructions. PROCEDURES: EGD IMAGING: report attached to summary MICROBIOLOGY: report attached to summary HOME MEDICATIONS: see med rec NEW MEDICATIONS: Written Prescription given in Patients hand Tab Mirtazapine 15 mg hs Tab Seroquel 12,5 mg hs as needed for insomnia Tab. Sodium Bicarbonate 1300 mg qid Tab. Vitamin B 12 1000 mcg daily Tab, Folic acid 1 mg daily Tab . Atorvastatin 5 mg hs Tab Pantoprazole 40 mg bid Metamucil as needed to increase stool bulk if high output is noticed through ileostomy EMERGENCY INSTRUCTIONS: The patient was instructed to present to the nearest E mergency department or call 911 once their symptoms will return or worsen. Home Medications: Discontinued Reported Medications Cyclobenzaprine HCl (Cyclobenzaprine HCl) 5 Mg Tablet, 1 TAB PO TIDP PRN for muscle spasms for 10 Days, #30 TAB 0 Refills 08/29/25 Medroxyprogesterone Acetate (Provera) 10 Mg Tablet, 1 TAB PO DAILY for 10 Days, #10 TAB 0 Refills 08/29/25 Propranolol HCl (Propranolol HCl) 10 Mg Tablet, 2 TAB PO BID for 30 Days, #60 TAB 0 Refills 07/21/25 Acetaminophen with Codeine (Acetaminophen-Cod #3 Tablet) 300 Mg-30 Mg Tablet, 1 TAB PO Q6HPRN PRN for pain for 7 Days, #28 TAB 0 Refills 07/21/25 Ibuprofen (Ibuprofen 800 mg Tab) 800 Mg Tab, 1 TAB PO TID for pain for 10 Days, #30 TAB 0 Refills 07/21/25 Ondansetron HCl (Ondansetron HCl) 4 Mg Tablet, 1 TAB PO Q6HPRN PRN for nausea/vomiting, #10 TAB 0 Refills 07/21/25 Pantoprazole Sodium (Pantoprazole Sodium) 40 Mg Tablet.dr, 40 MG PO BID, TAB 07/02/25 Iron Fum & P/FA/Vit B & C No.9 (Integra Plus Capsule) 125 Mg Iron-1 Mg Capsule, 1 EACH PO HS, CAP 07/02/25 Medroxyprogesterone Acetate (Provera) 10 Mg Tablet, 10 MG PO DAILY, TAB 07/02/25 Metformin HCl (Metformin HCl) 500 Mg Tablet, 500 MG PO BID, TAB 07/02/25 Montelukast Sodium (Montelukast Sodium) 10 Mg Tablet, 10 MG PO HS, TAB 07/02/25 Pravastatin Sodium (Pravastatin Sodium) 10 Mg Tablet, 10 MG PO HS, TAB 07/02/25 Cholecalciferol (Vitamin D3) (Vitamin D3) 50 Mcg (2000 Unit) Capsule, 50 MCG PO DAILY, CAP 07/02/25 Discontinued Medications: Acetaminophen with Codeine (Acetaminophen-Cod #3 Tablet) 300 Mg-30 Mg Tablet 1 TAB PO Q6HPRN PRN for pain for 7 Days, #28 TAB 0 Refills Cholecalciferol (Vitamin D3) (Vitamin D3) 50 Mcg (2000 Unit) Capsule 50 MCG PO DAILY, CAP Cyclobenzaprine HCl (Cyclobenzaprine HCl) 5 Mg Tablet 1 TAB PO TIDP PRN for muscle spasms for 10 Days, #30 TAB 0 Refills Ibuprofen (Ibuprofen 800 mg Tab) 800 Mg Tab 1 TAB PO TID for pain for 10 Days, #30 TAB 0 Refills Iron Fum & P/FA/Vit B & C No.9 (Integra Plus Capsule) 125 Mg Iron-1 Mg Capsule 1 EACH PO HS, CAP Medroxyprogesterone Acetate (Provera) 10 Mg Tablet 10 MG PO DAILY, TAB Medroxyprogesterone Acetate (Provera) 10 Mg Tablet 1 TAB PO DAILY for 10 Days, #10 TAB 0 Refills Metformin HCl (Metformin HCl) 500 Mg Tablet 500 MG PO BID, TAB Montelukast Sodium (Montelukast Sodium) 10 Mg Tablet 10 MG PO HS, TAB Ondansetron HCl (Ondansetron HCl) 4 Mg Tablet 1 TAB PO Q6HPRN PRN for nausea/vomiting, #10 TAB 0 Refills Pantoprazole Sodium (Pantoprazole Sodium) 40 Mg Tablet.dr 40 MG PO BID, TAB Pravastatin Sodium (Pravastatin Sodium) 10 Mg Tablet 10 MG PO HS, TAB Propranolol HCl (Propranolol HCl) 10 Mg Tablet 2 TAB PO BID for 30 Days, #60 TAB 0 Refills Time spent arranging discharge: 1-30 minutes ATTESTATION BY PHYSICIAN I have seen and examined the patient. I reviewed the documentation, medical decision making, and treatment plan as noted by the resident provider above. I agree with the findings and plan of care. Miguel Conley MD, LAKSHMI MD Sep 17, 2025 08:52 REBECCA GARCIA MD Sep 17, 2025 20:26
[2025-09-17 11:41] VITALS: BP 153/96; PULSE 97; RESP 20; TEMP 97.6
--- NOTE | 2025-09-17 12:56 | PN ---
GASTROENTEROLOGY PROGRESS NOTE Date of Visit: Sep 17, 2025 Time of Visit: 12:55 Events / Notes: No acute events overnight. Patient underwent EGD and was found to have small esophageal varices, scar in the lower 3rd of the esophagus, and portal hypertensive gastropathy. Normal examined duodenum. She has bleeding in ostomy. Repeat EGD without stigmata of bleeding. Review of Systems: CONSTITUTIONAL: No malaise or change in sensation of wellbeing. ENMT: No rhinorrhea, otorrhea, sinus pain, ear ache. CARDIOVASCULAR: No angina, palpitations, orthopnea or paroxysmal dyspnea. RESPIRATORY: No SOB. GASTROINTESTINAL: No abdominal pain, nausea, vomiting, diarrhea, hematemesis, melena or change in the patient's habitual bowel movements consistency/number. GENITOURINARY: No dysuria, hematuria or change in bladder continence. MUSCULOSKELETAL: No new muscle pain or decrease in muscular strength. No new joint swelling, redness or tenderness. SKIN: No new rash. Physical Exam: GEN: Awake, alert, oriented in person, time and place, and in no acute distress. HEENT: No rhinorrhea. Oral mucosa is moist. CHEST: Lung auscultation revealed normal breath sounds bilaterally. CARDIAC:Heart sounds are regular. ABD: Soft, non-tender and not distended. No peritoneal signs on palpation. Normal bowel sounds. Ileostomy in place with watery output. EXT: No cyanosis or clubbing. No edema. SKIN: Intact. No rashes. NEURO: Alert and oriented to name, place and person.No focal motor deficits. Normal speech. Vital Signs (last 8hr) Date Time Temp Pulse Resp B/P (MAP) Pulse Ox O2 Delivery O2 Flow Rate FiO2 09/17/25 11:41 97.5 97 20 153/96 99 Room Air 09/17/25 11:05 Room Air* 0 21 09/17/25 08:00 97.3 97 20 109/60 98 Room Air Laboratory: [ ] Laboratory: Test 09/17/25 11:01 09/17/25 06:15 09/16/25 13:32 09/16/25 06:55 Range/Units Whole Blood Glucose 166 #H 70-110 MG/DL White Blood Count 3.6 L 4.8-10.8 K/uL Red Blood Count 2.68 L 4.00-5.50 MIL/uL Hemoglobin 8.5 L 12.0-16.0 g/dL Hematocrit 25.8 L 36-48 % Mean Corpuscular Volume 96.3 79-99 fL Mean Corpuscular Hemoglobin 31.7 27.0-33.0 pg Mean Corpuscular Hemoglobin Concent 32.9 32.0-36.0 g/dL Red Cell Distribution Width 18.9 H 11.0-15.5 % Platelet Count 172 130-400 K/uL Mean Platelet Volume 9.5 7.5-10.5 fL Immature Granulocyte % (Auto) 0.3 0-1 % Neutrophils (%) (Auto) 51.1 40.0-77.0 % Lymphocytes (%) (Auto) 36.3 21.0-51.0 % Monocytes (%) (Auto) 5.6 3.0-13.0 % Eosinophils (%) (Auto) 5.9 0.0-8.0 % Basophils (%) (Auto) 0.8 0.0-5.0 % Neutrophils # (Auto) 1.8 1.8-7.7 K/uL Lymphocytes # (Auto) 1.3 1.0-4.8 K/uL Monocytes # (Auto) 0.2 0.1-1.0 K/uL Eosinophils # (Auto) 0.21 0.00-0.70 K/uL Basophils # (Auto) 0.03 0.00-0.20 K/uL Absolute Immature Granulocyte (auto 0.01 0-1 K/uL Nucleated Red Blood Cells 0.0 0.0-0.19 % Sodium Level 139 136-145 mmol/L Potassium Level 4.3 3.5-5.1 mmol/L Chloride Level 109 101-111 mmol/L Carbon Dioxide Level 20 L 21-32 mmol/L Blood Urea Nitrogen 15 7-18 mg/dL Creatinine 1.0 0.5-1.0 mg/dL Glomerular Filtration Rate Calc 66 >90 mL/min Random Glucose 92 70-105 mg/dL Total Calcium 8.4 L 8.5-10.1 mg/dL Urine Random Sodium < 13 L 40-220 mmol/l Urine Random Potassium 23 L 25-125 mmol/L Urine Random Chloride 30 L 110-250 mmol/L Red Blood Cell Morphology See comments Current Medications Medications (Trade) Dose Ordered Sig/Gregory Route PRN Reason Start Time Stop Time Status Last Admin Dose Admin Acetaminophen (TYLenol 325MG TAB) 650 mg Q6H PRN PO MILD PAIN (1-3) 08/29/25 10:00 09/28/25 09:59 09/16/25 13:04 650 MG Acetaminophen/ Hydrocodone Bitart (NORco 5/325MG) 2 tab Q4H PRN PO SEVERE PAIN (7-10) 09/08/25 09:30 09/13/25 09:29 DC 09/13/25 00:59 2 TAB Albuterol (DUOneb) 1 udvial Q6H PRN IH SHORTNESS OF BREATH 08/29/25 10:00 09/28/25 09:59 Apixaban (EliquIS) 5 mg BID PO 09/15/25 09:00 09/17/25 07:12 DC 09/16/25 07:44 5 MG Apixaban (EliquIS) 5 mg BID PO 09/08/25 21:00 09/13/25 08:14 DC 09/11/25 20:32 5 MG Apixaban (EliquIS) 10 mg BID PO 09/07/25 22:00 09/08/25 01:42 DC 09/07/25 22:06 10 MG Apixaban (EliquIS) 10 mg BID PO 09/08/25 09:30 09/08/25 10:13 DC Atorvastatin Calcium (LIPItor 10MG) 5 mg HS PO 09/05/25 21:00 10/05/25 20:59 09/16/25 20:55 5 MG Calcium Gluconate (Calcium Gluc 1gm Vial) 1 gm ONCE IV 08/29/25 09:30 08/29/25 09:23 DC Cyclobenzaprine HCl (Cyclobenzaprine HCl) 5 mg TID PRN PO muscle spasms 09/05/25 11:00 10/05/25 10:59 Dextrose (D50w) 50 ml AD PRN IV HYPOGLYCEMIA PROTOCOL 08/29/25 10:00 09/28/25 09:59 Dextrose/Sodium Chloride 1,000 ml @ 0 mls/hr AD IV 08/29/25 12:30 08/29/25 16:05 DC Duloxetine HCl (CymbALTA 30 mg CAP) 30 mg BID PO 09/03/25 21:00 09/09/25 11:10 DC 09/09/25 10:37 30 MG Enoxaparin Sodium (Lovenox (Pharmacy To Dose)) 1 unit Q12H SQ 09/06/25 13:30 09/06/25 13:21 DC Enoxaparin Sodium (Lovenox 60mg) 60 mg Q12H SQ 09/06/25 13:30 09/07/25 15:03 DC 09/07/25 14:29 60 MG Folic Acid (FOLic ACID 1 MG TABLET) 1 mg DAILY PO 09/08/25 09:00 10/08/25 08:59 09/17/25 09:30 1 MG Glucagon (Glucagon 1mg Kit) 1 mg AD PRN IM HYPOGLYCEMIA PROTOCOL 08/29/25 10:00 09/28/25 09:59 Home Med (Home Medication) (Medroxyprogesterone Acetate (Provera) 1 TAB) DAILY PO 09/06/25 09:00 10/06/25 08:59 Insulin Human Regular (humuLIN R 100 UNIT/ML 3ML) 5 unit ONCE IV 08/29/25 09:30 08/29/25 09:25 DC Insulin Human Regular (humuLIN R 100 UNIT/ML 3ML) INSULIN SLIDING SCAL... ACHS SQ 08/29/25 11:30 09/28/25 11:29 09/16/25 13:08 2 UNIT Insulin Human Regular 100 unit/ Sodium Chloride 101 ml @ 0 mls/hr PROTOCOL IV 08/29/25 12:30 08/29/25 16:05 DC Lactated Ringer's 1,000 ml @ 100 mls/hr Q10H IV 09/06/25 00:00 09/06/25 18:44 DC 09/06/25 08:35 100 MLS/HR Lactulose (Constulose 20gm/ 30ml Udcup) 20 gm BID PO 09/05/25 21:00 09/12/25 16:49 DC 09/11/25 08:16 20 GM Lactulose (Constulose 20gm/ 30ml Udcup) 20 gm DAILY PO 09/12/25 17:00 09/12/25 17:00 DC Lactulose (Constulose 20gm/ 30ml Udcup) 20 gm TID PO 09/01/25 14:00 09/05/25 10:44 DC 09/05/25 08:06 20 GM Magnesium Sulfate 50 ml @ 0 mls/hr PROTOCOL IV 08/29/25 12:30 08/29/25 16:05 DC Magnesium Sulfate 50 ml @ 0 mls/hr PROTOCOL IV 08/30/25 10:00 09/29/25 09:59 09/13/25 05:22 25 MLS/HR Magnesium Sulfate 50 ml @ 0 mls/hr PROTOCOL IV 09/02/25 13:30 09/02/25 13:04 DC Magnesium Sulfate 50 ml @ 0 mls/hr PROTOCOL IV 09/03/25 08:00 09/03/25 07:43 DC Meropenem (Merrem 500mg) 500 mg Q24H IVPB 08/29/25 10:00 08/31/25 09:59 DC 08/30/25 09:46 500 MG Meropenem (Merrem 500mg) 500 mg Q24H IVPB 08/31/25 23:30 09/10/25 02:29 DC 09/09/25 23:40 500 MG Midodrine (PROAMatine 5 MG TABLET) 5 mg BID PO 09/10/25 09:00 09/11/25 07:21 DC 09/10/25 21:42 5 MG Midodrine (PROAMatine 5 MG TABLET) 5 mg DAILY20 PO 09/11/25 20:00 09/12/25 09:00 DC 09/11/25 20:31 5 MG Midodrine (PROAMatine 5 MG TABLET) 5 mg TID PO 09/08/25 21:00 09/10/25 08:05 DC 09/09/25 15:24 5 MG Midodrine (PROAMatine 5 MG TABLET) 10 mg BID PO 09/01/25 09:00 08/31/25 18:36 DC Midodrine (PROAMatine 5 MG TABLET) 10 mg TID PO 09/01/25 09:00 09/08/25 17:20 DC 09/08/25 16:16 10 MG Mirtazapine (REMeron 15 MG TAB) 7.5 mg HS PO 09/09/25 21:00 09/12/25 11:05 DC 09/11/25 20:31 7.5 MG Mirtazapine (REMeron 15 MG TAB) 15 mg HS PO 09/12/25 21:00 10/12/25 20:59 09/16/25 20:54 15 MG Morphine Sulfate (morPHINE 2MG SYG) 0.5 mg Q4H PRN IVP SEVERE PAIN (7-10) 09/07/25 13:30 09/08/25 09:11 DC 09/08/25 04:27 0.5 MG Morphine Sulfate (morPHINE 2MG SYG) 0.5 mg Q4H PRN IVP SEVERE PAIN (7-10) 09/08/25 18:00 09/09/25 11:10 DC Morphine Sulfate (morPHINE 2MG SYG) 1 mg Q4H PRN IVP SEVERE PAIN (7-10) 09/05/25 13:30 09/07/25 11:35 DC 09/06/25 23:40 1 MG Morphine Sulfate (morPHINE 2MG SYG) 2 mg Q4H PRN IVP SEVERE PAIN (7-10) 09/01/25 05:30 09/05/25 13:19 DC 09/05/25 04:28 2 MG Norepinephrine Bitartrate 32 mg/ Sodium Chloride 250 ml @ 0 mls/hr Q0M STAT IV 08/29/25 21:01 08/29/25 21:07 DC 08/29/25 21:13 0 MLS/HR Octreotide Acetate 1250 mcg/ Sodium Chloride 250 ml @ 0 mls/hr PROTOCOL IV 08/29/25 08:30 09/01/25 10:32 DC 08/31/25 10:18 5 MLS/HR Ondansetron HCl (zoFRAN 4MG INJ) 4 mg Q6H PRN IVP NAUSEA/VOMITING 08/29/25 09:30 09/28/25 09:29 09/16/25 13:55 4 MG Pantoprazole Sodium (PROTonix 40MG INJ) 40 mg BID IVP 09/01/25 21:00 09/03/25 14:32 DC 09/03/25 09:16 40 MG Pantoprazole Sodium (PROTonix 40MG INJ) 40 mg BID IVP 09/06/25 09:00 10/06/25 08:59 09/17/25 09:30 40 MG Pantoprazole Sodium (PROTonix 40MG TAB) 40 mg DAILY PO 09/04/25 09:00 09/06/25 00:03 DC 09/05/25 08:06 40 MG Pantoprazole Sodium 80 mg/ Sodium Chloride 100 ml @ 10 mls/hr Q10H IV 08/29/25 08:30 09/01/25 10:32 DC 09/01/25 05:50 10 MLS/HR Pharmacy Profile Note (Pharmacy Communication) 1 each ONCE MISC 08/29/25 09:30 08/29/25 09:35 DC Pharmacy Profile Note (Pharmacy Communication) 1 each ONCE MISC 08/31/25 23:30 08/31/25 23:17 DC Potassium Chloride 100 ml @ 50 mls/hr AD PRN IV POTASSIUM PROTOCOL 08/29/25 12:30 09/28/25 12:29 09/14/25 17:44 50 MLS/HR Potassium Chloride 100 ml @ 100 mls/hr AD PRN IV POTASSIUM PROTOCOL 09/15/25 16:30 09/15/25 16:28 DC Potassium Chloride (K-Dur/Klor-Con 20meq) 20 meq AD PRN PO POTASSIUM PROTOCOL 09/15/25 16:30 10/15/25 16:29 09/15/25 19:31 20 MEQ Potassium Chloride (KCl 10% Elixir 20meq/15ml) 20 meq AD PRN PO POTASSIUM PROTOCOL 09/15/25 16:30 10/15/25 16:29 Psyllium Hydrophilic Mucilloid (Metamucil) 1 tbs BID PO 09/12/25 17:00 09/12/25 18:00 DC 09/12/25 17:19 1 TBS Psyllium Hydrophilic Mucilloid (Metamucil) 1 tbs TID PO 09/04/25 14:00 09/12/25 16:49 DC 09/11/25 20:32 1 TBS Quetiapine Fumarate (SEROquel 25 mg TAB) 25 mg ONCE PRN PO INSOMNIA 09/11/25 21:00 09/13/25 08:14 DC 09/13/25 00:58 25 MG Sodium Bicarbonate 150 meq/Dextrose 1,150 ml @ 125 mls/hr Q9H12M IVP 08/29/25 10:00 08/30/25 10:12 DC 08/30/25 08:07 125 MLS/HR Sodium Bicarbonate (Sodium Bicarbonate) 1,300 mg QID PO 09/10/25 17:00 10/10/25 16:59 09/17/25 09:30 1,300 MG Sodium Bicarbonate (Sodium Bicarbonate) 1,300 mg TID PO 09/07/25 14:00 09/08/25 18:00 DC 09/08/25 16:15 1,300 MG Sodium Bicarbonate (Sodium Bicarbonate) 1,300 mg TID PO 09/09/25 09:00 09/10/25 12:00 DC 09/10/25 10:31 1,300 MG Sodium Chloride 250 ml @ 0 mls/hr AD IV 08/29/25 17:30 09/28/25 17:29 Sodium Chloride 1,000 ml @ 0 mls/hr Q0M IV 08/29/25 16:00 08/29/25 16:03 DC Sodium Chloride 1,000 ml @ 0 mls/hr Q0M IV 08/29/25 16:00 09/01/25 08:01 DC 08/29/25 16:10 500 MLS/HR Sodium Chloride 1,000 ml @ 125 mls/hr Q8H IV 08/29/25 09:30 08/29/25 09:57 DC Sodium Chloride 1,000 ml @ 150 mls/hr Q6H40M IV 08/29/25 18:30 09/01/25 09:29 DC 08/31/25 16:16 150 MLS/HR Sodium Chloride 1,000 ml @ 200 mls/hr PROTOCOL IV 08/29/25 12:30 08/29/25 16:05 DC Sodium Chloride 1,000 ml @ 999 mls/hr Q1H1M IV 08/29/25 09:30 08/29/25 09:06 DC Thiamine HCl (Vitamin B-1) 200 mg Q12H IVP 08/29/25 09:30 09/02/25 09:30 DC 09/02/25 08:56 200 MG Vitamin B Complex (Vitamin B-12) 1,000 mcg DAILY PO 09/08/25 09:00 10/08/25 08:59 09/17/25 09:30 1,000 MCG Diagnostics / Radiology: [COPY/PASTE HERE IF NO REPORTS PLEASE DELETE SECTION] Assessment: [Esophageal varices Liver cirrhosis Ileostomy status Hypertension Type 2 diabetes ] Plan: Continue GI prophylaxis Advance diet as tolerated Avoid NSAIDs Antireflux measures Monitor H&H and transfuse as needed Call with questions, concerns or change in clinical status Patient to follow-up at clinic post discharge Thank you for this consult [employer] Sep 17, 2025 12:56
--- NOTE | 2025-09-17 14:07 | NUR ---
DISCHARGE PATIENT DISCHARGE HOME WITH FAMILY. PATIENT TO FOLLOW UP WITH MD, TAKE MEDICATIONS PRESCRIBED, FOLLOW MD RECOMMENDATIONS.
--- NOTE | 2025-09-17 15:21 | PN ---
NEPHROLOGY PROGRESS NOTE Date/Time Patient Seen: Sep 17, 2025 SUBJECTIVE: This is a 55-year-old female with a past medical history of diabetes mellitus type 2, liver cirrhosis, esophageal varices. She initially presented to the hospital with GI bleeding. The patient did have significant hyperkalemia upon admission and did require one course of dialysis. The patient's renal function has greatly improved. The patient had been having some hematochezia through the ostomy and the patient is being seen by Surgical Service and GI She continues to be followed by wound care. The patient is being seen as a followup visit for all of the above. Renal function and electrolytes have been stable. Hemoglobin has remained stable, continues on Eliquis S/P EGD showed small esophageal varices, a scar in the lower third of the esophagus, and portal hypertensive gastropathy She was seen in the medical floor, in no acute distress Pending discharge disposition later today REVIEW OF SYSTEMS: GENERAL: Positive for generalized weakness NEUROLOGIC: Negative for any blurry vision, blind spots, double vision, facial asymmetry, dysphagia, dysarthria, hemiparesis, hemisensory deficits, vertigo, ataxia. HEENT: Negative for any head trauma, neck trauma, neck stiffness, photophobia, phonophobia, sinusitis, rhinitis. CARDIAC: Negative for any chest pain, dyspnea on exertion, paroxysmal nocturnal dyspnea, peripheral edema. PULMONARY: Negative for any shortness of breath, wheezing, COPD, or TB exposure. GASTROINTESTINAL: Negative for any abdominal pain, nausea, vomiting, bright red blood per rectum, melena. GENITOURINARY: Negative for any dysuria, hematuria, incontinence. INTEGUMENTARY: Negative for any rashes, cuts, insect bites. RHEUMATOLOGIC: Negative for any joint pains, photosensitive rashes, history of vasculitis or kidney problems. HEMATOLOGIC: Negative for any abnormal bruising, frequent infections or bleeding. Vital Signs (last 8hr) Date Time Temp Pulse Resp B/P (MAP) Pulse Ox O2 Delivery O2 Flow Rate FiO2 09/17/25 11:41 97.5 97 20 153/96 99 Room Air 09/17/25 11:05 Room Air* 0 21 09/17/25 08:00 97.3 97 20 109/60 98 Room Air PHYSICAL EXAM: GENERAL: Alert and oriented x 3. No acute distress. Well-nourished. EYES: EOMI. Anicteric. HENT: Moist mucous membranes. No scleral icterus. No cervical lymphadenopathy. LUNGS: Clear to auscultation bilaterally. No accessory muscle use. CARDIOVASCULAR: Regular rate and rhythm. No murmur. No JVD. ABDOMEN: Soft, non-tender and non-distended. No palpable masses. Ileostomy in place EXTREMITIES: No edema. Non-tender. SKIN: No rashes or lesions. Warm. NEUROLOGIC: No focal neurological deficits. CN II-XII grossly intact, but not individually tested. PSYCHIATRIC: Cooperative. Appropriate mood and affect. Current Medications Medications (Trade) Dose Ordered Sig/Gregory Route Start Time Stop Time Status Last Admin Dose Admin Apixaban (EliquIS) 5 mg BID PO 09/08/25 21:00 10/08/25 20:59 09/11/25 08:17 5 MG Apixaban (EliquIS) 10 mg BID PO 09/07/25 22:00 09/08/25 01:42 DC 09/07/25 22:06 10 MG Apixaban (EliquIS) 10 mg BID PO 09/08/25 09:30 09/08/25 10:13 DC Atorvastatin Calcium (LIPItor 10MG) 5 mg HS PO 09/05/25 21:00 10/05/25 20:59 09/10/25 20:25 5 MG Calcium Gluconate (Calcium Gluc 1gm Vial) 1 gm ONCE IV 08/29/25 09:30 08/29/25 09:23 DC Dextrose/Sodium Chloride 1,000 ml @ 0 mls/hr AD IV 08/29/25 12:30 08/29/25 16:05 DC Duloxetine HCl (CymbALTA 30 mg CAP) 30 mg BID PO 09/03/25 21:00 09/09/25 11:10 DC 09/09/25 10:37 30 MG Enoxaparin Sodium (Lovenox (Pharmacy To Dose)) 1 unit Q12H SQ 09/06/25 13:30 09/06/25 13:21 DC Enoxaparin Sodium (Lovenox 60mg) 60 mg Q12H SQ 09/06/25 13:30 09/07/25 15:03 DC 09/07/25 14:29 60 MG Folic Acid (FOLic ACID 1 MG TABLET) 1 mg DAILY PO 09/08/25 09:00 10/08/25 08:59 09/11/25 08:16 1 MG Home Med (Home Medication) (Medroxyprogesterone Acetate (Provera) 1 TAB) DAILY PO 09/06/25 09:00 10/06/25 08:59 Insulin Human Regular (humuLIN R 100 UNIT/ML 3ML) 5 unit ONCE IV 08/29/25 09:30 08/29/25 09:25 DC Insulin Human Regular (humuLIN R 100 UNIT/ML 3ML) INSULIN SLIDING SCAL... ACHS SQ 08/29/25 11:30 09/28/25 11:29 09/10/25 20:29 2 UNIT Insulin Human Regular 100 unit/ Sodium Chloride 101 ml @ 0 mls/hr PROTOCOL IV 08/29/25 12:30 08/29/25 16:05 DC Lactated Ringer's 1,000 ml @ 100 mls/hr Q10H IV 09/06/25 00:00 09/06/25 18:44 DC 09/06/25 08:35 100 MLS/HR Lactulose (Constulose 20gm/ 30ml Udcup) 20 gm BID PO 09/05/25 21:00 10/01/25 13:59 09/11/25 08:16 20 GM Lactulose (Constulose 20gm/ 30ml Udcup) 20 gm TID PO 09/01/25 14:00 09/05/25 10:44 DC 09/05/25 08:06 20 GM Magnesium Sulfate 50 ml @ 0 mls/hr PROTOCOL IV 08/29/25 12:30 08/29/25 16:05 DC Magnesium Sulfate 50 ml @ 0 mls/hr PROTOCOL IV 08/30/25 10:00 09/29/25 09:59 09/08/25 04:26 25 MLS/HR Magnesium Sulfate 50 ml @ 0 mls/hr PROTOCOL IV 09/02/25 13:30 09/02/25 13:04 DC Magnesium Sulfate 50 ml @ 0 mls/hr PROTOCOL IV 09/03/25 08:00 09/03/25 07:43 DC Meropenem (Merrem 500mg) 500 mg Q24H IVPB 08/29/25 10:00 08/31/25 09:59 DC 08/30/25 09:46 500 MG Meropenem (Merrem 500mg) 500 mg Q24H IVPB 08/31/25 23:30 11/7/25 02:29 DC 09/09/25 23:40 500 MG Midodrine (PROAMatine 5 MG TABLET) 5 mg BID PO 09/10/25 09:00 09/11/25 07:21 DC 09/10/25 21:42 5 MG Midodrine (PROAMatine 5 MG TABLET) 5 mg DAILY20 PO 09/11/25 20:00 09/12/25 09:00 Midodrine (PROAMatine 5 MG TABLET) 5 mg TID PO 09/08/25 21:00 09/10/25 08:05 DC 09/09/25 15:24 5 MG Midodrine (PROAMatine 5 MG TABLET) 10 mg BID PO 09/01/25 09:00 08/31/25 18:36 DC Midodrine (PROAMatine 5 MG TABLET) 10 mg TID PO 09/01/25 09:00 09/08/25 17:20 DC 09/08/25 16:16 10 MG Mirtazapine (REMeron 15 MG TAB) 7.5 mg HS PO 09/09/25 21:00 10/09/25 20:59 09/10/25 20:24 7.5 MG Norepinephrine Bitartrate 32 mg/ Sodium Chloride 250 ml @ 0 mls/hr Q0M STAT IV 08/29/25 21:01 08/29/25 21:07 DC 08/29/25 21:13 0 MLS/HR Octreotide Acetate 1250 mcg/ Sodium Chloride 250 ml @ 0 mls/hr PROTOCOL IV 08/29/25 08:30 09/01/25 10:32 DC 08/31/25 10:18 5 MLS/HR Pantoprazole Sodium (PROTonix 40MG INJ) 40 mg BID IVP 09/01/25 21:00 09/03/25 14:32 DC 09/03/25 09:16 40 MG Pantoprazole Sodium (PROTonix 40MG INJ) 40 mg BID IVP 09/06/25 09:00 10/06/25 08:59 09/11/25 08:16 40 MG Pantoprazole Sodium (PROTonix 40MG TAB) 40 mg DAILY PO 09/04/25 09:00 09/06/25 00:03 DC 09/05/25 08:06 40 MG Pantoprazole Sodium 80 mg/ Sodium Chloride 100 ml @ 10 mls/hr Q10H IV 08/29/25 08:30 09/01/25 10:32 DC 09/01/25 05:50 10 MLS/HR Pharmacy Profile Note (Pharmacy Communication) 1 each ONCE MISC 08/29/25 09:30 08/29/25 09:35 DC Pharmacy Profile Note (Pharmacy Communication) 1 each ONCE MISC 08/31/25 23:30 08/31/25 23:17 DC Psyllium Hydrophilic Mucilloid (Metamucil) 1 tbs TID PO 09/04/25 14:00 10/04/25 13:59 09/11/25 08:17 1 TBS Sodium Bicarbonate 150 meq/Dextrose 1,150 ml @ 125 mls/hr Q9H12M IVP 08/29/25 10:00 08/30/25 10:12 DC 08/30/25 08:07 125 MLS/HR Sodium Bicarbonate (Sodium Bicarbonate) 1,300 mg QID PO 09/10/25 17:00 10/10/25 16:59 09/11/25 08:16 1,300 MG Sodium Bicarbonate (Sodium Bicarbonate) 1,300 mg TID PO 09/07/25 14:00 09/08/25 18:00 DC 09/08/25 16:15 1,300 MG Sodium Bicarbonate (Sodium Bicarbonate) 1,300 mg TID PO 09/09/25 09:00 09/10/25 12:00 DC 09/10/25 10:31 1,300 MG Sodium Chloride 250 ml @ 0 mls/hr AD IV 08/29/25 17:30 09/28/25 17:29 Sodium Chloride 1,000 ml @ 0 mls/hr Q0M IV 08/29/25 16:00 08/29/25 16:03 DC Sodium Chloride 1,000 ml @ 0 mls/hr Q0M IV 08/29/25 16:00 09/01/25 08:01 DC 08/29/25 16:10 500 MLS/HR Sodium Chloride 1,000 ml @ 125 mls/hr Q8H IV 08/29/25 09:30 08/29/25 09:57 DC Sodium Chloride 1,000 ml @ 150 mls/hr Q6H40M IV 08/29/25 18:30 09/01/25 09:29 DC 08/31/25 16:16 150 MLS/HR Sodium Chloride 1,000 ml @ 200 mls/hr PROTOCOL IV 08/29/25 12:30 08/29/25 16:05 DC Sodium Chloride 1,000 ml @ 999 mls/hr Q1H1M IV 08/29/25 09:30 08/29/25 09:06 DC Thiamine HCl (Vitamin B-1) 200 mg Q12H IVP 08/29/25 09:30 09/02/25 09:30 DC 09/02/25 08:56 200 MG Vitamin B Complex (Vitamin B-12) 1,000 mcg DAILY PO 09/08/25 09:00 10/08/25 08:59 09/11/25 08:16 1,000 MCG LABORATORY: [ ] Hematology Labs: Test 09/17/25 06:15 09/16/25 06:55 Range/Units White Blood Count 3.6 L 4.8-10.8 K/uL Red Blood Count 2.68 L 4.00-5.50 MIL/uL Hemoglobin 8.5 L 12.0-16.0 g/dL Hematocrit 25.8 L 36-48 % Mean Corpuscular Volume 96.3 79-99 fL Mean Corpuscular Hemoglobin 31.7 27.0-33.0 pg Mean Corpuscular Hemoglobin Concent 32.9 32.0-36.0 g/dL Red Cell Distribution Width 18.9 H 11.0-15.5 % Platelet Count 172 130-400 K/uL Mean Platelet Volume 9.5 7.5-10.5 fL Immature Granulocyte % (Auto) 0.3 0-1 % Neutrophils (%) (Auto) 51.1 40.0-77.0 % Lymphocytes (%) (Auto) 36.3 21.0-51.0 % Monocytes (%) (Auto) 5.6 3.0-13.0 % Eosinophils (%) (Auto) 5.9 0.0-8.0 % Basophils (%) (Auto) 0.8 0.0-5.0 % Neutrophils # (Auto) 1.8 1.8-7.7 K/uL Lymphocytes # (Auto) 1.3 1.0-4.8 K/uL Monocytes # (Auto) 0.2 0.1-1.0 K/uL Eosinophils # (Auto) 0.21 0.00-0.70 K/uL Basophils # (Auto) 0.03 0.00-0.20 K/uL Absolute Immature Granulocyte (auto 0.01 0-1 K/uL Nucleated Red Blood Cells 0.0 0.0-0.19 % Red Blood Cell Morphology See comments Chemistry Labs: Test 09/17/25 11:01 09/17/25 06:15 Range/Units Whole Blood Glucose 166 #H 70-110 MG/DL Sodium Level 139 136-145 mmol/L Potassium Level 4.3 3.5-5.1 mmol/L Chloride Level 109 101-111 mmol/L Carbon Dioxide Level 20 L 21-32 mmol/L Blood Urea Nitrogen 15 7-18 mg/dL Creatinine 1.0 0.5-1.0 mg/dL Glomerular Filtration Rate Calc 66 >90 mL/min Random Glucose 92 70-105 mg/dL Total Calcium 8.4 L 8.5-10.1 mg/dL DIAGNOSTICS / RADIOLOGY: [place] [id number] [address] IMAGING REPORT Signed PATIENT: DALLAS BUCHANAN MR#: [id number] : 1970 SEX: F AGE: 55 LOCATION: 3AH ORDER 06 STATUS: ADM IN REPORT#: [id number] SERVICE 02 REASON: h/o rt upper limb dvt ORDERING PHYSICIAN: REBECCA GARCIA MD PROCEDURE: VENOUS UNI - US VENOUS DOPPLER UNILATERAL STUDY: VENOUS DOPPLER ULTRASOUND OF THE RIGHT UPPER EXTREMITY CLINICAL INFORMATION: History of right upper limb deep venous thrombosis; evaluate for residual or recurrent thrombosis. TECHNIQUE: Duplex Doppler ultrasound of the deep and superficial venous system of the right upper extremity was performed using grayscale imaging, color Doppler, and spectral waveform analysis. COMPARISON: Venous Doppler ultrasound of the right upper extremity from 09/05 at 18:43 EST. FINDINGS: RIGHT UPPER EXTREMITY VENOUS SYSTEM: The right cephalic vein is noncompressible with intraluminal echogenic thrombus and absent color flow, consistent with thrombosis. The right axillary, subclavian, brachial, basilic, and visualized internal jugular veins are patent and fully compressible with normal color filling and phasic, augmentable venous Doppler waveforms. No additional intraluminal echogenic thrombus is identified in the remaining evaluated deep veins of the right upper extremity. SOFT TISSUES: Surrounding soft tissues are unremarkable without focal fluid collection. IMPRESSION: * Thrombosis of the right cephalic vein. * No sonographic evidence of deep venous thrombosis in the remaining evaluated veins of the right upper extremity. * Compared with the venous Doppler ultrasound of the right upper extremity from 09/05 at 18:43 EST, previously described acute thrombosis of the right axillary vein has resolved, with persistent thrombosis of the right cephalic vein. /[place] DICTATED BY: EDWIGE LEDESMA MD DATE: 09/17/25231 ELECTRONICALLY SIGNED BY: EDWIGE LEDESMA MD DATE: 09/17/25231 PATIENT: DALLAS BUCHANAN MR#: [id number] : 1970 SEX: F AGE: 55 LOCATION: [facility] ORDER 1316 STATUS: ADM IN REPORT#: [id number] SERVICE 1315 REASON: splenic abscess drain check ORDERING PHYSICIAN: SUNNY TORRE MD PROCEDURE: ABD PEL WO - CT ABDOMEN/PELVIS W/O CONTRAST EXAM: CT Abdomen and Pelvis Without IV contrast CLINICAL HISTORY: splenic abscess drain check TECHNIQUE: Axial computed tomography images of the abdomen and pelvis without intravenous contrast. CONTRAST: No IV contrast. COMPARISON: August 29, 2025 FINDINGS: LUNG BASES: The lung bases appear clear. No pleural effusions are seen. LIVER: Liver contour is nodular suggest underlying cirrhosis. GALLBLADDER AND BILE DUCTS: The gallbladder appears distended with calcification of the wall of the gallbladder.. No radioopaque gallstones are seen. No biliary ductal dilatation is evident. PANCREAS: Unremarkable. SPLEEN: Unremarkable. ADRENAL GLANDS: Unremarkable. KIDNEYS, URETERS, AND BLADDER: The kidneys appear within normal limits. There is no hydronephrosis or hydroureter. No urinary calculi are seen. STOMACH AND BOWEL: Unremarkable appearance of the stomach and bowel. No evidence of bowel obstruction. No evidence suggesting enteritis or colitis. There is a right lower quadrant ostomy noted. APPENDIX: No evidence of acute appendicitis on CT examination. PERITONEUM: Slight haziness within the mesentery is noted which is new compared to the prior. This is most appreciated below the level of the superior mesenteric vein. Redemonstration of a percutaneous pigtail catheter just below the spleen.. Fluid collection 1.8 x 2 cm has decreased compared to the prior. No free air. LYMPH NODES: No lymphadenopathy is evident. REPRODUCTIVE: Unremarkable as visualized. VASCULATURE: No evidence of abdominal aortic aneurysm. BONES: No aggressive appearing osseous lesion. No acute osseous pathology evident. IMPRESSION: 1. 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 2. Pigtail catheter is noted within a fluid collection along the left retroperitoneum 2 x 1.8 cm which has decreased in size. 3. Possible porcelain gallbladder. /[place] DICTATED BY: CELIA RITTER MD DATE: 09/15/251551 ELECTRONICALLY SIGNED BY: CELIA RITTER MD DATE: 09/15/251551 PATIENT: DALLAS BUCHANAN MR#: [id number] : 1970 SEX: F AGE: 55 LOCATION: 3AH ORDER 230 STATUS: ADM IN REPORT#: [id number] SERVICE 0600 REASON: EVALUATE LUQ PIGRTAIL FOR POSSIBLE REMOVAL ORDERING PHYSICIAN: FE BRODY MD PROCEDURE: ABDO WO - CT ABDOMEN W/O CONTRAST EXAM: CT ABDOMEN WITHOUT INTRAVENOUS CONTRAST Technique: Multislice helical computed tomography from the diaphragms through the inguinal region with thin-section axial images and coronal/sagittal reformations; dose reduction applied per ALARA. CTDIvol 6.5 mGy; DLP 204.50 mGy???cm. Contrast: No intravenous contrast administered. Clinical Information: Evaluate left upper-quadrant pigtail catheter for possible removal. Comparison: CT abdomen without contrast 09/06 00:31 EST Findings: Lung bases: Residual trace left pleural effusion with adjacent atelectasis; previously described calcified right lower-lobe pulmonary nodule is not visualized on this limited abdominal coverage. Liver: Nodular hepatic contour consistent with cirrhosis; no focal hepatic lesion identified on this noncontrast study. Gallbladder and biliary tree: Multiple punctate calcifications along the gallbladder wall; no biliary ductal dilatation. Pancreas and spleen: Stable perisplenic fluid collection with an indwelling drainage catheter and adjacent mild fat stranding; pancreatic contour and attenuation are unremarkable. Adrenal glands: Unremarkable bilaterally. Kidneys and ureters: Normal size and morphology; no hydronephrosis or nephrolithiasis. Stomach and bowel: Stomach distended with food residue; right lumbar ileostomy with stable postsurgical bowel changes; no bowel obstruction identified. Peritoneum and mesentery: Stable mild mesenteric edema; interval resolution of the previously noted minimal free fluid along the greater curvature of the stomach; no new free fluid or free intraperitoneal air. Lymph nodes: No pathologic abdominopelvic lymphadenopathy. Vasculature: No abdominal aortic aneurysm. Abdominal wall/soft tissues: No focal collection aside from the described perisplenic drain. Osseous structures: Multilevel mild spondylosis; no acute osseous abnormality. Impression: * Stable perisplenic fluid collection with an indwelling drainage catheter and mild adjacent fat stranding???correlate with drain output, clinical status, and inflammatory markers to determine readiness for catheter removal; interval imaging or catheter study may be helpful if uncertainty persists. * Cirrhotic liver morphology. Recommend clinical and laboratory correlation and hepatology follow-up if not already established. * Gallbladder wall calcifications (punctate pattern) without biliary dilatation???correlate clinically; consider surgical consultation if porcelain gallbladder is suspected based on pattern and extent of calcification. * Residual trace left pleural effusion with adjacent atelectasis; stomach distention with food residue; right lumbar ileostomy with expected postsurgical changes; no new abdominopelvic free fluid or free air. * Compared with 09/06/2025 00:31 EST, the perisplenic collection is unchanged with the drain remaining in place, the previously described minimal perigastric free fluid has resolved, and the prior calcified right lower-lobe nodule is not visualized on this limited abdominal scan; otherwise, no significant interval change. /[place] DICTATED BY: EDWIGE LEDESMA MD DATE: 09/09/251409 ELECTRONICALLY SIGNED BY: EDWIGE LEDESMA MD DATE: 09/09/251409 PATIENT: DALLAS BUCHANAN MR#: [id number] : 1970 SEX: F AGE: 55 LOCATION: 3AH ORDER 235 STATUS: ADM IN REPORT#: [id number] SERVICE 2346 REASON: abdiominal pain ORDERING PHYSICIAN: CYNTHIA ALEXANDER MILK PASTEURIZER PROCEDURE: ABDO WO - CT ABDOMEN W/O CONTRAST EXAMINATION CT Abdomen Without IV Contrast CLINICAL HISTORY Patient presents with abdominal pain. TECHNIQUE Axial computed tomography images of the abdomen were obtained without intravenous contrast. CONTRAST No IV contrast administered. COMPARISON 09/01/2025. FINDINGS: LUNG BASES: Residual trace left pleural effusion with adjacent atelectasis. Interval resolution of previously described mild right pleural effusion. Stable calcified nodule in the right lower lobe. LIVER: Nodular hepatic contour consistent with cirrhosis. GALLBLADDER AND BILE DUCTS: Multiple punctate calcifications in the gallbladder wall. No biliary ductal dilatation. PANCREAS AND SPLEEN: Stable perisplenic fluid collection with drainage catheter in situ and adjacent fat stranding. ADRENAL GLANDS: Unremarkable. KIDNEYS AND URETERS: Normal in size and morphology. No hydronephrosis or nephrolithiasis. STOMACH AND BOWEL: Stomach distended with food residue. Right lumbar ileostomy with stable postsurgical bowel changes. Uncomplicated colonic diverticula. A component of mild constipation. PERITONEUM: Stable mild mesenteric edema. Significant interval resolution of the previously demonstrated minimal free fluid along the greater curvature of the stomach. No new free fluid or free air. LYMPH NODES: No significant lymphadenopathy. VASCULATURE: No abdominal aortic aneurysm. BONES: Multilevel mild spondylosis. IMPRESSION: Nodular cirrhotic liver. Stable perisplenic fluid collection with drainage catheter in situ and adjacent fat stranding. Right lumbar ileostomy with stable postsurgical bowel changes. Residual trace left pleural effusion with adjacent atelectasis. Interval resolution of the right pleural effusion. Stable calcified right lower lobe pulmonary nodule. Stomach distended with food residue. Uncomplicated colonic diverticula with mild constipation. Stable mild mesenteric edema with interval resolution of previously described minimal free fluid. Multiple punctate calcifications in the gallbladder wall, likely cholesterolosis. /[place] DICTATED BY: ELDON MILLER Jr., MD DATE: 09/06/25233 ELECTRONICALLY SIGNED BY: ELDON MILLER Jr., MD DATE: 09/06/25233 PATIENT: DALLAS BUCHANAN MR#: [id number] : 1970 SEX: F AGE: 55 LOCATION: 3AH ORDER 18 STATUS: ADM IN REPORT#: [id number] SERVICE 131 REASON: R/o DVT versus SVT ORDERING PHYSICIAN: SONJA PERALTA MD PROCEDURE: VENOUS UNI - US VENOUS DOPPLER UNILATERAL ADDENDUM REPORT ADDENDUM: Results were shared by telephone at 10:59am on 09-06-25 and acknowledged by Patients Nurse Ms. Britt Robert /[place] EXAMINATION: SPECTRAL DOPPLER ULTRASOUND EXAMINATION OF THE RIGHT UPPER EXTREMITY VEINS. CLINICAL HISTORY: To rule out DVT. COMPARISON: None. TECHNIQUE: Grayscale, color, and spectral Doppler images of the right upper extremity veins are submitted. FINDINGS: The internal jugular, subclavian, basilic, and brachial veins are patent. These veins show normal flow with physiological changes of phasicity and augmentation. The right axillary vein and cephalic veins are non-compressible and there is no flow on augmentation. IMPRESSION: Acute deep vein thrombosis in the right axillary vein. Right cephalic vein thrombosis. There is no deep vein thrombosis in the remainder of the right upper extmreiyt, /[place] DICTATED BY: TOBI LEAHY MD DATE: 09/06/25 115 ELECTRONICALLY SIGNED BY: DATE: EXAMINATION: SPECTRAL DOPPLER ULTRASOUND EXAMINATION OF THE RIGHT UPPER EXTREMITY VEINS. CLINICAL HISTORY: To rule out DVT. COMPARISON: None. TECHNIQUE: Grayscale, color, and spectral Doppler images of the right upper extremity veins are submitted. FINDINGS: The internal jugular, subclavian, basilic, and brachial veins are patent. These veins show normal flow with physiological changes of phasicity and augmentation. The right axillary vein and cephalic veins are non-compressible and there is no flow on augmentation. IMPRESSION: Acute deep vein thrombosis in the right axillary vein. Right cephalic vein thrombosis. There is no deep vein thrombosis in the remainder of the right upper extmreiyt, /[place] DICTATED BY: TOBI LEAHY MD DATE: 09/06/25941 ELECTRONICALLY SIGNED BY: TOBI LEAHY MD DATE: 09/06/25941 PATIENT: DALLAS BUCHANAN MR#: [id number] : 1970 SEX: F AGE: 55 LOCATION: 3AH ORDER 2300 STATUS: ADM IN REPORT#: [id number] SERVICE 0600 REASON: hypoxic ORDERING PHYSICIAN: LOBO RICKS PROCEDURE: CXR1VW - CHEST 1VW EXAM: CR Chest, 1 View (Portable, Supine). CLINICAL HISTORY: Chest pain. COMPARISON: CR Chest, 2 View ??? 09/01/2025 01:13 AM EDT. FINDINGS: LUNGS: Area of haziness in left lower zone-Remained stable. Rest of the lungs are clear. No focal consolidation, pulmonary edema, or acute infiltrate. PLEURAL SPACES: No pleural effusion or pneumothorax. MEDIASTINUM: Cardiac size and mediastinal contours within normal limits. No acute osseous abnormality. LINES/DEVICES: Monitoring leads noted. No new devices identified. IMPRESSION: Area of haziness in left lower zone likely airspace opacity-Stable compared to previous radiograph. /[place] DICTATED BY: TOBI LEAHY MD DATE: 09/03/251137 ELECTRONICALLY SIGNED BY: TOBI LEAHY MD DATE: 09/03/251137 PATIENT: DALLAS BUCHANAN MR#: [id number] : 1970 SEX: F AGE: 55 LOCATION: 2CV ORDER 1231 STATUS: ADM IN REPORT#: [id number] SERVICE 1227 REASON: EVALUATE LUQ PIGRTAIL FOR POSSIBLE REMOVAL ORDERING PHYSICIAN: SUSAN GANN MD PROCEDURE: ABDO WO - CT ABDOMEN W/O CONTRAST ADDENDUM REPORT ADDENDUM: Results were shared by telephone at 11:21 pm on 09-01-25 and acknowledged by Patient's Nurse Jabier Bangura. /[place] EXAM: CT ABDOMEN WITHOUT INTRAVENOUS CONTRAST Technique: Multislice helical computed tomography of the abdomen was performed from the diaphragms through the iliac crests with axial images and coronal/sagittal reformations. Dose optimization per ALARA. Contrast: No intravenous contrast administered. Contrast Impression: Noncontrast technique limits assessment of enhancement-dependent pathology and characterization of fluid collections. Clinical Information: Evaluation of left upper quadrant pigtail drain for possible removal. Comparison: CT abdomen/pelvis without contrast dated 08/29/2025. Findings: Lung bases: Interval development of small bilateral pleural effusions with dependent subsegmental atelectasis in the lower lobes. Previously described tiny calcified nodules are not conspicuous on the current noncontrast images. Liver: Morphologic features of cirrhosis are unchanged. No focal hepatic lesion identified on this noncontrast study. Gallbladder and bile ducts: Decompressed gallbladder with a cholecystostomy tube in place, stable. No biliary ductal dilatation. Pancreas: Normal contour without peripancreatic inflammatory change. Spleen: Infrasplenic fluid collection adjacent to the splenic inferior pole measuring approximately 2.7 ??? 3.5 ??? 6.4 cm (previously 2.7 ??? 2.2 ??? 5.1 cm), with a pigtail drainage catheter in situ and mild adjacent fat stranding. Adrenal glands: Normal morphology bilaterally. Kidneys and ureters: Kidneys within normal size and contour; no hydronephrosis or hydroureter; no nephrolithiasis. Urinary bladder: Dueñas catheter in place with small intraluminal gas foci, likely iatrogenic; bladder otherwise unremarkable. Stomach and bowel: Right iliac fossa ileostomy defect ( 2.4 cm) and postoperative bowel changes, stable. No evidence of bowel obstruction, enteritis, or colitis. Peritoneum and mesentery: New minimal free fluid predominantly along the greater curvature of the stomach with mild mesenteric edema (anasarca). No free intraperitoneal air. Lymph nodes: No pathologic abdominopelvic lymphadenopathy. Vasculature: Abdominal aorta normal in caliber. Abdominal wall/soft tissues: Expected postoperative changes at the ostomy site; otherwise unremarkable. Osseous structures: No acute or aggressive osseous abnormality; mild degenerative changes in the visualized spine. Impression: * Infrasplenic collection with indwelling pigtail drain has increased in size compared with 08/29/2025 (now 2.7 ??? 3.5 ??? 6.4 cm from 2.7 ??? 2.2 ??? 5.1 cm) with mild surrounding fat stranding???ongoing collection persists. Drain removal is not advised at this time based on interval enlargement; recommend interventional radiology review for catheter position/patency, consideration of catheter upsizing or repositioning, and correlation with output and culture. * New small bilateral pleural effusions with dependent basilar atelectasis. Monitor clinically; consider diuresis or follow-up imaging as indicated. * Cirrhotic hepatic morphology, unchanged. * Decompressed gallbladder with cholecystostomy tube in place, stable; no biliary ductal dilatation. * Minimal ascites and mild mesenteric edema (anasarca), new from prior. * Udeñas catheter with small intravesical gas, likely iatrogenic. * No bowel obstruction, hydronephrosis, or nephrolithiasis identified. /[facility] DICTATED BY: EDWIGE LEDESMA MD DATE: 09/01/25 3643 ELECTRONICALLY SIGNED BY: DATE: EXAM: CT ABDOMEN WITHOUT INTRAVENOUS CONTRAST Technique: Multislice helical computed tomography of the abdomen was performed from the diaphragms through the iliac crests with axial images and coronal/sagittal reformations. Dose optimization per ALARA. Contrast: No intravenous contrast administered. Contrast Impression: Noncontrast technique limits assessment of enhancement-dependent pathology and characterization of fluid collections. Clinical Information: Evaluation of left upper quadrant pigtail drain for possible removal. Comparison: CT abdomen/pelvis without contrast dated 08/29/2025. Findings: Lung bases: Interval development of small bilateral pleural effusions with dependent subsegmental atelectasis in the lower lobes. Previously described tiny calcified nodules are not conspicuous on the current noncontrast images. Liver: Morphologic features of cirrhosis are unchanged. No focal hepatic lesion identified on this noncontrast study. Gallbladder and bile ducts: Decompressed gallbladder with a cholecystostomy tube in place, stable. No biliary ductal dilatation. Pancreas: Normal contour without peripancreatic inflammatory change. Spleen: Infrasplenic fluid collection adjacent to the splenic inferior pole measuring approximately 2.7 ??? 3.5 ??? 6.4 cm (previously 2.7 ??? 2.2 ??? 5.1 cm), with a pigtail drainage catheter in situ and mild adjacent fat stranding. Adrenal glands: Normal morphology bilaterally. Kidneys and ureters: Kidneys within normal size and contour; no hydronephrosis or hydroureter; no nephrolithiasis. Urinary bladder: Dueñas catheter in place with small intraluminal gas foci, likely iatrogenic; bladder otherwise unremarkable. Stomach and bowel: Right iliac fossa ileostomy defect ( 2.4 cm) and postoperative bowel changes, stable. No evidence of bowel obstruction, enteritis, or colitis. Peritoneum and mesentery: New minimal free fluid predominantly along the greater curvature of the stomach with mild mesenteric edema (anasarca). No free intraperitoneal air. Lymph nodes: No pathologic abdominopelvic lymphadenopathy. Vasculature: Abdominal aorta normal in caliber. Abdominal wall/soft tissues: Expected postoperative changes at the ostomy site; otherwise unremarkable. Osseous structures: No acute or aggressive osseous abnormality; mild degenerative changes in the visualized spine. Impression: * Infrasplenic collection with indwelling pigtail drain has increased in size compared with 08/29/2025 (now 2.7 ??? 3.5 ??? 6.4 cm from 2.7 ??? 2.2 ??? 5.1 cm) with mild surrounding fat stranding???ongoing collection persists. Drain removal is not advised at this time based on interval enlargement; recommend interventional radiology review for catheter position/patency, consideration of catheter upsizing or repositioning, and correlation with output and culture. * New small bilateral pleural effusions with dependent basilar atelectasis. Monitor clinically; consider diuresis or follow-up imaging as indicated. * Cirrhotic hepatic morphology, unchanged. * Decompressed gallbladder with cholecystostomy tube in place, stable; no biliary ductal dilatation. * Minimal ascites and mild mesenteric edema (anasarca), new from prior. * Dueñas catheter with small intravesical gas, likely iatrogenic. * No bowel obstruction, hydronephrosis, or nephrolithiasis identified. /[facility] DICTATED BY: EDWIGE LEDESMA MD DATE: 09/01/252258 ELECTRONICALLY SIGNED BY: EDWIGE LEDESMA MD DATE: 09/01/252258 PATIENT: DALLAS BUCHANAN MR#: [id number] : 1970 SEX: F AGE: 55 LOCATION: 2CV ORDER 113 STATUS: ADM IN REPORT#: [id number] SERVICE 26 REASON: Left lower lung lobe opacities ORDERING PHYSICIAN: SONJA PERALTA MD PROCEDURE: CHEST WO - CT CHEST W/O CONTRAST EXAM: CT CHEST WITHOUT INTRAVENOUS CONTRAST Technique: Helical computed tomography of the chest from thoracic inlet through the upper abdomen without intravenous contrast, with axial images and coronal/sagittal reformations. Dose optimization performed in accordance with ALARA. Clinical Information: Left lower lung lobe opacities. Comparison: Chest radiograph dated 09/01/2025 at 05:46 EDT. Findings: Soft tissues: Unremarkable. Lungs and large airways: Central airways are patent. Subsegmental consolidation in the posterior segments of both lower lobes. Additional subsegmental consolidation in the superior segment of the left upper lobe. Linear atelectatic bands in the superior lingular segment and posterior segment of the left upper lobe. A calcified pulmonary nodule measures 5 mm in the right lower lobe (series 3, image 29). Pleura: Minimal bilateral pleural effusions. No pneumothorax. Heart and pericardium: Cardiac size within normal limits. No pericardial effusion. Aorta: Normal course and caliber on this noncontrast study. Pulmonary arteries: Evaluation limited without contrast; no large central filling defect is seen on this noncontrast exam. Lymph nodes: No pathologically enlarged mediastinal or hilar lymph nodes. Mediastinum and toya: No mass identified. Chest wall and lower neck: No acute abnormality. Bones/joints: No acute osseous abnormality. Upper abdomen: Visualized portions without acute abnormality; detailed abdominal findings are reported separately. Impression: * Subsegmental consolidation in the posterior segments of both lower lobes and in the superior segment of the left upper lobe with minimal bilateral pleural effusions???most compatible with multifocal atelectasis versus infection/aspiration in the appropriate clinical context. Recommend clinical correlation and short-interval follow-up chest imaging to document resolution. * Benign-appearing calcified pulmonary nodule in the right lower lobe measuring 5 mm (series 3, image 29), consistent with a granuloma; no additional suspicious nodules identified. * No pneumothorax or acute cardiomediastinal abnormality identified on this noncontrast examination. /Ronald DICTATED BY: EDWIGE LEDESMA MD DATE: 09/01/252255 ELECTRONICALLY SIGNED BY: EDWIGE LEDESMA MD DATE: 09/01/252255 PATIENT: DALLAS BUCHANAN MR#: [id number] : 1970 SEX: F AGE: 55 LOCATION: 2CV ORDER 99 STATUS: ADM IN REPORT#: [id number] SERVICE 0600 REASON: hypoxic ORDERING PHYSICIAN: LOBO RICKS PROCEDURE: CXR1VW - CHEST 1VW EXAM: CR Chest, 1 View (Portable, Supine). CLINICAL HISTORY: Chest pain. COMPARISON: CR Chest, 2 View ??? 08/31/2025 01:13 AM EDT. FINDINGS: LUNGS: Mild prominence of bronchovascular markings in bilateral lower zone. Area of haziness in left lower zone. Lungs are clear. No focal consolidation, pulmonary edema, or acute infiltrate. PLEURAL SPACES: No pleural effusion or pneumothorax. MEDIASTINUM: Cardiac size and mediastinal contours within normal limits. Right internal jugular central venous catheter remains in similar position with the tip projecting over the distal superior vena cava, unchanged from prior. BONES: No acute osseous abnormality. LINES/DEVICES: Right IJ central venous catheter as described. Monitoring leads noted. No new devices identified. IMPRESSION: * Stable position of right IJ central venous catheter with tip at distal SVC. * Area of haziness in left lower zone likely airspace opacity-New finding compared to previous radiograph. * Mild prominence of bronchovascular markings in bilateral lower zone-New finding compared to previous radiograph. Signed By: EDWIGE LEDESMA M.D. /[facility] DICTATED BY: TOBI LEAHY MD DATE: 09/01/251518 ELECTRONICALLY SIGNED BY: TOBI LEAHY MD DATE: 09/01/251518 PATIENT: DALLAS BUCHANAN MR#: [id number] : 1970 SEX: F AGE: 55 LOCATION: 2CV ORDER 99 STATUS: ADM IN REPORT#: [id number] SERVICE 06 REASON: hypoxic ORDERING PHYSICIAN: LOBO RICKS PROCEDURE: CXR1VW - CHEST 1VW EXAM: CR Chest, 1 View (Portable, Supine). CLINICAL HISTORY: Chest pain. COMPARISON: CR Chest, 2 View ??? 08/30/2025 01:13 AM EDT. FINDINGS: LUNGS: Lungs are clear. No focal consolidation, pulmonary edema, or acute infiltrate. PLEURAL SPACES: No pleural effusion or pneumothorax. MEDIASTINUM: Cardiac size and mediastinal contours within normal limits. Right internal jugular central venous catheter remains in similar position with the tip projecting over the distal superior vena cava, unchanged from prior. BONES: No acute osseous abnormality. LINES/DEVICES: Right IJ central venous catheter as described. Monitoring leads noted. No new devices identified. IMPRESSION: * Stable position of right IJ central venous catheter with tip at distal SVC. * No pneumothorax or acute cardiopulmonary abnormality. * No significant interval change compared with 08/30/2025 . /[facility] DICTATED BY: EDWIGE LEDESMA MD DATE: 08/31/251851 ELECTRONICALLY SIGNED BY: EDWIGE LEDESMA MD DATE: 08/31/251851 PATIENT: DALLAS BUCHANAN MR#: [id number] : 1970 SEX: F AGE: 55 LOCATION: 2CV ORDER 09 STATUS: ADM IN REPORT#: [id number] SERVICE 1700 REASON: severe renal failure ORDERING PHYSICIAN: BRADEN CONTRERAS MD PROCEDURE: RENAL - US RENAL SONOGRAM EXAM: RENAL AND URINARY BLADDER ULTRASOUND Technique: Grayscale and color Doppler sonography of both kidneys and the urinary bladder was performed. Study quality is adequate. Evaluation of the bladder and ureteral jets is limited by decompression from an indwelling catheter. Clinical Information: Severe renal failure. Findings: Right kidney: Measures 10.3 ??? 5.3 ??? 4.2 centimeters. Renal cortical thickness and echogenicity are within expected limits for technique. No focal mass is identified. No hydronephrosis. No renal calculi. No perinephric fluid collection. Left kidney: Measures 11.0 ??? 4.8 ??? 3.2 centimeters. The renal parenchyma is diffusely increased in echogenicity relative to the adjacent liver and spleen. No focal mass is identified. No hydronephrosis. No renal calculi. No perinephric fluid collection. Urinary bladder: Decompressed with a Dueñas catheter in situ. Bladder wall measures approximately 3 millimeters, which may appear relatively thick due to underdistention. No intraluminal mass or debris is identified on the limited evaluation. Impression: * Left kidney demonstrates increased parenchymal echogenicity, a nonspecific finding commonly associated with medical renal disease in the setting of renal failure. * No hydronephrosis or renal calculi identified bilaterally. * Decompressed urinary bladder with Dueñas catheter in place; apparent wall thickening likely related to underdistention. /[facility] DICTATED BY: EDWIGE LEEDSMA MD DATE: 08/29/252248 ELECTRONICALLY SIGNED BY: EDWIGE LEDESMA MD DATE: 08/29/252248 PATIENT: DALLAS BUCHANAN MR#: [id number] : 1970 SEX: F AGE: 55 LOCATION: 2CV ORDER 1540 STATUS: ADM IN REPORT#: [id number] SERVICE 1539 REASON: central line placement ORDERING PHYSICIAN: LOBO RICKS PROCEDURE: CXR1VW - CHEST 1VW EXAM: CR Chest, 2 View. CLINICAL HISTORY: central line placement COMPARISON: None provided. FINDINGS: Right IJ central venous catheter tip projects at the distal SVC. Right peripheral line overlies expected location of the right axillary vessels. LUNGS: The lungs show no infiltrate or other acute finding. Mild left basilar atelectasis. PLEURAL SPACES: No pleural effusion or pneumothorax. MEDIASTINUM: Cardiac size and mediastinal contours within normal limits. BONES: No aggressive appearing osseous lesion seen. Pigtail drainage catheter overlies the right upper quadrant. IMPRESSION: 1. Right IJ central venous catheter tip appropriately positioned in the distal SVC. 2. No acute cardiopulmonary findings. /[facility] DICTATED BY: ELDON MILLER Jr., MD DATE: 08/29/251744 ELECTRONICALLY SIGNED BY: ELDON MILLER Jr., MD DATE: 08/29/251744 PATIENT: DALLAS BUCHANAN MR#: [id number] : 1970 SEX: F AGE: 55 LOCATION: 2CV ORDER 9 STATUS: ADM IN REPORT#: [id number] SERVICE 7 REASON: coffee ground emesis, hx of abdominal drain, nausea, vomiting, hx of cirrho ORDERING PHYSICIAN: BRADEN CONTRERAS MD PROCEDURE: ABD PEL WO - CT ABDOMEN/PELVIS W/O CONTRAST EXAM: CT Abdomen and Pelvis Without IV contrast CLINICAL HISTORY: coffee ground emesis, hx of abdominal drain, nausea, vomiting, hx of cirrho TECHNIQUE: Axial computed tomography images of the abdomen and pelvis without intravenous contrast. CONTRAST: No IV contrast. COMPARISON: Study dated 08/23/25. FINDINGS: LUNG BASES: Tiny calcified nodules in the posterior basal segment of the right lower lobe. There is mild dependent airspace disease within the bilateral lower lobes that is presumed to reflect atelectasis. No pleural effusions are seen. LIVER: There is cirrhotic hepatic morphology. Several small esophageal varices are noted. GALLBLADDER AND BILE DUCTS: The gallbladder is decompressed with a cholecystostomy tube in place. No biliary ductal dilatation is evident. PANCREAS: Unremarkable. SPLEEN: 2.7 x 2.2 x 5.1 cm infrasplenic collection with adjacent fat stranding and pigtail tube in place. ADRENAL GLANDS: Unremarkable. KIDNEYS, URETERS, AND BLADDER: The kidneys appear within normal limits. There is no hydronephrosis or hydroureter. No urinary calculi are seen. Dueñas's bulb in the urinary bladder with few air foci. STOMACH AND BOWEL: 2.4 cm ileostomy defect in the right iliac fossa and postoperative changes in the bowel loops. No evidence of bowel obstruction. No evidence suggesting enteritis or colitis. APPENDIX: No evidence of acute appendicitis on CT examination. PERITONEUM: No free fluid. No free air. LYMPH NODES: No lymphadenopathy is evident. REPRODUCTIVE: Unremarkable as visualized. VASCULATURE: No evidence of abdominal aortic aneurysm. BONES: No aggressive appearing osseous lesion. No acute osseous pathology evident. Mild degenerative changes in the spine. IMPRESSION: 1. Cirrhotic hepatic morphology. Several small esophageal varices are noted. 2. 2.7 x 2.2 x 5.1 cm infrasplenic collection with adjacent fat stranding and pigtail tube in place. 3. Cholecystostomy tube in decompressed gallbladder. 4. Ileostomy in right iliac fossa with postoperative changes. /[facility] DICTATED BY: ELDON MILLER Jr., MD DATE: 08/29/251619 ELECTRONICALLY SIGNED BY: ELDON MILLER Jr., MD DATE: 08/29/251619 PATIENT: DALLAS BUCHANAN MR#: [id number] : 1970 SEX: F AGE: 55 LOCATION: EDHIP ORDER 6 STATUS: ADM IN REPORT#: [id number] SERVICE 5 REASON: sob ORDERING PHYSICIAN: MILAD WYNN MD PROCEDURE: CXR1VW - CHEST 1VW EXAM: CR Chest, 1 View. CLINICAL HISTORY: sob COMPARISON: None provided. FINDINGS: LUNGS: There is no mass, infiltrate, or acute pulmonary abnormality. Mild left basilar atelectasis and/or parenchymal scarring. PLEURAL SPACES: No evidence of pleural effusion or pneumothorax. MEDIASTINUM: Cardiac size and mediastinal contours within normal limits. BONES: No aggressive appearing osseous lesion seen. IMPRESSION: No acute cardiopulmonary pathology is evident. /[facility]onald DICTATED BY: ELDON MILLER Jr., MD DATE: 08/29/251103 ELECTRONICALLY SIGNED BY: ELDON MILLER JDATE: 08/29/251103 ASSESSMENT: Severe hyperkalemia Anemia Acute renal failure Hyponatremia Acute upper GI bleeding- Hematemesis, dark output from ileostomy bag, POA, Improving Acute DVT of right axillary vein and right cephalic vein High output from ileostomy bag, not POA Hemorrhagic shock versus hypovolemic shock, POA, Resolved Hypovolemic hypochloremic hyponatremia, POA, Resolved Severe hyperkalemia, POA, Resolved Hyperammonemia, POA, Improving Lactic acidosis, POA, Resolved Hyperphosphatemia, POA, Resolved Starvation Ketoacidosis, POA Rule out occult sepsis, POA Recent extended hospitalization in [facility], 07/20/2025- 08/25/2025 for sepsis, acute abdomen, POA Severe Dehydration, POA, Improving History of esophageal varices, POA Acute Decompensated liver cirrhosis, POA Hx of acute cholecystitis, s/p cholecystostomy tube placement on 08/02/2025. Perisplenic abscess, s/p CT-guided drainage placement on 08/09/2025. 2.7 x 2.2 x 5.1 cm infrasplenic collection History of gastritis, POA Hx of Generalized peritonitis with ESBL E coli infection, POA Moderate Protein calorie malnutrition POA History of bilious peritonitis with small colonic anastomosis perforation s/p diagnostic laparoscopy, abdominal washout, ileostomy creation by Dr. Gann, 07/21/2025 Hx of DM II, POA Recent colovesical fistula repair with sigmoid colon resection and anastomosis on PLAN: Labs, diagnostic, radiologic exams reviewed and interpreted by myself and supervising physician. We have reviewed external records in detail Pending discharge disposition later today Monitor blood pressure adjust medication doses as needed Avoid hypotensive episodes May use Dilaudid 0.5 mg IV every 6 hours as needed for severe pain Monitor blood sugars Strict intake, output, and daily weight should be monitored Please renally adjust medications Avoid nephrotoxic and nonsteroidal drugs Avoid contrast if possible Will continue to monitor renal function, anemia, electrolytes Treatment plan discussed with patient Questions were answered We have discussed with the other team physicians in detail about the care plan We will continue to monitor the patient closely ATTESTATION BY PHYSICIAN I have seen and examined the patient. I reviewed the documentation, medical decision making, and treatment plan as noted by the mid-level provider above. I agree with the findings and plan of care. CIELO PORTILLO MD, [facility] Sep 17, 2025 15:21
== END 2025-09-17 13:45 | disposition home or self-care (01) | DRG 720 ==
LOC: EDH 07:35 → EDHIP 09:21 → 2CV 13:21 → 3AH 09-02 10:42
PROVIDERS: ADMIT Internal Medicine; ATTEND Internal Medicine
PROC: 5A1D70Z Performance of Urinary Filtration, Intermittent, Less than 6 Hours Per Day (ICD-10-PCS; principal; 2025-08-29)
PROC: 05HY33Z Insertion of Infusion Device into Upper Vein, Percutaneous Approach (ICD-10-PCS; 2025-08-29)
PROC: B54MZZA Ultrasonography of Right Upper Extremity Veins, Guidance (ICD-10-PCS; 2025-08-29)
PROC: 0DB68ZX Excision of Stomach, Via Natural or Artificial Opening Endoscopic, Diagnostic (ICD-10-PCS; 2025-09-01)
PROC: 0DB78ZX Excision of Stomach, Pylorus, Via Natural or Artificial Opening Endoscopic, Diagnostic (ICD-10-PCS; 2025-09-01)
PROC: 0DB68ZX Excision of Stomach, Via Natural or Artificial Opening Endoscopic, Diagnostic (ICD-10-PCS; 2025-09-14)
DX: A41.9 Sepsis, unspecified organism (principal); J96.01 Acute respiratory failure with hypoxia; R65.21 Severe sepsis with septic shock; G93.41 Metabolic encephalopathy; E43 Unspecified severe protein-calorie malnutrition; E87.29 Other acidosis; D69.6 Thrombocytopenia, unspecified; I85.10 Secondary esophageal varices without bleeding; N17.9 Acute kidney failure, unspecified; K92.0 Hematemesis; D73.3 Abscess of spleen; Z79.01 Long term (current) use of anticoagulants; E11.22 Type 2 diabetes mellitus with diabetic chronic kidney disease; N18.9 Chronic kidney disease, unspecified; I12.9 Hypertensive chronic kidney disease with stage 1 through stage 4 chronic kidney disease, or unspecified chronic kidney disease; D50.9 Iron deficiency anemia, unspecified; K76.6 Portal hypertension; E87.1 Hypo-osmolality and hyponatremia; E87.21 Acute metabolic acidosis; E87.5 Hyperkalemia; E86.0 Dehydration; E87.6 Hypokalemia; K74.60 Unspecified cirrhosis of liver; E86.1 Hypovolemia; J98.11 Atelectasis; K57.30 Diverticulosis of large intestine without perforation or abscess without bleeding; I82.A11 Acute embolism and thrombosis of right axillary vein; E83.39 Other disorders of phosphorus metabolism; E87.8 Other disorders of electrolyte and fluid balance, not elsewhere classified; K22.89 Other specified disease of esophagus; K31.89 Other diseases of stomach and duodenum; G47.00 Insomnia, unspecified; I82.611 Acute embolism and thrombosis of superficial veins of right upper extremity; K59.00 Constipation, unspecified; F41.1 Generalized anxiety disorder; Z93.3 Colostomy status; Z93.2 Ileostomy status; Z86.718 Personal history of other venous thrombosis and embolism; Z86.19 Personal history of other infectious and parasitic diseases; Z79.899 Other long term (current) drug therapy; Z79.2 Long term (current) use of antibiotics
CPT/HCPCS: 36415; 36556; 36569; 36600; 43239; 71045; 71250; 74150; 74176; 76770; 80048; 80051; 80053; 80076; 81001; 82010; 82040; 82140; 82270; 82435; 82550; 82570; 82803; 82947; 82948; 83036; 83540; 83550; 83605; 83615; 83735; 83880; 84100; 84132; 84145; 84295; 84300; 84443; 84481; 84484; 85014; 85018; 85025; 85027; 85610; 85651; 85730; 86140; 86704; 86706; 86803; 86850; 86900; 86901; 87040; 87086; 87340; 88305; 88312; 90935; 93005; 93971; 94640; 96374; 96375; 99291; A4606; C1894; G0378; J0612; J1650; J1815; J2185; J2270; J2354; J2405; J2470; J2550; J2704; J3411; J3475; J3480; J3490; J7030; J7050; J7070; A4215; A4222; A4223; A4620; C1751; L0625

== ENCOUNTER 2025-10-07 18:45 | Inpatient (IN) | payer MEDICAID, OTHER ==
[~2025-10-07] VITALS: Ht 152.4 cm; Wt 58.6 kg
--- NOTE | 2025-10-07 19:03 | ERN ---
ED Note History of Present Illness Stated Complaint: ABDOMINAL PAIN Chief Complaint: Abdominal Pain Time Seen by MD: 18:51 Dictation: THERE IS A 55-YEAR-OLD FEMALE COMING IN WITH ABDOMINAL PAIN DISTENTION THAT SHE RATES AT A 10/10. SHE HAS HAD NO NAUSEA NO VOMITING NO FEVER. WAS JUST RECENTLY RELEASED FROM [facility] EMERGENCY ROOM AFTER BEING HERE FOR AN EXTENDED STAY TO INCLUDE ICU, EMERGENT HEMODIALYSIS AND A DIVERTING ILEOSTOMY. SHE STATES HER ABDOMEN IS VERY BLOATED SHE IS DISTENDED. CHEST PAIN NO BACK PAIN NO SOB. HAS A SIGNIFICANT MEDICAL HISTORY OF HYPERTENSION DIABETES ILEOSTOMY/CIRRHOSIS WITH VARICES AND BANDING. Allergies: Coded Allergies: aspirin (Unverified Allergy, Unknown, 07/02/25) bismuth subsalicylate (Unverified Allergy, Unknown, 07/02/25) pork derived (porcine) (Unverified Allergy, Unknown, 07/02/25) Uncoded Allergies: BISMUTH (Allergy, Unknown, 07/02/25) Home Meds Active Scripts Quetiapine Fumarate (Quetiapine Fumarate) 25 Mg Tablet, 1 TAB PO HS for 30 Days, #30 TAB 0 Refills Prov:REBECCA GARCIA MD 10/06/25 Sodium Bicarbonate (Sodium Bicarbonate) 650 Mg Tablet, 1300 MG PO QID for 30 Days, #120 TAB Prov:REBECCA GARCIA MD 10/06/25 Nystatin (Nystop/Mycostatin Pwdr) 100,000 Unit/Gram Powder, 0 APPL TP DAILYPRN PRN for RASH, #1 APPL 1 Refill TO BE APPLIED AROUND THE STOMA NEEDED FOR RASH OR IRRITATION Prov:REBECCA GARCIA MD 10/06/25 [miDODRine HCL 5 MG TABLET] 5 MG TABLET No Conflict Check, 10 MG PO Q8H for 10 Days, #30 TAB 1 Refill Prov:REBECCA GARCIA MD 10/06/25 Folic Acid (Folvite) 1 Mg Tab, 1 MG PO DAILY, #15 TAB 1 Refill Prov:REBECCA GARCIA MD 10/06/25 Dicyclomine HCl (Bentyl) 20 Mg Tab, 10 MG PO Q6H6, #40 TAB 1 Refill Prov:REBECCA GARCIA MD 10/06/25 Cyanocobalamin (Vitamin B-12) (Vitamin B-12) 1,000 Mcg Tablet, 1000 MCG PO DAILY, #15 TAB 1 Refill Prov:REBECCA GARCIA MD 10/06/25 Bacitracin (Bacitracin) 500 Unit/Gram Oint...g., 0 GM TP Q8H, #1 GM 1 Refill TO BE APPLIED TOPICALLY THREE TIMES DAILY Prov:REBECCA GARCIA MD 10/06/25 Past Medical History Past Medical History: Diabetes-Type II, Hypotension, Liver Disease, Renal Disese Additional Past Medical Hx: ESOPHOGEAL VARICES, SEPSIS, hx acute renal failure requiring dialysis Surgical History: Other Surgical History Other: BOWEL SURGERY, FISUTLA REPAIR-OSTOMY History: Not Applicable RN Note Reviewed/Agreed w/PFSH: Yes Review of System Dictation CONSTITUTIONAL: NEGATIVE EXCEPT FOR HPI HEAD/FACE: NEGATIVE EXCEPT FOR HPI EENT: NEGATIVE EXCEPT FOR HPI RESPIRATORY: NEGATIVE EXCEPT FOR HPI SHORTNESS A BREATH GASTROINTESTINAL/ABDOMINAL: NEGATIVE EXCEPT FOR HPI ABDOMINAL DISTENTION WITH SEVERE PAIN GENITOURINARY: NEGATIVE EXCEPT FOR HPI MUSCULOSKELETAL: NEGATIVE EXCEPT FOR HPI INTEGUMENTARY: NEGATIVE EXCEPT FOR HPI NEUROLOGICAL/PSYCH: NEGATIVE EXCEPT FOR HPI HEMATOLOGIC/LYMPHATIC: NEGATIVE EXCEPT FOR HPI ALL SYSTEMS NEGATIVE, EXCEPT NOTED ABOVE. 13 POINT REVIEW OF SYSTEMS ASSESSED AND ALL NEGATIVE EXCEPT FOR ABOVE. Initial Vital Sign VS Vital Signs Date Time Temp Pulse Resp B/P (MAP) Pulse Ox O2 Delivery O2 Flow Rate FiO2 10/07/25 18:48 97.9 101 20 127/78 99 Room Air 0 10/07/25 20:06 21 Physical Exam Dictation VITAL SIGNS REVIEWED GENERAL APPEARANCE: ALERT, ORIENTED X 3, PATIENT STATES SHE HAS SEVERE PAIN/10/10 TO HER ABDOMEN. SHE ALSO FEELS SHORT OF BREATH. SHE APPEARS CHRONICALLY ILL AND DEBILITATED. HEAD AND FACE: NON-TRAUMATIC. EYES: PERRL, PINK CONJUNCTIVAS, EYELID NO TRAUMA, ANTERIOR CHAMBER WITH ARCUS SENILIS. EARS: PINNAS INTACT AND NO SIGNS OF TRAUMA OR ERYTHEMA EAR CANALS CLEAR AND NO DISCHARGE TM NO ERYTHEMA NOSE: NO DISCHARGE, NO BLEEDING. OROPHARYNX: MOUTH NORMAL, TONGUE PINK, PHARYNX CLEAR,NO ERYTHEMA, TONSILS NO EXUDATES, NO ABSCESSES NOTED, MUCOUS MEMBRANE MOIST NECK: SUPPLE, NON-TENDER, NO THYROMEGALY, NO MASSES, NO JVD, NO BRUITS BREAST:DEFERRED CHEST:NO TENDERNESS, NO CREPITUS, NO PARADOXICAL MOVEMENT, NO RETRACTIONS LUNGS:CLEAR, WELL-VENTILATED, SYMMETRIC, NO RALES, NO WHEEZING, NO RHONCHI, NO STRIDOR, GOOD BREATH SOUNDS BILATERALLY HEART: REGULAR RATE, REGULAR RHYTHM, NO MURMUR, NO GALLOPS VASCULAR: NO PERIPHERAL EDEMA, ABDOMEN: SOFT, POSITIVE BOWEL SOUNDS, DISTENDED, NO GUARDING, NONTENDER, NO REBOUND, NO MASSES NO HEPATOMEGALY, NO SPLENOMEGALY, NO ARMENDARIZ'S SIGN, NO HERNIAS. ILEOSTOMY IN PLACE RECTAL: DEFERRED GENITAL: DEFERRED NEUROLOGICAL: NORMAL SPEECH, MOTOR FUNCTION INTACT, SENSORY FUNCTION INTACT MUSCULOSKELETAL: NECK NONTENDER, FULL RANGE OF MOTION, BACK NONTENDER, FULL RANGE OF MOTION, EXTREMITIES: NONTENDER, FULL RANGE OF MOTION SKIN: COLOR PINK, DRY, NO TURGOR, NO RASH, NO LACERATIONS, NO ABRASIONS, NO CONTUSIONS. LYMPHATIC: DEFERRED Results (Laboratory/Radiology) Laboratory/Radiology Laboratory Tests Test 10/07/25 19:10 10/07/25 19:30 Lactic Acid Level 2.0 mmol/L (0.8-2.5) White Blood Count 5.6 K/uL (4.8-10.8) Red Blood Count 2.93 MIL/uL (4.00-5.50) L Hemoglobin 9.3 g/dL (12.0-16.0) L Hematocrit 29.9 % (36-48) L Mean Corpuscular Volume 102.0 fL (79-99) H Mean Corpuscular Hemoglobin 31.7 pg (27.0-33.0) Mean Corpuscular Hemoglobin Concent 31.1 g/dL (32.0-36.0) L Red Cell Distribution Width 19.3 % (11.0-15.5) H Platelet Count 137 K/uL (130-400) Mean Platelet Volume 10.2 fL (7.5-10.5) Immature Granulocyte % (Auto) 0.4 % (0-1) Neutrophils (%) (Auto) 72.1 % (40.0-77.0) Lymphocytes (%) (Auto) 14.7 % (21.0-51.0) L Monocytes (%) (Auto) 9.4 % (3.0-13.0) Eosinophils (%) (Auto) 3.0 % (0.0-8.0) Basophils (%) (Auto) 0.4 % (0.0-5.0) Neutrophils # (Auto) 4.1 K/uL (1.8-7.7) Lymphocytes # (Auto) 0.8 K/uL (1.0-4.8) L Monocytes # (Auto) 0.5 K/uL (0.1-1.0) Eosinophils # (Auto) 0.17 K/uL (0.00-0.70) Basophils # (Auto) 0.02 K/uL (0.00-0.20) Absolute Immature Granulocyte (auto 0.02 K/uL (0-1) Nucleated Red Blood Cells 0.0 % (0.0-0.19) Sodium Level 139 mmol/L (136-145) Potassium Level 4.0 mmol/L (3.5-5.1) Chloride Level 110 mmol/L (101-111) Carbon Dioxide Level 21 mmol/L (21-32) Blood Urea Nitrogen 9 mg/dL (7-18) Creatinine 0.8 mg/dL (0.5-1.0) Glomerular Filtration Rate Calc 86 mL/min (>90) Random Glucose 129 mg/dL (70-105) H Total Calcium 7.7 mg/dL (8.5-10.1) L Total Bilirubin 0.4 mg/dL (0.2-1.0) Aspartate Amino Transf (AST/SGOT) 33 U/L (10-37) Alanine Aminotransferase (ALT/SGPT) 17 U/L (12-78) Alkaline Phosphatase 84 U/L (50-136) Troponin I High Sensitivity 9 ng/L (4-50) Total Protein 6.0 g/dL (6.0-8.3) Albumin 2.2 g/dL (3.5-5.0) L Lipase 32 U/L (16-77) intrahepatic/extrahepatic biliary ductal dilatation is identified. Portal vein, hepatic veins, and inferior vena cava are normal in caliber. GALL BLADDER: Gallbladder demonstrates normal wall thickness and smooth contour with homogeneous intraluminal fluid density. No intraluminal mass, calcification, or gallstone is seen. Pericholecystic fat and the cystic duct appear normal. PANCREAS: Pancreas is normal in size, morphology, and attenuation. The main pancreatic duct is not dilated. No peripancreatic fluid collection or inflammatory fat stranding is seen. SPLEEN: Spleen is normal in size, morphology, and attenuation without focal lesion. KIDNEYS: Both kidneys are normal in size, shape, position, and attenuation. No renal mass, calcification, or stone is identified in the renal parenchyma or collecting systems. No hydronephrosis or other signs of obstructive uropathy are detected on either side. GIT /T/ PERITONEAL CAVITY: Stomach is distended but otherwise unremarkable. The gastroesophageal junction, pylorus, and duodenum appear normal. Jejunal and ileal loops show normal distribution, caliber, and wall thickness without evidence of obstruction or significant inflammatory change. The appendix is not thickened and shows no surrounding fat stranding, with no CT evidence of acute appendicitis. There are tiny colonic diverticula without CT signs of diverticulitis. Rectum and large bowel loops are well distended with fecal material, without discrete focal mural thickening or pericolonic stranding. No free intraperitoneal fluid or pneumoperitoneum is identified. Mesenteric fat and omentum are normal. LYMPHNODES: No pathologically enlarged abdominopelvic lymph nodes are identified. RETROPERITONEUM: Both adrenal glands are normal in morphology and attenuation. The abdominal aorta and inferior vena cava are in normal position and caliber without aneurysm or dissection. PELVIS: Urinary bladder wall thickness and contour are normal on the delayed phase, with uniform opacified lumen and no intraluminal filling defects. Uterus appears normal for age. Dominant follicles are present in both ovaries, without adnexal mass or free pelvic fluid. MUSCULOSKELETAL: Visualized osseous structures are unremarkable without acute fracture, destructive lesion, or significant degenerative change. OTHER: Extra-abdominal and paraspinal soft tissues are unremarkable. IMPRESSION: * No CT evidence of acute intra-abdominal or pelvic inflammatory process, obstruction, or perforation to explain the reported periumbilical and epigastric pain with nausea and vomiting. * Hepatomegaly with diffuse hepatic steatosis. Correlate with liver function tests and metabolic risk factors (obesity, diabetes, dyslipidemia, alcohol use); lifestyle and medical risk-factor modification should be considered as per clinical guidelines. * Tiny colonic diverticulosis without diverticulitis and fecal loading of the large bowel, compatible with constipation, which may contribute to abdominal discomfort; correlate with bowel habits and treat constipation as clinically indicated. * Normal pancreas, biliary tree, kidneys, and delayed-phase urinary bladder without evidence of obstructive uropathy, cholecystitis, or renal/collecting system calculus. /[place] CR Chest, 1 View. CLINICAL HISTORY: SHORTNESS A BREATH. COMPARISON: None provided. FINDINGS: LUNGS: The lungs show no infiltrate or other acute finding. PLEURAL SPACES: No pleural effusion or pneumothorax. MEDIASTINUM: The cardiomediastinal silhouette is within normal limits. BONES: No aggressive appearing osseous lesion seen. IMPRESSION: No acute cardiopulmonary pathology is evident. /[place] Labs Reviewed?: Yes EKG: (+) NSR EKG Comment: RHYTHM/HEART RATE 97/AXIS NORMAL/NO ECTOPY ED Course ED Course Orders Procedure Category Date Status Time Cbc With Differential LAB 10/07/25 Complete 18:54 Troponin I High LAB 10/07/25 Complete Sensitivity 18:54 12 Lead Ekg Tracing- EKG 10/07/25 Resulted Technical 18:54 Morphine 2mg Syg PHA 10/07/25 Complete (Morphine 2mg Syg) 19:00 Ondansetron 4mg Inj PHA 10/07/25 Complete (Zofran 4mg Inj) 19:00 Lipase LAB 10/07/25 Complete 18:54 Ct Abdomen W/O CT 10/07/25 Resulted Contrast 18:54 Comprehensive LAB 10/07/25 Complete Metabolic Panel 18:56 Blood Cult BRODY 10/07/25 In Process 19:00 Lactic Acid LAB 10/07/25 Complete 19:00 Chest 1vw RAD 10/07/25 Resulted 19:00 Ceftriaxone 2gm Vial PHA 10/07/25 Complete (Rocephin 2gm Inj) 21:30 0.9% Nacl 500ml PHA 10/07/25 Complete Iv.Soln (Ns 500ml 21:30 Ngt To Low CPOE 10/07/25 Transmitted Intermittent Suctn 21:39 Metoclopramide 10 PHA 10/07/25 Complete Mg/2 Ml Vial (Reglan 1 22:00 Edm Admit Bridge Order ADM 10/07/25 Verified 22:02 Current Medications Medications (Trade) Dose Ordered Sig/Gregory Route PRN Reason Start Time Stop Time Status Last Admin Dose Admin Ceftriaxone Sodium (Rocephin 2gm Inj) 2 gm ONCE ONCE IVPB 10/07/25 21:30 10/07/25 21:31 DC Metoclopramide HCl (regLAN 10MG IV) 10 mg ONCE ONCE IVP 10/07/25 22:00 10/07/25 22:01 DC Morphine Sulfate (morPHINE 2MG SYG) 2 mg ONCE ONCE IVP 10/07/25 19:00 10/07/25 19:01 DC 10/07/25 19:38 Ondansetron HCl (zoFRAN 4MG INJ) 4 mg ONCE ONCE IVP 10/07/25 19:00 10/07/25 19:01 DC 10/07/25 19:38 Sodium Chloride 500 ml @ 0 mls/hr ONCE ONCE IV 10/07/25 21:30 10/07/25 21:31 DC Vital Signs Date Time Temp Pulse Resp B/P (MAP) Pulse Ox O2 Delivery O2 Flow Rate FiO2 10/07/25 20:06 99.0 100 18 111/66 100 Room Air* 0 21 10/07/25 18:48 97.9 101 20 127/78 99 Room Air 0 2140/SPOKE TO PATIENT AND HER DAUGHTER AT LENGTH REGARDING CLINICAL FINDINGS. THEY ARE AWARE OF THE ILEUS AND NEED FOR NG TUBE, NPO AND MEDICAL MANAGEMENT. SHE AGREED TO STAY. 2201/SPOKE WITH [facility] REGARDING ILEUS RECENT ILEOSTOMY AND INTERVENTIONS IN TO INCLUDE NG TUBE SHE AGREED TO ADMIT. HEART Score Response (Comments) Value History: Low suspicion (0) 0 Age: 45-65yrs (+1) 1 Initial Troponin: Normal limit (0) 0 Total 1 Medical Decision Making MDM MDM: DIFFERENTIAL DIAGNOSIS: SMALL-BOWEL OBSTRUCTION/ILEUS/SURGICAL SITE ABSCESS/ELECTROLYTE IMBALANCE/DEHYDRATION/PNEUMONIA/BRONCHITIS/ACS/AMI RATIONALE: TESTS CONSIDERED AND ORDERED SECONDARY TO SHARED DECISION MAKING INCLUDE: LABS, ECG AND RADIOLOGY PREVIOUS OUTSIDE RECORDS REVIEWED: OLD ER VISIT MEDICATIONS-PER MEDICATION RECONCILIATION NEED FOR HOSPITALIZATION: PATIENT DOES MEET CRITERIA FOR HOSPITALIZATION. PATIENT WILL NEED BE ADMITTED FOR MANAGEMENT OF HER ILEUS, NG TUBE MAINTENANCE REHYDRATION FOR SEPSIS NEED FOR EMERGENCY MAJOR/MINOR SURGERY: NO THERE ARE NO SOCIAL CONCERNS WITH THIS PATIENT. PRESCRIPTION DRUG MANAGEMENT PRESCRIPTIONS WILL INCLUDE SYMPTOMATIC CARE PATIENT'S PRIOR EXTERNAL MEDICAL RECORDS FROM OTHER ER VISITS WERE REVIEWED BY ME INDICATED. PRIOR TESTING AND RESULTS FROM PREVIOUS VISITS WERE REVIEWED. PRIOR TESTS WERE TAKEN INTO ACCOUNT WITH MEDICAL DECISION MAKING AND RESOURCE UTILIZATION, INDEPENDENT HISTORIAN/HISTORIANS WERE USED TO OBTAIN COMPLETE MEDICAL HISTORY. I INDEPENDENTLY INTERPRETED THE TEST THAT WERE PERFORMED, RESULTS WERE REVIEWED BY ME AND CONSIDERED FINDINGS ON RADIOLOGY IF ORDERED. MEDICAL MANAGEMENT AND EXAMINATION INTERPRETATION DISCUSSIONS WERE HAD BY ME WITH OTHER QUALIFIED HEALTHCARE PROFESSIONALS INDICATED FOR THE PATIENT'S CARE. DX & DISP Disposition: Inpatient Decision to Admit Time: 21:42 Departure Impression: Primary Impression: Ileus following gastrointestinal surgery Additional Impressions: Chronic anemia, Hypocalcemia, Dehydration, Ileostomy in place Condition: Stable Referrals: SUSAN SEBASTIAN DO (PCP) Time of Disposition: 21:42 I have reviewed the case, and I agree with, Diagnosis and Plan ALHAJI SHINE OPERATIONS OFFICER AFLOAT Oct 07, 2025 19:03
--- NOTE | 2025-10-07 19:05 | EKG ---
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
[2025-10-07 19:37] LABS: IMMATURE GRANULOCYTE ABSOLUTE 0.02 K/uL (0-1); NUCLEATED RED BLOOD CELLS 0.0 % (0.0-0.19); PLATELET COUNT (AUTO) 137 K/uL (130-400); RED BLOOD CELL COUNT(AUTO) 2.93 MIL/uL (4.00-5.50); RED CELL DISTRIBUTION WIDTH 19.3 % (11.0-15.5); WHITE BLOOD COUNT (AUTO) 5.6 K/uL (4.8-10.8)
[2025-10-07 19:46] LABS: CREATININE 0.8 mg/dL (0.5-1.0); GLOMERULAR FILTR. RATE CALC 86.0 mL/min (>90); GLUCOSE,RANDOM 129.0 mg/dL (70-105); SODIUM SERUM 139.0 mmol/L (136-145); UREA NITROGEN, BLOOD 9.0 mg/dL (7-18)
[2025-10-07 19:51] LABS: ASPARTATE AMINOTRANSFERASE 33.0 U/L (10-37); TOTAL PROTEIN, SERUM 6.0 g/dL (6.0-8.3)
--- NOTE | 2025-10-07 21:07 | HMCIMG ---
EXAM: CT Abdomen Without IV contrast CLINICAL HISTORY: Patient presents with diffuse abdominal pain and nausea. TECHNIQUE: Axial computed tomography images of the abdomen without intravenous contrast. CONTRAST: No IV contrast. COMPARISON: CT abdomen and pelvis 10/01/2025 10:53 PM FINDINGS: LUNG BASES: Moderate bilateral pleural effusions are present. LIVER: Nodular hepatic margins suggest cirrhotic changes, stable. GALLBLADDER AND BILE DUCTS: Calcified gallbladder wall without radiodense calculus or cholecystitis, stable. No biliary ductal dilatation is evident. PANCREAS: Unremarkable. SPLEEN: Enlarged measures 13cm. ADRENAL GLANDS: Unremarkable. KIDNEYS AND URETERS: Unremarkable. No hydronephrosis or nephrolithiasis. STOMACH AND BOWEL: Mildly distended small bowel loops without transition point. Scattered colonic diverticulosis. Small hiatus hernia, stable. Unremarkable appearance of the stomach otherwise. No evidence of bowel obstruction. No evidence suggesting enteritis or colitis. PERITONEUM: Markedly progressed gross ascites and mesenteric fat stranding. Generalized anasarca is present. Removal of pigtail catheter from subsplenic collection with resultant mild peritoneal thickening. No free air. LYMPH NODES: No lymphadenopathy is evident. VASCULATURE: No evidence of abdominal aortic aneurysm. BONES: No acute osseous abnormality. IMPRESSION: Markedly progressed gross ascites and mesenteric fat stranding with generalized anasarca, concerning for worsening fluid overload. New moderate bilateral pleural effusions. Nodular hepatic margins consistent with cirrhotic changes, stable. Mildly distended small bowel loops without transition point, likely ileus/enteritis, new from prior. Calcified gallbladder wall, stable. Post ileostomy status Stable scattered colonic diverticulosis. Small hiatus hernia, stable. Removal of pigtail catheter from subsplenic collection with resultant mild peritoneal thickening. No acute intra abdominal abnormality otherwise. /[place]
--- NOTE | 2025-10-07 21:11 | HMCIMG ---
EXAM: CR Chest, 1 View. CLINICAL HISTORY: SHORTNESS A BREATH. COMPARISON: None provided. FINDINGS: LUNGS: The lungs show no infiltrate or other acute finding. PLEURAL SPACES: No pleural effusion or pneumothorax. MEDIASTINUM: The cardiomediastinal silhouette is within normal limits. BONES: No aggressive appearing osseous lesion seen. IMPRESSION: No acute cardiopulmonary pathology is evident. /[place]
--- NOTE | 2025-10-07 22:30 | NUR ---
Jon instrument maker and repairer and family at bedside.
[2025-10-07] MEDS: 0.9% NACL 500ML IV.SOLN 500 ML IV ONE (22:54)
--- NOTE | 2025-10-07 23:20 | HP ---
[facility] Date of Service: Oct 07, 2025 Time of Service: 22:35 PCP: Jarod Andre HISTORY OF PRESENT ILLNESS: This is a 55 year old female Diabetes, liver cirrhosis, esophageal varices, DVT, perisplenic abscess, acute gastritis, peritonitis with ESBL and E coli infection septic shock with a past surgical history of cholecystectomy, robotic sigmoid resection with takedown of colovesical fistula with a recent perforation of colonic anastomosis , diagnostic laparoscopy ,drain placement,abdominal wash out and creation of diverting loop ileostomy who was brought by EMS to the ED for complaints of abdominal pain and abdominal distention.Patient reports she was discharged yesterday from this facility even if she was not feeling well because she continues to have abdominal pain and distention she said and daughter was at bedside saying patient weighs 124 kg on admission and she was discharged home weighing 140 kgs and has been telling rounding that patient is retaining fluids but still discharged her anyway she said.Patient states while at home she was unable to keep anything down because every time she eats her abdomen hurts and she became nauseated. Seen and examined patient in the ER awake,alert and coherent,patient appears uncomfortable and crying.Patient has diffuse abdominal tenderness on palpation.Patient has an Ileostomy which is patent and normally functioning.Patient denies fever,chills,vomiting,chest pain,palpitation and cough.Patient states she has occasional shortness of breath.Latest V/S latest vital signs temperature 99, heart rate 98, blood pressure 106/61 saturation 100% on room air. Labs: WBC 5.6, neutrophils 72, hemoglobin 9, hematocrit 29 and platelet count 137. Lactic acid 2.0, glucose 129, total calcium 7.7 albumin 2.2 nine the rest of the chemistries normal. Chest x-ray result revealed no acute cardiopulmonary pathology is evident. CT abdomen without contrast result revealed markedly progressed gross ascites and mesenteric fat stranding with generalized anasarca, concerning for worsening fluid overload. Moderate bilateral pleural effusions. Nodular hepatic margins consistent with cirrhotic changes stable. Distended small bowel loops without transition point likely ileus/enteritis new from prior. Calcified gallbladder wall stable. Post Ileostomy status. Stable scattered colonic diverticulosis. Small hiatus hernia stable removal of pigtail catheter from sub splenic collection with resultant mild peritoneal thickening. No acute intra-abdominal abnormality otherwise. While in the ER patient received morphine 2 mg IV, Zofran 4 mg IV Rocephin 2 g IV NS 500 IV bolus and Reglan 10 mg IV.Patient is pending for NGT insertion.Er called and recommended to admit the patient. REVIEW OF SYSTEMS CONSTITUTIONAL: Denies fevers, chills, or night sweats. No unintentional weight loss reported. NEUROLOGICAL: Denies headache, amaurosis fugax, motor weakness, sensory deficit, vertigo/spinning sensation, gait abnormalities, or tremors. ENT: No hearing loss, otalgia, otorrhea, rhinitis, rhinorrhea, hoarseness, or sore throat. CARDIOVASCULAR: Denies any exertional angina, dyspnea on exertion, orthopnea, paroxysmal nocturnal dyspnea, palpitations, life-threatening arrhythmias, claudication. PULMONARY: Denies any shortness of breath, cough, phlegm/sputum, hemoptysis, pleuritic chest pain. SLEEP: Denies morning headaches, daytime somnolence or napping. Denies difficulty falling asleep, staying asleep, waking from sleep. Denies knowledge of snoring. GASTROINTESTINAL: Complains of abdominal distention, nausea and abdominal pain Denies any type of dysphagia to either liquids or solids. Denies vomiting, pyrosis, early satiety, diarrhea, constipation, or changes in stool consistency or caliber. Denies coffee-ground emesis, hematemesis, hematochezia, or melanotic stools. GENITOURINARY: Denies frequency, urgency, nocturia, hematuria or incontinence (Storage/Irritative symptoms.) Low urinary stream, straining to void, urinary intermittency or hesitancy, splitting of the voiding stream, terminal dribbling. ENDOCRINOLOGIC: Denies polyuria, polydipsia, polyphagia or heat/cold intolerances. HEMATOLOGIC: Denies thrombophilia/previous clots, or coagulopathy/bleeding disorders. ONCOLOGIC: Denies personal history of malignancy. DERMATOLOGIC: Denies rashes or pruritus. PSYCHIATRIC: Denies any suicidal or homicidal ideation. Denies hallucinations. PAST MEDICAL HISTORY: [ Diabetes, liver cirrhosis, esophageal varices, DVT, perisplenic abscess, acute gastritis, peritonitis with ESBL and E coli infection septic shock ] PAST SURGICAL HISTORY: [ Status post guided drainage on 08/09/2025, EGD with findings of acute gastritis, right knee surgery, on 07/09/2025 repair of colovesicular fistula with sigmoid colon resection and anastomosis. 07/21/2025 peritonitis better perforation of the colonic anastomosis was post diagnostic laparoscopy, abdominal washout, drain placement and diverting loop ileostomy creation by Seen leidy and cholecystectomy] PAST SOCIAL HISTORY: [ Patient denies alcohol tobacco and recreational drug use patient lives with daughter Cristiana] FAMILY HISTORY: [ Hypertension, diabetes, stroke, cancer, asthma and Alzheimer's disease. ] Coded Allergies: aspirin (Unverified Allergy, Unknown, 07/02/25) bismuth subsalicylate (Unverified Allergy, Unknown, 07/02/25) pork derived (porcine) (Unverified Allergy, Unknown, 07/02/25) Uncoded Allergies: BISMUTH (Allergy, Unknown, 07/02/25) PHYSICAL EXAM GENERAL APPEARANCE: The patient is awake, alert, and oriented, in no acute cardiopulmonary distress. NEUROLOGICAL: Cranial nerves II-XII grossly intact. Motor is 5/5 in bilateral upper and lower extremities proximal to distal. No sensory deficits. HEENT: Face is symmetric. Pupils are equal and reactive. Extraocular movements are intact. NECK: Supple. No JVD. No thyromegaly. No submental, submandibular, pre- /postauricular, occipital or supraclavicular lymphadenopathy. CHEST: Normal chest expansion. No Telemetry. LUNGS: Absence of any rales, rhonchi or any wheezing. CARDIOVASCULAR: Regular. S1 and S2 normal. No appreciable rubs, murmurs or gallops. ABDOMEN: Positive hypoactive bowel sounds, diffuse tenderness x4 abdominal quadrants patient+ Ileostomy Soft and distended .There is no rebound, voluntary guarding, or rigidity. : Deferred. No Dueñas. EXTREMITIES: Non-edematous and not cyanotic. No clubbing. Good capillary refill. SKIN: No skin breakdown. Vital Sign (Last 24 Hours) 10/07/25 20:06 Temp 99.0 Pulse 100 Resp 18 B/P (MAP) 111/66 Pulse Ox 100 O2 Delivery Room Air* O2 Flow Rate 0 FiO2 21 LABS: Laboratory: Test 10/07/25 19:30 10/07/25 19:10 Range/Units White Blood Count 5.6 4.8-10.8 K/uL Red Blood Count 2.93 L 4.00-5.50 MIL/uL Hemoglobin 9.3 L 12.0-16.0 g/dL Hematocrit 29.9 L 36-48 % Mean Corpuscular Volume 102.0 H 79-99 fL Mean Corpuscular Hemoglobin 31.7 27.0-33.0 pg Mean Corpuscular Hemoglobin Concent 31.1 L 32.0-36.0 g/dL Red Cell Distribution Width 19.3 H 11.0-15.5 % Platelet Count 137 130-400 K/uL Mean Platelet Volume 10.2 7.5-10.5 fL Immature Granulocyte % (Auto) 0.4 0-1 % Neutrophils (%) (Auto) 72.1 40.0-77.0 % Lymphocytes (%) (Auto) 14.7 L 21.0-51.0 % Monocytes (%) (Auto) 9.4 3.0-13.0 % Eosinophils (%) (Auto) 3.0 0.0-8.0 % Basophils (%) (Auto) 0.4 0.0-5.0 % Neutrophils # (Auto) 4.1 1.8-7.7 K/uL Lymphocytes # (Auto) 0.8 L 1.0-4.8 K/uL Monocytes # (Auto) 0.5 0.1-1.0 K/uL Eosinophils # (Auto) 0.17 0.00-0.70 K/uL Basophils # (Auto) 0.02 0.00-0.20 K/uL Absolute Immature Granulocyte (auto 0.02 0-1 K/uL Nucleated Red Blood Cells 0.0 0.0-0.19 % Sodium Level 139 136-145 mmol/L Potassium Level 4.0 3.5-5.1 mmol/L Chloride Level 110 101-111 mmol/L Carbon Dioxide Level 21 21-32 mmol/L Blood Urea Nitrogen 9 7-18 mg/dL Creatinine 0.8 0.5-1.0 mg/dL Glomerular Filtration Rate Calc 86 >90 mL/min Random Glucose 129 H 70-105 mg/dL Total Calcium 7.7 L 8.5-10.1 mg/dL Total Bilirubin 0.4 0.2-1.0 mg/dL Aspartate Amino Transf (AST/SGOT) 33 10-37 U/L Alanine Aminotransferase (ALT/SGPT) 17 12-78 U/L Alkaline Phosphatase 84 50-136 U/L Troponin I High Sensitivity 9 4-50 ng/L Total Protein 6.0 6.0-8.3 g/dL Albumin 2.2 L 3.5-5.0 g/dL Lipase 32 16-77 U/L Lactic Acid Level 2.0 0.8-2.5 mmol/L DIAGNOSTICS / RADIOLOGY: [ ] ASSESSMENT: Acute abdominal pain POA Severe volume overload with worsening ascites per CT POA Mesenteric fat stranding likely inflammatory/ edematous process per CT POA Ileus post abdominal surgery POA Ileostomy status POA Protein calorie malnutrition POA Moderate bilateral pleural effusion CP POA Chronic anemia POA Diabetes POA PLAN: We will admit patient in medical surgical We will keep nothing by mouth We will continue Rocephin 1 gram IV bid for empiric coverage We will start NS @ 50 ml / hr x2 bags and re evaluate We will start on Protonix 40 mg IV daily for GI prophylaxis We will replace electrolytes as needed per protocol We will start on insulin sliding scale AC & HS with hypoglycemia protocol We will add prn medication for fever,pain,cough , nausea and vomiting We will reconcile home meds once medlist available NGT pending per ER recommendation We will seek General surgery consultation We will seek Gastroenterology consultation We will request labs in am Further orders to follow depending on above results Case discussed with attending physician and came up with above treatment and plan of care. ADVANCED CARE PLANNING 1. Which of the following were discussed? Hospice Care - No Therapeutic options - Yes Advance Directives - No Other discussions - 2. Discussed with who? Patient 3. Voluntary nature of this service was explained to the patient? Yes 4. Amount of time spent - ___22 min____ 5. Reviewed by Physician? (if this service was performed by NPP) Yes Patient seen and examined by me. Agree with note by DUPLICATING MACHINE SERVICER SEE ADDITIONAL ORDERS PER CHART DISCUSSED WITH NURSING STAFF CYNTHIA ALEXANDERP Oct 07, 2025 23:20
[2025-10-07] MEDS ORDERED: GLUCAGON 1MG KIT 1 MG ML IM PRN (23:30)
[2025-10-08] VITALS (7 sets, daily range): BP systolic 126–141; BP diastolic 60–77; PULSE 80–98; RESP 18–20; TEMP 97.9–98.3; O2SAT 99–100
[2025-10-08] MEDS: LACTATED RINGERS 1000ML 1,000 ML IV SCH (01:34)
[2025-10-08 04:43] LABS: IMMATURE GRANULOCYTE ABSOLUTE 0.04 K/uL (0-1); NUCLEATED RED BLOOD CELLS 0.0 % (0.0-0.19); PLATELET COUNT (AUTO) 136 K/uL (130-400); RED BLOOD CELL COUNT(AUTO) 2.79 MIL/uL (4.00-5.50); RED CELL DISTRIBUTION WIDTH 19.2 % (11.0-15.5); WHITE BLOOD COUNT (AUTO) 5.5 K/uL (4.8-10.8)
[2025-10-08 05:13] LABS: ASPARTATE AMINOTRANSFERASE 33.0 U/L (10-37); CREATININE 0.8 mg/dL (0.5-1.0); GLOMERULAR FILTR. RATE CALC 86.0 mL/min (>90); GLUCOSE,RANDOM 93.0 mg/dL (70-105); SODIUM SERUM 139.0 mmol/L (136-145); TOTAL PROTEIN, SERUM 5.7 g/dL (6.0-8.3); UREA NITROGEN, BLOOD 10.0 mg/dL (7-18)
[2025-10-08] MEDS ORDERED: PHARMACY COMMUNICATION 1 EACH EACH MISC SCH (10:30)
--- NOTE | 2025-10-08 10:35 | NUR ---
DCP:HOME Pt was recently DC on 10/06 and returned the next day. Pt was staying at her mother's house with her daughter due to home being wheelchair accessible. Pt has a walker, hospital bed, shower chair, and wheelchair at the home. Pt does require assistance with ADLs and daughter tends to assist. PCP is Dr. Jes Olivera and uses [facility] for any RX needs. At DC pt will want to go home and family can assist with transportation.
--- NOTE | 2025-10-08 10:46 | CONS ---
CONSULT NOTE: Consulting physician:Dr Castillo Consulting service: General surgery Reason for consultation: Postoperative ileus History of present illness: This is a 55-year-old female known to our practice that has been reconsulted after re presenting to the hospital with concerns of abdominal distention and discomfort. Upon initial presentation patient is noted to have concerning ileus and NG tube was placed. Patient however continued with ostomy output since recent discharge. Patient however reporting more of a fullness. Upon reviewing imaging concerns for increased ascites noted. On exam patient continues to have high output. NG in place with minimal no output. WBCs unremarkable hemoglobin stable. Albumin remains low. But all electrolytes stable Review of systems: General: No Fever, No Chills, No Night Sweats, No Fatigue, No Malaise, No Appe tite, No Other HEENT: No Head Aches, No Visual Changes, No Eye Pain, No Ear Pain, No Dysphasia, No Sinus Congestion, No Post Nasal Drip, No Sore Throat, No Other Pulmonary: No Dyspnea, No Cough, No Pleuritic Chest Pain, No Other Cardiovascular: No: Chest Pain, Palpitations, Orthopnea, Paroxysmal No Dyspnea, Edema, Lt Headedness, Other Gastrointestinal: No: Nausea, Vomiting, Diarrhea, Constipation, Melena, Hematochezia, Other Genitourinary: No Dysuria, No Frequency, No Incontinence, No Hematuria, No Rete ntion, No Other Musculoskeletal: No: other, neck pain, shoulder pain, arm pain, back pain, hand pain, leg pain, foot pain Skin: No Urticaria, No Rash, No Other Neurological: No: Weakness, Numbness, Incoordination, Change in speech, Confusion, Seizures, Other Physical exam: General: Awake alert and oriented NG in place Heart: Regular rate and rhythm} Lungs: Clear to auscultation no distress Abdomen: [Soft, nontender, nondistended appropriately functioning ostomy Assessment: This is a 55-year-old female with concerns of abdominal distention with noted ascites within abdomen with resolving ileus Plan: At this point in time NG tube to be replaced From surgical standpoint our recommendation will be for evaluation for potential paracentesis after reviewing imaging with Dr. Gann Patient could benefit from albumin supplementation due to lack of protein intake No immediate plans for surgical intervention Gallbladder appears stable and labs appeared normal so no emergent need for cholecystectomy this hospitalization Dr. Gann and surgical team to follow patient closely nursing report any further acute events Surgical case has been discussed with my supervising physician in the above plan was formulated and agreed upon Supervising physicians evaluation the patient be done within next 24 hours We appreciate the hospitalist team for us to participate in patient's care. Greater than 55 minutes of time spent patient, reviewing chart, working on documentation BENEDICTO OBRIEN Jr. PAC Oct 08, 2025 10:46
--- NOTE | 2025-10-08 11:44 | NUR ---
MORNING MEDS MIDODRINE NOT ADMINISTERED PT BP AT 136/60
[2025-10-08] MEDS: DICYCLOMINE HCL 20 MG TAB PO SCH (13:06)
[2025-10-08] MEDS: SODIUM BICARBONATE 650 MG TAB PO SCH (13:06)
--- NOTE | 2025-10-08 13:40 | PN ---
[facility] PROGRESS NOTE Date of Service: Oct 08, 2025 Time of Service: 13:08 SUBJECTIVE: This is a 55 year old female Diabetes, liver cirrhosis, esophageal varices, DVT, perisplenic abscess, acute gastritis, peritonitis with ESBL and E coli infection septic shock with a past surgical history of cholecystectomy, robotic sigmoid resection with takedown of colovesical fistula with a recent perforation of colonic anastomosis , diagnostic laparoscopy ,drain placement,abdominal wash out and creation of diverting loop ileostomy who was brought by EMS to the ED for complaints of abdominal pain and abdominal distention.Patient reports she was discharged yesterday from this facility even if she was not feeling well because she continues to have abdominal pain and distention she said and daughter was at bedside saying patient weighs 124 kg on admission and she was discharged home weighing 140 kgs and has been telling riri CERVANTES that patient is retaining fluids but still discharged her anyway she said.Patient states while at home she was unable to keep anything down because every time she eats her abdomen hurts and she became nauseated. Seen and examined patient in the ER awake,alert and coherent,patient appears uncomfortable and crying.Patient has diffuse abdominal tenderness on palpation.Patient has an Ileostomy which is patent and normally functioning.Patient denies fever,chills,vomiting,chest pain,palpitation and cough.Patient states she has occasional shortness of breath.Latest V/S latest vital signs temperature 99, heart rate 98, blood pressure 106/61 saturation 100% on room air. Labs: WBC 5.6, neutrophils 72, hemoglobin 9, hematocrit 29 and platelet count 137. Lactic acid 2.0, glucose 129, total calcium 7.7 albumin 2.2 nine the rest of the chemistries normal. Chest x-ray result revealed no acute cardiopulmonary pathology is evident. CT abdomen without contrast result revealed markedly progressed gross ascites and mesenteric fat stranding with generalized anasarca, concerning for worsening fluid overload. Moderate bilateral pleural effusions. Nodular hepatic margins consistent with cirrhotic changes stable. Distended small bowel loops without transition point likely ileus/enteritis new from prior. Calcified gallbladder wall stable. Post Ileostomy status. Stable scattered colonic diverticulosis. Small hiatus hernia stable removal of pigtail catheter from sub splenic collection with resultant mild peritoneal thickening. No acute intra-abdominal abnormality otherwise. While in the ER patient received morphine 2 mg IV, Zofran 4 mg IV Rocephin 2 g IV NS 500 IV bolus and Reglan 10 mg IV.Patient is pending for NGT insertion.Er called and recommended to admit the patient. 10/08/2025: Patient was seen and examined this morning at bedside. The patient is accompanied by her daughter. The patient is on NG tube, which has very minimal output. The patient appears uncomfortable with the NG tube, and complains that it is bothering her and causing her pain. The patients daughter states the patient is not regularly using the restroom to urinate. The patient reports she believes she is retaining urine. We will order a bladder scan and follow up with the results. The patients abdomen appears distended upon physical examination. Patient reports tenderness bilaterally in the flank regions. Bowel sounds were hypoactive upon auscultation. No peripheral edema is noted. Heart sounds are h eard, no murmurs appreciated. Interventional radiology has been called for possible paracentesis due to the patients ascites. The patient will be started on daily IV Lasix and Aldactone. We will continue to monitor her electrolytes daily, and correct accordingly. Pregabalin has been added to her pain regimen. The patient denies chest pain, shortness of breath, nausea, vomiting, fever, chills. REVIEW OF SYSTEMS CONSTITUTIONAL: Denies fevers, chills, or night sweats. No unintentional weight loss reported. NEUROLOGICAL: Denies headache, amaurosis fugax, motor weakness, sensory deficit, vertigo/spinning sensation, gait abnormalities, or tremors. ENT: No hearing loss, otalgia, otorrhea, rhinitis, rhinorrhea, hoarseness, or sore throat. CARDIOVASCULAR: Denies any exertional angina, dyspnea on exertion, orthopnea, paroxysmal nocturnal dyspnea, palpitations, life-threatening arrhythmias, claudication. PULMONARY: Denies any shortness of breath, cough, phlegm/sputum, hemoptysis, pleuritic chest pain. SLEEP: Denies morning headaches, daytime somnolence or napping. Denies difficulty falling asleep, staying asleep, waking from sleep. Denies knowledge of snoring. GASTROINTESTINAL: Complains of abdominal distention, and abdominal pain. Denies any type of dysphagia to either liquids or solids. Denies vomiting, pyrosis, early satiety, diarrhea, constipation, or changes in stool consistency or caliber. Denies coffee-ground emesis, hematemesis, hematochezia, or melanotic stools. GENITOURINARY: Denies frequency, urgency, nocturia, hematuria or incontinence (Storage/Irritative symptoms.) Low urinary stream, straining to void, urinary intermittency or hesitancy, splitting of the voiding stream, terminal dribbling. ENDOCRINOLOGIC: Denies polyuria, polydipsia, polyphagia or heat/cold intolerances. HEMATOLOGIC: Denies thrombophilia/previous clots, or coagulopathy/bleeding diso rders. ONCOLOGIC: Denies personal history of malignancy. DERMATOLOGIC: Denies rashes or pruritus. PSYCHIATRIC: Denies any suicidal or homicidal ideation. Denies hallucinations. PHYSICAL EXAM GENERAL APPEARANCE: The patient is awake, alert, and oriented, in no acute cardiopulmonary distress. NEUROLOGICAL: Cranial nerves II-XII grossly intact. Motor is 5/5 in bilateral upper and lower extremities proximal to distal. No sensory deficits. HEENT: Face is symmetric. Pupils are equal and reactive. Extraocular movements are intact. NECK: Supple. No JVD. No thyromegaly. No submental, submandibular, pre- /postauricular, occipital or supraclavicular lymphadenopathy. CHEST: Normal chest expansion. No Telemetry. LUNGS: Absence of any rales, rhonchi or any wheezing. CARDIOVASCULAR: Regular. S1 and S2 normal. No appreciable rubs, murmurs or gallops. ABDOMEN: Positive hypoactive bowel sounds, diffuse tenderness x4 abdominal quadrants patient+ Ileostomy Soft and distended .There is no rebound, voluntary guarding, or rigidity. : Deferred. No Dueñas. EXTREMITIES: Non-edematous and not cyanotic. No clubbing. Good capillary refill. SKIN: No skin breakdown. Vital Signs (last 8hr) Date Time Temp Pulse Resp B/P (MAP) Pulse Ox O2 Delivery O2 Flow Rate FiO2 10/08/25 08:00 98.2 86 18 126/60 100 Room Air LABS: Laboratory: Test 10/08/25 05:34 10/08/25 04:33 10/07/25 19:30 10/07/25 19:10 Range/Units Whole Blood Glucose 91 70-110 MG/DL White Blood Count 5.5 4.8-10.8 K/uL Red Blood Count 2.79 L 4.00-5.50 MIL/uL Hemoglobin 8.9 L 12.0-16.0 g/dL Hematocrit 28.3 L 36-48 % Mean Corpuscular Volume 101.4 H 79-99 fL Mean Corpuscular Hemoglobin 31.9 27.0-33.0 pg Mean Corpuscular Hemoglobin Concent 31.4 L 32.0-36.0 g/dL Red Cell Distribution Width 19.2 H 11.0-15.5 % Platelet Count 136 130-400 K/uL Mean Platelet Volume 10.1 7.5-10.5 fL Immature Granulocyte % (Auto) 0.7 0-1 % Neutrophils (%) (Auto) 69.7 40.0-77.0 % Lymphocytes (%) (Auto) 17.1 L 21.0-51.0 % Monocytes (%) (Auto) 8.7 3.0-13.0 % Eosinophils (%) (Auto) 3.1 0.0-8.0 % Basophils (%) (Auto) 0.7 0.0-5.0 % Neutrophils # (Auto) 3.8 1.8-7.7 K/uL Lymphocytes # (Auto) 0.9 L 1.0-4.8 K/uL Monocytes # (Auto) 0.5 0.1-1.0 K/uL Eosinophils # (Auto) 0.17 0.00-0.70 K/uL Basophils # (Auto) 0.04 0.00-0.20 K/uL Absolute Immature Granulocyte (auto 0.04 0-1 K/uL Nucleated Red Blood Cells 0.0 0.0-0.19 % Sodium Level 139 136-145 mmol/L Potassium Level 4.3 3.5-5.1 mmol/L Chloride Level 111 101-111 mmol/L Carbon Dioxide Level 19 L 21-32 mmol/L Blood Urea Nitrogen 10 7-18 mg/dL Creatinine 0.8 0.5-1.0 mg/dL Glomerular Filtration Rate Calc 86 >90 mL/min Random Glucose 93 70-105 mg/dL Total Calcium 7.5 L 8.5-10.1 mg/dL Magnesium Level 1.70 L 1.80-2.40 mg/dL Total Bilirubin 0.5 # 0.2-1.0 mg/dL Direct Bilirubin 0.2 0.0-0.3 mg/dL Aspartate Amino Transf (AST/SGOT) 33 10-37 U/L Alanine Aminotransferase (ALT/SGPT) 20 12-78 U/L Alkaline Phosphatase 78 50-136 U/L B-Type Natriuretic Peptide 56 0-100 pg/mL Total Protein 5.7 L 6.0-8.3 g/dL Albumin 2.0 L 3.5-5.0 g/dL Troponin I High Sensitivity 9 4-50 ng/L Lipase 32 16-77 U/L Lactic Acid Level 2.0 0.8-2.5 mmol/L Current Medications Medications (Trade) Dose Ordered Sig/Gregory Route PRN Reason Start Time Stop Time Status Last Admin Dose Admin Ceftriaxone Sodium 1 gm/ Sodium Chloride 50 ml @ 100 mls/hr Q24H IV 10/08/25 09:00 10/07/25 23:39 DC Ceftriaxone Sodium (ROCEphine 1G INJ) 1 gm Q24H IVPB 10/07/25 23:45 10/17/25 23:44 Dextrose (D50w) 50 ml AD PRN IV HYPOGLYCEMIA PROTOCOL 10/07/25 23:30 11/06/25 23:29 Dicyclomine HCl (Bentyl 20mg Tab) 10 mg Q6H6 PO 10/08/25 12:00 11/07/25 11:59 10/08/25 13:06 10 MG Folic Acid (FOLic ACID 1 MG TABLET) 1 mg DAILY PO 10/09/25 09:00 11/08/25 08:59 Glucagon (Glucagon 1mg Kit) 1 mg AD PRN IM HYPOGLYCEMIA PROTOCOL 10/07/25 23:30 11/06/25 23:29 Insulin Human Regular (humuLIN R 100 UNIT/ML 3ML) INSULIN SLIDING SCAL... ACHS SQ 10/08/25 07:30 11/07/25 07:29 Lactated Ringer's 1,000 ml @ 50 mls/hr Q20H IV 10/07/25 23:30 10/08/25 10:45 DC 10/08/25 01:34 50 MLS/HR Midodrine (PROAMatine 5 MG TABLET) 10 mg Q8H PO 10/08/25 11:30 11/07/25 11:29 Morphine Sulfate (morPHINE 2MG SYG) 2 mg Q4H PRN IV SEVERE PAIN (7-10) 10/07/25 23:30 10/14/25 23:29 10/08/25 13:05 2 MG Ondansetron HCl (zoFRAN 4MG INJ) 4 mg Q6H PRN IV NAUSEA/VOMITING 10/07/25 23:30 11/06/25 23:29 Pantoprazole Sodium (PROTonix 40MG INJ) 40 mg DAILY IVP 10/08/25 09:00 11/07/25 08:59 10/08/25 11:34 40 MG Pharmacy Profile Note (Lace Assessment) 1 each AD MISC 10/08/25 10:30 10/08/25 10:33 DC Quetiapine Fumarate (SEROquel 25 mg TAB) 25 mg HS PO 10/08/25 21:00 11/07/25 20:59 Sodium Bicarbonate (Sodium Bicarbonate) 1,300 mg QID PO 10/08/25 13:00 11/07/25 12:59 10/08/25 13:06 1,300 MG Vitamin B Complex (Vitamin B-12) 1,000 mcg DAILY PO 10/09/25 09:00 11/08/25 08:59 DIAGNOSTICS / RADIOLOGY: [address] [address] IMAGING REPORT Signed PATIENT: DALLAS BUCHANAN MR#: [id number] : 1970 SEX: F AGE: 55 LOCATION: [facility] ORDER 00 STATUS: [facility] REPORT#: [id number] SERVICE 99 REASON: SHORTNESS A BREATH. ORDERING PHYSICIAN: ALHAJI SHINE PROCEDURE: CXR1VW - CHEST 1VW EXAM: CR Chest, 1 View. CLINICAL HISTORY: SHORTNESS A BREATH. COMPARISON: None provided. FINDINGS: LUNGS: The lungs show no infiltrate or other acute finding. PLEURAL SPACES: No pleural effusion or pneumothorax. MEDIASTINUM: The cardiomediastinal silhouette is within normal limits. BONES: No aggressive appearing osseous lesion seen. IMPRESSION: No acute cardiopulmonary pathology is evident. /[place] DICTATED BY: STEVEN ZHAO MD DATE: 10/07/252208 ELECTRONICALLY SIGNED BY: STEVEN ZHAO MD DATE: 10/07/252208 [facility] [address] [place] [address] IMAGING REPORT Signed PATIENT: DALLAS BUCHANAN MR#: [id number] : 1970 SEX: F AGE: 55 LOCATION: [facility] ORDER 55 STATUS: [facility] REPORT#: [id number] SERVICE 53 REASON: DIFFUSE ABDOMINAL PAIN WITH NAUSEA. PATIENT HAS NEW COLOSTOMY ORDERING PHYSICIAN: ALHAJI SHINE PROCEDURE: ABDO WO - CT ABDOMEN W/O CONTRAST EXAM: CT Abdomen Without IV contrast CLINICAL HISTORY: Patient presents with diffuse abdominal pain and nausea. TECHNIQUE: Axial computed tomography images of the abdomen without intravenous contrast. CONTRAST: No IV contrast. COMPARISON: CT abdomen and pelvis 10/01/2025 10:53 PM FINDINGS: LUNG BASES: Moderate bilateral pleural effusions are present. LIVER: Nodular hepatic margins suggest cirrhotic changes, stable. GALLBLADDER AND BILE DUCTS: Calcified gallbladder wall without radiodense calculus or cholecystitis, stable. No biliary ductal dilatation is evident. PANCREAS: Unremarkable. SPLEEN: Enlarged measures 13cm. ADRENAL GLANDS: Unremarkable. KIDNEYS AND URETERS: Unremarkable. No hydronephrosis or nephrolithiasis. STOMACH AND BOWEL: Mildly distended small bowel loops without transition point. Scattered colonic diverticulosis. Small hiatus hernia, stable. Unremarkable appearance of the stomach otherwise. No evidence of bowel obstruction. No evidence suggesting enteritis or colitis. PERITONEUM: Markedly progressed gross ascites and mesenteric fat stranding. Generalized anasarca is present. Removal of pigtail catheter from subsplenic collection with resultant mild peritoneal thickening. No free air. LYMPH NODES: No lymphadenopathy is evident. VASCULATURE: No evidence of abdominal aortic aneurysm. BONES: No acute osseous abnormality. IMPRESSION: Markedly progressed gross ascites and mesenteric fat stranding with generalized anasarca, concerning for worsening fluid overload. New moderate bilateral pleural effusions. Nodular hepatic margins consistent with cirrhotic changes, stable. Mildly distended small bowel loops without transition point, likely ileus/enteritis, new from prior. Calcified gallbladder wall, stable. Post ileostomy status Stable scattered colonic diverticulosis. Small hiatus hernia, stable. Removal of pigtail catheter from subsplenic collection with resultant mild peritoneal thickening. No acute intra abdominal abnormality otherwise. /[place] DICTATED BY: CELIA RITTER MD DATE: 10/07/252204 ELECTRONICALLY SIGNED BY: CELIA RITTER MD DATE: 10/07/252204 ASSESSMENT: Acute abdominal pain POA Severe volume overload with worsening ascites per CT POA Mesenteric fat stranding likely inflammatory/ edematous process per CT POA Ileus post abdominal surgery POA Ileostomy status POA Protein calorie malnutrition POA Moderate bilateral pleural effusion CP POA Chronic anemia POA Diabetes POA PLAN: Acute abdominal pain -Patient currently NPO. We will advance her diet as tolerated. -Patient is on Rocephin for empiric coverage. -Pregabalin has been added to the patients pain regimen. -Procal and CRP have been ordered. Severe volume overload with worsening ascites -Lasix 40 mg IV daily -25 mg Aldactone daily -Interventional radiology has been consulted for possible paracentesis. -Bladder scan ordered due to patients complaint of urinating infrequently. Ileus post abdominal surgery -General surgery has been consulted. We will continue to follow their recommendations. -Gastroenterology has been consulted. We will continue to follow their recommendations. Psychiatry has been consulted to evaluate for depression. We will follow their recommendations. Protonix daily for GI prophylaxis SCD's for DVT prophylaxis Home medications have been reconciled. This plan has been discussed and approved by my attending. LISET DOUGLAS MD Oct 08, 2025 13:40
--- NOTE | 2025-10-08 13:46 | CONS ---
CONSULT NOTE: Reason for consult: evaluate for depression Reason for medical admission: This is a 55 year old female Diabetes, liver cirrhosis, esophageal varices, DVT, perisplenic abscess, acute gastritis, peritonitis with ESBL and E coli infection septic shock with a past surgical history of cholecystectomy, robotic sigmoid resection with takedown of colov esical fistula with a recent perforation of colonic anastomosis , diagnostic laparoscopy ,drain placement,abdominal wash out and creation of diverting loop ileostomy who was brought by EMS to the ED for complaints of abdominal pain and abdominal distention.Patient reports she was discharged yesterday from this facility even if she was not feeling well because she continues to have abdominal pain and distention she said and daughter was at bedside saying patient weighs 124 kg on admission and she was discharged home weighing 140 kgs and has been telling riri CERVANTES that patient is retaining fluids but still discharged her anyway she said.Patient states while at home she was unable to keep anything down because every time she eats her abdomen hurts and she became nauseated. Seen and examined patient in the ER awake,alert and coherent,patient appears uncomfortable and crying.Patient has diffuse abdominal tenderness on palpation.Patient has an Ileostomy which is patent and normally functioning.Patient denies fever,chills,vomiting,chest pain,palpitation and cough.Patient states she has occasional shortness of breath.Latest V/S latest vi ramandeep signs temperature 99, heart rate 98, blood pressure 106/61 saturation 100% on room air. Labs: WBC 5.6, neutrophils 72, hemoglobin 9, hematocrit 29 and platelet count 137. Lactic acid 2.0, glucose 129, total calcium 7.7 albumin 2.2 nine the rest of the chemistries normal. Chest x-ray result revealed no acute cardiopulmonary pathology is evident. CT abdomen without contrast result revealed markedly progressed gross ascites and mesenteric fat stranding with generalized anasarca, concerning for worsening fluid overload. Moderate bilateral pleural effusions. Nodular hepatic margins consistent with cirrhotic changes stable. Distended small bowel loops without transition point likely ileus/enteritis new from prior. Calcified gallbladder wall stable. Post Ileostomy status. Stable scattered colonic diverticulosis. Small hiatus hernia stable removal of pigtail catheter from sub splenic collection with resultant mild peritoneal thickening. No acute intra-abdominal abnormality otherwise. While in the ER patient received morphine 2 mg IV, Zofran 4 mg IV Rocephin 2 g IV NS 500 IV bolus and Reglan 10 mg IV.Patient is pending for NGT insertion.Er called and recommended to admit the patient. Previous psych consult in September 12, 2025: Patient states she is feeling "good" today. Patient came to the hospital because she was throwing up blood. Patient reports she has been having a lot of anxiety at night and she has been very restless. She has an ileostomy and the bag has been ripping, she has been bl eeding, she has been in the hospital for too long and she doesn't fully understand what is going on. She denied any issues with insomnia or anxiety prior to coming to the hospital. She has family hx of psychiatric issues, specifically dementia. She denied any hx of depression, psychosis, schizophrenia or bipolar disorder. She has never taken any psychiatric medications or been admitted to a psychiatric hospital. She states the medications that were started have been helpful but she still didn't sleep well last night. She reports the medication helped with the anxiety. Patient reports that she did sleep a little bit but she was still restless. She denied any depression or suicidal thoughts. She says the doctors do come and answer her questions but she doesn't understand why she is here still and when she will be discharged. She still has some procedure to complete prior to DC. Patient says she feels like she came in for one thing and then all of these other issues started piling up. She is eating well. Patient reports she is not having much anxiety during the day. The anxiety and restlessness comes in the evenings. She says when her daughter is here she feels calmer and she feels at ease. Patient did not have any other symptoms to report or questions about her mental health. She likes the current medications and she is agreeable to increase the Remeron and Seroquel. No hx of inpatient psychiatric admissions or suicide attempts. No current outpatient mental health services. No hx of psychotropic medication trials. Current psychiatric medications: Seroquel, Remeron CC: "I was very bloated" HPI: Patient states she is feeling "better" today. She does report issues with sadness and depression due to being in and out of the hospital so much. She says if she was at home she would not be sad or depressed. She feels a lot better when she is home. Family is reporting that the Cymbalta was stopped by her PCP but they aren't really sure why. Family thinks it might have been stopped due to daytime drowsiness. She has been feeling more sad and having more crying spells. She does have anxiety and times where she feels like she cannot calm herself down. She denied SI or nihilstic thoughts. She denied issues with anger or wanting to hurt others. She reports prolonged depressed mood, crying spells, low energy, low motivation. Sleeping during the day and poor appetite due to GI issues. She denied issues with AVH and paranoia. She says that sometimes when she is half asleep she can hear herself talk and she gets scared. She does not drink alcohol or use drugs. She does not smoke or use tobacco. She has had several inpatient admissions over the past month or so. She is agreeable to restart the Cymbalta and keep the Seroquel. We will not restart the Remeron due to concerns about polypharmacy and sedation. Family was in the room and they expressed understanding and agreement with the plan. Questions were answered. Previous psychiatric medications: Cymbalta, Remeron, Seroquel Vital Signs Date Time Temp Pulse Resp B/P (MAP) Pulse Ox O2 Delivery O2 Flow Rate FiO2 10/08/25 08:00 98.2 86 18 126/60 100 Room Air 10/08/25 02:15 0 21 Current Medications Medications Dose Ordered Sig/Gregory Start Time Stop Time Status Last Admin Ondansetron HCl 4 mg Q6H PRN 10/07/25 23:30 11/06/25 23:29 Morphine Sulfate 2 mg Q4H PRN 10/07/25 23:30 10/14/25 23:29 10/08/25 13:05 Pantoprazole Sodium 40 mg DAILY 10/08/25 09:00 11/07/25 08:59 10/08/25 11:34 Insulin Human Regular INSULIN SLIDING SCAL... ACHS 10/08/25 07:30 11/07/25 07:29 Dextrose 50 ml AD PRN 10/07/25 23:30 11/06/25 23:29 Glucagon 1 mg AD PRN 10/07/25 23:30 11/06/25 23:29 Ceftriaxone Sodium 1 gm Q24H 10/07/25 23:45 10/17/25 23:44 Vitamin B Complex 1,000 mcg DAILY 10/09/25 09:00 11/08/25 08:59 Dicyclomine HCl 10 mg Q6H6 10/08/25 12:00 11/07/25 11:59 10/08/25 13:06 Folic Acid 1 mg DAILY 10/09/25 09:00 11/08/25 08:59 Quetiapine Fumarate 25 mg HS 10/08/25 21:00 11/07/25 20:59 Sodium Bicarbonate 1,300 mg QID 10/08/25 13:00 11/07/25 12:59 10/08/25 13:06 Midodrine 10 mg Q8H 10/08/25 11:30 11/07/25 11:29 Pregabalin 25 mg DAILYDINNER 10/08/25 17:00 11/07/25 16:59 Furosemide 40 mg DAILY 10/09/25 09:00 11/08/25 08:59 Spironolactone 25 mg DAILY 10/09/25 09:00 11/08/25 08:59 Laboratory Tests Test 10/07/25 19:10 10/07/25 19:30 10/08/25 04:33 10/08/25 05:34 Lactic Acid Level 2.0 mmol/L (0.8-2.5) White Blood Count 5.6 K/uL (4.8-10.8) 5.5 K/uL (4.8-10.8) Red Blood Count 2.93 MIL/uL (4.00-5.50) L 2.79 MIL/uL (4.00-5.50) L Hemoglobin 9.3 g/dL (12.0-16.0) L 8.9 g/dL (12.0-16.0) L Hematocrit 29.9 % (36-48) L 28.3 % (36-48) L Mean Corpuscular Volume 102.0 fL (79-99) H 101.4 fL (79-99) H Mean Corpuscular Hemoglobin 31.7 pg (27.0-33.0) 31.9 pg (27.0-33.0) Mean Corpuscular Hemoglobin Concent 31.1 g/dL (32.0-36.0) L 31.4 g/dL (32.0-36.0) L Red Cell Distribution Width 19.3 % (11.0-15.5) H 19.2 % (11.0-15.5) H Platelet Count 137 K/uL (130-400) 136 K/uL (130-400) Mean Platelet Volume 10.2 fL (7.5-10.5) 10.1 fL (7.5-10.5) Immature Granulocyte % (Auto) 0.4 % (0-1) 0.7 % (0-1) Neutrophils (%) (Auto) 72.1 % (40.0-77.0) 69.7 % (40.0-77.0) Lymphocytes (%) (Auto) 14.7 % (21.0-51.0) L 17.1 % (21.0-51.0) L Monocytes (%) (Auto) 9.4 % (3.0-13.0) 8.7 % (3.0-13.0) Eosinophils (%) (Auto) 3.0 % (0.0-8.0) 3.1 % (0.0-8.0) Basophils (%) (Auto) 0.4 % (0.0-5.0) 0.7 % (0.0-5.0) Neutrophils # (Auto) 4.1 K/uL (1.8-7.7) 3.8 K/uL (1.8-7.7) Lymphocytes # (Auto) 0.8 K/uL (1.0-4.8) L 0.9 K/uL (1.0-4.8) L Monocytes # (Auto) 0.5 K/uL (0.1-1.0) 0.5 K/uL (0.1-1.0) Eosinophils # (Auto) 0.17 K/uL (0.00-0.70) 0.17 K/uL (0.00-0.70) Basophils # (Auto) 0.02 K/uL (0.00-0.20) 0.04 K/uL (0.00-0.20) Absolute Immature Granulocyte (auto 0.02 K/uL (0-1) 0.04 K/uL (0-1) Nucleated Red Blood Cells 0.0 % (0.0-0.19) 0.0 % (0.0-0.19) Sodium Level 139 mmol/L (136-145) 139 mmol/L (136-145) Potassium Level 4.0 mmol/L (3.5-5.1) 4.3 mmol/L (3.5-5.1) Chloride Level 110 mmol/L (101-111) 111 mmol/L (101-111) Carbon Dioxide Level 21 mmol/L (21-32) 19 mmol/L (21-32) L Blood Urea Nitrogen 9 mg/dL (7-18) 10 mg/dL (7-18) Creatinine 0.8 mg/dL (0.5-1.0) 0.8 mg/dL (0.5-1.0) Glomerular Filtration Rate Calc 86 mL/min (>90) 86 mL/min (>90) Random Glucose 129 mg/dL (70-105) H 93 mg/dL (70-105) Total Calcium 7.7 mg/dL (8.5-10.1) L 7.5 mg/dL (8.5-10.1) L Total Bilirubin 0.4 mg/dL (0.2-1.0) 0.5 mg/dL (0.2-1.0) # Aspartate Amino Transf (AST/SGOT) 33 U/L (10-37) 33 U/L (10-37) Alanine Aminotransferase (ALT/SGPT) 17 U/L (12-78) 20 U/L (12-78) Alkaline Phosphatase 84 U/L (50-136) 78 U/L (50-136) Troponin I High Sensitivity 9 ng/L (4-50) Total Protein 6.0 g/dL (6.0-8.3) 5.7 g/dL (6.0-8.3) L Albumin 2.2 g/dL (3.5-5.0) L 2.0 g/dL (3.5-5.0) L Lipase 32 U/L (16-77) Magnesium Level 1.70 mg/dL (1.80-2.40) L Direct Bilirubin 0.2 mg/dL (0.0-0.3) B-Type Natriuretic Peptide 56 pg/mL (0-100) Whole Blood Glucose 91 MG/DL (70-110) MSE: Patient is a 55 yo female. She is awake and alert. She is oriented to person, place and situation. Speech is fluent German. Eye contact is good. No AIMS or psychomotor disturbances. Gait is not evaluated. Mood is "sad" and affect is a bit blunted. Thought process is linear and goal directed. Thought content is negative for SI, HI, AVH. Memory and cognition are grossly intact. Insight and judgment are fair. Assessment: MDD, moderate recurrent Anxiety Insomnia Recommendations: -Patient is not currently suicidal, homicidal or psychotic and she does not require inpatient psychiatric admission at this time. -Recommend restarting Cymbalta 20 mg BID, may change to all HS dosing if this medication makes her drowsy but I do not believe this was the cause of her daytimes sleepiness. -Continue Seroquel 25 mg QHS for mood, sleep and restlessness/agitatoin -Patient and family do not want to restart Remeron due to too many medications and possible SE -Please make referrals to outpatient psychiatry after DC. -Please make sure she has RX for her psychotropic medications at time of DC. -Psychiatry signing off. *20 mins was spent [id number] with patient and family and 25 mins was spent on chart review and documentation MARYLU MENENDEZ DO Oct 08, 2025 13:46
--- NOTE | 2025-10-08 19:28 | CONS ---
GASTROENTEROLOGY CONSULTATION NOTE Date of Consultation: Oct 08, 2025 Time of Consultation: 19:28 History of Present Illness: this is a 55-year-old female who is known to services with past medical history of diabetes, cirrhosis, esophageal varices, DVT, gastritis, peritonitis with robotic sigmoid resection with takedown of colovesical fistula and ileostomy who presented due to abdominal pain and distention. She has been having frequent readmissions. She was recently admitted with concern for GI bleed and ostomy however no stigmata of bleeding from esophageal varices. Review of Systems: CONSTITUTIONAL: No malaise or change in sensation of wellbeing. ENMT: No rhinorrhea, otorrhea, sinus pain, ear ache. CARDIOVASCULAR: No angina, palpitations, orthopnea or paroxysmal dyspnea. RESPIRATORY: No SOB. GASTROINTESTINAL: No abdominal pain, nausea, vomiting, diarrhea, hematemesis, melena or change in the patient's habitual bowel movements consistency/number. GENITOURINARY: No dysuria, hematuria or change in bladder continence. MUSCULOSKELETAL: No new muscle pain or decrease in muscular strength. No new joint swelling, redness or tenderness. SKIN: No new rash. Past Medical History: [ ] Past Surgical History: [ ] Past Social History: [ ] Family History: [ ] Coded Allergies: aspirin (Unverified Allergy, Unknown, 07/02/25) bismuth subsalicylate (Unverified Allergy, Unknown, 07/02/25) pork derived (porcine) (Unverified Allergy, Unknown, 07/02/25) Uncoded Allergies: BISMUTH (Allergy, Unknown, 07/02/25) Physical Exam: GEN: Awake, alert, oriented in person, time and place, and in no acute distress. HEENT: No sinus tenderness. Tympanic membranes were not examined. No rhinorrhea. Oral pharyngeal mucosa is pink, moist and within normal limits. Neck is supple with no cervical lymphadenopathy, thyromegaly or JVD. CHEST: Inspection, palpation and percussion of the chest were unremarkable. Lung auscultation revealed normal breath sounds bilaterally. CARDIAC: PMI is within normal limits. Heart sounds are regular. Normal S1, S2. No gallop or murmur. ABD: Soft, non-tender and not distended. No peritoneal signs on palpation. No organomegaly. Normal bowel sounds. EXT: No cyanosis or clubbing. No edema. SKIN: Intact. No rashes. JOINTS: No evidence of synovitis or acute arthritis. NEURO: Alert and oriented to name, place and person. Cranial nerve examination is unremarkable. No focal motor deficits. Normal speech. Gait is normal. Strength is normal. Vital Sign (Last 24 Hours) 10/08/25 10/08/25 02:15 16:00 Temp 97.9 Pulse 84 Resp 18 B/P (MAP) 141/62 Pulse Ox 100 O2 Delivery Room Air O2 Flow Rate 0 FiO2 21 Intake & Output (last 24hrs) 10/07/25 10/07/25 10/08/25 15:00 23:00 07:00 Output Total 50 ml Balance -50 ml Laboratory: [ ] Laboratory: Test 10/08/25 09:33 10/08/25 05:34 10/08/25 04:33 10/07/25 19:30 Range/Units Phosphorus Level 1.6 L 2.5-4.9 mg/dL Whole Blood Glucose 91 70-110 MG/DL White Blood Count 5.5 4.8-10.8 K/uL Red Blood Count 2.79 L 4.00-5.50 MIL/uL Hemoglobin 8.9 L 12.0-16.0 g/dL Hematocrit 28.3 L 36-48 % Mean Corpuscular Volume 101.4 H 79-99 fL Mean Corpuscular Hemoglobin 31.9 27.0-33.0 pg Mean Corpuscular Hemoglobin Concent 31.4 L 32.0-36.0 g/dL Red Cell Distribution Width 19.2 H 11.0-15.5 % Platelet Count 136 130-400 K/uL Mean Platelet Volume 10.1 7.5-10.5 fL Immature Granulocyte % (Auto) 0.7 0-1 % Neutrophils (%) (Auto) 69.7 40.0-77.0 % Lymphocytes (%) (Auto) 17.1 L 21.0-51.0 % Monocytes (%) (Auto) 8.7 3.0-13.0 % Eosinophils (%) (Auto) 3.1 0.0-8.0 % Basophils (%) (Auto) 0.7 0.0-5.0 % Neutrophils # (Auto) 3.8 1.8-7.7 K/uL Lymphocytes # (Auto) 0.9 L 1.0-4.8 K/uL Monocytes # (Auto) 0.5 0.1-1.0 K/uL Eosinophils # (Auto) 0.17 0.00-0.70 K/uL Basophils # (Auto) 0.04 0.00-0.20 K/uL Absolute Immature Granulocyte (auto 0.04 0-1 K/uL Nucleated Red Blood Cells 0.0 0.0-0.19 % Sodium Level 139 136-145 mmol/L Potassium Level 4.3 3.5-5.1 mmol/L Chloride Level 111 101-111 mmol/L Carbon Dioxide Level 19 L 21-32 mmol/L Blood Urea Nitrogen 10 7-18 mg/dL Creatinine 0.8 0.5-1.0 mg/dL Glomerular Filtration Rate Calc 86 >90 mL/min Random Glucose 93 70-105 mg/dL Total Calcium 7.5 L 8.5-10.1 mg/dL Magnesium Level 1.70 L 1.80-2.40 mg/dL Total Bilirubin 0.5 # 0.2-1.0 mg/dL Direct Bilirubin 0.2 0.0-0.3 mg/dL Aspartate Amino Transf (AST/SGOT) 33 10-37 U/L Alanine Aminotransferase (ALT/SGPT) 20 12-78 U/L Alkaline Phosphatase 78 50-136 U/L B-Type Natriuretic Peptide 56 0-100 pg/mL Total Protein 5.7 L 6.0-8.3 g/dL Albumin 2.0 L 3.5-5.0 g/dL Troponin I High Sensitivity 9 4-50 ng/L Lipase 32 16-77 U/L Test 10/07/25 19:10 Range/Units Lactic Acid Level 2.0 0.8-2.5 mmol/L Current Medications Medications (Trade) Dose Ordered Sig/Gregory Route PRN Reason Start Time Stop Time Status Last Admin Dose Admin Ceftriaxone Sodium 1 gm/ Sodium Chloride 50 ml @ 100 mls/hr Q24H IV 10/08/25 09:00 10/07/25 23:39 DC Ceftriaxone Sodium (ROCEphine 1G INJ) 1 gm Q24H IVPB 10/07/25 23:45 10/17/25 23:44 Dextrose (D50w) 50 ml AD PRN IV HYPOGLYCEMIA PROTOCOL 10/07/25 23:30 11/06/25 23:29 Dicyclomine HCl (Bentyl 20mg Tab) 10 mg Q6H6 PO 10/08/25 12:00 11/07/25 11:59 10/08/25 18:01 10 MG Duloxetine HCl (CymbALTA 30 mg CAP) 20 mg BID PO 10/08/25 21:00 11/07/25 20:59 Folic Acid (FOLic ACID 1 MG TABLET) 1 mg DAILY PO 10/09/25 09:00 11/08/25 08:59 Furosemide (LASix 40MG VIAL) 40 mg DAILY IV 10/09/25 09:00 11/08/25 08:59 Glucagon (Glucagon 1mg Kit) 1 mg AD PRN IM HYPOGLYCEMIA PROTOCOL 10/07/25 23:30 11/06/25 23:29 Insulin Human Regular (humuLIN R 100 UNIT/ML 3ML) INSULIN SLIDING SCAL... ACHS SQ 10/08/25 07:30 11/07/25 07:29 Lactated Ringer's 1,000 ml @ 50 mls/hr Q20H IV 10/07/25 23:30 10/08/25 10:45 DC 10/08/25 01:34 50 MLS/HR Midodrine (PROAMatine 5 MG TABLET) 10 mg Q8H PO 10/08/25 11:30 11/07/25 11:29 Morphine Sulfate (morPHINE 2MG SYG) 2 mg Q4H PRN IV SEVERE PAIN (7-10) 10/07/25 23:30 10/14/25 23:29 10/08/25 13:05 2 MG Ondansetron HCl (zoFRAN 4MG INJ) 4 mg Q6H PRN IV NAUSEA/VOMITING 10/07/25 23:30 11/06/25 23:29 Pantoprazole Sodium (PROTonix 40MG INJ) 40 mg DAILY IVP 10/08/25 09:00 11/07/25 08:59 10/08/25 11:34 40 MG Pharmacy Profile Note (Lace Assessment) 1 each AD MISC 10/08/25 10:30 10/08/25 10:33 DC Pregabalin (LYRica 25MG) 25 mg DAILYDINNER PO 10/08/25 17:00 11/07/25 16:59 10/08/25 18:01 25 MG Quetiapine Fumarate (SEROquel 25 mg TAB) 25 mg HS PO 10/08/25 21:00 11/07/25 20:59 Sodium Bicarbonate (Sodium Bicarbonate) 1,300 mg QID PO 10/08/25 13:00 11/07/25 12:59 10/08/25 18:01 1,300 MG Spironolactone (Aldactone 25mg) 25 mg DAILY PO 10/09/25 09:00 11/08/25 08:59 Vitamin B Complex (Vitamin B-12) 1,000 mcg DAILY PO 10/09/25 09:00 11/08/25 08:59 Diagnostics / Radiology: [COPY/PASTE HERE IF NO REPORTS PLEASE DELETE SECTION] Assessment: Cirrhosis DM Ileostomy status Plan: No GI intervention warranted at this time Continue GI prophylaxis Advance diet as tolerated Avoid NSAIDs Antireflux measures Monitor H&H and transfuse as needed Call with questions, concerns or change in clinical status Patient to follow-up at clinic post discharge Thank you for this consult STEPHEN THAO [facility] Oct 08, 2025 19:28
[2025-10-09] VITALS (7 sets, daily range): BP systolic 111–137; BP diastolic 61–78; PULSE 70–91; RESP 16–20; TEMP 98–99.1; O2SAT 97–98
--- NOTE | 2025-10-09 03:33 | NUR ---
MIDODRINE MIDODRINE NOT ADMINISTERED PATIENT BP 137/74.
[2025-10-09 05:34] LABS: IMMATURE GRANULOCYTE ABSOLUTE 0.02 K/uL (0-1); NUCLEATED RED BLOOD CELLS 0.0 % (0.0-0.19); PLATELET COUNT (AUTO) 116 K/uL (130-400); RED BLOOD CELL COUNT(AUTO) 2.62 MIL/uL (4.00-5.50); RED CELL DISTRIBUTION WIDTH 19.0 % (11.0-15.5); WHITE BLOOD COUNT (AUTO) 3.2 K/uL (4.8-10.8)
[2025-10-09 05:49] LABS: ASPARTATE AMINOTRANSFERASE 35.0 U/L (10-37); CREATININE 0.7 mg/dL (0.5-1.0); GLOMERULAR FILTR. RATE CALC 101.0 mL/min (>90); GLUCOSE,RANDOM 80.0 mg/dL (70-105); PHOSPHORUS 1.9 mg/dL (2.5-4.9); SODIUM SERUM 140.0 mmol/L (136-145); TOTAL PROTEIN, SERUM 5.1 g/dL (6.0-8.3); UREA NITROGEN, BLOOD 11.0 mg/dL (7-18)
[2025-10-09] MEDS: SPIRONOLACTONE 25 MG TAB PO SCH (09:54)
[2025-10-09] MEDS: CYANOCOBALAMIN (VITAMIN B-12) 1,000 MCG TABLET PO SCH (09:55)
--- NOTE | 2025-10-09 14:00 | NUR ---
MIDODRINE MIDODRINE NOT ADMINISTERED PT BP 129/62
--- NOTE | 2025-10-09 15:01 | PN ---
Known patient to our service came back because of fluid overload nausea and abdominal pain. CT scan showing severe anasarca and ascites. Patient was tolerating p.o. with the ostomy that is functioning. Pain is upper abdomen, no peritoneal signs Ostomy is pink patent and productive Labs reviewed and albumin is extremely low Assessment and plan We will order a HIDA scan to evaluate if any of her pain might be from recurrent cholecystitis. Patient with severe hypoalbuminemia. We will give one dose of albumin. She is already on the diuretics. She needs optimization of her liver Agree with plan for paracentesis on Saturday. Vitals/Labs Vital Signs Date Time Temp Pulse Resp B/P (MAP) Pulse Ox O2 Delivery O2 Flow Rate FiO2 10/09/25 08:00 98.2 72 18 129/61 98 Room Air 10/08/25 20:30 0 21 Laboratory Tests 10/09/25 05:13 Medications Current Medications Morphine Sulfate 2 mg ONCE ONCE IVP Last administered on 10/07/25 19:38; Start 10/07/25 at 19:00; Stop 10/07/25 at 19:01; Status DC Ondansetron HCl 4 mg ONCE ONCE IVP Last administered on 10/07/25 19:38; Start 10/07/25 at 19:00; Stop 10/07/25 at 19:01; Status DC Ceftriaxone Sodium 2 gm ONCE ONCE IVPB Last administered on 10/07/25at 22:55; Start 10/07/25 at 21:30; Stop 10/07/25 at 21:31; Status DC Sodium Chloride 500 ml @ 0 mls/hr ONCE ONCE IV Last administered on 10/07/25at 22:54; Start 10/07/25 at 21:30; Stop 10/07/25 at 21:31; Status DC Metoclopramide HCl 10 mg ONCE ONCE IVP Last administered on 10/07/25at 22:55; Start 10/07/25 at 22:00; Stop 10/07/25 at 22:01; Status DC Ondansetron HCl 4 mg Q6H PRN IV; Start 10/07/25 at 23:30; Stop 11/06/25 at 23:29 Morphine Sulfate 2 mg Q4H PRN IV Last administered on 10/09/25at 13:54; Start 10/07/25 at 23:30; Stop 10/14/25 at 23:29 Ceftriaxone Sodium 1 gm/ Sodium Chloride 50 ml @ 100 mls/hr Q24H IV; Start 10/08/25 at 09:00; Stop 10/07/25 at 23:39; Status DC Pantoprazole Sodium 40 mg DAILY IVP Last administered on 10/09/25at 09:54; Start 10/08/25 at 09:00; Stop 11/07/25 at 08:59 Insulin Human Regular INSULIN SLIDING SCAL... ACHS SQ; Start 10/08/25 at 07:30; Stop 11/07/25 at 07:29 Dextrose 50 ml AD PRN IV; Start 10/07/25 at 23:30; Stop 11/06/25 at 23:29 Glucagon 1 mg AD PRN IM; Start 10/07/25 at 23:30; Stop 11/06/25 at 23:29 Lactated Ringer's 1,000 ml @ 50 mls/hr Q20H IV Last administered on 10/08/25at 01:34; Start 10/07/25 at 23:30; Stop 10/08/25 at 10:45; Status DC Ceftriaxone Sodium 1 gm Q24H IVPB Last administered on 10/09/25at 00:01; Start 10/07/25 at 23:45; Stop 10/17/25 at 23:44 Pharmacy Profile Note 1 each AD MISC; Start 10/08/25 at 10:30; Stop 10/08/25 at 10:33; Status DC Vitamin B Complex 1,000 mcg DAILY PO Last administered on 10/09/25at 09:55; Start 10/09/25 at 09:00; Stop 11/08/25 at 08:59 Dicyclomine HCl 10 mg Q6H6 PO Last administered on 10/09/25at 13:55; Start 10/08/25 at 12:00; Stop 11/07/25 at 11:59 Folic Acid 1 mg DAILY PO Last administered on 10/09/25at 09:54; Start 10/09/25 at 09:00; Stop 11/08/25 at 08:59 Quetiapine Fumarate 25 mg HS PO Last administered on 10/08/25at 21:25; Start 10/08/25 at 21:00; Stop 11/07/25 at 20:59 Sodium Bicarbonate 1,300 mg QID PO Last administered on 10/09/25at 13:55; Start 10/08/25 at 13:00; Stop 11/07/25 at 12:59 Midodrine 10 mg Q8H PO Last administered on 10/08/25at 21:25; Start 10/08/25 at 11:30; Stop 11/07/25 at 11:29 Pregabalin 25 mg DAILYDINNER PO Last administered on 10/08/25at 18:01; Start 10/08/25 at 17:00; Stop 11/07/25 at 16:59 Furosemide 40 mg DAILY IV Last administered on 10/09/25at 09:54; Start 10/09/25 at 09:00; Stop 11/08/25 at 08:59 Spironolactone 25 mg DAILY PO Last administered on 10/09/25at 09:54; Start 10/09/25 at 09:00; Stop 11/08/25 at 08:59 Duloxetine HCl 20 mg BID PO; Start 10/08/25 at 21:00; Stop 10/08/25 at 21:25; Status DC Duloxetine HCl 30 mg BID PO Last administered on 10/09/25at 09:55; Start 10/08/25 at 22:00; Stop 11/07/25 at 21:59 SUSAN JHAVERI MD Oct 09, 2025 15:01
--- NOTE | 2025-10-09 15:15 | NUR ---
MORPHINE MORPHINE PRN REMOVED FROM [facility], IV INFILTRATED AND NO LONGER GOOD FOR USE. CHARGE NURSE NOTIFIED AND WASTED MORPHINE WITH ME.
--- NOTE | 2025-10-09 16:54 | PN ---
[facility] PROGRESS NOTE Date of Service: Oct 09, 2025 Time of Service: 16:33 SUBJECTIVE: This is a 55 year old female Diabetes, liver cirrhosis, esophageal varices, DVT, perisplenic abscess, acute gastritis, peritonitis with ESBL and E coli infection septic shock with a past surgical history of cholecystectomy, robotic sigmoid resection with takedown of colovesical fistula with a recent perforation of colonic anastomosis , diagnostic laparoscopy ,drain placement,abdominal wash out and creation of diverting loop ileostomy who was brought by EMS to the ED for complaints of abdominal pain and abdominal distention.Patient reports she was discharged yesterday from this facility even if she was not feeling well because she continues to have abdominal pain and distention she said and daughter was at bedside saying patient weighs 124 kg on admission and she was discharged home weighing 140 kgs and has been telling riri CERVANTES that patient is retaining fluids but still discharged her anyway she said.Patient states while at home she was unable to keep anything down because every time she eats her abdomen hurts and she became nauseated. Seen and examined patient in the ER awake,alert and coherent,patient appears uncomfortable and crying.Patient has diffuse abdominal tenderness on palpation.Patient has an Ileostomy which is patent and normally functioning.Patient denies fever,chills,vomiting,chest pain,palpitation and cough.Patient states she has occasional shortness of breath.Latest V/S latest vital signs temperature 99, heart rate 98, blood pressure 106/61 saturation 100% on room air. Labs: WBC 5.6, neutrophils 72, hemoglobin 9, hematocrit 29 and platelet count 137. Lactic acid 2.0, glucose 129, total calcium 7.7 albumin 2.2 nine the rest of the chemistries normal. Chest x-ray result revealed no acute cardiopulmonary pathology is evident. CT abdomen without contrast result revealed markedly progressed gross ascites and mesenteric fat stranding with generalized anasarca, concerning for worsening fluid overload. Moderate bilateral pleural effusions. Nodular hepatic margins consistent with cirrhotic changes stable. Distended small bowel loops without transition point likely ileus/enteritis new from prior. Calcified gallbladder wall stable. Post Ileostomy status. Stable scattered colonic diverticulosis. Small hiatus hernia stable removal of pigtail catheter from sub splenic collection with resultant mild peritoneal thickening. No acute intra-abdominal abnormality otherwise. While in the ER patient received morphine 2 mg IV, Zofran 4 mg IV Rocephin 2 g IV NS 500 IV bolus and Reglan 10 mg IV.Patient is pending for NGT insertion.Er called and recommended to admit the patient. 10/08/2025: Patient was seen and examined this morning at bedside. The patient is accompanied by her daughter. The patient is on NG tube, which has very minimal output. The patient appears uncomfortable with the NG tube, and complains that it is bothering her and causing her pain. The patients daughter states the patient is not regularly using the restroom to urinate. The patient reports she believes she is retaining urine. We will order a bladder scan and follow up with the results. The patients abdomen appears distended upon physical examination. Patient reports tenderness bilaterally in the flank regions. Bowel sounds were hypoactive upon auscultation. No peripheral edema is noted. Heart sounds are h eard, no murmurs appreciated. Interventional radiology has been called for possible paracentesis due to the patients ascites. The patient will be started on daily IV Lasix and Aldactone. We will continue to monitor her electrolytes daily, and correct accordingly. Pregabalin has been added to her pain regimen. The patient denies chest pain, shortness of breath, nausea, vomiting, fever, chills. 10/09/2025: She was evaluated at the bedside this morning. No overnight event. She is AAO x3. She do complain of mild abdominal discomfort on the right and left upper abdomen. She is hemodynamically stable. NG tube was taken out and started on clear liquid diet. Labs remarkable for WBC 3.2, hemoglobin 8.4, platelet 116, phosphorus 1.9, CRP 40.1, bicarbonate 2. 24 hour blood culture negative. She is on [id number] mg, furosemide 40 mg IV, duloxetine, quetiapine, pregabalin, sodium bicarbonate, midodrine, pantoprazole, Rocephin and PRN pain med. She do have a large ascites. Plan is to get ascitic tapping for both therapeutic and diagnostic. Surgery recommended to get HIDA scan for the possible recurrent acute cholecystitis. Psychiatry recommended to restart her on Cymbalta and Seroquel. For her hypo phosphatase Kaity, we have started her on Neutra-Phos times a day and give 1 dose of IV K-Phos15 millimole. GI on the board. Rest of the plan as discussed below. REVIEW OF SYSTEMS CONSTITUTIONAL: Denies fevers, chills, or night sweats. No unintentional weight loss reported. NEUROLOGICAL: Denies headache, amaurosis fugax, motor weakness, sensory deficit, vertigo/spinning sensation, gait abnormalities, or tremors. ENT: No hearing loss, otalgia, otorrhea, rhinitis, rhinorrhea, hoarseness, or sore throat. CARDIOVASCULAR: Denies any exertional angina, dyspnea on exertion, orthopnea, paroxysmal nocturnal dyspnea, palpitations, life-threatening arrhythmias, claudication. PULMONARY: Denies any shortness of breath, cough, phlegm/sputum, hemoptysis, pleuritic chest pain. SLEEP: Denies morning headaches, daytime somnolence or napping. Denies difficulty falling asleep, staying asleep, waking from sleep. Denies knowledge of snoring. GASTROINTESTINAL: Complains of abdominal distention, and abdominal pain. Denies any type of dysphagia to either liquids or solids. Denies vomiting, pyrosis, early satiety, diarrhea, constipation, or changes in stool consistency or caliber. Denies coffee-ground emesis, hematemesis, hematochezia, or melanotic stools. GENITOURINARY: Denies frequency, urgency, nocturia, hematuria or incontinence (Storage/Irritative symptoms.) Low urinary stream, straining to void, urinary intermittency or hesitancy, splitting of the voiding stream, terminal dribbling. ENDOCRINOLOGIC: Denies polyuria, polydipsia, polyphagia or heat/cold intolerances. HEMATOLOGIC: Denies thrombophilia/previous clots, or coagulopathy/bleeding disorders. ONCOLOGIC: Denies personal history of malignancy. DERMATOLOGIC: Denies rashes or pruritus. PSYCHIATRIC: Denies any suicidal or homicidal ideation. Denies hallucinations. PHYSICAL EXAM GENERAL APPEARANCE: The patient is awake, alert, and oriented, in no acute cardiopulmonary distress. NEUROLOGICAL: Cranial nerves II-XII grossly intact. Motor is 5/5 in bilateral upper and lower extremities proximal to distal. No sensory deficits. HEENT: Face is symmetric. Pupils are equal and reactive. Extraocular movements are intact. NECK: Supple. No JVD. No thyromegaly. No submental, submandibular, pre- /postauricular, occipital or supraclavicular lymphadenopathy. CHEST: Normal chest expansion. No Telemetry. LUNGS: Absence of any rales, rhonchi or any wheezing. CARDIOVASCULAR: Regular. S1 and S2 normal. No appreciable rubs, murmurs or gallops. ABDOMEN: Positive hypoactive bowel sounds, diffuse tenderness x4 abdominal quadrants patient+ Ileostomy Soft and distended .There is no rebound, voluntary guarding, or rigidity. : Deferred. No Dueñas. EXTREMITIES: Non-edematous and not cyanotic. No clubbing. Good capillary refill. SKIN: No skin breakdown. LABS: Laboratory: Test 10/09/25 05:13 10/09/25 05:05 10/08/25 04:33 10/07/25 19:30 Range/Units White Blood Count 3.2 L 4.8-10.8 K/uL Red Blood Count 2.62 L 4.00-5.50 MIL/uL Hemoglobin 8.4 L 12.0-16.0 g/dL Hematocrit 26.8 L 36-48 % Mean Corpuscular Volume 102.3 H 79-99 fL Mean Corpuscular Hemoglobin 32.1 27.0-33.0 pg Mean Corpuscular Hemoglobin Concent 31.3 L 32.0-36.0 g/dL Red Cell Distribution Width 19.0 H 11.0-15.5 % Platelet Count 116 L 130-400 K/uL Mean Platelet Volume 9.9 7.5-10.5 fL Immature Granulocyte % (Auto) 0.6 0-1 % Neutrophils (%) (Auto) 56.2 40.0-77.0 % Lymphocytes (%) (Auto) 27.3 21.0-51.0 % Monocytes (%) (Auto) 8.6 3.0-13.0 % Eosinophils (%) (Auto) 6.3 0.0-8.0 % Basophils (%) (Auto) 1.0 0.0-5.0 % Neutrophils # (Auto) 1.8 1.8-7.7 K/uL Lymphocytes # (Auto) 0.9 L 1.0-4.8 K/uL Monocytes # (Auto) 0.3 0.1-1.0 K/uL Eosinophils # (Auto) 0.20 0.00-0.70 K/uL Basophils # (Auto) 0.03 0.00-0.20 K/uL Absolute Immature Granulocyte (auto 0.02 0-1 K/uL Nucleated Red Blood Cells 0.0 0.0-0.19 % Sodium Level 140 136-145 mmol/L Potassium Level 4.3 3.5-5.1 mmol/L Chloride Level 112 H 101-111 mmol/L Carbon Dioxide Level 21 21-32 mmol/L Blood Urea Nitrogen 11 7-18 mg/dL Creatinine 0.7 0.5-1.0 mg/dL Glomerular Filtration Rate Calc 101 >90 mL/min Random Glucose 80 70-105 mg/dL Total Calcium 7.7 L 8.5-10.1 mg/dL Phosphorus Level 1.9 L 2.5-4.9 mg/dL Total Bilirubin 0.5 0.2-1.0 mg/dL Aspartate Amino Transf (AST/SGOT) 35 10-37 U/L Alanine Aminotransferase (ALT/SGPT) 22 12-78 U/L Alkaline Phosphatase 79 50-136 U/L C-Reactive Protein, Quantitative 40.10 H 0.5-3.0 mg/L Total Protein 5.1 L 6.0-8.3 g/dL Albumin 2.0 L 3.5-5.0 g/dL Procalcitonin < 0.05 L 0.05-0.5 ng/mL Whole Blood Glucose 75 70-110 MG/DL Magnesium Level 1.70 L 1.80-2.40 mg/dL Direct Bilirubin 0.2 0.0-0.3 mg/dL B-Type Natriuretic Peptide 56 0-100 pg/mL Troponin I High Sensitivity 9 4-50 ng/L Lipase 32 16-77 U/L Test 10/07/25 19:10 Range/Units Lactic Acid Level 2.0 0.8-2.5 mmol/L Current Medications Medications (Trade) Dose Ordered Sig/Gregory Route PRN Reason Start Time Stop Time Status Last Admin Dose Admin Ceftriaxone Sodium 1 gm/ Sodium Chloride 50 ml @ 100 mls/hr Q24H IV 10/08/25 09:00 10/07/25 23:39 DC Ceftriaxone Sodium (ROCEphine 1G INJ) 1 gm Q24H IVPB 10/07/25 23:45 10/17/25 23:44 10/09/25 00:01 1 GM Dextrose (D50w) 50 ml AD PRN IV HYPOGLYCEMIA PROTOCOL 10/07/25 23:30 11/06/25 23:29 Dicyclomine HCl (Bentyl 20mg Tab) 10 mg Q6H6 PO 10/08/25 12:00 11/07/25 11:59 10/09/25 13:55 10 MG Duloxetine HCl (CymbALTA 30 mg CAP) 20 mg BID PO 10/08/25 21:00 10/08/25 21:25 DC Duloxetine HCl (CymbALTA 30 mg CAP) 30 mg BID PO 10/08/25 22:00 11/07/25 21:59 10/09/25 09:55 30 MG Folic Acid (FOLic ACID 1 MG TABLET) 1 mg DAILY PO 10/09/25 09:00 11/08/25 08:59 10/09/25 09:54 1 MG Furosemide (LASix 40MG VIAL) 40 mg DAILY IV 10/09/25 09:00 11/08/25 08:59 10/09/25 09:54 40 MG Glucagon (Glucagon 1mg Kit) 1 mg AD PRN IM HYPOGLYCEMIA PROTOCOL 10/07/25 23:30 11/06/25 23:29 Insulin Human Regular (humuLIN R 100 UNIT/ML 3ML) INSULIN SLIDING SCAL... ACHS SQ 10/08/25 07:30 11/07/25 07:29 Lactated Ringer's 1,000 ml @ 50 mls/hr Q20H IV 10/07/25 23:30 10/08/25 10:45 DC 10/08/25 01:34 50 MLS/HR Midodrine (PROAMatine 5 MG TABLET) 10 mg Q8H PO 10/08/25 11:30 11/07/25 11:29 10/08/25 21:25 10 MG Morphine Sulfate (morPHINE 2MG SYG) 2 mg Q4H PRN IV SEVERE PAIN (7-10) 10/07/25 23:30 10/14/25 23:29 10/09/25 13:54 2 MG Ondansetron HCl (zoFRAN 4MG INJ) 4 mg Q6H PRN IV NAUSEA/VOMITING 10/07/25 23:30 11/06/25 23:29 Pantoprazole Sodium (PROTonix 40MG INJ) 40 mg DAILY IVP 10/08/25 09:00 11/07/25 08:59 10/09/25 09:54 40 MG Pharmacy Profile Note (Lace Assessment) 1 each AD MISC 10/08/25 10:30 10/08/25 10:33 DC Potassium Phos/ Sodium Phos (PHOS-NaK PACKET 1 EACH) 1 packet TID PO 10/09/25 21:00 11/08/25 20:59 UNV Pregabalin (LYRica 25MG) 25 mg DAILYDINNER PO 10/08/25 17:00 11/07/25 16:59 10/08/25 18:01 25 MG Quetiapine Fumarate (SEROquel 25 mg TAB) 25 mg HS PO 10/08/25 21:00 11/07/25 20:59 10/08/25 21:25 25 MG Sodium Bicarbonate (Sodium Bicarbonate) 1,300 mg QID PO 10/08/25 13:00 11/07/25 12:59 10/09/25 13:55 1,300 MG Spironolactone (Aldactone 25mg) 25 mg DAILY PO 10/09/25 09:00 11/08/25 08:59 10/09/25 09:54 25 MG Vitamin B Complex (Vitamin B-12) 1,000 mcg DAILY PO 10/09/25 09:00 11/08/25 08:59 10/09/25 09:55 1,000 MCG DIAGNOSTICS / RADIOLOGY: [ ] ASSESSMENT: Acute abdominal pain POA Severe volume overload with worsening ascites per CT POA Mesenteric fat stranding likely inflammatory/ edematous process per CT POA Ileus post abdominal surgery POA Ileostomy status POA Protein calorie malnutrition POA Moderate bilateral pleural effusion CP POA Chronic anemia POA Diabetes POA PLAN: Acute abdominal pain -patient currently on clear liquid diet. We will advance her diet as she tolerated. -procalcitonin less than 0.05, CRP 40.10. -Patient is on Rocephin for empiric coverage. -Pregabalin has been added to the patients pain regimen. -surgery recommended to get HIDA scan to rule it out recurrent cholecystitis. Severe volume overload with worsening ascites -Lasix 40 mg IV daily -25 mg Aldactone daily -Interventional radiology has been consulted for possible paracentesis. Procedure planned for Saturday Ileus post abdominal surgery -CT abdomen revealed mildly distended small bowel loops without transition point, likely ileus/enteritis. -surgery is on board. She was kept NPO before but started on her liquid diet. We will advance her diet as tolerated -we will correct her electrolytes. Hypophosphatemia -phosphorus 1.9. -started her on Neutra-Phos 3 times a day. Give her 1 dose of K-Phos IV 15 millimole MDD POA Anxiety POA -tele psych was consulted. Recommended to start her on Cymbalta 20 mg b.i.d. and Seroquel 25 mg q.h.s.. Protonix daily for GI prophylaxis SCD's for DVT prophylaxis Home medications have been reconciled. This plan has been discussed and approved by my attending. ATTESTATION BY PHYSICIAN I have seen and examined the patient. I reviewed the documentation, medical decision making, and treatment plan as noted by the resident physician above. I agree with the findings and plan of care. AYAKA BARR MD, SUNIL MD Oct 09, 2025 16:54
[2025-10-09 18:09] LABS: INR 1.15 (0.85-1.15)
[2025-10-09] MEDS ORDERED: COMPOUND IV MISC 1 EACH IVSOLN MISC PRN (18:30)
[2025-10-09] MEDS: ALBUMIN (HUMAN) 25% 50 ML IV SCH (21:30)
[2025-10-10 00:10] VITALS: BP 114/69; PULSE 78; RESP 18; TEMP 98.5
[2025-10-10 04:03] VITALS: BP 131/57; PULSE 73; RESP 19; TEMP 98.3
[2025-10-10 05:08] LABS: IMMATURE GRANULOCYTE ABSOLUTE 0.02 K/uL (0-1); NUCLEATED RED BLOOD CELLS 0.0 % (0.0-0.19); PLATELET COUNT (AUTO) 122 K/uL (130-400); RED BLOOD CELL COUNT(AUTO) 2.55 MIL/uL (4.00-5.50); RED CELL DISTRIBUTION WIDTH 18.5 % (11.0-15.5); WHITE BLOOD COUNT (AUTO) 3.6 K/uL (4.8-10.8)
[2025-10-10 05:31] LABS: CREATININE 0.8 mg/dL (0.5-1.0); GLOMERULAR FILTR. RATE CALC 86.0 mL/min (>90); GLUCOSE,RANDOM 79.0 mg/dL (70-105); PHOSPHORUS 2.7 mg/dL (2.5-4.9); SODIUM SERUM 140.0 mmol/L (136-145); UREA NITROGEN, BLOOD 8.0 mg/dL (7-18)
[2025-10-10 08:00] VITALS: BP 122/58; PULSE 72; RESP 19; TEMP 98; O2SAT 97
--- NOTE | 2025-10-10 08:39 | NUR ---
MORNING MEDICATIONS MORNING MEDICATIONS HELD AT THIS TIME FOR [id number] HIDA TO BE PREFORMED.
--- NOTE | 2025-10-10 15:32 | PN ---
This is a 55-year-old female with concerns of fluid overload Interval history: This 55-year-old female seen in her room resting Patient is scheduled for paracentesis tomorrow HIDA scan results pending WBCs unremarkable LFTs unremarkable vitals stable Patient tolerating liquid diet Physical exam General: Awake alert and oriented Heart: Regular rate and rhythm} Lungs: Clear to auscultation no distress Abdomen: [Soft, nontender, nondistended Assessment : This is a 55-year-old female with concerns of fluid overload and possible cholecystitis Plan: At this point in time we will await for HIDA scan results Patient to undergo paracentesis tomorrow Plan will be for NPO status at midnight Continue with diuretics Dr. Gann to be updated in patient's status and nursing report any further acute events Surgical case has been discussed with my supervising physician in the above plan was formulated and agreed upon We appreciate the hospitalist team for us to participate in patient's care. Greater than 45 minutes of time spent patient, reviewing chart, working on documentation Vitals/Labs Vital Signs Date Time Temp Pulse Resp B/P (MAP) Pulse Ox O2 Delivery O2 Flow Rate FiO2 10/10/25 08:00 98.1 72 19 122/58 96 Room Air 10/09/25 20:00 0 21 Laboratory Tests 10/10/25 04:50 Medications Current Medications Morphine Sulfate 2 mg ONCE ONCE IVP Last administered on 10/07/25at 19:38; Start 10/07/25 at 19:00; Stop 10/07/25 at 19:01; Status DC Ondansetron HCl 4 mg ONCE ONCE IVP Last administered on 10/07/25at 19:38; Start 10/07/25 at 19:00; Stop 10/07/25 at 19:01; Status DC Ceftriaxone Sodium 2 gm ONCE ONCE IVPB Last administered on 10/07/25at 22:55; Start 10/07/25 at 21:30; Stop 10/07/25 at 21:31; Status DC Sodium Chloride 500 ml @ 0 mls/hr ONCE ONCE IV Last administered on 10/07/25at 22:54; Start 10/07/25 at 21:30; Stop 10/07/25 at 21:31; Status DC Metoclopramide HCl 10 mg ONCE ONCE IVP Last administered on 10/07/25at 22:55; Start 10/07/25 at 22:00; Stop 10/07/25 at 22:01; Status DC Ondansetron HCl 4 mg Q6H PRN IV; Start 10/07/25 at 23:30; Stop 11/06/25 at 23:29 Morphine Sulfate 2 mg Q4H PRN IV Last administered on 10/10/25at 14:55; Start 10/07/25 at 23:30; Stop 10/14/25 at 23:29 Ceftriaxone Sodium 1 gm/ Sodium Chloride 50 ml @ 100 mls/hr Q24H IV; Start 10/08/25 at 09:00; Stop 10/07/25 at 23:39; Status DC Pantoprazole Sodium 40 mg DAILY IVP Last administered on 10/10/25at 09:23; Start 10/08/25 at 09:00; Stop 11/07/25 at 08:59 Insulin Human Regular INSULIN SLIDING SCAL... ACHS SQ; Start 10/08/25 at 07:30; Stop 11/07/25 at 07:29 Dextrose 50 ml AD PRN IV; Start 10/07/25 at 23:30; Stop 11/06/25 at 23:29 Glucagon 1 mg AD PRN IM; Start 10/07/25 at 23:30; Stop 11/06/25 at 23:29 Lactated Ringer's 1,000 ml @ 50 mls/hr Q20H IV Last administered on 10/08/25at 01:34; Start 10/07/25 at 23:30; Stop 10/08/25 at 10:45; Status DC Ceftriaxone Sodium 1 gm Q24H IVPB Last administered on 10/10/25at 00:36; Start 10/07/25 at 23:45; Stop 10/17/25 at 23:44 Pharmacy Profile Note 1 each AD MISC; Start 10/08/25 at 10:30; Stop 10/08/25 at 10:33; Status DC Vitamin B Complex 1,000 mcg DAILY PO Last administered on 10/09/25at 09:55; Start 10/09/25 at 09:00; Stop 11/08/25 at 08:59 Dicyclomine HCl 10 mg Q6H6 PO Last administered on 10/10/25at 05:49; Start 10/08/25 at 12:00; Stop 11/07/25 at 11:59 Folic Acid 1 mg DAILY PO Last administered on 10/09/25 09:54; Start 10/09/25 at 09:00; Stop 11/08/25 at 08:59 Quetiapine Fumarate 25 mg HS PO Last administered on 10/09/25at 21:27; Start 10/08/25 at 21:00; Stop 11/07/25 at 20:59 Sodium Bicarbonate 1,300 mg QID PO Last administered on 10/10/25at 14:16; Start 10/08/25 at 13:00; Stop 11/07/25 at 12:59 Midodrine 10 mg Q8H PO Last administered on 10/10/25at 03:01; Start 10/08/25 at 11:30; Stop 11/07/25 at 11:29 Pregabalin 25 mg DAILYDINNER PO Last administered on 10/09/25at 17:52; Start 10/08/25 at 17:00; Stop 11/07/25 at 16:59 Furosemide 40 mg DAILY IV Last administered on 10/10/25at 09:23; Start 10/09/25 at 09:00; Stop 11/08/25 at 08:59 Spironolactone 25 mg DAILY PO Last administered on 10/09/25at 09:54; Start 10/09/25 at 09:00; Stop 11/08/25 at 08:59 Duloxetine HCl 20 mg BID PO; Start 10/08/25 at 21:00; Stop 10/08/25 at 21:25; Status DC Duloxetine HCl 30 mg BID PO Last administered on 10/09/25 21:26; Start 10/08/25 at 22:00; Stop 11/07/25 at 21:59 Potassium Phos/ Sodium Phos 1 packet TID PO Last administered on 10/10/25at 14:17; Start 10/09/25 at 21:00; Stop 11/08/25 at 20:59 Potassium Phosphate 250 ml @ 42 mls/hr PROTOCOL ONCE IV Last administered on 10/09/25at 22:28; Start 10/09/25 at 16:30; Stop 10/09/25 at 22:27; Status DC Albumin Human 50 ml @ 0 mls/hr AD IV Last administered on 10/09/25at 21:30; Start 10/09/25 at 17:00; Stop 10/19/25 at 16:59 Magnesium Sulfate 50 ml @ 0 mls/hr PROTOCOL PRN IV; Start 10/10/25 at 10:00; Stop 11/09/25 at 09:59 BENEDICTO OBRIEN Jr. PAC Oct 10, 2025 15:32
[2025-10-10 16:00] VITALS: BP 127/72; PULSE 80; RESP 19; TEMP 97.8
--- NOTE | 2025-10-10 17:25 | HMCIMG ---
Examination Hepatobiliary study History cholecystitis (Hx) / cholecystitis, Static Images (DICOM Hx) (DICOM Hx) Technique Tc-99m mebrofenin were administered intravenously followed by acquisition of planar images of the abdomen. Findings Following administration of radiotracer, there is prompt appearance of normal hepatic contours, followed by appearance of activity in unremarkable appearing bile ducts. There is nonvisualization of the gallbladder at the conclusion of the examination, concerning for acute cholecystitis. IMPRESSION: 1. Nonvisualization of the gallbladder, concerning for acute cholecystitis. /[place]
--- NOTE | 2025-10-10 19:18 | PN ---
[facility] PROGRESS NOTE Date of Service: Oct 10, 2025 Time of Service: 19:02 SUBJECTIVE: This is a 55 year old female Diabetes, liver cirrhosis, esophageal varices, DVT, perisplenic abscess, acute gastritis, peritonitis with ESBL and E coli infection septic shock with a past surgical history of cholecystectomy, robotic sigmoid resection with takedown of colovesical fistula with a recent perforation of colonic anastomosis , diagnostic laparoscopy ,drain placement,abdominal wash out and creation of diverting loop ileostomy who was brought by EMS to the ED for complaints of abdominal pain and abdominal distention.Patient reports she was discharged yesterday from this facility even if she was not feeling well because she continues to have abdominal pain and distention she said and daughter was at bedside saying patient weighs 124 kg on admission and she was discharged home weighing 140 kgs and has been telling riri CERVANTES that patient is retaining fluids but still discharged her anyway she said.Patient states while at home she was unable to keep anything down because every time she eats her abdomen hurts and she became nauseated. Seen and examined patient in the ER awake,alert and coherent,patient appears uncomfortable and crying.Patient has diffuse abdominal tenderness on palpation.Patient has an Ileostomy which is patent and normally functioning.Patient denies fever,chills,vomiting,chest pain,palpitation and cough.Patient states she has occasional shortness of breath.Latest V/S latest vital signs temperature 99, heart rate 98, blood pressure 106/61 saturation 100% on room air. Labs: WBC 5.6, neutrophils 72, hemoglobin 9, hematocrit 29 and platelet count 137. Lactic acid 2.0, glucose 129, total calcium 7.7 albumin 2.2 nine the rest of the chemistries normal. Chest x-ray result revealed no acute cardiopulmonary pathology is evident. CT abdomen without contrast result revealed markedly progressed gross ascites and mesenteric fat stranding with generalized anasarca, concerning for worsening fluid overload. Moderate bilateral pleural effusions. Nodular hepatic margins consistent with cirrhotic changes stable. Distended small bowel loops without transition point likely ileus/enteritis new from prior. Calcified gallbladder wall stable. Post Ileostomy status. Stable scattered colonic diverticulosis. Small hiatus hernia stable removal of pigtail catheter from sub splenic collection with resultant mild peritoneal thickening. No acute intra-abdominal abnormality otherwise. While in the ER patient received morphine 2 mg IV, Zofran 4 mg IV Rocephin 2 g IV NS 500 IV bolus and Reglan 10 mg IV.Patient is pending for NGT insertion.Er called and recommended to admit the patient. 10/08/2025: Patient was seen and examined this morning at bedside. The patient is accompanied by her daughter. The patient is on NG tube, which has very minimal output. The patient appears uncomfortable with the NG tube, and complains that it is bothering her and causing her pain. The patients daughter states the patient is not regularly using the restroom to urinate. The patient reports she believes she is retaining urine. We will order a bladder scan and follow up with the results. The patients abdomen appears distended upon physical examination. Patient reports tenderness bilaterally in the flank regions. Bowel sounds were hypoactive upon auscultation. No peripheral edema is noted. Heart sounds are h eard, no murmurs appreciated. Interventional radiology has been called for possible paracentesis due to the patients ascites. The patient will be started on daily IV Lasix and Aldactone. We will continue to monitor her electrolytes daily, and correct accordingly. Pregabalin has been added to her pain regimen. The patient denies chest pain, shortness of breath, nausea, vomiting, fever, chills. 10/09/2025: She was evaluated at the bedside this morning. No overnight event. She is AAO x3. She do complain of mild abdominal discomfort on the right and left upper abdomen. She is hemodynamically stable. NG tube was taken out and started on clear liquid diet. Labs remarkable for WBC 3.2, hemoglobin 8.4, platelet 116, phosphorus 1.9, CRP 40.1, bicarbonate 2. 24 hour blood culture negative. She is on [id number] mg, furosemide 40 mg IV, duloxetine, quetiapine, pregabalin, sodium bicarbonate, midodrine, pantoprazole, Rocephin and PRN pain med. She do have a large ascites. Plan is to get ascitic tapping for both therapeutic and diagnostic. Surgery recommended to get HIDA scan for the possible recurrent acute cholecystitis. Psychiatry recommended to restart her on Cymbalta and Seroquel. For her hypo phosphatase Kaity, we have started her on Neutra-Phos times a day and give 1 dose of IV [id number]-[id number] millimole. GI on the board. Rest of the plan as discussed below. 10/10/2025: Patient is seen and evaluated in the room 306. She do complain of mild abdominal discomfort on the right and left upper abdomen. Her vitals are in the normal range. Her labs are in the normal range except for hemoglobin is 8.1, magnesium is 1.7. She had her HIDA scan done today and it showed acute cholecystitis. As her magnesium is low we replaced it. She is supposed to undergo paracentesis tomorrow. REVIEW OF SYSTEMS CONSTITUTIONAL: Denies fevers, chills, or night sweats. No unintentional weight loss reported. NEUROLOGICAL: Denies headache, amaurosis fugax, motor weakness, sensory deficit, vertigo/spinning sensation, gait abnormalities, or tremors. ENT: No hearing loss, otalgia, otorrhea, rhinitis, rhinorrhea, hoarseness, or sore throat. CARDIOVASCULAR: Denies any exertional angina, dyspnea on exertion, orthopnea, paroxysmal nocturnal dyspnea, palpitations, life-threatening arrhythmias, claudication. PULMONARY: Denies any shortness of breath, cough, phlegm/sputum, hemoptysis, pleuritic chest pain. SLEEP: Denies morning headaches, daytime somnolence or napping. Denies difficulty falling asleep, staying asleep, waking from sleep. Denies knowledge of snoring. GASTROINTESTINAL: Complains of abdominal distention, and abdominal pain. Denies any type of dysphagia to either liquids or solids. Denies vomiting, pyrosis, early satiety, diarrhea, constipation, or changes in stool consistency or caliber. Denies coffee-ground emesis, hematemesis, hematochezia, or melanotic stools. GENITOURINARY: Denies frequency, urgency, nocturia, hematuria or incontinence (Storage/Irritative symptoms.) Low urinary stream, straining to void, urinary intermittency or hesitancy, splitting of the voiding stream, terminal dribbling. ENDOCRINOLOGIC: Denies polyuria, polydipsia, polyphagia or heat/cold intolerances. HEMATOLOGIC: Denies thrombophilia/previous clots, or coagulopathy/bleeding disorders. ONCOLOGIC: Denies personal history of malignancy. DERMATOLOGIC: Denies rashes or pruritus. PSYCHIATRIC: Denies any suicidal or homicidal ideation. Denies hallucinations. PHYSICAL EXAM GENERAL APPEARANCE: The patient is awake, alert, and oriented, in no acute cardiopulmonary distress. NEUROLOGICAL: Cranial nerves II-XII grossly intact. Motor is 5/5 in bilateral upper and lower extremities proximal to distal. No sensory deficits. HEENT: Face is symmetric. Pupils are equal and reactive. Extraocular movements are intact. NECK: Supple. No JVD. No thyromegaly. No submental, submandibular, pre- /postauricular, occipital or supraclavicular lymphadenopathy. CHEST: Normal chest expansion. No Telemetry. LUNGS: Absence of any rales, rhonchi or any wheezing. CARDIOVASCULAR: Regular. S1 and S2 normal. No appreciable rubs, murmurs or gallops. ABDOMEN: Positive hypoactive bowel sounds, diffuse tenderness x4 abdominal quadrants patient+ Ileostomy Soft and distended .There is no rebound, voluntary guarding, or rigidity. : Deferred. No Dueñas. EXTREMITIES: Non-edematous and not cyanotic. No clubbing. Good capillary refill. SKIN: No skin breakdown. Vital Signs (last 8hr) Date Time Temp Pulse Resp B/P (MAP) Pulse Ox O2 Delivery O2 Flow Rate FiO2 10/10/25 16:00 97.9 80 19 127/72 98 Room Air LABS: Laboratory: Test 10/10/25 16:59 10/10/25 04:50 10/09/25 05:13 Range/Units Whole Blood Glucose 72 70-110 MG/DL White Blood Count 3.6 L 4.8-10.8 K/uL Red Blood Count 2.55 L 4.00-5.50 MIL/uL Hemoglobin 8.1 L 12.0-16.0 g/dL Hematocrit 25.4 L 36-48 % Mean Corpuscular Volume 99.6 H 79-99 fL Mean Corpuscular Hemoglobin 31.8 27.0-33.0 pg Mean Corpuscular Hemoglobin Concent 31.9 L 32.0-36.0 g/dL Red Cell Distribution Width 18.5 H 11.0-15.5 % Platelet Count 122 L 130-400 K/uL Mean Platelet Volume 9.9 7.5-10.5 fL Immature Granulocyte % (Auto) 0.6 0-1 % Neutrophils (%) (Auto) 59.8 40.0-77.0 % Lymphocytes (%) (Auto) 23.6 21.0-51.0 % Monocytes (%) (Auto) 10.4 3.0-13.0 % Eosinophils (%) (Auto) 4.8 0.0-8.0 % Basophils (%) (Auto) 0.8 0.0-5.0 % Neutrophils # (Auto) 2.1 1.8-7.7 K/uL Lymphocytes # (Auto) 0.8 L 1.0-4.8 K/uL Monocytes # (Auto) 0.4 0.1-1.0 K/uL Eosinophils # (Auto) 0.17 0.00-0.70 K/uL Basophils # (Auto) 0.03 0.00-0.20 K/uL Absolute Immature Granulocyte (auto 0.02 0-1 K/uL Nucleated Red Blood Cells 0.0 0.0-0.19 % Sodium Level 140 136-145 mmol/L Potassium Level 3.7 3.5-5.1 mmol/L Chloride Level 109 101-111 mmol/L Carbon Dioxide Level 21 21-32 mmol/L Blood Urea Nitrogen 8 7-18 mg/dL Creatinine 0.8 0.5-1.0 mg/dL Glomerular Filtration Rate Calc 86 >90 mL/min Random Glucose 79 70-105 mg/dL Total Calcium 7.6 L 8.5-10.1 mg/dL Phosphorus Level 2.7 2.5-4.9 mg/dL Magnesium Level 1.70 L 1.80-2.40 mg/dL Prothrombin Time 12.0 H 9.6-11.6 SEC Prothromb Time International Ratio 1.15 0.85-1.15 Total Bilirubin 0.5 0.2-1.0 mg/dL Aspartate Amino Transf (AST/SGOT) 35 10-37 U/L Alanine Aminotransferase (ALT/SGPT) 22 12-78 U/L Alkaline Phosphatase 79 50-136 U/L C-Reactive Protein, Quantitative 40.10 H 0.5-3.0 mg/L Total Protein 5.1 L 6.0-8.3 g/dL Albumin 2.0 L 3.5-5.0 g/dL Procalcitonin < 0.05 L 0.05-0.5 ng/mL Current Medications Medications (Trade) Dose Ordered Sig/Gregory Route PRN Reason Start Time Stop Time Status Last Admin Dose Admin Albumin Human 50 ml @ 0 mls/hr AD IV 10/09/25 17:00 10/19/25 16:59 10/09/25 21:30 50 MLS/HR Ceftriaxone Sodium 1 gm/ Sodium Chloride 50 ml @ 100 mls/hr Q24H IV 10/08/25 09:00 10/07/25 23:39 DC Ceftriaxone Sodium (ROCEphine 1G INJ) 1 gm Q24H IVPB 10/07/25 23:45 10/17/25 23:44 10/10/25 00:36 1 GM Dextrose (D50w) 50 ml AD PRN IV HYPOGLYCEMIA PROTOCOL 10/07/25 23:30 11/06/25 23:29 Dicyclomine HCl (Bentyl 20mg Tab) 10 mg Q6H6 PO 10/08/25 12:00 11/07/25 11:59 10/10/25 18:11 10 MG Duloxetine HCl (CymbALTA 30 mg CAP) 20 mg BID PO 10/08/25 21:00 10/08/25 21:25 DC Duloxetine HCl (CymbALTA 30 mg CAP) 30 mg BID PO 10/08/25 22:00 11/07/25 21:59 10/09/25 21:26 30 MG Folic Acid (FOLic ACID 1 MG TABLET) 1 mg DAILY PO 10/09/25 09:00 11/08/25 08:59 10/09/25 09:54 1 MG Furosemide (LASix 40MG VIAL) 40 mg DAILY IV 10/09/25 09:00 11/08/25 08:59 10/10/25 09:23 40 MG Glucagon (Glucagon 1mg Kit) 1 mg AD PRN IM HYPOGLYCEMIA PROTOCOL 10/07/25 23:30 11/06/25 23:29 Insulin Human Regular (humuLIN R 100 UNIT/ML 3ML) INSULIN SLIDING SCAL... ACHS SQ 10/08/25 07:30 11/07/25 07:29 Lactated Ringer's 1,000 ml @ 50 mls/hr Q20H IV 10/07/25 23:30 10/08/25 10:45 DC 10/08/25 01:34 50 MLS/HR Magnesium Sulfate 50 ml @ 0 mls/hr PROTOCOL PRN IV MAG LEVEL BELOW 2.0 10/10/25 10:00 11/09/25 09:59 Midodrine (PROAMatine 5 MG TABLET) 10 mg Q8H PO 10/08/25 11:30 11/07/25 11:29 10/10/25 03:01 10 MG Morphine Sulfate (morPHINE 2MG SYG) 2 mg Q4H PRN IV SEVERE PAIN (7-10) 10/07/25 23:30 10/14/25 23:29 10/10/25 14:55 2 MG Ondansetron HCl (zoFRAN 4MG INJ) 4 mg Q6H PRN IV NAUSEA/VOMITING 10/07/25 23:30 11/06/25 23:29 10/10/25 17:02 4 MG Pantoprazole Sodium (PROTonix 40MG INJ) 40 mg DAILY IVP 10/08/25 09:00 11/07/25 08:59 10/10/25 09:23 40 MG Pharmacy Profile Note (Lace Assessment) 1 each AD MISC 10/08/25 10:30 10/08/25 10:33 DC Potassium Phos/ Sodium Phos (PHOS-NaK PACKET 1 EACH) 1 packet TID PO 10/09/25 21:00 11/08/25 20:59 10/10/25 14:17 1 PACKET Pregabalin (LYRica 25MG) 25 mg DAILYDINNER PO 10/08/25 17:00 11/07/25 16:59 10/10/25 17:00 25 MG Quetiapine Fumarate (SEROquel 25 mg TAB) 25 mg HS PO 10/08/25 21:00 11/07/25 20:59 10/09/25 21:27 25 MG Sodium Bicarbonate (Sodium Bicarbonate) 1,300 mg QID PO 10/08/25 13:00 11/07/25 12:59 10/10/25 17:00 1,300 MG Spironolactone (Aldactone 25mg) 25 mg DAILY PO 10/09/25 09:00 11/08/25 08:59 10/09/25 09:54 25 MG Vitamin B Complex (Vitamin B-12) 1,000 mcg DAILY PO 10/09/25 09:00 11/08/25 08:59 10/09/25 09:55 1,000 MCG DIAGNOSTICS / RADIOLOGY: [ ] ASSESSMENT: Acute abdominal pain POA Severe volume overload with worsening ascites per CT POA Mesenteric fat stranding likely inflammatory/ edematous process per CT POA Ileus post abdominal surgery POA Low hemoglobin Hypophosphatemia Hyomagnesemia Ileostomy status POA Protein calorie malnutrition POA Moderate bilateral pleural effusion CP POA Chronic anemia POA Diabetes POA PLAN: Acute abdominal pain -patient currently on clear liquid diet. We will advance her diet as she tolerated. -procalcitonin less than 0.05, CRP 40.10. -Patient is on Rocephin (day 4) for empiric coverage. -Pregabalin has been added to the patients pain regimen. -surgery recommended to get HIDA scan and it showed acute cholecystitis. Severe volume overload with worsening ascites -Lasix 40 mg IV daily -25 mg Aldactone daily -Interventional radiology has been consulted for possible paracentesis. Procedure planned for Saturday Ileus post abdominal surgery -CT abdomen revealed mildly distended small bowel loops without transition point, likely ileus/enteritis. -surgery is on board. She was kept NPO before but started on her liquid diet. We will advance her diet as tolerated -we will correct her electrolytes. Low hemoglobin - Today her hemoglobin is 8.1, MCV is 99.6, RDW is 18.5. -We will continue to monitor her labs. Hypophosphatemia -phosphorus 2.7. -started her on Neutra-Phos 3 times a day. Give her 1 dose of K-Phos IV 15 millimole Hyomagnesemia - Today her magnesium level is 1.7. -We replaced it by giving magnesium sulfate. -We will repeat her labs tomorrow. MDD POA Anxiety POA -tele psych was consulted. Recommended to start her on Cymbalta 20 mg b.i.d. and Seroquel 25 mg q.h.s.. Ileostomy status POA -Output form the ileostomy is 1300ml today. Protonix daily for GI prophylaxis SCD's for DVT prophylaxis Home medications have been reconciled. This plan has been discussed and approved by my attending. ATTESTATION BY PHYSICIAN I have seen and examined the patient. I reviewed the documentation, medical decision making, and treatment plan as noted by the resident physician above. I agree with the findings and plan of care. AYAKA BARR MD, AKSHAY MD Oct 10, 2025 19:18
[2025-10-10 20:00] VITALS: O2SAT 97
[2025-10-10 20:33] VITALS: BP 133/81; PULSE 80; RESP 18; TEMP 97.8
[2025-10-11] VITALS (8 sets, daily range): BP systolic 115–122; BP diastolic 55–66; PULSE 77–89; RESP 16–20; TEMP 98–98.5; O2SAT 96–98
[2025-10-11 05:08] LABS: NUCLEATED RED BLOOD CELLS 0.0 % (0.0-0.19); PLATELET COUNT (AUTO) 108 K/uL (130-400); RED BLOOD CELL COUNT(AUTO) 2.60 MIL/uL (4.00-5.50); RED CELL DISTRIBUTION WIDTH 18.1 % (11.0-15.5); WHITE BLOOD COUNT (AUTO) 2.9 K/uL (4.8-10.8)
[2025-10-11 05:19] LABS: CREATININE 0.7 mg/dL (0.5-1.0); GLOMERULAR FILTR. RATE CALC 101.0 mL/min (>90); GLUCOSE,RANDOM 61.0 mg/dL (70-105); PHOSPHORUS 2.0 mg/dL (2.5-4.9); SODIUM SERUM 143.0 mmol/L (136-145); UREA NITROGEN, BLOOD 9.0 mg/dL (7-18)
[2025-10-11] MEDS: DEXTROSE 50%-WATER 50 ML DISP.SYRIN IV PRN (05:19)
[2025-10-11 05:47] LABS: % IRON SATURATION 23.9 % (22-44); IRON, SERUM 40.0 mcg/dL (50-170)
[2025-10-11] MEDS: MAGNESIUM 2GM PREMIX 50ML 50 ML IV PRN (06:16)
[2025-10-11 07:16] LABS: EOSINOPHILS % (MANUAL) 1 % (1-6); LYMPHOCYTES % (MANUAL) 18 % (22-44); MAN.DIFF COMMENT-IMPRESSION MANUAL DIFFERENTIAL; MONOCYTES % (MANUAL) 3 % (2-9); PLATELET MORPHOLOGY COMMENT SLIGHTLY DECREASED; SEGMENTED NEUTROPHILS % 78 % (40-70); WBC MORPHOLOGY CONSISTENT W/DIFF
[2025-10-11] MEDS: M.V.I. IV [ADULT] 10 ML, MULTITRACE-4 ADULT 10ML VIAL 3 ML in CLINIMIX-E4.25%AA/D5+LYT2... IV ONE (12:30)
[2025-10-11] MEDS ORDERED: COMPOUND IV REFRIGERATED 1 EACH IVSOLN MISC PRN (13:00)
--- NOTE | 2025-10-11 13:45 | NUR ---
U/S GD PARACENTESIS PROCEDURE PERFORMED BY DR Marina FIORE. PUNCTURE SITE RUQ AND PATIENT TOLERATED PROCEDURE WELL. TOTAL REMOVED 1 LITER OF CLEAR YELLOW FLUID. END OF PROCEDURE AT 1330. CATHETER REMOVED AND DRESSING APPLIED. NO BLEEDING NOTED. REPORT GIVEN TO Matthew DE DIOS LVN AND PATIENT TRANSPORTED TO [facility] [place] [facility] AT 1345. AAO X3 WITH NO C/O PAIN. SPECIMEN SENT TO LAB.
[2025-10-11 15:14] LABS: BODY FLUID RBC 816 /cu. mm.; BODY FLUID WBC 107 /cu. mm.
[2025-10-11 15:15] LABS: APPEARANCE BODY FLUID SLIGHTLY CLOUDY (CLEAR); COLOR,BODY FLUID YELLOW (LT YELLOW); SPECIMENTYPE,BODY FLUID ASCITES; TOTAL VOLUME,BODY FLUID 850 mL
--- NOTE | 2025-10-11 16:25 | PN ---
This is a 55-year-old female with a significant surgical history with cholecystitis Interval history: This 55-year-old female seen in her room Patient has just returning from paracentesis where one L of fluid was removed No significant abdominal pain at time of exam Patient is NPO Labs and vitals stable Physical exam General: Awake alert and oriented Heart: Regular rate and rhythm} Lungs: Clear to auscultation no distress Abdomen: [Soft, nontender, nondistended Assessment : This is a 55-year-old female with continued cholecystitis Plan: Surgical standpoint patient is likely to be taken to surgery Saturday with Dr. Gann Patient to be allowed diet Repeat CBC and CMP Continue with routine vitals Surgical team to follow patient closely nursing report any further acute events Surgical case has been discussed with my supervising physician in the above plan was formulated and agreed upon We appreciate the hospitalist team for us to participate in patient's care. Greater than 45 minutes of time spent patient, reviewing chart, working on documentation Vitals/Labs Vital Signs Date Time Temp Pulse Resp B/P (MAP) Pulse Ox O2 Delivery O2 Flow Rate FiO2 10/11/25 16:06 98.4 89 20 116/66 97 Room Air 10/11/25 12:44 0 21 Laboratory Tests 10/11/25 04:48 Medications Current Medications Morphine Sulfate 2 mg ONCE ONCE IVP Last administered on 10/07/25at 19:38; Start 10/07/25 at 19:00; Stop 10/07/25 at 19:01; Status DC Ondansetron HCl 4 mg ONCE ONCE IVP Last administered on 10/07/25 19:38; Start 10/07/25 at 19:00; Stop 10/07/25 at 19:01; Status DC Ceftriaxone Sodium 2 gm ONCE ONCE IVPB Last administered on 10/07/25at 22:55; Start 10/07/25 at 21:30; Stop 10/07/25 at 21:31; Status DC Sodium Chloride 500 ml @ 0 mls/hr ONCE ONCE IV Last administered on 10/07/25at 22:54; Start 10/07/25 at 21:30; Stop 10/07/25 at 21:31; Status DC Metoclopramide HCl 10 mg ONCE ONCE IVP Last administered on 10/07/25at 22:55; Start 10/07/25 at 22:00; Stop 10/07/25 at 22:01; Status DC Ondansetron HCl 4 mg Q6H PRN IV Last administered on 10/10/25at 17:02; Start 10/07/25 at 23:30; Stop 11/06/25 at 23:29 Morphine Sulfate 2 mg Q4H PRN IV Last administered on 10/10/25at 14:55; Start 10/07/25 at 23:30; Stop 10/14/25 at 23:29 Ceftriaxone Sodium 1 gm/ Sodium Chloride 50 ml @ 100 mls/hr Q24H IV; Start 10/08/25 at 09:00; Stop 10/07/25 at 23:39; Status DC Pantoprazole Sodium 40 mg DAILY IVP Last administered on 10/11/25at 09:53; Start 10/08/25 at 09:00; Stop 11/07/25 at 08:59 Insulin Human Regular INSULIN SLIDING SCAL... ACHS SQ; Start 10/08/25 at 07:30; Stop 11/07/25 at 07:29 Dextrose 50 ml AD PRN IV Last administered on 10/11/25at 05:19; Start 10/07/25 at 23:30; Stop 10/11/25 at 11:30; Status DC Glucagon 1 mg AD PRN IM; Start 10/07/25 at 23:30; Stop 11/06/25 at 23:29 Lactated Ringer's 1,000 ml @ 50 mls/hr Q20H IV Last administered on 10/08/25at 01:34; Start 10/07/25 at 23:30; Stop 10/08/25 at 10:45; Status DC Ceftriaxone Sodium 1 gm Q24H IVPB Last administered on 10/11/25at 01:14; Start 10/07/25 at 23:45; Stop 10/17/25 at 23:44 Pharmacy Profile Note 1 each AD MISC; Start 10/08/25 at 10:30; Stop 10/08/25 at 10:33; Status DC Vitamin B Complex 1,000 mcg DAILY PO Last administered on 10/09/25at 09:55; Start 10/09/25 at 09:00; Stop 11/08/25 at 08:59 Dicyclomine HCl 10 mg Q6H6 PO Last administered on 10/11/25at 05:19; Start 10/08/25 at 12:00; Stop 11/07/25 at 11:59 Folic Acid 1 mg DAILY PO Last administered on 10/09/25at 09:54; Start 10/09/25 at 09:00; Stop 11/08/25 at 08:59 Quetiapine Fumarate 25 mg HS PO Last administered on 10/10/25at 20:31; Start 10/08/25 at 21:00; Stop 11/07/25 at 20:59 Sodium Bicarbonate 1,300 mg QID PO Last administered on 10/10/25at 20:30; Start 10/08/25 at 13:00; Stop 11/07/25 at 12:59 Midodrine 10 mg Q8H PO Last administered on 10/10/25at 03:01; Start 10/08/25 at 11:30; Stop 11/07/25 at 11:29 Pregabalin 25 mg DAILYDINNER PO Last administered on 10/10/25at 17:00; Start 10/08/25 at 17:00; Stop 11/07/25 at 16:59 Furosemide 40 mg DAILY IV Last administered on 10/11/25at 09:54; Start 10/09/25 at 09:00; Stop 11/08/25 at 08:59 Spironolactone 25 mg DAILY PO Last administered on 10/09/25at 09:54; Start 10/09/25 at 09:00; Stop 11/08/25 at 08:59 Duloxetine HCl 20 mg BID PO; Start 10/08/25 at 21:00; Stop 10/08/25 at 21:25; Status DC Duloxetine HCl 30 mg BID PO Last administered on 10/10/25at 20:30; Start 10/08/25 at 22:00; Stop 11/07/25 at 21:59 Potassium Phos/ Sodium Phos 1 packet TID PO Last administered on 10/10/25at 20:31; Start 10/09/25 at 21:00; Stop 10/11/25 at 11:30; Status DC Potassium Phosphate 250 ml @ 42 mls/hr PROTOCOL ONCE IV Last administered on 10/09/25at 22:28; Start 10/09/25 at 16:30; Stop 10/09/25 at 22:27; Status DC Albumin Human 50 ml @ 0 mls/hr AD IV Last administered on 10/09/25at 21:30; Start 10/09/25 at 17:00; Stop 10/19/25 at 16:59 Magnesium Sulfate 50 ml @ 0 mls/hr PROTOCOL PRN IV Last administered on 10/11/25at 06:16; Start 10/10/25 at 10:00; Stop 11/09/25 at 09:59 Metronidazole/ Sodium Chloride 100 ml @ 100 mls/hr Q8H IVPB Last administered on 10/11/25at 14:47; Start 10/10/25 at 22:00; Stop 10/20/25 at 21:59 Potassium Phosphate 250 ml @ 42 mls/hr PROTOCOL ONCE IV; Start 10/11/25 at 11:30; Stop 10/11/25 at 17:27 Multivitamins/ Minerals 10 ml/ Chromium/Copper/ Manganese/Zinc 3 ml/Amino Acids/ Electrolytes/ Dextrose 2,000 ml @ 83.333 mls/ hr ONCE ONCE IV Last administered on 10/11/25at 12:30; Start 10/11/25 at 12:30; Stop 10/12/25 at 12:29 BENEDICTO OBRIEN Jr. PAC Oct 11, 2025 16:25
--- NOTE | 2025-10-11 17:55 | PN ---
[facility] PROGRESS NOTE Date of Service: Oct 11, 2025 Time of Service: 17:49 SUBJECTIVE: This is a 55 year old female Diabetes, liver cirrhosis, esophageal varices, DVT, perisplenic abscess, acute gastritis, peritonitis with ESBL and E coli infection septic shock with a past surgical history of cholecystectomy, robotic sigmoid resection with takedown of colovesical fistula with a recent perforation of colonic anastomosis , diagnostic laparoscopy ,drain placement,abdominal wash out and creation of diverting loop ileostomy who was brought by EMS to the ED for complaints of abdominal pain and abdominal distention.Patient reports she was discharged yesterday from this facility even if she was not feeling well because she continues to have abdominal pain and distention she said and daughter was at bedside saying patient weighs 124 kg on admission and she was discharged home weighing 140 kgs and has been telling riri CERVANTES that patient is retaining fluids but still discharged her anyway she said.Patient states while at home she was unable to keep anything down because every time she eats her abdomen hurts and she became nauseated. Seen and examined patient in the ER awake,alert and coherent,patient appears uncomfortable and crying.Patient has diffuse abdominal tenderness on palpation.Patient has an Ileostomy which is patent and normally functioning.Patient denies fever,chills,vomiting,chest pain,palpitation and cough.Patient states she has occasional shortness of breath.Latest V/S latest vital signs temperature 99, heart rate 98, blood pressure 106/61 saturation 100% on room air. Labs: WBC 5.6, neutrophils 72, hemoglobin 9, hematocrit 29 and platelet count 137. Lactic acid 2.0, glucose 129, total calcium 7.7 albumin 2.2 nine the rest of the chemistries normal. Chest x-ray result revealed no acute cardiopulmonary pathology is evident. CT abdomen without contrast result revealed markedly progressed gross ascites and mesenteric fat stranding with generalized anasarca, concerning for worsening fluid overload. Moderate bilateral pleural effusions. Nodular hepatic margins consistent with cirrhotic changes stable. Distended small bowel loops without transition point likely ileus/enteritis new from prior. Calcified gallbladder wall stable. Post Ileostomy status. Stable scattered colonic diverticulosis. Small hiatus hernia stable removal of pigtail catheter from sub splenic collection with resultant mild peritoneal thickening. No acute intra-abdominal abnormality otherwise. While in the ER patient received morphine 2 mg IV, Zofran 4 mg IV Rocephin 2 g IV NS 500 IV bolus and Reglan 10 mg IV.Patient is pending for NGT insertion.Er called and recommended to admit the patient. 10/08/2025: Patient was seen and examined this morning at bedside. The patient is accompanied by her daughter. The patient is on NG tube, which has very minimal output. The patient appears uncomfortable with the NG tube, and complains that it is bothering her and causing her pain. The patients daughter states the patient is not regularly using the restroom to urinate. The patient reports she believes she is retaining urine. We will order a bladder scan and follow up with the results. The patients abdomen appears distended upon physical examination. Patient reports tenderness bilaterally in the flank regions. Bowel sounds were hypoactive upon auscultation. No peripheral edema is noted. Heart sounds are h eard, no murmurs appreciated. Interventional radiology has been called for possible paracentesis due to the patients ascites. The patient will be started on daily IV Lasix and Aldactone. We will continue to monitor her electrolytes daily, and correct accordingly. Pregabalin has been added to her pain regimen. The patient denies chest pain, shortness of breath, nausea, vomiting, fever, chills. 10/09/2025: She was evaluated at the bedside this morning. No overnight event. She is AAO x3. She do complain of mild abdominal discomfort on the right and left upper abdomen. She is hemodynamically stable. NG tube was taken out and started on clear liquid diet. Labs remarkable for WBC 3.2, hemoglobin 8.4, platelet 116, phosphorus 1.9, CRP 40.1, bicarbonate 2. 24 hour blood culture negative. She is on [id number] mg, furosemide 40 mg IV, duloxetine, quetiapine, pregabalin, sodium bicarbonate, midodrine, pantoprazole, Rocephin and PRN pain med. She do have a large ascites. Plan is to get ascitic tapping for both therapeutic and diagnostic. Surgery recommended to get HIDA scan for the possible recurrent acute cholecystitis. Psychiatry recommended to restart her on Cymbalta and Seroquel. For her hypo phosphatase Kaity, we have started her on Neutra-Phos times a day and give 1 dose of IV [id number] millimole. GI on the board. Rest of the plan as discussed below. 10/10/2025: Patient is seen and evaluated in the room 306. She do complain of mild abdominal discomfort on the right and left upper abdomen. Her vitals are in the normal range. Her labs are in the normal range except for hemoglobin is 8.1, magnesium is 1.7. She had her HIDA scan done today and it showed acute cholecystitis. As her magnesium is low we replaced it. She is supposed to undergo paracentesis tomorrow. 10/11/2025: Patient is seen and evaluated in the room 306. She complained of mild abdominal pain. Her vitals are in the normal range. Her labs are normal except for hemoglobin is 8.2, WBC is 2.9, MCV is 101.2, RDW is 18.1, platelet is 108, magnesium is 1.5, phosphorus is 2, iron is 40, TIBC is 167,% saturation is 23.9. We gave her PPN. She underwent paracentesis today and they removed 1litre of fluid and they sent it for analysis and it is negative. Her blood culture is negative. Gram stain of ascitic fluid no organisms are seen. We stopped Phos Nak packet to IV potassium phosphate. We will repeat the phosphorus tomorrow. She is started on regular diet. General surgery recommended cholecystectomy on Saturday. So we will hold the lasix tomorrow. REVIEW OF SYSTEMS CONSTITUTIONAL: Denies fevers, chills, or night sweats. No unintentional weight loss reported. NEUROLOGICAL: Denies headache, amaurosis fugax, motor weakness, sensory defi cit, vertigo/spinning sensation, gait abnormalities, or tremors. ENT: No hearing loss, otalgia, otorrhea, rhinitis, rhinorrhea, hoarseness, or sore throat. CARDIOVASCULAR: Denies any exertional angina, dyspnea on exertion, orthopnea, paroxysmal nocturnal dyspnea, palpitations, life-threatening arrhythmias, claudication. PULMONARY: Denies any shortness of breath, cough, phlegm/sputum, hemoptysis, pleuritic chest pain. SLEEP: Denies morning headaches, daytime somnolence or napping. Denies difficulty falling asleep, staying asleep, waking from sleep. Denies knowledge of snoring. GASTROINTESTINAL: Complains of abdominal distention, and abdominal pain. Denies any type of dysphagia to either liquids or solids. Denies vomiting, pyrosis, early satiety, diarrhea, constipation, or changes in stool consistency or caliber. Denies coffee-ground emesis, hematemesis, hematochezia, or melanotic stools. GENITOURINARY: Denies frequency, urgency, nocturia, hematuria or incontinence (Storage/Irritative symptoms.) Low urinary stream, straining to void, urinary intermittency or hesitancy, splitting of the voiding stream, terminal dribbling. ENDOCRINOLOGIC: Denies polyuria, polydipsia, polyphagia or heat/cold intole rances. HEMATOLOGIC: Denies thrombophilia/previous clots, or coagulopathy/bleeding disorders. ONCOLOGIC: Denies personal history of malignancy. DERMATOLOGIC: Denies rashes or pruritus. PSYCHIATRIC: Denies any suicidal or homicidal ideation. Denies hallucinations. PHYSICAL EXAM GENERAL APPEARANCE: The patient is awake, alert, and oriented, in no acute cardiopulmonary distress. NEUROLOGICAL: Cranial nerves II-XII grossly intact. Motor is 5/5 in bilateral upper and lower extremities proximal to distal. No sensory deficits. HEENT: Face is symmetric. Pupils are equal and reactive. Extraocular movements are intact. NECK: Supple. No JVD. No thyromegaly. No submental, submandibular, pre- /postauricular, occipital or supraclavicular lymphadenopathy. CHEST: Normal chest expansion. No Telemetry. LUNGS: Absence of any rales, rhonchi or any wheezing. CARDIOVASCULAR: Regular. S1 and S2 normal. No appreciable rubs, murmurs or gallops. ABDOMEN: Positive hypoactive bowel sounds, diffuse tenderness x4 abdominal quadrants patient+ Ileostomy Soft and distended .There is no rebound, volu ntary guarding, or rigidity. : Deferred. No Dueñas. EXTREMITIES: Non-edematous and not cyanotic. No clubbing. Good capillary refill. SKIN: No skin breakdown. Vital Signs (last 8hr) Date Time Temp Pulse Resp B/P (MAP) Pulse Ox O2 Delivery O2 Flow Rate FiO2 10/11/25 16:06 98.4 89 20 116/66 97 Room Air 10/11/25 12:44 98 Room Air* 0 21 10/11/25 11:40 98.1 88 20 116/57 96 Room Air LABS: Laboratory: Test 10/11/25 15:39 10/11/25 13:00 10/11/25 04:48 10/10/25 04:50 Range/Units Whole Blood Glucose 129 #H 70-110 MG/DL Body Fluid Source ASCITES Body Fluid Volume 850 mL Body Fluid Color YELLOW LT YELLOW Body Fluid Supernatant Appearance SLIGHTLY CLOUDY H CLEAR Body Fluid WBC 107 /cu. mm. Body Fluid RBC 816 /cu. mm. White Blood Count 2.9 L 4.8-10.8 K/uL Red Blood Count 2.60 L 4.00-5.50 MIL/uL Hemoglobin 8.2 L 12.0-16.0 g/dL Hematocrit 26.3 L 36-48 % Mean Corpuscular Volume 101.2 H 79-99 fL Mean Corpuscular Hemoglobin 31.5 27.0-33.0 pg Mean Corpuscular Hemoglobin Concent 31.2 L 32.0-36.0 g/dL Red Cell Distribution Width 18.1 H 11.0-15.5 % Platelet Count 108 L 130-400 K/uL Mean Platelet Volume 9.8 7.5-10.5 fL Segmented Neutrophils % 78 H 40-70 % Lymphocytes % (Manual) 18 L 22-44 % Monocytes % (Manual) 3 2-9 % Eosinophils % (Manual) 1 1-6 % Nucleated Red Blood Cells 0.0 0.0-0.19 % Differential Comment MANUAL DIFFERENTIAL White Cell Morphology Comment CONSISTENT W/DIFF Platelet Morphology Comment SLIGHTLY DECREASED Red Blood Cell Morphology POIKILOCYTOSIS 1+ Sodium Level 143 136-145 mmol/L Potassium Level 3.5 3.5-5.1 mmol/L Chloride Level 109 101-111 mmol/L Carbon Dioxide Level 24 21-32 mmol/L Blood Urea Nitrogen 9 7-18 mg/dL Creatinine 0.7 0.5-1.0 mg/dL Glomerular Filtration Rate Calc 101 >90 mL/min Random Glucose 61 L 70-105 mg/dL Total Calcium 7.8 L 8.5-10.1 mg/dL Phosphorus Level 2.0 L 2.5-4.9 mg/dL Magnesium Level 1.50 L 1.80-2.40 mg/dL Iron Level 40 #L 50-170 mcg/dL Total Iron Binding Capacity 167 L 250-450 mcg/dL Percent Iron Saturation 23.9 22-44 % Vitamin B12 Level 2159 H 193-986 pg/mL Folic Acid (LAB) > 20.00 H 2-20 ng/mL Immature Granulocyte % (Auto) 0.6 0-1 % Neutrophils (%) (Auto) 59.8 40.0-77.0 % Lymphocytes (%) (Auto) 23.6 21.0-51.0 % Monocytes (%) (Auto) 10.4 3.0-13.0 % Eosinophils (%) (Auto) 4.8 0.0-8.0 % Basophils (%) (Auto) 0.8 0.0-5.0 % Neutrophils # (Auto) 2.1 1.8-7.7 K/uL Lymphocytes # (Auto) 0.8 L 1.0-4.8 K/uL Monocytes # (Auto) 0.4 0.1-1.0 K/uL Eosinophils # (Auto) 0.17 0.00-0.70 K/uL Basophils # (Auto) 0.03 0.00-0.20 K/uL Absolute Immature Granulocyte (auto 0.02 0-1 K/uL C-Reactive Protein, Quantitative 23.20 H 0.5-3.0 mg/L Albumin 2.1 L 3.5-5.0 g/dL Current Medications Medications (Trade) Dose Ordered Sig/Gregory Route PRN Reason Start Time Stop Time Status Last Admin Dose Admin Albumin Human 50 ml @ 0 mls/hr AD IV 10/09/25 17:00 10/19/25 16:59 10/09/25 21:30 50 MLS/HR Ceftriaxone Sodium 1 gm/ Sodium Chloride 50 ml @ 100 mls/hr Q24H IV 10/08/25 09:00 10/07/25 23:39 DC Ceftriaxone Sodium (ROCEphine 1G INJ) 1 gm Q24H IVPB 10/07/25 23:45 10/17/25 23:44 10/11/25 01:14 1 GM Dextrose (D50w) 50 ml AD PRN IV HYPOGLYCEMIA PROTOCOL 10/07/25 23:30 10/11/25 11:30 DC 10/11/25 05:19 50 ML Dicyclomine HCl (Bentyl 20mg Tab) 10 mg Q6H6 PO 10/08/25 12:00 11/07/25 11:59 10/11/25 05:19 10 MG Duloxetine HCl (CymbALTA 30 mg CAP) 20 mg BID PO 10/08/25 21:00 10/08/25 21:25 DC Duloxetine HCl (CymbALTA 30 mg CAP) 30 mg BID PO 10/08/25 22:00 11/07/25 21:59 10/10/25 20:30 30 MG Folic Acid (FOLic ACID 1 MG TABLET) 1 mg DAILY PO 10/09/25 09:00 11/08/25 08:59 10/09/25 09:54 1 MG Furosemide (LASix 40MG VIAL) 40 mg DAILY IV 10/09/25 09:00 11/08/25 08:59 10/11/25 09:54 40 MG Glucagon (Glucagon 1mg Kit) 1 mg AD PRN IM HYPOGLYCEMIA PROTOCOL 10/07/25 23:30 11/06/25 23:29 Insulin Human Regular (humuLIN R 100 UNIT/ML 3ML) INSULIN SLIDING SCAL... ACHS SQ 10/08/25 07:30 11/07/25 07:29 Lactated Ringer's 1,000 ml @ 50 mls/hr Q20H IV 10/07/25 23:30 10/08/25 10:45 DC 10/08/25 01:34 50 MLS/HR Magnesium Sulfate 50 ml @ 0 mls/hr PROTOCOL PRN IV MAG LEVEL BELOW 2.0 10/10/25 10:00 11/09/25 09:59 10/11/25 06:16 25 MLS/HR Metronidazole/ Sodium Chloride 100 ml @ 100 mls/hr Q8H IVPB 10/10/25 22:00 10/20/25 21:59 10/11/25 14:47 100 MLS/HR Midodrine (PROAMatine 5 MG TABLET) 10 mg Q8H PO 10/08/25 11:30 11/07/25 11:29 10/10/25 03:01 10 MG Morphine Sulfate (morPHINE 2MG SYG) 2 mg Q4H PRN IV SEVERE PAIN (7-10) 10/07/25 23:30 10/14/25 23:29 10/10/25 14:55 2 MG Ondansetron HCl (zoFRAN 4MG INJ) 4 mg Q6H PRN IV NAUSEA/VOMITING 10/07/25 23:30 11/06/25 23:29 10/10/25 17:02 4 MG Pantoprazole Sodium (PROTonix 40MG INJ) 40 mg DAILY IVP 10/08/25 09:00 11/07/25 08:59 10/11/25 09:53 40 MG Pharmacy Profile Note (Lace Assessment) 1 each AD MISC 10/08/25 10:30 10/08/25 10:33 DC Potassium Phos/ Sodium Phos (PHOS-NaK PACKET 1 EACH) 1 packet TID PO 10/09/25 21:00 10/11/25 11:30 DC 10/10/25 20:31 1 PACKET Pregabalin (LYRica 25MG) 25 mg DAILYDINNER PO 10/08/25 17:00 11/07/25 16:59 10/11/25 16:53 25 MG Quetiapine Fumarate (SEROquel 25 mg TAB) 25 mg HS PO 10/08/25 21:00 11/07/25 20:59 10/10/25 20:31 25 MG Sodium Bicarbonate (Sodium Bicarbonate) 1,300 mg QID PO 10/08/25 13:00 11/07/25 12:59 10/11/25 16:53 1,300 MG Spironolactone (Aldactone 25mg) 25 mg DAILY PO 10/09/25 09:00 11/08/25 08:59 10/09/25 09:54 25 MG Vitamin B Complex (Vitamin B-12) 1,000 mcg DAILY PO 10/09/25 09:00 11/08/25 08:59 10/09/25 09:55 1,000 MCG DIAGNOSTICS / RADIOLOGY: [ ] ASSESSMENT: Acute abdominal pain POA Severe volume overload with worsening ascites per CT POA Mesenteric fat stranding likely inflammatory/ edematous process per CT POA Ileus post abdominal surgery POA Low hemoglobin Hypophosphatemia Hyomagnesemia Ileostomy status POA Protein calorie malnutrition POA Moderate bilateral pleural effusion CP POA Chronic anemia POA Diabetes POA PLAN: Acute abdominal pain -patient currently on clear liquid diet. We will advance her diet as she tolerated. -procalcitonin less than 0.05, CRP 40.10. -Patient is on Rocephin (day 5) for empiric coverage. -Pregabalin has been added to the patients pain regimen. -surgery recommended to get HIDA scan and it showed acute cholecystitis. -surgery recommended cholecystectomy on Saturday. -So we will hold the lasix tomorrow. Severe volume overload with worsening ascites -Lasix 40 mg IV daily -25 mg Aldactone daily -Interventional radiology has been consulted for possible paracentesis. -She underwent paracentesis today and they removed 1 litre of fluid. They sent the ascitic fluid for analysis and it is normal. -surgery recommended cholecystectomy on Saturday. So we will hold the lasix tomorrow. Ileus post abdominal surgery -CT abdomen revealed mildly distended small bowel loops without transition point, likely ileus/enteritis. -surgery is on board. -we will correct her electrolytes. Low hemoglobin - Today her hemoglobin is 8.2, MCV is 101.2, RDW is 18.1. -iron 40, TIBC is 167 -We will continue to monitor her labs. Hypophosphatemia -phosphorus 2.0. -As she is NPO we changed Phos Nak packet to potassium phosphate IV. - We will repeat his labs tomorrow. Hyomagnesemia - Today her magnesium level is 1.7. -We replaced it by giving magnesium sulfate. -We will repeat her labs tomorrow. MDD POA Anxiety POA -tele psych was consulted. Recommended to start her on Cymbalta 20 mg b.i.d. and Seroquel 25 mg q.h.s.. Ileostomy status POA -Output form the ileostomy is 150 ml today. We gave her 1 bag of PPN and general surgery started her on regular diet. Protonix daily for GI prophylaxis SCD's for DVT prophylaxis Home medications have been reconciled. ATTESTATION BY PHYSICIAN I have seen and examined the patient. I reviewed the documentation, medical decision making, and treatment plan as noted by the resident physician above. I agree with the findings and plan of care. AYAKA BARR MD, AKSHAY MD Oct 11, 2025 17:55
[2025-10-11 18:36] LABS: BF LYMPHOCYTE 10 %; BF MACROPHAGE 47; BF NEUTROPHIL 42.0 %; BF OTHER CELLS 1; BF TOTAL CELLS COUNTED 100
--- NOTE | 2025-10-11 19:34 | PN ---
GASTROENTEROLOGY PROGRESS NOTE Date of Visit: Oct 11, 2025 Time of Visit: 19:34 Events / Notes: this is a 55-year-old female who is known to services with past medical history of diabetes, cirrhosis, esophageal varices, DVT, gastritis, peritonitis with robotic sigmoid resection with takedown of colovesical fistula and ileostomy who presented due to abdominal pain and distention. She has been having frequent readmissions. She was recently admitted with concern for GI bleed and ostomy however no stigmata of bleeding from esophageal varices. Review of Systems: CONSTITUTIONAL: No malaise or change in sensation of wellbeing. ENMT: No rhinorrhea, otorrhea, sinus pain, ear ache. CARDIOVASCULAR: No angina, palpitations, orthopnea or paroxysmal dyspnea. RESPIRATORY: No SOB. GASTROINTESTINAL: No abdominal pain, nausea, vomiting, diarrhea, hematemesis, melena or change in the patient's habitual bowel movements consistency/number. GENITOURINARY: No dysuria, hematuria or change in bladder continence. MUSCULOSKELETAL: No new muscle pain or decrease in muscular strength. No new joint swelling, redness or tenderness. SKIN: No new rash. Physical Exam: GEN: Awake, alert, oriented in person, time and place, and in no acute distress. HEENT: No sinus tenderness. Tympanic membranes were not examined. No rhinorrhea. Oral pharyngeal mucosa is pink, moist and within normal limits. Neck is supple with no cervical lymphadenopathy, thyromegaly or JVD. CHEST: Inspection, palpation and percussion of the chest were unremarkable. Lung auscultation revealed normal breath sounds bilaterally. CARDIAC: PMI is within normal limits. Heart sounds are regular. Normal S1, S2. No gallop or murmur. ABD: Soft, non-tender and not distended. No peritoneal signs on palpation. No organomegaly. Normal bowel sounds. EXT: No cyanosis or clubbing. No edema. SKIN: Intact. No rashes. JOINTS: No evidence of synovitis or acute arthritis. NEURO: Alert and oriented to name, place and person. Cranial nerve examination is unremarkable. No focal motor deficits. Normal speech. Gait is normal. Strength is normal. Vital Signs (last 8hr) Date Time Temp Pulse Resp B/P (MAP) Pulse Ox O2 Delivery O2 Flow Rate FiO2 10/11/25 16:06 98.4 89 20 116/66 97 Room Air 10/11/25 12:44 98 Room Air* 0 21 10/11/25 11:40 98.1 88 20 116/57 96 Room Air Laboratory: [ ] Laboratory: Test 10/11/25 15:39 10/11/25 13:00 10/11/25 04:48 10/10/25 04:50 Range/Units Whole Blood Glucose 129 #H 70-110 MG/DL Body Fluid Source ASCITES Body Fluid Volume 850 mL Body Fluid Color YELLOW LT YELLOW Body Fluid Supernatant Appearance SLIGHTLY CLOUDY H CLEAR Body Fluid WBC 107 /cu. mm. Body Fluid RBC 816 /cu. mm. Body Fluid Neutrophils 42.0 % Body Fluid Lymphocytes 10 % Body Fluid Macrophages (%) 47 Body Fluid Other Cells (%) 1 White Blood Count 2.9 L 4.8-10.8 K/uL Red Blood Count 2.60 L 4.00-5.50 MIL/uL Hemoglobin 8.2 L 12.0-16.0 g/dL Hematocrit 26.3 L 36-48 % Mean Corpuscular Volume 101.2 H 79-99 fL Mean Corpuscular Hemoglobin 31.5 27.0-33.0 pg Mean Corpuscular Hemoglobin Concent 31.2 L 32.0-36.0 g/dL Red Cell Distribution Width 18.1 H 11.0-15.5 % Platelet Count 108 L 130-400 K/uL Mean Platelet Volume 9.8 7.5-10.5 fL Segmented Neutrophils % 78 H 40-70 % Lymphocytes % (Manual) 18 L 22-44 % Monocytes % (Manual) 3 2-9 % Eosinophils % (Manual) 1 1-6 % Nucleated Red Blood Cells 0.0 0.0-0.19 % Differential Comment MANUAL DIFFERENTIAL White Cell Morphology Comment CONSISTENT W/DIFF Platelet Morphology Comment SLIGHTLY DECREASED Red Blood Cell Morphology POIKILOCYTOSIS 1+ Sodium Level 143 136-145 mmol/L Potassium Level 3.5 3.5-5.1 mmol/L Chloride Level 109 101-111 mmol/L Carbon Dioxide Level 24 21-32 mmol/L Blood Urea Nitrogen 9 7-18 mg/dL Creatinine 0.7 0.5-1.0 mg/dL Glomerular Filtration Rate Calc 101 >90 mL/min Random Glucose 61 L 70-105 mg/dL Total Calcium 7.8 L 8.5-10.1 mg/dL Phosphorus Level 2.0 L 2.5-4.9 mg/dL Magnesium Level 1.50 L 1.80-2.40 mg/dL Iron Level 40 #L 50-170 mcg/dL Total Iron Binding Capacity 167 L 250-450 mcg/dL Percent Iron Saturation 23.9 22-44 % Vitamin B12 Level 2159 H 193-986 pg/mL Folic Acid (LAB) > 20.00 H 2-20 ng/mL Immature Granulocyte % (Auto) 0.6 0-1 % Neutrophils (%) (Auto) 59.8 40.0-77.0 % Lymphocytes (%) (Auto) 23.6 21.0-51.0 % Monocytes (%) (Auto) 10.4 3.0-13.0 % Eosinophils (%) (Auto) 4.8 0.0-8.0 % Basophils (%) (Auto) 0.8 0.0-5.0 % Neutrophils # (Auto) 2.1 1.8-7.7 K/uL Lymphocytes # (Auto) 0.8 L 1.0-4.8 K/uL Monocytes # (Auto) 0.4 0.1-1.0 K/uL Eosinophils # (Auto) 0.17 0.00-0.70 K/uL Basophils # (Auto) 0.03 0.00-0.20 K/uL Absolute Immature Granulocyte (auto 0.02 0-1 K/uL C-Reactive Protein, Quantitative 23.20 H 0.5-3.0 mg/L Albumin 2.1 L 3.5-5.0 g/dL Current Medications Medications (Trade) Dose Ordered Sig/Gregory Route PRN Reason Start Time Stop Time Status Last Admin Dose Admin Albumin Human 50 ml @ 0 mls/hr AD IV 10/09/25 17:00 10/19/25 16:59 10/09/25 21:30 50 MLS/HR Ceftriaxone Sodium 1 gm/ Sodium Chloride 50 ml @ 100 mls/hr Q24H IV 10/08/25 09:00 10/07/25 23:39 DC Ceftriaxone Sodium (ROCEphine 1G INJ) 1 gm Q24H IVPB 10/07/25 23:45 10/17/25 23:44 10/11/25 01:14 1 GM Dextrose (D50w) 50 ml AD PRN IV HYPOGLYCEMIA PROTOCOL 10/07/25 23:30 10/11/25 11:30 DC 10/11/25 05:19 50 ML Dicyclomine HCl (Bentyl 20mg Tab) 10 mg Q6H6 PO 10/08/25 12:00 11/07/25 11:59 10/11/25 18:12 10 MG Duloxetine HCl (CymbALTA 30 mg CAP) 20 mg BID PO 10/08/25 21:00 10/08/25 21:25 DC Duloxetine HCl (CymbALTA 30 mg CAP) 30 mg BID PO 10/08/25 22:00 11/07/25 21:59 10/10/25 20:30 30 MG Folic Acid (FOLic ACID 1 MG TABLET) 1 mg DAILY PO 10/09/25 09:00 11/08/25 08:59 10/09/25 09:54 1 MG Furosemide (LASix 40MG VIAL) 40 mg DAILY IV 10/09/25 09:00 11/08/25 08:59 10/11/25 09:54 40 MG Glucagon (Glucagon 1mg Kit) 1 mg AD PRN IM HYPOGLYCEMIA PROTOCOL 10/07/25 23:30 11/06/25 23:29 Insulin Human Regular (humuLIN R 100 UNIT/ML 3ML) INSULIN SLIDING SCAL... ACHS SQ 10/08/25 07:30 11/07/25 07:29 Lactated Ringer's 1,000 ml @ 50 mls/hr Q20H IV 10/07/25 23:30 10/08/25 10:45 DC 10/08/25 01:34 50 MLS/HR Magnesium Sulfate 50 ml @ 0 mls/hr PROTOCOL PRN IV MAG LEVEL BELOW 2.0 10/10/25 10:00 11/09/25 09:59 10/11/25 06:16 25 MLS/HR Metronidazole/ Sodium Chloride 100 ml @ 100 mls/hr Q8H IVPB 10/10/25 22:00 10/20/25 21:59 10/11/25 14:47 100 MLS/HR Midodrine (PROAMatine 5 MG TABLET) 10 mg Q8H PO 10/08/25 11:30 11/07/25 11:29 10/10/25 03:01 10 MG Morphine Sulfate (morPHINE 2MG SYG) 2 mg Q4H PRN IV SEVERE PAIN (7-10) 10/07/25 23:30 10/14/25 23:29 10/10/25 14:55 2 MG Ondansetron HCl (zoFRAN 4MG INJ) 4 mg Q6H PRN IV NAUSEA/VOMITING 10/07/25 23:30 11/06/25 23:29 10/10/25 17:02 4 MG Pantoprazole Sodium (PROTonix 40MG INJ) 40 mg DAILY IVP 10/08/25 09:00 11/07/25 08:59 10/11/25 09:53 40 MG Pharmacy Profile Note (Lace Assessment) 1 each AD MISC 10/08/25 10:30 10/08/25 10:33 DC Potassium Phos/ Sodium Phos (PHOS-NaK PACKET 1 EACH) 1 packet TID PO 10/09/25 21:00 10/11/25 11:30 DC 10/10/25 20:31 1 PACKET Pregabalin (LYRica 25MG) 25 mg DAILYDINNER PO 10/08/25 17:00 11/07/25 16:59 10/11/25 16:53 25 MG Quetiapine Fumarate (SEROquel 25 mg TAB) 25 mg HS PO 10/08/25 21:00 11/07/25 20:59 10/10/25 20:31 25 MG Sodium Bicarbonate (Sodium Bicarbonate) 1,300 mg QID PO 10/08/25 13:00 11/07/25 12:59 10/11/25 16:53 1,300 MG Spironolactone (Aldactone 25mg) 25 mg DAILY PO 10/09/25 09:00 11/08/25 08:59 10/09/25 09:54 25 MG Vitamin B Complex (Vitamin B-12) 1,000 mcg DAILY PO 10/09/25 09:00 11/08/25 08:59 10/09/25 09:55 1,000 MCG Diagnostics / Radiology: [COPY/PASTE HERE IF NO REPORTS PLEASE DELETE SECTION] Assessment: Cirrhosis DM Ileostomy status Plan: No GI intervention warranted at this time Continue GI prophylaxis Advance diet as tolerated Avoid NSAIDs Antireflux measures Monitor H&H and transfuse as needed Call with questions, concerns or change in clinical status Patient to follow-up at clinic post discharge Thank you for this consult STEPHEN THAO [employer] Oct 11, 2025 19:34
[2025-10-12] VITALS (9 sets, daily range): BP systolic 120–130; BP diastolic 63–73; PULSE 72–82; RESP 16–20; TEMP 98.2–98.9; O2SAT 98–99
[2025-10-12 05:16] LABS: NUCLEATED RED BLOOD CELLS 0.0 % (0.0-0.19); PLATELET COUNT (AUTO) 133.0 K/uL (130-400); RED BLOOD CELL COUNT(AUTO) 2.66 MIL/uL (4.00-5.50); RED CELL DISTRIBUTION WIDTH 17.6 % (11.0-15.5); WHITE BLOOD COUNT (AUTO) 3.1 K/uL (4.8-10.8)
[2025-10-12 05:44] LABS: ASPARTATE AMINOTRANSFERASE 25.0 U/L (10-37); CREATININE 0.7 mg/dL (0.5-1.0); GLOMERULAR FILTR. RATE CALC 101.0 mL/min (>90); GLUCOSE,RANDOM 112.0 mg/dL (70-105); PHOSPHORUS 1.9 mg/dL (2.5-4.9); SODIUM SERUM 141.0 mmol/L (136-145); TOTAL PROTEIN, SERUM 5.3 g/dL (6.0-8.3); UREA NITROGEN, BLOOD 12.0 mg/dL (7-18)
[2025-10-12] MEDS: PoTASSium chl 10% ELIXIR 20MEQ 20 MEQ/15 ML UDCUP PO PRN (06:28)
--- NOTE | 2025-10-12 08:47 | HMCIMG ---
US ABDOMINAL PARACENTESIS IR REASON: ABDOMINAL DISTENTION, PARACETNESIS TECHNIQUE: Paracentesis was performed with ultrasound guidance. The puncture site was selected in the right upper quadrant and overlying skin prepped and draped in a sterile fashion. 1% Xylocaine infiltration was performed. Catheter was placed in the fluid using trocar technique. 1 L were removed. Fluid sample was submitted for laboratory evaluation. The patient showed no evidence of complication during the procedure. She tolerated procedure well. IMPRESSION: 1. Ultrasound-guided paracentesis.
--- NOTE | 2025-10-12 09:44 | PN ---
This is a 55-year-old female concerns of acute cholecystitis Interval history: This 55-year-old female seen in her room resting Ostomy functioning properly Family has decided to move forward with a cholecystectomy at this time No acute events reported Patient tolerating diet Physical exam General: Awake alert and oriented Heart: Regular rate and rhythm} Lungs: Clear to auscultation no distress Abdomen: [Soft, nontender, nondistended repeat functioning ostomy Assessment : This is a 55-year-old female with concerns acute cholecystitis Plan: From surgical standpoint plan will be to take patient to OR for robotic cholecystectomy tomorrow with Dr. Gann Patient to be made NPO at midnight Any anticoagulation to be held at midnight Patient is aware of plan And agrees Dr. Gann to be updated on patient's status Surgical case has been discussed with my supervising physician in the above plan was formulated and agreed upon We appreciate the hospitalist team for us to participate in patient's care. Greater than 45 minutes of time spent patient, reviewing chart, working on documentation Vitals/Labs Vital Signs Date Time Temp Pulse Resp B/P (MAP) Pulse Ox O2 Delivery O2 Flow Rate FiO2 10/12/25 08:18 98 Room Air* 0 21 10/12/25 08:06 98.6 72 18 123/64 Laboratory Tests 10/12/25 04:44 Medications Current Medications Morphine Sulfate 2 mg ONCE ONCE IVP Last administered on 10/07/25at 19:38; Start 10/07/25 at 19:00; Stop 10/07/25 at 19:01; Status DC Ondansetron HCl 4 mg ONCE ONCE IVP Last administered on 10/07/25at 19:38; Start 10/07/25 at 19:00; Stop 10/07/25 at 19:01; Status DC Ceftriaxone Sodium 2 gm ONCE ONCE IVPB Last administered on 10/07/25at 22:55; Start 10/07/25 at 21:30; Stop 10/07/25 at 21:31; Status DC Sodium Chloride 500 ml @ 0 mls/hr ONCE ONCE IV Last administered on 10/07/25at 22:54; Start 10/07/25 at 21:30; Stop 10/07/25 at 21:31; Status DC Metoclopramide HCl 10 mg ONCE ONCE IVP Last administered on 10/07/25at 22:55; Start 10/07/25 at 22:00; Stop 10/07/25 at 22:01; Status DC Ondansetron HCl 4 mg Q6H PRN IV Last administered on 10/12/25at 07:26; Start 10/07/25 at 23:30; Stop 11/06/25 at 23:29 Morphine Sulfate 2 mg Q4H PRN IV Last administered on 10/11/25at 22:27; Start 10/07/25 at 23:30; Stop 10/14/25 at 23:29 Ceftriaxone Sodium 1 gm/ Sodium Chloride 50 ml @ 100 mls/hr Q24H IV; Start 10/08/25 at 09:00; Stop 10/07/25 at 23:39; Status DC Pantoprazole Sodium 40 mg DAILY IVP Last administered on 10/12/25at 09:22; Start 10/08/25 at 09:00; Stop 11/07/25 at 08:59 Insulin Human Regular INSULIN SLIDING SCAL... ACHS SQ; Start 10/08/25 at 07:30; Stop 11/07/25 at 07:29 Dextrose 50 ml AD PRN IV Last administered on 10/11/25at 05:19; Start 10/07/25 at 23:30; Stop 10/11/25 at 11:30; Status DC Glucagon 1 mg AD PRN IM; Start 10/07/25 at 23:30; Stop 11/06/25 at 23:29 Lactated Ringer's 1,000 ml @ 50 mls/hr Q20H IV Last administered on 10/08/25at 01:34; Start 10/07/25 at 23:30; Stop 10/08/25 at 10:45; Status DC Ceftriaxone Sodium 1 gm Q24H IVPB Last administered on 10/11/25at 23:53; Start 10/07/25 at 23:45; Stop 10/17/25 at 23:44 Pharmacy Profile Note 1 each AD MISC; Start 10/08/25 at 10:30; Stop 10/08/25 at 10:33; Status DC Vitamin B Complex 1,000 mcg DAILY PO Last administered on 10/12/25at 09:22; Start 10/09/25 at 09:00; Stop 11/08/25 at 08:59 Dicyclomine HCl 10 mg Q6H6 PO Last administered on 10/12/25at 05:20; Start 10/08/25 at 12:00; Stop 11/07/25 at 11:59 Folic Acid 1 mg DAILY PO Last administered on 10/12/25at 09:22; Start 10/09/25 at 09:00; Stop 11/08/25 at 08:59 Quetiapine Fumarate 25 mg HS PO Last administered on 10/11/25at 21:25; Start 10/08/25 at 21:00; Stop 11/07/25 at 20:59 Sodium Bicarbonate 1,300 mg QID PO Last administered on 10/12/25at 09:22; Start 10/08/25 at 13:00; Stop 11/07/25 at 12:59 Midodrine 10 mg Q8H PO Last administered on 10/12/25at 03:03; Start 10/08/25 at 11:30; Stop 11/07/25 at 11:29 Pregabalin 25 mg DAILYDINNER PO Last administered on 10/11/25at 16:53; Start 10/08/25 at 17:00; Stop 11/07/25 at 16:59 Furosemide 40 mg DAILY IV Last administered on 10/12/25at 09:22; Start 10/09/25 at 09:00; Stop 11/08/25 at 08:59 Spironolactone 25 mg DAILY PO Last administered on 10/12/25at 09:22; Start 10/09/25 at 09:00; Stop 11/08/25 at 08:59 Duloxetine HCl 20 mg BID PO; Start 10/08/25 at 21:00; Stop 10/08/25 at 21:25; Status DC Duloxetine HCl 30 mg BID PO Last administered on 10/12/25at 09:22; Start 10/08/25 at 22:00; Stop 11/07/25 at 21:59 Potassium Phos/ Sodium Phos 1 packet TID PO Last administered on 10/10/25at 20:31; Start 10/09/25 at 21:00; Stop 10/11/25 at 11:30; Status DC Potassium Phosphate 250 ml @ 42 mls/hr PROTOCOL ONCE IV Last administered on 10/09/25at 22:28; Start 10/09/25 at 16:30; Stop 10/09/25 at 22:27; Status DC Albumin Human 50 ml @ 0 mls/hr AD IV Last administered on 10/09/25at 21:30; Start 10/09/25 at 17:00; Stop 10/19/25 at 16:59 Magnesium Sulfate 50 ml @ 0 mls/hr PROTOCOL PRN IV Last administered on 10/11/25at 06:16; Start 10/10/25 at 10:00; Stop 11/09/25 at 09:59 Metronidazole/ Sodium Chloride 100 ml @ 100 mls/hr Q8H IVPB Last administered on 10/12/25at 05:20; Start 10/10/25 at 22:00; Stop 10/20/25 at 21:59 Potassium Phosphate 250 ml @ 42 mls/hr PROTOCOL ONCE IV; Start 10/11/25 at 11:30; Stop 10/11/25 at 17:27; Status DC Multivitamins/ Minerals 10 ml/ Chromium/Copper/ Manganese/Zinc 3 ml/Amino Acids/ Electrolytes/ Dextrose 2,000 ml @ 60 mls/hr ONCE ONCE IV Last administered on 10/11/25at 12:30; Start 10/11/25 at 12:30; Stop 10/12/25 at 21:49 Potassium Chloride 100 ml @ 100 mls/hr AD PRN IV; Start 10/12/25 at 01:00; Stop 11/11/25 at 00:59 Potassium Chloride 20 meq AD PRN PO Last administered on 10/12/25at 06:34; Start 10/12/25 at 01:00; Stop 11/11/25 at 00:59 Potassium Chloride 20 meq AD PRN PO; Start 10/12/25 at 01:00; Stop 11/11/25 at 00:59 BENEDICTO OBRIEN Jr. PAC Oct 12, 2025 09:44
[2025-10-12] MEDS: SODIUM BICARBONATE 650 MG TAB PO SCH (15:29)
--- NOTE | 2025-10-12 16:28 | PN ---
[facility] PROGRESS NOTE Date of Service: Oct 12, 2025 Time of Service: 16:03 SUBJECTIVE: This is a 55 year old female Diabetes, liver cirrhosis, esophageal varices, DVT, perisplenic abscess, acute gastritis, peritonitis with ESBL and E coli infection septic shock with a past surgical history of cholecystectomy, robotic sigmoid resection with takedown of colovesical fistula with a recent perforation of colonic anastomosis , diagnostic laparoscopy ,drain placement,abdominal wash out and creation of diverting loop ileostomy who was brought by EMS to the ED for complaints of abdominal pain and abdominal distention.Patient reports she was discharged yesterday from this facility even if she was not feeling well because she continues to have abdominal pain and distention she said and daughter was at bedside saying patient weighs 124 kg on admission and she was discharged home weighing 140 kgs and has been telling riri CERVANTES that patient is retaining fluids but still discharged her anyway she said.Patient states while at home she was unable to keep anything down because every time she eats her abdomen hurts and she became nauseated. Seen and examined patient in the ER awake,alert and coherent,patient appears uncomfortable and crying.Patient has diffuse abdominal tenderness on palpation.Patient has an Ileostomy which is patent and normally functioning.Patient denies fever,chills,vomiting,chest pain,palpitation and cough.Patient states she has occasional shortness of breath.Latest V/S latest vital signs temperature 99, heart rate 98, blood pressure 106/61 saturation 100% on room air. Labs: WBC 5.6, neutrophils 72, hemoglobin 9, hematocrit 29 and platelet count 137. Lactic acid 2.0, glucose 129, total calcium 7.7 albumin 2.2 nine the rest of the chemistries normal. Chest x-ray result revealed no acute cardiopulmonary pathology is evident. CT abdomen without contrast result revealed markedly progressed gross ascites and mesenteric fat stranding with generalized anasarca, concerning for worsening fluid overload. Moderate bilateral pleural effusions. Nodular hepatic margins consistent with cirrhotic changes stable. Distended small bowel loops without transition point likely ileus/enteritis new from prior. Calcified gallbladder wall stable. Post Ileostomy status. Stable scattered colonic diverticulosis. Small hiatus hernia stable removal of pigtail catheter from sub splenic collection with resultant mild peritoneal thickening. No acute intra-abdominal abnormality otherwise. While in the ER patient received morphine 2 mg IV, Zofran 4 mg IV Rocephin 2 g IV NS 500 IV bolus and Reglan 10 mg IV.Patient is pending for NGT insertion.Er called and recommended to admit the patient. 10/08/2025: Patient was seen and examined this morning at bedside. The patient is accompanied by her daughter. The patient is on NG tube, which has very minimal output. The patient appears uncomfortable with the NG tube, and complains that it is bothering her and causing her pain. The patients daughter states the patient is not regularly using the restroom to urinate. The patient reports she believes she is retaining urine. We will order a bladder scan and follow up with the results. The patients abdomen appears distended upon physical examination. Patient reports tenderness bilaterally in the flank regions. Bowel sounds were hypoactive upon auscultation. No peripheral edema is noted. Heart sounds are h eard, no murmurs appreciated. Interventional radiology has been called for possible paracentesis due to the patients ascites. The patient will be started on daily IV Lasix and Aldactone. We will continue to monitor her electrolytes daily, and correct accordingly. Pregabalin has been added to her pain regimen. The patient denies chest pain, shortness of breath, nausea, vomiting, fever, chills. 10/09/2025: She was evaluated at the bedside this morning. No overnight event. She is AAO x3. She do complain of mild abdominal discomfort on the right and left upper abdomen. She is hemodynamically stable. NG tube was taken out and started on clear liquid diet. Labs remarkable for WBC 3.2, hemoglobin 8.4, platelet 116, phosphorus 1.9, CRP 40.1, bicarbonate 2. 24 hour blood culture negative. She is on [id number] mg, furosemide 40 mg IV, duloxetine, quetiapine, pregabalin, sodium bicarbonate, midodrine, pantoprazole, Rocephin and PRN pain med. She do have a large ascites. Plan is to get ascitic tapping for both therapeutic and diagnostic. Surgery recommended to get HIDA scan for the possible recurrent acute cholecystitis. Psychiatry recommended to restart her on Cymbalta and Seroquel. For her hypo phosphatase Kaity, we have started her on Neutra-Phos times a day and give 1 dose of IV [id number] millimole. GI on the board. Rest of the plan as discussed below. 10/10/2025: Patient is seen and evaluated in the room 306. She do complain of mild abdominal discomfort on the right and left upper abdomen. Her vitals are in the normal range. Her labs are in the normal range except for hemoglobin is 8.1, magnesium is 1.7. She had her HIDA scan done today and it showed acute cholecystitis. As her magnesium is low we replaced it. She is supposed to undergo paracentesis tomorrow. 10/11/2025: Patient is seen and evaluated in the room 306. She complained of mild abdominal pain. Her vitals are in the normal range. Her labs are normal except for hemoglobin is 8.2, WBC is 2.9, MCV is 101.2, RDW is 18.1, platelet is 108, magnesium is 1.5, phosphorus is 2, iron is 40, TIBC is 167,% saturation is 23.9. We gave her PPN. She underwent paracentesis today and they removed 1litre of fluid and they sent it for analysis and it is negative. Her blood culture is negative. Gram stain of ascitic fluid no organisms are seen. We stopped Phos Nak packet to IV potassium phosphate. We will repeat the phosphorus tomorrow. She is started on regular diet. General surgery recommended cholecystectomy on Saturday. So we will hold the lasix tomorrow. 10/12/2025: Patient is seen and evaluated in the room 306. She has no symptoms today. Her vitals are in the normal range. She is able to tolerate her diet. Her labs are normal except for hemoglobin 8.6, MCV is 100.4, RDW is 17.6, potassium is 3.1, glucose is 177. Her phosphorus is 1.9 So we added potassium phosphate 1 dose and we restarted Phos-Nak packet. As she is having surgery tomorrow we stopped her lasix and aldactone. We also reduced the dose of bicarbonate to QID to TID. REVIEW OF SYSTEMS CONSTITUTIONAL: Denies fevers, chills, or night sweats. No unintentional weight loss reported. NEUROLOGICAL: Denies headache, amaurosis fugax, motor weakness, sensory deficit, vertigo/spinning sensation, gait abnormalities, or tremors. ENT: No hearing loss, otalgia, otorrhea, rhinitis, rhinorrhea, hoarseness, or sore throat. CARDIOVASCULAR: Denies any exertional angina, dyspnea on exertion, orthopnea, paroxysmal nocturnal dyspnea, palpitations, life-threatening arrhythmias, claudication. PULMONARY: Denies any shortness of breath, cough, phlegm/sputum, hemoptysis, pleuritic chest pain. SLEEP: Denies morning headaches, daytime somnolence or napping. Denies difficulty falling asleep, staying asleep, waking from sleep. Denies knowledge of snoring. GASTROINTESTINAL: Complains of abdominal distention, and abdominal pain. Denies any type of dysphagia to either liquids or solids. Denies vomiting, pyrosis, early satiety, diarrhea, constipation, or changes in stool consistency or caliber. Denies coffee-ground emesis, hematemesis, hematochezia, or melanotic stools. GENITOURINARY: Denies frequency, urgency, nocturia, hematuria or incontinence (Storage/Irritative symptoms.) Low urinary stream, straining to void, urinary intermittency or hesitancy, splitting of the voiding stream, terminal dribbling. ENDOCRINOLOGIC: Denies polyuria, polydipsia, polyphagia or heat/cold intolerances. HEMATOLOGIC: Denies thrombophilia/previous clots, or coagulopathy/bleeding disorders. ONCOLOGIC: Denies personal history of malignancy. DERMATOLOGIC: Denies rashes or pruritus. PSYCHIATRIC: Denies any suicidal or homicidal ideation. Denies hallucinations. PHYSICAL EXAM GENERAL APPEARANCE: The patient is awake, alert, and oriented, in no acute cardiopulmonary distress. NEUROLOGICAL: Cranial nerves II-XII grossly intact. Motor is 5/5 in bilateral upper and lower extremities proximal to distal. No sensory deficits. HEENT: Face is symmetric. Pupils are equal and reactive. Extraocular movements are intact. NECK: Supple. No JVD. No thyromegaly. No submental, submandibular, pre- /postauricular, occipital or supraclavicular lymphadenopathy. CHEST: Normal chest expansion. No Telemetry. LUNGS: Absence of any rales, rhonchi or any wheezing. CARDIOVASCULAR: Regular. S1 and S2 normal. No appreciable rubs, murmurs or gallops. ABDOMEN: Positive hypoactive bowel sounds, diffuse tenderness x4 abdominal quadrants patient+ Ileostomy Soft and distended .There is no rebound, voluntary guarding, or rigidity. : Deferred. No Dueñas. EXTREMITIES: Non-edematous and not cyanotic. No clubbing. Good capillary refill. SKIN: No skin breakdown. Vital Signs (last 8hr) Date Time Temp Pulse Resp B/P (MAP) Pulse Ox O2 Delivery O2 Flow Rate FiO2 10/12/25 15:53 98.8 80 20 129/66 100 Room Air 10/12/25 12:00 99.0 76 18 130/73 99 Room Air 10/12/25 08:18 98 Room Air* 0 21 10/12/25 08:06 98.6 72 18 123/64 98 Room Air LABS: Laboratory: Test 10/12/25 15:34 10/12/25 04:44 10/11/25 13:00 10/11/25 04:48 Range/Units Whole Blood Glucose 177 H 70-110 MG/DL White Blood Count 3.1 L 4.8-10.8 K/uL Red Blood Count 2.66 L 4.00-5.50 MIL/uL Hemoglobin 8.6 L 12.0-16.0 g/dL Hematocrit 26.7 L 36-48 % Mean Corpuscular Volume 100.4 H 79-99 fL Mean Corpuscular Hemoglobin 32.3 27.0-33.0 pg Mean Corpuscular Hemoglobin Concent 32.2 32.0-36.0 g/dL Red Cell Distribution Width 17.6 H 11.0-15.5 % Platelet Count 133 130-400 K/uL Mean Platelet Volume 9.8 7.5-10.5 fL Nucleated Red Blood Cells 0.0 0.0-0.19 % Sodium Level 141 136-145 mmol/L Potassium Level 3.1 L 3.5-5.1 mmol/L Chloride Level 108 101-111 mmol/L Carbon Dioxide Level 25 21-32 mmol/L Blood Urea Nitrogen 12 7-18 mg/dL Creatinine 0.7 0.5-1.0 mg/dL Glomerular Filtration Rate Calc 101 >90 mL/min Random Glucose 112 #H 70-105 mg/dL Total Calcium 7.7 L 8.5-10.1 mg/dL Phosphorus Level 1.9 L 2.5-4.9 mg/dL Magnesium Level 2.00 1.80-2.40 mg/dL Total Bilirubin 0.3 0.2-1.0 mg/dL Direct Bilirubin 0.1 0.0-0.3 mg/dL Aspartate Amino Transf (AST/SGOT) 25 10-37 U/L Alanine Aminotransferase (ALT/SGPT) 16 12-78 U/L Alkaline Phosphatase 71 50-136 U/L Total Protein 5.3 L 6.0-8.3 g/dL Albumin 1.9 L 3.5-5.0 g/dL Body Fluid Source ASCITES Body Fluid Volume 850 mL Body Fluid Color YELLOW LT YELLOW Body Fluid Supernatant Appearance SLIGHTLY CLOUDY H CLEAR Body Fluid WBC 107 /cu. mm. Body Fluid RBC 816 /cu. mm. Body Fluid Neutrophils 42.0 % Body Fluid Lymphocytes 10 % Body Fluid Macrophages (%) 47 Body Fluid Other Cells (%) 1 Segmented Neutrophils % 78 H 40-70 % Lymphocytes % (Manual) 18 L 22-44 % Monocytes % (Manual) 3 2-9 % Eosinophils % (Manual) 1 1-6 % Differential Comment MANUAL DIFFERENTIAL White Cell Morphology Comment CONSISTENT W/DIFF Platelet Morphology Comment SLIGHTLY DECREASED Red Blood Cell Morphology POIKILOCYTOSIS 1+ Iron Level 40 #L 50-170 mcg/dL Total Iron Binding Capacity 167 L 250-450 mcg/dL Percent Iron Saturation 23.9 22-44 % Vitamin B12 Level 2159 H 193-986 pg/mL Folic Acid (LAB) > 20.00 H 2-20 ng/mL Current Medications Medications (Trade) Dose Ordered Sig/Gregory Route PRN Reason Start Time Stop Time Status Last Admin Dose Admin Albumin Human 50 ml @ 0 mls/hr AD IV 10/09/25 17:00 10/12/25 13:28 DC 10/09/25 21:30 50 MLS/HR Ceftriaxone Sodium 1 gm/ Sodium Chloride 50 ml @ 100 mls/hr Q24H IV 10/08/25 09:00 10/07/25 23:39 DC Ceftriaxone Sodium (ROCEphine 1G INJ) 1 gm Q24H IVPB 10/07/25 23:45 10/17/25 23:44 10/11/25 23:53 1 GM Dextrose (D50w) 50 ml AD PRN IV HYPOGLYCEMIA PROTOCOL 10/07/25 23:30 10/11/25 11:30 DC 10/11/25 05:19 50 ML Dicyclomine HCl (Bentyl 20mg Tab) 10 mg Q6H6 PO 10/08/25 12:00 11/07/25 11:59 12/9/25 15:42 10 MG Duloxetine HCl (CymbALTA 30 mg CAP) 20 mg BID PO 10/08/25 21:00 10/08/25 21:25 DC Duloxetine HCl (CymbALTA 30 mg CAP) 30 mg BID PO 10/08/25 22:00 11/07/25 21:59 10/12/25 09:22 30 MG Folic Acid (FOLic ACID 1 MG TABLET) 1 mg DAILY PO 10/09/25 09:00 11/08/25 08:59 10/12/25 09:22 1 MG Furosemide (LASix 40MG VIAL) 40 mg DAILY IV 10/09/25 09:00 10/12/25 13:27 DC 10/12/25 09:22 40 MG Glucagon (Glucagon 1mg Kit) 1 mg AD PRN IM HYPOGLYCEMIA PROTOCOL 10/07/25 23:30 11/06/25 23:29 Insulin Human Regular (humuLIN R 100 UNIT/ML 3ML) INSULIN SLIDING SCAL... ACHS SQ 10/08/25 07:30 11/07/25 07:29 Lactated Ringer's 1,000 ml @ 50 mls/hr Q20H IV 10/07/25 23:30 10/08/25 10:45 DC 10/08/25 01:34 50 MLS/HR Magnesium Sulfate 50 ml @ 0 mls/hr PROTOCOL PRN IV MAG LEVEL BELOW 2.0 10/10/25 10:00 11/09/25 09:59 10/11/25 06:16 25 MLS/HR Metronidazole/ Sodium Chloride 100 ml @ 100 mls/hr Q8H IVPB 10/10/25 22:00 10/20/25 21:59 10/12/25 15:27 100 MLS/HR Midodrine (PROAMatine 5 MG TABLET) 10 mg Q8H PO 10/08/25 11:30 11/07/25 11:29 10/12/25 12:28 10 MG Morphine Sulfate (morPHINE 2MG SYG) 2 mg Q4H PRN IV SEVERE PAIN (7-10) 10/07/25 23:30 10/14/25 23:29 10/12/25 15:43 2 MG Ondansetron HCl (zoFRAN 4MG INJ) 4 mg Q6H PRN IV NAUSEA/VOMITING 10/07/25 23:30 11/06/25 23:29 10/12/25 07:26 4 MG Pantoprazole Sodium (PROTonix 40MG INJ) 40 mg DAILY IVP 10/08/25 09:00 11/07/25 08:59 10/12/25 09:22 40 MG Pharmacy Profile Note (Lace Assessment) 1 each AD MISC 10/08/25 10:30 10/08/25 10:33 DC Potassium Chloride 100 ml @ 100 mls/hr AD PRN IV POTASSIUM PROTOCOL 10/12/25 01:00 11/11/25 00:59 Potassium Chloride (K-Dur/Klor-Con 20meq) 20 meq AD PRN PO POTASSIUM PROTOCOL 10/12/25 01:00 11/11/25 00:59 Potassium Chloride (KCl 10% Elixir 20meq/15ml) 20 meq AD PRN PO POTASSIUM PROTOCOL 10/12/25 01:00 11/11/25 00:59 10/12/25 06:34 20 MEQ Potassium Phos/ Sodium Phos (PHOS-NaK PACKET 1 EACH) 1 packet TID PO 10/09/25 21:00 10/11/25 11:30 DC 10/10/25 20:31 1 PACKET Potassium Phos/ Sodium Phos (PHOS-NaK PACKET 1 EACH) 1 packet TID PO 10/12/25 21:00 10/14/25 20:59 Pregabalin (LYRica 25MG) 25 mg DAILYDINNER PO 10/08/25 17:00 11/07/25 16:59 10/12/25 15:42 25 MG Quetiapine Fumarate (SEROquel 25 mg TAB) 25 mg HS PO 10/08/25 21:00 11/07/25 20:59 10/11/25 21:25 25 MG Sodium Bicarbonate (Sodium Bicarbonate) 1,300 mg QID PO 10/08/25 13:00 10/12/25 13:26 DC 10/12/25 12:47 1,300 MG Sodium Bicarbonate (Sodium Bicarbonate) 1,300 mg TID PO 10/12/25 14:00 11/07/25 12:59 10/12/25 15:29 1,300 MG Spironolactone (Aldactone 25mg) 25 mg DAILY PO 10/09/25 09:00 10/12/25 13:28 DC 10/12/25 09:22 25 MG Vitamin B Complex (Vitamin B-12) 1,000 mcg DAILY PO 10/09/25 09:00 11/08/25 08:59 10/12/25 09:22 1,000 [facility] / RADIOLOGY: [facility] [address] [place] [address] IMAGING REPORT Signed PATIENT: DALLAS BUCHANAN MR#: [id number] : 1970 SEX: F AGE: 55 LOCATION: 3BH ORDER 1228 STATUS: ADM IN REPORT#: [id number] SERVICE 1230 REASON: ABDOMINAL DISTENTION, PARACETNESIS ORDERING PHYSICIAN: LISET DOUGLAS MD PROCEDURE: PARA ABD - US ABDOMINAL PARACENTESIS IR US ABDOMINAL PARACENTESIS IR REASON: ABDOMINAL DISTENTION, PARACETNESIS TECHNIQUE: Paracentesis was performed with ultrasound guidance. The puncture site was selected in the right upper quadrant and overlying skin prepped and draped in a sterile fashion. 1% Xylocaine infiltration was performed. Catheter was placed in the fluid using trocar technique. 1 L were removed. Fluid sample was submitted for laboratory evaluation. The patient showed no evidence of complication during the procedure. She tolerated procedure well. IMPRESSION: 1. Ultrasound-guided paracentesis. DICTATED BY: GREER FIORE MD DATE: 10/12/25840 ELECTRONICALLY SIGNED BY: GREER FIORE MD DATE: 10/12/25846 ASSESSMENT: Acute abdominal pain POA Severe volume overload with worsening ascites per CT POA Mesenteric fat stranding likely inflammatory/ edematous process per CT POA Ileus post abdominal surgery POA Low hemoglobin Hypophosphatemia Hyomagnesemia Ileostomy status POA Protein calorie malnutrition POA Moderate bilateral pleural effusion CP POA Chronic anemia POA Diabetes POA PLAN: Acute abdominal pain -patient currently on clear liquid diet. We will advance her diet as she tolerated. -procalcitonin less than 0.05, CRP 40.10. -Patient is on Rocephin (day 6) for empiric coverage. -Pregabalin has been added to the patients pain regimen. -surgery recommended to get HIDA scan and it showed acute cholecystitis. -surgery recommended cholecystectomy tomorrow. -So we held the lasix and aldactone. Severe volume overload with worsening ascites -Lasix 40 mg IV daily -25 mg Aldactone daily -Interventional radiology has been consulted for possible paracentesis. -She underwent paracentesis today and they removed 1 litre of fluid. They sent the ascitic fluid for analysis and it is normal. -surgery recommended cholecystectomy tomorrow. So we held the lasix and aldactone. Ileus post abdominal surgery -CT abdomen revealed mildly distended small bowel loops without transition point, likely ileus/enteritis. -surgery is on board. -we will correct her electrolytes. Low hemoglobin - Today her hemoglobin is 8.6, MCV is 100.4, RDW is 17.6. -iron 40, TIBC is 167 -We will continue to monitor her labs. Hypophosphatemia -phosphorus 2.0. -Today we gave her a dose of potassium phosphate and we started her on Phos-Nak packet. - We will repeat his labs tomorrow. Hyomagnesemia - Today her magnesium level is 2. - She is on Magnesium protocol. -We will repeat her labs tomorrow. MDD POA Anxiety POA -tele psych was consulted. Recommended to start her on Cymbalta 20 mg b.i.d. and Seroquel 25 mg q.h.s.. Ileostomy status POA -Output form the ileostomy is 2080 ml today. We gave her 1 bag of PPN and general surgery started her on regular diet. Protonix daily for GI prophylaxis SCD's for DVT prophylaxis Home medications have been reconciled. ATTESTATION BY PHYSICIAN I have seen and examined the patient. I reviewed the documentation, medical decision making, and treatment plan as noted by the resident physician above. I agree with the findings and plan of care. AYAKA BARR MD, AKSHAY MD Oct 12, 2025 16:28
--- NOTE | 2025-10-12 16:42 | PN ---
GASTROENTEROLOGY PROGRESS NOTE Date of Visit: Oct 12, 2025 Time of Visit: 16:41 Events / Notes: this is a 55-year-old female who is known to services with past medical history of diabetes, cirrhosis, esophageal varices, DVT, gastritis, peritonitis with robotic sigmoid resection with takedown of colovesical fistula and ileostomy who presented due to abdominal pain and distention. She has been having frequent readmissions. She was recently admitted with concern for GI bleed and ostomy however no stigmata of bleeding from esophageal varices. Review of Systems: CONSTITUTIONAL: No malaise or change in sensation of wellbeing. ENMT: No rhinorrhea, otorrhea, sinus pain, ear ache. CARDIOVASCULAR: No angina, palpitations, orthopnea or paroxysmal dyspnea. RESPIRATORY: No SOB. GASTROINTESTINAL: No abdominal pain, nausea, vomiting, diarrhea, hematemesis, melena or change in the patient's habitual bowel movements consistency/number. GENITOURINARY: No dysuria, hematuria or change in bladder continence. MUSCULOSKELETAL: No new muscle pain or decrease in muscular strength. No new joint swelling, redness or tenderness. SKIN: No new rash. Physical Exam: GEN: Awake, alert, oriented in person, time and place, and in no acute distress. HEENT: No sinus tenderness. Tympanic membranes were not examined. No rhinorrhea. Oral pharyngeal mucosa is pink, moist and within normal limits. Neck is supple with no cervical lymphadenopathy, thyromegaly or JVD. CHEST: Inspection, palpation and percussion of the chest were unremarkable. Lung auscultation revealed normal breath sounds bilaterally. CARDIAC: PMI is within normal limits. Heart sounds are regular. Normal S1, S2. No gallop or murmur. ABD: Soft, non-tender and not distended. No peritoneal signs on palpation. No organomegaly. Normal bowel sounds. EXT: No cyanosis or clubbing. No edema. SKIN: Intact. No rashes. JOINTS: No evidence of synovitis or acute arthritis. NEURO: Alert and oriented to name, place and person. Cranial nerve examination is unremarkable. No focal motor deficits. Normal speech. Gait is normal. Strength is normal. Vital Signs (last 8hr) Date Time Temp Pulse Resp B/P (MAP) Pulse Ox O2 Delivery O2 Flow Rate FiO2 10/12/25 15:53 98.8 80 20 129/66 100 Room Air 10/12/25 12:00 99.0 76 18 130/73 99 Room Air Laboratory: [ ] Laboratory: Test 10/12/25 15:34 10/12/25 04:44 10/11/25 13:00 10/11/25 04:48 Range/Units Whole Blood Glucose 177 H 70-110 MG/DL White Blood Count 3.1 L 4.8-10.8 K/uL Red Blood Count 2.66 L 4.00-5.50 MIL/uL Hemoglobin 8.6 L 12.0-16.0 g/dL Hematocrit 26.7 L 36-48 % Mean Corpuscular Volume 100.4 H 79-99 fL Mean Corpuscular Hemoglobin 32.3 27.0-33.0 pg Mean Corpuscular Hemoglobin Concent 32.2 32.0-36.0 g/dL Red Cell Distribution Width 17.6 H 11.0-15.5 % Platelet Count 133 130-400 K/uL Mean Platelet Volume 9.8 7.5-10.5 fL Nucleated Red Blood Cells 0.0 0.0-0.19 % Sodium Level 141 136-145 mmol/L Potassium Level 3.1 L 3.5-5.1 mmol/L Chloride Level 108 101-111 mmol/L Carbon Dioxide Level 25 21-32 mmol/L Blood Urea Nitrogen 12 7-18 mg/dL Creatinine 0.7 0.5-1.0 mg/dL Glomerular Filtration Rate Calc 101 >90 mL/min Random Glucose 112 #H 70-105 mg/dL Total Calcium 7.7 L 8.5-10.1 mg/dL Phosphorus Level 1.9 L 2.5-4.9 mg/dL Magnesium Level 2.00 1.80-2.40 mg/dL Total Bilirubin 0.3 0.2-1.0 mg/dL Direct Bilirubin 0.1 0.0-0.3 mg/dL Aspartate Amino Transf (AST/SGOT) 25 10-37 U/L Alanine Aminotransferase (ALT/SGPT) 16 12-78 U/L Alkaline Phosphatase 71 50-136 U/L Total Protein 5.3 L 6.0-8.3 g/dL Albumin 1.9 L 3.5-5.0 g/dL Body Fluid Source ASCITES Body Fluid Volume 850 mL Body Fluid Color YELLOW LT YELLOW Body Fluid Supernatant Appearance SLIGHTLY CLOUDY H CLEAR Body Fluid WBC 107 /cu. mm. Body Fluid RBC 816 /cu. mm. Body Fluid Neutrophils 42.0 % Body Fluid Lymphocytes 10 % Body Fluid Macrophages (%) 47 Body Fluid Other Cells (%) 1 Segmented Neutrophils % 78 H 40-70 % Lymphocytes % (Manual) 18 L 22-44 % Monocytes % (Manual) 3 2-9 % Eosinophils % (Manual) 1 1-6 % Differential Comment MANUAL DIFFERENTIAL White Cell Morphology Comment CONSISTENT W/DIFF Platelet Morphology Comment SLIGHTLY DECREASED Red Blood Cell Morphology POIKILOCYTOSIS 1+ Iron Level 40 #L 50-170 mcg/dL Total Iron Binding Capacity 167 L 250-450 mcg/dL Percent Iron Saturation 23.9 22-44 % Vitamin B12 Level 2159 H 193-986 pg/mL Folic Acid (LAB) > 20.00 H 2-20 ng/mL Current Medications Medications (Trade) Dose Ordered Sig/Gregory Route PRN Reason Start Time Stop Time Status Last Admin Dose Admin Albumin Human 50 ml @ 0 mls/hr AD IV 10/09/25 17:00 10/12/25 13:28 DC 10/09/25 21:30 50 MLS/HR Ceftriaxone Sodium 1 gm/ Sodium Chloride 50 ml @ 100 mls/hr Q24H IV 10/08/25 09:00 10/07/25 23:39 DC Ceftriaxone Sodium (ROCEphine 1G INJ) 1 gm Q24H IVPB 10/07/25 23:45 10/17/25 23:44 10/11/25 23:53 1 GM Dextrose (D50w) 50 ml AD PRN IV HYPOGLYCEMIA PROTOCOL 10/07/25 23:30 10/11/25 11:30 DC 10/11/25 05:19 50 ML Dicyclomine HCl (Bentyl 20mg Tab) 10 mg Q6H6 PO 10/08/25 12:00 11/07/25 11:59 10/12/25 15:42 10 MG Duloxetine HCl (CymbALTA 30 mg CAP) 20 mg BID PO 10/08/25 21:00 10/08/25 21:25 DC Duloxetine HCl (CymbALTA 30 mg CAP) 30 mg BID PO 10/08/25 22:00 11/07/25 21:59 10/12/25 09:22 30 MG Folic Acid (FOLic ACID 1 MG TABLET) 1 mg DAILY PO 10/09/25 09:00 11/08/25 08:59 12/9/25 09:22 1 MG Furosemide (LASix 40MG VIAL) 40 mg DAILY IV 10/09/25 09:00 10/12/25 13:27 DC 10/12/25 09:22 40 MG Glucagon (Glucagon 1mg Kit) 1 mg AD PRN IM HYPOGLYCEMIA PROTOCOL 10/07/25 23:30 11/06/25 23:29 Insulin Human Regular (humuLIN R 100 UNIT/ML 3ML) INSULIN SLIDING SCAL... ACHS SQ 10/08/25 07:30 11/07/25 07:29 Lactated Ringer's 1,000 ml @ 50 mls/hr Q20H IV 10/07/25 23:30 10/08/25 10:45 DC 10/08/25 01:34 50 MLS/HR Magnesium Sulfate 50 ml @ 0 mls/hr PROTOCOL PRN IV MAG LEVEL BELOW 2.0 10/10/25 10:00 11/09/25 09:59 10/11/25 06:16 25 MLS/HR Metronidazole/ Sodium Chloride 100 ml @ 100 mls/hr Q8H IVPB 10/10/25 22:00 10/20/25 21:59 10/12/25 15:27 100 MLS/HR Midodrine (PROAMatine 5 MG TABLET) 10 mg Q8H PO 10/08/25 11:30 11/07/25 11:29 10/12/25 12:28 10 MG Morphine Sulfate (morPHINE 2MG SYG) 2 mg Q4H PRN IV SEVERE PAIN (7-10) 10/07/25 23:30 10/14/25 23:29 10/12/25 15:43 2 MG Ondansetron HCl (zoFRAN 4MG INJ) 4 mg Q6H PRN IV NAUSEA/VOMITING 10/07/25 23:30 11/06/25 23:29 10/12/25 07:26 4 MG Pantoprazole Sodium (PROTonix 40MG INJ) 40 mg DAILY IVP 10/08/25 09:00 11/07/25 08:59 10/12/25 09:22 40 MG Pharmacy Profile Note (Lace Assessment) 1 each AD MISC 10/08/25 10:30 10/08/25 10:33 DC Potassium Chloride 100 ml @ 100 mls/hr AD PRN IV POTASSIUM PROTOCOL 10/12/25 01:00 11/11/25 00:59 Potassium Chloride (K-Dur/Klor-Con 20meq) 20 meq AD PRN PO POTASSIUM PROTOCOL 10/12/25 01:00 11/11/25 00:59 Potassium Chloride (KCl 10% Elixir 20meq/15ml) 20 meq AD PRN PO POTASSIUM PROTOCOL 10/12/25 01:00 11/11/25 00:59 10/12/25 06:34 20 MEQ Potassium Phos/ Sodium Phos (PHOS-NaK PACKET 1 EACH) 1 packet TID PO 10/09/25 21:00 10/11/25 11:30 DC 10/10/25 20:31 1 PACKET Potassium Phos/ Sodium Phos (PHOS-NaK PACKET 1 EACH) 1 packet TID PO 10/12/25 21:00 10/14/25 20:59 Pregabalin (LYRica 25MG) 25 mg DAILYDINNER PO 10/08/25 17:00 11/07/25 16:59 10/12/25 15:42 25 MG Quetiapine Fumarate (SEROquel 25 mg TAB) 25 mg HS PO 10/08/25 21:00 11/07/25 20:59 10/11/25 21:25 25 MG Sodium Bicarbonate (Sodium Bicarbonate) 1,300 mg QID PO 10/08/25 13:00 10/12/25 13:26 DC 10/12/25 12:47 1,300 MG Sodium Bicarbonate (Sodium Bicarbonate) 1,300 mg TID PO 10/12/25 14:00 11/07/25 12:59 10/12/25 15:29 1,300 MG Spironolactone (Aldactone 25mg) 25 mg DAILY PO 10/09/25 09:00 10/12/25 13:28 DC 10/12/25 09:22 25 MG Vitamin B Complex (Vitamin B-12) 1,000 mcg DAILY PO 10/09/25 09:00 11/08/25 08:59 10/12/25 09:22 1,000 MCG Diagnostics / Radiology: [COPY/PASTE HERE IF NO REPORTS PLEASE DELETE SECTION] Assessment: Cirrhosis DM Ileostomy status Plan: No GI intervention warranted at this time Continue GI prophylaxis Advance diet as tolerated Avoid NSAIDs Antireflux measures Monitor H&H and transfuse as needed Call with questions, concerns or change in clinical status Patient to follow-up at clinic post discharge Thank you for this consult STEPHEN THAO LABELLING MACHINE OPERATOR Oct 12, 2025 16:42
[2025-10-12] MEDS: PoTASSium chloRIDE 20MEQ ER 20 MEQ ERTAB PO PRN (22:32)
[2025-10-13] VITALS (16 sets, daily range): BP systolic 114–139; BP diastolic 58–81; PULSE 79–92; RESP 16–20; TEMP 97.3–98.2; O2SAT 99
[2025-10-13 04:52] LABS: NUCLEATED RED BLOOD CELLS 0.0 % (0.0-0.19); PLATELET COUNT (AUTO) 147.0 K/uL (130-400); RED BLOOD CELL COUNT(AUTO) 3.08 MIL/uL (4.00-5.50); RED CELL DISTRIBUTION WIDTH 17.1 % (11.0-15.5); WHITE BLOOD COUNT (AUTO) 4.5 K/uL (4.8-10.8)
[2025-10-13 05:09] LABS: CREATININE 0.8 mg/dL (0.5-1.0); GLOMERULAR FILTR. RATE CALC 86.0 mL/min (>90); GLUCOSE,RANDOM 92.0 mg/dL (70-105); PHOSPHORUS 1.6 mg/dL (2.5-4.9); SODIUM SERUM 136.0 mmol/L (136-145); UREA NITROGEN, BLOOD 11.0 mg/dL (7-18)
--- NOTE | 2025-10-13 11:00 | NUR ---
Patient was transport at this time for surgery. Stable no concerns at this time
[2025-10-13] MEDS: [UNRECOGNIZED DRUG - OTHER] IV ONE (11:01)
[2025-10-13] MEDS: NS IV ONE (11:01)
[2025-10-13] MEDS: INDOCYANINE GREEN 25 MG VIAL IJ ONE ×2 (11:43→12:05)
[2025-10-13] MEDS ORDERED: MIDAZOLAM HCL 1 MG/ML 2ML VIAL ONE (12:01)
[2025-10-13] MEDS ORDERED: ALBUMIN (HUMAN) 5% 250 ML IV ONE (13:18)
[2025-10-13] MEDS: PHYTONADIONE 10 MG in 0.9%NACL 50ML 50 ML IVPB ONE (13:30)
[2025-10-13] MEDS: SUGAMMADEX SODIUM 200 MG/2 ML VIAL IV ONE (13:47)
--- NOTE | 2025-10-13 13:54 | OP ---
Operative Note: DATE OF PROCEDURE: 10/13/25 SURGEON: SUSAN JHAVERI MD PROCEDURE PERFORMED: Robotic cholecystectomy. PREOPERATIVE DIAGNOSIS: Acute cholecystitis POSTOPERATIVE DIAGNOSIS: same ANESTHESIA: General endotracheal. SURGEON: Susan Jhaveri MD DEVICE LEFT IN PLACE: None. FLUIDS AND BLOOD PRODUCTS: Vitamin K 10 mg, albumin SPECIMENS REMOVED: Gallbladder. COMPLICATIONS: None immediate. PATIENT CONDITION: Stable. Blood loss: 20 cc, aspirated 1 L of ascites fluid DESCRIPTION OF PROCEDURE: The patient was brought to the operating room and placed on the operating table in a supine position. Once general endotracheal anesthesia was achieved the patient's abdomen is prepped and draped in sterile fashion. Had then proceeded to create a transverse incision at the left upper quadrant at hendrix's point and under direct visualization went through the abdominal wall with a 5 mm Optiview entered the abdominal cavity and obtain a pneumoperitoneum. After obtaining pneumoperitoneum we placed under direct visualization a 8 mm trocar in the left hemiabdomen to the left of the midline through the rectus muscle for the camera. There was significant amount of adhesions at the midline and right upper quadrant. Using the LigaSure device I then proceeded to take down the omental adhesions at the midline and right upper quadrant until we had enough room to place our instruments. Once all the adhesions were taken down we then proceeded to place an8 mm trocar in the right upper quadrant and then another one in the right flank. Switched out the 5 mm trocar in the left upper quadrant for an8 mm trocar. Place the patient in reverse Trendelenburg and rotated to the left. Brought the robot over top of the patient right and docked the robot. A significant amount of ascites around the gallbladder that was suctioned out approximately 1 L in total. There was significant amount of adhesions to the gallbladder that were taken down with the cautery with dissection. I then proceeded to retract the gallbladder from the fundus and infundibulum and started our dissection of the hilum. We bluntly dissected the hilum to expose the cystic duct and cystic artery and once we had a critical view for safety, which was confirmed with firefly technology. We proceeded to place two clips in the cystic duct proximally and distally. We divided and then did the same with our cystic artery. We then proceeded to remove the gallbladder off the liver bed using Bovie cautery. Once this was done, we then proceeded to evaluate the liver bed for hemostasis. We made sure there was no bile leaks or any bleeding. I then proceeded to bring the 5 mm Endo-Catch bag through the lateral right port. Placed the gallbladder within the bag and within the bag I proceeded to drain it. We then proceeded to remove the trocar in this area and dilated the muscle with a hemostat and proceeded to remove the gallbladder through this right lateral port. I then closed the muscle with a running 2-0 V lock suture. We then proceeded to undocked our all her instruments and the robot. Removed all the trocars from the abdominal wall confirmed no bleeding. the skin incisions were closed using 4-0 Monocryl running subcuticular fashion and Dermabond. a sterile dressing was applied. The patient tolerated the procedure well. All counts correct x2 at the end of the procedure SUSAN JHAVERI MD Oct 13, 2025 13:54
--- NOTE | 2025-10-13 14:54 | NUR ---
Patient arrive to unit from procedure, asleep. Vitals 123/73 94 pulse sat 98.
--- NOTE | 2025-10-13 16:20 | PN ---
[facility] PROGRESS NOTE Date of Service: Oct 13, 2025 Time of Service: 16:13 SUBJECTIVE: This is a 55 year old female Diabetes, liver cirrhosis, esophageal varices, DVT, perisplenic abscess, acute gastritis, peritonitis with ESBL and E coli infection septic shock with a past surgical history of cholecystectomy, robotic sigmoid resection with takedown of colovesical fistula with a recent perforation of colonic anastomosis , diagnostic laparoscopy ,drain placement,abdominal wash out and creation of diverting loop ileostomy who was brought by EMS to the ED for complaints of abdominal pain and abdominal distention.Patient reports she was discharged yesterday from this facility even if she was not feeling well because she continues to have abdominal pain and distention she said and daughter was at bedside saying patient weighs 124 kg on admission and she was discharged home weighing 140 kgs and has been telling riri CERVANTES that patient is retaining fluids but still discharged her anyway she said.Patient states while at home she was unable to keep anything down because every time she eats her abdomen hurts and she became nauseated. Seen and examined patient in the ER awake,alert and coherent,patient appears uncomfortable and crying.Patient has diffuse abdominal tenderness on palpation.Patient has an Ileostomy which is patent and normally functioning.Patient denies fever,chills,vomiting,chest pain,palpitation and cough.Patient states she has occasional shortness of breath.Latest V/S latest vital signs temperature 99, heart rate 98, blood pressure 106/61 saturation 100% on room air. Labs: WBC 5.6, neutrophils 72, hemoglobin 9, hematocrit 29 and platelet count 137. Lactic acid 2.0, glucose 129, total calcium 7.7 albumin 2.2 nine the rest of the chemistries normal. Chest x-ray result revealed no acute cardiopulmonary pathology is evident. CT abdomen without contrast result revealed markedly progressed gross ascites and mesenteric fat stranding with generalized anasarca, concerning for worsening fluid overload. Moderate bilateral pleural effusions. Nodular hepatic margins consistent with cirrhotic changes stable. Distended small bowel loops without transition point likely ileus/enteritis new from prior. Calcified gallbladder wall stable. Post Ileostomy status. Stable scattered colonic diverticulosis. Small hiatus hernia stable removal of pigtail catheter from sub splenic collection with resultant mild peritoneal thickening. No acute intra-abdominal abnormality otherwise. While in the ER patient received morphine 2 mg IV, Zofran 4 mg IV Rocephin 2 g IV NS 500 IV bolus and Reglan 10 mg IV.Patient is pending for NGT insertion.Er called and recommended to admit the patient. 10/08/2025: Patient was seen and examined this morning at bedside. The patient is accompanied by her daughter. The patient is on NG tube, which has very minimal output. The patient appears uncomfortable with the NG tube, and complains that it is bothering her and causing her pain. The patients daughter states the patient is not regularly using the restroom to urinate. The patient reports she believes she is retaining urine. We will order a bladder scan and follow up with the results. The patients abdomen appears distended upon physical examination. Patient reports tenderness bilaterally in the flank regions. Bowel sounds were hypoactive upon auscultation. No peripheral edema is noted. Heart sounds are heard, no murmurs appreciated. Interventional radiology has been called for possible paracentesis due to the patients ascites. The patient will be started on daily IV Lasix and Aldactone. We will continue to monitor her electrolytes daily, and correct accordingly. Pregabalin has been added to her pain regimen. The patient denies chest pain, shortness of breath, nausea, vomiting, fever, chills. 10/09/2025: She was evaluated at the bedside this morning. No overnight event. She is AAO x3. She do complain of mild abdominal discomfort on the right and left upper abdomen. She is hemodynamically stable. NG tube was taken out and started on clear liquid diet. Labs remarkable for WBC 3.2, hemoglobin 8.4, platelet 116, phosphorus 1.9, CRP 40.1, bicarbonate 2. 24 hour blood culture negative. She is on [id number] mg, furosemide 40 mg IV, duloxetine, quetiapine, pregabalin, sodium bicarbonate, midodrine, pantoprazole, Rocephin and PRN pain med. She do have a large ascites. Plan is to get ascitic tapping for both therapeutic and diagnostic. Surgery recommended to get HIDA scan for the possible recurrent acute cholecystitis. Psychiatry recommended to restart her on Cymbalta and Seroquel. For her hypo phosphatase Kaity, we have started her on Neutra-Phos times a day and give 1 dose of IV [id number] millimole. GI on the board. Rest of the plan as discussed below. 10/10/2025: Patient is seen and evaluated in the room 306. She do complain of mild abdominal discomfort on the right and left upper abdomen. Her vitals are in the normal range. Her labs are in the normal range except for hemoglobin is 8.1, magnesium is 1.7. She had her HIDA scan done today and it showed acute cholecystitis. As her magnesium is low we replaced it. She is supposed to undergo paracentesis tomorrow. 10/11/2025: Patient is seen and evaluated in the room 306. She complained of mild abdominal pain. Her vitals are in the normal range. Her labs are normal except for hemoglobin is 8.2, WBC is 2.9, MCV is 101.2, RDW is 18.1, platelet is 108, magnesium is 1.5, phosphorus is 2, iron is 40, TIBC is 167,% saturation is 23.9. We gave her PPN. She underwent paracentesis today and they removed 1litre of fluid and they sent it for analysis and it is negative. Her blood culture is negative. Gram stain of ascitic fluid no organisms are seen. We stopped Phos Nak packet to IV potassium phosphate. We will repeat the phosphorus tomorrow. She is started on regular diet. General surgery recommended cholecystectomy on Saturday. So we will hold the lasix tomorrow. 10/12/2025: Patient is seen and evaluated in the room 306. She has no symptoms today. Her vitals are in the normal range. She is able to tolerate her diet. Her labs are normal except for hemoglobin 8.6, MCV is 100.4, RDW is 17.6, potassium is 3.1, glucose is 177. Her phosphorus is 1.9 So we added potassium phosphate 1 dose and we restarted Phos-Nak packet. As she is having surgery tomorrow we stopped her lasix and aldactone. We also reduced the dose of bicarbonate to QID to TID. 10/13/2025: Patient is seen and evaluated in the room 306. She has no symptoms today. Her vitals are in the normal range. Labs are normal except for WBC 4.5, hemoglobin 9.9, phosphorus 1.6. Her bile fluid culture showed no growth at 24 to 35 hours. She underwent laparoscopic cholecystectomy today. We also added potassium phosphate as her phosphorus is low and we will repeat her phosphorus level tomorrow. We resume her Lasix and Aldactone tomorrow. REVIEW OF SYSTEMS CONSTITUTIONAL: Denies fevers, chills, or night sweats. No unintentional weight loss reported. NEUROLOGICAL: Denies headache, amaurosis fugax, motor weakness, sensory deficit, vertigo/spinning sensation, gait abnormalities, or tremors. ENT: No hearing loss, otalgia, otorrhea, rhinitis, rhinorrhea, hoarseness, or sore throat. CARDIOVASCULAR: Denies any exertional angina, dyspnea on exertion, orthopnea, paroxysmal nocturnal dyspnea, palpitations, life-threatening arrhythmias, claudication. PULMONARY: Denies any shortness of breath, cough, phlegm/sputum, hemoptysis, pleuritic chest pain. SLEEP: Denies morning headaches, daytime somnolence or napping. Denies difficulty falling asleep, staying asleep, waking from sleep. Denies knowledge of snoring. GASTROINTESTINAL: Complains of abdominal distention, and abdominal pain. Denies any type of dysphagia to either liquids or solids. Denies vomiting, pyrosis, early satiety, diarrhea, constipation, or changes in stool consistency or caliber. Denies coffee-ground emesis, hematemesis, hematochezia, or melanotic stools. GENITOURINARY: Denies frequency, urgency, nocturia, hematuria or incontinence (Storage/Irritative symptoms.) Low urinary stream, straining to void, urinary intermittency or hesitancy, splitting of the voiding stream, terminal dribbling. ENDOCRINOLOGIC: Denies polyuria, polydipsia, polyphagia or heat/cold intolerances. HEMATOLOGIC: Denies thrombophilia/previous clots, or coagulopathy/bleeding disorders. ONCOLOGIC: Denies personal history of malignancy. DERMATOLOGIC: Denies rashes or pruritus. PSYCHIATRIC: Denies any suicidal or homicidal ideation. Denies hallucinations. PHYSICAL EXAM GENERAL APPEARANCE: The patient is awake, alert, and oriented, in no acute cardiopulmonary distress. NEUROLOGICAL: Cranial nerves II-XII grossly intact. Motor is 5/5 in bilateral upper and lower extremities proximal to distal. No sensory deficits. HEENT: Face is symmetric. Pupils are equal and reactive. Extraocular movements are intact. NECK: Supple. No JVD. No thyromegaly. No submental, submandibular, pre-/ postauricular, occipital or supraclavicular lymphadenopathy. CHEST: Normal chest expansion. No Telemetry. LUNGS: Absence of any rales, rhonchi or any wheezing. CARDIOVASCULAR: Regular. S1 and S2 normal. No appreciable rubs, murmurs or gallops. ABDOMEN: Positive hypoactive bowel sounds, diffuse tenderness x4 abdominal quadrants patient+ Ileostomy Soft and distended .There is no rebound, voluntary guarding, or rigidity. : Deferred. No Dueñas. EXTREMITIES: Non-edematous and not cyanotic. No clubbing. Good capillary refill. SKIN: No skin breakdown. Vital Signs (last 8hr) Date Time Temp Pulse Resp B/P (MAP) Pulse Ox O2 Delivery O2 Flow Rate FiO2 10/13/25 14:50 98.2 88 19 125/66 98 Nasal Cannula 3.0 10/13/25 14:45 90 20 118/63 98 Nasal Cannula 3.0 10/13/25 14:40 90 20 129/68 98 Nasal Cannula 3.0 10/13/25 14:35 88 19 139/81 98 Nonrebreathing Mask 10.0 10/13/25 14:30 91 19 135/74 98 Nasal Cannula 3.0 10/13/25 14:25 87 20 129/67 99 Nasal Cannula 3.0 10/13/25 14:20 90 18 131/65 100 Nonrebreathing Mask 10.0 10/13/25 14:15 87 20 133/67 100 Nonrebreathing Mask 10.0 10/13/25 14:10 89 17 131/77 100 Nonrebreathing Mask 10.0 10/13/25 14:05 97.5 88 16 135/75 100 Nonrebreathing Mask 10.0 10/13/25 11:15 97.3 79 16 126/71 100 Room Air LABS: Laboratory: Test 10/13/25 14:36 10/13/25 04:40 10/12/25 04:44 Range/Units Whole Blood Glucose 100 70-110 MG/DL White Blood Count 4.5 #L 4.8-10.8 K/uL Red Blood Count 3.08 L 4.00-5.50 MIL/uL Hemoglobin 9.9 L 12.0-16.0 g/dL Hematocrit 30.6 L 36-48 % Mean Corpuscular Volume 99.4 H 79-99 fL Mean Corpuscular Hemoglobin 32.1 27.0-33.0 pg Mean Corpuscular Hemoglobin Concent 32.4 32.0-36.0 g/dL Red Cell Distribution Width 17.1 H 11.0-15.5 % Platelet Count 147 130-400 K/uL Mean Platelet Volume 9.5 7.5-10.5 fL Nucleated Red Blood Cells 0.0 0.0-0.19 % Sodium Level 136 136-145 mmol/L Potassium Level 4.1 3.5-5.1 mmol/L Chloride Level 106 101-111 mmol/L Carbon Dioxide Level 22 21-32 mmol/L Blood Urea Nitrogen 11 7-18 mg/dL Creatinine 0.8 0.5-1.0 mg/dL Glomerular Filtration Rate Calc 86 >90 mL/min Random Glucose 92 70-105 mg/dL Total Calcium 8.3 L 8.5-10.1 mg/dL Phosphorus Level 1.6 L 2.5-4.9 mg/dL Magnesium Level 1.90 1.80-2.40 mg/dL Total Bilirubin 0.3 0.2-1.0 mg/dL Direct Bilirubin 0.1 0.0-0.3 mg/dL Aspartate Amino Transf (AST/SGOT) 25 10-37 U/L Alanine Aminotransferase (ALT/SGPT) 16 12-78 U/L Alkaline Phosphatase 71 50-136 U/L Total Protein 5.3 L 6.0-8.3 g/dL Albumin 1.9 L 3.5-5.0 g/dL Current Medications Medications (Trade) Dose Ordered Sig/Gregory Route PRN Reason Start Time Stop Time Status Last Admin Dose Admin Albumin Human 50 ml @ 0 mls/hr AD IV 10/09/25 17:00 10/12/25 13:28 DC 10/09/25 21:30 50 MLS/HR Ceftriaxone Sodium 1 gm/ Sodium Chloride 50 ml @ 100 mls/hr Q24H IV 10/08/25 09:00 10/07/25 23:39 DC Ceftriaxone Sodium (ROCEphine 1G INJ) 1 gm Q24H IVPB 10/07/25 23:45 10/17/25 23:44 10/12/25 23:48 1 GM Dextrose (D50w) 50 ml AD PRN IV HYPOGLYCEMIA PROTOCOL 10/07/25 23:30 10/11/25 11:30 DC 10/11/25 05:19 50 ML Dicyclomine HCl (Bentyl 20mg Tab) 10 mg Q6H6 PO 10/08/25 12:00 11/07/25 11:59 10/12/25 15:42 10 MG Duloxetine HCl (CymbALTA 30 mg CAP) 20 mg BID PO 10/08/25 21:00 10/08/25 21:25 DC Duloxetine HCl (CymbALTA 30 mg CAP) 30 mg BID PO 10/08/25 22:00 11/07/25 21:59 10/12/25 21:00 30 MG Folic Acid (FOLic ACID 1 MG TABLET) 1 mg DAILY PO 10/09/25 09:00 11/08/25 08:59 10/12/25 09:22 1 MG Furosemide (LASix 40MG VIAL) 40 mg DAILY IV 10/09/25 09:00 10/12/25 13:27 DC 10/12/25 09:22 40 MG Gabapentin (NEURontin 100 mg CAP) 100 mg TID PO 10/13/25 21:00 11/12/25 20:59 Glucagon (Glucagon 1mg Kit) 1 mg AD PRN IM HYPOGLYCEMIA PROTOCOL 10/07/25 23:30 11/06/25 23:29 Insulin Human Regular (humuLIN R 100 UNIT/ML 3ML) INSULIN SLIDING SCAL... ACHS SQ 10/08/25 07:30 11/07/25 07:29 Lactated Ringer's 1,000 ml @ 50 mls/hr Q20H IV 10/07/25 23:30 10/08/25 10:45 DC 10/08/25 01:34 50 MLS/HR Magnesium Sulfate 50 ml @ 0 mls/hr PROTOCOL PRN IV MAG LEVEL BELOW 2.0 10/10/25 10:00 11/09/25 09:59 10/11/25 06:16 25 MLS/HR Metronidazole/ Sodium Chloride 100 ml @ 100 mls/hr Q8H IVPB 10/10/25 22:00 10/20/25 21:59 10/13/25 05:48 100 MLS/HR Midodrine (PROAMatine 5 MG TABLET) 10 mg Q8H PO 10/08/25 11:30 11/07/25 11:29 10/12/25 12:28 10 MG Morphine Sulfate (morPHINE 2MG SYG) 2 mg Q4H PRN IV SEVERE PAIN (7-10) 10/07/25 23:30 10/13/25 02:29 DC 10/12/25 15:43 2 MG Ondansetron HCl (zoFRAN 4MG INJ) 4 mg Q6H PRN IV NAUSEA/VOMITING 10/07/25 23:30 11/06/25 23:29 10/12/25 07:26 4 MG Pantoprazole Sodium (PROTonix 40MG INJ) 40 mg DAILY IVP 10/08/25 09:00 11/07/25 08:59 10/13/25 09:32 40 MG Pharmacy Profile Note (Lace Assessment) 1 each AD MISC 10/08/25 10:30 10/08/25 10:33 DC Potassium Phosphate 250 ml @ 42 mls/hr PROTOCOL PRN IV PROTOCOL 10/13/25 10:00 10/13/25 10:01 DC Potassium Chloride 100 ml @ 100 mls/hr AD PRN IV POTASSIUM PROTOCOL 10/12/25 01:00 11/11/25 00:59 Potassium Chloride (K-Dur/Klor-Con 20meq) 20 meq AD PRN PO POTASSIUM PROTOCOL 10/12/25 01:00 11/11/25 00:59 10/12/25 23:48 20 MEQ Potassium Chloride (KCl 10% Elixir 20meq/15ml) 20 meq AD PRN PO POTASSIUM PROTOCOL 10/12/25 01:00 11/11/25 00:59 10/12/25 06:34 20 MEQ Potassium Phos/ Sodium Phos (PHOS-NaK PACKET 1 EACH) 1 packet TID PO 10/09/25 21:00 10/11/25 11:30 DC 10/10/25 20:31 1 PACKET Potassium Phos/ Sodium Phos (PHOS-NaK PACKET 1 EACH) 1 packet TID PO 10/12/25 21:00 10/14/25 20:59 10/12/25 21:02 1 PACKET Pregabalin (LYRica 25MG) 25 mg DAILYDINNER PO 10/08/25 17:00 11/07/25 16:59 10/12/25 15:42 25 MG Quetiapine Fumarate (SEROquel 25 mg TAB) 25 mg HS PO 10/08/25 21:00 11/07/25 20:59 10/12/25 21:00 25 MG Simethicone (Mylicon) 80 mg TID PO 10/13/25 21:00 11/12/25 20:59 Sodium Bicarbonate (Sodium Bicarbonate) 1,300 mg QID PO 10/08/25 13:00 10/12/25 13:26 DC 10/12/25 12:47 1,300 MG Sodium Bicarbonate (Sodium Bicarbonate) 1,300 mg TID PO 10/12/25 14:00 11/07/25 12:59 10/12/25 21:00 1,300 MG Spironolactone (Aldactone 25mg) 25 mg DAILY PO 10/09/25 09:00 10/12/25 13:28 DC 10/12/25 09:22 25 MG Vitamin B Complex (Vitamin B-12) 1,000 mcg DAILY PO 10/09/25 09:00 11/08/25 08:59 10/12/25 09:22 1,000 MCG DIAGNOSTICS / RADIOLOGY: [ ] ASSESSMENT: Acute abdominal pain POA Severe volume overload with worsening ascites per CT POA Mesenteric fat stranding likely inflammatory/ edematous process per CT POA Ileus post abdominal surgery POA Low hemoglobin Hypophosphatemia Hyomagnesemia Ileostomy status POA Protein calorie malnutrition POA Moderate bilateral pleural effusion CP POA Chronic anemia POA Diabetes POA PLAN: Acute abdominal pain -patient currently on clear liquid diet. We will advance her diet as she tolerated. -procalcitonin less than 0.05, CRP 40.10. -Patient is on Rocephin (day 7) for empiric coverage. -Pregabalin has been added to the patients pain regimen. -surgery recommended to get HIDA scan and it showed acute cholecystitis. -She underwent laparoscopic cholecystectomy today.. -we held the Lasix and Aldactone because of the procedure but we will resume them tomorrow. Severe volume overload with worsening ascites -Lasix 40 mg IV daily -25 mg Aldactone daily -Interventional radiology has been consulted for possible paracentesis. -She underwent paracentesis today and they removed 1 litre of fluid. They sent the ascitic fluid for analysis and it is normal. -she underwent laparoscopic cholecystectomy. We held the Lasix and Aldactone because of the procedure but we will resume them tomorrow. Ileus post abdominal surgery -CT abdomen revealed mildly distended small bowel loops without transition point, likely ileus/enteritis. -surgery is on board. -we will correct her electrolytes. Low hemoglobin - Today her hemoglobin is 9.9, MCV is 99.4, RDW is 17.1. -iron 40, TIBC is 167 -We will continue to monitor her labs. Hypophosphatemia -phosphorus 1.6. -Today we gave her a dose of potassium phosphate and we started her on Phos-Nak packet. - We will repeat his labs tomorrow. Hyomagnesemia - Today her magnesium level is 2. - She is on Magnesium protocol. -We will repeat her labs tomorrow. MDD POA Anxiety POA -tele psych was consulted. Recommended to start her on Cymbalta 20 mg b.i.d. and Seroquel 25 mg q.h.s.. Ileostomy status POA -Output form the ileostomy is 2230 ml today. We gave her 1 bag of PPN and general surgery started her on regular diet. Protonix daily for GI prophylaxis SCD's for DVT prophylaxis Home medications have been reconciled. ATTESTATION BY PHYSICIAN I have seen and examined the patient. I reviewed the documentation, medical decision making, and treatment plan as noted by the resident physician above. I agree with the findings and plan of care. Denzel Coello IV, MD, AKSHAY MD Oct 13, 2025 16:20
[2025-10-13] MEDS: SIMETHICONE 80 MG TAB.CHEW PO SCH (20:45)
--- NOTE | 2025-10-13 21:47 | PN ---
GASTROENTEROLOGY PROGRESS NOTE Date of Visit: Oct 13, 2025 Time of Visit: 21:47 Events / Notes: this is a 55-year-old female who is known to services with past medical history of diabetes, cirrhosis, esophageal varices, DVT, gastritis, peritonitis with robotic sigmoid resection with takedown of colovesical fistula and ileostomy who presented due to abdominal pain and distention. She has been having frequent readmissions. She was recently admitted with concern for GI bleed and ostomy however no stigmata of bleeding from esophageal varices. Review of Systems: CONSTITUTIONAL: No malaise or change in sensation of wellbeing. ENMT: No rhinorrhea, otorrhea, sinus pain, ear ache. CARDIOVASCULAR: No angina, palpitations, orthopnea or paroxysmal dyspnea. RESPIRATORY: No SOB. GASTROINTESTINAL: No abdominal pain, nausea, vomiting, diarrhea, hematemesis, melena or change in the patient's habitual bowel movements consistency/number. GENITOURINARY: No dysuria, hematuria or change in bladder continence. MUSCULOSKELETAL: No new muscle pain or decrease in muscular strength. No new joint swelling, redness or tenderness. SKIN: No new rash. Physical Exam: GEN: Awake, alert, oriented in person, time and place, and in no acute distress. HEENT: No sinus tenderness. Tympanic membranes were not examined. No rhinorrhea. Oral pharyngeal mucosa is pink, moist and within normal limits. Neck is supple with no cervical lymphadenopathy, thyromegaly or JVD. CHEST: Inspection, palpation and percussion of the chest were unremarkable. Lung auscultation revealed normal breath sounds bilaterally. CARDIAC: PMI is within normal limits. Heart sounds are regular. Normal S1, S2. No gallop or murmur. ABD: Soft, non-tender and not distended. No peritoneal signs on palpation. No organomegaly. Normal bowel sounds. EXT: No cyanosis or clubbing. No edema. SKIN: Intact. No rashes. JOINTS: No evidence of synovitis or acute arthritis. NEURO: Alert and oriented to name, place and person. Cranial nerve examination is unremarkable. No focal motor deficits. Normal speech. Gait is normal. Strength is normal. Vital Signs (last 8hr) Date Time Temp Pulse Resp B/P (MAP) Pulse Ox O2 Delivery O2 Flow Rate FiO2 10/13/25 20:00 98.2 90 18 114/71 99 Room Air 10/13/25 15:00 97.9 92 18 119/71 97 Nasal Cannula 3.0 10/13/25 14:50 98.2 88 19 125/66 98 Nasal Cannula 3.0 10/13/25 14:45 90 20 118/63 98 Nasal Cannula 3.0 10/13/25 14:40 90 20 129/68 98 Nasal Cannula 3.0 10/13/25 14:35 88 19 139/81 98 Nonrebreathing Mask 10.0 10/13/25 14:30 91 19 135/74 98 Nasal Cannula 3.0 10/13/25 14:25 87 20 129/67 99 Nasal Cannula 3.0 10/13/25 14:20 90 18 131/65 100 Nonrebreathing Mask 10.0 10/13/25 14:15 87 20 133/67 100 Nonrebreathing Mask 10.0 10/13/25 14:10 89 17 131/77 100 Nonrebreathing Mask 10.0 10/13/25 14:05 97.5 88 16 135/75 100 Nonrebreathing Mask 10.0 Laboratory: [ ] Laboratory: Test 10/13/25 19:58 10/13/25 04:40 10/12/25 04:44 Range/Units Whole Blood Glucose 104 70-110 MG/DL White Blood Count 4.5 #L 4.8-10.8 K/uL Red Blood Count 3.08 L 4.00-5.50 MIL/uL Hemoglobin 9.9 L 12.0-16.0 g/dL Hematocrit 30.6 L 36-48 % Mean Corpuscular Volume 99.4 H 79-99 fL Mean Corpuscular Hemoglobin 32.1 27.0-33.0 pg Mean Corpuscular Hemoglobin Concent 32.4 32.0-36.0 g/dL Red Cell Distribution Width 17.1 H 11.0-15.5 % Platelet Count 147 130-400 K/uL Mean Platelet Volume 9.5 7.5-10.5 fL Nucleated Red Blood Cells 0.0 0.0-0.19 % Sodium Level 136 136-145 mmol/L Potassium Level 4.1 3.5-5.1 mmol/L Chloride Level 106 101-111 mmol/L Carbon Dioxide Level 22 21-32 mmol/L Blood Urea Nitrogen 11 7-18 mg/dL Creatinine 0.8 0.5-1.0 mg/dL Glomerular Filtration Rate Calc 86 >90 mL/min Random Glucose 92 70-105 mg/dL Total Calcium 8.3 L 8.5-10.1 mg/dL Phosphorus Level 1.6 L 2.5-4.9 mg/dL Magnesium Level 1.90 1.80-2.40 mg/dL Total Bilirubin 0.3 0.2-1.0 mg/dL Direct Bilirubin 0.1 0.0-0.3 mg/dL Aspartate Amino Transf (AST/SGOT) 25 10-37 U/L Alanine Aminotransferase (ALT/SGPT) 16 12-78 U/L Alkaline Phosphatase 71 50-136 U/L Total Protein 5.3 L 6.0-8.3 g/dL Albumin 1.9 L 3.5-5.0 g/dL Current Medications Medications (Trade) Dose Ordered Sig/Gregory Route PRN Reason Start Time Stop Time Status Last Admin Dose Admin Albumin Human 50 ml @ 0 mls/hr AD IV 10/09/25 17:00 10/12/25 13:28 DC 10/09/25 21:30 50 MLS/HR Ceftriaxone Sodium 1 gm/ Sodium Chloride 50 ml @ 100 mls/hr Q24H IV 10/08/25 09:00 10/07/25 23:39 DC Ceftriaxone Sodium (ROCEphine 1G INJ) 1 gm Q24H IVPB 10/07/25 23:45 10/17/25 23:44 10/12/25 23:48 1 GM Dextrose (D50w) 50 ml AD PRN IV HYPOGLYCEMIA PROTOCOL 10/07/25 23:30 10/11/25 11:30 DC 10/11/25 05:19 50 ML Dicyclomine HCl (Bentyl 20mg Tab) 10 mg Q6H6 PO 10/08/25 12:00 11/07/25 11:59 10/13/25 17:46 10 MG Duloxetine HCl (CymbALTA 30 mg CAP) 20 mg BID PO 10/08/25 21:00 10/08/25 21:25 DC Duloxetine HCl (CymbALTA 30 mg CAP) 30 mg BID PO 10/08/25 22:00 11/07/25 21:59 10/13/25 20:45 30 MG Folic Acid (FOLic ACID 1 MG TABLET) 1 mg DAILY PO 10/09/25 09:00 11/08/25 08:59 10/12/25 09:22 1 MG Furosemide (LASix 40MG VIAL) 40 mg DAILY IV 10/09/25 09:00 10/12/25 13:27 DC 10/12/25 09:22 40 MG Gabapentin (NEURontin 100 mg CAP) 100 mg TID PO 10/13/25 21:00 11/12/25 20:59 10/13/25 20:45 100 MG Glucagon (Glucagon 1mg Kit) 1 mg AD PRN IM HYPOGLYCEMIA PROTOCOL 10/07/25 23:30 11/06/25 23:29 Insulin Human Regular (humuLIN R 100 UNIT/ML 3ML) INSULIN SLIDING SCAL... ACHS SQ 10/08/25 07:30 11/07/25 07:29 Lactated Ringer's 1,000 ml @ 50 mls/hr Q20H IV 10/07/25 23:30 10/08/25 10:45 DC 10/08/25 01:34 50 MLS/HR Magnesium Sulfate 50 ml @ 0 mls/hr PROTOCOL PRN IV MAG LEVEL BELOW 2.0 10/10/25 10:00 11/09/25 09:59 10/11/25 06:16 25 MLS/HR Metronidazole/ Sodium Chloride 100 ml @ 100 mls/hr Q8H IVPB 10/10/25 22:00 10/20/25 21:59 10/13/25 05:48 100 MLS/HR Midodrine (PROAMatine 5 MG TABLET) 10 mg Q8H PO 10/08/25 11:30 11/07/25 11:29 10/13/25 20:51 10 MG Morphine Sulfate (morPHINE 2MG SYG) 2 mg Q4H PRN IV SEVERE PAIN (7-10) 10/07/25 23:30 10/13/25 02:29 DC 10/12/25 15:43 2 MG Morphine Sulfate (morPHINE 4MG SYG) 4 mg Q4H PRN IVP SEVERE PAIN (7-10) 10/13/25 18:00 10/20/25 17:59 10/13/25 17:46 4 MG Ondansetron HCl (zoFRAN 4MG INJ) 4 mg Q6H PRN IV NAUSEA/VOMITING 10/07/25 23:30 11/06/25 23:29 10/12/25 07:26 4 MG Pantoprazole Sodium (PROTonix 40MG INJ) 40 mg DAILY IVP 10/08/25 09:00 11/07/25 08:59 10/13/25 09:32 40 MG Pharmacy Profile Note (Lace Assessment) 1 each AD MISC 10/08/25 10:30 10/08/25 10:33 DC Potassium Phosphate 250 ml @ 42 mls/hr PROTOCOL PRN IV PROTOCOL 10/13/25 10:00 10/13/25 10:01 DC Potassium Chloride 100 ml @ 100 mls/hr AD PRN IV POTASSIUM PROTOCOL 10/12/25 01:00 11/11/25 00:59 Potassium Chloride (K-Dur/Klor-Con 20meq) 20 meq AD PRN PO POTASSIUM PROTOCOL 10/12/25 01:00 11/11/25 00:59 10/12/25 23:48 20 MEQ Potassium Chloride (KCl 10% Elixir 20meq/15ml) 20 meq AD PRN PO POTASSIUM PROTOCOL 10/12/25 01:00 11/11/25 00:59 10/12/25 06:34 20 MEQ Potassium Phos/ Sodium Phos (PHOS-NaK PACKET 1 EACH) 1 packet TID PO 10/09/25 21:00 10/11/25 11:30 DC 10/10/25 20:31 1 PACKET Potassium Phos/ Sodium Phos (PHOS-NaK PACKET 1 EACH) 1 packet TID PO 10/12/25 21:00 10/14/25 20:59 10/13/25 20:46 1 PACKET Pregabalin (LYRica 25MG) 25 mg DAILYDINNER PO 10/08/25 17:00 11/07/25 16:59 10/13/25 17:46 25 MG Quetiapine Fumarate (SEROquel 25 mg TAB) 25 mg HS PO 10/08/25 21:00 11/07/25 20:59 10/13/25 20:45 25 MG Simethicone (Mylicon) 80 mg TID PO 10/13/25 21:00 11/12/25 20:59 10/13/25 20:45 80 MG Sodium Bicarbonate (Sodium Bicarbonate) 1,300 mg QID PO 10/08/25 13:00 10/12/25 13:26 DC 10/12/25 12:47 1,300 MG Sodium Bicarbonate (Sodium Bicarbonate) 1,300 mg TID PO 10/12/25 14:00 11/07/25 12:59 10/13/25 20:45 1,300 MG Spironolactone (Aldactone 25mg) 25 mg DAILY PO 10/09/25 09:00 10/12/25 13:28 DC 10/12/25 09:22 25 MG Vitamin B Complex (Vitamin B-12) 1,000 mcg DAILY PO 10/09/25 09:00 11/08/25 08:59 10/12/25 09:22 1,000 MCG Diagnostics / Radiology: [COPY/PASTE HERE IF NO REPORTS PLEASE DELETE SECTION] Assessment: Cirrhosis DM Ileostomy status Plan: No GI intervention warranted at this time Continue GI prophylaxis Advance diet as tolerated Avoid NSAIDs Antireflux measures Monitor H&H and transfuse as needed Call with questions, concerns or change in clinical status Patient to follow-up at clinic post discharge Thank you for this consult STEPHEN THAO [employer] Oct 13, 2025 21:47
[2025-10-14] VITALS (9 sets, daily range): BP systolic 98–144; BP diastolic 48–74; PULSE 72–79; RESP 17–18; TEMP 98–98.7; O2SAT 98–99
[2025-10-14 05:31] LABS: NUCLEATED RED BLOOD CELLS 0.0 % (0.0-0.19); PLATELET COUNT (AUTO) 159.0 K/uL (130-400); RED BLOOD CELL COUNT(AUTO) 2.81 MIL/uL (4.00-5.50); RED CELL DISTRIBUTION WIDTH 17.6 % (11.0-15.5); WHITE BLOOD COUNT (AUTO) 4.9 K/uL (4.8-10.8)
[2025-10-14 05:54] LABS: ASPARTATE AMINOTRANSFERASE 45.0 U/L (10-37); CREATININE 0.7 mg/dL (0.5-1.0); GLOMERULAR FILTR. RATE CALC 101.0 mL/min (>90); GLUCOSE,RANDOM 93.0 mg/dL (70-105); PHOSPHORUS 1.8 mg/dL (2.5-4.9); SODIUM SERUM 139.0 mmol/L (136-145); TOTAL PROTEIN, SERUM 5.6 g/dL (6.0-8.3); UREA NITROGEN, BLOOD 9.0 mg/dL (7-18)
--- NOTE | 2025-10-14 12:19 | PN ---
GASTROENTEROLOGY PROGRESS NOTE Date of Visit: Oct 14, 2025 Time of Visit: 12:19 Events / Notes: this is a 55-year-old female who is known to services with past medical history of diabetes, cirrhosis, esophageal varices, DVT, gastritis, peritonitis with robotic sigmoid resection with takedown of colovesical fistula and ileostomy who presented due to abdominal pain and distention. She has been having frequent readmissions. She was recently admitted with concern for GI bleed and ostomy however no stigmata of bleeding from esophageal varices. Review of Systems: CONSTITUTIONAL: No malaise or change in sensation of wellbeing. ENMT: No rhinorrhea, otorrhea, sinus pain, ear ache. CARDIOVASCULAR: No angina, palpitations, orthopnea or paroxysmal dyspnea. RESPIRATORY: No SOB. GASTROINTESTINAL: No abdominal pain, nausea, vomiting, diarrhea, hematemesis, melena or change in the patient's habitual bowel movements consistency/number. GENITOURINARY: No dysuria, hematuria or change in bladder continence. MUSCULOSKELETAL: No new muscle pain or decrease in muscular strength. No new joint swelling, redness or tenderness. SKIN: No new rash. Physical Exam: GEN: Awake, alert, oriented in person, time and place, and in no acute distress. HEENT: No sinus tenderness. Tympanic membranes were not examined. No rhinorrhea. Oral pharyngeal mucosa is pink, moist and within normal limits. Neck is supple with no cervical lymphadenopathy, thyromegaly or JVD. CHEST: Inspection, palpation and percussion of the chest were unremarkable. Lung auscultation revealed normal breath sounds bilaterally. CARDIAC: PMI is within normal limits. Heart sounds are regular. Normal S1, S2. No gallop or murmur. ABD: Soft, non-tender and not distended. No peritoneal signs on palpation. No organomegaly. Normal bowel sounds. EXT: No cyanosis or clubbing. No edema. SKIN: Intact. No rashes. JOINTS: No evidence of synovitis or acute arthritis. NEURO: Alert and oriented to name, place and person. Cranial nerve examination is unremarkable. No focal motor deficits. Normal speech. Gait is normal. Strength is normal. Vital Signs (last 8hr) Date Time Temp Pulse Resp B/P (MAP) Pulse Ox O2 Delivery O2 Flow Rate FiO2 10/14/25 11:24 98.1 76 18 144/66 100 Room Air 10/14/25 07:43 98.8 72 18 126/60 97 Room Air Laboratory: [ ] Laboratory: Test 10/14/25 10:44 10/14/25 05:10 Range/Units Whole Blood Glucose 89 70-110 MG/DL White Blood Count 4.9 4.8-10.8 K/uL Red Blood Count 2.81 L 4.00-5.50 MIL/uL Hemoglobin 9.0 L 12.0-16.0 g/dL Hematocrit 28.5 L 36-48 % Mean Corpuscular Volume 101.4 H 79-99 fL Mean Corpuscular Hemoglobin 32.0 27.0-33.0 pg Mean Corpuscular Hemoglobin Concent 31.6 L 32.0-36.0 g/dL Red Cell Distribution Width 17.6 H 11.0-15.5 % Platelet Count 159 130-400 K/uL Mean Platelet Volume 9.8 7.5-10.5 fL Nucleated Red Blood Cells 0.0 0.0-0.19 % Sodium Level 139 136-145 mmol/L Potassium Level 4.0 3.5-5.1 mmol/L Chloride Level 109 101-111 mmol/L Carbon Dioxide Level 19 L 21-32 mmol/L Blood Urea Nitrogen 9 7-18 mg/dL Creatinine 0.7 0.5-1.0 mg/dL Glomerular Filtration Rate Calc 101 >90 mL/min Random Glucose 93 70-105 mg/dL Total Calcium 7.8 L 8.5-10.1 mg/dL Phosphorus Level 1.8 L 2.5-4.9 mg/dL Magnesium Level 1.70 L 1.80-2.40 mg/dL Total Bilirubin 0.4 0.2-1.0 mg/dL Aspartate Amino Transf (AST/SGOT) 45 H 10-37 U/L Alanine Aminotransferase (ALT/SGPT) 12 12-78 U/L Alkaline Phosphatase 62 50-136 U/L Total Protein 5.6 L 6.0-8.3 g/dL Albumin 2.3 L 3.5-5.0 g/dL Current Medications Medications (Trade) Dose Ordered Sig/Gregory Route PRN Reason Start Time Stop Time Status Last Admin Dose Admin Albumin Human 50 ml @ 0 mls/hr AD IV 10/09/25 17:00 10/12/25 13:28 DC 10/09/25 21:30 50 MLS/HR Ceftriaxone Sodium 1 gm/ Sodium Chloride 50 ml @ 100 mls/hr Q24H IV 10/08/25 09:00 10/07/25 23:39 DC Ceftriaxone Sodium (ROCEphine 1G INJ) 1 gm Q24H IVPB 10/07/25 23:45 10/17/25 23:44 10/13/25 23:09 1 GM Dextrose (D50w) 50 ml AD PRN IV HYPOGLYCEMIA PROTOCOL 10/07/25 23:30 10/11/25 11:30 DC 10/11/25 05:19 50 ML Dicyclomine HCl (Bentyl 20mg Tab) 10 mg Q6H6 PO 10/08/25 12:00 11/07/25 11:59 10/14/25 11:57 10 MG Duloxetine HCl (CymbALTA 30 mg CAP) 20 mg BID PO 10/08/25 21:00 10/08/25 21:25 DC Duloxetine HCl (CymbALTA 30 mg CAP) 30 mg BID PO 10/08/25 22:00 11/07/25 21:59 10/14/25 09:32 30 MG Folic Acid (FOLic ACID 1 MG TABLET) 1 mg DAILY PO 10/09/25 09:00 11/08/25 08:59 10/14/25 09:33 1 MG Furosemide (LASix 40MG VIAL) 40 mg DAILY IV 10/09/25 09:00 10/12/25 13:27 DC 10/12/25 09:22 40 MG Gabapentin (NEURontin 100 mg CAP) 100 mg TID PO 10/13/25 21:00 11/12/25 20:59 10/14/25 09:33 100 MG Glucagon (Glucagon 1mg Kit) 1 mg AD PRN IM HYPOGLYCEMIA PROTOCOL 10/07/25 23:30 11/06/25 23:29 Insulin Human Regular (humuLIN R 100 UNIT/ML 3ML) INSULIN SLIDING SCAL... ACHS SQ 10/08/25 07:30 11/07/25 07:29 Lactated Ringer's 1,000 ml @ 50 mls/hr Q20H IV 10/07/25 23:30 10/08/25 10:45 DC 10/08/25 01:34 50 MLS/HR Magnesium Sulfate 50 ml @ 0 mls/hr PROTOCOL PRN IV MAG LEVEL BELOW 2.0 10/10/25 10:00 11/09/25 09:59 10/14/25 06:23 25 MLS/HR Metronidazole/ Sodium Chloride 100 ml @ 100 mls/hr Q8H IVPB 10/10/25 22:00 10/20/25 21:59 10/14/25 05:49 100 MLS/HR Midodrine (PROAMatine 5 MG TABLET) 10 mg Q8H PO 10/08/25 11:30 11/07/25 11:29 10/14/25 03:32 10 MG Morphine Sulfate (morPHINE 2MG SYG) 1 mg Q4H PRN IVP SEVERE PAIN (7-10) 10/14/25 14:00 10/21/25 13:59 Morphine Sulfate (morPHINE 2MG SYG) 2 mg Q4H PRN IV SEVERE PAIN (7-10) 10/07/25 23:30 10/13/25 02:29 DC 10/12/25 15:43 2 MG Morphine Sulfate (morPHINE 4MG SYG) 4 mg Q4H PRN IVP SEVERE PAIN (7-10) 10/13/25 18:00 10/14/25 10:32 DC 10/14/25 09:34 4 MG Ondansetron HCl (zoFRAN 4MG INJ) 4 mg Q6H PRN IV NAUSEA/VOMITING 10/07/25 23:30 11/06/25 23:29 10/12/25 07:26 4 MG Pantoprazole Sodium (PROTonix 40MG INJ) 40 mg DAILY IVP 10/08/25 09:00 11/07/25 08:59 10/14/25 09:33 40 MG Pharmacy Profile Note (Lace Assessment) 1 each AD MISC 10/08/25 10:30 10/08/25 10:33 DC Potassium Phosphate 250 ml @ 42 mls/hr PROTOCOL PRN IV PROTOCOL 10/13/25 10:00 10/13/25 10:01 DC Potassium Chloride 100 ml @ 100 mls/hr AD PRN IV POTASSIUM PROTOCOL 10/12/25 01:00 11/11/25 00:59 Potassium Chloride (K-Dur/Klor-Con 20meq) 20 meq AD PRN PO POTASSIUM PROTOCOL 10/12/25 01:00 11/11/25 00:59 10/12/25 23:48 20 MEQ Potassium Chloride (KCl 10% Elixir 20meq/15ml) 20 meq AD PRN PO POTASSIUM PROTOCOL 10/12/25 01:00 11/11/25 00:59 10/12/25 06:34 20 MEQ Potassium Phos/ Sodium Phos (PHOS-NaK PACKET 1 EACH) 1 packet TID PO 10/09/25 21:00 10/11/25 11:30 DC 10/10/25 20:31 1 PACKET Potassium Phos/ Sodium Phos (PHOS-NaK PACKET 1 EACH) 1 packet TID PO 10/12/25 21:00 10/14/25 20:59 10/14/25 09:33 1 PACKET Pregabalin (LYRica 25MG) 25 mg DAILYDINNER PO 10/08/25 17:00 11/07/25 16:59 10/13/25 17:46 25 MG Quetiapine Fumarate (SEROquel 25 mg TAB) 25 mg HS PO 10/08/25 21:00 11/07/25 20:59 10/13/25 20:45 25 MG Simethicone (Mylicon) 80 mg TID PO 10/13/25 21:00 11/12/25 20:59 10/14/25 09:33 80 MG Sodium Bicarbonate (Sodium Bicarbonate) 1,300 mg QID PO 10/08/25 13:00 10/12/25 13:26 DC 10/12/25 12:47 1,300 MG Sodium Bicarbonate (Sodium Bicarbonate) 1,300 mg TID PO 10/12/25 14:00 11/07/25 12:59 10/14/25 09:33 1,300 MG Spironolactone (Aldactone 25mg) 25 mg DAILY PO 10/09/25 09:00 10/12/25 13:28 DC 10/12/25 09:22 25 MG Vitamin B Complex (Vitamin B-12) 1,000 mcg DAILY PO 10/09/25 09:00 11/08/25 08:59 10/14/25 09:33 1,000 MCG Diagnostics / Radiology: [COPY/PASTE HERE IF NO REPORTS PLEASE DELETE SECTION] Assessment: Cirrhosis DM Ileostomy status Plan: No GI intervention warranted at this time Continue GI prophylaxis Advance diet as tolerated Avoid NSAIDs Antireflux measures Monitor H&H and transfuse as needed Call with questions, concerns or change in clinical status Patient to follow-up at clinic post discharge Thank you for this consult STEPHEN THAO [facility] Oct 14, 2025 12:19
--- NOTE | 2025-10-14 15:34 | PN ---
[facility] PROGRESS NOTE Date of Service: Oct 14, 2025 Time of Service: 15:21 SUBJECTIVE: This is a 55 year old female Diabetes, liver cirrhosis, esophageal varices, DVT, perisplenic abscess, acute gastritis, peritonitis with ESBL and E coli infection septic shock with a past surgical history of cholecystectomy, robotic sigmoid resection with takedown of colovesical fistula with a recent perforation of colonic anastomosis , diagnostic laparoscopy ,drain placement,abdominal wash out and creation of diverting loop ileostomy who was brought by EMS to the ED for complaints of abdominal pain and abdominal distention.Patient reports she was discharged yesterday from this facility even if she was not feeling well because she continues to have abdominal pain and distention she said and daughter was at bedside saying patient weighs 124 kg on admission and she was discharged home weighing 140 kgs and has been telling riri CERVANTES that patient is retaining fluids but still discharged her anyway she said.Patient states while at home she was unable to keep anything down because every time she eats her abdomen hurts and she became nauseated. Seen and examined patient in the ER awake,alert and coherent,patient appears uncomfortable and crying.Patient has diffuse abdominal tenderness on palpation.Patient has an Ileostomy which is patent and normally functioning.Patient denies fever,chills,vomiting,chest pain,palpitation and cough.Patient states she has occasional shortness of breath.Latest V/S latest vital signs temperature 99, heart rate 98, blood pressure 106/61 saturation 100% on room air. Labs: WBC 5.6, neutrophils 72, hemoglobin 9, hematocrit 29 and platelet count 137. Lactic acid 2.0, glucose 129, total calcium 7.7 albumin 2.2 nine the rest of the chemistries normal. Chest x-ray result revealed no acute cardiopulmonary pathology is evident. CT abdomen without contrast result revealed markedly progressed gross ascites and mesenteric fat stranding with generalized anasarca, concerning for worsening fluid overload. Moderate bilateral pleural effusions. Nodular hepatic margins consistent with cirrhotic changes stable. Distended small bowel loops without transition point likely ileus/enteritis new from prior. Calcified gallbladder wall stable. Post Ileostomy status. Stable scattered colonic diverticulosis. Small hiatus hernia stable removal of pigtail catheter from sub splenic collection with resultant mild peritoneal thickening. No acute intra-abdominal abnormality otherwise. While in the ER patient received morphine 2 mg IV, Zofran 4 mg IV Rocephin 2 g IV NS 500 IV bolus and Reglan 10 mg IV.Patient is pending for NGT insertion.Er called and recommended to admit the patient. 10/08/2025: Patient was seen and examined this morning at bedside. The patient is accompanied by her daughter. The patient is on NG tube, which has very minimal output. The patient appears uncomfortable with the NG tube, and complains that it is bothering her and causing her pain. The patients daughter states the patient is not regularly using the restroom to urinate. The patient reports she believes she is retaining urine. We will order a bladder scan and follow up with the results. The patients abdomen appears distended upon physical examination. Patient reports tenderness bilaterally in the flank regions. Bowel sounds were hypoactive upon auscultation. No peripheral edema is noted. Heart sounds are heard, no murmurs appreciated. Interventional radiology has been called for possible paracentesis due to the patients ascites. The patient will be started on daily IV Lasix and Aldactone. We will continue to monitor her electrolytes daily, and correct accordingly. Pregabalin has been added to her pain regimen. The patient denies chest pain, shortness of breath, nausea, vomiting, fever, chills. 10/09/2025: She was evaluated at the bedside this morning. No overnight event. She is AAO x3. She do complain of mild abdominal discomfort on the right and left upper abdomen. She is hemodynamically stable. NG tube was taken out and started on clear liquid diet. Labs remarkable for WBC 3.2, hemoglobin 8.4, platelet 116, phosphorus 1.9, CRP 40.1, bicarbonate 2. 24 hour blood culture negative. She is on [id number] mg, furosemide 40 mg IV, duloxetine, quetiapine, pregabalin, sodium bicarbonate, midodrine, pantoprazole, Rocephin and PRN pain med. She do have a large ascites. Plan is to get ascitic tapping for both therapeutic and diagnostic. Surgery recommended to get HIDA scan for the possible recurrent acute cholecystitis. Psychiatry recommended to restart her on Cymbalta and Seroquel. For her hypo phosphatase Kaity, we have started her on Neutra-Phos times a day and give 1 dose of IV K-Phos15 millimole. GI on the board. Rest of the plan as discussed below. 10/10/2025: Patient is seen and evaluated in the room 306. She do complain of mild abdominal discomfort on the right and left upper abdomen. Her vitals are in the normal range. Her labs are in the normal range except for hemoglobin is 8.1, magnesium is 1.7. She had her HIDA scan done today and it showed acute cholecystitis. As her magnesium is low we replaced it. She is supposed to undergo paracentesis tomorrow. 10/11/2025: Patient is seen and evaluated in the room 306. She complained of mild abdominal pain. Her vitals are in the normal range. Her labs are normal except for hemoglobin is 8.2, WBC is 2.9, MCV is 101.2, RDW is 18.1, platelet is 108, magnesium is 1.5, phosphorus is 2, iron is 40, TIBC is 167,% saturation is 23.9. We gave her PPN. She underwent paracentesis today and they removed 1litre of fluid and they sent it for analysis and it is negative. Her blood culture is negative. Gram stain of ascitic fluid no organisms are seen. We stopped Phos Nak packet to IV potassium phosphate. We will repeat the phosphorus tomorrow. She is started on regular diet. General surgery recommended cholecystectomy on Saturday. So we will hold the lasix tomorrow. 10/12/2025: Patient is seen and evaluated in the room 306. She has no symptoms today. Her vitals are in the normal range. She is able to tolerate her diet. Her labs are normal except for hemoglobin 8.6, MCV is 100.4, RDW is 17.6, potassium is 3.1, glucose is 177. Her phosphorus is 1.9 So we added potassium phosphate 1 dose and we restarted Phos-Nak packet. As she is having surgery tomorrow we stopped her lasix and aldactone. We also reduced the dose of bicarbonate to QID to TID. 10/13/2025: Patient is seen and evaluated in the room 306. She has no symptoms today. Her vitals are in the normal range. Labs are normal except for WBC 4.5, hemoglobin 9.9, phosphorus 1.6. Her bile fluid culture showed no growth at 24 to 35 hours. She underwent laparoscopic cholecystectomy today. We also added potassium phosphate as her phosphorus is low and we will repeat her phosphorus level tomorrow. We resume her Lasix and Aldactone tomorrow. 10/14/2025: Patient is seen and evaluated in the room 306. Today is her post op day 1. She complained of mild abdominal pain today. Her vitals are in the normal range. Her labs are normal except for hemoglobin is 9, bicarbonate is 19, phosphorus is 1.8, magnesium is 1.7, AST 45. Her ascitic fluid culture showed no growth after 48 to 59 hours. She is on a clear liquid diet and she said that she is able to eat little but she slept off and when she woke up. She didn't eat the rest because her food got cold. Gastroenterology saw the patient and they recommended no intervention at this time and they advised to follow up with them after the discharge. General surgery recommended patient should remain overnight for continued observation and she can be discharged tomorrow. Today we resumed the dose of morphine and we restarted her lasix and aldactone. REVIEW OF SYSTEMS CONSTITUTIONAL: Denies fevers, chills, or night sweats. No unintentional weight loss reported. NEUROLOGICAL: Denies headache, amaurosis fugax, motor weakness, sensory deficit, vertigo/spinning sensation, gait abnormalities, or tremors. ENT: No hearing loss, otalgia, otorrhea, rhinitis, rhinorrhea, hoarseness, or sore throat. CARDIOVASCULAR: Denies any exertional angina, dyspnea on exertion, orthopnea, paroxysmal nocturnal dyspnea, palpitations, life-threatening arrhythmias, claudication. PULMONARY: Denies any shortness of breath, cough, phlegm/sputum, hemoptysis, pleuritic chest pain. SLEEP: Denies morning headaches, daytime somnolence or napping. Denies difficulty falling asleep, staying asleep, waking from sleep. Denies knowledge of snoring. GASTROINTESTINAL: Complains of abdominal distention, and abdominal pain. Denies any type of dysphagia to either liquids or solids. Denies vomiting, pyrosis, early satiety, diarrhea, constipation, or changes in stool consistency or caliber. Denies coffee-ground emesis, hematemesis, hematochezia, or melanotic stools. GENITOURINARY: Denies frequency, urgency, nocturia, hematuria or incontinence ( Storage/Irritative symptoms.) Low urinary stream, straining to void, urinary intermittency or hesitancy, splitting of the voiding stream, terminal dribbling. ENDOCRINOLOGIC: Denies polyuria, polydipsia, polyphagia or heat/cold intolerances. HEMATOLOGIC: Denies thrombophilia/previous clots, or coagulopathy/bleeding disorders. ONCOLOGIC: Denies personal history of malignancy. DERMATOLOGIC: Denies rashes or pruritus. PSYCHIATRIC: Denies any suicidal or homicidal ideation. Denies hallucinations. PHYSICAL EXAM GENERAL APPEARANCE: The patient is awake, alert, and oriented, in no acute cardiopulmonary distress. NEUROLOGICAL: Cranial nerves II-XII grossly intact. Motor is 5/5 in bilateral upper and lower extremities proximal to distal. No sensory deficits. HEENT: Face is symmetric. Pupils are equal and reactive. Extraocular movements are intact. NECK: Supple. No JVD. No thyromegaly. No submental, submandibular, pre- /postauricular, occipital or supraclavicular lymphadenopathy. CHEST: Normal chest expansion. No Telemetry. LUNGS: Absence of any rales, rhonchi or any wheezing. CARDIOVASCULAR: Regular. S1 and S2 normal. No appreciable rubs, murmurs or gallops. ABDOMEN: Positive hypoactive bowel sounds, diffuse tenderness x4 abdominal quadrants patient+ Ileostomy Soft and distended. Three incisions on the abdomen which were dressed. There is no rebound, voluntary guarding, or rigidity. : Deferred. No Dueñas. EXTREMITIES: Non-edematous and not cyanotic. No clubbing. Good capillary refill. SKIN: No skin breakdown. Vital Signs (last 8hr) Date Time Temp Pulse Resp B/P (MAP) Pulse Ox O2 Delivery O2 Flow Rate FiO2 10/14/25 12:35 99 Room Air* 0 21 10/14/25 11:24 98.1 76 18 144/66 100 Room Air 10/14/25 07:43 98.8 72 18 126/60 97 Room Air LABS: Laboratory: Test 10/14/25 10:44 10/14/25 05:10 Range/Units Whole Blood Glucose 89 70-110 MG/DL White Blood Count 4.9 4.8-10.8 K/uL Red Blood Count 2.81 L 4.00-5.50 MIL/uL Hemoglobin 9.0 L 12.0-16.0 g/dL Hematocrit 28.5 L 36-48 % Mean Corpuscular Volume 101.4 H 79-99 fL Mean Corpuscular Hemoglobin 32.0 27.0-33.0 pg Mean Corpuscular Hemoglobin Concent 31.6 L 32.0-36.0 g/dL Red Cell Distribution Width 17.6 H 11.0-15.5 % Platelet Count 159 130-400 K/uL Mean Platelet Volume 9.8 7.5-10.5 fL Nucleated Red Blood Cells 0.0 0.0-0.19 % Sodium Level 139 136-145 mmol/L Potassium Level 4.0 3.5-5.1 mmol/L Chloride Level 109 101-111 mmol/L Carbon Dioxide Level 19 L 21-32 mmol/L Blood Urea Nitrogen 9 7-18 mg/dL Creatinine 0.7 0.5-1.0 mg/dL Glomerular Filtration Rate Calc 101 >90 mL/min Random Glucose 93 70-105 mg/dL Total Calcium 7.8 L 8.5-10.1 mg/dL Phosphorus Level 1.8 L 2.5-4.9 mg/dL Magnesium Level 1.70 L 1.80-2.40 mg/dL Total Bilirubin 0.4 0.2-1.0 mg/dL Aspartate Amino Transf (AST/SGOT) 45 H 10-37 U/L Alanine Aminotransferase (ALT/SGPT) 12 12-78 U/L Alkaline Phosphatase 62 50-136 U/L Total Protein 5.6 L 6.0-8.3 g/dL Albumin 2.3 L 3.5-5.0 g/dL Current Medications Medications (Trade) Dose Ordered Sig/Gregory Route PRN Reason Start Time Stop Time Status Last Admin Dose Admin Albumin Human 50 ml @ 0 mls/hr AD IV 10/09/25 17:00 10/12/25 13:28 DC 10/09/25 21:30 50 MLS/HR Ceftriaxone Sodium 1 gm/ Sodium Chloride 50 ml @ 100 mls/hr Q24H IV 10/08/25 09:00 10/07/25 23:39 DC Ceftriaxone Sodium (ROCEphine 1G INJ) 1 gm Q24H IVPB 10/07/25 23:45 10/17/25 23:44 10/13/25 23:09 1 GM Dextrose (D50w) 50 ml AD PRN IV HYPOGLYCEMIA PROTOCOL 10/07/25 23:30 10/11/25 11:30 DC 10/11/25 05:19 50 ML Dicyclomine HCl (Bentyl 20mg Tab) 10 mg Q6H6 PO 10/08/25 12:00 11/07/25 11:59 10/14/25 11:57 10 MG Duloxetine HCl (CymbALTA 30 mg CAP) 20 mg BID PO 10/08/25 21:00 10/08/25 21:25 DC Duloxetine HCl (CymbALTA 30 mg CAP) 30 mg BID PO 10/08/25 22:00 11/07/25 21:59 10/14/25 09:32 30 MG Folic Acid (FOLic ACID 1 MG TABLET) 1 mg DAILY PO 10/09/25 09:00 11/08/25 08:59 10/14/25 09:33 1 MG Furosemide (LASix 40MG VIAL) 40 mg DAILY IV 10/15/25 09:00 11/14/25 08:59 Furosemide (LASix 40MG VIAL) 40 mg DAILY IV 10/09/25 09:00 10/12/25 13:27 DC 10/12/25 09:22 40 MG Gabapentin (NEURontin 100 mg CAP) 100 mg TID PO 10/13/25 21:00 11/12/25 20:59 10/14/25 14:27 100 MG Glucagon (Glucagon 1mg Kit) 1 mg AD PRN IM HYPOGLYCEMIA PROTOCOL 10/07/25 23:30 11/06/25 23:29 Insulin Human Regular (humuLIN R 100 UNIT/ML 3ML) INSULIN SLIDING SCAL... ACHS SQ 10/08/25 07:30 11/07/25 07:29 Lactated Ringer's 1,000 ml @ 50 mls/hr Q20H IV 10/07/25 23:30 10/08/25 10:45 DC 10/08/25 01:34 50 MLS/HR Magnesium Sulfate 50 ml @ 0 mls/hr PROTOCOL PRN IV MAG LEVEL BELOW 2.0 10/10/25 10:00 11/09/25 09:59 10/14/25 06:23 25 MLS/HR Metronidazole/ Sodium Chloride 100 ml @ 100 mls/hr Q8H IVPB 10/10/25 22:00 10/20/25 21:59 10/14/25 14:27 100 MLS/HR Midodrine (PROAMatine 5 MG TABLET) 10 mg Q8H PO 10/08/25 11:30 11/07/25 11:29 10/14/25 03:32 10 MG Morphine Sulfate (morPHINE 2MG SYG) 1 mg Q4H PRN IVP SEVERE PAIN (7-10) 10/14/25 14:00 10/21/25 13:59 Morphine Sulfate (morPHINE 2MG SYG) 2 mg Q4H PRN IV SEVERE PAIN (7-10) 10/07/25 23:30 10/13/25 02:29 DC 10/12/25 15:43 2 MG Morphine Sulfate (morPHINE 4MG SYG) 4 mg Q4H PRN IVP SEVERE PAIN (7-10) 10/13/25 18:00 10/14/25 10:32 DC 10/14/25 09:34 4 MG Ondansetron HCl (zoFRAN 4MG INJ) 4 mg Q6H PRN IV NAUSEA/VOMITING 10/07/25 23:30 11/06/25 23:29 10/12/25 07:26 4 MG Pantoprazole Sodium (PROTonix 40MG INJ) 40 mg DAILY IVP 10/08/25 09:00 11/07/25 08:59 10/14/25 09:33 40 MG Pharmacy Profile Note (Lace Assessment) 1 each AD MISC 10/08/25 10:30 10/08/25 10:33 DC Potassium Phosphate 250 ml @ 42 mls/hr PROTOCOL PRN IV PROTOCOL 10/13/25 10:00 10/13/25 10:01 DC Potassium Chloride 100 ml @ 100 mls/hr AD PRN IV POTASSIUM PROTOCOL 10/12/25 01:00 11/11/25 00:59 Potassium Chloride (K-Dur/Klor-Con 20meq) 20 meq AD PRN PO POTASSIUM PROTOCOL 10/12/25 01:00 11/11/25 00:59 10/12/25 23:48 20 MEQ Potassium Chloride (KCl 10% Elixir 20meq/15ml) 20 meq AD PRN PO POTASSIUM PROTOCOL 10/12/25 01:00 11/11/25 00:59 10/12/25 06:34 20 MEQ Potassium Phos/ Sodium Phos (PHOS-NaK PACKET 1 EACH) 1 packet TID PO 10/09/25 21:00 10/11/25 11:30 DC 10/10/25 20:31 1 PACKET Potassium Phos/ Sodium Phos (PHOS-NaK PACKET 1 EACH) 1 packet TID PO 10/12/25 21:00 10/14/25 20:59 10/14/25 14:27 1 PACKET Pregabalin (LYRica 25MG) 25 mg DAILYDINNER PO 10/08/25 17:00 11/07/25 16:59 10/13/25 17:46 25 MG Quetiapine Fumarate (SEROquel 25 mg TAB) 25 mg HS PO 10/08/25 21:00 11/07/25 20:59 10/13/25 20:45 25 MG Simethicone (Mylicon) 80 mg TID PO 10/13/25 21:00 11/12/25 20:59 10/14/25 09:33 80 MG Sodium Bicarbonate (Sodium Bicarbonate) 1,300 mg QID PO 10/08/25 13:00 10/12/25 13:26 DC 10/12/25 12:47 1,300 MG Sodium Bicarbonate (Sodium Bicarbonate) 1,300 mg TID PO 10/12/25 14:00 11/07/25 12:59 10/14/25 14:28 1,300 MG Spironolactone (Aldactone 25mg) 25 mg DAILY PO 10/15/25 09:00 11/14/25 08:59 Spironolactone (Aldactone 25mg) 25 mg DAILY PO 10/09/25 09:00 10/12/25 13:28 DC 10/12/25 09:22 25 MG Vitamin B Complex (Vitamin B-12) 1,000 mcg DAILY PO 10/09/25 09:00 11/08/25 08:59 10/14/25 09:33 1,000 [facility] / RADIOLOGY: [place] [id number] [address] IMAGING REPORT Signed PATIENT: DALLAS BUCHANAN MR#: [id number] : 1970 SEX: F AGE: 55 LOCATION: 3BH ORDER 1228 STATUS: ADM IN REPORT#: [id number] SERVICE 1230 REASON: ABDOMINAL DISTENTION, PARACETNESIS ORDERING PHYSICIAN: LISET DOUGLAS MD PROCEDURE: PARA ABD - US ABDOMINAL PARACENTESIS IR US ABDOMINAL PARACENTESIS IR REASON: ABDOMINAL DISTENTION, PARACETNESIS TECHNIQUE: Paracentesis was performed with ultrasound guidance. The puncture site was selected in the right upper quadrant and overlying skin prepped and draped in a sterile fashion. 1% Xylocaine infiltration was performed. Catheter was placed in the fluid using trocar technique. 1 L were removed. Fluid sample was submitted for laboratory evaluation. The patient showed no evidence of complication during the procedure. She tolerated procedure well. IMPRESSION: 1. Ultrasound-guided paracentesis. DICTATED BY: GREER FIORE MD DATE: 10/12/25840 ELECTRONICALLY SIGNED BY: GREER FIORE MD DATE: 10/12/25846 OPERATIVE REPORT Name: DALLAS BUCHANAN Acct: [id number] MR: [id number] : 1970 Admit Date: 10/07/[place] [address] Operative Note: DATE OF PROCEDURE: 10/13/25 SURGEON: SUSAN GANN MD PROCEDURE PERFORMED: Robotic cholecystectomy. PREOPERATIVE DIAGNOSIS: Acute cholecystitis POSTOPERATIVE DIAGNOSIS: same ANESTHESIA: General endotracheal. SURGEON: Susan Gann MD DEVICE LEFT IN PLACE: None. FLUIDS AND BLOOD PRODUCTS: Vitamin K 10 mg, albumin SPECIMENS REMOVED: Gallbladder. COMPLICATIONS: None immediate. PATIENT CONDITION: Stable. Blood loss: 20 cc, aspirated 1 L of ascites fluid DESCRIPTION OF PROCEDURE: The patient was brought to the operating room and placed on the operating table in a supine position. Once general endotracheal anesthesia was achieved the patient's abdomen is prepped and draped in sterile fashion. Had then proceeded to create a transverse incision at the left upper quadrant at hendrix's point and under direct visualization went through the abdominal wall with a 5 mm Optiview entered the abdominal cavity and obtain a pneumoperitoneum. After obtaining pneumoperitoneum we placed under direct visualization a 8 mm trocar in the left hemiabdomen to the left of the midline through the rectus muscle for the camera. There was significant amount of adhesions at the midline and right upper quadrant. Using the LigaSure device I then proceeded to take down the omental adhesions at the midline and right upper quadrant until we had enough room to place our instruments. Once all the adhesions were taken down we then proceeded to place an8 mm trocar in the right upper quadrant and then another one in the right flank. Switched out the 5 mm trocar in the left upper quadrant for an8 mm trocar. Place the patient in reverse Trendelenburg and rotated to the left. Brought the robot over top of the patient right and docked the robot. A significant amount of ascites around the gallbladder that was suctioned out approximately 1 L in total. There was significant amount of adhesions to the gallbladder that were taken down with the cautery with dissection. I then proceeded to retract the gallbladder from the fundus and infundibulum and started our dissection of the hilum. We bluntly dissected the hilum to expose the cystic duct and cystic artery and once we had a critical view for safety, which was confirmed with firefly technology. We proceeded to place two clips in the cystic duct proximally and distally. We divided and then did the same with our cystic artery. We then proceeded to remove the gallbladder off the liver bed using Bovie cautery. Once this was done, we then proceeded to evaluate the liver bed for hemostasis. We made sure there was no bile leaks or any bleeding. I then proceeded to bring the 5 mm Endo-Catch bag through the lateral right port. Placed the gallbladder within the bag and within the bag I proceeded to drain it. We then proceeded to remove the trocar in this area and dilated the muscle with a hemostat and proceeded to remove the gallbladder through this [facility] lateral port. I then closed the muscle with a running 2-0 V lock suture. We then proceeded to undocked our all her instruments and the robot. Removed all the trocars from the abdominal wall confirmed no bleeding. the skin incisions were closed using 4-0 Monocryl running subcuticular fashion and Dermabond. a sterile dressing was applied. The patient tolerated the procedure well. All counts correct x2 at the end of the procedure SUSAN GANN MD Oct 13, 2025 13:54 Electronically Signed by: SUSAN GANN MD10/13/25 1354 Electronically Co-Signed by: ASSESSMENT: Acute cholecystitis s/p robotic laparoscopic cholecystectomy POD (day 1) Severe volume overload with worsening ascites per CT POA s/p paracentesis Mesenteric fat stranding likely inflammatory/ edematous process per CT POA Ileus post abdominal surgery POA Low hemoglobin Hypophosphatemia Hyomagnesemia Ileostomy status POA Protein calorie malnutrition POA Moderate bilateral pleural effusion CP POA Chronic anemia POA Diabetes POA PLAN: Acute cholecystitis s/p robotic laparoscopic cholecystectomy POD (day 1) -patient currently on clear liquid diet. We will advance her diet as she tolerated. -procalcitonin less than 0.05, CRP 40.10. -Patient is on Rocephin (day 8) for empiric coverage. -Pregabalin has been added to the patients pain regimen. -surgery recommended to get HIDA scan and it showed acute cholecystitis. -She underwent laparoscopic cholecystectomy on 10/14/2025. -General surgery recommended patient should remain overnight for continued observation and she can be discharged tomorrow. -Gastroenterology saw the patient and they recommended no intervention at this time and they advised to follow up with them after the discharge. Severe volume overload with worsening ascites s/p paracentesis -Lasix 40 mg IV daily -25 mg Aldactone daily -Interventional radiology has been consulted for possible paracentesis. -She underwent paracentesis 10/11/2025 and they removed 1 litre of fluid. They sent the ascitic fluid for analysis and it is normal. - We resumed her lasix and aldactone. Ileus post abdominal surgery -CT abdomen revealed mildly distended small bowel loops without transition point, likely ileus/enteritis. -surgery is on board. -we will correct her electrolytes. Low hemoglobin - Today her hemoglobin is 9.0, MCV is 101.4, RDW is 17.6. -iron 40, TIBC is 167 -We will continue to monitor her labs. Hypophosphatemia -phosphorus 1.8. -Today we gave her a dose of potassium phosphate and we started her on Phos-Nak packet. - We will repeat his labs tomorrow. Hyomagnesemia - Today her magnesium level is 1.7. - She is on Magnesium protocol. -We will repeat her labs tomorrow. MDD POA Anxiety POA -tele psych was consulted. Recommended to start her on Cymbalta 20 mg b.i.d. and Seroquel 25 mg q.h.s.. Ileostomy status POA -Output form the ileostomy is 600 ml today. We gave her 1 bag of PPN and general surgery started her on clear liquid diet. Protonix daily for GI prophylaxis SCD's for DVT prophylaxis Home medications have been reconciled. ATTESTATION BY PHYSICIAN I have seen and examined the patient. I reviewed the documentation, medical decision making, and treatment plan as noted by the resident physician above. I agree with the findings and plan of care. BERTA Cole IV, MD, MD Oct 14, 2025 15:34
--- NOTE | 2025-10-14 15:37 | PN ---
This is a 55-year-old female postop day one for robotic cholecystectomy Interval history: This 55-year-old female seen in her room resting patient with expected postoperative discomfort Labs and vitals stable Patient is ambulating With the acute events reported at this time Physical exam General: Awake alert and oriented Heart: Regular rate and rhythm} Lungs: Clear to auscultation no distress Abdomen: [Soft, nontender, nondistended patient is clean and dry Assessment : This is a 55-year-old female status post cholecystectomy Plan: From surgical standpoint diet to be advanced Patient to continue ambulating Continue with IV antibiotics Possible discharge tomorrow Patient to remain overnight for continued observation Dr. Gann to be updated on patient's status Surgical case has been discussed with my supervising physician in the above plan was formulated and agreed upon We appreciate the hospitalist team for us to participate in patient's care. Greater than 45 minutes of time spent patient, reviewing chart, working on documentation Vitals/Labs Vital Signs Date Time Temp Pulse Resp B/P (MAP) Pulse Ox O2 Delivery O2 Flow Rate FiO2 10/14/25 12:35 99 Room Air* 0 21 10/14/25 11:24 98.1 76 18 144/66 Laboratory Tests 10/14/25 05:10 Medications Current Medications Morphine Sulfate 2 mg ONCE ONCE IVP Last administered on 10/07/25at 19:38; Start 10/07/25 at 19:00; Stop 10/07/25 at 19:01; Status DC Ondansetron HCl 4 mg ONCE ONCE IVP Last administered on 10/07/25at 19:38; Start 10/07/25 at 19:00; Stop 10/07/25 at 19:01; Status DC Ceftriaxone Sodium 2 gm ONCE ONCE IVPB Last administered on 10/07/25at 22:55; Start 10/07/25 at 21:30; Stop 10/07/25 at 21:31; Status DC Sodium Chloride 500 ml @ 0 mls/hr ONCE ONCE IV Last administered on 10/07/25at 22:54; Start 10/07/25 at 21:30; Stop 10/07/25 at 21:31; Status DC Metoclopramide HCl 10 mg ONCE ONCE IVP Last administered on 10/07/25at 22:55; Start 10/07/25 at 22:00; Stop 10/07/25 at 22:01; Status DC Ondansetron HCl 4 mg Q6H PRN IV Last administered on 10/12/25at 07:26; Start 10/07/25 at 23:30; Stop 11/06/25 at 23:29 Morphine Sulfate 2 mg Q4H PRN IV Last administered on 10/12/25at 15:43; Start 10/07/25 at 23:30; Stop 10/13/25 at 02:29; Status DC Ceftriaxone Sodium 1 gm/ Sodium Chloride 50 ml @ 100 mls/hr Q24H IV; Start 10/08/25 at 09:00; Stop 10/07/25 at 23:39; Status DC Pantoprazole Sodium 40 mg DAILY IVP Last administered on 10/14/25at 09:33; Start 10/08/25 at 09:00; Stop 11/07/25 at 08:59 Insulin Human Regular INSULIN SLIDING SCAL... ACHS SQ; Start 10/08/25 at 07:30; Stop 11/07/25 at 07:29 Dextrose 50 ml AD PRN IV Last administered on 10/11/25at 05:19; Start 10/07/25 at 23:30; Stop 10/11/25 at 11:30; Status DC Glucagon 1 mg AD PRN IM; Start 10/07/25 at 23:30; Stop 11/06/25 at 23:29 Lactated Ringer's 1,000 ml @ 50 mls/hr Q20H IV Last administered on 10/08/25at 01:34; Start 10/07/25 at 23:30; Stop 10/08/25 at 10:45; Status DC Ceftriaxone Sodium 1 gm Q24H IVPB Last administered on 10/13/25at 23:09; Start 10/07/25 at 23:45; Stop 10/17/25 at 23:44 Pharmacy Profile Note 1 each AD MISC; Start 10/08/25 at 10:30; Stop 10/08/25 at 10:33; Status DC Vitamin B Complex 1,000 mcg DAILY PO Last administered on 10/14/25at 09:33; Start 10/09/25 at 09:00; Stop 11/08/25 at 08:59 Dicyclomine HCl 10 mg Q6H6 PO Last administered on 10/14/25at 11:57; Start 10/08/25 at 12:00; Stop 11/07/25 at 11:59 Folic Acid 1 mg DAILY PO Last administered on 10/14/25at 09:33; Start 10/09/25 at 09:00; Stop 11/08/25 at 08:59 Quetiapine Fumarate 25 mg HS PO Last administered on 10/13/25at 20:45; Start 10/08/25 at 21:00; Stop 11/07/25 at 20:59 Sodium Bicarbonate 1,300 mg QID PO Last administered on 10/12/25at 12:47; Start 10/08/25 at 13:00; Stop 10/12/25 at 13:26; Status DC Midodrine 10 mg Q8H PO Last administered on 10/14/25at 03:32; Start 10/08/25 at 11:30; Stop 11/07/25 at 11:29 Pregabalin 25 mg DAILYDINNER PO Last administered on 10/13/25at 17:46; Start 10/08/25 at 17:00; Stop 11/07/25 at 16:59 Furosemide 40 mg DAILY IV Last administered on 10/12/25at 09:22; Start 10/09/25 at 09:00; Stop 10/12/25 at 13:27; Status DC Spironolactone 25 mg DAILY PO Last administered on 10/12/25at 09:22; Start 10/09/25 at 09:00; Stop 10/12/25 at 13:28; Status DC Duloxetine HCl 20 mg BID PO; Start 10/08/25 at 21:00; Stop 10/08/25 at 21:25; Status DC Duloxetine HCl 30 mg BID PO Last administered on 10/14/25at 09:32; Start 10/08/25 at 22:00; Stop 11/07/25 at 21:59 Potassium Phos/ Sodium Phos 1 packet TID PO Last administered on 10/10/25at 20:31; Start 10/09/25 at 21:00; Stop 10/11/25 at 11:30; Status DC Potassium Phosphate 250 ml @ 42 mls/hr PROTOCOL ONCE IV Last administered on 10/09/25at 22:28; Start 10/09/25 at 16:30; Stop 10/09/25 at 22:27; Status DC Albumin Human 50 ml @ 0 mls/hr AD IV Last administered on 12/6/25at 21:30; Start 10/09/25 at 17:00; Stop 10/12/25 at 13:28; Status DC Magnesium Sulfate 50 ml @ 0 mls/hr PROTOCOL PRN IV Last administered on 10/14/25at 06:23; Start 10/10/25 at 10:00; Stop 11/09/25 at 09:59 Metronidazole/ Sodium Chloride 100 ml @ 100 mls/hr Q8H IVPB Last administered on 10/14/25at 14:27; Start 10/10/25 at 22:00; Stop 10/20/25 at 21:59 Potassium Phosphate 250 ml @ 42 mls/hr PROTOCOL ONCE IV; Start 10/11/25 at 11:30; Stop 10/11/25 at 17:27; Status DC Multivitamins/ Minerals 10 ml/ Chromium/Copper/ Manganese/Zinc 3 ml/Amino Acids/ Electrolytes/ Dextrose 2,000 ml @ 60 mls/hr ONCE ONCE IV Last administered on 10/11/25at 12:30; Start 10/11/25 at 12:30; Stop 10/12/25 at 21:49; Status DC Potassium Chloride 100 ml @ 100 mls/hr AD PRN IV; Start 10/12/25 at 01:00; Stop 11/11/25 at 00:59 Potassium Chloride 20 meq AD PRN PO Last administered on 10/12/25at 06:34; Start 10/12/25 at 01:00; Stop 11/11/25 at 00:59 Potassium Chloride 20 meq AD PRN PO Last administered on 10/12/25at 23:48; Start 10/12/25 at 01:00; Stop 11/11/25 at 00:59 Sodium Bicarbonate 1,300 mg TID PO Last administered on 10/14/25at 14:28; Start 10/12/25 at 14:00; Stop 11/07/25 at 12:59 Potassium Phosphate 250 ml @ 42 mls/hr PROTOCOL ONCE IV; Start 10/12/25 at 14:30; Stop 10/12/25 at 20:27; Status DC Potassium Phos/ Sodium Phos 1 packet TID PO Last administered on 10/14/25at 14:27; Start 10/12/25 at 21:00; Stop 10/14/25 at 20:59 Potassium Phosphate 250 ml @ 42 mls/hr PROTOCOL PRN IV; Start 10/13/25 at 10:00; Stop 10/13/25 at 10:01; Status DC Potassium Phosphate 250 ml @ 42 mls/hr PROTOCOL ONCE IV; Start 10/13/25 at 10:00; Stop 10/13/25 at 10:10; Status DC Sodium Phosphate 15 mmol/Sodium Chloride 250 ml @ 62.5 mls/hr PROTOCOL ONCE IV Last administered on 10/13/25at 11:01; Start 10/13/25 at 10:30; Stop 10/13/25 at 15:07; Status DC Bupivacaine HCl 5 mg STK-MED ONCE .ROUTE; Start 10/13/25 at 10:52; Stop 10/13/25 at 10:52; Status DC Indocyanine Green 25 mg STK-MED ONCE IJ; Start 10/13/25 at 11:43; Stop 10/13/25 at 11:43; Status DC Rocuronium [place] 50 mg STK-MED ONCE .ROUTE; Start 10/13/25 at 12:03; Stop 10/13/25 at 12:03; Status DC Phytonadione 10 mg/Sodium Chloride 51 ml @ 100 mls/hr ONCE ONCE IVPB; Start 10/13/25 at 13:30; Stop 10/13/25 at 15:07; Status DC Albumin Human 250 ml @ As Directed STK-MED ONCE IV; Start 10/13/25 at 13:18; Stop 10/13/25 at 13:18; Status DC Indocyanine Green 25 mg STK-MED ONCE IJ Last administered on 10/13/25at 12:05; Start 10/13/25 at 12:05; Stop 10/13/25 at 13:31; Status DC Bupivacaine HCl 75 mg STK-MED ONCE IJ Last administered on 10/13/25at 12:51; Start 10/13/25 at 12:51; Stop 10/13/25 at 13:31; Status DC Fentanyl Citrate 100 mcg STK-MED ONCE .ROUTE Last administered on 10/13/25at 14:13; Start 10/13/25 at 14:10; Stop 10/13/25 at 14:10; Status DC Simethicone 80 mg TID PO Last administered on 10/14/25at 09:33; Start 10/13/25 at 21:00; Stop 11/12/25 at 20:59 Gabapentin 100 mg TID PO Last administered on 10/14/25at 14:27; Start 10/13/25 at 21:00; Stop 11/12/25 at 20:59 Propofol 200 mg STK-MED ONCE IV; Start 10/13/25 at 12:01; Stop 10/13/25 at 15:43; Status DC Midazolam HCl 2 mg STK-MED ONCE .ROUTE; Start 10/13/25 at 12:01; Stop 10/13/25 at 15:43; Status DC Fentanyl Citrate 100 mcg STK-MED ONCE .ROUTE; Start 10/13/25 at 12:02; Stop 10/13/25 at 15:43; Status DC Fentanyl Citrate 100 mcg STK-MED ONCE .ROUTE; Start 10/13/25 at 12:02; Stop 10/13/25 at 15:43; Status DC Ondansetron HCl 4 mg STK-MED ONCE .ROUTE; Start 10/13/25 at 13:55; Stop 10/13/25 at 15:43; Status DC Fentanyl Citrate 100 mcg STK-MED ONCE .ROUTE; Start 10/13/25 at 13:57; Stop 10/13/25 at 15:43; Status DC Morphine Sulfate 4 mg Q4H PRN IVP Last administered on 10/14/25at 09:34; Start 10/13/25 at 18:00; Stop 10/14/25 at 10:32; Status DC Morphine Sulfate 1 mg Q4H PRN IVP; Start 10/14/25 at 14:00; Stop 10/21/25 at 13:59 Spironolactone 25 mg DAILY PO; Start 10/15/25 at 09:00; Stop 11/14/25 at 08:59 Furosemide 40 mg DAILY IV; Start 10/15/25 at 09:00; Stop 11/14/25 at 08:59 BENEDICTO OBRIEN Jr. PAC Oct 14, 2025 15:37
[2025-10-15 03:52] VITALS: BP 120/65; PULSE 77; RESP 17; TEMP 98
[2025-10-15 05:20] LABS: NUCLEATED RED BLOOD CELLS 0.0 % (0.0-0.19); PLATELET COUNT (AUTO) 137.0 K/uL (130-400); RED BLOOD CELL COUNT(AUTO) 2.97 MIL/uL (4.00-5.50); RED CELL DISTRIBUTION WIDTH 17.9 % (11.0-15.5); WHITE BLOOD COUNT (AUTO) 3.3 K/uL (4.8-10.8)
[2025-10-15 05:47] LABS: CREATININE 0.7 mg/dL (0.5-1.0); GLOMERULAR FILTR. RATE CALC 101.0 mL/min (>90); GLUCOSE,RANDOM 89.0 mg/dL (70-105); PHOSPHORUS 1.8 mg/dL (2.5-4.9); SODIUM SERUM 140.0 mmol/L (136-145); UREA NITROGEN, BLOOD 9.0 mg/dL (7-18)
[2025-10-15 08:00] VITALS: BP 120/58; PULSE 74; RESP 20; TEMP 98; O2SAT 98
[2025-10-15] MEDS: SPIRONOLACTONE 25 MG TAB PO SCH (08:21)
[2025-10-15] MEDS: [UNRECOGNIZED DRUG - OTHER] IV ONE (11:11)
[2025-10-15] MEDS: NS IV ONE (11:11)
[2025-10-15 12:00] VITALS: BP 136/74; PULSE 80; RESP 20; TEMP 98.1
--- NOTE | 2025-10-15 12:55 | PN ---
GASTROENTEROLOGY PROGRESS NOTE Date of Visit: Oct 15, 2025 Time of Visit: 12:55 Events / Notes: this is a 55-year-old female who is known to services with past medical history of diabetes, cirrhosis, esophageal varices, DVT, gastritis, peritonitis with robotic sigmoid resection with takedown of colovesical fistula and ileostomy who presented due to abdominal pain and distention. She has been having frequent readmissions. She was recently admitted with concern for GI bleed and ostomy however no stigmata of bleeding from esophageal varices. Review of Systems: CONSTITUTIONAL: No malaise or change in sensation of wellbeing. ENMT: No rhinorrhea, otorrhea, sinus pain, ear ache. CARDIOVASCULAR: No angina, palpitations, orthopnea or paroxysmal dyspnea. RESPIRATORY: No SOB. GASTROINTESTINAL: No abdominal pain, nausea, vomiting, diarrhea, hematemesis, melena or change in the patient's habitual bowel movements consistency/number. GENITOURINARY: No dysuria, hematuria or change in bladder continence. MUSCULOSKELETAL: No new muscle pain or decrease in muscular strength. No new joint swelling, redness or tenderness. SKIN: No new rash. Physical Exam: GEN: Awake, alert, oriented in person, time and place, and in no acute distress. HEENT: No sinus tenderness. Tympanic membranes were not examined. No rhinorrhea. Oral pharyngeal mucosa is pink, moist and within normal limits. Neck is supple with no cervical lymphadenopathy, thyromegaly or JVD. CHEST: Inspection, palpation and percussion of the chest were unremarkable. Lung auscultation revealed normal breath sounds bilaterally. CARDIAC: PMI is within normal limits. Heart sounds are regular. Normal S1, S2. No gallop or murmur. ABD: Soft, non-tender and not distended. No peritoneal signs on palpation. No organomegaly. Normal bowel sounds. EXT: No cyanosis or clubbing. No edema. SKIN: Intact. No rashes. JOINTS: No evidence of synovitis or acute arthritis. NEURO: Alert and oriented to name, place and person. Cranial nerve examination is unremarkable. No focal motor deficits. Normal speech. Gait is normal. Strength is normal. Vital Signs (last 8hr) Date Time Temp Pulse Resp B/P (MAP) Pulse Ox O2 Delivery O2 Flow Rate FiO2 10/15/25 08:00 98.1 74 20 120/58 98 Room Air Laboratory: [ ] Laboratory: Test 10/15/25 12:06 10/15/25 04:59 10/14/25 05:10 Range/Units Whole Blood Glucose 87 70-110 MG/DL White Blood Count 3.3 #L 4.8-10.8 K/uL Red Blood Count 2.97 L 4.00-5.50 MIL/uL Hemoglobin 9.5 L 12.0-16.0 g/dL Hematocrit 30.0 L 36-48 % Mean Corpuscular Volume 101.0 H 79-99 fL Mean Corpuscular Hemoglobin 32.0 27.0-33.0 pg Mean Corpuscular Hemoglobin Concent 31.7 L 32.0-36.0 g/dL Red Cell Distribution Width 17.9 H 11.0-15.5 % Platelet Count 137 130-400 K/uL Mean Platelet Volume 9.7 7.5-10.5 fL Nucleated Red Blood Cells 0.0 0.0-0.19 % Sodium Level 140 136-145 mmol/L Potassium Level 4.1 3.5-5.1 mmol/L Chloride Level 109 101-111 mmol/L Carbon Dioxide Level 23 21-32 mmol/L Blood Urea Nitrogen 9 7-18 mg/dL Creatinine 0.7 0.5-1.0 mg/dL Glomerular Filtration Rate Calc 101 >90 mL/min Random Glucose 89 70-105 mg/dL Total Calcium 7.8 L 8.5-10.1 mg/dL Phosphorus Level 1.8 L 2.5-4.9 mg/dL Magnesium Level 2.00 1.80-2.40 mg/dL Total Bilirubin 0.4 0.2-1.0 mg/dL Aspartate Amino Transf (AST/SGOT) 45 H 10-37 U/L Alanine Aminotransferase (ALT/SGPT) 12 12-78 U/L Alkaline Phosphatase 62 50-136 U/L Total Protein 5.6 L 6.0-8.3 g/dL Albumin 2.3 L 3.5-5.0 g/dL Current Medications Medications (Trade) Dose Ordered Sig/Gregory Route PRN Reason Start Time Stop Time Status Last Admin Dose Admin Albumin Human 50 ml @ 0 mls/hr AD IV 10/09/25 17:00 10/12/25 13:28 DC 10/09/25 21:30 50 MLS/HR Ceftriaxone Sodium 1 gm/ Sodium Chloride 50 ml @ 100 mls/hr Q24H IV 10/08/25 09:00 10/07/25 23:39 DC Ceftriaxone Sodium (ROCEphine 1G INJ) 1 gm Q24H IVPB 10/07/25 23:45 10/17/25 23:44 10/15/25 00:07 1 GM Dextrose (D50w) 50 ml AD PRN IV HYPOGLYCEMIA PROTOCOL 10/07/25 23:30 10/11/25 11:30 DC 10/11/25 05:19 50 ML Dicyclomine HCl (Bentyl 20mg Tab) 10 mg Q6H6 PO 10/08/25 12:00 11/07/25 11:59 10/15/25 12:33 10 MG Duloxetine HCl (CymbALTA 30 mg CAP) 20 mg BID PO 10/08/25 21:00 10/08/25 21:25 DC Duloxetine HCl (CymbALTA 30 mg CAP) 30 mg BID PO 10/08/25 22:00 11/07/25 21:59 10/15/25 08:22 30 MG Folic Acid (FOLic ACID 1 MG TABLET) 1 mg DAILY PO 10/09/25 09:00 11/08/25 08:59 10/15/25 08:22 1 MG Furosemide (LASix 40MG VIAL) 40 mg DAILY IV 10/15/25 09:00 11/14/25 08:59 10/15/25 08:22 40 MG Furosemide (LASix 40MG VIAL) 40 mg DAILY IV 10/09/25 09:00 10/12/25 13:27 DC 10/12/25 09:22 40 MG Gabapentin (NEURontin 100 mg CAP) 100 mg TID PO 10/13/25 21:00 11/12/25 20:59 10/15/25 08:22 100 MG Glucagon (Glucagon 1mg Kit) 1 mg AD PRN IM HYPOGLYCEMIA PROTOCOL 10/07/25 23:30 11/06/25 23:29 Insulin Human Regular (humuLIN R 100 UNIT/ML 3ML) INSULIN SLIDING SCAL... ACHS SQ 10/08/25 07:30 11/07/25 07:29 Lactated Ringer's 1,000 ml @ 50 mls/hr Q20H IV 10/07/25 23:30 10/08/25 10:45 DC 10/08/25 01:34 50 MLS/HR Magnesium Sulfate 50 ml @ 0 mls/hr PROTOCOL PRN IV MAG LEVEL BELOW 2.0 10/10/25 10:00 11/09/25 09:59 10/14/25 06:23 25 MLS/HR Metronidazole/ Sodium Chloride 100 ml @ 100 mls/hr Q8H IVPB 10/10/25 22:00 10/20/25 21:59 10/15/25 06:08 100 MLS/HR Midodrine (PROAMatine 5 MG TABLET) 10 mg Q8H PO 10/08/25 11:30 11/07/25 11:29 10/15/25 11:11 10 MG Morphine Sulfate (morPHINE 2MG SYG) 1 mg Q4H PRN IVP SEVERE PAIN (7-10) 10/14/25 14:00 10/21/25 13:59 10/14/25 15:47 1 MG Morphine Sulfate (morPHINE 2MG SYG) 2 mg Q4H PRN IV SEVERE PAIN (7-10) 10/07/25 23:30 10/13/25 02:29 DC 10/12/25 15:43 2 MG Morphine Sulfate (morPHINE 4MG SYG) 4 mg Q4H PRN IVP SEVERE PAIN (7-10) 10/13/25 18:00 10/14/25 10:32 DC 10/14/25 09:34 4 MG Ondansetron HCl (zoFRAN 4MG INJ) 4 mg Q6H PRN IV NAUSEA/VOMITING 10/07/25 23:30 11/06/25 23:29 10/12/25 07:26 4 MG Pantoprazole Sodium (PROTonix 40MG INJ) 40 mg DAILY IVP 10/08/25 09:00 11/07/25 08:59 10/15/25 08:22 40 MG Pharmacy Profile Note (Lace Assessment) 1 each AD MISC 10/08/25 10:30 10/08/25 10:33 DC Potassium Phosphate 250 ml @ 42 mls/hr PROTOCOL PRN IV PROTOCOL 10/13/25 10:00 10/13/25 10:01 DC Potassium Chloride 100 ml @ 100 mls/hr AD PRN IV POTASSIUM PROTOCOL 10/12/25 01:00 11/11/25 00:59 Potassium Chloride (K-Dur/Klor-Con 20meq) 20 meq AD PRN PO POTASSIUM PROTOCOL 10/12/25 01:00 11/11/25 00:59 10/12/25 23:48 20 MEQ Potassium Chloride (KCl 10% Elixir 20meq/15ml) 20 meq AD PRN PO POTASSIUM PROTOCOL 10/12/25 01:00 11/11/25 00:59 10/12/25 06:34 20 MEQ Potassium Phos/ Sodium Phos (PHOS-NaK PACKET 1 EACH) 1 packet TID PO 10/15/25 14:00 11/14/25 13:59 Potassium Phos/ Sodium Phos (PHOS-NaK PACKET 1 EACH) 1 packet TID PO 10/09/25 21:00 10/11/25 11:30 DC 10/10/25 20:31 1 PACKET Potassium Phos/ Sodium Phos (PHOS-NaK PACKET 1 EACH) 1 packet TID PO 10/12/25 21:00 10/14/25 20:59 DC 10/14/25 14:27 1 PACKET Pregabalin (LYRica 25MG) 25 mg DAILYDINNER PO 10/08/25 17:00 11/07/25 16:59 10/14/25 17:07 25 MG Quetiapine Fumarate (SEROquel 25 mg TAB) 25 mg HS PO 10/08/25 21:00 11/07/25 20:59 10/14/25 20:57 25 MG Simethicone (Mylicon) 80 mg TID PO 10/13/25 21:00 11/12/25 20:59 10/15/25 08:22 80 MG Sodium Bicarbonate (Sodium Bicarbonate) 1,300 mg QID PO 10/08/25 13:00 10/12/25 13:26 DC 10/12/25 12:47 1,300 MG Sodium Bicarbonate (Sodium Bicarbonate) 1,300 mg TID PO 10/12/25 14:00 11/07/25 12:59 10/15/25 08:22 1,300 MG Spironolactone (Aldactone 25mg) 25 mg DAILY PO 10/15/25 09:00 11/14/25 08:59 10/15/25 08:21 25 MG Spironolactone (Aldactone 25mg) 25 mg DAILY PO 10/09/25 09:00 10/12/25 13:28 DC 10/12/25 09:22 25 MG Vitamin B Complex (Vitamin B-12) 1,000 mcg DAILY PO 10/09/25 09:00 11/08/25 08:59 10/15/25 08:21 1,000 MCG Diagnostics / Radiology: [COPY/PASTE HERE IF NO REPORTS PLEASE DELETE SECTION] Assessment: Cirrhosis DM Ileostomy status Plan: No GI intervention warranted at this time Continue GI prophylaxis Advance diet as tolerated Avoid NSAIDs Antireflux measures Monitor H&H and transfuse as needed Call with questions, concerns or change in clinical status Patient to follow-up at clinic post discharge Thank you for this consult STEPHEN THAO TOUR OPERATOR Oct 15, 2025 12:55
--- NOTE | 2025-10-15 14:57 | PN ---
This is a 55-year-old female postop day two for robotic cholecystectomy by Dr. Gann Interval history: This 55-year-old female seen in her room resting Labs and vitals stable Patient continues to have output from ostomy Patient continues with diuretics Patient's pain controlled but experiencing postprandial bloatedness which is a common finding after cholecystectomy Physical exam General: Awake alert and oriented Heart: Regular rate and rhythm} Lungs: Clear to auscultation no distress Abdomen: [Soft, nontender, nondistended Incisions clean and dry Assessment : This is a 55-year-old female status post cholecystectomy by Dr. Gann Plan: From surgical standpoint patient is cleared for discharge for once cleared medically To avoid fluid overload recommendation from surgical standpoint we will be for diuretics upon discharge Patient to follow up in 1-[address] Gann is office Nursing report any further acute events Surgical case has been discussed with my supervising physician in the above plan was formulated and agreed upon We appreciate the hospitalist team for us to participate in patient's care. Greater than 45 minutes of time spent patient, reviewing chart, working on documentation Vitals/Labs Vital Signs Date Time Temp Pulse Resp B/P (MAP) Pulse Ox O2 Delivery O2 Flow Rate FiO2 10/15/25 12:00 98.1 80 20 136/74 100 Room Air 10/15/25 08:00 0 21 Laboratory Tests 10/15/25 04:59 Medications Current Medications Morphine Sulfate 2 mg ONCE ONCE IVP Last administered on 10/07/25at 19:38; Start 10/07/25 at 19:00; Stop 10/07/25 at 19:01; Status DC Ondansetron HCl 4 mg ONCE ONCE IVP Last administered on 10/07/25at 19:38; Start 10/07/25 at 19:00; Stop 10/07/25 at 19:01; Status DC Ceftriaxone Sodium 2 gm ONCE ONCE IVPB Last administered on 10/07/25at 22:55; Start 10/07/25 at 21:30; Stop 10/07/25 at 21:31; Status DC Sodium Chloride 500 ml @ 0 mls/hr ONCE ONCE IV Last administered on 10/07/25at 22:54; Start 10/07/25 at 21:30; Stop 10/07/25 at 21:31; Status DC Metoclopramide HCl 10 mg ONCE ONCE IVP Last administered on 10/07/25at 22:55; Start 10/07/25 at 22:00; Stop 10/07/25 at 22:01; Status DC Ondansetron HCl 4 mg Q6H PRN IV Last administered on 10/12/25at 07:26; Start 10/07/25 at 23:30; Stop 11/06/25 at 23:29 Morphine Sulfate 2 mg Q4H PRN IV Last administered on 10/12/25at 15:43; Start 10/07/25 at 23:30; Stop 10/13/25 at 02:29; Status DC Ceftriaxone Sodium 1 gm/ Sodium Chloride 50 ml @ 100 mls/hr Q24H IV; Start 10/08/25 at 09:00; Stop 10/07/25 at 23:39; Status DC Pantoprazole Sodium 40 mg DAILY IVP Last administered on 10/15/25at 08:22; Start 10/08/25 at 09:00; Stop 11/07/25 at 08:59 Insulin Human Regular INSULIN SLIDING SCAL... ACHS SQ; Start 10/08/25 at 07:30; Stop 11/07/25 at 07:29 Dextrose 50 ml AD PRN IV Last administered on 10/11/25at 05:19; Start 10/07/25 at 23:30; Stop 10/11/25 at 11:30; Status DC Glucagon 1 mg AD PRN IM; Start 10/07/25 at 23:30; Stop 11/06/25 at 23:29 Lactated Ringer's 1,000 ml @ 50 mls/hr Q20H IV Last administered on 10/08/25at 01:34; Start 10/07/25 at 23:30; Stop 10/08/25 at 10:45; Status DC Ceftriaxone Sodium 1 gm Q24H IVPB Last administered on 10/15/25at 00:07; Start 10/07/25 at 23:45; Stop 10/17/25 at 23:44 Pharmacy Profile Note 1 each AD MISC; Start 10/08/25 at 10:30; Stop 10/08/25 at 10:33; Status DC Vitamin B Complex 1,000 mcg DAILY PO Last administered on 10/15/25at 08:21; Start 10/09/25 at 09:00; Stop 11/08/25 at 08:59 Dicyclomine HCl 10 mg Q6H6 PO Last administered on 10/15/25at 12:33; Start 10/08/25 at 12:00; Stop 11/07/25 at 11:59 Folic Acid 1 mg DAILY PO Last administered on 10/15/25at 08:22; Start 10/09/25 at 09:00; Stop 11/08/25 at 08:59 Quetiapine Fumarate 25 mg HS PO Last administered on 10/14/25at 20:57; Start 10/08/25 at 21:00; Stop 11/07/25 at 20:59 Sodium Bicarbonate 1,300 mg QID PO Last administered on 10/12/25at 12:47; Start 10/08/25 at 13:00; Stop 10/12/25 at 13:26; Status DC Midodrine 10 mg Q8H PO Last administered on 10/15/25at 11:11; Start 10/08/25 at 11:30; Stop 11/07/25 at 11:29 Pregabalin 25 mg DAILYDINNER PO Last administered on 10/14/25at 17:07; Start 10/08/25 at 17:00; Stop 11/07/25 at 16:59 Furosemide 40 mg DAILY IV Last administered on 10/12/25at 09:22; Start 10/09/25 at 09:00; Stop 10/12/25 at 13:27; Status DC Spironolactone 25 mg DAILY PO Last administered on 10/12/25at 09:22; Start 10/09/25 at 09:00; Stop 10/12/25 at 13:28; Status DC Duloxetine HCl 20 mg BID PO; Start 10/08/25 at 21:00; Stop 10/08/25 at 21:25; Status DC Duloxetine HCl 30 mg BID PO Last administered on 10/15/25at 08:22; Start 10/08/25 at 22:00; Stop 11/07/25 at 21:59 Potassium Phos/ Sodium Phos 1 packet TID PO Last administered on 10/10/25at 20:31; Start 10/09/25 at 21:00; Stop 10/11/25 at 11:30; Status DC Potassium Phosphate 250 ml @ 42 mls/hr PROTOCOL ONCE IV Last administered on 10/09/25at 22:28; Start 10/09/25 at 16:30; Stop 10/09/25 at 22:27; Status DC Albumin Human 50 ml @ 0 mls/hr AD IV Last administered on 10/09/25at 21:30; Start 10/09/25 at 17:00; Stop 10/12/25 at 13:28; Status DC Magnesium Sulfate 50 ml @ 0 mls/hr PROTOCOL PRN IV Last administered on 10/14/25at 06:23; Start 10/10/25 at 10:00; Stop 11/09/25 at 09:59 Metronidazole/ Sodium Chloride 100 ml @ 100 mls/hr Q8H IVPB Last administered on 10/15/25at 14:18; Start 10/10/25 at 22:00; Stop 10/20/25 at 21:59 Potassium Phosphate 250 ml @ 42 mls/hr PROTOCOL ONCE IV; Start 10/11/25 at 11:30; Stop 10/11/25 at 17:27; Status DC Multivitamins/ Minerals 10 ml/ Chromium/Copper/ Manganese/Zinc 3 ml/Amino Acids/ Electrolytes/ Dextrose 2,000 ml @ 60 mls/hr ONCE ONCE IV Last administered on 10/11/25at 12:30; Start 10/11/25 at 12:30; Stop 10/12/25 at 21:49; Status DC Potassium Chloride 100 ml @ 100 mls/hr AD PRN IV; Start 10/12/25 at 01:00; Stop 11/11/25 at 00:59 Potassium Chloride 20 meq AD PRN PO Last administered on 10/12/25at 06:34; Start 10/12/25 at 01:00; Stop 11/11/25 at 00:59 Potassium Chloride 20 meq AD PRN PO Last administered on 10/12/25at 23:48; Start 10/12/25 at 01:00; Stop 11/11/25 at 00:59 Sodium Bicarbonate 1,300 mg TID PO Last administered on 10/15/25at 14:17; Start 10/12/25 at 14:00; Stop 11/07/25 at 12:59 Potassium Phosphate 250 ml @ 42 mls/hr PROTOCOL ONCE IV; Start 10/12/25 at 14:30; Stop 10/12/25 at 20:27; Status DC Potassium Phos/ Sodium Phos 1 packet TID PO Last administered on 10/14/25at 14:27; Start 10/12/25 at 21:00; Stop 10/14/25 at 20:59; Status DC Potassium Phosphate 250 ml @ 42 mls/hr PROTOCOL PRN IV; Start 10/13/25 at 10:00; Stop 10/13/25 at 10:01; Status DC Potassium Phosphate 250 ml @ 42 mls/hr PROTOCOL ONCE IV; Start 10/13/25 at 10:00; Stop 10/13/25 at 10:10; Status DC Sodium Phosphate 15 mmol/Sodium Chloride 250 ml @ 62.5 mls/hr PROTOCOL ONCE IV Last administered on 10/13/25at 11:01; Start 10/13/25 at 10:30; Stop 10/13/25 at 15:07; Status DC Bupivacaine HCl 5 mg STK-MED ONCE .ROUTE; Start 10/13/25 at 10:52; Stop 10/13/25 at 10:52; Status DC Indocyanine Green 25 mg STK-MED ONCE IJ; Start 10/13/25 at 11:43; Stop 10/13/25 at 11:43; Status DC Rocuronium [place] 50 mg STK-MED ONCE .ROUTE; Start 10/13/25 at 12:03; Stop 10/13/25 at 12:03; Status DC Phytonadione 10 mg/Sodium Chloride 51 ml @ 100 mls/hr ONCE ONCE IVPB; Start 10/13/25 at 13:30; Stop 10/13/25 at 15:07; Status DC Albumin Human 250 ml @ As Directed STK-MED ONCE IV; Start 10/13/25 at 13:18; Stop 10/13/25 at 13:18; Status DC Indocyanine Green 25 mg STK-MED ONCE IJ Last administered on 10/13/25at 12:05; Start 10/13/25 at 12:05; Stop 10/13/25 at 13:31; Status DC Bupivacaine HCl 75 mg STK-MED ONCE IJ Last administered on 10/13/25at 12:51; Start 10/13/25 at 12:51; Stop 10/13/25 at 13:31; Status DC Fentanyl Citrate 100 mcg STK-MED ONCE .ROUTE Last administered on 10/13/25at 14:13; Start 10/13/25 at 14:10; Stop 10/13/25 at 14:10; Status DC Simethicone 80 mg TID PO Last administered on 10/15/25at 14:17; Start 10/13/25 at 21:00; Stop 11/12/25 at 20:59 Gabapentin 100 mg TID PO Last administered on 10/15/25at 14:17; Start 10/13/25 at 21:00; Stop 11/12/25 at 20:59 Propofol 200 mg STK-MED ONCE IV; Start 10/13/25 at 12:01; Stop 10/13/25 at 15:43; Status DC Midazolam HCl 2 mg STK-MED ONCE .ROUTE; Start 10/13/25 at 12:01; Stop 10/13/25 at 15:43; Status DC Fentanyl Citrate 100 mcg STK-MED ONCE .ROUTE; Start 10/13/25 at 12:02; Stop 10/13/25 at 15:43; Status DC Fentanyl Citrate 100 mcg STK-MED ONCE .ROUTE; Start 10/13/25 at 12:02; Stop 10/13/25 at 15:43; Status DC Ondansetron HCl 4 mg STK-MED ONCE .ROUTE; Start 10/13/25 at 13:55; Stop 10/13/25 at 15:43; Status DC Fentanyl Citrate 100 mcg STK-MED ONCE .ROUTE; Start 10/13/25 at 13:57; Stop 10/13/25 at 15:43; Status DC Morphine Sulfate 4 mg Q4H PRN IVP Last administered on 10/14/25at 09:34; Start 10/13/25 at 18:00; Stop 10/14/25 at 10:32; Status DC Morphine Sulfate 1 mg Q4H PRN IVP Last administered on 10/15/25at 14:26; Start 10/14/25 at 14:00; Stop 10/21/25 at 13:59 Spironolactone 25 mg DAILY PO Last administered on 10/15/25at 08:21; Start 10/15/25 at 09:00; Stop 11/14/25 at 08:59 Furosemide 40 mg DAILY IV Last administered on 10/15/25at 08:22; Start 10/15/25 at 09:00; Stop 11/14/25 at 08:59 Potassium Phosphate 250 ml @ 42 mls/hr PROTOCOL ONCE IV Last administered on 10/14/25at 18:00; Start 10/14/25 at 17:30; Stop 10/14/25 at 23:27; Status DC Potassium Phos/ Sodium Phos 1 packet TID PO Last administered on 10/15/25at 14:18; Start 10/15/25 at 14:00; Stop 11/14/25 at 13:59 Potassium Phosphate 250 ml @ 42 mls/hr PROTOCOL ONCE IV; Start 10/15/25 at 10:30; Stop 10/15/25 at 10:17; Status DC Sodium Phosphate 15 mmol/Sodium Chloride 250 ml @ 62.5 mls/hr PROTOCOL ONCE IV Last administered on 10/15/25at 11:11; Start 10/15/25 at 10:30; Stop 10/15/25 at 14:29; Status DC BENEDICTO OBRIEN Jr. PAC Oct 15, 2025 14:57
[2025-10-15 16:00] VITALS: BP 105/60; PULSE 62; RESP 20; TEMP 97.7
--- NOTE | 2025-10-15 18:51 | PN ---
[facility] PROGRESS NOTE Date of Service: Oct 15, 2025 Time of Service: 18:42 SUBJECTIVE: This is a 55 year old female Diabetes, liver cirrhosis, esophageal varices, DVT, perisplenic abscess, acute gastritis, peritonitis with ESBL and E coli infection septic shock with a past surgical history of cholecystectomy, robotic sigmoid resection with takedown of colovesical fistula with a recent perforation of colonic anastomosis , diagnostic laparoscopy ,drain placement,abdominal wash out and creation of diverting loop ileostomy who was brought by EMS to the ED for complaints of abdominal pain and abdominal distention.Patient reports she was discharged yesterday from this facility even if she was not feeling well because she continues to have abdominal pain and distention she said and daughter was at bedside saying patient weighs 124 kg on admission and she was discharged home weighing 140 kgs and has been telling riri CERVANTES that patient is retaining fluids but still discharged her anyway she said.Patient states while at home she was unable to keep anything down because every time she eats her abdomen hurts and she became nauseated. Seen and examined patient in the ER awake,alert and coherent,patient appears uncomfortable and crying.Patient has diffuse abdominal tenderness on palpation.Patient has an Ileostomy which is patent and normally functioning.Patient denies fever,chills,vomiting,chest pain,palpitation and cough.Patient states she has occasional shortness of breath.Latest V/S latest vital signs temperature 99, heart rate 98, blood pressure 106/61 saturation 100% on room air. Labs: WBC 5.6, neutrophils 72, hemoglobin 9, hematocrit 29 and platelet count 137. Lactic acid 2.0, glucose 129, total calcium 7.7 albumin 2.2 nine the rest of the chemistries normal. Chest x-ray result revealed no acute cardiopulmonary pathology is evident. CT abdomen without contrast result revealed markedly progressed gross ascites and mesenteric fat stranding with generalized anasarca, concerning for worsening fluid overload. Moderate bilateral pleural effusions. Nodular hepatic margins consistent with cirrhotic changes stable. Distended small bowel loops without transition point likely ileus/enteritis new from prior. Calcified gallbladder wall stable. Post Ileostomy status. Stable scattered colonic diverticulosis. Small hiatus hernia stable removal of pigtail catheter from sub splenic collection with resultant mild peritoneal thickening. No acute intra-abdominal abnormality otherwise. While in the ER patient received morphine 2 mg IV, Zofran 4 mg IV Rocephin 2 g IV NS 500 IV bolus and Reglan 10 mg IV.Patient is pending for NGT insertion.Er called and recommended to admit the patient. 10/08/2025: Patient was seen and examined this morning at bedside. The patient is accompanied by her daughter. The patient is on NG tube, which has very minimal output. The patient appears uncomfortable with the NG tube, and complains that it is bothering her and causing her pain. The patients daughter states the patient is not regularly using the restroom to urinate. The patient reports she believes she is retaining urine. We will order a bladder scan and follow up with the results. The patients abdomen appears distended upon physical examination. Patient reports tenderness bilaterally in the flank regions. Bowel sounds were hypoactive upon auscultation. No peripheral edema is noted. Heart sounds are heard, no murmurs appreciated. Interventional radiology has been called for possible paracentesis due to the patients ascites. The patient will be started on daily IV Lasix and Aldactone. We will continue to monitor her electrolytes daily, and correct accordingly. Pregabalin has been added to her pain regimen. The patient denies chest pain, shortness of breath, nausea, vomiting, fever, chills. 10/09/2025: She was evaluated at the bedside this morning. No overnight event. She is AAO x3. She do complain of mild abdominal discomfort on the right and left upper abdomen. She is hemodynamically stable. NG tube was taken out and started on clear liquid diet. Labs remarkable for WBC 3.2, hemoglobin 8.4, platelet 116, phosphorus 1.9, CRP 40.1, bicarbonate 2. 24 hour blood culture negative. She is on [id number] mg, furosemide 40 mg IV, duloxetine, quetiapine, pregabalin, sodium bicarbonate, midodrine, pantoprazole, Rocephin and PRN pain med. She do have a large ascites. Plan is to get ascitic tapping for both therapeutic and diagnostic. Surgery recommended to get HIDA scan for the possible recurrent acute cholecystitis. Psychiatry recommended to restart her on Cymbalta and Seroquel. For her hypo phosphatase Kaity, we have started her on Neutra-Phos times a day and give 1 dose of IV [id number] millimole. GI on the board. Rest of the plan as discussed below. 10/10/2025: Patient is seen and evaluated in the room 306. She do complain of mild abdominal discomfort on the right and left upper abdomen. Her vitals are in the normal range. Her labs are in the normal range except for hemoglobin is 8.1, magnesium is 1.7. She had her HIDA scan done today and it showed acute cholecystitis. As her magnesium is low we replaced it. She is supposed to undergo paracentesis tomorrow. 10/11/2025: Patient is seen and evaluated in the room 306. She complained of mild abdominal pain. Her vitals are in the normal range. Her labs are normal except for hemoglobin is 8.2, WBC is 2.9, MCV is 101.2, RDW is 18.1, platelet is 108, magnesium is 1.5, phosphorus is 2, iron is 40, TIBC is 167,% saturation is 23.9. We gave her PPN. She underwent paracentesis today and they removed 1litre of fluid and they sent it for analysis and it is negative. Her blood culture is negative. Gram stain of ascitic fluid no organisms are seen. We stopped Phos Nak packet to IV potassium phosphate. We will repeat the phosphorus tomorrow. She is started on regular diet. General surgery recommended cholecystectomy on Saturday. So we will hold the lasix tomorrow. 10/12/2025: Patient is seen and evaluated in the room 306. She has no symptoms today. Her vitals are in the normal range. She is able to tolerate her diet. Her labs are normal except for hemoglobin 8.6, MCV is 100.4, RDW is 17.6, potassium is 3.1, glucose is 177. Her phosphorus is 1.9 So we added potassium phosphate 1 dose and we restarted Phos-Nak packet. As she is having surgery tomorrow we stopped her lasix and aldactone. We also reduced the dose of bicarbonate to QID to TID. 10/13/2025: Patient is seen and evaluated in the room 306. She has no symptoms today. Her vitals are in the normal range. Labs are normal except for WBC 4.5, hemoglobin 9.9, phosphorus 1.6. Her bile fluid culture showed no growth at 24 to 35 hours. She underwent laparoscopic cholecystectomy today. We also added potassium phosphate as her phosphorus is low and we will repeat her phosphorus level tomorrow. We resume her Lasix and Aldactone tomorrow. 10/14/2025: Patient is seen and evaluated in the room 306. Today is her post op day 1. She complained of mild abdominal pain today. Her vitals are in the normal range. Her labs are normal except for hemoglobin is 9, bicarbonate is 19, phosphorus is 1.8, magnesium is 1.7, AST 45. Her ascitic fluid culture showed no growth after 48 to 59 hours. She is on a clear liquid diet and she said that she is able to eat little but she slept off and when she woke up. She didn't eat the rest because her food got cold. Gastroenterology saw the patient and they recommended no intervention at this time and they advised to follow up with them after the discharge. General surgery recommended patient should remain overnight for continued observation and she can be discharged tomorrow. Today we resumed the dose of morphine and we restarted her lasix and aldactone. 10/15/2025: Patient is seen and evaluated in the room 306. Today is her post op day 2. She complained of mild abdominal pain. Her vitals are in the normal range. Her Labs are normal except for hemoglobin 9.5, WBC 3.3, phosphorus 1.8. As she is able to tolerate clear liquid diet. We advance the diet to GI soft diet. As she is cleared by surgery and GI we thought of discharging her but her daughter disagreed. So we held her discharge. REVIEW OF SYSTEMS CONSTITUTIONAL: Denies fevers, chills, or night sweats. No unintentional weight loss reported. NEUROLOGICAL: Denies headache, amaurosis fugax, motor weakness, sensory deficit, vertigo/spinning sensation, gait abnormalities, or tremors. ENT: No hearing loss, otalgia, otorrhea, rhinitis, rhinorrhea, hoarseness, or sore throat. CARDIOVASCULAR: Denies any exertional angina, dyspnea on exertion, orthopnea, paroxysmal nocturnal dyspnea, palpitations, life-threatening arrhythmias, claudication. PULMONARY: Denies any shortness of breath, cough, phlegm/sputum, hemoptysis, pleuritic chest pain. SLEEP: Denies morning headaches, daytime somnolence or napping. Denies difficulty falling asleep, staying asleep, waking from sleep. Denies knowledge of snoring. GASTROINTESTINAL: Complains of abdominal distention, and abdominal pain. Denies any type of dysphagia to either liquids or solids. Denies vomiting, pyrosis, early satiety, diarrhea, constipation, or changes in stool consistency or caliber. Denies coffee-ground emesis, hematemesis, hematochezia, or melanotic stools. GENITOURINARY: Denies frequency, urgency, nocturia, hematuria or incontinence (Storage/Irritative symptoms.) Low urinary stream, straining to void, urinary intermittency or hesitancy, splitting of the voiding stream, terminal dribbling. ENDOCRINOLOGIC: Denies polyuria, polydipsia, polyphagia or heat/cold intolerances. HEMATOLOGIC: Denies thrombophilia/previous clots, or coagulopathy/bleeding disorders. ONCOLOGIC: Denies personal history of malignancy. DERMATOLOGIC: Denies rashes or pruritus. PSYCHIATRIC: Denies any suicidal or homicidal ideation. Denies hallucinations. PHYSICAL EXAM GENERAL APPEARANCE: The patient is awake, alert, and oriented, in no acute cardiopulmonary distress. NEUROLOGICAL: Cranial nerves II-XII grossly intact. Motor is 5/5 in bilateral upper and lower extremities proximal to distal. No sensory deficits. HEENT: Face is symmetric. Pupils are equal and reactive. Extraocular movements are intact. NECK: Supple. No JVD. No thyromegaly. No submental, submandibular, pre- /postauricular, occipital or supraclavicular lymphadenopathy. CHEST: Normal chest expansion. No Telemetry. LUNGS: Absence of any rales, rhonchi or any wheezing. CARDIOVASCULAR: Regular. S1 and S2 normal. No appreciable rubs, murmurs or gallops. ABDOMEN: Positive hypoactive bowel sounds, diffuse tenderness x4 abdominal quadrants patient+ Ileostomy Soft and distended. Three incisions on the abdomen which were dressed. There is no rebound, voluntary guarding, or rigidity. : Deferred. No Dueñas. EXTREMITIES: Non-edematous and not cyanotic. No clubbing. Good capillary refill. SKIN: No skin breakdown. Vital Signs (last 8hr) Date Time Temp Pulse Resp B/P (MAP) Pulse Ox O2 Delivery O2 Flow Rate FiO2 10/15/25 12:00 98.1 80 20 136/74 100 Room Air LABS: Laboratory: Test 10/15/25 16:25 10/15/25 04:59 10/14/25 05:10 Range/Units Whole Blood Glucose 124 H 70-110 MG/DL White Blood Count 3.3 #L 4.8-10.8 K/uL Red Blood Count 2.97 L 4.00-5.50 MIL/uL Hemoglobin 9.5 L 12.0-16.0 g/dL Hematocrit 30.0 L 36-48 % Mean Corpuscular Volume 101.0 H 79-99 fL Mean Corpuscular Hemoglobin 32.0 27.0-33.0 pg Mean Corpuscular Hemoglobin Concent 31.7 L 32.0-36.0 g/dL Red Cell Distribution Width 17.9 H 11.0-15.5 % Platelet Count 137 130-400 K/uL Mean Platelet Volume 9.7 7.5-10.5 fL Nucleated Red Blood Cells 0.0 0.0-0.19 % Sodium Level 140 136-145 mmol/L Potassium Level 4.1 3.5-5.1 mmol/L Chloride Level 109 101-111 mmol/L Carbon Dioxide Level 23 21-32 mmol/L Blood Urea Nitrogen 9 7-18 mg/dL Creatinine 0.7 0.5-1.0 mg/dL Glomerular Filtration Rate Calc 101 >90 mL/min Random Glucose 89 70-105 mg/dL Total Calcium 7.8 L 8.5-10.1 mg/dL Phosphorus Level 1.8 L 2.5-4.9 mg/dL Magnesium Level 2.00 1.80-2.40 mg/dL Total Bilirubin 0.4 0.2-1.0 mg/dL Aspartate Amino Transf (AST/SGOT) 45 H 10-37 U/L Alanine Aminotransferase (ALT/SGPT) 12 12-78 U/L Alkaline Phosphatase 62 50-136 U/L Total Protein 5.6 L 6.0-8.3 g/dL Albumin 2.3 L 3.5-5.0 g/dL Current Medications Medications (Trade) Dose Ordered Sig/Gregory Route PRN Reason Start Time Stop Time Status Last Admin Dose Admin Albumin Human 50 ml @ 0 mls/hr AD IV 10/09/25 17:00 10/12/25 13:28 DC 10/09/25 21:30 50 MLS/HR Ceftriaxone Sodium 1 gm/ Sodium Chloride 50 ml @ 100 mls/hr Q24H IV 10/08/25 09:00 10/07/25 23:39 DC Ceftriaxone Sodium (ROCEphine 1G INJ) 1 gm Q24H IVPB 10/07/25 23:45 10/17/25 23:44 10/15/25 00:07 1 GM Dextrose (D50w) 50 ml AD PRN IV HYPOGLYCEMIA PROTOCOL 10/07/25 23:30 10/11/25 11:30 DC 10/11/25 05:19 50 ML Dicyclomine HCl (Bentyl 20mg Tab) 10 mg Q6H6 PO 10/08/25 12:00 11/07/25 11:59 10/15/25 17:41 10 MG Duloxetine HCl (CymbALTA 30 mg CAP) 20 mg BID PO 10/08/25 21:00 10/08/25 21:25 DC Duloxetine HCl (CymbALTA 30 mg CAP) 30 mg BID PO 10/08/25 22:00 11/07/25 21:59 10/15/25 08:22 30 MG Folic Acid (FOLic ACID 1 MG TABLET) 1 mg DAILY PO 10/09/25 09:00 11/08/25 08:59 10/15/25 08:22 1 MG Furosemide (LASix 40MG VIAL) 40 mg DAILY IV 10/15/25 09:00 11/14/25 08:59 10/15/25 08:22 40 MG Furosemide (LASix 40MG VIAL) 40 mg DAILY IV 10/09/25 09:00 10/12/25 13:27 DC 10/12/25 09:22 40 MG Gabapentin (NEURontin 100 mg CAP) 100 mg TID PO 10/13/25 21:00 11/12/25 20:59 10/15/25 14:17 100 MG Glucagon (Glucagon 1mg Kit) 1 mg AD PRN IM HYPOGLYCEMIA PROTOCOL 10/07/25 23:30 11/06/25 23:29 Insulin Human Regular (humuLIN R 100 UNIT/ML 3ML) INSULIN SLIDING SCAL... ACHS SQ 10/08/25 07:30 11/07/25 07:29 Lactated Ringer's 1,000 ml @ 50 mls/hr Q20H IV 10/07/25 23:30 10/08/25 10:45 DC 10/08/25 01:34 50 MLS/HR Magnesium Sulfate 50 ml @ 0 mls/hr PROTOCOL PRN IV MAG LEVEL BELOW 2.0 10/10/25 10:00 11/09/25 09:59 10/14/25 06:23 25 MLS/HR Metronidazole/ Sodium Chloride 100 ml @ 100 mls/hr Q8H IVPB 10/10/25 22:00 10/20/25 21:59 10/15/25 14:18 100 MLS/HR Midodrine (PROAMatine 5 MG TABLET) 10 mg Q8H PO 10/08/25 11:30 11/07/25 11:29 10/15/25 18:31 10 MG Morphine Sulfate (morPHINE 2MG SYG) 1 mg Q4H PRN IVP SEVERE PAIN (7-10) 10/14/25 14:00 10/21/25 13:59 10/15/25 14:26 1 MG Morphine Sulfate (morPHINE 2MG SYG) 2 mg Q4H PRN IV SEVERE PAIN (7-10) 10/07/25 23:30 10/13/25 02:29 DC 10/12/25 15:43 2 MG Morphine Sulfate (morPHINE 4MG SYG) 4 mg Q4H PRN IVP SEVERE PAIN (7-10) 10/13/25 18:00 10/14/25 10:32 DC 10/14/25 09:34 4 MG Ondansetron HCl (zoFRAN 4MG INJ) 4 mg Q6H PRN IV NAUSEA/VOMITING 10/07/25 23:30 11/06/25 23:29 10/12/25 07:26 4 MG Pantoprazole Sodium (PROTonix 40MG INJ) 40 mg DAILY IVP 10/08/25 09:00 11/07/25 08:59 10/15/25 08:22 40 MG Pharmacy Profile Note (Lace Assessment) 1 each AD MISC 10/08/25 10:30 10/08/25 10:33 DC Potassium Phosphate 250 ml @ 42 mls/hr PROTOCOL PRN IV PROTOCOL 10/13/25 10:00 10/13/25 10:01 DC Potassium Chloride 100 ml @ 100 mls/hr AD PRN IV POTASSIUM PROTOCOL 10/12/25 01:00 11/11/25 00:59 Potassium Chloride (K-Dur/Klor-Con 20meq) 20 meq AD PRN PO POTASSIUM PROTOCOL 10/12/25 01:00 11/11/25 00:59 10/12/25 23:48 20 MEQ Potassium Chloride (KCl 10% Elixir 20meq/15ml) 20 meq AD PRN PO POTASSIUM PROTOCOL 10/12/25 01:00 11/11/25 00:59 10/12/25 06:34 20 MEQ Potassium Phos/ Sodium Phos (PHOS-NaK PACKET 1 EACH) 1 packet TID PO 10/15/25 14:00 11/14/25 13:59 10/15/25 14:18 1 PACKET Potassium Phos/ Sodium Phos (PHOS-NaK PACKET 1 EACH) 1 packet TID PO 10/09/25 21:00 10/11/25 11:30 DC 10/10/25 20:31 1 PACKET Potassium Phos/ Sodium Phos (PHOS-NaK PACKET 1 EACH) 1 packet TID PO 10/12/25 21:00 10/14/25 20:59 DC 10/14/25 14:27 1 PACKET Pregabalin (LYRica 25MG) 25 mg DAILYDINNER PO 10/08/25 17:00 11/07/25 16:59 10/15/25 17:41 25 MG Quetiapine Fumarate (SEROquel 25 mg TAB) 25 mg HS PO 10/08/25 21:00 11/07/25 20:59 10/14/25 20:57 25 MG Simethicone (Mylicon) 80 mg TID PO 10/13/25 21:00 11/12/25 20:59 10/15/25 14:17 80 MG Sodium Bicarbonate (Sodium Bicarbonate) 1,300 mg QID PO 10/08/25 13:00 10/12/25 13:26 DC 10/12/25 12:47 1,300 MG Sodium Bicarbonate (Sodium Bicarbonate) 1,300 mg TID PO 10/12/25 14:00 11/07/25 12:59 10/15/25 14:17 1,300 MG Spironolactone (Aldactone 25mg) 25 mg DAILY PO 10/15/25 09:00 11/14/25 08:59 10/15/25 08:21 25 MG Spironolactone (Aldactone 25mg) 25 mg DAILY PO 10/09/25 09:00 10/12/25 13:28 DC 10/12/25 09:22 25 MG Vitamin B Complex (Vitamin B-12) 1,000 mcg DAILY PO 10/09/25 09:00 11/08/25 08:59 10/15/25 08:21 1,000 MCG DIAGNOSTICS / RADIOLOGY: [ ] ASSESSMENT: Acute cholecystitis s/p robotic laparoscopic cholecystectomy POD (day 2) Severe volume overload with worsening ascites per CT POA s/p paracentesis Mesenteric fat stranding likely inflammatory/ edematous process per CT POA Ileus post abdominal surgery POA Low hemoglobin Hypophosphatemia Hyomagnesemia Ileostomy status POA Protein calorie malnutrition POA Moderate bilateral pleural effusion CP POA Chronic anemia POA Diabetes POA PLAN: Acute cholecystitis s/p robotic laparoscopic cholecystectomy POD (day 2) -patient currently on clear liquid diet. We will advance her diet as she tolerated. -procalcitonin less than 0.05, CRP 40.10. -Patient is on Rocephin (day 9) for empiric coverage. -Pregabalin has been added to the patients pain regimen. -surgery recommended to get HIDA scan and it showed acute cholecystitis. -She underwent laparoscopic cholecystectomy on 10/14/2025. -General surgery recommended patient should remain overnight for continued observation and she can be discharged tomorrow. -Gastroenterology saw the patient and they recommended no intervention at this time and they advised to follow up with them after the discharge. Severe volume overload with worsening ascites s/p paracentesis -Lasix 40 mg IV daily -25 mg Aldactone daily -Interventional radiology has been consulted for possible paracentesis. -She underwent paracentesis 10/11/2025 and they removed 1 litre of fluid. They sent the ascitic fluid for analysis and it is normal. - We resumed her lasix and aldactone. Ileus post abdominal surgery -CT abdomen revealed mildly distended small bowel loops without transition point, likely ileus/enteritis. -surgery is on board. -we will correct her electrolytes. Low hemoglobin - Today her hemoglobin is 9.5, MCV is 101.0, RDW is 17.9. -iron 40, TIBC is 167 -We will continue to monitor her labs. Hypophosphatemia -phosphorus 1.8. -Today we gave her a dose of potassium phosphate and we started her on Phos-Nak packet. - We will repeat his labs tomorrow. Hyomagnesemia - Today her magnesium level is 2. - She is on Magnesium protocol. -We will repeat her labs tomorrow. MDD POA Anxiety POA -tele psych was consulted. Recommended to start her on Cymbalta 20 mg b.i.d. and Seroquel 25 mg q.h.s.. Ileostomy status POA -Output form the ileostomy is 640 ml today. We gave her 1 bag of PPN. She is currently on GI soft diet. Protonix daily for GI prophylaxis SCD's for DVT prophylaxis Home medications have been reconciled. ATTESTATION BY PHYSICIAN I have seen and examined the patient. I reviewed the documentation, medical decision making, and treatment plan as noted by the resident physician above. I agree with the findings and plan of care. BERTA Cole IV, MD, MD Oct 15, 2025 18:51
[2025-10-15 20:00] VITALS: BP 141/78; PULSE 80; RESP 18; TEMP 99
--- NOTE | 2025-10-15 23:20 | NUR ---
TREATMENT COLOSTOMY BAG LEAKING, CHANGED AT THIS TIME.
[2025-10-16] VITALS: BP 121/67; PULSE 76; RESP 18; TEMP 98.1
[2025-10-16 04:00] VITALS: BP 110/65; PULSE 83; RESP 18; TEMP 98.8
[2025-10-16 04:12] LABS: NUCLEATED RED BLOOD CELLS 0.0 % (0.0-0.19); PLATELET COUNT (AUTO) 158.0 K/uL (130-400); RED BLOOD CELL COUNT(AUTO) 2.88 MIL/uL (4.00-5.50); RED CELL DISTRIBUTION WIDTH 17.7 % (11.0-15.5); WHITE BLOOD COUNT (AUTO) 3.6 K/uL (4.8-10.8)
[2025-10-16 04:25] LABS: CREATININE 1.0 mg/dL (0.5-1.0); GLOMERULAR FILTR. RATE CALC 66.0 mL/min (>90); GLUCOSE,RANDOM 104.0 mg/dL (70-105); PHOSPHORUS 2.0 mg/dL (2.5-4.9); SODIUM SERUM 137.0 mmol/L (136-145); UREA NITROGEN, BLOOD 9.0 mg/dL (7-18)
[2025-10-16 08:00] VITALS: BP 119/64; PULSE 75; RESP 18; TEMP 97.1
[2025-10-16 11:08] VITALS: BP 110/65; PULSE 76; RESP 18; TEMP 98
--- NOTE | 2025-10-16 15:08 | DS ---
Discharge Summary Assessment/Plan: ASSESSMENT: Acute cholecystitis s/p robotic laparoscopic cholecystectomy POD (day 2) Severe volume overload with worsening ascites per CT POA s/p paracentesis Mesenteric fat stranding likely inflammatory/ edematous process per CT POA Ileus post abdominal surgery POA Low hemoglobin Hypophosphatemia Hyomagnesemia Ileostomy status POA Protein calorie malnutrition POA Moderate bilateral pleural effusion CP POA Chronic anemia POA Diabetes POA PLAN: Acute cholecystitis s/p robotic laparoscopic cholecystectomy POD (day 2) -patient currently on clear liquid diet. We will advance her diet as she tolerated. -procalcitonin less than 0.05, CRP 40.10. -Patient is on Rocephin (day 9) for empiric coverage. -Pregabalin has been added to the patients pain regimen. -surgery recommended to get HIDA scan and it showed acute cholecystitis. -She underwent laparoscopic cholecystectomy on 10/14/2025. -General surgery recommended patient should remain overnight for continued observation and she can be discharged tomorrow. -Gastroenterology saw the patient and they recommended no intervention at this time and they advised to follow up with them after the discharge. Severe volume overload with worsening ascites s/p paracentesis -Lasix 40 mg IV daily -25 mg Aldactone daily -Interventional radiology has been consulted for possible paracentesis. -She underwent paracentesis 10/11/2025 and they removed 1 litre of fluid. They sent the ascitic fluid for analysis and it is normal. - We resumed her lasix and aldactone. Ileus post abdominal surgery -CT abdomen revealed mildly distended small bowel loops without transition point, likely ileus/enteritis. -surgery is on board. -we will correct her electrolytes. Low hemoglobin - Today her hemoglobin is 9.5, MCV is 101.0, RDW is 17.9. -iron 40, TIBC is 167 -We will continue to monitor her labs. Hypophosphatemia -phosphorus 1.8. -Today we gave her a dose of potassium phosphate and we started her on Phos-Nak packet. - We will repeat his labs tomorrow. Hyomagnesemia - Today her magnesium level is 2. - She is on Magnesium protocol. -We will repeat her labs tomorrow. MDD POA Anxiety POA -tele psych was consulted. Recommended to start her on Cymbalta 20 mg b.i.d. and Seroquel 25 mg q.h.s.. Ileostomy status POA -Output form the ileostomy is 640 ml today. We gave her 1 bag of PPN. She is currently on GI soft diet. Protonix daily for GI prophylaxis SCD's for DVT prophylaxis Home medications have been reconciled. Home Medications: Active Scripts Quetiapine Fumarate (Quetiapine Fumarate) 25 Mg Tablet, 1 TAB PO HS for 30 Days, #30 TAB 0 Refills Prov:REBECCA GARCIA MD 10/06/25 Sodium Bicarbonate (Sodium Bicarbonate) 650 Mg Tablet, 1300 MG PO QID for 30 Days, #120 TAB Prov:REBECCA GARCIA MD 10/06/25 Nystatin (Nystop/Mycostatin Pwdr) 100,000 Unit/Gram Powder, 0 APPL TP DAILYPRN PRN for RASH, #1 APPL 1 Refill TO BE APPLIED AROUND THE STOMA NEEDED FOR RASH OR IRRITATION Prov:REBECCA GARCIA MD 10/06/25 [miDODRine HCL 5 MG TABLET] 5 MG TABLET No Conflict Check, 10 MG PO Q8H for 10 Days, #30 TAB 1 Refill Prov:REBECCA GARCIA MD 10/06/25 Folic Acid (Folvite) 1 Mg Tab, 1 MG PO DAILY, #15 TAB 1 Refill Prov:REBECCA GARCIA MD 10/06/25 Dicyclomine HCl (Bentyl) 20 Mg Tab, 10 MG PO Q6H6, #40 TAB 1 Refill Prov:REBECCA GARCIA MD 10/06/25 Cyanocobalamin (Vitamin B-12) (Vitamin B-12) 1,000 Mcg Tablet, 1000 MCG PO DAILY, #15 TAB 1 Refill Prov:REBECCA GARCIA MD 10/06/25 Bacitracin (Bacitracin) 500 Unit/Gram Oint...g., 0 GM TP Q8H, #1 GM 1 Refill TO BE APPLIED TOPICALLY THREE TIMES DAILY Prov:REBECCA GARCIA MD 10/06/25 SHARON CANSECO MD Oct 16, 2025 15:08
--- NOTE | 2025-10-16 16:54 | NUR ---
PATIENT DISCHARGED HOME ID BAND AND MIDLINE REMOVED. MIDLINE REMOVED BY CHARGE NURSE. DISCHARGE INSTRUCTIONS EXPLAINED AND GIVEN TO PATIENT. PATIENT VERBALIZED UNDERSTANDING. BELONGINGS PACKED AND TAKEN BY PATIENT. WHEELED DOWN TO PRIVATE CAR.
== END 2025-10-16 16:50 | disposition home or self-care (01) | DRG 263 ==
LOC: EDH 18:45 → EDHIP 18:46 → UNDOADMIN 23:20 → EDHIP 23:20 → 3BH 10-08 01:23
PROVIDERS: ADMIT Hospitalist; ATTEND Hospitalist
PROC: 0W9G3ZZ Drainage of Peritoneal Cavity, Percutaneous Approach (ICD-10-PCS; 2025-10-12)
PROC: 8E0W4CZ Robotic Assisted Procedure of Trunk Region, Percutaneous Endoscopic Approach (ICD-10-PCS; 2025-10-13)
PROC: 0FT44ZZ Resection of Gallbladder, Percutaneous Endoscopic Approach (ICD-10-PCS; principal; 2025-10-13 12:51)
DX: K81.0 Acute cholecystitis (principal); E46 Unspecified protein-calorie malnutrition; J90 Pleural effusion, not elsewhere classified; R18.8 Other ascites; E83.39 Other disorders of phosphorus metabolism; D63.8 Anemia in other chronic diseases classified elsewhere; E88.09 Other disorders of plasma-protein metabolism, not elsewhere classified; F33.1 Major depressive disorder, recurrent, moderate; K74.60 Unspecified cirrhosis of liver; K91.89 Other postprocedural complications and disorders of digestive system; K56.7 Ileus, unspecified; K57.30 Diverticulosis of large intestine without perforation or abscess without bleeding; Y83.8 Other surgical procedures as the cause of abnormal reaction of the patient, or of later complication, without mention of misadventure at the time of the procedure; Y82.8 Other medical devices associated with adverse incidents; K82.8 Other specified diseases of gallbladder; G47.00 Insomnia, unspecified; F41.9 Anxiety disorder, unspecified; K66.0 Peritoneal adhesions (postprocedural) (postinfection); K44.9 Diaphragmatic hernia without obstruction or gangrene; Z68.25 Body mass index [BMI] 25.0-25.9, adult; Z82.0 Family history of epilepsy and other diseases of the nervous system; Z82.3 Family history of stroke; Z82.49 Family history of ischemic heart disease and other diseases of the circulatory system; Z82.5 Family history of asthma and other chronic lower respiratory diseases; Z83.3 Family history of diabetes mellitus; Z93.2 Ileostomy status; Z93.3 Colostomy status; Z79.899 Other long term (current) drug therapy
CPT/HCPCS: 36415; 36556; 49083; 71045; 74150; 78226; 80048; 80053; 80076; 82040; 82607; 82746; 82948; 83540; 83550; 83605; 83690; 83735; 83880; 84100; 84132; 84145; 84484; 85025; 85027; 85610; 86140; 87040; 87071; 87205; 88304; 89051; 93005; 96374; 96375; 99285; A9537; C1729; C1894; G0378; J0696; J1938; J2250; J2270; J2405; J2470; J2704; J2765; J3010; J3430; J3475; J3490; J7030; J7040; J7050; J7070; J7120; P9045; P9047; A4216; A4222; A4223; A4600; A4649; C1750; C1769; J0665